=== PATIENT | female | born 1995 | race Caucasian/White ===

== ENCOUNTER 2023-04-23 12:05 | Emergency (ER) | payer OTHER, SELFPAY ==
[2023-04-23 12:15] VITALS: BP 135/77; PULSE 82; RESP 14; TEMP 36.8; O2SAT 96; BMI 29.3
[2023-04-23 12:41] LABS: Bilirubin Urine NEGATIVE (NEGATIVE); Blood Urine NEGATIVE (NEGATIVE); Clarity Urine CLEAR (CLEAR); Color Urine LT. YELLOW (YELLOW); Glucose Urine UA NEGATIVE (NEGATIVE); Ketones Urine NEGATIVE (NEGATIVE); Leukocyte Esterase Urine NEGATIVE (NEGATIVE); Nitrite Urine NEGATIVE (NEGATIVE); Protein Urine NEGATIVE (NEG/TRACE); Specific Gravity Urine <=1.005 (1.005-1.025); Urobilinogen Urine 0.2 EU/dL (0.2-1.0)
[2023-04-23 12:45] LABS: Urine Microscopic Indicated NO
--- NOTE | 2023-04-23 12:47 | ED_ITS ---
HPI - Female Genitourinary General Chief complaint: Urogenital-Female Stated complaint: UTI SYMPTOMS Time Seen by Provider: 04/23/23 12:41 Source: patient Mode of arrival: walk-in History of Present Illness HPI Narrative: 27-year-old female presents with concerns of or urinary tract infection. She hasn't had a period since February 21 and she has a 7-month-old boy. Dysuria hematuria but her urine was dark. No abdominal pain. Related Data Home Medications Medication Instructions Recorded Confirmed No Known Home Medications 04/23/23 04/23/23 Allergies Allergy/AdvReac Type Severity Reaction Status Date / Time amoxicillin Allergy Severe Verified 04/23/23 12:15 Penicillins Allergy Severe Verified 04/23/23 12:15 Review of Systems ROS Narrative A ten point review of systems is negative except as noted above. Exam Narrative Exam Narrative: Nurses note and vital signs reviewed and patient is not hypoxic. General: The patient appears well and in no apparent distress. Patient is resting comfortably on cart. Skin: Warm, dry, no pallor noted. There is no rash noted. Head: Normocephalic, atraumatic Eye: Normal conjunctiva, no drainage Ears, Nose, Mouth, and Throat: oral mucosa is moist. Nares patent. Cardiovascular: Regular Rate and Rhythm Respiratory: Patient is in no distress, no accessory muscle use, lungs are clear to auscultation, no wheezing, rales or rhonchi Back: non-tender GI: soft and nontender Musculoskeletal: The patient has no evidence of calf tenderness, no pitting edema, symmetrical pulses noted bilaterally Neurological: A&O, normal speech Psychiatric: Cooperative Constitutional Vital Signs, click to edit/add: Last Vital Signs Temp 98.2 F 04/23/23 12:15 Pulse 82 04/23/23 12:15 Resp 14 04/23/23 12:15 BP 135/77 H 04/23/23 12:15 Pulse Ox 96 04/23/23 12:15 O2 Del Method Room Air 04/23/23 12:15 Course Vital Signs Vital signs: Vital Signs Temperature 98.2 F 04/23/23 12:15 Pulse Rate 82 04/23/23 12:15 Respiratory Rate 14 04/23/23 12:15 Blood Pressure 135/77 H 04/23/23 12:15 Pulse Oximetry 96 04/23/23 12:15 Oxygen Delivery Method Room Air 04/23/23 12:15 Temperature 98.2 F 04/23/23 12:15 Pulse Rate 82 04/23/23 12:15 Respiratory Rate 14 04/23/23 12:15 Blood Pressure 135/77 H 04/23/23 12:15 Pulse Oximetry 96 04/23/23 12:15 Oxygen Delivery Method Room Air 04/23/23 12:15 MDM - Female Genitourinary MDM Narrative Medical decision making narrative: test is positive. No evidence of urinary tract infection and patient is informed. She'll follow-up with her probation and parole officer. I've no clinical concern for ectopic . Differential Diagnosis Differential diagnosis: Likely urinary tract infection and other () Lab Data Attestation: I reviewed the patient's lab results. Lab results narrative: test is positive. No evidence of urinary tract infection. Labs: Lab Results 04/23/23 Range/Units 12:20 Urine Color Lt. yellow (YELLOW) Urine Clarity Clear (CLEAR) Urine pH 6.0 (5.0-9.0) Ur Specific [place] <=1.005 A (1.005-1.025) Urine Protein Negative (NEG/TRACE) mg/dL Urine Glucose (UA) Negative (NEGATIVE) mg/dL Urine Ketones Negative (NEGATIVE) mg/dL Urine Occult Blood Negative (NEGATIVE) Urine Nitrite Negative (NEGATIVE) Urine Bilirubin Negative (NEGATIVE) Urine Urobilinogen 0.2 (0.2-1.0) EU/dL Ur Leukocyte Esterase Negative (NEGATIVE) Urine HCG, Qual Positive A (NEGATIVE) Discharge Plan Discharge Chief Complaint: Urogenital-Female Clinical Impression: Patient Disposition: Home, Self-Care Time of Disposition Decision: 14:13 Mode of Transportation: Private Vehicle Prescriptions / Home Meds: No Action No Known Home Medications Instructions: (ED) Stand Alone Forms: Portal Instructions Referrals: Physician,Non-Staff, [Primary Care Provider] - 1 week Discharge Date/Time: 04/23/23 14:18
[2023-04-23 13:46] LABS: HCG Qualitative Urine* POSITIVE (NEGATIVE)
== END 2023-04-23 14:18 | disposition home or self-care (01) ==
PROVIDERS: Emergency Provider Emergency Medicine
DX: Z32.01 Encounter for pregnancy test, result positive (principal)
CPT/HCPCS: 81003; 84703; 99283

== ENCOUNTER 2023-07-09 02:19 | Emergency (ER) | payer OTHER, SELFPAY ==
[2023-07-09 02:22] VITALS: BP 131/77; PULSE 83; RESP 18; TEMP 36.3; O2SAT 99; BMI 29.2
--- NOTE | 2023-07-09 02:34 | ED_ITS ---
HPI - Abdominal Pain General Chief Complaint: Abdominal Pain Stated Complaint: ABD PAIN 16 WKS PREG Time Seen by Provider: 07/09/23 02:32 Source: patient Mode of arrival: walk-in Limitations: no limitations History of Present Illness HPI narrative: 16 weeks . Presents complaining of abdominal pain. N urinary symptoms. No fever. MD elicited complaint: Reports abdominal pain Related Data Home Medications Medication Instructions Recorded Confirmed levothyroxine 25 mcg tablet 75 mcg PO DAILY 07/09/23 07/09/23 Allergies Allergy/AdvReac Type Severity Reaction Status Date / Time amoxicillin Allergy Severe Verified 04/23/23 12:15 Penicillins Allergy Severe Verified 04/23/23 12:15 Review of Systems ROS Status of ROS 10 or more systems reviewed and unremarkable except as noted in history and below Exam Constitutional Vital Signs, click to edit/add: Last Vital Signs Temp 97.3 F L 07/09/23 02:22 Pulse 83 07/09/23 02:22 Resp 18 07/09/23 02:22 BP 131/77 07/09/23 02:22 Pulse Ox 99 07/09/23 02:22 O2 Del Method Room Air 07/09/23 02:22 Common normals: no apparent distress, average body habitus, oriented x3, no limitations, healthy appearing and alert HENMI Common normals: normocephalic Eye Common normals: PERRL, EOMs intact bilaterally and conjunctivae normal Respiratory Common normals: normal respiratory effort, no retractions, no use of accessory muscles and clear to auscultation bilaterally Cardio Common normals: regular rate, regular rhythm, S1 normal heart sound and S2 normal heart sound GI Other: suprapubic tenderness Extremity Common normals: normal to inspection and full ROM Neuro Common normals: oriented x3, CN's II-XII intact bilaterally, moves all extremities, no focal motor deficits and no sensory deficits noted Psych Appearance: grossly normal Course Vital Signs Vital signs: Vital Signs Temperature 97.3 F L 07/09/23 02:22 Pulse Rate 83 07/09/23 02:22 Respiratory Rate 18 07/09/23 02:22 Blood Pressure 131/77 07/09/23 02:22 Pulse Oximetry 99 07/09/23 02:22 Oxygen Delivery Method Room Air 07/09/23 02:22 Temperature 97.3 F L 07/09/23 02:22 Pulse Rate 83 07/09/23 02:22 Respiratory Rate 18 07/09/23 02:22 Blood Pressure 131/77 07/09/23 02:22 Pulse Oximetry 99 07/09/23 02:22 Oxygen Delivery Method Room Air 07/09/23 02:22 MDM - Abdominal Pain MDM Narrative Medical decision making narrative: 16 wks . presents complaining of abdominal cramping. Exam with suprapubic tenderness. Labs CBC, CMP and UA WNL. Patient hydrated with NS and re examined. Admits now her abdomen is feeling better. on re exam she is no longer tender. Discharged home in improved condition Lab Data Labs: Lab Results 07/09/23 07/09/23 Range/Units 02:29 02:48 WBC 7.3 (4.0-11.0) 10^3/uL RBC 3.93 L (4.20-5.40) 10^6/uL Hgb 11.9 L (12.0-16.0) g/dL Hct 35.4 L (36.0-48.0) % MCV 90.1 (81.0-99.0) fL MCH 30.3 (26.7-34.0) pg MCHC 33.6 (29.9-35.2) g/dL RDW 12.9 (11.0-15.0) % Plt Count 254 (150-450) 10^3/uL MPV 9.9 (9.5-13.5) fL Neut % (Auto) 62.6 (43.0-75.0) % Lymph % (Auto) 27.0 (20.5-60.0) % [place] % (Auto) 7.8 (1.7-12.0) % Eos % (Auto) 1.8 (0.9-7.0) % Baso % (Auto) 0.5 (0.2-2.0) % Neut # (Auto) 4.6 (1.4-6.5) 10^3/uL Lymph # (Auto) 2.0 (1.2-3.8) 10^3/uL [place] # (Auto) 0.6 (0.3-0.8) 10^3/uL Eos # (Auto) 0.1 (0.0-0.7) 10^3/uL Baso # (Auto) 0.0 (0.0-0.1) 10^3/uL Abs Immat Gran (auto) 0.02 (0.00-0.03) 10^3/uL Imm/Tot Granulo (auto) 0.3 (0.0-0.5) % Sodium 137 (136-145) mmol/L Potassium 3.7 (3.5-5.1) mmol/L Chloride 104 (98-107) mmol/L Carbon Dioxide 23.5 (21.0-32.0) mmol/L Anion Gap 13.2 BUN 16.0 (7.0-18.0) mg/dL Creatinine 0.64 (0.55-1.02) mg/dL Est GFR ( Amer) >60 (>=60) Est GFR (Non-Af Amer) >60 (>=60) BUN/Creatinine Ratio 25.0 Glucose 76 (74-106) mg/dL Calcium 8.3 L (8.5-10.1) mg/dL Total Bilirubin 0.2 (0.2-1.0) mg/dL AST 14 L (15-37) U/L ALT <6 L (14-59) U/L Alkaline Phosphatase 38 L (46-116) U/L Total Protein 6.5 (6.4-8.2) g/dL Albumin 2.8 L (3.4-5.0) g/dL Globulin 3.7 g/dL Albumin/Globulin Ratio 0.8 Urine Color Lt. yellow (YELLOW) Urine Clarity Clear (CLEAR) Urine pH 6.5 (5.0-9.0) Ur Specific [place] 1.025 (1.005-1.025) Urine Protein Negative (NEG/TRACE) mg/dL Urine Glucose (UA) Negative (NEGATIVE) mg/dL Urine Ketones Negative (NEGATIVE) mg/dL Urine Occult Blood Negative (NEGATIVE) Urine Nitrite Negative (NEGATIVE) Urine Bilirubin Negative (NEGATIVE) Urine Urobilinogen 1.0 (0.2-1.0) EU/dL Ur Leukocyte Esterase Trace A (NEGATIVE) Urine RBC 0-2 (0-2) #/HPF Urine WBC 2-5 A (NONE SEEN) #/HPF Ur Squamous Epith Cells Few A (NONE/RARE) #/LPF Urine Crystals None seen (None Seen) #/HPF Urine Bacteria Trace A (NONE SEEN) #/HPF Urine Casts None seen (NONE SEEN) #/LPF Urine Mucus Trace A (NONE SEEN) Ur Culture Indicated? No Discharge Plan Discharge Chief Complaint: Abdominal Pain Clinical Impression: Abdominal pain during Patient Disposition: Home, Self-Care Prescriptions / Home Meds: No Action levothyroxine 25 mcg tablet 75 mcg PO DAILY Instructions: Abdominal Pain in (ED) Additional Instructions: drink plenty of fluids. Follow up in one day with your doctor for a recheck. Return if pain recurs Stand Alone Forms: Portal Instructions Referrals: Physician,Non-Staff, MD [Primary Care Provider] - 1 week
[2023-07-09 02:59] LABS: Bilirubin Urine NEGATIVE (NEGATIVE); Blood Urine NEGATIVE (NEGATIVE); Clarity Urine CLEAR (CLEAR); Color Urine LT. YELLOW (YELLOW); Glucose Urine UA NEGATIVE (NEGATIVE); Ketones Urine NEGATIVE (NEGATIVE); Leukocyte Esterase Urine TRACE (NEGATIVE); Nitrite Urine NEGATIVE (NEGATIVE); Protein Urine NEGATIVE (NEG/TRACE); Specific Gravity Urine 1.025 (1.005-1.025); pH Urine 6.5 (5.0-9.0)
[2023-07-09 02:59] LABS: Basophils Percent Auto 0.5 % (0.2-2.0); Eosinophils Absolute Auto 0.1 10^3/uL (0.0-0.7); Eosinophils Percent Auto 1.8 % (0.9-7.0); Hematocrit 35.4 % (36.0-48.0); Hemoglobin 11.9 g/dL (12.0-16.0); Immature Granulocytes Abs Auto 0.02 10^3/uL (0.00-0.03); Immature Granulocytes Pct Auto 0.3 % (0.0-0.5); Mean Corpuscular HGB Conc 33.6 g/dL (29.9-35.2); Mean Corpuscular Hemoglobin 30.3 pg (26.7-34.0); Mean Corpuscular Volume 90.1 fL (81.0-99.0); Mean Platelet Volume 9.9 fL (9.5-13.5); Monocytes Absolute Auto 0.6 10^3/uL (0.3-0.8); Monocytes Percent Auto 7.8 % (1.7-12.0); Neutrophils Absolute Auto 4.6 10^3/uL (1.4-6.5); Neutrophils Percent Auto 62.6 % (43.0-75.0); Platelet Count 254 10^3/uL (150-450); Red Blood Count 3.93 10^6/uL (4.20-5.40); Red Cell Distribution Width 12.9 % (11.0-15.0); White Blood Count 7.3 10^3/uL (4.0-11.0)
[2023-07-09 03:00] LABS: Urine Microscopic Indicated YES
[2023-07-09] MEDS: 0.9 % SODIUM CHLORIDE 1,000 ML 999 ML IV (03:06)
[2023-07-09 03:12] LABS: Bacteria Urine TRACE #/HPF (NONE SEEN); Mucus Urine TRACE (NONE SEEN); RBC Urine 0-2 #/HPF (0-2)
[2023-07-09 03:13] LABS: Cast Seen? NONE SEEN #/LPF (NONE SEEN); Crystals Seen? None Seen #/HPF (None Seen); Squamous Epithelial Cell Urine FEW #/LPF (NONE/RARE); Urine Culture Indicated NO
[2023-07-09 03:26] LABS: Alanine Aminotransferase <6 U/L (14-59); Albumin Globulin Ratio 0.8; Albumin Level 2.8 g/dL (3.4-5.0); Alkaline Phosphatase 38 U/L (46-116); Anion Gap 13.2; Aspartate Amino Transferase 14 U/L (15-37); Bilirubin Total 0.2 mg/dL (0.2-1.0); Calcium 8.3 mg/dL (8.5-10.1); Carbon Dioxide 23.5 mmol/L (21.0-32.0); Chloride 104 mmol/L (98-107); Estimated GFR (African America >60 (>=60); Estimated GFR (Non-African Ame >60 (>=60); Globulin 3.7 g/dL; Glucose 76 mg/dL (74-106); Potassium 3.7 mmol/L (3.5-5.1); Sodium 137 mmol/L (136-145); Total Protein 6.5 g/dL (6.4-8.2)
== END 2023-07-09 04:38 | disposition home or self-care (01) ==
PROVIDERS: Emergency Provider Internal Medicine
DX: O26.892 Other specified pregnancy related conditions, second trimester (principal); R10.9 Unspecified abdominal pain; Z3A.16 16 weeks gestation of pregnancy; Z79.890 Hormone replacement therapy
CPT/HCPCS: 36415; 80053; 81001; 85025; 99284

== ENCOUNTER 2023-07-17 10:10 | Outpatient (OUT) | payer OTHER, SELFPAY ==
[2023-07-17 12:22] LABS: Estimated Average Glucose 91 mg/dL; Glycohemoglobin A1C 4.8 % (4.5-6.2)
[2023-07-17 13:36] LABS: Thyroid Stimulating Hormone 4.087 uIU/mL (0.358-3.740)
[2023-07-18 07:10] LABS: HCV Antibody Non Reactive (Non Reactive); Rubella Antibodies, IgG <0.90 index (Immune >0.99)
[2023-07-19 01:09] LABS: AFP Value 30.7 ng/mL (.); Gest. Age on Collection Date 17.1 weeks (.); Insulin Dep Diabetes No (.); Maternal Age At EDD 30.1 yr (.); OSBR Risk 1 IN 10000 (.); Results Report (.)
== END 2023-07-17 10:11 | disposition home or self-care (01) ==
LOC: LAB 10:12
PROVIDERS: Visit Provider Obstetrics & Gynecology
DX: Z34.92 Encounter for supervision of normal pregnancy, unspecified, second trimester (principal)
CPT/HCPCS: 36415; 82105; 83036; 84443; 86762; 86803

== ENCOUNTER 2023-08-06 07:30 | Outpatient (OUT) | payer OTHER, SELFPAY ==
--- NOTE | 2023-08-06 07:35 | US_ITS ---
[address] [address] Patient Name: DEANDRA MOCTEZUMA MRN: [id number] date: 1995 Sex: F Assigned Patient Location: US Current Patient Location: US Accession/Order Number: [id number] Exam Date: 08/06/2023 07:45 Report Date: 08/06/2023 21:42 At the request of: JOSSE PURVIS Procedure: US OB anatomy EXAMINATION: US OB anatomy, US OB transvaginal HISTORY: Second Trimester Z34.92 COMPARISON: No relevant comparison available. TECHNIQUE: Transabdominal sonographic examination was performed for obstetrical and evaluation. FINDINGS: Number: 1 Heart Rate: 144.4 bpm H.B. /min Amniotic Fluid Volume: Subjectively normal Placental Location: Posterior fundal; lower margin 7.9 cm from os. Cervix Length: 4.2 cm; closed. ANATOMY: Normal Structures -cerebellum, choroid plexus, cisterna magna, lateral cerebral ventricles, orbits, midline falx, hard palate, four-chamber heart, RVOT, LVOT, stomach, kidneys, bladder, umbilical cord insertion into abdomen, three-vessel cord, cervical spine, thoracic spine, lumbar spine, sacral spine, right upper extremity, left upper extremity, right lower extremity, left lower extremity. SUBOPTIMALLY SEEN: None ABNORMALITIES: None BIOMETRY: BPD: 4.7 cm 20 weeks 1 days ; 48% HC: 17.2 cm 19 weeks 5 days; 25% AC: 15.5 cm 20 weeks 5 days; 62% FL: 2.8 cm 18 weeks 4 days; 5% EFW:309.6 grams; 24% FL/AC: 18.1 FL/BPD: 60.1 HC/AC: 1.1 GESTATIONAL AGE: Age by EDC: 20 weeks 1 days DARON by EDC: 12/23/2023 Age by current US: 19 weeks 6 days DARON by current US: 12/25/2023 US/US OB anatomy IMPRESSION: 1. Single live intrauterine with growth detailed above. 2. Femur length is at the 5th percentile. Electronically authenticated by: SUSHILA HERRERA Date: 08/06/2023 21:42
--- NOTE | 2023-08-06 07:35 | US_ITS ---
[address] [address] Patient Name: DEANDRA MOCTEZUMA MRN: [id number] date: 1995 Sex: F Assigned Patient Location: US Current Patient Location: US Accession/Order Number: [id number] Exam Date: 08/06/2023 07:45 Report Date: 08/06/2023 21:42 At the request of: JOSSE PURVIS Procedure: US OB transvaginal EXAMINATION: US OB anatomy, US OB transvaginal HISTORY: Second Trimester Z34.92 COMPARISON: No relevant comparison available. TECHNIQUE: Transabdominal sonographic examination was performed for obstetrical and evaluation. FINDINGS: Number: 1 Heart Rate: 144.4 bpm H.B. /min Amniotic Fluid Volume: Subjectively normal Placental Location: Posterior fundal; lower margin 7.9 cm from os. Cervix Length: 4.2 cm; closed. ANATOMY: Normal Structures -cerebellum, choroid plexus, cisterna magna, lateral cerebral ventricles, orbits, midline falx, hard palate, four-chamber heart, RVOT, LVOT, stomach, kidneys, bladder, umbilical cord insertion into abdomen, three-vessel cord, cervical spine, thoracic spine, lumbar spine, sacral spine, right upper extremity, left upper extremity, right lower extremity, left lower extremity. SUBOPTIMALLY SEEN: None ABNORMALITIES: None BIOMETRY: BPD: 4.7 cm 20 weeks 1 days ; 48% HC: 17.2 cm 19 weeks 5 days; 25% AC: 15.5 cm 20 weeks 5 days; 62% FL: 2.8 cm 18 weeks 4 days; 5% EFW:309.6 grams; 24% FL/AC: 18.1 FL/BPD: 60.1 HC/AC: 1.1 GESTATIONAL AGE: Age by EDC: 20 weeks 1 days DARON by EDC: 12/23/2023 Age by current US: 19 weeks 6 days DARON by current US: 12/25/2023 US/US OB transvaginal IMPRESSION: 1. Single live intrauterine with growth detailed above. 2. Femur length is at the 5th percentile. Electronically authenticated by: SUSHILA HERRERA Date: 08/06/2023 21:42
== END 2023-08-06 07:31 | disposition home or self-care (01) ==
LOC: US 07:30
PROVIDERS: Visit Provider Obstetrics & Gynecology
DX: Z34.92 Encounter for supervision of normal pregnancy, unspecified, second trimester (principal)
CPT/HCPCS: 76805; 76817

== ENCOUNTER 2023-09-03 10:51 | Outpatient (OUT) | payer OTHER, SELFPAY ==
--- NOTE | 2023-09-03 11:01 | US_ITS ---
[address] [address] Patient Name: DEANDRA MOCTEZUMA MRN: [id number] date: 1995 Sex: F Assigned Patient Location: US Current Patient Location: US Accession/Order Number: [id number] Exam Date: 09/03/2023 11:08 Report Date: 09/03/2023 21:34 At the request of: JOSSE PURVIS Procedure: US OB growth EXAMINATION: US OB growth HISTORY: Second Trimester Z34.92 COMPARISON: Ultrasound OB anatomy 08/06/2023 FINDINGS: Heart Rate: 140.6 bpm Number: 1.0 Position: Cephalic Amniotic Fluid Volume: 15.3 cm Maximum Vertical Pocket: 4.3 cm BIOMETRY: BPD: 6.1 cm cm; 24 weeks 6 days; 75% HC: 22.6 cmcm; 24 weeks 4 days ; 55% AC: 20.0 cm cm; 24 weeks 4 days; 61% FL: 3.8 cm cm; 22 weeks 1 days; 3% EFW: 617.4 grams; 27% FL/AC: 18.9 FL/BPD: 61.7 HC/AC: 1.1 GESTATIONAL AGE: Age by EDC: 24 weeks 0 days DARON by EDC: 12/24/2023 Age by US: 24 weeks 0 days DARON by US: 12/24/2023 US/US OB growth IMPRESSION: 1. Single live intrauterine with growth detailed above. 2. Femur length is < 3rd percentile. Electronically authenticated by: SUSHILA HERRERA Date: 09/03/2023 21:34
== END 2023-09-03 10:52 | disposition home or self-care (01) ==
LOC: US 10:51
PROVIDERS: Visit Provider Obstetrics & Gynecology
DX: M21.759 Unequal limb length (acquired), unspecified femur (principal); Z34.92 Encounter for supervision of normal pregnancy, unspecified, second trimester; Z3A.24 24 weeks gestation of pregnancy
CPT/HCPCS: 76816

== ENCOUNTER 2023-09-04 07:09 | Outpatient (OUT) | payer OTHER, SELFPAY ==
[2023-09-04 08:30] LABS: Basophils Percent Auto 0.5 % (0.2-2.0); Eosinophils Absolute Auto 0.1 10^3/uL (0.0-0.7); Eosinophils Percent Auto 1.1 % (0.9-7.0); Hematocrit 35.3 % (36.0-48.0); Hemoglobin 11.8 g/dL (12.0-16.0); Immature Granulocytes Abs Auto 0.06 10^3/uL (0.00-0.03); Immature Granulocytes Pct Auto 0.7 % (0.0-0.5); Lymphocytes Absolute Auto 1.5 10^3/uL (1.2-3.8); Lymphocytes Percent Auto 18.8 % (20.5-60.0); Mean Corpuscular HGB Conc 33.4 g/dL (29.9-35.2); Mean Corpuscular Volume 92.7 fL (81.0-99.0); Mean Platelet Volume 10.2 fL (9.5-13.5); Monocytes Absolute Auto 0.3 10^3/uL (0.3-0.8); Monocytes Percent Auto 4.1 % (1.7-12.0); Neutrophils Absolute Auto 6.1 10^3/uL (1.4-6.5); Neutrophils Percent Auto 74.8 % (43.0-75.0); Platelet Count 250 10^3/uL (150-450); Red Blood Count 3.81 10^6/uL (4.20-5.40); Red Cell Distribution Width 14.1 % (11.0-15.0); White Blood Count 8.1 10^3/uL (4.0-11.0)
[2023-09-04 08:36] LABS: Glucose 1 Hour 92 mg/dL
== END 2023-09-04 07:10 | disposition home or self-care (01) ==
LOC: LAB 07:09
PROVIDERS: Visit Provider Physician Assistant
DX: Z34.92 Encounter for supervision of normal pregnancy, unspecified, second trimester (principal)
CPT/HCPCS: 36415; 82950; 85025

== ENCOUNTER 2023-09-13 09:19 | Outpatient (OUT) | payer OTHER, SELFPAY ==
[2023-09-13 10:05] LABS: Thyroid Stimulating Hormone 3.057 uIU/mL (0.358-3.740)
== END 2023-09-13 09:20 | disposition home or self-care (01) ==
PROVIDERS: Visit Provider Obstetrics & Gynecology
DX: Z34.92 Encounter for supervision of normal pregnancy, unspecified, second trimester (principal)
CPT/HCPCS: 36415; 84443

== ENCOUNTER 2023-10-03 10:47 | Outpatient (OUT) | payer OTHER, SELFPAY ==
--- NOTE | 2023-10-03 | US_ITS ---
[address] [address] Patient Name: DEANDRA MOCTEZUMA MRN: [id number] date: 1995 Sex: F Assigned Patient Location: US Current Patient Location: US Accession/Order Number: [id number] Exam Date: 10/03/2023 10:49 Report Date: 10/03/2023 13:03 At the request of: JOSSE PURVIS Procedure: US OB growth PROCEDURE: US OB growth HISTORY: MATERNAL THYROID DISORDER COMPARISON: 09/03/2023 TECHNIQUE: Transabdominal sonographic examination was performed for obstetrical and evaluation. FINDINGS: Number: 1 Heart Rate: 140.0 bpm H.B. /min Amniotic Fluid Volume: 14.2 cm, normal. Largest fluid pocket 4.8 cm Placental Location: Posterior BIOMETRY: BPD: 7.3 cm 29 weeks 1 days , 64% HC: 26.6 cm 29 weeks 0 days , 35% AC:23.7 cm 28 weeks 0 days , 31% FL: 4.9 cm 26 weeks 3 days , less than 3% EFW: 1104.3 grams 2 lbs. 7 oz., 14% FL/AC: 20.5 FL/BPD: 66.9 HC/AC: 1.1 GESTATIONAL AGE: Age by EDC: 28 weeks 3 days DARON by EDC: 12/23/2023 Ultrasound Age: 28 weeks 1 days Ultrasound DARON: 12/25/2023 US/US OB growth IMPRESSION: Femur length less than the 3rd percentile. Otherwise normal interval growth *Reference: [facility] Practice Guideline for the performance of Obstetric Ultrasound Examinations, July 15, 2007. Electronically authenticated by: MERNA SILVA Date: 10/03/2023 13:03
--- OUTSIDE RECORDS SUMMARY | 2023-10-03 11:00 | XMS_ITS | CCD ---
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 108 mmol/L Normal 101-111 [facility] Comment on above: Performed By: #### 2 418001, 85275476, 9400225, 60862683, 8607952, 7899026, 37535044 ####[facility] [address] [place] [address] CO2 [Moles/Vol] 22 mmol/L Normal 21-31 [facility] Comment on above: Performed By: #### 2 642821, 55696736, 2511763, 29884519, 4360798, 6181580, 94709932 ####[facility] [address] [place] [address] Creatinine [Mass/Vol] 0.6 mg/dL Normal 0.5-1.3 [facility] Comment on above: Performed By: #### 2 264313, 47684701, 3832118, 12445274, 5552313, 9627621, 74328098 ####[facility] [address] [place] [address] Globulin (S) [Mass/Vol] 3.8 g/dL Normal 1.4-4.0 [facility] Comment on above: Performed By: #### 2 540842, 90196651, 2886859, 02978887, 0542911, 4767172, 46800723 ####[facility] [address] [place] [address] Glucose [Mass/Vol] 88 mg/dL Normal 55-199 [facility] Comment on above: Result Comment: If t his glucose result represents a fasting glucose, interpretation should refer to the following reference range: 55-99 mg/dL Performed By: #### 2 141978, 99388087, 3155080, 90002482, 4495733, 8035004, 68941685 ####[facility] [address] [place] [address] Potassium [Moles/Vol] 3.5 mmol/L Normal 3.5-5.3 [facility] Comment on above: Performed By: #### 2 010694, 94682161, 1194660, 68934980, 2150554, 3231012, 30496241 ####[facility] [address] [place] [address] Protein [Mass/Vol] 6.6 g/dL Normal 6.0-7.8 [facility] Comment on above: Performed By: #### 2 325344, 24573583, 8290077, 53226761, 1202902, 6762517, 78292803 ####[facility] [address] [place] [address] Sodium [Moles/Vol] 138 mmol/L Normal 135-145 [facility] Comment on above: Performed By: #### 2 547761, 70893664, 1780676, 94138951, 8120384, 5815095, 61243376 ####[facility] [address] [place] [address] Urea nitrogen [Mass/Vol] 7 mg/dL Normal 5-21 [facility] Comment on above: Performed By: #### 2 569365, 78784471, 8615731, 20552608, 1967971, 3878566, 50443304 ####[facility] [address] [place] [address] Urea nitrogen/Creatinine [Ma ss ratio] 12 No Units Normal 10-20 [facility] Comment on above: Performed By: #### 2 548240, 11356066, 0111862, 29985594, 3500958, 3010444, 35616801 ####[facility] [address] [place] [address] HEMATOLOGYOrdered By: SYSTEM SYSTEM on 08-23-2023 Basophils/100 WBC (Bld) 0.9 % Normal 0.0 - 2.0 % [facility] Basophils/Leukocytes Auto (B ld) [Pure # fraction] 0.1 E9/L Normal 0.0 - 0.2 E9/L [facility] Eosinophils/100 WBC (Bld) 1.3 % Normal 0.0 - 8.0 % [facility] Eosinophils/Leukocytes Auto (Bld) [Pure # fraction] 0.1 E9/L Normal 0.0 - 0.5 E9/L [facility] S Lymphocytes/100 WBC (Bld) 17.7 % Normal 14.0 - 50. 0 % [facility] Lymphocytes/Leukocytes Auto (Bld) [Pure # fraction] 1.4 E9/L Normal 1.0 - 4.0 E9/L [facility] S Monocytes/100 WBC (Bld) 5.1 % Normal 4.0 - 14.0 % [facility] Monocytes/Leukocytes Auto (B ld) [Pure # fraction] 0.4 E9/L Normal 0.2 - 1.0 E9/L [facility] Neutrophils/100 WBC (Bld) 75.0 % Normal 36.0 - 75. 0 % [facility] Neutrophils/Leukocytes Auto (Bld) [Pure # fraction] 5.8 E9/L Normal 2.0 - 7.5 E9/L [facility] HemeAutoS S HEMATOLOGYOrdered By: An Lassiter on 08-23-2023 Erythrocyte distribution wid th (RBC) [Ratio] 14.5 % High 10.9 - 14.2 % [facility] Hematocrit (Bld) [Volume fraction] 36.4 % Normal 34.0 - 46.0 % [facility] Hemoglobin (Bld) [Mass/Vol] 12.1 g/dL Normal 12.0 - 1 6.0 gm/dL [facility] MCH (RBC) [Entitic mass] 30.2 pg Normal 27.0 - 34.0 pg [facility] MCHC (RBC) [Mass/Vol] 33.3 g/dL Normal 31.4 - 36.0 gm /dL [facility] MCV (RBC) [Entitic vol] 90.8 fL Normal 80.0 - 100.0 fL [facility] Platelet mean volume (Bld) [Entitic vol] 9.7 fL Normal 6.4 - 10.8 fL [facility] Platelets (Bld) [#/Vol] 270.0 E9/L Normal 150.0 - 500. 0 E9/L [facility] RBC (Bld) [#/Vol] 4.0 E12/L Low 4.3 - 5.9 E12/L [facility] WBC corrected for nucl RBC A uto (Bld) [#/Vol] 7.7 E9/L Normal 4.0 - 11.0 E9/L [facility] Lipid Panelon 08-23-2023 Cholesterol [Mass/Vol] 238 mg/dL High 120-200 [facility] Comment on above: Performed By: #### 2 732922, 04327633, 5171419, 00962375, 8970216, 3113633, 01795484 ####[facility] [address] [place] [address] Cholesterol in HDL [Mass/Vol] 64 mg/dL Invalid Interpretation Code [facility] Comment on above: Result Comment: HDL > or equal to 60 mg/dL: Low cardiovascular riskHDL < 40 mg/dL : High cardiovascular risk Performed By: #### 2 901866, 21134669, 9491806, 90951195, 6661089, 0389977, 89123623 ####[facility] [address] [place] [address] Cholesterol in LDL [Mass/Vol] 146 mg/dL High <=129 [facility] Comment on above: Performed By: #### 2 560566, 39217355, 2346293, 33321886, 4556878, 5543819, 93769533 ####[facility] [address] [place] [address] Cholesterol in VLDL [Mass/Vol] 33 mg/dL Normal 7-40 [facility] Comment on above: Performed By: #### 2 464565, 23071235, 3502731, 63764674, 6394825, 9463796, 22748128 ####[facility] [address] [place] [address] Triglyceride [Mass/Vol] 164 mg/dL High <=149 F [facility] Comment on above: Performed By: #### 2 610947, 34012444, 7797974, 44954806, 9800579, 5570554, 81983932 ####[address] [place] [address] Physician Orderon 08-23-2023 Physician Order [id number]#1.00TIFF Normal [facility] T4 & TSHon 08-23-2023 T4 [Mass/Vol] 11.8 microgram/dL High 4.6-9.[address] [facility] Comment on above: Performed By: #### 2 580762, 11023576, 5989859, 08777830, 2270399, 0228126, 23611713 ####[facility] [address] [place] [address] TSH Qn 3.61 m[IU]/L Normal 0.34-5.60 [facility] Comment on above: Performed By: #### 2 685740, 91723173, 9295798, 98585505, 0405959, 6907929, 94482869 ####[facility] [address] [place] [address] eGFRon 08-23-2023 GFR/1.73 sq M.predicted jean g non-blacks MDRD (S/P/Bld) [Vol rate/Area] 125 mL/min/1.73 m2 Normal >=59 [facility] Comment on above: Order Comment: Order added by Discern Expert. Result Comment: Coil Inspector lucy kidney disease could be indicated at eGFR's of less than 60 mL/min/1.73m2. Kidney failure is indicated at less than 15 mL/min/1.73m2. Performed By: #### 2 444735, 97155119, 7856186, 34514866, 6624912, 0568207, 90268643 ####[facility] [address] [place] [address] Nursing Assessmenton 023 Nursing Assessment [id number]#1.00TIFF [facility] Consent for Treatmenton Consent for Treatment [id number]#1.00TIFF [facility] Discharge Instructionson Discharge Instructions [id number]#1.00TIFF [facility] Inpatient Clinical Summaryon 08-18-2023 Inpatient Clinical Summary Normal [facility] Inpatient Patient Summaryon 08-18-2023 Inpatient Patient Summary Normal [facility] Insurance Correspondenceon 10-18-2022 Insurance Correspondence [id number]#1.00TIFF [facility] Vaccinationson 08-18-2023 Vaccinations [id number]#1.0 0TIFF [facility] C Urineon 07-27-2023 Bacteria identified Cx Nom (U) [facility] Comment on above: Performed By: #### 2 053349, 29482397 ####[address] [address] ABO/Rhon 07-25-2023 ABO/Rh Positive Invalid Interpretation Code [facility] Comment on above: Performed By: #### 2 750966 ####[address] [address] Auto Diffon 07-25-2023 Basophils/100 WBC (Bld) 1.1 % Normal 0.0-2.0 [facility] Comment on above: Order Comment: Order Added by Discern Expert. Performed By: #### 1 3069497, 6220377, 9251460, 9573052, 5241350, 2402679 ####[address] [address] Basophils/Leukocytes Auto (B ld) [Pure # fraction] 0.1 E9/L Normal 0.0-0.2 [facility] Comment on above: Order Comment: Order Added by Discern Expert. Performed By: #### 1 4490431, 6749119, 4133626, 2040462, 9040575, 4635745 ####[address] [address] Eosinophils/100 WBC (Bld) 1.2 % Normal 0.0-8.0 [facility] Comment on above: Order Comment: Order Added by Discern Expert. Performed By: #### 1 8718977, 5299135, 2486197, 1246277, 8516027, 4918371 ####[address] [address] Eosinophils/Leukocytes Auto (Bld) [Pure # fraction] 0.1 E9/L Normal 0.0-0.5 [facility] Comment on above: Order Comment: Order Added by Discern Expert. Performed By: #### 1 8692608, 9563537, 7041445, 8829545, 1157479, 4023381 ####[address] [place] [address] Lymphocytes/100 WBC (Bld) 23.7 % Normal 14.0-50.0 [facility] Comment on above: Order Comment: Order Added by Discern Expert. Performed By: #### 1 4755932, 5868955, 7103050, 5308965, 1835427, 5677335 ####[facility] [address] [place] [address] Lymphocytes/Leukocytes Auto (Bld) [Pure # fraction] 1.4 E9/L Normal 1.0-4.0 [facility] Comment on above: Order Comment: Order Added by Discern Expert. Performed By: #### 1 6164226, 9480522, 9667907, 8280765, 1796502, 0168468 ####[address] [place] [address] Monocytes/100 WBC (Bld) 6.7 % Normal 4.0-14.0 [facility] Comment on above: Order Comment: Order Added by Discern Expert. Performed By: #### 1 1074326, 8429933, 9532127, 1045449, 7016142, 1122108 ####[address] [address] Monocytes/Leukocytes Auto (B ld) [Pure # fraction] 0.4 E9/L Normal 0.2-1.0 [facility] Comment on above: Order Comment: Order Added by Discern Expert. Performed By: #### 1 8098288, 4393404, 0845485, 4365827, 5426101, 5742767 ####[address] [place] [address] Neutrophils/100 WBC (Bld) 67.3 % Normal 36.0-75.0 [facility] Comment on above: Order Comment: Order Added by Discern Expert. Performed By: #### 1 9446545, 0428688, 9472314, 9663128, 0306596, 6209648 ####[address] [place] [address] Neutrophils/Leukocytes Auto (Bld) [Pure # fraction] 4.0 E9/L Normal 2.0-7.5 [facility] Comment on above: Order Comment: Order Added by Discern Expert. Performed By: #### 1 2540944, 5421093, 9313912, 8281145, 1712829, 0802097 ####[facility] [address] [place] [address] BLOOD BANKOrdered By: An Lassiter on 07-25-2023 ABO/Rh Interp Positive Invalid Interpretation Code [facility] BB Subsection BMPon 07-25-2023 Creatinine [Mass/Vol] 0.6 mg/dL Normal 0.5-1.3 [facility] Comment on above: Performed By: #### 1 3474819, 8915058, 5735547, 1318823, 8648662, 2525928 ####[facility] [address] [place] [address] Urea nitrogen [Mass/Vol] 6 mg/dL Normal 5-21 [facility] Comment on above: Performed By: #### 1 6739428, 8160389, 9359042, 2465039, 5628577, 9792293 ####[facility] [address] [place] [address] Urea nitrogen/Creatinine [Ma ss ratio] 10 No Units Normal 10-20 [facility] Comment on above: Performed By: #### 1 8200706, 5688455, 6241611, 9302870, 2916452, 4997399 ####[facility] [address] [place] [address] Anion gap [Moles/Vol] 2 mmol/L Low 6-16 [facility] Comment on above: Performed By: #### 1 7923565, 7640463, 0957120, 3248567, 5669569, 0920146 ####[facility] [address] [place] [address] Calcium [Mass/Vol] 8.6 mg/dL Low 8.9-11.1 [facility] Comment on above: Performed By: #### 1 7209523, 7253328, 1827640, 2016565, 4344649, 8870637 ####[facility] [address] [place] [address] Chloride [Moles/Vol] 107 mmol/L Normal 101-[address] [facility] Comment on above: Performed By: #### 1 0541428, 0728508, 0746385, 7708220, 0204393, 7902111 ####[facility] [address] [place] [address] CO2 [Moles/Vol] 27 mmol/L Normal 21-31 [facility] Comment on above: Performed By: #### 1 8445729, 8006816, 2463146, 6060359, 0551201, 5523967 ####[facility] [address] [place] [address] Glucose [Mass/Vol] 73 mg/dL Normal 55-199 [facility] Comment on above: Result Comment: If t his glucose result represents a fasting glucose, interpretation should refer to the following reference range: 55-99 mg/dL Performed By: #### 1 6750370, 5414287, 0396226, 3485256, 9889620, 7548429 ####[facility] [address] [place] [address] Potassium [Moles/Vol] 3.9 mmol/L Normal 3.5-5.3 [facility] Comment on above: Performed By: #### 1 1310405, 2129490, 9734935, 3731965, 2076293, 6900724 ####[facility] [address] [place] [address] Sodium [Moles/Vol] 132 mmol/L Low 135-145 [facility] Comment on above: Performed By: #### 1 4491887, 9511246, 7108825, 0008192, 2019184, 2720895 ####[facility] [address] [place] [address] BhCG Quanton 07-25-2023 [place] [address] m[IU]/mL High 1-3 F [facility] Comment on above: Result Comment: GEST ATIONAL AGE HCG RANGE (mIU/mL) NON- <1-3 0.2-1 WEEKS 5-50 1-2 WEEKS 50-500 2-3 WEEKS 100-5,000 3-4 WEEKS 500-10,000 4-5 WEEKS 1,000-50,000 5-6 WEEKS 10,000-100,000 6-8 WEEKS 15,000-200,000 8-12 WEEKS 10,000-100,000 Performed By: #### 2 051476 ####[facility] [address] [place] [address] CBC w/ Auto Diffon 3 Erythrocyte distribution wid th (RBC) [Ratio] 14.0 % Normal 10.9-14.2 [facility] Comment on above: Performed By: #### 1 8452447, 5354341, 1482891, 4724601, 6545829, 0820887 ####[facility] [address] [place] [address] Hematocrit (Bld) [Volume fraction] 37.1 % Normal 34.0-46.0 [facility] Comment on above: Performed By: #### 1 5093545, 2704877, 6182464, 9395055, 6177490, 1362350 ####[facility] [address] [place] [address] Hemoglobin (Bld) [Mass/Vol] 12.5 g/dL Normal 12.0-16. 0 [facility] Comment on above: Performed By: #### 1 5525975, 0230615, 1796615, 5076501, 1170985, 2334746 ####[facility] [address] [place] [address] MCH (RBC) [Entitic mass] 29.9 pg Normal 27.0-34.0 [facility] Comment on above: Performed By: #### 1 5519401, 0073937, 2085384, 7721840, 6352729, 3740160 ####[facility] [address] [place] [address] MCHC (RBC) [Mass/Vol] 33.8 g/dL Normal 31.4-36.0 [facility] Comment on above: Performed By: #### 1 8181679, 9907096, 7828664, 3246818, 5155066, 3037895 ####[facility] [address] [place] [address] MCV (RBC) [Entitic vol] 88.4 fL Normal 80.0-100.0 [facility] Comment on above: Performed By: #### 1 8452692, 2016431, 2049169, 9924148, 7411440, 9364290 ####[facility] [address] [place] [address] Platelet mean volume (Bld) [Entitic vol] 7.9 fL Normal 6.4-10.8 [facility] Comment on above: Performed By: #### 1 5235521, 0687170, 2010705, 4327413, 8812540, 3696326 ####[address] [address] Platelets (Bld) [#/Vol] 261.0 E9/L Normal 150.0-500.0 [facility] Comment on above: Performed By: #### 1 7833307, 3934467, 0561983, 8648741, 8718402, 8579933 ####[address] [address] RBC (Bld) [#/Vol] 4.2 E12/L Low 4.3-5.9 [facility] Comment on above: Performed By: #### 1 4666471, 2735554, 1878733, 8527620, 9728883, 9891825 ####[address] [place] [address] WBC corrected for nucl RBC A uto (Bld) [#/Vol] 5.9 E9/L Normal 4.0-11.0 [facility] Comment on above: Performed By: #### 1 3936065, 5567250, 4205503, 6278037, 8150594, 1433092 ####[address] [address] CHEMISTRYOrdered By: SYSTEM SYSTEM on 07-25-2023 Albumin [Mass/Vol] 3.1 g/dL Low 3.3 - 5.0 gm/dL [facility] Albumin/Globulin [Mass ratio] 0.9 {ratio} Low 1.1 - 2.2 [facility] ALP [Catalytic activity/Vol] 35 [iU]/d Normal 21 - 98 Int._Unit/L [facility] ALT No additional P-5'-P [Catalytic activity/Vol] 10 [iU]/d Normal 6 - 46 Int._Unit/L [facility] Anion gap [Moles/Vol] 2 mmol/L Low 6 - 16 mEq/L [facility] AST [Catalytic activity/Vol] 18 [iU]/d Normal 5 - 43 Int._Unit/L [facility] Bilirubin [Mass/Vol] 0.4 mg/dL Normal 0.0 - 1.1 mg/dL [facility] Bilirubin.direct [Mass/Vol] mg/dL Normal 0.1 - 0.4 mg/dL [facility] Bilirubin.indirect [Mass or moles/Vol] Unable to Calculate mg/dL Invalid Interpretation Code 0.1 - 0.9 mg/dL [facility] Calcium [Mass/Vol] 8.6 mg/dL Low 8.9 - 11. 1 mg/dL [facility] Chloride [Moles/Vol] 107 mmol/L Normal 101 - 111 mmol/L [facility] CO2 [Moles/Vol] 27 mmol/L Normal 21 - 31 mmol/L [facility] Creatinine [Mass/Vol] 0.6 mg/dL Normal 0.5 - 1.3 mg/dL [facility] GFR/1.73 sq M.predicted among non-blacks MDRD (S/P/Bld) [Vol rate/Area] 125 mL/min/1.73 m2 Normal >=59mL/min/1. 73 m2 [facility] Comment on above: Interpretive Data: C hronic kidney disease could be indicated at eGFR's of less than 60 mL/min/1.73m2. Kidney failure is indicated at less than 15 mL/min/1.73m2. Globulin (S) [Mass/Vol] 3.6 g/dL Normal 1.4 - 4.0 gm /dL [facility] Remisol Glucose [Mass/Vol] 73 mg/dL Normal 55 - 199 mg/dL [facility] Remisol Comment on above: Interpretive Data: I f this glucose result represents a fasting glucose, interpretation should refer to the following reference range: 55-99 mg/[place] [address] m[IU]/mL High 1 - 3 mIU/mL [facility] Remisol Comment on above: Interpretive Data: G ESTATIONAL AGE HCG RANGE (mIU/mL) NON- <1-3 0.2-1 WEEKS 5-50 1-2 WEEKS 50-500 2-3 WEEKS 100-5,000 3-4 WEEKS 500-10,000 4-5 WEEKS 1,000-50,000 5-6 WEEKS 10,000-100,000 6-8 WEEKS 15,000-200,000 8-12 WEEKS 10,000-100,000 Lipase [Catalytic activity/Vol] 28 U/L Normal 13 - 58 unit/L [facility] Remisol Potassium [Moles/Vol] 3.9 mmol/L Normal 3.5 - 5.3 mmol /L [facility] Remisol Protein [Mass/Vol] 6.7 g/dL Normal 6.0 - 7.8 gm/dL [facility]isol Sodium [Moles/Vol] 132 mmol/L Low 135 - 145 mmol/L [facility] Remisol Urea nitrogen [Mass/Vol] 6 mg/dL Normal 5 - 21 mg/d L [facility] Remisol Urea nitrogen/Creatinine [Mass ratio] 10 mg/mg Normal 10 - 20 [facility] Remisol Consent for Treatmenton 07-15 Consent for Treatment [id number]#1.00TIFF Normal [facility] Discharge Instructionson Discharge Instructions [id number]#1.00TIFF Normal [facility] ED Clinical Summaryon 2022 ED Clinical Summary Normal [facility] ED Note-Physicianon 07-25-20 ED Note-Physician Normal [facility] Comment on above: Result Comment: Elec tronically Signed By: PrachiJorge bartholomew PA-C\.br\Date and Time Signed: 07/25/23 10:02 EDT\.br\Electronically Co-Signed By: Kristian Guillermo DO.br\Date and Time Co- Signed: 07/25/23 20:25 EDT ED Patient Education Noteon 07-25-2023 ED Patient Education Note Normal [facility] ED Patient Summaryon 023 ED Patient Summary Normal [facility] HEMATOLOGYOrdered By: SYSTEM SYSTEM on 07-25-2023 Basophils/100 WBC (Bld) 1.1 % Normal 0.0 - 2.0 % [facility] Basophils/Leukocytes Auto (B ld) [Pure # fraction] 0.1 E9/L Normal 0.0 - 0.2 E9/L [facility] Eosinophils/100 WBC (Bld) 1.2 % Normal 0.0 - 8.0 % [facility] Eosinophils/Leukocytes Auto (Bld) [Pure # fraction] 0.1 E9/L Normal 0.0 - 0.5 E9/L [facility] S Lymphocytes/100 WBC (Bld) 23.7 % Normal 14.0 - 50. 0 % [facility] Lymphocytes/Leukocytes Auto (Bld) [Pure # fraction] 1.4 E9/L Normal 1.0 - 4.0 E9/L [facility] S Monocytes/100 WBC (Bld) 6.7 % Normal 4.0 - 14.0 % [facility] Monocytes/Leukocytes Auto (B ld) [Pure # fraction] 0.4 E9/L Normal 0.2 - 1.0 E9/L [facility] Neutrophils/100 WBC (Bld) 67.3 % Normal 36.0 - 75. 0 % [facility] Neutrophils/Leukocytes Auto (Bld) [Pure # fraction] 4.0 E9/L Normal 2.0 - 7.5 E9/L [facility] S HEMATOLOGYOrdered By: Luis Miguel Posadas on 07-25-2023 Erythrocyte distribution wid th (RBC) [Ratio] 14.0 % Normal 10.9 - 14.2 % [facility] Hematocrit (Bld) [Volume fraction] 37.1 % Normal 34.0 - 46.0 % [facility] Hemoglobin (Bld) [Mass/Vol] 12.5 g/dL Normal 12.0 - 1 6.0 gm/dL [facility] MCH (RBC) [Entitic mass] 29.9 pg Normal 27.0 - 34.0 pg [facility] MCHC (RBC) [Mass/Vol] 33.8 g/dL Normal 31.4 - 36.0 gm /dL [facility] MCV (RBC) [Entitic vol] 88.4 fL Normal 80.0 - 100.0 fL [facility] Platelet mean volume (Bld) [Entitic vol] 7.9 fL Normal 6.4 - 10.8 fL [facility] Platelets (Bld) [#/Vol] 261.0 E9/L Normal 150.0 - 500. 0 E9/L [facility] RBC (Bld) [#/Vol] 4.2 E12/L Low 4.3 - 5.9 E12/L [facility] WBC corrected for nucl RBC A uto (Bld) [#/Vol] 5.9 E9/L Normal 4.0 - 11.0 E9/L [facility] Hep Func Panelon 07-25-2023 Bilirubin.indirect [Mass or moles/Vol] UTC Abnormal 0.1-0.9 [facility] Comment on above: Result Comment: Resu lt verified by Discern Rule. Performed result UTC (Unable to Calculate) was sent as an Alpha code due the inability to calculate a valid numeric value. Performed By: #### 1 5753533, 6094634, 0515604, 9603055, 7962214, 9349569 ####[facility] [address] [place] [address] Albumin [Mass/Vol] 3.1 g/dL Low 3.3-5.0 [facility] Comment on above: Performed By: #### 1 [id number], [id number], 8629461, 0930176, 1470184, 4878613 ####[facility] [address] [place] [address] Albumin/Globulin (S) [Mass conc ratio] 0.9 Low 1.1-2.2 [facility] Comment on above: Performed By: #### 1 [id number], [id number], 7978082, 1713718, 4161669, 7185978 ####[facility] [address] [place] [address] ALP [Catalytic activity/Vol] 35 Int._Unit/L Normal 21- 98 [facility] Comment on above: Performed By: #### 1 [id number], [id number], 5306572, 4484475, 5488888, 2894493 ####[id number] [place] [address] ALT No additional P-5'-P [Catalytic activity/Vol] 10 Int._Unit/L Normal 6-46 [facility] Comment on above: Performed By: #### 1 [id number], 5291201, 8794337, 6807042, 0033624, 5040657 ####[id number] [place] [address] AST [Catalytic activity/Vol] 18 Int._Unit/L Normal 5-[address] [facility] Comment on above: Performed By: #### 1 [id number], 3656583, 7373043, 8484778, 0971845, 5081460 ####[address] [place] [address] Bilirubin [Mass/Vol] 0.4 mg/dL Normal 0.0-1.[address] [facility] Comment on above: Performed By: #### 1 [id number], 0984562, 8581895, 0142161, 6465137, 1648741 ####[facility] [address] [place] [address] Globulin (S) [Mass/Vol] 3.6 g/dL Normal 1.4-4.0 [facility] [facility] Comment on above: Performed By: #### 1 [id number], 4110109, 8806060, 2126368, 0690344, 4144079 ####[facility] [address] [place] [address] Protein [Mass/Vol] 6.7 g/dL Normal 6.0-7.8 [facility] Comment on above: Performed By: #### 1 7738107, 0899235, 6360172, 8029230, 1675882, 4212166 ####[facility] [address] [place] [address] Bilirubin.direct [Mass/Vol] mg/dL Normal 0.1-0.4 [facility] Comment on above: Performed By: #### 1 2225570, 0467989, 7538943, 7000907, 9132304, 9300435 ####[facility] [address] [place] [address] Lipase Levelon 07-25-2023 Lipase [Catalytic activity/Vol] 28 U/L Normal 13-[address] [facility] Comment on above: Performed By: #### 1 3233349, 8033146, 1594897, 1719471, 9537717, 5146880 ####[address] [address] UA With Cult Reflexon 2022 Bacteria LM Ql (Urine sed) TRACE Normal Trace [facility] Comment on above: Performed By: #### 2 479639, 45497184 ####[address] [address] Bilirubin Ql (U) Negative Normal Negative [facility] Comment on above: Performed By: #### 2 566550, 32611100 ####[address] [address] Clarity (U) SL CLOUDY Abnormal Clear [facility] Comment on above: Performed By: #### 2 257369, 54598333 ####[facility] [address] [place] [address] Color (U) YELLOW Normal Yellow [facility] Comment on above: Performed By: #### 2 309045, 86322049 ####[facility] [address] [place] [address] Epithelial cells.squamous LM .HPF (Urine sed) [#/Area] 0-2 Normal 0-2 [facility] Comment on above: Performed By: #### 2 982036, 34343015 ####[facility] [address] [place] [address] Glucose Test strip (U) [Mass/Vol] Negative Normal Negative [facility] Comment on above: Performed By: #### 2 241446, 67943276 ####[facility] [address] [place] [address] Hemoglobin Ql (U) Negative Normal Negative [facility] Comment on above: Performed By: #### 2 068772, 19765419 ####[facility] [address] [place] [address] Ketones (U) [Mass/Vol] Negative Normal Negative [facility] Comment on above: Performed By: #### 2 624269, 43750877 ####[address] [address] [place].plasma/[place].RBC (Bld) [Mass ratio] 0-3 N ormal 0-3 [facility] Comment on above: Performed By: #### 2 818666, 58258084 ####[facility] [address] [place] [address] Nitrite Ql (U) Negative Normal Negative [facility] Comment on above: Performed By: #### 2 947532, 45851244 ####[address] [address] pH (U) 7.5 [pH] Invalid Interpretation Code 5.0-9.0 [facility] Comment on above: Performed By: #### 2 866564, 65556580 ####[facility] [address] [place] [address] Protein (U) [Mass/Vol] Negative Normal Negative [facility] Comment on above: Performed By: #### 2 330627, 30942599 ####[facility] [address] [place] [address] Specific gravity (U) [Rel density] 1.010 Invalid Interpretation Code 1.005-1.[address] [facility] Comment on above: Performed By: #### 2 167416, 85853381 ####[facility] [address] [place] [address] Type of Urine collection method Clean Catch Normal [facility] Comment on above: Performed By: #### 2 782462, 44188804 ####[facility] [address] [place] [address] Urobilinogen Qn (U) 1.0 {Rola'U}/dL Normal 0.0-1.0 [facility] Comment on above: Performed By: #### 2 809441, 66843078 ####[facility] [address] [place] [address] WBC Auto Ql (U) 2+ Abnormal Negative [facility] Comment on above: Performed By: #### 2 979325, 07799053 ####[facility] [address] [place], [place] [address] WBC LM.HPF (Urine sed) [#/Area] 0-5 Normal 0-5 [facility] Comment on above: Performed By: #### 2 795779, 91656680 ####[facility] [address] [place] [address] URINALYSISOrdered By: Emy Aiken on 07-25-2023 Bacteria LM Ql (Urine sed) Trace /HPF Normal Trace/HPF FT UA Auto SS Bilirubin Ql (U) Negative (07/25/23 8:33 AM) Normal Negative [facility] UA Auto SS Clarity (U) Slightly Cloudy *ABN* (07/25/23 8:33 AM) Invalid Interpretation Code Clear [facility] UA Auto SS Color (U) Yellow (07/25/23 8:33 AM) Normal Yellow [facility] UA Auto SS Epithelial cells.squamous LM.HPF (Urine sed) [#/Area] 0-2 /HPF Normal 0-2/HPF [facility] UA Auto SS Glucose Test strip (U) [Mass/Vol] Negative (07/25/23 8:33 AM) Normal Negative [facility] UA Auto SS Hemoglobin Ql (U) Negative (07/25/23 8:33 AM) Normal Negative [facility] UA Auto SS Ketones (U) [Mass/Vol] Negative (07/25/23 8:33 AM) Normal Negative [facility] UA Auto SS [place].plasma/Lithi um.RBC (Bld) [Mass ratio] 0-3 /HPF Normal 0-3/HPF [facility] UA Auto SS Nitrite Ql (U) Negative (07/25/23 8:33 AM) Normal Negative [facility] UA Auto SS pH (U) 7.5 *NA* (07/25/23 8:33 AM) Invalid Interpretation Code 5.0 - 9.0 [facility] UA Auto SS Protein (U) [Mass/Vol] Negative (07/25/23 8:33 AM) Normal Negative [facility] UA Auto SS Specific gravity (U) [Rel density] 1.010 *NA* (07/25/23 8:33 AM) Invalid Interpretation Code 1.005 - 1.030 [facility] UA Auto SS UA Spec Desc Clean Catch (07/25/23 8:33 AM) Normal FT UA Auto SS Urobilinogen Qn (U) 1.8399573 {Rola'U}/dL Normal 0.0 - 1.0 EU/dL [facility] UA Auto SS WBC Auto Ql (U) 2+ *ABN* (07/25/23 8:33 AM) Invalid Interpretation Code Negative [facility] UA Auto SS WBC LM.HPF (Urine sed) [#/Area] 0-5 /HPF Normal 0-5/HPF [facility] UA Auto SS US Limitedon 07-25 US Limited Normal [facility] eGFRon 07-25-2023 GFR/1.73 sq M.predicted jean g non-blacks MDRD (S/P/Bld) [Vol rate/Area] 125 mL/min/1.73 m2 Normal >=59 [facility] Comment on above: Order Comment: Order added by Discern Expert. Result Comment: Coil Inspector lucy kidney disease could be indicated at eGFR's of less than 60 mL/min/1.73m2. Kidney failure is indicated at less than 15 mL/min/1.73m2. Performed By: #### 1 9721992, 4318180, 7532360, 9252290, 5401194, 3442240 ####[facility] [address] [place] [address] C Urineon 06-30-2023 Bacteria identified Cx Nom (U) Normal [facility] Comment on above: Performed By: #### 2 267423 ####[facility] [address] [place] [address] Family Medicine Office/Clini c Noteon 06-28-2023 Family Medicine Office/Clinic Note Normal [facility] Comment on above: Result Comment: Elec tronically Signed By: Татьяна NICHOLS, Roverto Dooley.br\Date and Time Signed: 06/28/23 11:41 EDT Patient Educationon 06-28-[address] [facility] ABO/Rhon 06-14-2023 ABO/Rh Positive Invalid Interpretation Code [facility] Comment on above: Performed By: #### 2 759810 ####[facility] [address] [place] [address] Auto Diffon 06-14-2023 Basophils/100 WBC (Bld) 0.8 % Normal 0.0-2.0 F [facility] Comment on above: Order Comment: Order Added by Discern Expert. Performed By: #### 2 547942, 8864739, 4808410, 2882145, 7052169, 99593417 ####[facility] [address] [place] [address] Basophils/Leukocytes Auto (B ld) [Pure # fraction] 0.0 E9/L Normal 0.0-0.2 [facility] Comment on above: Order Comment: Order Added by Discern Expert. Performed By: #### 2 580948, 5141245, 2796559, 9795249, 2820950, 88266760 ####[facility] [address] [place] [address] Eosinophils/100 WBC (Bld) 1.9 % Normal 0.0-8.0 [facility] Comment on above: Order Comment: Order Added by Discern Expert. Performed By: #### 2 721781, 0419246, 4748136, 0395072, 8734931, 11571125 ####[facility] [address] [place] [address] Eosinophils/Leukocytes Auto (Bld) [Pure # fraction] 0.1 E9/L Normal 0.0-0.5 [facility] Comment on above: Order Comment: Order Added by Discern Expert. Performed By: #### 2 104579, 2550008, 3021027, 5552101, 9696160, 57824955 ####[address] [place] [address] Lymphocytes/100 WBC (Bld) 24.5 % Normal 14.0-50.0 [facility] Comment on above: Order Comment: Order Added by Discern Expert. Performed By: #### 2 427792, 0229604, 9035532, 1042119, 2194910, 83725241 ####[address] [address] Lymphocytes/Leukocytes Auto (Bld) [Pure # fraction] 1.3 E9/L Normal 1.0-4.0 [facility] Comment on above: Order Comment: Order Added by Discern Expert. Performed By: #### 2 959349, 3982218, 4673150, 6751324, 3374008, 25592457 ####[address] [address] Monocytes/100 WBC (Bld) 7.8 % Normal 4.0-14.0 [facility] Comment on above: Order Comment: Order Added by Discern Expert. Performed By: #### 2 195031, 6333097, 7627838, 3484260, 9515212, 49612877 ####[address] [place] [address] Monocytes/Leukocytes Auto (B ld) [Pure # fraction] 0.4 E9/L Normal 0.2-1.0 [facility] Comment on above: Order Comment: Order Added by Gisselle Expert. Performed By: #### 2 549255, 2291921, 8353121, 2616753, 7133455, 40393128 ####[address] [address] Neutrophils/100 WBC (Bld) 65.0 % Normal 36.0-75.0 [facility] Comment on above: Order Comment: Order Added by Discern Expert. Performed By: #### 2 785144, 8286833, 7209171, 7294938, 9212168, 71706221 ####[facility] [address] [place] [address] Neutrophils/Leukocytes Auto (Bld) [Pure # fraction] 3.5 E9/L Normal 2.0-7.5 [facility] Comment on above: Order Comment: Order Added by Discern Expert. Performed By: #### 2 346968, 7549755, 5841163, 5846255, 5469116, 13024978 ####[facility] [address] [place] [address] BLOOD BANKOrdered By: Keila Kumar on 06-14-2023 ABO/Rh Interp Positive Invalid Interpretation Code [facility] BB Subsection BMPon 06-14-2023 Creatinine [Mass/Vol] 0.5 mg/dL Normal 0.5-1.3 [facility] Comment on above: Performed By: #### 2 435943, 8778374, 8269061, 9983289, 5252899, 01866932 ####[facility] [address] [place] [address] Urea nitrogen [Mass/Vol] 6 mg/dL Normal 5-21 [facility] Comment on above: Performed By: #### 2 734033, 9621611, 9193927, 3174694, 5762140, 82450446 ####[facility] [address] [place] [address] Urea nitrogen/Creatinine [Ma ss ratio] 12 No Units Normal 10-20 [facility] Comment on above: Performed By: #### 2 896225, 5244334, 4524558, 0370107, 0727220, 27977209 ####[facility] [address] [place] [address] Anion gap [Moles/Vol] 10 mmol/L Normal 6-16 [facility] Comment on above: Performed By: #### 2 570574, 9523095, 0521949, 1248228, 2909711, 47063545 ####[facility] [address] [place] [address] Calcium [Mass/Vol] 8.7 mg/dL Low 8.9-11.1 [facility] Comment on above: Performed By: #### 2 621887, 7561689, 4357548, 2219537, 8653232, 16027349 ####[facility] [address] [place] [address] Chloride [Moles/Vol] 107 mmol/L Normal 101-111 [facility] Comment on above: Performed By: #### 2 655312, 7341807, 2410978, 0834891, 8376932, 46897761 ####[facility] [address] [place] [address] CO2 [Moles/Vol] 21 mmol/L Normal 21-31 [facility] Comment on above: Performed By: #### 2 492775, 1733832, 9595147, 4323661, 4187817, 46084046 ####[facility] [address] [place] [address] Glucose [Mass/Vol] 77 mg/dL Normal 55-199 [facility] Comment on above: Result Comment: If t his glucose result represents a fasting glucose, interpretation should refer to the following reference range: 55-99 mg/dL Performed By: #### 2 700421, 2411533, 1385609, 8916735, 1788927, 78564928 ####[facility] [address] [place] [address] Potassium [Moles/Vol] 3.8 mmol/L Normal 3.5-5.3 [facility] Comment on above: Performed By: #### 2 965061, 2056124, 2249107, 8145022, 8122393, 80502504 ####[facility] [address] [place] [address] Sodium [Moles/Vol] 134 mmol/L Low 135-145 [facility] Comment on above: Performed By: #### 2 122007, 6390344, 5357562, 8601132, 9460269, 52712121 ####[facility] [address] [place] [address] BhCG Quanton 06-14-2023 HCG.beta subunit Qn 670401 m[IU]/mL High 1-3 [facility] Comment on above: Result Comment: GEST ATIONAL AGE HCG RANGE (mIU/mL) NON- <1-3 0.2-1 WEEKS 5-50 1-2 WEEKS 50-500 2-3 WEEKS 100-5,000 3-4 WEEKS 500-10,000 4-5 WEEKS 1,000-50,000 5-6 WEEKS 10,000-100,000 6-8 WEEKS 15,000-200,000 8-12 WEEKS 10,000-100,000 Performed By: #### 2 233101 ####[facility] [address] [place] [address] CBC w/ Auto Diffon Erythrocyte distribution wid th (RBC) [Ratio] 12.6 % Normal 10.9-14.2 [facility] Comment on above: Performed By: #### 2 656495, 0594752, 6019698, 1730511, 7779089, 40789370 ####[facility] [address] [place] [address] Hematocrit (Bld) [Volume fraction] 39.9 % Normal 34.0-46.0 [facility] Comment on above: Performed By: #### 2 134891, 7424869, 0384711, 6117973, 1437784, 70551315 ####[facility] [address] [place] [address] Hemoglobin (Bld) [Mass/Vol] 13.4 g/dL Normal 12.0-16. 0 [facility] Comment on above: Performed By: #### 2 969593, 6189215, 3959361, 2852609, 5731924, 77113887 ####[facility] [address] [place] [address] MCH (RBC) [Entitic mass] 29.8 pg Normal 27.0-34.0 [facility] Comment on above: Performed By: #### 2 175904, 2493381, 7482875, 5313870, 8380908, 72930890 ####[address] [address] MCHC (RBC) [Mass/Vol] 33.6 g/dL Normal 31.4-36.0 [facility] Comment on above: Performed By: #### 2 996372, 0923691, 6548360, 7579749, 3248785, 99023012 ####[address] [address] MCV (RBC) [Entitic vol] 88.8 fL Normal 80.0-100.0 F [facility] Comment on above: Performed By: #### 2 037205, 7545296, 1173519, 1375458, 0620160, 73557878 ####[address] [address] Platelet mean volume (Bld) [Entitic vol] 8.4 fL Normal 6.4-10.8 [facility] Comment on above: Performed By: #### 2 395089, 6342612, 6613675, 6532209, 4900742, 43332445 ####[address] [address] Platelets (Bld) [#/Vol] 225.0 E9/L Normal 150.0-500.0 [facility] Comment on above: Performed By: #### 2 463456, 9560319, 6699491, 4126027, 5321080, 48963074 ####[address] [address] RBC (Bld) [#/Vol] 4.5 E12/L Normal 4.3-5.9 [facility] Comment on above: Performed By: #### 2 458090, 6607934, 0058883, 0322787, 4228873, 59063785 ####[facility] [address] [place] [address] WBC corrected for nucl RBC A uto (Bld) [#/Vol] 5.4 E9/L Normal 4.0-11.0 [facility] Comment on above: Performed By: #### 2 535203, 9027718, 6795186, 9387338, 6383101, 13221946 ####[facility] [address] [place] [address] CHEMISTRYOrdered By: SYSTEM SYSTEM on 06-14-2023 Albumin [Mass/Vol] 3.5 g/dL Normal 3.3 - 5.0 gm/dL [facility] Remisol Albumin/Globulin [Mass ratio] 1.1 {ratio} Normal 1.1 - 2.2 [facility] ALP [Catalytic activity/Vol] 34 [iU]/d Normal 21 - 98 Int._Unit/L [facility] ALT No additional P-5'-P [Catalytic activity/Vol] 13 [iU]/d Normal 6 - 46 Int._Unit/L [facility] Anion gap [Moles/Vol] 10 mmol/L Normal 6 - 16 mEq/L [facility] AST [Catalytic activity/Vol] 17 [iU]/d Normal 5 - 43 Int._Unit/L [facility] Bilirubin [Mass/Vol] 0.6 mg/dL Normal 0.0 - 1.1 mg/dL [facility] Bilirubin.direct [Mass/Vol] mg/dL Normal 0.1 - 0.4 mg/dL [facility] Bilirubin.indirect [Mass or moles/Vol] Unable to Calculate mg/dL Invalid Interpretation Code 0.1 - 0.9 mg/dL [facility] Calcium [Mass/Vol] 8.7 mg/dL Low 8.9 - 11. 1 mg/dL [facility] Chloride [Moles/Vol] 107 mmol/L Normal 101 - 111 mmol/L [facility] CO2 [Moles/Vol] 21 mmol/L Normal 21 - 31 mmol/L [facility] Creatinine [Mass/Vol] 0.5 mg/dL Normal 0.5 - 1.3 mg/dL [facility] GFR/1.73 sq M.predicted among non-blacks MDRD (S/P/Bld) [Vol rate/Area] 130 mL/min/1.73 m2 Normal >=59mL/min/1. 73 m2 [facility] Chem S Globulin (S) [Mass/Vol] 3.3 g/dL Normal 1.4 - 4.0 gm/dL [facility] Glucose [Mass/Vol] 77 mg/dL Normal 55 - 199 mg/dL [facility] HCG.beta subunit Qn 463817 m[IU]/mL High 1 - 3 mIU/m L [facility] Lipase [Catalytic activity/Vol] 28 U/L Normal 13 - 58 unit/L [facility] Potassium [Moles/Vol] 3.8 mmol/L Normal 3.5 - 5.3 mmol/L [facility] Protein [Mass/Vol] 6.8 g/dL Normal 6.0 - 7.8 gm/dL [facility] Sodium [Moles/Vol] 134 mmol/L Low 135 - 145 mmol/L [facility] Urea nitrogen [Mass/Vol] 6 mg/dL Normal 5 - 21 mg/dL [facility] Urea nitrogen/Creatinine [Mass ratio] 12 mg/mg Normal 10 - 20 [facility] Consent for Treatmenton 05-17 Consent for Treatment [id number] [facility] ED Clinical Summaryon 2022 ED Clinical Summary Normal [facility] ED Note-Physicianon 06-14-20 ED Note-Physician Normal [facility] Comment on above: Result Comment: Elec tronically Signed By: Jos Ugalde PA-C\.br\Date and Time Signed: 06/14/23 11:58 EDT\.br\Electronically Co-Signed By: Kristian Guillermo DO\.br\Date and Time Co-Signed: 06/14/23 17:02 EDT ED Patient Education Noteon 06-14-2023 ED Patient Education Note Normal [facility] ED Patient Summaryon 08-31-2 023 ED Patient Summary Normal [facility] HEMATOLOGYOrdered By: SYSTEM SYSTEM on 06-14-2023 Basophils/100 WBC (Bld) 0.8 % Normal 0.0 - 2.0 % [facility] HemeAutoSS Basophils/Leukocytes Auto (B ld) [Pure # fraction] 0.0 E9/L Normal 0.0 - 0.2 E9/L [facility] HemeAutoSS Eosinophils/100 WBC (Bld) 1.9 % Normal 0.0 - 8.0 % [facility] HemeAutoSS Eosinophils/Leukocytes Auto (Bld) [Pure # fraction] 0.1 E9/L Normal 0.0 - 0.5 E9/L [facility] HemeAutoS S Lymphocytes/100 WBC (Bld) 24.5 % Normal 14.0 - 50. 0 % [facility] HemeAutoSS Lymphocytes/Leukocytes Auto (Bld) [Pure # fraction] 1.3 E9/L Normal 1.0 - 4.0 E9/L [facility] HemeAutoS S Monocytes/100 WBC (Bld) 7.8 % Normal 4.0 - 14.0 % [facility] HemeAutoSS Monocytes/Leukocytes Auto (B ld) [Pure # fraction] 0.4 E9/L Normal 0.2 - 1.0 E9/L [facility] HemeAutoSS Neutrophils/100 WBC (Bld) 65.0 % Normal 36.0 - 75. 0 % [facility] HemeAutoSS Neutrophils/Leukocytes Auto (Bld) [Pure # fraction] 3.5 E9/L Normal 2.0 - 7.5 E9/L [facility] HemeAutoS S HEMATOLOGYOrdered By: Keila Kumar on 06-14-2023 Erythrocyte distribution wid th (RBC) [Ratio] 12.6 % Normal 10.9 - 14.2 % [facility] HemeAutoSS Hematocrit (Bld) [Volume fraction] 39.9 % Normal 34.0 - 46.0 % [facility] HemeAutoSS Hemoglobin (Bld) [Mass/Vol] 13.4 g/dL Normal 12.0 - 1 6.0 gm/dL [facility] HemeAutoSS MCH (RBC) [Entitic mass] 29.8 pg Normal 27.0 - 34.0 pg [facility] HemeAutoSS MCHC (RBC) [Mass/Vol] 33.6 g/dL Normal 31.4 - 36.0 gm /dL [facility] HemeAutoSS MCV (RBC) [Entitic vol] 88.8 fL Normal 80.0 - 100.0 fL [facility] HemeAutoSS Platelet mean volume (Bld) [Entitic vol] 8.4 fL Normal 6.4 - 10.8 fL [facility] HemeAutoSS Platelets (Bld) [#/Vol] 225.0 E9/L Normal 150.0 - 500. 0 E9/L [facility] HemeAutoSS RBC (Bld) [#/Vol] 4.5 E12/L Normal 4.3 - 5.9 E12/L [facility] HemeAutoSS WBC corrected for nucl RBC A uto (Bld) [#/Vol] 5.4 E9/L Normal 4.0 - 11.0 E9/L [facility] HemeAutoSS Hep Func Panelon 06-14-2023 Bilirubin.indirect [Mass or moles/Vol] UTC Abnormal 0.1-0.9 [facility] Comment on above: Result Comment: Resu lt verified by Discern Rule. Performed result UTC (Unable to Calculate) was sent as an Alpha code due the inability to calculate a valid numeric value. Performed By: #### 2 645048, 4881618, 3013377, 7714577, 2028192, 48016933 ####[facility] [address] [place] [address] Albumin [Mass/Vol] 3.5 g/dL Normal 3.3-5.0 [facility] Comment on above: Performed By: #### 2 167852, 3660010, 0150374, 6211066, 5735322, 48578978 ####[facility] [address] [place] [address] Albumin/Globulin (S) [Mass conc ratio] 1.1 Normal 1.1-2.2 [facility] Comment on above: Performed By: #### 2 296131, 6586690, 2561763, 0080130, 7352149, 79163817 ####[facility] [address] [place] [address] ALP [Catalytic activity/Vol] 34 Int._Unit/L Normal 21- 98 [facility] Comment on above: Performed By: #### 2 226130, 2820021, 3250953, 1077120, 7338744, 85121074 ####[facility] [address] [place] [address] ALT No additional P-5'-P [Catalytic activity/Vol] 13 Int._Unit/L Normal 6-46 [facility] Comment on above: Performed By: #### 2 553276, 4822462, 1828942, 3478388, 1199774, 92054796 ####[facility] [address] [place] [address] AST [Catalytic activity/Vol] 17 Int._Unit/L Normal 5-[address] [facility] Comment on above: Performed By: #### 2 002316, 8297816, 8539290, 4013667, 9999173, 37878479 ####[address] [address] Bilirubin [Mass/Vol] 0.6 mg/dL Normal 0.0-1.1 [facility] Comment on above: Performed By: #### 2 894395, 1076556, 7406117, 2162159, 6086484, 82606843 ####[address] [place] [address] Globulin (S) [Mass/Vol] 3.3 g/dL Normal 1.4-4.0 F [facility] Comment on above: Performed By: #### 2 544917, 8994061, 3486021, 9518594, 4547594, 83061518 ####[facility] [address] [place] [address] Protein [Mass/Vol] 6.8 g/dL Normal 6.0-7.8 [facility] Comment on above: Performed By: #### 2 189345, 4967273, 8660649, 2300461, 6081672, 06824928 ####[address] [place] [address] Bilirubin.direct [Mass/Vol] mg/dL Normal 0.1-0.4 [facility] Comment on above: Performed By: #### 2 673415, 6847510, 1444809, 6940479, 4791380, 15615300 ####[facility] [address] [place] [address] Lipase Levelon 06-14-2023 Lipase [Catalytic activity/Vol] 28 U/L Normal 13-[address] [facility] Comment on above: Performed By: #### 2 065577, 7604685, 6556660, 0233814, 2581227, 20966632 ####[facility] [address] [place] [address] Progress Note-Nurseon 2022 Progress Note-Nurse MAHESH Hinds verbalize d she was unable to locate patient at this time Normal [facility] UA With Cult Reflexon 2022 Bacteria LM Ql (Urine sed) TRACE Normal Trace [facility] Comment on above: Performed By: #### 1 1464354 ####[address] [address] Bilirubin Ql (U) Negative Normal Negative [facility] Comment on above: Performed By: #### 1 3841450 ####[address] [address] Clarity (U) CLEAR Normal Clear [facility] Comment on above: Performed By: #### 1 3857092 ####[address] [address] Color (U) YELLOW Normal Yellow [facility] Comment on above: Performed By: #### 1 5180580 ####[address] [address] Epithelial cells.squamous LM .HPF (Urine sed) [#/Area] 3-4 Normal 0-2 [facility] Comment on above: Performed By: #### 1 7625953 ####[facility] [address] [place] [address] Glucose Test strip (U) [Mass/Vol] Negative Normal Negative [facility] Comment on above: Performed By: #### 1 5577397 ####[address] [address] Hemoglobin Ql (U) Negative Normal Negative [facility] Comment on above: Performed By: #### 1 9205094 ####[address] [address] Ketones (U) [Mass/Vol] Negative Normal Negative [facility] Comment on above: Performed By: #### 1 6993895 ####[address] [address] [place].plasma/[place].RBC (Bld) [Mass ratio] 0-3 N ormal 0-3 [facility] Comment on above: Performed By: #### 1 8790227 ####[address] [address] Mucus Ql (Urine sed) TRACE Normal [facility] Comment on above: Performed By: #### 1 7307737 ####[address] [address] Nitrite Ql (U) Negative Normal Negative [facility] Comment on above: Performed By: #### 1 [id number] ####[address] [address] pH (U) 6.5 [pH] Invalid Interpretation Code 5.0-9.0 [facility] Comment on above: Performed By: #### 1 [id number] ####[address] [address] Protein (U) [Mass/Vol] Negative Normal Negative [facility] Comment on above: Performed By: #### 1 [id number] ####[address] [address] Specific gravity (U) [Rel density] 1.015 Invalid Interpretation Code 1.005-1.030 [facility] Comment on above: Performed By: #### 1 [id number] ####[address] [address] Type of Urine collection method Clean Catch Normal [facility] Comment on above: Performed By: #### 1 [id number] ####[facility] [address] [place] [address] Urobilinogen Qn (U) 0.2 {Rola'U}/dL Normal 0.0-1.0 [facility] Comment on above: Performed By: #### 1 [id number] ####[facility] [address] [place] [address] WBC Auto Ql (U) TRACE Abnormal Negative [facility] Comment on above: Performed By: #### 1 [id number] ####[facility] [address] [place] [address] WBC LM.HPF (Urine sed) [#/Area] 0-5 Normal 0-5 [facility] Comment on above: Performed By: #### 1 6141210 ####[facility] [address] [place] [address] URINALYSISOrdered By: An Mccarty on 06-14-2023 Bacteria LM Ql (Urine sed) Trace /HPF Normal Trace/HPF [facility] Auto SS Bilirubin Ql (U) Negative (06/14/23 10:13 AM) Normal Negative [facility] UA Auto SS Clarity (U) Clear (06/14/23 10:13 AM) Normal Clear [facility] UA Auto SS Color (U) Yellow (06/14/23 10:13 AM) Normal Yellow [facility] Auto SS Epithelial cells.squamous LM.HPF (Urine sed) [#/Area] 3-4 /HPF Normal 0-2/HPF [facility] UA Auto SS Glucose Test strip (U) [Mass/Vol] Negative (06/14/23 10:13 AM) Normal Negative [facility] UA Auto SS Hemoglobin Ql (U) Negative (06/14/23 10:13 AM) Normal Negative [facility] UA Auto SS Ketones (U) [Mass/Vol] Negative (06/14/23 10:13 AM) Normal Negative [facility] UA Auto SS [place].plasma/Lithi um.RBC (Bld) [Mass ratio] 0-3 /HPF Normal 0-3/HPF [facility] UA Auto SS Mucus Ql (Urine sed) Trace (06/14/23 10:13 AM) Normal [facility] UA Auto SS Nitrite Ql (U) Negative (06/14/23 10:13 AM) Normal Negative [facility] UA Auto SS pH (U) 6.5 *NA* (06/14/23 10:13 AM) Invalid Interpretation Code 5.0 - 9.0 [facility] UA Auto SS Protein (U) [Mass/Vol] Negative (06/14/23 10:13 AM) Normal Negative [facility] UA Auto SS Specific gravity (U) [Rel density] 1.015 *NA* (06/14/23 10:13 AM) Invalid Interpretation Code 1.005 - 1.030 [facility] UA Auto SS UA Spec Desc Clean Catch (06/14/23 10:13 AM) Normal [facility] UA Auto SS Urobilinogen Qn (U) 0.6285623 {Rola'U}/dL Normal 0.0 - 1.0 EU/dL [facility] UA Auto SS WBC Auto Ql (U) Trace *ABN* (06/14/23 10:13 AM) Invalid Interpretation Code Negative [facility] UA Auto SS WBC LM.HPF (Urine sed) [#/Area] 0-5 /HPF Normal 0-5/HPF [facility] UA Auto SS US 1st Trimesteron 06-14-2023 US 1st Trimester Normal [facility] eGFRon 06-14-2023 GFR/1.73 sq M.predicted jean g non-blacks MDRD (S/P/Bld) [Vol rate/Area] 130 mL/min/1.73 m2 Normal >=59 [facility] Comment on above: Order Comment: Order added by Discern Expert. Result Comment: Coil Inspector lucy kidney disease could be indicated at eGFR's of less than 60 mL/min/1.73m2. Kidney failure is indicated at less than 15 mL/min/1.73m2. Performed By: #### 2 098367, 9115715, 1856689, 3972681, 7097884, 62472917 ####[address] [place] [address] CHEMISTRYOrdered By: SYSTEM SYSTEM on 06-12-2023 TSH Qn 3.80 m[IU]/L Normal 0.34 - 5.60 mcIU/mL FTM C Remisol Consent for Treatmenton 05-16 Consent for Treatment [id number]#[id number]:[address] [facility] Physician Orderon 06-12-2023 Physician Order [id number]#[id number]:[address] [facility] TSHon 06-12-2023 TSH Qn 3.80 m[IU]/L Normal 0.34-5.60 [facility] Comment on above: Performed By: #### 2 187907 ####[facility] [address] [place] [address] BhCG Quanton 05-22-2023 HCG.beta subunit Qn 982522 m[IU]/mL High 1-3 [facility] Comment on above: Result Comment: GEST ATIONAL AGE HCG RANGE (mIU/mL) NON- <1-3 0.2-1 WEEKS 5-50 1-2 WEEKS 50-500 2-3 WEEKS 100-5,000 3-4 WEEKS 500-10,000 4-5 WEEKS 1,000-50,000 5-6 WEEKS 10,000-100,000 6-8 WEEKS 15,000-200,000 8-12 WEEKS 10,000-100,000 Performed By: #### 2 221353 ####[facility] [address] [place] [address] Discharge Instructionson Discharge Instructions [id number]#[id number]:[address] [facility] ED Clinical Summaryon 2022 ED Clinical Summary Normal [facility] ED Note-Physicianon 05-22-20 23 ED Note-Physician Normal [facility] Comment on above: Result Comment: Elec tronically Signed By: Gopi Rodriguez DO\.br\Date and Time Signed: 05/21/23 23:17 EDT ED Patient Education Noteon 05-22-2023 ED Patient Education Note Normal [facility] ED Patient Summaryon 023 ED Patient Summary Normal [facility] UA With Cult Reflexon 08-08- 2023 Bacteria LM Ql (Urine sed) TRACE Normal Trace [facility] Comment on above: Performed By: #### 1 [id number] ####[facility] [address] [place] [address] Bilirubin Ql (U) Negative Normal Negative [facility] Comment on above: Performed By: #### 1 1267392 ####[facility] [address] [place] [address] Clarity (U) CLEAR Normal Clear [facility] Comment on above: Performed By: #### 1 3182963 ####[facility] [address] [place] [address] Color (U) DARK YELLO Abnormal Yellow [facility] Comment on above: Performed By: #### 1 9481538 ####[address] [address] Epithelial cells.squamous LM .HPF (Urine sed) [#/Area] 0-2 Normal 0-2 [facility] Comment on above: Performed By: #### 1 0466033 ####[facility] [address] [place] [address] Glucose Test strip (U) [Mass/Vol] Negative Normal Negative [facility] Comment on above: Performed By: #### 1 6627460 ####[facility] [address] [place] [address] Hemoglobin Ql (U) TRACE Abnormal Negative [facility] Comment on above: Performed By: #### 1 8644820 ####[facility] [address] [place] [address] Ketones (U) [Mass/Vol] TRACE Abnormal Negative [facility] Comment on above: Performed By: #### 1 4872908 ####[address] [address] [place].plasma/[place].RBC ( Bld) [Mass ratio] 4-20 Normal 0-3 [facility] Comment on above: Performed By: #### 1 2420410 ####[facility] [address] [place] [address] [place] [address] Mucus Ql (Urine sed) 1+ Normal [facility] Comment on above: Performed By: #### 1 3893174 ####[address] [address] Nitrite Ql (U) Negative Normal Negative [facility] Comment on above: Performed By: #### 1 5887026 ####[address] [address] pH (U) 6.0 [pH] Invalid Interpretation Code 5.0-9.0 [facility] Comment on above: Performed By: #### 1 5330150 ####[address] [address] Protein (U) [Mass/Vol] 2+ Abnormal Negative [facility] Comment on above: Performed By: #### 1 1004281 ####[address] [address] Specific gravity (U) [Rel density] >=1.030 Invalid Interpretation Code 1.005-1.030 [facility] Comment on above: Performed By: #### 1 6381277 ####[address] [address] Type of Urine collection method Clean Catch Normal [facility] Comment on above: Performed By: #### 1 8199238 ####[address] [address] Urobilinogen Qn (U) 0.2 {Rola'U}/dL Normal 0.0-1.0 [facility] Comment on above: Performed By: #### 1 3042800 ####[address] [address] WBC Auto Ql (U) Negative Normal Negative [facility] Comment on above: Performed By: #### 1 7445532 ####[address] [address] WBC LM.HPF (Urine sed) [#/Area] 0-5 Normal 0-5 [facility] Comment on above: Performed By: #### 1 0232793 ####[facility] [address] [place] [address] US 1st Trimesteron 05-22-2023 US 1st Trimester Normal [facility] Auto Diffon 05-21-2023 Basophils/100 WBC (Bld) 1.0 % Normal 0.0-2.0 F [facility] Comment on above: Order Comment: Order Added by Discern Expert. Performed By: #### 2 623113, 9260413, 57307849, 88700417, 2173154, 6773317, 7424855 ####[facility] [address] [place] [address] Basophils/Leukocytes Auto (B ld) [Pure # fraction] 0.1 E9/L Normal 0.0-0.2 [facility] Comment on above: Order Comment: Order Added by Discern Expert. Performed By: #### 2 345737, 0340914, 59958334, 67925066, 0021388, 9816257, 7674846 ####[facility] [address] [place] [address] Eosinophils/100 WBC (Bld) 1.5 % Normal 0.0-8.0 [facility] Comment on above: Order Comment: Order Added by Discern Expert. Performed By: #### 2 232084, 0430502, 40490334, 53942596, 5375284, 4849196, 8966913 ####[facility] [address] [place] [address] Eosinophils/Leukocytes Auto (Bld) [Pure # fraction] 0.1 E9/L Normal 0.0-0.5 [facility] Comment on above: Order Comment: Order Added by Discern Expert. Performed By: #### 2 652675, 4302723, 83713602, 93778796, 1204133, 6479535, 5835909 ####[facility] [address] [place] [address] Lymphocytes/100 WBC (Bld) 36.6 % Normal 14.0-50.0 [facility] Comment on above: Order Comment: Order Added by Gisselle Expert. Performed By: #### 2 879862, 9915594, 58744222, 12694926, 9841809, 4878948, 7072040 ####[facility] [address] [place] [address] Lymphocytes/Leukocytes Auto (Bld) [Pure # fraction] 2.5 E9/L Normal 1.0-4.0 [facility] Comment on above: Order Comment: Order Added by Discern Expert. Performed By: #### 2 157769, 2157253, 58567239, 61934427, 0141943, 2387322, 0106854 ####[facility] [address] [place] [address] Monocytes/100 WBC (Bld) 8.2 % Normal 4.0-14.0 [facility] Comment on above: Order Comment: Order Added by Gisselle Expert. Performed By: #### 2 141618, 9963221, 01937215, 56992483, 1310175, 2996303, 2069499 ####[facility] [address] [place] [address] Monocytes/Leukocytes Auto (B ld) [Pure # fraction] 0.6 E9/L Normal 0.2-1.0 [facility] Comment on above: Order Comment: Order Added by Gisselle Expert. Performed By: #### 2 391181, 8265692, 36405121, 85660551, 1683953, 9146504, 4110356 ####[facility] [address] [place] [address] Neutrophils/100 WBC (Bld) 52.7 % Normal 36.0-75.0 [facility] Comment on above: Order Comment: Order Added by Gisselle Expert. Performed By: #### 2 907841, 1968363, 74527461, 75753879, 8497457, 2886406, 0695596 ####[facility] [address] [place] [address] Neutrophils/Leukocytes Auto (Bld) [Pure # fraction] 3.6 E9/L Normal 2.0-7.5 [facility] Comment on above: Order Comment: Order Added by Discern Expert. Performed By: #### 2 572797, 9596467, 85874307, 97449517, 0444649, 1657515, 7703498 ####[facility] [address] [place] [address] BMPon 05-21-2023 Creatinine [Mass/Vol] 0.7 mg/dL Normal 0.5-1.3 [facility] Comment on above: Performed By: #### 2 915196, 0628938, 32322293, 52378048, 7132144, 5432667, 9481250 ####[facility] [address] [place] [address] Urea nitrogen [Mass/Vol] 8 mg/dL Normal 5-21 [facility] Comment on above: Performed By: #### 2 471882, 7473676, 98548004, 82710869, 8446424, 9930740, 5373075 ####[facility] [address] [place] [address] Urea nitrogen/Creatinine [Ma ss ratio] 11 No Units Normal 10-20 [facility] Comment on above: Performed By: #### 2 189519, 3656964, 06674091, 85397769, 6840057, 3412010, 7662754 ####[facility] [address] [place] [address] Anion gap [Moles/Vol] 12 mmol/L Normal 6-16 [facility] Comment on above: Performed By: #### 2 443171, 4194187, 73184167, 98435932, 3118739, 0944095, 5945258 ####[facility] [address] [place] [address] Calcium [Mass/Vol] 9.2 mg/dL Normal 8.9-11.1 [facility] Comment on above: Performed By: #### 2 777637, 8480296, 89149225, 08330427, 9639111, 4250203, 7601293 ####[facility] [address] [place] [address] Chloride [Moles/Vol] 104 mmol/L Normal 101-111 [facility] Comment on above: Performed By: #### 2 910211, 5870922, 07057529, 27207004, 4468766, 6852158, 9589102 ####[facility] [address] [place] [address] CO2 [Moles/Vol] 24 mmol/L Normal 21-31 [facility] Comment on above: Performed By: #### 2 424506, 7663792, 07062916, 41825960, 9606589, 8375970, 7975075 ####[facility] [address] [place] [address] Glucose [Mass/Vol] 87 mg/dL Normal 55-199 [facility] Comment on above: Result Comment: If t his glucose result represents a fasting glucose, interpretation should refer to the following reference range: 55-99 mg/dL Performed By: #### 2 326968, 9868853, 17843316, 77470719, 2864080, 2199740, 6789942 ####[facility] [address] [place] [address] Potassium [Moles/Vol] 3.2 mmol/L Low 3.5-5.3 [facility] Comment on above: Performed By: #### 2 597355, 5958433, 32272330, 15900081, 6695764, 7726667, 2934191 ####[facility] [address] [place] [address] Sodium [Moles/Vol] 137 mmol/L Normal 135-145 [facility] Comment on above: Performed By: #### 2 345125, 4400591, 83957940, 23612072, 2636740, 2483111, 1549409 ####[facility] [address] [place] [address] CBC w/ Auto Diffon 3 Erythrocyte distribution wid th (RBC) [Ratio] 13.3 % Normal 10.9-14.2 [facility] Comment on above: Performed By: #### 2 203665, 1352230, 78997849, 87094373, 3818876, 2943836, 7388757 ####[facility] [address] [place] [address] Hematocrit (Bld) [Volume fraction] 39.0 % Normal 34.0-46.0 [facility] Comment on above: Performed By: #### 2 735562, 7222867, 00311914, 97386959, 2150783, 2587785, 4276792 ####[facility] [address] [place] [address] Hemoglobin (Bld) [Mass/Vol] 13.3 g/dL Normal 12.0-16. 0 [facility] Comment on above: Performed By: #### 2 829310, 0232475, 54893136, 36192059, 8628928, 5869136, 2965016 ####[facility] [address] MCH (RBC) [Entitic mass] 30.3 pg Normal 27.0-34.0 [facility] Comment on above: Performed By: #### 2 277855, 5172979, 26350165, 72912088, 0551014, 4692736, 4739837 ####[facility] [address] [place] [address] MCHC (RBC) [Mass/Vol] 34.2 g/dL Normal 31.4-36.0 [facility] Comment on above: Performed By: #### 2 867070, 6657614, 78107106, 27369571, 3496339, 1008554, 4442827 ####[facility] [address] [place] [address] MCV (RBC) [Entitic vol] 88.7 fL Normal 80.0-100.0 F [facility] Comment on above: Performed By: #### 2 200033, 4119988, 26829422, 73969832, 4230767, 4143552, 2743258 ####[facility] [address] [place] [address] Platelet mean volume (Bld) [Entitic vol] 7.8 fL Normal 6.4-10.8 [facility] Comment on above: Performed By: #### 2 602528, 7430618, 55643593, 16930230, 7451113, 0849143, 1427864 ####[facility] [address] [place] [address] Platelets (Bld) [#/Vol] 225.0 E9/L Normal 150.0-500.0 [facility] Comment on above: Performed By: #### 2 254775, 6921398, 20598122, 39307085, 5405609, 7405113, 4600318 ####[address] [address] RBC (Bld) [#/Vol] 4.4 E12/L Normal 4.3-5.9 [facility] Comment on above: Performed By: #### 2 814409, 0665757, 77267125, 18766276, 6423511, 2193996, 6241748 ####[facility] [address] [place] [address] WBC corrected for nucl RBC A uto (Bld) [#/Vol] 6.8 E9/L Normal 4.0-11.0 [facility] Comment on above: Performed By: #### 2 203601, 7984437, 87314861, 76103660, 8375118, 2611101, 3440446 ####[address] [place] [address] CHEMISTRYOrdered By: SYSTEM SYSTEM on 05-21-2023 HCG.beta subunit Qn 036840 m[IU]/mL High 1 - 3 mIU/m L [facility] Remisol Albumin [Mass/Vol] 3.8 g/dL Normal 3.3 - 5.0 gm/dL [facility] Remisol Albumin/Globulin [Mass ratio] 1.2 {ratio} Normal 1.1 - 2.2 [facility] Remisol ALP [Catalytic activity/Vol] 42 [iU]/d Normal 21 - 98 Int._Unit/L [facility] Remisol ALT No additional P-5'-P [Catalytic activity/Vol] 13 [iU]/d Normal 6 - 46 Int._Unit/L [facility] Remisol Anion gap [Moles/Vol] 12 mmol/L Normal 6 - 16 mEq/L [facility] Remisol AST [Catalytic activity/Vol] 14 [iU]/d Normal 5 - 43 Int._Unit/L [facility] Remisol Bilirubin [Mass/Vol] 0.5 mg/dL Normal 0.0 - 1.1 mg/dL [facility] Remisol Bilirubin.direct [Mass/Vol] mg/dL Normal 0.1 - 0.4 mg/dL [facility] Remisol Bilirubin.indirect [Mass or moles/Vol] Unable to Calculate mg/dL Invalid Interpretation Code 0.1 - 0.9 mg/dL [facility] Remisol Calcium [Mass/Vol] 9.2 mg/dL Normal 8.9 - 11. 1 mg/dL [facility] Remisol Chloride [Moles/Vol] 104 mmol/L Normal 101 - 111 mmol/L [facility] Remisol CO2 [Moles/Vol] 24 mmol/L Normal 21 - 31 mmol/L [facility] Remisol Creatinine [Mass/Vol] 0.7 mg/dL Normal 0.5 - 1.3 mg/dL FT Remisol GFR/1.73 sq M.predicted among non-blacks MDRD (S/P/Bld) [Vol rate/Area] 120 mL/min/1.73 m2 Normal >=59mL/min/1.7 3 m2 FT Chem S Globulin (S) [Mass/Vol] 3.1 g/dL Normal 1.4 - 4.0 gm/dL [facility] Remisol Glucose [Mass/Vol] 87 mg/dL Normal 55 - 199 mg/dL FT Remisol Lipase [Catalytic activity/Vol] 31 U/L Normal 13 - 58 unit/L [facility] Remisol Potassium [Moles/Vol] 3.2 mmol/L Low 3.5 - 5.3 mmol/L [facility] Remisol Protein [Mass/Vol] 6.9 g/dL Normal 6.0 - 7.8 gm/dL [facility] Remisol Sodium [Moles/Vol] 137 mmol/L Normal 135 - 145 mmol/L [facility] Remisol Troponin I.cardiac [Mass/Vol] 2.50 pg/mL Low 10.10 - 27.10 pg/mL [facility] Remisol Urea nitrogen [Mass/Vol] 8 mg/dL Normal 5 - 21 mg/dL [facility] Remisol Urea nitrogen/Creatinine [Mass ratio] 11 mg/mg Normal 10 - 20 [facility] Remisol Consent for Treatmenton Consent for Treatment [id number]#1.00CD:[address] [facility] HEMATOLOGYOrdered By: SYSTEM SYSTEM on 05-21-2023 Basophils/100 WBC (Bld) 1.0 % Normal 0.0 - 2.0 % [facility] HemeAutoSS Basophils/Leukocytes Auto (B ld) [Pure # fraction] 0.1 E9/L Normal 0.0 - 0.2 E9/L [facility] HemeAutoSS Eosinophils/100 WBC (Bld) 1.5 % Normal 0.0 - 8.0 % [facility] HemeAutoSS Eosinophils/Leukocytes Auto (Bld) [Pure # fraction] 0.1 E9/L Normal 0.0 - 0.5 E9/L [facility] HemeAutoS S Lymphocytes/100 WBC (Bld) 36.6 % Normal 14.0 - 50. 0 % [facility] HemeAutoSS Lymphocytes/Leukocytes Auto (Bld) [Pure # fraction] 2.5 E9/L Normal 1.0 - 4.0 E9/L [facility] HemeAutoS S Monocytes/100 WBC (Bld) 8.2 % Normal 4.0 - 14.0 % [facility] HemeAutoSS Monocytes/Leukocytes Auto (B ld) [Pure # fraction] 0.6 E9/L Normal 0.2 - 1.0 E9/L [facility] HemeAutoSS Neutrophils/100 WBC (Bld) 52.7 % Normal 36.0 - 75. 0 % [facility] HemeAutoSS Neutrophils/Leukocytes Auto (Bld) [Pure # fraction] 3.6 E9/L Normal 2.0 - 7.5 E9/L [facility] HemeAutoS S HEMATOLOGYOrdered By: Tom Avelar on 05-21-2023 Erythrocyte distribution wid th (RBC) [Ratio] 13.3 % Normal 10.9 - 14.2 % [facility] HemeAutoSS Hematocrit (Bld) [Volume fraction] 39.0 % Normal 34.0 - 46.0 % [facility] HemeAutoSS Hemoglobin (Bld) [Mass/Vol] 13.3 g/dL Normal 12.0 - 1 6.0 gm/dL [facility] HemeAutoSS MCH (RBC) [Entitic mass] 30.3 pg Normal 27.0 - 34.0 pg [facility] HemeAutoSS MCHC (RBC) [Mass/Vol] 34.2 g/dL Normal 31.4 - 36.0 gm /dL [facility] HemeAutoSS MCV (RBC) [Entitic vol] 88.7 fL Normal 80.0 - 100.0 fL [facility] HemeAutoSS Platelet mean volume (Bld) [Entitic vol] 7.8 fL Normal 6.4 - 10.8 fL [facility] HemeAutoSS Platelets (Bld) [#/Vol] 225.0 E9/L Normal 150.0 - 500. 0 E9/L [facility] HemeAutoSS RBC (Bld) [#/Vol] 4.4 E12/L Normal 4.3 - 5.9 E12/L [facility] HemeAutoSS WBC corrected for nucl RBC A uto (Bld) [#/Vol] 6.8 E9/L Normal 4.0 - 11.0 E9/L [facility] HemeAutoSS Hep Func Panelon 05-21-2023 Bilirubin.indirect [Mass or moles/Vol] UTC Abnormal 0.1-0.9 [facility] Comment on above: Result Comment: Resu lt verified by Discern Rule. Performed result UTC (Unable to Calculate) was sent as an Alpha code due the inability to calculate a valid numeric value. Performed By: #### 2 472243, 0564655, 65935502, 31555988, 7097040, 8072339, 3386496 ####[facility] [address] [place] [address] Albumin [Mass/Vol] 3.8 g/dL Normal 3.3-5.0 [facility] Comment on above: Performed By: #### 2 261082, 1540591, 21268254, 93329971, 5122144, 3947681, 5740782 ####[address] [place] [address] Albumin/Globulin (S) [Mass conc ratio] 1.2 Normal 1.1-2.2 [facility] Comment on above: Performed By: #### 2 432253, 5359328, 20274384, 90970054, 3123026, 9442301, 2692846 ####[address] [place] [address] ALP [Catalytic activity/Vol] 42 Int._Unit/L Normal 21- 98 [facility] Comment on above: Performed By: #### 2 457885, 7957897, 76170688, 46273560, 2854125, 1479824, 0587699 ####[address] [address] ALT No additional P-5'-P [Catalytic activity/Vol] 13 Int._Unit/L Normal 6-46 [facility] Comment on above: Performed By: #### 2 303139, 1381204, 47091302, 71588238, 3898018, 3419999, 5125325 ####[address] [address] AST [Catalytic activity/Vol] 14 Int._Unit/L Normal 5-[address] [facility] Comment on above: Performed By: #### 2 572433, 2587032, 27718184, 36620259, 1047268, 6229208, 1796258 ####[address] [place] [address] Bilirubin [Mass/Vol] 0.5 mg/dL Normal 0.0-1.1 [facility] Comment on above: Performed By: #### 2 688860, 5111008, 71748054, 14523169, 4959681, 1004767, 9335917 ####[address] [place] [address] Globulin (S) [Mass/Vol] 3.1 g/dL Normal 1.4-4.0 F [facility] Comment on above: Performed By: #### 2 335770, 1375559, 70309786, 33751988, 3760447, 4041138, 6611315 ####[facility] [address] [place] [address] Protein [Mass/Vol] 6.9 g/dL Normal 6.0-7.8 [facility] Comment on above: Performed By: #### 2 926909, 3942212, 27644312, 76667881, 1757210, 9858966, 8835261 ####[facility] [address] [place] [address] Bilirubin.direct [Mass/Vol] mg/dL Normal 0.1-0.4 [facility] Comment on above: Performed By: #### 2 151515, 7575248, 79100973, 35708052, 7623797, 8153858, 4257698 ####[facility] [address] [place] [address] Lipase Levelon 05-21-2023 Lipase [Catalytic activity/Vol] 31 U/L Normal 13-[address] [facility] Comment on above: Performed By: #### 2 925678, 6961895, 16704779, 13232366, 0611095, 8534532, 5339848 ####[facility] [address] [place] [address] Troponin 0 Hr.on 05-21-2023 Troponin I.cardiac [Mass/Vol] 2.50 pg/mL Low 10.10- 27.10 [facility] Comment on above: Result Comment: The 95% CI (Confidence Interval) PPV (Positive Predictive Value) for myocardial infarction in females is 38 pg/mL, in males 51 pg/mL. The results should be used in conjunction with clinical conditions of myocardial infarction.(Access High Sensitivity Troponin I Instructions For Use, Ziggy [place], May 2018) Performed By: #### 2 798138, 4456060, 80912701, 96348751, 0439349, 0350662, 1154341 ####[place] [address] URINALYSISOrdered By: Jose Miguel nelson on 05-21-2023 Bacteria LM Ql (Urine sed) Trace /HPF Normal Trace/HPF [facility] UA Auto SS Bilirubin Ql (U) Negative (05/21/23 10:17 PM) Normal Negative [facility] UA Auto SS Clarity (U) Clear (05/21/23 10:17 PM) Normal Clear [facility] UA Auto SS Color (U) Dark Yellow *ABN* (05/21/23 10:17 PM) Invalid Interpretation Code Yellow [facility] UA Auto SS Epithelial cells.squamous LM.HPF (Urine sed) [#/Area] 0-2 /HPF Normal 0-2/HPF [facility] UA Auto SS Glucose Test strip (U) [Mass/Vol] Negative (05/21/23 10:17 PM) Normal Negative [facility] UA Auto SS Hemoglobin Ql (U) Trace *ABN* (05/21/23 10:17 PM) Invalid Interpretation Code Negative [facility] UA Auto SS Ketones (U) [Mass/Vol] Trace *ABN* (05/21/23 10:17 PM) Invalid Interpretation Code Negative [facility] UA Auto SS [place].plasma/Lithi um.RBC (Bld) [Mass ratio] 4-20 /HPF Normal 0-3/HPF [facility] UA Auto SS Mucus Ql (Urine sed) 1+ (05/21/23 10:17 PM) Normal [facility] UA Auto SS Nitrite Ql (U) Negative (05/21/23 10:17 PM) Normal Negative [facility] UA Auto SS pH (U) 6.0 *NA* (05/21/23 10:17 PM) Invalid Interpretation Code 5.0 - 9.0 [facility] UA Auto SS Protein (U) [Mass/Vol] 2+ *ABN* (05/21/23 10:17 PM) Invalid Interpretation Code Negative [facility] UA Auto SS Specific gravity (U) [Rel density] >=1.030 *NA* (05/21/23 10:17 PM) Invalid Interpretation Code 1.005 - 1.030 [facility] UA Auto SS UA Spec Desc Clean Catch (05/21/23 10:17 PM) Normal [facility] UA Auto SS Urobilinogen Qn (U) 0.6122315 {Rola'U}/dL Normal 0.0 - 1.0 EU/dL [facility] UA Auto SS WBC Auto Ql (U) Negative (05/21/23 10:17 PM) Normal Negative [facility] UA Auto SS WBC LM.HPF (Urine sed) [#/Area] 0-5 /HPF Normal 0-5/HPF [facility] UA Auto SS eGFRon 05-21-2023 GFR/1.73 sq M.predicted jean g non-blacks MDRD (S/P/Bld) [Vol rate/Area] 120 mL/min/1.73 m2 Normal >=59 [facility] Comment on above: Order Comment: Order added by Discern Expert. Result Comment: Coil Inspector lucy kidney disease could be indicated at eGFR's of less than 60 mL/min/1.73m2. Kidney failure is indicated at less than 15 mL/min/1.73m2. Performed By: #### 2 663131, 8424539, 76756346, 18577616, 4031889, 6563004, 0926207 ####[facility] [address] [place] [address] PAP [id number] 05-03-2023 C. trachomatis rRNA MAHAD+probe Ql (Cvx) Negative Invalid Interpretation Code Negative [facility] Comment on above: Performed By: #### 3 [id number] ####[facility] [address] [place] [address] Cytology report Cyto stain Doc (Cvx/Vag) Note Invalid Interpretation Code [facility] Comment on above: Result Comment: TESTS RESULT FLAG UNITS REF RANGE LAB Clinician Provided Cytology InformationSource.............EndocervixNo. of containers..01 ThinPrep VialDIAGNOSIS: 01NEGATIVE FOR INTRAEPITHELIAL LESION OR MALIGNANCY.Specimen adequacy: 01Satisfactory for evaluation. Endocervical and/or squamous metaplasticcells (endocervical component) are present.Performed by: Eliana Shea [employer] (ASCP). 01Note: Note 01The Pap smear is a screening test designed to aid in the detection ofpremalignant and malignant conditions of the uterine cervix. It is not adiagnostic procedure and should not be used as the sole means of detectingcervical cancer. Both false-positive and false-negative reports do occur.Test Methodology: Note 01This liquid based ThinPrep(R) pap test was screened with theuse of an image guided system.. 01The HPV DNA reflex criteria were not met with this specimen resulttherefore, no HPV testing was performed. FLAG LEGEND:L-Low Normal,H-High Normal,LL-Alert Low,HH-Alert High<-Panic Low,>-Panic High,A-Abnormal,AA-Critical Abnormal Performed at:[address] [employer] [place] [address]Nehwkp French Walton MD, Performed By: #### 3 [id number] ####[address] [place] [address] N. gonorrhoeae rRNA MAHAD+probe Ql (Cvx) Negative Invalid Interpretation Code Negative [facility] Comment on above: Result Comment: Perf ormed at: WB [employer] [address] [id number] MD Anton HinsonPerformed at: =G LabSrd IndustriesTvxssyijza[address] [id number] MD Anton Hinson Performed By: #### 3 [id number] ####[address] [place] [address] C Urineon 05-02-2023 Bacteria identified Cx Nom (U) Normal [facility] Comment on above: Performed By: #### 2 306668 ####[facility] [address] [place] [address] HIV Screen 4th Generation wR fxon 05-01-2023 HIV 1+2 Ab+HIV1 p24 Ag IA Ql Non-Reactive Invalid Interpretation Code Non Reactive [facility] Comment on above: Result Comment: HIV NegativeHIV-1/HIV-2 antibodies and HIV-1 p24 antigen were NOT detected.There is no laboratory evidence of HIV infection.Performed at: [employer] [id number] PhD Caroline [place] Performed By: #### 1 [id number], 34213163, 303457921, 1576419, 2004765 ####[facility] [address] [place] [address] Hep Bs Agon 05-01-2023 HBV surface Ag IA Ql Negative Invalid Interpretation Cod e Negative [facility] Comment on above: Result Comment: Perf ormed at: [employer] [address] [place], [place] [id number] PhD [place] Performed By: #### 1 69207940, 61119842, 320864214, 8634804, 1983876 ####[address] [place] [address] RPR with Conf Rfxon 05-01-20 Reagin Ab RPR Ql (S) Non-Reactive Invalid Interpretation Code Non Reactive [facility] Comment on above: Result Comment: Perf ormed at: [address] [id number] PhD [place] Performed By: #### 1 [id number], 04103821, 937799554, 6300634, 9421151 ####[facility] [address] [place] [address] Rubella IgGon 05-01-2023 Rubella virus IgG Qn (S) [IU]/mL Low Immune >0.[address] [facility] Comment on above: Result Comment: Non- immune <0.90Equivocal 0.90 - 0.99Immune >0.99Performed at: [facility] [address] [place], [place] [id number] PhD Caroline [place] Performed By: #### 1 25288472, 91594797, 356877686, 2298881, 3025519 ####[address] [address] ABO/Rhon 04-30-2023 ABO/Rh Positive Invalid Interpretation Code [facility] Comment on above: Performed By: #### 2 864748, 45302438 ####[address] [address] ABSCon 04-30-2023 ABSC Gel Interp Negative Normal [facility] Comment on above: Performed By: #### 2 543684, 46990440 ####[address] [address] BLOOD BANKOrdered By: Diamond Junior on 04-30-2023 ABO/Rh Interp Positive Invalid Interpretation Code [facility] BB Subsection ABSC Gel Interp Negative (04/30/23 9:30 AM) Normal [facility] BB Subsection BhCG Quanton 04-30-2023 [place] [address] m[IU]/mL High 1-3 F [facility] Comment on above: Result Comment: GEST ATIONAL AGE HCG RANGE (mIU/mL) NON- <1-3 0.2-1 WEEKS 5-50 1-2 WEEKS 50-500 2-3 WEEKS 100-5,000 3-4 WEEKS 500-10,000 4-5 WEEKS 1,000-50,000 5-6 WEEKS 10,000-100,000 6-8 WEEKS 15,000-200,000 8-12 WEEKS 10,000-100,000 Performed By: #### 2 305950 ####[address] [place] [address] CBC w/Indiceson 04-30-2023 Erythrocyte distribution wid th (RBC) [Ratio] 13.7 % Normal 10.9-14.2 [facility] Comment on above: Performed By: #### 1 30322958, 60059785, 768761792, 1857692, 8630575 ####[facility] [address] [place] [address] Hematocrit (Bld) [Volume fraction] 40.7 % Normal 34.0-46.0 [facility] Comment on above: Performed By: #### 1 50759328, 32139309, 897038171, 4791355, 5349491 ####[address] [place] [address] Hemoglobin (Bld) [Mass/Vol] 13.8 g/dL Normal 12.0-16. 0 [facility] Comment on above: Performed By: #### 1 23825788, 82850372, 313592440, 2656891, 8112251 ####[address] [address] MCH (RBC) [Entitic mass] 30.5 pg Normal 27.0-34.0 [facility] Comment on above: Performed By: #### 1 45866598, 95194125, 865236420, 8387445, 2310531 ####[address] [place] [address] MCHC (RBC) [Mass/Vol] 33.9 g/dL Normal 31.4-36.0 [facility] Comment on above: Performed By: #### 1 39088541, 12267197, 547335401, 8685402, 3097225 ####[address] [place] [address] MCV (RBC) [Entitic vol] 89.9 fL Normal 80.0-100.0 F [facility] Comment on above: Performed By: #### 1 55296298, 48113716, 122943275, 8524051, 1918867 ####[address] [place] [address] Platelet mean volume (Bld) [Entitic vol] 8.2 fL Normal 6.4-10.8 [facility] Comment on above: Performed By: #### 1 67393851, 51120974, 777911035, 2538969, 5481059 ####[facility] [address] [place] [address] Platelets (Bld) [#/Vol] 279.0 E9/L Normal 150.0-500.0 [facility] Comment on above: Performed By: #### 1 20482797, 98264578, 051097375, 9452869, 9760215 ####[facility] [address] [place] [address] RBC (Bld) [#/Vol] 4.5 E12/L Normal 4.3-5.9 [facility] Comment on above: Performed By: #### 1 77593479, 71111422, 657941522, 2617944, 4354401 ####[facility] [address] [place] [address] WBC corrected for nucl RBC A uto (Bld) [#/Vol] 5.8 E9/L Normal 4.0-11.0 [facility] Comment on above: Performed By: #### 1 94390110, 95599303, 270328294, 7842014, 7873257 ####[facility] [address] [place] [address] CHEMISTRYOrdered By: SYSTEM SYSTEM on 04-30-2023 [place] [address] m[IU]/mL High 1 - 3 mIU/mL [facility] Remisol Consent for Treatmenton 04-14 Consent for Treatment [id number]#1.00CD:[address] [facility] HEMATOLOGYOrdered By: Temi Romero on 04-30-2023 Erythrocyte distribution wid th (RBC) [Ratio] 13.7 % Normal 10.9 - 14.2 % [facility] HemeAutoSS Hematocrit (Bld) [Volume fraction] 40.7 % Normal 34.0 - 46.0 % [facility] HemeAutoSS Hemoglobin (Bld) [Mass/Vol] 13.8 g/dL Normal 12.0 - 1 6.0 gm/dL [facility] HemeAutoSS MCH (RBC) [Entitic mass] 30.5 pg Normal 27.0 - 34.0 pg FT HemeAutoSS MCHC (RBC) [Mass/Vol] 33.9 g/dL Normal 31.4 - 36.0 gm /dL [facility] HemeAutoSS MCV (RBC) [Entitic vol] 89.9 fL Normal 80.0 - 100.0 fL [facility] HemeAutoSS Platelet mean volume (Bld) [Entitic vol] 8.2 fL Normal 6.4 - 10.8 fL [facility] HemeAutoSS Platelets (Bld) [#/Vol] 279.0 E9/L Normal 150.0 - 500. 0 E9/L [facility] HemeAutoSS RBC (Bld) [#/Vol] 4.5 E12/L Normal 4.3 - 5.9 E12/L [facility] HemeAutoSS WBC corrected for nucl RBC A uto (Bld) [#/Vol] 5.8 E9/L Normal 4.0 - 11.0 E9/L [facility] HemeAutoSS PAP [id number] 04-30-2023 Collection Technique BRUSH-SPATULA Normal F [facility] Comment on above: Performed By: #### 3 [id number] ####[facility] [address] [place] [address] Gynecological Body Site ENDOCERVIX Normal F [facility] Comment on above: Performed By: #### 3 135104776 ####[facility] [address] [place] [address] Physician Orderon 04-30-2023 Physician Order [id number]#1.00CD:[address] [facility] Physician Order [id number]#1.00CD:[address] [facility] BhCG Quanton 04-26-2023 [place] [address] m[IU]/mL High 1-3 F [facility] Comment on above: Result Comment: GEST ATIONAL AGE HCG RANGE (mIU/mL) NON- <1-3 0.2-1 WEEKS 5-50 1-2 WEEKS 50-500 2-3 WEEKS 100-5,000 3-4 WEEKS 500-10,000 4-5 WEEKS 1,000-50,000 5-6 WEEKS 10,000-100,000 6-8 WEEKS 15,000-200,000 8-12 WEEKS 10,000-100,000 Performed By: #### 2 053924 ####[facility] [address] [place] [address] CHEMISTRYOrdered By: SYSTEM SYSTEM on 04-26-2023 [place] [address] m[IU]/mL High 1 - 3 mIU/mL [facility] Remisol Consent for Treatmenton 04-14 Consent for Treatment [id number]#1.00CD:[address] [facility] Discharge Instructionson Discharge Instructions [id number]#1.00CD:[address] [facility] ED Clinical Summaryon 2022 ED Clinical Summary Normal [facility] ED Note-Physicianon 04-26-20 ED Note-Physician Normal [facility] Comment on above: Result Comment: Elec tronically Signed By: Jos Ugalde PA-C\.br\Date and Time Signed: 04/26/23 10:59 EDT\.br\Electronically Co-Signed By: Laura Noel M.D.\.br\Date and Time Co-Signed: 04/26/23 11:01 EDT ED Patient Education Noteon 04-26-2023 ED Patient Education Note Normal [facility] ED Patient Summaryon 023 ED Patient Summary Normal [facility] UA With Cult Reflexon 2022 Bilirubin Ql (U) Negative Normal Negative [facility] Comment on above: Performed By: #### 1 4495245 ####[facility] [address] [place] [address] Clarity (U) CLEAR Normal Clear [facility] Comment on above: Performed By: #### 1 5241305 ####[facility] [address] [place] [address] Color (U) YELLOW Normal Yellow [facility] Comment on above: Performed By: #### 1 4926599 ####[facility] [address] [place] [address] Crystals LM Ql (Urine sed) Present Normal [facility] Comment on above: Performed By: #### 1 7485187 ####[facility] [address] [place] [address] Epithelial cells.squamous LM .HPF (Urine sed) [#/Area] 0-2 Normal 0-2 [facility] Comment on above: Performed By: #### 1 8272396 ####[facility] [address] [place] [address] Glucose Test strip (U) [Mass/Vol] Negative Normal Negative [facility] Comment on above: Performed By: #### 1 2137890 ####[facility] [address] [place] [address] Hemoglobin Ql (U) Negative Normal Negative [facility] Comment on above: Performed By: #### 1 7683620 ####[facility] [address] [place] [address] Ketones (U) [Mass/Vol] Negative Normal Negative [facility] Comment on above: Performed By: #### 1 5272247 ####[facility] [address] [place] [address] [place].plasma/[place].RBC (Bld) [Mass ratio] 0-3 N ormal 0-3 [facility] Comment on above: Performed By: #### 1 4985160 ####[facility] [address] [place] [address] Mucus Ql (Urine sed) 2+ Normal [facility] Comment on above: Performed By: #### 1 4449286 ####[address] [address] Nitrite Ql (U) Negative Normal Negative [facility] Comment on above: Performed By: #### 1 0438718 ####[address] [address] pH (U) 8.5 [pH] Invalid Interpretation Code 5.0-9.0 [facility] Comment on above: Performed By: #### 1 4641542 ####[address] [address] Protein (U) [Mass/Vol] Negative Normal Negative [facility] Comment on above: Performed By: #### 1 2570163 ####[address] [address] Specific gravity (U) [Rel density] 1.015 Invalid Interpretation Code 1.005-1.030 [facility] Comment on above: Performed By: #### 1 4222422 ####[address] [address] Type of Urine collection method Clean Catch Normal [facility] Comment on above: Performed By: #### 1 5618237 ####[address] [address] Urobilinogen Qn (U) 1.0 {Rola'U}/dL Normal 0.0-1.0 [facility] Comment on above: Performed By: #### 1 6867312 ####[address] [address] WBC Auto Ql (U) Negative Normal Negative [facility] Comment on above: Performed By: #### 1 7020133 ####[address] [address] WBC LM.HPF (Urine sed) [#/Area] 0-5 Normal 0-5 [facility] Comment on above: Performed By: #### 1 0825269 ####[address] [address] URINALYSISOrdered By: An Lassiter on 04-26-2023 Bilirubin Ql (U) Negative (04/26/23 9:15 AM) Normal Negative [facility] UA Auto SS Clarity (U) Clear (04/26/23 9:15 AM) Normal Clear [facility] UA Auto SS Color (U) Yellow (04/26/23 9:15 AM) Normal Yellow [facility] UA Auto SS Crystals LM Ql (Urine sed) Present (04/26/23 9:15 AM) Normal [facility] UA Auto SS Epithelial cells.squamous LM.HPF (Urine sed) [#/Area] 0-2 /HPF Normal 0-2/HPF [facility] UA Auto SS Glucose Test strip (U) [Mass/Vol] Negative (04/26/23 9:15 AM) Normal Negative [facility] UA Auto SS Hemoglobin Ql (U) Negative (04/26/23 9:15 AM) Normal Negative [facility] UA Auto SS Ketones (U) [Mass/Vol] Negative (04/26/23 9:15 AM) Normal Negative [facility] UA Auto SS [place].plasma/Lithi um.RBC (Bld) [Mass ratio] 0-3 /HPF Normal 0-3/HPF [facility] UA Auto SS Mucus Ql (Urine sed) 2+ (04/26/23 9:15 AM) Normal [facility] UA Auto SS Nitrite Ql (U) Negative (04/26/23 9:15 AM) Normal Negative [facility] UA Auto SS pH (U) 8.5 *NA* (04/26/23 9:15 AM) Invalid Interpretation Code 5.0 - 9.0 [facility] UA Auto SS Protein (U) [Mass/Vol] Negative (04/26/23 9:15 AM) Normal Negative [facility] UA Auto SS Specific gravity (U) [Rel density] 1.015 *NA* (04/26/23 9:15 AM) Invalid Interpretation Code 1.005 - 1.030 [facility] UA Auto SS UA Spec Desc Clean Catch (04/26/23 9:15 AM) Normal [facility] UA Auto SS Urobilinogen Qn (U) 1.8112376 {Rola'U}/dL Normal 0.0 - 1.0 EU/dL [facility] UA Auto SS WBC Auto Ql (U) Negative (04/26/23 9:15 AM) Normal Negative [facility] UA Auto SS WBC LM.HPF (Urine sed) [#/Area] 0-5 /HPF Normal 0-5/HPF [facility] UA Auto SS US 1st Trimesteron 04-26-2023 US 1st Trimester Normal [facility] US Transvaginalon 04-26-[address] [facility] Coding Summary.on 02-02-2023 Coding Summary. Normal [facility] Auto Diffon 01-31-2023 Basophils/100 WBC (Bld) 0.3 % Normal 0.0-2.0 F [facility] Comment on above: Order Comment: Order Added by Discern Expert. Performed By: #### 2 040690, 3287377, 33625403, 8465266 ####[facility] [address] [place] [address] Basophils/Leukocytes Auto (B ld) [Pure # fraction] 0.0 E9/L Normal 0.0-0.2 [facility] Comment on above: Order Comment: Order Added by Discern Expert. Performed By: #### 2 911473, 2494915, 29504154, 5377267 ####[facility] [address] [place] [address] Eosinophils/100 WBC (Bld) 2.8 % Normal 0.0-8.0 [facility] Comment on above: Order Comment: Order Added by Discern Expert. Performed By: #### 2 702212, 4569312, 51068617, 5269246 ####[facility] [address] [place] [address] Eosinophils/Leukocytes Auto (Bld) [Pure # fraction] 0.1 E9/L Normal 0.0-0.5 [facility] Comment on above: Order Comment: Order Added by Discern Expert. Performed By: #### 2 229067, 3483026, 39006754, 3765279 ####[facility] [address] [place] [address] Lymphocytes/100 WBC (Bld) 30.0 % Normal 14.0-50.0 [facility] Comment on above: Order Comment: Order Added by Discern Expert. Performed By: #### 2 590129, 8663193, 15531186, 3255522 ####[address] [place] [address] Lymphocytes/Leukocytes Auto (Bld) [Pure # fraction] 1.5 E9/L Normal 1.0-4.0 [facility] Comment on above: Order Comment: Order Added by Discern Expert. Performed By: #### 2 655599, 2390898, 10501252, 3857175 ####[address] [place] [address] Monocytes/100 WBC (Bld) 7.0 % Normal 4.0-14.0 [facility] Comment on above: Order Comment: Order Added by Discern Expert. Performed By: #### 2 293502, 0671420, 74531196, 3831255 ####[address] [address] Monocytes/Leukocytes Auto (B ld) [Pure # fraction] 0.4 E9/L Normal 0.2-1.0 [facility] Comment on above: Order Comment: Order Added by Discern Expert. Performed By: #### 2 301812, 0130188, 16822712, 9442540 ####[address] [address] Neutrophils/100 WBC (Bld) 59.9 % Normal 36.0-75.0 [facility] Comment on above: Order Comment: Order Added by Discern Expert. Performed By: #### 2 823960, 8951550, 25440465, 8521075 ####[address] [place] [address] Neutrophils/Leukocytes Auto (Bld) [Pure # fraction] 3.1 E9/L Normal 2.0-7.5 [facility] Comment on above: Order Comment: Order Added by Discern Expert. Performed By: #### 2 155194, 1703585, 94572020, 7384538 ####[address] [address] B hCG Qualon 01-31-2023 Beta hCG Ql Negative Normal [facility] Comment on above: Performed By: #### 2 5083280, 77806659 ####[facility] [address] [place] [address] BMPon 01-31-2023 Creatinine [Mass/Vol] 0.8 mg/dL Normal 0.5-1.3 [facility] Comment on above: Performed By: #### 2 716511, 1314997, 78474233, 3852794 ####[facility] [address] [place] [address] Urea nitrogen [Mass/Vol] 9 mg/dL Normal 5-21 [facility] Comment on above: Performed By: #### 2 138725, 8957274, 62830784, 8564356 ####[facility] [address] [place] [address] Urea nitrogen/Creatinine [Ma ss ratio] 11 No Units Normal 10-20 [facility] Comment on above: Performed By: #### 2 200909, 1398997, 97798409, 3809321 ####[facility] [address] [place] [address] Anion gap [Moles/Vol] 12 mmol/L Normal 6-16 [facility] Comment on above: Performed By: #### 2 674862, 6820418, 44481607, 2795189 ####[facility] [address] [place] [address] Calcium [Mass/Vol] 9.1 mg/dL Normal 8.9-11.1 [facility] Comment on above: Performed By: #### 2 551638, 2983754, 93824352, 2378092 ####[facility] [address] [place] [address] Chloride [Moles/Vol] 104 mmol/L Normal 101-111 [facility] Comment on above: Performed By: #### 2 501602, 3150537, 71514970, 0773891 ####[facility] [address] [place] [address] CO2 [Moles/Vol] 23 mmol/L Normal 21-31 [facility] Comment on above: Performed By: #### 2 492792, 1836945, 94947788, 2594568 ####[facility] [address] [place] [address] Glucose [Mass/Vol] 84 mg/dL Normal 55-199 [facility] Comment on above: Result Comment: If t his glucose result represents a fasting glucose, interpretation should refer to the following reference range: 55-99 mg/dL Performed By: #### 2 016305, 3537854, 36295328, 5373157 ####[facility] [address] [place] [address] Potassium [Moles/Vol] 3.5 mmol/L Normal 3.5-5.3 [facility] Comment on above: Performed By: #### 2 549472, 9538601, 18848367, 6571456 ####[facility] [address] [place] [address] Sodium [Moles/Vol] 135 mmol/L Normal 135-145 [facility] Comment on above: Performed By: #### 2 628349, 1711509, 60856526, 0647314 ####[facility] [address] [place] [address] CBC w/ Auto Diffon 3 Erythrocyte distribution wid th (RBC) [Ratio] 12.9 % Normal 10.9-14.2 [facility] Comment on above: Performed By: #### 2 714180, 8100721, 76772821, 6713341 ####[facility] [address] [place] [address] Hematocrit (Bld) [Volume fraction] 46.4 % High 3 4.0-46.0 [facility] Comment on above: Performed By: #### 2 474788, 2958947, 72336564, 8316898 ####[facility] [address] [place] [address] Hemoglobin (Bld) [Mass/Vol] 15.0 g/dL Normal 12.0-16. 0 [facility] Comment on above: Performed By: #### 2 087086, 6358456, 91118713, 6367699 ####[facility] [address] [place] [address] MCH (RBC) [Entitic mass] 28.6 pg Normal 27.0-34.0 [facility] Comment on above: Performed By: #### 2 650147, 9315514, 19755626, 1735921 ####[facility] [address] [place] [address] MCHC (RBC) [Mass/Vol] 32.3 g/dL Normal 31.4-36.0 [facility] Comment on above: Performed By: #### 2 287788, 2565068, 85266492, 8826240 ####[facility] [address] [place] [address] MCV (RBC) [Entitic vol] 88.5 fL Normal 80.0-100.0 F [facility] Comment on above: Performed By: #### 2 942209, 4388584, 92471809, 5263334 ####[address] [place] [address] Platelet mean volume (Bld) [Entitic vol] 7.9 fL Normal 6.4-10.8 [facility] Comment on above: Performed By: #### 2 592502, 2614076, 35034558, 7126300 ####[address] [place] [address] Platelets (Bld) [#/Vol] 300.0 E9/L Normal 150.0-500.0 [facility] Comment on above: Performed By: #### 2 518234, 8822274, 66944838, 4353874 ####[facility] [address] [place] [address] RBC (Bld) [#/Vol] 5.2 E12/L Normal 4.3-5.9 [facility] Comment on above: Performed By: #### 2 799087, 9093997, 63126699, 3807098 ####[facility] [address] [place] [address] WBC corrected for nucl RBC A uto (Bld) [#/Vol] 5.1 E9/L Normal 4.0-11.0 [facility] Comment on above: Performed By: #### 2 870480, 7730394, 70516446, 0203426 ####[facility] [address] [place] [address] CHEMISTRYOrdered By: SYSTEM SYSTEM on 01-31-2023 Anion gap [Moles/Vol] 12 mmol/L Normal 6 - 16 mEq/L [facility] Remisol Calcium [Mass/Vol] 9.1 mg/dL Normal 8.9 - 11.1 mg/dL [facility] Chloride [Moles/Vol] 104 mmol/L Normal 101 - 111 mmol/ L [facility] CO2 [Moles/Vol] 23 mmol/L Normal 21 - 31 mmol/L [facility] Remisol Creatinine [Mass/Vol] 0.8 mg/dL Normal 0.5 - 1.3 mg/d L [facility] Remisol GFR/1.73 sq M.predicted jean g blacks MDRD (S/P/Bld) [Vol rate/Area] mL/min/1.73 m2 Normal >=59mL/min/1.73 m2 FT Chem S GFR/1.73 sq M.predicted jean g non-blacks MDRD (S/P/Bld) [Vol rate/Area] mL/min/1.73 m2 Normal >=59mL/min/1.73 m2 [facility] Chem S Glucose [Mass/Vol] 84 mg/dL Normal 55 - 199 mg/dL [facility] Remisol Potassium [Moles/Vol] 3.5 mmol/L Normal 3.5 - 5.3 mmol /L [facility] Sodium [Moles/Vol] 135 mmol/L Normal 135 - 145 mmol/L [facility] Urea nitrogen [Mass/Vol] 9 mg/dL Normal 5 - 21 mg/d L [facility] Urea nitrogen/Creatinine [Ma ss ratio] 11 mg/mg Normal 10 - 20 [facility] [facility] [place] [facility] COAGULATIONOrdered By: Disha Mccarty on 01-31-2023 aPTT Coag (PPP) [Time] 31.3 s Normal 25.1 - 36.5 second(s) [facility] [place] [facility] INR Coag (PPP) [Relative time] 1.1 {INR} Invalid Interpretation Code [facility] Auto Coag PT Coag (PPP) [Time] 12.3 s Normal 9.4 - 12.5 second(s) [facility] [place] [facility]ag CTA Headon 01-31-2023 CTA Head Normal [facility] Consent for Treatmenton 01-13 Consent for Treatment [id number]#1.00CD:[address] [facility] Discharge Instructionson Discharge Instructions [id number]#1.00CD:[address] [facility] ED Clinical Summaryon 2022 ED Clinical Summary Normal [facility] ED Note-Physicianon 02-01-20 ED Note-Physician Normal [facility] Comment on above: Result Comment: Elec tronically Signed By: Kristian Guillermo DO\.br\Date and Time Signed: 01/31/23 14:00 EDT ED Patient Education Noteon 01-31-2023 ED Patient Education Note Normal [facility] ED Patient Summaryon 023 ED Patient Summary Normal [facility] HEMATOLOGYOrdered By: SYSTEM SYSTEM on 01-31-2023 Basophils/100 WBC (Bld) 0.3 % Normal 0.0 - 2.0 % [facility] [place] HemeAutoSS Basophils/Leukocytes Auto (B ld) [Pure # fraction] 0.0 E9/L Normal 0.0 - 0.2 E9/L [facility] HemeAutoSS Eosinophils/100 WBC (Bld) 2.8 % Normal 0.0 - 8.0 % [facility] HemeAutoSS Eosinophils/Leukocytes Auto (Bld) [Pure # fraction] 0.1 E9/L Normal 0.0 - 0.5 E9/L [facility] HemeAutoS S Lymphocytes/100 WBC (Bld) 30.0 % Normal 14.0 - 50. 0 % [facility] HemeAutoSS Lymphocytes/Leukocytes Auto (Bld) [Pure # fraction] 1.5 E9/L Normal 1.0 - 4.0 E9/L [facility] HemeAutoS S Monocytes/100 WBC (Bld) 7.0 % Normal 4.0 - 14.0 % [facility] HemeAutoSS Monocytes/Leukocytes Auto (B ld) [Pure # fraction] 0.4 E9/L Normal 0.2 - 1.0 E9/L [facility]eAutoSS Neutrophils/100 WBC (Bld) 59.9 % Normal 36.0 - 75. 0 % [facility] HemeAutoSS Neutrophils/Leukocytes Auto (Bld) [Pure # fraction] 3.1 E9/L Normal 2.0 - 7.5 E9/L [facility] HemeAutoS S HEMATOLOGYOrdered By: Janet Reyes on 01-31-2023 Erythrocyte distribution wid th (RBC) [Ratio] 12.9 % Normal 10.9 - 14.2 % [facility] HemeAutoSS Hematocrit (Bld) [Volume fraction] 46.4 % High 34.0 - 46.0 % [facility]eAutoSS Hemoglobin (Bld) [Mass/Vol] 15.0 g/dL Normal 12.0 - 1 6.0 gm/dL [facility] HemeAutoSS MCH (RBC) [Entitic mass] 28.6 pg Normal 27.0 - 34.0 pg [facility] HemeAutoSS MCHC (RBC) [Mass/Vol] 32.3 g/dL Normal 31.4 - 36.0 gm /dL [facility] HemeAutoSS MCV (RBC) [Entitic vol] 88.5 fL Normal 80.0 - 100.0 fL [facility] HemeAutoSS Platelet mean volume (Bld) [Entitic vol] 7.9 fL Normal 6.4 - 10.8 fL [facility] HemeAutoSS Platelets (Bld) [#/Vol] 300.0 E9/L Normal 150.0 - 500. 0 E9/L [facility] HemeAutoSS RBC (Bld) [#/Vol] 5.2 E12/L Normal 4.3 - 5.9 E12/L [facility] HemeAutoSS WBC corrected for nucl RBC A uto (Bld) [#/Vol] 5.1 E9/L Normal 4.0 - 11.0 E9/L [facility] HemeAutoSS PT & PTTon 01-31-2023 aPTT Coag (PPP) [Time] 31.3 second(s) Normal 25.1-36.5 [facility] Comment on above: Result Comment: Para meter 15 days - 4 weeks 1 - 5 months 6 - 11 months 1 - 5 years 6 - 10 years 11 - 17 years PTT Mean: 35.4 (27.6-45.6) Mean: 33.5 (24.8-40.7) Mean: 32.4 (25.1-40.7) Mean: 31.6 (24.0-39.2) Mean: 31.6 (26.9-38.7) Mean: 31.0 (24.6-38.4) Pediatric Reference ranges were obtained from a study by johanna Garcias al. prepared from 1437 samples obtained at 7 different centers using the same coagulation reagent and instrumentation as [facility] [place]. Currently there are no coagulation studies available worldwide for children to 14 days, and no normal ranges. Heparin therapeutic range (represented by Anti- Factor Xa activity of 0.2 - 0.4 U/mL) corresponds to PTT of 56.6 - 109.0 sec. Performed By: #### 2 [id number], [id number] ####[facility] [address] [place] [address] INR Coag (PPP) [Relative time] 1.1 {INR} Invalid Interpretation Code [facility] Comment on above: Result Comment: INR results are specifically intended to assess patients stabilized on long-term Anticoagulation therapy suggested INR?s ?Less Intensive Anticoagulation? 2.0 ? 3.0Conventional Range 3.0 ? 4.5 Performed By: #### 2 [id number], [id number] ####[facility] [address] [place] [address] PT Coag (PPP) [Time] 12.3 second(s) Normal 9.4-12.5 [facility] Comment on above: Result Comment: 15 d ays - 4 weeks 1 - 5 months 6 -11 months 1 ? 5 years 6 ? 10 years 11 -17 years Mean: 11.2 (9.5 ? 12.6) Mean: 11.0 (9.7 ? 12.8) Mean: 11.0 (9.8 ? 13.0) Mean: 11.3 (9.9 ? 13.4) Mean: 11.7 (10.0 ? 14.6) Mean: 11.8 (10.0 - 14.1) Pediatric Reference ranges were obtained from a study by johanna Garcias al. prepared from 1437 samples obtained at 7 different centers using the same coagulation reagent and instrumentation as [facility] [place]. Currently there are no coagulation studies available worldwide for children to 14 days, and no normal ranges. Performed By: #### 2 [id number], [id number] ####[facility] [address] [place] [address] Pre-Arrival Noteon 3 Pre-Arrival Note Normal [facility] SEROLOGYOrdered By: Nova Mccarty on 01-31-2023 Beta hCG Ql Negative (01/31/23 10:14 AM) Normal [facility] [place] Man Sero eGFRon 01-31-2023 GFR/1.73 sq M.predicted jean g blacks MDRD (S/P/Bld) [Vol rate/Area] mL/min/{1.73_m2} Normal >=59 [facility] Comment on above: Order Comment: Order added by Discern Expert. Result Comment: eGFR is race adjusted. AA=. Performed By: #### 2 011231, 8062142, [id number], [id number] ####[facility] [address] [place] [address] GFR/1.73 sq M.predicted jean g non-blacks MDRD (S/P/Bld) [Vol rate/Area] mL/min/{1.73_m2} Normal >=59 [facility] Comment on above: Order Comment: Order added by Discern Expert. Result Comment: Coil Inspector lucy kidney disease could be indicated at eGFR's of less than 60 mL/min/1.73m2. Kidney failure is indicated at less than 15 mL/min/1.73m2. Performed By: #### 2 930711, 6070291, [id number], [id number] ####[facility] [address] [place] [address] Nursing Assessmenton 023 Nursing Assessment [id number]#1.00CD:[address] [facility] Coding Summary.on 10-02-2022 Coding Summary. Normal [facility] Coding Summary. Normal [facility] Delivery Summaryon Delivery Summary Normal [facility] Comment on above: Result Comment: Elec tronically Signed By: Fabiana MARION, Luis Carlos Pope.br\Date and Time Signed: 09/29/22 09:25 EST General Message Officeon General Message Office Normal [facility] Insurance Correspondence Off iceon 09-28-2022 Insurance Correspondence Office [id number]#1.00CD:[address] [facility] Discharge Instructionson Discharge Instructions [id number]#1.00CD:[address] [facility] Inpatient Clinical Summaryon 09-27-2022 Inpatient Clinical Summary Normal [facility] Inpatient Patient Summaryon 09-27-2022 Inpatient Patient Summary Normal [facility] CBC w/Indiceson 09-26-2022 Erythrocyte distribution wid th (RBC) [Ratio] 13.1 % Normal 10.9-14.2 [facility] Comment on above: Performed By: #### 2 [id number] ####[facility] [address] [place] [address] Hematocrit (Bld) [Volume fraction] 32.1 % Low 3 4.0-46.0 [facility] Comment on above: Performed By: #### 2 380832 ####[facility] [address] [place] [address] Hemoglobin (Bld) [Mass/Vol] 11.1 g/dL Low 12.0-16. 0 [facility] Comment on above: Performed By: #### 2 412541 ####[facility] [address] [place] [address] MCH (RBC) [Entitic mass] 30.9 pg Normal 27.0-34.0 [facility] Comment on above: Performed By: #### 2 304669 ####[address] [place] [address] MCHC (RBC) [Mass/Vol] 34.5 g/dL Normal 31.4-36.0 [facility] Comment on above: Performed By: #### 2 487115 ####[address] [address] MCV (RBC) [Entitic vol] 89.7 fL Normal 80.0-100.0 [facility] Comment on above: Performed By: #### 2 167218 ####[address] [address] Platelet mean volume (Bld) [Entitic vol] 10.1 fL Normal 6.4-10.8 [facility] Comment on above: Performed By: #### 2 169199 ####[address] [address] Platelets (Bld) [#/Vol] 204.0 E9/L Normal 150.0-500.0 [facility] Comment on above: Performed By: #### 2 220534 ####[address] [address] RBC (Bld) [#/Vol] 3.6 E12/L Low 4.3-5.9 [facility] Comment on above: Performed By: #### 2 772577 ####[address] [address] WBC corrected for nucl RBC A uto (Bld) [#/Vol] 23.2 E9/L High 4.0-11.0 [facility] Comment on above: Performed By: #### 2 115378 ####[address] [address] Nursing Assessmenton 022 Nursing Assessment [id number]#1.00CD:[address] [facility] Progress Note-Physicianon Progress Note-Physician Normal [facility] Comment on above: Result Comment: Elec tronically Signed By: Luis Carlos Jung MD\.br\Date and Time Signed: 09/26/22 08:19 EST Coding Summary.on 09-25-2022 Coding Summary. Normal [facility] Coding Summary. Normal [facility] Consenton 09-25-2022 Consent [id number]#1.00C D:[address] [facility] Consent for Anesthesiaon Consent for Anesthesia [id number]#1.00CD:127 [facility] Discharge Instructionson Discharge Instructions [id number]#1.00CD:127 [facility] Help Me Grow Referralon 09-14 Help Me Grow Referral [id number]#1.00CD:127 [facility] Recordson Records [id number]#1.00CD:[address] [facility] Progress Note-Physicianon Progress Note-Physician Normal [facility] Comment on above: Result Comment: Elec tronically Signed By: Jimmy Corcoran Jr., DO\.br\Date and Time Signed: 09/25/22 08:31 EST Progress Note-Physician Normal [facility] Comment on above: Result Comment: Elec tronically Signed By: Jimmy Corcoran Jr., DO\.br\Date and Time Signed: 09/25/22 08:31 EST UA With Cult Reflexon 2021 Bilirubin Ql (U) Negative Normal Negative [facility] Comment on above: Order Comment: Urina ry Catheter Insertion triggered Urinalysis With Culture Reflex order by discern. Performed By: #### 1 [id number] ####[facility] [address] [place] [address] Clarity (U) CLEAR Normal Clear [facility] Comment on above: Order Comment: Urina ry Catheter Insertion triggered Urinalysis With Culture Reflex order by discern. Performed By: #### 1 2552945 ####[address] [address] Color (U) YELLOW Normal Yellow [facility] Comment on above: Order Comment: Urina ry Catheter Insertion triggered Urinalysis With Culture Reflex order by discern. Performed By: #### 1 [id number] ####[address] [address] Epithelial cells.squamous LM .HPF (Urine sed) [#/Area] 0-2 Normal 0-2 [facility] Comment on above: Order Comment: Urina ry Catheter Insertion triggered Urinalysis With Culture Reflex order by discern. Performed By: #### 1 9462104 ####[facility] [address] [place] [address] Glucose Test strip (U) [Mass/Vol] Negative Normal Negative [facility] Comment on above: Order Comment: Urina ry Catheter Insertion triggered Urinalysis With Culture Reflex order by discern. Performed By: #### 1 8713489 ####[facility] [address] [place] [address] Hemoglobin Ql (U) Negative Normal Negative [facility] Comment on above: Order Comment: Urina ry Catheter Insertion triggered Urinalysis With Culture Reflex order by discern. Performed By: #### 1 1995499 ####[facility] [address] [place] [address] Ketones (U) [Mass/Vol] Negative Normal Negative [facility] Comment on above: Order Comment: Urina ry Catheter Insertion triggered Urinalysis With Culture Reflex order by discern. Performed By: #### 1 6147439 ####[facility] [address] [place] [address] [place].plasma/[place].RBC (Bld) [Mass ratio] 0-3 N ormal 0-3 [facility] Comment on above: Order Comment: Urina ry Catheter Insertion triggered Urinalysis With Culture Reflex order by discern. Performed By: #### 1 9451898 ####[address] [address] Nitrite Ql (U) Negative Normal Negative [facility] Comment on above: Order Comment: Urina ry Catheter Insertion triggered Urinalysis With Culture Reflex order by discern. Performed By: #### 1 2262676 ####[address] [address] pH (U) 7.0 [pH] Invalid Interpretation Code 5.0-9.0 [facility] Comment on above: Order Comment: Urina ry Catheter Insertion triggered Urinalysis With Culture Reflex order by discern. Performed By: #### 1 6841335 ####[address] [address] Protein (U) [Mass/Vol] Negative Normal Negative [facility] Comment on above: Order Comment: Urina ry Catheter Insertion triggered Urinalysis With Culture Reflex order by discern. Performed By: #### 1 7343385 ####[address] [address] Specific gravity (U) [Rel density] <=1.005 Invalid Interpretation Code 1.005-1.030 [facility] Comment on above: Order Comment: Urina ry Catheter Insertion triggered Urinalysis With Culture Reflex order by discern. Performed By: #### 1 8145785 ####[address] [address] Type of Urine collection method Vyas Normal [facility] Comment on above: Order Comment: Urina ry Catheter Insertion triggered Urinalysis With Culture Reflex order by discern. Performed By: #### 1 8975572 ####[address] [address] Urobilinogen Qn (U) 0.2 {Rola'U}/dL Normal 0.0-1.0 [facility] Comment on above: Order Comment: Urina ry Catheter Insertion triggered Urinalysis With Culture Reflex order by discern. Performed By: #### 1 2401683 ####[facility] [address] [place] [address] WBC Auto Ql (U) Negative Normal Negative [facility] Comment on above: Order Comment: Urina ry Catheter Insertion triggered Urinalysis With Culture Reflex order by discern. Performed By: #### 1 2356291 ####[facility] [address] [place] [address] WBC LM.HPF (Urine sed) [#/Area] 0-5 Normal 0-5 [facility] Comment on above: Order Comment: Urina ry Catheter Insertion triggered Urinalysis With Culture Reflex order by discern. Performed By: #### 1 5389601 ####[facility] [address] [place] [address] Bilirubin Ql (U) Negative Normal Negative [facility] Comment on above: Performed By: #### 1 3070495 ####[facility] [address] [place] [address] Clarity (U) CLEAR Normal Clear [facility] Comment on above: Performed By: #### 1 3007558 ####[facility] [address] [place] [address] Color (U) YELLOW Normal Yellow [facility] Comment on above: Performed By: #### 1 2577688 ####[facility] [address] [place] [address] Epithelial cells.squamous LM .HPF (Urine sed) [#/Area] 0-2 Normal 0-2 [facility] Comment on above: Performed By: #### 1 1877071 ####[facility] [address] [place] [address] Glucose Test strip (U) [Mass/Vol] Negative Normal Negative [facility] Comment on above: Performed By: #### 1 6236135 ####[facility] [address] [place] [address] Hemoglobin Ql (U) Negative Normal Negative [facility] Comment on above: Performed By: #### 1 5582118 ####[address] [place] [address] Ketones (U) [Mass/Vol] Negative Normal Negative [facility] Comment on above: Performed By: #### 1 6419130 ####[address] [address] [place].plasma/[place].RBC (Bld) [Mass ratio] 0-3 N ormal 0-3 [facility] Comment on above: Performed By: #### 1 1823416 ####[address] [address] Nitrite Ql (U) Negative Normal Negative [facility] Comment on above: Performed By: #### 1 0334248 ####[address] [address] pH (U) 6.0 [pH] Invalid Interpretation Code 5.0-9.0 [facility] Comment on above: Performed By: #### 1 4127625 ####[address] [address] Protein (U) [Mass/Vol] Negative Normal Negative [facility] Comment on above: Performed By: #### 1 7743491 ####[address] [address] Specific gravity (U) [Rel density] <=1.005 Invalid Interpretation Code 1.005-1.030 [facility] Comment on above: Performed By: #### 1 9745633 ####[address] [address] Type of Urine collection method Clean Catch Normal [facility] Comment on above: Performed By: #### 1 0984547 ####[address] [address] Urobilinogen Qn (U) 0.2 {Rola'U}/dL Normal 0.0-1.0 [facility] Comment on above: Performed By: #### 1 6910302 ####[address] [address] WBC Auto Ql (U) Negative Normal Negative [facility] Comment on above: Performed By: #### 1 9203005 ####[facility] [address] [place] [address] WBC LM.HPF (Urine sed) [#/Area] 0-5 Normal 0-5 [facility] Comment on above: Performed By: #### 1 0428600 ####[facility] [address] [place] [address] Vaccinationson 09-25-2022 Vaccinations [id number]#1.0 0CD:[address] [facility] Vaccinations [id number]#1.0 0CD:[address] [facility] ABO/Rhon 09-24-2022 ABO/Rh Positive Invalid Interpretation Code [facility] Comment on above: Performed By: #### 1 3585709, 00393001, 20233472, 6690573 ####[facility] [address] [place] [address] ABO/Rh History Checkon 09-24 ABO/Rh History Check Verified Hx Blood Type Normal [facility] Comment on above: Performed By: #### 1 1513037, 13735227, 79007273, 9229971 ####[facility] [address] [place] [address] ABSCon 09-24-2022 ABSC Gel Interp Negative Normal [facility] Comment on above: Performed By: #### 1 3469569, 51325306, 86406334, 0097884 ####[facility] [address] [place] [address] Blood Bank ID#on 09-24-2022 BBID# [id number] Invalid Interpretation Code [facility] Comment on above: Performed By: #### 1 5140127, 26576495, 67685336, 5694712 ####[facility] [address] [place] [address] CBC w/Indiceson 09-24-2022 Erythrocyte distribution wid th (RBC) [Ratio] 13.0 % Normal 10.9-14.2 [facility] Comment on above: Performed By: #### 2 634600 ####[facility] [address] [place] [address] Hematocrit (Bld) [Volume fraction] 38.0 % Normal 34.0-46.0 [facility] Comment on above: Performed By: #### 2 264380 ####[address] [address] Hemoglobin (Bld) [Mass/Vol] 12.8 g/dL Normal 12.0-16. 0 [facility] Comment on above: Performed By: #### 2 660398 ####[address] [address] MCH (RBC) [Entitic mass] 31.3 pg Normal 27.0-34.0 [facility] Comment on above: Performed By: #### 2 151830 ####[address] [address] MCHC (RBC) [Mass/Vol] 33.7 g/dL Normal 31.4-36.0 [facility] Comment on above: Performed By: #### 2 253031 ####[address] [address] MCV (RBC) [Entitic vol] 92.9 fL Normal 80.0-100.0 F [facility] Comment on above: Performed By: #### 2 594153 ####[address] [place] [address] Platelet mean volume (Bld) [Entitic vol] 9.8 fL Normal 6.4-10.8 [facility] Comment on above: Performed By: #### 2 620044 ####[facility] [address] [place] [address] Platelets (Bld) [#/Vol] 238.0 E9/L Normal 150.0-500.0 [facility] Comment on above: Performed By: #### 2 473718 ####[facility] [address] [place] [address] RBC (Bld) [#/Vol] 4.1 E12/L Low 4.3-5.9 [facility] Comment on above: Performed By: #### 2 310871 ####[facility] [address] [place] [address] WBC corrected for nucl RBC A uto (Bld) [#/Vol] 12.8 E9/L High 4.0-11.0 [facility] Comment on above: Performed By: #### 2 645137 ####[facility] [address] [place] [address] Consent for Treatmenton 09-14 Consent for Treatment [id number]#1.00CD:127 [facility] Consent for Treatment [id number]#1.00CD:127 [facility] Consent for Treatmenton Consent for Treatment [id number]#1.00CD:127 [facility] Discharge Instructionson Discharge Instructions [id number]#1.00CD:[address] [facility] Inpatient Clinical Summaryon 09-22-2022 Inpatient Clinical Summary Normal [facility] Inpatient Patient Summaryon 09-22-2022 Inpatient Patient Summary [facility] Insurance Correspondence Off iceon 09-22-2022 Insurance Correspondence Office [id number]#1.00CD:127 [facility] Nursing Assessmenton 022 Nursing Assessment [id number]#1.00CD:127 [facility] Nursing Assessment [id number]#1.00CD:[address] [facility] Discharge Instructionson Discharge Instructions [id number]#1.00CD:[address] [facility] Inpatient Clinical Summaryon 09-20-2022 Inpatient Clinical Summary Normal [facility] Inpatient Patient Summaryon 09-20-2022 Inpatient Patient Summary Normal [facility] Insurance Correspondence Off iceon 09-20-2022 Insurance Correspondence Office [id number]#1.00CD:[address] [facility] Consent for Treatmenton Consent for Treatment [id number]#1.00CD:[address] [facility] Discharge Instructionson Discharge Instructions [id number]#1.00CD:[address] [facility] Inpatient Clinical Summaryon 09-19-2022 Inpatient Clinical Summary Normal [facility] Inpatient Patient Summaryon 09-19-2022 Inpatient Patient Summary Normal [facility] Insurance Correspondenceon 1 11-20-2021 Insurance Correspondence [id number]#1.00CD:[address] [facility] UA With Cult Reflexon 2021 Bilirubin Ql (U) Negative Normal Negative [facility] Comment on above: Performed By: #### 1 2140008 ####[facility] [address] [place] [address] Clarity (U) CLEAR Normal Clear [facility] Comment on above: Performed By: #### 1 1247129 ####[facility] [address] [place] [address] Color (U) YELLOW Normal Yellow [facility] Comment on above: Performed By: #### 1 0604439 ####[facility] [address] [place] [address] Epithelial cells.squamous LM .HPF (Urine sed) [#/Area] 0-2 Normal 0-2 [facility] Comment on above: Performed By: #### 1 1356629 ####[facility] [address] [place] [address] Glucose Test strip (U) [Mass/Vol] Negative Normal Negative [facility] Comment on above: Performed By: #### 1 3917282 ####[address] [place] [address] Hemoglobin Ql (U) Negative Normal Negative [facility] Comment on above: Performed By: #### 1 5609352 ####[address] [place] [address] Ketones (U) [Mass/Vol] Negative Normal Negative [facility] Comment on above: Performed By: #### 1 1901034 ####[address] [address] [place].plasma/[place].RBC (Bld) [Mass ratio] 0-3 N ormal 0-3 [facility] Comment on above: Performed By: #### 1 3084021 ####[address] [place] [address] Nitrite Ql (U) Negative Normal Negative [facility] Comment on above: Performed By: #### 1 5877900 ####[address] [address] pH (U) 7.0 [pH] Invalid Interpretation Code 5.0-9.0 [facility] Comment on above: Performed By: #### 1 2951622 ####[address] [place] [address] Protein (U) [Mass/Vol] Negative Normal Negative [facility] Comment on above: Performed By: #### 1 [id number] ####[address] [address] Specific gravity (U) [Rel density] <=1.005 Invalid Interpretation Code 1.005-1.030 [facility] Comment on above: Performed By: #### 1 [id number] ####[address] [place] [address] Type of Urine collection method Clean Catch Normal [facility] Comment on above: Performed By: #### 1 0728264 ####[address] [place] [id number] Urobilinogen Qn (U) 0.2 {Rola'U}/dL Normal 0.0-1.0 [facility] Comment on above: Performed By: #### 1 3063389 ####[place] [address] WBC Auto Ql (U) Negative Normal Negative [facility] Comment on above: Performed By: #### 1 7513515 ####[place] [address] WBC LM.HPF (Urine sed) [#/Area] 0-5 Normal 0-5 [facility] Comment on above: Performed By: #### 1 0842845 ####[place] [address] URINALYSISOrdered By: Jeanette Castle on 09-19-2022 Bilirubin Ql (U) Negative (09/19/22 1:44 AM) Normal Negative [facility] UA Auto SS Clarity (U) Clear (09/19/22 1:44 AM) Normal Clear [facility] Auto SS Color (U) Yellow (09/19/22 1:44 AM) Normal Yellow [facility] UA Auto SS Epithelial cells.squamous LM.HPF (Urine sed) [#/Area] 0-2 /HPF Normal 0-2/HPF [facility] UA Auto SS Glucose Test strip (U) [Mass/Vol] Negative (09/19/22 1:44 AM) Normal Negative [facility] UA Auto SS Hemoglobin Ql (U) Negative (09/19/22 1:44 AM) Normal Negative [facility] UA Auto SS Ketones (U) [Mass/Vol] Negative (09/19/22 1:44 AM) Normal Negative [facility] UA Auto SS [place].plasma/Lithi um.RBC (Bld) [Mass ratio] 0-3 /HPF Normal 0-3/HPF [facility] UA Auto SS Nitrite Ql (U) Negative (09/19/22 1:44 AM) Normal Negative [facility] UA Auto SS pH (U) 7.0 *NA* (09/19/22 1:44 AM) Invalid Interpretation Code 5.0 - 9.0 [facility] UA Auto SS Protein (U) [Mass/Vol] Negative (09/19/22 1:44 AM) Normal Negative [facility] UA Auto SS Specific gravity (U) [Rel density] <=1.005 *NA* (09/19/22 1:44 AM) Invalid Interpretation Code 1.005 - 1.030 [facility] UA Auto SS UA Spec Desc Clean Catch (09/19/22 1:44 AM) Normal [facility] UA Auto SS Urobilinogen Qn (U) 0.4133812 {Rola'U}/dL Normal 0.0 - 1.0 EU/dL [facility] UA Auto SS WBC Auto Ql (U) Negative (09/19/22 1:44 AM) Normal Negative [facility] UA Auto SS WBC LM.HPF (Urine sed) [#/Area] 0-5 /HPF Normal 0-5/HPF [facility] UA Auto SS Coding Summary.on 09-18-2022 Coding Summary. Normal [facility] Nursing Assessmenton 022 Nursing Assessment [id number]#1.00CD:[address] [facility] Coding Summary.on 09-15-2022 Coding Summary. Normal [facility] Coding Summary.on 09-14-2022 Coding Summary. Normal [facility] Consent for Treatmenton Consent for Treatment [id number]#1.00CD:[address] [facility] Consent for Treatment [id number]#1.00CD:127 [facility] Discharge Instructionson Discharge Instructions [id number]#1.00CD:[address] [facility] Inpatient Clinical Summaryon 09-14-2022 Inpatient Clinical Summary Normal [facility] Inpatient Patient Summaryon 09-14-2022 Inpatient Patient Summary Normal [facility] Insurance Correspondence Off iceon 09-14-2022 Insurance Correspondence Office [id number]#1.00CD:[address] [facility] Nursing Assessmenton 022 Nursing Assessment [id number]#1.00CD:[address] [facility] UA With Cult Reflexon 2021 Bacteria LM Ql (Urine sed) TRACE Normal Trace [facility] Comment on above: Performed By: #### 1 [id number] ####[facility] [address] [place] [address] Bilirubin Ql (U) Negative Normal Negative [facility] Comment on above: Performed By: #### 1 0362740 ####[facility] [address] [place] [address] Clarity (U) CLEAR Normal Clear [facility] Comment on above: Performed By: #### 1 2162784 ####[facility] [address] [place] [address] Color (U) YELLOW Normal Yellow [facility] Comment on above: Performed By: #### 1 3895645 ####[facility] [address] [place] [address] Crystals LM Ql (Urine sed) Present Normal [facility] Comment on above: Performed By: #### 1 6338544 ####[facility] [address] [place] [address] Epithelial cells.squamous LM .HPF (Urine sed) [#/Area] 0-2 Normal 0-2 [facility] Comment on above: Performed By: #### 1 8546011 ####[facility] [address] [place] [address] Glucose Test strip (U) [Mass/Vol] Negative Normal Negative [facility] Comment on above: Performed By: #### 1 4275904 ####[facility] [address] [place] [address] Hemoglobin Ql (U) Negative Normal Negative [facility] Comment on above: Performed By: #### 1 5961293 ####[facility] [address] [place] [address] Ketones (U) [Mass/Vol] Negative Normal Negative [facility] Comment on above: Performed By: #### 1 7799988 ####[address] [address] [place].plasma/[place].RBC (Bld) [Mass ratio] 0-3 N ormal 0-3 [facility] Comment on above: Performed By: #### 1 4933182 ####[address] [address] Mucus Ql (Urine sed) TRACE Normal [facility] Comment on above: Performed By: #### 1 8775513 ####[address] [address] Nitrite Ql (U) Negative Normal Negative [facility] Comment on above: Performed By: #### 1 3340449 ####[address] [address] pH (U) 6.0 [pH] Invalid Interpretation Code 5.0-9.0 [facility] Comment on above: Performed By: #### 1 8774199 ####[address] [address] Protein (U) [Mass/Vol] Negative Normal Negative [facility] Comment on above: Performed By: #### 1 6773939 ####[address] [address] Specific gravity (U) [Rel density] <=1.005 Invalid Interpretation Code 1.005-1.030 [facility] Comment on above: Performed By: #### 1 5073722 ####[address] [address] Type of Urine collection method Random Urine Normal [facility] Comment on above: Performed By: #### 1 2983272 ####[address] [address] Urobilinogen Qn (U) 0.2 {Rola'U}/dL Normal 0.0-1.0 [facility] Comment on above: Performed By: #### 1 8801494 ####[facility] [address] [place] [address] WBC Auto Ql (U) TRACE Abnormal Negative [facility] Comment on above: Performed By: #### 1 1688227 ####[facility] [address] [place] [address] WBC LM.HPF (Urine sed) [#/Area] 0-5 Normal 0-5 [facility] Comment on above: Performed By: #### 1 2754157 ####[facility] [address] [place] [address] URINALYSISOrdered By: An Lassiter on 09-14-2022 Bacteria LM Ql (Urine sed) Trace /HPF Normal Trace/HPF [facility] Auto SS Bilirubin Ql (U) Negative (09/14/22 9:25 AM) Normal Negative [facility] UA Auto SS Clarity (U) Clear (09/14/22 9:25 AM) Normal Clear [facility] UA Auto SS Color (U) Yellow (09/14/22 9:25 AM) Normal Yellow [facility] UA Auto SS Crystals LM Ql (Urine sed) Present (09/14/22 9:25 AM) Normal [facility] UA Auto SS Epithelial cells.squamous LM.HPF (Urine sed) [#/Area] 0-2 /HPF Normal 0-2/HPF [facility] UA Auto SS Glucose Test strip (U) [Mass/Vol] Negative (09/14/22 9:25 AM) Normal Negative [facility] UA Auto SS Hemoglobin Ql (U) Negative (09/14/22 9:25 AM) Normal Negative [facility] UA Auto SS Ketones (U) [Mass/Vol] Negative (09/14/22 9:25 AM) Normal Negative [facility] UA Auto SS [place].plasma/Lithi um.RBC (Bld) [Mass ratio] 0-3 /HPF Normal 0-3/HPF [facility] UA Auto SS Mucus Ql (Urine sed) Trace (09/14/22 9:25 AM) Normal [facility] UA Auto SS Nitrite Ql (U) Negative (09/14/22 9:25 AM) Normal Negative [facility] UA Auto SS pH (U) 6.0 *NA* (09/14/22 9:25 AM) Invalid Interpretation Code 5.0 - 9.0 [facility] UA Auto SS Protein (U) [Mass/Vol] Negative (09/14/22 9:25 AM) Normal Negative [facility] UA Auto SS Specific gravity (U) [Rel density] <=1.005 *NA* (09/14/22 9:25 AM) Invalid Interpretation Code 1.005 - 1.030 [facility] UA Auto SS UA Spec Desc Random Urine (09/14/22 9:25 AM) Normal [facility] UA Auto SS Urobilinogen Qn (U) 0.6914486 {Rola'U}/dL Normal 0.0 - 1.0 EU/dL [facility] UA Auto SS WBC Auto Ql (U) Trace *ABN* (09/14/22 9:25 AM) Invalid Interpretation Code Negative [facility] UA Auto SS WBC LM.HPF (Urine sed) [#/Area] 0-5 /HPF Normal 0-5/HPF [facility] UA Auto SS Coding Summary.on 09-12-2022 Coding Summary. Normal [facility] Consent for Treatmenton 08-16 Consent for Treatment [id number]#1.00CD:[address] [facility] Discharge Instructionson Discharge Instructions [id number]#1.00CD:[address] [facility] Discharge Instructions [id number]#1.00CD:[address] [facility] Inpatient Clinical Summaryon 09-12-2022 Inpatient Clinical Summary Normal [facility] Inpatient Patient Summaryon 09-12-2022 Inpatient Patient Summary Normal [facility] Insurance Correspondenceon 11-12-2021 Insurance Correspondence [id number]#1.00CD:[address] [facility] Insurance Correspondence Off iceon 09-12-2022 Insurance Correspondence Office [id number]#1.00CD:[address] [facility] Nursing Assessmenton 022 Nursing Assessment [id number]#1.00CD:[address] [facility] UA With Cult Reflexon 2021 Bilirubin Ql (U) Negative Normal Negative [facility] Comment on above: Performed By: #### 1 [id number] ####[facility] [address] [place] [address] Clarity (U) CLEAR Normal Clear [facility] Comment on above: Performed By: #### 1 1861210 ####[address] [place] [address] Color (U) YELLOW Normal Yellow [facility] Comment on above: Performed By: #### 1 3186892 ####[facility] [address] [place] [address] Crystals LM Ql (Urine sed) Present Normal [facility] Comment on above: Performed By: #### 1 7596243 ####[facility] [address] [place] [address] Epithelial cells.squamous LM .HPF (Urine sed) [#/Area] 3-4 Normal 0-2 [facility] Comment on above: Performed By: #### 1 3714609 ####[facility] [address] [place] [address] Glucose Test strip (U) [Mass/Vol] Negative Normal Negative [facility] Comment on above: Performed By: #### 1 1942606 ####[facility] [address] [place] [address] Hemoglobin Ql (U) Negative Normal Negative [facility] Comment on above: Performed By: #### 1 1489978 ####[facility] [address] [place] [address] Ketones (U) [Mass/Vol] Negative Normal Negative [facility] Comment on above: Performed By: #### 1 7429911 ####[place] [address] [place].plasma/[place].RBC (Bld) [Mass ratio] 0-3 N ormal 0-3 [facility] Comment on above: Performed By: #### 1 3519396 ####[address] [address] Nitrite Ql (U) Negative Normal Negative [facility] Comment on above: Performed By: #### 1 5372152 ####[address] [address] pH (U) 6.0 [pH] Invalid Interpretation Code 5.0-9.0 [facility] Comment on above: Performed By: #### 1 0191765 ####[address] [address] Protein (U) [Mass/Vol] Negative Normal Negative [facility] Comment on above: Performed By: #### 1 4516212 ####[place] [address] Specific gravity (U) [Rel density] 1.010 Invalid Interpretation Code 1.005-1.030 [facility] Comment on above: Performed By: #### 1 9993219 ####[address] [address] Type of Urine collection method Clean Catch Normal [facility] Comment on above: Performed By: #### 1 3275357 ####[address] [address] Urobilinogen Qn (U) 0.2 {Rola'U}/dL Normal 0.0-1.0 [facility] Comment on above: Performed By: #### 1 2114306 ####[address] [address] WBC Auto Ql (U) Negative Normal Negative [facility] Comment on above: Performed By: #### 1 6282712 ####[address] [address] WBC LM.HPF (Urine sed) [#/Area] 0-5 Normal 0-5 [facility] Comment on above: Performed By: #### 1 7539052 ####[facility] [address] [place] [address] URINALYSISOrdered By: Jose Miguel nelson on 09-12-2022 Bilirubin Ql (U) Negative (09/12/22 8:15 PM) Normal Negative [facility] UA Auto SS Clarity (U) Clear (09/12/22 8:15 PM) Normal Clear [facility] UA Auto SS Color (U) Yellow (09/12/22 8:15 PM) Normal Yellow [facility] UA Auto SS Crystals LM Ql (Urine sed) Present (09/12/22 8:15 PM) Normal [facility] UA Auto SS Epithelial cells.squamous LM.HPF (Urine sed) [#/Area] 3-4 /HPF Normal 0-2/HPF [facility] UA Auto SS Glucose Test strip (U) [Mass/Vol] Negative (09/12/22 8:15 PM) Normal Negative [facility] UA Auto SS Hemoglobin Ql (U) Negative (09/12/22 8:15 PM) Normal Negative [facility] UA Auto SS Ketones (U) [Mass/Vol] Negative (09/12/22 8:15 PM) Normal Negative [facility] UA Auto SS [place].plasma/Lithi um.RBC (Bld) [Mass ratio] 0-3 /HPF Normal 0-3/HPF [facility] UA Auto SS Nitrite Ql (U) Negative (09/12/22 8:15 PM) Normal Negative [facility] UA Auto SS pH (U) 6.0 *NA* (09/12/22 8:15 PM) Invalid Interpretation Code 5.0 - 9.0 [facility] UA Auto SS Protein (U) [Mass/Vol] Negative (09/12/22 8:15 PM) Normal Negative [facility] UA Auto SS Specific gravity (U) [Rel density] 1.010 *NA* (09/12/22 8:15 PM) Invalid Interpretation Code 1.005 - 1.030 [facility] UA Auto SS UA Spec Desc Clean Catch (09/12/22 8:15 PM) Normal [facility] UA Auto SS Urobilinogen Qn (U) 0.9713874 {Rola'U}/dL Normal 0.0 - 1.0 EU/dL [facility] UA Auto SS WBC Auto Ql (U) Negative (09/12/22 8:15 PM) Normal Negative [facility] UA Auto SS WBC LM.HPF (Urine sed) [#/Area] 0-5 /HPF Normal 0-5/HPF [facility] UA Auto SS Coding Summary.on 09-11-2022 Coding Summary. Normal [facility] Consent for Treatmenton 08-16 Consent for Treatment [id number]#1.00CD:[address] [facility] Discharge Instructionson Discharge Instructions [id number]#1.00CD:[address] [facility] Inpatient Clinical Summaryon 09-08-2022 Inpatient Clinical Summary Normal [facility] Inpatient Patient Summaryon 09-08-2022 Inpatient Patient Summary Normal [facility] Coding Summary.on 09-06-2022 Coding Summary. Normal [facility] Discharge Instructionson Discharge Instructions [id number]#1.00CD:[address] [facility] ED Clinical Summaryon 2021 ED Clinical Summary Normal [facility] ED Note-Nursingon 09-06-2022 ED Note-Nursing pt given d/c instruc tions and educated on importance of follow up. pt educated on new medications. pt verbalized understanding of instructions and readiness for d/c. pt walked self ambulatory to waiting room in stable condition Normal [facility] ED Patient Education Noteon 09-06-2022 ED Patient Education Note Normal [facility] ED Patient Summaryon 022 ED Patient Summary Normal [facility] XR Chest Single Viewon 09-06 XR Chest Single View Normal [facility] Auto Diffon 09-05-2022 Basophils/100 WBC (Bld) 1.0 % Normal 0.0-2.0 F [facility] Comment on above: Order Comment: Order Added by Discern Expert. Performed By: #### 2 949249, 69184573, 19009318, 9702646, 47437712, 70238067, 3746443 ####[address] [place] [address] Basophils/Leukocytes Auto (B ld) [Pure # fraction] 0.1 E9/L Normal 0.0-0.2 [facility] Comment on above: Order Comment: Order Added by Discern Expert. Performed By: #### 2 272303, 10265971, 36202702, 7707058, 32013053, 09641476, 2402211 ####[address] [address] Eosinophils/100 WBC (Bld) 1.4 % Normal 0.0-8.0 [facility] Comment on above: Order Comment: Order Added by Discern Expert. Performed By: #### 2 427243, 53037304, 65459106, 7293901, 56112803, 52057078, 0672500 ####[address] [address] Eosinophils/Leukocytes Auto (Bld) [Pure # fraction] 0.2 E9/L Normal 0.0-0.5 [facility] Comment on above: Order Comment: Order Added by Discern Expert. Performed By: #### 2 472560, 58874293, 46405120, 5043097, 12616728, 76050109, 6754479 ####[address] [address] Lymphocytes/100 WBC (Bld) 18.8 % Normal 14.0-50.0 [facility] Comment on above: Order Comment: Order Added by Discern Expert. Performed By: #### 2 560774, 97654667, 84495685, 8808798, 44237534, 69387553, 6347108 ####[address] [address] Lymphocytes/Leukocytes Auto (Bld) [Pure # fraction] 2.0 E9/L Normal 1.0-4.0 [facility] Comment on above: Order Comment: Order Added by Discern Expert. Performed By: #### 2 688694, 64318113, 86556713, 2513703, 82235520, 07488707, 8879760 ####[facility] [address] [place] [address] Monocytes/100 WBC (Bld) 6.8 % Normal 4.0-14.0 [facility] Comment on above: Order Comment: Order Added by Discern Expert. Performed By: #### 2 906166, 20568407, 97966281, 4959794, 76390399, 96274973, 2130774 ####[facility] [address] [place] [address] Monocytes/Leukocytes Auto (B ld) [Pure # fraction] 0.7 E9/L Normal 0.2-1.0 [facility] Comment on above: Order Comment: Order Added by Discern Expert. Performed By: #### 2 628922, 00411903, 02382151, 3433033, 39830983, 96331549, 6810062 ####[facility] [address] [place] [address] Neutrophils/100 WBC (Bld) 72.0 % Normal 36.0-75.0 [facility] Comment on above: Order Comment: Order Added by Discern Expert. Performed By: #### 2 158140, 89305139, 51297888, 1603701, 99864427, 59414176, 0021039 ####[facility] [address] [place] [address] Neutrophils/Leukocytes Auto (Bld) [Pure # fraction] 7.8 E9/L High 2.0-7.5 [facility] Comment on above: Order Comment: Order Added by Discern Expert. Performed By: #### 2 339464, 00824429, 87320128, 7027521, 77595912, 22349997, 3437867 ####[facility] [address] [place] [address] BMPon 09-05-2022 Creatinine [Mass/Vol] 0.7 mg/dL Normal 0.5-1.3 [facility] Comment on above: Performed By: #### 2 659454, 41648722, 71187494, 2708916, 28763490, 41420510, 9670448 ####[facility] [address] [place] [address] Urea nitrogen [Mass/Vol] 7 mg/dL Normal 5-21 [facility] Comment on above: Performed By: #### 2 224263, 69754553, 05873871, 7734157, 78640567, 09897434, 5511375 ####[facility] [address] [place] [address] Urea nitrogen/Creatinine [Ma ss ratio] 10 No Units Normal 10-20 [facility] Comment on above: Performed By: #### 2 697619, 60832485, 31545770, 3458866, 46930321, 48632364, 5354106 ####[facility] [address] [place] [address] Anion gap [Moles/Vol] 10 mmol/L Normal 6-16 [facility] Comment on above: Performed By: #### 2 064535, 93961181, 15779527, 0852645, 76647634, 82054719, 5365274 ####[facility] [address] [place] [address] Calcium [Mass/Vol] 8.8 mg/dL Low 8.9-11.1 [facility] Comment on above: Performed By: #### 2 004327, 58577335, 25906770, 4200245, 61384473, 89369221, 4146817 ####[facility] [address] [place] [place] [address] Chloride [Moles/Vol] 102 mmol/L Normal 101-111 [facility] Comment on above: Performed By: #### 2 443004, 73095838, 15662657, 8877544, 90428209, 69467923, 1234285 ####[facility] [address] [place] [address] CO2 [Moles/Vol] 22 mmol/L Normal 21-31 [facility] Comment on above: Performed By: #### 2 314951, 68696906, 93980689, 2011791, 73297440, 49756865, 4417576 ####[facility] [address] [place] [address] Glucose [Mass/Vol] 87 mg/dL Normal 55-199 [facility] Comment on above: Result Comment: If t his glucose result represents a fasting glucose, interpretation should refer to the following reference range: 55-99 mg/dL Performed By: #### 2 791151, 29298654, 19209920, 8203547, 99429757, 39382328, 9999760 ####[facility] [address] [place] [address] Potassium [Moles/Vol] 3.3 mmol/L Low 3.5-5.3 [facility] Comment on above: Performed By: #### 2 551885, 81435403, 78342735, 4928782, 36096488, 57449458, 1423512 ####[facility] [address] [place] [address] Sodium [Moles/Vol] 131 mmol/L Low 135-145 [facility] Comment on above: Performed By: #### 2 968403, 60315214, 54495847, 3696859, 02593953, 33528040, 3719504 ####[facility] [address] [place] [address] BNPon 09-05-2022 Int Ctr BNP Pass Normal [facility] Comment on above: Performed By: #### 2 467658, 08402263, 28574567, 1097593, 43097082, 17685472, 1658622 ####[facility] [address] [place] [address] Natriuretic peptide B (Bld) [Mass/Vol] 8 pg/mL Normal 5-80 [facility] Comment on above: Performed By: #### 2 831487, 91427509, 87711797, 2618360, 22440088, 61841290, 2440111 ####[facility] [address] [place] [address] CBC w/ Auto Diffon 2 Erythrocyte distribution wid th (RBC) [Ratio] 12.7 % Normal 10.9-14.2 [facility] Comment on above: Performed By: #### 2 604161, 86292369, 73797080, 5278518, 13192376, 95808970, 0070422 ####[address] [place] [address] Hematocrit (Bld) [Volume fraction] 34.2 % Normal 34.0-46.0 [facility] Comment on above: Performed By: #### 2 856317, 44941359, 34757520, 2020002, 04370147, 67847312, 8594065 ####[address] [address] Hemoglobin (Bld) [Mass/Vol] 12.3 g/dL Normal 12.0-16. 0 [facility] Comment on above: Performed By: #### 2 973387, 84131397, 91725247, 9401696, 64582295, 74224420, 4750486 ####[address] [place] [address] MCH (RBC) [Entitic mass] 31.8 pg Normal 27.0-34.0 [facility] Comment on above: Performed By: #### 2 255552, 05559394, 32642879, 6119056, 98401074, 89804576, 0907129 ####[address] [address] MCHC (RBC) [Mass/Vol] 35.9 g/dL Normal 31.4-36.0 [facility] Comment on above: Performed By: #### 2 807192, 68207939, 54296299, 6082607, 08213310, 08851479, 6730847 ####[address] [place] [address] MCV (RBC) [Entitic vol] 88.7 fL Normal 80.0-100.0 F [facility] Comment on above: Performed By: #### 2 679815, 12056617, 95537642, 7561857, 70181840, 32287006, 0956545 ####[address] [address] Platelet mean volume (Bld) [Entitic vol] 9.8 fL Normal 6.4-10.8 [facility] Comment on above: Performed By: #### 2 902860, 27047793, 59108616, 3612114, 97183520, 32311475, 1109658 ####[address] [address] Platelets (Bld) [#/Vol] 215.0 E9/L Normal 150.0-500.0 [facility] Comment on above: Performed By: #### 2 383507, 80211667, 59280598, 1955751, 33101491, 43423459, 7803851 ####[address] [address] RBC (Bld) [#/Vol] 3.9 E12/L Low 4.3-5.9 [facility] Comment on above: Performed By: #### 2 031045, 63511795, 40717753, 7801969, 26543489, 15522387, 5198882 ####[address] [address] WBC corrected for nucl RBC A uto (Bld) [#/Vol] 10.9 E9/L Normal 4.0-11.0 [facility] Comment on above: Result Comment: Slid e reviewed by ts. Performed By: #### 2 078565, 75824252, 25857454, 0255035, 24780853, 95656658, 4352169 ####[facility] [address] [place] [address] CHEMISTRYOrdered By: SYSTEM SYSTEM on 09-05-2022 Anion gap [Moles/Vol] 10 mmol/L Normal 6 - 16 mEq/L F [facility] Remisol Calcium [Mass/Vol] 8.8 mg/dL Low 8.9 - 11.1 mg/dL [facility] Chloride [Moles/Vol] 102 mmol/L Normal 101 - 111 mmol/ L [facility] CO2 [Moles/Vol] 22 mmol/L Normal 21 - 31 mmol/L [facility] Creatinine [Mass/Vol] 0.7 mg/dL Normal 0.5 - 1.3 mg/d L [facility] GFR/1.73 sq M.predicted jean g blacks MDRD (S/P/Bld) [Vol rate/Area] mL/min/1.73 m2 Normal >=59mL/min/1.73 m2 [facility] Chem S GFR/1.73 sq M.predicted jean g non-blacks MDRD (S/P/Bld) [Vol rate/Area] mL/min/1.73 m2 Normal >=59mL/min/1.73 m2 [facility] Chem S Glucose [Mass/Vol] 87 mg/dL Normal 55 - 199 mg/dL [facility] Potassium [Moles/Vol] 3.3 mmol/L Low 3.5 - 5.3 mmol /L [facility] Sodium [Moles/Vol] 131 mmol/L Low 135 - 145 mmol/L [facility] Remisol Troponin I.cardiac [Mass/Vol] 4.70 pg/mL Low 10.10 - 27.10 pg/mL [facility] Urea nitrogen [Mass/Vol] 7 mg/dL Normal 5 - 21 mg/d L [facility] Urea nitrogen/Creatinine [Ma ss ratio] 10 mg/mg Normal 10 - 20 [facility] CHEMISTRYOrdered By: Temi hayden on 09-05-2022 Natriuretic peptide B (Bld) [Mass/Vol] 8 pg/mL Normal 5 - 80 pg/mL [facility] HemeManSS COAGULATIONOrdered By: Yamile Li on 09-05-2022 aPTT Coag (PPP) [Time] 27.1 s Normal 25.1 - 36.5 second(s) [facility] Auto Coag INR Coag (PPP) [Relative time] 0.9 {INR} Invalid Interpretation Code [facility] Auto [facility]ag PT Coag (PPP) [Time] 10.3 s Normal 9.4 - 12.5 second(s) [facility] Consent for Treatmenton 08-16 Consent for Treatment [id number]#1.00CD:[address] [facility] ED Note-Nursingon 09-05-2022 ED Note-Nursing Normal [facility] ED Note-Physicianon 09-05-20 ED Note-Physician Normal [facility] Comment on above: Result Comment: Elec tronically Signed By: Gopi Rodriguez DO\.br\Date and Time Signed: 09/05/22 21:46 EST Group B Strep by PCRon 09-05 Group B Strep colonization by PCR Negative Normal Ne gative [facility] Comment on above: Performed By: #### 4 [id number] ####[facility] [address] [place] [address] HEMATOLOGYOrdered By: SYSTEM SYSTEM on 09-05-2022 Basophils/100 WBC (Bld) 1.0 % Normal 0.0 - 2.0 % [facility]eAutoSS Basophils/Leukocytes Auto (B ld) [Pure # fraction] 0.1 E9/L Normal 0.0 - 0.2 E9/L [facility]Auto[facility] Eosinophils/100 WBC (Bld) 1.4 % Normal 0.0 - 8.0 % [facility]eAutoSS Eosinophils/Leukocytes Auto (Bld) [Pure # fraction] 0.2 E9/L Normal 0.0 - 0.5 E9/L [facility]eAutoS S Lymphocytes/100 WBC (Bld) 18.8 % Normal 14.0 - 50. 0 % [facility]eAutoSS Lymphocytes/Leukocytes Auto (Bld) [Pure # fraction] 2.0 E9/L Normal 1.0 - 4.0 E9/L [facility]eAutoS S Monocytes/100 WBC (Bld) 6.8 % Normal 4.0 - 14.0 % [facility] HemeAutoSS Monocytes/Leukocytes Auto (B ld) [Pure # fraction] 0.7 E9/L Normal 0.2 - 1.0 E9/L [facility]eAuto[facility] Neutrophils/100 WBC (Bld) 72.0 % Normal 36.0 - 75. 0 % [facility]eAutoSS Neutrophils/Leukocytes Auto (Bld) [Pure # fraction] 7.8 E9/L High 2.0 - 7.5 E9/L [facility]eAutoS S HEMATOLOGYOrdered By: Temi Romero on 09-05-2022 Erythrocyte distribution wid th (RBC) [Ratio] 12.7 % Normal 10.9 - 14.2 % [facility] Hematocrit (Bld) [Volume fraction] 34.2 % Normal 34.0 - 46.0 % [facility] Hemoglobin (Bld) [Mass/Vol] 12.3 g/dL Normal 12.0 - 1 6.0 gm/dL [facility] MCH (RBC) [Entitic mass] 31.8 pg Normal 27.0 - 34.0 pg [facility] MCHC (RBC) [Mass/Vol] 35.9 g/dL Normal 31.4 - 36.0 gm /dL [facility] MCV (RBC) [Entitic vol] 88.7 fL Normal 80.0 - 100.0 fL [facility] Platelet mean volume (Bld) [Entitic vol] 9.8 fL Normal 6.4 - 10.8 fL [facility] Platelets (Bld) [#/Vol] 215.0 E9/L Normal 150.0 - 500. 0 E9/L [facility] RBC (Bld) [#/Vol] 3.9 E12/L Low 4.3 - 5.9 E12/L [facility] WBC corrected for nucl RBC A uto (Bld) [#/Vol] 10.9 E9/L Normal 4.0 - 11.0 E9/L [facility] Comment on above: Result Comment: Slid e reviewed by ts. MICRO OTHER TESTSOrdered By: Valerie Li on 09-05-2022 Rapid COV Int NEG Ctl Pass (09/05/22 8:22 PM) Normal [facility] Rapid COV Int POS Ctl Pass (09/05/22 8:22 PM) Normal [facility] Man Sero SARS-CoV+SARS-C oV-2 (COVID-19) Ag IA.rapid Ql (Resp) Detected 2 *ABN* (09/05/22 8:22 PM) Invalid Interpretation Code Not Detected [facility] Comment on above: Result Comment: Resu lts Called To Berna Cook RN/ER By AGNIESZKA And Read Back For Confirmation On 09/05/2022 21:14:20 EST Results Verified By Repeat Analysis PT & PTTon 09-05-2022 aPTT Coag (PPP) [Time] 27.1 second(s) Normal 25.1-36.5 [facility] Comment on above: Result Comment: Para meter 15 days - 4 weeks 1 - 5 months 6 - 11 months 1 - 5 years 6 - 10 years 11 - 17 years PTT Mean: 35.4 (27.6-45.6) Mean: 33.5 (24.8-40.7) Mean: 32.4 (25.1-40.7) Mean: 31.6 (24.0-39.2) Mean: 31.6 (26.9-38.7) Mean: 31.0 (24.6-38.4) Pediatric Reference ranges were obtained from a study by Delvis Ambriz et al. prepared from 1437 samples obtained at 7 different centers using the same coagulation reagent and instrumentation as [facility]. Currently there are no coagulation studies available worldwide for children to 14 days, and no normal ranges. Heparin therapeutic range (represented by Anti- Factor Xa activity of 0.2 - 0.4 U/mL) corresponds to PTT of 56.6 - 109.0 sec. Performed By: #### 2 875005, 40619626, 23410065, 0756372, 56582363, 92624580, 4369262 ####[facility] [address] [place] [address] INR Coag (PPP) [Relative time] 0.9 {INR} Invalid Interpretation Code [facility] Comment on above: Result Comment: INR results are specifically intended to assess patients stabilized on long-term Anticoagulation therapy suggested INR?s ?Less Intensive Anticoagulation? 2.0 ? 3.0Conventional Range 3.0 ? 4.5 Performed By: #### 2 872806, 69698001, 50664043, 6498390, 20367580, 28288268, 2745295 ####[facility] [address] [place] [address] PT Coag (PPP) [Time] 10.3 second(s) Normal 9.4-12.5 [facility] Comment on above: Result Comment: 15 d ays - 4 weeks 1 - 5 months 6 -11 months 1 ? 5 years 6 ? 10 years 11 -17 years Mean: 11.2 (9.5 ? 12.6) Mean: 11.0 (9.7 ? 12.8) Mean: 11.0 (9.8 ? 13.0) Mean: 11.3 (9.9 ? 13.4) Mean: 11.7 (10.0 ? 14.6) Mean: 11.8 (10.0 - 14.1) Pediatric Reference ranges were obtained from a study by Delvis Ambriz et al. prepared from 1437 samples obtained at 7 different centers using the same coagulation reagent and instrumentation as [facility]. Currently there are no coagulation studies available worldwide for children to 14 days, and no normal ranges. Performed By: #### 2 653146, [id number], 02518215, 5394424, 64714403, 02589583, 9097128 ####[facility] [address] [place] [address] Rapid COVID Antigen ([facility])on 09-05-2022 Rapid COV Int NEG Ctl Pass Normal [facility] Comment on above: Performed By: #### 2 [id number] ####[address] [place] [address] Rapid COV Int POS Ctl Pass Normal [facility] Comment on above: Performed By: #### 2 [id number] ####[address] [address] SARS-CoV+SARS-CoV-2 (COVID-1 9) Ag IA.rapid Ql (Resp) Detected Abnormal Not Detected [facility] Comment on above: Result Comment: Resu lts Called To Berna Cook RN/ER By AGNIESZKA And Read Back For Confirmation On 09/05/2022 21:14:20 ESTResults Verified By Repeat AnalysisThe [employer]? System for Rapid Detection of SARS-CoV-2 is a chromatographic digital immunoassay intended for the direct and qualitative detection of SARS-CoV-2 nucleocapsid antigens in nasal swabs from individuals who are suspected of COVID-19 by their healthcare provider within the first five days of the onset of symptoms. Negative results should be treated as presumptive, do not rule out SARS-CoV-2 infection and should not be used as the sole basis for treatment or patient management decisions, including infection control decisions. Negative results should be considered in the context of a patient?s recent exposures, history and the presence of clinical signs and symptoms consistent with COVID-19, and confirmed with a molecular assay, if necessary, for patient management. For in vitro diagnostic use. In the [place], only for use under an Emergency Use Authorization. In the [place], this test has not been FDA cleared or approved; this test has been authorized by FDA under an EUA for use by authorized laboratories; use by laboratories certified under the CLIA, 42 U.S.C. ?263a, that meet requirements to perform moderate, high, or waived complexity tests and at the Point of Care (POC), i.e., in patient care settings operating under a CLIA Certificate of Waiver, Certificate of Compliance, or Certificate of Accreditation.This test has been authorized only for the detection of proteins from SARS-CoV-2, not for any other viruses or pathogens; and, in the [place], this test is only authorized for the duration of the declaration that circumstances exist justifying the authorization of emergency use of in vitro diagnostics for detection and/or diagnosis of the virus that causes COVID-19 under Section 564(b)(1) of the Act, 21 U.S.C. ? 360bbb-3(b)(1), unless the authorization is terminated or revoked sooner. Performed By: #### 2 [id number] ####[place] [address] ADMITTED TO INTENSIVE CARE [facility] FOR CONDITION OF INTEREST:FIND:PT: NO Normal [facility] Comment on above: Performed By: #### 2 [id number] ####[place] [address] EMPLOYED IN A HEALTHCARE SETTING:FIND:PT: NO Nataliya l [facility] Comment on above: Performed By: #### 2 [id number] ####[address] [place] [address] FIRST TEST FOR CONDITION OF INTEREST:FIND:PT: YES Normal [facility] Comment on above: Performed By: #### 2 [id number] ####[place] [address] HAS SYMPTOMS RELATED TO COND ITION OF INTEREST:FIND:PT: YES Normal [facility] Comment on above: Performed By: #### 2 [id number] ####[place] [address] HOSPITALIZED FOR CONDITION O F INTEREST:FIND:PT: NO Normal [facility] Comment on above: Performed By: #### 2 [id number] ####[place] [address] STATUS:FIND:PT: NO Normal [facility] Comment on above: Performed By: #### 2 [id number] ####[place] [address] RESIDES IN A CONGREGATE CARE SETTING:FIND:PT: NO N ormal [facility] Comment on above: Performed By: #### 2 [id number] ####[place] [address] Troponin 0 Hr.on 09-05-2022 Troponin I.cardiac [Mass/Vol] 4.70 pg/mL Low 10.10- 27.10 [facility] Comment on above: Result Comment: The 95% CI (Confidence Interval) PPV (Positive Predictive Value) for myocardial infarction in females is 38 pg/mL, in males 51 pg/mL. The results should be used in conjunction with clinical conditions of myocardial infarction.(Access High Sensitivity Troponin I Instructions For Use, Ziggy Regina, May 2018) Performed By: #### 2 520779, 31735748, 11503648, 7466151, 55982063, 74683362, 8939818 ####[facility] [address] [place] [address] eGFRon 09-05-2022 GFR/1.73 sq M.predicted jean g blacks MDRD (S/P/Bld) [Vol rate/Area] mL/min/{1.73_m2} Normal >=59 [facility] Comment on above: Order Comment: Order added by Discern Expert. Result Comment: eGFR is race adjusted. AA=. Performed By: #### 2 285250, 73581084, 01735297, 3343756, 81179922, 39228322, 6092564 ####[address] [place] [address] GFR/1.73 sq M.predicted jean g non-blacks MDRD (S/P/Bld) [Vol rate/Area] mL/min/{1.73_m2} Normal >=59 [facility] Comment on above: Order Comment: Order added by Discern Expert. Result Comment: Coil Inspector lucy kidney disease could be indicated at eGFR's of less than 60 mL/min/1.73m2. Kidney failure is indicated at less than 15 mL/min/1.73m2. Performed By: #### 2 329390, 24879128, 46430764, 3520534, 21329933, 14973620, 2472882 ####[address] [place] [address] Coding Summary.on 09-04-2022 Coding Summary. Normal [facility] Nursing Assessmenton 022 Nursing Assessment [id number]:[address] [facility] Physician Orderon 09-04-2022 Physician Order [id number]#1.00CD:[address] [facility] ABO/Rhon 08-31-2022 ABO/Rh Positive Invalid Interpretation Code [facility] Comment on above: Performed By: #### 1 4635546, 9249889, 71417890, 67124705 ####[facility] [address] [place] [address] ABO/Rh History Checkon 08-31 ABO/Rh History Check Verified Hx Blood Type Normal [facility] Comment on above: Performed By: #### 1 6199127, 5498491, 80816160, 55917527 ####[facility] [address] [place] [address] ABSCon 08-31-2022 ABSC Gel Interp Negative Normal [facility] Comment on above: Performed By: #### 1 7860862, 8657118, 14634191, 59539929 ####[facility] [address] [place] [address] BUNon 08-31-2022 Urea nitrogen [Mass/Vol] 8 mg/dL Normal 5-21 [facility] Comment on above: Performed By: #### 2 022378, 6960082, 93531279, 7400634, 56532173, 1182770, 9775790, 8970112, 9380861, 8853799, 21480009 ####[facility] [address] [place] [address] Blood Bank ID#on 08-31-2022 BBID# [id number] Invalid Interpretation Code [facility] Comment on above: Performed By: #### 1 4612223, 7895250, 73860982, 36011705 ####[facility] [address] [place] [address] CBC w/Indiceson 08-31-2022 Erythrocyte distribution wid th (RBC) [Ratio] 12.9 % Normal 10.9-14.2 [facility] Comment on above: Performed By: #### 2 764390, 8275717, 48155692, 0010196, 55359646, 3835348, 6658492, 8941393, 4807172, 9565777, 20181246 ####[facility] [address] [place] [address] Hematocrit (Bld) [Volume fraction] 35.0 % Normal 34.0-46.0 [facility] Comment on above: Performed By: #### 2 872605, 6218814, 22444496, 9981989, 68055395, 8177908, 3301344, 2242790, 5638830, 3512857, 47233835 ####[facility] [address] [place] [address] Hemoglobin (Bld) [Mass/Vol] 12.0 g/dL Normal 12.0-16. 0 [facility] Comment on above: Performed By: #### 2 863188, 9849076, 81202539, 4910071, 89867311, 9562777, 6990706, 4632290, 9646128, 6089531, 17021762 ####[facility] [address] [place] [address] MCH (RBC) [Entitic mass] 30.7 pg Normal 27.0-34.0 [facility] Comment on above: Performed By: #### 2 181777, 2319633, 63294159, 9800358, 71742643, 8496865, 2428231, 8837128, 3025318, 9609676, 67837543 ####[address] [address] MCHC (RBC) [Mass/Vol] 34.4 g/dL Normal 31.4-36.0 [facility] Comment on above: Performed By: #### 2 422077, 0326617, 77729239, 9915276, 31962741, 8070936, 3642460, 3160805, 2324792, 3974750, 62490953 ####[facility] [address] [place] [address] MCV (RBC) [Entitic vol] 89.5 fL Normal 80.0-100.0 [facility] Comment on above: Performed By: #### 2 059512, 9222562, 24294852, 4401730, 24738775, 6662871, 4298098, 6206254, 8248289, 3132899, 13232215 ####[facility] [address] [place] [address] Platelet mean volume (Bld) [Entitic vol] 9.8 fL Normal 6.4-10.8 [facility] Comment on above: Performed By: #### 2 668503, 8157421, 14970570, 8029218, 82014856, 9364670, 3205539, 2906726, 8665760, 8110138, 31925344 ####[facility] [address] [place] [address] Platelets (Bld) [#/Vol] 234.0 E9/L Normal 150.0-500.0 [facility] Comment on above: Performed By: #### 2 499900, 0848927, 77852821, 3662707, 58750091, 4959899, 1603407, 1081889, 7716159, 9567436, 33387533 ####[facility] [address] [place] [address] RBC (Bld) [#/Vol] 3.9 E12/L Low 4.3-5.9 [facility] Comment on above: Performed By: #### 2 979723, 4331282, 68509543, 1192469, 73381293, 5380476, 8762679, 5510220, 1444596, 2735461, 69956276 ####[facility] [address] [place] [address] WBC corrected for nucl RBC A uto (Bld) [#/Vol] 12.6 E9/L High 4.0-11.0 [facility] Comment on above: Performed By: #### 2 137224, 4388411, 81716349, 8405888, 07396408, 9887591, 1329620, 1281260, 9911371, 8438661, 27877672 ####[address] [place] [address] Creatinineon 08-31-2022 Creatinine [Mass/Vol] 0.7 mg/dL Normal 0.5-1.3 [facility] Comment on above: Performed By: #### 2 054627, 5320802, 27317930, 1779023, 99812577, 7778327, 4767588, 8651916, 9259275, 4409743, 86334811 ####[facility] [address] [place] [address] Discharge Instructionson Discharge Instructions [id number]#[id number]:[address] [facility] Ethanolon 08-31-2022 Ethanol [Mass/Vol] mg/dL Normal <=7 [facility] Comment on above: Performed By: #### 2 588365 ####[address] [address] FSPon 08-31-2022 Fibrin+Fibrinogen fragments (S) [Mass/Vol] <10 Norm al <10 [facility] Comment on above: Performed By: #### 2 768224, 1014743, 89402189, 4158163, 52579258, 2624361, 7326290, 3522129, 5929937, 6091608, 61585907 ####[facility] [address] [place] [address] Stainon 08-31-2022 FMHV 0 mL Invalid Interpretation Code [facility] Comment on above: Performed By: #### 2 808815, 2634621, 07620929, 0241552, 05303826, 8332604, 0028988, 8779250, 3026908, 4385231, 02955685 ####[facility] [address] [place] [address] Negative Control Negative Normal [facility] Comment on above: Performed By: #### 2 251993, 3770368, 99624050, 0011343, 59859689, 9780735, 2714124, 6392304, 6111691, 1044782, 13178157 ####[address] [place] [address] Fibrinogenon 08-31-2022 Fibrinogen Coag (PPP) [Mass/Vol] 406 mg/dL High 200 -393 [facility] Comment on above: Performed By: #### 2 572847, 4537518, 85725437, 8681493, 81223541, 5033028, 4290370, 1357312, 6604916, 8675889, 39486489 ####[facility] [address] [place] [address] Hep Func Panelon 08-31-2022 Bilirubin.indirect [Mass or moles/Vol] UTC Abnormal 0.1-0.9 [facility] Comment on above: Result Comment: Resu lt verified by Discern Rule. Performed result UT (Unable to Calculate) was sent as an Alpha code due the inability to calculate a valid numeric value. Performed By: #### 2 442729, 7430871, 83983002, 9570211, 60310796, 0841077, 6285013, 7675988, 2994489, 7175543, 41034849 ####[facility] [address] [place] [address] Albumin [Mass/Vol] 2.8 g/dL Low 3.3-5.0 [facility] Comment on above: Performed By: #### 2 148986, 9691832, 65347404, 0994862, 11570378, 0789324, 8644752, 7500935, 2082246, 4151533, 80240626 ####[facility] [address] [place] [address] Albumin/Globulin (S) [Mass conc ratio] 0.7 Low 1.1-2.2 [facility] Comment on above: Performed By: #### 2 113034, 8971483, 92759194, 4801288, 24471493, 1502258, 3637666, 6974992, 0950892, 7160071, 48283923 ####[facility] [address] [place] [address] ALP [Catalytic activity/Vol] 80 Int._Unit/L Normal 21- 98 [facility] Comment on above: Performed By: #### 2 118562, 4692716, 71046105, 8228473, 34679116, 4512115, 1464754, 8346132, 7219839, 3972932, 15969436 ####[facility] [address] [place] [address] ALT No additional P-5'-P [Catalytic activity/Vol] 10 Int._Unit/L Normal 6-46 [facility] Comment on above: Performed By: #### 2 701309, 5279942, 77021942, 8359292, 75922952, 1938213, 4152584, 1823675, 0822934, 1123567, 62425763 ####[address] [address] AST [Catalytic activity/Vol] 16 Int._Unit/L Normal 5-[address] [facility] Comment on above: Performed By: #### 2 714699, 4362430, 30374804, 2685086, 83169666, 7671462, 6572401, 6919728, 7391000, 4523719, 44750164 ####[address] [address] Bilirubin [Mass/Vol] 0.1 mg/dL Normal 0.0-1.1 [facility] Comment on above: Performed By: #### 2 954026, 7887343, 91291968, 0685274, 30171241, 5754111, 8688472, 5180650, 0164778, 9673421, 07562548 ####[facility] [address] [place] [address] Bilirubin.direct [Mass/Vol] mg/dL Normal 0.1-0.4 [facility] Comment on above: Performed By: #### 2 709375, 3224480, 29246471, 9905266, 82335466, 6696968, 7681323, 7807412, 2031126, 8627474, 42619793 ####[address] [address] Globulin (S) [Mass/Vol] 3.8 g/dL Normal 1.4-4.0 F [facility] Comment on above: Performed By: #### 2 959752, 8408700, 02470889, 5631855, 26205809, 8764716, 2407069, 0195784, 6486146, 3849335, 94079771 ####[facility] [address] [place] [address] Protein [Mass/Vol] 6.6 g/dL Normal 6.0-7.8 [facility] Comment on above: Performed By: #### 2 830878, 8985513, 71368149, 8915846, 46751161, 1577183, 3330698, 8354123, 3295766, 0326193, 36073734 ####[facility] [address] [place] [address] Inpatient Clinical Summaryon 08-31-2022 Inpatient Clinical Summary Normal [facility] Inpatient Patient Summaryon 08-31-2022 Inpatient Patient Summary Normal [facility] Lyteson 08-31-2022 Anion gap [Moles/Vol] 13 mmol/L Normal 6-16 [facility] Comment on above: Performed By: #### 2 692187, 0266611, 86561038, 7390436, 92253557, 4470321, 5427865, 9181315, 6780403, 3998668, 68303255 ####[facility] [address] [place] [address] Chloride [Moles/Vol] 104 mmol/L Normal 101-111 [facility] Comment on above: Performed By: #### 2 818836, 5436323, 01265471, 9674398, 02947174, 9606098, 8015919, 4332677, 3020738, 9188951, 97606686 ####[facility] [address] [place] [address] CO2 [Moles/Vol] 22 mmol/L Normal 21-31 [facility] Comment on above: Performed By: #### 2 385695, 4397157, 83248479, 4004064, 42842276, 8424960, 0504651, 9324171, 7011729, 9015305, 39288496 ####[facility] [address] [place] [address] Potassium [Moles/Vol] 3.5 mmol/L Normal 3.5-5.3 [facility] Comment on above: Performed By: #### 2 756907, 3692188, 39541586, 1277552, 47181407, 1306011, 5736039, 6594943, 9252188, 3777159, 89635839 ####[facility] [address] [place] [address] Sodium [Moles/Vol] 135 mmol/L Normal 135-145 [facility] Comment on above: Performed By: #### 2 731240, 4987302, 86459446, 7373733, 35742390, 0708644, 7666499, 2322873, 4106769, 7296690, 08838675 ####[facility] [address] [place] [address] Nursing Assessmenton 022 Nursing Assessment [id number]:[address] [facility] PT & PTTon 08-31-2022 aPTT Coag (PPP) [Time] 26.3 second(s) Normal 25.1-36.5 [facility] Comment on above: Result Comment: Para meter 15 days - 4 weeks 1 - 5 months 6 - 11 months 1 - 5 years 6 - 10 years 11 - 17 years PTT Mean: 35.4 (27.6-45.6) Mean: 33.5 (24.8-40.7) Mean: 32.4 (25.1-40.7) Mean: 31.6 (24.0-39.2) Mean: 31.6 (26.9-38.7) Mean: 31.0 (24.6-38.4) Pediatric Reference ranges were obtained from a study by guerrero Garcias. prepared from 1437 samples obtained at 7 different centers using the same coagulation reagent and instrumentation as [facility]. Currently there are no coagulation studies available worldwide for children to 14 days, and no normal ranges. Heparin therapeutic range (represented by Anti- Factor Xa activity of 0.2 - 0.4 U/mL) corresponds to PTT of 56.6 - 109.0 sec. Performed By: #### 2 254781, 2364520, 77781545, 2669292, 78800421, 9953084, 8007271, 0826447, 5077396, 9880788, 55835873 ####[facility] [address] [place] [address] INR Coag (PPP) [Relative time] 0.9 {INR} Invalid Interpretation Code [facility] Comment on above: Result Comment: INR results are specifically intended to assess patients stabilized on long-term Anticoagulation therapy suggested INR?s ?Less Intensive Anticoagulation? 2.0 ? 3.0Conventional Range 3.0 ? 4.5 Performed By: #### 2 479151, 4556574, 79372521, 4506397, 76362133, 7733694, 7118722, 3102332, 5062008, 2038698, 87406555 ####[facility] [address] [place] [address] PT Coag (PPP) [Time] 10.2 second(s) Normal 9.4-12.5 [facility] Comment on above: Result Comment: 15 d ays - 4 weeks 1 - 5 months 6 -11 months 1 ? 5 years 6 ? 10 years 11 -17 years Mean: 11.2 (9.5 ? 12.6) Mean: 11.0 (9.7 ? 12.8) Mean: 11.0 (9.8 ? 13.0) Mean: 11.3 (9.9 ? 13.4) Mean: 11.7 (10.0 ? 14.6) Mean: 11.8 (10.0 - 14.1) Pediatric Reference ranges were obtained from a study by guerrero Garcias. prepared from 1437 samples obtained at 7 different centers using the same coagulation reagent and instrumentation as [facility]. Currently there are no coagulation studies available worldwide for children to 14 days, and no normal ranges. Performed By: #### 2 [id number], [id number], [id number], [id number], [id number], 4337458, 1920866, 2139410, 2839368, 2373426, [id number] ####[facility] [address] [place] [address] U Drug Screenon 08-31-2022 Amphetamines Screen method > 1000 ng/mL Ql (U) Negative Normal Negative [facility] Comment on above: Result Comment: Nega tive Cutoff: <1000 ng/mL Performed By: #### 2 [id number], [id number] ####[facility] [address] [place] [place] [address] Barbiturates Screen Ql (U) Negative Normal Negative [facility] Comment on above: Result Comment: Nega tive Cutoff: <200 ng/mL Performed By: #### 2 160940, [id number] ####[facility] [address] [place] [place] [address] Benzodiazepines Ql (U) Negative Normal Negative [facility] Comment on above: Result Comment: Nega tive Cutoff: <200 ng/mL Performed By: #### 2 057141, [id number] ####[facility] [address] [place] [address] Cocaine Ql (U) Negative Normal Negative [facility] Comment on above: Result Comment: Nega tive Cutoff: <300 ng/mL Performed By: #### 2 000942, [id number] ####[facility] [address] [place] [address] Opiates Screen Ql (U) Negative Normal Negative [facility] Comment on above: Result Comment: Nega tive Cutoff: <300 ng/mL Performed By: #### 2 442348, [id number] ####[facility] [address] [place] [address] Phencyclidine Screen method >25 ng/mL Ql (U) Negative Normal Negative [facility] Comment on above: Result Comment: Nega tive Cutoff: <25 ng/mLThese drug screen results are to be used for medical (i.e., treatment) purposes only. Unconfirmed drug screening results must not be used for non-medical purposes (e.g., employment testing, legal testing). Performed By: #### 2 726723, [id number] ####[address] [place] [address] Tetrahydrocannabinol Screen method >50 ng/mL Ql (U) Negative Normal Negative [facility] Comment on above: Result Comment: Nega tive Cutoff: <50 ng/mL Performed By: #### 2 943153, [id number] ####[address] [address] UA With Cult Reflexon 2021 Bacteria LM Ql (Urine sed) TRACE Normal Trace [facility] Comment on above: Performed By: #### 2 550392, [id number] ####[address] [address] Bilirubin Ql (U) Negative Normal Negative [facility] Comment on above: Performed By: #### 2 986607, [id number] ####[address] [address] Clarity (U) CLEAR Normal Clear [facility] Comment on above: Performed By: #### 2 508945, [id number] ####[facility] [address] [place] [address] Color (U) YELLOW Normal Yellow [facility] Comment on above: Performed By: #### 2 494619, [id number] ####[address] [place] [address] Epithelial cells.squamous LM .HPF (Urine sed) [#/Area] 0-2 Normal 0-2 [facility] Comment on above: Performed By: #### 2 323152, [id number] ####[address] [place] [address] Glucose Test strip (U) [Mass/Vol] Negative Normal Negative [facility] Comment on above: Performed By: #### 2 090997, [id number] ####[facility] [address] [place] [address] Hemoglobin Ql (U) Negative Normal Negative [facility] Comment on above: Performed By: #### 2 861851, [id number] ####[facility] [address] [place] [address] Ketones (U) [Mass/Vol] Negative Normal Negative [facility] Comment on above: Performed By: #### 2 246180, [id number] ####[facility] [address] [place] [address] [place].plasma/[place].RBC (Bld) [Mass ratio] 0-3 N ormal 0-3 [facility] Comment on above: Performed By: #### 2 069243, [id number] ####[facility] [address] [place] [address] Nitrite Ql (U) Negative Normal Negative [facility] Comment on above: Performed By: #### 2 611060, [id number] ####[facility] [address] [place] [address] pH (U) 6.0 [pH] Invalid Interpretation Code 5.0-9.0 [facility] Comment on above: Performed By: #### 2 479666, [id number] ####[facility] [address] [place] [address] Protein (U) [Mass/Vol] Negative Normal Negative [facility] Comment on above: Performed By: #### 2 512458, [id number] ####[facility] [address] [place] [address] Specific gravity (U) [Rel density] 1.010 Invalid Interpretation Code 1.005-1.030 [facility] Comment on above: Performed By: #### 2 189016, [id number] ####[facility] [address] [place] [address] Type of Urine collection method Clean Catch Normal [facility] Comment on above: Performed By: #### 2 585503, [id number] ####[facility] [address] [place] [address] Urobilinogen Qn (U) 0.2 {Rola'U}/dL Normal 0.0-1.0 [facility] Comment on above: Performed By: #### 2 958986, [id number] ####[facility] [address] [place] [address] WBC Auto Ql (U) Negative Normal Negative [facility] Comment on above: Performed By: #### 2 063627, [id number] ####[facility] [address] [place] [address] WBC LM.HPF (Urine sed) [#/Area] 0-5 Normal 0-5 [facility] Comment on above: Performed By: #### 2 433970, [id number] ####[facility] [address] [place] [address] Uric Acidon 08-31-2022 Urate [Mass/Vol] 5.0 mg/dL Normal 2.2-7.4 [facility] Comment on above: Performed By: #### 2 889085, 5261608, 72003460, 9822626, 54146319, 0447780, 1292868, 6566649, 7559298, 7300340, 34780867 ####[facility] [address] [place] [address] eGFRon 08-31-2022 GFR/1.73 sq M.predicted jean g blacks MDRD (S/P/Bld) [Vol rate/Area] mL/min/{1.73_m2} Normal >=59 [facility] Comment on above: Order Comment: Order added by Discern Expert. Result Comment: eGFR is race adjusted. AA=. Performed By: #### 2 300215, 8452507, 56128387, 3655935, 96379595, 1975836, 3681961, 1423108, 8052964, 6270400, 61626180 ####[facility] [address] [place] [address] GFR/1.73 sq M.predicted jean g non-blacks MDRD (S/P/Bld) [Vol rate/Area] mL/min/{1.73_m2} Normal >=59 [facility] Comment on above: Order Comment: Order added by Discern Expert. Result Comment: Coil Inspector lucy kidney disease could be indicated at eGFR's of less than 60 mL/min/1.73m2. Kidney failure is indicated at less than 15 mL/min/1.73m2. Performed By: #### 2 799735, 0849309, 79590298, 4592265, 22039834, 4319130, 4423389, 7324885, 7808223, 4643943, 11842211 ####[facility] [address] [place] [address] BLOOD BANKOrdered By: Naldo Li on 08-30-2022 ABO/Rh Interp Positive Invalid Interpretation Code FT BB Subsection ABSC Gel Interp Negative (08/30/22 11:51 PM) Normal [facility] BB Subsection FMHV 0 mL Invalid Interpretation Code [facility] Man Sero CHEMISTRYOrdered By: SYSTEM SYSTEM on 08-30-2022 Albumin [Mass/Vol] 2.8 g/dL Low 3.3 - 5.0 gm/dL [facility] Albumin/Globulin [Mass ratio] 0.7 {ratio} Low 1.1 - 2.2 [facility] ALP [Catalytic activity/Vol] 80 [iU]/d Normal 21 - 98 Int._Unit/L [facility] ALT No additional P-5'-P [Catalytic activity/Vol] 10 [iU]/d Normal 6 - 46 Int._Unit/L [facility] Anion gap [Moles/Vol] 13 mmol/L Normal 6 - 16 mEq/L F [facility] AST [Catalytic activity/Vol] 16 [iU]/d Normal 5 - 43 Int._Unit/L [facility] Bilirubin [Mass/Vol] 0.1 mg/dL Normal 0.0 - 1 .1 mg/dL [facility] Bilirubin.direct [Mass/Vol] mg/dL Normal 0.1 - 0.4 mg/dL [facility] Bilirubin.indirect [Mass or moles/Vol] Unable to Calculate mg/dL Invalid Interpretation Code 0.1 - 0.9 mg/dL [facility] Chloride [Moles/Vol] 104 mmol/L Normal 101 - 1 11 mmol/L [facility] CO2 [Moles/Vol] 22 mmol/L Normal 21 - 31 mmol/L [facility] Creatinine [Mass/Vol] 0.7 mg/dL Normal 0.5 - 1.3 mg/dL [facility] Ethanol [Mass/Vol] mg/dL Normal <=7mg/dL [facility] R emisol GFR/1.73 sq M.predicted among blacks MDRD (S/P/Bld) [Vol rate/Area] mL/min/1.73 m2 Normal >=59mL/min/1. 73 m2 [facility] Chem S GFR/1.73 sq M.predicted among non-blacks MDRD (S/P/Bld) [Vol rate/Area] mL/min/1.73 m2 Normal >=59mL/min/1. 73 m2 [facility] Chem S Globulin (S) [Mass/Vol] 3.8 g/dL Normal 1.4 - 4.0 gm/dL [facility] Potassium [Moles/Vol] 3.5 mmol/L Normal 3.5 - 5.3 mmol/L [facility] Protein [Mass/Vol] 6.6 g/dL Normal 6.0 - 7.8 gm/dL [facility] Sodium [Moles/Vol] 135 mmol/L Normal 135 - 145 mmol/L [facility] Urate [Mass/Vol] 5.0 mg/dL Normal 2.2 - 7.4 mg/dL [facility] Urea nitrogen [Mass/Vol] 8 mg/dL Normal 5 - 21 mg/d L [facility] Amphetamines Screen method >1000 ng/mL Ql (U) Negative (08/30/22 9:45 PM) Normal Negative [facility] Barbiturates Screen Ql (U) Negative (08/30/22 9:45 PM) Normal Negative [facility] Benzodiazepines Ql (U) Negative (08/30/22 9:45 PM) Normal Negative [facility] Cocaine Ql (U) Negative (08/30/22 9:45 PM) Normal Negative [facility] Opiates Screen Ql (U) Negative (08/30/22 9:45 PM) Normal Negative [facility] Phencyclidine Screen method >25 ng/mL Ql (U) Negative (08/30/22 9:45 PM) Normal Negative [facility] Tetrahydrocannabinol Screen method >50 ng/mL Ql (U) Negative (08/30/22 9:45 PM) Normal Negative [facility] COAGULATIONOrdered By: Yamile Li on 08-30-2022 aPTT Coag (PPP) [Time] 26.3 s Normal 25.1 - 36.5 second(s) [facility] Fibrin+Fibrinogen fragments (S) [Mass/Vol] <10 (08/30/22 11:51 PM) Normal <10 [facility] Man Sero Fibrinogen Coag (PPP) [Mass/Vol] 406 mg/dL High 200 - 393 mg/dL [facility] INR Coag (PPP) [Relative time] 0.9 {INR} Invalid Interpretation Code [facility] PT Coag (PPP) [Time] 10.2 s Normal 9.4 - 12.5 second(s) [facility] Auto Coag Consent for Treatmenton 08-15 Consent for Treatment [id number] [facility] HEMATOLOGYOrdered By: Naldo Li on 08-30-2022 Erythrocyte distribution wid th (RBC) [Ratio] 12.9 % Normal 10.9 - 14.2 % [facility] HemeAutoSS Hematocrit (Bld) [Volume fraction] 35.0 % Normal 34.0 - 46.0 % [facility]eAutoSS Hemoglobin (Bld) [Mass/Vol] 12.0 g/dL Normal 12.0 - 1 6.0 gm/dL [facility]eAutoSS MCH (RBC) [Entitic mass] 30.7 pg Normal 27.0 - 34.0 pg [facility]eAutoSS MCHC (RBC) [Mass/Vol] 34.4 g/dL Normal 31.4 - 36.0 gm /dL [facility]eAuto[facility] MCV (RBC) [Entitic vol] 89.5 fL Normal 80.0 - 100.0 fL [facility] Platelet mean volume (Bld) [Entitic vol] 9.8 fL Normal 6.4 - 10.8 fL [facility]eAutoSS Platelets (Bld) [#/Vol] 234.0 E9/L Normal 150.0 - 500. 0 E9/L [facility]eAutoSS RBC (Bld) [#/Vol] 3.9 E12/L Low 4.3 - 5.9 E12/L [facility]eAuto[facility] WBC corrected for nucl RBC A uto (Bld) [#/Vol] 12.6 E9/L High 4.0 - 11.0 E9/L [facility] HemeAuto[facility] URINALYSISOrdered By: Naldo Li on 08-30-2022 Bacteria LM Ql (Urine sed) Trace /HPF Normal Trace/HPF [facility] UA Auto SS Bilirubin Ql (U) Negative (08/30/22 9:45 PM) Normal Negative [facility] UA Auto SS Clarity (U) Clear (08/30/22 9:45 PM) Normal Clear [facility] UA Auto SS Color (U) Yellow (08/30/22 9:45 PM) Normal Yellow [facility] UA Auto SS Epithelial cells.squamous LM.HPF (Urine sed) [#/Area] 0-2 /HPF Normal 0-2/HPF [facility] UA Auto SS Glucose Test strip (U) [Mass/Vol] Negative (08/30/22 9:45 PM) Normal Negative [facility] UA Auto SS Hemoglobin Ql (U) Negative (08/30/22 9:45 PM) Normal Negative [facility] UA Auto SS Ketones (U) [Mass/Vol] Negative (08/30/22 9:45 PM) Normal Negative [facility] UA Auto SS [place].plasma/Lithi um.RBC (Bld) [Mass ratio] 0-3 /HPF Normal 0-3/HPF [facility] UA Auto SS Nitrite Ql (U) Negative (08/30/22 9:45 PM) Normal Negative [facility] UA Auto SS pH (U) 6.0 *NA* (08/30/22 9:45 PM) Invalid Interpretation Code 5.0 - 9.0 [facility] UA Auto SS Protein (U) [Mass/Vol] Negative (08/30/22 9:45 PM) Normal Negative [facility] UA Auto SS Specific gravity (U) [Rel density] 1.010 *NA* (08/30/22 9:45 PM) Invalid Interpretation Code 1.005 - 1.030 [facility] UA Auto SS UA Spec Desc Clean Catch (08/30/22 9:45 PM) Normal [facility] UA Auto SS Urobilinogen Qn (U) 0.3654247 {Rola'U}/dL Normal 0.0 - 1.0 EU/dL [facility] UA Auto SS WBC Auto Ql (U) Negative (08/30/22 9:45 PM) Normal Negative [facility] UA Auto SS WBC LM.HPF (Urine sed) [#/Area] 0-5 /HPF Normal 0-5/HPF [facility] UA Auto SS Coding Summary.on 08-28-2022 Coding Summary. Normal [facility] BLOOD BANKOrdered By: Janet Reyes on 08-22-2022 ABO/Rh Interp Positive Invalid Interpretation Code [facility] BB Subsection ABSC Gel Interp Negative (08/22/22 4:03 PM) Normal [facility] BB Subsection FMHV 0 mL Invalid Interpretation Code [facility] Man Sero CHEMISTRYOrdered By: SYSTEM SYSTEM on 08-22-2022 Albumin [Mass/Vol] 2.7 g/dL Low 3.3 - 5.0 gm/dL [facility] Albumin/Globulin [Mass ratio] 0.7 {ratio} Low 1.1 - 2.2 [facility] ALP [Catalytic activity/Vol] 77 [iU]/d Normal 21 - 98 Int._Unit/L [facility] ALT No additional P-5'-P [Catalytic activity/Vol] 13 [iU]/d Normal 6 - 46 Int._Unit/L [facility] Anion gap [Moles/Vol] 13 mmol/L Normal 6 - 16 mEq/L F [facility] AST [Catalytic activity/Vol] 18 [iU]/d Normal 5 - 43 Int._Unit/L [facility] Bilirubin [Mass/Vol] 0.1 mg/dL Normal 0.0 - 1 .1 mg/dL [facility] Bilirubin.direct [Mass/Vol] mg/dL Normal 0.1 - 0.4 mg/dL [facility] Bilirubin.indirect [Mass or moles/Vol] Unable to Calculate mg/dL Invalid Interpretation Code 0.1 - 0.9 mg/dL [facility] Chloride [Moles/Vol] 102 mmol/L Normal 101 - 1 11 mmol/L [facility] CO2 [Moles/Vol] 22 mmol/L Normal 21 - 31 mmol/L [facility] Creatinine [Mass/Vol] 0.6 mg/dL Normal 0.5 - 1.3 mg/dL [facility] GFR/1.73 sq M.predicted among blacks MDRD (S/P/Bld) [Vol rate/Area] mL/min/1.73 m2 Normal >=59mL/min/1. 73 m2 [facility] Chem S GFR/1.73 sq M.predicted among non-blacks MDRD (S/P/Bld) [Vol rate/Area] mL/min/1.73 m2 Normal >=59mL/min/1. 73 m2 FT Chem S Globulin (S) [Mass/Vol] 3.7 g/dL Normal 1.4 - 4.0 gm/dL [facility] Potassium [Moles/Vol] 3.2 mmol/L Low 3.5 - 5.3 mmol/L [facility] Protein [Mass/Vol] 6.4 g/dL Normal 6.0 - 7.8 gm/dL [facility] Sodium [Moles/Vol] 134 mmol/L Low 135 - 145 mmol/L [facility] Urate [Mass/Vol] 4.4 mg/dL Normal 2.2 - 7.4 mg/dL [facility] Urea nitrogen [Mass/Vol] mg/dL Normal 5 - 21 mg/d L [facility] Amphetamines Screen method >1000 ng/mL Ql (U) Negative (08/22/22 3:48 PM) Normal Negative [facility] Barbiturates Screen Ql (U) Negative (08/22/22 3:48 PM) Normal Negative [facility] Benzodiazepines Ql (U) Negative (08/22/22 3:48 PM) Normal Negative [facility] Cocaine Ql (U) Negative (08/22/22 3:48 PM) Normal Negative [facility] Opiates Screen Ql (U) Negative (08/22/22 3:48 PM) Normal Negative [facility] Phencyclidine Screen method >25 ng/mL Ql (U) Negative (08/22/22 3:48 PM) Normal Negative [facility] Tetrahydrocannabinol Screen method >50 ng/mL Ql (U) Negative (08/22/22 3:48 PM) Normal Negative [facility] COAGULATIONOrdered By: Jose Miguel De La Cruz on 08-22-2022 aPTT Coag (PPP) [Time] 26.7 s Normal 25.1 - 36.5 second(s) [facility] Fibrin+Fibrinogen fragments (S) [Mass/Vol] <10 (08/22/22 4:03 PM) Normal <10 [facility] Man Sero Fibrinogen Coag (PPP) [Mass/Vol] 520 mg/dL High 200 - 393 mg/dL [facility] Auto [facility] INR Coag (PPP) [Relative time] 1.0 {INR} Invalid Interpretation Code [facility] Auto [facility] PT Coag (PPP) [Time] 10.5 s Normal 9.4 - 12.5 second(s) [facility] Auto [facility]ag HEMATOLOGYOrdered By: Janet Reyes on 08-22-2022 Erythrocyte distribution wid th (RBC) [Ratio] 12.8 % Normal 10.9 - 14.2 % [facility] Hematocrit (Bld) [Volume fraction] 35.3 % Normal 34.0 - 46.0 % [facility] Hemoglobin (Bld) [Mass/Vol] 12.1 g/dL Normal 12.0 - 1 6.0 gm/dL [facility] MCH (RBC) [Entitic mass] 31.1 pg Normal 27.0 - 34.0 pg [facility] MCHC (RBC) [Mass/Vol] 34.2 g/dL Normal 31.4 - 36.0 gm /dL [facility] MCV (RBC) [Entitic vol] 90.8 fL Normal 80.0 - 100.0 fL [facility] Platelet mean volume (Bld) [Entitic vol] 10.2 fL Normal 6.4 - 10.8 fL [facility] Platelets (Bld) [#/Vol] 226.0 E9/L Normal 150.0 - 500. 0 E9/L [facility] RBC (Bld) [#/Vol] 3.9 E12/L Low 4.3 - 5.9 E12/L [facility] WBC corrected for nucl RBC A uto (Bld) [#/Vol] 11.7 E9/L High 4.0 - 11.0 E9/L [facility] URINALYSISOrdered By: Jose Miguel nelson on 08-22-2022 Bilirubin Ql (U) Negative (08/22/22 3:48 PM) Normal Negative [facility] UA Auto SS Clarity (U) Clear (08/22/22 3:48 PM) Normal Clear [facility] UA Auto SS Color (U) Yellow (08/22/22 3:48 PM) Normal Yellow [facility] UA Auto SS Epithelial cells.squamous LM.HPF (Urine sed) [#/Area] 3-4 /HPF Normal 0-2/HPF [facility] UA Auto SS Glucose Test strip (U) [Mass/Vol] Negative (08/22/22 3:48 PM) Normal Negative [facility] UA Auto SS Hemoglobin Ql (U) Negative (08/22/22 3:48 PM) Normal Negative [facility] UA Auto SS Ketones (U) [Mass/Vol] Negative (08/22/22 3:48 PM) Normal Negative [facility] UA Auto SS [place].plasma/Lithi um.RBC (Bld) [Mass ratio] 0-3 /HPF Normal 0-3/HPF [facility] UA Auto SS Nitrite Ql (U) Negative (08/22/22 3:48 PM) Normal Negative [facility] UA Auto SS pH (U) 6.5 *NA* (08/22/22 3:48 PM) Invalid Interpretation Code 5.0 - 9.0 [facility] UA Auto SS Protein (U) [Mass/Vol] Negative (08/22/22 3:48 PM) Normal Negative [facility] UA Auto SS Specific gravity (U) [Rel density] <=1.005 *NA* (08/22/22 3:48 PM) Invalid Interpretation Code 1.005 - 1.030 [facility] UA Auto SS UA Spec Desc Clean Catch (08/22/22 3:48 PM) Normal [facility] UA Auto SS Urobilinogen Qn (U) 0.9692654 {Rola'U}/dL Normal 0.0 - 1.0 EU/dL [facility] UA Auto SS WBC Auto Ql (U) Trace *ABN* (08/22/22 3:48 PM) Invalid Interpretation Code Negative [facility] UA Auto SS WBC LM.HPF (Urine sed) [#/Area] 0-5 /HPF Normal 0-5/HPF [facility] UA Auto SS URINALYSISOrdered By: Jeanette Castle on 08-18-2022 Bacteria LM Ql (Urine sed) 1+ /HPF Invalid Interpretation Code Trace/HPF [facility] UA Auto SS Bilirubin Ql (U) Negative (08/18/22 4:08 AM) Normal Negative [facility] UA Auto SS Clarity (U) Cloudy *ABN* (08/18/22 4:08 AM) Invalid Interpretation Code Clear [facility] UA Auto SS Color (U) Yellow (08/18/22 4:08 AM) Normal Yellow [facility] UA Auto SS Crystals LM Ql (Urine sed) Present (08/18/22 4:08 AM) Normal [facility] UA Auto SS Epithelial cells.squamous LM.HPF (Urine sed) [#/Area] 9-10 /HPF Normal 0-2/HPF [facility] UA Auto SS Glucose Test strip (U) [Mass/Vol] Negative (08/18/22 4:08 AM) Normal Negative [facility] UA Auto SS Hemoglobin Ql (U) Negative (08/18/22 4:08 AM) Normal Negative [facility] UA Auto SS Ketones (U) [Mass/Vol] Negative (08/18/22 4:08 AM) Normal Negative [facility] UA Auto SS [place].plasma/Lithi um.RBC (Bld) [Mass ratio] 0-3 /HPF Normal 0-3/HPF [facility] UA Auto SS Mucus Ql (Urine sed) 1+ (08/18/22 4:08 AM) Normal [facility] UA Auto SS Nitrite Ql (U) Negative (08/18/22 4:08 AM) Normal Negative [facility] UA Auto SS pH (U) 6.0 *NA* (08/18/22 4:08 AM) Invalid Interpretation Code 5.0 - 9.0 [facility] UA Auto SS Protein (U) [Mass/Vol] Negative (08/18/22 4:08 AM) Normal Negative [facility] UA Auto SS Specific gravity (U) [Rel density] 1.020 *NA* (08/18/22 4:08 AM) Invalid Interpretation Code 1.005 - 1.030 [facility] UA Auto SS UA Spec Desc Clean Catch (08/18/22 4:08 AM) Normal [facility] UA Auto SS Urobilinogen Qn (U) 0.2901875 {Rola'U}/dL Normal 0.0 - 1.0 EU/dL [facility] UA Auto SS WBC Auto Ql (U) 2+ *ABN* (08/18/22 4:08 AM) Invalid Interpretation Code Negative [facility] UA Auto SS WBC LM.HPF (Urine sed) [#/Area] 6-15 /HPF Invalid Interpretation Code 0-5/HPF [facility]A Auto SS BLOOD BANKOrdered By: Tom Avelar on 08-13-2022 ABO/Rh Interp Positive Invalid Interpretation Code FT BB Subsection ABSC Gel Interp Negative (08/13/22 6:26 PM) Normal [facility] BB Subsection FMHV 0 mL Invalid Interpretation Code [facility] Man Sero CHEMISTRYOrdered By: SYSTEM SYSTEM on 08-13-2022 Albumin [Mass/Vol] 2.8 g/dL Low 3.3 - 5.0 gm/dL [facility] Albumin/Globulin [Mass ratio] 0.8 {ratio} Low 1.1 - 2.2 [facility] ALP [Catalytic activity/Vol] 73 [iU]/d Normal 21 - 98 Int._Unit/L [facility] ALT No additional P-5'-P [Catalytic activity/Vol] 12 [iU]/d Normal 6 - 46 Int._Unit/L [facility] Anion gap [Moles/Vol] 13 mmol/L Normal 6 - 16 mEq/L F [facility] AST [Catalytic activity/Vol] 19 [iU]/d Normal 5 - 43 Int._Unit/L [facility] Bilirubin [Mass/Vol] 0.3 mg/dL Normal 0.0 - 1 .1 mg/dL [facility] Bilirubin.direct [Mass/Vol] mg/dL Normal 0.1 - 0.4 mg/dL [facility] Bilirubin.indirect [Mass or moles/Vol] Unable to Calculate mg/dL Invalid Interpretation Code 0.1 - 0.9 mg/dL [facility] Chloride [Moles/Vol] 105 mmol/L Normal 101 - 1 11 mmol/L [facility] CO2 [Moles/Vol] 21 mmol/L Normal 21 - 31 mmol/L [facility] Creatinine [Mass/Vol] 0.9 mg/dL Normal 0.5 - 1.3 mg/dL [facility] GFR/1.73 sq M.predicted among blacks MDRD (S/P/Bld) [Vol rate/Area] mL/min/1.73 m2 Normal >=59mL/min/1. 73 m2 [facility] Chem S GFR/1.73 sq M.predicted among non-blacks MDRD (S/P/Bld) [Vol rate/Area] mL/min/1.73 m2 Normal >=59mL/min/1. 73 m2 [facility] Chem S Globulin (S) [Mass/Vol] 3.7 g/dL Normal 1.4 - 4.0 gm/dL [facility] Potassium [Moles/Vol] 3.5 mmol/L Normal 3.5 - 5.3 mmol/L [facility] Protein [Mass/Vol] 6.5 g/dL Normal 6.0 - 7.8 gm/dL [facility] Sodium [Moles/Vol] 135 mmol/L Normal 135 - 145 mmol/L [facility] TSH Qn 3.21 m[IU]/L Normal 0.34 - 5.60 mcIU/mL [facility] Urate [Mass/Vol] 4.3 mg/dL Normal 2.2 - 7.4 mg/dL [facility] Urea nitrogen [Mass/Vol] 6 mg/dL Normal 5 - 21 mg/d L [facility] Amphetamines Screen method >1000 ng/mL Ql (U) Negative (08/13/22 5:58 PM) Normal Negative [facility] Barbiturates Screen Ql (U) Negative (08/13/22 5:58 PM) Normal Negative [facility] Benzodiazepines Ql (U) Negative (08/13/22 5:58 PM) Normal Negative [facility] Cocaine Ql (U) Negative (08/13/22 5:58 PM) Normal Negative [facility] Opiates Screen Ql (U) Negative (08/13/22 5:58 PM) Normal Negative [facility] Phencyclidine Screen method >25 ng/mL Ql (U) Negative (08/13/22 5:58 PM) Normal Negative [facility] Tetrahydrocannabinol Screen method >50 ng/mL Ql (U) Negative (08/13/22 5:58 PM) Normal Negative [facility] Remisol COAGULATIONOrdered By: Jose Miguel De La Cruz on 08-13-2022 aPTT Coag (PPP) [Time] 25.9 s Normal 25.1 - 36.5 second(s) [facility] Auto Coag Fibrin+Fibrinogen fragments (S) [Mass/Vol] <10 (08/13/22 6:26 PM) Normal <10 [facility] Man Sero Fibrinogen Coag (PPP) [Mass/Vol] 420 mg/dL High 200 - 393 mg/dL [facility] INR Coag (PPP) [Relative time] 0.9 {INR} Invalid Interpretation Code [facility] Auto Coag PT Coag (PPP) [Time] 10.0 s Normal 9.4 - 12.5 second(s) [facility] Auto Coag HEMATOLOGYOrdered By: Tom Avelar on 08-13-2022 Erythrocyte distribution wid th (RBC) [Ratio] 12.7 % Normal 10.9 - 14.2 % [facility] HemeAutoSS Hematocrit (Bld) [Volume fraction] 35.6 % Normal 34.0 - 46.0 % [facility]eAutoSS Hemoglobin (Bld) [Mass/Vol] 11.8 g/dL Low 12.0 - 1 6.0 gm/dL [facility] MCH (RBC) [Entitic mass] 30.8 pg Normal 27.0 - 34.0 pg [facility] MCHC (RBC) [Mass/Vol] 33.2 g/dL Normal 31.4 - 36.0 gm /dL [facility] MCV (RBC) [Entitic vol] 92.8 fL Normal 80.0 - 100.0 fL [facility] Platelet mean volume (Bld) [Entitic vol] 9.9 fL Normal 6.4 - 10.8 fL [facility] Platelets (Bld) [#/Vol] 224.0 E9/L Normal 150.0 - 500. 0 E9/L [facility] RBC (Bld) [#/Vol] 3.8 E12/L Low 4.3 - 5.9 E12/L [facility] WBC corrected for nucl RBC A uto (Bld) [#/Vol] 11.3 E9/L High 4.0 - 11.0 E9/L [facility] URINALYSISOrdered By: Jose Miguel nelson on 08-13-2022 Bacteria LM Ql (Urine sed) Trace /HPF Normal Trace/HPF [facility] UA Auto SS Bilirubin Ql (U) Negative (08/13/22 5:58 PM) Normal Negative [facility] UA Auto SS Clarity (U) Clear (08/13/22 5:58 PM) Normal Clear [facility] UA Auto SS Color (U) Yellow (08/13/22 5:58 PM) Normal Yellow [facility] UA Auto SS Crystals LM Ql (Urine sed) Present (08/13/22 5:58 PM) Normal [facility] UA Auto SS Epithelial cells.squamous LM.HPF (Urine sed) [#/Area] 3-4 /HPF Normal 0-2/HPF [facility] UA Auto SS Glucose Test strip (U) [Mass/Vol] Negative (08/13/22 5:58 PM) Normal Negative [facility] UA Auto SS Hemoglobin Ql (U) Negative (08/13/22 5:58 PM) Normal Negative [facility] UA Auto SS Ketones (U) [Mass/Vol] Trace *NA* (08/13/22 5:58 PM) Invalid Interpretation Code Negative [facility] UA Auto SS [place].plasma/Lithi um.RBC (Bld) [Mass ratio] 0-3 /HPF Normal 0-3/HPF [facility] UA Auto SS Mucus Ql (Urine sed) Trace (08/13/22 5:58 PM) Normal [facility] UA Auto SS Nitrite Ql (U) Negative (08/13/22 5:58 PM) Normal Negative [facility] UA Auto SS pH (U) 6.5 *NA* (08/13/22 5:58 PM) Invalid Interpretation Code 5.0 - 9.0 [facility] UA Auto SS Protein (U) [Mass/Vol] Negative (08/13/22 5:58 PM) Normal Negative [facility] UA Auto SS Specific gravity (U) [Rel density] 1.020 *NA* (08/13/22 5:58 PM) Invalid Interpretation Code 1.005 - 1.030 [facility] UA Auto SS UA Spec Desc Clean Catch (08/13/22 5:58 PM) Normal [facility] UA Auto SS Urobilinogen Qn (U) 0.4494703 {Rola'U}/dL Normal 0.0 - 1.0 EU/dL [facility] UA Auto SS WBC Auto Ql (U) Trace *ABN* (08/13/22 5:58 PM) Invalid Interpretation Code Negative [facility] UA Auto SS WBC LM.HPF (Urine sed) [#/Area] 0-5 /HPF Normal 0-5/HPF [facility] UA Auto SS URINALYSISOrdered By: Keila Ring on 07-26-2022 Bacteria LM Ql (Urine sed) Trace /HPF Normal Trace/HPF [facility] UA Auto SS Bilirubin Ql (U) Negative (07/26/22 8:05 AM) Normal Negative [facility] UA Auto SS Clarity (U) Clear (07/26/22 8:05 AM) Normal Clear [facility] UA Auto SS Color (U) Yellow (07/26/22 8:05 AM) Normal Yellow [facility] UA Auto SS Epithelial cells.squamous LM.HPF (Urine sed) [#/Area] 3-4 /HPF Normal 0-2/HPF [facility] UA Auto SS Glucose Test strip (U) [Mass/Vol] Negative (07/26/22 8:05 AM) Normal Negative [facility] UA Auto SS Hemoglobin Ql (U) Negative (07/26/22 8:05 AM) Normal Negative [facility] UA Auto SS Ketones (U) [Mass/Vol] Negative (07/26/22 8:05 AM) Normal Negative [facility] UA Auto SS [place].plasma/Lithi um.RBC (Bld) [Mass ratio] 0-3 /HPF Normal 0-3/HPF [facility] UA Auto SS Nitrite Ql (U) Negative (07/26/22 8:05 AM) Normal Negative [facility] UA Auto SS pH (U) 8.0 *NA* (07/26/22 8:05 AM) Invalid Interpretation Code 5.0 - 9.0 [facility] UA Auto SS Protein (U) [Mass/Vol] Negative (07/26/22 8:05 AM) Normal Negative [facility] UA Auto SS Specific gravity (U) [Rel density] 1.015 *NA* (07/26/22 8:05 AM) Invalid Interpretation Code 1.005 - 1.030 [facility] UA Auto SS UA Spec Desc Clean Catch (07/26/22 8:05 AM) Normal [facility] UA Auto SS Urobilinogen Qn (U) 0.5921173 {Rola'U}/dL Normal 0.0 - 1.0 EU/dL [facility] UA Auto SS WBC Auto Ql (U) Trace *ABN* (07/26/22 8:05 AM) Invalid Interpretation Code Negative [facility] UA Auto SS WBC LM.HPF (Urine sed) [#/Area] 0-5 /HPF Normal 0-5/HPF [facility] UA Auto SS MICRO OTHER TESTSOrdered By: Tonja Carter on 07-17-2022 Influenzae A Ag Negative (07/17/22 9:20 AM) Normal Negative [facility] Man Sero Influenzae B Ag Negative (07/17/22 9:20 AM) Normal Negative [facility] Man Sero Rapid COV Int NEG Ctl Pass (07/17/22 9:20 AM) Normal [facility] Man Sero Rapid COV Int POS Ctl Pass (07/17/22 9:20 AM) Normal [facility] Man Sero SARS-CoV+SARS-CoV-2 (COVID-1 9) Ag IA.rapid Ql (Resp) Not Detected (07/17/22 9:20 AM) Normal Not Detected [facility] Man [facility]ero URINALYSISOrdered By: Tonaj pablo on 07-17-2022 Bacteria LM Ql (Urine sed) 1+ /HPF Invalid Interpretation Code Trace/HPF [facility] UA Auto SS Bilirubin Ql (U) Negative (07/17/22 9:25 AM) Normal Negative [facility] UA Auto SS Clarity (U) Clear (07/17/22 9:25 AM) Normal Clear [facility] UA Auto SS Color (U) Yellow (07/17/22 9:25 AM) Normal Yellow [facility] UA Auto SS Epithelial cells.squamous LM.HPF (Urine sed) [#/Area] 3-4 /HPF Normal 0-2/HPF [facility] UA Auto SS Glucose Test strip (U) [Mass/Vol] Negative (07/17/22 9:25 AM) Normal Negative [facility] UA Auto SS Hemoglobin Ql (U) Negative (07/17/22 9:25 AM) Normal Negative [facility] UA Auto SS Ketones (U) [Mass/Vol] Negative (07/17/22 9:25 AM) Normal Negative [facility] UA Auto SS [place].plasma/Lithi um.RBC (Bld) [Mass ratio] 0-3 /HPF Normal 0-3/HPF [facility] UA Auto SS Nitrite Ql (U) Negative (07/17/22 9:25 AM) Normal Negative [facility] UA Auto SS pH (U) 7.0 *NA* (07/17/22 9:25 AM) Invalid Interpretation Code 5.0 - 9.0 [facility] [place] UA Auto SS Protein (U) [Mass/Vol] Negative (07/17/22 9:25 AM) Normal Negative [facility] [place] UA Auto SS Specific gravity (U) [Rel density] <=1.005 *NA* (07/17/22 9:25 AM) Invalid Interpretation Code 1.005 - 1.030 [facility] [place] UA Auto SS UA Spec Desc Clean Catch (07/17/22 9:25 AM) Normal [facility] [place] UA Auto SS Urobilinogen Qn (U) 0.8007181 {Rola'U}/dL Normal 0.0 - 1.0 EU/dL [facility] [place] UA Auto SS WBC Auto Ql (U) Negative (07/17/22 9:25 AM) Normal Negative [facility] [place] UA Auto SS WBC LM.HPF (Urine sed) [#/Area] 0-5 /HPF Normal 0-5/HPF [facility] [place] UA Auto SS CHEMISTRYOrdered By: SYSTEM SYSTEM on 06-28-2022 Glucose 1 Hr post 50 g gluco se PO [Mass/Vol] 93 mg/dL Normal 55 - 140 mg/dL [facility] [place] Remisol HEMATOLOGYOrdered By: Keila Ring on 06-28-2022 Hematocrit (Bld) [Volume fraction] 35.4 % Normal 3 4.0 - 46.0 % [facility] [place] HemeAutoSS Hemoglobin (Bld) [Mass/Vol] 12.1 g/dL Normal 12.0 - 1 6.0 gm/dL [facility] [place] HemeAutoSS BLOOD BANKOrdered By: Jeanette Castle on 06-19-2022 ABO/Rh Interp Positive Invalid Interpretation Code [facility] [place] BB Subsection ABSC Gel Interp Negative (06/19/22 12:15 AM) Normal [facility] [place] BB Subsection FMHV 0 mL Invalid Interpretation Code [facility] [place] Man Sero CHEMISTRYOrdered By: SYSTEM SYSTEM on 06-19-2022 Albumin [Mass/Vol] 2.9 g/dL Low 3.3 - 5.0 gm/dL [facility] Remisol Albumin/Globulin [Mass ratio] 0.8 {ratio} Low 1.1 - 2.2 [facility] [place] Remisol ALP [Catalytic activity/Vol] 44 [iU]/d Normal 21 - 98 Int._Unit/L [facility] Remisol ALT No additional P-5'-P [Catalytic activity/Vol] 23 [iU]/d Normal 6 - 46 Int._Unit/L [facility] Anion gap [Moles/Vol] 10 mmol/L Normal 6 - 16 mEq/L [facility] Rem[facility] AST [Catalytic activity/Vol] 18 [iU]/d Normal 5 - 43 Int._Unit/L [facility] Remisol Bilirubin [Mass/Vol] 0.2 mg/dL Normal 0.0 - 1.1 mg/dL [facility] Bilirubin.direct [Mass/Vol] mg/dL Normal 0.1 - 0.4 mg/dL [facility] Bilirubin.indirect [Mass or moles/Vol] Unable to Calculate mg/dL Invalid Interpretation Code 0.1 - 0.9 mg/dL [facility] Remisol Chloride [Moles/Vol] 103 mmol/L Normal 101 - 111 mmol/L [facility] CO2 [Moles/Vol] 25 mmol/L Normal 21 - 31 mmol/L [facility] Remisol Creatinine [Mass/Vol] 0.5 mg/dL Normal 0.5 - 1.3 mg/dL [facility] Remisol GFR/1.73 sq M.predicted among blacks MDRD (S/P/Bld) [Vol rate/Area] mL/min/1.73 m2 Normal >=59mL/min/1. 73 m2 [facility] [place] Chem S GFR/1.73 sq M.predicted among non-blacks MDRD (S/P/Bld) [Vol rate/Area] mL/min/1.73 m2 Normal >=59mL/min/1. 73 m2 [facility] [place] Chem S Globulin (S) [Mass/Vol] 3.5 g/dL Normal 1.4 - 4.0 gm/dL [facility] Remisol Potassium [Moles/Vol] 3.3 mmol/L Low 3.5 - 5.3 mmol/L [facility] Protein [Mass/Vol] 6.4 g/dL Normal 6.0 - 7.8 gm/dL [facility]isol Sodium [Moles/Vol] 135 mmol/L Normal 135 - 145 mmol/L [facility]isol Urate [Mass/Vol] 3.5 mg/dL Normal 2.2 - 7.4 mg/dL [facility] Remisol Urea nitrogen [Mass/Vol] 5 mg/dL Normal 5 - 21 mg/dL [facility] Remisol COAGULATIONOrdered By: Davion Castle on 06-19-2022 aPTT Coag (PPP) [Time] 26.9 s Normal 25.1 - 36.5 second(s) [facility] Auto Coag Fibrin+Fibrinogen fragments (S) [Mass/Vol] <10 (06/19/22 12:15 AM) Normal <10 [facility] [place] Man Sero Fibrinogen Coag (PPP) [Mass/Vol] 367 mg/dL Normal 200 - 393 mg/dL [facility] Auto Coag INR Coag (PPP) [Relative time] 0.9 {INR} Invalid Interpretation Code [facility] Auto Coag PT Coag (PPP) [Time] 10.3 s Normal 9.4 - 12.5 second(s) [facility] Auto Coag HEMATOLOGYOrdered By: Jeanette Castle on 06-19-2022 Erythrocyte distribution wid th (RBC) [Ratio] 13.5 % Normal 10.9 - 14.2 % [facility] HemeAutoSS Hematocrit (Bld) [Volume fraction] 34.8 % Normal 34.0 - 46.0 % [facility] HemeAutoSS Hemoglobin (Bld) [Mass/Vol] 11.7 g/dL Low 12.0 - 1 6.0 gm/dL [facility] HemeAutoSS MCH (RBC) [Entitic mass] 31.1 pg Normal 27.0 - 34.0 pg FT HemeAutoSS MCHC (RBC) [Mass/Vol] 33.6 g/dL Normal 31.4 - 36.0 gm /dL [facility] HemeAutoSS MCV (RBC) [Entitic vol] 92.7 fL Normal 80.0 - 100.0 fL [facility] HemeAutoSS Platelet mean volume (Bld) [Entitic vol] 8.7 fL Normal 6.4 - 10.8 fL [facility] HemeAutoSS Platelets (Bld) [#/Vol] 202.0 E9/L Normal 150.0 - 500. 0 E9/L [facility] HemeAutoSS RBC (Bld) [#/Vol] 3.8 E12/L Low 4.3 - 5.9 E12/L [facility] HemeAutoSS WBC corrected for nucl RBC A uto (Bld) [#/Vol] 9.0 E9/L Normal 4.0 - 11.0 E9/L [facility] HemeAutoSS CHEMISTRYOrdered By: SYSTEM SYSTEM on 06-18-2022 Amphetamines Screen method > 1000 ng/mL Ql (U) Negative (06/18/22 11:45 PM) Normal Negative [facility] Remisol Barbiturates Screen Ql (U) Negative (06/18/22 11:45 PM) Normal Negative [facility] Remisol Benzodiazepines Ql (U) Negative (06/18/22 11:45 PM) Normal Negative [facility] Buprenorphine Ql (U) Negative (06/18/22 11:45 PM) Normal Negative [facility] Cocaine Ql (U) Negative (06/18/22 11:45 PM) Normal Negative [facility] Opiates Screen Ql (U) Negative (06/18/22 11:45 PM) Normal Negative [facility] Rem[facility] Phencyclidine Screen method >25 ng/mL Ql (U) Negative (06/18/22 11:45 PM) Normal Negative [facility] Remisol Tetrahydrocannabinol Screen method >50 ng/mL Ql (U) Negative (06/18/22 11:45 PM) Normal Negative [facility] Remisol URINALYSISOrdered By: Jeanette Castle on 06-18-2022 Bilirubin Ql (U) Negative (06/18/22 11:45 PM) Normal Negative [facility] UA Auto SS Clarity (U) Clear (06/18/22 11:45 PM) Normal Clear [facility] UA Auto SS Color (U) STRAW Invalid Interpre tation Code [facility] UA Auto SS Epithelial cells.squamous LM.HPF (Urine sed) [#/Area] 0-2 /HPF Normal 0-2/HPF [facility] UA Auto SS Glucose Test strip (U) [Mass/Vol] Negative (06/18/22 11:45 PM) Normal Negative [facility] UA Auto SS Hemoglobin Ql (U) Negative (06/18/22 11:45 PM) Normal Negative [facility] UA Auto SS Ketones (U) [Mass/Vol] Negative (06/18/22 11:45 PM) Normal Negative [facility] UA Auto SS [place].plasma/Lithi um.RBC (Bld) [Mass ratio] 0-3 /HPF Normal 0-3/HPF [facility] UA Auto SS Nitrite Ql (U) Negative (06/18/22 11:45 PM) Normal Negative [facility] UA Auto SS pH (U) 7.0 *NA* (06/18/22 11:45 PM) Invalid Interpretation Code 5.0 - 9.0 [facility] UA Auto SS Protein (U) [Mass/Vol] Negative (06/18/22 11:45 PM) Normal Negative [facility] UA Auto SS Specific gravity (U) [Rel density] <=1.005 *NA* (06/18/22 11:45 PM) Invalid Interpretation Code 1.005 - 1.030 [facility] UA Auto SS UA Spec Desc Clean Catch (06/18/22 11:45 PM) Normal [facility] UA Auto SS Urobilinogen Qn (U) 0.7123326 {Rola'U}/dL Normal 0.0 - 1.0 EU/dL [facility] UA Auto SS WBC Auto Ql (U) Negative (06/18/22 11:45 PM) Normal Negative [facility] UA Auto SS WBC LM.HPF (Urine sed) [#/Area] 0-5 /HPF Normal 0-5/HPF [facility] UA Auto SS URINALYSISOrdered By: Almita cheng on 05-01-2022 Bacteria LM Ql (Urine sed) 1+ /HPF Invalid Interpretation Code Trace/HPF [facility] UA Auto SS Bilirubin Ql (U) Negative (05/01/22 5:20 PM) Normal Negative [facility] UA Auto SS Clarity (U) SL CLOUDY Invalid Interpre tation Code [facility] UA Auto SS Color (U) Yellow (05/01/22 5:20 PM) Normal Yellow [facility] UA Auto SS Epithelial cells.squamous LM.HPF (Urine sed) [#/Area] 5-8 /HPF Normal 0-2/HPF [facility] UA Auto SS Glucose Test strip (U) [Mass/Vol] Negative (05/01/22 5:20 PM) Normal Negative [facility] UA Auto SS Hemoglobin Ql (U) Negative (05/01/22 5:20 PM) Normal Negative [facility] UA Auto SS Ketones (U) [Mass/Vol] Negative (05/01/22 5:20 PM) Normal Negative [facility] UA Auto SS [place].plasma/Lithi um.RBC (Bld) [Mass ratio] 0-3 /HPF Normal 0-3/HPF [facility] UA Auto SS Mucus Ql (Urine sed) Trace (05/01/22 5:20 PM) Normal [facility] UA Auto SS Nitrite Ql (U) Negative (05/01/22 5:20 PM) Normal Negative [facility] UA Auto SS pH (U) 5.5 *NA* (05/01/22 5:20 PM) Invalid Interpretation Code 5.0 - 9.0 [facility] UA Auto SS Protein (U) [Mass/Vol] Trace *ABN* (05/01/22 5:20 PM) Invalid Interpretation Code Negative [facility] UA Auto SS Specific gravity (U) [Rel density] >=1.030 *NA* (05/01/22 5:20 PM) Invalid Interpretation Code 1.005 - 1.030 [facility] UA Auto SS UA Spec Desc Random Urine (05/01/22 5:20 PM) Normal [facility] UA Auto SS Urobilinogen Qn (U) 1.8421982 {Rola'U}/dL Normal 0.0 - 1.0 EU/dL [facility] UA Auto SS WBC Auto Ql (U) Negative (05/01/22 5:20 PM) Normal Negative [facility] UA Auto SS WBC LM.HPF (Urine sed) [#/Area] 0-5 /HPF Normal 0-5/HPF [facility]A Auto SS BLOOD BANKOrdered By: Shayy Medina on 04-02-2022 ABO/Rh Interp Positive Invalid Interpretation Code [facility] [place] BB Subsection ABSC Gel Interp Negative (04/02/22 7:17 AM) Normal [facility] [place] BB Subsection FMHV 0 mL Invalid Interpretation Code [facility] [place] Man Sero CHEMISTRYOrdered By: SYSTEM SYSTEM on 04-02-2022 Albumin [Mass/Vol] 3.5 g/dL Normal 3.3 - 5.0 gm/dL [facility] Remisol Albumin/Globulin [Mass ratio] 1.2 {ratio} Normal 1.1 - 2.2 [facility] Remisol ALP [Catalytic activity/Vol] 27 [iU]/d Normal 21 - 98 Int._Unit/L [facility] Rem[facility] ALT No additional P-5'-P [Catalytic activity/Vol] 10 [iU]/d Normal 6 - 46 Int._Unit/L [facility] Anion gap [Moles/Vol] 10 mmol/L Normal 6 - 16 mEq/L [facility] Remisol AST [Catalytic activity/Vol] 14 [iU]/d Normal 5 - 43 Int._Unit/L [facility] Bilirubin [Mass/Vol] 0.8 mg/dL Normal 0.0 - 1.1 mg/dL [facility] Bilirubin.direct [Mass/Vol] 0.1 mg/dL Normal 0.1 - 0. 4 mg/dL [facility] Bilirubin.indirect [Mass or moles/Vol] 0.7 mg/dL Normal 0.1 - 0.9 mg/dL [facility] Chloride [Moles/Vol] 106 mmol/L Normal 101 - 111 mmol/ L [facility] CO2 [Moles/Vol] 23 mmol/L Normal 21 - 31 mmol/L [facility] Creatinine [Mass/Vol] 0.7 mg/dL Normal 0.5 - 1.3 mg/d L [facility] Remisol GFR/1.73 sq M.predicted jean g blacks MDRD (S/P/Bld) [Vol rate/Area] mL/min/1.73 m2 Normal >=59mL/min/1.73 m2 [facility] Chem S GFR/1.73 sq M.predicted jean g non-blacks MDRD (S/P/Bld) [Vol rate/Area] mL/min/1.73 m2 Normal >=59mL/min/1.73 m2 [facility] [place] Chem S Globulin (S) [Mass/Vol] 3.0 g/dL Normal 1.4 - 4.0 gm /dL [facility] Remisol Potassium [Moles/Vol] 3.2 mmol/L Low 3.5 - 5.3 mmol /L [facility] Remisol Protein [Mass/Vol] 6.5 g/dL Normal 6.0 - 7.8 gm/dL [facility] Remisol Sodium [Moles/Vol] 136 mmol/L Normal 135 - 145 mmol/L [facility] Urate [Mass/Vol] 3.7 mg/dL Normal 2.2 - 7.4 mg/dL [facility] C Remisol Urea nitrogen [Mass/Vol] 5 mg/dL Normal 5 - 21 mg/d L [facility] Remisol COAGULATIONOrdered By: Temi Romero on 04-02-2022 aPTT Coag (PPP) [Time] 30.1 s Normal 25.1 - 36.5 second(s) FT Auto Coag Fibrin+Fibrinogen fragments (S) [Mass/Vol] <10 (04/02/22 7:17 AM) Normal <10 [facility] Man Sero Fibrinogen Coag (PPP) [Mass/Vol] 399 mg/dL High 200 - 393 mg/dL [facility] Auto Coag INR Coag (PPP) [Relative time] 1.1 {INR} Invalid Interpretation Code [facility] Auto Coag PT Coag (PPP) [Time] 12.8 s Normal 10.2 - 12.9 second(s) [facility] Auto Coag HEMATOLOGYOrdered By: Shayy Medina on 04-02-2022 Erythrocyte distribution wid th (RBC) [Ratio] 13.2 % Normal 10.9 - 14.2 % [facility] HemeAutoSS Hematocrit (Bld) [Volume fraction] 37.3 % Normal 34.0 - 46.0 % [facility] HemeAutoSS Hemoglobin (Bld) [Mass/Vol] 12.8 g/dL Normal 12.0 - 1 6.0 gm/dL [facility] HemeAutoSS MCH (RBC) [Entitic mass] 31.2 pg Normal 27.0 - 34.0 pg [facility]eAutoSS MCHC (RBC) [Mass/Vol] 34.3 g/dL Normal 31.4 - 36.0 gm /dL [facility]eAutoSS MCV (RBC) [Entitic vol] 91.0 fL Normal 80.0 - 100.0 fL [facility]eAutoSS Platelet mean volume (Bld) [Entitic vol] 8.7 fL Normal 6.4 - 10.8 fL [facility] HemeAutoSS Platelets (Bld) [#/Vol] 183.0 E9/L Normal 150.0 - 500. 0 E9/L [facility] HemeAutoSS RBC (Bld) [#/Vol] 4.1 E12/L Low 4.3 - 5.9 E12/L [facility] HemeAutoSS WBC corrected for nucl RBC A uto (Bld) [#/Vol] 8.4 E9/L Normal 4.0 - 11.0 E9/L [facility] HemeAutoSS URINALYSISOrdered By: Temi Romero on 04-02-2022 Bacteria LM Ql (Urine sed) 1+ /HPF Invalid Interpretation Code Trace/HPF [facility] UA Auto SS Bilirubin Ql (U) Negative (04/02/22 6:05 AM) Normal Negative [facility] UA Auto SS Clarity (U) Clear (04/02/22 6:05 AM) Normal Clear [facility] UA Auto SS Color (U) Yellow (04/02/22 6:05 AM) Normal Yellow [facility] UA Auto SS Epithelial cells.squamous LM.HPF (Urine sed) [#/Area] /[HPF] Normal 0-2/HPF [facility] UA Auto SS Glucose Test strip (U) [Mass/Vol] Negative (04/02/22 6:05 AM) Normal Negative [facility] UA Auto SS Hemoglobin Ql (U) 3+ *ABN* (04/02/22 6:05 AM) Invalid Interpretation Code Negative [facility] UA Auto SS Ketones (U) [Mass/Vol] Negative (04/02/22 6:05 AM) Normal Negative [facility] UA Auto SS [place].plasma/Lithi um.RBC (Bld) [Mass ratio] 0-3 /HPF Normal 0-3/HPF [facility] UA Auto SS Nitrite Ql (U) Negative (04/02/22 6:05 AM) Normal Negative [facility] UA Auto SS pH (U) 6.5 *NA* (04/02/22 6:05 AM) Invalid Interpretation Code 5.0 - 9.0 [facility] UA Auto SS Protein (U) [Mass/Vol] Negative (04/02/22 6:05 AM) Normal Negative [facility] UA Auto SS Specific gravity (U) [Rel density] <=1.005 *NA* (04/02/22 6:05 AM) Invalid Interpretation Code 1.005 - 1.030 [facility] UA Auto SS UA Spec Desc Random Urine (04/02/22 6:05 AM) Normal [facility] UA Auto SS Urobilinogen Qn (U) 0.2174018 {Rola'U}/dL Normal 0.0 - 1.0 EU/dL [facility] UA Auto SS WBC Auto Ql (U) 2+ *ABN* (04/02/22 6:05 AM) Invalid Interpretation Code Negative [facility] UA Auto SS WBC LM.HPF (Urine sed) [#/Area] /[HPF] Invalid Interpretation Code 0-5/HPF [facility] UA Auto SS URINALYSISOrdered By: Almita cheng on 03-23-2022 Bilirubin Ql (U) Negative (03/23/22 7:54 PM) Normal Negative [facility] UA Auto SS Clarity (U) Clear (03/23/22 7:54 PM) Normal Clear [facility] UA Auto SS Color (U) Yellow (03/23/22 7:54 PM) Normal Yellow [facility] UA Auto SS Crystals LM Ql (Urine sed) Present (03/23/22 7:54 PM) Normal [facility] UA Auto SS Epithelial cells.squamous LM.HPF (Urine sed) [#/Area] 0-2 /HPF Normal 0-2/HPF [facility] UA Auto SS Glucose Test strip (U) [Mass/Vol] Negative (03/23/22 7:54 PM) Normal Negative [facility] UA Auto SS Hemoglobin Ql (U) Negative (03/23/22 7:54 PM) Normal Negative [facility] UA Auto SS Ketones (U) [Mass/Vol] Negative (03/23/22 7:54 PM) Normal Negative [facility] UA Auto SS [place].plasma/Lithi um.RBC (Bld) [Mass ratio] 0-3 /HPF Normal 0-3/HPF [facility] UA Auto SS Nitrite Ql (U) Negative (03/23/22 7:54 PM) Normal Negative [facility] UA Auto SS pH (U) 6.0 *NA* (03/23/22 7:54 PM) Invalid Interpretation Code 5.0 - 9.0 [facility] UA Auto SS Protein (U) [Mass/Vol] Negative (03/23/22 7:54 PM) Normal Negative [facility] UA Auto SS Specific gravity (U) [Rel density] >=1.030 *NA* (03/23/22 7:54 PM) Invalid Interpretation Code 1.005 - 1.030 [facility] UA Auto SS UA Spec Desc Clean Catch (03/23/22 7:54 PM) Normal [facility] [place] UA Auto SS Urobilinogen Qn (U) 0.9321163 {Rola'U}/dL Normal 0.0 - 1.0 EU/dL [facility] UA Auto SS WBC Auto Ql (U) Negative (03/23/22 7:54 PM) Normal Negative [facility] UA Auto SS WBC LM.HPF (Urine sed) [#/Area] 0-5 /HPF Normal 0-5/HPF [facility] UA Auto SS CHEMISTRYOrdered By: SYSTEM SYSTEM on 03-16-2022 TSH Qn 2.08 m[IU]/L Normal 0.34 - 5.60 mcIU/mL [facility] Remisol BLOOD BANKOrdered By: Keila Ring on 02-15-2022 ABO/Rh Interp Positive Invalid Interpretation Code [facility] BB Subsection ABSC Gel Interp Negative (02/15/22 12:00 PM) Normal FT BB Subsection CHEMISTRYOrdered By: SYSTEM SYSTEM on 02-15-2022 TSH Qn 6.70 m[IU]/L High 0.34 - 5.60 mcIU/mL [facility] Remisol HEMATOLOGYOrdered By: Keila Ring on 02-15-2022 Erythrocyte distribution wid th (RBC) [Ratio] 14.3 % High 10.9 - 14.2 % [facility] HemeAutoSS Hematocrit (Bld) [Volume fraction] 38.7 % Normal 34.0 - 46.0 % [facility]eAutoSS Hemoglobin (Bld) [Mass/Vol] 13.1 g/dL Normal 12.0 - 1 6.0 gm/dL [facility]eAutoSS MCH (RBC) [Entitic mass] 31.5 pg Normal 27.0 - 34.0 pg [facility]eAutoSS MCHC (RBC) [Mass/Vol] 33.8 g/dL Normal 31.4 - 36.0 gm /dL [facility]eAutoSS MCV (RBC) [Entitic vol] 93.4 fL Normal 80.0 - 100.0 fL [facility]eAutoSS Platelet mean volume (Bld) [Entitic vol] 8.3 fL Normal 6.4 - 10.8 fL [facility]eAutoSS Platelets (Bld) [#/Vol] 248.0 E9/L Normal 150.0 - 500. 0 E9/L [facility]eAutoSS RBC (Bld) [#/Vol] 4.1 E12/L Low 4.3 - 5.9 E12/L [facility] HemeAutoSS WBC corrected for nucl RBC A uto (Bld) [#/Vol] 6.7 E9/L Normal 4.0 - 11.0 E9/L [facility] HemeAutoSS Reference Laboratory Testing Ordered By: Stephanie Diana on 02-15-2022 Test Code [id number] Invalid Interpretation Code [facility] SendOutsSS Test Name IG PAP CTNG HPV Invalid Interpretation Code [facility] [place] SendOutsSS Homer 05-05-2021 CNPN Telephone ([employer]) RHIANNASUSAN PENA ([id number]) 1995 F Date Time Provider Department 05/05/21 MARTHA WEBB During your visit today, we recorded the following information about you: Tucker Bales Tobacco Buyer 05/05/2021 10:37 AM Signed Patient left message today cancelling her follow up for tomorrow because she couldn't have her GES scan done today, she said that they didn't have the order for the water. I called Nuclear medicine department where she was scheduled today to see if they were missing an order as they usually call ahead of time if something is missing or a wrong order is placed. I read the cancel reason for the pt on her appt desk and it said she did not want to wait the length of the test. When in got ahold of the department they said they went back and forth with the patient and they said that they had correct orders but the patient did not want to wait the length of the test with ensure would have been 4 hours and with just water would have been one hour and that she just walked out at that point. I called and left a message for the patient asking her if she wants to reschedule her follow up and the test, also that they had the correct orders for the test but that she didn't want to wait. Martha Webb MD 05/05/2021 5:39 PM Signed Thanks for your diligent work on this patient Tucker Bales [employer] 05/24/2021 2:23 PM Signed patient called and left a message today stating she needs to get this figured out she has not eaten in 3 days and cant even drink water now. Patient can be reached at [phone]- please read messages below for refresher Martha Webb MD 05/24/2021 4:30 PM Signed Please advise patient to go to ER for evaluation Tucker Bales [employer] 05/24/2021 4:35 PM Signed Had to leave a message for the patient, left the message to go to ER. Also returned the call to [facility] and spoke to Alejandra that patient needs to go to ER for evalution. Martha Webb MD 05/26/2021 10:21 AM Signed Can you find out if patient went to ER and if so which one so we can get records Tucker Bales [employer] 05/26/2021 3:28 PM Signed Pt did not go to the ER she got called into work says she only ate a slice of cheese in 3 days and that is it. I told her I would let you know and that is why you told her t ogo to the ER to be evaluated and that you still want her to go to the ER. She said ok but she is stuck at work still. Martha Webb MD 05/27/2021 5:12 PM Signed Thanks Correct she needs to go to the ER Allergies As of Date: 05/05/2021 Noted Allergy Reaction PENICILLINS 03/10/2021 2 - Rash Date Reviewed: 04/01/2021 Reviewed by: Odette Agosto MD - Fully Assessed Reason for Visit: Patient Update [1234] Prescriptions as of 05/27/2021 - amitriptyline (ELAVIL) 10 mg tablet Take 1 tab at bed x 1 week, then take 2 tabs at bed x 1 week, then 3 tabs at bed and continue this dose - rizatriptan (MAXALT-POWDERER) 10 mg disintegrating tablet Take 1 tablet by mouth as needed for Migraine Headache (see administration instructions). AT ONSET OF HEADACHE. MAY REPEAT AFTER 2 HOURS. DO NOT EXCEED 30 MG PER DAY. Problem List As Of Date: 05/05/2021 (None) Encounter Status:[facility] SUSAN BRO ([id number]) 1995 F Date Time Provider Department 04/07/21 MARTHA WEBB During your visit today, we recorded the following information about you: Tucker Bales [employer] 04/07/2021 12:31 PM Signed [facility] called and they need the GES solid orde rplaced even though she has to use ensure, please sign order in this encounter Allergies As of Date: 04/07/2021 Noted Allergy Reaction PENICILLINS 03/10/2021 2 - Rash Date Reviewed: 04/01/2021 Reviewed by: Odette Agosto MD - Fully Assessed Reason for Visit: Orders [681] Visit Diagnosis:Nausea [R11.0] Order(s):NM GASTRIC EMPTYING SOLID [[id number]] Order #: [id number] FUTURE Prescriptions as of 04/07/2021 Sig: AMITRIPTYLINE 10 MG TABLET Take 1 tab at bed x 1 week, t* RIZATRIPTAN 10 MG DISINTEGRAT* Take 1 tablet by mouth as nee* Problem List As Of Date: 04/07/2021 (None) Encounter Status:Closed by MARTHA WEBB on 04/07/21 [facility] 04-04-2021 CNPN Telephone (GSTCON) SUSAN BRO ([id number]) 1995 F Date Time Provider Department 04/04/21 MARTHA WEBB During your visit today, we recorded the following information about you: Tucker Baels Tobacco Buyer 04/04/2021 1:40 PM Signed Patient called and is still waiting for you to place the order for her GES with ensure, she cant eat the eggs and toast Martha Webb MD 04/04/2021 4:48 PM Signed Let patient know I placed the order Tucker Bales Tobacco Buyer 04/05/2021 11:41 AM Signed Can you place again,m it is not showing up in the correct place for the call center to be able to see it, please sign the order I have in this encounter Allergies As of Date: 04/04/2021 Noted Allergy Reaction PENICILLINS 03/10/2021 2 - Rash Date Reviewed: 04/01/2021 Reviewed by: Odette Agosto MD - Fully Assessed Reason for Visit: Orders [681] Visit Diagnosis:Nausea [R11.0] Order(s):NM GASTRIC EMPTYING LIQUID [[id number]] Order #: [id number] FUTURE Prescriptions as of 04/04/2021 Sig: AMITRIPTYLINE 10 MG TABLET Take 1 tab at bed x 1 week, t* RIZATRIPTAN 10 MG DISINTEGRAT* Take 1 tablet by mouth as nee* Problem List As Of Date: 04/04/2021 (None) Encounter Status:Closed by MARTHA WEBB on 04/05/21 [facility] CNOVon 04-01-2021 CNOV Office Visit (NHMNS2 ) SUSAN BRO ([id number]) 1995 F Date Time Provider Department 04/01/21 8:00 AM BERT NEGRETE [facility] During your visit today, we recorded the following information about you: Pulse Blood pressure Weight Height 72/minute 111/67 70.9 kg 1.626 m Last Period 02/23/21 Rigoberto Zimmer Ma 04/01/2021 7:54 AM Addendum Please start taking Elavil 10 mg and increase weekly if your headaches are not improved with the following schedule: Week 1: Take 10 mg (one tablet) daily at bedtime Week 2: Take 20 mg (two tablets) daily at bedtime Week 3: Take 30 mg (three tablets) daily at bedtime When you get a severe headache take Rizatriptan ODT 10 mg at onset of headache. Avoid taking more than 2 times per week or more than 10 times per month CHRONIC DAILY HEADACHE (CDH) You are being treated, or near the verge of requiring treatment, for chronic daily headaches (any headache greater than 15 days per month). There are many types of chronic daily headaches, including those associated with other diseases, or those unassociated with any other medical problem. The most common variety of chronic daily headache is the previously episodic or intermittent migraine headache which has transformed into a chronic headache (defined as any headache occurring 15 or more days per month). This is what you may have. It occurs in the setting of overuse of acute headache medications. This is known as Medication Overuse Headache (MOH), or Rebound Headache. WE RECOMMEND THE FOLLOWIN. You will not begin to improve until you stop all immediate relief pain relievers for at least 3 months. These include all galk-ndg-bqbvfct medications, triptans, narcotics, and butalbital containing medications as outlined above. Your headache often gets worse as you discontinue these medications. Depending on your medication, dose and frequency, you should wean off the offending medication(s) as follows: Decrease the Ibuprofen as follows: -Week 1: Decrease to no more than 6 days per week. -Week 2: Decrease to no more than 5 days per week. -Week 3: Decrease to no more than 4 days per week. -Week 4: Decrease to no more than 3 days per week. -Week 5: Decrease to no more than 2 days per week. -Week 6: Decrease to no more than 1 days per week, and then stop. Headache Preventive Treatment: Please keep in mind that it takes 4-6 weeks for the medication to start working well and 2-3 months at the appropriate dose before deciding if it will be useful or not. If it is not helping at all by this time, then we will discuss other medications to try. Supplements may take 3-6 months until you see full effect. Natural supplements: Magnesium Oxide 500 mg at bed Coenzyme Q10 300 mg in AM Vitamin B2- 200 mg twice a day Feverfew 50 mg twice a day Vitamins and herbs that show potential Magnesium: Magnesium (250 mg twice a day or 500 mg at bed) has a relaxant effect on smooth muscles such as blood vessels. Individuals suffering from frequent or daily headache usually have low magnesium levels which can be increase with daily supplementation of 400-750 mg. Three trials found 40-90% average headache reduction when used as a preventative. Magnesium also demonstrated the benefit in menstrually related migraine. Magnesium is part of the messenger system in the serotonin cascade and it is a good muscle relaxant. It is also useful for constipation which can be a side effect of other medications used to treat migraine. Good sources include nuts, whole grains, and tomatoes. Magnesium comes in many different forms: Magnesium glycinate is a good choice for those with a sensitive stomach who have gastrointestinal side effects such as diarrhea with other forms of magnesium. It is anecdotally also helpful with anxiety and sleep. Magnesium threonate also has low risk of gastrointestinal side effects and anecdotally helpful with cognitive function and brain fog symptoms. Magnesium malate has low gastrointestinal side effects and is reportedly more energizing and anecdotally often helpful in fibromyalgia and chronic fatigue syndrome. Magnesium citrate is one of the most studied, popular, and well-absorbed forms of magnesium. It can also be mixed easily with liquids if you can't take pills. However, it comes with a higher risk of diarrhea and gastrointestinal side effects, although this could be helpful for those with constipation. Magnesium oxide is also well studied, cheap, and often used for heartburn and indigestion. However, it is not well absorbed and can have some laxative side effects as well, so can also be helpful for constipation. Riboflavin (vitamin B 2) 200 mg twice a day. This vitamin assists nerve cells in the production of ATP a principal energy storing molecule. It is necessary for many chemical reactions in the body. There h (more content not included)... Normal [facility] 03-22-2021 CNPN Telephone (GSTCON) SUSAN BRO ([id number]) 1995 F Date Time Provider Department 03/22/21 MARTHA WEBB During your visit today, we recorded the following information about you: Tucker Bales Tobacco Buyer 03/22/2021 2:28 PM Signed Received: Today MD Eusebia Banks [facility]; Tucker Bales Tobacco Buyer Let patient know esophagram was normal Next step is gastric emptying study I placed order for gastric emptying study Tucker Bales Tobacco Buyer 03/22/2021 2:28 PM Signed Pt is notified, will schedule the GES Allergies As of Date: 03/22/2021 Noted Allergy Reaction PENICILLINS 03/10/2021 2 - Rash Date Reviewed: 03/10/2021 Reviewed by: Martha Webb MD - Fully Assessed Reason for Visit: Results [95] Problem List As Of Date: 03/22/2021 (None) Encounter Status:Closed by DANII FOURNIER TUCKER on 03/22/21 Normal [facility] XR ESOPHAGRAMon 03-17-2021 XR ESOPHAGRAM * * *Final Report* * * DATE OF EXAM: Mar 17 2021 10:19AM MDX [id number] - XR ESOPHAGRAM / PROCEDURE REASON: multiple diagnoses * * * * Physician Interpretation * * * * EXAMINATION: XR ESOPHAGRAM CLINICAL INFORMATION: 25 years old Female with Weight loss. Intractable vomiting with nausea, unspecified vomiting type. Reflux. TECHNIQUE: A biphasic examination of the esophagus was performed utilizing effervescent granules (E-Z-Gas II - 4 grams), high density barium, and low density barium. A barium sulfate tablet (E-Z-Disk) was administered. Contrast: Oral: 100 mL of EZHD Oral: 250 mL of EZPAQUE Oral: 13 mm barium tablet. Fluoroscopy radiation summary: Fluoroscopy time: 1:43 (min:sec). Air kerma: 12.0 mGy. RESULT: Caliber: Normal. Stricture, Ring, or Web: None. Motility: Normal. Hiatal Hernia: Absent. Gastroesophageal Reflux: None, despite provocative maneuvers including cough, Valsalva, straight leg raise, and water siphon. Gastric Cardia: Normal. Barium Tablet: Passed easily without reproducing symptoms. Other Findings: None. IMPRESSION: Normal esophagram. Patient Support Specialist: LUCITA Transcribe Date/Time: Mar 17 2021 11:15A Dictated by : CRISTÓBAL SALINAS DO This examination was interpreted and the report reviewed and electronically signed by: CRISTÓBAL SALINAS DO on Mar 17 2021 11:18AM EST [id number] [facility] 03-10-2021 CNOV Office Visit (GSTCON ) SUSAN BRO ([id number]) 1995 F Date Time Provider Department 03/10/21 11:15 AM MARTHA WEBB GSTGERBER During your visit today, we recorded the following information about you: Pulse Blood pressure Weight Height 69/minute 108/76 73 kg 1.626 m Martha Webb MD 03/10/2021 12:03 PM Signed This note was created using [employer]. Subjective Susan Bro is a 25 year old female. New patient referral 2nd GI opinion Cc wt loss GI symptoms present for 5 yrs but recently last 6 months her symptoms have dramatically worsened. 90 lbs loss over 6 months Associated w/ loss of appetite Oral intake results in vomiting Emesis = food and thick liquids Emesis occurs immediately post oral intake (within minutes) Denies dysphagia symptom Progressing in nature Abdominal pain located midline non radiating Sharp and achy type pain Nocturnal symptoms of pain present Constipation BOWEL MOVEMENT every 7-10 days Straining occasionally required Denies bloating symptom Tried: Proton pump inhibitor = no improvement in symptom Reglan = no improvement Pepcid = no improvement Esophagogastroduodenoscopy 10/2020 Colonoscopy 10/2020 Do not have results of procedure but pathology results below Attempted esophageal manometry but failed due to inability to pass probe thru either nares History of CCY 2 yrs ago - for symptoms of vomiting Headaches present daily occurrence - frontal area Associated with blurry vision No FHx migraine headaches No history of migraine LEON treatment No history of imitrex treatment No current outpatient medications on file prior to visit. No current facility-administered medications on file prior to visit. Review of Systems Constitutional: Positive for appetite change and unexpected weight change. HENT: Positive for sinus pressure and sinus pain. Negative for ear pain, hearing loss, mouth sores, sore throat and trouble swallowing. Eyes: Positive for visual disturbance. Respiratory: Negative for cough, choking and shortness of breath. Cardiovascular: Negative for chest pain and leg swelling. Gastrointestinal: Positive for abdominal pain, constipation, nausea and vomiting. Negative for blood in stool. Genitourinary: Negative for difficulty urinating, hematuria and menstrual problem. Musculoskeletal: Positive for back pain. Negative for arthralgias and joint swelling. Skin: Positive for rash (right foot). Negative for color change. Neurological: Positive for weakness (of the legs) and headaches. Hematological: Bruises/bleeds easily. Psychiatric/Behavioral: Positive for dysphoric mood. Negative for self-injury and suicidal ideas. The patient is not nervous/anxious. Objective BP 108/76 Pulse 69 Ht 162.6 cm (5' 4 ) Wt 73 kg (161 lb) BMI 27.64 kg/m? Physical Exam Vitals reviewed. Constitutional: Appearance: She is well-developed and overweight. HENT: Head: Normocephalic. Right Ear: Hearing normal. Left Ear: Hearing normal. Eyes: General: Lids are normal. No scleral icterus. Comments: glasses Cardiovascular: Rate and Rhythm: Normal rate and regular rhythm. Heart sounds: No murmur heard. Pulmonary: Effort: Pulmonary effort is normal. Breath sounds: Normal breath sounds and air entry. Abdominal: General: Abdomen is flat. Bowel sounds are normal. There is no distension. Palpations: Abdomen is soft. There is no mass. Tenderness: There is abdominal tenderness in the right lower quadrant, suprapubic area and left lower quadrant. There is no guarding or rebound. Musculoskeletal: Right lower leg: No edema. Left lower leg: No edema. Skin: Coloration: Skin is not jaundiced. Findings: Rash (right foot) present. Comments: See Get Images of right dorsal foot rash The purpose of the photo(s) is to optimize the patient's medical care and allow a visual aid. ? ? Photo was taken of:?right foot dorsal Verbal consent was obtained?from patient Neurological: Mental Status: She is alert and oriented to person, place, and time. Psychiatric: Attention and Perception: Attention and perception normal. Mood and Affect: Mood and affect normal. Speech: Speech normal. Behavior: Behavior normal. Behavior is cooperative. Thought Content: Thought content normal. Cognition and Memory: Cognition and memory normal. Judgment: Judgment normal. 02/22/2021 low potassium 02/17/2021 bmp and cbc unremarkable 02/17/[address] Abdomen/Pelvis w/o Contrast on 02-17-2021 CT Abdomen/Pelvis w/o Contrast Exam Date/Time: 02/17/2021 00:39 EDT Reason for Exam: ABDOMINAL PAIN, ACUTE, NONLOCALIZED;Other (please specify) Report IMPRESSION: NO EVIDENCE OF OBSTRUCTIVE UROPATHY. NO EVIDENCE OF ACUTE ABDOMINAL OR PELVIC PATHOLOGY. CLINICAL HISTORY: ABDOMINAL PAIN, ACUTE, NONLOCALIZED. COMPARISON: 09/13/2017. COMMENT: Un (more content not included)... Normal [facility] CNPNon 03-10-2021 CNPN Telephone (GASTLB) SUSAN BRO ([id number]) 1995 F Date Time Provider Department 03/10/21 MARTHA WEBB During your visit today, we recorded the following information about you: Don Trevino Tobacco Buyer 03/10/2021 1:24 PM Signed Failed fax in [employer] from 03/10/2021 regarding this patient from Dr. Webb. Faxed manually to [phone]. Scanned fax confirmation/documents into [employer]. Don Mcdonald Asst Allergies As of Date: 03/10/2021 Noted Allergy Reaction PENICILLINS 03/10/2021 2 - Rash Date Reviewed: 03/10/2021 Reviewed by: Martha Webb MD - Fully Assessed Reason for Visit: Electronic Communication [890] Problem List As Of Date: 03/10/2021 (None) Encounter Status:Closed by DON DIAZ on 03/10/21 Normal [facility] CBC WITH AUTO DIFFERENTIALon 10-14-2020 Basophils (Bld) [#/Vol] 0.06 10*3/uL [facility] Basophils/100 WBC (Bld) 0.6 % [facility] Eosinophils (Bld) [#/Vol] 0.36 10*3/uL [facility] Eosinophils/100 WBC (Bld) 3.4 % [facility] Erythrocyte distribution wid th (RBC) [Entitic vol] 13.2 % 11.6 - 14.8 % [facility] Hematocrit (Bld) [Volume fraction] 43.2 % 3 6 - 46 % [facility] Hemoglobin (Bld) [Mass/Vol] 14.1 g/dL 12 - 16 g/dL [facility] Immature granulocytes (Bld) [#/Vol] 0.03 10*3/uL [facility] Immature granulocytes/100 WBC (Bld) 0.30 % [facility] Comment on above: The IG parameter is the percentage of metamyelocytes, myelocytes and promyelocytes. An immature granulocyte count (IG) of 1% or more suggests the possibility of infection, an IG count of 3% is very likely related to an infection. Interpretation and review of laboratory results Abnormal [facility] Lymphocytes (Bld) [#/Vol] 1.47 10*3/uL [facility] Lymphocytes/100 WBC (Bld) 13.8 % [facility] MCH (RBC) [Entitic mass] 29.6 pg 26 - 34 pg [facility] MCHC (RBC) [Mass/Vol] 32.6 g/dL 31 - 37 g/dL [facility] MCV (RBC) [Entitic vol] 90.6 fL 80 - 100 fL [facility] Monocytes (Bld) [#/Vol] 0.58 10*3/uL [facility] Monocytes/100 WBC (Bld) 5.5 % [facility] Neutrophils (Bld) [#/Vol] 8.12 10*3/uL High [facility] Neutrophils/100 WBC (Bld) 76.4 % [facility] Nucleated RBC (Bld) [#/Vol] 0.00 10*3/uL [facility] Nucleated RBC/100 WBC (Bld) [Ratio] 0.0 % [facility] Platelet mean volume (Bld) [Entitic vol] 10.3 fL 9.4 - 12.4 fL [facility] Platelets (Bld) [#/Vol] 251 10*3/uL [facility] RBC (Bld) [#/Vol] 4.77 10*6/uL [facility] WBC (Bld) [#/Vol] 10.62 10*3/uL [facility] COVID-19/INFLUENZA A,B MOLEC [facility] 10-14-2020 COVID-19/INFLUENZA A,B MOLECULAR SARS-COV-2 (SANA): Not Detected INFLUENZA A (SANA): Not Detected INFLUENZA B (SANA): Not Detected Normal Not Detected [facility] Comment on above: Order Comment: This test was performed under the FDA's Emergency Use Authorization (EUA). Testing was performed using the Sergey alena SARS-CoV-2 AND Influenza A/B Nucleic Acid Test on the alena Sana System. This test has not been approved for use in asymptomatic patients and its performance in this patient population has not been evaluated. Negative results do not rule out the presence of SARS-CoV-2, influenza A, and/or influenza B. Fact sheets for the EUA can be found at the following links: For Healthcare Providers: https://www.fda.gov/media/142344/download For Patients: https://www.fda.gov/media/073605/download Performed By: #### L [id number] #### [facility] [address], [place] [address] Raffy Yadav M.D. [id number] COVID-19/Influenza A,B [facility] 10-14-2020 Influenza A Not Detected [facility] Influenza B Not Detected Not Detected [facility] Interpretation and review of laboratory results Normal [facility] SARS-CoV-2 Not Detected Not Detected [facility] This test was perfor med under the FDA's Emergency Use Authorization (EUA). Testing was performed using the Sergey alena SARS-CoV-2 & Influenza A/B Nucleic Acid Test on the alena Sana System. This test has not been approved for use in asymptomatic patients and its performance in this patient population has not been evaluated. Negative results do not rule out the presence of SARS-CoV-2, influenza A, and/or influenza B. Fact sheets for the EUA can be found at the following links: For Healthcare Providers: https://www.fda.gov/media/398 410/download For Patients: https://www.fda.gov/media/212 622/download [facility] CT HEAD OR BRAIN WITHOUT CON TRASTon 10-14-2020 CT HEAD OR BRAIN WITHOUT CONTRAST EXAMINATION: CT HEAD OR BRAIN WITHOUT CONTRAST HISTORY: ORDERING SYSTEM PROVIDED HISTORY: Dizziness, non-specific, TECHNOLOGIST PROVIDED HISTORY: Illness/Other Reason for exam: dizziness Encounter Type: Initial Additional signs and symptoms: ORDERING SYSTEM PROVIDED DIAGNOSIS CODES: COMPARISON: None available TECHNIQUE: The brain was scanned from the foramen magnum to the vertex utilizing contiguous axial imaging without the use of intravenous contrast. Dose reduction techniques were achieved by using automated exposure control and/or adjustment of mA and/or kV according to patient size and/or use of iterative reconstruction technique FINDINGS: No intracranial hemorrhage or extraaxial fluid collections are identified. Hahn-white matter differentiation is preserved without a focus of abnormal hypodensity. The ventricular system maintains its usual size, shape and position without midline shift. The orbits and paranasal sinuses are grossly unremarkable. IMPRESSION: 1. No acute intracranial hemorrhage, focal edema or mass effect. Workstation ID: [id number] Dictated by: KAREN THAKUR on SunOct 14, 2020 11:28:15 AM EST Transcribed by: KAREN THAKUR on [facility] Oct 14, 2020 11:28:15 AM EST Finalized by: KAREN THAKUR on Susan Oct 14, 2020 11:28:[address] [facility] Comment on above: Order Comment: Injur y/Trauma or Illness?:Illness/Other How long have you had these symptoms (acute/chronic)?:Acute Reason for exam?:dizziness Type of Exam?:Initial Additional signs and symptoms?: EXAMINATION: CT HEAD OR BRAIN WITHOUT CONTRAST HISTORY: ORDERING SYSTEM PROVIDED HISTORY: Dizziness, non-specific, TECHNOLOGIST PROVIDED HISTORY: Illness/Other Reason for exam: dizziness Encounter Type: Initial Additional signs and symptoms: ORDERING SYSTEM PROVIDED DIAGNOSIS CODES: COMPARISON: None available TECHNIQUE: The brain was scanned from the foramen magnum to the vertex utilizing contiguous axial imaging without the use of intravenous contrast. Dose reduction techniques were achieved by using automated exposure control and/or adjustment of mA and/or kV according to patient size and/or use of iterative reconstruction technique FINDINGS: No intracranial hemorrhage or extraaxial fluid collections are identified. Hahn-white matter differentiation is preserved without a focus of abnormal hypodensity. The ventricular system maintains its usual size, shape and position without midline shift. The orbits and paranasal sinuses are grossly unremarkable. [facility] 1. No acute intracra nial hemorrhage, focal edema or mass effect. Workstation ID: [id number] [facility], Rad In [facility] Speechq - 10/14/2020 11:30 AM EST EXAMINATION: CT HEAD OR BRAIN WITHOUT CONTRAST HISTORY: ORDERING SYSTEM PROVIDED HISTORY: Dizziness, non-specific, TECHNOLOGIST PROVIDED HISTORY: Illness/Other Reason for exam: dizziness Encounter Type: Initial Additional signs and symptoms: ORDERING SYSTEM PROVIDED DIAGNOSIS CODES: COMPARISON: None available TECHNIQUE: The brain was scanned from the foramen magnum to the vertex utilizing contiguous axial imaging without the use of intravenous contrast. Dose reduction techniques were achieved by using automated exposure control and/or adjustment of mA and/or kV according to patient size and/or use of iterative reconstruction technique FINDINGS: No intracranial hemorrhage or extraaxial fluid collections are identified. Hahn-white matter differentiation is preserved without a focus of abnormal hypodensity. The ventricular system maintains its usual size, shape and position without midline shift. The orbits and paranasal sinuses are grossly unremarkable. IMPRESSION: 1. No acute intracranial hemorrhage, focal edema or mass effect. Workstation ID: [id number] [facility] Chem 7on 10-14-2020 Anion gap [Moles/Vol] 8 mmol/L Low 10 - 20 mmol/L [facility] Chloride [Moles/Vol] 112 mmol/L High 98 - 108 mmol/L [facility] Creatinine [Mass/Vol] 0.78 mg/dL 0.40 - 1.10 [facility] GFR/1.73 sq M predicted among non-blacks MDRD (S/P/Bld) [Vol rate/Area] The eGFR should be used for monitoring renal function only and not for medication dosing. [facility] GFR/1.73 sq M.predicted CKD-EPI (S/P/Bld) [Vol rate/Area] 105 >=60 mL/min/1.73 m2 [facility] Glucose [Mass/Vol] 78 mg/dL 65 - 99 mg/dL [facility] HCO3 [Moles/Vol] 24 mmol/L 21 - 32 mmol/L [facility] Interpretation and review of laboratory results Abnormal [facility] Potassium [Moles/Vol] 4.5 mmol/L 3.5 - 5.1 mmol /L [facility] Comment on above: moderate hemolysis, result may be falsely increased. Sodium [Moles/Vol] 139 mmol/L 135 - 145 mmol/L [facility] Urea nitrogen [Mass/Vol] 5 mg/dL Low 8 - 25 mg/d L [facility] Urea nitrogen/Creatinine [Mass ratio] 6.4 mg/mg Low [facility] Otheron 10-14-2020 Extra Tube Hold for add-ons. [facility] Comment on above: Auto resulted. URINALYSISon 10-14-2020 Bacteria Auto Ql (U) None Seen None Seen /hpf [facility] Bilirubin Ql (U) Negative Negative [facility] th Clarity Refractometry [place] (U) Cloudy Abnormal Clear [facility] Color (U) Yellow Colorless, Yellow [facility] Epithelial cells.squamous Au to (Urine sed) [#/Area] 18 High [facility] [facility] Glucose Auto test strip (U) [Mass/Vol] Negative Negative mg/dL [facility] Hemoglobin Auto test strip Ql (U) Negative Ne gative [facility] Interpretation and review of laboratory results Abnormal [facility] Ketones (U) [Mass/Vol] Negative Negative mg/d L [facility] Leukocyte esterase Auto test strip Ql (U) Trace Abnormal Negative [facility] Mucus Auto (Urine sed) [#/Area] Many Abnormal None Seen, Rare /lpf [facility] Nitrite Auto test strip Ql (U) Negative Negat juju [facility] pH (U) 8.0 [pH] High [facility] Protein (U) [Mass/Vol] 30 Abnormal Negative mg/d L [facility] Comment on above: False positive resul ts may occur in urines with large amounts of hemoglobin, pH greater than 8.0, contrast medium, or disinfectants including ammonium compounds. RBC Auto (Urine sed) [#/Area] 3 [facility] Specific gravity (U) [Rel density] 1.028 High [facility] Urobilinogen (U) [Mass/Vol] 2.0 mg/dL Abnormal <2.0 [facility] WBC Auto (Urine sed) [#/Area] 3 [facility] Microscopic examinat ion is performed on all urinalysis samples and only positive findings are reported. The test for blood on the chemical analytic portion of urinalysis may also be positive due to hemoglobinuria and myoglobinuria and if red blood cells are present they are quantified by microscopic examination. [facility] hCG Urine, Qualitativeon HCG ( test) Ql (U) Negative Negative [facility] Interpretation and review of laboratory results Normal [facility] ABDOMEN, COMPLT ACUTE SERIES on 09-05-2020 ABDOMEN, COMPLT ACUTE SERIES Patient Name: SUSAN BRO STUDY: ABDOMEN, COMPLT ACUTE SERIES; 09/04/2020 11:54 pm INDICATION: constipation. COMPARISON: None. ACCESSION NUMBER(S): [id number] ORDERING CLINICIAN: BRAYDEN YANEZ TECHNIQUE: Abdomen supine and upright views Chest PA view FINDINGS: ABDOMEN: No pneumoperitoneum or dilated bowel. Cholecystectomy clips are present. Moderate amount of stool overlies the colon. No suspicious abdominal or pelvic calcification. Osseous structures demonstrate no acute abnormality. CHEST: Cardiomediastinal silhouette is normal in size and configuration. No pneumothorax, pulmonary consolidation or pleural effusion. No acute osseous abnormality. IMPRESSION: 1. Nonobstructive bowel gas pattern. Moderate amount of stool overlies the colon. 2. No radiographic evidence of acute cardiopulmonary pathology. Electronically signed by: CANDACE AREVALO MD Normal [facility] BASIC METABOLIC PANELon 08-16 Anion gap [Moles/Vol] 12 mmol/L Normal 10 - 20 [facility] Comment on above: Performed By: #### B MP #### [address] [address] Calcium [Mass/Vol] 9.0 mg/dL Normal 8.6 - 10.3 [facility] Comment on above: Performed By: #### B MP #### [address] [address] Chloride [Moles/Vol] 105 mmol/L Normal 98 - 107 [facility] Comment on above: Performed By: #### B MP #### [address] [address] Creatinine [Mass/Vol] 0.90 mg/dL Normal 0.50 - 1.05 [facility] Comment on above: Performed By: #### B MP #### [address] [address] GFR- AM. >60 Normal >60 [facility] Comment on above: Result Comment: CALC ULATIONS OF ESTIMATED GFR ARE PERFORMED USING THE MDRD STUDY EQUATION FOR THE IDMS-TRACEABLE CREATININE METHODS. CLIN CHEM 2007;53:766-72 Performed By: #### B MP #### [address] [address] GFR-NON AM. >60 Normal >60 [facility] Comment on above: Performed By: #### B MP #### [address] [address] Glucose [Mass/Vol] 96 mg/dL Normal 74 - 99 [facility] Comment on above: Performed By: #### B MP #### [address] [address] HCO3 (Bld) [Moles/Vol] 25 mmol/L Normal 21 - 32 [facility] Comment on above: Performed By: #### B MP #### [address] [address] Potassium [Moles/Vol] 3.5 mmol/L Normal 3.5 - 5.3 [facility] Comment on above: Performed By: #### B MP #### [address] [address] Sodium [Moles/Vol] 138 mmol/L Normal 136 - 145 [facility] Comment on above: Performed By: #### B MP #### [address] [address] Urea nitrogen [Mass/Vol] 7 mg/dL Normal 6 - 23 [facility] Comment on above: Performed By: #### B MP #### [address] [address] CBCon 09-05-2020 Erythrocyte distribution wid th (RBC) [Ratio] 13.2 % Normal 11.5 - 14.5 [facility] Comment on above: Performed By: #### C BC #### [address] [address] Hematocrit (Bld) [Volume fraction] 42.5 % Normal 36.0 - 46.0 [facility] Comment on above: Performed By: #### C BC #### [address] [address] Hemoglobin (Bld) [Mass/Vol] 14.5 g/dL Normal 12.0 - 1 6.0 [facility] Comment on above: Performed By: #### C BC #### [address] [address] MCHC (RBC) [Mass/Vol] 34.2 g/dL Normal 32.0 - 36.0 [facility] Comment on above: Performed By: #### C BC #### [address] [address] MCV (RBC) [Entitic vol] 88 fL Normal 80 - 100 S [facility] Comment on above: Performed By: #### C BC #### [address] [address] Platelets (Bld) [#/Vol] 272 10*3/uL Normal 150 - 450 [facility] Comment on above: Performed By: #### C BC #### [address] [address] RBC (Bld) [#/Vol] 4.86 x10E12/L Normal 4.00 - 5.20 [facility] Comment on above: Performed By: #### C BC #### [address] [address] WBC (Bld) [#/Vol] 12.5 10*3/uL High 4.4 - 11.3 [facility] Comment on above: Performed By: #### C BC #### [address] [address] HCG,URINEon 09-05-2020 Beta HCG ( test) Ql (U) Negative Normal Neg ative [facility] Comment on above: Performed By: #### H CGU #### [address] [address] Provider Note - ED v2on 08-16 Provider Note - ED v2 Provider Note - ED v2: Chart Review: ED NOTES ED NOTES: Patient is a 24-year-old female who presented to the ER with abdominal pain, constipation. Patient reported that she was recently diagnosed with H. pylori, so her stomach has been very sensitive, but reports that she has been pretty constipated over the past 4 weeks. Tonight she was to the bowel movement all day long, finally she decided to go ahead and get a laxative, she also did an enema tonight, and reports that she is unable to have a bowel movement. She denies any nausea, vomiting that is worse than her typical with the H. pylori recently. She denies any fever, chills. Denies any other recent illness or symptoms HISTORY OF PRESENTING ILLNESS SUSAN is a 24 year old Female and was seen by me at 04-Sep-2020 22:46 for a chief complaint of constipation (States no BM x 4 weeks. Today had a laxative at 1330 and at 1730 and a enema at 2000, no results. c/o pain in my butt and my stomach )(1). Triage Information: Most recent Vital Sign Value Date Temp (F): 98.5 09-04-2020 22:51 Temp (C): 36.9 09-04-2020 22:51 Heart Rate (beats/min): 76 09-04-2020 22:51 Respirations (breaths/min): 18 09-04-2020 22:51 SpO2 (%): 97 09-04-2020 22:51 BP Systolic (mm Hg): 119 09-04-2020 22:51 BP Diastolic (mm Hg): 63 09-04-2020 22:51 PAST MEDICAL HISTORY ATTESTATION: I have reviewed and confirmed nurse's/medic's notes for patient's medications, allergies, medical history, and surgical history ALLERGIES/INTOLERANCES: Allergy Allergen: penicillin Type: Drug Reaction: Rash Allergen: amoxicillin Type: Drug Reaction: Rash HEALTH HISTORY: No documented data. OUTPATIENT MEDICATIONS: Home Medications Review Status for Reconciliation: N/A Med Status: N/A No documented data. 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 ENT: No pharyngitis, rhinorrhea, congestion Pulmonary: No shortness of breath, cough, Heme/lymph: No swollen glands, fever, bleeding. GI: No , melena, hematemesis, hematochezia, nausea, vomiting, diarrhea. Ported abdominal pain, constipation : No , dysuria, frequency, urgency, Musculoskeletal: No limb pain, joint pain, joint swelling. Skin: No rashes. Review of systems is otherwise negative unless stated above or in history of present illness. RESULTS/VITAL SIGNS RESULTS: Recent Lab Results: I have reviewed these laboratory results: Complete Blood Count [Drawn 04-Sep-2020:14:00], Basic Metabolic Panel [Drawn 04-Sep-2020 23:14:00], Urine Test [Drawn 04-Sep-2020:04:00], Urinalysis [Drawn 04-Sep-2020 23:04:00]. PHYSICAL EXAM Image Comments: Physical Exam: Appearance: Alert, oriented , cooperative, in no acute distress. Well nourished & well hydrated. Skin: Intact, dry skin, no lesions, rash, petechiae or purpura. Eyes: PERRLA, EOMs intact, Conjunctiva pink with no redness or exudates. Cornea & anterior chamber are clear, Eyelids without lesions. No scleral icterus. ENT: Hearing grossly intact. External auditory canals patent, Nares patent, mucus membranes moist. Dentition without lesions. Pharynx clear, uvula midline. Neck: Supple, without meningismus. Thyroid not palpable. Trachea at midline. No lymphadenopathy. Pulmonary: Clear bilaterally with good chest wall excursion. No rales, rhonchi or wheezing. No accessory muscle use or stridor. Cardiac: Normal S1, S2 without murmur, rub, gallop or extrasystole. Abdomen: Soft, diffuse nonfocal tenderness to palpation, active bowel sounds. No palpable organomegaly. No rebound or guarding. No CVA tenderness. Genitourinary: Exam deferred. Musculoskeletal: Full range of motion. no pain, edema, or deformity. Pulses full and equal. No cyanosis, clubbing, or edema. Neurological: Cranial nerves II through XII are grossly intact,, no focal findings identified. Psychiatric: Appropriate mood and affect. MEDICAL DECISION MAKING/ED COURSE MDM/ED COURSE: Patient's work-up showed a moderate stool burden on the x-ray no bowel obstruction. Her lab work was unremarkable. Patient did opt for trying oral medications, I recommended using MiraLAX and making sure she is drinking plenty of fluids. CLINICAL IMPRESSION Diagnosis/Annotation: ED Dx Name:Constipation Code:K59.00 Disposition: discharged ATTESTATION CRITICAL CARE TIME Is this a critically ill patient: no Electronic Signatures: Brayden Yanez) (Signed 05-Sep-2020 01:49) Authored: ED Notes, HPI, PMH, ROS, PE, Results/Vital Signs, MDM/ED Course, Clinical Impression, Attestation, Chart Review, Scores Last Updated: 05-Sep-2020 01:49 by Brayden Yanez (DO) References: 1. Data Referenced From Triage - ED 04-Sep-2020 22:51 [facility] Risk Screen - Adult Emergenc yon 09-05-2020 Risk Screen - Adult Emergency Preferred Language: Preferred Language: Preferred Language for Discussing Health Care (patient/designee)Faroese Advanced Directives: Advance Directive/DNRno Family Violence Adult: Abuse Screen: Are you or have you been threatened or abused physically, emotionally, or sexually by anyoneno Learning Assessment (Patient): Learning Assessment (Patient): Patient is Able to be Assessed for Learningno Reason Unable to Assessnone Other Learnersnone Learning Assessment (Other Learner): Learning Assessment (Other Learner): Other learner availableno Pressure Injury/TB/Substance: Pressure Injury: Pressure Injury Present on Admissionno Do you have a coughno Substance Use Current or Former Historynever: Alcohol, Street Drugs YES: Cigarette/Tobacco Smoking Statuscurrent every day smoker Admission Risk Screen: Significant IndicatorsComplete CAGE: CAGE: Is this an [place] a [place]/[place]): no Electronic Signatures: Nette Dorantes (SUPV) (Signed 04-Sep-2020 23:08) Authored: Preferred Language, Advanced Directives, Family Violence Adult, Learning Assessment (Patient), Learning Assessment (Other Learner), Pressure Injury/TB/Substance, Pressure Injury, CAGE Last Updated: 04-Sep-2020 23:08 by Nette Dorantes (SUPV) [facility] Triage - EDon 09-05-2020 Triage - ED Quick Triage: Are You no Have You Given In The Last 6 Weeksno Are You Currently Breastfeedingno The patient and/or guardian verbally acknowledges placement for services into the following (when Urgent Care Service hours are operating):emergency department Chart Review: ARRIVAL INFORMATION Mode of Arrival: private vehicle CHIEF COMPLAINT SUSAN BRO is a Female patient with a chief complaint of constipation (States no BM x 4 weeks. Today had a laxative at 1330 and at 1730 and a enema at 2000, no results. c/o pain in my butt and my stomach ). Triage Date/Time: 04-Sep-2020 22:51 Pain Rating (0-10): 8 = Severe Pain location: my butt and stomach Vital Signs: Temperature: 98.5F ( 36.9C) taken oral Blood Pressure: 119/63 Mean: Heart Rate: 76 Respiratory Rate: 18 Pulse Oximetry: 97% on room air, no respiratory support. Height: 5 feet 4.00 inches. 162.5 CM Weight: 224.8 pounds. Calculated 102.0 kg. (stated) Calculated BMI (kg/m2): 38.627 Calculated BSA (m2) 2.15 [place] Coma Scale: Best Eye Response: (E4) spontaneous Best Motor Response: (M6) obeys commands Best Verbal Response: (V5) oriented Andres Score: 15 Cough lasting greater than 3 weeks: no Patient immunocompromised related to: N/A Allergies: yes Last menstrual period: 05-Aug-2020 AQUATIC SCIENTIST History: (states no form of BC) Patient has homicidal thoughts: no BERNADETTE: 3V Last Bowel Movement: 14-Aug-2020 Risk Screens Suicide Risk Screen In the Past Month: Have you wished you were or wished you could go to sleep and not wake up no In the Past Month: Have you had any actual thoughts of killing yourself no In Your Lifetime: Have you ever done anything, started to do anything, or prepared to do anything to end your life no Gee Fall Scale Screening Has the patient fallen before (or is the patient in the ED as a result of a fall) has not had a fall Does the patient have an impaired gait does not have impaired gait Is the patient cognitively impaired not cognitively impaired Interventions: Gee Fall Interventions: LOW INTERVENTIONS: *patient oriented to surroundings and call system, * patient/family falls education completed and documented, *patients fall status communicated during bedside handoff, *whiteboard updated, *mode of toileting discussed with patient, *bed in low position with brakes locked, *call light in reach, * non-skid footwearlow interventions except: patient oriented to surroundings and call systemlow interventions except: patient/family falls education completed and documentedlow interventions except: patients fall status communicated during bedside handoff, whiteboard updatedlow interventions except: mode of toileting discussed with patientlow interventions except: bed in low position with brakes lockedlow interventions except: call light in reach and low interventions except: non-skid footwear TRAVEL HISTORY Travel History Coronavirus Screening: no exposure or symptoms PAIN Pain Scale Used: NISHA Pain Rating (0-10): 8 = Severe Past Medical History: Past Medical History Reviewedyes H Pilory: Past Medical History, Active Electronic Signatures: Nette Dorantes (SUPV) (Signed 04-Sep-2020 23:01) Entered: Risk Screens, Pain, Chart Review, Scores, Past Medical History Authored: Quick Triage, Risk Screens, Pain, Chart Review, Scores, Past Medical History Last Updated: 04-Sep-2020 23:01 by Nette Dorantes (SUPV) Normal [facility] URINALYSISon 09-05-2020 Appearance (U) CLEAR Normal CLEAR [facility] Comment on above: Performed By: #### U A #### [place] [address] Bilirubin (U) [Mass/Vol] Negative Normal NEGATIVE [facility] Comment on above: Performed By: #### U A #### [place] [address] BLOOD Negative Normal NEGATIVE [facility] Comment on above: Performed By: #### U A #### [place] [id number] Color (U) Yellow Normal STRAW,YELLOW [facility] Comment on above: Performed By: #### U A #### [address] [address] Glucose [Mass/Vol] Negative Normal NEGATIVE [facility] Comment on above: Performed By: #### U A #### [place] [id number] Ketones Ql (U) Negative Normal NEGATIVE [facility] Comment on above: Performed By: #### U A #### [place] [id number] Leukocyte esterase Test stri p Ql (U) Negative Normal NEGATIVE [facility] Comment on above: Performed By: #### U A #### [place] [id number] Nitrite Ql (U) Negative Normal NEGATIVE [facility] Comment on above: Performed By: #### U A #### [address] [address] pH (Bld) 5.0 Normal 5.0 - 8.0 [facility] Comment on above: Performed By: #### U A #### [address] [address] Protein (U) [Mass/Vol] Negative Normal NEGATIVE [facility] Comment on above: Performed By: #### U A #### [address] [address] Specific gravity (U) [Rel density] 1.015 Normal 1.005 - 1.035 [facility] Comment on above: Performed By: #### U A #### [address] [address] Urobilinogen Qn (U) <2.0 Normal 0.0 - 1.9 [facility] Comment on above: Performed By: #### U A #### [address] [address] , Urineon 0 Beta HCG ( test) Ql (U) Negative NEG [place], [place] Comment on above: Specimens with hCG l evels near the threshold of the test (25 mIU/mL) may give a negative or indeterminate result. In such cases, another test should be performed with a new specimen in 48-72 hours. If early is suspected clinically in this setting, correlation with quantitative serum b-hCG level is suggested. [employer] has confirmed the use of plasma for this test. This has not been cleared or approved by the U.S. Food and Drug Administration. The FDA has determined that such clearance is not necessary. XR ELBOW RIGHT (2 VIEWS)on Ren, pn Incoming R adiant Results From [facility] - 08/09/2020 8:04 PM EDT EXAMINATION: TWO XRAY VIEWS OF THE RIGHT ELBOW 08/09/2020 7:50 pm COMPARISON: None. HISTORY: ORDERING SYSTEM PROVIDED HISTORY: Fall TECHNOLOGIST PROVIDED HISTORY: Fall FINDINGS: There is no elbow effusion. There is no acute fracture or dislocation. Alignment is normal. IMPRESSION: No acute abnormality. [facility]: TWO XRA Y VIEWS OF THE RIGHT ELBOW 08/09/2020 7:50 pm COMPARISON: None. HISTORY: ORDERING SYSTEM PROVIDED HISTORY: Fall TECHNOLOGIST PROVIDED HISTORY: Fall FINDINGS: There is no elbow effusion. There is no acute fracture or dislocation. Alignment is normal. [facility] No acute abnormality. [facility], [place] XR FEMUR RIGHT (MIN 2 VIEWS) on 08-09-2020 No acute osseous abnormality. [facility] In[facility] R adiant Results From [facility] - 08/09/2020 8:02 PM EDT EXAMINATION: 2 XRAY VIEWS OF THE RIGHT FEMUR 08/09/2020 7:50 pm COMPARISON: None. HISTORY: ORDERING SYSTEM PROVIDED HISTORY: Fall TECHNOLOGIST PROVIDED HISTORY: X-ray injured hip and pelvis - add femur if pain and/or swelling is distal to the hip Fall FINDINGS: There is no evidence of acute fracture. There is normal alignment. No acute joint abnormality. No focal osseous lesion. No focal soft tissue abnormality. IMPRESSION: No acute osseous abnormality. [facility] 2 XRAY VIEWS OF THE RIGHT FEMUR 08/09/2020 7:50 pm COMPARISON: None. HISTORY: ORDERING SYSTEM PROVIDED HISTORY: Fall TECHNOLOGIST PROVIDED HISTORY: X-ray injured hip and pelvis - add femur if pain and/or swelling is distal to the hip Fall FINDINGS: There is no evidence of acute fracture. There is normal alignment. No acute joint abnormality. No focal osseous lesion. No focal soft tissue abnormality. [facility] XR KNEE RIGHT (3 VIEWS)on EXAMINATION: THREE X RAY VIEWS OF THE RIGHT KNEE 08/09/2020 7:50 pm COMPARISON: None. HISTORY: ORDERING SYSTEM PROVIDED HISTORY: Fall TECHNOLOGIST PROVIDED HISTORY: Fall FINDINGS: No acute fracture. Joint spaces are preserved. No joint effusion. [facility] Incoming R adiant Results From [facility] - 08/09/2020 8:04 PM EDT EXAMINATION: THREE XRAY VIEWS OF THE RIGHT KNEE 08/09/2020 7:50 pm COMPARISON: None. HISTORY: ORDERING SYSTEM PROVIDED HISTORY: Fall TECHNOLOGIST PROVIDED HISTORY: Fall FINDINGS: No acute fracture. Joint spaces are preserved. No joint effusion. IMPRESSION: Negative right knee radiographs. [facility]. [facility] SHOULDER RIGHT (MIN 2 VIE WS)on 08-09-2020 Ren, M[facility]pn Incoming R adiant Results From [facility] - 08/09/2020 8:03 PM EDT EXAMINATION: THREE XRAY VIEWS OF THE RIGHT SHOULDER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 pressure 78 mm[Hg] Roverto Spasic [facility] 06-28-2023 10:34-0400 Heart rate 81 /min Roverto Spasic [facility] 06-28-2023 10:34-0400 SaO2% (BldA) [Mass fraction] 99 % Roverto Spasic [facility] 06-28-2023 10:34-0400 Systolic blood pressure 119 mm[Hg] Roverto Guthriesic [facility] 06-14-2023 08:37-0400 Body temperature 98.6 [degF] Kristian Guillermo [facility] 06-14-2023 08:37-0400 Diastolic blood pressure 70 mm[Hg] Kristian Guillermo [facility] 06-14-2023 08:37-0400 Heart rate 69 /min Kristian Guillermo [facility] 06-14-2023 08:37-0400 Respiratory rate 18 /min Kristian Guillermo [facility] 06-14-2023 08:37-0400 SaO2% (BldA) [Mass fraction] 100 % Kristian Guillermo [facility] 06-14-2023 08:37-0400 Systolic blood pressure 110 mm[Hg] Kristian Guillermo [facility] 05-21-2023 23:00-0400 Diastolic blood pressure 64 mm[Hg] Carrolylinn Dokken [facility] 05-21-2023 23:00-0400 Heart rate 64 /min Kaylinn Dokken [facility] 05-21-2023 23:00-0400 Mean blood pressure 77 mm[Hg] Kaylinn Dokken [facility] 05-21-2023 23:00-0400 Respiratory rate 18 /min Kaylinn Dokken [facility] 05-21-2023 23:00-0400 Systolic blood pressure 102 mm[Hg] Kaylinn Dokken [facility] 05-21-2023 21:50-0400 Hourly Rounding Kaylinn Dokken [facility] 05-21-2023 21:30-0400 Diastolic blood pressure 53 mm[Hg] Kaylinn Dokken [facility] 05-21-2023 21:30-0400 Heart rate 72 /min Kaylinn Dokken [facility] 05-21-2023 21:30-0400 Respiratory rate 19 /min Kaylinn Dokken [facility] 05-21-2023 21:30-0400 SaO2% (BldA) [Mass fraction] 100 % Kaylinn Dokken [facility] 05-21-2023 21:30-0400 Systolic blood pressure 91 mm[Hg] [facility]linn Dokken [facility] [facility] 05-21-2023 20:38-0400 Body temperature 98.42 [degF] Kaylinn Dokken [facility] 05-21-2023 20:38-0400 Diastolic blood pressure 73 mm[Hg] Kaylinn Dokken [facility] 05-21-2023 20:38-0400 Heart rate 60 /min Kaylinn Dokken [facility] 05-21-2023 20:38-0400 Respiratory rate 20 /min Kaylinn Dokken [facility] 05-21-2023 20:38-0400 Systolic blood pressure 109 mm[Hg] Kaylinn Dokken [facility] 04-26-2023 11:10-0400 Diastolic blood pressure 74 mm[Hg] [facility] 04-26-2023 11:10-0400 Heart rate 65 /min [facility] 04-26-2023 11:10-0400 Respiratory rate 14 /min [facility] 04-26-2023 11:10-0400 SaO2% (BldA) [Mass fraction] 100 % [facility] 04-26-2023 11:10-0400 Systolic blood pressure 108 mm[Hg] [facility] 04-26-2023 09:00-0400 Body temperature 98.24 [degF] [facility] 04-26-2023 09:00-0400 Diastolic blood pressure 72 mm[Hg] [facility] 04-26-2023 09:00-0400 Heart rate 80 /min [facility] 04-26-2023 09:00-0400 Mean blood pressure 85 mm[Hg] [facility] 04-26-2023 09:00-0400 Respiratory rate 18 /min [facility] 04-26-2023 09:00-0400 Systolic blood pressure 110 mm[Hg] [facility] 01-31-2023 11:43-0400 Diastolic blood pressure 67 mm[Hg] Kristian Guillermo [facility] 01-31-2023 11:43-0400 Heart rate 68 /min Kristian Guillermo [facility] 01-31-2023 11:43-0400 Mean blood pressure 79 mm[Hg] Kristian Guillermo [facility] 01-31-2023 11:43-0400 Respiratory rate 16 /min Kristian Guillermo [facility] 01-31-2023 11:43-0400 SaO2% (BldA) [Mass fraction] 100 % Kristian Guillermo [facility] 01-31-2023 11:43-0400 Systolic blood pressure 103 mm[Hg] Kristian Eagle [facility] 01-31-2023 11:03-0400 Diastolic blood pressure 73 mm[Hg] Kristian Eagle [facility] 01-31-2023 11:03-0400 Heart rate 71 /min Kristian Eagle [facility] 01-31-2023 11:03-0400 Mean blood pressure 81 mm[Hg] Kristian Eagle [facility] 01-31-2023 11:03-0400 Respiratory rate 12 /min Kristian Eagle [facility] 01-31-2023 11:03-0400 SaO2% (BldA) [Mass fraction] 100 % Kristian Eagle [facility] 01-31-2023 11:03-0400 Systolic blood pressure 98 mm[Hg] Kristian Eagle [facility] 01-31-2023 10:29-0400 Diastolic blood pressure 77 mm[Hg] Kristian Eagle [facility] 01-31-2023 10:29-0400 Heart rate 87 /min Kristian Eagle [facility] 01-31-2023 10:29-0400 Respiratory rate 21 /min Kristian Eagle [facility] 01-31-2023 10:29-0400 SaO2% (BldA) [Mass fraction] 99 % Kristian Guillermo [facility] 01-31-2023 10:29-0400 Systolic blood pressure 101 mm[Hg] Kristian Guillermo [facility] 01-31-2023 09:51-0400 gluc 100 mg/dL Kristian Guillermo [facility] 01-31-2023 09:51-0400 gluc Kristian Guillermo [facility] 01-31-2023 09:43-0400 Body temperature 98.42 [degF] Kristian Guillermo [facility] 01-31-2023 09:43-0400 Heart rate 75 /min Kristian Guillermo [facility] 01-31-2023 09:43-0400 Respiratory rate 18 /min Kristian Guillermo [facility] 09-22-2022 15:14-0500 Body temperature 98.24 [degF] Luis Carlos Jung [facility] 09-22-2022 15:14-0500 Diastolic blood pressure 84 mm[Hg] Luis Carlos Jung [facility] 09-22-2022 15:14-0500 Heart rate 76 /min Luis Carlos Jung [facility] 09-22-2022 15:14-0500 Mean blood pressure 97 mm[Hg] Luis Carlos Jung [facility] 09-22-2022 15:14-0500 Respiratory rate 20 /min Luis Carlos Jung [facility] 09-22-2022 15:14-0500 Systolic blood pressure 124 mm[Hg] Luis Carlos Jung [facility] 09-22-2022 15:00-0500 Blood Pressure Location Luis Carlos Jung [facility] 09-20-2022 17:15-0500 Hourly Rounding Luis Carlos Jung [facility] Comment on above: Result Comment: disc harge instructions given with verbal understanding. monitors off; pt up to dress. 09-20-2022 16:15-0500 Diastolic blood pressure 77 mm[Hg] Luis Carlos Fabiana [facility] 09-20-2022 16:15-0500 Heart rate 78 /min Luis Carlos Jung [facility] 09-20-2022 16:15-0500 Mean blood pressure 92 mm[Hg] Luis Carlos Fabiana [facility] 09-20-2022 16:15-0500 Respiratory rate 18 /min Luis Carlos Jung [facility] 09-20-2022 16:15-0500 Systolic blood pressure 121 mm[Hg] Luis Carlos Jung [facility] 09-20-2022 13:16-0500 Diastolic blood pressure 80 mm[Hg] Luis Carlos Fabiana [facility] 09-20-2022 13:16-0500 Heart rate 80 /min Luis Carlos Jung [facility] 09-20-2022 13:16-0500 Mean blood pressure 93 mm[Hg] Luis Carlos Jung [facility] 09-20-2022 13:16-0500 Respiratory rate 18 /min Luis Carlos Jung [facility] 09-20-2022 13:16-0500 Systolic blood pressure 120 mm[Hg] Luis Carlos Montesinosten [facility] 09-20-2022 09:48-0500 Diastolic blood pressure 79 mm[Hg] Luis Carlos Fabiana [facility] 09-20-2022 09:48-0500 Heart rate 94 /min Luis Carlos Jung [facility] 09-20-2022 09:48-0500 Hourly Rounding Luis Carlos Jung [facility] 09-20-2022 09:48-0500 Mean blood pressure 97 mm[Hg] Luis Carlos Jung [facility] 09-20-2022 09:48-0500 Respiratory rate 18 /min Luis Carlos Jung [facility] 09-20-2022 09:48-0500 Systolic blood pressure 132 mm[Hg] Luis Carlos Jung [facility] 09-19-2022 03:38-0500 Hourly Rounding Jj DELANEYK [facility] Comment on above: Result Comment: pt w alks off unit with a steady gait 09-19-2022 02:45-0500 Blood Pressure Location Jj KARASIK [facility] 09-19-2022 02:45-0500 Body temperature 98.42 [degF] Jj KARASIK [facility] 09-19-2022 02:45-0500 Diastolic blood pressure 77 mm[Hg] Jj KARASIK [facility] 09-19-2022 02:45-0500 Heart rate 62 /min Jj KARASIK [facility] 09-19-2022 02:45-0500 Hourly Rounding Jj KARASIK [facility] Comment on above: Result Comment: osbaldo viramontes answered, denies needs 09-19-2022 02:45-0500 Mean blood pressure 91 mm[Hg] Jj KARASIK [facility] 09-19-2022 02:45-0500 Respiratory rate 18 /min Jj KARASIK [facility] 09-19-2022 02:45-0500 Systolic blood pressure 120 mm[Hg] Jj KARASIK [facility] 09-19-2022 01:45-0500 Blood Pressure Location Jj MIKE [facility] 09-19-2022 01:45-0500 Body temperature 98.06 [degF] Jj MIKE [facility] 09-19-2022 01:45-0500 Diastolic blood pressure 84 mm[Hg] Jj MIKE [facility] 09-19-2022 01:45-0500 Heart rate 70 /min Jj MIKE [facility] 09-19-2022 01:45-0500 Hourly Rounding Jj MIKE [facility] Comment on above: Result Comment: pt b rought to unit via wheelchair. Changes into gown independently and provides urine sample. Pt demonstrates ability to use call light. Needs met, call light in reach 09-19-2022 01:45-0500 Mean blood pressure 96 mm[Hg] Jj MIKE [facility] 09-19-2022 01:45-0500 Respiratory rate 18 /min Jj MIKE [facility] 09-19-2022 01:45-0500 Systolic blood pressure 120 mm[Hg] Jj MIKE [facility] 09-14-2022 12:15-0500 Hourly Rounding Luis Carlos Jung [facility] Comment on above: Result Comment: revi ewed plan for disch and use of meds to treat head ache 09-14-2022 11:45-0500 Hourly Rounding Armando constantino Jung [facility] Comment on above: Result Comment: STAT ES SHE FEELS MUCH BETTER AND WANTS TO GO HOME 09-14-2022 11:15-0500 Diastolic blood pressure 73 mm[Hg] Luis Carlos Montesinosten [facility] 09-14-2022 11:15-0500 Heart rate 74 /min Luis Carlos Montesinosten [facility] 09-14-2022 11:15-0500 Hourly Rounding Luis Carlos Jung [facility] 09-14-2022 11:15-0500 Mean blood pressure 88 mm[Hg] Luis Carlos Fabiana [facility] 09-14-2022 11:15-0500 Systolic blood pressure 119 mm[Hg] Luis Carlos Fabiana [facility] 09-14-2022 11:00-0500 Diastolic blood pressure 66 mm[Hg] Luis Carlos Montesinosten [facility] 09-14-2022 11:00-0500 Heart rate 67 /min Luis Carlos Montesinosten [facility] 09-14-2022 11:00-0500 Mean blood pressure 84 mm[Hg] Luis Carlos Fabiana [facility] 09-14-2022 11:00-0500 Systolic blood pressure 120 mm[Hg] Luis Carlos Montesinosten [facility] 09-14-2022 10:45-0500 Diastolic blood pressure 72 mm[Hg] Luis Carlos Montesinosten [facility] 09-14-2022 10:45-0500 Heart rate 75 /min Luis Carlos Montesinosten [facility] 09-14-2022 10:45-0500 Mean blood pressure 90 mm[Hg] Luis Carlos Fabiana [facility] 09-14-2022 10:45-0500 Systolic blood pressure 125 mm[Hg] Luis Carlos Fabiana [facility] 09-14-2022 09:30-0500 Blood Pressure Location Luis Carlos Jung [facility] 09-14-2022 09:30-0500 Body temperature 98.06 [degF] Luis Carlos Jung [facility] 09-14-2022 09:30-0500 Respiratory rate 16 /min Luis Carlos Jung [facility] 09-12-2022 20:45-0500 Hourly Rounding Luis Carlos Jung [facility] Comment on above: Result Comment: disc davonte instructions given, pt verbalizes understanding. pt ambulates off unit with steady gait 09-12-2022 20:00-0500 Blood Pressure Location Luis Carlos Jung [facility] 09-12-2022 20:00-0500 Diastolic blood pressure 79 mm[Hg] Luis Carlos Jung [facility] 09-12-2022 20:00-0500 Heart rate 84 /min Luis Carlos Jung [facility] 09-12-2022 20:00-0500 Hourly Rounding Luis Carlos Jung [facility] 09-12-2022 20:00-0500 Mean blood pressure 95 mm[Hg] Luis Carlos Jung [facility] 09-12-2022 20:00-0500 Respiratory rate 18 /min Luis Carlos Jung [facility] 09-12-2022 20:00-0500 Systolic blood pressure 128 mm[Hg] Luis Carlos Jung [facility] 09-12-2022 19:45-0500 Hourly Rounding Luis Carlos Jung [facility] Comment on above: Result Comment: pt a rrives to unit in wheelchair with mother. Changes into gown independently, oriented to room, demonstrates ability to use call light, call light in reach 09-08-2022 08:32-0500 Blood Pressure Location Luis Carlos Jung [facility] 09-08-2022 08:32-0500 Body temperature 97.34 [degF] Luis Carlos Jung [facility] 09-08-2022 08:32-0500 Diastolic blood pressure 74 mm[Hg] Luis Carlos Jung [facility] 09-08-2022 08:32-0500 Heart rate 90 /min Luis Carlos Jung [facility] 09-08-2022 08:32-0500 Hourly Rounding Luis Carlos Jung [facility] Comment on above: Result Comment: PLAN OF CARE DISCUSSED 09-08-2022 08:32-0500 Mean blood pressure 90 mm[Hg] Luis Carlos Jung [facility] 09-08-2022 08:32-0500 Respiratory rate 18 /min Luis Carlos Jung [facility] 09-08-2022 08:32-0500 Systolic blood pressure 123 mm[Hg] Luis Carlos Jung [facility] 09-05-2022 22:00-0500 Body temperature 98.6 [degF] Carrolylmarkn Dokken [facility] 09-05-2022 22:00-0500 Diastolic blood pressure 73 mm[Hg] Kaylinn Dokken [facility] 09-05-2022 22:00-0500 Mean blood pressure 85 mm[Hg] Kaylinn Dokken [facility] 09-05-2022 22:00-0500 Respiratory rate 27 /min Carrolylinn Dokken [facility] 09-05-2022 22:00-0500 SaO2% (BldA) [Mass fraction] 100 % Kaylinn Dokken [facility] 09-05-2022 22:00-0500 Systolic blood pressure 108 mm[Hg] Kaylinn Dokken [facility] 09-05-2022 21:01-0500 Heart rate 78 /min Kaylinn Dokken [facility] 09-05-2022 21:01-0500 Respiratory rate 20 /min Kaylinn Dokken [facility] 09-05-2022 21:01-0500 SaO2% (BldA) [Mass fraction] 94 % Kaylinn Dokken [facility] 09-05-2022 21:00-0500 Diastolic blood pressure 77 mm[Hg] Kaylinn Dokken [facility] 09-05-2022 21:00-0500 Mean blood pressure 87 mm[Hg] Kaylinn Dokken [facility] 09-05-2022 20:10-0500 Body temperature 97.7 [degF] Kaylinn Dokken [facility] 09-05-2022 20:10-0500 Diastolic blood pressure 81 mm[Hg] Kaylinn Dokken [facility] 09-05-2022 20:10-0500 Heart rate 83 /min Kaylinn Dokken [facility] 09-05-2022 20:10-0500 Respiratory rate 22 /min Kaylinn Dokken [facility] 09-05-2022 20:10-0500 SaO2% (BldA) [Mass fraction] 99 % Kaylinn Dokken [facility] 09-05-2022 20:10-0500 Systolic blood pressure 135 mm[Hg] Gopi Rodriguez [facility] 08-31-2022 01:03-0500 Hourly Rounding Luis Carlos Jung [facility] Comment on above: Result Comment: pt a mbulates off unit at this time w/ steady gait. 08-31-2022 00:58-0500 Hourly Rounding Armando Jung [facility] Comment on above: Result Comment: this nurse gives discharge instructions to pt at this time. pt verbalizes understanding of all education given. denies further needs. will continue to monitor. 08-31-2022 00:50-0500 Blood Pressure Location Luis Carlos Jung [facility] 08-31-2022 00:50-0500 Diastolic blood pressure 69 mm[Hg] Luis Carlos Jung [facility] 08-31-2022 00:50-0500 Heart rate 67 /min Luis Carlos Jung [facility] 08-31-2022 00:50-0500 Hourly Rounding Luis Carlos Jung [facility] Comment on above: Result Comment: pt u p to bathroom at this time to void and change into clothes. walks w/ steady gait. 08-31-2022 00:50-0500 Mean blood pressure 83 mm[Hg] Luis Carlos Jung [facility] 08-31-2022 00:50-0500 Respiratory rate 18 /min Luis Carlos Jung [facility] 08-31-2022 00:50-0500 Systolic blood pressure 112 mm[Hg] Luis Carlos Jung [facility] 08-30-2022 21:52-0500 Body temperature 98.06 [degF] Luis Carlos Jung [facility] 08-30-2022 21:52-0500 Diastolic blood pressure 74 mm[Hg] Luis Carlos Jung [facility] 08-30-2022 21:52-0500 Heart rate 82 /min Luis Carlos Jung [facility] 08-30-2022 21:52-0500 Mean blood pressure 90 mm[Hg] Luis Carlos Jung [facility] 08-30-2022 21:52-0500 Respiratory rate 18 /min Luis Carlos Jung [facility] 08-30-2022 21:52-0500 Systolic blood pressure 123 mm[Hg] Luis Carlos Jung [facility] 08-30-2022 21:45-0500 Blood Pressure Location Luis Carlos Jung [facility] 08-22-2022 17:19-0500 Hourly Rounding Luis Carlos Jung [facility] Comment on above: Result Comment: KARAN TORS OFF; PT UP TO DRESS. DISCHARGE INSTRUCTIONS GIVEN WITH VERBAL UNDERSTANDING. 08-22-2022 15:14-0500 Diastolic blood pressure 71 mm[Hg] Luis Carlos Jung [facility] 08-22-2022 15:14-0500 Heart rate 87 /min Luis Carlos Jung [facility] 08-22-2022 15:14-0500 Hourly Rounding Luis Carlos Jung [facility] 08-22-2022 15:14-0500 Mean blood pressure 86 mm[Hg] Luis Carlos Jung [facility] 08-22-2022 15:14-0500 Respiratory rate 18 /min Luis Carlos Jung [facility] 08-22-2022 15:14-0500 Systolic blood pressure 115 mm[Hg] Luis Carlos Jung [facility] 08-18-2022 12:28-0400 Hourly Rounding Luis Carlos Jung [facility] Comment on above: Result Comment: pt v erbalizes understanding of discharge instructions. pt states she has an appointment sunday with dr jung. pt ambulated out of unit 08-18-2022 10:28-0400 Hourly Rounding Armando Jung [facility] Comment on above: Result Comment: pt c /o left lower abd pain. states it is intermittent and sharp. encouraged pt to get up and empty bladder. pt states pain is still 7/10. dr jung on unit & at bedside 08-18-2022 09:09-0400 Hourly Rounding Armando Jung [facility] Comment on above: Result Comment: pt s itting up in bed with breakfast tray, visitor at bedside 08-18-2022 07:15-0400 Blood Pressure Location Luis Carlos Jung [facility] 08-18-2022 07:15-0400 Diastolic blood pressure 56 mm[Hg] Luis Carlos Fabiana [facility] 08-18-2022 07:15-0400 Heart rate 69 /min Luis Carlos Jung [facility] 08-18-2022 07:15-0400 Mean blood pressure 74 mm[Hg] Luis Carlos Fabiana [facility] 08-18-2022 07:15-0400 Respiratory rate 16 /min Luis Carlos Jung [facility] 08-18-2022 07:15-0400 Systolic blood pressure 111 mm[Hg] Luis Carlos Fabiana [facility] 08-18-2022 05:58-0400 Blood Pressure Location Luis Carlos Jung [facility] 08-18-2022 05:58-0400 Diastolic blood pressure 59 mm[Hg] Luis Carlos Jung [facility] 08-18-2022 05:58-0400 Heart rate 67 /min Luis Carlos Jung [facility] 08-18-2022 05:58-0400 Mean blood pressure 77 mm[Hg] Luis Carlos Jung [facility] 08-18-2022 05:58-0400 Respiratory rate 16 /min Luis Carlos Jung [facility] 08-18-2022 05:58-0400 Systolic blood pressure 113 mm[Hg] Luis Carlos Jung [facility] 08-18-2022 04:06-0400 Blood Pressure Location Luis Carlos Jung [facility] 08-18-2022 04:06-0400 Body temperature 98.06 [degF] Luis Carlos Jung [facility] 08-18-2022 04:06-0400 Diastolic blood pressure 65 mm[Hg] Luis Carlos Jung [facility] 08-18-2022 04:06-0400 Heart rate 70 /min Luis Carlos Jung [facility] 08-18-2022 04:06-0400 Mean blood pressure 79 mm[Hg] Luis Carlos Jung [facility] 08-18-2022 04:06-0400 Respiratory rate 16 /min Luis Carlos Jung [facility] 08-18-2022 04:06-0400 Systolic blood pressure 107 mm[Hg] Luis Carlos Jung [facility] 08-13-2022 20:04-0400 Hourly Rounding Luis Carlos Fabiana [facility] Comment on above: Result Comment: Raeann ent discharged off unit. Discharge instructions were reviewed. Pt walks off unit without any notable signs or symtpoms of distress. 08-13-2022 19:45-0400 Hourly Rounding Armando meeks Fabiana [facility] 08-13-2022 19:45-0400 Hourly Rounding Armando Davies campusten [facility] Comment on above: Result Comment: Raeann ent sitting in bed. BPP results reviewed with patient. Pt denied any additional questions. Call light within reach. 08-13-2022 18:12-0400 [facility] 08-13-2022 18:12-0400 Nursing Progress Note Reason Other: Pt updated on orders received from . jose understanding [facility] 08-13-2022 18:12-0400 SaO2% (BldA) [Mass fraction] 99 % Luis Carlos Fabiana [facility] 08-13-2022 17:33-0400 Body temperature 97.88 [degF] Luis Carlos Jung [facility] 08-13-2022 17:33-0400 Diastolic blood pressure 72 mm[Hg] Luis Carlos Jung [facility] 08-13-2022 17:33-0400 Mean blood pressure 88 mm[Hg] Luis Carlos Fabiana [facility] 08-13-2022 17:33-0400 Respiratory rate 18 /min Luis Carlos Jung [facility] 08-13-2022 17:33-0400 Systolic blood pressure 121 mm[Hg] Luis Carlos Jung [facility] 07-26-2022 10:22-0400 Hourly Rounding Luis Carlos Jung [facility] Comment on above: Result Comment: disc harge instructions provided and pt signs discharge consent with RN witness. pt preparing for discharge, belly band placed on pt. RN offers wheelchair exit for discharge and pt declines and wants to walk down on own. 07-26-2022 10:22-0400 Promise to Return Luis Carlos Jung [facility] 07-26-2022 10:00-0400 Hourly Rounding Luis Carlos Jung [facility] 07-26-2022 10:00-0400 Promise to Return Luis Carlos Jung [facility] 07-26-2022 09:15-0400 Blood Pressure Location Luis Carlos Jung [facility] 07-26-2022 09:15-0400 Body temperature 97.7 [degF] Luis Carlos uJng [facility] 07-26-2022 09:15-0400 Diastolic blood pressure 62 mm[Hg] Luis Carlos Jung [facility] 07-26-2022 09:15-0400 Heart rate 70 /min Luis Carlos Jung [facility] 07-26-2022 09:15-0400 Hourly Rounding Luis Carlos Jung [facility] 07-26-2022 09:15-0400 Mean blood pressure 74 mm[Hg] Luis Carlos Jung [facility] 07-26-2022 09:15-0400 Respiratory rate 18 /min Luis Carlos Jung [facility] 07-26-2022 09:15-0400 Systolic blood pressure 97 mm[Hg] Luis Carlos Jung [facility] 07-26-2022 09:00-0400 Promise to Return Luis Carlos Jung [facility] 07-26-2022 08:14-0400 Body temperature 98.06 [degF] Luis Carlos Jung [facility] 07-26-2022 08:14-0400 Diastolic blood pressure 66 mm[Hg] Luis Carlos Jung [facility] 07-26-2022 08:14-0400 Heart rate 81 /min Luis Carlos Jung [facility] 07-26-2022 08:14-0400 Mean blood pressure 80 mm[Hg] Luis Carlos Jung [facility] 07-26-2022 08:14-0400 Respiratory rate 18 /min Luis Carlos Jung [facility] 07-26-2022 08:14-0400 Systolic blood pressure 109 mm[Hg] Luis Carlos Jung [facility] 07-17-2022 09:07-0400 Body temperature 97.88 [degF] Ko Dumas [facility] 07-17-2022 09:07-0400 Diastolic blood pressure 74 mm[Hg] Ko Dumas [facility] 07-17-2022 09:07-0400 Heart rate 85 /min Ko Almodovare [facility] 07-17-2022 09:07-0400 Respiratory rate 16 /min Ko Dumas [facility] 07-17-2022 09:07-0400 SaO2% (BldA) [Mass fraction] 100 % Ko Almodovare [facility] 07-17-2022 09:07-0400 Systolic blood pressure 117 mm[Hg] Ko Almod[facility] 06-26-2022 21:38-0400 Blood Pressure Location Luis Carlos Fabiana [facility] 06-26-2022 21:38-0400 Diastolic blood pressure 61 mm[Hg] Luis Carlos Fabiana [facility] 06-26-2022 21:38-0400 Heart rate 83 /min Luis Carlos Fabiana [facility] 06-26-2022 21:38-0400 Hourly Rounding Luis Carlos Jung [facility] Comment on above: Result Comment: disc harged ambulatory to pov 06-26-2022 21:38-0400 Mean blood pressure 75 mm[Hg] Luis Carlos Fabiana [facility] 06-26-2022 21:38-0400 Respiratory rate 16 /min Luis Carlos Fabiana [facility] 06-26-2022 21:38-0400 Systolic blood pressure 102 mm[Hg] Luis Carlos Fabiana [facility] 06-26-2022 21:15-0400 Blood Pressure Location Luis Carlos Montesinosten [facility] 06-26-2022 21:15-0400 Diastolic blood pressure 64 mm[Hg] Luis Carlos Fabiana [facility] 06-26-2022 21:15-0400 Heart rate 74 /min Luis Carlos Jung [facility] 06-26-2022 21:15-0400 Hourly Rounding Luis Carlos Jung [facility] 06-26-2022 21:15-0400 Mean blood pressure 78 mm[Hg] Luis Carlos Fabiana [facility] 06-26-2022 21:15-0400 Respiratory rate 16 /min Luis Carlos Fabiana [facility] 06-26-2022 21:15-0400 Systolic blood pressure 106 mm[Hg] Luis Carlos Jung [facility] 06-26-2022 21:05-0400 Body temperature 97.88 [degF] Luis Carlos Jung [facility] 06-26-2022 21:05-0400 Respiratory rate 18 /min Luis Carlos Jung [facility] 06-26-2022 21:00-0400 Hourly Rounding Luis Carlos Jung [facility] Comment on above: Result Comment: ice water given 06-19-2022 01:30-0400 Hourly Rounding Armando Jung [facility] Comment on above: Result Comment: alma rosa espinosa on plan of care after speaking to dr jung. verb understanding and all d/c instructions provided. denies further needs/concerns. ambulates off unit without any further questions. 06-19-2022 01:00-0400 Hourly Rounding Armando Jung [facility] Comment on above: Result Comment: rest s in bed on phone. denies any needs. denies any pain at this time or any pain or cramping since arrival. call light within reach 06-19-2022 00:15-0400 Hourly Rounding Luis Carlos Jung [facility] 06-18-2022 23:54-0400 Body temperature 97.88 [degF] Luis Carlos Jung [facility] 06-18-2022 23:54-0400 Diastolic blood pressure 65 mm[Hg] Luis Carlos Jung [facility] 06-18-2022 23:54-0400 Heart rate 76 /min Luis Carlos Jung [facility] 06-18-2022 23:54-0400 Mean blood pressure 81 mm[Hg] Luis Carlos Jung [facility] 06-18-2022 23:54-0400 Respiratory rate 18 /min Luis Carlos Jung [facility] 06-18-2022 23:54-0400 Systolic blood pressure 112 mm[Hg] Luis Carlos Jung [facility] 06-18-2022 23:45-0400 Blood Pressure Location Luis Carlos Jung [facility] 05-01-2022 17:45-0400 Hourly Rounding Luis Carlos Jung [facility] Comment on above: Result Comment: revi ewed disch inst and meds to take states understanding 05-01-2022 17:30-0400 Hourly Rounding Luis Carlos Jung [facility] 05-01-2022 17:23-0400 Body temperature 98.06 [degF] Luis Carlos Jung [facility] 05-01-2022 17:23-0400 Diastolic blood pressure 57 mm[Hg] Luis Carlos Jung [facility] 05-01-2022 17:23-0400 Heart rate 83 /min Luis Carlos Jung [facility] 05-01-2022 17:23-0400 Mean blood pressure 71 mm[Hg] Luis Carlos Jung [facility] 05-01-2022 17:23-0400 Respiratory rate 16 /min Luis Carlos Jung [facility] 05-01-2022 17:23-0400 Systolic blood pressure 99 mm[Hg] Luis Carlos Jung [facility] 05-01-2022 17:15-0400 Blood Pressure Location Luis Carlos Jung [facility] 05-01-2022 17:15-0400 Hourly Rounding Luis Carlos Jung [facility] 04-02-2022 13:30-0400 Hourly Rounding Luis Carlos Jung [facility] Comment on above: Result Comment: pt g omid discharge instructions at this time to follow up with fabiana sunday or states understanding to call office tomorrow for appointment 04-02-2022 12:30-0400 Hourly Rounding Armando Jung [facility] Comment on above: Result Comment: pt r eturns to bed from restroom at this time denies discomfort at this time 04-02-2022 11:30-0400 Hourly Rounding Armando Jung [facility] Comment on above: Result Comment: pt s itting in bed at this time denies needs or discomfort 04-02-2022 06:28-0400 Body temperature 99.68 [degF] Luis Carlos Jung [facility] 04-02-2022 06:28-0400 Diastolic blood pressure 68 mm[Hg] Luis Carlos Jung [facility] 04-02-2022 06:28-0400 Heart rate 89 /min Luis Carlos Jung [facility] 04-02-2022 06:28-0400 Heart rate 86 /min Luis Carlos Jung [facility] 04-02-2022 06:28-0400 Mean blood pressure 83 mm[Hg] Luis Carlos Jung [facility] 04-02-2022 06:28-0400 Respiratory rate 20 /min Luis Carlos Jung [facility] 04-02-2022 06:28-0400 SaO2% (BldA) [Mass fraction] 98 % Luis Carlos Jung [facility] 04-02-2022 06:28-0400 Systolic blood pressure 114 mm[Hg] Luis Carlos Jung [facility] 03-23-2022 21:08-0400 Hourly Rounding Luis Carlos Jung [facility] Comment on above: Result Comment: Raeann ent ambulatory off unit. No signs or symptoms of distress noted. 03-23-2022 20:35-0400 Hourly Rounding Armando Jung [facility] Comment on above: Result Comment: Raeann ent updated on plan of care. Verbalizes understanding. Call light in reach. 03-23-2022 19:49-0400 Blood Pressure Location Luis Carlos Jung [facility] 03-23-2022 19:49-0400 Body temperature 98.78 [degF] Luis Carlos Jung [facility] 03-23-2022 19:49-0400 Diastolic blood pressure 66 mm[Hg] Luis Carlos Jung [facility] 03-23-2022 19:49-0400 Heart rate 69 /min Luis Carlos Jung [facility] 03-23-2022 19:49-0400 Hourly Rounding Luis Carlos Jung [facility] Comment on above: Result Comment: Raeann ent arrives on unit. 03-23-2022 19:49-0400 Mean blood pressure 79 mm[Hg] Luis Carlos Jung [facility] 03-23-2022 19:49-0400 Respiratory rate 16 /min Luis Carlos Jung [facility] 03-23-2022 19:49-0400 Systolic blood pressure 106 mm[Hg] Luis Carlos Jung [facility] 10-14-2020 13:15-0500 Pulse (Heart Rate) 74 /min [facility] 10-14-2020 13:15-0500 Pulse Oximetry 98 % [facility] 10-14-2020 13:15-0500 Respiratory Rate 16 /min [facility] 10-14-2020 13:00-0500 BP Diastolic 74 mm[Hg] [facility] 10-14-2020 13:00-0500 BP Systolic 123 mm[Hg] [facility] 10-14-2020 10:13-0500 BMI (Body Mass Index) 34.33 kg/m2 [facility] 10-14-2020 10:13-0500 Body Temperature 97.81 [degF] [facility] 10-14-2020 10:13-0500 Body weight 90.72 kg [facility] 10-14-2020 10:13-0500 Height 162.6 cm [facility] 08-09-2020 20:33-0400 BP Diastolic 81 mm[Hg] [facility] [place] [facility]-2020 20:33-0400 BP Systolic 122 mm[Hg] [facility] [place] 08-09-2020 20:33-0400 Pulse (Heart Rate) 78 /min [facility] [place] 08-09-2020 20:33-0400 Respiratory Rate 16 /min [facility] [place] [place] 08-09-2020 19:03-0400 BMI (Body Mass Index) 39.48 kg/m2 [facility] [place] 08-09-2020 19:03-0400 Body Temperature 98.29 [degF] [facility] [place] 08-09-2020 19:03-0400 Body weight 104.33 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 ZORAN J ELEN Facility:[facility] Start: 08-19-2023 End: 09-14-2023 Pre-admission assessment Julia DukePatricia Haywood [facility] Start: 08-18-2023 End: 08-18-2023 ambulatory DO Julia Gonsalez Isaiahkristina Facility:[facility] Start: 08-18-2023 End: 08-18-2023 OB Triage Julia Gonsalez Yobany [facility] Start: 07-25-2023 End: 07-25-2023 Emergency department patient visit Kristian Guillermo Facility:[facility] Start: 07-25-2023 End: 07-25-2023 Emergency department patient visit Kristian Guillermo [facility] Start: 06-28-2023 End: 06-29-2023 ambulatory Roverto V. Spasic Facility:[facility] Start: 06-28-2023 End: 06-28-2023 Patient encounter procedure Roverto V. Spasic [facility] Start: 06-14-2023 End: 06-14-2023 Emergency department patient visit Kristian Guillermo Facility:[facility] Start: 06-14-2023 End: 06-14-2023 Emergency department patient visit Kristian Guillermo [facility] Start: 06-12-2023 End: 06-13-2023 ambulatory Luis Carlos Jung Facility:[facility] Start: 06-12-2023 End: 06-12-2023 Patient encounter procedure Luis Carlos Jung [facility] Start: 05-21-2023 End: 05-22-2023 Emergency department patient visit DO Gopi Rodriguez Facility:[facility] Start: 05-21-2023 End: 05-21-2023 Emergency department patient visit Gopi Rodriguez [facility] Start: 04-30-2023 End: 05-01-2023 ambulatory Luis Carlos Rochelle Jung Facility:[facility] Start: 04-30-2023 End: 04-30-2023 Lab Drop off Luis Carlos Rochelle Jung [facility] Start: 04-30-2023 End: 05-01-2023 ambulatory Luis Carlos Rochelel Jung Facility:[facility] Start: 04-30-2023 End: 04-30-2023 Patient encounter procedure Luis Carlos Jung [facility] Start: 04-26-2023 End: 04-26-2023 Emergency department patient visit Laura Leonfelipe Facility:[facility] Start: 04-26-2023 End: 04-26-2023 Emergency department patient visit Laura Araceli Bert [facility] Start: 01-31-2023 End: 01-31-2023 Emergency department patient visit Kristian Guillermo Facility:[facility] Start: 01-31-2023 End: 01-31-2023 Emergency department patient visit Kristian Guillermo [facility] Start: 09-24-2022 End: 09-27-2022 Evaluation and management of inpatient Luis Carlos Byrd Fabiana Facility:[facility] Start: 09-22-2022 End: 09-22-2022 ambulatory Luis Carlos Montesinosten Facility:[facility] Start: 09-22-2022 End: 09-22-2022 OB Triage Luis Carlos Jung [facility] Start: 09-20-2022 End: 09-20-2022 ambulatory Luis Carlos Jung Facility:[facility] Start: 09-20-2022 End: 09-20-2022 OB Triage Luis Carlos Jung [facility] Start: 09-19-2022 End: 09-19-2022 ambulatory Jj MIKE Facility:[facility] Start: 09-19-2022 End: 09-19-2022 OB Triage Jj MIKE [facility] Start: 09-14-2022 End: 09-14-2022 ambulatory Luis Carlos Rochelle Jung Facility:[facility] Start: 09-14-2022 Emergency department patient visit DO Gopi Rodriguez Facility:[facility] Start: 09-14-2022 End: 09-14-2022 OB Triage Luis Carlos Jung [facility] Start: 09-12-2022 End: 09-12-2022 ambulatory Luis Carlos Jung Facility:[facility] Start: 09-12-2022 End: 09-12-2022 OB Triage Luis Carlos Jung [facility] Start: 09-08-2022 End: 09-08-2022 ambulatory Luis Carlos Jung Facility:[facility] Start: 09-08-2022 End: 09-08-2022 OB Triage Luis Carlos Jung [facility] Start: 09-06-2022 End: 12-06-2022 ambulatory Luis Carlos Rochelle Jung Facility:[facility] Start: 09-05-2022 End: 09-06-2022 Emergency department patient visit DO Carrolemilee Rodriguez Facility:[facility] Start: 09-05-2022 End: 09-05-2022 Emergency department patient visit Gopi Rodriguez [facility] Start: 09-05-2022 End: 12-05-2022 Patient encounter procedure SELF REFERRAL [facility] Start: 09-04-2022 End: 09-05-2022 ambulatory Luis Carlos Rochelle Jung Facility:[facility] Start: 09-04-2022 End: 09-04-2022 Lab Drop off Luis Carlos Rochelle Jung [facility] Start: 08-30-2022 End: 08-31-2022 ambulatory Luis Carlos Rochelle Jung Facility:[facility] Start: 08-30-2022 End: 08-31-2022 OB Triage Luis Carlos Rochelle Jung [facility] Start: 08-22-2022 End: 08-22-2022 OB Triage Luis Carlos Rochelle Jung [facility] Start: 08-18-2022 End: 08-18-2022 OB Triage Luis Carlos Jung [facility] Start: 08-13-2022 End: 08-13-2022 OB Triage Luis Carlos Jung [facility] Start: 07-26-2022 End: 07-26-2022 OB Triage Luis Carlos Rochelle Jung [facility] Start: 07-17-2022 End: 07-17-2022 Emergency department patient visit Ko Dumas [facility] Start: 06-28-2022 End: 06-28-2022 Patient encounter procedure Luis Carlos Jung [facility] Start: 06-26-2022 End: 06-26-2022 OB Triage Luis Carlos Jung [facility] Start: 06-20-2022 End: 07-15-2022 Pre-admission assessment Luis Carlos Jung [facility] Start: 06-18-2022 End: 06-19-2022 OB Triage Luis Carlos Jung [facility] Start: 05-02-2022 End: 06-15-2022 Pre-admission assessment THANG MILLAN [facility] Start: 05-01-2022 End: 05-01-2022 OB Triage Luis Carlos Jung [facility] Start: 04-02-2022 End: 04-02-2022 OB Triage Luis Carlos Jung [facility] Start: 03-23-2022 End: 03-23-2022 OB Triage Luis Carlos Jung [facility] Start: 03-16-2022 End: 03-16-2022 Patient encounter procedure Luis Carlos Rochelle Jung [facility] Start: 02-15-2022 End: 02-15-2022 Lab Drop off Luis Carlos Byrd Fabiana [facility] Start: 02-23-2021 End: 02-23-2021 Patient encounter procedure Martha Webb MD Work Phone: [facility] Start: 02-23-2021 Results Only Martha Webb MD Work Phone: Gastroenterology Start: 10-14-2020 End: 10-14-2020 Emergency department patient visit PHYSICIAN RONN [facility] Start: 10-14-2020 End: 10-14-2020 Emergency department patient visit Regine Chow Work Phone: [facility] Emergency Department Comment on above: Vertigo (Primary Dx) Start: 08-09-2020 End: 08-09-2020 Emergency department patient visit [facility] Start: 08-09-2020 End: 08-09-2020 Emergency department patient visit [facility] Work Phone: [facility] ED Comment on above: Contusion of right k nee, initial encounter (Primary Dx); Contusion of multiple sites of right shoulder and upper arm, initial encounter Start: 07-23-2017 End: 07-23-2017 Emergency department patient visit NKECHI TORRES [facility] Guerra Procedures Date Procedure Procedure Detail Performing Clinician Start: 02-23-2021 PT ED PATIENT INFORMATION Martha Webb MD Work Phone: Start: 10-14-2020 CT of head without contrast Susan Griffiths Work Phone: Start: 10-14-2020 LIGHT BLUE TOP Regine Chow Work Phone: Start: 10-14-2020 LIGHT GREEN TOP Regine Chow Work Phone: Start: 10-14-2020 Basic metabolic 1998 panel - Serum or Plasma Susan Griffiths Work Phone: Start: 10-14-2020 Complete blood count with white cell differential, automated Susan Margarita Madhavlod Work Phone: Start: 10-14-2020 Complete blood count with white cell differential, manual Susan Margarita Guillod Work Phone: Start: 10-14-2020 COVID-19/INFLUENZA A,B MOLECULAR Susan Griffiths Work Phone: Start: 10-14-2020 Choriogonadotropin ( test) [Presence] in Urine Regine Ezra Work Phone: Start: 10-14-2020 End: 10-14-2020 RAINBOW DRAW Regine Chow Work Phone: Start: 10-14-2020 Urinalysis Regine Chow Work Phone: Start: 10-14-2020 URINE CONTAINER Regine Chow Work Phone: Start: 08-09-2020 Radex elbow [address] Start: 08-09-2020 Radex shoulder complete minimum [address] Start: 08-09-2020 Radiologic examination femur minimum [address] Start: 08-09-2020 Radiologic examination knee [address] Start: 08-09-2020 Urine test visual color cmprsn meths [address] Start: 08-09-2020 Radex elbow [address] Work Phone: Start: 08-09-2020 Radex shoulder complete minimum [address] Work Phone: Start: 08-09-2020 Radiologic examination femur minimum [address] Work Phone: Start: 08-09-2020 Radiologic examination knee [address] Work Phone: Start: 08-09-2020 Urine test visual color cmprsn meths [address] Work Phone: Incision of gallbladder Adán Jung Plan of Treatment Date Care Activity Detail Author Start: 05-12-2028 Tetanus vaccination Tetanus: Every 1 0yrs [facility] Start: 06-15-2021 Influenza vaccination INFLUENZ A (Season Ended) [facility] Start: 06-15-2020 Influenza vaccination Flu vaccine (# 1) [place] Start: 2014 PAP TESTING PAP TESTING [facility] Start: 2014 Screening for malign ant neoplasm of cervix Cervical cancer screen [place] Start: 2012 DTaP/Tdap/Td vaccine (1 - Tdap) DTaP/Tdap/Td vaccine (1 - Tdap) [place] Start: 2012 Urine microalbumin profile DTAP,TDAP,TD (1 - Tdap) [facility] Start: 2011 Hepatitis C antibody , confirmatory test Hepatitis C Screening [facility] Start: 2011 HEPATITIS C SCREENING HEPATITIS C SC REENING [facility] Start: 2011 HIV SCREENING HIV SCREENING [facility] Start: 2008 [facility] screening [facility] [place] [place] Start: 2005 Adolescent depressio n screening assessment [facility] Start: 2004 HPV vaccine (1 - 2-d ose series) HPV vaccine (1 - 2-dose series) [place] Start: 1996 History and physical examination, annual for health maintenance Wellness Visit [facility] Start: 1994 Varicella vaccine (1 of 2 - 2-dose childhood series) Varicella vaccine (1 of 2 - 2-dose childhood series) [place] Start: 1993 Screening for malign ant neoplasm of cervix Pap Smear [facility] PT ED PATIENT INFORMATION PT ED PATIENT INFORMATION Other 02/23/2021 [facility] Immunizations Immunization Date Immunization Notes Care Provider Lennox ramirez 08-18-2023 influenza, seasonal, injectable Julia Haywood [facility] 09-25-2022 influenza, seasonal, injectable SELF REFERRAL [facility] Comment on above: Early/Late Reason: E isaac/Late Reason: Nursing Judgment 01-28-2021 COVID-19, mRNA, LNP- S, PF, 30 mcg/0.3 mL dose; Translations: [[employer] COVID-19 Vaccine] Luis Carlos Jung [facility] Comment on above: Reason for Medicatio n: Prophylaxis Reason for Medicatio n: Prophylaxis 12-31-2020 COVID-19, mRNA, LNP- S, PF, 30 mcg/0.3 mL dose; Translations: [Pfizer-BioNTech COVID-19 Vaccine] Luis Carlos Jung [facility] Comment on above: Reason for Medicatio n: Prophylaxis Reason for Medicatio n: Prophylaxis 05-12-2018 tetanus toxoid, redu shana diphtheria toxoid, and acellular pertussis vaccine, adsorbed; Translations: [Adacel (Tdap)] Luis Carlos Jung [facility] Payers Date Payer Category Payer Unknown [id number] 2019 Unknown [id number] 1993 Unknown [id number] 2.16.8 40.1.102410.3.579.2.173 1993 Unknown [id number] 2.16. 840.1.028517.3.579.2.903 1993 Unknown [id number] 2.16.8 40.1.653874.3.579.2.727 1993 Unknown [id number] 2.16.8 40.1.423046.3.579.2.727 1993 Unknown [id number] 2.16.8 40.1.412572.3.579.2.727 1993 Unknown [id number] 2.16.8 40.1.228336.3.579.2.727 1993 Unknown [id number] 2.16.8 40.1.185199.3.579.2.727 1993 Unknown [id number] 2.16.8 40.1.056140.3.579.2.727 1993 Unknown [id number] 2.16.8 40.1.225206.3.579.2.727 1993 Unknown [id number] 2.16.8 40.1.259098.3.579.2.727 1993 Unknown [id number] 2.16.8 40.1.664171.3.579.2.727 1993 Unknown [id number] 2.16.8 40.1.118867.3.579.2.727 1993 Unknown [id number] 2.16.8 40.1.526131.3.579.2.72 1993 Unknown [id number] 2.16.8 40.1.963773.3.579.2.72 1993 Unknown [id number] 2.16.8 40.1.148074.3.579.2. 1993 Unknown [id number] 2.16.8 40.1.513654.3.579.2.72 1993 Unknown [id number] 2.16.8 40.1.324798.3.579.2. 1993 Unknown [id number] 2.16.8 40.1.766441.3.579.2.72 1993 Unknown [id number] 2.16.8 40.1.010574.3.579.2. 1993 Unknown [id number] 2.16.8 40.1.443305.3.579.2.7 1993 Unknown [id number] 2.16.8 40.1.577373.3.579.2.72 1993 Unknown [id number] 2.16.8 40.1.718839.3.579.2.72 1993 Unknown [id number] 2.16.8 40.1.892517.3.579.2.72 1993 Unknown [id number] 2.16.8 40.1.886537.3.579.2.72 1993 Unknown [id number] 2.16.8 40.1.549360.3.579.2.72 1993 Unknown [id number] 2.16.8 40.1.054742.3.579.2.727 1993 Unknown [id number] 2.16.840 .1.822562.3.579.2.1259 Social History Date Type Detail Facility Start: 08-09-2020 End: 10-14-2020 Tobacco smoking status NHIS Current every day smoker [place] Start: 08-09-2020 End: 10-14-2020 Tobacco use and exposure Never used [place] Start: 10-14-2020 Alcohol intake Ex-drinker (finding) [facility] Start: 1993 Sex Assigned At Not on file [place] Exposure to SARS-CoV -2 (event) Not sure [place] Start: 08-09-2020 Cigarettes smoked current (pack per day) - Reported [place] Start: 08-09-2020 Alcohol intake Lifetime non-d val (finding) [place] Start: 08-09-2020 History SDOH Alcohol Frequency 1 [place] Start: 07-06-2021 End: 08-18-2022 Tobacco smoking status Light tobacco smoker (finding) [facility] Sex Assigned At Female [facility] Tobacco [facility] Comment on above: current current denies Start: 06-28-2023 Tobacco smoking status Ex-smoker (finding) [facility] Comment on above: current Tobacco [facility] status [facility] Comment on above: current Tobacco smoking status No Smoking Status Entered [facility] Functional Status Date Assessment Result Facility 08-18-2023 Functional Status N/A [facility] 07-25-2023 Functional Status N/A [facility] 06-28-2023 Functional Status N/A [facility] 06-14-2023 Functional Status N/A [facility] 05-21-2023 Functional Status N/A [facility] 04-26-2023 Functional Status N/A [facility] 01-31-2023 Functional Status N/A [facility] 09-22-2022 Functional Status N/A [facility] 09-20-2022 Functional Status N/A [facility] 09-19-2022 Functional Status N/A [facility] 09-14-2022 Functional Status N/A [facility] 09-12-2022 Functional Status N/A [facility] 09-08-2022 Functional Status N/A [facility] 09-05-2022 Functional Status Yes [facility] 08-30-2022 Functional Status N/A [facility] 08-22-2022 Functional Status N/A [facility] 08-18-2022 Functional Status N/A [facility] 08-13-2022 Functional Status N/A [facility] 07-26-2022 Functional Status N/A [facility] 07-17-2022 Functional Status N/A [facility] 06-26-2022 Functional Status N/A [facility] 06-18-2022 Functional Status N/A [facility] 05-01-2022 Functional Status N/A [facility] 04-02-2022 Functional Status N/A [facility] Clinical Notes 03-10-2021 to 08-23-2023 Note Date & Type Note Facility 08-23-2023 Evaluation + Plan note Diagnostic Tests PendingT3 Total 08/23/23 [facility] 08-18-2023 Note The following Patien t Education Materials have been given to the patient: [facility] 08-18-2023 Hospital Discharg e instructions Patient Education 08/18/2023 08:14:46 Second Trimester of , Gfgw-ao-Uiyr Second Trimester of The second trimester of is from week 13 through week 27. This is also called months 4 through 6 of . This is often the time when you feel your best. During the second trimester: Morning sickness is less or has stopped. You may have more energy. You may feel hungry more often. At this time, your unborn baby (fetus) is growing very fast. At the end of the sixth month, the unborn baby may be up to 12 inches long and weigh about 1 pounds. You will likely start to feel the baby move between 16 and 20 weeks of . Body changes during your second trimester Your body continues to go through many changes during this time. The changes vary and generally return to normal after the baby is born. Physical changes You will gain more weight. You may start to get stretch radford on your hips, belly (abdomen), and breasts. Your breasts will grow and may hurt. Dark spots or blotches may develop on your face. A dark line from your belly button to the pubic area (linea nigra) may appear. You may have changes in your hair. Health changes You may have headaches. You may have heartburn. You may have trouble pooping (constipation). You may have hemorrhoids or swollen, bulging veins (varicose veins). Your gums may bleed. You may pee (urinate) more often. You may have back pain. Follow these instructions at home: Medicines Take byqt-fvz-supplpi and prescription medicines only as told by your doctor. Some medicines are not safe during . Take a vitamin that contains at least 600 micrograms (mcg) of folic acid. Eating and drinking Eat healthy meals that include: ?Fresh fruits and vegetables. ?Whole grains. ?Good sources of protein, such as meat, eggs, or tofu. ?Low-fat dairy products. Avoid raw meat and unpasteurized juice, milk, and cheese. You may need to take these actions to prevent or treat trouble pooping: ?Drink enough fluids to keep your pee (urine) pale yellow. ?Eat foods that are high in fiber. These include beans, whole grains, and fresh fruits and vegetables. ?Limit foods that are high in fat and sugar. These include fried or sweet foods. Activity Exercise only as told by your doctor. Most people can do their usual exercise during . Try to exercise for 30 minutes at least 5 days a week. Stop exercising if you have pain or cramps in your belly or lower back. Do not exercise if it is too hot or too humid, or if you are in a place of great height (high altitude). Avoid heavy lifting. If you choose to, you may have sex unless your doctor tells you not to. Relieving pain and discomfort Wear a good support bra if your breasts are sore. Take warm water baths (sitz baths) to soothe pain or discomfort caused by hemorrhoids. Use hemorrhoid cream if your doctor approves. Rest with your legs raised (elevated) if you have leg cramps or low back pain. If you develop bulging veins in your legs: ?Wear support hose as told by your doctor. ?Raise your feet for 15 minutes, 3 4 times a day. ?Limit salt in your food. Safety Wear your seat belt at all times when you are in a car. Talk with your doctor if someone is hurting you or yelling at you a lot. Lifestyle Do not use hot tubs, steam rooms, or saunas. Do not douche. Do not use tampons or scented sanitary pads. Avoid cat litter boxes and soil used by cats. These carry germs that can harm your baby and can cause a loss of your baby by miscarriage or stillbirth. Do not use herbal medicines, illegal drugs, or medicines that are not approved by your doctor. Do not drink alcohol. Do not smoke or use any products that contain nicotine or tobacco. If you need help quitting, ask your doctor. General instructions Keep all follow-up visits. This is important. Ask your doctor about local classes. Ask your doctor about the right foods to eat or for help finding a counselor. Where to find more information [place] Association: americanpregnancy.org [employer]: www.acog.org Office on Women's Health: womenshealth.gov/ Contact a doctor if: You have a headache that does not go away when you take medicine. You have changes in how you see, or you see spots in front of your eyes. You have mild cramps, pressure, or pain in your lower belly. You continue to feel like you may vomit (nauseous), you vomit, or you have watery poop (diarrhea). You have bad-smelling fluid coming from your vagina. You have pain when you pee or your pee smells bad. You have very bad swelling of your face, hands, ankles, feet, or legs. You have a fever. Get help right away if: You are leaking fluid from your vagina. You have spotting or bleeding from your vagina. You have very bad belly cramping or pain. You have trouble breathing. You have chest pain. You faint. You have not felt your baby move for the time period told by your doctor. You have new or increased pain, swelling, or redness in an arm or leg. Summary The second trimester of is from week 13 through week 27 (months 4 through 6). Eat healthy meals. Exercise as told by your doctor. Most people can do their usual exercise during . Do not use herbal medicines, illegal drugs, or medicines that are not approved by your doctor. Do not drink alcohol. Call your doctor if you get sick or if you notice anything unusual about your . This information is not intended to replace advice given to you by your health care provider. Make sure you discuss any questions you have with your health care provider. Document Revised: 03/09/2021 Document Reviewed: 01/13/2021 [employer] Patient Education 2022 [employer]. [facility] 07-25-2023 Evaluation + Plan note Extrac francisca from: Title:ED Note Author:Jorge Velarde PA-C David e:07/25/23 Abdominal cramping (R10.9: U nspecified abdominal pain) Vaginal spotting (N93.9: Abnormal uterine and vaginal bleeding, unspecified) Orders: ABO/Rh Automated Diff Basic Metabolic Panel Beta hCG Quantitative CBC w/ Auto Diff eGFR Extra Blue Tube Extra SST Tube Hepatic Function Panel Lipase Level UA With Cult Reflex Urine Culture US Limited Diagnostic Tests Pending * Urine Culture 07/25/23 [facility]10-11-2023 Hospital Discharge instructions Patient Education 07/25/2023 09:56:41 Abdominal Pain During Abdominal Pain During Abdominal pain is common during and has many possible causes. Some causes are more serious than others, and sometimes the cause is not known. Abdominal pain can be a sign that labor is starting. It can also be caused by normal growth of yourbaby causing stretching of muscles and ligaments during . Always tell your health care provider if you have any abdominal pain. Follow these instructions at home: Do not have sex or put anything in your vagina until your pain goes away completely. Get plenty of rest until your pain improves. Drink enough fluid to keep your urine pale yellow. Take mzzm-aul-spnmvrl and prescription medicines only as told by your health care provider. Keep all follow-up visits. This is important. Contact a health care provider if: Your pain continues or gets worse after resting. You have lower abdominal pain that: ?Comes and goes at regular intervals. ?Spreads to your back. ?Is similar to menstrual cramps. You have pain or burning when you urinate. Get help right away if: You have a fever, chills, or shortness of breath. You have vaginal bleeding. You are leaking fluid or passing tissue from your vagina. You have vomiting or diarrhea that lasts for more than 24 hours. Your baby is moving less than usual. You feel very weak or faint. You develop severe pain in your upper abdomen. Summary Abdominal pain is common during and has many possible causes. If you experience abdominal pain during , tell your health care provider right away. Follow your health care provider's home care instructions and keep all follow-up visits as told. This information is not intended to replace advice given to you by your health care provider. Make sure you discuss any questions you have with your health care provider. Document Revised: 06/14/2021 Document Reviewed: 06/14/2021 [employer] Patient Education 2022 [employer] Follow Up Care 07/25/2023 08:14:26 With:Luis Carlos Jung Address: [address] [place] [id number] [facility] (1) When:07/28/2023 09:56:27 [facility]09-14-2023 Evaluation + Plan note Diagnostic Tests Pending * Urine Culture 06/28/23 [facility]09-14-2023 Hospital Discharge instructions Patient Education 06/28/2023 11:39:14 Urinary Tract Infection, Adult, Vjuj-la-Oqdy Urinary Tract Infection, Adult A urinary tract infection (UTI) is an infection of any part of the urinary tract. The urinary tractincludes: The kidneys. The ureters. The bladder. The urethra. These organs make, store, and get rid of pee (urine) in the body. What are the causes? This infection is caused by germs (bacteria) in your genital area. These germs grow and cause swelling (inflammation) of your urinary tract. What increases the risk? The following factors may make you more likely to develop this condition: Using a small, thin tube (catheter) to drain pee. Not being able to control when you pee or poop (incontinence). Being female. If you are female, these things can increase the risk: ?Using these methods to prevent : ?A medicine that kills sperm (spermicide). ?A device that blocks sperm (diaphragm). ?Having low levels of a female hormone (estrogen). ?Being . You are more likely to develop this condition if: You have genes that add to your risk. You are sexually active. You take antibiotic medicines. You have trouble peeing because of: ?A prostate that is bigger than normal, if you are male. ?A blockage in the part of your body that drains pee from the bladder. ?A kidney stone. ?A nerve condition that affects your bladder. ?Not getting enough to drink. ?Not peeing often enough. You have other conditions, such as: ?Diabetes. ?A weak disease-fighting system (immune system). ?Sickle cell disease. ?Gout. ?Injury of the spine. What are the signs or symptoms? Symptoms of this condition include: Needing to pee right away. Peeing small amounts often. Pain or burning when peeing. Blood in the pee. Pee that smells bad or not like normal. Trouble peeing. Pee that is cloudy. Fluid coming from the vagina, if you are female. Pain in the belly or lower back. Other symptoms include: Vomiting. Not feeling hungry. Feeling mixed up (confused). This may be the first symptom in older adults. Being tired and grouchy (irritable). A fever. Watery poop (diarrhea). How is this treated? Taking antibiotic medicine. Taking other medicines. Drinking enough water. In some cases, you may need to see a specialist. Follow these instructions at home: Medicines Take ldrz-dfl-sxcpmet and prescription medicines only as told by your doctor. If you were prescribed an antibiotic medicine, take it as told by your doctor. Do not stop taking it even if you start to feel better. General instructions Make sure you: ?Pee until your bladder is empty. ?Do not hold pee for a long time. ?Empty your bladder after sex. ?Wipe from front to back after peeing or pooping if you are a female. Use each tissue one time whenyou wipe. Drink enough fluid to keep your pee pale yellow. Keep all follow-up visits. Contact a doctor if: You do not get better after 1 2 days. Your symptoms go away and then come back. Get help right away if: You have very bad back pain. You have very bad pain in your lower belly. You have a fever. You have chills. You feeling like you will vomit or you vomit. Summary A urinary tract infection (UTI) is an infection of any part of the urinary tract. This condition is caused by germs in your genital area. There are many risk factors for a UTI. Treatment includes antibiotic medicines. Drink enough fluid to keep your pee pale yellow. This information is not intended to replace advice given to you by your health care provider. Make sure you discuss any questions you have with your health care provider. Document Revised: 05/13/2021 Document Reviewed: 05/13/2021 [employer] Patient Education 2022 [employer]. 06/28/2023 11:39:14 Urinary Tract Infection, Adult, Wpus-cn-Vkmz Urinary Tract Infection, Adult A urinary tract infection (UTI) is an infection of any part of the urinary tract. The urinary tractincludes: The kidneys. The ureters. The bladder. The urethra. These organs make, store, and get rid of pee (urine) in the body. What are the causes? This infection is caused by germs (bacteria) in your genital area. These germs grow and cause swelling (inflammation) of your urinary tract. What increases the risk? The following factors may make you more likely to develop this condition: Using a small, thin tube (catheter) to drain pee. Not being able to control when you pee or poop (incontinence). Being female. If you are female, these things can increase the risk: ?Using these methods to prevent : ?A medicine that kills sperm (spermicide). ?A device that blocks sperm (diaphragm). ?Having low levels of a female hormone (estrogen). ?Being . You are more likely to develop this condition if: You have genes that add to your risk. You are sexually active. You take antibiotic medicines. You have trouble peeing because of: ?A prostate that is bigger than normal, if you are male. ?A blockage in the part of your body that drains pee from the bladder. ?A kidney stone. ?A nerve condition that affects your bladder. ?Not getting enough to drink. ?Not peeing often enough. You have other conditions, such as: ?Diabetes. ?A weak disease-fighting system (immune system). ?Sickle cell disease. ?Gout. ?Injury of the spine. What are the signs or symptoms? Symptoms of this condition include: Needing to pee right away. Peeing small amounts often. Pain or burning when peeing. Blood in the pee. Pee that smells bad or not like normal. Trouble peeing. Pee that is cloudy. Fluid coming from the vagina, if you are female. Pain in the belly or lower back. Other symptoms include: Vomiting. Not feeling hungry. Feeling mixed up (confused). This may be the first symptom in older adults. Being tired and grouchy (irritable). A fever. Watery poop (diarrhea). How is this treated? Taking antibiotic medicine. Taking other medicines. Drinking enough water. In some cases, you may need to see a specialist. Follow these instructions at home: Medicines Take jbzx-jcw-ivxfhme and prescription medicines only as told by your doctor. If you were prescribed an antibiotic medicine, take it as told by your doctor. Do not stop taking it even if you start to feel better. General instructions Make sure you: ?Pee until your bladder is empty. ?Do not hold pee for a long time. ?Empty your bladder after sex. ?Wipe from front to back after peeing or pooping if you are a female. Use each tissue one time whenyou wipe. Drink enough fluid to keep your pee pale yellow. Keep all follow-up visits. Contact a doctor if: You do not get better after 1 2 days. Your symptoms go away and then come back. Get help right away if: You have very bad back pain. You have very bad pain in your lower belly. You have a fever. You have chills. You feeling like you will vomit or you vomit. Summary A urinary tract infection (UTI) is an infection of any part of the urinary tract. This condition is caused by germs in your genital area. There are many risk factors for a UTI. Treatment includes antibiotic medicines. Drink enough fluid to keep your pee pale yellow. This information is not intended to replace advice given to you by your health care provider. Make sure you discuss any questions you have with your health care provider. Document Revised: 05/13/2021 Document Reviewed: 05/13/2021 [employer] Patient Education 2022 [employer]. Follow Up Care 06/28/2023 10:22:58 With:Fabiana MARION, Luis Carlos Byrd, SAMPSON Address: [address] [place] [address] [place], [address] [id number]- When: Unknown [facility] 08-31-2023 Evaluation + Plan noteExtracted from: Title:ED Note Author:Jos Ugalde PA-C te:06/14/23 1. Abdominal pain (R10.9: Un specified abdominal pain) Orders: ABO/Rh Automated Diff Basic Metabolic Panel Beta hCG Quantitative CBC w/ Auto Diff eGFR Extra Blue Tube Extra SST Tube Hepatic Function Panel Lipase Level UA With Cult Reflex US 1st Trimester [facility]08-08-2023 Hospital Discharge instructions Patient Education 05/21/2023 23:23:44 Nonspecific Chest Pain, Adult, Ardh-fc-Mqjg Nonspecific Chest Pain Chest pain can be caused by many different conditions. Some causes of chest pain can be life-threatening. These will require treatment right away. Serious causes of chest pain include: Heart attack. A tear in the body's main blood vessel. Redness and swelling (inflammation) around your heart. Blood clot in your lungs. Other causes of chest pain may not be so serious. These include: Heartburn. Anxiety or stress. Damage to bones or muscles in your chest. Lung infections. Chest pain can feel like: Pain or discomfort in your chest. Crushing, pressure, aching, or squeezing pain. Burning or tingling. Dull or sharp pain that is worse when you move, cough, or take a deep breath. Pain or discomfort that is also felt in your back, neck, jaw, shoulder, or arm, or pain that spreads to any of these areas. It is hard to know whether your pain is caused by something that is serious or something that is not so serious. So it is important to see your doctor right away if you have chest pain. Follow these instructions at home: Medicines Take lejr-eoe-verllgg and prescription medicines only as told by your doctor. If you were prescribed an antibiotic medicine, take it as told by your doctor. Do not stop taking the antibiotic even if you start to feel better. Lifestyle Rest as told by your doctor. Do not use any products that contain nicotine or tobacco, such as cigarettes, e- cigarettes, and chewing tobacco. If you need help quitting, ask your doctor. Do not drink alcohol. Make lifestyle changes as told by your doctor. These may include: ?Getting regular exercise. Ask your doctor what activities are safe for you. ?Eating a heart-healthy diet. A diet and food and nutrition teacher (dietitian) can help you to learn healthy eating options. ?Staying at a healthy weight. ?Treating diabetes or high blood pressure, if needed. ?Lowering your stress. Activities such as yoga and relaxation techniques can help. General instructions Pay attention to any changes in your symptoms. Tell your doctor about them or any new symptoms. Avoid any activities that cause chest pain. Keep all follow-up visits as told by your doctor. This is important. You may need more testing if your chest pain does not go away. Contact a doctor if: Your chest pain does not go away. You feel depressed. You have a fever. Get help right away if: Your chest pain is worse. You have a cough that gets worse, or you cough up blood. You have very bad (severe) pain in your belly (abdomen). You pass out (faint). You have either of these for no clear reason: ?Sudden chest discomfort. ?Sudden discomfort in your arms, back, neck, or jaw. You have shortness of breath at any time. You suddenly start to sweat, or your skin gets clammy. You feel sick to your stomach (nauseous). You throw up (vomit). You suddenly feel lightheaded or dizzy. You feel very weak or tired. Your heart starts to beat fast, or it feels like it is skipping beats. These symptoms may be an emergency. Do not wait to see if the symptoms will go away. Get medical help right away. Call your local emergency services (911 in the [place] Do not drive yourself to the hospital. Summary Chest pain can be caused by many different conditions. The cause may be serious and need treatment right away. If you have chest pain, see your doctor right away. Follow your doctor's instructions for taking medicines and making lifestyle changes. Keep all follow-up visits as told by your doctor. This includes visits for any further testing if your chest pain does not go away. Be sure to know the signs that show that your condition has become worse. Get help right away if you have these symptoms. This information is not intended to replace advice given to you by your health care provider. Make sure you discuss any questions you have with your health care provider. Document Revised: 12/15/2021 Document Reviewed: 12/15/2021 [employer] Patient Education 2022 [employer]. 05/21/2023 23:23:44 Nausea and Vomiting, Adult, Pebt-jk-Qslh Nausea and Vomiting, Adult Nausea is feeling that you have an upset stomach and that you are about to vomit. Vomiting is when food in your stomach forcefully comes out of your mouth. Vomiting can make you feel weak. If you vomit, or if you are not able to drink enough fluids, you may not have enough water in your body (get dehydrated). If you do not have enough water in your body, you may: Feel tired. Feel thirsty. Have a dry mouth. Have cracked lips. Pee (urinate) less often. Older adults and people with other diseases or a weak body defense system (immune system) are at higher risk for not having enough water in the body. If you feel like you may vomit or you vomit, it is important to follow instructions from your doctor about how to take care of yourself. Follow these instructions at home: Watch your symptoms for any changes. Tell your doctor about them. Eating and drinking Take an ORS (oral rehydration solution). This is a drink that is sold at pharmacies and stores. Drink clear fluids in small amounts as you are able, such as: ?Water. ?Ice chips. ?Fruit juice that has water added (diluted fruit juice). ?Low-calorie sports drinks. Eat bland, nsil-aw-gsfzob foods in small amounts as you are able, such as: ?Bananas. ?Applesauce. ?Rice. ?Low-fat (lean) meats. ?[place]. ?Crackers. Avoid drinking fluids that have a lot of sugar or caffeine in them. This includes energy drinks, sports drinks, and soda. Avoid alcohol. Avoid spicy or fatty foods. General instructions Take jrme-ylz-hhurtef and prescription medicines only as told by your doctor. Drink enough fluid to keep your pee (urine) pale yellow. Wash your hands often with soap and water for at least 20 seconds. If you cannot use soap and water, use hand professor of sport management. Make sure that everyone in your home washes their hands well and often. Rest at home until you feel better. Watch your condition for any changes. Take slow and deep breaths when you feel like you may vomit. Keep all follow-up visits. Contact a doctor if: Your symptoms get worse. You have new symptoms. You have a fever. You cannot drink fluids without vomiting. You feel like you may vomit for more than 2 days. You feel light-headed or dizzy. You have a headache. You have muscle cramps. You have a rash. You have pain while peeing. Get help right away if: You have pain in your chest, neck, arm, or jaw. You feel very weak or you faint. You vomit again and again. You have vomit that is bright red or looks like black coffee grounds. You have bloody or black poop (stools) or poop that looks like tar. You have a very bad headache, a stiff neck, or both. You have very bad pain, cramping, or bloating in your belly (abdomen). You have trouble breathing. You are breathing very quickly. Your heart is beating very quickly. Your skin feels cold and clammy. You feel confused. You have signs of losing too much water in your body, such as: ?Dark pee, very little pee, or no pee. ?Cracked lips. ?Dry mouth. ?Sunken eyes. ?Sleepiness. ?Weakness. These symptoms may be an emergency. Get help right away. Call 911. Do not wait to see if the symptoms will go away. Do not drive yourself to the hospital. Summary Nausea is feeling that you have an upset stomach and that you are about to vomit. Vomiting is when food in your stomach comes out of your mouth. Follow instructions from your doctor about eating and drinking. Take jjfa-ror-kejkube and prescription medicines only as told by your doctor. Contact your doctor if your symptoms get worse or you have new symptoms. Keep all follow-up visits. This information is not intended to replace advice given to you by your health care provider. Make sure you discuss any questions you have with your health care provider. Document Revised: 04/07/2022 Document Reviewed: 04/07/2022 GiveNext Patient Education 2022 iConText. 05/21/2023 23:23:44 Abdominal Pain During , Wewj-te-Uede Abdominal Pain During Belly (abdominal) pain is common during . There are many possible causes. Some causes are more serious than others. Sometimes the cause is not known. Always tell your doctor if you have belly pain. Follow these instructions at home: Do not have sex or put anything in your vagina until your pain goes away completely. Get plenty of rest until your pain gets better. Drink enough fluid to keep your pee (urine) pale yellow. Take vhgy-lbi-pfzurlo and prescription medicines only as told by your doctor. Keep all follow-up visits. Contact a doctor if: You keep having pain after resting. Your pain gets worse after resting. You have lower belly pain that: ?Comes and goes at regular times. ?Spreads to your back. ?Feels like menstrual cramps. You have pain or burning when you pee (urinate). Get help right away if: You have a fever or chills. You feel like it is hard to breathe. You have bleeding from your vagina. You are leaking fluid or tissue from your vagina. You vomit for more than 24 hours. You have watery poop (diarrhea) for more than 24 hours. Your baby is moving less than usual. You feel very weak or faint. You have very bad pain in your upper belly. Summary Belly pain is common during . There are many possible causes. If you have belly pain during , tell your doctor right away. Keep all follow-up visits. This information is not intended to replace advice given to you by your health care provider. Make sure you discuss any questions you have with your health care provider. Document Revised: 06/14/2021 Document Reviewed: 06/14/2021 GiveNext Patient Education 2022 iConText. Follow Up Care 05/21/2023 20:38:52 With:Luis Carlos Jung Address: [address] [place] [address] [address] Business (1) When:05/24/2023 Comments:Take the Pepcid once daily until you have completed the course. You can use the Zofran every 6 hours as needed for nausea and vomiting. Please follow-up with your primary care doctor next 2 to 3 days. Please return to the ED for any new or worsening symptoms. [facility]08-07-2023 Evaluation + Plan noteExtracted from: Title:ED Note Author:Gopi Rodriguez DO Date :05/21/23 Abdominal pain, acute (R10.9 : Unspecified abdominal pain) Chest pain (R07.9: Chest pain, unspecified) N&V (nausea and vomiting) (R11.2: Nausea with vomiting, unspecified) Vaginal bleeding in (O46.90: Antepartum hemorrhage, unspecified, unspecified trimester) Orders: Al hydroxide/Mg hydroxide/simethicone, 30 mL, Susp-Oral, Oral, Once, Stop date 05/21/23 21:00:00 EDT, STAT, Start date 05/21/23 21:00:00 EDT cephalexin, 500 mg = 1 cap(s), Cap, Oral, Once, Stop date 05/21/23 23:14:00 EDT, STAT, Start date 05/21/23 23:14:00 EDT, 05/21/23 23:14:00 EDT cephalexin, 500 mg = 1 cap(s), Oral, TID, X 5 day(s), # 15 cap(s), Refills(s) 0, Pharmacy: [id number], 162.6, cm, 05/21/23 20:50:00 EDT, Height/Length Dosing, 75.3, kg, 05/21/23 20:50:00 EDT, Weight Dosing famotidine, 20 mg = 2 mL, Soln-IV, IV Push, Once, Stop date 05/21/23 21:00:00 EDT, STAT, Start date 05/21/23 21:00:00 EDT, 05/21/23 21:00:00 EDT famotidine, 20 mg = 1 tab(s), Oral, Daily, # 14 tab(s), Refills(s) 0, Pharmacy: [id number], 162.6, cm, 05/21/23 20:50:00 EDT, Height/Length Dosing, 75.3, kg, 05/21/23 20:50:00 EDT, Weight Dosing ondansetron, 4 mg = 2 mL, Injection, IV Push, Once, Stop date 05/21/23 21:00:00 EDT, STAT, Start date 05/21/23 21:00:00 EDT, 05/21/23 21:00:00 EDT ondansetron, 4 mg = 1 tab(s), Oral, q8hr, # 12 tab(s), Refills(s) 0, Pharmacy: [facility], 162.6, cm, 05/21/23 20:50:00 EDT, Height/Length Dosing, 75.3, kg, 05/21/23 20:50:00 EDT, Weight Dosing Sodium Chloride 0.9% intravenous solution, 1,000 mL, Soln-IV, IV, Once, Stop date 05/21/23 21:00:00 EDT, STAT, Start date 05/21/23 21:00:00 EDT, Infuse over 61, minute(s) Automated Diff Basic Metabolic Panel Beta hCG Quantitative CBC w/ Auto Diff ECG 12 Lead Adult eGFR Hepatic Function Panel Lipase Level Troponin 0 Hr. UA With Cult Reflex US 1st Trimester [facility]07-17-2023 Evaluation + Plan note Diagnostic Tests Pending * PAP [id number] 04/30/23 * Urine Culture 04/30/23 [facility]07-17-2023 Evaluation + Plan note Diagnostic Tests Pending * RPR with Conf Rfx 04/30/23 * HIV Screen 4th Generation wRfx 04/30/23 * Rubella Antibody IgG 04/30/23 * Hepatitis B Surface Antigen 04/30/23 [facility]07-13-2023 Evaluation + Plan noteExtracted from: Title:ED Note Author:Jos Ugalde PA-C te:04/26/23 Abdominal pain (R10.9: Unspe cified abdominal pain) (Z34.90: Encounter for supervision of normal , unspecified, unspecified trimester) Orders: Beta hCG Quantitative Extra Lav Tube Extra SST Tube US 1st Trimester US Transvaginal [facility]07-13-2023 Hospital Discharge instructions Patient Education 04/26/2023 11:11:44 Abdominal Pain During Abdominal Pain During Abdominal pain is common during and has many possible causes. Some causes are more serious than others, and sometimes the cause is not known. Abdominal pain can be a sign that labor is starting. It can also be caused by normal growth of yourbaby causing stretching of muscles and ligaments during . Always tell your health care provider if you have any abdominal pain. Follow these instructions at home: Do not have sex or put anything in your vagina until your pain goes away completely. Get plenty of rest until your pain improves. Drink enough fluid to keep your urine pale yellow. Take dtjk-sqk-tbbbbop and prescription medicines only as told by your health care provider. Keep all follow-up visits. This is important. Contact a health care provider if: Your pain continues or gets worse after resting. You have lower abdominal pain that: ?Comes and goes at regular intervals. ?Spreads to your back. ?Is similar to menstrual cramps. You have pain or burning when you urinate. Get help right away if: You have a fever, chills, or shortness of breath. You have vaginal bleeding. You are leaking fluid or passing tissue from your vagina. You have vomiting or diarrhea that lasts for more than 24 hours. Your baby is moving less than usual. You feel very weak or faint. You develop severe pain in your upper abdomen. Summary Abdominal pain is common during and has many possible causes. If you experience abdominal pain during , tell your health care provider right away. Follow your health care provider's home care instructions and keep all follow-up visits as told. This information is not intended to replace advice given to you by your health care provider. Make sure you discuss any questions you have with your health care provider. Document Revised: 06/14/2021 Document Reviewed: 06/14/2021 Elsevier Patient Education 2022 iConText. Follow Up Care 04/26/2023 08:52:22 With:Luis Carlos Jung Address: [facility] [address], [address] [address]- Business (1) When:04/29/2023 10:58:02 [facility]04-19-2023 Evaluation + Plan noteExtracted from: Title:ED Note Author:Kristian Guillermo DO Date: Acute headache (R51.9: Heada josh, unspecified) Orders: dexamethasone, 10 mg = 2.5 mL, Injection, IV Push, Once, Stop date 01/31/23 11:34:00 EDT, STAT, Start date 01/31/23 11:34:00 EDT, 01/31/23 11:34:00 EDT diphenhydrAMINE, 25 mg = 0.5 mL, Injection, IV Push, Once, Stop date 01/31/23 10:01:00 EDT, STAT, Start date 01/31/23 10:01:00 EDT, 01/31/23 10:01:00 EDT ketorolac, 30 mg = 1 mL, Injection, IV Push, Once, Stop date 01/31/23 11:33:00 EDT, STAT, Start date 01/31/23 11:33:00 EDT, 01/31/23 11:33:00 EDT magnesium sulfate + Generic Diluent 50 mL, 2 gram = 50 mL, IV Piggyback, Once, Stop date 01/31/23 10:01:00 EDT, STAT, Start date 01/31/23 10:01:00 EDT, 25 mL/hr, Infuse over 2 hour(s), 01/31/23 10:01:00 EDT metoclopramide, 10 mg = 2 mL, Injection, IV Push, Once, Stop date 01/31/23 10:01:00 EDT, STAT, Start date 01/31/23 10:01:00 EDT, 01/31/23 10:01:00 EDT Sodium Chloride 0.9% intravenous solution, 1,000 mL, Soln-IV, IV, Once, Stop date 01/31/23 10:01:00 EDT, STAT, Start date 01/31/23 10:01:00 EDT, Infuse over 61, minute(s) Automated Diff Basic Metabolic Panel Beta hCG Qual CBC w/ Auto Diff CTA Head eGFR Oxygen Therapy PT & PTT [facility]04-19-2023 Hospital Discharge instructions Patient Education 01/31/2023 11:57:21 Migraine Headache Migraine Headache A migraine headache is an intense, throbbing pain on one side or both sides of the head. Migraine headaches may also cause other symptoms, such as nausea, vomiting, and sensitivity to light and noise. A migraine headache can last from 4 hours to 3 days. Talk with your doctor about what things may bring on (trigger) your migraine headaches. What are the causes? The exact cause of this condition is not known. However, a migraine may be caused when nerves in the brain become irritated and release chemicals that cause inflammation of blood vessels. This inflammation causes pain. This condition may be triggered or caused by: Drinking alcohol. Smoking. Taking medicines, such as: ?Medicine used to treat chest pain (nitroglycerin). ? control pills. ?Estrogen. ?Certain blood pressure medicines. Eating or drinking products that contain nitrates, glutamate, aspartame, or tyramine. Aged cheeses,chocolate, or caffeine may also be triggers. Doing physical activity. Other things that may trigger a migraine headache include: Menstruation. . Hunger. Stress. Lack of sleep or too much sleep. Weather changes. Fatigue. What increases the risk? The following factors may make you more likely to experience migraine headaches: Being a certain age. This condition is more common in people who are 25 55 years old. Being female. Having a family history of migraine headaches. Being . Having a mental health condition, such as depression or anxiety. Being obese. What are the signs or symptoms? The main symptom of this condition is pulsating or throbbing pain. This pain may: Happen in any area of the head, such as on one side or both sides. Interfere with daily activities. Get worse with physical activity. Get worse with exposure to bright lights or loud noises. Other symptoms may include: Nausea. Vomiting. Dizziness. General sensitivity to bright lights, loud noises, or smells. Before you get a migraine headache, you may get warning signs (an aura). An aura may include: Seeing flashing lights or having blind spots. Seeing bright spots, halos, or zigzag lines. Having tunnel vision or blurred vision. Having numbness or a tingling feeling. Having trouble talking. Having muscle weakness. Some people have symptoms after a migraine headache (postdromal phase), such as: Feeling tired. Difficulty concentrating. How is this diagnosed? A migraine headache can be diagnosed based on: Your symptoms. A physical exam. Tests, such as: ?CT scan or an MRI of the head. These imaging tests can help rule out other causes of headaches. ?Taking fluid from the spine (lumbar puncture) and analyzing it (cerebrospinal fluid analysis, or CSF analysis). How is this treated? This condition may be treated with medicines that: Relieve pain. Relieve nausea. Prevent migraine headaches. Treatment for this condition may also include: Acupuncture. Lifestyle changes like avoiding foods that trigger migraine headaches. Biofeedback. Cognitive behavioral therapy. Follow these instructions at home: Medicines Take dcru-xjk-unznbkh and prescription medicines only as told by your health care provider. Ask your health care provider if the medicine prescribed to you: ?Requires you to avoid driving or using heavy machinery. ?Can cause constipation. You may need to take these actions to prevent or treat constipation: ?Drink enough fluid to keep your urine pale yellow. ?Take jxct-vrq-tlwpbgx or prescription medicines. ?Eat foods that are high in fiber, such as beans, whole grains, and fresh fruits and vegetables. ?Limit foods that are high in fat and processed sugars, such as fried or sweet foods. Lifestyle Do not drink alcohol. Do not use any products that contain nicotine or tobacco, such as cigarettes, e- cigarettes, and chewing tobacco. If you need help quitting, ask your health care provider. Get at least 8 hours of sleep every night. Find ways to manage stress, such as meditation, deep breathing, or yoga. General instructions Keep a journal to find out what may trigger your migraine headaches. For example, write down: ?What you eat and drink. ?How much sleep you get. ?Any change to your diet or medicines. If you have a migraine headache: ?Avoid things that make your symptoms worse, such as bright lights. ?It may help to lie down in a dark, quiet room. ?Do not drive or use heavy machinery. ?Ask your health care provider what activities are safe for you while you are experiencing symptoms. Keep all follow-up visits as told by your health care provider. This is important. Contact a health care provider if: You develop symptoms that are different or more severe than your usual migraine headache symptoms. You have more than 15 headache days in one month. Get help right away if: Your migraine headache becomes severe. Your migraine headache lasts longer than 72 hours. You have a fever. You have a stiff neck. You have vision loss. Your muscles feel weak or like you cannot control them. You start to lose your balance often. You have trouble walking. You faint. You have a seizure. Summary A migraine headache is an intense, throbbing pain on one side or both sides of the head. Migraines may also cause other symptoms, such as nausea, vomiting, and sensitivity to light and noise. This condition may be treated with medicines and lifestyle changes. You may also need to avoid certain things that trigger a migraine headache. Keep a journal to find out what may trigger your migraine headaches. Contact your health care provider if you have more than 15 headache days in a month or you develop symptoms that are different or more severe than your usual migraine headache symptoms. This information is not intended to replace advice given to you by your health care provider. Make sure you discuss any questions you have with your health care provider. Document Revised: 01/23/2020 Document Reviewed: 11/13/2019 GiveNext Patient Education 2022 iConText. Follow Up Care 01/31/2023 09:42:02 With:THANGVeronika MILLAN Address: [address] [place], [place] [id number] Business (1) When:02/03/2023 11:57:07 Comments:Call the office of your primary care doctor to arrange for follow-up within the above-stated timeframe. Follow-up with your primary care doctor about this ED visit. You should review your labs, imaging, and diagnoses from this ED visit with your primary care physician. There are occasionally non-emergent findings that require additional follow-up after your ED visit. If you were prescribed medications you should discuss possible side-effects and drug interactions with your pharmacist. Call 911 or go to the nearest Emergency Department if you develop any new or worsening symptoms.Seek immediate medical attention if you develop: worsening headache, nausea, vomiting, confusion, weakness, loss of motion in your arms or legs, loss of control of your urine or stool, difficulty waking from sleep, neck pain, fever, or any new or worsening symptoms. [facility]12-16-2022 [facility]Result Comment: Electronically Signed By: Fabiana MARION, Luis Carlos Pope.medina\Date and Time Signed: 09/29/22 09:25 [id number] [facility] Comment on above:Result Comment: Electronically Signed By: Fabiana MARION, Luis Carlos Pope.br\Date and Time Signed: 09/29/22 09:25 [id number] NoteThe following Patient Education Materials have been given to the patient: [facility]12-09-2022 NoteThe following Patient Education Materials have been given to the patient: [facility]12-09-2022 Hospital Discharge instructions Follow Up Care 09/22/2022 15:11:14 With:Luis Carlos Jung Address: [facility] [address] [address]- Business (1) When:09/24/2022 20:30:00 Comments:Appointment has already been scheduledCall for any problems.Call for fever > 100.5 FCall for severe abdominal painCall physician for heavy vaginal bleedingCall physician if symptoms worsenReturn for contractions closer, longer, harderReturn for decreased movementReturn if ruptured membranes or vaginal bleedingCall at 7:30 pm Sunday to confirm induction at 8:30 [facility]12-07-2022 NoteThe following Patient Education Materials have been given to the patient: [facility]12-06-2022 NoteThe following Patient Education Materials have been given to the patient: [facility]12-06-2022 Hospital Discharge instructions Follow Up Care 09/19/2022 01:24:08 With:Luis Carlos Jung Address: [facility] [address] [address] Business (1) When:09/20/2022 Comments:Appointment has already been scheduledCall Dr if fever>100.5 F, heavy bleedingCall for any problems.Call for severe abdominal painCall physician for heavy vaginal bleedingCall physician if symptoms worsenReturn for contractions closer, longer, harderPlease call if you need to rescheduleReturn for decreased movementReturn if ruptured membranes or vaginal bleeding [facility]12-01-2022 NoteThe following Patient Education Materials have been given to the patient: [facility]12-01-2022 Hospital Discharge instructions Patient Education 09/14/2022 11:56:10 Sinus Headache, Nawq-qi-Sujz Sinus Headache A sinus headache happens when your sinuses get swollen or blocked (clogged). Sinuses are spaces behind the bones of your face and forehead. You may feel pain or pressure in your face, forehead, ears,or upper teeth. Sinus headaches can be mild or very bad. Follow these instructions at home: General instructions If told: ?Apply a warm, moist washcloth to your face. This can help to lessen pain. ?Use a nasal saline wash. Follow the directions on the bottle or box. Medicines Take hqqt-kxt-siblpgv and prescription medicines only as told by your doctor. If you were prescribed an antibiotic medicine, take it as told by your doctor. Do not stop taking it even if you start to feel better. Use a nose spray if your nose feels full of mucus (congested). Hydrate and humidify Drink enough water to keep your pee (urine) pale yellow. Use a cool mist humidifier to keep the humidity level in your home above 50%. Breathe in steam for 10 15 minutes, 3 4 times a day or as told by your doctor. You can do this in the bathroom while a hot shower is running. Try not to spend time in cool or dry air. Contact a doctor if: You get more than one headache a week. Light or sound bothers you. You have a fever. You feel sick to your stomach (nauseous) or you throw up (vomit). Your headaches do not get better with treatment. Get help right away if: You have trouble seeing. You suddenly have very bad pain in your face or head. You start to have quick, sudden movements or shaking that you cannot control (seizure). You are confused. You have a stiff neck. Summary A sinus headache happens when your sinuses get swollen or blocked (clogged). Sinuses are spaces behind the bones of your face and forehead. You may feel pain or pressure in your face, forehead, ears, or upper teeth. Take vhfi-wxv-kcvoqxv and prescription medicines only as told by your doctor. If told, apply a warm, moist washcloth to your face. This can help to lessen pain. This information is not intended to replace advice given to you by your health care provider. Make sure you discuss any questions you have with your health care provider. Document Released: 01/31/2012 Document Revised: 09/13/2018 Document Reviewed: 07/12/2018 GiveNext Patient Education 2020 iConText. Follow Up Care 09/14/2022 09:13:06 With:Luis Carlos Jung Address: [place] [address]- Business (1) When:09/20/2022 Comments:Return if ruptured membranes or vaginal bleedingReturn for decreased movementReturn for contractions closer, longer, harderCall physician if symptoms worsenCall for severe abdominal painCall for fever > 100.5 F Drink 8-10 glasses of water/day Use SUDAFED, TYLENOL AND BENADRYL as previouslydirected by Dr Fabiana Longoria [facility]11-29-2022 NoteThe following Patient Education Materials have been given to the patient: [facility] Dis[facility] instructions Patient Education 09/12/2022 20:39:28 Third Trimester of , Snrk-dp-Brhu Third Trimester of The third trimester is from week 28 through week 40 (months 7 through 9). This trimester is when your unborn baby (fetus) is growing very fast. At the end of the ninth month, the unborn baby is about20 inches in length. It weighs about 6 10 pounds. Follow these instructions at home: Medicines Take pmaw-okg-azmoewk and prescription medicines only as told by your doctor. Some medicines are safe and some medicines are not safe during . Take a vitamin that contains at least 600 micrograms (mcg) of folic acid. If you have trouble pooping (constipation), take medicine that will make your stool soft (stool softener) if your doctor approves. Eating and drinking Eat regular, healthy meals. Avoid raw meat and uncooked cheese. If you get low calcium from the food you eat, talk to your doctor about taking a daily calcium supplement. Eat four or five small meals rather than three large meals a day. Avoid foods that are high in fat and sugars, such as fried and sweet foods. To prevent constipation: ?Eat foods that are high in fiber, like fresh fruits and vegetables, whole grains, and beans. ?Drink enough fluids to keep your pee (urine) clear or pale yellow. Activity Exercise only as told by your doctor. Stop exercising if you start to have cramps. Avoid heavy lifting, wear low heels, and sit up straight. Do not exercise if it is too hot, too humid, or if you are in a place of great height (high altitude). You may continue to have sex unless your doctor tells you not to. Relieving pain and discomfort Wear a good support bra if your breasts are tender. Take frequent breaks and rest with your legs raised if you have leg cramps or low back pain. Take warm water baths (sitz baths) to soothe pain or discomfort caused by hemorrhoids. Use hemorrhoid cream if your doctor approves. If you develop puffy, bulging veins (varicose veins) in your legs: ?Wear support hose or compression stockings as told by your doctor. ?Raise (elevate) your feet for 15 minutes, 3 4 times a day. ?Limit salt in your food. Safety Wear your seat belt when driving. Make a list of emergency phone numbers, including numbers for family, friends, the hospital, and police and fire departments. Preparing for your baby's arrival To prepare for the arrival of your baby: Take classes. Practice driving to the hospital. Visit the hospital and tour the maternity area. Talk to your work about taking leave once the baby comes. Pack your hospital bag. Prepare the baby's room. Go to your doctor visits. Buy a rear-facing car seat. Learn how to install it in your car. General instructions Do not use hot tubs, steam rooms, or saunas. Do not use any products that contain nicotine or tobacco, such as cigarettes and e-cigarettes. If you need help quitting, ask your doctor. Do not drink alcohol. Do not douche or use tampons or scented sanitary pads. Do not cross your legs for long periods of time. Do not travel for long distances unless you must. Only do so if your doctor says it is okay. Visit your dentist if you have not gone during your . Use a soft toothbrush to brush your teeth. Be gentle when you floss. Avoid cat litter boxes and soil used by cats. These carry germs that can cause defects in thebaby and can cause a loss of your baby (miscarriage) or stillbirth. Keep all your visits as told by your doctor. This is important. Contact a doctor if: You are not sure if you are in labor or if your water has broken. You are dizzy. You have mild cramps or pressure in your lower belly. You have a nagging pain in your belly area. You continue to feel sick to your stomach, you throw up, or you have watery poop. You have bad smelling fluid coming from your vagina. You have pain when you pee. Get help right away if: You have a fever. You are leaking fluid from your vagina. You are spotting or bleeding from your vagina. You have severe belly cramps or pain. You lose or gain weight quickly. You have trouble catching your breath and have chest pain. You notice sudden or extreme puffiness (swelling) of your face, hands, ankles, feet, or legs. You have not felt the baby move in over an hour. You have severe headaches that do not go away with medicine. You have trouble seeing. You are leaking, or you are having a gush of fluid, from your vagina before you are 37 weeks. You have regular belly spasms (contractions) before you are 37 weeks. Summary The third trimester is from week 28 through week 40 (months 7 through 9). This time is when your unborn baby is growing very fast. Follow your doctor's advice about medicine, food, and activity. Get ready for the arrival of your baby by taking classes, getting all the baby items ready, preparing the baby's room, and visiting your doctor to be checked. Get help right away if you are bleeding from your vagina, or you have chest pain and trouble catching your breath, or if you have not felt your baby move in over an hour. This information is not intended to replace advice given to you by your health care provider. Make sure you discuss any questions you have with your health care provider. Document Released: 12/26/2010 Document Revised: 01/22/2020 Document Reviewed: 11/06/2017 [employer] Patient Education 2020 [employer] Follow Up Care 09/12/2022 19:44:10 With:Luis Carlos Jung Address: [address] [place] [address] [address] Business (1) When:09/20/2022 Comments:Appointment has already been scheduledCall Dr if fever>100.5 F, heavy bleedingCall for any problems.Call for severe abdominal painCall physician for heavy vaginal bleedingCall physician if symptoms worsenPlease call if you need to rescheduleReturn for contractions closer, longer, harderReturn for decreased movementReturn if ruptured membranes or vaginal bleeding [facility]11-25-2022 NoteThe following Patient Education Materials have been given to the patient: [facility] Discharge instructions Follow Up Care 09/08/2022 08:14:23 With:Luis Carlos Jung Address: [address] [place], [place] [id number] [facility] (1) When:09/11/2022 Comments:Return for contractions closer, longer, harderReturn for decreased movementReturn if rupturedmembranes or vaginal bleeding [facility]11-23-2022 Hospital Discharge instructions Patient Education 09/05/2022 22:13:40 COVID-19 Frequently Asked Questions COVID-19 Frequently Asked Questions COVID-19 (coronavirus disease) is an infection that is caused by a large family of viruses. Some viruses cause illness in people and others cause illness in animals like camels, cats, and bats. In some cases, the viruses that cause illness in animals can spread to humans. Where did the coronavirus come from? In September 2019, [place] told the World Health Organization (WHO) of several cases of lung disease (human respiratory illness). These cases were linked to an open seafood and livestock market in the city of [facility]. The link to the seafood and livestock market suggests that the virus may have spread from animals to humans. However, since that first outbreak in September, the virus has also been shownto spread from person to person. What is the name of the disease and the virus? Disease name Early on, this disease was called novel coronavirus. This is because scientists determined that thedisease was caused by a new (novel) respiratory virus. The World Health Organization (WHO) has now named the disease COVID-19, or coronavirus disease. Virus name The virus that causes the disease is called severe acute respiratory syndrome coronavirus 2 (SARS-CoV-2). More information on disease and virus naming World Health Organization (WHO): www.who.int/emergencies/diseases/hafew-tacsaaidxrf-3890/technical-g uidance/ycrkwe-tfe-dqivfbeceuc-disease-(covid-2019)-gtg-dtp-jkgrf-sqdn-dgrvfl-fj Who is at risk for complications from coronavirus disease? Some people may be at higher risk for complications from coronavirus disease. This includes older adults and people who have chronic diseases, such as heart disease, diabetes, and lung disease. If you are at higher risk for complications, take these extra precautions: Avoid close contact with people who are sick or have a fever or cough. Stay at least 3 6 ft (1 2 m)away from them, if possible. Wash your hands often with soap and water for at least 20 seconds. Avoid touching your face, mouth, nose, or eyes. Keep supplies on hand at home, such as food, medicine, and cleaning supplies. Stay home as much as possible. Avoid social gatherings and travel. How does coronavirus disease spread? The virus that causes coronavirus disease spreads easily from person to person (is contagious). There are also cases of community-spread disease. This means the disease has spread to: People who have no known contact with other infected people. People who have not traveled to areas where there are known cases. It appears to spread from one person to another through droplets from coughing or sneezing. Can I get the virus from touching surfaces or objects? There is still a lot that we do not know about the virus that causes coronavirus disease. Scientists are basing a lot of information on what they know about similar viruses, such as: Viruses cannot generally survive on surfaces for long. They need a human body (host) to survive. It is more likely that the virus is spread by close contact with people who are sick (direct contact), such as through: ?Shaking hands or hugging. ?Breathing in respiratory droplets that travel through the air. This can happen when an infected person coughs or sneezes on or near other people. It is less likely that the virus is spread when a person touches a surface or object that has the virus on it (indirect contact). The virus may be able to enter the body if the person touches a surface or object and then touches his or her face, eyes, nose, or mouth. Can a person spread the virus without having symptoms of the disease? It may be possible for the virus to spread before a person has symptoms of the disease, but this ismost likely not the main way the virus is spreading. It is more likely for the virus to spread by being in close contact with people who are sick and breathing in the respiratory droplets of a sick person's cough or sneeze. What are the symptoms of coronavirus disease? Symptoms vary from person to person and can range from mild to severe. Symptoms may include: Fever. Cough. Tiredness, weakness, or fatigue. Fast breathing or feeling short of breath. These symptoms can appear anywhere from 2 to 14 days after you have been exposed to the virus. If you develop symptoms, call your health care provider. People with severe symptoms may need hospital care. If I am exposed to the virus, how long does it take before symptoms start? Symptoms of coronavirus disease may appear anywhere from 2 to 14 days after a person has been exposed to the virus. If you develop symptoms, call your health care provider. Should I be tested for this virus? Your health care provider will decide whether to test you based on your symptoms, history of exposure, and your risk factors. How does a health care provider test for this virus? Health care providers will collect samples to send for testing. Samples may include: Taking a swab of fluid from the nose. Taking fluid from the lungs by having you cough up mucus (sputum) into a sterile cup. Taking a blood sample. Taking a stool or urine sample. Is there a treatment or vaccine for this virus? Currently, there is no vaccine to prevent coronavirus disease. Also, there are no medicines like antibiotics or antivirals to treat the virus. A person who becomes sick is given supportive care, which means rest and fluids. A person may also relieve his or her symptoms by using mpsm-rch-ximaaof medicines that treat sneezing, coughing, and runny nose. These are the same medicines that a person takes for the common cold. If you develop symptoms, call your health care provider. People with severe symptoms may need hospital care. What can I do to protect myself and my family from this virus? You can protect yourself and your family by taking the same actions that you would take to prevent the spread of other viruses. Take the following actions: Wash your hands often with soap and water for at least 20 seconds. If soap and water are not available, use alcohol-based hand professor of sport management. Avoid touching your face, mouth, nose, or eyes. Cough or sneeze into a tissue, sleeve, or elbow. Do not cough or sneeze into your hand or the air. ?If you cough or sneeze into a tissue, throw it away immediately and wash your hands. Disinfect objects and surfaces that you frequently touch every day. Avoid close contact with people who are sick or have a fever or cough. Stay at least 3 6 ft (1 2 m)away from them, if possible. Stay home if you are sick, except to get medical care. Call your health care provider before you get medical care. Make sure your vaccines are up to date. Ask your health care provider what vaccines you need. What should I do if I need to travel? Follow travel recommendations from your local health authority, the CDC, and WHO. Travel information and advice Centers for Disease Control and Prevention (CDC): www.cdc.gov/coronavirus/2019-ncov/travelers/index.html World Health Organization (WHO): www.who.int/emergencies/diseases/yyhvp-eogshzrijvf-2440/travel-advice Know the risks and take action to protect your health You are at higher risk of getting coronavirus disease if you are traveling to areas with an outbreak or if you are exposed to travelers from areas with an outbreak. Wash your hands often and practice good hygiene to lower the risk of catching or spreading the virus. What should I do if I am sick? General instructions to stop the spread of infection Wash your hands often with soap and water for at least 20 seconds. If soap and water are not available, use alcohol-based hand professor of sport management. Cough or sneeze into a tissue, sleeve, or elbow. Do not cough or sneeze into your hand or the air. If you cough or sneeze into a tissue, throw it away immediately and wash your hands. Stay home unless you must get medical care. Call your health care provider or local health authority before you get medical care. Avoid public areas. Do not take public transportation, if possible. If you can, wear a mask if you must go out of the house or if you are in close contact with someonewho is not sick. Keep your home clean Disinfect objects and surfaces that are frequently touched every day. This may include: ?Counters and tables. ?Doorknobs and light switches. ?Sinks and faucets. ?Electronics such as phones, remote controls, keyboards, computers, and tablets. Wash dishes in hot, soapy water or use a supervisor veneer. Air-dry your dishes. Wash laundry in hot water. Prevent infecting other household members Let healthy household members care for children and pets, if possible. If you have to care for children or pets, wash your hands often and wear a mask. Sleep in a different bedroom or bed, if possible. Do not share personal items, such as razors, toothbrushes, deodorant, hahn, brushes, towels, and washcloths. Where to find more information Centers for Disease Control and Prevention (CDC) Information and news updates: www.cdc.gov/coronavirus/2019-ncov World Health Organization (WHO) Information and news updates: www.who.int/emergencies/diseases/wnulm-ffldbfysdqa-4679 Coronavirus health topic: www.who.int/health-topics/coronavirus Questions and answers on COVID-19: www.who.int/news-room/q-a-detail/i-z-wyfpjubvmfgvn Global tracker: who.[employer] [place] [employer] (AAP) Information for families: www.healthychildren.org/Faroese/health-issues/conditions/chest-lungs/Pages /1882-Ujlrv-Cmtkkdbpwkp.aspx The coronavirus situation is changing rapidly. Check your local health authority website or the CDCand WHO websites for updates and news. When should I contact a health care provider? Contact your health care provider if you have symptoms of an infection, such as fever or cough, andyou: ?Have been near anyone who is known to have coronavirus disease. ?Have come into contact with a person who is suspected to have coronavirus disease. ?Have traveled outside of the country. When should I get emergency medical care? Get help right away by calling your local emergency services (911 in the [place] if you have: ?Trouble breathing. ?Pain or pressure in your chest. ?Confusion. ?Blue-tinged lips and fingernails. ?Difficulty waking from sleep. ?Symptoms that get worse. Let the emergency medical personnel know if you think you have coronavirus disease. Summary A new respiratory virus is spreading from person to person and causing COVID-19 (coronavirus disease). The virus that causes COVID-19 appears to spread easily. It spreads from one person to another through droplets from coughing or sneezing. Older adults and those with chronic diseases are at higher risk of disease. If you are at higher risk for complications, take extra precautions. There is currently no vaccine to prevent coronavirus disease. There are no medicines, such as antibiotics or antivirals, to treat the virus. You can protect yourself and your family by washing your hands often, avoiding touching your face, and covering your coughs and sneezes. This information is not intended to replace advice given to you by your health care provider. Make sure you discuss any questions you have with your health care provider. Document Released: 01/27/2020 Document Revised: 01/27/2020 Document Reviewed: 01/27/2020 [employer] Patient Education 2019 [employer]. 09/05/2022 22:13:40 COVID-19 COVID-19 COVID-19 is a respiratory infection that is caused by a virus called severe acute respiratory syndrome coronavirus 2 (SARS-CoV-2). The disease is also known as coronavirus disease or novel coronavirus. In some people, the virus may not cause any symptoms. In others, it may cause a serious infection. The infection can get worse quickly and can lead to complications, such as: Pneumonia, or infection of the lungs. Acute respiratory distress syndrome or ARDS. This is fluid build-up in the lungs. Acute respiratory failure. This is a condition in which there is not enough oxygen passing from thelungs to the body. Sepsis or septic shock. This is a serious bodily reaction to an infection. Blood clotting problems. Secondary infections due to bacteria or fungus. The virus that causes COVID-19 is contagious. This means that it can spread from person to person through droplets from coughs and sneezes (respiratory secretions). What are the causes? This illness is caused by a virus. You may catch the virus by: Breathing in droplets from an infected person's cough or sneeze. Touching something, like a table or a doorknob, that was exposed to the virus (contaminated) and then touching your mouth, nose, or eyes. What increases the risk? Risk for infection You are more likely to be infected with this virus if you: Live in or travel to an area with a COVID-19 outbreak. Come in contact with a sick person who recently traveled to an area with a COVID-19 outbreak. Provide care for or live with a person who is infected with COVID-19. Risk for serious illness You are more likely to become seriously ill from the virus if you: Are 65 years of age or older. Have a long-term disease that lowers your body's ability to fight infection (immunocompromised). Live in a senior living or long-term care facility. Have a long-term (chronic) disease such as: ?Chronic lung disease, including chronic obstructive pulmonary disease or asthma ?Heart disease. ?Diabetes. ?Chronic kidney disease. ?Liver disease. Are obese. What are the signs or symptoms? Symptoms of this condition can range from mild to severe. Symptoms may appear any time from 2 to 14days after being exposed to the virus. They include: A fever. A cough. Difficulty breathing. Chills. Muscle pains. A sore throat. Loss of taste or smell. Some people may also have stomach problems, such as nausea, vomiting, or diarrhea. Other people may not have any symptoms of COVID-19. How is this diagnosed? This condition may be diagnosed based on: Your signs and symptoms, especially if: ?You live in an area with a COVID-19 outbreak. ?You recently traveled to or from an area where the virus is common. ?You provide care for or live with a person who was diagnosed with COVID-19. A physical exam. Lab tests, which may include: ?A nasal swab to take a sample of fluid from your nose. ?A throat swab to take a sample of fluid from your throat. ?A sample of mucus from your lungs (sputum). ?Blood tests. Imaging tests, which may include, X-rays, CT scan, or ultrasound. How is this treated? At present, there is no medicine to treat COVID-19. Medicines that treat other diseases are being used on a trial basis to see if they are effective against COVID-19. Your health care provider will talk with you about ways to treat your symptoms. For most people, the infection is mild and can be managed at home with rest, fluids, and bglj-jdm-gloxjnd medicines. Treatment for a serious infection usually takes places in a hospital intensive care unit (ICU). It may include one or more of the following treatments. These treatments are given until your symptoms improve. Receiving fluids and medicines through an IV. Supplemental oxygen. Extra oxygen is given through a tube in the nose, a face mask, or a louise. Positioning you to lie on your stomach (prone position). This makes it easier for oxygen to get into the lungs. Continuous positive airway pressure (CPAP) or bi-level positive airway pressure (BPAP) machine. This treatment uses mild air pressure to keep the airways open. A tube that is connected to a motor delivers oxygen to the body. Ventilator. This treatment moves air into and out of the lungs by using a tube that is placed in your windpipe. Tracheostomy. This is a procedure to create a hole in the neck so that a breathing tube can be inserted. Extracorporeal membrane oxygenation (ECMO). This procedure gives the lungs a chance to recover by taking over the functions of the heart and lungs. It supplies oxygen to the body and removes carbon dioxide. Follow these instructions at home: Lifestyle If you are sick, stay home except to get medical care. Your health care provider will tell you how long to stay home. Call your health care provider before you go for medical care. Rest at home as told by your health care provider. Do not use any products that contain nicotine or tobacco, such as cigarettes, e- cigarettes, and chewing tobacco. If you need help quitting, ask your health care provider. Return to your normal activities as told by your health care provider. Ask your health care provider what activities are safe for you. General instructions Take dmpm-syq-tkhlwgn and prescription medicines only as told by your health care provider. Drink enough fluid to keep your urine pale yellow. Keep all follow-up visits as told by your health care provider. This is important. How is this prevented? There is no vaccine to help prevent COVID-19 infection. However, there are steps you can take to protect yourself and others from this virus. To protect yourself: Do not travel to areas where COVID-19 is a risk. The areas where COVID-19 is reported change often.To identify high-risk areas and travel restrictions, check the CDC travel website: wwwnc.cdc.gov/travel/notices If you live in, or must travel to, an area where COVID-19 is a risk, take precautions to avoid infection. ?Stay away from people who are sick. ?Wash your hands often with soap and water for 20 seconds. If soap and water are not available, usean alcohol-based hand professor of sport management. ?Avoid touching your mouth, face, eyes, or nose. ?Avoid going out in public, follow guidance from your state and local health authorities. ?If you must go out in public, wear a cloth face covering or face mask. ?Disinfect objects and surfaces that are frequently touched every day. This may include: ?Counters and tables. ?Doorknobs and light switches. ?Sinks and faucets. ?Electronics, such as phones, remote controls, keyboards, computers, and tablets. To protect others: If you have symptoms of COVID-19, take steps to prevent the virus from spreading to others. If you think you have a COVID-19 infection, contact your health care provider right away. Tell yourhealth care team that you think you may have a COVID-19 infection. Stay home. Leave your house only to seek medical care. Do not use public transport. Do not travel while you are sick. Wash your hands often with soap and water for 20 seconds. If soap and water are not available, use alcohol-based hand professor of sport management. Stay away from other members of your household. Let healthy household members care for children andpets, if possible. If you have to care for children or pets, wash your hands often and wear a mask.If possible, stay in your own room, separate from others. Use a different bathroom. Make sure that all people in your household wash their hands well and often. Cough or sneeze into a tissue or your sleeve or elbow. Do not cough or sneeze into your hand or into the air. Wear a cloth face covering or face mask. Where to find more information Centers for Disease Control and Prevention: www.cdc.gov/coronavirus/2019-ncov/index.html World Health Organization: www.who.int/health-topics/coronavirus Contact a health care provider if: You live in or have traveled to an area where COVID-19 is a risk and you have symptoms of the infection. You have had contact with someone who has COVID-19 and you have symptoms of the infection. Get help right away if: You have trouble breathing. You have pain or pressure in your chest. You have confusion. You have bluish lips and fingernails. You have difficulty waking from sleep. You have symptoms that get worse. These symptoms may represent a serious problem that is an emergency. Do not wait to see if the symptoms will go away. Get medical help right away. Call your local emergency services (911 in the [place] Do not drive yourself to the hospital. Let the emergency medical personnel know if you think you have COVID-19. Summary COVID-19 is a respiratory infection that is caused by a virus. It is also known as coronavirus disease or novel coronavirus. It can cause serious infections, such as pneumonia, acute respiratory distress syndrome, acute respiratory failure, or sepsis. The virus that causes COVID-19 is contagious. This means that it can spread from person to person through droplets from coughs and sneezes. You are more likely to develop a serious illness if you are 65 years of age or older, have a weak immunity, live in a senior living, or have chronic disease. There is no medicine to treat COVID-19. Your health care provider will talk with you about ways to treat your symptoms. Take steps to protect yourself and others from infection. Wash your hands often and disinfect objects and surfaces that are frequently touched every day. Stay away from people who are sick and wear amask if you are sick. This information is not intended to replace advice given to you by your health care provider. Make sure you discuss any questions you have with your health care provider. Document Released: 11/06/2019 Document Revised: 02/26/2020 Document Reviewed: 11/06/2019 [employer] Patient Education 2020 [employer]. Follow Up Care 09/05/2022 20:08:29 With:Luis Carlos Jung Address: [address] [address]- Business (1) When:09/08/2022 21:42:10 Comments:Use the albuterol inhaler 2 puffs every 4 hours for the next 2 to 3 days, you can use the Zofran every 6 hours as needed for nausea and vomiting. Please follow-up with your primary care doctor in thenext 2 to 3 days. Please return to the ED for any new or worsening symptoms. With:THANG MILLAN Address: [address] [place], [place] [id number] Business (1) When:09/08/2022 21:42:06 [facility]11-22-2022 Evaluation + Plan noteExtracted from: Title:ED Note Author:Gopi Rodriguez DO Date :09/05/22 Acute COVID-19 (U07.1: COVID -19) Orders: albuterol, 180 mcg, 2 puff(s), Aerosol, Inhalation, q4hr PRN Shortness of breath or wheezing, STAT, Start date 09/05/22 20:56:00 EST, COVID PATIENTS ONLY albuterol, Aerosol, Misc, Once, Stop date 09/05/22 20:52:01 EST, Physician Stop, 09/05/22 20:52:01 EST ondansetron, 4 mg = 1 tab(s), Oral, q8hr, PRN Nausea/Vomiting, # 12 tab(s), Refills(s) 0, Pharmacy: [facility], 163, cm, 09/05/22 20:14:00 EST, Height/Length Dosing, 82, kg, 09/05/22 20:14:00 EST, Weight Dosing Patient Specific Meds, Each, Misc, Once, Stop date 09/05/22 20:20:28 EST, Physician Stop, 09/05/22 20:20:28 EST Patient Specific Meds, Each, Misc, Once, Stop date 09/05/22 20:24:08 EST, Physician Stop, 09/05/22 20:24:08 EST Sodium Chloride 0.9% intravenous solution, 1,000 mL, Soln-IV, IV, Once, Stop date 09/05/22 20:22:00 EST, STAT, Start date 09/05/22 20:22:00 EST, mL/hr, Infuse over 61, minute(s) Automated Diff B-Type Natriuretic Peptide Basic Metabolic Panel CBC w/ Auto Diff Continuous Pulse Oximetry ED Cardiac Monitoring eGFR Extra SST Tube Oxygen Therapy PT & PTT Rapid COVID Antigen [place] [place] Saline Lock Insert Troponin 0 Hr. XR Chest Single View Future Appointments Appointment Date:09/06/2022 07:00:00 AM Scheduled Provider: Location:[facility] Appointment Type:Outpatient COVID Testing [facility]11-21-2022 Evaluation + Plan note Diagnostic Tests Pending * Group B Streptococcus colonization by PCR 09/04/22 [facility]11-17-2022 NoteThe following Patient Education Materials have been given to the patient: Education[facility]ateriTiff[facility]11-17-2022 Hospital Discharge instructions Patient Education 08/31/2022 00:56:47 Third Trimester of , Cjuu-pt-Mnre Third Trimester of The third trimester is from week 28 through week 40 (months 7 through 9). This trimester is when your unborn baby (fetus) is growing very fast. At the end of the ninth month, the unborn baby is about20 inches in length. It weighs about 6 10 pounds. Follow these instructions at home: Medicines Take zmoh-iqf-iasjvfe and prescription medicines only as told by your doctor. Some medicines are safe and some medicines are not safe during . Take a vitamin that contains at least 600 micrograms (mcg) of folic acid. If you have trouble pooping (constipation), take medicine that will make your stool soft (stool softener) if your doctor approves. Eating and drinking Eat regular, healthy meals. Avoid raw meat and uncooked cheese. If you get low calcium from the food you eat, talk to your doctor about taking a daily calcium supplement. Eat four or five small meals rather than three large meals a day. Avoid foods that are high in fat and sugars, such as fried and sweet foods. To prevent constipation: ?Eat foods that are high in fiber, like fresh fruits and vegetables, whole grains, and beans. ?Drink enough fluids to keep your pee (urine) clear or pale yellow. Activity Exercise only as told by your doctor. Stop exercising if you start to have cramps. Avoid heavy lifting, wear low heels, and sit up straight. Do not exercise if it is too hot, too humid, or if you are in a place of great height (high altitude). You may continue to have sex unless your doctor tells you not to. Relieving pain and discomfort Wear a good support bra if your breasts are tender. Take frequent breaks and rest with your legs raised if you have leg cramps or low back pain. Take warm water baths (sitz baths) to soothe pain or discomfort caused by hemorrhoids. Use hemorrhoid cream if your doctor approves. If you develop puffy, bulging veins (varicose veins) in your legs: ?Wear support hose or compression stockings as told by your doctor. ?Raise (elevate) your feet for 15 minutes, 3 4 times a day. ?Limit salt in your food. Safety Wear your seat belt when driving. Make a list of emergency phone numbers, including numbers for family, friends, the hospital, and police and fire departments. Preparing for your baby's arrival To prepare for the arrival of your baby: Take classes. Practice driving to the hospital. Visit the hospital and tour the maternity area. Talk to your work about taking leave once the baby comes. Pack your hospital bag. Prepare the baby's room. Go to your doctor visits. Buy a rear-facing car seat. Learn how to install it in your car. General instructions Do not use hot tubs, steam rooms, or saunas. Do not use any products that contain nicotine or tobacco, such as cigarettes and e-cigarettes. If you need help quitting, ask your doctor. Do not drink alcohol. Do not douche or use tampons or scented sanitary pads. Do not cross your legs for long periods of time. Do not travel for long distances unless you must. Only do so if your doctor says it is okay. Visit your dentist if you have not gone during your . Use a soft toothbrush to brush your teeth. Be gentle when you floss. Avoid cat litter boxes and soil used by cats. These carry germs that can cause defects in thebaby and can cause a loss of your baby (miscarriage) or stillbirth. Keep all your visits as told by your doctor. This is important. Contact a doctor if: You are not sure if you are in labor or if your water has broken. You are dizzy. You have mild cramps or pressure in your lower belly. You have a nagging pain in your belly area. You continue to feel sick to your stomach, you throw up, or you have watery poop. You have bad smelling fluid coming from your vagina. You have pain when you pee. Get help right away if: You have a fever. You are leaking fluid from your vagina. You are spotting or bleeding from your vagina. You have severe belly cramps or pain. You lose or gain weight quickly. You have trouble catching your breath and have chest pain. You notice sudden or extreme puffiness (swelling) of your face, hands, ankles, feet, or legs. You have not felt the baby move in over an hour. You have severe headaches that do not go away with medicine. You have trouble seeing. You are leaking, or you are having a gush of fluid, from your vagina before you are 37 weeks. You have regular belly spasms (contractions) before you are 37 weeks. Summary The third trimester is from week 28 through week 40 (months 7 through 9). This time is when your unborn baby is growing very fast. Follow your doctor's advice about medicine, food, and activity. Get ready for the arrival of your baby by taking classes, getting all the baby items ready, preparing the baby's room, and visiting your doctor to be checked. Get help right away if you are bleeding from your vagina, or you have chest pain and trouble catching your breath, or if you have not felt your baby move in over an hour. This information is not intended to replace advice given to you by your health care provider. Make sure you discuss any questions you have with your health care provider. Document Released: 12/26/2010 Document Revised: 01/22/2020 Document Reviewed: 11/06/2017 Give[employer] Patient Education 2020 [employer]. Follow Up Care 08/30/2022 21:31:53 With:Luis Carlos Jung Address: [address] [place] [phone] Business (1) When:09/04/2022 Comments:Call for any problems.Call for severe abdominal painCall physician for heavy vaginal bleedingReturnfor contractions closer, longer, harderReturn for decreased movementReturn if ruptured membranes or vaginal bleeding [facility]11-08-2022 Hospital Discharge instructions Follow Up Care 08/22/2022 14:58:59 With:Dr. 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 [facility]11-04-2022 Evaluation + Plan note Diagnostic Tests Pending * Urine Culture 08/18/22 [facility]11-04-2022 Hospital Discharge instructions Follow Up Care 08/18/2022 03:47:49 With:Luis Carlos Jung [facility] [place] [address] Business (1) When:08/21/2022 08:45:00 Comments:Appointment has already been scheduled, please keep scheduled apptCall for any problems.Call physician if symptoms worsen [facility]10-30-2022 Hospital Discharge instructions Patient Education 08/13/2022 19:55:11 Form - Movement Counts Movement Counts Patient Name: Patient Due Date: What is a movement count? A movement count is the number of times that you feel your baby move during a certain amount of time. This may also be called a kick count. A movement count is recommended for every woman. You may be asked to start counting movements as early as week 28 of your . Pay attention to when your baby is most active. You may notice your baby's sleep and wake cycles. You may also notice things that make your baby move more. You should do a movement count: When your baby is normally most active. At the same time each day. A good time to count movements is while you are resting, after having something to eat and drink. How do I count movements? 1.Find a quiet, comfortable area. Sit, or lie down on your side. 2.Write down the date, the start time and stop time, and the number of movements that you felt between those two times. Take this information with you to your health care visits. 3.For 2 hours, count kicks, flutters, swishes, rolls, and jabs. You should feel at least 10 movements during 2 hours. 4.You may stop counting after you have felt 10 movements. 5.If you do not feel 10 movements in 2 hours, have something to eat and drink. Then, keep resting and counting for 1 hour. If you feel at least 4 movements during that hour, you may stop counting. Contact a health care provider if: You feel fewer than 4 movements in 2 hours. Your baby is not moving like he or she usually does. Date: Start time: Stop time: Movements: Date: Start time: Stop time: Movements: Date: Start time: Stop time: Movements: Date: Start time: Stop time: Movements: Date: Start time: Stop time: Movements: Date: Start time: Stop time: Movements: Date: Start time: Stop time: Movements: Date: Start time: Stop time: Movements: Date: Start time: Stop time: Movements: This information is not intended to replace advice given to you by your health care provider. Make sure you discuss any questions you have with your health care provider. Document Released: 10/31/2007 Document Revised: 10/21/2019 Document Reviewed: 11/09/2016 GiveNext Patient Education 2019 [employer] 08/13/2022 19:55:11 Monitoring Overview Monitoring Overview Monitoring your developing baby (fetus) before can identify potential problems for you and your baby. monitoring can: Help prevent serious problems from developing. Guide health care providers in how best to care for your unborn baby. Check your unborn baby s overall health. The amount of monitoring and the specific tests that will be done will vary. It will depend on whether your is considered to be low or high risk. For example, you may need certain tests if you have a medical problem that can put your unborn baby at risk. Health care providers use several techniques and tests to monitor your baby before . No singletest is perfectly accurate, and you may need to follow up with your health care provider if there are any concerns. movement counts When you are past 20 weeks of , you may feel your baby move. As your baby gets bigger, these movements are easier to feel. A movement count is when you count the number of movements (kicks, flutters, swishes, rolls, or jabs) over a specific period of time. You record the number and report it to your health care provider. This is often recommended in high-risk pregnancies, but it isgood for every woman to do. Your health care provider may ask you to start counting movements at 28 weeks of . Non-stress test The non-stress test: Evaluates heartbeat: ?While your baby is at rest. ?While your baby is moving. Is often done as part of a set of tests called the biophysical profile. May show signs that it is time for your baby to be delivered. The heart rate in a healthy baby will speed up when the baby moves or kicks. The heart rate will decrease at rest, and the peaks or accelerations of the heart rate will be lower. If the test brings up any questions or concerns, you may need to have more testing. This test may be done if your goes past your due date. It is also commonly done in high-risk pregnancies beginning at 32 weeks. Biophysical profile The biophysical profile is a set of tests that are done to find out how well the baby is doing. It includes the non-stress test along with imaging tests that use sound waves (ultrasound) to create images of your baby. In a biophysical profile, the following tests are done and scored: heartbeat. breathing. movements. muscle tone. Amount of amniotic fluid. Each test gets a score of either 2 (normal) or 0 (abnormal). The scores are then added together fora total score. A low score may mean that you and your baby need additional monitoring or special care. Sometimes your health care provider may recommend that you deliver early. This test is usually done after 32 weeks of . It can be done sooner, if needed. Contraction stress test A contraction stress test monitors the heart rate of your baby during contractions. The test checksto see how your baby will tolerate the stress of labor. Health care providers use this test to further evaluate your baby when other tests, such as the biophysical profile, have shown that there may be a problem. This test may be done: Any time you are in labor. Between weeks 32 and 34 of your . Later, if necessary. Modified biophysical profile A modified biophysical profile is a two-part test. You will have: An ultrasound exam, to check how much fluid is surrounding your baby inside of your womb (amniotic fluid). A non-stress test, to check your baby s heart rate. The results will determine whether a full biophysical profile may be needed. This test is usually done late in your final 3 months (third trimester) of . Umbilical artery Doppler velocimetry Umbilical artery Doppler velocimetry uses sound waves to measure the flow of blood between you and your baby. This test: Measures the amount of blood flow through the cord that attaches your baby to your womb (umbilical cord). Measures the speed of the blood flow. You likely only need this test to check your baby's condition if you have a high-risk . All types of monitoring aim to protect your health and that of your baby. The best way to have a healthy and a healthy baby is to learn as much as you can about your and to work closely with all your health care providers. This information is not intended to replace advice given to you by your health care provider. Make sure you discuss any questions you have with your health care provider. Document Released: 09/21/2003 Document Revised: 06/25/2018 Document Reviewed: 04/30/2017 GiveNext Patient Education 2020 [employer] Follow Up Care 08/13/2022 17:29:42 With:Luis Carlos Jung Address: [address] [address] [address] Business (1) When:1 to 2 days Comments:Call for any problems.Return for contractions closer, longer, harderReturn for decreased movementReturn if ruptured membranes or vaginal bleeding [facility]10-13-2022 Hospital Discharge instructions Follow Up Care 07/27/2022 01:12:54 With:Dr. Jung [phone] Address:Unknown When:09/24/2022 20:30:00 Comments:Call for any problems.Return if ruptured membranes or vaginal bleedingReturn for decreased movementcontractions every 5 minutes lasting 45 seconds for an hourSunday night at 7:30 PM to assure bed availability for induction [facility]10-12-2022 Hospital Discharge instructions Patient Education 07/26/2022 10:15:24 Sacroiliac Joint Dysfunction Sacroiliac Joint Dysfunction Sacroiliac joint dysfunction is a condition that causes inflammation on one or both sides of the sacroiliac (SI) joint. The SI joint connects the lower part of the spine (sacrum) with the two upper portions of the pelvis (ilium). This condition causes deep aching or burning pain in the low back. Insome cases, the pain may also spread into one or both buttocks, hips, or thighs. What are the causes? This condition may be caused by: . During , extra stress is put on the SI joints because the pelvis widens. Injury, such as: ?Injuries from car accidents. ?Sports-related injuries. ?Work-related injuries. Having one leg that is shorter than the other. Conditions that affect the joints, such as: ?Rheumatoid arthritis. ?Gout. ?Psoriatic arthritis. ?Joint infection (septic arthritis). Sometimes, the cause of SI joint dysfunction is not known. What are the signs or symptoms? Symptoms of this condition include: Aching or burning pain in the lower back. The pain may also spread to other areas, such as: ?Buttocks. ?Groin. ?Thighs. Muscle spasms in or around the painful areas. Increased pain when standing, walking, running, stair climbing, bending, or lifting. How is this diagnosed? This condition is diagnosed with a physical exam and medical history. During the exam, the health care provider may move one or both of your legs to different positions to check for pain. Various tests may be done to confirm the diagnosis, including: Imaging tests to look for other causes of pain. These may include: ?MRI. ?CT scan. ?Bone scan. Diagnostic injection. A numbing medicine is injected into the SI joint using a needle. If your painis temporarily improved or stopped after the injection, this can indicate that SI joint dysfunctionis the problem. How is this treated? Treatment depends on the cause and severity of your condition. Treatment options may include: Ice or heat applied to the lower back area after an injury. This may help reduce pain and muscle spasms. Medicines to relieve pain or inflammation or to relax the muscles. Wearing a back brace (sacroiliac brace) to help support the joint while your back is healing. Physical therapy to increase muscle strength around the joint and flexibility at the joint. This may also involve learning proper body positions and ways of moving to relieve stress on the joint. Direct manipulation of the SI joint. Injections of steroid medicine into the joint to reduce pain and swelling. Radiofrequency ablation to burn away nerves that are carrying pain messages from the joint. Use of a device that provides electrical stimulation to help reduce pain at the joint. Surgery to put in screws and plates that limit or prevent joint motion. This is rare. Follow these instructions at home: Medicines Take qipy-dok-ogqumvi and prescription medicines only as told by your health care provider. Do not drive or use heavy machinery while taking prescription pain medicine. If you are taking prescription pain medicine, take actions to prevent or treat constipation. Your health care provider may recommend that you: ?Drink enough fluid to keep your urine pale yellow. ?Eat foods that are high in fiber, such as fresh fruits and vegetables, whole grains, and beans. ?Limit foods that are high in fat and processed sugars, such as fried or sweet foods. ?Take an inwp-tkl-sadvnen or prescription medicine for constipation. If you have a brace: Wear the brace as told by your health care provider. Remove it only as told by your health care provider. Keep the brace clean. If the brace is not waterproof: ?Do not let it get wet. ?Cover it with a watertight covering when you take a bath or a shower. Managing pain, stiffness, and swelling Icing can help with pain and swelling. Heat may help with muscle tension or spasms. Ask your healthcare provider if you should use ice or heat. If directed, put ice on the affected area: ?If you have a removable brace, remove it as told by your health care provider. ?Put ice in a plastic bag. ?Place a towel between your skin and the bag. ?Leave the ice on for 20 minutes, 2 3 times a day. If directed, apply heat to the affected area. Use the heat source that your health care provider recommends, such as a moist heat pack or a heating pad. ?Place a towel between your skin and the heat source. ?Leave the heat on for 20 30 minutes. ?Remove the heat if your skin turns bright red. This is especially important if you are unable to feel pain, heat, or cold. You may have a greater risk of getting burned. General instructions Rest as needed. Ask your health care provider what activities are safe for you. Return to your normal activities as told by your health care provider. Exercise as directed by your health care provider or physical therapist. Do not use any products that contain nicotine or tobacco, such as cigarettes and e-cigarettes. These can delay bone healing. If you need help quitting, ask your health care provider. Keep all follow-up visits as told by your health care provider. This is important. Contact a health care provider if: Your pain is not controlled with medicine. You have a fever. Your pain is getting worse. Get help right away if: You have weakness, numbness, or tingling in your legs or feet. You lose control of your bladder or bowel. Summary Sacroiliac joint dysfunction is a condition that causes inflammation on one or both sides of the sacroiliac (SI) joint. This condition causes deep aching or burning pain in the low back. In some cases, the pain may alsospread into one or both buttocks, hips, or thighs. Treatment depends on the cause and severity of your condition. It may include medicines to reduce pain and swelling or to relax muscles. This information is not intended to replace advice given to you by your health care provider. Make sure you discuss any questions you have with your health care provider. Document Released: 12/28/2009 Document Revised: 05/28/2019 Document Reviewed: 11/11/2018 GiveNext Patient Education 2020 [employer]ConText. Follow Up Care 07/26/2022 07:56:25 With:Luis Carlos Jung Address: [facility] [address] [place] [id number] Business (1) When:08/07/2022 07:45:00 [facility]10-03-2022 Evaluation + Plan noteExtracted from: Title:ED Note Author:Hi Carmona PA-C te:07/17/22 UTI (urinary tract infection ) (N39.0: Urinary tract infection, site not specified) Orders: cephalexin, 500 mg = 1 cap(s), Oral, q12hr, X 5 day(s), # 10 cap(s), Refills(s) 0, Pharmacy: [facility], 162.5, cm, 07/17/22 9:09:00 EDT, Height/Length Dosing, 80, kg, 07/17/22 9:09:00 EDT, Weight Dosing Patient Specific Meds, Each, Misc, Once, Stop date 07/17/22 9:10:34 EDT, Physician Stop, 07/17/22 9:10:34 EDT Influenza A&B Ag Rapid COVID Antigen ([facility] [place] UA With Cult Reflex [facility]10-03-2022 Hospital Discharge instructions Patient Education 07/17/2022 09:55:44 and Urinary Tract Infection and Urinary Tract Infection A urinary tract infection (UTI) is an infection of any part of the urinary tract. This includes thekidneys, the tubes that connect your kidneys to your bladder (ureters), the bladder, and the tube that carries urine out of your body (urethra). These organs make, store, and get rid of urine in the body. Your health care provider may use other names to describe the infection. An upper UTI affects the ureters and kidneys (pyelonephritis). A lower UTI affects the bladder (cystitis) and urethra (urethritis). Most urinary tract infections are caused by bacteria in your genital area, around the entrance to your urinary tract (urethra). These bacteria grow and cause irritation and inflammation of your urinary tract. You are more likely to develop a UTI during because the physical and hormonal changes your body goes through can make it easier for bacteria to get into your urinary tract. Your growing baby also puts pressure on your bladder and can affect urine flow. It is important to recognize and treat UTIs in because of the risk of serious complications for both you and your baby. How does this affect me? Symptoms of a UTI include: Needing to urinate right away (urgently). Frequent urination or passing small amounts of urine frequently. Pain or burning with urination. Blood in the urine. Urine that smells bad or unusual. Trouble urinating. Cloudy urine. Pain in the abdomen or lower back. Vaginal discharge. You may also have: Vomiting or a decreased appetite. Confusion. Irritability or tiredness. A fever. Diarrhea. How does this affect my baby? An untreated UTI during could lead to a kidney infection or a systemic infection, which can cause health problems that could affect your baby. Possible complications of an untreated UTI include: Giving to your baby before 37 weeks of (premature). Having a baby with a low weight. Developing high blood pressure during (preeclampsia). Having a low hemoglobin level (anemia). What can I do to lower my risk? To prevent a UTI: Go to the bathroom as soon as you feel the need. Do not hold urine for long periods of time. Always wipe from front to back, especially after a bowel movement. Use each tissue one time when you wipe. Empty your bladder after sex. Keep your genital area dry. Drink 6 10 glasses of water each day. Do not douche or use deodorant sprays. How is this treated? Treatment for this condition may include: Antibiotic medicines that are safe to take during . Other medicines to treat less common causes of UTI. Follow these instructions at home: If you were prescribed an antibiotic medicine, take it as told by your health care provider. Do notstop using the antibiotic even if you start to feel better. Keep all follow-up visits as told by your health care provider. This is important. Contact a health care provider if: Your symptoms do not improve or they get worse. You have abnormal vaginal discharge. Get help right away if you: Have a fever. Have nausea and vomiting. Have back or side pain. Feel contractions in your uterus. Have lower belly pain. Have a gush of fluid from your vagina. Have blood in your urine. Summary A urinary tract infection (UTI) is an infection of any part of the urinary tract, which includes the kidneys, ureters, bladder, and urethra. Most urinary tract infections are caused by bacteria in your genital area, around the entrance to your urinary tract (urethra). You are more likely to develop a UTI during . If you were prescribed an antibiotic medicine, take it as told by your health care provider. Do notstop using the antibiotic even if you start to feel better. This information is not intended to replace advice given to you by your health care provider. Make sure you discuss any questions you have with your health care provider. Document Released: 01/26/2012 Document Revised: 01/23/2020 Document Reviewed: 09/04/2019 GiveNext Patient Education 2020 iConText. 07/17/2022 09:55:44 Urinary Tract Infection, Adult Urinary Tract Infection, Adult A urinary tract infection (UTI) is an infection of any part of the urinary tract. The urinary tractincludes the kidneys, ureters, bladder, and urethra. These organs make, store, and get rid of urinein the body. Your health care provider may use other names to describe the infection. An upper UTI affects the ureters and kidneys (pyelonephritis). A lower UTI affects the bladder (cystitis) and urethra (urethritis). What are the causes? Most urinary tract infections are caused by bacteria in your genital area, around the entrance to your urinary tract (urethra). These bacteria grow and cause inflammation of your urinary tract. What increases the risk? You are more likely to develop this condition if: You have a urinary catheter that stays in place (indwelling). You are not able to control when you urinate or have a bowel movement (you have incontinence). You are female and you: ?Use a spermicide or diaphragm for control. ?Have low estrogen levels. ?Are . You have certain genes that increase your risk (genetics). You are sexually active. You take antibiotic medicines. You have a condition that causes your flow of urine to slow down, such as: ?An enlarged prostate, if you are male. ?Blockage in your urethra (stricture). ?A kidney stone. ?A nerve condition that affects your bladder control (neurogenic bladder). ?Not getting enough to drink, or not urinating often. You have certain medical conditions, such as: ?Diabetes. ?A weak disease-fighting system (immunesystem). ?Sickle cell disease. ?Gout. ?Spinal cord injury. What are the signs or symptoms? Symptoms of this condition include: Needing to urinate right away (urgently). Frequent urination or passing small amounts of urine frequently. Pain or burning with urination. Blood in the urine. Urine that smells bad or unusual. Trouble urinating. Cloudy urine. Vaginal discharge, if you are female. Pain in the abdomen or the lower back. You may also have: Vomiting or a decreased appetite. Confusion. Irritability or tiredness. A fever. Diarrhea. The first symptom in older adults may be confusion. In some cases, they may not have any symptoms until the infection has worsened. How is this diagnosed? This condition is diagnosed based on your medical history and a physical exam. You may also have other tests, including: Urine tests. Blood tests. Tests for sexually transmitted infections (STIs). If you have had more than one UTI, a cystoscopy or imaging studies may be done to determine the cause of the infections. How is this treated? Treatment for this condition includes: Antibiotic medicine. Thil-yed-uyvruxe medicines to treat discomfort. Drinking enough water to stay hydrated. If you have frequent infections or have other conditions such as a kidney stone, you may need to see a health care provider who specializes in the urinary tract (urologist). In rare cases, urinary tract infections can cause sepsis. Sepsis is a life- threatening condition that occurs when the body responds to an infection. Sepsis is treated in the hospital with IV antibiotics, fluids, and other medicines. Follow these instructions at home: Medicines Take uome-ppc-ijgsbur and prescription medicines only as told by your health care provider. If you were prescribed an antibiotic medicine, take it as told by your health care provider. Do notstop using the antibiotic even if you start to feel better. General instructions Make sure you: ?Empty your bladder often and completely. Do not hold urine for long periods of time. ?Empty your bladder after sex. ?Wipe from front to back after a bowel movement if you are female. Use each tissue one time when you wipe. Drink enough fluid to keep your urine pale yellow. Keep all follow-up visits as told by your health care provider. This is important. Contact a health care provider if: Your symptoms do not get better after 1 2 days. Your symptoms go away and then return. Get help right away if you have: Severe pain in your back or your lower abdomen. A fever. Nausea or vomiting. Summary A urinary tract infection (UTI) is an infection of any part of the urinary tract, which includes the kidneys, ureters, bladder, and urethra. Most urinary tract infections are caused by bacteria in your genital area, around the entrance to your urinary tract (urethra). Treatment for this condition often includes antibiotic medicines. If you were prescribed an antibiotic medicine, take it as told by your health care provider. Do notstop using the antibiotic even if you start to feel better. Keep all follow-up visits as told by your health care provider. This is important. This information is not intended to replace advice given to you by your health care provider. Make sure you discuss any questions you have with your health care provider. Document Released: 07/11/2006 Document Revised: 09/18/2019 Document Reviewed: 04/10/2019 GiveNext Patient Education 2020 iConText. Follow Up Care 07/17/2022 09:04:38 With:Luis Carlos Jung Address: [address] [address] Business (1) When:07/20/2022 09:46:49 With:TAHNG MILLAN Address: [address] [place] [address] Business (1) When:07/20/2022 09:46:41 Comments:Follow-up with your primary care provider in 3 to 5 days. If symptoms worsen, do not improve, or new symptoms arise please report back to emergency department for further evaluation. [facility]09-14-2022 Evaluation + Plan note Diagnostic Tests Pending * RPR with Conf Rfx 06/28/22 [facility]09-12-2022 Hospital Discharge instructions Patient Education 06/26/2022 21:35:59 Monitoring Overview Monitoring Overview Monitoring your developing baby (fetus) before can identify potential problems for you and your baby. monitoring can: Help prevent serious problems from developing. Guide health care providers in how best to care for your unborn baby. Check your unborn baby s overall health. The amount of monitoring and the specific tests that will be done will vary. It will depend on whether your is considered to be low or high risk. For example, you may need certain tests if you have a medical problem that can put your unborn baby at risk. Health care providers use several techniques and tests to monitor your baby before . No singletest is perfectly accurate, and you may need to follow up with your health care provider if there are any concerns. movement counts When you are past 20 weeks of , you may feel your baby move. As your baby gets bigger, these movements are easier to feel. A movement count is when you count the number of movements (kicks, flutters, swishes, rolls, or jabs) over a specific period of time. You record the number and report it to your health care provider. This is often recommended in high-risk pregnancies, but it isgood for every woman to do. Your health care provider may ask you to start counting movements at 28 weeks of . Non-stress test The non-stress test: Evaluates heartbeat: ?While your baby is at rest. ?While your baby is moving. Is often done as part of a set of tests called the biophysical profile. May show signs that it is time for your baby to be delivered. The heart rate in a healthy baby will speed up when the baby moves or kicks. The heart rate will decrease at rest, and the peaks or accelerations of the heart rate will be lower. If the test brings up any questions or concerns, you may need to have more testing. This test may be done if your goes past your due date. It is also commonly done in high-risk pregnancies beginning at 32 weeks. Biophysical profile The biophysical profile is a set of tests that are done to find out how well the baby is doing. It includes the non-stress test along with imaging tests that use sound waves (ultrasound) to create images of your baby. In a biophysical profile, the following tests are done and scored: heartbeat. breathing. movements. muscle tone. Amount of amniotic fluid. Each test gets a score of either 2 (normal) or 0 (abnormal). The scores are then added together fora total score. A low score may mean that you and your baby need additional monitoring or special care. Sometimes your health care provider may recommend that you deliver early. This test is usually done after 32 weeks of . It can be done sooner, if needed. Contraction stress test A contraction stress test monitors the heart rate of your baby during contractions. The test checksto see how your baby will tolerate the stress of labor. Health care providers use this test to further evaluate your baby when other tests, such as the biophysical profile, have shown that there may be a problem. This test may be done: Any time you are in labor. Between weeks 32 and 34 of your . Later, if necessary. Modified biophysical profile A modified biophysical profile is a two-part test. You will have: An ultrasound exam, to check how much fluid is surrounding your baby inside of your womb (amniotic fluid). A non-stress test, to check your baby s heart rate. The results will determine whether a full biophysical profile may be needed. This test is usually done late in your final 3 months (third trimester) of . Umbilical artery Doppler velocimetry Umbilical artery Doppler velocimetry uses sound waves to measure the flow of blood between you and your baby. This test: Measures the amount of blood flow through the cord that attaches your baby to your womb (umbilical cord). Measures the speed of the blood flow. You likely only need this test to check your baby's condition if you have a high-risk . All types of monitoring aim to protect your health and that of your baby. The best way to have a healthy and a healthy baby is to learn as much as you can about your and to work closely with all your health care providers. This information is not intended to replace advice given to you by your health care provider. Make sure you discuss any questions you have with your health care provider. Document Released: 09/21/2003 Document Revised: 06/25/2018 Document Reviewed: 04/30/2017 GiveNext Patient Education 2020 iConText. 06/26/2022 21:35:59 Form - Movement Counts Movement Counts Patient Name: Patient Due Date: What is a movement count? A movement count is the number of times that you feel your baby move during a certain amount of time. This may also be called a kick count. A movement count is recommended for every woman. You may be asked to start counting movements as early as week 28 of your . Pay attention to when your baby is most active. You may notice your baby's sleep and wake cycles. You may also notice things that make your baby move more. You should do a movement count: When your baby is normally most active. At the same time each day. A good time to count movements is while you are resting, after having something to eat and drink. How do I count movements? 1.Find a quiet, comfortable area. Sit, or lie down on your side. 2.Write down the date, the start time and stop time, and the number of movements that you felt between those two times. Take this information with you to your health care visits. 3.For 2 hours, count kicks, flutters, swishes, rolls, and jabs. You should feel at least 10 movements during 2 hours. 4.You may stop counting after you have felt 10 movements. 5.If you do not feel 10 movements in 2 hours, have something to eat and drink. Then, keep resting and counting for 1 hour. If you feel at least 4 movements during that hour, you may stop counting. Contact a health care provider if: You feel fewer than 4 movements in 2 hours. Your baby is not moving like he or she usually does. Date: Start time: Stop time: Movements: Date: Start time: Stop time: Movements: Date: Start time: Stop time: Movements: Date: Start time: Stop time: Movements: Date: Start time: Stop time: Movements: Date: Start time: Stop time: Movements: Date: Start time: Stop time: Movements: Date: Start time: Stop time: Movements: Date: Start time: Stop time: Movements: This information is not intended to replace advice given to you by your health care provider. Make sure you discuss any questions you have with your health care provider. Document Released: 10/31/2007 Document Revised: 10/21/2019 Document Reviewed: 11/09/2016 GiveNext Patient Education 2020 iConText. Follow Up Care 06/26/2022 20:41:33 With:Luis Carlos Jung Address: [address], [address] [address] Business (1) When:07/03/2022 07:45:00 Comments:Call for any problems.Please call if you need to rescheduleReturn for decreased movement [facility]09-05-2022 Hospital Discharge instructions Follow Up Care 06/18/2022 23:33:38 With:Luis Carlos Jung Address: [address], [facility] [address] [place] [address] Business (1) When:5 to 7 days Comments:Appointment has already been scheduledCall for any problems.Call for fever > 100.5 FCall for severe abdominal painCall physician for heavy vaginal bleedingPlease call if you need to rescheduleReturn for contractions closer, longer, harderReturn for decreased movementReturn if ruptured membranes or vaginal bleeding [facility]07-18-2022 Hospital Discharge instructions Follow Up Care 05/01/2022 17:08:54 With:Luis Carlos Jung Address: [address], [address] [address] Business (1) When:05/09/2022 Comments:Return if ruptured membranes or vaginal bleedingReturn for contractions closer, longer, harderCall physician if symptoms worsenCall physician for heavy vaginal bleedingCall for severe abdominal painCall for fever > 100.5 FCall for any problems. drink more fluids including gatorade, take milk of magnesia twice /day until yo u have bowel movements, benefiber daily [facility]06-19-2022 Evaluation + Plan note Diagnostic Tests Pending * Urine Culture 04/02/22 [facility]06-19-2022 Hospital Discharge instructions Patient Education 04/02/2022 10:22:48 Second Trimester of , Hfuk-dm-Thli Second Trimester of The second trimester is from week 14 through week 27 (month 4 through 6). This is often the time inpregnancy that you feel your best. Often times, morning sickness has lessened or quit. You may havemore energy, and you may get hungry more often. Your unborn baby is growing rapidly. At the end of the sixth month, he or she is about 9 inches long and weighs about 1 pounds. You will likely feel the baby move between 18 and 20 weeks of . Follow these instructions at home: Medicines Take rgrh-uig-oqmzjel and prescription medicines only as told by your doctor. Some medicines are safe and some medicines are not safe during . Take a vitamin that contains at least 600 micrograms (mcg) of folic acid. If you have trouble pooping (constipation), take medicine that will make your stool soft (stool softener) if your doctor approves. Eating and drinking Eat regular, healthy meals. Avoid raw meat and uncooked cheese. If you get low calcium from the food you eat, talk to your doctor about taking a daily calcium supplement. Avoid foods that are high in fat and sugars, such as fried and sweet foods. If you feel sick to your stomach (nauseous) or throw up (vomit): ?Eat 4 or 5 small meals a day instead of 3 large meals. ?Try eating a few soda crackers. ?Drink liquids between meals instead of during meals. To prevent constipation: ?Eat foods that are high in fiber, like fresh fruits and vegetables, whole grains, and beans. ?Drink enough fluids to keep your pee (urine) clear or pale yellow. Activity Exercise only as told by your doctor. Stop exercising if you start to have cramps. Do not exercise if it is too hot, too humid, or if you are in a place of great height (high altitude). Avoid heavy lifting. Wear low-heeled shoes. Sit and stand up straight. You can continue to have sex unless your doctor tells you not to. Relieving pain and discomfort Wear a good support bra if your breasts are tender. Take warm water baths (sitz baths) to soothe pain or discomfort caused by hemorrhoids. Use hemorrhoid cream if your doctor approves. Rest with your legs raised if you have leg cramps or low back pain. If you develop puffy, bulging veins (varicose veins) in your legs: ?Wear support hose or compression stockings as told by your doctor. ?Raise (elevate) your feet for 15 minutes, 3 4 times a day. ?Limit salt in your food. care Write down your questions. Take them to your visits. Keep all your visits as told by your doctor. This is important. Safety Wear your seat belt when driving. Make a list of emergency phone numbers, including numbers for family, friends, the hospital, and police and fire departments. General instructions Ask your doctor about the right foods to eat or for help finding a counselor, if you need these services. Ask your doctor about local classes. Begin classes before month 6 of your . Do not use hot tubs, steam rooms, or saunas. Do not douche or use tampons or scented sanitary pads. Do not cross your legs for long periods of time. Visit your dentist if you have not done so. Use a soft toothbrush to brush your teeth. Floss gently. Avoid all smoking, herbs, and alcohol. Avoid drugs that are not approved by your doctor. Do not use any products that contain nicotine or tobacco, such as cigarettes and e-cigarettes. If you need help quitting, ask your doctor. Avoid cat litter boxes and soil used by cats. These carry germs that can cause defects in thebaby and can cause a loss of your baby (miscarriage) or stillbirth. Contact a doctor if: You have mild cramps or pressure in your lower belly. You have pain when you pee (urinate). You have bad smelling fluid coming from your vagina. You continue to feel sick to your stomach (nauseous), throw up (vomit), or have watery poop (diarrhea). You have a nagging pain in your belly area. You feel dizzy. Get help right away if: You have a fever. You are leaking fluid from your vagina. You have spotting or bleeding from your vagina. You have severe belly cramping or pain. You lose or gain weight rapidly. You have trouble catching your breath and have chest pain. You notice sudden or extreme puffiness (swelling) of your face, hands, ankles, feet, or legs. You have not felt the baby move in over an hour. You have severe headaches that do not go away when you take medicine. You have trouble seeing. Summary The second trimester is from week 14 through week 27 (months 4 through 6). This is often the time in that you feel your best. To take care of yourself and your unborn baby, you will need to eat healthy meals, take medicines only if your doctor tells you to do so, and do activities that are safe for you and your baby. Call your doctor if you get sick or if you notice anything unusual about your . Also, callyour doctor if you need help with the right food to eat, or if you want to know what activities aresafe for you. This information is not intended to replace advice given to you by your health care provider. Make sure you discuss any questions you have with your health care provider. Document Released: 12/26/2010 Document Revised: 01/23/2020 Document Reviewed: 11/06/2017 [employer] Patient Education 2020 [employer]. 04/02/2022 10:22:48 Vaginal Bleeding During , Second Trimester Vaginal Bleeding During , Second Trimester A small amount of bleeding (spotting) from the vagina is relatively common during . It usually stops on its own. Various things can cause spotting during . Sometimes the bleeding isnormal and is not a sign of a problem in the . However, bleeding can also be a sign of something serious. Be sure to tell your health care provider about any vaginal bleeding right away. Some possible causes of vaginal bleeding during the second trimester include: Infection, inflammation, or growths (polyps) on the cervix. A condition in which the placenta partially or completely covers the opening of the cervix inside the uterus (placenta previa). The placenta from the uterus (placenta abruption). Early () labor. The cervix opening and thinning before is at term and before labor starts (cervical insufficiency). A mass of tissue developing in the uterus due to an egg being fertilized incorrectly (molar ). Follow these instructions at home: Activity Follow instructions from your health care provider about limiting your activity. Ask what activities are safe for you. If needed, make plans for someone to help with your regular activities. Do not exercise or do activities that take a lot of effort unless your health care provider approves. Do not lift anything that is heavier than 10 lb (4.5 kg), or the limit that your health care provider tells you, until he or she says that it is safe. Do not have sex or orgasms until your health care provider says that this is safe. Medicines Take zlub-uuc-hylibga and prescription medicines only as told by your health care provider. Do not take aspirin because it can cause bleeding. General instructions Pay attention to any changes in your symptoms. Write down how many pads you use each day, how often you change pads, and how soaked (saturated) they are. Do not use tampons or douche. If you pass any tissue from your vagina, save the tissue so you can show it to your health care provider. Keep all follow-up visits as told by your health care provider. This is important. Contact a health care provider if: You have vaginal bleeding during any time of your . You have cramps or labor pains. You have a fever that does not get better when you take medicines. Get help right away if: You have severe cramps in your back or abdomen. You have contractions. You have chills. You pass large clots or a large amount of tissue from your vagina. Your bleeding increases. You feel light-headed or weak, or you faint. You are leaking fluid or have a gush of fluid from your vagina. Summary Various things can cause bleeding or spotting in . Be sure to tell your health care provider about any vaginal bleeding right away. Follow instructions from your health care provider about limiting your activity. Ask what activities are safe for you. This information is not intended to replace advice given to you by your health care provider. Make sure you discuss any questions you have with your health care provider. Document Released: 07/11/2006 Document Revised: 01/20/2020 Document Reviewed: 01/03/2018 [employer] Patient Education 2020 [employer]. Follow Up Care 04/02/2022 06:00:26 With:Dr. Jung [phone] Address:Unknown When:2 to 3 days Comments:Call for any problems.Call physician if symptoms worsen [facility]06-09-2022 Hospital Discharge instructions Patient Education 03/23/2022 20:39:21 Second Trimester of , Iiys-zw-Leyt Second Trimester of The second trimester is from week 14 through week 27 (month 4 through 6). This is often the time inpregnancy that you feel your best. Often times, morning sickness has lessened or quit. You may havemore energy, and you may get hungry more often. Your unborn baby is growing rapidly. At the end of the sixth month, he or she is about 9 inches long and weighs about 1 pounds. You will likely feel the baby move between 18 and 20 weeks of . Follow these instructions at home: Medicines Take wbil-tgw-droqspx and prescription medicines only as told by your doctor. Some medicines are safe and some medicines are not safe during . Take a vitamin that contains at least 600 micrograms (mcg) of folic acid. If you have trouble pooping (constipation), take medicine that will make your stool soft (stool softener) if your doctor approves. Eating and drinking Eat regular, healthy meals. Avoid raw meat and uncooked cheese. If you get low calcium from the food you eat, talk to your doctor about taking a daily calcium supplement. Avoid foods that are high in fat and sugars, such as fried and sweet foods. If you feel sick to your stomach (nauseous) or throw up (vomit): ?Eat 4 or 5 small meals a day instead of 3 large meals. ?Try eating a few soda crackers. ?Drink liquids between meals instead of during meals. To prevent constipation: ?Eat foods that are high in fiber, like fresh fruits and vegetables, whole grains, and beans. ?Drink enough fluids to keep your pee (urine) clear or pale yellow. Activity Exercise only as told by your doctor. Stop exercising if you start to have cramps. Do not exercise if it is too hot, too humid, or if you are in a place of great height (high altitude). Avoid heavy lifting. Wear low-heeled shoes. Sit and stand up straight. You can continue to have sex unless your doctor tells you not to. Relieving pain and discomfort Wear a good support bra if your breasts are tender. Take warm water baths (sitz baths) to soothe pain or discomfort caused by hemorrhoids. Use hemorrhoid cream if your doctor approves. Rest with your legs raised if you have leg cramps or low back pain. If you develop puffy, bulging veins (varicose veins) in your legs: ?Wear support hose or compression stockings as told by your doctor. ?Raise (elevate) your feet for 15 minutes, 3 4 times a day. ?Limit salt in your food. care Write down your questions. Take them to your visits. Keep all your visits as told by your doctor. This is important. Safety Wear your seat belt when driving. Make a list of emergency phone numbers, including numbers for family, friends, the hospital, and police and fire departments. General instructions Ask your doctor about the right foods to eat or for help finding a counselor, if you need these services. Ask your doctor about local classes. Begin classes before month 6 of your . Do not use hot tubs, steam rooms, or saunas. Do not douche or use tampons or scented sanitary pads. Do not cross your legs for long periods of time. Visit your dentist if you have not done so. Use a soft toothbrush to brush your teeth. Floss gently. Avoid all smoking, herbs, and alcohol. Avoid drugs that are not approved by your doctor. Do not use any products that contain nicotine or tobacco, such as cigarettes and e-cigarettes. If you need help quitting, ask your doctor. Avoid cat litter boxes and soil used by cats. These carry germs that can cause defects in thebaby and can cause a loss of your baby (miscarriage) or stillbirth. Contact a doctor if: You have mild cramps or pressure in your lower belly. You have pain when you pee (urinate). You have bad smelling fluid coming from your vagina. You continue to feel sick to your stomach (nauseous), throw up (vomit), or have watery poop (diarrhea). You have a nagging pain in your belly area. You feel dizzy. Get help right away if: You have a fever. You are leaking fluid from your vagina. You have spotting or bleeding from your vagina. You have severe belly cramping or pain. You lose or gain weight rapidly. You have trouble catching your breath and have chest pain. You notice sudden or extreme puffiness (swelling) of your face, hands, ankles, feet, or legs. You have not felt the baby move in over an hour. You have severe headaches that do not go away when you take medicine. You have trouble seeing. Summary The second trimester is from week 14 through week 27 (months 4 through 6). This is often the time in that you feel your best. To take care of yourself and your unborn baby, you will need to eat healthy meals, take medicines only if your doctor tells you to do so, and do activities that are safe for you and your baby. Call your doctor if you get sick or if you notice anything unusual about your . Also, callyour doctor if you need help with the right food to eat, or if you want to know what activities aresafe for you. This information is not intended to replace advice given to you by your health care provider. Make sure you discuss any questions you have with your health care provider. Document Released: 12/26/2010 Document Revised: 01/23/2020 Document Reviewed: 11/06/2017 [employer] Patient Education 2020 [employer]. 03/23/2022 20:39:21 First Trimester of , Hhqb-xr-Gjhv First Trimester of The first trimester of is from week 1 until the end of week 13 (months 1 through 3). During this time, your baby will begin to develop inside you. At 6 8 weeks, the eyes and face are formed, and the heartbeat can be seen on ultrasound. At the end of 12 weeks, all the baby's organs are formed. care is all the medical care you receive before the of your baby. Make sure you get good care and follow all of your doctor's instructions. Follow these instructions at home: Medicines Take nxpz-edj-ekxljjk and prescription medicines only as told by your doctor. Some medicines are safe and some medicines are not safe during . Take a vitamin that contains at least 600 micrograms (mcg) of folic acid. If you have trouble pooping (constipation), take medicine that will make your stool soft (stool softener) if your doctor approves. Eating and drinking Eat regular, healthy meals. Your doctor will tell you the amount of weight gain that is right for you. Avoid raw meat and uncooked cheese. If you feel sick to your stomach (nauseous) or throw up (vomit): ?Eat 4 or 5 small meals a day instead of 3 large meals. ?Try eating a few soda crackers. ?Drink liquids between meals instead of during meals. To prevent constipation: ?Eat foods that are high in fiber, like fresh fruits and vegetables, whole grains, and beans. ?Drink enough fluids to keep your pee (urine) clear or pale yellow. Activity Exercise only as told by your doctor. Stop exercising if you have cramps or pain in your lower belly (abdomen) or low back. Do not exercise if it is too hot, too humid, or if you are in a place of great height (high altitude). Try to avoid standing for long periods of time. Move your legs often if you must adding machine mechanic one placefor a long time. Avoid heavy lifting. Wear low-heeled shoes. Sit and stand up straight. You can have sex unless your doctor tells you not to. Relieving pain and discomfort Wear a good support bra if your breasts are sore. Take warm water baths (sitz baths) to soothe pain or discomfort caused by hemorrhoids. Use hemorrhoid cream if your doctor says it is okay. Rest with your legs raised if you have leg cramps or low back pain. If you have puffy, bulging veins (varicose veins) in your legs: ?Wear support hose or compression stockings as told by your doctor. ?Raise (elevate) your feet for 15 minutes, 3 4 times a day. ?Limit salt in your food. care Schedule your visits by the twelfth week of . Write down your questions. Take them to your visits. Keep all your visits as told by your doctor. This is important. Safety Wear your seat belt at all times when driving. Make a list of emergency phone numbers. The list should include numbers for family, friends, the hospital, and police and fire departments. General instructions Ask your doctor for a referral to a local class. Begin classes no later than at the start of month 6 of your . Ask for help if you need counseling or if you need help with nutrition. Your doctor can give you advice or tell you where to go for help. Do not use hot tubs, steam rooms, or saunas. Do not douche or use tampons or scented sanitary pads. Do not cross your legs for long periods of time. Avoid all herbs and alcohol. Avoid drugs that are not approved by your doctor. Do not use any tobacco products, including cigarettes, chewing tobacco, and electronic cigarettes. If you need help quitting, ask your doctor. You may get counseling or other support to help you quit. Avoid cat litter boxes and soil used by cats. These carry germs that can cause defects in thebaby and can cause a loss of your baby (miscarriage) or stillbirth. Visit your dentist. At home, brush your teeth with a soft toothbrush. Be gentle when you floss. Contact a doctor if: You are dizzy. You have mild cramps or pressure in your lower belly. You have a nagging pain in your belly area. You continue to feel sick to your stomach, you throw up, or you have watery poop (diarrhea). You have a bad smelling fluid coming from your vagina. You have pain when you pee (urinate). You have increased puffiness (swelling) in your face, hands, legs, or ankles. Get help right away if: You have a fever. You are leaking fluid from your vagina. You have spotting or bleeding from your vagina. You have very bad belly cramping or pain. You gain or lose weight rapidly. You throw up blood. It may look like coffee grounds. You are around people who have Sudanese measles, fifth disease, or chickenpox. You have a very bad headache. You have shortness of breath. You have any kind of trauma, such as from a fall or a car accident. Summary The first trimester of is from week 1 until the end of week 13 (months 1 through 3). To take care of yourself and your unborn baby, you will need to eat healthy meals, take medicines only if your doctor tells you to do so, and do activities that are safe for you and your baby. Keep all follow-up visits as told by your doctor. This is important as your doctor will have to ensure that your baby is healthy and growing well. This information is not intended to replace advice given to you by your health care provider. Make sure you discuss any questions you have with your health care provider. Document Released: 03/19/2009 Document Revised: 01/22/2020 Document Reviewed: 10/09/2017 [employer] Patient Education 2020 [employer] 03/23/2022 20:39:21 Abdominal Pain During , Tuop-rv-Vgpa Abdominal Pain During Belly (abdominal) pain is common during . There are many possible causes. Most of the time, it is not a serious problem. Other times, it can be a sign that something is wrong with the . Always tell your doctor if you have belly pain. Follow these instructions at home: Do not have sex or put anything in your vagina until your pain goes away completely. Get plenty of rest until your pain gets better. Drink enough fluid to keep your pee (urine) pale yellow. Take gttt-fjl-amorzbs and prescription medicines only as told by your doctor. Keep all follow-up visits as told by your doctor. This is important. Contact a doctor if: Your pain continues or gets worse after resting. You have lower belly pain that: ?Comes and goes at regular times. ?Spreads to your back. ?Feels like menstrual cramps. You have pain or burning when you pee (urinate). Get help right away if: You have a fever or chills. You have vaginal bleeding. You are leaking fluid from your vagina. You are passing tissue from your vagina. You throw up (vomit) for more than 24 hours. You have watery poop (diarrhea) for more than 24 hours. Your baby is moving less than usual. You feel very weak or faint. You have shortness of breath. You have very bad pain in your upper belly. Summary Belly (abdominal) pain is common during . There are many possible causes. If you have belly pain during , tell your doctor right away. Keep all follow-up visits as told by your doctor. This is important. This information is not intended to replace advice given to you by your health care provider. Make sure you discuss any questions you have with your health care provider. Document Released: 09/19/2010 Document Revised: 01/19/2020 Document Reviewed: 01/03/2018 [employer] Patient Education 2020 [employer]. Follow Up Care 03/23/2022 19:35:57 With:Luis Carlos Jung Address: [facility] [address] [address] Business (1) When:03/27/2022 10:00:00 Comments:Call for any problems. Call [facility] first, ask to speak directly to Dr. Jung before heading to hospital unless an emergency. Call for severe abdominal pain or worsening pain.Return if vaginal bleedingor ruptured membranes.Wear belly band as much as possible, especially as your belly grows in . [facility]05-04-2022 Evaluation + Plan note Diagnostic Tests Pending * RPR with Conf Rfx 02/15/22 * HIV Screen 4th Generation wRfx 02/15/22 * Rubella Antibody IgG 02/15/22 * Hepatitis B Surface Antigen 02/15/22 * Urine Culture 02/15/22 [facility]06-18-2021 NoteHNO ID: [id number] Author: Bert Negrete, DO Service: ? Author Type: Fellow Type: Progress Notes Filed: 04/01/2021 9:15 AM Note Text: [facility] [address] [place], [place] [address] Martha Webb (Kelsey) [address] [facility] [address] PCP: Thang Millan NP Accompanied by: Mother CC: Headache HPI: Susan Bro is a 25 year old year old, woman who is here for the evaluation and management of the patient's Headache. She has significant medical history including: nausea vomiting Headache 1 This is the current headache. Onset: - Teenager, progressively worsened. Denies precipitating factors. Severity: 07/24 Location: can be all over. Quality/Description: throbbing Associated symptoms: blurred vision, photophobia, phonophobia, osmophobia, nausea, vomiting and relieved in supine position (diplopia) Worse with activity: yes Frequency of headache: 20 per month Number of migraine headache days/month: 15 Number of NON-migraine headache days/month: 5 Number of headache free days/month: 10 Duration of headaches with treatment: Duration of attacks with treatment: 2-3 days. Current treatment: Ibuprofen - almost Triggers: bright lights, weather changes and loud noise Onset of headache to peak: gradual Positional changes: no Most common time of day for headache to begin: anytime Aura: none Time missed from work or school in the last month: 4 days Lifestyle: Sleep: restless Diet: caffeine: Yes,2 - 2 liters of mountain dew, alcohol no, tobacco: yes - quitting , recreational drugs: no Exercise: when she can Mood: depression/anxiety - denies SI Prior Therapies Duration of Use Dose Reason for Discontinuation Over the Counter Medications Ibuprofen (Advil, Motrin) Current Medications: Current Outpatient Medications Medication Sig - amitriptyline (ELAVIL) 10 mg tablet Take 1 tab at bed x 1 week, then take 2 tabs at bed x 1 week, then 3 tabs at bed and continue this dose - rizatriptan (MAXALT-POWDERER) 10 mg disintegrating tablet Take 1 tablet by mouth as needed for Migraine Headache (see administration instructions). AT ONSET OF HEADACHE. MAY REPEAT AFTER 2 HOURS. DO NOT EXCEED 30 MG PER DAY. No current facility-administered medications for this visit. Previous testing: none Family History: FAMILY HISTORY Problem Relation Age of Onset - Psoriasis Mother - Psoriasis Brother - Colon Polyps Maternal Grandmother - Colon Polyps Maternal Grandfather - Colon Cancer No Family History - Pancreatitis No Family History - Pancreatic Cancer No Family History - Crohn's Disease No Family History - Ulcerative Colitis No Family History - Celiac Disease No Family History Migraine or other headaches in the family: Yes Uncles Aneurysms in a first degree relative: No Brain tumors in the family: No Other neurological illness in the family: No Past Medical History: No past medical history on file. No past medical history pertinent negatives. Past Surgical History PAST SURGICAL HISTORY Procedure Laterality Date - CHOLECYSTECTOMY - COLONOSCOPY AND BIOPSY 10/18/2020 internal hemorrhoids - EGD BIOPSY SING OR MULT 10/18/2020 normal Social History: Social History Tobacco Use - Smoking status: Current Every Day Smoker Packs/day: 0.50 Years: 13.00 Pack years: 6.50 - Smokeless tobacco: Never Used - Tobacco comment: 1/2 pk a day Vaping Use - Vaping Use: Never used Substance Use Topics - Alcohol use: Not Currently - Drug use: Not Currently Types: Marijuana REVIEW OF SYSTEMS: General: No fevers, sweats, chills, nightsweats, change in appetite, change in weight, change in energy. HEENT: no changes in hearing or vision, no nose bleeds or other nasal problems CV: No limb swelling, palpitations, HTN, CHF, CAD, chest pain. Pulmonary: Negative for cough, wheezing and shortness of breath GI: nausea, vomiting Musculoskeletal: negative for back pain, muscle pain and arthritis : No urinary tract infections, kidney stones, hematuria or nocturia Neuro: See HPI Psychiatric: negative for sleep disturbance, mood disorder and recent psychosocial stressors HEADACHE SCORES: Headache Questions 04/01/2021 ID Migraine Screener: 3 (Positive) Migraine days per month: 15 ER visits in the last year: 3 Hospital stays in the last year: 0 Limited ADLs in the last month: 8 Time missed from work or school in the last month: 4 Days headache pain free in the last month: 0 Days per month with ALL of the following symptoms - decreased productivity, light sensitivity and nausea: 5 Days per month with non-migraine headache: 25 PRN medication usage in the last month: 10 HIT-6 04/01/2021 HIT-6 68 (Severe impact) KYLIE - 2/7 SCORES 04/01/2021 KYLIE-2 Score 4 KYLIE-7 Score 13 Migraine Specific QOL - Higher scores indicate better HRQL 04/01/2021 Role Function-Restrictive Transformed Score (ran (more content not included)... [facility]06-10-2021 NoteHNO ID: [id number] Author: Karen Vinson RT(R) Service: Nuclear Medicine Author Type: Corn Sheller Operator Type: Progress Notes Filed: 03/24/2021 9:39 AM Note Text: RADIOLOGY SERVICE PROGRESS NOTE SERVICE DATE: 03/24/2021 SERVICE TIME: 9:38 AM PATIENT IDENTITY VERIFICATION COMPLETED USING TWO (2) STANDARD IDENTIFIERS: Name and Date of confirmed by patient verbally FALL SCREENING: Has the patient had 2 falls in the last year or 1 fall with injury or currently using an Ambulatory Assistive Device (Walker, Cane, Wheelchair, Crutches, etc.)? No PATIENT GENDER DATA: .female : No ALLERGIES: Reviewed and unchanged MEDICATIONS REVIEWED: No PATIENT RELEVANT IMPLANT DATA REVIEWED: Not Applicable CREATININE: No results found for: CREAT, EGFROTH, EGFRAA P.O.C.T. RESULTS: N/A March 24, [address] PERFORMED: No IV SITE: NM only - not applicable, oral or physician administered agents given to patient POST EXAM PIV STATUS: Not applicable PROCEDURE TYPE: NM GET: 1.0 mCi Tc99m SULFUR COLLOID was administered orally via 4 ounces of Egg Beaters,1 pieces of toast, 1 ounce of jelly with 8 ounces of water orally PATIENT VOMITTED MEAL AND WILL RESCHEDULE ADMINISTRATION TIME: 0740 PATIENT DISCHARGED TO: Ambulatory patient, left IN department area. A Diagnostic radioactive procedure has taken place, with no further precautions necessary other than routine body substance precautions. More information regarding radiation safety can be found using this link: [email or web address] SIGNATURE: RT Oliva(R) PATIENT NAME: Susan Bro DATE: March 24, 2021 TIME: 9:38 AM PAGER/CONTACT #:[facility]05-27-2021 NoteHNO ID: [id number] Author: Martha Webb MD Service: ? Author Type: Physician Type: Progress Notes Filed: 03/10/2021 12:03 PM Note Text: This note was created using [email or web address]. Subjective Susan Bro is a 25 year old female. New patient referral 2nd GI opinion Cc wt loss GI symptoms present for 5 yrs but recently last 6 months her symptoms have dramatically worsened. 90 lbs loss over 6 months Associated w/ loss of appetite Oral intake results in vomiting Emesis = food and thick liquids Emesis occurs immediately post oral intake (within minutes) Denies dysphagia symptom Progressing in nature Abdominal pain located midline non radiating Sharp and achy type pain Nocturnal symptoms of pain present Constipation BOWEL MOVEMENT every 7-10 days Straining occasionally required Denies bloating symptom Tried: Proton pump inhibitor = no improvement in symptom Reglan = no improvement Pepcid = no improvement Esophagogastroduodenoscopy 10/2020 Colonoscopy 10/2020 Do not have results of procedure but pathology results below Attempted esophageal manometry but failed due to inability to pass probe thru either nares History of CCY 2 yrs ago - for symptoms of vomiting Headaches present daily occurrence - frontal area Associated with blurry vision No FHx migraine headaches No history of migraine LEON treatment No history of imitrex treatment No current outpatient medications on file prior to visit. No current facility-administered medications on file prior to visit. Review of Systems Constitutional: Positive for appetite change and unexpected weight change. HENT: Positive for sinus pressure and sinus pain. Negative for ear pain, hearing loss, mouth sores, sore throat and trouble swallowing. Eyes: Positive for visual disturbance. Respiratory: Negative for cough, choking and shortness of breath. Cardiovascular: Negative for chest pain and leg swelling. Gastrointestinal: Positive for abdominal pain, constipation, nausea and vomiting. Negative for blood in stool. Genitourinary: Negative for difficulty urinating, hematuria and menstrual problem. Musculoskeletal: Positive for back pain. Negative for arthralgias and joint swelling. Skin: Positive for rash (right foot). Negative for color change. Neurological: Positive for weakness (of the legs) and headaches. Hematological: Bruises/bleeds easily. Psychiatric/Behavioral: Positive for dysphoric mood. Negative for self-injury and suicidal ideas. The patient is not nervous/anxious. Objective BP 108/76 Pulse 69 Ht 162.6 cm (5' 4 ) Wt 73 kg (161 lb) BMI 27.64 kg/m? Physical Exam Vitals reviewed. Constitutional: Appearance: She is well-developed and overweight. HENT: Head: Normocephalic. Right Ear: Hearing normal. Left Ear: Hearing normal. Eyes: General: Lids are normal. No scleral icterus. Comments: glasses Cardiovascular: Rate and Rhythm: Normal rate and regular rhythm. Heart sounds: No murmur heard. Pulmonary: Effort: Pulmonary effort is normal. Breath sounds: Normal breath sounds and air entry. Abdominal: General: Abdomen is flat. Bowel sounds are normal. There is no distension. Palpations: Abdomen is soft. There is no mass. Tenderness: There is abdominal tenderness in the right lower quadrant, suprapubic area and left lower quadrant. There is no guarding or rebound. Musculoskeletal: Right lower leg: No edema. Left lower leg: No edema. Skin: Coloration: Skin is not jaundiced. Findings: Rash (right foot) present. Comments: See Get Images of right dorsal foot rash The purpose of the photo(s) is to optimize the patient's medical care and allow a visual aid. ? ? Photo was taken of:?right foot dorsal Verbal consent was obtained?from patient Neurological: Mental Status: She is alert and oriented to person, place, and time. Psychiatric: Attention and Perception: Attention and perception normal. Mood and Affect: Mood and affect normal. Speech: Speech normal. Behavior: Behavior normal. Behavior is cooperative. Thought Content: Thought content normal. Cognition and Memory: Cognition and memory normal. Judgment: Judgment normal. 02/22/2021 low potassium 02/17/2021 bmp and cbc unremarkable 02/17/[address] Abdomen/Pelvis w/o Contrast on 02-17-2021 CT Abdomen/Pelvis w/o Contrast Exam Date/Time: 02/17/2021 00:39 EDT Reason for Exam: ABDOMINAL PAIN, ACUTE, NONLOCALIZED;Other (please specify) Report IMPRESSION: NO EVIDENCE OF OBSTRUCTIVE UROPATHY. NO EVIDENCE OF ACUTE ABDOMINAL OR PELVIC PATHOLOGY. CLINICAL HISTORY: ABDOMINAL PAIN, ACUTE, NONLOCALIZED. COMPARISON: 09/13/2017. COMMENT: Unenhanced images were obtained. The patient was moving during the study, and there are motion artifacts with degradation of image quality. There are surgical clips at the gallbladder fossa, from prior cholecystectomy. No biliary ductal dilatation is (more content not included)...[facility] [place] course Narrative No data available for this section [facility] Discharge instructions No data available for this section [facility] No data available for this section [facility] Summary Purpose Family History No Family History Records FoundNo Family History Records FoundNo Family History Records FoundNo Family History Records FoundNo Family History Records FoundNo Family History Records Found No data available for this section No data available for this section No data available for this section No Family History Records FoundNo Family History Records Found No data available for this section Advance Directives Documents on File Type Date Recorded Patient Rn Clinical Coordinator Expl anation Advance Directives and Livin g Will 10/14/2020 10:22 AM Documents on File Type Date Recorded Patient Rn Clinical Coordinator Expl anation ACP-Advance Directive ACP-Power of Oil Speculator Discharge Instructions * Discharge Instr - Care Coordination* Andra Schmid RN - 10/14/2020 11:43 AM EST [facility] Trust the experts at [facility] to meet your healthcare needs. When you make an appointment with [facility], it's the start of a long-lasting partnership that's committed to your health. We provide the very best prevention, wellness and illness care, and give you access to the advanced medical services and expert treatment available at [facility]. Please note that the provider listed below is accepting patients in your area. [place]: [address] [place] [address] MD Debby Lala MD Christina Spring, [place] For the most up-to-date information on a care provider in your community, use the Find a Doctor tool on [employer] [facility] * Attachments The following attachments cannot be sent through Care Everywhere. * Vertigo (Faroese) * Arik Maneuver: Vertigo: Exercises (Faroese) documented in this encounter* Instructions* Bakari Valente MD - 08/09/2020 Please take all medications as prescribed. Please follow up with your primary care physician by calling today, or as soon as possible, for thefirst available appointment. If you do not have a primary care physician, please contact a physician or clinic listed below today to establish care. Please return to the emergency department IMMEDIATELY if you develop uncontrolled fevers, uncontrolled vomiting, change in symptoms, worsening of symptoms, or ANY other concerns. * Attachments The following attachments cannot be sent through Care Everywhere. * Bruises (Faroese) * Contusion (Faroese) documented in this encounter Assessments Diagnosis Vertigo- Primary Dizziness and giddiness Diagnosis Contusion of right knee, initial encounter Contusion of multiple sites of right shoulder and upper arm, initial encounter Additional Source Comments INFORMATION SOURCE (unrecogn ized section and content) DATE CREATED AUTHOR 04/09/2018 [facility] DATE CREATED AUTHOR AUTHOR'S ORGANIZ ATION 08/10/2020 [facility] DATE CREATED AUTHOR AUTHOR'S ORGANIZ ATION 09/07/2020 [facility] DATE CREATED AUTHOR AUTHOR'S ORGANIZ ATION 10/20/2020 [facility] DATE CREATED AUTHOR AUTHOR'S ORGANIZ ATION 03/18/2021 [facility] DATE CREATED AUTHOR AUTHOR'S ORGANIZ ATION 11/15/2021 [facility] DATE CREATED AUTHOR AUTHOR'S ORGANIZ ATION 08/25/2023 [facility] DATE CREATED AUTHOR AUTHOR'S ORGANIZ ATION 09/14/2023 [facility] EPIC Reason for Visit (unrecogniz ed section and content) Reason Comments Dizziness Reason Comments Knee Pain right knee pain, fel l over a dust guzman [employer] and fell onto right knee. denies hitting head or any LOC Shoulder Pain rt shoulder, fell ov er dust guzman onto her right side. Susan Griffiths PA-C - 10/14/2020 10:44 AM Amena Cantrell RN - 10/14/2020 10:32 AM EST ED Notes (unrecognized secti on and content) [facility] ED Note: NAME: Susan Bro 24 y.o. CSN: [id number] PCP: Physician No History: Chief Complaint: Dizziness HPI: The history was obtained from the patient. She is a 24 y.o. female who presents with a chief complaint of Dizziness. Patient presents ambulatory complaining of dizziness. Patient states she was at work today when she got room spinning type dizziness. Patient states she felt like she was going to pass out. Patient left work and came here for evaluation. Patient states she does have a slight headache she denies any vision changes, ear pain, nasal drainage, sore throat. She denies any nausea, vomiting, diarrhea, abdominal pain. She denies any possibility of or urinary symptoms. She denies any recent COVID exposure she states she was tested a month ago and was negative. She did not take any medications for her symptoms prior to arrival. Differential diagnosis: Considerations include but not limited to; vertigo, intracranial abnormality, anemia, COVID, dehydration, , urinary tract infection PMHx: Past Medical History: Diagnosis Date H. pylori infection PMSx: Past Surgical History: Procedure Laterality Date CHOLECYSTECTOMY FAM. Hx: History reviewed. No pertinent family history. SOC. Hx: Social History Socioeconomic History Marital status: Spouse name: Not on file Number of children: Not on file Years of education: Not on file Highest education level: Not on file Occupational History Not on file Social Needs Financial resource strain: Not on file Food insecurity Worry: Not on file Inability: Not on file Transportation needs Medical: Not on file Non-medical: Not on file Tobacco Use Smoking status: Current Every Day Smoker Smokeless tobacco: Never Used Substance and Sexual Activity Alcohol use: Not Currently Drug use: Not Currently Sexual activity: Not on file Lifestyle Physical activity Days per week: Not on file Minutes per session: Not on file Stress: Not on file Relationships Social connections Talks on phone: Not on file Gets together: Not on file Attends amish service: Not on file Active member of club or organization: Not on file Attends meetings of clubs or organizations: Not on file Relationship status: Not on file Other Topics Concern Not on file Social History Narrative Not on file MEDs: Previous Medications Medication Sig metoclopramide (REGLAN) 5 MG tablet Take 5 mg by mouth 4 (four) times a day with meals and nightly . ondansetron (ZOFRAN) 4 MG tablet Take 4 mg by mouth every 8 (eight) hours as needed for nausea . venlafaxine (EFFEXOR) 75 MG tablet Take 75 mg by mouth 2 (two) times a day . ALL: Allergies Allergen Reactions Amoxicillin Penicillins ROS: Positives and pertinent negatives as per HPI. All other systems were reviewed and are negative. Constitutional: Patient denies any recent illness, fever, chills. HEENT: Patient does complain of a slight headache denies ear pain, nasal drainage, sore throat. Eyes: Patient denies any vision changes. Cardiovascular: Patient denies any chest pain. Pulmonary: Patient denies any cough or difficulty breathing. Abdominal: Patient denies any nausea, vomiting, diarrhea, abdominal pain. Genitourinary: She denies any flank pain, urinary symptoms or possibility of . Musculoskeletal: Patient denies any calf pain, pedal edema or body aches. Skin: Patient denies Neurological: Patient states that she developed room spinning type dizziness with position changes prior to arrival. She states she felt like she was going to pass out. Psychiatric/behavioral: Patient denies Physical Exam: Patient Vitals for the past 24 hrs: BP Temp Temp src Pulse Resp SpO2 Height Weight 10/14/20 1130 127/78 80 16 100 % 10/14/20 1100 129/77 71 16 100 % 10/14/20 1013 137/84 97.8 F (36.6 C) Oral 82 16 99 % 5' 4 90.7 kg (200 lb) 10/14/20 1008 100 % Physical Exam Vitals signs and nursing note reviewed. Constitutional: Appearance: Normal appearance. Comments: Well-developed female resting comfortably in the bed in no acute distress. Initial vital signs are within normal limits. HENT: Head: Normocephalic and atraumatic. Comments: Head is normocephalic and atraumatic. There is no facial asymmetry or drooping noted. TMs are nonerythematous, nonbulging bilaterally. Mucous membranes are moist there is no erythema, hypertrophy or exudate. Right Ear: Tympanic membrane normal. Left Ear: Tympanic membrane normal. Mouth/Throat: Mouth: Mucous membranes are moist. Pharynx: Oropharynx is clear. Eyes: Extraocular Movements: Extraocular movements intact. Pupils: Pupils are equal, round, and reactive to light. Comments: Extraocular movements are intact with some slight lateral nystagmus. Cardiovascular: Rate and Rhythm: Normal rate and regular rhythm. Comments: Cardiac regular rate and rhythm no murmur, rub, gallop. Pulmonary: Effort: Pulmonary effort is normal. Breath sounds: Normal breath sounds. Comments: Lungs are clear and equal bilateral with good expansion, equal chest rise. There is no wheezes, rales, rhonchi or respiratory distress. Abdominal: General: Bowel sounds are normal. Palpations: Abdomen is soft. Comments: Abdomen is soft and nontender. There is no CVA tenderness. Musculoskeletal: Normal range of motion. Skin: General: Skin is warm and dry. Neurological: General: No focal deficit present. Mental Status: She is alert and oriented to person, place, and time. Comments: There is no focal or neurosensory deficits. Patient does have reproducible vertigo with position changes. Ixhjpv-[id number] maneuvers are intact without dysmetria. There is negative Romberg sign. There was no ataxia on ambulation. Psychiatric: Mood and Affect: Mood normal. Behavior: Behavior normal. Thought Content: Thought content normal. Laboratory & Radiological Imaging (if done): Labs Reviewed URINALYSIS - Abnormal; Notable for the following components: Result Value Clarity, Urine Cloudy (*) Specific [place] 1.028 (*) pH, Urine 8.0 (*) Protein, Urine 30 (*) Urobilinogen, Urine 2.0 (*) Leukocyte Esterase, Urine Trace (*) Squamous Epithelial 18 (*) Mucus, Urine Many (*) All other components within normal limits Narrative: Microscopic examination is performed on all urinalysis samples and only positive findings are reported. The test for blood on the chemical analytic portion of urinalysis may also be positive due to hemoglobinuria and myoglobinuria and if red blood cells are present they are quantified by microscopic examination. CHEM 7 - Abnormal; Notable for the following components: Chloride 112 (*) BUN 5 (*) BUN/Creatinine Ratio 6.4 (*) Anion Gap 8 (*) All other components within normal limits Narrative: The eGFR should be used for monitoring renal function only and not for medication dosing. CBC WITH AUTO DIFFERENTIAL - Abnormal; Notable for the following components: Neutrophils Abs 8.12 (*) All other components within normal limits COVID-19/INFLUENZA A,B MOLECULAR - Normal Narrative: This test was performed under the FDA's Emergency Use Authorization (EUA). Testing was performed using the Sergey alena SARS-CoV-2 & Influenza A/B Nucleic Acid Test on the alena Sana System. This test has not been approved for use in asymptomatic patients and its performance in this patient population has not been evaluated. Negative results do not rule out the presence of SARS-CoV-2, influenza A, and/or influenza B. Fact sheets for the EUA can be found at the following links: For Healthcare Providers: https://www.[employer].gov/media/076394/download For Patients: https://www.[employer].gov/Peecho/193127/download HCG URINE, QUALITATIVE - Normal CBC AND DIFFERENTIAL Narrative: The following orders were created for panel order CBC w/ Diff. Procedure Abnormality Status --------- ------ CBC Auto Differential[[id number]] Abnormal Final result Please view results for these tests on the individual orders. HCG URINE, QUALITATIVE URINALYSIS CT Head Or Brain Without Contrast Final Result 1. No acute intracranial hemorrhage, focal edema or mass effect. Workstation ID: [id number] EKG: Normal sinus rhythm with sinus arrhythmia RATE: 74 AXIS: Normal axis INTERVALS: IN interval of 178 ms, QRS duration of 82 ms COMPARISON: No old for comparison INTERPRETATION: Normal sinus rhythm with slight sinus arrhythmia at a rate of 74. No acute ST changes indicating ischemia or injury. EKG was reviewed with Dr. Chow Procedures: Procedures ED Course / Medical Decision Making: Special isolation precautions are in place with signage outside this patient's room. This provider performs hand hygiene and enters the patient room wearing: gloves an appropriately fitting (N-95, PAPR, Aura) mask face shield protective gown to obtain HPI and perform bedside physical exam and re- evaluation(s)/interventions as necessary. See provider documentation. Patient presents amatory complaining of room spinning type dizziness at work today. Patient states she felt like she was going to pass out. She states that the dizziness is with position changes. She states she has been having a slight headache. She denies any nausea or vomiting. She denies any chest pain or shortness of breath. She denies any fever or chills. She denies any urinary symptoms or possibility of . She denies any recent COVID exposure. On exam patient's vital signs are within normal limits she is sitting upright in the bed in no acute distress. Head is normocephalic and atraumatic. Patient does have some lateral nystagmus with extraocular movements. Lungs are clear and equal. Abdomen is soft and nontender. There is no focal or neurosensory deficits. She does have reproducible dizziness with position changes. CT of the head was negative, CBC, CMP were unremarkable. Urinalysis and were negative. COVID testing was negative. Patient was given IV fluids, Antivert. Reassessment she states she does feel improved. Patient will be discharged at this time with a prescription for Antivert. She is referred to follow-up with [facility] or [place] that she does not currently have a primary care physician for any further evaluation or treatment. Patient is in agreement with this plan. Condition on discharge is stable. Clinical Impression: 1. Vertigo Disposition: Patient is being discharged to home New Prescriptions meclizine (ANTIVERT) 25 mg tablet Take 1 (one) tablet (25 mg total) by mouth 3 (three) times a day as needed for dizziness . Susan Griffiths Physicians Regulatory Compliance Manager [facility] Emergency Department Susan Griffiths PA-C 10/14/20 1203 Special isolation precautions are in place with signage outside this patient's room. This animal care supervisor performs hand hygiene and enters the patient room wearing: ? gloves ? an appropriately fitting (N-95, PAPR, Aura) mask ? face shield ? protective gown to provide care. See documentation for the care provided. documented in this encounter ED Attestation Note - Regine Chow MD - 10/14/2020 2:02 PM EST Miscellaneous Notes (unrecog nized section and content) ED Attestation ED Attestation: I did not see this patient. However, I was personally available for consult in the ED for this patient, if the Advanced Practice Provider (AZEEM) needed any assistance. The AZEEM evaluated the patient independently for a complaint of Dizziness, and completed their own examination, documentation, and discharge. documented in this encounter Source Comments (unrecognize d section and content) In the event this informatio n is protected by the [facility] Confidentiality of Alcohol and Drug Abuse Patient Records regulations: The Federal rules restrict any use of the information to criminally investigate or prosecute any alcohol or drug abuse patient.[facility] Care Team (unrecognized sect ion and content) Personnel Name: THANG MILLAN CNP Address: [address] [place] [address] Personnel Name: THANG MILLAN CNP Address: [address] [place] [address] Personnel Name: THANG MILLAN CNP Address: [address] [place], [place] [id number] Personnel Name: THANG MILLAN CNP Address: [address] [place], [place] [id number] Personnel Name: THANG MILLAN CNP Address: [address] [place], [place] [address] Personnel Name: THANG MILLAN CNP Address: [address] [place], [place] [address] Personnel Name: THANG MILLAN CNP Address: [address] [place], [place] [address] Personnel Name: THANG MILLAN CNP Address: [address] [place], [place] [address] Personnel Name: THANG MILLAN CNP Address: Address: [address] [place], [place] [address] Personnel Name: THANG MILLAN CNP Address: Address: [address] [place], [place] [address] Personnel Name: THANG MILLAN CNP Address: Address: [address] [place], [place] [address] Personnel Name: THANG MILLAN CNP Address: Address: [address] [place], [place] [address] Personnel Name: THANG MILLAN CNP Address: Address: [address] [place], [place] [address] Personnel Name: MILLANIVANIA COOPER THANG Address: Address: [address] [place] [address] [place] Personnel Name: MILLAN ALLISON TAHNG Address: Address: [address] [place] [address]- [place] Personnel Name: MILLAN [place] THANG Address: Address: [address] [place] [address]- [place] Personnel Name: MILLAN [place] THANG Address: Address: [address] [place] [address]- [place] Personnel Name: MILLAN ALL[place] THANG Address: Address: [address] [place] [address]- [place] Personnel Name: MILLAN ALL[place] THANG Address: Address: [address] [place] [address]- [place] Personnel Name: MILLAN ALL[place] THANG Address: Address: [address] [place] [address]- [place] Personnel Name: MILLAN ALL[place] THANG Address: Address: [address] [place] [address]- [place] Personnel Name: MILLAN ALL[place] THANG Address: Address: [address] [place] [address]- [place] Personnel Name: MILLAN ALLISON THANG Address: Address: [address] [place] [address]- [place] Personnel Name: MILLAN ALLISON THANG Address: Address: [address] [place] [address]- [place] Personnel Name: MILLAN ALL[place] THANG Address: Address: [address] [place] [address] [place] Personnel Name: MILLAN ALLISON THANG Address: Address: [address] [place] [address] [place] Personnel Name: Luis Carlos Jung MD Address: Address: [facility] [address], [address] [address]- Personnel Name: Luis Carlos Jung MD Address: Address: [facility] [address], [facility] [address] [place] [address]- Personnel Name: Luis Carlos Jung MD Address: Address: [facility] [address], [facility] [address] [place] [address]- Personnel Name: Luis Carlos Jung MD Address: Address: [facility] [address], [facility] [address] [place] [address]- Personnel Name: Luis Carlos Jung MD Address: Address: [facility] [address], [place] [address] Personnel Name: Rashaun PURVIS DO R Address: Address: [address] , [place] [address]- Personnel Name: NONE, XXXX Address: Address: [facility] Personnel Name: LLC, GENERIC Personnel Name: LLC, GENERIC FOR RECORDS PERTAINING TO PATIENTS WHO ARE OR HAVE BEEN ENROLLED IN A CHEMICAL DEPENDENCY/SUBSTANCEABUSE PROGRAM, SOME INFORMATION MAY BE OMITTED. This clinical summary was aggregated from multiple sources. Caution should be exercised in using it in the provision of clinical care. This summary normalizes information from multiple sources, and as a consequence, information in this document may materially change the coding, format and clinical context of patient data. In addition, data may be omitted in some cases. CLINICAL DECISIONS SHOULD BE BASED ON THE PRIMARY CLINICAL RECORDS. [facility] [employer] [facility]. provides no warranty or guarantee of the accuracy or completeness of information in this document.
== END 2023-10-03 10:48 | disposition home or self-care (01) ==
LOC: US 10:47
PROVIDERS: Visit Provider Obstetrics & Gynecology
DX: O26.843 Uterine size-date discrepancy, third trimester (principal); Z3A.28 28 weeks gestation of pregnancy
CPT/HCPCS: 76816

== ENCOUNTER 2023-10-10 14:11 | Observation (INO) | payer OTHER, SELFPAY ==
--- NOTE | 2023-10-10 15:10 | US_ITS ---
[address] [address] Patient Name: DEANDRA MOCTEZUMA MRN: [id number] date: 1995 Sex: F Assigned Patient Location: [facility] Current Patient Location: [facility] Accession/Order Number: [id number] Exam Date: 10/10/2023 15:11 Report Date: 10/10/2023 15:32 At the request of: JOSSE PURVIS Procedure: US OB BPP w non-stress EXAMINATION: US OB BPP w non-stress HISTORY: decreased movement COMPARISON: Ultrasound OB growth 10/03/2023 TECHNIQUE: Ultrasound biophysical profile was performed in the radiology department. BREATHING MOVEMENTS: 2.0 GROSS BODY MOVEMENTS: 2.0 TONE: 2.0 QUALITATIVE AMNIOTIC FLUID VOLUME: 2.0 PRESENTATION: CEPHALIC HEART RATE: 137.8 bpm bpm. AMNIOTIC FLUID VOLUME: 11.7 cm GESTATIONAL AGE: 29 weeks 3 days CONCLUSION: Total biophysical profile score 8.0. Electronically authenticated by: SUSHILA HERRERA Date: 10/10/2023 15:32
== END 2023-10-10 15:45 | disposition home or self-care (01) ==
PROVIDERS: Admitting Provider Obstetrics & Gynecology; Visit Provider Obstetrics & Gynecology
DX: O36.8130 Decreased fetal movements, third trimester, not applicable or unspecified (principal); Z3A.29 29 weeks gestation of pregnancy
CPT/HCPCS: 76818; G0378; G0379

== ENCOUNTER 2023-10-23 14:09 | Observation (INO) | payer OTHER, SELFPAY ==
[2023-10-23 14:24] VITALS: BP 123/74; PULSE 106
[2023-10-23 14:25] VITALS: TEMP 36.3
--- NOTE | 2023-10-23 14:42 | PC.NURSE ---
Pt arrives for decreased movement since last PM. No leaking of fluid, or bleeding. Pt reports tenderness in abdomen and places hands on outer curve of belly. Discussed round ligament pain as continues. States complicated by hypothyroid. Treated with Levothyroxine 125 mcg daily. Pt voices relief FHT's audible. Given water as requested.
== END 2023-10-23 15:50 | disposition home or self-care (01) ==
PROVIDERS: Admitting Provider Obstetrics & Gynecology; Visit Provider Obstetrics & Gynecology
DX: O36.8190 Decreased fetal movements, unspecified trimester, not applicable or unspecified (principal); O99.280 Endocrine, nutritional and metabolic diseases complicating pregnancy, unspecified trimester; E03.9 Hypothyroidism, unspecified; Z3A.00 Weeks of gestation of pregnancy not specified
CPT/HCPCS: 59025; G0378; G0379

== ENCOUNTER 2023-10-30 07:04 | Outpatient (OUT) | payer OTHER, SELFPAY ==
--- NOTE | 2023-10-30 | US_ITS ---
[address] [address] Patient Name: DEANDRA MOCTEZUMA MRN: [id number] date: 1995 Sex: F Assigned Patient Location: [facility] Current Patient Location: Accession/Order Number: [id number] Exam Date: 10/30/2023 08:10 Report Date: 10/30/2023 08:52 At the request of: JOSSE PURVIS Procedure: US OB BPP w non-stress EXAMINATION: US OB BPP w non-stress HISTORY: Maternal thyroid disorder COMPARISON: 10/10/2023 TECHNIQUE: Ultrasound biophysical profile was performed in the radiology department. non-reactive stress testing was performed by nursing staff in the birthing center. FINDINGS: BREATHING MOVEMENTS: 2.0 GROSS BODY MOVEMENTS: 2.0 TONE: 2.0 QUALITATIVE AMNIOTIC FLUID VOLUME: 2.0 PRESENTATION: CEPHALIC HEART RATE: 134.3 bpm H.B./min AMNIOTIC FLUID VOLUME: 15.8 cm cm GESTATIONAL AGE: 32 weeks 1 days CONCLUSION: Total biophysical profile score: 8.0 Electronically authenticated by: MERNA SILVA Date: 10/30/2023 08:52
--- OUTSIDE RECORDS SUMMARY | 2023-10-30 07:08 | XMS_ITS | CCD ---
Author Name Unknown Address [address] [place] [address] Organization [facility] Care Team Providers [facility] Tech Name Role Phone MELISSANKECHI Unavailable Unavaila BAKARI Liriano Attending Unavailable THANG MILLAN Primary Care Unavailable No, Physician Primary Care Provider Unavailerum e NO, PHYSICIAN Primary Care Unavailable REGINE CHOW Admitting Unavailable REGINE CHOW Attending Unavailable Thang Millan Primary Care Provider [phone] Unavailable Primary Care Provider UnavailTHANG Mauro Primary Care Physician [phone] Luis Carlos Jung Primary Care Physician [phone] Rashaun PURVIS Primary Care Physician NONE, XXXX Primary Care Physician [employer], GENERIC Primary Care Physician Unavailab le DO Gopi Rodriguez Attending Unavailable Kristian Guillermo Attending Unavailable Luis [...] Unavailable MD Luis Carlos Jung Consulting Unavailable Fabiana, Luis Carlos Byrd Consulting Unavailable Fabiana, Luis Carlos Byrd Consulting Unavailable Fabiana, Luis Carlos Byrd Consulting Unavailable Fabiana, Luis Carlos Byrd Consulting Unavailable Fabiana, Luis Carlos Byrd Consulting Unavailable Fabiana, Luis Carlos Byrd Consulting Unavailable Fabiana, Luis Carlos Byrd Consulting Unavailable Fabiana, Luis Carlos Byrd Consulting Unavailable Fabiana, Luis Carlos Byrd Consulting Unavailable Spasic, Roverto V. Attending Unavailabl e Spasic, Roverto VPatricia Admitting Unavailabl e Fabiana, Luis Carlos Byrd [...] Byrd Attending Unavailable Laura Noel Attending Unavailable ANGELA, DODIE Attending Unavailable RASHAUN PURVIS Attending Unavailable ANGELA, DODIE Attending Unavailable Allergies Allergy Classification Reported Allergen(s) Allergy Type Date of Onset Reaction(s) Facility (20 sources) amoxicillin; Translations: [AMOXICILLIN] Drug Allergy 7 [facility] (20 sources) penicillin; Translations: [PENICILLIN] Drug Allergy 7 [facility] (3 sources) Penicillins; Translations: [PENICILLINS] Propensity to adverse reactions to drug 0 [place], [place] Medications Current Medications Medication Drug Class(es) [...] day(s), # 15 cap(s), Refills(s) 0, Pharmacy: [facility], 162.6, cm, 05/21/23 20:50:00 EDT, Height/Length Dosing, 75.3, kg, 05/21/23 20:50:00 EDT, Weight Dosing Start Date: 05/21/23 Stop Date: 05/26/23 Status: Ordered Start: 08-18-2022 End: 08-25-2022 take 1 capsule by mouth four times daily Keflex 500 mg Cap 500 mg = 1 cap(s), Oral, QID, X 7 day(s), # 28 cap(s), Refills(s) 0, Pharmacy: [facility] 1986, 162.5, cm, 08/18/22 4:15:00 EDT, Height/Length Dosing, 80, kg, 08/18/22 4:15:00 EDT, Weight Dosing Start Date: 08/18/22 Stop Date: 08/25/22 Status: Ordered Start: 07-17-2022 End: 07-22-2022 take 1 capsule by mouth every twelve hours Keflex 500 mg Cap 500 mg = 1 cap(s), Oral, q12hr, X 5 day(s), # 10 cap(s), Refills(s) 0, Pharmacy: [facility] 1986, 162.5, cm, 07/17/22 9:09:00 EDT, Height/Length Dosing, 80, kg, 07/17/22 9:09:00 EDT, Weight Dosing Start Date: 07/17/22 Stop Date: 07/22/22 Status: Ordered Start: 04-02-2022 End: 04-09-2022 take 1 capsule by mouth four times daily Keflex 500 mg Cap 500 mg = 1 cap(s), Oral, QID, X 7 day(s), # 28 cap(s), Refills(s) 0, Pharmacy: [facility], 160, cm, 04/02/22 6:28:00 EDT, Height/Length Dosing, [...] Daily, # 14 tab(s), Refills(s) 0, Pharmacy: [facility] 1986, 162.6, cm, 05/21/23 20:50:00 EDT, Height/Length Dosing, 75.3, kg, 05/21/23 20:50:00 EDT, Weight Dosing Start Date: 05/21/23 Status: Ordered ibuprofen 600 mg oral tablet (11 sources) Nonsteroidal Anti-inflammatory Drug Start: 09-27-2022 take 1 tablet by mouth every six hours ibuprofen 600 mg Tab 600 mg = 1 tab(s), Oral, q6hr, # 15 tab(s), Refills(s) 0, Pharmacy: [facility], 162.5, cm, 09/24/22 21:51:00 EST, [...] dizziness, # 15 tab(s), Refills(s) 0, Pharmacy: [facility] [address], 163, cm, 11/30/21 7:18:00 EST, [...] Nausea/Vomiting, # 12 tab(s), Refills(s) 0, Pharmacy: [facility], 163, cm, 09/05/22 20:14:00 EST, [...] day(s), # 6 tab(s), Refills(s) 0, Pharmacy: [facility], 163, cm, 06/28/23 10:39:00 EDT, Height/Length Dosing, [...] q8hr, # 12 tab(s), Refills(s) 0, Pharmacy: [facility], 162.6, cm, 05/21/23 20:50:00 EDT, [...] Translations: [Antepartum hemorrhage, unspecified, unspecified trimester] Onset: 08-07-2023 Episodic Meningitis (except that caused by tuberculosis [...] Results Test Name Value Interpretation Reference Range Facility T3 Totalon 08-24-2023 T3 [Mass/Vol] 146 ng/dL Invalid Interpretation Code [id number] [facility] Comment on above: Result Comment: Perf ormed at: [facility] [address] [id number] PhD Caroline East Performed By: #### 2 800435, 41015930, 4349930, 59751137, 0378141, 0256104, 24028477 ####[facility] [address] [place] [address] Auto Diffon 08-23-2023 Basophils/100 WBC (Bld) 0.9 % Normal 0.0-2.0 [facility] Comment on above: Order Comment: Order Added by Discern Expert. Performed By: #### 2 853042, 04195015, 0526774, 79345856, 2077765, 5058714, 70423374 ####[facility] [address] [place] [address] Basophils/Leukocytes Auto (Bld) [Pure # fraction] 0.1 E9/L Normal 0.0-0.2 [facility] Comment on above: Order Comment: Order Added by Discern Expert. Performed By: #### 2 674158, 29694993, 3632739, 45926951, 6787852, 4442769, 48484532 ####[place] [address] [address] Eosinophils/100 WBC (Bld) 1.3 % Normal 0.0-8.0 [facility] Comment on above: Order Comment: Order Added by Discern Expert. Performed By: #### 2 497878, 76821492, 3767394, 41421275, 9837223, 9716067, 83477797 ####[address] [address] Eosinophils/Leukocytes Auto (Bld) [Pure # fraction] 0.1 E9/L Normal 0.0-0.5 [facility] Comment on above: Order Comment: Order Added by Discern Expert. Performed By: #### 2 779883, 36796959, 9920196, 26797019, 5864634, 2930507, 57179797 ####[address] [address] Lymphocytes/100 WBC (Bld) 17.7 % Normal 14.0-50.0 [facility] Comment on above: Order Comment: Order Added by Discern Expert. Performed By: #### 2 621530, 27812552, 7068652, 08122508, 0329219, 9693531, 51277291 ####[address] [address] Lymphocytes/Leukocytes Auto (Bld) [Pure # fraction] 1.4 E9/L Normal 1.0-4.0 [facility] Comment on above: Order Comment: Order Added by Discern Expert. Performed By: #### 2 222185, 80227048, 6275618, 09773812, 6464110, 7483411, 59587319 ####[address] [address] Monocytes/100 WBC (Bld) 5.1 % Normal 4.0-14.0 [facility] Comment on above: Order Comment: Order Added by Gisselle Expert. Performed By: #### 2 970958, 80174770, 9813115, 09625727, 9604004, 9054388, 73571676 ####[address] [place] [address] Monocytes/Leukocytes Auto (Bld) [Pure # fraction] 0.4 E9/L Normal 0.2-1.0 [facility] Comment on above: Order Comment: Order Added by Discern Expert. Performed By: #### 2 640333, 43459988, 2454698, 65546050, 2547050, 7976215, 02438455 ####[address] [place] [address] Neutrophils/100 WBC (Bld) 75.0 % Normal 36.0-75.0 [facility] Comment on above: Order Comment: Order Added by Discern Expert. Performed By: #### 2 950545, 51369509, 2506298, 86291973, 8204150, 3735240, 25924758 ####[address] [place] [address] Neutrophils/Leukocytes Auto (Bld) [Pure # fraction] 5.8 E9/L Normal 2.0-7.5 [facility] Comment on above: Order Comment: Order Added by Discern Expert. Performed By: #### 2 014170, 55071480, 9558471, 21727576, 3053475, 6570868, 85767519 ####[address] [place] [address] CBC w/ Auto Diffon 3 Erythrocyte distribution width (RBC) [Ratio] 14.5 % High 10.9-14.2 [facility] Comment on above: Performed By: #### 2 114451, 82380374, 4308232, 18340839, 8421969, 1031610, 05166366 ####[address] [place] [address] Hematocrit (Bld) [Volume fraction] 36.4 % Normal 34.0-46.0 [facility] Comment on above: Performed By: #### 2 416161, 99473786, 2013560, 18645891, 2127421, 4756825, 11990765 ####[address] [place] [address] Hemoglobin (Bld) [Mass/Vol] 12.1 g/dL Normal 12.0-16.0 [facility] Comment on above: Performed By: #### 2 207959, 52408178, 1622469, 31850118, 0854193, 2357874, 54160406 ####[facility] [address] [place] [address] MCH (RBC) [Entitic mass] 30.2 pg Normal 27.0-34.0 [facility] Comment on above: Performed By: #### 2 206344, 89866555, 6073286, 00252860, 8794119, 2314989, 86747301 ####[address] [address] MCHC (RBC) [Mass/Vol] 33.3 g/dL Normal 31.4-36.0 [facility] Comment on above: Performed By: #### 2 969258, 40928223, 8103228, 52770863, 6840865, 9710868, 63760497 ####[address] [place] [address] MCV (RBC) [Entitic vol] 90.8 fL Normal 80.0-100.0 [facility] Comment on above: Performed By: #### 2 176176, 34725156, 1702490, 81599323, 0155810, 3012671, 27617539 ####[address] [address] Platelet mean volume (Bld) [Entitic vol] 9.7 fL Normal 6.4-10.8 [facility] Comment on above: Performed By: #### 2 012059, 92123939, 7372055, 16030822, 6392487, 3739476, 01069775 ####[address] [address] Platelets (Bld) [#/Vol] 270.0 E9/L Normal 150.0-500.0 [facility] Comment on above: Performed By: #### 2 019851, 95922793, 3739265, 31341646, 1877760, 8067654, 42300479 ####[facility] [address] [place] [address] RBC (Bld) [#/Vol] 4.0 E12/L Low 4.3-5.9 [facility] Comment on above: Performed By: #### 2 240987, 57649232, 1926668, 47858407, 6960011, 5349888, 16168559 ####[facility] [address] [place] [address] WBC corrected for nucl RBC Auto (Bld) [#/Vol] 7.7 E9/L Normal 4.0-11.0 [facility] Comment on above: Performed By: #### 2 277073, 48529117, 9027711, 93058917, 7460190, 0470146, 39601669 ####[facility] [address] [place] [address] CHEMISTRYOrdered By: SYSTEM SYSTEM on 08-23-2023 Albumin [...] Bilirubin [Mass/Vol] 0.5 mg/dL Normal 0.0 - 1 .1 mg/dL [facility] Calcium [Mass/Vol] 8.8 mg/dL [...] 0.6 mg/dL Normal 0.5 - 1.3 mg/dL [facility] GFR/1.73 sq M.predicted among non-blacks MDRD (S/P/Bld) [Vol rate/Area] 125 mL/min/1.73 m2 Normal >=59mL/min/ 1.73 m2 [facility] Comment on above: Interpretive Data: C hronic kidney disease could be indicated at eGFR's of less than 60 mL/min/1.73m2. Kidney failure is indicated at less than 15 mL/min/1.73m2. Globulin (S) [Mass/Vol] 3.8 g/dL Normal 1.4 - 4.0 gm/dL [facility] Glucose [Mass/Vol] 88 mg/dL Normal 55 - 199 mg/dL [facility] Comment on above: Interpretive Data: I f this glucose result represents a fasting glucose, interpretation should refer to the following reference range: 55-99 mg/dL Potassium [Moles/Vol] 3.5 mmol/L Normal 3.5 - 5.3 mmol/L [facility] Protein [Mass/Vol] 6.6 g/dL Normal 6.0 - 7.8 gm/dL [facility] Sodium [Moles/Vol] 138 mmol/L Normal 135 - 145 mmol/L [facility] T4 [Mass/Vol] 11.8 ug/dL High 4.6 - 9.1 mcg/dL [facility] Triglyceride [Mass/Vol] 164 mg/dL High <=149mg/dL [facility] TSH Qn 3.61 m[IU]/L Normal 0.34 - 5.60 mcIU/mL [facility] Urea nitrogen [Mass/Vol] 7 mg/dL Normal 5 - 21 mg/dL [facility] Urea nitrogen/Creatinine [Mass ratio] 12 mg/mg Normal 10 - 20 [facility] CMPon 08-23-2023 Albumin [Mass/Vol] 2.8 g/dL Low 3.3-5.0 [facility] Comment on above: Performed By: #### 2 863716, 08148039, 7290071, 85978595, 7616946, 0071914, 99754505 ####[facility] [address] [place] [address] Albumin/Globulin (S) [Mass conc ratio] 0.7 Low 1.1-2.2 [facility] Comment on above: Performed By: #### 2 021745, 06390015, 5435723, 05115556, 5286479, 0439865, 09952827 ####[facility] [address] [place] [address] ALP [Catalytic activity/Vol] 49 Int._Unit/L Normal 21-98 [facility] Comment on above: Performed By: #### 2 939506, 82103780, 8541545, 03887479, 9376886, 9969185, 07622412 ####[facility] [address] [place] [address] ALT No additional P-5'-P [Catalytic activity/Vol] 15 Int._Unit/L Normal 6-46 [facility] Comment on above: Performed By: #### 2 607899, 78798820, 6884990, 06210543, 1333957, 8682534, 63451984 ####[facility] [address] [place] [address] Anion gap [Moles/Vol] 12 mmol/L Normal 6-16 [facility] Comment on above: Performed By: #### 2 814514, 71404460, 6839003, 72239088, 6714477, 5103763, 97950466 ####[facility] [address] [place] [address] AST [Catalytic activity/Vol] 17 Int._Unit/L Normal 5-43 [facility] Comment on above: Performed By: #### 2 002497, 58828255, 7194193, 82970420, 7975512, 6514655, 20951650 ####[facility] [address] [place] [address] Bilirubin [Mass/Vol] 0.5 mg/dL Normal 0.0-1.1 [facility] Comment on above: Performed By: #### 2 205488, 26511999, 6377426, 94055986, 7622454, 7519384, 20000568 ####[facility] [address] [place] [address] Calcium [Mass/Vol] 8.8 mg/dL Low 8.9-11.1 [facility] Comment on above: Performed By: #### 2 524608, 80593718, 2227384, 36289215, 7674881, 5130603, 39848496 ####[facility] [address] [place] [address] Chloride [Moles/Vol] 108 mmol/L Normal 101-111 [facility] Comment on above: Performed By: #### 2 067679, 91492907, 7286132, 46259120, 0212660, 4383673, 95105509 ####[facility] [address] [place] [address] CO2 [Moles/Vol] 22 mmol/L Normal 21-31 [facility] Comment on above: Performed By: #### 2 682864, 09740263, 2809041, 56619312, 2781790, 8092719, 85593840 ####[facility] [address] [place] [address] Creatinine [Mass/Vol] 0.6 mg/dL Normal 0.5-1.3 [facility] Comment on above: Performed By: #### 2 579374, 54738954, 0247456, 48981684, 2588381, 4492322, 45366518 ####[facility] [address] [place] [address] Globulin (S) [Mass/Vol] 3.8 g/dL Normal 1.4-4.0 [facility] Comment on above: Performed By: #### 2 449852, 02047528, 0740525, 42081924, 7651726, 6504076, 04760474 ####[facility] [address] [place] [address] Glucose [Mass/Vol] 88 mg/dL Normal 55-199 [facility] Comment on above: Result Comment: If t his glucose result represents a fasting glucose, interpretation should refer to the following reference range: 55-99 mg/dL Performed By: #### 2 412404, 45243613, 6480821, 48784654, 8820447, 1341367, 75932707 ####[facility] [address] [place] [address] Potassium [Moles/Vol] 3.5 mmol/L Normal 3.5-5.3 [facility] Comment on above: Performed By: #### 2 053806, 50318099, 3525468, 13784630, 6698379, 0153044, 09714410 ####[facility] [address] [place] [address] Protein [Mass/Vol] 6.6 g/dL Normal 6.0-7.8 [facility] Comment on above: Performed By: #### 2 295844, 20257933, 7030271, 82307322, 1889593, 2625497, 78866017 ####[facility] [address] [place] [address] Sodium [Moles/Vol] 138 mmol/L Normal 135-145 [facility] Comment on above: Performed By: #### 2 103642, 95297476, 0478872, 52305286, 5765324, 2323493, 96356644 ####[facility] [address] [place] [address] Urea nitrogen [Mass/Vol] 7 mg/dL Normal 5-21 [facility] Comment on above: Performed By: #### 2 623954, 84210706, 0468539, 04213035, 4688450, 6732680, 37917851 ####[facility] [address] [place] [address] Urea nitrogen/Creatinine [Mass ratio] 12 No Units Normal 10-20 [facility] Comment on above: Performed By: #### 2 801306, 50144551, 6009709, 38238345, 8742048, 4534490, 32632136 ####[facility] [address] [place] [address] HEMATOLOGYOrdered By: SYSTEM SYSTEM on 08-23-2023 Basophils/100 WBC (Bld) 0.9 % Normal 0.0 - 2.0 % [facility] HemeAutoSS Basophils/Leukocytes Auto (Bld) [Pure # fraction] 0.1 E9/L Normal 0.0 - 0.2 E9/L [facility] HemeAutoSS Eosinophils/100 WBC (Bld) 1.3 % Normal 0.0 - 8.0 % [facility] HemeAutoSS Eosinophils/Leukocytes Auto (Bld) [Pure # fraction] 0.1 E9/L Normal 0.0 - 0.5 E9/L [facility]eAutoSS Lymphocytes/100 WBC (Bld) 17.7 % Normal 14.0 - 50.0 % [facility]eAutoSS Lymphocytes/Leukocytes Auto (Bld) [Pure # fraction] 1.4 E9/L Normal 1.0 - 4.0 E9/L [facility] HemeAutoSS Monocytes/100 WBC (Bld) 5.1 % Normal 4.0 - 14.0 % [facility]eAutoSS Monocytes/Leukocytes Auto (Bld) [Pure # fraction] 0.4 E9/L Normal 0.2 - 1.0 E9/L [facility]eAutoSS Neutrophils/100 WBC (Bld) 75.0 % Normal 36.0 - 75.0 % [facility]eAutoSS Neutrophils/Leukocytes Auto (Bld) [Pure # fraction] 5.8 E9/L Normal 2.0 - 7.5 E9/L [facility] HemeAutoSS HEMATOLOGYOrdered By: An Lassiter on 08-23-2023 Erythrocyte distribution width (RBC) [Ratio] 14.5 % High 10.9 - 14.2 % [facility] Hematocrit (Bld) [Volume fraction] 36.4 % Normal 34.0 - 46.0 % [facility] Hemoglobin (Bld) [Mass/Vol] 12.1 g/dL Normal 12.0 - 16.0 gm/dL [facility] MCH (RBC) [Entitic mass] 30.2 pg Normal 27.0 - 34.0 pg [facility] MCHC (RBC) [Mass/Vol] 33.3 g/dL Normal 31.4 - 36.0 gm/dL [facility] MCV (RBC) [Entitic vol] 90.8 fL Normal 80.0 - 100.0 fL [facility] Platelet mean volume (Bld) [Entitic vol] 9.7 fL Normal 6.4 - 10.8 fL [facility] Platelets (Bld) [#/Vol] 270.0 E9/L Normal 150.0 - 500.0 E9/L [facility] RBC (Bld) [#/Vol] 4.0 E12/L Low 4.3 - 5.9 E12/L [facility] WBC corrected for nucl RBC Auto (Bld) [#/Vol] 7.7 E9/L Normal 4.0 - 11.0 E9/L [facility] Lipid Panelon 08-23-2023 Cholesterol [Mass/Vol] 238 mg/dL High 120-200 [facility] Comment on above: Performed By: #### 2 405770, 50926026, 7545172, 80712145, 2582957, 4333591, 26988806 ####[facility] [address] [place] [address] Cholesterol in HDL [Mass/Vol] 64 mg/dL Invalid Interpretation Code [facility] Comment on above: Result Comment: HDL > or equal to 60 mg/dL: Low cardiovascular riskHDL < 40 mg/dL : High cardiovascular risk Performed By: #### 2 498499, 15073839, 3677012, 68995427, 2080896, 3035274, 21429111 ####[facility] [address] [place] [address] Cholesterol in LDL [Mass/Vol] 146 mg/dL High <=129 [facility] Comment on above: Performed By: #### 2 956036, 93519304, 5386129, 46367112, 0778852, 5267996, 96883418 ####[facility] [address] [place] [address] Cholesterol in VLDL [Mass/Vol] 33 mg/dL Normal 7-40 [facility] Comment on above: Performed By: #### 2 265017, 20006869, 6835531, 43410763, 4332458, 7484527, 78887260 ####[facility] [address] [place] [address] Triglyceride [Mass/Vol] 164 mg/dL High <=149 [facility] Comment on above: Performed By: #### 2 479214, 56113279, 4167893, 20790309, 2868782, 4281401, 17774327 ####[facility] [address] [place] [address] Physician Orderon 08-23-2023 Physician Order [id number]#1.00TIFF Normal [facility] T4 & TSHon 08-23-2023 T4 [Mass/Vol] 11.8 microgram/dL High 4.6-9.1 [facility] Comment on above: Performed By: #### 2 552809, 05448737, 9170448, 44263069, 8257000, 8638200, 79144969 ####[facility] [address] [place] [address] TSH Qn 3.61 m[IU]/L Normal 0.34-5.60 [facility] Comment on above: Performed By: #### 2 838175, 11754553, 5529811, 76838044, 2049322, 3234118, 30405844 ####[facility] [address] [place] [address] eGFRon 08-23-2023 GFR/1.73 sq M.predicted among non-blacks MDRD (S/P/Bld) [Vol rate/Area] 125 mL/min/1.73 m2 Normal >=59 [facility] Comment on above: Order Comment: Order added by Discern Expert. Result Comment: Crawler Crane Operator lucy kidney disease could be indicated at eGFR's of less than 60 mL/min/1.73m2. Kidney failure is indicated at less than 15 mL/min/1.73m2. Performed By: #### 2 995458, 86981621, 4667190, 77017427, 4207333, 6971013, 13434391 ####[facility] [address] [place] [address] Nursing Assessmenton 023 Nursing Assessment [id number]#1.00TIFF [facility] Consent for Treatmenton Consent for Treatment [id number]#1.00TIFF [facility] Discharge Instructionson Discharge Instructions [id number]#1.00TIFF Normal [facility] Inpatient Clinical Summaryon 08-18-2023 Inpatient Clinical Summary Normal [facility] Inpatient Patient Summaryon 08-18-2023 Inpatient Patient Summary Normal [facility] Insurance Correspondenceon 10-18-2022 Insurance Correspondence [id number]#1.00TIFF [facility] Vaccinationson 08-18-2023 Vaccinations [id number]#1.00TIFF [facility] C Urineon 07-27-2023 Bacteria identified Cx Nom (U) Normal [facility] Comment on above: Performed By: #### 2 105975, 91872743 ####[address] [address] ABO/Rhon 07-25-2023 ABO/Rh Positive Invalid Interpretation Code [facility] Comment on above: Performed By: #### 2 443074 ####[address] [address] Auto Diffon 07-25-2023 Basophils/100 WBC (Bld) 1.1 % Normal 0.0-2.0 [facility] Comment on above: Order Comment: Order Added by Discern Expert. Performed By: #### 1 9149647, 9919215, 4979082, 5912741, 9809857, 7188743 ####[address] [address] Basophils/Leukocytes Auto (Bld) [Pure # fraction] 0.1 E9/L Normal 0.0-0.2 [facility] Comment on above: Order Comment: Order Added by Discern Expert. Performed By: #### 1 4340589, 2772087, 2864102, 9095859, 4711709, 7063141 ####[address] [address] Eosinophils/100 WBC (Bld) 1.2 % Normal 0.0-8.0 [facility] Comment on above: Order Comment: Order Added by Discern Expert. Performed By: #### 1 5756968, 4498985, 8845118, 3724013, 2607504, 9344268 ####[address] [address] Eosinophils/Leukocytes Auto (Bld) [Pure # fraction] 0.1 E9/L Normal 0.0-0.5 [facility] Comment on above: Order Comment: Order Added by Discern Expert. Performed By: #### 1 5480285, 0055176, 3788821, 4893572, 9775369, 8588948 ####[address] [address] Lymphocytes/100 WBC (Bld) 23.7 % Normal 14.0-50.0 [facility] Comment on above: Order Comment: Order Added by Discern Expert. Performed By: #### 1 9589169, 8344697, 4608797, 6179914, 9777622, 6453132 ####[address] [place] [address] Lymphocytes/Leukocytes Auto (Bld) [Pure # fraction] 1.4 E9/L Normal 1.0-4.0 [facility] Comment on above: Order Comment: Order Added by Discern Expert. Performed By: #### 1 9181556, 5621445, 9944053, 5950304, 4902081, 9805812 ####[address] [place] [address] Monocytes/100 WBC (Bld) 6.7 % Normal 4.0-14.0 [facility] Comment on above: Order Comment: Order Added by Gisselle Expert. Performed By: #### 1 6862336, 0958172, 1435621, 5753782, 5918321, 1434637 ####[address] [address] Monocytes/Leukocytes Auto (Bld) [Pure # fraction] 0.4 E9/L Normal 0.2-1.0 [facility] Comment on above: Order Comment: Order Added by Gisselle Expert. Performed By: #### 1 0928979, 1157473, 0712542, 6061009, 8394851, 4043978 ####[address] [address] Neutrophils/100 WBC (Bld) 67.3 % Normal 36.0-75.0 [facility] [facility] Comment on above: Order Comment: Order Added by Gisselle Expert. Performed By: #### 1 3418394, 5996443, 4996502, 5848460, 2517313, 9119050 ####[address] [place] [address] Neutrophils/Leukocytes Auto (Bld) [Pure # fraction] 4.0 E9/L Normal 2.0-7.5 [facility] Comment on above: Order Comment: Order Added by Discern Expert. Performed By: #### 1 3310845, 8716286, 0773887, 2408961, 0278754, 6868884 ####[facility] [address] [place] [address] BLOOD BANKOrdered By: An Lassiter on 07-25-2023 ABO/Rh Interp Positive Invalid Interpretation Code [facility] BB Subsection BMPon 07-25-2023 Creatinine [Mass/Vol] 0.6 mg/dL Normal 0.5-1.3 [facility] Comment on above: Performed By: #### 1 8574313, 2092970, 1823945, 0242295, 6210981, 8644240 ####[facility] [address] [place] [address] Urea nitrogen [Mass/Vol] 6 mg/dL Normal 5-21 [facility] Comment on above: Performed By: #### 1 6792377, 3328824, 8108526, 3708579, 5329956, 3519355 ####[facility] [address] [place] [address] Urea nitrogen/Creatinine [Mass ratio] 10 No Units Normal 10-20 [facility] Comment on above: Performed By: #### 1 3211898, 3540069, 4297815, 1370497, 3617506, 4550437 ####[facility] [address] [place] [address] Anion gap [Moles/Vol] 2 mmol/L Low 6-16 [facility] Comment on above: Performed By: #### 1 8660182, 7507752, 2609924, 4607090, 7058609, 4728920 ####[facility] [address] [place] [address] Calcium [Mass/Vol] 8.6 mg/dL Low 8.9-11.1 [facility] Comment on above: Performed By: #### 1 9672974, 4350310, 0742175, 0856605, 0758422, 4125811 ####[facility] [address] [place] [address] Chloride [Moles/Vol] 107 mmol/L Normal 101-111 [facility] Comment on above: Performed By: #### 1 7090658, 4626626, 0286744, 1488615, 3698569, 3566467 ####[facility] [address] [place] [address] CO2 [Moles/Vol] 27 mmol/L Normal 21-31 [facility] Comment on above: Performed By: #### 1 9136157, 4072474, 0655474, 0122292, 2169372, 9990556 ####[facility] [address] [place] [address] Glucose [Mass/Vol] 73 mg/dL Normal 55-199 [facility] Comment on above: Result Comment: If t his glucose result represents a fasting glucose, interpretation should refer to the following reference range: 55-99 mg/dL Performed By: #### 1 3447579, 8311487, 8137431, 7523892, 3508814, 5528555 ####[facility] [address] [place] [address] Potassium [Moles/Vol] 3.9 mmol/L Normal 3.5-5.3 [facility] Comment on above: Performed By: #### 1 8426943, 8497228, 7535691, 0499815, 7507892, 5354564 ####[facility] [address] [place] [address] Sodium [Moles/Vol] 132 mmol/L Low 135-145 [facility] Comment on above: Performed By: #### 1 8008570, 8642168, 8284754, 9638537, 5824272, 9202048 ####[facility] [address] [place] [address] BhCG Quanton 07-25-2023 [place] [address] m[IU]/mL High 1-3 F [facility] Comment on above: Result Comment: GEST ATIONAL AGE HCG RANGE (mIU/mL) NON- <1-3 0.2-1 WEEKS 5-50 1-2 WEEKS 50-500 2-3 WEEKS 100-5,000 3-4 WEEKS 500-10,000 4-5 WEEKS 1,000-50,000 5-6 WEEKS 10,000-100,000 6-8 WEEKS 15,000-200,000 8-12 WEEKS 10,000-100,000 Performed By: #### 2 041431 ####[facility] [address] [place] [address] CBC w/ Auto Diffon 3 Erythrocyte distribution width (RBC) [Ratio] 14.0 % Normal 10.9-14.2 [facility] Comment on above: Performed By: #### 1 4678740, 7406479, 8178607, 5127187, 9137905, 6344202 ####[address] [place] [address] Hematocrit (Bld) [Volume fraction] 37.1 % Normal 34.0-46.0 [facility] Comment on above: Performed By: #### 1 1280444, 3670491, 7107017, 9833654, 6076664, 0435000 ####[address] [place] [address] Hemoglobin (Bld) [Mass/Vol] 12.5 g/dL Normal 12.0-16.0 [facility] Comment on above: Performed By: #### 1 7508190, 3885956, 9727234, 3261153, 4318499, 8206900 ####[address] [address] MCH (RBC) [Entitic mass] 29.9 pg Normal 27.0-34.0 [facility] Comment on above: Performed By: #### 1 0637593, 8351755, 1541773, 2565067, 4417031, 3379632 ####[address] [place] [address] MCHC (RBC) [Mass/Vol] 33.8 g/dL Normal 31.4-36.0 [facility] Comment on above: Performed By: #### 1 1253946, 2089753, 7813431, 1097342, 9288060, 4142912 ####[facility] [address] [place] [address] MCV (RBC) [Entitic vol] 88.4 fL Normal 80.0-100.0 [facility] Comment on above: Performed By: #### 1 0784611, 8877293, 0899661, 7987696, 4452559, 9027964 ####[address] [place] [address] Platelet mean volume (Bld) [Entitic vol] 7.9 fL Normal 6.4-10.8 [facility] Comment on above: Performed By: #### 1 4445248, 7013871, 8068581, 8177012, 4856677, 3685279 ####[address] [address] Platelets (Bld) [#/Vol] 261.0 E9/L Normal 150.0-500.0 [facility] Comment on above: Performed By: #### 1 3424404, 4239690, 1749193, 1685072, 6405721, 4270870 ####[address] [address] RBC (Bld) [#/Vol] 4.2 E12/L Low 4.3-5.9 [facility] Comment on above: Performed By: #### 1 2782818, 4501312, 3736387, 7241702, 6331123, 2632210 ####[address] [address] WBC corrected for nucl RBC Auto (Bld) [#/Vol] 5.9 E9/L Normal 4.0-11.0 [facility] Comment on above: Performed By: #### 1 2770517, 5967493, 9192577, 2662799, 9855063, 9186384 ####[address] [place] [address] CHEMISTRYOrdered By: SYSTEM SYSTEM on 07-25-2023 Albumin [...] Bilirubin [Mass/Vol] 0.4 mg/dL Normal 0.0 - 1 .1 mg/dL [facility] Bilirubin.direct [Mass/Vol] mg/dL Normal 0.1 - 0.4 mg/dL [facility] Bilirubin.indirect [Mass or moles/Vol] Unable to Calculate mg/dL Invalid Interpretation Code 0.1 - 0.9 mg/dL [facility] Calcium [Mass/Vol] 8.6 mg/dL Low 8.9 - 11. 1 mg/dL [facility] Chloride [Moles/Vol] 107 mmol/L Normal 101 - 1 11 mmol/L [facility] CO2 [Moles/Vol] 27 mmol/L Normal 21 - 31 mmol/L [facility] Creatinine [Mass/Vol] 0.6 mg/dL Normal 0.5 - 1.3 mg/dL [facility] GFR/1.73 sq M.predicted among non-blacks MDRD (S/P/Bld) [Vol rate/Area] 125 mL/min/1.73 m2 Normal >=59mL/min/ 1.73 m2 [facility] Comment on above: Interpretive Data: C hronic kidney disease could be indicated at eGFR's of less than 60 mL/min/1.73m2. Kidney failure is indicated at less than 15 mL/min/1.73m2. Globulin (S) [Mass/Vol] 3.6 g/dL Normal 1.4 - 4.0 gm/dL [facility] Glucose [Mass/Vol] 73 mg/dL Normal 55 - 199 mg/dL [facility] Comment on above: Interpretive Data: I f this glucose result represents a fasting glucose, interpretation should refer to the following reference range: 55-99 mg/[place] [address] m[IU]/mL High 1 - 3 mIU/mL [facility] Comment on above: Interpretive Data: G ESTATIONAL AGE HCG RANGE (mIU/mL) NON- <1-3 0.2-1 WEEKS 5-50 1-2 WEEKS 50-500 2-3 WEEKS 100-5,000 3-4 WEEKS 500-10,000 4-5 WEEKS 1,000-50,000 5-6 WEEKS 10,000-100,000 6-8 WEEKS 15,000-200,000 8-12 WEEKS 10,000-100,000 Lipase [Catalytic activity/Vol] 28 U/L Normal 13 - 58 unit/L [facility] Potassium [Moles/Vol] 3.9 mmol/L Normal 3.5 - 5.3 mmol/L [facility] Protein [Mass/Vol] 6.7 g/dL Normal 6.0 - 7.8 gm/dL [facility] Sodium [Moles/Vol] 132 mmol/L Low 135 - 145 mmol/L [facility] Urea nitrogen [Mass/Vol] 6 mg/dL Normal 5 - 21 mg/dL [facility] Urea nitrogen/Creatinine [Mass ratio] 10 mg/mg Normal 10 - 20 [facility] Consent for Treatmenton 07-15 Consent for Treatment [id number] Normal [facility] Discharge Instructionson Discharge Instructions [id number] Normal [facility] ED Clinical Summaryon 2022 ED Clinical Summary Normal [facility] ED Note-Physicianon 07-25-20 ED Note-Physician Normal [facility] Comment on above: Result Comment: Elec tronically Signed By: Jorge Velarde PA-C\.br\Date and Time Signed: 07/25/23 10:02 EDT\.br\Electronically Co-Signed By: Kristian Guillermo DO\Date and Time Co-Signed: 07/25/23 20:25 EDT ED Patient Education Noteon 07-25-2023 ED Patient Education Note Normal [facility] ED Patient Summaryon 023 ED Patient Summary Normal [facility] HEMATOLOGYOrdered By: SYSTEM SYSTEM on 07-25-2023 Basophils/100 WBC (Bld) 1.1 % Normal 0.0 - 2.0 % [facility] Basophils/Leukocytes Auto (Bld) [Pure # fraction] 0.1 E9/L Normal 0.0 - 0.2 E9/L [facility] Eosinophils/100 WBC (Bld) 1.2 % Normal 0.0 - 8.0 % [facility]eAuto[facility] Eosinophils/Leukocytes Auto (Bld) [Pure # fraction] 0.1 E9/L Normal 0.0 - 0.5 E9/L [facility] Lymphocytes/100 WBC (Bld) 23.7 % Normal 14.0 - 50.0 % [facility]eAuto[facility] Lymphocytes/Leukocytes Auto (Bld) [Pure # fraction] 1.4 E9/L Normal 1.0 - 4.0 E9/L [facility]eAutoSS Monocytes/100 WBC (Bld) 6.7 % Normal 4.0 - 14.0 % [facility]eAuto[facility] Monocytes/Leukocytes Auto (Bld) [Pure # fraction] 0.4 E9/L Normal 0.2 - 1.0 E9/L [facility] Neutrophils/100 WBC (Bld) 67.3 % Normal 36.0 - 75.0 % [facility]eAuto[facility] Neutrophils/Leukocytes Auto (Bld) [Pure # fraction] 4.0 E9/L Normal 2.0 - 7.5 E9/L [facility] HEMATOLOGYOrdered By: Luis Miguel Posadas on 07-25-2023 Erythrocyte distribution width (RBC) [Ratio] 14.0 % Normal 10.9 - 14.2 % [facility] Hematocrit (Bld) [Volume fraction] 37.1 % Normal 34.0 - 46.0 % [facility]eAuto[facility] Hemoglobin (Bld) [Mass/Vol] 12.5 g/dL Normal 12.0 - 16.0 gm/dL [facility]eAuto[facility] MCH (RBC) [Entitic mass] 29.9 pg Normal 27.0 - 34.0 pg [facility]eAuto[facility] MCHC (RBC) [Mass/Vol] 33.8 g/dL Normal 31.4 - 36.0 gm/dL [facility]eAuto[facility] MCV (RBC) [Entitic vol] 88.4 fL Normal 80.0 - 100.0 fL [facility]eAuto[facility] Platelet mean volume (Bld) [Entitic vol] 7.9 fL Normal 6.4 - 10.8 fL [facility] Platelets (Bld) [#/Vol] 261.0 E9/L Normal 150.0 - 500.0 E9/L [facility] RBC (Bld) [#/Vol] 4.2 E12/L Low 4.3 - 5.9 E12/L [facility] WBC corrected for nucl RBC Auto (Bld) [#/Vol] 5.9 E9/L Normal 4.0 - 11.0 E9/L [facility] Hep Func Panelon 07-25-2023 Bilirubin.indirect [Mass or moles/Vol] UTC Abnormal 0.1-0.9 [facility] Comment on above: Result Comment: Resu lt verified by Discern Rule. Performed result UTC (Unable to Calculate) was sent as an Alpha code due the inability to calculate a valid numeric value. Performed By: #### 1 3195056, 5811091, 6155776, 1948911, 0297916, 2638567 ####[facility] [address] [place] [address] Albumin [Mass/Vol] 3.1 g/dL Low 3.3-5.0 [facility] Comment on above: Performed By: #### 1 0632497, 2261271, 2349099, 3430301, 5705077, 5419381 ####[facility] [address] [place] [address] Albumin/Globulin (S) [Mass conc ratio] 0.9 Low 1.1-2.2 [facility] Comment on above: Performed By: #### 1 6893981, 1110432, 4617914, 2451761, 4380890, 8403897 ####[facility] [address] [place] [address] ALP [Catalytic activity/Vol] 35 Int._Unit/L Normal 21-98 [facility] Comment on above: Performed By: #### 1 7735570, 7493390, 7629576, 4236207, 6522173, 7502639 ####[address] [place] [address] ALT No additional P-5'-P [Catalytic activity/Vol] 10 Int._Unit/L Normal 6-46 [facility] Comment on above: Performed By: #### 1 0632133, 9594460, 7062325, 8803581, 6487819, 7212423 ####[address] [place] [address] AST [Catalytic activity/Vol] 18 Int._Unit/L Normal 5-43 [facility] Comment on above: Performed By: #### 1 2128129, 6526521, 7600411, 8172020, 0315962, 1229199 ####[address] [place] [address] Bilirubin [Mass/Vol] 0.4 mg/dL Normal 0.0-1.1 [facility] Comment on above: Performed By: #### 1 5965185, 0136345, 2784164, 3050405, 6904131, 6655765 ####[address] [place] [address] Globulin (S) [Mass/Vol] 3.6 g/dL Normal 1.4-4.0 [facility] Comment on above: Performed By: #### 1 1751205, 9815113, 6383863, 9597116, 9330387, 3453537 ####[facility] [address] [place] [address] Protein [Mass/Vol] 6.7 g/dL Normal 6.0-7.8 [facility] Comment on above: Performed By: #### 1 8250567, 4124525, 8942861, 9001911, 6691598, 5228849 ####[address] [place] [address] Bilirubin.direct [Mass/Vol] mg/dL Normal 0.1-0.4 [facility] Comment on above: Performed By: #### 1 7269465, 1652256, 6308318, 8126593, 9111547, 9335109 ####[facility] [address] [place] [address] Lipase Levelon 07-25-2023 Lipase [Catalytic activity/Vol] 28 U/L Normal 13-58 [facility] Comment on above: Performed By: #### 1 5969160, 1747557, 5109599, 2128132, 9170209, 5880487 ####[facility] [address] [place] [address] UA With Cult Reflexon 2022 Bacteria LM Ql (Urine sed) TRACE Normal Trace [facility] Comment on above: Performed By: #### 2 926046, 77961010 ####[facility] [address] [place] [address] Bilirubin Ql (U) Negative Normal Negative [facility] Comment on above: Performed By: #### 2 243174, 21648724 ####[address] [address] Clarity (U) SL CLOUDY Abnormal Clear [facility] Comment on above: Performed By: #### 2 837377, 50580526 ####[facility] [address] [place] [address] Color (U) YELLOW Normal Yellow [facility] Comment on above: Performed By: #### 2 806076, 94196236 ####[address] [address] Epithelial cells.squamous LM.HPF (Urine sed) [#/Area] 0-2 Normal 0-2 [facility] Comment on above: Performed By: #### 2 135641, 48077628 ####[facility] [address] [place] [address] Glucose Test strip (U) [Mass/Vol] Negative Normal Negative [facility] Comment on above: Performed By: #### 2 699624, 95388583 ####[facility] [address] [place] [address] Hemoglobin Ql (U) Negative Normal Negative [facility] Comment on above: Performed By: #### 2 622733, 83353993 ####[facility] [address] [place] [address] Ketones (U) [Mass/Vol] Negative Normal Negative [facility] Comment on above: Performed By: #### 2 372746, 05487580 ####[facility] [address] [place] [address] [place].plasma/[place] .RBC (Bld) [Mass ratio] 0-3 Normal 0-3 [facility] Comment on above: Performed By: #### 2 215809, 53662659 ####[facility] [address] [place] [address] Nitrite Ql (U) Negative Normal Negative [facility] Comment on above: Performed By: #### 2 110627, 76377217 ####[facility] [address] [place] [address] pH (U) 7.5 [pH] Invalid Interpretation Code 5.0-9.0 [facility] Comment on above: Performed By: #### 2 808411, 40511865 ####[facility] [address] [place] [address] Protein (U) [Mass/Vol] Negative Normal Negative [facility] Comment on above: Performed By: #### 2 277425, 20195184 ####[facility] [address] [place] [address] Specific gravity (U) [Rel density] 1.010 Invalid Interpretation Code 1.005-1.030 [facility] Comment on above: Performed By: #### 2 492025, 85154035 ####[facility] [address] [place] [address] Type of Urine collection method Clean Catch Normal [facility] Comment on above: Performed By: #### 2 464299, 68017919 ####[facility] [address] [place] [address] Urobilinogen Qn (U) 1.0 {Rola'U}/dL Normal 0.0-1.0 [facility] Comment on above: Performed By: #### 2 625054, 96013988 ####[facility] [address] [place] [address] WBC Auto Ql (U) 2+ Abnormal Negative [facility] Comment on above: Performed By: #### 2 614935, 43182520 ####[facility] [address] [place] [address] WBC LM.HPF (Urine sed) [#/Area] 0-5 Normal 0-5 [facility] Comment on above: Performed By: #### 2 322842, 85004140 ####[facility] [address] URINALYSISOrdered By: Emy Aiken on 07-25-2023 Bacteria LM Ql (Urine sed) Trace /HPF Normal Trace/HPF [facility] Auto SS Bilirubin Ql (U) Negative (07/25/23 8:33 AM) Normal Negative [facility] UA Auto SS Clarity (U) Slightly Cloudy *ABN* (07/25/23 8:33 AM) Invalid Interpretation Code Clear [facility] UA Auto SS Color (U) Yellow (07/25/23 8:33 AM) Normal Yellow [facility] UA Auto SS Epithelial cells.squamous LM.HPF (Urine sed) [#/Area] 0-2 /HPF Normal 0-2/HPF [facility] UA Auto SS Glucose Test strip (U) [Mass/Vol] Negative (07/25/23 8:33 AM) Normal Negative [facility] UA Auto SS Hemoglobin Ql (U) Negative (07/25/23 8:33 AM) Normal Negative [facility] UA Auto SS Ketones (U) [Mass/Vol] Negative (07/25/23 8:33 AM) Normal Negative [facility] UA Auto SS [place].plasma/[place] .RBC (Bld) [Mass ratio] 0-3 /HPF Normal 0-3/HPF [facility] UA Auto SS Nitrite Ql (U) Negative (07/25/23 8:33 AM) Normal Negative [facility] Auto SS pH (U) 7.5 *NA* (07/25/23 8:33 AM) Invalid Interpretation Code 5.0 - 9.0 [facility] Auto SS Protein (U) [Mass/Vol] Negative (07/25/23 8:33 AM) Normal Negative [facility] UA Auto SS Specific gravity (U) [Rel density] 1.010 *NA* (07/25/23 8:33 AM) Invalid Interpretation Code 1.005 - 1.030 [facility] Auto SS UA Spec Desc Clean Catch (07/25/23 8:33 AM) Normal [facility] UA Auto SS Urobilinogen Qn (U) 1.1018329 {Rola'U}/dL Normal 0.0 - 1.0 EU/dL [facility] Auto SS WBC Auto Ql (U) 2+ *ABN* (07/25/23 8:33 AM) Invalid Interpretation Code Negative [facility] UA Auto SS WBC LM.HPF (Urine sed) [#/Area] 0-5 /HPF Normal 0-5/HPF [facility] UA Auto SS US Limitedon 07-25 US Limited Normal Fish [facility] eGFRon 07-25-2023 GFR/1.73 sq M.predicted among non-blacks MDRD (S/P/Bld) [Vol rate/Area] 125 mL/min/1.73 m2 Normal >=59 [facility] Comment on above: Order Comment: Order added by Discern Expert. Result Comment: Crawler Crane Operator lucy kidney disease could be indicated at eGFR's of less than 60 mL/min/1.73m2. Kidney failure is indicated at less than 15 mL/min/1.73m2. Performed By: #### 1 6692460, 5874342, 6458770, 6851314, 5582774, 0314210 ####[facility] [address] [place] [address] C Urineon 06-30-2023 Bacteria identified Cx Nom (U) Normal [facility] Comment on above: Performed By: #### 2 435902 ####[facility] [address] [place] [address] Family Medicine Office/Clini c Noteon 06-28-2023 Family Medicine Office/Clinic Note Normal [facility] Comment on above: Result Comment: Elec tronically Signed By: Татьяна NICHOLS, Roverto Barron\.br\Date and Time Signed: 06/28/23 11:41 EDT Patient Educationon 06-28-20 Patient Education Normal [facility] ABO/Rhon 06-14-2023 ABO/Rh Positive Invalid Interpretation Code [facility] Comment on above: Performed By: #### 2 537363 ####[facility] [address] [place] [address] Auto Diffon 06-14-2023 Basophils/100 WBC (Bld) 0.8 % Normal 0.0-2.0 [facility] Comment on above: Order Comment: Order Added by Discern Expert. Performed By: #### 2 405850, 6742699, 3354182, 2898738, 6068799, 65127728 ####[facility] [address] [place] [address] Basophils/Leukocytes Auto (Bld) [Pure # fraction] 0.0 E9/L Normal 0.0-0.2 [facility] Comment on above: Order Comment: Order Added by Discern Expert. Performed By: #### 2 226813, 6468548, 0158220, 3382982, 5634179, 69821399 ####[facility] [address] [place] [address] Eosinophils/100 WBC (Bld) 1.9 % Normal 0.0-8.0 [facility] Comment on above: Order Comment: Order Added by Discern Expert. Performed By: #### 2 414086, 5828852, 4993220, 3226849, 0646175, 89168279 ####[facility] [address] [place] [address] Eosinophils/Leukocytes Auto (Bld) [Pure # fraction] 0.1 E9/L Normal 0.0-0.5 [facility] Comment on above: Order Comment: Order Added by Discern Expert. Performed By: #### 2 352407, 3386624, 0202716, 1901621, 9857904, 27533956 ####[address] [place] [address] Lymphocytes/100 WBC (Bld) 24.5 % Normal 14.0-50.0 [facility] Comment on above: Order Comment: Order Added by Discern Expert. Performed By: #### 2 311455, 1804332, 9972031, 7599480, 1889501, 55628951 ####[address] [place] [address] Lymphocytes/Leukocytes Auto (Bld) [Pure # fraction] 1.3 E9/L Normal 1.0-4.0 [facility] Comment on above: Order Comment: Order Added by Discern Expert. Performed By: #### 2 620659, 5425332, 4013675, 8218276, 0291918, 49481389 ####[address] [address] Monocytes/100 WBC (Bld) 7.8 % Normal 4.0-14.0 [facility] Comment on above: Order Comment: Order Added by Gisselle Expert. Performed By: #### 2 737984, 3120470, 0025642, 3743276, 1340374, 84622766 ####[address] [address] Monocytes/Leukocytes Auto (Bld) [Pure # fraction] 0.4 E9/L Normal 0.2-1.0 [facility] Comment on above: Order Comment: Order Added by Discern Expert. Performed By: #### 2 517032, 4764905, 4138117, 5015109, 2666384, 53054726 ####[address] [address] Neutrophils/100 WBC (Bld) 65.0 % Normal 36.0-75.0 [facility] Comment on above: Order Comment: Order Added by Discern Expert. Performed By: #### 2 038864, 1149267, 4878610, 7285928, 0698989, 46835652 ####[address] [place] [address] Neutrophils/Leukocytes Auto (Bld) [Pure # fraction] 3.5 E9/L Normal 2.0-7.5 [facility] Comment on above: Order Comment: Order Added by Discern Expert. Performed By: #### 2 034966, 6054062, 5858871, 5211454, 6117889, 37220215 ####[facility] [address] [place] [address] BLOOD BANKOrdered By: Keila Kumar on 06-14-2023 ABO/Rh Interp Positive Invalid Interpretation Code [facility] BB Subsection BMPon 06-14-2023 Creatinine [Mass/Vol] 0.5 mg/dL Normal 0.5-1.3 [facility] Comment on above: Performed By: #### 2 837814, 2569468, 5594125, 0833068, 1913345, 76638348 ####[facility] [address] [place] [address] Urea nitrogen [Mass/Vol] 6 mg/dL Normal 5-21 [facility] Comment on above: Performed By: #### 2 640685, 4890194, 9283188, 8961755, 2152832, 45774126 ####[facility] [address] [place] [address] Urea nitrogen/Creatinine [Mass ratio] 12 No Units Normal 10-20 [facility] Comment on above: Performed By: #### 2 041156, 7269957, 7733101, 2814840, 3963768, 34812128 ####[facility] [address] [place] [address] Anion gap [Moles/Vol] 10 mmol/L Normal 6-16 [facility] Comment on above: Performed By: #### 2 521756, 5761191, 6720970, 7213407, 1456595, 15615383 ####[facility] [address] [place] [address] Calcium [Mass/Vol] 8.7 mg/dL Low 8.9-11.1 [facility] Comment on above: Performed By: #### 2 547411, 9898172, 7419099, 4417529, 0785066, 37677299 ####[facility] [address] [place] [address] Chloride [Moles/Vol] 107 mmol/L Normal 101-111 Fish [facility] Comment on above: Performed By: #### 2 142012, 4914082, 8182819, 2068274, 5420490, 20594763 ####[facility] [facility] [address] [place] [address] CO2 [Moles/Vol] 21 mmol/L Normal 21-31 [facility] Comment on above: Performed By: #### 2 408763, 0251884, 6776512, 4356272, 6326165, 03462367 ####[facility] [address] [place] [address] Glucose [Mass/Vol] 77 mg/dL Normal 55-199 [facility] Comment on above: Result Comment: If t his glucose result represents a fasting glucose, interpretation should refer to the following reference range: 55-99 mg/dL Performed By: #### 2 682943, 0739723, 1905565, 5036143, 5611502, 69670501 ####[facility] [address] [place] [address] Potassium [Moles/Vol] 3.8 mmol/L Normal 3.5-5.3 [facility] Comment on above: Performed By: #### 2 400079, 0830196, 6811234, 3917492, 4827824, 43509986 ####[facility] [address] [place] [address] Sodium [Moles/Vol] 134 mmol/L Low 135-145 [facility] Comment on above: Performed By: #### 2 319060, 2596152, 0697470, 9112775, 9646089, 43969784 ####[facility] [address] [facility] [address] BhCG Quanton 06-14-2023 HCG.beta subunit Qn 383109 m[IU]/mL High 1-3 [facility] Comment on above: Result Comment: GEST ATIONAL AGE HCG RANGE (mIU/mL) NON- <1-3 0.2-1 WEEKS 5-50 1-2 WEEKS 50-500 2-3 WEEKS 100-5,000 3-4 WEEKS 500-10,000 4-5 WEEKS 1,000-50,000 5-6 WEEKS 10,000-100,000 6-8 WEEKS 15,000-200,000 8-12 WEEKS 10,000-100,000 Performed By: #### 2 921264 ####[facility] [address] [place] [address] CBC w/ Auto Diffon Erythrocyte distribution width (RBC) [Ratio] 12.6 % Normal 10.9-14.2 [facility] Comment on above: Performed By: #### 2 609890, 7349484, 6784555, 1110677, 3512198, 54045768 ####[facility] [address] [place] [address] Hematocrit (Bld) [Volume fraction] 39.9 % Normal 34.0-46.0 [facility] Comment on above: Performed By: #### 2 944438, 4488045, 1948627, 3385525, 2992827, 35461928 ####[facility] [address] [place] [address] Hemoglobin (Bld) [Mass/Vol] 13.4 g/dL Normal 12.0-16.0 [facility] Comment on above: Performed By: #### 2 704005, 4814613, 9637802, 1871681, 8875768, 77956068 ####[facility] [address] [place] [address] MCH (RBC) [Entitic mass] 29.8 pg Normal 27.0-34.0 [facility] Comment on above: Performed By: #### 2 790203, 6038011, 5805394, 7617591, 3513851, 50032641 ####[place] [address] MCHC (RBC) [Mass/Vol] 33.6 g/dL Normal 31.4-36.0 [facility] Comment on above: Performed By: #### 2 434465, 7028144, 9125394, 7173197, 2473455, 51900592 ####[place] [address] MCV (RBC) [Entitic vol] 88.8 fL Normal 80.0-100.0 [facility] Comment on above: Performed By: #### 2 340225, 2972606, 5958465, 1832266, 8882623, 10938524 ####[place] [address] Platelet mean volume (Bld) [Entitic vol] 8.4 fL Normal 6.4-10.8 [facility] Comment on above: Performed By: #### 2 425285, 0236488, 6029779, 5122635, 1759572, 99266320 ####[place] [address] Platelets (Bld) [#/Vol] 225.0 E9/L Normal 150.0-500.0 [facility] Comment on above: Performed By: #### 2 898957, 4755604, 0346266, 4130744, 4017650, 53812611 ####[place] [address] RBC (Bld) [#/Vol] 4.5 E12/L Normal 4.3-5.9 [facility] Comment on above: Performed By: #### 2 687923, 3909526, 7692954, 2641717, 7435993, 17018355 ####[address] [address] WBC corrected for nucl RBC Auto (Bld) [#/Vol] 5.4 E9/L Normal 4.0-11.0 [facility] Comment on above: Performed By: #### 2 793964, 1297963, 1808139, 5514530, 1956366, 80826907 ####[facility] [address] [place] [address] CHEMISTRYOrdered By: SYSTEM SYSTEM on 06-14-2023 Albumin [...] Bilirubin [Mass/Vol] 0.6 mg/dL Normal 0.0 - 1 .1 mg/dL [facility] Bilirubin.direct [Mass/Vol] mg/dL Normal 0.1 - 0.4 mg/dL [facility] Bilirubin.indirect [Mass or moles/Vol] Unable to Calculate mg/dL Invalid Interpretation Code 0.1 - 0.9 mg/dL [facility] Calcium [Mass/Vol] 8.7 mg/dL Low 8.9 - 11. 1 mg/dL [facility] Chloride [Moles/Vol] 107 mmol/L Normal 101 - 1 11 mmol/L [facility] CO2 [Moles/Vol] 21 mmol/L Normal 21 - 31 mmol/L [facility] Creatinine [Mass/Vol] 0.5 mg/dL Normal 0.5 - 1.3 mg/dL [facility] GFR/1.73 sq M.predicted among non-blacks MDRD (S/P/Bld) [Vol rate/Area] 130 mL/min/1.73 m2 Normal >=59mL/min/ 1.73 m2 [facility] Chem S Globulin (S) [Mass/Vol] 3.3 g/dL Normal 1.4 - 4.0 gm/dL [facility] Glucose [Mass/Vol] 77 mg/dL Normal 55 - 199 mg/dL [facility] HCG.beta subunit Qn 414873 m[IU]/mL High 1 - 3 mIU/mL [facility] Lipase [Catalytic activity/Vol] 28 U/L Normal 13 - 58 unit/L [facility] Potassium [Moles/Vol] 3.8 mmol/L Normal 3.5 - 5.3 mmol/L [facility] Protein [Mass/Vol] 6.8 g/dL Normal 6.0 - 7.8 gm/dL [facility] Sodium [Moles/Vol] 134 mmol/L Low 135 - 145 mmol/L [facility] Urea nitrogen [Mass/Vol] 6 mg/dL Normal 5 - 21 mg/dL [facility] Urea nitrogen/Creatinine [Mass ratio] 12 mg/mg Normal 10 - 20 [facility] Consent for Treatmenton 05-17 Consent for Treatment [id number]#[id number]:12 7 Normal [facility] ED Clinical Summaryon 2022 ED Clinical Summary Normal [facility] ED Note-Physicianon 06-14-20 ED Note-Physician Normal [facility] Comment on above: Result Comment: Elec tronically Signed By: Jos Ugalde PA-C\.br\Date and Time Signed: 06/14/23 11:58 EDT\.br\Electronically Co-Signed By: Kristian Guillermo DO\.br\Date and Time Co-Signed: 06/14/23 17:02 EDT ED Patient Education Noteon 06-14-2023 ED Patient Education Note Normal [facility] ED Patient Summaryon 023 ED Patient Summary Normal [facility] HEMATOLOGYOrdered By: SYSTEM SYSTEM on 06-14-2023 Basophils/100 WBC (Bld) 0.8 % Normal 0.0 - 2.0 % [facility] HemeAutoSS Basophils/Leukocytes Auto (Bld) [Pure # fraction] 0.0 E9/L Normal 0.0 - 0.2 E9/L [facility]eAutoSS Eosinophils/100 WBC (Bld) 1.9 % Normal 0.0 - 8.0 % [facility] HemeAutoSS Eosinophils/Leukocytes Auto (Bld) [Pure # fraction] 0.1 E9/L Normal 0.0 - 0.5 E9/L [facility]eAutoSS Lymphocytes/100 WBC (Bld) 24.5 % Normal 14.0 - 50.0 % [facility] HemeAutoSS Lymphocytes/Leukocytes Auto (Bld) [Pure # fraction] 1.3 E9/L Normal 1.0 - 4.0 E9/L [facility] HemeAutoSS Monocytes/100 WBC (Bld) 7.8 % Normal 4.0 - 14.0 % [facility] HemeAutoSS Monocytes/Leukocytes Auto (Bld) [Pure # fraction] 0.4 E9/L Normal 0.2 - 1.0 E9/L [facility] HemeAutoSS Neutrophils/100 WBC (Bld) 65.0 % Normal 36.0 - 75.0 % [facility] HemeAutoSS Neutrophils/Leukocytes Auto (Bld) [Pure # fraction] 3.5 E9/L Normal 2.0 - 7.5 E9/L [facility] HemeAutoSS HEMATOLOGYOrdered By: Keila Kumar on 06-14-2023 Erythrocyte distribution width (RBC) [Ratio] 12.6 % Normal 10.9 - 14.2 % [facility] HemeAutoSS Hematocrit (Bld) [Volume fraction] 39.9 % Normal 34.0 - 46.0 % [facility] HemeAutoSS Hemoglobin (Bld) [Mass/Vol] 13.4 g/dL Normal 12.0 - 16.0 gm/dL [facility] HemeAutoSS MCH (RBC) [Entitic mass] 29.8 pg Normal 27.0 - 34.0 pg [facility]eAutoSS MCHC (RBC) [Mass/Vol] 33.6 g/dL Normal 31.4 - 36.0 gm/dL [facility] HemeAutoSS MCV (RBC) [Entitic vol] 88.8 fL Normal 80.0 - 100.0 fL [facility] HemeAutoSS Platelet mean volume (Bld) [Entitic vol] 8.4 fL Normal 6.4 - 10.8 fL [facility] HemeAutoSS Platelets (Bld) [#/Vol] 225.0 E9/L Normal 150.0 - 500.0 E9/L [facility]eAutoSS RBC (Bld) [#/Vol] 4.5 E12/L Normal 4.3 - 5.9 E12/L [facility] WBC corrected for nucl RBC Auto (Bld) [#/Vol] 5.4 E9/L Normal 4.0 - 11.0 E9/L [facility] Hep Func Panelon 06-14-2023 Bilirubin.indirect [Mass or moles/Vol] UTC Abnormal 0.1-0.9 [facility] Comment on above: Result Comment: Resu lt verified by Discern Rule. Performed result UTC (Unable to Calculate) was sent as an Alpha code due the inability to calculate a valid numeric value. Performed By: #### 2 741690, 6546891, 7006906, 2500678, 0416642, 01101040 ####[facility] [address] [place] [address] Albumin [Mass/Vol] 3.5 g/dL Normal 3.3-5.0 [facility] Comment on above: Performed By: #### 2 649200, 1888958, 6296650, 8497507, 7787268, 93445529 ####[facility] [address] [place] [address] Albumin/Globulin (S) [Mass conc ratio] 1.1 Normal 1.1-2.2 [facility] Comment on above: Performed By: #### 2 467915, 7780394, 2859102, 0811665, 2119285, 23214529 ####[facility] [address] [place] [address] ALP [Catalytic activity/Vol] 34 Int._Unit/L Normal 21-98 [facility] Comment on above: Performed By: #### 2 769599, 7904903, 3022612, 5327637, 6005339, 94348349 ####[place] [address] [place] [address] ALT No additional P-5'-P [Catalytic activity/Vol] 13 Int._Unit/L Normal 6-46 [facility] Comment on above: Performed By: #### 2 102487, 7686291, 7939867, 1002832, 4165219, 88693693 ####[facility] [address] [place] [address] AST [Catalytic activity/Vol] 17 Int._Unit/L Normal 5-43 [facility] Comment on above: Performed By: #### 2 669887, 4917332, 0496163, 9202017, 1799181, 32988765 ####[facility] [address] [place] [address] Bilirubin [Mass/Vol] 0.6 mg/dL Normal 0.0-1.1 [facility] Comment on above: Performed By: #### 2 176385, 9963951, 5938651, 7302397, 0453461, 31966636 ####[place] [address] [place] [address] Globulin (S) [Mass/Vol] 3.3 g/dL Normal 1.4-4.0 [facility] Comment on above: Performed By: #### 2 128766, 5592832, 2934754, 6542323, 8718674, 69172130 ####[facility] [address] [place] [address] Protein [Mass/Vol] 6.8 g/dL Normal 6.0-7.8 [facility] Comment on above: Performed By: #### 2 133453, 8960570, 4153845, 3790769, 1127798, 26054819 ####[facility] [address] [place] [address] Bilirubin.direct [Mass/Vol] mg/dL Normal 0.1-0.4 [facility] Comment on above: Performed By: #### 2 902385, 7974944, 5574938, 3866622, 5229824, 66457159 ####[facility] [address] [place] [address] Lipase Levelon 06-14-2023 Lipase [Catalytic activity/Vol] 28 U/L Normal 13-58 [facility] Comment on above: Performed By: #### 2 877548, 0992370, 0895427, 8241511, 2794477, 41719295 ####[facility] [address] [place] [address] Progress Note-Nurseon 2022 Progress Note-Nurse Lizet RN verbalize d she was unable to locate patient at this time Normal [facility] UA With Cult Reflexon 2022 Bacteria LM Ql (Urine sed) TRACE Normal Trace [facility] Comment on above: Performed By: #### 1 5294895 ####[facility] [address] [place] [address] Bilirubin Ql (U) Negative Normal Negative [facility] Comment on above: Performed By: #### 1 2726467 ####[address] [address] Clarity (U) CLEAR Normal Clear [facility] Comment on above: Performed By: #### 1 3688048 ####[facility] [address] [place] [address] Color (U) YELLOW Normal Yellow [facility] Comment on above: Performed By: #### 1 4857188 ####[facility] [address] [place] [address] Epithelial cells.squamous LM.HPF (Urine sed) [#/Area] 3-4 Normal 0-2 [facility] Comment on above: Performed By: #### 1 8408445 ####[facility] [address] [place] [address] Glucose Test strip (U) [Mass/Vol] Negative Normal Negative [facility] Comment on above: Performed By: #### 1 9403745 ####[facility] [address] [place] [address] Hemoglobin Ql (U) Negative Normal Negative [facility] Comment on above: Performed By: #### 1 0909061 ####[facility] [address] [place] [address] Ketones (U) [Mass/Vol] Negative Normal Negative [facility] Comment on above: Performed By: #### 1 9209906 ####[address] [address] [place].plasma/[place] .RBC (Bld) [Mass ratio] 0-3 Normal 0-3 [facility] Comment on above: Performed By: #### 1 8679824 ####[address] [address] Mucus Ql (Urine sed) TRACE Normal Fish [facility] Comment on above: Performed By: #### 1 9740021 ####[address] [address] Nitrite Ql (U) Negative Normal Negative [facility] Comment on above: Performed By: #### 1 5377619 ####[address] [address] pH (U) 6.5 [pH] Invalid Interpretation Code 5.0-9.0 [facility] Comment on above: Performed By: #### 1 9686400 ####[address] [address] Protein (U) [Mass/Vol] Negative Normal Negative [facility] Comment on above: Performed By: #### 1 8817725 ####[address] [address] Specific gravity (U) [Rel density] 1.015 Invalid Interpretation Code 1.005-1.030 [facility] Comment on above: Performed By: #### 1 7289369 ####[address] [address] Type of Urine collection method Clean Catch Normal [facility] Comment on above: Performed By: #### 1 9073087 ####[address] [address] Urobilinogen Qn (U) 0.2 {Rola'U}/dL Normal 0.0-1.0 [facility] Comment on above: Performed By: #### 1 7040476 ####[address] [address] WBC Auto Ql (U) TRACE Abnormal Negative [facility] Comment on above: Performed By: #### 1 1418607 ####[facility] [address] [place] [address] WBC LM.HPF (Urine sed) [#/Area] 0-5 Normal 0-5 [facility] Comment on above: Performed By: #### 1 4517557 ####[facility] [address] [place] [address] URINALYSISOrdered By: An Mccarty on 06-14-2023 Bacteria LM Ql (Urine sed) Trace /HPF Normal Trace/HPF [facility] UA Auto SS Bilirubin Ql (U) Negative (06/14/23 10:13 AM) Normal Negative [facility] UA Auto SS Clarity (U) Clear (06/14/23 10:13 AM) Normal Clear [facility] UA Auto SS Color (U) Yellow (06/14/23 10:13 AM) Normal Yellow [facility] UA Auto SS Epithelial cells.squamous LM.HPF (Urine sed) [#/Area] 3-4 /HPF Normal 0-2/HPF [facility] UA Auto SS Glucose Test strip (U) [Mass/Vol] Negative (06/14/23 10:13 AM) Normal Negative [facility] UA Auto SS Hemoglobin Ql (U) Negative (06/14/23 10:13 AM) Normal Negative [facility] UA Auto SS Ketones (U) [Mass/Vol] Negative (06/14/23 10:13 AM) Normal Negative [facility] UA Auto SS [place].plasma/[place] .RBC (Bld) [Mass ratio] 0-3 /HPF Normal 0-3/HPF [...] AM) Invalid Interpretation Code 1.005 - 1.030 [facility] Auto SS UA Spec Desc Clean Catch (06/14/23 10:13 AM) Normal [facility] UA Auto SS Urobilinogen Qn (U) 0.9190456 {Rola'U}/dL Normal 0.0 - 1.0 EU/dL [facility] UA Auto SS WBC Auto Ql (U) Trace *ABN* (06/14/23 10:13 AM) Invalid Interpretation Code Negative [facility] UA Auto SS WBC LM.HPF (Urine sed) [#/Area] 0-5 /HPF Normal 0-5/HPF [facility] UA Auto SS US 1st Trimesteron 06-14-2023 US 1st Trimester Normal [facility] eGFRon 06-14-2023 GFR/1.73 sq M.predicted among non-blacks MDRD (S/P/Bld) [Vol rate/Area] 130 mL/min/1.73 m2 Normal >=59 [facility] Comment on above: Order Comment: Order added by Discern Expert. Result Comment: Crawler Crane Operator lucy kidney disease could be indicated at eGFR's of less than 60 mL/min/1.73m2. Kidney failure is indicated at less than 15 mL/min/1.73m2. Performed By: #### 2 970126, 5471024, 3613155, 5210958, 1321087, 75615049 ####[facility] [address] [place] [address] CHEMISTRYOrdered By: SYSTEM SYSTEM on 06-12-2023 TSH Qn 3.80 m[IU]/L Normal 0.34 - 5.60 mcIU/mL [facility] Consent for Treatmenton 05-16 Consent for Treatment [id number]#[id number]:12 7 Normal [facility] Physician Orderon 06-12-2023 Physician Order [id number]#1.00CD:12 7 Normal [facility] TSHon 06-12-2023 TSH Qn 3.80 m[IU]/L Normal 0.34-5.60 [facility] Comment on above: Performed By: #### 2 025887 ####[facility] [address] [place] [address] BhCG Quanton 05-22-2023 HCG.beta subunit Qn 301766 m[IU]/mL High 1-3 [facility] Comment on above: Result Comment: GEST ATIONAL AGE HCG RANGE (mIU/mL) NON- <1-3 0.2-1 WEEKS 5-50 1-2 WEEKS 50-500 2-3 WEEKS 100-5,000 3-4 WEEKS 500-10,000 4-5 WEEKS 1,000-50,000 5-6 WEEKS 10,000-100,000 6-8 WEEKS 15,000-200,000 8-12 WEEKS 10,000-100,000 Performed By: #### 2 297010 ####[facility] [address] [place] [address] Discharge Instructionson Discharge Instructions [id number]#[id number]:1 27 Normal [facility] ED Clinical Summaryon 2022 ED Clinical Summary Normal [facility] ED Note-Physicianon 05-22-20 23 ED Note-Physician Normal [facility] Comment on above: Result Comment: Elec tronically Signed By: Gopi Rodriguez DO\.br\Date and Time Signed: 05/21/23 23:17 EDT ED Patient Education Noteon 05-22-2023 ED Patient Education Note Normal [facility] ED Patient Summaryon 023 ED Patient Summary Normal [facility] UA With Cult Reflexon 2022 Bacteria LM Ql (Urine sed) TRACE Normal Trace [facility] Comment on above: Performed By: #### 1 [id number] ####[facility] [address] [place] [address] Bilirubin Ql (U) Negative Normal Negative [facility] Comment on above: Performed By: #### 1 9262292 ####[facility] [address] [place] [address] Clarity (U) CLEAR Normal Clear [facility] Comment on above: Performed By: #### 1 6012394 ####[facility] [address] [place] [address] Color (U) DARK YELLO Abnormal Yellow [facility] Comment on above: Performed By: #### 1 6708233 ####[facility] [address] [place] [address] Epithelial cells.squamous LM.HPF (Urine sed) [#/Area] 0-2 Normal 0-2 [facility] Comment on above: Performed By: #### 1 2409079 ####[facility] [address] [place] [address] Glucose Test strip (U) [Mass/Vol] Negative Normal Negative [facility] Comment on above: Performed By: #### 1 4857072 ####[facility] [address] [place] [address] Hemoglobin Ql (U) TRACE Abnormal Negative [facility] Comment on above: Performed By: #### 1 6889457 ####[facility] [address] [place] [address] Ketones (U) [Mass/Vol] TRACE Abnormal Negative [facility] Comment on above: Performed By: #### 1 9944356 ####[facility] [address] [place] [address] [place].plasma/[place] .RBC (Bld) [Mass ratio] 4-20 Normal 0-3 [facility] Comment on above: Performed By: #### 1 8144251 ####[facility] [address] [place] [address] Mucus Ql (Urine sed) 1+ Normal Fish [facility] Comment on above: Performed By: #### 1 6255698 ####[facility] [address] [place] [address] Nitrite Ql (U) Negative Normal Negative [facility] Comment on above: Performed By: #### 1 5609268 ####[facility] [address] [place] [address] pH (U) 6.0 [pH] Invalid Interpretation Code 5.0-9.0 [facility] Comment on above: Performed By: #### 1 5822965 ####[address] [address] Protein (U) [Mass/Vol] 2+ Abnormal Negative [facility] Comment on above: Performed By: #### 1 6688465 ####[place] [address] Specific gravity (U) [Rel density] >=1.030 Invalid Interpretation Code 1.005-1.030 [facility] Comment on above: Performed By: #### 1 4639913 ####[place] [address] Type of Urine collection method Clean Catch Normal [facility] Comment on above: Performed By: #### 1 9946817 ####[address] [address] Urobilinogen Qn (U) 0.2 {Rola'U}/dL Normal 0.0-1.0 [facility] Comment on above: Performed By: #### 1 1785356 ####[address] [address] WBC Auto Ql (U) Negative Normal Negative [facility] Comment on above: Performed By: #### 1 3732407 ####[address] [address] WBC LM.HPF (Urine sed) [#/Area] 0-5 Normal 0-5 [facility] Comment on above: Performed By: #### 1 9479033 ####[address] [address] US 1st Trimesteron 05-22-2023 US 1st Trimester Normal [facility] Auto Diffon 05-21-2023 Basophils/100 WBC (Bld) 1.0 % Normal 0.0-2.0 [facility] Comment on above: Order Comment: Order Added by Discern Expert. Performed By: #### 2 102916, 6789466, 16927487, 25127118, 6997329, 8021830, 3546545 ####[place] [address] [place] [address] Basophils/Leukocytes Auto (Bld) [Pure # fraction] 0.1 E9/L Normal 0.0-0.2 [facility] Comment on above: Order Comment: Order Added by Discern Expert. Performed By: #### 2 705111, 9913904, 35639692, 72407105, 1795325, 0367295, 6883355 ####[place] [address] [place] [address] Eosinophils/100 WBC (Bld) 1.5 % Normal 0.0-8.0 [facility] Comment on above: Order Comment: Order Added by Discern Expert. Performed By: #### 2 819558, 3688362, 96121514, 26752012, 3405072, 8678931, 0689468 ####[address] [address] Eosinophils/Leukocytes Auto (Bld) [Pure # fraction] 0.1 E9/L Normal 0.0-0.5 [facility] Comment on above: Order Comment: Order Added by Discern Expert. Performed By: #### 2 464415, 6886739, 24319269, 99531159, 7630388, 0537842, 0240549 ####[address] [address] Lymphocytes/100 WBC (Bld) 36.6 % Normal 14.0-50.0 [facility] Comment on above: Order Comment: Order Added by Discern Expert. Performed By: #### 2 625230, 8415458, 50568123, 43088811, 4657151, 7951032, 0127949 ####[address] [address] Lymphocytes/Leukocytes Auto (Bld) [Pure # fraction] 2.5 E9/L Normal 1.0-4.0 [facility] Comment on above: Order Comment: Order Added by Discern Expert. Performed By: #### 2 049260, 9207405, 12451241, 11164579, 6186383, 2501927, 0076214 ####[facility] [address] [place] [address] Monocytes/100 WBC (Bld) 8.2 % Normal 4.0-14.0 [facility] Comment on above: Order Comment: Order Added by Discern Expert. Performed By: #### 2 323896, 7102262, 67391455, 60826090, 0075080, 7423438, 0265638 ####[facility] [address] [place] [address] Monocytes/Leukocytes Auto (Bld) [Pure # fraction] 0.6 E9/L Normal 0.2-1.0 [facility] Comment on above: Order Comment: Order Added by Discern Expert. Performed By: #### 2 364453, 0299100, 48738631, 52688205, 4892129, 0189701, 1206941 ####[facility] [address] [place] [address] Neutrophils/100 WBC (Bld) 52.7 % Normal 36.0-75.0 [facility] Comment on above: Order Comment: Order Added by Discern Expert. Performed By: #### 2 683058, 0341198, 59855341, 23297908, 1738789, 8236947, 7986087 ####[facility] [address] [place] [address] Neutrophils/Leukocytes Auto (Bld) [Pure # fraction] 3.6 E9/L Normal 2.0-7.5 [facility] Comment on above: Order Comment: Order Added by Discern Expert. Performed By: #### 2 614031, 8687786, 98772678, 91556473, 1254702, 5314232, 4951613 ####[facility] [address] [place] [address] BMPon 05-21-2023 Creatinine [Mass/Vol] 0.7 mg/dL Normal 0.5-1.3 [facility] Comment on above: Performed By: #### 2 191584, 6638502, 72793170, 47824771, 4894044, 6183138, 0087298 ####[facility] [address] [place] [address] Urea nitrogen [Mass/Vol] 8 mg/dL Normal 5-21 [facility] Comment on above: Performed By: #### 2 411696, 9076430, 97286046, 44698741, 7143917, 5845092, 7905683 ####[facility] [address] [place] [address] Urea nitrogen/Creatinine [Mass ratio] 11 No Units Normal 10-20 [facility] Comment on above: Performed By: #### 2 670474, 3427928, 98989194, 20577416, 7973106, 4432790, 4848533 ####[facility] [address] [place] [address] Anion gap [Moles/Vol] 12 mmol/L Normal 6-16 [facility] Comment on above: Performed By: #### 2 040192, 1777366, 19962928, 58310834, 2223363, 5315879, 4428037 ####[facility] [address] [place] [address] Calcium [Mass/Vol] 9.2 mg/dL Normal 8.9-11.1 [facility] Comment on above: Performed By: #### 2 038695, 7077643, 23009294, 47249309, 9108342, 2565533, 6632987 ####[facility] [address] [place] [address] Chloride [Moles/Vol] 104 mmol/L Normal 101-111 [facility] Comment on above: Performed By: #### 2 831118, 1337504, 40876699, 83536327, 3054549, 8592755, 4983222 ####[facility] [address] [place] [address] CO2 [Moles/Vol] 24 mmol/L Normal 21-31 [facility] Comment on above: Performed By: #### 2 020432, 5536990, 53766666, 32385747, 9958766, 2037311, 3773838 ####[facility] [address] [place] [address] Glucose [Mass/Vol] 87 mg/dL Normal 55-199 [facility] Comment on above: Result Comment: If t his glucose result represents a fasting glucose, interpretation should refer to the following reference range: 55-99 mg/dL Performed By: #### 2 921335, 1847754, 87415534, 22010328, 8234451, 6560930, 6253242 ####[facility] [address] [place] [address] Potassium [Moles/Vol] 3.2 mmol/L Low 3.5-5.3 [facility] Comment on above: Performed By: #### 2 811648, 6312926, 75007458, 38488699, 2567877, 3521678, 2946190 ####[facility] [address] [place] [address] Sodium [Moles/Vol] 137 mmol/L Normal 135-145 [facility] Comment on above: Performed By: #### 2 085034, 0470890, 71672187, 59893022, 3684717, 7274162, 2797100 ####[facility] [address] [place] [address] CBC w/ Auto Diffon 3 Erythrocyte distribution width (RBC) [Ratio] 13.3 % Normal 10.9-14.2 [facility] Comment on above: Performed By: #### 2 678426, 1439055, 31019730, 03597136, 1826093, 3157559, 3537781 ####[facility] [address] [place] [address] Hematocrit (Bld) [Volume fraction] 39.0 % Normal 34.0-46.0 [facility] Comment on above: Performed By: #### 2 923326, 8330367, 16868080, 59876941, 1339771, 8112415, 3489509 ####[facility] [address] [place] [address] Hemoglobin (Bld) [Mass/Vol] 13.3 g/dL Normal 12.0-16.0 [facility] Comment on above: Performed By: #### 2 693989, 9305495, 75631157, 17772080, 0304975, 3527099, 7155590 ####[facility] [address] [place] [address] MCH (RBC) [Entitic mass] 30.3 pg Normal 27.0-34.0 [facility] Comment on above: Performed By: #### 2 823264, 6050797, 61487593, 77357037, 8596233, 3843425, 9041903 ####[address] [address] MCHC (RBC) [Mass/Vol] 34.2 g/dL Normal 31.4-36.0 [facility] Comment on above: Performed By: #### 2 905734, 5049535, 84126467, 65618149, 3554928, 9993726, 9594959 ####[address] [address] MCV (RBC) [Entitic vol] 88.7 fL Normal 80.0-100.0 [facility] Comment on above: Performed By: #### 2 800117, 9361933, 44824752, 66970490, 8278745, 3169322, 8793341 ####[address] [address] Platelet mean volume (Bld) [Entitic vol] 7.8 fL Normal 6.4-10.8 [facility] Comment on above: Performed By: #### 2 659499, 4456051, 64356489, 94743137, 3801949, 0619328, 0286773 ####[address] [place] [address] Platelets (Bld) [#/Vol] 225.0 E9/L Normal 150.0-500.0 [facility] Comment on above: Performed By: #### 2 451102, 7745940, 61364521, 52001204, 5617940, 9621332, 4317536 ####[facility] [address] [place] [address] RBC (Bld) [#/Vol] 4.4 E12/L Normal 4.3-5.9 [facility] Comment on above: Performed By: #### 2 555993, 9921527, 56605114, 87714895, 4226795, 1614105, 5297869 ####[facility] [address] [place] [address] WBC corrected for nucl RBC Auto (Bld) [#/Vol] 6.8 E9/L Normal 4.0-11.0 [facility] Comment on above: Performed By: #### 2 492915, 1154332, 59793979, 15692224, 7408464, 0162688, 5435016 ####[facility] [address] [place] [address] CHEMISTRYOrdered By: SYSTEM SYSTEM on 05-21-2023 HCG.beta subunit Qn 702692 m[IU]/mL High 1 - 3 mIU/mL [facility] Remisol Albumin [Mass/Vol] 3.8 g/dL Normal [...] Bilirubin [Mass/Vol] 0.5 mg/dL Normal 0.0 - 1 .1 mg/dL [facility] Remisol Bilirubin.direct [Mass/Vol] mg/dL Normal 0.1 - 0.4 mg/dL [facility] Remisol Bilirubin.indirect [Mass or moles/Vol] Unable to Calculate mg/dL Invalid Interpretation Code 0.1 - 0.9 mg/dL [facility] Calcium [Mass/Vol] 9.2 mg/dL Normal 8.9 - 11. 1 mg/dL [facility] Chloride [Moles/Vol] 104 mmol/L Normal 101 - 1 11 mmol/L [facility] CO2 [Moles/Vol] 24 mmol/L Normal 21 - 31 mmol/L [facility] Creatinine [Mass/Vol] 0.7 mg/dL Normal 0.5 - 1.3 mg/dL [facility] GFR/1.73 sq M.predicted among non-blacks MDRD (S/P/Bld) [Vol rate/Area] 120 mL/min/1.73 m2 Normal >=59mL/min/ 1.73 m2 [facility] Chem S Globulin (S) [Mass/Vol] 3.1 g/dL Normal 1.4 - 4.0 gm/dL [facility] Glucose [Mass/Vol] 87 mg/dL Normal 55 - 199 mg/dL [facility] Lipase [Catalytic activity/Vol] 31 U/L Normal 13 - 58 unit/L [facility] Potassium [Moles/Vol] 3.2 mmol/L Low 3.5 - 5.3 mmol/L [facility] Protein [Mass/Vol] 6.9 g/dL Normal 6.0 - 7.8 gm/dL [facility] Sodium [Moles/Vol] 137 mmol/L Normal 135 - 145 mmol/L [facility] Troponin I.cardiac [Mass/Vol] 2.50 pg/mL Low 10.10 - 27.10 pg/mL [facility] Urea nitrogen [Mass/Vol] 8 mg/dL Normal 5 - 21 mg/dL [facility] Urea nitrogen/Creatinine [Mass ratio] 11 mg/mg Normal 10 - 20 [facility] Consent for Treatmenton Consent for Treatment [id number]#1.00CD:12 7 Normal [facility] HEMATOLOGYOrdered By: SYSTEM SYSTEM on 05-21-2023 Basophils/100 WBC (Bld) 1.0 % Normal 0.0 - 2.0 % [facility] HemeAutoSS Basophils/Leukocytes Auto (Bld) [Pure # fraction] 0.1 E9/L Normal 0.0 - 0.2 E9/L [facility] HemeAutoSS Eosinophils/100 WBC (Bld) 1.5 % Normal 0.0 - 8.0 % [facility] HemeAutoSS Eosinophils/Leukocytes Auto (Bld) [Pure # fraction] 0.1 E9/L Normal 0.0 - 0.5 E9/L [facility] HemeAutoSS Lymphocytes/100 WBC (Bld) 36.6 % Normal 14.0 - 50.0 % [facility] HemeAutoSS Lymphocytes/Leukocytes Auto (Bld) [Pure # fraction] 2.5 E9/L Normal 1.0 - 4.0 E9/L [facility] HemeAutoSS Monocytes/100 WBC (Bld) 8.2 % Normal 4.0 - 14.0 % [facility] HemeAutoSS Monocytes/Leukocytes Auto (Bld) [Pure # fraction] 0.6 E9/L Normal 0.2 - 1.0 E9/L [facility] HemeAutoSS Neutrophils/100 WBC (Bld) 52.7 % Normal 36.0 - 75.0 % [facility] HemeAutoSS Neutrophils/Leukocytes Auto (Bld) [Pure # fraction] 3.6 E9/L Normal 2.0 - 7.5 E9/L [facility] HemeAutoSS HEMATOLOGYOrdered By: Tom Avelar on 05-21-2023 Erythrocyte distribution width (RBC) [Ratio] 13.3 % Normal 10.9 - 14.2 % [facility] HemeAutoSS Hematocrit (Bld) [Volume fraction] 39.0 % Normal 34.0 - 46.0 % [facility] HemeAutoSS Hemoglobin (Bld) [Mass/Vol] 13.3 g/dL Normal 12.0 - 16.0 gm/dL [facility] HemeAutoSS MCH (RBC) [Entitic mass] 30.3 pg Normal 27.0 - 34.0 pg [facility] HemeAutoSS MCHC (RBC) [Mass/Vol] 34.2 g/dL Normal 31.4 - 36.0 gm/dL [facility] MCV (RBC) [Entitic vol] 88.7 fL Normal 80.0 - 100.0 fL [facility]eAutoSS Platelet mean volume (Bld) [Entitic vol] 7.8 fL Normal 6.4 - 10.8 fL [facility]eAuto[facility] Platelets (Bld) [#/Vol] 225.0 E9/L Normal 150.0 - 500.0 E9/L [facility]eAuto[facility] RBC (Bld) [#/Vol] 4.4 E12/L Normal 4.3 - 5.9 E12/L [facility] WBC corrected for nucl RBC Auto (Bld) [#/Vol] 6.8 E9/L Normal 4.0 - 11.0 E9/L [facility] HemeAutoSS Hep Func Panelon 05-21-2023 Bilirubin.indirect [Mass or moles/Vol] UTC Abnormal 0.1-0.9 [facility] Comment on above: Result Comment: Resu lt verified by Discern Rule. Performed result UTC (Unable to Calculate) was sent as an Alpha code due the inability to calculate a valid numeric value. Performed By: #### 2 199217, 9701997, 31090689, 95643971, 0996041, 6532986, 9318316 ####[facility] [address] [place] [address] Albumin [Mass/Vol] 3.8 g/dL Normal 3.3-5.0 [facility] Comment on above: Performed By: #### 2 843701, 3686643, 91030044, 95347635, 5302783, 5321436, 5381427 ####[facility] [address] [place] [address] Albumin/Globulin (S) [Mass conc ratio] 1.2 Normal 1.1-2.2 [facility] Comment on above: Performed By: #### 2 574677, 8363807, 24392361, 17617491, 4820989, 8236163, 9955598 ####[facility] [address] [place] [address] ALP [Catalytic activity/Vol] 42 Int._Unit/L Normal 21-98 [facility] Comment on above: Performed By: #### 2 105366, 4334171, 61131225, 84855308, 5400009, 4027705, 1366286 ####[facility] [address] [place] [address] ALT No additional P-5'-P [Catalytic activity/Vol] 13 Int._Unit/L Normal 6-46 [facility] Comment on above: Performed By: #### 2 036610, 1294930, 25272289, 95587960, 2357358, 7115250, 7750847 ####[facility] [address] [place] [address] AST [Catalytic activity/Vol] 14 Int._Unit/L Normal 5-43 [facility] Comment on above: Performed By: #### 2 008234, 3730477, 56325057, 82869949, 3049286, 9528908, 0085406 ####[facility] [address] [place] [address] Bilirubin [Mass/Vol] 0.5 mg/dL Normal 0.0-1.1 [facility] Comment on above: Performed By: #### 2 631386, 1528515, 74947906, 16436227, 6991992, 3089011, 2181926 ####[address] [place] [address] Globulin (S) [Mass/Vol] 3.1 g/dL Normal 1.4-4.0 [facility] Comment on above: Performed By: #### 2 385274, 1104245, 80317681, 43499189, 9222683, 8959536, 8155752 ####[facility] [address] [place] [address] Protein [Mass/Vol] 6.9 g/dL Normal 6.0-7.8 [facility] Comment on above: Performed By: #### 2 046066, 9777397, 96793881, 02281055, 2942671, 5605006, 4483106 ####[facility] [address] [place] [address] Bilirubin.direct [Mass/Vol] mg/dL Normal 0.1-0.4 [facility] Comment on above: Performed By: #### 2 659759, 9346462, 87098820, 08234280, 4962653, 6600521, 9624528 ####[facility] [address] [place] [address] Lipase Levelon 05-21-2023 Lipase [Catalytic activity/Vol] 31 U/L Normal 13-58 [facility] Comment on above: Performed By: #### 2 136931, 0772782, 43440392, 34537245, 9941839, 2416456, 3087627 ####[facility] [address] [place] [address] Troponin 0 Hr.on 05-21-2023 Troponin I.cardiac [Mass/Vol] 2.50 pg/mL Low 10.10-27.10 [facility] Comment on above: Result Comment: The 95% CI (Confidence Interval) PPV (Positive Predictive Value) for myocardial infarction in females is 38 pg/mL, in males 51 pg/mL. The results should be used in conjunction with clinical conditions of myocardial infarction.(Access High Sensitivity Troponin I Instructions For Use, Ziggy Filmzu, May 2018) Performed By: #### 2 524298, 0434394, 65914964, 99073039, 6209254, 6286519, 9276721 ####[facility] [address] [place] [address] URINALYSISOrdered By: Jose Miguel nelson on 05-21-2023 [...] Interpretation Code Negative [facility] UA Auto SS [place].plasma/[place] .RBC (Bld) [Mass ratio] 4-20 /HPF Normal 0-3/HPF [facility] UA Auto SS Mucus Ql (Urine sed) 1+ (05/21/23 10:17 PM) Normal [facility] UA Auto SS Nitrite Ql (U) Negative (05/21/23 10:17 PM) Normal Negative [facility] UA Auto SS pH (U) 6.0 *NA* (05/21/23 10:17 PM) Invalid Interpretation Code 5.0 - 9.0 [facility] Auto SS Protein (U) [Mass/Vol] 2+ *ABN* (05/21/23 10:17 PM) Invalid Interpretation Code Negative [facility] UA Auto SS Specific gravity (U) [Rel density] >=1.030 *NA* (05/21/23 10:17 PM) Invalid Interpretation Code 1.005 - 1.030 [facility] Auto SS UA Spec Desc Clean Catch (05/21/23 10:17 PM) Normal [facility] Auto SS Urobilinogen Qn (U) 0.0260580 {Rola'U}/dL Normal 0.0 - 1.0 EU/dL [facility] UA Auto SS WBC Auto Ql (U) Negative (05/21/23 10:17 PM) Normal Negative [facility] UA Auto SS WBC LM.HPF (Urine sed) [#/Area] 0-5 /HPF Normal 0-5/HPF [facility] UA Auto SS eGFRon 05-21-2023 GFR/1.73 sq M.predicted among non-blacks MDRD (S/P/Bld) [Vol rate/Area] 120 mL/min/1.73 m2 Normal >=59 [facility] Comment on above: Order Comment: Order added by Discern Expert. Result Comment: Crawler Crane Operator lucy kidney disease could be indicated at eGFR's of less than 60 mL/min/1.73m2. Kidney failure is indicated at less than 15 mL/min/1.73m2. Performed By: #### 2 623819, 5410181, 25758128, 75301718, 5159129, 3849600, 7174318 ####[facility] [address] [place] [address] PAP [id number] 05-03-2023 C. trachomatis rRNA MAHAD+probe Ql (Cvx) Negative Invalid Interpretation Code Negative [facility] Comment on above: Performed By: #### 3 [id number] ####[facility] [address] [place] [address] Cytology report Cyto stain Doc (Cvx/Vag) Note Invalid Interpretation Code [facility] Comment on above: Result Comment: TEST S RESULT FLAG UNITS REF RANGE LAB Clinician Provided Cytology InformationSource.............EndocervixNo. of containers..01 ThinPrep VialDIAGNOSIS: 01NEGATIVE FOR INTRAEPITHELIAL LESION OR MALIGNANCY.Specimen adequacy: 01Satisfactory for evaluation. Endocervical and/or squamous metaplasticcells (endocervical component) are present.Performed by: Eliana Shea Stud Master/[place]istress (ASCP). 01Note: Note 01The Pap smear is [...] specimen resulttherefore, no HPV testing was performed. -------FLAG LEGEND:L-Low Normal,H-High Normal,LL-Alert Low,HH-Alert High<-Panic Low,>-Panic High,A-Abnormal,AA-Critical Abnormal -----Performed at:[address] [place] [address]Lmrayf French [place] MD, Performed By: #### 3 [id number] ####[facility] [address] [place] [address] N. gonorrhoeae rRNA MAHAD+probe Ql (Cvx) Negative Invalid Interpretation Code Negative [facility] Comment on above: Result Comment: Perf ormed at: [facility] [address] [id number] MD Anton HinsonPerformed at: =G [facility] [address] [id number] MD Anton Hinson Performed By: #### 3 [id number] ####[facility] [address] [place] [address] C Urineon 05-02-2023 Bacteria identified Cx Nom (U) Normal [facility] Comment on above: Performed By: #### 2 190224 ####[facility] [address] [place] [address] HIV Screen 4th Generation wR fxon 05-01-2023 HIV 1+2 Ab+HIV1 p24 Ag IA Ql Non-Reactive Invalid Interpretation Code Non Reactive [facility] Comment on above: Result Comment: HIV NegativeHIV-1/HIV-2 antibodies and HIV-1 p24 antigen were NOT detected.There is no laboratory evidence of HIV infection.Performed at: [facility]tbfjj[address] [place], [place] [id number] PhD Caroline [place] Performed By: #### 1 65848213, 27159122, 172279912, 7957726, 8977506 ####[facility] [address] [place] [address] Hep Bs Agon 05-01-2023 HBV surface Ag IA Ql Negative Invalid Interpretation Code Negative [facility] Comment on above: Result Comment: Perf ormed at: [address] [id number] PhD Caroline [place] Performed By: #### 1 13643055, 79525655, 449948242, 7496048, 6825993 ####[address] [place] [address] RPR with Conf Rfxon 05-01-20 23 Reagin Ab RPR Ql (S) Non-Reactive Invalid Interpretation Code Non Reactive [facility] Comment on above: Result Comment: Perf ormed at: [address] [id number] PhD [place] Performed By: #### 1 68009226, 52300536, 275669542, 4544031, 1642770 ####[address] [address] Rubella IgGon 05-01-2023 Rubella virus IgG Qn (S) [IU]/mL Low Immune >0.99 [facility] Comment on above: Result Comment: Non- immune <0.90Equivocal 0.90 - 0.99Immune >0.99Performed at: [address] [id number] PhD Caroline [place] Performed By: #### 1 59546643, 18531944, 725221250, 7665278, 7817570 ####[address] [place] [address] ABO/Rhon 04-30-2023 ABO/Rh Positive Invalid Interpretation Code [facility] Comment on above: Performed By: #### 2 725168, 29034050 ####[facility] [address] [place] [address] ABSCon 04-30-2023 ABSC Gel Interp Negative Normal [facility] Comment on above: Performed By: #### 2 624148, 12601243 ####[facility] [address] [place] [address] BLOOD BANKOrdered By: Diamond Junior on 04-30-2023 ABO/Rh Interp Positive Invalid Interpretation Code [facility] BB Subsection ABSC Gel Interp Negative (04/30/23 9:30 AM) Normal [facility] BB Subsection BhCG Quanton 04-30-2023 [place] [address] m[IU]/mL High 1-3 F [facility] Comment on above: Result Comment: GEST ATIONAL AGE HCG RANGE (mIU/mL) NON- <1-3 0.2-1 WEEKS 5-50 1-2 WEEKS 50-500 2-3 WEEKS 100-5,000 3-4 WEEKS 500-10,000 4-5 WEEKS 1,000-50,000 5-6 WEEKS 10,000-100,000 6-8 WEEKS 15,000-200,000 8-12 WEEKS 10,000-100,000 Performed By: #### 2 599161 ####[facility] [address] [place] [address] CBC w/Indiceson 04-30-2023 Erythrocyte distribution width (RBC) [Ratio] 13.7 % Normal 10.9-14.2 [facility] Comment on above: Performed By: #### 1 74443199, 96287429, 774690308, 3146919, 5109526 ####[facility] [address] [place] [address] Hematocrit (Bld) [Volume fraction] 40.7 % Normal 34.0-46.0 [facility] Comment on above: Performed By: #### 1 07074051, 00186316, 448868262, 1604005, 9392034 ####[facility] [address] [place] [address] Hemoglobin (Bld) [Mass/Vol] 13.8 g/dL Normal 12.0-16.0 [facility] Comment on above: Performed By: #### 1 59188370, 00544382, 502343635, 0802751, 3542649 ####[facility] [address] [place] [address] MCH (RBC) [Entitic mass] 30.5 pg Normal 27.0-34.0 [facility] Comment on above: Performed By: #### 1 13730025, 46249471, 012386948, 4213203, 1751630 ####[address] [place] [address] MCHC (RBC) [Mass/Vol] 33.9 g/dL Normal 31.4-36.0 [facility] Comment on above: Performed By: #### 1 49870585, 20444330, 577251610, 6316840, 4814959 ####[address] MCV (RBC) [Entitic vol] 89.9 fL Normal 80.0-100.0 [facility] Comment on above: Performed By: #### 1 64375713, 77561329, 740117404, 4714028, 5291722 ####[place] Platelet mean volume (Bld) [Entitic vol] 8.2 fL Normal 6.4-10.8 [facility] Comment on above: Performed By: #### 1 81672333, 33633802, 300074956, 7338426, 6953660 ####[place] [address] Platelets (Bld) [#/Vol] 279.0 E9/L Normal 150.0-500.0 [facility] Comment on above: Performed By: #### 1 01330393, 67050595, 177029768, 4697042, 4370264 ####[place] [address] RBC (Bld) [#/Vol] 4.5 E12/L Normal 4.3-5.9 [facility] Comment on above: Performed By: #### 1 81064605, 15391309, 495909447, 6780133, 2495537 ####[facility] [address] [place] [address] WBC corrected for nucl RBC Auto (Bld) [#/Vol] 5.8 E9/L Normal 4.0-11.0 [facility] Comment on above: Performed By: #### 1 31424076, 99347214, 585931892, 9745917, 9046816 ####[facility] [address] [place] [address] CHEMISTRYOrdered By: SYSTEM SYSTEM on 04-30-2023 [place] [address] m[IU]/mL High 1 - 3 mIU/mL [facility] Remisol Consent for Treatmenton 04-14 Consent for Treatment [id number]#1.00CD:12 7 Normal [facility] HEMATOLOGYOrdered By: Temi Romero on 04-30-2023 Erythrocyte distribution width (RBC) [Ratio] 13.7 % Normal 10.9 - 14.2 % [facility] HemeAutoSS Hematocrit (Bld) [Volume fraction] 40.7 % Normal 34.0 - 46.0 % [facility] HemeAutoSS Hemoglobin (Bld) [Mass/Vol] 13.8 g/dL Normal 12.0 - 16.0 gm/dL [facility]eAutoSS MCH (RBC) [Entitic mass] 30.5 pg Normal 27.0 - 34.0 pg [facility] HemeAutoSS MCHC (RBC) [Mass/Vol] 33.9 g/dL Normal 31.4 - 36.0 gm/dL [facility] HemeAutoSS MCV (RBC) [Entitic vol] 89.9 fL Normal 80.0 - 100.0 fL [facility] HemeAutoSS Platelet mean volume (Bld) [Entitic vol] 8.2 fL Normal 6.4 - 10.8 fL [facility] HemeAutoSS Platelets (Bld) [#/Vol] 279.0 E9/L Normal 150.0 - 500.0 E9/L [facility] RBC (Bld) [#/Vol] 4.5 E12/L Normal 4.3 - 5.9 E12/L [facility] HemeAutoSS WBC corrected for nucl RBC Auto (Bld) [#/Vol] 5.8 E9/L Normal 4.0 - 11.0 E9/L [facility] HemeAutoSS PAP [id number] 04-30-2023 Collection Technique BRUSH-SPATULA Normal F [facility] Comment on above: Performed By: #### 3 [id number] ####[facility] [address] [place] [address] Gynecological Body Site ENDOCERVIX Normal [facility] Comment on above: Performed By: #### 3 [id number] ####[facility] [address] [place] [address] Physician Orderon 04-30-2023 Physician Order [id number]#1.00CD:1 27 Normal [facility] Physician Order [id number]#1.00CD:1 27 Normal [facility] BhCG Quanton 04-26-2023 [place] [address] m[IU]/mL High 1-3 F [facility] Comment on above: Result Comment: GEST ATIONAL AGE HCG RANGE (mIU/mL) NON- <1-3 0.2-1 WEEKS 5-50 1-2 WEEKS 50-500 2-3 WEEKS 100-5,000 3-4 WEEKS 500-10,000 4-5 WEEKS 1,000-50,000 5-6 WEEKS 10,000-100,000 6-8 WEEKS 15,000-200,000 8-12 WEEKS 10,000-100,000 Performed By: #### 2 368837 ####[facility] [address] [place] [address] CHEMISTRYOrdered By: SYSTEM SYSTEM on 04-26-2023 [place] [address] m[IU]/mL High 1 - 3 mIU/mL [facility] Remisol Consent for Treatmenton 04-14 Consent for Treatment [id number]#1.00CD:12 7 Normal [facility] Discharge Instructionson Discharge Instructions [id number]#1.00CD:1 27 Normal [facility] ED Clinical Summaryon 2022 ED Clinical Summary Normal [facility] ED Note-Physicianon 04-26-20 ED Note-Physician Normal [facility] Comment on above: Result Comment: Elec tronically Signed By: Jos Ugalde PA-C\.br\Date and Time Signed: 04/26/23 10:59 EDT\.br\Electronically Co-Signed By: Laura Noel M.D.\.br\Date and Time Co-Signed: 04/26/23 11:01 EDT ED Patient Education Noteon 04-26-2023 ED Patient Education Note Normal [facility] ED Patient Summaryon 023 ED Patient Summary Normal [facility] UA With Cult Reflexon 2022 Bilirubin Ql (U) Negative Normal Negative [facility] Comment on above: Performed By: #### 1 [id number] ####[facility] [address] [place] [address] Clarity (U) CLEAR Normal Clear [facility] Comment on above: Performed By: #### 1 0380838 ####[facility] [address] [place] [address] Color (U) YELLOW Normal Yellow [facility] Comment on above: Performed By: #### 1 4058076 ####[facility] [address] [place] [address] Crystals LM Ql (Urine sed) Present Normal [facility] Comment on above: Performed By: #### 1 [id number] ####[facility] [address] [place] [address] Epithelial cells.squamous LM.HPF (Urine sed) [#/Area] 0-2 Normal 0-2 [facility] Comment on above: Performed By: #### 1 [id number] ####[facility] [address] [place] [address] Glucose Test strip (U) [Mass/Vol] Negative Normal Negative [facility] Comment on above: Performed By: #### 1 [id number] ####[facility] [address] [place] [address] Hemoglobin Ql (U) Negative Normal Negative [facility] Comment on above: Performed By: #### 1 [id number] ####[facility] [address] [place] [address] Ketones (U) [Mass/Vol] Negative Normal Negative [facility] Comment on above: Performed By: #### 1 [id number] ####[address] [address] [place].plasma/[place] .RBC (Bld) [Mass ratio] 0-3 Normal 0-3 [facility] Comment on above: Performed By: #### 1 [id number] ####[facility] [address] [place] [address] Mucus Ql (Urine sed) 2+ Normal [facility] Comment on above: Performed By: #### 1 [id number] ####[address] [address] Nitrite Ql (U) Negative Normal Negative [facility] Comment on above: Performed By: #### 1 8022512 ####[facility] [address] [place] [address] pH (U) 8.5 [pH] Invalid Interpretation Code 5.0-9.0 [facility] Comment on above: Performed By: #### 1 [id number] ####[address] [address] Protein (U) [Mass/Vol] Negative Normal Negative [facility] Comment on above: Performed By: #### 1 [id number] ####[address] [address] Specific gravity (U) [Rel density] 1.015 Invalid Interpretation Code 1.005-1.030 [facility] Comment on above: Performed By: #### 1 [id number] ####[facility] [address] [place] [address] Type of Urine collection method Clean Catch Normal [facility] Comment on above: Performed By: #### 1 [id number] ####[facility] [address] [place] [address] Urobilinogen Qn (U) 1.0 {Rola'U}/dL Normal 0.0-1.0 [facility] Comment on above: Performed By: #### 1 [id number] ####[facility] [address] [place] [address] WBC Auto Ql (U) Negative Normal Negative [facility] Comment on above: Performed By: #### 1 [id number] ####[place] [address] WBC LM.HPF (Urine sed) [#/Area] 0-5 Normal 0-5 [facility] Comment on above: Performed By: #### 1 [id number] ####[place] [address] URINALYSISOrdered By: An Lassiter on 04-26-2023 Bilirubin Ql (U) Negative (04/26/23 9:15 AM) Normal Negative [facility] UA Auto SS Clarity (U) Clear (04/26/23 9:15 AM) Normal Clear [facility] UA Auto SS Color (U) Yellow (04/26/23 9:15 AM) Normal Yellow [facility] UA Auto SS Crystals LM Ql (Urine sed) Present (04/26/23 9:15 AM) Normal [facility] UA Auto SS Epithelial cells.squamous LM.HPF (Urine sed) [#/Area] 0-2 /HPF Normal 0-2/HPF [facility] UA Auto SS Glucose Test strip (U) [Mass/Vol] Negative (04/26/23 9:15 AM) Normal Negative [facility] UA Auto SS Hemoglobin Ql (U) Negative (04/26/23 9:15 AM) Normal Negative [facility] UA Auto SS Ketones (U) [Mass/Vol] Negative (04/26/23 9:15 AM) Normal Negative [facility] UA Auto SS [place].plasma/[place] .RBC (Bld) [Mass ratio] 0-3 /HPF Normal 0-3/HPF [facility] UA Auto SS Mucus Ql (Urine sed) 2+ (04/26/23 9:15 AM) Normal [facility] UA Auto SS Nitrite Ql (U) Negative (04/26/23 9:15 AM) Normal Negative [facility] UA Auto SS pH (U) 8.5 *NA* (04/26/23 9:15 AM) Invalid Interpretation Code 5.0 - 9.0 [facility] UA Auto SS Protein (U) [Mass/Vol] Negative (04/26/23 9:15 AM) Normal Negative [facility] UA Auto SS Specific gravity (U) [Rel density] 1.015 *NA* (04/26/23 9:15 AM) Invalid Interpretation Code 1.005 - 1.030 [facility] UA Auto SS UA Spec Desc Clean Catch (04/26/23 9:15 AM) Normal [facility] UA Auto SS Urobilinogen Qn (U) 1.4162304 {Orla'U}/dL Normal 0.0 - 1.0 EU/dL [facility] UA Auto SS WBC Auto Ql (U) Negative (04/26/23 9:15 AM) Normal Negative [facility] UA Auto SS WBC LM.HPF (Urine sed) [#/Area] 0-5 /HPF Normal 0-5/HPF [facility] UA Auto SS US 1st Trimesteron 04-26-2023 US 1st Trimester Normal [facility] US Transvaginalon 04-26-2023 Transvaginal Normal [facility] Coding Summary.on 02-02-2023 Coding Summary. Normal [facility] Auto Diffon 01-31-2023 Basophils/100 WBC (Bld) 0.3 % Normal 0.0-2.0 [facility] Comment on above: Order Comment: Order Added by Discern Expert. Performed By: #### 2 752021, 3369388, [id number], 3795054 ####[place] [facility] [place] [address] Basophils/Leukocytes Auto (Bld) [Pure # fraction] 0.0 E9/L Normal 0.0-0.2 [facility] Comment on above: Order Comment: Order Added by Discern Expert. Performed By: #### 2 425541, 1921394, 31160141, 5376730 ####[address] [address] Eosinophils/100 WBC (Bld) 2.8 % Normal 0.0-8.0 [facility] Comment on above: Order Comment: Order Added by Discern Expert. Performed By: #### 2 998348, 3690950, 83391212, 0829038 ####[address] [address] Eosinophils/Leukocytes Auto (Bld) [Pure # fraction] 0.1 E9/L Normal 0.0-0.5 [facility] Comment on above: Order Comment: Order Added by Gisselle Expert. Performed By: #### 2 142825, 9562051, 72466371, 5620256 ####[address] [address] Lymphocytes/100 WBC (Bld) 30.0 % Normal 14.0-50.0 [facility] Comment on above: Order Comment: Order Added by Gisselle Expert. Performed By: #### 2 360260, 8648834, [id number], 9086866 ####[address] [address] Lymphocytes/Leukocytes Auto (Bld) [Pure # fraction] 1.5 E9/L Normal 1.0-4.0 [facility] Comment on above: Order Comment: Order Added by Discern Expert. Performed By: #### 2 905656, 8617900, 26492462, 3460051 ####[address] [address] Monocytes/100 WBC (Bld) 7.0 % Normal 4.0-14.0 [facility] Comment on above: Order Comment: Order Added by Gisselle Expert. Performed By: #### 2 860402, 6296502, 21763261, 9559954 ####[address] [place] [address] Monocytes/Leukocytes Auto (Bld) [Pure # fraction] 0.4 E9/L Normal 0.2-1.0 [facility] Comment on above: Order Comment: Order Added by Discern Expert. Performed By: #### 2 318163, 3268022, 62950066, 9103709 ####[address] [address] Neutrophils/100 WBC (Bld) 59.9 % Normal 36.0-75.0 [facility] Comment on above: Order Comment: Order Added by Discern Expert. Performed By: #### 2 242729, 1578185, 62921698, 1267988 ####[address] [address] Neutrophils/Leukocytes Auto (Bld) [Pure # fraction] 3.1 E9/L Normal 2.0-7.5 [facility] Comment on above: Order Comment: Order Added by Discern Expert. Performed By: #### 2 042397, 4761711, 76971218, 6088022 ####[address] [address] B hCG Qualon 01-31-2023 Beta hCG Ql Negative Normal [facility] Comment on above: Performed By: #### 2 7025695, 39691525 ####[address] [address] BMPon 01-31-2023 Creatinine [Mass/Vol] 0.8 mg/dL Normal 0.5-1.3 [facility] Comment on above: Performed By: #### 2 338488, 5530878, 88292807, 7431497 ####[address] [address] Urea nitrogen [Mass/Vol] 9 mg/dL Normal 5-21 [facility] Comment on above: Performed By: #### 2 226875, 9415258, 18838066, 0750731 ####[facility] [address] [place] [address] Urea nitrogen/Creatinine [Mass ratio] 11 No Units Normal 10-20 [facility] Comment on above: Performed By: #### 2 926109, 2126418, 16904753, 1459640 ####[facility] [address] [place] [address] Anion gap [Moles/Vol] 12 mmol/L Normal 6-16 [facility] Comment on above: Performed By: #### 2 440354, 0000834, 82667877, 0958909 ####[facility] [address] [place] [address] Calcium [Mass/Vol] 9.1 mg/dL Normal 8.9-11.1 [facility] Comment on above: Performed By: #### 2 716943, 6823331, 72096176, 8332792 ####[facility] [address] [place] [address] Chloride [Moles/Vol] 104 mmol/L Normal 101-111 [facility] Comment on above: Performed By: #### 2 644330, 6442234, 95296426, 4872409 ####[facility] [address] [place] [address] CO2 [Moles/Vol] 23 mmol/L Normal 21-31 [facility] Comment on above: Performed By: #### 2 585328, 1665328, 06606234, 3283689 ####[facility] [address] [place] [address] Glucose [Mass/Vol] 84 mg/dL Normal 55-199 [facility] Comment on above: Result Comment: If t his glucose result represents a fasting glucose, interpretation should refer to the following reference range: 55-99 mg/dL Performed By: #### 2 950852, 6378344, 74582846, 6009352 ####[facility] [address] [place] [address] Potassium [Moles/Vol] 3.5 mmol/L Normal 3.5-5.3 [facility] Comment on above: Performed By: #### 2 754009, 8190320, 53079370, 6177467 ####[address] [place] [address] Sodium [Moles/Vol] 135 mmol/L Normal 135-145 [facility] Comment on above: Performed By: #### 2 717526, 4963291, 51494468, 5899448 ####[address] [address] CBC w/ Auto Diffon 3 Erythrocyte distribution width (RBC) [Ratio] 12.9 % Normal 10.9-14.2 [facility] Comment on above: Performed By: #### 2 028402, 9410834, 01238535, 1723904 ####[address] [address] Hematocrit (Bld) [Volume fraction] 46.4 % High 34.0-46.0 [facility] Comment on above: Performed By: #### 2 288482, 0719018, 32722424, 4811122 ####[address] [address] Hemoglobin (Bld) [Mass/Vol] 15.0 g/dL Normal 12.0-16.0 [facility] Comment on above: Performed By: #### 2 565805, 3768388, 21547337, 4417442 ####[address] [address] MCH (RBC) [Entitic mass] 28.6 pg Normal 27.0-34.0 [facility] Comment on above: Performed By: #### 2 852546, 0034001, 69551125, 8107477 ####[address] [address] MCHC (RBC) [Mass/Vol] 32.3 g/dL Normal 31.4-36.0 [facility] Comment on above: Performed By: #### 2 369102, 4185606, 04883074, 8381101 ####[address] [place] [address] MCV (RBC) [Entitic vol] 88.5 fL Normal 80.0-100.0 [facility] Comment on above: Performed By: #### 2 071815, 9330145, 45500938, 2698657 ####[facility] [address] [place] [address] Platelet mean volume (Bld) [Entitic vol] 7.9 fL Normal 6.4-10.8 [facility] Comment on above: Performed By: #### 2 056810, 1371929, 22489304, 1130842 ####[address] [address] Platelets (Bld) [#/Vol] 300.0 E9/L Normal 150.0-500.0 [facility] Comment on above: Performed By: #### 2 548051, 4916174, 26059901, 6800015 ####[address] [address] RBC (Bld) [#/Vol] 5.2 E12/L Normal 4.3-5.9 [facility] Comment on above: Performed By: #### 2 531660, 1237751, 17718731, 5866852 ####[address] [address] WBC corrected for nucl RBC Auto (Bld) [#/Vol] 5.1 E9/L Normal 4.0-11.0 [facility] Comment on above: Performed By: #### 2 918820, 3131221, 72590653, 9271241 ####[address] [address] CHEMISTRYOrdered By: SYSTEM SYSTEM on 01-31-2023 Anion gap [Moles/Vol] 12 mmol/L Normal 6 - 16 mEq/L [facility] Remisol Calcium [Mass/Vol] 9.1 mg/dL Normal 8.9 - 11. 1 mg/dL [facility] Remisol Chloride [Moles/Vol] 104 mmol/L Normal 101 - 1 11 mmol/L [facility] CO2 [Moles/Vol] 23 mmol/L Normal 21 - 31 mmol/L [facility] Remisol Creatinine [Mass/Vol] 0.8 mg/dL Normal 0.5 - 1.3 mg/dL [facility] Remisol GFR/1.73 sq M.predicted among blacks MDRD (S/P/Bld) [Vol rate/Area] mL/min/1.73 m2 Normal >=59mL/min/ 1.73 m2 [facility] Chem S GFR/1.73 sq M.predicted among non-blacks MDRD (S/P/Bld) [Vol rate/Area] mL/min/1.73 m2 Normal >=59mL/min/ 1.73 m2 [facility] Chem S Glucose [Mass/Vol] 84 mg/dL Normal 55 - 199 mg/dL [facility] Potassium [Moles/Vol] 3.5 mmol/L Normal 3.5 - 5.3 mmol/L [facility] Remisol Sodium [Moles/Vol] 135 mmol/L Normal 135 - 145 mmol/L [facility] Remisol Urea nitrogen [Mass/Vol] 9 mg/dL Normal 5 - 21 mg/dL [facility] Urea nitrogen/Creatinine [Mass ratio] 11 mg/mg Normal 10 - 20 [facility] Remisol COAGULATIONOrdered By: Disha Mccarty on 01-31-2023 aPTT Coag (PPP) [Time] 31.3 s Normal 25.1 - 36.5 second(s) [facility] Auto Coag INR Coag (PPP) [Relative time] 1.1 {INR} Invalid Interpretation Code [facility] Auto Coag PT Coag (PPP) [Time] 12.3 s Normal 9.4 - 1 2.5 second(s) [facility] Auto Coag CTA Headon 01-31-2023 CTA Head Normal [facility] Consent for Treatmenton 01-13 Consent for Treatment [id number]#1.00CD:12 7 [facility] Discharge Instructionson Discharge Instructions [id number]#1.00CD:1 27 [facility] ED Clinical Summaryon 2022 ED Clinical Summary Normal Vika onofre [facility] ED Note-Physicianon 02-01-20 ED Note-Physician Normal [facility] Comment on above: Result Comment: Elec tronically Signed By: Kristian Guillermo DO.medina\Date and Time Signed: 01/31/23 14:00 EDT ED Patient Education Noteon 01-31-2023 ED Patient Education Note Normal [facility] ED Patient Summaryon 023 ED Patient Summary Normal [facility] HEMATOLOGYOrdered By: SYSTEM SYSTEM on 01-31-2023 Basophils/100 WBC (Bld) 0.3 % Normal 0.0 - 2.0 % [facility] HemeAutoSS Basophils/Leukocytes Auto (Bld) [Pure # fraction] 0.0 E9/L Normal 0.0 - 0.2 E9/L [facility] HemeAutoSS Eosinophils/100 WBC (Bld) 2.8 % Normal 0.0 - 8.0 % [facility] HemeAutoSS Eosinophils/Leukocytes Auto (Bld) [Pure # fraction] 0.1 E9/L Normal 0.0 - 0.5 E9/L [facility] HemeAutoSS Lymphocytes/100 WBC (Bld) 30.0 % Normal 14.0 - 50.0 % [facility] HemeAutoSS Lymphocytes/Leukocytes Auto (Bld) [Pure # fraction] 1.5 E9/L Normal 1.0 - 4.0 E9/L [facility] HemeAutoSS Monocytes/100 WBC (Bld) 7.0 % Normal 4.0 - 14.0 % [facility] HemeAutoSS Monocytes/Leukocytes Auto (Bld) [Pure # fraction] 0.4 E9/L Normal 0.2 - 1.0 E9/L [facility] HemeAutoSS Neutrophils/100 WBC (Bld) 59.9 % Normal 36.0 - 75.0 % [facility] HemeAutoSS Neutrophils/Leukocytes Auto (Bld) [Pure # fraction] 3.1 E9/L Normal 2.0 - 7.5 E9/L [facility] HemeAutoSS HEMATOLOGYOrdered By: Janet Reyes on 01-31-2023 Erythrocyte distribution width (RBC) [Ratio] 12.9 % Normal 10.9 - 14.2 % [facility] HemeAutoSS Hematocrit (Bld) [Volume fraction] 46.4 % High 34.0 - 46.0 % [facility] HemeAutoSS Hemoglobin (Bld) [Mass/Vol] 15.0 g/dL Normal 12.0 - 16.0 gm/dL [facility] HemeAutoSS MCH (RBC) [Entitic mass] 28.6 pg Normal 27.0 - 34.0 pg [facility] HemeAutoSS MCHC (RBC) [Mass/Vol] 32.3 g/dL Normal 31.4 - 36.0 gm/dL [facility] HemeAutoSS MCV (RBC) [Entitic vol] 88.5 fL Normal 80.0 - 100.0 fL [facility] HemeAutoSS Platelet mean volume (Bld) [Entitic vol] 7.9 fL Normal 6.4 - 10.8 fL [facility] HemeAutoSS Platelets (Bld) [#/Vol] 300.0 E9/L Normal 150.0 - 500.0 E9/L [facility] HemeAutoSS RBC (Bld) [#/Vol] 5.2 E12/L Normal 4.3 - 5.9 E12/L [facility] HemeAutoSS WBC corrected for nucl RBC Auto (Bld) [#/Vol] 5.1 E9/L Normal 4.0 - 11.0 E9/L [facility] HemeAutoSS PT & PTTon 01-31-2023 aPTT Coag (PPP) [Time] 31.3 second(s) Normal 25.1-36.5 [facility] Comment on above: Result Comment: Para [...] the same coagulation reagent and instrumentation as [facility]. Currently there are no coagulation studies available worldwide for children to 14 days, and no normal ranges. Heparin therapeutic range (represented by Anti-Factor Xa activity of 0.2 - 0.4 U/mL) corresponds to PTT of 56.6 - 109.0 sec. Performed By: #### 2 [id number], [id number] ####[facility] [address] [place] [address] INR Coag (PPP) [Relative time] 1.1 {INR} Invalid Interpretation Code [facility] Comment on above: Result Comment: INR results are specifically intended to assess patients stabilized on long-term Anticoagulation therapy suggested INR?s ?Less Intensive Anticoagulation? 2.0 ? 3.0Conventional Range 3.0 ? 4.5 Performed By: #### 2 [id number], [id number] ####[facility] [address] [place] [address] PT Coag (PPP) [Time] 12.3 second(s) Normal 9.4-12.5 [facility] Comment on above: Result Comment: 15 [...] the same coagulation reagent and instrumentation as [facility]. Currently there are no coagulation studies available worldwide for children to 14 days, and no normal ranges. Performed By: #### 2 5841151, [id number] ####[facility] [address] [place] [address] Pre-Arrival Noteon 3 Pre-Arrival Note Normal [facility] SEROLOGYOrdered By: Nova Mccarty on 01-31-2023 Beta hCG Ql Negative (01/31/23 10:14 AM) Normal [facility] Man Sero eGFRon 01-31-2023 GFR/1.73 sq M.predicted among blacks MDRD (S/P/Bld) [Vol rate/Area] mL/min/{1.73_m2} Normal >=59 [facility] Comment on above: Order Comment: Order added by Discern Expert. Result Comment: eGFR is race adjusted. AA=. Performed By: #### 2 417329, 9984326, 39178319, 0504706 ####[facility] [address] [place] [address] GFR/1.73 sq M.predicted among non-blacks MDRD (S/P/Bld) [Vol rate/Area] mL/min/{1.73_m2} Normal >=59 [facility] Comment on above: Order Comment: Order added by Discern Expert. Result Comment: Crawler Crane Operator lucy kidney disease could be indicated at eGFR's of less than 60 mL/min/1.73m2. Kidney failure is indicated at less than 15 mL/min/1.73m2. Performed By: #### 2 164606, 1310184, 31115349, 0039994 ####[facility] [address] [place] [address] Nursing Assessmenton 023 Nursing Assessment [id number]#1.00CD:1 27 Normal [facility] Coding Summary.on 10-02-2022 Coding Summary. Normal [facility] Coding Summary. Normal [facility] Delivery Summaryon Delivery Summary Normal [facility] Comment on above: Result Comment: Elec tronically Signed By: Fabiana MARION, Luis Carlos Byrd\.medina\Date and Time Signed: 09/29/22 09:25 EST General Message Officeon General Message Office Normal [facility] Insurance Correspondence Off iceon 09-28-2022 Insurance Correspondence Office [id number]#1.00CD:1 27 Normal [facility] Discharge Instructionson Discharge Instructions [id number]#1.00CD:12 7 Normal [facility] Inpatient Clinical Summaryon 09-27-2022 Inpatient Clinical Summary Normal [facility] Inpatient Patient Summaryon 09-27-2022 Inpatient Patient Summary Normal [facility] CBC w/Indiceson 09-26-2022 Erythrocyte distribution width (RBC) [Ratio] 13.1 % Normal 10.9-14.2 [facility] Comment on above: Performed By: #### 2 867815 ####[facility] [address] [place] [address] Hematocrit (Bld) [Volume fraction] 32.1 % Low 34.0-46.0 [facility] Comment on above: Performed By: #### 2 485056 ####[address] [address] Hemoglobin (Bld) [Mass/Vol] 11.1 g/dL Low 12.0-16.0 [facility] Comment on above: Performed By: #### 2 775392 ####[facility] [address] [place] [address] MCH (RBC) [Entitic mass] 30.9 pg Normal 27.0-34.0 [facility] Comment on above: Performed By: #### 2 184013 ####[facility] [address] [place] [address] MCHC (RBC) [Mass/Vol] 34.5 g/dL Normal 31.4-36.0 [facility] Comment on above: Performed By: #### 2 413420 ####[facility] [address] [place] [address] MCV (RBC) [Entitic vol] 89.7 fL Normal 80.0-100.0 [facility] Comment on above: Performed By: #### 2 299189 ####[facility] [address] [place] [address] Platelet mean volume (Bld) [Entitic vol] 10.1 fL Normal 6.4-10.8 [facility] Comment on above: Performed By: #### 2 669694 ####[facility] [address] [place] [address] Platelets (Bld) [#/Vol] 204.0 E9/L Normal 150.0-500.0 [facility] Comment on above: Performed By: #### 2 434289 ####[facility] [address] [place] [address] RBC (Bld) [#/Vol] 3.6 E12/L Low 4.3-5.9 [facility] Comment on above: Performed By: #### 2 755818 ####[facility] [address] [place] [address] WBC corrected for nucl RBC Auto (Bld) [#/Vol] 23.2 E9/L High 4.0-11.0 [facility] Comment on above: Performed By: #### 2 158128 ####[facility] [address] [place] [address] Nursing Assessmenton 022 Nursing Assessment [id number]#1.00CD:12 7 [facility] Progress Note-Physicianon Progress Note-Physician [facility] Comment on above: Result Comment: Elec tronically Signed By: Fabiana MARION, Luis Carlos Byrd\.br\Date and Time Signed: 09/26/22 08:19 EST Coding Summary.on 09-25-2022 Coding Summary. [facility] Coding Summary. [facility] Consenton 09-25-2022 Consent [id number]#1.00CD:1 27 [facility] Consent for Anesthesiaon Consent for Anesthesia [id number]#1.00CD:12 7 [facility] Discharge Instructionson Discharge Instructions [id number]#1.00CD:1 27 [facility] Help Me Grow Referralon 09-14 Help Me Grow Referral [id number]#1.00CD:12 7 Normal [facility] Recordson Records [id number]#1.00CD:12 7 Normal [facility] Progress Note-Physicianon Progress Note-Physician Normal [facility] Comment on above: Result Comment: Elec tronically Signed By: Jimmy Corcoran Jr., DO\.br\Date and Time Signed: 09/25/22 08:31 EST Progress Note-Physician Normal [facility] Comment on above: Result Comment: Elec tronically Signed By: Jimmy Corcoran Jr., DO\.br\Date and Time Signed: 09/25/22 08:31 EST UA With Cult Reflexon 2021 Bilirubin Ql (U) Negative Normal Negative [facility] Comment on above: Order Comment: Urina ry Catheter Insertion triggered Urinalysis With Culture Reflex order by discern. Performed By: #### 1 [id number] ####[facility] [address] [place] [address] Clarity (U) CLEAR Normal Clear [facility] Comment on above: Order Comment: Urina ry Catheter Insertion triggered Urinalysis With Culture Reflex order by discern. Performed By: #### 1 0730469 ####[facility] [address] [place] [address] Color (U) YELLOW Normal Yellow [facility] Comment on above: Order Comment: Urina ry Catheter Insertion triggered Urinalysis With Culture Reflex order by discern. Performed By: #### 1 5718162 ####[facility] [address] [place] [address] Epithelial cells.squamous LM.HPF (Urine sed) [#/Area] 0-2 Normal 0-2 [facility] Comment on above: Order Comment: Urina ry Catheter Insertion triggered Urinalysis With Culture Reflex order by discern. Performed By: #### 1 2783153 ####[facility] [address] [place] [address] Glucose Test strip (U) [Mass/Vol] Negative Normal Negative [facility] Comment on above: Order Comment: Urina ry Catheter Insertion triggered Urinalysis With Culture Reflex order by discern. Performed By: #### 1 8091914 ####[address] [place] [address] Hemoglobin Ql (U) Negative Normal Negative [facility] Comment on above: Order Comment: Urina ry Catheter Insertion triggered Urinalysis With Culture Reflex order by discern. Performed By: #### 1 [id number] ####[address] [address] Ketones (U) [Mass/Vol] Negative Normal Negative [facility] Comment on above: Order Comment: Urina ry Catheter Insertion triggered Urinalysis With Culture Reflex order by discern. Performed By: #### 1 [id number] ####[address] [address] [place].plasma/[place] .RBC (Bld) [Mass ratio] 0-3 Normal 0-3 [facility] Comment on above: Order Comment: Urina ry Catheter Insertion triggered Urinalysis With Culture Reflex order by discern. Performed By: #### 1 [id number] ####[address] [address] Nitrite Ql (U) Negative Normal Negative [facility] Comment on above: Order Comment: Urina ry Catheter Insertion triggered Urinalysis With Culture Reflex order by discern. Performed By: #### 1 [id number] ####[address] [address] pH (U) 7.0 [pH] Invalid Interpretation Code 5.0-9.0 [facility] Comment on above: Order Comment: Urina ry Catheter Insertion triggered Urinalysis With Culture Reflex order by discern. Performed By: #### 1 [id number] ####[address] [address] Protein (U) [Mass/Vol] Negative Normal Negative [facility] Comment on above: Order Comment: Urina ry Catheter Insertion triggered Urinalysis With Culture Reflex order by discern. Performed By: #### 1 [id number] ####[place] [address] Specific gravity (U) [Rel density] <=1.005 Invalid Interpretation Code 1.005-1.030 [facility] Comment on above: Order Comment: Urina ry Catheter Insertion triggered Urinalysis With Culture Reflex order by discern. Performed By: #### 1 [id number] ####[address] [address] Type of Urine collection method Vyas Normal [facility] Comment on above: Order Comment: Urina ry Catheter Insertion triggered Urinalysis With Culture Reflex order by discern. Performed By: #### 1 [id number] ####[place] [address] Urobilinogen Qn (U) 0.2 {Rola'U}/dL Normal 0.0-1.0 [facility] Comment on above: Order Comment: Urina ry Catheter Insertion triggered Urinalysis With Culture Reflex order by discern. Performed By: #### 1 [id number] ####[place] [id number] WBC Auto Ql (U) Negative Normal Negative [facility] Comment on above: Order Comment: Urina ry Catheter Insertion triggered Urinalysis With Culture Reflex order by discern. Performed By: #### 1 [id number] ####[address] [address] WBC LM.HPF (Urine sed) [#/Area] 0-5 Normal 0-5 [facility] Comment on above: Order Comment: Urina ry Catheter Insertion triggered Urinalysis With Culture Reflex order by discern. Performed By: #### 1 [id number] ####[address] [address] Bilirubin Ql (U) Negative Normal Negative [facility] Comment on above: Performed By: #### 1 [id number] ####[address] [address] Clarity (U) CLEAR Normal Clear [facility] Comment on above: Performed By: #### 1 [id number] ####[place] [address] [address] Color (U) YELLOW Normal Yellow [facility] Comment on above: Performed By: #### 1 [id number] ####[address] [address] Epithelial cells.squamous LM.HPF (Urine sed) [#/Area] 0-2 Normal 0-2 [facility] Comment on above: Performed By: #### 1 7523292 ####[address] [address] Glucose Test strip (U) [Mass/Vol] Negative Normal Negative [facility] Comment on above: Performed By: #### 1 [id number] ####[address] [address] Hemoglobin Ql (U) Negative Normal Negative [facility] Comment on above: Performed By: #### 1 6883975 ####[address] [address] Ketones (U) [Mass/Vol] Negative Normal Negative [facility] Comment on above: Performed By: #### 1 0672184 ####[address] [address] [place].plasma/[place] .RBC (Bld) [Mass ratio] 0-3 Normal 0-3 [facility] Comment on above: Performed By: #### 1 [id number] ####[address] [address] Nitrite Ql (U) Negative Normal Negative [facility] Comment on above: Performed By: #### 1 2987358 ####[address] [address] pH (U) 6.0 [pH] Invalid Interpretation Code 5.0-9.0 [facility] Comment on above: Performed By: #### 1 [id number] ####[address] [address] Protein (U) [Mass/Vol] Negative Normal Negative [facility] Comment on above: Performed By: #### 1 7594266 ####[address] [address] Specific gravity (U) [Rel density] <=1.005 Invalid Interpretation Code 1.005-1.030 [facility] Comment on above: Performed By: #### 1 6536651 ####[address] [address] Type of Urine collection method Clean Catch Normal [facility] Comment on above: Performed By: #### 1 [id number] ####[address] [address] Urobilinogen Qn (U) 0.2 {Rola'U}/dL Normal 0.0-1.0 [facility] Comment on above: Performed By: #### 1 6746818 ####[address] [address] WBC Auto Ql (U) Negative Normal Negative [facility] Comment on above: Performed By: #### 1 3023117 ####[address] [address] WBC LM.HPF (Urine sed) [#/Area] 0-5 Normal 0-5 [facility] Comment on above: Performed By: #### 1 9709328 ####[address] [address] Vaccinationson 09-25-2022 Vaccinations [id number]#1.00CD:1 27 Normal [facility] Vaccinations [id number]#1.00CD:1 27 Normal [facility] ABO/Rhon 09-24-2022 ABO/Rh Positive Invalid Interpretation Code [facility] Comment on above: Performed By: #### 1 [id number], [id number], [id number], [id number] ####[address] [address] ABO/Rh History Checkon 09-24 ABO/Rh History Check Verified Hx Blood Type Normal [facility] Comment on above: Performed By: #### 1 [id number], [id number], [id number], [id number] ####[facility] [address] [place] [address] ABSCon 09-24-2022 ABSC Gel Interp Negative Normal [facility] Comment on above: Performed By: #### 1 8986825, [id number], [id number], [id number] ####[facility] [address] [place] [address] Blood Bank ID#on 09-24-2022 BBID# [id number] Invalid Interpretation Code [facility] Comment on above: Performed By: #### 1 [id number], [id number], [id number], [id number] ####[facility] [address] [place] [address] CBC w/Indiceson 09-24-2022 Erythrocyte distribution width (RBC) [Ratio] 13.0 % Normal 10.9-14.2 [facility] Comment on above: Performed By: #### 2 500910 ####[facility] [address] [place] [address] Hematocrit (Bld) [Volume fraction] 38.0 % Normal 34.0-46.0 [facility] Comment on above: Performed By: #### 2 766650 ####[facility] [address] [place] [address] Hemoglobin (Bld) [Mass/Vol] 12.8 g/dL Normal 12.0-16.0 [facility] Comment on above: Performed By: #### 2 990947 ####[facility] [address] [place] [address] MCH (RBC) [Entitic mass] 31.3 pg Normal 27.0-34.0 [facility] Comment on above: Performed By: #### 2 528939 ####[facility] [address] [place] [address] MCHC (RBC) [Mass/Vol] 33.7 g/dL Normal 31.4-36.0 [facility] Comment on above: Performed By: #### 2 523208 ####[address] [address] MCV (RBC) [Entitic vol] 92.9 fL Normal 80.0-100.0 [facility] Comment on above: Performed By: #### 2 992658 ####[address] [address] Platelet mean volume (Bld) [Entitic vol] 9.8 fL Normal 6.4-10.8 [facility] Comment on above: Performed By: #### 2 100176 ####[address] [address] Platelets (Bld) [#/Vol] 238.0 E9/L Normal 150.0-500.0 [facility] Comment on above: Performed By: #### 2 606142 ####[address] [address] RBC (Bld) [#/Vol] 4.1 E12/L Low 4.3-5.9 [facility] Comment on above: Performed By: #### 2 824713 ####[address] [address] WBC corrected for nucl RBC Auto (Bld) [#/Vol] 12.8 E9/L High 4.0-11.0 [facility] Comment on above: Performed By: #### 2 271346 ####[address] [address] Consent for Treatmenton 09-14 Consent for Treatment [id number]#1.00CD:12 7 Normal [facility] Consent for Treatment [id number]#1.00CD:1 27 Normal [facility] Consent for Treatmenton Consent for Treatment [id number]#1.00CD:12 7 [facility] Discharge Instructionson Discharge Instructions [id number]#1.00CD:12 7 [facility] Inpatient Clinical Summaryon 09-22-2022 Inpatient Clinical Summary Normal [facility] Inpatient Patient Summaryon 09-22-2022 Inpatient Patient Summary [facility] Insurance Correspondence Off ice09-22-2022 Insurance Correspondence Office [id number]#1.00CD: 127 [facility] Nursing Assessmenton 022 Nursing Assessment [id number]#1.00CD:1 27 [facility] Nursing Assessment [id number]#1.00CD:12 7 [facility] Discharge Instructionson Discharge Instructions [id number]#1.00CD:127 [facility] Inpatient Clinical Summaryon 09-20-2022 Inpatient Clinical Summary [facility] Inpatient Patient Summaryon 09-20-2022 Inpatient Patient Summary [facility] Insurance Correspondence Off ice09-20-2022 Insurance Correspondence Office [id number]#1.00CD:127 [facility] Consent for Treatmenton Consent for Treatment [id number]#1.00CD:12 7 [facility] Discharge Instructionson Discharge Instructions [id number]#1.00CD:1 27 [facility] Inpatient Clinical Summaryon 09-19-2022 Inpatient Clinical Summary [facility] Inpatient Patient Summaryon 09-19-2022 Inpatient Patient Summary [facility] Insurance Correspondenceon 11-20-2021 Insurance Correspondence [id number]#1.00CD:1 27 Normal [facility] UA With Cult Reflexon 2021 Bilirubin Ql (U) Negative Normal Negative [facility] Comment on above: Performed By: #### 1 [id number] ####[facility] [address] [place] [address] Clarity (U) CLEAR Normal Clear [facility] Comment on above: Performed By: #### 1 2554654 ####[facility] [address] [place] [address] Color (U) YELLOW Normal Yellow [facility] Comment on above: Performed By: #### 1 1360956 ####[address] [address] Epithelial cells.squamous LM.HPF (Urine sed) [#/Area] 0-2 Normal 0-2 [facility] Comment on above: Performed By: #### 1 3181111 ####[facility] [address] [place] [address] Glucose Test strip (U) [Mass/Vol] Negative Normal Negative [facility] Comment on above: Performed By: #### 1 2862066 ####[facility] [address] [place] [address] Hemoglobin Ql (U) Negative Normal Negative [facility] Comment on above: Performed By: #### 1 8116593 ####[facility] [address] [place] [address] Ketones (U) [Mass/Vol] Negative Normal Negative [facility] Comment on above: Performed By: #### 1 3501024 ####[address] [address] [place].plasma/[place] .RBC (Bld) [Mass ratio] 0-3 Normal 0-3 [facility] Comment on above: Performed By: #### 1 0545066 ####[facility] [address] [place] [address] Nitrite Ql (U) Negative Normal Negative [facility] Comment on above: Performed By: #### 1 5186170 ####[facility] [address] [place] [address] pH (U) 7.0 [pH] Invalid Interpretation Code 5.0-9.0 [facility] Comment on above: Performed By: #### 1 9363155 ####[facility] [address] [place] [address] Protein (U) [Mass/Vol] Negative Normal Negative [facility] Comment on above: Performed By: #### 1 6841420 ####[facility] [address] [place] [address] Specific gravity (U) [Rel density] <=1.005 Invalid Interpretation Code 1.005-1.030 [facility] Comment on above: Performed By: #### 1 5736874 ####[address] [address] Type of Urine collection method Clean Catch Normal [facility] Comment on above: Performed By: #### 1 8874832 ####[facility] [address] [place] [address] Urobilinogen Qn (U) 0.2 {Rola'U}/dL Normal 0.0-1.0 [facility] Comment on above: Performed By: #### 1 7695829 ####[facility] [address] [place] [address] WBC Auto Ql (U) Negative Normal Negative [facility] Comment on above: Performed By: #### 1 [id number] ####[facility] [address] [place] [address] WBC LM.HPF (Urine sed) [#/Area] 0-5 Normal 0-5 [facility] Comment on above: Performed By: #### 1 8592668 ####[facility] [address] [place] [address] URINALYSISOrdered By: Jeanette Castle on 09-19-2022 Bilirubin Ql (U) Negative (09/19/22 1:44 AM) Normal Negative [facility] UA Auto SS Clarity (U) Clear (09/19/22 1:44 AM) Normal Clear [facility] UA Auto SS Color (U) Yellow (09/19/22 [...] AM) Normal Negative [facility] UA Auto SS [place].plasma/[place] .RBC (Bld) [Mass ratio] 0-3 /HPF Normal 0-3/HPF [facility] UA Auto SS Nitrite Ql (U) Negative (09/19/22 1:44 AM) Normal Negative [facility] UA Auto SS pH (U) 7.0 *NA* (09/19/22 1:44 AM) Invalid Interpretation Code 5.0 - 9.0 [facility] Auto SS Protein (U) [Mass/Vol] Negative (09/19/22 1:44 AM) Normal Negative [facility] UA Auto SS Specific gravity (U) [Rel density] <=1.005 *NA* (09/19/22 1:44 AM) Invalid Interpretation Code 1.005 - 1.030 [facility] UA Auto SS UA Spec Desc Clean Catch (09/19/22 1:44 AM) Normal [facility] Auto SS Urobilinogen Qn (U) 0.5166517 {Rola'U}/dL Normal 0.0 - 1.0 EU/dL [facility] UA Auto SS WBC Auto Ql (U) Negative (09/19/22 1:44 AM) Normal Negative [facility] UA Auto SS WBC LM.HPF (Urine sed) [#/Area] 0-5 /HPF Normal 0-5/HPF [facility] UA Auto SS Coding Summary.on 09-18-2022 Coding Summary. Normal [facility] Nursing Assessmenton 022 Nursing Assessment [id number]#1.00CD:12 7 Normal [facility] Coding Summary.on 09-15-2022 Coding Summary. Normal [facility] Coding Summary.on 09-14-2022 Coding Summary. Normal [facility] Consent for Treatmenton Consent for Treatment [id number]#1.00CD:12 [facility] Consent for Treatment [id number]#1.00CD:12 7 Normal [facility] Discharge Instructionson Discharge Instructions [id number]#1.00CD:12 7 [facility] Inpatient Clinical Summaryon 09-14-2022 Inpatient Clinical Summary Normal [facility] Inpatient Patient Summaryon 09-14-2022 Inpatient Patient Summary [facility] Insurance Correspondence Off iceon 09-14-2022 Insurance Correspondence Office [id number]#1.00CD:12 7 [facility] Nursing Assessmenton 022 Nursing Assessment [id number]#1.00CD:1 27 Normal [facility] UA With Cult Reflexon 2021 Bacteria LM Ql (Urine sed) TRACE Normal Trace [facility] Comment on above: Performed By: #### 1 [id number] ####[facility] [address] [place] [address] Bilirubin Ql (U) Negative Normal Negative [facility] Comment on above: Performed By: #### 1 [id number] ####[facility] [address] [place] [address] Clarity (U) CLEAR Normal Clear [facility] Comment on above: Performed By: #### 1 6555835 ####[facility] [address] [place] [address] Color (U) YELLOW Normal Yellow [facility] Comment on above: Performed By: #### 1 4674153 ####[address] [address] Crystals LM Ql (Urine sed) Present Normal [facility] Comment on above: Performed By: #### 1 5597395 ####[address] [address] Epithelial cells.squamous LM.HPF (Urine sed) [#/Area] 0-2 Normal 0-2 [facility] Comment on above: Performed By: #### 1 3937243 ####[address] [address] Glucose Test strip (U) [Mass/Vol] Negative Normal Negative [facility] Comment on above: Performed By: #### 1 [id number] ####[address] [address] Hemoglobin Ql (U) Negative Normal Negative [facility] Comment on above: Performed By: #### 1 9968013 ####[address] [address] Ketones (U) [Mass/Vol] Negative Normal Negative [facility] Comment on above: Performed By: #### 1 7683666 ####[address] [address] [place].plasma/[place] .RBC (Bld) [Mass ratio] 0-3 Normal 0-3 [facility] Comment on above: Performed By: #### 1 [id number] ####[address] [address] Mucus Ql (Urine sed) TRACE Normal [facility] Comment on above: Performed By: #### 1 [id number] ####[address] [address] Nitrite Ql (U) Negative Normal Negative [facility] Comment on above: Performed By: #### 1 3902057 ####[address] [address] pH (U) 6.0 [pH] Invalid Interpretation Code 5.0-9.0 [facility] Comment on above: Performed By: #### 1 [id number] ####[facility] [address] [place] [address] Protein (U) [Mass/Vol] Negative Normal Negative [facility] Comment on above: Performed By: #### 1 5959599 ####[facility] [address] [place] [address] Specific gravity (U) [Rel density] <=1.005 Invalid Interpretation Code 1.005-1.030 [facility] Comment on above: Performed By: #### 1 6096165 ####[address] [address] Type of Urine collection method Random Urine Normal [facility] Comment on above: Performed By: #### 1 7999178 ####[address] [address] Urobilinogen Qn (U) 0.2 {Rola'U}/dL Normal 0.0-1.0 [facility] Comment on above: Performed By: #### 1 7847949 ####[facility] [address] [place] [address] WBC Auto Ql (U) TRACE Abnormal Negative [facility] Comment on above: Performed By: #### 1 3805450 ####[facility] [address] [place] [address] WBC LM.HPF (Urine sed) [#/Area] 0-5 Normal 0-5 [facility] Comment on above: Performed By: #### 1 0686127 ####[address] [address] URINALYSISOrdered By: An Lassiter on 09-14-2022 Bacteria LM Ql (Urine sed) Trace /HPF Normal Trace/HPF [facility] UA Auto SS Bilirubin Ql (U) Negative (09/14/22 9:25 AM) Normal Negative [facility] UA Auto SS Clarity (U) Clear (09/14/22 9:25 AM) Normal Clear [facility] UA Auto SS Color (U) Yellow (09/14/22 9:25 AM) Normal Yellow [facility] UA Auto SS Crystals LM Ql (Urine sed) Present (09/14/22 9:25 AM) Normal [facility] UA Auto SS Epithelial cells.squamous LM.HPF (Urine sed) [#/Area] 0-2 /HPF Normal 0-2/HPF [facility] UA Auto SS Glucose Test strip (U) [Mass/Vol] Negative (09/14/22 9:25 AM) Normal Negative [facility] UA Auto SS Hemoglobin Ql (U) Negative (09/14/22 9:25 AM) Normal Negative [facility] UA Auto SS Ketones (U) [Mass/Vol] Negative (09/14/22 9:25 AM) Normal Negative [facility] UA Auto SS [place].plasma/[place] .RBC (Bld) [Mass ratio] 0-3 /HPF Normal 0-3/HPF [facility] UA Auto SS Mucus Ql (Urine sed) Trace (09/14/22 9:25 AM) Normal [facility] UA Auto SS Nitrite Ql (U) Negative (09/14/22 9:25 AM) Normal Negative [facility] UA Auto SS pH (U) 6.0 *NA* (09/14/22 9:25 AM) Invalid Interpretation Code 5.0 - 9.0 [facility] [place] Auto SS Protein (U) [Mass/Vol] Negative (09/14/22 9:25 AM) Normal Negative [facility] UA Auto SS Specific gravity (U) [Rel density] <=1.005 *NA* (09/14/22 9:25 AM) Invalid Interpretation Code 1.005 - 1.030 [facility] [place] Auto SS UA Spec Desc Random Urine (09/14/22 9:25 AM) Normal [facility] [place]A Auto SS Urobilinogen Qn (U) 0.2469358 {Rola'U}/dL Normal 0.0 - 1.0 EU/dL [facility] UA Auto SS WBC Auto Ql (U) Trace *ABN* (09/14/22 9:25 AM) Invalid Interpretation Code Negative [facility] UA Auto SS WBC LM.HPF (Urine sed) [#/Area] 0-5 /HPF Normal 0-5/HPF [facility] UA Auto SS Coding Summary.on 09-12-2022 Coding Summary. Normal [facility] Consent for Treatmenton 08-16 Consent for Treatment [id number]#1.00CD:12 7 Normal [facility] Discharge Instructionson Discharge Instructions [id number]#1.00CD:12 7 Normal [facility] Discharge Instructions [id number]#1.00CD:1 27 Normal [facility] Inpatient Clinical Summaryon 09-12-2022 Inpatient Clinical Summary Normal [facility] Inpatient Patient Summaryon 09-12-2022 Inpatient Patient Summary Normal [facility] Insurance Correspondenceon 11-12-2021 Insurance Correspondence [id number]#1.00CD:12 7 Normal [facility] Insurance Correspondence Off iceon 09-12-2022 Insurance Correspondence Office [id number]#1.00CD:1 27 [facility] Nursing Assessmenton 022 Nursing Assessment [id number]#1.00CD:1 27 Normal [facility] UA With Cult Reflexon 2021 Bilirubin Ql (U) Negative Normal Negative [facility] Comment on above: Performed By: #### 1 [id number] ####[facility] [address] [place] [address] Clarity (U) CLEAR Normal Clear [facility] Comment on above: Performed By: #### 1 [id number] ####[facility] [address] [place], [place] [address] Color (U) YELLOW Normal Yellow [facility] Comment on above: Performed By: #### 1 6452839 ####[facility] [address] [place] [address]35[address] Crystals LM Ql (Urine sed) Present Normal [facility] Comment on above: Performed By: #### 1 6347730 ####[facility] [address] [place], [place] [address] Epithelial cells.squamous LM.HPF (Urine sed) [#/Area] 3-4 Normal 0-2 [facility] Comment on above: Performed By: #### 1 7799477 ####[facility] [address] [place] [address] Glucose Test strip (U) [Mass/Vol] Negative Normal Negative [facility] Comment on above: Performed By: #### 1 6048192 ####[facility] [address] [place] [address] Hemoglobin Ql (U) Negative Normal Negative [facility] Comment on above: Performed By: #### 1 9095548 ####[place] [address] [place] [address] Ketones (U) [Mass/Vol] Negative Normal Negative [facility] Comment on above: Performed By: #### 1 5456726 ####[address] [address] [place].plasma/[place] .RBC (Bld) [Mass ratio] 0-3 Normal 0-3 [facility] Comment on above: Performed By: #### 1 1622470 ####[facility] [address] [place] [address] Nitrite Ql (U) Negative Normal Negative [facility] Comment on above: Performed By: #### 1 7173050 ####[address] [place] [address] pH (U) 6.0 [pH] Invalid Interpretation Code 5.0-9.0 [facility] Comment on above: Performed By: #### 1 6124808 ####[place] [address] [place] [address] Protein (U) [Mass/Vol] Negative Normal Negative [facility] Comment on above: Performed By: #### 1 8395426 ####[place] [address] [place] [address] Specific gravity (U) [Rel density] 1.010 Invalid Interpretation Code 1.005-1.030 [facility] Comment on above: Performed By: #### 1 5277066 ####[place] [place] [id number] Type of Urine collection method Clean Catch Normal [facility] Comment on above: Performed By: #### 1 [id number] ####[place] [id number] Urobilinogen Qn (U) 0.2 {Rola'U}/dL Normal 0.0-1.0 [facility] Comment on above: Performed By: #### 1 [id number] ####[place] [id number] WBC Auto Ql (U) Negative Normal Negative [facility] Comment on above: Performed By: #### 1 [id number] ####[place] [id number] WBC LM.HPF (Urine sed) [#/Area] 0-5 Normal 0-5 [facility] Comment on above: Performed By: #### 1 [id number] ####[place] [id number] URINALYSISOrdered By: Jose Miguel nelson on 09-12-2022 Bilirubin Ql (U) Negative (09/12/22 8:15 PM) Normal Negative [facility] Auto SS Clarity (U) Clear (09/12/22 8:15 PM) Normal Clear [facility] UA Auto SS Color (U) Yellow (09/12/22 8:15 PM) Normal Yellow [facility] UA Auto SS Crystals LM Ql (Urine sed) Present (09/12/22 8:15 PM) Normal [facility] Auto SS Epithelial cells.squamous LM.HPF (Urine sed) [#/Area] 3-4 /HPF Normal 0-2/HPF [facility] UA Auto SS Glucose Test strip (U) [Mass/Vol] Negative (09/12/22 8:15 PM) Normal Negative [facility] UA Auto SS Hemoglobin Ql (U) Negative (09/12/22 8:15 PM) Normal Negative [facility] UA Auto SS Ketones (U) [Mass/Vol] Negative (09/12/22 8:15 PM) Normal Negative [facility] UA Auto SS [place].plasma/[place] .RBC (Bld) [Mass ratio] 0-3 /HPF Normal 0-3/HPF [facility] UA Auto SS Nitrite Ql (U) Negative (09/12/22 8:15 PM) Normal Negative [facility] U[facility] Auto SS pH (U) 6.0 *NA* (09/12/22 8:15 PM) Invalid Interpretation Code 5.0 - 9.0 [facility] UA Auto SS Protein (U) [Mass/Vol] Negative (09/12/22 8:15 PM) Normal Negative [facility] UA Auto SS Specific gravity (U) [Rel density] 1.010 *NA* (09/12/22 8:15 PM) Invalid Interpretation Code 1.005 - 1.030 [facility] UA Auto SS UA Spec Desc Clean Catch (09/12/22 8:15 PM) Normal [facility] UA Auto SS Urobilinogen Qn (U) 0.1511843 {Rola'U}/dL Normal 0.0 - 1.0 EU/dL [facility] UA Auto SS WBC Auto Ql (U) Negative (09/12/22 8:15 PM) Normal Negative [facility] UA Auto SS WBC LM.HPF (Urine sed) [#/Area] 0-5 /HPF Normal 0-5/HPF [facility] UA Auto SS Coding Summary.on 09-11-2022 Coding Summary. Normal [facility] Consent for Treatmenton 08-16 Consent for Treatment [id number]#[id number]:12 7 Normal [facility] Discharge Instructionson Discharge Instructions [id number]#1.00CD:1 27 Normal [facility] Inpatient Clinical Summaryon 09-08-2022 Inpatient Clinical Summary Normal [facility] Inpatient Patient Summaryon 09-08-2022 Inpatient Patient Summary Normal [facility] Coding Summary.on 09-06-2022 Coding Summary. Normal [facility] Discharge Instructionson Discharge Instructions [id number]#[id number]:1 27 Normal [facility] ED Clinical Summaryon 2021 ED Clinical Summary Normal [facility] ED Note-Nursingon 11-23-2022 ED Note-Nursing pt given d/c instruc tions and educated on importance of follow up. pt educated on new medications. pt verbalized understanding of instructions and readiness for d/c. pt walked self ambulatory to waiting room in stable condition Normal [facility] ED Patient Education Noteon 09-06-2022 ED Patient Education Note Normal [facility] ED Patient Summaryon 022 ED Patient Summary Normal [facility] XR Chest Single Viewon 09-06 XR Chest Single View Normal [facility] Auto Diffon 09-05-2022 Basophils/100 WBC (Bld) 1.0 % Normal 0.0-2.0 [facility] Comment on above: Order Comment: Order Added by Discern Expert. Performed By: #### 2 946131, 57943140, 34710100, 3647003, 91089219, 61648994, 3275388 ####[facility] [address] [place] [address] Basophils/Leukocytes Auto (Bld) [Pure # fraction] 0.1 E9/L Normal 0.0-0.2 [facility] Comment on above: Order Comment: Order Added by Discern Expert. Performed By: #### 2 486286, 11689364, 52339581, 6799638, 45539422, 91582212, 9755601 ####[facility] [address] [place] [address] Eosinophils/100 WBC (Bld) 1.4 % Normal 0.0-8.0 [facility] Comment on above: Order Comment: Order Added by Discern Expert. Performed By: #### 2 025902, 50622122, 91572602, 7280460, 72998733, 05947010, 3016386 ####[facility] [address] [place] [address] Eosinophils/Leukocytes Auto (Bld) [Pure # fraction] 0.2 E9/L Normal 0.0-0.5 [facility] Comment on above: Order Comment: Order Added by Discern Expert. Performed By: #### 2 827060, 91681759, 09944896, 4395841, 20138630, 07520199, 8125220 ####[address] [address] Lymphocytes/100 WBC (Bld) 18.8 % Normal 14.0-50.0 [facility] Comment on above: Order Comment: Order Added by Discern Expert. Performed By: #### 2 924637, 60255415, 65577354, 2873008, 43308000, 41159122, 6119189 ####[place] [address] [place] [address] Lymphocytes/Leukocytes Auto (Bld) [Pure # fraction] 2.0 E9/L Normal 1.0-4.0 [facility] Comment on above: Order Comment: Order Added by Discern Expert. Performed By: #### 2 767210, 12570284, 41107134, 2270031, 18333399, 87547559, 3756713 ####[address] [address] Monocytes/100 WBC (Bld) 6.8 % Normal 4.0-14.0 [facility] Comment on above: Order Comment: Order Added by Discern Expert. Performed By: #### 2 054198, 04263670, 56016309, 8782034, 98541500, 55205221, 1118092 ####[address] [address] Monocytes/Leukocytes Auto (Bld) [Pure # fraction] 0.7 E9/L Normal 0.2-1.0 [facility] Comment on above: Order Comment: Order Added by Discern Expert. Performed By: #### 2 281375, 44731156, 58556387, 2331625, 85332960, 67493448, 1170987 ####[address] [address] Neutrophils/100 WBC (Bld) 72.0 % Normal 36.0-75.0 [facility] Comment on above: Order Comment: Order Added by Discern Expert. Performed By: #### 2 549266, 18106228, 50650487, 7868040, 12889527, 11631555, 5641339 ####[facility] [address] [place] [address] Neutrophils/Leukocytes Auto (Bld) [Pure # fraction] 7.8 E9/L High 2.0-7.5 [facility] Comment on above: Order Comment: Order Added by Discern Expert. Performed By: #### 2 099472, 91635640, 85134858, 5940097, 47421295, 38126914, 5978085 ####[facility] [address] [place] [address] BMPon 09-05-2022 Creatinine [Mass/Vol] 0.7 mg/dL Normal 0.5-1.3 [facility] Comment on above: Performed By: #### 2 620884, 92194407, 08316359, 1407278, 12575059, 26698158, 5972765 ####[facility] [address] [place] [address] Urea nitrogen [Mass/Vol] 7 mg/dL Normal 5-21 [facility] Comment on above: Performed By: #### 2 249157, 89482409, 44422228, 0014703, 04097764, 95378251, 0550335 ####[facility] [address] [place] [address] Urea nitrogen/Creatinine [Mass ratio] 10 No Units Normal 10-20 [facility] Comment on above: Performed By: #### 2 351057, 63639902, 19721402, 4039530, 05433691, 81504415, 5949033 ####[facility] [address] [place] [address] Anion gap [Moles/Vol] 10 mmol/L Normal 6-16 [facility] Comment on above: Performed By: #### 2 848233, 14818830, 93788194, 8197610, 47975880, 50177440, 2362187 ####[facility] [address] [place] [address] Calcium [Mass/Vol] 8.8 mg/dL Low 8.9-11.1 [facility] Comment on above: Performed By: #### 2 316870, 24116953, 92975147, 7522821, 23350830, 49223557, 2160529 ####[facility] [address] [place] [address] Chloride [Moles/Vol] 102 mmol/L Normal 101-111 [facility] Comment on above: Performed By: #### 2 599250, 51218324, 13024892, 4047207, 38517942, 63257469, 2810172 ####[facility] [address] [place] [address] CO2 [Moles/Vol] 22 mmol/L Normal 21-31 [facility] Comment on above: Performed By: #### 2 482534, 54838659, 59051638, 3794265, 84919379, 62488792, 0177181 ####[facility] [address] [place] [address] Glucose [Mass/Vol] 87 mg/dL Normal 55-199 [facility] Comment on above: Result Comment: If t his glucose result represents a fasting glucose, interpretation should refer to the following reference range: 55-99 mg/dL Performed By: #### 2 166937, 96177036, 01664834, 6417404, 21410850, 35064182, 0013527 ####[facility] [address] [place] [address] Potassium [Moles/Vol] 3.3 mmol/L Low 3.5-5.3 [facility] Comment on above: Performed By: #### 2 709464, 25259960, 99923535, 4261752, 11123418, 23805139, 1744890 ####[facility] [address] [place] [address] Sodium [Moles/Vol] 131 mmol/L Low 135-145 [facility] Comment on above: Performed By: #### 2 911507, 63013295, 20060556, 9823943, 38696621, 66223224, 0693908 ####[facility] [address] [place] [address] BNPon 09-05-2022 Int Ctr BNP Pass Normal [facility] Comment on above: Performed By: #### 2 343293, 10256109, 15528088, 6235373, 63471910, 82384105, 0514139 ####[facility] [address] [place] [address] Natriuretic peptide B (Bld) [Mass/Vol] 8 pg/mL Normal 5-80 [facility] Comment on above: Performed By: #### 2 452134, 79644250, 89857013, 7784050, 96317057, 06217368, 0590459 ####[address] [address] CBC w/ Auto Diffon Erythrocyte distribution width (RBC) [Ratio] 12.7 % Normal 10.9-14.2 [facility] Comment on above: Performed By: #### 2 389620, 30168625, 72747302, 1396883, 33853407, 93354603, 4457858 ####[address] [address] Hematocrit (Bld) [Volume fraction] 34.2 % Normal 34.0-46.0 [facility] Comment on above: Performed By: #### 2 488417, 80775290, 20283264, 3800219, 48135240, 47931964, 5309973 ####[place] [address] [place] [address] Hemoglobin (Bld) [Mass/Vol] 12.3 g/dL Normal 12.0-16.0 [facility] Comment on above: Performed By: #### 2 158544, 89072592, 07690337, 7220071, 93588994, 13571740, 8457419 ####[facility] [address] [place] [address] MCH (RBC) [Entitic mass] 31.8 pg Normal 27.0-34.0 [facility] Comment on above: Performed By: #### 2 640664, 39712523, 99039528, 2509712, 57275574, 34893210, 6676386 ####[address] [address] MCHC (RBC) [Mass/Vol] 35.9 g/dL Normal 31.4-36.0 [facility] Comment on above: Performed By: #### 2 234998, 16775885, 36547175, 1597592, 15074493, 69215421, 9662856 ####[address] [address] MCV (RBC) [Entitic vol] 88.7 fL Normal 80.0-100.0 [facility] Comment on above: Performed By: #### 2 560093, 70825610, 06396217, 9547663, 12814853, 00899876, 8621003 ####[address] [address] Platelet mean volume (Bld) [Entitic vol] 9.8 fL Normal 6.4-10.8 [facility] Comment on above: Performed By: #### 2 685967, 66962707, 53522172, 8810473, 73285449, 58988538, 5810463 ####[address] [address] Platelets (Bld) [#/Vol] 215.0 E9/L Normal 150.0-500.0 [facility] Comment on above: Performed By: #### 2 031505, 64453649, 50034227, 8585589, 51980983, 56681028, 4052635 ####[address] [address] RBC (Bld) [#/Vol] 3.9 E12/L Low 4.3-5.9 [facility] Comment on above: Performed By: #### 2 064735, 92374880, 94424835, 4596895, 99711720, 81237427, 2436322 ####[facility] [address] [place] [address] WBC corrected for nucl RBC Auto (Bld) [#/Vol] 10.9 E9/L Normal 4.0-11.0 [facility] Comment on above: Result Comment: Slid e reviewed by ts. Performed By: #### 2 607277, 75801106, 78531694, 4656164, 07551137, 92087990, 3526954 ####[facility] [address] [place] [address] CHEMISTRYOrdered By: SYSTEM SYSTEM on 09-05-2022 Anion gap [Moles/Vol] 10 mmol/L Normal 6 - 16 mEq/L [facility] Calcium [Mass/Vol] 8.8 mg/dL Low 8.9 - 11. 1 mg/dL [facility] Chloride [Moles/Vol] 102 mmol/L Normal 101 - 1 11 mmol/L [facility] CO2 [Moles/Vol] 22 mmol/L Normal 21 - 31 mmol/L [facility] Creatinine [Mass/Vol] 0.7 mg/dL Normal 0.5 - 1.3 mg/dL [facility] GFR/1.73 sq M.predicted among blacks MDRD (S/P/Bld) [Vol rate/Area] mL/min/1.73 m2 Normal >=59mL/min/ 1.73 m2 [facility] Chem S GFR/1.73 sq M.predicted among non-blacks MDRD (S/P/Bld) [Vol rate/Area] mL/min/1.73 m2 Normal >=59mL/min/ 1.73 m2 [facility] Chem S Glucose [Mass/Vol] 87 mg/dL Normal 55 - 199 mg/dL [facility] Potassium [Moles/Vol] 3.3 mmol/L Low 3.5 - 5.3 mmol/L [facility] Remisol Sodium [Moles/Vol] 131 mmol/L Low 135 - 145 mmol/L [facility] Troponin I.cardiac [Mass/Vol] 4.70 pg/mL Low 10.10 - 27.10 pg/mL [facility] Remisol Urea nitrogen [Mass/Vol] 7 mg/dL Normal 5 - 21 mg/dL [facility] Remisol Urea nitrogen/Creatinine [Mass ratio] 10 mg/mg Normal 10 - 20 [facility] Remisol CHEMISTRYOrdered By: Temi hayden on 09-05-2022 Natriuretic peptide B (Bld) [Mass/Vol] 8 pg/mL Normal 5 - 80 pg/mL [facility] HemeManSS COAGULATIONOrdered By: Yamile Li on 09-05-2022 aPTT Coag (PPP) [Time] 27.1 s Normal 25.1 - 36.5 second(s) [facility] Auto Coag INR Coag (PPP) [Relative time] 0.9 {INR} Invalid Interpretation Code [facility] Auto Coag PT Coag (PPP) [Time] 10.3 s Normal 9.4 - 1 2.5 second(s) [facility] Auto Coag Consent for Treatmenton 08-16 Consent for Treatment [id number]#[id number]:12 7 Normal [facility] ED Note-Nursingon 09-05-2022 ED Note-Nursing Normal [facility] ED Note-Physicianon 09-05-20 ED Note-Physician Normal [facility] Comment on above: Result Comment: Elec tronically Signed By: Gopi Rodriguez DO\Patriciabr\Date and Time Signed: 09/05/22 21:46 EST Group B Strep by PCRon 09-05 Group B Strep colonization by PCR Negative Normal Negative [facility] Comment on above: Performed By: #### 4 [id number] ####[facility] [address] [place] [address] HEMATOLOGYOrdered By: SYSTEM SYSTEM on 09-05-2022 Basophils/100 WBC (Bld) 1.0 % Normal 0.0 - 2.0 % [facility] HemeAutoSS Basophils/Leukocytes Auto (Bld) [Pure # fraction] 0.1 E9/L Normal 0.0 - 0.2 E9/L [facility] HemeAutoSS Eosinophils/100 WBC (Bld) 1.4 % Normal 0.0 - 8.0 % [facility] HemeAutoSS Eosinophils/Leukocytes Auto (Bld) [Pure # fraction] 0.2 E9/L Normal 0.0 - 0.5 E9/L [facility] HemeAutoSS Lymphocytes/100 WBC (Bld) 18.8 % Normal 14.0 - 50.0 % [facility] HemeAutoSS Lymphocytes/Leukocytes Auto (Bld) [Pure # fraction] 2.0 E9/L Normal 1.0 - 4.0 E9/L [facility] HemeAutoSS Monocytes/100 WBC (Bld) 6.8 % Normal 4.0 - 14.0 % [facility] HemeAutoSS Monocytes/Leukocytes Auto (Bld) [Pure # fraction] 0.7 E9/L Normal 0.2 - 1.0 E9/L [facility] HemeAutoSS Neutrophils/100 WBC (Bld) 72.0 % Normal 36.0 - 75.0 % [facility] HemeAutoSS Neutrophils/Leukocytes Auto (Bld) [Pure # fraction] 7.8 E9/L High 2.0 - 7.5 E9/L [facility] HemeAutoSS HEMATOLOGYOrdered By: Temi Romero on 09-05-2022 Erythrocyte distribution width (RBC) [Ratio] 12.7 % Normal 10.9 - 14.2 % [facility] HemeAutoSS Hematocrit (Bld) [Volume fraction] 34.2 % Normal 34.0 - 46.0 % [facility] HemeAutoSS Hemoglobin (Bld) [Mass/Vol] 12.3 g/dL Normal 12.0 - 16.0 gm/dL [facility] HemeAutoSS MCH (RBC) [Entitic mass] 31.8 pg Normal 27.0 - 34.0 pg [facility] HemeAutoSS MCHC (RBC) [Mass/Vol] 35.9 g/dL Normal 31.4 - 36.0 gm/dL [facility] HemeAutoSS MCV (RBC) [Entitic vol] 88.7 fL Normal 80.0 - 100.0 fL [facility] HemeAutoSS Platelet mean volume (Bld) [Entitic vol] 9.8 fL Normal 6.4 - 10.8 fL [facility] HemeAutoSS Platelets (Bld) [#/Vol] 215.0 E9/L Normal 150.0 - 500.0 E9/L [facility] HemeAutoSS RBC (Bld) [#/Vol] 3.9 E12/L Low 4.3 - 5.9 E12/L [facility] HemeAutoSS WBC corrected for nucl RBC Auto (Bld) [#/Vol] 10.9 E9/L Normal 4.0 - 11.0 E9/L [facility] HemeAutoSS Comment on above: Result Comment: Slid e reviewed by ts. MICRO OTHER TESTSOrdered By: Valerie Li on 09-05-2022 Rapid COV Int NEG Ctl Pass (09/05/22 8:22 PM) Normal [facility] Man Sero Rapid COV Int POS Ctl Pass (09/05/22 8:22 PM) Normal [facility] Man Sero SARS-CoV+SARS-CoV-2 (COVID-19) Ag IA.rapid Ql (Resp) Detected 2 *ABN* (09/05/22 8:22 PM) Invalid Interpretation Code Not Detected [facility] Sero Comment on above: Result Comment: Resu lts Called To Berna Cook RN/ER By AGNIESZKA And Read Back For Confirmation On 09/05/2022 21:14:20 EST Results Verified By Repeat Analysis PT & PTTon 09-05-2022 aPTT Coag (PPP) [Time] 27.1 second(s) Normal 25.1-36.5 [facility] Comment on above: Result Comment: Para [...] the same coagulation reagent and instrumentation as [facility]. Currently there are no coagulation studies available worldwide for children to 14 days, and no normal ranges. Heparin therapeutic range (represented by Anti-Factor Xa activity of 0.2 - 0.4 U/mL) corresponds to PTT of 56.6 - 109.0 sec. Performed By: #### 2 533500, 40003805, 34389190, 3200814, 05919671, 42307153, 2112531 ####[facility] [address] [place] [address] INR Coag (PPP) [Relative time] 0.9 {INR} Invalid Interpretation Code [facility] Comment on above: Result Comment: INR results are specifically intended to assess patients stabilized on long-term Anticoagulation therapy suggested INR?s ?Less Intensive Anticoagulation? 2.0 ? 3.0Conventional Range 3.0 ? 4.5 Performed By: #### 2 999776, 89249628, 08126786, 4846495, 64293521, 81342677, 7607353 ####[facility] [address] [place] [address] PT Coag (PPP) [Time] 10.3 second(s) Normal 9.4-12.5 [facility] Comment on above: Result Comment: 15 [...] the same coagulation reagent and instrumentation as [facility]. Currently there are no coagulation studies available worldwide for children to 14 days, and no normal ranges. Performed By: #### 2 511139, 87965374, 13523177, 1275089, 04265712, 91872905, 4586264 ####[facility] [address] [place] [address] Rapid COVID Antigen ([facility])on 09-05-2022 Rapid COV Int NEG Ctl Pass Normal Fis [facility] Comment on above: Performed By: #### 2 [id number] ####[facility] [address] [place] [address] Rapid COV Int POS Ctl Pass Normal [facility] Comment on above: Performed By: #### 2 [id number] ####[facility] [address] [place] [address] SARS-CoV+SARS-CoV-2 (COVID-19) Ag IA.rapid Ql (Resp) Detected Abnormal Not Detected [facility] Comment on above: Result Comment: Resu lts Called To Berna Cook, RN/ER By AGNIESZKA And Read Back For Confirmation On 09/05/2022 21:14:20 ESTResults Verified By Repeat AnalysisThe FiveStars System for Rapid Detection of SARS-CoV-2 is [...] or revoked sooner. Performed By: #### 2 [id number] ####[place] [address] ADMITTED TO INTENSIVE CARE UNIT FOR CONDITION OF INTEREST:FIND:PT: NO Normal [facility] Comment on above: Performed By: #### 2 [id number] ####[place] [address] EMPLOYED IN A HEALTHCARE SETTING:FIND:PT: NO Normal [facility] Comment on above: Performed By: #### 2 [id number] ####[place] [address] FIRST TEST FOR CONDITION OF INTEREST:FIND:PT: YES Normal [facility] Comment on above: Performed By: #### 2 [id number] ####[place] [address] HAS SYMPTOMS RELATED TO CONDITION OF INTEREST:FIND:PT: YES Normal [facility] Comment on above: Performed By: #### 2 [id number] ####[place] [address] HOSPITALIZED FOR CONDITION OF INTEREST:FIND:PT: NO Normal [facility] Comment on above: Performed By: #### 2 [id number] ####[place] [id number] STATUS:FIND:PT: NO Normal [facility] Comment on above: Performed By: #### 2 [id number] ####[place] [id number] RESIDES IN A CONGREGATE CARE SETTING:FIND:PT: NO Normal [facility] Comment on above: Performed By: #### 2 [id number] ####[address] [address] Troponin 0 Hr.on 09-05-2022 Troponin I.cardiac [Mass/Vol] 4.70 pg/mL Low 10.10-27.10 [facility] Comment on above: Result Comment: The 95% CI (Confidence Interval) PPV (Positive Predictive Value) for myocardial infarction in females is 38 pg/mL, in males 51 pg/mL. The results should be used in conjunction with clinical conditions of myocardial infarction.(Access High Sensitivity Troponin I Instructions For Use, Ziggy Regina, May 2018) Performed By: #### 2 948610, 65925748, 05073813, 5075223, 59248432, 78516992, 6252239 ####[facility] [address] [place] [address] eGFRon 09-05-2022 GFR/1.73 sq M.predicted among blacks MDRD (S/P/Bld) [Vol rate/Area] mL/min/{1.73_m2} Normal >=59 [facility] Comment on above: Order Comment: Order added by Discern Expert. Result Comment: eGFR is race adjusted. AA=. Performed By: #### 2 745734, 86703112, 75439617, 7028775, 93928727, 07015555, 0154501 ####[facility] [address] [place] [address] GFR/1.73 sq M.predicted among non-blacks MDRD (S/P/Bld) [Vol rate/Area] mL/min/{1.73_m2} Normal >=59 [facility] Comment on above: Order Comment: Order added by Discern Expert. Result Comment: Crawler Crane Operator lucy kidney disease could be indicated at eGFR's of less than 60 mL/min/1.73m2. Kidney failure is indicated at less than 15 mL/min/1.73m2. Performed By: #### 2 350153, 39184905, 09992337, 0373513, 38803875, 56561040, 2439151 ####[facility] [address] [place] [address] Coding Summary.on 09-04-2022 Coding Summary. Normal [facility] Nursing Assessmenton 022 Nursing Assessment [id number]#[id number]:1 27 Normal [facility] Physician Orderon 09-04-2022 Physician Order [id number]#1.00CD:1 27 Normal [facility] ABO/Rhon 08-31-2022 ABO/Rh Positive Invalid Interpretation Code [facility] Comment on above: Performed By: #### 1 4134047, 9076166, 56829264, 57593541 ####[facility] [address] [place] [address] ABO/Rh History Checkon 08-31 ABO/Rh History Check Verified Hx Blood Type Normal [facility] Comment on above: Performed By: #### 1 2235071, 9594038, 79334002, 67203478 ####[facility] [address] [place] [address] ABSCon 08-31-2022 ABSC Gel Interp Negative Normal [facility] Comment on above: Performed By: #### 1 2477900, 3536590, 35139989, 20721111 ####[facility] [address] [place] [address] BUNon 08-31-2022 Urea nitrogen [Mass/Vol] 8 mg/dL Normal 03-04 [facility] Comment on above: Performed By: #### 2 924446, 1959065, 36956043, 3097371, 48937457, 7311132, 6488160, 9280722, 1156849, 9351615, 78597455 ####[facility] [address] [place] [address] Blood Bank ID#on 08-31-2022 BBID# [id number] Invalid Interpretation Code [facility] Comment on above: Performed By: #### 1 9824189, 3613108, 82363621, 18868625 ####[facility] [address] [place] [address] CBC w/Indiceson 08-31-2022 Erythrocyte distribution width (RBC) [Ratio] 12.9 % Normal 10.9-14.2 [facility] Comment on above: Performed By: #### 2 017405, 3873088, 20859495, 4532124, 10028518, 4506938, 5625307, 8480403, 1664404, 1506013, 90469589 ####[facility] [address] [place] [address] Hematocrit (Bld) [Volume fraction] 35.0 % Normal 34.0-46.0 [facility] Comment on above: Performed By: #### 2 502286, 9890232, 07266260, 7242730, 30873019, 5714713, 9401930, 5706891, 7499973, 2177079, 85019469 ####[facility] [address] [place] [address] Hemoglobin (Bld) [Mass/Vol] 12.0 g/dL Normal 12.0-16.0 [facility] Comment on above: Performed By: #### 2 438099, 5585524, 12136677, 7146828, 88613918, 7431512, 5243511, 9160980, 8137421, 3493187, 27788411 ####[facility] [address] [place] [address] MCH (RBC) [Entitic mass] 30.7 pg Normal 27.0-34.0 [facility] Comment on above: Performed By: #### 2 055907, 0059053, 11852579, 8308291, 81642330, 4091666, 3479645, 0582203, 6674202, 4802148, 68858261 ####[facility] [address] [place] [address] MCHC (RBC) [Mass/Vol] 34.4 g/dL Normal 31.4-36.0 [facility] Comment on above: Performed By: #### 2 790197, 4785164, 13622929, 2176693, 17509111, 9607973, 8093351, 0625223, 9769303, 2473397, 13157849 ####[facility] [address] [place] [address] MCV (RBC) [Entitic vol] 89.5 fL Normal 80.0-100.0 [facility] Comment on above: Performed By: #### 2 835053, 4170436, 41261764, 6978720, 88003193, 8972712, 5503755, 6086456, 3913498, 3659634, 11923928 ####[facility] [address] [place] [address] Platelet mean volume (Bld) [Entitic vol] 9.8 fL Normal 6.4-10.8 [facility] Comment on above: Performed By: #### 2 052468, 8286526, 36477494, 1602290, 12648408, 7683610, 7996279, 6507802, 3133536, 9671427, 48676895 ####[address] [address] Platelets (Bld) [#/Vol] 234.0 E9/L Normal 150.0-500.0 [facility] Comment on above: Performed By: #### 2 662193, 0154468, 87446856, 1544114, 67463648, 1298757, 3979231, 4958533, 3027785, 4106729, 27131145 ####[address] [address] RBC (Bld) [#/Vol] 3.9 E12/L Low 4.3-5.9 [facility] Comment on above: Performed By: #### 2 052162, 5510444, 45900172, 7967412, 55978776, 6406289, 9199351, 2421274, 4345005, 6341542, 94790331 ####[address] [place] [address] WBC corrected for nucl RBC Auto (Bld) [#/Vol] 12.6 E9/L High 4.0-11.0 [facility] Comment on above: Performed By: #### 2 374848, 4659121, 32693622, 4881646, 74352435, 0230090, 5032129, 9580293, 1240258, 6835568, 79136926 ####[facility] [address] [place] [address] Creatinineon 08-31-2022 Creatinine [Mass/Vol] 0.7 mg/dL Normal 0.5-1.3 [facility] Comment on above: Performed By: #### 2 977134, 2324436, 71342194, 0022546, 73303538, 0777589, 0711279, 2411557, 9499299, 6363630, 09050884 ####[address] [place] [address] Discharge Instructionson Discharge Instructions [id number]#[id number]:12 7 Normal [facility] Ethanolon 08-31-2022 Ethanol [Mass/Vol] mg/dL Normal <=7 [facility] Comment on above: Performed By: #### 2 373530 ####[address] [place] [address] FSPon 08-31-2022 Fibrin+Fibrinogen fragments (S) [Mass/Vol] <10 Normal <10 [facility] Comment on above: Performed By: #### 2 457351, 4852930, 88703315, 0876049, 59249933, 3180237, 9905461, 6623252, 2007207, 3696967, 02206580 ####[facility] [address] [place] [address] Stainon 08-31-2022 FMHV 0 mL Invalid Interpretation Code [facility] Comment on above: Performed By: #### 2 848569, 7812033, 60763496, 4607469, 73106800, 5151369, 2051132, 4144896, 5073471, 1096191, 89802593 ####[facility] [address] [place] [address] Negative Control Negative Normal [facility] Comment on above: Performed By: #### 2 288686, 8391356, 80610480, 2112659, 01189636, 4639208, 1467885, 1962148, 2840986, 6308081, 80166727 ####[facility] [address] [place] [address] Fibrinogenon 08-31-2022 Fibrinogen Coag (PPP) [Mass/Vol] 406 mg/dL High 200-393 [facility] Comment on above: Performed By: #### 2 557763, 0257453, 43888834, 4683965, 49869700, 2662830, 6077003, 6658377, 2100115, 4839858, 62571638 ####[facility] [address] [place] [address] Hep Func Panelon 08-31-2022 Bilirubin.indirect [Mass or moles/Vol] UTC Abnormal 0.1-0.9 [facility] Comment on above: Result Comment: Resu lt verified by Discern Rule. Performed result UTC (Unable to Calculate) was sent as an Alpha code due the inability to calculate a valid numeric value. Performed By: #### 2 499353, 0133419, 70457309, 3261478, 38538827, 4088181, 9597159, 9688874, 5878551, 8027089, 38213403 ####[facility] [address] [place] [address] Albumin [Mass/Vol] 2.8 g/dL Low 3.3-5.0 [facility] Comment on above: Performed By: #### 2 154023, 2719571, 09023412, 5444088, 41574470, 8132144, 7115498, 8687240, 2855104, 7514776, 52040730 ####[facility] [address] [place] [address] Albumin/Globulin (S) [Mass conc ratio] 0.7 Low 1.1-2.2 [facility] Comment on above: Performed By: #### 2 151581, 2499285, 35031042, 2030238, 77438783, 7539649, 0690824, 5778454, 7026088, 4254493, 49377798 ####[facility] [address] [place] [address] ALP [Catalytic activity/Vol] 80 Int._Unit/L Normal 21-98 [facility] Comment on above: Performed By: #### 2 450051, 5464378, 43841239, 3202946, 22306803, 2008161, 7458664, 2787406, 6096652, 4682531, 26230628 ####[address] [place] [address] ALT No additional P-5'-P [Catalytic activity/Vol] 10 Int._Unit/L Normal 6-46 [facility] Comment on above: Performed By: #### 2 176215, 3731980, 65068230, 6989266, 29874998, 8054682, 4760051, 1624527, 0059478, 1643715, 51330728 ####[address] [address] AST [Catalytic activity/Vol] 16 Int._Unit/L Normal 5-43 [facility] Comment on above: Performed By: #### 2 245222, 5275965, 96969523, 2312755, 21167989, 5734523, 2120876, 9244691, 4816935, 7777285, 55296986 ####[facility] [address] [place] [address] Bilirubin [Mass/Vol] 0.1 mg/dL Normal 0.0-1.1 [facility] Comment on above: Performed By: #### 2 329302, 1757589, 80704729, 6668963, 87323744, 7536135, 0657253, 9522696, 6172748, 4957619, 76871497 ####[address] [place] [address] Bilirubin.direct [Mass/Vol] mg/dL Normal 0.1-0.4 [facility] Comment on above: Performed By: #### 2 591340, 7630534, 91867452, 6456168, 40663833, 2066227, 2327413, 2098359, 3590733, 8635628, 62922148 ####[facility] [address] [place] [address] Globulin (S) [Mass/Vol] 3.8 g/dL Normal 1.4-4.0 [facility] Comment on above: Performed By: #### 2 086877, 6227989, 57373283, 0919308, 22340088, 3854068, 8143371, 9811532, 5868219, 4510947, 49109001 ####[facility] [address] [place] [address] Protein [Mass/Vol] 6.6 g/dL Normal 6.0-7.8 [facility] Comment on above: Performed By: #### 2 703029, 5047374, 10540351, 4567837, 13881240, 2333845, 2002378, 8759106, 8042752, 2768525, 68736256 ####[facility] [address] [place] [address] Inpatient Clinical Summaryon 08-31-2022 Inpatient Clinical Summary Normal [facility] Inpatient Patient Summaryon 08-31-2022 Inpatient Patient Summary Normal [facility] Lyteson 08-31-2022 Anion gap [Moles/Vol] 13 mmol/L Normal 6-16 [facility] Comment on above: Performed By: #### 2 263699, 9102076, 33298208, 6889716, 33367131, 4101263, 3747135, 7353069, 2281261, 6576165, 26057229 ####[facility] [address] [place] [address] Chloride [Moles/Vol] 104 mmol/L Normal 101-111 [facility] Comment on above: Performed By: #### 2 966970, 4143583, 30745478, 7142839, 21053426, 9745744, 4304248, 4974806, 5405090, 6186904, 07427008 ####[facility] [address] [place] [address] CO2 [Moles/Vol] 22 mmol/L Normal 21-31 [facility] Comment on above: Performed By: #### 2 370910, 5513221, 23720074, 7193876, 74615499, 9893485, 4142805, 9212066, 8693678, 9715177, 83951103 ####[facility] [address] [place] [address] Potassium [Moles/Vol] 3.5 mmol/L Normal 3.5-5.3 [facility] Comment on above: Performed By: #### 2 553424, 4063073, 86221843, 6553229, 58828756, 5085240, 6618207, 8240741, 2363581, 3772972, 45148105 ####[facility] [address] [place] [address] Sodium [Moles/Vol] 135 mmol/L Normal 135-145 [facility] Comment on above: Performed By: #### 2 489398, 6207637, 75647460, 1783857, 38181419, 0346411, 1610057, 0537452, 5349220, 9973962, 88342489 ####[facility] [address] [place] [address] Nursing Assessmenton 022 Nursing Assessment [id number]#[id number]:12 7 Normal [facility] PT & PTTon 08-31-2022 aPTT Coag (PPP) [Time] 26.3 second(s) Normal 25.1-36.5 [facility] Comment on above: Result Comment: Para [...] the same coagulation reagent and instrumentation as [facility]. Currently there are no coagulation studies available worldwide for children to 14 days, and no normal ranges. Heparin therapeutic range (represented by Anti-Factor Xa activity of 0.2 - 0.4 U/mL) corresponds to PTT of 56.6 - 109.0 sec. Performed By: #### 2 966274, 5362070, 37507860, 2896713, 83132892, 4959429, 8036891, 0400701, 6734520, 5719773, 33896894 ####[facility] [address] [place] [address] INR Coag (PPP) [Relative time] 0.9 {INR} Invalid Interpretation Code [facility] Comment on above: Result Comment: INR results are specifically intended to assess patients stabilized on long-term Anticoagulation therapy suggested INR?s ?Less Intensive Anticoagulation? 2.0 ? 3.0Conventional Range 3.0 ? 4.5 Performed By: #### 2 253209, 9889144, 02976103, 1020539, 31452435, 1410806, 0742426, 7995432, 6911455, 3556309, 73150253 ####[facility] [address] [place] [address] PT Coag (PPP) [Time] 10.2 second(s) Normal 9.4-12.5 [facility] Comment on above: Result Comment: 15 [...] the same coagulation reagent and instrumentation as [facility]. Currently there are no coagulation studies available worldwide for children to 14 days, and no normal ranges. Performed By: #### 2 289996, 1859915, 48514060, 8265848, 57436282, 4149843, 7196996, 5787744, 9484318, 3749656, 64420937 ####[facility] [address] [place] [address] U Drug Screenon 08-31-2022 Amphetamines Screen method >1000 ng/mL Ql (U) Negative Normal Negative [facility] Comment on above: Result Comment: Nega tive Cutoff: <1000 ng/mL Performed By: #### 2 325773, 50096200 ####[facility] [address] [place] [address] Barbiturates Screen Ql (U) Negative Normal Negative [facility] Comment on above: Result Comment: Nega tive Cutoff: <200 ng/mL Performed By: #### 2 503245, 33608220 ####[facility] [address] [place] [address] Benzodiazepines Ql (U) Negative Normal Negative [facility] Comment on above: Result Comment: Nega tive Cutoff: <200 ng/mL Performed By: #### 2 677431, 94575991 ####[facility] [address] [place] [address] Cocaine Ql (U) Negative Normal Negative [facility] Comment on above: Result Comment: Nega tive Cutoff: <300 ng/mL Performed By: #### 2 731342, 72524852 ####[facility] [address] [place] [address] Opiates Screen Ql (U) Negative Normal Negative Fis [facility] Comment on above: Result Comment: Nega tive Cutoff: <300 ng/mL Performed By: #### 2 195464, 72025655 ####[facility] [address] [place] [address] Phencyclidine Screen method >25 ng/mL Ql (U) Negative Normal Negative [facility] Comment on above: Result Comment: Nega tive Cutoff: <25 ng/mLThese drug screen results are to be used for medical (i.e., treatment) purposes only. Unconfirmed drug screening results must not be used for non-medical purposes (e.g., employment testing, legal testing). Performed By: #### 2 109241, 61218365 ####[address] [address] Tetrahydrocannabinol Screen method >50 ng/mL Ql (U) Negative Normal Negative [facility] Comment on above: Result Comment: Nega tive Cutoff: <50 ng/mL Performed By: #### 2 583824, 17264088 ####[facility] [address] [place] [address] UA With Cult Reflexon 2021 Bacteria LM Ql (Urine sed) TRACE Normal Trace [facility] Comment on above: Performed By: #### 2 995152, 45806457 ####[facility] [address] [place] [address] Bilirubin Ql (U) Negative Normal Negative [facility] Comment on above: Performed By: #### 2 024445, 94821574 ####[facility] [address] [place] [address] Clarity (U) CLEAR Normal Clear [facility] Comment on above: Performed By: #### 2 102332, 99810294 ####[facility] [address] [place] [address] Color (U) YELLOW Normal Yellow [facility] Comment on above: Performed By: #### 2 332294, 85224339 ####[facility] [address] [place] [address] Epithelial cells.squamous LM.HPF (Urine sed) [#/Area] 0-2 Normal 0-2 [facility] Comment on above: Performed By: #### 2 458336, 31743262 ####[facility] [address] [place] [address] Glucose Test strip (U) [Mass/Vol] Negative Normal Negative [facility] Comment on above: Performed By: #### 2 192895, 38750244 ####[address] [place] [address] Hemoglobin Ql (U) Negative Normal Negative [facility] Comment on above: Performed By: #### 2 044447, 34500871 ####[address] [address] Ketones (U) [Mass/Vol] Negative Normal Negative [facility] Comment on above: Performed By: #### 2 048545, 75811143 ####[address] [address] [place].plasma/[place] .RBC (Bld) [Mass ratio] 0-3 Normal 0-3 [facility] Comment on above: Performed By: #### 2 373730, 35660892 ####[facility] [address] [place] [address] Nitrite Ql (U) Negative Normal Negative [facility] Comment on above: Performed By: #### 2 727918, 51731278 ####[facility] [address] [place] [address] pH (U) 6.0 [pH] Invalid Interpretation Code 5.0-9.0 [facility] Comment on above: Performed By: #### 2 260767, 35887977 ####[address] [place] [address] Protein (U) [Mass/Vol] Negative Normal Negative [facility] Comment on above: Performed By: #### 2 029670, 50295638 ####[address] [address] Specific gravity (U) [Rel density] 1.010 Invalid Interpretation Code 1.005-1.030 [facility] Comment on above: Performed By: #### 2 454845, 90237599 ####[facility] [address] [place], [place] [address] Type of Urine collection method Clean Catch Normal [facility] Comment on above: Performed By: #### 2 153377, 62572336 ####[address] Urobilinogen Qn (U) 0.2 {Rola'U}/dL Normal 0.0-1.0 [facility] Comment on above: Performed By: #### 2 170861, 04974061 ####[address] WBC Auto Ql (U) Negative Normal Negative [facility] Comment on above: Performed By: #### 2 550152, 50228599 ####[facility] [address] [place], [place] [address] WBC LM.HPF (Urine sed) [#/Area] 0-5 Normal 0-5 [facility] Comment on above: Performed By: #### 2 005611, 31502595 ####[facility] [address] [place] [address] Uric Acidon 08-31-2022 Urate [Mass/Vol] 5.0 mg/dL Normal 2.2-7.4 [facility] Comment on above: Performed By: #### 2 712475, 1595659, 96175933, 7667936, 44198145, 8378324, 8959913, 6685441, 5815156, 6885634, 29401689 ####[address] [address] eGFRon 08-31-2022 GFR/1.73 sq M.predicted among blacks MDRD (S/P/Bld) [Vol rate/Area] mL/min/{1.73_m2} Normal >=59 [facility] Comment on above: Order Comment: Order added by Discern Expert. Result Comment: eGFR is race adjusted. AA=. Performed By: #### 2 959935, 3248934, 76498081, 5140956, 45027048, 4703594, 4994361, 0975185, 3376864, 0923921, 01523647 ####[facility] [address] [place] [address] GFR/1.73 sq M.predicted among non-blacks MDRD (S/P/Bld) [Vol rate/Area] mL/min/{1.73_m2} Normal >=59 [facility] Comment on above: Order Comment: Order added by Discern Expert. Result Comment: Crawler Crane Operator lucy kidney disease could be indicated at eGFR's of less than 60 mL/min/1.73m2. Kidney failure is indicated at less than 15 mL/min/1.73m2. Performed By: #### 2 379612, 0051484, 99164873, 2161497, 75570749, 6480191, 1307953, 3794440, 8273647, 2659719, 36580920 ####[facility] [address] [place] [address] BLOOD BANKOrdered By: Naldo Li on 08-30-2022 ABO/Rh Interp Positive Invalid Interpretation Code [facility] BB Subsection ABSC Gel Interp Negative (08/30/22 11:51 PM) Normal [facility] BB Subsection FMHV 0 mL Invalid Interpretation Code [facility] Man Sero CHEMISTRYOrdered By: SYSTEM SYSTEM on [...] 13 mmol/L Normal 6 - 16 mEq/L [facility] Remisol AST [Catalytic activity/Vol] 16 [iU]/d Normal [...] [facility] Remisol Ethanol [Mass/Vol] mg/dL Normal <=7mg/dL [facility] Remisol GFR/1.73 sq M.predicted among blacks MDRD (S/P/Bld) [Vol rate/Area] mL/min/1.73 m2 Normal >=59mL/min/ 1.73 m2 FT Chem S GFR/1.73 sq M.predicted among non-blacks MDRD (S/P/Bld) [Vol rate/Area] mL/min/1.73 m2 Normal >=59mL/min/ 1.73 m2 [facility] Chem S Globulin (S) [Mass/Vol] 3.8 g/dL [...] Normal 5 - 21 mg/dL [facility] Remisol Amphetamines Screen method >1000 ng/mL [...] [Mass/Vol] <10 (08/30/22 11:51 PM) Normal <10 [facility] Man Sero Fibrinogen Coag (PPP) [Mass/Vol] 406 mg/dL High 200 - 393 mg/dL [facility] Auto Coag INR Coag (PPP) [Relative time] 0.9 {INR} Invalid Interpretation Code [facility] Auto Coag PT Coag (PPP) [Time] 10.2 s Normal 9.4 - 1 2.5 second(s) [facility] Auto Coag Consent for Treatmenton 08-15 Consent for Treatment [id number]#1.00CD:12 7 Normal [facility] HEMATOLOGYOrdered By: Naldo Li on 08-30-2022 Erythrocyte distribution width (RBC) [Ratio] 12.9 % Normal 10.9 - 14.2 % [facility] HemeAutoSS Hematocrit (Bld) [Volume fraction] 35.0 % Normal 34.0 - 46.0 % [facility] HemeAutoSS Hemoglobin (Bld) [Mass/Vol] 12.0 g/dL Normal 12.0 - 16.0 gm/dL [facility] HemeAutoSS MCH (RBC) [Entitic mass] 30.7 pg Normal 27.0 - 34.0 pg [facility] HemeAutoSS MCHC (RBC) [Mass/Vol] 34.4 g/dL Normal 31.4 - 36.0 gm/dL [facility] HemeAutoSS MCV (RBC) [Entitic vol] 89.5 fL Normal 80.0 - 100.0 fL [facility] HemeAutoSS Platelet mean volume (Bld) [Entitic vol] 9.8 fL Normal 6.4 - 10.8 fL [facility] HemeAutoSS Platelets (Bld) [#/Vol] 234.0 E9/L Normal 150.0 - 500.0 E9/L [facility] HemeAutoSS RBC (Bld) [#/Vol] 3.9 E12/L Low 4.3 - 5.9 E12/L [facility] HemeAutoSS WBC corrected for nucl RBC Auto (Bld) [#/Vol] 12.6 E9/L High 4.0 - [...] PM) Normal Negative [facility] UA Auto SS [place].plasma/[place] .RBC (Bld) [Mass ratio] 0-3 /HPF Normal 0-3/HPF [...] Desc Clean Catch (08/30/22 9:45 PM) Normal [facility] UA Auto SS Urobilinogen Qn (U) 0.1206247 {Rola'U}/dL Normal 0.0 - 1.0 EU/dL [facility] UA Auto SS WBC Auto Ql (U) Negative (08/30/22 9:45 PM) Normal Negative [facility] UA Auto SS WBC LM.HPF (Urine sed) [#/Area] 0-5 /HPF Normal 0-5/HPF [facility] UA Auto SS Coding Summary.on 08-28-2022 Coding Summary. Normal [facility] BLOOD BANKOrdered By: Janet Reyes on 08-22-2022 ABO/Rh Interp Positive Invalid Interpretation Code [facility] BB Subsection ABSC Gel Interp Negative (08/22/22 4:03 PM) Normal [facility] BB Subsection FMHV 0 mL Invalid Interpretation Code [facility] Man Sero CHEMISTRYOrdered By: SYSTEM SYSTEM on 08-22-2022 Albumin [Mass/Vol] 2.7 g/dL Low 3.3 - 5.0 gm/dL [facility] Remisol Albumin/Globulin [Mass ratio] 0.7 {ratio} Low 1.1 - 2.2 [facility]isol ALP [Catalytic activity/Vol] 77 [iU]/d Normal 21 - 98 Int._Unit/L [facility] Remisol ALT No additional P-5'-P [Catalytic activity/Vol] 13 [iU]/d Normal 6 - 46 Int._Unit/L [facility] Remisol Anion gap [Moles/Vol] 13 mmol/L Normal 6 - 16 mEq/L [facility] [...] MDRD (S/P/Bld) [Vol rate/Area] mL/min/1.73 m2 Normal >=59mL/min/ 1.73 m2 [facility] Chem S GFR/1.73 sq M.predicted among non-blacks MDRD (S/P/Bld) [Vol rate/Area] mL/min/1.73 m2 Normal >=59mL/min/ 1.73 m2 [facility] Chem S Globulin (S) [Mass/Vol] 3.7 g/dL [...] nitrogen [Mass/Vol] mg/dL Normal 5 - 21 mg/dL [facility] Remisol Amphetamines Screen method >1000 ng/mL [...] (PPP) [Time] 10.5 s Normal 9.4 - 1 2.5 second(s) [facility] Auto Coag HEMATOLOGYOrdered By: Janet Reyes on 08-22-2022 Erythrocyte distribution width (RBC) [Ratio] 12.8 % Normal 10.9 - 14.2 % [facility] HemeAutoSS Hematocrit (Bld) [Volume fraction] 35.3 % Normal 34.0 - 46.0 % [facility] HemeAutoSS Hemoglobin (Bld) [Mass/Vol] 12.1 g/dL Normal 12.0 - 16.0 gm/dL [facility] HemeAutoSS MCH (RBC) [Entitic mass] 31.1 pg Normal 27.0 - 34.0 pg [facility] HemeAutoSS MCHC (RBC) [Mass/Vol] 34.2 g/dL Normal 31.4 - 36.0 gm/dL [facility] HemeAutoSS MCV (RBC) [Entitic vol] 90.8 fL Normal 80.0 - 100.0 fL [facility] HemeAutoSS Platelet mean volume (Bld) [Entitic vol] 10.2 fL Normal 6.4 - 10.8 fL [facility] HemeAutoSS Platelets (Bld) [#/Vol] 226.0 E9/L Normal 150.0 - 500.0 E9/L [facility] HemeAutoSS RBC (Bld) [#/Vol] 3.9 E12/L Low 4.3 - 5.9 E12/L [facility] HemeAutoSS WBC corrected for nucl RBC Auto (Bld) [#/Vol] 11.7 E9/L High 4.0 - [...] PM) Normal Negative [facility] UA Auto SS [place].plasma/[place] .RBC (Bld) [Mass ratio] 0-3 /HPF Normal 0-3/HPF [...] [facility] UA Auto SS Urobilinogen Qn (U) 0.9967954 {Rola'U}/dL Normal 0.0 - 1.0 EU/dL [facility] [...] AM) Normal Negative [facility] UA Auto SS [place].plasma/[place] .RBC (Bld) [Mass ratio] 0-3 /HPF Normal 0-3/HPF [...] AM) Invalid Interpretation Code 1.005 - 1.030 [facility] UA Auto SS UA Spec Desc Clean Catch (08/18/22 4:08 AM) Normal [facility] UA Auto SS Urobilinogen Qn (U) 0.6140022 {Rola'U}/dL Normal 0.0 - 1.0 EU/dL [facility] UA Auto SS WBC Auto Ql (U) 2+ *ABN* (08/18/22 4:08 AM) Invalid Interpretation Code Negative [facility] UA Auto SS WBC LM.HPF (Urine sed) [#/Area] 6-15 /HPF Invalid Interpretation Code 0-5/HPF [facility] UA Auto SS BLOOD BANKOrdered By: Tom Avelar on 08-13-2022 ABO/Rh Interp Positive Invalid Interpretation Code FT BB Subsection ABSC Gel Interp Negative (08/13/22 6:26 PM) Normal [facility] BB Subsection FMHV 0 mL Invalid Interpretation Code [facility] Man Sero CHEMISTRYOrdered By: SYSTEM SYSTEM on [...] 13 mmol/L Normal 6 - 16 mEq/L [facility] Remisol AST [Catalytic activity/Vol] 19 [iU]/d Normal [...] MDRD (S/P/Bld) [Vol rate/Area] mL/min/1.73 m2 Normal >=59mL/min/ 1.73 m2 [facility] Chem S GFR/1.73 sq M.predicted among non-blacks MDRD (S/P/Bld) [Vol rate/Area] mL/min/1.73 m2 Normal >=59mL/min/ 1.73 m2 [facility] Chem S Globulin (S) [Mass/Vol] [...] 6 mg/dL Normal 5 - 21 mg/dL [facility] Remisol Amphetamines Screen method >1000 ng/mL [...] (PPP) [Time] 10.0 s Normal 9.4 - 1 2.5 second(s) [facility] Auto Coag HEMATOLOGYOrdered By: Tom Avelar on 08-13-2022 Erythrocyte distribution width (RBC) [Ratio] 12.7 % Normal 10.9 - 14.2 % [facility] HemeAutoSS Hematocrit (Bld) [Volume fraction] 35.6 % Normal 34.0 - 46.0 % [facility] HemeAutoSS Hemoglobin (Bld) [Mass/Vol] 11.8 g/dL Low 12.0 - 16.0 gm/dL [facility] HemeAutoSS MCH (RBC) [Entitic mass] 30.8 pg Normal 27.0 - 34.0 pg [facility] HemeAutoSS MCHC (RBC) [Mass/Vol] 33.2 g/dL Normal 31.4 - 36.0 gm/dL [facility] HemeAutoSS MCV (RBC) [Entitic vol] 92.8 fL Normal 80.0 - 100.0 fL [facility] Platelet mean volume (Bld) [Entitic vol] 9.9 fL Normal 6.4 - 10.8 fL [facility] Platelets (Bld) [#/Vol] 224.0 E9/L Normal 150.0 - 500.0 E9/L [facility] RBC (Bld) [#/Vol] 3.8 E12/L Low 4.3 - 5.9 E12/L [facility] WBC corrected for nucl RBC Auto (Bld) [#/Vol] 11.3 E9/L High 4.0 - [...] Interpretation Code Negative [facility] UA Auto SS [place].plasma/[place] .RBC (Bld) [Mass ratio] 0-3 /HPF Normal 0-3/HPF [...] [facility]A Auto SS Urobilinogen Qn (U) 0.3962491 {Rola'U}/dL Normal 0.0 - 1.0 EU/dL [facility] [...] AM) Normal Negative [facility] UA Auto SS [place].plasma/[place] .RBC (Bld) [Mass ratio] 0-3 /HPF Normal 0-3/HPF [...] [facility] UA Auto SS Urobilinogen Qn (U) 0.7181410 {Rola'U}/dL Normal 0.0 - 1.0 EU/dL [facility] Auto SS WBC Auto Ql (U) Trace *ABN* (07/26/22 8:05 AM) Invalid Interpretation Code Negative [facility] Auto SS WBC LM.HPF (Urine sed) [#/Area] 0-5 /HPF Normal 0-5/HPF [facility]A Auto SS MICRO OTHER TESTSOrdered By: Tonja Carter on 07-17-2022 Influenzae A Ag Negative (07/17/22 9:20 AM) Normal Negative [facility] Influenzae B Ag Negative (07/17/22 9:20 AM) Normal Negative [facility]ero Rapid COV Int NEG Ctl Pass (07/17/22 9:20 AM) Normal [facility]ero Rapid COV Int POS Ctl Pass (07/17/22 9:20 AM) Normal [facility] SARS-CoV+SARS-CoV-2 (COVID-19) Ag IA.rapid Ql (Resp) Not Detected (07/17/22 9:20 AM) Normal Not Detected [facility] URINALYSISOrdered By: Tonja pablo on 07-17-2022 Bacteria LM Ql (Urine [...] AM) Normal Negative [facility] UA Auto SS [place].plasma/[place] .RBC (Bld) [Mass ratio] 0-3 /HPF Normal 0-3/HPF [facility] Nitrite Ql (U) Negative (07/17/22 9:25 AM) Normal Negative [facility] U[facility] Auto SS pH (U) 7.0 *NA* (07/17/22 9:25 AM) Invalid Interpretation Code 5.0 - 9.0 [facility] UA Auto SS Protein (U) [Mass/Vol] Negative (07/17/22 9:25 AM) Normal Negative [facility] UA Auto SS Specific gravity (U) [Rel density] <=1.005 *NA* (07/17/22 9:25 AM) Invalid Interpretation Code 1.005 - 1.030 [facility] UA Auto SS UA Spec Desc Clean Catch (07/17/22 9:25 AM) Normal [facility] UA Auto SS Urobilinogen Qn (U) 0.9590544 {Rola'U}/dL Normal 0.0 - 1.0 EU/dL [facility] UA Auto SS WBC Auto Ql (U) Negative (07/17/22 9:25 AM) Normal Negative [facility] UA Auto SS WBC LM.HPF (Urine sed) [#/Area] 0-5 /HPF Normal 0-5/HPF [facility] UA Auto SS CHEMISTRYOrdered By: SYSTEM SYSTEM on 06-28-2022 Glucose 1 Hr post 50 g glucose PO [Mass/Vol] 93 mg/dL Normal 55 - 140 mg/dL [facility] Remisol HEMATOLOGYOrdered By: Keila Ring on 06-28-2022 Hematocrit (Bld) [Volume fraction] 35.4 % Normal 34.0 - 46.0 % [facility] Hemoglobin (Bld) [Mass/Vol] 12.1 g/dL Normal 12.0 - 16.0 gm/dL [facility] BLOOD BANKOrdered By: Jeanette Castle on 06-19-2022 ABO/Rh Interp Positive Invalid Interpretation Code [facility] BB Subsection ABSC Gel Interp Negative (06/19/22 12:15 AM) Normal [facility] BB Subsection FMHV 0 mL Invalid Interpretation Code [facility] Man Sero CHEMISTRYOrdered By: SYSTEM SYSTEM on 06-19-2022 Albumin [Mass/Vol] 2.9 g/dL Low 3.3 - 5.0 gm/dL [facility] Remisol Albumin/Globulin [Mass ratio] 0.8 {ratio} Low 1.1 - 2.2 [facility] ALP [Catalytic activity/Vol] 44 [iU]/d Normal 21 - 98 Int._Unit/L [facility] ALT No additional P-5'-P [Catalytic activity/Vol] 23 [iU]/d Normal 6 - 46 Int._Unit/L [facility] Anion gap [Moles/Vol] 10 mmol/L Normal 6 - 16 mEq/L [facility] AST [Catalytic activity/Vol] 18 [iU]/d Normal 5 - 43 Int._Unit/L [facility] Bilirubin [Mass/Vol] 0.2 mg/dL Normal 0.0 - 1 .1 mg/dL [facility] Bilirubin.direct [Mass/Vol] mg/dL Normal 0.1 - 0.4 mg/dL [facility] Bilirubin.indirect [Mass or moles/Vol] Unable to Calculate mg/dL Invalid Interpretation Code 0.1 - 0.9 mg/dL [facility] Chloride [Moles/Vol] 103 mmol/L Normal 101 - 1 11 mmol/L [facility] CO2 [Moles/Vol] 25 mmol/L Normal 21 - 31 mmol/L [facility] Creatinine [Mass/Vol] 0.5 mg/dL Normal 0.5 - 1.3 mg/dL [facility] GFR/1.73 sq M.predicted among blacks MDRD (S/P/Bld) [Vol rate/Area] mL/min/1.73 m2 Normal >=59mL/min/ 1.73 m2 [facility] Chem S GFR/1.73 sq M.predicted among non-blacks MDRD (S/P/Bld) [Vol rate/Area] mL/min/1.73 m2 Normal >=59mL/min/ 1.73 m2 [facility] Chem S Globulin (S) [Mass/Vol] 3.5 g/dL Normal 1.4 - 4.0 gm/dL [facility] Potassium [Moles/Vol] 3.3 mmol/L Low 3.5 - 5.3 mmol/L [facility] Protein [Mass/Vol] 6.4 g/dL Normal 6.0 - 7.8 gm/dL [facility] Sodium [Moles/Vol] 135 mmol/L Normal 135 - 145 mmol/L [facility] Urate [Mass/Vol] 3.5 mg/dL Normal 2.2 - 7.4 mg/dL [facility] Urea nitrogen [Mass/Vol] 5 mg/dL Normal 5 - 21 mg/dL [facility] COAGULATIONOrdered By: Davion Castle on 06-19-2022 aPTT Coag (PPP) [Time] 26.9 s Normal 25.1 - 36.5 second(s) [facility] Auto Coag Fibrin+Fibrinogen fragments (S) [Mass/Vol] <10 (06/19/22 12:15 AM) Normal <10 [facility] Fibrinogen Coag (PPP) [Mass/Vol] 367 mg/dL Normal 200 - 393 mg/dL [facility] INR Coag (PPP) [Relative time] 0.9 {INR} Invalid Interpretation Code [facility] Auto Coag PT Coag (PPP) [Time] 10.3 s Normal 9.4 - 1 2.5 second(s) [facility] Auto Coag HEMATOLOGYOrdered By: Jeanette Castle on 06-19-2022 Erythrocyte distribution width (RBC) [Ratio] 13.5 % Normal 10.9 - 14.2 % [facility] Hematocrit (Bld) [Volume fraction] 34.8 % Normal 34.0 - 46.0 % [facility] Hemoglobin (Bld) [Mass/Vol] 11.7 g/dL Low 12.0 - 16.0 gm/dL [facility] MCH (RBC) [Entitic mass] 31.1 pg Normal 27.0 - 34.0 pg [facility] MCHC (RBC) [Mass/Vol] 33.6 g/dL Normal 31.4 - 36.0 gm/dL [facility] MCV (RBC) [Entitic vol] 92.7 fL Normal 80.0 - 100.0 fL [facility] Platelet mean volume (Bld) [Entitic vol] 8.7 fL Normal 6.4 - 10.8 fL [facility] Platelets (Bld) [#/Vol] 202.0 E9/L Normal 150.0 - 500.0 E9/L [facility] RBC (Bld) [#/Vol] 3.8 E12/L Low 4.3 - 5.9 E12/L [facility] WBC corrected for nucl RBC Auto (Bld) [#/Vol] 9.0 E9/L Normal 4.0 - 11.0 E9/L [facility] CHEMISTRYOrdered By: SYSTEM SYSTEM on 06-18-2022 Amphetamines Screen method >1000 ng/mL Ql (U) Negative (06/18/22 11:45 PM) [...] UA Auto SS Color (U) STRAW Invalid Interpretation Code [facility]A Auto SS Epithelial cells.squamous LM.HPF (Urine sed) [#/Area] 0-2 /HPF Normal 0-2/HPF [facility]A Auto SS Glucose Test strip (U) [Mass/Vol] Negative (06/18/22 11:45 PM) Normal Negative [facility]A Auto SS Hemoglobin Ql (U) Negative (06/18/22 11:45 PM) Normal Negative [facility]A Auto SS Ketones (U) [Mass/Vol] Negative (06/18/22 11:45 PM) Normal Negative [facility] UA Auto SS [place].plasma/[place] .RBC (Bld) [Mass ratio] 0-3 /HPF Normal 0-3/HPF [...] [facility] UA Auto SS Urobilinogen Qn (U) 0.8207521 {Rola'U}/dL Normal 0.0 - 1.0 EU/dL [facility] [...] Auto SS Clarity (U) SL CLOUDY Invalid Interpretation Code [facility]A Auto SS Color (U) [...] PM) Normal Negative [facility] UA Auto SS [place].plasma/[place] .RBC (Bld) [Mass ratio] 0-3 /HPF Normal 0-3/HPF [facility]A Auto SS Mucus Ql (Urine sed) Trace (05/01/22 5:20 PM) Normal [facility]A Auto SS Nitrite Ql (U) Negative (05/01/22 5:20 PM) Normal Negative [facility]A Auto SS pH (U) 5.5 *NA* (05/01/22 5:20 PM) Invalid Interpretation Code 5.0 - 9.0 [facility]A Auto SS Protein (U) [Mass/Vol] Trace *ABN* (05/01/22 5:20 PM) Invalid Interpretation Code Negative [facility]A Auto SS Specific gravity (U) [Rel density] >=1.030 *NA* (05/01/22 5:20 PM) Invalid Interpretation Code 1.005 - 1.030 [facility] UA Auto SS UA Spec Desc Random Urine (05/01/22 5:20 PM) Normal [facility] Auto SS Urobilinogen Qn (U) 1.2836435 {Rola'U}/dL Normal 0.0 - 1.0 EU/dL [facility] UA Auto SS WBC Auto Ql (U) Negative (05/01/22 5:20 PM) Normal Negative [facility]A Auto SS WBC LM.HPF (Urine sed) [#/Area] 0-5 /HPF Normal 0-5/HPF [facility] Auto SS BLOOD BANKOrdered By: Shayy Medina on 04-02-2022 ABO/Rh Interp Positive Invalid Interpretation Code [facility] BB Subsection ABSC Gel Interp Negative (04/02/22 7:17 AM) Normal [facility] BB Subsection FMHV 0 mL Invalid Interpretation Code [facility] Man Sero CHEMISTRYOrdered By: SYSTEM SYSTEM on 04-02-2022 Albumin [Mass/Vol] 3.5 g/dL Normal 3.3 - 5.0 gm/dL [facility] Remisol Albumin/Globulin [Mass ratio] 1.2 {ratio} Normal [...] Bilirubin [Mass/Vol] 0.8 mg/dL Normal 0.0 - 1 .1 mg/dL [facility] Bilirubin.direct [Mass/Vol] 0.1 mg/dL Normal 0.1 - 0.4 mg/dL [facility] Bilirubin.indirect [Mass or moles/Vol] 0.7 mg/dL Normal 0.1 - 0.9 mg/dL [facility] Chloride [Moles/Vol] 106 mmol/L Normal 101 - 1 11 mmol/L [facility] CO2 [Moles/Vol] 23 mmol/L Normal 21 - 31 mmol/L [facility] Creatinine [Mass/Vol] 0.7 mg/dL Normal 0.5 - 1.3 mg/dL [facility] GFR/1.73 sq M.predicted among blacks MDRD (S/P/Bld) [Vol rate/Area] mL/min/1.73 m2 Normal >=59mL/min/ 1.73 m2 [facility] Chem S GFR/1.73 sq M.predicted among non-blacks MDRD (S/P/Bld) [Vol rate/Area] mL/min/1.73 m2 Normal >=59mL/min/ 1.73 m2 [facility] Chem S Globulin (S) [Mass/Vol] 3.0 g/dL Normal 1.4 - 4.0 gm/dL [facility] Potassium [Moles/Vol] 3.2 mmol/L Low 3.5 - 5.3 mmol/L [facility] Protein [Mass/Vol] 6.5 g/dL Normal 6.0 - 7.8 gm/dL [facility] Sodium [Moles/Vol] 136 mmol/L Normal 135 - 145 mmol/L [facility] Urate [Mass/Vol] 3.7 mg/dL Normal 2.2 - 7.4 mg/dL [facility] Urea nitrogen [Mass/Vol] 5 mg/dL Normal 5 - 21 mg/dL [facility] COAGULATIONOrdered By: Temi Romero on 04-02-2022 aPTT Coag (PPP) [Time] 30.1 s Normal 25.1 - 36.5 second(s) [facility] Auto Coag Fibrin+Fibrinogen fragments (S) [Mass/Vol] <10 (04/02/22 7:17 AM) Normal <10 [facility] Fibrinogen Coag (PPP) [Mass/Vol] 399 mg/dL High 200 - 393 mg/dL [facility] Coag INR Coag (PPP) [Relative time] 1.1 {INR} Invalid Interpretation Code [facility] Auto Coag PT Coag (PPP) [Time] 12.8 s Normal 10.2 - 12.9 second(s) [facility] Auto Coag HEMATOLOGYOrdered By: Shayy Medina on 04-02-2022 Erythrocyte distribution width (RBC) [Ratio] 13.2 % Normal 10.9 - 14.2 % [facility] Hematocrit (Bld) [Volume fraction] 37.3 % Normal 34.0 - 46.0 % [facility] Hemoglobin (Bld) [Mass/Vol] 12.8 g/dL Normal 12.0 - 16.0 gm/dL [facility] MCH (RBC) [Entitic mass] 31.2 pg Normal 27.0 - 34.0 pg [facility] MCHC (RBC) [Mass/Vol] 34.3 g/dL Normal 31.4 - 36.0 gm/dL [facility] MCV (RBC) [Entitic vol] 91.0 fL Normal 80.0 - 100.0 fL [facility] Platelet mean volume (Bld) [Entitic vol] 8.7 fL Normal 6.4 - 10.8 fL [facility] Platelets (Bld) [#/Vol] 183.0 E9/L Normal 150.0 - 500.0 E9/L [facility] RBC (Bld) [#/Vol] 4.1 E12/L Low 4.3 - 5.9 E12/L [facility] WBC corrected for nucl RBC Auto (Bld) [#/Vol] 8.4 E9/L Normal 4.0 - 11.0 E9/L [facility] URINALYSISOrdered By: Temi Romero on 04-02-2022 [...] AM) Normal Negative [facility] UA Auto SS [place].plasma/[place] .RBC (Bld) [Mass ratio] 0-3 /HPF Normal 0-3/HPF [...] AM) Invalid Interpretation Code 1.005 - 1.030 [facility] UA Auto SS UA Spec Desc Random Urine (04/02/22 6:05 AM) Normal [facility] UA Auto SS Urobilinogen Qn (U) 0.1090600 {Rola'U}/dL Normal 0.0 - 1.0 EU/dL FT [...] PM) Normal Negative [facility] UA Auto SS [place].plasma/[place] .RBC (Bld) [Mass ratio] 0-3 /HPF Normal 0-3/HPF [...] Desc Clean Catch (03/23/22 7:54 PM) Normal [facility] UA Auto SS Urobilinogen Qn (U) 0.6074740 {Rola'U}/dL Normal 0.0 - 1.0 EU/dL [facility] UA Auto SS WBC Auto Ql (U) Negative (03/23/22 7:54 PM) Normal Negative [facility] UA Auto SS WBC LM.HPF (Urine sed) [#/Area] 0-5 /HPF Normal 0-5/HPF [facility] UA Auto SS CHEMISTRYOrdered By: SYSTEM SYSTEM on 03-16-2022 TSH Qn 2.08 m[IU]/L Normal 0.34 - 5.60 mcIU/mL [facility] BLOOD BANKOrdered By: Keila Ring on 02-15-2022 ABO/Rh Interp Positive Invalid Interpretation Code FT BB Subsection ABSC Gel Interp Negative (02/15/22 12:00 PM) Normal FT BB Subsection CHEMISTRYOrdered By: Flipiture SYSTEM on 02-15-2022 TSH Qn 6.70 m[IU]/L High 0.34 - 5.60 mcIU/mL [facility] HEMATOLOGYOrdered By: Keila Ring on 02-15-2022 Erythrocyte distribution width (RBC) [Ratio] 14.3 % High 10.9 - 14.2 % [facility] Hematocrit (Bld) [Volume fraction] 38.7 % Normal 34.0 - 46.0 % [facility] Hemoglobin (Bld) [Mass/Vol] 13.1 g/dL Normal 12.0 - 16.0 gm/dL [facility] MCH (RBC) [Entitic mass] 31.5 pg Normal 27.0 - 34.0 pg [facility] MCHC (RBC) [Mass/Vol] 33.8 g/dL Normal 31.4 - 36.0 gm/dL [facility] MCV (RBC) [Entitic vol] 93.4 fL Normal 80.0 - 100.0 fL [facility] Platelet mean volume (Bld) [Entitic vol] 8.3 fL Normal 6.4 - 10.8 fL [facility] Platelets (Bld) [#/Vol] 248.0 E9/L Normal 150.0 - 500.0 E9/L [facility] RBC (Bld) [#/Vol] 4.1 E12/L Low 4.3 - 5.9 E12/L [facility] WBC corrected for nucl RBC Auto (Bld) [#/Vol] 6.7 E9/L Normal 4.0 - 11.0 E9/L [facility] Reference Laboratory Testing Ordered By: Stephanie Diana on 02-15-2022 Test Code [id number] Invalid Interpretation Code [facility] SendOuts[facility] Test Name IG PAP CTNG HPV Invalid Interpretation Code [facility] CNPNon 05-05-2021 CNPN Telephone ([employer]) ----- RHIANNASUSAN ([id number]) 1995 F Date Time Provider Department 05/05/21 MARTHA WEBB During your visit today, we recorded the following information about you: Tucker Bales Creative Resource Manager 05/05/2021 10:37 AM Signed Patient left message [...] diligent work on this patient Tucker Bales Creative Resource Manager 05/24/2021 2:23 PM Signed patient called and left a message today stating she needs to get this figured out she has not eaten in 3 days and cant even drink water now. Patient can be reached at [phone]- please read messages below for refresher Martha Webb MD 05/24/2021 4:30 PM Signed Please advise patient to go to ER for evaluation Tucker Bales Creative Resource Manager 05/24/2021 4:35 PM Signed Had to leave a message for the patient, left the message to go to ER. Also returned the call to [facility] and spoke to Alejandra that patient needs to go to ER for evalution. Martha Webb MD 05/26/2021 10:21 AM Signed Can you find out if patient went to ER and if so which one so we can get records Tucker Danii Creative Resource Manager 05/26/2021 3:28 PM Signed Pt did not [...] bed and continue this dose - rizatriptan (MAXALT-CRIME SCENE EXAMINER) 10 mg disintegrating tablet Take 1 tablet by mouth as needed for Migraine Headache (see administration instructions). AT ONSET OF HEADACHE. MAY REPEAT AFTER 2 HOURS. DO NOT EXCEED 30 MG PER DAY. Problem List As Of Date: 05/05/2021 (None) Encounter Status:Closed by [facility] HAND TUFTERTUCKER on 05/06/21 [facility] [place] 04-07-2021 CNPN Telephone (TeliAppCON) ----- SUSAN BRO ([id number]) 1995 F Date Time Provider Department 04/07/21 MARTHA WEBB GSTGERBER During your visit today, we recorded the following information about you: Tucker Bales Creative Resource Manager 04/07/2021 12:31 PM Signed [facility] called and they need the GES solid orde rplaced even though she has to use ensure, please sign order in this encounter Allergies As of Date: 04/07/2021 Noted Allergy Reaction PENICILLINS 03/10/2021 2 - Rash Date Reviewed: 04/01/2021 Reviewed by: Odette Agosto MD - Fully Assessed Reason for Visit: Orders [681] Visit Diagnosis:Nausea [R11.0] Order(s):[facility] GASTRIC EMPTYING SOLID [3725330] Order #: [id number] FUTURE Prescriptions as of 04/07/2021 Sig: AMITRIPTYLINE 10 MG TABLET Take 1 tab at bed x 1 week, t* RIZATRIPTAN 10 MG DISINTEGRAT* Take 1 tablet by mouth as nee* Problem List As Of Date: 04/07/2021 (None) Encounter Status:Closed by MARTHA WEBB on 04/07/21 [facility] 04-04-2021 CNPN Telephone (GSTCON) ----- SUSAN BRO ([id number]) 1995 F Date Time Provider Department 04/04/21 MARTHA WEBB During your visit today, we recorded the following information about you: Tucker Bales Creative Resource Manager 04/04/2021 1:40 PM Signed Patient called and is still waiting for you to place the order for her GES with ensure, she cant eat the eggs and toast Martha Webb MD 04/04/2021 4:48 PM Signed Let patient know I placed the order Tucker Bales Creative Resource Manager 04/05/2021 11:41 AM [address] you place [...] Visit Diagnosis:Nausea [R11.0] Order(s):[facility] GASTRIC EMPTYING LIQUID [[id number]] Order #: [id number] FUTURE Prescriptions as of 04/04/2021 Sig: AMITRIPTYLINE 10 MG TABLET Take 1 tab at bed x 1 week, t* RIZATRIPTAN 10 MG DISINTEGRAT* Take 1 tablet by mouth as nee* Problem List As Of Date: 04/04/2021 (None) Encounter Status:Closed by MARTHA WEBB on 04/05/21 [facility] CNOVon 04-01-2021 CNOV Office Visit (NHMNS2 ) ----- SUSAN BRO ([id number]) 1995 F Date Time Provider Department 04/01/21 8:00 AM BERT NEGRETE [facility] During your visit today, we [...] at least 3 months. These include all zpxi-[id number] medications, triptans, narcotics, and butalbital containing medications [...] There h (more content not included)... Normal [facility] 03-22-2021 CNPN Telephone (GSTCON) ----- SUSAN BRO ([id number]) 1995 F Date Time Provider Department 03/22/21 MARTHA WEBB During your visit today, we recorded the following information about you: Tucker Bales Creative Resource Manager 03/22/2021 2:28 PM Signed Received: Today MD Eusebia Banks Cig Clinical Pool; Tucker Bales Creative Resource Manager Let patient know esophagram was normal Next step is gastric emptying study I placed order for gastric emptying study Tucker Danii Fournier 03/22/2021 2:28 PM Signed Pt is notified, will schedule the GES Allergies As of Date: 03/22/2021 Noted Allergy Reaction PENICILLINS 03/10/2021 2 - Rash Date Reviewed: 03/10/2021 Reviewed by: Martha Webb MD - Fully Assessed Reason for Visit: Results [95] Problem List As Of Date: 03/22/2021 (None) Encounter Status:Closed by DANII FOURNIER TUCKER on 03/22/21 Normal [facility] XR ESOPHAGRAMon 03-17-2021 XR ESOPHAGRAM * * [...] symptoms. Other Findings: None. IMPRESSION: Normal esophagram. Guest Room Attendant: LUCITA Transcribe Date/Time: Mar 17 2021 11:15A Dictated by : CRISTÓBAL SALINAS DO This examination was interpreted and the report reviewed and electronically signed by: CRISTÓBAL SALINAS DO on Mar 17 2021 11:18AM EST [id number] [facility] 03-10-2021 OV Office Visit (GSTCON ) ----- SUSAN BRO ([id number]) 1995 F Date Time Provider Department 03/10/21 11:15 AM MARTHA WEBB During your visit today, we recorded the following information about you: Pulse Blood pressure Weight Height 69/minute 108/76 73 kg 1.626 m Martha Webb MD 03/10/2021 12:03 PM Signed This note was created using PowerPractical. Subjective Susan Bro is a 25 year [...] = no improvement Pepcid = no improvement Esophagogastroduodenoscop y 10/2020 Colonoscopy 10/2020 Do not have results of procedure but pathology results below Attempted esophageal manometry but failed due to inability to pass probe thru either nares History of CCY 2 yrs ago - for symptoms of vomiting Headaches present daily occurrence - frontal area Associated with blurry vision No FHx migraine headaches No history of migraine FARIAS treatment No history of imitrex treatment No [...] COMMENT: Un (more content not included)... Normal [facility] CNPNon 03-10-2021 CNPN Telephone (GASTLB) ----- SUSAN BRO ([id number]) 1995 F Date Time Provider Department 03/10/21 MARTHA WEBB During your visit today, we recorded the following information about you: Don Trevino Creative Resource Manager 03/10/2021 1:24 PM Signed Failed fax in [employer] from 03/10/2021 regarding this patient from Dr. Webb. Faxed manually to [phone]. Scanned fax confirmation/documents into [employer]. Don Trevino Creative Resource Manager Allergies As of Date: 03/10/2021 Noted Allergy Reaction PENICILLINS 03/10/2021 2 - Rash Date Reviewed: 03/10/2021 Reviewed by: Martha Webb MD - Fully Assessed Reason for Visit: Electronic Communication [890] Problem List As Of Date: 03/10/2021 (None) Encounter Status:Closed by DON DIAZ on 03/10/21 Normal [facility] CBC WITH AUTO DIFFERENTIALon 10-14-2020 Basophils (Bld) [#/Vol] 0.06 10*3/uL [facility] Basophils/100 WBC (Bld) 0.6 % [facility] Eosinophils (Bld) [#/Vol] 0.36 10*3/uL [facility] Eosinophils/100 WBC (Bld) 3.4 % [facility] Erythrocyte distribution width (RBC) [Entitic vol] 13.2 % 11.6 - 14.8 % [facility] Hematocrit (Bld) [Volume fraction] 43.2 % 36 - 46 % [facility] Hemoglobin (Bld) [Mass/Vol] 14.1 g/dL 12 - 16 g/dL [facility] Immature granulocytes (Bld) [#/Vol] 0.03 10*3/uL [facility] Immature granulocytes/100 WBC (Bld) 0.30 % [facility] Comment on above: The IG parameter is the percentage of metamyelocytes, myelocytes and promyelocytes. An immature granulocyte count (IG) of 1% or more suggests the possibility of infection, an IG count of 3% is very likely related to an infection. Interpretation and review of laboratory results Abnormal [facility] Lymphocytes (Bld) [#/Vol] 1.47 10*3/uL [facility] Lymphocytes/100 WBC (Bld) 13.8 % [facility] MCH (RBC) [Entitic mass] 29.6 pg 26 - 34 pg [facility] MCHC (RBC) [Mass/Vol] 32.6 g/dL 31 - 3 7 g/dL [facility] MCV (RBC) [Entitic vol] 90.6 fL 80 - 100 fL [facility] Monocytes (Bld) [#/Vol] 0.58 10*3/uL [facility] Monocytes/100 WBC (Bld) 5.5 % [facility] Neutrophils (Bld) [#/Vol] 8.12 10*3/uL High [facility] Neutrophils/100 WBC (Bld) 76.4 % [facility] Nucleated RBC (Bld) [#/Vol] 0.00 10*3/uL [facility] Nucleated RBC/100 WBC (Bld) [Ratio] 0.0 % [facility] Platelet mean volume (Bld) [Entitic vol] 10.3 fL 9.4 - 12.4 fL [facility] Platelets (Bld) [#/Vol] 251 10*3/uL [facility] RBC (Bld) [#/Vol] 4.77 10*6/uL [facility] ealth WBC (Bld) [#/Vol] 10.62 10*3/uL [facility] COVID-19/INFLUENZA A,B MOLEC [facility] 10-14-2020 COVID-19/INFLUENZA A,B MOLECULAR SARS-COV-2 (SANA): Not Detected INFLUENZA A (SANA): Not Detected INFLUENZA B (SANA): Not Detected Normal Not Detected [facility] Comment on above: Order Comment: This test [...] at the following links: For Healthcare Providers: https://www.fda.gov/media/518890/download For Patients: https://www.fda.gov/media/635145/download Performed By: #### L [id number] #### [facility] [address], [place] [address] Raffy Yadav M.D. [id number] COVID-19/Influenza A,B [facility] 10-14-2020 Influenza A Not Detected Not Detected [facility] Influenza B Not Detected Not Detected [facility] Interpretation and review of laboratory results Normal [facility] SARS-CoV-2 Not Detected Not Detected [facility] This test was perfor med under the [...] at the following links: For Healthcare Providers: https://www.fda.gov/media /274169/download For Patients: https://www.fda.gov/media /881733/download [facility] CT HEAD OR BRAIN WITHOUT CON TRASTon [...] AM EST Transcribed by: KAREN THAKUR on SunOct 14, 2020 11:28:15 AM EST Finalized by: KAREN THAKUR on SunOct 14, 2020 11:28:15 AM EST Normal [facility] Comment on above: Order Comment: Injur y/Trauma [...] orbits and paranasal sinuses are grossly unremarkable. [facility] 1. No acute intracra nial hemorrhage, focal edema or mass effect. Workstation ID: [id number] [facility], Rad In ji Speechq - 10/14/2020 11:30 AM EST EXAMINATION: [...] edema or mass effect. Workstation ID: [id number] [facility] Chem 7on 10-14-2020 Anion gap [Moles/Vol] 8 mmol/L Low 10 - 2 0 mmol/L [facility] Chloride [Moles/Vol] 112 mmol/L High 98 - 10 8 mmol/L [facility] Creatinine [Mass/Vol] 0.78 mg/dL 0.40 - 1.10 [facility] GFR/1.73 sq M predicted among non-blacks MDRD (S/P/Bld) [Vol rate/Area] The eGFR should be used for monitoring renal function only and not for medication dosing. [facility] GFR/1.73 sq M.predicted CKD-EPI (S/P/Bld) [Vol rate/Area] 105 >=60 mL/min/1.73 m2 [facility] Glucose [Mass/Vol] 78 mg/dL 65 - 99 mg/dL [facility] HCO3 [Moles/Vol] 24 mmol/L 21 - 32 mmol/L [facility] Interpretation and review of laboratory results Abnormal [facility] Potassium [Moles/Vol] 4.5 mmol/L 3.5 - 5.1 mmol/L [facility] Comment on above: moderate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 further questions. 06-19-2022 01:00-0400 Hourly Rounding Luis Carlos Jung [facility] Comment on above: Result Comment: rests in bed on phone. d enies any needs. denies any pain at this time or any pain or cramping since arrival. call light within reach 06-19-2022 00:15-0400 Hourly Rounding Luis Carlos Jung [facility] 06-18-2022 23:54-0400 Body temperature 97.88 [degF] Luis Carlos Jung [facility] 06-18-2022 23:54-0400 Diastolic blood pressure 65 mm[Hg] Luis Carlos Jung [facility] 06-18-2022 23:54-0400 Heart rate 76 /min Luis Carlos Jung [facility] 06-18-2022 23:54-0400 Mean blood pressure 81 mm[Hg] Luis Carlos Jung [facility] 06-18-2022 23:54-0400 Respiratory rate 18 /min Luis Carlos Jung [facility] 06-18-2022 23:54-0400 Systolic blood pressure 112 mm[Hg] Luis Carlos Jung [facility] 06-18-2022 23:45-0400 Blood Pressure Location Luis Carlos Jung [facility] 05-01-2022 17:45-0400 Hourly Rounding Luis Carlos Jung [facility] Comment on above: Result Comment: reviewed disch inst and meds to take states understanding 05-01-2022 17:30-0400 Hourly Rounding Luis Carlos Jung [facility] 05-01-2022 17:23-0400 Body temperature 98.06 [degF] Luis Carlos Jung [facility] 05-01-2022 17:23-0400 Diastolic blood pressure 57 mm[Hg] Luis Carlos Jung [facility] 05-01-2022 17:23-0400 Heart rate 83 /min Luis Carlos Jung [facility] 05-01-2022 17:23-0400 Mean blood pressure 71 mm[Hg] Luis Carlos Jung [facility] 05-01-2022 17:23-0400 Respiratory rate 16 /min Luis Carlos Jung [facility] 05-01-2022 17:23-0400 Systolic blood pressure 99 mm[Hg] Luis Carlos Jung [facility] 05-01-2022 17:15-0400 Blood Pressure Location Luis Carlos Jung [facility] 05-01-2022 17:15-0400 Hourly Rounding Luis Carlos Jung [facility] 04-02-2022 13:30-0400 Hourly Rounding Luis Carlos Jung [facility] Comment on above: Result Comment: pt given discharge instr uctions at this time to follow up with fabiana sunday or states understanding to call office tomorrow for appointment 04-02-2022 12:30-0400 Hourly Rounding Luis Carlos Jung [facility] Comment on above: Result Comment: pt returns to bed from r estroom at this time denies discomfort at this time 04-02-2022 11:30-0400 Hourly Rounding Luis Carlos Jung [facility] Comment on above: Result Comment: pt sitting in bed at thi s time denies needs or discomfort 04-02-2022 06:28-0400 Body temperature 99.68 [degF] Luis Carlos Fabiana [facility] 04-02-2022 06:28-0400 Diastolic blood pressure 68 mm[Hg] Luis Carlos Jung [facility] 04-02-2022 06:28-0400 Heart rate 89 /min Luis Carlos Jung [facility] 04-02-2022 06:28-0400 Heart rate 86 /min Luis Carlos Jung [facility] 04-02-2022 06:28-0400 Mean blood pressure 83 mm[Hg] Luis Carlos Fabiana [facility] 04-02-2022 06:28-0400 Respiratory rate 20 /min Luis Carlos Jung [facility] 04-02-2022 06:28-0400 SaO2% (BldA) [Mass fraction] 98 % Luis Carlos Jung [facility] 04-02-2022 06:28-0400 Systolic blood pressure 114 mm[Hg] Luis Carlos Fabiana [facility] 03-23-2022 21:08-0400 Hourly Rounding Luis Carlos Jung [facility] Comment on above: Result Comment: Patient ambulatory off u nit. No signs or symptoms of distress noted. 03-23-2022 20:35-0400 Hourly Rounding Luis Carlos Jung [facility] Comment on above: Result Comment: Patient updated on plan of care. Verbalizes understanding. Call light in reach. 03-23-2022 19:49-0400 Blood Pressure Location Luis Carlos Jung [facility] 03-23-2022 19:49-0400 Body temperature 98.78 [degF] Luis Carlos Jung [facility] 03-23-2022 19:49-0400 Diastolic blood pressure 66 mm[Hg] Luis Carlos Jung [facility] 03-23-2022 19:49-0400 Heart rate 69 /min Luis Carlos Jung [facility] 03-23-2022 19:49-0400 Hourly Rounding Luis Carlos Jung [facility] Comment on above: Result Comment: Patient arrives on unit. 03-23-2022 19:49-0400 Mean blood pressure 79 mm[Hg] Luis Carlos Jung [facility] 03-23-2022 19:49-0400 Respiratory rate 16 /min Luis Carlos Jung [facility] 03-23-2022 19:49-0400 Systolic blood pressure 106 mm[Hg] Luis Carlos Jung [facility] 10-14-2020 13:15-0500 Pulse (Heart Rate) 74 /min Regine [facility] 10-14-2020 13:15-0500 Pulse Oximetry 98 % [facility] 10-14-2020 13:15-0500 Respiratory Rate 16 /min [facility] 10-14-2020 13:00-0500 BP Diastolic 74 mm[Hg] [facility] 10-14-2020 13:00-0500 BP Systolic 123 mm[Hg] [facility] 10-14-2020 10:13-0500 BMI (Body Mass Index) 34.33 kg/m2 [facility] 10-14-2020 10:13-0500 Body Temperature 97.81 [degF] [facility] 10-14-2020 10:13-0500 Body weight 90.72 kg [facility] 10-14-2020 10:13-0500 Height 162.6 cm [facility] 08-09-2020 20:33-0400 BP Diastolic 81 mm[Hg] [place] 08-09-2020 20:33-0400 BP Systolic 122 mm[Hg] [place] 08-09-2020 20:33-0400 Pulse (Heart Rate) 78 /min [place] 08-09-2020 20:33-0400 Respiratory Rate 16 /min [place] 08-09-2020 19:03-0400 BMI (Body Mass Index) 39.48 kg/m2 [place] 08-09-2020 19:03-0400 Body Temperature 98.29 [degF] [place] 08-09-2020 19:03-0400 Body weight 104.33 kg [place] 08-09-2020 19:03-0400 Height 162.6 cm [place] 08-09-2020 19:03-0400 Pulse Oximetry 98 % [place] Encounters Encounter Date Encounter Type Care Provider Facility Start: 10-18-2023 End: 10-18-2023 ambulatory DODIE MILLER Not Available Start: 10-03-2023 End: 10-03-2023 ambulatory DODIE MILLER Not Available Start: 09-12-2023 End: 09-12-2023 ambulatory RASHAUN PURVIS Not Available Start: 08-23-2023 End: 08-23-2023 Lab Drop off ZORAN J ELEN [facility] Start: 08-23-2023 End: 08-24-2023 ambulatory INSURANCE VERIFICATION REPRESENTATIVE ZORAN J ELEN [place] Start: 08-19-2023 End: 09-14-2023 Pre-admission assessment Julia Gonsalez Isaiahdax [facility] Start: 08-18-2023 End: 08-18-2023 ambulatory DO Julia Gonsalez Isaiahkristina [place] Start: 08-18-2023 End: 08-18-2023 OB Triage Julia Gonsalez Andry [facility] Start: 07-25-2023 End: 07-25-2023 Emergency department patient visit Kristian Guillermo [place] Start: 07-25-2023 End: 07-25-2023 Emergency department patient visit Kristian Guillermo [facility] Start: 06-28-2023 End: 06-29-2023 ambulatory Roverto Crow. Spasic Facility[place] Start: 06-28-2023 End: 06-28-2023 Patient encounter procedure Roverto V. Spasic [facility] Start: 06-14-2023 End: 06-14-2023 Emergency department patient visit Kristian Guillermo [place] Start: 06-14-2023 End: 06-14-2023 Emergency department patient visit Kristian Guillermo [facility] Start: 06-12-2023 End: 06-13-2023 ambulatory Luis Carlos Jung [place] Start: 06-12-2023 End: 06-12-2023 Patient encounter procedure Luis Carlos Jung [facility] Start: 05-21-2023 End: 05-22-2023 Emergency department patient visit DO Gopi Rodriguez [place] Start: 05-21-2023 End: 05-21-2023 Emergency department patient visit Gopi Rodriguez [facility] Start: 04-30-2023 End: 05-01-2023 ambulatory Luis Carlos Montesinosten [place] Start: 04-30-2023 End: 04-30-2023 Lab Drop off Luis Carlos Rochelle Jung [facility] Start: 04-30-2023 End: 05-01-2023 ambulatory Luis Carlos Byrd aFbiana [place] Start: 04-30-2023 End: 04-30-2023 Patient encounter procedure Luis Carlos Rochelle Jung [facility] Start: 04-26-2023 End: 04-26-2023 Emergency department patient visit Laura Noel [place] Start: 04-26-2023 End: 04-26-2023 Emergency department patient visit Laura Sotelorob [facility] Start: 01-31-2023 End: 01-31-2023 Emergency department patient visit Kristian Guillermo [place] Start: 01-31-2023 End: 01-31-2023 Emergency department patient visit Kristian Guillermo [facility] Start: 09-24-2022 End: 09-27-2022 Evaluation and management of inpatient Luis Carlos Jung [place] Start: 09-22-2022 End: 09-22-2022 ambulatory Luis Carlos Jung [place] Start: 09-22-2022 End: 09-22-2022 OB Triage Luis Carlos Jung [facility] Start: 09-20-2022 End: 09-20-2022 ambulatory Luis Carlos Jung [place] Start: 09-20-2022 End: 09-20-2022 OB Triage Luis Carlos Jung [facility] Start: 09-19-2022 End: 09-19-2022 ambulatory Jj MIKE Facility[place] Start: 09-19-2022 End: 09-19-2022 OB Triage Jj MIKE [facility] Start: 09-14-2022 End: 09-14-2022 ambulatory Luis Carlos Rochelle Jung [place] Start: 09-14-2022 Emergency department patient visit DO Carrolemilee vani [place] Start: 09-14-2022 End: 09-14-2022 OB Triage Luis Carlos Jung [facility] Start: 09-12-2022 End: 09-12-2022 ambulatory Luis Carlos Jung [place] Start: 09-12-2022 End: 09-12-2022 OB Triage Luis Carlos Jung [facility] Start: 09-08-2022 End: 09-08-2022 ambulatory Luis Carlos Jung [place] Start: 09-08-2022 End: 09-08-2022 OB Triage Luis Carlos Jung [facility] Start: 09-06-2022 End: 12-06-2022 ambulatory Luis Carlos Rochelle Jung [place] Start: 09-05-2022 End: 09-06-2022 Emergency department patient visit DO Miladysnadia White vani [place] Start: 09-05-2022 End: 09-05-2022 Emergency department patient visit Gopi Rodriguez [facility] Start: 09-05-2022 End: 12-05-2022 Patient encounter procedure SELF REFERRAL [facility] Start: 09-04-2022 End: 09-05-2022 ambulatory Luis Carlos Byrd Fabiana [place] Start: 09-04-2022 End: 09-04-2022 Lab Drop off Luis Carlos Rochelle Jung [facility] Start: 08-30-2022 End: 08-31-2022 ambulatory Luis Carlos Byrd Fabiana [place] Start: 08-30-2022 End: 08-31-2022 OB Triage Luis Carlos Byrd Fabiana [facility] Start: 08-22-2022 End: 08-22-2022 OB Triage Luis Carlos Rochelle Jung [facility] Start: 08-18-2022 End: 08-18-2022 OB Triage Luis Carlos Byrd Fabiana [facility] Start: 08-13-2022 End: 08-13-2022 OB Triage Luis Carlos Byrd Fabiana [facility] Start: 07-26-2022 End: 07-26-2022 OB Triage Luis Carlos Byrd Fabiana [facility] Start: 07-17-2022 End: 07-17-2022 Emergency department patient visit Ko Dumas [facility] Start: 06-28-2022 End: 06-28-2022 Patient encounter procedure Luis Carlos Jung [facility] Start: 06-26-2022 End: 06-26-2022 OB Triage Luis Carlos Jung [facility] Start: 06-20-2022 End: 07-15-2022 Pre-admission assessment Luis Carlos Jung [facility] Start: 06-18-2022 End: 06-19-2022 OB Triage Luis Carlos Jung [facility] Start: 05-02-2022 End: 06-15-2022 Pre-admission assessment THANG MILLAN [facility] Start: 05-01-2022 End: 05-01-2022 OB Triage Luis Carlos Jung [facility] Start: 04-02-2022 End: 04-02-2022 OB Triage Luis Carlos Jung [facility] Start: 03-23-2022 End: 03-23-2022 OB Triage Luis Carlos Jung [facility] Start: 03-16-2022 End: 03-16-2022 Patient encounter procedure Luis Carlos Rochelle Jung [facility] Start: 02-15-2022 End: 02-15-2022 Lab Drop off Luis Carlos Byrd Fabiana [facility] Start: 02-23-2021 End: 02-23-2021 Patient encounter procedure Martha Webb MD Work Phone: [facility] Start: 02-23-2021 Results Only Martha Webb MD Work Phone: Gastroenterology Start: 10-14-2020 End: 10-14-2020 Emergency department patient visit PHYSICIAN NO [facility] Start: 10-14-2020 End: 10-14-2020 Emergency department patient visit Regine Chow Work Phone: [facility] Emergency Department Comment on above: Vertigo (Primary Dx) Start: 08-09-2020 End: 08-09-2020 Emergency department patient visit [facility] Start: 08-09-2020 End: 08-09-2020 Emergency department patient visit [facility] Work Phone: [facility] ED Comment on above: Contusion of right k nee, initial encounter (Primary Dx); Contusion of multiple sites of right shoulder and upper arm, initial encounter Start: 07-23-2017 End: 07-23-2017 Emergency department patient visit NKECHI TORRES [facility] Procedures Date Procedure Procedure Detail Performing [...] with white cell differential, automated Susan Margarita Griffiths Work Phone: Start: 10-14-2020 Complete blood count with white cell differential, manual Susan Margarita Tunde Work Phone: Start: 10-14-2020 COVID-19/INFLUENZA A,B MOLECULAR Susan Griffiths Work Phone: Start: 10-14-2020 Choriogonadotropin ( test) [Presence] in Urine Regine Chow Work Phone: Start: 10-14-2020 End: 10-14-2020 RAINB[address] [...] Court Work Phone: Incision of gallbladder Adán french Jung Plan of Treatment Date Care Activity Detail Author Start: 05-12-2028 Tetanus vaccination Tetanus: Every 1 0yrs [facility] Start: 06-15-2021 Influenza vaccination INFLUENZ A (Season Ended) [facility] Start: 06-15-2020 Influenza vaccination Flu vaccine (# 1) [place], [place] Start: 2014 PAP TESTING PAP TESTING [facility] Start: 2014 Screening for malign ant neoplasm of cervix Cervical cancer screen [place], [place] Start: 2012 DTaP/Tdap/Td vaccine (1 - Tdap) DTaP/Tdap/Td vaccine (1 - Tdap) [place] Start: 2012 Urine microalbumin profile DTAP,TDAP,TD (1 - Tdap) [facility] Start: 2011 Hepatitis C antibody , confirmatory test Hepatitis C Screening [facility] Start: 2011 HEPATITIS C SCREENING HEPATITIS C SC REENING [facility] Start: 2011 HIV SCREENING HIV SCREENING [facility] Start: 2008 [facility] [place] [place] Start: 2005 Adolescent depressio n screening assessment [facility] Start: 2004 HPV vaccine (1 - 2-d ose series) HPV vaccine (1 - 2-dose series) [place], [place] Start: 1996 History and physical examination, annual for health maintenance Wellness Visit [facility] Start: 1994 Varicella vaccine (1 of 2 - 2-dose childhood series) Varicella vaccine (1 of 2 - 2-dose childhood series) [place], [place] Start: 1993 Screening for malign ant neoplasm of cervix Pap Smear [facility] PT ED PATIENT INFORMATION PT ED PATIENT INFORMATION Other 02/23/2021 [facility] Immunizations Immunization Date Immunization Notes Care Provider Lennox ramirez 08-18-2023 influenza, seasonal, injectable Julia Haywood [facility] 09-25-2022 influenza, seasonal, injectable SELF REFERRAL [facility] Comment on above: Early/Late Reason: E isaac/Late Reason: Nursing Judgment 01-28-2021 COVID-19, mRNA, LNP- S, PF, 30 mcg/0.3 mL dose; Translations: [[employer] COVID-19 Vaccine] Luis Carlos Jung [facility] Comment on above: Reason for Medicatio n: Prophylaxis Reason for Medicatio n: Prophylaxis 12-31-2020 COVID-19, mRNA, LNP- S, PF, 30 mcg/0.3 mL dose; Translations: [[employer] COVID-19 Vaccine] Luis Carlos Jung [facility] Comment on above: Reason for Medicatio n: Prophylaxis Reason for Medicatio n: Prophylaxis 05-12-2018 tetanus toxoid, reduced diphtheria toxoid, and acellular pertussis vaccine, adsorbed; Translations: [Adacel (Tdap)] Luis Carlos Jung [facility] Payers Date Payer Category Payer Unknown [id number] 2019 Unknown [id number] 1. [id number] 1993 Unknown [id number] 2.16.8 40.1.139091.3.579.2.173 1993 Unknown [id number] 2.16. 840.1.508416.3.579.2.903 1993 Unknown [id number] 2.16.8 40.1.500626.3.579.2.727 1993 Unknown [id number] 2.16.8 40.1.702698.3.579.2.727 1993 Unknown [id number] 2.16.8 40.1.657083.3.579.2.727 1993 Unknown [id number] 2.16.8 40.1.163636.3.579.2.727 1993 Unknown [id number] 2.16.8 40.1.107261.3.579.2.727 1993 Unknown [id number] 2.16.8 40.1.418010.3.579.2.727 1993 Unknown [id number] 2.16.8 40.1.797791.3.579.2.727 1993 Unknown [id number] 2.16.8 40.1.016598.3.579.2.72 1993 Unknown [id number] 2.16.8 40.1.167235.3.579.2.72 1993 Unknown [id number] 2.16.8 40.1.383170.3.579.2. 1993 Unknown [id number] 2.16.8 40.1.422238.3.579.2. 1993 Unknown [id number] 2.16.8 40.1.463207.3.579.2. 1993 Unknown [id number] 2.16.8 40.1.264580.3.579.2. 1993 Unknown [id number] 2.16.8 40.1.859580.3.579.2. 1993 Unknown [id number] 2.16.8 40.1.018334.3.579.2. 1993 Unknown [id number] 2.16.8 40.1.937639.3.579.2. 1993 Unknown [id number] 2.16.8 40.1.456822.3.579.2 1993 Unknown [id number] 2.16.8 40.1.891142.3.579.2. 1993 Unknown [id number] 2.16.8 40.1.704291.3.579.2. 1993 Unknown [id number] 2.16.8 40.1.226046.3.579.2. 1993 Unknown [id number] 2.16.8 40.1.558056.3.579.2. 1993 Unknown [id number] 2.16.8 40.1.732338.3.579.2. 1993 Unknown [id number] 2.16.8 40.1.832004.3.579.2.72 1993 Unknown [id number] 2.16.8 40.1.975564.3.579.2.727 1993 Unknown [id number] 2.16.840 .1.742432.3.579.2.1259 1993 Unknown [id number] 2.16.840 .1.458164.3.579.2.1259 1993 Unknown [id number] 2.16.840 .1.592023.3.579.2.1259 1993 Unknown [id number] 2.16.840 .1.679586.3.579.2.1259 Social History Date Type Detail Facility Start: 08-09-2020 End: 10-14-2020 Tobacco smoking status NHIS Current every day smoker [place] Start: 08-09-2020 End: 10-14-2020 Tobacco use and exposure Never used [place] Start: 10-14-2020 Alcohol intake Ex-drinker (finding) [facility] Start: 1995 Sex Assigned At Not on file [place], [place] Exposure to SARS-CoV -2 (event) Not sure [place] Start: 08-09-2020 Cigarettes smoked current (pack per day) - Reported [place] Start: 08-09-2020 Alcohol intake Lifetime non-d val (finding) [place] Start: 08-09-2020 History SDOH Alcohol Frequency 1 [place] Start: 07-06-2021 End: 08-18-2022 Tobacco smoking status Light tobacco smoker (finding) [facility] Sex Assigned At Female [facility] Tobacco [facility] Comment on above: current current denies Start: 06-28-2023 Tobacco smoking status Ex-smoker (fi nding) [facility] Comment on above: current Tobacco smoking status Never [facility] Comment on above: current Tobacco smoking status No Smokin g Status Entered [facility] Functional Status Date Assessment Result Facility 08-18-2023 Functional Status N/A [facility] 07-25-2023 Functional Status N/A [facility] 06-28-2023 Functional Status N/A [facility] 06-14-2023 Functional Status N/A [facility] 05-21-2023 Functional Status N/A [facility] 04-26-2023 Functional Status N/A [facility] 01-31-2023 Functional Status N/A [facility] 09-22-2022 Functional Status N/A [facility] 09-20-2022 Functional Status N/A [facility] 09-19-2022 Functional Status N/A [facility] 09-14-2022 Functional Status N/A [facility] 09-12-2022 Functional Status N/A [facility] 09-08-2022 Functional Status N/A [facility] 09-05-2022 Functional Status Yes [facility] 08-30-2022 Functional Status N/A [facility] 08-22-2022 Functional Status N/A [facility] 08-18-2022 Functional Status N/A [facility] 08-13-2022 Functional Status N/A [facility] 07-26-2022 Functional Status N/A [facility] 07-17-2022 Functional Status N/A [facility] 06-26-2022 Functional Status N/A [facility] 06-18-2022 Functional Status N/A [facility] 05-01-2022 Functional Status N/A [facility] 04-02-2022 Functional Status N/A [facility] Clinical Notes 03-10-2021 to 08-23-2023 Note Date & Type Note Facility 08-23-2023 Evaluation + Plan note Diagnostic Tests PendingT3 Total 08/23/23 [facility] 08-18-2023 Note The following Patien t Education Materials have been given to the patient: EducationMaterial [facility] 08-18-2023 Hospital Discharg e instructions Patient Education 08/18/2023 08:14:46 Second Trimester of , Hvms-rs-Orcc Second Trimester of The second trimester of [...] Follow these instructions at home: Medicines Take bkfg-mdn-zviqahu and prescription medicines only as told by [...] a counselor. Where to find more information [place] Association: americanpregnancy.org [employer] [employer]: www.acog.org Office [...] provider. Document Revised: 03/09/2021 Document Reviewed: 01/13/2021 [employer] Patient Education 2022 [employer]. [facility] 07-25-2023 Evaluation + Plan note Extrac francisca from: Title:ED Note Author:Jorge Velarde PA-C e:07/25/23 Abdominal cramping (R10.9: U nspecified abdominal pain) Vaginal spotting (N93.9: Abnormal uterine and vaginal bleeding, unspecified) Orders: ABO/Rh Automated Diff Basic Metabolic Panel Beta hCG Quantitative CBC w/ Auto Diff eGFR Extra Blue Tube Extra SST Tube Hepatic Function Panel Lipase Level UA With Cult Reflex Urine Culture US Limited Diagnostic Tests Pending * Urine Culture 07/25/23 [facility]10-11-2023 Hospital Discharge instructions Patient Education 07/25/2023 [...] to keep your urine pale yellow. Take ftkn-rhc-csjszcp and prescription medicines only as told by [...] provider. Document Revised: 06/14/2021 Document Reviewed: 06/14/2021 [employer] Patient Education 2022 [employer]. Follow Up Care 07/25/2023 08:14:26 With:Luis Carlos Jung Address: [address] [address] [facility] (1) When:07/28/2023 09:56:27 [facility]09-14-2023 Evaluation + Plan note Diagnostic Tests Pending * Urine Culture 06/28/23 [facility]09-14-2023 Hospital Discharge instructions Patient Education 06/28/2023 11:39:14 Urinary Tract Infection, Adult, Njgl-hd-Mpwe Urinary Tract Infection, Adult A urinary tract [...] Follow these instructions at home: Medicines Take mrha-rwn-zwyznqr and prescription medicines only as told by [...] provider. Document Revised: 05/13/2021 Document Reviewed: 05/13/2021 [employer] Patient Education 2022 [employer]. 06/28/2023 11:39:14 Urinary Tract Infection, Adult, Enco-fj-Rdam Urinary Tract Infection, Adult A urinary tract [...] Follow these instructions at home: Medicines Take amue-nbs-txgvqjb and prescription medicines only as told by [...] provider. Document Revised: 05/13/2021 Document Reviewed: 05/13/2021 [employer] Patient Education 2022 [employer]. Follow Up Care 06/28/2023 10:22:58 With:Fabiana MARION, Luis Carlos Byrd, SAMPSON Address: [facility] [address] [id number]- When: Unknown [facility] 08-31-2023 Evaluation + Plan noteExtracted from: Title:ED Note Author:Jos Ugalde PA-C te:06/14/23 1. Abdominal pain (R10.9: Un specified abdominal pain) Orders: ABO/Rh Automated Diff Basic Metabolic Panel Beta hCG Quantitative CBC w/ Auto Diff eGFR Extra Blue Tube Extra SST Tube Hepatic Function Panel Lipase Level UA With Cult Reflex US 1st Trimester [facility]08-08-2023 Hospital Discharge instructions Patient Education 05/21/2023 23:23:44 Nonspecific Chest Pain, Adult, Hfdo-gs-Clay Nonspecific Chest Pain Chest pain can be [...] Follow these instructions at home: Medicines Take hmpv-qcw-gwvlvpx and prescription medicines only as told by [...] ?Eating a heart-healthy diet. A diet and nutritional chemist (dietitian) can help you to learn healthy [...] provider. Document Revised: 12/15/2021 Document Reviewed: 12/15/2021 [employer] Patient Education 2022 [employer]. 05/21/2023 23:23:44 Nausea and Vomiting, Adult, Ypvt-bv-Bfgv Nausea and Vomiting, Adult Nausea is feeling [...] fruit juice). ?Low-calorie sports drinks. Eat bland, jilk-ja-shvwdh foods in small amounts as you are able, such as: ?Bananas. ?Applesauce. ?Rice. ?Low-fat (lean) meats. ?[place]. ?Crackers. Avoid drinking fluids that have a lot of sugar or caffeine in them. This includes energy drinks, sports drinks, and soda. Avoid alcohol. Avoid spicy or fatty foods. General instructions Take ygqt-zso-pwzqbce and prescription medicines only as told by your doctor. Drink enough fluid to keep your pee (urine) pale yellow. Wash your hands often with soap and water for at least 20 seconds. If you cannot use soap and water, use hand teacher associate. Make sure that everyone in your home [...] your doctor about eating and drinking. Take ujbh-rkp-xrzykks and prescription medicines only as told by your doctor. Contact your doctor if your symptoms get worse or you have new symptoms. Keep all follow-up visits. This information is not intended to replace advice given to you by your health care provider. Make sure you discuss any questions you have with your health care provider. Document Revised: 04/07/2022 Document Reviewed: 04/07/2022 [employer] Patient Education 2022 [employer]. 05/21/2023 23:23:44 Abdominal Pain During , Bqqb-yv-Cqek Abdominal Pain During Belly (abdominal) pain is [...] keep your pee (urine) pale yellow. Take xhuf-ntc-inpbhfs and prescription medicines only as told by [...] provider. Document Revised: 06/14/2021 Document Reviewed: 06/14/2021 [employer] Patient Education 2022 [employer]. Follow Up Care 05/21/2023 20:38:52 With:Luis Carlos Jung Address: [address], [facility] [place] [address]- Business (1) When:05/24/2023 Comments:Take the Pepcid once daily until you have completed the course. You can use the Zofran every 6 hours as needed for nausea and vomiting. Please follow-up with your primary care doctor next 2 to 3 days. Please return to the ED for any new or worsening symptoms. [facility]08-07-2023 Evaluation + Plan noteExtracted from: Title:ED [...] day(s), # 15 cap(s), Refills(s) 0, Pharmacy: [facility], 162.6, cm, 05/21/23 20:50:00 EDT, Height/Length Dosing, 75.3, kg, 05/21/23 20:50:00 EDT, Weight Dosing famotidine, 20 mg = 2 mL, Soln-IV, IV Push, Once, Stop date 05/21/23 21:00:00 EDT, STAT, Start date 05/21/23 21:00:00 EDT, 05/21/23 21:00:00 EDT famotidine, 20 mg = 1 tab(s), Oral, Daily, # 14 tab(s), Refills(s) 0, Pharmacy: [facility], 162.6, cm, 05/21/23 20:50:00 EDT, Height/Length Dosing, 75.3, kg, 05/21/23 20:50:00 EDT, Weight Dosing ondansetron, 4 mg = 2 mL, Injection, IV Push, Once, Stop date 05/21/23 21:00:00 EDT, STAT, Start date 05/21/23 21:00:00 EDT, 05/21/23 21:00:00 EDT ondansetron, 4 mg = 1 tab(s), Oral, q8hr, # 12 tab(s), Refills(s) 0, Pharmacy: [facility], 162.6, cm, 05/21/23 20:50:00 EDT, [...] UA With Cult Reflex US 1st Trimester [facility]07-17-2023 Evaluation + Plan note Diagnostic Tests Pending * PAP [id number] 04/30/23 * Urine Culture 04/30/23 [facility]07-17-2023 Evaluation + Plan note Diagnostic Tests Pending * RPR with Conf Rfx 04/30/23 * HIV Screen 4th Generation wRfx 04/30/23 * Rubella Antibody IgG 04/30/23 * Hepatitis B Surface Antigen 04/30/23 [facility]07-13-2023 Evaluation + Plan noteExtracted from: Title:ED Note Author:Jos Ugalde PA-C te:04/26/23 Abdominal pain (R10.9: Unspe cified abdominal pain) (Z34.90: Encounter for supervision of normal , unspecified, unspecified trimester) Orders: Beta hCG Quantitative Extra Lav Tube Extra SST Tube US 1st Trimester US Transvaginal [facility]07-13-2023 Hospital Discharge instructions Patient Education 04/26/2023 [...] to keep your urine pale yellow. Take ltad-umw-lhpqpys and prescription medicines only as told by [...] Document Reviewed: 06/14/2021 Elsevier Patient Education 2022 [employer]. Follow Up Care 04/26/2023 08:52:22 With:Luis Carlos Jung Address: [address], [facility] [place] [address] Business (1) When:04/29/2023 10:58:02 [facility]04-19-2023 Evaluation + Plan noteExtracted from: Title:ED [...] Head eGFR Oxygen Therapy PT & PTT [facility]04-19-2023 Hospital Discharge instructions Patient Education 01/31/2023 [...] Follow these instructions at home: Medicines Take foio-rox-jiqntwu and prescription medicines only as told by your health care provider. Ask your health care provider if the medicine prescribed to you: ?Requires you to avoid driving or using heavy machinery. ?Can cause constipation. You may need to take these actions to prevent or treat constipation: ?Drink enough fluid to keep your urine pale yellow. ?Take crtv-jrs-bcuzkai or prescription medicines. ?Eat foods that are [...] provider. Document Revised: 01/23/2020 Document Reviewed: 11/13/2019 [employer] Patient Education 2022 [employer]. Follow Up Care 01/31/2023 09:42:02 With:THANG MILLAN Address: [address] [place], [place] [id number] [facility] (1) When:02/03/2023 11:57:07 Comments:Call the office of [...] fever, or any new or worsening symptoms. [facility]12-16-2022 [facility] Inc[facility] on above:Result Comment: Electronically Signed By: Luis Carlos Jung MD\.br\Date and Time Signed: 09/29/22 09:25 [id number] [facility] Comment on above:Result Comment: Electronically Signed By: Luis Carlos Jung MD\.br\Date and Time Signed: 09/29/22 09:25 [id number] NoteThe following Patient Education Materials have been given to the patient: [facility]12-09-2022 NoteThe following Patient Education Materials have been given to the patient: [facility]12-09-2022 Hospital Discharge instructions Follow Up Care 09/22/2022 15:11:14 With:Luis Carlos Jung Address: [address] [place] [id number] Business (1) When:09/24/2022 20:30:00 Comments:Appointment has already been scheduledCall for any problems.Call for fever > 100.5 FCall for severe abdominal painCall physician for heavy vaginal bleedingCall physician if symptoms worsenReturn for contractions closer, longer, harderReturn for decreased movementReturn if ruptured membranes or vaginal bleedingCall at 7:30 pm Sunday to confirm induction at 8:30 [facility]12-07-2022 NoteThe following Patient Education Materials have been given to the patient: [facility]12-06-2022 NoteThe following Patient Education Materials have been given to the patient: [facility]12-06-2022 Hospital Discharge instructions Follow Up Care 09/19/2022 01:24:08 With:Luis Carlos Jung Address: [address] [place] [address], [facility] [address] [place] [address] Business (1) When:09/20/2022 Comments:Appointment has already been scheduledCall Dr if fever>100.5 F, heavy bleedingCall for any problems.Call for severe abdominal painCall physician for heavy vaginal bleedingCall physician if symptoms worsenReturn for contractions closer, longer, harderPlease call if you need to rescheduleReturn for decreased movementReturn if ruptured membranes or vaginal bleeding [facility]12-01-2022 NoteThe following Patient Education Materials have been given to the patient: [facility]12-01-2022 Hospital Discharge instructions Patient Education 09/14/2022 11:56:10 Sinus Headache, Uxxq-xx-Vjrj Sinus Headache A sinus headache happens when [...] on the bottle or box. Medicines Take ctam-hmu-wwddwat and prescription medicines only as told by [...] face, forehead, ears, or upper teeth. Take jmit-fyb-ujqvfke and prescription medicines only as told by your doctor. If told, apply a warm, moist washcloth to your face. This can help to lessen pain. This information is not intended to replace advice given to you by your health care provider. Make sure you discuss any questions you have with your health care provider. Document Released: 01/31/2012 Document Revised: 09/13/2018 Document Reviewed: 07/12/2018 [employer] Patient Education 2020 [employer] Follow Up Care 09/14/2022 09:13:06 With:Luis Carlos Jung Address: [address] [place] [address] [place], [place] [id number] [facility] (1) When:09/20/2022 Comments:Return if ruptured membranes or vaginal bleedingReturn for decreased movementReturn for contractions closer, longer, harderCall physician if symptoms worsenCall for severe abdominal painCall for fever > 100.5 F Drink 8-10 glasses of water/day Use SUDAFED, TYLENOL AND BENADRYL as previouslydirected by Dr Fabiana Longoria [facility]11-29-2022 NoteThe following Patient Education Materials have been given to the patient: [facility] Hospital Discharge instructions Patient Education 09/12/2022 20:39:28 Third Trimester of , Kmht-ug-Hfct Third Trimester of The third trimester is from week 28 through week 40 (months 7 through 9). This trimester is when your unborn baby (fetus) is growing very fast. At the end of the ninth month, the unborn baby is about20 inches in length. It weighs about 6 10 pounds. Follow these instructions at home: Medicines Take bics-tyg-fclybsj and prescription medicines only as told by [...] 12/26/2010 Document Revised: 01/22/2020 Document Reviewed: 11/06/2017 [employer] Patient Education 2019 [employer]. Follow Up Care 09/12/2022 19:44:10 With:Luis Carlos Jung Address: [address] [facility] [address] [place] [address]- Business (1) When:09/20/2022 Comments:Appointment has already been scheduledCall Dr if fever>100.5 F, heavy bleedingCall for any problems.Call for severe abdominal painCall physician for heavy vaginal bleedingCall physician if symptoms worsenPlease call if you need to rescheduleReturn for contractions closer, longer, harderReturn for decreased movementReturn if ruptured membranes or vaginal bleeding [facility]11-25-2022 NoteThe following Patient Education Materials have been given to the patient: EducationM[facility]iSelect [facility]2022 Hospital Discharge instructions Follow Up Care 09/08/2022 08:14:23 With:Luis Carlos Jung Address: [address], [facility] [address] [place] [address]- Business (1) When:09/11/2022 Comments:Return for contractions closer, longer, harderReturn for decreased movementReturn if rupturedmembranes or vaginal bleeding [facility]11-23-2022 Hospital Discharge instructions Patient Education 09/05/2022 [...] the coronavirus come from? In September 2019, [place] told the World Health Organization (WHO) of several cases of lung disease (human respiratory illness). These cases were linked to an open seafood and livestock market in the [facility]. The link to the seafood [...] and virus naming World Health Organization (WHO): www.who.int/emergencies/diseases/onfpp-wtabpirpyqk-4647/technical-g uidance/okfqwl-xsu-ocymdfslchu-disease-(covid-2019)-dox-oky-mxcov-gzok-oqlqrg-ln Who is at risk for complications from [...] relieve his or her symptoms by using whtb-zqs-wcgyyvc medicines that treat sneezing, coughing, and runny [...] water are not available, use alcohol-based hand teacher associate. Avoid touching your face, mouth, nose, or [...] Prevention (CDC): www.cdc.gov/coronavirus/2019-ncov/travelers/index.html World Health Organization (WHO): www.who.int/emergencies/diseases/ikknn-ofkscsckirq-3306/travel-advice Know the risks and take action to [...] water are not available, use alcohol-based hand teacher associate. Cough or sneeze into a tissue, sleeve, [...] in hot, soapy water or use a stiff leg operator. Air-dry your dishes. Wash laundry in hot [...] Health Organization (WHO) Information and news updates: www.who.int/emergencies/diseases/juhcb-zjhnhgkcajk-2124 Coronavirus health topic: www.who.int/health-topics/coronavirus Questions and answers on COVID-19: www.who.int/news-room/q-a-detail/l-o-rukkdftpyetkw Global tracker: who.Go2call.com.SpotMe [employer] [employer] (AAP) Information for families: www.healthychildren.org/Israeli/health-issues/conditions/chest-lungs/Pages /2690-Qroda-Wxrbtnrsvsn.aspx The coronavirus situation is changing rapidly. Check [...] 01/27/2020 Document Revised: 01/27/2020 Document Reviewed: 01/27/2020 [employer] Patient Education 2019 [employer]. 09/05/2022 22:13:40 COVID-19 COVID-19 COVID-19 is a [...] to fight infection (immunocompromised). Live in a mcfp or long-term care facility. Have a long-term [...] managed at home with rest, fluids, and ehjr-xul-anbvoar medicines. Treatment for a serious infection usually [...] are safe for you. General instructions Take tffu-hhq-jhbetms and prescription medicines only as told by [...] high-risk areas and travel restrictions, check the [facility] travel website: wwwnc.cdc.gov/travel/notices If you live in, or must travel to, an area where COVID-19 is a risk, take precautions to avoid infection. ?Stay away from people who are sick. ?Wash your hands often with soap and water for 20 seconds. If soap and water are not available, usean alcohol-based hand teacher associate. ?Avoid touching your mouth, face, eyes, or [...] water are not available, use alcohol-based hand teacher associate. Stay away from other members of your [...] have a weak immunity, live in a mcfp, or have chronic disease. There is no [...] 11/06/2019 Document Revised: 02/26/2020 Document Reviewed: 11/06/2019 [employer] Patient Education 2019 [employer] Follow Up Care 09/05/2022 20:08:29 With:Luis Carlos Jung Address: [facility] [address] [address]- Business (1) When:09/08/2022 21:42:10 Comments:Use the albuterol inhaler 2 puffs every 4 hours for the next 2 to 3 days, you can use the Zofran every 6 hours as needed for nausea and vomiting. Please follow-up with your primary care doctor in thenext 2 to 3 days. Please return to the ED for any new or worsening symptoms. With:THANG MILLAN Address: [address] [place] [address] Business (1) When:09/08/2022 21:42:06 [facility]11-22-2022 Evaluation + Plan noteExtracted from: Title:ED [...] Nausea/Vomiting, # 12 tab(s), Refills(s) 0, Pharmacy: [facility], 163, cm, 09/05/22 20:14:00 EST, [...] Therapy PT & PTT Rapid COVID Antigen ([facility]) Saline Lock Insert Troponin 0 Hr. XR Chest Single View Future Appointments Appointment Date:09/06/2022 07:00:00 AM Scheduled [facility]: [facility] Type:Outpatient COVID Testing [facility]11-21-2022 Evaluation + Plan note Diagnostic Tests Pending * Group B Streptococcus colonization by PCR 09/04/22 [facility]11-17-2022 NoteThe following Patient Education Materials have been given to the patient: [facility] Hospital Discharge instructions Patient Education 08/31/2022 00:56:47 Third Trimester of , Tymt-rw-Eisd Third Trimester of The third trimester is from week 28 through week 40 (months 7 through 9). This trimester is when your unborn baby (fetus) is growing very fast. At the end of the ninth month, the unborn baby is about20 inches in length. It weighs about 6 10 pounds. Follow these instructions at home: Medicines Take hbgy-imv-plrijct and prescription medicines only as told by [...] 12/26/2010 Document Revised: 01/22/2020 Document Reviewed: 11/06/2017 [employer] Patient Education 2020 [employer]. Follow Up Care 08/30/2022 21:31:53 With:Luis Carlos Jung Address: [place] [address] [address]- Business (1) When:09/04/2022 Comments:Call for any problems.Call for severe abdominal painCall physician for heavy vaginal bleedingReturnfor contractions closer, longer, harderReturn for decreased movementReturn if ruptured membranes or vaginal bleeding [facility]11-08-2022 Hospital Discharge instructions Follow Up Care 08/22/2022 14:58:59 With:Dr. 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 [facility]11-04-2022 Evaluation + Plan note Diagnostic Tests Pending * Urine Culture 08/18/22 [facility]11-04-2022 Hospital Discharge instructions Follow Up Care 08/18/2022 03:47:49 With:Luis Carlos Jung Address: [address] [address] [facility] (1) When:08/21/2022 08:45:00 Comments:Appointment has already been scheduled, please keep scheduled apptCall for any problems.Call physician if symptoms worsen [facility]10-30-2022 Hospital Discharge instructions Patient Education 08/13/2022 [...] 10/31/2007 Document Revised: 10/21/2019 Document Reviewed: 11/09/2016 [employer] Patient Education 2020 [employer] 08/13/2022 19:55:11 Monitoring Overview Monitoring Overview [...] 09/21/2003 Document Revised: 06/25/2018 Document Reviewed: 04/30/2017 [employer] Patient Education UrtheCast Follow Up Care 08/13/2022 17:29:42 With:Luis Carlos Jung Address: [address] [address] [facility] (1) When:1 to 2 days Comments:Call for any problems.Return for contractions closer, longer, harderReturn for decreased movementReturn if ruptured membranes or vaginal bleeding [facility]10-13-2022 Hospital Discharge instructions Follow Up Care 07/27/2022 01:12:54 With:Dr. Jung [phone] Address:Unknown When:09/24/2022 20:30:00 Comments:Call for any problems.Return if ruptured membranes or vaginal bleedingReturn for decreased movementcontractions every 5 minutes lasting 45 seconds for an hourCall Sunday night at 7:30 PM to assure bed availability for induction [facility]10-12-2022 Hospital Discharge instructions Patient Education 07/26/2022 [...] Follow these instructions at home: Medicines Take ztyg-jol-mvmeyro and prescription medicines only as told by [...] as fried or sweet foods. ?Take an pqpn-ttj-rhfglon or prescription medicine for constipation. If you [...] 12/28/2009 Document Revised: 05/28/2019 Document Reviewed: 11/11/2018 [employer] Patient Education UrtheCast Follow Up Care 07/26/2022 07:56:25 With:Luis Carlos Jung Address: [address], [place] [id number] Business (1) When:08/07/2022 07:45:00 [facility]10-03-2022 Evaluation + Plan noteExtracted from: Title:ED Note Author:Hi Carmona PA-C te:07/17/22 UTI (urinary tract infection ) (N39.0: Urinary tract infection, site not specified) Orders: cephalexin, 500 mg = 1 cap(s), Oral, q12hr, X 5 day(s), # 10 cap(s), Refills(s) 0, Pharmacy: [facility], 162.5, cm, 07/17/22 9:09:00 EDT, Height/Length Dosing, 80, kg, 07/17/22 9:09:00 EDT, Weight Dosing Patient Specific Meds, Each, Misc, Once, Stop date 07/17/22 9:10:34 EDT, Physician Stop, 07/17/22 9:10:34 EDT Influenza A&B Ag Rapid COVID Antigen ([facility]) UA With Cult Reflex [facility]10-03-2022 Hospital Discharge instructions Patient Education 07/17/2022 [...] 01/26/2012 Document Revised: 01/23/2020 Document Reviewed: 09/04/2019 [employer] Patient Education 2020 [employer]. 07/17/2022 09:55:44 Urinary Tract Infection, Adult Urinary [...] Treatment for this condition includes: Antibiotic medicine. Indj-mfe-xemrlqo medicines to treat discomfort. Drinking enough water [...] Follow these instructions at home: Medicines Take yvwq-lbb-tpcnbtj and prescription medicines only as told by [...] 07/11/2006 Document Revised: 09/18/2019 Document Reviewed: 04/10/2019 ElseKromek Patient Education 2020 [employer] Follow Up Care 07/17/2022 09:04:38 With:Luis Carlos Jung Address: [address] [address]- Business (1) When:07/20/2022 09:46:49 With:THANG MILLAN Address: [address] [place] [address] [facility] (1) When:07/20/2022 09:46:41 Comments:Follow-up with your primary care provider in 3 to 5 days. If symptoms worsen, do not improve, or new symptoms arise please report back to emergency department for further evaluation. [facility]09-14-2022 Evaluation + Plan note Diagnostic Tests Pending * RPR with Conf Rfx 06/28/22 [facility]09-12-2022 Hospital Discharge instructions Patient Education 06/26/2022 [...] 09/21/2003 Document Revised: 06/25/2018 Document Reviewed: 04/30/2017 [employer] Patient Education 2020 [employer]. 06/26/2022 21:35:59 Form - Movement Counts Movement [...] 10/31/2007 Document Revised: 10/21/2019 Document Reviewed: 11/09/2016 [employer] Patient Education 2020 [employer]. Follow Up Care 06/26/2022 20:41:33 With:Luis Carlos Jung Address: [address] [address]- Business (1) When:07/03/2022 07:45:00 Comments:Call for any problems.Please call if you need to rescheduleReturn for decreased movement [facility]09-05-2022 Hospital Discharge instructions Follow Up Care 06/18/2022 23:33:38 With:Luis Carlos Jung Address: [address] [address] Business (1) When:5 to 7 days Comments:Appointment has already been scheduledCall for any problems.Call for fever > 100.5 FCall for severe abdominal painCall physician for heavy vaginal bleedingPlease call if you need to rescheduleReturn for contractions closer, longer, harderReturn for decreased movementReturn if ruptured membranes or vaginal bleeding [facility]07-18-2022 Hospital Discharge instructions Follow Up Care 05/01/2022 17:08:54 With:Luis Calros Jung Address: [address], [facility] [address] [place] [address]- Business (1) When:05/09/2022 Comments:Return if ruptured membranes or vaginal bleedingReturn for contractions closer, longer, harderCall physician if symptoms worsenCall physician for heavy vaginal bleedingCall for severe abdominal painCall for fever > 100.5 FCall for any problems. drink more fluids including gatorade, take milk of magnesia twice /day until yo u have bowel movements, benefiber daily [facility]06-19-2022 Evaluation + Plan note Diagnostic Tests Pending * Urine Culture 6/19/22 [facility]06-19-2022 Hospital Discharge instructions Patient Education 04/02/2022 10:22:48 Second Trimester of , Nvkm-fy-Bthq Second Trimester of The second trimester is [...] Follow these instructions at home: Medicines Take nxed-psr-ygyzgax and prescription medicines only as told by [...] 12/26/2010 Document Revised: 01/23/2020 Document Reviewed: 11/06/2017 [employer] Patient Education 2020 [employer]. 04/02/2022 10:22:48 Vaginal Bleeding During , Second [...] says that this is safe. Medicines Take hhke-ipw-cnfsrua and prescription medicines only as told by [...] 07/11/2006 Document Revised: 01/20/2020 Document Reviewed: 01/03/2018 Elsevier Patient Education 2020 [employer] Follow Up Care 04/02/2022 06:00:26 With:Dr. Jung [phone] Address:Unknown When:2 to 3 days Comments:Call for any problems.Call physician if symptoms worsen [facility]06-09-2022 Hospital Discharge instructions Patient Education 03/23/2022 20:39:21 Second Trimester of , Jcet-ct-Krnr Second Trimester of The second trimester is [...] Follow these instructions at home: Medicines Take esmc-ddr-nypaefj and prescription medicines only as told by [...] 12/26/2010 Document Revised: 01/23/2020 Document Reviewed: 11/06/2017 [employer] Patient Education 2020 [employer]. 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 Avoid heavy [...] grounds. You are around people who have Panamanian measles, fifth disease, or chickenpox. You have [...] 03/19/2009 Document Revised: 01/22/2020 Document Reviewed: 10/09/2017 [employer] Patient Education 2020 [employer]. 03/23/2022 20:39:21 Abdominal Pain During , Osbr-mq-Zxlx Abdominal Pain During Belly (abdominal) pain is [...] keep your pee (urine) pale yellow. Take ujxv-kdn-yrfoczz and prescription medicines only as told by [...] 09/19/2010 Document Revised: 01/19/2020 Document Reviewed: 01/03/2018 [employer] Patient Education 2020 [employer]. Follow Up Care 03/23/2022 19:35:57 With:Luis Carlos Jung Address: [address] [place] [address] [address] Business (1) When:03/27/2022 10:00:00 Comments:Call for any problems. Call [facility] first, ask to speak directly to Dr. Jung before heading to hospital unless an emergency. Call for severe abdominal pain or worsening pain.Return if vaginal bleedingor ruptured membranes.Wear belly band as much as possible, especially as your belly grows in . [facility]05-04-2022 Evaluation + Plan note Diagnostic Tests Pending * RPR with Conf Rfx 02/15/22 * HIV Screen 4th Generation wRfx 02/15/22 * Rubella Antibody IgG 02/15/22 * Hepatitis B Surface Antigen 02/15/22 * Urine Culture 02/15/22 [facility]06-18-2021 NoteHNO ID: [id number] Author: Bert Negrete, DO Service: ? Author Type: Fellow Type: Progress Notes Filed: 04/01/2021 9:15 AM Note Text: [facility] [address] [place], [place] [address] Martha Webb ([facility]) [address] [place] [facility] [address] PCP: Thang Millan NP Accompanied by: Mother CC: Headache HPI: Susan Bro is a 25 year old year old, woman who is here for the evaluation and management of the patient's Headache. She has significant medical history including: nausea vomiting Headache 1 This is the current headache. Onset: - Teenager, progressively worsened. Denies precipitating factors. Severity: 10/10 Location: can be all over. Quality/Description: throbbing [...] bed and continue this dose - rizatriptan (MAXALT-CRIME SCENE EXAMINER) 10 mg disintegrating tablet Take 1 tablet [...] Transformed Score (ran (more content not included)... [facility]06-10-2021 NoteHNO ID: [id number] Author: Karen Vinson RT(R) Service: Nuclear Medicine Author Type: Parks Worker Type: Progress Notes Filed: 03/24/2021 9:39 AM [...] 0740 PATIENT DISCHARGED TO: Ambulatory patient, left OR department area. A Diagnostic radioactive procedure has taken place, with no further precautions necessary other than routine body substance precautions. More information regarding radiation safety can be found using this link: [email or web address]%[email or web address] SIGNATURE: RT Oliva(R) PATIENT NAME: Susan Bro DATE: March 24, 2021 TIME: 9:38 AM PAGER/CONTACT #:[facility]05-27-2021 NoteHNO ID: [id number] Author: Martha Webb MD Service: ? Author Type: Physician Type: Progress Notes Filed: 03/10/2021 12:03 PM Note Text: This note was created using Sandvineriter. Subjective Susan Bro is a 25 year [...] FHx migraine headaches No history of migraine FARIAS treatment No history of imitrex treatment No [...] biliary ductal dilatation is (more content not included)...[facility] course Narrative No data available for this section [facility] Discharge instructions No data available for this section [facility] No data available for this section [facility] Summary Purpose Family History No Family History Records FoundNo Family History Records FoundNo Family History Records FoundNo Family History Records FoundNo Family History Records FoundNo Family History Records Found No data available for this section No data available for this section No data available for this section No Family History Records Found No data available for this section No Family History Records Found Advance Directives No Advanced Directives Records FoundDocuments on File Type Date Recorded Patient Carding Machine Feeder Expl anation Advance Directives and Reggie kelly Will 10/14/2020 10:22 AM Documents on File Type Date Recorded Patient Carding Machine Feeder Expl anation ACP-Advance Directive ACP-Power of Carding Machine Feeder Discharge Instructions * Discharge Instr - Care Coordination* Andra Schmid RN - 10/14/2020 11:43 AM [facility] Trust the experts at [facility] to meet your healthcare needs. When you make an appointment with [facility], it's the start of a long-lasting partnership that's committed to your health. We provide the very best prevention, wellness and illness care, and give you access to the advanced medical services and expert treatment available at [facility]. Please note that the provider listed below is accepting patients in your area. Brickeys: [address] [phone] MD Debby Lala MD Christina Spring, CNP For the most up-to-date information on a care provider in your community, use the Find a Doctor tool on GitHub [facility] * Attachments The following attachments cannot be sent through Care Everywhere. * Vertigo (Israeli) * Arik Maneuver: Vertigo: Exercises (Israeli) documented in this encounter* Instructions* Bakari Valente [...] be sent through Care Everywhere. * Bruises (Israeli) * Contusion (Israeli) documented in this encounter Assessments Diagnosis Vertigo- Primary Dizziness and giddiness Diagnosis Contusion of right knee, initial encounter Contusion of multiple sites of right shoulder and upper arm, initial encounter Additional Source Comments INFORMATION SOURCE (unrecogn ized section and content) DATE CREATED AUTHOR 04/09/2018 [facility] DATE CREATED AUTHOR AUTHOR'S ORGANIZ ATION 08/10/2020 [facility] DATE CREATED AUTHOR AUTHOR'S ORGANIZ ATION 09/07/2020 [facility] DATE CREATED AUTHOR AUTHOR'S ORGANIZ ATION 10/20/2020 [facility] DATE CREATED AUTHOR AUTHOR'S ORGANIZ ATION 03/18/[address] 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 denies hitting head or any LOC Shoulder Pain rt shoulder, fell ov er dust guzman onto her right side. Susan Griffiths PA-C - 10/14/2020 10:44 AM Amena Cantrell RN - 10/14/2020 10:32 AM EST ED Notes (unrecognized secti on and content) [facility] ED Note: NAME: Susan Bro 24 y.o. CSN: [id number] PCP: Physician No History: Chief Complaint: Dizziness [...] file Gets together: Not on file Attends advent service: Not on file Active member of [...] does have reproducible vertigo with position changes. Fnzusk-uu-oudq maneuvers are intact without dysmetria. There is negative Romberg sign. There was no ataxia on ambulation. Psychiatric: Mood and Affect: Mood normal. Behavior: Behavior normal. Thought Content: Thought content normal. Laboratory & Radiological Imaging (if done): Labs Reviewed URINALYSIS - Abnormal; Notable for the following components: Result Value Clarity, Urine Cloudy (*) Specific [place] 1.028 (*) pH, Urine 8.0 (*) Protein, [...] at the following links: For Healthcare Providers: https://www.fda.gov/media/076361/download For Patients: https://www.fda.gov/media/453737/download HCG URINE, QUALITATIVE - Normal CBC AND DIFFERENTIAL Narrative: The following orders were created for panel order CBC w/ Diff. Procedure Abnormality Status --------- ------ CBC Auto Differential[[id number]] Abnormal Final result Please view results for these tests on the individual orders. HCG URINE, QUALITATIVE URINALYSIS CT Head Or Brain Without Contrast Final Result 1. No acute intracranial hemorrhage, focal edema or mass effect. Workstation ID: [id number] EKG: Normal sinus rhythm with sinus arrhythmia RATE: 74 AXIS: Normal axis INTERVALS: NM interval of 178 ms, QRS duration of [...] Antivert. She is referred to follow-up with [facility] or [facility] that she does not currently have a [...] needed for dizziness . Susan Griffiths Physicians Senior Web Applications Developer [facility] Emergency Department Susan Griffiths PA-C 10/14/20 1203 Special isolation precautions are in place with signage outside this patient's room. This memory care director performs hand hygiene and enters the patient [...] this informatio n is protected by the Federal Confidentiality of Alcohol and Drug Abuse Patient Records regulations: The Federal rules restrict any use of the information to criminally investigate or prosecute any alcohol or drug abuse patient.[facility] Care Team (unrecognized sect ion and content) Personnel Name: THANG MILLAN CNP Address: [address] [place] [address] Personnel Name: THANG MILLAN CNP Address: [address] [place] [address] Personnel Name: THANG MILLAN CNP Address: [address] [place] [address] Personnel Name: THANG MILLAN CNP Address: [address] [place], [place] [id number] Personnel Name: THANG MILLAN CNP Address: [address] [place], [place] [address] Personnel Name: THANG MILLAN CNP Address: [address] [place] [address] Personnel Name: THANG MLILAN CNP Address: [address] [place] [address] Personnel Name: THANG MILLAN CNP Address: [address] [place] [address] Personnel Name: THANG MILLAN CNP Address: Address: [address] [place] [address] Personnel Name: THANG MILLAN CNP Address: Address: [address] [place] [address]- [place] Personnel Name: THANG MILLAN CNP Address: Address: [address] [place] [address]- [place] Personnel Name: THANG MILLAN CNP Address: Address: [address] [place] [address]- [place] Personnel Name: THANG MILLAN CNP Address: Address: [address] [place] [address]- [place] Personnel Name: THANG MILLAN CNP Address: Address: [address] [place] [address]- [place] Personnel Name: THANG MILLAN CNP Address: Address: [address] [place] [address]- [place] Personnel Name: THANG MILLAN CNP Address: Address: [address] [place] [address]- [place] Personnel Name: THANG MILLAN CNP Address: Address: [address] [place] [address]- [place] Personnel Name: THANG MILLAN CNP Address: Address: [address] [place] [address]- [place] Personnel Name: THANG MILLAN CNP Address: Address: [address] [place] [address]- [place] Personnel Name: THANG MILLAN CNP Address: Address: [address] [place] [address]- [place] Personnel Name: THANG MILLAN CNP Address: Address: [address] [place] [address]- [place] Personnel Name: THANG MILLAN CNP Address: Address: [address] [place] [address]- [place] Personnel Name: THANG MILLAN CNP Address: Address: [address] [place] [address]- [place] Personnel Name: THANG MILLAN CNP Address: Address: [address] [place] [address]- [place] Personnel Name: THANG MILLAN CNP Address: Address: [address] [place] [address]- [place] Personnel Name: THANG MILLAN CNP Address: Address: [address] [place] [address]- [place] Personnel Name: Luis Carlos Jung MD Address: Address: [address] [place] [address], [address] [address]- [place] Personnel Name: Luis Carlos Jung MD Address: Address: [address] [place], [place] [address], [address] [address]- [place] Personnel Name: Luis Carlos Jung MD Address: Address: [facility] [place], [facility] [address] Personnel Name: Luis Carlos Jung MD Address: Address: [facility] [place], [facility] [address] Personnel Name: Luis Carlos Jung MD Address: Address: [facility] [place], [facility] [address] Personnel Name: Rashaun PURVIS DO Address: Address: [address] , [facility] Personnel Name: NONE, XXXX Address: Address: [facility] Personnel Name: LLC, GENERIC Personnel Name: LLC, [...] BE BASED ON THE PRIMARY CLINICAL RECORDS. [facility] [place] [facility]. provides no warranty or guarantee of the accuracy or completeness of information in this document.
[2023-10-30 08:27] VITALS: BP 120/64; PULSE 82
== END 2023-10-30 08:53 | disposition home or self-care (01) ==
LOC: US 07:04 → FBC 07:59
PROVIDERS: Visit Provider Obstetrics & Gynecology
DX: O36.63X0 Maternal care for excessive fetal growth, third trimester, not applicable or unspecified (principal); Z3A.32 32 weeks gestation of pregnancy
CPT/HCPCS: 36415; 76818; 84443

== ENCOUNTER 2023-10-30 07:42 | Outpatient (OUT) | payer OTHER, SELFPAY ==
--- OUTSIDE RECORDS SUMMARY | 2023-10-30 07:49 | XMS_ITS | CCD ---
Author Name Unknown Address [address] [place] [address] Organization [facility] Care Team Providers Care Biazzi Nitrator Operator Name Role Phone MELISSANKECHI Unavailable Unavaila BAKARI Liriano Attending Unavailable THANG MILLAN Primary Care Unavailable No, Physician Primary Care Provider Unavailerum e NO, PHYSICIAN Primary Care Unavailable REGINE CHOW Admitting Unavailable REGINE CHOW Attending Unavailable Thang Millan Primary Care Provider [phone] Unavailable Primary Care Provider UnavailTHANG Mauro Primary Care Physician [phone] Luis Carlos Jung Primary Care Physician [phone] Rashaun PURVIS Primary Care Physician NONE, XXXX [...] sources) amoxicillin; Translations: [AMOXICILLIN] [facility] (20 sources) penicillin; Translations: [PENICILLIN] Drug All[facility] (3 sources) Penicillins; Translations: [PENICILLINS] Propensity to adverse reactions to drug 0 [place], [place] Medications Current Medications Medication Drug Class(es) [...] day(s), # 15 cap(s), Refills(s) 0, Pharmacy: [facility] 1986, 162.6, cm, 05/21/23 20:50:00 EDT, Height/Length Dosing, 75.3, kg, 05/21/23 20:50:00 EDT, Weight Dosing Start Date: 05/21/23 Stop Date: 05/26/23 Status: Ordered Start: 08-18-2022 End: 08-25-2022 take 1 capsule by mouth four times daily Keflex 500 mg Cap 500 mg = 1 cap(s), Oral, QID, X 7 day(s), # 28 cap(s), Refills(s) 0, Pharmacy: [facility] 1986, 162.5, cm, 08/18/22 4:15:00 EDT, Height/Length Dosing, 80, kg, 08/18/22 4:15:00 EDT, Weight Dosing Start Date: 08/18/22 Stop Date: 08/25/22 Status: Ordered Start: 07-17-2022 End: 07-22-2022 take 1 capsule by mouth every twelve hours Keflex 500 mg Cap 500 mg = 1 cap(s), Oral, q12hr, X 5 day(s), # 10 cap(s), Refills(s) 0, Pharmacy: [facility] 1986, 162.5, cm, 07/17/22 9:09:00 EDT, Height/Length Dosing, 80, kg, 07/17/22 9:09:00 EDT, Weight Dosing Start Date: 07/17/22 Stop Date: 07/22/22 Status: Ordered Start: 04-02-2022 End: 04-09-2022 take 1 capsule by mouth four times daily Keflex 500 mg Cap 500 mg = 1 cap(s), Oral, QID, X 7 day(s), # 28 cap(s), Refills(s) 0, Pharmacy: [facility] 1985, 160, cm, 04/02/22 6:28:00 [...] Daily, # 14 tab(s), Refills(s) 0, Pharmacy: [facility] 1986, 162.6, cm, 05/21/23 20:50:00 EDT, Height/Length Dosing, 75.3, kg, 05/21/23 20:50:00 EDT, Weight Dosing Start Date: 05/21/23 Status: Ordered ibuprofen 600 mg oral tablet (11 sources) Nonsteroidal Anti-inflammatory Drug Start: 09-27-2022 take 1 tablet by mouth every six hours ibuprofen 600 mg Tab 600 mg = 1 tab(s), Oral, q6hr, # 15 tab(s), Refills(s) 0, Pharmacy: [facility] 1985, 162.5, cm, 09/24/22 21:51:00 [...] dizziness, # 15 tab(s), Refills(s) 0, Pharmacy: [facility], 163, cm, 11/30/21 7:18:00 EST, [...] Nausea/Vomiting, # 12 tab(s), Refills(s) 0, Pharmacy: [facility] 1986, 163, cm, 09/05/22 20:14:00 [...] day(s), # 6 tab(s), Refills(s) 0, Pharmacy: [facility], 163, cm, 06/28/23 10:39:00 [...] q8hr, # 12 tab(s), Refills(s) 0, Pharmacy: [facility] 1985, 162.6, cm, 05/21/23 20:50:00 [...] [Mass/Vol] 146 ng/dL Invalid Interpretation Code 71-180 [facility] Comment on above: Result Comment: Perf ormed at: [facility] [address] [id number] PhD Caroline [place] Performed By: #### 2 732082, 45082394, 4791461, 00417276, 1166066, 6653024, 66284420 ####[facility] [address] [place] [address] Auto Diffon 08-23-2023 Basophils/100 WBC (Bld) 0.9 % Normal 0.0-2.0 [facility] Comment on above: Order Comment: Order Added by Discern Expert. Performed By: #### 2 494862, 51126951, 8625282, 45900505, 7287328, 0863431, 23570999 ####[facility] [address] [place] [address] Basophils/Leukocytes Auto (Bld) [Pure # fraction] 0.1 E9/L Normal 0.0-0.2 [facility] Comment on above: Order Comment: Order Added by Discern Expert. Performed By: #### 2 791407, 44684576, 3666256, 92224026, 4197384, 6036555, 05360164 ####[place] [address] [address] Eosinophils/100 WBC (Bld) 1.3 % Normal 0.0-8.0 [facility] Comment on above: Order Comment: Order Added by Discern Expert. Performed By: #### 2 708923, 92711699, 2919109, 03064932, 6140547, 4347167, 29878971 ####[address] [address] Eosinophils/Leukocytes Auto (Bld) [Pure # fraction] 0.1 E9/L Normal 0.0-0.5 [facility] Comment on above: Order Comment: Order Added by Discern Expert. Performed By: #### 2 032055, 40820930, 2288643, 61058629, 2892632, 2484120, 37370041 ####[address] [address] Lymphocytes/100 WBC (Bld) 17.7 % Normal 14.0-50.0 [facility] Comment on above: Order Comment: Order Added by Discern Expert. Performed By: #### 2 419044, 24494624, 1785637, 36993052, 3235100, 6841325, 75715419 ####[address] [address] Lymphocytes/Leukocytes Auto (Bld) [Pure # fraction] 1.4 E9/L Normal 1.0-4.0 [facility] Comment on above: Order Comment: Order Added by Discern Expert. Performed By: #### 2 467942, 00594037, 5913476, 61632934, 9334626, 9425041, 21672751 ####[address] [address] Monocytes/100 WBC (Bld) 5.1 % Normal 4.0-14.0 [facility] Comment on above: Order Comment: Order Added by Gisselle Expert. Performed By: #### 2 553428, 02273748, 8745437, 59997582, 0707205, 4041605, 21654376 ####[address] [place] [address] Monocytes/Leukocytes Auto (Bld) [Pure # fraction] 0.4 E9/L Normal 0.2-1.0 [facility] Comment on above: Order Comment: Order Added by Discern Expert. Performed By: #### 2 025516, 76548329, 2836920, 07467854, 8155193, 6465036, 10641928 ####[address] [place] [address] Neutrophils/100 WBC (Bld) 75.0 % Normal 36.0-75.0 [facility] Comment on above: Order Comment: Order Added by Discern Expert. Performed By: #### 2 802053, 66517011, 3147359, 18853946, 6427882, 7811690, 47073555 ####[address] [place] [address] Neutrophils/Leukocytes Auto (Bld) [Pure # fraction] 5.8 E9/L Normal 2.0-7.5 [facility] Comment on above: Order Comment: Order Added by Discern Expert. Performed By: #### 2 727032, 04583370, 2940798, 68931314, 9187495, 1011201, 23078443 ####[address] [place] [address] CBC w/ Auto Diffon 3 Erythrocyte distribution width (RBC) [Ratio] 14.5 % High 10.9-14.2 [facility] Comment on above: Performed By: #### 2 052382, 83108662, 8214481, 99365672, 6183426, 3184793, 03493825 ####[address] [place] [address] Hematocrit (Bld) [Volume fraction] 36.4 % Normal 34.0-46.0 [facility] Comment on above: Performed By: #### 2 018627, 70470265, 0771477, 19434765, 7598228, 0682953, 27017349 ####[address] [place] [address] Hemoglobin (Bld) [Mass/Vol] 12.1 g/dL Normal 12.0-16.0 [facility] Comment on above: Performed By: #### 2 097014, 45063006, 8462638, 96830556, 5169085, 4233239, 16231253 ####[facility] [address] [place] [address] MCH (RBC) [Entitic mass] 30.2 pg Normal 27.0-34.0 [facility] Comment on above: Performed By: #### 2 254455, 90842918, 4951318, 86945348, 5267786, 5647616, 43594713 ####[address] [address] MCHC (RBC) [Mass/Vol] 33.3 g/dL Normal 31.4-36.0 [facility] Comment on above: Performed By: #### 2 622617, 87183866, 1865442, 41386328, 0536249, 1500807, 71774046 ####[address] [place] [address] MCV (RBC) [Entitic vol] 90.8 fL Normal 80.0-100.0 [facility] Comment on above: Performed By: #### 2 950903, 97570433, 7548178, 39796656, 8567735, 0244422, 98581058 ####[address] [address] Platelet mean volume (Bld) [Entitic vol] 9.7 fL Normal 6.4-10.8 [facility] Comment on above: Performed By: #### 2 711588, 96438944, 1570268, 41366266, 5233985, 0635006, 31272942 ####[address] [address] Platelets (Bld) [#/Vol] 270.0 E9/L Normal 150.0-500.0 [facility] Comment on above: Performed By: #### 2 771162, 42894420, 4582974, 95867572, 7419154, 5799530, 39030492 ####[facility] [address] [place] [address] RBC (Bld) [#/Vol] 4.0 E12/L Low 4.3-5.9 [facility] Comment on above: Performed By: #### 2 706685, 58046920, 7301477, 06724248, 8948286, 6200312, 97836664 ####[facility] [address] [place] [address] WBC corrected for nucl RBC Auto (Bld) [#/Vol] 7.7 E9/L Normal 4.0-11.0 [facility] Comment on above: Performed By: #### 2 652698, 38852878, 7611602, 92773420, 7377737, 4818486, 69022250 ####[facility] [address] [place] [address] CHEMISTRYOrdered By: SYSTEM SYSTEM on 08-23-2023 Albumin [...] 125 mL/min/1.73 m2 Normal >=59mL/min/ 1.73 m2 [facility] Chem S Comment on above: Interpretive Data: [...] 7 mg/dL Normal 5 - 21 mg/dL [facility] Remisol Urea nitrogen/Creatinine [Mass ratio] 12 mg/mg Normal 10 - 20 FT Remisol CMPon 08-23-2023 Albumin [Mass/Vol] 2.8 g/dL Low 3.3-5.0 [facility] Comment on above: Performed By: #### 2 412200, 21495247, 6835247, 14793875, 2606788, 6359408, 32014029 ####[facility] [address] [place] [address] Albumin/Globulin (S) [Mass conc ratio] 0.7 Low 1.1-2.2 [facility] Comment on above: Performed By: #### 2 787234, 60855922, 6526252, 10916079, 3840365, 2257283, 84496809 ####[facility] [address] [place] [address] ALP [Catalytic activity/Vol] 49 Int._Unit/L Normal 21-98 [facility] Comment on above: Performed By: #### 2 466414, 58339930, 1113549, 19940632, 2225084, 6820023, 25691329 ####[facility] [address] [place] [address] ALT No additional P-5'-P [Catalytic activity/Vol] 15 Int._Unit/L Normal 6-46 [facility] Comment on above: Performed By: #### 2 547973, 90974885, 4566310, 54288916, 0270902, 1025684, 59783737 ####[facility] [address] [place] [address] Anion gap [Moles/Vol] 12 mmol/L Normal 6-16 [facility] Comment on above: Performed By: #### 2 562126, 60724344, 3136314, 76742658, 3459147, 9368963, 38877880 ####[facility] [address] [place] [address] AST [Catalytic activity/Vol] 17 Int._Unit/L Normal 5-43 [facility] Comment on above: Performed By: #### 2 975990, 73752684, 5215379, 59859549, 6268395, 7098149, 55611793 ####[facility] [address] [place] [address] Bilirubin [Mass/Vol] 0.5 mg/dL Normal 0.0-1.1 [facility] Comment on above: Performed By: #### 2 831316, 73978988, 3400376, 53023797, 8519715, 3136965, 35635801 ####[facility] [address] [place] [address] Calcium [Mass/Vol] 8.8 mg/dL Low 8.9-11.1 [facility] Comment on above: Performed By: #### 2 280533, 63470786, 5351203, 75850376, 5575725, 6177805, 98123836 ####[facility] [address] [place] [address] Chloride [Moles/Vol] 108 mmol/L Normal 101-111 [facility] Comment on above: Performed By: #### 2 600934, 88633225, 2032150, 92367023, 2059620, 9468861, 78012000 ####[facility] [address] [place] [address] CO2 [Moles/Vol] 22 mmol/L Normal 21-31 [facility] Comment on above: Performed By: #### 2 457535, 06989387, 2962744, 19104876, 9554770, 4951550, 90337236 ####[facility] [address] [place] [address] Creatinine [Mass/Vol] 0.6 mg/dL Normal 0.5-1.3 [facility] Comment on above: Performed By: #### 2 438564, 86469136, 9619209, 62184980, 7212330, 7641226, 35725304 ####[facility] [address] [place] [address] Globulin (S) [Mass/Vol] 3.8 g/dL Normal 1.4-4.0 [facility] Comment on above: Performed By: #### 2 366953, 47364501, 2515942, 75480255, 0170181, 1855487, 82789985 ####[facility] [address] [place] [address] Glucose [Mass/Vol] 88 mg/dL Normal 55-199 [facility] Comment on above: Result Comment: If t his glucose result represents a fasting glucose, interpretation should refer to the following reference range: 55-99 mg/dL Performed By: #### 2 919429, 73229125, 7678657, 99968108, 6519792, 7803523, 20521512 ####[facility] [address] [place] [address] Potassium [Moles/Vol] 3.5 mmol/L Normal 3.5-5.3 [facility] Comment on above: Performed By: #### 2 594566, 85522057, 1258801, 07037475, 0304865, 4932820, 25943166 ####[facility] [address] [place] [address] Protein [Mass/Vol] 6.6 g/dL Normal 6.0-7.8 [facility] Comment on above: Performed By: #### 2 089461, 08882195, 5230311, 68049024, 2692417, 5150396, 78788023 ####[facility] [address] [place] [address] Sodium [Moles/Vol] 138 mmol/L Normal 135-145 [facility] Comment on above: Performed By: #### 2 632316, 67752178, 4295235, 63839324, 0245364, 1870953, 12397024 ####[facility] [address] [place] [address] Urea nitrogen [Mass/Vol] 7 mg/dL Normal 5-21 [facility] Comment on above: Performed By: #### 2 518947, 61292000, 5954515, 36936822, 7747227, 2493477, 18493597 ####[facility] [address] [place] [address] Urea nitrogen/Creatinine [Mass ratio] 12 No Units Normal 10-20 [facility] Comment on above: Performed By: #### 2 865048, 46848715, 8259474, 72021207, 5120596, 4308517, 58311371 ####[facility] [address] [place] [address] HEMATOLOGYOrdered By: SYSTEM SYSTEM on 08-23-2023 Basophils/100 [...] 08-23-2023 Cholesterol [Mass/Vol] 238 mg/dL High 120-200 [facility] Comment on above: Performed By: #### 2 230107, 59208271, 4694769, 66509741, 1022332, 3755954, 22915448 ####[facility] [address] [place] [address] Cholesterol in HDL [Mass/Vol] 64 mg/dL Invalid Interpretation Code [facility] Comment on above: Result Comment: HDL > or equal to 60 mg/dL: Low cardiovascular riskHDL < 40 mg/dL : High cardiovascular risk Performed By: #### 2 407175, 92774324, 1259187, 38276082, 5876805, 5395176, 45953572 ####[facility] [address] [place] [address] Cholesterol in LDL [Mass/Vol] 146 mg/dL High <=129 [facility] Comment on above: Performed By: #### 2 572535, 57178448, 9500973, 08490870, 4275204, 9988159, 00241810 ####[facility] [address] [place] [address] Cholesterol in VLDL [Mass/Vol] 33 mg/dL Normal 7-40 [facility] Comment on above: Performed By: #### 2 882625, 08576658, 7543286, 63701708, 7266590, 1625055, 72936412 ####[facility] [address] [place] [address] Triglyceride [Mass/Vol] 164 mg/dL High <=149 [facility] Comment on above: Performed By: #### 2 352445, 69831307, 6921878, 94943302, 3863114, 8277769, 47512077 ####[facility] [address] [place] [address] Physician Orderon 08-23-2023 Physician Order [id number]#1.00TIFF Normal [facility] T4 & TSHon 08-23-2023 T4 [Mass/Vol] 11.8 microgram/dL High 4.6-9.1 [facility] Comment on above: Performed By: #### 2 368565, 31271107, 3242804, 22455320, 0874404, 7731013, 97429554 ####[facility] [address] [place] [address] TSH Qn 3.61 m[IU]/L Normal 0.34-5.60 [facility] Comment on above: Performed By: #### 2 961809, 49785723, 2217340, 16926876, 8057632, 8328787, 13903045 ####[facility] [address] [place] [address] eGFRon 08-23-2023 GFR/1.73 sq M.predicted among non-blacks MDRD (S/P/Bld) [Vol rate/Area] 125 mL/min/1.73 m2 Normal >=59 [facility] Comment on above: Order Comment: Order added by Discern Expert. Result Comment: Avionics Installer lucy kidney disease could be indicated at eGFR's of less than 60 mL/min/1.73m2. Kidney failure is indicated at less than 15 mL/min/1.73m2. Performed By: #### 2 073389, 64593612, 5994731, 53975114, 7475654, 8082011, 70589764 ####[facility] [address] [place] [address] Nursing Assessmenton 023 Nursing Assessment [id number]#1.00TIFF [facility] Consent for Treatmenton Consent for Treatment [id number]#1.00TIFF [facility] Discharge Instructionson Discharge Instructions [id number]#1.00TIFF Normal [facility] Inpatient Clinical Summaryon 08-18-2023 Inpatient Clinical Summary Normal [facility] Inpatient Patient Summaryon 08-18-2023 Inpatient Patient Summary Normal [facility] Insurance Correspondenceon 10-18-2022 Insurance Correspondence [id number]#1.00TIFF [facility] Vaccinationson 08-18-2023 Vaccinations [id number]#1.00TIFF [facility] C Urineon 07-27-2023 Bacteria identified Cx Nom (U) Normal [facility] Comment on above: Performed By: #### 2 256223, 54495823 ####[address] [address] ABO/Rhon 07-25-2023 ABO/Rh Positive Invalid Interpretation Code [facility] Comment on above: Performed By: #### 2 009641 ####[address] [address] Auto Diffon 07-25-2023 Basophils/100 WBC (Bld) 1.1 % Normal 0.0-2.0 [facility] Comment on above: Order Comment: Order Added by Discern Expert. Performed By: #### 1 9144978, 6172158, 5630102, 0006928, 7127874, 6340063 ####[address] [address] Basophils/Leukocytes Auto (Bld) [Pure # fraction] 0.1 E9/L Normal 0.0-0.2 [facility] Comment on above: Order Comment: Order Added by Discern Expert. Performed By: #### 1 9723441, 0560430, 2258030, 3132718, 1206882, 2704972 ####[address] [address] Eosinophils/100 WBC (Bld) 1.2 % Normal 0.0-8.0 [facility] Comment on above: Order Comment: Order Added by Discern Expert. Performed By: #### 1 8361483, 1942994, 1042687, 4047010, 7191105, 4960267 ####[address] [address] Eosinophils/Leukocytes Auto (Bld) [Pure # fraction] 0.1 E9/L Normal 0.0-0.5 [facility] Comment on above: Order Comment: Order Added by Discern Expert. Performed By: #### 1 6482290, 9471530, 4731260, 6438348, 3957145, 5474670 ####[address] [address] Lymphocytes/100 WBC (Bld) 23.7 % Normal 14.0-50.0 [facility] Comment on above: Order Comment: Order Added by Discern Expert. Performed By: #### 1 8706697, 2603705, 5735892, 0944423, 3972538, 1907556 ####[address] [place] [address] Lymphocytes/Leukocytes Auto (Bld) [Pure # fraction] 1.4 E9/L Normal 1.0-4.0 [facility] Comment on above: Order Comment: Order Added by Discern Expert. Performed By: #### 1 5465961, 3254599, 3517011, 5220382, 1633836, 2670822 ####[address] [place] [address] Monocytes/100 WBC (Bld) 6.7 % Normal 4.0-14.0 [facility] Comment on above: Order Comment: Order Added by Gisselle Expert. Performed By: #### 1 6465228, 1854927, 8769276, 7310251, 6466831, 9947222 ####[address] [address] Monocytes/Leukocytes Auto (Bld) [Pure # fraction] 0.4 E9/L Normal 0.2-1.0 [facility] Comment on above: Order Comment: Order Added by Gisselle Expert. Performed By: #### 1 7381459, 2106711, 0018892, 8314709, 1998451, 3296625 ####[address] [address] Neutrophils/100 WBC (Bld) 67.3 % Normal 36.0-75.0 [facility] Comment on above: Order Comment: Order Added by Gisselle Expert. Performed By: #### 1 9644601, 1893403, 2798377, 1757538, 1714915, 5653933 ####[address] [place] [address] Neutrophils/Leukocytes Auto (Bld) [Pure # fraction] 4.0 E9/L Normal 2.0-7.5 [facility] Comment on above: Order Comment: Order Added by Discern Expert. Performed By: #### 1 4367099, 3460749, 2012533, 7966323, 3285013, 0039993 ####[facility] [address] [place] [address] BLOOD BANKOrdered By: An Lassiter on 07-25-2023 ABO/Rh Interp Positive Invalid Interpretation Code [facility] BB Subsection BMPon 07-25-2023 Creatinine [Mass/Vol] 0.6 mg/dL Normal 0.5-1.3 [facility] Comment on above: Performed By: #### 1 6965412, 6939406, 9847530, 9286146, 0266422, 0228631 ####[facility] [address] [place] [address] Urea nitrogen [Mass/Vol] 6 mg/dL Normal 5-21 [facility] Comment on above: Performed By: #### 1 8421989, 5616642, 1491263, 4538135, 9824563, 5741724 ####[facility] [address] [place] [address] Urea nitrogen/Creatinine [Mass ratio] 10 No Units Normal 10-20 [facility] Comment on above: Performed By: #### 1 8926528, 8346120, 5054427, 9283234, 3924434, 4940324 ####[facility] [address] [place] [address] Anion gap [Moles/Vol] 2 mmol/L Low 6-16 [facility] Comment on above: Performed By: #### 1 0483273, 7286992, 2223164, 1669351, 6918441, 6728818 ####[facility] [address] [place] [address] Calcium [Mass/Vol] 8.6 mg/dL Low 8.9-11.1 [facility] Comment on above: Performed By: #### 1 7384200, 2510280, 3507047, 9245892, 3641345, 3663587 ####[facility] [address] [place] [address] Chloride [Moles/Vol] 107 mmol/L Normal 101-111 [facility] Comment on above: Performed By: #### 1 2724977, 8824505, 1307505, 6259981, 8335517, 7717339 ####[facility] [address] [place] [address] CO2 [Moles/Vol] 27 mmol/L Normal 21-31 [facility] Comment on above: Performed By: #### 1 3847511, 1321479, 1936754, 5620969, 4296422, 9964825 ####[facility] [address] [place] [address] Glucose [Mass/Vol] 73 mg/dL Normal 55-199 [facility] Comment on above: Result Comment: If t his glucose result represents a fasting glucose, interpretation should refer to the following reference range: 55-99 mg/dL Performed By: #### 1 8682940, 1984881, 0557173, 3625270, 2283465, 7928431 ####[facility] [address] [place] [address] Potassium [Moles/Vol] 3.9 mmol/L Normal 3.5-5.3 [facility] Comment on above: Performed By: #### 1 8145875, 7693314, 2680906, 2707979, 1578460, 6030708 ####[facility] [address] [place] [address] Sodium [Moles/Vol] 132 mmol/L Low 135-145 [facility] Comment on above: Performed By: #### 1 5716243, 8390281, 0748533, 1336357, 9964829, 3105886 ####[facility] [address] [place] [address] BhCG Quanton 07-25-2023 [place] [address] m[IU]/mL High 1-3 [facility] Comment on above: Result Comment: GEST ATIONAL AGE HCG RANGE (mIU/mL) NON- <1-3 0.2-1 WEEKS 5-50 1-2 WEEKS 50-500 2-3 WEEKS 100-5,000 3-4 WEEKS 500-10,000 4-5 WEEKS 1,000-50,000 5-6 WEEKS 10,000-100,000 6-8 WEEKS 15,000-200,000 8-12 WEEKS 10,000-100,000 Performed By: #### 2 463416 ####[facility] [address] [place] [address] CBC w/ Auto Diffon 3 Erythrocyte distribution width (RBC) [Ratio] 14.0 % Normal 10.9-14.2 [facility] Comment on above: Performed By: #### 1 8342752, 4092724, 5761052, 8626929, 1526576, 7702416 ####[address] [place] [address] Hematocrit (Bld) [Volume fraction] 37.1 % Normal 34.0-46.0 [facility] Comment on above: Performed By: #### 1 8416706, 4954177, 0847039, 1593916, 5631135, 0203214 ####[address] [place] [address] Hemoglobin (Bld) [Mass/Vol] 12.5 g/dL Normal 12.0-16.0 [facility] Comment on above: Performed By: #### 1 6626213, 9009352, 3497909, 7197118, 0158415, 5193327 ####[address] [address] MCH (RBC) [Entitic mass] 29.9 pg Normal 27.0-34.0 [facility] Comment on above: Performed By: #### 1 8719504, 7093755, 9503706, 6274463, 3442479, 2476215 ####[address] [place] [address] MCHC (RBC) [Mass/Vol] 33.8 g/dL Normal 31.4-36.0 [facility] Comment on above: Performed By: #### 1 3665057, 3214824, 5160430, 2954290, 8893577, 2717691 ####[facility] [address] [place] [address] MCV (RBC) [Entitic vol] 88.4 fL Normal 80.0-100.0 [facility] Comment on above: Performed By: #### 1 [id number], [id number], [id number], [id number], [id number], [id number] ####[address] [place] [address] Platelet mean volume (Bld) [Entitic vol] 7.9 fL Normal 6.4-10.8 [facility] Comment on above: Performed By: #### 1 [id number], [id number], 5477944, [id number], [id number], [id number] ####[address] [address] Platelets (Bld) [#/Vol] 261.0 E9/L Normal 150.0-500.0 [facility] Comment on above: Performed By: #### 1 2377915, 6063517, 0675000, 6480043, 2204065, 1532105 ####[address] [address] RBC (Bld) [#/Vol] 4.2 E12/L Low 4.3-5.9 [facility] Comment on above: Performed By: #### 1 2875655, 9604935, 1054540, 1549633, 0417341, 5544421 ####[address] [address] WBC corrected for nucl RBC Auto (Bld) [#/Vol] 5.9 E9/L Normal 4.0-11.0 [facility] Comment on above: Performed By: #### 1 1846509, 3798340, 2287080, 3375485, 1660012, 9028968 ####[address] [place] [address] CHEMISTRYOrdered By: SYSTEM SYSTEM on 07-25-2023 Albumin [...] 125 mL/min/1.73 m2 Normal >=59mL/min/ 1.73 m2 [facility] Chem S Comment on above: Interpretive Data: [...] reference range: 55-99 mg/[place] [address] m[IU]/mL High 1 - 3 mIU/mL FT [...] 6 mg/dL Normal 5 - 21 mg/dL [facility] Remisol Urea nitrogen/Creatinine [Mass ratio] 10 mg/mg Normal 10 - 20 FT Remisol Consent for Treatmenton 07-15 Consent for Treatment [id number] Normal [facility] Discharge Instructionson Discharge Instructions [id number] Normal [facility] ED Clinical Summaryon 2022 [address] [facility] ED Note-Physicianon 07-25-20 ED Note-Physician Normal [facility] Comment on above: Result Comment: Elec tronically Signed By: Jorge Velarde PA-C\.br\Date and Time Signed: 07/25/23 10:02 EDT\.br\Electronically Co-Signed By: Kristian Guillermo DO\Date and Time Co-Signed: 07/25/23 20:25 EDT ED Patient Education Noteon 07-25-2023 ED Patient Education Note Normal [facility] ED Patient Summaryon 023 ED Patient Summary Normal [facility] HEMATOLOGYOrdered By: SYSTEM SYSTEM on 07-25-2023 [...] Bilirubin.indirect [Mass or moles/Vol] UTC Abnormal 0.1-0.9 [facility] Comment on above: Result Comment: Resu lt verified by Discern Rule. Performed result UTC (Unable to Calculate) was sent as an Alpha code due the inability to calculate a valid numeric value. Performed By: #### 1 7530388, 4478093, 5259975, 5226264, 6468288, 5541219 ####[facility] [address] [place] [address] Albumin [Mass/Vol] 3.1 g/dL Low 3.3-5.0 [facility] Comment on above: Performed By: #### 1 3357430, 4098455, 6425800, 2550421, 7468310, 8886324 ####[facility] [address] [place] [address] Albumin/Globulin (S) [Mass conc ratio] 0.9 Low 1.1-2.2 [facility] Comment on above: Performed By: #### 1 0321369, 8538279, 2981291, 9370073, 4873288, 6339064 ####[facility] [address] [place] [address] ALP [Catalytic activity/Vol] 35 Int._Unit/L Normal 21-98 [facility] Comment on above: Performed By: #### 1 5990527, 4173045, 6742943, 7932907, 9270219, 9551818 ####[address] [place] [address] ALT No additional P-5'-P [Catalytic activity/Vol] 10 Int._Unit/L Normal 6-46 [facility] Comment on above: Performed By: #### 1 2981993, 0624513, 3550077, 7735332, 7796248, 7256852 ####[address] [place] [address] AST [Catalytic activity/Vol] 18 Int._Unit/L Normal 5-43 [facility] Comment on above: Performed By: #### 1 3204690, 6609571, 3490579, 2510748, 1488981, 1411001 ####[address] [place] [address] Bilirubin [Mass/Vol] 0.4 mg/dL Normal 0.0-1.1 [facility] Comment on above: Performed By: #### 1 4444497, 2118161, 5769034, 3899913, 9645165, 8616725 ####[address] [place] [address] Globulin (S) [Mass/Vol] 3.6 g/dL Normal 1.4-4.0 [facility] Comment on above: Performed By: #### 1 5389791, 0966804, 7858162, 0223483, 7199066, 9599513 ####[facility] [address] [place] [address] Protein [Mass/Vol] 6.7 g/dL Normal 6.0-7.8 [facility] Comment on above: Performed By: #### 1 0229342, 7378765, 2626620, 3815115, 3229753, 1399859 ####[address] [place] [address] Bilirubin.direct [Mass/Vol] mg/dL Normal 0.1-0.4 [facility] Comment on above: Performed By: #### 1 8294391, 0397533, 3377350, 5872167, 2539724, 5643217 ####[facility] [address] [place] [address] Lipase Levelon 07-25-2023 Lipase [Catalytic activity/Vol] 28 U/L Normal 13-58 [facility] Comment on above: Performed By: #### 1 9303409, 8531225, 3717323, 9895005, 5576859, 2907703 ####[facility] [address] [place] [address] UA With Cult Reflexon 2022 Bacteria LM Ql (Urine sed) TRACE Normal Trace [facility] Comment on above: Performed By: #### 2 625542, 82576640 ####[facility] [address] [place] [address] Bilirubin Ql (U) Negative Normal Negative [facility] Comment on above: Performed By: #### 2 341720, 92608612 ####[address] [address] Clarity (U) SL CLOUDY Abnormal Clear [facility] Comment on above: Performed By: #### 2 826873, 18687643 ####[facility] [address] [place] [address] Color (U) YELLOW Normal Yellow [facility] Comment on above: Performed By: #### 2 429515, 26296679 ####[address] [address] Epithelial cells.squamous LM.HPF (Urine sed) [#/Area] 0-2 Normal 0-2 [facility] Comment on above: Performed By: #### 2 012033, 23870296 ####[facility] [address] [place] [address] Glucose Test strip (U) [Mass/Vol] Negative Normal Negative [facility] Comment on above: Performed By: #### 2 478688, 06291658 ####[facility] [address] [place] [address] Hemoglobin Ql (U) Negative Normal Negative [facility] Comment on above: Performed By: #### 2 614234, 87302344 ####[facility] [address] [place] [address] Ketones (U) [Mass/Vol] Negative Normal Negative [facility] Comment on above: Performed By: #### 2 911469, 41309920 ####[facility] [address] [place] [address] Ronald.plasma/Ronald .RBC (Bld) [Mass ratio] 0-3 Normal 0-3 [facility] Comment on above: Performed By: #### 2 759443, 21820597 ####[facility] [address] [place] [address] Nitrite Ql (U) Negative Normal Negative [facility] Comment on above: Performed By: #### 2 642197, 05202954 ####[facility] [address] [place] [address] pH (U) 7.5 [pH] Invalid Interpretation Code 5.0-9.0 [facility] Comment on above: Performed By: #### 2 580447, 97372618 ####[facility] [address] [place] [address] Protein (U) [Mass/Vol] Negative Normal Negative [facility] Comment on above: Performed By: #### 2 444216, 18619864 ####[facility] [address] [place] [address] Specific gravity (U) [Rel density] 1.010 Invalid Interpretation Code 1.005-1.030 [facility] Comment on above: Performed By: #### 2 964255, 99805484 ####[facility] [address] [place] [address] Type of Urine collection method Clean Catch Normal [facility] Comment on above: Performed By: #### 2 752294, 35778011 ####[facility] [address] [place] [address] Urobilinogen Qn (U) 1.0 {Rola'U}/dL Normal 0.0-1.0 [facility] Comment on above: Performed By: #### 2 276324, 49327463 ####[facility] [address] [place] [address] WBC Auto Ql (U) 2+ Abnormal Negative [facility] Comment on above: Performed By: #### 2 354366, 26065107 ####[facility] [address] [place] [address] WBC LM.HPF (Urine sed) [#/Area] 0-5 Normal 0-5 [facility] Comment on above: Performed By: #### 2 011337, 18530777 ####[facility] [address] URINALYSISOrdered By: Emy Aiken on 07-25-2023 Bacteria [...] AM) Normal Negative [facility] UA Auto SS Ronald.plasma/Ronald .RBC (Bld) [Mass ratio] 0-3 /HPF Normal [...] Desc Clean Catch (07/25/23 8:33 AM) Normal [facility] UA Auto SS Urobilinogen Qn (U) 1.8071511 {Rola'U}/dL Normal 0.0 - 1.0 EU/dL FT UA Auto SS WBC Auto Ql (U) 2+ *ABN* (07/25/23 8:33 AM) Invalid Interpretation Code Negative [facility] UA Auto SS WBC LM.HPF (Urine sed) [#/Area] 0-5 /HPF Normal 0-5/HPF [facility] UA Auto SS US Limitedon 07-25 US Limited Normal [facility] eGFRon 07-25-2023 GFR/1.73 sq M.predicted among non-blacks MDRD (S/P/Bld) [Vol rate/Area] 125 mL/min/1.73 m2 Normal >=59 [facility] Comment on above: Order Comment: Order added by Discern Expert. Result Comment: Avionics Installer lucy kidney disease could be indicated at eGFR's of less than 60 mL/min/1.73m2. Kidney failure is indicated at less than 15 mL/min/1.73m2. Performed By: #### 1 6111209, 9764799, 7200511, 3864294, 4972567, 9898643 ####[facility] [address] [place] [address] C Urineon 06-30-2023 Bacteria identified Cx Nom (U) Normal [facility] Comment on above: Performed By: #### 2 128924 ####[facility] [address] [place] [address] Family Medicine Office/Clini c Noteon 06-28-2023 Family Medicine Office/Clinic Note Normal [facility] Comment on above: Result Comment: Elec tronically Signed By: Татьяна NICHOLS, Roverto Barron\.br\Date and Time Signed: 06/28/23 11:41 EDT Patient Educationon 06-28-20 Patient Education Normal [facility] ABO/Rhon 06-14-2023 ABO/Rh Positive Invalid Interpretation Code [facility] Comment on above: Performed By: #### 2 905329 ####[facility] [address] [place] [address] Auto Diffon 06-14-2023 Basophils/100 WBC (Bld) 0.8 % Normal 0.0-2.0 [facility] Comment on above: Order Comment: Order Added by Discern Expert. Performed By: #### 2 467468, 1517220, 1506326, 7961472, 5169267, 33612907 ####[facility] [address] [place] [address] Basophils/Leukocytes Auto (Bld) [Pure # fraction] 0.0 E9/L Normal 0.0-0.2 [facility] Comment on above: Order Comment: Order Added by Discern Expert. Performed By: #### 2 033696, 3348646, 4178872, 6626311, 2343136, 73802503 ####[facility] [address] [place] [address] Eosinophils/100 WBC (Bld) 1.9 % Normal 0.0-8.0 [facility] Comment on above: Order Comment: Order Added by Discern Expert. Performed By: #### 2 727077, 0524775, 9290069, 3375238, 3327742, 18892624 ####[facility] [address] [place] [address] Eosinophils/Leukocytes Auto (Bld) [Pure # fraction] 0.1 E9/L Normal 0.0-0.5 [facility] Comment on above: Order Comment: Order Added by Discern Expert. Performed By: #### 2 565094, 0470472, 8840814, 7922423, 2475595, 03504905 ####[address] [place] [address] Lymphocytes/100 WBC (Bld) 24.5 % Normal 14.0-50.0 [facility] Comment on above: Order Comment: Order Added by Discern Expert. Performed By: #### 2 307850, 8966093, 4172157, 8380396, 4195515, 08831757 ####[address] [place] [address] Lymphocytes/Leukocytes Auto (Bld) [Pure # fraction] 1.3 E9/L Normal 1.0-4.0 [facility] Comment on above: Order Comment: Order Added by Discern Expert. Performed By: #### 2 540580, 3636148, 1888932, 2470110, 2299964, 11331731 ####[address] [address] Monocytes/100 WBC (Bld) 7.8 % Normal 4.0-14.0 [facility] Comment on above: Order Comment: Order Added by Gisselle Expert. Performed By: #### 2 936791, 9074650, 7577386, 4415938, 1588318, 26764309 ####[address] [address] Monocytes/Leukocytes Auto (Bld) [Pure # fraction] 0.4 E9/L Normal 0.2-1.0 [facility] Comment on above: Order Comment: Order Added by Discern Expert. Performed By: #### 2 743410, 4790983, 5503263, 1703247, 8895156, 81048355 ####[address] [address] Neutrophils/100 WBC (Bld) 65.0 % Normal 36.0-75.0 [facility] Comment on above: Order Comment: Order Added by Discern Expert. Performed By: #### 2 759929, 4555530, 1659573, 7447036, 6955464, 11580761 ####[address] [place] [address] Neutrophils/Leukocytes Auto (Bld) [Pure # fraction] 3.5 E9/L Normal 2.0-7.5 [facility] Comment on above: Order Comment: Order Added by Discern Expert. Performed By: #### 2 100438, 2479696, 4335350, 2652890, 8566240, 10163172 ####[facility] [address] [place] [address] BLOOD BANKOrdered By: Keila Kumar on 06-14-2023 ABO/Rh Interp Positive Invalid Interpretation Code [facility] BB Subsection BMPon 06-14-2023 Creatinine [Mass/Vol] 0.5 mg/dL Normal 0.5-1.3 [facility] Comment on above: Performed By: #### 2 546050, 3755095, 2889414, 8781682, 4961722, 68228892 ####[facility] [address] [place] [address] Urea nitrogen [Mass/Vol] 6 mg/dL Normal 5-21 [facility] Comment on above: Performed By: #### 2 985278, 0550944, 9694011, 3979358, 0338966, 06109601 ####[facility] [address] [place] [address] Urea nitrogen/Creatinine [Mass ratio] 12 No Units Normal 10-20 [facility] Comment on above: Performed By: #### 2 460474, 6123798, 0668970, 8546787, 9211578, 44656443 ####[facility] [address] [place] [address] Anion gap [Moles/Vol] 10 mmol/L Normal 6-16 [facility] Comment on above: Performed By: #### 2 979124, 5736053, 9931530, 9263554, 1889596, 74470851 ####[facility] [address] [place] [address] Calcium [Mass/Vol] 8.7 mg/dL Low 8.9-11.1 [facility] Comment on above: Performed By: #### 2 153427, 7524958, 3832242, 2393572, 9875488, 50722367 ####[facility] [address] [place] [address] Chloride [Moles/Vol] 107 mmol/L Normal 101-111 [facility] Comment on above: Performed By: #### 2 063861, 6464132, 0023081, 2805385, 6597044, 54320241 ####[facility] [address] [place] [address] CO2 [Moles/Vol] 21 mmol/L Normal 21-31 [facility] Comment on above: Performed By: #### 2 996474, 3840764, 8179316, 9241579, 8233742, 22274611 ####[facility] [address] [place] [address] Glucose [Mass/Vol] 77 mg/dL Normal 55-199 [facility] Comment on above: Result Comment: If t his glucose result represents a fasting glucose, interpretation should refer to the following reference range: 55-99 mg/dL Performed By: #### 2 624404, 8010457, 8116308, 1016584, 5938961, 56811265 ####[facility] [address] [place] [address] Potassium [Moles/Vol] 3.8 mmol/L Normal 3.5-5.3 [facility] Comment on above: Performed By: #### 2 689389, 7452557, 4566527, 8506826, 0693542, 85025086 ####[facility] [address] [place] [address] Sodium [Moles/Vol] 134 mmol/L Low 135-145 [facility] Comment on above: Performed By: #### 2 112139, 2325747, 0472374, 7077702, 4109257, 50157072 ####[facility] [address] [place] [address] BhCG Quanton 06-14-2023 HCG.beta subunit Qn 332284 m[IU]/mL High 1-3 [facility] Comment on above: Result Comment: GEST ATIONAL AGE HCG RANGE (mIU/mL) NON- <1-3 0.2-1 WEEKS 5-50 1-2 WEEKS 50-500 2-3 WEEKS 100-5,000 3-4 WEEKS 500-10,000 4-5 WEEKS 1,000-50,000 5-6 WEEKS 10,000-100,000 6-8 WEEKS 15,000-200,000 8-12 WEEKS 10,000-100,000 Performed By: #### 2 792201 ####[facility] [address] [place] [address] CBC w/ Auto Diffon Erythrocyte distribution width (RBC) [Ratio] 12.6 % Normal 10.9-14.2 [facility] Comment on above: Performed By: #### 2 331417, 1470425, 9142874, 1329603, 1668013, 15036510 ####[facility] [address] [place] [address] Hematocrit (Bld) [Volume fraction] 39.9 % Normal 34.0-46.0 [facility] Comment on above: Performed By: #### 2 505178, 7852944, 3499168, 8695731, 3829439, 25088597 ####[facility] [address] [place] [address] Hemoglobin (Bld) [Mass/Vol] 13.4 g/dL Normal 12.0-16.0 [facility] Comment on above: Performed By: #### 2 713934, 6406194, 1409620, 0352674, 7380752, 09546698 ####[facility] [address] [place] [address] MCH (RBC) [Entitic mass] 29.8 pg Normal 27.0-34.0 [facility] Comment on above: Performed By: #### 2 550012, 1629131, 0740961, 6804734, 1595816, 62771875 ####[address] MCHC (RBC) [Mass/Vol] 33.6 g/dL Normal 31.4-36.0 [facility] Comment on above: Performed By: #### 2 297078, 2360053, 2831714, 3189743, 6153842, 66112923 ####[address] MCV (RBC) [Entitic vol] 88.8 fL Normal 80.0-100.0 [facility] Comment on above: Performed By: #### 2 214214, 6742358, 8561584, 9914637, 6044325, 78029825 ####[address] Platelet mean volume (Bld) [Entitic vol] 8.4 fL Normal 6.4-10.8 [facility] Comment on above: Performed By: #### 2 683256, 0151274, 5142060, 7263633, 2775487, 37221255 ####[address] Platelets (Bld) [#/Vol] 225.0 E9/L Normal 150.0-500.0 [facility] Comment on above: Performed By: #### 2 458055, 7058398, 9964535, 4818634, 0186204, 34957485 ####[address] RBC (Bld) [#/Vol] 4.5 E12/L Normal 4.3-5.9 [facility] Comment on above: Performed By: #### 2 717228, 2847145, 4112029, 4894439, 6566127, 63017569 ####[address] [address] WBC corrected for nucl RBC Auto (Bld) [#/Vol] 5.4 E9/L Normal 4.0-11.0 [facility] Comment on above: Performed By: #### 2 250919, 9107173, 3840590, 0322306, 1147235, 10927919 ####[facility] [address] [place] [address] CHEMISTRYOrdered By: SYSTEM SYSTEM on 06-14-2023 Albumin [...] 199 mg/dL FT Remisol HCG.beta subunit Qn 976851 m[IU]/mL High 1 - 3 mIU/mL [facility] [...] Consent for Treatmenton 05-17 Consent for Treatment [id number]:12 7 Normal [facility] ED Clinical Summaryon 2022 ED Clinical [address] [facility] ED Note-Physicianon 06-14-20 ED Note-Physician Normal [facility] Comment on above: Result Comment: Elec tronically Signed By: Jos Ugalde PA-C\.br\Date and Time Signed: 06/14/23 11:58 EDT\.br\Electronically Co-Signed By: Kristian Guillermo DO\.br\Date and Time Co-Signed: 06/14/23 17:02 EDT ED Patient Education Noteon 06-14-2023 ED Patient Education Note Normal [facility] ED Patient Summaryon 023 ED Patient Summary Normal [facility] HEMATOLOGYOrdered By: SYSTEM SYSTEM on 06-14-2023 [...] 4.5 E12/L Normal 4.3 - 5.9 E12/L [facility] HemeAutoSS WBC corrected for nucl RBC Auto (Bld) [#/Vol] 5.4 E9/L Normal 4.0 - 11.0 E9/L [facility] HemeAutoSS Hep Func Panelon 06-14-2023 Bilirubin.indirect [Mass or moles/Vol] UTC Abnormal 0.1-0.9 [facility] Comment on above: Result Comment: Resu lt verified by Discern Rule. Performed result UTC (Unable to Calculate) was sent as an Alpha code due the inability to calculate a valid numeric value. Performed By: #### 2 649387, 3044210, 8112562, 9856634, 3720905, 52267031 ####[facility] [address] [place] [address] Albumin [Mass/Vol] 3.5 g/dL Normal 3.3-5.0 [facility] Comment on above: Performed By: #### 2 798457, 5652077, 3267257, 6583837, 1585770, 73831465 ####[facility] [address] [place] [address] Albumin/Globulin (S) [Mass conc ratio] 1.1 Normal 1.1-2.2 [facility] Comment on above: Performed By: #### 2 157323, 6783719, 0853480, 4002767, 7062326, 91644079 ####[facility] [address] [place] [address] ALP [Catalytic activity/Vol] 34 Int._Unit/L Normal 21-98 [facility] Comment on above: Performed By: #### 2 593469, 8432040, 0819565, 2559125, 7410539, 72516153 ####[address] [place] [address] ALT No additional P-5'-P [Catalytic activity/Vol] 13 Int._Unit/L Normal 6-46 [facility] Comment on above: Performed By: #### 2 633440, 6695233, 1805280, 4377666, 3265763, 28680426 ####[facility] [address] [place] [address] AST [Catalytic activity/Vol] 17 Int._Unit/L Normal 5-43 [facility] Comment on above: Performed By: #### 2 329799, 4474229, 5461160, 7972087, 8891558, 41860098 ####[facility] [address] [place] [address] Bilirubin [Mass/Vol] 0.6 mg/dL Normal 0.0-1.1 [facility] Comment on above: Performed By: #### 2 127861, 1629932, 9711208, 6927614, 7041526, 80902021 ####[address] [place] [address] Globulin (S) [Mass/Vol] 3.3 g/dL Normal 1.4-4.0 [facility] Comment on above: Performed By: #### 2 591796, 5889661, 7222846, 8706073, 8436390, 15067867 ####[facility] [address] [place] [address] Protein [Mass/Vol] 6.8 g/dL Normal 6.0-7.8 [facility] Comment on above: Performed By: #### 2 723650, 3183164, 5118917, 2114697, 8367217, 05227748 ####[facility] [address] [place] [address] Bilirubin.direct [Mass/Vol] mg/dL Normal 0.1-0.4 [facility] Comment on above: Performed By: #### 2 427995, 1559187, 3768236, 2924118, 6997415, 96265293 ####[facility] [address] [place] [address] Lipase Levelon 06-14-2023 Lipase [Catalytic activity/Vol] 28 U/L Normal 13-58 [facility] Comment on above: Performed By: #### 2 304116, 6889870, 6864155, 1923070, 8584401, 22572629 ####[facility] [address] [facility] [place] [address] Progress Note-Nurseon 2022 Progress Note-Nurse Lizet RN verbalize d she was unable to locate patient at this time Normal [facility] UA With Cult Reflexon 2022 Bacteria LM Ql (Urine sed) TRACE Normal Trace [facility] Comment on above: Performed By: #### 1 7513940 ####[facility] [address] [place] [address] Bilirubin Ql (U) Negative Normal Negative [facility] Comment on above: Performed By: #### 1 0212051 ####[address] [address] Clarity (U) CLEAR Normal Clear [facility] Comment on above: Performed By: #### 1 3040177 ####[facility] [address] [place] [address] Color (U) YELLOW Normal Yellow [facility] Comment on above: Performed By: #### 1 9436840 ####[facility] [address] [place] [address] Epithelial cells.squamous LM.HPF (Urine sed) [#/Area] 3-4 Normal 0-2 [facility] Comment on above: Performed By: #### 1 8914022 ####[facility] [address] [place] [address] Glucose Test strip (U) [Mass/Vol] Negative Normal Negative [facility] Comment on above: Performed By: #### 1 0179935 ####[facility] [address] [place] [address] Hemoglobin Ql (U) Negative Normal Negative [facility] Comment on above: Performed By: #### 1 7286082 ####[facility] [address] [place] [address] Ketones (U) [Mass/Vol] Negative Normal Negative [facility] Comment on above: Performed By: #### 1 0633391 ####[address] [address] Ronald.plasma/Ronald .RBC (Bld) [Mass ratio] 0-3 Normal 0-3 [facility] Comment on above: Performed By: #### 1 9172620 ####[address] [address] Mucus Ql (Urine sed) TRACE Normal [facility] Comment on above: Performed By: #### 1 5691611 ####[address] [address] Nitrite Ql (U) Negative Normal Negative [facility] Comment on above: Performed By: #### 1 5843055 ####[address] [address] pH (U) 6.5 [pH] Invalid Interpretation Code 5.0-9.0 [facility] Comment on above: Performed By: #### 1 5809500 ####[address] [address] Protein (U) [Mass/Vol] Negative Normal Negative [facility] Comment on above: Performed By: #### 1 2207219 ####[address] [address] Specific gravity (U) [Rel density] 1.015 Invalid Interpretation Code 1.005-1.030 [facility] Comment on above: Performed By: #### 1 3533811 ####[address] [address] Type of Urine collection method Clean Catch Normal [facility] Comment on above: Performed By: #### 1 9666214 ####[address] [address] Urobilinogen Qn (U) 0.2 {Rola'U}/dL Normal 0.0-1.0 [facility] Comment on above: Performed By: #### 1 6967941 ####[address] [address] WBC Auto Ql (U) TRACE Abnormal Negative [facility] Comment on above: Performed By: #### 1 3696838 ####[facility] [address] [place] [address] WBC LM.HPF (Urine sed) [#/Area] 0-5 Normal 0-5 [facility] Comment on above: Performed By: #### 1 6910413 ####[facility] [address] [place] [address] URINALYSISOrdered By: An Mccarty on 06-14-2023 Bacteria [...] AM) Normal Negative [facility] UA Auto SS Ronald.plasma/Ronald .RBC (Bld) [Mass ratio] 0-3 /HPF Normal [...] [facility] UA Auto SS Urobilinogen Qn (U) 0.3138835 {Rola'U}/dL Normal 0.0 - 1.0 EU/dL [facility] UA Auto SS WBC Auto Ql (U) Trace *ABN* (06/14/23 10:13 AM) Invalid Interpretation Code Negative [facility] UA Auto SS WBC LM.HPF (Urine sed) [#/Area] 0-5 /HPF Normal 0-5/HPF [facility] UA Auto SS US 1st Trimesteron 06-14-2023 US 1st Trimester Normal [facility] eGFRon 06-14-2023 GFR/1.73 sq M.predicted among non-blacks MDRD (S/P/Bld) [Vol rate/Area] 130 mL/min/1.73 m2 Normal >=59 [facility] Comment on above: Order Comment: Order added by Discern Expert. Result Comment: Avionics Installer lucy kidney disease could be indicated at eGFR's of less than 60 mL/min/1.73m2. Kidney failure is indicated at less than 15 mL/min/1.73m2. Performed By: #### 2 586472, 1320725, 9042167, 5285359, 2945405, 83465050 ####[facility] [address] [place] [address] CHEMISTRYOrdered By: SYSTEM SYSTEM on 06-12-2023 TSH Qn 3.80 m[IU]/L Normal 0.34 - 5.60 mcIU/mL [facility] Remisol Consent for Treatmenton 05-16 Consent for Treatment [id number]#1.00CD:12 7 Normal [facility] Physician Orderon 06-12-2023 Physician Order [id number]#1.00CD:12 7 Normal [facility] TSHon 06-12-2023 TSH Qn 3.80 m[IU]/L Normal 0.34-5.60 [facility] Comment on above: Performed By: #### 2 631583 ####[facility] [address] [place] [address] BhCG Quanton 05-22-2023 HCG.beta subunit Qn 920289 m[IU]/mL High 1-3 [facility] Comment on above: Result Comment: GEST ATIONAL AGE HCG RANGE (mIU/mL) NON- <1-3 0.2-1 WEEKS 5-50 1-2 WEEKS 50-500 2-3 WEEKS 100-5,000 3-4 WEEKS 500-10,000 4-5 WEEKS 1,000-50,000 5-6 WEEKS 10,000-100,000 6-8 WEEKS 15,000-200,000 8-12 WEEKS 10,000-100,000 Performed By: #### 2 062731 ####[facility] [address] [place] [address] Discharge Instructionson Discharge Instructions [id number]#1.00CD:1 27 Normal [facility] ED Clinical Summaryon [address] [facility] ED Note-Physicianon 05-22-20 23 ED Note-Physician Normal [facility] Comment on above: Result Comment: Elec tronically Signed By: Gopi Rodriguez DO\.br\Date and Time Signed: 05/21/23 23:17 EDT ED Patient Education Noteon 05-22-2023 ED Patient Education Note Normal [facility] ED Patient Summaryon 023 ED Patient Summary Normal [facility] UA With Cult Reflexon 2022 Bacteria LM Ql (Urine sed) TRACE Normal Trace [facility] Comment on above: Performed By: #### 1 [id number] ####[facility] [address] [place] [address] Bilirubin Ql (U) Negative Normal Negative [facility] Comment on above: Performed By: #### 1 5739466 ####[facility] [address] [place] [address] Clarity (U) CLEAR Normal Clear [facility] Comment on above: Performed By: #### 1 8825471 ####[facility] [address] [place] [address] Color (U) DARK YELLO Abnormal Yellow [facility] Comment on above: Performed By: #### 1 8933964 ####[facility] [address] [place] [address] Epithelial cells.squamous LM.HPF (Urine sed) [#/Area] 0-2 Normal 0-2 [facility] Comment on above: Performed By: #### 1 6608643 ####[facility] [address] [place] [address] Glucose Test strip (U) [Mass/Vol] Negative Normal Negative [facility] Comment on above: Performed By: #### 1 0334956 ####[facility] [address] [place] [address] Hemoglobin Ql (U) TRACE Abnormal Negative [facility] Comment on above: Performed By: #### 1 5719179 ####[facility] [address] [place] [address] Ketones (U) [Mass/Vol] TRACE Abnormal Negative [facility] Comment on above: Performed By: #### 1 3486672 ####[facility] [address] [place] [address] Ronald.plasma/Ronald .RBC (Bld) [Mass ratio] 4-20 Normal 0-3 [facility] Comment on above: Performed By: #### 1 5015654 ####[facility] [address] [facility] [place] [address] Mucus Ql (Urine sed) 1+ Normal [facility] Comment on above: Performed By: #### 1 4718276 ####[facility] [address] [facility] [place] [address] Nitrite Ql (U) Negative Normal Negative [facility] Comment on above: Performed By: #### 1 7965243 ####[facility] [address] [place] [address] pH (U) 6.0 [pH] Invalid Interpretation Code 5.0-9.0 [facility] Comment on above: Performed By: #### 1 8738129 ####[address] [address] Protein (U) [Mass/Vol] 2+ Abnormal Negative [facility] Comment on above: Performed By: #### 1 9124663 ####[place] [address] Specific gravity (U) [Rel density] >=1.030 Invalid Interpretation Code 1.005-1.030 [facility] Comment on above: Performed By: #### 1 7849590 ####[place] [address] Type of Urine collection method Clean Catch Normal [facility] Comment on above: Performed By: #### 1 1442589 ####[address] [address] Urobilinogen Qn (U) 0.2 {Rola'U}/dL Normal 0.0-1.0 [facility] Comment on above: Performed By: #### 1 0922875 ####[address] [address] WBC Auto Ql (U) Negative Normal Negative [facility] Comment on above: Performed By: #### 1 8599088 ####[address] [address] WBC LM.HPF (Urine sed) [#/Area] 0-5 Normal 0-5 [facility] Comment on above: Performed By: #### 1 8356509 ####[address] [address] US 1st Trimesteron 05-22-2023 US 1st Trimester Normal [facility] Auto Diffon 05-21-2023 Basophils/100 WBC (Bld) 1.0 % Normal 0.0-2.0 [facility] Comment on above: Order Comment: Order Added by Discern Expert. Performed By: #### 2 646233, 4050299, 03604201, 62017225, 4981031, 3811239, 8803843 ####[address] [place] [address] Basophils/Leukocytes Auto (Bld) [Pure # fraction] 0.1 E9/L Normal 0.0-0.2 [facility] Comment on above: Order Comment: Order Added by Discern Expert. Performed By: #### 2 382958, 5220577, 65389255, 34785143, 9566953, 2634713, 6955585 ####[address] [place] [address] Eosinophils/100 WBC (Bld) 1.5 % Normal 0.0-8.0 [facility] Comment on above: Order Comment: Order Added by Discern Expert. Performed By: #### 2 608251, 2196424, 10576637, 91003898, 5618163, 7647309, 7587187 ####[address] [address] Eosinophils/Leukocytes Auto (Bld) [Pure # fraction] 0.1 E9/L Normal 0.0-0.5 [facility] Comment on above: Order Comment: Order Added by Discern Expert. Performed By: #### 2 195007, 8672472, 73597948, 85986998, 0071901, 8764767, 0148984 ####[address] [address] Lymphocytes/100 WBC (Bld) 36.6 % Normal 14.0-50.0 [facility] Comment on above: Order Comment: Order Added by Discern Expert. Performed By: #### 2 408196, 5823846, 35842917, 45932913, 5216874, 6552566, 0490983 ####[address] [address] Lymphocytes/Leukocytes Auto (Bld) [Pure # fraction] 2.5 E9/L Normal 1.0-4.0 [facility] Comment on above: Order Comment: Order Added by Discern Expert. Performed By: #### 2 369878, 6853307, 48596768, 27209283, 8212055, 7185786, 5647632 ####[facility] [address] [place] [address] Monocytes/100 WBC (Bld) 8.2 % Normal 4.0-14.0 [facility] Comment on above: Order Comment: Order Added by Discern Expert. Performed By: #### 2 106877, 6947707, 10362783, 83144615, 6863523, 4547149, 7520673 ####[facility] [address] [place] [address] Monocytes/Leukocytes Auto (Bld) [Pure # fraction] 0.6 E9/L Normal 0.2-1.0 [facility] Comment on above: Order Comment: Order Added by Discern Expert. Performed By: #### 2 765872, 1549918, 98218236, 15142717, 8353011, 9606528, 5266905 ####[facility] [address] [place] [address] Neutrophils/100 WBC (Bld) 52.7 % Normal 36.0-75.0 [facility] Comment on above: Order Comment: Order Added by Discern Expert. Performed By: #### 2 089237, 4581738, 82139560, 33020224, 8714731, 8918355, 3374104 ####[facility] [address] [place] [address] Neutrophils/Leukocytes Auto (Bld) [Pure # fraction] 3.6 E9/L Normal 2.0-7.5 [facility] Comment on above: Order Comment: Order Added by Discern Expert. Performed By: #### 2 579301, 4922495, 18231195, 83701497, 2638304, 4372590, 8095929 ####[facility] [address] [place] [address] BMPon 05-21-2023 Creatinine [Mass/Vol] 0.7 mg/dL Normal 0.5-1.3 [facility] Comment on above: Performed By: #### 2 658488, 4242521, 38761526, 18078459, 8832277, 3461280, 3763233 ####[facility] [address] [place] [address] Urea nitrogen [Mass/Vol] 8 mg/dL Normal 5-21 [facility] Comment on above: Performed By: #### 2 867274, 0438167, 70785297, 58219071, 5601362, 8829003, 0439857 ####[facility] [address] [place] [address] Urea nitrogen/Creatinine [Mass ratio] 11 No Units Normal 10-20 [facility] Comment on above: Performed By: #### 2 384891, 8247900, 15826533, 15721354, 7614339, 9867917, 2480037 ####[facility] [address] [place] [address] Anion gap [Moles/Vol] 12 mmol/L Normal 6-16 [facility] Comment on above: Performed By: #### 2 156846, 4378214, 64820717, 69666737, 1514570, 2241815, 0677295 ####[facility] [address] [place] [address] Calcium [Mass/Vol] 9.2 mg/dL Normal 8.9-11.1 [facility] Comment on above: Performed By: #### 2 252934, 3075812, 06290148, 61521716, 3001598, 1792449, 8024178 ####[facility] [address] [place] [address] Chloride [Moles/Vol] 104 mmol/L Normal 101-111 [facility] Comment on above: Performed By: #### 2 328526, 6958811, 83227122, 16753700, 3463570, 0196857, 4626065 ####[facility] [address] [place] [address] CO2 [Moles/Vol] 24 mmol/L Normal 21-31 [facility] Comment on above: Performed By: #### 2 126218, 8757550, 13211735, 28269799, 3606364, 2288854, 7621803 ####[facility] [address] [place] [address] Glucose [Mass/Vol] 87 mg/dL Normal 55-199 [facility] Comment on above: Result Comment: If t his glucose result represents a fasting glucose, interpretation should refer to the following reference range: 55-99 mg/dL Performed By: #### 2 606460, 4759937, 97832736, 97334344, 4183982, 0300667, 0810300 ####[facility] [address] [place] [address] Potassium [Moles/Vol] 3.2 mmol/L Low 3.5-5.3 [facility] Comment on above: Performed By: #### 2 107312, 9641193, 72374937, 87299411, 1356853, 2164711, 4062724 ####[facility] [address] [place] [address] Sodium [Moles/Vol] 137 mmol/L Normal 135-145 [facility] Comment on above: Performed By: #### 2 708929, 2085342, 12101156, 26856858, 4063778, 8041524, 8125688 ####[facility] [address] [place] [address] CBC w/ Auto Diffon 3 Erythrocyte distribution width (RBC) [Ratio] 13.3 % Normal 10.9-14.2 [facility] Comment on above: Performed By: #### 2 600406, 7682761, 03315969, 46515038, 3738232, 2175030, 7893750 ####[facility] [address] [place] [address] Hematocrit (Bld) [Volume fraction] 39.0 % Normal 34.0-46.0 [facility] Comment on above: Performed By: #### 2 246731, 5920251, 58116476, 81283395, 8514985, 3806522, 0224332 ####[facility] [address] [place] [address] Hemoglobin (Bld) [Mass/Vol] 13.3 g/dL Normal 12.0-16.0 [facility] Comment on above: Performed By: #### 2 145128, 3162214, 75072101, 99755518, 0852138, 0762279, 8642572 ####[facility] [address] [place] [address] MCH (RBC) [Entitic mass] 30.3 pg Normal 27.0-34.0 [facility] Comment on above: Performed By: #### 2 008231, 8115547, 03804617, 61089463, 6944131, 4867505, 2508880 ####[address] [address] MCHC (RBC) [Mass/Vol] 34.2 g/dL Normal 31.4-36.0 [facility] Comment on above: Performed By: #### 2 582371, 5929459, 66497173, 46917376, 1511874, 6915240, 8720076 ####[address] [address] MCV (RBC) [Entitic vol] 88.7 fL Normal 80.0-100.0 [facility] Comment on above: Performed By: #### 2 795520, 7435152, 09756482, 59589511, 5917912, 1548583, 8548944 ####[address] [address] Platelet mean volume (Bld) [Entitic vol] 7.8 fL Normal 6.4-10.8 [facility] Comment on above: Performed By: #### 2 633857, 1481891, 11539062, 03397687, 7222356, 0888331, 4301450 ####[address] [place] [address] Platelets (Bld) [#/Vol] 225.0 E9/L Normal 150.0-500.0 [facility] Comment on above: Performed By: #### 2 381357, 2499611, 71681640, 47965693, 0668325, 9820355, 8578731 ####[facility] [address] [place] [address] RBC (Bld) [#/Vol] 4.4 E12/L Normal 4.3-5.9 [facility] Comment on above: Performed By: #### 2 350486, 0485466, 64730677, 90644895, 1686071, 9889172, 4254033 ####[facility] [address] [place] [address] WBC corrected for nucl RBC Auto (Bld) [#/Vol] 6.8 E9/L Normal 4.0-11.0 [facility] Comment on above: Performed By: #### 2 275930, 2687040, 58472905, 01260437, 0789277, 1675646, 1871788 ####[facility] [address] [place] [address] CHEMISTRYOrdered By: SYSTEM SYSTEM on 05-21-2023 HCG.beta subunit Qn 745304 m[IU]/mL High 1 - 3 mIU/mL [facility] [...] 120 mL/min/1.73 m2 Normal >=59mL/min/ 1.73 m2 [facility] Chem S Globulin (S) [Mass/Vol] 3.1 g/dL [...] Remisol Consent for Treatmenton Consent for Treatment [id number]#1.00CD:12 7 Normal [facility] HEMATOLOGYOrdered By: SYSTEM SYSTEM on 05-21-2023 [...] 34.2 g/dL Normal 31.4 - 36.0 gm/dL [facility] HemeAutoSS MCV (RBC) [Entitic vol] 88.7 fL Normal 80.0 - 100.0 fL [facility] HemeAutoSS Platelet mean volume (Bld) [Entitic vol] 7.8 fL Normal 6.4 - 10.8 fL [facility] HemeAutoSS Platelets (Bld) [#/Vol] 225.0 E9/L Normal 150.0 - 500.0 E9/L [facility] HemeAutoSS RBC (Bld) [#/Vol] 4.4 E12/L Normal 4.3 - 5.9 E12/L [facility] HemeAutoSS WBC corrected for nucl RBC Auto (Bld) [#/Vol] 6.8 E9/L Normal 4.0 - 11.0 E9/L [facility] HemeAutoSS Hep Func Panelon 05-21-2023 Bilirubin.indirect [Mass or moles/Vol] UTC Abnormal 0.1-0.9 [facility] Comment on above: Result Comment: Resu lt verified by Discern Rule. Performed result UTC (Unable to Calculate) was sent as an Alpha code due the inability to calculate a valid numeric value. Performed By: #### 2 666499, 8175192, 07376612, 46551910, 5064513, 2686560, 5056129 ####[facility] [address] [place] [address] Albumin [Mass/Vol] 3.8 g/dL Normal 3.3-5.0 [facility] Comment on above: Performed By: #### 2 634988, 2427565, 93214507, 64262951, 1053111, 4492055, 8917651 ####[facility] [address] [place] [address] Albumin/Globulin (S) [Mass conc ratio] 1.2 Normal 1.1-2.2 [facility] Comment on above: Performed By: #### 2 167756, 5475367, 51394255, 39757637, 9323956, 4791935, 3929265 ####[facility] [address] [place] [address] ALP [Catalytic activity/Vol] 42 Int._Unit/L Normal 21-98 [facility] Comment on above: Performed By: #### 2 755446, 4429039, 77589615, 76821260, 3136094, 1923701, 0807265 ####[facility] [address] [place] [address] ALT No additional P-5'-P [Catalytic activity/Vol] 13 Int._Unit/L Normal 6-46 [facility] Comment on above: Performed By: #### 2 633587, 7282721, 37212819, 15318775, 4041640, 8189132, 2030682 ####[facility] [address] [place] [address] AST [Catalytic activity/Vol] 14 Int._Unit/L Normal 5-43 [facility] Comment on above: Performed By: #### 2 915278, 9635766, 50677723, 16618857, 4760130, 9873777, 7510903 ####[facility] [address] [place] [address] Bilirubin [Mass/Vol] 0.5 mg/dL Normal 0.0-1.1 [facility] Comment on above: Performed By: #### 2 573080, 3223477, 75073931, 29252335, 7489833, 7136902, 6108552 ####[address] [place] [address] Globulin (S) [Mass/Vol] 3.1 g/dL Normal 1.4-4.0 [facility] Comment on above: Performed By: #### 2 376339, 7705218, 97358033, 33276922, 9703368, 7674081, 9731007 ####[facility] [address] [place] [address] Protein [Mass/Vol] 6.9 g/dL Normal 6.0-7.8 [facility] Comment on above: Performed By: #### 2 098285, 9183216, 19318669, 91835539, 7947216, 0866090, 1727169 ####[facility] [address] [place] [address] Bilirubin.direct [Mass/Vol] mg/dL Normal 0.1-0.4 [facility] Comment on above: Performed By: #### 2 685486, 9546549, 98422303, 04957149, 2692892, 3375953, 9645627 ####[facility] [address] [place] [address] Lipase Levelon 05-21-2023 Lipase [Catalytic activity/Vol] 31 U/L Normal 13-58 [facility] Comment on above: Performed By: #### 2 972474, 5087117, 00131279, 77619828, 8567875, 2767594, 6212865 ####[facility] [address] [place] [address] Troponin 0 Hr.on 05-21-2023 Troponin I.cardiac [Mass/Vol] 2.50 pg/mL Low 10.10-27.10 [facility] Comment on above: Result Comment: The 95% CI (Confidence Interval) PPV (Positive Predictive Value) for myocardial infarction in females is 38 pg/mL, in males 51 pg/mL. The results should be used in conjunction with clinical conditions of myocardial infarction.(Access High Sensitivity Troponin I Instructions For Use, [employer], May 2018) Performed By: #### 2 645675, 3271473, 45259427, 56215454, 5105294, 2978622, 4276263 ####[facility] [address] [place] [address] URINALYSISOrdered By: Jose Miguel nelson on 05-21-2023 [...] Interpretation Code Negative [facility] UA Auto SS Ronald.plasma/Ronald .RBC (Bld) [Mass ratio] 4-20 /HPF Normal [...] FT [facility] Auto SS Urobilinogen Qn (U) 0.6905729 {Rola'U}/dL Normal 0.0 - 1.0 EU/dL [facility] UA Auto SS WBC Auto Ql (U) Negative (05/21/23 10:17 PM) Normal Negative [facility] UA Auto SS WBC LM.HPF (Urine sed) [#/Area] 0-5 /HPF Normal 0-5/HPF [facility] UA Auto SS eGFRon 05-21-2023 GFR/1.73 sq M.predicted among non-blacks MDRD (S/P/Bld) [Vol rate/Area] 120 mL/min/1.73 m2 Normal >=59 [facility] Comment on above: Order Comment: Order added by Discern Expert. Result Comment: Avionics Installer lucy kidney disease could be indicated at eGFR's of less than 60 mL/min/1.73m2. Kidney failure is indicated at less than 15 mL/min/1.73m2. Performed By: #### 2 378124, 1448875, 33545642, 03219798, 6498628, 2009569, 4083565 ####[facility] [address] [place] [address] PAP [id number] 05-03-2023 C. trachomatis rRNA MAHAD+probe Ql (Cvx) Negative Invalid Interpretation Code Negative [facility] Comment on above: Performed By: #### 3 634452098 ####[facility] [address] [place] [address] Cytology report Cyto stain Doc (Cvx/Vag) Note Invalid Interpretation Code [facility] Comment on above: Result Comment: TEST S RESULT FLAG UNITS REF RANGE LAB Clinician Provided Cytology InformationSource.............EndocervixNo. of containers..01 ThinPrep VialDIAGNOSIS: 01NEGATIVE FOR INTRAEPITHELIAL LESION OR MALIGNANCY.Specimen adequacy: 01Satisfactory for evaluation. Endocervical and/or squamous metaplasticcells (endocervical component) are present.Performed by: Eliana Shea Teacher Education Director (ASCP). 01Note: Note 01The Pap smear is [...] High<-Panic Low,>-Panic High,A-Abnormal,AA-Critical Abnormal -----Performed at:[address] [place] [address]Gmsayy French Walton MD, Performed By: #### 3 [id number] ####[facility] [address] [place] [address] N. gonorrhoeae rRNA MAHAD+probe Ql (Cvx) Negative Invalid Interpretation Code Negative [facility] Comment on above: Result Comment: Perf ormed at: [facility] [address] [id number] MD Anton HinsonPerformed at: =G [facility] [address] [id number] MD Anton Hinson Performed By: #### 3 [id number] ####[facility] [address] [place] [address] C Urineon 05-02-2023 Bacteria identified Cx Nom (U) Normal [facility] Comment on above: Performed By: #### 2 405365 ####[facility] [address] [place] [address] HIV Screen 4th Generation wR fxon 05-01-2023 HIV 1+2 Ab+HIV1 p24 Ag IA Ql Non-Reactive Invalid Interpretation Code Non Reactive [facility] Comment on above: Result Comment: HIV NegativeHIV-1/HIV-2 antibodies and HIV-1 p24 antigen were NOT detected.There is no laboratory evidence of HIV infection.Performed at: [facility] [place], [place] [id number] PhD [place] Performed By: #### 1 09956482, 17807825, 138649795, 3857719, 4342796 ####[facility] [address] [place] [address] Hep Bs Agon 05-01-2023 HBV surface Ag IA Ql Negative Invalid Interpretation Code Negative [facility] Comment on above: Result Comment: Perf ormed at: [address] [id number] PhD [facility] [place] Performed By: #### 1 32733208, 37443561, 274871927, 1638824, 6710638 ####[address] [place] [address] RPR with Conf Rfxon 05-01-20 23 Reagin Ab RPR Ql (S) Non-Reactive Invalid Interpretation Code Non Reactive [facility] Comment on above: Result Comment: Perf ormed at: [address] [id number] PhD [facility] [place] Performed By: #### 1 31430934, 53809409, 513725508, 5316763, 9420084 ####[address] [address] Rubella IgGon 05-01-2023 Rubella virus IgG Qn (S) [IU]/mL Low Immune >0.99 [facility] Comment on above: Result Comment: Non- immune <0.90Equivocal 0.90 - 0.99Immune >0.99Performed at: [address] [id number] PhD [facility] [place] Performed By: #### 1 34368991, 26909183, 792003905, 6449127, 1697835 ####[address] [place] [address] ABO/Rhon 04-30-2023 ABO/Rh Positive Invalid Interpretation Code [facility] Comment on above: Performed By: #### 2 693652, 07685769 ####[facility] [address] [place] [address] ABSCon 04-30-2023 ABSC Gel Interp Negative Normal [facility] Comment on above: Performed By: #### 2 186972, 09031771 ####[facility] [address] [place] [address] BLOOD BANKOrdered By: Diamond Junior on 04-30-2023 ABO/Rh Interp Positive Invalid Interpretation Code [facility] BB Subsection ABSC Gel Interp Negative (04/30/23 9:30 AM) Normal [facility] BB Subsection BhCG Quanton 04-30-2023 [place] [address] m[IU]/mL High 1-3 [facility] Comment on above: Result Comment: GEST ATIONAL AGE HCG RANGE (mIU/mL) NON- <1-3 0.2-1 WEEKS 5-50 1-2 WEEKS 50-500 2-3 WEEKS 100-5,000 3-4 WEEKS 500-10,000 4-5 WEEKS 1,000-50,000 5-6 WEEKS 10,000-100,000 6-8 WEEKS 15,000-200,000 8-12 WEEKS 10,000-100,000 Performed By: #### 2 495642 ####[facility] [address] [place] [address] CBC w/Indiceson 04-30-2023 Erythrocyte distribution width (RBC) [Ratio] 13.7 % Normal 10.9-14.2 [facility] Comment on above: Performed By: #### 1 54905107, 27312418, 082889699, 1816973, 1354623 ####[facility] [address] [place] [address] Hematocrit (Bld) [Volume fraction] 40.7 % Normal 34.0-46.0 [facility] Comment on above: Performed By: #### 1 20344209, 24489760, 232266093, 9780469, 6616381 ####[facility] [address] [place] [address] Hemoglobin (Bld) [Mass/Vol] 13.8 g/dL Normal 12.0-16.0 [facility] Comment on above: Performed By: #### 1 36750813, 11793784, 409133602, 8230307, 0168371 ####[facility] [address] [place] [address] MCH (RBC) [Entitic mass] 30.5 pg Normal 27.0-34.0 [facility] Comment on above: Performed By: #### 1 91214486, 15215249, 951511104, 8706265, 1779151 ####[address] [place] [address] MCHC (RBC) [Mass/Vol] 33.9 g/dL Normal 31.4-36.0 [facility] Comment on above: Performed By: #### 1 08847740, 81344439, 809340102, 9722820, 2795080 ####[place] [address] MCV (RBC) [Entitic vol] 89.9 fL Normal 80.0-100.0 [facility] Comment on above: Performed By: #### 1 [id number], 69770453, 823947039, 5826746, 3765807 ####[place] 2136857 Platelet mean volume (Bld) [Entitic vol] 8.2 fL Normal 6.4-10.8 [facility] Comment on above: Performed By: #### 1 41025666, 81380268, 166462708, 5832874, 1409221 ####[place] 2136857 Platelets (Bld) [#/Vol] 279.0 E9/L Normal 150.0-500.0 [facility] Comment on above: Performed By: #### 1 95102949, 83059428, 297082143, 1058819, 2441563 ####[place] 2136857 RBC (Bld) [#/Vol] 4.5 E12/L Normal 4.3-5.9 [facility] Comment on above: Performed By: #### 1 59528236, 98035687, 045079667, 8421422, 7929044 ####[facility] [address] [place] [address] WBC corrected for nucl RBC Auto (Bld) [#/Vol] 5.8 E9/L Normal 4.0-11.0 [facility] Comment on above: Performed By: #### 1 27526445, 36482149, 470910765, 2787784, 4643205 ####[facility] [address] [place] [address] CHEMISTRYOrdered By: SYSTEM SYSTEM on 04-30-2023 [place] [address] m[IU]/mL High 1 - 3 mIU/mL [facility] Remisol Consent for Treatmenton 04-14 Consent for Treatment [id number]#1.00CD:12 7 Normal [facility] HEMATOLOGYOrdered By: Temi Romero on 04-30-2023 [...] 279.0 E9/L Normal 150.0 - 500.0 E9/L [facility] HemeAutoSS RBC (Bld) [#/Vol] 4.5 E12/L Normal 4.3 - 5.9 E12/L [facility] HemeAutoSS WBC corrected for nucl RBC Auto (Bld) [#/Vol] 5.8 E9/L Normal 4.0 - 11.0 E9/L [facility] HemeAutoSS PAP [id number] 04-30-2023 Collection Technique BRUSH-SPATULA Normal [facility] Comment on above: Performed By: #### 3 [id number] ####[facility] [address] [place] [address] Gynecological Body Site ENDOCERVIX Normal [facility] Comment on above: Performed By: #### 3 [id number] ####[facility] [address] [place] [address] Physician Orderon 04-30-2023 Physician Order [id number]#1.00CD:1 27 Normal [facility] Physician Order [id number]#1.00CD:1 27 Normal [facility] BhCG Quanton 04-26-2023 [place] [address] m[IU]/mL High 1-3 [facility] Comment on above: Result Comment: GEST ATIONAL AGE HCG RANGE (mIU/mL) NON- <1-3 0.2-1 WEEKS 5-50 1-2 WEEKS 50-500 2-3 WEEKS 100-5,000 3-4 WEEKS 500-10,000 4-5 WEEKS 1,000-50,000 5-6 WEEKS 10,000-100,000 6-8 WEEKS 15,000-200,000 8-12 WEEKS 10,000-100,000 Performed By: #### 2 150339 ####[facility] [address] [place] [address] CHEMISTRYOrdered By: SYSTEM SYSTEM on 04-26-2023 [place] [address] m[IU]/mL High 1 - 3 mIU/mL [facility] Remisol Consent for Treatmenton 04-14 Consent for Treatment [id number]#1.00CD:12 7 Normal [facility] Discharge Instructionson Discharge Instructions [id number]#1.00CD:1 27 Normal [facility] ED Clinical Summaryon 2022 ED Clinical Summary Normal [place] [facility] ED Note-Physicianon 04-26-20 ED Note-Physician Normal [facility] Comment on above: Result Comment: Elec tronically Signed By: Jos Ugalde PA-C\.br\Date and Time Signed: 04/26/23 10:59 EDT\.br\Electronically Co-Signed By: Laura Noel M.D.\.br\Date and Time Co-Signed: 04/26/23 11:01 EDT ED Patient Education Noteon 04-26-2023 ED Patient Education Note Normal [facility] ED Patient Summaryon 023 ED Patient Summary Normal [facility] UA With Cult Reflexon 2022 Bilirubin Ql (U) Negative Normal Negative [facility] Comment on above: Performed By: #### 1 [id number] ####[facility] [address] [place] [address] Clarity (U) CLEAR Normal Clear [facility] Comment on above: Performed By: #### 1 5783993 ####[facility] [address] [place] [address] Color (U) YELLOW Normal Yellow [facility] Comment on above: Performed By: #### 1 2317093 ####[facility] [address] [place] [address] Crystals LM Ql (Urine sed) Present Normal [facility] Comment on above: Performed By: #### 1 5439236 ####[facility] [address] [place] [address] Epithelial cells.squamous LM.HPF (Urine sed) [#/Area] 0-2 Normal 0-2 [facility] Comment on above: Performed By: #### 1 4657622 ####[facility] [address] [place] [address] Glucose Test strip (U) [Mass/Vol] Negative Normal Negative [facility] Comment on above: Performed By: #### 1 8131689 ####[facility] [address] [place] [address] Hemoglobin Ql (U) Negative Normal Negative [facility] Comment on above: Performed By: #### 1 4916946 ####[facility] [address] [place] [address] Ketones (U) [Mass/Vol] Negative Normal Negative [facility] Comment on above: Performed By: #### 1 1662346 ####[address] [address] Ronald.plasma/Ronald .RBC (Bld) [Mass ratio] 0-3 Normal 0-3 [facility] Comment on above: Performed By: #### 1 2804465 ####[facility] [address] [place] [address] Mucus Ql (Urine sed) 2+ Normal [facility] Comment on above: Performed By: #### 1 7692793 ####[address] [address] Nitrite Ql (U) Negative Normal Negative [facility] Comment on above: Performed By: #### 1 0676052 ####[facility] [address] [place] [address] pH (U) 8.5 [pH] Invalid Interpretation Code 5.0-9.0 [facility] Comment on above: Performed By: #### 1 9364389 ####[address] [address] Protein (U) [Mass/Vol] Negative Normal Negative [facility] Comment on above: Performed By: #### 1 5405683 ####[address] [address] Specific gravity (U) [Rel density] 1.015 Invalid Interpretation Code 1.005-1.030 [facility] Comment on above: Performed By: #### 1 5761185 ####[facility] [address] [place] [address] Type of Urine collection method Clean Catch Normal [facility] Comment on above: Performed By: #### 1 0641691 ####[facility] [address] [place] [address] Urobilinogen Qn (U) 1.0 {Rola'U}/dL Normal 0.0-1.0 [facility] Comment on above: Performed By: #### 1 3923504 ####[facility] [address] [place] [address] WBC Auto Ql (U) Negative Normal Negative [facility] Comment on above: Performed By: #### 1 5135772 ####[place] [address] WBC LM.HPF (Urine sed) [#/Area] 0-5 Normal 0-5 [facility] Comment on above: Performed By: #### 1 2816238 ####[place] [address] URINALYSISOrdered By: An Lassiter on 04-26-2023 Bilirubin Ql (U) Negative (04/26/23 9:15 AM) Normal Negative [facility] UA Auto SS Clarity (U) Clear (04/26/23 9:15 AM) Normal Clear [facility] UA Auto SS Color (U) Yellow (04/26/23 9:15 AM) Normal Yellow [facility] UA Auto SS Crystals LM Ql (Urine sed) Present (04/26/23 9:15 AM) Normal [facility] UA Auto SS Epithelial cells.squamous LM.HPF (Urine sed) [#/Area] 0-2 /HPF Normal 0-2/HPF [facility] UA Auto SS Glucose Test strip (U) [Mass/Vol] Negative (04/26/23 9:15 AM) Normal Negative [facility] UA Auto SS Hemoglobin Ql (U) Negative (04/26/23 9:15 AM) Normal Negative [facility] UA Auto SS Ketones (U) [Mass/Vol] Negative (04/26/23 9:15 AM) Normal Negative FT UA Auto SS Ronald.plasma/Ronald .RBC (Bld) [Mass ratio] 0-3 /HPF Normal [...] Desc Clean Catch (04/26/23 9:15 AM) Normal [facility] UA Auto SS Urobilinogen Qn (U) 1.8495164 {Rola'U}/dL Normal 0.0 - 1.0 EU/dL [facility] UA Auto SS WBC Auto Ql (U) Negative (04/26/23 9:15 AM) Normal Negative [facility] UA Auto SS WBC LM.HPF (Urine sed) [#/Area] 0-5 /HPF Normal 0-5/HPF [facility] UA Auto SS US 1st Trimesteron 04-26-2023 US 1st Trimester Normal [facility] US Transvaginalon 04-26-2023 Transvaginal Normal [facility] Coding Summary.on 02-02-2023 Coding Summary. Normal [facility] Auto Diffon 01-31-2023 Basophils/100 WBC (Bld) 0.3 % Normal 0.0-2.0 [facility] Comment on above: Order Comment: Order Added by Discern Expert. Performed By: #### 2 627914, 0066821, 19471335, 6360130 ####[place] [address] [facility] [place] [address] Basophils/Leukocytes Auto (Bld) [Pure # fraction] 0.0 E9/L Normal 0.0-0.2 [facility] Comment on above: Order Comment: Order Added by Discern Expert. Performed By: #### 2 393311, 2512989, 60463813, 2551902 ####[address] [address] Eosinophils/100 WBC (Bld) 2.8 % Normal 0.0-8.0 [facility] Comment on above: Order Comment: Order Added by Discern Expert. Performed By: #### 2 444856, 5229201, 53349915, 6808949 ####[address] [address] Eosinophils/Leukocytes Auto (Bld) [Pure # fraction] 0.1 E9/L Normal 0.0-0.5 [facility] Comment on above: Order Comment: Order Added by Gisselle Expert. Performed By: #### 2 424319, 4272295, 08857745, 0964444 ####[address] [address] Lymphocytes/100 WBC (Bld) 30.0 % Normal 14.0-50.0 [facility] Comment on above: Order Comment: Order Added by Gisselle Expert. Performed By: #### 2 283158, 9989678, 01689904, 5294558 ####[address] [address] Lymphocytes/Leukocytes Auto (Bld) [Pure # fraction] 1.5 E9/L Normal 1.0-4.0 [facility] Comment on above: Order Comment: Order Added by Discern Expert. Performed By: #### 2 045921, 6074920, 20912658, 6903321 ####[address] [address] Monocytes/100 WBC (Bld) 7.0 % Normal 4.0-14.0 [facility] Comment on above: Order Comment: Order Added by Gisselle Expert. Performed By: #### 2 512301, 9094950, 44377043, 5455443 ####[address] [place] [address] Monocytes/Leukocytes Auto (Bld) [Pure # fraction] 0.4 E9/L Normal 0.2-1.0 [facility] Comment on above: Order Comment: Order Added by Discern Expert. Performed By: #### 2 019292, 5607615, 00700839, 9269971 ####[address] [address] Neutrophils/100 WBC (Bld) 59.9 % Normal 36.0-75.0 [facility] Comment on above: Order Comment: Order Added by Discern Expert. Performed By: #### 2 436289, 4515279, 88979374, 1343895 ####[address] [address] Neutrophils/Leukocytes Auto (Bld) [Pure # fraction] 3.1 E9/L Normal 2.0-7.5 [facility] Comment on above: Order Comment: Order Added by Discern Expert. Performed By: #### 2 941355, 2082550, 38302540, 3866072 ####[address] [address] B hCG Qualon 01-31-2023 Beta hCG Ql Negative Normal [facility] Comment on above: Performed By: #### 2 8273931, 18013656 ####[address] [address] BMPon 01-31-2023 Creatinine [Mass/Vol] 0.8 mg/dL Normal 0.5-1.3 [facility] Comment on above: Performed By: #### 2 876413, 9911347, 48418430, 6877652 ####[address] [address] Urea nitrogen [Mass/Vol] 9 mg/dL Normal 5-21 [facility] Comment on above: Performed By: #### 2 681761, 1839784, 53046329, 4533476 ####[facility] [address] [place] [address] Urea nitrogen/Creatinine [Mass ratio] 11 No Units Normal 10-20 [facility] Comment on above: Performed By: #### 2 645554, 8963157, 45292414, 5233151 ####[facility] [address] [place] [address] Anion gap [Moles/Vol] 12 mmol/L Normal 6-16 [facility] Comment on above: Performed By: #### 2 224377, 0656943, 14267414, 9212374 ####[facility] [address] [place] [address] Calcium [Mass/Vol] 9.1 mg/dL Normal 8.9-11.1 [facility] Comment on above: Performed By: #### 2 016970, 5211535, 59641498, 0981469 ####[facility] [address] [place] [address] Chloride [Moles/Vol] 104 mmol/L Normal 101-111 [facility] Comment on above: Performed By: #### 2 324755, 8744877, 42179183, 8956372 ####[facility] [address] [place] [address] CO2 [Moles/Vol] 23 mmol/L Normal 21-31 [facility] Comment on above: Performed By: #### 2 307320, 2310356, 19590283, 4387875 ####[facility] [address] [place] [address] Glucose [Mass/Vol] 84 mg/dL Normal 55-199 [facility] Comment on above: Result Comment: If t his glucose result represents a fasting glucose, interpretation should refer to the following reference range: 55-99 mg/dL Performed By: #### 2 432804, 6570800, 50583277, 2044767 ####[facility] [address] [place] [address] Potassium [Moles/Vol] 3.5 mmol/L Normal 3.5-5.3 [facility] Comment on above: Performed By: #### 2 463803, 4206196, 51603679, 6262892 ####[place] [address] [place] [address] Sodium [Moles/Vol] 135 mmol/L Normal 135-145 [facility] Comment on above: Performed By: #### 2 060321, 8080489, 96271719, 0189540 ####[address] [address] CBC w/ Auto Diffon 3 Erythrocyte distribution width (RBC) [Ratio] 12.9 % Normal 10.9-14.2 [facility] Comment on above: Performed By: #### 2 083096, 5392811, 96651814, 1696010 ####[address] [address] Hematocrit (Bld) [Volume fraction] 46.4 % High 34.0-46.0 [facility] Comment on above: Performed By: #### 2 485001, 6745600, 37502521, 5608346 ####[address] [address] Hemoglobin (Bld) [Mass/Vol] 15.0 g/dL Normal 12.0-16.0 [facility] Comment on above: Performed By: #### 2 180934, 3170504, 36958057, 6722672 ####[address] [address] MCH (RBC) [Entitic mass] 28.6 pg Normal 27.0-34.0 [facility] Comment on above: Performed By: #### 2 629810, 1630803, 99356143, 8371129 ####[address] [address] MCHC (RBC) [Mass/Vol] 32.3 g/dL Normal 31.4-36.0 [facility] Comment on above: Performed By: #### 2 157669, 9859991, 65304951, 3270384 ####[place] [address] [place] [address] MCV (RBC) [Entitic vol] 88.5 fL Normal 80.0-100.0 [facility] Comment on above: Performed By: #### 2 828169, 7381254, 68090831, 0400382 ####[facility] [address] [place] [address] Platelet mean volume (Bld) [Entitic vol] 7.9 fL Normal 6.4-10.8 [facility] Comment on above: Performed By: #### 2 562424, 4952364, 65265058, 0742547 ####[address] [address] Platelets (Bld) [#/Vol] 300.0 E9/L Normal 150.0-500.0 [facility] Comment on above: Performed By: #### 2 596271, 4168010, 49287868, 1233285 ####[address] [address] RBC (Bld) [#/Vol] 5.2 E12/L Normal 4.3-5.9 [facility] Comment on above: Performed By: #### 2 133777, 5293399, 11196803, 1325530 ####[address] [address] WBC corrected for nucl RBC Auto (Bld) [#/Vol] 5.1 E9/L Normal 4.0-11.0 [facility] Comment on above: Performed By: #### 2 396191, 7448846, 65797260, 0864342 ####[address] [address] CHEMISTRYOrdered By: SYSTEM SYSTEM on 01-31-2023 Anion [...] rate/Area] mL/min/1.73 m2 Normal >=59mL/min/ 1.73 m2 [facility] Chem S Glucose [Mass/Vol] 84 mg/dL Normal [...] Coag CTA Headon 01-31-2023 CTA Head Normal [facility] Consent for Treatmenton 01-13 Consent for Treatment [id number]#1.00CD:12 7 [facility] Discharge Instructionson Discharge Instructions [id number]#1.00CD:1 27 [facility] ED Clinical Summaryon 2022 ED Clinical Summary Normal V[facility] on[facility] ED Note-Physicianon 02-01-20 ED Note-Physician Normal [facility] Comment on above: Result Comment: Elec tronically Signed By: Kristian Guillermo DO.medina\Date and Time Signed: 01/31/23 14:00 EDT ED Patient Education Noteon 01-31-2023 ED Patient Education Note Normal [facility] ED Patient Summaryon 023 ED Patient Summary Normal [facility] HEMATOLOGYOrdered By: SYSTEM SYSTEM on 01-31-2023 [...] Coag (PPP) [Time] 31.3 second(s) Normal 25.1-36.5 [facility] Comment on above: Result Comment: Para [...] the same coagulation reagent and instrumentation as [facility]. Currently there are no coagulation studies available worldwide for children to 14 days, and no normal ranges. Heparin therapeutic range (represented by Anti-Factor Xa activity of 0.2 - 0.4 U/mL) corresponds to PTT of 56.6 - 109.0 sec. Performed By: #### 2 2853305, 30189946 ####[facility] [address] [place] [address] INR Coag (PPP) [Relative time] 1.1 {INR} Invalid Interpretation Code [facility] Comment on above: Result Comment: INR results are specifically intended to assess patients stabilized on long-term Anticoagulation therapy suggested INR?s ?Less Intensive Anticoagulation? 2.0 ? 3.0Conventional Range 3.0 ? 4.5 Performed By: #### 2 7350314, 94808427 ####[facility] [address] [place] [address] PT Coag (PPP) [Time] 12.3 second(s) Normal 9.4-12.5 [facility] Comment on above: Result Comment: 15 [...] the same coagulation reagent and instrumentation as [facility]. Currently there are no coagulation studies available worldwide for children to 14 days, and no normal ranges. Performed By: #### 2 9585247, 20707682 ####[facility] [address] [place] [address] Pre-Arrival Noteon 3 Pre-Arrival Note Normal [facility] SEROLOGYOrdered By: Nova Mccarty on 01-31-2023 Beta hCG Ql Negative (01/31/23 10:14 AM) Normal [facility] Man Sero eGFRon 01-31-2023 GFR/1.73 sq M.predicted among blacks MDRD (S/P/Bld) [Vol rate/Area] mL/min/{1.73_m2} Normal >=59 [facility] Comment on above: Order Comment: Order added by Discern Expert. Result Comment: eGFR is race adjusted. AA=. Performed By: #### 2 464455, 4345973, 27906478, 2688329 ####[facility] [address] [place] [address] GFR/1.73 sq M.predicted among non-blacks MDRD (S/P/Bld) [Vol rate/Area] mL/min/{1.73_m2} Normal >=59 [facility] Comment on above: Order Comment: Order added by Discern Expert. Result Comment: Avionics Installer lucy kidney disease could be indicated at eGFR's of less than 60 mL/min/1.73m2. Kidney failure is indicated at less than 15 mL/min/1.73m2. Performed By: #### 2 922833, 5591010, 86798732, 7561833 ####[facility] [address] [place] [address] Nursing Assessmenton 023 Nursing Assessment [id number]#1.00CD:1 27 Normal [facility] Coding Summary.on 10-02-2022 Coding Summary. Normal [facility] Coding Summary. Normal [facility] Delivery Summaryon Delivery Summary Normal [facility] Comment on above: Result Comment: Elec tronically Signed By: Fabiana MARION, Luis Carlos Byrd\.medina\Date and Time Signed: 09/29/22 09:25 EST General Message Officeon General Message Office Normal [facility] Insurance Correspondence Off iceon 09-28-2022 Insurance Correspondence Office [id number]#1.00CD:1 27 Normal [facility] Discharge Instructionson Discharge Instructions [id number]#1.00CD:12 7 Normal [facility] Inpatient Clinical Summaryon 09-27-2022 Inpatient Clinical Summary Normal [facility] Inpatient Patient Summaryon 09-27-2022 Inpatient Patient Summary Normal [facility] CBC w/Indiceson 09-26-2022 Erythrocyte distribution width (RBC) [Ratio] 13.1 % Normal 10.9-14.2 [facility] Comment on above: Performed By: #### 2 422291 ####[facility] [address] [place] [address] Hematocrit (Bld) [Volume fraction] 32.1 % Low 34.0-46.0 [facility] Comment on above: Performed By: #### 2 169430 ####[address] [address] Hemoglobin (Bld) [Mass/Vol] 11.1 g/dL Low 12.0-16.0 [facility] Comment on above: Performed By: #### 2 660391 ####[facility] [address] [place] [address] MCH (RBC) [Entitic mass] 30.9 pg Normal 27.0-34.0 [facility] Comment on above: Performed By: #### 2 817150 ####[facility] [address] [place] [address] MCHC (RBC) [Mass/Vol] 34.5 g/dL Normal 31.4-36.0 [facility] Comment on above: Performed By: #### 2 680699 ####[facility] [address] [place] [address] MCV (RBC) [Entitic vol] 89.7 fL Normal 80.0-100.0 [facility] Comment on above: Performed By: #### 2 182246 ####[facility] [address] [place] [address] Platelet mean volume (Bld) [Entitic vol] 10.1 fL Normal 6.4-10.8 [facility] Comment on above: Performed By: #### 2 821910 ####[facility] [address] [place] [address] Platelets (Bld) [#/Vol] 204.0 E9/L Normal 150.0-500.0 [facility] Comment on above: Performed By: #### 2 944823 ####[facility] [address] [place] [address] RBC (Bld) [#/Vol] 3.6 E12/L Low 4.3-5.9 [facility] Comment on above: Performed By: #### 2 335679 ####[facility] [address] [place] [address] WBC corrected for nucl RBC Auto (Bld) [#/Vol] 23.2 E9/L High 4.0-11.0 [facility] Comment on above: Performed By: #### 2 144915 ####[facility] [address] [place] [address] Nursing Assessmenton 022 Nursing Assessment [id number]#1.00CD:12 7 [facility] Progress Note-Physicianon Progress Note-Physician [facility] Comment on above: Result Comment: Elec tronically Signed By: Fabiana MARION, Luis Carlos Byrd\.br\Date and Time Signed: 09/26/22 08:19 EST Coding Summary.on 09-25-2022 Coding Summary. [facility] Coding Summary. [facility] Consenton 09-25-2022 Consent [id number]#1.00CD:1 27 [facility] Consent for Anesthesiaon Consent for Anesthesia [id number]#1.00CD:12 7 [facility] Discharge Instructionson Discharge Instructions [id number]#1.00CD:1 27 [facility] Help Me Grow Referralon 09-14 Help Me Grow Referral [id number]#1.00CD:12 7 Normal [facility] Recordson Records [id number]#1.00CD:12 7 Normal [facility] Progress Note-Physicianon Progress Note-Physician Normal [facility] Comment on above: Result Comment: Elec tronically Signed By: Jimmy Corcoran Jr., DO\.br\Date and Time Signed: 09/25/22 08:31 EST Progress Note-Physician Normal [facility] Comment on above: Result Comment: Elec tronically Signed By: Jimmy Corcoran Jr., DO\.br\Date and Time Signed: 09/25/22 08:31 EST UA With Cult Reflexon 2021 Bilirubin Ql (U) Negative Normal Negative [facility] Comment on above: Order Comment: Urina ry Catheter Insertion triggered Urinalysis With Culture Reflex order by discern. Performed By: #### 1 0185908 ####[facility] [address] [place] [address] Clarity (U) CLEAR Normal Clear [facility] Comment on above: Order Comment: Urina ry Catheter Insertion triggered Urinalysis With Culture Reflex order by discern. Performed By: #### 1 1368974 ####[facility] [address] [place] [address] Color (U) YELLOW Normal Yellow [facility] Comment on above: Order Comment: Urina ry Catheter Insertion triggered Urinalysis With Culture Reflex order by discern. Performed By: #### 1 9218339 ####[facility] [address] [place] [address] Epithelial cells.squamous LM.HPF (Urine sed) [#/Area] 0-2 Normal 0-2 [facility] Comment on above: Order Comment: Urina ry Catheter Insertion triggered Urinalysis With Culture Reflex order by discern. Performed By: #### 1 2866468 ####[facility] [address] [place] [address] Glucose Test strip (U) [Mass/Vol] Negative Normal Negative [facility] Comment on above: Order Comment: Urina ry Catheter Insertion triggered Urinalysis With Culture Reflex order by discern. Performed By: #### 1 9897200 ####[place] [address] [place] [address] Hemoglobin Ql (U) Negative Normal Negative [facility] Comment on above: Order Comment: Urina ry Catheter Insertion triggered Urinalysis With Culture Reflex order by discern. Performed By: #### 1 7174253 ####[address] [address] Ketones (U) [Mass/Vol] Negative Normal Negative [facility] [facility] Comment on above: Order Comment: Urina ry Catheter Insertion triggered Urinalysis With Culture Reflex order by discern. Performed By: #### 1 [id number] ####[address] [address] Ronald.plasma/Ronald .RBC (Bld) [Mass ratio] 0-3 Normal 0-3 [facility] Comment on above: Order Comment: Urina ry Catheter Insertion triggered Urinalysis With Culture Reflex order by discern. Performed By: #### 1 [id number] ####[address] [address] Nitrite Ql (U) Negative Normal Negative [facility] Comment on above: Order Comment: Urina ry Catheter Insertion triggered Urinalysis With Culture Reflex order by discern. Performed By: #### 1 6331149 ####[address] [address] pH (U) 7.0 [pH] Invalid Interpretation Code 5.0-9.0 [facility] Comment on above: Order Comment: Urina ry Catheter Insertion triggered Urinalysis With Culture Reflex order by discern. Performed By: #### 1 1744300 ####[address] [address] Protein (U) [Mass/Vol] Negative Normal Negative [facility] Comment on above: Order Comment: Urina ry Catheter Insertion triggered Urinalysis With Culture Reflex order by discern. Performed By: #### 1 [id number] ####[place] [address] Specific gravity (U) [Rel density] <=1.005 Invalid Interpretation Code 1.005-1.030 [facility] Comment on above: Order Comment: Urina ry Catheter Insertion triggered Urinalysis With Culture Reflex order by discern. Performed By: #### 1 2512847 ####[address] [address] Type of Urine collection method Vyas Normal [facility] Comment on above: Order Comment: Urina ry Catheter Insertion triggered Urinalysis With Culture Reflex order by discern. Performed By: #### 1 [id number] ####[place] [address] Urobilinogen Qn (U) 0.2 {Rola'U}/dL Normal 0.0-1.0 [facility] Comment on above: Order Comment: Urina ry Catheter Insertion triggered Urinalysis With Culture Reflex order by discern. Performed By: #### 1 4087746 ####[place] 2136857 WBC Auto Ql (U) Negative Normal Negative [facility] Comment on above: Order Comment: Urina ry Catheter Insertion triggered Urinalysis With Culture Reflex order by discern. Performed By: #### 1 0965901 ####[address] [address] WBC LM.HPF (Urine sed) [#/Area] 0-5 Normal 0-5 [facility] Comment on above: Order Comment: Urina ry Catheter Insertion triggered Urinalysis With Culture Reflex order by discern. Performed By: #### 1 8580807 ####[address] [address] Bilirubin Ql (U) Negative Normal Negative [facility] Comment on above: Performed By: #### 1 5908617 ####[address] [address] Clarity (U) CLEAR Normal Clear [facility] Comment on above: Performed By: #### 1 1913185 ####[place] [address] [address] Color (U) YELLOW Normal Yellow [facility] Comment on above: Performed By: #### 1 4852954 ####[address] [address] Epithelial cells.squamous LM.HPF (Urine sed) [#/Area] 0-2 Normal 0-2 [facility] Comment on above: Performed By: #### 1 8663022 ####[address] [address] Glucose Test strip (U) [Mass/Vol] Negative Normal Negative [facility] Comment on above: Performed By: #### 1 2653867 ####[address] [address] Hemoglobin Ql (U) Negative Normal Negative [facility] Comment on above: Performed By: #### 1 3773379 ####[address] [address] Ketones (U) [Mass/Vol] Negative Normal Negative [facility] Comment on above: Performed By: #### 1 7000224 ####[address] [address] Ronald.plasma/Ronald .RBC (Bld) [Mass ratio] 0-3 Normal 0-3 [facility] Comment on above: Performed By: #### 1 1582972 ####[address] [address] Nitrite Ql (U) Negative Normal Negative [facility] Comment on above: Performed By: #### 1 2385991 ####[address] [address] pH (U) 6.0 [pH] Invalid Interpretation Code 5.0-9.0 [facility] Comment on above: Performed By: #### 1 1004020 ####[address] [address] Protein (U) [Mass/Vol] Negative Normal Negative [facility] Comment on above: Performed By: #### 1 2338124 ####[address] [address] Specific gravity (U) [Rel density] <=1.005 Invalid Interpretation Code 1.005-1.030 [facility] Comment on above: Performed By: #### 1 5070497 ####[address] [address] Type of Urine collection method Clean Catch Normal [facility] Comment on above: Performed By: #### 1 2197045 ####[address] [address] Urobilinogen Qn (U) 0.2 {Rola'U}/dL Normal 0.0-1.0 [facility] Comment on above: Performed By: #### 1 1799333 ####[address] [address] WBC Auto Ql (U) Negative Normal Negative [facility] Comment on above: Performed By: #### 1 5206181 ####[address] [address] WBC LM.HPF (Urine sed) [#/Area] 0-5 Normal 0-5 [facility] Comment on above: Performed By: #### 1 9088431 ####[address] [address] Vaccinationson 09-25-2022 Vaccinations [id number]#1.00CD:1 27 Normal [facility] Vaccinations [id number]#1.00CD:1 27 Normal [facility] ABO/Rhon 09-24-2022 ABO/Rh Positive Invalid Interpretation Code [facility] Comment on above: Performed By: #### 1 0000824, [id number], [id number], 8372709 ####[address] [address] ABO/Rh History Checkon 09-24 ABO/Rh History Check Verified Hx Blood Type Normal [facility] Comment on above: Performed By: #### 1 6835806, [id number], [id number], 6232850 ####[facility] [address] [place] [address] ABSCon 09-24-2022 ABSC Gel Interp Negative Normal [facility] Comment on above: Performed By: #### 1 9934883, [id number], 92575911, 0715552 ####[facility] [address] [place] [address] Blood Bank ID#on 09-24-2022 BBID# [id number] Invalid Interpretation Code [facility] Comment on above: Performed By: #### 1 3109116, 56498551, [id number], 7809657 ####[facility] [address] [place] [address] CBC w/Indiceson 09-24-2022 Erythrocyte distribution width (RBC) [Ratio] 13.0 % Normal 10.9-14.2 [facility] Comment on above: Performed By: #### 2 541078 ####[facility] [address] [place] [address] Hematocrit (Bld) [Volume fraction] 38.0 % Normal 34.0-46.0 [facility] Comment on above: Performed By: #### 2 193844 ####[facility] [address] [place] [address] Hemoglobin (Bld) [Mass/Vol] 12.8 g/dL Normal 12.0-16.0 [facility] Comment on above: Performed By: #### 2 820724 ####[facility] [address] [place] [address] MCH (RBC) [Entitic mass] 31.3 pg Normal 27.0-34.0 [facility] Comment on above: Performed By: #### 2 433139 ####[facility] [address] [place] [address] MCHC (RBC) [Mass/Vol] 33.7 g/dL Normal 31.4-36.0 [facility] Comment on above: Performed By: #### 2 751676 ####[address] [address] MCV (RBC) [Entitic vol] 92.9 fL Normal 80.0-100.0 [facility] Comment on above: Performed By: #### 2 374259 ####[address] [address] Platelet mean volume (Bld) [Entitic vol] 9.8 fL Normal 6.4-10.8 [facility] Comment on above: Performed By: #### 2 107739 ####[address] [address] Platelets (Bld) [#/Vol] 238.0 E9/L Normal 150.0-500.0 [facility] Comment on above: Performed By: #### 2 341157 ####[address] [address] RBC (Bld) [#/Vol] 4.1 E12/L Low 4.3-5.9 [facility] Comment on above: Performed By: #### 2 496978 ####[address] [address] WBC corrected for nucl RBC Auto (Bld) [#/Vol] 12.8 E9/L High 4.0-11.0 [facility] Comment on above: Performed By: #### 2 005418 ####[address] [address] Consent for Treatmenton 09-14 Consent for Treatment [id number]#1.00CD:12 7 Normal [facility] Consent for Treatment [id number]#1.00CD:1 27 Normal [facility] Consent for Treatmenton Consent for Treatment [id number]#1.00CD:12 7 [facility] Discharge Instructionson Discharge Instructions [id number]#1.00CD:12 7 [facility] Inpatient Clinical Summaryon 09-22-2022 Inpatient Clinical Summary Normal [facility] Inpatient Patient Summaryon 09-22-2022 Inpatient Patient Summary [facility] Insurance Correspondence Off ice09-22-2022 Insurance Correspondence Office [id number]#1.00CD: 127 [facility] Nursing Assessmenton 022 Nursing Assessment [id number]#1.00CD:1 27 [facility] Nursing Assessment [id number]#1.00CD:12 7 [facility] Discharge Instructionson Discharge Instructions [id number]#1.00CD:127 [facility] Inpatient Clinical Summaryon 09-20-2022 Inpatient Clinical Summary [facility] Inpatient Patient Summaryon 09-20-2022 Inpatient Patient Summary [facility] Insurance Correspondence Off ice09-20-2022 Insurance Correspondence Office [id number]#1.00CD:127 [facility] Consent for Treatmenton Consent for Treatment [id number]#1.00CD:12 7 [facility] Discharge Instructionson Discharge Instructions [id number]#1.00CD:1 27 [facility] Inpatient Clinical Summaryon 09-19-2022 Inpatient Clinical Summary [facility] Inpatient Patient Summaryon 09-19-2022 Inpatient Patient Summary [facility] Insurance Correspondenceon 11-20-2021 Insurance Correspondence [id number]#1.00CD:1 27 Normal [facility] UA With Cult Reflexon 2021 Bilirubin Ql (U) Negative Normal Negative [facility] Comment on above: Performed By: #### 1 [id number] ####[facility] [address] [place] [address] Clarity (U) CLEAR Normal Clear [facility] Comment on above: Performed By: #### 1 2029211 ####[facility] [address] [place] [address] Color (U) YELLOW Normal Yellow [facility] Comment on above: Performed By: #### 1 0301177 ####[address] [address] Epithelial cells.squamous LM.HPF (Urine sed) [#/Area] 0-2 Normal 0-2 [facility] Comment on above: Performed By: #### 1 2630023 ####[facility] [address] [place] [address] Glucose Test strip (U) [Mass/Vol] Negative Normal Negative [facility] Comment on above: Performed By: #### 1 0966279 ####[facility] [address] [place] [address] Hemoglobin Ql (U) Negative Normal Negative [facility] Comment on above: Performed By: #### 1 4856275 ####[facility] [address] [place] [address] Ketones (U) [Mass/Vol] Negative Normal Negative [facility] Comment on above: Performed By: #### 1 5245402 ####[address] [address] Ronald.plasma/Ronald .RBC (Bld) [Mass ratio] 0-3 Normal 0-3 [facility] Comment on above: Performed By: #### 1 3200511 ####[facility] [address] [place] [address] Nitrite Ql (U) Negative Normal Negative [facility] Comment on above: Performed By: #### 1 0882937 ####[facility] [address] [place] [address] pH (U) 7.0 [pH] Invalid Interpretation Code 5.0-9.0 [facility] Comment on above: Performed By: #### 1 3752839 ####[facility] [address] [place] [address] Protein (U) [Mass/Vol] Negative Normal Negative [facility] Comment on above: Performed By: #### 1 0802452 ####[facility] [address] [place] [address] Specific gravity (U) [Rel density] <=1.005 Invalid Interpretation Code 1.005-1.030 [facility] Comment on above: Performed By: #### 1 7293770 ####[address] [address] Type of Urine collection method Clean Catch Normal [facility] Comment on above: Performed By: #### 1 6405164 ####[facility] [address] [place] [address] Urobilinogen Qn (U) 0.2 {Rola'U}/dL Normal 0.0-1.0 [facility] Comment on above: Performed By: #### 1 9826616 ####[facility] [address] [place] [address] WBC Auto Ql (U) Negative Normal Negative [facility] Comment on above: Performed By: #### 1 5494759 ####[facility] [address] [place] [address] WBC LM.HPF (Urine sed) [#/Area] 0-5 Normal 0-5 [facility] Comment on above: Performed By: #### 1 2304471 ####[facility] [address] [place] [address] URINALYSISOrdered By: Jeanette Castle on 09-19-2022 Bilirubin [...] AM) Normal Negative [facility] UA Auto SS Ronald.plasma/Ronald .RBC (Bld) [Mass ratio] 0-3 /HPF Normal [...] FT UA Auto SS Urobilinogen Qn (U) 0.6130681 {Rola'U}/dL Normal 0.0 - 1.0 EU/dL FT UA Auto SS WBC Auto Ql (U) Negative (09/19/22 1:44 AM) Normal Negative [facility] UA Auto SS WBC LM.HPF (Urine sed) [#/Area] 0-5 /HPF Normal 0-5/HPF [facility] UA Auto SS Coding Summary.on 09-18-2022 Coding Summary. Normal [facility] Nursing Assessmenton 022 Nursing Assessment [id number]#1.00CD:12 7 Normal [facility] Coding Summary.on 09-15-2022 Coding Summary. Normal [facility] Coding Summary.on 09-14-2022 Coding Summary. Normal [facility] Consent for Treatmenton Consent for Treatment [id number]#1.00CD:12 [facility] Consent for Treatment [id number]#1.00CD:12 7 Normal [facility] Discharge Instructionson Discharge Instructions [id number]#1.00CD:12 7 [facility] Inpatient Clinical Summaryon 09-14-2022 Inpatient Clinical Summary Normal [facility] Inpatient Patient Summaryon 09-14-2022 Inpatient Patient Summary [facility] Insurance Correspondence Off iceon 09-14-2022 Insurance Correspondence Office [id number]#1.00CD:12 7 [facility] Nursing Assessmenton 022 Nursing Assessment [id number]#1.00CD:1 27 Normal [facility] UA With Cult Reflexon 2021 Bacteria LM Ql (Urine sed) TRACE Normal Trace [facility] Comment on above: Performed By: #### 1 8751683 ####[facility] [address] [place] [address] Bilirubin Ql (U) Negative Normal Negative [facility] Comment on above: Performed By: #### 1 8976199 ####[facility] [address] [place] [address] Clarity (U) CLEAR Normal Clear [facility] Comment on above: Performed By: #### 1 6627493 ####[facility] [address] [place] [address] Color (U) YELLOW Normal Yellow [facility] Comment on above: Performed By: #### 1 7563489 ####[address] [address] Crystals LM Ql (Urine sed) Present Normal [facility] Comment on above: Performed By: #### 1 5346212 ####[address] [address] Epithelial cells.squamous LM.HPF (Urine sed) [#/Area] 0-2 Normal 0-2 [facility] Comment on above: Performed By: #### 1 6891528 ####[address] [address] Glucose Test strip (U) [Mass/Vol] Negative Normal Negative [facility] Comment on above: Performed By: #### 1 2462631 ####[address] [address] Hemoglobin Ql (U) Negative Normal Negative [facility] Comment on above: Performed By: #### 1 1093442 ####[address] [address] Ketones (U) [Mass/Vol] Negative Normal Negative [facility] Comment on above: Performed By: #### 1 2377468 ####[address] [address] Ronald.plasma/Ronald .RBC (Bld) [Mass ratio] 0-3 Normal 0-3 [facility] Comment on above: Performed By: #### 1 3496749 ####[address] [address] Mucus Ql (Urine sed) TRACE Normal [facility] Comment on above: Performed By: #### 1 3046877 ####[address] [address] Nitrite Ql (U) Negative Normal Negative [facility] Comment on above: Performed By: #### 1 1627102 ####[address] [address] pH (U) 6.0 [pH] Invalid Interpretation Code 5.0-9.0 [facility] Comment on above: Performed By: #### 1 9897923 ####[facility] [address] [place] [address] Protein (U) [Mass/Vol] Negative Normal Negative [facility] Comment on above: Performed By: #### 1 4669281 ####[facility] [address] [place] [address] Specific gravity (U) [Rel density] <=1.005 Invalid Interpretation Code 1.005-1.030 [facility] Comment on above: Performed By: #### 1 6199056 ####[address] [address] Type of Urine collection method Random Urine Normal [facility] Comment on above: Performed By: #### 1 0099171 ####[address] [address] Urobilinogen Qn (U) 0.2 {Rola'U}/dL Normal 0.0-1.0 [facility] Comment on above: Performed By: #### 1 8856746 ####[facility] [address] [place] [address] WBC Auto Ql (U) TRACE Abnormal Negative [facility] Comment on above: Performed By: #### 1 3354000 ####[facility] [address] [place] [address] WBC LM.HPF (Urine sed) [#/Area] 0-5 Normal 0-5 [facility] Comment on above: Performed By: #### 1 4973237 ####[address] [address] URINALYSISOrdered By: An Lassiter on 09-14-2022 Bacteria [...] AM) Normal Negative [facility] UA Auto SS Ronald.plasma/Ronald .RBC (Bld) [Mass ratio] 0-3 /HPF Normal 0-3/HPF [facility] UA Auto SS Mucus Ql (Urine sed) Trace (09/14/22 9:25 AM) Normal [facility] UA Auto SS Nitrite Ql (U) Negative (09/14/22 9:25 AM) Normal Negative [facility] UA Auto SS pH (U) 6.0 *NA* (09/14/22 9:25 AM) Invalid Interpretation Code 5.0 - 9.0 [facility] UA Auto SS Protein (U) [Mass/Vol] Negative (09/14/22 9:25 AM) Normal Negative [facility] UA Auto SS Specific gravity (U) [Rel density] <=1.005 *NA* (09/14/22 9:25 AM) Invalid Interpretation Code 1.005 - 1.030 [facility] UA Auto SS UA Spec Desc Random Urine (09/14/22 9:25 AM) Normal [facility] UA Auto SS Urobilinogen Qn (U) 0.7470942 {Rola'U}/dL Normal 0.0 - 1.0 EU/dL [facility] UA Auto SS WBC Auto Ql (U) Trace *ABN* (09/14/22 9:25 AM) Invalid Interpretation Code Negative [facility] UA Auto SS WBC LM.HPF (Urine sed) [#/Area] 0-5 /HPF Normal 0-5/HPF [facility] UA Auto SS Coding Summary.on 09-12-2022 Coding Summary. Normal [facility] Consent for Treatmenton 08-16 Consent for Treatment [id number]#1.00CD:12 7 Normal [facility] Discharge Instructionson Discharge Instructions [id number]#1.00CD:12 7 Normal [facility] Discharge Instructions [id number]#1.00CD:1 27 Normal [facility] Inpatient Clinical Summaryon 09-12-2022 Inpatient Clinical Summary Normal [facility] Inpatient Patient Summaryon 09-12-2022 Inpatient Patient Summary Normal [facility] Insurance Correspondenceon 11-12-2021 Insurance Correspondence [id number]#1.00CD:12 7 Normal [facility] Insurance Correspondence Off iceon 09-12-2022 Insurance Correspondence Office [id number]#1.00CD:1 27 [facility] Nursing Assessmenton 022 Nursing Assessment [id number]#1.00CD:1 27 Normal [facility] UA With Cult Reflexon 2021 Bilirubin Ql (U) Negative Normal Negative [facility] Comment on above: Performed By: #### 1 1702069 ####[facility] [address] [place] [address] Clarity (U) CLEAR Normal Clear [facility] Comment on above: Performed By: #### 1 3704461 ####[facility] [address] [place], [place] [address] Color (U) YELLOW Normal Yellow [facility] Comment on above: Performed By: #### 1 7509231 ####[facility] [address] [place] 1943657 Crystals LM Ql (Urine sed) Present Normal [facility] Comment on above: Performed By: #### 1 5216092 ####[facility] [address] [place], [place] [address] Epithelial cells.squamous LM.HPF (Urine sed) [#/Area] 3-4 Normal 0-2 [facility] Comment on above: Performed By: #### 1 1027113 ####[facility] [address] [place] [address] Glucose Test strip (U) [Mass/Vol] Negative Normal Negative [facility] Comment on above: Performed By: #### 1 2895342 ####[facility] [address] [facility] [place] [address] Hemoglobin Ql (U) Negative Normal Negative [facility] Comment on above: Performed By: #### 1 7210621 ####[place] [address] [place] [address] Ketones (U) [Mass/Vol] Negative Normal Negative [facility] Comment on above: Performed By: #### 1 3962807 ####[address] [address] Ronald.plasma/Ronald .RBC (Bld) [Mass ratio] 0-3 Normal 0-3 [facility] Comment on above: Performed By: #### 1 6978877 ####[facility] [address] [facility] [place] [address] Nitrite Ql (U) Negative Normal Negative [facility] Comment on above: Performed By: #### 1 1254885 ####[address] [place] [address] pH (U) 6.0 [pH] Invalid Interpretation Code 5.0-9.0 [facility] Comment on above: Performed By: #### 1 5079330 ####[place] [address] [place] [address] Protein (U) [Mass/Vol] Negative Normal Negative [facility] Comment on above: Performed By: #### 1 1493957 ####[place] [address] [place] [address] Specific gravity (U) [Rel density] 1.010 Invalid Interpretation Code 1.005-1.030 [facility] Comment on above: Performed By: #### 1 0826336 ####[place] [address]57 Type of Urine collection method Clean Catch Normal [facility] Comment on above: Performed By: #### 1 5444322 ####[place] 2136857 Urobilinogen Qn (U) 0.2 {Rola'U}/dL Normal 0.0-1.0 [facility] Comment on above: Performed By: #### 1 0469978 ####[place] 2136857 WBC Auto Ql (U) Negative Normal Negative [facility] Comment on above: Performed By: #### 1 0701507 ####[place] 2136857 WBC LM.HPF (Urine sed) [#/Area] 0-5 Normal 0-5 [facility] Comment on above: Performed By: #### 1 9117264 ####[place] [address]136857 URINALYSISOrdered By: Jose Miguel nelson on 09-12-2022 [...] PM) Normal Negative [facility] UA Auto SS Ronald.plasma/Ronald .RBC (Bld) [Mass ratio] 0-3 /HPF Normal 0-3/HPF [facility] UA Auto SS Nitrite Ql (U) Negative (09/12/22 8:15 PM) Normal Negative [facility] UA Auto SS pH (U) 6.0 *NA* (09/12/22 8:15 PM) Invalid Interpretation Code 5.0 - 9.0 [facility] UA Auto SS Protein (U) [Mass/Vol] Negative (09/12/22 8:15 PM) Normal Negative [facility] UA Auto SS Specific gravity (U) [Rel density] 1.010 *NA* (09/12/22 8:15 PM) Invalid Interpretation Code 1.005 - 1.030 [facility] UA Auto SS UA Spec Desc Clean Catch (09/12/22 8:15 PM) Normal [facility] UA Auto SS Urobilinogen Qn (U) 0.4067879 {Rola'U}/dL Normal 0.0 - 1.0 EU/dL [facility] UA Auto SS WBC Auto Ql (U) Negative (09/12/22 8:15 PM) Normal Negative [facility] UA Auto SS WBC LM.HPF (Urine sed) [#/Area] 0-5 /HPF Normal 0-5/HPF [facility] UA Auto SS Coding Summary.on 09-11-2022 Coding Summary. Normal [facility] Consent for Treatmenton 08-16 Consent for Treatment [id number]#1.00CD:12 7 Normal [facility] Discharge Instructionson Discharge Instructions [id number]#1.00CD:1 27 Normal [facility] Inpatient Clinical Summaryon 09-08-2022 Inpatient Clinical Summary Normal [facility] Inpatient Patient Summaryon 09-08-2022 Inpatient Patient Summary Normal [facility] Coding Summary.on 09-06-2022 Coding Summary. Normal [facility] Discharge Instructionson Discharge Instructions [id number]#1.00CD:1 27 Normal [facility] ED Clinical Summaryon [address] [facility] ED Note-Nursingon 11-23-2022 ED Note-Nursing pt given d/c instruc tions and educated on importance of follow up. pt educated on new medications. pt verbalized understanding of instructions and readiness for d/c. pt walked self ambulatory to waiting room in stable condition Normal [facility] ED Patient Education Noteon 09-06-2022 ED Patient Education Note Normal [facility] ED Patient Summaryon 022 ED Patient Summary Normal [facility] XR Chest Single Viewon 09-06 XR Chest Single View Normal [facility] Auto Diffon 09-05-2022 Basophils/100 WBC (Bld) 1.0 % Normal 0.0-2.0 [facility] Comment on above: Order Comment: Order Added by Discern Expert. Performed By: #### 2 171355, 49645544, 06217860, 3397213, 76122573, 44897201, 7149995 ####[facility] [address] [place] [address] Basophils/Leukocytes Auto (Bld) [Pure # fraction] 0.1 E9/L Normal 0.0-0.2 [facility] Comment on above: Order Comment: Order Added by Discern Expert. Performed By: #### 2 356031, 64463999, 26470629, 3343218, 02972934, 39979009, 5628410 ####[facility] [address] [place] [address] Eosinophils/100 WBC (Bld) 1.4 % Normal 0.0-8.0 [facility] Comment on above: Order Comment: Order Added by Discern Expert. Performed By: #### 2 768872, 52999301, 97356371, 8230150, 44845104, 89359362, 1267167 ####[facility] [address] [place] [address] Eosinophils/Leukocytes Auto (Bld) [Pure # fraction] 0.2 E9/L Normal 0.0-0.5 [facility] Comment on above: Order Comment: Order Added by Discern Expert. Performed By: #### 2 792898, 79340872, 67470743, 9282085, 91989933, 26479541, 1416613 ####[address] [address] Lymphocytes/100 WBC (Bld) 18.8 % Normal 14.0-50.0 [facility] Comment on above: Order Comment: Order Added by Discern Expert. Performed By: #### 2 130421, 48361418, 19148587, 9803016, 98877220, 50106247, 2916490 ####[address] [place] [address] Lymphocytes/Leukocytes Auto (Bld) [Pure # fraction] 2.0 E9/L Normal 1.0-4.0 [facility] Comment on above: Order Comment: Order Added by Discern Expert. Performed By: #### 2 950071, 78516876, 53238843, 1212812, 06408032, 63258359, 4909764 ####[address] [address] Monocytes/100 WBC (Bld) 6.8 % Normal 4.0-14.0 [facility] Comment on above: Order Comment: Order Added by Discern Expert. Performed By: #### 2 048201, 97994675, 31965866, 0199913, 78490047, 04177449, 5301709 ####[address] [address] Monocytes/Leukocytes Auto (Bld) [Pure # fraction] 0.7 E9/L Normal 0.2-1.0 [facility] Comment on above: Order Comment: Order Added by Discern Expert. Performed By: #### 2 694561, 56858489, 17964911, 4314355, 71357120, 15710465, 8119023 ####[address] [address] Neutrophils/100 WBC (Bld) 72.0 % Normal 36.0-75.0 [facility] Comment on above: Order Comment: Order Added by Discern Expert. Performed By: #### 2 200027, 20122454, 60017575, 4758087, 56215874, 78906878, 2467831 ####[facility] [address] [place] [address] Neutrophils/Leukocytes Auto (Bld) [Pure # fraction] 7.8 E9/L High 2.0-7.5 [facility] Comment on above: Order Comment: Order Added by Discern Expert. Performed By: #### 2 384017, 87548236, 12123590, 7916426, 98528436, 92293496, 5158454 ####[facility] [address] [place] [address] BMPon 09-05-2022 Creatinine [Mass/Vol] 0.7 mg/dL Normal 0.5-1.3 [facility] Comment on above: Performed By: #### 2 957037, 73473695, 78489283, 3117850, 44126315, 82522757, 5255843 ####[facility] [address] [place] [address] Urea nitrogen [Mass/Vol] 7 mg/dL Normal 5-21 [facility] Comment on above: Performed By: #### 2 956809, 79072220, 90366462, 4155130, 42893681, 38376917, 4017048 ####[facility] [address] [place] [address] Urea nitrogen/Creatinine [Mass ratio] 10 No Units Normal 10-20 [facility] Comment on above: Performed By: #### 2 222256, 67703615, 03041918, 6652277, 71826830, 11761490, 9667942 ####[facility] [address] [place] [address] Anion gap [Moles/Vol] 10 mmol/L Normal 6-16 [facility] Comment on above: Performed By: #### 2 220920, 69446508, 30138890, 6125520, 13989531, 50567546, 8740609 ####[facility] [address] [place] [address] Calcium [Mass/Vol] 8.8 mg/dL Low 8.9-11.1 [facility] Comment on above: Performed By: #### 2 513977, 16792843, 86674547, 1808719, 51137909, 26643382, 1633750 ####[facility] [address] [place] [address] Chloride [Moles/Vol] 102 mmol/L Normal 101-111 [facility] Comment on above: Performed By: #### 2 789715, 24126831, 01818413, 0233938, 65033172, 09427608, 3283378 ####[facility] [address] [place] [address] CO2 [Moles/Vol] 22 mmol/L Normal 21-31 [facility] Comment on above: Performed By: #### 2 866606, 24208242, 65819764, 9979463, 70921000, 57434789, 0787574 ####[facility] [address] [place] [address] Glucose [Mass/Vol] 87 mg/dL Normal 55-199 [facility] Comment on above: Result Comment: If t his glucose result represents a fasting glucose, interpretation should refer to the following reference range: 55-99 mg/dL Performed By: #### 2 229455, 02021546, 70204652, 9075841, 74248114, 29321401, 9208652 ####[facility] [address] [place] [address] Potassium [Moles/Vol] 3.3 mmol/L Low 3.5-5.3 [facility] Comment on above: Performed By: #### 2 200055, 13650921, 93954698, 8169226, 03376721, 75180494, 9964892 ####[facility] [address] [place] [address] Sodium [Moles/Vol] 131 mmol/L Low 135-145 [facility] Comment on above: Performed By: #### 2 298116, 78513840, 50753310, 9690560, 73005028, 80229708, 8932405 ####[facility] [address] [place] [address] BNPon 09-05-2022 Int Ctr BNP Pass Normal [facility] Comment on above: Performed By: #### 2 158824, 83004924, 36623786, 0688341, 07660452, 45587968, 1047028 ####[facility] [address] [place] [address] Natriuretic peptide B (Bld) [Mass/Vol] 8 pg/mL Normal 5-80 [facility] Comment on above: Performed By: #### 2 341467, 52210893, 27231839, 5736066, 75980073, 66107999, 4788440 ####[address] [address] CBC w/ Auto Diffon Erythrocyte distribution width (RBC) [Ratio] 12.7 % Normal 10.9-14.2 [facility] Comment on above: Performed By: #### 2 209187, 02610086, 22503421, 6702375, 02332145, 64679095, 4696614 ####[address] [address] Hematocrit (Bld) [Volume fraction] 34.2 % Normal 34.0-46.0 [facility] Comment on above: Performed By: #### 2 239725, 28030795, 13832791, 1074047, 70879061, 25110253, 1770418 ####[address] [place] [address] Hemoglobin (Bld) [Mass/Vol] 12.3 g/dL Normal 12.0-16.0 [facility] Comment on above: Performed By: #### 2 821972, 03980867, 90209434, 5609122, 73221106, 47617186, 7906053 ####[facility] [address] [place] [address] MCH (RBC) [Entitic mass] 31.8 pg Normal 27.0-34.0 [facility] Comment on above: Performed By: #### 2 802316, 12771448, 26937666, 5570016, 06955667, 17806735, 0473904 ####[address] [address] MCHC (RBC) [Mass/Vol] 35.9 g/dL Normal 31.4-36.0 [facility] Comment on above: Performed By: #### 2 639184, 38485651, 28853388, 0526050, 75121535, 55863983, 1231647 ####[address] [address] MCV (RBC) [Entitic vol] 88.7 fL Normal 80.0-100.0 [facility] Comment on above: Performed By: #### 2 664040, 57808109, 80258487, 7666565, 81203480, 03921855, 7331074 ####[address] [address] Platelet mean volume (Bld) [Entitic vol] 9.8 fL Normal 6.4-10.8 [facility] Comment on above: Performed By: #### 2 155828, 88324879, 05360738, 4985655, 45743478, 72268883, 6792630 ####[address] [address] Platelets (Bld) [#/Vol] 215.0 E9/L Normal 150.0-500.0 [facility] Comment on above: Performed By: #### 2 474937, 01300599, 00301681, 7849206, 81319061, 57894231, 5142338 ####[address] [address] RBC (Bld) [#/Vol] 3.9 E12/L Low 4.3-5.9 [facility] Comment on above: Performed By: #### 2 744115, 07828363, 49155137, 1439108, 03801411, 82853611, 1920532 ####[facility] [address] [place] [address] WBC corrected for nucl RBC Auto (Bld) [#/Vol] 10.9 E9/L Normal 4.0-11.0 [facility] Comment on above: Result Comment: Slid e reviewed by ts. Performed By: #### 2 905063, 98705343, 04348921, 8514198, 63753257, 92971537, 3710241 ####[facility] [address] [place] [address] CHEMISTRYOrdered By: SYSTEM SYSTEM on 09-05-2022 Anion [...] rate/Area] mL/min/1.73 m2 Normal >=59mL/min/ 1.73 m2 [facility] Chem S GFR/1.73 sq M.predicted among non-blacks MDRD (S/P/Bld) [Vol rate/Area] mL/min/1.73 m2 Normal >=59mL/min/ 1.73 m2 [facility] Chem S Glucose [Mass/Vol] 87 mg/dL Normal 55 - 199 mg/dL [facility] Potassium [Moles/Vol] 3.3 mmol/L Low 3.5 - 5.3 mmol/L [facility] Remisol Sodium [Moles/Vol] 131 mmol/L Low 135 - 145 mmol/L [facility] Remisol Troponin I.cardiac [Mass/Vol] 4.70 pg/mL Low 10.10 - 27.10 pg/mL [facility] Remisol Urea nitrogen [Mass/Vol] 7 mg/dL Normal 5 - 21 mg/dL [facility] Remisol Urea nitrogen/Creatinine [Mass ratio] 10 mg/mg Normal 10 - 20 [facility] Remisol CHEMISTRYOrdered By: Temi hayden on 09-05-2022 Natriuretic peptide B (Bld) [Mass/Vol] 8 pg/mL Normal 5 - 80 pg/mL [facility] HemeManSS COAGULATIONOrdered By: Yamile Li on 09-05-2022 aPTT Coag (PPP) [Time] 27.1 s Normal 25.1 - 36.5 second(s) [facility] Auto Coag INR Coag (PPP) [Relative time] 0.9 {INR} Invalid Interpretation Code [facility] Auto Coag PT Coag (PPP) [Time] 10.3 s Normal 9.4 - 1 2.5 second(s) [facility] Auto Coag Consent for Treatmenton 08-16 Consent for Treatment [id number]#1.00CD:12 7 Normal [facility] ED Note-Nursingon 09-05-2022 ED Note-Nursing Normal [facility] ED Note-Physicianon 09-05-20 ED Note-Physician Normal [facility] Comment on above: Result Comment: Elec tronically Signed By: Gopi Rodriguez DO\Patriciabr\Date and Time Signed: 09/05/22 21:46 EST Group B Strep by PCRon 09-05 Group B Strep colonization by PCR Negative Normal Negative [facility] Comment on above: Performed By: #### 4 [id number] ####[facility] [address] [place] [address] HEMATOLOGYOrdered By: SYSTEM SYSTEM on 09-05-2022 Basophils/100 [...] 3.9 E12/L Low 4.3 - 5.9 E12/L [facility] HemeAutoSS WBC corrected for nucl RBC Auto (Bld) [#/Vol] 10.9 E9/L Normal 4.0 - 11.0 E9/L [facility] HemeAutoSS Comment on above: Result Comment: Slid e reviewed by ts. MICRO OTHER TESTSOrdered By: Valerie Li on 09-05-2022 Rapid COV Int NEG Ctl Pass (09/05/22 8:22 PM) Normal [facility] Man Sero Rapid COV Int POS Ctl Pass (09/05/22 8:22 PM) Normal [facility] Man Sero SARS-CoV+SARS-CoV-2 (COVID-19) Ag IA.rapid Ql (Resp) Detected 2 *ABN* (09/05/22 8:22 PM) Invalid Interpretation Code Not Detected [facility] Man Sero Comment on above: Result Comment: Resu lts Called To Berna Cook RN/ER By AGNIESZKA And Read Back For Confirmation On 09/05/2022 21:14:20 EST Results Verified By Repeat Analysis PT & PTTon 09-05-2022 aPTT Coag (PPP) [Time] 27.1 second(s) Normal 25.1-36.5 [facility] Comment on above: Result Comment: Para [...] the same coagulation reagent and instrumentation as [facility]. Currently there are no coagulation studies available worldwide for children to 14 days, and no normal ranges. Heparin therapeutic range (represented by Anti-Factor Xa activity of 0.2 - 0.4 U/mL) corresponds to PTT of 56.6 - 109.0 sec. Performed By: #### 2 202459, 71811190, 48713329, 7567961, 84603249, 38531908, 0008648 ####[facility] [address] [place] [address] INR Coag (PPP) [Relative time] 0.9 {INR} Invalid Interpretation Code [facility] Comment on above: Result Comment: INR results are specifically intended to assess patients stabilized on long-term Anticoagulation therapy suggested INR?s ?Less Intensive Anticoagulation? 2.0 ? 3.0Conventional Range 3.0 ? 4.5 Performed By: #### 2 899254, 87051426, 86464985, 3172596, 77952480, 44633788, 8813757 ####[facility] [address] [place] [address] PT Coag (PPP) [Time] 10.3 second(s) Normal 9.4-12.5 [facility] Comment on above: Result Comment: 15 [...] the same coagulation reagent and instrumentation as [facility]. Currently there are no coagulation studies available worldwide for children to 14 days, and no normal ranges. Performed By: #### 2 580067, 17497390, 81840156, 2933106, 79744329, 06901793, 9070542 ####[facility] [address] [place] [address] Rapid COVID Antigen ([facility])on 09-05-2022 Rapid COV Int NEG Ctl Pass Normal Fis [facility] Comment on above: Performed By: #### 2 [id number] ####[facility] [address] [place] [address] Rapid COV Int POS Ctl Pass Normal Fis her [facility] Comment on above: Performed By: #### 2 [id number] ####[facility] [address] [place] [address] SARS-CoV+SARS-CoV-2 (COVID-19) Ag IA.rapid Ql (Resp) Detected Abnormal Not Detected [facility] Comment on above: Result Comment: Resu lts Called To Berna Cook, RN/ER By AGNIESZKA And Read Back For Confirmation On 09/05/2022 21:14:20 ESTResults Verified By Repeat AnalysisThe [employer] System for Rapid Detection of SARS-CoV-2 is [...] or revoked sooner. Performed By: #### 2 [id number] ####[place] [address] ADMITTED TO INTENSIVE CARE UNIT FOR CONDITION OF INTEREST:FIND:PT: NO Normal [facility] Comment on above: Performed By: #### 2 [id number] ####[place] [address] EMPLOYED IN A HEALTHCARE SETTING:FIND:PT: NO Normal [facility] Comment on above: Performed By: #### 2 [id number] ####[place] [address] FIRST TEST FOR CONDITION OF INTEREST:FIND:PT: YES Normal [facility] Comment on above: Performed By: #### 2 [id number] ####[place] [address] HAS SYMPTOMS RELATED TO CONDITION OF INTEREST:FIND:PT: YES Normal [facility] Comment on above: Performed By: #### 2 [id number] ####[place] [address] HOSPITALIZED FOR CONDITION OF INTEREST:FIND:PT: NO Normal [facility] Comment on above: Performed By: #### 2 [id number] ####[place] [id number] STATUS:FIND:PT: NO Normal [facility] Comment on above: Performed By: #### 2 [id number] ####[place] [address] RESIDES IN A CONGREGATE CARE SETTING:FIND:PT: NO Normal [facility] Comment on above: Performed By: #### 2 [id number] ####[address] [address] Troponin 0 Hr.on 09-05-2022 Troponin I.cardiac [Mass/Vol] 4.70 pg/mL Low 10.10-27.10 [facility] Comment on above: Result Comment: The 95% CI (Confidence Interval) PPV (Positive Predictive Value) for myocardial infarction in females is 38 pg/mL, in males 51 pg/mL. The results should be used in conjunction with clinical conditions of myocardial infarction.(Access High Sensitivity Troponin I Instructions For Use, Ziggy Regina, May 2018) Performed By: #### 2 926158, 57553571, 91082242, 8418487, 81380097, 11794764, 6242160 ####[facility] [address] [place] [address] eGFRon 09-05-2022 GFR/1.73 sq M.predicted among blacks MDRD (S/P/Bld) [Vol rate/Area] mL/min/{1.73_m2} Normal >=59 [facility] Comment on above: Order Comment: Order added by Discern Expert. Result Comment: eGFR is race adjusted. AA=. Performed By: #### 2 824016, 09928913, 63582725, 0008308, 23696260, 19580192, 5144455 ####[facility] [address] [place] [address] GFR/1.73 sq M.predicted among non-blacks MDRD (S/P/Bld) [Vol rate/Area] mL/min/{1.73_m2} Normal >=59 [facility] Comment on above: Order Comment: Order added by Discern Expert. Result Comment: Avionics Installer lucy kidney disease could be indicated at eGFR's of less than 60 mL/min/1.73m2. Kidney failure is indicated at less than 15 mL/min/1.73m2. Performed By: #### 2 278738, 81184700, 28549821, 5258574, 25148606, 29375081, 3149657 ####[facility] [address] [place] [address] Coding Summary.on 09-04-2022 Coding Summary. Normal [facility] Nursing Assessmenton 022 Nursing Assessment [id number]#1.00CD:1 27 Normal [facility] Physician Orderon 09-04-2022 Physician Order [id number]#1.00CD:1 27 Normal [facility] ABO/Rhon 08-31-2022 ABO/Rh Positive Invalid Interpretation Code [facility] Comment on above: Performed By: #### 1 1084219, 6583212, 77938409, 88016011 ####[facility] [address] [place] [address] ABO/Rh History Checkon 08-31 ABO/Rh History Check Verified Hx Blood Type Normal [facility] Comment on above: Performed By: #### 1 8130293, 0765970, 96906526, 52859718 ####[facility] [address] [place] [address] ABSCon 08-31-2022 ABSC Gel Interp Negative Normal [facility] Comment on above: Performed By: #### 1 8942069, 2324452, 85279699, 53886232 ####[facility] [address] [place] [address] BUNon 08-31-2022 Urea nitrogen [Mass/Vol] 8 mg/dL Normal 03-04 [facility] Comment on above: Performed By: #### 2 661818, 8679745, 17163803, 3312680, 34119207, 8532242, 7616092, 1666441, 6134806, 8289941, 01789787 ####[facility] [address] [place] [address] Blood Bank ID#on 08-31-2022 BBID# [id number] Invalid Interpretation Code [facility] Comment on above: Performed By: #### 1 9066962, 9947125, 99089252, 70704562 ####[facility] [address] [place] [address] CBC w/Indiceson 08-31-2022 Erythrocyte distribution width (RBC) [Ratio] 12.9 % Normal 10.9-14.2 [facility] Comment on above: Performed By: #### 2 181195, 1422524, 99812642, 0085644, 04172826, 5456828, 3255266, 7462863, 3889255, 4315236, 19370921 ####[facility] [address] [place] [address] Hematocrit (Bld) [Volume fraction] 35.0 % Normal 34.0-46.0 [facility] Comment on above: Performed By: #### 2 118069, 4493415, 73397217, 8985731, 98281836, 1530694, 6094084, 5201443, 0708526, 5171446, 96600005 ####[facility] [address] [place] [address] Hemoglobin (Bld) [Mass/Vol] 12.0 g/dL Normal 12.0-16.0 [facility] Comment on above: Performed By: #### 2 856437, 0719677, 69381383, 6535158, 17828683, 3504659, 7589132, 9395062, 6833083, 8308230, 29908512 ####[facility] [address] [place] [address] MCH (RBC) [Entitic mass] 30.7 pg Normal 27.0-34.0 [facility] Comment on above: Performed By: #### 2 134684, 6905739, 90865153, 5991377, 05249485, 5523517, 7632811, 0762904, 3765588, 3755431, 24550213 ####[facility] [address] [place] [address] MCHC (RBC) [Mass/Vol] 34.4 g/dL Normal 31.4-36.0 [facility] Comment on above: Performed By: #### 2 179848, 0736876, 68471733, 2094897, 11894259, 0492570, 6805343, 8000134, 6262701, 8228981, 97123313 ####[facility] [address] [place] [address] MCV (RBC) [Entitic vol] 89.5 fL Normal 80.0-100.0 [facility] Comment on above: Performed By: #### 2 826631, 9338085, 78118387, 4309129, 52135416, 1182299, 2313593, 5612252, 3177245, 2346393, 04362347 ####[facility] [address] [place] [address] Platelet mean volume (Bld) [Entitic vol] 9.8 fL Normal 6.4-10.8 [facility] Comment on above: Performed By: #### 2 727754, 8799424, 05269389, 9099155, 99873214, 8532586, 5058063, 9062855, 9762690, 8025044, 06685796 ####[address] [address] Platelets (Bld) [#/Vol] 234.0 E9/L Normal 150.0-500.0 [facility] Comment on above: Performed By: #### 2 338032, 7624642, 65366250, 4340927, 63084104, 5369067, 7249066, 3790889, 9513995, 4858400, 90847340 ####[address] [address] RBC (Bld) [#/Vol] 3.9 E12/L Low 4.3-5.9 [facility] Comment on above: Performed By: #### 2 976212, 2586192, 79403671, 0052106, 51229050, 5924612, 3078210, 0692208, 9963786, 8587984, 99015098 ####[address] [place] [address] WBC corrected for nucl RBC Auto (Bld) [#/Vol] 12.6 E9/L High 4.0-11.0 [facility] Comment on above: Performed By: #### 2 227709, 3179533, 96437273, 8322938, 95883480, 9906938, 4765389, 5548915, 5708850, 0999958, 48106971 ####[facility] [address] [place] [address] Creatinineon 08-31-2022 Creatinine [Mass/Vol] 0.7 mg/dL Normal 0.5-1.3 [facility] Comment on above: Performed By: #### 2 974206, 8473386, 38054271, 1889696, 53036953, 8694799, 9110665, 6812726, 8473771, 6408577, 48225401 ####[address] [place] [address] Discharge Instructionson Discharge Instructions [id number]#1.00CD:12 7 Normal [facility] Ethanolon 08-31-2022 Ethanol [Mass/Vol] mg/dL Normal <=7 [facility] Comment on above: Performed By: #### 2 339580 ####[address] [place] [address] FSPon 08-31-2022 Fibrin+Fibrinogen fragments (S) [Mass/Vol] <10 Normal <10 [facility] Comment on above: Performed By: #### 2 319790, 8697104, 24775227, 0756037, 01204818, 4336814, 1626919, 6645878, 9643752, 2291509, 29156842 ####[facility] [address] [place] [address] Stainon 08-31-2022 FMHV 0 mL Invalid Interpretation Code [facility] Comment on above: Performed By: #### 2 742906, 0470937, 88033071, 8923126, 85374048, 3727206, 7556258, 4056919, 6444848, 8585100, 10234689 ####[facility] [address] [place] [address] Negative Control Negative Normal [facility] Comment on above: Performed By: #### 2 469857, 5429596, 77323167, 4359580, 24473338, 4842315, 1792880, 1055952, 4075717, 5299216, 04307677 ####[facility] [address] [place] [address] Fibrinogenon 08-31-2022 Fibrinogen Coag (PPP) [Mass/Vol] 406 mg/dL High 200-393 [facility] Comment on above: Performed By: #### 2 913728, 0126018, 33187436, 7151906, 29959850, 5707607, 3888434, 0386594, 0709184, 2443396, 16774618 ####[facility] [address] [place] [address] Hep Func Panelon 08-31-2022 Bilirubin.indirect [Mass or moles/Vol] UTC Abnormal 0.1-0.9 [facility] Comment on above: Result Comment: Resu lt verified by Discern Rule. Performed result UTC (Unable to Calculate) was sent as an Alpha code due the inability to calculate a valid numeric value. Performed By: #### 2 819869, 2115872, 23717920, 1302128, 26822921, 9777512, 9215224, 9427373, 3417015, 3464196, 20207300 ####[facility] [address] [place] [address] Albumin [Mass/Vol] 2.8 g/dL Low 3.3-5.0 [facility] Comment on above: Performed By: #### 2 810826, 0744590, 92485555, 0299145, 68709563, 1648527, 9199826, 2471591, 0345982, 3003778, 01419406 ####[facility] [address] [place] [address] Albumin/Globulin (S) [Mass conc ratio] 0.7 Low 1.1-2.2 [facility] Comment on above: Performed By: #### 2 576231, 9897998, 09929614, 5875113, 13308214, 7254465, 8226004, 6966927, 2996163, 0323724, 11895645 ####[facility] [address] [place] [address] ALP [Catalytic activity/Vol] 80 Int._Unit/L Normal 21-98 [facility] Comment on above: Performed By: #### 2 681660, 8326656, 10230226, 6896682, 64036407, 8422774, 8367454, 5685680, 4032973, 7557473, 39987490 ####[address] [place] [address] ALT No additional P-5'-P [Catalytic activity/Vol] 10 Int._Unit/L Normal 6-46 [facility] Comment on above: Performed By: #### 2 979618, 6937835, 52950882, 6171808, [id number], 3832796, 1768449, 0902129, 8521884, 9553873, [id number] ####[address] [address] AST [Catalytic activity/Vol] 16 Int._Unit/L Normal 5-43 [facility] Comment on above: Performed By: #### 2 722500, 6958906, 10074770, 0086909, 80879194, 2601595, 5932194, 3342637, 6265736, 7128452, [id number] ####[facility] [address] [place] [address] Bilirubin [Mass/Vol] 0.1 mg/dL Normal 0.0-1.1 [facility] Comment on above: Performed By: #### 2 949576, 9610759, 17242920, 0581673, 34406282, 8459898, 0985368, 2065690, 1548421, 4617755, 58308114 ####[address] [place] [address] Bilirubin.direct [Mass/Vol] mg/dL Normal 0.1-0.4 [facility] Comment on above: Performed By: #### 2 109065, 8232344, 18310277, 4505490, 47546757, 4138195, 5359912, 3264274, 6029795, 6991377, 32128257 ####[facility] [address] [place] [address] Globulin (S) [Mass/Vol] 3.8 g/dL Normal 1.4-4.0 [facility] Comment on above: Performed By: #### 2 887518, 3208041, 93697023, 6418605, 15829206, 3884620, 0279405, 2748995, 4472552, 3676638, 28299212 ####[facility] [address] [place] [address] Protein [Mass/Vol] 6.6 g/dL Normal 6.0-7.8 [facility] Comment on above: Performed By: #### 2 806882, 8316547, 38512783, 2577915, 20728832, 3889545, 8783853, 9601597, 6639255, 0966394, 24091607 ####[facility] [address] [place] [address] Inpatient Clinical Summaryon 08-31-2022 Inpatient Clinical Summary Normal [facility] Inpatient Patient Summaryon 08-31-2022 Inpatient Patient Summary Normal [facility] Lyteson 08-31-2022 Anion gap [Moles/Vol] 13 mmol/L Normal 6-16 [facility] Comment on above: Performed By: #### 2 952470, 0633467, 22481422, 4428773, 69085997, 1323072, 0413843, 2552287, 5292228, 6105291, 96443201 ####[facility] [address] [place] [address] Chloride [Moles/Vol] 104 mmol/L Normal 101-111 [facility] Comment on above: Performed By: #### 2 148549, 5606934, 02273044, 5425682, 48105833, 7210704, 9907450, 2058915, 6790265, 8097362, 67291149 ####[facility] [address] [place] [address] CO2 [Moles/Vol] 22 mmol/L Normal 21-31 [facility] Comment on above: Performed By: #### 2 521869, 3913092, 99469550, 6490961, 72716639, 1522488, 2939849, 9837991, 7558937, 1447273, 81481958 ####[facility] [address] [place] [address] Potassium [Moles/Vol] 3.5 mmol/L Normal 3.5-5.3 [facility] Comment on above: Performed By: #### 2 709091, 1888704, 37801734, 1708705, 91745112, 1240729, 8297397, 1099958, 7001390, 0464618, 27315491 ####[facility] [address] [place] [address] Sodium [Moles/Vol] 135 mmol/L Normal 135-145 [facility] Comment on above: Performed By: #### 2 938658, 7300179, 99224325, 1118652, 19382753, 0226973, 0333337, 9746903, 4981884, 8608156, 26741638 ####[facility] [address] [place] [address] Nursing Assessmenton 022 Nursing Assessment [id number]#1.00CD:12 7 Normal [facility] PT & PTTon 08-31-2022 aPTT Coag (PPP) [Time] 26.3 second(s) Normal 25.1-36.5 [facility] Comment on above: Result Comment: Para [...] the same coagulation reagent and instrumentation as [facility]. Currently there are no coagulation studies available worldwide for children to 14 days, and no normal ranges. Heparin therapeutic range (represented by Anti-Factor Xa activity of 0.2 - 0.4 U/mL) corresponds to PTT of 56.6 - 109.0 sec. Performed By: #### 2 010658, 5200543, 95617012, 5748083, 58085792, 9686687, 8819206, 4635257, 8169523, 8302144, 58404168 ####[facility] [address] [facility] [place] [address] INR Coag (PPP) [Relative time] 0.9 {INR} Invalid Interpretation Code [facility] Comment on above: Result Comment: INR results are specifically intended to assess patients stabilized on long-term Anticoagulation therapy suggested INR?s ?Less Intensive Anticoagulation? 2.0 ? 3.0Conventional Range 3.0 ? 4.5 Performed By: #### 2 628678, 6755911, 59945593, 4463262, 04739817, 6687872, 0112532, 7418942, 1814833, 2349737, 01385015 ####[facility] [address] [facility] [place] [address] PT Coag (PPP) [Time] 10.2 second(s) Normal 9.4-12.5 [facility] Comment on above: Result Comment: 15 [...] the same coagulation reagent and instrumentation as [facility]. Currently there are no coagulation studies available worldwide for children to 14 days, and no normal ranges. Performed By: #### 2 118785, 5745632, 46663420, 6641212, 15784364, 1426602, 8564417, 5993037, 2130624, 2363098, 55647572 ####[facility] [address] [place] [address] U Drug Screenon 08-31-2022 Amphetamines Screen method >1000 ng/mL Ql (U) Negative Normal Negative [facility] Comment on above: Result Comment: Nega tive Cutoff: <1000 ng/mL Performed By: #### 2 609845, 94997273 ####[facility] [address] [place] [address] Barbiturates Screen Ql (U) Negative Normal Negative [facility] Comment on above: Result Comment: Nega tive Cutoff: <200 ng/mL Performed By: #### 2 359364, 48090218 ####[facility] [address] [place] [address] Benzodiazepines Ql (U) Negative Normal Negative [facility] Comment on above: Result Comment: Nega tive Cutoff: <200 ng/mL Performed By: #### 2 609063, 85000665 ####[facility] [address] [place] [address] Cocaine Ql (U) Negative Normal Negative [facility] Comment on above: Result Comment: Nega tive Cutoff: <300 ng/mL Performed By: #### 2 754282, 40684829 ####[facility] [address] [place] [address] Opiates Screen Ql (U) Negative Normal Negative [facility] Comment on above: Result Comment: Nega tive Cutoff: <300 ng/mL Performed By: #### 2 249953, 64636126 ####[facility] [address] [place] [address] Phencyclidine Screen method >25 ng/mL Ql (U) Negative Normal Negative [facility] Comment on above: Result Comment: Nega tive Cutoff: <25 ng/mLThese drug screen results are to be used for medical (i.e., treatment) purposes only. Unconfirmed drug screening results must not be used for non-medical purposes (e.g., employment testing, legal testing). Performed By: #### 2 485592, 49618071 ####[address] [address] Tetrahydrocannabinol Screen method >50 ng/mL Ql (U) Negative Normal Negative [facility] Comment on above: Result Comment: Nega tive Cutoff: <50 ng/mL Performed By: #### 2 252112, 30118330 ####[facility] [address] [place] [address] UA With Cult Reflexon 2021 Bacteria LM Ql (Urine sed) TRACE Normal Trace [facility] Comment on above: Performed By: #### 2 077073, 89955213 ####[facility] [address] [place] [address] Bilirubin Ql (U) Negative Normal Negative [facility] Comment on above: Performed By: #### 2 745978, 24460257 ####[facility] [address] [place] [address] Clarity (U) CLEAR Normal Clear [facility] Comment on above: Performed By: #### 2 855751, 38998441 ####[facility] [address] [place] [address] Color (U) YELLOW Normal Yellow [facility] Comment on above: Performed By: #### 2 960569, 38715851 ####[facility] [address] [place] [address] Epithelial cells.squamous LM.HPF (Urine sed) [#/Area] 0-2 Normal 0-2 [facility] Comment on above: Performed By: #### 2 792186, 40507709 ####[facility] [address] [place] [address] Glucose Test strip (U) [Mass/Vol] Negative Normal Negative [facility] Comment on above: Performed By: #### 2 113857, 61735420 ####[address] [place] [address] Hemoglobin Ql (U) Negative Normal Negative [facility] Comment on above: Performed By: #### 2 226823, 58092630 ####[address] [address] Ketones (U) [Mass/Vol] Negative Normal Negative [facility] Comment on above: Performed By: #### 2 013816, 74236823 ####[address] [address] Ronald.plasma/Ronald .RBC (Bld) [Mass ratio] 0-3 Normal 0-3 [facility] Comment on above: Performed By: #### 2 680056, 46349803 ####[facility] [address] [place] [address] Nitrite Ql (U) Negative Normal Negative [facility] Comment on above: Performed By: #### 2 821345, 92126223 ####[facility] [address] [place] [address] pH (U) 6.0 [pH] Invalid Interpretation Code 5.0-9.0 [facility] Comment on above: Performed By: #### 2 300719, 53381082 ####[address] [place] [address] Protein (U) [Mass/Vol] Negative Normal Negative [facility] Comment on above: Performed By: #### 2 617830, 91168219 ####[address] [address] Specific gravity (U) [Rel density] 1.010 Invalid Interpretation Code 1.005-1.030 [facility] Comment on above: Performed By: #### 2 570277, 02114824 ####[facility] [address] [place], [place] [address] Type of Urine collection method Clean Catch Normal [facility] Comment on above: Performed By: #### 2 393895, 31455018 ####[address] Urobilinogen Qn (U) 0.2 {Rola'U}/dL Normal 0.0-1.0 [facility] Comment on above: Performed By: #### 2 506648, 45696072 ####[address] WBC Auto Ql (U) Negative Normal Negative [facility] Comment on above: Performed By: #### 2 227917, 35414923 ####[facility] [address] [place], [place] [address] WBC LM.HPF (Urine sed) [#/Area] 0-5 Normal 0-5 [facility] Comment on above: Performed By: #### 2 409168, 22058106 ####[facility] [address] [place] [address] Uric Acidon 08-31-2022 Urate [Mass/Vol] 5.0 mg/dL Normal 2.2-7.4 [facility] Comment on above: Performed By: #### 2 427134, 9613811, 61476600, 2731619, 35602338, 1232985, 6112470, 8541951, 8186907, 9619253, 23925536 ####[address] [address] eGFRon 08-31-2022 GFR/1.73 sq M.predicted among blacks MDRD (S/P/Bld) [Vol rate/Area] mL/min/{1.73_m2} Normal >=59 [facility] Comment on above: Order Comment: Order added by Discern Expert. Result Comment: eGFR is race adjusted. AA=. Performed By: #### 2 401745, 2314531, 14139328, 4602092, 23938151, 3557116, 1339905, 2001318, 0106911, 5786159, 25928254 ####[facility] [address] [place] [address] GFR/1.73 sq M.predicted among non-blacks MDRD (S/P/Bld) [Vol rate/Area] mL/min/{1.73_m2} Normal >=59 [facility] Comment on above: Order Comment: Order added by Discern Expert. Result Comment: Avionics Installer lucy kidney disease could be indicated at eGFR's of less than 60 mL/min/1.73m2. Kidney failure is indicated at less than 15 mL/min/1.73m2. Performed By: #### 2 479492, 7338258, 67973027, 2942440, 64039732, 8049337, 1996202, 5447319, 7929539, 3324139, 07740631 ####[facility] [address] [place] [address] BLOOD BANKOrdered By: Naldo Li on 08-30-2022 ABO/Rh Interp Positive Invalid Interpretation Code [facility] BB Subsection ABSC Gel Interp Negative (08/30/22 11:51 PM) Normal [facility] BB Subsection FMHV 0 mL Invalid Interpretation Code [facility] Man Sero CHEMISTRYOrdered By: SYSTEM SYSTEM on [...] Consent for Treatmenton 08-15 Consent for Treatment [id number]#1.00CD:12 7 Normal [facility] HEMATOLOGYOrdered By: Naldo Li on 08-30-2022 [...] PM) Normal Negative [facility] UA Auto SS Ronald.plasma/Ronald .RBC (Bld) [Mass ratio] 0-3 /HPF Normal [...] FT UA Auto SS Urobilinogen Qn (U) 0.1808058 {Rola'U}/dL Normal 0.0 - 1.0 EU/dL [facility] UA Auto SS WBC Auto Ql (U) Negative (08/30/22 9:45 PM) Normal Negative [facility] UA Auto SS WBC LM.HPF (Urine sed) [#/Area] 0-5 /HPF Normal 0-5/HPF [facility] UA Auto SS Coding Summary.on 08-28-2022 Coding Summary. Normal [facility] BLOOD BANKOrdered By: Janet Reyes on 08-22-2022 ABO/Rh Interp Positive Invalid Interpretation Code [facility] BB Subsection ABSC Gel Interp Negative (08/22/22 4:03 PM) Normal [facility] BB Subsection FMHV 0 mL Invalid Interpretation Code [facility] Man Sero CHEMISTRYOrdered By: SYSTEM SYSTEM on [...] rate/Area] mL/min/1.73 m2 Normal >=59mL/min/ 1.73 m2 [facility] Chem S Globulin (S) [Mass/Vol] 3.7 g/dL [...] PM) Normal Negative [facility] UA Auto SS Ronald.plasma/Ronald .RBC (Bld) [Mass ratio] 0-3 /HPF Normal [...] [facility] UA Auto SS Urobilinogen Qn (U) 0.4321765 {Rola'U}/dL Normal 0.0 - 1.0 EU/dL [facility] [...] AM) Normal Negative [facility] UA Auto SS Ronald.plasma/Ronald .RBC (Bld) [Mass ratio] 0-3 /HPF Normal [...] Desc Clean Catch (08/18/22 4:08 AM) Normal [facility] UA Auto SS Urobilinogen Qn (U) 0.7057435 {Rola'U}/dL Normal 0.0 - 1.0 EU/dL [facility] UA Auto SS WBC Auto Ql (U) 2+ *ABN* (08/18/22 4:08 AM) Invalid Interpretation Code Negative [facility] UA Auto SS WBC LM.HPF (Urine sed) [#/Area] 6-15 /HPF Invalid Interpretation Code 0-5/HPF [facility] UA Auto SS BLOOD BANKOrdered By: Tom Avelar on 08-13-2022 ABO/Rh Interp Positive Invalid Interpretation Code FT BB Subsection ABSC Gel Interp Negative (08/13/22 6:26 PM) Normal [facility] BB Subsection FMHV 0 mL Invalid Interpretation Code [facility] Man Sero CHEMISTRYOrdered By: SYSTEM SYSTEM on [...] Normal Negative [facility] Remisol COAGULATIONOrdered By: Jose Miugel De La Cruz on 08-13-2022 aPTT Coag [...] Interpretation Code Negative [facility] UA Auto SS Ronald.plasma/Ronald .RBC (Bld) [Mass ratio] 0-3 /HPF Normal [...] [facility] UA Auto SS Urobilinogen Qn (U) 0.9752540 {Rola'U}/dL Normal 0.0 - 1.0 EU/dL [facility] [...] AM) Normal Negative [facility] UA Auto SS Ronald.plasma/Ronald .RBC (Bld) [Mass ratio] 0-3 /HPF Normal [...] [facility] UA Auto SS Urobilinogen Qn (U) 0.0796471 {Rola'U}/dL Normal 0.0 - 1.0 EU/dL [facility] [...] AM) Normal Negative [facility] UA Auto SS Ronald.plasma/Ronald .RBC (Bld) [Mass ratio] 0-3 /HPF Normal 0-3/HPF [facility] UA Auto SS Nitrite Ql (U) Negative (07/17/22 9:25 AM) Normal Negative [facility] UA Auto SS pH (U) 7.0 *NA* (07/17/22 9:25 AM) Invalid Interpretation Code 5.0 - 9.0 [facility] UA Auto SS Protein (U) [Mass/Vol] Negative (07/17/22 9:25 AM) Normal Negative [facility] UA Auto SS Specific gravity (U) [Rel density] <=1.005 *NA* (07/17/22 9:25 AM) Invalid Interpretation Code 1.005 - 1.030 [facility] UA Auto SS UA Spec Desc Clean Catch (07/17/22 9:25 AM) Normal [facility] UA Auto SS Urobilinogen Qn (U) 0.6428243 {Rola'U}/dL Normal 0.0 - 1.0 EU/dL [facility] UA Auto SS WBC Auto Ql (U) Negative (07/17/22 9:25 AM) Normal Negative [facility] UA Auto SS WBC LM.HPF (Urine sed) [#/Area] 0-5 /HPF Normal 0-5/HPF [facility] UA Auto SS CHEMISTRYOrdered By: SYSTEM SYSTEM on 06-28-2022 Glucose 1 Hr post 50 g glucose PO [Mass/Vol] 93 mg/dL Normal 55 - 140 mg/dL [facility] Remisol HEMATOLOGYOrdered By: Keila Ring on 06-28-2022 Hematocrit (Bld) [Volume fraction] 35.4 % Normal 34.0 - 46.0 % [facility] HemeAutoSS Hemoglobin (Bld) [Mass/Vol] 12.1 g/dL Normal 12.0 - 16.0 gm/dL [facility] HemeAutoSS BLOOD BANKOrdered By: Jeanette Castle on 06-19-2022 ABO/Rh Interp Positive Invalid Interpretation Code [facility] BB Subsection ABSC Gel Interp Negative (06/19/22 12:15 AM) Normal [facility] BB Subsection FMHV 0 mL Invalid Interpretation Code [facility] Man Sero CHEMISTRYOrdered By: SYSTEM SYSTEM on 06-19-2022 Albumin [Mass/Vol] 2.9 g/dL Low 3.3 - 5.0 gm/dL [facility] Remisol Albumin/Globulin [Mass ratio] 0.8 {ratio} Low [...] PM) Normal Negative [facility] UA Auto SS Ronald.plasma/Ronald .RBC (Bld) [Mass ratio] 0-3 /HPF Normal [...] [facility] UA Auto SS Urobilinogen Qn (U) 0.8993465 {Rola'U}/dL Normal 0.0 - 1.0 EU/dL [facility] [...] PM) Normal Negative [facility] UA Auto SS Ronald.plasma/Ronald .RBC (Bld) [Mass ratio] 0-3 /HPF Normal [...] Desc Random Urine (05/01/22 5:20 PM) Normal [facility] UA Auto SS Urobilinogen Qn (U) 1.0919337 {Rola'U}/dL Normal 0.0 - 1.0 EU/dL [facility] UA Auto SS WBC Auto Ql (U) Negative (05/01/22 5:20 PM) Normal Negative [facility] UA Auto SS WBC LM.HPF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 Discharge instructions were reviewed. Pt walks off unit without any notable signs or symtpoms of distress. 08-13-2022 19:45-0400 Hourly Rounding Luis Carlos Jung [facility] 08-13-2022 19:45-0400 Hourly Rounding Luis Carlos Jung [facility] Comment on above: Result Comment: Patient sitting in bed. BPP results reviewed with patient. Pt denied any additional questions. Call light within reach. 08-13-2022 18:12-0400 Heart rate 88 /min Luis Carlos Jung [facility] 08-13-2022 18:12-0400 Nursing Progress Note Reason Other: Pt updated on orders received from . amandaalizes understanding Luis Carlos Jung [facility] 08-13-2022 18:12-0400 SaO2% (BldA) [Mass fraction] 99 % [facility] 08-13-2022 17:33-0400 Body temperature 97.88 [degF] Luis Carlos Jung [facility] 08-13-2022 17:33-0400 Diastolic blood pressure 72 mm[Hg] Luis Carlos Jung [facility] 08-13-2022 17:33-0400 Mean blood pressure 88 mm[Hg] Luis Carlos Jung [facility] 08-13-2022 17:33-0400 Respiratory rate 18 /min Luis Carlos Jung [facility] 08-13-2022 17:33-0400 Systolic blood pressure 121 mm[Hg] Luis Carlos Jung [facility] 07-26-2022 10:22-0400 Hourly Rounding Luis Carlos Jung [facility] Comment on above: Result Comment: discharge instructions p rovided and pt signs discharge consent with RN witness. pt preparing for discharge, belly band placed on pt. RN offers wheelchair exit for discharge and pt declines and wants to walk down on own. 07-26-2022 10:22-0400 Promise to Return Luis Carlos Jung [facility] 07-26-2022 10:00-0400 Hourly Rounding Luis Carlos Jung [facility] 07-26-2022 10:00-0400 Promise to Return Luis Carlos Jung [facility] 07-26-2022 09:15-0400 Blood Pressure Location Luis Carlos Jung [facility] 07-26-2022 09:15-0400 Body temperature 97.7 [degF] Luis Carlos Jung [facility] 07-26-2022 09:15-0400 Diastolic blood pressure 62 mm[Hg] Luis Carlos Jung [facility] 07-26-2022 09:15-0400 Heart rate 70 /min Luis Carlos Jung [facility] 07-26-2022 09:15-0400 Hourly Rounding Luis Carlos Jung [facility] 07-26-2022 09:15-0400 Mean blood pressure 74 mm[Hg] Luis Carlos Jung [facility] 07-26-2022 09:15-0400 Respiratory rate 18 /min Luis Carlos Jung [facility] 07-26-2022 09:15-0400 Systolic blood pressure 97 mm[Hg] Luis Carlos Jung [facility] 07-26-2022 09:00-0400 Promise to Return Luis Carlos Jung [facility] 07-26-2022 08:14-0400 Body temperature 98.06 [degF] Luis Carlos Jung [facility] 07-26-2022 08:14-0400 Diastolic blood pressure 66 mm[Hg] Luis Carlos Jung [facility] 07-26-2022 08:14-0400 Heart rate 81 /min Luis Carlos Jung [facility] 07-26-2022 08:14-0400 Mean blood pressure 80 mm[Hg] Luis Carlos Jung [facility] 07-26-2022 08:14-0400 Respiratory rate 18 /min Luis Carlos Jung [facility] 07-26-2022 08:14-0400 Systolic blood pressure 109 mm[Hg] Luis Carlos Jung [facility] 07-17-2022 09:07-0400 Body temperature 97.88 [degF] Ko Dumas [facility] 07-17-2022 09:07-0400 Diastolic blood pressure 74 mm[Hg] Ko Dumas [facility] 07-17-2022 09:07-0400 Heart rate 85 /min Ko Dumas [facility] 07-17-2022 09:07-0400 Respiratory rate 16 /min Ko Dumas [facility] 07-17-2022 09:07-0400 SaO2% (BldA) [Mass fraction] 100 % Ko Dumas [facility] 07-17-2022 09:07-0400 Systolic blood pressure 117 mm[Hg] Ko Dumas [facility] 06-26-2022 21:38-0400 Blood Pressure Location Luis Carlos Fabiana [facility] 06-26-2022 21:38-0400 Diastolic blood pressure 61 mm[Hg] Luis Carlos Fabiana [facility] 06-26-2022 21:38-0400 Heart rate 83 /min Luis Carlos Montesinosten [facility] 06-26-2022 21:38-0400 Hourly Rounding Luis Carlos Jung [facility] Comment on above: Result Comment: discharged ambulatory to po 06-26-2022 21:38-0400 Mean blood pressure 75 mm[Hg] Luis Carlos Fabiana [facility] 06-26-2022 21:38-0400 Respiratory rate 16 /min Luis Carlos Montesinosten [facility] 06-26-2022 21:38-0400 Systolic blood pressure 102 mm[Hg] Luis Carlos Fabiana [facility] 06-26-2022 21:15-0400 Blood Pressure Location Luis Carlos Fabiana [facility] 06-26-2022 21:15-0400 Diastolic blood pressure 64 mm[Hg] Luis Carlos Montesinosten [facility] 06-26-2022 21:15-0400 Heart rate 74 /min Luis Carlos Montesinosten [facility] 06-26-2022 21:15-0400 Hourly Rounding Luis Carlos Jung [facility] 06-26-2022 21:15-0400 Mean blood pressure 78 mm[Hg] Luis Carlos Fabiana [facility] 06-26-2022 21:15-0400 Respiratory rate 16 /min Luis Carlos Montesinosten [facility] 06-26-2022 21:15-0400 Systolic blood pressure 106 mm[Hg] Luis Carlos Fabiana [facility] 06-26-2022 21:05-0400 Body temperature 97.88 [degF] Luis Carlos Jung [facility] 06-26-2022 21:05-0400 Respiratory rate 18 /min Luis Carlos Jung [facility] 06-26-2022 21:00-0400 Hourly Rounding Luis Carlos Jung [facility] Comment on above: Result Comment: ice water given 06-19-2022 01:30-0400 Hourly Rounding Luis Carlos Jung [facility] Comment on above: Result Comment: updated on plan of care after speaking to dr jung. verb understanding and all d/c instructions provided. denies further needs/concerns. ambulates off unit without any further questions. 06-19-2022 01:00-0400 Hourly Rounding Luis Carlos Jung [facility] Comment on above: Result Comment: rests in bed on phone. d enies any needs. denies any pain at this time or any pain or cramping since arrival. call light within reach 06-19-2022 00:15-0400 Hourly Rounding Luis Carlos Jung [facility] 06-18-2022 23:54-0400 Body temperature 97.88 [degF] Luis Carlos Jung [facility] 06-18-2022 23:54-0400 Diastolic blood pressure 65 mm[Hg] Luis Carlos Jung [facility] 06-18-2022 23:54-0400 Heart rate 76 /min Luis Carlos Jung [facility] 06-18-2022 23:54-0400 Mean blood pressure 81 mm[Hg] Luis Carlos Jung [facility] 06-18-2022 23:54-0400 Respiratory rate 18 /min Luis Carlos Jung [facility] 06-18-2022 23:54-0400 Systolic blood pressure 112 mm[Hg] Luis Carlos Jung [facility] 06-18-2022 23:45-0400 Blood Pressure Location Luis Carlos Jung [facility] 05-01-2022 17:45-0400 Hourly Rounding Luis Carlos Jung [facility] Comment on above: Result Comment: reviewed disch inst and meds to take states understanding 05-01-2022 17:30-0400 Hourly Rounding Luis Carlos Jung [facility] 05-01-2022 17:23-0400 Body temperature 98.06 [degF] Luis Carlos Jung [facility] 05-01-2022 17:23-0400 Diastolic blood pressure 57 mm[Hg] Luis Carlos Jung [facility] 05-01-2022 17:23-0400 Heart rate 83 /min Luis Carlos Jung [facility] 05-01-2022 17:23-0400 Mean blood pressure 71 mm[Hg] Luis Carlos Jung [facility] 05-01-2022 17:23-0400 Respiratory rate 16 /min Luis Carlos Jung [facility] 05-01-2022 17:23-0400 Systolic blood pressure 99 mm[Hg] Luis Carlos Jung [facility] 05-01-2022 17:15-0400 Blood Pressure Location Luis Carlos Jung [facility] 05-01-2022 17:15-0400 Hourly Rounding Luis Carlos Jung [facility] 04-02-2022 13:30-0400 Hourly Rounding Luis Carlos Jung [facility] Comment on above: Result Comment: pt given discharge instr uctions at this time to follow up with fabiana sunday or states understanding to call office tomorrow for appointment 04-02-2022 12:30-0400 Hourly Rounding Luis Carlos Jung [facility] Comment on above: Result Comment: pt returns to bed from r estroom at this time denies discomfort at this time 04-02-2022 11:30-0400 Hourly Rounding Luis Carlos Jung [facility] Comment on above: Result Comment: pt sitting in bed at thi s time denies needs or discomfort 04-02-2022 06:28-0400 Body temperature 99.68 [degF] Luis Carlos Fabiana [facility] 04-02-2022 06:28-0400 Diastolic blood pressure 68 mm[Hg] Luis Carlos Jung [facility] 04-02-2022 06:28-0400 Heart rate 89 /min Luis Carlos Jung [facility] 04-02-2022 06:28-0400 Heart rate 86 /min Luis Carlos Jung [facility] 04-02-2022 06:28-0400 Mean blood pressure 83 mm[Hg] Luis Carlos Fabiana [facility] 04-02-2022 06:28-0400 Respiratory rate 20 /min Luis Carlos Jung [facility] 04-02-2022 06:28-0400 SaO2% (BldA) [Mass fraction] 98 % Luis Carlos Jung [facility] 04-02-2022 06:28-0400 Systolic blood pressure 114 mm[Hg] Luis Carlos Fabiana [facility] 03-23-2022 21:08-0400 Hourly Rounding Luis Carlos Jung [facility] Comment on above: Result Comment: Patient ambulatory off u nit. No signs or symptoms of distress noted. 03-23-2022 20:35-0400 Hourly Rounding Luis Carlos Jung [facility] Comment on above: Result Comment: Patient updated on plan of care. Verbalizes understanding. Call light in reach. 03-23-2022 19:49-0400 Blood Pressure Location Luis Carlos Jung [facility] 03-23-2022 19:49-0400 Body temperature 98.78 [degF] Luis Carlos Jung [facility] 03-23-2022 19:49-0400 Diastolic blood pressure 66 mm[Hg] Luis Carlos Jung [facility] 03-23-2022 19:49-0400 Heart rate 69 /min Luis Carlos Jung [facility] 03-23-2022 19:49-0400 Hourly Rounding Luis Carlos Jung [facility] Comment on above: Result Comment: Patient arrives on unit. 03-23-2022 19:49-0400 Mean blood pressure 79 mm[Hg] Luis Carlos Jung [facility] 03-23-2022 19:49-0400 Respiratory rate 16 /min Luis Carlos Jung [facility] 03-23-2022 19:49-0400 Systolic blood pressure 106 mm[Hg] Luis Carlos Jung [facility] 10-14-2020 13:15-0500 Pulse (Heart Rate) 74 /min Regine [facility] 10-14-2020 13:15-0500 Pulse Oximetry 98 % [facility] 10-14-2020 13:15-0500 Respiratory Rate 16 /min [facility] 10-14-2020 13:00-0500 BP Diastolic 74 mm[Hg] [facility] 10-14-2020 13:00-0500 BP Systolic 123 mm[Hg] [facility] 10-14-2020 10:13-0500 BMI (Body Mass Index) 34.33 kg/m2 [facility] 10-14-2020 10:13-0500 Body Temperature 97.81 [degF] [facility] 10-14-2020 10:13-0500 Body weight 90.72 kg [facility] 10-14-2020 10:13-0500 Height 162.6 cm [facility] 08-09-2020 20:33-0400 BP Diastolic 81 mm[Hg] [place] 08-09-2020 20:33-0400 BP Systolic 122 mm[Hg] [place] 08-09-2020 20:33-0400 Pulse (Heart Rate) 78 /min [place] 08-09-2020 20:33-0400 Respiratory Rate 16 /min [place] 08-09-2020 19:03-0400 BMI (Body Mass Index) 39.48 kg/m2 [place] 08-09-2020 19:03-0400 Body Temperature 98.29 [degF] [place] 08-09-2020 19:03-0400 Body weight 104.33 kg [place] 08-09-2020 19:03-0400 Height 162.6 cm [place] 08-09-2020 19:03-0400 Pulse Oximetry 98 % [place] Encounters Encounter Date Encounter Type Care Provider Facility Start: 10-18-2023 End: 10-18-2023 ambulatory DODIE MILLER Not Available Start: 10-03-2023 End: 10-03-2023 ambulatory DODIE MILLER Not Available Start: 09-12-2023 End: 09-12-2023 ambulatory RASHAUN PURVIS Not Available Start: 08-23-2023 End: 08-23-2023 Lab Drop off ZORAN J ELEN [facility] Start: 08-23-2023 End: 08-24-2023 ambulatory TELEVISION SERVICER ZORAN J ELEN Facility:[facility] Start: 08-19-2023 End: 09-14-2023 Pre-admission assessment Julia Gonsalez Isaiahdax [facility] Start: 08-18-2023 End: 08-18-2023 ambulatory DO Julia Gonsalez Isaiahkristina Facility:[facility] Start: 08-18-2023 End: 08-18-2023 OB Triage Julia Gonsalez Andry [facility] Start: 07-25-2023 End: 07-25-2023 Emergency department patient visit Kristian Guillermo Facility:[facility] Start: 07-25-2023 End: 07-25-2023 Emergency department patient visit Kristian Guillermo [facility] Start: 06-28-2023 End: 06-29-2023 ambulatory Roverto Crow. Spasic Facility:[facility] Start: 06-28-2023 End: 06-28-2023 Patient encounter procedure Roverto V. Spasic [facility] Start: 06-14-2023 End: 06-14-2023 Emergency department patient visit Kristian Guillermo Facility:[facility] Start: 06-14-2023 End: 06-14-2023 Emergency department patient visit Kristian Guillermo [facility] Start: 06-12-2023 End: 06-13-2023 ambulatory Luis Carlos Jung Facility:[facility] Start: 06-12-2023 End: 06-12-2023 Patient encounter procedure Luis Carlos Jung [facility] Start: 05-21-2023 End: 05-22-2023 Emergency department patient visit DO Gopi Rodriguez Facility:[facility] Start: 05-21-2023 End: 05-21-2023 Emergency department patient visit Gopi Rodriguez [facility] Start: 04-30-2023 End: 05-01-2023 ambulatory Luis Carlos Montesinosten Facility:[facility] Start: 04-30-2023 End: 04-30-2023 Lab Drop off Luis Carlos Rochelle Jung [facility] Start: 04-30-2023 End: 05-01-2023 ambulatory Luis Carlos Byrd Fabiana Facility:[facility] Start: 04-30-2023 End: 04-30-2023 Patient encounter procedure Luis Carlos Rochelle Jung [facility] Start: 04-26-2023 End: 04-26-2023 Emergency department patient visit Laura Noel Facility:[facility] Start: 04-26-2023 End: 04-26-2023 Emergency department patient visit Laura Sotelorob [facility] Start: 01-31-2023 End: 01-31-2023 Emergency department patient visit Kristian Guillermo Facility:[facility] Start: 01-31-2023 End: 01-31-2023 Emergency department patient visit Kristian Guillermo [facility] Start: 09-24-2022 End: 09-27-2022 Evaluation and management of inpatient Luis Carlos Jung Facility:[facility] Start: 09-22-2022 End: 09-22-2022 ambulatory Luis Carlos Jung Facility:[facility] Start: 09-22-2022 End: 09-22-2022 OB Triage Luis Carlos Jung [facility] Start: 09-20-2022 End: 09-20-2022 ambulatory Luis Carlos Jung Facility:[facility] Start: 09-20-2022 End: 09-20-2022 OB Triage Luis Carlos Jung [facility] Start: 09-19-2022 End: 09-19-2022 ambulatory Jj MIKE Facility:[facility] Start: 09-19-2022 End: 09-19-2022 OB Triage Jj MIKE [facility] Start: 09-14-2022 End: 09-14-2022 ambulatory Luis Carlos Rochelle Jung Facility:[facility] Start: 09-14-2022 Emergency department patient visit DO Carrolemilee vani Facility:[facility] Start: 09-14-2022 End: 09-14-2022 OB Triage Luis Carlos Jung [facility] Start: 09-12-2022 End: 09-12-2022 ambulatory Luis Carlos Jung Facility:[facility] Start: 09-12-2022 End: 09-12-2022 OB Triage Luis Carlos Jung [facility] Start: 09-08-2022 End: 09-08-2022 ambulatory Luis Carlos Jung Facility:[facility] Start: 09-08-2022 End: 09-08-2022 OB Triage Luis Carlos Jung [facility] Start: 09-06-2022 End: 12-06-2022 ambulatory Luis Carlos Rochelle Jung Facility:[facility] Start: 09-05-2022 End: 09-06-2022 Emergency department patient visit DO Miladysnadia White vani Facility:[facility] Start: 09-05-2022 End: 09-05-2022 Emergency department patient visit Gopi Rodriguez [facility] Start: 09-05-2022 End: 12-05-2022 Patient encounter procedure SELF REFERRAL [facility] Start: 09-04-2022 End: 09-05-2022 ambulatory Luis Carlos Byrd Fabiana Facility:[facility] Start: 09-04-2022 End: 09-04-2022 Lab Drop off Luis Carlos Rochelle Jung [facility] Start: 08-30-2022 End: 08-31-2022 ambulatory Luis Carlos Byrd Fabiana Facility:[facility] Start: 08-30-2022 End: 08-31-2022 OB Triage Luis Carlos Byrd Fabiana [facility] Start: 08-22-2022 End: 08-22-2022 OB Triage Luis Carlos Rochelle Jung [facility] Start: 08-18-2022 End: 08-18-2022 OB Triage Luis Carlos Byrd Fabiana [facility] Start: 08-13-2022 End: 08-13-2022 OB Triage Luis Carlos Byrd Fabiana [facility] Start: 07-26-2022 End: 07-26-2022 OB Triage Luis Carlos Byrd Fabiana [facility] Start: 07-17-2022 End: 07-17-2022 Emergency department patient visit Ko Dumas [facility] Start: 06-28-2022 End: 06-28-2022 Patient encounter procedure Luis Carlos Jung [facility] Start: 06-26-2022 End: 06-26-2022 OB Triage Luis Carlos Jung [facility] Start: 06-20-2022 End: 07-15-2022 Pre-admission assessment Luis Carlos Jung [facility] Start: 06-18-2022 End: 06-19-2022 OB Triage Luis Carlos Jung [facility] Start: 05-02-2022 End: 06-15-2022 Pre-admission assessment THANG MILLAN [facility] Start: 05-01-2022 End: 05-01-2022 OB Triage Luis Carlos Jung [facility] Start: 04-02-2022 End: 04-02-2022 OB Triage Luis Carlos Jung [facility] Start: 03-23-2022 End: 03-23-2022 OB Triage Luis Carlos Jung [facility] Start: 03-16-2022 End: 03-16-2022 Patient encounter procedure Luis Carlos Rochelle Jung [facility] Start: 02-15-2022 End: 02-15-2022 Lab Drop off Luis Carlos Byrd Fabiana [facility] Start: 02-23-2021 End: 02-23-2021 Patient encounter procedure Martha Webb MD Work Phone: [facility] Start: 02-23-2021 Results Only Martha Webb MD Work Phone: Gastroenterology Start: 10-14-2020 End: 10-14-2020 Emergency department patient visit PHYSICIAN NO [facility] Start: 10-14-2020 End: 10-14-2020 Emergency department patient visit Regine Chow Work Phone: [facility] Comment on above: Vertigo (Primary Dx) Start: 08-09-2020 End: 08-09-2020 Emergency department patient visit [facility] Start: 08-09-2020 End: 08-09-2020 Emergency department patient visit [facility] Work Phone: [facility] ED Comment on above: Contusion of right k nee, initial encounter (Primary Dx); Contusion of multiple sites of right shoulder and upper arm, initial encounter Start: 07-23-2017 End: 07-23-2017 Emergency department patient visit NKECHI TORRES [facility]erra Procedures Date Procedure Procedure Detail Performing [...] 05-12-2028 Tetanus vaccination Tetanus: Every 1 0yrs [facility] Start: 06-15-2021 Influenza vaccination INFLUENZ A (Season Ended) [facility] Start: 06-15-2020 Influenza vaccination Flu vaccine (# 1) [place], [place] Start: 2014 PAP TESTING PAP TESTING [facility] Start: 2014 Screening for malign ant neoplasm of cervix Cervical cancer screen [place], [place] Start: 2012 DTaP/Tdap/Td vaccine (1 - Tdap) DTaP/Tdap/Td vaccine (1 - Tdap) [place] Start: 2012 Urine microalbumin profile DTAP,TDAP,TD (1 - Tdap) [facility] Start: 2011 Hepatitis C antibody , confirmatory test Hepatitis C Screening [facility] Start: 2011 HEPATITIS C SCREENING HEPATITIS C SC REENING [facility] Start: 2011 HIV SCREENING HIV SCREENING [facility] Start: 2008 [facility] [place] [place] Start: 2005 Adolescent depressio n screening assessment [facility] Start: 2004 HPV vaccine (1 - 2-d ose series) HPV vaccine (1 - 2-dose series) [place] Start: 1996 History and physical examination, annual for health maintenance Wellness Visit [facility] Start: 1994 Varicella vaccine (1 of 2 - 2-dose childhood series) Varicella vaccine (1 of 2 - 2-dose childhood series) [place] Start: 1993 Screening for malign ant neoplasm of cervix Pap Smear [facility] PT ED PATIENT INFORMATION PT ED PATIENT INFORMATION Other 02/23/2021 [facility] Immunizations Immunization Date Immunization Notes Care Provider Lennox ramirez 08-18-2023 influenza, seasonal, injectable Julia Haywood [facility] 09-25-2022 influenza, seasonal, injectable SELF REFERRAL [facility] Comment on above: Early/Late Reason: E isaac/Late Reason: Nursing Judgment 01-28-2021 COVID-19, mRNA, LNP- S, PF, 30 mcg/0.3 mL dose; Translations: [[employer] COVID-19 Vaccine] Luis Carlos Jung [facility] Comment on above: Reason for Medicatio n: Prophylaxis Reason for Medicatio n: Prophylaxis 12-31-2020 COVID-19, mRNA, LNP- S, PF, 30 mcg/0.3 mL dose; Translations: [[employer] COVID-19 Vaccine] Luis Carlos Jung [facility] Comment on above: Reason for Medicatio n: Prophylaxis Reason for Medicatio n: Prophylaxis 05-12-2018 tetanus toxoid, reduced diphtheria toxoid, and acellular pertussis vaccine, adsorbed; Translations: [Adacel (Tdap)] Luis Carlos Jung [facility] Payers Date Payer Category Payer Unknown [id number] 2019 Unknown [id number]. [id number] 1993 Unknown [id number] 2.16.8 40.1.412922.3.579.2.173 1993 Unknown [id number] 2.16. 840.1.480486.3.579.2.903 1993 Unknown [id number] 2.16.8 40.1.961513.3.579.2.727 1993 Unknown [id number] 2.16.8 40.1.201188.3.579.2.727 1993 Unknown [id number] 2.16.8 40.1.423374.3.579.2.727 1993 Unknown [id number] 2.16.8 40.1.541807.3.579.2.727 1993 Unknown [id number] 2.16.8 40.1.565099.3.579.2.727 1993 Unknown [id number] 2.16.8 40.1.946118.3.579.2.727 1993 Unknown [id number] 2.16.8 40.1.359272.3.579.2.727 1993 Unknown [id number] 2.16.8 40.1.113809.3.579.2.72 1993 Unknown [id number] 2.16.8 40.1.876629.3.579.2.72 1993 Unknown [id number] 2.16.8 40.1.479616.3.579.2. 1993 Unknown [id number] 2.16.8 40.1.336726.3.579.2. 1993 Unknown [id number] 2.16.8 40.1.580160.3.579.2. 1993 Unknown [id number] 2.16.8 40.1.124890.3.579.2. 1993 Unknown [id number] 2.16.8 40.1.563657.3.579.2. 1993 Unknown [id number] 2.16.8 40.1.541657.3.579.2. 1993 Unknown [id number] 2.16.8 40.1.114419.3.579.2. 1993 Unknown [id number] 2.16.8 40.1.246173.3.579.2 1993 Unknown [id number] 2.16.8 40.1.845339.3.579.2. 1993 Unknown [id number] 2.16.8 40.1.799376.3.579.2. 1993 Unknown [id number] 2.16.8 40.1.038035.3.579.2. 1993 Unknown [id number] 2.16.8 40.1.648554.3.579.2. 1993 Unknown [id number] 2.16.8 40.1.912882.3.579.2. 1993 Unknown [id number] 2.16.8 40.1.755972.3.579.2.72 1993 Unknown [id number] 2.16.8 40.1.854901.3.579.2.727 1993 Unknown [id number] 2.16.840 .1.541841.3.579.2.1259 1993 Unknown [id number] 2.16.840 .1.850393.3.579.2.1259 1993 Unknown [id number] 2.16.840 .1.317963.3.579.2.1259 1993 Unknown [id number] 2.16.840 .1.708247.3.579.2.1259 Social History Date Type Detail Facility Start: 08-09-2020 End: 10-14-2020 Tobacco smoking status NHIS Current every day smoker [place] Start: 08-09-2020 End: 10-14-2020 Tobacco use and exposure Never used [place] Start: 10-14-2020 Alcohol intake Ex-drinker (finding) [facility] Start: 1995 Sex Assigned At Not on file [place] Exposure to SARS-CoV -2 (event) Not sure [place] Start: 08-09-2020 Cigarettes smoked current (pack per day) - Reported [place] Start: 08-09-2020 Alcohol intake Lifetime non-d val (finding) [place] Start: 08-09-2020 History SDOH Alcohol Frequency 1 [place] Start: 07-06-2021 End: 08-18-2022 Tobacco smoking status Light tobacco smoker (finding) [facility] Sex Assigned At Female [facility] Tobacco [facility] Comment on above: current current denies Start: 06-28-2023 Tobacco smoking status Ex-smoker (fi nding) [facility] Comment on above: current Tobacco smoking status Never [facility] Comment on above: current Tobacco smoking status No Smokin g Status Entered [facility] Functional Status Date Assessment Result Facility 08-18-2023 Functional Status N/A [facility] 07-25-2023 Functional Status N/A [facility] 06-28-2023 Functional Status N/A [facility] 06-14-2023 Functional Status N/A [facility] 05-21-2023 Functional Status N/A [facility] 04-26-2023 Functional Status N/A [facility] 01-31-2023 Functional Status N/A [facility] 09-22-2022 Functional Status N/A [facility] 09-20-2022 Functional Status N/A [facility] 09-19-2022 Functional Status N/A [facility] 09-14-2022 Functional Status N/A [facility] 09-12-2022 Functional Status N/A [facility] 09-08-2022 Functional Status N/A [facility] 09-05-2022 Functional Status Yes [facility] 08-30-2022 Functional Status N/A [facility] 08-22-2022 Functional Status N/A [facility] 08-18-2022 Functional Status N/A [facility] 08-13-2022 Functional Status N/A [facility] 07-26-2022 Functional Status N/A [facility] 07-17-2022 Functional Status N/A [facility] 06-26-2022 Functional Status N/A [facility] 06-18-2022 Functional Status N/A [facility] 05-01-2022 Functional Status N/A [facility] 04-02-2022 Functional Status N/A [facility] Clinical Notes 03-10-2021 to 08-23-2023 Note Date & Type Note Facility 08-23-2023 Evaluation + Plan note Diagnostic Tests PendingT3 Total 08/23/23 [facility] 08-18-2023 Note The following Patien t Education Materials have been given to the patient: Education[facility] 08-18-2023 Hospital Discharg e instructions Patient Education 08/18/2023 08:14:46 Second Trimester of , Opkw-we-Xpbv Second Trimester of The second trimester of [...] Follow these instructions at home: Medicines Take ykgi-ppw-jcgzqrt and prescription medicines only as told by [...] a counselor. Where to find more information Portuguese Association: americanpregnancy.org [employer]nec[employer]: www.acog.org Office [...] provider. Document Revised: 03/09/2021 Document Reviewed: 01/13/2021 [employer] Patient Education 2022 [employer]. [facility] 07-25-2023 Evaluation + Plan note Extrac francisca [...] Diagnostic Tests Pending * Urine Culture 07/25/23 [facility]10-11-2023 Hospital Discharge instructions Patient Education 07/25/2023 09:56:41 [...] to keep your urine pale yellow. Take tygy-egh-rzhlooz and prescription medicines only as told by [...] provider. Document Revised: 06/14/2021 Document Reviewed: 06/14/2021 [employer] Patient Education 2022 [employer]. Follow Up Care 07/25/2023 08:14:26 With:Luis Carlos Jung Address: [address] [address] [facility] (1) When:07/28/2023 09:56:27 [facility]09-14-2023 Evaluation + Plan note Diagnostic Tests Pending * Urine Culture 06/28/23 [facility]09-14-2023 Hospital Discharge instructions Patient Education 06/28/2023 11:39:14 Urinary Tract Infection, Adult, Hdhx-mn-Emfp Urinary Tract Infection, Adult A urinary tract [...] Follow these instructions at home: Medicines Take kfgu-yny-qndvdvq and prescription medicines only as told by [...] provider. Document Revised: 05/13/2021 Document Reviewed: 05/13/2021 [employer] Patient Education 2022 [employer]. 06/28/2023 11:39:14 Urinary Tract Infection, Adult, Nbyu-nx-Deeh Urinary Tract Infection, Adult A urinary tract [...] Follow these instructions at home: Medicines Take zjqc-sne-odektzn and prescription medicines only as told by [...] provider. Document Revised: 05/13/2021 Document Reviewed: 05/13/2021 [employer] Patient Education 2022 [employer]. Follow Up Care 06/28/2023 10:22:58 With:Fabiana MARION, Luis Carlos Byrd, SAMPSON Address: [facility] [address] [id number]- When: Unknown [facility] 08-31-2023 Evaluation + Plan noteExtracted from: Title:ED Note Author:Jos Ugalde PA-C te:06/14/23 1. Abdominal pain (R10.9: Un specified abdominal pain) Orders: ABO/Rh Automated Diff Basic Metabolic Panel Beta hCG Quantitative CBC w/ Auto Diff eGFR Extra Blue Tube Extra SST Tube Hepatic Function Panel Lipase Level UA With Cult Reflex US 1st Trimester [facility]08-08-2023 Hospital Discharge instructions Patient Education 05/21/2023 23:23:44 Nonspecific Chest Pain, Adult, Ysyf-kf-Aqvd Nonspecific Chest Pain Chest pain can be [...] Follow these instructions at home: Medicines Take kxpc-hoc-evywegb and prescription medicines only as told by [...] ?Eating a heart-healthy diet. A diet and transitional living specialist (dietitian) can help you to learn healthy [...] provider. Document Revised: 12/15/2021 Document Reviewed: 12/15/2021 [employer] Patient Education 2022 [employer]. 05/21/2023 23:23:44 Nausea and Vomiting, Adult, Wzqw-lb-Frok Nausea and Vomiting, Adult Nausea is feeling [...] fruit juice). ?Low-calorie sports drinks. Eat bland, pwaj-nb-mkmime foods in small amounts as you are able, such as: ?Bananas. ?Applesauce. ?Rice. ?Low-fat (lean) meats. ?[employer]. ?Crackers. Avoid drinking fluids that have a lot of sugar or caffeine in them. This includes energy drinks, sports drinks, and soda. Avoid alcohol. Avoid spicy or fatty foods. General instructions Take eksd-lyc-gddoveu and prescription medicines only as told by your doctor. Drink enough fluid to keep your pee (urine) pale yellow. Wash your hands often with soap and water for at least 20 seconds. If you cannot use soap and water, use hand instructional technology coach. Make sure that everyone in your home [...] your doctor about eating and drinking. Take vyry-euz-bsnkiav and prescription medicines only as told by your doctor. Contact your doctor if your symptoms get worse or you have new symptoms. Keep all follow-up visits. This information is not intended to replace advice given to you by your health care provider. Make sure you discuss any questions you have with your health care provider. Document Revised: 04/07/2022 Document Reviewed: 04/07/2022 [employer] Patient Education 2022 [employer]. 05/21/2023 23:23:44 Abdominal Pain During , Atmy-ej-Nsvm Abdominal Pain During Belly (abdominal) pain is [...] keep your pee (urine) pale yellow. Take dbfg-jjj-boqsiho and prescription medicines only as told by [...] provider. Document Revised: 06/14/2021 Document Reviewed: 06/14/2021 [employer] Patient Education 2022 [employer]. Follow Up Care 05/21/2023 20:38:52 With:Luis Carlos Jung Address: [address], [facility] [place] [address]- Business (1) When:05/24/2023 Comments:Take the Pepcid once daily until you have completed the course. You can use the Zofran every 6 hours as needed for nausea and vomiting. Please follow-up with your primary care doctor next 2 to 3 days. Please return to the ED for any new or worsening symptoms. [facility]08-07-2023 Evaluation + Plan noteExtracted from: Title:ED Note [...] day(s), # 15 cap(s), Refills(s) 0, Pharmacy: [facility], 162.6, cm, 05/21/23 20:50:00 EDT, Height/Length Dosing, 75.3, kg, 05/21/23 20:50:00 EDT, Weight Dosing famotidine, 20 mg = 2 mL, Soln-IV, IV Push, Once, Stop date 05/21/23 21:00:00 EDT, STAT, Start date 05/21/23 21:00:00 EDT, 05/21/23 21:00:00 EDT famotidine, 20 mg = 1 tab(s), Oral, Daily, # 14 tab(s), Refills(s) 0, Pharmacy: [facility], 162.6, cm, 05/21/23 20:50:00 EDT, Height/Length Dosing, 75.3, kg, 05/21/23 20:50:00 EDT, Weight Dosing ondansetron, 4 mg = 2 mL, Injection, IV Push, Once, Stop date 05/21/23 21:00:00 EDT, STAT, Start date 05/21/23 21:00:00 EDT, 05/21/23 21:00:00 EDT ondansetron, 4 mg = 1 tab(s), Oral, q8hr, # 12 tab(s), Refills(s) 0, Pharmacy: [facility], 162.6, cm, 05/21/23 20:50:00 [...] UA With Cult Reflex US 1st Trimester [facility]07-17-2023 Evaluation + Plan note Diagnostic Tests Pending * PAP [id number] 04/30/23 * Urine Culture 04/30/23 [facility]07-17-2023 Evaluation + Plan note Diagnostic Tests Pending * RPR with Conf Rfx 04/30/23 * HIV Screen 4th Generation wRfx 04/30/23 * Rubella Antibody IgG 04/30/23 * Hepatitis B Surface Antigen 04/30/23 [facility]07-13-2023 Evaluation + Plan noteExtracted from: Title:ED Note Author:Jos Ugalde PA-C te:04/26/23 Abdominal pain (R10.9: Unspe cified abdominal pain) (Z34.90: Encounter for supervision of normal , unspecified, unspecified trimester) Orders: Beta hCG Quantitative Extra Lav Tube Extra SST Tube US 1st Trimester US Transvaginal [facility]07-13-2023 Hospital Discharge instructions Patient Education 04/26/2023 11:11:44 [...] to keep your urine pale yellow. Take bjno-sta-xwxxzzs and prescription medicines only as told by [...] Document Reviewed: 06/14/2021 Elsevier Patient Education 2022 Sk[employer]-Life. Follow Up Care 04/26/2023 08:52:22 With:Luis Carlos Jung Address: [address], [facility] [place] [address] Business (1) When:04/29/2023 10:58:02 [facility]04-19-2023 Evaluation + Plan noteExtracted from: Title:ED Note [...] Head eGFR Oxygen Therapy PT & PTT [facility]04-19-2023 Hospital Discharge instructions Patient Education 01/31/2023 11:57:21 [...] Follow these instructions at home: Medicines Take mpxk-pei-hikaads and prescription medicines only as told by your health care provider. Ask your health care provider if the medicine prescribed to you: ?Requires you to avoid driving or using heavy machinery. ?Can cause constipation. You may need to take these actions to prevent or treat constipation: ?Drink enough fluid to keep your urine pale yellow. ?Take hnem-cgg-jtrfuyz or prescription medicines. ?Eat foods that are [...] provider. Document Revised: 01/23/2020 Document Reviewed: 11/13/2019 [employer] Patient Education 2022 [employer]Life. Follow Up Care 01/31/2023 09:42:02 With:THANG MILLAN Address: [address] [place], [place] [id number] [facility] (1) When:02/03/2023 11:57:07 Comments:Call the office of [...] fever, or any new or worsening symptoms. [facility]12-16-2022 [facility] Comment: Electronically Signed By: Luis Carlos Jung MD\.br\Date and Time Signed: 09/29/22 09:25 [id number] [facility] Comment on above:Result Comment: Electronically Signed By: Luis Carlos Jung MD\.br\Date and Time Signed: 09/29/22 09:25 [id number] NoteThe following Patient Education Materials have been given to the patient: [facility]12-09-2022 NoteThe following Patient Education Materials have been given to the patient: [facility]12-09-2022 Hospital Discharge instructions Follow Up Care 09/22/2022 15:11:14 With:Luis Carlos Jung Address: [address] [place] [id number] Business (1) When:09/24/2022 20:30:00 Comments:Appointment has already been scheduledCall for any problems.Call for fever > 100.5 FCall for severe abdominal painCall physician for heavy vaginal bleedingCall physician if symptoms worsenReturn for contractions closer, longer, harderReturn for decreased movementReturn if ruptured membranes or vaginal bleedingCall at 7:30 pm Sunday to confirm induction at 8:30 [facility]12-07-2022 NoteThe following Patient Education Materials have been given to the patient: [facility]12-06-2022 NoteThe following Patient Education Materials have been given to the patient: [facility]12-06-2022 Hospital Discharge instructions Follow Up Care 09/19/2022 01:24:08 With:Luis Carlos Jung Address: [address] [place] [address], [facility] [address] [place] [address] Business (1) When:09/20/2022 Comments:Appointment has already been scheduledCall Dr if fever>100.5 F, heavy bleedingCall for any problems.Call for severe abdominal painCall physician for heavy vaginal bleedingCall physician if symptoms worsenReturn for contractions closer, longer, harderPlease call if you need to rescheduleReturn for decreased movementReturn if ruptured membranes or vaginal bleeding [facility]12-01-2022 NoteThe following Patient Education Materials have been given to the patient: EducationMateriTiffanie [facility]12-01-2022 Hospital Discharge instructions Patient Education 09/14/2022 11:56:10 Sinus Headache, Rcyp-bc-Cyag Sinus Headache A sinus headache happens when [...] on the bottle or box. Medicines Take qbyj-rop-vngvbsv and prescription medicines only as told by [...] face, forehead, ears, or upper teeth. Take xkcw-jun-cfvxlrg and prescription medicines only as told by your doctor. If told, apply a warm, moist washcloth to your face. This can help to lessen pain. This information is not intended to replace advice given to you by your health care provider. Make sure you discuss any questions you have with your health care provider. Document Released: 01/31/2012 Document Revised: 09/13/2018 Document Reviewed: 07/12/2018 [employer] Patient Education 2020 [employer] Follow Up Care 09/14/2022 09:13:06 With:Luis Carlos Jung Address: [address] [place] [address] [place], [place] [id number] [facility] (1) When:09/20/2022 Comments:Return if ruptured membranes or vaginal bleedingReturn for decreased movementReturn for contractions closer, longer, harderCall physician if symptoms worsenCall for severe abdominal painCall for fever > 100.5 F Drink 8-10 glasses of water/day Use SUDAFED, TYLENOL AND BENADRYL as previouslydirected by Dr Fabiana Longoria [facility]11-29-2022 NoteThe following Patient Education Materials have been given to the patient: [facility] Hospital Discharge instructions Patient Education 09/12/2022 20:39:28 Third Trimester of , Vciq-te-Txla Third Trimester of The third trimester is from week 28 through week 40 (months 7 through 9). This trimester is when your unborn baby (fetus) is growing very fast. At the end of the ninth month, the unborn baby is about20 inches in length. It weighs about 6 10 pounds. Follow these instructions at home: Medicines Take ldkt-lxn-oxuvdqx and prescription medicines only as told by [...] 12/26/2010 Document Revised: 01/22/2020 Document Reviewed: 11/06/2017 [employer] Patient Education 2019 [employer]Life. Follow Up Care 09/12/2022 19:44:10 With:Luis Carlos Jung Address: [address] [facility] [address] [place] [address]- Business (1) When:09/20/2022 Comments:Appointment has already been scheduledCall Dr if fever>100.5 F, heavy bleedingCall for any problems.Call for severe abdominal painCall physician for heavy vaginal bleedingCall physician if symptoms worsenPlease call if you need to rescheduleReturn for contractions closer, longer, harderReturn for decreased movementReturn if ruptured membranes or vaginal bleeding [facility]11-25-2022 NoteThe following Patient Education Materials have been given to the patient: [facility]11-25-2022 Hospital Discharge instructions Follow Up Care 09/08/2022 08:14:23 With:Luis Carlos Jung Address: [address], [facility] [address] [place] [address]- Business (1) When:09/11/2022 Comments:Return for contractions closer, longer, harderReturn for decreased movementReturn if rupturedmembranes or vaginal bleeding [facility]11-23-2022 Hospital Discharge instructions Patient Education 09/05/2022 22:13:40 [...] the coronavirus come from? In September 2019, [place] told the World Health Organization (WHO) of several cases of lung disease (human respiratory illness). These cases were linked to an open seafood and livestock market in the [facility]. The link to the seafood and livestock [...] and virus naming World Health Organization (WHO): www.who.int/emergencies/diseases/ndzvp-hvfohpqvfks-3232/technical-g uidance/fhredc-uma-rkainnkteki-disease-(covid-2019)-oto-oeu-ppptn-anoj-pyxsto-xn Who is at risk for complications from [...] relieve his or her symptoms by using hinu-aik-yxwrrxe medicines that treat sneezing, coughing, and runny [...] water are not available, use alcohol-based hand instructional technology coach. Avoid touching your face, mouth, nose, or [...] Prevention (CDC): www.cdc.gov/coronavirus/2019-ncov/travelers/index.html World Health Organization (WHO): www.who.int/emergencies/diseases/dpvze-sqoqwvozfah-6072/travel-advice Know the risks and take action to [...] water are not available, use alcohol-based hand instructional technology coach. Cough or sneeze into a tissue, sleeve, [...] in hot, soapy water or use a biazzi nitrator operator. Air-dry your dishes. Wash laundry in [...] Health Organization (WHO) Information and news updates: www.who.int/emergencies/diseases/rmjkv-bwhvxicuoph-6381 Coronavirus health topic: www.who.int/health-topics/coronavirus Questions and answers on COVID-19: www.who.int/news-room/q-a-detail/x-g-ysphdfooncsrv Global tracker: who.[employer] [place] [employer] (AAP) Information for families: www.healthychildren.org/Kosovan/health-issues/conditions/chest-lungs/Pages /1659-Qbfcd-Hmxgogwymky.aspx The coronavirus situation is changing rapidly. Check [...] 01/27/2020 Document Revised: 01/27/2020 Document Reviewed: 01/27/2020 [employer] Patient Education 2019 Sk[employer]Life. 09/05/2022 22:13:40 COVID-19 COVID-19 COVID-19 is a [...] to fight infection (immunocompromised). Live in a jail or long-term care facility. Have a long-term [...] managed at home with rest, fluids, and uwfk-eok-sgntrhg medicines. Treatment for a serious infection usually [...] are safe for you. General instructions Take chmh-run-pihtwnc and prescription medicines only as told by [...] high-risk areas and travel restrictions, check the [facility] travel website: wwwnc.cdc.gov/travel/notices If you live in, or must travel to, an area where COVID-19 is a risk, take precautions to avoid infection. ?Stay away from people who are sick. ?Wash your hands often with soap and water for 20 seconds. If soap and water are not available, usean alcohol-based hand instructional technology coach. ?Avoid touching your mouth, face, eyes, or [...] water are not available, use alcohol-based hand instructional technology coach. Stay away from other members of your [...] have a weak immunity, live in a jail, or have chronic disease. There is no [...] 11/06/2019 Document Revised: 02/26/2020 Document Reviewed: 11/06/2019 [employer] Patient Education 2019 [employer] Inc. Follow Up Care 09/05/2022 20:08:29 With:Luis Carlos Jung Address: [facility] [address] [address]- Business (1) When:09/08/2022 21:42:10 Comments:Use the albuterol inhaler 2 puffs every 4 hours for the next 2 to 3 days, you can use the Zofran every 6 hours as needed for nausea and vomiting. Please follow-up with your primary care doctor in thenext 2 to 3 days. Please return to the ED for any new or worsening symptoms. With:THANG MILLAN Address: [address] [place] [address] Business (1) When:09/08/2022 21:42:06 [facility]11-22-2022 Evaluation + Plan noteExtracted from: Title:ED Note [...] Nausea/Vomiting, # 12 tab(s), Refills(s) 0, Pharmacy: [facility], 163, cm, 09/05/22 20:14:00 [...] Therapy PT & PTT Rapid COVID Antigen ([facility]) Saline Lock Insert Troponin 0 Hr. XR Chest Single View Future Appointments Appointment Date:09/06/2022 07:00:00 AM Scheduled Provider: [facility] Type:Outpatient COVID Testing [facility]11-21-2022 Evaluation + Plan note Diagnostic Tests Pending * Group B Streptococcus colonization by PCR 09/04/22 [facility]11-17-2022 NoteThe following Patient Education Materials have been given to the patient: [facility] Dis[facility] instructions Patient Education 08/31/2022 00:56:47 Third Trimester of , Ohsq-vr-Xjdg Third Trimester of The third trimester is from week 28 through week 40 (months 7 through 9). This trimester is when your unborn baby (fetus) is growing very fast. At the end of the ninth month, the unborn baby is about20 inches in length. It weighs about 6 10 pounds. Follow these instructions at home: Medicines Take hefb-bvd-aldyglh and prescription medicines only as told by [...] 12/26/2010 Document Revised: 01/22/2020 Document Reviewed: 11/06/2017 [employer] Patient Education 2020 Sk[employer]-Life. Follow Up Care 08/30/2022 21:31:53 With:Luis Carlos Jung Address: [address] [address]- Business (1) When:09/04/2022 Comments:Call for any problems.Call for severe abdominal painCall physician for heavy vaginal bleedingReturnfor contractions closer, longer, harderReturn for decreased movementReturn if ruptured membranes or vaginal bleeding [facility]11-08-2022 Hospital Discharge instructions Follow Up Care 08/22/2022 14:58:59 With:Dr. 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 [facility]11-04-2022 Evaluation + Plan note Diagnostic Tests Pending * Urine Culture 08/18/22 [facility]11-04-2022 Hospital Discharge instructions Follow Up Care 08/18/2022 03:47:49 With:Luis Carlos Jung Address: [address] [address] [facility] (1) When:08/21/2022 08:45:00 Comments:Appointment has already been scheduled, please keep scheduled apptCall for any problems.Call physician if symptoms worsen [facility]10-30-2022 Hospital Discharge instructions Patient Education 08/13/2022 19:55:11 [...] 10/31/2007 Document Revised: 10/21/2019 Document Reviewed: 11/09/2016 [employer] Patient Education 2020 [employer] Inc. 08/13/2022 19:55:11 Monitoring Overview Monitoring Overview [...] 09/21/2003 Document Revised: 06/25/2018 Document Reviewed: 04/30/2017 [employer] Patient Education YaBattle Follow Up Care 08/13/2022 17:29:42 With:Luis Carlos Jung Address: [address] [address] [facility] (1) When:1 to 2 days Comments:Call for any problems.Return for contractions closer, longer, harderReturn for decreased movementReturn if ruptured membranes or vaginal bleeding [facility]10-13-2022 Hospital Discharge instructions Follow Up Care 07/27/2022 01:12:54 With:Dr. Jung [phone] Address:Unknown When:09/24/2022 20:30:00 Comments:Call for any problems.Return if ruptured membranes or vaginal bleedingReturn for decreased movementcontractions every 5 minutes lasting 45 seconds for an hourCall Sunday night at 7:30 PM to assure bed availability for induction [facility]10-12-2022 Hospital Discharge instructions Patient Education 07/26/2022 10:15:24 [...] Follow these instructions at home: Medicines Take athy-ovy-crdpiwc and prescription medicines only as told by [...] as fried or sweet foods. ?Take an ekoy-bdu-lrdmrxj or prescription medicine for constipation. If you [...] 12/28/2009 Document Revised: 05/28/2019 Document Reviewed: 11/11/2018 [employer] Patient Education YaBattle Follow Up Care 07/26/2022 07:56:25 With:Luis Carlos Jung Address: [address], [place] [phone] Business (1) When:08/07/2022 07:45:00 [facility]10-03-2022 Evaluation + Plan noteExtracted from: Title:ED Note Author:Hi Carmona PA-C te:07/17/22 UTI (urinary tract infection ) (N39.0: Urinary tract infection, site not specified) Orders: cephalexin, 500 mg = 1 cap(s), Oral, q12hr, X 5 day(s), # 10 cap(s), Refills(s) 0, Pharmacy: [facility] 1985, 162.5, cm, 07/17/22 9:09:00 EDT, Height/Length Dosing, 80, kg, 07/17/22 9:09:00 EDT, Weight Dosing Patient Specific Meds, Each, Misc, Once, Stop date 07/17/22 9:10:34 EDT, Physician Stop, 07/17/22 9:10:34 EDT Influenza A&B Ag Rapid COVID Antigen ([facility]) UA With Cult Reflex [facility]10-03-2022 Hospital Discharge instructions Patient Education 07/17/2022 09:55:44 [...] 01/26/2012 Document Revised: 01/23/2020 Document Reviewed: 09/04/2019 [employer] Patient Education 2020 Skill-Life. 07/17/2022 09:55:44 Urinary Tract Infection, Adult Urinary [...] Treatment for this condition includes: Antibiotic medicine. Isvk-ztk-hyjfkkk medicines to treat discomfort. Drinking enough water [...] Follow these instructions at home: Medicines Take yaow-iza-ibjczuo and prescription medicines only as told by [...] 07/11/2006 Document Revised: 09/18/2019 Document Reviewed: 04/10/2019 Elsenfon Patient Education 2020 [employer] Inc. Follow Up Care 07/17/2022 09:04:38 With:Luis Carlos Jung Address: [address] [address]- Business (1) When:07/20/2022 09:46:49 With:THANG MILLAN Address: [address] [place] [address]- [facility] (1) When:07/20/2022 09:46:41 Comments:Follow-up with your primary care provider in 3 to 5 days. If symptoms worsen, do not improve, or new symptoms arise please report back to emergency department for further evaluation. [facility]09-14-2022 Evaluation + Plan note Diagnostic Tests Pending * RPR with Conf Rfx 06/28/22 [facility]09-12-2022 Hospital Discharge instructions Patient Education 06/26/2022 21:35:59 [...] 09/21/2003 Document Revised: 06/25/2018 Document Reviewed: 04/30/2017 [employer] Patient Education 2020 [employer]-Life. 06/26/2022 21:35:59 Form - Movement Counts Movement [...] 10/31/2007 Document Revised: 10/21/2019 Document Reviewed: 11/09/2016 [employer] Patient Education 2020 [employer]-Life. Follow Up Care 06/26/2022 20:41:33 With:Luis Carlos Jung Address: [address] [address]- Business (1) When:07/03/2022 07:45:00 Comments:Call for any problems.Please call if you need to rescheduleReturn for decreased movement [facility]09-05-2022 Hospital Discharge instructions Follow Up Care 06/18/2022 23:33:38 With:Luis Carlos Jung Address: [address] [address] Business (1) When:5 to 7 days Comments:Appointment has already been scheduledCall for any problems.Call for fever > 100.5 FCall for severe abdominal painCall physician for heavy vaginal bleedingPlease call if you need to rescheduleReturn for contractions closer, longer, harderReturn for decreased movementReturn if ruptured membranes or vaginal bleeding [facility]07-18-2022 Hospital Discharge instructions Follow Up Care 05/01/2022 17:08:54 With:Luis Carlos Jung Address: [address], [facility] [address] [place] [address]- Business (1) When:05/09/2022 Comments:Return if ruptured membranes or vaginal bleedingReturn for contractions closer, longer, harderCall physician if symptoms worsenCall physician for heavy vaginal bleedingCall for severe abdominal painCall for fever > 100.5 FCall for any problems. drink more fluids including gatorade, take milk of magnesia twice /day until yo u have bowel movements, benefiber daily [facility]06-19-2022 Evaluation + Plan note Diagnostic Tests Pending * Urine Culture 6/19/22 [facility]06-19-2022 Hospital Discharge instructions Patient Education 04/02/2022 10:22:48 Second Trimester of , Dydp-jf-Teqt Second Trimester of The second trimester is [...] Follow these instructions at home: Medicines Take dwff-tsa-inclhxx and prescription medicines only as told by [...] 12/26/2010 Document Revised: 01/23/2020 Document Reviewed: 11/06/2017 [employer] Patient Education 2020 Skill-Life. 04/02/2022 10:22:48 Vaginal Bleeding During , Second [...] says that this is safe. Medicines Take zeji-wbx-ioptbgk and prescription medicines only as told by [...] Document Reviewed: 01/03/2018 Elsevier Patient Education 2020 [employer] Inc. Follow Up Care 04/02/2022 06:00:26 With:Dr. Jung [phone] Address:Unknown When:2 to 3 days Comments:Call for any problems.Call physician if symptoms worsen [facility]06-09-2022 Hospital Discharge instructions Patient Education 03/23/2022 20:39:21 Second Trimester of , Cztw-uw-Zgvm Second Trimester of The second trimester is [...] Follow these instructions at home: Medicines Take etsv-rsn-ppzdbft and prescription medicines only as told by [...] 12/26/2010 Document Revised: 01/23/2020 Document Reviewed: 11/06/2017 [employer] Patient Education 2020 Sk[employer]-Life. 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 Avoid heavy [...] grounds. You are around people who have Vietnamese measles, fifth disease, or chickenpox. You have [...] 03/19/2009 Document Revised: 01/22/2020 Document Reviewed: 10/09/2017 [employer]JMetrics Patient Education 2020 Skill-Life. 03/23/2022 20:39:21 Abdominal Pain During , Ivux-nt-Enyv Abdominal Pain During Belly (abdominal) pain is [...] keep your pee (urine) pale yellow. Take bbck-gfu-vanhczk and prescription medicines only as told by [...] 09/19/2010 Document Revised: 01/19/2020 Document Reviewed: 01/03/2018 RJMetrics Patient Education 2020 Skill-Life. Follow Up Care 03/23/2022 19:35:57 With:Luis Carlos Jung Address: [address] [place] [address] [address] Business (1) When:03/27/2022 10:00:00 Comments:Call for any problems. Call [facility] first, ask to speak directly to Dr. Jung before heading to hospital unless an emergency. Call for severe abdominal pain or worsening pain.Return if vaginal bleedingor ruptured membranes.Wear belly band as much as possible, especially as your belly grows in . [facility]05-04-2022 Evaluation + Plan note Diagnostic Tests Pending * RPR with Conf Rfx 02/15/22 * HIV Screen 4th Generation wRfx 02/15/22 * Rubella Antibody IgG 02/15/22 * Hepatitis B Surface Antigen 02/15/22 * Urine Culture 02/15/22 [facility]06-18-2021 NoteHNO ID: [id number] Author: Bert Negrete, DO Service: ? 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 [facility]06-10-2021 NoteHNO ID: [id number] Author: Karen Vinson RT(R) Service: Nuclear Medicine Author Type: Police Investigator Type: Progress Notes Filed: 03/24/2021 9:39 AM [...] 0740 PATIENT DISCHARGED TO: Ambulatory patient, left [place] department area. A Diagnostic radioactive procedure has taken place, with no further precautions necessary other than routine body substance precautions. More information regarding radiation safety can be found using this link: [email or web address] SIGNATURE: RT Oliva(R) PATIENT NAME: Susan Bro DATE: March 24, 2021 TIME: 9:38 AM PAGER/CONTACT #:[facility]05-27-2021 NoteHNO ID: [id number] Author: Martha Webb MD Service: ? Author Type: Physician Type: Progress Notes Filed: 03/10/2021 12:03 PM Note Text: This note was created using Slideriter. Subjective Susan Bro is a 25 year [...] biliary ductal dilatation is (more content not included)...[facility] course Narrative No data available for this section [facility] Discharge instructions No data available for this section [facility] No data available for this section [facility] Summary Purpose Family History No Family History [...] FoundDocuments on File Type Date Recorded Patient Circuitry Negative Inspector Expl anation Advance Directives and Reggie kelly Will 10/14/2020 10:22 AM Documents on File Type Date Recorded Patient Circuitry Negative Inspector Expl anation ACP-Advance Directive ACP-Power of Quality Assurance/R&D Lab Technician Discharge Instructions * Discharge Instr - Care Coordination* Andra Schmid RN - 10/14/2020 11:43 AM [facility] Primary [facility] Trust the experts at [facility] to meet your healthcare needs. When you make an appointment with [facility], it's the start of a long-lasting partnership that's committed to your health. We provide the very best prevention, wellness and illness care, and give you access to the advanced medical services and expert treatment available at [facility]. Please note that the provider listed below is accepting patients in your area. [place]: [address] [phone] MD Debby Lala MD Christina Spring, CNP For the most up-to-date information on a care provider in your community, use the Find a Doctor tool on Firefly Mobile [facility] Primary [facility] * Attachments The following attachments cannot be sent through Care Everywhere. * Vertigo (Kosovan) * Arik Maneuver: Vertigo: Exercises (Kosovan) documented in this encounter* Instructions* Bakari Valente [...] be sent through Care Everywhere. * Bruises (Kosovan) * Contusion (Kosovan) documented in this encounter Assessments Diagnosis Vertigo- Primary Dizziness and giddiness Diagnosis Contusion of right knee, initial encounter Contusion of multiple sites of right shoulder and upper arm, initial encounter Additional Source Comments INFORMATION SOURCE (unrecogn ized section and content) DATE CREATED AUTHOR 04/09/2018 [facility] DATE CREATED AUTHOR AUTHOR'S ORGANIZ ATION 08/10/2020 [facility] DATE CREATED AUTHOR AUTHOR'S ORGANIZ ATION 09/07/2020 [facility] DATE CREATED AUTHOR AUTHOR'S ORGANIZ ATION 10/20/2020 [facility] DATE CREATED AUTHOR AUTHOR'S ORGANIZ ATION 03/18/2021 [facility] DATE CREATED AUTHOR AUTHOR'S ORGANIZ ATION 11/15/2021 [facility] DATE CREATED AUTHOR AUTHOR'S ORGANIZ ATION 08/25/2023 [facility] DATE CREATED AUTHOR AUTHOR'S ORGANIZ ATION 10/19/2023 [facility] dical Specialists EPIC Reason for Visit (unrecogniz ed section and content) Reason Comments Dizziness Reason Comments Knee Pain right knee pain, 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 denies hitting head or any LOC Shoulder Pain rt shoulder, fell ov er dust guzman onto her right side. Susan Griffiths PA-C - 10/14/2020 10:44 AM Amena Cantrell RN - 10/14/2020 10:32 AM EST ED Notes (unrecognized secti on and content) [facility] ED Note: NAME: Susan Bro 24 y.o. CSN: [id number] PCP: Physician No History: Chief Complaint: Dizziness [...] file Gets together: Not on file Attends episcopalian service: Not on file Active member of [...] does have reproducible vertigo with position changes. Tddwyw-is-mplt maneuvers are intact without dysmetria. There is negative Romberg sign. There was no ataxia on ambulation. Psychiatric: Mood and Affect: Mood normal. Behavior: Behavior normal. Thought Content: Thought content normal. Laboratory & Radiological Imaging (if done): Labs Reviewed URINALYSIS - Abnormal; Notable for the following components: Result Value Clarity, Urine Cloudy (*) Specific Lyons 1.028 (*) pH, Urine 8.0 (*) Protein, [...] at the following links: For Healthcare Providers: https://www.fda.gov/media/625555/download For Patients: https://www.fda.gov/media/891767/download HCG URINE, QUALITATIVE - Normal CBC AND DIFFERENTIAL Narrative: The following orders were created for panel order CBC w/ Diff. Procedure Abnormality Status --------- ------ CBC Auto Differential[[id number]] Abnormal Final result Please view results for these tests on the individual orders. HCG URINE, QUALITATIVE URINALYSIS CT Head Or Brain Without Contrast Final Result 1. No acute intracranial hemorrhage, focal edema or mass effect. Workstation ID: [id number] EKG: Normal sinus rhythm with sinus arrhythmia RATE: 74 AXIS: Normal axis INTERVALS: SC interval of 178 ms, QRS duration of [...] Antivert. She is referred to follow-up with [facility] or [place] that she does not currently have a [...] needed for dizziness . Susan Griffiths Physicians Coagulating Bath Operator [facility] Emergency Department Susan Griffiths PA-C 10/14/20 1203 Special isolation precautions are in place with signage outside this patient's room. This healthcare financial analyst performs hand hygiene and enters the patient [...] or prosecute any alcohol or drug abuse patient.[facility] Care Team (unrecognized sect ion and content) Personnel Name: THANG MILLAN CNP Address: [address] [place] [address] Personnel Name: THANG MILLAN CNP Address: [address] [place] [address] Personnel Name: THANG MILLAN CNP Address: [address] [place] [address] Personnel Name: THANG MILLAN CNP Address: [address] [place], [place] [id number] Personnel Name: THANG MILLAN CNP Address: [address] [place], [place] [id number] Personnel Name: THANG MILLAN CNP Address: [address] [place] [address] Personnel Name: THANG MILLAN CNP Address: [address] [place] [address] Personnel Name: THANG MILLAN CNP Address: [address] [place] [address] Personnel Name: THANG MILLAN CNP Address: Address: [address] [place] [address] Personnel Name: THANG MILLAN CNP Address: Address: [address] [place] [address]- [place] Personnel Name: THANG MILLAN CNP Address: Address: [address] [place] [address]- [place] Personnel Name: THANG MILLAN CNP Address: Address: [address] [place] [address]- [place] Personnel Name: THANG MILLAN CNP Address: Address: [address] [place] [address]- [place] Personnel Name: THANG MILLAN CNP Address: Address: [address] [place] [address]- [place] Personnel Name: THANG MILLAN CNP Address: Address: [address] [place] [address]- [place] Personnel Name: THANG MILLAN CNP Address: Address: [address] [place] [address]- [place] Personnel Name: THNAG MILLAN CNP Address: Address: [address] [place] [address]- [place] Personnel Name: THANG MILLAN CNP Address: Address: [address] [place] [address]- [place] Personnel Name: THANG MILLAN CNP Address: Address: [address] [place] [address]- [place] Personnel Name: THANG MILLAN CNP Address: Address: [address] [place] [address]- [place] Personnel Name: THANG MILLAN CNP Address: Address: [address] [place] [address]- [place] Personnel Name: THANG MILLAN CNP Address: Address: [address] [place] [address]- [place] Personnel Name: THANG MILLAN CNP Address: Address: [address] [place] [address]- [place] Personnel Name: THANG MILLAN CNP Address: Address: [address] [place] [address]- [place] Personnel Name: THANG MILLAN CNP Address: Address: [address] [place] [address]- [place] Personnel Name: THANG MILLAN CNP Address: Address: [address] [place] [address]- [place] Personnel Name: Luis Carlos Jung MD Address: Address: [address] [place] [address], [address] [address] [place] Personnel Name: Luis Carlos Jung MD Address: Address: [address] [place], [place] [address], [address] [address]- [place] Personnel Name: Luis Carlos Jung MD Address: Address: [facility] [address], [facility] [address] Personnel Name: Luis Carlos Jung MD Address: Address: [facility] [address], [facility] [address] Personnel Name: Luis Carlos Jung MD Address: Address: [facility] [address], [facility] [address] Personnel Name: Rashaun PURVIS DO Address: Address: [address] , [facility] Personnel Name: NONE, XXXX Address: Address: [facility] Personnel Name: LLC, GENERIC Personnel Name: LLC, [...] BE BASED ON THE PRIMARY CLINICAL RECORDS. [facility] [employer] [facility]. provides no warranty or guarantee [id number] the accuracy [phone] completeness of information in this [id number]
[2023-10-30 09:57] LABS: Thyroid Stimulating Hormone 1.822 uIU/mL (0.358-3.740)
== END 2023-10-30 07:43 | disposition home or self-care (01) ==
LOC: LAB 07:43
PROVIDERS: Visit Provider Obstetrics & Gynecology
DX: Z34.92 Encounter for supervision of normal pregnancy, unspecified, second trimester (principal)
CPT/HCPCS: 36415; 84443

== ENCOUNTER 2023-11-02 07:15 | Outpatient (OUT) | payer OTHER, SELFPAY ==
--- OUTSIDE RECORDS SUMMARY | 2023-11-02 07:19 | XMS_ITS | CCD ---
Author Name Unknown Address [address] [place] [address] Organization [facility] Care Team Providers Care External Auditor Name Role Phone MELISSANKECHI Unavailable Unavaila BAKARI Liriano Attending Unavailable THANG MILLAN Primary Care Unavailable No, Physician Primary Care Provider Unavailerum e NO, PHYSICIAN Primary Care Unavailable REGINE CHOW Admitting Unavailable REGINE CHOW Attending Unavailable Thang Millan Primary Care Provider [phone] Unavailable Primary Care Provider UnavailTHANG Mauro Primary [...] Luis Carlos Byrd Consulting Unavailable Spasic, Roverto Beatrice Attending Unavailabl e Spasic, Roverto V. Admitting Unavailabl e Fabiana, Luis [...] Noel Attending Unavailable ANGELA, DODIE Attending Unavailable YANIV, RASHAUN Attending Unavailable YANIV, RASHAUN Attending Unavailable ANGELA, DODIE Attending Unavailable Allergies Allergy Classification Reported Allergen(s) Allergy Type Date of Onset Reaction(s) Facility (20 sources) amoxicillin; Translations: [AMOXICILLIN] Drug Allergy 7 [facility] Repository (20 sources) penicillin; Translations: [PENICILLIN] Drug Allergy 7 [facility] Repository (3 sources) Penicillins; Translations: [PENICILLINS] Propensity to adverse reactions to drug 0 [facility] [place] Medications Current Medications Medication Drug Class(es) Dates [...] day(s), # 15 cap(s), Refills(s) 0, Pharmacy: [facility], 162.6, cm, 05/21/23 20:50:00 EDT, Height/Length Dosing, 75.3, kg, 05/21/23 20:50:00 EDT, Weight Dosing Start Date: 05/21/23 Stop Date: 05/26/23 Status: Ordered Start: 08-18-2022 End: 08-25-2022 take 1 capsule by mouth four times daily Keflex 500 mg Cap 500 mg = 1 cap(s), Oral, QID, X 7 day(s), # 28 cap(s), Refills(s) 0, Pharmacy: [facility] 1985, 162.5, cm, 08/18/22 4:15:00 EDT, Height/Length Dosing, 80, kg, 08/18/22 4:15:00 EDT, Weight Dosing Start Date: 08/18/22 Stop Date: 08/25/22 Status: Ordered Start: 07-17-2022 End: 07-22-2022 take 1 capsule by mouth every twelve hours Keflex 500 mg Cap 500 mg = 1 cap(s), Oral, q12hr, X 5 day(s), # 10 cap(s), Refills(s) 0, Pharmacy: [facility], 162.5, cm, 07/17/22 9:09:00 EDT, Height/Length Dosing, 80, kg, 07/17/22 9:09:00 EDT, Weight Dosing Start Date: 07/17/22 Stop Date: 07/22/22 Status: Ordered Start: 04-02-2022 End: 04-09-2022 take 1 capsule by mouth four times daily Keflex 500 mg Cap 500 mg = 1 cap(s), Oral, QID, X 7 day(s), # 28 cap(s), Refills(s) 0, Pharmacy: [facility], 160, cm, 04/02/22 6:28:00 EDT, [...] Daily, # 14 tab(s), Refills(s) 0, Pharmacy: [facility] 1986, 162.6, cm, 05/21/23 20:50:00 EDT, Height/Length Dosing, 75.3, kg, 05/21/23 20:50:00 EDT, Weight Dosing Start Date: 05/21/23 Status: Ordered ibuprofen 600 mg oral tablet (11 sources) Nonsteroidal Anti-inflammatory Drug Start: 09-27-2022 take 1 tablet by mouth every six hours ibuprofen 600 mg Tab 600 mg = 1 tab(s), Oral, q6hr, # 15 tab(s), Refills(s) 0, Pharmacy: [facility] 1985, 162.5, cm, 09/24/22 21:51:00 EST, [...] dizziness, # 15 tab(s), Refills(s) 0, Pharmacy: [employer] [facility] [address], 163, cm, 11/30/21 7:18:00 EST, Height/Length [...] Nausea/Vomiting, # 12 tab(s), Refills(s) 0, Pharmacy: [facility] 1986, 163, cm, 09/05/22 20:14:00 EST, [...] day(s), # 6 tab(s), Refills(s) 0, Pharmacy: [facility], 163, cm, 06/28/23 10:39:00 EDT, [...] q8hr, # 12 tab(s), Refills(s) 0, Pharmacy: [facility] 1986, 162.6, cm, 05/21/23 20:50:00 EDT, [...] T3 [Mass/Vol] 146 ng/dL Invalid Interpretation Code [id number] [facility] Comment on above: Result Comment: Perf ormed at: [facility] [address] [id number] PhD [place] Performed By: #### 2 020063, 14747369, 4902279, 73382724, 5137223, 2843707, 40754915 ####[facility] [address] [place] [address] Auto Diffon 08-23-2023 Basophils/100 WBC (Bld) 0.9 % Normal 0.0-2.0 [facility] Comment on above: Order Comment: Order Added by Discern Expert. Performed By: #### 2 335061, 21842676, 5363979, 45408932, 1137636, 2397244, 28387163 ####[facility] [address] [place] [address] Basophils/Leukocytes Auto (Bld) [Pure # fraction] 0.1 E9/L Normal 0.0-0.2 [facility] Comment on above: Order Comment: Order Added by Discern Expert. Performed By: #### 2 203603, 25822659, 2434751, 39886359, 8455893, 9302002, 58819945 ####[address] [place] [address] Eosinophils/100 WBC (Bld) 1.3 % Normal 0.0-8.0 [facility] Comment on above: Order Comment: Order Added by Discern Expert. Performed By: #### 2 930894, 92318040, 9042063, 19232299, 8754633, 5788700, 34044155 ####[address] [place] [address] Eosinophils/Leukocytes Auto (Bld) [Pure # fraction] 0.1 E9/L Normal 0.0-0.5 [facility] Comment on above: Order Comment: Order Added by Discern Expert. Performed By: #### 2 108727, 63422909, 0977758, 65263406, 3765631, 3439607, 79032185 ####[address] [address] Lymphocytes/100 WBC (Bld) 17.7 % Normal 14.0-50.0 [facility] Comment on above: Order Comment: Order Added by Discern Expert. Performed By: #### 2 681982, 31761290, 4402927, 61286901, 3781714, 7511699, 81082251 ####[address] [place] [address] Lymphocytes/Leukocytes Auto (Bld) [Pure # fraction] 1.4 E9/L Normal 1.0-4.0 [facility] Comment on above: Order Comment: Order Added by Discern Expert. Performed By: #### 2 320322, 44460616, 1486636, 18038883, 9412360, 5740293, 47844458 ####[address] [address] Monocytes/100 WBC (Bld) 5.1 % Normal 4.0-14.0 [facility] Comment on above: Order Comment: Order Added by Discern Expert. Performed By: #### 2 449113, 99913762, 1404904, 15358245, 1884384, 4813926, 11258143 ####[facility] [address] [place] [address] Monocytes/Leukocytes Auto (Bld) [Pure # fraction] 0.4 E9/L Normal 0.2-1.0 [facility] Comment on above: Order Comment: Order Added by Discern Expert. Performed By: #### 2 071789, 63940218, 3750865, 01932881, 0996907, 7206643, 86247810 ####[address] [place] [address] Neutrophils/100 WBC (Bld) 75.0 % Normal 36.0-75.0 [facility] Comment on above: Order Comment: Order Added by Discern Expert. Performed By: #### 2 351108, 45781440, 9243400, 23958092, 7999341, 0253312, 18324417 ####[address] [place] [address] Neutrophils/Leukocytes Auto (Bld) [Pure # fraction] 5.8 E9/L Normal 2.0-7.5 [facility] Comment on above: Order Comment: Order Added by Discern Expert. Performed By: #### 2 669460, 52405220, 8535860, 19971650, 3889851, 4081200, 95070786 ####[address] [place] [address] CBC w/ Auto Diffon 3 Erythrocyte distribution width (RBC) [Ratio] 14.5 % High 10.9-14.2 [facility] Comment on above: Performed By: #### 2 468673, 09327597, 2351399, 14733373, 7759162, 0435944, 38155917 ####[address] [place] [address] Hematocrit (Bld) [Volume fraction] 36.4 % Normal 34.0-46.0 [facility] Comment on above: Performed By: #### 2 848073, 35431049, 7264769, 54647857, 7700174, 1646345, 66523985 ####[facility] [address] [place] [address] Hemoglobin (Bld) [Mass/Vol] 12.1 g/dL Normal 12.0-16.0 [facility] Comment on above: Performed By: #### 2 694516, 42162566, 3443977, 61531494, 5444299, 6985745, 63426328 ####[facility] [address] [place] [address] MCH (RBC) [Entitic mass] 30.2 pg Normal 27.0-34.0 [facility] Comment on above: Performed By: #### 2 861724, 39615759, 5820970, 50051142, 4964757, 3677175, 49020745 ####[address] [address] MCHC (RBC) [Mass/Vol] 33.3 g/dL Normal 31.4-36.0 [facility] Comment on above: Performed By: #### 2 406743, 54963669, 3344832, 68795554, 8509450, 7094086, 53711442 ####[facility] [address] [place] [address] MCV (RBC) [Entitic vol] 90.8 fL Normal 80.0-100.0 [facility] Comment on above: Performed By: #### 2 387809, 56834126, 4963113, 16037848, 2553826, 8568536, 25105214 ####[facility] [address] [place] [address] Platelet mean volume (Bld) [Entitic vol] 9.7 fL Normal 6.4-10.8 [facility] Comment on above: Performed By: #### 2 457455, 63318587, 8512787, 89946454, 7857351, 3507141, 24695311 ####[facility] [address] [place] [address] Platelets (Bld) [#/Vol] 270.0 E9/L Normal 150.0-500.0 [facility] Comment on above: Performed By: #### 2 992790, 99260282, 0368823, 29869032, 8023463, 7925254, 59538408 ####[facility] [address] [place] [address] RBC (Bld) [#/Vol] 4.0 E12/L Low 4.3-5.9 [facility] Comment on above: Performed By: #### 2 431122, 87368233, 5904682, 47175366, 6642500, 5402150, 22365797 ####[facility] [address] [place] [address] WBC corrected for nucl RBC Auto (Bld) [#/Vol] 7.7 E9/L Normal 4.0-11.0 [facility] Comment on above: Performed By: #### 2 818653, 88435401, 7526590, 12608124, 8913925, 2468977, 31375517 ####[facility] [address] [place] [address] CHEMISTRYOrdered By: SYSTEM SYSTEM on 08-23-2023 Albumin [...] 125 mL/min/1.73 m2 Normal >=59mL/min/ 1.73 m2 [facility] Chem S Comment on above: Interpretive Data: [...] 7 mg/dL Normal 5 - 21 mg/dL FT Remisol Urea nitrogen/Creatinine [Mass ratio] 12 mg/mg Normal 10 - 20 [facility] Remisol CMPon 08-23-2023 Albumin [Mass/Vol] 2.8 g/dL Low 3.3-5.0 [facility] Comment on above: Performed By: #### 2 116644, 24793548, 1272689, 66275726, 4737997, 4884845, 68090763 ####[facility] [address] [place] [address] Albumin/Globulin (S) [Mass conc ratio] 0.7 Low 1.1-2.2 [facility] Comment on above: Performed By: #### 2 371699, 85671050, 6432582, 38377894, 3809075, 6103923, 53107666 ####[facility] [address] [place] [address] ALP [Catalytic activity/Vol] 49 Int._Unit/L Normal 21-98 [facility] Comment on above: Performed By: #### 2 136707, 11845480, 6847063, 30978499, 8310467, 4117677, 31524769 ####[facility] [address] [place] [address] ALT No additional P-5'-P [Catalytic activity/Vol] 15 Int._Unit/L Normal 6-46 [facility] Comment on above: Performed By: #### 2 755822, 48723530, 1886844, 51887227, 6053192, 0252959, 86092302 ####[facility] [address] [place] [address] Anion gap [Moles/Vol] 12 mmol/L Normal 6-16 [facility] Comment on above: Performed By: #### 2 428724, 55474515, 4807749, 71263982, 8133410, 5166982, 14776659 ####[facility] [address] [place] [address] AST [Catalytic activity/Vol] 17 Int._Unit/L Normal 5-43 [facility] Comment on above: Performed By: #### 2 904854, 45807808, 3957871, 25485860, 9793537, 9761579, 80336092 ####[facility] [address] [place] [address] Bilirubin [Mass/Vol] 0.5 mg/dL Normal 0.0-1.1 [facility] Comment on above: Performed By: #### 2 444264, 34513570, 1784336, 57925067, 1414733, 1181670, 60039980 ####[facility] [address] [place] [address] Calcium [Mass/Vol] 8.8 mg/dL Low 8.9-11.1 [facility] Comment on above: Performed By: #### 2 806910, 22112986, 0014699, 36708650, 9026394, 2799752, 74170349 ####[facility] [address] [place] [address] Chloride [Moles/Vol] 108 mmol/L Normal 101-111 [facility] Comment on above: Performed By: #### 2 336355, 63712280, 6622363, 90087018, 3049623, 2284594, 64283220 ####[facility] [address] [place] [address] CO2 [Moles/Vol] 22 mmol/L Normal 21-31 [facility] Comment on above: Performed By: #### 2 639895, 12051868, 3204223, 71453809, 9510644, 2702408, 35390306 ####[facility] [address] [place] [address] Creatinine [Mass/Vol] 0.6 mg/dL Normal 0.5-1.3 [facility] Comment on above: Performed By: #### 2 482154, 09543341, 7359537, 52290931, 0744953, 4603880, 22736128 ####[facility] [address] [place] [address] Globulin (S) [Mass/Vol] 3.8 g/dL Normal 1.4-4.0 [facility] Comment on above: Performed By: #### 2 518329, 63105050, 8865560, 92373352, 2712698, 4120636, 65267071 ####[facility] [address] [place] [address] Glucose [Mass/Vol] 88 mg/dL Normal 55-199 [facility] Comment on above: Result Comment: If t his glucose result represents a fasting glucose, interpretation should refer to the following reference range: 55-99 mg/dL Performed By: #### 2 671517, 60952514, 8498148, 22712440, 1080696, 0025805, 98716603 ####[facility] [address] [place] [address] Potassium [Moles/Vol] 3.5 mmol/L Normal 3.5-5.3 [facility] Comment on above: Performed By: #### 2 218350, 13028030, 4127626, 55887441, 2079883, 5210795, 22692117 ####[facility] [address] [place] [address] Protein [Mass/Vol] 6.6 g/dL Normal 6.0-7.8 [facility] Comment on above: Performed By: #### 2 009626, 61768760, 5773617, 25248071, 1450898, 4130253, 86768478 ####[facility] [address] [place] [address] Sodium [Moles/Vol] 138 mmol/L Normal 135-145 [facility] Comment on above: Performed By: #### 2 037427, 92669062, 8950099, 24837135, 9493407, 4751345, 89556285 ####[facility] [address] [place] [address] Urea nitrogen [Mass/Vol] 7 mg/dL Normal 5-21 [facility] Comment on above: Performed By: #### 2 670836, 11459298, 2960249, 63728267, 1723193, 7067416, 61045990 ####[facility] [address] [place] [address] Urea nitrogen/Creatinine [Mass ratio] 12 No Units Normal 10-20 [facility] Comment on above: Performed By: #### 2 412334, 95241027, 7603953, 92633097, 0368048, 5590648, 02824598 ####[facility] [address] [place] [address] HEMATOLOGYOrdered By: SYSTEM SYSTEM on 08-23-2023 Basophils/100 [...] 7.7 E9/L Normal 4.0 - 11.0 E9/L [facility] HemeAutoSS Lipid Panelon 08-23-2023 Cholesterol [Mass/Vol] 238 mg/dL High 120-200 [facility] Comment on above: Performed By: #### 2 086640, 17170659, 7371126, 66397852, 0987007, 0409468, 26786677 ####[facility] [address] [place] [address] Cholesterol in HDL [Mass/Vol] 64 mg/dL Invalid Interpretation Code [facility] Comment on above: Result Comment: HDL > or equal to 60 mg/dL: Low cardiovascular riskHDL < 40 mg/dL : High cardiovascular risk Performed By: #### 2 837434, 18271664, 4341202, 78718803, 8818098, 6998695, 60922825 ####[facility] [address] [place] [address] Cholesterol in LDL [Mass/Vol] 146 mg/dL High <=129 [facility] Comment on above: Performed By: #### 2 607163, 57777272, 6616288, 38288067, 8150039, 5286945, 84315008 ####[facility] [address] [place] [address] Cholesterol in VLDL [Mass/Vol] 33 mg/dL Normal 7-40 [facility] Comment on above: Performed By: #### 2 500570, 57111980, 7120503, 51204048, 2803599, 9632343, 02212987 ####[facility] [address] [place] [address] Triglyceride [Mass/Vol] 164 mg/dL High <=149 [facility] Comment on above: Performed By: #### 2 176578, 74804583, 2113326, 52756443, 0876748, 4599285, 45565217 ####[facility] [address] [place] [address] Physician Orderon 08-23-2023 Physician Order [id number]#1.00TIFF Normal [facility] T4 & TSHon 08-23-2023 T4 [Mass/Vol] 11.8 microgram/dL High 4.6-9.1 [facility] Comment on above: Performed By: #### 2 401274, 31780618, 0753355, 25971093, 1564303, 3892668, 73970289 ####[facility] [address] [place] [address] TSH Qn 3.61 m[IU]/L Normal 0.34-5.60 [facility] Comment on above: Performed By: #### 2 457793, 00811071, 7726403, 85507249, 8419642, 8544091, 26077598 ####[facility] [address] [place] [address] eGFRon 08-23-2023 GFR/1.73 sq M.predicted among non-blacks MDRD (S/P/Bld) [Vol rate/Area] 125 mL/min/1.73 m2 Normal >=59 [facility] Comment on above: Order Comment: Order added by Discern Expert. Result Comment: [employer] lucy kidney disease could be indicated at eGFR's of less than 60 mL/min/1.73m2. Kidney failure is indicated at less than 15 mL/min/1.73m2. Performed By: #### 2 463569, 53186715, 0443075, 62566694, 8121953, 3413529, 20749107 ####[facility] [address] [place] [address] Nursing Assessmenton 023 Nursing Assessment [id number]#1.00TIFF [facility] Consent for Treatmenton Consent for Treatment [id number]#1.00TIFF [facility] Discharge Instructionson Discharge Instructions [id number]#1.00TIFF Normal [facility] Inpatient Clinical Summaryon 08-18-2023 Inpatient Clinical Summary Normal [facility] Inpatient Patient Summaryon 08-18-2023 Inpatient Patient Summary Normal [facility] Insurance Correspondenceon 10-18-2022 Insurance Correspondence [id number]#1.00TIFF Normal [facility] Vaccinationson 08-18-2023 Vaccinations [id number]#1.00TIFF [facility] C Urineon 07-27-2023 Bacteria identified Cx Nom (U) Normal [facility] Comment on above: Performed By: #### 2 370563, 07084777 ####[facility] [address] [place] [address] ABO/Rhon 07-25-2023 ABO/Rh Positive Invalid Interpretation Code [facility] Comment on above: Performed By: #### 2 131649 ####[facility] [address] [place] [address] Auto Diffon 07-25-2023 Basophils/100 WBC (Bld) 1.1 % Normal 0.0-2.0 [facility] Comment on above: Order Comment: Order Added by Discern Expert. Performed By: #### 1 5266158, 7594422, 8021931, 2441948, 9309853, 1646248 ####[address] [address] Basophils/Leukocytes Auto (Bld) [Pure # fraction] 0.1 E9/L Normal 0.0-0.2 [facility] Comment on above: Order Comment: Order Added by Discern Expert. Performed By: #### 1 2763476, 1845590, 8884095, 4902098, 8593009, 8337035 ####[address] [place] [address] Eosinophils/100 WBC (Bld) 1.2 % Normal 0.0-8.0 [facility] Comment on above: Order Comment: Order Added by Discern Expert. Performed By: #### 1 0818512, 7707336, 8617459, 8972243, 4544488, 4731159 ####[facility] [address] [place] [address] Eosinophils/Leukocytes Auto (Bld) [Pure # fraction] 0.1 E9/L Normal 0.0-0.5 [facility] Comment on above: Order Comment: Order Added by Discern Expert. Performed By: #### 1 4242082, 3406445, 1769094, 9212211, 1065388, 6747158 ####[address] [place] [address] Lymphocytes/100 WBC (Bld) 23.7 % Normal 14.0-50.0 [facility] Comment on above: Order Comment: Order Added by Discern Expert. Performed By: #### 1 9369285, 7401691, 2337873, 2635321, 3120711, 4488644 ####[address] [place] [address] Lymphocytes/Leukocytes Auto (Bld) [Pure # fraction] 1.4 E9/L Normal 1.0-4.0 [facility] Comment on above: Order Comment: Order Added by Discern Expert. Performed By: #### 1 7605743, 0053260, 7954024, 0348308, 9778676, 6960320 ####[address] [place] [address] Monocytes/100 WBC (Bld) 6.7 % Normal 4.0-14.0 [facility] Comment on above: Order Comment: Order Added by Discern Expert. Performed By: #### 1 0305609, 0746136, 2158677, 1498947, 0505212, 1352137 ####[address] [address] Monocytes/Leukocytes Auto (Bld) [Pure # fraction] 0.4 E9/L Normal 0.2-1.0 [facility] Comment on above: Order Comment: Order Added by Discern Expert. Performed By: #### 1 9006038, 7761283, 6566522, 2311639, 1427294, 7182639 ####[address] [place] [address] Neutrophils/100 WBC (Bld) 67.3 % Normal 36.0-75.0 [facility] Comment on above: Order Comment: Order Added by Discern Expert. Performed By: #### 1 7134958, 6677567, 6663637, 6540906, 8075046, 0746148 ####[address] [place] [address] Neutrophils/Leukocytes Auto (Bld) [Pure # fraction] 4.0 E9/L Normal 2.0-7.5 [facility] Comment on above: Order Comment: Order Added by Discern Expert. Performed By: #### 1 2853694, 9000366, 1115956, 1183269, 1460787, 9283539 ####[facility] [address] [place] [address] BLOOD BANKOrdered By: An Lassiter on 07-25-2023 ABO/Rh Interp Positive Invalid Interpretation Code [facility] BB Subsection BMPon 07-25-2023 Creatinine [Mass/Vol] 0.6 mg/dL Normal 0.5-1.3 [facility] Comment on above: Performed By: #### 1 7056030, 4551119, 4343474, 3839351, 0228494, 6446292 ####[facility] [address] [place] [address] Urea nitrogen [Mass/Vol] 6 mg/dL Normal 5-21 [facility] Comment on above: Performed By: #### 1 8330585, 5186853, 5096273, 9898863, 1769100, 3384068 ####[facility] [address] [place] [address] Urea nitrogen/Creatinine [Mass ratio] 10 No Units Normal 10-20 [facility] Comment on above: Performed By: #### 1 0163352, 5469364, 0619945, 3215530, 0405745, 0632753 ####[facility] [address] [place] [address] Anion gap [Moles/Vol] 2 mmol/L Low 6-16 [facility] Comment on above: Performed By: #### 1 1585784, 1561370, 7783561, 5809701, 7075236, 7037293 ####[facility] [address] [place] [address] Calcium [Mass/Vol] 8.6 mg/dL Low 8.9-11.1 [facility] Comment on above: Performed By: #### 1 7455538, 2212703, 6638832, 3433183, 6636760, 1752226 ####[facility] [address] [place] [address] Chloride [Moles/Vol] 107 mmol/L Normal 101-111 [facility] Comment on above: Performed By: #### 1 7668070, 2689883, 0824270, 6802894, 0647908, 5771815 ####[facility] [address] [place] [address] CO2 [Moles/Vol] 27 mmol/L Normal 21-31 [facility] Comment on above: Performed By: #### 1 5169968, 7978627, 1183397, 6585087, 1413435, 5495001 ####[facility] [address] [place] [address] Glucose [Mass/Vol] 73 mg/dL Normal 55-199 [facility] Comment on above: Result Comment: If t his glucose result represents a fasting glucose, interpretation should refer to the following reference range: 55-99 mg/dL Performed By: #### 1 4793093, 1625048, 6648953, 9606690, 2266813, 3111235 ####[facility] [address] [place] [address] Potassium [Moles/Vol] 3.9 mmol/L Normal 3.5-5.3 [facility] Comment on above: Performed By: #### 1 [id number], [id number], [id number], [id number], [id number], [id number] ####[facility] [id number] [place] [address] Sodium [Moles/Vol] 132 mmol/L Low 135-145 [facility] Comment on above: Performed By: #### 1 [id number], [id number], [id number], [id number], [id number], [id number] ####[facility] [address] [place] [address] BhCG [place] 07[birth year]2023 [place] [address] m[IU]/mL High 1-3 [facility] Comment on above: Result Comment: GEST ATIONAL AGE HCG RANGE (mIU/mL) NON- <1-3 0.2-1 WEEKS 5-50 1-2 WEEKS 50-500 2-3 WEEKS 100-5,000 3-4 WEEKS 500-10,000 4-5 WEEKS 1,000-50,000 5-6 WEEKS 10,000-100,000 6-8 WEEKS 15,000-200,000 8-12 WEEKS 10,000-100,000 Performed By: #### 2 [id number] ####[facility] [address] [place], [place] [address] CBC w/ Auto Diffon 3 Erythrocyte distribution width (RBC) [Ratio] 14.0 % Normal 10.9-14.2 [facility] Comment on above: Performed By: #### 1 1035102, 4676130, 7201411, 1693832, 6055578, 3414952 ####[address] [place] [address] Hematocrit (Bld) [Volume fraction] 37.1 % Normal 34.0-46.0 [facility] Comment on above: Performed By: #### 1 9871803, 1676882, 4394354, 2374280, 4141675, 9705931 ####[address] [place] [address] Hemoglobin (Bld) [Mass/Vol] 12.5 g/dL Normal 12.0-16.0 [facility] Comment on above: Performed By: #### 1 5943498, 6341033, 8203860, 3153541, 2472007, 0432788 ####[address] [place] [address] MCH (RBC) [Entitic mass] 29.9 pg Normal 27.0-34.0 [facility] Comment on above: Performed By: #### 1 1642454, 9153941, 8847723, 2284500, 2650348, 9179886 ####[address] [place] [address] MCHC (RBC) [Mass/Vol] 33.8 g/dL Normal 31.4-36.0 [facility] Comment on above: Performed By: #### 1 7755599, 0381416, 9836531, 6319157, 6634277, 9381855 ####[address] [place] [address] MCV (RBC) [Entitic vol] 88.4 fL Normal 80.0-100.0 [facility] Comment on above: Performed By: #### 1 2370845, 4444997, 0420979, 9665475, 0763239, 0683193 ####[address] [place] [address] Platelet mean volume (Bld) [Entitic vol] 7.9 fL Normal 6.4-10.8 [facility] Comment on above: Performed By: #### 1 6211782, 7785633, 4317231, 2495538, 1343639, 8656246 ####[address] [address] Platelets (Bld) [#/Vol] 261.0 E9/L Normal 150.0-500.0 [facility] Comment on above: Performed By: #### 1 7718441, 4979527, 0166440, 5987817, 2375186, 7780860 ####[address] [place] [address] RBC (Bld) [#/Vol] 4.2 E12/L Low 4.3-5.9 [facility] Comment on above: Performed By: #### 1 7624016, 6265870, 3136026, 4529658, 8854367, 0863763 ####[address] [place] [address] WBC corrected for nucl RBC Auto (Bld) [#/Vol] 5.9 E9/L Normal 4.0-11.0 [facility] Comment on above: Performed By: #### 1 4727895, 1803479, 6110975, 8919301, 7257908, 8064813 ####[address] [place] [address] CHEMISTRYOrdered By: SYSTEM SYSTEM on 10-11-2023 Albumin [Mass/Vol] 3.1 g/dL Low 3.3 - [...] 125 mL/min/1.73 m2 Normal >=59mL/min/ 1.73 m2 [facility] Chem S Comment on above: Interpretive Data: C hronic kidney disease could be indicated at eGFR's of less than 60 mL/min/1.73m2. Kidney failure is indicated at less than 15 mL/min/1.73m2. Globulin (S) [Mass/Vol] 3.6 g/dL Normal 1.4 - 4.0 gm/dL [facility] Remisol Glucose [Mass/Vol] 73 mg/dL Normal 55 - 199 mg/dL [facility] Remisol Comment on above: Interpretive Data: I f this glucose result represents a fasting glucose, interpretation should refer to the following reference range: 55-99 mg/[place] [address] m[IU]/mL High 1 - 3 mIU/mL FT [...] mg/dL [facility] Remisol Urea nitrogen/Creatinine [Mass ratio] 10 mg/mg Normal 10 - 20 [facility] Remisol Consent for Treatmenton 07-15 Consent for Treatment [id number] Normal [facility] Discharge Instructionson Discharge Instructions [id number] Normal [facility] ED Clinical Summaryon 2022 ED Clinical Summary Normal [facility] ED Note-Physicianon 07-25-20 ED Note-Physician Normal [facility] Comment on above: Result Comment: Elec tronically Signed By: Prachi NICHOLS, Jorge Hope\.br\Date and Time Signed: 07/25/23 10:02 EDT\.br\Electronically Co-Signed By: Kristian Guillermo DO\.br\Date and Time Co-Signed: 07/25/23 20:25 EDT ED Patient Education Noteon 07-25-2023 ED Patient Education Note Normal [facility] ED Patient Summaryon 023 ED Patient Summary Normal [facility] HEMATOLOGYOrdered By: SYSTEM SYSTEM on 07-25-2023 [...] E9/L [facility] HemeAutoSS HEMATOLOGYOrdered By: Luis Miguel Posaads on 07-25-2023 Erythrocyte distribution width (RBC) [Ratio] [...] 33.8 g/dL Normal 31.4 - 36.0 gm/dL [facility] HemeAutoSS MCV (RBC) [Entitic vol] 88.4 fL Normal 80.0 - 100.0 fL [facility] HemeAutoSS Platelet mean volume (Bld) [Entitic vol] 7.9 fL Normal 6.4 - 10.8 fL [facility] HemeAutoSS Platelets (Bld) [#/Vol] 261.0 E9/L Normal 150.0 - 500.0 E9/L [facility] HemeAutoSS RBC (Bld) [#/Vol] 4.2 E12/L Low 4.3 - 5.9 E12/L [facility] HemeAutoSS WBC corrected for nucl RBC Auto (Bld) [#/Vol] 5.9 E9/L Normal 4.0 - 11.0 E9/L [facility] HemeAutoSS Hep Func Panelon 07-25-2023 Bilirubin.indirect [Mass or moles/Vol] UTC Abnormal 0.1-0.9 [facility] Comment on above: Result Comment: Resu lt verified by Discern Rule. Performed result UTC (Unable to Calculate) was sent as an Alpha code due the inability to calculate a valid numeric value. Performed By: #### 1 2406759, 8938961, 4039528, 2213906, 3630826, 9108010 ####[facility] [address] [place] [address] Albumin [Mass/Vol] 3.1 g/dL Low 3.3-5.0 [facility] Comment on above: Performed By: #### 1 1296655, 8485902, 1669333, 2272436, 5173030, 8242101 ####[facility] [address] [place] [address] Albumin/Globulin (S) [Mass conc ratio] 0.9 Low 1.1-2.2 [facility] Comment on above: Performed By: #### 1 2791510, 1880017, 1525188, 4889409, 6570513, 8023098 ####[facility] [address] [place] [address] ALP [Catalytic activity/Vol] 35 Int._Unit/L Normal 21-98 [facility] Comment on above: Performed By: #### 1 9985618, 2763111, 7027951, 6348061, 0101491, 1410538 ####[address] [place] [address] ALT No additional P-5'-P [Catalytic activity/Vol] 10 Int._Unit/L Normal 6-46 [facility] Comment on above: Performed By: #### 1 9126803, 5258838, 9531684, 5185851, 9393094, 8405803 ####[address] [place] [address] AST [Catalytic activity/Vol] 18 Int._Unit/L Normal 5-43 [facility] Comment on above: Performed By: #### 1 8937625, 7077866, 5876179, 0319343, 0103502, 6484717 ####[facility] [address] [place] [address] Bilirubin [Mass/Vol] 0.4 mg/dL Normal 0.0-1.1 [facility] Comment on above: Performed By: #### 1 6531306, 1376445, 5986172, 8708832, 1579136, 9517272 ####[address] [place] [address] Globulin (S) [Mass/Vol] 3.6 g/dL Normal 1.4-4.0 [facility] Comment on above: Performed By: #### 1 1750075, 9971769, 7099089, 5792305, 3257355, 8873592 ####[facility] [address] [place] [address] Protein [Mass/Vol] 6.7 g/dL Normal 6.0-7.8 [facility] Comment on above: Performed By: #### 1 1529471, 8109872, 8526686, 8242996, 4747492, 5865792 ####[facility] [address] [place] [address] Bilirubin.direct [Mass/Vol] mg/dL Normal 0.1-0.4 [facility] Comment on above: Performed By: #### 1 0356609, 5656213, 4598182, 5488608, 7146651, 5948877 ####[facility] [address] [place] [address] Lipase Levelon 07-25-2023 Lipase [Catalytic activity/Vol] 28 U/L Normal 13-58 [facility] Comment on above: Performed By: #### 1 2271108, 5795564, 0845965, 2540373, 2336750, 2277068 ####[facility] [address] [place] [address] UA With Cult Reflexon 2022 Bacteria LM Ql (Urine sed) TRACE Normal Trace [facility] Comment on above: Performed By: #### 2 223952, 95447360 ####[facility] [address] [place] [address] Bilirubin Ql (U) Negative Normal Negative [facility] Comment on above: Performed By: #### 2 268576, 72783326 ####[address] [address] Clarity (U) SL CLOUDY Abnormal Clear [facility] Comment on above: Performed By: #### 2 744596, 35400070 ####[facility] [address] [place] [address] Color (U) YELLOW Normal Yellow [facility] Comment on above: Performed By: #### 2 966985, 28757352 ####[facility] [address] [place] [address] Epithelial cells.squamous LM.HPF (Urine sed) [#/Area] 0-2 Normal 0-2 [facility] Comment on above: Performed By: #### 2 638338, 14407978 ####[facility] [address] [place] [address] Glucose Test strip (U) [Mass/Vol] Negative Normal Negative [facility] Comment on above: Performed By: #### 2 772537, 67525353 ####[facility] [address] [place] [address] Hemoglobin Ql (U) Negative Normal Negative [facility] Comment on above: Performed By: #### 2 049200, 73003996 ####[facility] [address] [place] [address] Ketones (U) [Mass/Vol] Negative Normal Negative [facility] Comment on above: Performed By: #### 2 526400, 66842752 ####[address] [address] [place].plasma/[place] .RBC (Bld) [Mass ratio] 0-3 Normal 0-3 [facility] Comment on above: Performed By: #### 2 299602, 60943093 ####[address] [address] Nitrite Ql (U) Negative Normal Negative [facility] Comment on above: Performed By: #### 2 517316, 22629935 ####[facility] [address] [place] [address] pH (U) 7.5 [pH] Invalid Interpretation Code 5.0-9.0 [facility] Comment on above: Performed By: #### 2 993214, 47259699 ####[facility] [address] [place] [address] Protein (U) [Mass/Vol] Negative Normal Negative [facility] Comment on above: Performed By: #### 2 035720, 76675810 ####[facility] [address] [place] [address] Specific gravity (U) [Rel density] 1.010 Invalid Interpretation Code 1.005-1.030 [facility] Comment on above: Performed By: #### 2 733632, 45961334 ####[address] [address] Type of Urine collection method Clean Catch Normal [facility] Comment on above: Performed By: #### 2 493432, 81967097 ####[facility] [address] [place] [address] Urobilinogen Qn (U) 1.0 {Rola'U}/dL Normal 0.0-1.0 [facility] Comment on above: Performed By: #### 2 322438, 13148285 ####[facility] [address] [place] [address] WBC Auto Ql (U) 2+ Abnormal Negative [facility] Comment on above: Performed By: #### 2 785499, 34701698 ####[facility] [address] [place] [address] WBC LM.HPF (Urine sed) [#/Area] 0-5 Normal 0-5 [facility] Comment on above: Performed By: #### 2 671518, 39244744 ####[facility] [address] [place] [address] URINALYSISOrdered By: Emy Aiken on 07-25-2023 Bacteria [...] AM) Normal Negative [facility] UA Auto SS [place].plasma/[place] .RBC (Bld) [Mass ratio] 0-3 /HPF Normal 0-3/HPF [facility] UA Auto SS Nitrite Ql (U) Negative (07/25/23 8:33 AM) Normal Negative FT UA Auto SS pH (U) 7.5 *NA* (07/25/23 8:33 AM) Invalid Interpretation Code 5.0 - 9.0 FT UA Auto SS Protein (U) [Mass/Vol] Negative (07/25/23 8:33 AM) Normal Negative [facility] UA Auto SS Specific gravity (U) [Rel density] 1.010 *NA* (07/25/23 8:33 AM) Invalid Interpretation Code 1.005 - 1.030 [facility] UA Auto SS UA Spec Desc Clean Catch (07/25/23 8:33 AM) Normal [facility] UA Auto SS Urobilinogen Qn (U) 1.1097687 {Rola'U}/dL Normal 0.0 - 1.0 EU/dL [facility] UA Auto SS WBC Auto Ql (U) 2+ *ABN* (07/25/23 8:33 AM) Invalid Interpretation Code Negative [facility] UA Auto SS WBC LM.HPF (Urine sed) [#/Area] 0-5 /HPF Normal 0-5/HPF [facility] UA Auto SS US Limitedon 07-25 US Limited Normal [facility] eGFRon 07-25-2023 GFR/1.73 sq M.predicted among non-blacks MDRD (S/P/Bld) [Vol rate/Area] 125 mL/min/1.73 m2 Normal >=59 [facility] Comment on above: Order Comment: Order added by Discern Expert. Result Comment: [place] lucy kidney disease could be indicated at eGFR's of less than 60 mL/min/1.73m2. Kidney failure is indicated at less than 15 mL/min/1.73m2. Performed By: #### 1 1059145, 8912606, 5744412, 2095073, 7743875, 5900325 ####[facility] [address] [place] [address] C Urineon 06-30-2023 Bacteria identified Cx Nom (U) Normal [facility] Comment on above: Performed By: #### 2 542071 ####[facility] [address] [place] [address] Family Medicine Office/Clini c Noteon 06-28-2023 [facility] Office/Clinic Note Normal [facility] Comment on above: Result Comment: Elec tronically Signed By: Roverto Vaz PA-C, V.\.br\Date and Time Signed: 06/28/23 11:41 EDT Patient Educationon 06-28-20 Patient Education Normal [facility] ABO/Rhon 06-14-2023 ABO/Rh Positive Invalid Interpretation Code [facility] Comment on above: Performed By: #### 2 998514 ####[facility] [address] [place] [address] Auto Diffon 06-14-2023 Basophils/100 WBC (Bld) 0.8 % Normal 0.0-2.0 [facility] Comment on above: Order Comment: Order Added by Discern Expert. Performed By: #### 2 000470, 3537224, 5606581, 7835124, 0814362, 70874431 ####[facility] [address] [place] [address] Basophils/Leukocytes Auto (Bld) [Pure # fraction] 0.0 E9/L Normal 0.0-0.2 [facility] Comment on above: Order Comment: Order Added by Discern Expert. Performed By: #### 2 786668, 3237474, 4775922, 6934172, 1962743, 05567099 ####[facility] [address] [place] [address] Eosinophils/100 WBC (Bld) 1.9 % Normal 0.0-8.0 [facility] Comment on above: Order Comment: Order Added by Discern Expert. Performed By: #### 2 624692, 2947489, 9542475, 5503540, 9828477, 27676958 ####[facility] [address] [place] [address] Eosinophils/Leukocytes Auto (Bld) [Pure # fraction] 0.1 E9/L Normal 0.0-0.5 [facility] Comment on above: Order Comment: Order Added by Discern Expert. Performed By: #### 2 142695, 0501496, 1661527, 1378086, 2278643, 44544884 ####[address] [place] [address] Lymphocytes/100 WBC (Bld) 24.5 % Normal 14.0-50.0 [facility] Comment on above: Order Comment: Order Added by Discern Expert. Performed By: #### 2 137086, 5117442, 3469856, 0591288, 1540962, 66843172 ####[address] [place] [address] Lymphocytes/Leukocytes Auto (Bld) [Pure # fraction] 1.3 E9/L Normal 1.0-4.0 [facility] Comment on above: Order Comment: Order Added by Discern Expert. Performed By: #### 2 687411, 1997911, 4059004, 6958959, 7041449, 83931076 ####[address] [address] Monocytes/100 WBC (Bld) 7.8 % Normal 4.0-14.0 [facility] Comment on above: Order Comment: Order Added by Discern Expert. Performed By: #### 2 690517, 1193683, 6645403, 9134331, 2400452, 97493076 ####[address] [place] [address] Monocytes/Leukocytes Auto (Bld) [Pure # fraction] 0.4 E9/L Normal 0.2-1.0 [facility] Comment on above: Order Comment: Order Added by Discern Expert. Performed By: #### 2 196820, 9679224, 3629751, 4344363, 7673336, 61590492 ####[address] [place] [address] Neutrophils/100 WBC (Bld) 65.0 % Normal 36.0-75.0 [facility] Comment on above: Order Comment: Order Added by Discern Expert. Performed By: #### 2 953579, 1589650, 2888897, 6169784, 7023875, 99703772 ####[facility] [address] [place] [address] Neutrophils/Leukocytes Auto (Bld) [Pure # fraction] 3.5 E9/L Normal 2.0-7.5 [facility] Comment on above: Order Comment: Order Added by Discern Expert. Performed By: #### 2 661233, 9860925, 8106571, 0904820, 4167113, 58608234 ####[facility] [address] [place] [address] BLOOD BANKOrdered By: Keila Kumar on 06-14-2023 ABO/Rh Interp Positive Invalid Interpretation Code [facility] BB Subsection BMPon 06-14-2023 Creatinine [Mass/Vol] 0.5 mg/dL Normal 0.5-1.3 [facility] Comment on above: Performed By: #### 2 318364, 3911203, 0599112, 7983311, 1336999, 80327690 ####[facility] [address] [place] [address] Urea nitrogen [Mass/Vol] 6 mg/dL Normal 5-21 [facility] Comment on above: Performed By: #### 2 180735, 4396307, 5341877, 5463795, 1254071, 92355427 ####[facility] [address] [place] [address] Urea nitrogen/Creatinine [Mass ratio] 12 No Units Normal 10-20 [facility] Comment on above: Performed By: #### 2 888608, 0879515, 1836856, 5483977, 9125427, 23044444 ####[facility] [address] [place] [address] Anion gap [Moles/Vol] 10 mmol/L Normal 6-16 [facility] Comment on above: Performed By: #### 2 206526, 1913523, 6107375, 3145332, 1973215, 20948217 ####[facility] [address] [place] [address] Calcium [Mass/Vol] 8.7 mg/dL Low 8.9-11.1 [facility] Comment on above: Performed By: #### 2 174534, 9654544, 7799165, 1095591, 3369672, 38677596 ####[facility] [address] [place] [address] Chloride [Moles/Vol] 107 mmol/L Normal 101-111 [facility] Comment on above: Performed By: #### 2 264843, 7770935, 6471482, 8791185, 2799030, 39628965 ####[facility] [address] [place] [address] CO2 [Moles/Vol] 21 mmol/L Normal 21-31 [facility] Comment on above: Performed By: #### 2 684911, 9306345, 8171982, 8923347, 2346988, 42918498 ####[facility] [address] [place] [address] Glucose [Mass/Vol] 77 mg/dL Normal 55-199 [facility] Comment on above: Result Comment: If t his glucose result represents a fasting glucose, interpretation should refer to the following reference range: 55-99 mg/dL Performed By: #### 2 833905, 4763415, 8820918, 6155035, 1790060, 40922275 ####[facility] [address] [place] [address] Potassium [Moles/Vol] 3.8 mmol/L Normal 3.5-5.3 [facility] Comment on above: Performed By: #### 2 586281, 5560175, 4688749, 5292247, 6400191, 18275246 ####[facility] [address] [place] [address] Sodium [Moles/Vol] 134 mmol/L Low 135-145 [facility] Comment on above: Performed By: #### 2 927278, 6870058, 8534836, 2325490, 7929858, 39523696 ####[facility] [address] [place] [address] BhCG Quanton 06-14-2023 HCG.beta subunit Qn 960822 m[IU]/mL High 1-3 [facility] Comment on above: Result Comment: GEST ATIONAL AGE HCG RANGE (mIU/mL) NON- <1-3 0.2-1 WEEKS 5-50 1-2 WEEKS 50-500 2-3 WEEKS 100-5,000 3-4 WEEKS 500-10,000 4-5 WEEKS 1,000-50,000 5-6 WEEKS 10,000-100,000 6-8 WEEKS 15,000-200,000 8-12 WEEKS 10,000-100,000 Performed By: #### 2 288478 ####[facility] [address] [place] [address] CBC w/ Auto Diffon Erythrocyte distribution width (RBC) [Ratio] 12.6 % Normal 10.9-14.2 [facility] Comment on above: Performed By: #### 2 081049, 7989805, 5608839, 6771724, 8579399, 71269644 ####[address] [place] [address] Hematocrit (Bld) [Volume fraction] 39.9 % Normal 34.0-46.0 [facility] Comment on above: Performed By: #### 2 215808, 8366089, 6297649, 1087694, 1848067, 79375497 ####[address] [place] [address] Hemoglobin (Bld) [Mass/Vol] 13.4 g/dL Normal 12.0-16.0 [facility] Comment on above: Performed By: #### 2 094591, 1116248, 2092358, 9063409, 5578982, 60664876 ####[address] [place] [address] MCH (RBC) [Entitic mass] 29.8 pg Normal 27.0-34.0 [facility] Comment on above: Performed By: #### 2 506612, 8229209, 1823409, 8518130, 3708367, 02065433 ####[address] [place] [address] MCHC (RBC) [Mass/Vol] 33.6 g/dL Normal 31.4-36.0 [facility] Comment on above: Performed By: #### 2 607135, 1841103, 5105972, 0864457, 9898275, 84786904 ####[address] [place] [address] MCV (RBC) [Entitic vol] 88.8 fL Normal 80.0-100.0 [facility] Comment on above: Performed By: #### 2 369513, 9116927, 5359440, 0849887, 1393231, 32252697 ####[address] [address] Platelet mean volume (Bld) [Entitic vol] 8.4 fL Normal 6.4-10.8 [facility] Comment on above: Performed By: #### 2 295876, 8319125, 7626619, 5166455, 3076532, 41203020 ####[place] [address] Platelets (Bld) [#/Vol] 225.0 E9/L Normal 150.0-500.0 [facility] Comment on above: Performed By: #### 2 605775, 0691213, 8486343, 0978127, 3127124, 68266027 ####[address] [address] RBC (Bld) [#/Vol] 4.5 E12/L Normal 4.3-5.9 [facility] Comment on above: Performed By: #### 2 759341, 6693170, 5521715, 9404260, 0473447, 62518218 ####[address] [address] WBC corrected for nucl RBC Auto (Bld) [#/Vol] 5.4 E9/L Normal 4.0-11.0 [facility] Comment on above: Performed By: #### 2 259430, 6455657, 2503380, 3200334, 1382803, 99276557 ####[facility] [address] [place] [address] CHEMISTRYOrdered By: SYSTEM SYSTEM on 06-14-2023 Albumin [...] 130 mL/min/1.73 m2 Normal >=59mL/min/ 1.73 m2 FT Chem S Globulin (S) [Mass/Vol] 3.3 g/dL Normal 1.4 - 4.0 gm/dL [facility] Remisol Glucose [Mass/Vol] 77 mg/dL Normal 55 - 199 mg/dL FT Remisol HCG.beta subunit Qn 780341 m[IU]/mL High 1 - 3 mIU/mL [facility] [...] Consent for Treatmenton 05-17 Consent for Treatment [id number]:12 [id number] Normal [facility] ED Clinical Summaryon 2022 ED Clinical Summary Normal [facility] ED Note-Physicianon 06-14-20 ED Note-Physician Normal [facility] Comment on above: Result Comment: Elec tronically Signed By: Jos Ugalde PA-C\.br\Date and Time Signed: 06/14/23 11:58 EDT\.br\Electronically Co-Signed By: Kristian Guillermo DO\.br\Date and Time Co-Signed: 06/14/23 17:02 EDT ED Patient Education Noteon 06-14-2023 ED Patient Education Note Normal [facility] ED Patient Summaryon 023 ED Patient Summary Normal [facility] HEMATOLOGYOrdered By: SYSTEM SYSTEM on 06-14-2023 [...] - 7.5 E9/L [facility] HemeAutoSS HEMATOLOGYOrdered By: Keila Kumar on 06-14-2023 [...] 4.5 E12/L Normal 4.3 - 5.9 E12/L [facility] HemeAutoSS WBC corrected for nucl RBC Auto (Bld) [#/Vol] 5.4 E9/L Normal 4.0 - 11.0 E9/L [facility] HemeAutoSS Hep Func Panelon 06-14-2023 Bilirubin.indirect [Mass or moles/Vol] UTC Abnormal 0.1-0.9 [facility] Comment on above: Result Comment: Resu lt verified by Discern Rule. Performed result UT (Unable to Calculate) was sent as an Alpha code due the inability to calculate a valid numeric value. Performed By: #### 2 136486, 0537761, 9404132, 1236011, 6218472, 86160591 ####[facility] [address] [place] [address] Albumin [Mass/Vol] 3.5 g/dL Normal 3.3-5.0 [facility] Comment on above: Performed By: #### 2 586192, 0624234, 1361014, 0743385, 4382527, 74944767 ####[facility] [address] [place] [address] Albumin/Globulin (S) [Mass conc ratio] 1.1 Normal 1.1-2.2 [facility] Comment on above: Performed By: #### 2 041882, 1181164, 6299661, 5475323, 5163271, [id number] ####[facility] [address] [place] [address] ALP [Catalytic activity/Vol] 34 Int._Unit/L Normal 21-98 [facility] Comment on above: Performed By: #### 2 004754, 8560270, 7248942, 0602793, 7319071, [id number] ####[facility] [address] [place] [address] ALT No additional P-5'-P [Catalytic activity/Vol] 13 Int._Unit/L Normal 6-46 [facility] Comment on above: Performed By: #### 2 135311, 9905758, 2970875, 8173232, 6314477, [id number] ####[facility] [address] [place] [address] AST [Catalytic activity/Vol] 17 Int._Unit/L Normal 5-43 [facility] Comment on above: Performed By: #### 2 [id number], 0423312, 2388793, 7670728, 3164310, [id number] ####[facility] [address] [place] [address] Bilirubin [Mass/Vol] 0.6 mg/dL Normal 0.0-1.1 [facility] Comment on above: Performed By: #### 2 216606, 2251440, 1833323, 5253158, 9658588, [id number] ####[address] [address] Globulin (S) [Mass/Vol] 3.3 g/dL Normal 1.4-4.0 [facility] Comment on above: Performed By: #### 2 792365, 2645111, 6591841, 3904372, 5126017, 90593346 ####[facility] [address] [place] [address] Protein [Mass/Vol] 6.8 g/dL Normal 6.0-7.8 [facility] Comment on above: Performed By: #### 2 621667, 2732018, 7185461, 3541996, 4412043, 72504333 ####[facility] [address] [place] [address] Bilirubin.direct [Mass/Vol] mg/dL Normal 0.1-0.4 [facility] Comment on above: Performed By: #### 2 335537, 6641477, 5147379, 8783219, 3581718, 27502746 ####[facility] [address] [place] [address] Lipase Levelon 06-14-2023 Lipase [Catalytic activity/Vol] 28 U/L Normal 13-58 [facility] Comment on above: Performed By: #### 2 245289, 9974979, 0948154, 8181878, 4561530, 65656597 ####[facility] [address] [place] [address] Progress Note-Nurseon 2022 Progress Note-Nurse Lizet RN verbalize d she was unable to locate patient at this time Normal [facility] UA With Cult Reflexon 2022 Bacteria LM Ql (Urine sed) TRACE Normal Trace [facility] Comment on above: Performed By: #### 1 7569955 ####[facility] [address] [facility] [place] [address] Bilirubin Ql (U) Negative Normal Negative [facility] Comment on above: Performed By: #### 1 0757753 ####[address] [address] Clarity (U) CLEAR Normal Clear [facility] Comment on above: Performed By: #### 1 9622041 ####[address] [address] Color (U) YELLOW Normal Yellow [facility] Comment on above: Performed By: #### 1 6332059 ####[address] [address] Epithelial cells.squamous LM.HPF (Urine sed) [#/Area] 3-4 Normal 0-2 [facility] Comment on above: Performed By: #### 1 7311142 ####[facility] [address] [place] [address] Glucose Test strip (U) [Mass/Vol] Negative Normal Negative [facility] Comment on above: Performed By: #### 1 3181955 ####[facility] [address] [place] [address] Hemoglobin Ql (U) Negative Normal Negative [facility] Comment on above: Performed By: #### 1 9376313 ####[address] [address] Ketones (U) [Mass/Vol] Negative Normal Negative [facility] Comment on above: Performed By: #### 1 3210964 ####[address] [address] [place].plasma/[place] .RBC (Bld) [Mass ratio] 0-3 Normal 0-3 [facility] Comment on above: Performed By: #### 1 3241912 ####[address] [address] Mucus Ql (Urine sed) TRACE Normal [facility] Comment on above: Performed By: #### 1 7036768 ####[address] [address] Nitrite Ql (U) Negative Normal Negative [facility] Comment on above: Performed By: #### 1 6499497 ####[address] [address] pH (U) 6.5 [pH] Invalid Interpretation Code 5.0-9.0 [facility] Comment on above: Performed By: #### 1 8731987 ####[address] [address] Protein (U) [Mass/Vol] Negative Normal Negative [facility] Comment on above: Performed By: #### 1 2925987 ####[address] [address] Specific gravity (U) [Rel density] 1.015 Invalid Interpretation Code 1.005-1.030 [facility] Comment on above: Performed By: #### 1 8641430 ####[address] [address] Type of Urine collection method Clean Catch Normal [facility] Comment on above: Performed By: #### 1 0784399 ####[address] [address] Urobilinogen Qn (U) 0.2 {Rola'U}/dL Normal 0.0-1.0 [facility] Comment on above: Performed By: #### 1 2604522 ####[address] [address] WBC Auto Ql (U) TRACE Abnormal Negative [facility] Comment on above: Performed By: #### 1 3873959 ####[facility] [address] [place] [address] WBC LM.HPF (Urine sed) [#/Area] 0-5 Normal 0-5 [facility] Comment on above: Performed By: #### 1 3712910 ####[facility] [address] [place] [address] URINALYSISOrdered By: An Mccarty on 06-14-2023 Bacteria [...] AM) Normal Negative [facility] UA Auto SS [place].plasma/[place] .RBC (Bld) [Mass ratio] 0-3 /HPF Normal [...] Desc Clean Catch (06/14/23 10:13 AM) Normal FT UA Auto SS Urobilinogen Qn (U) 0.1647178 {Rola'U}/dL Normal 0.0 - 1.0 EU/dL [facility] UA Auto SS WBC Auto Ql (U) Trace *ABN* (06/14/23 10:13 AM) Invalid Interpretation Code Negative [facility] UA Auto SS WBC LM.HPF (Urine sed) [#/Area] 0-5 /HPF Normal 0-5/HPF [facility] UA Auto SS US 1st Trimesteron 06-14-2023 US 1st Trimester Normal [facility] eGFRon 06-14-2023 GFR/1.73 sq M.predicted among non-blacks MDRD (S/P/Bld) [Vol rate/Area] 130 mL/min/1.73 m2 Normal >=59 [facility] Comment on above: Order Comment: Order added by Discern Expert. Result Comment: Forest Ranger lucy kidney disease could be indicated at eGFR's of less than 60 mL/min/1.73m2. Kidney failure is indicated at less than 15 mL/min/1.73m2. Performed By: #### 2 830415, 1104981, 4570795, 8693383, 3248042, 74330324 ####[facility] [address] [place] [address] CHEMISTRYOrdered By: SYSTEM SYSTEM on 06-12-2023 TSH Qn 3.80 m[IU]/L Normal 0.34 - 5.60 mcIU/mL [facility] Remisol Consent for Treatmenton 05-16 Consent for Treatment [id number]#1.00CD:12 7 Normal [facility] Physician Orderon 06-12-2023 Physician Order [id number]#1.00CD:12 7 Normal [facility] TSHon 06-12-2023 TSH Qn 3.80 m[IU]/L Normal 0.34-5.60 [facility] Comment on above: Performed By: #### 2 469955 ####[facility] [address] [place] [address] BhCG Quanton 05-22-2023 HCG.beta subunit Qn 446685 m[IU]/mL High 1-3 [facility] Comment on above: Result Comment: GEST ATIONAL AGE HCG RANGE (mIU/mL) NON- <1-3 0.2-1 WEEKS 5-50 1-2 WEEKS 50-500 2-3 WEEKS 100-5,000 3-4 WEEKS 500-10,000 4-5 WEEKS 1,000-50,000 5-6 WEEKS 10,000-100,000 6-8 WEEKS 15,000-200,000 8-12 WEEKS 10,000-100,000 Performed By: #### 2 961062 ####[facility] [address] [place] [address] Discharge Instructionson Discharge Instructions [id number]#[id number]:1 27 Normal [facility] ED Clinical Summaryon 2022 ED Clinical Summary Normal [facility] ED Note-Physicianon 05-22-20 ED Note-Physician Normal [facility] Comment on above: Result Comment: Elec tronically Signed By: Gopi Rodriguez DO\.br\Date and Time Signed: 05/21/23 23:17 EDT ED Patient Education Noteon 05-22-2023 ED Patient Education Note Normal [facility] ED Patient Summaryon 023 ED Patient Summary Normal [facility] UA With Cult Reflexon 2022 Bacteria LM Ql (Urine sed) TRACE Normal Trace [facility] Comment on above: Performed By: #### 1 8344028 ####[facility] [address] [place] [address] Bilirubin Ql (U) Negative Normal Negative [facility] Comment on above: Performed By: #### 1 4544784 ####[facility] [address] [place] [address] Clarity (U) CLEAR Normal Clear [facility] Comment on above: Performed By: #### 1 9010369 ####[facility] [address] [place] [address] Color (U) DARK YELLO Abnormal Yellow [facility] Comment on above: Performed By: #### 1 4558256 ####[facility] [address] [place] [address] Epithelial cells.squamous LM.HPF (Urine sed) [#/Area] 0-2 Normal 0-2 [facility] Comment on above: Performed By: #### 1 3628928 ####[facility] [address] [place] [address] Glucose Test strip (U) [Mass/Vol] Negative Normal Negative [facility] Comment on above: Performed By: #### 1 5993813 ####[address] [address] Hemoglobin Ql (U) TRACE Abnormal Negative [facility] Comment on above: Performed By: #### 1 5302910 ####[facility] [address] [place] [address] Ketones (U) [Mass/Vol] TRACE Abnormal Negative [facility] Comment on above: Performed By: #### 1 2665639 ####[facility] [address] [place] [address] [place].plasma/[place] .RBC (Bld) [Mass ratio] 4-20 Normal 0-3 [facility] Comment on above: Performed By: #### 1 3836070 ####[facility] [address] [facility] [place] [address] Mucus Ql (Urine sed) 1+ Normal [facility] Comment on above: Performed By: #### 1 3134239 ####[facility] [address] [place] [address] Nitrite Ql (U) Negative Normal Negative [facility] Comment on above: Performed By: #### 1 8337223 ####[facility] [address] [place] [address] pH (U) 6.0 [pH] Invalid Interpretation Code 5.0-9.0 [facility] Comment on above: Performed By: #### 1 6118732 ####[place] [address] Protein (U) [Mass/Vol] 2+ Abnormal Negative [facility] Comment on above: Performed By: #### 1 2080693 ####[place] [address] Specific gravity (U) [Rel density] >=1.030 Invalid Interpretation Code 1.005-1.030 [facility] Comment on above: Performed By: #### 1 3790631 ####[place] [address] Type of Urine collection method Clean Catch Normal [facility] Comment on above: Performed By: #### 1 4401216 ####[place] [address]57 Urobilinogen Qn (U) 0.2 {Rola'U}/dL Normal 0.0-1.0 [facility] Comment on above: Performed By: #### 1 7318765 ####[place] [address]8557 WBC Auto Ql (U) Negative Normal Negative [facility] Comment on above: Performed By: #### 1 7510444 ####[place] [address]8557 WBC LM.HPF (Urine sed) [#/Area] 0-5 Normal 0-5 [facility] Comment on above: Performed By: #### 1 2477510 ####[address] [address] US 1st Trimesteron 05-22-2023 US 1st Trimester Normal [facility] Auto Diffon 05-21-2023 Basophils/100 WBC (Bld) 1.0 % Normal 0.0-2.0 [facility] Comment on above: Order Comment: Order Added by Discern Expert. Performed By: #### 2 358316, 3399090, 49867988, 73773070, 6882830, 6772325, 3977112 ####[place] [address] [place] [address] Basophils/Leukocytes Auto (Bld) [Pure # fraction] 0.1 E9/L Normal 0.0-0.2 [facility] Comment on above: Order Comment: Order Added by Discern Expert. Performed By: #### 2 936999, 8968154, 02616096, 84802885, 1426367, 0102521, 8101201 ####[place] [address] [place] [address] Eosinophils/100 WBC (Bld) 1.5 % Normal 0.0-8.0 [facility] Comment on above: Order Comment: Order Added by Discern Expert. Performed By: #### 2 436750, 7110050, 58956917, 77368759, 1199929, 6821035, 9999665 ####[address] [address] Eosinophils/Leukocytes Auto (Bld) [Pure # fraction] 0.1 E9/L Normal 0.0-0.5 [facility] Comment on above: Order Comment: Order Added by Discern Expert. Performed By: #### 2 283258, 8433551, 44345331, 30875841, 8383538, 6438415, 5209399 ####[address] [address] Lymphocytes/100 WBC (Bld) 36.6 % Normal 14.0-50.0 [facility] Comment on above: Order Comment: Order Added by Discern Expert. Performed By: #### 2 327787, 4361130, 92942476, 40595872, 1739717, 4495667, 4193228 ####[place] [address] [place] [address] Lymphocytes/Leukocytes Auto (Bld) [Pure # fraction] 2.5 E9/L Normal 1.0-4.0 [facility] Comment on above: Order Comment: Order Added by Discern Expert. Performed By: #### 2 445353, 1947602, 69288993, 55282512, 7836056, 3726250, 4960525 ####[facility] [address] [place] [address] Monocytes/100 WBC (Bld) 8.2 % Normal 4.0-14.0 [facility] Comment on above: Order Comment: Order Added by Discern Expert. Performed By: #### 2 593437, 2353462, 58559209, 92860988, 2013033, 5850645, 6669505 ####[facility] [address] [place] [address] Monocytes/Leukocytes Auto (Bld) [Pure # fraction] 0.6 E9/L Normal 0.2-1.0 [facility] Comment on above: Order Comment: Order Added by Gisselle Expert. Performed By: #### 2 369177, 6777411, 51701270, 97314641, 0043428, 5209254, 6614726 ####[facility] [address] [place] [address] Neutrophils/100 WBC (Bld) 52.7 % Normal 36.0-75.0 [facility] Comment on above: Order Comment: Order Added by Gisselle Expert. Performed By: #### 2 911987, 9696837, 23194412, 86574416, 2542884, 6802556, 1965293 ####[facility] [address] [place] [address] Neutrophils/Leukocytes Auto (Bld) [Pure # fraction] 3.6 E9/L Normal 2.0-7.5 [facility] Comment on above: Order Comment: Order Added by Gisselle Expert. Performed By: #### 2 946033, 0399382, 05090019, 59672845, 9214872, 1851164, 7850793 ####[facility] [address] [place] [address] BMPon 05-21-2023 Creatinine [Mass/Vol] 0.7 mg/dL Normal 0.5-1.3 [facility] Comment on above: Performed By: #### 2 124994, 7920500, 22638790, 35739890, 3364842, 5920083, 4641427 ####[facility] [address] [place] [address] Urea nitrogen [Mass/Vol] 8 mg/dL Normal 5-21 [facility] Comment on above: Performed By: #### 2 879372, 9251268, 09217868, 70834101, 9960198, 5848188, 0558302 ####[facility] [address] [place] [address] Urea nitrogen/Creatinine [Mass ratio] 11 No Units Normal 10-20 [facility] Comment on above: Performed By: #### 2 398765, 0209953, 84948288, 14307281, 1613143, 5489554, 3648046 ####[facility] [address] [place] [address] Anion gap [Moles/Vol] 12 mmol/L Normal 6-16 [facility] Comment on above: Performed By: #### 2 263632, 7683762, 68267982, 60099592, 6681934, 1040017, 2602766 ####[facility] [address] [place] [address] Calcium [Mass/Vol] 9.2 mg/dL Normal 8.9-11.1 [facility] Comment on above: Performed By: #### 2 666248, 2219506, 08678398, 16282292, 7828542, 3275228, 8326756 ####[facility] [address] [place] [address] Chloride [Moles/Vol] 104 mmol/L Normal 101-111 [facility] Comment on above: Performed By: #### 2 062685, 7997975, 78754288, 03519412, 1240206, 4017940, 3758532 ####[facility] [address] [place] [address] CO2 [Moles/Vol] 24 mmol/L Normal 21-31 [facility] Comment on above: Performed By: #### 2 191618, 0682507, 82582423, 06589067, 0178015, 2760996, 3233482 ####[facility] [address] [place] [address] Glucose [Mass/Vol] 87 mg/dL Normal 55-199 [facility] Comment on above: Result Comment: If t his glucose result represents a fasting glucose, interpretation should refer to the following reference range: 55-99 mg/dL Performed By: #### 2 232613, 4982834, 39480181, 23426112, 1532106, 4475663, 5915349 ####[facility] [address] [place] [address] Potassium [Moles/Vol] 3.2 mmol/L Low 3.5-5.3 [facility] Comment on above: Performed By: #### 2 967289, 4489770, 96908000, 86292377, 4452421, 5963977, 6324361 ####[facility] [address] [place] [address] Sodium [Moles/Vol] 137 mmol/L Normal 135-145 [facility] Comment on above: Performed By: #### 2 296185, 0988650, 25026373, 67997395, 3551493, 1300558, 6404300 ####[facility] [address] [place] [address] CBC w/ Auto Diffon 3 Erythrocyte distribution width (RBC) [Ratio] 13.3 % Normal 10.9-14.2 [facility] Comment on above: Performed By: #### 2 373056, 3357283, 65264870, 28521852, 6504700, 6093291, 5332476 ####[facility] [address] [place] [address] Hematocrit (Bld) [Volume fraction] 39.0 % Normal 34.0-46.0 [facility] Comment on above: Performed By: #### 2 668058, 9430040, 30886583, 78528881, 0430256, 9861373, 3139247 ####[facility] [address] [place] [address] Hemoglobin (Bld) [Mass/Vol] 13.3 g/dL Normal 12.0-16.0 [facility] Comment on above: Performed By: #### 2 944965, 5762242, 82838821, 86021682, 4799029, 2986032, 9289773 ####[facility] [address] [place] [address] MCH (RBC) [Entitic mass] 30.3 pg Normal 27.0-34.0 [facility] Comment on above: Performed By: #### 2 941673, 9676702, 69666511, 29562853, 3482600, 0034760, 6190362 ####[address] [address] MCHC (RBC) [Mass/Vol] 34.2 g/dL Normal 31.4-36.0 [facility] Comment on above: Performed By: #### 2 863762, 1267642, 76319126, 97840853, 9947263, 2799446, 3642342 ####[address] [address] MCV (RBC) [Entitic vol] 88.7 fL Normal 80.0-100.0 [facility] Comment on above: Performed By: #### 2 680274, 6869706, 78779401, 33601373, 7849703, 3973599, 5806158 ####[place] [address] [place] [address] Platelet mean volume (Bld) [Entitic vol] 7.8 fL Normal 6.4-10.8 [facility] Comment on above: Performed By: #### 2 408659, 5214231, 29273059, 88295680, 0940932, 7482632, 8071387 ####[facility] [place] [address] Platelets (Bld) [#/Vol] 225.0 E9/L Normal 150.0-500.0 [facility] Comment on above: Performed By: #### 2 379444, 5865275, 97370913, 16774981, 9845594, 0476833, 1294679 ####[facility] [address] [place] [address] RBC (Bld) [#/Vol] 4.4 E12/L Normal 4.3-5.9 [facility] Comment on above: Performed By: #### 2 128018, 3195449, 70242849, 79841437, 1934205, 7352801, 7364735 ####[facility] [address] [place] [address] WBC corrected for nucl RBC Auto (Bld) [#/Vol] 6.8 E9/L Normal 4.0-11.0 [facility] Comment on above: Performed By: #### 2 378543, 6304684, 08253129, 02096274, 6977193, 9447170, 4797153 ####[facility] [address] [place] [address] CHEMISTRYOrdered By: SYSTEM SYSTEM on 05-21-2023 HCG.beta subunit Qn 144212 m[IU]/mL High 1 - 3 mIU/mL [facility] [...] 1 11 mmol/L [facility] Remisol CO2 [Moles/Vol] 24 mmol/L Normal 21 - 31 mmol/L [facility] Remisol Creatinine [Mass/Vol] 0.7 mg/dL Normal 0.5 - 1.3 mg/dL FT Remisol GFR/1.73 sq M.predicted among non-blacks MDRD (S/P/Bld) [Vol rate/Area] 120 mL/min/1.73 m2 Normal >=59mL/min/ 1.73 m2 [facility] Chem S Globulin (S) [Mass/Vol] 3.1 g/dL [...] Remisol Consent for Treatmenton Consent for Treatment [id number]:12 7 Normal [facility] HEMATOLOGYOrdered By: SYSTEM SYSTEM on 05-21-2023 [...] 34.2 g/dL Normal 31.4 - 36.0 gm/dL FT HemeAutoSS MCV (RBC) [Entitic vol] 88.7 fL Normal 80.0 - 100.0 fL FT HemeAutoSS Platelet mean volume (Bld) [Entitic vol] 7.8 fL Normal 6.4 - 10.8 fL FT HemeAutoSS Platelets (Bld) [#/Vol] 225.0 E9/L Normal 150.0 - 500.0 E9/L FT HemeAutoSS RBC (Bld) [#/Vol] 4.4 E12/L Normal 4.3 - 5.9 E12/L [facility] HemeAutoSS WBC corrected for nucl RBC Auto (Bld) [#/Vol] 6.8 E9/L Normal 4.0 - 11.0 E9/L [facility] HemeAutoSS Hep Func Panelon 05-21-2023 Bilirubin.indirect [Mass or moles/Vol] UTC Abnormal 0.1-0.9 [facility] Comment on above: Result Comment: Resu lt verified by Discern Rule. Performed result UTC (Unable to Calculate) was sent as an Alpha code due the inability to calculate a valid numeric value. Performed By: #### 2 165651, 5614493, 70107155, 24065051, 0074758, 5548438, 7002978 ####[facility] [address] [place] [address] Albumin [Mass/Vol] 3.8 g/dL Normal 3.3-5.0 [facility] Comment on above: Performed By: #### 2 045664, 6370746, 76691929, 95024922, 1608741, 0178748, 3413432 ####[facility] [address] [place] [address] Albumin/Globulin (S) [Mass conc ratio] 1.2 Normal 1.1-2.2 [facility] Comment on above: Performed By: #### 2 531940, 9748896, 57836615, 99218026, 7958439, 4902708, 7275907 ####[facility] [address] [place] [address] ALP [Catalytic activity/Vol] 42 Int._Unit/L Normal 21-98 [facility] Comment on above: Performed By: #### 2 384012, 8054870, 88758790, 00731196, 7743886, 6733711, 8134924 ####[facility] [address] [place] [address] ALT No additional P-5'-P [Catalytic activity/Vol] 13 Int._Unit/L Normal 6-46 [facility] Comment on above: Performed By: #### 2 467099, 1036665, 36735208, 79867409, 2091618, 3435016, 7370776 ####[place] [address] [place] [address] AST [Catalytic activity/Vol] 14 Int._Unit/L Normal 5-43 [facility] Comment on above: Performed By: #### 2 428453, 9826787, 81990730, 42213042, 8258599, 9343661, 9048919 ####[address] [address] Bilirubin [Mass/Vol] 0.5 mg/dL Normal 0.0-1.1 [facility] Comment on above: Performed By: #### 2 351838, 1264057, 05530900, 49231658, 4345529, 6222884, 6874897 ####[address] [address] Globulin (S) [Mass/Vol] 3.1 g/dL Normal 1.4-4.0 [facility] Comment on above: Performed By: #### 2 986867, 7277107, 50524387, 37504869, 9957509, 7336872, 3460596 ####[place] [address] [place] [address] Protein [Mass/Vol] 6.9 g/dL Normal 6.0-7.8 [facility] Comment on above: Performed By: #### 2 621415, 3275483, 42776552, 46812632, 8358522, 3154628, 5261546 ####[facility] [address] [place] [address] Bilirubin.direct [Mass/Vol] mg/dL Normal 0.1-0.4 [facility] Comment on above: Performed By: #### 2 433342, 5953234, 11354940, 11763457, 7593482, 7328477, 2585422 ####[facility] [address] [place] [address] Lipase Levelon 05-21-2023 Lipase [Catalytic activity/Vol] 31 U/L Normal 13-58 [facility] Comment on above: Performed By: #### 2 582051, 7187913, 41792476, 79770119, 3389820, 7395930, 4084382 ####[facility] [address] [place] [address] Troponin 0 Hr.on 05-21-2023 Troponin I.cardiac [Mass/Vol] 2.50 pg/mL Low 10.10-27.10 [facility] Comment on above: Result Comment: The 95% CI (Confidence Interval) PPV (Positive Predictive Value) for myocardial infarction in females is 38 pg/mL, in males 51 pg/mL. The results should be used in conjunction with clinical conditions of myocardial infarction.(Access High Sensitivity Troponin I Instructions For Use, Ziggy Regina, May 2018) Performed By: #### 2 697001, 4127292, 24367870, 15748560, 3748934, 0859057, 7508687 ####[facility] [address] [place] [address] URINALYSISOrdered By: Jose Miguel nelson on 05-21-2023 [...] Interpretation Code Negative [facility] UA Auto SS [place].plasma/[place] .RBC (Bld) [Mass ratio] 4-20 /HPF Normal [...] FT UA Auto SS Urobilinogen Qn (U) 0.7453525 {Rola'U}/dL Normal 0.0 - 1.0 EU/dL [facility] UA Auto SS WBC Auto Ql (U) Negative (05/21/23 10:17 PM) Normal Negative [facility] UA Auto SS WBC LM.HPF (Urine sed) [#/Area] 0-5 /HPF Normal 0-5/HPF [facility] UA Auto SS eGFRon 05-21-2023 GFR/1.73 sq M.predicted among non-blacks MDRD (S/P/Bld) [Vol rate/Area] 120 mL/min/1.73 m2 Normal >=59 [facility] Comment on above: Order Comment: Order added by Discern Expert. Result Comment: Forest Ranger lucy kidney disease could be indicated at eGFR's of less than 60 mL/min/1.73m2. Kidney failure is indicated at less than 15 mL/min/1.73m2. Performed By: #### 2 842605, 1966645, [id number] ####[facility] [id number] [place] [address] PAP [id number] 05-03-2023 C. trachomatis rRNA MAHAD+probe Ql (Cvx) Negative Invalid Interpretation Code Negative [facility] Comment on above: Performed By: #### 3 [id number] ####[facility] [id number] [place] [address] Cytology report Cyto stain Doc (Cvx/Vag) Note Invalid Interpretation Code [facility] Comment on above: Result Comment: TEST S RESULT FLAG UNITS REF RANGE LAB Clinician Provided Cytology InformationSource.............EndocervixNo. of containers..01 ThinPrep VialDIAGNOSIS: 01NEGATIVE FOR INTRAEPITHELIAL LESION OR MALIGNANCY.Specimen adequacy: 01Satisfactory for evaluation. Endocervical and/or squamous metaplasticcells (endocervical component) are present.Performed by: Eliana Shea Hat Measurer (ASCP). 01Note: Note 01The Pap smear is [...] Low,HH-Alert High<-Panic Low,>-Panic High,A-Abnormal,AA-Critical Abnormal -----Performed at:[address] [place] [address]BxasruJoya Walton MD, Performed By: #### 3 [id number] ####[facility] [address] [place] [address] N. gonorrhoeae rRNA MAHAD+probe Ql (Cvx) Negative Invalid Interpretation Code Negative [facility] Comment on above: Result Comment: Perf ormed at: LabAccipiter SystemsTyloqeosss[address] [id number] MD Anton HinsonPerformed at: =G [facility] [address] [id number] MD Anton Hinson Performed By: #### 3 [id number] ####[facility] [address] [place] [address] C Urineon 05-02-2023 Bacteria identified Cx Nom (U) Normal [facility] Comment on above: Performed By: #### 2 680237 ####[facility] [address] [place] [address] HIV Screen 4th Generation wR fxon 05-01-2023 HIV 1+2 Ab+HIV1 p24 Ag IA Ql Non-Reactive Invalid Interpretation Code Non Reactive [facility] Comment on above: Result Comment: HIV NegativeHIV-1/HIV-2 antibodies and HIV-1 p24 antigen were NOT detected.There is no laboratory evidence of HIV infection.Performed at: [employer] [place] [id number] PhD Caroline East Performed By: #### 1 [id number], 37906605, 231852570, 6776848, 7548115 ####[facility] [address] [place] [address] Hep Bs Agon 05-01-2023 HBV surface Ag IA Ql Negative Invalid Interpretation Code Negative [facility] Comment on above: Result Comment: Perf ormed at: [id number] [place], [place] [id number] PhD Caroline East Performed By: #### 1 [id number], 01743627, 135764768, 9086482, 0127849 ####[address] [address] RPR with Conf Rfxon 05-01-20 23 Reagin Ab RPR Ql (S) Non-Reactive Invalid Interpretation Code Non Reactive [facility] Comment on above: Result Comment: Perf ormed at: [address] [place], [place] [id number] PhD Caroline East Performed By: #### 1 [id number], 80761370, 319712447, 1545193, 9921837 ####[address] [address] Rubella IgGon 05-01-2023 Rubella virus IgG Qn (S) [IU]/mL Low Immune >0.99 [facility] Comment on above: Result Comment: Non- immune <0.90Equivocal 0.90 - 0.99Immune >0.99Performed at: [address] [place], [place] [id number] PhD Caroline East Performed By: #### 1 [id number], 67973474, 594634365, 1777000, 2926213 ####[facility] [address] [place] [address] ABO/Rhon 04-30-2023 ABO/Rh Positive Invalid Interpretation Code [facility] Comment on above: Performed By: #### 2 854351, 67300060 ####[facility] [address] [place] [address] ABSCon 04-30-2023 ABSC Gel Interp Negative Normal [facility] Comment on above: Performed By: #### 2 572915, 24245362 ####[facility] [address] [place] [address] BLOOD BANKOrdered By: Diamond Junior on 04-30-2023 ABO/Rh Interp Positive Invalid Interpretation Code [facility] BB Subsection ABSC Gel Interp Negative (04/30/23 9:30 AM) Normal [facility] BB Subsection BhCG Quanton 04-30-2023 [place] [address] m[IU]/mL High 1-3 F [facility] Comment on above: Result Comment: GEST ATIONAL AGE HCG RANGE (mIU/mL) NON- <1-3 0.2-1 WEEKS 5-50 1-2 WEEKS 50-500 2-3 WEEKS 100-5,000 3-4 WEEKS 500-10,000 4-5 WEEKS 1,000-50,000 5-6 WEEKS 10,000-100,000 6-8 WEEKS 15,000-200,000 8-12 WEEKS 10,000-100,000 Performed By: #### 2 990606 ####[facility] [address] [place] [address] CBC w/Indiceson 04-30-2023 Erythrocyte distribution width (RBC) [Ratio] 13.7 % Normal 10.9-14.2 [facility] Comment on above: Performed By: #### 1 [id number], 58522795, 159414522, 6573222, 3901134 ####[facility] [address] [place] [address] Hematocrit (Bld) [Volume fraction] 40.7 % Normal 34.0-46.0 [facility] Comment on above: Performed By: #### 1 60121406, 02745505, 243930090, 8658886, 5722317 ####[facility] [address] [place] [address] Hemoglobin (Bld) [Mass/Vol] 13.8 g/dL Normal 12.0-16.0 [facility] Comment on above: Performed By: #### 1 46347804, 47555930, 628341420, 2358712, 1036387 ####[facility] [address] [place] [address] MCH (RBC) [Entitic mass] 30.5 pg Normal 27.0-34.0 [facility] Comment on above: Performed By: #### 1 55971547, 29644800, 586823849, 3467259, 0639492 ####[address] [place] [address] MCHC (RBC) [Mass/Vol] 33.9 g/dL Normal 31.4-36.0 [facility] Comment on above: Performed By: #### 1 13570779, 82647056, 699688426, 7401902, 4691607 ####[address] [address] MCV (RBC) [Entitic vol] 89.9 fL Normal 80.0-100.0 [facility] Comment on above: Performed By: #### 1 23532562, 95740246, 518490000, 2997865, 3099945 ####[address] [address] Platelet mean volume (Bld) [Entitic vol] 8.2 fL Normal 6.4-10.8 [facility] Comment on above: Performed By: #### 1 63838317, 42335121, 551062119, 5817511, 2714394 ####[address] [place] [address] Platelets (Bld) [#/Vol] 279.0 E9/L Normal 150.0-500.0 [facility] Comment on above: Performed By: #### 1 54821376, 29340624, 844181222, 5673139, 3182844 ####[address] [place] [address] RBC (Bld) [#/Vol] 4.5 E12/L Normal 4.3-5.9 [facility] Comment on above: Performed By: #### 1 59085069, 93671853, 496273779, 4911147, 5094652 ####[facility] [address] [place] [address] WBC corrected for nucl RBC Auto (Bld) [#/Vol] 5.8 E9/L Normal 4.0-11.0 [facility] Comment on above: Performed By: #### 1 15026357, 01101477, 073675443, 7296739, 6230578 ####[facility] [address] [place] [address] CHEMISTRYOrdered By: SYSTEM SYSTEM on 04-30-2023 [place] [address] m[IU]/mL High 1 - 3 mIU/mL [facility] Remisol Consent for Treatmenton 04-14 Consent for Treatment [id number]#1.00CD:12 7 Normal [facility] HEMATOLOGYOrdered By: Temi Romero on 04-30-2023 [...] 279.0 E9/L Normal 150.0 - 500.0 E9/L [facility] HemeAutoSS RBC (Bld) [#/Vol] 4.5 E12/L Normal 4.3 - 5.9 E12/L [facility] HemeAutoSS WBC corrected for nucl RBC Auto (Bld) [#/Vol] 5.8 E9/L Normal 4.0 - 11.0 E9/L [facility] HemeAutoSS PAP [id number] 04-30-2023 Collection Technique BRUSH-SPATULA Normal F [facility] Comment on above: Performed By: #### 3 [id number] ####[facility] [address] [place] [address] Gynecological Body Site ENDOCERVIX Normal [facility] Comment on above: Performed By: #### 3 [id number] ####[facility] [address] [place] [address] Physician Orderon 04-30-2023 Physician Order [id number]#1.00CD:1 27 Normal [facility] Physician Order [id number]#1.00CD:1 27 Normal [facility] BhCG Quanton 04-26-2023 [place] [address] m[IU]/mL High 1-3 F [facility] Comment on above: Result Comment: GEST ATIONAL AGE HCG RANGE (mIU/mL) NON- <1-3 0.2-1 WEEKS 5-50 1-2 WEEKS 50-500 2-3 WEEKS 100-5,000 3-4 WEEKS 500-10,000 4-5 WEEKS 1,000-50,000 5-6 WEEKS 10,000-100,000 6-8 WEEKS 15,000-200,000 8-12 WEEKS 10,000-100,000 Performed By: #### 2 318839 ####[facility] [address] [place] [address] CHEMISTRYOrdered By: SYSTEM SYSTEM on 04-26-2023 [place] [address] m[IU]/mL High 1 - 3 mIU/mL [facility] Remisol Consent for Treatmenton 04-14 Consent for Treatment [id number]#1.00CD:12 7 Normal [facility] Discharge Instructionson Discharge Instructions [id number]#1.00CD:1 27 Normal [facility] ED Clinical Summaryon 2022 ED Clinical Summary Normal [facility] ED Note-Physicianon 04-26-20 ED Note-Physician Normal [facility] Comment on above: Result Comment: Elec tronically Signed By: Jos Ugalde PA-C\.br\Date and Time Signed: 04/26/23 10:59 EDT\.br\Electronically Co-Signed By: Laura Noel M.D.\.br\Date and Time Co-Signed: 04/26/23 11:01 EDT ED Patient Education Noteon 04-26-2023 ED Patient Education Note Normal [facility] ED Patient Summaryon 023 ED Patient Summary Normal [facility] UA With Cult Reflexon 2022 Bilirubin Ql (U) Negative Normal Negative [facility] Comment on above: Performed By: #### 1 [id number] ####[facility] [address] [place] [address] Clarity (U) CLEAR Normal Clear [facility] Comment on above: Performed By: #### 1 3510779 ####[facility] [address] [place] [address] Color (U) YELLOW Normal Yellow [facility] Comment on above: Performed By: #### 1 5975850 ####[facility] [address] [place] [address] Crystals LM Ql (Urine sed) Present Normal [facility] Comment on above: Performed By: #### 1 4988780 ####[facility] [address] [place] [address] Epithelial cells.squamous LM.HPF (Urine sed) [#/Area] 0-2 Normal 0-2 [facility] Comment on above: Performed By: #### 1 8113348 ####[facility] [address] [place] [address] Glucose Test strip (U) [Mass/Vol] Negative Normal Negative [facility] Comment on above: Performed By: #### 1 9388438 ####[facility] [address] [place] [address] Hemoglobin Ql (U) Negative Normal Negative [facility] Comment on above: Performed By: #### 1 0702041 ####[address] [place] [address] Ketones (U) [Mass/Vol] Negative Normal Negative [facility] Comment on above: Performed By: #### 1 9339017 ####[address] [address] [place].plasma/[place] .RBC (Bld) [Mass ratio] 0-3 Normal 0-3 [facility] Comment on above: Performed By: #### 1 4068685 ####[address] [address] Mucus Ql (Urine sed) 2+ Normal [facility] Comment on above: Performed By: #### 1 7875000 ####[address] [address] Nitrite Ql (U) Negative Normal Negative [facility] Comment on above: Performed By: #### 1 8463964 ####[address] [address] pH (U) 8.5 [pH] Invalid Interpretation Code 5.0-9.0 [facility] Comment on above: Performed By: #### 1 4323281 ####[address] [address] Protein (U) [Mass/Vol] Negative Normal Negative [facility] Comment on above: Performed By: #### 1 0497087 ####[address] [address] Specific gravity (U) [Rel density] 1.015 Invalid Interpretation Code 1.005-1.030 [facility] Comment on above: Performed By: #### 1 1352404 ####[address] [place] [address] Type of Urine collection method Clean Catch Normal [facility] Comment on above: Performed By: #### 1 6973085 ####[facility] [address] [place] [address] Urobilinogen Qn (U) 1.0 {Rola'U}/dL Normal 0.0-1.0 [facility] Comment on above: Performed By: #### 1 5420003 ####[place] [address] WBC Auto Ql (U) Negative Normal Negative [facility] Comment on above: Performed By: #### 1 2963224 ####[facility] [address] [place] [address] WBC LM.HPF (Urine sed) [#/Area] 0-5 Normal 0-5 [facility] Comment on above: Performed By: #### 1 7294501 ####[place] [address] URINALYSISOrdered By: An Lassiter on 04-26-2023 Bilirubin Ql (U) Negative (04/26/23 9:15 AM) Normal Negative [facility] UA Auto SS Clarity (U) Clear (04/26/23 9:15 AM) Normal Clear [facility] UA Auto SS Color (U) Yellow (04/26/23 9:15 AM) Normal Yellow [facility] UA Auto SS Crystals LM Ql (Urine sed) Present (04/26/23 9:15 AM) Normal [facility] UA Auto SS Epithelial cells.squamous LM.HPF (Urine sed) [#/Area] 0-2 /HPF Normal 0-2/HPF [facility] UA Auto SS Glucose Test strip (U) [Mass/Vol] Negative (04/26/23 9:15 AM) Normal Negative [facility] UA Auto SS Hemoglobin Ql (U) Negative (04/26/23 9:15 AM) Normal Negative [facility] UA Auto SS Ketones (U) [Mass/Vol] Negative (04/26/23 9:15 AM) Normal Negative [facility] UA Auto SS [place].plasma/[place] .RBC (Bld) [Mass ratio] 0-3 /HPF Normal [...] Desc Clean Catch (04/26/23 9:15 AM) Normal [facility] UA Auto SS Urobilinogen Qn (U) 1.6252094 {Rola'U}/dL Normal 0.0 - 1.0 EU/dL [facility] UA Auto SS WBC Auto Ql (U) Negative (04/26/23 9:15 AM) Normal Negative [facility] UA Auto SS WBC LM.HPF (Urine sed) [#/Area] 0-5 /HPF Normal 0-5/HPF [facility] UA Auto SS US 1st Trimesteron 04-26-2023 US 1st Trimester Normal [facility] US Transvaginalon 04-26-2023 US Transvaginal Normal [facility] Coding Summary.on 02-02-2023 Coding Summary. Normal [facility] Auto Diffon 01-31-2023 Basophils/100 WBC (Bld) 0.3 % Normal 0.0-2.0 [facility] Comment on above: Order Comment: Order Added by Discern Expert. Performed By: #### 2 134766, 1005716, 77596777, 6189355 ####[facility] [address] [place] [address] Basophils/Leukocytes Auto (Bld) [Pure # fraction] 0.0 E9/L Normal 0.0-0.2 [facility] Comment on above: Order Comment: Order Added by Discern Expert. Performed By: #### 2 900134, 4278096, 24547176, 8801743 ####[address] [place] [address] Eosinophils/100 WBC (Bld) 2.8 % Normal 0.0-8.0 [facility] Comment on above: Order Comment: Order Added by Discern Expert. Performed By: #### 2 429860, 5914215, 89631210, 6084036 ####[address] [address] Eosinophils/Leukocytes Auto (Bld) [Pure # fraction] 0.1 E9/L Normal 0.0-0.5 [facility] Comment on above: Order Comment: Order Added by Discern Expert. Performed By: #### 2 413219, 5222959, 86613790, 7960800 ####[address] [address] Lymphocytes/100 WBC (Bld) 30.0 % Normal 14.0-50.0 [facility] Comment on above: Order Comment: Order Added by Discern Expert. Performed By: #### 2 177516, 1512240, 98707088, 1433557 ####[address] [address] Lymphocytes/Leukocytes Auto (Bld) [Pure # fraction] 1.5 E9/L Normal 1.0-4.0 [facility] Comment on above: Order Comment: Order Added by Discern Expert. Performed By: #### 2 004423, 8012945, 83536143, 2173922 ####[address] [place] [address] Monocytes/100 WBC (Bld) 7.0 % Normal 4.0-14.0 [facility] Comment on above: Order Comment: Order Added by Discern Expert. Performed By: #### 2 945507, 5253095, 17644595, 0028824 ####[address] [place] [address] Monocytes/Leukocytes Auto (Bld) [Pure # fraction] 0.4 E9/L Normal 0.2-1.0 [facility] Comment on above: Order Comment: Order Added by Discern Expert. Performed By: #### 2 322795, 7979876, 05591511, 4982279 ####[address] [address] Neutrophils/100 WBC (Bld) 59.9 % Normal 36.0-75.0 [facility] Comment on above: Order Comment: Order Added by Discern Expert. Performed By: #### 2 015711, 6594241, 90553308, 8350250 ####[address] [address] Neutrophils/Leukocytes Auto (Bld) [Pure # fraction] 3.1 E9/L Normal 2.0-7.5 [facility] Comment on above: Order Comment: Order Added by Discern Expert. Performed By: #### 2 051755, 5446176, 85534171, 1048325 ####[address] [address] B hCG Qualon 01-31-2023 Beta hCG Ql Negative Normal [facility] Comment on above: Performed By: #### 2 6552545, 74475443 ####[address] [address] BMPon 01-31-2023 Creatinine [Mass/Vol] 0.8 mg/dL Normal 0.5-1.3 [facility] Comment on above: Performed By: #### 2 330536, 6431571, 45523633, 6497250 ####[address] [address] Urea nitrogen [Mass/Vol] 9 mg/dL Normal 5-21 [facility] Comment on above: Performed By: #### 2 232178, 8430993, 96767545, 9238720 ####[address] [place] [address] Urea nitrogen/Creatinine [Mass ratio] 11 No Units Normal 10-20 [facility] Comment on above: Performed By: #### 2 890024, 0974199, 22256867, 1246387 ####[facility] [address] [facility] [place] [address] Anion gap [Moles/Vol] 12 mmol/L Normal 6-16 [facility] Comment on above: Performed By: #### 2 371087, 6561851, 83991515, 7178065 ####[facility] [address] [place] [address] Calcium [Mass/Vol] 9.1 mg/dL Normal 8.9-11.1 [facility] Comment on above: Performed By: #### 2 282095, 8423695, 24103387, 8330657 ####[facility] [address] [place] [address] Chloride [Moles/Vol] 104 mmol/L Normal 101-111 [facility] Comment on above: Performed By: #### 2 883885, 1091824, 30368259, 0148573 ####[facility] [address] [place] [address] CO2 [Moles/Vol] 23 mmol/L Normal 21-31 [facility] Comment on above: Performed By: #### 2 552530, 1698675, 02743159, 0921890 ####[facility] [address] [place] [address] Glucose [Mass/Vol] 84 mg/dL Normal 55-199 [facility] Comment on above: Result Comment: If t his glucose result represents a fasting glucose, interpretation should refer to the following reference range: 55-99 mg/dL Performed By: #### 2 767877, 7530786, 69513496, 3765488 ####[facility] [address] [facility] [place] [address] Potassium [Moles/Vol] 3.5 mmol/L Normal 3.5-5.3 [facility] Comment on above: Performed By: #### 2 451350, 8952071, 82731731, 8153091 ####[address] [place] [address] Sodium [Moles/Vol] 135 mmol/L Normal 135-145 [facility] Comment on above: Performed By: #### 2 624316, 7430373, 84635208, 4604071 ####[place] [address] CBC w/ Auto Diffon 3 Erythrocyte distribution width (RBC) [Ratio] 12.9 % Normal 10.9-14.2 [facility] Comment on above: Performed By: #### 2 379911, 4167046, 07334254, 6898746 ####[place] [address] Hematocrit (Bld) [Volume fraction] 46.4 % High 34.0-46.0 [facility] Comment on above: Performed By: #### 2 448134, 7432299, 27247308, 9428731 ####[place] [address] Hemoglobin (Bld) [Mass/Vol] 15.0 g/dL Normal 12.0-16.0 [facility] Comment on above: Performed By: #### 2 346961, 6835333, 48498287, 8444606 ####[place] [address] MCH (RBC) [Entitic mass] 28.6 pg Normal 27.0-34.0 [facility] Comment on above: Performed By: #### 2 296260, 4608150, 03151148, 8016445 ####[address] [address] MCHC (RBC) [Mass/Vol] 32.3 g/dL Normal 31.4-36.0 [facility] Comment on above: Performed By: #### 2 384926, 8144722, 42071491, 8896705 ####[facility] [address] [place] [address] MCV (RBC) [Entitic vol] 88.5 fL Normal 80.0-100.0 [facility] Comment on above: Performed By: #### 2 511035, 9548094, 21114307, 3154784 ####[facility] [address] [place] [address] Platelet mean volume (Bld) [Entitic vol] 7.9 fL Normal 6.4-10.8 [facility] Comment on above: Performed By: #### 2 006210, 7891633, 18345636, 2881554 ####[facility] [address] [place] [address] Platelets (Bld) [#/Vol] 300.0 E9/L Normal 150.0-500.0 [facility] Comment on above: Performed By: #### 2 238848, 5341401, 91119357, 3646541 ####[address] [address] RBC (Bld) [#/Vol] 5.2 E12/L Normal 4.3-5.9 [facility] Comment on above: Performed By: #### 2 363685, 2088177, 94051878, 9784430 ####[facility] [address] [place] [address] WBC corrected for nucl RBC Auto (Bld) [#/Vol] 5.1 E9/L Normal 4.0-11.0 [facility] Comment on above: Performed By: #### 2 989446, 9321490, 51663896, 0590513 ####[facility] [address] [place] [address] CHEMISTRYOrdered By: SYSTEM SYSTEM on 01-31-2023 Anion gap [Moles/Vol] 12 mmol/L Normal 6 - 16 mEq/L [facility] Remisol Calcium [Mass/Vol] 9.1 mg/dL Normal 8.9 - 11. 1 mg/dL [facility] Remisol Chloride [Moles/Vol] 104 mmol/L Normal 101 - 1 11 mmol/L [facility] Remisol CO2 [Moles/Vol] 23 mmol/L Normal 21 - 31 mmol/L [facility] Remisol Creatinine [Mass/Vol] 0.8 mg/dL Normal 0.5 - 1.3 mg/dL [facility] Remisol GFR/1.73 sq M.predicted among blacks MDRD (S/P/Bld) [Vol rate/Area] mL/min/1.73 m2 Normal >=59mL/min/ 1.73 m2 FT Chem S GFR/1.73 sq M.predicted among non-blacks MDRD (S/P/Bld) [Vol rate/Area] mL/min/1.73 m2 Normal >=59mL/min/ 1.73 m2 [facility] Chem S Glucose [Mass/Vol] 84 mg/dL Normal 55 - 199 mg/dL [facility] Remisol Potassium [Moles/Vol] 3.5 mmol/L Normal 3.5 - 5.3 mmol/L [facility]isol Sodium [Moles/Vol] 135 mmol/L Normal 135 - 145 mmol/L [facility] Urea nitrogen [Mass/Vol] 9 mg/dL Normal 5 - 21 mg/dL [facility]isol Urea nitrogen/Creatinine [Mass ratio] 11 mg/mg Normal 10 - 20 [facility] Remisol COAGULATIONOrdered By: Disha Mccarty on 01-31-2023 aPTT Coag (PPP) [Time] 31.3 s Normal 25.1 - 36.5 second(s) [facility] Auto Coag INR Coag (PPP) [Relative time] 1.1 {INR} Invalid Interpretation Code [facility] Auto Coag PT Coag (PPP) [Time] 12.3 s Normal 9.4 - 1 2.5 second(s) [facility] Auto Coag CTA Headon 01-31-2023 CTA Head Normal [facility] Consent for Treatmenton 01-13 Consent for Treatment [id number]#1.00CD:12 7 [facility] Discharge Instructionson Discharge Instructions [id number]#1.00CD:1 27 [facility] ED Clinical Summaryon 2022 ED Clinical Summary Normal [facility] [facility] ED Note-Physicianon 02-01-20 23 ED Note-Physician Normal [facility] Comment on above: Result Comment: Elec tronically Signed By: Kristian Guillermo DO\Date and Time Signed: 01/31/23 14:00 EDT ED Patient Education Noteon 01-31-2023 ED Patient Education Note Normal [facility] ED Patient Summaryon 023 ED Patient Summary Normal [facility] HEMATOLOGYOrdered By: SYSTEM SYSTEM on 01-31-2023 [...] Coag (PPP) [Time] 31.3 second(s) Normal 25.1-36.5 [facility] Comment on above: Result Comment: Para [...] the same coagulation reagent and instrumentation as [facility]. Currently there are no coagulation studies available worldwide for children to 14 days, and no normal ranges. Heparin therapeutic range (represented by Anti-Factor Xa activity of 0.2 - 0.4 U/mL) corresponds to PTT of 56.6 - 109.0 sec. Performed By: #### 2 [id number], [id number] ####[facility] [address] [place] [address] INR Coag (PPP) [Relative time] 1.1 {INR} Invalid Interpretation Code [facility] Comment on above: Result Comment: INR results are specifically intended to assess patients stabilized on long-term Anticoagulation therapy suggested INR?s ?Less Intensive Anticoagulation? 2.0 ? 3.0Conventional Range 3.0 ? 4.5 Performed By: #### 2 7641962, 06619497 ####[facility] [address] [place] [address] PT Coag (PPP) [Time] 12.3 second(s) Normal 9.4-12.5 [facility] Comment on above: Result Comment: 15 [...] the same coagulation reagent and instrumentation as [facility]. Currently there are no coagulation studies available worldwide for children to 14 days, and no normal ranges. Performed By: #### 2 3382806, [id number] ####[facility] [address] [place] [address] Pre-Arrival Noteon 3 Pre-Arrival Note Normal [facility] SEROLOGYOrdered By: Nova Mccarty on 01-31-2023 Beta hCG Ql Negative (01/31/23 10:14 AM) Normal [facility] Man Sero eGFRon 01-31-2023 GFR/1.73 sq M.predicted among blacks MDRD (S/P/Bld) [Vol rate/Area] mL/min/{1.73_m2} Normal >=59 [facility] Comment on above: Order Comment: Order added by Discern Expert. Result Comment: eGFR is race adjusted. AA=. Performed By: #### 2 127503, [id number], [id number], [id number] ####[facility] [address] [place] [address] GFR/1.73 sq M.predicted among non-blacks MDRD (S/P/Bld) [Vol rate/Area] mL/min/{1.73_m2} Normal >=59 [facility] Comment on above: Order Comment: Order added by Discern Expert. Result Comment: Forest Ranger lucy kidney disease could be indicated at eGFR's of less than 60 mL/min/1.73m2. Kidney failure is indicated at less than 15 mL/min/1.73m2. Performed By: #### 2 998044, [id number], [id number], [id number] ####[facility] [address] [place] [address] Nursing Assessmenton 023 Nursing Assessment [id number]#1.00CD:1 27 Normal [facility] Coding Summary.on 10-02-2022 Coding Summary. Normal [facility] Coding Summary. [facility] Delivery Summaryon Delivery Summary [facility] Comment on above: Result Comment: Elec tronically Signed By: Fabaina MARION, Luis Carlos Byrd\.medina\Date and Time Signed: 09/29/22 09:25 EST General Message Officeon General Message Office Normal [facility] Insurance Correspondence Off iceon 09-28-2022 Insurance Correspondence Office [id number]#1.00CD:1 27 [facility] Discharge Instructionson Discharge Instructions [id number]#1.00CD:12 7 [facility] Inpatient Clinical Summaryon 09-27-2022 Inpatient Clinical Summary Normal [facility] Inpatient Patient Summaryon 09-27-2022 Inpatient Patient Summary Normal [facility] CBC w/Indiceson 09-26-2022 Erythrocyte distribution width (RBC) [Ratio] 13.1 % Normal 10.9-14.2 [facility] Comment on above: Performed By: #### 2 [id number] ####[address] [place] [address] Hematocrit (Bld) [Volume fraction] 32.1 % Low 34.0-46.0 [facility] Comment on above: Performed By: #### 2 791323 ####[address] [address] Hemoglobin (Bld) [Mass/Vol] 11.1 g/dL Low 12.0-16.0 [facility] Comment on above: Performed By: #### 2 481874 ####[address] [address] MCH (RBC) [Entitic mass] 30.9 pg Normal 27.0-34.0 [facility] Comment on above: Performed By: #### 2 425536 ####[address] [address] MCHC (RBC) [Mass/Vol] 34.5 g/dL Normal 31.4-36.0 [facility] Comment on above: Performed By: #### 2 972619 ####[facility] [address] [place] [address] MCV (RBC) [Entitic vol] 89.7 fL Normal 80.0-100.0 [facility] Comment on above: Performed By: #### 2 480127 ####[address] [place] [address] Platelet mean volume (Bld) [Entitic vol] 10.1 fL Normal 6.4-10.8 [facility] Comment on above: Performed By: #### 2 067115 ####[address] Platelets (Bld) [#/Vol] 204.0 E9/L Normal 150.0-500.0 [facility] Comment on above: Performed By: #### 2 684098 ####[facility] [address] [place] [address] RBC (Bld) [#/Vol] 3.6 E12/L Low 4.3-5.9 [facility] Comment on above: Performed By: #### 2 831999 ####[facility] [address] [place] [address] WBC corrected for nucl RBC Auto (Bld) [#/Vol] 23.2 E9/L High 4.0-11.0 [facility] Comment on above: Performed By: #### 2 036755 ####[facility] [address] [place] [address] Nursing Assessmenton 022 Nursing Assessment [id number]#1.00CD:12 7 [facility] Progress Note-Physicianon Progress Note-Physician [facility] Comment on above: Result Comment: Elec tronically Signed By: Fabiana MARION, Luis Carlos Byrd\.br\Date and Time Signed: 09/26/22 08:19 EST Coding Summary.on 09-25-2022 Coding Summary. [facility] Coding Summary. [facility] Consenton 09-25-2022 Consent [id number]#1.00CD:1 27 [facility] Consent for Anesthesiaon Consent for Anesthesia [id number]#1.00CD:12 7 [facility] Discharge Instructionson Discharge Instructions [id number]#1.00CD:1 27 [facility] Help Me Grow Referralon 09-14 Help Me Grow Referral [id number]#1.00CD:12 7 Normal [facility] Recordson Records [id number]#1.00CD:12 7 Normal [facility] Progress Note-Physicianon Progress Note-Physician Normal [facility] Comment on above: Result Comment: Elec tronically Signed By: Jimmy Corcoran Jr., DO\.br\Date and Time Signed: 09/25/22 08:31 EST Progress Note-Physician Normal [facility] Comment on above: Result Comment: Elec tronically Signed By: Jimmy Corcoran Jr., DO\.br\Date and Time Signed: 09/25/22 08:31 EST UA With Cult Reflexon 2021 Bilirubin Ql (U) Negative Normal Negative [facility] Comment on above: Order Comment: Urina ry Catheter Insertion triggered Urinalysis With Culture Reflex order by discern. Performed By: #### 1 [id number] ####[facility] [address] [place] [address] Clarity (U) CLEAR Normal Clear [facility] Comment on above: Order Comment: Urina ry Catheter Insertion triggered Urinalysis With Culture Reflex order by discern. Performed By: #### 1 [id number] ####[facility] [address] [place] [address] Color (U) YELLOW Normal Yellow [facility] Comment on above: Order Comment: Urina ry Catheter Insertion triggered Urinalysis With Culture Reflex order by discern. Performed By: #### 1 7339162 ####[facility] [address] [place] [address] Epithelial cells.squamous LM.HPF (Urine sed) [#/Area] 0-2 Normal 0-2 [facility] Comment on above: Order Comment: Urina ry Catheter Insertion triggered Urinalysis With Culture Reflex order by discern. Performed By: #### 1 0126375 ####[facility] [address] [place] [address] Glucose Test strip (U) [Mass/Vol] Negative Normal Negative [facility] Comment on above: Order Comment: Urina ry Catheter Insertion triggered Urinalysis With Culture Reflex order by discern. Performed By: #### 1 2079508 ####[facility] [address] [place] [address] Hemoglobin Ql (U) Negative Normal Negative [facility] Comment on above: Order Comment: Urina ry Catheter Insertion triggered Urinalysis With Culture Reflex order by discern. Performed By: #### 1 8230278 ####[address] [address] Ketones (U) [Mass/Vol] Negative Normal Negative [facility] Comment on above: Order Comment: Urina ry Catheter Insertion triggered Urinalysis With Culture Reflex order by discern. Performed By: #### 1 6963714 ####[address] [address] [place].plasma/[place] .RBC (Bld) [Mass ratio] 0-3 Normal 0-3 [facility] Comment on above: Order Comment: Urina ry Catheter Insertion triggered Urinalysis With Culture Reflex order by discern. Performed By: #### 1 9662413 ####[address] [address] Nitrite Ql (U) Negative Normal Negative [facility] Comment on above: Order Comment: Urina ry Catheter Insertion triggered Urinalysis With Culture Reflex order by discern. Performed By: #### 1 6920166 ####[address] [address] pH (U) 7.0 [pH] Invalid Interpretation Code 5.0-9.0 [facility] Comment on above: Order Comment: Urina ry Catheter Insertion triggered Urinalysis With Culture Reflex order by discern. Performed By: #### 1 4033478 ####[address] [address] Protein (U) [Mass/Vol] Negative Normal Negative [facility] Comment on above: Order Comment: Urina ry Catheter Insertion triggered Urinalysis With Culture Reflex order by discern. Performed By: #### 1 6359602 ####[place] [address] Specific gravity (U) [Rel density] <=1.005 Invalid Interpretation Code 1.005-1.030 [facility] Comment on above: Order Comment: Urina ry Catheter Insertion triggered Urinalysis With Culture Reflex order by discern. Performed By: #### 1 1279467 ####[place] [address] Type of Urine collection method Vyas Normal [facility] Comment on above: Order Comment: Urina ry Catheter Insertion triggered Urinalysis With Culture Reflex order by discern. Performed By: #### 1 4352794 ####[place] [address] Urobilinogen Qn (U) 0.2 {Rola'U}/dL Normal 0.0-1.0 [facility] Comment on above: Order Comment: Urina ry Catheter Insertion triggered Urinalysis With Culture Reflex order by discern. Performed By: #### 1 6487788 ####[address] WBC Auto Ql (U) Negative Normal Negative [facility] Comment on above: Order Comment: Urina ry Catheter Insertion triggered Urinalysis With Culture Reflex order by discern. Performed By: #### 1 2970487 ####[address] [address] WBC LM.HPF (Urine sed) [#/Area] 0-5 Normal 0-5 [facility] Comment on above: Order Comment: Urina ry Catheter Insertion triggered Urinalysis With Culture Reflex order by discern. Performed By: #### 1 9937384 ####[address] [address] Bilirubin Ql (U) Negative Normal Negative [facility] Comment on above: Performed By: #### 1 1680391 ####[address] [address] Clarity (U) CLEAR Normal Clear [facility] Comment on above: Performed By: #### 1 0928506 ####[address] [place] [address] Color (U) YELLOW Normal Yellow [facility] Comment on above: Performed By: #### 1 2591418 ####[address] [address] Epithelial cells.squamous LM.HPF (Urine sed) [#/Area] 0-2 Normal 0-2 [facility] Comment on above: Performed By: #### 1 9675125 ####[address] [address] Glucose Test strip (U) [Mass/Vol] Negative Normal Negative [facility] Comment on above: Performed By: #### 1 4562734 ####[address] [address] Hemoglobin Ql (U) Negative Normal Negative [facility] Comment on above: Performed By: #### 1 4358482 ####[address] [address] Ketones (U) [Mass/Vol] Negative Normal Negative [facility] Comment on above: Performed By: #### 1 7432860 ####[address] [address] [place].plasma/[place] .RBC (Bld) [Mass ratio] 0-3 Normal 0-3 [facility] Comment on above: Performed By: #### 1 2873197 ####[address] [address] Nitrite Ql (U) Negative Normal Negative [facility] Comment on above: Performed By: #### 1 6484670 ####[address] [address] pH (U) 6.0 [pH] Invalid Interpretation Code 5.0-9.0 [facility] Comment on above: Performed By: #### 1 5967357 ####[address] [address] Protein (U) [Mass/Vol] Negative Normal Negative [facility] Comment on above: Performed By: #### 1 8874378 ####[facility] [address] [place] [address] Specific gravity (U) [Rel density] <=1.005 Invalid Interpretation Code 1.005-1.030 [facility] Comment on above: Performed By: #### 1 8811565 ####[place] [address] Type of Urine collection method Clean Catch Normal [facility] Comment on above: Performed By: #### 1 9876236 ####[address] [address] Urobilinogen Qn (U) 0.2 {Rola'U}/dL Normal 0.0-1.0 [facility] Comment on above: Performed By: #### 1 4413884 ####[place] [address] WBC Auto Ql (U) Negative Normal Negative [facility] Comment on above: Performed By: #### 1 7279802 ####[address] [address] WBC LM.HPF (Urine sed) [#/Area] 0-5 Normal 0-5 [facility] Comment on above: Performed By: #### 1 4125848 ####[address] [address] Vaccinationson 09-25-2022 Vaccinations [id number]#1.00CD:1 27 Normal [facility] Vaccinations [id number]#1.00CD:1 27 Normal [facility] ABO/Rhon 09-24-2022 ABO/Rh Positive Invalid Interpretation Code [facility] Comment on above: Performed By: #### 1 9645264, 02470747, 71298692, 7109094 ####[facility] [address] [place] [address] ABO/Rh History Checkon 09-24 ABO/Rh History Check Verified Hx Blood Type Normal [facility] Comment on above: Performed By: #### 1 0295277, 60142691, 83122177, 1669961 ####[facility] [address] [place] [address] ABSCon 09-24-2022 ABSC Gel Interp Negative Normal [facility] Comment on above: Performed By: #### 1 0671407, 21396540, 46309640, 4674639 ####[facility] [address] [place] [address] Blood Bank ID#on 09-24-2022 BBID# [id number] Invalid Interpretation Code [facility] Comment on above: Performed By: #### 1 3279390, 12589284, 37131914, 2833249 ####[facility] [address] [place] [address] CBC w/Indiceson 09-24-2022 Erythrocyte distribution width (RBC) [Ratio] 13.0 % Normal 10.9-14.2 [facility] Comment on above: Performed By: #### 2 621552 ####[facility] [address] [place] [address] Hematocrit (Bld) [Volume fraction] 38.0 % Normal 34.0-46.0 [facility] Comment on above: Performed By: #### 2 442796 ####[facility] [address] [place] [address] Hemoglobin (Bld) [Mass/Vol] 12.8 g/dL Normal 12.0-16.0 [facility] Comment on above: Performed By: #### 2 758654 ####[facility] [address] [place] [address] MCH (RBC) [Entitic mass] 31.3 pg Normal 27.0-34.0 [facility] Comment on above: Performed By: #### 2 318564 ####[facility] [address] [place] [address] MCHC (RBC) [Mass/Vol] 33.7 g/dL Normal 31.4-36.0 [facility] Comment on above: Performed By: #### 2 154919 ####[address] [address] MCV (RBC) [Entitic vol] 92.9 fL Normal 80.0-100.0 [facility] Comment on above: Performed By: #### 2 534350 ####[address] [address] Platelet mean volume (Bld) [Entitic vol] 9.8 fL Normal 6.4-10.8 [facility] Comment on above: Performed By: #### 2 502360 ####[address] [address] Platelets (Bld) [#/Vol] 238.0 E9/L Normal 150.0-500.0 [facility] Comment on above: Performed By: #### 2 169299 ####[address] [address] RBC (Bld) [#/Vol] 4.1 E12/L Low 4.3-5.9 [facility] Comment on above: Performed By: #### 2 876974 ####[address] [address] WBC corrected for nucl RBC Auto (Bld) [#/Vol] 12.8 E9/L High 4.0-11.0 [facility] Comment on above: Performed By: #### 2 793456 ####[address] [address] Consent for Treatmenton 09-14 Consent for Treatment [id number]#1.00CD:12 7 Normal [facility] Consent for Treatment [id number]#1.00CD:1 27 Normal [facility] Consent for Treatmenton Consent for Treatment [id number]#1.00CD:12 7 [facility] Discharge Instructionson Discharge Instructions [id number]#1.00CD:12 7 Normal [facility] Inpatient Clinical Summaryon 09-22-2022 Inpatient Clinical Summary Normal [facility] Inpatient Patient Summaryon 09-22-2022 Inpatient Patient Summary Normal [facility] Insurance Correspondence Off ice09-22-2022 Insurance Correspondence Office [id number]#1.00CD: 127 [facility] Nursing Assessmenton 022 Nursing Assessment [id number]#1.00CD:1 27 [facility] Nursing Assessment [id number]#1.00CD:12 7 [facility] Discharge Instructionson Discharge Instructions [id number]#1.00CD:127 [facility] Inpatient Clinical Summaryon 09-20-2022 Inpatient Clinical Summary Normal [facility] Inpatient Patient Summaryon 09-20-2022 Inpatient Patient Summary [facility] Insurance Correspondence Off ice09-20-2022 Insurance Correspondence Office [id number]#1.00CD:127 [facility] Consent for Treatmenton Consent for Treatment [id number]#1.00CD:12 7 [facility] Discharge Instructionson Discharge Instructions [id number]#1.00CD:1 27 Normal [facility] Inpatient Clinical Summaryon 09-19-2022 Inpatient Clinical Summary Normal [facility] Inpatient Patient Summaryon 09-19-2022 Inpatient Patient Summary Normal [facility] Insurance Correspondenceon 11-20-2021 Insurance Correspondence [id number]#1.00CD:1 27 Normal [facility] UA With Cult Reflexon 2021 Bilirubin Ql (U) Negative Normal Negative [facility] Comment on above: Performed By: #### 1 4527206 ####[facility] [address] [place] [address] Clarity (U) CLEAR Normal Clear [facility] Comment on above: Performed By: #### 1 6226668 ####[facility] [address] [place] [address] Color (U) YELLOW Normal Yellow [facility] Comment on above: Performed By: #### 1 4972890 ####[address] [address] Epithelial cells.squamous LM.HPF (Urine sed) [#/Area] 0-2 Normal 0-2 [facility] Comment on above: Performed By: #### 1 8346776 ####[facility] [address] [place] [address] Glucose Test strip (U) [Mass/Vol] Negative Normal Negative [facility] Comment on above: Performed By: #### 1 4329843 ####[facility] [address] [place] [address] Hemoglobin Ql (U) Negative Normal Negative [facility] Comment on above: Performed By: #### 1 4135917 ####[facility] [address] [place] [address] Ketones (U) [Mass/Vol] Negative Normal Negative [facility] Comment on above: Performed By: #### 1 6626334 ####[address] [address] [place].plasma/[place] .RBC (Bld) [Mass ratio] 0-3 Normal 0-3 [facility] Comment on above: Performed By: #### 1 9279407 ####[address] [address] Nitrite Ql (U) Negative Normal Negative [facility] Comment on above: Performed By: #### 1 8486545 ####[facility] [address] [place] [address] pH (U) 7.0 [pH] Invalid Interpretation Code 5.0-9.0 [facility] Comment on above: Performed By: #### 1 3508544 ####[address] [address] Protein (U) [Mass/Vol] Negative Normal Negative [facility] Comment on above: Performed By: #### 1 1080916 ####[address] [address] Specific gravity (U) [Rel density] <=1.005 Invalid Interpretation Code 1.005-1.030 [facility] Comment on above: Performed By: #### 1 6637379 ####[address] [address] Type of Urine collection method Clean Catch Normal [facility] Comment on above: Performed By: #### 1 2009586 ####[address] [address] Urobilinogen Qn (U) 0.2 {Rola'U}/dL Normal 0.0-1.0 [facility] Comment on above: Performed By: #### 1 4337436 ####[address] [address] WBC Auto Ql (U) Negative Normal Negative [facility] Comment on above: Performed By: #### 1 2519610 ####[facility] [address] [place] [address] WBC LM.HPF (Urine sed) [#/Area] 0-5 Normal 0-5 [facility] Comment on above: Performed By: #### 1 1617884 ####[facility] [address] [place] [address] URINALYSISOrdered By: Jeanette Castle on 09-19-2022 Bilirubin [...] AM) Normal Negative [facility] UA Auto SS [place].plasma/[place] .RBC (Bld) [Mass ratio] 0-3 /HPF Normal [...] Desc Clean Catch (09/19/22 1:44 AM) Normal [facility] UA Auto SS Urobilinogen Qn (U) 0.6966203 {Rola'U}/dL Normal 0.0 - 1.0 EU/dL [facility] UA Auto SS WBC Auto Ql (U) Negative (09/19/22 1:44 AM) Normal Negative [facility] UA Auto SS WBC LM.HPF (Urine sed) [#/Area] 0-5 /HPF Normal 0-5/HPF [facility] UA Auto SS Coding Summary.on 09-18-2022 Coding Summary. Normal [facility] Nursing Assessmenton 022 Nursing Assessment [id number]#1.00CD:12 7 Normal [facility] Coding Summary.on 09-15-2022 Coding Summary. Normal [facility] Coding Summary.on 09-14-2022 Coding Summary. Normal [facility] Consent for Treatmenton Consent for Treatment [id number]#1.00CD:12 7 Normal [facility] Consent for Treatment [id number]#1.00CD:12 7 Normal [facility] Discharge Instructionson Discharge Instructions [id number]#1.00CD:12 7 Normal [facility] Inpatient Clinical Summaryon 09-14-2022 Inpatient Clinical Summary Normal [facility] Inpatient Patient Summaryon 09-14-2022 Inpatient Patient Summary [facility] Insurance Correspondence Off iceon 09-14-2022 Insurance Correspondence Office [id number]#1.00CD:12 7 [facility] Nursing Assessmenton 022 Nursing Assessment [id number]#1.00CD:1 27 [facility] UA With Cult Reflexon 2021 Bacteria LM Ql (Urine sed) TRACE Normal Trace [facility] Comment on above: Performed By: #### 1 5992634 ####[facility] [address] [place] [address] Bilirubin Ql (U) Negative Normal Negative [facility] Comment on above: Performed By: #### 1 3672231 ####[facility] [address] [place] [address] Clarity (U) CLEAR Normal Clear [facility] Comment on above: Performed By: #### 1 6960558 ####[facility] [address] [place] [address] Color (U) YELLOW Normal Yellow [facility] Comment on above: Performed By: #### 1 7702649 ####[facility] [address] [place] [address] Crystals LM Ql (Urine sed) Present Normal [facility] Comment on above: Performed By: #### 1 5048652 ####[address] [address] Epithelial cells.squamous LM.HPF (Urine sed) [#/Area] 0-2 Normal 0-2 [facility] Comment on above: Performed By: #### 1 3310826 ####[address] [address] Glucose Test strip (U) [Mass/Vol] Negative Normal Negative [facility] Comment on above: Performed By: #### 1 7050514 ####[address] [address] Hemoglobin Ql (U) Negative Normal Negative [facility] Comment on above: Performed By: #### 1 0489154 ####[address] [address] Ketones (U) [Mass/Vol] Negative Normal Negative [facility] Comment on above: Performed By: #### 1 6999409 ####[address] [address] [place].plasma/[place] .RBC (Bld) [Mass ratio] 0-3 Normal 0-3 [facility] Comment on above: Performed By: #### 1 7879241 ####[address] [address] Mucus Ql (Urine sed) TRACE Normal [facility] Comment on above: Performed By: #### 1 3976965 ####[address] [address] Nitrite Ql (U) Negative Normal Negative [facility] Comment on above: Performed By: #### 1 0330720 ####[address] [address] pH (U) 6.0 [pH] Invalid Interpretation Code 5.0-9.0 [facility] Comment on above: Performed By: #### 1 4516074 ####[facility] [address] [place] [address] Protein (U) [Mass/Vol] Negative Normal Negative [facility] Comment on above: Performed By: #### 1 4291168 ####[facility] [address] [place] [address] Specific gravity (U) [Rel density] <=1.005 Invalid Interpretation Code 1.005-1.030 [facility] Comment on above: Performed By: #### 1 [id number] ####[address] [address] Type of Urine collection method Random Urine Normal [facility] Comment on above: Performed By: #### 1 [id number] ####[address] [address] Urobilinogen Qn (U) 0.2 {Rola'U}/dL Normal 0.0-1.0 [facility] Comment on above: Performed By: #### 1 [id number] ####[facility] [address] [place] [address] WBC Auto Ql (U) TRACE Abnormal Negative [facility] Comment on above: Performed By: #### 1 [id number] ####[facility] [address] [place] [address] WBC LM.HPF (Urine sed) [#/Area] 0-5 Normal 0-5 [facility] Comment on above: Performed By: #### 1 [id number] ####[address] [address] URINALYSISOrdered By: An Lassiter on 09-14-2022 Bacteria [...] AM) Normal Negative [facility] UA Auto SS [place].plasma/[place] .RBC (Bld) [Mass ratio] 0-3 /HPF Normal [...] Desc Random Urine (09/14/22 9:25 AM) Normal [facility] UA Auto SS Urobilinogen Qn (U) 0.9972995 {Rola'U}/dL Normal 0.0 - 1.0 EU/dL [facility]A Auto SS WBC Auto Ql (U) Trace *ABN* (09/14/22 9:25 AM) Invalid Interpretation Code Negative [facility] UA Auto SS WBC LM.HPF (Urine sed) [#/Area] 0-5 /HPF Normal 0-5/HPF [facility] UA Auto SS Coding Summary.on 09-12-2022 Coding Summary. Normal [facility] Consent for Treatmenton 08-16 Consent for Treatment [id number]#1.00CD:12 7 Normal [facility] Discharge Instructionson Discharge Instructions [id number]#1.00CD:12 7 Normal [facility] Discharge Instructions [id number]#1.00CD:1 27 Normal [facility] Inpatient Clinical Summaryon 09-12-2022 Inpatient Clinical Summary Normal [facility] Inpatient Patient Summaryon 09-12-2022 Inpatient Patient Summary Normal [facility] Insurance Correspondenceon 1 11-12-2021 Insurance Correspondence [id number]#1.00CD:12 7 Normal [facility] Insurance Correspondence Off iceon 09-12-2022 Insurance Correspondence Office [id number]#1.00CD:1 27 Normal [facility] Nursing Assessmenton 022 Nursing Assessment [id number]#1.00CD:1 27 Normal [facility] UA With Cult Reflexon 2021 Bilirubin Ql (U) Negative Normal Negative [facility] Comment on above: Performed By: #### 1 [id number] ####[facility] [address] [place] [address] Clarity (U) CLEAR Normal Clear [facility] Comment on above: Performed By: #### 1 [id number] ####[facility] [address] [place], [place] [address] Color (U) YELLOW Normal Yellow [facility] Comment on above: Performed By: #### 1 1082594 ####[facility] [address] [place], [place] [address] Crystals LM Ql (Urine sed) Present Normal [facility] Comment on above: Performed By: #### 1 [id number] ####[place] [address]8557 Epithelial cells.squamous LM.HPF (Urine sed) [#/Area] 3-4 Normal 0-2 [facility] Comment on above: Performed By: #### 1 2349951 ####[facility] [address] [place] [address] Glucose Test strip (U) [Mass/Vol] Negative Normal Negative [facility] Comment on above: Performed By: #### 1 7076501 ####[place] [address] [place] [address] Hemoglobin Ql (U) Negative Normal Negative [facility] Comment on above: Performed By: #### 1 [id number] ####[address] [address] Ketones (U) [Mass/Vol] Negative Normal Negative [facility] Comment on above: Performed By: #### 1 9987322 ####[address] [address] [place].plasma/[place] .RBC (Bld) [Mass ratio] 0-3 Normal 0-3 [facility] Comment on above: Performed By: #### 1 9873851 ####[address] [address] Nitrite Ql (U) Negative Normal Negative [facility] Comment on above: Performed By: #### 1 7502325 ####[address] [address] pH (U) 6.0 [pH] Invalid Interpretation Code 5.0-9.0 [facility] Comment on above: Performed By: #### 1 0001547 ####[place] [address] [place] [address] Protein (U) [Mass/Vol] Negative Normal Negative [facility] Comment on above: Performed By: #### 1 5873922 ####[address] [address] Specific gravity (U) [Rel density] 1.010 Invalid Interpretation Code 1.005-1.030 [facility] Comment on above: Performed By: #### 1 2419535 ####[facility] [address] [place] [address]99[address] Type of Urine collection method Clean Catch Normal [facility] Comment on above: Performed By: #### 1 1550439 ####[facility] [address] [place] [address] Urobilinogen Qn (U) 0.2 {Rola'U}/dL Normal 0.0-1.0 [facility] Comment on above: Performed By: #### 1 9307558 ####[facility] [address] [place] [address] WBC Auto Ql (U) Negative Normal Negative [facility] Comment on above: Performed By: #### 1 7375089 ####[facility] [address] [place] [address]99[address] WBC LM.HPF (Urine sed) [#/Area] 0-5 Normal 0-5 [facility] Comment on above: Performed By: #### 1 1208301 ####[facility] [address] [place], [place] [address] URINALYSISOrdered By: Jose Miguel nelson on 09-12-2022 [...] PM) Normal Negative [facility] UA Auto SS [place].plasma/[place] .RBC (Bld) [Mass ratio] 0-3 /HPF Normal 0-3/HPF [facility] UA Auto SS Nitrite Ql (U) Negative (09/12/22 8:15 PM) Normal Negative [facility] UA Auto SS pH (U) 6.0 *NA* (09/12/22 8:15 PM) Invalid Interpretation Code 5.0 - 9.0 [facility] UA Auto SS Protein (U) [Mass/Vol] Negative (09/12/22 8:15 PM) Normal Negative [facility] UA Auto SS Specific gravity (U) [Rel density] 1.010 *NA* (09/12/22 8:15 PM) Invalid Interpretation Code 1.005 - 1.030 [facility] UA Auto SS UA Spec Desc Clean Catch (09/12/22 8:15 PM) Normal [facility] UA Auto SS Urobilinogen Qn (U) 0.3459407 {Rola'U}/dL Normal 0.0 - 1.0 EU/dL [facility] UA Auto SS WBC Auto Ql (U) Negative (09/12/22 8:15 PM) Normal Negative [facility] UA Auto SS WBC LM.HPF (Urine sed) [#/Area] 0-5 /HPF Normal 0-5/HPF [facility] UA Auto SS Coding Summary.on 09-11-2022 Coding Summary. Normal [facility] Consent for Treatmenton 08-16 Consent for Treatment [id number]#1.00CD:12 7 Normal [facility] Discharge Instructionson Discharge Instructions [id number]#1.00CD:1 27 Normal [facility] Inpatient Clinical Summaryon 09-08-2022 Inpatient Clinical Summary Normal [facility] Inpatient Patient Summaryon 09-08-2022 Inpatient Patient Summary Normal [facility] Coding Summary.on 09-06-2022 Coding Summary. Normal [facility] Discharge Instructionson Discharge Instructions [id number]#[id number]:1 27 Normal [facility] ED Clinical Summaryon 2021 ED Clinical Summary Normal [facility] ED Note-Nursingon 09-06-2022 ED Note-Nursing pt given d/c instruc tions and educated on importance of follow up. pt educated on new medications. pt verbalized understanding of instructions and readiness for d/c. pt walked self ambulatory to waiting room in stable condition Normal [facility] ED Patient Education Noteon 09-06-2022 ED Patient Education Note Normal [facility] ED Patient Summaryon 022 ED Patient Summary Normal [facility] XR Chest Single Viewon 09-06 XR Chest Single View Normal [facility] Auto Diffon 09-05-2022 Basophils/100 WBC (Bld) 1.0 % Normal 0.0-2.0 [facility] Comment on above: Order Comment: Order Added by Discern Expert. Performed By: #### 2 652283, 36875085, 64297655, 2301711, 49208276, 26047642, 2173377 ####[facility] [address] [place] [address] Basophils/Leukocytes Auto (Bld) [Pure # fraction] 0.1 E9/L Normal 0.0-0.2 [facility] Comment on above: Order Comment: Order Added by Discern Expert. Performed By: #### 2 656866, 10077344, 02398956, 8682709, 10418604, 14989443, 5089840 ####[facility] [address] [place] [address] Eosinophils/100 WBC (Bld) 1.4 % Normal 0.0-8.0 [facility] Comment on above: Order Comment: Order Added by Discern Expert. Performed By: #### 2 806853, 10800299, 09370549, 2137072, 48104878, 70374443, 4117788 ####[facility] [address] [place] [address] Eosinophils/Leukocytes Auto (Bld) [Pure # fraction] 0.2 E9/L Normal 0.0-0.5 [facility] Comment on above: Order Comment: Order Added by Discern Expert. Performed By: #### 2 537959, 03566238, 46444390, 4653848, 54082463, 65065768, 3455291 ####[place] [address] [place] [address] Lymphocytes/100 WBC (Bld) 18.8 % Normal 14.0-50.0 [facility] Comment on above: Order Comment: Order Added by Discern Expert. Performed By: #### 2 894564, 39583146, 44607879, 7680553, 34364589, 86658461, 0221381 ####[place] [address] [place] [address] Lymphocytes/Leukocytes Auto (Bld) [Pure # fraction] 2.0 E9/L Normal 1.0-4.0 [facility] Comment on above: Order Comment: Order Added by Discern Expert. Performed By: #### 2 572910, 04741130, 53431375, 4477389, 37379556, 42301877, 4163701 ####[address] [address] Monocytes/100 WBC (Bld) 6.8 % Normal 4.0-14.0 [facility] Comment on above: Order Comment: Order Added by Gisselle Expert. Performed By: #### 2 659978, 36158188, 98951984, 0793576, 10829665, 69463930, 2838470 ####[address] [address] Monocytes/Leukocytes Auto (Bld) [Pure # fraction] 0.7 E9/L Normal 0.2-1.0 [facility] Comment on above: Order Comment: Order Added by Discern Expert. Performed By: #### 2 662683, 43646482, 46285525, 4609434, 02612821, 33416751, 8179458 ####[address] [address] Neutrophils/100 WBC (Bld) 72.0 % Normal 36.0-75.0 [facility] Comment on above: Order Comment: Order Added by Discern Expert. Performed By: #### 2 897187, 29012123, 99168708, 5265410, 37215139, 46746756, 0714471 ####[facility] [address] [place] [address] Neutrophils/Leukocytes Auto (Bld) [Pure # fraction] 7.8 E9/L High 2.0-7.5 [facility] Comment on above: Order Comment: Order Added by Discern Expert. Performed By: #### 2 673826, 52470058, 54313828, 8370769, 07536824, 57952197, 4759330 ####[facility] [address] [place] [address] BMPon 09-05-2022 Creatinine [Mass/Vol] 0.7 mg/dL Normal 0.5-1.3 [facility] Comment on above: Performed By: #### 2 675642, 24978190, 11470884, 5431240, 50728293, 17357387, 9172817 ####[facility] [address] [place] [address] Urea nitrogen [Mass/Vol] 7 mg/dL Normal 5-21 [facility] Comment on above: Performed By: #### 2 901226, 76628236, 89744692, 2076220, 83217099, 45415950, 2216233 ####[facility] [address] [place] [address] Urea nitrogen/Creatinine [Mass ratio] 10 No Units Normal 10-20 [facility] Comment on above: Performed By: #### 2 932628, 59507206, 70774448, 6280528, 39257574, 78535811, 8392965 ####[facility] [address] [place] [address] Anion gap [Moles/Vol] 10 mmol/L Normal 6-16 [facility] Comment on above: Performed By: #### 2 482653, 71466228, 93417191, 2160574, 29508253, 44771794, 3599792 ####[facility] [address] [place] [address] Calcium [Mass/Vol] 8.8 mg/dL Low 8.9-11.1 [facility] Comment on above: Performed By: #### 2 756322, 95369631, 28054927, 2651292, 89051908, 32779617, 6198556 ####[facility] [address] [place] [address] Chloride [Moles/Vol] 102 mmol/L Normal 101-111 [facility] Comment on above: Performed By: #### 2 655938, 16230623, 97927066, 0183932, 19815235, 62239144, 6892478 ####[facility] [address] [place] [address] CO2 [Moles/Vol] 22 mmol/L Normal 21-31 [facility] Comment on above: Performed By: #### 2 931750, 54867144, 86033586, 7212800, 39566650, 53037969, 1794399 ####[facility] [address] [place] [address] Glucose [Mass/Vol] 87 mg/dL Normal 55-199 [facility] Comment on above: Result Comment: If t his glucose result represents a fasting glucose, interpretation should refer to the following reference range: 55-99 mg/dL Performed By: #### 2 203082, 30624411, 87995524, 5485891, 59970173, 26439226, 0060694 ####[facility] [address] [place] [address] Potassium [Moles/Vol] 3.3 mmol/L Low 3.5-5.3 [facility] Comment on above: Performed By: #### 2 864020, 19278601, 56741696, 0895673, 37429607, 21759810, 1208527 ####[facility] [address] [place] [address] Sodium [Moles/Vol] 131 mmol/L Low 135-145 [facility] Comment on above: Performed By: #### 2 313298, 38874940, 00920732, 5984556, 09547641, 53702689, 3302262 ####[facility] [address] [place] [address] BNPon 09-05-2022 Int Ctr BNP Pass Normal [facility] Comment on above: Performed By: #### 2 366941, 79784844, 96980588, 5750622, 96987125, 77583385, 9890880 ####[facility] [address] [place] [address] Natriuretic peptide B (Bld) [Mass/Vol] 8 pg/mL Normal 5-80 [facility] Comment on above: Performed By: #### 2 029140, 70412883, 23883498, 6620606, 34941931, 05005498, 1486252 ####[facility] [address] [place] [address] CBC w/ Auto Diffon Erythrocyte distribution width (RBC) [Ratio] 12.7 % Normal 10.9-14.2 [facility] Comment on above: Performed By: #### 2 319276, 89890124, 30476304, 7648024, 53092328, 58380990, 0152770 ####[facility] [address] [place] [address] Hematocrit (Bld) [Volume fraction] 34.2 % Normal 34.0-46.0 [facility] Comment on above: Performed By: #### 2 714601, 42180248, 62372291, 5562615, 34993683, 81921072, 4333545 ####[facility] [address] [place] [address] Hemoglobin (Bld) [Mass/Vol] 12.3 g/dL Normal 12.0-16.0 [facility] Comment on above: Performed By: #### 2 702473, 12960398, 79489226, 2777812, 70531284, 65583558, 9420609 ####[facility] [address] [place] [address] MCH (RBC) [Entitic mass] 31.8 pg Normal 27.0-34.0 [facility] Comment on above: Performed By: #### 2 627490, 40417172, 38933839, 2404581, 79250952, 79847640, 3118458 ####[facility] [address] [place] [address] MCHC (RBC) [Mass/Vol] 35.9 g/dL Normal 31.4-36.0 [facility] Comment on above: Performed By: #### 2 256372, 24996376, 53232062, 5027877, 97030469, 11969147, 4244251 ####[address] [address] MCV (RBC) [Entitic vol] 88.7 fL Normal 80.0-100.0 [facility] Comment on above: Performed By: #### 2 765973, 18381289, 67941421, 3930039, 42531970, 91886580, 2117424 ####[address] [address] Platelet mean volume (Bld) [Entitic vol] 9.8 fL Normal 6.4-10.8 [facility] Comment on above: Performed By: #### 2 979348, 99261625, 98179776, 2912863, 56990026, 47619089, 5023407 ####[address] [address] Platelets (Bld) [#/Vol] 215.0 E9/L Normal 150.0-500.0 [facility] Comment on above: Performed By: #### 2 435993, 38695036, 15537168, 7606270, 95285692, 12945389, 6025145 ####[address] [address] RBC (Bld) [#/Vol] 3.9 E12/L Low 4.3-5.9 [facility] Comment on above: Performed By: #### 2 407698, 23567274, 92454476, 5211708, 82627604, 74888067, 7159875 ####[facility] [address] [place] [address] WBC corrected for nucl RBC Auto (Bld) [#/Vol] 10.9 E9/L Normal 4.0-11.0 [facility] Comment on above: Result Comment: Slid e reviewed by ts. Performed By: #### 2 496987, 10289621, 33689977, 2389141, 37175931, 19912886, 2240909 ####[facility] [address] [place] [address] CHEMISTRYOrdered By: SYSTEM SYSTEM on 09-05-2022 Anion gap [Moles/Vol] 10 mmol/L Normal 6 - 16 mEq/L [facility] Remisol Calcium [Mass/Vol] 8.8 mg/dL Low 8.9 - 11. 1 mg/dL FT Remisol Chloride [Moles/Vol] 102 mmol/L Normal 101 - 1 11 mmol/L [facility] Remisol CO2 [Moles/Vol] 22 mmol/L Normal 21 - 31 mmol/L [facility] Creatinine [Mass/Vol] 0.7 mg/dL Normal 0.5 - 1.3 mg/dL [facility] GFR/1.73 sq M.predicted among blacks MDRD (S/P/Bld) [Vol rate/Area] mL/min/1.73 m2 Normal >=59mL/min/ 1.73 m2 [facility] Chem S GFR/1.73 sq M.predicted among non-blacks MDRD (S/P/Bld) [Vol rate/Area] mL/min/1.73 m2 Normal >=59mL/min/ 1.73 m2 [facility] Chem S Glucose [Mass/Vol] 87 mg/dL Normal 55 - 199 mg/dL [facility] Potassium [Moles/Vol] 3.3 mmol/L Low 3.5 - 5.3 mmol/L [facility] Sodium [Moles/Vol] 131 mmol/L Low 135 - 145 mmol/L [facility] Remisol Troponin I.cardiac [Mass/Vol] 4.70 pg/mL Low 10.10 - 27.10 pg/mL [facility] Remisol Urea nitrogen [Mass/Vol] 7 mg/dL Normal 5 - 21 mg/dL [facility] Remisol Urea nitrogen/Creatinine [Mass ratio] 10 mg/mg Normal 10 - 20 [facility] Remisol CHEMISTRYOrdered By: Temi hayden on 09-05-2022 Natriuretic peptide B (Bld) [Mass/Vol] 8 pg/mL Normal 5 - 80 pg/mL [facility] HemeManSS COAGULATIONOrdered By: Yamile Li on 09-05-2022 aPTT Coag (PPP) [Time] 27.1 s Normal 25.1 - 36.5 second(s) [facility] Auto Coag INR Coag (PPP) [Relative time] 0.9 {INR} Invalid Interpretation Code [facility] Auto Coag PT Coag (PPP) [Time] 10.3 s Normal 9.4 - 1 2.5 second(s) [facility] Auto Coag Consent for Treatmenton 08-16 Consent for Treatment [id number]#1.00CD:12 7 Normal [facility] ED Note-Nursingon 09-05-2022 ED Note-Nursing Normal [facility] ED Note-Physicianon 09-05-20 ED Note-Physician Normal [facility] Comment on above: Result Comment: Elec tronically Signed By: Gopi Rodriguez DO\brandi\Date and Time Signed: 09/05/22 21:46 EST Group B Strep by PCRon 09-05 Group B Strep colonization by PCR Negative Normal Negative [facility] Comment on above: Performed By: #### 4 [id number] ####[facility] [address] [place] [address] HEMATOLOGYOrdered By: SYSTEM SYSTEM on 09-05-2022 Basophils/100 WBC (Bld) 1.0 % Normal 0.0 - 2.0 % [facility] HemeAutoSS Basophils/Leukocytes Auto (Bld) [Pure # fraction] [...] 10.9 E9/L Normal 4.0 - 11.0 E9/L [facility] HemeAutoSS Comment on above: Result Comment: Slid e reviewed by ts. MICRO OTHER TESTSOrdered By: Valerie Li on 09-05-2022 Rapid COV Int NEG Ctl Pass (09/05/22 8:22 PM) Normal [facility] Man Sero Rapid COV Int POS Ctl Pass (09/05/22 8:22 PM) Normal [facility] Man Sero SARS-CoV+SARS-CoV-2 (COVID-19) Ag IA.rapid Ql (Resp) Detected 2 *ABN* (09/05/22 8:22 PM) Invalid Interpretation Code Not Detected [facility] Man Sero Comment on above: Result Comment: Resu lts Called To Berna Cook RN/ER By AGNIESZKA And Read Back For Confirmation On 09/05/2022 21:14:20 EST Results Verified By Repeat Analysis PT & PTTon 09-05-2022 aPTT Coag (PPP) [Time] 27.1 second(s) Normal 25.1-36.5 [facility] Comment on above: Result Comment: Para [...] the same coagulation reagent and instrumentation as [facility]. Currently there are no coagulation studies available worldwide for children to 14 days, and no normal ranges. Heparin therapeutic range (represented by Anti-Factor Xa activity of 0.2 - 0.4 U/mL) corresponds to PTT of 56.6 - 109.0 sec. Performed By: #### 2 369756, 54187290, 56865718, 7285393, 49523212, 79603941, 0398289 ####[facility] [address] [place] [address] INR Coag (PPP) [Relative time] 0.9 {INR} Invalid Interpretation Code [facility] Comment on above: Result Comment: INR results are specifically intended to assess patients stabilized on long-term Anticoagulation therapy suggested INR?s ?Less Intensive Anticoagulation? 2.0 ? 3.0Conventional Range 3.0 ? 4.5 Performed By: #### 2 186509, 19690984, 31441309, 3322894, 29428854, 16847937, 0886871 ####[facility] [address] [place] [address] PT Coag (PPP) [Time] 10.3 second(s) Normal 9.4-12.5 [facility] Comment on above: Result Comment: 15 [...] the same coagulation reagent and instrumentation as [facility]. Currently there are no coagulation studies available worldwide for children to 14 days, and no normal ranges. Performed By: #### 2 273740, 08802986, 17728643, 6729165, 59505025, 54653140, 0478069 ####[facility] [address] [place] [address] Rapid COVID Antigen ([facility])on 09-05-2022 Rapid COV Int NEG Ctl Pass Normal Fis [facility] Comment on above: Performed By: #### 2 [id number] ####[facility] [address] [place] [address] Rapid COV Int POS Ctl Pass Normal [facility] Comment on above: Performed By: #### 2 [id number] ####[facility] [address] [place] [address] SARS-CoV+SARS-CoV-2 (COVID-19) Ag IA.rapid Ql (Resp) Detected Abnormal Not Detected [facility] Comment on above: Result Comment: Resu lts Called To Berna Cook, RN/ER By AGNIESZKA And Read Back For Confirmation On 09/05/2022 21:14:20 ESTResults Verified By Repeat AnalysisThe WaterSmart Software System for Rapid Detection of SARS-CoV-2 is [...] For in vitro diagnostic use. In the [facility], only for use under an Emergency Use Authorization. In the [facility], this test has not been FDA cleared [...] or revoked sooner. Performed By: #### 2 [id number] ####[place] [address] ADMITTED TO INTENSIVE CARE UNIT FOR CONDITION OF INTEREST:FIND:PT: NO Normal [facility] Comment on above: Performed By: #### 2 [id number] ####[place] [address] EMPLOYED IN A HEALTHCARE SETTING:FIND:PT: NO Normal [facility] Comment on above: Performed By: #### 2 [id number] ####[place] [address] FIRST TEST FOR CONDITION OF INTEREST:FIND:PT: YES Normal [facility] Comment on above: Performed By: #### 2 [id number] ####[place] [address] HAS SYMPTOMS RELATED TO CONDITION OF INTEREST:FIND:PT: YES Normal [facility] Comment on above: Performed By: #### 2 [id number] ####[place] [address] HOSPITALIZED FOR CONDITION OF INTEREST:FIND:PT: NO Normal [facility] Comment on above: Performed By: #### 2 [id number] ####[place] [id number] STATUS:FIND:PT: NO Normal [facility] Comment on above: Performed By: #### 2 [id number] ####[place] [address] RESIDES IN A CONGREGATE CARE SETTING:FIND:PT: NO Normal [facility] Comment on above: Performed By: #### 2 [id number] ####[place] [address] Troponin 0 Hr.on 09-05-2022 Troponin I.cardiac [Mass/Vol] 4.70 pg/mL Low 10.10-27.10 [facility] Comment on above: Result Comment: The 95% CI (Confidence Interval) PPV (Positive Predictive Value) for myocardial infarction in females is 38 pg/mL, in males 51 pg/mL. The results should be used in conjunction with clinical conditions of myocardial infarction.(Access High Sensitivity Troponin I Instructions For Use, [employer], May 2018) Performed By: #### 2 916444, 25387225, 69772793, 7343394, 11813001, 77860209, 8834107 ####[facility] [address] [place] [address] eGFRon 09-05-2022 GFR/1.73 sq M.predicted among blacks MDRD (S/P/Bld) [Vol rate/Area] mL/min/{1.73_m2} Normal >=59 [facility] Comment on above: Order Comment: Order added by Discern Expert. Result Comment: eGFR is race adjusted. AA=. Performed By: #### 2 566826, [id number], 89803494, 6974008, 97945156, 10258994, 2903364 ####[facility] [address] [place] [address] GFR/1.73 sq M.predicted among non-blacks MDRD (S/P/Bld) [Vol rate/Area] mL/min/{1.73_m2} Normal >=59 [facility] Comment on above: Order Comment: Order added by Discern Expert. Result Comment: [place] Ranger lucy kidney disease could be indicated at eGFR's of less than 60 mL/min/1.73m2. Kidney failure is indicated at less than 15 mL/min/1.73m2. Performed By: #### 2 954611, 05379262, 21646114, 6513203, 13951633, 48483339, 6027772 ####[facility] [address] [place] [address] Coding Summary.on 09-04-2022 Coding Summary. Normal [facility] Nursing Assessmenton 022 Nursing Assessment [id number]#[id number]:1 27 Normal [facility] Physician Orderon 09-04-2022 Physician Order [id number]#[id number]:1 27 Normal [facility] ABO/Rhon 08-31-2022 ABO/Rh Positive Invalid Interpretation Code [facility] Comment on above: Performed By: #### 1 8923575, 7016204, 67025320, 41671508 ####[facility] [address] [place] [address] ABO/Rh History Checkon 08-31 ABO/Rh History Check Verified Hx Blood Type Normal [facility] Comment on above: Performed By: #### 1 2934150, 7379464, 70100787, 70433092 ####[facility] [address] [place] [address] ABSCon 08-31-2022 ABSC Gel Interp Negative Normal [facility] Comment on above: Performed By: #### 1 6264766, 1985888, 46777002, 39571989 ####[facility] [address] [place] [address] BUNon 08-31-2022 Urea nitrogen [Mass/Vol] 8 mg/dL Normal 03-04 [facility] Comment on above: Performed By: #### 2 316720, 4581461, 28481071, 6610278, 69205301, 8067245, 2250259, 8850220, 0672692, 2996130, 96021978 ####[facility] [address] [place] [address] Blood Bank ID#on 08-31-2022 BBID# [id number] Invalid Interpretation Code [facility] Comment on above: Performed By: #### 1 8382434, 0890734, 48407637, 04598171 ####[facility] [address] [place] [address] CBC w/Indiceson 08-31-2022 Erythrocyte distribution width (RBC) [Ratio] 12.9 % Normal 10.9-14.2 [facility] Comment on above: Performed By: #### 2 377599, 5010951, 08378876, 1339265, 42861110, 1956082, 5762164, 0848236, 9494736, 6436379, 39159828 ####[facility] [address] [place] [address] Hematocrit (Bld) [Volume fraction] 35.0 % Normal 34.0-46.0 [facility] Comment on above: Performed By: #### 2 238652, 0661719, 64247652, 9607348, 75863491, 1939921, 7903566, 2366444, 8811892, 8679908, 87393819 ####[facility] [address] [place] [address] Hemoglobin (Bld) [Mass/Vol] 12.0 g/dL Normal 12.0-16.0 [facility] Comment on above: Performed By: #### 2 379966, 6914239, 98780836, 9369964, 38567595, 5223933, 1522523, 7753075, 4073479, 8912761, 72435858 ####[facility] [address] [place] [address] MCH (RBC) [Entitic mass] 30.7 pg Normal 27.0-34.0 [facility] Comment on above: Performed By: #### 2 666287, 1473543, 25340132, 7328892, 72155480, 5847531, 4730615, 7791570, 8432602, 0094781, 29942857 ####[facility] [address] [place] [address] MCHC (RBC) [Mass/Vol] 34.4 g/dL Normal 31.4-36.0 [facility] Comment on above: Performed By: #### 2 220440, 6494378, 02753199, 1393467, 50891925, 4572689, 1617984, 5378608, 2474387, 0839320, 64667021 ####[facility] [address] [place] [address] MCV (RBC) [Entitic vol] 89.5 fL Normal 80.0-100.0 [facility] Comment on above: Performed By: #### 2 351043, 1734618, 65475044, 8345605, 00584742, 3002238, 6180010, 6084437, 1892159, 7589603, 91397885 ####[facility] [address] [place] [address] Platelet mean volume (Bld) [Entitic vol] 9.8 fL Normal 6.4-10.8 [facility] Comment on above: Performed By: #### 2 036513, 3038575, 07080134, 2413770, 93172339, 7357904, 2863125, 4219063, 1097403, 2794109, 25006573 ####[address] [address] Platelets (Bld) [#/Vol] 234.0 E9/L Normal 150.0-500.0 [facility] Comment on above: Performed By: #### 2 090953, 7906923, 85707953, 7244725, 54400663, 7679104, 0405896, 3014449, 0469981, 4525686, 59131609 ####[place] [address] [place] [address] RBC (Bld) [#/Vol] 3.9 E12/L Low 4.3-5.9 [facility] Comment on above: Performed By: #### 2 449952, 4012688, 53508753, 9778559, 06988836, 5017565, 5651921, 1150002, 4181628, 8485870, 19212918 ####[address] [place] [address] WBC corrected for nucl RBC Auto (Bld) [#/Vol] 12.6 E9/L High 4.0-11.0 [facility] Comment on above: Performed By: #### 2 605033, 3545960, 81501736, 3880112, 44413592, 8784909, 5736474, 1093552, 3090046, 7608129, 73149996 ####[facility] [address] [place] [address] Creatinineon 08-31-2022 Creatinine [Mass/Vol] 0.7 mg/dL Normal 0.5-1.3 [facility] Comment on above: Performed By: #### 2 545063, 2633021, 92904299, 0188374, 76352159, 4139576, 2420515, 6601960, 0831942, 5552493, 75970887 ####[facility] [address] [place] [address] Discharge Instructionson Discharge Instructions [id number]#[id number]:12 7 Normal [facility] Ethanolon 08-31-2022 Ethanol [Mass/Vol] mg/dL Normal <=7 [facility] Comment on above: Performed By: #### 2 782401 ####[facility] [address] [place] [address] FSPon 08-31-2022 Fibrin+Fibrinogen fragments (S) [Mass/Vol] <10 Normal <10 [facility] Comment on above: Performed By: #### 2 959805, 5974343, 70709300, 9146384, 08773383, 8065136, 6234659, 4807485, 3828445, 1797827, 52561480 ####[facility] [address] [place] [address] Stainon 08-31-2022 FMHV 0 mL Invalid Interpretation Code [facility] Comment on above: Performed By: #### 2 420605, 8677912, 15996036, 6272687, 43705366, 0339058, 6583168, 4518311, 3136564, 6079007, 50495899 ####[facility] [address] [place] [address] Negative Control Negative Normal [facility] Comment on above: Performed By: #### 2 475519, 9512665, 44299635, 7050538, 15633084, 8846560, 1352505, 4683182, 0604450, 0723418, 49953804 ####[facility] [address] [place] [address] Fibrinogenon 08-31-2022 Fibrinogen Coag (PPP) [Mass/Vol] 406 mg/dL High 200-393 [facility] Comment on above: Performed By: #### 2 252203, 4923676, 34253954, 4276095, 20784957, 1886161, 6501135, 6701779, 4117467, 4007721, 01424015 ####[facility] [address] [place] [address] Hep Func Panelon 08-31-2022 Bilirubin.indirect [Mass or moles/Vol] UTC Abnormal 0.1-0.9 [facility] Comment on above: Result Comment: Resu lt verified by Discern Rule. Performed result UTC (Unable to Calculate) was sent as an Alpha code due the inability to calculate a valid numeric value. Performed By: #### 2 896759, 8845422, 83254852, 8578449, 14386218, 7838385, 7551371, 6434190, 0147346, 1474252, 74208670 ####[facility] [address] [place] [address] Albumin [Mass/Vol] 2.8 g/dL Low 3.3-5.0 [facility] Comment on above: Performed By: #### 2 074410, 4810002, 78031369, 9408399, 20346411, 9642649, 0174099, 2503627, 5011930, 2363935, 42741794 ####[facility] [address] [place] [address] Albumin/Globulin (S) [Mass conc ratio] 0.7 Low 1.1-2.2 [facility] Comment on above: Performed By: #### 2 148485, 7895632, 18366254, 5167541, 07499490, 5910133, 4046589, 2814272, 6617816, 2355560, 67295639 ####[facility] [address] [place] [address] ALP [Catalytic activity/Vol] 80 Int._Unit/L Normal 21-98 [facility] Comment on above: Performed By: #### 2 781518, 8623673, 14987244, 5647957, 70863417, 5607820, 9419950, 8927978, 7047755, 9616331, 85160704 ####[address] [place] [address] ALT No additional P-5'-P [Catalytic activity/Vol] 10 Int._Unit/L Normal 6-46 [facility] Comment on above: Performed By: #### 2 913881, 3757211, 95069997, 8993560, 88491645, 5918262, 4764199, 8294712, 0795901, 7430382, 98359547 ####[address] [place] [address] AST [Catalytic activity/Vol] 16 Int._Unit/L Normal 5-43 [facility] Comment on above: Performed By: #### 2 399977, 3598386, 69733044, 7283963, 03166314, 5954964, 6325007, 4472463, 2308946, 4106274, 49961669 ####[facility] [address] [place] [address] Bilirubin [Mass/Vol] 0.1 mg/dL Normal 0.0-1.1 [facility] Comment on above: Performed By: #### 2 870153, 1300567, 84193399, 5196237, 99169953, 4267851, 4199182, 2266889, 8511461, 9139058, 99116435 ####[facility] [address] [place] [address] Bilirubin.direct [Mass/Vol] mg/dL Normal 0.1-0.4 [facility] Comment on above: Performed By: #### 2 047718, 1496019, 14549981, 1344703, 12394205, 5905251, 8807878, 4856088, 1144666, 8783004, 34006709 ####[facility] [address] [place] [address] Globulin (S) [Mass/Vol] 3.8 g/dL Normal 1.4-4.0 [facility] Comment on above: Performed By: #### 2 762701, 6294907, 25041741, 2342903, 87315302, 6280044, 6878354, 3753532, 9684567, 2897008, 06872475 ####[facility] [address] [place] [address] Protein [Mass/Vol] 6.6 g/dL Normal 6.0-7.8 [facility] Comment on above: Performed By: #### 2 825323, 9179664, 81478979, 5091211, 28514557, 0765933, 0891110, 7179277, 0513792, 1830042, 06755379 ####[facility] [address] [place] [address] Inpatient Clinical Summaryon 08-31-2022 Inpatient Clinical Summary Normal [facility] Inpatient Patient Summaryon 08-31-2022 Inpatient Patient Summary Normal [facility] Lyteson 08-31-2022 Anion gap [Moles/Vol] 13 mmol/L Normal 6-16 [facility] Comment on above: Performed By: #### 2 033601, 3276531, 05316485, 3700827, 83902726, 2928826, 5874675, 6817808, 7084331, 5999080, 82912665 ####[facility] [address] [place] [address] Chloride [Moles/Vol] 104 mmol/L Normal 101-111 [facility] Comment on above: Performed By: #### 2 130914, 2236106, 68513557, 4771187, 86640556, 4329206, 5788387, 3397830, 0178393, 1208766, 48545782 ####[facility] [address] [place] [address] CO2 [Moles/Vol] 22 mmol/L Normal 21-31 [facility] Comment on above: Performed By: #### 2 707234, 9758433, 37916646, 2314164, 54688567, 1976384, 7704785, 4001354, 1221915, 6144684, 86812041 ####[facility] [address] [place] [address] Potassium [Moles/Vol] 3.5 mmol/L Normal 3.5-5.3 [facility] Comment on above: Performed By: #### 2 498559, 1517985, 05433984, 6999634, 34526354, 2557091, 7052517, 1384539, 5435346, 2877924, 88222176 ####[facility] [address] [place] [address] Sodium [Moles/Vol] 135 mmol/L Normal 135-145 [facility] Comment on above: Performed By: #### 2 578430, 1521284, 14241023, 0381800, 42997197, 7141706, 5929778, 1185688, 7594201, 2300178, 78425370 ####[facility] [address] [place] [address] Nursing Assessmenton 022 Nursing Assessment [id number]#[id number]:12 7 Normal [facility] PT & PTTon 08-31-2022 aPTT Coag (PPP) [Time] 26.3 second(s) Normal 25.1-36.5 [facility] Comment on above: Result Comment: Para [...] the same coagulation reagent and instrumentation as [facility]. Currently there are no coagulation studies available worldwide for children to 14 days, and no normal ranges. Heparin therapeutic range (represented by Anti-Factor Xa activity of 0.2 - 0.4 U/mL) corresponds to PTT of 56.6 - 109.0 sec. Performed By: #### 2 614853, 3375411, 54113885, 9987487, 95809153, 1409412, 2140741, 2358566, 6203317, 3074133, 41605332 ####[facility] [address] [place] [address] INR Coag (PPP) [Relative time] 0.9 {INR} Invalid Interpretation Code [facility] Comment on above: Result Comment: INR results are specifically intended to assess patients stabilized on long-term Anticoagulation therapy suggested INR?s ?Less Intensive Anticoagulation? 2.0 ? 3.0Conventional Range 3.0 ? 4.5 Performed By: #### 2 243908, 7949376, 37311745, 5070131, 28329803, 9935329, 8212648, 1722689, 9019607, 4929237, 13691367 ####[facility] [address] [place] [address] PT Coag (PPP) [Time] 10.2 second(s) Normal 9.4-12.5 [facility] Comment on above: Result Comment: 15 [...] the same coagulation reagent and instrumentation as [facility]. Currently there are no coagulation studies available worldwide for children to 14 days, and no normal ranges. Performed By: #### 2 815919, 0935120, 18355626, 4014321, 06252337, 2496561, 3114833, 0708797, 5674878, 6583062, 90295186 ####[facility] [address] [place] [address] U Drug Screenon 08-31-2022 Amphetamines Screen method >1000 ng/mL Ql (U) Negative Normal Negative [facility] Comment on above: Result Comment: Nega tive Cutoff: <1000 ng/mL Performed By: #### 2 105714, 12273340 ####[facility] [address] [place] [address] Barbiturates Screen Ql (U) Negative Normal Negative [facility] Comment on above: Result Comment: Nega tive Cutoff: <200 ng/mL Performed By: #### 2 284157, 68135271 ####[facility] [address] [place] [address] Benzodiazepines Ql (U) Negative Normal Negative [facility] Comment on above: Result Comment: Nega tive Cutoff: <200 ng/mL Performed By: #### 2 156084, 32554614 ####[facility] [address] [place] [address] Cocaine Ql (U) Negative Normal Negative [facility] Comment on above: Result Comment: Nega tive Cutoff: <300 ng/mL Performed By: #### 2 126733, 43692064 ####[facility] [address] [place] [address] Opiates Screen Ql (U) Negative Normal Negative [facility] Comment on above: Result Comment: Nega tive Cutoff: <300 ng/mL Performed By: #### 2 087352, 20498279 ####[facility] [address] [facility] [place] [address] Phencyclidine Screen method >25 ng/mL Ql (U) Negative Normal Negative [facility] Comment on above: Result Comment: Nega tive Cutoff: <25 ng/mLThese drug screen results are to be used for medical (i.e., treatment) purposes only. Unconfirmed drug screening results must not be used for non-medical purposes (e.g., employment testing, legal testing). Performed By: #### 2 336519, 32413272 ####[facility] [address] [place] [address] Tetrahydrocannabinol Screen method >50 ng/mL Ql (U) Negative Normal Negative [facility] Comment on above: Result Comment: Nega tive Cutoff: <50 ng/mL Performed By: #### 2 501075, 98765034 ####[facility] [address] [place] [address] UA With Cult Reflexon 2021 Bacteria LM Ql (Urine sed) TRACE Normal Trace [facility] Comment on above: Performed By: #### 2 067260, 86016721 ####[facility] [address] [place] [address] Bilirubin Ql (U) Negative Normal Negative [facility] Comment on above: Performed By: #### 2 324700, 56586234 ####[facility] [address] [place] [address] Clarity (U) CLEAR Normal Clear [facility] Comment on above: Performed By: #### 2 815961, 60499827 ####[facility] [address] [place] [address] Color (U) YELLOW Normal Yellow [facility] Comment on above: Performed By: #### 2 321467, 89005287 ####[facility] [address] [place] [address] Epithelial cells.squamous LM.HPF (Urine sed) [#/Area] 0-2 Normal 0-2 [facility] Comment on above: Performed By: #### 2 920927, 74165793 ####[facility] [address] [place] [address] Glucose Test strip (U) [Mass/Vol] Negative Normal Negative [facility] Comment on above: Performed By: #### 2 129681, 06234342 ####[facility] [address] [place] [address] Hemoglobin Ql (U) Negative Normal Negative [facility] Comment on above: Performed By: #### 2 965558, 01410221 ####[facility] [address] [place] [address] Ketones (U) [Mass/Vol] Negative Normal Negative [facility] Comment on above: Performed By: #### 2 904926, 46776712 ####[facility] [address] [place] [address] [place].plasma/[place] .RBC (Bld) [Mass ratio] 0-3 Normal 0-3 [facility] Comment on above: Performed By: #### 2 480970, 08989188 ####[facility] [address] [place] [address] Nitrite Ql (U) Negative Normal Negative [facility] Comment on above: Performed By: #### 2 976225, 89096481 ####[facility] [address] [place] [address] pH (U) 6.0 [pH] Invalid Interpretation Code 5.0-9.0 [facility] Comment on above: Performed By: #### 2 005545, 70890238 ####[facility] [address] [place] [address] Protein (U) [Mass/Vol] Negative Normal Negative [facility] Comment on above: Performed By: #### 2 821086, 05415992 ####[place] [address] Specific gravity (U) [Rel density] 1.010 Invalid Interpretation Code 1.005-1.030 [facility] Comment on above: Performed By: #### 2 220779, 67041520 ####[address] [address] Type of Urine collection method Clean Catch Normal [facility] Comment on above: Performed By: #### 2 212508, 34226369 ####[address] [address] Urobilinogen Qn (U) 0.2 {Rola'U}/dL Normal 0.0-1.0 [facility] Comment on above: Performed By: #### 2 866960, 60115969 ####[place] [address] WBC Auto Ql (U) Negative Normal Negative [facility] Comment on above: Performed By: #### 2 298689, 96403814 ####[place] [address] WBC LM.HPF (Urine sed) [#/Area] 0-5 Normal 0-5 [facility] Comment on above: Performed By: #### 2 166581, 35363353 ####[address] [address] Uric Acidon 08-31-2022 Urate [Mass/Vol] 5.0 mg/dL Normal 2.2-7.4 [facility] Comment on above: Performed By: #### 2 507602, 2724155, 58753035, 5962841, 54667728, 8791818, 0809406, 6383031, 7219429, 4524193, 02886200 ####[address] [address] eGFRon 08-31-2022 GFR/1.73 sq M.predicted among blacks MDRD (S/P/Bld) [Vol rate/Area] mL/min/{1.73_m2} Normal >=59 [facility] Comment on above: Order Comment: Order added by Discern Expert. Result Comment: eGFR is race adjusted. AA=. Performed By: #### 2 107617, 6715905, 01467128, 6806750, 29678860, 3362866, 4211270, 4194884, 2294648, 6828072, 53202125 ####[facility] [address] [place] [address] GFR/1.73 sq M.predicted among non-blacks MDRD (S/P/Bld) [Vol rate/Area] mL/min/{1.73_m2} Normal >=59 [facility] Comment on above: Order Comment: Order added by Discern Expert. Result Comment: [place] lucy kidney disease could be indicated at eGFR's of less than 60 mL/min/1.73m2. Kidney failure is indicated at less than 15 mL/min/1.73m2. Performed By: #### 2 503543, 0214834, 10611085, 0287437, 93813593, 9616629, 8023172, 7710848, 0497652, 5399076, 78688394 ####[facility] [address] [place] [address] BLOOD BANKOrdered By: Naldo Li on 08-30-2022 ABO/Rh Interp Positive Invalid Interpretation Code [facility] BB Subsection ABSC Gel Interp Negative (08/30/22 11:51 PM) Normal [facility] BB Subsection FMHV 0 mL Invalid Interpretation Code [facility] Man Sero CHEMISTRYOrdered By: SYSTEM SYSTEM on [...] rate/Area] mL/min/1.73 m2 Normal >=59mL/min/ 1.73 m2 [facility] Chem S GFR/1.73 sq M.predicted among non-blacks MDRD (S/P/Bld) [Vol rate/Area] mL/min/1.73 m2 Normal >=59mL/min/ 1.73 m2 [facility] Chem S Globulin (S) [Mass/Vol] 3.8 g/dL [...] Consent for Treatmenton 08-15 Consent for Treatment [id number]#1.00CD:12 7 Normal [facility] HEMATOLOGYOrdered By: Naldo Li on 08-30-2022 [...] PM) Normal Negative [facility] UA Auto SS [place].plasma/[place] .RBC (Bld) [Mass ratio] 0-3 /HPF Normal 0-3/HPF [facility] UA Auto SS Nitrite Ql (U) Negative (08/30/22 9:45 PM) Normal Negative FT UA Auto SS pH [...] FT UA Auto SS Urobilinogen Qn (U) 0.8080620 {Rola'U}/dL Normal 0.0 - 1.0 EU/dL [facility] UA Auto SS WBC Auto Ql (U) Negative (08/30/22 9:45 PM) Normal Negative [facility] UA Auto SS WBC LM.HPF (Urine sed) [#/Area] 0-5 /HPF Normal 0-5/HPF [facility] UA Auto SS Coding Summary.on 08-28-2022 Coding Summary. Normal [facility] BLOOD BANKOrdered By: Janet Reyes on 08-22-2022 ABO/Rh Interp Positive Invalid Interpretation Code [facility] BB Subsection ABSC Gel Interp Negative (08/22/22 4:03 PM) Normal [facility] BB Subsection FMHV 0 mL Invalid Interpretation Code [facility] Man Sero CHEMISTRYOrdered By: SYSTEM SYSTEM on [...] rate/Area] mL/min/1.73 m2 Normal >=59mL/min/ 1.73 m2 [facility] Chem S Globulin (S) [Mass/Vol] 3.7 g/dL [...] PM) Normal Negative [facility] UA Auto SS [place].plasma/[place] .RBC (Bld) [Mass ratio] 0-3 /HPF Normal [...] [facility] UA Auto SS Urobilinogen Qn (U) 0.3827951 {Rola'U}/dL Normal 0.0 - 1.0 EU/dL [facility] [...] AM) Normal Negative [facility] UA Auto SS [place].plasma/[place] .RBC (Bld) [Mass ratio] 0-3 /HPF Normal [...] Desc Clean Catch (08/18/22 4:08 AM) Normal [facility] UA Auto SS Urobilinogen Qn (U) 0.4274736 {Rola'U}/dL Normal 0.0 - 1.0 EU/dL [facility] UA Auto SS WBC Auto Ql (U) 2+ *ABN* (08/18/22 4:08 AM) Invalid Interpretation Code Negative [facility] UA Auto SS WBC LM.HPF (Urine sed) [#/Area] 6-15 /HPF Invalid Interpretation Code 0-5/HPF [facility] UA Auto SS BLOOD BANKOrdered By: Tom Avelar on 08-13-2022 ABO/Rh Interp Positive Invalid Interpretation Code [facility] BB Subsection ABSC Gel Interp Negative (08/13/22 6:26 PM) Normal [facility] BB Subsection FMHV 0 mL Invalid Interpretation Code [facility] Man Sero CHEMISTRYOrdered By: SYSTEM SYSTEM on 08-13-2022 Albumin [Mass/Vol] 2.8 g/dL Low 3.3 - 5.0 gm/dL FT [...] Interpretation Code Negative [facility] UA Auto SS [place].plasma/[place] .RBC (Bld) [Mass ratio] 0-3 /HPF Normal [...] [facility] UA Auto SS Urobilinogen Qn (U) 0.0306880 {Rola'U}/dL Normal 0.0 - 1.0 EU/dL [facility] [...] AM) Normal Negative [facility] UA Auto SS [place].plasma/[place] .RBC (Bld) [Mass ratio] 0-3 /HPF Normal [...] [facility] UA Auto SS Urobilinogen Qn (U) 0.4744240 {Rola'U}/dL Normal 0.0 - 1.0 EU/dL [facility] [...] AM) Normal Negative [facility] UA Auto SS [place].plasma/[place] .RBC (Bld) [Mass ratio] 0-3 /HPF Normal 0-3/HPF [facility] UA Auto SS Nitrite Ql (U) Negative (07/17/22 9:25 AM) Normal Negative [facility] UA Auto SS pH (U) 7.0 *NA* (07/17/22 9:25 AM) Invalid Interpretation Code 5.0 - 9.0 [facility] UA Auto SS Protein (U) [Mass/Vol] Negative (07/17/22 9:25 AM) Normal Negative [facility] UA Auto SS Specific gravity (U) [Rel density] <=1.005 *NA* (07/17/22 9:25 AM) Invalid Interpretation Code 1.005 - 1.030 [facility] UA Auto SS UA Spec Desc Clean Catch (07/17/22 9:25 AM) Normal [facility] UA Auto SS Urobilinogen Qn (U) 0.7377584 {Rola'U}/dL Normal 0.0 - 1.0 EU/dL [facility] UA Auto SS WBC Auto Ql (U) Negative (07/17/22 9:25 AM) Normal Negative [facility] UA Auto SS WBC LM.HPF (Urine sed) [#/Area] 0-5 /HPF Normal 0-5/HPF [facility] UA Auto SS CHEMISTRYOrdered By: SYSTEM SYSTEM on 06-28-2022 Glucose 1 Hr post 50 g glucose PO [Mass/Vol] 93 mg/dL Normal 55 - 140 mg/dL [facility] Remisol HEMATOLOGYOrdered By: Keila Ring on 06-28-2022 Hematocrit (Bld) [Volume fraction] 35.4 % Normal 34.0 - 46.0 % [facility] HemeAutoSS Hemoglobin (Bld) [Mass/Vol] 12.1 g/dL Normal 12.0 - 16.0 gm/dL [facility] HemeAutoSS BLOOD BANKOrdered By: Jeanette Castle on 06-19-2022 ABO/Rh Interp Positive Invalid Interpretation Code [facility] BB Subsection ABSC Gel Interp Negative (06/19/22 12:15 AM) Normal [facility] BB Subsection FMHV 0 mL Invalid Interpretation Code [facility] Man Sero CHEMISTRYOrdered By: SYSTEM SYSTEM on 06-19-2022 Albumin [Mass/Vol] 2.9 g/dL Low 3.3 - 5.0 gm/dL [facility] Remisol Albumin/Globulin [Mass ratio] 0.8 {ratio} Low [...] rate/Area] mL/min/1.73 m2 Normal >=59mL/min/ 1.73 m2 [facility] Chem S GFR/1.73 sq M.predicted among non-blacks [...] PM) Normal Negative [facility] UA Auto SS [place].plasma/[place] .RBC (Bld) [Mass ratio] 0-3 /HPF Normal [...] [facility] UA Auto SS Urobilinogen Qn (U) 0.8032616 {Rola'U}/dL Normal 0.0 - 1.0 EU/dL [facility] [...] PM) Normal Negative [facility] UA Auto SS [place].plasma/[place] .RBC (Bld) [Mass ratio] 0-3 /HPF Normal [...] Desc Random Urine (05/01/22 5:20 PM) Normal [facility] UA Auto SS Urobilinogen Qn (U) 1.2834037 {Rola'U}/dL Normal 0.0 - 1.0 EU/dL [facility] Auto SS WBC Auto Ql (U) Negative (05/01/22 5:20 PM) Normal Negative [facility] UA Auto SS WBC LM.HPF (Urine sed) [#/Area] 0-5 /HPF Normal 0-5/HPF [facility] UA Auto SS BLOOD BANKOrdered By: Shayy Medina on 04-02-2022 ABO/Rh Interp Positive Invalid Interpretation Code [facility] BB Subsection ABSC Gel Interp Negative (04/02/22 7:17 AM) Normal [facility] BB Subsection FMHV 0 mL Invalid Interpretation Code [facility] Man Sero CHEMISTRYOrdered By: SYSTEM SYSTEM on [...] rate/Area] mL/min/1.73 m2 Normal >=59mL/min/ 1.73 m2 [facility] Chem S GFR/1.73 sq M.predicted among non-blacks MDRD (S/P/Bld) [Vol rate/Area] mL/min/1.73 m2 Normal >=59mL/min/ 1.73 m2 [facility] Chem S Globulin (S) [Mass/Vol] 3.0 g/dL [...] [Mass/Vol] <10 (04/02/22 7:17 AM) Normal <10 [facility] Man Sero Fibrinogen Coag (PPP) [Mass/Vol] 399 [...] 12.8 g/dL Normal 12.0 - 16.0 gm/dL FT [...] AM) Normal Negative [facility] UA Auto SS [place].plasma/[place] .RBC (Bld) [Mass ratio] 0-3 /HPF Normal [...] [facility] UA Auto SS Urobilinogen Qn (U) 0.8325296 {Rola'U}/dL Normal 0.0 - 1.0 EU/dL [facility] [...] PM) Normal Negative [facility] UA Auto SS [place].plasma/[place] .RBC (Bld) [Mass ratio] 0-3 /HPF Normal [...] Desc Clean Catch (03/23/22 7:54 PM) Normal [facility] UA Auto SS Urobilinogen Qn (U) 0.2262999 {Rola'U}/dL Normal 0.0 - 1.0 EU/dL FT [...] PM) Normal FT BB Subsection CHEMISTRYOrdered By: Aepona SYSTEM on 02-15-2022 TSH Qn 6.70 m[IU]/L [...] By: Stephanie Diana on 02-15-2022 Test Code 230114 Invalid Interpretation Code [facility] SendOuts Test Name IG PAP CTNG HPV Invalid Interpretation Code [facility] SendOutsSS CNPNon 05-05-2021 CNPN Telephone (Cerebrex) ----- SUSAN BRO ([id number]) 1995 F Date Time Provider Department 05/05/21 MARTHA WEBB During your visit today, we recorded the following information about you: Tucker Bales [employer] 05/05/2021 10:37 AM Signed Patient left message [...] diligent work on this patient Tucker Bales [employer] 05/24/2021 2:23 PM Signed patient called and left a message today stating she needs to get this figured out she has not eaten in 3 days and cant even drink water now. Patient can be reached at [phone]- please read messages below for refresher Martha Webb MD 05/24/2021 4:30 PM Signed Please advise patient to go to ER for evaluation Tucker Bales [employer] 05/24/2021 4:35 PM Signed Had to leave a message for the patient, left the message to go to ER. Also returned the call to [facility] and spoke to Alejandra that patient needs to go to ER for evalution. Martha Webb MD 05/26/2021 10:21 AM Signed Can you find out if patient went to ER and if so which one so we can get records Tucker Amairani [employer] 05/26/2021 3:28 PM Signed Pt did not [...] bed and continue this dose - rizatriptan (MAXALT-SALON ASSISTANT) 10 mg disintegrating tablet Take 1 tablet by mouth as needed for Migraine Headache (see administration instructions). AT ONSET OF HEADACHE. MAY REPEAT AFTER 2 HOURS. DO NOT EXCEED 30 MG PER DAY. Problem List As Of Date: 05/05/2021 (None) Encounter Status:Closed by [facility] [employer] SALES CONSULTANTTUCKER FOURNIER on 05/06/21 [facility] [place] 04-07-2021 CNPN Telephone (Cerebrex) ----- SUSAN BRO ([id number]) 1995 F Date Time Provider Department 04/07/21 MARTHA WEBB During your visit today, we recorded the following information about you: Tucker Bales [employer] Master 04/07/2021 12:31 PM Signed NM called and they need the GES solid orde rplaced even though she has to use ensure, please sign order in this encounter Allergies As of Date: 04/07/2021 Noted Allergy Reaction PENICILLINS 03/10/2021 2 - Rash Date Reviewed: 04/01/2021 Reviewed by: Odette Agosto MD - Fully Assessed Reason for Visit: Orders [681] Visit Diagnosis:Nausea [R11.0] Order(s):NM GASTRIC EMPTYING SOLID [[id number]] Order #: [id number] FUTURE Prescriptions as of 04/07/2021 Sig: AMITRIPTYLINE 10 MG TABLET Take 1 tab at bed x 1 week, t* RIZATRIPTAN 10 MG DISINTEGRAT* Take 1 tablet by mouth as nee* Problem List As Of Date: 04/07/2021 (None) Encounter Status:Closed by MARTHA WEBB on 04/07/21 [facility] 04-04-2021 CNPN Telephone (GSTCON) ----- SUSAN BRO ([id number]) 1995 F Date Time Provider Department 04/04/21 MARTHA WEBB During your visit today, we recorded the following information about you: Tucker Bales [employer] 04/04/2021 1:40 PM Signed Patient called and is still waiting for you to place the order for her GES with ensure, she cant eat the eggs and toast Martha Webb MD 04/04/2021 4:48 PM Signed Let patient know I placed the order Tucker Bales [employer] Master 04/05/2021 11:41 AM [address] you place [...] Visit Diagnosis:Nausea [R11.0] Order(s):NM GASTRIC EMPTYING LIQUID [[id number]] Order #: [id number] FUTURE Prescriptions as of 04/04/2021 Sig: AMITRIPTYLINE 10 MG TABLET Take 1 tab at bed x 1 week, t* RIZATRIPTAN 10 MG DISINTEGRAT* Take 1 tablet by mouth as nee* Problem List As Of Date: 04/04/2021 (None) Encounter Status:Closed by MARTHA WEBB on 04/05/21 [facility] CNOVon 04-01-2021 CNOV Office Visit ([facility] ) ----- SUSAN BRO ([id number]) 1995 F Date Time Provider Department 04/01/21 8:00 AM BERT NEGRETE [facility] During your visit today, we recorded the [...] at least 3 months. These include all dlde-yjc-omqedmp medications, triptans, narcotics, and butalbital containing medications [...] There h (more content not included)... [facility] ALLISONN Tele[facility] (GSTCON) ----- SUSAN BRO ([id number]) 1995 F Date Time Provider Department 03/22/21 MRATHA WEBB During your visit today, we recorded the following information about you: Tucker Bales [employer] 03/22/2021 2:28 PM Signed Received: Today MD Eusebia Banks Cig [employer] Clinical Pool; Tucker Bales [employer] Let patient know esophagram was normal Next step is gastric emptying study I placed order for gastric emptying study Tucker Bales [employer] 03/22/2021 2:28 PM Signed Pt is notified, will schedule the GES Allergies As of Date: 03/22/2021 Noted Allergy Reaction PENICILLINS 03/10/2021 2 - Rash Date Reviewed: 03/10/2021 Reviewed by: Martha Webb MD - Fully Assessed Reason for Visit: Results [95] Problem List As Of Date: 03/22/2021 (None) Encounter Status:Closed by TUCKER LARA on 03/22/21 Normal [facility] XR ESOPHAGRAMon 03-17-2021 XR ESOPHAGRAM * * [...] symptoms. Other Findings: None. IMPRESSION: Normal esophagram. Finish Off Operator: LUCITA Transcribe Date/Time: Mar 17 2021 11:15A Dictated by : CRISTÓBAL SALIANS DO This examination was interpreted and the report reviewed and electronically signed by: CRISTÓBAL SALINAS DO on Mar 17 2021 11:18AM EST [id number] [facility] 03-10-2021 CNOV Office Visit (GSTCON ) ----- SUSAN BRO ([id number]) 1995 F Date Time Provider Department 03/10/21 11:15 AM MARTHA WEBB During your visit today, we recorded the following information about you: Pulse Blood pressure Weight Height 69/minute 108/76 73 kg 1.626 m Martha Webb MD 03/10/2021 12:03 PM Signed This note was created using Vital Systemsriter. Subjective Susan Bro is a 25 year [...] COMMENT: Un (more content not included)... Normal [facility] CNPNon 03-10-2021 CNPN Telephone (GHADA) ----- SUSAN BRO ([id number]) 1995 F Date Time Provider Department 03/10/21 MARTHA WEBB During your visit today, we recorded the following information about you: Don Trevino [employer] Master 03/10/2021 1:24 PM Signed Failed fax in 1-800-DOCTORS from 03/10/2021 regarding this patient from Dr. Webb. Faxed manually to [phone]. Scanned fax confirmation/documents into 1-800-DOCTORS. Don Trevino [employer] Allergies As of Date: 03/10/2021 Noted Allergy Reaction PENICILLINS 03/10/2021 2 - Rash Date Reviewed: 03/10/2021 Reviewed by: Martha Webb MD - Fully Assessed Reason for Visit: Electronic Communication [890] Problem List As Of Date: 03/10/2021 (None) Encounter Status:Closed by DON DIAZ on 03/10/21 Normal [facility] CBC WITH AUTO DIFFERENTIALon 10-14-2020 Basophils (Bld) [#/Vol] 0.06 10*3/uL [facility] Basophils/100 WBC (Bld) 0.6 % [facility] Eosinophils (Bld) [#/Vol] 0.36 10*3/uL [facility] Eosinophils/100 WBC (Bld) 3.4 % [facility] Erythrocyte distribution width (RBC) [Entitic vol] 13.2 % 11.6 - 14.8 % [facility] Hematocrit (Bld) [Volume fraction] 43.2 % 36 - 46 % [facility] Hemoglobin (Bld) [Mass/Vol] 14.1 g/dL 12 - 16 g/dL [facility] Immature granulocytes (Bld) [#/Vol] 0.03 10*3/uL [facility] Immature granulocytes/100 WBC (Bld) 0.30 % [facility] Comment on above: The IG parameter is the percentage of metamyelocytes, myelocytes and promyelocytes. An immature granulocyte count (IG) of 1% or more suggests the possibility of infection, an IG count of 3% is very likely related to an infection. Interpretation and review of laboratory results Abnormal [facility] Lymphocytes (Bld) [#/Vol] 1.47 10*3/uL [facility] Lymphocytes/100 WBC (Bld) 13.8 % [facility] MCH (RBC) [Entitic mass] 29.6 pg 26 - 34 pg [facility] MCHC (RBC) [Mass/Vol] 32.6 g/dL 31 - 3 7 g/dL [facility] MCV (RBC) [Entitic vol] 90.6 fL 80 - 100 fL [facility] Monocytes (Bld) [#/Vol] 0.58 10*3/uL [facility] Monocytes/100 WBC (Bld) 5.5 % [facility] Neutrophils (Bld) [#/Vol] 8.12 10*3/uL High [facility] Neutrophils/100 WBC (Bld) 76.4 % [facility] Nucleated RBC (Bld) [#/Vol] 0.00 10*3/uL [facility] Nucleated RBC/100 WBC (Bld) [Ratio] 0.0 % [facility] Platelet mean volume (Bld) [Entitic vol] 10.3 fL 9.4 - 12.4 fL [facility] Platelets (Bld) [#/Vol] 251 10*3/uL [facility] RBC (Bld) [#/Vol] 4.77 10*6/uL [facility] ealth WBC (Bld) [#/Vol] 10.62 10*3/uL [facility] COVID-19/INFLUENZA A,B [facility] 10-14-2020 COVID-19/INFLUENZA A,B MOLECULAR SARS-COV-2 (SANA): Not Detected INFLUENZA A (SANA): Not Detected INFLUENZA B (SANA): Not Detected Normal Not Detected [facility] Comment on above: Order Comment: This test [...] at the following links: For Healthcare Providers: https://www.fda.gov/media/058853/download For Patients: https://www.fda.gov/media/500039/download Performed By: #### L [id number] #### [facility] [address] [place], [place] [address] Raffy Yadav M.D. [id number] COVID-19/Influenza A,B [facility] 10-14-2020 Influenza A Not Detected Not Detected [facility] Influenza B Not Detected Not Detected [facility] Interpretation and review of laboratory results Normal [facility] SARS-CoV-2 Not Detected Not Detected [facility] This test was perfor med under [...] the following links: For Healthcare Providers: https://www.fda.gov/media /750227/download For Patients: https://www.fda.gov/media /427697/download [facility] CT HEAD OR BRAIN WITHOUT CON [...] 14, 2020 11:28:15 AM EST Normal [facility] Comment on above: Order Comment: Injur y/Trauma [...] orbits and paranasal sinuses are grossly unremarkable. [facility] 1. No acute intracra nial hemorrhage, focal edema or mass effect. Workstation ID: [id number] [facility], Rad In Fu ji Speechq - 10/14/2020 11:30 AM EST [...] Workstation ID: [id number] [facility] Chem 7on 10-14-2020 Anion gap [Moles/Vol] 8 mmol/L Low 10 - 2 0 mmol/L [facility] Chloride [Moles/Vol] 112 mmol/L High 98 - 10 8 mmol/L [facility] Creatinine [Mass/Vol] 0.78 mg/dL 0.40 - 1.10 [facility] GFR/1.73 sq M predicted among non-blacks MDRD (S/P/Bld) [Vol rate/Area] The eGFR should be used for monitoring renal function only and not for medication dosing. [facility] GFR/1.73 sq M.predicted CKD-EPI (S/P/Bld) [Vol rate/Area] 105 >=60 mL/min/1.73 m2 [facility] Glucose [Mass/Vol] 78 mg/dL 65 - 99 mg/dL [facility] HCO3 [Moles/Vol] 24 mmol/L 21 - 32 mmol/L [facility] Interpretation and review of laboratory results Abnormal [facility] Potassium [Moles/Vol] 4.5 mmol/L 3.5 - 5.1 mmol/L [facility] Comment on above: moderate hemolysis, result may be falsely increased. Sodium [Moles/Vol] 139 mmol/L 135 - 145 mmol/L [facility] Urea nitrogen [Mass/Vol] 5 mg/dL Low 8 - 25 mg/dL [facility] Urea nitrogen/Creatinine [Mass ratio] 6.4 mg/mg Low [facility] Otheron 10-14-2020 Extra Tube Hold for add-ons. [facility] Comment on above: Auto resulted. URINALYSISon 10-14-2020 Bacteria Auto Ql (U) None Seen None Se en /hpf [facility] Bilirubin Ql (U) Negative Negative [facility] Clarity Refractometry automated (U) Cloudy Abnormal Clear [facility] Color (U) Yellow Colorless, Yellow [facility] Epithelial cells.squamous Auto (Urine sed) [#/Area] 18 High [facility] Glucose Auto test strip (U) [Mass/Vol] Negative Negative mg/dL [facility] Hemoglobin Auto test strip Ql (U) Negative Negative [facility] Interpretation and review of laboratory results Abnormal [facility] Ketones (U) [Mass/Vol] Negative Negat juju mg/dL [facility] Leukocyte esterase Auto test strip Ql (U) Trace Abnormal Negative [facility] h Mucus Auto (Urine sed) [#/Area] Many Abnormal None Seen, Rare /lpf [facility] Nitrite Auto test strip Ql (U) Negative Negative [facility] pH (U) 8.0 [pH] High [facility] Protein (U) [Mass/Vol] 30 Abnormal Negat juju mg/dL [facility] Comment on above: False positive resul ts may occur in urines with large amounts of hemoglobin, pH greater than 8.0, contrast medium, or disinfectants including ammonium compounds. RBC Auto (Urine sed) [#/Area] 3 [facility] Specific gravity (U) [Rel density] 1.028 High [facility] Urobilinogen (U) [Mass/Vol] 2.0 mg/dL Abnormal <2.0 [facility] WBC Auto (Urine sed) [#/Area] 3 [facility] Microscopic examinat ion is performed on all urinalysis samples and only positive findings are reported. The test for blood on the chemical analytic portion of urinalysis may also be positive due to hemoglobinuria and myoglobinuria and if red blood cells are present they are quantified by microscopic examination. [facility] hCG Urine, Qualitativeon HCG ( test) Ql (U) Negative Negative [facility] Interpretation and review of laboratory results Normal [facility] ABDOMEN, COMPLT ACUTE SERIES on 09-05-2020 ABDOMEN, COMPLT ACUTE SERIES Patient Name: SUSAN BRO STUDY: ABDOMEN, COMPLT ACUTE SERIES; 09/04/2020 11:54 pm INDICATION: constipation. COMPARISON: None. ACCESSION NUMBER(S): [id number] ORDERING CLINICIAN: BRAYDEN YANEZ TECHNIQUE: Abdomen supine [...] Electronically signed by: CANDACE AREVALO MD Normal [facility] BASIC METABOLIC PANELon 08-16 Anion gap [Moles/Vol] 12 mmol/L Normal 10 - 20 [facility] Comment on above: Performed By: #### B MP #### [address] [address] Calcium [Mass/Vol] 9.0 mg/dL Normal 8.6 - 10.3 [facility] Comment on above: Performed By: #### B MP #### [address] [address] Chloride [Moles/Vol] 105 mmol/L Normal 98 - 107 [facility] Comment on above: Performed By: #### B MP #### [address] [address] Creatinine [Mass/Vol] 0.90 mg/dL Normal 0.50 - 1.05 [facility] Comment on above: Performed By: #### B MP #### [address] [address] GFR- AM. >60 Normal >60 [facility] Comment on above: Result Comment: CALC ULATIONS OF ESTIMATED GFR ARE PERFORMED USING THE MDRD STUDY EQUATION FOR THE IDMS-TRACEABLE CREATININE METHODS. CLIN CHEM 2007;53:766-72 Performed By: #### B MP #### [address] [address] GFR-NON AM. >60 Normal >60 [facility] Comment on above: Performed By: #### B MP #### [address] [address] Glucose [Mass/Vol] 96 mg/dL Normal 74 - 99 [facility] Comment on above: Performed By: #### B MP #### [address] [address] HCO3 (Bld) [Moles/Vol] 25 mmol/L Normal 21 - 32 [facility] Comment on above: Performed By: #### B MP #### [address] [address] Potassium [Moles/Vol] 3.5 mmol/L Normal 3.5 - 5.3 [facility] Comment on above: Performed By: #### B MP #### [address] [address] Sodium [Moles/Vol] 138 mmol/L Normal 136 - 145 [facility] Comment on above: Performed By: #### B MP #### [address] [address] Urea nitrogen [Mass/Vol] 7 mg/dL Normal 6 - 23 [facility] Comment on above: Performed By: #### B MP #### [address] [address] CBCon 09-05-2020 Erythrocyte distribution width (RBC) [Ratio] 13.2 % Normal 11.5 - 14.5 [facility] Comment on above: Performed By: #### C BC #### [address] [address] Hematocrit (Bld) [Volume fraction] 42.5 % Normal 36.0 - 46.0 [facility] Comment on above: Performed By: #### C BC #### [address] [address] Hemoglobin (Bld) [Mass/Vol] 14.5 g/dL Normal 12.0 - 16.0 [facility] Comment on above: Performed By: #### C BC #### [address] [address] MCHC (RBC) [Mass/Vol] 34.2 g/dL Normal 32.0 - 36.0 [facility] Comment on above: Performed By: #### C BC #### [address] [address] MCV (RBC) [Entitic vol] 88 fL Normal 80 - 100 [facility] Comment on above: Performed By: #### C BC #### [address] [address] Platelets (Bld) [#/Vol] 272 10*3/uL Normal 150 - 450 [facility] Comment on above: Performed By: #### C BC #### [address] [address] RBC (Bld) [#/Vol] 4.86 x10E12/L Normal 4.00 - 5.20 [facility] Comment on above: Performed By: #### C BC #### [address] [address] WBC (Bld) [#/Vol] 12.5 10*3/uL High 4.4 - 11.3 [facility] Comment on above: Performed By: #### C BC #### [address] [address] HCG,URINEon 09-05-2020 Beta HCG ( test) Ql (U) Negative Normal Negative [facility] Comment on above: Performed By: #### H CGU #### [address] [address] Provider Note - ED v2on 08-16 Provider [...] SIGNIFICANT EVENTS: Past Medical History Description:H Pilory ADVERTISING JOB TITLES: Is : no(1) Is : no(1) REVIEW [...] 23:14:00], Urine Test [Drawn 04-Sep-2020:04:00], Urinalysis [Drawn 04-Sep-2020:04:00]. PHYSICAL EXAM Image Comments: [...] Scores Last Updated: 05-Sep-2020 01:49 by Brayden Yanze (DO) References: 1. Data Referenced From Triage - ED 04-Sep-2020 22:51 [facility] Risk Screen - Adult Emergenc yon 09-05-2020 Risk Screen - Adult Emergency Preferred Language: Preferred Language: Preferred Language for Discussing Health Care (patient/designee)[place] Advanced Directives: Advance Directive/DNRno Family Violence Adult: [...] an injured patient at a Trauma Center [place]/[place]/ [place]): no Electronic Signatures: Nette Dorantes (SUPV) (Signed 04-Sep-2020 23:08) Authored: Preferred Language, Advanced Directives, Family Violence Adult, Learning Assessment (Patient), Learning Assessment (Other Learner), Pressure Injury/TB/Substance, Pressure Injury, CAGE Last Updated: 04-Sep-2020 23:08 by Nette Dorantes (SUPV) [facility] Triage - EDon 09-05-2020 Triage - ED [...] BMI (kg/m2): 38.627 Calculated BSA (m2) 2.15 Andres Coma Scale: Best Eye Response: (E4) spontaneous Best Motor Response: (M6) obeys commands Best Verbal Response: (V5) oriented Andres Score: 15 Cough lasting greater than 3 weeks: no Patient immunocompromised related to: N/A Allergies: yes Last menstrual period: 05-Aug-2020 ADVERTISING JOB TITLES History: (states no form of BC) Patient [...] Medical History: Past Medical History Reviewedyes H Buckory: Past Medical History, Active Electronic Signatures: Nette Dorantes (SUPV) (Signed 04-Sep-2020 23:01) Entered: Risk Screens, Pain, Chart Review, Scores, Past Medical History Authored: Quick Triage, Risk Screens, Pain, Chart Review, Scores, Past Medical History Last Updated: 04-Sep-2020 23:01 by Nette Dorantes (SUPV) Normal [facility] URINALYSISon 09-05-2020 Appearance (U) CLEAR Normal CLEAR [facility] Comment on above: Performed By: #### U A #### [place] [address] Bilirubin (U) [Mass/Vol] Negative Normal NEGATIVE [facility] Comment on above: Performed By: #### U A #### [place] [address] BLOOD Negative Normal NEGATIVE [facility] Comment on above: Performed By: #### U A #### [place] [address] Color (U) Yellow Normal STRAW,YELLO W [facility] Comment on above: Performed By: #### U A #### [address] [address] Glucose [Mass/Vol] Negative Normal NEGATIVE [facility] Comment on above: Performed By: #### U A #### [place] [address] Ketones Ql (U) Negative Normal NEGATIVE [facility] Comment on above: Performed By: #### U A #### [place] [id number] Leukocyte esterase Test strip Ql (U) Negative Normal NEGATIVE [facility] Comment on above: Performed By: #### U A #### [place] [id number] Nitrite Ql (U) Negative Normal NEGATIVE [facility] Comment on above: Performed By: #### U A #### [address] [address] pH (Bld) 5.0 Normal 5.0 - 8.0 [facility] Comment on above: Performed By: #### U A #### [address] [address] Protein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 rate 78 /min Kaylinn Dokken [facility] 09-05-2022 21:01-0500 Respiratory rate 20 /min Kaylinn Dokken [facility] 09-05-2022 21:01-0500 SaO2% (BldA) [Mass fraction] 94 % Kaylinn Dokken [facility] 09-05-2022 21:00-0500 Diastolic blood pressure 77 mm[Hg] Kaylinn Dokken [facility] 09-05-2022 21:00-0500 Mean blood pressure 87 mm[Hg] Kaylinn Dokken [facility] 09-05-2022 20:10-0500 Body temperature 97.7 [degF] Kaylinn Dokken [facility] 09-05-2022 20:10-0500 Diastolic blood pressure 81 mm[Hg] Kaylinn Dokken [facility] 09-05-2022 20:10-0500 Heart rate 83 /min Kaylinn Dokken [facility] 09-05-2022 20:10-0500 Respiratory rate 22 /min Kaylinn Dokken [facility] 09-05-2022 20:10-0500 SaO2% (BldA) [Mass fraction] 99 % Kaylinn Dokken [facility] 09-05-2022 20:10-0500 Systolic blood pressure 135 mm[Hg] Gopi Rodriguez [facility] 08-31-2022 01:03-0500 Hourly Rounding Luis Carlos Jung [facility] Comment on above: Result Comment: pt ambulates off unit at this time w/ steady gait. 08-31-2022 00:58-0500 Hourly Rounding Luis Carlos Jung [facility] Comment on above: Result Comment: this nurse gives dischar ge instructions to pt at this time. pt verbalizes understanding of all education given. denies further needs. will continue to monitor. 08-31-2022 00:50-0500 Blood Pressure Location Luis Carlos Jung [facility] 08-31-2022 00:50-0500 Diastolic blood pressure 69 mm[Hg] Luis Carlos Jung [facility] 08-31-2022 00:50-0500 Heart rate 67 /min Luis Carlos Jung [facility] 08-31-2022 00:50-0500 Hourly Rounding Luis Carlos Jung [facility] Comment on above: Result Comment: pt up to bathroom at thi s time to void and change into clothes. walks w/ steady gait. 08-31-2022 00:50-0500 Mean blood pressure 83 mm[Hg] Luis Carlos Jung [facility] 08-31-2022 00:50-0500 Respiratory rate 18 /min Luis Carlos Jung [facility] 08-31-2022 00:50-0500 Systolic blood pressure 112 mm[Hg] Luis Carlos Jung [facility] 08-30-2022 21:52-0500 Body temperature 98.06 [degF] Luis Carlos Jung [facility] 08-30-2022 21:52-0500 Diastolic blood pressure 74 mm[Hg] Luis Carlos Jung [facility] 08-30-2022 21:52-0500 Heart rate 82 /min Luis Carlos Jung [facility] 08-30-2022 21:52-0500 Mean blood pressure 90 mm[Hg] Luis Carlos Jung [facility] 08-30-2022 21:52-0500 Respiratory rate 18 /min Luis Carlos Jung [facility] 08-30-2022 21:52-0500 Systolic blood pressure 123 mm[Hg] Luis Carlos Jung [facility] 08-30-2022 21:45-0500 Blood Pressure Location Luis Carlos Jung [facility] 08-22-2022 17:19-0500 Hourly Rounding Luis Carlos Jung [facility] Comment on above: Result Comment: MONITORS OFF; PT UP TO D RESS. DISCHARGE INSTRUCTIONS GIVEN WITH VERBAL UNDERSTANDING. 08-22-2022 15:14-0500 Diastolic blood pressure 71 mm[Hg] Luis Carlos Jung [facility] 08-22-2022 15:14-0500 Heart rate 87 /min Luis Carlos Jung [facility] 08-22-2022 15:14-0500 Hourly Rounding Luis Carlos Jung [facility] 08-22-2022 15:14-0500 Mean blood pressure 86 mm[Hg] Luis Carlos Jung [facility] 08-22-2022 15:14-0500 Respiratory rate 18 /min Luis Carlos Jung [facility] 08-22-2022 15:14-0500 Systolic blood pressure 115 mm[Hg] Luis Carlos Jung [facility] 08-18-2022 12:28-0400 Hourly Rounding Luis Carlos Jung [facility] Comment on above: Result Comment: pt verbalizes understand ing of discharge instructions. pt states she has an appointment sunday with dr jung. pt ambulated out of unit 08-18-2022 10:28-0400 Hourly Rounding Luis Carlos Jung [facility] Comment on above: Result Comment: pt c/o left lower abd pa in. states it is intermittent and sharp. encouraged pt to get up and empty bladder. pt states pain is still 04/23. dr jung on unit & at bedside 08-18-2022 09:09-0400 Hourly Rounding Luis Carlos Jung [facility] Comment on above: Result Comment: pt sitting up in bed wit h breakfast traleoncio, visitor at bedside 08-18-2022 07:15-0400 Blood Pressure Location Luis Carlos Jung [facility] 08-18-2022 07:15-0400 Diastolic blood pressure 56 mm[Hg] Luis Carlos Jung [facility] 08-18-2022 07:15-0400 Heart rate 69 /min Luis Carlos Jung [facility] 08-18-2022 07:15-0400 Mean blood pressure 74 mm[Hg] Luis Carlos Jung [facility] 08-18-2022 07:15-0400 Respiratory rate 16 /min Luis Carlos Jung [facility] 08-18-2022 07:15-0400 Systolic blood pressure 111 mm[Hg] Luis Carlos Jung [facility] 08-18-2022 05:58-0400 Blood Pressure Location Luis Carlos Jung [facility] 08-18-2022 05:58-0400 Diastolic blood pressure 59 mm[Hg] Luis Carlos Jung [facility] 08-18-2022 05:58-0400 Heart rate 67 /min Luis Carlos Jung [facility] 08-18-2022 05:58-0400 Mean blood pressure 77 mm[Hg] Luis Carlos Jung [facility] 08-18-2022 05:58-0400 Respiratory rate 16 /min Luis Carlos Jung [facility] 08-18-2022 05:58-0400 Systolic blood pressure 113 mm[Hg] Luis Carlos Jung [facility] 08-18-2022 04:06-0400 Blood Pressure Location Luis Carlos Jung [facility] 08-18-2022 04:06-0400 Body temperature 98.06 [degF] Luis Carlos Jung [facility] 08-18-2022 04:06-0400 Diastolic blood pressure 65 mm[Hg] Luis Carlos Jung [facility] 08-18-2022 04:06-0400 Heart rate 70 /min Luis Carlos Jung [facility] 08-18-2022 04:06-0400 Mean blood pressure 79 mm[Hg] Luis Carlos Jung [facility] 08-18-2022 04:06-0400 Respiratory rate 16 /min Luis Carlos Jung [facility] 08-18-2022 04:06-0400 Systolic blood pressure 107 mm[Hg] Luis Carlos Jung [facility] 08-13-2022 20:04-0400 Hourly Rounding Luis Carlos Jung [facility] Comment on above: Result Comment: Patient discharged off u nit. Discharge instructions were reviewed. Pt walks off unit without any notable signs or symtpoms of distress. 08-13-2022 19:45-0400 Hourly Rounding Luis Carlos Jung [facility] 08-13-2022 19:45-0400 Hourly Rounding Luis Carlos Jung [facility] Comment on above: Result Comment: Patient sitting in bed. BPP results reviewed with patient. Pt denied any additional questions. Call light within reach. 08-13-2022 18:12-0400 Heart rate 88 /min Luis Carlos Jung [facility] 08-13-2022 18:12-0400 Nursing Progress Note Reason Other: Pt updated on orders received from . amandaalizes understanding Luis Carlos Jung [facility] 08-13-2022 18:12-0400 SaO2% (BldA) [[facility]] 99 % [facility] 08-13-2022 17:33-0400 Body temperature 97.88 [degF] Luis Carlos Jung [facility] 08-13-2022 17:33-0400 Diastolic blood pressure 72 mm[Hg] Luis Carlos Jung [facility] 08-13-2022 17:33-0400 Mean blood pressure 88 mm[Hg] Luis Carlos Jung [facility] 08-13-2022 17:33-0400 Respiratory rate 18 /min Luis Carlos Jung [facility] 08-13-2022 17:33-0400 Systolic blood pressure 121 mm[Hg] Luis Carlos Jung [facility] 07-26-2022 10:22-0400 Hourly Rounding Luis Carlos Jung [facility] Comment on above: Result Comment: discharge instructions p rovided and pt signs discharge consent with RN witness. pt preparing for discharge, belly band placed on pt. RN offers wheelchair exit for discharge and pt declines and wants to walk down on own. 07-26-2022 10:22-0400 Promise to Return Luis Carlos Jung [facility] 07-26-2022 10:00-0400 Hourly Rounding Luis Carlos Jung [facility] 07-26-2022 10:00-0400 Promise to Return Luis Carlos Jung [facility] 07-26-2022 09:15-0400 Blood Pressure Location Luis Carlos Jung [facility] 07-26-2022 09:15-0400 Body temperature 97.7 [degF] Luis Carlos Jung [facility] 07-26-2022 09:15-0400 Diastolic blood pressure 62 mm[Hg] Luis Carlos Jung [facility] 07-26-2022 09:15-0400 Heart rate 70 /min Luis Carlos Jung [facility] 07-26-2022 09:15-0400 Hourly Rounding Luis Carlos Jung [facility] 07-26-2022 09:15-0400 Mean blood pressure 74 mm[Hg] Luis Carlos Jung [facility] 07-26-2022 09:15-0400 Respiratory rate 18 /min Luis Carlos Jung [facility] 07-26-2022 09:15-0400 Systolic blood pressure 97 mm[Hg] Luis Carlos Jung [facility] 07-26-2022 09:00-0400 Promise to Return Luis Carlos Jung [facility] 07-26-2022 08:14-0400 Body temperature 98.06 [degF] Luis Carlos Jung [facility] 07-26-2022 08:14-0400 Diastolic blood pressure 66 mm[Hg] Luis Carlos Jung [facility] 07-26-2022 08:14-0400 Heart rate 81 /min Luis Carlos Jung [facility] 07-26-2022 08:14-0400 Mean blood pressure 80 mm[Hg] Luis Carlos Jung [facility] 07-26-2022 08:14-0400 Respiratory rate 18 /min Luis Carlos Jung [facility] 07-26-2022 08:14-0400 Systolic blood pressure 109 mm[Hg] Luis Carlos Jung [facility] 07-17-2022 09:07-0400 Body temperature 97.88 [degF] Ko Dumas [facility] 07-17-2022 09:07-0400 Diastolic blood pressure 74 mm[Hg] Ko Dumas [facility] 07-17-2022 09:07-0400 Heart rate 85 /min Ko Dumas [facility] 07-17-2022 09:07-0400 Respiratory rate 16 /min Ko Dumas [facility] 07-17-2022 09:07-0400 SaO2% (BldA) [Mass fraction] 100 % Ko Dumas [facility] 07-17-2022 09:07-0400 Systolic blood pressure 117 mm[Hg] Ko Dumas [facility] 06-26-2022 21:38-0400 Blood Pressure Location Luis Carlos Fabiana [facility] 06-26-2022 21:38-0400 Diastolic blood pressure 61 mm[Hg] Luis Carlos Montesinosten [facility] 06-26-2022 21:38-0400 Heart rate 83 /min Luis Carlos Jung [facility] 06-26-2022 21:38-0400 Hourly Rounding Luis Carlos Jung [facility] Comment on above: Result Comment: discharged ambulatory to po 06-26-2022 21:38-0400 Mean blood pressure 75 mm[Hg] Luis Carlos Montesinosten [facility] 06-26-2022 21:38-0400 Respiratory rate 16 /min Luis Carlos Jung [facility] 06-26-2022 21:38-0400 Systolic blood pressure 102 mm[Hg] Luis Carlos Montesinosten [facility] 06-26-2022 21:15-0400 Blood Pressure Location Luis Carlos Jung [facility] 06-26-2022 21:15-0400 Diastolic blood pressure 64 mm[Hg] Luis Carlos Jung [facility] 06-26-2022 21:15-0400 Heart rate 74 /min Luis Carlos Jung [facility] 06-26-2022 21:15-0400 Hourly Rounding Luis Carlos Jung [facility] 06-26-2022 21:15-0400 Mean blood pressure 78 mm[Hg] Luis Carlos Montesinosten [facility] 06-26-2022 21:15-0400 Respiratory rate 16 /min Luis Carlos Montesinosten [facility] 06-26-2022 21:15-0400 Systolic blood pressure 106 mm[Hg] Luis Carlos Jung [facility] 06-26-2022 21:05-0400 Body temperature 97.88 [degF] Luis Carlos Jung [facility] 06-26-2022 21:05-0400 Respiratory rate 18 /min Luis Carlos Jung [facility] 06-26-2022 21:00-0400 Hourly Rounding Luis Carlos Jung [facility] Comment on above: Result Comment: ice water given 06-19-2022 01:30-0400 Hourly Rounding Luis Carlos Jung [facility] Comment on above: Result Comment: updated on plan of care after speaking to dr jung. verb understanding and all d/c instructions provided. denies further needs/concerns. ambulates off unit without any further questions. 06-19-2022 01:00-0400 Hourly Rounding Luis Carlos Jung [facility] Comment on above: Result Comment: rests in bed on phone. d enies any needs. denies any pain at this time or any pain or cramping since arrival. call light within reach 06-19-2022 00:15-0400 Hourly Rounding Luis Carlos Jung [facility] 06-18-2022 23:54-0400 Body temperature 97.88 [degF] Luis Carlos Jung [facility] 06-18-2022 23:54-0400 Diastolic blood pressure 65 mm[Hg] Luis Carlos Jung [facility] 06-18-2022 23:54-0400 Heart rate 76 /min Luis Carlos Jung [facility] 06-18-2022 23:54-0400 Mean blood pressure 81 mm[Hg] Luis Carlos Jung [facility] 06-18-2022 23:54-0400 Respiratory rate 18 /min Luis Carlos Jung [facility] 06-18-2022 23:54-0400 Systolic blood pressure 112 mm[Hg] Luis Carlos Jung [facility] 06-18-2022 23:45-0400 Blood Pressure Location Luis Carlos Jung [facility] 05-01-2022 17:45-0400 Hourly Rounding Luis Carlos Jung [facility] Comment on above: Result Comment: reviewed disch inst and meds to take states understanding 05-01-2022 17:30-0400 Hourly Rounding Luis Carlos Jung [facility] 05-01-2022 17:23-0400 Body temperature 98.06 [degF] Luis Carlos Jung [facility] 05-01-2022 17:23-0400 Diastolic blood pressure 57 mm[Hg] Luis Carlos Jung [facility] 05-01-2022 17:23-0400 Heart rate 83 /min Luis Carlos Jung [facility] 05-01-2022 17:23-0400 Mean blood pressure 71 mm[Hg] Luis Carlos Jung [facility] 05-01-2022 17:23-0400 Respiratory rate 16 /min Luis Carlos Jung [facility] 05-01-2022 17:23-0400 Systolic blood pressure 99 mm[Hg] Luis Carlos Jung [facility] 05-01-2022 17:15-0400 Blood Pressure Location Luis Carlos Jung [facility] 05-01-2022 17:15-0400 Hourly Rounding Luis Carlos Jung [facility] 04-02-2022 13:30-0400 Hourly Rounding Luis Carlso Jung [facility] Comment on above: Result Comment: pt given discharge instr uctions at this time to follow up with fabiana sunday or states understanding to call office tomorrow for appointment 04-02-2022 12:30-0400 Hourly Rounding Luis Carlos Fabiana [facility] Comment on above: Result Comment: pt returns to bed from r estroom at this time denies discomfort at this time 04-02-2022 11:30-0400 Hourly Rounding Luis Carlos Fabiana [facility] Comment on above: Result Comment: pt sitting in bed at thi s time denies needs or discomfort 04-02-2022 06:28-0400 Body temperature 99.68 [degF] Luis Carlos Fabiana [facility] 04-02-2022 06:28-0400 Diastolic blood pressure 68 mm[Hg] Luis Carlos Jung [facility] 04-02-2022 06:28-0400 Heart rate 89 /min Luis Carlos Jung [facility] 04-02-2022 06:28-0400 Heart rate 86 /min Luis Carlos Fabiana [facility] 04-02-2022 06:28-0400 Mean blood pressure 83 mm[Hg] Luis Carlos Fabiana [facility] 04-02-2022 06:28-0400 Respiratory rate 20 /min Luis Carlos Fabiana [facility] 04-02-2022 06:28-0400 SaO2% (BldA) [Mass fraction] 98 % Luis Carlos Fabiana [facility] 04-02-2022 06:28-0400 Systolic blood pressure 114 mm[Hg] Luis Carlos Jung [facility] 03-23-2022 21:08-0400 Hourly Rounding Luis Carlos Jung [facility] Comment on above: Result Comment: Patient ambulatory off u nit. No signs or symptoms of distress noted. 03-23-2022 20:35-0400 Hourly Rounding Luis Carlos Jung [facility] Comment on above: Result Comment: Patient updated on plan of care. Verbalizes understanding. Call light in reach. 03-23-2022 19:49-0400 Blood Pressure Location Luis Carlos Jung [facility] 03-23-2022 19:49-0400 Body temperature 98.78 [degF] Luis Carlos Jung [facility] 03-23-2022 19:49-0400 Diastolic blood pressure 66 mm[Hg] Luis Carlos Jung [facility] 03-23-2022 19:49-0400 Heart rate 69 /min Luis Carlos Montesinosten [facility] 03-23-2022 19:49-0400 Hourly Rounding Luis Carlos Jung [facility] Comment on above: Result Comment: Patient arrives on unit. 03-23-2022 19:49-0400 Mean blood pressure 79 mm[Hg] Luis Carlos Jung [facility] 03-23-2022 19:49-0400 Respiratory rate 16 /min Luis Carlos Montesinosten [facility] 03-23-2022 19:49-0400 Systolic blood pressure 106 mm[Hg] Luis Carlos Montesinosten [facility] 10-14-2020 13:15-0500 Pulse (Heart Rate) 74 /min [facility] 10-14-2020 13:15-0500 Pulse Oximetry 98 % [facility] 10-14-2020 13:15-0500 Respiratory Rate 16 /min Regine Chow [facility] 10-14-2020 13:00-0500 BP Diastolic 74 mm[Hg] [facility] 10-14-2020 13:00-0500 BP Systolic 123 mm[Hg] [facility] 10-14-2020 10:13-0500 BMI (Body Mass Index) 34.33 kg/m2 [facility] 10-14-2020 10:13-0500 Body Temperature 97.81 [degF] [facility] 10-14-2020 10:13-0500 Body weight 90.72 kg [facility] 10-14-2020 10:130500 Height 162.6 cm [facility] 08-09-2020 20:33-0400 BP Diastolic 81 mm[Hg] [place] 08-09-2020 20:33-0400 BP Systolic 122 mm[Hg] [place] 08-09-2020 20:33-0400 Pulse (Heart Rate) 78 /min [place] 08-09-2020 20:33-0400 Respiratory Rate 16 /min [place] 08-09-2020 19:03-0400 BMI (Body Mass Index) 39.48 kg/m2 [place] 08-09-2020 19:03-0400 Body Temperature 98.29 [degF] [place] 08-09-2020 19:03-0400 Body weight 104.33 kg [place] 08-09-2020 19:03-0400 Height 162.6 cm [place] 08-09-2020 19:03-0400 Pulse Oximetry 98 % [place] Encounters Encounter Date Encounter Type Care Provider Facility Start: 10-31-2023 End: 10-31-2023 ambulatory RASHAUN PURVIS Not Available Start: 10-18-2023 End: 10-18-2023 ambulatory DODIE MILLER Not Available Start: 10-03-2023 End: 10-03-2023 ambulatory DODIE MILLER Not Available Start: 09-12-2023 End: 09-12-2023 ambulatory RASHAUN PURVIS Not Available Start: 08-23-2023 End: 08-23-2023 Lab Drop off ZORAN MYRICK [facility] Start: 08-23-2023 End: 08-24-2023 ambulatory DELI CUTTER SLICER ZORAN MYRICK Facility:[facility] Start: 08-19-2023 End: 09-14-2023 Pre-admission assessment Julia Haywood [facility] Start: 08-18-2023 End: 08-18-2023 ambulatory DO Julia DukePatricia Haywood Facility:[facility] Start: 08-18-2023 End: 08-18-2023 OB Triage Julia DukePatricia Haywood [facility] Start: 07-25-2023 End: 07-25-2023 Emergency department patient visit Kristian Guillermo Facility:[facility] Start: 07-25-2023 End: 07-25-2023 Emergency department patient visit Kristian Guillermo [facility] Start: 06-28-2023 End: 06-29-2023 ambulatory Roverto V. Spasic Facility:[facility] Start: 06-28-2023 End: 06-28-2023 Patient encounter procedure Roverto V. Spasic [facility] Start: 06-14-2023 End: 06-14-2023 Emergency department patient visit Kristian Guillermo Facility:[facility] Start: 06-14-2023 End: 06-14-2023 Emergency department patient visit Kristian Guillermo [facility] Start: 06-12-2023 End: 06-13-2023 ambulatory Luis Carlos Jung Facility:[facility] Start: 06-12-2023 End: 06-12-2023 Patient encounter procedure Luis Carlos Jung [facility] Start: 05-21-2023 End: 05-22-2023 Emergency department patient visit DO Gopi Rodriguez Facility:[facility] Start: 05-21-2023 End: 05-21-2023 Emergency department patient visit Gopi Rodriguez [facility] Start: 04-30-2023 End: 05-01-2023 ambulatory Luis Carlos Jung Facility:[facility] Start: 04-30-2023 End: 04-30-2023 Lab Drop off Luis Carlos Jung [facility] Start: 04-30-2023 End: 05-01-2023 ambulatory Luis Carlos Jung Facility:[facility] Start: 04-30-2023 End: 04-30-2023 Patient encounter procedure Luis Carlos Jung [facility] Start: 04-26-2023 End: 04-26-2023 Emergency department patient visit Vimalelena Leonfelipe Facility:[facility] Start: 04-26-2023 End: 04-26-2023 Emergency department patient visit Laura Araceli Bert [facility] Start: 01-31-2023 End: 01-31-2023 Emergency department patient visit Kristian Guillermo Facility:[facility] Start: 01-31-2023 End: 01-31-2023 Emergency department patient visit Kristian Guillermo [facility] Start: 09-24-2022 End: 09-27-2022 Evaluation and management of inpatient Luis Carlos Jung Facility:[facility] Start: 09-22-2022 End: 09-22-2022 ambulatory Luis Carlos Jung Facility:[facility] Start: 09-22-2022 End: 09-22-2022 OB Triage Luis Carlos Jung [facility] Start: 09-20-2022 End: 09-20-2022 ambulatory Luis Carlos Jung Facility:[facility] Start: 09-20-2022 End: 09-20-2022 OB Triage Luis Carlos Jung [facility] Start: 09-19-2022 End: 09-19-2022 ambulatory Jj MIKE Facility:[facility] Start: 09-19-2022 End: 09-19-2022 OB Triage Jj MIKE [facility] Start: 09-14-2022 End: 09-14-2022 ambulatory Luis Carlos Jung Facility:[facility] Start: 09-14-2022 Emergency department patient visit DO Gopi Rodriguez Facility:[facility] Start: 09-14-2022 End: 09-14-2022 OB Triage Luis Carlos Rochelle Jung [facility] Start: 09-12-2022 End: 09-12-2022 ambulatory Luis Carlos Rochelle Jung Facility:[facility] Start: 09-12-2022 End: 09-12-2022 OB Triage Luis Carlos Rochelle Jung [facility] Start: 09-08-2022 End: 09-08-2022 ambulatory Luis Carlos Jung Facility:[facility] Start: 09-08-2022 End: 09-08-2022 OB Triage Luis Carlos Rochelle Jung [facility] Start: 09-06-2022 End: 12-06-2022 ambulatory Luis Carlos Rochelle Jung Facility:[facility] Start: 09-05-2022 End: 09-06-2022 Emergency department patient visit DO Gopi Rodriguez Facility:[facility] Start: 09-05-2022 End: 09-05-2022 Emergency department patient visit Gopi Rodriguez [facility] Start: 09-05-2022 End: 12-05-2022 Patient encounter procedure SELF REFERRAL [facility] Start: 09-04-2022 End: 09-05-2022 ambulatory Luis Carlos Jung Facility:[facility] Start: 09-04-2022 End: 09-04-2022 Lab Drop off Luis Carlos Jung [facility] Start: 08-30-2022 End: 08-31-2022 ambulatory Luis Carlos Jung Facility:[facility] Start: 08-30-2022 End: 08-31-2022 OB Triage Luis Carlos Jung [facility] Start: 08-22-2022 End: 08-22-2022 OB Triage Luis Carlos Jung [facility] Start: 08-18-2022 End: 08-18-2022 OB Triage Luis Carlos Jung [facility] Start: 08-13-2022 End: 08-13-2022 OB Triage Luis Carlos Jung [facility] Start: 07-26-2022 End: 07-26-2022 OB Triage Luis Carlos Jung [facility] Start: 07-17-2022 End: 07-17-2022 Emergency department patient visit Ko Dumas [facility] Start: 06-28-2022 End: 06-28-2022 Patient encounter procedure Luis Carlos Byrd Fabiana [facility] Start: 06-26-2022 End: 06-26-2022 OB Triage Luis Carlos Jung [facility] Start: 06-20-2022 End: 07-15-2022 Pre-admission assessment Luis Carlos Jung [facility] Start: 06-18-2022 End: 06-19-2022 OB Triage Luis Carlos Byrd Fabiana [facility] Start: 05-02-2022 End: 06-15-2022 Pre-admission assessment THANG MILLAN [facility] Start: 05-01-2022 End: 05-01-2022 OB Triage Luis Carlos Byrd Fabiana [facility] Start: 04-02-2022 End: 04-02-2022 OB Triage Luis Carlos Jung [facility] Start: 03-23-2022 End: 03-23-2022 OB Triage Luis Carlos Jung [facility] Start: 03-16-2022 End: 03-16-2022 Patient encounter procedure Luis Carlos Jung [facility] Start: 02-15-2022 End: 02-15-2022 Lab Drop off Luis Carlos Jung [facility] Start: 02-23-2021 End: 02-23-2021 Patient encounter procedure Martha Webb MD Work Phone: [facility] Start: 02-23-2021 Results Only Martha Webb MD Work Phone: Gastroenterology Start: 10-14-2020 End: 10-14-2020 Emergency department patient visit PHYSICIAN NO [facility] Start: 10-14-2020 End: 10-14-2020 Emergency department patient visit Regine Chow Work Phone: [facility] Emergency Department Comment on above: Vertigo (Primary Dx) Start: 08-09-2020 End: 08-09-2020 Emergency department patient visit [facility] Start: 08-09-2020 End: 08-09-2020 Emergency department patient visit [facility] Work Phone: [facility] ED Comment on above: Contusion of right k nee, initial encounter (Primary Dx); Contusion of multiple sites of right shoulder and upper arm, initial encounter Start: 07-23-2017 End: 07-23-2017 Emergency department patient visit NKECHI TORRES [facility] Guerra Procedures Date Procedure Procedure Detail Performing [...] count with white cell differential, automated Susan Griffiths Work Phone: Start: 10-14-2020 Complete blood count with white cell differential, manual Susan Griffiths Work Phone: Start: 10-14-2020 COVID-19/INFLUENZA A,B MOLECULAR Susan Griffiths Work Phone: Start: 10-14-2020 Choriogonadotropin ( test) [Presence] in Urine Regine Hcow Work Phone: Start: 10-14-2020 End: 10-14-2020 RAINBOW DRAW Regine Chow Work Phone: Start: 10-14-2020 Urinalysis Regine Chow Work Phone: Start: 10-14-2020 URINE CONTAINER Regine Chow Work Phone: Start: 08-09-2020 Radex elbow 2 views BAKARI OCURT Start: 08-09-2020 Radex shoulder complete minimum [address] Start: 08-09-2020 Radiologic examination femur minimum [...] 05-12-2028 Tetanus vaccination Tetanus: Every 1 0yrs [facility] Start: 06-15-2021 Influenza vaccination INFLUENZ A (Season Ended) [facility] Start: 06-15-2020 Influenza vaccination Flu vaccine (# 1) [place] Start: 2014 PAP TESTING PAP TESTING [facility] Start: 2014 Screening for malign ant neoplasm of cervix Cervical cancer screen [place] Start: 2012 DTaP/Tdap/Td vaccine (1 - Tdap) DTaP/Tdap/Td vaccine (1 - Tdap) [place] Start: 2012 Urine microalbumin profile DTAP,TDAP,TD (1 - Tdap) [facility] Start: 2011 Hepatitis C antibody , confirmatory test Hepatitis C Screening [facility] Start: 2011 HEPATITIS C SCREENING HEPATITIS C SC YUE [facility] Start: 2011 HIV SCREENING HIV SCREENING [facility] Start: 2008 HIV screening [place], [place] Start: 2005 Adolescent depressio n screening assessment [facility] Start: 2004 HPV vaccine (1 - 2-d ose series) HPV vaccine (1 - 2-dose series) [place] Start: 1996 History and physical examination, annual for health maintenance Wellness Visit [facility] Start: 1994 Varicella vaccine (1 of 2 - 2-dose childhood series) Varicella vaccine (1 of 2 - 2-dose childhood series) [place] Start: 1993 Screening for malign ant neoplasm of cervix Pap Smear [facility] PT ED PATIENT INFORMATION PT ED PATIENT INFORMATION Other 02/23/2021 [facility] Immunizations Immunization Date Immunization Notes Care Provider Lennox ramirez 08-18-2023 influenza, seasonal, injectable Julia Yobany [facility] 09-25-2022 influenza, seasonal, injectable SELF REFERRAL [facility] Comment on above: Early/Late Reason: E isaac/Late Reason: Nursing Judgment 01-28-2021 COVID-19, mRNA, LNP- S, PF, 30 mcg/0.3 mL dose; Translations: [[employer] COVID-19 Vaccine] Luis Carlos Jung [facility] Comment on above: Reason for Medicatio n: Prophylaxis Reason for Medicatio n: Prophylaxis 12-31-2020 COVID-19, mRNA, LNP- S, PF, 30 mcg/0.3 mL dose; Translations: [[employer] COVID-19 Vaccine] Luis Carlos Jung [facility] Comment on above: Reason for Medicatio n: Prophylaxis Reason for Medicatio n: Prophylaxis 05-12-2018 tetanus toxoid, reduced diphtheria toxoid, and acellular pertussis vaccine, adsorbed; Translations: [Adacel (Tdap)] Luis Carlos Jung [facility] Payers Date Payer Category Payer Unknown [id number] 2019 Unknown [id number] 1. [id number] 1993 Unknown [id number] 2.16.8 40.1.462981.3.579.2.173 1993 Unknown [id number] 2.16. 840.1.184693.3.579.2.903 1993 Unknown [id number] 2.16.8 40.1.751515.3.579.2.727 1993 Unknown [id number] 2.16.8 40.1.428483.3.579.2.727 1993 Unknown [id number] 2.16.8 40.1.464899.3.579.2.727 1993 Unknown [id number] 2.16.8 40.1.825930.3.579.2.727 1993 Unknown [id number] 2.16.8 40.1.874487.3.579.2.727 1993 Unknown [id number] 2.16.8 40.1.487844.3.579.2.727 1993 Unknown [id number] 2.16.8 40.1.758258.3.579.2.727 1993 Unknown [id number] 2.16.8 40.1.936542.3.579.2.727 1993 Unknown [id number] 2.16.8 40.1.072464.3.579.2.72 1993 Unknown [id number] 2.16.8 40.1.202123.3.579.2.72 1993 Unknown [id number] 2.16.8 40.1.061221.3.579.2. 1993 Unknown [id number] 2.16.8 40.1.593908.3.579.2. 1993 Unknown [id number] 2.16.8 40.1.331493.3.579.2. 1993 Unknown [id number] 2.16.8 40.1.727437.3.579.2. 1993 Unknown [id number] 2.16.8 40.1.239092.3.579.2. 1993 Unknown [id number] 2.16.8 40.1.332515.3.579.2. 1993 Unknown [id number] 2.16.8 40.1.209869.3.579.2. 1993 Unknown [id number] 2.16.8 40.1.173355.3.579.2. 1993 Unknown [id number] 2.16.8 40.1.019733.3.579.2. 1993 Unknown [id number] 2.16.8 40.1.118990.3.579.2. 1993 Unknown [id number] 2.16.8 40.1.656336.3.579.2. 1993 Unknown [id number] 2.16.8 40.1.426019.3.579.2.72 1993 Unknown [id number] 2.16.8 40.1.511723.3.579.2.727 1993 Unknown [id number] 2.16.8 40.1.463346.3.579.2.727 1993 Unknown [id number] 2.16.84 0.1.769276.3.579.2.1259 1993 Unknown [id number] 2.16.840 .1.012543.3.579.2.1259 1993 Unknown [id number] 2.16.840 .1.193989.3.579.2.1259 1993 Unknown [id number] 2.16.840 .1.292886.3.579.2.1259 1993 Unknown [id number] 2.16.840 .1.891830.3.579.2.1259 Social History Date Type Detail Facility Start: 08-09-2020 End: 10-14-2020 Tobacco smoking status NHIS Current every day smoker [place] Start: 08-09-2020 End: 10-14-2020 Tobacco use and exposure Never used [place] Start: 10-14-2020 Alcohol intake Ex-drinker (finding) [facility] Start: 1993 Sex Assigned At Not on file M [place], [place] Exposure to SARS-CoV -2 (event) Not sure [place] Start: 08-09-2020 Cigarettes smoked current (pack per day) - Reported [place] Start: 08-09-2020 Alcohol intake Lifetime non-d val (finding) [place] Start: 08-09-2020 History SDOH Alcohol Frequency 1 [place] Start: 07-06-2021 End: 08-18-2022 Tobacco smoking status Light tobacco smoker (finding) [facility] Sex Assigned At Female [facility] Tobacco [facility] Comment on above: current current denies Start: 06-28-2023 Tobacco smoking status Ex-smoker (fi nding) [facility] Comment on above: current Tobacco smoking status Never [facility] Comment on above: current Tobacco smoking status No Smokin g Status Entered [facility] Functional Status Date Assessment Result Facility 08-18-2023 Functional Status N/A [facility] 07-25-2023 Functional Status N/A [facility] 06-28-2023 Functional Status N/A [facility] 06-14-2023 Functional Status N/A [facility] 05-21-2023 Functional Status N/A [facility] 04-26-2023 Functional Status N/A [facility] 01-31-2023 Functional Status N/A [facility] 09-22-2022 Functional Status N/A [facility] 09-20-2022 Functional Status N/A [facility] 09-19-2022 Functional Status N/A [facility] 09-14-2022 Functional Status N/A [facility] 09-12-2022 Functional Status N/A [facility] 09-08-2022 Functional Status N/A [facility] 09-05-2022 Functional Status Yes [facility] 08-30-2022 Functional Status N/A [facility] 08-22-2022 Functional Status N/A [facility] 08-18-2022 Functional Status N/A [facility] 08-13-2022 Functional Status N/A [facility] 07-26-2022 Functional Status N/A [facility] 07-17-2022 Functional Status N/A [facility] 06-26-2022 Functional Status N/A [facility] 06-18-2022 Functional Status N/A [facility] 05-01-2022 Functional Status N/A [facility] 04-02-2022 Functional Status N/A [facility] Clinical Notes 03-10-2021 to 08-23-2023 Note Date & Type Note Facility 08-23-2023 Evaluation + Plan note Diagnostic Tests PendingT3 Total 08/23/23 [facility] 08-18-2023 Note The following Patien t Education Materials have been given to the patient: EducationMaterial [facility] 08-18-2023 Hospital Discharg e instructions Patient Education 08/18/2023 08:14:46 Second Trimester of , Ohup-ep-Fitp Second Trimester of The second trimester of [...] Follow these instructions at home: Medicines Take bxxo-ltf-oeokgnh and prescription medicines only as told by [...] a counselor. Where to find more information [place] [employer]: americanpregnancy.org [place] [employer]: www.acog.org Office [...] provider. Document Revised: 03/09/2021 Document Reviewed: 01/13/2021 [employer] Patient Education 2022 [employer] [facility] 07-25-2023 Evaluation + Plan note [...] Diagnostic Tests Pending * Urine Culture 07/25/23 [facility]10-11-2023 Hospital Discharge instructions Patient Education [...] to keep your urine pale yellow. Take ryia-yub-pteyleq and prescription medicines only as told by [...] provider. Document Revised: 06/14/2021 Document Reviewed: 06/14/2021 [employer] Patient Education 2022 [employer] Follow Up Care 07/25/2023 08:14:26 With:Luis Carlos Jung Address: [facility] [place], [address] [address]- Business (1) When:07/28/2023 09:56:27 [facility]09-14-2023 Evaluation + Plan note Diagnostic Tests Pending * Urine Culture 06/28/23 [facility]09-14-2023 Hospital Discharge instructions Patient Education 06/28/2023 11:39:14 Urinary Tract Infection, Adult, Njtk-dp-Xzvf Urinary Tract Infection, Adult A urinary tract [...] Follow these instructions at home: Medicines Take peqe-aid-ynztymu and prescription medicines only as told by [...] provider. Document Revised: 05/13/2021 Document Reviewed: 05/13/2021 [employer] Patient Education 2022 [employer] 06/28/2023 11:39:14 Urinary Tract Infection, Adult, Bspa-bk-Pdbv Urinary Tract Infection, Adult A urinary tract [...] Follow these instructions at home: Medicines Take dizh-fpk-vqpgxnc and prescription medicines only as told by [...] provider. Document Revised: 05/13/2021 Document Reviewed: 05/13/2021 [employer] Patient Education 2022 [employer] Follow Up Care 06/28/2023 10:22:58 With:Fabiana MARION, Luis Carlos Byrd, [facility] Address: [address] [place], [place] [address]- When: Unknown [facility] 08-31-2023 Evaluation + Plan noteExtracted from: Title:ED Note Author:Jos Ugalde PA-C te:06/14/23 1. Abdominal pain (R10.9: Un specified abdominal pain) Orders: ABO/Rh Automated Diff Basic Metabolic Panel Beta hCG Quantitative CBC w/ Auto Diff eGFR Extra Blue Tube Extra SST Tube Hepatic Function Panel Lipase Level UA With Cult Reflex US 1st Trimester [facility]08-08-2023 Hospital Discharge instructions Patient Education 05/21/2023 23:23:44 Nonspecific Chest Pain, Adult, Udvv-zs-Pvwf Nonspecific Chest Pain Chest pain can be [...] Follow these instructions at home: Medicines Take fnhp-vfd-kinqtun and prescription medicines only as told by [...] ?Eating a heart-healthy diet. A diet and nutritionists (dietitian) can help you to learn healthy [...] provider. Document Revised: 12/15/2021 Document Reviewed: 12/15/2021 [employer] Patient Education 2022 [employer] 05/21/2023 23:23:44 Nausea and Vomiting, Adult, Bjhv-sp-Hgve Nausea and Vomiting, Adult Nausea is feeling [...] fruit juice). ?Low-calorie sports drinks. Eat bland, wvjg-zp-deucaw foods in small amounts as you are able, such as: ?Bananas. ?Applesauce. ?Rice. ?Low-fat (lean) meats. ?P[place]enta. ?Crackers. Avoid drinking fluids that have a lot of sugar or caffeine in them. This includes energy drinks, sports drinks, and soda. Avoid alcohol. Avoid spicy or fatty foods. General instructions Take dnek-dqi-sizsqev and prescription medicines only as told by your doctor. Drink enough fluid to keep your pee (urine) pale yellow. Wash your hands often with soap and water for at least 20 seconds. If you cannot use soap and water, use hand criminal lawyer. Make sure that everyone in your home [...] your doctor about eating and drinking. Take xuks-oqh-vpojytb and prescription medicines only as told by your doctor. Contact your doctor if your symptoms get worse or you have new symptoms. Keep all follow-up visits. This information is not intended to replace advice given to you by your health care provider. Make sure you discuss any questions you have with your health care provider. Document Revised: 04/07/2022 Document Reviewed: 04/07/2022 [employer] Patient Education 2022 [employer] 05/21/2023 23:23:44 Abdominal Pain During , Mggo-uf-Jxde Abdominal Pain During Belly (abdominal) pain is [...] keep your pee (urine) pale yellow. Take itan-ukf-dozgsme and prescription medicines only as told by [...] provider. Document Revised: 06/14/2021 Document Reviewed: 06/14/2021 [employer] Patient Education 2022 [employer] Follow Up Care 05/21/2023 20:38:52 With:Luis Carlos Jung Address: [address], [address] [address] Business (1) When:05/24/2023 Comments:Take the Pepcid once daily until you have completed the course. You can use the Zofran every 6 hours as needed for nausea and vomiting. Please follow-up with your primary care doctor next 2 to 3 days. Please return to the ED for any new or worsening symptoms. [facility]08-07-2023 Evaluation + Plan noteExtracted from: [...] day(s), # 15 cap(s), Refills(s) 0, Pharmacy: [facility], 162.6, cm, 05/21/23 20:50:00 EDT, Height/Length Dosing, 75.3, kg, 05/21/23 20:50:00 EDT, Weight Dosing famotidine, 20 mg = 2 mL, Soln-IV, IV Push, Once, Stop date 05/21/23 21:00:00 EDT, STAT, Start date 05/21/23 21:00:00 EDT, 05/21/23 21:00:00 EDT famotidine, 20 mg = 1 tab(s), Oral, Daily, # 14 tab(s), Refills(s) 0, Pharmacy: [facility], 162.6, cm, 05/21/23 20:50:00 EDT, Height/Length Dosing, 75.3, kg, 05/21/23 20:50:00 EDT, Weight Dosing ondansetron, 4 mg = 2 mL, Injection, IV Push, Once, Stop date 05/21/23 21:00:00 EDT, STAT, Start date 05/21/23 21:00:00 EDT, 05/21/23 21:00:00 EDT ondansetron, 4 mg = 1 tab(s), Oral, q8hr, # 12 tab(s), Refills(s) 0, Pharmacy: [facility], 162.6, cm, 05/21/23 20:50:00 EDT, [...] UA With Cult Reflex US 1st Trimester [facility]07-17-2023 Evaluation + Plan note Diagnostic Tests Pending * PAP [id number] 04/30/23 * Urine Culture 04/30/23 [facility]07-17-2023 Evaluation + Plan note Diagnostic Tests Pending * RPR with Conf Rfx 04/30/23 * HIV Screen 4th Generation wRfx 04/30/23 * Rubella Antibody IgG 04/30/23 * Hepatitis B Surface Antigen 04/30/23 [facility]07-13-2023 Evaluation + Plan noteExtracted from: Title:ED Note Author:Jos Ugalde PA-C te:04/26/23 Abdominal pain (R10.9: Unspe cified abdominal pain) (Z34.90: Encounter for supervision of normal , unspecified, unspecified trimester) Orders: Beta hCG Quantitative Extra Lav Tube Extra SST Tube US 1st Trimester US Transvaginal [facility]07-13-2023 Hospital Discharge instructions Patient Education [...] to keep your urine pale yellow. Take lznl-duu-zzjkltw and prescription medicines only as told by [...] provider. Document Revised: 06/14/2021 Document Reviewed: 06/14/2021 [employer] Patient Education 2022 [employer] Follow Up Care 04/26/2023 08:52:22 With:Luis Carlos Jung Address: [facility] [address], [address] [address] Business (1) When:04/29/2023 10:58:02 [facility]04-19-2023 Evaluation + Plan noteExtracted from: [...] Head eGFR Oxygen Therapy PT & PTT [facility]04-19-2023 Hospital Discharge instructions Patient Education [...] Follow these instructions at home: Medicines Take hefj-nnu-hqqtvbn and prescription medicines only as told by your health care provider. Ask your health care provider if the medicine prescribed to you: ?Requires you to avoid driving or using heavy machinery. ?Can cause constipation. You may need to take these actions to prevent or treat constipation: ?Drink enough fluid to keep your urine pale yellow. ?Take jsot-ijj-afrhbsa or prescription medicines. ?Eat foods that are [...] provider. Document Revised: 01/23/2020 Document Reviewed: 11/13/2019 [employer] Patient Education 2022 [employer] Follow Up Care 01/31/2023 09:42:02 With:THANG MILLAN Address: [address] [place], [place] [id number] [facility] (1) When:02/03/2023 11:57:07 Comments:Call the office of [...] and drug interactions with your pharmacist. Call 1 or go to the nearest Emergency Department if you develop any new or worsening symptoms.Seek immediate medical attention if you develop: worsening headache, nausea, vomiting, confusion, weakness, loss of motion in your arms or legs, loss of control of your urine or stool, difficulty waking from sleep, neck pain, fever, or any new or worsening symptoms. [facility]12-16-2022 [facility]Result Comment: Electronically Signed By: Luis Carlos Jung MD\.br\Date and Time Signed: 09/29/22 09:25 [id number] [facility] Comment on above:Result Comment: Electronically Signed By: Luis Carlos Jung MD\.br\Date and Time Signed: 09/29/22 09:25 [id number] NoteThe following Patient Education Materials have been given to the patient: [facility]12-09-2022 NoteThe following Patient Education Materials have been given to the patient: [facility]12-09-2022 Hospital Discharge instructions Follow Up Care 09/22/2022 15:11:14 With:Luis Carlos Jung Address: [address], [facility] [address] [place] [address]- Business (1) When:09/24/2022 20:30:00 Comments:Appointment has already been scheduledCall for any problems.Call for fever > 100.5 FCall for severe abdominal painCall physician for heavy vaginal bleedingCall physician if symptoms worsenReturn for contractions closer, longer, harderReturn for decreased movementReturn if ruptured membranes or vaginal bleedingCall at 7:30 pm Sunday to confirm induction at 8:30 [facility]12-07-2022 NoteThe following Patient Education Materials have been given to the patient: [facility]12-06-2022 NoteThe following Patient Education Materials have been given to the patient: [facility]12-06-2022 Hospital Discharge instructions Follow Up Care 09/19/2022 01:24:08 With:Luis Carlos Jung Address: [address], [facility] [address] [place] [address]- Business (1) When:09/20/2022 Comments:Appointment has already been scheduledCall Dr if fever>100.5 F, heavy bleedingCall for any problems.Call for severe abdominal painCall physician for heavy vaginal bleedingCall physician if symptoms worsenReturn for contractions closer, longer, harderPlease call if you need to rescheduleReturn for decreased movementReturn if ruptured membranes or vaginal bleeding [facility]12-01-2022 NoteThe following Patient Education Materials have been given to the patient: [facility] Discharge instructions Patient Education 09/14/2022 11:56:10 Sinus Headache, Rnld-uv-Llse Sinus Headache A sinus headache happens when [...] on the bottle or box. Medicines Take nilh-sim-ryyxbhz and prescription medicines only as told by [...] face, forehead, ears, or upper teeth. Take zszq-ufk-lgsdnwq and prescription medicines only as told by your doctor. If told, apply a warm, moist washcloth to your face. This can help to lessen pain. This information is not intended to replace advice given to you by your health care provider. Make sure you discuss any questions you have with your health care provider. Document Released: 01/31/2012 Document Revised: 09/13/2018 Document Reviewed: 07/12/2018 [employer] Patient Education 2020 [employer] Follow Up Care 09/14/2022 09:13:06 With:Luis Carlos Jung Address: [address] [place] [address] [facility] (1) When:09/20/2022 Comments:Return if ruptured membranes or vaginal bleedingReturn for decreased movementReturn for contractions closer, longer, harderCall physician if symptoms worsenCall for severe abdominal painCall for fever > 100.5 F Drink 8-10 glasses of water/day Use SUDAFED, TYLENOL AND BENADRYL as previouslydirected by Dr Fabiana Longoria [facility]11-29-2022 NoteThe following Patient Education Materials have been given to the patient: [facility]22 Hospital Discharge instructions Patient Education 09/12/2022 20:39:28 Third Trimester of , Sqoq-yr-Hrxg Third Trimester of The third trimester is from week 28 through week 40 (months 7 through 9). This trimester is when your unborn baby (fetus) is growing very fast. At the end of the ninth month, the unborn baby is about20 inches in length. It weighs about 6 10 pounds. Follow these instructions at home: Medicines Take tnmi-yyp-sliysnu and prescription medicines only as told by [...] 12/26/2010 Document Revised: 01/22/2020 Document Reviewed: 11/06/2017 [employer] Patient Education 2019 [employer] Follow Up Care 09/12/2022 19:44:10 With:Luis Carlos Jung Address: [address] [address] [facility] (1) When:09/20/2022 Comments:Appointment has already been scheduledCall Dr if fever>100.5 F, heavy bleedingCall for any problems.Call for severe abdominal painCall physician for heavy vaginal bleedingCall physician if symptoms worsenPlease call if you need to rescheduleReturn for contractions closer, longer, harderReturn for decreased movementReturn if ruptured membranes or vaginal bleeding [facility]11-25-2022 NoteThe following Patient Education Materials have been given to the patient: [facility]11-25-2022 Hospital Discharge instructions Follow Up Care 09/08/2022 08:14:23 With:Luis Carlos Jung [facility] [address] [facility] [address] [place] [address] [employer] (1) When:09/11/2022 Comments:Return for contractions closer, longer, harderReturn for decreased movementReturn if rupturedmembranes or vaginal bleeding [facility]11-23-2022 Hospital Discharge instructions Patient Education [...] the coronavirus come from? In September 2019, [place] told the World Health Organization (WHO) of several cases of lung disease (human respiratory illness). These cases were linked to an open seafood and livestock market in the city of [facility]. The link to the [...] and virus naming World Health Organization (WHO): www.who.int/emergencies/diseases/yjvrn-ekfybonydul-9588/technical-g uidance/ylgydt-fnn-uehdsnpboke-disease-(covid-2019)-kmm-gtm-ufqik-vilx-stexbb-lc Who is at risk for complications from [...] relieve his or her symptoms by using qvrf-cpt-nvqowrq medicines that treat sneezing, coughing, and runny [...] water are not available, use alcohol-based hand criminal lawyer. Avoid touching your face, mouth, nose, or [...] Prevention (CDC): www.cdc.gov/coronavirus/2019-ncov/travelers/index.html World Health Organization (WHO): www.who.int/emergencies/diseases/czron-fygkgpipsdf-0019/travel-advice Know the risks and take action to [...] water are not available, use alcohol-based hand criminal lawyer. Cough or sneeze into a tissue, sleeve, [...] in hot, soapy water or use a pedicab driver. Air-dry your dishes. Wash laundry in hot [...] Health Organization (WHO) Information and news updates: www.who.int/emergencies/diseases/jyzqm-bcyxifqkhmv-6996 Coronavirus health topic: www.who.int/health-topics/coronavirus Questions and answers on COVID-19: www.who.int/news-room/q-a-detail/h-e-dyqogtfbduwsn Global tracker: who.[employer] [place] [employer] (AAP) Information for families: www.healthychildren.org/[place]/health-issues/conditions/chest-lungs/Pages /2383-Ommlz-Wfqwkaocdsl.aspx The coronavirus situation is changing rapidly. Check [...] 01/27/2020 Document Revised: 01/27/2020 Document Reviewed: 01/27/2020 [employer] Patient Education 2020 [employer] 09/05/2022 22:13:40 COVID-19 COVID-19 COVID-19 is a [...] to fight infection (immunocompromised). Live in a detention or long-term care facility. Have a long-term [...] managed at home with rest, fluids, and dhtm-jgt-yzwrrfc medicines. Treatment for a serious infection usually [...] are safe for you. General instructions Take pscv-ada-pnhnkts and prescription medicines only as told by [...] water are not available, usean alcohol-based hand criminal lawyer. ?Avoid touching your mouth, face, eyes, or [...] water are not available, use alcohol-based hand criminal lawyer. Stay away from other members of your [...] have a weak immunity, live in a detention, or have chronic disease. There is no [...] 11/06/2019 Document Revised: 02/26/2020 Document Reviewed: 11/06/2019 [employer] Patient Education 2019 [employer] Follow Up Care 09/05/2022 20:08:29 With:Luis Carlos Jung Address: [facility] [address] [place] [address] [facility] [place] [address] Business (1) When:09/08/2022 21:42:10 Comments:Use the albuterol inhaler 2 puffs every 4 hours for the next 2 to 3 days, you can use the Zofran every 6 hours as needed for nausea and vomiting. Please follow-up with your primary care doctor in thenext 2 to 3 days. Please return to the ED for any new or worsening symptoms. With:THANG MILLAN Address: [address] [place] [address] Business (1) When:09/08/2022 21:42:06 [facility]11-22-2022 Evaluation + Plan noteExtracted from: [...] Nausea/Vomiting, # 12 tab(s), Refills(s) 0, Pharmacy: [facility], 163, cm, 09/05/22 20:14:00 EST, [...] Therapy PT & PTT Rapid COVID Antigen ([facility]) Saline Lock Insert Troponin 0 Hr. XR Chest Single View Future Appointments Appointment Date:09/06/2022 07:00:00 AM Scheduled [facility] Type:Outpatient COVID Testing [facility]11-21-2022 Evaluation + Plan note Diagnostic Tests Pending * Group B Streptococcus colonization by PCR 09/04/22 [facility]11-17-2022 NoteThe following Patient Education Materials have been given to the patient: [facility] Hospital Discharge instructions Patient Education 08/31/2022 00:56:47 Third Trimester of , Gunw-tx-Meay Third Trimester of The third trimester is from week 28 through week 40 (months 7 through 9). This trimester is when your unborn baby (fetus) is growing very fast. At the end of the ninth month, the unborn baby is about20 inches in length. It weighs about 6 10 pounds. Follow these instructions at home: Medicines Take lfkp-yoi-wlqgtqm and prescription medicines only as told by [...] 12/26/2010 Document Revised: 01/22/2020 Document Reviewed: 11/06/2017 [employer] Patient Education 2020 [employer] Follow Up Care 08/30/2022 21:31:53 With:Luis Carlos Jung Address: [facility] [address], [address] [place] [address]- Business (1) When:09/04/2022 Comments:Call for any problems.Call for severe abdominal painCall physician for heavy vaginal bleedingReturnfor contractions closer, longer, harderReturn for decreased movementReturn if ruptured membranes or vaginal bleeding [facility]11-08-2022 Hospital Discharge instructions Follow Up Care 08/22/2022 14:58:59 With:Dr. 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 [facility]11-04-2022 Evaluation + Plan note Diagnostic Tests Pending * Urine Culture 08/18/22 [facility]11-04-2022 Hospital Discharge instructions Follow Up Care 08/18/2022 03:47:49 With:Luis Carlos Jung [facility] [facility] [facility] [address] [facility] [address] [place] [address]- Business (1) When:08/21/2022 08:45:00 Comments:Appointment has already been scheduled, please keep scheduled apptCall for any problems.Call physician if symptoms worsen [facility]10-30-2022 Hospital Discharge instructions Patient Education [...] 10/31/2007 Document Revised: 10/21/2019 Document Reviewed: 11/09/2016 Elsevier Patient Education 2020 [employer] 08/13/2022 19:55:11 Monitoring Overview Monitoring Overview [...] 09/21/2003 Document Revised: 06/25/2018 Document Reviewed: 04/30/2017 [employer] Patient Education 2020 [employer] Follow Up Care 08/13/2022 17:29:42 With:Luis Carlos Jung Address: [address] [address] [facility] (1) When:1 to 2 days Comments:Call for any problems.Return for contractions closer, longer, harderReturn for decreased movementReturn if ruptured membranes or vaginal bleeding [facility]10-13-2022 Hospital Discharge instructions Follow Up Care 07/27/2022 01:12:54 With:Dr. Jung [phone] Address:Unknown When:09/24/2022 20:30:00 Comments:Call for any problems.Return if ruptured membranes or vaginal bleedingReturn for decreased movementcontractions every 5 minutes lasting 45 seconds for an hourCall Sunday night at 7:30 PM to assure bed availability for induction [facility]10-12-2022 Hospital Discharge instructions Patient Education [...] Follow these instructions at home: Medicines Take rfte-dil-ybwokmm and prescription medicines only as told by [...] as fried or sweet foods. ?Take an ncxv-ydt-szugwhu or prescription medicine for constipation. If you [...] 12/28/2009 Document Revised: 05/28/2019 Document Reviewed: 11/11/2018 [employer] Patient Education [employer]. Follow Up Care 07/26/2022 07:56:25 With:Luis Carlos Jung Address: [address] [id number] Business (1) When:08/07/2022 07:45:00 [facility]10-03-2022 Evaluation + Plan noteExtracted from: Title:ED Note Author:Mathew NICHOLS, [place] te:07/17/22 UTI (urinary tract infection ) (N39.0: Urinary tract infection, site not specified) Orders: cephalexin, 500 mg = 1 cap(s), Oral, q12hr, X 5 day(s), # 10 cap(s), Refills(s) 0, Pharmacy: [facility], 162.5, cm, 07/17/22 9:09:00 EDT, Height/Length Dosing, 80, kg, 07/17/22 9:09:00 EDT, Weight Dosing Patient Specific Meds, Each, Misc, Once, Stop date 07/17/22 9:10:34 EDT, Physician Stop, 07/17/22 9:10:34 EDT Influenza A&B Ag Rapid COVID Antigen ([facility]) UA With Cult Reflex [facility]10-03-2022 Hospital Discharge instructions Patient Education [...] 01/26/2012 Document Revised: 01/23/2020 Document Reviewed: 09/04/2019 [employer] Patient Education 2020 [employer] 07/17/2022 09:55:44 Urinary Tract Infection, Adult Urinary [...] Treatment for this condition includes: Antibiotic medicine. Yscr-kuh-ajprnxo medicines to treat discomfort. Drinking enough water [...] Follow these instructions at home: Medicines Take ecpz-uau-orvkfor and prescription medicines only as told by [...] 07/11/2006 Document Revised: 09/18/2019 Document Reviewed: 04/10/2019 [employer] Patient Education 2020 [employer] Follow Up Care 07/17/2022 09:04:38 With:Luis Carlos Jung Address: [address], [address] [facility] [place] [address] Business (1) When:07/20/2022 09:46:49 With:THANG MILLAN Address: [address] [facility] [place] [address] Business (1) When:07/20/2022 09:46:41 Comments:Follow-up with your primary care provider in 3 to 5 days. If symptoms worsen, do not improve, or new symptoms arise please report back to emergency department for further evaluation. [facility]09-14-2022 Evaluation + Plan note Diagnostic Tests Pending * RPR with Conf Rfx 06/28/22 [facility]09-12-2022 Hospital Discharge instructions Patient Education [...] 09/21/2003 Document Revised: 06/25/2018 Document Reviewed: 04/30/2017 [employer] Patient Education 2020 [employer] 06/26/2022 21:35:59 Form - Movement Counts Movement [...] 10/31/2007 Document Revised: 10/21/2019 Document Reviewed: 11/09/2016 [employer] Patient Education 2020 [employer] Follow Up Care 06/26/2022 20:41:33 With:Luis Carlos Jung Address: [address], [address] [address]- Business (1) When:07/03/2022 07:45:00 Comments:Call for any problems.Please call if you need to rescheduleReturn for decreased movement [facility]09-05-2022 Hospital Discharge instructions Follow Up Care 06/18/2022 23:33:38 With:Luis Carlos Jung Address: [address] [address] Business (1) When:5 to 7 days Comments:Appointment has already been scheduledCall for any problems.Call for fever > 100.5 FCall for severe abdominal painCall physician for heavy vaginal bleedingPlease call if you need to rescheduleReturn for contractions closer, longer, harderReturn for decreased movementReturn if ruptured membranes or vaginal bleeding [facility]07-18-2022 Hospital Discharge instructions Follow Up Care 05/01/2022 17:08:54 With:Luis Carlos Jung Address: [address], [address] [address]- Business (1) When:05/09/2022 Comments:Return if ruptured membranes or vaginal bleedingReturn for contractions closer, longer, harderCall physician if symptoms worsenCall physician for heavy vaginal bleedingCall for severe abdominal painCall for fever > 100.5 FCall for any problems. drink more fluids including gatorade, take milk of magnesia twice /day until yo u have bowel movements, benefiber daily [facility]06-19-2022 Evaluation + Plan note Diagnostic Tests Pending * Urine Culture 04/02/22 [facility]06-19-2022 Hospital Discharge instructions Patient Education 04/02/2022 10:22:48 Second Trimester of , Mqin-vj-Dtga Second Trimester of The second trimester is [...] Follow these instructions at home: Medicines Take omut-npw-heqpjul and prescription medicines only as told by [...] 12/26/2010 Document Revised: 01/23/2020 Document Reviewed: 11/06/2017 [employer] Patient Education 2020 [employer] 04/02/2022 10:22:48 Vaginal Bleeding During , Second [...] says that this is safe. Medicines Take cytc-dkx-leqxoai and prescription medicines only as told by [...] 07/11/2006 Document Revised: 01/20/2020 Document Reviewed: 01/03/2018 [employer] Patient Education 2020 [employer] Follow Up Care 04/02/2022 06:00:26 With:Dr. Jung [phone] Address:Unknown When:2 to 3 days Comments:Call for any problems.Call physician if symptoms worsen [facility]06-09-2022 Hospital Discharge instructions Patient Education 03/23/2022 20:39:21 Second Trimester of , Xqpo-na-Ruox Second Trimester of The second trimester is [...] Follow these instructions at home: Medicines Take tqzy-zwd-gajkxum and prescription medicines only as told by [...] 12/26/2010 Document Revised: 01/23/2020 Document Reviewed: 11/06/2017 [employer] Patient Education 2020 [employer] 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 Avoid [...] grounds. You are around people who have Montenegrin measles, fifth disease, or chickenpox. You have [...] 03/19/2009 Document Revised: 01/22/2020 Document Reviewed: 10/09/2017 [employer] 03/23/2022 20:39:21 Abdominal Pain During , Tndc-ae-Dpbu Abdominal Pain During Belly (abdominal) pain is [...] keep your pee (urine) pale yellow. Take wsyv-bqd-rldtfij and prescription medicines only as told by [...] 09/19/2010 Document Revised: 01/19/2020 Document Reviewed: 01/03/2018 [employer] Patient Education [employer]. Follow Up Care 03/23/2022 19:35:57 With:Luis Carlos Jung Address: [facility] [address], [facility] [address] [place] [address] [facility] (1) When:03/27/2022 10:00:00 Comments:Call for any problems. Call [facility] first, ask to speak directly to Dr. Jung before heading to hospital unless an emergency. Call for severe abdominal pain or worsening pain.Return if vaginal bleedingor ruptured membranes.Wear belly band as much as possible, especially as your belly grows in . [facility]05-04-2022 Evaluation + Plan note Diagnostic Tests Pending * RPR with Conf Rfx 02/15/22 * HIV Screen 4th Generation wRfx 02/15/22 * Rubella Antibody IgG 02/15/22 * Hepatitis B Surface Antigen 02/15/22 * Urine Culture 02/15/22 [facility]06-18-2021 NoteHNO ID: [id number] Author: Bert Negrete, DO Service: ? Author Type: Fellow Type: Progress Notes Filed: 04/01/2021 9:15 AM Note Text: [facility] [address] [place], [place] [address] Martha Webb (Kelsey) [address] [place] [facility] [address] PCP: Thang Millan NP Accompanied by: Mother [...] bed and continue this dose - rizatriptan (MAXALT-SALON ASSISTANT) 10 mg disintegrating tablet Take 1 tablet [...] Transformed Score (ran (more content not included)... [facility]06-10-2021 NoteHNO ID: [id number] Author: Karen Vinson RT(R) Service: Nuclear Medicine Author Type: Revenue Research Analyst Type: Progress Notes Filed: 03/24/2021 9:39 AM [...] 0740 PATIENT DISCHARGED TO: Ambulatory patient, left [place] department area. A Diagnostic radioactive procedure has taken place, with no further precautions necessary other than routine body substance precautions. More information regarding radiation safety can be found using this link: [email or web address] SIGNATURE: RT Oliva(R) PATIENT NAME: Susan Bro DATE: March 24, 2021 TIME: 9:38 AM PAGER/CONTACT #:[facility]05-27-2021 NoteHNO ID: [id number] Author: Martha Webb MD Service: ? Author Type: Physician Type: Progress Notes Filed: 03/10/2021 12:03 PM Note Text: This note was created using [employer]. 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 When you make an appointment with [facility], it's the start of a long-lasting partnership that's committed to your health. We provide the very best prevention, wellness and illness care, and give you access to the advanced medical services and expert treatment available at [facility]. Please note that the provider listed below is accepting patients in your area. [place]: [address] [id number] MD Debby Lala MD Christina Spring, CNP For the most up-to-date information on a care provider in your community, use the Find a Doctor tool on [employer] [facility] Primary Care * Attachments The following attachments cannot be sent through Care Everywhere. * Vertigo (Cape Verdean) * Arik Maneuver: Vertigo: Exercises (C[place] Verdean) documented in this encounter* Instructions* Bakari Valente [...] be sent through Care Everywhere. * Bruises ([place] Ver[place]an) * Contusion ([place] Verdean) documented in this encounter Assessments Diagnosis Vertigo- Primary Dizziness and giddiness Diagnosis Contusion of right knee, initial encounter Contusion of multiple sites of right shoulder and upper arm, initial encounter Additional Source Comments INFORMATION SOURCE (unrecogn ized section and content) DATE CREATED AUTHOR 04/09/2018 [facility] DATE CREATED AUTHOR AUTHOR'S ORGANIZ ATION 08/10/2020 [facility] DATE CREATED AUTHOR AUTHOR'S ORGANIZ ATION 09/07/2020 [facility] DATE CREATED AUTHOR AUTHOR'S ORGANIZ ATION 10/20/2020 [facility] DATE CREATED AUTHOR AUTHOR'S ORGANIZ ATION 03/18/2021 [facility] DATE CREATED AUTHOR AUTHOR'S ORGANIZ ATION 11/15/2021 [facility] DATE CREATED AUTHOR AUTHOR'S ORGANIZ ATION 08/25/2023 [facility] DATE CREATED AUTHOR AUTHOR'S ORGANIZ ATION 11/01/2023 [facility] Reason for Visit (unrecogniz ed section and content) Reason Comments Dizziness Reason Comments Knee Pain right knee pain, 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 denies hitting head or any LOC Shoulder Pain rt shoulder, fell ov er dust guzman onto her right side. Susan Griffiths PA-C - 10/14/2020 10:44 AM Amena Cantrell RN - 10/14/2020 10:32 AM EST ED Notes (unrecognized secti on and content) [facility] ED Note: NAME: Susan Bro 24 y.o. CSN: [id number] PCP: Physician No History: Chief Complaint: Dizziness [...] file Gets together: Not on file Attends mormon service: Not on file Active member of [...] % 5' 4 90.7 kg (200 lb) 12/31/20 1008 100 % Physical Exam Vitals signs [...] does have reproducible vertigo with position changes. Aqvxve-fo-cgsl maneuvers are intact without dysmetria. There is negative Romberg sign. There was no ataxia on ambulation. Psychiatric: Mood and Affect: Mood normal. Behavior: Behavior normal. Thought Content: Thought content normal. Laboratory & Radiological Imaging (if done): Labs Reviewed URINALYSIS - Abnormal; Notable for the following components: Result Value Clarity, Urine Cloudy (*) Specific Buchanan 1.028 (*) pH, Urine 8.0 (*) Protein, [...] at the following links: For Healthcare Providers: https://www.fda.gov/media/281480/download For Patients: https://www.fda.gov/media/169455/download HCG URINE, QUALITATIVE - Normal CBC AND DIFFERENTIAL Narrative: The following orders were created for panel order CBC w/ Diff. Procedure Abnormality Status --------- ------ CBC Auto Differential[[id number]] Abnormal Final result Please view results for these tests on the individual orders. HCG URINE, QUALITATIVE URINALYSIS CT Head Or Brain Without Contrast Final Result 1. No acute intracranial hemorrhage, focal edema or mass effect. Workstation ID: [id number] EKG: Normal sinus rhythm with sinus arrhythmia RATE: 74 AXIS: Normal axis INTERVALS: DE interval of 178 ms, QRS duration of [...] Antivert. She is referred to follow-up with [facility] or [place] that she does not currently have a [...] needed for dizziness . Susan Griffiths Physicians Cryptologic Supervisor [facility] Emergency Department Susan Griffiths PA-C 10/14/20 1203 Special isolation precautions are in place with signage outside this patient's room. This lawn caretaker performs hand hygiene and enters the patient [...] or prosecute any alcohol or drug abuse patient.[facility] Care Team (unrecognized sect ion and content) Personnel Name: THANG MILLAN CNP Address: [address] [place] [address] Personnel Name: THANG MILLAN CNP Address: [address] [place] [address] Personnel Name: THANG MILLAN CNP Address: [address] [place] [address] Personnel Name: THANG MILLAN CNP Address: [address] [place] [address] Personnel Name: THANG MILLAN CNP Address: [address] [place] [address] Personnel Name: THANG MILLAN CNP Address: [address] [place] [address] Personnel Name: THANG MILLAN CNP Address: [address] [place] [address] [place] Personnel Name: THANG MILLAN CNP Address: [address] [place] [address]- [place] Personnel Name: THANG MILLAN CNP Address: Address: [address] [place] [address]- [place] Personnel Name: THANG MILLAN CNP Address: Address: [address] [place] [address]- [place] Personnel Name: THANG MILLAN CNP Address: Address: [address] [place] [address]- [place] Personnel Name: THANG MILLAN CNP Address: Address: [address] [place] [address]- [place] Personnel Name: THANG MILLAN CNP Address: Address: [address] [place] [address]- [place] Personnel Name: THANG MILLAN CNP Address: Address: [address] [place] [address]- [place] Personnel Name: THANG MILLAN CNP Address: Address: [address] [place] [address]- [place] Personnel Name: THANG MILLAN CNP Address: Address: [address] [place] [address]- [place] Personnel Name: THANG MILLAN CNP Address: Address: [address] [place] [address]- [place] Personnel Name: THANG MILLAN CNP Address: Address: [address] [place] [address]- [place] Personnel Name: THANG MILLAN CNP Address: Address: [address] [place] [address]- [place] Personnel Name: THANG MILLAN CNP Address: Address: [address] [place] [address]- [place] Personnel Name: THANG MILLAN CNP Address: Address: [address] [place] [address]- [place] Personnel Name: THANG MILLAN CNP Address: Address: [address] [place] [address]- [place] Personnel Name: THANG MILLAN CNP Address: Address: [address] [place] [address]- [place] Personnel Name: THANG MILLAN CNP Address: Address: [address] [place] [address]- [place] Personnel Name: THANG MILLAN CNP Address: Address: [address] [place] [address]- [place] Personnel Name: THANG MILLAN CNP Address: Address: [address] [place] [address] [place] Personnel Name: Luis Carlos Jung MD Address: Address: [address] [place] [address], [address] Personnel Name: Luis Carlos Jung MD Address: Address: [facility] [address], [address] Personnel Name: Luis Carlos Jung MD Address: Address: [facility] [address], [address] Personnel Name: Luis Carlos Jung MD Address: Address: [facility] [address], [address] Personnel Name: Luis Carlos Jung MD Address: Address: [facility] [address], [address] Personnel Name: Rashaun PURVIS DO Address: Address: [address] , [facility] [address] Personnel Name: NONE, XXXX Address: Address: [facility] Personnel Name: LLC, GENERIC Personnel Name: [...] BE BASED ON THE PRIMARY CLINICAL RECORDS. [facility]. provides no warranty or guarantee of the accuracy or completeness of information in this document.
[2023-11-02 15:26] VITALS: BP 110/56; PULSE 89
== END 2023-11-02 15:40 | disposition home or self-care (01) ==
LOC: FBCO 07:15 → FBC 14:57
PROVIDERS: Visit Provider Obstetrics & Gynecology
DX: O36.63X0 Maternal care for excessive fetal growth, third trimester, not applicable or unspecified (principal)
CPT/HCPCS: 59025

== ENCOUNTER 2023-11-06 07:25 | Outpatient (OUT) | payer OTHER, SELFPAY ==
--- OUTSIDE RECORDS SUMMARY | 2023-11-06 07:29 | XMS_ITS | CCD ---
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 Name Role Phone NKECHI TORRES Unavailable Unavaila BAKARI Liriano Attending Unavailable THANG MILLAN Primary Care Unavailable No, Physician Primary Care Provider Unavailerum BRODY, PHYSICIAN Primary Care Unavailable REGINE CHOW Admitting Unavailable REGINE CHOW Attending Unavailable Thang Millan Primary Care Provider Unavailable Primary Care Provider UnavailTHANG Mauro Primary Care Physician Luis Carlos Jung Primary Care Physician [phone] Rashaun PURVIS Primary Care Physician NONE, XXXX Primary Care Physician Unavailab samson MAHONEY, GENERIC Primary Care Physician Unavailab DO Gopi Christensen Attending Unavailable Kristian Guilelrmo Attending Unavailable Luis Carlos Jung Admitting Unavailable [...] Unavailable Spasic, Roverto Maria. Attending Unavailabl e Spasic, Roverto Maria. Admitting Unavailabl e Fabiana, Luis Carlos Byrd [...] Unavailable Fabiana, Luis Carlos Byrd Attending Unavailable Hajdari, Astrit H Attending Unavailable ANGELA, DODIE Attending Unavailable YANIV, RASHAUN Attending Unavailable YANIV, RASHAUN Attending Unavailable ANGELA, DODIE Attending Unavailable Allergies Allergy Classification Reported Allergen(s) Allergy Type Date of Onset Reaction(s) Facility (20 sources) amoxicillin; Translations: [AMOXICILLIN] Drug Allergy 7 [facility] Repository (20 sources) penicillin; Translations: [PENICILLIN] Drug Allergy 7 [facility] Repository (3 sources) Penicillins; Translations: [PENICILLINS] Propensity to adverse reactions to drug 0 [facility], [place] Medications Current Medications Medication Drug Class(es) Dates [...] day(s), # 15 cap(s), Refills(s) 0, Pharmacy: [facility], 162.6, cm, 05/21/23 20:50:00 EDT, Height/Length Dosing, 75.3, kg, 05/21/23 20:50:00 EDT, Weight Dosing Start Date: 05/21/23 Stop Date: 05/26/23 Status: Ordered Start: 08-18-2022 End: 08-25-2022 take 1 capsule by mouth four times daily Keflex 500 mg Cap 500 mg = 1 cap(s), Oral, QID, X 7 day(s), # 28 cap(s), Refills(s) 0, Pharmacy: [facility] 1986, 162.5, cm, 08/18/22 4:15:00 EDT, Height/Length Dosing, 80, kg, 08/18/22 4:15:00 EDT, Weight Dosing Start Date: 08/18/22 Stop Date: 08/25/22 Status: Ordered Start: 07-17-2022 End: 07-22-2022 take 1 capsule by mouth every twelve hours Keflex 500 mg Cap 500 mg = 1 cap(s), Oral, q12hr, X 5 day(s), # 10 cap(s), Refills(s) 0, Pharmacy: [facility], 162.5, cm, 07/17/22 9:09:00 EDT, Height/Length Dosing, 80, kg, 07/17/22 9:09:00 EDT, Weight Dosing Start Date: 07/17/22 Stop Date: 07/22/22 Status: Ordered Start: 04-02-2022 End: 04-09-2022 take 1 capsule by mouth four times daily Keflex 500 mg Cap 500 mg = 1 cap(s), Oral, QID, X 7 day(s), # 28 cap(s), Refills(s) 0, Pharmacy: [facility], 160, cm, 04/02/22 [...] Daily, # 14 tab(s), Refills(s) 0, Pharmacy: [facility], 162.6, cm, 05/21/23 20:50:00 EDT, Height/Length Dosing, 75.3, kg, 05/21/23 20:50:00 EDT, Weight Dosing Start Date: 05/21/23 Status: Ordered ibuprofen 600 mg oral tablet (11 sources) Nonsteroidal Anti-inflammatory Drug Start: 09-27-2022 take 1 tablet by mouth every six hours ibuprofen 600 mg Tab 600 mg = 1 tab(s), Oral, q6hr, # 15 tab(s), Refills(s) 0, Pharmacy: [facility], 162.5, cm, 09/24/22 21:51:00 EST, Height/Length Dosing, 78.6, kg, 09/24/22 21:51:00 EST, Weight Dosing Start Date: 09/27/22 Status: Ordered levothyroxine sodium 0.125 mg oral tablet (20 sources) l-Thyroxine Start: 11-04-2023 take 1 tablet by mouth once daily levothyroxine 125 mcg (0.125 mg) Tab 125 mcg = 1 tab(s), Oral, Daily, Refills(s) 0 Start Date: 11/04/23 Status: Ordered Start: 03-03-2022 take 1 tablet [...] dizziness, # 15 tab(s), Refills(s) 0, Pharmacy: [facility] [address], 163, cm, 11/30/21 7:18:00 EST, [...] Nausea/Vomiting, # 12 tab(s), Refills(s) 0, Pharmacy: [facility], 163, cm, 09/05/22 [...] day(s), # 6 tab(s), Refills(s) 0, Pharmacy: [facility], 163, cm, 06/28/23 10:39:00 EDT, [...] q8hr, # 12 tab(s), Refills(s) 0, Pharmacy: [facility], 162.6, cm, 05/21/23 20:50:00 EDT, [...] 07-06-2021 Chronic Other and delivery including normal (10 sources) Normal ; Translations: [Encounter for supervision [...] Test Name Value Interpretation Reference Range Facility URINALYSISOrdered By: An Mccarty on 11-04-2023 Bacteria LM Ql (Urine sed) Trace /HPF Normal Trace/HPF [facility] UA Auto SS Bilirubin Ql (U) Negative (11/04/23 8:05 AM) Normal Negative [facility] UA Auto SS Clarity (U) SL CLOUDY Invalid Interpretation Code [facility] UA Auto SS Color (U) Yellow (11/04/23 8:05 AM) Normal Yellow [facility] UA Auto SS Epithelial cells.squamous LM.HPF (Urine sed) [#/Area] 5-8 /HPF Normal 0-2/HPF [facility] UA Auto SS Glucose Test strip (U) [Mass/Vol] Negative (11/04/23 8:05 AM) Normal Negative [facility] UA Auto SS Hemoglobin Ql (U) Negative (11/04/23 8:05 AM) Normal Negative [facility] UA Auto SS Ketones (U) [Mass/Vol] Negative (11/04/23 8:05 AM) Normal Negative [facility] UA Auto SS [place].plasma/[place] .RBC (Bld) [Mass ratio] 0-3 /HPF Normal 0-3/HPF [facility] UA Auto SS Mucus Ql (Urine sed) Trace (11/04/23 8:05 AM) Normal [facility] UA Auto SS Nitrite Ql (U) Negative (11/04/23 8:05 AM) Normal Negative [facility] UA Auto SS pH (U) 7.0 *NA* (11/04/23 8:05 AM) Invalid Interpretation Code 5.0 - 9.0 [facility] UA Auto SS Protein (U) [Mass/Vol] Negative (11/04/23 8:05 AM) Normal Negative [facility] UA Auto SS Specific gravity (U) [Rel density] 1.015 *NA* (11/04/23 8:05 AM) Invalid Interpretation Code 1.005 - 1.030 [facility] UA Auto SS UA Spec Desc Clean Catch (11/04/23 8:05 AM) Normal [facility] UA Auto SS Urobilinogen Qn (U) 0.6997150 {Rola'U}/dL Normal 0.0 - 1.0 EU/dL [facility] UA Auto SS WBC Auto Ql (U) 1+ *ABN* (11/04/23 8:05 AM) Invalid Interpretation Code Negative [facility] UA Auto SS WBC LM.HPF (Urine sed) [#/Area] 6-15 /HPF Invalid Interpretation Code 0-5/HPF [facility] UA Auto SS T3 Totalon 08-24-2023 T3 [Mass/Vol] 146 ng/dL Invalid Interpretation Code 71-180 [facility] Comment on above: Result Comment: Perf ormed at: [facility] [address] [id number] PhD Caroline [place] Performed By: #### 2 986192, 41300877, 3880445, 31780015, 6304933, 9060919, 76938180 ####[facility] [address] [place] [address] Auto Diffon 08-23-2023 Basophils/100 WBC (Bld) 0.9 % Normal 0.0-2.0 [facility] Comment on above: Order Comment: Order Added by Discern Expert. Performed By: #### 2 180017, 89076075, 8942500, 80061014, 9241680, 9622348, 46156626 ####[facility] [address] [place] [address] Basophils/Leukocytes Auto (Bld) [Pure # fraction] 0.1 E9/L Normal 0.0-0.2 [facility] Comment on above: Order Comment: Order Added by Discern Expert. Performed By: #### 2 246397, 03056502, 7516047, 30729124, 4961097, 8877927, 85044761 ####[address] [place] [address] Eosinophils/100 WBC (Bld) 1.3 % Normal 0.0-8.0 [facility] Comment on above: Order Comment: Order Added by Discern Expert. Performed By: #### 2 697956, 75483509, 2262506, 61838919, 7801603, 4198699, 90612021 ####[facility] [address] [place] [address] Eosinophils/Leukocytes Auto (Bld) [Pure # fraction] 0.1 E9/L Normal 0.0-0.5 [facility] Comment on above: Order Comment: Order Added by Gisselle Expert. Performed By: #### 2 782829, 21556525, 6922684, 25662818, 7589179, 4699211, 54020283 ####[address] [address] Lymphocytes/100 WBC (Bld) 17.7 % Normal 14.0-50.0 [facility] Comment on above: Order Comment: Order Added by Gisselle Expert. Performed By: #### 2 709016, 44807390, 4473889, 65836277, 9182917, 8238973, 62271834 ####[address] [place] [address] Lymphocytes/Leukocytes Auto (Bld) [Pure # fraction] 1.4 E9/L Normal 1.0-4.0 [facility] Comment on above: Order Comment: Order Added by Gisselle Expert. Performed By: #### 2 682702, 32120435, 4749798, 48409792, 7537459, 8895017, 91551960 ####[address] [place] [address] Monocytes/100 WBC (Bld) 5.1 % Normal 4.0-14.0 [facility] Comment on above: Order Comment: Order Added by Discern Expert. Performed By: #### 2 090247, 34200003, 7322597, 59680877, 4381761, 6765417, 82639334 ####[address] [place] [address] Monocytes/Leukocytes Auto (Bld) [Pure # fraction] 0.4 E9/L Normal 0.2-1.0 [facility] Comment on above: Order Comment: Order Added by Discern Expert. Performed By: #### 2 712711, 59808449, 4430605, 45794476, 2981591, 5129581, 73587169 ####[address] [place] [address] Neutrophils/100 WBC (Bld) 75.0 % Normal 36.0-75.0 [facility] Comment on above: Order Comment: Order Added by Discern Expert. Performed By: #### 2 880103, 06062576, 9661424, 98986017, 8494036, 0387639, 34769246 ####[address] [place] [address] Neutrophils/Leukocytes Auto (Bld) [Pure # fraction] 5.8 E9/L Normal 2.0-7.5 [facility] Comment on above: Order Comment: Order Added by Discern Expert. Performed By: #### 2 036284, 85703043, 2770525, 38991756, 9423355, 0661707, 55122901 ####[address] [place] [address] CBC w/ Auto Diffon 3 Erythrocyte distribution width (RBC) [Ratio] 14.5 % High 10.9-14.2 [facility] Comment on above: Performed By: #### 2 527408, 49291066, 4406830, 70792811, 5105526, 4473584, 47051509 ####[address] [place] [address] Hematocrit (Bld) [Volume fraction] 36.4 % Normal 34.0-46.0 [facility] Comment on above: Performed By: #### 2 164132, 39141904, 7304751, 19577344, 8815848, 0236208, 74382389 ####[facility] [address] [place] [address] Hemoglobin (Bld) [Mass/Vol] 12.1 g/dL Normal 12.0-16.0 [facility] Comment on above: Performed By: #### 2 571640, 95550236, 1236228, 88726769, 7841606, 1559625, 59564021 ####[facility] [address] [place] [address] MCH (RBC) [Entitic mass] 30.2 pg Normal 27.0-34.0 [facility] Comment on above: Performed By: #### 2 962893, 75065537, 8955868, 34979093, 3445828, 5520610, 75348965 ####[address] [address] MCHC (RBC) [Mass/Vol] 33.3 g/dL Normal 31.4-36.0 [facility] Comment on above: Performed By: #### 2 800745, 83933373, 1568397, 05373926, 2500004, 0445747, 75963474 ####[address] [place] [address] MCV (RBC) [Entitic vol] 90.8 fL Normal 80.0-100.0 [facility] Comment on above: Performed By: #### 2 165927, 90942884, 4030797, 74801359, 3223393, 7877578, 12347107 ####[facility] [address] [place] [address] Platelet mean volume (Bld) [Entitic vol] 9.7 fL Normal 6.4-10.8 [facility] Comment on above: Performed By: #### 2 070777, 74490203, 9449911, 28037929, 5617314, 2597091, 17182643 ####[facility] [address] [place] [address] Platelets (Bld) [#/Vol] 270.0 E9/L Normal 150.0-500.0 [facility] Comment on above: Performed By: #### 2 914888, 81667139, 1952680, 13932163, 6342439, 2545218, 16242977 ####[facility] [address] [place] [address] RBC (Bld) [#/Vol] 4.0 E12/L Low 4.3-5.9 [facility] Comment on above: Performed By: #### 2 169918, 45120622, 8985035, 51331785, 1748580, 6756707, 58103269 ####[facility] [address] [place] [address] WBC corrected for nucl RBC Auto (Bld) [#/Vol] 7.7 E9/L Normal 4.0-11.0 [facility] Comment on above: Performed By: #### 2 404801, 35787342, 8243919, 94345485, 9241784, 2207332, 19208364 ####[facility] [address] [place] [address] CHEMISTRYOrdered By: SYSTEM SYSTEM on 08-23-2023 Albumin [...] - 31 mmol/L [facility] Creatinine [Mass/Vol] 0.6 mg/dL Normal 0.5 - 1.3 mg/dL [facility] GFR/1.73 sq M.predicted among non-blacks MDRD (S/P/Bld) [Vol rate/Area] 125 mL/min/1.73 m2 Normal >=59mL/min/ 1.73 m2 [facility] Chem S Comment on above: Interpretive Data: [...] 6.6 g/dL Normal 6.0 - 7.8 gm/dL [facility] Sodium [Moles/Vol] 138 mmol/L Normal 135 - 145 mmol/L [facility] Remisol T4 [Mass/Vol] 11.8 ug/dL High 4.6 - 9.1 mcg/dL [facility] Remisol Triglyceride [Mass/Vol] 164 mg/dL High <=149mg/dL [facility] TSH Qn 3.61 m[IU]/L Normal 0.34 - 5.60 mcIU/mL [facility] Urea nitrogen [Mass/Vol] 7 mg/dL Normal 5 - 21 mg/dL [facility] Remisol Urea nitrogen/Creatinine [Mass ratio] 12 mg/mg Normal 10 - 20 [facility] Remisol CMPon 08-23-2023 Albumin [Mass/Vol] 2.8 g/dL Low 3.3-5.0 [facility] Comment on above: Performed By: #### 2 841737, 99126905, 9777954, 62189843, 6594515, 1212010, 36599779 ####[facility] [address] [place] [address] Albumin/Globulin (S) [Mass conc ratio] 0.7 Low 1.1-2.2 [facility] Comment on above: Performed By: #### 2 792006, 65996812, 9322929, 24304406, 5008683, 3166827, 03767345 ####[facility] [address] [place] [address] ALP [Catalytic activity/Vol] 49 Int._Unit/L Normal 21-98 [facility] Comment on above: Performed By: #### 2 252559, 15626294, 9101857, 97545863, 5098286, 2093804, 92582889 ####[facility] [address] [place] [address] ALT No additional P-5'-P [Catalytic activity/Vol] 15 Int._Unit/L Normal 6-46 [facility] Comment on above: Performed By: #### 2 705322, 72350252, 6571893, 36692299, 1866414, 5330705, 72274614 ####[facility] [address] [place] [address] Anion gap [Moles/Vol] 12 mmol/L Normal 6-16 [facility] Comment on above: Performed By: #### 2 407580, 87506122, 3582754, 86067348, 5538577, 5992526, 09960739 ####[facility] [address] [place] [address] AST [Catalytic activity/Vol] 17 Int._Unit/L Normal 5-43 [facility] Comment on above: Performed By: #### 2 224981, 22161467, 9502730, 65668142, 2928031, 0267275, 60894267 ####[facility] [address] [place] [address] Bilirubin [Mass/Vol] 0.5 mg/dL Normal 0.0-1.1 [facility] Comment on above: Performed By: #### 2 159576, 14899885, 0956666, 38119148, 8418362, 3294776, 79757097 ####[facility] [address] [place] [address] Calcium [Mass/Vol] 8.8 mg/dL Low 8.9-11.1 [facility] Comment on above: Performed By: #### 2 737683, 31727287, 0577017, 44856714, 4687360, 7344542, 06470660 ####[facility] [address] [place] [address] Chloride [Moles/Vol] 108 mmol/L Normal 101-111 [facility] Comment on above: Performed By: #### 2 780084, 74121118, 6842902, 52643278, 2610155, 3431144, 12774464 ####[facility] [address] [place] [address] CO2 [Moles/Vol] 22 mmol/L Normal 21-31 [facility] Comment on above: Performed By: #### 2 546287, 61359638, 8780411, 25225395, 3115426, 8651834, 11996428 ####[facility] [address] [place] [address] Creatinine [Mass/Vol] 0.6 mg/dL Normal 0.5-1.3 [facility] Comment on above: Performed By: #### 2 530021, 89696709, 2943855, 88246593, 4789957, 6087883, 16952674 ####[facility] [address] [place] [address] Globulin (S) [Mass/Vol] 3.8 g/dL Normal 1.4-4.0 [facility] Comment on above: Performed By: #### 2 625176, 55800144, 7529989, 52366608, 7795322, 8997331, 01047304 ####[facility] [address] [place] [address] Glucose [Mass/Vol] 88 mg/dL Normal 55-199 [facility] Comment on above: Result Comment: If t his glucose result represents a fasting glucose, interpretation should refer to the following reference range: 55-99 mg/dL Performed By: #### 2 866538, 07168818, 1760157, 10007615, 3675276, 6063826, 81770564 ####[facility] [address] [place] [address] Potassium [Moles/Vol] 3.5 mmol/L Normal 3.5-5.3 [facility] Comment on above: Performed By: #### 2 766703, 08408207, 0129947, 06048575, 3142342, 7760565, 00852755 ####[facility] [address] [place] [address] Protein [Mass/Vol] 6.6 g/dL Normal 6.0-7.8 [facility] Comment on above: Performed By: #### 2 949655, 62262720, 7333219, 34817784, 0350375, 6556617, 15007251 ####[facility] [address] [place] [address] Sodium [Moles/Vol] 138 mmol/L Normal 135-145 [facility] Comment on above: Performed By: #### 2 614226, 13058902, 2994161, 97835744, 1336216, 4718906, 06208030 ####[facility] [address] [place] [address] Urea nitrogen [Mass/Vol] 7 mg/dL Normal 5-21 [facility] Comment on above: Performed By: #### 2 064258, 24745002, 1312449, 83903823, 7713177, 9998626, 72715331 ####[facility] [address] [place] [address] Urea nitrogen/Creatinine [Mass ratio] 12 No Units Normal 10-20 [facility] Comment on above: Performed By: #### 2 696560, 00064532, 3077098, 52484695, 9672929, 1668488, 58325588 ####[facility] [address] [place] [address] HEMATOLOGYOrdered By: SYSTEM SYSTEM on 08-23-2023 Basophils/100 [...] 5.8 E9/L Normal 2.0 - 7.5 E9/L [facility] HemeAutoSS HEMATOLOGYOrdered By: An Lassiter on 08-23-2023 Erythrocyte distribution width (RBC) [Ratio] 14.5 % High 10.9 - 14.2 % [facility] HemeAutoSS Hematocrit (Bld) [Volume fraction] 36.4 % Normal 34.0 - 46.0 % [facility] HemeAutoSS Hemoglobin (Bld) [Mass/Vol] 12.1 g/dL Normal 12.0 - 16.0 gm/dL [facility] HemeAutoSS MCH (RBC) [Entitic mass] 30.2 pg Normal 27.0 - 34.0 pg [facility] HemeAutoSS MCHC (RBC) [Mass/Vol] 33.3 g/dL Normal 31.4 - 36.0 gm/dL [facility] HemeAutoSS MCV (RBC) [Entitic vol] 90.8 fL Normal 80.0 - 100.0 fL [facility] HemeAutoSS Platelet mean volume (Bld) [Entitic vol] 9.7 fL Normal 6.4 - 10.8 fL [facility] HemeAutoSS Platelets (Bld) [#/Vol] 270.0 E9/L Normal 150.0 - 500.0 E9/L [facility] HemeAutoSS RBC (Bld) [#/Vol] 4.0 E12/L Low 4.3 - 5.9 E12/L [facility] HemeAutoSS WBC corrected for nucl RBC Auto (Bld) [#/Vol] 7.7 E9/L Normal 4.0 - 11.0 E9/L [facility] HemeAutoSS Lipid Panelon 08-23-2023 Cholesterol [Mass/Vol] 238 mg/dL High 120-200 [facility] Comment on above: Performed By: #### 2 341315, 97263382, 6649489, 79193073, 6063838, 8020562, 73402381 ####[address] [place] [address] Cholesterol in HDL [Mass/Vol] 64 mg/dL Invalid Interpretation Code [facility] Comment on above: Result Comment: HDL > or equal to 60 mg/dL: Low cardiovascular riskHDL < 40 mg/dL : High cardiovascular risk Performed By: #### 2 548310, 05573883, 1034718, 53888874, 6304253, 0662709, 13317795 ####[facility] [address] [place] [address] Cholesterol in LDL [Mass/Vol] 146 mg/dL High <=129 [facility] Comment on above: Performed By: #### 2 081806, 66954179, 3364748, 63946519, 4918104, 8871507, 21548695 ####[facility] [address] [place] [address] Cholesterol in VLDL [Mass/Vol] 33 mg/dL Normal 7-40 [facility] Comment on above: Performed By: #### 2 854952, 28830794, 2676954, 39955326, 2647432, 2548069, 64679069 ####[facility] [address] [place] [address] Triglyceride [Mass/Vol] 164 mg/dL High <=149 [facility] Comment on above: Performed By: #### 2 697993, 99885655, 1867595, 66916992, 4446310, 5596161, 99216873 ####[facility] [address] [place] [address] Physician Orderon 08-23-2023 Physician Order [id number]#1.00TIFF Normal [facility] T4 & TSHon 08-23-2023 T4 [Mass/Vol] 11.8 microgram/dL High 4.6-9.1 [facility] Comment on above: Performed By: #### 2 280638, 89163064, 9231822, 21759153, 9380875, 1874071, 78641502 ####[facility] [address] [place] [address] TSH Qn 3.61 m[IU]/L Normal 0.34-5.60 [facility] Comment on above: Performed By: #### 2 807773, 50610511, 5576498, 33780019, 0653602, 8895725, 86852102 ####[facility] [address] [place] [address] eGFRon 08-23-2023 GFR/1.73 sq M.predicted among non-blacks MDRD (S/P/Bld) [Vol rate/Area] 125 mL/min/1.73 m2 Normal >=59 [facility] Comment on above: Order Comment: Order added by Discern Expert. Result Comment: Buttonhole Facer lucy kidney disease could be indicated at eGFR's of less than 60 mL/min/1.73m2. Kidney failure is indicated at less than 15 mL/min/1.73m2. Performed By: #### 2 907528, 24808785, 7890425, 87470738, 7147315, 7269531, 17205006 ####[facility] [address] [place] [address] Nursing Assessmenton 023 Nursing Assessment [id number]#1.00TIFF Normal [facility] Consent for Treatmenton Consent for Treatment [id number]#1.00TIFF Normal [facility] Discharge Instructionson Discharge Instructions [id number]#1.00TIFF Normal [facility] Inpatient Clinical Summaryon 08-18-2023 Inpatient Clinical Summary Normal [facility] Inpatient Patient Summaryon 08-18-2023 Inpatient Patient Summary Normal [facility] Insurance Correspondenceon 10-18-2022 Insurance Correspondence [id number]#1.00TIFF Normal [facility] Vaccinationson 08-18-2023 Vaccinations [id number]#1.00TIFF Normal [facility] C Urineon 07-27-2023 Bacteria identified Cx Nom (U) Normal [facility] Comment on above: Performed By: #### 2 994323, 61651070 ####[facility] [address] [place] [address] ABO/Rhon 07-25-2023 ABO/Rh Positive Invalid Interpretation Code [facility] Comment on above: Performed By: #### 2 929682 ####[facility] [address] [place] [address] Auto Diffon 07-25-2023 Basophils/100 WBC (Bld) 1.1 % Normal 0.0-2.0 [facility] Comment on above: Order Comment: Order Added by Discern Expert. Performed By: #### 1 0756642, 6060615, 4719644, 2266664, 5643079, 0199323 ####[address] [address] Basophils/Leukocytes Auto (Bld) [Pure # fraction] 0.1 E9/L Normal 0.0-0.2 [facility] Comment on above: Order Comment: Order Added by Discern Expert. Performed By: #### 1 6964630, 0997170, 3740127, 1898874, 1613292, 7130621 ####[address] [place] [address] Eosinophils/100 WBC (Bld) 1.2 % Normal 0.0-8.0 [facility] Comment on above: Order Comment: Order Added by Discern Expert. Performed By: #### 1 3532761, 3614621, 6516947, 7288741, 0466179, 2981077 ####[facility] [address] [place] [address] Eosinophils/Leukocytes Auto (Bld) [Pure # fraction] 0.1 E9/L Normal 0.0-0.5 [facility] Comment on above: Order Comment: Order Added by Discern Expert. Performed By: #### 1 8493567, 6069498, 6113340, 7593747, 0188227, 3163143 ####[facility] [address] [place] [address] Lymphocytes/100 WBC (Bld) 23.7 % Normal 14.0-50.0 [facility] Comment on above: Order Comment: Order Added by Discern Expert. Performed By: #### 1 0337017, 0418042, 7676895, 5516224, 2031650, 3433330 ####[address] [place] [address] Lymphocytes/Leukocytes Auto (Bld) [Pure # fraction] 1.4 E9/L Normal 1.0-4.0 [facility] Comment on above: Order Comment: Order Added by Discern Expert. Performed By: #### 1 0201669, 9117201, 0285136, 0052174, 5627017, 2189472 ####[address] [address] Monocytes/100 WBC (Bld) 6.7 % Normal 4.0-14.0 [facility] Comment on above: Order Comment: Order Added by Discern Expert. Performed By: #### 1 2683423, 5001312, 4069651, [id number], [id number], [id number] ####[address] [place] [address] Monocytes/Leukocytes Auto (Bld) [Pure # fraction] 0.4 E9/L Normal 0.2-1.0 [facility] Comment on above: Order Comment: Order Added by Discern Expert. Performed By: #### 1 [id number], [id number], [id number], [id number], [id number], [id number] ####[address] [place] [address] Neutrophils/100 WBC (Bld) 67.3 % Normal 36.0-75.0 [facility] Comment on above: Order Comment: Order Added by Discern Expert. Performed By: #### 1 [id number], [id number], 2272432, [id number], [id number] ####[address] [place] [address] Neutrophils/Leukocytes Auto (Bld) [Pure # fraction] 4.0 E9/L Normal 2.0-7.5 [facility] Comment on above: Order Comment: Order Added by Discern Expert. Performed By: #### 1 [id number], [id number], [id number], [id number], [id number], [id number] ####[facility] [address] [place] [address] BLOOD BANKOrdered By: An Lassiter on 07-25-2023 ABO/Rh Interp Positive Invalid Interpretation Code [facility] [place] BB Subsection BMPon 07-25-2023 Creatinine [Mass/Vol] 0.6 mg/dL Normal 0.5-1.3 [facility] Comment on above: Performed By: #### 1 [id number], [id number], [id number], [id number], 0037462, 6720883 ####[facility] [address] [place] [address] Urea nitrogen [Mass/Vol] 6 mg/dL Normal 5-21 [facility] Comment on above: Performed By: #### 1 5376256, 1521383, 1207816, 8017988, 2533640, 9700462 ####[facility] [address] [place] [address] Urea nitrogen/Creatinine [Mass ratio] 10 No Units Normal 10-20 [facility] Comment on above: Performed By: #### 1 5843734, 9319116, 0198722, 9915843, 5606806, 1544170 ####[facility] [address] [place] [address] Anion gap [Moles/Vol] 2 mmol/L Low 6-16 [facility] Comment on above: Performed By: #### 1 8359673, 4319959, 9102970, 7033625, 9398765, 8323309 ####[facility] [address] [place] [address] Calcium [Mass/Vol] 8.6 mg/dL Low 8.9-11.1 [facility] Comment on above: Performed By: #### 1 5380315, 0807181, 1556689, 6217906, 2922737, 4876317 ####[facility] [address] [place] [address] Chloride [Moles/Vol] 107 mmol/L Normal 101-111 [facility] Comment on above: Performed By: #### 1 1422080, 1043575, 2488052, 3067949, 8525455, 4053524 ####[facility] [address] [place] [address] CO2 [Moles/Vol] 27 mmol/L Normal 21-31 [facility] Comment on above: Performed By: #### 1 6869955, 7711144, 6971458, 7327848, 7794544, 6155584 ####[facility] [address] [place] [address] Glucose [Mass/Vol] 73 mg/dL Normal 55-199 [facility] Comment on above: Result Comment: If t his glucose result represents a fasting glucose, interpretation should refer to the following reference range: 55-99 mg/dL Performed By: #### 1 2309517, 2302656, 1826019, 7785379, 8141845, 1113454 ####[facility] [address] [place] [address] Potassium [Moles/Vol] 3.9 mmol/L Normal 3.5-5.3 [facility] Comment on above: Performed By: #### 1 8928109, 7198094, 8818863, 0968903, 7911277, 2552406 ####[facility] [address] [place] [address] Sodium [Moles/Vol] 132 mmol/L Low 135-145 [facility] Comment on above: Performed By: #### 1 7490643, 6561177, 5678831, 0808899, 3741798, 2742622 ####[facility] [address] [place] [address] BhCG Quanton 07-25-2023 [place] [address] m[IU]/mL High 1-3 F [facility] Comment on above: Result Comment: GEST ATIONAL AGE HCG RANGE (mIU/mL) NON- <1-3 0.2-1 WEEKS 5-50 1-2 WEEKS 50-500 2-3 WEEKS 100-5,000 3-4 WEEKS 500-10,000 4-5 WEEKS 1,000-50,000 5-6 WEEKS 10,000-100,000 6-8 WEEKS 15,000-200,000 8-12 WEEKS 10,000-100,000 Performed By: #### 2 434689 ####[facility] [address] [place] [address] CBC w/ Auto Diffon Erythrocyte distribution width (RBC) [Ratio] 14.0 % Normal 10.9-14.2 [facility] Comment on above: Performed By: #### 1 9535770, 4994531, 7868706, 0444205, 5117048, 7658779 ####[facility] [address] [place] [address] Hematocrit (Bld) [Volume fraction] 37.1 % Normal 34.0-46.0 [facility] Comment on above: Performed By: #### 1 3607981, 0444172, 0459941, 9790837, 6660297, 6558813 ####[facility] [address] [place] [address] Hemoglobin (Bld) [Mass/Vol] 12.5 g/dL Normal 12.0-16.0 [facility] Comment on above: Performed By: #### 1 0742223, 7984196, 0670953, 8431759, 4405966, 2235141 ####[facility] [address] [place] [address] MCH (RBC) [Entitic mass] 29.9 pg Normal 27.0-34.0 [facility] Comment on above: Performed By: #### 1 9294624, 9275244, 8771786, 3124693, 8340946, 0082598 ####[facility] [address] [place] [address] MCHC (RBC) [Mass/Vol] 33.8 g/dL Normal 31.4-36.0 [facility] Comment on above: Performed By: #### 1 2948300, 0473185, 2538302, 0267572, 5476162, 6522863 ####[facility] [address] [place] [address] MCV (RBC) [Entitic vol] 88.4 fL Normal 80.0-100.0 [facility] Comment on above: Performed By: #### 1 8961144, 6332638, 5963533, 8424432, 1799883, 3350369 ####[address] [place] [address] Platelet mean volume (Bld) [Entitic vol] 7.9 fL Normal 6.4-10.8 [facility] Comment on above: Performed By: #### 1 9628968, 3748165, 6391549, 9863137, 1274686, 5265488 ####[address] [address] Platelets (Bld) [#/Vol] 261.0 E9/L Normal 150.0-500.0 [facility] Comment on above: Performed By: #### 1 2160380, 3272722, 4119567, 2712149, 0755423, 8477207 ####[address] [address] RBC (Bld) [#/Vol] 4.2 E12/L Low 4.3-5.9 [facility] Comment on above: Performed By: #### 1 0756590, 4266636, 6642731, 4478046, 0171682, 8730537 ####[address] [place] [address] WBC corrected for nucl RBC Auto (Bld) [#/Vol] 5.9 E9/L Normal 4.0-11.0 [facility] Comment on above: Performed By: #### 1 4105949, 4204900, 8214676, 0920614, 7708397, 1363584 ####[facility] [address] [place] [address] CHEMISTRYOrdered By: SYSTEM SYSTEM on 07-25-2023 Albumin [...] 125 mL/min/1.73 m2 Normal >=59mL/min/ 1.73 m2 [facility] Chem S Comment on above: Interpretive Data: C hronic kidney disease could be indicated at eGFR's of less than 60 mL/min/1.73m2. Kidney failure is indicated at less than 15 mL/min/1.73m2. Globulin (S) [Mass/Vol] 3.6 g/dL Normal 1.4 - 4.0 gm/dL [facility] Remisol Glucose [Mass/Vol] 73 mg/dL Normal 55 - 199 mg/dL [facility] Comment on above: Interpretive Data: I f this glucose result represents a fasting glucose, interpretation should refer to the following reference range: 55-99 mg/[place] [address] m[IU]/mL High 1 - 3 mIU/mL [facility] Remisol Comment on above: Interpretive Data: G ESTATIONAL AGE HCG RANGE (mIU/mL) NON- <1-3 0.2-1 WEEKS 5-50 1-2 WEEKS 50-500 2-3 WEEKS 100-5,000 3-4 WEEKS 500-10,000 4-5 WEEKS 1,000-50,000 5-6 WEEKS 10,000-100,000 6-8 WEEKS 15,000-200,000 8-12 WEEKS 10,000-100,000 Lipase [Catalytic activity/Vol] 28 U/L Normal 13 - 58 unit/L [facility] Remisol Potassium [Moles/Vol] 3.9 mmol/L Normal 3.5 - 5.3 mmol/L [facility] Protein [Mass/Vol] 6.7 g/dL Normal 6.0 - 7.8 gm/dL [facility] Remisol Sodium [Moles/Vol] 132 mmol/L Low 135 - 145 mmol/L [facility] Remisol Urea nitrogen [Mass/Vol] 6 mg/dL Normal 5 - 21 mg/dL [facility] Remisol Urea nitrogen/Creatinine [Mass ratio] 10 mg/mg Normal 10 - 20 [facility] Remisol Consent for Treatmenton 07-15 Consent for Treatment [id number] Normal [facility] Discharge Instructionson Discharge Instructions [id number] Normal [facility] ED Clinical Summaryon 2022 ED Clinical Summary Normal [facility] ED Note-Physicianon 07-25-20 ED Note-Physician Normal [facility] Comment on above: Result Comment: Elec tronically Signed By: Jorge Velarde PA-C\.br\Date and Time Signed: 07/25/23 10:02 EDT\.br\Electronically Co-Signed By: Kristian Guillermo DO\.br\Date and Time Co-Signed: 07/25/23 20:25 EDT ED Patient Education Noteon 07-25-2023 ED Patient Education Note Normal [facility] ED Patient Summaryon 023 ED Patient Summary Normal [facility] HEMATOLOGYOrdered By: SYSTEM SYSTEM on 07-25-2023 Basophils/100 [...] 12.5 g/dL Normal 12.0 - 16.0 gm/dL FT [...] 4.2 E12/L Low 4.3 - 5.9 E12/L [facility] HemeAutoSS WBC corrected for nucl RBC Auto (Bld) [#/Vol] 5.9 E9/L Normal 4.0 - 11.0 E9/L [facility] HemeAutoSS Hep Func Panelon 07-25-2023 Bilirubin.indirect [Mass or moles/Vol] UTC Abnormal 0.1-0.9 [facility] Comment on above: Result Comment: Resu lt verified by Discern Rule. Performed result UTC (Unable to Calculate) was sent as an Alpha code due the inability to calculate a valid numeric value. Performed By: #### 1 4834053, 9098499, 4343439, 8833943, 7298668, 3875040 ####[facility] [address] [place] [address] Albumin [Mass/Vol] 3.1 g/dL Low 3.3-5.0 [facility] Comment on above: Performed By: #### 1 9366523, 6075609, 1642060, 4404072, 6201978, 6484521 ####[facility] [address] [place] [address] Albumin/Globulin (S) [Mass conc ratio] 0.9 Low 1.1-2.2 [facility] Comment on above: Performed By: #### 1 8306574, 4215280, 8045321, 9087686, 7268911, 8066466 ####[address] [place] [address] ALP [Catalytic activity/Vol] 35 Int._Unit/L Normal 21-98 [facility] Comment on above: Performed By: #### 1 7358156, 7165702, 6979422, 1382440, 6793242, 5625366 ####[address] [place] [address] ALT No additional P-5'-P [Catalytic activity/Vol] 10 Int._Unit/L Normal 6-46 [facility] Comment on above: Performed By: #### 1 2971471, 1368334, 7264222, 5626950, 3074024, 2460993 ####[address] [place] [address] AST [Catalytic activity/Vol] 18 Int._Unit/L Normal 5-43 [facility] Comment on above: Performed By: #### 1 2341378, 7752790, 9359110, 1536184, 6628032, 1121040 ####[address] [place] [address] Bilirubin [Mass/Vol] 0.4 mg/dL Normal 0.0-1.1 [facility] Comment on above: Performed By: #### 1 6601783, 9402964, 6278126, 6195078, 7956530, 5054531 ####[address] [place] [address] Globulin (S) [Mass/Vol] 3.6 g/dL Normal 1.4-4.0 [facility] Comment on above: Performed By: #### 1 0522837, 1361428, 7220755, 7970954, 3538522, 0719081 ####[facility] [address] [place] [address] Protein [Mass/Vol] 6.7 g/dL Normal 6.0-7.8 [facility] Comment on above: Performed By: #### 1 5260011, 8531114, 3205524, 1365020, 2585778, 4778364 ####[facility] [address] [place] [address] Bilirubin.direct [Mass/Vol] mg/dL Normal 0.1-0.4 [facility] Comment on above: Performed By: #### 1 2886974, 8973845, 6730696, 4672478, 4426018, 3959828 ####[facility] [address] [place] [address] Lipase Levelon 07-25-2023 Lipase [Catalytic activity/Vol] 28 U/L Normal 13-58 [facility] Comment on above: Performed By: #### 1 2509172, 6684172, 6952338, 2226778, 2582096, 5529743 ####[address] [place] [address] UA With Cult Reflexon 2022 Bacteria LM Ql (Urine sed) TRACE Normal Trace [facility] Comment on above: Performed By: #### 2 259199, 21430780 ####[address] [place] [address] Bilirubin Ql (U) Negative Normal Negative [facility] Comment on above: Performed By: #### 2 695394, 48296254 ####[address] [address] Clarity (U) SL CLOUDY Abnormal Clear [facility] Comment on above: Performed By: #### 2 934126, 56452633 ####[facility] [address] [place] [address] Color (U) YELLOW Normal Yellow [facility] Comment on above: Performed By: #### 2 499192, 27506886 ####[address] [address] Epithelial cells.squamous LM.HPF (Urine sed) [#/Area] 0-2 Normal 0-2 [facility] Comment on above: Performed By: #### 2 902106, 54968989 ####[facility] [address] [place] [address] Glucose Test strip (U) [Mass/Vol] Negative Normal Negative [facility] Comment on above: Performed By: #### 2 712786, 39743014 ####[facility] [address] [facility] [place] [address] Hemoglobin Ql (U) Negative Normal Negative [facility] Comment on above: Performed By: #### 2 622666, 22776804 ####[facility] [address] [place] [address] Ketones (U) [Mass/Vol] Negative Normal Negative [facility] Comment on above: Performed By: #### 2 205759, 43311349 ####[facility] [address] [place] [address], [place] [address] [place].plasma/[place] .RBC (Bld) [Mass ratio] 0-3 Normal 0-3 [facility] Comment on above: Performed By: #### 2 989563, 43610083 ####[facility] [address] [place] [address] Nitrite Ql (U) Negative Normal Negative [facility] Comment on above: Performed By: #### 2 831000, 75347350 ####[facility] [address] [place] [address] pH (U) 7.5 [pH] Invalid Interpretation Code 5.0-9.0 [facility] Comment on above: Performed By: #### 2 770650, 18908542 ####[facility] [address] [place] [address] Protein (U) [Mass/Vol] Negative Normal Negative [facility] Comment on above: Performed By: #### 2 973671, 15976531 ####[facility] [address] [place] [address] Specific gravity (U) [Rel density] 1.010 Invalid Interpretation Code 1.005-1.030 [facility] Comment on above: Performed By: #### 2 048129, 87539356 ####[facility] [address] [place] [address] Type of Urine collection method Clean Catch Normal [facility] Comment on above: Performed By: #### 2 387519, 68148441 ####[facility] [address] [place] [address] Urobilinogen Qn (U) 1.0 {Rola'U}/dL Normal 0.0-1.0 [facility] Comment on above: Performed By: #### 2 132904, 01276853 ####[facility] [address] [place] [address] WBC Auto Ql (U) 2+ Abnormal Negative [facility] Comment on above: Performed By: #### 2 934616, 06831598 ####[facility] [address] [place] [address] WBC LM.HPF (Urine sed) [#/Area] 0-5 Normal 0-5 [facility] Comment on above: Performed By: #### 2 913557, 25217586 ####[facility] [address] [place], [place] [address] URINALYSISOrdered By: Emy Aiken on 07-25-2023 Bacteria [...] AM) Normal Negative [facility] UA Auto SS [place].plasma/[place] .RBC (Bld) [Mass ratio] 0-3 /HPF Normal [...] Desc Clean Catch (07/25/23 8:33 AM) Normal [facility] UA Auto SS Urobilinogen Qn (U) 1.1251695 {Rola'U}/dL Normal 0.0 - 1.0 EU/dL [facility] UA Auto SS WBC Auto Ql (U) 2+ *ABN* (07/25/23 8:33 AM) Invalid Interpretation Code Negative [facility] UA Auto SS WBC LM.HPF (Urine sed) [#/Area] 0-5 /HPF Normal 0-5/HPF [facility] UA Auto SS US Limitedon 07-25 US Limited Normal [facility] eGFRon 07-25-2023 GFR/1.73 sq M.predicted among non-blacks MDRD (S/P/Bld) [Vol rate/Area] 125 mL/min/1.73 m2 Normal >=59 [facility] Comment on above: Order Comment: Order added by Discern Expert. Result Comment: Buttonhole Facer lucy kidney disease could be indicated at eGFR's of less than 60 mL/min/1.73m2. Kidney failure is indicated at less than 15 mL/min/1.73m2. Performed By: #### 1 5852936, 1494711, 0530293, 0552396, 0635275, 6258059 ####[facility] [address] [place] [address] C Urineon 06-30-2023 Bacteria identified Cx Nom (U) Normal [facility] Comment on above: Performed By: #### 2 137464 ####[facility] [address] [place] [address] Family Medicine Office/Clini c Noteon 06-28-2023 [facility] Office/Clinic Note Normal [facility] Comment on above: Result Comment: Elec tronically Signed By: Татьяна NICHOLS, Roverto Barron\.br\Date and Time Signed: 06/28/23 11:41 EDT Patient Educationon 06-28-20 Patient Education Normal [facility] ABO/Rhon 06-14-2023 ABO/Rh Positive Invalid Interpretation Code [facility] Comment on above: Performed By: #### 2 756056 ####[facility] [address] [place] [address] Auto Diffon 06-14-2023 Basophils/100 WBC (Bld) 0.8 % Normal 0.0-2.0 [facility] Comment on above: Order Comment: Order Added by Discern Expert. Performed By: #### 2 003439, 5161829, 4190075, 1656813, 4763858, 60085845 ####[facility] [address] [place] [address] Basophils/Leukocytes Auto (Bld) [Pure # fraction] 0.0 E9/L Normal 0.0-0.2 [facility] Comment on above: Order Comment: Order Added by Discern Expert. Performed By: #### 2 959080, 6413333, 6678037, 7276795, 3732964, 16862717 ####[facility] [address] [place] [address] Eosinophils/100 WBC (Bld) 1.9 % Normal 0.0-8.0 [facility] Comment on above: Order Comment: Order Added by Discern Expert. Performed By: #### 2 336358, 9762652, 7403296, 5547765, 3194080, 04369444 ####[facility] [address] [place] [address] Eosinophils/Leukocytes Auto (Bld) [Pure # fraction] 0.1 E9/L Normal 0.0-0.5 [facility] Comment on above: Order Comment: Order Added by Gisselle Expert. Performed By: #### 2 449117, 1988167, 9601899, 5736892, 3301405, 79756536 ####[facility] [address] [place] [address] Lymphocytes/100 WBC (Bld) 24.5 % Normal 14.0-50.0 [facility] Comment on above: Order Comment: Order Added by Discern Expert. Performed By: #### 2 168026, 7867830, 1644226, 7514965, 9499230, 31774823 ####[address] [place] [address] Lymphocytes/Leukocytes Auto (Bld) [Pure # fraction] 1.3 E9/L Normal 1.0-4.0 [facility] Comment on above: Order Comment: Order Added by Gisselle Expert. Performed By: #### 2 524337, 2468295, 9736523, 4375752, 2140004, 61179438 ####[facility] [address] [place] [address] Monocytes/100 WBC (Bld) 7.8 % Normal 4.0-14.0 [facility] Comment on above: Order Comment: Order Added by Gisselle Expert. Performed By: #### 2 399989, 7853131, 7538076, 5730810, 1065888, 18610647 ####[address] [place] [address] Monocytes/Leukocytes Auto (Bld) [Pure # fraction] 0.4 E9/L Normal 0.2-1.0 [facility] Comment on above: Order Comment: Order Added by Gisselle Expert. Performed By: #### 2 231299, 3010120, 7292193, 2815860, 6225767, 29419176 ####[facility] [address] [place] [address] Neutrophils/100 WBC (Bld) 65.0 % Normal 36.0-75.0 [facility] Comment on above: Order Comment: Order Added by Discern Expert. Performed By: #### 2 437186, 8682069, 6112395, 3910872, 4467545, 90092723 ####[facility] [address] [place] [address] Neutrophils/Leukocytes Auto (Bld) [Pure # fraction] 3.5 E9/L Normal 2.0-7.5 [facility] Comment on above: Order Comment: Order Added by Discern Expert. Performed By: #### 2 905416, 2465739, 1674860, 9871412, 4506790, 08410069 ####[facility] [address] [place] [address] BLOOD BANKOrdered By: Keila Kumar on 06-14-2023 ABO/Rh Interp Positive Invalid Interpretation Code [facility] BB Subsection BMPon 06-14-2023 Creatinine [Mass/Vol] 0.5 mg/dL Normal 0.5-1.3 [facility] Comment on above: Performed By: #### 2 951286, 1762730, 1070873, 7122053, 3475117, 30688993 ####[facility] [address] [place] [address] Urea nitrogen [Mass/Vol] 6 mg/dL Normal 5-21 [facility] Comment on above: Performed By: #### 2 978554, 4592262, 9083340, 4416313, 2335677, 42160916 ####[facility] [address] [place] [address] Urea nitrogen/Creatinine [Mass ratio] 12 No Units Normal 10-20 [facility] Comment on above: Performed By: #### 2 003421, 1117611, 8419905, 0770290, 5673519, 66250570 ####[facility] [address] [place] [address] Anion gap [Moles/Vol] 10 mmol/L Normal 6-16 [facility] Comment on above: Performed By: #### 2 106429, 9860179, 4815692, 0932362, 3433562, 80071912 ####[facility] [address] [place] [address] Calcium [Mass/Vol] 8.7 mg/dL Low 8.9-11.1 [facility] Comment on above: Performed By: #### 2 495608, 3950745, 7482596, 7791454, 3498048, 82847987 ####[facility] [address] [place] [address] Chloride [Moles/Vol] 107 mmol/L Normal 101-111 [facility] Comment on above: Performed By: #### 2 569878, 5928506, 5531951, 6537457, 9032260, 00038537 ####[facility] [address] [place] [address] CO2 [Moles/Vol] 21 mmol/L Normal 21-31 [facility] Comment on above: Performed By: #### 2 477197, 4608703, 2794859, 3405642, 8960575, 52420450 ####[facility] [address] [place] [address] Glucose [Mass/Vol] 77 mg/dL Normal 55-199 [facility] Comment on above: Result Comment: If t his glucose result represents a fasting glucose, interpretation should refer to the following reference range: 55-99 mg/dL Performed By: #### 2 541032, 2925516, 9172521, 9235141, 2727329, 30643208 ####[facility] [address] [place] [address] Potassium [Moles/Vol] 3.8 mmol/L Normal 3.5-5.3 [facility] Comment on above: Performed By: #### 2 350383, 0696630, 8606726, 4156759, 3748373, 57525414 ####[facility] [address] [place] [address] Sodium [Moles/Vol] 134 mmol/L Low 135-145 [facility] Comment on above: Performed By: #### 2 446191, 3854015, 0774530, 8095826, 7196409, 32563889 ####[facility] [address] [place] [address] BhCG Quanton 06-14-2023 HCG.beta subunit Qn 314724 m[IU]/mL High 1-3 [facility] Comment on above: Result Comment: GEST ATIONAL AGE HCG RANGE (mIU/mL) NON- <1-3 0.2-1 WEEKS 5-50 1-2 WEEKS 50-500 2-3 WEEKS 100-5,000 3-4 WEEKS 500-10,000 4-5 WEEKS 1,000-50,000 5-6 WEEKS 10,000-100,000 6-8 WEEKS 15,000-200,000 8-12 WEEKS 10,000-100,000 Performed By: #### 2 200190 ####[facility] [address] [place] [address] CBC w/ Auto Diffon Erythrocyte distribution width (RBC) [Ratio] 12.6 % Normal 10.9-14.2 [facility] Comment on above: Performed By: #### 2 478122, 4908890, 8488436, 0849038, 9586823, 97435354 ####[facility] [address] [place] [address] Hematocrit (Bld) [Volume fraction] 39.9 % Normal 34.0-46.0 [facility] Comment on above: Performed By: #### 2 074854, 8310341, 5784850, 3939463, 6005876, 02542354 ####[facility] [address] [place] [address] Hemoglobin (Bld) [Mass/Vol] 13.4 g/dL Normal 12.0-16.0 [facility] Comment on above: Performed By: #### 2 551599, 2897828, 6377019, 2161892, 4347446, 25978905 ####[facility] [address] [place] [address] MCH (RBC) [Entitic mass] 29.8 pg Normal 27.0-34.0 [facility] Comment on above: Performed By: #### 2 397771, 3341098, 2012562, 7647666, 5680213, 46777892 ####[address] [place] [address] MCHC (RBC) [Mass/Vol] 33.6 g/dL Normal 31.4-36.0 [facility] Comment on above: Performed By: #### 2 399868, 9099829, 6826114, 9375696, 4902097, 64318494 ####[address] [address] MCV (RBC) [Entitic vol] 88.8 fL Normal 80.0-100.0 [facility] Comment on above: Performed By: #### 2 701169, 8747584, 4953081, 4976684, 7819432, 00438280 ####[place] [address] Platelet mean volume (Bld) [Entitic vol] 8.4 fL Normal 6.4-10.8 [facility] Comment on above: Performed By: #### 2 702797, 6336668, 7382341, 0588885, 4047970, 95184688 ####[address] [address] Platelets (Bld) [#/Vol] 225.0 E9/L Normal 150.0-500.0 [facility] Comment on above: Performed By: #### 2 243903, 5878101, 6608269, 6126842, 2483206, 72964359 ####[address] [address] RBC (Bld) [#/Vol] 4.5 E12/L Normal 4.3-5.9 [facility] Comment on above: Performed By: #### 2 559388, 9442827, 1238785, 8790062, 1801038, 02231888 ####[address] [address] WBC corrected for nucl RBC Auto (Bld) [#/Vol] 5.4 E9/L Normal 4.0-11.0 [facility] Comment on above: Performed By: #### 2 663036, 4547376, 7422213, 6251381, 8647187, 47479765 ####[facility] [address] [place] [address] CHEMISTRYOrdered By: SYSTEM SYSTEM on 06-14-2023 Albumin [...] 130 mL/min/1.73 m2 Normal >=59mL/min/ 1.73 m2 [facility] Chem S Globulin (S) [Mass/Vol] 3.3 g/dL Normal 1.4 - 4.0 gm/dL FT [facility] Glucose [Mass/Vol] 77 mg/dL Normal 55 - 199 mg/dL FT Remisol HCG.beta subunit Qn 886683 m[IU]/mL High 1 - 3 mIU/mL [facility] Lipase [Catalytic activity/Vol] 28 U/L [...] Consent for Treatmenton 05-17 Consent for Treatment [id number] Normal [facility] ED Clinical Summaryon 2022 ED Clinical Summary Normal [facility] ED Note-Physicianon 06-14-20 ED Note-Physician Normal [facility] Comment on above: Result Comment: Elec tronically Signed By: Jos Ugalde PA-C\.br\Date and Time Signed: 06/14/23 11:58 EDT\.br\Electronically Co-Signed By: Kristian Guillermo DO\.br\Date and Time Co-Signed: 06/14/23 17:02 EDT ED Patient Education Noteon 06-14-2023 ED Patient Education Note Normal [facility] ED Patient Summaryon 023 ED Patient Summary Normal [facility] HEMATOLOGYOrdered By: SYSTEM SYSTEM on 06-14-2023 Basophils/100 [...] 225.0 E9/L Normal 150.0 - 500.0 E9/L [facility] [place] HemeAutoSS RBC (Bld) [#/Vol] 4.5 E12/L Normal 4.3 - 5.9 E12/L [facility] [place] HemeAutoSS WBC corrected for nucl RBC Auto (Bld) [#/Vol] 5.4 E9/L Normal 4.0 - 11.0 E9/L [facility] [place] HemeAutoSS Hep Func Panelon 06-14-2023 Bilirubin.indirect [Mass or moles/Vol] UTC Abnormal 0.1-0.9 [facility] Comment on above: Result Comment: Resu lt verified by Discern Rule. Performed result [place] (Unable to Calculate) was sent as an Alpha code due the inability to calculate a valid numeric value. Performed By: #### 2 697468, 3253374, 5860961, 7811123, 0392095, 43692514 ####[facility] [address] [place] [address] Albumin [Mass/Vol] 3.5 g/dL Normal 3.3-5.0 [facility] Comment on above: Performed By: #### 2 481750, 2491853, 0514868, 4770258, 5234809, 78383819 ####[facility] Rptglbvfnb[address] [place] [address] Albumin/Globulin (S) [Mass conc ratio] 1.1 Normal 1.1-2.2 [facility] Comment on above: Performed By: #### 2 183941, 2591463, 7436208, 1964902, 5742861, 64102759 ####[facility] [address] [place] [address] ALP [Catalytic activity/Vol] 34 Int._Unit/L Normal 21-98 [facility] Comment on above: Performed By: #### 2 258741, 4904542, 6471545, 2995223, 9987797, 28924226 ####[facility] [address]vxvh[address] [place] [address] ALT No additional P-5'-P [Catalytic activity/Vol] 13 Int._Unit/L Normal 6-46 [facility] Comment on above: Performed By: #### 2 632926, 2149483, 1005339, 1102291, 9492343, 39815840 ####[facility] [address] [place] [address] AST [Catalytic activity/Vol] 17 Int._Unit/L Normal 5-43 [facility] Comment on above: Performed By: #### 2 555467, 9344796, 1131901, 1869834, 2657430, 75857953 ####[facility] [address]sgzcb[address] [place] [address] Bilirubin [Mass/Vol] 0.6 mg/dL Normal 0.0-1.1 [facility] Comment on above: Performed By: #### 2 602546, 2399620, 9778302, 6392827, 9906435, 14933271 ####[address] [address] Globulin (S) [Mass/Vol] 3.3 g/dL Normal 1.4-4.0 [facility] Comment on above: Performed By: #### 2 853130, 1040129, 5770641, 2003884, 2232770, 00214628 ####[facility] [address] [place] [address] Protein [Mass/Vol] 6.8 g/dL Normal 6.0-7.8 [facility] Comment on above: Performed By: #### 2 001473, 1053140, 0707211, 1323136, 6772608, 79433662 ####[facility] [address] [place] [address] Bilirubin.direct [Mass/Vol] mg/dL Normal 0.1-0.4 [facility] Comment on above: Performed By: #### 2 523656, 5441033, 7366275, 9294331, 6015074, 58527061 ####[facility] [address] [place] [address] Lipase Levelon 06-14-2023 Lipase [Catalytic activity/Vol] 28 U/L Normal 13-58 [facility] Comment on above: Performed By: #### 2 544162, 6426805, 2567408, 3285184, 6332809, 29727245 ####[facility] [address] [facility] [place] [address] Progress Note-Nurseon 2022 Progress Note-Nurse MAHESH Hinds verbalize d she was unable to locate patient at this time Normal [facility] UA With Cult Reflexon 2022 Bacteria LM Ql (Urine sed) TRACE Normal Trace [facility] Comment on above: Performed By: #### 1 7233958 ####[facility] [address]xafrmccz[address] [place] [address] Bilirubin Ql (U) Negative Normal Negative [facility] Comment on above: Performed By: #### 1 1063692 ####[facility] [address] [place] [address] Clarity (U) CLEAR Normal Clear [facility] Comment on above: Performed By: #### 1 7843630 ####[facility] Asus[address]ax[address]xx[address]36 [place] [address] Color (U) YELLOW Normal Yellow [facility] Comment on above: Performed By: #### 1 6919788 ####[facility] Q[address] [place] [address] Epithelial cells.squamous LM.HPF (Urine sed) [#/Area] 3-4 Normal 0-2 [facility] Comment on above: Performed By: #### 1 5572054 ####[facility] [address]az[address] [place] [address] Glucose Test strip (U) [Mass/Vol] Negative Normal Negative [facility] Comment on above: Performed By: #### 1 4477129 ####[facility] M[address] [place] [address] Hemoglobin Ql (U) Negative Normal Negative [facility] Comment on above: Performed By: #### 1 5096640 ####[facility] [address] [address] Ketones (U) [Mass/Vol] Negative Normal Negative [facility] Comment on above: Performed By: #### 1 4465540 ####[address] [address] [place].plasma/[place] .RBC (Bld) [Mass ratio] 0-3 Normal 0-3 [facility] Comment on above: Performed By: #### 1 5614694 ####[address] [address] Mucus Ql (Urine sed) TRACE Normal [facility] Comment on above: Performed By: #### 1 0130561 ####[address] [address] Nitrite Ql (U) Negative Normal Negative [facility] Comment on above: Performed By: #### 1 4740652 ####[address] [address] pH (U) 6.5 [pH] Invalid Interpretation Code 5.0-9.0 [facility] Comment on above: Performed By: #### 1 2671882 ####[address] [address] Protein (U) [Mass/Vol] Negative Normal Negative [facility] Comment on above: Performed By: #### 1 7882754 ####[address] [address] Specific gravity (U) [Rel density] 1.015 Invalid Interpretation Code 1.005-1.030 [facility] Comment on above: Performed By: #### 1 6054520 ####[address] [address] Type of Urine collection method Clean Catch Normal [facility] Comment on above: Performed By: #### 1 3870428 ####[address] [address] Urobilinogen Qn (U) 0.2 {Rola'U}/dL Normal 0.0-1.0 [facility] Comment on above: Performed By: #### 1 4965760 ####[facility] [address]qp[address] [place] [address] WBC Auto Ql (U) TRACE Abnormal Negative [facility] Comment on above: Performed By: #### 1 7066243 ####[facility] R[address]fl[address]qux[address] [place] [address] WBC LM.HPF (Urine sed) [#/Area] 0-5 Normal 0-5 [facility] Comment on above: Performed By: #### 1 3975351 ####[facility] [address]el[address] [place] [address] URINALYSISOrdered By: An Mccarty on 06-14-2023 Bacteria [...] AM) Normal Negative [facility] UA Auto SS [place].plasma/[place] .RBC (Bld) [Mass ratio] 0-3 /HPF Normal [...] [facility] UA Auto SS Urobilinogen Qn (U) 0.8866384 {Rola'U}/dL Normal 0.0 - 1.0 EU/dL [facility] UA Auto SS WBC Auto Ql (U) Trace *ABN* (06/14/23 10:13 AM) Invalid Interpretation Code Negative [facility] UA Auto SS WBC LM.HPF (Urine sed) [#/Area] 0-5 /HPF Normal 0-5/HPF [facility] UA Auto SS US 1st Trimesteron 06-14-2023 US 1st Trimester Normal [facility] eGFRon 06-14-2023 GFR/1.73 sq M.predicted among non-blacks MDRD (S/P/Bld) [Vol rate/Area] 130 mL/min/1.73 m2 Normal >=59 [facility] Comment on above: Order Comment: Order added by Discern Expert. Result Comment: Buttonhole Facer lucy kidney disease could be indicated at eGFR's of less than 60 mL/min/1.73m2. Kidney failure is indicated at less than 15 mL/min/1.73m2. Performed By: #### 2 900964, 5725538, 3089229, 8463502, 0651831, 83466217 ####[facility] [address] [place] [address] CHEMISTRYOrdered By: SYSTEM SYSTEM on 06-12-2023 TSH Qn 3.80 m[IU]/L Normal 0.34 - 5.60 mcIU/mL [facility] Remisol Consent for Treatmenton 05-16 Consent for Treatment [id number]#1.00CD:12 7 Normal [facility] Physician Orderon 06-12-2023 Physician Order [id number]#[id number]:12 7 Normal [facility] TSHon 06-12-2023 TSH Qn 3.80 m[IU]/L Normal 0.34-5.60 [facility] Comment on above: Performed By: #### 2 324058 ####[facility] [address]tp[address] [place] [address] BhCG Quanton 05-22-2023 HCG.beta subunit Qn 187062 m[IU]/mL High 1-3 [facility] Comment on above: Result Comment: GEST ATIONAL AGE HCG RANGE (mIU/mL) NON- <1-3 0.2-1 WEEKS 5-50 1-2 WEEKS 50-500 2-3 WEEKS 100-5,000 3-4 WEEKS 500-10,000 4-5 WEEKS 1,000-50,000 5-6 WEEKS 10,000-100,000 6-8 WEEKS 15,000-200,000 8-12 WEEKS 10,000-100,000 Performed By: #### 2 654288 ####[facility] [address] [place] [address] Discharge Instructionson Discharge Instructions [id number]#[id number]:1 27 Normal [facility] ED Clinical Summaryon 2022 ED Clinical Summary Normal [facility] ED Note-Physicianon 05-22-20 23 ED Note-Physician Normal [facility] Comment on above: Result Comment: Elec tronically Signed By: Gopi Rodriguez DObr\Date and Time Signed: 05/21/23 23:17 EDT ED Patient Education Noteon 05-22-2023 ED Patient Education Note Normal [facility] ED Patient Summaryon 023 ED Patient Summary Normal [facility] UA With Cult Reflexon 2022 Bacteria LM Ql (Urine sed) TRACE Normal Trace [facility] Comment on above: Performed By: #### 1 1071820 ####[facility] [address]vf[address] [place] [address] Bilirubin Ql (U) Negative Normal Negative [facility] Comment on above: Performed By: #### 1 7980285 ####[facility] [address] [place] [address] Clarity (U) CLEAR Normal Clear [facility] Comment on above: Performed By: #### 1 1806047 ####[facility] X[address]tr[address] [place] [address] Color (U) DARK YELLO Abnormal Yellow [facility] Comment on above: Performed By: #### 1 0288841 ####[address] [address] Epithelial cells.squamous LM.HPF (Urine sed) [#/Area] 0-2 Normal 0-2 [facility] Comment on above: Performed By: #### 1 7692468 ####[facility] [address] [place] [address] Glucose Test strip (U) [Mass/Vol] Negative Normal Negative [facility] Comment on above: Performed By: #### 1 3089295 ####[address] [address] Hemoglobin Ql (U) TRACE Abnormal Negative [facility] Comment on above: Performed By: #### 1 2538526 ####[facility] [address] [place] [address] Ketones (U) [Mass/Vol] TRACE Abnormal Negative [facility] Comment on above: Performed By: #### 1 1096924 ####[facility] [address] [place] [address] [place].plasma/[place] .RBC (Bld) [Mass ratio] 4-20 Normal 0-3 [facility] Comment on above: Performed By: #### 1 6699132 ####[facility] [address] [place] [address] Mucus Ql (Urine sed) 1+ Normal [facility] Comment on above: Performed By: #### 1 9192113 ####[address] [place] [address] Nitrite Ql (U) Negative Normal Negative [facility] Comment on above: Performed By: #### 1 0429768 ####[facility] [address] [place] [address] pH (U) 6.0 [pH] Invalid Interpretation Code 5.0-9.0 [facility] Comment on above: Performed By: #### 1 7850593 ####[facility] [address] [place] [address] Protein (U) [Mass/Vol] 2+ Abnormal Negative [facility] Comment on above: Performed By: #### 1 6870886 ####[facility] [address] [place] [address] Specific gravity (U) [Rel density] >=1.030 Invalid Interpretation Code 1.005-1.030 [facility] Comment on above: Performed By: #### 1 1412629 ####[address] [address] Type of Urine collection method Clean Catch Normal [facility] Comment on above: Performed By: #### 1 8746898 ####[facility] [address] [place] [address] Urobilinogen Qn (U) 0.2 {Rola'U}/dL Normal 0.0-1.0 [facility] Comment on above: Performed By: #### 1 4901233 ####[facility] [address] [place] [address] WBC Auto Ql (U) Negative Normal Negative [facility] Comment on above: Performed By: #### 1 0950308 ####[facility] [address] [place] [address] WBC LM.HPF (Urine sed) [#/Area] 0-5 Normal 0-5 [facility] Comment on above: Performed By: #### 1 4453072 ####[facility] [address] [place] [address] US 1st Trimesteron 05-22-2023 US 1st Trimester Normal [facility] Auto Diffon 05-21-2023 Basophils/100 WBC (Bld) 1.0 % Normal 0.0-2.0 [facility] Comment on above: Order Comment: Order Added by Discern Expert. Performed By: #### 2 761346, 3890614, 32230444, 33369722, 7999882, 5354064, 8897914 ####[facility] [address] [place] [address] Basophils/Leukocytes Auto (Bld) [Pure # fraction] 0.1 E9/L Normal 0.0-0.2 [facility] Comment on above: Order Comment: Order Added by Discern Expert. Performed By: #### 2 817070, 9348133, 89675632, 07368148, 8786817, 9168417, 1186147 ####[address] [address] Eosinophils/100 WBC (Bld) 1.5 % Normal 0.0-8.0 [facility] Comment on above: Order Comment: Order Added by Discern Expert. Performed By: #### 2 526803, 2246121, 34676738, 23983391, 7646948, 2424972, 6578422 ####[address] [address] Eosinophils/Leukocytes Auto (Bld) [Pure # fraction] 0.1 E9/L Normal 0.0-0.5 [facility] Comment on above: Order Comment: Order Added by Discern Expert. Performed By: #### 2 389524, 0932104, 46640860, 17775161, 9632781, 2366516, 8895030 ####[address] [place] [address] Lymphocytes/100 WBC (Bld) 36.6 % Normal 14.0-50.0 [facility] Comment on above: Order Comment: Order Added by Discern Expert. Performed By: #### 2 622094, 4679680, 80903761, 61548981, 2536208, 5231797, 3300603 ####[address] [address] Lymphocytes/Leukocytes Auto (Bld) [Pure # fraction] 2.5 E9/L Normal 1.0-4.0 [facility] Comment on above: Order Comment: Order Added by Discern Expert. Performed By: #### 2 235801, 5262336, 97091774, 29639904, 3863232, 0402695, 6980668 ####[address] [place] [address] Monocytes/100 WBC (Bld) 8.2 % Normal 4.0-14.0 [facility] Comment on above: Order Comment: Order Added by Discern Expert. Performed By: #### 2 752795, 8660494, 02580043, 03593108, 5931637, 7802306, 6239772 ####[address] [address] Monocytes/Leukocytes Auto (Bld) [Pure # fraction] 0.6 E9/L Normal 0.2-1.0 [facility] Comment on above: Order Comment: Order Added by Gisselle Expert. Performed By: #### 2 187973, 5568571, 12287202, 69201554, 6150189, 0566297, 1115535 ####[address] [address] Neutrophils/100 WBC (Bld) 52.7 % Normal 36.0-75.0 [facility] Comment on above: Order Comment: Order Added by Gisselle Expert. Performed By: #### 2 100251, 9895678, 81730469, 57181965, 8513589, 9959548, 1613962 ####[address] [place] [address] Neutrophils/Leukocytes Auto (Bld) [Pure # fraction] 3.6 E9/L Normal 2.0-7.5 [facility] Comment on above: Order Comment: Order Added by Gisselle Expert. Performed By: #### 2 965327, 4779400, 28464401, 31742235, 0494714, 2358386, 8824402 ####[address] [place] [address] BMPon 05-21-2023 Creatinine [Mass/Vol] 0.7 mg/dL Normal 0.5-1.3 [facility] Comment on above: Performed By: #### 2 357406, 2892834, 33074337, 74575520, 2856864, 0755023, 0973932 ####[facility] [address] [place] [address] Urea nitrogen [Mass/Vol] 8 mg/dL Normal 5-21 [facility] Comment on above: Performed By: #### 2 668416, 6502671, 08337673, 85293233, 1703650, 8873293, 8137751 ####[facility] [address] [place] [address] Urea nitrogen/Creatinine [Mass ratio] 11 No Units Normal 10-20 [facility] Comment on above: Performed By: #### 2 834669, 2685512, 26280368, 78759216, 9101141, 1685135, 7326014 ####[facility] [address] [place] [address] Anion gap [Moles/Vol] 12 mmol/L Normal 6-16 [facility] Comment on above: Performed By: #### 2 216511, 0579388, 58925936, 34593455, 7701902, 5948162, 1784726 ####[facility] [address] [place] [address] Calcium [Mass/Vol] 9.2 mg/dL Normal 8.9-11.1 [facility] Comment on above: Performed By: #### 2 175513, 9120294, 91938588, 26575399, 8430665, 2288234, 5919381 ####[facility] [address]ux[address] [place] [address] Chloride [Moles/Vol] 104 mmol/L Normal 101-111 [facility] Comment on above: Performed By: #### 2 055610, 4288847, 68460482, 46529833, 5469834, 9864331, 9455954 ####[facility] [address] [place] [address] CO2 [Moles/Vol] 24 mmol/L Normal 21-31 [facility] Comment on above: Performed By: #### 2 767641, 9129940, 21941079, 28571498, 1219974, 4441591, 2279260 ####[facility] [address]av[address] [place] [address] Glucose [Mass/Vol] 87 mg/dL Normal 55-199 [facility] Comment on above: Result Comment: If t his glucose result represents a fasting glucose, interpretation should refer to the following reference range: 55-99 mg/dL Performed By: #### 2 004916, 5634087, 35314514, 82614517, 3441675, 5918246, 9188132 ####[facility] [address]qrwh[address] [place] [address] Potassium [Moles/Vol] 3.2 mmol/L Low 3.5-5.3 [facility] Comment on above: Performed By: #### 2 886014, 6388971, 02096259, 96277384, 3994070, 9270176, 9468852 ####[facility] [address] [place] [address] Sodium [Moles/Vol] 137 mmol/L Normal 135-145 [facility] Comment on above: Performed By: #### 2 503754, 2162526, 89872485, 70097280, 9108289, 1950743, 7407484 ####[facility] [address] [place] [address] CBC w/ Auto Diffon 3 Erythrocyte distribution width (RBC) [Ratio] 13.3 % Normal 10.9-14.2 [facility] Comment on above: Performed By: #### 2 787198, 1519021, 38048758, 49377798, 9521439, 6053661, 6846476 ####[facility] [address] [place] [address] Hematocrit (Bld) [Volume fraction] 39.0 % Normal 34.0-46.0 [facility] Comment on above: Performed By: #### 2 167399, 0582154, 39988593, 74079601, 4366019, 9954578, 7845761 ####[facility] [address]ts[address] [place] [address] Hemoglobin (Bld) [Mass/Vol] 13.3 g/dL Normal 12.0-16.0 [facility] Comment on above: Performed By: #### 2 832516, 8362650, 67122255, 49132514, 7230210, 4821685, 3329976 ####[facility] [address] [place] [address] MCH (RBC) [Entitic mass] 30.3 pg Normal 27.0-34.0 [facility] Comment on above: Performed By: #### 2 249286, 2217471, 41275070, 83284267, 3009566, 2574596, 3195740 ####[facility] [address] [place] [address] MCHC (RBC) [Mass/Vol] 34.2 g/dL Normal 31.4-36.0 [facility] Comment on above: Performed By: #### 2 965497, 6338169, 73324993, 99241738, 5039124, 7135279, 7456347 ####[facility] [address] [place] [address] MCV (RBC) [Entitic vol] 88.7 fL Normal 80.0-100.0 [facility] Comment on above: Performed By: #### 2 114650, 9277442, 64123815, 00427058, 6171393, 2446595, 1998017 ####[facility] [address] [place] [address] Platelet mean volume (Bld) [Entitic vol] 7.8 fL Normal 6.4-10.8 [facility] Comment on above: Performed By: #### 2 625069, 1461139, 44918724, 27028944, 6388280, 4127811, 5862783 ####[facility] [address] [place] [address] Platelets (Bld) [#/Vol] 225.0 E9/L Normal 150.0-500.0 [facility] Comment on above: Performed By: #### 2 981449, 5306664, 14772811, 00671874, 5984697, 7495204, 6176227 ####[facility] [address]xu[address] [place] [address] RBC (Bld) [#/Vol] 4.4 E12/L Normal 4.3-5.9 [facility] Comment on above: Performed By: #### 2 094723, 3985680, 30324928, 18211615, 4781783, 2390465, 5208348 ####[facility] [address] [place] [address] WBC corrected for nucl RBC Auto (Bld) [#/Vol] 6.8 E9/L Normal 4.0-11.0 [facility] Comment on above: Performed By: #### 2 305913, 4969406, 61996313, 62051498, 3023199, 5402339, 7059799 ####[facility] [address] [place] [address] CHEMISTRYOrdered By: SYSTEM SYSTEM on 05-21-2023 HCG.beta subunit Qn 546540 m[IU]/mL High 1 - 3 mIU/mL [facility] [...] 120 mL/min/1.73 m2 Normal >=59mL/min/ 1.73 m2 [facility] Chem S Globulin (S) [Mass/Vol] 3.1 g/dL [...] Remisol Consent for Treatmenton Consent for Treatment [id number]:12 7 Normal [facility] HEMATOLOGYOrdered By: SYSTEM SYSTEM on 05-21-2023 Basophils/100 [...] 30.3 pg Normal 27.0 - 34.0 pg FT HemeAutoSS MCHC (RBC) [Mass/Vol] 34.2 g/dL Normal 31.4 - 36.0 gm/dL [facility] HemeAutoSS MCV (RBC) [Entitic vol] 88.7 fL Normal 80.0 - 100.0 fL [facility] HemeAutoSS Platelet mean volume (Bld) [Entitic vol] 7.8 fL Normal 6.4 - 10.8 fL [facility] HemeAutoSS Platelets (Bld) [#/Vol] 225.0 E9/L Normal 150.0 - 500.0 E9/L [facility] HemeAutoSS RBC (Bld) [#/Vol] 4.4 E12/L Normal 4.3 - 5.9 E12/L FT HemeAutoSS WBC corrected for nucl RBC Auto (Bld) [#/Vol] 6.8 E9/L Normal 4.0 - 11.0 E9/L FT HemeAutoSS Hep Func Panelon 05-21-2023 Bilirubin.indirect [Mass or moles/Vol] UTC Abnormal 0.1-0.9 [facility] Comment on above: Result Comment: Resu lt verified by Discern Rule. Performed result UTC (Unable to Calculate) was sent as an Alpha code due the inability to calculate a valid numeric value. Performed By: #### 2 015825, 8270193, 85006246, 04607319, 9510352, 1086677, 2269713 ####[facility] [address] [place] [address] Albumin [Mass/Vol] 3.8 g/dL Normal 3.3-5.0 [facility] Comment on above: Performed By: #### 2 743143, 1892794, 62900781, 86063937, 7002106, 5475368, 6031055 ####[facility] [address] [place] [address] Albumin/Globulin (S) [Mass conc ratio] 1.2 Normal 1.1-2.2 [facility] Comment on above: Performed By: #### 2 099049, 4532940, 89864605, 26194561, 6881260, 6118222, 5248934 ####[facility] [address] [place] [address] ALP [Catalytic activity/Vol] 42 Int._Unit/L Normal 21-98 [facility] Comment on above: Performed By: #### 2 763599, 8186348, 12596873, 91696423, 7124992, 4879541, 1860012 ####[facility] [address] [place] [address] ALT No additional P-5'-P [Catalytic activity/Vol] 13 Int._Unit/L Normal 6-46 [facility] Comment on above: Performed By: #### 2 258695, 7089536, 75926528, 60583807, 7659750, 4550411, 2087428 ####[address] [address] AST [Catalytic activity/Vol] 14 Int._Unit/L Normal 5-43 [facility] Comment on above: Performed By: #### 2 600377, 3776284, 30953220, 89105854, 5346497, 9655583, 9062449 ####[facility] [address] [place] [address] Bilirubin [Mass/Vol] 0.5 mg/dL Normal 0.0-1.1 [facility] Comment on above: Performed By: #### 2 617633, 7764693, 13737087, 74233850, 7383860, 5108395, 8400747 ####[facility] [address] [place] [address] Globulin (S) [Mass/Vol] 3.1 g/dL Normal 1.4-4.0 [facility] Comment on above: Performed By: #### 2 660551, 2245539, 44484977, 43329775, 4687837, 2241724, 2746314 ####[facility] [address] [place] [address] Protein [Mass/Vol] 6.9 g/dL Normal 6.0-7.8 [facility] Comment on above: Performed By: #### 2 867267, 8970519, 30632856, 60534410, 3206087, 3833215, 7631473 ####[facility] [address] [place] [address] Bilirubin.direct [Mass/Vol] mg/dL Normal 0.1-0.4 [facility] Comment on above: Performed By: #### 2 858051, 2327685, 04107567, 97801215, 8155466, 8215102, 1980040 ####[facility] [address] [place] [address] Lipase Levelon 05-21-2023 Lipase [Catalytic activity/Vol] 31 U/L Normal 13-58 [facility] Comment on above: Performed By: #### 2 906623, 8857180, 73617377, 88239419, 6173639, 8846031, 6671776 ####[facility] [address] [place] [address] Troponin 0 Hr.on 05-21-2023 Troponin I.cardiac [Mass/Vol] 2.50 pg/mL Low 10.10-27.10 [facility] Comment on above: Result Comment: The 95% CI (Confidence Interval) PPV (Positive Predictive Value) for myocardial infarction in females is 38 pg/mL, in males 51 pg/mL. The results should be used in conjunction with clinical conditions of myocardial infarction.(Access High Sensitivity Troponin I Instructions For Use, [employer] [place], May 2018) Performed By: #### 2 086002, 2701179, 69706186, 05930636, 9561772, 0062923, 3298843 ####[facility] [address] [place] [address] URINALYSISOrdered By: Jose Miguel nelson on 05-21-2023 Bacteria LM Ql (Urine sed) Trace /HPF Normal Trace/HPF [facility] UA Auto SS Bilirubin Ql (U) Negative (05/21/23 10:17 PM) Normal Negative FT UA Auto SS Clarity (U) Clear (05/21/23 [...] Interpretation Code Negative [facility] UA Auto SS [place].plasma/[place] .RBC (Bld) [Mass ratio] 4-20 /HPF Normal [...] [facility] UA Auto SS Urobilinogen Qn (U) 0.2483015 {Rola'U}/dL Normal 0.0 - 1.0 EU/dL [facility] UA Auto SS WBC Auto Ql (U) Negative (05/21/23 10:17 PM) Normal Negative [facility] UA Auto SS WBC LM.HPF (Urine sed) [#/Area] 0-5 /HPF Normal 0-5/HPF [facility] UA Auto SS eGFRon 05-21-2023 GFR/1.73 sq M.predicted among non-blacks MDRD (S/P/Bld) [Vol rate/Area] 120 mL/min/1.73 m2 Normal >=59 [facility] Comment on above: Order Comment: Order added by Discern Expert. Result Comment: Buttonhole Facer lucy kidney disease could be indicated at eGFR's of less than 60 mL/min/1.73m2. Kidney failure is indicated at less than 15 mL/min/1.73m2. Performed By: #### 2 516849, 3673269, 56279646, 25799401, [id number] ####[facility] [id number] [place] [address] PAP [id number] 05-03-2023 C. trachomatis rRNA MAHAD+probe Ql (Cvx) Negative Invalid Interpretation Code Negative [facility] Comment on above: Performed By: #### 3 [id number] ####[facility] [id number] [place] [address] Cytology report Cyto stain Doc (Cvx/Vag) Note Invalid Interpretation Code [facility] Comment on above: Result Comment: TEST S RESULT FLAG UNITS REF RANGE LAB Clinician Provided Cytology InformationSource.............EndocervixNo. of containers..01 ThinPrep VialDIAGNOSIS: 01NEGATIVE FOR INTRAEPITHELIAL LESION OR MALIGNANCY.Specimen adequacy: 01Satisfactory for evaluation. Endocervical and/or squamous metaplasticcells (endocervical component) are present.Performed by: 01Analilia Shea Communications Station Manager (ASCP). 01Note: Note 01The Pap smear is [...] High<-Panic Low,>-Panic High,A-Abnormal,AA-Critical Abnormal -----Performed at:01 [facility] [address]Xrlvra French Walton MD, Performed By: #### 3 [id number] ####[facility] [address] [place] [address] N. gonorrhoeae rRNA MAHAD+probe Ql (Cvx) Negative Invalid Interpretation Code Negative [facility] Comment on above: Result Comment: Perf ormed at: [facility] [address] [id number] MD Anton HinsonPerformed at: =G [facility] [address] [id number] MD Anton Hinson Performed By: #### 3 [id number] ####[facility] [address] [place] [address] C Urineon 05-02-2023 Bacteria identified Cx Nom (U) Normal [facility] Comment on above: Performed By: #### 2 757462 ####[facility] [address] [place] [address] HIV Screen 4th Generation wR fxon 05-01-2023 HIV 1+2 Ab+HIV1 p24 Ag IA Ql Non-Reactive Invalid Interpretation Code Non Reactive [facility] Comment on above: Result Comment: HIV NegativeHIV-1/HIV-2 antibodies and HIV-1 p24 antigen were NOT detected.There is no laboratory evidence of HIV infection.Performed at: [address] [id number] PhD Caroline East Performed By: #### 1 [id number], 56823446, 005998901, 4053343, 4980221 ####[facility] [address] [place] [address] Hep Bs Agon 05-01-2023 HBV surface Ag IA Ql Negative Invalid Interpretation Code Negative [facility] Comment on above: Result Comment: Perf ormed at: [address] [id number] PhD Caroline [place] Performed By: #### 1 [id number], 90456538, 957940550, 6239162, 0674525 ####[address] [place] [address] RPR with Conf Rfxon 05-01-20 23 Reagin Ab RPR Ql (S) Non-Reactive Invalid Interpretation Code Non Reactive [facility] Comment on above: Result Comment: Perf ormed at: [address] [id number] PhD Caroline [place] Performed By: #### 1 [id number], 84122944, 528450602, 1103229, 3338570 ####[address] [place] [address] Rubella IgGon 05-01-2023 Rubella virus IgG Qn (S) [IU]/mL Low Immune >0.99 [facility] Comment on above: Result Comment: Non- immune <0.90Equivocal 0.90 - 0.99Immune >0.99Performed at: [address] [id number] PhD Caroline [place] Performed By: #### 1 52299084, 67696312, 195099168, 8364717, 9173216 ####[facility] [address] [place] [address] ABO/Rhon 04-30-2023 ABO/Rh Positive Invalid Interpretation Code [facility] Comment on above: Performed By: #### 2 350664, 02646279 ####[facility] [address] [place] [address] ABSCon 04-30-2023 ABSC Gel Interp Negative Normal [facility] Comment on above: Performed By: #### 2 274479, 46048241 ####[facility] [address] [place] [address] BLOOD BANKOrdered By: Diamond Juniro on 04-30-2023 ABO/Rh Interp Positive Invalid Interpretation Code [facility] BB Subsection ABSC Gel Interp Negative (04/30/23 9:30 AM) Normal [facility] BB Subsection BhCG Quanton 04-30-2023 [place] [address] m[IU]/mL High 1-3 F [facility] Comment on above: Result Comment: GEST ATIONAL AGE HCG RANGE (mIU/mL) NON- <1-3 0.2-1 WEEKS 5-50 1-2 WEEKS 50-500 2-3 WEEKS 100-5,000 3-4 WEEKS 500-10,000 4-5 WEEKS 1,000-50,000 5-6 WEEKS 10,000-100,000 6-8 WEEKS 15,000-200,000 8-12 WEEKS 10,000-100,000 Performed By: #### 2 646287 ####[facility] [address] [place] [address] CBC w/Indiceson 04-30-2023 Erythrocyte distribution width (RBC) [Ratio] 13.7 % Normal 10.9-14.2 [facility] Comment on above: Performed By: #### 1 [id number], 63634155, 692825771, 0993599, 7630407 ####[facility] [address] [place] [address] Hematocrit (Bld) [Volume fraction] 40.7 % Normal 34.0-46.0 [facility] Comment on above: Performed By: #### 1 06343719, 45324343, 008856079, 8922564, 8072314 ####[address] [place] [address] Hemoglobin (Bld) [Mass/Vol] 13.8 g/dL Normal 12.0-16.0 [facility] Comment on above: Performed By: #### 1 16224993, 05635753, 210253575, 3283132, 1568773 ####[address] [address] MCH (RBC) [Entitic mass] 30.5 pg Normal 27.0-34.0 [facility] Comment on above: Performed By: #### 1 54752309, 05009081, 067149099, 7341744, 9570766 ####[address] [address] MCHC (RBC) [Mass/Vol] 33.9 g/dL Normal 31.4-36.0 [facility] Comment on above: Performed By: #### 1 98709984, 43764324, 554765964, 3486693, 4062623 ####[address] [address] MCV (RBC) [Entitic vol] 89.9 fL Normal 80.0-100.0 [facility] Comment on above: Performed By: #### 1 81842091, 46706306, 616214654, 4309193, 6204492 ####[address] [address] Platelet mean volume (Bld) [Entitic vol] 8.2 fL Normal 6.4-10.8 [facility] Comment on above: Performed By: #### 1 16529640, 79435480, 152558082, 7651255, 9809450 ####[address] [address] Platelets (Bld) [#/Vol] 279.0 E9/L Normal 150.0-500.0 [facility] Comment on above: Performed By: #### 1 28004301, 21050108, 573114194, 9578594, 5366700 ####[facility] [address] [place] [address] RBC (Bld) [#/Vol] 4.5 E12/L Normal 4.3-5.9 [facility] Comment on above: Performed By: #### 1 82493357, 99753514, 592815097, 9870663, 7009544 ####[facility] [address] [place] [address] WBC corrected for nucl RBC Auto (Bld) [#/Vol] 5.8 E9/L Normal 4.0-11.0 [facility] Comment on above: Performed By: #### 1 51095593, 38612977, 452337221, 4125562, 5568329 ####[facility] [address] [place] [address] CHEMISTRYOrdered By: SYSTEM SYSTEM on 04-30-2023 [place] [address] m[IU]/mL High 1 - 3 mIU/mL [facility] Remisol Consent for Treatmenton 04-14 Consent for Treatment [id number]#1.00CD:12 7 Normal [facility] HEMATOLOGYOrdered By: Temi Romero on 04-30-2023 Erythrocyte [...] 8.2 fL Normal 6.4 - 10.8 fL [facility] HemeAutoSS Platelets (Bld) [#/Vol] 279.0 E9/L Normal 150.0 - 500.0 E9/L [facility] HemeAutoSS RBC (Bld) [#/Vol] 4.5 E12/L Normal 4.3 - 5.9 E12/L [facility] HemeAutoSS WBC corrected for nucl RBC Auto (Bld) [#/Vol] 5.8 E9/L Normal 4.0 - 11.0 E9/L [facility] HemeAutoSS PAP [id number] 04-30-2023 Collection Technique BRUSH-SPATULA Normal F [facility] Comment on above: Performed By: #### 3 [id number] ####[facility] [address] [place] [address] Gynecological Body Site ENDOCERVIX Normal [facility] Comment on above: Performed By: #### 3 517048626 ####[facility] [address] [place] [address] Physician Orderon 04-30-2023 Physician Order [id number]#1.00CD:1 27 Normal [facility] Physician Order [id number]#1.00CD:1 27 Normal [facility] BhCG Quanton 04-26-2023 [place] [address] m[IU]/mL High 1-3 F [facility] Comment on above: Result Comment: GEST ATIONAL AGE HCG RANGE (mIU/mL) NON- <1-3 0.2-1 WEEKS 5-50 1-2 WEEKS 50-500 2-3 WEEKS 100-5,000 3-4 WEEKS 500-10,000 4-5 WEEKS 1,000-50,000 5-6 WEEKS 10,000-100,000 6-8 WEEKS 15,000-200,000 8-12 WEEKS 10,000-100,000 Performed By: #### 2 370213 ####[facility] [address] [place] [address] CHEMISTRYOrdered By: SYSTEM SYSTEM on 04-26-2023 [place] [address] m[IU]/mL High 1 - 3 mIU/mL [facility] Remisol Consent for Treatmenton 04-14 Consent for Treatment [id number]#1.00CD:12 7 Normal [facility] Discharge Instructionson Discharge Instructions [id number]#1.00CD:1 27 Normal [facility] ED Clinical Summaryon 2022 ED Clinical Summary Normal [facility] ED Note-Physicianon 04-26-20 ED Note-Physician Normal [facility] Comment on above: Result Comment: Elec tronically Signed By: Jos Ugalde PA-C\.br\Date and Time Signed: 04/26/23 10:59 EDT\.br\Electronically Co-Signed By: Laura Noel M.D.\.br\Date and Time Co-Signed: 04/26/23 11:01 EDT ED Patient Education Noteon 04-26-2023 ED Patient Education Note Normal [facility] ED Patient Summaryon 023 ED Patient Summary Normal [facility] UA With Cult Reflexon 2022 Bilirubin Ql (U) Negative Normal Negative [facility] Comment on above: Performed By: #### 1 [id number] ####[facility] [address] [place] [address] Clarity (U) CLEAR Normal Clear [facility] Comment on above: Performed By: #### 1 6685338 ####[facility] [address] [place] [address] Color (U) YELLOW Normal Yellow [facility] Comment on above: Performed By: #### 1 2714962 ####[facility] [address] [place] [address] Crystals LM Ql (Urine sed) Present Normal [facility] Comment on above: Performed By: #### 1 9926861 ####[facility] [address] [place] [address] Epithelial cells.squamous LM.HPF (Urine sed) [#/Area] 0-2 Normal 0-2 [facility] Comment on above: Performed By: #### 1 8980878 ####[facility] [address] [place] [address] Glucose Test strip (U) [Mass/Vol] Negative Normal Negative [facility] Comment on above: Performed By: #### 1 6143538 ####[facility] [address] [place] [address] Hemoglobin Ql (U) Negative Normal Negative [facility] Comment on above: Performed By: #### 1 1342886 ####[address] [address] Ketones (U) [Mass/Vol] Negative Normal Negative [facility] Comment on above: Performed By: #### 1 7198333 ####[address] [address] [place].plasma/[place] .RBC (Bld) [Mass ratio] 0-3 Normal 0-3 [facility] Comment on above: Performed By: #### 1 9858363 ####[facility] [address] [place] [address] Mucus Ql (Urine sed) 2+ Normal [facility] Comment on above: Performed By: #### 1 7906555 ####[address] [address] Nitrite Ql (U) Negative Normal Negative [facility] Comment on above: Performed By: #### 1 8023592 ####[address] [address] pH (U) 8.5 [pH] Invalid Interpretation Code 5.0-9.0 [facility] Comment on above: Performed By: #### 1 4629166 ####[facility] [address] [place] [address] Protein (U) [Mass/Vol] Negative Normal Negative [facility] Comment on above: Performed By: #### 1 0748591 ####[facility] [address] [place] [address] Specific gravity (U) [Rel density] 1.015 Invalid Interpretation Code 1.005-1.030 [facility] Comment on above: Performed By: #### 1 6335561 ####[facility] [address] [place] [address] Type of Urine collection method Clean Catch Normal [facility] Comment on above: Performed By: #### 1 5767509 ####[facility] [address] [place] [address] Urobilinogen Qn (U) 1.0 {Rola'U}/dL Normal 0.0-1.0 [facility] Comment on above: Performed By: #### 1 9883002 ####[facility] [address] [place] [address] WBC Auto Ql (U) Negative Normal Negative [facility] Comment on above: Performed By: #### 1 1763728 ####[facility] [address] [place] [address] WBC LM.HPF (Urine sed) [#/Area] 0-5 Normal 0-5 [facility] Comment on above: Performed By: #### 1 1285321 ####[facility] [address] [place] [address] URINALYSISOrdered By: An Lassiter on 04-26-2023 Bilirubin Ql (U) Negative (04/26/23 9:15 AM) Normal Negative [facility] Auto SS Clarity (U) Clear (04/26/23 [...] AM) Normal Negative [facility] UA Auto SS [place].plasma/[place] .RBC (Bld) [Mass ratio] 0-3 /HPF Normal [...] Desc Clean Catch (04/26/23 9:15 AM) Normal [facility] UA Auto SS Urobilinogen Qn (U) 1.5981964 {Rola'U}/dL Normal 0.0 - 1.0 EU/dL [facility] UA Auto SS WBC Auto Ql (U) Negative (04/26/23 9:15 AM) Normal Negative [facility] UA Auto SS WBC LM.HPF (Urine sed) [#/Area] 0-5 /HPF Normal 0-5/HPF [facility]A Auto SS US 1st Trimesteron 04-26-2023 US 1st Trimester Normal [facility] US Transvaginalon 04-26-2023 US Transvaginal Normal [facility] Coding Summary.on 02-02-2023 Coding Summary. Normal [facility] Auto Diffon 01-31-2023 Basophils/100 WBC (Bld) 0.3 % Normal 0.0-2.0 [facility] Comment on above: Order Comment: Order Added by Discern Expert. Performed By: #### 2 004801, 1053689, 70473379, 1153136 ####[address] [place] [address] Basophils/Leukocytes Auto (Bld) [Pure # fraction] 0.0 E9/L Normal 0.0-0.2 [facility] Comment on above: Order Comment: Order Added by Discern Expert. Performed By: #### 2 998127, 3869643, 86880039, 0240223 ####[address] [address] Eosinophils/100 WBC (Bld) 2.8 % Normal 0.0-8.0 [facility] Comment on above: Order Comment: Order Added by Discern Expert. Performed By: #### 2 454475, 1794601, 54397849, 0614872 ####[address] [address] Eosinophils/Leukocytes Auto (Bld) [Pure # fraction] 0.1 E9/L Normal 0.0-0.5 [facility] Comment on above: Order Comment: Order Added by Discern Expert. Performed By: #### 2 903576, 9877894, 75795597, 0211822 ####[address] [address] Lymphocytes/100 WBC (Bld) 30.0 % Normal 14.0-50.0 [facility] Comment on above: Order Comment: Order Added by Discern Expert. Performed By: #### 2 552455, 1074683, 21971988, 0615600 ####[address] [address] Lymphocytes/Leukocytes Auto (Bld) [Pure # fraction] 1.5 E9/L Normal 1.0-4.0 [facility] Comment on above: Order Comment: Order Added by Discern Expert. Performed By: #### 2 455664, 4958680, 85030439, 1877234 ####[address] [address] Monocytes/100 WBC (Bld) 7.0 % Normal 4.0-14.0 [facility] Comment on above: Order Comment: Order Added by Discern Expert. Performed By: #### 2 726131, 4037913, 21044252, 5856810 ####[facility] [address] [place] [address] Monocytes/Leukocytes Auto (Bld) [Pure # fraction] 0.4 E9/L Normal 0.2-1.0 [facility] Comment on above: Order Comment: Order Added by Discern Expert. Performed By: #### 2 954568, 7309413, 98810415, 5775994 ####[address] [address] Neutrophils/100 WBC (Bld) 59.9 % Normal 36.0-75.0 [facility] Comment on above: Order Comment: Order Added by Gisselle Expert. Performed By: #### 2 410155, 8428404, 63685107, 5260815 ####[address] [address] Neutrophils/Leukocytes Auto (Bld) [Pure # fraction] 3.1 E9/L Normal 2.0-7.5 [facility] Comment on above: Order Comment: Order Added by Gisselle Expert. Performed By: #### 2 575326, 8435553, 43528716, 5108076 ####[facility] [address] [place] [address] B hCG Qualon 01-31-2023 Beta hCG Ql Negative Normal [facility] Comment on above: Performed By: #### 2 9064220, 99453597 ####[facility] [address] [place] [address] BMPon 01-31-2023 Creatinine [Mass/Vol] 0.8 mg/dL Normal 0.5-1.3 [facility] Comment on above: Performed By: #### 2 415709, 0571051, 23785772, 0191419 ####[facility] [address] [place] [address] Urea nitrogen [Mass/Vol] 9 mg/dL Normal 5-21 [facility] Comment on above: Performed By: #### 2 183772, 1661423, 33050216, 1144889 ####[facility] [address] [place] [address] Urea nitrogen/Creatinine [Mass ratio] 11 No Units Normal 10-20 [facility] Comment on above: Performed By: #### 2 853622, 3135058, 67355984, 4907013 ####[facility] [address] [place] [address] Anion gap [Moles/Vol] 12 mmol/L Normal 6-16 [facility] Comment on above: Performed By: #### 2 581351, 4673429, 44028104, 3950940 ####[facility] [address] [place] [address] Calcium [Mass/Vol] 9.1 mg/dL Normal 8.9-11.1 [facility] Comment on above: Performed By: #### 2 595996, 6442874, 67345291, 6232153 ####[facility] [address] [place] [address] Chloride [Moles/Vol] 104 mmol/L Normal 101-111 [facility] Comment on above: Performed By: #### 2 036712, 7719320, 47083784, 8519351 ####[facility] [address] [place] [address] CO2 [Moles/Vol] 23 mmol/L Normal 21-31 [facility] Comment on above: Performed By: #### 2 552538, 9682878, 74229902, 3665179 ####[facility] [address] [place] [address] Glucose [Mass/Vol] 84 mg/dL Normal 55-199 [facility] Comment on above: Result Comment: If t his glucose result represents a fasting glucose, interpretation should refer to the following reference range: 55-99 mg/dL Performed By: #### 2 570036, 1470406, 10850636, 6108504 ####[facility] [address] [place] [address] Potassium [Moles/Vol] 3.5 mmol/L Normal 3.5-5.3 [facility] Comment on above: Performed By: #### 2 746786, 7941606, 29768626, 8307021 ####[facility] [address] [place] [address] Sodium [Moles/Vol] 135 mmol/L Normal 135-145 [facility] Comment on above: Performed By: #### 2 477241, 3593119, 71523579, 6640971 ####[facility] [address] [place] [address] CBC w/ Auto Diffon Erythrocyte distribution width (RBC) [Ratio] 12.9 % Normal 10.9-14.2 [facility] Comment on above: Performed By: #### 2 278617, 5604936, 89527592, 2082336 ####[address] [address] Hematocrit (Bld) [Volume fraction] 46.4 % High 34.0-46.0 [facility] Comment on above: Performed By: #### 2 145566, 5411785, 18726088, 8344612 ####[facility] [address] [place] [address] Hemoglobin (Bld) [Mass/Vol] 15.0 g/dL Normal 12.0-16.0 [facility] Comment on above: Performed By: #### 2 002882, 5362105, 90734942, 1072402 ####[facility] [address] [place] [address] MCH (RBC) [Entitic mass] 28.6 pg Normal 27.0-34.0 [facility] Comment on above: Performed By: #### 2 599494, 5543456, 33541489, 9703780 ####[address] [address] MCHC (RBC) [Mass/Vol] 32.3 g/dL Normal 31.4-36.0 [facility] Comment on above: Performed By: #### 2 677258, 1966958, 07460150, 3514593 ####[address] [place] [address] MCV (RBC) [Entitic vol] 88.5 fL Normal 80.0-100.0 [facility] Comment on above: Performed By: #### 2 545179, 7137491, 12565093, 8054262 ####[address] [address] Platelet mean volume (Bld) [Entitic vol] 7.9 fL Normal 6.4-10.8 [facility] Comment on above: Performed By: #### 2 872750, 0430977, 35468856, 4646987 ####[address] [address] Platelets (Bld) [#/Vol] 300.0 E9/L Normal 150.0-500.0 [facility] Comment on above: Performed By: #### 2 969979, 6358164, 90922647, 5611780 ####[place] [address] RBC (Bld) [#/Vol] 5.2 E12/L Normal 4.3-5.9 [facility] Comment on above: Performed By: #### 2 845035, 0510960, 19004722, 7028306 ####[address] [address] WBC corrected for nucl RBC Auto (Bld) [#/Vol] 5.1 E9/L Normal 4.0-11.0 [facility] Comment on above: Performed By: #### 2 246286, 7041499, 89723659, 8449584 ####[address] [address] CHEMISTRYOrdered By: SYSTEM SYSTEM on 01-31-2023 Anion [...] Normal >=59mL/min/ 1.73 m2 FT Chem S Glucose [Mass/Vol] 84 mg/dL Normal 55 - 199 mg/dL [facility] Remisol Potassium [Moles/Vol] 3.5 mmol/L Normal 3.5 - 5.3 mmol/L [facility] Remisol Sodium [Moles/Vol] 135 mmol/L Normal 135 - 145 mmol/L [facility] Remisol Urea nitrogen [Mass/Vol] 9 mg/dL Normal 5 - 21 mg/dL [facility] Remisol Urea nitrogen/Creatinine [Mass ratio] 11 mg/mg Normal 10 - 20 [facility] Remisol COAGULATIONOrdered By: Disha Mccarty on 01-31-2023 aPTT Coag (PPP) [Time] 31.3 s Normal 25.1 - 36.5 second(s) [facility] Auto Coag INR Coag (PPP) [Relative time] 1.1 {INR} Invalid Interpretation Code [facility] Auto Coag PT Coag (PPP) [Time] 12.3 s Normal 9.4 - 1 2.5 second(s) [facility] Auto Coag CTA Headon 01-31-2023 CTA Head Normal [facility] Consent for Treatmenton 01-13 Consent for Treatment [id number]#1.00CD:12 7 Normal [facility] Discharge Instructionson Discharge Instructions [id number]#1.00CD:1 27 Normal [facility] ED Clinical Summaryon 2022 ED Clinical Summary Normal [facility] ED Note-Physicianon 02-01-20 ED Note-Physician Normal [facility] Comment on above: Result Comment: Elec tronically Signed By: Kristian Guillermo DO\Date and Time Signed: 01/31/23 14:00 EDT ED Patient Education Noteon 01-31-2023 ED Patient Education Note Normal [facility] ED Patient Summaryon 023 ED Patient Summary Normal [facility] HEMATOLOGYOrdered By: SYSTEM SYSTEM on 01-31-2023 Basophils/100 [...] Coag (PPP) [Time] 31.3 second(s) Normal 25.1-36.5 [facility] Comment on above: Result Comment: Para meter [...] the same coagulation reagent and instrumentation as [facility]. Currently there are no coagulation studies available worldwide for children to 14 days, and no normal ranges. Heparin therapeutic range (represented by Anti-Factor Xa activity of 0.2 - 0.4 U/mL) corresponds to PTT of 56.6 - 109.0 sec. Performed By: #### 2 2517700, 28570278 ####[facility] [address] [place] [address] INR Coag (PPP) [Relative time] 1.1 {INR} Invalid Interpretation Code [facility] Comment on above: Result Comment: INR results are specifically intended to assess patients stabilized on long-term Anticoagulation therapy suggested INR?s ?Less Intensive Anticoagulation? 2.0 ? 3.0Conventional Range 3.0 ? 4.5 Performed By: #### 2 5237833, 95203326 ####[address] [place] [address] PT Coag (PPP) [Time] 12.3 second(s) Normal 9.4-12.5 [facility] Comment on above: Result Comment: 15 d [...] the same coagulation reagent and instrumentation as [facility]. Currently there are no coagulation studies available worldwide for children to 14 days, and no normal ranges. Performed By: #### 2 9903308, 18539845 ####[facility] [address] [place] [address] Pre-Arrival Noteon Pre-Arrival Note Normal [facility] SEROLOGYOrdered By: Nova Mccarty on 01-31-2023 Beta hCG Ql Negative (01/31/23 10:14 AM) Normal [facility] Man Sero eGFRon 01-31-2023 GFR/1.73 sq M.predicted among blacks MDRD (S/P/Bld) [Vol rate/Area] mL/min/{1.73_m2} Normal >=59 [facility] Comment on above: Order Comment: Order added by Discern Expert. Result Comment: eGFR is race adjusted. AA=. Performed By: #### 2 896555, 1631985, 71206602, 8474593 ####[facility] [address] [place] [address] GFR/1.73 sq M.predicted among non-blacks MDRD (S/P/Bld) [Vol rate/Area] mL/min/{1.73_m2} Normal >=59 [facility] Comment on above: Order Comment: Order added by Discern Expert. Result Comment: Buttonhole Facer lucy kidney disease could be indicated at eGFR's of less than 60 mL/min/1.73m2. Kidney failure is indicated at less than 15 mL/min/1.73m2. Performed By: #### 2 617470, 3122367, 92765613, 4828708 ####[facility] [address] [place] [address] Nursing Assessmenton 023 Nursing Assessment [id number]#[id number]:1 27 Normal [facility] Coding Summary.on 10-02-2022 Coding Summary. Normal [facility] Coding Summary. Normal [facility] Delivery Summaryon Delivery Summary Normal [facility] Comment on above: Result Comment: Elec tronically Signed By: Fabiana MARION, Luis Carlos Byrd\.medina\Date and Time Signed: 09/29/22 09:25 EST General Message Officeon General Message Office Normal [facility] Insurance Correspondence Off iceon 09-28-2022 Insurance Correspondence Office [id number]#1.00CD:1 27 Normal [facility] Discharge Instructionson Discharge Instructions [id number]#1.00CD:12 7 Normal [facility] Inpatient Clinical Summaryon 09-27-2022 Inpatient Clinical Summary Normal [facility] Inpatient Patient Summaryon 09-27-2022 Inpatient Patient Summary Normal [facility] CBC w/Indiceson 09-26-2022 Erythrocyte distribution width (RBC) [Ratio] 13.1 % Normal 10.9-14.2 [facility] Comment on above: Performed By: #### 2 865791 ####[facility] [address] [place] [address] Hematocrit (Bld) [Volume fraction] 32.1 % Low 34.0-46.0 [facility] Comment on above: Performed By: #### 2 940158 ####[facility] [address] [place] [address] Hemoglobin (Bld) [Mass/Vol] 11.1 g/dL Low 12.0-16.0 [facility] Comment on above: Performed By: #### 2 [id number] ####[facility] [address] [place] [address] MCH (RBC) [Entitic mass] 30.9 pg Normal 27.0-34.0 [facility] Comment on above: Performed By: #### 2 141018 ####[facility] [address] [place] [address] MCHC (RBC) [Mass/Vol] 34.5 g/dL Normal 31.4-36.0 [facility] Comment on above: Performed By: #### 2 481660 ####[facility] [address] [place] [address] MCV (RBC) [Entitic vol] 89.7 fL Normal 80.0-100.0 [facility] Comment on above: Performed By: #### 2 720843 ####[facility] [address] [place] [address] Platelet mean volume (Bld) [Entitic vol] 10.1 fL Normal 6.4-10.8 [facility] Comment on above: Performed By: #### 2 419900 ####[facility] [address] [place] [address] Platelets (Bld) [#/Vol] 204.0 E9/L Normal 150.0-500.0 [facility] Comment on above: Performed By: #### 2 178794 ####[address] [place] [address] RBC (Bld) [#/Vol] 3.6 E12/L Low 4.3-5.9 [facility] Comment on above: Performed By: #### 2 739296 ####[address] [place] [address] WBC corrected for nucl RBC Auto (Bld) [#/Vol] 23.2 E9/L High 4.0-11.0 [facility] Comment on above: Performed By: #### 2 657196 ####[facility] [address] [place] [address] Nursing Assessmenton 022 Nursing Assessment [id number]#1.00CD:12 7 [facility] Progress Note-Physicianon Progress Note-Physician [facility] Comment on above: Result Comment: Elec tronically Signed By: Fabiana MARION, Luis Carlos Pope.br\Date and Time Signed: 09/26/22 08:19 EST Coding Summary.on 09-25-2022 Coding Summary. Normal [facility] Coding Summary. [facility] Consenton 09-25-2022 Consent [id number]#1.00CD:1 27 [facility] Consent for Anesthesiaon Consent for Anesthesia [id number]#1.00CD:12 7 [facility] Discharge Instructionson Discharge Instructions [id number]#1.00CD:1 27 Normal [facility] Help Me Grow Referralon 09-14 Help Me Grow Referral [id number]#1.00CD:12 7 Normal [facility] Recordson Records [id number]#1.00CD:12 7 Normal [facility] Progress Note-Physicianon Progress Note-Physician Normal [facility] Comment on above: Result Comment: Elec tronically Signed By: Jimmy Corcoran Jr., DO\.br\Date and Time Signed: 09/25/22 08:31 EST Progress Note-Physician Normal [facility] Comment on above: Result Comment: Elec tronically Signed By: Jimmy Corcoran Jr., DO\.br\Date and Time Signed: 09/25/22 08:31 EST UA With Cult Reflexon 2021 Bilirubin Ql (U) Negative Normal Negative [facility] Comment on above: Order Comment: Urina ry Catheter Insertion triggered Urinalysis With Culture Reflex order by discern. Performed By: #### 1 6680075 ####[facility] [address] [place] [address] Clarity (U) CLEAR Normal Clear [facility] Comment on above: Order Comment: Urina ry Catheter Insertion triggered Urinalysis With Culture Reflex order by discern. Performed By: #### 1 [id number] ####[place] [address] Color (U) YELLOW Normal Yellow [facility] Comment on above: Order Comment: Urina ry Catheter Insertion triggered Urinalysis With Culture Reflex order by discern. Performed By: #### 1 8409829 ####[place] [address] Epithelial cells.squamous LM.HPF (Urine sed) [#/Area] 0-2 Normal 0-2 [facility] Comment on above: Order Comment: Urina ry Catheter Insertion triggered Urinalysis With Culture Reflex order by discern. Performed By: #### 1 [id number] ####[facility] [address] [place] [address] Glucose Test strip (U) [Mass/Vol] Negative Normal Negative [facility] Comment on above: Order Comment: Urina ry Catheter Insertion triggered Urinalysis With Culture Reflex order by discern. Performed By: #### 1 4369088 ####[facility] [address] [place] [address] Hemoglobin Ql (U) Negative Normal Negative [facility] Comment on above: Order Comment: Urina ry Catheter Insertion triggered Urinalysis With Culture Reflex order by discern. Performed By: #### 1 2379581 ####[facility] [address] [place] [address] Ketones (U) [Mass/Vol] Negative Normal Negative [facility] Comment on above: Order Comment: Urina ry Catheter Insertion triggered Urinalysis With Culture Reflex order by discern. Performed By: #### 1 6936739 ####[facility] [address] [place] [address] [place].plasma/[place] .RBC (Bld) [Mass ratio] 0-3 Normal 0-3 [facility] Comment on above: Order Comment: Urina ry Catheter Insertion triggered Urinalysis With Culture Reflex order by discern. Performed By: #### 1 5140027 ####[facility] [address] [place] [address] Nitrite Ql (U) Negative Normal Negative [facility] Comment on above: Order Comment: Urina ry Catheter Insertion triggered Urinalysis With Culture Reflex order by discern. Performed By: #### 1 8032061 ####[facility] [address] [place] [address] pH (U) 7.0 [pH] Invalid Interpretation Code 5.0-9.0 [facility] Comment on above: Order Comment: Urina ry Catheter Insertion triggered Urinalysis With Culture Reflex order by discern. Performed By: #### 1 [id number] ####[facility] [address] [place] [address] Protein (U) [Mass/Vol] Negative Normal Negative [facility] Comment on above: Order Comment: Urina ry Catheter Insertion triggered Urinalysis With Culture Reflex order by discern. Performed By: #### 1 5528849 ####[place] [address] Specific gravity (U) [Rel density] <=1.005 Invalid Interpretation Code 1.005-1.030 [facility] Comment on above: Order Comment: Urina ry Catheter Insertion triggered Urinalysis With Culture Reflex order by discern. Performed By: #### 1 [id number] ####[place] [address] Type of Urine collection method Vyas Normal [facility] Comment on above: Order Comment: Urina ry Catheter Insertion triggered Urinalysis With Culture Reflex order by discern. Performed By: #### 1 9286802 ####[place] [address] Urobilinogen Qn (U) 0.2 {Rola'U}/dL Normal 0.0-1.0 [facility] Comment on above: Order Comment: Urina ry Catheter Insertion triggered Urinalysis With Culture Reflex order by discern. Performed By: #### 1 8183452 ####[place] [address] WBC Auto Ql (U) Negative Normal Negative [facility] Comment on above: Order Comment: Urina ry Catheter Insertion triggered Urinalysis With Culture Reflex order by discern. Performed By: #### 1 0282062 ####[place] [address] WBC LM.HPF (Urine sed) [#/Area] 0-5 Normal 0-5 [facility] Comment on above: Order Comment: Urina ry Catheter Insertion triggered Urinalysis With Culture Reflex order by discern. Performed By: #### 1 6051478 ####[address] [address] Bilirubin Ql (U) Negative Normal Negative [facility] Comment on above: Performed By: #### 1 1395881 ####[address] [place] [address] Clarity (U) CLEAR Normal Clear [facility] Comment on above: Performed By: #### 1 8138255 ####[address] [address] Color (U) YELLOW Normal Yellow [facility] Comment on above: Performed By: #### 1 5761793 ####[address] [address] Epithelial cells.squamous LM.HPF (Urine sed) [#/Area] 0-2 Normal 0-2 [facility] Comment on above: Performed By: #### 1 6886513 ####[address] [address] Glucose Test strip (U) [Mass/Vol] Negative Normal Negative [facility] Comment on above: Performed By: #### 1 5128612 ####[address] [address] Hemoglobin Ql (U) Negative Normal Negative [facility] Comment on above: Performed By: #### 1 7962622 ####[address] [address] Ketones (U) [Mass/Vol] Negative Normal Negative [facility] Comment on above: Performed By: #### 1 6722803 ####[address] [address] [place].plasma/[place] .RBC (Bld) [Mass ratio] 0-3 Normal 0-3 [facility] Comment on above: Performed By: #### 1 9626105 ####[address] [place] [address] Nitrite Ql (U) Negative Normal Negative [facility] Comment on above: Performed By: #### 1 4019348 ####[address] [address] pH (U) 6.0 [pH] Invalid Interpretation Code 5.0-9.0 [facility] Comment on above: Performed By: #### 1 9529632 ####[address] [place] [address] Protein (U) [Mass/Vol] Negative Normal Negative [facility] Comment on above: Performed By: #### 1 7183743 ####[place] [address] Specific gravity (U) [Rel density] <=1.005 Invalid Interpretation Code 1.005-1.030 [facility] Comment on above: Performed By: #### 1 3398536 ####[place] [address] Type of Urine collection method Clean Catch Normal [facility] Comment on above: Performed By: #### 1 1682590 ####[place] [address] Urobilinogen Qn (U) 0.2 {Rola'U}/dL Normal 0.0-1.0 [facility] Comment on above: Performed By: #### 1 9547050 ####[place] [address] WBC Auto Ql (U) Negative Normal Negative [facility] Comment on above: Performed By: #### 1 2772985 ####[place] [address] WBC LM.HPF (Urine sed) [#/Area] 0-5 Normal 0-5 [facility] Comment on above: Performed By: #### 1 5678485 ####[address] [address] Vaccinationson 09-25-2022 Vaccinations [id number]#1.00CD:1 27 Normal [facility] Vaccinations [id number]#1.00CD:1 27 Normal [facility] ABO/Rhon 09-24-2022 ABO/Rh Positive Invalid Interpretation Code [facility] Comment on above: Performed By: #### 1 [id number], [id number], [id number], 5205775 ####[facility] [address] [place] [address] ABO/Rh History Checkon 09-24 ABO/Rh History Check Verified Hx Blood Type Normal [facility] Comment on above: Performed By: #### 1 2521682, 14991395, 51874788, 2004578 ####[facility] [address] [place] [address] ABSCon 09-24-2022 ABSC Gel Interp Negative Normal [facility] Comment on above: Performed By: #### 1 0660570, [id number], 48890561, 6115672 ####[facility] [address] [place] [address] Blood Bank ID#on 09-24-2022 BBID# [id number] Invalid Interpretation Code [facility] Comment on above: Performed By: #### 1 4491052, [id number], [id number], 9409107 ####[facility] [address] [place] [address] CBC w/Indiceson 09-24-2022 Erythrocyte distribution width (RBC) [Ratio] 13.0 % Normal 10.9-14.2 [facility] Comment on above: Performed By: #### 2 706393 ####[address] [address] Hematocrit (Bld) [Volume fraction] 38.0 % Normal 34.0-46.0 [facility] Comment on above: Performed By: #### 2 773385 ####[facility] [address] [place] [address] Hemoglobin (Bld) [Mass/Vol] 12.8 g/dL Normal 12.0-16.0 [facility] Comment on above: Performed By: #### 2 713613 ####[facility] [address] [place] [address] MCH (RBC) [Entitic mass] 31.3 pg Normal 27.0-34.0 [facility] Comment on above: Performed By: #### 2 601621 ####[facility] [address] [place] [address] MCHC (RBC) [Mass/Vol] 33.7 g/dL Normal 31.4-36.0 [facility] Comment on above: Performed By: #### 2 040972 ####[address] [address] MCV (RBC) [Entitic vol] 92.9 fL Normal 80.0-100.0 [facility] Comment on above: Performed By: #### 2 696722 ####[address] [address] Platelet mean volume (Bld) [Entitic vol] 9.8 fL Normal 6.4-10.8 [facility] Comment on above: Performed By: #### 2 422279 ####[address] [address] Platelets (Bld) [#/Vol] 238.0 E9/L Normal 150.0-500.0 [facility] Comment on above: Performed By: #### 2 717974 ####[address] [address] RBC (Bld) [#/Vol] 4.1 E12/L Low 4.3-5.9 [facility] Comment on above: Performed By: #### 2 054644 ####[address] [address] WBC corrected for nucl RBC Auto (Bld) [#/Vol] 12.8 E9/L High 4.0-11.0 [facility] Comment on above: Performed By: #### 2 832493 ####[address] [address] Consent for Treatmenton 09-14 Consent for Treatment [id number]#1.00CD:12 7 Normal [facility] Consent for Treatment [id number]#1.00CD:1 27 [facility] Consent for Treatmenton Consent for Treatment [id number]#1.00CD:12 7 [facility] Discharge Instructionson Discharge Instructions [id number]#1.00CD:12 7 [facility] Inpatient Clinical Summaryon 09-22-2022 Inpatient Clinical Summary [facility] Inpatient Patient Summaryon 09-22-2022 Inpatient Patient Summary [facility] Insurance Correspondence Off ice09-22-2022 Insurance Correspondence Office [id number]#1.00CD: 127 [facility] Nursing Assessmenton 022 Nursing Assessment [id number]#1.00CD:1 27 [facility] Nursing Assessment [id number]#1.00CD:12 7 [facility] Discharge Instructionson Discharge Instructions [id number]#1.00CD:127 [facility] Inpatient Clinical Summaryon 09-20-2022 Inpatient Clinical Summary [facility] Inpatient Patient Summaryon 09-20-2022 Inpatient Patient Summary [facility] Insurance Correspondence Off ice09-20-2022 Insurance Correspondence Office [id number]#1.00CD:127 [facility] Consent for Treatmenton Consent for Treatment [id number]#1.00CD:12 7 [facility] Discharge Instructionson Discharge Instructions [id number]#1.00CD:1 27 [facility] Inpatient Clinical Summaryon 09-19-2022 Inpatient Clinical Summary Normal [facility] Inpatient Patient Summaryon 09-19-2022 Inpatient Patient Summary Normal [facility] Insurance Correspondenceon 1 11-20-2021 Insurance Correspondence [id number]#1.00CD:1 27 Normal [facility] UA With Cult Reflexon 2021 Bilirubin Ql (U) Negative Normal Negative [facility] Comment on above: Performed By: #### 1 [id number] ####[facility] [address] [place] [address] Clarity (U) CLEAR Normal Clear [facility] Comment on above: Performed By: #### 1 8246946 ####[facility] [address] [place] [address] Color (U) YELLOW Normal Yellow [facility] Comment on above: Performed By: #### 1 3927026 ####[address] [address] Epithelial cells.squamous LM.HPF (Urine sed) [#/Area] 0-2 Normal 0-2 [facility] Comment on above: Performed By: #### 1 9172694 ####[facility] [address] [place] [address] Glucose Test strip (U) [Mass/Vol] Negative Normal Negative [facility] Comment on above: Performed By: #### 1 9940721 ####[facility] [address] [place] [address] Hemoglobin Ql (U) Negative Normal Negative [facility] Comment on above: Performed By: #### 1 6451615 ####[facility] [address] [place] [address] Ketones (U) [Mass/Vol] Negative Normal Negative [facility] Comment on above: Performed By: #### 1 1120797 ####[facility] [address] [place] [address] [place].plasma/[place] .RBC (Bld) [Mass ratio] 0-3 Normal 0-3 [facility] Comment on above: Performed By: #### 1 8852517 ####[address] [address] Nitrite Ql (U) Negative Normal Negative [facility] Comment on above: Performed By: #### 1 4942923 ####[address] [address] pH (U) 7.0 [pH] Invalid Interpretation Code 5.0-9.0 [facility] Comment on above: Performed By: #### 1 5449627 ####[address] [address] Protein (U) [Mass/Vol] Negative Normal Negative [facility] Comment on above: Performed By: #### 1 0446343 ####[address] [address] Specific gravity (U) [Rel density] <=1.005 Invalid Interpretation Code 1.005-1.030 [facility] Comment on above: Performed By: #### 1 2629615 ####[address] [address] Type of Urine collection method Clean Catch Normal [facility] Comment on above: Performed By: #### 1 4511858 ####[address] [address] Urobilinogen Qn (U) 0.2 {Rola'U}/dL Normal 0.0-1.0 [facility] Comment on above: Performed By: #### 1 0331589 ####[address] [address] WBC Auto Ql (U) Negative Normal Negative [facility] Comment on above: Performed By: #### 1 3614940 ####[address] [address] WBC LM.HPF (Urine sed) [#/Area] 0-5 Normal 0-5 [facility] Comment on above: Performed By: #### 1 5337062 ####[address] [place] [address] URINALYSISOrdered By: Jeanette Castle on 09-19-2022 Bilirubin [...] AM) Normal Negative [facility] UA Auto SS [place].plasma/[place] .RBC (Bld) [Mass ratio] 0-3 /HPF Normal [...] [facility] UA Auto SS Urobilinogen Qn (U) 0.5343364 {Rola'U}/dL Normal 0.0 - 1.0 EU/dL [facility] UA Auto SS WBC Auto Ql (U) Negative (09/19/22 1:44 AM) Normal Negative [facility] UA Auto SS WBC LM.HPF (Urine sed) [#/Area] 0-5 /HPF Normal 0-5/HPF [facility] UA Auto SS Coding Summary.on 09-18-2022 Coding Summary. Normal [facility] Nursing Assessmenton 022 Nursing Assessment [id number]#1.00CD:12 7 Normal [facility] Coding Summary.on 09-15-2022 Coding Summary. Normal [facility] Coding Summary.on 09-14-2022 Coding Summary. Normal [facility] Consent for Treatmenton Consent for Treatment [id number]#1.00CD:12 7 [facility] Consent for Treatment [id number]#1.00CD:12 7 [facility] Discharge Instructionson Discharge Instructions [id number]#1.00CD:12 7 [facility] Inpatient Clinical Summaryon 09-14-2022 Inpatient Clinical Summary Normal [facility] Inpatient Patient Summaryon 09-14-2022 Inpatient Patient Summary [facility] Insurance Correspondence Off iceon 09-14-2022 Insurance Correspondence Office [id number]#1.00CD:12 7 [facility] Nursing Assessmenton Nursing Assessment [id number]#1.00CD:1 27 Normal [facility] UA With Cult Reflexon 2021 Bacteria LM Ql (Urine sed) TRACE Normal Trace [facility] Comment on above: Performed By: #### 1 1974051 ####[facility] [address] [place] [address] Bilirubin Ql (U) Negative Normal Negative [facility] Comment on above: Performed By: #### 1 9331077 ####[facility] [address] [place] [address] Clarity (U) CLEAR Normal Clear [facility] Comment on above: Performed By: #### 1 0284437 ####[facility] [address] [place] [address] Color (U) YELLOW Normal Yellow [facility] Comment on above: Performed By: #### 1 0401042 ####[facility] [address] [place] [address] Crystals LM Ql (Urine sed) Present Normal [facility] Comment on above: Performed By: #### 1 4814838 ####[address] [address] Epithelial cells.squamous LM.HPF (Urine sed) [#/Area] 0-2 Normal 0-2 [facility] Comment on above: Performed By: #### 1 3337364 ####[address] [address] Glucose Test strip (U) [Mass/Vol] Negative Normal Negative [facility] Comment on above: Performed By: #### 1 4878369 ####[address] [address] Hemoglobin Ql (U) Negative Normal Negative [facility] Comment on above: Performed By: #### 1 7262057 ####[facility] [address] [place] [address] Ketones (U) [Mass/Vol] Negative Normal Negative [facility] Comment on above: Performed By: #### 1 3869409 ####[address] [address] [place].plasma/[place] .RBC (Bld) [Mass ratio] 0-3 Normal 0-3 [facility] Comment on above: Performed By: #### 1 0875389 ####[facility] [address] [place] [address] Mucus Ql (Urine sed) TRACE Normal [facility] Comment on above: Performed By: #### 1 9117019 ####[facility] [address] [place] [address] Nitrite Ql (U) Negative Normal Negative [facility] Comment on above: Performed By: #### 1 8825319 ####[place] [address] pH (U) 6.0 [pH] Invalid Interpretation Code 5.0-9.0 [facility] Comment on above: Performed By: #### 1 8957946 ####[place] [address] Protein (U) [Mass/Vol] Negative Normal Negative [facility] Comment on above: Performed By: #### 1 5669111 ####[place] [address] Specific gravity (U) [Rel density] <=1.005 Invalid Interpretation Code 1.005-1.030 [facility] Comment on above: Performed By: #### 1 8086177 ####[place] [address] Type of Urine collection method Random Urine Normal [facility] Comment on above: Performed By: #### 1 2438138 ####[place] [address] Urobilinogen Qn (U) 0.2 {Rola'U}/dL Normal 0.0-1.0 [facility] Comment on above: Performed By: #### 1 6653473 ####[place] [address] WBC Auto Ql (U) TRACE Abnormal Negative [facility] Comment on above: Performed By: #### 1 7448082 ####[place] [address] WBC LM.HPF (Urine sed) [#/Area] 0-5 Normal 0-5 [facility] Comment on above: Performed By: #### 1 6852964 ####[address] [address] URINALYSISOrdered By: An Lassiter on 09-14-2022 Bacteria [...] AM) Normal Negative [facility] UA Auto SS [place].plasma/[place] .RBC (Bld) [Mass ratio] 0-3 /HPF Normal [...] Desc Random Urine (09/14/22 9:25 AM) Normal [facility] UA Auto SS Urobilinogen Qn (U) 0.6258727 {Rola'U}/dL Normal 0.0 - 1.0 EU/dL [facility] UA Auto SS WBC Auto Ql (U) Trace *ABN* (09/14/22 9:25 AM) Invalid Interpretation Code Negative [facility] UA Auto SS WBC LM.HPF (Urine sed) [#/Area] 0-5 /HPF Normal 0-5/HPF [facility] UA Auto SS Coding Summary.on 09-12-2022 Coding Summary. Normal [facility] Consent for Treatmenton 08-16 Consent for Treatment [id number]#1.00CD:12 7 Normal [facility] Discharge Instructionson Discharge Instructions [id number]#1.00CD:12 7 [facility] Discharge Instructions [id number]#1.00CD:1 27 [facility] Inpatient Clinical Summaryon 09-12-2022 Inpatient Clinical Summary Normal [facility] Inpatient Patient Summaryon 09-12-2022 Inpatient Patient Summary [facility] Insurance Correspondenceon 11-12-2021 Insurance Correspondence [id number]#1.00CD:12 7 [facility] Insurance Correspondence Off iceon 09-12-2022 Insurance Correspondence Office [id number]#1.00CD:1 27 [facility] Nursing Assessmenton Nursing Assessment [id number]#1.00CD:1 27 [facility] UA With Cult Reflexon 2021 Bilirubin Ql (U) Negative Normal Negative [facility] Comment on above: Performed By: #### 1 [id number] ####[facility] [address] [place] [address] Clarity (U) CLEAR Normal Clear [facility] Comment on above: Performed By: #### 1 [id number] ####[facility] [address] [place] [address] Color (U) YELLOW Normal Yellow [facility] Comment on above: Performed By: #### 1 0804806 ####[facility] [address] [place] [address] Crystals LM Ql (Urine sed) Present Normal [facility] Comment on above: Performed By: #### 1 [id number] ####[address] [place] [address] Epithelial cells.squamous LM.HPF (Urine sed) [#/Area] 3-4 Normal 0-2 [facility] Comment on above: Performed By: #### 1 7486858 ####[facility] [address] [place] [address] Glucose Test strip (U) [Mass/Vol] Negative Normal Negative [facility] Comment on above: Performed By: #### 1 [id number] ####[address] [address] Hemoglobin Ql (U) Negative Normal Negative [facility] Comment on above: Performed By: #### 1 5063734 ####[address] [address] Ketones (U) [Mass/Vol] Negative Normal Negative [facility] Comment on above: Performed By: #### 1 5701001 ####[address] [address] [place].plasma/[place] .RBC (Bld) [Mass ratio] 0-3 Normal 0-3 [facility] Comment on above: Performed By: #### 1 [id number] ####[address] [address] Nitrite Ql (U) Negative Normal Negative [facility] Comment on above: Performed By: #### 1 [id number] ####[address] [address] pH (U) 6.0 [pH] Invalid Interpretation Code 5.0-9.0 [facility] Comment on above: Performed By: #### 1 [id number] ####[address] [address] Protein (U) [Mass/Vol] Negative Normal Negative [facility] Comment on above: Performed By: #### 1 [id number] ####[address] [address] Specific gravity (U) [Rel density] 1.010 Invalid Interpretation Code 1.005-1.030 [facility] Comment on above: Performed By: #### 1 [id number] ####[facility] [address] [place] [address] Type of Urine collection method Clean Catch Normal [facility] Comment on above: Performed By: #### 1 [id number] ####[place] [address] Urobilinogen Qn (U) 0.2 {Rola'U}/dL Normal 0.0-1.0 [facility] Comment on above: Performed By: #### 1 7719634 ####[place] [address] WBC Auto Ql (U) Negative Normal Negative [facility] Comment on above: Performed By: #### 1 5681142 ####[place] [address] WBC LM.HPF (Urine sed) [#/Area] 0-5 Normal 0-5 [facility] Comment on above: Performed By: #### 1 9454937 ####[place] [address] URINALYSISOrdered By: Jose Miguel nelson on 09-12-2022 Bilirubin Ql (U) Negative (09/12/22 8:15 PM) Normal Negative [facility] Auto SS Clarity (U) Clear (09/12/22 8:15 PM) Normal Clear [facility] UA Auto SS Color (U) Yellow (09/12/22 8:15 PM) Normal Yellow [facility] Auto SS Crystals [...] PM) Normal Negative [facility] UA Auto SS [place].plasma/[place] .RBC (Bld) [Mass ratio] 0-3 /HPF Normal [...] Desc Clean Catch (09/12/22 8:15 PM) Normal [facility] Auto SS Urobilinogen Qn (U) 0.1016382 {Rola'U}/dL Normal 0.0 - 1.0 EU/dL [facility] UA Auto SS WBC Auto Ql (U) Negative (09/12/22 8:15 PM) Normal Negative [facility] UA Auto SS WBC LM.HPF (Urine sed) [#/Area] 0-5 /HPF Normal 0-5/HPF [facility] UA Auto SS Coding Summary.on 09-11-2022 Coding Summary. Normal [facility] Consent for Treatmenton 08-16 Consent for Treatment [id number]#1.00CD:12 7 Normal [facility] Discharge Instructionson Discharge Instructions [id number]#[id number]:1 27 Normal [facility] Inpatient Clinical Summaryon 09-08-2022 Inpatient Clinical Summary Normal [facility] Inpatient Patient Summaryon 09-08-2022 Inpatient Patient Summary Normal [facility] Coding Summary.on 09-06-2022 Coding Summary. Normal [facility] Discharge Instructionson Discharge Instructions [id number]#1.00CD:1 27 Normal [facility] ED Clinical Summaryon 2021 ED Clinical Summary Normal [facility] ED Note-Nursingon 09-06-2022 ED Note-Nursing pt given d/c instruc tions and educated on importance of follow up. pt educated on new medications. pt verbalized understanding of instructions and readiness for d/c. pt walked self ambulatory to waiting room in stable condition Normal [facility] ED Patient Education Noteon 09-06-2022 ED Patient Education Note Normal [facility] ED Patient Summaryon 022 ED Patient Summary Normal [facility] XR Chest Single Viewon 09-06 XR Chest Single View Normal [facility] Auto Diffon 09-05-2022 Basophils/100 WBC (Bld) 1.0 % Normal 0.0-2.0 [facility] Comment on above: Order Comment: Order Added by Discern Expert. Performed By: #### 2 639603, 16047748, 95878286, 7018938, 53863952, 36480435, 8101993 ####[facility] [address] [place] [address] Basophils/Leukocytes Auto (Bld) [Pure # fraction] 0.1 E9/L Normal 0.0-0.2 [facility] Comment on above: Order Comment: Order Added by Discern Expert. Performed By: #### 2 858610, 36182222, 27785285, 3818291, 44853733, 17606274, 0164070 ####[facility] [address] [place] [address] Eosinophils/100 WBC (Bld) 1.4 % Normal 0.0-8.0 [facility] Comment on above: Order Comment: Order Added by Discern Expert. Performed By: #### 2 730581, 28923696, 25552522, 5102923, 29108075, 27474943, 5291698 ####[facility] [address] [place] [address] Eosinophils/Leukocytes Auto (Bld) [Pure # fraction] 0.2 E9/L Normal 0.0-0.5 [facility] Comment on above: Order Comment: Order Added by Gisselle Expert. Performed By: #### 2 979936, 67484626, 14275553, 3568932, 90066293, 06262989, 2862179 ####[facility] [address] [place] [address] Lymphocytes/100 WBC (Bld) 18.8 % Normal 14.0-50.0 [facility] Comment on above: Order Comment: Order Added by Discern Expert. Performed By: #### 2 804074, 10075675, 20225998, 4621900, 09856484, 85219937, 7296925 ####[facility] [address] [place] [address] Lymphocytes/Leukocytes Auto (Bld) [Pure # fraction] 2.0 E9/L Normal 1.0-4.0 [facility] Comment on above: Order Comment: Order Added by Gisselle Expert. Performed By: #### 2 491332, 79028784, 04962852, 5611614, 01734342, 86311966, 5721379 ####[facility] [address] [place] [address] Monocytes/100 WBC (Bld) 6.8 % Normal 4.0-14.0 [facility] Comment on above: Order Comment: Order Added by Gisselle Expert. Performed By: #### 2 936459, 05069897, 20209985, 3363362, 00653078, 29640252, 4427541 ####[facility] [address] [place] [address] Monocytes/Leukocytes Auto (Bld) [Pure # fraction] 0.7 E9/L Normal 0.2-1.0 [facility] Comment on above: Order Comment: Order Added by Gisselle Expert. Performed By: #### 2 735496, 54817771, 09431377, 9147372, 62306147, 13173846, 2707813 ####[address] [place] [address] Neutrophils/100 WBC (Bld) 72.0 % Normal 36.0-75.0 [facility] Comment on above: Order Comment: Order Added by Discern Expert. Performed By: #### 2 579328, 61157537, 98145028, 0734731, 58682186, 27963362, 9715469 ####[facility] [address] [place] [address] Neutrophils/Leukocytes Auto (Bld) [Pure # fraction] 7.8 E9/L High 2.0-7.5 [facility] Comment on above: Order Comment: Order Added by Discern Expert. Performed By: #### 2 728157, 13627421, 40626947, 4874876, 02720334, 66243004, 9077280 ####[facility] [address] [place] [address] BMPon 09-05-2022 Creatinine [Mass/Vol] 0.7 mg/dL Normal 0.5-1.3 [facility] Comment on above: Performed By: #### 2 924350, 77260609, 26388808, 2460592, 48105635, 64620308, 1527316 ####[facility] [address] [place] [address] Urea nitrogen [Mass/Vol] 7 mg/dL Normal 5-21 [facility] Comment on above: Performed By: #### 2 109919, 78742369, 36172745, 5545586, 84581959, 01570741, 6234146 ####[facility] [address] [place] [address] Urea nitrogen/Creatinine [Mass ratio] 10 No Units Normal 10-20 [facility] Comment on above: Performed By: #### 2 730015, 06181151, 43073738, 2030362, 34980101, 07993378, 9954223 ####[facility] [address] [place] [address] Anion gap [Moles/Vol] 10 mmol/L Normal 6-16 [facility] Comment on above: Performed By: #### 2 325928, 36701395, 47253774, 4024840, 75708289, 39413301, 6574766 ####[facility] [address] [place] [address] Calcium [Mass/Vol] 8.8 mg/dL Low 8.9-11.1 [facility] Comment on above: Performed By: #### 2 777013, 74706243, 64743257, 1725090, 72142833, 11759592, 0576866 ####[facility] [address] [place] [address] Chloride [Moles/Vol] 102 mmol/L Normal 101-111 [facility] Comment on above: Performed By: #### 2 467563, 16066919, 48602244, 0219091, 84956129, 37517618, 1642175 ####[facility] [address] [place] [address] CO2 [Moles/Vol] 22 mmol/L Normal 21-31 [facility] Comment on above: Performed By: #### 2 343617, 85847998, 24792203, 8135522, 96630427, 54326805, 2864280 ####[facility] [address] [place] [address] Glucose [Mass/Vol] 87 mg/dL Normal 55-199 [facility] Comment on above: Result Comment: If t his glucose result represents a fasting glucose, interpretation should refer to the following reference range: 55-99 mg/dL Performed By: #### 2 195770, 88116572, 58134112, 6543707, 76524722, 65917196, 6285013 ####[facility] [address] [place] [address] Potassium [Moles/Vol] 3.3 mmol/L Low 3.5-5.3 [facility] Comment on above: Performed By: #### 2 541524, 33139568, 34088529, 5851067, 49606611, 10847714, 3125422 ####[facility] [address] [place] [address] Sodium [Moles/Vol] 131 mmol/L Low 135-145 [facility] Comment on above: Performed By: #### 2 483011, 47481277, 32438848, 9566049, 06313131, 32826089, 0252661 ####[facility] [address] [place] [address] BNPon 09-05-2022 Int Ctr BNP Pass Normal [facility] Comment on above: Performed By: #### 2 476374, 11086863, 36302390, 5770180, 07805451, 86171537, 5871961 ####[facility] [address] [place] [address] Natriuretic peptide B (Bld) [Mass/Vol] 8 pg/mL Normal 5-80 [facility] Comment on above: Performed By: #### 2 916209, 07093312, 11187095, 3729340, 93020852, 39343347, 6366162 ####[facility] [address] [place] [address] CBC w/ Auto Diffon Erythrocyte distribution width (RBC) [Ratio] 12.7 % Normal 10.9-14.2 [facility] Comment on above: Performed By: #### 2 622292, 95368435, 16301728, 9876728, 51297301, 18432052, 9974449 ####[facility] [address] [place] [address] Hematocrit (Bld) [Volume fraction] 34.2 % Normal 34.0-46.0 [facility] Comment on above: Performed By: #### 2 765252, 77371053, 55375008, 2631992, 09695507, 89170165, 5470011 ####[facility] [address] [place] [address] Hemoglobin (Bld) [Mass/Vol] 12.3 g/dL Normal 12.0-16.0 [facility] Comment on above: Performed By: #### 2 065760, 98277207, 24690391, 1724665, 69073380, 52308626, 2033784 ####[facility] [address] [place] [address] MCH (RBC) [Entitic mass] 31.8 pg Normal 27.0-34.0 [facility] Comment on above: Performed By: #### 2 948010, 86011639, 46236980, 2091948, 04628991, 09977246, 4484922 ####[facility] [address] [place] [address] MCHC (RBC) [Mass/Vol] 35.9 g/dL Normal 31.4-36.0 [facility] Comment on above: Performed By: #### 2 429069, 39809598, 19659594, 7601819, 52705258, 79120044, 9534850 ####[address] [address] MCV (RBC) [Entitic vol] 88.7 fL Normal 80.0-100.0 [facility] Comment on above: Performed By: #### 2 058751, 26648225, 09775584, 9688737, 27123826, 28891922, 5702801 ####[address] [address] Platelet mean volume (Bld) [Entitic vol] 9.8 fL Normal 6.4-10.8 [facility] Comment on above: Performed By: #### 2 388264, 22655521, 26112448, 0293593, 99424525, 46133518, 2548336 ####[address] [address] Platelets (Bld) [#/Vol] 215.0 E9/L Normal 150.0-500.0 [facility] Comment on above: Performed By: #### 2 961366, 96395366, 50477103, 0464057, 50298273, 66081150, 6340358 ####[facility] [address] [place] [address] RBC (Bld) [#/Vol] 3.9 E12/L Low 4.3-5.9 [facility] Comment on above: Performed By: #### 2 633220, 40328743, 60928314, 0936259, 74535558, 72009770, 1985162 ####[facility] [address] [place] [address] WBC corrected for nucl RBC Auto (Bld) [#/Vol] 10.9 E9/L Normal 4.0-11.0 [facility] Comment on above: Result Comment: Slid e reviewed by ts. Performed By: #### 2 415188, 56017844, 27314093, 6576890, 93747018, 34835715, 2663876 ####[facility] [address] [place] [address] CHEMISTRYOrdered By: SYSTEM SYSTEM on 09-05-2022 Anion gap [Moles/Vol] 10 mmol/L Normal 6 - 16 mEq/L [facility] Remisol Calcium [Mass/Vol] 8.8 mg/dL Low 8.9 [...] rate/Area] mL/min/1.73 m2 Normal >=59mL/min/ 1.73 m2 [facility] Chem S Glucose [Mass/Vol] 87 mg/dL Normal 55 - 199 mg/dL [facility] Remisol Potassium [Moles/Vol] 3.3 mmol/L Low 3.5 - 5.3 mmol/L [facility] Remisol Sodium [Moles/Vol] 131 mmol/L Low 135 - 145 mmol/L [facility] Remisol Troponin I.cardiac [Mass/Vol] 4.70 pg/mL Low 10.10 - 27.10 pg/mL [facility] Remisol Urea nitrogen [Mass/Vol] 7 mg/dL Normal 5 - 21 mg/dL [facility] Remisol Urea nitrogen/Creatinine [Mass ratio] 10 mg/mg Normal 10 - 20 [facility] Remisol CHEMISTRYOrdered By: Temi hayden on 09-05-2022 Natriuretic peptide B (Bld) [Mass/Vol] 8 pg/mL Normal 5 - 80 pg/mL [facility] HemeManSS COAGULATIONOrdered By: Yamile Li on 09-05-2022 aPTT Coag (PPP) [Time] 27.1 s Normal 25.1 - 36.5 second(s) [facility] Auto Coag INR Coag (PPP) [Relative time] 0.9 {INR} Invalid Interpretation Code [facility] Auto Coag PT Coag (PPP) [Time] 10.3 s Normal 9.4 - 1 2.5 second(s) [facility] Auto Coag Consent for Treatmenton 08-16 Consent for Treatment [id number]#1.00CD:12 7 Normal [facility] ED Note-Nursingon 09-05-2022 ED Note-Nursing Normal [facility] ED Note-Physicianon 09-05-20 ED Note-Physician Normal [facility] Comment on above: Result Comment: Elec tronically Signed By: Gopi Rodriguez DO\Date and Time Signed: 09/05/22 21:46 EST Group B Strep by PCRon 09-05 Group B Strep colonization by PCR Negative Normal Negative [facility] Comment on above: Performed By: #### 4 [id number] ####[facility] [address] [place] [address] HEMATOLOGYOrdered By: SYSTEM SYSTEM on 09-05-2022 Basophils/100 [...] 10.9 E9/L Normal 4.0 - 11.0 E9/L [facility] Comment on above: Result Comment: Slid e reviewed by ts. MICRO OTHER TESTSOrdered By: Valerie Li on 09-05-2022 Rapid COV Int NEG Ctl Pass (09/05/22 8:22 PM) Normal [facility] Man Sero Rapid COV Int POS Ctl Pass (09/05/22 8:22 PM) Normal [facility] Man Sero SARS-CoV+SARS-CoV-2 (COVID-19) Ag IA.rapid Ql (Resp) Detected 2 *ABN* (09/05/22 8:22 PM) Invalid Interpretation Code Not Detected [facility] Man Sero Comment on above: Result Comment: Resu lts Called To Berna Cook, MAHESH/ER By AGNIESZKA And Read Back For Confirmation On 09/05/2022 21:14:20 EST Results Verified By Repeat Analysis PT & PTTon 09-05-2022 aPTT Coag (PPP) [Time] 27.1 second(s) Normal 25.1-36.5 [facility] Comment on above: Result Comment: Para meter [...] the same coagulation reagent and instrumentation as [facility]. Currently there are no coagulation studies available worldwide for children to 14 days, and no normal ranges. Heparin therapeutic range (represented by Anti-Factor Xa activity of 0.2 - 0.4 U/mL) corresponds to PTT of 56.6 - 109.0 sec. Performed By: #### 2 271179, 79917666, 82463671, 0921969, 75020458, 13331351, 2384524 ####[facility] [address] [place] [address] INR Coag (PPP) [Relative time] 0.9 {INR} Invalid Interpretation Code [facility] Comment on above: Result Comment: INR results are specifically intended to assess patients stabilized on long-term Anticoagulation therapy suggested INR?s ?Less Intensive Anticoagulation? 2.0 ? 3.0Conventional Range 3.0 ? 4.5 Performed By: #### 2 781983, 70295812, 34171716, 9881075, 09009948, 69271093, 0481941 ####[facility] [address] [place] [address] PT Coag (PPP) [Time] 10.3 second(s) Normal 9.4-12.5 [facility] Comment on above: Result Comment: 15 d [...] the same coagulation reagent and instrumentation as [facility]. Currently there are no coagulation studies available worldwide for children to 14 days, and no normal ranges. Performed By: #### 2 257808, 11255187, 57884487, 4515924, 78705193, 52249456, 7767216 ####[facility] [address] [place] [address] Rapid COVID Antigen ([facility])on 09-05-2022 Rapid COV Int NEG Ctl Pass Normal [facility] Comment on above: Performed By: #### 2 [id number] ####[facility] [address] [place] [address] Rapid COV Int POS Ctl Pass Normal [facility] Comment on above: Performed By: #### 2 425708812 ####[address] [place] [address] SARS-CoV+SARS-CoV-2 (COVID-19) Ag IA.rapid Ql (Resp) Detected Abnormal Not Detected [facility] Comment on above: Result Comment: Resu lts Called To Berna Cook RN/ER By AGNIESZKA And Read Back For Confirmation On 09/05/2022 21:14:20 ESTResults Verified By Repeat AnalysisThe Oncimmune System for Rapid Detection of SARS-CoV-2 is [...] or revoked sooner. Performed By: #### 2 [id number] ####[place] [address] ADMITTED TO INTENSIVE CARE UNIT FOR CONDITION OF INTEREST:FIND:PT: NO Normal [facility] Comment on above: Performed By: #### 2 114948749 ####[place] [address] EMPLOYED IN A HEALTHCARE SETTING:FIND:PT: NO Normal [facility] Comment on above: Performed By: #### 2 [id number] ####[place] [address] FIRST TEST FOR CONDITION OF INTEREST:FIND:PT: YES Normal [facility] Comment on above: Performed By: #### 2 [id number] ####[place] [address] HAS SYMPTOMS RELATED TO CONDITION OF INTEREST:FIND:PT: YES Normal [facility] Comment on above: Performed By: #### 2 114810624 ####[place] [address] HOSPITALIZED FOR CONDITION OF INTEREST:FIND:PT: NO Normal [facility] Comment on above: Performed By: #### 2 [id number] ####[place] [address] STATUS:FIND:PT: NO Normal [facility] Comment on above: Performed By: #### 2 [id number] ####[place] [address] RESIDES IN A CONGREGATE CARE SETTING:FIND:PT: NO Normal [facility] Comment on above: Performed By: #### 2 [id number] ####[facility] [address] [place] [address] Troponin 0 Hr.on 09-05-2022 Troponin I.cardiac [Mass/Vol] 4.70 pg/mL Low 10.10-27.10 [facility] Comment on above: Result Comment: The 95% CI (Confidence Interval) PPV (Positive Predictive Value) for myocardial infarction in females is 38 pg/mL, in males 51 pg/mL. The results should be used in conjunction with clinical conditions of myocardial infarction.(Access High Sensitivity Troponin I Instructions For Use, Ziggy Ridejoy, May 2018) Performed By: #### 2 704175, 69439767, 05101992, 7820401, 08158652, 57442129, 5454878 ####[facility] [address] [place] [address] eGFRon 09-05-2022 GFR/1.73 sq M.predicted among blacks MDRD (S/P/Bld) [Vol rate/Area] mL/min/{1.73_m2} Normal >=59 [facility] Comment on above: Order Comment: Order added by Discern Expert. Result Comment: eGFR is race adjusted. AA=. Performed By: #### 2 707867, 11225892, 56042540, 9752626, 78204689, 00211270, 0697448 ####[facility] [address] [place] [address] GFR/1.73 sq M.predicted among non-blacks MDRD (S/P/Bld) [Vol rate/Area] mL/min/{1.73_m2} Normal >=59 [facility] Comment on above: Order Comment: Order added by Discern Expert. Result Comment: Buttonhole Facer lucy kidney disease could be indicated at eGFR's of less than 60 mL/min/1.73m2. Kidney failure is indicated at less than 15 mL/min/1.73m2. Performed By: #### 2 475515, 95854197, 86984821, 6915713, 76940410, 55543495, 2047592 ####[facility] [address] [place] [address] Coding Summary.on 09-04-2022 Coding Summary. Normal [facility] Nursing Assessmenton 022 Nursing Assessment [id number]#1.00CD:1 27 Normal [facility] Physician Orderon 09-04-2022 Physician Order [id number]#1.00CD:1 27 Normal [facility] ABO/Rhon 08-31-2022 ABO/Rh Positive Invalid Interpretation Code [facility] Comment on above: Performed By: #### 1 4629145, 8687407, 30405362, 68655029 ####[facility] [address] [place] [address] ABO/Rh History Checkon 08-31 ABO/Rh History Check Verified Hx Blood Type Normal [facility] Comment on above: Performed By: #### 1 8421509, 1448595, 11573634, 89761162 ####[facility] [address] [place] [address] ABSCon 08-31-2022 ABSC Gel Interp Negative Normal [facility] Comment on above: Performed By: #### 1 1690405, 9758546, 13073012, 66778816 ####[facility] [address] [place] [address] BUNon 08-31-2022 Urea nitrogen [Mass/Vol] 8 mg/dL Normal 03-04 [facility] Comment on above: Performed By: #### 2 958615, 8680001, 11380180, 6139645, 98452005, 9102457, 4050888, 3391388, 1709008, 5839632, 62127860 ####[facility] [address] [place] [address] Blood Bank ID#on 08-31-2022 BBID# [id number] Invalid Interpretation Code [facility] Comment on above: Performed By: #### 1 9366985, 4602973, 05214981, 13944469 ####[facility] [address] [place] [address] CBC w/Indiceson 08-31-2022 Erythrocyte distribution width (RBC) [Ratio] 12.9 % Normal 10.9-14.2 [facility] Comment on above: Performed By: #### 2 743275, 8036131, 58697846, 4187142, 40961670, 7898312, 9961360, 1564471, 6778012, 4011827, 13265657 ####[facility] [address] [place] [address] Hematocrit (Bld) [Volume fraction] 35.0 % Normal 34.0-46.0 [facility] Comment on above: Performed By: #### 2 979611, 8827302, 61030052, 5160978, 89403632, 3855111, 5028656, 4359967, 9539547, 6165530, 24541132 ####[facility] [address] [place] [address] Hemoglobin (Bld) [Mass/Vol] 12.0 g/dL Normal 12.0-16.0 [facility] Comment on above: Performed By: #### 2 852834, 3534826, 93006640, 7055809, 42111309, 0479705, 2927679, 5476028, 3521102, 4833079, 88053101 ####[facility] [address] [place] [address] MCH (RBC) [Entitic mass] 30.7 pg Normal 27.0-34.0 [facility] Comment on above: Performed By: #### 2 938709, 8517411, 08006403, 9519873, 74942353, 1593107, 2281895, 8662400, 7986611, 0273719, 75791414 ####[facility] [address] [place] [address] MCHC (RBC) [Mass/Vol] 34.4 g/dL Normal 31.4-36.0 [facility] Comment on above: Performed By: #### 2 258445, 1976929, 85390252, 7845372, 71552646, 2181808, 2797797, 4651170, 7619786, 4413836, 44778987 ####[address] [place] [address] MCV (RBC) [Entitic vol] 89.5 fL Normal 80.0-100.0 [facility] Comment on above: Performed By: #### 2 836984, 7152320, 23840247, 6142486, 70995798, 7521658, 7020633, 6491038, 9232401, 5258398, 73966884 ####[address] [address] Platelet mean volume (Bld) [Entitic vol] 9.8 fL Normal 6.4-10.8 [facility] Comment on above: Performed By: #### 2 404967, 9235773, 66869117, 3554231, 02111170, 1071412, 0150417, 6398523, 3052717, 6104025, 71244911 ####[address] [address] Platelets (Bld) [#/Vol] 234.0 E9/L Normal 150.0-500.0 [facility] Comment on above: Performed By: #### 2 824174, 6171070, 78262313, 7365768, 00005043, 5048336, 2773881, 3859245, 4929351, 9751394, 99056771 ####[address] [address] RBC (Bld) [#/Vol] 3.9 E12/L Low 4.3-5.9 [facility] Comment on above: Performed By: #### 2 634974, 4965444, 15778346, 0350380, 61668056, 5715974, 2672813, 4922818, 2725198, 3658595, 14737062 ####[address] [address] WBC corrected for nucl RBC Auto (Bld) [#/Vol] 12.6 E9/L High 4.0-11.0 [facility] Comment on above: Performed By: #### 2 517792, 4031205, 63862802, 5928326, 21790697, 0272496, 8185248, 0039282, 5253614, 8429878, 90159486 ####[facility] [address] [place] [address] Creatinineon 08-31-2022 Creatinine [Mass/Vol] 0.7 mg/dL Normal 0.5-1.3 [facility] Comment on above: Performed By: #### 2 173371, 2599042, 76987925, 9830164, 81139349, 1997996, 8444017, 7677639, 1503318, 5582861, 52478956 ####[facility] [address] [place] [address] Discharge Instructionson Discharge Instructions [id number]#[id number]:12 7 Normal [facility] Ethanolon 08-31-2022 Ethanol [Mass/Vol] mg/dL Normal <=7 [facility] Comment on above: Performed By: #### 2 447132 ####[facility] [address] [place] [address] FSPon 08-31-2022 Fibrin+Fibrinogen fragments (S) [Mass/Vol] <10 Normal <10 [facility] Comment on above: Performed By: #### 2 783890, 2246936, [id number], [id number], [id number], 8891621, 5902424, 3873587, 3407847, 8217823, [id number] ####[facility] [id number] [place] [address] Stainon 08-31-2022 FMHV 0 mL Invalid Interpretation Code [facility] Comment on above: Performed By: #### 2 [id number], [id number], [id number], 4374894, [id number], 3238849, 4879440, 0835375, 4335357, 8758970, [id number] ####[facility] [id number] [place] [address] Negative Control Negative Normal [facility] Comment on above: Performed By: #### 2 [id number], 4009833, [id number], 1538095, [id number], 0295978, 5834733, 0178861, 9968824, 5580581, 49526053 ####[facility] [address] [place] [address] Fibrinogenon 08-31-2022 Fibrinogen Coag (PPP) [Mass/Vol] 406 mg/dL High 200-393 [facility] Comment on above: Performed By: #### 2 499320, 0727500, 56036952, 9409471, 69076894, 9467385, 3543722, 4683640, 2282706, 8761397, 61659818 ####[facility] [address] [place] [address] Hep Func Panelon 08-31-2022 Bilirubin.indirect [Mass or moles/Vol] UTC Abnormal 0.1-0.9 [facility] Comment on above: Result Comment: Resu lt verified by Discern Rule. Performed result UTC (Unable to Calculate) was sent as an Alpha code due the inability to calculate a valid numeric value. Performed By: #### 2 409135, 7042881, 02495806, 2808797, 79792017, 2130810, 0130353, 5390106, 0404041, 9530861, 32191857 ####[facility] [address] [place] [address] Albumin [Mass/Vol] 2.8 g/dL Low 3.3-5.0 [facility] Comment on above: Performed By: #### 2 627588, 4896202, 27153396, 2123433, 45716930, 1296826, 6698947, 3885964, 2072077, 6028629, 26957739 ####[address] [place] [address] Albumin/Globulin (S) [Mass conc ratio] 0.7 Low 1.1-2.2 [facility] Comment on above: Performed By: #### 2 010943, 9378086, 17303601, 8564426, 45042524, 9731847, 6352031, 6878674, 3623454, 7051971, 63639357 ####[address] [place] [address] ALP [Catalytic activity/Vol] 80 Int._Unit/L Normal 21-98 [facility] Comment on above: Performed By: #### 2 316476, 9946289, 51473176, 6826169, 89720072, 0799479, 5187810, 6261091, 2169599, 1095505, 62631598 ####[address] [address] ALT No additional P-5'-P [Catalytic activity/Vol] 10 Int._Unit/L Normal 6-46 [facility] Comment on above: Performed By: #### 2 182757, 8835658, 13153814, 1695524, 97863135, 9454175, 7194714, 2561988, 1982512, 3732483, 73521198 ####[address] [address] AST [Catalytic activity/Vol] 16 Int._Unit/L Normal 5-43 [facility] Comment on above: Performed By: #### 2 568480, 3538174, 18974274, 1784618, 33362415, 3985357, 9991111, 6197771, 0252823, 3248843, 06381986 ####[address] [place] [address] Bilirubin [Mass/Vol] 0.1 mg/dL Normal 0.0-1.1 [facility] Comment on above: Performed By: #### 2 898184, 9217763, 77108211, 4344234, 84082628, 4703520, 8863171, 8032902, 8689359, 9986111, 55512448 ####[facility] [address] [place] [address] Bilirubin.direct [Mass/Vol] mg/dL Normal 0.1-0.4 [facility] Comment on above: Performed By: #### 2 191660, 4937275, 84707789, 2699448, 53299326, 7249674, 7876930, 7806245, 1662224, 0686322, 21999001 ####[facility] [address] [place] [address] Globulin (S) [Mass/Vol] 3.8 g/dL Normal 1.4-4.0 [facility] Comment on above: Performed By: #### 2 640735, 8949202, 37424437, 2083941, 54444951, 3645598, 6427068, 5951149, 3529867, 2378986, 57998010 ####[facility] [address] [place] [address] Protein [Mass/Vol] 6.6 g/dL Normal 6.0-7.8 [facility] Comment on above: Performed By: #### 2 277542, 3011296, 17814267, 9416517, 39331518, 7235180, 0231200, 2090143, 6704212, 0971941, 35231597 ####[facility] [address] [place] [address] Inpatient Clinical Summaryon 08-31-2022 Inpatient Clinical Summary Normal [facility] Inpatient Patient Summaryon 08-31-2022 Inpatient Patient Summary Normal [facility] Lyteson 08-31-2022 Anion gap [Moles/Vol] 13 mmol/L Normal 6-16 [facility] Comment on above: Performed By: #### 2 323925, 1964737, 57686383, 3041975, 28860862, 4349584, 1387150, 9099874, 1188892, 6046655, 77102510 ####[facility] [address] [place] [address] Chloride [Moles/Vol] 104 mmol/L Normal 101-111 [facility] Comment on above: Performed By: #### 2 923777, 3458964, 00709439, 1834262, 32319124, 5538281, 0428935, 7047879, 9848474, 5578280, 36737467 ####[facility] [address] [place] [address] CO2 [Moles/Vol] 22 mmol/L Normal 21-31 [facility] Comment on above: Performed By: #### 2 713788, 6549321, 47439409, 7050753, 41222062, 2627856, 5268840, 6491327, 0694548, 3650078, 32059439 ####[facility] [address] [place] [address] Potassium [Moles/Vol] 3.5 mmol/L Normal 3.5-5.3 [facility] Comment on above: Performed By: #### 2 332982, 7023946, 79398004, 7987920, 18549390, 1430041, 3925648, 9451466, 0011061, 0649122, 16578160 ####[facility] [address] [place] [address] Sodium [Moles/Vol] 135 mmol/L Normal 135-145 [facility] Comment on above: Performed By: #### 2 856425, 4815820, 19689731, 9405249, 20256327, 2939593, 2910560, 4609366, 8118321, 1900584, 57404232 ####[address] [place] [address] Nursing Assessmenton 022 Nursing Assessment [id number]#1.00CD:12 7 Normal [facility] PT & PTTon 08-31-2022 aPTT Coag (PPP) [Time] 26.3 second(s) Normal 25.1-36.5 [facility] Comment on above: Result Comment: Para meter [...] the same coagulation reagent and instrumentation as [facility]. Currently there are no coagulation studies available worldwide for children to 14 days, and no normal ranges. Heparin therapeutic range (represented by Anti-Factor Xa activity of 0.2 - 0.4 U/mL) corresponds to PTT of 56.6 - 109.0 sec. Performed By: #### 2 166080, 0844255, 35917560, 2634042, 68572945, 2461345, 2472542, 1915963, 2236394, 6427102, 40666947 ####[facility] [address] [place] [address] INR Coag (PPP) [Relative time] 0.9 {INR} Invalid Interpretation Code [facility] Comment on above: Result Comment: INR results are specifically intended to assess patients stabilized on long-term Anticoagulation therapy suggested INR?s ?Less Intensive Anticoagulation? 2.0 ? 3.0Conventional Range 3.0 ? 4.5 Performed By: #### 2 075514, 9272665, 14880342, 1571499, 92728605, 1984994, 6568294, 9832024, 9538210, 8820101, 67395784 ####[facility] [address] [place] [address] PT Coag (PPP) [Time] 10.2 second(s) Normal 9.4-12.5 [facility] Comment on above: Result Comment: 15 d [...] the same coagulation reagent and instrumentation as [facility]. Currently there are no coagulation studies available worldwide for children to 14 days, and no normal ranges. Performed By: #### 2 191063, 0631117, 48087675, 7600555, 50975667, 3394686, 9489155, 8015682, 1314505, 8082534, 69625947 ####[facility] [address] [place] [address] U Drug Screenon 08-31-2022 Amphetamines Screen method >1000 ng/mL Ql (U) Negative Normal Negative [facility] Comment on above: Result Comment: Nega tive Cutoff: <1000 ng/mL Performed By: #### 2 484324, 24326988 ####[facility] [address] [place] [address] Barbiturates Screen Ql (U) Negative Normal Negative [facility] Comment on above: Result Comment: Nega tive Cutoff: <200 ng/mL Performed By: #### 2 768553, 21806243 ####[facility] [address] [place] [address] Benzodiazepines Ql (U) Negative Normal Negative [facility] Comment on above: Result Comment: Nega tive Cutoff: <200 ng/mL Performed By: #### 2 559899, 09821123 ####[facility] [address] [place] [address] Cocaine Ql (U) Negative Normal Negative [facility] Comment on above: Result Comment: Nega tive Cutoff: <300 ng/mL Performed By: #### 2 682673, 52173705 ####[facility] [address] [place] [address] Opiates Screen Ql (U) Negative Normal Negative [facility] Comment on above: Result Comment: Nega tive Cutoff: <300 ng/mL Performed By: #### 2 735310, 74371774 ####[facility] [address] [place] [address] Phencyclidine Screen method >25 ng/mL Ql (U) Negative Normal Negative [facility] Comment on above: Result Comment: Nega tive Cutoff: <25 ng/mLThese drug screen results are to be used for medical (i.e., treatment) purposes only. Unconfirmed drug screening results must not be used for non-medical purposes (e.g., employment testing, legal testing). Performed By: #### 2 405978, 28014342 ####[address] [address] Tetrahydrocannabinol Screen method >50 ng/mL Ql (U) Negative Normal Negative [facility] Comment on above: Result Comment: Nega tive Cutoff: <50 ng/mL Performed By: #### 2 697650, 41040967 ####[facility] [address] [place] [address] UA With Cult Reflexon 2021 Bacteria LM Ql (Urine sed) TRACE Normal Trace [facility] Comment on above: Performed By: #### 2 802046, 39556019 ####[facility] [address] [place] [address] Bilirubin Ql (U) Negative Normal Negative [facility] Comment on above: Performed By: #### 2 729024, 29902372 ####[facility] [address] [place] [address] Clarity (U) CLEAR Normal Clear [facility] Comment on above: Performed By: #### 2 368984, 70662095 ####[facility] [address] [place] [address] Color (U) YELLOW Normal Yellow [facility] Comment on above: Performed By: #### 2 664804, 79017961 ####[facility] [address] [place] [address] Epithelial cells.squamous LM.HPF (Urine sed) [#/Area] 0-2 Normal 0-2 [facility] Comment on above: Performed By: #### 2 096042, 58356000 ####[facility] [address] [place] [address] Glucose Test strip (U) [Mass/Vol] Negative Normal Negative [facility] Comment on above: Performed By: #### 2 721623, 16303577 ####[address] [address] Hemoglobin Ql (U) Negative Normal Negative [facility] Comment on above: Performed By: #### 2 171990, 41066326 ####[address] [address] Ketones (U) [Mass/Vol] Negative Normal Negative [facility] Comment on above: Performed By: #### 2 099978, 03199631 ####[address] [address] [place].plasma/[place] .RBC (Bld) [Mass ratio] 0-3 Normal 0-3 [facility] Comment on above: Performed By: #### 2 149420, 35546163 ####[facility] [address] [place] [address] Nitrite Ql (U) Negative Normal Negative [facility] Comment on above: Performed By: #### 2 539911, 41429715 ####[address] [place] [address] pH (U) 6.0 [pH] Invalid Interpretation Code 5.0-9.0 [facility] Comment on above: Performed By: #### 2 061913, 16500926 ####[address] [address] Protein (U) [Mass/Vol] Negative Normal Negative [facility] Comment on above: Performed By: #### 2 340302, 07628639 ####[address] Specific gravity (U) [Rel density] 1.010 Invalid Interpretation Code 1.005-1.030 [facility] Comment on above: Performed By: #### 2 498154, 15519509 ####[address] Type of Urine collection method Clean Catch Normal [facility] Comment on above: Performed By: #### 2 840481, 22640967 ####[address] Urobilinogen Qn (U) 0.2 {Rola'U}/dL Normal 0.0-1.0 [facility] Comment on above: Performed By: #### 2 315881, 61287561 ####[place] [address] WBC Auto Ql (U) Negative Normal Negative [facility] Comment on above: Performed By: #### 2 359478, 17233876 ####[place] [address] WBC LM.HPF (Urine sed) [#/Area] 0-5 Normal 0-5 [facility] Comment on above: Performed By: #### 2 001166, 03868969 ####[address] [address] Uric Acidon 08-31-2022 Urate [Mass/Vol] 5.0 mg/dL Normal 2.2-7.4 [facility] Comment on above: Performed By: #### 2 976410, 5869501, 69739955, 7544550, 66817965, 0990438, 1392954, 9096900, 0470561, 3578459, 71970037 ####[address] [address] eGFRon 08-31-2022 GFR/1.73 sq M.predicted among blacks MDRD (S/P/Bld) [Vol rate/Area] mL/min/{1.73_m2} Normal >=59 [facility] Comment on above: Order Comment: Order added by Discern Expert. Result Comment: eGFR is race adjusted. AA=. Performed By: #### 2 142002, 5521513, 40487836, 5426504, 69162987, 2934123, 4231333, 0266807, 8505748, 3919963, 14755346 ####[facility] [address] [place] [address] GFR/1.73 sq M.predicted among non-blacks MDRD (S/P/Bld) [Vol rate/Area] mL/min/{1.73_m2} Normal >=59 [facility] Comment on above: Order Comment: Order added by Discern Expert. Result Comment: Buttonhole Facer lucy kidney disease could be indicated at eGFR's of less than 60 mL/min/1.73m2. Kidney failure is indicated at less than 15 mL/min/1.73m2. Performed By: #### 2 051928, 6752067, 70367071, 5742910, 16038870, 9362709, 0411614, 5208341, 9058894, 3389048, 65613523 ####[facility] [address] [place] [address] BLOOD BANKOrdered By: Naldo Li on 08-30-2022 ABO/Rh Interp Positive Invalid Interpretation Code FT BB Subsection ABSC Gel Interp Negative (08/30/22 11:51 PM) Normal [facility] BB Subsection FMHV 0 mL Invalid Interpretation Code [facility] Man Sero CHEMISTRYOrdered By: SYSTEM SYSTEM on [...] rate/Area] mL/min/1.73 m2 Normal >=59mL/min/ 1.73 m2 [facility] Chem S GFR/1.73 sq M.predicted among non-blacks MDRD (S/P/Bld) [Vol rate/Area] mL/min/1.73 m2 Normal >=59mL/min/ 1.73 m2 [facility] Chem S Globulin (S) [Mass/Vol] 3.8 g/dL [...] [Mass/Vol] <10 (08/30/22 11:51 PM) Normal <10 [facility] Man Sero Fibrinogen Coag (PPP) [Mass/Vol] 406 mg/dL High 200 - 393 mg/dL [facility] Auto Coag INR Coag (PPP) [Relative time] 0.9 {INR} Invalid Interpretation Code [facility] Auto Coag PT Coag (PPP) [Time] 10.2 s Normal 9.4 - 1 2.5 second(s) [facility] Auto Coag Consent for Treatmenton 08-15 Consent for Treatment [id number]#1.00CD:12 7 Normal [facility] HEMATOLOGYOrdered By: Naldo Li on 08-30-2022 Erythrocyte distribution width (RBC) [Ratio] 12.9 % Normal 10.9 - 14.2 % FT HemeAutoSS Hematocrit (Bld) [Volume fraction] 35.0 % [...] PM) Normal Negative [facility] UA Auto SS [place].plasma/[place] .RBC (Bld) [Mass ratio] 0-3 /HPF Normal [...] Desc Clean Catch (08/30/22 9:45 PM) Normal [facility] UA Auto SS Urobilinogen Qn (U) 0.2864710 {Rola'U}/dL Normal 0.0 - 1.0 EU/dL [facility] UA Auto SS WBC Auto Ql (U) Negative (08/30/22 9:45 PM) Normal Negative [facility] UA Auto SS WBC LM.HPF (Urine sed) [#/Area] 0-5 /HPF Normal 0-5/HPF [facility] UA Auto SS Coding Summary.on 08-28-2022 Coding Summary. Normal [facility] BLOOD BANKOrdered By: Janet Reyes on 08-22-2022 ABO/Rh Interp Positive Invalid Interpretation Code [facility] BB Subsection ABSC Gel Interp Negative (08/22/22 4:03 PM) Normal [facility] BB Subsection FMHV 0 mL Invalid Interpretation Code [facility] Man Sero CHEMISTRYOrdered By: SYSTEM SYSTEM on [...] rate/Area] mL/min/1.73 m2 Normal >=59mL/min/ 1.73 m2 [facility] Chem S Globulin (S) [Mass/Vol] 3.7 g/dL [...] [Mass/Vol] <10 (08/22/22 4:03 PM) Normal <10 [facility] Man Sero Fibrinogen Coag (PPP) [Mass/Vol] 520 [...] PM) Normal Negative [facility] UA Auto SS [place].plasma/[place] .RBC (Bld) [Mass ratio] 0-3 /HPF Normal [...] [facility] UA Auto SS Urobilinogen Qn (U) 0.5904286 {Rola'U}/dL Normal 0.0 - 1.0 EU/dL [facility] [...] AM) Normal Negative [facility] UA Auto SS [place].plasma/[place] .RBC (Bld) [Mass ratio] 0-3 /HPF Normal [...] Desc Clean Catch (08/18/22 4:08 AM) Normal [facility] UA Auto SS Urobilinogen Qn (U) 0.8102374 {Rola'U}/dL Normal 0.0 - 1.0 EU/dL [facility] UA Auto SS WBC Auto Ql (U) 2+ *ABN* (08/18/22 4:08 AM) Invalid Interpretation Code Negative [facility] UA Auto SS WBC LM.HPF (Urine sed) [#/Area] 6-15 /HPF Invalid Interpretation Code 0-5/HPF [facility] UA Auto SS BLOOD BANKOrdered By: Tom Avelar on 08-13-2022 ABO/Rh Interp Positive Invalid Interpretation Code FT BB Subsection ABSC Gel Interp Negative (08/13/22 6:26 PM) Normal [facility] BB Subsection FMHV 0 mL Invalid Interpretation Code [facility] Man Sero CHEMISTRYOrdered By: SYSTEM SYSTEM on [...] Interpretation Code Negative [facility] UA Auto SS [place].plasma/[place] .RBC (Bld) [Mass ratio] 0-3 /HPF Normal [...] [facility] UA Auto SS Urobilinogen Qn (U) 0.2894659 {Rola'U}/dL Normal 0.0 - 1.0 EU/dL [facility] [...] AM) Normal Negative [facility] UA Auto SS [place].plasma/[place] .RBC (Bld) [Mass ratio] 0-3 /HPF Normal [...] [facility] UA Auto SS Urobilinogen Qn (U) 0.3755717 {Rola'U}/dL Normal 0.0 - 1.0 EU/dL [facility] [...] 9:20 AM) Normal Negative FT Man Sero Rapid COV Int NEG Ctl Pass (07/17/22 9:20 AM) Normal FT Man Sero Rapid COV Int POS Ctl Pass (07/17/22 9:20 AM) Normal [facility] Man Sero SARS-CoV+SARS-CoV-2 (COVID-19) Ag IA.rapid Ql (Resp) Not Detected (07/17/22 9:20 AM) Normal Not Detected [facility] Man Sero URINALYSISOrdered By: Tonja pablo on [...] [Mass/Vol] Negative (07/17/22 9:25 AM) Normal Negative [facility] UA Auto SS [place].plasma/[place] .RBC (Bld) [Mass ratio] 0-3 /HPF Normal 0-3/HPF [facility]A Auto SS Nitrite Ql (U) Negative (07/17/22 9:25 AM) Normal Negative [facility] UA Auto SS pH (U) 7.0 *NA* (07/17/22 9:25 AM) Invalid Interpretation Code 5.0 - 9.0 [facility] UA Auto SS Protein (U) [Mass/Vol] Negative (07/17/22 9:25 AM) Normal Negative [facility] UA Auto SS Specific gravity (U) [Rel density] <=1.005 *NA* (07/17/22 9:25 AM) Invalid Interpretation Code 1.005 - 1.030 [facility] UA Auto SS UA Spec Desc Clean Catch (07/17/22 9:25 AM) Normal [facility] UA Auto SS Urobilinogen Qn (U) 0.6395803 {Rola'U}/dL Normal 0.0 - 1.0 EU/dL [facility] UA Auto SS WBC Auto Ql (U) Negative (07/17/22 9:25 AM) Normal Negative [facility] UA Auto SS WBC LM.HPF (Urine sed) [#/Area] 0-5 /HPF Normal 0-5/HPF [facility] UA Auto SS CHEMISTRYOrdered By: SYSTEM SYSTEM on 06-28-2022 Glucose 1 Hr post 50 g glucose PO [Mass/Vol] 93 mg/dL Normal 55 - 140 mg/dL [facility] Remisol HEMATOLOGYOrdered By: Keila Ring on 06-28-2022 Hematocrit (Bld) [Volume fraction] 35.4 % Normal 34.0 - 46.0 % [facility] HemeAutoSS Hemoglobin (Bld) [Mass/Vol] 12.1 g/dL Normal 12.0 - 16.0 gm/dL [facility] HemeAutoSS BLOOD BANKOrdered By: Jeanette Castle on 06-19-2022 ABO/Rh Interp Positive Invalid Interpretation Code [facility] BB Subsection ABSC Gel Interp Negative (06/19/22 12:15 AM) Normal [facility] BB Subsection FMHV 0 mL Invalid Interpretation Code [facility] Man Sero CHEMISTRYOrdered By: SYSTEM SYSTEM on 06-19-2022 Albumin [Mass/Vol] 2.9 g/dL Low 3.3 - 5.0 gm/dL [facility] [...] PM) Normal Negative [facility] UA Auto SS [place].plasma/[place] .RBC (Bld) [Mass ratio] 0-3 /HPF Normal [...] [facility] UA Auto SS Urobilinogen Qn (U) 0.0099150 {Rola'U}/dL Normal 0.0 - 1.0 EU/dL [facility] [...] PM) Normal Negative [facility] UA Auto SS [place].plasma/[place] .RBC (Bld) [Mass ratio] 0-3 /HPF Normal [...] FT UA Auto SS Urobilinogen Qn (U) 1.3559310 {Rola'U}/dL Normal 0.0 - 1.0 EU/dL [facility] UA Auto SS WBC Auto Ql (U) Negative (05/01/22 5:20 PM) Normal Negative [facility] UA Auto SS WBC LM.HPF (Urine sed) [#/Area] 0-5 /HPF Normal 0-5/HPF [facility] UA Auto SS BLOOD BANKOrdered By: Shayy Medina on 04-02-2022 ABO/Rh Interp Positive Invalid Interpretation Code [facility] BB Subsection ABSC Gel Interp Negative (04/02/22 7:17 AM) Normal [facility] BB Subsection FMHV 0 mL Invalid Interpretation Code [facility] Man Sero CHEMISTRYOrdered By: SYSTEM SYSTEM on [...] rate/Area] mL/min/1.73 m2 Normal >=59mL/min/ 1.73 m2 [facility] Chem S GFR/1.73 sq M.predicted among non-blacks MDRD (S/P/Bld) [Vol rate/Area] mL/min/1.73 m2 Normal >=59mL/min/ 1.73 m2 [facility] Chem S Globulin (S) [Mass/Vol] 3.0 g/dL Normal 1.4 - 4.0 gm/dL [facility] [...] AM) Normal Negative [facility] UA Auto SS [place].plasma/[place] .RBC (Bld) [Mass ratio] 0-3 /HPF Normal [...] [facility] UA Auto SS Urobilinogen Qn (U) 0.2199588 {Rola'U}/dL Normal 0.0 - 1.0 EU/dL [facility] [...] PM) Normal Negative [facility] UA Auto SS [place].plasma/[place] .RBC (Bld) [Mass ratio] 0-3 /HPF Normal [...] [facility] UA Auto SS Urobilinogen Qn (U) 0.7307234 {Rola'U}/dL Normal 0.0 - 1.0 EU/dL [facility] [...] Gel Interp Negative (02/15/22 12:00 PM) Normal [facility] BB Subsection CHEMISTRYOrdered By: SYSTEM SYSTEM on [...] By: Stephanie Diana on 02-15-2022 Test Code 238164 Invalid Interpretation Code [facility] SendOutsSS Test Name IG PAP CTNG HPV Invalid Interpretation Code [facility] SendOutsSS CNPNon 05-05-2021 CNPN Telephone ([facility]) ----- SUSAN BRO ([id number]) 1995 F Date Time Provider Department 05/05/21 MARTHA WEBB During your visit today, we recorded the following information about you: Tucker Bales [employer] 05/05/2021 10:37 AM Signed Patient left message [...] your diligent work on this patient Tucker Danii [employer] Co[employer] Operator 05/24/2021 2:23 PM Signed patient called and left a message today stating she needs to get this figured out she has not eaten in 3 days and cant even drink water now. Patient can be reached at [phone]- please read messages below for refresher Martha Webb MD 05/24/2021 4:30 PM Signed Please advise patient to go to ER for evaluation Tucker Bales [employer] Operator 05/24/2021 4:35 PM Signed Had to leave a message for the patient, left the message to go to ER. Also returned the call to [facility] and spoke to Alejandra that patient needs to go to ER for evalution. Martha Webb MD 05/26/2021 10:21 AM Signed Can you find out if patient went to ER and if so which one so we can get records Tucker Fournier 05/26/2021 3:28 PM Signed Pt did not [...] bed and continue this dose - rizatriptan (MAXALT-PIEROGI MAKER) 10 mg disintegrating tablet Take 1 tablet by mouth as needed for Migraine Headache (see administration instructions). AT ONSET OF HEADACHE. MAY REPEAT AFTER 2 HOURS. DO NOT EXCEED 30 MG PER DAY. Problem List As Of Date: 05/05/2021 (None) Encounter Status:Closed by TUCKER LARA on 05/06/21 [facility] [place] 04-07-2021 CNPN Telephone ([employer]) ----- SUSAN BRO ([id number]) 1995 F Date Time Provider Department 04/07/21 MARTHA WEBB During your visit today, we recorded the following information about you: Tucker Bales [employer] Operator 04/07/2021 12:31 PM Signed [facility] called and they need the GES solid orde rplaced even though she has to use ensure, please sign order in this encounter Allergies As of Date: 04/07/2021 Noted Allergy Reaction PENICILLINS 03/10/2021 2 - Rash Date Reviewed: 04/01/2021 Reviewed by: Odette Agosto MD - Fully Assessed Reason for Visit: Orders [681] Visit Diagnosis:Nausea [R11.0] Order(s):NM GASTRIC EMPTYING SOLID [[id number]] Order #: [id number] FUTURE Prescriptions as of 04/07/2021 Sig: AMITRIPTYLINE 10 MG TABLET Take 1 tab at bed x 1 week, t* RIZATRIPTAN 10 MG DISINTEGRAT* Take 1 tablet by mouth as nee* Problem List As Of Date: 04/07/2021 (None) Encounter Status:[facility] ----- SUSAN BRO ([id number]) 1995 F Date Time Provider Department 04/04/21 MARTHA WEBB During your visit today, we recorded the following information about you: Tucker Bales [employer] Co[employer] Operator 04/04/2021 1:40 PM Signed Patient called and is still waiting for you to place the order for her GES with ensure, she cant eat the eggs and toast Martha Webb MD 04/04/2021 4:48 PM Signed Let patient know I placed the order Tucker Bales [employer] Operator 04/05/2021 11:41 AM [address] you place [...] Visit Diagnosis:Nausea [R11.0] Order(s):[facility] GASTRIC EMPTYING LIQUID [[id number]] Order #: [id number] FUTURE Prescriptions as of 04/04/2021 Sig: AMITRIPTYLINE 10 MG TABLET Take 1 tab at bed x 1 week, t* RIZATRIPTAN 10 MG DISINTEGRAT* Take 1 tablet by mouth as nee* Problem List As Of Date: 04/04/2021 (None) Encounter Status:Closed by MARTHA WEBB on 04/05/21 [facility] 04-01-2021 CNOV Office Visit ([facility] ) ----- SUSAN BRO ([id number]) 1995 F Date Time Provider Department 04/01/21 8:00 AM BERT NEGRETE [facility] During your visit today, we recorded the [...] at least 3 months. These include all glzb-eiw-xgehyxs medications, triptans, narcotics, and butalbital containing medications [...] There h (more content not included)... Normal [place] [facility] 03-22-2021 CNPN Telephone ([employer]) ----- SUSAN BRO ([id number]) 1995 F Date Time Provider Department 03/22/21 MARTHA WEBB During your visit today, we recorded the following information about you: Tucker Danii Fournier 03/22/2021 2:28 PM Signed Received: Today MD Eusebia Banks Cig Jon Clinical Pool; Tucker Bales Metal Wire Coating Operator Let patient know esophagram was normal Next step is gastric emptying study I placed order for gastric emptying study Tucker Bales Metal Wire Coating Operator 03/22/2021 2:28 PM Signed Pt is notified, will schedule the GES Allergies As of Date: 03/22/2021 Noted Allergy Reaction PENICILLINS 03/10/2021 2 - Rash Date Reviewed: 03/10/2021 Reviewed by: Martha Webb MD - Fully Assessed Reason for Visit: Results [95] Problem List As Of Date: 03/22/2021 (None) Encounter Status:Closed by DANII FOURNIERTUCKER on 03/22/21 Normal [facility] XR ESOPHAGRAMon 03-17-2021 XR ESOPHAGRAM * * *Final Report* * * DATE OF EXAM: Mar 17 2021 10:19AM RADHIKA 5378 - XR ESOPHAGRAM / PROCEDURE REASON: [...] symptoms. Other Findings: None. IMPRESSION: Normal esophagram. Educational Assistant Teacher: LUCITA Transcribe Date/Time: Mar 17 2021 11:15A Dictated by : CRISTÓBAL SALINAS DO This examination was interpreted and the report reviewed and electronically signed by: CRISTÓBAL SALINAS DO on Mar 17 2021 11:18AM EST [id number] [facility] 03-10-2021 CNOV Office Visit (GSTCON ) ----- SUSAN BRO ([id number]) 1995 F Date Time Provider Department 03/10/21 11:15 AM MARTHA WEBB During your visit today, we recorded the following information about you: Pulse Blood pressure Weight Height 69/minute 108/76 73 kg 1.626 m Martha Webb MD 03/10/2021 12:03 PM Signed This note was created using [employer]. Subjective Susan Bro is a 25 year [...] COMMENT: Un (more content not included)... Normal [facility] CNPNon 03-10-2021 CNPN Telephone (GHADA) ----- SUSAN BRO ([id number]) 1995 F Date Time Provider Department 03/10/21 MARTHA WEBB During your visit today, we recorded the following information about you: Don Fournier 03/10/2021 1:24 PM Signed Failed fax in [employer] from 03/10/2021 regarding this patient from Dr. Webb. Faxed manually to [phone]. Scanned fax confirmation/documents into [employer]. Don Mcdonald Asst Allergies As of Date: 03/10/2021 Noted Allergy Reaction PENICILLINS 03/10/2021 2 - Rash Date Reviewed: 03/10/2021 Reviewed by: Martha Webb MD - Fully Assessed Reason for Visit: Electronic Communication [890] Problem List As Of Date: 03/10/2021 (None) Encounter Status:Closed by DON DIAZ on 03/10/21 Normal [facility] CBC WITH AUTO DIFFERENTIALon 10-14-2020 Basophils (Bld) [#/Vol] 0.06 10*3/uL [facility] Basophils/100 WBC (Bld) 0.6 % [facility] Eosinophils (Bld) [#/Vol] 0.36 10*3/uL [facility] Eosinophils/100 WBC (Bld) 3.4 % [facility] Erythrocyte distribution width (RBC) [Entitic vol] 13.2 % 11.6 - 14.8 % [facility] Hematocrit (Bld) [Volume fraction] 43.2 % 36 - 46 % [facility] Hemoglobin (Bld) [Mass/Vol] 14.1 g/dL 12 - 16 g/dL [facility] Immature granulocytes (Bld) [#/Vol] 0.03 10*3/uL [facility] Immature granulocytes/100 WBC (Bld) 0.30 % [facility] Comment on above: The IG parameter is the percentage of metamyelocytes, myelocytes and promyelocytes. An immature granulocyte count (IG) of 1% or more suggests the possibility of infection, an IG count of 3% is very likely related to an infection. Interpretation and review of laboratory results Abnormal [facility] Lymphocytes (Bld) [#/Vol] 1.47 10*3/uL [facility] Lymphocytes/100 WBC (Bld) 13.8 % [facility] MCH (RBC) [Entitic mass] 29.6 pg 26 - 34 pg [facility] MCHC (RBC) [Mass/Vol] 32.6 g/dL 31 - 3 7 g/dL [facility] MCV (RBC) [Entitic vol] 90.6 fL 80 - 100 fL [facility] Monocytes (Bld) [#/Vol] 0.58 10*3/uL [facility] Monocytes/100 WBC (Bld) 5.5 % [facility] Neutrophils (Bld) [#/Vol] 8.12 10*3/uL High [facility] Neutrophils/100 WBC (Bld) 76.4 % [facility] Nucleated RBC (Bld) [#/Vol] 0.00 10*3/uL [facility] Nucleated RBC/100 WBC (Bld) [Ratio] 0.0 % [facility] Platelet mean volume (Bld) [Entitic vol] 10.3 fL 9.4 - 12.4 fL [facility] Platelets (Bld) [#/Vol] 251 10*3/uL [facility] RBC (Bld) [#/Vol] 4.77 10*6/uL [facility] ealth WBC (Bld) [#/Vol] 10.62 10*3/uL [facility] COVID-19/INFLUENZA A,B MOLEC [facility] 10-14-2020 COVID-19/INFLUENZA A,B MOLECULAR SARS-COV-2 (SANA): Not Detected INFLUENZA A (SANA): Not Detected INFLUENZA B (SANA): Not Detected Normal Not Detected [facility] Comment on above: Order Comment: This [...] at the following links: For Healthcare Providers: https://www.fda.gov/media/486591/download For Patients: https://www.fda.gov/media/093830/download Performed By: #### L [id number] #### [facility] [address], [place] [address] Raffy Yadav M.D. [id number] COVID-19/Influenza A,B [facility] 10-14-2020 Influenza A Not Detected Not Detected [facility] Influenza B Not Detected Not Detected [facility] Interpretation and review of laboratory results Normal [facility] SARS-CoV-2 Not Detected Not Detected [facility] This test was perfor med under the [...] the following links: For Healthcare Providers: https://www.fda.gov/media /663422/download For Patients: https://www.[employer].gov/media /304674/download [facility] CT HEAD OR BRAIN WITHOUT CON TRASTon [...] SunOct 14, 2020 11:28:15 AM EST Normal [facility] Comment on above: Order Comment: Injur [...] orbits and paranasal sinuses are grossly unremarkable. [facility] 1. No acute intracra nial hemorrhage, focal edema or mass effect. Workstation ID: [id number] [facility] Interface, Rad In Mal christensen Speechq - 10/14/2020 11:30 AM EST EXAMINATION: [...] edema or mass effect. Workstation ID: [id number] [facility] Chem 7on 10-14-2020 Anion gap [Moles/Vol] 8 mmol/L Low 10 - 2 0 mmol/L [facility] Chloride [Moles/Vol] 112 mmol/L High 98 - 10 8 mmol/L [facility] Creatinine [Mass/Vol] 0.78 mg/dL 0.40 - 1.10 [facility] GFR/1.73 sq M predicted among non-blacks MDRD (S/P/Bld) [Vol rate/Area] The eGFR should be used for monitoring renal function only and not for medication dosing. [facility] GFR/1.73 sq M.predicted CKD-EPI (S/P/Bld) [Vol rate/Area] 105 >=60 mL/min/1.73 m2 [facility] Glucose [Mass/Vol] 78 mg/dL 65 - 99 mg/dL [facility] HCO3 [Moles/Vol] 24 mmol/L 21 - 32 mmol/L [facility] Interpretation and review of laboratory results Abnormal [facility] Potassium [Moles/Vol] 4.5 mmol/L 3.5 - 5.1 mmol/L [facility] Comment on above: moderate hemolysis, result may be falsely increased. Sodium [Moles/Vol] 139 mmol/L 135 - 145 mmol/L [facility] Urea nitrogen [Mass/Vol] 5 mg/dL Low 8 - 25 mg/dL [facility] Urea nitrogen/Creatinine [Mass ratio] 6.4 mg/mg Low [facility] Otheron 10-14-2020 Extra Tube Hold for add-ons. [facility] Comment on above: Auto resulted. URINALYSISon 10-14-2020 Bacteria Auto Ql (U) None Seen None Se en /hpf [facility] Bilirubin Ql (U) Negative Negative [facility] Clarity Refractometry automated (U) Cloudy Abnormal Clear [facility] Color (U) Yellow Colorless, Yellow [facility] Epithelial cells.squamous Auto (Urine sed) [#/Area] 18 High [facility] Glucose Auto test strip (U) [Mass/Vol] Negative Negative mg/dL [facility] Hemoglobin Auto test strip Ql (U) Negative Negative [facility] Interpretation and review of laboratory results Abnormal [facility] Ketones (U) [Mass/Vol] Negative Negat juju mg/dL [facility] Leukocyte esterase Auto test strip Ql (U) Trace Abnormal Negative [facility] h Mucus Auto (Urine sed) [#/Area] Many Abnormal None Seen, Rare /lpf [facility] Nitrite Auto test strip Ql (U) Negative Negative [facility] pH (U) 8.0 [pH] High [facility] Protein (U) [Mass/Vol] 30 Abnormal Negat juju mg/dL [facility] Comment on above: False positive resul ts may occur in urines with large amounts of hemoglobin, pH greater than 8.0, contrast medium, or disinfectants including ammonium compounds. RBC Auto (Urine sed) [#/Area] 3 [facility] Specific gravity (U) [Rel density] 1.028 High [facility] Urobilinogen (U) [Mass/Vol] 2.0 mg/dL Abnormal <2.0 [facility] WBC Auto (Urine sed) [#/Area] 3 [facility] Microscopic examinat ion is performed on all urinalysis samples and only positive findings are reported. The test for blood on the chemical analytic portion of urinalysis may also be positive due to hemoglobinuria and myoglobinuria and if red blood cells are present they are quantified by microscopic examination. [facility] hCG Urine, Qualitativeon HCG ( test) Ql (U) Negative Negative [facility] Interpretation and review of laboratory results Normal [facility] ABDOMEN, COMPLT ACUTE SERIES on 09-05-2020 ABDOMEN, COMPLT ACUTE SERIES Patient Name: SUSAN BRO STUDY: ABDOMEN, COMPLT ACUTE SERIES; 09/04/2020 11:54 pm INDICATION: constipation. COMPARISON: None. ACCESSION NUMBER(S): [id number] ORDERING CLINICIAN: BRAYDEN YANEZ TECHNIQUE: Abdomen supine [...] Electronically signed by: CANDACE AREVALO MD Normal [facility] BASIC METABOLIC PANELon 08-16 Anion gap [Moles/Vol] 12 mmol/L Normal 10 - 20 [facility] Comment on above: Performed By: #### B MP #### [address] [address] Calcium [Mass/Vol] 9.0 mg/dL Normal 8.6 - 10.3 [facility] Comment on above: Performed By: #### B MP #### [address] [address] Chloride [Moles/Vol] 105 mmol/L Normal 98 - 107 [facility] Comment on above: Performed By: #### B MP #### [address] [address] Creatinine [Mass/Vol] 0.90 mg/dL Normal 0.50 - 1.05 [facility] Comment on above: Performed By: #### B MP #### [address] [address] GFR- AM. >60 Normal >60 [facility] Comment on above: Result Comment: CALC ULATIONS OF ESTIMATED GFR ARE PERFORMED USING THE MDRD STUDY EQUATION FOR THE IDMS-TRACEABLE CREATININE METHODS. CLIN CHEM 2007;53:766-72 Performed By: #### B MP #### [address] [address] GFR-NON AM. >60 Normal >60 [facility] Comment on above: Performed By: #### B MP #### [address] [address] Glucose [Mass/Vol] 96 mg/dL Normal 74 - 99 [facility] Comment on above: Performed By: #### B MP #### [address] [address] HCO3 (Bld) [Moles/Vol] 25 mmol/L Normal 21 - 32 [facility] Comment on above: Performed By: #### B MP #### [address] [address] Potassium [Moles/Vol] 3.5 mmol/L Normal 3.5 - 5.3 [facility] Comment on above: Performed By: #### B MP #### [address] [address] Sodium [Moles/Vol] 138 mmol/L Normal 136 - 145 [facility] Comment on above: Performed By: #### B MP #### [address] [address] Urea nitrogen [Mass/Vol] 7 mg/dL Normal 6 - 23 [facility] Comment on above: Performed By: #### B MP #### [address] [address] CBCon 09-05-2020 Erythrocyte distribution width (RBC) [Ratio] 13.2 % Normal 11.5 - 14.5 [facility] Comment on above: Performed By: #### C BC #### [address] [address] Hematocrit (Bld) [Volume fraction] 42.5 % Normal 36.0 - 46.0 [facility] Comment on above: Performed By: #### C BC #### [address] [address] Hemoglobin (Bld) [Mass/Vol] 14.5 g/dL Normal 12.0 - 16.0 [facility] Comment on above: Performed By: #### C BC #### [address] [address] MCHC (RBC) [Mass/Vol] 34.2 g/dL Normal 32.0 - 36.0 [facility] Comment on above: Performed By: #### C BC #### [address] [address] MCV (RBC) [Entitic vol] 88 fL Normal 80 - 100 [facility] Comment on above: Performed By: #### C BC #### [address] [address] Platelets (Bld) [#/Vol] 272 10*3/uL Normal 150 - 450 [facility] Comment on above: Performed By: #### C BC #### [address] [address] RBC (Bld) [#/Vol] 4.86 x10E12/L Normal 4.00 - 5.20 [facility] Comment on above: Performed By: #### C BC #### [address] [address] WBC (Bld) [#/Vol] 12.5 10*3/uL High 4.4 - 11.3 [facility] Comment on above: Performed By: #### C BC #### [address] [address] HCG,URINEon 09-05-2020 Beta HCG ( test) Ql (U) Negative Normal Negative [facility] Comment on above: Performed By: #### H CGU #### [address] [address] Provider Note - ED v2on 08-16 Provider [...] data. 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 11:00-0500 Diastolic blood pressure 66 mm[Hg] Luis Carlos Jung [facility] 09-14-2022 11:00-0500 Heart rate 67 /min Luis Carlos Jung [facility] 09-14-2022 11:00-0500 Mean blood pressure 84 mm[Hg] Lius Carlos Jung [facility] 09-14-2022 11:00-0500 Systolic blood pressure 120 mm[Hg] Luis Carlos Jung [facility] 09-14-2022 10:45-0500 Diastolic blood pressure 72 mm[Hg] Luis Carlos Jung [facility] 09-14-2022 10:45-0500 Heart rate 75 /min Luis Carlos Jung [facility] 09-14-2022 10:45-0500 Mean blood pressure 90 mm[Hg] Luis Carlos Jung [facility] 09-14-2022 10:45-0500 Systolic blood pressure 125 mm[Hg] Luis Carlos Jung [facility] 09-14-2022 09:30-0500 Blood Pressure Location Luis Carlos Jung [facility] 09-14-2022 09:30-0500 Body temperature 98.06 [degF] Luis Carlos Jung [facility] 09-14-2022 09:30-0500 Respiratory rate 16 /min Luis Carlos Jung [facility] 09-12-2022 20:45-0500 Hourly Rounding Luis Carlos Jung [facility] Comment on above: Result Comment: dischage instructions gi merly, pt verbalizes understanding. pt ambulates off unit with steady gait 09-12-2022 20:00-0500 Blood Pressure Location Luis Carlos Jung [facility] 09-12-2022 20:00-0500 Diastolic blood pressure 79 mm[Hg] Luis Carlos Jung [facility] 09-12-2022 20:00-0500 Heart rate 84 /min Luis Carlos Jung [facility] 09-12-2022 20:00-0500 Hourly Rounding Luis Carlos Jung [facility] 09-12-2022 20:00-0500 Mean blood pressure 95 mm[Hg] Luis Carlos Jung [facility] 09-12-2022 20:00-0500 Respiratory rate 18 /min Luis Carlos Jung [facility] 09-12-2022 20:00-0500 Systolic blood pressure 128 mm[Hg] Luis Carlos Jung [facility] 09-12-2022 19:45-0500 [facility] Comment on above: Result Comment: [facility] Changes into gown independently, oriented to room, demonstrates ability to use call light, call light in reach 09-08-2022 08:32-0500 Blood Pressure Location Luis Carlos Jung [facility] 09-08-2022 08:32-0500 Body temperature 97.34 [degF] Luis Carlos Jung [facility] 09-08-2022 08:32-0500 Diastolic blood pressure 74 mm[Hg] Luis Carlos Jung [facility] 09-08-2022 08:32-0500 Heart rate 90 /min Luis Carlos Jung [facility] 09-08-2022 08:32-0500 Hourly Rounding Luis Carlos Jung [facility] Comment on above: Result Comment: PLAN OF CARE DISCUSSED 09-08-2022 08:32-0500 Mean blood pressure 90 mm[Hg] Luis Carlos Fabiana [facility] 09-08-2022 08:32-0500 Respiratory rate 18 /min Luis Carlos Jung [facility] 09-08-2022 08:32-0500 Systolic blood pressure 123 mm[Hg] Luis Carlos Jung [facility] 09-05-2022 22:00-0500 Body temperature 98.6 [degF] Kaylinn Dokken [facility] 09-05-2022 22:00-0500 Diastolic blood pressure 73 mm[Hg] Kaylinn Dokken [facility] 09-05-2022 22:00-0500 Mean blood pressure 85 mm[Hg] Kaylinn Dokken [facility] 09-05-2022 22:00-0500 Respiratory rate 27 /min Kaylinn Dokken [facility] 09-05-2022 22:00-0500 SaO2% (BldA) [Mass fraction] 100 % Kaylinn Dokken [facility] 09-05-2022 22:00-0500 Systolic blood pressure 108 mm[Hg] Kaylinn Dokken [facility] 09-05-2022 21:01-0500 Heart rate 78 /min Kaylinn Dokken [facility] 09-05-2022 21:01-0500 Respiratory rate 20 /min Kaylinn Dokken [facility] 09-05-2022 21:01-0500 SaO2% (BldA) [Mass fraction] 94 % Kaylinn Dokken [facility] 09-05-2022 21:00-0500 Diastolic blood pressure 77 mm[Hg] Kaylinn Dokken [facility] 09-05-2022 21:00-0500 Mean blood pressure 87 mm[Hg] Kaylinn Dokken [facility] 09-05-2022 20:10-0500 Body temperature 97.7 [degF] Kaylinn Dokken [facility] 09-05-2022 20:10-0500 Diastolic blood pressure 81 mm[Hg] Kaylinn Dokken [facility] 09-05-2022 20:10-0500 Heart rate 83 /min Kaylinn Dokken [facility] 09-05-2022 20:10-0500 Respiratory rate 22 /min Kaylinn Dokken [facility] 09-05-2022 20:10-0500 SaO2% (BldA) [Mass fraction] 99 % Kaylinn Dokken [facility] 09-05-2022 20:10-0500 Systolic blood pressure 135 mm[Hg] Kaylinn Dokken [facility] 08-31-2022 01:03-0500 Hourly Rounding Luis Carlos Jung [facility] Comment on above: Result Comment: pt ambulates off unit at this time w/ steady gait. 11-17-2022 00:58-0500 Hourly Rounding Luis Carlos Jung [facility] Comment on above: Result Comment: this nurse gives dischar ge instructions to pt at this time. pt verbalizes understanding of all education given. denies further needs. will continue to monitor. 08-31-2022 00:50-0500 Blood Pressure Location Luis Carlos Jung [facility] 08-31-2022 00:50-0500 Diastolic blood pressure 69 mm[Hg] Luis Carlos Jung [facility] 08-31-2022 00:50-0500 Heart rate 67 /min Luis Carlos Jung [facility] 08-31-2022 00:50-0500 Hourly Rounding Luis Carlos Fabiana [facility] Comment on above: Result Comment: pt up to bathroom at thi s time to void and change into clothes. walks w/ steady gait. 08-31-2022 00:50-0500 Mean blood pressure 83 mm[Hg] Luis Carlos Jung [facility] 08-31-2022 00:50-0500 Respiratory rate 18 /min Luis Carlos Jung [facility] 08-31-2022 00:50-0500 Systolic blood pressure 112 mm[Hg] Luis Carlos Jung [facility] 08-30-2022 21:52-0500 Body temperature 98.06 [degF] Luis Carlos Jung [facility] 08-30-2022 21:52-0500 Diastolic blood pressure 74 mm[Hg] Luis Carlos Jung [facility] 08-30-2022 21:52-0500 Heart rate 82 /min Luis Carlos Jung [facility] 08-30-2022 21:52-0500 Mean blood pressure 90 mm[Hg] Luis Carlos Jung [facility] 08-30-2022 21:52-0500 Respiratory rate 18 /min Luis Carlos Jung [facility] 08-30-2022 21:52-0500 Systolic blood pressure 123 mm[Hg] Luis Carlos Jung [facility] 08-30-2022 21:45-0500 Blood Pressure Location Luis Carlos Jung [facility] 08-22-2022 17:19-0500 Hourly Rounding Luis Carlos Jung [facility] Comment on above: Result Comment: MONITORS OFF; PT UP TO D RESS. DISCHARGE INSTRUCTIONS GIVEN WITH VERBAL UNDERSTANDING. 08-22-2022 15:14-0500 Diastolic blood pressure 71 mm[Hg] Luis Carlos Jung [facility] 08-22-2022 15:14-0500 Heart rate 87 /min Luis Carlos Jung [facility] 08-22-2022 15:14-0500 Hourly Rounding Luis Carlos Jung [facility] 08-22-2022 15:14-0500 Mean blood pressure 86 mm[Hg] Luis Carlos Jung [facility] 08-22-2022 15:14-0500 Respiratory rate 18 /min Luis Carlos Jung [facility] 08-22-2022 15:14-0500 Systolic blood pressure 115 mm[Hg] Luis Carlos Jung [facility] 08-18-2022 12:28-0400 Hourly Rounding Luis Carlos Jung [facility] Comment on above: Result Comment: pt verbalizes understand ing of discharge instructions. pt states she has an appointment sunday with dr jung. pt ambulated out of unit 08-18-2022 10:28-0400 Hourly Rounding Luis Carlos Jung [facility] Comment on above: Result Comment: pt c/o left lower abd pa in. states it is intermittent and sharp. encouraged pt to get up and empty bladder. pt states pain is still 7/10. dr jung on unit & at bedside 08-18-2022 09:09-0400 Hourly Rounding Luis Carlos Jung [facility] Comment on above: Result Comment: pt sitting up in bed wit h breakfast tray, visitor at bedside 08-18-2022 07:15-0400 Blood Pressure Location Luis Carlos Montesinosten [facility] 08-18-2022 07:15-0400 Diastolic blood pressure 56 mm[Hg] Luis Carlos Jugn [facility] 08-18-2022 07:15-0400 Heart rate 69 /min Luis Carlos Jung [facility] 08-18-2022 07:15-0400 Mean blood pressure 74 mm[Hg] Luis Carlos Fabiana [facility] 08-18-2022 07:15-0400 Respiratory rate 16 /min Luis Carlos Jung [facility] 08-18-2022 07:15-0400 Systolic blood pressure 111 mm[Hg] Luis Carlos Jung [facility] 08-18-2022 05:58-0400 Blood Pressure Location Luis Carlos Fabiana [facility] 08-18-2022 05:58-0400 Diastolic blood pressure 59 mm[Hg] Luis Carlos Jung [facility] 08-18-2022 05:58-0400 Heart rate 67 /min Luis Carlos Jung [facility] 08-18-2022 05:58-0400 Mean blood pressure 77 mm[Hg] Luis Carlos Jung [facility] 08-18-2022 05:58-0400 Respiratory rate 16 /min Luis Carlos Jung [facility] 08-18-2022 05:58-0400 Systolic blood pressure 113 mm[Hg] Luis Carlos Jung [facility] 08-18-2022 04:06-0400 Blood Pressure Location Luis Carlos Jung [facility] 08-18-2022 04:06-0400 Body temperature 98.06 [degF] Luis Carlos Jung [facility] 08-18-2022 04:06-0400 Diastolic blood pressure 65 mm[Hg] Luis Carlos Jung [facility] 08-18-2022 04:06-0400 Heart rate 70 /min Luis Carlos Jung [facility] 08-18-2022 04:06-0400 Mean blood pressure 79 mm[Hg] Luis Carlos Jung [facility] 08-18-2022 04:06-0400 Respiratory rate 16 /min Luis Carlos Jung [facility] 08-18-2022 04:06-0400 Systolic blood pressure 107 mm[Hg] Luis Carlos Jung [facility] 08-13-2022 20:04-0400 Hourly Rounding Luis Carlos Jung [facility] Comment on above: Result Comment: Patient discharged off u nit. Discharge instructions were reviewed. Pt walks off unit without any notable signs or symtpoms of distress. 08-13-2022 19:45-0400 Hourly Rounding Luis Carlos Jung [facility] 08-13-2022 19:45-0400 Hourly Rounding Luis Carlos Jung [facility] Comment on above: Result Comment: Patient sitting in bed. BPP results reviewed with patient. Pt denied any additional questions. Call light within reach. 08-13-2022 18:12-0400 Heart rate 88 /min Luis Carlos Jung [facility] 08-13-2022 18:12-0400 Nursing Progress Note Reason Other: Pt updated on orders received from . jose understanding Luis Carlos Jung [facility] 08-13-2022 18:12-0400 SaO2% (BldA) [Mass fraction] 99 % Luis Carlos Jung [facility] 08-13-2022 17:33-0400 Body temperature 97.88 [degF] Luis Carlos Jung [facility] 08-13-2022 17:33-0400 Diastolic blood pressure 72 mm[Hg] Luis Carlos Jung [facility] 08-13-2022 17:33-0400 Mean blood pressure 88 mm[Hg] Luis Carlos Jung [facility] 08-13-2022 17:33-0400 Respiratory rate 18 /min Luis Carlos Jung [facility] 08-13-2022 17:33-0400 Systolic blood pressure 121 mm[Hg] Luis Carlos Jung [facility] 07-26-2022 10:22-0400 Hourly Rounding Luis Carlos Jung [facility] Comment on above: Result Comment: discharge instructions p rovided and pt signs discharge consent with RN witness. pt preparing for discharge, belly band placed on pt. RN offers wheelchair exit for discharge and pt declines and wants to walk down on own. 07-26-2022 10:22-0400 Promise to Return Luis Carlos Jung [facility] 07-26-2022 10:00-0400 Hourly Rounding Luis Carlos Jung [facility] 07-26-2022 10:00-0400 Promise to Return Luis Carlos Jung [facility] 07-26-2022 09:15-0400 Blood Pressure Location Luis Carlos Montesinosten [facility] 07-26-2022 09:15-0400 Body temperature 97.7 [degF] Luis Carlos Montesinosten [facility] 07-26-2022 09:15-0400 Diastolic blood pressure 62 mm[Hg] Luis Carlos Montesinosten [facility] 07-26-2022 09:15-0400 Heart rate 70 /min Luis Carlos Montesinosten [facility] 07-26-2022 09:15-0400 Hourly Rounding Luis Carlos Jung [facility] 07-26-2022 09:15-0400 Mean blood pressure 74 mm[Hg] Luis Carlos Montesinosten [facility] 07-26-2022 09:15-0400 Respiratory rate 18 /min Luis Carlos Jung [facility] 07-26-2022 09:15-0400 Systolic blood pressure 97 mm[Hg] Luis Carlos Montesinosten [facility] 07-26-2022 09:00-0400 Promise to Return Luis Carlos Jung [facility] 07-26-2022 08:14-0400 Body temperature 98.06 [degF] Luis Carlos Montesinosten [facility] 07-26-2022 08:14-0400 Diastolic blood pressure 66 mm[Hg] Luis Carlos Fabiana [facility] 07-26-2022 08:14-0400 Heart rate 81 /min Luis Carlos Jung [facility] 07-26-2022 08:14-0400 Mean blood pressure 80 mm[Hg] Luis Carlos Jung [facility] 07-26-2022 08:14-0400 Respiratory rate 18 /min Luis Carlos Jung [facility] 07-26-2022 08:14-0400 Systolic blood pressure 109 mm[Hg] Lui sCarlos Jung [facility] 07-17-2022 09:07-0400 Body temperature 97.88 [degF] Ko Dumas [facility] 07-17-2022 09:07-0400 Diastolic blood pressure 74 mm[Hg] oK Dumas [facility] 07-17-2022 09:07-0400 Heart rate 85 /min Ko Dumas [facility] 07-17-2022 09:07-0400 Respiratory rate 16 /min Ko Dumas [facility] 07-17-2022 09:07-0400 SaO2% (BldA) [Mass fraction] 100 % Ko Dumas [facility] 07-17-2022 09:07-0400 Systolic blood pressure 117 mm[Hg] Ko Dumas [facility] 06-26-2022 21:38-0400 Blood Pressure Location Luis Carlos Jung [facility] 06-26-2022 21:38-0400 Diastolic blood pressure 61 mm[Hg] Luis Carlos Jung [facility] 06-26-2022 21:38-0400 Heart rate 83 /min Luis Carlos Jung [facility] 06-26-2022 21:38-0400 Hourly Rounding Luis Carlos Jung [facility] Comment on above: Result Comment: discharged ambulatory to po 06-26-2022 21:38-0400 Mean blood pressure 75 mm[Hg] Luis Carlos Jung [facility] 06-26-2022 21:38-0400 Respiratory rate 16 /min Luis Carlos Jung [facility] 06-26-2022 21:38-0400 Systolic blood pressure 102 mm[Hg] Luis Carlos Jung [facility] 06-26-2022 21:15-0400 Blood Pressure Location Luis Carlos Jung [facility] 06-26-2022 21:15-0400 Diastolic blood pressure 64 mm[Hg] Luis Carlos Jung [facility] 06-26-2022 21:15-0400 Heart rate 74 /min Luis Carlos Jung [facility] 06-26-2022 21:15-0400 Hourly Rounding Luis Carlos Jung [facility] 06-26-2022 21:15-0400 Mean blood pressure 78 mm[Hg] Luis Carlos Jung [facility] 06-26-2022 21:15-0400 Respiratory rate 16 /min Luis Carlos Jung [facility] 06-26-2022 21:15-0400 Systolic blood pressure 106 mm[Hg] Luis Carlos Jung [facility] 06-26-2022 21:05-0400 Body temperature 97.88 [degF] Luis Carlos Montesinosten [facility] 06-26-2022 21:05-0400 Respiratory rate 18 /min Luis Carlos Jung [facility] 06-26-2022 21:00-0400 Hourly Rounding Luis Carlos Jung [facility] Comment on above: Result Comment: ice water given 06-19-2022 01:30-0400 Hourly Rounding Luis Carlos Jung [facility] Comment on above: Result Comment: updated on plan of care after speaking to dr jung. verb understanding and all d/c instructions provided. denies further needs/concerns. ambulates off unit without any further questions. 06-19-2022 01:00-0400 Hourly Rounding Luis Carlos Jung [facility] Comment on above: Result Comment: rests in bed on phone. d enies any needs. denies any pain at this time or any pain or cramping since arrival. call light within reach 06-19-2022 00:15-0400 Hourly Rounding Luis Carlos Jung [facility] 06-18-2022 23:54-0400 Body temperature 97.88 [degF] Luis Carlos Jung [facility] 06-18-2022 23:54-0400 Diastolic blood pressure 65 mm[Hg] Luis Carlos Jung [facility] 06-18-2022 23:54-0400 Heart rate 76 /min Luis Carlos Jung [facility] 06-18-2022 23:54-0400 Mean blood pressure 81 mm[Hg] Luis Carlos Jung [facility] 06-18-2022 23:54-0400 Respiratory rate 18 /min Luis Carlos Jung [facility] 06-18-2022 23:54-0400 Systolic blood pressure 112 mm[Hg] Luis Carlos Jung [facility] 06-18-2022 23:45-0400 Blood Pressure Location Luis Carlos Jung [facility] 05-01-2022 17:45-0400 Hourly Rounding Luis Carlos Jung [facility] Comment on above: Result Comment: reviewed disch inst and meds to take states understanding 05-01-2022 17:30-0400 Hourly Rounding Luis Carlos Jung [facility] 05-01-2022 17:23-0400 Body temperature 98.06 [degF] Luis Carlos Jung [facility] 05-01-2022 17:23-0400 Diastolic blood pressure 57 mm[Hg] Luis Carlos Jung [facility] 05-01-2022 17:23-0400 Heart rate 83 /min Luis Carlos Jung [facility] 05-01-2022 17:23-0400 Mean blood pressure 71 mm[Hg] Luis Carlos Jung [facility] 05-01-2022 17:23-0400 Respiratory rate 16 /min Luis Carlos Jung [facility] 05-01-2022 17:23-0400 Systolic blood pressure 99 mm[Hg] Luis Carlos Jung [facility] 05-01-2022 17:15-0400 Blood Pressure Location Luis Carlos Jung [facility] 05-01-2022 17:15-0400 Hourly Rounding Luis Carlos Jung [facility] 04-02-2022 13:30-0400 Hourly Rounding Luis Carlos Jung [facility] Comment on above: Result Comment: pt given discharge instr uctions at this time to follow up with fabiana sunday or states understanding to call office tomorrow for appointment 04-02-2022 12:30-0400 Hourly Rounding Luis Carlos Jung [facility] Comment on above: Result Comment: pt returns to bed from r estroom at this time denies discomfort at this time 04-02-2022 11:30-0400 Hourly Rounding Luis Carlos Jung [facility] Comment on above: Result Comment: pt sitting in bed at thi s time denies needs or discomfort 04-02-2022 06:28-0400 Body temperature 99.68 [degF] Luis Carlos Jung [facility] 04-02-2022 06:28-0400 Diastolic blood pressure 68 mm[Hg] Luis Carlos Jung [facility] 04-02-2022 06:28-0400 Heart rate 89 /min Luis Carlos Jung [facility] 04-02-2022 06:28-0400 Heart rate 86 /min Luis Carlos Jung [facility] 04-02-2022 06:28-0400 Mean blood pressure 83 mm[Hg] Luis Carlos Jung [facility] 04-02-2022 06:28-0400 Respiratory rate 20 /min Luis Carlos Jung [facility] 04-02-2022 06:28-0400 SaO2% (BldA) [Mass fraction] 98 % Luis Carlos Jung [facility] 04-02-2022 06:28-0400 Systolic blood pressure 114 mm[Hg] Luis Carlos Jung [facility] 03-23-2022 21:08-0400 Hourly Rounding Luis Carlos Jung [facility] Comment on above: Result Comment: Patient ambulatory off u nit. No signs or symptoms of distress noted. 03-23-2022 20:35-0400 Hourly Rounding Luis Carlos Jung [facility] Comment on above: Result Comment: Patient updated on plan of care. Verbalizes understanding. Call light in reach. 03-23-2022 19:49-0400 Blood Pressure Location Luis Carlos Jung [facility] 03-23-2022 19:49-0400 Body temperature 98.78 [degF] Luis Carlos Jung [facility] 03-23-2022 19:49-0400 Diastolic blood pressure 66 mm[Hg] Luis Carlos Jung [facility] 03-23-2022 19:49-0400 Heart rate 69 /min Luis Carlos Jung [facility] 03-23-2022 19:49-0400 Hourly Rounding Luis Carlos Jung [facility] Comment on above: Result Comment: Patient arrives on unit. 03-23-2022 19:49-0400 Mean blood pressure 79 mm[Hg] Luis Carlos Jung [facility] 03-23-2022 19:49-0400 Respiratory rate 16 /min Luis Carlos Jung [facility] 03-23-2022 19:49-0400 Systolic blood pressure 106 mm[Hg] Luis Carlos Jung [facility] 10-14-2020 13:15-0500 Pulse (Heart Rate) 74 /min [facility] 10-14-2020 13:15-0500 Pulse Oximetry 98 % [facility] 10-14-2020 13:15-0500 Respiratory Rate 16 /min [facility] 10-14-2020 13:00-0500 BP Diastolic 74 mm[Hg] [facility] 10-14-2020 13:00-0500 BP Systolic 123 mm[Hg] [facility] 10-14-2020 10:13-0500 BMI (Body Mass Index) 34.33 kg/m2 [facility] 10-14-2020 10:13-0500 Body Temperature 97.81 [degF] Regine Chow [facility] 10-14-2020 10:13-0500 Body weight 90.72 kg Regine Chow [facility] 10-14-2020 10:13-0500 Height 162.6 cm Regine Chow [facility] 08-09-2020 20:33-0400 BP Di[facility] 81 mm[facility]Hg[facility] [place] 08-09-2020 20:33-0400 BP Systolic 122 mm[Hg] [facility] 08-09-2020 20:33-0400 Pulse (Heart Rate) 78 /min [facility] 08-09-2020 20:33-0400 Respiratory Rate 16 /min [facility] [place] 08-09-2020 19:03-0400 BMI (Body Mass Index) 39.48 kg/m2 [facility] [place] 08-09-2020 19:03-0400 Body Temperature 98.29 [degF] [facility] 08-09-2020 19:03-0400 Body weight 104.33 kg [facility] 08-09-2020 19:03-0400 Height 162.6 cm [facility] 08-09-2020 19:03-0400 Pulse Oximetry 98 % [facility] [place] Encounters Encounter Date Encounter Type Care Provider Facility Start: 11-04-2023 End: 11-04-2023 OB Triage Rashaun PURVIS [facility] Start: 10-31-2023 End: 10-31-2023 ambulatory RASHAUN PURVIS Not Available Start: 10-18-2023 End: 10-18-2023 ambulatory DODIE MILLER Not Available Start: 10-03-2023 End: 10-03-2023 ambulatory DODIE ANGELA Not Available Start: 09-12-2023 End: 09-12-2023 ambulatory RASHAUN PURVIS Not Available Start: 08-23-2023 End: 08-23-2023 Lab Drop off ZORAN MYRICK [facility] Start: 08-23-2023 End: 08-24-2023 ambulatory GRADUATE INTERN ZORAN MYRICK Facility:[facility] Start: 08-19-2023 End: 09-14-2023 Pre-admission assessment Julia Haywood [facility] Start: 08-18-2023 End: 08-18-2023 ambulatory DO Julia Haywood Facility:[facility] Start: 08-18-2023 End: 08-18-2023 OB Triage Julia Gonsalez Andry [facility] Start: 07-25-2023 End: 07-25-2023 Emergency department patient visit Kristian Guillermo Facility:[facility] Start: 07-25-2023 End: 07-25-2023 Emergency department patient visit Kristian Guillermo [facility] Start: 06-28-2023 End: 06-29-2023 ambulatory Roverto Crow. Spasic Facility:[facility] Start: 06-28-2023 End: 06-28-2023 Patient encounter procedure Roverto V. Spasic [facility] Start: 06-14-2023 End: 06-14-2023 Emergency department patient visit Kristian Guillermo Facility:[facility] Start: 06-14-2023 End: 06-14-2023 Emergency department patient visit Kristian Guillermo [facility] Start: 06-12-2023 End: 06-13-2023 ambulatory Luis Carlos Jung Facility:[facility] Start: 06-12-2023 End: 06-12-2023 Patient encounter procedure Luis Carlos Jung [facility] Start: 05-21-2023 End: 05-22-2023 Emergency department patient visit DO Gopi Rodriguez Facility:[facility] Start: 05-21-2023 End: 05-21-2023 Emergency department patient visit Gopi Rodriguez [facility] Start: 04-30-2023 End: 05-01-2023 ambulatory Luis Carlos Jung Facility:[facility] Start: 04-30-2023 End: 04-30-2023 Lab Drop off Luis Carlos Jung [facility] Start: 04-30-2023 End: 05-01-2023 ambulatory Luis Carlos Jung Facility:[facility] Start: 04-30-2023 End: 04-30-2023 Patient encounter procedure Luis Carlos Jung [facility] Start: 04-26-2023 End: 04-26-2023 Emergency department patient visit Laura Noel Facility:[facility] Start: 04-26-2023 End: 04-26-2023 Emergency department patient visit Laura Noel [facility] Start: 01-31-2023 End: 01-31-2023 Emergency department patient visit Kristian Guillermo Facility:[facility] Start: 01-31-2023 End: 01-31-2023 Emergency department patient visit Kristian Guillermo [facility] Start: 09-24-2022 End: 09-27-2022 Evaluation and management of inpatient Luis Carlos Jung Facility:[facility] Start: 09-22-2022 End: 09-22-2022 ambulatory Luis Carlos Jung Facility:[facility] Start: 09-22-2022 End: 09-22-2022 OB Triage Luis Carlos Jung [facility] Start: 09-20-2022 End: 09-20-2022 ambulatory Luis Carlos Jung Facility:[facility] Start: 09-20-2022 End: 09-20-2022 OB Triage Luis Carlos Jung [facility] Start: 09-19-2022 End: 09-19-2022 ambulatory Jj MIKE Facility:[facility] Start: 09-19-2022 End: 09-19-2022 OB Triage Jj MIKE [facility] Start: 09-14-2022 End: 09-14-2022 ambulatory Luis Carlos Jung Facility:[facility] Start: 09-14-2022 Emergency department patient visit DO Miladysnadia Michael Facility:[facility] Start: 09-14-2022 End: 09-14-2022 OB Triage Luis Carlos Jung [facility] Start: 09-12-2022 End: 09-12-2022 ambulatory Luis Carlos Jung Facility:[facility] Start: 09-12-2022 End: 09-12-2022 OB Triage Luis Carlos Jung [facility] Start: 09-08-2022 End: 09-08-2022 ambulatory Luis Carlos Jung Facility:[facility] Start: 09-08-2022 End: 09-08-2022 OB Triage Luis Carlos Jung [facility] Start: 09-06-2022 End: 12-06-2022 ambulatory Luis Carlos Jung Facility:[facility] Start: 09-05-2022 End: 09-06-2022 Emergency department patient visit DO Gopi Rodriguez Facility:[facility] Start: 09-05-2022 End: 09-05-2022 Emergency department patient visit Gopi Rodriguez [facility] Start: 09-05-2022 End: 12-05-2022 Patient encounter procedure SELF REFERRAL [facility] Start: 09-04-2022 End: 09-05-2022 ambulatory Luis Carlos Jung Facility:[facility] Start: 09-04-2022 End: 09-04-2022 Lab Drop off Luis Carlos Rochelle Jung [facility] Start: 08-30-2022 End: 08-31-2022 ambulatory Luis Carlos Jung Facility:[facility] Start: 08-30-2022 End: 08-31-2022 OB Triage Luis Carlos Rochelle Jung [facility] Start: 08-22-2022 End: 08-22-2022 OB Triage Luis Carlos Rochelle Jung [facility] Start: 08-18-2022 End: 08-18-2022 OB Triage Luis Carlos Jung [facility] Start: 08-13-2022 End: 08-13-2022 OB Triage Luis Carlos Byrd Fabiana [facility] Start: 07-26-2022 End: 07-26-2022 OB Triage Luis Carlos Rochelle Jung [facility] Start: 07-17-2022 End: 07-17-2022 Emergency department patient visit Ko Dumas [facility] Start: 06-28-2022 End: 06-28-2022 Patient encounter procedure Luis Carlos Byrd Fabiana [facility] Start: 06-26-2022 End: 06-26-2022 OB Triage Luis Carlos Jung [facility] Start: 06-20-2022 End: 07-15-2022 Pre-admission assessment Luis Carlos Byrd Fabiana [facility] Start: 06-18-2022 End: 06-19-2022 OB Triage Luis Carlos Rochelle Jung [facility] Start: 05-02-2022 End: 06-15-2022 Pre-admission assessment THANG MILLAN [facility] Start: 05-01-2022 End: 05-01-2022 OB Triage Luis Carlos Jung [facility] Start: 04-02-2022 End: 04-02-2022 OB Triage Luis Carlos Jung [facility] Start: 03-23-2022 End: 03-23-2022 OB Triage Luis Carlos Rochelle Jung [facility] Start: 03-16-2022 End: 03-16-2022 Patient encounter procedure Luis Carlos Jung [facility] Start: 02-15-2022 End: 02-15-2022 Lab Drop off Luis Carlos Byrd Fabiana [facility] Start: 02-23-2021 End: 02-23-2021 Patient encounter procedure Martha Webb MD Work Phone: [facility] Start: 02-23-2021 Results Only Martha Webb MD Work Phone: Gastroenterology Start: 10-14-2020 End: 10-14-2020 Emergency department patient visit PHYSICIAN RONN [facility] Start: 10-14-2020 End: 10-14-2020 Emergency department patient visit Regine Chow Work Phone: [facility] Emergency Department Comment on above: Vertigo (Primary Dx) Start: 08-09-2020 End: 08-09-2020 Emergency department patient visit BAKARI Christopher [facility] Start: 08-09-2020 End: 08-09-2020 Emergency department patient visit [facility] Christopher [facility] Work Phone: [facility] ED Comment on above: Contusion of right k nee, initial encounter (Primary Dx); Contusion of multiple sites of right shoulder and upper arm, initial encounter Start: 07-23-2017 End: 07-23-2017 Emergency department patient visit NKECHI TORRES [facility] Guerra Procedures Date Procedure Procedure [...] 05-12-2028 Tetanus vaccination Tetanus: Every 1 0yrs [facility] Start: 06-15-2021 Influenza vaccination INFLUENZ A (Season Ended) [facility] Start: 06-15-2020 Influenza vaccination Flu vaccine (# 1) [place], [place] Start: 2014 PAP TESTING PAP TESTING [facility] Start: 2014 Screening for malign ant neoplasm of cervix Cervical cancer screen [place], [place] Start: 2012 DTaP/Tdap/Td vaccine (1 - Tdap) DTaP/Tdap/Td vaccine (1 - Tdap) [place] Start: 2012 Urine microalbumin profile DTAP,TDAP,TD (1 - Tdap) [facility] Start: 2011 Hepatitis C antibody , confirmatory test Hepatitis C Screening [facility] Start: 2011 HEPATITIS C SCREENING HEPATITIS C SC REENING [facility] Start: 2011 HIV SCREENING HIV SCREENING [facility] Start: 2008 HIV screening [facility] Keisha [place], [place] Start: 2005 Adolescent depressio n screening assessment [facility] Start: 2004 HPV vaccine (1 - 2-d ose series) HPV vaccine (1 - 2-dose series) [place] Start: 1996 History and physical examination, annual for health maintenance Wellness Visit [facility] Start: 1994 Varicella vaccine (1 of 2 - 2-dose childhood series) Varicella vaccine (1 of 2 - 2-dose childhood series) [place] Start: 1993 Screening for malign ant neoplasm of cervix Pap Smear [facility] PT ED PATIENT INFORMATION PT ED PATIENT INFORMATION Other 02/23/2021 [facility] Immunizations Immunization Date Immunization Notes Care Provider Lennox ramirez 08-18-2023 influenza, seasonal, injectable Julia Haywood [facility] 09-25-2022 influenza, seasonal, injectable SELF REFERRAL [facility] Comment on above: Early/Late Reason: E isaac/Late Reason: Nursing Judgment 01-28-2021 COVID-19, mRNA, LNP- S, PF, 30 mcg/0.3 mL dose; Translations: [Pfizer-BioNTech COVID-19 Vaccine] Luis Carlos Jung [facility] Comment on above: Reason for Medicatio n: Prophylaxis Reason for Medicatio n: Prophylaxis 12-31-2020 COVID-19, mRNA, LNP- S, PF, 30 mcg/0.3 mL dose; Translations: [Pfizer-BioNTech COVID-19 Vaccine] Luis Carlos Jung [facility] Comment on above: Reason for Medicatio n: Prophylaxis Reason for Medicatio n: Prophylaxis 05-12-2018 tetanus toxoid, reduced diphtheria toxoid, and acellular pertussis vaccine, adsorbed; Translations: [Adacel (Tdap)] Luis Carlos Jung [facility] Payers Date Payer Category Payer Unknown [id number] 2019 Unknown [id number] 1. [id number] 1993 Unknown [id number] 2.16.8 40.1.932405.3.579.2.173 1993 Unknown [id number] 2.16. 840.1.093807.3.579.2.903 1993 Unknown [id number] 2.16.8 40.1.128196.3.579.2.727 1993 Unknown [id number] 2.16.8 40.1.149829.3.579.2.727 1993 Unknown [id number] 2.16.8 40.1.675006.3.579.2.727 1993 Unknown [id number] 2.16.8 40.1.259035.3.579.2.727 1993 Unknown [id number] 2.16.8 40.1.130378.3.579.2.727 1993 Unknown [id number] 2.16.8 40.1.612993.3.579.2.727 1993 Unknown [id number] 2.16.8 40.1.264615.3.579.2.727 1993 Unknown [id number] 2.16.8 40.1.090563.3.579.2.727 1993 Unknown [id number] 2.16.8 40.1.989865.3.579.2.727 1993 Unknown [id number] 2.16.8 40.1.053514.3.579.2.72 1993 Unknown [id number] 2.16.8 40.1.986579.3.579.2.727 1993 Unknown [id number] 2.16.8 40.1.782728.3.579.2. 1993 Unknown [id number] 2.16.8 40.1.893787.3.579.2. 1993 Unknown [id number] 2.16.8 40.1.660873.3.579.2. 1993 Unknown [id number] 2.16.8 40.1.493110.3.579.2. 1993 Unknown [id number] 2.16.8 40.1.494941.3.579.2. 1993 Unknown [id number] 2.16.8 40.1.781678.3.579.2.7 1993 Unknown [id number] 2.16.8 40.1.786655.3.579.2. 1993 Unknown [id number] 2.16.8 40.1.864651.3.579.2.7 1993 Unknown [id number] 2.16.8 40.1.436329.3.579.2. 1993 Unknown [id number] 2.16.8 40.1.262476.3.579.2. 1993 Unknown [id number] 2.16.8 40.1.360997.3.579.2. 1993 Unknown [id number] 2.16.8 40.1.786580.3.579.2. 1993 Unknown [id number] 2.16.8 40.1.141098.3.579.2. 1993 Unknown [id number] 2.16.84 0.1.299165.3.579.2.1259 1993 Unknown [id number] 2.16.840 .1.160078.3.579.2.1259 1993 Unknown [id number] 2.16.840 .1.826797.3.579.2.1259 1993 Unknown [id number] 2.16.840 .1.076010.3.579.2.1259 1993 Unknown [id number] 2.16.840 .1.812048.3.579.2.1259 Social History Date Type Detail Facility Start: 08-09-2020 End: 10-14-2020 Tobacco smoking status NHIS Current every day smoker [place] Start: 08-09-2020 End: 10-14-2020 Tobacco use and exposure Never used [place] Start: 10-14-2020 Alcohol intake Ex-drinker (finding) [facility] Start: 1993 Sex Assigned At Not on file M [place], [place] Exposure to SARS-CoV -2 (event) Not sure [place] Start: 08-09-2020 Cigarettes smoked current (pack per day) - Reported [place] Start: 08-09-2020 Alcohol intake Lifetime non-d val (finding) [place] Start: 08-09-2020 History SDOH Alcohol Frequency 1 [place] Start: 07-06-2021 End: 08-18-2022 Tobacco smoking status Light tobacco smoker (finding) [facility] Sex Assigned At Female [facility] Tobacco [facility] Comment on above: current current denies Start: 06-28-2023 Tobacco smoking status Ex-smoker (fi nding) [facility] Comment on above: current [facility] above: current Tobacco smoking status No Smokin g Status Entered [facility] Functional Status Date Assessment Result Facility 11-04-2023 Functional Status N/A [facility] 08-18-2023 Functional Status N/A [facility] 07-25-2023 Functional Status N/A [facility] 06-28-2023 Functional Status N/A [facility] 06-14-2023 Functional Status N/A [facility] 05-21-2023 Functional Status N/A [facility] 04-26-2023 Functional Status N/A [facility] 01-31-2023 Functional Status N/A [facility] 09-22-2022 Functional Status N/A [facility] 09-20-2022 Functional Status N/A [facility] 09-19-2022 Functional Status N/A [facility] 09-14-2022 Functional Status N/A [facility] 09-12-2022 Functional Status N/A [facility] 09-08-2022 Functional Status N/A [facility] 09-05-2022 Functional Status Yes [facility] 08-30-2022 Functional Status N/A [facility] 08-22-2022 Functional Status N/A [facility] 08-18-2022 Functional Status N/A [facility] 08-13-2022 Functional Status N/A [facility] 07-26-2022 Functional Status N/A [facility] 07-17-2022 Functional Status N/A [facility] 06-26-2022 Functional Status N/A [facility] 06-18-2022 Functional Status N/A [facility] 05-01-2022 Functional Status N/A [facility] 04-02-2022 Functional Status N/A [facility] Clinical Notes 03-10-2021 to 11-04-2023 Note Date & Type Note Facility 11-04-2023 Evaluation + Plan note Diagnostic Tests PendingUrine Culture 11/04/23 [facility] 11-04-2023 Hospital Discharg e instructions Follow Up Care 11/04/2023 07:55:34 With:Rashaun PURVIS Address: [address] [place] [address]- Business (1) When:11/06/2023 Comments:Call for any problems.Appointment has already been scheduledCall physician if symptoms worsenPlease call if you need to rescheduleReturn for contractions closer, longer, harderReturn for decreased movementReturn if ruptured membranes or vaginal bleeding [facility] 08-23-2023 Evaluation + Plan note Diagnostic Tests PendingT3 Total 08/23/23 [facility] 08-18-2023 Note The following Patien t Education Materials have been given to the patient: EducationMaterial [facility] 08-18-2023 Hospital Discharg e instructions Patient Education 08/18/2023 08:14:46 Second Trimester of , Ttyj-gj-Worj Second Trimester of The second trimester of [...] Follow these instructions at home: Medicines Take ejht-zfk-ebciolr and prescription medicines only as told by [...] a counselor. Where to find more information [place] [employer]: americanpregnancy.org [employer] [employer]nec[employer]: www.acog.org Office [...] provider. Document Revised: 03/09/2021 Document Reviewed: 01/13/2021 [employer] Patient Education 2022 [employer] [facility] 07-25-2023 Evaluation + Plan note Extrac francisca from: Title:ED Note Author:Prachi NICHOLS, Jorge Hernandez e:07/25/23 Abdominal cramping (R10.9: U nspecified abdominal pain) Vaginal spotting (N93.9: Abnormal uterine and vaginal bleeding, unspecified) Orders: ABO/Rh Automated Diff Basic Metabolic Panel Beta hCG Quantitative CBC w/ Auto Diff eGFR Extra Blue Tube Extra SST Tube Hepatic Function Panel Lipase Level UA With Cult Reflex Urine Culture US Limited Diagnostic Tests Pending * Urine Culture 07/25/23 [facility]10-11-2023 Hospital Discharge instructions Patient Education 07/25/2023 [...] to keep your urine pale yellow. Take yqmc-fpf-xcyabbl and prescription medicines only as told by [...] provider. Document Revised: 06/14/2021 Document Reviewed: 06/14/2021 [employer] Patient Education 2022 [employer] [facility] 07/25/2023 08:14:26 With:Luis Carlos Jung Address: [address], [place] [address]- [facility] (1) When:07/28/2023 09:56:27 [facility]09-14-2023 Evaluation + Plan note Diagnostic Tests Pending * Urine Culture 06/28/23 [facility]09-14-2023 Hospital Discharge instructions Patient Education 06/28/2023 11:39:14 Urinary Tract Infection, Adult, Eqby-ju-Qcbd Urinary Tract Infection, Adult A urinary tract [...] Follow these instructions at home: Medicines Take dpef-ptr-ynvvegb and prescription medicines only as told by [...] provider. Document Revised: 05/13/2021 Document Reviewed: 05/13/2021 [employer] Patient Education 2022 [employer] 06/28/2023 11:39:14 Urinary Tract Infection, Adult, Xoif-zp-Brel Urinary Tract Infection, Adult A urinary tract [...] Follow these instructions at home: Medicines Take ycxd-etr-tbjaphm and prescription medicines only as told by [...] provider. Document Revised: 05/13/2021 Document Reviewed: 05/13/2021 [employer] Patient Education 2022 [employer] Follow Up Care 06/28/2023 10:22:58 With:Fabiana MARION, Luis Carlos Byrd, [facility] Address: [address] [place] [address]- When: Unknown [facility] 08-31-2023 Evaluation + Plan noteExtracted from: Title:ED Note Author:Jos Ugalde PA-C te:06/14/23 1. Abdominal pain (R10.9: Un specified abdominal pain) Orders: ABO/Rh Automated Diff Basic Metabolic Panel Beta hCG Quantitative CBC w/ Auto Diff eGFR Extra Blue Tube Extra SST Tube Hepatic Function Panel Lipase Level UA With Cult Reflex US 1st Trimester [facility]08-08-2023 Hospital Discharge instructions Patient Education 05/21/2023 23:23:44 Nonspecific Chest Pain, Adult, Pjuu-od-Jgtv Nonspecific Chest Pain Chest pain can be [...] Follow these instructions at home: Medicines Take qoyg-kmt-xsirwvz and prescription medicines only as told by [...] ?Eating a heart-healthy diet. A diet and child nutrition assistant (dietitian) can help you to learn healthy [...] provider. Document Revised: 12/15/2021 Document Reviewed: 12/15/2021 [employer] Patient Education 2022 [employer] 05/21/2023 23:23:44 Nausea and Vomiting, Adult, Yhxc-bu-Lkhl Nausea and Vomiting, Adult Nausea is feeling [...] fruit juice). ?Low-calorie sports drinks. Eat bland, rovi-th-yycwhd foods in small amounts as you are able, such as: ?Bananas. ?Applesauce. ?Rice. ?Low-fat (lean) meats. ?[place]. ?Crackers. Avoid drinking fluids that have a lot of sugar or caffeine in them. This includes energy drinks, sports drinks, and soda. Avoid alcohol. Avoid spicy or fatty foods. General instructions Take kgsv-kgz-ayjcqvg and prescription medicines only as told by your doctor. Drink enough fluid to keep your pee (urine) pale yellow. Wash your hands often with soap and water for at least 20 seconds. If you cannot use soap and water, use hand animal cytologist. Make sure that everyone in your home [...] your doctor about eating and drinking. Take gxxp-zzb-sxmmydr and prescription medicines only as told by your doctor. Contact your doctor if your symptoms get worse or you have new symptoms. Keep all follow-up visits. This information is not intended to replace advice given to you by your health care provider. Make sure you discuss any questions you have with your health care provider. Document Revised: 04/07/2022 Document Reviewed: 04/07/2022 [employer] Patient Education 2022 [employer] 05/21/2023 23:23:44 Abdominal Pain During , Blde-oc-Pzfx Abdominal Pain During Belly (abdominal) pain is [...] keep your pee (urine) pale yellow. Take ifgc-gfg-jldqnye and prescription medicines only as told by [...] provider. Document Revised: 06/14/2021 Document Reviewed: 06/14/2021 [employer] Patient Education 2022 [employer] Follow Up Care 05/21/2023 20:38:52 With:Luis Carlos Jung Address: [facility] [place] [id number] Business (1) When:05/24/2023 Comments:Take the Pepcid once daily until you have completed the course. You can use the Zofran every 6 hours as needed for nausea and vomiting. Please follow-up with your primary care doctor next 2 to 3 days. Please return to the ED for any new or worsening symptoms. [facility]08-07-2023 Evaluation + Plan noteExtracted from: Title:ED [...] day(s), # 15 cap(s), Refills(s) 0, Pharmacy: [facility], 162.6, cm, 05/21/23 20:50:00 EDT, Height/Length Dosing, 75.3, kg, 05/21/23 20:50:00 EDT, Weight Dosing famotidine, 20 mg = 2 mL, Soln-IV, IV Push, Once, Stop date 05/21/23 21:00:00 EDT, STAT, Start date 05/21/23 21:00:00 EDT, 05/21/23 21:00:00 EDT famotidine, 20 mg = 1 tab(s), Oral, Daily, # 14 tab(s), Refills(s) 0, Pharmacy: [facility], 162.6, cm, 05/21/23 20:50:00 EDT, Height/Length Dosing, 75.3, kg, 05/21/23 20:50:00 EDT, Weight Dosing ondansetron, 4 mg = 2 mL, Injection, IV Push, Once, Stop date 05/21/23 21:00:00 EDT, STAT, Start date 05/21/23 21:00:00 EDT, 05/21/23 21:00:00 EDT ondansetron, 4 mg = 1 tab(s), Oral, q8hr, # 12 tab(s), Refills(s) 0, Pharmacy: [facility], 162.6, cm, 05/21/23 [...] UA With Cult Reflex US 1st Trimester [facility]07-17-2023 Evaluation + Plan note Diagnostic Tests Pending * PAP [id number] 04/30/23 * Urine Culture 04/30/23 [facility]07-17-2023 Evaluation + Plan note Diagnostic Tests Pending * RPR with Conf Rfx 04/30/23 * HIV Screen 4th Generation wRfx 04/30/23 * Rubella Antibody IgG 04/30/23 * Hepatitis B Surface Antigen 04/30/23 [facility]07-13-2023 Evaluation + Plan noteExtracted from: Title:ED Note Author:Jos Ugalde PA-C te:04/26/23 Abdominal pain (R10.9: Unspe cified abdominal pain) (Z34.90: Encounter for supervision of normal , unspecified, unspecified trimester) Orders: Beta hCG Quantitative Extra Lav Tube Extra SST Tube US 1st Trimester US Transvaginal [facility]07-13-2023 Hospital Discharge instructions Patient Education 04/26/2023 [...] to keep your urine pale yellow. Take nldl-aps-tyubuij and prescription medicines only as told by [...] provider. Document Revised: 06/14/2021 Document Reviewed: 06/14/2021 [employer] Patient Education 2022 [employer] Follow Up Care 04/26/2023 08:52:22 With:Luis Carlos Jung Address: [address] [place], [place] [phone] Business (1) When:04/29/2023 10:58:02 [facility]04-19-2023 Evaluation + Plan noteExtracted from: Title:ED [...] Head eGFR Oxygen Therapy PT & PTT [facility]04-19-2023 Hospital Discharge instructions Patient Education 01/31/2023 [...] Follow these instructions at home: Medicines Take cuwg-mvy-alqbbru and prescription medicines only as told by your health care provider. Ask your health care provider if the medicine prescribed to you: ?Requires you to avoid driving or using heavy machinery. ?Can cause constipation. You may need to take these actions to prevent or treat constipation: ?Drink enough fluid to keep your urine pale yellow. ?Take barg-hzm-viteqof or prescription medicines. ?Eat foods that are [...] provider. Document Revised: 01/23/2020 Document Reviewed: 11/13/2019 [employer] Patient Education 2022 [employer] Follow Up Care 01/31/2023 09:42:02 With:THANG MILLAN Address: [address] [place] [address]- Business (1) When:02/03/2023 11:57:07 Comments:Call the office [...] fever, or any new or worsening symptoms. [facility]12[facility]16[facility] Comment: Electronically Signed By: Luis Carlos Jung MD\.br\Date and Time Signed: 09/29/22 09:25 [id number] [facility] Comment on above:Result Comment: Electronically Signed By: Luis Carlos Jung MD\.br\Date and Time Signed: 09/29/22 09:25 [id number] NoteThe following Patient Education Materials have been given to the patient: [facility]12-09-2022 NoteThe following Patient Education Materials have been given to the patient: [facility]12-09-2022 Hospital Discharge instructions Follow Up Care 09/22/2022 15:11:14 With:Luis Carlos Jung Address: [facility] [address] [address] [address] [address]- Business (1) When:09/24/2022 20:30:00 Comments:Appointment has already been scheduledCall for any problems.Call for fever > 100.5 FCall for severe abdominal painCall physician for heavy vaginal bleedingCall physician if symptoms worsenReturn for contractions closer, longer, harderReturn for decreased movementReturn if ruptured membranes or vaginal bleedingCall at 7:30 pm Sunday to confirm induction at 8:30 [facility]12-07-2022 NoteThe following Patient Education Materials have been given to the patient: [facility]12-06-2022 NoteThe following Patient Education Materials have been given to the patient: [facility]12-06-2022 Hospital Discharge instructions Follow Up Care 09/19/2022 01:24:08 With:Luis Carlos Jung Address: [facility] [address], [address] [address] Business (1) When:09/20/2022 Comments:Appointment has already been scheduledCall Dr if fever>100.5 F, heavy bleedingCall for any problems.Call for severe abdominal painCall physician for heavy vaginal bleedingCall physician if symptoms worsenReturn for contractions closer, longer, harderPlease call if you need to rescheduleReturn for decreased movementReturn if ruptured membranes or vaginal bleeding [facility]12-01-2022 NoteThe following Patient Education Materials have been given to the patient: [facility]12-01-2022 Hospital Discharge instructions Patient Education 09/14/2022 11:56:10 Sinus Headache, Xyrd-gf-Vrzt Sinus Headache A sinus headache happens when [...] on the bottle or box. Medicines Take rhqz-hxu-gqgdglm and prescription medicines only as told by [...] face, forehead, ears, or upper teeth. Take vrgd-qph-wjmzcrh and prescription medicines only as told by your doctor. If told, apply a warm, moist washcloth to your face. This can help to lessen pain. This information is not intended to replace advice given to you by your health care provider. Make sure you discuss any questions you have with your health care provider. Document Released: 01/31/2012 Document Revised: 09/13/2018 Document Reviewed: 07/12/2018 [employer] Patient Education 2020 [employer] Follow Up Care 09/14/2022 09:13:06 With:Luis Carlos Jung Address: [address] [place], [place] [phone] Business (1) When:09/20/2022 Comments:Return if ruptured membranes or vaginal bleedingReturn for decreased movementReturn for contractions closer, longer, harderCall physician if symptoms worsenCall for severe abdominal painCall for fever > 100.5 F Drink 8-10 glasses of water/day Use SUDAFED, TYLENOL AND BENADRYL as previouslydirected by Dr Fabiana Longoria - [facility]11-29-2022 NoteThe following Patient Education Materials have been given to the patient: [facility] Hospital Discharge instructions Patient Education 09/12/2022 20:39:28 Third Trimester of , Fsmj-cb-Nqoe Third Trimester of The third trimester is from week 28 through week 40 (months 7 through 9). This trimester is when your unborn baby (fetus) is growing very fast. At the end of the ninth month, the unborn baby is about20 inches in length. It weighs about 6 10 pounds. Follow these instructions at home: Medicines Take uhkz-qam-sfkbsxm and prescription medicines only as told by [...] 12/26/2010 Document Revised: 01/22/2020 Document Reviewed: 11/06/2017 [employer] Patient Education 2019 [employer] Follow Up Care 09/12/2022 19:44:10 With:Luis Carlos Jung Address: [address] [address] Business (1) When:09/20/2022 Comments:Appointment has already been scheduledCall Dr if fever>100.5 F, heavy bleedingCall for any problems.Call for severe abdominal painCall physician for heavy vaginal bleedingCall physician if symptoms worsenPlease call if you need to rescheduleReturn for contractions closer, longer, harderReturn for decreased movementReturn if ruptured membranes or vaginal bleeding [facility]11-25-2022 NoteThe following Patient Education Materials have been given to the patient: [facility] Hospital Discharge instructions Follow Up Care 09/08/2022 08:14:23 With:Luis Carlos Jung Address: [address], [address] [address]- Business (1) When:09/11/2022 Comments:Return for contractions closer, longer, harderReturn for decreased movementReturn if rupturedmembranes or vaginal bleeding [facility]11-23-2022 Hospital Discharge instructions Patient Education 09/05/2022 [...] the coronavirus come from? In September 2019, [place] told the World Health Organization (WHO) of several cases of lung disease (human respiratory illness). These cases were linked to an open seafood and livestock market in the city of [facility]. The link to the seafood and livestock [...] and virus naming World Health Organization (WHO): www.who.int/emergencies/diseases/qcdkz-wqvcnwjenym-4702/technical-g uidance/alaeph-gso-gckweghofzg-disease-(covid-2019)-dwb-yoa-puluz-kzea-ntswqo-rh Who is at risk for complications from [...] relieve his or her symptoms by using zagw-wag-kklnnou medicines that treat sneezing, coughing, and runny [...] water are not available, use alcohol-based hand animal cytologist. Avoid touching your face, mouth, nose, or [...] Prevention (CDC): www.cdc.gov/coronavirus/2019-ncov/travelers/index.html World Health Organization (WHO): www.who.int/emergencies/diseases/lryvj-rtpccmlxahx-7382/travel-advice Know the risks and take action to [...] water are not available, use alcohol-based hand animal cytologist. Cough or sneeze into a tissue, sleeve, [...] in hot, soapy water or use a research/program director. Air-dry your dishes. Wash laundry in hot [...] Health Organization (WHO) Information and news updates: www.who.int/emergencies/diseases/bqczg-qczbmwddspf-6268 Coronavirus health topic: www.who.int/health-topics/coronavirus Questions and answers on COVID-19: www.who.int/news-room/q-a-detail/d-n-yihfgzdbxfzrt Global tracker: who.[place] [employer] (AAP) Information for families: www.healthychildren.org/Citizen Of [place]/health-issues/conditions/chest-[email or web address]/Pages /[email or web address]-Arsow-Xbhnwiwwmzv.aspx The coronavirus situation is changing rapidly. Check your local health authority website or the [facility] WHO websites for updates and news. When [...] 01/27/2020 Document Revised: 01/27/2020 Document Reviewed: 01/27/2020 [employer] Patient Education 2020 [employer] 09/05/2022 22:13:40 COVID-19 COVID-19 COVID-19 is a [...] to fight infection (immunocompromised). Live in a half-way or long-term care facility. Have a long-term [...] managed at home with rest, fluids, and vcsp-low-wxqnlvb medicines. Treatment for a serious infection usually [...] are safe for you. General instructions Take vdrq-wbp-jnqqzan and prescription medicines only as told by [...] water are not available, usean alcohol-based hand animal cytologist. ?Avoid touching your mouth, face, eyes, or [...] water are not available, use alcohol-based hand animal cytologist. Stay away from other members of your [...] have a weak immunity, live in a half-way, or have chronic disease. There is no [...] 11/06/2019 Document Revised: 02/26/2020 Document Reviewed: 11/06/2019 [employer] Patient Education 2019 [employer] Follow Up Care 09/05/2022 20:08:29 With:Luis Carlos Jung Address: [address] [place], [place] [address] [address] Business (1) When:09/08/2022 21:42:10 Comments:Use the albuterol inhaler 2 puffs every 4 hours for the next 2 to 3 days, you can use the Zofran every 6 hours as needed for nausea and vomiting. Please follow-up with your primary care doctor in thenext 2 to 3 days. Please return to the ED for any new or worsening symptoms. With:THANG MILLAN Address: [address] [place] [address] Business (1) When:09/08/2022 21:42:06 [facility]11-22-2022 Evaluation + Plan noteExtracted from: Title:ED [...] Nausea/Vomiting, # 12 tab(s), Refills(s) 0, Pharmacy: [facility], 163, cm, 09/05/22 [...] Therapy PT & PTT Rapid COVID Antigen ([facility]) Saline Lock Insert Troponin 0 Hr. XR Chest Single View Future Appointments Appointment Date:09/06/2022 07:00:00 AM Scheduled Provider: Location:[facility] Appointment Type:Outpatient COVID Testing [facility]11-21-2022 Evaluation + Plan note Diagnostic Tests Pending * Group B Streptococcus colonization by PCR 09/04/22 [facility]11-17-2022 NoteThe following Patient Education Materials have been given to the patient: [facility] Discharge instructions Patient Education 08/31/2022 00:56:47 Third Trimester of , Mpcz-oh-Crfx Third Trimester of The third trimester is from week 28 through week 40 (months 7 through 9). This trimester is when your unborn baby (fetus) is growing very fast. At the end of the ninth month, the unborn baby is about20 inches in length. It weighs about 6 10 pounds. Follow these instructions at home: Medicines Take cpqo-wsl-glzanvk and prescription medicines only as told by [...] 12/26/2010 Document Revised: 01/22/2020 Document Reviewed: 11/06/2017 [employer] Patient Education 2019 [employer] Follow Up Care 08/30/2022 21:31:53 With:Luis Carlos Jung Address: [address] [address]- Business (1) When:09/04/2022 Comments:Call for any problems.Call for severe abdominal painCall physician for heavy vaginal bleedingReturnfor contractions closer, longer, harderReturn for decreased movementReturn if ruptured membranes or vaginal bleeding [facility]11-08-2022 Hospital Discharge instructions Follow Up Care 08/22/2022 14:58:59 With:Dr. 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 [facility]11-04-2022 Evaluation + Plan note Diagnostic Tests Pending * Urine Culture 08/18/22 [facility]11-04-2022 Hospital Discharge instructions Follow Up Care 08/18/2022 03:47:49 With:Luis Carlos Jung Address: [address] [address]- Business (1) When:08/21/2022 08:45:00 Comments:Appointment has already been scheduled, please keep scheduled apptCall for any problems.Call physician if symptoms worsen [facility]10-30-2022 Hospital Discharge instructions Patient Education 08/13/2022 [...] Document Reviewed: 11/09/2016 Elsevier Patient Education 2020 Else[employer] Inc. 08/13/2022 19:55:11 Monitoring Overview Monitoring Overview [...] 09/21/2003 Document Revised: 06/25/2018 Document Reviewed: 04/30/2017 [employer] Patient Education 2020 [employer] Follow Up Care 08/13/2022 17:29:42 With:Luis Carlos Jung Address: [facility] [address] [place] [id number] [facility] (1) When:1 to 2 days Comments:Call for any problems.Return for contractions closer, longer, harderReturn for decreased movementReturn if ruptured membranes or vaginal bleeding [facility]10-13-2022 Hospital Discharge instructions Follow Up Care 07/27/2022 01:12:54 With:Dr. Jung [phone] Address:Unknown When:09/24/2022 20:30:00 Comments:Call for any problems.Return if ruptured membranes or vaginal bleedingReturn for decreased movementcontractions every 5 minutes lasting 45 seconds for an hourCall Sunday night at 7:30 PM to assure bed availability for induction [facility]10-12-2022 Hospital Discharge instructions Patient Education 07/26/2022 [...] Follow these instructions at home: Medicines Take pfwh-ysy-qyqjsmc and prescription medicines only as told by [...] as fried or sweet foods. ?Take an dtwr-azv-oqidjjj or prescription medicine for constipation. If you [...] 12/28/2009 Document Revised: 05/28/2019 Document Reviewed: 11/11/2018 [employer] Patient Education 2020 [employer] Follow Up Care 07/26/2022 07:56:25 With:Luis Carlos Jung Address: [address] [address]- Business (1) When:08/07/2022 07:45:00 [facility]10-03-2022 Evaluation + Plan noteExtracted from: Title:ED Note Author:Mathew NICHOLS, [place] Hath[place] te:07/17/22 UTI (urinary tract infection ) (N39.0: Urinary tract infection, site not specified) Orders: cephalexin, 500 mg = 1 cap(s), Oral, q12hr, X 5 day(s), # 10 cap(s), Refills(s) 0, Pharmacy: [facility] 1987, 162.5, cm, 07/17/22 9:09:00 EDT, Height/Length Dosing, 80, kg, 07/17/22 9:09:00 EDT, Weight Dosing Patient Specific Meds, Each, Misc, Once, Stop date 07/17/22 9:10:34 EDT, Physician Stop, 07/17/22 9:10:34 EDT Influenza A&B Ag Rapid COVID Antigen ([facility]) UA With Cult Reflex [facility]10-03-2022 Hospital Discharge instructions Patient Education 07/17/2022 [...] 01/26/2012 Document Revised: 01/23/2020 Document Reviewed: 09/04/2019 [employer] Patient Education 2020 [employer] 07/17/2022 09:55:44 Urinary Tract Infection, Adult Urinary [...] Treatment for this condition includes: Antibiotic medicine. Tcru-vqp-rdpklwb medicines to treat discomfort. Drinking enough water [...] Follow these instructions at home: Medicines Take tvvz-glo-xfhcscp and prescription medicines only as told by [...] 07/11/2006 Document Revised: 09/18/2019 Document Reviewed: 04/10/2019 [employer] Patient Education 2020 [employer] Follow Up Care 07/17/2022 09:04:38 With:Luis Carlos Jung Address: [address], [facility] [address] [place] [address] Business (1) When:07/20/2022 09:46:49 With:THANG MILLAN Address: [address] [place] [address] Business (1) When:07/20/2022 09:46:41 Comments:Follow-up with your primary care provider in 3 to 5 days. If symptoms worsen, do not improve, or new symptoms arise please report back to emergency department for further evaluation. [facility]09-14-2022 Evaluation + Plan note Diagnostic Tests Pending * RPR with Conf Rfx 06/28/22 [facility]09-12-2022 Hospital Discharge instructions Patient Education 06/26/2022 [...] 09/21/2003 Document Revised: 06/25/2018 Document Reviewed: 04/30/2017 [employer] Patient Education 2020 [employer] 06/26/2022 21:35:59 Form - Movement Counts Movement [...] Document Reviewed: 11/09/2016 Elsevier Patient Education 2020 [employer] Follow Up Care 06/26/2022 20:41:33 With:Luis Carlos Jung Address: [address] [address] Business (1) When:07/03/2022 07:45:00 Comments:Call for any problems.Please call if you need to rescheduleReturn for decreased movement [facility]09-05-2022 Hospital Discharge instructions Follow Up Care 06/18/2022 23:33:38 With:Lius Carlos Jung Address: [address] [address]- Business (1) When:5 to 7 days Comments:Appointment has already been scheduledCall for any problems.Call for fever > 100.5 FCall for severe abdominal painCall physician for heavy vaginal bleedingPlease call if you need to rescheduleReturn for contractions closer, longer, harderReturn for decreased movementReturn if ruptured membranes or vaginal bleeding [facility]07-18-2022 Hospital Discharge instructions Follow Up Care 05/01/2022 17:08:54 With:Luis Carlos Jung Address: [place] [address]- Business (1) When:05/09/2022 Comments:Return if ruptured membranes or vaginal bleedingReturn for contractions closer, longer, harderCall physician if symptoms worsenCall physician for heavy vaginal bleedingCall for severe abdominal painCall for fever > 100.5 FCall for any problems. drink more fluids including gatorade, take milk of magnesia twice /day until yo u have bowel movements, benefiber daily [facility]06-19-2022 Evaluation + Plan note Diagnostic Tests Pending * Urine Culture 04/02/22 [facility]06-19-2022 Hospital Discharge instructions Patient Education 04/02/2022 10:22:48 Second Trimester of , Fpra-gx-Sftv Second Trimester of The second trimester is [...] Follow these instructions at home: Medicines Take kqcg-yvw-ydwcoew and prescription medicines only as told by [...] 12/26/2010 Document Revised: 01/23/2020 Document Reviewed: 11/06/2017 [employer] Patient Education 2020 [employer] 04/02/2022 10:22:48 Vaginal Bleeding During , Second [...] says that this is safe. Medicines Take ivem-pge-mdykhiv and prescription medicines only as told by [...] 07/11/2006 Document Revised: 01/20/2020 Document Reviewed: 01/03/2018 [employer] Patient Education 2019 [employer] Follow Up Care 04/02/2022 06:00:26 With:Dr. Jung [phone] Address:Unknown When:2 to 3 days Comments:Call for any problems.Call physician if symptoms worsen [facility]06-09-2022 Hospital Discharge instructions Patient Education 03/23/2022 20:39:21 Second Trimester of , Mwkx-ig-Aaet Second Trimester of The second trimester is [...] Follow these instructions at home: Medicines Take ytrs-qli-tvirdjx and prescription medicines only as told by [...] 12/26/2010 Document Revised: 01/23/2020 Document Reviewed: 11/06/2017 [employer] Patient Education 2020 [employer] 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 Avoid heavy [...] grounds. You are around people who have Armenian measles, fifth disease, or chickenpox. You have [...] 03/19/2009 Document Revised: 01/22/2020 Document Reviewed: 10/09/2017 [employer] Patient Education 2020 [employer] 03/23/2022 20:39:21 Abdominal Pain During , Hgtj-gf-Zjfq Abdominal Pain During Belly (abdominal) pain is [...] keep your pee (urine) pale yellow. Take zelx-ehs-rdcmtmz and prescription medicines only as told by [...] 09/19/2010 Document Revised: 01/19/2020 Document Reviewed: 01/03/2018 [employer] Patient Education 2020 [employer] Follow Up Care 03/23/2022 19:35:57 With:Luis Carlos Jung Address: [address] [place], [place] [address], [address] [address] [facility] (1) When:03/27/2022 10:00:00 Comments:Call for any problems. Call [facility] first, ask to speak directly to Dr. Jung before heading to hospital unless an emergency. Call for severe abdominal pain or worsening pain.Return if vaginal bleedingor ruptured membranes.Wear belly band as much as possible, especially as your belly grows in . [facility]05-04-2022 Evaluation + Plan note Diagnostic Tests Pending * RPR with Conf Rfx 02/15/22 * HIV Screen 4th Generation wRfx 02/15/22 * Rubella Antibody IgG 02/15/22 * Hepatitis B Surface Antigen 02/15/22 * Urine Culture 02/15/22 [facility]06-18-2021 NoteHNO ID: [id number] Author: Bert Negrete, DO Service: ? Author Type: Fellow Type: Progress Notes Filed: 04/01/2021 9:15 AM Note Text: [facility] [address] [place], [place] [address] Martha Webb (Kelsey) [address] [facility] [address] PCP: Thang Millan NP Accompanied by: Mother [...] bed and continue this dose - rizatriptan (MAXALT-PIEROGI MAKER) 10 mg disintegrating tablet Take 1 tablet [...] Transformed Score (ran (more content not included)... [facility]06-10-2021 NoteHNO ID: [id number] Author: Karen Vinson RT(R) Service: Nuclear Medicine Author Type: Consumer Loan Processor Type: Progress Notes Filed: 03/24/2021 9:39 AM [...] 0740 PATIENT DISCHARGED TO: Ambulatory patient, left [place] department area. A Diagnostic radioactive procedure has taken place, with no further precautions necessary other than routine body substance precautions. More information regarding radiation safety can be found using this link: [email or web address]%20Medicine%[email or web address] SIGNATURE: RT Oliva(R) PATIENT NAME: Susan Bro DATE: March 24, 2021 TIME: 9:38 AM PAGER/CONTACT #:[facility]05-27-2021 NoteHNO ID: [id number] Author: Martha Webb MD Service: ? Author Type: Physician Type: Progress Notes Filed: 03/10/2021 12:03 PM Note Text: This note was created using NoteWriter. Subjective Susan Bro is a 25 year [...] biliary ductal dilatation is (more content not included)...[facility] Narrative No data available for this section [facility] No data available for this section [facility] No data available for this section [facility] Summary Purpose Family History No Family [...] Documents on File Type Date Recorded Patient Associate [employer] kenneth Advance Directives and Reggie kelly Will 10/14/2020 10:22 AM Documents on File Type Date Recorded Patient Associate [employer] anation ACP-Advance Directive 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 When you make an appointment with [facility], it's the start of a long-lasting partnership that's committed to your health. We provide the very best prevention, wellness and illness care, and give you access to the advanced medical services and expert treatment available at [facility]. Please note that the provider listed below is accepting patients in your area. [place]: [address] [place] [address] MD Debby Lala MD Christina Spring, CNP For the most up-to-date information on a care provider in your community, use the Find a Doctor tool on [email or web address] [facility] Physician [facility] Primary Care * Attachments The following attachments cannot be sent through Care Everywhere. * Vertigo ([place]izen [place]) * Arik Maneuver: Vertigo: Exercises ([place]) documented in this encounter* Instructions* Bakari Valente [...] be sent through Care Everywhere. * Bruises ([place]izen [place]) * Contusion ([place]) documented in this encounter Assessments Diagnosis Vertigo- Primary Dizziness and giddiness Diagnosis Contusion of right knee, initial encounter Contusion of multiple sites of right shoulder and upper arm, initial encounter Additional Source Comments INFORMATION SOURCE (unrecogn ized section and content) DATE CREATED AUTHOR 04/09/2018 [facility] DATE CREATED AUTHOR AUTHOR'S ORGANIZ ATION 08/10/2020 [facility] DATE CREATED AUTHOR AUTHOR'S ORGANIZ ATION 09/07/2020 [facility] DATE CREATED AUTHOR AUTHOR'S ORGANIZ ATION 10/20/2020 [facility] DATE CREATED AUTHOR AUTHOR'S ORGANIZ ATION 03/18/2021 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 denies hitting head or any LOC Shoulder Pain rt shoulder, fell ov er dust guzman onto her right side. Susan Griffiths PA-C - 10/14/2020 10:44 AM Amena Cantrell RN - 10/14/2020 10:32 AM EST ED Notes (unrecognized secti on and content) [facility] ED Note: NAME: Susan Bro 24 y.o. CSN: [id number] PCP: Physician No History: Chief Complaint: Dizziness [...] file Gets together: Not on file Attends lutheran service: Not on file Active member of [...] does have reproducible vertigo with position changes. Wzljhm-ps-wiso maneuvers are intact without dysmetria. There is negative Romberg sign. There was no ataxia on ambulation. Psychiatric: Mood and Affect: Mood normal. Behavior: Behavior normal. Thought Content: Thought content normal. Laboratory & Radiological Imaging (if done): Labs Reviewed URINALYSIS - Abnormal; Notable for the following components: Result Value Clarity, Urine Cloudy (*) Specific [place] 1.028 (*) pH, Urine 8.0 (*) Protein, [...] at the following links: For Healthcare Providers: https://www.fda.gov/media/156156/download For Patients: https://www.fda.gov/media/925592/download HCG URINE, QUALITATIVE - Normal CBC AND DIFFERENTIAL Narrative: The following orders were created for panel order CBC w/ Diff. Procedure Abnormality Status --------- ------ CBC Auto Differential[[id number]] Abnormal Final result Please view results for these tests on the individual orders. HCG URINE, QUALITATIVE URINALYSIS CT Head Or Brain Without Contrast Final Result 1. No acute intracranial hemorrhage, focal edema or mass effect. Workstation ID: [id number] EKG: Normal sinus rhythm with sinus arrhythmia RATE: 74 AXIS: Normal axis INTERVALS: NC interval of 178 ms, QRS duration of [...] Antivert. She is referred to follow-up with [facility] or [place] that she does not currently have [...] needed for dizziness . Susan Griffiths Physicians Industrial Hygiene Technician [facility] Emergency Department Susan Griffiths PA-C 10/14/20 1203 Special isolation precautions are in place with signage outside this patient's room. This care services manager performs hand hygiene and enters the patient [...] or prosecute any alcohol or drug abuse patient.[facility] Care Team (unrecognized sect ion and content) Personnel Name: THANG MILLAN CNP Address: [address] [place] [address] Personnel Name: THANG MILLAN CNP Address: [address] [place] [address]- [place] Personnel Name: THANG MILLAN CNP Address: [address] [place] [address]- [place] Personnel Name: THANG MILLAN CNP Address: [address] [place] [address]- [place] Personnel Name: THANG MILLAN CNP Address: [address] [place] [address]- [place] Personnel Name: THANG MILLAN CNP Address: [address] [place] [address]- [place] Personnel Name: THANG MILLAN CNP Address: [address] [place] [address]- [place] Personnel Name: THANG MILLAN CNP Address: [address] [place] [address]- [place] Personnel Name: THANG MILLAN CNP Address: Address: [address] [place] [address]- [place] Personnel Name: THANG MILLAN CNP Address: Address: [address] [place] [address]- [place] Personnel Name: THANG MILLAN CNP Address: Address: [address] [place] [address]- [place] Personnel Name: THANG MILLAN CNP Address: Address: [address] [place] [address]- [place] Personnel Name: THANG MILLAN CNP Address: Address: [address] [place] [address]- [place] Personnel Name: THANG MILLAN CNP Address: Address: [address] [place] [address]- [place] Personnel Name: THANG MILLAN CNP Address: Address: [address] [place] [address]- [place] Personnel Name: THANG MILLAN CNP Address: Address: [address] [place] [place] [address]- [place] Personnel Name: THANG MILLAN CNP Address: Address: [address] [place] [address]- [place] Personnel Name: THNAG MILLAN CNP Address: Address: [address] [place] [address]- [place] Personnel Name: THANG MILLAN CNP Address: Address: [address] [place] [address]- [place] Personnel Name: THANG MILLAN CNP Address: Address: [address] [place] [address]- [place] Personnel Name: THANG MILLAN CNP Address: Address: [address] [place] [address]- [place] Personnel Name: THANG MILLAN CNP Address: Address: [address] [place] [address]- [place] Personnel Name: THANG MILLAN CNP Address: Address: [address] [place] [address] Personnel Name: THANG MILLAN CNP Address: Address: [address] [place] [address]- Personnel Name: THANG MILLAN CNP Address: Address: [address] [place] [address]- Personnel Name: THANG MILLAN CNP Address: Address: [address] [place], [place] [address] Personnel Name: Luis Carlos Jung MD Address: Address: [facility] [address], [address] Personnel Name: Luis Carlos Jung MD Address: Address: [facility] [address], [place] [address] Personnel Name: Luis Carlos Jung MD Address: Address: [facility] [address], [address] Personnel Name: Luis Carlos Jung MD Address: Address: [facility] [address], [address] Personnel Name: Luis Carlos Jung MD Address: Address: [facility] [address], [address] Personnel Name: Rashaun PURVIS DO Address: Address: [address] , [facility] Herminia Lopez[address] Personnel Name: NONE, XXXX Address: Address: [facility] Personnel Name: LLC, GENERIC Personnel Name: LLC, GENERIC Personnel Name: LLC, [...] BE BASED ON THE PRIMARY CLINICAL RECORDS. [employer] [facility]. provides no warranty or guarantee of the accuracy or completeness of information in this document.
--- NOTE | 2023-11-06 10:50 | US_ITS ---
[address] [address] Patient Name: DEANDRA MOCTEZUMA MRN: [id number] date: 1995 Sex: F Assigned Patient Location: US Current Patient Location: US Accession/Order Number: [id number] Exam Date: 11/06/2023 10:51 Report Date: 11/06/2023 11:20 At the request of: JOSSE PURVIS Procedure: US OB growth EXAMINATION: US OB growth HISTORY: LGA COMPARISON: All TECHNIQUE: Transabdominal sonographic examination was performed for obstetrical and evaluation. FINDINGS: Number: 1 Heart Rate: 127.0 bpm H.B. /min Amniotic Fluid Volume: 12.6 cm, largest pocket 3.4 cm position: Cephalic presentation, longitudinal lie Placental Location: Posterior BIOMETRY: BPD: 8.3 cm 33 weeks 4 days , 57% HC: 30.3 cm 33 weeks 5 days, 27% AC: 29.2 cm 33 weeks 2 days, 54% FL: 5.9 cm 30 weeks 6 days , less than 3% EFW:2017.3 grams; 4 lbs. 7 oz., 26% FL/AC: 20.3 FL/BPD: 71.1 HC/AC: 1.0 GESTATIONAL AGE: Age by EDC: 33 weeks 1 days Age by current US: 32 weeks 6 days DARON by current US: 12/26/2023 DARON by EDC: 12/24/2023 US/US OB growth IMPRESSION: Femur length less than the 3rd percentile, otherwise normal interval growth *Reference: [facility] Practice Guideline for the performance of Obstetric Ultrasound Examinations, July 15, 2007. Electronically authenticated by: MERNA SILVA Date: 11/06/2023 11:20
--- NOTE | 2023-11-06 14:56 | US_ITS ---
[address] [address] Patient Name: DEANDRA MOCTEZUMA MRN: [id number] date: 1995 Sex: F Assigned Patient Location: [facility] Current Patient Location: [facility] Accession/Order Number: [id number] Exam Date: 11/06/2023 15:30 Report Date: 11/06/2023 16:14 At the request of: JOSSE PURVIS Procedure: US OB BPP w non-stress EXAMINATION: US OB BPP w non-stress HISTORY: Excessive growth COMPARISON: No relevant comparison available. TECHNIQUE: Ultrasound biophysical profile was performed in the radiology department. FINDINGS: BREATHING MOVEMENTS: 2.0 GROSS BODY MOVEMENTS: 2.0 TONE: 2.0 QUALITATIVE AMNIOTIC FLUID VOLUME: 2.0 PRESENTATION: CEPHALIC HEART RATE: 136.4 bpm H.B./min AMNIOTIC FLUID VOLUME: 16.9 cm cm GESTATIONAL AGE: 33 weeks 1 days CONCLUSION: Total biophysical profile score: 8.0 Electronically authenticated by: MERNA SILVA Date: 11/06/2023 16:14
[2023-11-06 15:17] VITALS: BP 99/66; PULSE 75
== END 2023-11-06 16:00 | disposition home or self-care (01) ==
LOC: US 07:25 → FBC 14:55
PROVIDERS: Visit Provider Obstetrics & Gynecology
DX: O36.63X1 Maternal care for excessive fetal growth, third trimester, fetus 1 (principal); O26.843 Uterine size-date discrepancy, third trimester; Z3A.33 33 weeks gestation of pregnancy
CPT/HCPCS: 76816; 76818

== ENCOUNTER 2023-11-09 07:00 | Outpatient (OUT) | payer OTHER, SELFPAY ==
--- OUTSIDE RECORDS SUMMARY | 2023-11-09 07:08 | XMS_ITS | CCD ---
Author Name Unknown Address [address] [place] [address] Organization [facility] Care Team Providers Care Bilingual Inside Sales Representative Name Role Phone MELISSANKECHI Unavailable Unavaila BAKARI Liriano Attending Unavailable THANG MILLAN Primary Care Unavailable No, Physician Primary Care Provider Unavailerum e NO, PHYSICIAN Primary Care Unavailable REGINE CHOW Admitting Unavailable REGINE CHOW Attending Unavailable Thang Millan Primary Care Provider Unavailable Primary Care Provider UnavailTHANG Mauro Primary Care Physician [phone] Luis Carlos Jung Primary Care Physician [phone] Rashaun PURVIS Primary Care Physician [phone] NONE, XXXX Primary Care Physician [employer], GENERIC Primary Care Physician Unavailab le DO Gopi Rodriguez Attending Unavailable Kristian Guillermo Attending Unavailable Luis Carlos Jung Admitting Unavailable Luis Carlos Jung Attending Unavailable ALLISON MYRICK Attending Unavail able ALLISON MYRICK Admitting Unavail able Roverto Vaz V. Attending UnavailDO Goip Epstein Attending Unavailable Kristian Guillermo Attending Unavailable Kristian Guillermo Attending Unavailable Jj MIKE Attending Unavailable Jj MIKE Admitting Unavailable Luis Carlos Jung Attending Unavailable DO Jluia Haywood Attending Unavaila Luis Carlos Cortez Admitting [...] Carlos Byrd Consulting Unavailable Fabiana, Luis Carlos Bydr Consulting Unavailable Spasic, Roverto Barron Attending Unavailabl e Spasic, Roverto Barron Admitting Unavailabl e Fabiana, Luis Carlos Byrd Admitting Unavailable Fabiana, Luis Carlos Byrd Attending Unavailable Fabiana, Luis Carlos Byrd Admitting Unavailable Fabiana, Luis Carlos Byrd Attending Unavailable Fabiana, Luis Carlos Byrd Admitting Unavailable Fabiana, LuisC arlos Byrd Attending Unavailable Fabiana, Luis Carlos Byrd [...] Byrd Attending Unavailable Laura Noel Attending Unavailable DODIE MILLER Attending Unavailable YANIV, RASHAUN Attending Unavailable YANIV, RASHAUN Attending Unavailable YANIV, RASHAUN Attending Unavailable ANGELA, DODIE Attending Unavailable Allergies Allergy Classification Reported Allergen(s) Allergy Type Date of Onset Reaction(s) Facility (20 sources) amoxicillin; Translations: [AMOXICILLIN] Drug Allergy 7 [facility] Repository (20 sources) penicillin; Translations: [PENICILLIN] Drug Allergy 7 [facility] Repository (3 sources) Penicillins; Translations: [PENICILLINS] Propensity to adverse reactions to drug 0 [place], [place] Medications Current Medications Medication Drug Class(es) [...] day(s), # 15 cap(s), Refills(s) 0, Pharmacy: [facility], 162.6, cm, 05/21/23 20:50:00 EDT, Height/Length Dosing, 75.3, kg, 05/21/23 20:50:00 EDT, Weight Dosing Start Date: 05/21/23 Stop Date: 05/26/23 Status: Ordered Start: 08-18-2022 End: 08-25-2022 take 1 capsule by mouth four times daily Keflex 500 mg Cap 500 mg = 1 cap(s), Oral, QID, X 7 day(s), # 28 cap(s), Refills(s) 0, Pharmacy: [facility] 1985, 162.5, cm, 08/18/22 4:15:00 EDT, Height/Length Dosing, 80, kg, 08/18/22 4:15:00 EDT, Weight Dosing Start Date: 08/18/22 Stop Date: 08/25/22 Status: Ordered Start: 07-17-2022 End: 07-22-2022 take 1 capsule by mouth every twelve hours Keflex 500 mg Cap 500 mg = 1 cap(s), Oral, q12hr, X 5 day(s), # 10 cap(s), Refills(s) 0, Pharmacy: [facility] 1986, 162.5, cm, 07/17/22 9:09:00 EDT, Height/Length Dosing, 80, kg, 07/17/22 9:09:00 EDT, Weight Dosing Start Date: 07/17/22 Stop Date: 07/22/22 Status: Ordered Start: 04-02-2022 End: 04-09-2022 take 1 capsule by mouth four times daily Keflex 500 mg Cap 500 mg = 1 cap(s), Oral, QID, X 7 day(s), # 28 cap(s), Refills(s) 0, Pharmacy: [facility], 160, cm, 04/02/22 6:28:00 EDT, [...] Daily, # 14 tab(s), Refills(s) 0, Pharmacy: [facility] 1986, 162.6, cm, 05/21/23 20:50:00 EDT, Height/Length Dosing, 75.3, kg, 05/21/23 20:50:00 EDT, Weight Dosing Start Date: 05/21/23 Status: Ordered ibuprofen 600 mg oral tablet (11 sources) Nonsteroidal Anti-inflammatory Drug Start: 09-27-2022 take 1 tablet by mouth every six hours ibuprofen 600 mg Tab 600 mg = 1 tab(s), Oral, q6hr, # 15 tab(s), Refills(s) 0, Pharmacy: [facility] 1986, 162.5, cm, 09/24/22 21:51:00 EST, Height/Length Dosing, [...] Start: 03-03-2022 take 1 tablet by kenn once daily levothyroxine 50 mcg (0.05 mg) [...] dizziness, # 15 tab(s), Refills(s) 0, Pharmacy: [facility], 163, cm, 11/30/21 7:18:00 EST, Height/Length [...] tablet (6 sources) Serotonin-3 Receptor Antagonist Start: 022 take 1 tablet by mouth every eight hours as needed for nausea Zofran 4 mg Tab 4 mg = 1 tab(s), Oral, q8hr, PRN Nausea/Vomiting, # 12 tab(s), Refills(s) 0, Pharmacy: [facility], 163, cm, 09/05/22 20:14:00 EST, [...] day(s), # 6 tab(s), Refills(s) 0, Pharmacy: [facility], 163, cm, 06/28/23 10:39:00 EDT, [...] q8hr, # 12 tab(s), Refills(s) 0, Pharmacy: [facility], 162.6, cm, 05/21/23 20:50:00 EDT, [...] AM) Normal Negative [facility] UA Auto SS Randlett.plasma/Randlett .RBC (Bld) [Mass ratio] 0-3 /HPF Normal [...] Desc Clean Catch (11/04/23 8:05 AM) Normal FT UA Auto SS Urobilinogen Qn (U) 0.2236775 {Rola'U}/dL Normal 0.0 - 1.0 EU/dL FT UA Auto SS WBC Auto Ql (U) 1+ *ABN* (11/04/23 8:05 AM) Invalid Interpretation Code Negative FT UA Auto SS WBC LM.HPF (Urine sed) [#/Area] 6-15 /HPF Invalid Interpretation Code 0-5/HPF FT UA Auto SS T3 Totalon 08-24-2023 T3 [Mass/Vol] 146 ng/dL Invalid Interpretation Code 71-180 [facility] Comment on above: Result Comment: Perf ormed at: [facility] [address] [place], [place] [id number] PhD Caroline East Performed By: #### 2 160949, 63092274, 7950726, 84804062, 5791115, 9172696, 67313584 ####[facility] [address] [place] [address] Auto Diffon 08-23-2023 Basophils/100 WBC (Bld) 0.9 % Normal 0.0-2.0 [facility] Comment on above: Order Comment: Order Added by Discern Expert. Performed By: #### 2 471324, 24445373, 6594353, 91109505, 7525243, 3364869, 13542982 ####[facility] [address] [place] [address] Basophils/Leukocytes Auto (Bld) [Pure # fraction] 0.1 E9/L Normal 0.0-0.2 [facility] Comment on above: Order Comment: Order Added by Discern Expert. Performed By: #### 2 631164, 41018432, 5549717, 22152885, 6485977, 2133064, 02267467 ####[facility] [address] [place] [address] Eosinophils/100 WBC (Bld) 1.3 % Normal 0.0-8.0 [facility] Comment on above: Order Comment: Order Added by Discern Expert. Performed By: #### 2 037440, 13941575, 7269390, 12467025, 4160608, 3429002, 13865419 ####[address] [address] Eosinophils/Leukocytes Auto (Bld) [Pure # fraction] 0.1 E9/L Normal 0.0-0.5 [facility] Comment on above: Order Comment: Order Added by Discern Expert. Performed By: #### 2 053498, 57746110, 3315895, 56882351, 0679142, 5967412, 84133956 ####[address] [address] Lymphocytes/100 WBC (Bld) 17.7 % Normal 14.0-50.0 [facility] Comment on above: Order Comment: Order Added by Discern Expert. Performed By: #### 2 456227, 92592262, 2957757, 05289342, 3933785, 0805106, 54286357 ####[address] [place] [address] Lymphocytes/Leukocytes Auto (Bld) [Pure # fraction] 1.4 E9/L Normal 1.0-4.0 [facility] Comment on above: Order Comment: Order Added by Discern Expert. Performed By: #### 2 924093, 00513310, 5988591, 45621743, 1725090, 2982498, 42522285 ####[address] [place] [address] Monocytes/100 WBC (Bld) 5.1 % Normal 4.0-14.0 [facility] Comment on above: Order Comment: Order Added by Discern Expert. Performed By: #### 2 513074, 24093251, 5063942, 78602465, 6850651, 6462083, 39351543 ####[address] [address] Monocytes/Leukocytes Auto (Bld) [Pure # fraction] 0.4 E9/L Normal 0.2-1.0 [facility] Comment on above: Order Comment: Order Added by Discern Expert. Performed By: #### 2 148419, 70591123, 8587417, 27333714, 2081790, 9706471, 15089066 ####[address] [address] Neutrophils/100 WBC (Bld) 75.0 % Normal 36.0-75.0 [facility] Comment on above: Order Comment: Order Added by Discern Expert. Performed By: #### 2 681006, 98325684, 8991124, 54287782, 8866264, 8624482, 74759172 ####[address] [address] Neutrophils/Leukocytes Auto (Bld) [Pure # fraction] 5.8 E9/L Normal 2.0-7.5 [facility] Comment on above: Order Comment: Order Added by Discern Expert. Performed By: #### 2 488922, 24605806, 5933206, 17264132, 0404240, 6661418, 20341922 ####[address] [place] [address] CBC w/ Auto Diffon 3 Erythrocyte distribution width (RBC) [Ratio] 14.5 % High 10.9-14.2 [facility] Comment on above: Performed By: #### 2 901523, 47139947, 4469316, 67744736, 1195094, 3250138, 97178440 ####[facility] [address] [place] [address] Hematocrit (Bld) [Volume fraction] 36.4 % Normal 34.0-46.0 [facility] Comment on above: Performed By: #### 2 502405, 84231145, 0729025, 44863639, 5923414, 1838902, 03045857 ####[facility] [address] [place] [address] Hemoglobin (Bld) [Mass/Vol] 12.1 g/dL Normal 12.0-16.0 [facility] Comment on above: Performed By: #### 2 343378, 68114611, 2763980, 22743384, 3132786, 3319094, 88262511 ####[address] [place] [address] MCH (RBC) [Entitic mass] 30.2 pg Normal 27.0-34.0 [facility] Comment on above: Performed By: #### 2 299403, 31387254, 9464335, 20740078, 8493439, 4836434, 04592965 ####[facility] [address] [place], [place] [address] MCHC (RBC) [Mass/Vol] 33.3 g/dL Normal 31.4-36.0 [facility] Comment on above: Performed By: #### 2 588531, 00644860, 9739231, 81819224, 2898357, 8955845, 74877130 ####[facility] [address] [place] [address] MCV (RBC) [Entitic vol] 90.8 fL Normal 80.0-100.0 [facility] Comment on above: Performed By: #### 2 062225, 63563383, 9026805, 09080791, 7892127, 7964443, 80256167 ####[facility] [address] [place] [address] Platelet mean volume (Bld) [Entitic vol] 9.7 fL Normal 6.4-10.8 [facility] Comment on above: Performed By: #### 2 449991, 26831570, 7935054, 80168857, 5604159, 7717485, 63943932 ####[facility] [address] [place] [address] Platelets (Bld) [#/Vol] 270.0 E9/L Normal 150.0-500.0 [facility] Comment on above: Performed By: #### 2 689526, 09614613, 7114226, 32272204, 7962908, 9314856, 79546749 ####[facility] [address] [place] [address] RBC (Bld) [#/Vol] 4.0 E12/L Low 4.3-5.9 [facility] Comment on above: Performed By: #### 2 653766, 94550781, 6239236, 87303983, 7484096, 1536152, 67541501 ####[facility] [address] [place] [address] WBC corrected for nucl RBC Auto (Bld) [#/Vol] 7.7 E9/L Normal 4.0-11.0 [facility] Comment on above: Performed By: #### 2 243222, 93925607, 3118598, 33665314, 4119520, 0430408, 69415852 ####[facility] [address] [place] [address] CHEMISTRYOrdered By: SYSTEM SYSTEM on 08-23-2023 Albumin [...] 125 mL/min/1.73 m2 Normal >=59mL/min/ 1.73 m2 [facility] Comment on above: Interpretive Data: [...] 08-23-2023 Albumin [Mass/Vol] 2.8 g/dL Low 3.3-5.0 [facility] Comment on above: Performed By: #### 2 910382, 43610200, 4662157, 68443679, 9443521, 7825083, 96325710 ####[facility] [address] [place] [address] Albumin/Globulin (S) [Mass conc ratio] 0.7 Low 1.1-2.2 [facility] Comment on above: Performed By: #### 2 212148, 25009021, 4944611, 77747047, 1218723, 7431481, 74789275 ####[facility] [address] [place] [address] ALP [Catalytic activity/Vol] 49 Int._Unit/L Normal 21-98 [facility] Comment on above: Performed By: #### 2 178745, 17403046, 8025741, 20650110, 8095017, 9888680, 84275751 ####[facility] [address] [place] [address] ALT No additional P-5'-P [Catalytic activity/Vol] 15 Int._Unit/L Normal 6-46 [facility] Comment on above: Performed By: #### 2 932171, 36377579, 3251997, 76347218, 9945849, 6423157, 99704454 ####[facility] [address] [place] [address] Anion gap [Moles/Vol] 12 mmol/L Normal 6-16 [facility] Comment on above: Performed By: #### 2 396224, 17906680, 0400783, 35005003, 9144197, 4003432, 69569949 ####[facility] [address] [place] [address] AST [Catalytic activity/Vol] 17 Int._Unit/L Normal 5-43 [facility] Comment on above: Performed By: #### 2 550141, 13411480, 4718595, 06466645, 6136705, 8297139, 92693719 ####[address] [place] [address] Bilirubin [Mass/Vol] 0.5 mg/dL Normal 0.0-1.1 [facility] Comment on above: Performed By: #### 2 585610, 17759758, 5000909, 97200169, 0635392, 1092630, 59079388 ####[address] [place] [address] Calcium [Mass/Vol] 8.8 mg/dL Low 8.9-11.1 [facility] Comment on above: Performed By: #### 2 462034, 28958550, 9154269, 56708665, 2826227, 9945312, 35574890 ####[facility] [address] [place] [address] Chloride [Moles/Vol] 108 mmol/L Normal 101-111 [facility] Comment on above: Performed By: #### 2 542403, 69315755, 0353449, 04735097, 0085487, 5296897, 17508154 ####[facility] [address] [place] [address] CO2 [Moles/Vol] 22 mmol/L Normal 21-31 [facility] Comment on above: Performed By: #### 2 727589, 88910076, 9734781, 27083973, 1984853, 8489737, 75696018 ####[facility] [address] [place] [address] Creatinine [Mass/Vol] 0.6 mg/dL Normal 0.5-1.3 [facility] Comment on above: Performed By: #### 2 748182, 94719345, 2718037, 39619372, 4735905, 1531949, 82092941 ####[facility] [address] [place] [address] Globulin (S) [Mass/Vol] 3.8 g/dL Normal 1.4-4.0 [facility] Comment on above: Performed By: #### 2 603618, 32511360, 8929690, 15887139, 3877493, 7464334, 66561839 ####[facility] [address] [place] [address] Glucose [Mass/Vol] 88 mg/dL Normal 55-199 [facility] Comment on above: Result Comment: If t his glucose result represents a fasting glucose, interpretation should refer to the following reference range: 55-99 mg/dL Performed By: #### 2 673586, 72461954, 4547266, 88233001, 6126787, 1192492, 87577817 ####[facility] [address] [place] [address] Potassium [Moles/Vol] 3.5 mmol/L Normal 3.5-5.3 [facility] Comment on above: Performed By: #### 2 818791, 20667913, 9040194, 79604929, 2664130, 2513736, 38318056 ####[facility] [address] [place] [address] Protein [Mass/Vol] 6.6 g/dL Normal 6.0-7.8 [facility] Comment on above: Performed By: #### 2 928378, 07351569, 9710293, 14116473, 0858467, 5826833, 76477041 ####[facility] [address] [place] [address] Sodium [Moles/Vol] 138 mmol/L Normal 135-145 [facility] Comment on above: Performed By: #### 2 827335, 70899051, 0576019, 52050115, 6901370, 9182662, 77884721 ####[facility] [address] [place] [address] Urea nitrogen [Mass/Vol] 7 mg/dL Normal 5-21 [facility] Comment on above: Performed By: #### 2 274637, 09152712, 8430281, 11929576, 9893897, 6646356, 14292279 ####[facility] [address] [place] [address] Urea nitrogen/Creatinine [Mass ratio] 12 No Units Normal 10-20 [facility] Comment on above: Performed By: #### 2 139401, 83115794, 2206228, 95945579, 7515484, 1336605, 16511854 ####[facility] [address] [place] [address] HEMATOLOGYOrdered By: SYSTEM SYSTEM on 08-23-2023 Basophils/100 [...] 7.7 E9/L Normal 4.0 - 11.0 E9/L [facility] HemeAutoSS Lipid Panelon 08-23-2023 Cholesterol [Mass/Vol] 238 mg/dL High 120-200 [facility] Comment on above: Performed By: #### 2 333503, 14404813, 0604172, 02918659, 6238403, 0954810, 50867887 ####[facility] [address] [place] [address] Cholesterol in HDL [Mass/Vol] 64 mg/dL Invalid Interpretation Code [facility] Comment on above: Result Comment: HDL > or equal to 60 mg/dL: Low cardiovascular riskHDL < 40 mg/dL : High cardiovascular risk Performed By: #### 2 631050, 13053610, 2867729, 36159991, 4095710, 5078911, 28636196 ####[facility] [address] [place] [address] Cholesterol in LDL [Mass/Vol] 146 mg/dL High <=129 [facility] Comment on above: Performed By: #### 2 485929, 74287100, 2790450, 70357436, 4899733, 4496153, 64514967 ####[facility] [address] [place] [address] Cholesterol in VLDL [Mass/Vol] 33 mg/dL Normal 7-40 [facility] Comment on above: Performed By: #### 2 136553, 05937551, 0781524, 43485711, 1683605, 5105328, 55935879 ####[facility] [address] [place] [address] Triglyceride [Mass/Vol] 164 mg/dL High <=149 [facility] Comment on above: Performed By: #### 2 451874, 08419275, 4822974, 94052809, 2630485, 2597225, 12786330 ####[facility] [address] [place] [address] Physician Orderon 08-23-2023 Physician Order [id number]#1.00TIFF Normal [facility] T4 & TSHon 08-23-2023 T4 [Mass/Vol] 11.8 microgram/dL High 4.6-9.1 [facility] Comment on above: Performed By: #### 2 053582, 58530366, 6913031, 76239808, 4317911, 3333104, 19816297 ####[facility] [address] [place] [address] TSH Qn 3.61 m[IU]/L Normal 0.34-5.60 [facility] Comment on above: Performed By: #### 2 593384, 02673929, 0920692, 09956223, 8444800, 3662252, 06538762 ####[facility] [address] [place] [address] eGFRon 08-23-2023 GFR/1.73 sq M.predicted among non-blacks MDRD (S/P/Bld) [Vol rate/Area] 125 mL/min/1.73 m2 Normal >=59 [facility] Comment on above: Order Comment: Order added by Discern Expert. Result Comment: Open End Spinning Operator lucy kidney disease could be indicated at eGFR's of less than 60 mL/min/1.73m2. Kidney failure is indicated at less than 15 mL/min/1.73m2. Performed By: #### 2 688872, 00151487, 2525242, 67566305, 1961238, 2408079, 52897502 ####[facility] [address] [place] [address] Nursing Assessmenton 023 Nursing Assessment [id number]#1.00TIFF Normal [facility] Consent for Treatmenton Consent for Treatment [id number]#1.00TIFF Normal [facility] Discharge Instructionson Discharge Instructions [id number]#1.00TIFF Normal [facility] Inpatient Clinical Summaryon 08-18-2023 Inpatient Clinical Summary Normal [facility] Inpatient Patient Summaryon 08-18-2023 Inpatient Patient Summary Normal [facility] Insurance Correspondenceon 1 10-18-2022 Insurance Correspondence [id number]#1.00TIFF Normal [facility] Vaccinationson 08-18-2023 Vaccinations [id number]#1.00TIFF Normal [facility] C Urineon 07-27-2023 Bacteria identified Cx Nom (U) Normal [facility] Comment on above: Performed By: #### 2 425769, 93896087 ####[facility] [address] [place] [address] ABO/Rhon 07-25-2023 ABO/Rh Positive Invalid Interpretation Code [facility] Comment on above: Performed By: #### 2 044090 ####[facility] [address] [place] [address] Auto Diffon 07-25-2023 Basophils/100 WBC (Bld) 1.1 % Normal 0.0-2.0 [facility] Comment on above: Order Comment: Order Added by Discern Expert. Performed By: #### 1 0962678, 4004651, 8727091, 9727915, 3596885, 3024446 ####[facility] [address] [place] [address] Basophils/Leukocytes Auto (Bld) [Pure # fraction] 0.1 E9/L Normal 0.0-0.2 [facility] Comment on above: Order Comment: Order Added by Discern Expert. Performed By: #### 1 2762939, 8844430, 8950046, 7835854, 0846256, 0666246 ####[facility] [address] [place] [address] Eosinophils/100 WBC (Bld) 1.2 % Normal 0.0-8.0 [facility] Comment on above: Order Comment: Order Added by Discern Expert. Performed By: #### 1 9937299, 3378091, 4867272, 5923731, 9890333, 0702454 ####[facility] [address] [place] [address] Eosinophils/Leukocytes Auto (Bld) [Pure # fraction] 0.1 E9/L Normal 0.0-0.5 [facility] Comment on above: Order Comment: Order Added by Gisselle Expert. Performed By: #### 1 6594100, 0247386, 5303685, 0086950, 8565023, 9166981 ####[facility] [address] [place] [address] Lymphocytes/100 WBC (Bld) 23.7 % Normal 14.0-50.0 [facility] Comment on above: Order Comment: Order Added by Discern Expert. Performed By: #### 1 4069807, 7279501, 1783289, 7647315, 0954144, 9502198 ####[address] [place] [address] Lymphocytes/Leukocytes Auto (Bld) [Pure # fraction] 1.4 E9/L Normal 1.0-4.0 [facility] Comment on above: Order Comment: Order Added by Gisselle Expert. Performed By: #### 1 5809953, 7038631, 8970215, 4423970, 3871262, 5386080 ####[address] [place] [address] Monocytes/100 WBC (Bld) 6.7 % Normal 4.0-14.0 [facility] Comment on above: Order Comment: Order Added by Gisselle Expert. Performed By: #### 1 6883522, 2049717, 0355172, 9677575, 0667383, 0541224 ####[address] [address] Monocytes/Leukocytes Auto (Bld) [Pure # fraction] 0.4 E9/L Normal 0.2-1.0 [facility] Comment on above: Order Comment: Order Added by Gisselle Expert. Performed By: #### 1 0906390, 3122908, 2148286, 8658968, 4159230, 2707416 ####[address] [place] [address] Neutrophils/100 WBC (Bld) 67.3 % Normal 36.0-75.0 [facility] Comment on above: Order Comment: Order Added by Discern Expert. Performed By: #### 1 5864955, 0266327, 7860594, 3290350, 8266702, 4963995 ####[facility] [address] [place] [address] Neutrophils/Leukocytes Auto (Bld) [Pure # fraction] 4.0 E9/L Normal 2.0-7.5 [facility] [facility] Comment on above: Order Comment: Order Added by Discern Expert. Performed By: #### 1 2111131, 1176292, 1434147, 1592266, 4943287, 9027878 ####[facility] [address] [place] [address] BLOOD BANKOrdered By: An Lassiter on 07-25-2023 ABO/Rh Interp Positive Invalid Interpretation Code [facility] BB Subsection BMPon 07-25-2023 Creatinine [Mass/Vol] 0.6 mg/dL Normal 0.5-1.3 [facility] Comment on above: Performed By: #### 1 7129810, 4316799, 0564696, 4118590, 6068620, 5896633 ####[facility] [address] [place] [address] Urea nitrogen [Mass/Vol] 6 mg/dL Normal 5-21 [facility] Comment on above: Performed By: #### 1 6800475, 9720992, 4135410, 7863544, 0275623, 9810854 ####[facility] [address] [place] [address] Urea nitrogen/Creatinine [Mass ratio] 10 No Units Normal 10-20 [facility] Comment on above: Performed By: #### 1 8231009, 1515222, 5440156, 4519923, 1621775, 6195559 ####[facility] [address] [place] [address] Anion gap [Moles/Vol] 2 mmol/L Low 6-16 [facility] Comment on above: Performed By: #### 1 9244432, 7857542, 1316841, 9158918, 5264803, 5180193 ####[facility] [address] [place] [address] Calcium [Mass/Vol] 8.6 mg/dL Low 8.9-11.1 [facility] Comment on above: Performed By: #### 1 9275251, 6498808, 1571508, 2426415, 9926927, 4865201 ####[facility] [address] [place] [address] Chloride [Moles/Vol] 107 mmol/L Normal 101-111 [facility] Comment on above: Performed By: #### 1 3857775, 2918707, 6556245, 8004957, 4984283, 2542365 ####[facility] [address] [place] [address] CO2 [Moles/Vol] 27 mmol/L Normal 21-31 [facility] Comment on above: Performed By: #### 1 4691392, 9717025, 8356239, 4789906, 3217486, 9270332 ####[facility] [address] [place] [address] Glucose [Mass/Vol] 73 mg/dL Normal 55-199 [facility] Comment on above: Result Comment: If t his glucose result represents a fasting glucose, interpretation should refer to the following reference range: 55-99 mg/dL Performed By: #### 1 3274017, 1013768, 7531860, 7155384, 9741482, 4408574 ####[facility] [address] [place] [address] Potassium [Moles/Vol] 3.9 mmol/L Normal 3.5-5.3 [facility] Comment on above: Performed By: #### 1 5174582, 8498622, 2881372, 7099351, 6796714, 8122697 ####[facility] [address] [place] [address] Sodium [Moles/Vol] 132 mmol/L Low 135-145 [facility] Comment on above: Performed By: #### 1 6782848, 5561767, 1587406, 4503690, 1397014, 8256080 ####[facility] [address] [place] [address] BhCG Quanton 07-25-2023 [place] [address] m[IU]/mL High 1-3 [facility] Comment on above: Result Comment: GEST ATIONAL AGE HCG RANGE (mIU/mL) NON- <1-3 0.2-1 WEEKS 5-50 1-2 WEEKS 50-500 2-3 WEEKS 100-5,000 3-4 WEEKS 500-10,000 4-5 WEEKS 1,000-50,000 5-6 WEEKS 10,000-100,000 6-8 WEEKS 15,000-200,000 8-12 WEEKS 10,000-100,000 Performed By: #### 2 892288 ####[address] [address] CBC w/ Auto Diffon Erythrocyte distribution width (RBC) [Ratio] 14.0 % Normal 10.9-14.2 [facility] Comment on above: Performed By: #### 1 1274337, 9069231, 1072190, 6558258, 8694207, 1212296 ####[address] [place] [address] Hematocrit (Bld) [Volume fraction] 37.1 % Normal 34.0-46.0 [facility] Comment on above: Performed By: #### 1 1573515, 0338193, 7141106, 0173235, 4410212, 5622996 ####[address] [place] [address] Hemoglobin (Bld) [Mass/Vol] 12.5 g/dL Normal 12.0-16.0 [facility] Comment on above: Performed By: #### 1 0479994, 9209610, 6675161, 3676804, 8642765, 0243384 ####[facility] [address] [place] [address] MCH (RBC) [Entitic mass] 29.9 pg Normal 27.0-34.0 [facility] Comment on above: Performed By: #### 1 6302848, 1091643, 5762404, 7640962, 6990264, 4907543 ####[address] [place] [address] MCHC (RBC) [Mass/Vol] 33.8 g/dL Normal 31.4-36.0 [facility] Comment on above: Performed By: #### 1 9854285, 3885181, 2860273, 4835574, 0019498, 1737722 ####[address] [address] MCV (RBC) [Entitic vol] 88.4 fL Normal 80.0-100.0 [facility] Comment on above: Performed By: #### 1 5648860, 2608978, 4432353, 0837644, 4849689, 2597967 ####[address] [address] Platelet mean volume (Bld) [Entitic vol] 7.9 fL Normal 6.4-10.8 [facility] Comment on above: Performed By: #### 1 4297129, 7490023, 5841482, 8831800, 1657736, 7653883 ####[address] [address] Platelets (Bld) [#/Vol] 261.0 E9/L Normal 150.0-500.0 [facility] Comment on above: Performed By: #### 1 0836080, 1584878, 8272765, 1730236, 7607631, 8329969 ####[address] [address] RBC (Bld) [#/Vol] 4.2 E12/L Low 4.3-5.9 [facility] Comment on above: Performed By: #### 1 7914037, 2920745, 5052199, 9836073, 0053473, 4181872 ####[address] [address] WBC corrected for nucl RBC Auto (Bld) [#/Vol] 5.9 E9/L Normal 4.0-11.0 [facility] Comment on above: Performed By: #### 1 3372506, 8996693, 9854769, 8976759, 9362015, 1885353 ####[facility] [address] [place] [address] CHEMISTRYOrdered By: SYSTEM SYSTEM on 07-25-2023 Albumin [...] 125 mL/min/1.73 m2 Normal >=59mL/min/ 1.73 m2 [facility] Chem S Comment on above: Interpretive Data: C hronic kidney disease could be indicated at eGFR's of less than 60 mL/min/1.73m2. Kidney failure is indicated at less than 15 mL/min/1.73m2. Globulin (S) [Mass/Vol] 3.6 g/dL Normal 1.4 - 4.0 gm/dL FT [facility] Glucose [Mass/Vol] 73 mg/dL Normal 55 - 199 mg/dL [facility] Comment on above: Interpretive Data: I f this glucose result represents a fasting glucose, interpretation should refer to the following reference range: 55-99 mg/[place] [address] m[IU]/mL High 1 - 3 mIU/mL FT [...] 132 mmol/L Low 135 - 145 mmol/L [facility] Remisol Urea nitrogen [Mass/Vol] 6 mg/dL Normal 5 - 21 mg/dL [facility] Remisol Urea nitrogen/Creatinine [Mass ratio] 10 mg/mg Normal 10 - 20 [facility]isol Consent for Treatmenton 07-15 Consent for Treatment [id number]#1.00TIFF [facility] Discharge Instructionson Discharge Instructions [id number]#1.00TIFF Normal [facility] ED Clinical Summaryon 2022 ED Clinical Summary Normal Vika onofre [facility] ED Note-Physicianon 07-25-20 ED Note-Physician Normal [facility] Comment on above: Result Comment: Elec tronically Signed By: Jorge Velarde PA-C\.br\Date and Time Signed: 07/25/23 10:02 EDT\.br\Electronically Co-Signed By: Kristian Guillermo DO\.br\Date and Time Co-Signed: 07/25/23 20:25 EDT ED Patient Education Noteon 07-25-2023 ED Patient Education Note Normal [facility] ED Patient Summaryon ED Patient Summary Normal [facility] HEMATOLOGYOrdered By: SYSTEM SYSTEM on 07-25-2023 Basophils/100 [...] 14.0 % Normal 10.9 - 14.2 % FT HemeAutoSS Hematocrit (Bld) [Volume fraction] 37.1 % Normal 34.0 - 46.0 % FT HemeAutoSS Hemoglobin (Bld) [Mass/Vol] 12.5 g/dL Normal [...] Bilirubin.indirect [Mass or moles/Vol] UTC Abnormal 0.1-0.9 [facility] Comment on above: Result Comment: Resu lt verified by Discern Rule. Performed result UTC (Unable to Calculate) was sent as an Alpha code due the inability to calculate a valid numeric value. Performed By: #### 1 4231972, 0809720, 8047155, 7433898, 1207690, 4241208 ####[facility] [address] [place] [address] Albumin [Mass/Vol] 3.1 g/dL Low 3.3-5.0 [facility] Comment on above: Performed By: #### 1 5026077, 0367656, 9437695, 8544215, 0943614, 5242231 ####[facility] [address] [place] [address] Albumin/Globulin (S) [Mass conc ratio] 0.9 Low 1.1-2.2 [facility] Comment on above: Performed By: #### 1 0987253, 3251772, 5687754, 6833997, 6496188, 2064900 ####[address] [place] [address] ALP [Catalytic activity/Vol] 35 Int._Unit/L Normal 21-98 [facility] Comment on above: Performed By: #### 1 9439789, 2333369, 0182263, 3137788, 8917388, 5888275 ####[address] [place] [address] ALT No additional P-5'-P [Catalytic activity/Vol] 10 Int._Unit/L Normal 6-46 [facility] Comment on above: Performed By: #### 1 6849745, 4560369, 8916848, 9839620, 3405334, 0781291 ####[address] [address] AST [Catalytic activity/Vol] 18 Int._Unit/L Normal 5-43 [facility] Comment on above: Performed By: #### 1 4161999, 9629762, 7596066, 3477513, 5588795, 1042661 ####[address] [place] [address] Bilirubin [Mass/Vol] 0.4 mg/dL Normal 0.0-1.1 [facility] Comment on above: Performed By: #### 1 0610678, 0104432, 7641073, 8393267, 6052869, 8826450 ####[address] [place] [address] Globulin (S) [Mass/Vol] 3.6 g/dL Normal 1.4-4.0 [facility] Comment on above: Performed By: #### 1 2240379, 6966640, 0061151, 3956492, 8337060, 8161245 ####[facility] [address] [place] [address] Protein [Mass/Vol] 6.7 g/dL Normal 6.0-7.8 [facility] Comment on above: Performed By: #### 1 5845829, 9917705, 3337300, 6128475, 3936867, 1753707 ####[facility] [address] [place] [address] Bilirubin.direct [Mass/Vol] mg/dL Normal 0.1-0.4 [facility] Comment on above: Performed By: #### 1 8798465, 5032335, 6054708, 0235990, 2420889, 6575791 ####[facility] [address] [place] [address] Lipase Levelon 07-25-2023 Lipase [Catalytic activity/Vol] 28 U/L Normal 13-58 [facility] Comment on above: Performed By: #### 1 9700453, 6601415, 6910000, 0219754, 0627496, 2769877 ####[facility] [address] [place] [address] UA With Cult Reflexon 2022 Bacteria LM Ql (Urine sed) TRACE Normal Trace [facility] Comment on above: Performed By: #### 2 164553, 30973769 ####[facility] [address] [place] [address] Bilirubin Ql (U) Negative Normal Negative [facility] Comment on above: Performed By: #### 2 596969, 73347818 ####[facility] [address] [place] [address] Clarity (U) SL CLOUDY Abnormal Clear [facility] Comment on above: Performed By: #### 2 711475, 29689188 ####[facility] [address] [place] [address] Color (U) YELLOW Normal Yellow [facility] Comment on above: Performed By: #### 2 281492, 47031150 ####[facility] [address] [address] Epithelial cells.squamous LM.HPF (Urine sed) [#/Area] 0-2 Normal 0-2 [facility] Comment on above: Performed By: #### 2 733573, 21903573 ####[facility] [address] [place] [address] Glucose Test strip (U) [Mass/Vol] Negative Normal Negative [facility] Comment on above: Performed By: #### 2 838324, 51307554 ####[address] [address] Hemoglobin Ql (U) Negative Normal Negative [facility] Comment on above: Performed By: #### 2 469210, 81629049 ####[address] [address] Ketones (U) [Mass/Vol] Negative Normal Negative [facility] Comment on above: Performed By: #### 2 298262, 08295561 ####[address] [address] Randlett.plasma/Randlett .RBC (Bld) [Mass ratio] 0-3 Normal 0-3 [facility] Comment on above: Performed By: #### 2 888998, 83015883 ####[address] [address] Nitrite Ql (U) Negative Normal Negative [facility] Comment on above: Performed By: #### 2 798660, 04485781 ####[address] [address] pH (U) 7.5 [pH] Invalid Interpretation Code 5.0-9.0 [facility] Comment on above: Performed By: #### 2 569382, 46710703 ####[address] [place] [address] Protein (U) [Mass/Vol] Negative Normal Negative [facility] Comment on above: Performed By: #### 2 283941, 08890089 ####[facility] [address] [place] [address] Specific gravity (U) [Rel density] 1.010 Invalid Interpretation Code 1.005-1.030 [facility] Comment on above: Performed By: #### 2 838874, 65098346 ####[place] [address] Type of Urine collection method Clean Catch Normal [facility] Comment on above: Performed By: #### 2 807916, 12721393 ####[facility] [address] [place] [address] Urobilinogen Qn (U) 1.0 {Rola'U}/dL Normal 0.0-1.0 [facility] Comment on above: Performed By: #### 2 141645, 85310365 ####[place] [address] WBC Auto Ql (U) 2+ Abnormal Negative [facility] Comment on above: Performed By: #### 2 117382, 90925771 ####[facility] [address] [place] [address] WBC LM.HPF (Urine sed) [#/Area] 0-5 Normal 0-5 [facility] Comment on above: Performed By: #### 2 454237, 05341824 ####[place] [address] URINALYSISOrdered By: Emy Aiken on 07-25-2023 Bacteria [...] AM) Normal Negative [facility] UA Auto SS Randlett.plasma/Randlett .RBC (Bld) [Mass ratio] 0-3 /HPF Normal [...] [facility] UA Auto SS Urobilinogen Qn (U) 1.5986997 {Rola'U}/dL Normal 0.0 - 1.0 EU/dL [facility] UA Auto SS WBC Auto Ql (U) 2+ *ABN* (07/25/23 8:33 AM) Invalid Interpretation Code Negative [facility] UA Auto SS WBC LM.HPF (Urine sed) [#/Area] 0-5 /HPF Normal 0-5/HPF [facility] UA Auto SS US Limitedon 07-25 US Limited Normal [facility] eGFRon 07-25-2023 GFR/1.73 sq M.predicted among non-blacks MDRD (S/P/Bld) [Vol rate/Area] 125 mL/min/1.73 m2 Normal >=59 [facility] Comment on above: Order Comment: Order added by Discern Expert. Result Comment: Open End Spinning Operator lucy kidney disease could be indicated at eGFR's of less than 60 mL/min/1.73m2. Kidney failure is indicated at less than 15 mL/min/1.73m2. Performed By: #### 1 4572699, 0300468, 0611573, 1969603, 8691769, 3884328 ####[facility] [address] [place] [address] C Urineon 06-30-2023 Bacteria identified Cx Nom (U) Normal [facility] Comment on above: Performed By: #### 2 688173 ####[facility] [address] [place] [address] Family Medicine Office/Clini c Noteon 06-28-2023 Family Medicine Office/Clinic Note Normal [facility] Comment on above: Result Comment: Elec tronically Signed By: Татьяна NICHOLS, Roverto Barron\.br\Date and Time Signed: 06/28/23 11:41 EDT Patient Educationon 06-28-20 Patient Education Normal [facility] ABO/Rhon 06-14-2023 ABO/Rh Positive Invalid Interpretation Code [facility] Comment on above: Performed By: #### 2 863085 ####[facility] [address] [place] [address] Auto Diffon 06-14-2023 Basophils/100 WBC (Bld) 0.8 % Normal 0.0-2.0 [facility] Comment on above: Order Comment: Order Added by Discern Expert. Performed By: #### 2 576386, 5831434, 8521563, 9172445, 8591515, 32809181 ####[facility] [address] [place] [address] Basophils/Leukocytes Auto (Bld) [Pure # fraction] 0.0 E9/L Normal 0.0-0.2 [facility] Comment on above: Order Comment: Order Added by Discern Expert. Performed By: #### 2 872531, 4539370, 8238043, 5246507, 3188271, 55506201 ####[facility] [address] [place] [address] Eosinophils/100 WBC (Bld) 1.9 % Normal 0.0-8.0 [facility] Comment on above: Order Comment: Order Added by Discern Expert. Performed By: #### 2 951734, 8762677, 9189349, 0147057, 9869051, 92339615 ####[facility] [address] [place] [address] Eosinophils/Leukocytes Auto (Bld) [Pure # fraction] 0.1 E9/L Normal 0.0-0.5 [facility] Comment on above: Order Comment: Order Added by Discern Expert. Performed By: #### 2 672021, 5253049, 0417121, 9820179, 7280047, 40833294 ####[address] [place] [address] Lymphocytes/100 WBC (Bld) 24.5 % Normal 14.0-50.0 [facility] Comment on above: Order Comment: Order Added by Discern Expert. Performed By: #### 2 771951, 1013040, 8315165, 4898128, 7807066, 49251128 ####[address] [address] Lymphocytes/Leukocytes Auto (Bld) [Pure # fraction] 1.3 E9/L Normal 1.0-4.0 [facility] Comment on above: Order Comment: Order Added by Discern Expert. Performed By: #### 2 264749, 3953091, 8538966, 6920528, 4033144, 94057515 ####[address] [place] [address] Monocytes/100 WBC (Bld) 7.8 % Normal 4.0-14.0 [facility] Comment on above: Order Comment: Order Added by Discern Expert. Performed By: #### 2 103953, 6905294, 1463450, 6981627, 7296234, 36662667 ####[address] [place] [address] Monocytes/Leukocytes Auto (Bld) [Pure # fraction] 0.4 E9/L Normal 0.2-1.0 [facility] Comment on above: Order Comment: Order Added by Discern Expert. Performed By: #### 2 547906, 0906628, 6225906, 6487778, 4923935, 09873246 ####[facility] [address] [place] [address] Neutrophils/100 WBC (Bld) 65.0 % Normal 36.0-75.0 [facility] Comment on above: Order Comment: Order Added by Discern Expert. Performed By: #### 2 422977, 9482008, 8762280, 2224291, 0346502, 94051740 ####[facility] [address] [place] [address] Neutrophils/Leukocytes Auto (Bld) [Pure # fraction] 3.5 E9/L Normal 2.0-7.5 [facility] Comment on above: Order Comment: Order Added by Discern Expert. Performed By: #### 2 460651, 7315568, 4512222, 3071745, 4355299, 53024868 ####[facility] [address] [place] [address] BLOOD BANKOrdered By: Keila Kumar on 06-14-2023 ABO/Rh Interp Positive Invalid Interpretation Code [facility] BB Subsection BMPon 06-14-2023 Creatinine [Mass/Vol] 0.5 mg/dL Normal 0.5-1.3 [facility] Comment on above: Performed By: #### 2 346177, 3042132, 7881956, 8598983, 4681129, 54178747 ####[facility] [address] [place] [address] Urea nitrogen [Mass/Vol] 6 mg/dL Normal 5-21 [facility] Comment on above: Performed By: #### 2 012220, 2544168, 3015603, 4939501, 7605886, 60243832 ####[facility] [address] [place] [address] Urea nitrogen/Creatinine [Mass ratio] 12 No Units Normal 10-20 [facility] Comment on above: Performed By: #### 2 324383, 4712475, 7086035, 6991956, 7953056, 94535552 ####[facility] [address] [place] [address] Anion gap [Moles/Vol] 10 mmol/L Normal 6-16 [facility] Comment on above: Performed By: #### 2 979275, 4696176, 2608884, 6408564, 9420885, 48529045 ####[facility] [address] [place] [address] Calcium [Mass/Vol] 8.7 mg/dL Low 8.9-11.1 [facility] Comment on above: Performed By: #### 2 585733, 7752803, 9878592, 8002229, 0631743, 53064882 ####[facility] [address] [place] [address] Chloride [Moles/Vol] 107 mmol/L Normal 101-111 [facility] Comment on above: Performed By: #### 2 466035, 6235723, 9242063, 1507186, 3993259, 75250418 ####[facility] [address] [place] [address] CO2 [Moles/Vol] 21 mmol/L Normal 21-31 [facility] Comment on above: Performed By: #### 2 294317, 4099169, 7311210, 9746502, 6117848, 91704268 ####[facility] [address] [place] [address] Glucose [Mass/Vol] 77 mg/dL Normal 55-199 [facility] Comment on above: Result Comment: If t his glucose result represents a fasting glucose, interpretation should refer to the following reference range: 55-99 mg/dL Performed By: #### 2 773640, 2297198, 6341207, 8536239, 8667115, 90681849 ####[facility] [address] [place] [address] Potassium [Moles/Vol] 3.8 mmol/L Normal 3.5-5.3 [facility] Comment on above: Performed By: #### 2 937955, 3916080, 0445576, 0166147, 4249973, 12682795 ####[facility] [address] [place] [address] Sodium [Moles/Vol] 134 mmol/L Low 135-145 [facility] Comment on above: Performed By: #### 2 581895, 1058564, 9689203, 7210618, 6007213, 20076107 ####[facility] [address] [place] [address] BhCG Quanton 06-14-2023 HCG.beta subunit Qn 778571 m[IU]/mL High 1-3 [facility] Comment on above: Result Comment: GEST ATIONAL AGE HCG RANGE (mIU/mL) NON- <1-3 0.2-1 WEEKS 5-50 1-2 WEEKS 50-500 2-3 WEEKS 100-5,000 3-4 WEEKS 500-10,000 4-5 WEEKS 1,000-50,000 5-6 WEEKS 10,000-100,000 6-8 WEEKS 15,000-200,000 8-12 WEEKS 10,000-100,000 Performed By: #### 2 530147 ####[facility] [address] [place] [address] CBC w/ Auto Diffon Erythrocyte distribution width (RBC) [Ratio] 12.6 % Normal 10.9-14.2 [facility] Comment on above: Performed By: #### 2 052949, 0658387, 9797364, 7536727, 9909020, 92193470 ####[facility] [address] [place] [address] Hematocrit (Bld) [Volume fraction] 39.9 % Normal 34.0-46.0 [facility] Comment on above: Performed By: #### 2 764052, 3500781, 4938847, 5882620, 2376783, 84403443 ####[facility] [address] [place] [address] Hemoglobin (Bld) [Mass/Vol] 13.4 g/dL Normal 12.0-16.0 [facility] Comment on above: Performed By: #### 2 935609, 8487433, 3920215, 0344461, 2428359, 99438249 ####[facility] [address] [place] [address] MCH (RBC) [Entitic mass] 29.8 pg Normal 27.0-34.0 [facility] Comment on above: Performed By: #### 2 731694, 3152889, 5728993, 6886668, 5129001, 68939866 ####[place] [address] MCHC (RBC) [Mass/Vol] 33.6 g/dL Normal 31.4-36.0 [facility] Comment on above: Performed By: #### 2 393924, 9513138, 0996230, 7061233, 0171408, 52337457 ####[address] [address] MCV (RBC) [Entitic vol] 88.8 fL Normal 80.0-100.0 [facility] Comment on above: Performed By: #### 2 883773, 6952117, 0503657, 1586007, 6038977, 76104075 ####[address] [address] Platelet mean volume (Bld) [Entitic vol] 8.4 fL Normal 6.4-10.8 [facility] Comment on above: Performed By: #### 2 232158, 7531571, 6159568, 9239875, 3205801, 80345682 ####[address] [address] [address] Platelets (Bld) [#/Vol] 225.0 E9/L Normal 150.0-500.0 [facility] Comment on above: Performed By: #### 2 970486, 7124620, 4303628, 4865799, 4249362, 43879614 ####[address] [address] RBC (Bld) [#/Vol] 4.5 E12/L Normal 4.3-5.9 [facility] Comment on above: Performed By: #### 2 897641, 6422545, 3839408, 6434842, 7568484, 21361519 ####[facility] [address] [place] [address] WBC corrected for nucl RBC Auto (Bld) [#/Vol] 5.4 E9/L Normal 4.0-11.0 [facility] Comment on above: Performed By: #### 2 729110, 8890372, 9999003, 5265387, 6163222, 58926700 ####[facility] [address] [place] [address] CHEMISTRYOrdered By: SYSTEM SYSTEM on 06-14-2023 Albumin [...] 130 mL/min/1.73 m2 Normal >=59mL/min/ 1.73 m2 [facility] Chem S Globulin (S) [Mass/Vol] 3.3 g/dL Normal 1.4 - 4.0 gm/dL FT Remisol Glucose [Mass/Vol] 77 mg/dL Normal 55 - 199 mg/dL FT Remisol HCG.beta subunit Qn 129656 m[IU]/mL High 1 - 3 mIU/mL FT [...] Consent for Treatmenton 05-17 Consent for Treatment [id number]#[id number]:12 7 Normal [facility] ED Clinical Summaryon 2022 ED Clinical Summary Normal [facility] ED Note-Physicianon 06-14-20 ED Note-Physician Normal [facility] Comment on above: Result Comment: Elec tronically Signed By: Jos Ugalde PA-C\.br\Date and Time Signed: 06/14/23 11:58 EDT\.br\Electronically Co-Signed By: Kristian Guillermo DO.br\Date and Time Co-Signed: 06/14/23 17:02 EDT ED Patient Education Noteon 06-14-2023 ED Patient Education Note Normal [facility] ED Patient Summaryon 023 ED Patient Summary Normal [facility] HEMATOLOGYOrdered By: SYSTEM SYSTEM on 06-14-2023 Basophils/100 [...] 88.8 fL Normal 80.0 - 100.0 fL [facility] HemeAutoSS Platelet mean volume (Bld) [Entitic vol] 8.4 fL Normal 6.4 - 10.8 fL [facility] HemeAutoSS Platelets (Bld) [#/Vol] 225.0 E9/L Normal 150.0 - 500.0 E9/L [facility] HemeAutoSS RBC (Bld) [#/Vol] 4.5 E12/L Normal 4.3 - 5.9 E12/L [facility] HemeAutoSS WBC corrected for nucl RBC Auto (Bld) [#/Vol] 5.4 E9/L Normal 4.0 - 11.0 E9/L [facility] HemeAutoSS Hep Func Panelon 06-14-2023 Bilirubin.indirect [Mass or moles/Vol] UTC Abnormal 0.1-0.9 [facility] Comment on above: Result Comment: Resu lt verified by Discern Rule. Performed result UTC (Unable to Calculate) was sent as an Alpha code due the inability to calculate a valid numeric value. Performed By: #### 2 972876, 5550264, 7663430, 0435568, 6575787, 36279008 ####[facility] [address] [place] [address] Albumin [Mass/Vol] 3.5 g/dL Normal 3.3-5.0 [facility] Comment on above: Performed By: #### 2 586619, 4882760, 4542096, 1005855, 0867656, 60742789 ####[facility] [address] [place] [address] Albumin/Globulin (S) [Mass conc ratio] 1.1 Normal 1.1-2.2 [facility] Comment on above: Performed By: #### 2 161477, 7376382, 2704081, 1240033, 8533327, 57829436 ####[facility] [address] [place] [address] ALP [Catalytic activity/Vol] 34 Int._Unit/L Normal 21-98 [facility] Comment on above: Performed By: #### 2 139683, 7409673, 6069632, 4941048, 1564277, 75015157 ####[facility] [address] [place] [address] ALT No additional P-5'-P [Catalytic activity/Vol] 13 Int._Unit/L Normal 6-46 [facility] Comment on above: Performed By: #### 2 918127, 3381526, 6103835, 5756901, 4091319, 99717697 ####[address] [address] AST [Catalytic activity/Vol] 17 Int._Unit/L Normal 5-43 [facility] Comment on above: Performed By: #### 2 206580, 3028337, 4893469, 5759485, 4645584, 57123056 ####[address] [address] Bilirubin [Mass/Vol] 0.6 mg/dL Normal 0.0-1.1 [facility] Comment on above: Performed By: #### 2 169604, 4211616, 4682214, 9769646, 7947302, 95726402 ####[address] [address] Globulin (S) [Mass/Vol] 3.3 g/dL Normal 1.4-4.0 [facility] Comment on above: Performed By: #### 2 221034, 6973679, 7120373, 6530191, 8383424, 73444461 ####[address] [address] Protein [Mass/Vol] 6.8 g/dL Normal 6.0-7.8 [facility] Comment on above: Performed By: #### 2 929437, 2850726, 3637147, 1674765, 6197060, 64689494 ####[address] [place] [address] Bilirubin.direct [Mass/Vol] mg/dL Normal 0.1-0.4 [facility] Comment on above: Performed By: #### 2 164908, 4865291, 7625840, 3137532, 5975810, 09523589 ####[facility] [address] [place] [address] Lipase Levelon 06-14-2023 Lipase [Catalytic activity/Vol] 28 U/L Normal 13-58 [facility] Comment on above: Performed By: #### 2 925134, 3547282, 7631750, 0539854, 3716586, 90105707 ####[address] [address] Progress Note-Nurseon 2022 Progress Note-Nurse MAHESH Hinds verbalize d she was unable to locate patient at this time Normal [facility] UA With Cult Reflexon 2022 Bacteria LM Ql (Urine sed) TRACE Normal Trace [facility] Comment on above: Performed By: #### 1 5099618 ####[address] [address] Bilirubin Ql (U) Negative Normal Negative [facility] Comment on above: Performed By: #### 1 4166423 ####[address] [address] Clarity (U) CLEAR Normal Clear [facility] Comment on above: Performed By: #### 1 9281988 ####[address] [address] Color (U) YELLOW Normal Yellow [facility] Comment on above: Performed By: #### 1 3465931 ####[address] [address] Epithelial cells.squamous LM.HPF (Urine sed) [#/Area] 3-4 Normal 0-2 [facility] Comment on above: Performed By: #### 1 4824439 ####[address] [address] Glucose Test strip (U) [Mass/Vol] Negative Normal Negative [facility] Comment on above: Performed By: #### 1 5418027 ####[address] [place] [address] Hemoglobin Ql (U) Negative Normal Negative [facility] Comment on above: Performed By: #### 1 3521054 ####[address] [address] Ketones (U) [Mass/Vol] Negative Normal Negative [facility] Comment on above: Performed By: #### 1 4607085 ####[address] [address] Randlett.plasma/Randlett .RBC (Bld) [Mass ratio] 0-3 Normal 0-3 [facility] Comment on above: Performed By: #### 1 7406522 ####[address] [address] Mucus Ql (Urine sed) TRACE Normal [facility] Comment on above: Performed By: #### 1 4023043 ####[address] [address] Nitrite Ql (U) Negative Normal Negative [facility] Comment on above: Performed By: #### 1 4383629 ####[address] [address] pH (U) 6.5 [pH] Invalid Interpretation Code 5.0-9.0 [facility] Comment on above: Performed By: #### 1 1239131 ####[address] [address] Protein (U) [Mass/Vol] Negative Normal Negative [facility] Comment on above: Performed By: #### 1 7583777 ####[address] [address] Specific gravity (U) [Rel density] 1.015 Invalid Interpretation Code 1.005-1.030 [facility] Comment on above: Performed By: #### 1 2280403 ####[address] [address] Type of Urine collection method Clean Catch Normal [facility] Comment on above: Performed By: #### 1 0147591 ####[facility] [address] [place] [address] Urobilinogen Qn (U) 0.2 {Rola'U}/dL Normal 0.0-1.0 [facility] Comment on above: Performed By: #### 1 0702090 ####[facility] [address] [place] [address] WBC Auto Ql (U) TRACE Abnormal Negative [facility] Comment on above: Performed By: #### 1 6158366 ####[facility] [address] [place] [address] WBC LM.HPF (Urine sed) [#/Area] 0-5 Normal 0-5 [facility] Comment on above: Performed By: #### 1 6261268 ####[facility] [address] [place] [address] URINALYSISOrdered By: An Mccarty on 06-14-2023 Bacteria [...] AM) Normal Negative [facility] UA Auto SS Randlett.plasma/Randlett .RBC (Bld) [Mass ratio] 0-3 /HPF Normal [...] [facility] UA Auto SS Urobilinogen Qn (U) 0.2812667 {Rola'U}/dL Normal 0.0 - 1.0 EU/dL [facility] UA Auto SS WBC Auto Ql (U) Trace *ABN* (06/14/23 10:13 AM) Invalid Interpretation Code Negative [facility] UA Auto SS WBC LM.HPF (Urine sed) [#/Area] 0-5 /HPF Normal 0-5/HPF [facility] UA Auto SS US 1st Trimesteron 06-14-2023 US 1st Trimester Normal [facility] eGFRon 06-14-2023 GFR/1.73 sq M.predicted among non-blacks MDRD (S/P/Bld) [Vol rate/Area] 130 mL/min/1.73 m2 Normal >=59 [facility] Comment on above: Order Comment: Order added by Discern Expert. Result Comment: Open End Spinning Operator lucy kidney disease could be indicated at eGFR's of less than 60 mL/min/1.73m2. Kidney failure is indicated at less than 15 mL/min/1.73m2. Performed By: #### 2 892342, 8125085, 7474996, 5859349, 9552068, 15954729 ####[facility] [address] [place] [address] CHEMISTRYOrdered By: SYSTEM SYSTEM on 06-12-2023 TSH Qn 3.80 m[IU]/L Normal 0.34 - 5.60 mcIU/mL [facility] Remisol Consent for Treatmenton 05-16 Consent for Treatment [id number]#1.00CD:12 7 Normal [facility] Physician Orderon 06-12-2023 Physician Order [id number]#1.00CD:12 7 Normal [facility] TSHon 06-12-2023 TSH Qn 3.80 m[IU]/L Normal 0.34-5.60 [facility] Comment on above: Performed By: #### 2 579942 ####[facility] [address] [place] [address] BhCG Quanton 05-22-2023 HCG.beta subunit Qn 302140 m[IU]/mL High 1-3 [facility] Comment on above: Result Comment: GEST ATIONAL AGE HCG RANGE (mIU/mL) NON- <1-3 0.2-1 WEEKS 5-50 1-2 WEEKS 50-500 2-3 WEEKS 100-5,000 3-4 WEEKS 500-10,000 4-5 WEEKS 1,000-50,000 5-6 WEEKS 10,000-100,000 6-8 WEEKS 15,000-200,000 8-12 WEEKS 10,000-100,000 Performed By: #### 2 216277 ####[facility] [address] [place] [address] Discharge Instructionson Discharge Instructions [id number]#1.00CD:1 27 Normal [facility] ED Clinical Summaryon 2022 ED Clinical Summary Normal [facility] ED Note-Physicianon 05-22-20 23 ED Note-Physician Normal [facility] Comment on above: Result Comment: Elec tronically Signed By: Gopi Rodriguez DObr\Date and Time Signed: 05/21/23 23:17 EDT ED Patient Education Noteon 05-22-2023 ED Patient Education Note Normal [facility] ED Patient Summaryon 023 ED Patient Summary Normal [facility] UA With Cult Reflexon 2022 Bacteria LM Ql (Urine sed) TRACE Normal Trace [facility] Comment on above: Performed By: #### 1 5617845 ####[facility] [address] [place] [address] Bilirubin Ql (U) Negative Normal Negative [facility] Comment on above: Performed By: #### 1 9408269 ####[address] [address] Clarity (U) CLEAR Normal Clear [facility] Comment on above: Performed By: #### 1 2125962 ####[address] [address] Color (U) DARK YELLO Abnormal Yellow [facility] Comment on above: Performed By: #### 1 1011721 ####[address] [address] Epithelial cells.squamous LM.HPF (Urine sed) [#/Area] 0-2 Normal 0-2 [facility] Comment on above: Performed By: #### 1 7995890 ####[address] [address] Glucose Test strip (U) [Mass/Vol] Negative Normal Negative [facility] Comment on above: Performed By: #### 1 8795137 ####[address] [address] Hemoglobin Ql (U) TRACE Abnormal Negative [facility] Comment on above: Performed By: #### 1 3210003 ####[facility] [address] [place] [address] Ketones (U) [Mass/Vol] TRACE Abnormal Negative [facility] Comment on above: Performed By: #### 1 0129187 ####[facility] [address] [place] [address] Randlett.plasma/Randlett .RBC (Bld) [Mass ratio] 4-20 Normal 0-3 [facility] Comment on above: Performed By: #### 1 1660243 ####[facility] [address] [place] [address] Mucus Ql (Urine sed) 1+ Normal [facility] Comment on above: Performed By: #### 1 5999839 ####[facility] [address] [place] [address] Nitrite Ql (U) Negative Normal Negative [facility] Comment on above: Performed By: #### 1 9483379 ####[address] [address] pH (U) 6.0 [pH] Invalid Interpretation Code 5.0-9.0 [facility] Comment on above: Performed By: #### 1 8578375 ####[address] [address] Protein (U) [Mass/Vol] 2+ Abnormal Negative [facility] Comment on above: Performed By: #### 1 3258171 ####[address] [address] Specific gravity (U) [Rel density] >=1.030 Invalid Interpretation Code 1.005-1.030 [facility] Comment on above: Performed By: #### 1 7816943 ####[address] [address] Type of Urine collection method Clean Catch Normal [facility] Comment on above: Performed By: #### 1 3044104 ####[address] [address] Urobilinogen Qn (U) 0.2 {Rola'U}/dL Normal 0.0-1.0 [facility] Comment on above: Performed By: #### 1 0074023 ####[address] [address] WBC Auto Ql (U) Negative Normal Negative [facility] Comment on above: Performed By: #### 1 9952376 ####[address] [address] WBC LM.HPF (Urine sed) [#/Area] 0-5 Normal 0-5 [facility] Comment on above: Performed By: #### 1 6891226 ####[address] [place] [address] US 1st Trimesteron 05-22-2023 US 1st Trimester Normal [facility] Auto Diffon 05-21-2023 Basophils/100 WBC (Bld) 1.0 % Normal 0.0-2.0 [facility] Comment on above: Order Comment: Order Added by Discern Expert. Performed By: #### 2 604665, 6448232, 54517765, 99293205, 6751721, 2356347, 5720808 ####[address] [address] Basophils/Leukocytes Auto (Bld) [Pure # fraction] 0.1 E9/L Normal 0.0-0.2 [facility] Comment on above: Order Comment: Order Added by Discern Expert. Performed By: #### 2 330101, 5231112, 53048461, 98608284, 9135187, 4576776, 7268477 ####[address] [address] Eosinophils/100 WBC (Bld) 1.5 % Normal 0.0-8.0 [facility] Comment on above: Order Comment: Order Added by Discern Expert. Performed By: #### 2 169136, 2992110, 28950392, 51133454, 4778451, 6330542, 0255351 ####[address] [address] Eosinophils/Leukocytes Auto (Bld) [Pure # fraction] 0.1 E9/L Normal 0.0-0.5 [facility] Comment on above: Order Comment: Order Added by Discern Expert. Performed By: #### 2 716700, 4855743, 86805813, 59210475, 5450073, 5367553, 5563693 ####[address] [address] Lymphocytes/100 WBC (Bld) 36.6 % Normal 14.0-50.0 [facility] Comment on above: Order Comment: Order Added by Discern Expert. Performed By: #### 2 496573, 4253571, 48670370, 56767354, 9981424, 7994038, 0445353 ####[address] [place] [address] Lymphocytes/Leukocytes Auto (Bld) [Pure # fraction] 2.5 E9/L Normal 1.0-4.0 [facility] Comment on above: Order Comment: Order Added by Discern Expert. Performed By: #### 2 610081, 6044006, 68425444, 54020430, 0763390, 0587252, 3163527 ####[address] [place] [address] Monocytes/100 WBC (Bld) 8.2 % Normal 4.0-14.0 [facility] Comment on above: Order Comment: Order Added by Discern Expert. Performed By: #### 2 319417, 1325680, 02095686, 96206779, 9025154, 2111853, 7651870 ####[address] [address] Monocytes/Leukocytes Auto (Bld) [Pure # fraction] 0.6 E9/L Normal 0.2-1.0 [facility] Comment on above: Order Comment: Order Added by Discern Expert. Performed By: #### 2 005666, 5501576, 95262255, 32467583, 4977705, 4574772, 4112822 ####[address] [address] Neutrophils/100 WBC (Bld) 52.7 % Normal 36.0-75.0 [facility] Comment on above: Order Comment: Order Added by Discern Expert. Performed By: #### 2 161286, 5024343, 43615552, 02526444, 9222430, 2202273, 0762253 ####[address] [place] [address] Neutrophils/Leukocytes Auto (Bld) [Pure # fraction] 3.6 E9/L Normal 2.0-7.5 [facility] Comment on above: Order Comment: Order Added by Discern Expert. Performed By: #### 2 598042, 8214887, 08241762, 28671298, 0661250, 6864793, 4456712 ####[facility] [address] [place] [address] BMPon 05-21-2023 Creatinine [Mass/Vol] 0.7 mg/dL Normal 0.5-1.3 [facility] Comment on above: Performed By: #### 2 716295, 0843318, 67262762, 20665551, 8728227, 8858933, 0598452 ####[facility] [address] [place] [address] Urea nitrogen [Mass/Vol] 8 mg/dL Normal 5-21 [facility] Comment on above: Performed By: #### 2 407153, 8412336, 10404700, 36521724, 7807588, 5287325, 7003187 ####[facility] [address] [place] [address] Urea nitrogen/Creatinine [Mass ratio] 11 No Units Normal 10-20 [facility] Comment on above: Performed By: #### 2 841834, 0630226, 20206791, 62678262, 3659603, 1825051, 6135192 ####[facility] [address] [place] [address] Anion gap [Moles/Vol] 12 mmol/L Normal 6-16 [facility] Comment on above: Performed By: #### 2 274877, 5191959, 43536697, 96159442, 6971778, 6489733, 2708345 ####[facility] [address] [place] [address] Calcium [Mass/Vol] 9.2 mg/dL Normal 8.9-11.1 [facility] Comment on above: Performed By: #### 2 762766, 8319668, 00395342, 35174678, 0762574, 7400802, 5454913 ####[facility] [address] [place] [address] Chloride [Moles/Vol] 104 mmol/L Normal 101-111 [facility] Comment on above: Performed By: #### 2 951501, 1180003, 68342680, 96511084, 3947654, 2075716, 1521191 ####[facility] [address] [place] [address] CO2 [Moles/Vol] 24 mmol/L Normal 21-31 [facility] Comment on above: Performed By: #### 2 774800, 0098086, 39226611, 38633419, 6849088, 1312591, 7973854 ####[facility] [address] [place] [address] Glucose [Mass/Vol] 87 mg/dL Normal 55-199 [facility] Comment on above: Result Comment: If t his glucose result represents a fasting glucose, interpretation should refer to the following reference range: 55-99 mg/dL Performed By: #### 2 730774, 4168821, 67219018, 46616523, 9712836, 8824994, 1208392 ####[facility] [address] [place] [address] Potassium [Moles/Vol] 3.2 mmol/L Low 3.5-5.3 [facility] Comment on above: Performed By: #### 2 073071, 3884450, 56612988, 09395616, 2645579, 6893445, 7108599 ####[facility] [address] [place] [address] Sodium [Moles/Vol] 137 mmol/L Normal 135-145 [facility] Comment on above: Performed By: #### 2 727663, 6757624, 40613292, 19450522, 5726807, 4313861, 7087262 ####[facility] [address] [place] [address] CBC w/ Auto Diffon 3 Erythrocyte distribution width (RBC) [Ratio] 13.3 % Normal 10.9-14.2 [facility] Comment on above: Performed By: #### 2 608954, 1878900, 45335987, 02323477, 3936549, 9866272, 2582305 ####[address] [place] [address] Hematocrit (Bld) [Volume fraction] 39.0 % Normal 34.0-46.0 [facility] Comment on above: Performed By: #### 2 191780, 2544103, 64129842, 40584154, 1579659, 5611497, 7759768 ####[address] [address] Hemoglobin (Bld) [Mass/Vol] 13.3 g/dL Normal 12.0-16.0 [facility] Comment on above: Performed By: #### 2 402122, 8473395, 63199467, 99375597, 2088332, 3403667, 1522838 ####[address] MCH (RBC) [Entitic mass] 30.3 pg Normal 27.0-34.0 [facility] Comment on above: Performed By: #### 2 409089, 6547986, 09837268, 27643187, 7019547, 3128207, 7709569 ####[address] [address] MCHC (RBC) [Mass/Vol] 34.2 g/dL Normal 31.4-36.0 [facility] Comment on above: Performed By: #### 2 312613, 6342313, 07372866, 27366155, 6655302, 1092834, 4905725 ####[address] [address] MCV (RBC) [Entitic vol] 88.7 fL Normal 80.0-100.0 [facility] Comment on above: Performed By: #### 2 882644, 2105944, 27714779, 56913360, 4285805, 2011707, 7363564 ####[address] [place] [address] Platelet mean volume (Bld) [Entitic vol] 7.8 fL Normal 6.4-10.8 [facility] Comment on above: Performed By: #### 2 031814, 3961596, 35017610, 92006329, 3326081, 7595475, 7690794 ####[address] [address] Platelets (Bld) [#/Vol] 225.0 E9/L Normal 150.0-500.0 [facility] Comment on above: Performed By: #### 2 142662, 9562732, 44404860, 08158530, 7191480, 5452157, 0349168 ####[address] [address] RBC (Bld) [#/Vol] 4.4 E12/L Normal 4.3-5.9 [facility] Comment on above: Performed By: #### 2 207029, 1044726, 84574260, 82039156, 7525208, 3749992, 2957593 ####[address] [address] WBC corrected for nucl RBC Auto (Bld) [#/Vol] 6.8 E9/L Normal 4.0-11.0 [facility] Comment on above: Performed By: #### 2 303994, 1159971, 31162049, 83410243, 1418560, 9434356, 2652395 ####[address] [address] CHEMISTRYOrdered By: SYSTEM SYSTEM on 05-21-2023 HCG.beta subunit Qn 330143 m[IU]/mL High 1 - 3 mIU/mL [facility] [...] 120 mL/min/1.73 m2 Normal >=59mL/min/ 1.73 m2 [facility] Chem S Globulin (S) [Mass/Vol] 3.1 g/dL [...] Remisol Consent for Treatmenton Consent for Treatment [id number]#1.00CD:12 7 Normal [facility] HEMATOLOGYOrdered By: SYSTEM SYSTEM on 05-21-2023 Basophils/100 [...] Bilirubin.indirect [Mass or moles/Vol] UTC Abnormal 0.1-0.9 [facility] Comment on above: Result Comment: Resu lt verified by Discern Rule. Performed result UTC (Unable to Calculate) was sent as an Alpha code due the inability to calculate a valid numeric value. Performed By: #### 2 412558, 8126419, 71248459, 83998217, 7532100, 8320350, 5984669 ####[facility] [address] [place] [address] Albumin [Mass/Vol] 3.8 g/dL Normal 3.3-5.0 [facility] Comment on above: Performed By: #### 2 992445, 0145441, 62477952, 30800103, 9859344, 7265047, 2408719 ####[facility] [facility] [address] [place] [address] Albumin/Globulin (S) [Mass conc ratio] 1.2 Normal 1.1-2.2 [facility] Comment on above: Performed By: #### 2 690346, 9267842, 18152667, 80433523, 5111078, 3081470, 0837024 ####[facility] [address] [place] [address] ALP [Catalytic activity/Vol] 42 Int._Unit/L Normal 21-98 [facility] Comment on above: Performed By: #### 2 685248, 0141451, 35159356, 82171025, 0172803, 4702774, 3091044 ####[address] [place] [address] ALT No additional P-5'-P [Catalytic activity/Vol] 13 Int._Unit/L Normal 6-46 [facility] Comment on above: Performed By: #### 2 038103, 2327264, 31969100, 35303089, 9824777, 6481831, 4083820 ####[address] [address] AST [Catalytic activity/Vol] 14 Int._Unit/L Normal 5-43 [facility] Comment on above: Performed By: #### 2 444062, 7162654, 22362028, 73585175, 0809024, 7524777, 7676915 ####[address] [address] Bilirubin [Mass/Vol] 0.5 mg/dL Normal 0.0-1.1 [facility] Comment on above: Performed By: #### 2 223947, 1268970, 72391221, 67115346, 8586238, 5545097, 4227782 ####[address] [place] [address] Globulin (S) [Mass/Vol] 3.1 g/dL Normal 1.4-4.0 [facility] Comment on above: Performed By: #### 2 810579, 2529074, 04260870, 59119400, 3113915, 4097518, 5662726 ####[facility] [address] [place] [address] Protein [Mass/Vol] 6.9 g/dL Normal 6.0-7.8 [facility] Comment on above: Performed By: #### 2 596663, 2086374, 98483559, 96921937, 3862055, 3784626, 6689262 ####[facility] [address] [place] [address] Bilirubin.direct [Mass/Vol] mg/dL Normal 0.1-0.4 [facility] Comment on above: Performed By: #### 2 990897, 3720840, 11806735, 57977731, 7095765, 4058411, 4691892 ####[facility] [address] [place] [address] Lipase Levelon 05-21-2023 Lipase [Catalytic activity/Vol] 31 U/L Normal 13-58 [facility] Comment on above: Performed By: #### 2 005912, 3283669, 33798540, 65007964, 3095453, 6734398, 3289719 ####[facility] [address] [place] [address] Troponin 0 Hr.on 05-21-2023 Troponin I.cardiac [Mass/Vol] 2.50 pg/mL Low 10.10-27.10 [facility] Comment on above: Result Comment: The 95% CI (Confidence Interval) PPV (Positive Predictive Value) for myocardial infarction in females is 38 pg/mL, in males 51 pg/mL. The results should be used in conjunction with clinical conditions of myocardial infarction.(Access High Sensitivity Troponin I Instructions For Use, Ziggy Ross, May 2018) Performed By: #### 2 062677, 4340848, 07073689, 58141199, 5549172, 4928580, 1092112 ####[facility] [address] [place] [address] URINALYSISOrdered By: Jose Miguel nelson on 05-21-2023 [...] Interpretation Code Negative [facility] UA Auto SS Randlett.plasma/Randlett .RBC (Bld) [Mass ratio] 4-20 /HPF Normal [...] [facility] UA Auto SS Urobilinogen Qn (U) 0.9771325 {Rola'U}/dL Normal 0.0 - 1.0 EU/dL [facility] UA Auto SS WBC Auto Ql (U) Negative (05/21/23 10:17 PM) Normal Negative [facility] UA Auto SS WBC LM.HPF (Urine sed) [#/Area] 0-5 /HPF Normal 0-5/HPF [facility] UA Auto SS eGFRon 05-21-2023 GFR/1.73 sq M.predicted among non-blacks MDRD (S/P/Bld) [Vol rate/Area] 120 mL/min/1.73 m2 Normal >=59 [facility] Comment on above: Order Comment: Order added by Discern Expert. Result Comment: Open End Spinning Operator lucy kidney disease could be indicated at eGFR's of less than 60 mL/min/1.73m2. Kidney failure is indicated at less than 15 mL/min/1.73m2. Performed By: #### 2 440587, 6702008, 86018404, 37639152, 5106634, 0840421, 9800855 ####[facility] [address] [place] [address] PAP [id number] 05-03-2023 C. trachomatis rRNA MAHAD+probe Ql (Cvx) Negative Invalid Interpretation Code Negative [facility] Comment on above: Performed By: #### 3 [id number] ####[facility] [address] [place] [address] Cytology report Cyto stain Doc (Cvx/Vag) Note Invalid Interpretation Code [facility] Comment on above: Result Comment: TEST S RESULT FLAG UNITS REF RANGE LAB Clinician Provided Cytology InformationSource.............EndocervixNo. of containers..01 ThinPrep VialDIAGNOSIS: 01NEGATIVE FOR INTRAEPITHELIAL LESION OR MALIGNANCY.Specimen adequacy: 01Satisfactory for evaluation. Endocervical and/or squamous metaplasticcells (endocervical component) are present.Performed by: Eliana Shea Hydrology Technician (ASCP). 01Note: Note 01The Pap smear is [...] High<-Panic Low,>-Panic High,A-Abnormal,AA-Critical Abnormal -----Performed at:[address] [facility] [address] [place] [address]KwfpolJoya Walton MD, Performed By: #### 3 [id number] ####[address] [address] N. gonorrhoeae rRNA MAHAD+probe Ql (Cvx) Negative Invalid Interpretation Code Negative [facility] Comment on above: Result Comment: Perf ormed at: [facility] [address] [id number] MD Anton HinsonPerformed at: =[facility] [address] [id number] MD Anton Hinson Performed By: #### 3 [id number] ####[address] [place] [address] C Urineon 05-02-2023 Bacteria identified Cx Nom (U) Normal [facility] Comment on above: Performed By: #### 2 769320 ####[address] [place] [address] HIV Screen 4th Generation wR fxon 05-01-2023 HIV 1+2 Ab+HIV1 p24 Ag IA Ql Non-Reactive Invalid Interpretation Code Non Reactive [facility] Comment on above: Result Comment: HIV NegativeHIV-1/HIV-2 antibodies and HIV-1 p24 antigen were NOT detected.There is no laboratory evidence of HIV infection.Performed at: [id number] [place], [place] [id number] PhD Caroline East Performed By: #### 1 13023148, 58896858, 529904710, 6279621, 9005982 ####[facility] [address] [place] [address] Hep Bs Agon 05-01-2023 HBV surface Ag IA Ql Negative Invalid Interpretation Code Negative [facility] Comment on above: Result Comment: Perf ormed at: [address] [id number] PhD Caroline East Performed By: #### 1 51718792, 63046686, 450988629, 1920050, 8921353 ####[facility] [address] [place] [address] RPR with Conf Rfxon 05-01-20 23 Reagin Ab RPR Ql (S) Non-Reactive Invalid Interpretation Code Non Reactive [facility] Comment on above: Result Comment: Perf ormed at: [address] [id number] PhD Caroline East Performed By: #### 1 49581303, 71378156, 309069951, 6240045, 9612715 ####[facility] [address] [place] [address] Rubella IgGon 05-01-2023 Rubella virus IgG Qn (S) [IU]/mL Low Immune >0.99 [facility] Comment on above: Result Comment: Non- immune <0.90Equivocal 0.90 - 0.99Immune >0.99Performed at: [address] [id number] PhD Caroline East Performed By: #### 1 77346952, 89536460, 830569499, 1853423, 1178225 ####[facility] [address] [place] [address] ABO/Rhon 04-30-2023 ABO/Rh Positive Invalid Interpretation Code [facility] Comment on above: Performed By: #### 2 630548, 98483612 ####[facility] [address] [place] [address] ABSCon 04-30-2023 ABSC Gel Interp Negative Normal [facility] Comment on above: Performed By: #### 2 090867, 49825733 ####[address] [place] [address] BLOOD BANKOrdered By: Diamond Junior on 04-30-2023 ABO/Rh Interp Positive Invalid Interpretation Code [facility] BB Subsection ABSC Gel Interp Negative (04/30/23 9:30 AM) Normal [facility] BB Subsection BhCG Quanton 04-30-2023 [place] [address] m[IU]/mL High 1-3 [facility] Comment on above: Result Comment: GEST ATIONAL AGE HCG RANGE (mIU/mL) NON- <1-3 0.2-1 WEEKS 5-50 1-2 WEEKS 50-500 2-3 WEEKS 100-5,000 3-4 WEEKS 500-10,000 4-5 WEEKS 1,000-50,000 5-6 WEEKS 10,000-100,000 6-8 WEEKS 15,000-200,000 8-12 WEEKS 10,000-100,000 Performed By: #### 2 381455 ####[facility] [address] [place] [address] CBC w/Indiceson 04-30-2023 Erythrocyte distribution width (RBC) [Ratio] 13.7 % Normal 10.9-14.2 [facility] Comment on above: Performed By: #### 1 17279026, 45326858, 125756852, 8437093, 2108539 ####[facility] [address] [place] [address] Hematocrit (Bld) [Volume fraction] 40.7 % Normal 34.0-46.0 [facility] Comment on above: Performed By: #### 1 10484803, 81500177, 589238428, 5815065, 6191136 ####[facility] [address] [place] [address] Hemoglobin (Bld) [Mass/Vol] 13.8 g/dL Normal 12.0-16.0 [facility] Comment on above: Performed By: #### 1 72562359, 98122066, 799462598, 0070107, 5604478 ####[address] [address] MCH (RBC) [Entitic mass] 30.5 pg Normal 27.0-34.0 [facility] Comment on above: Performed By: #### 1 46157302, 83842547, 926617638, 9010254, 0140406 ####[address] [address] MCHC (RBC) [Mass/Vol] 33.9 g/dL Normal 31.4-36.0 [facility] Comment on above: Performed By: #### 1 10924910, 34782272, 289184570, 0915293, 6255202 ####[address] [address] MCV (RBC) [Entitic vol] 89.9 fL Normal 80.0-100.0 [facility] Comment on above: Performed By: #### 1 81619726, 03485155, 658943817, 2115838, 0857277 ####[address] [place] [address] Platelet mean volume (Bld) [Entitic vol] 8.2 fL Normal 6.4-10.8 [facility] Comment on above: Performed By: #### 1 40720496, 29731541, 069111201, 1423713, 2828194 ####[address] [place] [address] Platelets (Bld) [#/Vol] 279.0 E9/L Normal 150.0-500.0 [facility] Comment on above: Performed By: #### 1 70179995, 48418657, 294771714, 1847579, 5418763 ####[facility] [address] [place] [address] RBC (Bld) [#/Vol] 4.5 E12/L Normal 4.3-5.9 [facility] Comment on above: Performed By: #### 1 93990770, 43545706, 057873856, 3477324, 8400751 ####[facility] [address] [place] [address] WBC corrected for nucl RBC Auto (Bld) [#/Vol] 5.8 E9/L Normal 4.0-11.0 [facility] Comment on above: Performed By: #### 1 81767798, 24948757, 850397031, 4265068, 1685672 ####[facility] [address] [place] [address] CHEMISTRYOrdered By: Patients Know Best SYSTEM on 04-30-2023 [place] [address] m[IU]/mL High 1 - 3 mIU/mL [facility] Remisol Consent for Treatmenton 04-14 Consent for Treatment [id number]#1.00CD:12 7 Normal [facility] HEMATOLOGYOrdered By: Temi Romero on 04-30-2023 Erythrocyte [...] 33.9 g/dL Normal 31.4 - 36.0 gm/dL [facility] HemeAutoSS MCV (RBC) [Entitic vol] 89.9 fL Normal 80.0 - 100.0 fL [facility] HemeAutoSS Platelet mean volume (Bld) [Entitic vol] 8.2 fL Normal 6.4 - 10.8 fL [facility] HemeAutoSS Platelets (Bld) [#/Vol] 279.0 E9/L Normal 150.0 - 500.0 E9/L [facility] HemeAutoSS RBC (Bld) [#/Vol] 4.5 E12/L Normal 4.3 - 5.9 E12/L [facility] HemeAutoSS WBC corrected for nucl RBC Auto (Bld) [#/Vol] 5.8 E9/L Normal 4.0 - 11.0 E9/L [facility] HemeAutoSS PAP [id number] 04-30-2023 Collection Technique BRUSH-SPATULA Normal [facility] Comment on above: Performed By: #### 3 [id number] ####[facility] [address] [place] [address] Gynecological Body Site ENDOCERVIX Normal [facility] Comment on above: Performed By: #### 3 [id number] ####[facility] [address] [place] [address] Physician Orderon 04-30-2023 Physician Order [id number]#1.00CD:1 27 Normal [facility] Physician Order [id number]#1.00CD:1 27 Normal [facility] BhCG Quanton 04-26-2023 [place] [address] m[IU]/mL High 1-3 [facility] Comment on above: Result Comment: GEST ATIONAL AGE HCG RANGE (mIU/mL) NON- <1-3 0.2-1 WEEKS 5-50 1-2 WEEKS 50-500 2-3 WEEKS 100-5,000 3-4 WEEKS 500-10,000 4-5 WEEKS 1,000-50,000 5-6 WEEKS 10,000-100,000 6-8 WEEKS 15,000-200,000 8-12 WEEKS 10,000-100,000 Performed By: #### 2 304421 ####[facility] [address] [place] [address] CHEMISTRYOrdered By: SYSTEM SYSTEM on 04-26-2023 [place] [address] m[IU]/mL High 1 - 3 mIU/mL [facility] Remisol Consent for Treatmenton 04-14 Consent for Treatment [id number]#1.00CD:12 7 Normal [facility] Discharge Instructionson Discharge Instructions [id number]#1.00CD:1 27 Normal [facility] ED Clinical Summaryon 2022 ED Clinical Summary Normal [facility] ED Note-Physicianon 04-26-20 ED Note-Physician Normal [facility] Comment on above: Result Comment: Elec tronically Signed By: Jos Ugalde PA-C\.br\Date and Time Signed: 04/26/23 10:59 EDT\.br\Electronically Co-Signed By: Laura Noel M.D.\.br\Date and Time Co-Signed: 04/26/23 11:01 EDT ED Patient Education Noteon 04-26-2023 ED Patient Education Note Normal [facility] ED Patient Summaryon 023 ED Patient Summary Normal [facility] UA With Cult Reflexon 2022 Bilirubin Ql (U) Negative Normal Negative [facility] Comment on above: Performed By: #### 1 1459287 ####[facility] [address] [place] [address] Clarity (U) CLEAR Normal Clear [facility] Comment on above: Performed By: #### 1 3698473 ####[facility] [address] [place] [address] Color (U) YELLOW Normal Yellow [facility] Comment on above: Performed By: #### 1 5110671 ####[facility] [address] [place] [address] Crystals LM Ql (Urine sed) Present Normal [facility] Comment on above: Performed By: #### 1 8212679 ####[address] [address] Epithelial cells.squamous LM.HPF (Urine sed) [#/Area] 0-2 Normal 0-2 [facility] Comment on above: Performed By: #### 1 2959640 ####[address] [address] Glucose Test strip (U) [Mass/Vol] Negative Normal Negative [facility] Comment on above: Performed By: #### 1 3576873 ####[address] [address] Hemoglobin Ql (U) Negative Normal Negative [facility] Comment on above: Performed By: #### 1 8544545 ####[address] [address] Ketones (U) [Mass/Vol] Negative Normal Negative [facility] Comment on above: Performed By: #### 1 2452436 ####[address] [address] Randlett.plasma/Randlett .RBC (Bld) [Mass ratio] 0-3 Normal 0-3 [facility] Comment on above: Performed By: #### 1 0032387 ####[address] [address] Mucus Ql (Urine sed) 2+ Normal [facility] Comment on above: Performed By: #### 1 5819220 ####[address] [address] Nitrite Ql (U) Negative Normal Negative [facility] Comment on above: Performed By: #### 1 8671198 ####[address] [address] pH (U) 8.5 [pH] Invalid Interpretation Code 5.0-9.0 [facility] Comment on above: Performed By: #### 1 5387876 ####[facility] [address] [place] [address] Protein (U) [Mass/Vol] Negative Normal Negative Fi [facility] Comment on above: Performed By: #### 1 1042582 ####[facility] [address] [place] [address] Specific gravity (U) [Rel density] 1.015 Invalid Interpretation Code 1.005-1.030 [facility] Comment on above: Performed By: #### 1 6030461 ####[facility] [address] [place] [address] Type of Urine collection method Clean Catch Normal [facility] Comment on above: Performed By: #### 1 4106988 ####[address] [address] Urobilinogen Qn (U) 1.0 {Rola'U}/dL Normal 0.0-1.0 [facility] Comment on above: Performed By: #### 1 0836622 ####[facility] [address] [place] [address] WBC Auto Ql (U) Negative Normal Negative [facility] Comment on above: Performed By: #### 1 6651391 ####[facility] [address] [place] [address] WBC LM.HPF (Urine sed) [#/Area] 0-5 Normal 0-5 [facility] Comment on above: Performed By: #### 1 6294252 ####[facility] [address] [place] [address] URINALYSISOrdered By: An Lassiter on 04-26-2023 Bilirubin [...] AM) Normal Negative [facility] UA Auto SS Randlett.plasma/Randlett .RBC (Bld) [Mass ratio] 0-3 /HPF Normal 0-3/HPF [facility] UA Auto SS Mucus Ql (Urine sed) 2+ (04/26/23 9:15 AM) Normal [facility] UA Auto SS Nitrite Ql (U) Negative (04/26/23 9:15 AM) Normal Negative [facility] UA Auto SS pH (U) 8.5 *NA* (04/26/23 9:15 AM) Invalid Interpretation Code 5.0 - 9.0 [facility] UA Auto SS Protein (U) [Mass/Vol] Negative (04/26/23 9:15 AM) Normal Negative [facility] UA Auto SS Specific gravity (U) [Rel density] 1.015 *NA* (04/26/23 9:15 AM) Invalid Interpretation Code 1.005 - 1.030 [facility] UA Auto SS UA Spec Desc Clean Catch (04/26/23 9:15 AM) Normal [facility] UA Auto SS Urobilinogen Qn (U) 1.8021091 {Rola'U}/dL Normal 0.0 - 1.0 EU/dL [facility] UA Auto SS WBC Auto Ql (U) Negative (04/26/23 9:15 AM) Normal Negative [facility] UA Auto SS WBC LM.HPF (Urine sed) [#/Area] 0-5 /HPF Normal 0-5/HPF [facility] UA Auto SS US 1st Trimesteron 04-26-2023 US 1st Trimester Normal [facility] US Transvaginalon 04-26-2023 US Transvaginal Normal [facility] Coding Summary.on 02-02-2023 Coding Summary. Normal [facility] Auto Diffon 01-31-2023 Basophils/100 WBC (Bld) 0.3 % Normal 0.0-2.0 [facility] Comment on above: Order Comment: Order Added by Discern Expert. Performed By: #### 2 728771, 1311703, 84240364, 3492912 ####[address] [address] Basophils/Leukocytes Auto (Bld) [Pure # fraction] 0.0 E9/L Normal 0.0-0.2 [facility] Comment on above: Order Comment: Order Added by Discern Expert. Performed By: #### 2 243750, 5041514, 65134399, 4216832 ####[address] [address] Eosinophils/100 WBC (Bld) 2.8 % Normal 0.0-8.0 [facility] Comment on above: Order Comment: Order Added by Discern Expert. Performed By: #### 2 152761, 7375603, 04407621, 3866890 ####[address] [address] Eosinophils/Leukocytes Auto (Bld) [Pure # fraction] 0.1 E9/L Normal 0.0-0.5 [facility] Comment on above: Order Comment: Order Added by Discern Expert. Performed By: #### 2 316649, 1887404, 50143492, 3139443 ####[address] [address] Lymphocytes/100 WBC (Bld) 30.0 % Normal 14.0-50.0 [facility] Comment on above: Order Comment: Order Added by Discern Expert. Performed By: #### 2 670537, 0279533, 11445367, 5309189 ####[address] [address] Lymphocytes/Leukocytes Auto (Bld) [Pure # fraction] 1.5 E9/L Normal 1.0-4.0 [facility] Comment on above: Order Comment: Order Added by Discern Expert. Performed By: #### 2 946049, 6794535, 60411597, 9973181 ####[address] [place] [address] Monocytes/100 WBC (Bld) 7.0 % Normal 4.0-14.0 [facility] Comment on above: Order Comment: Order Added by Discern Expert. Performed By: #### 2 415636, 5682351, 88961937, 1796125 ####[address] [address] Monocytes/Leukocytes Auto (Bld) [Pure # fraction] 0.4 E9/L Normal 0.2-1.0 [facility] Comment on above: Order Comment: Order Added by Discern Expert. Performed By: #### 2 196625, 8319459, 58839888, 0356308 ####[address] [address] Neutrophils/100 WBC (Bld) 59.9 % Normal 36.0-75.0 [facility] Comment on above: Order Comment: Order Added by Discern Expert. Performed By: #### 2 965165, 7887376, 84681523, 0706676 ####[address] [address] Neutrophils/Leukocytes Auto (Bld) [Pure # fraction] 3.1 E9/L Normal 2.0-7.5 [facility] Comment on above: Order Comment: Order Added by Discern Expert. Performed By: #### 2 591668, 5996387, 61304822, 8866301 ####[address] [address] B hCG Qualon 01-31-2023 Beta hCG Ql Negative Normal [facility] Comment on above: Performed By: #### 2 2690085, 19920913 ####[address] [address] BMPon 01-31-2023 Creatinine [Mass/Vol] 0.8 mg/dL Normal 0.5-1.3 [facility] Comment on above: Performed By: #### 2 813223, 9403563, 09816334, 3009998 ####[facility] [address] [place] [address] Urea nitrogen [Mass/Vol] 9 mg/dL Normal 5-21 [facility] Comment on above: Performed By: #### 2 581170, 8323940, 99170146, 1082711 ####[facility] [address] [place] [address] Urea nitrogen/Creatinine [Mass ratio] 11 No Units Normal 10-20 [facility] Comment on above: Performed By: #### 2 418221, 5128314, 37008473, 3079585 ####[facility] [address] [place] [address] Anion gap [Moles/Vol] 12 mmol/L Normal 6-16 [facility] Comment on above: Performed By: #### 2 012705, 6570689, 23179356, 4412814 ####[facility] [address] [place] [address] Calcium [Mass/Vol] 9.1 mg/dL Normal 8.9-11.1 [facility] Comment on above: Performed By: #### 2 836573, 1907745, 73849656, 7663258 ####[facility] [address] [place] [address] Chloride [Moles/Vol] 104 mmol/L Normal 101-111 [facility] Comment on above: Performed By: #### 2 801761, 5382730, 29311176, 8824406 ####[facility] [address] [place] [address] CO2 [Moles/Vol] 23 mmol/L Normal 21-31 [facility] Comment on above: Performed By: #### 2 033473, 5932534, 25494509, 1216478 ####[facility] [address] [place] [address] Glucose [Mass/Vol] 84 mg/dL Normal 55-199 [facility] Comment on above: Result Comment: If t his glucose result represents a fasting glucose, interpretation should refer to the following reference range: 55-99 mg/dL Performed By: #### 2 343116, 1817444, 04286129, 8435437 ####[facility] [address] [place] [address] Potassium [Moles/Vol] 3.5 mmol/L Normal 3.5-5.3 [facility] Comment on above: Performed By: #### 2 529711, 3034555, 30702239, 7726282 ####[facility] [address] [place] [address] Sodium [Moles/Vol] 135 mmol/L Normal 135-145 [facility] Comment on above: Performed By: #### 2 776245, 3531400, 26845110, 4646389 ####[address] [address] CBC w/ Auto Diffon Erythrocyte distribution width (RBC) [Ratio] 12.9 % Normal 10.9-14.2 [facility] Comment on above: Performed By: #### 2 692647, 9744282, 32566765, 2694712 ####[address] [place] [address] Hematocrit (Bld) [Volume fraction] 46.4 % High 34.0-46.0 [facility] Comment on above: Performed By: #### 2 930830, 6991726, 06601250, 8468816 ####[address] [place] [address] Hemoglobin (Bld) [Mass/Vol] 15.0 g/dL Normal 12.0-16.0 [facility] Comment on above: Performed By: #### 2 772112, 1999079, 29859150, 9145678 ####[facility] [address] [place] [address] MCH (RBC) [Entitic mass] 28.6 pg Normal 27.0-34.0 [facility] Comment on above: Performed By: #### 2 431322, 0503753, 54140869, 9502485 ####[address] [place] [address] MCHC (RBC) [Mass/Vol] 32.3 g/dL Normal 31.4-36.0 [facility] Comment on above: Performed By: #### 2 136075, 1678200, 04100743, 5863688 ####[address] MCV (RBC) [Entitic vol] 88.5 fL Normal 80.0-100.0 [facility] Comment on above: Performed By: #### 2 222999, 6196339, 38200086, 5656350 ####[address] Platelet mean volume (Bld) [Entitic vol] 7.9 fL Normal 6.4-10.8 [facility] Comment on above: Performed By: #### 2 351184, 8344079, 52488037, 2329892 ####[address] Platelets (Bld) [#/Vol] 300.0 E9/L Normal 150.0-500.0 [facility] Comment on above: Performed By: #### 2 101173, 2857080, 04612741, 4584563 ####[address] [address] RBC (Bld) [#/Vol] 5.2 E12/L Normal 4.3-5.9 [facility] Comment on above: Performed By: #### 2 333475, 2194126, 87839607, 8295945 ####[address] [address] WBC corrected for nucl RBC Auto (Bld) [#/Vol] 5.1 E9/L Normal 4.0-11.0 [facility] Comment on above: Performed By: #### 2 249288, 9586936, 31811115, 3624360 ####[address] [place] [address] CHEMISTRYOrdered By: SYSTEM SYSTEM on 01-31-2023 Anion gap [Moles/Vol] 12 mmol/L Normal 6 - 16 mEq/L FT Remisol Calcium [Mass/Vol] 9.1 mg/dL Normal 8.9 [...] rate/Area] mL/min/1.73 m2 Normal >=59mL/min/ 1.73 m2 [facility] Chem S Glucose [Mass/Vol] 84 mg/dL Normal [...] Coag CTA Headon 01-31-2023 CTA Head Normal [facility] Consent for Treatmenton 01-13 Consent for Treatment [id number]#1.00CD:12 7 Normal [facility] Discharge Instructionson Discharge Instructions [id number]#1.00CD:1 27 Normal [facility] ED Clinical Summaryon 2022 ED Clinical Summary Normal [facility] ED Note-Physicianon 02-01-20 ED Note-Physician Normal [facility] Comment on above: Result Comment: Elec tronically Signed By: Kristian Guillermo DO.br\Date and Time Signed: 01/31/23 14:00 EDT ED Patient Education Noteon 01-31-2023 ED Patient Education Note Normal [facility] ED Patient Summaryon 023 ED Patient Summary Normal [facility] HEMATOLOGYOrdered By: SYSTEM SYSTEM on 01-31-2023 Basophils/100 [...] 3.1 E9/L Normal 2.0 - 7.5 E9/L [facility] HemeAutoSS HEMATOLOGYOrdered By: Janet Reyes on 01-31-2023 Erythrocyte distribution width (RBC) [Ratio] 12.9 % Normal 10.9 - 14.2 % FT HemeAutoSS Hematocrit (Bld) [Volume fraction] 46.4 % High 34.0 - 46.0 % FT HemeAutoSS Hemoglobin (Bld) [Mass/Vol] 15.0 g/dL Normal 12.0 - 16.0 gm/dL FT HemeAutoSS MCH (RBC) [Entitic mass] 28.6 pg Normal 27.0 - 34.0 pg FT HemeAutoSS MCHC (RBC) [Mass/Vol] 32.3 g/dL Normal 31.4 - 36.0 gm/dL FT HemeAutoSS MCV (RBC) [Entitic vol] 88.5 fL Normal 80.0 - 100.0 fL FT HemeAutoSS Platelet mean volume (Bld) [Entitic vol] 7.9 fL Normal 6.4 - 10.8 fL FT HemeAutoSS Platelets (Bld) [#/Vol] 300.0 E9/L Normal 150.0 - 500.0 E9/L FT HemeAutoSS RBC (Bld) [#/Vol] 5.2 E12/L Normal 4.3 - 5.9 E12/L FT HemeAutoSS WBC corrected for nucl RBC Auto (Bld) [#/Vol] 5.1 E9/L Normal 4.0 - 11.0 E9/L FT HemeAutoSS PT & PTTon 01-31-2023 aPTT Coag (PPP) [Time] 31.3 second(s) Normal 25.1-36.5 [facility] Comment on above: Result Comment: Para meter [...] the same coagulation reagent and instrumentation as [facility]. Currently there are no coagulation studies available worldwide for children to 14 days, and no normal ranges. Heparin therapeutic range (represented by Anti-Factor Xa activity of 0.2 - 0.4 U/mL) corresponds to PTT of 56.6 - 109.0 sec. Performed By: #### 2 1550121, [id number] ####[facility] [address] [email or web address] [address] INR Coag (PPP) [Relative time] 1.1 {INR} Invalid Interpretation Code [facility] Comment on above: Result Comment: INR results are specifically intended to assess patients stabilized on long-term Anticoagulation therapy suggested INR?s ?Less Intensive Anticoagulation? 2.0 ? 3.0Conventional Range 3.0 ? 4.5 Performed By: #### 2 [id number], [id number] ####[facility] [address] [email or web address] [address] PT Coag (PPP) [Time] 12.3 second(s) Normal 9.4-12.5 [facility] Comment on above: Result Comment: 15 d [...] the same coagulation reagent and instrumentation as [facility]. Currently there are no coagulation studies available worldwide for children to 14 days, and no normal ranges. Performed By: #### 2 3696214, [id number] ####[facility] [address] [place] [address] Pre-Arrival Noteon 3 Pre-Arrival Note Normal [facility] SEROLOGYOrdered By: Nova Mccarty on 01-31-2023 Beta hCG Ql Negative (01/31/23 10:14 AM) Normal [facility] Man Sero eGFRon 01-31-2023 GFR/1.73 sq M.predicted among blacks MDRD (S/P/Bld) [Vol rate/Area] mL/min/{1.73_m2} Normal >=59 [facility] Comment on above: Order Comment: Order added by Discern Expert. Result Comment: eGFR is race adjusted. AA=. Performed By: #### 2 351695, 7410207, 93398592, 3888275 ####[facility] [address] [place] [address] GFR/1.73 sq M.predicted among non-blacks MDRD (S/P/Bld) [Vol rate/Area] mL/min/{1.73_m2} Normal >=59 [facility] Comment on above: Order Comment: Order added by Discern Expert. Result Comment: Open End Spinning Operator lucy kidney disease could be indicated at eGFR's of less than 60 mL/min/1.73m2. Kidney failure is indicated at less than 15 mL/min/1.73m2. Performed By: #### 2 091599, 8953708, 84601091, 8546358 ####[facility] [address] [place] [address] Nursing Assessmenton 023 Nursing Assessment [id number]#1.00CD:1 27 Normal [facility] Coding Summary.on 10-02-2022 Coding Summary. Normal [facility] Coding Summary. Normal [facility] Delivery Summaryon 2 Delivery Summary Normal [facility] Comment on above: Result Comment: Elec tronically Signed By: Fabiana MARION, Luis Carlos Byrd\.br\Date and Time Signed: 09/29/22 09:25 EST General Message Officeon General Message Office Normal [facility] Insurance Correspondence Off iceon 09-28-2022 Insurance Correspondence Office [id number]#1.00CD:1 27 Normal [facility] Discharge Instructionson Discharge Instructions [id number]#1.00CD:12 7 Normal [facility] Inpatient Clinical Summaryon 09-27-2022 Inpatient Clinical Summary Normal [facility] Inpatient Patient Summaryon 09-27-2022 Inpatient Patient Summary Normal [facility] CBC w/Indiceson 09-26-2022 Erythrocyte distribution width (RBC) [Ratio] 13.1 % Normal 10.9-14.2 [facility] Comment on above: Performed By: #### 2 879355 ####[facility] [address] [place] [address] Hematocrit (Bld) [Volume fraction] 32.1 % Low 34.0-46.0 [facility] Comment on above: Performed By: #### 2 685201 ####[facility] [address] [place] [address] Hemoglobin (Bld) [Mass/Vol] 11.1 g/dL Low 12.0-16.0 [facility] Comment on above: Performed By: #### 2 761093 ####[facility] [address] [place] [address] MCH (RBC) [Entitic mass] 30.9 pg Normal 27.0-34.0 [facility] Comment on above: Performed By: #### 2 660585 ####[facility] [address] [place] [address] MCHC (RBC) [Mass/Vol] 34.5 g/dL Normal 31.4-36.0 [facility] Comment on above: Performed By: #### 2 722813 ####[facility] [address] [place] [address] MCV (RBC) [Entitic vol] 89.7 fL Normal 80.0-100.0 [facility] Comment on above: Performed By: #### 2 273720 ####[facility] [address] [place] [address] Platelet mean volume (Bld) [Entitic vol] 10.1 fL Normal 6.4-10.8 [facility] Comment on above: Performed By: #### 2 127968 ####[facility] [address] [place] [address] Platelets (Bld) [#/Vol] 204.0 E9/L Normal 150.0-500.0 [facility] Comment on above: Performed By: #### 2 213665 ####[address] [address] RBC (Bld) [#/Vol] 3.6 E12/L Low 4.3-5.9 [facility] Comment on above: Performed By: #### 2 988533 ####[address] [address] WBC corrected for nucl RBC Auto (Bld) [#/Vol] 23.2 E9/L High 4.0-11.0 [facility] Comment on above: Performed By: #### 2 866057 ####[address] [address] Nursing Assessmenton 022 Nursing Assessment [id number]#1.00CD:12 7 Normal [facility] Progress Note-Physicianon Progress Note-Physician [facility] Comment on above: Result Comment: Elec tronically Signed By: Fabiana MARION, Luis Carlos Byrd\.medina\Date and Time Signed: 09/26/22 08:19 EST Coding Summary.on 09-25-2022 Coding Summary. Normal [facility] Coding Summary. Normal [facility] Consenton 09-25-2022 Consent [id number]#1.00CD:1 27 Normal [facility] Consent for Anesthesiaon Consent for Anesthesia [id number]#1.00CD:12 7 Normal [facility] Discharge Instructionson Discharge Instructions [id number]#1.00CD:1 27 Normal [facility] Help Me Grow Referralon 09-14 Help Me Grow Referral [id number]#1.00CD:12 7 Normal [facility] Recordson Records [id number]#1.00CD:12 7 Normal [facility] Progress Note-Physicianon Progress Note-Physician [facility] Comment on above: Result Comment: Elec tronically Signed By: Jimmy Corcoran Jr., DO\.br\Date and Time Signed: 09/25/22 08:31 EST Progress Note-Physician Normal [facility] Comment on above: Result Comment: Elec tronically Signed By: Jimmy Corcoran Jr., DO\.br\Date and Time Signed: 09/25/22 08:31 EST UA With Cult Reflexon 2021 Bilirubin Ql (U) Negative Normal Negative [facility] Comment on above: Order Comment: Urina ry Catheter Insertion triggered Urinalysis With Culture Reflex order by discern. Performed By: #### 1 7805228 ####[facility] [address] [place] [address] Clarity (U) CLEAR Normal Clear [facility] Comment on above: Order Comment: Urina ry Catheter Insertion triggered Urinalysis With Culture Reflex order by discern. Performed By: #### 1 4955389 ####[facility] [address] [place] [address] Color (U) YELLOW Normal Yellow [facility] Comment on above: Order Comment: Urina ry Catheter Insertion triggered Urinalysis With Culture Reflex order by discern. Performed By: #### 1 4942753 ####[facility] [address] [place] [address] Epithelial cells.squamous LM.HPF (Urine sed) [#/Area] 0-2 Normal 0-2 [facility] Comment on above: Order Comment: Urina ry Catheter Insertion triggered Urinalysis With Culture Reflex order by discern. Performed By: #### 1 0301611 ####[facility] [address] [place] [address] Glucose Test strip (U) [Mass/Vol] Negative Normal Negative [facility] Comment on above: Order Comment: Urina ry Catheter Insertion triggered Urinalysis With Culture Reflex order by discern. Performed By: #### 1 1859989 ####[facility] [address] [place] [address] Hemoglobin Ql (U) Negative Normal Negative [facility] Comment on above: Order Comment: Urina ry Catheter Insertion triggered Urinalysis With Culture Reflex order by discern. Performed By: #### 1 6755892 ####[facility] [address] [place] [address] Ketones (U) [Mass/Vol] Negative Normal Negative [facility] Comment on above: Order Comment: Urina ry Catheter Insertion triggered Urinalysis With Culture Reflex order by discern. Performed By: #### 1 2869646 ####[facility] [address] [place] [address] Randlett.plasma/Randlett .RBC (Bld) [Mass ratio] 0-3 Normal 0-3 [facility] Comment on above: Order Comment: Urina ry Catheter Insertion triggered Urinalysis With Culture Reflex order by discern. Performed By: #### 1 9348360 ####[facility] [address] [place] [address] Nitrite Ql (U) Negative Normal Negative [facility] Comment on above: Order Comment: Urina ry Catheter Insertion triggered Urinalysis With Culture Reflex order by discern. Performed By: #### 1 8691127 ####[facility] [address] [place] [address] pH (U) 7.0 [pH] Invalid Interpretation Code 5.0-9.0 [facility] Comment on above: Order Comment: Urina ry Catheter Insertion triggered Urinalysis With Culture Reflex order by discern. Performed By: #### 1 7749374 ####[address] [address] Protein (U) [Mass/Vol] Negative Normal Negative Fi [facility] Comment on above: Order Comment: Urina ry Catheter Insertion triggered Urinalysis With Culture Reflex order by discern. Performed By: #### 1 5034023 ####[place] [address] Specific gravity (U) [Rel density] <=1.005 Invalid Interpretation Code 1.005-1.030 [facility] Comment on above: Order Comment: Urina ry Catheter Insertion triggered Urinalysis With Culture Reflex order by discern. Performed By: #### 1 9725062 ####[place] [address] Type of Urine collection method Vyas Normal [facility] Comment on above: Order Comment: Urina ry Catheter Insertion triggered Urinalysis With Culture Reflex order by discern. Performed By: #### 1 6301127 ####[place] [address] Urobilinogen Qn (U) 0.2 {Rola'U}/dL Normal 0.0-1.0 [facility] Comment on above: Order Comment: Urina ry Catheter Insertion triggered Urinalysis With Culture Reflex order by discern. Performed By: #### 1 7215597 ####[address] WBC Auto Ql (U) Negative Normal Negative [facility] Comment on above: Order Comment: Urina ry Catheter Insertion triggered Urinalysis With Culture Reflex order by discern. Performed By: #### 1 0299224 ####[address] WBC LM.HPF (Urine sed) [#/Area] 0-5 Normal 0-5 [facility] Comment on above: Order Comment: Urina ry Catheter Insertion triggered Urinalysis With Culture Reflex order by discern. Performed By: #### 1 1393517 ####[address] [place] [address] Bilirubin Ql (U) Negative Normal Negative [facility] Comment on above: Performed By: #### 1 2956435 ####[facility] [address] [place] [address] Clarity (U) CLEAR Normal Clear [facility] Comment on above: Performed By: #### 1 8171300 ####[facility] [address] [place] [address] Color (U) YELLOW Normal Yellow [facility] Comment on above: Performed By: #### 1 0978373 ####[address] [address] Epithelial cells.squamous LM.HPF (Urine sed) [#/Area] 0-2 Normal 0-2 [facility] Comment on above: Performed By: #### 1 2834912 ####[facility] [address] [place] [address] Glucose Test strip (U) [Mass/Vol] Negative Normal Negative [facility] Comment on above: Performed By: #### 1 6320372 ####[facility] [address] [place] [address] Hemoglobin Ql (U) Negative Normal Negative [facility] Comment on above: Performed By: #### 1 5765767 ####[facility] [address] [place] [address] Ketones (U) [Mass/Vol] Negative Normal Negative [facility] Comment on above: Performed By: #### 1 5627208 ####[facility] [address] [place] [address] Randlett.plasma/Randlett .RBC (Bld) [Mass ratio] 0-3 Normal 0-3 [facility] Comment on above: Performed By: #### 1 0810737 ####[facility] [address] [place] [address] Nitrite Ql (U) Negative Normal Negative [facility] Comment on above: Performed By: #### 1 9976222 ####[address] [address] pH (U) 6.0 [pH] Invalid Interpretation Code 5.0-9.0 [facility] Comment on above: Performed By: #### 1 6460835 ####[place] [address] Protein (U) [Mass/Vol] Negative Normal Negative Fi [facility] Comment on above: Performed By: #### 1 5676711 ####[place] [address] Specific gravity (U) [Rel density] <=1.005 Invalid Interpretation Code 1.005-1.030 [facility] Comment on above: Performed By: #### 1 4753183 ####[place] [address] Type of Urine collection method Clean Catch Normal [facility] Comment on above: Performed By: #### 1 0567012 ####[place] [address] Urobilinogen Qn (U) 0.2 {Rola'U}/dL Normal 0.0-1.0 [facility] Comment on above: Performed By: #### 1 7760771 ####[address] WBC Auto Ql (U) Negative Normal Negative [facility] Comment on above: Performed By: #### 1 2031350 ####[address] WBC LM.HPF (Urine sed) [#/Area] 0-5 Normal 0-5 [facility] Comment on above: Performed By: #### 1 9863751 ####[address] [address] Vaccinationson 09-25-2022 Vaccinations [id number]#1.00CD:1 27 Normal [facility] Vaccinations [id number]#1.00CD:1 27 Normal [facility] ABO/Rhon 09-24-2022 ABO/Rh Positive Invalid Interpretation Code [facility] Comment on above: Performed By: #### 1 0505070, 53945756, 14728134, 5246203 ####[facility] [address] [place] [address] ABO/Rh History Checkon 09-24 ABO/Rh History Check Verified Hx Blood Type Normal [facility] Comment on above: Performed By: #### 1 [id number], 22694871, 56667173, 8080499 ####[facility] [address] [place] [address] ABSCon 09-24-2022 ABSC Gel Interp Negative Normal [facility] Comment on above: Performed By: #### 1 4625034, 67517674, 68404289, 1041545 ####[address] [address] Blood Bank ID#on 09-24-2022 BBID# [id number] Invalid Interpretation Code [facility] Comment on above: Performed By: #### 1 8448741, 92691551, 15327508, 2013661 ####[address] [place] [address] CBC w/Indiceson 09-24-2022 Erythrocyte distribution width (RBC) [Ratio] 13.0 % Normal 10.9-14.2 [facility] Comment on above: Performed By: #### 2 896111 ####[address] [address] Hematocrit (Bld) [Volume fraction] 38.0 % Normal 34.0-46.0 [facility] Comment on above: Performed By: #### 2 366700 ####[address] [place] [address] Hemoglobin (Bld) [Mass/Vol] 12.8 g/dL Normal 12.0-16.0 [facility] Comment on above: Performed By: #### 2 379525 ####[place] [address] [address] MCH (RBC) [Entitic mass] 31.3 pg Normal 27.0-34.0 [facility] Comment on above: Performed By: #### 2 779669 ####[address] [address] MCHC (RBC) [Mass/Vol] 33.7 g/dL Normal 31.4-36.0 [facility] Comment on above: Performed By: #### 2 051666 ####[address] [address] MCV (RBC) [Entitic vol] 92.9 fL Normal 80.0-100.0 [facility] Comment on above: Performed By: #### 2 894302 ####[address] [address] Platelet mean volume (Bld) [Entitic vol] 9.8 fL Normal 6.4-10.8 [facility] Comment on above: Performed By: #### 2 632938 ####[address] [address] Platelets (Bld) [#/Vol] 238.0 E9/L Normal 150.0-500.0 [facility] Comment on above: Performed By: #### 2 140034 ####[address] [address] RBC (Bld) [#/Vol] 4.1 E12/L Low 4.3-5.9 [facility] Comment on above: Performed By: #### 2 268492 ####[address] [address] WBC corrected for nucl RBC Auto (Bld) [#/Vol] 12.8 E9/L High 4.0-11.0 [facility] Comment on above: Performed By: #### 2 119540 ####[address] [address] Consent for Treatmenton 09-14 Consent for Treatment [id number]#1.00CD:12 7 [facility] Consent for Treatment [id number]#1.00CD:1 27 [facility] Consent for Treatmenton Consent for Treatment [id number]#1.00CD:12 7 [facility] Discharge Instructionson Discharge Instructions [id number]#1.00CD:12 7 [facility] Inpatient Clinical Summaryon 09-22-2022 Inpatient Clinical Summary [facility] Inpatient Patient Summaryon 09-22-2022 Inpatient Patient Summary [facility] Insurance Correspondence Off iceon 09-22-2022 Insurance Correspondence Office [id number]#1.00CD: 127 [facility] Nursing Assessmenton 022 Nursing Assessment [id number]#1.00CD:1 27 [facility] [facility] Nursing Assessment [id number]#1.00CD:12 7 [facility] Discharge Instructionson Discharge Instructions [id number]#1.00CD:127 [facility] Inpatient Clinical Summaryon 09-20-2022 Inpatient Clinical Summary [facility] Inpatient Patient Summaryon 09-20-2022 Inpatient Patient Summary [facility] Insurance Correspondence Off iceon 09-20-2022 Insurance Correspondence Office [id number]#1.00CD:127 [facility] Consent for Treatmenton Consent for Treatment [id number]#1.00CD:12 7 [facility] Discharge Instructionson Discharge Instructions [id number]#1.00CD:1 27 Normal [facility] Inpatient Clinical Summaryon 09-19-2022 Inpatient Clinical Summary Normal [facility] Inpatient Patient Summaryon 09-19-2022 Inpatient Patient Summary Normal [facility] Insurance Correspondenceon 1 11-20-2021 Insurance Correspondence [id number]#1.00CD:1 27 Normal [facility] UA With Cult Reflexon 2021 Bilirubin Ql (U) Negative Normal Negative [facility] Comment on above: Performed By: #### 1 [id number] ####[facility] [address] [place] [address] Clarity (U) CLEAR Normal Clear [facility] Comment on above: Performed By: #### 1 0621864 ####[facility] [address] [place] [address] Color (U) YELLOW Normal Yellow [facility] Comment on above: Performed By: #### 1 1477496 ####[facility] [address] [place] [address] Epithelial cells.squamous LM.HPF (Urine sed) [#/Area] 0-2 Normal 0-2 [facility] Comment on above: Performed By: #### 1 1140782 ####[facility] [address] [place] [address] Glucose Test strip (U) [Mass/Vol] Negative Normal Negative [facility] Comment on above: Performed By: #### 1 8510037 ####[facility] [address] [place] [address] Hemoglobin Ql (U) Negative Normal Negative [facility] Comment on above: Performed By: #### 1 7735968 ####[facility] [address] [place] [address] Ketones (U) [Mass/Vol] Negative Normal Negative Fi [facility] Comment on above: Performed By: #### 1 2957505 ####[address] [address] Randlett.plasma/Randlett .RBC (Bld) [Mass ratio] 0-3 Normal 0-3 [facility] Comment on above: Performed By: #### 1 0317005 ####[address] [address] Nitrite Ql (U) Negative Normal Negative [facility] Comment on above: Performed By: #### 1 4372528 ####[address] [address] pH (U) 7.0 [pH] Invalid Interpretation Code 5.0-9.0 [facility] Comment on above: Performed By: #### 1 7619234 ####[address] [address] Protein (U) [Mass/Vol] Negative Normal Negative [facility] Comment on above: Performed By: #### 1 2599174 ####[address] [address] Specific gravity (U) [Rel density] <=1.005 Invalid Interpretation Code 1.005-1.030 [facility] Comment on above: Performed By: #### 1 9634855 ####[address] [address] Type of Urine collection method Clean Catch Normal [facility] Comment on above: Performed By: #### 1 9525547 ####[address] [address] Urobilinogen Qn (U) 0.2 {Rola'U}/dL Normal 0.0-1.0 [facility] Comment on above: Performed By: #### 1 1119807 ####[address] [address] WBC Auto Ql (U) Negative Normal Negative [facility] Comment on above: Performed By: #### 1 0549745 ####[address] [address] WBC LM.HPF (Urine sed) [#/Area] 0-5 Normal 0-5 [facility] Comment on above: Performed By: #### 1 9868716 ####[facility] [address] [place] [address] URINALYSISOrdered By: Jeanette Castle on 09-19-2022 Bilirubin [...] AM) Normal Negative [facility] UA Auto SS Randlett.plasma/Randlett .RBC (Bld) [Mass ratio] 0-3 /HPF Normal [...] [facility] UA Auto SS Urobilinogen Qn (U) 0.3623857 {Rola'U}/dL Normal 0.0 - 1.0 EU/dL [facility] UA Auto SS WBC Auto Ql (U) Negative (09/19/22 1:44 AM) Normal Negative [facility] UA Auto SS WBC LM.HPF (Urine sed) [#/Area] 0-5 /HPF Normal 0-5/HPF [facility] UA Auto SS Coding Summary.on 09-18-2022 Coding Summary. Normal [facility] Nursing Assessmenton Nursing Assessment [id number]#1.00CD:12 7 Normal [facility] Coding Summary.on 09-15-2022 Coding Summary. Normal [facility] Coding Summary.on 09-14-2022 Coding Summary. Normal [facility] Consent for Treatmenton Consent for Treatment [id number]#1.00CD:12 7 [facility] Consent for Treatment [id number]#1.00CD:12 7 Normal [facility] Discharge Instructionson Discharge Instructions [id number]#1.00CD:12 7 Normal [facility] Inpatient Clinical Summaryon 09-14-2022 Inpatient Clinical Summary Normal [facility] Inpatient Patient Summaryon 09-14-2022 Inpatient Patient Summary [facility] Insurance Correspondence Off iceon 09-14-2022 Insurance Correspondence Office [id number]#1.00CD:12 7 Normal [facility] Nursing Assessmenton Nursing Assessment [id number]#1.00CD:1 27 Normal [facility] UA With Cult Reflexon 2021 Bacteria LM Ql (Urine sed) TRACE Normal Trace [facility] Comment on above: Performed By: #### 1 [id number] ####[facility] [address] [place] [address] Bilirubin Ql (U) Negative Normal Negative [facility] Comment on above: Performed By: #### 1 5015654 ####[facility] [address] [place] [address] Clarity (U) CLEAR Normal Clear [facility] Comment on above: Performed By: #### 1 2583687 ####[facility] [address] [place] [address] Color (U) YELLOW Normal Yellow [facility] Comment on above: Performed By: #### 1 0128080 ####[facility] [address] [place] [address] Crystals LM Ql (Urine sed) Present Normal [facility] Comment on above: Performed By: #### 1 7834796 ####[address] [address] Epithelial cells.squamous LM.HPF (Urine sed) [#/Area] 0-2 Normal 0-2 [facility] Comment on above: Performed By: #### 1 1804121 ####[facility] [address] [place] [address] Glucose Test strip (U) [Mass/Vol] Negative Normal Negative [facility] Comment on above: Performed By: #### 1 6025645 ####[facility] [address] [place] [address] Hemoglobin Ql (U) Negative Normal Negative [facility] Comment on above: Performed By: #### 1 3398512 ####[facility] [address] [place] [address] Ketones (U) [Mass/Vol] Negative Normal Negative Fi [facility] Comment on above: Performed By: #### 1 5309879 ####[facility] [address] [place] [address] Randlett.plasma/Randlett .RBC (Bld) [Mass ratio] 0-3 Normal 0-3 [facility] Comment on above: Performed By: #### 1 6673534 ####[facility] [address] [place] [address] Mucus Ql (Urine sed) TRACE Normal [facility] Comment on above: Performed By: #### 1 0128061 ####Longoria David [address] [address] Nitrite Ql (U) Negative Normal Negative [facility] Comment on above: Performed By: #### 1 5461337 ####[address] [address] pH (U) 6.0 [pH] Invalid Interpretation Code 5.0-9.0 [facility] Comment on above: Performed By: #### 1 5585368 ####[place] [address] Protein (U) [Mass/Vol] Negative Normal Negative [facility] Comment on above: Performed By: #### 1 1714783 ####[place] [address] Specific gravity (U) [Rel density] <=1.005 Invalid Interpretation Code 1.005-1.030 [facility] Comment on above: Performed By: #### 1 7011062 ####[place] [address] Type of Urine collection method Random Urine Normal [facility] Comment on above: Performed By: #### 1 3128214 ####[place] [address] Urobilinogen Qn (U) 0.2 {Rloa'U}/dL Normal 0.0-1.0 [facility] Comment on above: Performed By: #### 1 5850756 ####[place] [address]157 WBC Auto Ql (U) TRACE Abnormal Negative [facility] Comment on above: Performed By: #### 1 8043534 ####[address] [address] WBC LM.HPF (Urine sed) [#/Area] 0-5 Normal 0-5 [facility] Comment on above: Performed By: #### 1 0404315 ####[address] [address] URINALYSISOrdered By: An Lassiter on 09-14-2022 Bacteria [...] AM) Normal Negative [facility] UA Auto SS Randlett.plasma/Randlett .RBC (Bld) [Mass ratio] 0-3 /HPF Normal [...] Desc Random Urine (09/14/22 9:25 AM) Normal [facility] UA Auto SS Urobilinogen Qn (U) 0.9037601 {Rola'U}/dL Normal 0.0 - 1.0 EU/dL [facility] UA Auto SS WBC Auto Ql (U) Trace *ABN* (09/14/22 9:25 AM) Invalid Interpretation Code Negative [facility] UA Auto SS WBC LM.HPF (Urine sed) [#/Area] 0-5 /HPF Normal 0-5/HPF [facility] UA Auto SS Coding Summary.on 09-12-2022 Coding Summary. Normal [facility] Consent for Treatmenton 08-16 Consent for Treatment [id number]#1.00CD:12 7 Normal [facility] Discharge Instructionson Discharge Instructions [id number]#1.00CD:12 7 [facility] Discharge Instructions [id number]#1.00CD:1 27 Normal [facility] Inpatient Clinical Summaryon 09-12-2022 Inpatient Clinical Summary Normal [facility] Inpatient Patient Summaryon 09-12-2022 Inpatient Patient Summary Normal [facility] Insurance Correspondenceon 11-12-2021 Insurance Correspondence [id number]#1.00CD:12 7 [facility] Insurance Correspondence Off iceon 09-12-2022 Insurance Correspondence Office [id number]#1.00CD:1 27 Normal [facility] Nursing Assessmenton 022 Nursing Assessment [id number]#1.00CD:1 27 Normal [facility] UA With Cult Reflexon 2021 Bilirubin Ql (U) Negative Normal Negative [facility] Comment on above: Performed By: #### 1 1237187 ####[facility] [address] [place] [address] Clarity (U) CLEAR Normal Clear [facility] Comment on above: Performed By: #### 1 1049714 ####[facility] [address] [place] [address] Color (U) YELLOW Normal Yellow [facility] Comment on above: Performed By: #### 1 6092833 ####[facility] [address] [place] [address] Crystals LM Ql (Urine sed) Present Normal [facility] Comment on above: Performed By: #### 1 8268762 ####[place] [address] [place] [address] Epithelial cells.squamous LM.HPF (Urine sed) [#/Area] 3-4 Normal 0-2 [facility] Comment on above: Performed By: #### 1 7596914 ####[facility] [address] [place] [address] Glucose Test strip (U) [Mass/Vol] Negative Normal Negative [facility] Comment on above: Performed By: #### 1 4353766 ####[address] [address] Hemoglobin Ql (U) Negative Normal Negative [facility] Comment on above: Performed By: #### 1 5178327 ####[facility] [address] [place] [address] Ketones (U) [Mass/Vol] Negative Normal Negative [facility] Comment on above: Performed By: #### 1 9111461 ####[facility] [address] [place] [address] Randlett.plasma/Randlett .RBC (Bld) [Mass ratio] 0-3 Normal 0-3 [facility] Comment on above: Performed By: #### 1 2859801 ####[facility] [address] [place] [address] Nitrite Ql (U) Negative Normal Negative [facility] Comment on above: Performed By: #### 1 8015607 ####[place] [address] [place] [address] pH (U) 6.0 [pH] Invalid Interpretation Code 5.0-9.0 [facility] Comment on above: Performed By: #### 1 8561141 ####[facility] [address] [place] [address] Protein (U) [Mass/Vol] Negative Normal Negative [facility] Comment on above: Performed By: #### 1 7299845 ####[facility] [address] [place] [address] Specific gravity (U) [Rel density] 1.010 Invalid Interpretation Code 1.005-1.030 [facility] Comment on above: Performed By: #### 1 6322528 ####[facility] [address] [place] [address] Type of Urine collection method Clean Catch Normal [facility] Comment on above: Performed By: #### 1 7688470 ####[facility] [address] [place] [address] Urobilinogen Qn (U) 0.2 {Rola'U}/dL Normal 0.0-1.0 [facility] Comment on above: Performed By: #### 1 3018381 ####[place] [address] WBC Auto Ql (U) Negative Normal Negative [facility] Comment on above: Performed By: #### 1 7747545 ####[facility] [address] [place] [address] WBC LM.HPF (Urine sed) [#/Area] 0-5 Normal 0-5 [facility] Comment on above: Performed By: #### 1 6000460 ####[facility] [address] [place], [place] [address] URINALYSISOrdered By: Jose Miguel nelson on 09-12-2022 [...] PM) Normal Negative [facility] UA Auto SS Randlett.plasma/Randlett .RBC (Bld) [Mass ratio] 0-3 /HPF Normal [...] [facility] UA Auto SS Urobilinogen Qn (U) 0.8237399 {Rola'U}/dL Normal 0.0 - 1.0 EU/dL [facility] UA Auto SS WBC Auto Ql (U) Negative (09/12/22 8:15 PM) Normal Negative [facility] UA Auto SS WBC LM.HPF (Urine sed) [#/Area] 0-5 /HPF Normal 0-5/HPF [facility] UA Auto SS Coding Summary.on 09-11-2022 Coding Summary. Normal [facility] Consent for Treatmenton 08-16 Consent for Treatment [id number]#1.00CD:12 7 Normal [facility] Discharge Instructionson Discharge Instructions [id number]#1.00CD:1 27 Normal [facility] Inpatient Clinical Summaryon 09-08-2022 Inpatient Clinical Summary Normal [facility] Inpatient Patient Summaryon 09-08-2022 Inpatient Patient Summary Normal [facility] Coding Summary.on 09-06-2022 Coding Summary. Normal [facility] Discharge Instructionson Discharge Instructions [id number]#1.00CD:1 27 Normal [facility] ED Clinical Summaryon 2021 ED Clinical Summary Normal [facility] ED Note-Nursingon 09-06-2022 ED Note-Nursing pt given d/c instruc tions and educated on importance of follow up. pt educated on new medications. pt verbalized understanding of instructions and readiness for d/c. pt walked self ambulatory to waiting room in stable condition Normal [facility] ED Patient Education Noteon 09-06-2022 ED Patient Education Note Normal [facility] ED Patient Summaryon 022 ED Patient Summary Normal [facility] XR Chest Single Viewon 09-06 XR Chest Single View Normal [facility] Auto Diffon 09-05-2022 Basophils/100 WBC (Bld) 1.0 % Normal 0.0-2.0 [facility] Comment on above: Order Comment: Order Added by Discern Expert. Performed By: #### 2 040566, 29648342, 55270128, 9732496, 88034461, 86686184, 6867382 ####[facility] [address] [place] [address] Basophils/Leukocytes Auto (Bld) [Pure # fraction] 0.1 E9/L Normal 0.0-0.2 [facility] Comment on above: Order Comment: Order Added by Discern Expert. Performed By: #### 2 034646, 50920359, 87288462, 2907045, 47516223, 21278314, 5221790 ####[facility] [address] [place] [address] Eosinophils/100 WBC (Bld) 1.4 % Normal 0.0-8.0 [facility] Comment on above: Order Comment: Order Added by Discern Expert. Performed By: #### 2 226684, 26654794, 32881167, 6347000, 00797955, 91738671, 6291490 ####[facility] [address] [place] [address] Eosinophils/Leukocytes Auto (Bld) [Pure # fraction] 0.2 E9/L Normal 0.0-0.5 [facility] Comment on above: Order Comment: Order Added by Discern Expert. Performed By: #### 2 306728, 43390229, 91186368, 0240480, 97878515, 24479970, 0574263 ####[place] [address] [place] [address] Lymphocytes/100 WBC (Bld) 18.8 % Normal 14.0-50.0 [facility] Comment on above: Order Comment: Order Added by Discern Expert. Performed By: #### 2 782975, 96194137, 59790055, 6773778, 41106818, 57514863, 0762531 ####[address] [address] Lymphocytes/Leukocytes Auto (Bld) [Pure # fraction] 2.0 E9/L Normal 1.0-4.0 [facility] Comment on above: Order Comment: Order Added by Discern Expert. Performed By: #### 2 761063, 55002086, 50485142, 3312680, 90939341, 31463599, 9122728 ####[place] [address] [place] [address] Monocytes/100 WBC (Bld) 6.8 % Normal 4.0-14.0 [facility] Comment on above: Order Comment: Order Added by Discern Expert. Performed By: #### 2 449480, 06159767, 52541634, 7187177, 42524437, 44315605, 3667725 ####[address] [address] Monocytes/Leukocytes Auto (Bld) [Pure # fraction] 0.7 E9/L Normal 0.2-1.0 [facility] Comment on above: Order Comment: Order Added by Discern Expert. Performed By: #### 2 216480, 01187664, 39318288, 3138322, 32959974, 68357558, 1194278 ####[facility] [address] [place] [address] Neutrophils/100 WBC (Bld) 72.0 % Normal 36.0-75.0 [facility] Comment on above: Order Comment: Order Added by Discern Expert. Performed By: #### 2 584402, 29463875, 31844677, 3459059, 79648436, 09392869, 8781713 ####[facility] [address] [place] [address] Neutrophils/Leukocytes Auto (Bld) [Pure # fraction] 7.8 E9/L High 2.0-7.5 [facility] Comment on above: Order Comment: Order Added by Discern Expert. Performed By: #### 2 419301, 14834087, 93697012, 1691472, 02203886, 20974658, 0019999 ####[facility] [address] [place] [address] BMPon 09-05-2022 Creatinine [Mass/Vol] 0.7 mg/dL Normal 0.5-1.3 [facility] Comment on above: Performed By: #### 2 380489, 44570338, 81937295, 2720493, 84676469, 86856064, 4781726 ####[facility] [address] [place] [address] Urea nitrogen [Mass/Vol] 7 mg/dL Normal 5-21 [facility] Comment on above: Performed By: #### 2 513849, 98925071, 96944480, 6635085, 01365661, 19847650, 2323255 ####[facility] [address] [place] [address] Urea nitrogen/Creatinine [Mass ratio] 10 No Units Normal 10-20 [facility] Comment on above: Performed By: #### 2 020463, 51425124, 88772646, 5520640, 19843313, 07559424, 4931610 ####[facility] [address] [place] [address] Anion gap [Moles/Vol] 10 mmol/L Normal 6-16 [facility] Comment on above: Performed By: #### 2 882583, 14943345, 56491836, 9086261, 50851260, 81983296, 7850500 ####[facility] [address] [place] [address] Calcium [Mass/Vol] 8.8 mg/dL Low 8.9-11.1 [facility] Comment on above: Performed By: #### 2 425111, 15379780, 09772589, 5211489, 52889245, 79140232, 7620805 ####[facility] [address] [place] [address] Chloride [Moles/Vol] 102 mmol/L Normal 101-111 [facility] Comment on above: Performed By: #### 2 718972, 63196751, 49211296, 7822680, 33261935, 74510559, 8731572 ####[facility] [address] [place] [address] CO2 [Moles/Vol] 22 mmol/L Normal 21-31 [facility] Comment on above: Performed By: #### 2 737220, 44451672, 06663832, 6041517, 51949642, 37059693, 9027593 ####[facility] [address] [place] [address] Glucose [Mass/Vol] 87 mg/dL Normal 55-199 [facility] Comment on above: Result Comment: If t his glucose result represents a fasting glucose, interpretation should refer to the following reference range: 55-99 mg/dL Performed By: #### 2 801604, 34637157, 72751133, 3827940, 64128102, 39759789, 6961856 ####[facility] [address] [facility] [place] [address] Potassium [Moles/Vol] 3.3 mmol/L Low 3.5-5.3 [facility] Comment on above: Performed By: #### 2 045105, 57671010, 75431354, 8907970, 33031411, 40896862, 8311645 ####[facility] [address] [place] [address] Sodium [Moles/Vol] 131 mmol/L Low 135-145 [facility] Comment on above: Performed By: #### 2 193100, 33680169, 34522168, 1690240, 43721660, 02203029, 7665000 ####[facility] [address] [place] [address] BNPon 09-05-2022 Int Ctr BNP Pass Normal [facility] Comment on above: Performed By: #### 2 085904, 80704050, 76934988, 5740698, 01688258, 37138766, 2382816 ####[facility] [address] [place] [address] Natriuretic peptide B (Bld) [Mass/Vol] 8 pg/mL Normal 5-80 [facility] Comment on above: Performed By: #### 2 486241, 37272042, 85852229, 1262155, 32802147, 37349760, 9252755 ####[facility] [address] [place] [address] CBC w/ Auto Diffon Erythrocyte distribution width (RBC) [Ratio] 12.7 % Normal 10.9-14.2 [facility] Comment on above: Performed By: #### 2 449595, 29678497, 37341183, 6300495, 39491216, 84357796, 2852057 ####[facility] [address] [place] [address] Hematocrit (Bld) [Volume fraction] 34.2 % Normal 34.0-46.0 [facility] Comment on above: Performed By: #### 2 808891, 17051052, 72657891, 0805656, 35083462, 49811767, 9978841 ####[address] [address] Hemoglobin (Bld) [Mass/Vol] 12.3 g/dL Normal 12.0-16.0 [facility] Comment on above: Performed By: #### 2 667957, 28994324, 60230379, 9028756, 13042325, 44640287, 5934839 ####[address] [address] MCH (RBC) [Entitic mass] 31.8 pg Normal 27.0-34.0 [facility] Comment on above: Performed By: #### 2 433599, 61540479, 05493760, 1231397, 78595773, 23393409, 0742082 ####[address] [address] MCHC (RBC) [Mass/Vol] 35.9 g/dL Normal 31.4-36.0 [facility] Comment on above: Performed By: #### 2 581106, 28465502, 07886911, 8744831, 48098222, 60034781, 3543948 ####[address] [address] MCV (RBC) [Entitic vol] 88.7 fL Normal 80.0-100.0 [facility] Comment on above: Performed By: #### 2 283720, 20458941, 95911766, 9494136, 69330036, 65057478, 4523784 ####[address] [address] Platelet mean volume (Bld) [Entitic vol] 9.8 fL Normal 6.4-10.8 [facility] Comment on above: Performed By: #### 2 028115, 51228882, 78082011, 7336951, 71833255, 71093372, 0809905 ####[address] [address] Platelets (Bld) [#/Vol] 215.0 E9/L Normal 150.0-500.0 [facility] Comment on above: Performed By: #### 2 118847, 57579555, 33354372, 5574241, 43179845, 38909157, 9149418 ####[facility] [address] [place] [address] RBC (Bld) [#/Vol] 3.9 E12/L Low 4.3-5.9 [facility] Comment on above: Performed By: #### 2 651473, 40175373, 97167962, 5269191, 26395737, 46195154, 7989994 ####[facility] [address] [place] [address] WBC corrected for nucl RBC Auto (Bld) [#/Vol] 10.9 E9/L Normal 4.0-11.0 [facility] Comment on above: Result Comment: Slid e reviewed by ts. Performed By: #### 2 075162, 73504351, 56200525, 3083338, 52453829, 41495692, 3744227 ####[facility] [address] [place] [address] CHEMISTRYOrdered By: SYSTEM SYSTEM on 09-05-2022 Anion gap [Moles/Vol] 10 mmol/L Normal 6 - 16 mEq/L [facility] Remisol Calcium [Mass/Vol] 8.8 mg/dL Low 8.9 [...] rate/Area] mL/min/1.73 m2 Normal >=59mL/min/ 1.73 m2 [facility] Chem S Glucose [Mass/Vol] 87 mg/dL Normal 55 - 199 mg/dL [facility] Remisol Potassium [Moles/Vol] 3.3 mmol/L Low 3.5 - 5.3 mmol/L [facility] Remisol Sodium [Moles/Vol] 131 mmol/L Low 135 - 145 mmol/L [facility] Remisol Troponin I.cardiac [Mass/Vol] 4.70 pg/mL Low 10.10 - 27.10 pg/mL [facility] Remisol Urea nitrogen [Mass/Vol] 7 mg/dL Normal 5 - 21 mg/dL [facility] Remisol Urea nitrogen/Creatinine [Mass ratio] 10 mg/mg Normal 10 - 20 [facility] Remisol CHEMISTRYOrdered By: Temi hayden on 09-05-2022 Natriuretic peptide B (Bld) [Mass/Vol] 8 pg/mL Normal 5 - 80 pg/mL [facility] HemeManSS COAGULATIONOrdered By: Yamile Li on 09-05-2022 aPTT Coag (PPP) [Time] 27.1 s Normal 25.1 - 36.5 second(s) [facility] Auto Coag INR Coag (PPP) [Relative time] 0.9 {INR} Invalid Interpretation Code [facility] Auto Coag PT Coag (PPP) [Time] 10.3 s Normal 9.4 - 1 2.5 second(s) [facility] Auto Coag Consent for Treatmenton 08-16 Consent for Treatment [id number]#1.00CD:12 7 Normal [facility] ED Note-Nursingon 09-05-2022 ED Note-Nursing Normal [facility] ED Note-Physicianon 09-05-20 ED Note-Physician Normal [facility] Comment on above: Result Comment: Elec tronically Signed By: Gopi Rodriguez DO\brandi\Date and Time Signed: 09/05/22 21:46 EST Group B Strep by PCRon 08-16 Group B Strep colonization by PCR Negative Normal Negative [facility] Comment on above: Performed By: #### 4 [id number] ####[facility] [address] [place] [address] HEMATOLOGYOrdered By: SYSTEM SYSTEM on 09-05-2022 Basophils/100 [...] NEG Ctl Pass (09/05/22 8:22 PM) Normal [facility] Rapid COV Int POS Ctl Pass (09/05/22 8:22 PM) Normal [facility] SARS-CoV+SARS-CoV-2 (COVID-19) Ag IA.rapid Ql (Resp) Detected 2 *ABN* (09/05/22 8:22 PM) Invalid Interpretation Code Not Detected [facility] Comment on above: Result Comment: Resu lts Called To Berna Cook, RN/ER By AGNIESZKA And Read Back For Confirmation On 09/05/2022 21:14:20 EST Results Verified By Repeat Analysis PT & PTTon 09-05-2022 aPTT Coag (PPP) [Time] 27.1 second(s) Normal 25.1-36.5 [facility] Comment on above: Result Comment: Para meter [...] the same coagulation reagent and instrumentation as [facility]. Currently there are no coagulation studies available worldwide for children to 14 days, and no normal ranges. Heparin therapeutic range (represented by Anti-Factor Xa activity of 0.2 - 0.4 U/mL) corresponds to PTT of 56.6 - 109.0 sec. Performed By: #### 2 085839, 06520903, 28611684, 6531093, 30563959, 16252979, 8644813 ####[facility] [address] [place] [address] INR Coag (PPP) [Relative time] 0.9 {INR} Invalid Interpretation Code [facility] Comment on above: Result Comment: INR results are specifically intended to assess patients stabilized on long-term Anticoagulation therapy suggested INR?s ?Less Intensive Anticoagulation? 2.0 ? 3.0Conventional Range 3.0 ? 4.5 Performed By: #### 2 592662, 71751373, 43283176, 7574116, 08882890, 23471224, 7997014 ####[facility] [address] [place] [address] PT Coag (PPP) [Time] 10.3 second(s) Normal 9.4-12.5 [facility] Comment on above: Result Comment: 15 d [...] the same coagulation reagent and instrumentation as [facility]. Currently there are no coagulation studies available worldwide for children to 14 days, and no normal ranges. Performed By: #### 2 825044, 66945020, 05128001, 2861971, 40550742, 69734065, 3234928 ####[facility] [address] [place] [address] Rapid COVID Antigen ([facility])on 09-05-2022 Rapid COV Int NEG Ctl Pass Normal [facility] Comment on above: Performed By: #### 2 [id number] ####[facility] [address] [place] [address] Rapid COV Int POS Ctl Pass Normal [facility] Comment on above: Performed By: #### 2 [id number] ####[address] [place] [address] SARS-CoV+SARS-CoV-2 (COVID-19) Ag IA.rapid Ql (Resp) Detected Abnormal Not Detected [facility] Comment on above: Result Comment: Resu lts Called To Berna Cook RN/ER By AGNIESZKA And Read Back For Confirmation On 09/05/2022 21:14:20 ESTResults Verified By Repeat AnalysisThe [email or web address]? System for Rapid Detection of SARS-CoV-2 is [...] or revoked sooner. Performed By: #### 2 [id number] ####[place] [address] ADMITTED TO INTENSIVE CARE UNIT FOR CONDITION OF INTEREST:FIND:PT: NO Normal [facility] Comment on above: Performed By: #### 2 [id number] ####[place] [address] EMPLOYED IN A HEALTHCARE SETTING:FIND:PT: NO Normal [facility] Comment on above: Performed By: #### 2 [id number] ####[place] [address] FIRST TEST FOR CONDITION OF INTEREST:FIND:PT: YES Normal [facility] Comment on above: Performed By: #### 2 [id number] ####[place] [address] HAS SYMPTOMS RELATED TO CONDITION OF INTEREST:FIND:PT: YES Normal [facility] Comment on above: Performed By: #### 2 [id number] ####[place] [address] HOSPITALIZED FOR CONDITION OF INTEREST:FIND:PT: NO Normal [facility] Comment on above: Performed By: #### 2 [id number] ####[place] [address] STATUS:FIND:PT: NO Normal [facility] Comment on above: Performed By: #### 2 [id number] ####[address] [address] RESIDES IN A CONGREGATE CARE SETTING:FIND:PT: NO Normal [facility] Comment on above: Performed By: #### 2 [id number] ####[address] [place] [address] Troponin 0 Hr.on 09-05-2022 Troponin I.cardiac [Mass/Vol] 4.70 pg/mL Low 10.10-27.10 [facility] Comment on above: Result Comment: The 95% CI (Confidence Interval) PPV (Positive Predictive Value) for myocardial infarction in females is 38 pg/mL, in males 51 pg/mL. The results should be used in conjunction with clinical conditions of myocardial infarction.(Access High Sensitivity Troponin I Instructions For Use, [place], May 2018) Performed By: #### 2 315518, 91275335, 68438121, 1048935, 67166260, 07749335, 1719544 ####[address] [place] [address] eGFRon 09-05-2022 GFR/1.73 sq M.predicted among blacks MDRD (S/P/Bld) [Vol rate/Area] mL/min/{1.73_m2} Normal >=59 [facility] Comment on above: Order Comment: Order added by Discern Expert. Result Comment: eGFR is race adjusted. AA=. Performed By: #### 2 804582, 09347151, 77282792, 8646857, 20684717, 52766920, 5189032 ####[facility] [address] [place] [address] GFR/1.73 sq M.predicted among non-blacks MDRD (S/P/Bld) [Vol rate/Area] mL/min/{1.73_m2} Normal >=59 [facility] Comment on above: Order Comment: Order added by Discern Expert. Result Comment: Open [employer] Spinning Operator lucy kidney disease could be indicated at eGFR's of less than 60 mL/min/1.73m2. Kidney failure is indicated at less than 15 mL/min/1.73m2. Performed By: #### 2 965969, 04686202, 96426678, 7681824, 05408043, 15991531, 6760159 ####[address] [place] [address] Coding Summary.on 09-04-2022 Coding Summary. Normal [facility] Nursing Assessmenton 022 Nursing Assessment [id number]#1.00CD:1 27 Normal [facility] Physician Orderon 09-04-2022 Physician Order [id number]#1.00CD:1 Normal [facility] ABO/Rhon 08-31-2022 ABO/Rh Positive Invalid Interpretation Code [facility] Comment on above: Performed By: #### 1 0952578, 2353493, 65512211, 10567062 ####[address] [address] ABO/Rh History Checkon 08-31 ABO/Rh History Check Verified Hx Blood Type Normal [facility] Comment on above: Performed By: #### 1 1646216, 5967664, 40351444, 85612997 ####[address] [address] ABSCon 08-31-2022 ABSC Gel Interp Negative Normal [facility] Comment on above: Performed By: #### 1 7245626, 5925738, 89128997, 51990341 ####[address] [place] [address] BUNon 08-31-2022 Urea nitrogen [Mass/Vol] 8 mg/dL Normal 03-04 [facility] Comment on above: Performed By: #### 2 533932, 4032853, 64494872, 8500658, 69446591, 1956190, 7185981, 5076615, 3049377, 0827662, 98886109 ####[address] [address] Blood Bank ID#on 08-31-2022 BBID# [id number] Invalid Interpretation Code [facility] Comment on above: Performed By: #### 1 0195424, 5290208, 61948926, 92567844 ####[facility] [address] [place] [address] CBC w/Indiceson 08-31-2022 Erythrocyte distribution width (RBC) [Ratio] 12.9 % Normal 10.9-14.2 [facility] Comment on above: Performed By: #### 2 295909, 7237758, 89581164, 2837324, 34227769, 8990434, 6911617, 7162813, 3069404, 2947686, 72610208 ####[facility] [address] [place] [address] Hematocrit (Bld) [Volume fraction] 35.0 % Normal 34.0-46.0 [facility] Comment on above: Performed By: #### 2 998048, 3814826, 01764810, 5904875, 20931386, 8257805, 8782432, 2920337, 8943874, 5657488, 56659864 ####[facility] [address] [place] [address] Hemoglobin (Bld) [Mass/Vol] 12.0 g/dL Normal 12.0-16.0 [facility] Comment on above: Performed By: #### 2 252386, 7858723, 74795439, 6939520, 05181131, 3221916, 5325375, 4809876, 8432198, 8990627, 80105770 ####[facility] [address] [place] [address] MCH (RBC) [Entitic mass] 30.7 pg Normal 27.0-34.0 [facility] Comment on above: Performed By: #### 2 131788, 6652230, 69107432, 1570693, 97385049, 3643618, 8189599, 6457315, 3805174, 8982441, 25053951 ####[facility] [address] [place] [address] MCHC (RBC) [Mass/Vol] 34.4 g/dL Normal 31.4-36.0 [facility] Comment on above: Performed By: #### 2 032425, 5787950, 74259140, 0873216, 22446046, 8806921, 1402221, 7130827, 1242908, 3441855, 75271524 ####[facility] [address] [place] [address] MCV (RBC) [Entitic vol] 89.5 fL Normal 80.0-100.0 [facility] Comment on above: Performed By: #### 2 374781, 0190390, 87175886, 6818127, 22232479, 9296894, 2850990, 1737995, 2410148, 6716821, 60124124 ####[facility] [address] [place] [address] Platelet mean volume (Bld) [Entitic vol] 9.8 fL Normal 6.4-10.8 [facility] Comment on above: Performed By: #### 2 836040, 1874889, 65920851, 6193395, 69036278, 1759035, 8602040, 6893990, 0067709, 2833092, 86420746 ####[facility] [address] [place] [address] Platelets (Bld) [#/Vol] 234.0 E9/L Normal 150.0-500.0 [facility] Comment on above: Performed By: #### 2 211332, 8341306, 87648284, 1383855, 81249672, 6386228, 4869338, 1811272, 7115425, 7722606, 12123599 ####[facility] [address] [place] [address] RBC (Bld) [#/Vol] 3.9 E12/L Low 4.3-5.9 [facility] Comment on above: Performed By: #### 2 521985, 1189377, 26832080, 8894563, 38595624, 3552030, 2198782, 5300663, 6014867, 2651398, 46506212 ####[facility] [address] [place] [address] WBC corrected for nucl RBC Auto (Bld) [#/Vol] 12.6 E9/L High 4.0-11.0 [facility] Comment on above: Performed By: #### 2 734041, 4057745, 87043497, 0839909, 09724875, 2888242, 4468913, 7638030, 3091554, 1336910, 18920465 ####[address] [place] [address] Creatinineon 08-31-2022 Creatinine [Mass/Vol] 0.7 mg/dL Normal 0.5-1.3 [facility] Comment on above: Performed By: #### 2 064506, 0821041, 57379778, 9379377, 22192419, 5496528, 5498999, 6243504, 6926381, 5024779, 15528111 ####[address] [address] Discharge Instructionson Discharge Instructions [id number]#1.00CD:12 7 Normal [facility] Ethanolon 08-31-2022 Ethanol [Mass/Vol] mg/dL Normal <=7 [facility] Comment on above: Performed By: #### 2 380909 ####[address] [place] [address] FSPon 08-31-2022 Fibrin+Fibrinogen fragments (S) [Mass/Vol] <10 Normal <10 [facility] Comment on above: Performed By: #### 2 072829, 9895389, 19045459, 5515453, 07600487, 9004765, 5772959, 5561087, 3984155, 6981069, 86652349 ####[address] [place] [address] Stainon 08-31-2022 FMHV 0 mL Invalid Interpretation Code [facility] Comment on above: Performed By: #### 2 865206, 8753322, 10769664, 6980075, 48182304, 5649592, 1386643, 1216995, 3515447, 9506564, 72241638 ####[facility] [address] [place] [address] Negative Control Negative Normal [facility] Comment on above: Performed By: #### 2 763925, 2222520, 00055771, 8654690, 56206339, 6616996, 1344064, 5308629, 8251543, 6686217, 24404166 ####[facility] [address] [place] [address] Fibrinogenon 08-31-2022 Fibrinogen Coag (PPP) [Mass/Vol] 406 mg/dL High 200-393 [facility] Comment on above: Performed By: #### 2 665743, 6018901, 69035728, 9924719, 30825645, 4985186, 8324903, 8254817, 3110547, 6872211, 65929072 ####[facility] [address] [place] [address] Hep Func Panelon 08-31-2022 Bilirubin.indirect [Mass or moles/Vol] UTC Abnormal 0.1-0.9 [facility] Comment on above: Result Comment: Resu lt verified by Discern Rule. Performed result UTC (Unable to Calculate) was sent as an Alpha code due the inability to calculate a valid numeric value. Performed By: #### 2 575434, 0364014, 40830472, 4167285, 91237649, 6946317, 1191414, 6384475, 3410690, 7264382, 42320526 ####[facility] [address] [place] [address] Albumin [Mass/Vol] 2.8 g/dL Low 3.3-5.0 [facility] Comment on above: Performed By: #### 2 038728, 7526516, 06455978, 7766798, 73328152, 1248185, 4761433, 3794830, 8779954, 0677479, 87441597 ####[facility] [address] [place] [address] Albumin/Globulin (S) [Mass conc ratio] 0.7 Low 1.1-2.2 [facility] Comment on above: Performed By: #### 2 560214, 5183317, 93405368, 6403946, 84241707, 8420188, 8489201, 8078822, 6630630, 8739743, 51241591 ####[address] [place] [address] ALP [Catalytic activity/Vol] 80 Int._Unit/L Normal 21-98 [facility] Comment on above: Performed By: #### 2 553846, 9132250, 19469233, 2766347, 35643863, 0024749, 1570129, 7580510, 3257115, 9438298, 20256828 ####[address] [place] [address] ALT No additional P-5'-P [Catalytic activity/Vol] 10 Int._Unit/L Normal 6-46 [facility] Comment on above: Performed By: #### 2 717280, 7274414, 79169670, 3376295, 35876685, 5099188, 5078182, 7313396, 7581695, 3471201, 18411062 ####[facility] [address] [place] [address] AST [Catalytic activity/Vol] 16 Int._Unit/L Normal 5-43 [facility] Comment on above: Performed By: #### 2 923688, 4326034, 82765339, 9641081, 26805243, 1307149, 8801135, 6511657, 4937379, 1630150, 71984053 ####[address] [place] [address] Bilirubin [Mass/Vol] 0.1 mg/dL Normal 0.0-1.1 [facility] Comment on above: Performed By: #### 2 030614, 9775136, 60398094, 0382715, 52321569, 9181167, 7721695, 7748793, 0621676, 2437497, 21003785 ####[facility] [address] [place] [address] Bilirubin.direct [Mass/Vol] mg/dL Normal 0.1-0.4 [facility] Comment on above: Performed By: #### 2 639293, 6507650, 94608391, 9621842, 47169460, 0433682, 2669513, 9944852, 9286738, 4495990, 65833637 ####[facility] [address] [place] [address] Globulin (S) [Mass/Vol] 3.8 g/dL Normal 1.4-4.0 [facility] Comment on above: Performed By: #### 2 669620, 7965231, 56155685, 5020376, 79687617, 0769874, 2010818, 3760103, 2895877, 2480656, 74302108 ####[facility] [address] [place] [address] Protein [Mass/Vol] 6.6 g/dL Normal 6.0-7.8 [facility] Comment on above: Performed By: #### 2 227837, 6505691, 92629871, 7471156, 29099050, 4661657, 0564521, 1849802, 5582905, 0497748, 91697550 ####[facility] [address] [place] [address] Inpatient Clinical Summaryon 08-31-2022 Inpatient Clinical Summary Normal [facility] Inpatient Patient Summaryon 08-31-2022 Inpatient Patient Summary Normal [facility] Lyteson 08-31-2022 Anion gap [Moles/Vol] 13 mmol/L Normal 6-16 [facility] Comment on above: Performed By: #### 2 940170, 5682768, 35629482, 2415643, 47188229, 7788951, 9894475, 9495693, 4899310, 6503090, 24066320 ####[facility] [address] [place] [address] Chloride [Moles/Vol] 104 mmol/L Normal 101-111 [facility] Comment on above: Performed By: #### 2 253720, 2634263, 72250708, 3385939, 11935447, 7407522, 3486670, 7616083, 5842883, 6975229, 92813351 ####[facility] [address] [place] [address] CO2 [Moles/Vol] 22 mmol/L Normal 21-31 [facility] Comment on above: Performed By: #### 2 037773, 4154903, 39869216, 9501442, 20592160, 0866922, 6809867, 9990090, 1964221, 4388817, 53339416 ####[facility] [address] [place] [address] Potassium [Moles/Vol] 3.5 mmol/L Normal 3.5-5.3 [facility] Comment on above: Performed By: #### 2 813190, 3234130, 70312023, 2329675, 70837682, 5418284, 6597980, 9816625, 8773879, 8107480, 65951194 ####[facility] [address] [place] [address] Sodium [Moles/Vol] 135 mmol/L Normal 135-145 [facility] Comment on above: Performed By: #### 2 446217, 5224457, 85772780, 4945999, 09480423, 9688796, 6783927, 1578220, 5634770, 6140429, 16840712 ####[address] [place] [address] Nursing Assessmenton 022 Nursing Assessment [id number]#[id number]:12 7 Normal [facility] PT & PTTon 08-31-2022 aPTT Coag (PPP) [Time] 26.3 second(s) Normal 25.1-36.5 [facility] Comment on above: Result Comment: Para meter [...] the same coagulation reagent and instrumentation as [facility]. Currently there are no coagulation studies available worldwide for children to 14 days, and no normal ranges. Heparin therapeutic range (represented by Anti-Factor Xa activity of 0.2 - 0.4 U/mL) corresponds to PTT of 56.6 - 109.0 sec. Performed By: #### 2 687685, 7688828, 05362929, 3643257, 53687458, 4109561, 7490814, 2753098, 9349803, 9176775, 76758906 ####[facility] [address] [place] [address] INR Coag (PPP) [Relative time] 0.9 {INR} Invalid Interpretation Code [facility] Comment on above: Result Comment: INR results are specifically intended to assess patients stabilized on long-term Anticoagulation therapy suggested INR?s ?Less Intensive Anticoagulation? 2.0 ? 3.0Conventional Range 3.0 ? 4.5 Performed By: #### 2 658618, 3828187, 71803111, 4194810, 63536649, 4460129, 3531766, 3561618, 5988157, 4237438, 55786736 ####[facility] [address] [place] [address] PT Coag (PPP) [Time] 10.2 second(s) Normal 9.4-12.5 [facility] Comment on above: Result Comment: 15 d [...] the same coagulation reagent and instrumentation as [facility]. Currently there are no coagulation studies available worldwide for children to 14 days, and no normal ranges. Performed By: #### 2 632023, 8559857, 20020354, 0552354, 68632774, 8798368, 7932632, 6138169, 2094321, 3238644, 65725155 ####[facility] [address] [place] [address] U Drug Screenon 08-31-2022 Amphetamines Screen method >1000 ng/mL Ql (U) Negative Normal Negative [facility] Comment on above: Result Comment: Nega tive Cutoff: <1000 ng/mL Performed By: #### 2 721336, 84991145 ####[facility] [address] [place] [address] Barbiturates Screen Ql (U) Negative Normal Negative [facility] Comment on above: Result Comment: Nega tive Cutoff: <200 ng/mL Performed By: #### 2 592885, 72933049 ####[facility] [address] [place] [address] Benzodiazepines Ql (U) Negative Normal Negative [facility] [facility] Comment on above: Result Comment: Nega tive Cutoff: <200 ng/mL Performed By: #### 2 [id number], [id number] ####[facility] [address] [place] [address] Cocaine Ql (U) Negative Normal Negative [facility] Comment on above: Result Comment: Nega tive Cutoff: <300 ng/mL Performed By: #### 2 [id number], [id number] ####[facility] [address] [place] [address] Opiates Screen Ql (U) Negative Normal Negative [facility] Comment on above: Result Comment: Nega tive Cutoff: <300 ng/mL Performed By: #### 2 635159, [id number] ####[facility] [address] [place] [address] Phencyclidine Screen method >25 ng/mL Ql (U) Negative Normal Negative [facility] Comment on above: Result Comment: Nega tive Cutoff: <25 ng/mLThese drug screen results are to be used for medical (i.e., treatment) purposes only. Unconfirmed drug screening results must not be used for non-medical purposes (e.g., employment testing, legal testing). Performed By: #### 2 059298, [id number] ####[facility] [address] [place] [address] Tetrahydrocannabinol Screen method >50 ng/mL Ql (U) Negative Normal Negative [facility] Comment on above: Result Comment: Nega tive Cutoff: <50 ng/mL Performed By: #### 2 355277, [id number] ####[facility] [address] [place] [address] UA With Cult Reflexon 2021 Bacteria LM Ql (Urine sed) TRACE Normal Trace [facility] Comment on above: Performed By: #### 2 875900, [id number] ####[facility] [address] [place] [address] Bilirubin Ql (U) Negative Normal Negative [facility] Comment on above: Performed By: #### 2 270823, [id number] ####[facility] [address] [place] [address] Clarity (U) CLEAR Normal Clear [facility] Comment on above: Performed By: #### 2 603328, [id number] ####[facility] [address] [place] [address] Color (U) YELLOW Normal Yellow [facility] Comment on above: Performed By: #### 2 382124, [id number] ####[facility] [address] [place] [address] Epithelial cells.squamous LM.HPF (Urine sed) [#/Area] 0-2 Normal 0-2 [facility] Comment on above: Performed By: #### 2 437641, [id number] ####[facility] [address] [place] [address] Glucose Test strip (U) [Mass/Vol] Negative Normal Negative [facility] Comment on above: Performed By: #### 2 136796, [id number] ####[facility] [address] [place] [address] Hemoglobin Ql (U) Negative Normal Negative [facility] Comment on above: Performed By: #### 2 736125, [id number] ####[facility] [address] [place] [address] Ketones (U) [Mass/Vol] Negative Normal Negative Fi [facility] Comment on above: Performed By: #### 2 244205, [id number] ####[facility] [address] [place] [address] Randlett.plasma/Randlett .RBC (Bld) [Mass ratio] 0-3 Normal 0-3 [facility] Comment on above: Performed By: #### 2 649479, [id number] ####[facility] [address] [place] [address] Nitrite Ql (U) Negative Normal Negative [facility] Comment on above: Performed By: #### 2 007459, [id number] ####[facility] [address] [place] [address] pH (U) 6.0 [pH] Invalid Interpretation Code 5.0-9.0 [facility] Comment on above: Performed By: #### 2 091882, [id number] ####[facility] [address] [place] [address] Protein (U) [Mass/Vol] Negative Normal Negative Fi [facility] Comment on above: Performed By: #### 2 290050, [id number] ####[address] [address] Specific gravity (U) [Rel density] 1.010 Invalid Interpretation Code 1.005-1.030 [facility] Comment on above: Performed By: #### 2 132373, [id number] ####[place] [id number] Type of Urine collection method Clean Catch Normal [facility] Comment on above: Performed By: #### 2 774701, [id number] ####[place] 0[address]157 Urobilinogen Qn (U) 0.2 {Rola'U}/dL Normal 0.0-1.0 [facility] Comment on above: Performed By: #### 2 098829, [id number] ####[place] 0453157 WBC Auto Ql (U) Negative Normal Negative [facility] Comment on above: Performed By: #### 2 302085, [id number] ####[place] 0453157 WBC LM.HPF (Urine sed) [#/Area] 0-5 Normal 0-5 [facility] Comment on above: Performed By: #### 2 342768, [id number] ####[address] [address] Uric Acidon 08-31-2022 Urate [Mass/Vol] 5.0 mg/dL Normal 2.2-7.4 [facility] Comment on above: Performed By: #### 2 175621, 3804350, [id number], 7245971, 60440827, 5644966, 6019427, 2922427, 2741463, 2484805, [id number] ####[facility] [address] [place] [address] eGFRon 08-31-2022 GFR/1.73 sq M.predicted among blacks MDRD (S/P/Bld) [Vol rate/Area] mL/min/{1.73_m2} Normal >=59 [facility] Comment on above: Order Comment: Order added by Discern Expert. Result Comment: eGFR is race adjusted. AA=. Performed By: #### 2 850608, 1346145, 06810549, 4988761, 96766365, 0851686, 6711144, 7621657, 4179660, 5914702, 77631294 ####[facility] [address] [place] [address] GFR/1.73 sq M.predicted among non-blacks MDRD (S/P/Bld) [Vol rate/Area] mL/min/{1.73_m2} Normal >=59 [facility] Comment on above: Order Comment: Order added by Discern Expert. Result Comment: Open End Spinning Operator lucy kidney disease could be indicated at eGFR's of less than 60 mL/min/1.73m2. Kidney failure is indicated at less than 15 mL/min/1.73m2. Performed By: #### 2 015013, 8199705, 43615059, 6824410, 19459464, 6400391, 2110380, 0333838, 6602249, 7864874, [id number] ####[facility] [address] [place] [address] BLOOD BANKOrdered By: Naldo Li on 08-30-2022 ABO/Rh Interp Positive Invalid Interpretation Code FT BB Subsection ABSC Gel Interp Negative (08/30/22 11:51 PM) Normal FT BB Subsection FMHV 0 mL Invalid Interpretation Code [facility] Man Sero CHEMISTRYOrdered By: SYSTEM SYSTEM on [...] Consent for Treatmenton 08-15 Consent for Treatment [id number] Normal [facility] HEMATOLOGYOrdered By: Naldo Li on 08-30-2022 Erythrocyte [...] PM) Normal Negative [facility] UA Auto SS Randlett.plasma/Randlett .RBC (Bld) [Mass ratio] 0-3 /HPF Normal [...] [facility] UA Auto SS Urobilinogen Qn (U) 0.7306189 {Rola'U}/dL Normal 0.0 - 1.0 EU/dL [facility] UA Auto SS WBC Auto Ql (U) Negative (08/30/22 9:45 PM) Normal Negative [facility] UA Auto SS WBC LM.HPF (Urine sed) [#/Area] 0-5 /HPF Normal 0-5/HPF [facility] UA Auto SS Coding Summary.on 08-28-2022 Coding Summary. Normal [facility] BLOOD BANKOrdered By: Janet Reyes on 08-22-2022 ABO/Rh Interp Positive Invalid Interpretation Code FT BB Subsection ABSC Gel Interp Negative (08/22/22 4:03 PM) Normal [facility] BB Subsection FMHV 0 mL Invalid Interpretation Code [facility] Man Sero CHEMISTRYOrdered By: SYSTEM SYSTEM on [...] - 0.9 mg/dL FT Remisol Chloride [Moles/Vol] 102 mmol/L Normal 101 - 1 11 mmol/L [facility] CO2 [Moles/Vol] 22 mmol/L Normal 21 - 31 mmol/L [facility]isol Creatinine [Mass/Vol] 0.6 mg/dL Normal 0.5 - 1.3 mg/dL [facility] Remisol GFR/1.73 sq M.predicted among blacks MDRD (S/P/Bld) [Vol rate/Area] mL/min/1.73 m2 Normal >=59mL/min/ 1.73 m2 [facility] Chem S GFR/1.73 sq M.predicted among non-blacks MDRD (S/P/Bld) [Vol rate/Area] mL/min/1.73 m2 Normal >=59mL/min/ 1.73 m2 [facility] Chem S Globulin (S) [Mass/Vol] 3.7 g/dL Normal 1.4 - 4.0 gm/dL FT [...] PM) Normal Negative [facility] UA Auto SS Randlett.plasma/Randlett .RBC (Bld) [Mass ratio] 0-3 /HPF Normal [...] [facility] UA Auto SS Urobilinogen Qn (U) 0.1188673 {Rola'U}/dL Normal 0.0 - 1.0 EU/dL [facility] [...] AM) Normal Negative [facility] UA Auto SS Randlett.plasma/Randlett .RBC (Bld) [Mass ratio] 0-3 /HPF Normal [...] Desc Clean Catch (08/18/22 4:08 AM) Normal [facility] UA Auto SS Urobilinogen Qn (U) 0.8391000 {Rola'U}/dL Normal 0.0 - 1.0 EU/dL [facility] UA Auto SS WBC Auto Ql (U) 2+ *ABN* (08/18/22 4:08 AM) Invalid Interpretation Code Negative [facility] UA Auto SS WBC LM.HPF (Urine sed) [#/Area] 6-15 /HPF Invalid Interpretation Code 0-5/HPF [facility] UA Auto SS BLOOD BANKOrdered By: Tom Avelar on 08-13-2022 ABO/Rh Interp Positive Invalid Interpretation Code [facility] BB Subsection ABSC Gel Interp Negative (08/13/22 6:26 PM) Normal [facility] BB Subsection FMHV 0 mL Invalid Interpretation Code [facility] Man Sero CHEMISTRYOrdered By: SYSTEM SYSTEM on [...] Interpretation Code Negative [facility] UA Auto SS Randlett.plasma/Randlett .RBC (Bld) [Mass ratio] 0-3 /HPF Normal [...] [facility] UA Auto SS Urobilinogen Qn (U) 0.7637223 {Rola'U}/dL Normal 0.0 - 1.0 EU/dL [facility] [...] AM) Normal Negative [facility] UA Auto SS Randlett.plasma/Randlett .RBC (Bld) [Mass ratio] 0-3 /HPF Normal [...] [facility] UA Auto SS Urobilinogen Qn (U) 0.9292298 {Rola'U}/dL Normal 0.0 - 1.0 EU/dL [facility] [...] Detected (07/17/22 9:20 AM) Normal Not Detected FT Man Sero URINALYSISOrdered By: Tonja pablo on [...] [Mass/Vol] Negative (07/17/22 9:25 AM) Normal Negative [facility] UA Auto SS Hemoglobin Ql (U) Negative (07/17/22 9:25 AM) Normal Negative [facility] UA Auto SS Ketones (U) [Mass/Vol] Negative (07/17/22 9:25 AM) Normal Negative [facility] UA Auto SS Randlett.plasma/Randlett .RBC (Bld) [Mass ratio] 0-3 /HPF Normal 0-3/HPF [facility] UA Auto SS Nitrite Ql (U) Negative (07/17/22 9:25 AM) Normal Negative [facility] UA Auto SS pH (U) 7.0 *NA* (07/17/22 9:25 AM) Invalid Interpretation Code 5.0 - 9.0 [facility] UA Auto SS Protein (U) [Mass/Vol] Negative (07/17/22 9:25 AM) Normal Negative [facility] UA Auto SS Specific gravity (U) [Rel density] <=1.005 *NA* (07/17/22 9:25 AM) Invalid Interpretation Code 1.005 - 1.030 [facility] UA Auto SS UA Spec Desc Clean Catch (07/17/22 9:25 AM) Normal [facility] UA Auto SS Urobilinogen Qn (U) 0.7101670 {Rola'U}/dL Normal 0.0 - 1.0 EU/dL [facility] UA Auto SS WBC Auto Ql (U) Negative (07/17/22 9:25 AM) Normal Negative [facility] UA Auto SS WBC LM.HPF (Urine sed) [#/Area] 0-5 /HPF Normal 0-5/HPF [facility] UA Auto SS CHEMISTRYOrdered By: SYSTEM SYSTEM on 06-28-2022 Glucose 1 Hr post 50 g glucose PO [Mass/Vol] 93 mg/dL Normal 55 - 140 mg/dL [facility] Remisol HEMATOLOGYOrdered By: Keila Ring on 06-28-2022 Hematocrit (Bld) [Volume fraction] 35.4 % Normal 34.0 - 46.0 % [facility] HemeAutoSS Hemoglobin (Bld) [Mass/Vol] 12.1 g/dL Normal 12.0 - 16.0 gm/dL [facility] HemeAutoSS BLOOD BANKOrdered By: Jeanette Castle on 06-19-2022 ABO/Rh Interp Positive Invalid Interpretation Code [facility] BB Subsection ABSC Gel Interp Negative (06/19/22 12:15 AM) Normal [facility] BB Subsection FMHV 0 mL Invalid Interpretation Code [facility] Man Sero CHEMISTRYOrdered By: SYSTEM SYSTEM on [...] PM) Normal Negative [facility] UA Auto SS Randlett.plasma/Randlett .RBC (Bld) [Mass ratio] 0-3 /HPF Normal [...] [facility] UA Auto SS Urobilinogen Qn (U) 0.6164108 {Rola'U}/dL Normal 0.0 - 1.0 EU/dL [facility] [...] PM) Normal Negative [facility] UA Auto SS Randlett.plasma/Randlett .RBC (Bld) [Mass ratio] 0-3 /HPF Normal 0-3/HPF [facility] UA Auto SS Mucus Ql (Urine sed) Trace (05/01/22 5:20 PM) Normal [facility] UA Auto SS Nitrite Ql (U) Negative (05/01/22 5:20 PM) Normal Negative [facility] UA Auto SS pH (U) 5.5 *NA* (05/01/22 5:20 PM) Invalid Interpretation Code 5.0 - 9.0 [facility] UA Auto SS Protein (U) [Mass/Vol] Trace *ABN* (05/01/22 5:20 PM) Invalid Interpretation Code Negative [facility] UA Auto SS Specific gravity (U) [Rel density] >=1.030 *NA* (05/01/22 5:20 PM) Invalid Interpretation Code 1.005 - 1.030 [facility] UA Auto SS UA Spec Desc Random Urine (05/01/22 5:20 PM) Normal [facility] UA Auto SS Urobilinogen Qn (U) 1.7466882 {Rola'U}/dL Normal 0.0 - 1.0 EU/dL [facility] UA Auto SS WBC Auto Ql (U) Negative (05/01/22 5:20 PM) Normal Negative [facility] UA Auto SS WBC LM.HPF (Urine sed) [#/Area] 0-5 /HPF Normal 0-5/HPF [facility] UA Auto SS BLOOD BANKOrdered By: Shayy Medina on 04-02-2022 ABO/Rh Interp Positive Invalid Interpretation Code [facility] BB Subsection ABSC Gel Interp Negative (04/02/22 7:17 AM) Normal [facility] BB Subsection FMHV 0 mL Invalid Interpretation Code [facility] Man Sero CHEMISTRYOrdered By: SYSTEM SYSTEM on [...] m2 FT Chem S Globulin (S) [Mass/Vol] 3.0 g/dL [...] [Mass/Vol] Negative (04/02/22 6:05 AM) Normal Negative [facility] UA Auto SS Randlett.plasma/Randlett .RBC (Bld) [Mass ratio] 0-3 /HPF Normal 0-3/HPF [facility] UA Auto SS Nitrite Ql (U) Negative (04/02/22 6:05 AM) Normal Negative [facility] UA Auto SS pH (U) 6.5 *NA* (04/02/22 6:05 AM) Invalid Interpretation Code 5.0 - 9.0 [facility] UA Auto SS Protein (U) [Mass/Vol] Negative (04/02/22 6:05 AM) Normal Negative [facility] UA Auto SS Specific gravity (U) [Rel density] <=1.005 *NA* (04/02/22 6:05 AM) Invalid Interpretation Code 1.005 - 1.030 [facility] UA Auto SS UA Spec Desc Random Urine (04/02/22 6:05 AM) Normal [facility] UA Auto SS Urobilinogen Qn (U) 0.9531397 {Rola'U}/dL Normal 0.0 - 1.0 EU/dL FT [...] PM) Normal Negative [facility] UA Auto SS Randlett.plasma/Randlett .RBC (Bld) [Mass ratio] 0-3 /HPF Normal [...] [facility] UA Auto SS Urobilinogen Qn (U) 0.9629760 {Rola'U}/dL Normal 0.0 - 1.0 EU/dL [facility] [...] By: Stephanie Diana on 02-15-2022 Test Code 267572 Invalid Interpretation Code [facility] SendOutsSS Test Name IG PAP CTNG HPV Invalid Interpretation Code [facility] SendOutsSS [place] 05-05-2021 CNPN Telephone (GST[facility]) ----- SUSAN BRO ([id number]) 1995 F Date Time Provider Department 05/05/21 MARTHA WEBB During your visit today, we recorded the following information about you: Tucker Amairani Night Manager 05/05/2021 10:37 AM Signed Patient left [...] length of the test. When in got old of the department they said they went [...] diligent work on this patient Tucker Bales Night Manager 05/24/2021 2:23 PM Signed patient called and left a message today stating she needs to get this figured out she has not eaten in 3 days and cant even drink water now. Patient can be reached at [phone]- please read messages below for refresher Martha Webb MD 05/24/2021 4:30 PM Signed Please advise patient to go to ER for evaluation Tucker Wiseman 05/24/2021 4:35 PM Signed Had to leave a message for the patient, left the message to go to ER. Also returned the call to [facility] and spoke to Alejandra that patient needs to go to ER for evalution. 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 AT ONSET OF HEADACHE. MAY REPEAT AFTER 2 HOURS. DO NOT EXCEED 30 MG PER DAY. Problem List As Of Date: 05/05/2021 (None) Encounter Status:Closed by TUCKER LARA [facility]) ----- SUSAN BRO ([id number]) 1995 F Date Time Provider Department 04/07/21 MARTHA WEBB During your visit today, we recorded the following information about you: Tucker Amairani Night Manager 04/07/2021 12:31 PM Signed NM called [...] Visit Diagnosis:Nausea [R11.0] Order(s):NM GASTRIC EMPTYING SOLID [[id number]] Order #: [id number] FUTURE Prescriptions as of 04/07/2021 Sig: AMITRIPTYLINE 10 MG TABLET Take 1 tab at bed x 1 week, t* RIZATRIPTAN 10 MG DISINTEGRAT* Take 1 tablet by mouth as nee* Problem List As Of Date: 04/07/2021 (None) Encounter Status:Closed by MARTHA WEBB on 04/07/21 [facility] 04-04-[address] [facility] Telephone ([employer]) ----- SUSAN BRO ([id number]) 1995 F Date Time Provider Department 04/04/21 MARTHA WEBB During your visit today, we recorded the following information about you: Tucker Bales Night Manager 04/04/2021 1:40 PM Signed Patient called and is still waiting for you to place the order for her GES with ensure, she cant eat the eggs and toast Martha Webb MD 04/04/2021 4:48 PM Signed Let patient know I placed the order Tucker Bales Night Manager 04/05/2021 11:41 AM Signed Can you [...] Visit Diagnosis:Nausea [R11.0] Order(s):NM GASTRIC EMPTYING LIQUID [[id number]] Order #: [id number] FUTURE Prescriptions as of 04/04/2021 Sig: AMITRIPTYLINE 10 MG TABLET Take 1 tab at bed x 1 week, t* RIZATRIPTAN 10 MG DISINTEGRAT* Take 1 tablet by mouth as nee* Problem List As Of Date: 04/04/2021 (None) Encounter Status:Closed by MARTHA WEBB on 04/05/21 [facility] 04-01-2021 CNOV Office Visit ([facility]MNS2 ) ----- SUSAN BRO ([id number]) 1995 F Date Time Provider Department 04/01/21 8:00 AM [facility] During your visit today, we recorded the [...] at least 3 months. These include all lktv-cuq-muadlnc medications, triptans, narcotics, and butalbital containing medications [...] There h (more content not included)... Normal [facility] [place] 03-22-2021 ELISE Telephone ([employer]) ----- SUSAN BRO ([id number]) 1995 F Date Time Provider Department 03/22/21 MARTHA WEBB During your visit today, we recorded the following information about you: Tucker Bales Night Manager 03/22/2021 2:28 PM Signed Received: Today MD Eusebia Banks [facility] Jon Clinical Pool; Tucker Amairani Night Manager Let patient know esophagram was normal Next step is gastric emptying study I placed order for gastric emptying study Tucker Bales Night Manager 03/22/2021 2:28 PM Signed Pt is notified, will schedule the GES Allergies As of Date: 03/22/2021 Noted Allergy Reaction PENICILLINS 03/10/2021 2 - Rash Date Reviewed: 03/10/2021 Reviewed by: Matrha Webb MD - Fully Assessed Reason for Visit: Results [95] Problem List As Of Date: 03/22/2021 (None) Encounter Status:Closed by TUCKER LARA on 03/22/21 Normal [facility] XR ESOPHAGRAMon 03-17-2021 XR ESOPHAGRAM * [...] symptoms. Other Findings: None. IMPRESSION: Normal esophagram. Pilot Can Router: LUCITA Transcribe Date/Time: Mar 17 2021 11:15A Dictated by : CRISTÓBAL SALINAS DO This examination was interpreted and the report reviewed and electronically signed by: CRISTÓBAL SALINAS DO on Mar 17 2021 11:18AM EST [id number] [facility] 03-10-2021 CNOV Office Visit (GSTCON ) ----- SUSAN BRO ([id number]) 1995 F Date Time Provider Department 03/10/21 11:15 AM MARTHA WEBB During your visit today, we recorded the following information about you: Pulse Blood pressure Weight Height 69/minute 108/76 73 kg 1.626 m Martha Webb MD 03/10/2021 12:03 PM Signed This note was created using Vimodiriter. Subjective Susan Bro is a 25 year [...] COMMENT: Un (more content not included)... [facility] [facility] Telephone (GAST[facility]) ----- SUSAN BRO ([id number]) 1995 F Date Time Provider Department 03/10/21 MARTHA WEBB During your visit today, we recorded the following information about you: Don Trevino Night Manager 03/10/2021 1:24 PM Signed Failed fax in [employer] from 03/10/2021 regarding this patient from Dr. Webb. Faxed manually to [phone]. Scanned fax confirmation/documents into [employer]. Don Trevino Night Manager Allergies As of Date: 03/10/2021 Noted Allergy Reaction PENICILLINS 03/10/2021 2 - Rash Date Reviewed: 03/10/2021 Reviewed by: Martha Webb MD - Fully Assessed Reason for Visit: Electronic Communication [890] Problem List As Of Date: 03/10/2021 (None) Encounter Status:Closed by DON DIAZ on 03/10/21 Normal [facility] CBC WITH AUTO DIFFERENTIALon 10-14-2020 Basophils (Bld) [#/Vol] 0.06 10*3/uL [facility] Basophils/100 WBC (Bld) 0.6 % [facility] Eosinophils (Bld) [#/Vol] 0.36 10*3/uL [facility] Eosinophils/100 WBC (Bld) 3.4 % [facility] Erythrocyte distribution width (RBC) [Entitic vol] 13.2 % 11.6 - 14.8 % [facility] Hematocrit (Bld) [Volume fraction] 43.2 % 36 - 46 % [facility] Hemoglobin (Bld) [Mass/Vol] 14.1 g/dL 12 - 16 g/dL [facility] Immature granulocytes (Bld) [#/Vol] 0.03 10*3/uL [facility] Immature granulocytes/100 WBC (Bld) 0.30 % [facility] Comment on above: The IG parameter is the percentage of metamyelocytes, myelocytes and promyelocytes. An immature granulocyte count (IG) of 1% or more suggests the possibility of infection, an IG count of 3% is very likely related to an infection. Interpretation and review of laboratory results Abnormal [facility] Lymphocytes (Bld) [#/Vol] 1.47 10*3/uL [facility] Lymphocytes/100 WBC (Bld) 13.8 % [facility] MCH (RBC) [Entitic mass] 29.6 pg 26 - 34 pg [facility] MCHC (RBC) [Mass/Vol] 32.6 g/dL 31 - 3 7 g/dL [facility] MCV (RBC) [Entitic vol] 90.6 fL 80 - 100 fL [facility] Monocytes (Bld) [#/Vol] 0.58 10*3/uL [facility] Monocytes/100 WBC (Bld) 5.5 % [facility] Neutrophils (Bld) [#/Vol] 8.12 10*3/uL High [facility] Neutrophils/100 WBC (Bld) 76.4 % [facility] Nucleated RBC (Bld) [#/Vol] 0.00 10*3/uL [facility] Nucleated RBC/100 WBC (Bld) [Ratio] 0.0 % [facility] Platelet mean volume (Bld) [Entitic vol] 10.3 fL 9.4 - 12.4 fL [facility] Platelets (Bld) [#/Vol] 251 10*3/uL [facility] RBC (Bld) [#/Vol] 4.77 10*6/uL [facility] ealt WBC (Bld) [#/Vol] 10.62 10*3/uL [facility] COVID-19/INFLUENZA A,B [facility] 10-14-2020 COVID-19/INFLUENZA A,B MOLECULAR SARS-COV-2 (SANA): Not [...] at the following links: For Healthcare Providers: https://www.fda.gov/media/168608/download For Patients: https://www.fda.gov/media/355308/download Performed By: #### L [id number] #### [facility] [address] [address] Raffy Yadav M.D. [id number] COVID-19/Influenza A,B [facility] 10-14-2020 Influenza A Not Detected Not Detected [facility] Influenza B Not Detected Not Detected [facility] Interpretation and review of laboratory results Normal [facility] SARS-CoV-2 Not Detected Not Detected [facility] This test was perfor med under [...] the following links: For Healthcare Providers: https://www.fda.gov/media /[id number]/download For Patients: https://www.fda.gov/media /092504/download [facility] CT HEAD OR BRAIN WITHOUT CON [...] orbits and paranasal sinuses are grossly unremarkable. [facility] 1. No acute intracra nial hemorrhage, focal edema or mass effect. Workstation ID: [id number] [facility] Interface, Rad In Fu ji Speechq - 10/14/2020 [...] edema or mass effect. Workstation ID: [id number] [facility] Chem 7on 10-14-2020 Anion gap [Moles/Vol] 8 mmol/L Low 10 - 2 0 mmol/L [facility] Chloride [Moles/Vol] 112 mmol/L High 98 - 10 8 mmol/L [facility] Creatinine [Mass/Vol] 0.78 mg/dL 0.40 - 1.10 [facility] GFR/1.73 sq M predicted among non-blacks MDRD (S/P/Bld) [Vol rate/Area] The eGFR should be used for monitoring renal function only and not for medication dosing. [facility] GFR/1.73 sq M.predicted CKD-EPI (S/P/Bld) [Vol rate/Area] 105 >=60 mL/min/1.73 m2 [facility] Glucose [Mass/Vol] 78 mg/dL 65 - 99 mg/dL [facility] HCO3 [Moles/Vol] 24 mmol/L 21 - 32 mmol/L [facility] Interpretation and review of laboratory results Abnormal [facility] Potassium [Moles/Vol] 4.5 mmol/L 3.5 - 5.1 mmol/L [facility] Comment on above: moderate hemolysis, result may be falsely increased. Sodium [Moles/Vol] 139 mmol/L 135 - 145 mmol/L [facility] Urea nitrogen [Mass/Vol] 5 mg/dL Low 8 - 25 mg/dL [facility] Urea nitrogen/Creatinine [Mass ratio] 6.4 mg/mg Low [facility] Otheron 10-14-2020 Extra Tube Hold for add-ons. [facility] Comment on above: Auto resulted. URINALYSISon 10-14-2020 Bacteria Auto Ql (U) None Seen None Se en /hpf [facility] Bilirubin Ql (U) Negative Negative [facility] Clarity Refractometry automated (U) Cloudy Abnormal Clear [facility] Color (U) Yellow Colorless, Yellow [facility] Epithelial cells.squamous Auto (Urine sed) [#/Area] 18 High [facility] Glucose Auto test strip (U) [Mass/Vol] Negative Negative mg/dL [facility] Hemoglobin Auto test strip Ql (U) Negative Negative [facility] Interpretation and review of laboratory results Abnormal [facility] Ketones (U) [Mass/Vol] Negative Negat juju mg/dL [facility] Leukocyte esterase Auto test strip Ql (U) Trace Abnormal Negative [facility] Mucus Auto (Urine sed) [#/Area] Many Abnormal None Seen, Rare /lpf [facility] Nitrite Auto test strip Ql (U) Negative Negative [facility] pH (U) 8.0 [pH] High [facility] Protein (U) [Mass/Vol] 30 Abnormal Negat juju mg/dL [facility] Comment on above: False positive resul ts may occur in urines with large amounts of hemoglobin, pH greater than 8.0, contrast medium, or disinfectants including ammonium compounds. RBC Auto (Urine sed) [#/Area] 3 [facility] Specific gravity (U) [Rel density] 1.028 High [facility] Urobilinogen (U) [Mass/Vol] 2.0 mg/dL Abnormal <2.0 [facility] WBC Auto (Urine sed) [#/Area] 3 [facility] Microscopic examinat ion is performed on all urinalysis samples and only positive findings are reported. The test for blood on the chemical analytic portion of urinalysis may also be positive due to hemoglobinuria and myoglobinuria and if red blood cells are present they are quantified by microscopic examination. [facility] hCG Urine, Qualitativeon HCG ( test) Ql (U) Negative Negative [facility] Interpretation and review of laboratory results Normal [facility] ABDOMEN, COMPLT ACUTE SERIES on 09-05-2020 ABDOMEN, COMPLT ACUTE SERIES Patient Name: SUSAN BRO STUDY: ABDOMEN, COMPLT ACUTE SERIES; 09/04/2020 11:54 pm INDICATION: constipation. COMPARISON: None. ACCESSION NUMBER(S): [id number] ORDERING CLINICIAN: BRAYDEN YANEZ TECHNIQUE: Abdomen supine [...] Electronically signed by: CANDACE AREVALO MD Normal [facility] BASIC METABOLIC PANELon 08-16 Anion gap [Moles/Vol] 12 mmol/L Normal 10 - [address] [facility] Comment on above: Performed By: #### B MP #### [address] [address] Calcium [Mass/Vol] 9.0 mg/dL Normal 8.6 - 10.3 [facility] Comment on above: Performed By: #### B MP #### [address] [address] Chloride [Moles/Vol] 105 mmol/L Normal 98 - 107 [facility] Comment on above: Performed By: #### B MP #### [address] [address] Creatinine [Mass/Vol] 0.90 mg/dL Normal 0.50 - 1.05 [facility] Comment on above: Performed By: #### B MP #### [address] [address] GFR- AM. >60 Normal >60 [facility] Comment on above: Result Comment: CALC ULATIONS OF ESTIMATED GFR ARE PERFORMED USING THE MDRD STUDY EQUATION FOR THE IDMS-TRACEABLE CREATININE METHODS. CLIN CHEM 2007;53:766-72 Performed By: #### B MP #### [address] [address] GFR-NON AM. >60 Normal >60 [facility] Comment on above: Performed By: #### B MP #### [address] [address] Glucose [Mass/Vol] 96 mg/dL Normal 74 - 99 [facility] Comment on above: Performed By: #### B MP #### [address] [address] HCO3 (Bld) [Moles/Vol] 25 mmol/L Normal 21 - 32 [facility] Comment on above: Performed By: #### B MP #### [address] [address] Potassium [Moles/Vol] 3.5 mmol/L Normal 3.5 - 5.[address] [facility] Comment on above: Performed By: #### B MP #### [address] [address] Sodium [Moles/Vol] 138 mmol/L Normal 136 - 145 [facility] Comment on above: Performed By: #### B MP #### [address] [address] Urea nitrogen [Mass/Vol] 7 mg/dL Normal 6 - 23 [facility] Comment on above: Performed By: #### B MP #### [address] [address] CBCon 09-05-2020 Erythrocyte distribution width (RBC) [Ratio] 13.2 % Normal 11.5 - 14.5 [facility] Comment on above: Performed By: #### C BC #### [address] [address] Hematocrit (Bld) [Volume fraction] 42.5 % Normal 36.0 - 46.0 [facility] Comment on above: Performed By: #### C BC #### [address] [address] Hemoglobin (Bld) [Mass/Vol] 14.5 g/dL Normal 12.0 - 16.0 [facility] Comment on above: Performed By: #### C BC #### [address] [address] MCHC (RBC) [Mass/Vol] 34.2 g/dL Normal 32.0 - 36.0 [facility] Comment on above: Performed By: #### C BC #### [address] [address] MCV (RBC) [Entitic vol] 88 fL Normal 80 - 100 [facility] Comment on above: Performed By: #### C BC #### [address] [address] Platelets (Bld) [#/Vol] 272 10*3/uL Normal 150 - 450 [facility] Comment on above: Performed By: #### C BC #### [address] [address] RBC (Bld) [#/Vol] 4.86 x10E12/L Normal 4.00 - 5.[address] 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: Is : no(1) Is : no(1) REVIEW [...] [Drawn 04-Sep-2020 23:14:00], Basic Metabolic Panel [Drawn 04-Sep-2020:14:00], Urine Test [Drawn 04-Sep-2020 23:04:00], Urinalysis [Drawn [...] Referenced From Triage - ED 04-Sep-2020 22:51 Merged With [facility] Risk Screen - Adult Emergenc yon 09-05-2020 Risk Screen - Adult Emergency Preferred Language: Preferred Language: Preferred Language for Discussing Health Care (patient/designee)Romanian Advanced Directives: Advance Directive/DNRno Family Violence Adult: [...] an injured patient at a Trauma Center ([facility]/[place]/ [place]): no Electronic Signatures: Nette Dorantes (SANDEEV) (Signed 04-Sep-2020 23:08) Authored: Preferred Language, Advanced Directives, Family Violence Adult, Learning Assessment (Patient), Learning Assessment (Other Learner), Pressure Injury/TB/Substance, Pressure Injury, CAGE Last Updated: 04-Sep-2020 23:08 by Nette Dorantes (DEL) Merged With [facility] Triage - EDon 09-05-2020 Triage - [...] BMI (kg/m2): 38.627 Calculated BSA (m2) 2.15 [place] Coma Scale: Best Eye Response: (E4) spontaneous Best Motor Response: (M6) obeys commands Best Verbal Response: (V5) oriented Andres Score: 15 Cough lasting greater than 3 weeks: no Patient immunocompromised related to: N/A Allergies: yes Last menstrual period: 05-Aug-2020 BUSINESS PROGRAMMER History: (states no form of BC) Patient [...] 04-Sep-2020 23:01 by Nette Dorantes (SUPV) Normal [facility] URINALYSISon 09-05-2020 Appearance (U) CLEAR Normal CLEAR [facility] Comment on above: Performed By: #### U A #### [place] [address] Bilirubin (U) [Mass/Vol] Negative Normal NEGATIVE [facility] Comment on above: Performed By: #### U A #### [address] [address] BLOOD Negative Normal NEGATIVE [facility] Comment on above: Performed By: #### U A #### [place] [id number] Color (U) Yellow Normal STRAW,YELLO W [facility] Comment on above: Performed By: #### U A #### [address] [address] Glucose [Mass/Vol] Negative Normal NEGATIVE [facility] Comment on above: Performed By: #### U A #### [address] [address] Ketones Ql (U) Negative Normal NEGATIVE [facility] Comment on above: Performed By: #### U A #### [address] [address] Leukocyte esterase Test strip Ql (U) Negative Normal NEGATIVE [facility] Comment on above: Performed By: #### U A #### [address] [address] Nitrite Ql (U) Negative Normal NEGATIVE [facility] Comment on above: Performed By: #### U A #### [address] [address] pH (Bld) 5.0 Normal 5.0 - 8.0 [facility] Comment on above: Performed By: #### U A #### [address] [address] Protein (U) [Mass/Vol] Negative Normal NEGATIVE [facility] Comment on above: Performed By: #### U A #### [address] [address] Specific gravity (U) [Rel density] 1.015 Normal 1.005 - 1.035 [facility] Comment on above: Performed By: #### U A #### [address] [address] Urobilinogen Qn (U) <2.0 Normal 0.0 - 1.9 [facility] Comment on above: Performed By: #### U A #### [address] [address] , Urineon 0 Beta HCG ( test) Ql (U) Negative NEGATIVE [facility] [place], [place] Comment on above: Specimens with hCG l evels near the threshold of the test (25 mIU/mL) may give a negative or indeterminate result. In such cases, another test should be performed with a new specimen in 48-72 hours. If early is suspected clinically in this setting, correlation with quantitative serum b-hCG level is suggested. Chef has confirmed the use of plasma for this test. This has not been cleared or approved by the U.S. Food and Drug Administration. The FDA has determined that such clearance is not necessary. XR ELBOW RIGHT (2 VIEWS)on Ren, [facility] Incoming Radiant Results From [employer] - 08/09/2020 8:04 PM EDT EXAMINATION: TWO XRAY VIEWS OF THE RIGHT ELBOW 08/09/2020 7:50 pm COMPARISON: None. HISTORY: ORDERING SYSTEM PROVIDED HISTORY: Fall TECHNOLOGIST PROVIDED HISTORY: Fall FINDINGS: There is no elbow effusion. There is no acute fracture or dislocation. Alignment is normal. IMPRESSION: No acute abnormality. [employer] EXAMINATION: TWO XRA Y VIEWS OF THE RIGHT ELBOW 08/09/2020 7:50 pm COMPARISON: None. HISTORY: ORDERING SYSTEM PROVIDED HISTORY: Fall TECHNOLOGIST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 [facility] Comment on above: Result Comment: pt sitting up in bed wit h breakfast tray, visitor at bedside 08-18-2022 07:15-0400 Blood Pressure Location [facility] 08-18-2022 07:15-0400 Diastolic blood pressure 56 mm[Hg] [facility] 08-18-2022 07:15-0400 Heart rate 69 /min [facility] 08-18-2022 07:15-0400 Mean blood pressure 74 mm[Hg] [facility] 08-18-2022 07:15-0400 Respiratory rate 16 /min [facility] 08-18-2022 07:15-0400 Systolic blood pressure 111 mm[Hg] [facility] 08-18-2022 05:58-0400 Blood Pressure Location [facility] 08-18-2022 05:58-0400 Diastolic blood pressure 59 mm[Hg] [facility] 08-18-2022 05:58-0400 Heart rate 67 /min [facility] 08-18-2022 05:58-0400 Mean blood pressure 77 mm[Hg] [facility] 08-18-2022 05:58-0400 Respiratory rate 16 /min [facility] 08-18-2022 05:58-0400 Systolic blood pressure 113 mm[Hg] [facility] 08-18-2022 04:06-0400 Blood Pressure Location [facility] 08-18-2022 04:06-0400 Body temperature 98.06 [degF] [facility] 08-18-2022 04:06-0400 Diastolic blood pressure 65 mm[Hg] [facility] 08-18-2022 04:06-0400 Heart rate 70 /min [facility] 08-18-2022 04:06-0400 Mean blood pressure 79 mm[Hg] [facility] 08-18-2022 04:06-0400 Respiratory rate 16 /min [facility] 08-18-2022 04:06-0400 Systolic blood pressure 107 mm[Hg] [facility] 08-13-2022 20:04-0400 Hourly Rounding [facility] Comment on above: Result Comment: Patient discharged off u nit. Discharge instructions were reviewed. Pt walks off unit without any notable signs or symtpoms of distress. 08-13-2022 19:45-0400 Hourly Rounding [facility] 08-13-2022 19:45-0400 Hourly Rounding [facility] Comment on above: Result Comment: Patient sitting in bed. BPP results reviewed with patient. Pt denied any additional questions. Call light within reach. 08-13-2022 18:12-0400 Heart rate 88 /min [facility] 08-13-2022 18:12-0400 Nursing Progress Note Reason Other: Pt updated on orders received from . payalzes understanding [facility] 08-13-2022 18:12-0400 SaO2% (BldA) [Mass fraction] 99 % [facility] 08-13-2022 17:33-0400 Body temperature 97.88 [degF] [facility] 08-13-2022 17:33-0400 Diastolic blood pressure 72 mm[Hg] [facility] 08-13-2022 17:33-0400 Mean blood pressure 88 mm[Hg] [facility] 08-13-2022 17:33-0400 Respiratory rate 18 /min [facility] 08-13-2022 17:33-0400 Systolic blood pressure 121 mm[Hg] [facility] 07-26-2022 10:22-0400 Hourly Rounding [facility] Comment on above: Result Comment: discharge instructions p rovided and pt signs discharge consent with RN witness. pt preparing for discharge, belly band placed on pt. RN offers wheelchair exit for discharge and pt declines and wants to walk down on own. 07-26-2022 10:22-0400 Promise to Return [facility] 07-26-2022 10:00-0400 Hourly Rounding [facility] 07-26-2022 10:00-0400 Promise to Return [facility] 07-26-2022 09:15-0400 Blood Pressure Location [facility] 07-26-2022 09:15-0400 Body temperature 97.7 [degF] [facility] 07-26-2022 09:15-0400 Diastolic blood pressure 62 mm[Hg] [facility] 07-26-2022 09:15-0400 Heart rate 70 /min [facility] 07-26-2022 09:15-0400 Hourly Rounding [facility] 07-26-2022 09:15-0400 Mean blood pressure 74 mm[Hg] [facility] 07-26-2022 09:15-0400 Respiratory rate 18 /min [facility] 07-26-2022 09:15-0400 Systolic blood pressure 97 mm[Hg] [facility] 07-26-2022 09:00-0400 Promise to Return [facility] 07-26-2022 08:14-0400 Body temperature 98.06 [degF] [facility] 07-26-2022 08:14-0400 Diastolic blood pressure 66 mm[Hg] [facility] 07-26-2022 08:14-0400 Heart rate 81 /min [facility] 07-26-2022 08:14-0400 Mean blood pressure 80 mm[Hg] [facility] 07-26-2022 08:14-0400 Respiratory rate 18 /min [facility] 07-26-2022 08:14-0400 Systolic blood pressure 109 mm[Hg] [facility] 07-17-2022 09:07-0400 Body temperature 97.88 [degF] [facility] 07-17-2022 09:07-0400 Diastolic blood pressure 74 mm[Hg] [facility] 07-17-2022 09:07-0400 Heart rate 85 /min [facility] 07-17-2022 09:07-0400 Respiratory rate 16 /min [facility] 07-17-2022 09:07-0400 SaO2% (BldA) [Mass fraction] 100 % [facility] 07-17-2022 09:07-0400 Systolic blood pressure 117 mm[Hg] [facility] 06-26-2022 21:38-0400 Blood Pressure Location [facility] 06-26-2022 21:38-0400 Diastolic blood pressure 61 mm[Hg] [facility] 06-26-2022 21:38-0400 Heart rate 83 /min [facility] 06-26-2022 21:38-0400 Hourly Rounding [facility] Comment on above: Result Comment: discharged ambulatory to pov 06-26-2022 21:38-0400 Mean blood pressure 75 mm[Hg] [facility] 06-26-2022 21:38-0400 Respiratory rate 16 /min [facility] 06-26-2022 21:38-0400 Systolic blood pressure 102 mm[Hg] [facility] 06-26-2022 21:15-0400 Blood Pressure Location [facility] 06-26-2022 21:15-0400 Diastolic blood pressure 64 mm[Hg] [facility] 06-26-2022 21:15-0400 Heart rate 74 /min [facility] 06-26-2022 21:15-0400 Hourly Rounding [facility] 06-26-2022 21:15-0400 Mean blood pressure 78 mm[Hg] [facility] 06-26-2022 21:15-0400 Respiratory rate 16 /min [facility] 06-26-2022 21:15-0400 Systolic blood pressure 106 mm[Hg] [facility] 06-26-2022 21:05-0400 Body temperature 97.88 [degF] [facility] 06-26-2022 21:05-0400 Respiratory rate 18 /min [facility] 06-26-2022 21:00-0400 Hourly Rounding [facility] Comment on above: Result Comment: ice water given 06-19-2022 01:30-0400 Hourly Rounding [facility] Comment on above: Result Comment: updated on plan of care after speaking to dr jung. verb understanding and all d/c instructions provided. denies further needs/concerns. ambulates off unit without any further questions. 06-19-2022 01:00-0400 Hourly Rounding [facility] Comment on above: Result Comment: rests in bed on phone. d enies any needs. denies any pain at this time or any pain or cramping since arrival. call light within reach 06-19-2022 00:15-0400 Hourly Rounding [facility] 06-18-2022 23:54-0400 Body temperature 97.88 [degF] [facility] 06-18-2022 23:54-0400 Diastolic blood pressure 65 mm[Hg] [facility] 06-18-2022 23:54-0400 Heart rate 76 /min [facility] 06-18-2022 23:54-0400 Mean blood pressure 81 mm[Hg] [facility] 06-18-2022 23:54-0400 Respiratory rate 18 /min [facility] 06-18-2022 23:54-0400 Systolic blood pressure 112 mm[Hg] Luis Carlos Jung [facility] 06-18-2022 23:45-0400 Blood Pressure Location Luis Carlos Jung [facility] 05-01-2022 17:45-0400 Hourly Rounding Luis Carlos Jung [facility] Comment on above: Result Comment: reviewed disch inst and meds to take states understanding 05-01-2022 17:30-0400 Hourly Rounding Luis Carlos [facility] 05-01-2022 17:23-0400 Body temperature 98.06 [degF] Luis Carlos Jung [facility] 05-01-2022 17:23-0400 Diastolic blood pressure 57 mm[Hg] Luis Carlos Jung [facility] 05-01-2022 17:23-0400 Heart rate 83 /min uLis Carlos Jung [facility] 05-01-2022 17:23-0400 Mean blood pressure 71 mm[Hg] Luis Carlos Jung [facility] 05-01-2022 17:23-0400 Respiratory rate 16 /min Luis Carlos Jung [facility] 05-01-2022 17:23-0400 Systolic blood pressure 99 mm[Hg] Luis Carlos Jung [facility] 05-01-2022 17:15-0400 Blood Pressure Location Luis Carlos Jung [facility] 05-01-2022 17:15-0400 Hourly Rounding Luis Carlos Jung [facility] 04-02-2022 13:30-0400 Hourly Rounding Luis Carlos Jung [facility] Comment on above: Result Comment: pt given discharge instr uctions at this time to follow up with fabiana sunday or states understanding to call office tomorrow for appointment 04-02-2022 12:30-0400 Hourly Rounding [facility] Carlos Jung [facility] Comment on above: Result Comment: pt returns to bed from r estroom at this time denies discomfort at this time 04-02-2022 11:30-0400 Hourly Rounding Luis Carlos Jung [facility] Comment on above: Result Comment: pt sitting in bed at thi s time denies needs or discomfort 04-02-2022 06:28-0400 Body temperature 99.68 [degF] Luis Carlos Jung [facility] 04-02-2022 06:28-0400 Diastolic blood pressure 68 mm[Hg] Luis Carlos Jung [facility] 04-02-2022 06:28-0400 Heart rate 89 /min Luis Carlos Jung [facility] 04-02-2022 06:28-0400 Heart rate 86 /min Luis Carlos Jung [facility] 04-02-2022 06:28-0400 Mean blood pressure 83 mm[Hg] Luis Carlos Jung [facility] 04-02-2022 06:28-0400 Respiratory rate 20 /min Luis Carlos Jung [facility] 04-02-2022 06:28-0400 SaO2% (BldA) [Mass fraction] 98 % Luis Carlos Jung [facility] 04-02-2022 06:28-0400 Systolic blood pressure 114 mm[Hg] Luis Carlos Fabiana [facility] 03-23-2022 21:08-0400 Hourly Rounding Luis Carlos Jung [facility] Comment on above: Result Comment: Patient ambulatory off u nit. No signs or symptoms of distress noted. 03-23-2022 20:35-0400 Hourly Rounding Luis Carlos Jung [facility] Comment on above: Result Comment: Patient updated on plan of care. Verbalizes understanding. Call light in reach. 03-23-2022 19:49-0400 Blood Pressure Location Luis Carlos Jung [facility] 03-23-2022 19:49-0400 Body temperature 98.78 [degF] Luis Carlos Jung [facility] 03-23-2022 19:49-0400 Diastolic blood pressure 66 mm[Hg] Luis Carlos Jung [facility] 03-23-2022 19:49-0400 Heart rate 69 /min Luis Carlos Jung [facility] 03-23-2022 19:49-0400 Hourly Rounding Luis Carlos Jung [facility] Comment on above: Result Comment: Patient arrives on unit. 03-23-2022 19:49-0400 Mean blood pressure 79 mm[Hg] Luis Carlos Jung [facility] 03-23-2022 19:49-0400 Respiratory rate 16 /min Luis Carlos Jung [facility] 03-23-2022 19:49-0400 Systolic blood pressure 106 mm[Hg] Luis Carlos Jung [facility] 10-14-2020 13:15-0500 Pulse (Heart Rate) 74 /min [facility] 10-14-2020 13:15-0500 Pulse Oximetry 98 % [facility] 10-14-2020 13:15-0500 Respiratory Rate 16 /min [facility] 10-14-2020 13:00-0500 BP Diastolic 74 mm[Hg] [facility] 10-14-2020 13:00-0500 BP Systolic 123 mm[Hg] [facility] 10-14-2020 10:13-0500 BMI (Body Mass Index) 34.33 kg/m2 [facility] 10-14-2020 10:13-0500 Body Temperature 97.81 [degF] [facility] 10-14-2020 10:13-0500 Body weight 90.72 kg [facility] 10-14-2020 10:13-0500 Height 162.6 cm [facility] 08-09-2020 20:33-0400 BP Diastolic 81 mm[Hg] [place] 08-09-2020 20:33-0400 BP Systolic 122 mm[Hg] [place] 08-09-2020 20:33-0400 Pulse (Heart Rate) 78 /min [place] 08-09-2020 20:33-0400 Respiratory Rate 16 /min [place] 08-09-2020 19:03-0400 BMI (Body Mass Index) 39.48 kg/m2 [place] 08-09-2020 19:03-0400 Body Temperature 98.29 [degF] [place] 08-09-2020 19:03-0400 Body weight 104.33 kg [place] 08-09-2020 19:03-0400 Height 162.6 cm [place] 08-09-2020 19:03-0400 Pulse Oximetry 98 % [place] Encounters Encounter Date Encounter Type Care Provider Facility Start: 11-06-2023 End: 11-06-2023 ambulatory RASHAUN PURVIS Not Available Start: 11-04-2023 End: 11-04-2023 OB Triage Rashaun PURVIS [facility] Start: 10-31-2023 End: 10-31-2023 ambulatory RASHAUN PURVIS Not Available Start: 10-18-2023 End: 10-18-2023 ambulatory DODIE MILLER Not Available Start: 10-03-2023 End: 10-03-2023 ambulatory DODIE MILLER Not Available Start: 09-12-2023 End: 09-12-2023 ambulatory RASHAUN PURVIS Not Available Start: 08-23-2023 End: 08-23-2023 Lab Drop off ZORAN MYRICK [facility] Start: 08-23-2023 End: 08-24-2023 ambulatory ADMIN SECRETARY ZORAN J ELEN Facility[facility] Start: 08-19-2023 End: 09-14-2023 Pre-admission assessment Julia Haywood [facility] Start: 08-18-2023 End: 08-18-2023 ambulatory DO Julia Wallace Haywood Facility:[facility] Start: 08-18-2023 End: 08-18-2023 OB Triage Julia JPatricia Haywood [facility] Start: 07-25-2023 End: 07-25-2023 Emergency department patient visit Kristian Guillermo Facility:[facility] Start: 07-25-2023 End: 07-25-2023 Emergency department patient visit Kristian Guillermo [facility] Start: 06-28-2023 End: 06-29-2023 ambulatory Roverto V. Spasic Facility:[facility] Start: 06-28-2023 End: 06-28-2023 Patient encounter procedure Roverto V. Spasic [facility] Start: 06-14-2023 End: 06-14-2023 Emergency department patient visit Kristian Guillermo Facility:[facility] Start: 06-14-2023 End: 06-14-2023 Emergency department patient visit Kristian Guillermo [facility] Start: 06-12-2023 End: 06-13-2023 ambulatory Luis Carlos Jung Facility:[facility] Start: 06-12-2023 End: 06-12-2023 Patient encounter procedure Luis Carlos Jung [facility] Start: 05-21-2023 End: 05-22-2023 Emergency department patient visit DO Gopi Rodriguez Facility:[facility] Start: 05-21-2023 End: 05-21-2023 Emergency department patient visit Gopi Rodriguez [facility] Start: 04-30-2023 End: 05-01-2023 ambulatory Luis Carlos Jung Facility:[facility] Start: 04-30-2023 End: 04-30-2023 Lab Drop off Luis Carlos Jung [facility] Start: 04-30-2023 End: 05-01-2023 ambulatory Luis Carlos Jung Facility:[facility] Start: 04-30-2023 End: 04-30-2023 Patient encounter procedure Luis Carlos Jung [facility] Start: 04-26-2023 End: 04-26-2023 Emergency department patient visit Laura Leonfelipe Facility:[facility] Start: 04-26-2023 End: 04-26-2023 Emergency department patient visit Vimalelena Charles Bert [facility] Start: 01-31-2023 End: 01-31-2023 Emergency department patient visit Kristian Guillermo Facility:[facility] Start: 01-31-2023 End: 01-31-2023 Emergency department patient visit Kristian Guillermo [facility] Start: 09-24-2022 End: 09-27-2022 Evaluation and management of inpatient Luis Carlos Jung Facility:[facility] Start: 09-22-2022 End: 09-22-2022 ambulatory Luis Carlos Jung Facility:[facility] Start: 09-22-2022 End: 09-22-2022 OB Triage Luis Carlos Jung [facility] Start: 09-20-2022 End: 09-20-2022 ambulatory Luis Carlos Jung Facility:[facility] Start: 09-20-2022 End: 09-20-2022 OB Triage Luis Carlos Jung [facility] Start: 09-19-2022 End: 09-19-2022 ambulatory Jj MIKE Facility:[facility] Start: 09-19-2022 End: 09-19-2022 OB Triage Jj MIKE [facility] Start: 09-14-2022 End: 09-14-2022 ambulatory Luis Carlos Jung Facility:[facility] Start: 09-14-2022 Emergency department patient visit DO Goip Rodriguez Facility:[facility] Start: 09-14-2022 End: 09-14-2022 OB Triage Luis Carlos Jung [facility] Start: 09-12-2022 End: 09-12-2022 ambulatory Luis Carlos Jung Facility:[facility] Start: 09-12-2022 End: 09-12-2022 OB Triage Luis Carlos Jung [facility] Start: 09-08-2022 End: 09-08-2022 ambulatory Luis Carlos Jung Facility:[facility] Start: 09-08-2022 End: 09-08-2022 OB Triage Luis Carlos Jung [facility] Start: 09-06-2022 End: 12-06-2022 ambulatory Luis Carlos Jung Facility:[facility] Start: 09-05-2022 End: 09-06-2022 Emergency department patient visit DO Gopi Rodriguez Facility:[facility] Start: 09-05-2022 End: 09-05-2022 Emergency department patient visit Gopi Rodriguez [facility] Start: 09-05-2022 End: 12-05-2022 Patient encounter procedure SELF REFERRAL [facility] Start: 09-04-2022 End: 09-05-2022 ambulatory Luis Carlos Rochelle Jung Facility:[facility] Start: 09-04-2022 End: 09-04-2022 Lab Drop off Luis Carlos Rochelle Jung [facility] Start: 08-30-2022 End: 08-31-2022 ambulatory Luis Carlos Rochelle Jung Facility:[facility] Start: 08-30-2022 End: 08-31-2022 OB Triage Luis Carlos Rochelle Jung [facility] Start: 08-22-2022 End: 08-22-2022 OB Triage Luis Carlos Rochelle Jung [facility] Start: 08-18-2022 End: 08-18-2022 OB Triage Luis Carlos Rochelle Jung [facility] Start: 08-13-2022 End: 08-13-2022 OB Triage Luis Carlos Byrd Fabiana [facility] Start: 07-26-2022 End: 07-26-2022 OB Triage Luis Carlos Byrd Fabiana [facility] Start: 07-17-2022 End: 07-17-2022 Emergency department patient visit Ko Dumas [facility] Start: 06-28-2022 End: 06-28-2022 Patient encounter procedure Luis Carlos Byrd Fabiana [facility] Start: 06-26-2022 End: 06-26-2022 OB Triage Luis Carlos Byrd Fabiana [facility] Start: 06-20-2022 End: 07-15-2022 Pre-admission assessment Luis Carlos Jung [facility] Start: 06-18-2022 End: 06-19-2022 OB Triage Luis Carlos Byrd Fabiana [facility] Start: 05-02-2022 End: 06-15-2022 Pre-admission assessment THANG MILLAN [facility] Start: 05-01-2022 End: 05-01-2022 OB Triage Luis Carlos Byrd Fabiana [facility] Start: 04-02-2022 End: 04-02-2022 OB Triage Luis Carlos Byrd Fabiana [facility] Start: 03-23-2022 End: 03-23-2022 OB Triage Luis Carlos Byrd Fabiana [facility] Start: 03-16-2022 End: 03-16-2022 Patient encounter procedure Luis Carlos Jung [facility] Start: 02-15-2022 End: 02-15-2022 Lab Drop off Luis Carlos Jung [facility] Start: 02-23-2021 End: 02-23-2021 Patient encounter [...] 08-09-2020 End: 08-09-2020 Emergency department patient visit [facility] Start: 08-09-2020 End: 08-09-2020 Emergency department patient visit [facility] Work Phone: [facility] ED Comment on above: Contusion of right k nee, initial encounter (Primary Dx); Contusion of multiple sites of right shoulder and upper arm, initial encounter Start: 07-23-2017 End: 07-23-2017 Emergency department patient visit NKECHI TORRES [facility] Gu[facility] Procedures Date Procedure Procedure Detail [...] 05-12-2028 Tetanus vaccination Tetanus: Every 1 0yrs [facility] Start: 06-15-2021 Influenza vaccination INFLUENZ A (Season Ended) [facility] Start: 06-15-2020 Influenza vaccination Flu vaccine (# 1) [place], [place] Start: 2014 PAP TESTING PAP TESTING [facility] Start: 2014 Screening for malign ant neoplasm of cervix Cervical cancer screen [place], [place] Start: 2012 DTaP/Tdap/Td vaccine (1 - Tdap) DTaP/Tdap/Td vaccine (1 - Tdap) [place] Start: 2012 Urine microalbumin profile DTAP,TDAP,TD (1 - Tdap) [facility] Start: 2011 Hepatitis C antibody , confirmatory test Hepatitis C Screening [facility] Start: 2011 HEPATITIS C SCREENING HEPATITIS C SC REENING [facility] Start: 2011 HIV SCREENING HIV SCREENING [facility] Start: [address] [facility] [place] [place] Start: 2005 Adolescent depressio n screening assessment [facility] Start: 2004 HPV vaccine (1 - 2-d ose series) HPV vaccine (1 - 2-dose series) [place], [place] Start: 1996 History and physical examination, annual for health maintenance Wellness Visit [facility] Start: 1994 Varicella vaccine (1 of 2 - 2-dose childhood series) Varicella vaccine (1 of 2 - 2-dose childhood series) [place] Start: 1993 Screening for malign ant neoplasm of cervix Pap Smear [facility] PT ED PATIENT INFORMATION PT ED PATIENT INFORMATION Other 02/23/2021 [facility] Immunizations Immunization Date Immunization Notes Care Provider Lennox ramirez 08-18-2023 influenza, seasonal, injectable Julia Haywood [facility] 09-25-2022 influenza, seasonal, injectable SELF REFERRAL [facility] Comment on above: Early/Late Reason: E isaac/Late Reason: Nursing Judgment 01-28-2021 COVID-19, mRNA, LNP- S, PF, 30 mcg/0.3 mL dose; Translations: [Koding COVID-19 Vaccine] Luis Carlos Jung [facility] Comment on above: Reason for Medicatio n: Prophylaxis Reason for Medicatio n: Prophylaxis 12-31-2020 COVID-19, mRNA, LNP- S, PF, 30 mcg/0.3 mL dose; Translations: [Pfizer-BioNTech COVID-19 Vaccine] Luis Carlos Fabiana [facility] Comment on above: Reason for Medicatio n: Prophylaxis Reason for Medicatio n: Prophylaxis 05-12-2018 tetanus toxoid, reduced diphtheria toxoid, and acellular pertussis vaccine, adsorbed; Translations: [Adacel (Tdap)] Luis Carlos Fabiana [facility] Payers Date Payer Category Payer Unknown [id number] 2019 Unknown [id number] 1. [id number] 1993 Unknown [id number] 2.16.8 40.1.561262.3.579.2.173 1993 Unknown [id number] 2.16. 840.1.964060.3.579.2.903 1993 Unknown [id number] 2.16.8 40.1.780294.3.579.2.727 1993 Unknown [id number] 2.16.8 40.1.099559.3.579.2.727 1993 Unknown [id number] 2.16.8 40.1.162603.3.579.2.727 1993 Unknown [id number] 2.16.8 40.1.303532.3.579.2.727 1993 Unknown [id number] 2.16.8 40.1.671213.3.579.2.727 1993 Unknown [id number] 2.16.8 40.1.194975.3.579.2.727 1993 Unknown [id number] 2.16.8 40.1.189204.3.579.2. 1993 Unknown [id number] 2.16.8 40.1.900691.3.579.2. 1993 Unknown [id number] 2.16.8 40.1.762268.3.579.2. 1993 Unknown [id number] 2.16.8 40.1.894995.3.579.2. 1993 Unknown [id number] 2.16.8 40.1.336707.3.579.2. 1993 Unknown [id number] 2.16.8 40.1.298952.3.579.2. 1993 Unknown [id number] 2.16.8 40.1.526531.3.579.2 1993 Unknown [id number] 2.16.8 40.1.680122.3.579.2 1993 Unknown [id number] 2.16.8 40.1.893293.3.579.2 1993 Unknown [id number] 2.16.8 40.1.652625.3.579.2 1993 Unknown [id number] 2.16.8 40.1.036660.3.579.2. 1993 Unknown [id number] 2.16.8 40.1.891768.3.579.2. 1993 Unknown [id number] 2.16.8 40.1.422854.3.579.2. 1993 Unknown [id number] 2.16.8 40.1.402729.3.579.2. 1993 Unknown [id number] 2.16.8 40.1.970712.3.579.2. 1993 Unknown [id number] 2.16.8 40.1.324076.3.579.2 1993 Unknown [id number] 2.16.8 40.1.524649.3.579.2.727 1993 Unknown [id number] 2.16.8 40.1.415842.3.579.2.727 1993 Unknown [id number] 2.16.84 0.1.391800.3.579.2.1259 1993 Unknown [id number] 2.16.84 0.1.407565.3.579.2.1259 1993 Unknown [id number] 2.16.840 .1.139086.3.579.2.1259 1993 Unknown [id number] 2.16.840 .1.107485.3.579.2.1259 1993 Unknown [id number] 2.16.840 .1.460939.3.579.2.1259 1993 Unknown [id number] 2.16.840 .1.037318.3.579.2.1259 Social History Date Type Detail Facility Start: 08-09-2020 End: 10-14-2020 Tobacco smoking status NHIS Current every day smoker [place] Start: 08-09-2020 End: 10-14-2020 Tobacco use and exposure Never used [place] Start: 10-14-2020 Alcohol intake Ex-drinker (finding) [facility] Start: 1995 Sex Assigned At Not on file [place] Exposure to SARS-CoV -2 (event) Not sure [place] Start: 08-09-2020 Cigarettes smoked current (pack per day) - Reported [place] Start: 08-09-2020 Alcohol intake Lifetime non-d val (finding) [place] Start: 08-09-2020 History SDOH Alcohol Frequency 1 [place] Start: 07-06-2021 End: 08-18-2022 Tobacco smoking status Light tobacco smoker (finding) [facility] Sex Assigned At Female [facility] Tobacco [facility] Comment on above: current current denies Start: 06-28-2023 Tobacco smoking status Ex-smoker (fi nding) [facility] Comment on above: current Tobacco smoking status Never [facility] Comment on above: current Tobacco smoking status No Smokin g Status Entered [facility] Functional Status Date Assessment Result Facility 11-04-2023 Functional Status N/A [facility] 08-18-2023 Functional Status N/A [facility] 07-25-2023 Functional Status N/A [facility] 06-28-2023 Functional Status N/A [facility] 06-14-2023 Functional Status N/A [facility] 05-21-2023 Functional Status N/A [facility] 04-26-2023 Functional Status N/A [facility] 01-31-2023 Functional Status N/A [facility] 09-22-2022 Functional Status N/A [facility] 09-20-2022 Functional Status N/A [facility] 09-19-2022 Functional Status N/A [facility] 09-14-2022 Functional Status N/A [facility] 09-12-2022 Functional Status N/A [facility] 09-08-2022 Functional Status N/A [facility] 09-05-2022 Functional Status Yes [facility] 08-30-2022 Functional Status N/A [facility] 08-22-2022 Functional Status N/A [facility] 08-18-2022 Functional Status N/A [facility] 08-13-2022 Functional Status N/A [facility] 07-26-2022 Functional Status N/A [facility] 07-17-2022 Functional Status N/A [facility] 06-26-2022 Functional Status N/A [facility] 06-18-2022 Functional Status N/A [facility] 05-01-2022 Functional Status N/A [facility] 04-02-2022 Functional Status N/A [facility] Clinical Notes 03-10-2021 to 11-04-2023 Note Date & Type Note Facility 11-04-2023 Evaluation + Plan note Diagnostic Tests PendingUrine Culture 11/04/23 [facility] 11-04-2023 Hospital Discharg e instructions Follow Up Care 11/04/2023 07:55:34 With:Rashaun PURVIS Address: [address] [place] [address]- Business (1) When:11/06/2023 Comments:Call for any problems.Appointment has already been scheduledCall physician if symptoms worsenPlease call if you need to rescheduleReturn for contractions closer, longer, harderReturn for decreased movementReturn if ruptured membranes or vaginal bleeding [facility] 08-23-2023 Evaluation + Plan note Diagnostic Tests PendingT3 Total 08/23/23 [facility] 08-18-2023 Note The following Any t Education Materials have been given to the patient: EducationMaterial [facility] 08-18-2023 Hospital Discharg e instructions Patient Education 08/18/2023 08:14:46 Second Trimester of , Vsgm-rp-Kvrk Second Trimester of The second trimester of [...] Follow these instructions at home: Medicines Take aokt-rjv-dxcpkbc and prescription medicines only as told by [...] a counselor. Where to find more information [place] Association: americanpregnancy.org [place] [employer] Obstetricians and Gynecologists: www.acog.org Office [...] provider. Document Revised: 03/09/2021 Document Reviewed: 01/13/2021 [employer] Patient Education 2022 Sticky. [facility] 07-25-2023 Evaluation + Plan note Extrac [...] Diagnostic Tests Pending * Urine Culture 07/25/23 [facility]10-11-2023 Hospital Discharge instructions Patient Education 07/25/2023 [...] to keep your urine pale yellow. Take pwsj-asr-oweimdn and prescription medicines only as told by [...] provider. Document Revised: 06/14/2021 Document Reviewed: 06/14/2021 [employer] Patient Education 2022 [employer] [facility] 07/25/2023 08:14:26 With:Luis Carlos Jung Address: [facility] [address], [place] [id number] Top Hat (1) When:07/28/2023 09:56:27 [facility]09-14-2023 Evaluation + Plan note Diagnostic Tests Pending * Urine Culture 06/28/23 [facility]09-14-2023 Hospital Discharge instructions Patient Education 06/28/2023 11:39:14 Urinary Tract Infection, Adult, Dnex-sk-Fsid Urinary Tract Infection, Adult A urinary tract [...] Follow these instructions at home: Medicines Take blkx-xoq-luajutd and prescription medicines only as told by [...] provider. Document Revised: 05/13/2021 Document Reviewed: 05/13/2021 [employer] Patient Education 2022 Sticky. 06/28/2023 11:39:14 Urinary Tract Infection, Adult, Njtd-yy-Mztg Urinary Tract Infection, Adult A urinary tract [...] Follow these instructions at home: Medicines Take bnjk-oai-basmuhw and prescription medicines only as told by [...] provider. Document Revised: 05/13/2021 Document Reviewed: 05/13/2021 [employer] Patient Education 2022 Sticky. [facility] 06/28/2023 10:22:58 With:Fabiana MARION, SAMPSON Buenrostro Address: [address] [place] [address]- When: Unknown [facility] [id number] Evaluation + Plan noteExtracted from: Title:ED Note Author:Jos Ugalde PA-C te:06/14/23 1. Abdominal pain (R10.9: Un specified abdominal pain) Orders: ABO/Rh Automated Diff Basic Metabolic Panel Beta hCG Quantitative CBC w/ Auto Diff eGFR Extra Blue Tube Extra SST Tube Hepatic Function Panel Lipase Level UA With Cult Reflex US 1st Trimester [facility]08-08-2023 Hospital Discharge instructions Patient Education 05/21/2023 23:23:44 Nonspecific Chest Pain, Adult, Hsie-zl-Rrqd Nonspecific Chest Pain Chest pain can be [...] Follow these instructions at home: Medicines Take fohw-zxg-tfpbilq and prescription medicines only as told by [...] ?Eating a heart-healthy diet. A diet and pharmacy clinical specialist (dietitian) can help you to learn [...] provider. Document Revised: 12/15/2021 Document Reviewed: 12/15/2021 Elsevier Patient Education 2022 Sticky. 05/21/2023 23:23:44 Nausea and Vomiting, Adult, Pfmu-cp-Gzqu Nausea and Vomiting, Adult Nausea is feeling [...] fruit juice). ?Low-calorie sports drinks. Eat bland, doje-ss-ozsnpt foods in small amounts as you are able, such as: ?Bananas. ?Applesauce. ?Rice. ?Low-fat (lean) meats. ?[place]. ?Crackers. Avoid drinking fluids that have a lot of sugar or caffeine in them. This includes energy drinks, sports drinks, and soda. Avoid alcohol. Avoid spicy or fatty foods. General instructions Take gdeq-lgc-lnjotdp and prescription medicines only as told by your doctor. Drink enough fluid to keep your pee (urine) pale yellow. Wash your hands often with soap and water for at least 20 seconds. If you cannot use soap and water, use hand banquet supervisor. Make sure that everyone in your home [...] your doctor about eating and drinking. Take qoni-vtk-hpvjkpy and prescription medicines only as told by your doctor. Contact your doctor if your symptoms get worse or you have new symptoms. Keep all follow-up visits. This information is not intended to replace advice given to you by your health care provider. Make sure you discuss any questions you have with your health care provider. Document Revised: 04/07/2022 Document Reviewed: 04/07/2022 [employer] Patient Education 2022 [employer] 05/21/2023 23:23:44 Abdominal Pain During , Dwaz-zw-Mxlf Abdominal Pain During Belly (abdominal) pain is [...] keep your pee (urine) pale yellow. Take ajtz-nvn-sxbukkj and prescription medicines only as told by [...] provider. Document Revised: 06/14/2021 Document Reviewed: 06/14/2021 [employer] Patient Education 2022 [employer]. Follow Up Care 05/21/2023 20:38:52 With:Luis Carlos Jung Address: [facility] [address] [address] Business (1) When:05/24/2023 Comments:Take the Pepcid once daily until you have completed the course. You can use the Zofran every 6 hours as needed for nausea and vomiting. Please follow-up with your primary care doctor next 2 to 3 days. Please return to the ED for any new or worsening symptoms. [facility]08-07-2023 Evaluation + Plan noteExtracted from: Title:ED [...] day(s), # 15 cap(s), Refills(s) 0, Pharmacy: [facility], 162.6, cm, 05/21/23 20:50:00 EDT, Height/Length Dosing, 75.3, kg, 05/21/23 20:50:00 EDT, Weight Dosing famotidine, 20 mg = 2 mL, Soln-IV, IV Push, Once, Stop date 05/21/23 21:00:00 EDT, STAT, Start date 05/21/23 21:00:00 EDT, 05/21/23 21:00:00 EDT famotidine, 20 mg = 1 tab(s), Oral, Daily, # 14 tab(s), Refills(s) 0, Pharmacy: [facility], 162.6, cm, 05/21/23 20:50:00 EDT, Height/Length Dosing, 75.3, kg, 05/21/23 20:50:00 EDT, Weight Dosing ondansetron, 4 mg = 2 mL, Injection, IV Push, Once, Stop date 05/21/23 21:00:00 EDT, STAT, Start date 05/21/23 21:00:00 EDT, 05/21/23 21:00:00 EDT ondansetron, 4 mg = 1 tab(s), Oral, q8hr, # 12 tab(s), Refills(s) 0, Pharmacy: [facility], 162.6, cm, 05/21/23 20:50:00 EDT, [...] UA With Cult Reflex US 1st Trimester [facility]07-17-2023 Evaluation + Plan note Diagnostic Tests Pending * PAP [id number] 04/30/23 * Urine Culture 04/30/23 [facility]07-17-2023 Evaluation + Plan note Diagnostic Tests Pending * RPR with Conf Rfx 04/30/23 * HIV Screen 4th Generation wRfx 04/30/23 * Rubella Antibody IgG 04/30/23 * Hepatitis B Surface Antigen 04/30/23 [facility]07-13-2023 Evaluation + Plan noteExtracted from: Title:ED Note Author:Jos Ugalde PA-C te:04/26/23 Abdominal pain (R10.9: Unspe cified abdominal pain) (Z34.90: Encounter for supervision of normal , unspecified, unspecified trimester) Orders: Beta hCG Quantitative Extra Lav Tube Extra SST Tube US 1st Trimester US Transvaginal [facility]07-13-2023 Hospital Discharge instructions Patient Education 04/26/2023 [...] to keep your urine pale yellow. Take lghi-mey-poeiptk and prescription medicines only as told by [...] provider. Document Revised: 06/14/2021 Document Reviewed: 06/14/2021 [employer] Patient Education 2022 [employer]. Follow Up Care 04/26/2023 08:52:22 With:Luis Carlos Jung Address: [address] [place], [place] [id number] [facility] (1) When:04/29/2023 10:58:02 [facility]04-19-2023 Evaluation + Plan noteExtracted from: Title:ED [...] Head eGFR Oxygen Therapy PT & PTT [facility]04-19-2023 Hospital Discharge instructions Patient Education 01/31/2023 [...] Follow these instructions at home: Medicines Take zent-jlj-dzleijs and prescription medicines only as told by your health care provider. Ask your health care provider if the medicine prescribed to you: ?Requires you to avoid driving or using heavy machinery. ?Can cause constipation. You may need to take these actions to prevent or treat constipation: ?Drink enough fluid to keep your urine pale yellow. ?Take axsk-udp-mondsow or prescription medicines. ?Eat foods that are [...] provider. Document Revised: 01/23/2020 Document Reviewed: 11/13/2019 [employer] Patient Education 2022 Sticky. Follow Up Care 01/31/2023 09:42:02 With:THANG BELINDA Address: [address] [place] [address] Business (1) When:02/03/2023 11:57:07 Comments:Call the office [...] fever, or any new or worsening symptoms. [facility]12[facility]16[facility] Comment: Electronically Signed By: Luis Carlos Jung MD\.br\Date and Time Signed: 09/29/22 09:25 [id number] [facility] Comment on above:Result Comment: Electronically Signed By: Luis Carlos Jung MD\.br\Date and Time Signed: 09/29/22 09:25 [id number] NoteThe following Patient Education Materials have been given to the patient: [facility] NoteThe following Patient Education Materials have been given to the patient: [facility]12-09-2022 Hospital Discharge instructions Follow Up Care 09/22/2022 15:11:14 With:Luis Carlos Jung Address: [address] [place] [address]- [facility] (1) When:09/24/2022 20:30:00 Comments:Appointment has already been scheduledCall for any problems.Call for fever > 100.5 FCall for severe abdominal painCall physician for heavy vaginal bleedingCall physician if symptoms worsenReturn for contractions closer, longer, harderReturn for decreased movementReturn if ruptured membranes or vaginal bleedingCall at 7:30 pm Sunday to confirm induction at 8:30 [facility]12-07-2022 NoteThe following Patient Education Materials have been given to the patient: [facility]12-06-2022 NoteThe following Patient Education Materials have been given to the patient: [facility]12-06-2022 Hospital Discharge instructions Follow Up Care 09/19/2022 01:24:08 With:Luis Carlos Jung Address[facility] [facility] [address] [place] [address] [facility] (1) When:09/20/2022 Comments:Appointment has already been scheduledCall Dr if fever>100.5 F, heavy bleedingCall for any problems.Call for severe abdominal painCall physician for heavy vaginal bleedingCall physician if symptoms worsenReturn for contractions closer, longer, harderPlease call if you need to rescheduleReturn for decreased movementReturn if ruptured membranes or vaginal bleeding [facility]12-01-2022 NoteThe following Patient Education Materials have been given to the patient: [facility]12-01-2022 Hospital Discharge instructions Patient Education 09/14/2022 11:56:10 Sinus Headache, Nawo-nw-Fqzc Sinus Headache A sinus headache happens when [...] on the bottle or box. Medicines Take zvtv-cgo-yfckgau and prescription medicines only as told by [...] face, forehead, ears, or upper teeth. Take dcyd-ghd-yeadgxs and prescription medicines only as told by your doctor. If told, apply a warm, moist washcloth to your face. This can help to lessen pain. This information is not intended to replace advice given to you by your health care provider. Make sure you discuss any questions you have with your health care provider. Document Released: 01/31/2012 Document Revised: 09/13/2018 Document Reviewed: 07/12/2018 [employer] Patient Education 2020 [employer] Follow Up Care 09/14/2022 09:13:06 With:Luis Carlos Jung Address: [address], [facility] [address] [place] [address]- Business (1) When:09/20/2022 Comments:Return if ruptured membranes or vaginal bleedingReturn for decreased movementReturn for contractions closer, longer, harderCall physician if symptoms worsenCall for severe abdominal painCall for fever > 100.5 F Drink 8-10 glasses of water/day Use SUDAFED, TYLENOL AND BENADRYL as previouslydirected by Dr Fabiana Longoira - [facility]11-29-2022 NoteThe following Patient Education Materials have been given to the patient: EducationMateriTiffanie [facility]11-29-2022 Hospital Discharge instructions Patient Education 09/12/2022 20:39:28 Third Trimester of , Glki-gt-Tlba Third Trimester of The third trimester is from week 28 through week 40 (months 7 through 9). This trimester is when your unborn baby (fetus) is growing very fast. At the end of the ninth month, the unborn baby is about20 inches in length. It weighs about 6 10 pounds. Follow these instructions at home: Medicines Take nrwi-xed-xifabhy and prescription medicines only as told by [...] 12/26/2010 Document Revised: 01/22/2020 Document Reviewed: 11/06/2017 [employer] Patient Education 2020 [employer]. Follow Up Care 09/12/2022 19:44:10 With:Luis Carlos Jung Address: [address] [place] [address] [facility] (1) When:09/20/2022 Comments:Appointment has already been scheduledCall Dr if fever>100.5 F, heavy bleedingCall for any problems.Call for severe abdominal painCall physician for heavy vaginal bleedingCall physician if symptoms worsenPlease call if you need to rescheduleReturn for contractions closer, longer, harderReturn for decreased movementReturn if ruptured membranes or vaginal bleeding [facility]11-25-2022 NoteThe following Patient Education Materials have been given to the patient: [facility] Hospital Discharge instructions Follow Up Care 09/08/2022 08:14:23 With:Luis Carlos Jung Address: [address] [place] [address] [facility] (1) When:09/11/2022 Comments:Return for contractions closer, longer, harderReturn for decreased movementReturn if rupturedmembranes or vaginal bleeding [facility]11-23-2022 Hospital Discharge instructions Patient Education 09/05/2022 [...] the coronavirus come from? In September 2019, Center told the World Health Organization (WHO) of several cases of lung disease (human respiratory illness). These cases were linked to an open seafood and livestock market in the [facility]. The link to the seafood [...] and virus naming World Health Organization (WHO): www.who.int/emergencies/diseases/mjmze-hjsdoktovcl-4078/technical-g uidance/maaptu-ztb-foerqtkoiwv-disease-(covid-2019)-wqm-svr-lilno-hxzm-uiqxpj-ci Who is at risk for complications from [...] relieve his or her symptoms by using ghns-khw-erepktx medicines that treat sneezing, coughing, and runny [...] water are not available, use alcohol-based hand banquet supervisor. Avoid touching your face, mouth, nose, or [...] Prevention (CDC): www.cdc.gov/coronavirus/2019-ncov/travelers/index.html World Health Organization (WHO): www.who.int/emergencies/diseases/enkmb-uwncgjjfoqd-2604/travel-advice Know the risks and take action to [...] water are not available, use alcohol-based hand banquet supervisor. Cough or sneeze into a tissue, sleeve, [...] in hot, soapy water or use a foundation engineer. Air-dry your dishes. Wash laundry in hot [...] Health Organization (WHO) Information and news updates: www.who.int/emergencies/diseases/tondj-zvoitwvycgi-6628 Coronavirus health topic: www.who.int/health-topics/coronavirus Questions and answers on COVID-19: www.who.int/news-room/q-a-detail/s-g-jbqzrscadfoya Global tracker: viaCycle Citizen Of [place] Academy of Pediatrics (AAP) Information for families: www.healthychildren.org/Romanian/health-issues/conditions/chest-lungs/Pages /6236-Spqbk-Xghcoolezkk.aspx The coronavirus situation is changing rapidly. Check [...] 01/27/2020 Document Revised: 01/27/2020 Document Reviewed: 01/27/2020 [employer] Patient Education 2019 [employer]. 09/05/2022 22:13:40 COVID-19 COVID-19 COVID-19 is a [...] to fight infection (immunocompromised). Live in a retirement or long-term care facility. Have a long-term [...] managed at home with rest, fluids, and tylh-olr-tnlvoih medicines. Treatment for a serious infection usually [...] are safe for you. General instructions Take fbsl-put-intaddh and prescription medicines only as told by [...] water are not available, usean alcohol-based hand banquet supervisor. ?Avoid touching your mouth, face, eyes, or [...] water are not available, use alcohol-based hand banquet supervisor. Stay away from other members of your [...] have a weak immunity, live in a retirement, or have chronic disease. There is no [...] 11/06/2019 Document Revised: 02/26/2020 Document Reviewed: 11/06/2019 [employer] Patient Education 2020 [employer]. Follow Up Care 09/05/2022 20:08:29 With:Luis Carlos Jung Address: [address] [place], [place] [address] [address] Business (1) When:09/08/2022 21:42:10 Comments:Use the albuterol inhaler 2 puffs every 4 hours for the next 2 to 3 days, you can use the Zofran every 6 hours as needed for nausea and vomiting. Please follow-up with your primary care doctor in thenext 2 to 3 days. Please return to the ED for any new or worsening symptoms. With:THANG MILLAN Address: [address] [place] [address] Business (1) When:09/08/2022 21:42:06 [facility]11-22-2022 Evaluation + Plan noteExtracted from: Title:ED [...] Nausea/Vomiting, # 12 tab(s), Refills(s) 0, Pharmacy: [facility], 163, cm, 09/05/22 20:14:00 EST, [...] Therapy PT & PTT Rapid COVID Antigen ([facility]) Saline Lock Insert Troponin 0 Hr. XR Chest Single View Future Appointments Appointment Date:09/06/2022 07:00:00 AM Scheduled Provider: [facility] App[facility] Type:Outpatient COVID Testing [facility]11-21-2022 Evaluation + Plan note Diagnostic Tests Pending * Group B Streptococcus colonization by PCR 09/04/22 [facility]11-17-2022 NoteThe following Patient Education Materials have been given to the patient: EducationMateriTiffanie [facility]11-17-2022 Hospital Discharge instructions Patient Education 08/31/2022 00:56:47 Third Trimester of , Cqem-jw-Qyar Third Trimester of The third trimester is from week 28 through week 40 (months 7 through 9). This trimester is when your unborn baby (fetus) is growing very fast. At the end of the ninth month, the unborn baby is about20 inches in length. It weighs about 6 10 pounds. Follow these instructions at home: Medicines Take ppig-cqp-uqbdohy and prescription medicines only as told by [...] 12/26/2010 Document Revised: 01/22/2020 Document Reviewed: 11/06/2017 [employer] Patient Education 2020 [employer]. Follow Up Care 08/30/2022 21:31:53 With:Lui sCarlos Jung Address: [address] [address]- Business (1) When:09/04/2022 Comments:Call for any problems.Call for severe abdominal painCall physician for heavy vaginal bleedingReturnfor contractions closer, longer, harderReturn for decreased movementReturn if ruptured membranes or vaginal bleeding [facility]11-08-2022 Hospital Discharge instructions Follow Up Care 08/22/2022 14:58:59 With:Dr. 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 [facility]11-04-2022 Evaluation + Plan note Diagnostic Tests Pending * Urine Culture 08/18/22 [facility]11-04-2022 Hospital Discharge instructions Follow Up Care 08/18/2022 03:47:49 With:Luis Carlos Jung Address: [address] [address]- Business (1) When:08/21/2022 08:45:00 Comments:Appointment has already been scheduled, please keep scheduled apptCall for any problems.Call physician if symptoms worsen [facility]10-30-2022 Hospital Discharge instructions Patient Education 08/13/2022 [...] 10/31/2007 Document Revised: 10/21/2019 Document Reviewed: 11/09/2016 [employer] Patient Education 2020 [employer] 08/13/2022 19:55:11 Monitoring Overview Monitoring Overview [...] 09/21/2003 Document Revised: 06/25/2018 Document Reviewed: 04/30/2017 [employer] Patient Education 2020 [employer]. Follow Up Care 08/13/2022 17:29:42 With:Luis Carlos Jung Address: [address] [place] [phone] Business (1) When:1 to 2 days Comments:Call for any problems.Return for contractions closer, longer, harderReturn for decreased movementReturn if ruptured membranes or vaginal bleeding [facility]10-13-2022 Hospital Discharge instructions Follow Up Care 07/27/2022 01:12:54 With:Dr. Jung [phone] Address:Unknown When:09/24/2022 20:30:00 Comments:Call for any problems.Return if ruptured membranes or vaginal bleedingReturn for decreased movementcontractions every 5 minutes lasting 45 seconds for an hourCall Sunday night at 7:30 PM to assure bed availability for induction [facility]10-12-2022 Hospital Discharge instructions Patient Education 07/26/2022 [...] Follow these instructions at home: Medicines Take ndeu-cdq-algwtzr and prescription medicines only as told by [...] as fried or sweet foods. ?Take an ynel-qlq-liuervq or prescription medicine for constipation. If you [...] 12/28/2009 Document Revised: 05/28/2019 Document Reviewed: 11/11/2018 [employer] Patient Education 2019 Sticky. Follow Up Care 07/26/2022 07:56:25 With:Luis Carlos Jung Address: [address] [address] Business (1) When:08/07/2022 07:45:00 [facility]10-03-2022 Evaluation + Plan noteExtracted from: Title:ED Note Author:Hi Carmona PA-C te:07/17/22 UTI (urinary tract infection ) (N39.0: Urinary tract infection, site not specified) Orders: cephalexin, 500 mg = 1 cap(s), Oral, q12hr, X 5 day(s), # 10 cap(s), Refills(s) 0, Pharmacy: [facility], 162.5, cm, 07/17/22 9:09:00 EDT, Height/Length Dosing, 80, kg, 07/17/22 9:09:00 EDT, Weight Dosing Patient Specific Meds, Each, Misc, Once, Stop date 07/17/22 9:10:34 EDT, Physician Stop, 07/17/22 9:10:34 EDT Influenza A&B Ag Rapid COVID Antigen ([facility]) UA With Cult Reflex [facility]10-03-2022 Hospital Discharge instructions Patient Education 07/17/2022 [...] 01/26/2012 Document Revised: 01/23/2020 Document Reviewed: 09/04/2019 [employer] Patient Education 2020 [employer]. 07/17/2022 09:55:44 Urinary Tract Infection, Adult Urinary [...] Treatment for this condition includes: Antibiotic medicine. Zcss-qht-cqytnge medicines to treat discomfort. Drinking enough water [...] Follow these instructions at home: Medicines Take gvyh-xwi-hurhdpc and prescription medicines only as told by [...] 07/11/2006 Document Revised: 09/18/2019 Document Reviewed: 04/10/2019 [employer] Patient Education 2020 [employer]. Follow Up Care 07/17/2022 09:04:38 With:Luis Carlos Jung Address: [address] [place] [address] [address] Business (1) When:07/20/2022 09:46:49 With:THANG MILLAN Address: [address] [place] [address] Business (1) When:07/20/2022 09:46:41 Comments:Follow-up with your primary care provider in 3 to 5 days. If symptoms worsen, do not improve, or new symptoms arise please report back to emergency department for further evaluation. [facility]09-14-2022 Evaluation + Plan note Diagnostic Tests Pending * RPR with Conf Rfx 06/28/22 [facility]09-12-2022 Hospital Discharge instructions Patient Education 06/26/2022 [...] 09/21/2003 Document Revised: 06/25/2018 Document Reviewed: 04/30/2017 [employer] Patient Education 2020 [employer] 06/26/2022 21:35:59 Form - Movement Counts Movement [...] 11/09/2016 Elsevier Patient Education 2020 [employer] Inc. Follow Up Care 06/26/2022 20:41:33 With:Luis Carlos Jung Address: [address] [place] [address] [place] [address] [facility] (1) When:07/03/2022 07:45:00 Comments:Call for any problems.Please call if you need to rescheduleReturn for decreased movement [facility]09-05-2022 Hospital Discharge instructions Follow Up Care 06/18/2022 23:33:38 With:Luis Carlos Jung Address: [address], [facility] [address] [place] [address]- Business (1) When:5 to 7 days Comments:Appointment has already been scheduledCall for any problems.Call for fever > 100.5 FCall for severe abdominal painCall physician for heavy vaginal bleedingPlease call if you need to rescheduleReturn for contractions closer, longer, harderReturn for decreased movementReturn if ruptured membranes or vaginal bleeding [facility]07-18-2022 Hospital Discharge instructions Follow Up Care 05/01/2022 17:08:54 With:Luis Carlos Jung Address: [address], [facility] [place] [address]- Business (1) When:05/09/2022 Comments:Return if ruptured membranes or vaginal bleedingReturn for contractions closer, longer, harderCall physician if symptoms worsenCall physician for heavy vaginal bleedingCall for severe abdominal painCall for fever > 100.5 FCall for any problems. drink more fluids including gatorade, take milk of magnesia twice /day until yo u have bowel movements, benefiber daily [facility]06-19-2022 Evaluation + Plan note Diagnostic Tests Pending * Urine Culture 04/02/22 [facility]06-19-2022 Hospital Discharge instructions Patient Education 04/02/2022 10:22:48 Second Trimester of , Qsqx-ie-Nash Second Trimester of The second trimester is [...] Follow these instructions at home: Medicines Take zwxm-vfr-gscloek and prescription medicines only as told by [...] 12/26/2010 Document Revised: 01/23/2020 Document Reviewed: 11/06/2017 [employer] Patient Education 2020 [employer]. 04/02/2022 10:22:48 Vaginal Bleeding During , Second [...] says that this is safe. Medicines Take tjbw-tnc-wfpqqig and prescription medicines only as told by [...] 07/11/2006 Document Revised: 01/20/2020 Document Reviewed: 01/03/2018 [employer] Patient Education 2019 [employer]. Follow Up Care 04/02/2022 06:00:26 With:Dr. Jung [phone] Address:Unknown When:2 to 3 days Comments:Call for any problems.Call physician if symptoms worsen [facility]06-09-2022 Hospital Discharge instructions Patient Education 03/23/2022 20:39:21 Second Trimester of , Pgyg-nt-Vkpq Second Trimester of The second trimester is [...] Follow these instructions at home: Medicines Take mfod-uki-jrmjfcz and prescription medicines only as told by [...] 12/26/2010 Document Revised: 01/23/2020 Document Reviewed: 11/06/2017 [employer] Patient Education 2020 [employer]. 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 Avoid heavy [...] grounds. You are around people who have Tongan measles, fifth disease, or chickenpox. You have [...] 03/19/2009 Document Revised: 01/22/2020 Document Reviewed: 10/09/2017 [employer] Patient Education 2020 [employer]. 03/23/2022 20:39:21 Abdominal Pain During , Ccfz-oo-Cmxm Abdominal Pain During Belly (abdominal) pain is [...] keep your pee (urine) pale yellow. Take folf-azd-kendgpw and prescription medicines only as told by [...] 09/19/2010 Document Revised: 01/19/2020 Document Reviewed: 01/03/2018 [employer] Patient Education 2020 [employer] Follow Up Care 03/23/2022 19:35:57 With:Luis Carlos Jung Address: [facility] [address] [address] [id number] [facility] (1) When:03/27/2022 10:00:00 Comments:Call for any problems. Call [facility] first, ask to speak directly to Dr. Jung before heading to hospital unless an emergency. Call for severe abdominal pain or worsening pain.Return if vaginal bleedingor ruptured membranes.Wear belly band as much as possible, especially as your belly grows in . [facility]05-04-2022 Evaluation + Plan note Diagnostic Tests Pending * RPR with Conf Rfx 02/15/22 * HIV Screen 4th Generation wRfx 02/15/22 * Rubella Antibody IgG 02/15/22 * Hepatitis B Surface Antigen 02/15/22 * Urine Culture 02/15/22 [facility]06-18-2021 NoteHNO ID: [id number] Author: Bert Negrete, DO Service: ? 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 [facility]06-10-2021 NoteHNO ID: [id number] Author: RT Oliva(R) Service: Nuclear Medicine Author Type: Ui Ux Web Developer Type: Progress Notes Filed: 03/24/2021 9:39 AM [...] safety can be found using this link: [email or web address] SIGNATURE: RT Oliva(R) PATIENT NAME: Susan Bro DATE: March 24, 2021 TIME: 9:38 AM PAGER/CONTACT #:[facility]05-27-2021 NoteHNO ID: [id number] Author: Martha Webb MD Service: ? Author Type: Physician Type: Progress Notes Filed: 03/10/2021 12:03 PM Note Text: This note was created using Vimodiriter. 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 When you make an appointment with [facility], it's the start of a long-lasting partnership that's committed to your health. We provide the very best prevention, wellness and illness care, and give you access to the advanced medical services and expert treatment available at [facility]. Please note that the provider listed below is accepting patients in your area. [place]: [address] [place] [address] MD Debby Lala MD Christina Spring [facility] For the most up-to-date information on a care provider in your community, use the Find a Doctor tool on [employer] [facility] * Attachments The following attachments cannot be sent through Care Everywhere. * Vertigo (Romanian) * Arik Maneuver: Vertigo: Exercises (Romanian) documented in this encounter* Instructions* Bakari Valente [...] be sent through Care Everywhere. * Bruises (Romanian) * Contusion (Romanian) documented in this encounter Assessments Diagnosis Vertigo- Primary Dizziness and giddiness Diagnosis Contusion of right knee, initial encounter Contusion of multiple sites of right shoulder and upper arm, initial encounter Additional Source Comments INFORMATION SOURCE (unrecogn ized section and content) DATE CREATED AUTHOR 04/09/2018 [facility] DATE CREATED AUTHOR AUTHOR'S ORGANIZ ATION 08/10/2020 [facility] DATE CREATED AUTHOR AUTHOR'S ORGANIZ ATION 09/07/2020 [facility] DATE CREATED AUTHOR AUTHOR'S ORGANIZ ATION 10/20/2020 [facility] DATE CREATED AUTHOR AUTHOR'S ORGANIZ ATION 03/18/2021 [facility] DATE CREATED AUTHOR AUTHOR'S ORGANIZ ATION 11/15/2021 [facility] DATE CREATED AUTHOR AUTHOR'S ORGANIZ ATION 08/25/[address] [facility] DATE CREATED AUTHOR AUTHOR'S ORGANIZ ATION 11/07/2023 [facility] EPIC Reason for Visit (unrecogniz ed section and content) Reason Comments Dizziness Reason Comments Knee Pain right knee pain, fel l over a dust guzman [employer] and fell onto right knee. denies hitting head or any LOC Shoulder Pain rt shoulder, fell ov er dust guzman onto her right side. Susan Griffiths PA-C - 10/14/2020 10:44 AM Amena Cantrell RN - 10/14/2020 10:32 AM EST ED Notes (unrecognized secti on and content) [facility] ED Note: NAME: Susan Bro 24 y.o. CSN: [id number] PCP: Physician No History: Chief Complaint: Dizziness [...] does have reproducible vertigo with position changes. Tssgnn-kk-ooeb maneuvers are intact without dysmetria. There is negative Romberg sign. There was no ataxia on ambulation. Psychiatric: Mood and Affect: Mood normal. Behavior: Behavior normal. Thought Content: Thought content normal. Laboratory & Radiological Imaging (if done): Labs Reviewed URINALYSIS - Abnormal; Notable for the following components: Result Value Clarity, Urine Cloudy (*) Specific [place]rrigon 1.028 (*) pH, Urine 8.0 (*) Protein, [...] at the following links: For Healthcare Providers: https://www.fda.gov/media/912466/download For Patients: https://www.fda.gov/media/234262/download HCG URINE, QUALITATIVE - Normal CBC AND DIFFERENTIAL Narrative: The following orders were created for panel order CBC w/ Diff. Procedure Abnormality Status --------- ------ CBC Auto Differential[[id number]] Abnormal Final result Please view results for these tests on the individual orders. HCG URINE, QUALITATIVE URINALYSIS CT Head Or Brain Without Contrast Final Result 1. No acute intracranial hemorrhage, focal edema or mass effect. Workstation ID: [id number] EKG: Normal sinus rhythm with sinus arrhythmia RATE: 74 AXIS: Normal axis INTERVALS: KS interval of 178 ms, QRS duration of [...] Antivert. She is referred to follow-up with [facility] or [facility] that she does not currently have a [...] needed for dizziness . Susan Griffiths Physicians [facility] Dialysis Rn [facility] Emergency Department Susan Griffiths PA-C 10/14/20 1203 Special isolation precautions are in place with signage outside this patient's room. This care coordination manager performs hand hygiene and enters the [...] or prosecute any alcohol or drug abuse patient.[facility] Care Team (unrecognized sect ion and content) Personnel Name: THANG MILLAN CNP Address: [address] [place], [place] [address] Personnel Name: THANG MILLAN CNP Address: [address] [place] [phone] [place] Personnel Name: THANG MILLAN CNP Address: [address] [place] [phone]- [place] Personnel Name: THANG MILLAN CNP Address: [address] [place] [phone]- [place] Personnel Name: THANG MILLAN CNP Address: [address] [place] [phone]- [place] Personnel Name: THANG MILLAN CNP Address: [address] [place] [phone]- Personnel Name: THANG MILLAN CNP Address: [address] [place] [phone]- [place] Personnel Name: THANG MILLAN CNP Address: [address] [place] [phone]- [place] Personnel Name: THANG MILLAN CNP Address: Address: [address] [place] [phone]- [place] Personnel Name: THANG MILLAN CNP Address: Address: [address] [place] [phone]- [place] Personnel Name: THANG MILLAN CNP Address: Address: [address] [place] [phone]- [place] Personnel Name: THANG MILLAN CNP Address: Address: [address] [place] [phone]- [place] Personnel Name: THANG MILLAN CNP Address: Address: [address] [place] [phone]- [place] Personnel Name: THANG MILLAN CNP Address: Address: [address] [place] [phone]- [place] Personnel Name: THANG MILLAN CNP Address: Address: [address] [place] [phone]- [place] Personnel Name: THANG MILLAN CNP Address: Address: [address] [place] [phone]- [place] Personnel Name: THANG MILLAN CNP Address: Address: [address] [place] [phone]- [place] Personnel Name: THANG MILLAN CNP Address: Address: [address] [place] [id number] Personnel Name: THANG MILLAN CNP Address: Address: [address] [place] [address] Personnel Name: THANG MILLAN CNP Address: Address: [address] [place] [phone]- Personnel Name: THANG MILLAN CNP Address: Address: [address] [place] [address] Personnel Name: THANG MILLAN CNP Address: Address: [address] [place] [phone] Personnel Name: THANG MILLAN CNP Address: Address: [address] [place] [address]- Personnel Name: THANG MILLAN CNP Address: Address: [address] [place] [phone]- Personnel Name: THANG MILLAN CNP Address: Address: [address] [place] [phone] Personnel Name: THANG MILLAN CNP Address: Address: [address] [place] [phone] Personnel Name: Luis Carlos Jung MD Address: Address: [facility] [address] Personnel Name: Luis Carlos Jung MD Address: Address: [facility] [address] Personnel Name: Luis Carlos Jung MD Address: Address: [facility] [address] Personnel Name: Luis Carlos Jung MD Address: Address: [facility] [address] Personnel Name: Luis Carlos Jung MD Address: Address: [facility] [address] Personnel Name: Rashaun PURVIS DO Address: Address: [address] , [facility] Herminia Lopez[address] Personnel Name: NONE, XXXX Address: Address: [facility] Personnel Name: LLC, GENERIC Personnel Name: LLC, [...] BE BASED ON THE PRIMARY CLINICAL RECORDS. [employer] [facility]. provides no warranty or guarantee of the accuracy or completeness of information in this document.
[2023-11-09 10:10] VITALS: BP 112/75; PULSE 78
== END 2023-11-09 10:15 | disposition home or self-care (01) ==
LOC: FBCO 08:12 → FBC 09:34
PROVIDERS: Visit Provider Obstetrics & Gynecology
DX: O36.63X0 Maternal care for excessive fetal growth, third trimester, not applicable or unspecified (principal); Z3A.00 Weeks of gestation of pregnancy not specified
CPT/HCPCS: 59025

== ENCOUNTER 2023-11-13 08:50 | Outpatient (OUT) | payer OTHER, SELFPAY ==
--- NOTE | 2023-11-13 08:55 | US_ITS ---
[address] [address] Patient Name: DEANDRA MOCTEZUMA MRN: [id number] date: 1995 Sex: F Assigned Patient Location: [facility] Current Patient Location: [facility] Accession/Order Number: [id number] Exam Date: 11/13/2023 09:00 Report Date: 11/13/2023 09:55 At the request of: JOSSE PURVIS Procedure: US OB BPP w non-stress EXAMINATION: US OB BPP w non-stress HISTORY: Excessive growth O36.63X0 COMPARISON: No relevant comparison available. TECHNIQUE: Ultrasound biophysical profile was performed in the radiology department. non-reactive stress testing was performed by nursing staff in the birthing center. FINDINGS: BREATHING MOVEMENTS: 2.0 GROSS BODY MOVEMENTS: 2.0 TONE: 2.0 QUALITATIVE AMNIOTIC FLUID VOLUME: 2.0 PRESENTATION: CEPHALIC HEART RATE: 132.0 bpm H.B./min AMNIOTIC FLUID VOLUME: 15.6 cm cm GESTATIONAL AGE: 34 weeks 1 days CONCLUSION: Total biophysical profile score: 8.0 Electronically authenticated by: MERNA SILVA Date: 11/13/2023 09:55
--- OUTSIDE RECORDS SUMMARY | 2023-11-13 08:58 | XMS_ITS | CCD ---
Author Name Unknown Address [address] [place] [address] Organization [facility] Care Team Providers Care Clinical Counselor Name Role Phone MELISSANKECHI Unavailable Unavaila BAKARI Liriano Attending Unavailable THANG MILLAN Primary Care Unavailable No, Physician Primary Care Provider Unavailerum e NO, PHYSICIAN Primary Care Unavailable REGINE CHOW Admitting Unavailable REGINE CHOW Attending Unavailable Thang Millan Primary Care Provider [phone] Unavailable Primary Care Provider UnavailTHANG Mauro Primary [...] Luis Carlos Byrd Consulting Unavailable Spasic, Roverto Barron Attending Unavailabl [...] Luis Carlos Byrd Attending Unavailable Fabiana, Luis Cralos Byrd Admitting Unavailable Fabiana, Luis Carlos Byrd Attending Unavailable Laura Noel Attending Unavailable DODIE MILLER Attending Unavailable YANIV, RASHAUN Attending Unavailable YANIV, RASHAUN Attending Unavailable YANIV, RASHAUN Attending Unavailable ANGELA, DODIE Attending Unavailable Allergies Allergy Classification Reported Allergen(s) Allergy Type Date of Onset Reaction(s) Facility (20 sources) amoxicillin; Translations: [AMOXICILLIN] Drug Allergy 7 [facility] (20 sources) penicillin; Translations: [PENICILLIN] Drug Allergy 7 [facility] (3 sources) Penicillins; Translations: [PENICILLINS] Propensity to adverse reactions to drug 0 [place], [place] Medications Current Medications Medication Drug Class(es) [...] # 15 cap(s), Refills(s) 0, Pharmacy: [facility], 162.6, cm, 05/21/23 20:50:00 EDT, Height/Length Dosing, 75.3, kg, 05/21/23 20:50:00 EDT, Weight Dosing Start Date: 05/21/23 Stop Date: 05/26/23 Status: Ordered Start: 08-18-2022 End: 08-25-2022 take 1 capsule by mouth four times daily Keflex 500 mg Cap 500 mg = 1 cap(s), Oral, QID, X 7 day(s), # 28 cap(s), Refills(s) 0, Pharmacy: [facility], 162.5, cm, 08/18/22 4:15:00 EDT, Height/Length Dosing, 80, kg, 08/18/22 4:15:00 EDT, Weight Dosing Start Date: 08/18/22 Stop Date: 08/25/22 Status: Ordered Start: 07-17-2022 End: 07-22-2022 take 1 capsule by mouth every twelve hours Keflex 500 mg Cap 500 mg = 1 cap(s), Oral, q12hr, X 5 day(s), # 10 cap(s), Refills(s) 0, Pharmacy: [facility], 162.5, cm, 07/17/22 9:09:00 EDT, Height/Length Dosing, 80, kg, 07/17/22 9:09:00 EDT, Weight Dosing Start Date: 07/17/22 Stop Date: 07/22/22 Status: Ordered Start: 04-02-2022 End: 04-09-2022 take 1 capsule by mouth four times daily Keflex 500 mg Cap 500 mg = 1 cap(s), Oral, QID, X 7 day(s), # 28 cap(s), Refills(s) 0, Pharmacy: [facility], 160, cm, 04/02/22 6:28:00 [...] # 14 tab(s), Refills(s) 0, Pharmacy: [facility], 162.6, cm, 05/21/23 20:50:00 EDT, Height/Length Dosing, 75.3, kg, 05/21/23 20:50:00 EDT, Weight Dosing Start Date: 05/21/23 Status: Ordered ibuprofen 600 mg oral tablet (11 sources) Nonsteroidal Anti-inflammatory Drug Start: 09-27-2022 take 1 tablet by mouth every six hours ibuprofen 600 mg Tab 600 mg = 1 tab(s), Oral, q6hr, # 15 tab(s), Refills(s) 0, Pharmacy: [facility], 162.5, cm, 09/24/22 21:51:00 EST, [...] dizziness, # 15 tab(s), Refills(s) 0, Pharmacy: [facility], 163, cm, 11/30/21 7:18:00 EST, Height/Length [...] # 12 tab(s), Refills(s) 0, Pharmacy: [facility], 163, cm, 09/05/22 20:14:00 [...] # 6 tab(s), Refills(s) 0, Pharmacy: [facility], 163, cm, 06/28/23 10:39:00 [...] # 12 tab(s), Refills(s) 0, Pharmacy: [facility], 162.6, cm, 05/21/23 20:50:00 [...] AM) Normal Negative [facility] UA Auto SS [place].plasma/[place] .RBC (Bld) [Mass ratio] 0-3 /HPF Normal [...] FT UA Auto SS Urobilinogen Qn (U) 0.5555756 {Rola'U}/dL Normal 0.0 - 1.0 EU/dL FT UA Auto SS WBC Auto Ql (U) 1+ *ABN* (11/04/23 8:05 AM) Invalid Interpretation Code Negative FT UA Auto SS WBC LM.HPF (Urine sed) [#/Area] 6-15 /HPF Invalid Interpretation Code 0-5/HPF FT UA Auto SS T3 Totalon 08-24-2023 T3 [Mass/Vol] 146 ng/dL Invalid Interpretation Code [id number] [facility] Comment on above: Result Comment: Perf ormed at: [facility] [address] [place], [place] [id number] PhD Caroline [place] Performed By: #### 2 550944, 95419242, 6835696, 20107076, 5574977, 1398639, 70348014 ####[facility] [address] [place] [address] Auto Diffon 08-23-2023 Basophils/100 WBC (Bld) 0.9 % Normal 0.0-2.0 [facility] Comment on above: Order Comment: Order Added by Discern Expert. Performed By: #### 2 958108, 43719397, 8232558, 44121107, 0829703, 7113751, 08389548 ####[facility] [address] [place] [address] Basophils/Leukocytes Auto (Bld) [Pure # fraction] 0.1 E9/L Normal 0.0-0.2 [facility] Comment on above: Order Comment: Order Added by Discern Expert. Performed By: #### 2 536904, 53277962, 3480213, 80600302, 4993316, 2870491, 71920660 ####[facility] [address] [place] [address] Eosinophils/100 WBC (Bld) 1.3 % Normal 0.0-8.0 [facility] Comment on above: Order Comment: Order Added by Discern Expert. Performed By: #### 2 569425, 11922213, 7874568, 21154589, 1035024, 6017809, 72791763 ####[address] [address] Eosinophils/Leukocytes Auto (Bld) [Pure # fraction] 0.1 E9/L Normal 0.0-0.5 [facility] Comment on above: Order Comment: Order Added by Discern Expert. Performed By: #### 2 037270, 51635245, 0317391, 51110815, 4585369, 0934863, 83289731 ####[address] [address] Lymphocytes/100 WBC (Bld) 17.7 % Normal 14.0-50.0 [facility] Comment on above: Order Comment: Order Added by Discern Expert. Performed By: #### 2 785251, 09189127, 7361199, 16462936, 3018491, 3421492, 93150304 ####[address] [place] [address] Lymphocytes/Leukocytes Auto (Bld) [Pure # fraction] 1.4 E9/L Normal 1.0-4.0 [facility] Comment on above: Order Comment: Order Added by Discern Expert. Performed By: #### 2 265539, 41717774, 4204208, 72993463, 9171443, 3977872, 33675470 ####[address] [place] [address] Monocytes/100 WBC (Bld) 5.1 % Normal 4.0-14.0 [facility] Comment on above: Order Comment: Order Added by Discern Expert. Performed By: #### 2 166392, 38602613, 1890143, 85696873, 2099580, 0181656, 97284516 ####[address] [address] Monocytes/Leukocytes Auto (Bld) [Pure # fraction] 0.4 E9/L Normal 0.2-1.0 [facility] Comment on above: Order Comment: Order Added by Discern Expert. Performed By: #### 2 958983, 41784928, 7067749, 69168927, 2736350, 5305222, 01644459 ####[address] [address] Neutrophils/100 WBC (Bld) 75.0 % Normal 36.0-75.0 [facility] Comment on above: Order Comment: Order Added by Discern Expert. Performed By: #### 2 484721, 91908427, 6271145, 14099849, 7806452, 2143832, 67185610 ####[address] [address] Neutrophils/Leukocytes Auto (Bld) [Pure # fraction] 5.8 E9/L Normal 2.0-7.5 [facility] Comment on above: Order Comment: Order Added by Discern Expert. Performed By: #### 2 156009, 18919412, 1247520, 32766127, 0736959, 0569335, 28979517 ####[address] [place] [address] CBC w/ Auto Diffon 3 Erythrocyte distribution width (RBC) [Ratio] 14.5 % High 10.9-14.2 [facility] Comment on above: Performed By: #### 2 781710, 02448245, 6855307, 11574660, 6907311, 4751876, 70378616 ####[facility] [address] [place] [address] Hematocrit (Bld) [Volume fraction] 36.4 % Normal 34.0-46.0 [facility] Comment on above: Performed By: #### 2 775238, 93674885, 9181652, 12295594, 4287542, 3260952, 31246136 ####[facility] [address] [place] [id number] Hemoglobin (Bld) [Mass/Vol] 12.1 g/dL Normal 12.0-16.0 [facility] Comment on above: Performed By: #### 2 333375, 28049971, 2959132, 08766651, 0480740, 5058746, 36859110 ####[address] [place] [address] MCH (RBC) [Entitic mass] 30.2 pg Normal 27.0-34.0 [facility] Comment on above: Performed By: #### 2 371085, 94260734, 1528234, 07900179, 8069955, 5934143, 32886895 ####[facility] [address] [place], [place] [address] MCHC (RBC) [Mass/Vol] 33.3 g/dL Normal 31.4-36.0 [facility] Comment on above: Performed By: #### 2 224372, 44191674, 7163513, 03761580, 0990429, 0448363, 69741549 ####[facility] [address] [place] [address] MCV (RBC) [Entitic vol] 90.8 fL Normal 80.0-100.0 [facility] Comment on above: Performed By: #### 2 585487, 11569499, 5162384, 57698655, 7406891, 8795708, 25662245 ####[facility] [address] [place] [address] Platelet mean volume (Bld) [Entitic vol] 9.7 fL Normal 6.4-10.8 [facility] Comment on above: Performed By: #### 2 783927, 24940637, 7747935, 76576412, 6994338, 5888721, 96355054 ####[facility] [address] [place] [address] Platelets (Bld) [#/Vol] 270.0 E9/L Normal 150.0-500.0 [facility] Comment on above: Performed By: #### 2 111741, 22507854, 0111090, 66602670, 9169321, 7767424, 54916857 ####[facility] [address] [place] [address] RBC (Bld) [#/Vol] 4.0 E12/L Low 4.3-5.9 [facility] Comment on above: Performed By: #### 2 353583, 66360371, 0699582, 05728466, 9534663, 6649610, 99339928 ####[facility] [address] [place] [address] WBC corrected for nucl RBC Auto (Bld) [#/Vol] 7.7 E9/L Normal 4.0-11.0 [facility] Comment on above: Performed By: #### 2 287860, 02081899, 2487919, 29141309, 0339400, 8116452, 35662944 ####[facility] [address] [place] [address] CHEMISTRYOrdered By: SYSTEM SYSTEM on 08-23-2023 Albumin [...] 125 mL/min/1.73 m2 Normal >=59mL/min/ 1.73 m2 [facility] Comment on above: Interpretive Data: [...] [Mass/Vol] 2.8 g/dL Low 3.3-5.0 [facility] Comment on above: Performed By: #### 2 691489, 46244738, 9956205, 75602691, 9259405, 2903599, 33222629 ####[facility] [address] [place] [address] Albumin/Globulin (S) [Mass conc ratio] 0.7 Low 1.1-2.2 [facility] Comment on above: Performed By: #### 2 942928, 30417260, 2919980, 60306205, 1972351, 7537107, 22263958 ####[facility] [address] [place] [address] ALP [Catalytic activity/Vol] 49 Int._Unit/L Normal 21-98 [facility] Comment on above: Performed By: #### 2 500934, 09441158, 2420348, 73766467, 0769383, 0187310, 08350410 ####[facility] [address] [place] [address] ALT No additional P-5'-P [Catalytic activity/Vol] 15 Int._Unit/L Normal 6-46 [facility] Comment on above: Performed By: #### 2 134695, 02987254, 1607145, 14826293, 7172177, 4308864, 33839841 ####[facility] [address] [place] [address] Anion gap [Moles/Vol] 12 mmol/L Normal 6-16 [facility] Comment on above: Performed By: #### 2 996353, 98061424, 8004161, 37932587, 3382769, 3332523, 41593212 ####[facility] [address] [place] [address] AST [Catalytic activity/Vol] 17 Int._Unit/L Normal 5-43 [facility] Comment on above: Performed By: #### 2 091749, 79393245, 1300423, 18598938, 3225520, 4780872, 97511121 ####[address] [place] [address] Bilirubin [Mass/Vol] 0.5 mg/dL Normal 0.0-1.1 [facility] Comment on above: Performed By: #### 2 672832, 29273547, 8384802, 19560221, 4978075, 3200912, 95413364 ####[address] [place] [address] Calcium [Mass/Vol] 8.8 mg/dL Low 8.9-11.1 [facility] Comment on above: Performed By: #### 2 630677, 25888953, 1600735, 57741915, 0387337, 0665529, 95711641 ####[facility] [address] [place] [address] Chloride [Moles/Vol] 108 mmol/L Normal 101-111 [facility] Comment on above: Performed By: #### 2 111033, 23134216, 5196275, 62043005, 9131048, 1253807, 66986657 ####[facility] [address] [place] [address] CO2 [Moles/Vol] 22 mmol/L Normal 21-31 [facility] Comment on above: Performed By: #### 2 360396, 75082031, 1063282, 63443246, 3467123, 3689484, 29792850 ####[facility] [address] [place] [address] Creatinine [Mass/Vol] 0.6 mg/dL Normal 0.5-1.3 [facility] Comment on above: Performed By: #### 2 866536, 72956734, 5059182, 02555708, 3958370, 4706099, 14969335 ####[facility] [address] [place] [address] Globulin (S) [Mass/Vol] 3.8 g/dL Normal 1.4-4.0 [facility] Comment on above: Performed By: #### 2 417337, 65024198, 4962983, 54660415, 9132583, 7585052, 70108687 ####[facility] [address] [place] [address] Glucose [Mass/Vol] 88 mg/dL Normal 55-199 [facility] Comment on above: Result Comment: If t his glucose result represents a fasting glucose, interpretation should refer to the following reference range: 55-99 mg/dL Performed By: #### 2 147376, 76805036, 6720229, 71152832, 4730687, 6784931, 90683770 ####[facility] [address] [place] [address] Potassium [Moles/Vol] 3.5 mmol/L Normal 3.5-5.3 [facility] Comment on above: Performed By: #### 2 782321, 35015716, 2084373, 88462148, 4412409, 1424234, 99105753 ####[facility] [address] [place] [address] Protein [Mass/Vol] 6.6 g/dL Normal 6.0-7.8 [facility] Comment on above: Performed By: #### 2 451254, 43867471, 6191698, 97995699, 8063104, 5272879, 61523864 ####[facility] [address] [place] [address] Sodium [Moles/Vol] 138 mmol/L Normal 135-145 [facility] Comment on above: Performed By: #### 2 964378, 81843892, 0769798, 32117993, 9094410, 0780042, 11800276 ####[facility] [address] [place] [address] Urea nitrogen [Mass/Vol] 7 mg/dL Normal 5-21 [facility] Comment on above: Performed By: #### 2 993802, 97199713, 4325061, 96784750, 5066305, 5610891, 04529867 ####[facility] [address] [place] [address] Urea nitrogen/Creatinine [Mass ratio] 12 No Units Normal 10-20 [facility] Comment on above: Performed By: #### 2 900168, 31969028, 6899701, 89742826, 1106536, 3234253, 11839139 ####[facility] [address] [place] [address] HEMATOLOGYOrdered By: SYSTEM SYSTEM on 08-23-2023 Basophils/100 [...] 08-23-2023 Cholesterol [Mass/Vol] 238 mg/dL High 120-[address] [facility] Comment on above: Performed By: #### 2 773708, 52382334, 2578136, 49061559, 7441302, 2130299, 64942993 ####[facility] [address] [place] [address] Cholesterol in HDL [Mass/Vol] 64 mg/dL Invalid Interpretation Code [facility] Comment on above: Result Comment: HDL > or equal to 60 mg/dL: Low cardiovascular riskHDL < 40 mg/dL : High cardiovascular risk Performed By: #### 2 980903, 75266291, 6118182, 80537135, 4750638, 0202044, 63021416 ####[facility] [address] [place] [address] Cholesterol in LDL [Mass/Vol] 146 mg/dL High <=129 [facility] Comment on above: Performed By: #### 2 035322, 91944730, 8405095, 56372294, 1511200, 0636750, 68586708 ####[facility] [address] [place] [address] Cholesterol in VLDL [Mass/Vol] 33 mg/dL Normal 7-40 [facility] Comment on above: Performed By: #### 2 206478, 28126757, 9368683, 09386120, 4810336, 8289847, 33770108 ####[facility] [address] [place] [address] Triglyceride [Mass/Vol] 164 mg/dL High <=149 [facility] Comment on above: Performed By: #### 2 121128, 53376336, 4383486, 63038468, 1931649, 4223942, 41131073 ####[facility] [address] [place] [address] Physician Orderon 08-23-2023 Physician Order [id number]#1.00TIFF Normal [facility] T4 & TSHon 08-23-2023 T4 [Mass/Vol] 11.8 microgram/dL High 4.6-9.1 [facility] Comment on above: Performed By: #### 2 815852, 57791078, 5644633, 32254062, 0311917, 1776270, 75985806 ####[facility] [address] [place] [address] TSH Qn 3.61 m[IU]/L Normal 0.34-5.60 [facility] Comment on above: Performed By: #### 2 868859, 22635208, 9202477, 69328988, 6988425, 5241113, 53441905 ####[facility] [address] [place] [address] eGFRon 08-23-2023 GFR/1.73 sq M.predicted among non-blacks MDRD (S/P/Bld) [Vol rate/Area] 125 mL/min/1.73 m2 Normal >=59 [facility] Comment on above: Order Comment: Order added by Discern Expert. Result Comment: Spine Specialist lucy kidney disease could be indicated at eGFR's of less than 60 mL/min/1.73m2. Kidney failure is indicated at less than 15 mL/min/1.73m2. Performed By: #### 2 529691, 12622906, 8522121, 90342416, 7064842, 1821121, 68034966 ####[facility] [address] [place] [address] Nursing Assessmenton 023 Nursing Assessment [id number]#1.00TIFF Normal [facility] Consent for Treatmenton Consent for Treatment [id number]#1.00TIFF Normal [facility] Discharge Instructionson Discharge Instructions [id number]#1.00TIFF Normal [facility] Inpatient Clinical Summaryon 08-18-2023 Inpatient Clinical Summary Normal [facility] Inpatient Patient Summaryon 08-18-2023 Inpatient Patient Summary Normal [facility] Insurance Correspondenceon 1 10-18-2022 Insurance Correspondence [id number]#1.00TIFF Normal [facility] Vaccinationson 08-18-2023 Vaccinations [id number]#1.00TIFF Normal [facility] C Urineon 07-27-2023 Bacteria identified Cx Nom (U) Normal [facility] Comment on above: Performed By: #### 2 585313, 79245543 ####[facility] [address] [place] [address] ABO/Rhon 07-25-2023 ABO/Rh Positive Invalid Interpretation Code [facility] Comment on above: Performed By: #### 2 268360 ####[facility] [address] [place] [address] Auto Diffon 07-25-2023 Basophils/100 WBC (Bld) 1.1 % Normal 0.0-2.0 [facility] Comment on above: Order Comment: Order Added by Discern Expert. Performed By: #### 1 5142908, 8309309, 1307761, 8562276, 1930918, 6213721 ####[facility] [address] [place] [address] Basophils/Leukocytes Auto (Bld) [Pure # fraction] 0.1 E9/L Normal 0.0-0.2 [facility] Comment on above: Order Comment: Order Added by Discern Expert. Performed By: #### 1 5279214, 0345159, 2863389, 4433624, 6746350, 8984610 ####[facility] [address] [place] [address] Eosinophils/100 WBC (Bld) 1.2 % Normal 0.0-8.0 [facility] Comment on above: Order Comment: Order Added by Discern Expert. Performed By: #### 1 2947268, 5160587, 4314915, 4292853, 0265508, 9627496 ####[facility] [address] [place] [address] Eosinophils/Leukocytes Auto (Bld) [Pure # fraction] 0.1 E9/L Normal 0.0-0.5 [facility] Comment on above: Order Comment: Order Added by Gisselle Expert. Performed By: #### 1 6120779, 7006529, 6025537, 4637483, 1605428, 8915458 ####[facility] [address] [place] [address] Lymphocytes/100 WBC (Bld) 23.7 % Normal 14.0-50.0 [facility] Comment on above: Order Comment: Order Added by Discern Expert. Performed By: #### 1 6078634, 6036755, 8291259, 3212293, 0007634, 3484412 ####[address] [place] [address] Lymphocytes/Leukocytes Auto (Bld) [Pure # fraction] 1.4 E9/L Normal 1.0-4.0 [facility] Comment on above: Order Comment: Order Added by Gisselle Expert. Performed By: #### 1 4198308, 0304825, 1049149, 2525798, 6262654, 6601761 ####[address] [place] [address] Monocytes/100 WBC (Bld) 6.7 % Normal 4.0-14.0 [facility] Comment on above: Order Comment: Order Added by Gisselle Expert. Performed By: #### 1 8650156, 6678290, 5311506, 3229003, 6560080, 7030413 ####[address] [address] Monocytes/Leukocytes Auto (Bld) [Pure # fraction] 0.4 E9/L Normal 0.2-1.0 [facility] Comment on above: Order Comment: Order Added by Gisselle Expert. Performed By: #### 1 0072303, 1216659, 7326629, 1304925, 3980126, 4041334 ####[address] [place] [address] Neutrophils/100 WBC (Bld) 67.3 % Normal 36.0-75.0 [facility] Comment on above: Order Comment: Order Added by Discern Expert. Performed By: #### 1 2956023, 9208143, 2163088, 0747511, 7193672, 4132164 ####[facility] [address] [place] [address] Neutrophils/Leukocytes Auto (Bld) [Pure # fraction] 4.0 E9/L Normal 2.0-7.5 [facility] Comment on above: Order Comment: Order Added by Discern Expert. Performed By: #### 1 9843490, 1253184, 9789947, 7856247, 4622201, 1405891 ####[facility] [address] [place] [address] BLOOD BANKOrdered By: An Lassiter on 07-25-2023 ABO/Rh Interp Positive Invalid Interpretation Code [facility] [place] Subsection BMPon 07-25-2023 Creatinine [Mass/Vol] 0.6 mg/dL Normal 0.5-1.3 [facility] Comment on above: Performed By: #### 1 2445339, 0556697, 1428267, 2964479, 7309823, 5604978 ####[facility] [address] [place] [address] Urea nitrogen [Mass/Vol] 6 mg/dL Normal 5-21 [facility] Comment on above: Performed By: #### 1 0022936, 2132158, 7622143, 0619785, 5100973, 5249537 ####[facility] [address] [place] [address] Urea nitrogen/Creatinine [Mass ratio] 10 No Units Normal 10-20 [facility] Comment on above: Performed By: #### 1 4753335, 6109317, 1536731, 7857742, 7648081, 4260865 ####[facility] [facility] [address] [place] [address] Anion gap [Moles/Vol] 2 mmol/L Low 6-16 [facility] Comment on above: Performed By: #### 1 1253349, 9595846, 6311602, 3626203, 2216713, 0553278 ####[facility] [address] [place] [address] Calcium [Mass/Vol] 8.6 mg/dL Low 8.9-11.1 [facility] Comment on above: Performed By: #### 1 2660776, 9088918, 6028580, 2723940, 6314827, 9948203 ####[facility] [address] [place] [address] Chloride [Moles/Vol] 107 mmol/L Normal 101-111 [facility] Comment on above: Performed By: #### 1 9006466, 8479381, 9458137, 8487150, 5693395, 2168618 ####[facility] [address] [place] [address] CO2 [Moles/Vol] 27 mmol/L Normal 21-31 [facility] Comment on above: Performed By: #### 1 9033543, 3069248, 4480856, 6302864, 0860915, 5442525 ####[facility] [address] [place] [address] Glucose [Mass/Vol] 73 mg/dL Normal 55-199 [facility] Comment on above: Result Comment: If t his glucose result represents a fasting glucose, interpretation should refer to the following reference range: 55-99 mg/dL Performed By: #### 1 0867268, 8361948, 2729393, 8165849, 8864288, 8741022 ####[facility] [address] [place] [address] Potassium [Moles/Vol] 3.9 mmol/L Normal 3.5-5.3 [facility] Comment on above: Performed By: #### 1 4459357, 7486544, 8827027, 1399885, 1665187, 3763133 ####[facility] [address] [place] [address] Sodium [Moles/Vol] 132 mmol/L Low 135-145 [facility] Comment on above: Performed By: #### 1 2369851, 1956009, 7522997, 2019530, 0484755, 7765661 ####[facility] [address] [place] [address] BhCG Quanton 07-25-20[place] [address] m[IU]/mL High 1-3 F [facility] Comment on above: Result Comment: GEST ATIONAL AGE HCG RANGE (mIU/mL) NON- <1-3 0.2-1 WEEKS 5-50 1-2 WEEKS 50-500 2-3 WEEKS 100-5,000 3-4 WEEKS 500-10,000 4-5 WEEKS 1,000-50,000 5-6 WEEKS 10,000-100,000 6-8 WEEKS 15,000-200,000 8-12 WEEKS 10,000-100,000 Performed By: #### 2 702953 ####[address] [address] CBC w/ Auto Diffon Erythrocyte distribution width (RBC) [Ratio] 14.0 % Normal 10.9-14.2 [facility] Comment on above: Performed By: #### 1 8570529, 0713155, 0772123, 3073655, 7373820, 5374029 ####[address] [place] [address] Hematocrit (Bld) [Volume fraction] 37.1 % Normal 34.0-46.0 [facility] Comment on above: Performed By: #### 1 6670356, 5592385, 6342217, 7955064, 8674210, 6805571 ####[address] [place] [address] Hemoglobin (Bld) [Mass/Vol] 12.5 g/dL Normal 12.0-16.0 [facility] Comment on above: Performed By: #### 1 7502384, 2894732, 7350005, 0141244, 4632602, 3803678 ####[facility] [address] [place] [address] MCH (RBC) [Entitic mass] 29.9 pg Normal 27.0-34.0 [facility] Comment on above: Performed By: #### 1 8667569, 0321644, 2544329, 8972962, 3849549, 5650961 ####[address] [place] [address] MCHC (RBC) [Mass/Vol] 33.8 g/dL Normal 31.4-36.0 [facility] Comment on above: Performed By: #### 1 2244761, 2945884, 2304403, 4420219, 2410839, 8623508 ####[address] [address] MCV (RBC) [Entitic vol] 88.4 fL Normal 80.0-100.0 [facility] Comment on above: Performed By: #### 1 7613170, 3056335, 3467214, 5098243, 9222912, 9576199 ####[address] [address] Platelet mean volume (Bld) [Entitic vol] 7.9 fL Normal 6.4-10.8 [facility] Comment on above: Performed By: #### 1 8209450, 1846788, 1747755, 9988805, 5353761, 4997508 ####[address] [address] Platelets (Bld) [#/Vol] 261.0 E9/L Normal 150.0-500.0 [facility] Comment on above: Performed By: #### 1 5821990, 6724732, 3532609, 0658789, 8718317, 3905663 ####[address] [address] RBC (Bld) [#/Vol] 4.2 E12/L Low 4.3-5.9 [facility] Comment on above: Performed By: #### 1 9618917, 8505526, 7238439, 3565394, 3822678, 4490127 ####[address] [address] WBC corrected for nucl RBC Auto (Bld) [#/Vol] 5.9 E9/L Normal 4.0-11.0 [facility] Comment on above: Performed By: #### 1 8410723, 2834470, 1822762, 9211248, 2432879, 9893553 ####[facility] [address] [place] [address] CHEMISTRYOrdered By: SYSTEM SYSTEM on 07-25-2023 Albumin [...] 125 mL/min/1.73 m2 Normal >=59mL/min/ 1.73 m2 [facility] S Comment on above: Interpretive Data: [...] reference range: 55-99 mg/[place] [address] m[IU]/mL High 1 - 3 mIU/mL FT [...] 132 mmol/L Low 135 - 145 mmol/L [facility] Remisol Urea nitrogen [Mass/Vol] 6 mg/dL Normal 5 - 21 mg/dL [facility] Remisol Urea nitrogen/Creatinine [Mass ratio] 10 mg/mg Normal 10 - 20 FT Remisol Consent for Treatmenton 07-15 Consent for Treatment [id number] [facility] Discharge Instructionson Discharge Instructions [id number] Normal [facility] ED Clinical Summaryon 2022 ED Clinical Summary Normal Vika onofre [facility] ED Note-Physicianon 07-25-20 ED Note-Physician Normal [facility] Comment on above: Result Comment: Elec tronically Signed By: Jorge Velarde PA-C\.br\Date and Time Signed: 07/25/23 10:02 EDT\.br\Electronically Co-Signed By: Kristian Guillermo DO\.br\Date and Time Co-Signed: 07/25/23 20:25 EDT ED Patient Education Noteon 07-25-2023 ED Patient Education Note Normal [facility] ED Patient Summaryon ED Patient Summary Normal [facility] HEMATOLOGYOrdered By: SYSTEM SYSTEM on [...] or moles/Vol] UTC Abnormal 0.1-0.9 [facility] Comment on above: Result Comment: Resu lt verified by Discern Rule. Performed result UTC (Unable to Calculate) was sent as an Alpha code due the inability to calculate a valid numeric value. Performed By: #### 1 0941881, 0974996, 1913599, 5515690, 2244253, 2695114 ####[facility] [address] [place] [address] Albumin [Mass/Vol] 3.1 g/dL Low 3.3-5.0 [facility] Comment on above: Performed By: #### 1 6987570, 2309280, 9770443, 2647985, 0887478, 1576691 ####[facility] [address] [place] [address] Albumin/Globulin (S) [Mass conc ratio] 0.9 Low 1.1-2.2 [facility] Comment on above: Performed By: #### 1 3354480, 5873257, 9169598, 7280955, 2592308, 5412328 ####[address] [place] [address] ALP [Catalytic activity/Vol] 35 Int._Unit/L Normal 21-98 [facility] Comment on above: Performed By: #### 1 5492182, 4114443, 4038786, 9273955, 9819553, 0594043 ####[address] [place] [address] ALT No additional P-5'-P [Catalytic activity/Vol] 10 Int._Unit/L Normal 6-46 [facility] Comment on above: Performed By: #### 1 1685647, 2736725, 0970901, 7173925, 1608780, 2707386 ####[address] [address] AST [Catalytic activity/Vol] 18 Int._Unit/L Normal 5-43 [facility] Comment on above: Performed By: #### 1 4229964, 7330764, 2091720, 2269243, 8739357, 4200161 ####[address] [place] [address] Bilirubin [Mass/Vol] 0.4 mg/dL Normal 0.0-1.1 [facility] Comment on above: Performed By: #### 1 8856860, 4986235, 1624906, 0540192, 3176405, 9518417 ####[address] [place] [address] Globulin (S) [Mass/Vol] 3.6 g/dL Normal 1.4-4.0 [facility] Comment on above: Performed By: #### 1 3700717, 0463016, 9304784, 2393570, 9060588, 5414074 ####[facility] [address] [place] [address] Protein [Mass/Vol] 6.7 g/dL Normal 6.0-7.8 [facility] Comment on above: Performed By: #### 1 7226830, 2143546, 1838927, 2233478, 0642414, 2478672 ####[facility] [address] [place] [address] Bilirubin.direct [Mass/Vol] mg/dL Normal 0.1-0.4 [facility] Comment on above: Performed By: #### 1 3665397, 0031910, 1188955, 1069780, 7781025, 3957538 ####[facility] [address] [place] [address] Lipase Levelon 07-25-2023 Lipase [Catalytic activity/Vol] 28 U/L Normal 13-58 [facility] Comment on above: Performed By: #### 1 8449410, 6076233, 6344621, 5311237, 4910729, 1257428 ####[facility] [address] [place] [address] UA With Cult Reflexon 2022 Bacteria LM Ql (Urine sed) TRACE Normal Trace [facility] Comment on above: Performed By: #### 2 352084, 52343505 ####[facility] [address] [place] [address] Bilirubin Ql (U) Negative Normal Negative [facility] Comment on above: Performed By: #### 2 043437, 50494248 ####[facility] [address] [place] [address] Clarity (U) SL CLOUDY Abnormal Clear [facility] Comment on above: Performed By: #### 2 838664, 71140080 ####[facility] [address] [place] [address] Color (U) YELLOW Normal Yellow [facility] Comment on above: Performed By: #### 2 730453, 29846476 ####[facility] [address] [address] Epithelial cells.squamous LM.HPF (Urine sed) [#/Area] 0-2 Normal 0-2 [facility] Comment on above: Performed By: #### 2 818143, 98733626 ####[facility] [address] [place] [address] Glucose Test strip (U) [Mass/Vol] Negative Normal Negative [facility] Comment on above: Performed By: #### 2 306050, 24316402 ####[address] [address] Hemoglobin Ql (U) Negative Normal Negative [facility] Comment on above: Performed By: #### 2 779506, 53912337 ####[address] [address] Ketones (U) [Mass/Vol] Negative Normal Negative [facility] Comment on above: Performed By: #### 2 188245, 60379553 ####[address] [address] [place].plasma/[place] .RBC (Bld) [Mass ratio] 0-3 Normal 0-3 [facility] Comment on above: Performed By: #### 2 223077, 01916139 ####[address] [address] Nitrite Ql (U) Negative Normal Negative [facility] Comment on above: Performed By: #### 2 888968, 33431276 ####[address] [address] pH (U) 7.5 [pH] Invalid Interpretation Code 5.0-9.0 [facility] Comment on above: Performed By: #### 2 875052, 24836714 ####[address] [place] [address] Protein (U) [Mass/Vol] Negative Normal Negative [facility] Comment on above: Performed By: #### 2 376900, 72641200 ####[facility] [address] [place] [address] Specific gravity (U) [Rel density] 1.010 Invalid Interpretation Code 1.005-1.030 [facility] Comment on above: Performed By: #### 2 459324, 45059652 ####[place] [address] Type of Urine collection method Clean Catch Normal [facility] Comment on above: Performed By: #### 2 937401, 28236312 ####[facility] [address] [place] [address] Urobilinogen Qn (U) 1.0 {Rola'U}/dL Normal 0.0-1.0 [facility] Comment on above: Performed By: #### 2 189354, 18269394 ####[place] [address] WBC Auto Ql (U) 2+ Abnormal Negative [facility] Comment on above: Performed By: #### 2 548081, 58751882 ####[facility] [address] [place] [address] WBC LM.HPF (Urine sed) [#/Area] 0-5 Normal 0-5 [facility] Comment on above: Performed By: #### 2 117784, 78096578 ####[place] [address] URINALYSISOrdered By: Emy Aiken on 07-25-2023 Bacteria [...] AM) Normal Negative [facility] UA Auto SS [place].plasma/[place] .RBC (Bld) [Mass ratio] 0-3 /HPF Normal [...] [facility] UA Auto SS Urobilinogen Qn (U) 1.6579552 {Rola'U}/dL Normal 0.0 - 1.0 EU/dL [facility] UA Auto SS WBC Auto Ql (U) 2+ *ABN* (07/25/23 8:33 AM) Invalid Interpretation Code Negative [facility] UA Auto SS WBC LM.HPF (Urine sed) [#/Area] 0-5 /HPF Normal 0-5/HPF [facility] UA Auto SS US Limitedon 07-25 US Limited Normal Fish [facility] eGFRon 07-25-2023 GFR/1.73 sq M.predicted among non-blacks MDRD (S/P/Bld) [Vol rate/Area] 125 mL/min/1.73 m2 Normal >=59 [facility] Comment on above: Order Comment: Order added by Discern Expert. Result Comment: Spine Specialist lucy kidney disease could be indicated at eGFR's of less than 60 mL/min/1.73m2. Kidney failure is indicated at less than 15 mL/min/1.73m2. Performed By: #### 1 1033738, 6979300, 5717313, 8541466, 3715019, 6044393 ####[facility] [address] [place] [address] C Urineon 06-30-2023 Bacteria identified Cx Nom (U) Normal [facility] Comment on above: Performed By: #### 2 138421 ####[facility] [address] [place] [address] Family Medicine Office/Clini c Noteon 06-28-2023 Family Medicine Office/Clinic Note Normal [facility] Comment on above: Result Comment: Elec tronically Signed By: Татьяна NICHOLS, Roverto Barron\.br\Date and Time Signed: 06/28/23 11:41 EDT Patient Educationon 06-28-20 Patient Education Normal [facility] ABO/Rhon 06-14-2023 ABO/Rh Positive Invalid Interpretation Code [facility] Comment on above: Performed By: #### 2 564315 ####[facility] [address] [place] [address] Auto Diffon 06-14-2023 Basophils/100 WBC (Bld) 0.8 % Normal 0.0-2.0 [facility] Comment on above: Order Comment: Order Added by Discern Expert. Performed By: #### 2 899950, 9778116, 9141329, 3640129, 2450006, 95224919 ####[facility] [address] [place] [address] Basophils/Leukocytes Auto (Bld) [Pure # fraction] 0.0 E9/L Normal 0.0-0.2 [facility] Comment on above: Order Comment: Order Added by Discern Expert. Performed By: #### 2 038581, 3431382, 4352763, 0497782, 6080859, 76161745 ####[facility] [address] [place] [address] Eosinophils/100 WBC (Bld) 1.9 % Normal 0.0-8.0 [facility] Comment on above: Order Comment: Order Added by Discern Expert. Performed By: #### 2 978123, 2699025, 4313395, 2981549, 5127642, 46844441 ####[facility] [address] [place] [address] Eosinophils/Leukocytes Auto (Bld) [Pure # fraction] 0.1 E9/L Normal 0.0-0.5 [facility] Comment on above: Order Comment: Order Added by Discern Expert. Performed By: #### 2 665894, 7416469, 9212014, 5494167, 0574033, 85534900 ####[address] [place] [address] Lymphocytes/100 WBC (Bld) 24.5 % Normal 14.0-50.0 [facility] Comment on above: Order Comment: Order Added by Discern Expert. Performed By: #### 2 453048, 8330308, 2840567, 4401044, 8521769, 86775314 ####[address] [address] Lymphocytes/Leukocytes Auto (Bld) [Pure # fraction] 1.3 E9/L Normal 1.0-4.0 [facility] Comment on above: Order Comment: Order Added by Discern Expert. Performed By: #### 2 036411, 5242875, 2210104, 7952184, 9343327, 12726260 ####[address] [place] [address] Monocytes/100 WBC (Bld) 7.8 % Normal 4.0-14.0 [facility] Comment on above: Order Comment: Order Added by Discern Expert. Performed By: #### 2 838612, 7426993, 9262533, 7906918, 2053883, 19749730 ####[address] [place] [address] Monocytes/Leukocytes Auto (Bld) [Pure # fraction] 0.4 E9/L Normal 0.2-1.0 [facility] Comment on above: Order Comment: Order Added by Discern Expert. Performed By: #### 2 386415, 4452794, 0325206, 7521498, 2331221, 60826728 ####[facility] [address] [place] [address] Neutrophils/100 WBC (Bld) 65.0 % Normal 36.0-75.0 [facility] Comment on above: Order Comment: Order Added by Discern Expert. Performed By: #### 2 955092, 2257100, 7244763, 5309682, 4434445, 87305940 ####[facility] [address] [place] [address] Neutrophils/Leukocytes Auto (Bld) [Pure # fraction] 3.5 E9/L Normal 2.0-7.5 [facility] Comment on above: Order Comment: Order Added by Discern Expert. Performed By: #### 2 560454, 4180345, 2445239, 2965418, 5908044, 68678054 ####[facility] [address] [place] [address] BLOOD BANKOrdered By: Keila Kumar on 06-14-2023 ABO/Rh Interp Positive Invalid Interpretation Code [facility] BB Subsection BMPon 06-14-2023 Creatinine [Mass/Vol] 0.5 mg/dL Normal 0.5-1.3 [facility] Comment on above: Performed By: #### 2 241070, 4478913, 2506378, 5742323, 9799179, 61556843 ####[facility] [address] [place] [address] Urea nitrogen [Mass/Vol] 6 mg/dL Normal 5-21 [facility] Comment on above: Performed By: #### 2 371619, 9808472, 1296168, 1445667, 3707481, 44363061 ####[facility] [address] [place] [address] Urea nitrogen/Creatinine [Mass ratio] 12 No Units Normal 10-20 [facility] Comment on above: Performed By: #### 2 913363, 6568065, 7047082, 8548930, 7192860, 83657400 ####[facility] [address] [place] [address] Anion gap [Moles/Vol] 10 mmol/L Normal 6-16 [facility] Comment on above: Performed By: #### 2 101693, 8796310, 1885181, 2523270, 8686043, 75432101 ####[facility] [address] [place] [address] Calcium [Mass/Vol] 8.7 mg/dL Low 8.9-11.1 [facility] Comment on above: Performed By: #### 2 969567, 4175524, 6205452, 3837670, 9246472, 91193755 ####[facility] [address] [place] [address] Chloride [Moles/Vol] 107 mmol/L Normal 101-111 [facility] Comment on above: Performed By: #### 2 688622, 0965489, 9424463, 0833053, 5419764, 09827535 ####[facility] [address] [place] [address] CO2 [Moles/Vol] 21 mmol/L Normal 21-31 [facility] Comment on above: Performed By: #### 2 410848, 0097011, 3429140, 9209993, 1773622, 53269249 ####[facility] [address] [place] [address] Glucose [Mass/Vol] 77 mg/dL Normal 55-199 [facility] Comment on above: Result Comment: If t his glucose result represents a fasting glucose, interpretation should refer to the following reference range: 55-99 mg/dL Performed By: #### 2 258390, 3888341, 0746290, 6982014, 9578701, 29484398 ####[facility] [address] [place] [address] Potassium [Moles/Vol] 3.8 mmol/L Normal 3.5-5.3 [facility] Comment on above: Performed By: #### 2 301096, 2222707, 1234881, 3099655, 8914758, 44561222 ####[facility] [address] [place] [address] Sodium [Moles/Vol] 134 mmol/L Low 135-145 [facility] Comment on above: Performed By: #### 2 312702, 8785557, 9988291, 4791061, 2523026, 80319174 ####[facility] [address] [place] [address] BhCG Quanton 06-14-2023 HCG.beta subunit Qn 192285 m[IU]/mL High 1-3 [facility] Comment on above: Result Comment: GEST ATIONAL AGE HCG RANGE (mIU/mL) NON- <1-3 0.2-1 WEEKS 5-50 1-2 WEEKS 50-500 2-3 WEEKS 100-5,000 3-4 WEEKS 500-10,000 4-5 WEEKS 1,000-50,000 5-6 WEEKS 10,000-100,000 6-8 WEEKS 15,000-200,000 8-12 WEEKS 10,000-100,000 Performed By: #### 2 434362 ####[facility] [address] [place] [address] CBC w/ Auto Diffon Erythrocyte distribution width (RBC) [Ratio] 12.6 % Normal 10.9-14.2 [facility] Comment on above: Performed By: #### 2 434040, 9048925, 1433129, 0265785, 9214148, 62716344 ####[facility] [address] [place] [address] Hematocrit (Bld) [Volume fraction] 39.9 % Normal 34.0-46.0 [facility] Comment on above: Performed By: #### 2 682547, 3829538, 6616144, 9853630, 5740786, 60901753 ####[facility] [address] [place] [address] Hemoglobin (Bld) [Mass/Vol] 13.4 g/dL Normal 12.0-16.0 [facility] Comment on above: Performed By: #### 2 625382, 1063381, 1730889, 0222006, 0568293, 25298750 ####[facility] [address] [place] [address] MCH (RBC) [Entitic mass] 29.8 pg Normal 27.0-34.0 [facility] Comment on above: Performed By: #### 2 247115, 3109412, 4929122, 8538018, 2916413, 74197529 ####[address] MCHC (RBC) [Mass/Vol] 33.6 g/dL Normal 31.4-36.0 [facility] Comment on above: Performed By: #### 2 678815, 6037062, 8727948, 2182972, 8581680, 68833834 ####[address] [address] MCV (RBC) [Entitic vol] 88.8 fL Normal 80.0-100.0 [facility] Comment on above: Performed By: #### 2 662104, 3612574, 1160556, 5602624, 2375473, 96604013 ####[address] [address] Platelet mean volume (Bld) [Entitic vol] 8.4 fL Normal 6.4-10.8 [facility] Comment on above: Performed By: #### 2 042606, 4354793, 8006746, 5743221, 8512616, 92469124 ####[address] [address] Platelets (Bld) [#/Vol] 225.0 E9/L Normal 150.0-500.0 [facility] Comment on above: Performed By: #### 2 947437, 2223711, 3500921, 4267006, 3577272, 76160212 ####[address] [address] RBC (Bld) [#/Vol] 4.5 E12/L Normal 4.3-5.9 [facility] Comment on above: Performed By: #### 2 385315, 2157069, 5169300, 3400284, 1086634, 88208322 ####[facility] [address] [place] [address] WBC corrected for nucl RBC Auto (Bld) [#/Vol] 5.4 E9/L Normal 4.0-11.0 [facility] Comment on above: Performed By: #### 2 343625, 1471907, 5398187, 8832438, 9268033, 13959399 ####[facility] [address] [place] [address] CHEMISTRYOrdered By: SYSTEM SYSTEM on 06-14-2023 Albumin [...] 130 mL/min/1.73 m2 Normal >=59mL/min/ 1.73 m2 [facility] Chem S Globulin (S) [Mass/Vol] 3.3 g/dL Normal 1.4 - 4.0 gm/dL FT Remisol Glucose [Mass/Vol] 77 mg/dL Normal 55 - 199 mg/dL FT Remisol HCG.beta subunit Qn 522754 m[IU]/mL High 1 - 3 mIU/mL FT [...] Consent for Treatmenton 05-17 Consent for Treatment [id number]:12 7 Normal [facility] ED Clinical Summaryon 2022 ED Clinical Summary Normal [facility] ED Note-Physicianon 06-14-20 ED Note-Physician Normal [facility] Comment on above: Result Comment: Elec tronically Signed By: Jos Ugalde PA-C\.br\Date and Time Signed: 06/14/23 11:58 EDT\.br\Electronically Co-Signed By: Kristian Guillermo DO.br\Date and Time Co-Signed: 06/14/23 17:02 EDT ED Patient Education Noteon 06-14-2023 ED Patient Education Note Normal [facility] ED Patient Summaryon 023 ED Patient Summary Normal [facility] HEMATOLOGYOrdered By: SYSTEM SYSTEM on [...] 88.8 fL Normal 80.0 - 100.0 fL [facility] HemeAutoSS Platelet mean volume (Bld) [Entitic vol] 8.4 fL Normal 6.4 - 10.8 fL [facility] HemeAutoSS Platelets (Bld) [#/Vol] 225.0 E9/L Normal 150.0 - 500.0 E9/L [facility] HemeAutoSS RBC (Bld) [#/Vol] 4.5 E12/L Normal 4.3 - 5.9 E12/L [facility] HemeAutoSS WBC corrected for nucl RBC Auto (Bld) [#/Vol] 5.4 E9/L Normal 4.0 - 11.0 E9/L [facility] HemeAutoSS Hep Func Panelon 06-14-2023 Bilirubin.indirect [Mass or moles/Vol] UTC Abnormal 0.1-0.9 [facility] Comment on above: Result Comment: Resu lt verified by Discern Rule. Performed result UTC (Unable to Calculate) was sent as an Alpha code due the inability to calculate a valid numeric value. Performed By: #### 2 895880, 1814169, 6216403, 5680096, 0685565, 95916399 ####[facility] [address] [place] [address] Albumin [Mass/Vol] 3.5 g/dL Normal 3.3-5.0 [facility] Comment on above: Performed By: #### 2 417663, 5680484, 0651599, 1445686, 3532792, 00229208 ####[facility] [address] [place] [address] Albumin/Globulin (S) [Mass conc ratio] 1.1 Normal 1.1-2.2 [facility] Comment on above: Performed By: #### 2 991160, 3665265, 1000657, 5522544, 8061468, 94322958 ####[facility] [address] [place] [address] ALP [Catalytic activity/Vol] 34 Int._Unit/L Normal 21-98 [facility] Comment on above: Performed By: #### 2 026891, 6199860, 6803265, 5276707, 5263194, 98832396 ####[facility] [address] [place] [address] ALT No additional P-5'-P [Catalytic activity/Vol] 13 Int._Unit/L Normal 6-46 [facility] Comment on above: Performed By: #### 2 644565, 5010810, 1390963, 4351649, 9891876, 73390012 ####[address] [address] AST [Catalytic activity/Vol] 17 Int._Unit/L Normal 5-43 [facility] Comment on above: Performed By: #### 2 552204, 9461934, 1119333, 7159061, 5023875, 92378014 ####[address] [address] Bilirubin [Mass/Vol] 0.6 mg/dL Normal 0.0-1.1 [facility] Comment on above: Performed By: #### 2 429852, 7268277, 7868016, 7373700, 2753107, 27389561 ####[address] [address] Globulin (S) [Mass/Vol] 3.3 g/dL Normal 1.4-4.0 [facility] Comment on above: Performed By: #### 2 909221, 6120818, 4164211, 2867619, 6026192, 79144341 ####[address] [address] Protein [Mass/Vol] 6.8 g/dL Normal 6.0-7.8 [facility] Comment on above: Performed By: #### 2 942599, 7566401, 4592315, 2630857, 6912991, 34634181 ####[address] [place] [address] Bilirubin.direct [Mass/Vol] mg/dL Normal 0.1-0.4 [facility] Comment on above: Performed By: #### 2 408873, 6218622, 1153952, 9169617, 7018145, 28561891 ####[facility] [address] [place] [address] Lipase Levelon 06-14-2023 Lipase [Catalytic activity/Vol] 28 U/L Normal 13-58 [facility] Comment on above: Performed By: #### 2 910051, 7179665, 0841693, 6205138, 5127337, 77285764 ####[address] [address] Progress Note-Nurseon 2022 Progress Note-Nurse MAHESH Hinds verbalize d she was unable to locate patient at this time Normal [facility] UA With Cult Reflexon 2022 Bacteria LM Ql (Urine sed) TRACE Normal Trace [facility] Comment on above: Performed By: #### 1 9712992 ####[address] [address] Bilirubin Ql (U) Negative Normal Negative [facility] Comment on above: Performed By: #### 1 4368779 ####[address] [address] Clarity (U) CLEAR Normal Clear [facility] Comment on above: Performed By: #### 1 7264735 ####[address] [address] Color (U) YELLOW Normal Yellow [facility] Comment on above: Performed By: #### 1 8493119 ####[address] [address] Epithelial cells.squamous LM.HPF (Urine sed) [#/Area] 3-4 Normal 0-2 [facility] Comment on above: Performed By: #### 1 3493247 ####[address] [address] Glucose Test strip (U) [Mass/Vol] Negative Normal Negative [facility] Comment on above: Performed By: #### 1 4866765 ####[address] [place] [address] Hemoglobin Ql (U) Negative Normal Negative [facility] Comment on above: Performed By: #### 1 7210421 ####[address] [address] Ketones (U) [Mass/Vol] Negative Normal Negative [facility] Comment on above: Performed By: #### 1 8045896 ####[address] [address] [place].plasma/[place] .RBC (Bld) [Mass ratio] 0-3 Normal 0-3 [facility] Comment on above: Performed By: #### 1 4664329 ####[address] [address] Mucus Ql (Urine sed) TRACE Normal Fish [facility] Comment on above: Performed By: #### 1 6374410 ####[address] [address] Nitrite Ql (U) Negative Normal Negative [facility] Comment on above: Performed By: #### 1 3558647 ####[address] [address] pH (U) 6.5 [pH] Invalid Interpretation Code 5.0-9.0 [facility] Comment on above: Performed By: #### 1 5888277 ####[address] [address] Protein (U) [Mass/Vol] Negative Normal Negative [facility] Comment on above: Performed By: #### 1 5479912 ####[address] [address] Specific gravity (U) [Rel density] 1.015 Invalid Interpretation Code 1.005-1.030 [facility] Comment on above: Performed By: #### 1 3615476 ####[address] [address] Type of Urine collection method Clean Catch Normal [facility] Comment on above: Performed By: #### 1 3276188 ####[facility] [address] [place] [address] Urobilinogen Qn (U) 0.2 {Rola'U}/dL Normal 0.0-1.0 [facility] Comment on above: Performed By: #### 1 1282205 ####[facility] [address] [place] [address] WBC Auto Ql (U) TRACE Abnormal Negative [facility] Comment on above: Performed By: #### 1 9799800 ####[facility] [address] [place] [address] WBC LM.HPF (Urine sed) [#/Area] 0-5 Normal 0-5 [facility] Comment on above: Performed By: #### 1 0105070 ####[facility] [address] [place] [address] URINALYSISOrdered By: An Mccarty on 06-14-2023 Bacteria [...] AM) Normal Negative [facility] UA Auto SS [place].plasma/[place] .RBC (Bld) [Mass ratio] 0-3 /HPF Normal [...] [facility] UA Auto SS Urobilinogen Qn (U) 0.2521376 {Rola'U}/dL Normal 0.0 - 1.0 EU/dL [facility] UA Auto SS WBC Auto Ql (U) Trace *ABN* (06/14/23 10:13 AM) Invalid Interpretation Code Negative [facility] UA Auto SS WBC LM.HPF (Urine sed) [#/Area] 0-5 /HPF Normal 0-5/HPF [facility] UA Auto SS US 1st Trimesteron 06-14-2023 US 1st Trimester Normal [facility] eGFRon 06-14-2023 GFR/1.73 sq M.predicted among non-blacks MDRD (S/P/Bld) [Vol rate/Area] 130 mL/min/1.73 m2 Normal >=59 [facility] Comment on above: Order Comment: Order added by Discern Expert. Result Comment: Spine Specialist lucy kidney disease could be indicated at eGFR's of less than 60 mL/min/1.73m2. Kidney failure is indicated at less than 15 mL/min/1.73m2. Performed By: #### 2 391408, 6032099, 2262829, 8470532, 0399917, 46102315 ####[facility] [address] [place] [address] CHEMISTRYOrdered By: SYSTEM SYSTEM on 06-12-2023 TSH Qn 3.80 m[IU]/L Normal 0.34 - 5.60 mcIU/mL [facility] Remisol Consent for Treatmenton 05-16 Consent for Treatment [id number]:12 7 Normal [facility] Physician Orderon 06-12-2023 Physician Order [id number]#[id number]:12 7 Normal [facility] TSHon 06-12-2023 TSH Qn 3.80 m[IU]/L Normal 0.34-5.60 [facility] Comment on above: Performed By: #### 2 978583 ####[facility] [address] [place] [address] BhCG Quanton 05-22-2023 HCG.beta subunit Qn 243118 m[IU]/mL High 1-3 [facility] Comment on above: Result Comment: GEST ATIONAL AGE HCG RANGE (mIU/mL) NON- <1-3 0.2-1 WEEKS 5-50 1-2 WEEKS 50-500 2-3 WEEKS 100-5,000 3-4 WEEKS 500-10,000 4-5 WEEKS 1,000-50,000 5-6 WEEKS 10,000-100,000 6-8 WEEKS 15,000-200,000 8-12 WEEKS 10,000-100,000 Performed By: #### 2 693573 ####[facility] [address] [place] [address] Discharge Instructionson Discharge Instructions [id number]:1 27 Normal [facility] ED Clinical Summaryon 2022 ED Clinical Summary Normal [facility] ED Note-Physicianon 05-22-20 23 ED Note-Physician Normal [facility] Comment on above: Result Comment: Elec tronically Signed By: Gopi Rodriguez DObr\Date and Time Signed: 05/21/23 23:17 EDT ED Patient Education Noteon 05-22-2023 ED Patient Education Note Normal [facility] ED Patient Summaryon 023 ED Patient Summary Normal [facility] UA With Cult Reflexon 2022 Bacteria LM Ql (Urine sed) TRACE Normal Trace [facility] Comment on above: Performed By: #### 1 2737189 ####[facility] [address] [place] [address] Bilirubin Ql (U) Negative Normal Negative [facility] Comment on above: Performed By: #### 1 5040797 ####[address] [address] Clarity (U) CLEAR Normal Clear [facility] Comment on above: Performed By: #### 1 3894707 ####[address] [address] Color (U) DARK YELLO Abnormal Yellow [facility] Comment on above: Performed By: #### 1 5147504 ####[address] [address] Epithelial cells.squamous LM.HPF (Urine sed) [#/Area] 0-2 Normal 0-2 [facility] Comment on above: Performed By: #### 1 4595500 ####[address] [address] Glucose Test strip (U) [Mass/Vol] Negative Normal Negative [facility] Comment on above: Performed By: #### 1 7003840 ####[address] [address] Hemoglobin Ql (U) TRACE Abnormal Negative [facility] Comment on above: Performed By: #### 1 1688524 ####[facility] [address] [place] [address] Ketones (U) [Mass/Vol] TRACE Abnormal Negative [facility] Comment on above: Performed By: #### 1 4441124 ####[facility] [address] [place] [address] [place].plasma/[place] .RBC (Bld) [Mass ratio] 4-20 Normal 0-3 [facility] Comment on above: Performed By: #### 1 4768644 ####[facility] [address] [place] [address] Mucus Ql (Urine sed) 1+ Normal Fish [facility] Comment on above: Performed By: #### 1 7774058 ####[facility] [address] [place] [address] Nitrite Ql (U) Negative Normal Negative [facility] Comment on above: Performed By: #### 1 0630196 ####[address] [address] pH (U) 6.0 [pH] Invalid Interpretation Code 5.0-9.0 [facility] Comment on above: Performed By: #### 1 1333106 ####[address] [address] Protein (U) [Mass/Vol] 2+ Abnormal Negative [facility] Comment on above: Performed By: #### 1 1151382 ####[address] [address] Specific gravity (U) [Rel density] >=1.030 Invalid Interpretation Code 1.005-1.030 [facility] Comment on above: Performed By: #### 1 2124116 ####[address] [address] Type of Urine collection method Clean Catch Normal [facility] Comment on above: Performed By: #### 1 0060832 ####[address] [address] Urobilinogen Qn (U) 0.2 {Rola'U}/dL Normal 0.0-1.0 [facility] Comment on above: Performed By: #### 1 4232450 ####[address] [address] WBC Auto Ql (U) Negative Normal Negative [facility] Comment on above: Performed By: #### 1 6974908 ####[address] [address] WBC LM.HPF (Urine sed) [#/Area] 0-5 Normal 0-5 [facility] Comment on above: Performed By: #### 1 4466063 ####[address] [place] [address] US 1st Trimesteron 05-22-2023 US 1st Trimester Normal [facility] Auto Diffon 05-21-2023 Basophils/100 WBC (Bld) 1.0 % Normal 0.0-2.0 [facility] Comment on above: Order Comment: Order Added by Discern Expert. Performed By: #### 2 959424, 5154643, 27756788, 20846975, 2093264, 4033636, 2446248 ####[address] [address] Basophils/Leukocytes Auto (Bld) [Pure # fraction] 0.1 E9/L Normal 0.0-0.2 [facility] Comment on above: Order Comment: Order Added by Discern Expert. Performed By: #### 2 788520, 9184489, 02066717, 04713369, 1127914, 3263625, 7532610 ####[address] [address] Eosinophils/100 WBC (Bld) 1.5 % Normal 0.0-8.0 [facility] Comment on above: Order Comment: Order Added by Discern Expert. Performed By: #### 2 513458, 2280025, 23415638, 75080165, 7724528, 6905528, 8165741 ####[address] [address] Eosinophils/Leukocytes Auto (Bld) [Pure # fraction] 0.1 E9/L Normal 0.0-0.5 [facility] Comment on above: Order Comment: Order Added by Discern Expert. Performed By: #### 2 253463, 2861255, 48525113, 38354692, 9859740, 1478875, 0349096 ####[address] [address] Lymphocytes/100 WBC (Bld) 36.6 % Normal 14.0-50.0 [facility] Comment on above: Order Comment: Order Added by Discern Expert. Performed By: #### 2 291709, 3888497, 22953287, 69739011, 1931753, 2320789, 6712579 ####[address] [place] [address] Lymphocytes/Leukocytes Auto (Bld) [Pure # fraction] 2.5 E9/L Normal 1.0-4.0 [facility] Comment on above: Order Comment: Order Added by Discern Expert. Performed By: #### 2 483507, 9831716, 84974204, 82586187, 5730716, 8624572, 1377886 ####[address] [place] [address] Monocytes/100 WBC (Bld) 8.2 % Normal 4.0-14.0 [facility] Comment on above: Order Comment: Order Added by Discern Expert. Performed By: #### 2 267454, 7265826, 20344013, 20801403, 8759336, 5361033, 2585291 ####[address] [address] Monocytes/Leukocytes Auto (Bld) [Pure # fraction] 0.6 E9/L Normal 0.2-1.0 [facility] Comment on above: Order Comment: Order Added by Discern Expert. Performed By: #### 2 824906, 1837662, 43040303, 62266559, 1278761, 9450073, 9535931 ####[address] [address] Neutrophils/100 WBC (Bld) 52.7 % Normal 36.0-75.0 [facility] Comment on above: Order Comment: Order Added by Discern Expert. Performed By: #### 2 773461, 8143618, 28659487, 58883688, 3523377, 4696044, 9502668 ####[address] [place] [address] Neutrophils/Leukocytes Auto (Bld) [Pure # fraction] 3.6 E9/L Normal 2.0-7.5 [facility] Comment on above: Order Comment: Order Added by Discern Expert. Performed By: #### 2 072442, 4528926, 19607138, 59521358, 3238243, 0750330, 3416854 ####[facility] [address] [place] [address] BMPon 05-21-2023 Creatinine [Mass/Vol] 0.7 mg/dL Normal 0.5-1.3 [facility] Comment on above: Performed By: #### 2 289278, 0721946, 08154408, 99639636, 8010569, 8220892, 9132754 ####[facility] [address] [place] [address] Urea nitrogen [Mass/Vol] 8 mg/dL Normal 5-21 [facility] Comment on above: Performed By: #### 2 164721, 1435507, 64685363, 76311794, 6242156, 1396298, 7918396 ####[facility] [address] [place] [address] Urea nitrogen/Creatinine [Mass ratio] 11 No Units Normal 10-20 [facility] Comment on above: Performed By: #### 2 523292, 8344203, 62114249, 81153149, 8411802, 5716955, 0947458 ####[facility] [address] [place] [address] Anion gap [Moles/Vol] 12 mmol/L Normal 6-16 [facility] Comment on above: Performed By: #### 2 619147, 2671201, 70473702, 28265311, 3779578, 5599117, 0011853 ####[facility] [address] [place] [address] Calcium [Mass/Vol] 9.2 mg/dL Normal 8.9-11.1 [facility] Comment on above: Performed By: #### 2 862751, 9339621, 95325364, 71211372, 9111274, 6524938, 0616081 ####[facility] [address] [place] [address] Chloride [Moles/Vol] 104 mmol/L Normal 101-111 Fish [facility] Comment on above: Performed By: #### 2 186783, 1185664, 46291271, 65282092, 5375494, 0961509, 7211640 ####[facility] [address] [place] [address] CO2 [Moles/Vol] 24 mmol/L Normal 21-31 [facility] Comment on above: Performed By: #### 2 439539, 9839232, 05437481, 04663423, 0089615, 2391605, 8539116 ####[facility] [address] [place] [address] Glucose [Mass/Vol] 87 mg/dL Normal 55-199 [facility] Comment on above: Result Comment: If t his glucose result represents a fasting glucose, interpretation should refer to the following reference range: 55-99 mg/dL Performed By: #### 2 597928, 4313258, 69446828, 50115511, 4189027, 9448650, 7328615 ####[facility] [address] [place] [address] Potassium [Moles/Vol] 3.2 mmol/L Low 3.5-5.3 [facility] Comment on above: Performed By: #### 2 086641, 9442224, 99057503, 84984652, 2911416, 1673433, 5417292 ####[facility] [address] [place] [address] Sodium [Moles/Vol] 137 mmol/L Normal 135-145 [facility] Comment on above: Performed By: #### 2 847283, 8690772, 25476887, 39018732, 4557271, 5048679, 1154225 ####[facility] [address] [place] [address] CBC w/ Auto Diffon 3 Erythrocyte distribution width (RBC) [Ratio] 13.3 % Normal 10.9-14.2 [facility] Comment on above: Performed By: #### 2 667598, 2035589, 88902165, 12713369, 6056492, 7089521, 5436362 ####[address] [place] [address] Hematocrit (Bld) [Volume fraction] 39.0 % Normal 34.0-46.0 [facility] Comment on above: Performed By: #### 2 350912, 2483185, 42343866, 37193939, 2425607, 0445515, 8803498 ####[address] [address] Hemoglobin (Bld) [Mass/Vol] 13.3 g/dL Normal 12.0-16.0 [facility] Comment on above: Performed By: #### 2 991410, 2469875, 98548684, 10959602, 6754420, 7841544, 8439353 ####[address] MCH (RBC) [Entitic mass] 30.3 pg Normal 27.0-34.0 [facility] Comment on above: Performed By: #### 2 607400, 7946893, 13310413, 64894726, 2547180, 3870189, 2336005 ####[address] [address] MCHC (RBC) [Mass/Vol] 34.2 g/dL Normal 31.4-36.0 [facility] Comment on above: Performed By: #### 2 459570, 5699903, 07342498, 62941381, 3875361, 4118620, 0477604 ####[address] [address] MCV (RBC) [Entitic vol] 88.7 fL Normal 80.0-100.0 [facility] Comment on above: Performed By: #### 2 124877, 8995714, 87601621, 60480148, 5570030, 6197882, 8412325 ####[address] [place] [address] Platelet mean volume (Bld) [Entitic vol] 7.8 fL Normal 6.4-10.8 [facility] Comment on above: Performed By: #### 2 767550, 8982938, 85583880, 68353395, 9816650, 9314702, 4126989 ####[address] [address] Platelets (Bld) [#/Vol] 225.0 E9/L Normal 150.0-500.0 [facility] Comment on above: Performed By: #### 2 292740, 1663626, 99342829, 65324731, 0495701, 2984773, 4185800 ####[address] [address] RBC (Bld) [#/Vol] 4.4 E12/L Normal 4.3-5.9 [facility] Comment on above: Performed By: #### 2 205512, 4744841, 96715510, 19797499, 0830346, 8089174, 6092865 ####[address] [address] WBC corrected for nucl RBC Auto (Bld) [#/Vol] 6.8 E9/L Normal 4.0-11.0 [facility] Comment on above: Performed By: #### 2 242482, 8606579, 41136038, 10641155, 7293028, 2626784, 9968851 ####[address] [address] CHEMISTRYOrdered By: SYSTEM SYSTEM on 05-21-2023 HCG.beta subunit Qn 791178 m[IU]/mL High 1 - 3 mIU/mL [facility] [...] 120 mL/min/1.73 m2 Normal >=59mL/min/ 1.73 m2 [facility] Chem S Globulin (S) [Mass/Vol] 3.1 g/dL [...] Remisol Consent for Treatmenton Consent for Treatment [id number]:12 7 Normal [facility] HEMATOLOGYOrdered By: SYSTEM SYSTEM on [...] or moles/Vol] UTC Abnormal 0.1-0.9 [facility] Comment on above: Result Comment: Resu lt verified by Discern Rule. Performed result UTC (Unable to Calculate) was sent as an Alpha code due the inability to calculate a valid numeric value. Performed By: #### 2 312555, 0303063, 90054001, 55201132, 2107812, 4729345, 5410334 ####[facility] [address] [place] [address] Albumin [Mass/Vol] 3.8 g/dL Normal 3.3-5.0 [facility] Comment on above: Performed By: #### 2 083505, 8645937, 29631643, 60101703, 6883694, 2584834, 2819410 ####[facility] [address] [place] [address] Albumin/Globulin (S) [Mass conc ratio] 1.2 Normal 1.1-2.2 [facility] Comment on above: Performed By: #### 2 843883, 5335454, 57719578, 53743447, 1993387, 3779683, 5498171 ####[facility] [address] [place] [address] ALP [Catalytic activity/Vol] 42 Int._Unit/L Normal 21-98 [facility] Comment on above: Performed By: #### 2 745273, 5476491, 57872052, 81245260, 7322674, 2133950, 0494362 ####[address] [place] [address] ALT No additional P-5'-P [Catalytic activity/Vol] 13 Int._Unit/L Normal 6-46 [facility] Comment on above: Performed By: #### 2 912188, 7027344, 19414041, 73094021, 5506348, 4112814, 1360673 ####[address] [address] AST [Catalytic activity/Vol] 14 Int._Unit/L Normal 5-43 [facility] Comment on above: Performed By: #### 2 097794, 8145263, 16716143, 33037061, 0099963, 0075137, 1047150 ####[address] [address] Bilirubin [Mass/Vol] 0.5 mg/dL Normal 0.0-1.1 [facility] Comment on above: Performed By: #### 2 225897, 9408792, 36215392, 55744484, 0748316, 3062749, 5859228 ####[address] [place] [address] Globulin (S) [Mass/Vol] 3.1 g/dL Normal 1.4-4.0 [facility] Comment on above: Performed By: #### 2 468945, 2272337, 56269895, 48329780, 1857803, 7430221, 5699482 ####[facility] [address] [place] [address] Protein [Mass/Vol] 6.9 g/dL Normal 6.0-7.8 [facility] Comment on above: Performed By: #### 2 488250, 0120714, 65653905, 14707178, 8748164, 4975224, 4104143 ####[facility] [address] [place] [address] Bilirubin.direct [Mass/Vol] mg/dL Normal 0.1-0.4 [facility] Comment on above: Performed By: #### 2 132791, 2612813, 83505936, 51815105, 2372649, 7856927, 5683008 ####[facility] [address] [place] [address] Lipase Levelon 05-21-2023 Lipase [Catalytic activity/Vol] 31 U/L Normal 13-58 [facility] Comment on above: Performed By: #### 2 952699, 1488673, 82025715, 85051495, 9061657, 5690438, 7978318 ####[facility] [address] [place] [address] Troponin 0 Hr.on 05-21-2023 Troponin I.cardiac [Mass/Vol] 2.50 pg/mL Low 10.10-27.10 [facility] Comment on above: Result Comment: The 95% CI (Confidence Interval) PPV (Positive Predictive Value) for myocardial infarction in females is 38 pg/mL, in males 51 pg/mL. The results should be used in conjunction with clinical conditions of myocardial infarction.(Access High Sensitivity Troponin I Instructions For Use, Ziggy Marietta, May 2018) Performed By: #### 2 852334, 1024311, 27667894, 02154655, 4648175, 6168174, 0442086 ####[facility] [address] [place] [address] URINALYSISOrdered By: Jose Miguel nelson on 05-21-2023 [...] Interpretation Code Negative [facility] UA Auto SS [place].plasma/[place] .RBC (Bld) [Mass ratio] 4-20 /HPF Normal [...] [facility] UA Auto SS Urobilinogen Qn (U) 0.4526970 {Rola'U}/dL Normal 0.0 - 1.0 EU/dL [facility] UA Auto SS WBC Auto Ql (U) Negative (05/21/23 10:17 PM) Normal Negative [facility] UA Auto SS WBC LM.HPF (Urine sed) [#/Area] 0-5 /HPF Normal 0-5/HPF [facility] UA Auto SS eGFRon 05-21-2023 GFR/1.73 sq M.predicted among non-blacks MDRD (S/P/Bld) [Vol rate/Area] 120 mL/min/1.73 m2 Normal >=59 [facility] Comment on above: Order Comment: Order added by Discern Expert. Result Comment: Spine Specialist lucy kidney disease could be indicated at eGFR's of less than 60 mL/min/1.73m2. Kidney failure is indicated at less than 15 mL/min/1.73m2. Performed By: #### 2 111265, 7344156, 68577517, 53615504, 5427370, 2902676, 8273757 ####[facility] [address] [place] [address] PAP [id number] 05-03-2023 C. trachomatis rRNA MAHAD+probe Ql (Cvx) Negative Invalid Interpretation Code Negative [facility] Comment on above: Performed By: #### 3 [id number] ####[facility] [address] [place] [address] Cytology report Cyto stain Doc (Cvx/Vag) Note Invalid Interpretation Code [facility] Comment on above: Result Comment: TEST S RESULT FLAG UNITS REF RANGE LAB Clinician Provided Cytology InformationSource.............EndocervixNo. of containers..01 ThinPrep VialDIAGNOSIS: 01NEGATIVE FOR INTRAEPITHELIAL LESION OR MALIGNANCY.Specimen adequacy: 01Satisfactory for evaluation. Endocervical and/or squamous metaplasticcells (endocervical component) are present.Performed by: Eliana Shea Supervisor Agency Appointments (ASCP). 01Note: Note 01The Pap smear is [...] Low,>-Panic High,A-Abnormal,AA-Critical Abnormal -----Performed at:[address] [facility] [address] [place] [address]MhjifmJoya Walton MD, Performed By: #### 3 [id number] ####[address] [address] N. gonorrhoeae rRNA MAHAD+probe Ql (Cvx) Negative Invalid Interpretation Code Negative [facility] Comment on above: Result Comment: Perf ormed at: [facility] [address] [id number] MD Anton HinsonPerformed at: =[facility] [address] [id number] MD Anton Hinson Performed By: #### 3 [id number] ####[address] [place] [address] C Urineon 05-02-2023 Bacteria identified Cx Nom (U) Normal [facility] Comment on above: Performed By: #### 2 092800 ####[address] [place] [address] HIV Screen 4th Generation wR fxon 05-01-2023 HIV 1+2 Ab+HIV1 p24 Ag IA Ql Non-Reactive Invalid Interpretation Code Non Reactive [facility] Comment on above: Result Comment: HIV NegativeHIV-1/HIV-2 antibodies and HIV-1 p24 antigen were NOT detected.There is no laboratory evidence of HIV infection.Performed at: [id number] [place], [place] [id number] PhD Caroline [place] Performed By: #### 1 95746422, 81703522, 921779077, 0726635, 2735022 ####[facility] [address] [place] [address] Hep Bs Agon 05-01-2023 HBV surface Ag IA Ql Negative Invalid Interpretation Code Negative [facility] Comment on above: Result Comment: Perf ormed at: [address] [id number] PhD [facility] Performed By: #### 1 30560394, 31819049, 552759703, 5464226, 5508086 ####[facility] [address] [place] [address] RPR with Conf Rfxon 05-01-20 23 Reagin Ab RPR Ql (S) Non-Reactive Invalid Interpretation Code Non Reactive [facility] Comment on above: Result Comment: Perf ormed at: [address] [id number] PhD [facility] Performed By: #### 1 89480182, 97611042, 812981188, 8697946, 9735064 ####[facility] [address] [place] [address] Rubella IgGon 05-01-2023 Rubella virus IgG Qn (S) [IU]/mL Low Immune >0.99 [facility] Comment on above: Result Comment: Non- immune <0.90Equivocal 0.90 - 0.99Immune >0.99Performed at: [address] [id number] PhD [facility] [place] Performed By: #### 1 48872241, 09554409, 535449246, 3452349, 4194888 ####[facility] [address] [place] [address] ABO/Rhon 04-30-2023 ABO/Rh Positive Invalid Interpretation Code [facility] Comment on above: Performed By: #### 2 351585, 43232256 ####[facility] [address] [place] [address] ABSCon 04-30-2023 ABSC Gel Interp Negative Normal [facility] Comment on above: Performed By: #### 2 357834, 95065247 ####[address] [place] [address] BLOOD BANKOrdered By: Diamond Junior on 04-30-2023 ABO/Rh Interp Positive Invalid Interpretation Code [facility] BB Subsection ABSC Gel Interp Negative (04/30/23 9:30 AM) Normal [facility] BB Subsection BhCG Quanton 04-30-2023 [place] [address] m[IU]/mL High 1-3 F [facility] Comment on above: Result Comment: GEST ATIONAL AGE HCG RANGE (mIU/mL) NON- <1-3 0.2-1 WEEKS 5-50 1-2 WEEKS 50-500 2-3 WEEKS 100-5,000 3-4 WEEKS 500-10,000 4-5 WEEKS 1,000-50,000 5-6 WEEKS 10,000-100,000 6-8 WEEKS 15,000-200,000 8-12 WEEKS 10,000-100,000 Performed By: #### 2 189126 ####[facility] [address] [place] [address] CBC w/Indiceson 04-30-2023 Erythrocyte distribution width (RBC) [Ratio] 13.7 % Normal 10.9-14.2 [facility] Comment on above: Performed By: #### 1 87251653, 47473202, 774801823, 9321391, 0146833 ####[facility] [address] [place] [address] Hematocrit (Bld) [Volume fraction] 40.7 % Normal 34.0-46.0 [facility] Comment on above: Performed By: #### 1 06874305, 99480802, 352921515, 7207624, 5159216 ####[facility] [address] [place] [address] Hemoglobin (Bld) [Mass/Vol] 13.8 g/dL Normal 12.0-16.0 [facility] Comment on above: Performed By: #### 1 57157101, 05793233, 682233454, 7647532, 5739913 ####[address] [address] MCH (RBC) [Entitic mass] 30.5 pg Normal 27.0-34.0 [facility] Comment on above: Performed By: #### 1 65336403, 99698885, 730231075, 3195667, 4568965 ####[address] [address] MCHC (RBC) [Mass/Vol] 33.9 g/dL Normal 31.4-36.0 [facility] Comment on above: Performed By: #### 1 43218819, 98891116, 604262513, 2442109, 2184056 ####[address] [address] MCV (RBC) [Entitic vol] 89.9 fL Normal 80.0-100.0 [facility] Comment on above: Performed By: #### 1 60689494, 09931926, 067509559, 6308783, 5147039 ####[address] [place] [address] Platelet mean volume (Bld) [Entitic vol] 8.2 fL Normal 6.4-10.8 [facility] Comment on above: Performed By: #### 1 00034880, 01230270, 037402014, 9413492, 2664945 ####[address] [place] [address] Platelets (Bld) [#/Vol] 279.0 E9/L Normal 150.0-500.0 [facility] Comment on above: Performed By: #### 1 97674049, 49902660, 805698929, 9628978, 6432505 ####[facility] [address] [place] [address] RBC (Bld) [#/Vol] 4.5 E12/L Normal 4.3-5.9 [facility] Comment on above: Performed By: #### 1 26293118, 18649766, 056217537, 5238264, 6250808 ####[facility] [address] [place] [address] WBC corrected for nucl RBC Auto (Bld) [#/Vol] 5.8 E9/L Normal 4.0-11.0 [facility] Comment on above: Performed By: #### 1 85435409, 95408319, 582809380, 1730005, 0533873 ####[facility] [address] [place] [address] CHEMISTRYOrdered By: INTTRA SYSTEM on 04-30-2023 [place] [address] m[IU]/mL High 1 - 3 mIU/mL [facility] Remisol Consent for Treatmenton 04-14 Consent for Treatment [id number]#[id number]:12 7 Normal [facility] HEMATOLOGYOrdered By: Temi Romero on [...] 33.9 g/dL Normal 31.4 - 36.0 gm/dL [facility] HemeAutoSS MCV (RBC) [Entitic vol] 89.9 fL Normal 80.0 - 100.0 fL [facility] HemeAutoSS Platelet mean volume (Bld) [Entitic vol] 8.2 fL Normal 6.4 - 10.8 fL [facility] HemeAutoSS Platelets (Bld) [#/Vol] 279.0 E9/L Normal 150.0 - 500.0 E9/L [facility] HemeAutoSS RBC (Bld) [#/Vol] 4.5 E12/L Normal 4.3 - 5.9 E12/L [facility] HemeAutoSS WBC corrected for nucl RBC Auto (Bld) [#/Vol] 5.8 E9/L Normal 4.0 - 11.0 E9/L [facility] HemeAutoSS PAP [id number] 04-30-2023 Collection Technique BRUSH-SPATULA Normal F [facility] Comment on above: Performed By: #### 3 [id number] ####[facility] [address] [place] [address] Gynecological Body Site ENDOCERVIX Normal [facility] Comment on above: Performed By: #### 3 [id number] ####[facility] [address] [place] [address] Physician Orderon 04-30-2023 Physician Order [id number]#1.00CD:1 27 Normal [facility] Physician Order [id number]#1.00CD:1 27 Normal [facility] BhCG Quanton 04-26-2023 [place] [address] m[IU]/mL High 1-3 F [facility] Comment on above: Result Comment: GEST ATIONAL AGE HCG RANGE (mIU/mL) NON- <1-3 0.2-1 WEEKS 5-50 1-2 WEEKS 50-500 2-3 WEEKS 100-5,000 3-4 WEEKS 500-10,000 4-5 WEEKS 1,000-50,000 5-6 WEEKS 10,000-100,000 6-8 WEEKS 15,000-200,000 8-12 WEEKS 10,000-100,000 Performed By: #### 2 777710 ####[facility] [address] [place] [address] CHEMISTRYOrdered By: SYSTEM SYSTEM on 04-26-2023 [place] [address] m[IU]/mL High 1 - 3 mIU/mL [facility] Remisol Consent for Treatmenton 04-14 Consent for Treatment [id number]#[id number]:12 7 Normal [facility] Discharge Instructionson Discharge Instructions [id number]#[id number]:1 27 Normal [facility] ED Clinical Summaryon 2022 ED Clinical Summary Normal [facility] ED Note-Physicianon 04-26-20 ED Note-Physician Normal [facility] Comment on above: Result Comment: Elec tronically Signed By: Jos Ugalde PA-C\.br\Date and Time Signed: 04/26/23 10:59 EDT\.br\Electronically Co-Signed By: Laura Noel M.D.\.br\Date and Time Co-Signed: 04/26/23 11:01 EDT ED Patient Education Noteon 04-26-2023 ED Patient Education Note Normal [facility] ED Patient Summaryon 023 ED Patient Summary Normal [facility] UA With Cult Reflexon 2022 Bilirubin Ql (U) Negative Normal Negative [facility] Comment on above: Performed By: #### 1 5852514 ####[facility] [address] [place] [address] Clarity (U) CLEAR Normal Clear [facility] Comment on above: Performed By: #### 1 3210253 ####[facility] [address] [place] [address] Color (U) YELLOW Normal Yellow [facility] Comment on above: Performed By: #### 1 9489066 ####[facility] [address] [place] [address] Crystals LM Ql (Urine sed) Present Normal [facility] Comment on above: Performed By: #### 1 8459827 ####[address] [address] Epithelial cells.squamous LM.HPF (Urine sed) [#/Area] 0-2 Normal 0-2 [facility] Comment on above: Performed By: #### 1 1578468 ####[address] [address] Glucose Test strip (U) [Mass/Vol] Negative Normal Negative [facility] Comment on above: Performed By: #### 1 6579887 ####[address] [address] Hemoglobin Ql (U) Negative Normal Negative [facility] Comment on above: Performed By: #### 1 6240937 ####[address] [address] Ketones (U) [Mass/Vol] Negative Normal Negative [facility] Comment on above: Performed By: #### 1 3765716 ####[address] [address] [place].plasma/[place] .RBC (Bld) [Mass ratio] 0-3 Normal 0-3 [facility] Comment on above: Performed By: #### 1 7999549 ####[address] [address] Mucus Ql (Urine sed) 2+ Normal Fish [facility] Comment on above: Performed By: #### 1 2072979 ####[address] [address] Nitrite Ql (U) Negative Normal Negative [facility] Comment on above: Performed By: #### 1 0961900 ####[address] [address] pH (U) 8.5 [pH] Invalid Interpretation Code 5.0-9.0 [facility] Comment on above: Performed By: #### 1 8780614 ####[facility] [address] [place] [address] Protein (U) [Mass/Vol] Negative Normal Negative Fi [facility] Comment on above: Performed By: #### 1 8639255 ####[facility] [address] [place] [address] Specific gravity (U) [Rel density] 1.015 Invalid Interpretation Code 1.005-1.030 [facility] Comment on above: Performed By: #### 1 0667180 ####[facility] [address] [place] [address] Type of Urine collection method Clean Catch Normal [facility] Comment on above: Performed By: #### 1 0817628 ####[address] [address] Urobilinogen Qn (U) 1.0 {Rola'U}/dL Normal 0.0-1.0 [facility] Comment on above: Performed By: #### 1 8563015 ####[facility] [address] [place] [address] WBC Auto Ql (U) Negative Normal Negative [facility] Comment on above: Performed By: #### 1 7519670 ####[facility] [address] [place] [address] WBC LM.HPF (Urine sed) [#/Area] 0-5 Normal 0-5 [facility] Comment on above: Performed By: #### 1 7593292 ####[facility] [address] [place] [address] URINALYSISOrdered By: An Lassiter on 04-26-2023 Bilirubin [...] AM) Normal Negative [facility] UA Auto SS [place].plasma/[place] .RBC (Bld) [Mass ratio] 0-3 /HPF Normal [...] Desc Clean Catch (04/26/23 9:15 AM) Normal [facility] UA Auto SS Urobilinogen Qn (U) 1.6246034 {Rola'U}/dL Normal 0.0 - 1.0 EU/dL FT UA Auto SS WBC Auto Ql (U) Negative (04/26/23 9:15 AM) Normal Negative [facility] UA Auto SS WBC LM.HPF (Urine sed) [#/Area] 0-5 /HPF Normal 0-5/HPF [facility] UA Auto SS US 1st Trimesteron 04-26-2023 US 1st Trimester Normal [facility] US Transvaginalon 04-26-2023 US Transvaginal Normal [facility] Coding Summary.on 02-02-2023 Coding Summary. Normal [facility] Auto Diffon 01-31-2023 Basophils/100 WBC (Bld) 0.3 % Normal 0.0-2.0 [facility] Comment on above: Order Comment: Order Added by Discern Expert. Performed By: #### 2 877102, 9942444, 09235198, 4037629 ####[address] [address] Basophils/Leukocytes Auto (Bld) [Pure # fraction] 0.0 E9/L Normal 0.0-0.2 [facility] Comment on above: Order Comment: Order Added by Discern Expert. Performed By: #### 2 307541, 6687173, 75345984, 6898754 ####[address] [address] Eosinophils/100 WBC (Bld) 2.8 % Normal 0.0-8.0 [facility] Comment on above: Order Comment: Order Added by Discern Expert. Performed By: #### 2 567059, 8742754, 04697886, 3882947 ####[address] [address] Eosinophils/Leukocytes Auto (Bld) [Pure # fraction] 0.1 E9/L Normal 0.0-0.5 [facility] Comment on above: Order Comment: Order Added by Discern Expert. Performed By: #### 2 527212, 8590740, 93845838, 3893217 ####[address] [address] Lymphocytes/100 WBC (Bld) 30.0 % Normal 14.0-50.0 [facility] Comment on above: Order Comment: Order Added by Discern Expert. Performed By: #### 2 912190, 5330957, 78611187, 5774813 ####[address] [address] Lymphocytes/Leukocytes Auto (Bld) [Pure # fraction] 1.5 E9/L Normal 1.0-4.0 [facility] Comment on above: Order Comment: Order Added by Discern Expert. Performed By: #### 2 083648, 1600881, 85701813, 8814542 ####[address] [place] [address] Monocytes/100 WBC (Bld) 7.0 % Normal 4.0-14.0 [facility] Comment on above: Order Comment: Order Added by Discern Expert. Performed By: #### 2 331679, 5448657, 61891310, 5124578 ####[address] [address] Monocytes/Leukocytes Auto (Bld) [Pure # fraction] 0.4 E9/L Normal 0.2-1.0 [facility] Comment on above: Order Comment: Order Added by Discern Expert. Performed By: #### 2 434804, 1148272, 73756380, 9388814 ####[address] [address] Neutrophils/100 WBC (Bld) 59.9 % Normal 36.0-75.0 [facility] Comment on above: Order Comment: Order Added by Discern Expert. Performed By: #### 2 068616, 9380620, 83289802, 2470566 ####[address] [address] Neutrophils/Leukocytes Auto (Bld) [Pure # fraction] 3.1 E9/L Normal 2.0-7.5 [facility] Comment on above: Order Comment: Order Added by Discern Expert. Performed By: #### 2 207947, 1100997, 48717007, 1424991 ####[address] [address] B hCG Qualon 01-31-2023 Beta hCG Ql Negative Normal [facility] Comment on above: Performed By: #### 2 3225620, 82414511 ####[address] [address] BMPon 01-31-2023 Creatinine [Mass/Vol] 0.8 mg/dL Normal 0.5-1.3 [facility] Comment on above: Performed By: #### 2 152605, 2211612, 61012549, 8074782 ####[facility] [address] [place] [address] Urea nitrogen [Mass/Vol] 9 mg/dL Normal 5-21 [facility] Comment on above: Performed By: #### 2 191314, 2922519, 06500801, 3432447 ####[facility] [address] [place] [address] Urea nitrogen/Creatinine [Mass ratio] 11 No Units Normal 10-20 [facility] Comment on above: Performed By: #### 2 842823, 4666593, 70127395, 0588274 ####[facility] [address] [place] [address] Anion gap [Moles/Vol] 12 mmol/L Normal 6-16 [facility] Comment on above: Performed By: #### 2 430742, 4078026, 54631975, 0382961 ####[facility] [address] [place] [address] Calcium [Mass/Vol] 9.1 mg/dL Normal 8.9-11.1 [facility] Comment on above: Performed By: #### 2 262409, 6980391, 14429110, 3819188 ####[facility] [address] [place] [address] Chloride [Moles/Vol] 104 mmol/L Normal 101-111 [facility] Comment on above: Performed By: #### 2 395017, 8243871, 17041222, 8247174 ####[facility] [address] [place] [address] CO2 [Moles/Vol] 23 mmol/L Normal 21-31 [facility] Comment on above: Performed By: #### 2 120165, 5955252, 78062015, 0706717 ####[facility] [address] [place] [address] Glucose [Mass/Vol] 84 mg/dL Normal 55-199 [facility] Comment on above: Result Comment: If t his glucose result represents a fasting glucose, interpretation should refer to the following reference range: 55-99 mg/dL Performed By: #### 2 534962, 2533872, 79823464, 8950670 ####[facility] [address] [place] [address] Potassium [Moles/Vol] 3.5 mmol/L Normal 3.5-5.3 [facility] Comment on above: Performed By: #### 2 544439, 4779758, 15264252, 1932124 ####[facility] [address] [place] [address] Sodium [Moles/Vol] 135 mmol/L Normal 135-145 [facility] Comment on above: Performed By: #### 2 312260, 1818162, 34368643, 3238055 ####[address] [address] CBC w/ Auto Diffon Erythrocyte distribution width (RBC) [Ratio] 12.9 % Normal 10.9-14.2 [facility] Comment on above: Performed By: #### 2 945500, 5692623, 62773482, 4452634 ####[address] [place] [address] Hematocrit (Bld) [Volume fraction] 46.4 % High 34.0-46.0 [facility] Comment on above: Performed By: #### 2 164769, 8717595, 58173449, 6482685 ####[address] [place] [address] Hemoglobin (Bld) [Mass/Vol] 15.0 g/dL Normal 12.0-16.0 [facility] [facility] Comment on above: Performed By: #### 2 756459, [id number], [id number], 9104508 ####[facility] [address] [place] [address] MCH (RBC) [Entitic mass] 28.6 pg Normal 27.0-34.0 [facility] Comment on above: Performed By: #### 2 679279, 1787205, 18988691, 4184262 ####[address] [place] [address] MCHC (RBC) [Mass/Vol] 32.3 g/dL Normal 31.4-36.0 [facility] Comment on above: Performed By: #### 2 613193, 0501544, [id number], 4448822 ####[address] MCV (RBC) [Entitic vol] 88.5 fL Normal 80.0-100.0 [facility] Comment on above: Performed By: #### 2 089789, 0561554, 56688260, 9752847 ####[address] Platelet mean volume (Bld) [Entitic vol] 7.9 fL Normal 6.4-10.8 [facility] Comment on above: Performed By: #### 2 878535, 7492382, 49375067, 8458837 ####[address] Platelets (Bld) [#/Vol] 300.0 E9/L Normal 150.0-500.0 [facility] Comment on above: Performed By: #### 2 626847, 9495217, 08555937, 8061823 ####[address] [address] RBC (Bld) [#/Vol] 5.2 E12/L Normal 4.3-5.9 [facility] Comment on above: Performed By: #### 2 855684, 3619797, 34597815, 0200555 ####[address] [address] WBC corrected for nucl RBC Auto (Bld) [#/Vol] 5.1 E9/L Normal 4.0-11.0 [facility] Comment on above: Performed By: #### 2 565104, 1295062, 11796325, 3061221 ####[address] [place] [address] CHEMISTRYOrdered By: SYSTEM SYSTEM on 01-31-2023 Anion [...] rate/Area] mL/min/1.73 m2 Normal >=59mL/min/ 1.73 m2 [facility] Chem S Glucose [Mass/Vol] 84 mg/dL Normal [...] Headon 01-31-2023 CTA Head Normal [facility] Consent for Treatmenton 01-13 Consent for Treatment [id number]#1.00CD:12 7 Normal [facility] Discharge Instructionson Discharge Instructions [id number]#1.00CD:1 27 Normal [facility] ED Clinical Summaryon 2022 ED Clinical Summary Normal [facility] ED Note-Physicianon 02-01-20 ED Note-Physician Normal [facility] Comment on above: Result Comment: Elec tronically Signed By: Kristian Guillermo DO.br\Date and Time Signed: 01/31/23 14:00 EDT ED Patient Education Noteon 01-31-2023 ED Patient Education Note Normal [facility] ED Patient Summaryon 023 ED Patient Summary Normal [facility] HEMATOLOGYOrdered By: SYSTEM SYSTEM on [...] 3.1 E9/L Normal 2.0 - 7.5 E9/L [facility] HemeAutoSS HEMATOLOGYOrdered By: Janet Reyes on 01-31-2023 [...] [Time] 31.3 second(s) Normal 25.1-36.5 [facility] Comment on above: Result Comment: [...] the same coagulation reagent and instrumentation as [facility]. Currently there are no coagulation studies available worldwide for children to 14 days, and no normal ranges. Heparin therapeutic range (represented by Anti-Factor Xa activity of 0.2 - 0.4 U/mL) corresponds to PTT of 56.6 - 109.0 sec. Performed By: #### 2 [id number], [id number] ####[facility] [address] [facility] [place] [address] INR Coag (PPP) [Relative time] 1.1 {INR} Invalid Interpretation Code [facility] Comment on above: Result Comment: INR results are specifically intended to assess patients stabilized on long-term Anticoagulation therapy suggested INR?s ?Less Intensive Anticoagulation? 2.0 ? 3.0Conventional Range 3.0 ? 4.5 Performed By: #### 2 [id number], [id number] ####[facility] [address] [facility] [address] PT Coag (PPP) [Time] 12.3 second(s) Normal 9.4-12.5 [facility] Comment on above: Result Comment: [...] the same coagulation reagent and instrumentation as [facility]. Currently there are no coagulation studies available worldwide for children to 14 days, and no normal ranges. Performed By: #### 2 2610111, [id number] ####[facility] [address] [place] [address] Pre-Arrival Noteon 3 Pre-Arrival Note Normal [facility] SEROLOGYOrdered By: Nova Mccarty on 01-31-2023 Beta hCG Ql Negative (01/31/23 10:14 AM) Normal [facility] Man Sero eGFRon 01-31-2023 GFR/1.73 sq M.predicted among blacks MDRD (S/P/Bld) [Vol rate/Area] mL/min/{1.73_m2} Normal >=59 [facility] Comment on above: Order Comment: Order added by Discern Expert. Result Comment: eGFR is race adjusted. AA=. Performed By: #### 2 443162, 0728741, 00283124, 1687782 ####[facility] [address] [place] [address] GFR/1.73 sq M.predicted among non-blacks MDRD (S/P/Bld) [Vol rate/Area] mL/min/{1.73_m2} Normal >=59 [facility] Comment on above: Order Comment: Order added by Discern Expert. Result Comment: Spine Specialist lucy kidney disease could be indicated at eGFR's of less than 60 mL/min/1.73m2. Kidney failure is indicated at less than 15 mL/min/1.73m2. Performed By: #### 2 726589, 3759648, [id number], 9936384 ####[facility] [address] [place] [address] Nursing Assessmenton 023 Nursing Assessment [id number]#1.00CD:1 27 Normal [facility] Coding Summary.on 10-02-2022 Coding Summary. Normal [facility] Coding Summary. Normal [facility] Delivery Summaryon 2 Delivery Summary Normal [facility] Comment on above: Result Comment: Elec tronically Signed By: Fabiana MARION, Luis Carlos Byrd\.br\Date and Time Signed: 09/29/22 09:25 EST General Message Officeon General Message Office Normal [facility] Insurance Correspondence Off iceon 09-28-2022 Insurance Correspondence Office [id number]#1.00CD:1 27 Normal [facility] Discharge Instructionson Discharge Instructions [id number]#1.00CD:12 7 Normal [facility] Inpatient Clinical Summaryon 09-27-2022 Inpatient Clinical Summary Normal [facility] Inpatient Patient Summaryon 09-27-2022 Inpatient Patient Summary Normal [facility] CBC w/Indiceson 09-26-2022 Erythrocyte distribution width (RBC) [Ratio] 13.1 % Normal 10.9-14.2 [facility] Comment on above: Performed By: #### 2 771633 ####[facility] [address] [place] [address] Hematocrit (Bld) [Volume fraction] 32.1 % Low 34.0-46.0 [facility] Comment on above: Performed By: #### 2 815582 ####[facility] [address] [place] [address] Hemoglobin (Bld) [Mass/Vol] 11.1 g/dL Low 12.0-16.0 [facility] Comment on above: Performed By: #### 2 007592 ####[facility] [address] [place] [address] MCH (RBC) [Entitic mass] 30.9 pg Normal 27.0-34.0 [facility] Comment on above: Performed By: #### 2 819474 ####[facility] [address] [place] [address] MCHC (RBC) [Mass/Vol] 34.5 g/dL Normal 31.4-36.0 [facility] Comment on above: Performed By: #### 2 429010 ####[facility] [address] [place] [address] MCV (RBC) [Entitic vol] 89.7 fL Normal 80.0-100.0 [facility] Comment on above: Performed By: #### 2 994272 ####[facility] [address] [place] [address] Platelet mean volume (Bld) [Entitic vol] 10.1 fL Normal 6.4-10.8 [facility] Comment on above: Performed By: #### 2 632069 ####[facility] [address] [place] [address] Platelets (Bld) [#/Vol] 204.0 E9/L Normal 150.0-500.0 [facility] Comment on above: Performed By: #### 2 732880 ####[address] [address] RBC (Bld) [#/Vol] 3.6 E12/L Low 4.3-5.9 [facility] Comment on above: Performed By: #### 2 789308 ####[address] [address] WBC corrected for nucl RBC Auto (Bld) [#/Vol] 23.2 E9/L High 4.0-11.0 [facility] Comment on above: Performed By: #### 2 336220 ####[address] [address] Nursing Assessmenton 022 Nursing Assessment [id number]#1.00CD:12 7 Normal [facility] Progress Note-Physicianon Progress Note-Physician [facility] Comment on above: Result Comment: Elec tronically Signed By: Fabiana MARION, Luis Carlos Byrd\.[facility]ina\Date and Time Signed: 09/26/22 08:19 EST Coding Summary.on 09-25-2022 Coding Summary. Normal [facility] Coding Summary. Normal [facility] Consenton 09-25-2022 Consent [id number]#1.00CD:1 27 Normal [facility] Consent for Anesthesiaon Consent for Anesthesia [id number]#1.00CD:12 7 Normal [facility] Discharge Instructionson Discharge Instructions [id number]#1.00CD:1 27 Normal [facility] Help Me Grow Referralon 09-14 Help Me Grow Referral [id number]#1.00CD:12 7 Normal [facility] Recordson Records [id number]#1.00CD:12 7 Normal [facility] Progress Note-Physicianon Progress Note-Physician [facility] Comment on above: Result Comment: Elec tronically Signed By: Jimmy Corcoran Jr., DO\.br\Date and Time Signed: 09/25/22 08:31 EST Progress Note-Physician Normal [facility] Comment on above: Result Comment: Elec tronically Signed By: Jimmy Corcoran Jr., DO\.br\Date and Time Signed: 09/25/22 08:31 EST UA With Cult Reflexon 2021 Bilirubin Ql (U) Negative Normal Negative [facility] Comment on above: Order Comment: Urina ry Catheter Insertion triggered Urinalysis With Culture Reflex order by discern. Performed By: #### 1 [id number] ####[facility] [address] [place] [address] Clarity (U) CLEAR Normal Clear [facility] Comment on above: Order Comment: Urina ry Catheter Insertion triggered Urinalysis With Culture Reflex order by discern. Performed By: #### 1 2433515 ####[facility] [address] [place] [address] Color (U) YELLOW Normal Yellow [facility] Comment on above: Order Comment: Urina ry Catheter Insertion triggered Urinalysis With Culture Reflex order by discern. Performed By: #### 1 2595141 ####[facility] [address] [place] [address] Epithelial cells.squamous LM.HPF (Urine sed) [#/Area] 0-2 Normal 0-2 [facility] Comment on above: Order Comment: Urina ry Catheter Insertion triggered Urinalysis With Culture Reflex order by discern. Performed By: #### 1 3551314 ####[facility] [address] [place] [address] Glucose Test strip (U) [Mass/Vol] Negative Normal Negative [facility] Comment on above: Order Comment: Urina ry Catheter Insertion triggered Urinalysis With Culture Reflex order by discern. Performed By: #### 1 [id number] ####[facility] [address] [place] [address] Hemoglobin Ql (U) Negative Normal Negative [facility] Comment on above: Order Comment: Urina ry Catheter Insertion triggered Urinalysis With Culture Reflex order by discern. Performed By: #### 1 7412462 ####[facility] [address] [place] [address] Ketones (U) [Mass/Vol] Negative Normal Negative [facility] Comment on above: Order Comment: Urina ry Catheter Insertion triggered Urinalysis With Culture Reflex order by discern. Performed By: #### 1 4556529 ####[facility] [address] [place] [address] [place].plasma/[place] .RBC (Bld) [Mass ratio] 0-3 Normal 0-3 [facility] Comment on above: Order Comment: Urina ry Catheter Insertion triggered Urinalysis With Culture Reflex order by discern. Performed By: #### 1 7583456 ####[facility] [address] [place] [address] Nitrite Ql (U) Negative Normal Negative [facility] Comment on above: Order Comment: Urina ry Catheter Insertion triggered Urinalysis With Culture Reflex order by discern. Performed By: #### 1 1531645 ####[facility] [address] [place] [address] pH (U) 7.0 [pH] Invalid Interpretation Code 5.0-9.0 [facility] Comment on above: Order Comment: Urina ry Catheter Insertion triggered Urinalysis With Culture Reflex order by discern. Performed By: #### 1 1034541 ####[address] [address] Protein (U) [Mass/Vol] Negative Normal Negative [facility] Comment on above: Order Comment: Urina ry Catheter Insertion triggered Urinalysis With Culture Reflex order by discern. Performed By: #### 1 2467444 ####[place] [address] Specific gravity (U) [Rel density] <=1.005 Invalid Interpretation Code 1.005-1.030 [facility] Comment on above: Order Comment: Urina ry Catheter Insertion triggered Urinalysis With Culture Reflex order by discern. Performed By: #### 1 7212040 ####[place] [address] Type of Urine collection method Vyas Normal [facility] Comment on above: Order Comment: Urina ry Catheter Insertion triggered Urinalysis With Culture Reflex order by discern. Performed By: #### 1 6874524 ####[place] [address] Urobilinogen Qn (U) 0.2 {Rola'U}/dL Normal 0.0-1.0 [facility] Comment on above: Order Comment: Urina ry Catheter Insertion triggered Urinalysis With Culture Reflex order by discern. Performed By: #### 1 6930746 ####[address] WBC Auto Ql (U) Negative Normal Negative [facility] Comment on above: Order Comment: Urina ry Catheter Insertion triggered Urinalysis With Culture Reflex order by discern. Performed By: #### 1 9045272 ####[address] WBC LM.HPF (Urine sed) [#/Area] 0-5 Normal 0-5 [facility] Comment on above: Order Comment: Urina ry Catheter Insertion triggered Urinalysis With Culture Reflex order by discern. Performed By: #### 1 6081888 ####[address] [place] [address] Bilirubin Ql (U) Negative Normal Negative [facility] Comment on above: Performed By: #### 1 3336970 ####[facility] [address] [place] [address] Clarity (U) CLEAR Normal Clear [facility] Comment on above: Performed By: #### 1 9248186 ####[facility] [address] [place] [address] Color (U) YELLOW Normal Yellow [facility] Comment on above: Performed By: #### 1 1224948 ####[address] [address] Epithelial cells.squamous LM.HPF (Urine sed) [#/Area] 0-2 Normal 0-2 [facility] Comment on above: Performed By: #### 1 [id number] ####[facility] [address] [place] [address] Glucose Test strip (U) [Mass/Vol] Negative Normal Negative [facility] Comment on above: Performed By: #### 1 6266214 ####[facility] [address] [place] [address] Hemoglobin Ql (U) Negative Normal Negative [facility] Comment on above: Performed By: #### 1 4706538 ####[facility] [address] [place] [address] Ketones (U) [Mass/Vol] Negative Normal Negative [facility] Comment on above: Performed By: #### 1 3009356 ####[facility] [address] [place] [address] [place].plasma/[place] .RBC (Bld) [Mass ratio] 0-3 Normal 0-3 [facility] Comment on above: Performed By: #### 1 2222069 ####[facility] [address] [place] [address] Nitrite Ql (U) Negative Normal Negative [facility] Comment on above: Performed By: #### 1 8209416 ####[address] [address] pH (U) 6.0 [pH] Invalid Interpretation Code 5.0-9.0 [facility] Comment on above: Performed By: #### 1 [id number] ####[place] [address] Protein (U) [Mass/Vol] Negative Normal Negative [facility] Comment on above: Performed By: #### 1 7330964 ####[place] [address] Specific gravity (U) [Rel density] <=1.005 Invalid Interpretation Code 1.005-1.030 [facility] Comment on above: Performed By: #### 1 2376085 ####[place] [address] Type of Urine collection method Clean Catch Normal [facility] Comment on above: Performed By: #### 1 2897438 ####[place] [address] Urobilinogen Qn (U) 0.2 {Rola'U}/dL Normal 0.0-1.0 [facility] Comment on above: Performed By: #### 1 7064445 ####[address] WBC Auto Ql (U) Negative Normal Negative [facility] Comment on above: Performed By: #### 1 7851066 ####[address] WBC LM.HPF (Urine sed) [#/Area] 0-5 Normal 0-5 [facility] Comment on above: Performed By: #### 1 0715348 ####[address] [address] Vaccinationson 09-25-2022 Vaccinations [id number]#1.00CD:1 27 Normal [facility] Vaccinations [id number]#1.00CD:1 27 Normal [facility] ABO/Rhon 09-24-2022 ABO/Rh Positive Invalid Interpretation Code [facility] Comment on above: Performed By: #### 1 4765015, 69017643, 74969276, 8608445 ####[facility] [address] [place] [address] ABO/Rh History Checkon 09-24 ABO/Rh History Check Verified Hx Blood Type Normal [facility] Comment on above: Performed By: #### 1 6083904, 89644648, 46787896, 4254543 ####[facility] [address] [place] [address] ABSCon 09-24-2022 ABSC Gel Interp Negative Normal [facility] Comment on above: Performed By: #### 1 2652127, 53085470, 75569921, 1671663 ####[address] [address] Blood Bank ID#on 09-24-2022 BBID# [id number] Invalid Interpretation Code [facility] Comment on above: Performed By: #### 1 8067969, 25351722, 82133593, 7623703 ####[address] [place] [address] CBC w/Indiceson 09-24-2022 Erythrocyte distribution width (RBC) [Ratio] 13.0 % Normal 10.9-14.2 [facility] Comment on above: Performed By: #### 2 935944 ####[address] [address] Hematocrit (Bld) [Volume fraction] 38.0 % Normal 34.0-46.0 [facility] Comment on above: Performed By: #### 2 524286 ####[address] [place] [address] Hemoglobin (Bld) [Mass/Vol] 12.8 g/dL Normal 12.0-16.0 [facility] Comment on above: Performed By: #### 2 456550 ####[place] [address] [address] MCH (RBC) [Entitic mass] 31.3 pg Normal 27.0-34.0 [facility] Comment on above: Performed By: #### 2 305671 ####[address] [address] MCHC (RBC) [Mass/Vol] 33.7 g/dL Normal 31.4-36.0 [facility] Comment on above: Performed By: #### 2 962214 ####[address] [address] MCV (RBC) [Entitic vol] 92.9 fL Normal 80.0-100.0 [facility] Comment on above: Performed By: #### 2 120740 ####[address] [address] Platelet mean volume (Bld) [Entitic vol] 9.8 fL Normal 6.4-10.8 [facility] Comment on above: Performed By: #### 2 951972 ####[address] [address] Platelets (Bld) [#/Vol] 238.0 E9/L Normal 150.0-500.0 [facility] Comment on above: Performed By: #### 2 741453 ####[address] [address] RBC (Bld) [#/Vol] 4.1 E12/L Low 4.3-5.9 [facility] Comment on above: Performed By: #### 2 714450 ####[address] [address] WBC corrected for nucl RBC Auto (Bld) [#/Vol] 12.8 E9/L High 4.0-11.0 [facility] Comment on above: Performed By: #### 2 349846 ####[address] [address] Consent for Treatmenton 09-14 Consent for Treatment [id number]#1.00CD:12 7 [facility] Consent for Treatment [id number]#1.00CD:1 27 [facility] Consent for Treatmenton Consent for Treatment [id number]#1.00CD:12 7 [facility] Discharge Instructionson Discharge Instructions [id number]#1.00CD:12 7 [facility] Inpatient Clinical Summaryon 09-22-2022 Inpatient Clinical Summary [facility] Inpatient Patient Summaryon 09-22-2022 Inpatient Patient Summary [facility] Insurance Correspondence Off iceon 09-22-2022 Insurance Correspondence Office [id number]#1.00CD: 127 [facility] Nursing Assessmenton 022 Nursing Assessment [id number]#1.00CD:1 27 [facility] Nursing Assessment [id number]#1.00CD:12 7 [facility] Discharge Instructionson Discharge Instructions [id number]#1.00CD:127 [facility] Inpatient Clinical Summaryon 09-20-2022 Inpatient Clinical Summary [facility] Inpatient Patient Summaryon 09-20-2022 Inpatient Patient Summary [facility] Insurance Correspondence Off iceon 09-20-2022 Insurance Correspondence Office [id number]#1.00CD:127 [facility] Consent for Treatmenton Consent for Treatment [id number]#1.00CD:12 7 [facility] Discharge Instructionson Discharge Instructions [id number]#1.00CD:1 27 Normal [facility] Inpatient Clinical Summaryon 09-19-2022 Inpatient Clinical Summary Normal [facility] Inpatient Patient Summaryon 09-19-2022 Inpatient Patient Summary Normal [facility] Insurance Correspondenceon 1 11-20-2021 Insurance Correspondence [id number]#1.00CD:1 27 Normal [facility] [facility] UA With Cult Reflexon 2021 Bilirubin Ql (U) Negative Normal Negative [facility] Comment on above: Performed By: #### 1 [id number] ####[facility] [address] [place] [address] Clarity (U) CLEAR Normal Clear [facility] Comment on above: Performed By: #### 1 [id number] ####[facility] [address] [place] [address] Color (U) YELLOW Normal Yellow [facility] Comment on above: Performed By: #### 1 [id number] ####[facility] [address] [place] [address] Epithelial cells.squamous LM.HPF (Urine sed) [#/Area] 0-2 Normal 0-2 [facility] Comment on above: Performed By: #### 1 [id number] ####[facility] [address] [place] [address] Glucose Test strip (U) [Mass/Vol] Negative Normal Negative [facility] Comment on above: Performed By: #### 1 6042036 ####[facility] [address] [place] [address] Hemoglobin Ql (U) Negative Normal Negative [facility] Comment on above: Performed By: #### 1 4886229 ####[facility] [address] [place] [address] Ketones (U) [Mass/Vol] Negative Normal Negative [facility] Comment on above: Performed By: #### 1 [id number] ####[address] [address] [place].plasma/[place] .RBC (Bld) [Mass ratio] 0-3 Normal 0-3 [facility] Comment on above: Performed By: #### 1 [id number] ####[address] [address] Nitrite Ql (U) Negative Normal Negative [facility] Comment on above: Performed By: #### 1 0194870 ####[address] [address] pH (U) 7.0 [pH] Invalid Interpretation Code 5.0-9.0 [facility] Comment on above: Performed By: #### 1 4871045 ####[address] [address] Protein (U) [Mass/Vol] Negative Normal Negative [facility] Comment on above: Performed By: #### 1 2997034 ####[address] [address] Specific gravity (U) [Rel density] <=1.005 Invalid Interpretation Code 1.005-1.030 [facility] Comment on above: Performed By: #### 1 [id number] ####[address] [address] Type of Urine collection method Clean Catch Normal [facility] Comment on above: Performed By: #### 1 8060513 ####[address] [address] Urobilinogen Qn (U) 0.2 {Rola'U}/dL Normal 0.0-1.0 [facility] Comment on above: Performed By: #### 1 4411520 ####[address] [address] WBC Auto Ql (U) Negative Normal Negative [facility] Comment on above: Performed By: #### 1 6423670 ####[address] [address] WBC LM.HPF (Urine sed) [#/Area] 0-5 Normal 0-5 [facility] Comment on above: Performed By: #### 1 8738330 ####[facility] [address] [place] [address] URINALYSISOrdered By: Jeanette Castle on 09-19-2022 Bilirubin [...] AM) Normal Negative [facility] UA Auto SS [place].plasma/[place] .RBC (Bld) [Mass ratio] 0-3 /HPF Normal [...] [facility] UA Auto SS Urobilinogen Qn (U) 0.3646337 {Rola'U}/dL Normal 0.0 - 1.0 EU/dL [facility] UA Auto SS WBC Auto Ql (U) Negative (09/19/22 1:44 AM) Normal Negative [facility] UA Auto SS WBC LM.HPF (Urine sed) [#/Area] 0-5 /HPF Normal 0-5/HPF [facility] [place]A Auto SS Coding Summary.on 09-18-2022 Coding Summary. Normal [facility] Nursing Assessmenton Nursing Assessment [id number]#1.00CD:12 7 Normal [facility] Coding Summary.on 09-15-2022 Coding Summary. Normal [facility] Coding Summary.on 09-14-2022 Coding Summary. Normal [facility] Consent for Treatmenton Consent for Treatment [id number]#1.00CD:12 7 [facility] Consent for Treatment [id number]#1.00CD:12 7 Normal [facility] Discharge Instructionson Discharge Instructions [id number]#1.00CD:12 7 Normal [facility] Inpatient Clinical Summaryon 09-14-2022 Inpatient Clinical Summary Normal [facility] Inpatient Patient Summaryon 09-14-2022 Inpatient Patient Summary [facility] Insurance Correspondence Off iceon 09-14-2022 Insurance Correspondence Office [id number]#1.00CD:12 7 Normal [facility] Nursing Assessmenton Nursing Assessment [id number]#1.00CD:1 27 Normal [facility] UA With Cult Reflexon 2021 Bacteria LM Ql (Urine sed) TRACE Normal Trace [facility] Comment on above: Performed By: #### 1 [id number] ####[facility] [address] [place] [address] Bilirubin Ql (U) Negative Normal Negative [facility] Comment on above: Performed By: #### 1 6697418 ####[facility] [address] [place] [address] Clarity (U) CLEAR Normal Clear [facility] Comment on above: Performed By: #### 1 [id number] ####[facility] [address] [place] [address] Color (U) YELLOW Normal Yellow [facility] Comment on above: Performed By: #### 1 5992415 ####[facility] [address] [place] [address] Crystals LM Ql (Urine sed) Present Normal [facility] Comment on above: Performed By: #### 1 1746710 ####[address] [address] Epithelial cells.squamous LM.HPF (Urine sed) [#/Area] 0-2 Normal 0-2 [facility] Comment on above: Performed By: #### 1 6776917 ####[facility] [address] [place] [address] Glucose Test strip (U) [Mass/Vol] Negative Normal Negative [facility] Comment on above: Performed By: #### 1 3537571 ####[facility] [address] [place] [address] Hemoglobin Ql (U) Negative Normal Negative [facility] Comment on above: Performed By: #### 1 0192319 ####[facility] [address] [place] [address] Ketones (U) [Mass/Vol] Negative Normal Negative [facility] Comment on above: Performed By: #### 1 2477463 ####[facility] [address] [place] [address] [place].plasma/[place] .RBC (Bld) [Mass ratio] 0-3 Normal 0-3 [facility] Comment on above: Performed By: #### 1 [id number] ####[facility] [address] [place] [address] Mucus Ql (Urine sed) TRACE Normal [facility] Comment on above: Performed By: #### 1 5893351 ####Longoria David [address] [address] Nitrite Ql (U) Negative Normal Negative [facility] Comment on above: Performed By: #### 1 8186331 ####[address] [address] pH (U) 6.0 [pH] Invalid Interpretation Code 5.0-9.0 [facility] Comment on above: Performed By: #### 1 0996046 ####[place] [id number] Protein (U) [Mass/Vol] Negative Normal Negative [facility] Comment on above: Performed By: #### 1 5654482 ####[place] [address] Specific gravity (U) [Rel density] <=1.005 Invalid Interpretation Code 1.005-1.030 [facility] Comment on above: Performed By: #### 1 5230072 ####[place] [address] Type of Urine collection method Random Urine Normal [facility] Comment on above: Performed By: #### 1 7738263 ####[place] [address] Urobilinogen Qn (U) 0.2 {Rola'U}/dL Normal 0.0-1.0 [facility] Comment on above: Performed By: #### 1 6145636 ####[place] [address] WBC Auto Ql (U) TRACE Abnormal Negative [facility] Comment on above: Performed By: #### 1 6521446 ####[address] [address] WBC LM.HPF (Urine sed) [#/Area] 0-5 Normal 0-5 [facility] Comment on above: Performed By: #### 1 8951886 ####[address] [address] URINALYSISOrdered By: An Lassiter on 09-14-2022 Bacteria [...] AM) Normal Negative [facility] UA Auto SS [place].plasma/[place] .RBC (Bld) [Mass ratio] 0-3 /HPF Normal [...] [facility] UA Auto SS Urobilinogen Qn (U) 0.7719230 {Rola'U}/dL Normal 0.0 - 1.0 EU/dL [facility] UA Auto SS WBC Auto Ql (U) Trace *ABN* (09/14/22 9:25 AM) Invalid Interpretation Code Negative [facility] UA Auto SS WBC LM.HPF (Urine sed) [#/Area] 0-5 /HPF Normal 0-5/HPF [facility] UA Auto SS Coding Summary.on 09-12-2022 Coding Summary. Normal [facility] Consent for Treatmenton 08-16 Consent for Treatment [id number]#1.00CD:12 7 Normal [facility] Discharge Instructionson Discharge Instructions [id number]#1.00CD:12 7 [facility] Discharge Instructions [id number]#1.00CD:1 27 Normal [facility] Inpatient Clinical Summaryon 09-12-2022 Inpatient Clinical Summary Normal [facility] Inpatient Patient Summaryon 09-12-2022 Inpatient Patient Summary Normal [facility] Insurance Correspondenceon 11-12-2021 Insurance Correspondence [id number]#1.00CD:12 7 [facility] Insurance Correspondence Off iceon 09-12-2022 Insurance Correspondence Office [id number]#1.00CD:1 27 Normal [facility] Nursing Assessmenton 022 Nursing Assessment [id number]#1.00CD:1 27 Normal [facility] UA With Cult Reflexon 2021 Bilirubin Ql (U) Negative Normal Negative [facility] Comment on above: Performed By: #### 1 [id number] ####[facility] [address] [place] [address] Clarity (U) CLEAR Normal Clear [facility] Comment on above: Performed By: #### 1 5906140 ####[facility] [address] [place] [address] Color (U) YELLOW Normal Yellow [facility] Comment on above: Performed By: #### 1 [id number] ####[facility] [address] [place] [address] Crystals LM Ql (Urine sed) Present Normal [facility] Comment on above: Performed By: #### 1 [id number] ####[place] [address] [place] [address] Epithelial cells.squamous LM.HPF (Urine sed) [#/Area] 3-4 Normal 0-2 [facility] Comment on above: Performed By: #### 1 2497089 ####[facility] [address] [place] [address] Glucose Test strip (U) [Mass/Vol] Negative Normal Negative [facility] Comment on above: Performed By: #### 1 [id number] ####[address] [address] Hemoglobin Ql (U) Negative Normal Negative [facility] Comment on above: Performed By: #### 1 [id number] ####[facility] [address] [place] [address] Ketones (U) [Mass/Vol] Negative Normal Negative [facility] Comment on above: Performed By: #### 1 0541022 ####[facility] [address] [place] [address] [place].plasma/[place] .RBC (Bld) [Mass ratio] 0-3 Normal 0-3 [facility] Comment on above: Performed By: #### 1 6061822 ####[facility] [address] [place] [address] Nitrite Ql (U) Negative Normal Negative [facility] Comment on above: Performed By: #### 1 [id number] ####[place] [address] [place] [address] pH (U) 6.0 [pH] Invalid Interpretation Code 5.0-9.0 [facility] Comment on above: Performed By: #### 1 [id number] ####[facility] [address] [place] [address] Protein (U) [Mass/Vol] Negative Normal Negative [facility] Comment on above: Performed By: #### 1 9624985 ####[facility] [address] [place] [address] Specific gravity (U) [Rel density] 1.010 Invalid Interpretation Code 1.005-1.030 [facility] Comment on above: Performed By: #### 1 5849312 ####[facility] [address] [place] [address] Type of Urine collection method Clean Catch Normal [facility] Comment on above: Performed By: #### 1 [id number] ####[facility] [address] [place] [address] Urobilinogen Qn (U) 0.2 {Rola'U}/dL Normal 0.0-1.0 [facility] Comment on above: Performed By: #### 1 2934625 ####[place] [address] WBC Auto Ql (U) Negative Normal Negative [facility] Comment on above: Performed By: #### 1 1579781 ####[facility] [address] [place] [address] WBC LM.HPF (Urine sed) [#/Area] 0-5 Normal 0-5 [facility] Comment on above: Performed By: #### 1 2716585 ####[facility] [address] [place], [place] [address] URINALYSISOrdered By: Jose Miguel nelson on 09-12-2022 [...] PM) Normal Negative [facility] UA Auto SS [place].plasma/[place] .RBC (Bld) [Mass ratio] 0-3 /HPF Normal [...] [facility] UA Auto SS Urobilinogen Qn (U) 0.3380507 {Rola'U}/dL Normal 0.0 - 1.0 EU/dL [facility] UA Auto SS WBC Auto Ql (U) Negative (09/12/22 8:15 PM) Normal Negative [facility] UA Auto SS WBC LM.HPF (Urine sed) [#/Area] 0-5 /HPF Normal 0-5/HPF [facility] UA Auto SS Coding Summary.on 09-11-2022 Coding Summary. Normal [facility] Consent for Treatmenton 08-16 Consent for Treatment [id number]#1.00CD:12 7 Normal [facility] Discharge Instructionson Discharge Instructions [id number]#1.00CD:1 27 Normal [facility] Inpatient Clinical Summaryon 09-08-2022 Inpatient Clinical Summary Normal [facility] Inpatient Patient Summaryon 09-08-2022 Inpatient Patient Summary Normal [facility] Coding Summary.on 09-06-2022 Coding Summary. Normal [facility] Discharge Instructionson Discharge Instructions [id number]#1.00CD:1 27 Normal [facility] ED Clinical Summaryon 2021 ED Clinical Summary Normal [facility] ED Note-Nursingon 09-06-2022 ED Note-Nursing pt given d/c instruc tions and educated on importance of follow up. pt educated on new medications. pt verbalized understanding of instructions and readiness for d/c. pt walked self ambulatory to waiting room in stable condition Normal [facility] ED Patient Education Noteon 09-06-2022 ED Patient Education Note Normal [facility] ED Patient Summaryon 022 ED Patient Summary Normal [facility] XR Chest Single Viewon 09-06 XR Chest Single View Normal [facility] Auto Diffon 09-05-2022 Basophils/100 WBC (Bld) 1.0 % Normal 0.0-2.0 [facility] Comment on above: Order Comment: Order Added by Discern Expert. Performed By: #### 2 156816, 17612924, 13166172, 4886658, 75414059, 40841380, 1111718 ####[facility] [address] [place] [address] Basophils/Leukocytes Auto (Bld) [Pure # fraction] 0.1 E9/L Normal 0.0-0.2 [facility] Comment on above: Order Comment: Order Added by Discern Expert. Performed By: #### 2 891377, 86077908, 74929752, 4765807, 55996867, 53179734, 9175654 ####[facility] [address] [place] [address] Eosinophils/100 WBC (Bld) 1.4 % Normal 0.0-8.0 [facility] Comment on above: Order Comment: Order Added by Discern Expert. Performed By: #### 2 627171, 45942234, 97082323, 5453512, 21905587, 44989280, 1657550 ####[facility] [address] [place] [address] Eosinophils/Leukocytes Auto (Bld) [Pure # fraction] 0.2 E9/L Normal 0.0-0.5 [facility] Comment on above: Order Comment: Order Added by Discern Expert. Performed By: #### 2 631305, 24829677, 58551696, 8605497, 08758225, 57773463, 4642527 ####[place] [address] [place] [address] Lymphocytes/100 WBC (Bld) 18.8 % Normal 14.0-50.0 [facility] Comment on above: Order Comment: Order Added by Discern Expert. Performed By: #### 2 787003, 31013188, 59509693, 2858411, 74279678, 41669462, 0825641 ####[address] [address] Lymphocytes/Leukocytes Auto (Bld) [Pure # fraction] 2.0 E9/L Normal 1.0-4.0 [facility] Comment on above: Order Comment: Order Added by Discern Expert. Performed By: #### 2 061914, 74878891, 70895198, 2118056, 07085976, 51164170, 9355070 ####[place] [address] [place] [address] Monocytes/100 WBC (Bld) 6.8 % Normal 4.0-14.0 [facility] Comment on above: Order Comment: Order Added by Discern Expert. Performed By: #### 2 423225, 43238694, 45869347, 7314993, 12328430, 51669153, 0520411 ####[address] [address] Monocytes/Leukocytes Auto (Bld) [Pure # fraction] 0.7 E9/L Normal 0.2-1.0 [facility] Comment on above: Order Comment: Order Added by Discern Expert. Performed By: #### 2 010476, 97625463, 00884871, 5839479, 54554164, 51256543, 3657979 ####[facility] [address] [place] [address] Neutrophils/100 WBC (Bld) 72.0 % Normal 36.0-75.0 [facility] Comment on above: Order Comment: Order Added by Discern Expert. Performed By: #### 2 978117, 06365834, 68998515, 4020236, 93029611, 71776376, 4448954 ####[facility] [address] [place] [address] Neutrophils/Leukocytes Auto (Bld) [Pure # fraction] 7.8 E9/L High 2.0-7.5 [facility] Comment on above: Order Comment: Order Added by Discern Expert. Performed By: #### 2 352453, 42395526, 86403008, 7657026, 04376437, 90667470, 4465296 ####[facility] [address] [place] [address] BMPon 09-05-2022 Creatinine [Mass/Vol] 0.7 mg/dL Normal 0.5-1.3 [facility] Comment on above: Performed By: #### 2 350213, 96872602, 98226305, 6763858, 05821635, 91367107, 4834355 ####[facility] [address] [place] [address] Urea nitrogen [Mass/Vol] 7 mg/dL Normal 5-21 [facility] Comment on above: Performed By: #### 2 275430, 56523279, 91354122, 0280695, 33010861, 19853569, 2088680 ####[facility] [address] [place] [address] Urea nitrogen/Creatinine [Mass ratio] 10 No Units Normal 10-20 [facility] Comment on above: Performed By: #### 2 340148, 31242738, 12621360, 6360333, 87144665, 92611509, 3799999 ####[facility] [address] [place] [address] Anion gap [Moles/Vol] 10 mmol/L Normal 6-16 [facility] Comment on above: Performed By: #### 2 198446, 62478408, 85405827, 4810985, 86313103, 73256411, 6732772 ####[facility] [address] [place] [address] Calcium [Mass/Vol] 8.8 mg/dL Low 8.9-11.1 [facility] Comment on above: Performed By: #### 2 583016, 50297062, 46757092, 5444262, 80512790, 18371569, 7948306 ####[facility] [address] [place] [address] Chloride [Moles/Vol] 102 mmol/L Normal 101-111 [facility] Comment on above: Performed By: #### 2 819024, 72043868, 53845628, 1667751, 10458446, 88608351, 4860861 ####[facility] [address] [place] [address] CO2 [Moles/Vol] 22 mmol/L Normal 21-31 [facility] Comment on above: Performed By: #### 2 759545, 03351552, 71497491, 7707429, 22173852, 70820215, 1644965 ####[facility] [address] [place] [address] Glucose [Mass/Vol] 87 mg/dL Normal 55-199 [facility] Comment on above: Result Comment: If t his glucose result represents a fasting glucose, interpretation should refer to the following reference range: 55-99 mg/dL Performed By: #### 2 647601, 63217030, 46732443, 9976075, 02999902, 77987879, 2743418 ####[facility] [address] [place] [address] Potassium [Moles/Vol] 3.3 mmol/L Low 3.5-5.3 [facility] Comment on above: Performed By: #### 2 012912, 99544900, 55372124, 7312206, 06951848, 80933913, 0308587 ####[facility] [address] [place] [address] Sodium [Moles/Vol] 131 mmol/L Low 135-145 [facility] Comment on above: Performed By: #### 2 781897, 01795855, 51983922, 6823947, 09517911, 60953315, 0204709 ####[facility] [address] [place] [address] BNPon 09-05-2022 Int Ctr BNP Pass Normal [facility] Comment on above: Performed By: #### 2 914256, 58262917, 36816911, 1429256, 10933021, 70078914, 1834554 ####[facility] [address] [place] [address] Natriuretic peptide B (Bld) [Mass/Vol] 8 pg/mL Normal 5-80 [facility] Comment on above: Performed By: #### 2 032134, 56497052, 71862490, 7952412, 48175501, 90795889, 5557272 ####[facility] [address] [place] [address] CBC w/ Auto Diffon Erythrocyte distribution width (RBC) [Ratio] 12.7 % Normal 10.9-14.2 [facility] Comment on above: Performed By: #### 2 045232, 07421582, 26137180, 8721693, 90373753, 90248514, 3969679 ####[facility] [address] [place] [address] Hematocrit (Bld) [Volume fraction] 34.2 % Normal 34.0-46.0 [facility] Comment on above: Performed By: #### 2 476185, 93551590, 14698460, 3902841, 30760176, 35165995, 8096583 ####[address] [address] Hemoglobin (Bld) [Mass/Vol] 12.3 g/dL Normal 12.0-16.0 [facility] Comment on above: Performed By: #### 2 317127, 17901802, 64087653, 7615676, 25591062, 26990050, 2333772 ####[address] [address] MCH (RBC) [Entitic mass] 31.8 pg Normal 27.0-34.0 [facility] Comment on above: Performed By: #### 2 320931, 79327072, 17463885, 2763867, 40368639, 14206414, 0229951 ####[address] [address] MCHC (RBC) [Mass/Vol] 35.9 g/dL Normal 31.4-36.0 [facility] Comment on above: Performed By: #### 2 740639, [id number], 73848626, 1907850, 44467682, 24590868, 2665869 ####[address] [address] MCV (RBC) [Entitic vol] 88.7 fL Normal 80.0-100.0 [facility] Comment on above: Performed By: #### 2 387003, 40988623, 44480805, 8086982, 99413795, 41607922, 9591552 ####[address] [address] Platelet mean volume (Bld) [Entitic vol] 9.8 fL Normal 6.4-10.8 [facility] Comment on above: Performed By: #### 2 975733, 50195442, 01182326, 3977796, 05029634, 14788907, 0669824 ####[address] [address] Platelets (Bld) [#/Vol] 215.0 E9/L Normal 150.0-500.0 [facility] Comment on above: Performed By: #### 2 454577, 97801605, 61503174, 3176756, 31872971, 35694229, 0944078 ####[facility] [address] [place] [address] RBC (Bld) [#/Vol] 3.9 E12/L Low 4.3-5.9 [facility] Comment on above: Performed By: #### 2 998623, 72100917, 43170019, 1177638, 72164189, 44952651, 1549437 ####[facility] [address] [place] [address] WBC corrected for nucl RBC Auto (Bld) [#/Vol] 10.9 E9/L Normal 4.0-11.0 [facility] Comment on above: Result Comment: Slid e reviewed by ts. Performed By: #### 2 702998, 77980344, 73482282, 0525587, 72052104, 11137570, 7925595 ####[facility] [address] [place] [address] CHEMISTRYOrdered By: SYSTEM SYSTEM on 09-05-2022 Anion gap [Moles/Vol] 10 mmol/L Normal 6 - 16 mEq/L [facility] Remisol Calcium [Mass/Vol] 8.8 mg/dL Low 8.9 [...] rate/Area] mL/min/1.73 m2 Normal >=59mL/min/ 1.73 m2 [facility] Chem S Glucose [Mass/Vol] 87 mg/dL Normal 55 - 199 mg/dL [facility] Remisol Potassium [Moles/Vol] 3.3 mmol/L Low 3.5 - 5.3 mmol/L [facility] Remisol Sodium [Moles/Vol] 131 mmol/L Low 135 - 145 mmol/L [facility] Remisol Troponin I.cardiac [Mass/Vol] 4.70 pg/mL Low 10.10 - 27.10 pg/mL [facility] Remisol Urea nitrogen [Mass/Vol] 7 mg/dL Normal 5 - 21 mg/dL [facility] Remisol Urea nitrogen/Creatinine [Mass ratio] 10 mg/mg Normal 10 - 20 [facility] Remisol CHEMISTRYOrdered By: Temi hayden on 09-05-2022 Natriuretic peptide B (Bld) [Mass/Vol] 8 pg/mL Normal 5 - 80 pg/mL [facility] HemeManSS COAGULATIONOrdered By: Yamile Li on 09-05-2022 aPTT Coag (PPP) [Time] 27.1 s Normal 25.1 - 36.5 second(s) [facility] Auto Coag INR Coag (PPP) [Relative time] 0.9 {INR} Invalid Interpretation Code [facility] Auto Coag PT Coag (PPP) [Time] 10.3 s Normal 9.4 - 1 2.5 second(s) [facility] Auto Coag Consent for Treatmenton 08-16 Consent for Treatment [id number]#[id number]:12 7 Normal [facility] ED Note-Nursingon 09-05-2022 ED Note-Nursing Normal [facility] ED Note-Physicianon 09-05-20 ED Note-Physician Normal [facility] Comment on above: Result Comment: Elec tronically Signed By: Gopi Rodriguez DO\brandi\Date and Time Signed: 09/05/22 21:46 EST Group B Strep by PCRon 08-16 Group B Strep colonization by PCR Negative Normal Negative [facility] Comment on above: Performed By: #### 4 [id number] ####[facility] [address] [place] [address] HEMATOLOGYOrdered By: SYSTEM SYSTEM on 09-05-2022 Basophils/100 [...] [Time] 27.1 second(s) Normal 25.1-36.5 [facility] Comment on above: Result Comment: [...] the same coagulation reagent and instrumentation as [facility]. Currently there are no coagulation studies available worldwide for children to 14 days, and no normal ranges. Heparin therapeutic range (represented by Anti-Factor Xa activity of 0.2 - 0.4 U/mL) corresponds to PTT of 56.6 - 109.0 sec. Performed By: #### 2 364286, 66885674, 70683705, 4110397, 11152016, 27538843, 6226938 ####[facility] [address] [place] [address] INR Coag (PPP) [Relative time] 0.9 {INR} Invalid Interpretation Code [facility] Comment on above: Result Comment: INR results are specifically intended to assess patients stabilized on long-term Anticoagulation therapy suggested INR?s ?Less Intensive Anticoagulation? 2.0 ? 3.0Conventional Range 3.0 ? 4.5 Performed By: #### 2 335406, 30868955, 83746489, 1531253, 23256463, 89487202, 7435353 ####[facility] [address] [place] [address] PT Coag (PPP) [Time] 10.3 second(s) Normal 9.4-12.5 [facility] Comment on above: Result Comment: [...] the same coagulation reagent and instrumentation as [facility]. Currently there are no coagulation studies available worldwide for children to 14 days, and no normal ranges. Performed By: #### 2 064672, 17602900, 41906792, 4502808, 97434073, 97445408, 2611394 ####[facility] [address] [place] [address] Rapid COVID Antigen ([facility])on 09-05-2022 Rapid COV Int NEG Ctl Pass Normal [facility] Comment on above: Performed By: #### 2 [id number] ####[facility] [address] [place] [address] Rapid COV Int POS Ctl Pass Normal [facility] Comment on above: Performed By: #### 2 [id number] ####[address] [place] [address] SARS-CoV+SARS-CoV-2 (COVID-19) Ag IA.rapid Ql (Resp) Detected Abnormal Not Detected [facility] Comment on above: Result Comment: Resu lts Called To Berna Cook RN/ER By AGNIESZKA And Read Back For Confirmation On 09/05/2022 21:14:20 ESTResults Verified By Repeat AnalysisThe Octro? System for Rapid Detection of SARS-CoV-2 is [...] or revoked sooner. Performed By: #### 2 [id number] ####[place] [address] ADMITTED TO INTENSIVE CARE UNIT FOR CONDITION OF INTEREST:FIND:PT: NO Normal [facility] Comment on above: Performed By: #### 2 [id number] ####[place] [address] EMPLOYED IN A HEALTHCARE SETTING:FIND:PT: NO Normal [facility] Comment on above: Performed By: #### 2 [id number] ####[place] [address] FIRST TEST FOR CONDITION OF INTEREST:FIND:PT: YES Normal [facility] Comment on above: Performed By: #### 2 [id number] ####[place] [address] HAS SYMPTOMS RELATED TO CONDITION OF INTEREST:FIND:PT: YES Normal [facility] Comment on above: Performed By: #### 2 [id number] ####[place] [address] HOSPITALIZED FOR CONDITION OF INTEREST:FIND:PT: NO Normal [facility] Comment on above: Performed By: #### 2 [id number] ####[place] [address] STATUS:FIND:PT: NO Normal [facility] Comment on above: Performed By: #### 2 [id number] ####[address] [address] RESIDES IN A CONGREGATE CARE SETTING:FIND:PT: NO Normal [facility] Comment on above: Performed By: #### 2 [id number] ####[address] [place] [address] Troponin 0 Hr.on 09-05-2022 Troponin I.cardiac [Mass/Vol] 4.70 pg/mL Low 10.10-27.10 [facility] Comment on above: Result Comment: The 95% CI (Confidence Interval) PPV (Positive Predictive Value) for myocardial infarction in females is 38 pg/mL, in males 51 pg/mL. The results should be used in conjunction with clinical conditions of myocardial infarction.(Access High Sensitivity Troponin I Instructions For Use, [employer] May 2018) Performed By: #### 2 876295, 25944957, 90523765, 8555763, 20687783, 83810815, 5123028 ####[address] [place] [address] eGFRon 09-05-2022 GFR/1.73 sq M.predicted among blacks MDRD (S/P/Bld) [Vol rate/Area] mL/min/{1.73_m2} Normal >=59 [facility] Comment on above: Order Comment: Order added by Discern Expert. Result Comment: eGFR is race adjusted. AA=. Performed By: #### 2 395185, 60588361, 96843793, 6928816, 05219457, 38380494, 0930790 ####[facility] [address] [place] [address] GFR/1.73 sq M.predicted among non-blacks MDRD (S/P/Bld) [Vol rate/Area] mL/min/{1.73_m2} Normal >=59 [facility] Comment on above: Order Comment: Order added by Discern Expert. Result Comment: Spine Specialist lucy kidney disease could be indicated at eGFR's of less than 60 mL/min/1.73m2. Kidney failure is indicated at less than 15 mL/min/1.73m2. Performed By: #### 2 400948, 48985110, 31841707, 9576828, 80717859, 51271914, 8850033 ####[address] [place] [address] Coding Summary.on 09-04-2022 Coding Summary. Normal [facility] Nursing Assessmenton 022 Nursing Assessment [id number]:1 27 Normal [facility] Physician Orderon 09-04-2022 Physician Order [id number]#[id number]:1 Normal [facility] ABO/Rhon 08-31-2022 ABO/Rh Positive Invalid Interpretation Code [facility] Comment on above: Performed By: #### 1 0115476, 1795880, 78203532, 07077321 ####[address] [address] ABO/Rh History Checkon 08-31 ABO/Rh History Check Verified Hx Blood Type Normal [facility] Comment on above: Performed By: #### 1 9771511, 8854822, 13835840, 36540362 ####[address] [address] ABSCon 08-31-2022 ABSC Gel Interp Negative Normal [facility] Comment on above: Performed By: #### 1 4306664, 5676463, 16695728, 83159031 ####[address] [place] [address] BUNon 08-31-2022 Urea nitrogen [Mass/Vol] 8 mg/dL Normal 03-04 [facility] Comment on above: Performed By: #### 2 404489, 9974794, 42636156, 3238803, 79317178, 3473210, 5847722, 0725817, 0551477, 1520324, 93709098 ####[address] [address] Blood Bank ID#on 08-31-2022 BBID# [id number] Invalid Interpretation Code [facility] Comment on above: Performed By: #### 1 1477017, 5855268, 96157158, 62663994 ####[facility] [address] [place] [address] CBC w/Indiceson 08-31-2022 Erythrocyte distribution width (RBC) [Ratio] 12.9 % Normal 10.9-14.2 [facility] Comment on above: Performed By: #### 2 644956, 1770740, 01689487, 1598554, 95289638, 8921758, 9111723, 5614001, 5666593, 5731553, 11661222 ####[facility] [address] [place] [address] Hematocrit (Bld) [Volume fraction] 35.0 % Normal 34.0-46.0 [facility] Comment on above: Performed By: #### 2 899633, 8666367, 45952142, 4826550, 08035439, 0331874, 3854498, 9221325, 6782702, 1337931, 53124253 ####[facility] [address] [place] [address] Hemoglobin (Bld) [Mass/Vol] 12.0 g/dL Normal 12.0-16.0 [facility] Comment on above: Performed By: #### 2 944197, 3485933, 35568571, 8433654, 09561843, 4952132, 5547517, 0311867, 4690729, 0955754, 62943882 ####[facility] [address] [place] [address] MCH (RBC) [Entitic mass] 30.7 pg Normal 27.0-34.0 [facility] Comment on above: Performed By: #### 2 749264, 8203182, 03156076, 1205805, 43647860, 7638669, 3198631, 2176863, 2373471, 6025559, 48112868 ####[facility] [address] [place] [address] MCHC (RBC) [Mass/Vol] 34.4 g/dL Normal 31.4-36.0 [facility] Comment on above: Performed By: #### 2 276960, 7099821, 35436754, 6101127, 31238658, 4531845, 8659644, 4467067, 0935260, 6407850, 45181319 ####[facility] [address] [place] [address] MCV (RBC) [Entitic vol] 89.5 fL Normal 80.0-100.0 [facility] Comment on above: Performed By: #### 2 520265, 8453391, 50389955, 4401840, 67758091, 2991791, 4142922, 6896778, 1603645, 6198966, 00977018 ####[facility] [address] [place] [address] Platelet mean volume (Bld) [Entitic vol] 9.8 fL Normal 6.4-10.8 [facility] Comment on above: Performed By: #### 2 346808, 7072196, 90297535, 0547665, 47512101, 5228438, 3847710, 5746770, 9178180, 5488867, 70097589 ####[facility] [address] [place] [address] Platelets (Bld) [#/Vol] 234.0 E9/L Normal 150.0-500.0 [facility] Comment on above: Performed By: #### 2 529169, 7422210, 88311464, 9587831, 44918653, 0983089, 7814433, 4815315, 9149481, 1841802, 21230688 ####[facility] [address] [place] [address] RBC (Bld) [#/Vol] 3.9 E12/L Low 4.3-5.9 [facility] Comment on above: Performed By: #### 2 050391, 0631936, 18724647, 5842972, 85238414, 4862409, 8425829, 6091447, 2954078, 5044907, 16939927 ####[facility] [address] [place] [address] WBC corrected for nucl RBC Auto (Bld) [#/Vol] 12.6 E9/L High 4.0-11.0 [facility] Comment on above: Performed By: #### 2 861726, 8795924, 79919191, 4477065, 55289722, 1937922, 4404148, 3239713, 3782056, 4594745, 65749662 ####[address] [place] [address] Creatinineon 08-31-2022 Creatinine [Mass/Vol] 0.7 mg/dL Normal 0.5-1.3 [facility] Comment on above: Performed By: #### 2 497747, 7035484, 37887402, 3264073, 32678284, 2129414, 9391924, 3415373, 4733242, 4293583, 45694614 ####[address] [address] Discharge Instructionson Discharge Instructions [id number]#[id number]:12 7 Normal [facility] Ethanolon 08-31-2022 Ethanol [Mass/Vol] mg/dL Normal <=7 [facility] Comment on above: Performed By: #### 2 191031 ####[address] [place] [address] FSPon 08-31-2022 Fibrin+Fibrinogen fragments (S) [Mass/Vol] <10 Normal <10 [facility] Comment on above: Performed By: #### 2 268837, 6070033, 00242327, 7178050, 80484540, 4594406, 9380899, 3911366, 0596997, 3703509, 37673992 ####[address] [place] [address] Stainon 08-31-2022 FMHV 0 mL Invalid Interpretation Code [facility] Comment on above: Performed By: #### 2 111056, 8742843, 99125367, 0313089, 34108720, 4621050, 0116984, 9879747, 2948544, 4927313, 93375801 ####[facility] [address] [place] [address] Negative Control Negative Normal [facility] Comment on above: Performed By: #### 2 935856, 7914551, 99727915, 1372341, 44694229, 6666839, 8949817, 0868160, 9991751, 7770096, 03287800 ####[facility] [address] [place] [address] Fibrinogenon 08-31-2022 Fibrinogen Coag (PPP) [Mass/Vol] 406 mg/dL High 200-393 [facility] Comment on above: Performed By: #### 2 828155, 8735492, 60268439, 4569628, 49971846, 3803023, 4517457, 1360024, 0265214, 1737963, 12995133 ####[facility] [address] [place] [address] Hep Func Panelon 08-31-2022 Bilirubin.indirect [Mass or moles/Vol] UTC Abnormal 0.1-0.9 [facility] Comment on above: Result Comment: Resu lt verified by Discern Rule. Performed result UTC (Unable to Calculate) was sent as an Alpha code due the inability to calculate a valid numeric value. Performed By: #### 2 342533, 9296349, 06842606, 7684917, 59266355, 4279368, 5302656, 7308379, 4383404, 2247604, 85393114 ####[facility] [address] [place] [address] Albumin [Mass/Vol] 2.8 g/dL Low 3.3-5.0 [facility] Comment on above: Performed By: #### 2 634068, 2055021, 04878884, 8514681, 96039998, 7963692, 7918301, 8708295, 3755364, 2430536, 23355356 ####[facility] [address] [place] [address] Albumin/Globulin (S) [Mass conc ratio] 0.7 Low 1.1-2.2 [facility] Comment on above: Performed By: #### 2 103433, 1018212, 82876248, 5734336, 31258914, 1515594, 5105958, 8465109, 3603544, 7228398, 55909514 ####[address] [place] [address] ALP [Catalytic activity/Vol] 80 Int._Unit/L Normal 21-98 [facility] Comment on above: Performed By: #### 2 152074, 6620708, 80994449, 7915900, 03271792, 1429270, 0550609, 9564567, 5080381, 1621073, 16638093 ####[address] [place] [address] ALT No additional P-5'-P [Catalytic activity/Vol] 10 Int._Unit/L Normal 6-46 [facility] Comment on above: Performed By: #### 2 160356, 4239150, 27689183, 6942991, 25090589, 0361899, 1887039, 6920770, 1428210, 1408255, 57104875 ####[facility] [address] [place] [address] AST [Catalytic activity/Vol] 16 Int._Unit/L Normal 5-43 [facility] Comment on above: Performed By: #### 2 226937, 8232779, 53877612, 3574422, 88797068, 8198253, 9124140, 4753249, 6580377, 0708081, 46527718 ####[address] [place] [address] Bilirubin [Mass/Vol] 0.1 mg/dL Normal 0.0-1.1 [facility] Comment on above: Performed By: #### 2 093955, 4922819, 98512258, 3974989, 06138488, 0415352, 5273267, 9216605, 4405470, 7529871, 75089944 ####[facility] [address] [place] [address] Bilirubin.direct [Mass/Vol] mg/dL Normal 0.1-0.4 [facility] Comment on above: Performed By: #### 2 476322, 0827423, 03092712, 4999618, 68875884, 3182022, 2365139, 6056074, 5648310, 5316022, 03236532 ####[facility] [address] [place] [address] Globulin (S) [Mass/Vol] 3.8 g/dL Normal 1.4-4.0 [facility] Comment on above: Performed By: #### 2 547048, 8126383, 72845516, 8583027, 68905207, 0219471, 0332766, 1425234, 7224692, 3304043, 18463141 ####[facility] [address] [place] [address] Protein [Mass/Vol] 6.6 g/dL Normal 6.0-7.8 [facility] Comment on above: Performed By: #### 2 679761, 0175917, 84191462, 7268707, 89620132, 8742629, 6789047, 0252135, 6185474, 4229923, 93140912 ####[facility] [address] [place] [address] Inpatient Clinical Summaryon 08-31-2022 Inpatient Clinical Summary Normal [facility] Inpatient Patient Summaryon 08-31-2022 Inpatient Patient Summary Normal [facility] Lyteson 08-31-2022 Anion gap [Moles/Vol] 13 mmol/L Normal 6-16 [facility] Comment on above: Performed By: #### 2 347720, 9569839, 38698272, 0594293, 90098955, 2175532, 6947618, 2060864, 0587422, 4290996, 14829206 ####[facility] [address] [place] [address] Chloride [Moles/Vol] 104 mmol/L Normal 101-111 [facility] Comment on above: Performed By: #### 2 290711, 3998438, 95951710, 1026799, 20086126, 2793390, 7986032, 4209236, 9155708, 3416711, 56410847 ####[facility] [address] [place] [address] CO2 [Moles/Vol] 22 mmol/L Normal 21-31 [facility] Comment on above: Performed By: #### 2 907556, 4068721, 42892541, 1263348, 43532017, 1669753, 8505472, 1352664, 0246588, 2777471, 24083369 ####[facility] [address] [place] [address] Potassium [Moles/Vol] 3.5 mmol/L Normal 3.5-5.3 [facility] Comment on above: Performed By: #### 2 920825, 2756569, 98477288, 5173667, 72714243, 6413703, 2145541, 5565431, 4039491, 0932980, 85285839 ####[facility] [address] [place] [address] Sodium [Moles/Vol] 135 mmol/L Normal 135-145 [facility] Comment on above: Performed By: #### 2 012333, 2385825, 29717347, 9186507, 11452364, 2561480, 6168754, 8403440, 7588199, 1840264, 71319817 ####[address] [place] [address] Nursing Assessmenton 022 Nursing Assessment [id number]:12 7 Normal [facility] PT & PTTon 08-31-2022 aPTT Coag (PPP) [Time] 26.3 second(s) Normal 25.1-36.5 [facility] Comment on above: Result Comment: [...] the same coagulation reagent and instrumentation as [facility]. Currently there are no coagulation studies available worldwide for children to 14 days, and no normal ranges. Heparin therapeutic range (represented by Anti-Factor Xa activity of 0.2 - 0.4 U/mL) corresponds to PTT of 56.6 - 109.0 sec. Performed By: #### 2 822474, 9372061, 44639840, 5300483, 24749650, 8797528, 2579968, 2492004, 3263910, 6479346, 71022202 ####[facility] [address] [place] [address] INR Coag (PPP) [Relative time] 0.9 {INR} Invalid Interpretation Code [facility] Comment on above: Result Comment: INR results are specifically intended to assess patients stabilized on long-term Anticoagulation therapy suggested INR?s ?Less Intensive Anticoagulation? 2.0 ? 3.0Conventional Range 3.0 ? 4.5 Performed By: #### 2 768104, 3417729, 34967499, 2099460, 22586630, 3305223, 1539400, 7629333, 6131936, 9196071, 33428176 ####[facility] [address] [place] [address] PT Coag (PPP) [Time] 10.2 second(s) Normal 9.4-12.5 [facility] Comment on above: Result Comment: [...] the same coagulation reagent and instrumentation as [facility]. Currently there are no coagulation studies available worldwide for children to 14 days, and no normal ranges. Performed By: #### 2 650508, 9040832, 89017774, 2018220, 63335069, 6283732, 2594430, 7775159, 8437647, 4720738, 87148348 ####[facility] [address] [place] [address] U Drug Screenon 08-31-2022 Amphetamines Screen method >1000 ng/mL Ql (U) Negative Normal Negative [facility] Comment on above: Result Comment: Nega tive Cutoff: <1000 ng/mL Performed By: #### 2 080146, 56784302 ####[facility] [address] [place] [address] Barbiturates Screen Ql (U) Negative Normal Negative [facility] Comment on above: Result Comment: Nega tive Cutoff: <200 ng/mL Performed By: #### 2 055271, 71435869 ####[facility] [address] [place] [address] Benzodiazepines Ql (U) Negative Normal Negative [facility] Comment on above: Result Comment: Nega tive Cutoff: <200 ng/mL Performed By: #### 2 958480, 61164467 ####[facility] [address] [place] [address] Cocaine Ql (U) Negative Normal Negative [facility] Comment on above: Result Comment: Nega tive Cutoff: <300 ng/mL Performed By: #### 2 849018, 30085766 ####[facility] [address] [place] [address] Opiates Screen Ql (U) Negative Normal Negative [facility] Comment on above: Result Comment: Nega tive Cutoff: <300 ng/mL Performed By: #### 2 [id number], [id number] ####[facility] [address] [place] [address] Phencyclidine Screen method >25 ng/mL Ql (U) Negative Normal Negative [facility] Comment on above: Result Comment: Nega tive Cutoff: <25 ng/mLThese drug screen results are to be used for medical (i.e., treatment) purposes only. Unconfirmed drug screening results must not be used for non-medical purposes (e.g., employment testing, legal testing). Performed By: #### 2 285412, [id number] ####[facility] [address] [place] [address] Tetrahydrocannabinol Screen method >50 ng/mL Ql (U) Negative Normal Negative [facility] Comment on above: Result Comment: Nega tive Cutoff: <50 ng/mL Performed By: #### 2 881436, [id number] ####[facility] [address] [place] [address] UA With Cult Reflexon 2021 Bacteria LM Ql (Urine sed) TRACE Normal Trace [facility] Comment on above: Performed By: #### 2 820862, [id number] ####[facility] [address] [place] [address] Bilirubin Ql (U) Negative Normal Negative [facility] Comment on above: Performed By: #### 2 324938, [id number] ####[facility] [address] [place] [address] Clarity (U) CLEAR Normal Clear [facility] Comment on above: Performed By: #### 2 062138, [id number] ####[facility] [address] [place] [address] Color (U) YELLOW Normal Yellow [facility] Comment on above: Performed By: #### 2 132279, [id number] ####[facility] [address] [place] [address] Epithelial cells.squamous LM.HPF (Urine sed) [#/Area] 0-2 Normal 0-2 [facility] Comment on above: Performed By: #### 2 155234, [id number] ####[facility] [address] [place] [address] Glucose Test strip (U) [Mass/Vol] Negative Normal Negative [facility] Comment on above: Performed By: #### 2 981891, [id number] ####[facility] [address] [place] [address] Hemoglobin Ql (U) Negative Normal Negative [facility] Comment on above: Performed By: #### 2 642215, [id number] ####[facility] [address] [place] [address] Ketones (U) [Mass/Vol] Negative Normal Negative [facility] Comment on above: Performed By: #### 2 772173, [id number] ####[facility] [address] [place] [address] [place].plasma/[place] .RBC (Bld) [Mass ratio] 0-3 Normal 0-3 [facility] Comment on above: Performed By: #### 2 297225, [id number] ####[facility] [address] [place] [address] Nitrite Ql (U) Negative Normal Negative [facility] Comment on above: Performed By: #### 2 211622, [id number] ####[facility] [address] [place] [address] pH (U) 6.0 [pH] Invalid Interpretation Code 5.0-9.0 [facility] Comment on above: Performed By: #### 2 458134, [id number] ####[facility] [address] [place] [address] Protein (U) [Mass/Vol] Negative Normal Negative [facility] Comment on above: Performed By: #### 2 987848, [id number] ####[address] [address] Specific gravity (U) [Rel density] 1.010 Invalid Interpretation Code 1.005-1.030 [facility] Comment on above: Performed By: #### 2 361208, [id number] ####[place] [id number] Type of Urine collection method Clean Catch Normal [facility] Comment on above: Performed By: #### 2 019219, [id number] ####[place] [address] Urobilinogen Qn (U) 0.2 {Rola'U}/dL Normal 0.0-1.0 [facility] Comment on above: Performed By: #### 2 008908, [id number] ####[place] [address] WBC Auto Ql (U) Negative Normal Negative [facility] Comment on above: Performed By: #### 2 610492, [id number] ####[place] [address] WBC LM.HPF (Urine sed) [#/Area] 0-5 Normal 0-5 [facility] Comment on above: Performed By: #### 2 985022, [id number] ####[address] [address] Uric Acidon 08-31-2022 Urate [Mass/Vol] 5.0 mg/dL Normal 2.2-7.4 [facility] Comment on above: Performed By: #### 2 987601, 4826828, 13290135, 6928525, 01112991, 8912740, 0217384, 3676169, 6885096, 7099030, 03079875 ####[facility] [address] [place] [address] eGFRon 08-31-2022 GFR/1.73 sq M.predicted among blacks MDRD (S/P/Bld) [Vol rate/Area] mL/min/{1.73_m2} Normal >=59 [facility] Comment on above: Order Comment: Order added by Discern Expert. Result Comment: eGFR is race adjusted. AA=. Performed By: #### 2 620097, 3629246, 73077681, 3741160, 38361634, 9621071, 6373656, 1871994, 6161661, 4503293, 15232554 ####[facility] [address] [place] [address] GFR/1.73 sq M.predicted among non-blacks MDRD (S/P/Bld) [Vol rate/Area] mL/min/{1.73_m2} Normal >=59 [facility] Comment on above: Order Comment: Order added by Discern Expert. Result Comment: Spine Specialist lucy kidney disease could be indicated at eGFR's of less than 60 mL/min/1.73m2. Kidney failure is indicated at less than 15 mL/min/1.73m2. Performed By: #### 2 788245, 5499899, 48693165, 1783560, 13977042, 2902174, 0376995, 0914737, 8966653, 6163868, [id number] ####[facility] [address] [place] [address] BLOOD BANKOrdered By: Naldo Li on 08-30-2022 ABO/Rh Interp Positive Invalid Interpretation Code FT BB Subsection ABSC Gel Interp Negative (08/30/22 11:51 PM) Normal FT BB Subsection FMHV 0 mL Invalid Interpretation Code [facility] Man Sero CHEMISTRYOrdered By: SYSTEM SYSTEM on [...] Consent for Treatmenton 08-15 Consent for Treatment [id number] Normal [facility] HEMATOLOGYOrdered By: Naldo Li on [...] PM) Normal Negative [facility] UA Auto SS [place].plasma/[place] .RBC (Bld) [Mass ratio] 0-3 /HPF Normal [...] [facility] UA Auto SS Urobilinogen Qn (U) 0.1546194 {Rola'U}/dL Normal 0.0 - 1.0 EU/dL [facility] UA Auto SS WBC Auto Ql (U) Negative (08/30/22 9:45 PM) Normal Negative [facility] UA Auto SS WBC LM.HPF (Urine sed) [#/Area] 0-5 /HPF Normal 0-5/HPF [facility] UA Auto SS Coding Summary.on 08-28-2022 Coding Summary. Normal [facility] BLOOD BANKOrdered By: Janet Reyes on 08-22-2022 ABO/Rh Interp Positive Invalid Interpretation Code [facility] BB Subsection ABSC Gel Interp Negative (08/22/22 4:03 PM) Normal [facility] BB Subsection FMHV 0 mL Invalid Interpretation Code [facility] Man Sero CHEMISTRYOrdered By: SYSTEM SYSTEM on [...] rate/Area] mL/min/1.73 m2 Normal >=59mL/min/ 1.73 m2 [facility] Chem S GFR/1.73 sq M.predicted among non-blacks MDRD (S/P/Bld) [Vol rate/Area] mL/min/1.73 m2 Normal >=59mL/min/ 1.73 m2 [facility] Chem S Globulin (S) [Mass/Vol] 3.7 g/dL [...] PM) Normal Negative [facility] UA Auto SS [place].plasma/[place] .RBC (Bld) [Mass ratio] 0-3 /HPF Normal [...] [facility] UA Auto SS Urobilinogen Qn (U) 0.6065487 {Roal'U}/dL Normal 0.0 - 1.0 EU/dL [facility] UA [...] AM) Normal Negative [facility] UA Auto SS [place].plasma/[place] .RBC (Bld) [Mass ratio] 0-3 /HPF Normal [...] Desc Clean Catch (08/18/22 4:08 AM) Normal [facility] UA Auto SS Urobilinogen Qn (U) 0.0243248 {Rola'U}/dL Normal 0.0 - 1.0 EU/dL [facility] UA Auto SS WBC Auto Ql (U) 2+ *ABN* (08/18/22 4:08 AM) Invalid Interpretation Code Negative [facility] UA Auto SS WBC LM.HPF (Urine sed) [#/Area] 6-15 /HPF Invalid Interpretation Code 0-5/HPF [facility] UA Auto SS BLOOD BANKOrdered By: Tom Avelar on 08-13-2022 ABO/Rh Interp Positive Invalid Interpretation Code [facility] BB Subsection ABSC Gel Interp Negative (08/13/22 6:26 PM) Normal [facility] BB Subsection FMHV 0 mL Invalid Interpretation Code [facility] Man Sero CHEMISTRYOrdered By: SYSTEM SYSTEM on [...] Interpretation Code Negative [facility] UA Auto SS [place].plasma/[place] .RBC (Bld) [Mass ratio] 0-3 /HPF Normal [...] [facility] UA Auto SS Urobilinogen Qn (U) 0.8444421 {Rola'U}/dL Normal 0.0 - 1.0 EU/dL [facility] [...] AM) Normal Negative [facility] UA Auto SS [place].plasma/[place] .RBC (Bld) [Mass ratio] 0-3 /HPF Normal [...] [facility] UA Auto SS Urobilinogen Qn (U) 0.2410660 {Rola'U}/dL Normal 0.0 - 1.0 EU/dL [facility] [...] [Mass/Vol] Negative (07/17/22 9:25 AM) Normal Negative [facility] UA Auto SS Hemoglobin Ql (U) Negative (07/17/22 9:25 AM) Normal Negative [facility] UA Auto SS Ketones (U) [Mass/Vol] Negative (07/17/22 9:25 AM) Normal Negative [facility] UA Auto SS [place].plasma/[place] .RBC (Bld) [Mass ratio] 0-3 /HPF Normal 0-3/HPF [facility] UA Auto SS Nitrite Ql (U) Negative (07/17/22 9:25 AM) Normal Negative [facility] UA Auto SS pH (U) 7.0 *NA* (07/17/22 9:25 AM) Invalid Interpretation Code 5.0 - 9.0 [facility] UA Auto SS Protein (U) [Mass/Vol] Negative (07/17/22 9:25 AM) Normal Negative [facility] UA Auto SS Specific gravity (U) [Rel density] <=1.005 *NA* (07/17/22 9:25 AM) Invalid Interpretation Code 1.005 - 1.030 [facility] UA Auto SS UA Spec Desc Clean Catch (07/17/22 9:25 AM) Normal [facility] UA Auto SS Urobilinogen Qn (U) 0.8582872 {Rola'U}/dL Normal 0.0 - 1.0 EU/dL [facility] UA Auto SS WBC Auto Ql (U) Negative (07/17/22 9:25 AM) Normal Negative [facility] UA Auto SS WBC LM.HPF (Urine sed) [#/Area] 0-5 /HPF Normal 0-5/HPF [facility] UA Auto SS CHEMISTRYOrdered By: SYSTEM SYSTEM on 06-28-2022 Glucose 1 Hr post 50 g glucose PO [Mass/Vol] 93 mg/dL Normal 55 - 140 mg/dL [facility] Remisol HEMATOLOGYOrdered By: Keila Ring on 06-28-2022 Hematocrit (Bld) [Volume fraction] 35.4 % Normal 34.0 - 46.0 % [facility] HemeAutoSS Hemoglobin (Bld) [Mass/Vol] 12.1 g/dL Normal 12.0 - 16.0 gm/dL [facility] HemeAutoSS BLOOD BANKOrdered By: Jeanette Castle on 06-19-2022 ABO/Rh Interp Positive Invalid Interpretation Code [facility] BB Subsection ABSC Gel Interp Negative (06/19/22 12:15 AM) Normal [facility] BB Subsection FMHV 0 mL Invalid Interpretation Code [facility] Man Sero CHEMISTRYOrdered By: SYSTEM SYSTEM on [...] PM) Normal Negative [facility] UA Auto SS [place].plasma/[place] .RBC (Bld) [Mass ratio] 0-3 /HPF Normal [...] [facility] UA Auto SS Urobilinogen Qn (U) 0.6735454 {Rola'U}/dL Normal 0.0 - 1.0 EU/dL [facility] [...] PM) Normal Negative [facility] UA Auto SS [place].plasma/[place] .RBC (Bld) [Mass ratio] 0-3 /HPF Normal 0-3/HPF [facility] UA Auto SS Mucus Ql (Urine sed) Trace (05/01/22 5:20 PM) Normal [facility] UA Auto SS Nitrite Ql (U) Negative (05/01/22 5:20 PM) Normal Negative [facility] UA Auto SS pH (U) 5.5 *NA* (05/01/22 5:20 PM) Invalid Interpretation Code 5.0 - 9.0 [facility] UA Auto SS Protein (U) [Mass/Vol] Trace *ABN* (05/01/22 5:20 PM) Invalid Interpretation Code Negative [facility] UA Auto SS Specific gravity (U) [Rel density] >=1.030 *NA* (05/01/22 5:20 PM) Invalid Interpretation Code 1.005 - 1.030 [facility] UA Auto SS UA Spec Desc Random Urine (05/01/22 5:20 PM) Normal [facility] UA Auto SS Urobilinogen Qn (U) 1.6493393 {Rola'U}/dL Normal 0.0 - 1.0 EU/dL [facility] UA Auto SS WBC Auto Ql (U) Negative (05/01/22 5:20 PM) Normal Negative [facility] UA Auto SS WBC LM.HPF (Urine sed) [#/Area] 0-5 /HPF Normal 0-5/HPF [facility] UA Auto SS BLOOD BANKOrdered By: Shayy Medina on 04-02-2022 ABO/Rh Interp Positive Invalid Interpretation Code [facility] BB Subsection ABSC Gel Interp Negative (04/02/22 7:17 AM) Normal [facility] BB Subsection FMHV 0 mL Invalid Interpretation Code [facility] Man Sero CHEMISTRYOrdered By: SYSTEM SYSTEM on [...] AM) Normal Negative [facility] UA Auto SS [place].plasma/[place] .RBC (Bld) [Mass ratio] 0-3 /HPF Normal [...] Desc Random Urine (04/02/22 6:05 AM) Normal [facility] UA Auto SS Urobilinogen Qn (U) 0.3116710 {Rola'U}/dL Normal 0.0 - 1.0 EU/dL FT [...] PM) Normal Negative [facility] UA Auto SS [place].plasma/[place] .RBC (Bld) [Mass ratio] 0-3 /HPF Normal [...] [facility] UA Auto SS Urobilinogen Qn (U) 0.2092734 {Rola'U}/dL Normal 0.0 - 1.0 EU/dL [facility] [...] By: Stephanie Diana on 02-15-2022 Test Code 152518 Invalid Interpretation Code [facility] SendOutsSS Test Name IG PAP CTNG HPV Invalid Interpretation Code [facility] SendOutsSS [place] 05-05-2021 CNPN Telephone (GSTCON) ----- SUSAN BRO ([id number]) 1995 F Date Time Provider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 report reviewed and electronically signed by: MARII MCCLURE MD on Jul 23 2017 1:45PM ESTXR HIP GENERAL 3V PELV/AP/LAT LT Final Result IMPRESSION: No acute/significant pathology detected. Order Entry Specialist: PSCB Transcribe Date/Time: Jul 23 2017 1:42P Dictated by : LUIS CARLOS PALM MD This examination was interpreted and the report reviewed and electronically signed by: LUIS CARLOS PALM MD on Jul 23 2017 1:43PM ESTXR SHOULDER GENERAL 3V OR MORE AP/TRUE AP/OTHER LT Final Result IMPRESSION: No acute/significant pathology detected. Order Entry Specialist: [facility] Transcribe Date/Time: Jul 23 2017 1:41P Dictated by : LUIS CARLOS PALM MD This examination was interpreted and the report reviewed and electronically signed by: LUIS CRALOS PALM MD on Jul 23 2017 1:42PM [...] She will also [facility] for furtherevaluation and assessment. Patient understands [...] assessment of the patient andhave reviewed the PA/SUPERVISOR FINISHING ROOM note. My fair findings include:History Involved in [...] 4:34 PMCarl Dario Torres MD07/23/17 1636 Normal [facility] MRI CERVICAL SPINE WO IVCONo n [...] MCCLURE MD on Jul 23 2017 3:41PM [id number] Normal [facility] PROGRESSon 07-23-2017 PROGRESS HNO ID: [id number] thor: Anna Lawler RtService: (none)Author Type: (none)Type: [...] (R) (CT)(MR)July 23, 2017 3:09 PM Normal [facility] PROGRESS HNO ID: [id number] thor: Shayy Ramires RtService: (none)Author Type: (none)Type: Progress NotesFiled: 07/23/2017 1:36 PMNote Text: Radiology Service Progress NotePATIENT NAME: Susan HogueMRN: [id number] OF SERVICE: July 23, 2017TIME: 1:36 PMPATIENT IDENTITY VERIFICATION COMPLETED USING TWO (2) METHODS: Patientconfirmed name verbally and Date of .PATIENT GENDER DATA: Female. status: : NoBreastfeeding status: NO.PATIENT RELEVANT IMPLANT DATA REVIEWED: YesRADIOLOGY DEPARTMENT: CT; Exam(s) Completed: SpinePERIPHERAL IV DATA: Not applicableSIGNED BY: Shayy Ramires RtOctober 2016 1:36 PM Normal [facility] PROGRESS HNO ID: [id number] thor: Romelia (Gi Chairez: (none)Author Type: TechnicianType: Progress NotesFiled: 07/23/2017 1:32 PMNote Text: Radiology Service Progress NotePATIENT NAME: Susan HogueMRN: [id number] OF SERVICE: July 23, 2017TIME: 1:32 PMPATIENT [...] Romelia Green RTOctober 2016 1:32 PM Normal [facility] XR HIP 3V PELV+ AP/LAT LTon [...] soft tissues are unremarkable.IMPRESSION:N o acute/significant pathology detected.Order Entry Specialist : PSCB Transcribe Date/Time: Jul 23 2017 1:42PDictated by : Armando CHARLES examination was interpreted and the report reviewed and electronically signed by: LUIS CARLOS PALM MD on Jul 23 2017 1:43PM [id number] Normal [facility] XR KNEE 2V AP/LAT LTon 07-23 [...] soft tissues are unremarkable.IMPRESSION:N o acute/significant pathology detected.Order Entry Specialist : [facility] Transcribe Date/Time: Jul 23 2017 1:44PDictated by : Armando CHARLES examination was interpreted and the report reviewed and electronically signed by: LUIS CARLOS PALM MD on Jul 23 2017 1:45PM [id number] Normal [facility] XR KNEE 2V AP/LAT RTon 07-23 [...] soft tissues are unremarkable.IMPRESSION:N o acute/significant pathology detected.Order Entry Specialist : PSCB Transcribe Date/Time: Jul 23 2017 1:44PDictated by : Armando CHARLES examination was interpreted and the report reviewed and electronically signed by: LUIS CARLOS PALM MD on Jul 23 2017 1:45PM [id number] Normal [facility] XR SHLDR >/=3V AP/IMER AP/OTH R [...] soft tissues are unremarkable.IMPRESSION:N o acute/significant pathology detected.Order Entry Specialist : PSCB Transcribe Date/Time: Jul 23 2017 1:41PDictated by : Armando CHARLES examination was interpreted and the report reviewed and electronically signed by: LUI SCARLOS PALM MD on Jul 23 2017 1:42PM [id number] Normal [facility] Vital Signs Date Time Vital Sign Value Performing Clinician Facility 11-04-2023 08:13-0500 Blood Pressure Location Rashaun PURVIS [facility] 11-04-2023 08:13-0500 Body temperature 98.06 [degF] Rashaun PURVIS [facility] 11-04-2023 08:13-0500 Diastolic blood pressure 68 mm[Hg] Rashaun PURVIS [facility] 11-04-2023 08:13-0500 Heart rate 77 /min Rashaunleoncio PURVIS [facility] 11-04-2023 08:13-0500 Mean blood pressure 81 mm[Hg] Rashaun YANIV [facility] 11-04-2023 08:13-0500 SaO2% (BldA) [Mass fraction] 99 % Rashaun YANIV [facility] 11-04-2023 08:13-0500 Systolic blood pressure 106 mm[Hg] Rashaun YANIV [facility] 11-04-2023 08:00-0500 Hourly Rounding Rashaun YANIV [facility] 11-04-2023 08:00-0500 Promise to Return Rashaun YANIV [facility] 08-18-2023 07:30-0400 Body temperature 98.24 [degF] Julia Nataprawira [facility] 08-18-2023 07:30-0400 Diastolic blood pressure 67 mm[Hg] Julia Nataprawira [facility] 08-18-2023 07:30-0400 Heart rate 95 /min Julia Nataprawira [facility] 08-18-2023 07:30-0400 Hourly Rounding Julia Nataprawira [facility] 08-18-2023 07:30-0400 Mean blood pressure 89 mm[Hg] Julia Nataprawira [facility] 08-18-2023 07:30-0400 Respiratory rate 16 /min Julia Nataprawira [facility] 08-18-2023 07:30-0400 Systolic blood pressure 133 mm[Hg] Julia Nataprawira [facility] 07-25-2023 08:17-0400 Body temperature 97.7 [degF] Kristian Eagle [facility] 07-25-2023 08:17-0400 Diastolic blood pressure 65 mm[Hg] Kristian Guillermo [facility] 07-25-2023 08:17-0400 Heart rate 73 /min Kristian Guillermo [facility] 07-25-2023 08:17-0400 Respiratory rate 16 /min Kristian Guillermo [facility] 07-25-2023 08:17-0400 SaO2% (BldA) [Mass fraction] 100 % Kristian Guillermo [facility] 07-25-2023 08:17-0400 Systolic blood pressure 119 mm[Hg] Kristian Guillermo [facility] 06-28-2023 10:34-0400 Blood Pressure Location Roverto Spasic [facility] 06-28-2023 10:34-0400 Body temperature 98.24 [degF] Roverto Spasic [facility] 06-28-2023 10:34-0400 Diastolic blood pressure 78 mm[Hg] Roverto Spasic [facility] 06-28-2023 10:34-0400 Heart rate 81 /min Roverto Spasic [facility] 06-28-2023 10:34-0400 SaO2% (BldA) [Mass fraction] 99 % Roverto Spasic [facility] 06-28-2023 10:34-0400 Systolic blood pressure 119 mm[Hg] Roverto Spasic [facility] 06-14-2023 08:37-0400 Body temperature 98.6 [degF] Kristian Guillermo [facility] 06-14-2023 08:37-0400 Diastolic blood pressure 70 mm[Hg] Kristian Eagle [facility] 06-14-2023 08:37-0400 Heart rate 69 /min Kristian Guillermo [facility] 06-14-2023 08:37-0400 Respiratory rate 18 /min Kristian Guillermo [facility] 06-14-2023 08:37-0400 SaO2% (BldA) [Mass fraction] 100 % Kristian Guillermo [facility] 06-14-2023 08:37-0400 Systolic blood pressure 110 mm[Hg] Kristian Guillermo [facility] 05-21-2023 23:00-0400 Diastolic blood pressure 64 mm[Hg] Kaylinn Dokken [facility] 05-21-2023 23:00-0400 Heart rate 64 /min Kaylinn Dokken [facility] 05-21-2023 23:00-0400 Mean blood pressure 77 mm[Hg] Kaylinn Dokken [facility] 05-21-2023 23:00-0400 Respiratory rate 18 /min Kaylinn Dokken [facility] 05-21-2023 23:00-0400 Systolic blood pressure 102 mm[Hg] Kaylinn Dokken [facility] 05-21-2023 21:50-0400 Hourly Rounding Kaylinn Dokken [facility] 08-07-2023 21:30-0400 Diastolic blood pressure 53 mm[Hg] Kaylinn Dokken [facility] 05-21-2023 21:30-0400 Heart rate 72 /min Kaylinn Dokken [facility] 05-21-2023 21:30-0400 Respiratory rate 19 /min Kaylinn Dokken [facility] 05-21-2023 21:30-0400 SaO2% (BldA) [Mass fraction] 100 % Kaylinn Dokken [facility] 05-21-2023 21:30-0400 Systolic blood pressure 91 mm[Hg] Kaylinn Dokken [facility] 05-21-2023 20:38-0400 Body temperature 98.42 [degF] Kaylinn Dokken [facility] 05-21-2023 20:38-0400 Diastolic blood pressure 73 mm[Hg] Kaylinn Dokken [facility] 05-21-2023 20:38-0400 Heart rate 60 /min Kaylinn Dokken [facility] 05-21-2023 20:38-0400 Respiratory rate 20 /min Kaylinn Dokken [facility] 05-21-2023 20:38-0400 Systolic blood pressure 109 mm[Hg] Kaylinn Dokken [facility] 04-26-2023 11:10-0400 Diastolic blood pressure 74 mm[Hg] [facility] 04-26-2023 11:10-0400 Heart rate 65 /min [facility] 04-26-2023 11:10-0400 Respiratory rate 14 /min [facility] 04-26-2023 11:10-0400 SaO2% (BldA) [Mass fraction] 100 % [facility] 04-26-2023 11:10-0400 Systolic blood pressure 108 mm[Hg] [facility] 04-26-2023 09:00-0400 Body temperature 98.24 [degF] [facility] 04-26-2023 09:00-0400 Diastolic blood pressure 72 mm[Hg] [facility] 04-26-2023 09:00-0400 Heart rate 80 /min [facility] 04-26-2023 09:00-0400 Mean blood pressure 85 mm[Hg] [facility] 04-26-2023 09:00-0400 Respiratory rate 18 /min [facility] 04-26-2023 09:00-0400 Systolic blood pressure 110 mm[Hg] [facility] 01-31-2023 11:43-0400 Diastolic blood pressure 67 mm[Hg] Kristian Guillermo [facility] 01-31-2023 11:43-0400 Heart rate 68 /min Kristian Guillermo [facility] 01-31-2023 11:43-0400 Mean blood pressure 79 mm[Hg] Kristian Guillermo [facility] 01-31-2023 11:43-0400 Respiratory rate 16 /min Kristian Guillermo [facility] 01-31-2023 11:43-0400 SaO2% (BldA) [Mass fraction] 100 % Kristian Guillermo [facility] 01-31-2023 11:43-0400 Systolic blood pressure 103 mm[Hg] Kristian Guillermo [facility] 01-31-2023 11:03-0400 Diastolic blood pressure 73 mm[Hg] Kristian Eagle [facility] 01-31-2023 11:03-0400 Heart rate 71 /min Kristian Eagle [facility] 01-31-2023 11:03-0400 Mean blood pressure 81 mm[Hg] Kristian Eagle [facility] 01-31-2023 11:03-0400 Respiratory rate 12 /min Kristian Eagle [facility] 01-31-2023 11:03-0400 SaO2% (BldA) [Mass fraction] 100 % Kristian Eagle [facility] 01-31-2023 11:03-0400 Systolic blood pressure 98 mm[Hg] Kristian Eagle [facility] 01-31-2023 10:29-0400 Diastolic blood pressure 77 mm[Hg] Kristian Eagle [facility] 01-31-2023 10:29-0400 Heart rate 87 /min Kristian Eagle [facility] 01-31-2023 10:29-0400 Respiratory rate 21 /min Kristian Eagle [facility] 01-31-2023 10:29-0400 SaO2% (BldA) [Mass fraction] 99 % Kristian Eagle [facility] 01-31-2023 10:29-0400 Systolic blood pressure 101 mm[Hg] Kristian Guillermo [facility] 01-31-2023 09:51-0400 gluc 100 mg/dL Kristian Guillermo [facility] 01-31-2023 09:51-0400 gluc Kristian Guillermo [facility] 01-31-2023 09:43-0400 Body temperature 98.42 [degF] Kristian Guillermo [facility] 01-31-2023 09:43-0400 Heart rate 75 /min Kristian Guillermo [facility] 01-31-2023 09:43-0400 Respiratory rate 18 /min Kristian Guillermo [facility] 09-22-2022 15:14-0500 Body temperature 98.24 [degF] Luis Carlos Jung [facility] 09-22-2022 15:14-0500 Diastolic blood pressure 84 mm[Hg] Luis Carlos Jung [facility] 09-22-2022 15:14-0500 Heart rate 76 /min Luis Carlos Jung [facility] 09-22-2022 15:14-0500 Mean blood pressure 97 mm[Hg] Luis Carlos uJng [facility] 09-22-2022 15:14-0500 Respiratory rate 20 /min Luis Carlos Jung [facility] 09-22-2022 15:14-0500 Systolic blood pressure 124 mm[Hg] Luis Carlos Jung [facility] 09-22-2022 15:00-0500 Blood Pressure Location Luis Carlos Jung [facility] 09-20-2022 17:15-0500 Hourly Rounding Luis Carlos Jung [facility] Comment on above: Result Comment: discharge instructions g iven with verbal understanding. monitors off; pt up to dress. 09-20-2022 16:15-0500 Diastolic blood pressure 77 mm[Hg] Luis Carlos Jung [facility] 12-07-2022 16:15-0500 Heart rate 78 /min Luis Carlos Fabiana [facility] 09-20-2022 16:15-0500 Mean blood pressure 92 mm[Hg] Luis Carlos Fabiana [facility] 09-20-2022 16:15-0500 Respiratory rate 18 /min Luis Carlos Fabiana [facility] 09-20-2022 16:15-0500 Systolic blood pressure 121 mm[Hg] Luis Carlos Fabiana [facility] 09-20-2022 13:16-0500 Diastolic blood pressure 80 mm[Hg] Luis Carlos Fabiana [facility] 09-20-2022 13:16-0500 Heart rate 80 /min Luis Carlos Fabiana [facility] 09-20-2022 13:16-0500 Mean blood pressure 93 mm[Hg] Luis Carlos Fabiana [facility] 09-20-2022 13:16-0500 Respiratory rate 18 /min Luis Carlos Fabiana [facility] 09-20-2022 13:16-0500 Systolic blood pressure 120 mm[Hg] Luis Carlos Fabiana [facility] 09-20-2022 09:48-0500 Diastolic blood pressure 79 mm[Hg] Luis Carlos Fabiana [facility] 09-20-2022 09:48-0500 Heart rate 94 /min Luis Carlos Fabiana [facility] 09-20-2022 09:48-0500 Hourly Rounding Luis Carlos Montesinosten [facility] 09-20-2022 09:48-0500 Mean blood pressure 97 mm[Hg] Luis Carlos Fabiana [facility] 09-20-2022 09:48-0500 Respiratory rate 18 /min Luis Carlos Jung [facility] 09-20-2022 09:48-0500 Systolic blood pressure 132 mm[Hg] Luis Carlos Jung [facility] 09-19-2022 03:38-0500 Hourly Rounding Jj KARASIK [facility] Comment on above: Result Comment: pt walks off unit with a steady gait 09-19-2022 02:45-0500 Blood Pressure Location Jj KARASIK [facility] 09-19-2022 02:45-0500 Body temperature 98.42 [degF] Jj KARASIK [facility] 09-19-2022 02:45-0500 Diastolic blood pressure 77 mm[Hg] Jj KARASIK [facility] 09-19-2022 02:45-0500 Heart rate 62 /min Jj KARASIK [facility] 09-19-2022 02:45-0500 Hourly Rounding Jj KARASIK [facility] Comment on above: Result Comment: questions answered, guillaume monk 09-19-2022 02:45-0500 Mean blood pressure 91 mm[Hg] Jj KARASIK [facility] 09-19-2022 02:45-0500 Respiratory rate 18 /min Jj KARASIK [facility] 09-19-2022 02:45-0500 Systolic blood pressure 120 mm[Hg] Jj KARASIK [facility] 09-19-2022 01:45-0500 Blood Pressure Location Jj KARASIK [facility] 09-19-2022 01:45-0500 Body temperature 98.06 [degF] Jj KARASIK [facility] 09-19-2022 01:45-0500 Diastolic blood pressure 84 mm[Hg] Jj MIKE [facility] 09-19-2022 01:45-0500 Heart rate 70 /min Jj MIKE [facility] 09-19-2022 01:45-0500 Hourly Rounding Jj MIKE [facility] Comment on above: Result Comment: pt brought to unit via w heelchair. Changes into gown independently and provides urine sample. Pt demonstrates ability to use call light. Needs met, call light in reach 09-19-2022 01:45-0500 Mean blood pressure 96 mm[Hg] Jj MIKE [facility] 09-19-2022 01:45-0500 Respiratory rate 18 /min Jj MIKE [facility] 09-19-2022 01:45-0500 Systolic blood pressure 120 mm[Hg] Jj MIKE [facility] 09-14-2022 12:15-0500 Hourly Rounding Luis Carlos Jung [facility] Comment on above: Result Comment: reviewed plan for disch and use of meds to treat head ache 09-14-2022 11:45-0500 Hourly Rounding Luis Carlos Fabiana [facility] Comment on above: Result Comment: STATES SHE FEELS MUCH BE TTER AND WANTS TO GO HOME 09-14-2022 11:15-0500 Diastolic blood pressure 73 mm[Hg] Luis Carlos Jung [facility] 09-14-2022 11:15-0500 Heart rate 74 /min Luis Carlos Jung [facility] 09-14-2022 11:15-0500 Hourly Rounding Luis Carlos Jung [facility] 09-14-2022 11:15-0500 Mean blood pressure 88 mm[Hg] Luis Carlos Jung [facility] 09-14-2022 11:15-0500 Systolic blood pressure 119 mm[Hg] Luis Carlos Jung [facility] 09-14-2022 11:00-0500 Diastolic blood pressure 66 mm[Hg] Luis Carlos Jung [facility] 09-14-2022 11:00-0500 Heart rate 67 /min Luis Carlos Jung [facility] 09-14-2022 11:00-0500 Mean blood pressure 84 mm[Hg] Luis Carlos Jung [facility] 09-14-2022 11:00-0500 Systolic blood pressure 120 mm[Hg] Luis Carlos Jung [facility] 09-14-2022 10:45-0500 Diastolic blood pressure 72 mm[Hg] Luis Carlos Jung [facility] 09-14-2022 10:45-0500 Heart rate 75 /min Luis Carlos Jung [facility] 09-14-2022 10:45-0500 Mean blood pressure 90 mm[Hg] Luis Carlos Jung [facility] 09-14-2022 10:45-0500 Systolic blood pressure 125 mm[Hg] Luis Carlos Mnotesinosten [facility] 09-14-2022 09:30-0500 Blood Pressure Location Luis Carlos Jung [facility] 09-14-2022 09:30-0500 Body temperature 98.06 [degF] Luis Carlos Jung [facility] 09-14-2022 09:30-0500 Respiratory rate 16 /min Luis Carlos Jung [facility] 09-12-2022 20:45-0500 Hourly Rounding Luis Carlos Jung [facility] Comment on above: Result Comment: dischage instructions gi merly, pt verbalizes understanding. pt ambulates off unit with steady gait 09-12-2022 20:00-0500 Blood Pressure Location Luis Carlos Jung [facility] 09-12-2022 20:00-0500 Diastolic blood pressure 79 mm[Hg] Luis Carlos Jung [facility] 09-12-2022 20:00-0500 Heart rate 84 /min Luis Carlos Jung [facility] 09-12-2022 20:00-0500 Hourly Rounding Luis Carlos Jung [facility] 09-12-2022 20:00-0500 Mean blood pressure 95 mm[Hg] Luis Carlos Jung [facility] 09-12-2022 20:00-0500 Respiratory rate 18 /min Luis Carlos Jung [facility] 09-12-2022 20:00-0500 Systolic blood pressure 128 mm[Hg] Luis Carlos Jung [facility] 09-12-2022 19:45-0500 Hourly Rounding Luis Carlos Jung [facility] Comment on above: Result Comment: pt arrives to unit in wh eelchair with mother. Changes into gown independently, oriented to room, demonstrates ability to use call light, call light in reach 09-08-2022 08:32-0500 Blood Pressure Location Luis Carlos Jung [facility] 09-08-2022 08:32-0500 Body temperature 97.34 [degF] Luis Carlos Jung [facility] 09-08-2022 08:32-0500 Diastolic blood pressure 74 mm[Hg] Luis Carlos Jung [facility] 09-08-2022 08:32-0500 Heart rate 90 /min Luis Carlos Jung [facility] 09-08-2022 08:32-0500 Hourly Rounding Luis Carlos Jung [facility] Comment on above: Result Comment: PLAN OF CARE DISCUSSED 09-08-2022 08:32-0500 Mean blood pressure 90 mm[Hg] Luis Carlos Jung [facility] 09-08-2022 08:32-0500 Respiratory rate 18 /min Luis Carlos Jung [facility] 09-08-2022 08:32-0500 Systolic blood pressure 123 mm[Hg] Luis Carlos Jung [facility] 09-05-2022 22:00-0500 Body temperature 98.6 [degF] Kaylinn Dokken [facility] 09-05-2022 22:00-0500 Diastolic blood pressure 73 mm[Hg] Kaylinn Dokken [facility] 09-05-2022 22:00-0500 Mean blood pressure 85 mm[Hg] Kaylinn Dokken [facility] 09-05-2022 22:00-0500 Respiratory rate 27 /min Kaylinn Dokken [facility] 09-05-2022 22:00-0500 SaO2% (BldA) [Mass fraction] 100 % Kaylinn Dokken [facility] 09-05-2022 22:00-0500 Systolic blood pressure 108 mm[Hg] Kaylinn Dokken [facility] 09-05-2022 21:01-0500 Heart rate 78 /min Kaylinn Dokken [facility] 09-05-2022 21:01-0500 Respiratory rate 20 /min Kaylinn Dokken [facility] 09-05-2022 21:01-0500 SaO2% (BldA) [Mass fraction] 94 % Kaylinn Dokken [facility] 09-05-2022 21:00-0500 Diastolic blood pressure 77 mm[Hg] Kaylinn Dokken [facility] 09-05-2022 21:00-0500 Mean blood pressure 87 mm[Hg] Kaylinn Dokken [facility] 09-05-2022 20:10-0500 Body temperature 97.7 [degF] Kaylinn Dokken [facility] 09-05-2022 20:10-0500 Diastolic blood pressure 81 mm[Hg] Kaylinn Dokken [facility] 09-05-2022 20:10-0500 Heart rate 83 /min Kaylinn Dokken [facility] 09-05-2022 20:10-0500 Respiratory rate 22 /min Kaylinn Dokken [facility] 09-05-2022 20:10-0500 SaO2% (BldA) [Mass fraction] 99 % Kaylinn Dokken [facility] 09-05-2022 20:10-0500 Systolic blood pressure 135 mm[Hg] Kaylinn Dokken [facility] 08-31-2022 01:03-0500 Hourly Rounding Luis Carlos Jung [facility] Comment on above: Result Comment: pt ambulates off unit at this time w/ steady gait. 08-31-2022 00:58-0500 Hourly Rounding Luis Carlos Jung [facility] Comment on above: Result Comment: this nurse gives dischar ge instructions to pt at this time. pt verbalizes understanding of all education given. denies further needs. will continue to monitor. 08-31-2022 00:50-0500 Blood Pressure Location Luis Carlos Jung [facility] 08-31-2022 00:50-0500 Diastolic blood pressure 69 mm[Hg] Luis Carlos Jung [facility] 08-31-2022 00:50-0500 Heart rate 67 /min Luis Carlos Jung [facility] 08-31-2022 00:50-0500 Hourly Rounding Luis Carlos Jung [facility] Comment on above: Result Comment: pt up to bathroom at thi s time to void and change into clothes. walks w/ steady gait. 08-31-2022 00:50-0500 Mean blood pressure 83 mm[Hg] Luis Carlos Jung [facility] 08-31-2022 00:50-0500 Respiratory rate 18 /min Luis Carlos Jung [facility] 08-31-2022 00:50-0500 Systolic blood pressure 112 mm[Hg] Luis Carlos Jung [facility] 08-30-2022 21:52-0500 Body temperature 98.06 [degF] Luis Carlos Jung [facility] 08-30-2022 21:52-0500 Diastolic blood pressure 74 mm[Hg] Luis Carlos Jung [facility] 08-30-2022 21:52-0500 Heart rate 82 /min Luis Carlos Jung [facility] 08-30-2022 21:52-0500 Mean blood pressure 90 mm[Hg] Luis Carlos Jung [facility] 08-30-2022 21:52-0500 Respiratory rate 18 /min Luis Carlos Jung [facility] 08-30-2022 21:52-0500 Systolic blood pressure 123 mm[Hg] Luis Carlos Jung [facility] 08-30-2022 21:45-0500 Blood Pressure Location Luis Carlos Jung [facility] 08-22-2022 17:19-0500 Hourly Rounding Luis Carlos Jung [facility] Comment on above: Result Comment: MONITORS OFF; PT UP TO D RESS. DISCHARGE INSTRUCTIONS GIVEN WITH VERBAL UNDERSTANDING. 08-22-2022 15:14-0500 Diastolic blood pressure 71 mm[Hg] Luis Carlos Jung [facility] 08-22-2022 15:14-0500 Heart rate 87 /min Luis Carlos Jung [facility] 08-22-2022 15:14-0500 Hourly Rounding Luis Carlos Jung [facility] 08-22-2022 15:14-0500 Mean blood pressure 86 mm[Hg] Luis Carlos Jung [facility] 08-22-2022 15:14-0500 Respiratory rate 18 /min Luis Carlos Jung [facility] 08-22-2022 15:14-0500 Systolic blood pressure 115 mm[Hg] Luis Carlos Jung [facility] 08-18-2022 12:28-0400 Hourly Rounding Luis Carlos Jung [facility] Comment on above: Result Comment: pt verbalizes understand ing of discharge instructions. pt states she has an appointment sunday with dr jung. pt ambulated out of unit 08-18-2022 10:28-0400 Hourly Rounding Luis Carlos Jung [facility] Comment on above: Result Comment: pt c/o left lower abd pa in. states it is intermittent and sharp. encouraged pt to get up and empty bladder. pt states pain is still 04/23. dr jung on unit & at bedside 08-18-2022 09:09-0400 Hourly Rounding Luis Carlos Jung [facility] Comment on above: Result Comment: pt sitting up in bed wit h breakfast tray, visitor at bedside 08-18-2022 07:15-0400 Blood Pressure Location Luis Carlos Jung [facility] 08-18-2022 07:15-0400 Diastolic blood pressure 56 mm[Hg] Luis Carlos Jung [facility] 08-18-2022 07:15-0400 Heart rate 69 /min Luis Carlos Jung [facility] 08-18-2022 07:15-0400 Mean blood pressure 74 mm[Hg] Luis Carlos Jung [facility] 08-18-2022 07:15-0400 Respiratory rate 16 /min Luis Carlos uJng [facility] 08-18-2022 07:15-0400 Systolic blood pressure 111 mm[Hg] Luis Carlos Fabiana [facility] 08-18-2022 05:58-0400 Blood Pressure Location Luis Carlos Jung [facility] 08-18-2022 05:58-0400 Diastolic blood pressure 59 mm[Hg] Luis Carlos Fabiana [facility] 08-18-2022 05:58-0400 Heart rate 67 /min Luis Carlos Jung [facility] 08-18-2022 05:58-0400 Mean blood pressure 77 mm[Hg] Luis Carlos Jung [facility] 08-18-2022 05:58-0400 Respiratory rate 16 /min Luis Carlos Jung [facility] 08-18-2022 05:58-0400 Systolic blood pressure 113 mm[Hg] Luis Carlos Jung [facility] 08-18-2022 04:06-0400 Blood Pressure Location Luis Carlos Jung [facility] 08-18-2022 04:06-0400 Body temperature 98.06 [degF] Luis Carlos Jung [facility] 08-18-2022 04:06-0400 Diastolic blood pressure 65 mm[Hg] Luis Carlos Jung [facility] 08-18-2022 04:06-0400 Heart rate 70 /min Luis Carlos Jung [facility] 08-18-2022 04:06-0400 Mean blood pressure 79 mm[Hg] Luis Carlos Jung [facility] 08-18-2022 04:06-0400 Respiratory rate 16 /min Luis Carlos Jung [facility] 08-18-2022 04:06-0400 Systolic blood pressure 107 mm[Hg] Luis Carlos Jung [facility] 08-13-2022 20:04-0400 Hourly Rounding Luis Carlos Jung [facility] Comment on above: Result Comment: Patient discharged off u nit. Discharge instructions were reviewed. Pt walks off unit without any notable signs or symtpoms of distress. 08-13-2022 19:45-0400 Hourly Rounding Luis Carlos Jung [facility] 08-13-2022 19:45-0400 Hourly Rounding Luis Carlos Jung [facility] Comment on above: Result Comment: Patient sitting in bed. BPP results reviewed with patient. Pt denied any additional questions. Call light within reach. 08-13-2022 18:12-0400 Heart rate 88 /min Luis Carlos Jung [facility] 08-13-2022 18:12-0400 Nursing Progress Note Reason Other: Pt updated on orders received from . payalzes understanding Luis Carlos Jung [facility] 08-13-2022 18:12-0400 SaO2% (BldA) [Mass fraction] 99 % Luis Carlos Jung [facility] 08-13-2022 17:33-0400 Body temperature 97.88 [degF] Luis Carlos Jung [facility] 08-13-2022 17:33-0400 Diastolic blood pressure 72 mm[Hg] Luis Carlos Jung [facility] 08-13-2022 17:33-0400 Mean blood pressure 88 mm[Hg] Luis Carlos Jung [facility] 08-13-2022 17:33-0400 Respiratory rate 18 /min Luis Carlos Jung [facility] 08-13-2022 17:33-0400 Systolic blood pressure 121 mm[Hg] Luis Carlos Jung [facility] 07-26-2022 10:22-0400 Hourly Rounding Luis Carlos Jung [facility] Comment on above: Result Comment: discharge instructions p rovided and pt signs discharge consent with RN witness. pt preparing for discharge, belly band placed on pt. RN offers wheelchair exit for discharge and pt declines and wants to walk down on own. 07-26-2022 10:22-0400 Promise to Return Luis Carlos Jung [facility] 07-26-2022 10:00-0400 Hourly Rounding Luis Carlos Jung [facility] 07-26-2022 10:00-0400 Promise to Return Luis Carlos Jung [facility] 07-26-2022 09:15-0400 Blood Pressure Location Luis Carlos Jung [facility] 07-26-2022 09:15-0400 Body temperature 97.7 [degF] Luis Carlos Jung [facility] 07-26-2022 09:15-0400 Diastolic blood pressure 62 mm[Hg] Luis Carlos Jung [facility] 07-26-2022 09:15-0400 Heart rate 70 /min Luis Carlos Jung [facility] 07-26-2022 09:15-0400 Hourly Rounding Luis Carlos Jung [facility] 07-26-2022 09:15-0400 Mean blood pressure 74 mm[Hg] Luis Carlos Jung [facility] 07-26-2022 09:15-0400 Respiratory rate 18 /min Luis Carlos Jung [facility] 07-26-2022 09:15-0400 Systolic blood pressure 97 mm[Hg] Luis Carlos Jung [facility] 07-26-2022 09:00-0400 Promise to Return Luis Carlos Jung [facility] 07-26-2022 08:14-0400 Body temperature 98.06 [degF] Luis Carlos Jung [facility] 07-26-2022 08:14-0400 Diastolic blood pressure 66 mm[Hg] Luis Carlso Jung [facility] 07-26-2022 08:14-0400 Heart rate 81 /min Luis Carlos Jung [facility] 07-26-2022 08:14-0400 Mean blood pressure 80 mm[Hg] Luis Carlos Jung [facility] 07-26-2022 08:14-0400 Respiratory rate 18 /min Luis Carlos Jung [facility] 07-26-2022 08:14-0400 Systolic blood pressure 109 mm[Hg] Luis Carlos Jung [facility] 07-17-2022 09:07-0400 Body temperature 97.88 [degF] Ko Dumas [facility] 07-17-2022 09:07-0400 Diastolic blood pressure 74 mm[Hg] Ko Dumas [facility] 07-17-2022 09:07-0400 Heart rate 85 /min Ko Dumas [facility] 07-17-2022 09:07-0400 Respiratory rate 16 /min Ko Dumas [facility] 07-17-2022 09:07-0400 SaO2% (BldA) [Mass fraction] 100 % Ko Dumas [facility] 07-17-2022 09:07-0400 Systolic blood pressure 117 mm[Hg] Ko Dumas [facility] 06-26-2022 21:38-0400 Blood Pressure Location Luis Carlos Jung [facility] 06-26-2022 21:38-0400 Diastolic blood pressure 61 mm[Hg] Luis Carlos Jung [facility] 06-26-2022 21:38-0400 Heart rate 83 /min Luis Carlos Jung [facility] 06-26-2022 21:38-0400 Hourly Rounding Luis Carlos Jung [facility] Comment on above: Result Comment: discharged ambulatory to pov 06-26-2022 21:38-0400 Mean blood pressure 75 mm[Hg] Luis Carlos Fabiana [facility] 06-26-2022 21:38-0400 Respiratory rate 16 /min Luis Carlos Montesinosten [facility] 06-26-2022 21:38-0400 Systolic blood pressure 102 mm[Hg] Luis Carlos Montesinosten [facility] 06-26-2022 21:15-0400 Blood Pressure Location Luis Carlos Fabiana [facility] 06-26-2022 21:15-0400 Diastolic blood pressure 64 mm[Hg] Luis Carlos Montesinosten [facility] 06-26-2022 21:15-0400 Heart rate 74 /min Luis Carlos Jung [facility] 06-26-2022 21:15-0400 Hourly Rounding Luis Carlos Jung [facility] 06-26-2022 21:15-0400 Mean blood pressure 78 mm[Hg] Luis Carlos Montesinosten [facility] 06-26-2022 21:15-0400 Respiratory rate 16 /min Luis Carlos Montesinosten [facility] 06-26-2022 21:15-0400 Systolic blood pressure 106 mm[Hg] Luis Carlos Fabiana [facility] 06-26-2022 21:05-0400 Body temperature 97.88 [degF] Luis Carlos Fabiana [facility] 06-26-2022 21:05-0400 Respiratory rate 18 /min Luis Carlos Jung [facility] 06-26-2022 21:00-0400 Hourly Rounding Luis Carlos Jung [facility] Comment on above: Result Comment: ice water given 06-19-2022 01:30-0400 Hourly Rounding Luis Carlos Jung [facility] Comment on above: Result Comment: updated on plan of care after speaking to dr jung. verb understanding and all d/c instructions provided. denies further needs/concerns. ambulates off unit without any further questions. 06-19-2022 01:00-0400 Hourly Rounding Luis Carlos Jung [facility] Comment on above: Result Comment: rests in bed on phone. d enies any needs. denies any pain at this time or any pain or cramping since arrival. call light within reach 06-19-2022 00:15-0400 Hourly Rounding Luis Carlos Jung [facility] 06-18-2022 23:54-0400 Body temperature 97.88 [degF] Luis Carlos Jung [facility] 06-18-2022 23:54-0400 Diastolic blood pressure 65 mm[Hg] Lui sCarlos Jung [facility] 06-18-2022 23:54-0400 Heart rate 76 /min Luis Carlos Jugn [facility] 06-18-2022 23:54-0400 Mean blood pressure 81 mm[Hg] Luis Carlos Jung [facility] 06-18-2022 23:54-0400 Respiratory rate 18 /min Luis Carlos Jung [facility] 06-18-2022 23:54-0400 Systolic blood pressure 112 mm[Hg] Luis Carlos Jung [facility] 06-18-2022 23:45-0400 Blood Pressure Location Luis Carlos Jung [facility] 05-01-2022 17:45-0400 Hourly Rounding Luis Carlos Jung [facility] Comment on above: Result Comment: reviewed disch inst and meds to take states understanding 05-01-2022 17:30-0400 Hourly Rounding Luis Carlos Jung [facility] 05-01-2022 17:23-0400 Body temperature 98.06 [degF] Luis Carlos Jung [facility] 05-01-2022 17:23-0400 Diastolic blood pressure 57 mm[Hg] Luis Carlos Jung [facility] 05-01-2022 17:23-0400 Heart rate 83 /min Luis Carlos Jung [facility] 05-01-2022 17:23-0400 Mean blood pressure 71 mm[Hg] Luis Carlos Jung [facility] 05-01-2022 17:23-0400 Respiratory rate 16 /min Luis Carlos Jung [facility] 05-01-2022 17:23-0400 Systolic blood pressure 99 mm[Hg] Luis Carlos Jung [facility] 05-01-2022 17:15-0400 Blood Pressure Location Luis Carlos Jung [facility] 05-01-2022 17:15-0400 Hourly Rounding Luis Carlos Jung [facility] 04-02-2022 13:30-0400 Hourly Rounding Luis Carlos Jung [facility] Comment on above: Result Comment: pt given discharge instr uctions at this time to follow up with fabiana sunday or states understanding to call office tomorrow for appointment 04-02-2022 12:30-0400 Hourly Rounding Luis Carlos Jung [facility] Comment on above: Result Comment: pt returns to bed from r estroom at this time denies discomfort at this time 04-02-2022 11:30-0400 Hourly Rounding Luis Carlos Jung [facility] Comment on above: Result Comment: pt sitting in bed at thi s time denies needs or discomfort 04-02-2022 06:28-0400 Body temperature 99.68 [degF] Luis Carlos Jung [facility] 04-02-2022 06:28-0400 Diastolic blood pressure 68 mm[Hg] Luis Carlos Jung [facility] 04-02-2022 06:28-0400 Heart rate 89 /min Luis Carlos Jung [facility] 04-02-2022 06:28-0400 Heart rate 86 /min Luis Carlos Jung [facility] 04-02-2022 06:28-0400 Mean blood pressure 83 mm[Hg] Luis Carlos Jung [facility] 04-02-2022 06:28-0400 Respiratory rate 20 /min Luis Carlos Jung [facility] 04-02-2022 06:28-0400 SaO2% (BldA) [Mass fraction] 98 % Luis Carlos Jung [facility] 04-02-2022 06:28-0400 Systolic blood pressure 114 mm[Hg] Luis Carlos Fabiana [facility] 03-23-2022 21:08-0400 Hourly Rounding Luis Carlos Jung [facility] Comment on above: Result Comment: Patient ambulatory off u nit. No signs or symptoms of distress noted. 03-23-2022 20:35-0400 Hourly Rounding Luis Carlos Jung [facility] Comment on above: Result Comment: Patient updated on plan of care. Verbalizes understanding. Call light in reach. 03-23-2022 19:49-0400 Blood Pressure Location Luis Carlos Jung [facility] 03-23-2022 19:49-0400 Body temperature 98.78 [degF] Luis Carlos Jung [facility] 03-23-2022 19:49-0400 Diastolic blood pressure 66 mm[Hg] Luis Carlos Jung [facility] 03-23-2022 19:49-0400 Heart rate 69 /min Luis Carlos Jung [facility] 03-23-2022 19:49-0400 Hourly Rounding Luis Carlos Jung [facility] Comment on above: Result Comment: Patient arrives on unit. 03-23-2022 19:49-0400 Mean blood pressure 79 mm[Hg] Luis Carlos Jung [facility] 03-23-2022 19:49-0400 Respiratory rate 16 /min Luis Carlos Jung [facility] 03-23-2022 19:49-0400 Systolic blood pressure 106 mm[Hg] Luis Carlos Jung [facility] 10-14-2020 13:15-0500 Pulse (Heart Rate) 74 /min [facility] 10-14-2020 13:15-0500 Pulse Oximetry 98 % [facility] 10-14-2020 13:15-0500 Respiratory Rate 16 /min [facility] 10-14-2020 13:00-0500 BP Diastolic 74 mm[Hg] [facility] 10-14-2020 13:00-0500 BP Systolic 123 mm[Hg] [facility] 10-14-2020 10:13-0500 BMI (Body Mass Index) 34.33 kg/m2 [facility] 10-14-2020 10:13-0500 Body Temperature 97.81 [degF] [facility] 10-14-2020 10:13-0500 Body weight 90.72 kg [facility] 10-14-2020 10:13-0500 Height 162.6 cm [facility] 08-09-2020 20:33-0400 BP Diastolic 81 mm[Hg] [place] 08-09-2020 20:33-0400 BP Systolic 122 mm[Hg] [place] 08-09-2020 20:33-0400 Pulse (Heart Rate) 78 /min [place] 08-09-2020 20:33-0400 Respiratory Rate 16 /min [place] 08-09-2020 19:03-0400 BMI (Body Mass Index) 39.48 kg/m2 [place] 08-09-2020 19:03-0400 Body Temperature 98.29 [degF] [place] 08-09-2020 19:03-0400 Body weight 104.33 kg [place] 08-09-2020 19:03-0400 Height 162.6 cm [place] 08-09-2020 19:03-0400 Pulse Oximetry 98 % [place] Encounters Encounter Date Encounter Type Care Provider Facility Start: 11-06-2023 End: 11-06-2023 ambulatory RASHAUN PURVIS Not Available Start: 11-04-2023 End: 11-04-2023 OB Triage Rashaun PURVIS [facility] Start: 10-31-2023 End: 10-31-2023 ambulatory RASHAUN PURVIS Not Available Start: 10-18-2023 End: 10-18-2023 ambulatory DODIE MILLER Not Available Start: 10-03-2023 End: 10-03-2023 ambulatory DODIE MILLER Not Available Start: 09-12-2023 End: 09-12-2023 ambulatory RASHAUN PURVIS Not Available Start: 08-23-2023 End: 08-23-2023 Lab Drop off ZORAN MYRICK [facility] Start: 08-23-2023 End: 08-24-2023 ambulatory [employer] ZORAN J ELEN [place] Start: 08-19-2023 End: 09-14-2023 Pre-admission assessment Julia Haywood [facility] Start: 08-18-2023 End: 08-18-2023 ambulatory DO Julia Wallace Haywood [place] Start: 08-18-2023 End: 08-18-2023 OB Triage Julia JPatricia Haywood [facility] Start: 07-25-2023 End: 07-25-2023 Emergency department patient visit Kristian Guillermo Facility[place] Start: 07-25-2023 End: 07-25-2023 Emergency department patient visit Kristian Guillermo [facility] Start: 06-28-2023 End: 06-29-2023 ambulatory Roverto V. Spasic Facility[place] Start: 06-28-2023 End: 06-28-2023 Patient encounter procedure Roverto V. Spasic [facility] Start: 06-14-2023 End: 06-14-2023 Emergency department patient visit Kristian Guillermo Facility[place] Start: 06-14-2023 End: 06-14-2023 Emergency department patient visit Kristian Guillermo [facility] Start: 06-12-2023 End: 06-13-2023 ambulatory Luis Carlos Jung Facility[place] Start: 06-12-2023 End: 06-12-2023 Patient encounter procedure Luis Carlos Jung [facility] Start: 05-21-2023 End: 05-22-2023 Emergency department patient visit DO Gopi Rodriguez Facility[place] Start: 05-21-2023 End: 05-21-2023 Emergency department patient visit Gopi Rodriguez [facility] Start: 04-30-2023 End: 05-01-2023 ambulatory Luis Carlos Jung Facility[place] Start: 04-30-2023 End: 04-30-2023 Lab Drop off Luis Carlos Jung [facility] Start: 04-30-2023 End: 05-01-2023 ambulatory Luis Carlos Jung Facility[place] Start: 04-30-2023 End: 04-30-2023 Patient encounter procedure Luis Carlos Jung [facility] Start: 04-26-2023 End: 04-26-2023 Emergency department patient visit Laura Leonfelipe Facility[place] Start: 04-26-2023 End: 04-26-2023 Emergency department patient visit Vimalelena Charles Bert [facility] Start: 01-31-2023 End: 01-31-2023 Emergency department patient visit Kristian Guillermo Facility[place] Start: 01-31-2023 End: 01-31-2023 Emergency department patient visit Kristian Guillermo [facility] Start: 09-24-2022 End: 09-27-2022 Evaluation and management of inpatient Luis Carlos Jung Facility[place] Start: 09-22-2022 End: 09-22-2022 ambulatory Luis Carlos Jung Facility[place] Start: 09-22-2022 End: 09-22-2022 OB Triage Luis Carlos Jung [facility] Start: 09-20-2022 End: 09-20-2022 ambulatory Luis Carlos Jung Facility[place] Start: 09-20-2022 End: 09-20-2022 OB Triage Luis Carlos Jung [facility] Start: 09-19-2022 End: 09-19-2022 ambulatory Jj MIKE Facility[place] Start: 09-19-2022 End: 09-19-2022 OB Triage Jj MIKE [facility] Start: 09-14-2022 End: 09-14-2022 ambulatory Luis Carlos Jung Facility[place] Start: 09-14-2022 Emergency department patient visit DO Gopi Rodriguez Facility[place] Start: 09-14-2022 End: 09-14-2022 OB Triage Luis Carlos Jung [facility] Start: 09-12-2022 End: 09-12-2022 ambulatory Luis Carlos Jung Facility[place] Start: 09-12-2022 End: 09-12-2022 OB Triage Luis Carlos Jung [facility] Start: 09-08-2022 End: 09-08-2022 ambulatory Luis Carlos Jung Facility[place] Start: 09-08-2022 End: 09-08-2022 OB Triage Luis Carlos Jung [facility] Start: 09-06-2022 End: 12-06-2022 ambulatory Luis Carlos Jung Facility[place] Start: 09-05-2022 End: 09-06-2022 Emergency department patient visit DO Gopi Rodriguez Facility[place] Start: 09-05-2022 End: 09-05-2022 Emergency department patient visit Gopi Rodriguez [facility] Start: 09-05-2022 End: 12-05-2022 Patient encounter procedure SELF REFERRAL [facility] Start: 09-04-2022 End: 09-05-2022 ambulatory Luis Carlos Rochelle Jung Facility[place] Start: 09-04-2022 End: 09-04-2022 Lab Drop off Luis Carlos Rochelle Jung [facility] Start: 08-30-2022 End: 08-31-2022 ambulatory Luis Carlos Rochelle Jung Facility[place] Start: 08-30-2022 End: 08-31-2022 OB Triage Luis Carlos Rochelle Jung [facility] Start: 08-22-2022 End: 08-22-2022 OB Triage Luis Carlos Rochelle Jung [facility] Start: 08-18-2022 End: 08-18-2022 OB Triage Luis Carlos Rochelle Jung [facility] Start: 08-13-2022 End: 08-13-2022 OB Triage Luis Carlos Byrd Fabiana [facility] Start: 07-26-2022 End: 07-26-2022 OB Triage Luis Carlos Byrd Fabiana [facility] Start: 07-17-2022 End: 07-17-2022 Emergency department patient visit Ko Dumas [facility] Start: 06-28-2022 End: 06-28-2022 Patient encounter procedure Luis Carlos Byrd Fabiana [facility] Start: 06-26-2022 End: 06-26-2022 OB Triage Luis Carlos Byrd Fabiana [facility] Start: 06-20-2022 End: 07-15-2022 Pre-admission assessment Luis Carlos Jung [facility] Start: 06-18-2022 End: 06-19-2022 OB Triage Luis Carlos Byrd Fabiana [facility] Start: 05-02-2022 End: 06-15-2022 Pre-admission assessment THANG MILLAN [facility] Start: 05-01-2022 End: 05-01-2022 OB Triage Luis Carlos Byrd Fabiana [facility] Start: 04-02-2022 End: 04-02-2022 OB Triage Luis Carlos Byrd Fabiana [facility] Start: 03-23-2022 End: 03-23-2022 OB Triage Luis Carlos Byrd Fabiana [facility] Start: 03-16-2022 End: 03-16-2022 Patient encounter procedure Luis Carlos Jung [facility] Start: 02-15-2022 End: 02-15-2022 Lab Drop off Luis Carlos Jung [facility] Start: 02-23-2021 End: 02-23-2021 Patient encounter procedure Martha Webb MD Work Phone: [facility] Start: 02-23-2021 Results Only Martha Webb MD Work Phone: Gastroenterology Start: 10-14-2020 End: 10-14-2020 Emergency department patient visit PHYSICIAN NO [facility] Start: 10-14-2020 End: 10-14-2020 Emergency department patient visit Regine Chow Work Phone: [facility] Emergency Department Comment on above: Vertigo (Primary Dx) Start: 08-09-2020 End: 08-09-2020 Emergency department patient visit [facility] Start: 08-09-2020 End: 08-09-2020 Emergency department patient visit [facility] Work Phone: [facility] ED Comment on above: Contusion of right k nee, initial encounter (Primary Dx); Contusion of multiple sites of right shoulder and upper arm, initial encounter Start: 07-23-2017 End: 07-23-2017 Emergency department patient visit NKECHI TORRES [facility] Guerra Procedures Date Procedure Procedure Detail [...] 05-12-2028 Tetanus vaccination Tetanus: Every 1 0yrs [facility] Start: 06-15-2021 Influenza vaccination INFLUENZ A (Season Ended) [facility] Start: 06-15-2020 Influenza vaccination Flu vaccine (# 1) [place], [place] Start: 2014 PAP TESTING PAP TESTING [facility] Start: 2014 Screening for malign ant neoplasm of cervix Cervical cancer screen [place], [place] Start: 2012 DTaP/Tdap/Td vaccine (1 - Tdap) DTaP/Tdap/Td vaccine (1 - Tdap) [place] Start: 2012 Urine microalbumin profile DTAP,TDAP,TD (1 - Tdap) [facility] Start: 2011 Hepatitis C antibody , confirmatory test Hepatitis C Screening [facility] Start: 2011 HEPATITIS C SCREENING HEPATITIS C SC REENING [facility] Start: 2011 HIV SCREENING HIV SCREENING [facility] Start: 2008 [facility] [place] [place] Start: 2005 Adolescent depressio n screening assessment [facility] Start: 2004 HPV vaccine (1 - 2-d ose series) HPV vaccine (1 - 2-dose series) [place], [place] Start: 1996 History and physical examination, annual for health maintenance Wellness Visit [facility] Start: 1994 Varicella vaccine (1 of 2 - 2-dose childhood series) Varicella vaccine (1 of 2 - 2-dose childhood series) [place] Start: 1993 Screening for malign ant neoplasm of cervix Pap Smear [facility] PT ED PATIENT INFORMATION PT ED PATIENT INFORMATION Other 02/23/2021 [facility] Immunizations Immunization Date Immunization Notes Care Provider Lennox ramirez 08-18-2023 influenza, seasonal, injectable Julia Haywood [facility] 09-25-2022 influenza, seasonal, injectable SELF REFERRAL [facility] Comment on above: Early/Late Reason: E isaac/Late Reason: Nursing Judgment 01-28-2021 COVID-19, mRNA, LNP- S, PF, 30 mcg/0.3 mL dose; Translations: [[employer] COVID-19 Vaccine] Luis Carlos Jung [facility] Comment on above: Reason for Medicatio n: Prophylaxis Reason for Medicatio n: Prophylaxis 12-31-2020 COVID-19, mRNA, LNP- S, PF, 30 mcg/0.3 mL dose; Translations: [Pfizer-BioNTech COVID-19 Vaccine] Luis Carlos Fabiana [facility] Comment on above: Reason for Medicatio n: Prophylaxis Reason for Medicatio n: Prophylaxis 05-12-2018 tetanus toxoid, reduced diphtheria toxoid, and acellular pertussis vaccine, adsorbed; Translations: [Adacel (Tdap)] Lius Carlos Fabiana [facility] Payers Date Payer Category Payer Unknown [id number] 2019 Unknown [id number] 1. [id number] 1993 Unknown [id number] 2.16.8 40.1.367308.3.579.2.173 1993 Unknown [id number] 2.16. 840.1.446254.3.579.2.903 1993 Unknown [id number] 2.16.8 40.1.567609.3.579.2.727 1993 Unknown [id number] 2.16.8 40.1.830764.3.579.2.727 1993 Unknown [id number] 2.16.8 40.1.980850.3.579.2.727 1993 Unknown [id number] 2.16.8 40.1.530235.3.579.2.727 1993 Unknown [id number] 2.16.8 40.1.178300.3.579.2.727 1993 Unknown [id number] 2.16.8 40.1.905416.3.579.2.727 1993 Unknown [id number] 2.16.8 40.1.981940.3.579.2. 1993 Unknown [id number] 2.16.8 40.1.104686.3.579.2. 1993 Unknown [id number] 2.16.8 40.1.196904.3.579.2. 1993 Unknown [id number] 2.16.8 40.1.309677.3.579.2. 1993 Unknown [id number] 2.16.8 40.1.056286.3.579.2. 1993 Unknown [id number] 2.16.8 40.1.046712.3.579.2. 1993 Unknown [id number] 2.16.8 40.1.152379.3.579.2 1993 Unknown [id number] 2.16.8 40.1.115278.3.579.2 1993 Unknown [id number] 2.16.8 40.1.547080.3.579.2 1993 Unknown [id number] 2.16.8 40.1.618451.3.579.2 1993 Unknown [id number] 2.16.8 40.1.072168.3.579.2. 1993 Unknown [id number] 2.16.8 40.1.583740.3.579.2. 1993 Unknown [id number] 2.16.8 40.1.844000.3.579.2. 1993 Unknown [id number] 2.16.8 40.1.781085.3.579.2. 1993 Unknown [id number] 2.16.8 40.1.784007.3.579.2. 1993 Unknown [id number] 2.16.8 40.1.072960.3.579.2 1993 Unknown [id number] 2.16.8 40.1.651427.3.579.2.727 1993 Unknown [id number] 2.16.8 40.1.194531.3.579.2.727 1993 Unknown [id number] 2.16.84 0.1.561611.3.579.2.1259 1993 Unknown [id number] 2.16.84 0.1.413003.3.579.2.1259 1993 Unknown [id number] 2.16.840 .1.644020.3.579.2.1259 1993 Unknown [id number] 2.16.840 .1.551259.3.579.2.1259 1993 Unknown [id number] 2.16.840 .1.168923.3.579.2.1259 1993 Unknown [id number] 2.16.840 .1.484378.3.579.2.1259 Social History Date Type Detail Facility Start: 08-09-2020 End: 10-14-2020 Tobacco smoking status NHIS Current every day smoker [place] Start: 08-09-2020 End: 10-14-2020 Tobacco use and exposure Never used [place] Start: 10-14-2020 Alcohol intake Ex-drinker (finding) [facility] Start: 1993 Sex Assigned At Not on file [place] Exposure to SARS-CoV -2 (event) Not sure [place] Start: 08-09-2020 Cigarettes smoked current (pack per day) - Reported [place] Start: 08-09-2020 Alcohol intake Lifetime non-d val (finding) [place] Start: 08-09-2020 History SDOH Alcohol Frequency 1 [place] Start: 07-06-2021 End: 08-18-2022 Tobacco smoking status Light tobacco smoker (finding) [facility] Sex Assigned At Female [facility] Tobacco [facility] Comment on above: current current denies Start: 06-28-2023 Tobacco smoking status Ex-smoker (fi nding) [facility] Comment on above: current Tobacco smoking status Never [facility] Comment on above: current Tobacco smoking status No Smokin g Status Entered [facility] Functional Status Date Assessment Result Facility 11-04-2023 Functional Status N/A [facility] 08-18-2023 Functional Status N/A [facility] 07-25-2023 Functional Status N/A [facility] 06-28-2023 Functional Status N/A [facility] 06-14-2023 Functional Status N/A [facility] 05-21-2023 Functional Status N/A [facility] 04-26-2023 Functional Status N/A [facility] 01-31-2023 Functional Status N/A [facility] 09-22-2022 Functional Status N/A [facility] 09-20-2022 Functional Status N/A [facility] 09-19-2022 Functional Status N/A [facility] 09-14-2022 Functional Status N/A [facility] 09-12-2022 Functional Status N/A [facility] 09-08-2022 Functional Status N/A [facility] 09-05-2022 Functional Status Yes [facility] 08-30-2022 Functional Status N/A [facility] 08-22-2022 Functional Status N/A [facility] 08-18-2022 Functional Status N/A [facility] 08-13-2022 Functional Status N/A [facility] 07-26-2022 Functional Status N/A [facility] 07-17-2022 Functional Status N/A [facility] 06-26-2022 Functional Status N/A [facility] 06-18-2022 Functional Status N/A [facility] 05-01-2022 Functional Status N/A [facility] 04-02-2022 Functional Status N/A [facility] Clinical Notes 03-10-2021 to 11-04-2023 Note Date & Type Note Facility 11-04-2023 Evaluation + Plan note Diagnostic Tests PendingUrine Culture 11/04/23 [facility] 11-04-2023 Hospital Discharg e instructions Follow Up Care 11/04/2023 07:55:34 With:Rashaun PURVIS Address: [address] [place] [address]- Business (1) When:11/06/2023 Comments:Call for any problems.Appointment has already been scheduledCall physician if symptoms worsenPlease call if you need to rescheduleReturn for contractions closer, longer, harderReturn for decreased movementReturn if ruptured membranes or vaginal bleeding [facility] 08-23-2023 Evaluation + Plan note Diagnostic Tests PendingT3 Total 08/23/23 [facility] 08-18-2023 Note The following Any t Education Materials have been given to the patient: EducationMaterial [facility] 08-18-2023 Hospital Discharg e instructions Patient Education 08/18/2023 08:14:46 Second Trimester of , Rcoj-zu-Iihi Second Trimester of The second trimester of [...] Follow these instructions at home: Medicines Take osce-jwy-lctsvcn and prescription medicines only as told by [...] a counselor. Where to find more information [employer]: [email or web address].org [employer]: [email or web address] Office [...] provider. Document Revised: 03/09/2021 Document Reviewed: 01/13/2021 [employer] Patient Education 2022 [employer]. [facility] 07-25-2023 Evaluation + Plan note [...] Diagnostic Tests Pending * Urine Culture 07/25/23 [facility]10-11-2023 Hospital Discharge instructions Patient Education [...] to keep your urine pale yellow. Take mhgw-boq-jkdduse and prescription medicines only as told by [...] provider. Document Revised: 06/14/2021 Document Reviewed: 06/14/2021 [employer] Patient Education 2022 [employer] Follow Up Care 07/25/2023 08:14:26 With:Luis Carlos Jung Address: [facility] [address], [place] [id number] [facility] (1) When:07/28/2023 09:56:27 [facility]09-14-2023 Evaluation + Plan note Diagnostic Tests Pending * Urine Culture 06/28/23 [facility]09-14-2023 Hospital Discharge instructions Patient Education 06/28/2023 11:39:14 Urinary Tract Infection, Adult, Xkmr-hl-Pqvr Urinary Tract Infection, Adult A urinary tract [...] Follow these instructions at home: Medicines Take juoy-sdx-ckuakpk and prescription medicines only as told by [...] provider. Document Revised: 05/13/2021 Document Reviewed: 05/13/2021 [employer] Patient Education 2022 [employer]. 06/28/2023 11:39:14 Urinary Tract Infection, Adult, Pkpj-wn-Tiim Urinary Tract Infection, Adult A urinary tract [...] Follow these instructions at home: Medicines Take vvuv-fgd-bmrpgzw and prescription medicines only as told by [...] provider. Document Revised: 05/13/2021 Document Reviewed: 05/13/2021 [employer] Patient Education 2022 [employer]. Follow Up Care 06/28/2023 10:22:58 With:Fabiana MARION, SAMPSON Buenrostro Address: [address] [place] [address]- When: Unknown [facility] [id number] Evaluation + Plan noteExtracted from: Title:ED Note Author:Jos Ugalde PA-C te:06/14/23 1. Abdominal pain (R10.9: Un specified abdominal pain) Orders: ABO/Rh Automated Diff Basic Metabolic Panel Beta hCG Quantitative CBC w/ Auto Diff eGFR Extra Blue Tube Extra SST Tube Hepatic Function Panel Lipase Level UA With Cult Reflex US 1st Trimester [facility]08-08-2023 Hospital Discharge instructions Patient Education 05/21/2023 23:23:44 Nonspecific Chest Pain, Adult, Qbsh-kc-Bhkz Nonspecific Chest Pain Chest pain can be [...] Follow these instructions at home: Medicines Take evfi-xgf-bjsbixi and prescription medicines only as told by [...] Document Reviewed: 12/15/2021 Elsevier Patient Education 2022 [employer]. 05/21/2023 23:23:44 Nausea and Vomiting, Adult, Ymtb-tc-Djyb Nausea and Vomiting, Adult Nausea is feeling [...] fruit juice). ?Low-calorie sports drinks. Eat bland, citn-ju-pamjds foods in small amounts as you are able, such as: ?Bananas. ?Applesauce. ?Rice. ?Low-fat (lean) meats. ?[place]. ?Crackers. Avoid drinking fluids that have a lot of sugar or caffeine in them. This includes energy drinks, sports drinks, and soda. Avoid alcohol. Avoid spicy or fatty foods. General instructions Take teij-hro-ztkytcm and prescription medicines only as told by your doctor. Drink enough fluid to keep your pee (urine) pale yellow. Wash your hands often with soap and water for at least 20 seconds. If you cannot use soap and water, use hand chain puller. Make sure that everyone in your home [...] your doctor about eating and drinking. Take brcf-mcl-tmandsp and prescription medicines only as told by your doctor. Contact your doctor if your symptoms get worse or you have new symptoms. Keep all follow-up visits. This information is not intended to replace advice given to you by your health care provider. Make sure you discuss any questions you have with your health care provider. Document Revised: 04/07/2022 Document Reviewed: 04/07/2022 [employer] Patient Education 2022 [employer] 05/21/2023 23:23:44 Abdominal Pain During , Kbnn-sg-Ejjy Abdominal Pain During Belly (abdominal) pain is [...] keep your pee (urine) pale yellow. Take jwza-zin-rmappzo and prescription medicines only as told by [...] provider. Document Revised: 06/14/2021 Document Reviewed: 06/14/2021 [employer] Patient Education 2022 [employer]. Follow Up Care 05/21/2023 20:38:52 With:Luis Carlos Jung Address: [facility] [address] [address] Business (1) When:05/24/2023 Comments:Take the Pepcid once daily until you have completed the course. You can use the Zofran every 6 hours as needed for nausea and vomiting. Please follow-up with your primary care doctor next 2 to 3 days. Please return to the ED for any new or worsening symptoms. [facility]08-07-2023 Evaluation + Plan noteExtracted from: [...] # 15 cap(s), Refills(s) 0, Pharmacy: [facility], 162.6, cm, 05/21/23 20:50:00 EDT, Height/Length Dosing, 75.3, kg, 05/21/23 20:50:00 EDT, Weight Dosing famotidine, 20 mg = 2 mL, Soln-IV, IV Push, Once, Stop date 05/21/23 21:00:00 EDT, STAT, Start date 05/21/23 21:00:00 EDT, 05/21/23 21:00:00 EDT famotidine, 20 mg = 1 tab(s), Oral, Daily, # 14 tab(s), Refills(s) 0, Pharmacy: [facility], 162.6, cm, 05/21/23 20:50:00 [...] UA With Cult Reflex US 1st Trimester [facility]07-17-2023 Evaluation + Plan note Diagnostic Tests Pending * PAP [id number] 04/30/23 * Urine Culture 04/30/23 [facility]07-17-2023 Evaluation + Plan note Diagnostic Tests Pending * RPR with Conf Rfx 04/30/23 * HIV Screen 4th Generation wRfx 04/30/23 * Rubella Antibody IgG 04/30/23 * Hepatitis B Surface Antigen 04/30/23 [facility]07-13-2023 Evaluation + Plan noteExtracted from: Title:ED Note Author:Jos Ugalde PA-C te:04/26/23 Abdominal pain (R10.9: Unspe cified abdominal pain) (Z34.90: Encounter for supervision of normal , unspecified, unspecified trimester) Orders: Beta hCG Quantitative Extra Lav Tube Extra SST Tube US 1st Trimester US Transvaginal [facility]07-13-2023 Hospital Discharge instructions Patient Education [...] to keep your urine pale yellow. Take hhtr-fdy-dbyveck and prescription medicines only as told by [...] provider. Document Revised: 06/14/2021 Document Reviewed: 06/14/2021 [employer] Patient Education 2022 [employer]. Follow Up Care 04/26/2023 08:52:22 With:Luis Carlos Jung Address: [address] [place], [place] [id number] [facility] (1) When:04/29/2023 10:58:02 [facility]04-19-2023 Evaluation + Plan noteExtracted from: [...] Head eGFR Oxygen Therapy PT & PTT [facility]04-19-2023 Hospital Discharge instructions Patient Education [...] Follow these instructions at home: Medicines Take gylx-xjj-gglhweb and prescription medicines only as told by your health care provider. Ask your health care provider if the medicine prescribed to you: ?Requires you to avoid driving or using heavy machinery. ?Can cause constipation. You may need to take these actions to prevent or treat constipation: ?Drink enough fluid to keep your urine pale yellow. ?Take coyr-eoe-alyiyou or prescription medicines. ?Eat foods that are [...] provider. Document Revised: 01/23/2020 Document Reviewed: 11/13/2019 [employer] Patient Education 2022 [employer]. Follow Up Care 01/31/2023 09:42:02 With:THANG BELINDA Address: [address] [place] [id number] Business (1) When:02/03/2023 11:57:07 Comments:Call the office [...] fever, or any new or worsening symptoms. [facility]12[facility]16[facility] Comment: Electronically Signed By: Luis Carlos Jung MD\.br\Date and Time Signed: 09/29/22 09:25 [id number] [facility] Comment on above:Result Comment: Electronically Signed By: Luis Carlos Jung MD\.br\Date and Time Signed: 09/29/22 09:25 [id number] NoteThe following Patient Education Materials have been given to the patient: [facility] NoteThe following Patient Education Materials have been given to the patient: [facility]12-09-2022 Hospital Discharge instructions Follow Up Care 09/22/2022 15:11:14 With:Luis Carlos Jung Address: [address] [place] [address]- [facility] (1) When:09/24/2022 20:30:00 Comments:Appointment has already been scheduledCall for any problems.Call for fever > 100.5 FCall for severe abdominal painCall physician for heavy vaginal bleedingCall physician if symptoms worsenReturn for contractions closer, longer, harderReturn for decreased movementReturn if ruptured membranes or vaginal bleedingCall at 7:30 pm Sunday to confirm induction at 8:30 [facility]12-07-2022 NoteThe following Patient Education Materials have been given to the patient: [facility]12-06-2022 NoteThe following Patient Education Materials have been given to the patient: [facility]12-06-2022 Hospital Discharge instructions Follow Up Care 09/19/2022 01:24:08 With:Luis Carlos Jung Address: [facility] [address] [facility] [address] [place] [address] [facility] (1) When:09/20/2022 Comments:Appointment has already been scheduledCall Dr if fever>100.5 F, heavy bleedingCall for any problems.Call for severe abdominal painCall physician for heavy vaginal bleedingCall physician if symptoms worsenReturn for contractions closer, longer, harderPlease call if you need to rescheduleReturn for decreased movementReturn if ruptured membranes or vaginal bleeding [facility]12-01-2022 NoteThe following Patient Education Materials have been given to the patient: [facility]12-01-2022 Hospital Discharge instructions Patient Education 09/14/2022 11:56:10 Sinus Headache, Vrak-pk-Dica Sinus Headache A sinus headache happens when [...] on the bottle or box. Medicines Take bfue-cmp-iwnqkus and prescription medicines only as told by [...] face, forehead, ears, or upper teeth. Take xfcb-pmh-uxbaawe and prescription medicines only as told by your doctor. If told, apply a warm, moist washcloth to your face. This can help to lessen pain. This information is not intended to replace advice given to you by your health care provider. Make sure you discuss any questions you have with your health care provider. Document Released: 01/31/2012 Document Revised: 09/13/2018 Document Reviewed: 07/12/2018 [employer] Patient Education 2020 [employer] Follow Up Care 09/14/2022 09:13:06 With:Luis Carlos Jung Address: [address], [facility] [address] [place] [address] Business (1) When:09/20/2022 Comments:Return if ruptured membranes or vaginal bleedingReturn for decreased movementReturn for contractions closer, longer, harderCall physician if symptoms worsenCall for severe abdominal painCall for fever > 100.5 F Drink 8-10 glasses of water/day Use SUDAFED, TYLENOL AND BENADRYL as previouslydirected by Dr Fabiana Longoria - [facility]11-29-2022 NoteThe following Patient Education Materials have been given to the patient: EducationMateriTiffanie [facility]11-29-2022 Hospital Discharge instructions Patient Education 09/12/2022 20:39:28 Third Trimester of , Ufls-sv-Mppm Third Trimester of The third trimester is from week 28 through week 40 (months 7 through 9). This trimester is when your unborn baby (fetus) is growing very fast. At the end of the ninth month, the unborn baby is about20 inches in length. It weighs about 6 10 pounds. Follow these instructions at home: Medicines Take gwkj-fdt-psyjdhr and prescription medicines only as told by [...] 12/26/2010 Document Revised: 01/22/2020 Document Reviewed: 11/06/2017 [employer] Patient Education 2020 [employer]. Follow Up Care 09/12/2022 19:44:10 With:Luis Carlos Jung Address: [address] [place] [address] [facility] (1) When:09/20/2022 Comments:Appointment has already been scheduledCall Dr if fever>100.5 F, heavy bleedingCall for any problems.Call for severe abdominal painCall physician for heavy vaginal bleedingCall physician if symptoms worsenPlease call if you need to rescheduleReturn for contractions closer, longer, harderReturn for decreased movementReturn if ruptured membranes or vaginal bleeding [facility]11-25-2022 NoteThe following Patient Education Materials have been given to the patient: [facility] Discharge instructions Follow Up Care 09/08/2022 08:14:23 With:Luis Carlos Jung Address: [address] [place] [address]- [facility] (1) When:09/11/2022 Comments:Return for contractions closer, longer, harderReturn for decreased movementReturn if rupturedmembranes or vaginal bleeding [facility]11-23-2022 Hospital Discharge instructions Patient Education [...] the coronavirus come from? In September 2019, [place] told the World Health Organization (WHO) of several cases of lung disease (human respiratory illness). These cases were linked to an open seafood and livestock market in the [facility]. The link to the seafood [...] and virus naming World Health Organization (WHO): www.who.int/emergencies/diseases/clcfz-rokowthakpt-7953/technical-g uidance/vnbrzg-vfq-yacrkspgzfe-disease-(covid-2019)-deh-eyu-ssrli-zrlv-fbname-az Who is at risk for complications from [...] relieve his or her symptoms by using rjwm-ust-nowegcl medicines that treat sneezing, coughing, and runny [...] water are not available, use alcohol-based hand chain puller. Avoid touching your face, mouth, nose, or [...] Prevention (CDC): www.cdc.gov/coronavirus/2019-ncov/travelers/index.html World Health Organization (WHO): www.who.int/emergencies/diseases/uxuun-ncqwfrixtny-9671/travel-advice Know the risks and take action to [...] water are not available, use alcohol-based hand chain puller. Cough or sneeze into a tissue, sleeve, [...] in hot, soapy water or use a hiv cts specialist. Air-dry your dishes. Wash laundry in hot [...] Health Organization (WHO) Information and news updates: www.who.int/emergencies/diseases/vgfcd-tadgjtilsyg-2960 Coronavirus health topic: www.who.int/health-topics/coronavirus Questions and answers on COVID-19: www.who.int/news-room/q-a-detail/e-w-fsvdmowplppvx Global tracker: MYR [place] [employer] (AAP) Information for families: www.healthychildren.org/[place]/health-issues/conditions/chest-lungs/Pages /0516-Bukpe-Zgxihiddmzy.aspx The coronavirus situation is changing rapidly. Check [...] 01/27/2020 Document Revised: 01/27/2020 Document Reviewed: 01/27/2020 [employer] Patient Education 2019 [employer]. 09/05/2022 22:13:40 COVID-19 COVID-19 COVID-19 is a [...] to fight infection (immunocompromised). Live in a prison or long-term care facility. Have a long-term [...] managed at home with rest, fluids, and iwug-exw-agxkyxd medicines. Treatment for a serious infection usually [...] are safe for you. General instructions Take upzf-yce-stgcffz and prescription medicines only as told by [...] water are not available, usean alcohol-based hand chain puller. ?Avoid touching your mouth, face, eyes, or [...] water are not available, use alcohol-based hand chain puller. Stay away from other members of your [...] have a weak immunity, live in a prison, or have chronic disease. There is no [...] 11/06/2019 Document Revised: 02/26/2020 Document Reviewed: 11/06/2019 [employer] Patient Education 2020 [employer]. Follow Up Care 09/05/2022 20:08:29 With:Luis Carlos Jung Address: [address] [place], [place] [address] [address] Business (1) When:09/08/2022 21:42:10 Comments:Use the albuterol inhaler 2 puffs every 4 hours for the next 2 to 3 days, you can use the Zofran every 6 hours as needed for nausea and vomiting. Please follow-up with your primary care doctor in thenext 2 to 3 days. Please return to the ED for any new or worsening symptoms. With:THANG MILLAN Address: [address] [place] [address] Business (1) When:09/08/2022 21:42:06 [facility]11-22-2022 Evaluation + Plan noteExtracted from: [...] # 12 tab(s), Refills(s) 0, Pharmacy: [facility], 163, cm, 09/05/22 20:14:00 [...] Therapy PT & PTT Rapid COVID Antigen [place] Saline Lock Insert Troponin 0 Hr. XR Chest Single View Future Appointments Appointment Date:09/06/2022 07:00:00 AM Scheduled Provider: [facility] Type:Outpatient COVID Testing [facility]11-21-2022 Evaluation + Plan note Diagnostic Tests Pending * Group B Streptococcus colonization by PCR 09/04/22 [facility]11-17-2022 NoteThe following Patient Education Materials have been given to the patient: EducationMateriTiffanie [facility]11-17-2022 Hospital Discharge instructions Patient Education 08/31/2022 00:56:47 Third Trimester of , Milr-pl-Ncdd Third Trimester of The third trimester is from week 28 through week 40 (months 7 through 9). This trimester is when your unborn baby (fetus) is growing very fast. At the end of the ninth month, the unborn baby is about20 inches in length. It weighs about 6 10 pounds. Follow these instructions at home: Medicines Take nbfd-vls-ckezvfq and prescription medicines only as told by [...] 12/26/2010 Document Revised: 01/22/2020 Document Reviewed: 11/06/2017 [employer] Patient Education 2020 [employer]. Follow Up Care 08/30/2022 21:31:53 With:Luis Carlos Jung Address: [address] [address]- Business (1) When:09/04/2022 Comments:Call for any problems.Call for severe abdominal painCall physician for heavy vaginal bleedingReturnfor contractions closer, longer, harderReturn for decreased movementReturn if ruptured membranes or vaginal bleeding [facility]11-08-2022 Hospital Discharge instructions Follow Up Care 08/22/2022 14:58:59 With:Dr. 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..] 10/31/2007 Document Revised: 10/21/2019 Document Reviewed: 11/09/2016 [employer] Patient Education 2020 [employer] 08/13/2022 19:55:11 Monitoring Overview Monitoring Overview [...] 09/21/2003 Document Revised: 06/25/2018 Document Reviewed: 04/30/2017 [employer] Patient Education 2020 [employer] Follow Up Care 08/13/2022 17:29:42 With:Luis Carlos Jung Address: [address] [place] [id number] Business (1) When:1 to 2 days Comments:Call for any problems.Return for contractions closer, longer, harderReturn for decreased movementReturn if ruptured membranes or vaginal bleeding [facility]10-13-2022 Hospital Discharge instructions Follow Up Care 07/27/2022 01:12:54 With:Dr. Jung [phone] Address:Unknown When:09/24/2022 20:30:00 Comments:Call for any problems.Return if ruptured membranes or vaginal bleedingReturn for decreased movementcontractions every 5 minutes lasting 45 seconds for an hourCall Sunday night at 7:30 PM to assure bed availability for induction [facility]10-12-2022 Hospital Discharge instructions Patient Education [...] Follow these instructions at home: Medicines Take moze-xss-cuqrqdk and prescription medicines only as told by [...] as fried or sweet foods. ?Take an kwyl-ymj-nomwdjr or prescription medicine for constipation. If you [...] 12/28/2009 Document Revised: 05/28/2019 Document Reviewed: 11/11/2018 [employer] Patient Education 2019 [employer]. Follow Up Care 07/26/2022 07:56:25 With:Luis Carlos Jung Address: [address] [address] Business (1) When:08/07/2022 07:45:00 [facility]10-03-2022 Evaluation + Plan noteExtracted from: Title:ED Note Author:Hi Carmona PA-C te:07/17/22 UTI (urinary tract infection ) (N39.0: Urinary tract infection, site not specified) Orders: cephalexin, 500 mg = 1 cap(s), Oral, q12hr, X 5 day(s), # 10 cap(s), Refills(s) 0, Pharmacy: [facility], 162.5, cm, 07/17/22 9:09:00 EDT, Height/Length Dosing, 80, kg, 07/17/22 9:09:00 EDT, Weight Dosing Patient Specific Meds, Each, Misc, Once, Stop date 07/17/22 9:10:34 EDT, Physician Stop, 07/17/22 9:10:34 EDT Influenza A&B Ag Rapid COVID Antigen [place] UA With Cult Reflex [facility]10-03-2022 Hospital Discharge instructions Patient Education [...] 01/26/2012 Document Revised: 01/23/2020 Document Reviewed: 09/04/2019 [employer] Patient Education 2020 [employer]. 07/17/2022 09:55:44 Urinary Tract Infection, Adult Urinary [...] Treatment for this condition includes: Antibiotic medicine. Dvhi-tyi-klkaale medicines to treat discomfort. Drinking enough water [...] Follow these instructions at home: Medicines Take esep-zgj-ohanzcn and prescription medicines only as told by [...] 07/11/2006 Document Revised: 09/18/2019 Document Reviewed: 04/10/2019 [employer] Patient Education 2020 [employer]. Follow Up Care 07/17/2022 09:04:38 With:Luis Carlos Jung Address: [address] [place] [address] [address] Business (1) When:07/20/2022 09:46:49 With:THANG MILLAN Address: [address] [place] [phone] Business (1) When:07/20/2022 09:46:41 Comments:Follow-up with your primary care provider in 3 to 5 days. If symptoms worsen, do not improve, or new symptoms arise please report back to emergency department for further evaluation. [facility]09-14-2022 Evaluation + Plan note Diagnostic Tests Pending * RPR with Conf Rfx 06/28/22 [facility]09-12-2022 Hospital Discharge instructions Patient Education [...] 09/21/2003 Document Revised: 06/25/2018 Document Reviewed: 04/30/2017 [employer] Patient Education 2020 [employer] 06/26/2022 21:35:59 Form - Movement Counts [...] With:Luis Carlos Jung Address: [address] [place] [address] [place] [address] [facility] (1) When:07/03/2022 07:45:00 Comments:Call for any problems.Please call if you need to rescheduleReturn for decreased movement [facility]09-05-2022 Hospital Discharge instructions Follow Up Care 06/18/2022 23:33:38 With:Luis Carlos Jung Address: [address], [facility] [address] [place] [address] Business (1) When:5 to 7 days Comments:Appointment has already been scheduledCall for any problems.Call for fever > 100.5 FCall for severe abdominal painCall physician for heavy vaginal bleedingPlease call if you need to rescheduleReturn for contractions closer, longer, harderReturn for decreased movementReturn if ruptured membranes or vaginal bleeding [facility]07-18-2022 Hospital Discharge instructions Follow Up Care 05/01/2022 17:08:54 With:Luis Carlos Jung Address: [address], [facility] [place] [address]- Business (1) When:05/09/2022 Comments:Return if ruptured membranes or vaginal bleedingReturn for contractions closer, longer, harderCall physician if symptoms worsenCall physician for heavy vaginal bleedingCall for severe abdominal painCall for fever > 100.5 FCall for any problems. drink more fluids including gatorade, take milk of magnesia twice /day until yo u have bowel movements, benefiber daily [facility]06-19-2022 Evaluation + Plan note Diagnostic Tests Pending * Urine Culture 04/02/22 [facility]06-19-2022 Hospital Discharge instructions Patient Education 04/02/2022 10:22:48 Second Trimester of , Rkmc-zk-Ifac Second Trimester of The second trimester is [...] Follow these instructions at home: Medicines Take isgj-pgk-xqwolln and prescription medicines only as told by [...] 12/26/2010 Document Revised: 01/23/2020 Document Reviewed: 11/06/2017 [employer] Patient Education 2020 [employer]. 04/02/2022 10:22:48 Vaginal Bleeding During , Second [...] says that this is safe. Medicines Take tofd-hhg-epomhmt and prescription medicines only as told by [...] 07/11/2006 Document Revised: 01/20/2020 Document Reviewed: 01/03/2018 [employer] Patient Education 2019 [employer]. Follow Up Care 04/02/2022 06:00:26 With:Dr. Jung [phone] Address:Unknown When:2 to 3 days Comments:Call for any problems.Call physician if symptoms worsen [facility]06-09-2022 Hospital Discharge instructions Patient Education 03/23/2022 20:39:21 Second Trimester of , Wjmm-eh-Wzif Second Trimester of The second trimester is [...] Follow these instructions at home: Medicines Take phic-khi-uigibwb and prescription medicines only as told by [...] 12/26/2010 Document Revised: 01/23/2020 Document Reviewed: 11/06/2017 [employer] Patient Education 2020 [employer]. 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 Avoid heavy [...] grounds. You are around people who have Macanese measles, fifth disease, or chickenpox. You have [...] 03/19/2009 Document Revised: 01/22/2020 Document Reviewed: 10/09/2017 [employer] Patient Education 2020 [employer]. 03/23/2022 20:39:21 Abdominal Pain During , Fobl-wg-Ynte Abdominal Pain During Belly (abdominal) pain is [...] keep your pee (urine) pale yellow. Take ifru-smy-ofngmbh and prescription medicines only as told by [...] 09/19/2010 Document Revised: 01/19/2020 Document Reviewed: 01/03/2018 [employer] Patient Education 2020 [employer] Follow Up Care 03/23/2022 19:35:57 With:Luis Carlos Jung Address: [facility] [place] [id number] [facility] (1) When:03/27/2022 10:00:00 Comments:Call for any problems. Call [facility], ask to speak directly to Dr. Jung before heading to hospital unless an emergency. Call for severe abdominal pain or worsening pain.Return if vaginal bleedingor ruptured membranes.Wear belly band as much as possible, especially as your belly grows in . [facility]05-04-2022 Evaluation + Plan note Diagnostic Tests Pending * RPR with Conf Rfx 02/15/22 * HIV Screen 4th Generation wRfx 02/15/22 * Rubella Antibody IgG 02/15/22 * Hepatitis B Surface Antigen 02/15/22 * Urine Culture 02/15/22 [facility]06-18-2021 NoteHNO ID: [id number] Author: Bert Negrete, DO Service: ? 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 [facility]06-10-2021 NoteHNO ID: [id number] Author: RT Oliva(R) Service: Nuclear Medicine Author Type: Dough Machine Operator Type: Progress Notes Filed: 03/24/2021 9:39 [...] 0740 PATIENT DISCHARGED TO: Ambulatory patient, left [place] department area. A Diagnostic radioactive procedure has taken place, with no further precautions necessary other than routine body substance precautions. More information regarding radiation safety can be found using this link: [email or web address] SIGNATURE: RT Oliva(R) PATIENT NAME: Susan Bro DATE: March 24, 2021 TIME: 9:38 AM PAGER/CONTACT #:[facility]05-27-2021 NoteHNO ID: [id number] Author: Martha Webb MD Service: ? Author Type: Physician Type: Progress Notes Filed: 03/10/2021 12:03 PM Note Text: This note was created using Perillon Softwareriter. Subjective Susan Bro is a 25 year [...] data available for this section [facility] No data available for this section [facility] No data available for this section [facility] Summary Purpose Family History No [...] FoundDocuments on File Type Date Recorded Patient Architectural Manager Expl anation Advance Directives and Livin g Will 10/14/2020 10:22 AM Documents on File Type Date Recorded Patient Architectural Manager Expl anation ACP-Advance Directive ACP-Power of Safety Net Maker Discharge Instructions * Discharge Instr - Care Coordination* Andra Schmid RN - 10/14/2020 11:43 AM EST [facility] Trust the experts at [facility] to meet your healthcare needs. When you make an appointment with [facility], it's the start of a long-lasting partnership that's committed to your health. We provide the very best prevention, wellness and illness care, and give you access to the advanced medical services and expert treatment available at [facility]. Please note that the provider listed below is accepting patients in your area. [place]: [address] [place] [address] MD Debby Lala MD Christina Spring [facility] For the most up-to-date information on a care provider in your community, use the Find a Doctor tool on [employer] [facility] * Attachments The following attachments cannot be sent through Care Everywhere. * Vertigo (Taiwanese) * Arik Maneuver: Vertigo: Exercises (Taiwanese) documented in this encounter* Instructions* Bakari Valente [...] be sent through Care Everywhere. * Bruises (Taiwanese) * Contusion (Taiwanese) documented in this encounter Assessments Diagnosis Vertigo- Primary Dizziness and giddiness Diagnosis Contusion of right knee, initial encounter Contusion of multiple sites of right shoulder and upper arm, initial encounter Additional Source Comments INFORMATION SOURCE (unrecogn ized section and content) DATE CREATED AUTHOR 04/09/2018 [facility] DATE CREATED AUTHOR AUTHOR'S ORGANIZ ATION 08/10/2020 [facility] DATE CREATED AUTHOR AUTHOR'S ORGANIZ ATION 09/07/2020 [facility] DATE CREATED AUTHOR AUTHOR'S ORGANIZ ATION 10/20/2020 [facility] DATE CREATED AUTHOR AUTHOR'S ORGANIZ ATION 03/18/2021 [facility] DATE CREATED AUTHOR AUTHOR'S ORGANIZ ATION 11/15/2021 [facility] DATE CREATED AUTHOR AUTHOR'S ORGANIZ ATION 08/25/2023 [facility] DATE CREATED AUTHOR AUTHOR'S ORGANIZ ATION 11/07/2023 [facility] EPIC Reason for Visit (unrecogniz ed section and content) Reason Comments Dizziness Reason Comments Knee Pain right knee pain, 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 denies hitting head or any LOC Shoulder Pain rt shoulder, fell ov er dust guzman onto her right side. Susan Griffiths PA-C - 10/14/2020 10:44 AM Amena Cantrell RN - 10/14/2020 10:32 AM EST ED Notes (unrecognized secti on and content) [facility] ED Note: NAME: Susan Bro 24 y.o. CSN: [id number] PCP: Physician No History: Chief Complaint: Dizziness [...] file Gets together: Not on file Attends yarsanism service: Not on file Active member of [...] does have reproducible vertigo with position changes. Vvkhan-wv-hmkd maneuvers are intact without dysmetria. There is negative Romberg sign. There was no ataxia on ambulation. Psychiatric: Mood and Affect: Mood normal. Behavior: Behavior normal. Thought Content: Thought content normal. Laboratory & Radiological Imaging (if done): Labs Reviewed URINALYSIS - Abnormal; Notable for the following components: Result Value Clarity, Urine Cloudy (*) Specific [place] 1.028 (*) pH, Urine 8.0 (*) Protein, [...] at the following links: For Healthcare Providers: https://www.fda.gov/media/078610/download For Patients: https://www.fda.gov/media/480388/download HCG URINE, QUALITATIVE - Normal CBC AND DIFFERENTIAL Narrative: The following orders were created for panel order CBC w/ Diff. Procedure Abnormality Status --------- ------ CBC Auto Differential[[id number]] Abnormal Final result Please view results for these tests on the individual orders. HCG URINE, QUALITATIVE URINALYSIS CT Head Or Brain Without Contrast Final Result 1. No acute intracranial hemorrhage, focal edema or mass effect. Workstation ID: [id number] EKG: Normal sinus rhythm with sinus arrhythmia RATE: 74 AXIS: Normal axis INTERVALS: [place] interval of 178 ms, QRS duration of [...] Antivert. She is referred to follow-up with [facility] or [place] that she does not currently have a [...] needed for dizziness . Susan Griffiths Physicians Marking Room Supervisor [facility] Emergency Department Suasn Griffiths PA-C 10/14/20 1203 Special isolation precautions are in place with signage outside this patient's room. This home care aide performs hand hygiene and enters the patient [...] or prosecute any alcohol or drug abuse patient.[facility] Care Team (unrecognized sect ion and content) Personnel Name: THANG MILLAN CNP Address: [address] [place], [place] [id number] Personnel Name: THANG MILLAN CNP Address: [address] [place] [address] [place] Personnel Name: THANG MILLAN CNP Address: [address] [place] [address]- [place] Personnel Name: THANG MILLAN CNP Address: [address] [place] [address]- [place] Personnel Name: THANG MILLAN CNP Address: [address] [place] [address]- [place] Personnel Name: THANG MILLAN CNP Address: [address] [place] [address]- Personnel Name: THANG MILLAN CNP Address: [address] [place] [address]- [place] Personnel Name: THANG MILLAN CNP Address: [address] [place] [address]- [place] Personnel Name: THANG MILLAN CNP Address: Address: [address] [place] [address]- [place] Personnel Name: THANG MILLAN CNP Address: Address: [address] [place] [address]- [place] Personnel Name: THANG MILLAN CNP Address: Address: [address] [place] [address]- [place] Personnel Name: THANG MILLAN CNP Address: Address: [address] [place] [address]- [place] Personnel Name: THANG MILLAN CNP Address: Address: [address] [place] [address]- [place] Personnel Name: THANG MILLAN CNP Address: Address: [address] [place] [address]- [place] Personnel Name: THANG MILLAN CNP Address: Address: [address] [place] [address]- [place] Personnel Name: THANG MILLAN CNP Address: Address: [address] [place] [address]- [place] Personnel Name: THANG MILLAN CNP Address: Address: [address] [place] [address]- [place] Personnel Name: THANG MILLAN CNP Address: Address: [address] [place] [address] Personnel Name: THANG MILLAN CNP Address: Address: [address] [place] [address] Personnel Name: THANG MILLAN CNP Address: Address: [address] [place] [address]- Personnel Name: THANG MILLAN CNP Address: Address: [address] [place] [address] Personnel Name: THANG MILLAN CNP Address: Address: [address] [place] [address] Personnel Name: THANG MILLAN CNP Address: Address: [address] [place] [address]- Personnel Name: THANG MILLAN CNP Address: Address: [address] [place] [address]- Personnel Name: THANG MILLAN CNP Address: Address: [address] [place] [address] Personnel Name: THANG MILLAN CNP Address: Address: [address] [place] [address] Personnel Name: Luis Carlos Jung MD Address: Address: [facility] [address] Personnel Name: Luis Carlos Jung MD Address: Address: [facility] [address] Personnel Name: Luis Carlos Jung MD Address: Address: [facility] [address] Personnel Name: Luis Carlos Jung MD Address: Address: [facility] [address] Personnel Name: Luis Carlos Jung MD Address: Address: [facility] [address] Personnel Name: Rashaun PURVIS DO Address: Address: [address] , [facility] [address]inia Lopez[address] Personnel Name: NONE, XXXX Address: Address: [facility] Personnel Name: LLC, GENERIC Personnel Name: [...] BE BASED ON THE PRIMARY CLINICAL RECORDS. [facility]. provides no warranty or guarantee of the accuracy or completeness of information in this document.
[2023-11-13 09:26] VITALS: BP 112/68; PULSE 78; RESP 16
[2023-11-13 10:46] LABS: Bilirubin Urine NEGATIVE (NEGATIVE); Blood Urine NEGATIVE (NEGATIVE); Clarity Urine CLEAR (CLEAR); Color Urine LT. YELLOW (YELLOW); Glucose Urine UA NEGATIVE (NEGATIVE); Ketones Urine NEGATIVE (NEGATIVE); Leukocyte Esterase Urine MODERATE (NEGATIVE); Nitrite Urine NEGATIVE (NEGATIVE); Protein Urine NEGATIVE (NEG/TRACE); Specific Gravity Urine >=1.030 (1.005-1.025); Urobilinogen Urine 0.2 EU/dL (0.2-1.0)
[2023-11-13 10:51] LABS: Urine Microscopic Indicated YES
[2023-11-13 10:57] LABS: Bacteria Urine MODERATE #/HPF (NONE SEEN); Cast Seen? NONE SEEN #/LPF (NONE SEEN); Crystals Seen? None Seen #/HPF (None Seen); Mucus Urine NONE SEEN (NONE SEEN); RBC Urine 0-2 #/HPF (0-2); Squamous Epithelial Cell Urine MODERATE #/LPF (NONE/RARE); Urine Culture Indicated YES
== END 2023-11-13 10:25 | disposition home or self-care (01) ==
LOC: US 08:50 → FBC 08:50
PROVIDERS: Visit Provider Obstetrics & Gynecology
DX: O36.63X1 Maternal care for excessive fetal growth, third trimester, fetus 1 (principal); O26.843 Uterine size-date discrepancy, third trimester; Z3A.34 34 weeks gestation of pregnancy
CPT/HCPCS: 76818; 81001; 87086

== ENCOUNTER 2023-11-16 07:35 | Outpatient (OUT) | payer OTHER, SELFPAY ==
--- OUTSIDE RECORDS SUMMARY | 2023-11-16 07:43 | XMS_ITS | CCD ---
Author Name Unknown Address [address] [place] [address] Organization [facility] Care Team Providers Care Machine Spreader Name Role Phone MELISSANKECHI Unavailable Unavaila BAKARI Liriano Attending Unavailable THANG MILLAN Primary Care Unavailable No, Physician Primary Care Provider Unavailerum e NO, PHYSICIAN Primary Care Unavailable REGINE CHOW Admitting Unavailable REGINE CHOW Attending Unavailable Thang Millan Primary Care Provider Unavailable Primary Care Provider UnavailTHANG Mauro Primary Care Physician Luis Carlos Jung Primary Care Physician [phone] Rashaun PURVIS Primary Care Physician NONE, XXXX [...] sources) amoxicillin; Translations: [AMOXICILLIN] Drug Allergy 7 [facility] Repository (20 sources) penicillin; Translations: [PENICILLIN] Drug Allergy 7 [facility] Repository (3 sources) Penicillins; Translations: [PENICILLINS] Propensity to adverse reactions to drug 0 [place], [place] Medications Current Medications Medication Drug Class(es) [...] day(s), # 15 cap(s), Refills(s) 0, Pharmacy: [facility] 1986, 162.6, cm, 05/21/23 20:50:00 EDT, Height/Length Dosing, 75.3, kg, 05/21/23 20:50:00 EDT, Weight Dosing Start Date: 05/21/23 Stop Date: 05/26/23 Status: Ordered Start: 08-18-2022 End: 08-25-2022 take 1 capsule by mouth four times daily Keflex 500 mg Cap 500 mg = 1 cap(s), Oral, QID, X 7 day(s), # 28 cap(s), Refills(s) 0, Pharmacy: [facility] 1985, 162.5, cm, 08/18/22 4:15:00 EDT, Height/Length Dosing, 80, kg, 08/18/22 4:15:00 EDT, Weight Dosing Start Date: 08/18/22 Stop Date: 08/25/22 Status: Ordered Start: 07-17-2022 End: 07-22-2022 take 1 capsule by mouth every twelve hours Keflex 500 mg Cap 500 mg = 1 cap(s), Oral, q12hr, X 5 day(s), # 10 cap(s), Refills(s) 0, Pharmacy: [facility] 1986, 162.5, cm, 07/17/22 9:09:00 EDT, Height/Length Dosing, 80, kg, 07/17/22 9:09:00 EDT, Weight Dosing Start Date: 07/17/22 Stop Date: 07/22/22 Status: Ordered Start: 04-02-2022 End: 04-09-2022 take 1 capsule by mouth four times daily Keflex 500 mg Cap 500 mg = 1 cap(s), Oral, QID, X 7 day(s), # 28 cap(s), Refills(s) 0, Pharmacy: [facility] 1986, 160, cm, 04/02/22 6:28:00 EDT, [...] Daily, # 14 tab(s), Refills(s) 0, Pharmacy: [facility] 1986, 162.6, cm, 05/21/23 20:50:00 EDT, Height/Length Dosing, 75.3, kg, 05/21/23 20:50:00 EDT, Weight Dosing Start Date: 05/21/23 Status: Ordered ibuprofen 600 mg oral tablet (11 sources) Nonsteroidal Anti-inflammatory Drug Start: 09-27-2022 take 1 tablet by mouth every six hours ibuprofen 600 mg Tab 600 mg = 1 tab(s), Oral, q6hr, # 15 tab(s), Refills(s) 0, Pharmacy: [facility] 1986, 162.5, cm, 09/24/22 21:51:00 EST, [...] dizziness, # 15 tab(s), Refills(s) 0, Pharmacy: [facility], 163, cm, 11/30/21 7:18:00 EST, Height/Length [...] Nausea/Vomiting, # 12 tab(s), Refills(s) 0, Pharmacy: [facility] 1986, 163, cm, 09/05/22 20:14:00 [...] day(s), # 6 tab(s), Refills(s) 0, Pharmacy: [facility] 1986, 163, cm, 06/28/23 10:39:00 [...] q8hr, # 12 tab(s), Refills(s) 0, Pharmacy: [facility] 1986, 162.6, cm, 05/21/23 20:50:00 [...] AM) Normal Negative [facility] UA Auto SS Ramsay.plasma/Ramsay .RBC (Bld) [Mass ratio] 0-3 /HPF Normal [...] FT UA Auto SS Urobilinogen Qn (U) 0.8044705 {Rola'U}/dL Normal 0.0 - 1.0 EU/dL FT UA Auto SS WBC Auto Ql (U) 1+ *ABN* (11/04/23 8:05 AM) Invalid Interpretation Code Negative FT UA Auto SS WBC LM.HPF (Urine sed) [#/Area] 6-15 /HPF Invalid Interpretation Code 0-5/HPF FT UA Auto SS T3 Totalon 08-24-2023 T3 [Mass/Vol] 146 ng/dL Invalid Interpretation Code 71-180 [facility] Comment on above: Result Comment: Perf ormed at: [facility] [address] [place], [place] [id number] PhD Caroline [place] Performed By: #### 2 694747, 85132150, 2397643, 18524824, 3910594, 6905833, 18443602 ####[facility] [address] [place] [address] Auto Diffon 08-23-2023 Basophils/100 WBC (Bld) 0.9 % Normal 0.0-2.0 [facility] Comment on above: Order Comment: Order Added by Discern Expert. Performed By: #### 2 265101, 99454393, 2383071, 24759197, 9030199, 5072588, 44108225 ####[facility] [address] [place] [address] Basophils/Leukocytes Auto (Bld) [Pure # fraction] 0.1 E9/L Normal 0.0-0.2 [facility] Comment on above: Order Comment: Order Added by Discern Expert. Performed By: #### 2 553323, 99137876, 5385456, 50003625, 5110226, 0891383, 00758952 ####[facility] [address] [place] [address] Eosinophils/100 WBC (Bld) 1.3 % Normal 0.0-8.0 [facility] Comment on above: Order Comment: Order Added by Discern Expert. Performed By: #### 2 648533, 16629702, 8053710, 86540019, 1845010, 8793924, 77263941 ####[address] [address] Eosinophils/Leukocytes Auto (Bld) [Pure # fraction] 0.1 E9/L Normal 0.0-0.5 [facility] Comment on above: Order Comment: Order Added by Discern Expert. Performed By: #### 2 562026, 39576701, 8180412, 50611780, 1562563, 7232669, 02319843 ####[address] [address] Lymphocytes/100 WBC (Bld) 17.7 % Normal 14.0-50.0 [facility] Comment on above: Order Comment: Order Added by Discern Expert. Performed By: #### 2 349826, 39753988, 8733046, 82622121, 8041272, 8271756, 87724121 ####[address] [place] [address] Lymphocytes/Leukocytes Auto (Bld) [Pure # fraction] 1.4 E9/L Normal 1.0-4.0 [facility] Comment on above: Order Comment: Order Added by Discern Expert. Performed By: #### 2 628228, 48491803, 1777990, 46253337, 9421059, 2231538, 20590228 ####[address] [place] [address] Monocytes/100 WBC (Bld) 5.1 % Normal 4.0-14.0 [facility] Comment on above: Order Comment: Order Added by Discern Expert. Performed By: #### 2 816960, 70118308, 7113197, 57950404, 2504123, 1078449, 77207807 ####[address] [address] Monocytes/Leukocytes Auto (Bld) [Pure # fraction] 0.4 E9/L Normal 0.2-1.0 [facility] Comment on above: Order Comment: Order Added by Discern Expert. Performed By: #### 2 642508, 34772432, 8499339, 80607262, 7632554, 1772455, 17337815 ####[address] [address] Neutrophils/100 WBC (Bld) 75.0 % Normal 36.0-75.0 [facility] Comment on above: Order Comment: Order Added by Discern Expert. Performed By: #### 2 023585, 25865808, 5069896, 26009415, 3547526, 0665338, 54975357 ####[address] [address] Neutrophils/Leukocytes Auto (Bld) [Pure # fraction] 5.8 E9/L Normal 2.0-7.5 [facility] Comment on above: Order Comment: Order Added by Discern Expert. Performed By: #### 2 770239, 05209132, 8331849, 36003546, 1415219, 2493626, 78528907 ####[address] [place] [address] CBC w/ Auto Diffon 3 Erythrocyte distribution width (RBC) [Ratio] 14.5 % High 10.9-14.2 [facility] Comment on above: Performed By: #### 2 190606, 62462944, 4324286, 54248478, 2988459, 8412664, 33970127 ####[facility] [address] [place] [address] Hematocrit (Bld) [Volume fraction] 36.4 % Normal 34.0-46.0 [facility] Comment on above: Performed By: #### 2 095388, 11144584, 6419275, 78099842, 2574060, 3667900, 81600268 ####[facility] [address] [place] [address] Hemoglobin (Bld) [Mass/Vol] 12.1 g/dL Normal 12.0-16.0 [facility] Comment on above: Performed By: #### 2 654620, 35893273, 4423597, 79596521, 1395411, 2054406, 43813780 ####[address] [place] [address] MCH (RBC) [Entitic mass] 30.2 pg Normal 27.0-34.0 [facility] Comment on above: Performed By: #### 2 863829, 68091413, 9907013, 63469021, 0766662, 2529193, 88578499 ####[facility] [address] [place], [place] [address] MCHC (RBC) [Mass/Vol] 33.3 g/dL Normal 31.4-36.0 [facility] Comment on above: Performed By: #### 2 802356, 17144169, 4671603, 38928405, 4218897, 1849221, 38814784 ####[facility] [address] [place] [address] MCV (RBC) [Entitic vol] 90.8 fL Normal 80.0-100.0 [facility] Comment on above: Performed By: #### 2 397397, 72534599, 5676494, 94491152, 2205435, 5361024, 78138513 ####[facility] [address] [place] [address] Platelet mean volume (Bld) [Entitic vol] 9.7 fL Normal 6.4-10.8 [facility] Comment on above: Performed By: #### 2 079264, 67514334, 0798479, 26002610, 2949916, 8597204, 65337587 ####[facility] [address] [place] [address] Platelets (Bld) [#/Vol] 270.0 E9/L Normal 150.0-500.0 [facility] Comment on above: Performed By: #### 2 859135, 60823524, 7605345, 78684092, 0883263, 5733186, 22426565 ####[facility] [address] [place] [address] RBC (Bld) [#/Vol] 4.0 E12/L Low 4.3-5.9 [facility] Comment on above: Performed By: #### 2 357970, 82159762, 0231180, 89471781, 5565563, 2530283, 19683649 ####[facility] [address] [place] [address] WBC corrected for nucl RBC Auto (Bld) [#/Vol] 7.7 E9/L Normal 4.0-11.0 [facility] Comment on above: Performed By: #### 2 005358, 71321955, 5602707, 03622030, 7979511, 6149696, 53998271 ####[facility] [address] [place] [address] CHEMISTRYOrdered By: SYSTEM SYSTEM on 08-23-2023 Albumin [...] 125 mL/min/1.73 m2 Normal >=59mL/min/ 1.73 m2 [facility] Chem S Comment on above: Interpretive Data: [...] 08-23-2023 Albumin [Mass/Vol] 2.8 g/dL Low 3.3-5.0 [facility] Comment on above: Performed By: #### 2 971352, 75478691, 7637037, 83661083, 8231600, 5296528, 25177799 ####[facility] [address] [place] [address] Albumin/Globulin (S) [Mass conc ratio] 0.7 Low 1.1-2.2 [facility] Comment on above: Performed By: #### 2 336338, 38972584, 4006023, 80070654, 4266814, 2308386, 05111694 ####[facility] [address] [place] [address] ALP [Catalytic activity/Vol] 49 Int._Unit/L Normal 21-98 [facility] Comment on above: Performed By: #### 2 108801, 80387994, 7726917, 64962858, 5334675, 5430557, 25880929 ####[facility] [address] [place] [address] ALT No additional P-5'-P [Catalytic activity/Vol] 15 Int._Unit/L Normal 6-46 [facility] Comment on above: Performed By: #### 2 517111, 21564100, 6011104, 31529214, 1545387, 4966500, 13280014 ####[facility] [address] [place] [address] Anion gap [Moles/Vol] 12 mmol/L Normal 6-16 [facility] Comment on above: Performed By: #### 2 401115, 24956990, 4381237, 86637752, 2581777, 1693819, 08972717 ####[facility] [address] [place] [address] AST [Catalytic activity/Vol] 17 Int._Unit/L Normal 5-43 [facility] Comment on above: Performed By: #### 2 080163, 06325857, 3240353, 01786150, 7290332, 0707739, 47642534 ####[address] [place] [address] Bilirubin [Mass/Vol] 0.5 mg/dL Normal 0.0-1.1 [facility] Comment on above: Performed By: #### 2 563572, 99896998, 0544843, 01565833, 2359150, 5151114, 93484740 ####[address] [place] [address] Calcium [Mass/Vol] 8.8 mg/dL Low 8.9-11.1 [facility] Comment on above: Performed By: #### 2 362908, 81440887, 8933870, 93007324, 0799638, 0522601, 70436244 ####[facility] [address] [place] [address] Chloride [Moles/Vol] 108 mmol/L Normal 101-111 [facility] Comment on above: Performed By: #### 2 376057, 28935214, 7792702, 33074923, 5603882, 4819095, 52595792 ####[facility] [address] [place] [address] CO2 [Moles/Vol] 22 mmol/L Normal 21-31 [facility] Comment on above: Performed By: #### 2 773870, 43498033, 9235440, 87715796, 0681082, 0412860, 75735200 ####[facility] [address] [place] [address] Creatinine [Mass/Vol] 0.6 mg/dL Normal 0.5-1.3 [facility] Comment on above: Performed By: #### 2 314204, 67256421, 7776045, 84056661, 5896451, 4189845, 95868115 ####[facility] [address] [place] [address] Globulin (S) [Mass/Vol] 3.8 g/dL Normal 1.4-4.0 [facility] Comment on above: Performed By: #### 2 183491, 23249285, 7510346, 94481793, 0878907, 9548372, 07409542 ####[facility] [address] [place] [address] Glucose [Mass/Vol] 88 mg/dL Normal 55-199 [facility] Comment on above: Result Comment: If t his glucose result represents a fasting glucose, interpretation should refer to the following reference range: 55-99 mg/dL Performed By: #### 2 380496, 86392116, 4298640, 24107122, 2300517, 2705318, 34276758 ####[facility] [address] [place] [address] Potassium [Moles/Vol] 3.5 mmol/L Normal 3.5-5.3 [facility] Comment on above: Performed By: #### 2 702110, 67964822, 6073023, 91632690, 6738320, 7210808, 12158108 ####[facility] [address] [place] [address] Protein [Mass/Vol] 6.6 g/dL Normal 6.0-7.8 [facility] Comment on above: Performed By: #### 2 289687, 95249269, 6118521, 61902536, 7441893, 9641490, 57616004 ####[facility] [address] [place] [address] Sodium [Moles/Vol] 138 mmol/L Normal 135-145 [facility] Comment on above: Performed By: #### 2 851835, 30494275, 2650834, 32480212, 5862394, 4008957, 87853491 ####[facility] [address] [place] [address] Urea nitrogen [Mass/Vol] 7 mg/dL Normal 5-21 [facility] Comment on above: Performed By: #### 2 259137, 97327498, 0880525, 20757643, 6935625, 9772461, 12892640 ####[facility] [address] [place] [address] Urea nitrogen/Creatinine [Mass ratio] 12 No Units Normal 10-20 [facility] Comment on above: Performed By: #### 2 276957, 06832029, 6591727, 60654858, 9522180, 4465980, 16767706 ####[facility] [address] [place] [address] HEMATOLOGYOrdered By: SYSTEM SYSTEM on 08-23-2023 Basophils/100 [...] 08-23-2023 Cholesterol [Mass/Vol] 238 mg/dL High 120-200 [facility] Comment on above: Performed By: #### 2 341187, 49927331, 1478740, 66330581, 9138756, 8199464, 18163026 ####[facility] [address] [place] [address] Cholesterol in HDL [Mass/Vol] 64 mg/dL Invalid Interpretation Code [facility] Comment on above: Result Comment: HDL > or equal to 60 mg/dL: Low cardiovascular riskHDL < 40 mg/dL : High cardiovascular risk Performed By: #### 2 655323, 09507647, 7878701, 18989387, 6111251, 1466519, 90122346 ####[facility] [address] [place] [address] Cholesterol in LDL [Mass/Vol] 146 mg/dL High <=129 [facility] Comment on above: Performed By: #### 2 470066, 87521177, 7352645, 63771326, 2024951, 1401956, 69541967 ####[facility] [address] [place] [address] Cholesterol in VLDL [Mass/Vol] 33 mg/dL Normal 7-40 [facility] Comment on above: Performed By: #### 2 246054, 68654292, 9070167, 95759214, 2811532, 6058056, 14460215 ####[facility] [address] [place] [address] Triglyceride [Mass/Vol] 164 mg/dL High <=149 [facility] Comment on above: Performed By: #### 2 982397, 85502133, 5530289, 03468663, 6905743, 9237879, 39748261 ####[facility] [address] [place] [address] Physician Orderon 08-23-2023 Physician Order [id number]#1.00TIFF Normal [facility] T4 & TSHon 08-23-2023 T4 [Mass/Vol] 11.8 microgram/dL High 4.6-9.1 [facility] Comment on above: Performed By: #### 2 789744, 13261657, 1691042, 02353862, 4932128, 9436665, 65961445 ####[facility] [address] [place] [address] TSH Qn 3.61 m[IU]/L Normal 0.34-5.60 [facility] Comment on above: Performed By: #### 2 697886, 20604444, 6179508, 95225125, 7445941, 6791676, 99277321 ####[facility] [address] [place] [address] eGFRon 08-23-2023 GFR/1.73 sq M.predicted among non-blacks MDRD (S/P/Bld) [Vol rate/Area] 125 mL/min/1.73 m2 Normal >=59 [facility] Comment on above: Order Comment: Order added by Discern Expert. Result Comment: [employer] lu[employer] kidney disease could be indicated at eGFR's of less than 60 mL/min/1.73m2. Kidney failure is indicated at less than 15 mL/min/1.73m2. Performed By: #### 2 045834, 92283865, 1941506, 31288479, 0591811, 8126559, 03913299 ####[facility] [address] [place] [address] Nursing Assessmenton 023 Nursing Assessment [id number]#1.00TIFF Normal [facility] Consent for Treatmenton Consent for Treatment [id number]#1.00TIFF Normal [facility] Discharge Instructionson Discharge Instructions [id number]#1.00TIFF Normal [facility] Inpatient Clinical Summaryon 08-18-2023 Inpatient Clinical Summary Normal [facility] Inpatient Patient Summaryon 08-18-2023 Inpatient Patient Summary Normal [facility] Insurance Correspondenceon 1 10-18-2022 Insurance Correspondence [id number]#1.00TIFF Normal [facility] Vaccinationson 08-18-2023 Vaccinations [id number]#1.00TIFF Normal [facility] C Urineon 07-27-2023 Bacteria identified Cx Nom (U) Normal [facility] Comment on above: Performed By: #### 2 882597, 36368644 ####[facility] [address] [place] [address] ABO/Rhon 07-25-2023 ABO/Rh Positive Invalid Interpretation Code [facility] Comment on above: Performed By: #### 2 064176 ####[facility] [address] [place] [address] Auto Diffon 07-25-2023 Basophils/100 WBC (Bld) 1.1 % Normal 0.0-2.0 [facility] Comment on above: Order Comment: Order Added by Discern Expert. Performed By: #### 1 3555239, 9041994, 3044333, 4724869, 9768446, 6388791 ####[facility] [address] [place] [address] Basophils/Leukocytes Auto (Bld) [Pure # fraction] 0.1 E9/L Normal 0.0-0.2 [facility] Comment on above: Order Comment: Order Added by Discern Expert. Performed By: #### 1 1790894, 9670506, 4266355, 1848762, 2310884, 0880072 ####[facility] [address] [place] [address] Eosinophils/100 WBC (Bld) 1.2 % Normal 0.0-8.0 [facility] Comment on above: Order Comment: Order Added by Discern Expert. Performed By: #### 1 2185436, 5525811, 6619275, 3759348, 5145023, 4426785 ####[facility] [address] [place] [address] Eosinophils/Leukocytes Auto (Bld) [Pure # fraction] 0.1 E9/L Normal 0.0-0.5 [facility] Comment on above: Order Comment: Order Added by Gisselle Expert. Performed By: #### 1 4824129, 7278091, 3638390, 7274654, 4074992, 4912089 ####[facility] [address] [place] [address] Lymphocytes/100 WBC (Bld) 23.7 % Normal 14.0-50.0 [facility] Comment on above: Order Comment: Order Added by Discern Expert. Performed By: #### 1 6738224, 0059959, 8731462, 1051642, 5790957, 2410384 ####[address] [place] [address] Lymphocytes/Leukocytes Auto (Bld) [Pure # fraction] 1.4 E9/L Normal 1.0-4.0 [facility] Comment on above: Order Comment: Order Added by Gisselle Expert. Performed By: #### 1 1786184, 4104288, 3604023, 1508016, 7562333, 2939347 ####[address] [place] [address] Monocytes/100 WBC (Bld) 6.7 % Normal 4.0-14.0 [facility] Comment on above: Order Comment: Order Added by Gisselle Expert. Performed By: #### 1 8038897, 5343026, 5818801, 3655952, 8300901, 8397325 ####[address] [address] Monocytes/Leukocytes Auto (Bld) [Pure # fraction] 0.4 E9/L Normal 0.2-1.0 [facility] Comment on above: Order Comment: Order Added by Gisselle Expert. Performed By: #### 1 1050860, 8529471, 0958334, 0515172, 8702616, 7440973 ####[address] [place] [address] Neutrophils/100 WBC (Bld) 67.3 % Normal 36.0-75.0 [facility] Comment on above: Order Comment: Order Added by Discern Expert. Performed By: #### 1 5353200, 7971320, 4745547, 1635490, 1916019, 1507915 ####[facility] [address] [place] [address] Neutrophils/Leukocytes Auto (Bld) [Pure # fraction] 4.0 E9/L Normal 2.0-7.5 [facility] Comment on above: Order Comment: Order Added by Discern Expert. Performed By: #### 1 1889217, 1353879, 9266882, 7300500, 8891507, 1858515 ####[facility] [address] [place] [address] BLOOD BANKOrdered By: An Lassiter on 07-25-2023 ABO/Rh Interp Positive Invalid Interpretation Code [facility] BB Subsection BMPon 07-25-2023 Creatinine [Mass/Vol] 0.6 mg/dL Normal 0.5-1.3 [facility] Comment on above: Performed By: #### 1 4278852, 6576054, 4158033, 8674399, 3407653, 4473797 ####[facility] [address] [place] [address] Urea nitrogen [Mass/Vol] 6 mg/dL Normal 5-21 [facility] Comment on above: Performed By: #### 1 8374493, 7875918, 3061428, 2146950, 3414700, 2219742 ####[facility] [address] [place] [address] Urea nitrogen/Creatinine [Mass ratio] 10 No Units Normal 10-20 [facility] Comment on above: Performed By: #### 1 3689037, 9431254, 9756105, 7405245, 5288367, 6284364 ####[facility] [address] [place] [address] Anion gap [Moles/Vol] 2 mmol/L Low 6-16 [facility] Comment on above: Performed By: #### 1 2455174, 0771862, 7575195, 0453162, 5952734, 9492598 ####[facility] [address] [place] [address] Calcium [Mass/Vol] 8.6 mg/dL Low 8.9-11.1 [facility] Comment on above: Performed By: #### 1 6364920, 1758372, 8595794, 0929339, 8441534, 7271405 ####[facility] [address] [place] [address] Chloride [Moles/Vol] 107 mmol/L Normal 101-111 [facility] Comment on above: Performed By: #### 1 4892405, 1234983, 9462858, 2817732, 7582661, 0232895 ####[facility] [address] [place] [address] CO2 [Moles/Vol] 27 mmol/L Normal 21-31 [facility] Comment on above: Performed By: #### 1 3541727, 3877256, 4331833, 1064171, 8016932, 5273787 ####[facility] [address] [place] [address] Glucose [Mass/Vol] 73 mg/dL Normal 55-199 [facility] Comment on above: Result Comment: If t his glucose result represents a fasting glucose, interpretation should refer to the following reference range: 55-99 mg/dL Performed By: #### 1 1846573, 6362486, 0194358, 2348553, 8789369, 6900624 ####[facility] [address] [place] [address] Potassium [Moles/Vol] 3.9 mmol/L Normal 3.5-5.3 [facility] Comment on above: Performed By: #### 1 6570315, 8370863, 1481269, 5330533, 3046295, 3056492 ####[facility] [address] [place] [address] Sodium [Moles/Vol] 132 mmol/L Low 135-145 [facility] Comment on above: Performed By: #### 1 7262000, 8783201, 9517507, 1795131, 2883349, 5713039 ####[facility] [address] [place] [address] BhCG Quanton 07-25-2023 [place] [address] m[IU]/mL High 1-3 [facility] Comment on above: Result Comment: GEST ATIONAL AGE HCG RANGE (mIU/mL) NON- <1-3 0.2-1 WEEKS 5-50 1-2 WEEKS 50-500 2-3 WEEKS 100-5,000 3-4 WEEKS 500-10,000 4-5 WEEKS 1,000-50,000 5-6 WEEKS 10,000-100,000 6-8 WEEKS 15,000-200,000 8-12 WEEKS 10,000-100,000 Performed By: #### 2 [id number] ####[address] [address] CBC w/ Auto Diffon Erythrocyte distribution width (RBC) [Ratio] 14.0 % Normal 10.9-14.2 [facility] Comment on above: Performed By: #### 1 [id number], [id number], [id number], [id number], [id number] ####[id number] [place] [address] Hematocrit (Bld) [Volume fraction] 37.1 % Normal 34.0-46.0 [facility] Comment on above: Performed By: #### 1 2648860, 4160950, 1569496, 3956951, 3334476, 4694006 ####[address] [place] [address] Hemoglobin (Bld) [Mass/Vol] 12.5 g/dL Normal 12.0-16.0 [facility] Comment on above: Performed By: #### 1 5547004, 2404380, 2849652, 4535574, 6053562, 9964418 ####[facility] [address] [place] [address] MCH (RBC) [Entitic mass] 29.9 pg Normal 27.0-34.0 [facility] Comment on above: Performed By: #### 1 2356909, 5427152, 7921280, 8883989, 6136859, 9117685 ####[address] [place] [address] MCHC (RBC) [Mass/Vol] 33.8 g/dL Normal 31.4-36.0 [facility] Comment on above: Performed By: #### 1 7704209, 5403727, 1334071, 4663897, 3435892, 8315627 ####[address] [address] MCV (RBC) [Entitic vol] 88.4 fL Normal 80.0-100.0 [facility] Comment on above: Performed By: #### 1 4580756, 2767410, 6949264, 8788954, 8504479, 9882599 ####[address] [address] Platelet mean volume (Bld) [Entitic vol] 7.9 fL Normal 6.4-10.8 [facility] Comment on above: Performed By: #### 1 3051599, 2055880, 1148336, 5203195, 8087387, 7841805 ####[address] [address] Platelets (Bld) [#/Vol] 261.0 E9/L Normal 150.0-500.0 [facility] Comment on above: Performed By: #### 1 8514011, 0492954, 8020296, 8732156, 0088401, 0177227 ####[address] [address] RBC (Bld) [#/Vol] 4.2 E12/L Low 4.3-5.9 [facility] Comment on above: Performed By: #### 1 3561472, 9877723, 3065544, 3307916, 9244252, 5253897 ####[address] [address] WBC corrected for nucl RBC Auto (Bld) [#/Vol] 5.9 E9/L Normal 4.0-11.0 [facility] Comment on above: Performed By: #### 1 4236945, 6123193, 5219148, 4244027, 9425132, 9492212 ####[facility] [address] [place] [address] CHEMISTRYOrdered By: SYSTEM SYSTEM on 07-25-2023 Albumin [...] 125 mL/min/1.73 m2 Normal >=59mL/min/ 1.73 m2 [facility] Chem S Comment on above: Interpretive Data: [...] reference range: 55-99 mg/[place] [address] m[IU]/mL High 1 - 3 mIU/mL FT [...] 132 mmol/L Low 135 - 145 mmol/L [facility] Remisol Urea nitrogen [Mass/Vol] 6 mg/dL Normal 5 - 21 mg/dL [facility] Remisol Urea nitrogen/Creatinine [Mass ratio] 10 mg/mg Normal 10 - 20 FT Remisol Consent for Treatmenton 07-15 Consent for Treatment [id number] [facility] Discharge Instructionson Discharge Instructions [id number] Normal [facility] ED Clinical Summaryon 2022 ED Clinical Summary Normal Vika onofre [facility] ED Note-Physicianon 07-25-20 ED Note-Physician Normal [facility] Comment on above: Result Comment: Elec tronically Signed By: Jorge Velarde PA-C\.br\Date and Time Signed: 07/25/23 10:02 EDT\.br\Electronically Co-Signed By: Kristian Guillermo DO\.br\Date and Time Co-Signed: 07/25/23 20:25 EDT ED Patient Education Noteon 07-25-2023 ED Patient Education Note Normal [facility] ED Patient Summaryon ED Patient Summary Normal [facility] HEMATOLOGYOrdered By: SYSTEM SYSTEM on 07-25-2023 [...] Bilirubin.indirect [Mass or moles/Vol] UTC Abnormal 0.1-0.9 [facility] Comment on above: Result Comment: Resu lt verified by Discern Rule. Performed result UTC (Unable to Calculate) was sent as an Alpha code due the inability to calculate a valid numeric value. Performed By: #### 1 3229488, 2199723, 8512639, 2054994, 3202509, 1396086 ####[facility] [address] [place] [address] Albumin [Mass/Vol] 3.1 g/dL Low 3.3-5.0 [facility] Comment on above: Performed By: #### 1 9112914, 5100697, 0375742, 8703146, 4009972, 8586926 ####[facility] [address] [place] [address] Albumin/Globulin (S) [Mass conc ratio] 0.9 Low 1.1-2.2 [facility] Comment on above: Performed By: #### 1 5350803, 8686939, 4517016, 3974288, 2759282, 9328547 ####[address] [place] [address] ALP [Catalytic activity/Vol] 35 Int._Unit/L Normal 21-98 [facility] Comment on above: Performed By: #### 1 9632026, 3275482, 1698307, 8564936, 8299744, 2138261 ####[address] [place] [address] ALT No additional P-5'-P [Catalytic activity/Vol] 10 Int._Unit/L Normal 6-46 [facility] Comment on above: Performed By: #### 1 6805776, 9255763, 0541002, 1175032, 8741692, 3835838 ####[address] [address] AST [Catalytic activity/Vol] 18 Int._Unit/L Normal 5-43 [facility] Comment on above: Performed By: #### 1 1130980, 6981966, 3037577, 7401990, 7023504, 7635958 ####[address] [place] [address] Bilirubin [Mass/Vol] 0.4 mg/dL Normal 0.0-1.1 [facility] Comment on above: Performed By: #### 1 3470699, 1382102, 3098509, 1202327, 8912085, 1259548 ####[address] [place] [address] Globulin (S) [Mass/Vol] 3.6 g/dL Normal 1.4-4.0 [facility] Comment on above: Performed By: #### 1 2473518, 8415359, 3250720, 1140845, 1189638, 8792702 ####[facility] [address] [place] [address] Protein [Mass/Vol] 6.7 g/dL Normal 6.0-7.8 [facility] Comment on above: Performed By: #### 1 1808220, 7339850, 5615911, 6655039, 1724372, 6963507 ####[facility] [address] [place] [address] Bilirubin.direct [Mass/Vol] mg/dL Normal 0.1-0.4 [facility] Comment on above: Performed By: #### 1 7687029, 9521342, 8819313, 6884679, 4502576, 4850060 ####[facility] [address] [place] [address] Lipase Levelon 07-25-2023 Lipase [Catalytic activity/Vol] 28 U/L Normal 13-58 [facility] Comment on above: Performed By: #### 1 1038290, 9037654, 5173324, 2994072, 8664447, 1245691 ####[facility] [address] [place] [address] UA With Cult Reflexon 2022 Bacteria LM Ql (Urine sed) TRACE Normal Trace [facility] Comment on above: Performed By: #### 2 847388, 03073013 ####[facility] [address] [place] [address] Bilirubin Ql (U) Negative Normal Negative [facility] Comment on above: Performed By: #### 2 291898, 18243536 ####[facility] [address] [place] [address] Clarity (U) SL CLOUDY Abnormal Clear [facility] Comment on above: Performed By: #### 2 190725, 98481844 ####[facility] [address] [place] [address] Color (U) YELLOW Normal Yellow [facility] Comment on above: Performed By: #### 2 909688, 96291726 ####[facility] [address] [address] Epithelial cells.squamous LM.HPF (Urine sed) [#/Area] 0-2 Normal 0-2 [facility] Comment on above: Performed By: #### 2 391010, 64612095 ####[facility] [address] [place] [address] Glucose Test strip (U) [Mass/Vol] Negative Normal Negative [facility] Comment on above: Performed By: #### 2 462517, 26790307 ####[address] [address] Hemoglobin Ql (U) Negative Normal Negative [facility] Comment on above: Performed By: #### 2 943058, 44176533 ####[address] [address] Ketones (U) [Mass/Vol] Negative Normal Negative [facility] Comment on above: Performed By: #### 2 229134, 75539328 ####[address] [address] Ramsay.plasma/Ramsay .RBC (Bld) [Mass ratio] 0-3 Normal 0-3 [facility] Comment on above: Performed By: #### 2 087522, 90612895 ####[address] [address] Nitrite Ql (U) Negative Normal Negative [facility] Comment on above: Performed By: #### 2 111384, 92360987 ####[address] [address] pH (U) 7.5 [pH] Invalid Interpretation Code 5.0-9.0 [facility] Comment on above: Performed By: #### 2 767132, 34517955 ####[address] [place] [address] Protein (U) [Mass/Vol] Negative Normal Negative [facility] Comment on above: Performed By: #### 2 141284, 24738613 ####[facility] [address] [place] [address] Specific gravity (U) [Rel density] 1.010 Invalid Interpretation Code 1.005-1.030 [facility] Comment on above: Performed By: #### 2 692734, 85045664 ####[place] [address] Type of Urine collection method Clean Catch Normal [facility] Comment on above: Performed By: #### 2 362648, 71257630 ####[facility] [address] [place] [address] Urobilinogen Qn (U) 1.0 {Rola'U}/dL Normal 0.0-1.0 [facility] Comment on above: Performed By: #### 2 646746, 19878157 ####[place] [address] WBC Auto Ql (U) 2+ Abnormal Negative [facility] Comment on above: Performed By: #### 2 693296, 47842621 ####[facility] [address] [place] [address] WBC LM.HPF (Urine sed) [#/Area] 0-5 Normal 0-5 [facility] Comment on above: Performed By: #### 2 685464, 78177157 ####[place] [address] URINALYSISOrdered By: Emy Aiken on 07-25-2023 Bacteria [...] AM) Normal Negative [facility] UA Auto SS Ramsay.plasma/Ramsay .RBC (Bld) [Mass ratio] 0-3 /HPF Normal [...] [facility] UA Auto SS Urobilinogen Qn (U) 1.2011714 {Rola'U}/dL Normal 0.0 - 1.0 EU/dL [facility] UA Auto SS WBC Auto Ql (U) 2+ *ABN* (07/25/23 8:33 AM) Invalid Interpretation Code Negative [facility] UA Auto SS WBC LM.HPF (Urine sed) [#/Area] 0-5 /HPF Normal 0-5/HPF [facility] UA Auto SS US Limitedon 07-25 US Limited Normal Fish [facility] eGFRon 07-25-2023 GFR/1.73 sq M.predicted among non-blacks MDRD (S/P/Bld) [Vol rate/Area] 125 mL/min/1.73 m2 Normal >=59 [facility] Comment on above: Order Comment: Order added by Discern Expert. Result Comment: [employer] lucy kidney disease could be indicated at eGFR's of less than 60 mL/min/1.73m2. Kidney failure is indicated at less than 15 mL/min/1.73m2. Performed By: #### 1 0532363, 5155771, 0833132, 8430936, 7503120, 0083084 ####[facility] [address] [place] [address] C Urineon 06-30-2023 Bacteria identified Cx Nom (U) Normal [facility] Comment on above: Performed By: #### 2 399827 ####[facility] [address] [place] [address] Family Medicine Office/Clini c Noteon 06-28-2023 Family Medicine Office/Clinic Note Normal [facility] Comment on above: Result Comment: Elec tronically Signed By: Татьяна NICHOLS, Roverto Barron\.br\Date and Time Signed: 06/28/23 11:41 EDT Patient Educationon 06-28-20 Patient Education Normal [facility] ABO/Rhon 06-14-2023 ABO/Rh Positive Invalid Interpretation Code [facility] Comment on above: Performed By: #### 2 347398 ####[facility] [address] [place] [address] Auto Diffon 06-14-2023 Basophils/100 WBC (Bld) 0.8 % Normal 0.0-2.0 [facility] Comment on above: Order Comment: Order Added by Discern Expert. Performed By: #### 2 839202, 6397210, 1839040, 2374674, 4610808, 76412242 ####[facility] [address] [place] [address] Basophils/Leukocytes Auto (Bld) [Pure # fraction] 0.0 E9/L Normal 0.0-0.2 [facility] Comment on above: Order Comment: Order Added by Discern Expert. Performed By: #### 2 873449, 1488165, 9126416, 9851423, 6717351, 24332083 ####[facility] [address] [place] [address] Eosinophils/100 WBC (Bld) 1.9 % Normal 0.0-8.0 [facility] Comment on above: Order Comment: Order Added by Discern Expert. Performed By: #### 2 486464, 7243076, 4371566, 1140848, 2921489, 48663812 ####[facility] [address] [place] [address] Eosinophils/Leukocytes Auto (Bld) [Pure # fraction] 0.1 E9/L Normal 0.0-0.5 [facility] Comment on above: Order Comment: Order Added by Discern Expert. Performed By: #### 2 501630, 8196190, 0680714, 2052187, 3188786, 03265743 ####[address] [place] [address] Lymphocytes/100 WBC (Bld) 24.5 % Normal 14.0-50.0 [facility] Comment on above: Order Comment: Order Added by Discern Expert. Performed By: #### 2 063336, 2391359, 5149877, 1526956, 4771961, 57961435 ####[address] [address] Lymphocytes/Leukocytes Auto (Bld) [Pure # fraction] 1.3 E9/L Normal 1.0-4.0 [facility] Comment on above: Order Comment: Order Added by Discern Expert. Performed By: #### 2 396334, 1994278, 3297369, 6209918, 2983741, 34202214 ####[address] [place] [address] Monocytes/100 WBC (Bld) 7.8 % Normal 4.0-14.0 [facility] Comment on above: Order Comment: Order Added by Discern Expert. Performed By: #### 2 886889, 3179680, 9812345, 8701632, 5427777, 36791383 ####[address] [place] [address] Monocytes/Leukocytes Auto (Bld) [Pure # fraction] 0.4 E9/L Normal 0.2-1.0 [facility] Comment on above: Order Comment: Order Added by Discern Expert. Performed By: #### 2 177320, 6954073, 3618531, 5565862, 2758183, 19577900 ####[facility] [address] [place] [address] Neutrophils/100 WBC (Bld) 65.0 % Normal 36.0-75.0 [facility] Comment on above: Order Comment: Order Added by Discern Expert. Performed By: #### 2 336221, 1620662, 4231627, 1539313, 2725669, 04176999 ####[facility] [address] [place] [address] Neutrophils/Leukocytes Auto (Bld) [Pure # fraction] 3.5 E9/L Normal 2.0-7.5 [facility] Comment on above: Order Comment: Order Added by Discern Expert. Performed By: #### 2 556200, 8504969, 2163881, 3474974, 4825457, 44103614 ####[facility] [address] [place] [address] BLOOD BANKOrdered By: Keila Kumar on 06-14-2023 ABO/Rh Interp Positive Invalid Interpretation Code [facility] BB Subsection BMPon 06-14-2023 Creatinine [Mass/Vol] 0.5 mg/dL Normal 0.5-1.3 [facility] Comment on above: Performed By: #### 2 439909, 3122416, 9594017, 8624452, 9536051, 08764090 ####[facility] [address] [place] [address] Urea nitrogen [Mass/Vol] 6 mg/dL Normal 5-21 [facility] Comment on above: Performed By: #### 2 672420, 1751090, 5458036, 4757113, 3857615, 10026990 ####[facility] [address] [place] [address] Urea nitrogen/Creatinine [Mass ratio] 12 No Units Normal 10-20 [facility] Comment on above: Performed By: #### 2 745508, 5703561, 7813889, 1165896, 8403112, 44992325 ####[facility] [address] [place] [address] Anion gap [Moles/Vol] 10 mmol/L Normal 6-16 [facility] Comment on above: Performed By: #### 2 929647, 7057472, 5866557, 8443729, 3281975, 02263172 ####[facility] [address] [place] [address] Calcium [Mass/Vol] 8.7 mg/dL Low 8.9-11.1 [facility] Comment on above: Performed By: #### 2 210972, 5323210, 5286120, 9934011, 6480706, 79412649 ####[facility] [address] [place] [address] Chloride [Moles/Vol] 107 mmol/L Normal 101-111 [facility] Comment on above: Performed By: #### 2 041500, 6531837, 0201072, 0405978, 0638495, 93020052 ####[facility] [address] [place] [address] CO2 [Moles/Vol] 21 mmol/L Normal 21-31 [facility] Comment on above: Performed By: #### 2 694511, 3978842, 5531466, 4800363, 4632392, 04772826 ####[facility] [address] [place] [address] Glucose [Mass/Vol] 77 mg/dL Normal 55-199 [facility] Comment on above: Result Comment: If t his glucose result represents a fasting glucose, interpretation should refer to the following reference range: 55-99 mg/dL Performed By: #### 2 466937, 3192074, 7670617, 1945930, 9481870, 38298045 ####[facility] [address] [place] [address] Potassium [Moles/Vol] 3.8 mmol/L Normal 3.5-5.3 [facility] Comment on above: Performed By: #### 2 493893, 7911062, 9419008, 0222524, 6417325, 41742598 ####[facility] [address] [place] [address] Sodium [Moles/Vol] 134 mmol/L Low 135-145 [facility] Comment on above: Performed By: #### 2 303547, 5960665, 2926795, 0184343, 6709644, 49454814 ####[facility] [address] [place] [address] BhCG Quanton 06-14-2023 HCG.beta subunit Qn 577763 m[IU]/mL High 1-3 [facility] Comment on above: Result Comment: GEST ATIONAL AGE HCG RANGE (mIU/mL) NON- <1-3 0.2-1 WEEKS 5-50 1-2 WEEKS 50-500 2-3 WEEKS 100-5,000 3-4 WEEKS 500-10,000 4-5 WEEKS 1,000-50,000 5-6 WEEKS 10,000-100,000 6-8 WEEKS 15,000-200,000 8-12 WEEKS 10,000-100,000 Performed By: #### 2 906324 ####[facility] [address] [place] [address] CBC w/ Auto Diffon Erythrocyte distribution width (RBC) [Ratio] 12.6 % Normal 10.9-14.2 [facility] Comment on above: Performed By: #### 2 245651, 6675209, 9104766, 9201319, 9893998, 33582375 ####[facility] [address] [place] [address] Hematocrit (Bld) [Volume fraction] 39.9 % Normal 34.0-46.0 [facility] Comment on above: Performed By: #### 2 703970, 3901434, 1731646, 8722037, 8924128, 95720823 ####[facility] [address] [place] [address] Hemoglobin (Bld) [Mass/Vol] 13.4 g/dL Normal 12.0-16.0 [facility] Comment on above: Performed By: #### 2 174676, 4432343, 1268508, 5890928, 6628836, 78784103 ####[facility] [address] [place] [address] MCH (RBC) [Entitic mass] 29.8 pg Normal 27.0-34.0 [facility] Comment on above: Performed By: #### 2 450544, 6145432, 0753593, 2973497, 7513848, 44005657 ####[address] MCHC (RBC) [Mass/Vol] 33.6 g/dL Normal 31.4-36.0 [facility] Comment on above: Performed By: #### 2 183390, 3411626, 3257271, 7523189, 4303969, 09989377 ####[address] [address] MCV (RBC) [Entitic vol] 88.8 fL Normal 80.0-100.0 [facility] Comment on above: Performed By: #### 2 749431, 5112345, 2797952, 3460883, 7827992, 30813489 ####[address] [address] Platelet mean volume (Bld) [Entitic vol] 8.4 fL Normal 6.4-10.8 [facility] Comment on above: Performed By: #### 2 773412, 6939677, 6255291, 2295934, 9988781, 55454091 ####[address] [address] Platelets (Bld) [#/Vol] 225.0 E9/L Normal 150.0-500.0 [facility] Comment on above: Performed By: #### 2 968794, 3326460, 4199492, 5331994, 5240337, 99383334 ####[address] [address] RBC (Bld) [#/Vol] 4.5 E12/L Normal 4.3-5.9 [facility] Comment on above: Performed By: #### 2 849673, 0514863, 4152525, 0147784, 2853720, 27653090 ####[facility] [address] [place] [address] WBC corrected for nucl RBC Auto (Bld) [#/Vol] 5.4 E9/L Normal 4.0-11.0 [facility] Comment on above: Performed By: #### 2 455153, 5058648, 0063487, 6722599, 6912735, 78409700 ####[facility] [address] [place] [address] CHEMISTRYOrdered By: SYSTEM SYSTEM on 06-14-2023 Albumin [...] 130 mL/min/1.73 m2 Normal >=59mL/min/ 1.73 m2 [facility] Chem S Globulin (S) [Mass/Vol] 3.3 g/dL Normal 1.4 - 4.0 gm/dL FT Remisol Glucose [Mass/Vol] 77 mg/dL Normal 55 - 199 mg/dL FT Remisol HCG.beta subunit Qn 003209 m[IU]/mL High 1 - 3 mIU/mL FT [...] Consent for Treatmenton 05-17 Consent for Treatment [id number]:12 [id number] Normal [facility] ED Clinical Summaryon 2022 ED Clinical Summary Normal [facility] ED Note-Physicianon 06-14-20 ED Note-Physician Normal [facility] Comment on above: Result Comment: Elec tronically Signed By: Jos Ugalde PA-C\.br\Date and Time Signed: 06/14/23 11:58 EDT\.br\Electronically Co-Signed By: Kristian Guillermo DO.br\Date and Time Co-Signed: 06/14/23 17:02 EDT ED Patient Education Noteon 06-14-2023 ED Patient Education Note Normal [facility] ED Patient Summaryon 023 ED Patient Summary Normal [facility] HEMATOLOGYOrdered By: SYSTEM SYSTEM on 06-14-2023 [...] 88.8 fL Normal 80.0 - 100.0 fL [facility] HemeAutoSS Platelet mean volume (Bld) [Entitic vol] 8.4 fL Normal 6.4 - 10.8 fL [facility] HemeAutoSS Platelets (Bld) [#/Vol] 225.0 E9/L Normal 150.0 - 500.0 E9/L [facility] HemeAutoSS RBC (Bld) [#/Vol] 4.5 E12/L Normal 4.3 - 5.9 E12/L [facility] HemeAutoSS WBC corrected for nucl RBC Auto (Bld) [#/Vol] 5.4 E9/L Normal 4.0 - 11.0 E9/L [facility] HemeAutoSS Hep Func Panelon 06-14-2023 Bilirubin.indirect [Mass or moles/Vol] UTC Abnormal 0.1-0.9 [facility] Comment on above: Result Comment: Resu lt verified by Discern Rule. Performed result UTC (Unable to Calculate) was sent as an Alpha code due the inability to calculate a valid numeric value. Performed By: #### 2 759244, 9907010, 8850224, 4575485, 5476170, 67000193 ####[facility] [address] [place] [address] Albumin [Mass/Vol] 3.5 g/dL Normal 3.3-5.0 [facility] Comment on above: Performed By: #### 2 310536, 0506995, 8321300, 9814940, 6190901, 11914719 ####[facility] [address] [place] [address] Albumin/Globulin (S) [Mass conc ratio] 1.1 Normal 1.1-2.2 [facility] Comment on above: Performed By: #### 2 759124, 2116376, 1466573, 5480843, 0964760, 74000692 ####[facility] [address] [place] [address] ALP [Catalytic activity/Vol] 34 Int._Unit/L Normal 21-98 [facility] Comment on above: Performed By: #### 2 669637, 7742518, 0322068, 7069631, 6865525, 23182955 ####[facility] [address] [place] [address] ALT No additional P-5'-P [Catalytic activity/Vol] 13 Int._Unit/L Normal 6-46 [facility] Comment on above: Performed By: #### 2 666660, 8916584, 6061471, 7467374, 2935497, 97398322 ####[address] [address] AST [Catalytic activity/Vol] 17 Int._Unit/L Normal 5-43 [facility] Comment on above: Performed By: #### 2 318761, 1950072, 1803238, 4740144, 9395806, 04133793 ####[address] [address] Bilirubin [Mass/Vol] 0.6 mg/dL Normal 0.0-1.1 [facility] Comment on above: Performed By: #### 2 322533, 5641282, 4089859, 6724379, 0719901, 85171549 ####[address] [address] Globulin (S) [Mass/Vol] 3.3 g/dL Normal 1.4-4.0 [facility] Comment on above: Performed By: #### 2 818391, 5445515, 8484247, 8740847, 8518562, 01905927 ####[address] [address] Protein [Mass/Vol] 6.8 g/dL Normal 6.0-7.8 [facility] Comment on above: Performed By: #### 2 827986, 1286748, 1210091, 6221749, 8876672, 26299578 ####[address] [place] [address] Bilirubin.direct [Mass/Vol] mg/dL Normal 0.1-0.4 [facility] Comment on above: Performed By: #### 2 286166, 4115424, 9230697, 2573933, 9256095, 28069581 ####[facility] [address] [place] [address] Lipase Levelon 06-14-2023 Lipase [Catalytic activity/Vol] 28 U/L Normal 13-58 [facility] Comment on above: Performed By: #### 2 244978, 2115227, 5610562, 4166502, 4865495, 55484315 ####[address] [address] Progress Note-Nurseon 2022 Progress Note-Nurse MAHESH Hinds verbalize d she was unable to locate patient at this time Normal [facility] UA With Cult Reflexon 2022 Bacteria LM Ql (Urine sed) TRACE Normal Trace [facility] Comment on above: Performed By: #### 1 2046411 ####[address] [address] Bilirubin Ql (U) Negative Normal Negative [facility] Comment on above: Performed By: #### 1 2025568 ####[address] [address] Clarity (U) CLEAR Normal Clear [facility] Comment on above: Performed By: #### 1 3823975 ####[address] [address] Color (U) YELLOW Normal Yellow [facility] Comment on above: Performed By: #### 1 4270827 ####[address] [address] Epithelial cells.squamous LM.HPF (Urine sed) [#/Area] 3-4 Normal 0-2 [facility] Comment on above: Performed By: #### 1 2279169 ####[address] [address] Glucose Test strip (U) [Mass/Vol] Negative Normal Negative [facility] [facility] Comment on above: Performed By: #### 1 [id number] ####[address] [place] [address] Hemoglobin Ql (U) Negative Normal Negative [facility] Comment on above: Performed By: #### 1 4164740 ####[address] [address] Ketones (U) [Mass/Vol] Negative Normal Negative [facility] Comment on above: Performed By: #### 1 8423102 ####[address] [address] Ramsay.plasma/Ramsay .RBC (Bld) [Mass ratio] 0-3 Normal 0-3 [facility] Comment on above: Performed By: #### 1 [id number] ####[address] [address] Mucus Ql (Urine sed) TRACE Normal Fish [facility] Comment on above: Performed By: #### 1 3513862 ####[address] [address] Nitrite Ql (U) Negative Normal Negative [facility] Comment on above: Performed By: #### 1 2180325 ####[address] [address] pH (U) 6.5 [pH] Invalid Interpretation Code 5.0-9.0 [facility] Comment on above: Performed By: #### 1 9777612 ####[address] [address] Protein (U) [Mass/Vol] Negative Normal Negative [facility] Comment on above: Performed By: #### 1 8109449 ####[address] [address] Specific gravity (U) [Rel density] 1.015 Invalid Interpretation Code 1.005-1.030 [facility] Comment on above: Performed By: #### 1 3401769 ####[address] [address] Type of Urine collection method Clean Catch Normal [facility] Comment on above: Performed By: #### 1 9152179 ####[facility] [address] [place] [address] Urobilinogen Qn (U) 0.2 {Rola'U}/dL Normal 0.0-1.0 [facility] Comment on above: Performed By: #### 1 5933072 ####[facility] [address] [place] [address] WBC Auto Ql (U) TRACE Abnormal Negative [facility] Comment on above: Performed By: #### 1 7658943 ####[facility] [address] [place] [address] WBC LM.HPF (Urine sed) [#/Area] 0-5 Normal 0-5 [facility] Comment on above: Performed By: #### 1 5486165 ####[facility] [address] [place] [address] URINALYSISOrdered By: An Mccarty on 06-14-2023 Bacteria [...] AM) Normal Negative [facility] UA Auto SS Ramsay.plasma/Ramsay .RBC (Bld) [Mass ratio] 0-3 /HPF Normal [...] [facility] UA Auto SS Urobilinogen Qn (U) 0.0340886 {Rola'U}/dL Normal 0.0 - 1.0 EU/dL [facility] UA Auto SS WBC Auto Ql (U) Trace *ABN* (06/14/23 10:13 AM) Invalid Interpretation Code Negative [facility] UA Auto SS WBC LM.HPF (Urine sed) [#/Area] 0-5 /HPF Normal 0-5/HPF [facility] UA Auto SS US 1st Trimesteron 06-14-2023 US 1st Trimester Normal [facility] eGFRon 06-14-2023 GFR/1.73 sq M.predicted among non-blacks MDRD (S/P/Bld) [Vol rate/Area] 130 mL/min/1.73 m2 Normal >=59 [facility] Comment on above: Order Comment: Order added by Discern Expert. Result Comment: Laborer Livestock lucy kidney disease could be indicated at eGFR's of less than 60 mL/min/1.73m2. Kidney failure is indicated at less than 15 mL/min/1.73m2. Performed By: #### 2 505510, 1852050, 3530517, 1926894, 8877868, 59117433 ####[facility] [address] [place] [address] CHEMISTRYOrdered By: SYSTEM SYSTEM on 06-12-2023 TSH Qn 3.80 m[IU]/L Normal 0.34 - 5.60 mcIU/mL [facility] Remisol Consent for Treatmenton 05-16 Consent for Treatment [id number]#1.00CD:12 7 Normal [facility] Physician Orderon 06-12-2023 Physician Order [id number]#1.00CD:12 7 Normal [facility] TSHon 06-12-2023 TSH Qn 3.80 m[IU]/L Normal 0.34-5.60 [facility] Comment on above: Performed By: #### 2 032025 ####[facility] [address] [place] [address] BhCG Quanton 05-22-2023 HCG.beta subunit Qn 081044 m[IU]/mL High 1-3 [facility] Comment on above: Result Comment: GEST ATIONAL AGE HCG RANGE (mIU/mL) NON- <1-3 0.2-1 WEEKS 5-50 1-2 WEEKS 50-500 2-3 WEEKS 100-5,000 3-4 WEEKS 500-10,000 4-5 WEEKS 1,000-50,000 5-6 WEEKS 10,000-100,000 6-8 WEEKS 15,000-200,000 8-12 WEEKS 10,000-100,000 Performed By: #### 2 860972 ####[facility] [address] [place] [address] Discharge Instructionson Discharge Instructions [id number]#1.00CD:1 27 Normal [facility] ED Clinical Summaryon 2022 ED Clinical Summary Normal [facility] ED Note-Physicianon 05-22-20 23 ED Note-Physician Normal [facility] Comment on above: Result Comment: Elec tronically Signed By: Gopi Rodriguez DObr\Date and Time Signed: 05/21/23 23:17 EDT ED Patient Education Noteon 05-22-2023 ED Patient Education Note Normal [facility] ED Patient Summaryon 023 ED Patient Summary Normal [facility] UA With Cult Reflexon 2022 Bacteria LM Ql (Urine sed) TRACE Normal Trace [facility] Comment on above: Performed By: #### 1 [id number] ####[facility] [address] [place] [address] Bilirubin Ql (U) Negative Normal Negative [facility] Comment on above: Performed By: #### 1 0467941 ####[address] [address] Clarity (U) CLEAR Normal Clear [facility] Comment on above: Performed By: #### 1 1287438 ####[address] [address] Color (U) DARK YELLO Abnormal Yellow [facility] Comment on above: Performed By: #### 1 8210544 ####[address] [address] Epithelial cells.squamous LM.HPF (Urine sed) [#/Area] 0-2 Normal 0-2 [facility] Comment on above: Performed By: #### 1 7915172 ####[address] [address] Glucose Test strip (U) [Mass/Vol] Negative Normal Negative [facility] Comment on above: Performed By: #### 1 1002995 ####[address] [address] Hemoglobin Ql (U) TRACE Abnormal Negative [facility] Comment on above: Performed By: #### 1 9283742 ####[facility] [address] [place] [address] Ketones (U) [Mass/Vol] TRACE Abnormal Negative [facility] Comment on above: Performed By: #### 1 0654648 ####[facility] [address] [place] [address] Ramsay.plasma/Ramsay .RBC (Bld) [Mass ratio] 4-20 Normal 0-3 [facility] Comment on above: Performed By: #### 1 5597102 ####[facility] [address] [place] [address] Mucus Ql (Urine sed) 1+ Normal Fish [facility] Comment on above: Performed By: #### 1 7056732 ####[facility] [address] [place] [address] Nitrite Ql (U) Negative Normal Negative [facility] Comment on above: Performed By: #### 1 1347036 ####[address] [address] pH (U) 6.0 [pH] Invalid Interpretation Code 5.0-9.0 [facility] Comment on above: Performed By: #### 1 5525851 ####[address] [address] Protein (U) [Mass/Vol] 2+ Abnormal Negative [facility] Comment on above: Performed By: #### 1 2574450 ####[address] [address] Specific gravity (U) [Rel density] >=1.030 Invalid Interpretation Code 1.005-1.030 [facility] Comment on above: Performed By: #### 1 3878666 ####[address] [address] Type of Urine collection method Clean Catch Normal [facility] Comment on above: Performed By: #### 1 0663851 ####[address] [address] Urobilinogen Qn (U) 0.2 {Rola'U}/dL Normal 0.0-1.0 [facility] Comment on above: Performed By: #### 1 8729441 ####[address] [address] WBC Auto Ql (U) Negative Normal Negative [facility] Comment on above: Performed By: #### 1 2860267 ####[address] [address] WBC LM.HPF (Urine sed) [#/Area] 0-5 Normal 0-5 [facility] Comment on above: Performed By: #### 1 3860704 ####[address] [place] [address] US 1st Trimesteron 05-22-2023 US 1st Trimester Normal [facility] Auto Diffon 05-21-2023 Basophils/100 WBC (Bld) 1.0 % Normal 0.0-2.0 [facility] Comment on above: Order Comment: Order Added by Discern Expert. Performed By: #### 2 554043, 7422717, 19052764, 15141259, 0629419, 4481855, 2351374 ####[address] [address] Basophils/Leukocytes Auto (Bld) [Pure # fraction] 0.1 E9/L Normal 0.0-0.2 [facility] Comment on above: Order Comment: Order Added by Discern Expert. Performed By: #### 2 405605, 2006777, 58221366, 11196086, 1060483, 7531531, 4193019 ####[address] [address] Eosinophils/100 WBC (Bld) 1.5 % Normal 0.0-8.0 [facility] Comment on above: Order Comment: Order Added by Discern Expert. Performed By: #### 2 204192, 9684513, 49908173, 29091689, 7188614, 5203999, 6399512 ####[address] [address] Eosinophils/Leukocytes Auto (Bld) [Pure # fraction] 0.1 E9/L Normal 0.0-0.5 [facility] Comment on above: Order Comment: Order Added by Discern Expert. Performed By: #### 2 238523, 9637244, 75091199, 06978640, 5313624, 6172088, 1405342 ####[address] [address] Lymphocytes/100 WBC (Bld) 36.6 % Normal 14.0-50.0 [facility] Comment on above: Order Comment: Order Added by Discern Expert. Performed By: #### 2 603967, 2806031, 53094924, 73670736, 9764945, 9993294, 8680314 ####[address] [place] [address] Lymphocytes/Leukocytes Auto (Bld) [Pure # fraction] 2.5 E9/L Normal 1.0-4.0 [facility] Comment on above: Order Comment: Order Added by Discern Expert. Performed By: #### 2 571285, 8614815, 28815105, 78023720, 5641567, 8136064, 3812583 ####[address] [place] [address] Monocytes/100 WBC (Bld) 8.2 % Normal 4.0-14.0 [facility] Comment on above: Order Comment: Order Added by Discern Expert. Performed By: #### 2 796623, 5578336, 21104565, 00543388, 4834472, 3427989, 0951239 ####[address] [address] Monocytes/Leukocytes Auto (Bld) [Pure # fraction] 0.6 E9/L Normal 0.2-1.0 [facility] Comment on above: Order Comment: Order Added by Discern Expert. Performed By: #### 2 008624, 9994374, 11826851, 77255825, 2224644, 0580046, 2802118 ####[address] [address] Neutrophils/100 WBC (Bld) 52.7 % Normal 36.0-75.0 [facility] Comment on above: Order Comment: Order Added by Discern Expert. Performed By: #### 2 517279, 4192998, 87985735, 55578302, 0774701, 1206667, 0439914 ####[address] [place] [address] Neutrophils/Leukocytes Auto (Bld) [Pure # fraction] 3.6 E9/L Normal 2.0-7.5 [facility] Comment on above: Order Comment: Order Added by Discern Expert. Performed By: #### 2 265512, 1142119, 78090882, 04676024, 8680270, 9620414, 0596472 ####[facility] [address] [place] [address] BMPon 05-21-2023 Creatinine [Mass/Vol] 0.7 mg/dL Normal 0.5-1.3 [facility] Comment on above: Performed By: #### 2 414420, 9542744, 29837316, 35062146, 3910054, 7749367, 9680327 ####[facility] [address] [place] [address] Urea nitrogen [Mass/Vol] 8 mg/dL Normal 5-21 [facility] Comment on above: Performed By: #### 2 875350, 8368865, 39890452, 00360598, 9351504, 6384361, 9351090 ####[facility] [address] [place] [address] Urea nitrogen/Creatinine [Mass ratio] 11 No Units Normal 10-20 [facility] Comment on above: Performed By: #### 2 040738, 8964562, 60815676, 05247640, 3696930, 9738962, 9561057 ####[facility] [address] [place] [address] Anion gap [Moles/Vol] 12 mmol/L Normal 6-16 [facility] Comment on above: Performed By: #### 2 236766, 4179695, 20822162, 17463609, 1208757, 0534841, 4393163 ####[facility] [address] [place] [address] Calcium [Mass/Vol] 9.2 mg/dL Normal 8.9-11.1 [facility] Comment on above: Performed By: #### 2 766938, 3255922, 50706386, 03004603, 8957742, 8252761, 0802376 ####[facility] [address] [place] [address] Chloride [Moles/Vol] 104 mmol/L Normal 101-111 [facility] Comment on above: Performed By: #### 2 359861, 3573953, 26970140, 12356310, 8798428, 5152162, 3528535 ####[facility] [address] [place] [address] CO2 [Moles/Vol] 24 mmol/L Normal 21-31 [facility] Comment on above: Performed By: #### 2 539492, 0551299, 30840181, 62827195, 4816984, 6586143, 0734733 ####[facility] [address] [place] [address] Glucose [Mass/Vol] 87 mg/dL Normal 55-199 [facility] Comment on above: Result Comment: If t his glucose result represents a fasting glucose, interpretation should refer to the following reference range: 55-99 mg/dL Performed By: #### 2 561355, 5371212, 34931472, 54674722, 2440751, 5012115, 5519405 ####[facility] [address] [place] [address] Potassium [Moles/Vol] 3.2 mmol/L Low 3.5-5.3 [facility] Comment on above: Performed By: #### 2 177470, 5720859, 95347526, 29572984, 0010537, 8365891, 0467316 ####[facility] [address] [place] [address] Sodium [Moles/Vol] 137 mmol/L Normal 135-145 [facility] Comment on above: Performed By: #### 2 673286, 8964972, 62369185, 05098685, 2552745, 5727496, 6490016 ####[facility] [address] [place] [address] CBC w/ Auto Diffon 3 Erythrocyte distribution width (RBC) [Ratio] 13.3 % Normal 10.9-14.2 [facility] Comment on above: Performed By: #### 2 019295, 6019268, 30092948, 24171526, 4043248, 2797005, 6221151 ####[address] [place] [address] Hematocrit (Bld) [Volume fraction] 39.0 % Normal 34.0-46.0 [facility] Comment on above: Performed By: #### 2 208696, 6463920, 27414631, 58085951, 9557999, 4322345, 8376228 ####[address] [address] Hemoglobin (Bld) [Mass/Vol] 13.3 g/dL Normal 12.0-16.0 [facility] Comment on above: Performed By: #### 2 403490, 6955329, 70535453, 89241179, 0597240, 7099460, 5233061 ####[place] [place] MCH (RBC) [Entitic mass] 30.3 pg Normal 27.0-34.0 [facility] Comment on above: Performed By: #### 2 978212, 2237398, 64675042, 08358998, 6342944, 2932394, 4895515 ####[address] [address] MCHC (RBC) [Mass/Vol] 34.2 g/dL Normal 31.4-36.0 [facility] Comment on above: Performed By: #### 2 976029, 9648629, 72824180, 54285293, 3703714, 6999113, 9340805 ####[address] [address] MCV (RBC) [Entitic vol] 88.7 fL Normal 80.0-100.0 [facility] Comment on above: Performed By: #### 2 465267, 6090942, 41637847, 68416668, 2976309, 9545165, 2463049 ####[address] [place] [address] Platelet mean volume (Bld) [Entitic vol] 7.8 fL Normal 6.4-10.8 [facility] Comment on above: Performed By: #### 2 982834, 8157904, 87566556, 47075037, 0842589, 8610219, 4800911 ####[address] [address] Platelets (Bld) [#/Vol] 225.0 E9/L Normal 150.0-500.0 [facility] Comment on above: Performed By: #### 2 817571, 0348723, 32174557, 83434383, 0993025, 8609843, 3711217 ####[address] [address] RBC (Bld) [#/Vol] 4.4 E12/L Normal 4.3-5.9 [facility] Comment on above: Performed By: #### 2 490025, 1048340, 29978165, 26735222, 5527127, 7363131, 2050986 ####[address] [address] WBC corrected for nucl RBC Auto (Bld) [#/Vol] 6.8 E9/L Normal 4.0-11.0 [facility] Comment on above: Performed By: #### 2 811886, 9127920, 68359595, 42592029, 0271072, 6231653, 3267839 ####[address] [address] CHEMISTRYOrdered By: SYSTEM SYSTEM on 05-21-2023 HCG.beta subunit Qn 517952 m[IU]/mL High 1 - 3 mIU/mL [facility] [...] 120 mL/min/1.73 m2 Normal >=59mL/min/ 1.73 m2 [facility] Chem S Globulin (S) [Mass/Vol] 3.1 g/dL [...] Remisol Consent for Treatmenton Consent for Treatment [id number]#1.00CD:12 7 Normal [facility] HEMATOLOGYOrdered By: SYSTEM SYSTEM on 05-21-2023 [...] Bilirubin.indirect [Mass or moles/Vol] UTC Abnormal 0.1-0.9 [facility] Comment on above: Result Comment: Resu lt verified by Discern Rule. Performed result UTC (Unable to Calculate) was sent as an Alpha code due the inability to calculate a valid numeric value. Performed By: #### 2 406718, 5827551, 34930071, 75156114, 9204111, 0252198, 6074944 ####[facility] [address] [place] [address] Albumin [Mass/Vol] 3.8 g/dL Normal 3.3-5.0 [facility] Comment on above: Performed By: #### 2 982112, 8470870, 10656680, 21455455, 9216345, 4491458, 4483694 ####[facility] [address] [place] [address] Albumin/Globulin (S) [Mass conc ratio] 1.2 Normal 1.1-2.2 [facility] Comment on above: Performed By: #### 2 568997, 0628753, 10568168, 65174933, 1280261, 8408844, 5667073 ####[facility] [address] [place] [address] ALP [Catalytic activity/Vol] 42 Int._Unit/L Normal 21-98 [facility] Comment on above: Performed By: #### 2 506896, 6552483, 99277517, 05072003, 6515430, 0377938, 8443588 ####[address] [place] [address] ALT No additional P-5'-P [Catalytic activity/Vol] 13 Int._Unit/L Normal 6-46 [facility] Comment on above: Performed By: #### 2 265846, 2896223, 60959312, 54095890, 0299535, 2266572, 8503032 ####[address] [address] AST [Catalytic activity/Vol] 14 Int._Unit/L Normal 5-43 [facility] Comment on above: Performed By: #### 2 235564, 2947201, 91658084, 94574260, 3419954, 7344560, 8482978 ####[address] [address] Bilirubin [Mass/Vol] 0.5 mg/dL Normal 0.0-1.1 [facility] Comment on above: Performed By: #### 2 762692, 5777383, 99849306, 86306356, 9014955, 4144362, 0183849 ####[address] [place] [address] Globulin (S) [Mass/Vol] 3.1 g/dL Normal 1.4-4.0 [facility] Comment on above: Performed By: #### 2 601844, 8962989, 95096044, 00037521, 7199030, 7232863, 2181699 ####[facility] [address] [place] [address] Protein [Mass/Vol] 6.9 g/dL Normal 6.0-7.8 [facility] Comment on above: Performed By: #### 2 818530, 9808268, 61640057, 95939356, 3947757, 6903962, 4341896 ####[facility] [address] [place] [address] Bilirubin.direct [Mass/Vol] mg/dL Normal 0.1-0.4 [facility] Comment on above: Performed By: #### 2 437735, 9716172, 85884062, 14223368, 3351418, 7082496, 5915091 ####[facility] [address] [place] [address] Lipase Levelon 05-21-2023 Lipase [Catalytic activity/Vol] 31 U/L Normal 13-58 [facility] Comment on above: Performed By: #### 2 175359, 9340282, 15972259, 90838635, 1259981, 7560932, 8403851 ####[facility] [address] [place] [address] Troponin 0 Hr.on 05-21-2023 Troponin I.cardiac [Mass/Vol] 2.50 pg/mL Low 10.10-27.10 [facility] Comment on above: Result Comment: The 95% CI (Confidence Interval) PPV (Positive Predictive Value) for myocardial infarction in females is 38 pg/mL, in males 51 pg/mL. The results should be used in conjunction with clinical conditions of myocardial infarction.(Access High Sensitivity Troponin I Instructions For Use, Ziggy Tolna, May 2018) Performed By: #### 2 275082, 3697651, 25410843, 32773975, 8643202, 7943641, 4472783 ####[facility] [address] [place] [address] URINALYSISOrdered By: Jose Miguel nelson on 05-21-2023 [...] Interpretation Code Negative [facility] UA Auto SS Ramsay.plasma/Ramsay .RBC (Bld) [Mass ratio] 4-20 /HPF Normal [...] [facility] UA Auto SS Urobilinogen Qn (U) 0.5985070 {Rola'U}/dL Normal 0.0 - 1.0 EU/dL [facility] UA Auto SS WBC Auto Ql (U) Negative (05/21/23 10:17 PM) Normal Negative [facility] UA Auto SS WBC LM.HPF (Urine sed) [#/Area] 0-5 /HPF Normal 0-5/HPF [facility] UA Auto SS eGFRon 05-21-2023 GFR/1.73 sq M.predicted among non-blacks MDRD (S/P/Bld) [Vol rate/Area] 120 mL/min/1.73 m2 Normal >=59 [facility] Comment on above: Order Comment: Order added by Discern Expert. Result Comment: Laborer Livestock lucy kidney disease could be indicated at eGFR's of less than 60 mL/min/1.73m2. Kidney failure is indicated at less than 15 mL/min/1.73m2. Performed By: #### 2 996944, 3326243, 40966562, 92435197, 1084420, 3011334, 7214258 ####[facility] [address] [place] [address] PAP [id number] 05-03-2023 C. trachomatis rRNA MAHAD+probe Ql (Cvx) Negative Invalid Interpretation Code Negative [facility] Comment on above: Performed By: #### 3 338553487 ####[facility] [address] [place] [address] Cytology report Cyto stain Doc (Cvx/Vag) Note Invalid Interpretation Code [facility] Comment on above: Result Comment: TEST S RESULT FLAG UNITS REF RANGE LAB Clinician Provided Cytology InformationSource.............EndocervixNo. of containers..01 ThinPrep VialDIAGNOSIS: 01NEGATIVE FOR INTRAEPITHELIAL LESION OR MALIGNANCY.Specimen adequacy: 01Satisfactory for evaluation. Endocervical and/or squamous metaplasticcells (endocervical component) are present.Performed by: Eliana Shea Finished Goods Stock Clerk (ASCP). 01Note: Note 01The Pap smear is [...] Low,>-Panic High,A-Abnormal,AA-Critical Abnormal -----Performed at:[address] [facility] [address] [place] [address]RbyzitJoya Walton MD, Performed By: #### 3 [id number] ####[address] [address] N. gonorrhoeae rRNA MAHAD+probe Ql (Cvx) Negative Invalid Interpretation Code Negative [facility] Comment on above: Result Comment: Perf ormed at: [facility] [address] [id number] MD Anton HinsonPerformed at: =[facility] [address] [id number] MD Anton Hinson Performed By: #### 3 851555403 ####[address] [place] [address] C Urineon 05-02-2023 Bacteria identified Cx Nom (U) Normal [facility] Comment on above: Performed By: #### 2 592211 ####[address] [place] [address] HIV Screen 4th Generation wR fxon 05-01-2023 HIV 1+2 Ab+HIV1 p24 Ag IA Ql Non-Reactive Invalid Interpretation Code Non Reactive [facility] Comment on above: Result Comment: HIV NegativeHIV-1/HIV-2 antibodies and HIV-1 p24 antigen were NOT detected.There is no laboratory evidence of HIV infection.Performed at: [id number] [place], [place] [id number] PhD Caroline [place] Performed By: #### 1 01078646, 58227270, 727442793, 5640837, 7201573 ####[facility] [address] [place] [address] Hep Bs Agon 05-01-2023 HBV surface Ag IA Ql Negative Invalid Interpretation Code Negative [facility] Comment on above: Result Comment: Perf ormed at: [address] [id number] PhD [facility] Performed By: #### 1 26351080, 15408852, 349692381, 4676121, 9569370 ####[facility] [address] [place] [address] RPR with Conf Rfxon 05-01-20 23 Reagin Ab RPR Ql (S) Non-Reactive Invalid Interpretation Code Non Reactive [facility] Comment on above: Result Comment: Perf ormed at: [address] [id number] PhD [facility] Performed By: #### 1 90820829, 65426554, 298532695, 2276281, 2856151 ####[facility] [address] [place] [address] Rubella IgGon 05-01-2023 Rubella virus IgG Qn (S) [IU]/mL Low Immune >0.99 [facility] Comment on above: Result Comment: Non- immune <0.90Equivocal 0.90 - 0.99Immune >0.99Performed at: [address] [id number] PhD [facility] [place] Performed By: #### 1 35714652, 03125167, 901344771, 1100002, 7825794 ####[facility] [address] [place] [address] ABO/Rhon 04-30-2023 ABO/Rh Positive Invalid Interpretation Code [facility] Comment on above: Performed By: #### 2 182909, 61457277 ####[facility] [address] [place] [address] ABSCon 04-30-2023 ABSC Gel Interp Negative Normal [facility] Comment on above: Performed By: #### 2 153342, 26039728 ####[address] [place] [address] BLOOD BANKOrdered By: Diamond Junior on 04-30-2023 ABO/Rh Interp Positive Invalid Interpretation Code [facility] BB Subsection ABSC Gel Interp Negative (04/30/23 9:30 AM) Normal [facility] BB Subsection BhCG Quanton 04-30-2023 [place] [address] m[IU]/mL High 1-3 [facility] Comment on above: Result Comment: GEST ATIONAL AGE HCG RANGE (mIU/mL) NON- <1-3 0.2-1 WEEKS 5-50 1-2 WEEKS 50-500 2-3 WEEKS 100-5,000 3-4 WEEKS 500-10,000 4-5 WEEKS 1,000-50,000 5-6 WEEKS 10,000-100,000 6-8 WEEKS 15,000-200,000 8-12 WEEKS 10,000-100,000 Performed By: #### 2 809111 ####[facility] [address] [place] [address] CBC w/Indiceson 04-30-2023 Erythrocyte distribution width (RBC) [Ratio] 13.7 % Normal 10.9-14.2 [facility] Comment on above: Performed By: #### 1 [id number], 01149960, 977540897, 5705170, 0634881 ####[facility] [address] [place] [address] Hematocrit (Bld) [Volume fraction] 40.7 % Normal 34.0-46.0 [facility] Comment on above: Performed By: #### 1 19056044, 78208553, 554133559, 1753093, 0757611 ####[facility] [address] [place] [address] Hemoglobin (Bld) [Mass/Vol] 13.8 g/dL Normal 12.0-16.0 [facility] Comment on above: Performed By: #### 1 98603253, 12957852, 056808423, 4931302, 0546303 ####[address] [address] MCH (RBC) [Entitic mass] 30.5 pg Normal 27.0-34.0 [facility] Comment on above: Performed By: #### 1 54644466, 68156774, 057319609, 4247146, 3916570 ####[address] [address] MCHC (RBC) [Mass/Vol] 33.9 g/dL Normal 31.4-36.0 [facility] Comment on above: Performed By: #### 1 57545058, 49070218, 935935961, 5989126, 4996831 ####[address] [address] MCV (RBC) [Entitic vol] 89.9 fL Normal 80.0-100.0 [facility] Comment on above: Performed By: #### 1 58173722, 10136330, 226032834, 9136305, 1472834 ####[address] [place] [address] Platelet mean volume (Bld) [Entitic vol] 8.2 fL Normal 6.4-10.8 [facility] Comment on above: Performed By: #### 1 32462219, 25491600, 749098511, 7433302, 5233000 ####[address] [place] [address] Platelets (Bld) [#/Vol] 279.0 E9/L Normal 150.0-500.0 [facility] Comment on above: Performed By: #### 1 98232747, 22233029, 806777890, 6819591, 0656694 ####[facility] [address] [place] [address] RBC (Bld) [#/Vol] 4.5 E12/L Normal 4.3-5.9 [facility] Comment on above: Performed By: #### 1 54409951, 43140131, 190266033, 5108482, 3441961 ####[facility] [address] [place] [address] WBC corrected for nucl RBC Auto (Bld) [#/Vol] 5.8 E9/L Normal 4.0-11.0 [facility] Comment on above: Performed By: #### 1 93034975, 46225780, 086443551, 1055489, 9678886 ####[facility] [address] [place] [address] CHEMISTRYOrdered By: Pomogatel SYSTEM on 04-30-2023 [place] [address] m[IU]/mL High 1 - 3 mIU/mL [facility] Remisol Consent for Treatmenton 04-14 Consent for Treatment [id number]#1.00CD:12 7 Normal [facility] HEMATOLOGYOrdered By: Temi Romero on 04-30-2023 [...] 33.9 g/dL Normal 31.4 - 36.0 gm/dL [facility] HemeAutoSS MCV (RBC) [Entitic vol] 89.9 fL Normal 80.0 - 100.0 fL [facility] HemeAutoSS Platelet mean volume (Bld) [Entitic vol] 8.2 fL Normal 6.4 - 10.8 fL [facility] HemeAutoSS Platelets (Bld) [#/Vol] 279.0 E9/L Normal 150.0 - 500.0 E9/L [facility] HemeAutoSS RBC (Bld) [#/Vol] 4.5 E12/L Normal 4.3 - 5.9 E12/L [facility] HemeAutoSS WBC corrected for nucl RBC Auto (Bld) [#/Vol] 5.8 E9/L Normal 4.0 - 11.0 E9/L [facility] HemeAutoSS PAP [id number] 04-30-2023 Collection Technique BRUSH-SPATULA Normal F [facility] Comment on above: Performed By: #### 3 [id number] ####[facility] [address] [place] [address] Gynecological Body Site ENDOCERVIX Normal [facility] Comment on above: Performed By: #### 3 [id number] ####[facility] [address] [place] [address] Physician Orderon 04-30-2023 Physician Order [id number]#1.00CD:1 27 Normal [facility] Physician Order [id number]#1.00CD:1 27 Normal [facility] BhCG Quanton 04-26-2023 [place] [address] m[IU]/mL High 1-3 F [facility] Comment on above: Result Comment: GEST ATIONAL AGE HCG RANGE (mIU/mL) NON- <1-3 0.2-1 WEEKS 5-50 1-2 WEEKS 50-500 2-3 WEEKS 100-5,000 3-4 WEEKS 500-10,000 4-5 WEEKS 1,000-50,000 5-6 WEEKS 10,000-100,000 6-8 WEEKS 15,000-200,000 8-12 WEEKS 10,000-100,000 Performed By: #### 2 590058 ####[facility] [address] [place] [address] CHEMISTRYOrdered By: SYSTEM SYSTEM on 04-26-2023 [place] [address] m[IU]/mL High 1 - 3 mIU/mL [facility] Remisol Consent for Treatmenton 04-14 Consent for Treatment [id number]#1.00CD:12 7 Normal [facility] Discharge Instructionson Discharge Instructions [id number]#1.00CD:1 27 Normal [facility] ED Clinical Summaryon 2022 ED Clinical Summary Normal [facility] ED Note-Physicianon 04-26-20 ED Note-Physician Normal [facility] Comment on above: Result Comment: Elec tronically Signed By: Jos Ugalde PA-C\.br\Date and Time Signed: 04/26/23 10:59 EDT\.br\Electronically Co-Signed By: Laura Noel M.D.\.br\Date and Time Co-Signed: 04/26/23 11:01 EDT ED Patient Education Noteon 04-26-2023 ED Patient Education Note Normal [facility] ED Patient Summaryon 023 ED Patient Summary Normal [facility] UA With Cult Reflexon 2022 Bilirubin Ql (U) Negative Normal Negative [facility] Comment on above: Performed By: #### 1 [id number] ####[facility] [address] [place] [address] Clarity (U) CLEAR Normal Clear [facility] Comment on above: Performed By: #### 1 0622751 ####[facility] [address] [place] [address] Color (U) YELLOW Normal Yellow [facility] Comment on above: Performed By: #### 1 5761884 ####[facility] [address] [place] [address] Crystals LM Ql (Urine sed) Present Normal [facility] Comment on above: Performed By: #### 1 7526600 ####[address] [address] Epithelial cells.squamous LM.HPF (Urine sed) [#/Area] 0-2 Normal 0-2 [facility] Comment on above: Performed By: #### 1 3995512 ####[address] [address] Glucose Test strip (U) [Mass/Vol] Negative Normal Negative [facility] Comment on above: Performed By: #### 1 4800442 ####[address] [address] Hemoglobin Ql (U) Negative Normal Negative [facility] Comment on above: Performed By: #### 1 5491646 ####[address] [address] Ketones (U) [Mass/Vol] Negative Normal Negative [facility] Comment on above: Performed By: #### 1 2565798 ####[address] [address] Ramsay.plasma/Ramsay .RBC (Bld) [Mass ratio] 0-3 Normal 0-3 [facility] Comment on above: Performed By: #### 1 5363817 ####[address] [address] Mucus Ql (Urine sed) 2+ Normal Fish [facility] Comment on above: Performed By: #### 1 8215653 ####[address] [address] Nitrite Ql (U) Negative Normal Negative [facility] Comment on above: Performed By: #### 1 0381333 ####[address] [address] pH (U) 8.5 [pH] Invalid Interpretation Code 5.0-9.0 [facility] Comment on above: Performed By: #### 1 2457668 ####[facility] [address] [place] [address] Protein (U) [Mass/Vol] Negative Normal Negative Fi [facility] Comment on above: Performed By: #### 1 8127218 ####[facility] [address] [place] [address] Specific gravity (U) [Rel density] 1.015 Invalid Interpretation Code 1.005-1.030 [facility] Comment on above: Performed By: #### 1 1316242 ####[facility] [address] [place] [address] Type of Urine collection method Clean Catch Normal [facility] Comment on above: Performed By: #### 1 0201166 ####[address] [address] Urobilinogen Qn (U) 1.0 {Rola'U}/dL Normal 0.0-1.0 [facility] Comment on above: Performed By: #### 1 4833263 ####[facility] [address] [place] [address] WBC Auto Ql (U) Negative Normal Negative [facility] Comment on above: Performed By: #### 1 6558484 ####[facility] [address] [place] [address] WBC LM.HPF (Urine sed) [#/Area] 0-5 Normal 0-5 [facility] Comment on above: Performed By: #### 1 9865813 ####[facility] [address] [place] [address] URINALYSISOrdered By: An Lassiter on 04-26-2023 Bilirubin [...] AM) Normal Negative [facility] UA Auto SS Ramsay.plasma/Ramsay .RBC (Bld) [Mass ratio] 0-3 /HPF Normal [...] Desc Clean Catch (04/26/23 9:15 AM) Normal [facility] UA Auto SS Urobilinogen Qn (U) 1.2164655 {Rola'U}/dL Normal 0.0 - 1.0 EU/dL FT UA Auto SS WBC Auto Ql (U) Negative (04/26/23 9:15 AM) Normal Negative [facility] UA Auto SS WBC LM.HPF (Urine sed) [#/Area] 0-5 /HPF Normal 0-5/HPF [facility] UA Auto SS US 1st Trimesteron 04-26-2023 US 1st Trimester Normal [facility] US Transvaginalon 04-26-2023 US Transvaginal Normal [facility] Coding Summary.on 02-02-2023 Coding Summary. Normal [facility] Auto Diffon 01-31-2023 Basophils/100 WBC (Bld) 0.3 % Normal 0.0-2.0 [facility] Comment on above: Order Comment: Order Added by Discern Expert. Performed By: #### 2 308634, 1329398, 37259965, 9310715 ####[address] [address] Basophils/Leukocytes Auto (Bld) [Pure # fraction] 0.0 E9/L Normal 0.0-0.2 [facility] Comment on above: Order Comment: Order Added by Discern Expert. Performed By: #### 2 513329, 7917416, 38969384, 6903617 ####[address] [address] Eosinophils/100 WBC (Bld) 2.8 % Normal 0.0-8.0 [facility] Comment on above: Order Comment: Order Added by Discern Expert. Performed By: #### 2 605100, 7961723, 41327690, 5904687 ####[address] [address] Eosinophils/Leukocytes Auto (Bld) [Pure # fraction] 0.1 E9/L Normal 0.0-0.5 [facility] Comment on above: Order Comment: Order Added by Discern Expert. Performed By: #### 2 181129, 6134768, 48738367, 3473829 ####[address] [address] Lymphocytes/100 WBC (Bld) 30.0 % Normal 14.0-50.0 [facility] Comment on above: Order Comment: Order Added by Discern Expert. Performed By: #### 2 944550, 6526603, 46641654, 2021586 ####[address] [address] Lymphocytes/Leukocytes Auto (Bld) [Pure # fraction] 1.5 E9/L Normal 1.0-4.0 [facility] Comment on above: Order Comment: Order Added by Discern Expert. Performed By: #### 2 257930, 1675762, 06143974, 0736961 ####[address] [place] [address] Monocytes/100 WBC (Bld) 7.0 % Normal 4.0-14.0 [facility] Comment on above: Order Comment: Order Added by Discern Expert. Performed By: #### 2 682433, 7318105, 70318916, 0633429 ####[address] [address] Monocytes/Leukocytes Auto (Bld) [Pure # fraction] 0.4 E9/L Normal 0.2-1.0 [facility] Comment on above: Order Comment: Order Added by Discern Expert. Performed By: #### 2 743626, 3752634, 81642828, 5277009 ####[address] [address] Neutrophils/100 WBC (Bld) 59.9 % Normal 36.0-75.0 [facility] Comment on above: Order Comment: Order Added by Discern Expert. Performed By: #### 2 301043, 0286160, 60828661, 0691686 ####[address] [address] Neutrophils/Leukocytes Auto (Bld) [Pure # fraction] 3.1 E9/L Normal 2.0-7.5 [facility] Comment on above: Order Comment: Order Added by Discern Expert. Performed By: #### 2 344393, 8017358, 51949474, 1475298 ####[address] [address] B hCG Qualon 01-31-2023 Beta hCG Ql Negative Normal [facility] Comment on above: Performed By: #### 2 8998579, 42369219 ####[address] [address] BMPon 01-31-2023 Creatinine [Mass/Vol] 0.8 mg/dL Normal 0.5-1.3 [facility] Comment on above: Performed By: #### 2 525430, 0431286, 39333239, 0618078 ####[facility] [address] [place] [address] Urea nitrogen [Mass/Vol] 9 mg/dL Normal 5-21 [facility] Comment on above: Performed By: #### 2 086941, 9177001, 56986284, 5010489 ####[facility] [address] [place] [address] Urea nitrogen/Creatinine [Mass ratio] 11 No Units Normal 10-20 [facility] Comment on above: Performed By: #### 2 859510, 4487842, 62784017, 7332200 ####[facility] [address] [place] [address] Anion gap [Moles/Vol] 12 mmol/L Normal 6-16 [facility] Comment on above: Performed By: #### 2 164691, 9465960, 12022153, 4833915 ####[facility] [address] [place] [address] Calcium [Mass/Vol] 9.1 mg/dL Normal 8.9-11.1 [facility] Comment on above: Performed By: #### 2 615059, 0953503, 66094693, 9153628 ####[facility] [address] [place] [address] Chloride [Moles/Vol] 104 mmol/L Normal 101-111 [facility] Comment on above: Performed By: #### 2 107366, 5344436, 91318862, 0236026 ####[facility] [address] [place] [address] CO2 [Moles/Vol] 23 mmol/L Normal 21-31 [facility] Comment on above: Performed By: #### 2 894371, 4457528, 44982160, 7355596 ####[facility] [address] [place] [address] Glucose [Mass/Vol] 84 mg/dL Normal 55-199 [facility] Comment on above: Result Comment: If t his glucose result represents a fasting glucose, interpretation should refer to the following reference range: 55-99 mg/dL Performed By: #### 2 949247, 1718261, 16900622, 3454687 ####[facility] [address] [place] [address] Potassium [Moles/Vol] 3.5 mmol/L Normal 3.5-5.3 [facility] Comment on above: Performed By: #### 2 703407, 6338619, 51357220, 3004261 ####[facility] [address] [place] [address] Sodium [Moles/Vol] 135 mmol/L Normal 135-145 [facility] Comment on above: Performed By: #### 2 429354, 0317757, 14538399, 3178053 ####[address] [address] CBC w/ Auto Diffon Erythrocyte distribution width (RBC) [Ratio] 12.9 % Normal 10.9-14.2 [facility] Comment on above: Performed By: #### 2 911790, 4836662, 81062575, 2961262 ####[address] [place] [address] Hematocrit (Bld) [Volume fraction] 46.4 % High 34.0-46.0 [facility] Comment on above: Performed By: #### 2 135253, 8832343, 21463324, 1558958 ####[address] [place] [address] Hemoglobin (Bld) [Mass/Vol] 15.0 g/dL Normal 12.0-16.0 [facility] Comment on above: Performed By: #### 2 554466, 3341379, 07457666, 6644382 ####[facility] [address] [place] [address] MCH (RBC) [Entitic mass] 28.6 pg Normal 27.0-34.0 [facility] Comment on above: Performed By: #### 2 534276, 0908674, 31607527, 8046413 ####[address] [place] [address] MCHC (RBC) [Mass/Vol] 32.3 g/dL Normal 31.4-36.0 [facility] Comment on above: Performed By: #### 2 970581, 6558163, 18307014, 6578500 ####[address] MCV (RBC) [Entitic vol] 88.5 fL Normal 80.0-100.0 [facility] Comment on above: Performed By: #### 2 043466, 4979278, 55070590, 7264004 ####[address] Platelet mean volume (Bld) [Entitic vol] 7.9 fL Normal 6.4-10.8 [facility] Comment on above: Performed By: #### 2 078283, 3703094, 82375365, 9278655 ####[address] Platelets (Bld) [#/Vol] 300.0 E9/L Normal 150.0-500.0 [facility] Comment on above: Performed By: #### 2 849169, 3149510, 43305104, 3707226 ####[address] [address] RBC (Bld) [#/Vol] 5.2 E12/L Normal 4.3-5.9 [facility] Comment on above: Performed By: #### 2 259557, 5031325, 07182850, 8145406 ####[address] [address] WBC corrected for nucl RBC Auto (Bld) [#/Vol] 5.1 E9/L Normal 4.0-11.0 [facility] Comment on above: Performed By: #### 2 400330, 1057611, 94150536, 6459517 ####[address] [place] [address] CHEMISTRYOrdered By: SYSTEM SYSTEM on 01-31-2023 Anion [...] rate/Area] mL/min/1.73 m2 Normal >=59mL/min/ 1.73 m2 [facility] Chem S Glucose [Mass/Vol] 84 mg/dL Normal [...] Coag CTA Headon 01-31-2023 CTA Head Normal [facility] Consent for Treatmenton 01-13 Consent for Treatment [id number]#1.00CD:12 7 Normal [facility] Discharge Instructionson Discharge Instructions [id number]#1.00CD:1 27 Normal [facility] ED Clinical Summaryon 2022 ED Clinical Summary Normal [facility] ED Note-Physicianon 02-01-20 ED Note-Physician Normal [facility] Comment on above: Result Comment: Elec tronically Signed By: Kristian Guillermo DO.br\Date and Time Signed: 01/31/23 14:00 EDT ED Patient Education Noteon 01-31-2023 ED Patient Education Note Normal [facility] ED Patient Summaryon 023 ED Patient Summary Normal [facility] HEMATOLOGYOrdered By: SYSTEM SYSTEM on 01-31-2023 [...] 3.1 E9/L Normal 2.0 - 7.5 E9/L [facility] HemeAutoSS HEMATOLOGYOrdered By: Janet Reyes on 01-31-2023 [...] Coag (PPP) [Time] 31.3 second(s) Normal 25.1-36.5 [facility] Comment on above: Result Comment: Para [...] the same coagulation reagent and instrumentation as [facility]. Currently there are no coagulation studies available worldwide for children to 14 days, and no normal ranges. Heparin therapeutic range (represented by Anti-Factor Xa activity of 0.2 - 0.4 U/mL) corresponds to PTT of 56.6 - 109.0 sec. Performed By: #### 2 2595279, 45300901 ####[facility] [address] [place] [address] INR Coag (PPP) [Relative time] 1.1 {INR} Invalid Interpretation Code [facility] Comment on above: Result Comment: INR results are specifically intended to assess patients stabilized on long-term Anticoagulation therapy suggested INR?s ?Less Intensive Anticoagulation? 2.0 ? 3.0Conventional Range 3.0 ? 4.5 Performed By: #### 2 1467665, 43902993 ####[facility] [address] [address] PT Coag (PPP) [Time] 12.3 second(s) Normal 9.4-12.5 [facility] Comment on above: Result Comment: 15 [...] the same coagulation reagent and instrumentation as [facility]. Currently there are no coagulation studies available worldwide for children to 14 days, and no normal ranges. Performed By: #### 2 8188889, 18010624 ####[facility] [address] [place] [address] Pre-Arrival Noteon 3 Pre-Arrival Note Normal [facility] SEROLOGYOrdered By: Nova Mccarty on 01-31-2023 Beta hCG Ql Negative (01/31/23 10:14 AM) Normal [facility] Man Sero eGFRon 01-31-2023 GFR/1.73 sq M.predicted among blacks MDRD (S/P/Bld) [Vol rate/Area] mL/min/{1.73_m2} Normal >=59 [facility] Comment on above: Order Comment: Order added by Discern Expert. Result Comment: eGFR is race adjusted. AA=. Performed By: #### 2 680993, 2520788, 23971215, 7727019 ####[facility] [address] [place] [address] GFR/1.73 sq M.predicted among non-blacks MDRD (S/P/Bld) [Vol rate/Area] mL/min/{1.73_m2} Normal >=59 [facility] Comment on above: Order Comment: Order added by Discern Expert. Result Comment: [employer] lucy kidney disease could be indicated at eGFR's of less than 60 mL/min/1.73m2. Kidney failure is indicated at less than 15 mL/min/1.73m2. Performed By: #### 2 490528, 1531974, 64878861, 8903367 ####[facility] [address] [place] [address] Nursing Assessmenton 023 Nursing Assessment [id number]#1.00CD:1 27 Normal [facility] Coding Summary.on 10-02-2022 Coding Summary. Normal [facility] Coding Summary. Normal [facility] Delivery Summaryon 2 Delivery Summary Normal [facility] Comment on above: Result Comment: Elec tronically Signed By: Fabiana MARION, Luis Carlos Byrd\.br\Date and Time Signed: 09/29/22 09:25 EST General Message Officeon General Message Office Normal [facility] Insurance Correspondence Off iceon 09-28-2022 Insurance Correspondence Office [id number]#1.00CD:1 27 Normal [facility] Discharge Instructionson Discharge Instructions [id number]#1.00CD:12 7 Normal [facility] Inpatient Clinical Summaryon 09-27-2022 Inpatient Clinical Summary Normal [facility] Inpatient Patient Summaryon 09-27-2022 Inpatient Patient Summary Normal [facility] CBC w/Indiceson 09-26-2022 Erythrocyte distribution width (RBC) [Ratio] 13.1 % Normal 10.9-14.2 [facility] Comment on above: Performed By: #### 2 241807 ####[facility] [address] [place] [address] Hematocrit (Bld) [Volume fraction] 32.1 % Low 34.0-46.0 [facility] Comment on above: Performed By: #### 2 547183 ####[facility] [address] [place] [address] Hemoglobin (Bld) [Mass/Vol] 11.1 g/dL Low 12.0-16.0 [facility] Comment on above: Performed By: #### 2 242348 ####[facility] [address] [place] [address] MCH (RBC) [Entitic mass] 30.9 pg Normal 27.0-34.0 [facility] Comment on above: Performed By: #### 2 261413 ####[facility] [address] [place] [address] MCHC (RBC) [Mass/Vol] 34.5 g/dL Normal 31.4-36.0 [facility] Comment on above: Performed By: #### 2 441106 ####[facility] [address] [place] [address] MCV (RBC) [Entitic vol] 89.7 fL Normal 80.0-100.0 [facility] Comment on above: Performed By: #### 2 898102 ####[facility] [address] [place] [address] Platelet mean volume (Bld) [Entitic vol] 10.1 fL Normal 6.4-10.8 [facility] Comment on above: Performed By: #### 2 863860 ####[facility] [address] [place] [address] Platelets (Bld) [#/Vol] 204.0 E9/L Normal 150.0-500.0 [facility] Comment on above: Performed By: #### 2 568562 ####[address] [address] RBC (Bld) [#/Vol] 3.6 E12/L Low 4.3-5.9 [facility] Comment on above: Performed By: #### 2 429920 ####[address] [address] WBC corrected for nucl RBC Auto (Bld) [#/Vol] 23.2 E9/L High 4.0-11.0 [facility] Comment on above: Performed By: #### 2 236021 ####[address] [address] Nursing Assessmenton 022 Nursing Assessment [id number]#1.00CD:12 7 Normal [facility] Progress Note-Physicianon Progress Note-Physician [facility] Comment on above: Result Comment: Elec tronically Signed By: Fabiana MARION, Luis Carlos Byrd\.medina\Date and Time Signed: 09/26/22 08:19 EST Coding Summary.on 09-25-2022 Coding Summary. Normal [facility] Coding Summary. Normal [facility] Consenton 09-25-2022 Consent [id number]#1.00CD:1 27 Normal [facility] Consent for Anesthesiaon Consent for Anesthesia [id number]#1.00CD:12 7 Normal [facility] Discharge Instructionson Discharge Instructions [id number]#1.00CD:1 27 Normal [facility] Help Me Grow Referralon 09-14 Help Me Grow Referral [id number]#1.00CD:12 7 Normal [facility] Recordson Records [id number]#1.00CD:12 7 Normal [facility] Progress Note-Physicianon Progress Note-Physician [facility] Comment on above: Result Comment: Elec tronically Signed By: Jimmy Corcoran Jr., DO\.br\Date and Time Signed: 09/25/22 08:31 EST Progress Note-Physician Normal [facility] Comment on above: Result Comment: Elec tronically Signed By: Jimmy Corcoran Jr., DO\.br\Date and Time Signed: 09/25/22 08:31 EST UA With Cult Reflexon 2021 Bilirubin Ql (U) Negative Normal Negative [facility] Comment on above: Order Comment: Urina ry Catheter Insertion triggered Urinalysis With Culture Reflex order by discern. Performed By: #### 1 [id number] ####[facility] [address] [place] [address] Clarity (U) CLEAR Normal Clear [facility] Comment on above: Order Comment: Urina ry Catheter Insertion triggered Urinalysis With Culture Reflex order by discern. Performed By: #### 1 [id number] ####[facility] [address] [place] [address] Color (U) YELLOW Normal Yellow [facility] Comment on above: Order Comment: Urina ry Catheter Insertion triggered Urinalysis With Culture Reflex order by discern. Performed By: #### 1 [id number] ####[facility] [address] [place] [address] Epithelial cells.squamous LM.HPF (Urine sed) [#/Area] 0-2 Normal 0-2 [facility] Comment on above: Order Comment: Urina ry Catheter Insertion triggered Urinalysis With Culture Reflex order by discern. Performed By: #### 1 [id number] ####[facility] [address] [place] [address] Glucose Test strip (U) [Mass/Vol] Negative Normal Negative [facility] Comment on above: Order Comment: Urina ry Catheter Insertion triggered Urinalysis With Culture Reflex order by discern. Performed By: #### 1 [id number] ####[facility] [address] [place] [address] Hemoglobin Ql (U) Negative Normal Negative [facility] Comment on above: Order Comment: Urina ry Catheter Insertion triggered Urinalysis With Culture Reflex order by discern. Performed By: #### 1 [id number] ####[facility] [address] [place] [address] Ketones (U) [Mass/Vol] Negative Normal Negative [facility] Comment on above: Order Comment: Urina ry Catheter Insertion triggered Urinalysis With Culture Reflex order by discern. Performed By: #### 1 [id number] ####[facility] [address] [place] [address] Ramsay.plasma/Ramsay .RBC (Bld) [Mass ratio] 0-3 Normal 0-3 [facility] Comment on above: Order Comment: Urina ry Catheter Insertion triggered Urinalysis With Culture Reflex order by discern. Performed By: #### 1 [id number] ####[facility] [address] [place] [address] 25683 Nitrite Ql (U) Negative Normal Negative [facility] Comment on above: Order Comment: Urina ry Catheter Insertion triggered Urinalysis With Culture Reflex order by discern. Performed By: #### 1 [id number] ####[facility] [address] [place] [address] pH (U) 7.0 [pH] Invalid Interpretation Code 5.0-9.0 [facility] Comment on above: Order Comment: Urina ry Catheter Insertion triggered Urinalysis With Culture Reflex order by discern. Performed By: #### 1 9056660 ####[address] [address] Protein (U) [Mass/Vol] Negative Normal Negative [facility] Comment on above: Order Comment: Urina ry Catheter Insertion triggered Urinalysis With Culture Reflex order by discern. Performed By: #### 1 [id number] ####[place] [address] Specific gravity (U) [Rel density] <=1.005 Invalid Interpretation Code 1.005-1.030 [facility] Comment on above: Order Comment: Urina ry Catheter Insertion triggered Urinalysis With Culture Reflex order by discern. Performed By: #### 1 [id number] ####[place] [address] Type of Urine collection method Vyas Normal [facility] Comment on above: Order Comment: Urina ry Catheter Insertion triggered Urinalysis With Culture Reflex order by discern. Performed By: #### 1 [id number] ####[place] [address] Urobilinogen Qn (U) 0.2 {Rola'U}/dL Normal 0.0-1.0 [facility] Comment on above: Order Comment: Urina ry Catheter Insertion triggered Urinalysis With Culture Reflex order by discern. Performed By: #### 1 [id number] ####[place] [address] WBC Auto Ql (U) Negative Normal Negative [facility] Comment on above: Order Comment: Urina ry Catheter Insertion triggered Urinalysis With Culture Reflex order by discern. Performed By: #### 1 8520076 ####[place] [address]857 WBC LM.HPF (Urine sed) [#/Area] 0-5 Normal 0-5 [facility] Comment on above: Order Comment: Urina ry Catheter Insertion triggered Urinalysis With Culture Reflex order by discern. Performed By: #### 1 [id number] ####[address] [place] [address] Bilirubin Ql (U) Negative Normal Negative [facility] Comment on above: Performed By: #### 1 1351610 ####[facility] [address] [place] [address] Clarity (U) CLEAR Normal Clear [facility] Comment on above: Performed By: #### 1 [id number] ####[facility] [address] [place] [address] Color (U) YELLOW Normal Yellow [facility] Comment on above: Performed By: #### 1 [id number] ####[address] [address] Epithelial cells.squamous LM.HPF (Urine sed) [#/Area] 0-2 Normal 0-2 [facility] Comment on above: Performed By: #### 1 [id number] ####[facility] [address] [place] [address] Glucose Test strip (U) [Mass/Vol] Negative Normal Negative [facility] Comment on above: Performed By: #### 1 9975100 ####[facility] [address] [place] [address]23 Hemoglobin Ql (U) Negative Normal Negative [facility] Comment on above: Performed By: #### 1 6679273 ####[facility] [address] [place] [address] 57317 Ketones (U) [Mass/Vol] Negative Normal Negative [facility] Comment on above: Performed By: #### 1 3170516 ####[facility] [address] [place] [address] 157[address] Ramsay.plasma/Ramsay .RBC (Bld) [Mass ratio] 0-3 Normal 0-3 [facility] Comment on above: Performed By: #### 1 2611246 ####[facility] [address] [place] [address] Nitrite Ql (U) Negative Normal Negative [facility] Comment on above: Performed By: #### 1 5223524 ####[address] [address] pH (U) 6.0 [pH] Invalid Interpretation Code 5.0-9.0 [facility] Comment on above: Performed By: #### 1 6948050 ####[place] [address] Protein (U) [Mass/Vol] Negative Normal Negative [facility] Comment on above: Performed By: #### 1 9648632 ####[place] [address] Specific gravity (U) [Rel density] <=1.005 Invalid Interpretation Code 1.005-1.030 [facility] Comment on above: Performed By: #### 1 [id number] ####[place] [address] Type of Urine collection method Clean Catch Normal [facility] Comment on above: Performed By: #### 1 [id number] ####[place] [address] Urobilinogen Qn (U) 0.2 {Rola'U}/dL Normal 0.0-1.0 [facility] Comment on above: Performed By: #### 1 3607224 ####[place] [address]47857 WBC Auto Ql (U) Negative Normal Negative [facility] Comment on above: Performed By: #### 1 5060695 ####[place] [address]47857 WBC LM.HPF (Urine sed) [#/Area] 0-5 Normal 0-5 [facility] Comment on above: Performed By: #### 1 2087478 ####[address] [address] Vaccinationson 09-25-2022 Vaccinations [id number]#1.00CD:1 27 Normal [facility] Vaccinations [id number]#1.00CD:1 27 Normal [facility] ABO/Rhon 09-24-2022 ABO/Rh Positive Invalid Interpretation Code [facility] Comment on above: Performed By: #### 1 9387720, [id number], 12955315, 3586868 ####[facility] [address] [place] [address] ABO/Rh History Checkon 09-24 ABO/Rh History Check Verified Hx Blood Type Normal [facility] Comment on above: Performed By: #### 1 1089906, [id number], [id number], 8919630 ####[facility] [address] [place] [address] ABSCon 09-24-2022 ABSC Gel Interp Negative Normal [facility] Comment on above: Performed By: #### 1 8866582, 05354989, 10755607, 1290040 ####[address] [address] Blood Bank ID#on 09-24-2022 BBID# [id number] Invalid Interpretation Code [facility] Comment on above: Performed By: #### 1 3917093, 18709635, [id number], 9842475 ####[place] [address] [place] [address] CBC w/Indiceson 09-24-2022 Erythrocyte distribution width (RBC) [Ratio] 13.0 % Normal 10.9-14.2 [facility] Comment on above: Performed By: #### 2 770634 ####[address] [address] Hematocrit (Bld) [Volume fraction] 38.0 % Normal 34.0-46.0 [facility] Comment on above: Performed By: #### 2 429592 ####[place] [address] [place] [address] Hemoglobin (Bld) [Mass/Vol] 12.8 g/dL Normal 12.0-16.0 [facility] Comment on above: Performed By: #### 2 823017 ####[place] [address] [address] MCH (RBC) [Entitic mass] 31.3 pg Normal 27.0-34.0 [facility] Comment on above: Performed By: #### 2 834860 ####[address] [address] MCHC (RBC) [Mass/Vol] 33.7 g/dL Normal 31.4-36.0 [facility] Comment on above: Performed By: #### 2 124323 ####[address] [address] MCV (RBC) [Entitic vol] 92.9 fL Normal 80.0-100.0 [facility] Comment on above: Performed By: #### 2 946283 ####[address] [address] Platelet mean volume (Bld) [Entitic vol] 9.8 fL Normal 6.4-10.8 [facility] Comment on above: Performed By: #### 2 318458 ####[address] [address] Platelets (Bld) [#/Vol] 238.0 E9/L Normal 150.0-500.0 [facility] Comment on above: Performed By: #### 2 276570 ####[address] [address] RBC (Bld) [#/Vol] 4.1 E12/L Low 4.3-5.9 [facility] Comment on above: Performed By: #### 2 183054 ####[address] [address] WBC corrected for nucl RBC Auto (Bld) [#/Vol] 12.8 E9/L High 4.0-11.0 [facility] Comment on above: Performed By: #### 2 392038 ####[address] [address] Consent for Treatmenton 09-14 Consent for Treatment [id number]#1.00CD:12 7 [facility] Consent for Treatment [id number]#1.00CD:1 27 [facility] Consent for Treatmenton Consent for Treatment [id number]#1.00CD:12 7 [facility] Discharge Instructionson Discharge Instructions [id number]#1.00CD:12 7 [facility] Inpatient Clinical Summaryon 09-22-2022 Inpatient Clinical Summary [facility] Inpatient Patient Summaryon 09-22-2022 Inpatient Patient Summary [facility] Insurance Correspondence Off iceon 09-22-2022 Insurance Correspondence Office [id number]#1.00CD: 127 [facility] Nursing Assessmenton 022 Nursing Assessment [id number]#1.00CD:1 27 [facility] Nursing Assessment [id number]#1.00CD:12 7 [facility] Discharge Instructionson Discharge Instructions [id number]#1.00CD:127 [facility] Inpatient Clinical Summaryon 09-20-2022 Inpatient Clinical Summary [facility] Inpatient Patient Summaryon 09-20-2022 Inpatient Patient Summary [facility] Insurance Correspondence Off iceon 09-20-2022 Insurance Correspondence Office [id number]#1.00CD:127 [facility] Consent for Treatmenton Consent for Treatment [id number]#1.00CD:12 7 [facility] Discharge Instructionson Discharge Instructions [id number]#1.00CD:1 27 Normal [facility] Inpatient Clinical Summaryon 09-19-2022 Inpatient Clinical Summary Normal [facility] Inpatient Patient Summaryon 09-19-2022 Inpatient Patient Summary Normal [facility] Insurance Correspondenceon 1 11-20-2021 Insurance Correspondence [id number]#1.00CD:1 27 Normal [facility] UA With Cult Reflexon 2021 Bilirubin Ql (U) Negative Normal Negative [facility] Comment on above: Performed By: #### 1 6327610 ####[facility] [address] [place] [address] Clarity (U) CLEAR Normal Clear [facility] Comment on above: Performed By: #### 1 4489796 ####[facility] [address] [place] [address] Color (U) YELLOW Normal Yellow [facility] Comment on above: Performed By: #### 1 6400313 ####[facility] [address] [place] [address] Epithelial cells.squamous LM.HPF (Urine sed) [#/Area] 0-2 Normal 0-2 [facility] Comment on above: Performed By: #### 1 4637132 ####[facility] [address] [place] [address] Glucose Test strip (U) [Mass/Vol] Negative Normal Negative [facility] Comment on above: Performed By: #### 1 6574424 ####[facility] [address] [place] [address] Hemoglobin Ql (U) Negative Normal Negative [facility] Comment on above: Performed By: #### 1 9436223 ####[facility] [address] [place] [address] Ketones (U) [Mass/Vol] Negative Normal Negative [facility] Comment on above: Performed By: #### 1 0299682 ####[address] [address] Ramsay.plasma/Ramsay .RBC (Bld) [Mass ratio] 0-3 Normal 0-3 [facility] Comment on above: Performed By: #### 1 2735578 ####[address] [address] Nitrite Ql (U) Negative Normal Negative [facility] Comment on above: Performed By: #### 1 2149882 ####[address] [address] pH (U) 7.0 [pH] Invalid Interpretation Code 5.0-9.0 [facility] Comment on above: Performed By: #### 1 3746856 ####[address] [address] Protein (U) [Mass/Vol] Negative Normal Negative [facility] Comment on above: Performed By: #### 1 9994924 ####[address] [address] Specific gravity (U) [Rel density] <=1.005 Invalid Interpretation Code 1.005-1.030 [facility] Comment on above: Performed By: #### 1 1641643 ####[address] [address] Type of Urine collection method Clean Catch Normal [facility] Comment on above: Performed By: #### 1 4560070 ####[address] [address] Urobilinogen Qn (U) 0.2 {Rola'U}/dL Normal 0.0-1.0 [facility] Comment on above: Performed By: #### 1 1562086 ####[address] [address] WBC Auto Ql (U) Negative Normal Negative [facility] Comment on above: Performed By: #### 1 2232278 ####[address] [address] WBC LM.HPF (Urine sed) [#/Area] 0-5 Normal 0-5 [facility] Comment on above: Performed By: #### 1 3691224 ####[facility] [address] [place] [address] URINALYSISOrdered By: Jeanette Castle on 09-19-2022 Bilirubin [...] AM) Normal Negative [facility] UA Auto SS Ramsay.plasma/Ramsay .RBC (Bld) [Mass ratio] 0-3 /HPF Normal [...] [facility] UA Auto SS Urobilinogen Qn (U) 0.7358134 {Rola'U}/dL Normal 0.0 - 1.0 EU/dL [facility] UA Auto SS WBC Auto Ql (U) Negative (09/19/22 1:44 AM) Normal Negative [facility] UA Auto SS WBC LM.HPF (Urine sed) [#/Area] 0-5 /HPF Normal 0-5/HPF [facility] UA Auto SS Coding Summary.on 09-18-2022 Coding Summary. Normal [facility] Nursing Assessmenton Nursing Assessment [id number]#1.00CD:12 7 Normal [facility] Coding Summary.on 09-15-2022 Coding Summary. Normal [facility] Coding Summary.on 09-14-2022 Coding Summary. Normal [facility] Consent for Treatmenton Consent for Treatment [id number]#1.00CD:12 7 [facility] Consent for Treatment [id number]#1.00CD:12 7 Normal [facility] Discharge Instructionson Discharge Instructions [id number]#1.00CD:12 7 Normal [facility] Inpatient Clinical Summaryon 09-14-2022 Inpatient Clinical Summary Normal [facility] Inpatient Patient Summaryon 09-14-2022 Inpatient Patient Summary [facility] Insurance Correspondence Off iceon 09-14-2022 Insurance Correspondence Office [id number]#1.00CD:12 7 Normal [facility] Nursing Assessmenton Nursing Assessment [id number]#1.00CD:1 27 Normal [facility] UA With Cult Reflexon 2021 Bacteria LM Ql (Urine sed) TRACE Normal Trace [facility] Comment on above: Performed By: #### 1 [id number] ####[facility] [address] [place] [address] Bilirubin Ql (U) Negative Normal Negative [facility] Comment on above: Performed By: #### 1 2457364 ####[facility] [address] [place] [address] Clarity (U) CLEAR Normal Clear [facility] Comment on above: Performed By: #### 1 4120972 ####[facility] [address] [place] [address] Color (U) YELLOW Normal Yellow [facility] Comment on above: Performed By: #### 1 6164801 ####[facility] [address] [place] [address] Crystals LM Ql (Urine sed) Present Normal [facility] Comment on above: Performed By: #### 1 9013265 ####[address] [address] Epithelial cells.squamous LM.HPF (Urine sed) [#/Area] 0-2 Normal 0-2 [facility] Comment on above: Performed By: #### 1 8543823 ####[facility] [address] [place] [address] Glucose Test strip (U) [Mass/Vol] Negative Normal Negative [facility] Comment on above: Performed By: #### 1 6244861 ####[facility] [address] [place] [address] Hemoglobin Ql (U) Negative Normal Negative [facility] Comment on above: Performed By: #### 1 2181384 ####[facility] [address] [place] [address] Ketones (U) [Mass/Vol] Negative Normal Negative [facility] Comment on above: Performed By: #### 1 3710554 ####[facility] [address] [place] [address] Ramsay.plasma/Ramsay .RBC (Bld) [Mass ratio] 0-3 Normal 0-3 [facility] Comment on above: Performed By: #### 1 7421111 ####[facility] [address] [place] [address] Mucus Ql (Urine sed) TRACE Normal [facility] Comment on above: Performed By: #### 1 9214788 ####[place] David [address] [address] Nitrite Ql (U) Negative Normal Negative [facility] Comment on above: Performed By: #### 1 6359964 ####[address] [address] pH (U) 6.0 [pH] Invalid Interpretation Code 5.0-9.0 [facility] Comment on above: Performed By: #### 1 4404374 ####[place] [address]857 Protein (U) [Mass/Vol] Negative Normal Negative [facility] Comment on above: Performed By: #### 1 1595054 ####[place] [address] Specific gravity (U) [Rel density] <=1.005 Invalid Interpretation Code 1.005-1.030 [facility] Comment on above: Performed By: #### 1 7363520 ####[place] [address] Type of Urine collection method Random Urine Normal [facility] Comment on above: Performed By: #### 1 2201686 ####[place] [address] Urobilinogen Qn (U) 0.2 {Rola'U}/dL Normal 0.0-1.0 [facility] Comment on above: Performed By: #### 1 8823873 ####[place] [address]857 WBC Auto Ql (U) TRACE Abnormal Negative [facility] Comment on above: Performed By: #### 1 2994607 ####[address] [address] WBC LM.HPF (Urine sed) [#/Area] 0-5 Normal 0-5 [facility] Comment on above: Performed By: #### 1 4251309 ####[address] [address] URINALYSISOrdered By: An Lassiter on 09-14-2022 Bacteria [...] AM) Normal Negative [facility] UA Auto SS Ramsay.plasma/Ramsay .RBC (Bld) [Mass ratio] 0-3 /HPF Normal [...] [facility] UA Auto SS Urobilinogen Qn (U) 0.6414414 {Rola'U}/dL Normal 0.0 - 1.0 EU/dL [facility] UA Auto SS WBC Auto Ql (U) Trace *ABN* (09/14/22 9:25 AM) Invalid Interpretation Code Negative [facility] UA Auto SS WBC LM.HPF (Urine sed) [#/Area] 0-5 /HPF Normal 0-5/HPF [facility] UA Auto SS Coding Summary.on 09-12-2022 Coding Summary. Normal [facility] Consent for Treatmenton 08-16 Consent for Treatment [id number]#1.00CD:12 7 Normal [facility] Discharge Instructionson Discharge Instructions [id number]#1.00CD:12 7 [facility] Discharge Instructions [id number]#1.00CD:1 27 Normal [facility] Inpatient Clinical Summaryon 09-12-2022 Inpatient Clinical Summary Normal [facility] Inpatient Patient Summaryon 09-12-2022 Inpatient Patient Summary Normal [facility] Insurance Correspondenceon 11-12-2021 Insurance Correspondence [id number]#1.00CD:12 7 [facility] Insurance Correspondence Off iceon 09-12-2022 Insurance Correspondence Office [id number]#1.00CD:1 27 Normal [facility] Nursing Assessmenton 022 Nursing Assessment [id number]#1.00CD:1 27 Normal [facility] UA With Cult Reflexon 2021 Bilirubin Ql (U) Negative Normal Negative [facility] Comment on above: Performed By: #### 1 6469036 ####[facility] [address] [place] [address] Clarity (U) CLEAR Normal Clear [facility] Comment on above: Performed By: #### 1 3300935 ####[facility] [address] [place] [address] Color (U) YELLOW Normal Yellow [facility] Comment on above: Performed By: #### 1 9107912 ####[facility] [address] [place] [address] Crystals LM Ql (Urine sed) Present Normal [facility] Comment on above: Performed By: #### 1 3930350 ####[place] [address] [place] [address] Epithelial cells.squamous LM.HPF (Urine sed) [#/Area] 3-4 Normal 0-2 [facility] Comment on above: Performed By: #### 1 7068379 ####[facility] [address] [place] [address] Glucose Test strip (U) [Mass/Vol] Negative Normal Negative [facility] Comment on above: Performed By: #### 1 8183481 ####[address] [address] Hemoglobin Ql (U) Negative Normal Negative [facility] Comment on above: Performed By: #### 1 3947712 ####[facility] [address] [place] [address] Ketones (U) [Mass/Vol] Negative Normal Negative [facility] Comment on above: Performed By: #### 1 7458806 ####[facility] [address] [place] [address] Ramsay.plasma/Ramsay .RBC (Bld) [Mass ratio] 0-3 Normal 0-3 [facility] Comment on above: Performed By: #### 1 0233212 ####[facility] [address] [place] [address] Nitrite Ql (U) Negative Normal Negative [facility] Comment on above: Performed By: #### 1 9621016 ####[place] [address] [place] [address] pH (U) 6.0 [pH] Invalid Interpretation Code 5.0-9.0 [facility] Comment on above: Performed By: #### 1 9849470 ####[facility] [address] [place] [address] Protein (U) [Mass/Vol] Negative Normal Negative [facility] Comment on above: Performed By: #### 1 3079528 ####[facility] [address] [place] [address] Specific gravity (U) [Rel density] 1.010 Invalid Interpretation Code 1.005-1.030 [facility] Comment on above: Performed By: #### 1 7439372 ####[facility] [address] [place] [address] Type of Urine collection method Clean Catch Normal [facility] Comment on above: Performed By: #### 1 7254824 ####[facility] [address] [place] [address] Urobilinogen Qn (U) 0.2 {Rola'U}/dL Normal 0.0-1.0 [facility] Comment on above: Performed By: #### 1 [id number] ####[place] [address] WBC Auto Ql (U) Negative Normal Negative [facility] Comment on above: Performed By: #### 1 [id number] ####[facility] [address] [place] [address] WBC LM.HPF (Urine sed) [#/Area] 0-5 Normal 0-5 [facility] Comment on above: Performed By: #### 1 [id number] ####[facility] [address] [place], [place] [address] URINALYSISOrdered By: Jose Miguel nelson on 09-12-2022 [...] PM) Normal Negative [facility] UA Auto SS Ramsay.plasma/Ramsay .RBC (Bld) [Mass ratio] 0-3 /HPF Normal [...] FT UA Auto SS Urobilinogen Qn (U) 0.0273244 {Rola'U}/dL Normal 0.0 - 1.0 EU/dL [facility] UA Auto SS WBC Auto Ql (U) Negative (09/12/22 8:15 PM) Normal Negative [facility] UA Auto SS WBC LM.HPF (Urine sed) [#/Area] 0-5 /HPF Normal 0-5/HPF [facility] UA Auto SS Coding Summary.on 09-11-2022 Coding Summary. Normal [facility] Consent for Treatmenton 08-16 Consent for Treatment [id number]#1.00CD:12 7 Normal [facility] Discharge Instructionson Discharge Instructions [id number]#1.00CD:1 27 Normal [facility] Inpatient Clinical Summaryon 09-08-2022 Inpatient Clinical Summary Normal [facility] Inpatient Patient Summaryon 09-08-2022 Inpatient Patient Summary Normal [facility] Coding Summary.on 09-06-2022 Coding Summary. Normal [facility] Discharge Instructionson Discharge Instructions [id number]#[id number]:1 27 Normal [facility] ED Clinical Summaryon 2021 ED Clinical Summary Normal [facility] ED Note-Nursingon 09-06-2022 ED Note-Nursing pt given d/c instruc tions and educated on importance of follow up. pt educated on new medications. pt verbalized understanding of instructions and readiness for d/c. pt walked self ambulatory to waiting room in stable condition Normal [facility] ED Patient Education Noteon 09-06-2022 ED Patient Education Note Normal [facility] ED Patient Summaryon 022 ED Patient Summary Normal [facility] XR Chest Single Viewon 09-06 XR Chest Single View Normal [facility] Auto Diffon 09-05-2022 Basophils/100 WBC (Bld) 1.0 % Normal 0.0-2.0 [facility] Comment on above: Order Comment: Order Added by Discern Expert. Performed By: #### 2 352780, 74726876, 33774647, 3871226, 80155745, 48621738, 8992159 ####[facility] [address] [place] [address] Basophils/Leukocytes Auto (Bld) [Pure # fraction] 0.1 E9/L Normal 0.0-0.2 [facility] Comment on above: Order Comment: Order Added by Discern Expert. Performed By: #### 2 214785, 58094209, 57357062, 8987692, 98987459, 79565958, 1615402 ####[facility] [address] [place] [address] Eosinophils/100 WBC (Bld) 1.4 % Normal 0.0-8.0 [facility] Comment on above: Order Comment: Order Added by Discern Expert. Performed By: #### 2 465284, 28719568, 63961402, 3451114, 32092291, 06423864, 3080071 ####[facility] [address] [place] [address] Eosinophils/Leukocytes Auto (Bld) [Pure # fraction] 0.2 E9/L Normal 0.0-0.5 [facility] Comment on above: Order Comment: Order Added by Discern Expert. Performed By: #### 2 152305, 25684559, 55509802, 3630536, 24713343, 35416852, 6316427 ####[address] [place] [address] Lymphocytes/100 WBC (Bld) 18.8 % Normal 14.0-50.0 [facility] Comment on above: Order Comment: Order Added by Discern Expert. Performed By: #### 2 128444, 20172547, 50118493, 0692596, 37449586, 50814870, 7395843 ####[address] [address] Lymphocytes/Leukocytes Auto (Bld) [Pure # fraction] 2.0 E9/L Normal 1.0-4.0 [facility] Comment on above: Order Comment: Order Added by Discern Expert. Performed By: #### 2 440217, 51270799, 38984357, 0089092, 67567679, 51329974, 0499314 ####[address] [place] [address] Monocytes/100 WBC (Bld) 6.8 % Normal 4.0-14.0 [facility] Comment on above: Order Comment: Order Added by Discern Expert. Performed By: #### 2 395009, 41187924, 02242864, 9534604, 45477342, 33708268, 5527046 ####[address] [address] Monocytes/Leukocytes Auto (Bld) [Pure # fraction] 0.7 E9/L Normal 0.2-1.0 [facility] Comment on above: Order Comment: Order Added by Discern Expert. Performed By: #### 2 091151, 26531705, 34759159, 0208227, 02093027, 49014126, 2951348 ####[facility] [address] [place] [address] Neutrophils/100 WBC (Bld) 72.0 % Normal 36.0-75.0 [facility] Comment on above: Order Comment: Order Added by Discern Expert. Performed By: #### 2 217120, 97174297, 15373484, 9307504, 18885158, 63897936, 0390689 ####[facility] [address] [place] [address] Neutrophils/Leukocytes Auto (Bld) [Pure # fraction] 7.8 E9/L High 2.0-7.5 [facility] Comment on above: Order Comment: Order Added by Discern Expert. Performed By: #### 2 882314, 72116850, 23838939, 4164572, 40529566, 67944754, 5649912 ####[facility] [address] [place] [address] BMPon 09-05-2022 Creatinine [Mass/Vol] 0.7 mg/dL Normal 0.5-1.3 [facility] Comment on above: Performed By: #### 2 828320, 81912606, 52146207, 7554568, 71826614, 77125566, 7075576 ####[facility] [address] [place] [address] Urea nitrogen [Mass/Vol] 7 mg/dL Normal 5-21 [facility] Comment on above: Performed By: #### 2 256027, 62376404, 91529092, 0373370, 52665162, 50915329, 7478032 ####[facility] [address] [place] [address] Urea nitrogen/Creatinine [Mass ratio] 10 No Units Normal 10-20 [facility] Comment on above: Performed By: #### 2 254010, 30468522, 66572757, 7433173, 96095677, 04665839, 7698777 ####[facility] [address] [place] [address] Anion gap [Moles/Vol] 10 mmol/L Normal 6-16 [facility] Comment on above: Performed By: #### 2 715707, 56661218, 67551307, 3353136, 10570999, 59155190, 1854351 ####[facility] [address] [place] [address] Calcium [Mass/Vol] 8.8 mg/dL Low 8.9-11.1 [facility] Comment on above: Performed By: #### 2 404785, 25088411, 00498117, 6951431, 61276638, 32270435, 9917590 ####[facility] [address] [place] [address] Chloride [Moles/Vol] 102 mmol/L Normal 101-111 [facility] Comment on above: Performed By: #### 2 813184, 47318032, 60470918, 7679344, 41123243, 34248127, 0569156 ####[facility] [address] [place] [address] CO2 [Moles/Vol] 22 mmol/L Normal 21-31 [facility] Comment on above: Performed By: #### 2 917355, 07294623, 97975445, 8970055, 01168427, 48448034, 3436387 ####[facility] [address] [place] [address] Glucose [Mass/Vol] 87 mg/dL Normal 55-199 [facility] Comment on above: Result Comment: If t his glucose result represents a fasting glucose, interpretation should refer to the following reference range: 55-99 mg/dL Performed By: #### 2 864856, 34269783, 91582177, 7777299, 00265808, 74290580, 4770378 ####[facility] [address] [facility] [place] [address] Potassium [Moles/Vol] 3.3 mmol/L Low 3.5-5.3 [facility] Comment on above: Performed By: #### 2 381460, 64872313, 22285926, 7221997, 14632549, 47793476, 1520333 ####[facility] [address] [place] [address] Sodium [Moles/Vol] 131 mmol/L Low 135-145 [facility] Comment on above: Performed By: #### 2 987715, 87833597, 65367721, 3933065, 45737257, 51046073, 1005183 ####[facility] [address] [place] [address] BNPon 09-05-2022 Int Ctr BNP Pass Normal [facility] Comment on above: Performed By: #### 2 139160, 58988695, 98298344, 7428140, 59703725, 56077065, 8651632 ####[facility] [address] [place] [address] Natriuretic peptide B (Bld) [Mass/Vol] 8 pg/mL Normal 5-80 [facility] Comment on above: Performed By: #### 2 306666, 09708335, 02797526, 3943715, 50560576, 77072245, 1802616 ####[facility] [address] [place] [address] CBC w/ Auto Diffon Erythrocyte distribution width (RBC) [Ratio] 12.7 % Normal 10.9-14.2 [facility] Comment on above: Performed By: #### 2 565088, 08905432, 47563026, 6901882, 37805794, 04358498, 4912237 ####[facility] [address] [place] [address] Hematocrit (Bld) [Volume fraction] 34.2 % Normal 34.0-46.0 [facility] Comment on above: Performed By: #### 2 115742, 32629194, 36648181, 7262253, 45474957, 32142128, 9282404 ####[address] [address] Hemoglobin (Bld) [Mass/Vol] 12.3 g/dL Normal 12.0-16.0 [facility] Comment on above: Performed By: #### 2 422887, 67399067, 39490625, 6295263, 29380244, 66294956, 0618893 ####[address] [address] MCH (RBC) [Entitic mass] 31.8 pg Normal 27.0-34.0 [facility] Comment on above: Performed By: #### 2 899208, 53316793, 39284592, 4161055, 61454777, 35104889, 0023519 ####[address] [address] MCHC (RBC) [Mass/Vol] 35.9 g/dL Normal 31.4-36.0 [facility] Comment on above: Performed By: #### 2 396131, 03169175, 58263079, 6397401, 83457469, 92857746, 9322325 ####[address] [address] MCV (RBC) [Entitic vol] 88.7 fL Normal 80.0-100.0 [facility] Comment on above: Performed By: #### 2 480152, 67309359, 53956328, 2254889, 47032221, 10760251, 4795573 ####[address] [address] Platelet mean volume (Bld) [Entitic vol] 9.8 fL Normal 6.4-10.8 [facility] Comment on above: Performed By: #### 2 202883, 33098045, 59341058, 1610327, 83497363, 39287594, 0637798 ####[address] [address] Platelets (Bld) [#/Vol] 215.0 E9/L Normal 150.0-500.0 [facility] Comment on above: Performed By: #### 2 862062, 45539600, 97809744, 8780996, 14972942, 20211201, 5664606 ####[facility] [address] [place] [address] RBC (Bld) [#/Vol] 3.9 E12/L Low 4.3-5.9 [facility] Comment on above: Performed By: #### 2 493019, 10194359, 15832371, 4200935, 31145729, 94592363, 8230473 ####[facility] [address] [place] [address] WBC corrected for nucl RBC Auto (Bld) [#/Vol] 10.9 E9/L Normal 4.0-11.0 [facility] Comment on above: Result Comment: Slid e reviewed by ts. Performed By: #### 2 248884, 86297561, 83574583, 3599979, 18555446, 52872286, 5369620 ####[facility] [address] [place] [address] CHEMISTRYOrdered By: SYSTEM SYSTEM on 09-05-2022 Anion gap [Moles/Vol] 10 mmol/L Normal 6 - 16 mEq/L [facility] Remisol Calcium [Mass/Vol] 8.8 mg/dL Low 8.9 [...] rate/Area] mL/min/1.73 m2 Normal >=59mL/min/ 1.73 m2 [facility] Chem S Glucose [Mass/Vol] 87 mg/dL Normal 55 - 199 mg/dL [facility] Remisol Potassium [Moles/Vol] 3.3 mmol/L Low 3.5 - 5.3 mmol/L [facility] Remisol Sodium [Moles/Vol] 131 mmol/L Low 135 - 145 mmol/L [facility] Remisol Troponin I.cardiac [Mass/Vol] 4.70 pg/mL Low 10.10 - 27.10 pg/mL [facility] Remisol Urea nitrogen [Mass/Vol] 7 mg/dL Normal 5 - 21 mg/dL [facility] Remisol Urea nitrogen/Creatinine [Mass ratio] 10 mg/mg Normal 10 - 20 [facility] Remisol CHEMISTRYOrdered By: Temi hayden on 09-05-2022 Natriuretic peptide B (Bld) [Mass/Vol] 8 pg/mL Normal 5 - 80 pg/mL [facility] HemeManSS COAGULATIONOrdered By: Yamile Li on 09-05-2022 aPTT Coag (PPP) [Time] 27.1 s Normal 25.1 - 36.5 second(s) [facility] Auto Coag INR Coag (PPP) [Relative time] 0.9 {INR} Invalid Interpretation Code [facility] Auto Coag PT Coag (PPP) [Time] 10.3 s Normal 9.4 - 1 2.5 second(s) [facility] Auto Coag Consent for Treatmenton 08-16 Consent for Treatment [id number]#1.00CD:12 7 Normal [facility] ED Note-Nursingon 09-05-2022 ED Note-Nursing Normal [facility] ED Note-Physicianon 09-05-20 ED Note-Physician Normal [facility] Comment on above: Result Comment: Elec tronically Signed By: Gopi Rodriguez DO\brandi\Date and Time Signed: 09/05/22 21:46 EST Group B Strep by PCRon 08-16 Group B Strep colonization by PCR Negative Normal Negative [facility] Comment on above: Performed By: #### 4 [id number] ####[facility] [address] [place] [address] HEMATOLOGYOrdered By: SYSTEM SYSTEM on 09-05-2022 Basophils/100 [...] reviewed by ts. MICRO OTHER TESTSOrdered By: Vlaerie Li on 09-05-2022 Rapid COV Int NEG [...] Coag (PPP) [Time] 27.1 second(s) Normal 25.1-36.5 [facility] Comment on above: Result Comment: Para [...] the same coagulation reagent and instrumentation as [facility]. Currently there are no coagulation studies available worldwide for children to 14 days, and no normal ranges. Heparin therapeutic range (represented by Anti-Factor Xa activity of 0.2 - 0.4 U/mL) corresponds to PTT of 56.6 - 109.0 sec. Performed By: #### 2 971666, 18191525, 28053038, 8756719, 06769672, 83432100, 8097617 ####[facility] [address] [place] [address] INR Coag (PPP) [Relative time] 0.9 {INR} Invalid Interpretation Code [facility] Comment on above: Result Comment: INR results are specifically intended to assess patients stabilized on long-term Anticoagulation therapy suggested INR?s ?Less Intensive Anticoagulation? 2.0 ? 3.0Conventional Range 3.0 ? 4.5 Performed By: #### 2 561347, 82737695, 15782617, 9150019, 33927799, 97507602, 2312100 ####[facility] [address] [place] [address] PT Coag (PPP) [Time] 10.3 second(s) Normal 9.4-12.5 [facility] Comment on above: Result Comment: 15 [...] the same coagulation reagent and instrumentation as [facility]. Currently there are no coagulation studies available worldwide for children to 14 days, and no normal ranges. Performed By: #### 2 020736, 58534705, 99102640, 7514197, 00741046, 02922052, 7234044 ####[facility] [address] [place] [address] Rapid COVID Antigen ([facility])on 09-05-2022 Rapid COV Int NEG Ctl Pass Normal [facility] Comment on above: Performed By: #### 2 [id number] ####[facility] [address] [place] [address] Rapid COV Int POS Ctl Pass Normal [facility] Comment on above: Performed By: #### 2 [id number] ####[address] [place] [address] SARS-CoV+SARS-CoV-2 (COVID-19) Ag IA.rapid Ql (Resp) Detected Abnormal Not Detected [facility] Comment on above: Result Comment: Resu lts Called To Berna Cook RN/ER By AGNIESZKA And Read Back For Confirmation On 09/05/2022 21:14:20 ESTResults Verified By Repeat AnalysisThe [employer]? System for Rapid Detection of SARS-CoV-2 is [...] or revoked sooner. Performed By: #### 2 [id number] ####[place] [address] ADMITTED TO INTENSIVE CARE UNIT FOR CONDITION OF INTEREST:FIND:PT: NO Normal [facility] Comment on above: Performed By: #### 2 [id number] ####[place] [address] EMPLOYED IN A HEALTHCARE SETTING:FIND:PT: NO Normal [facility] Comment on above: Performed By: #### 2 [id number] ####[place] [address] FIRST TEST FOR CONDITION OF INTEREST:FIND:PT: YES Normal [facility] Comment on above: Performed By: #### 2 [id number] ####[place] [address] HAS SYMPTOMS RELATED TO CONDITION OF INTEREST:FIND:PT: YES Normal [facility] Comment on above: Performed By: #### 2 [id number] ####[place] [address] HOSPITALIZED FOR CONDITION OF INTEREST:FIND:PT: NO Normal [facility] Comment on above: Performed By: #### 2 [id number] ####[place] [address] STATUS:FIND:PT: NO Normal [facility] Comment on above: Performed By: #### 2 [id number] ####[address] [address] RESIDES IN A CONGREGATE CARE SETTING:FIND:PT: NO Normal [facility] Comment on above: Performed By: #### 2 [id number] ####[address] [place] [address] Troponin 0 Hr.on 09-05-2022 Troponin I.cardiac [Mass/Vol] 4.70 pg/mL Low 10.10-27.10 [facility] Comment on above: Result Comment: The 95% CI (Confidence Interval) PPV (Positive Predictive Value) for myocardial infarction in females is 38 pg/mL, in males 51 pg/mL. The results should be used in conjunction with clinical conditions of myocardial infarction.(Access High Sensitivity Troponin I Instructions For Use, [employer], May 2018) Performed By: #### 2 495034, 24654961, 66705310, 1444767, 23145597, 62217500, 5320264 ####[address] [place] [address] eGFRon 09-05-2022 GFR/1.73 sq M.predicted among blacks MDRD (S/P/Bld) [Vol rate/Area] mL/min/{1.73_m2} Normal >=59 [facility] Comment on above: Order Comment: Order added by Discern Expert. Result Comment: eGFR is race adjusted. AA=. Performed By: #### 2 055586, 41994261, 66228061, 2145486, 72335312, 70823831, 0279208 ####[facility] [address] [place] [address] GFR/1.73 sq M.predicted among non-blacks MDRD (S/P/Bld) [Vol rate/Area] mL/min/{1.73_m2} Normal >=59 [facility] Comment on above: Order Comment: Order added by Discern Expert. Result Comment: [employer] kidney disease could be indicated at eGFR's of less than 60 mL/min/1.73m2. Kidney failure is indicated at less than 15 mL/min/1.73m2. Performed By: #### 2 114219, 65472913, 68915735, 5076236, 73382804, 14061609, 5879114 ####[address] [place] [address] Coding Summary.on 09-04-2022 Coding Summary. Normal [facility] Nursing Assessmenton 022 Nursing Assessment [id number]#1.00CD:1 27 Normal [facility] Physician Orderon 09-04-2022 Physician Order [id number]#1.00CD:1 Normal [facility] ABO/Rhon 08-31-2022 ABO/Rh Positive Invalid Interpretation Code [facility] Comment on above: Performed By: #### 1 7084709, 8004414, 64252142, 75540335 ####[address] [address] ABO/Rh History Checkon 08-31 ABO/Rh History Check Verified Hx Blood Type Normal [facility] Comment on above: Performed By: #### 1 8682141, 8381327, 27252083, 46151829 ####[address] [address] ABSCon 08-31-2022 ABSC Gel Interp Negative Normal [facility] Comment on above: Performed By: #### 1 5196491, 7730719, 33381550, 40569916 ####[address] [place] [address] BUNon 08-31-2022 Urea nitrogen [Mass/Vol] 8 mg/dL Normal 03-04 [facility] Comment on above: Performed By: #### 2 021334, 1520193, 47188484, 6696144, 67940501, 2178132, 9236729, 4908486, 5204221, 6367950, 63672467 ####[address] [address] Blood Bank ID#on 08-31-2022 BBID# [id number] Invalid Interpretation Code [facility] Comment on above: Performed By: #### 1 9090314, 1957034, 85919144, 22863003 ####[facility] [address] [place] [address] CBC w/Indiceson 08-31-2022 Erythrocyte distribution width (RBC) [Ratio] 12.9 % Normal 10.9-14.2 [facility] Comment on above: Performed By: #### 2 283197, 9774061, 78272968, 7393968, 17809197, 9821759, 5892683, 4946449, 5360327, 5882269, 08225444 ####[facility] [address] [place] [address] Hematocrit (Bld) [Volume fraction] 35.0 % Normal 34.0-46.0 [facility] Comment on above: Performed By: #### 2 141441, 8381178, 77194328, 3034371, 85097539, 8880288, 8664173, 3780454, 2624087, 0308968, 82278573 ####[facility] [address] [place] [address] Hemoglobin (Bld) [Mass/Vol] 12.0 g/dL Normal 12.0-16.0 [facility] Comment on above: Performed By: #### 2 510968, 9791371, 08690511, 4722536, 54050952, 2217153, 7543044, 5706567, 4085130, 6486397, 42266119 ####[facility] [address] [place] [address] MCH (RBC) [Entitic mass] 30.7 pg Normal 27.0-34.0 [facility] Comment on above: Performed By: #### 2 764658, 6400732, 39350612, 6235832, 68444433, 7404985, 7698063, 9484657, 3298569, 0509563, 57183130 ####[facility] [address] [place] [address] MCHC (RBC) [Mass/Vol] 34.4 g/dL Normal 31.4-36.0 [facility] Comment on above: Performed By: #### 2 035481, 9116816, 82228368, 7855630, 63383310, 8675872, 2920917, 3332895, 0898422, 3944007, 71499215 ####[facility] [address] [place] [address] MCV (RBC) [Entitic vol] 89.5 fL Normal 80.0-100.0 [facility] Comment on above: Performed By: #### 2 215875, 5563867, 49322756, 4713222, 55689750, 2034605, 2801371, 9880130, 0998568, 2477102, 54152374 ####[facility] [address] [place] [address] Platelet mean volume (Bld) [Entitic vol] 9.8 fL Normal 6.4-10.8 [facility] Comment on above: Performed By: #### 2 554002, 8504645, 86900565, 7488934, 59490737, 5165458, 0951240, 3085732, 9959940, 2054240, 36448217 ####[facility] [address] [place] [address] Platelets (Bld) [#/Vol] 234.0 E9/L Normal 150.0-500.0 [facility] Comment on above: Performed By: #### 2 112987, 7622872, 72378626, 7802619, 71656141, 0099440, 3678552, 1983039, 3117801, 2977012, 94842940 ####[facility] [address] [place] [address] RBC (Bld) [#/Vol] 3.9 E12/L Low 4.3-5.9 [facility] Comment on above: Performed By: #### 2 896777, 4748265, 58195688, 7265942, 52840398, 7205545, 7141751, 8709460, 7276266, 9344912, 72314366 ####[facility] [address] [place] [address] WBC corrected for nucl RBC Auto (Bld) [#/Vol] 12.6 E9/L High 4.0-11.0 [facility] Comment on above: Performed By: #### 2 180371, 5402159, 99604321, 4922189, 54225994, 3244587, 2188177, 0724387, 5602693, 4548630, 30008434 ####[address] [place] [address] Creatinineon 08-31-2022 Creatinine [Mass/Vol] 0.7 mg/dL Normal 0.5-1.3 [facility] Comment on above: Performed By: #### 2 806682, 8990305, 51342631, 0107375, 25643276, 7576310, 3697479, 3351760, 0987535, 9927870, 01356150 ####[address] [address] Discharge Instructionson Discharge Instructions [id number]#1.00CD:12 7 Normal [facility] Ethanolon 08-31-2022 Ethanol [Mass/Vol] mg/dL Normal <=7 [facility] Comment on above: Performed By: #### 2 587524 ####[address] [place] [address] FSPon 08-31-2022 Fibrin+Fibrinogen fragments (S) [Mass/Vol] <10 Normal <10 [facility] Comment on above: Performed By: #### 2 071146, 2887195, 11538487, 9581065, 99100887, 1183042, 5851595, 7542621, 1501976, 8961626, 92482732 ####[address] [place] [address] Stainon 08-31-2022 FMHV 0 mL Invalid Interpretation Code [facility] Comment on above: Performed By: #### 2 526209, 7385253, 93733146, 2270615, 14521557, 7047419, 1469401, 9293103, 2305515, 2537566, 69050701 ####[facility] [address] [place] [address] Negative Control Negative Normal [facility] Comment on above: Performed By: #### 2 683012, 0394281, 49094331, 1008221, 17130188, 8067232, 1581061, 8864728, 2752811, 8972821, 02962964 ####[facility] [address] [place] [address] Fibrinogenon 08-31-2022 Fibrinogen Coag (PPP) [Mass/Vol] 406 mg/dL High 200-393 [facility] Comment on above: Performed By: #### 2 120040, 8993296, 09084026, 9167247, 56664125, 0164443, 6675844, 6541335, 4396332, 1642407, 26642152 ####[facility] [address] [place] [address] Hep Func Panelon 08-31-2022 Bilirubin.indirect [Mass or moles/Vol] UTC Abnormal 0.1-0.9 [facility] Comment on above: Result Comment: Resu lt verified by Discern Rule. Performed result UTC (Unable to Calculate) was sent as an Alpha code due the inability to calculate a valid numeric value. Performed By: #### 2 041089, 3542484, 56147661, 3308428, 70441242, 0560167, 6677788, 2902665, 1659175, 8753270, 98527426 ####[facility] [address] [place] [address] Albumin [Mass/Vol] 2.8 g/dL Low 3.3-5.0 [facility] Comment on above: Performed By: #### 2 033940, 7632373, 37934465, 1546561, 57298355, 8027819, 8959989, 0010414, 2212465, 7908604, 84702658 ####[facility] [address] [place] [address] Albumin/Globulin (S) [Mass conc ratio] 0.7 Low 1.1-2.2 [facility] Comment on above: Performed By: #### 2 615849, 7903223, 16807477, 0492809, 99052467, 1300605, 1126215, 3471073, 0967436, 7400941, 89174838 ####[address] [place] [address] ALP [Catalytic activity/Vol] 80 Int._Unit/L Normal 21-98 [facility] Comment on above: Performed By: #### 2 174762, 9232405, 43801272, 7024967, 69589925, 1348546, 9692526, 0576899, 3276264, 2595335, 14835457 ####[address] [place] [address] ALT No additional P-5'-P [Catalytic activity/Vol] 10 Int._Unit/L Normal 6-46 [facility] Comment on above: Performed By: #### 2 570480, 9057034, 62645163, 9214558, 61449032, 0140742, 7572910, 8524115, 7302966, 4180245, 67056561 ####[facility] [address] [place] [address] AST [Catalytic activity/Vol] 16 Int._Unit/L Normal 5-43 [facility] Comment on above: Performed By: #### 2 234355, 9530161, 43505180, 5666760, 72345504, 8632272, 1004520, 6380577, 2294057, 0171977, 72315800 ####[address] [place] [address] Bilirubin [Mass/Vol] 0.1 mg/dL Normal 0.0-1.1 [facility] Comment on above: Performed By: #### 2 201240, 1779633, 50039090, 3268274, 61524632, 2786757, 8932061, 9925179, 9433441, 7440454, 53038559 ####[facility] [address] [place] [address] Bilirubin.direct [Mass/Vol] mg/dL Normal 0.1-0.4 [facility] Comment on above: Performed By: #### 2 076281, 5253093, 74531170, 6196955, 21896498, 1589126, 2433719, 0572409, 1129633, 4555332, 61112835 ####[facility] [address] [place] [address] Globulin (S) [Mass/Vol] 3.8 g/dL Normal 1.4-4.0 [facility] Comment on above: Performed By: #### 2 591244, 7982983, 71109566, 5348580, 36887407, 2664928, 9671672, 4337042, 8767190, 8276359, 50609489 ####[facility] [address] [place] [address] Protein [Mass/Vol] 6.6 g/dL Normal 6.0-7.8 [facility] Comment on above: Performed By: #### 2 677644, 4359901, 19103779, 1908897, 70834451, 5136927, 0971838, 1999800, 2652712, 3234550, 74227949 ####[facility] [address] [place] [address] Inpatient Clinical Summaryon 08-31-2022 Inpatient Clinical Summary Normal [facility] Inpatient Patient Summaryon 08-31-2022 Inpatient Patient Summary Normal [facility] Lyteson 08-31-2022 Anion gap [Moles/Vol] 13 mmol/L Normal 6-16 [facility] Comment on above: Performed By: #### 2 995684, 4463450, 61737088, 4767669, 72251130, 2682189, 9454703, 3673583, 7657823, 6210720, 29961135 ####[facility] [address] [place] [address] Chloride [Moles/Vol] 104 mmol/L Normal 101-111 [facility] Comment on above: Performed By: #### 2 261377, 0833996, 20241905, 7624382, 61727254, 3410733, 0560127, 0399092, 3581736, 0127579, 31154743 ####[facility] [address] [place] [address] CO2 [Moles/Vol] 22 mmol/L Normal 21-31 [facility] Comment on above: Performed By: #### 2 772888, 6361702, 26469138, 9877322, 90857730, 6006516, 8076916, 6013030, 6589817, 5763788, 93905024 ####[facility] [address] [place] [address] Potassium [Moles/Vol] 3.5 mmol/L Normal 3.5-5.3 [facility] Comment on above: Performed By: #### 2 979201, 0701432, 65677448, 5621764, 13870314, 0812373, 1562985, 4431405, 4339648, 8991731, 39153538 ####[facility] [address] [place] [address] Sodium [Moles/Vol] 135 mmol/L Normal 135-145 [facility] Comment on above: Performed By: #### 2 307874, 2884913, 57927567, 4621039, 99045954, 1492174, 5081470, 5728495, 6538715, 3113663, 74914763 ####[address] [place] [address] Nursing Assessmenton 022 Nursing Assessment [id number] [id number]#1.00CD:12 7 Normal [facility] PT & PTTon 08-31-2022 aPTT Coag (PPP) [Time] 26.3 second(s) Normal 25.1-36.5 [facility] Comment on above: Result Comment: Para [...] the same coagulation reagent and instrumentation as [facility]. Currently there are no coagulation studies available worldwide for children to 14 days, and no normal ranges. Heparin therapeutic range (represented by Anti-Factor Xa activity of 0.2 - 0.4 U/mL) corresponds to PTT of 56.6 - 109.0 sec. Performed By: #### 2 583243, 8101949, 12386312, 4574526, 44137569, 5087041, 7922063, 0723194, 5216643, 7352288, 74852346 ####[facility] [address] [place] [address] INR Coag (PPP) [Relative time] 0.9 {INR} Invalid Interpretation Code [facility] Comment on above: Result Comment: INR results are specifically intended to assess patients stabilized on long-term Anticoagulation therapy suggested INR?s ?Less Intensive Anticoagulation? 2.0 ? 3.0Conventional Range 3.0 ? 4.5 Performed By: #### 2 652238, 4613177, 15701094, 5813314, 57793993, 0192652, 0254386, 2465953, 6128867, 8937818, 84844530 ####[facility] [address] [place] [address] PT Coag (PPP) [Time] 10.2 second(s) Normal 9.4-12.5 [facility] Comment on above: Result Comment: 15 [...] the same coagulation reagent and instrumentation as [facility]. Currently there are no coagulation studies available worldwide for children to 14 days, and no normal ranges. Performed By: #### 2 832982, 2230139, 17090224, 2444893, 80061066, 3551200, 1546502, 1351363, 4529148, 6935941, 17452396 ####[facility] [address] [place] [address] U Drug Screenon 08-31-2022 Amphetamines Screen method >1000 ng/mL Ql (U) Negative Normal Negative [facility] Comment on above: Result Comment: Nega tive Cutoff: <1000 ng/mL Performed By: #### 2 559307, 33034146 ####[facility] [address] [place] [address] Barbiturates Screen Ql (U) Negative Normal Negative [facility] Comment on above: Result Comment: Nega tive Cutoff: <200 ng/mL Performed By: #### 2 156027, 03607401 ####[facility] [address] [place] [address] Benzodiazepines Ql (U) Negative Normal Negative [facility] Comment on above: Result Comment: Nega tive Cutoff: <200 ng/mL Performed By: #### 2 673041, 13040260 ####[facility] [address] [place] [address] Cocaine Ql (U) Negative Normal Negative [facility] Comment on above: Result Comment: Nega tive Cutoff: <300 ng/mL Performed By: #### 2 456234, 98908204 ####[facility] [address] [place] [address] Opiates Screen Ql (U) Negative Normal Negative [facility] Comment on above: Result Comment: Nega tive Cutoff: <300 ng/mL Performed By: #### 2 796690, 96525742 ####[facility] [address] [place] [address] Phencyclidine Screen method >25 ng/mL Ql (U) Negative Normal Negative [facility] Comment on above: Result Comment: Nega tive Cutoff: <25 ng/mLThese drug screen results are to be used for medical (i.e., treatment) purposes only. Unconfirmed drug screening results must not be used for non-medical purposes (e.g., employment testing, legal testing). Performed By: #### 2 272100, 15975941 ####[facility] [address] [place] [address] Tetrahydrocannabinol Screen method >50 ng/mL Ql (U) Negative Normal Negative [facility] Comment on above: Result Comment: Nega tive Cutoff: <50 ng/mL Performed By: #### 2 936537, 52063258 ####[facility] [address] [place] [address] UA With Cult Reflexon 2021 Bacteria LM Ql (Urine sed) TRACE Normal Trace [facility] Comment on above: Performed By: #### 2 050305, 11718594 ####[facility] [address] [place] [address] Bilirubin Ql (U) Negative Normal Negative [facility] Comment on above: Performed By: #### 2 412062, 21114773 ####[facility] [address] [place] [address] Clarity (U) CLEAR Normal Clear [facility] Comment on above: Performed By: #### 2 346317, 01735071 ####[facility] [address] [place] [address] Color (U) YELLOW Normal Yellow [facility] Comment on above: Performed By: #### 2 808024, 48015493 ####[facility] [address] [place] [address] Epithelial cells.squamous LM.HPF (Urine sed) [#/Area] 0-2 Normal 0-2 [facility] Comment on above: Performed By: #### 2 308636, 81584289 ####[facility] [address] [place] [address] Glucose Test strip (U) [Mass/Vol] Negative Normal Negative [facility] Comment on above: Performed By: #### 2 534411, 91815486 ####[facility] [address] [place] [address] Hemoglobin Ql (U) Negative Normal Negative [facility] Comment on above: Performed By: #### 2 169532, 09587567 ####[facility] [address] [place] [address] Ketones (U) [Mass/Vol] Negative Normal Negative [facility] Comment on above: Performed By: #### 2 606519, 75766159 ####[facility] [address] [place] [address] Ramsay.plasma/Ramsay .RBC (Bld) [Mass ratio] 0-3 Normal 0-3 [facility] Comment on above: Performed By: #### 2 996879, 51177995 ####[facility] [address] [place] [address] Nitrite Ql (U) Negative Normal Negative [facility] Comment on above: Performed By: #### 2 746608, 97195864 ####[facility] [address] [place] [address] pH (U) 6.0 [pH] Invalid Interpretation Code 5.0-9.0 [facility] Comment on above: Performed By: #### 2 712690, 36475110 ####[facility] [address] [place] [address] Protein (U) [Mass/Vol] Negative Normal Negative [facility] Comment on above: Performed By: #### 2 101512, 24332299 ####[address] [address] Specific gravity (U) [Rel density] 1.010 Invalid Interpretation Code 1.005-1.030 [facility] Comment on above: Performed By: #### 2 050370, 76253969 ####[place] [address] Type of Urine collection method Clean Catch Normal [facility] Comment on above: Performed By: #### 2 990934, 35022186 ####[place] [address] Urobilinogen Qn (U) 0.2 {Roal'U}/dL Normal 0.0-1.0 [facility] Comment on above: Performed By: #### 2 897360, 89381466 ####[place] [address] WBC Auto Ql (U) Negative Normal Negative [facility] Comment on above: Performed By: #### 2 874948, 40659380 ####[place] [address] WBC LM.HPF (Urine sed) [#/Area] 0-5 Normal 0-5 [facility] Comment on above: Performed By: #### 2 856151, 41008918 ####[address] [address] Uric Acidon 08-31-2022 Urate [Mass/Vol] 5.0 mg/dL Normal 2.2-7.4 [facility] Comment on above: Performed By: #### 2 168114, 5363740, 05424603, 1349589, 95057489, 8336454, 1002283, 4758957, 1431120, 2514170, 89062684 ####[facility] [address] [place] [address] eGFRon 08-31-2022 GFR/1.73 sq M.predicted among blacks MDRD (S/P/Bld) [Vol rate/Area] mL/min/{1.73_m2} Normal >=59 [facility] Comment on above: Order Comment: Order added by Discern Expert. Result Comment: eGFR is race adjusted. AA=. Performed By: #### 2 803602, 1899653, 67334272, 2066748, 57930258, 5051230, 0206743, 2278290, 6049374, 8135240, 08553235 ####[facility] [address] [place] [address] GFR/1.73 sq M.predicted among non-blacks MDRD (S/P/Bld) [Vol rate/Area] mL/min/{1.73_m2} Normal >=59 [facility] Comment on above: Order Comment: Order added by Discern Expert. Result Comment: [employer] lucy kidney disease could be indicated at eGFR's of less than 60 mL/min/1.73m2. Kidney failure is indicated at less than 15 mL/min/1.73m2. Performed By: #### 2 660148, 4346536, 58816695, 0402177, 69282664, 8281151, 1489132, 6182928, 8664880, 6006089, 81646024 ####[facility] [address] [place] [address] BLOOD BANKOrdered By: Naldo Li on 08-30-2022 ABO/Rh Interp Positive Invalid Interpretation Code FT BB Subsection ABSC Gel Interp Negative (08/30/22 11:51 PM) Normal FT BB Subsection FMHV 0 mL Invalid Interpretation Code [facility] Man Sero CHEMISTRYOrdered By: SYSTEM SYSTEM on [...] Consent for Treatmenton 08-15 Consent for Treatment [id number]#1.00CD:12 7 Normal [facility] HEMATOLOGYOrdered By: Naldo Li on 08-30-2022 [...] PM) Normal Negative [facility] UA Auto SS Ramsay.plasma/Ramsay .RBC (Bld) [Mass ratio] 0-3 /HPF Normal [...] [facility] UA Auto SS Urobilinogen Qn (U) 0.7106284 {Rola'U}/dL Normal 0.0 - 1.0 EU/dL [facility] UA Auto SS WBC Auto Ql (U) Negative (08/30/22 9:45 PM) Normal Negative [facility] UA Auto SS WBC LM.HPF (Urine sed) [#/Area] 0-5 /HPF Normal 0-5/HPF [facility] UA Auto SS Coding Summary.on 08-28-2022 Coding Summary. Normal [facility] BLOOD BANKOrdered By: Janet Reyes on 08-22-2022 ABO/Rh Interp Positive Invalid Interpretation Code FT BB Subsection ABSC Gel Interp Negative (08/22/22 4:03 PM) Normal [facility] BB Subsection FMHV 0 mL Invalid Interpretation Code [facility] Man Sero CHEMISTRYOrdered By: SYSTEM SYSTEM on [...] rate/Area] mL/min/1.73 m2 Normal >=59mL/min/ 1.73 m2 [facility] Chem S GFR/1.73 sq M.predicted among non-blacks MDRD (S/P/Bld) [Vol rate/Area] mL/min/1.73 m2 Normal >=59mL/min/ 1.73 m2 [facility] Chem S Globulin (S) [Mass/Vol] 3.7 g/dL [...] PM) Normal Negative [facility] UA Auto SS Ramsay.plasma/Ramsay .RBC (Bld) [Mass ratio] 0-3 /HPF Normal [...] [facility] UA Auto SS Urobilinogen Qn (U) 0.2001644 {Rola'U}/dL Normal 0.0 - 1.0 EU/dL [facility] [...] AM) Normal Negative [facility] UA Auto SS Ramsay.plasma/Ramsay .RBC (Bld) [Mass ratio] 0-3 /HPF Normal [...] Desc Clean Catch (08/18/22 4:08 AM) Normal [facility] UA Auto SS Urobilinogen Qn (U) 0.6224390 {Rola'U}/dL Normal 0.0 - 1.0 EU/dL [facility] UA Auto SS WBC Auto Ql (U) 2+ *ABN* (08/18/22 4:08 AM) Invalid Interpretation Code Negative [facility] UA Auto SS WBC LM.HPF (Urine sed) [#/Area] 6-15 /HPF Invalid Interpretation Code 0-5/HPF [facility] UA Auto SS BLOOD BANKOrdered By: Tom Avelar on 08-13-2022 ABO/Rh Interp Positive Invalid Interpretation Code [facility] BB Subsection ABSC Gel Interp Negative (08/13/22 6:26 PM) Normal [facility] BB Subsection FMHV 0 mL Invalid Interpretation Code [facility] Man Sero CHEMISTRYOrdered By: SYSTEM SYSTEM on [...] Interpretation Code Negative [facility] UA Auto SS Ramsay.plasma/Ramsay .RBC (Bld) [Mass ratio] 0-3 /HPF Normal [...] [facility] UA Auto SS Urobilinogen Qn (U) 0.5411264 {Rola'U}/dL Normal 0.0 - 1.0 EU/dL [facility] [...] AM) Normal Negative [facility] UA Auto SS Ramsay.plasma/Ramsay .RBC (Bld) [Mass ratio] 0-3 /HPF Normal [...] [facility] UA Auto SS Urobilinogen Qn (U) 0.5634174 {Rola'U}/dL Normal 0.0 - 1.0 EU/dL [facility] [...] [Mass/Vol] Negative (07/17/22 9:25 AM) Normal Negative [facility] UA Auto SS Hemoglobin Ql (U) Negative (07/17/22 9:25 AM) Normal Negative [facility] UA Auto SS Ketones (U) [Mass/Vol] Negative (07/17/22 9:25 AM) Normal Negative [facility] UA Auto SS Ramsay.plasma/Ramsay .RBC (Bld) [Mass ratio] 0-3 /HPF Normal 0-3/HPF [facility] UA Auto SS Nitrite Ql (U) Negative (07/17/22 9:25 AM) Normal Negative [facility] UA Auto SS pH (U) 7.0 *NA* (07/17/22 9:25 AM) Invalid Interpretation Code 5.0 - 9.0 [facility] UA Auto SS Protein (U) [Mass/Vol] Negative (07/17/22 9:25 AM) Normal Negative [facility] UA Auto SS Specific gravity (U) [Rel density] <=1.005 *NA* (07/17/22 9:25 AM) Invalid Interpretation Code 1.005 - 1.030 [facility] UA Auto SS UA Spec Desc Clean Catch (07/17/22 9:25 AM) Normal [facility] UA Auto SS Urobilinogen Qn (U) 0.0401251 {Rola'U}/dL Normal 0.0 - 1.0 EU/dL [facility] UA Auto SS WBC Auto Ql (U) Negative (07/17/22 9:25 AM) Normal Negative [facility] UA Auto SS WBC LM.HPF (Urine sed) [#/Area] 0-5 /HPF Normal 0-5/HPF [facility] UA Auto SS CHEMISTRYOrdered By: SYSTEM SYSTEM on 06-28-2022 Glucose 1 Hr post 50 g glucose PO [Mass/Vol] 93 mg/dL Normal 55 - 140 mg/dL [facility] Remisol HEMATOLOGYOrdered By: Keila Ring on 06-28-2022 Hematocrit (Bld) [Volume fraction] 35.4 % Normal 34.0 - 46.0 % [facility] HemeAutoSS Hemoglobin (Bld) [Mass/Vol] 12.1 g/dL Normal 12.0 - 16.0 gm/dL [facility] HemeAutoSS BLOOD BANKOrdered By: Jeanette Castle on 06-19-2022 ABO/Rh Interp Positive Invalid Interpretation Code [facility] BB Subsection ABSC Gel Interp Negative (06/19/22 12:15 AM) Normal [facility] BB Subsection FMHV 0 mL Invalid Interpretation Code [facility] Man Sero CHEMISTRYOrdered By: SYSTEM SYSTEM on [...] PM) Normal Negative [facility] UA Auto SS Ramsay.plasma/Ramsay .RBC (Bld) [Mass ratio] 0-3 /HPF Normal [...] [facility] UA Auto SS Urobilinogen Qn (U) 0.3334603 {Rola'U}/dL Normal 0.0 - 1.0 EU/dL [facility] [...] PM) Normal Negative [facility] UA Auto SS Ramsay.plasma/Ramsay .RBC (Bld) [Mass ratio] 0-3 /HPF Normal 0-3/HPF [facility] UA Auto SS Mucus Ql (Urine sed) Trace (05/01/22 5:20 PM) Normal [facility] UA Auto SS Nitrite Ql (U) Negative (05/01/22 5:20 PM) Normal Negative [facility] UA Auto SS pH (U) 5.5 *NA* (05/01/22 5:20 PM) Invalid Interpretation Code 5.0 - 9.0 [facility] UA Auto SS Protein (U) [Mass/Vol] Trace *ABN* (05/01/22 5:20 PM) Invalid Interpretation Code Negative [facility] UA Auto SS Specific gravity (U) [Rel density] >=1.030 *NA* (05/01/22 5:20 PM) Invalid Interpretation Code 1.005 - 1.030 [facility] UA Auto SS UA Spec Desc Random Urine (05/01/22 5:20 PM) Normal [facility] UA Auto SS Urobilinogen Qn (U) 1.5516963 {Rola'U}/dL Normal 0.0 - 1.0 EU/dL [facility] UA Auto SS WBC Auto Ql (U) Negative (05/01/22 5:20 PM) Normal Negative [facility] UA Auto SS WBC LM.HPF (Urine sed) [#/Area] 0-5 /HPF Normal 0-5/HPF [facility] UA Auto SS BLOOD BANKOrdered By: Shayy Medina on 04-02-2022 ABO/Rh Interp Positive Invalid Interpretation Code [facility] BB Subsection ABSC Gel Interp Negative (04/02/22 7:17 AM) Normal [facility] BB Subsection FMHV 0 mL Invalid Interpretation Code [facility] Man Sero CHEMISTRYOrdered By: SYSTEM SYSTEM on [...] AM) Normal Negative [facility] UA Auto SS Ramsay.plasma/Ramsay .RBC (Bld) [Mass ratio] 0-3 /HPF Normal [...] Desc Random Urine (04/02/22 6:05 AM) Normal [facility] UA Auto SS Urobilinogen Qn (U) 0.8028608 {Rola'U}/dL Normal 0.0 - 1.0 EU/dL FT [...] PM) Normal Negative [facility] UA Auto SS Ramsay.plasma/Ramsay .RBC (Bld) [Mass ratio] 0-3 /HPF Normal [...] [facility] UA Auto SS Urobilinogen Qn (U) 0.8367347 {Rola'U}/dL Normal 0.0 - 1.0 EU/dL [facility] [...] By: Stephanie Diana on 02-15-2022 Test Code 757364 Invalid Interpretation Code [facility] SendOutsSS Test Name IG PAP CTNG HPV Invalid Interpretation Code [facility] SendOutsSS [place] 05-05-2021 CNPN Telephone (GSTCON) ----- SUSAN BRO ([id number]) 1995 F Date Time Provider Department 05/05/21 MARTHA WEBB During your visit today, we recorded the following information about you: Tucker Amairani Director Speech And Hearing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 Marketing Specialist: PSCB Transcribe Date/Time: Jul 23 2017 1:42P Dictated by : LUIS CARLOS PALM MD This examination was interpreted and the report reviewed and electronically signed by: LUIS CARLOS PALM MD on Jul 23 2017 1:43PM ESTXR SHOULDER GENERAL 3V OR MORE AP/TRUE AP/OTHER LT Final Result IMPRESSION: No acute/significant pathology detected. 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 My fair findings include:History Involved in [...] 4:34 PMCarl Dario Torres MD07/23/17 1636 [facility] MRI CERVICAL SPINE WO IVCONo n [...] MCCLURE MD on Jul 23 2017 3:41PM [id number] [facility] PROGRESSon 07-23-2017 PROGRESS HNO ID: [id number] thor: Anna Lawler RtService: (none)Author Type: (none)Type: [...] (R) (CT)(MR)July 23, 2017 3:09 PM [facility] PROGRESS HNO ID: [id number] thor: Shayy Ramires RtService: (none)Author Type: (none)Type: Progress NotesFiled: 07/23/2017 1:36 PMNote Text: Radiology Service Progress NotePATIENT NAME: Susan HogueMRN: [id number] OF SERVICE: July 23, 2017TIME: 1:36 PMPATIENT IDENTITY VERIFICATION COMPLETED USING TWO (2) METHODS: Patientconfirmed name verbally and Date of .PATIENT GENDER DATA: Female. status: : NoBreastfeeding status: NO.PATIENT RELEVANT IMPLANT DATA REVIEWED: YesRADIOLOGY DEPARTMENT: CT; Exam(s) Completed: SpinePERIPHERAL IV DATA: Not applicableSIGNED BY: Shayy Ramires RtOctober 2016 1:36 PM [facility] PROGRESS HNO ID: [id number] thor: Romelia (Gi Chairez: (none)Author Type: TechnicianType: Progress NotesFiled: 07/23/2017 1:32 PMNote Text: Radiology Service Progress NotePATIENT NAME: Susan HogueMRN: [id number] OF SERVICE: July 23, 2017TIME: 1:32 PMPATIENT [...] Romelia Green RTOctober 2016 1:32 PM [facility] XR HIP 3V PELV+ AP/LAT LTon [...] soft tissues are unremarkable.IMPRESSION:N o acute/significant pathology detected.Strategic Marketing Specialist : [employer] Transcribe Date/Time: Jul 23 2017 1:42PDictated by : Armando CHARLES examination was interpreted and the report reviewed and electronically signed by: LUIS CARLOS PLAM MD on Jul 23 2017 1:43PM [id number] [facility] XR KNEE 2V AP/LAT LTon 07-23 [...] soft tissues are unremarkable.IMPRESSION:N o acute/significant pathology detected.Strategic Marketing Specialist : [facility] Transcribe Date/Time: Jul 23 2017 1:44PDictated by : Armando CHARLES examination was interpreted and the report reviewed and electronically signed by: LUIS CARLOS PALM MD on Jul 23 2017 1:45PM [id number] [facility] XR KNEE 2V AP/LAT RTon 07-23 [...] soft tissues are unremarkable.IMPRESSION:N o acute/significant pathology detected.Strategic Marketing Specialist : [employer] Transcribe Date/Time: Jul 23 2017 1:44PDictated by : Armando CHARLES examination was interpreted and the report reviewed and electronically signed by: LUIS CARLOS PALM MD on Jul 23 2017 1:45PM [id number] [facility] XR SHLDR >/=3V AP/IMER AP/OTH R [...] soft tissues are unremarkable.IMPRESSION:N o acute/significant pathology detected.Strategic Marketing Specialist : [employer] Transcribe Date/Time: Jul 23 2017 1:41PDictated by : Armando CHARLES examination was interpreted and the report reviewed and electronically signed by: LUIS CARLOS PALM MD on Jul 23 2017 1:42PM [id number] [facility] Vital Signs Date Time Vital Sign Value Performing Clinician Facility 11-04-2023 08:13-0500 Blood Pressure Location Rashaun PURVIS [facility] 11-04-2023 08:13-0500 Body temperature 98.06 [degF] Rashaun PURVIS [facility] 11-04-2023 08:13-0500 Diastolic blood pressure 68 mm[Hg] Rashaun PURVIS [facility] 11-04-2023 08:13-0500 Heart rate 77 /min Rashaunleoncio PURVIS [facility] 11-04-2023 08:13-0500 Mean blood pressure 81 mm[Hg] Rashaun YANIV [facility] 11-04-2023 08:13-0500 SaO2% (BldA) [Mass fraction] 99 % Rashanu YANIV [facility] 11-04-2023 08:13-0500 Systolic blood pressure 106 mm[Hg] Rashaun YANIV [facility] 11-04-2023 08:00-0500 Hourly Rounding Rashaun YANIV [facility] 11-04-2023 08:00-0500 Promise to Return Rashaun YANIV [facility] 08-18-2023 07:30-0400 Body temperature 98.24 [degF] Julia Nataprawira [facility] 08-18-2023 07:30-0400 Diastolic blood pressure 67 mm[Hg] Julia Nataprawira [facility] 08-18-2023 07:30-0400 Heart rate 95 /min Julia Nataprawira [facility] 08-18-2023 07:30-0400 Hourly Rounding Julia Nataprawira [facility] 08-18-2023 07:30-0400 Mean blood pressure 89 mm[Hg] Julia Nataprawira [facility] 08-18-2023 07:30-0400 Respiratory rate 16 /min Julia Nataprawira [facility] 08-18-2023 07:30-0400 Systolic blood pressure 133 mm[Hg] Julia Nataprawira [facility] 07-25-2023 08:17-0400 Body temperature 97.7 [degF] Kristian Eagle [facility] 07-25-2023 08:17-0400 Diastolic blood pressure 65 mm[Hg] Kristian Guillermo [facility] 07-25-2023 08:17-0400 Heart rate 73 /min Kristian Guillermo [facility] 07-25-2023 08:17-0400 Respiratory rate 16 /min Kristian Guillermo [facility] 07-25-2023 08:17-0400 SaO2% (BldA) [Mass fraction] 100 % Kristian Guillermo [facility] 07-25-2023 08:17-0400 Systolic blood pressure 119 mm[Hg] Kristian Guillermo [facility] 06-28-2023 10:34-0400 Blood Pressure Location Roverto Spasic [facility] 06-28-2023 10:34-0400 Body temperature 98.24 [degF] Roverto Spasic [facility] 06-28-2023 10:34-0400 Diastolic blood pressure 78 mm[Hg] Roverto Spasic [facility] 06-28-2023 10:34-0400 Heart rate 81 /min Roverto Spasic [facility] 06-28-2023 10:34-0400 SaO2% (BldA) [Mass fraction] 99 % Roverto Spasic [facility] 06-28-2023 10:34-0400 Systolic blood pressure 119 mm[Hg] Roverto Spasic [facility] 06-14-2023 08:37-0400 Body temperature 98.6 [degF] Kristian Guillermo [facility] 06-14-2023 08:37-0400 Diastolic blood pressure 70 mm[Hg] Kristian Eagle [facility] 06-14-2023 08:37-0400 Heart rate 69 /min Kristian Guillermo [facility] 06-14-2023 08:37-0400 Respiratory rate 18 /min Kristian Guillermo [facility] 06-14-2023 08:37-0400 SaO2% (BldA) [Mass fraction] 100 % Kristian Guillermo [facility] 06-14-2023 08:37-0400 Systolic blood pressure 110 mm[Hg] Kristian Guillermo [facility] 05-21-2023 23:00-0400 Diastolic blood pressure 64 mm[Hg] Kaylinn Dokken [facility] 05-21-2023 23:00-0400 Heart rate 64 /min Kaylinn Dokken [facility] 05-21-2023 23:00-0400 Mean blood pressure 77 mm[Hg] Kaylinn Dokken [facility] 05-21-2023 23:00-0400 Respiratory rate 18 /min Kaylinn Dokken [facility] 05-21-2023 23:00-0400 Systolic blood pressure 102 mm[Hg] Kaylinn Dokken [facility] 05-21-2023 21:50-0400 Hourly Rounding Kaylinn Dokken [facility] 08-07-2023 21:30-0400 Diastolic blood pressure 53 mm[Hg] Kaylinn Dokken [facility] 05-21-2023 21:30-0400 Heart rate 72 /min Kaylinn Dokken [facility] 05-21-2023 21:30-0400 Respiratory rate 19 /min Kaylinn Dokken [facility] 05-21-2023 21:30-0400 SaO2% (BldA) [Mass fraction] 100 % Kaylinn Dokken [facility] 05-21-2023 21:30-0400 Systolic blood pressure 91 mm[Hg] Kaylinn Dokken [facility] 05-21-2023 20:38-0400 Body temperature 98.42 [degF] Kaylinn Dokken [facility] 05-21-2023 20:38-0400 Diastolic blood pressure 73 mm[Hg] Kaylinn Dokken [facility] 05-21-2023 20:38-0400 Heart rate 60 /min Kaylinn Dokken [facility] 05-21-2023 20:38-0400 Respiratory rate 20 /min Kaylinn Dokken [facility] 05-21-2023 20:38-0400 Systolic blood pressure 109 mm[Hg] Kaylinn Dokken [facility] 04-26-2023 11:10-0400 Diastolic blood pressure 74 mm[Hg] [facility] 04-26-2023 11:10-0400 Heart rate 65 /min [facility] 04-26-2023 11:10-0400 Respiratory rate 14 /min [facility] 04-26-2023 11:10-0400 SaO2% (BldA) [Mass fraction] 100 % [facility] 04-26-2023 11:10-0400 Systolic blood pressure 108 mm[Hg] [facility] 04-26-2023 09:00-0400 Body temperature 98.24 [degF] [facility] 04-26-2023 09:00-0400 Diastolic blood pressure 72 mm[Hg] [facility] 04-26-2023 09:00-0400 Heart rate 80 /min [facility] 04-26-2023 09:00-0400 Mean blood pressure 85 mm[Hg] [facility] 04-26-2023 09:00-0400 Respiratory rate 18 /min [facility] 04-26-2023 09:00-0400 Systolic blood pressure 110 mm[Hg] [facility] 01-31-2023 11:43-0400 Diastolic blood pressure 67 mm[Hg] Kristian Guillermo [facility] 01-31-2023 11:43-0400 Heart rate 68 /min Kristian Guillermo [facility] 01-31-2023 11:43-0400 Mean blood pressure 79 mm[Hg] Kristian Guillermo [facility] 01-31-2023 11:43-0400 Respiratory rate 16 /min Kristian Guillermo [facility] 01-31-2023 11:43-0400 SaO2% (BldA) [Mass fraction] 100 % Kristian Guillermo [facility] 01-31-2023 11:43-0400 Systolic blood pressure 103 mm[Hg] Kristian Guillermo [facility] 01-31-2023 11:03-0400 Diastolic blood pressure 73 mm[Hg] Kristian Eagle [facility] 01-31-2023 11:03-0400 Heart rate 71 /min Kristian Eagle [facility] 01-31-2023 11:03-0400 Mean blood pressure 81 mm[Hg] Kristian Eagle [facility] 01-31-2023 11:03-0400 Respiratory rate 12 /min Kristian Eagle [facility] 01-31-2023 11:03-0400 SaO2% (BldA) [Mass fraction] 100 % Kristian Eagle [facility] 01-31-2023 11:03-0400 Systolic blood pressure 98 mm[Hg] Kristian Eagle [facility] 01-31-2023 10:29-0400 Diastolic blood pressure 77 mm[Hg] Kristian Eagle [facility] 01-31-2023 10:29-0400 Heart rate 87 /min Kristian Eagle [facility] 01-31-2023 10:29-0400 Respiratory rate 21 /min Kristian Eagle [facility] 01-31-2023 10:29-0400 SaO2% (BldA) [Mass fraction] 99 % Kristian Eagle [facility] 01-31-2023 10:29-0400 Systolic blood pressure 101 mm[Hg] Kristian Guillermo [facility] 01-31-2023 09:51-0400 gluc 100 mg/dL Kristian Guillermo [facility] 01-31-2023 09:51-0400 gluc Kristian Guillermo [facility] 01-31-2023 09:43-0400 Body temperature 98.42 [degF] Kristian Guillermo [facility] 01-31-2023 09:43-0400 Heart rate 75 /min Kristian Guillermo [facility] 01-31-2023 09:43-0400 Respiratory rate 18 /min Kristian Guillermo [facility] 09-22-2022 15:14-0500 Body temperature 98.24 [degF] Luis Carlos Jung [facility] 09-22-2022 15:14-0500 Diastolic blood pressure 84 mm[Hg] Luis Carlos Jung [facility] 09-22-2022 15:14-0500 Heart rate 76 /min Luis Carlos Jung [facility] 09-22-2022 15:14-0500 Mean blood pressure 97 mm[Hg] Luis Carlos Jung [facility] 09-22-2022 15:14-0500 Respiratory rate 20 /min Luis Carlos Jung [facility] 09-22-2022 15:14-0500 Systolic blood pressure 124 mm[Hg] Luis Carlos Jung [facility] 09-22-2022 15:00-0500 Blood Pressure Location Luis Carlos Jung [facility] 09-20-2022 17:15-0500 Hourly Rounding Luis Carlos Jung [facility] Comment on above: Result Comment: discharge instructions g iven with verbal understanding. monitors off; pt up to dress. 09-20-2022 16:15-0500 Diastolic blood pressure 77 mm[Hg] Luis Carlos Jung [facility] 12-07-2022 16:15-0500 Heart rate 78 /min Luis Carlos Fabiana [facility] 09-20-2022 16:15-0500 Mean blood pressure 92 mm[Hg] Luis Carlos Fabiana [facility] 09-20-2022 16:15-0500 Respiratory rate 18 /min Luis Carlos Fabiana [facility] 09-20-2022 16:15-0500 Systolic blood pressure 121 mm[Hg] Luis Carlos Fabiana [facility] 09-20-2022 13:16-0500 Diastolic blood pressure 80 mm[Hg] Luis Carlos Fabiana [facility] 09-20-2022 13:16-0500 Heart rate 80 /min Luis Carlos Fabiana [facility] 09-20-2022 13:16-0500 Mean blood pressure 93 mm[Hg] Luis Carlos Fabiana [facility] 09-20-2022 13:16-0500 Respiratory rate 18 /min Luis Carlos Fabiana [facility] 09-20-2022 13:16-0500 Systolic blood pressure 120 mm[Hg] Luis Carlos Fabiana [facility] 09-20-2022 09:48-0500 Diastolic blood pressure 79 mm[Hg] Luis Carlos Fabiana [facility] 09-20-2022 09:48-0500 Heart rate 94 /min Luis Carlos Fabiana [facility] 09-20-2022 09:48-0500 Hourly Rounding Luis Carlos Montesinosten [facility] 09-20-2022 09:48-0500 Mean blood pressure 97 mm[Hg] Luis Carlos Fabiana [facility] 09-20-2022 09:48-0500 Respiratory rate 18 /min Luis Carlos Jung [facility] 09-20-2022 09:48-0500 Systolic blood pressure 132 mm[Hg] Luis Carlos Jung [facility] 09-19-2022 03:38-0500 Hourly Rounding Jj KARASIK [facility] Comment on above: Result Comment: pt walks off unit with a steady gait 09-19-2022 02:45-0500 Blood Pressure Location Jj KARASIK [facility] 09-19-2022 02:45-0500 Body temperature 98.42 [degF] Jj KARASIK [facility] 09-19-2022 02:45-0500 Diastolic blood pressure 77 mm[Hg] Jj KARASIK [facility] 09-19-2022 02:45-0500 Heart rate 62 /min Jj KARASIK [facility] 09-19-2022 02:45-0500 Hourly Rounding Jj KARASIK [facility] Comment on above: Result Comment: questions answered, guillaume monk 09-19-2022 02:45-0500 Mean blood pressure 91 mm[Hg] Jj KARASIK [facility] 09-19-2022 02:45-0500 Respiratory rate 18 /min Jj KARASIK [facility] 09-19-2022 02:45-0500 Systolic blood pressure 120 mm[Hg] Jj KARASIK [facility] 09-19-2022 01:45-0500 Blood Pressure Location Jj KARASIK [facility] 09-19-2022 01:45-0500 Body temperature 98.06 [degF] Jj KARASIK [facility] 09-19-2022 01:45-0500 Diastolic blood pressure 84 mm[Hg] Jj MIKE [facility] 09-19-2022 01:45-0500 Heart rate 70 /min Jj MIKE [facility] 09-19-2022 01:45-0500 Hourly Rounding Jj MIKE [facility] Comment on above: Result Comment: pt brought to unit via w heelchair. Changes into gown independently and provides urine sample. Pt demonstrates ability to use call light. Needs met, call light in reach 09-19-2022 01:45-0500 Mean blood pressure 96 mm[Hg] Jj MIKE [facility] 09-19-2022 01:45-0500 Respiratory rate 18 /min Jj MIKE [facility] 09-19-2022 01:45-0500 Systolic blood pressure 120 mm[Hg] Jj MIKE [facility] 09-14-2022 12:15-0500 Hourly Rounding Luis Carlos Jung [facility] Comment on above: Result Comment: reviewed plan for disch and use of meds to treat head ache 09-14-2022 11:45-0500 Hourly Rounding Luis Carlos Fabiana [facility] Comment on above: Result Comment: STATES SHE FEELS MUCH BE TTER AND WANTS TO GO HOME 09-14-2022 11:15-0500 Diastolic blood pressure 73 mm[Hg] Luis Carlos Jung [facility] 09-14-2022 11:15-0500 Heart rate 74 /min Luis Carlos Jung [facility] 09-14-2022 11:15-0500 Hourly Rounding Luis Carlos Jung [facility] 09-14-2022 11:15-0500 Mean blood pressure 88 mm[Hg] Luis Carlos Jung [facility] 09-14-2022 11:15-0500 Systolic blood pressure 119 mm[Hg] Luis Carlos Jung [facility] 09-14-2022 11:00-0500 Diastolic blood pressure 66 mm[Hg] Luis Carlos Jung [facility] 09-14-2022 11:00-0500 Heart rate 67 /min Luis Carlos Jung [facility] 09-14-2022 11:00-0500 Mean blood pressure 84 mm[Hg] Luis Carlos Jung [facility] 09-14-2022 11:00-0500 Systolic blood pressure 120 mm[Hg] Luis Carlos Jung [facility] 09-14-2022 10:45-0500 Diastolic blood pressure 72 mm[Hg] Luis Carlos Jung [facility] 09-14-2022 10:45-0500 Heart rate 75 /min Luis Carlos Jung [facility] 09-14-2022 10:45-0500 Mean blood pressure 90 mm[Hg] Luis Carlos Jung [facility] 09-14-2022 10:45-0500 Systolic blood pressure 125 mm[Hg] Luis Carlos Montesinosten [facility] 09-14-2022 09:30-0500 Blood Pressure Location Luis Carlos Jung [facility] 09-14-2022 09:30-0500 Body temperature 98.06 [degF] Luis Carlos Jung [facility] 09-14-2022 09:30-0500 Respiratory rate 16 /min Luis Carlos Jung [facility] 09-12-2022 20:45-0500 Hourly Rounding Luis Carlos Jung [facility] Comment on above: Result Comment: dischage instructions gi merly, pt verbalizes understanding. pt ambulates off unit with steady gait 09-12-2022 20:00-0500 Blood Pressure Location Luis Carlos Jung [facility] 09-12-2022 20:00-0500 Diastolic blood pressure 79 mm[Hg] Luis Carlos Jung [facility] 09-12-2022 20:00-0500 Heart rate 84 /min Luis Carlos Jung [facility] 09-12-2022 20:00-0500 Hourly Rounding Luis Carlos Jung [facility] 09-12-2022 20:00-0500 Mean blood pressure 95 mm[Hg] Luis Carlos Jung [facility] 09-12-2022 20:00-0500 Respiratory rate 18 /min Luis Carlos Jung [facility] 09-12-2022 20:00-0500 Systolic blood pressure 128 mm[Hg] Luis Carlos Jung [facility] 09-12-2022 19:45-0500 Hourly Rounding Luis Carlos Jung [facility] Comment on above: Result Comment: pt arrives to unit in wh eelchair with mother. Changes into gown independently, oriented to room, demonstrates ability to use call light, call light in reach 09-08-2022 08:32-0500 Blood Pressure Location Luis Carlos Jung [facility] 09-08-2022 08:32-0500 Body temperature 97.34 [degF] Luis Carlos Jung [facility] 09-08-2022 08:32-0500 Diastolic blood pressure 74 mm[Hg] Luis Carlos Jung [facility] 09-08-2022 08:32-0500 Heart rate 90 /min Luis Carlos Jung [facility] 09-08-2022 08:32-0500 Hourly Rounding Luis Carlos Jung [facility] Comment on above: Result Comment: PLAN OF CARE DISCUSSED 09-08-2022 08:32-0500 Mean blood pressure 90 mm[Hg] Luis Carlos Jung [facility] 09-08-2022 08:32-0500 Respiratory rate 18 /min Luis Carlos Jung [facility] 09-08-2022 08:32-0500 Systolic blood pressure 123 mm[Hg] Luis Carlos Jung [facility] 09-05-2022 22:00-0500 Body temperature 98.6 [degF] Kaylinn Dokken [facility] 09-05-2022 22:00-0500 Diastolic blood pressure 73 mm[Hg] Kaylinn Dokken [facility] 09-05-2022 22:00-0500 Mean blood pressure 85 mm[Hg] Kaylinn Dokken [facility] 09-05-2022 22:00-0500 Respiratory rate 27 /min Kaylinn Dokken [facility] 09-05-2022 22:00-0500 SaO2% (BldA) [Mass fraction] 100 % Kaylinn Dokken [facility] 09-05-2022 22:00-0500 Systolic blood pressure 108 mm[Hg] Kaylinn Dokken [facility] 09-05-2022 21:01-0500 Heart rate 78 /min Kaylinn Dokken [facility] 09-05-2022 21:01-0500 Respiratory rate 20 /min Kaylinn Dokken [facility] 09-05-2022 21:01-0500 SaO2% (BldA) [Mass fraction] 94 % Kaylinn Dokken [facility] 09-05-2022 21:00-0500 Diastolic blood pressure 77 mm[Hg] Kaylinn Dokken [facility] 09-05-2022 21:00-0500 Mean blood pressure 87 mm[Hg] Kaylinn Dokken [facility] 09-05-2022 20:10-0500 Body temperature 97.7 [degF] Kaylinn Dokken [facility] 09-05-2022 20:10-0500 Diastolic blood pressure 81 mm[Hg] Kaylinn Dokken [facility] 09-05-2022 20:10-0500 Heart rate 83 /min Kaylinn Dokken [facility] 09-05-2022 20:10-0500 Respiratory rate 22 /min Kaylinn Dokken [facility] 09-05-2022 20:10-0500 SaO2% (BldA) [Mass fraction] 99 % Kaylinn Dokken [facility] 09-05-2022 20:10-0500 Systolic blood pressure 135 mm[Hg] Kaylinn Dokken [facility] 08-31-2022 01:03-0500 Hourly Rounding Luis Carlos Jung [facility] Comment on above: Result Comment: pt ambulates off unit at this time w/ steady gait. 08-31-2022 00:58-0500 Hourly Rounding Luis Carlos Jung [facility] Comment on above: Result Comment: this nurse gives dischar ge instructions to pt at this time. pt verbalizes understanding of all education given. denies further needs. will continue to monitor. 08-31-2022 00:50-0500 Blood Pressure Location Luis Carlos Jung [facility] 08-31-2022 00:50-0500 Diastolic blood pressure 69 mm[Hg] Luis Carlos Jung [facility] 08-31-2022 00:50-0500 Heart rate 67 /min Luis Carlos Jung [facility] 08-31-2022 00:50-0500 Hourly Rounding Luis Carlos Jung [facility] Comment on above: Result Comment: pt up to bathroom at thi s time to void and change into clothes. walks w/ steady gait. 08-31-2022 00:50-0500 Mean blood pressure 83 mm[Hg] Luis Carlos Jung [facility] 08-31-2022 00:50-0500 Respiratory rate 18 /min Luis Carlos Jung [facility] 08-31-2022 00:50-0500 Systolic blood pressure 112 mm[Hg] Luis Carlos Jung [facility] 08-30-2022 21:52-0500 Body temperature 98.06 [degF] Luis Carlos Jung [facility] 08-30-2022 21:52-0500 Diastolic blood pressure 74 mm[Hg] Luis Carlos Jung [facility] 08-30-2022 21:52-0500 Heart rate 82 /min Luis Carlos Jung [facility] 08-30-2022 21:52-0500 Mean blood pressure 90 mm[Hg] Luis Carlos Jung [facility] 08-30-2022 21:52-0500 Respiratory rate 18 /min Luis Carlos Jung [facility] 08-30-2022 21:52-0500 Systolic blood pressure 123 mm[Hg] Luis Carlos Jung [facility] 08-30-2022 21:45-0500 Blood Pressure Location Luis Carlos Jung [facility] 08-22-2022 17:19-0500 Hourly Rounding Luis Carlos Jung [facility] Comment on above: Result Comment: MONITORS OFF; PT UP TO D RESS. DISCHARGE INSTRUCTIONS GIVEN WITH VERBAL UNDERSTANDING. 08-22-2022 15:14-0500 Diastolic blood pressure 71 mm[Hg] Luis Carlos Jung [facility] 08-22-2022 15:14-0500 Heart rate 87 /min Luis Carlos Jung [facility] 08-22-2022 15:14-0500 Hourly Rounding Luis Carlos Jung [facility] 08-22-2022 15:14-0500 Mean blood pressure 86 mm[Hg] Luis Carlos Jung [facility] 08-22-2022 15:14-0500 Respiratory rate 18 /min Luis Carlos Jung [facility] 08-22-2022 15:14-0500 Systolic blood pressure 115 mm[Hg] Luis Carlos Jung [facility] 08-18-2022 12:28-0400 Hourly Rounding Luis Carlos Jung [facility] Comment on above: Result Comment: pt verbalizes understand ing of discharge instructions. pt states she has an appointment sunday with dr jung. pt ambulated out of unit 08-18-2022 10:28-0400 Hourly Rounding Luis Carlos Jung [facility] Comment on above: Result Comment: pt c/o left lower abd pa in. states it is intermittent and sharp. encouraged pt to get up and empty bladder. pt states pain is still 04/23. dr jung on unit & at bedside 08-18-2022 09:09-0400 Hourly Rounding Luis Carlos Jung [facility] Comment on above: Result Comment: pt sitting up in bed wit h breakfast tray, visitor at bedside 08-18-2022 07:15-0400 Blood Pressure Location Luis Carlos Jung [facility] 08-18-2022 07:15-0400 Diastolic blood pressure 56 mm[Hg] Luis Carlos Jung [facility] 08-18-2022 07:15-0400 Heart rate 69 /min Luis Carlos Jung [facility] 08-18-2022 07:15-0400 Mean blood pressure 74 mm[Hg] Luis Carlos Jung [facility] 08-18-2022 07:15-0400 Respiratory rate 16 /min Luis Carlos Jung [facility] 08-18-2022 07:15-0400 Systolic blood pressure 111 mm[Hg] Luis Carlos Fabiana [facility] 08-18-2022 05:58-0400 Blood Pressure Location Luis Carlos Jung [facility] 08-18-2022 05:58-0400 Diastolic blood pressure 59 mm[Hg] Luis Carlos Fabiana [facility] 08-18-2022 05:58-0400 Heart rate 67 /min Luis Carlos Jung [facility] 08-18-2022 05:58-0400 Mean blood pressure 77 mm[Hg] Luis Carlos Jung [facility] 08-18-2022 05:58-0400 Respiratory rate 16 /min Luis Carlos Jung [facility] 08-18-2022 05:58-0400 Systolic blood pressure 113 mm[Hg] Luis Carlos Jung [facility] 08-18-2022 04:06-0400 Blood Pressure Location Luis Carlos Jung [facility] 08-18-2022 04:06-0400 Body temperature 98.06 [degF] Luis Carlos Jung [facility] 08-18-2022 04:06-0400 Diastolic blood pressure 65 mm[Hg] Luis Carlos Jung [facility] 08-18-2022 04:06-0400 Heart rate 70 /min Luis Carlos Jung [facility] 08-18-2022 04:06-0400 Mean blood pressure 79 mm[Hg] Luis Carlos Jung [facility] 08-18-2022 04:06-0400 Respiratory rate 16 /min Luis Carlos Jung [facility] 08-18-2022 04:06-0400 Systolic blood pressure 107 mm[Hg] Luis Carlos Jung [facility] 08-13-2022 20:04-0400 Hourly Rounding Luis Carlos Jung [facility] Comment on above: Result Comment: Patient discharged off u nit. Discharge instructions were reviewed. Pt walks off unit without any notable signs or symtpoms of distress. 08-13-2022 19:45-0400 Hourly Rounding Luis Carlos Jung [facility] 08-13-2022 19:45-0400 Hourly Rounding Luis Carlos Jung [facility] Comment on above: Result Comment: Patient sitting in bed. BPP results reviewed with patient. Pt denied any additional questions. Call light within reach. 08-13-2022 18:12-0400 Heart rate 88 /min Luis Carlos Jung [facility] 08-13-2022 18:12-0400 Nursing Progress Note Reason Other: Pt updated on orders received from . payalzes understanding Luis Carlos Jung [facility] 08-13-2022 18:12-0400 SaO2% (BldA) [Mass fraction] 99 % Luis Carlos Jung [facility] 08-13-2022 17:33-0400 Body temperature 97.88 [degF] Luis Carlos Jung [facility] 08-13-2022 17:33-0400 Diastolic blood pressure 72 mm[Hg] Luis Carlos Jung [facility] 08-13-2022 17:33-0400 Mean blood pressure 88 mm[Hg] Luis Carlos Jung [facility] 08-13-2022 17:33-0400 Respiratory rate 18 /min Luis Carlos Jung [facility] 08-13-2022 17:33-0400 Systolic blood pressure 121 mm[Hg] Luis Carlos Jung [facility] 07-26-2022 10:22-0400 Hourly Rounding Luis Carlos Jung [facility] Comment on above: Result Comment: discharge instructions p rovided and pt signs discharge consent with RN witness. pt preparing for discharge, belly band placed on pt. RN offers wheelchair exit for discharge and pt declines and wants to walk down on own. 07-26-2022 10:22-0400 Promise to Return Luis Carlos Jung [facility] 07-26-2022 10:00-0400 Hourly Rounding Luis Carlos Jung [facility] 07-26-2022 10:00-0400 Promise to Return Luis Carlos Jung [facility] 07-26-2022 09:15-0400 Blood Pressure Location Luis Carlos Jung [facility] 07-26-2022 09:15-0400 Body temperature 97.7 [degF] Luis Carlos Jung [facility] 07-26-2022 09:15-0400 Diastolic blood pressure 62 mm[Hg] Luis Carlos Jung [facility] 07-26-2022 09:15-0400 Heart rate 70 /min Luis Carlos Jung [facility] 07-26-2022 09:15-0400 Hourly Rounding Luis Carlos Jung [facility] 07-26-2022 09:15-0400 Mean blood pressure 74 mm[Hg] Luis Carlos Jung [facility] 07-26-2022 09:15-0400 Respiratory rate 18 /min Luis Carlos Jung [facility] 07-26-2022 09:15-0400 Systolic blood pressure 97 mm[Hg] Luis Carlos Jung [facility] 07-26-2022 09:00-0400 Promise to Return Luis Carlos Jung [facility] 07-26-2022 08:14-0400 Body temperature 98.06 [degF] Luis Carlos Jung [facility] 07-26-2022 08:14-0400 Diastolic blood pressure 66 mm[Hg] Luis Carlos Jung [facility] 07-26-2022 08:14-0400 Heart rate 81 /min Luis Carlos Jung [facility] 07-26-2022 08:14-0400 Mean blood pressure 80 mm[Hg] Luis Carlos Jung [facility] 07-26-2022 08:14-0400 Respiratory rate 18 /min Luis Carlos Jung [facility] 07-26-2022 08:14-0400 Systolic blood pressure 109 mm[Hg] Luis Carlos Jung [facility] 07-17-2022 09:07-0400 Body temperature 97.88 [degF] Ko Dumas [facility] 07-17-2022 09:07-0400 Diastolic blood pressure 74 mm[Hg] Ko Dumas [facility] 07-17-2022 09:07-0400 Heart rate 85 /min Ko Dumas [facility] 07-17-2022 09:07-0400 Respiratory rate 16 /min Ko Dumas [facility] 07-17-2022 09:07-0400 SaO2% (BldA) [Mass fraction] 100 % Ko Dumas [facility] 07-17-2022 09:07-0400 Systolic blood pressure 117 mm[Hg] Ko Dumas [facility] 06-26-2022 21:38-0400 Blood Pressure Location Luis Carlos Jung [facility] 06-26-2022 21:38-0400 Diastolic blood pressure 61 mm[Hg] Luis Carlos Jung [facility] 06-26-2022 21:38-0400 Heart rate 83 /min Luis Carlos Jung [facility] 06-26-2022 21:38-0400 Hourly Rounding Luis Carlos Jung [facility] Comment on above: Result Comment: discharged ambulatory to pov 06-26-2022 21:38-0400 Mean blood pressure 75 mm[Hg] Luis Carlos Fabiana [facility] 06-26-2022 21:38-0400 Respiratory rate 16 /min Luis Carlos Montesinosten [facility] 06-26-2022 21:38-0400 Systolic blood pressure 102 mm[Hg] Luis Carlos Montesinosten [facility] 06-26-2022 21:15-0400 Blood Pressure Location Luis Carlos Fabiana [facility] 06-26-2022 21:15-0400 Diastolic blood pressure 64 mm[Hg] Luis Carlos Montesinosten [facility] 06-26-2022 21:15-0400 Heart rate 74 /min Luis Carlos Jung [facility] 06-26-2022 21:15-0400 Hourly Rounding Luis Carlos Jung [facility] 06-26-2022 21:15-0400 Mean blood pressure 78 mm[Hg] Luis Carlos Montesinosten [facility] 06-26-2022 21:15-0400 Respiratory rate 16 /min Luis Carlos Montesinosten [facility] 06-26-2022 21:15-0400 Systolic blood pressure 106 mm[Hg] Luis Carlos Fabiana [facility] 06-26-2022 21:05-0400 Body temperature 97.88 [degF] Luis Carlos Fabiana [facility] 06-26-2022 21:05-0400 Respiratory rate 18 /min Luis Carlos Jung [facility] 06-26-2022 21:00-0400 Hourly Rounding Luis Carlos Jung [facility] Comment on above: Result Comment: ice water given 06-19-2022 01:30-0400 Hourly Rounding Luis Carlos Jung [facility] Comment on above: Result Comment: updated on plan of care after speaking to dr jung. verb understanding and all d/c instructions provided. denies further needs/concerns. ambulates off unit without any further questions. 06-19-2022 01:00-0400 Hourly Rounding Luis Carlos Jung [facility] Comment on above: Result Comment: rests in bed on phone. d enies any needs. denies any pain at this time or any pain or cramping since arrival. call light within reach 06-19-2022 00:15-0400 Hourly Rounding Luis Carlos Jung [facility] 06-18-2022 23:54-0400 Body temperature 97.88 [degF] Luis Carlos Jung [facility] 06-18-2022 23:54-0400 Diastolic blood pressure 65 mm[Hg] Luis Carlos Jung [facility] 06-18-2022 23:54-0400 Heart rate 76 /min Luis Carlos Jung [facility] 06-18-2022 23:54-0400 Mean blood pressure 81 mm[Hg] Luis Carlos Jung [facility] 06-18-2022 23:54-0400 Respiratory rate 18 /min Luis Carlos Jung [facility] 06-18-2022 23:54-0400 Systolic blood pressure 112 mm[Hg] Luis Carlos Jung [facility] 06-18-2022 23:45-0400 Blood Pressure Location Luis Carlos Jung [facility] 05-01-2022 17:45-0400 Hourly Rounding Luis Carlos Jung [facility] Comment on above: Result Comment: reviewed disch inst and meds to take states understanding 05-01-2022 17:30-0400 Hourly Rounding Luis Carlos Jung [facility] 05-01-2022 17:23-0400 Body temperature 98.06 [degF] Luis Carlos Jung [facility] 05-01-2022 17:23-0400 Diastolic blood pressure 57 mm[Hg] Luis Carlos Jung [facility] 05-01-2022 17:23-0400 Heart rate 83 /min Luis Carlos Jung [facility] 05-01-2022 17:23-0400 Mean blood pressure 71 mm[Hg] Luis Carlos Jung [facility] 05-01-2022 17:23-0400 Respiratory rate 16 /min Luis Carlos Jung [facility] 05-01-2022 17:23-0400 Systolic blood pressure 99 mm[Hg] Luis Carlos Jung [facility] 05-01-2022 17:15-0400 Blood Pressure Location Luis Carlos Jung [facility] 05-01-2022 17:15-0400 Hourly Rounding Luis Carlos Jung [facility] 04-02-2022 13:30-0400 Hourly Rounding Luis Carlos Jung [facility] Comment on above: Result Comment: pt given discharge instr uctions at this time to follow up with fabiana sunday or states understanding to call office tomorrow for appointment 04-02-2022 12:30-0400 Hourly Rounding Luis Carlos Jung [facility] Comment on above: Result Comment: pt returns to bed from r estroom at this time denies discomfort at this time 04-02-2022 11:30-0400 Hourly Rounding Luis Carlos Jung [facility] Comment on above: Result Comment: pt sitting in bed at thi s time denies needs or discomfort 04-02-2022 06:28-0400 Body temperature 99.68 [degF] Luis Carlos Jung [facility] 04-02-2022 06:28-0400 Diastolic blood pressure 68 mm[Hg] Luis Carlos Jung [facility] 04-02-2022 06:28-0400 Heart rate 89 /min Luis Carlos Jung [facility] 04-02-2022 06:28-0400 Heart rate 86 /min Luis Carlos Jung [facility] 04-02-2022 06:28-0400 Mean blood pressure 83 mm[Hg] Luis Carlos Jung [facility] 04-02-2022 06:28-0400 Respiratory rate 20 /min Luis Carlos Jung [facility] 04-02-2022 06:28-0400 SaO2% (BldA) [Mass fraction] 98 % Luis Carlos Jung [facility] 04-02-2022 06:28-0400 Systolic blood pressure 114 mm[Hg] Luis Carlos Fabiana [facility] 03-23-2022 21:08-0400 Hourly Rounding Luis Carlos Jung [facility] Comment on above: Result Comment: Patient ambulatory off u nit. No signs or symptoms of distress noted. 03-23-2022 20:35-0400 Hourly Rounding Luis Carlos Jung [facility] Comment on above: Result Comment: Patient updated on plan of care. Verbalizes understanding. Call light in reach. 03-23-2022 19:49-0400 Blood Pressure Location Luis Carlos Jung [facility] 03-23-2022 19:49-0400 Body temperature 98.78 [degF] Luis Carlos Jung [facility] 03-23-2022 19:49-0400 Diastolic blood pressure 66 mm[Hg] Luis Carlos Jung [facility] 03-23-2022 19:49-0400 Heart rate 69 /min Luis Carlos Jung [facility] 03-23-2022 19:49-0400 Hourly Rounding Luis Carlos Jung [facility] Comment on above: Result Comment: Patient arrives on unit. 03-23-2022 19:49-0400 Mean blood pressure 79 mm[Hg] Luis Carlos Jung [facility] 03-23-2022 19:49-0400 Respiratory rate 16 /min Luis Carlos Jung [facility] 03-23-2022 19:49-0400 Systolic blood pressure 106 mm[Hg] Luis Carlos Jung [facility] 10-14-2020 13:15-0500 Pulse (Heart Rate) 74 /min [facility] 10-14-2020 13:15-0500 Pulse Oximetry 98 % [facility] 10-14-2020 13:15-0500 Respiratory Rate 16 /min [facility] 10-14-2020 13:00-0500 BP Diastolic 74 mm[Hg] [facility] 10-14-2020 13:00-0500 BP Systolic 123 mm[Hg] [facility] 10-14-2020 10:13-0500 BMI (Body Mass Index) 34.33 kg/m2 [facility] 10-14-2020 10:13-0500 Body Temperature 97.81 [degF] [facility] 10-14-2020 10:13-0500 Body weight 90.72 kg [facility] 10-14-2020 10:13-0500 Height 162.6 cm [facility] 08-09-2020 20:33-0400 BP Diastolic 81 mm[Hg] [place] 08-09-2020 20:33-0400 BP Systolic 122 mm[Hg] [place] 08-09-2020 20:33-0400 Pulse (Heart Rate) 78 /min [place] 08-09-2020 20:33-0400 Respiratory Rate 16 /min [place] 08-09-2020 19:03-0400 BMI (Body Mass Index) 39.48 kg/m2 [place] 08-09-2020 19:03-0400 Body Temperature 98.29 [degF] [place] 08-09-2020 19:03-0400 Body weight 104.33 kg [place] 08-09-2020 19:03-0400 Height 162.6 cm [place] 08-09-2020 19:03-0400 Pulse Oximetry 98 % [place] Encounters Encounter Date Encounter Type Care Provider Facility Start: 11-06-2023 End: 11-06-2023 ambulatory RASHAUN PURVIS Not Available Start: 11-04-2023 End: 11-04-2023 OB Triage Rashaun PURVIS [facility] Start: 10-31-2023 End: 10-31-2023 ambulatory RASHAUN PURVIS Not Available Start: 10-18-2023 End: 10-18-2023 ambulatory DODIE MILLER Not Available Start: 10-03-2023 End: 10-03-2023 ambulatory DODIE MILLER Not Available Start: 09-12-2023 End: 09-12-2023 ambulatory RASHAUN PURVIS Not Available Start: 08-23-2023 End: 08-23-2023 Lab Drop off ZORAN MYRICK [facility] Start: 08-23-2023 End: 08-24-2023 ambulatory PAPER RULER ZORAN J ELEN Facility:[facility] Start: 08-19-2023 End: 09-14-2023 Pre-admission assessment Julia Haywood [facility] Start: 08-18-2023 End: 08-18-2023 ambulatory DO Julia Wallace Haywood Facility:[facility] Start: 08-18-2023 End: 08-18-2023 OB Triage Julia JPatricia Haywood [facility] Start: 07-25-2023 End: 07-25-2023 Emergency department patient visit Kristian Guillermo Facility:[facility] Start: 07-25-2023 End: 07-25-2023 Emergency department patient visit Kristian Guillermo [facility] Start: 06-28-2023 End: 06-29-2023 ambulatory Roverto V. Spasic Facility:[facility] Start: 06-28-2023 End: 06-28-2023 Patient encounter procedure Roverto V. Spasic [facility] Start: 06-14-2023 End: 06-14-2023 Emergency department patient visit Kristian Guillermo Facility:[facility] Start: 06-14-2023 End: 06-14-2023 Emergency department patient visit Kristian Guillermo [facility] Start: 06-12-2023 End: 06-13-2023 ambulatory Luis Carlos Jung Facility:[facility] Start: 06-12-2023 End: 06-12-2023 Patient encounter procedure Luis Carlos Jung [facility] Start: 05-21-2023 End: 05-22-2023 Emergency department patient visit DO Gopi Rodriguez Facility:[facility] Start: 05-21-2023 End: 05-21-2023 Emergency department patient visit Gopi Rodriguez [facility] Start: 04-30-2023 End: 05-01-2023 ambulatory Luis Carlos Jung Facility:[facility] Start: 04-30-2023 End: 04-30-2023 Lab Drop off Luis Carlos Jung [facility] Start: 04-30-2023 End: 05-01-2023 ambulatory Luis Carlos Jung Facility:[facility] Start: 04-30-2023 End: 04-30-2023 Patient encounter procedure Luis Carlos Jung [facility] Start: 04-26-2023 End: 04-26-2023 Emergency department patient visit Laura Leonfelipe Facility:[facility] Start: 04-26-2023 End: 04-26-2023 Emergency department patient visit Vimalelena Charles Bert [facility] Start: 01-31-2023 End: 01-31-2023 Emergency department patient visit Kristian Guillermo Facility:[facility] Start: 01-31-2023 End: 01-31-2023 Emergency department patient visit Kristian Guillermo [facility] Start: 09-24-2022 End: 09-27-2022 Evaluation and management of inpatient Luis Carlos Jung Facility:[facility] Start: 09-22-2022 End: 09-22-2022 ambulatory Luis Carlos Jung Facility:[facility] Start: 09-22-2022 End: 09-22-2022 OB Triage Luis Carlos Jung [facility] Start: 09-20-2022 End: 09-20-2022 ambulatory Luis Carlos Jung Facility:[facility] Start: 09-20-2022 End: 09-20-2022 OB Triage Luis Carlos Jung [facility] Start: 09-19-2022 End: 09-19-2022 ambulatory Jj MIKE Facility:[facility] Start: 09-19-2022 End: 09-19-2022 OB Triage Jj MIKE [facility] Start: 09-14-2022 End: 09-14-2022 ambulatory Luis Carlos Jung Facility:[facility] Start: 09-14-2022 Emergency department patient visit DO Gopi Rodriguez Facility:[facility] Start: 09-14-2022 End: 09-14-2022 OB Triage Luis Carlos Jung [facility] Start: 09-12-2022 End: 09-12-2022 ambulatory Luis Carlos Jung Facility:[facility] Start: 09-12-2022 End: 09-12-2022 OB Triage Luis Carlos Jung [facility] Start: 09-08-2022 End: 09-08-2022 ambulatory Luis Carlos Jung Facility:[facility] Start: 09-08-2022 End: 09-08-2022 OB Triage Luis Carlos Jung [facility] Start: 09-06-2022 End: 12-06-2022 ambulatory Luis Carlos Jung Facility:[facility] Start: 09-05-2022 End: 09-06-2022 Emergency department patient visit DO Gopi Rodriguez Facility:[facility] Start: 09-05-2022 End: 09-05-2022 Emergency department patient visit Gopi Rodriguez [facility] Start: 09-05-2022 End: 12-05-2022 Patient encounter procedure SELF REFERRAL [facility] Start: 09-04-2022 End: 09-05-2022 ambulatory Luis Carlos Rochelle Jung Facility:[facility] Start: 09-04-2022 End: 09-04-2022 Lab Drop off Luis Carlos Rochelle Jung [facility] Start: 08-30-2022 End: 08-31-2022 ambulatory Luis Carlos Rochelle Jung Facility:[facility] Start: 08-30-2022 End: 08-31-2022 OB Triage Luis Carlos Rochelle Jung [facility] Start: 08-22-2022 End: 08-22-2022 OB Triage Luis Carlos Rochelle Jung [facility] Start: 08-18-2022 End: 08-18-2022 OB Triage Luis Carlos Rochelle Jung [facility] Start: 08-13-2022 End: 08-13-2022 OB Triage Luis Carlos Byrd Fabiana [facility] Start: 07-26-2022 End: 07-26-2022 OB Triage Luis Carlos Byrd Fabiana [facility] Start: 07-17-2022 End: 07-17-2022 Emergency department patient visit Ko Dumas [facility] Start: 06-28-2022 End: 06-28-2022 Patient encounter procedure Luis Carlos Byrd Fabiana [facility] Start: 06-26-2022 End: 06-26-2022 OB Triage Luis Carlos Byrd Fabiana [facility] Start: 06-20-2022 End: 07-15-2022 Pre-admission assessment Luis Carlos Jung [facility] Start: 06-18-2022 End: 06-19-2022 OB Triage Luis Carlos Byrd Fabiana [facility] Start: 05-02-2022 End: 06-15-2022 Pre-admission assessment THANG MILLAN [facility] Start: 05-01-2022 End: 05-01-2022 OB Triage Luis Carlos Byrd Fabiana [facility] Start: 04-02-2022 End: 04-02-2022 OB Triage Luis Carlos Byrd Fabiana [facility] Start: 03-23-2022 End: 03-23-2022 OB Triage Luis Carlos Byrd Fabiana [facility] Start: 03-16-2022 End: 03-16-2022 Patient encounter procedure Luis Carlos Jung [facility] Start: 02-15-2022 End: 02-15-2022 Lab Drop off Luis Carlos Jung [facility] Start: 02-23-2021 End: 02-23-2021 Patient encounter procedure Martha Webb MD Work Phone: [facility] Start: 02-23-2021 Results Only Martha Webb MD Work Phone: Gastroenterology Start: 10-14-2020 End: 10-14-2020 Emergency department patient visit PHYSICIAN NO [facility] Start: 10-14-2020 End: 10-14-2020 Emergency department patient visit Regine Chow Work Phone: [facility] Emergency Department Comment on above: Vertigo (Primary Dx) Start: 08-09-2020 End: 08-09-2020 Emergency department patient visit [facility] Start: 08-09-2020 End: 08-09-2020 Emergency department patient visit [facility] Work Phone: [facility] ED Comment on above: Contusion of right k nee, initial encounter (Primary Dx); Contusion of multiple sites of right shoulder and upper arm, initial encounter Start: 07-23-2017 End: 07-23-2017 Emergency department patient visit NKECHI TORRES [facility] Procedures Date Procedure Procedure Detail [...] blood count with white cell differential, manual Susna Griffiths Work Phone: Start: 10-14-2020 COVID-19/INFLUENZA A,B [...] 05-12-2028 Tetanus vaccination Tetanus: Every 1 0yrs [facility] Start: 06-15-2021 Influenza vaccination INFLUENZ A (Season Ended) [facility] Start: 06-15-2020 Influenza vaccination Flu vaccine (# 1) [place], [place] Start: 2014 PAP TESTING PAP TESTING [facility] Start: 2014 Screening for malign ant neoplasm of cervix Cervical cancer screen [place], [place] Start: 2012 DTaP/Tdap/Td vaccine (1 - Tdap) DTaP/Tdap/Td vaccine (1 - Tdap) [place] Start: 2012 Urine microalbumin profile DTAP,TDAP,TD (1 - Tdap) [facility] Start: 2011 Hepatitis C antibody , confirmatory test Hepatitis C Screening [facility] Start: 2011 HEPATITIS C SCREENING HEPATITIS C SC REENING [facility] Start: 2011 HIV SCREENING HIV SCREENING [facility] Start: 2008 [facility] [place] [place] Start: 2005 Adolescent depressio n screening assessment [facility] Start: 2004 HPV vaccine (1 - 2-d ose series) HPV vaccine (1 - 2-dose series) [place], [place] Start: 1996 History and physical examination, annual for health maintenance Wellness Visit [facility] Start: 1994 Varicella vaccine (1 of 2 - 2-dose childhood series) Varicella vaccine (1 of 2 - 2-dose childhood series) [place], [place] Start: 1993 Screening for malign ant neoplasm of cervix Pap Smear [facility] PT ED PATIENT INFORMATION PT ED PATIENT INFORMATION Other 02/23/2021 [facility] Immunizations Immunization Date Immunization Notes Care Provider Lennox ramirez 08-18-2023 influenza, seasonal, injectable Julia Haywood [facility] 09-25-2022 influenza, seasonal, injectable SELF REFERRAL [facility] Comment on above: Early/Late Reason: E isaac/Late Reason: Nursing Judgment 01-28-2021 COVID-19, mRNA, LNP- S, PF, 30 mcg/0.3 mL dose; Translations: [Catawiki COVID-19 Vaccine] Luis Carlos Jung [facility] Comment on above: Reason for Medicatio n: Prophylaxis Reason for Medicatio n: Prophylaxis 12-31-2020 COVID-19, mRNA, LNP- S, PF, 30 mcg/0.3 mL dose; Translations: [Pfizer-BioNTech COVID-19 Vaccine] Luis Carlos Fabiana [facility] Comment on above: Reason for Medicatio n: Prophylaxis Reason for Medicatio n: Prophylaxis 05-12-2018 tetanus toxoid, reduced diphtheria toxoid, and acellular pertussis vaccine, adsorbed; Translations: [Adacel (Tdap)] Luis Carlos Fabiana [facility] Payers Date Payer Category Payer Unknown [id number] 2019 Unknown [id number]. [id number] 1993 Unknown [id number] 2.16.8 40.1.114323.3.579.2.173 1993 Unknown [id number] 2.16. 840.1.431799.3.579.2.903 1993 Unknown [id number] 2.16.8 40.1.255273.3.579.2.727 1993 Unknown [id number] 2.16.8 40.1.811303.3.579.2.727 1993 Unknown [id number] 2.16.8 40.1.462315.3.579.2.727 1993 Unknown [id number] 2.16.8 40.1.407515.3.579.2.727 1993 Unknown [id number] 2.16.8 40.1.704115.3.579.2.727 1993 Unknown [id number] 2.16.8 40.1.490506.3.579.2.727 1993 Unknown [id number] 2.16.8 40.1.692925.3.579.2. 1993 Unknown [id number] 2.16.8 40.1.401471.3.579.2. 1993 Unknown [id number] 2.16.8 40.1.190346.3.579.2. 1993 Unknown [id number] 2.16.8 40.1.969892.3.579.2. 1993 Unknown [id number] 2.16.8 40.1.924225.3.579.2. 1993 Unknown [id number] 2.16.8 40.1.215022.3.579.2. 1993 Unknown [id number] 2.16.8 40.1.632857.3.579.2 1993 Unknown [id number] 2.16.8 40.1.406128.3.579.2 1993 Unknown [id number] 2.16.8 40.1.279923.3.579.2 1993 Unknown [id number] 2.16.8 40.1.622725.3.579.2 1993 Unknown [id number] 2.16.8 40.1.222670.3.579.2. 1993 Unknown [id number] 2.16.8 40.1.114304.3.579.2. 1993 Unknown [id number] 2.16.8 40.1.770125.3.579.2. 1993 Unknown [id number] 2.16.8 40.1.980471.3.579.2. 1993 Unknown [id number] 2.16.8 40.1.040234.3.579.2. 1993 Unknown [id number] 2.16.8 40.1.338508.3.579.2 1993 Unknown [id number] 2.16.8 40.1.481717.3.579.2.727 1993 Unknown [id number] 2.16.8 40.1.483345.3.579.2.727 1993 Unknown [id number] 2.16.84 0.1.136623.3.579.2.1259 1993 Unknown [id number] 2.16.84 0.1.852982.3.579.2.1259 1993 Unknown [id number] 2.16.840 .1.757114.3.579.2.1259 1993 Unknown [id number] 2.16.840 .1.880315.3.579.2.1259 1993 Unknown [id number] 2.16.840 .1.341653.3.579.2.1259 1993 Unknown [id number] 2.16.840 .1.138963.3.579.2.1259 Social History Date Type Detail Facility Start: 08-09-2020 End: 10-14-2020 Tobacco smoking status NHIS Current every day smoker [place] Start: 08-09-2020 End: 10-14-2020 Tobacco use and exposure Never used [place] Start: 10-14-2020 Alcohol intake Ex-drinker (finding) [facility] Start: 1993 Sex Assigned At Not on file [place] Exposure to SARS-CoV -2 (event) Not sure [place] Start: 08-09-2020 Cigarettes smoked current (pack per day) - Reported [place] Start: 08-09-2020 Alcohol intake Lifetime non-d val (finding) [place] Start: 08-09-2020 History SDOH Alcohol Frequency 1 [place] Start: 07-06-2021 End: 08-18-2022 Tobacco smoking status Light tobacco smoker (finding) [facility] Sex Assigned At Female [facility] Tobacco [facility] Comment on above: current current denies Start: 06-28-2023 Tobacco smoking status Ex-smoker (fi nding) [facility] Comment on above: current Tobacco smoking status Never [facility] Comment on above: current Tobacco smoking status No Smokin g Status Entered [facility] Functional Status Date Assessment Result Facility 11-04-2023 Functional Status N/A [facility] 08-18-2023 Functional Status N/A [facility] 07-25-2023 Functional Status N/A [facility] 06-28-2023 Functional Status N/A [facility] 06-14-2023 Functional Status N/A [facility] 05-21-2023 Functional Status N/A [facility] 04-26-2023 Functional Status N/A [facility] 01-31-2023 Functional Status N/A [facility] 09-22-2022 Functional Status N/A [facility] 09-20-2022 Functional Status N/A [facility] 09-19-2022 Functional Status N/A [facility] 09-14-2022 Functional Status N/A [facility] 09-12-2022 Functional Status N/A [facility] 09-08-2022 Functional Status N/A [facility] 09-05-2022 Functional Status Yes [facility] 08-30-2022 Functional Status N/A [facility] 08-22-2022 Functional Status N/A [facility] 08-18-2022 Functional Status N/A [facility] 08-13-2022 Functional Status N/A [facility] 07-26-2022 Functional Status N/A [facility] 07-17-2022 Functional Status N/A [facility] 06-26-2022 Functional Status N/A [facility] 06-18-2022 Functional Status N/A [facility] 05-01-2022 Functional Status N/A [facility] 04-02-2022 Functional Status N/A [facility] Clinical Notes 03-10-2021 to 11-04-2023 Note Date & Type Note Facility 11-04-2023 Evaluation + Plan note Diagnostic Tests PendingUrine Culture 11/04/23 [facility] 11-04-2023 Hospital Discharg e instructions Follow Up Care 11/04/2023 07:55:34 With:Rashaun PURVIS Address: [address] [place] [address]- Business (1) When:11/06/2023 Comments:Call for any problems.Appointment has already been scheduledCall physician if symptoms worsenPlease call if you need to rescheduleReturn for contractions closer, longer, harderReturn for decreased movementReturn if ruptured membranes or vaginal bleeding [facility] 08-23-2023 Evaluation + Plan note Diagnostic Tests PendingT3 Total 08/23/23 [facility] 08-18-2023 Note The following Any t Education Materials have been given to the patient: EducationMaterial [facility] 08-18-2023 Hospital Discharg e instructions Patient Education 08/18/2023 08:14:46 Second Trimester of , Kyuu-cu-Xtcn Second Trimester of The second trimester of [...] Follow these instructions at home: Medicines Take mkes-jra-rksqojk and prescription medicines only as told by [...] a counselor. Where to find more information [place] Association: americanpregnancy.org [place] [employer]nec[employer]: www.acog.org Office [...] provider. Document Revised: 03/09/2021 Document Reviewed: 01/13/2021 Shozu Patient Education 2022 Veracode. [facility] 07-25-2023 Evaluation + Plan note Extrac [...] Diagnostic Tests Pending * Urine Culture 07/25/23 [facility]10-11-2023 Hospital Discharge instructions Patient Education 07/25/2023 [...] to keep your urine pale yellow. Take itlu-nep-lhoslwy and prescription medicines only as told by [...] provider. Document Revised: 06/14/2021 Document Reviewed: 06/14/2021 Shozu Patient Education 2022 Smartesting Follow Up Care 07/25/2023 08:14:26 With:Luis Carlos Jung Address: [facility] [address], [place] [id number] (1) When:07/28/2023 09:56:27 [facility]09-14-2023 Evaluation + Plan note Diagnostic Tests Pending * Urine Culture 06/28/23 [facility]09-14-2023 Hospital Discharge instructions Patient Education 06/28/2023 11:39:14 Urinary Tract Infection, Adult, Nmvd-ji-Efuc Urinary Tract Infection, Adult A urinary tract [...] Follow these instructions at home: Medicines Take zjcu-omp-ahtatnz and prescription medicines only as told by [...] provider. Document Revised: 05/13/2021 Document Reviewed: 05/13/2021 Shozu Patient Education 2022 Veracode. 06/28/2023 11:39:14 Urinary Tract Infection, Adult, Utjb-ot-Qart Urinary Tract Infection, Adult A urinary tract [...] Follow these instructions at home: Medicines Take pdtc-hph-ntrugls and prescription medicines only as told by [...] provider. Document Revised: 05/13/2021 Document Reviewed: 05/13/2021 Shozu Patient Education 2022 Veracode. Follow Up Care 06/28/2023 10:22:58 With:Fabiana MARION, SAMPSON Buenrostro Address: [address] [place] [id number]- When: Unknown [facility] [id number] Evaluation + Plan noteExtracted from: Title:ED Note Author:Jos Ugalde PA-C te:06/14/23 1. Abdominal pain (R10.9: Un specified abdominal pain) Orders: ABO/Rh Automated Diff Basic Metabolic Panel Beta hCG Quantitative CBC w/ Auto Diff eGFR Extra Blue Tube Extra SST Tube Hepatic Function Panel Lipase Level UA With Cult Reflex US 1st Trimester [facility]08-08-2023 Hospital Discharge instructions Patient Education 05/21/2023 23:23:44 Nonspecific Chest Pain, Adult, Ecma-tl-Klkf Nonspecific Chest Pain Chest pain can be [...] Follow these instructions at home: Medicines Take nhho-kbu-jgytpqv and prescription medicines only as told by [...] diet. A diet and food and nutrition services assistant (dietitian) can help you to learn [...] Document Reviewed: 12/15/2021 Elsevier Patient Education 2022 Veracode. 05/21/2023 23:23:44 Nausea and Vomiting, Adult, Bjbc-cs-Xgmf Nausea and Vomiting, Adult Nausea is feeling [...] fruit juice). ?Low-calorie sports drinks. Eat bland, yfni-cs-fullde foods in small amounts as you are able, such as: ?Bananas. ?Applesauce. ?Rice. ?Low-fat (lean) meats. ?[place]. ?Crackers. Avoid drinking fluids that have a lot of sugar or caffeine in them. This includes energy drinks, sports drinks, and soda. Avoid alcohol. Avoid spicy or fatty foods. General instructions Take vkln-jfq-grwbdwr and prescription medicines only as told by your doctor. Drink enough fluid to keep your pee (urine) pale yellow. Wash your hands often with soap and water for at least 20 seconds. If you cannot use soap and water, use hand medical coding technician. Make sure that everyone in your home [...] your doctor about eating and drinking. Take mhrs-fwu-mznztnw and prescription medicines only as told by your doctor. Contact your doctor if your symptoms get worse or you have new symptoms. Keep all follow-up visits. This information is not intended to replace advice given to you by your health care provider. Make sure you discuss any questions you have with your health care provider. Document Revised: 04/07/2022 Document Reviewed: 04/07/2022 Shozu Patient Education 2022 [employer] Inc. 05/21/2023 23:23:44 Abdominal Pain During , Xnwy-hi-Crqr Abdominal Pain During Belly (abdominal) pain is [...] keep your pee (urine) pale yellow. Take igsq-agc-igkbpqq and prescription medicines only as told by [...] provider. Document Revised: 06/14/2021 Document Reviewed: 06/14/2021 Shozu Patient Education 2022 Veracode. Follow Up Care 05/21/2023 20:38:52 With:Luis Carlos Jung Address: [facility] [address] [address] Business (1) When:05/24/2023 Comments:Take the Pepcid once daily until you have completed the course. You can use the Zofran every 6 hours as needed for nausea and vomiting. Please follow-up with your primary care doctor next 2 to 3 days. Please return to the ED for any new or worsening symptoms. [facility]08-07-2023 Evaluation + Plan noteExtracted from: Title:ED [...] day(s), # 15 cap(s), Refills(s) 0, Pharmacy: [facility], 162.6, cm, 05/21/23 20:50:00 EDT, Height/Length Dosing, 75.3, kg, 05/21/23 20:50:00 EDT, Weight Dosing famotidine, 20 mg = 2 mL, Soln-IV, IV Push, Once, Stop date 05/21/23 21:00:00 EDT, STAT, Start date 05/21/23 21:00:00 EDT, 05/21/23 21:00:00 EDT famotidine, 20 mg = 1 tab(s), Oral, Daily, # 14 tab(s), Refills(s) 0, Pharmacy: [facility], 162.6, cm, 05/21/23 20:50:00 [...] UA With Cult Reflex US 1st Trimester [facility]07-17-2023 Evaluation + Plan note Diagnostic Tests Pending * PAP [id number] 04/30/23 * Urine Culture 04/30/23 [facility]07-17-2023 Evaluation + Plan note Diagnostic Tests Pending * RPR with Conf Rfx 04/30/23 * HIV Screen 4th Generation wRfx 04/30/23 * Rubella Antibody IgG 04/30/23 * Hepatitis B Surface Antigen 04/30/23 [facility]07-13-2023 Evaluation + Plan noteExtracted from: Title:ED Note Author:Jos Ugalde PA-C te:04/26/23 Abdominal pain (R10.9: Unspe cified abdominal pain) (Z34.90: Encounter for supervision of normal , unspecified, unspecified trimester) Orders: Beta hCG Quantitative Extra Lav Tube Extra SST Tube US 1st Trimester US Transvaginal [facility]07-13-2023 Hospital Discharge instructions Patient Education 04/26/2023 [...] to keep your urine pale yellow. Take itri-nvb-heukjon and prescription medicines only as told by [...] provider. Document Revised: 06/14/2021 Document Reviewed: 06/14/2021 Shozu Patient Education 2022 Veracode. Follow Up Care 04/26/2023 08:52:22 With:Luis Carlos Jung Address: [address] [place], [place] [id number] [facility] (1) When:04/29/2023 10:58:02 [facility]04-19-2023 Evaluation + Plan noteExtracted from: Title:ED [...] Head eGFR Oxygen Therapy PT & PTT [facility]04-19-2023 Hospital Discharge instructions Patient Education 01/31/2023 [...] Follow these instructions at home: Medicines Take jizc-xkb-houvxid and prescription medicines only as told by your health care provider. Ask your health care provider if the medicine prescribed to you: ?Requires you to avoid driving or using heavy machinery. ?Can cause constipation. You may need to take these actions to prevent or treat constipation: ?Drink enough fluid to keep your urine pale yellow. ?Take oyzd-sza-tyfxegg or prescription medicines. ?Eat foods that are [...] provider. Document Revised: 01/23/2020 Document Reviewed: 11/13/2019 Shozu Patient Education 2022 Veracode. Follow Up Care 01/31/2023 09:42:02 With:THANG BELINDA Address: [address] [place] [id number] Business (1) When:02/03/2023 11:57:07 Comments:Call the office [...] fever, or any new or worsening symptoms. [facility]12[facility]16[facility]2022 [facility] Comment: Electronically Signed By: Luis Carlos Jung MD\.br\Date and Time Signed: 09/29/22 09:25 [id number] [facility] Comment on above:Result Comment: Electronically Signed By: Luis Carlos Jung MD\.br\Date and Time Signed: 09/29/22 09:25 [id number] NoteThe following Patient Education Materials have been given to the patient: [facility] NoteThe following Patient Education Materials have been given to the patient: [facility]12-09-2022 Hospital Discharge instructions Follow Up Care 09/22/2022 15:11:14 With:Luis Carlos Jung Address: [address] [place] [address]- [facility] (1) When:09/24/2022 20:30:00 Comments:Appointment has already been scheduledCall for any problems.Call for fever > 100.5 FCall for severe abdominal painCall physician for heavy vaginal bleedingCall physician if symptoms worsenReturn for contractions closer, longer, harderReturn for decreased movementReturn if ruptured membranes or vaginal bleedingCall at 7:30 pm Sunday to confirm induction at 8:30 [facility]12-07-2022 NoteThe following Patient Education Materials have been given to the patient: [facility]12-06-2022 NoteThe following Patient Education Materials have been given to the patient: [facility]12-06-2022 Hospital Discharge instructions Follow Up Care 09/19/2022 01:24:08 With:Luis Carlos Jung Address: [facility] [address] [place] [address] [facility] (1) When:09/20/2022 Comments:Appointment has already been scheduledCall Dr if fever>100.5 F, heavy bleedingCall for any problems.Call for severe abdominal painCall physician for heavy vaginal bleedingCall physician if symptoms worsenReturn for contractions closer, longer, harderPlease call if you need to rescheduleReturn for decreased movementReturn if ruptured membranes or vaginal bleeding [facility]12-01-2022 NoteThe following Patient Education Materials have been given to the patient: [facility]12-01-2022 Hospital Discharge instructions Patient Education 09/14/2022 11:56:10 Sinus Headache, Pefz-db-Cerq Sinus Headache A sinus headache happens when [...] on the bottle or box. Medicines Take nilj-ble-itjbfhw and prescription medicines only as told by [...] face, forehead, ears, or upper teeth. Take jndv-tmq-ffbtplp and prescription medicines only as told by your doctor. If told, apply a warm, moist washcloth to your face. This can help to lessen pain. This information is not intended to replace advice given to you by your health care provider. Make sure you discuss any questions you have with your health care provider. Document Released: 01/31/2012 Document Revised: 09/13/2018 Document Reviewed: 07/12/2018 Shozu Patient Education 2020 [employer]u Inc. Follow Up Care 09/14/2022 09:13:06 With:Luis Carlos Jung Address: [address], [facility] [address] [place] [address]- Business (1) When:09/20/2022 Comments:Return if ruptured membranes [...] Education 09/12/2022 20:39:28 Third Trimester of , Bfkg-qy-Trxe Third Trimester of The third trimester is from week 28 through week 40 (months 7 through 9). This trimester is when your unborn baby (fetus) is growing very fast. At the end of the ninth month, the unborn baby is about20 inches in length. It weighs about 6 10 pounds. Follow these instructions at home: Medicines Take nthx-nbf-awdkcbn and prescription medicines only as told by [...] 12/26/2010 Document Revised: 01/22/2020 Document Reviewed: 11/06/2017 Shozu Patient Education 2020 Veracode. Follow Up Care 09/12/2022 19:44:10 With:Luis Carlos Jung Address: [address] [place] [address] [facility] (1) When:09/20/2022 Comments:Appointment has already been scheduledCall Dr if fever>100.5 F, heavy bleedingCall for any problems.Call for severe abdominal painCall physician for heavy vaginal bleedingCall physician if symptoms worsenPlease call if you need to rescheduleReturn for contractions closer, longer, harderReturn for decreased movementReturn if ruptured membranes or vaginal bleeding [facility]11-25-2022 NoteThe following Patient Education Materials have been given to the patient: [facility] Discharge instructions Follow Up Care 09/08/2022 08:14:23 With:Luis Carlos Jung Address: [address] [place] [address]- [facility] (1) When:09/11/2022 Comments:Return for contractions closer, longer, harderReturn for decreased movementReturn if rupturedmembranes or vaginal bleeding [facility]11-23-2022 Hospital Discharge instructions Patient Education 09/05/2022 [...] the coronavirus come from? In September 2019, [place] told the World Health Organization (WHO) of several cases of lung disease (human respiratory illness). These cases were linked to an open seafood and livestock market in the [facility] of [facility]. The link to the seafood and [...] and virus naming World Health Organization (WHO): www.who.int/emergencies/diseases/ofuqt-pvtdojyvnep-8268/technical-g uidance/zxvggy-mdn-dueooqlvaqs-disease-(covid-2019)-auf-qwj-xjmxa-apdr-dqgogr-hz Who is at risk for complications from [...] relieve his or her symptoms by using yjum-ljn-qwlujgk medicines that treat sneezing, coughing, and runny [...] water are not available, use alcohol-based hand medical coding technician. Avoid touching your face, mouth, nose, or [...] Prevention (CDC): www.cdc.gov/coronavirus/2019-ncov/travelers/index.html World Health Organization (WHO): www.who.int/emergencies/diseases/fqgeq-xrusecebjrb-5757/travel-advice Know the risks and take action to [...] water are not available, use alcohol-based hand medical coding technician. Cough or sneeze into a tissue, sleeve, [...] in hot, soapy water or use a motorcycle technician. Air-dry your dishes. Wash laundry in hot [...] Health Organization (WHO) Information and news updates: www.who.int/emergencies/diseases/iohev-tkrvrbyjcgn-6864 Coronavirus health topic: www.who.int/health-topics/coronavirus Questions and answers on COVID-19: www.who.int/news-room/q-a-detail/i-f-iwfdcvaxvazns Global tracker: [employer] [place] [employer] (AAP) Information for families: www.healthychildren.org/Faroese/health-issues/conditions/chest-lungs/Pages /2836-Tymeq-Mwovxxaehme.aspx The coronavirus situation is changing rapidly. Check [...] 01/27/2020 Document Revised: 01/27/2020 Document Reviewed: 01/27/2020 Shozu Patient Education 2019 Veracode. 09/05/2022 22:13:40 COVID-19 COVID-19 COVID-19 is a [...] managed at home with rest, fluids, and rqbo-sjc-tnklsfr medicines. Treatment for a serious infection usually [...] are safe for you. General instructions Take kqvq-wdh-wrnnxsk and prescription medicines only as told by [...] water are not available, usean alcohol-based hand medical coding technician. ?Avoid touching your mouth, face, eyes, or [...] water are not available, use alcohol-based hand medical coding technician. Stay away from other members of your [...] 11/06/2019 Document Revised: 02/26/2020 Document Reviewed: 11/06/2019 Shozu Patient Education 2020 Veracode. Follow Up Care 09/05/2022 20:08:29 With:Luis Carlos Jung Address: [address] [place], [place] [address] [address] Business (1) When:09/08/2022 21:42:10 Comments:Use the albuterol inhaler 2 puffs every 4 hours for the next 2 to 3 days, you can use the Zofran every 6 hours as needed for nausea and vomiting. Please follow-up with your primary care doctor in thenext 2 to 3 days. Please return to the ED for any new or worsening symptoms. With:THANG MILLAN Address: [address] [place] [id number] Business (1) When:09/08/2022 21:42:06 [facility]11-22-2022 Evaluation + Plan noteExtracted from: Title:ED [...] Nausea/Vomiting, # 12 tab(s), Refills(s) 0, Pharmacy: [facility], 163, cm, 09/05/22 20:14:00 [...] Therapy PT & PTT Rapid COVID Antigen ([facility]) Saline Lock Insert Troponin 0 Hr. XR Chest Single View Future Appointments Appointment Date:09/06/2022 07:00:00 AM Scheduled Provider: [facility] Type:Outpatient COVID Testing [facility]11-21-2022 Evaluation + Plan note Diagnostic Tests Pending * Group B Streptococcus colonization by PCR 09/04/22 [facility]11-17-2022 NoteThe following Patient Education Materials have been given to the patient: EducationMateriTiffanie [facility]11-17-2022 Hospital Discharge instructions Patient Education 08/31/2022 00:56:47 Third Trimester of , Vpur-of-Jukz Third Trimester of The third trimester is from week 28 through week 40 (months 7 through 9). This trimester is when your unborn baby (fetus) is growing very fast. At the end of the ninth month, the unborn baby is about20 inches in length. It weighs about 6 10 pounds. Follow these instructions at home: Medicines Take dpax-hqn-ouciagj and prescription medicines only as told by [...] 12/26/2010 Document Revised: 01/22/2020 Document Reviewed: 11/06/2017 Shozu Patient Education 2020 Veracode. Follow Up Care 08/30/2022 21:31:53 With:Luis Carlos Jung Address: [address] [address]- Business (1) When:09/04/2022 Comments:Call for any problems.Call for severe abdominal painCall physician for heavy vaginal bleedingReturnfor contractions closer, longer, harderReturn for decreased movementReturn if ruptured membranes or vaginal bleeding [facility]11-08-2022 Hospital Discharge instructions Follow Up Care 08/22/2022 14:58:59 With:Dr. 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 [facility]11-04-2022 Evaluation + Plan note Diagnostic Tests Pending * Urine Culture 08/18/22 [facility]11-04-2022 Hospital Discharge instructions Follow Up Care 08/18/2022 03:47:49 With:Luis Carlos Jung Address: [address] [address]- Business (1) When:08/21/2022 08:45:00 Comments:Appointment has already been scheduled, please keep scheduled apptCall for any problems.Call physician if symptoms worsen [facility]10-30-2022 Hospital Discharge instructions Patient Education 08/13/2022 [...] 10/31/2007 Document Revised: 10/21/2019 Document Reviewed: 11/09/2016 Shozu Patient Education 2020 [employer] Inc. 08/13/2022 19:55:11 Monitoring Overview Monitoring Overview [...] 09/21/2003 Document Revised: 06/25/2018 Document Reviewed: 04/30/2017 Shozu Patient Education 2020 Elsevier Inc. Follow Up Care 08/13/2022 17:29:42 With:Luis Carlos Jung Address: [address] [place] [phone] Business (1) When:1 to 2 days Comments:Call for any problems.Return for contractions closer, longer, harderReturn for decreased movementReturn if ruptured membranes or vaginal bleeding [facility]10-13-2022 Hospital Discharge instructions Follow Up Care 07/27/2022 01:12:54 With:Dr. Jung [phone] Address:Unknown When:09/24/2022 20:30:00 Comments:Call for any problems.Return if ruptured membranes or vaginal bleedingReturn for decreased movementcontractions every 5 minutes lasting 45 seconds for an hourCall Sunday night at 7:30 PM to assure bed availability for induction [facility]10-12-2022 Hospital Discharge instructions Patient Education 07/26/2022 [...] Follow these instructions at home: Medicines Take iioh-rqz-szeurvk and prescription medicines only as told by [...] as fried or sweet foods. ?Take an mipr-mpv-djddhjt or prescription medicine for constipation. If you [...] 12/28/2009 Document Revised: 05/28/2019 Document Reviewed: 11/11/2018 Shozu Patient Education 2019 Veracode. Follow Up Care 07/26/2022 07:56:25 With:Luis Carlos Jung Address: [address] [address] Business (1) When:08/07/2022 07:45:00 [facility]10-03-2022 Evaluation + Plan noteExtracted from: Title:ED Note Author:Hi Carmona PA-C te:07/17/22 UTI (urinary tract infection ) (N39.0: Urinary tract infection, site not specified) Orders: cephalexin, 500 mg = 1 cap(s), Oral, q12hr, X 5 day(s), # 10 cap(s), Refills(s) 0, Pharmacy: [facility], 162.5, cm, 07/17/22 9:09:00 EDT, Height/Length Dosing, 80, kg, 07/17/22 9:09:00 EDT, Weight Dosing Patient Specific Meds, Each, Misc, Once, Stop date 07/17/22 9:10:34 EDT, Physician Stop, 07/17/22 9:10:34 EDT Influenza A&B Ag Rapid COVID Antigen ([facility]) UA With Cult Reflex [facility]10-03-2022 Hospital Discharge instructions Patient Education 07/17/2022 [...] 01/26/2012 Document Revised: 01/23/2020 Document Reviewed: 09/04/2019 Shozu Patient Education 2020 Veracode. 07/17/2022 09:55:44 Urinary Tract Infection, Adult Urinary [...] Treatment for this condition includes: Antibiotic medicine. Qpao-axj-fehsbem medicines to treat discomfort. Drinking enough water [...] Follow these instructions at home: Medicines Take qoxs-nth-rdeknwx and prescription medicines only as told by [...] 07/11/2006 Document Revised: 09/18/2019 Document Reviewed: 04/10/2019 Shozu Patient Education 2020 Veracode. Follow Up Care 07/17/2022 09:04:38 With:Luis Carlos Jung Address: [address] [place] [address] [address] Business (1) When:07/20/2022 09:46:49 With:THANG MILLAN Address: [address] [place] [address] Business (1) When:07/20/2022 09:46:41 Comments:Follow-up with your primary care provider in 3 to 5 days. If symptoms worsen, do not improve, or new symptoms arise please report back to emergency department for further evaluation. [facility]09-14-2022 Evaluation + Plan note Diagnostic Tests Pending * RPR with Conf Rfx 06/28/22 [facility]09-12-2022 Hospital Discharge instructions Patient Education 06/26/2022 [...] 09/21/2003 Document Revised: 06/25/2018 Document Reviewed: 04/30/2017 Shozu Patient Education 2020 [employer] Inc. 06/26/2022 21:35:59 Form - Movement Counts [...] With:Luis Carlos Jung Address: [address] [place] [address] [place] [address] [facility] (1) When:07/03/2022 07:45:00 Comments:Call for any problems.Please call if you need to rescheduleReturn for decreased movement [facility]09-05-2022 Hospital Discharge instructions Follow Up Care 06/18/2022 23:33:38 With:Luis Carlos Jung Address: [address], [facility] [address] [place] [address]- Business (1) When:5 to 7 days Comments:Appointment has already been scheduledCall for any problems.Call for fever > 100.5 FCall for severe abdominal painCall physician for heavy vaginal bleedingPlease call if you need to rescheduleReturn for contractions closer, longer, harderReturn for decreased movementReturn if ruptured membranes or vaginal bleeding [facility]07-18-2022 Hospital Discharge instructions Follow Up Care 05/01/2022 17:08:54 With:Luis Carlos Jung Address: [address], [facility] [place] [address]- Business (1) When:05/09/2022 Comments:Return if ruptured membranes or vaginal bleedingReturn for contractions closer, longer, harderCall physician if symptoms worsenCall physician for heavy vaginal bleedingCall for severe abdominal painCall for fever > 100.5 FCall for any problems. drink more fluids including gatorade, take milk of magnesia twice /day until yo u have bowel movements, benefiber daily [facility]06-19-2022 Evaluation + Plan note Diagnostic Tests Pending * Urine Culture 04/02/22 [facility]06-19-2022 Hospital Discharge instructions Patient Education 04/02/2022 10:22:48 Second Trimester of , Uzpk-rw-Huxh Second Trimester of The second trimester is [...] Follow these instructions at home: Medicines Take ukpm-prb-vliyegr and prescription medicines only as told by [...] 12/26/2010 Document Revised: 01/23/2020 Document Reviewed: 11/06/2017 [employer] Patient Education 2020 [employer]. 04/02/2022 10:22:48 Vaginal Bleeding During , Second [...] says that this is safe. Medicines Take jtvb-nxe-hyudtki and prescription medicines only as told by [...] 07/11/2006 Document Revised: 01/20/2020 Document Reviewed: 01/03/2018 [employer] Patient Education 2019 [employer]. Follow Up Care 04/02/2022 06:00:26 With:Dr. Jung [phone] Address:Unknown When:2 to 3 days Comments:Call for any problems.Call physician if symptoms worsen [facility]06-09-2022 Hospital Discharge instructions Patient Education 03/23/2022 20:39:21 Second Trimester of , Msaw-uk-Pqom Second Trimester of The second trimester is [...] Follow these instructions at home: Medicines Take ixke-smp-wdnjadg and prescription medicines only as told by [...] 12/26/2010 Document Revised: 01/23/2020 Document Reviewed: 11/06/2017 [employer] Patient Education 2020 [employer]ac[employer]. 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 [...] grounds. You are around people who have Barb[place] measles, fifth disease, or chickenpox. You have [...] 03/19/2009 Document Revised: 01/22/2020 Document Reviewed: 10/09/2017 [employer] Patient Education 2020 [employer]. 03/23/2022 20:39:21 Abdominal Pain During , Tluf-rz-Ggym Abdominal Pain During Belly (abdominal) pain is [...] keep your pee (urine) pale yellow. Take tnxo-ymk-mkgsuuw and prescription medicines only as told by [...] 09/19/2010 Document Revised: 01/19/2020 Document Reviewed: 01/03/2018 [employer] Patient Education 2020 [employer]esting Follow Up Care 03/23/2022 19:35:57 With:Luis Carlos Jung Address: [facility] [place] [id number] [facility] (1) When:03/27/2022 10:00:00 Comments:Call for any problems. Call [facility] first, ask to speak directly to Dr. Jung before heading to hospital unless an emergency. Call for severe abdominal pain or worsening pain.Return if vaginal bleedingor ruptured membranes.Wear belly band as much as possible, especially as your belly grows in . [facility]05-04-2022 Evaluation + Plan note Diagnostic Tests Pending * RPR with Conf Rfx 02/15/22 * HIV Screen 4th Generation wRfx 02/15/22 * Rubella Antibody IgG 02/15/22 * Hepatitis B Surface Antigen 02/15/22 * Urine Culture 02/15/22 [facility]06-18-2021 NoteHNO ID: [id number] Author: Bert Negrete, DO Service: ? 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 [facility]06-10-2021 NoteHNO ID: [id number] Author: RT Oliva(R) Service: Nuclear Medicine Author Type: Scalp Treatment Specialist Type: Progress Notes Filed: 03/24/2021 9:39 AM [...] 0740 PATIENT DISCHARGED TO: Ambulatory patient, left [place] department area. A Diagnostic radioactive procedure has taken place, with no further precautions necessary other than routine body substance precautions. More information regarding radiation safety can be found using this link: [email or web address] SIGNATURE: RT Oliva(R) PATIENT NAME: Susan Bro DATE: March 24, 2021 TIME: 9:38 AM PAGER/CONTACT #:[facility]05-27-2021 NoteHNO ID: [id number] Author: Martha Webb MD Service: ? Author Type: Physician Type: Progress Notes Filed: 03/10/2021 12:03 PM Note Text: This note was created using AttorneyFeer[employer]. 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 When you make an appointment with [facility], it's the start of a long-lasting partnership that's committed to your health. We provide the very best prevention, wellness and illness care, and give you access to the advanced medical services and expert treatment available at [facility]. Please note that the provider listed below is accepting patients in your area. [place]: [address] [place] [address] MD Debby Lala MD Christina Spring [facility] For the most up-to-date information on a care provider in your community, use the Find a Doctor tool on [employer] [facility] * Attachments The [...] section and content) DATE CREATED AUTHOR 04/09/2018 [facility] DATE CREATED AUTHOR AUTHOR'S ORGANIZ ATION 08/10/2020 [facility] DATE CREATED AUTHOR AUTHOR'S ORGANIZ ATION 09/07/2020 [facility] DATE CREATED AUTHOR AUTHOR'S ORGANIZ ATION 10/20/2020 [facility] DATE CREATED AUTHOR AUTHOR'S ORGANIZ ATION 03/18/2021 [facility] DATE CREATED AUTHOR AUTHOR'S ORGANIZ ATION 11/15/2021 [facility] DATE CREATED AUTHOR AUTHOR'S ORGANIZ ATION 08/25/2023 [facility] DATE CREATED AUTHOR AUTHOR'S ORGANIZ ATION 11/07/2023 [facility] EPIC Reason for Visit (unrecogniz ed section and content) Reason Comments Dizziness Reason Comments Knee Pain right knee pain, 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 denies hitting head or any LOC Shoulder Pain rt shoulder, fell ov er dust guzman onto her right side. Susan Griffiths PA-C - 10/14/2020 10:44 AM Amena Cantrell RN - 10/14/2020 10:32 AM EST ED Notes (unrecognized secti on and content) [facility] ED Note: NAME: Susan Bro 24 y.o. CSN: [id number] PCP: Physician No History: Chief Complaint: Dizziness [...] file Gets together: Not on file Attends religion service: Not on file Active member of [...] does have reproducible vertigo with position changes. Wpcgni-ei-awsu maneuvers are intact without dysmetria. There is negative Romberg sign. There was no ataxia on ambulation. Psychiatric: Mood and Affect: Mood normal. Behavior: Behavior normal. Thought Content: Thought content normal. Laboratory & Radiological Imaging (if done): Labs Reviewed URINALYSIS - Abnormal; Notable for the following components: Result Value Clarity, Urine Cloudy (*) Specific [place] 1.028 (*) pH, Urine 8.0 (*) Protein, [...] at the following links: For Healthcare Providers: https://www.fda.gov/media/309683/download For Patients: https://www.fda.gov/media/783420/download HCG URINE, QUALITATIVE - Normal CBC AND DIFFERENTIAL Narrative: The following orders were created for panel order CBC w/ Diff. Procedure Abnormality Status --------- ------ CBC Auto Differential[[id number]] Abnormal Final result Please view results for [...] Antivert. She is referred to follow-up with [facility] or [place] that she does not currently have a [...] needed for dizziness . Susan Griffiths Physicians Medical Billing And Coding Instructor [facility] Emergency Department Susan Griffiths PA-C 10/14/20 1203 Special isolation precautions are in place with signage outside this patient's room. This healthcare manager performs hand hygiene and enters the [...] or prosecute any alcohol or drug abuse patient.[facility] Care Team (unrecognized sect ion and content) Personnel Name: THANG MILLAN CNP Address: [address] [place], [place] [address] Personnel Name: THANG MILLAN CNP Address: [address] [place] [phone] [place] Personnel Name: THANG MILLAN CNP Address: [address] [place] [phone]- [place] Personnel Name: THANG MILLAN CNP Address: [address] [place] [phone]- [place] Personnel Name: THANG MILLAN CNP Address: [address] [place] [phone]- [place] Personnel Name: THANG MILLAN CNP Address: [address] [place] [phone]- Personnel Name: THANG MILLAN CNP Address: [address] [place] [address]- [place] Personnel Name: THANG MILLAN CNP Address: [address] [place] [address]- [place] Personnel Name: THANG MILLAN CNP Address: Address: [address] [place] [address]- [place] Personnel Name: THANG MILLAN CNP Address: Address: [address] [place] [address]- [place] Personnel Name: THANG MILLAN CNP Address: Address: [address] [place] [address]- [place] Personnel Name: THANG MILLAN CNP Address: Address: [address] [place] [phone]- [place] Personnel Name: THANG MILLAN CNP Address: Address: [address] [place] [address]- [place] Personnel Name: THANG MILLAN CNP Address: Address: [address] [place] [address]- [place] Personnel Name: THANG MILLAN CNP Address: Address: [address] [place] [address]- [place] Personnel Name: THANG MILLAN CNP Address: Address: [address] [place] [address]- [place] Personnel Name: THANG MILLAN CNP Address: Address: [address] [place] [address]- [place] Personnel Name: THANG MILLAN CNP Address: Address: [address] [place] [id number] Personnel Name: THANG MILLAN CNP Address: Address: [address] [place] [id number] Personnel Name: THANG MILLAN CNP Address: Address: [address] [place] [phone]- Personnel Name: THANG MILLAN CNP Address: Address: [address] [place] [address] Personnel Name: THANG MILLAN CNP Address: Address: [address] [place] [address] Personnel Name: THANG MILLAN CNP Address: Address: [address] [place] [address]- Personnel Name: THANG MILLAN CNP Address: Address: [address] [place] [address]- Personnel Name: THANG MILLAN CNP Address: Address: [address] [place] [address] Personnel Name: THANG MILLAN CNP Address: Address: [address] [place] [address] Personnel Name: Luis Carlos Jung MD Address: Address: [facility] [address] Personnel Name: Luis Carlos Jung MD Address: Address: [facility] [address] Personnel Name: Luis Carlos Jung MD Address: Address: [facility] [address] Personnel Name: Luis Carlos Jung MD Address: Address: [facility] [address] Personnel Name: Luis Carlos Jung MD Address: Address: [facility] [address] Personnel Name: Rashaun PURVIS DO Address: Address: [address] , [facility] Herminia Lopez[address] Personnel Name: NONE, XXXX Address: Address: [...] BE BASED ON THE PRIMARY CLINICAL RECORDS. [employer] [facility]. provides no warranty or guarantee of the accuracy or completeness of information in this document.
[2023-11-16 09:56] VITALS: BP 121/74; PULSE 101
== END 2023-11-16 10:24 | disposition home or self-care (01) ==
LOC: FBCO 07:39 → FBC 09:48
PROVIDERS: Visit Provider Obstetrics & Gynecology
DX: O36.63X1 Maternal care for excessive fetal growth, third trimester, fetus 1 (principal); O26.843 Uterine size-date discrepancy, third trimester
CPT/HCPCS: 59025

== ENCOUNTER 2023-11-20 07:12 | Outpatient (OUT) | payer OTHER, SELFPAY ==
--- OUTSIDE RECORDS SUMMARY | 2023-11-20 07:16 | XMS_ITS | CCD ---
Author Name Unknown Address [address] [place] [address] Organization [facility] Care Team Providers Care State Auditor Name Role Phone MELISSANKECHI Unavailable Unavaila BAKARI Liriano Attending Unavailable THANG MILLAN Primary Care Unavailable No, Physician Primary Care Provider Unavailerum e NO, PHYSICIAN Primary Care Unavailable REGINE CHOW Admitting Unavailable REGINE CHOW Attending Unavailable Thang Millan Primary Care Provider Unavailable Primary Care Provider UnavailTHANG Mauro Primary Care Physician Luis Carlos Jung Primary Care Physician [phone] Rashaun PURVIS Primary Care Physician NONE, XXXX [...] Unavailable Fabiana, Luis Carlos By[employer] Consulting Unavailable Fabinaa, Luis Carlos [employer] Consult[employer] Unavailable Fabiana, Luis [...] sources) amoxicillin; Translations: [AMOXICILLIN] Drug Allergy [address] [facility] Rep[facility] (20 sources) penicillin; Translations: [PENICILLIN] Drug Allergy [address] [facility] Repository (3 sources) Penicillins; Translations: [PENICILLINS] Propensity to adverse reactions to drug 0 [place], [place] Medications Current Medications Medication Drug Class(es) [...] day(s), # 15 cap(s), Refills(s) 0, Pharmacy: [facility] 1986, 162.6, cm, 05/21/23 20:50:00 EDT, Height/Length Dosing, 75.3, kg, 05/21/23 20:50:00 EDT, Weight Dosing Start Date: 05/21/23 Stop Date: 05/26/23 Status: Ordered Start: 08-18-2022 End: 08-25-2022 take 1 capsule by mouth four times daily Keflex 500 mg Cap 500 mg = 1 cap(s), Oral, QID, X 7 day(s), # 28 cap(s), Refills(s) 0, Pharmacy: [facility] 1985, 162.5, cm, 08/18/22 4:15:00 EDT, Height/Length Dosing, 80, kg, 08/18/22 4:15:00 EDT, Weight Dosing Start Date: 08/18/22 Stop Date: 08/25/22 Status: Ordered Start: 07-17-2022 End: 07-22-2022 take 1 capsule by mouth every twelve hours Keflex 500 mg Cap 500 mg = 1 cap(s), Oral, q12hr, X 5 day(s), # 10 cap(s), Refills(s) 0, Pharmacy: [facility] 1986, 162.5, cm, 07/17/22 9:09:00 EDT, Height/Length Dosing, 80, kg, 07/17/22 9:09:00 EDT, Weight Dosing Start Date: 07/17/22 Stop Date: 07/22/22 Status: Ordered Start: 04-02-2022 End: 04-09-2022 take 1 capsule by mouth four times daily Keflex 500 mg Cap 500 mg = 1 cap(s), Oral, QID, X 7 day(s), # 28 cap(s), Refills(s) 0, Pharmacy: [facility] 1986, 160, cm, 04/02/22 6:28:00 [...] Daily, # 14 tab(s), Refills(s) 0, Pharmacy: [facility] 1986, 162.6, cm, 05/21/23 20:50:00 EDT, Height/Length Dosing, 75.3, kg, 05/21/23 20:50:00 EDT, Weight Dosing Start Date: 05/21/23 Status: Ordered ibuprofen 600 mg oral tablet (11 sources) Nonsteroidal Anti-inflammatory Drug Start: 09-27-2022 take 1 tablet by mouth every six hours ibuprofen 600 mg Tab 600 mg = 1 tab(s), Oral, q6hr, # 15 tab(s), Refills(s) 0, Pharmacy: [facility] 1986, 162.5, cm, 09/24/22 21:51:00 [...] dizziness, # 15 tab(s), Refills(s) 0, Pharmacy: [facility], 163, cm, 11/30/21 7:18:00 EST, Height/Length [...] Nausea/Vomiting, # 12 tab(s), Refills(s) 0, Pharmacy: [facility] 1986, 163, cm, 09/05/22 20:14:00 [...] day(s), # 6 tab(s), Refills(s) 0, Pharmacy: [facility] 1986, 163, cm, 06/28/23 10:39:00 [...] q8hr, # 12 tab(s), Refills(s) 0, Pharmacy: [facility] 1986, 162.6, cm, 05/21/23 20:50:00 [...] AM) Normal Negative [facility] UA Auto SS [place].plasma/[place] .RBC (Bld) [Mass ratio] 0-3 /HPF Normal [...] FT UA Auto SS Urobilinogen Qn (U) 0.6804040 {Rola'U}/dL Normal 0.0 - 1.0 EU/dL FT UA Auto SS WBC Auto Ql (U) 1+ *ABN* (11/04/23 8:05 AM) Invalid Interpretation Code Negative FT UA Auto SS WBC LM.HPF (Urine sed) [#/Area] 6-15 /HPF Invalid Interpretation Code 0-5/HPF FT UA Auto SS T3 Totalon 08-24-2023 T3 [Mass/Vol] 146 ng/dL Invalid Interpretation Code 71-180 [facility] Comment on above: Result Comment: Perf ormed at: [facility] [address] [place], [place] [id number] PhD Caroline [place] Performed By: #### 2 008975, 10939607, 1879505, 42174970, 0458119, 8255966, 74787433 ####[facility] [address] [place] [address] Auto Diffon 08-23-2023 Basophils/100 WBC (Bld) 0.9 % Normal 0.0-2.0 [facility] Comment on above: Order Comment: Order Added by Discern Expert. Performed By: #### 2 441903, 63820808, 7075856, 56913701, 5605626, 0253691, 39517521 ####[facility] [address] [place] [address] Basophils/Leukocytes Auto (Bld) [Pure # fraction] 0.1 E9/L Normal 0.0-0.2 [facility] Comment on above: Order Comment: Order Added by Discern Expert. Performed By: #### 2 763695, 60877699, 7895161, 27264326, 9295158, 0312982, 64136967 ####[facility] [address] [place] [address] Eosinophils/100 WBC (Bld) 1.3 % Normal 0.0-8.0 [facility] Comment on above: Order Comment: Order Added by Discern Expert. Performed By: #### 2 770894, 40157286, 6281745, 23978146, 5954502, 9437408, 22689324 ####[address] [address] Eosinophils/Leukocytes Auto (Bld) [Pure # fraction] 0.1 E9/L Normal 0.0-0.5 [facility] Comment on above: Order Comment: Order Added by Discern Expert. Performed By: #### 2 393445, 90368954, 3872712, 10778465, 8692332, 5077965, 26464888 ####[address] [address] Lymphocytes/100 WBC (Bld) 17.7 % Normal 14.0-50.0 [facility] Comment on above: Order Comment: Order Added by Discern Expert. Performed By: #### 2 978749, 66945518, 8416176, 19876722, 7213472, 4994902, 42693445 ####[address] [place] [address] Lymphocytes/Leukocytes Auto (Bld) [Pure # fraction] 1.4 E9/L Normal 1.0-4.0 [facility] Comment on above: Order Comment: Order Added by Discern Expert. Performed By: #### 2 591996, 87238353, 1327959, 23121161, 5700471, 6220945, 59085583 ####[address] [place] [address] Monocytes/100 WBC (Bld) 5.1 % Normal 4.0-14.0 [facility] Comment on above: Order Comment: Order Added by Discern Expert. Performed By: #### 2 832499, 87136283, 7962885, 52763614, 7595544, 3202729, 60725871 ####[address] [address] Monocytes/Leukocytes Auto (Bld) [Pure # fraction] 0.4 E9/L Normal 0.2-1.0 [facility] Comment on above: Order Comment: Order Added by Discern Expert. Performed By: #### 2 178835, 34623466, 1858670, 32683762, 8802789, 9530177, 40741302 ####[address] [address] Neutrophils/100 WBC (Bld) 75.0 % Normal 36.0-75.0 [facility] Comment on above: Order Comment: Order Added by Discern Expert. Performed By: #### 2 508049, 34795254, 8401472, 48138124, 2383526, 5127540, 62181963 ####[address] [address] Neutrophils/Leukocytes Auto (Bld) [Pure # fraction] 5.8 E9/L Normal 2.0-7.5 [facility] Comment on above: Order Comment: Order Added by Discern Expert. Performed By: #### 2 668044, 95822936, 5100443, 02284444, 2145900, 2665685, 41424713 ####[address] [place] [address] CBC w/ Auto Diffon 3 Erythrocyte distribution width (RBC) [Ratio] 14.5 % High 10.9-14.2 [facility] Comment on above: Performed By: #### 2 236086, 91863864, 3375852, 07179465, 5191644, 3902951, 04431415 ####[facility] [address] [place] [address] Hematocrit (Bld) [Volume fraction] 36.4 % Normal 34.0-46.0 [facility] Comment on above: Performed By: #### 2 259529, 27234061, 5459253, 46556404, 7628619, 0489111, 76252085 ####[facility] [address] [place] [address] Hemoglobin (Bld) [Mass/Vol] 12.1 g/dL Normal 12.0-16.0 [facility] Comment on above: Performed By: #### 2 986546, 47141983, 5692804, 63249668, 1740827, 4787051, 48549150 ####[address] [place] [address] MCH (RBC) [Entitic mass] 30.2 pg Normal 27.0-34.0 [facility] Comment on above: Performed By: #### 2 905765, 41931378, 2553468, 84748963, 2512190, 1066486, 18447636 ####[facility] [address] [place], [place] [address] MCHC (RBC) [Mass/Vol] 33.3 g/dL Normal 31.4-36.0 [facility] Comment on above: Performed By: #### 2 895295, 15613402, 3792569, 85363712, 3345986, 7165045, 35871887 ####[facility] [address] [place] [address] MCV (RBC) [Entitic vol] 90.8 fL Normal 80.0-100.0 [facility] Comment on above: Performed By: #### 2 804563, 61579318, 4558888, 35504339, 9102796, 1322862, 03231077 ####[facility] [address] [place] [address] Platelet mean volume (Bld) [Entitic vol] 9.7 fL Normal 6.4-10.8 [facility] Comment on above: Performed By: #### 2 909612, 32922012, 2815682, 67511135, 5030651, 3808765, 54781857 ####[facility] [address] [place] [address] Platelets (Bld) [#/Vol] 270.0 E9/L Normal 150.0-500.0 [facility] Comment on above: Performed By: #### 2 376841, 33425546, 6739416, 05561487, 4439814, 7643171, 56081284 ####[facility] [address] [place] [address] RBC (Bld) [#/Vol] 4.0 E12/L Low 4.3-5.9 [facility] Comment on above: Performed By: #### 2 749287, 23100134, 3549609, 59618825, 4771320, 1996485, 27205237 ####[facility] [address] [place] [address] WBC corrected for nucl RBC Auto (Bld) [#/Vol] 7.7 E9/L Normal 4.0-11.0 [facility] Comment on above: Performed By: #### 2 765923, 39619488, 8222229, 32985388, 6849006, 6243957, 10110619 ####[facility] [address] [place] [address] CHEMISTRYOrdered By: SYSTEM SYSTEM on 08-23-2023 Albumin [...] 125 mL/min/1.73 m2 Normal >=59mL/min/ 1.73 m2 [facility] Chem S Comment on above: Interpretive Data: [...] 08-23-2023 Albumin [Mass/Vol] 2.8 g/dL Low 3.3-5.0 [facility] Comment on above: Performed By: #### 2 093216, 52797087, 2825294, 82695393, 0705010, 3367965, 54161997 ####[facility] [address] [place] [address] Albumin/Globulin (S) [Mass conc ratio] 0.7 Low 1.1-2.2 [facility] Comment on above: Performed By: #### 2 224629, 27590624, 7250445, 37572410, 9300655, 0052069, 34929071 ####[facility] [address] [place] [address] ALP [Catalytic activity/Vol] 49 Int._Unit/L Normal 21-98 [facility] Comment on above: Performed By: #### 2 673572, 09603949, 9414848, 06125847, 2834006, 5422133, 82950375 ####[facility] [address] [place] [address] ALT No additional P-5'-P [Catalytic activity/Vol] 15 Int._Unit/L Normal 6-46 [facility] Comment on above: Performed By: #### 2 054841, 62192120, 5238741, 32143777, 9715100, 1504708, 13515234 ####[facility] [address] [place] [address] Anion gap [Moles/Vol] 12 mmol/L Normal 6-16 [facility] Comment on above: Performed By: #### 2 292737, 99580394, 6577688, 91186563, 4257214, 4479235, 47621079 ####[facility] [address] [place] [address] AST [Catalytic activity/Vol] 17 Int._Unit/L Normal 5-43 [facility] Comment on above: Performed By: #### 2 330717, 43761466, 5500966, 17497151, 3148036, 9140908, 58647427 ####[address] [place] [address] Bilirubin [Mass/Vol] 0.5 mg/dL Normal 0.0-1.1 [facility] Comment on above: Performed By: #### 2 965053, 80453263, 5013817, 03321230, 7714648, 6801950, 19308518 ####[address] [place] [address] Calcium [Mass/Vol] 8.8 mg/dL Low 8.9-11.1 [facility] Comment on above: Performed By: #### 2 459496, 18194943, 6250269, 25093020, 9923665, 3295830, 17960855 ####[facility] [address] [place] [address] Chloride [Moles/Vol] 108 mmol/L Normal 101-111 [facility] Comment on above: Performed By: #### 2 420022, 46607145, 1710876, 80676208, 6610322, 3191822, 13265351 ####[facility] [address] [place] [address] CO2 [Moles/Vol] 22 mmol/L Normal 21-31 [facility] Comment on above: Performed By: #### 2 705401, 78057652, 0210202, 11583244, 3611554, 6031320, 37101691 ####[facility] [address] [place] [address] Creatinine [Mass/Vol] 0.6 mg/dL Normal 0.5-1.3 [facility] Comment on above: Performed By: #### 2 275964, 03757506, 9875114, 26617185, 4391197, 9254600, 68941698 ####[facility] [address] [place] [address] Globulin (S) [Mass/Vol] 3.8 g/dL Normal 1.4-4.0 [facility] Comment on above: Performed By: #### 2 634450, 66091789, 7243437, 70943650, 4023573, 8960953, 77671879 ####[facility] [address] [place] [address] Glucose [Mass/Vol] 88 mg/dL Normal 55-199 [facility] Comment on above: Result Comment: If t his glucose result represents a fasting glucose, interpretation should refer to the following reference range: 55-99 mg/dL Performed By: #### 2 073561, 75004141, 2183117, 30679512, 4771062, 6958987, 66958445 ####[facility] [address] [place] [address] Potassium [Moles/Vol] 3.5 mmol/L Normal 3.5-5.3 [facility] Comment on above: Performed By: #### 2 694344, 91509247, 7031343, 97663210, 9271705, 5943709, 31185248 ####[facility] [address] [place] [address] Protein [Mass/Vol] 6.6 g/dL Normal 6.0-7.8 [facility] Comment on above: Performed By: #### 2 961985, 91896856, 9367004, 55102812, 9301574, 1263006, 52843404 ####[facility] [address] [place] [address] Sodium [Moles/Vol] 138 mmol/L Normal 135-145 [facility] Comment on above: Performed By: #### 2 100605, 44073165, 5061130, 47504576, 4964850, 6510251, 82570142 ####[facility] [address] [place] [address] Urea nitrogen [Mass/Vol] 7 mg/dL Normal 5-21 [facility] Comment on above: Performed By: #### 2 006334, 20113444, 5248970, 35751329, 9791159, 8410482, 53437848 ####[facility] [address] [place] [address] Urea nitrogen/Creatinine [Mass ratio] 12 No Units Normal 10-20 [facility] Comment on above: Performed By: #### 2 933621, 69156470, 9811929, 52678292, 5851882, 9311270, 38091835 ####[facility] [address] [place] [address] HEMATOLOGYOrdered By: SYSTEM SYSTEM on 08-23-2023 Basophils/100 [...] 08-23-2023 Cholesterol [Mass/Vol] 238 mg/dL High 120-200 [facility] Comment on above: Performed By: #### 2 278819, 72022896, 3903791, 78803293, 1437705, 4820382, 39030897 ####[facility] [address] [place] [address] Cholesterol in HDL [Mass/Vol] 64 mg/dL Invalid Interpretation Code [facility] Comment on above: Result Comment: HDL > or equal to 60 mg/dL: Low cardiovascular riskHDL < 40 mg/dL : High cardiovascular risk Performed By: #### 2 873643, 16508040, 4355091, 99407776, 2665552, 8706461, 25193082 ####[facility] [address] [place] [address] Cholesterol in LDL [Mass/Vol] 146 mg/dL High <=129 [facility] Comment on above: Performed By: #### 2 635145, 27266354, 9095998, 18024531, 3583675, 3794958, 53856427 ####[facility] [address] [place] [address] Cholesterol in VLDL [Mass/Vol] 33 mg/dL Normal 7-40 [facility] Comment on above: Performed By: #### 2 963392, 25857257, 9948227, 83541480, 3007834, 3230409, 12473392 ####[facility] [address] [place] [address] Triglyceride [Mass/Vol] 164 mg/dL High <=149 [facility] Comment on above: Performed By: #### 2 346070, 07805106, 7173217, 19693473, 1895833, 4898915, 36353663 ####[facility] [address] [place] [address] Physician Orderon 08-23-2023 Physician Order [id number]#1.00TIFF Normal [facility] T4 & TSHon 08-23-2023 T4 [Mass/Vol] 11.8 microgram/dL High 4.6-9.1 [facility] Comment on above: Performed By: #### 2 043479, 73041675, 1807674, 24020834, 1179926, 8441445, 84610229 ####[facility] [address] [place] [address] TSH Qn 3.61 m[IU]/L Normal 0.34-5.60 [facility] Comment on above: Performed By: #### 2 937912, 98651933, 8188618, 60664273, 6377724, 4253344, 91871786 ####[facility] [address] [place] [address] eGFRon 08-23-2023 GFR/1.73 sq M.predicted among non-blacks MDRD (S/P/Bld) [Vol rate/Area] 125 mL/min/1.73 m2 Normal >=59 [facility] Comment on above: Order Comment: Order added by Discern Expert. Result Comment: [employer] lucy kidney disease could be indicated at eGFR's of less than 60 mL/min/1.73m2. Kidney failure is indicated at less than 15 mL/min/1.73m2. Performed By: #### 2 854350, 60799397, 6832838, 41597662, 0401230, 1731606, 95412671 ####[facility] [address] [place] [address] Nursing Assessmenton 023 Nursing Assessment [id number]#1.00TIFF Normal [facility] Consent for Treatmenton Consent for Treatment [id number]#1.00TIFF Normal [facility] Discharge Instructionson Discharge Instructions [id number]#1.00TIFF Normal [facility] Inpatient Clinical Summaryon 08-18-2023 Inpatient Clinical Summary Normal [facility] Inpatient Patient Summaryon 08-18-2023 Inpatient Patient Summary Normal [facility] Insurance Correspondenceon 1 10-18-2022 Insurance Correspondence [id number]#1.00TIFF Normal [facility] Vaccinationson 08-18-2023 Vaccinations [id number]#1.00TIFF Normal [facility] C Urineon 07-27-2023 Bacteria identified Cx Nom (U) Normal [facility] Comment on above: Performed By: #### 2 566856, 42553436 ####[facility] [address] [place] [address] ABO/Rhon 07-25-2023 ABO/Rh Positive Invalid Interpretation Code [facility] Comment on above: Performed By: #### 2 854062 ####[facility] [address] [place] [address] Auto Diffon 07-25-2023 Basophils/100 WBC (Bld) 1.1 % Normal 0.0-2.0 [facility] Comment on above: Order Comment: Order Added by Discern Expert. Performed By: #### 1 4114533, 7276425, 5525730, 8865126, 5039497, 4477216 ####[facility] [address] [place] [address] Basophils/Leukocytes Auto (Bld) [Pure # fraction] 0.1 E9/L Normal 0.0-0.2 [facility] Comment on above: Order Comment: Order Added by Discern Expert. Performed By: #### 1 6645606, 7588250, 9339182, 0780365, 9589881, 9045392 ####[facility] [address] [place] [address] Eosinophils/100 WBC (Bld) 1.2 % Normal 0.0-8.0 [facility] Comment on above: Order Comment: Order Added by Discern Expert. Performed By: #### 1 5964242, 0650727, 7284653, 9274576, 6207869, 3186952 ####[facility] [address] [place] [address] Eosinophils/Leukocytes Auto (Bld) [Pure # fraction] 0.1 E9/L Normal 0.0-0.5 [facility] Comment on above: Order Comment: Order Added by Gisselle Expert. Performed By: #### 1 5293254, 7322385, 4842962, 9023488, 6694523, 4522557 ####[facility] [address] [place] [address] Lymphocytes/100 WBC (Bld) 23.7 % Normal 14.0-50.0 [facility] Comment on above: Order Comment: Order Added by Discern Expert. Performed By: #### 1 1069184, 7688708, 2641467, 2201125, 8901752, 3368556 ####[address] [place] [address] Lymphocytes/Leukocytes Auto (Bld) [Pure # fraction] 1.4 E9/L Normal 1.0-4.0 [facility] Comment on above: Order Comment: Order Added by Gisselle Expert. Performed By: #### 1 3718398, 6095981, 6220950, 1208025, 6036934, 8529653 ####[address] [place] [address] Monocytes/100 WBC (Bld) 6.7 % Normal 4.0-14.0 [facility] Comment on above: Order Comment: Order Added by Gisselle Expert. Performed By: #### 1 5985891, 5432764, 9161866, 7736929, 2991160, 7076934 ####[address] [address] Monocytes/Leukocytes Auto (Bld) [Pure # fraction] 0.4 E9/L Normal 0.2-1.0 [facility] Comment on above: Order Comment: Order Added by Gisselle Expert. Performed By: #### 1 2865763, 4858550, 6429713, 0308810, 7248165, 3694401 ####[address] [place] [address] Neutrophils/100 WBC (Bld) 67.3 % Normal 36.0-75.0 [facility] Comment on above: Order Comment: Order Added by Discern Expert. Performed By: #### 1 5749760, 6488370, 9332932, 4124922, 8265006, 2764344 ####[facility] [address] [place] [address] Neutrophils/Leukocytes Auto (Bld) [Pure # fraction] 4.0 E9/L Normal 2.0-7.5 [facility] Comment on above: Order Comment: Order Added by Discern Expert. Performed By: #### 1 6577917, 1010918, 2575565, 0175660, 4524060, 7632203 ####[facility] [address] [place] [address] BLOOD BANKOrdered By: An Lassiter on 07-25-2023 ABO/Rh Interp Positive Invalid Interpretation Code [facility] BB Subsection BMPon 07-25-2023 Creatinine [Mass/Vol] 0.6 mg/dL Normal 0.5-1.3 [facility] Comment on above: Performed By: #### 1 6280528, 3331865, 1275808, 3557956, 3762095, 1558314 ####[facility] [address] [place] [address] Urea nitrogen [Mass/Vol] 6 mg/dL Normal 5-21 [facility] Comment on above: Performed By: #### 1 9312333, 9934284, 8079482, 3598955, 1329710, 7838360 ####[facility] [address] [place] [address] Urea nitrogen/Creatinine [Mass ratio] 10 No Units Normal 10-20 [facility] Comment on above: Performed By: #### 1 1232333, 8632452, 9559163, 0986491, 1252655, 8713813 ####[facility] [address] [place] [address] Anion gap [Moles/Vol] 2 mmol/L Low 6-16 [facility] Comment on above: Performed By: #### 1 0449710, 2631959, 2673179, 6737694, 6906415, 6779157 ####[facility] [address] [place] [address] Calcium [Mass/Vol] 8.6 mg/dL Low 8.9-11.1 [facility] Comment on above: Performed By: #### 1 4510044, 1079861, 8237562, 7677575, 2681828, 7238052 ####[facility] [address] [place] [address] Chloride [Moles/Vol] 107 mmol/L Normal 101-111 [facility] Comment on above: Performed By: #### 1 1589062, 5232923, 3634602, 8643259, 5336725, 9410468 ####[facility] [address] [place] [address] CO2 [Moles/Vol] 27 mmol/L Normal 21-31 [facility] Comment on above: Performed By: #### 1 6381365, 7153977, 8800429, 0305775, 5869787, 0019942 ####[facility] [address] [place] [address] Glucose [Mass/Vol] 73 mg/dL Normal 55-199 [facility] Comment on above: Result Comment: If t his glucose result represents a fasting glucose, interpretation should refer to the following reference range: 55-99 mg/dL Performed By: #### 1 0173436, 4939082, 6039024, 3378058, 3263542, 5063711 ####[facility] [address] [place] [address] Potassium [Moles/Vol] 3.9 mmol/L Normal 3.5-5.3 [facility] Comment on above: Performed By: #### 1 4906395, 8479788, 2957493, 4181603, 0821752, 0095027 ####[facility] [address] [place] [address] Sodium [Moles/Vol] 132 mmol/L Low 135-145 [facility] Comment on above: Performed By: #### 1 7250871, 7532770, 0690266, 5385195, 7945152, 6051050 ####[facility] [address] [place] [address] BhCG Quanton 07-25-2023 [place] [address] m[IU]/mL High 1-3 [facility] Comment on above: Result Comment: GEST ATIONAL AGE HCG RANGE (mIU/mL) NON- <1-3 0.2-1 WEEKS 5-50 1-2 WEEKS 50-500 2-3 WEEKS 100-5,000 3-4 WEEKS 500-10,000 4-5 WEEKS 1,000-50,000 5-6 WEEKS 10,000-100,000 6-8 WEEKS 15,000-200,000 8-12 WEEKS 10,000-100,000 Performed By: #### 2 519030 ####[address] [address] CBC w/ Auto Diffon Erythrocyte distribution width (RBC) [Ratio] 14.0 % Normal 10.9-14.2 [facility] Comment on above: Performed By: #### 1 3603870, 6385175, 3168107, 1406641, 3617902, 8873887 ####[address] [place] [address] Hematocrit (Bld) [Volume fraction] 37.1 % Normal 34.0-46.0 [facility] Comment on above: Performed By: #### 1 8365339, 5949338, 3104694, 0038323, 1218054, 8659342 ####[address] [place] [address] Hemoglobin (Bld) [Mass/Vol] 12.5 g/dL Normal 12.0-16.0 [facility] Comment on above: Performed By: #### 1 4973914, 0358343, 0876076, 7862562, 1444187, 5545085 ####[facility] [address] [place] [address] MCH (RBC) [Entitic mass] 29.9 pg Normal 27.0-34.0 [facility] Comment on above: Performed By: #### 1 5699467, 1056652, 7299620, 0419273, 8918034, 1767338 ####[address] [place] [address] MCHC (RBC) [Mass/Vol] 33.8 g/dL Normal 31.4-36.0 [facility] Comment on above: Performed By: #### 1 0154733, 1044248, 5512637, 1677191, 3455610, 6088580 ####[address] [address] MCV (RBC) [Entitic vol] 88.4 fL Normal 80.0-100.0 [facility] Comment on above: Performed By: #### 1 4935014, 9965854, 5629669, 1648011, 4893770, 9818104 ####[address] [address] Platelet mean volume (Bld) [Entitic vol] 7.9 fL Normal 6.4-10.8 [facility] Comment on above: Performed By: #### 1 2437429, 4458246, 9125565, 0924242, 9263690, 5442292 ####[address] [address] Platelets (Bld) [#/Vol] 261.0 E9/L Normal 150.0-500.0 [facility] Comment on above: Performed By: #### 1 4687478, 5522378, 5040053, 8859651, 1261174, 9995116 ####[address] [address] RBC (Bld) [#/Vol] 4.2 E12/L Low 4.3-5.9 [facility] Comment on above: Performed By: #### 1 0936264, 2491299, 0676894, 8812092, 5314517, 9356834 ####[address] [address] WBC corrected for nucl RBC Auto (Bld) [#/Vol] 5.9 E9/L Normal 4.0-11.0 [facility] Comment on above: Performed By: #### 1 8711027, 1431544, 7017903, 4319000, 7047024, 9975251 ####[facility] [address] [place] [address] CHEMISTRYOrdered By: SYSTEM SYSTEM on 07-25-2023 Albumin [...] 125 mL/min/1.73 m2 Normal >=59mL/min/ 1.73 m2 [facility] Chem S Comment on above: Interpretive Data: [...] reference range: 55-99 mg/[place] [address] m[IU]/mL High 1 - 3 mIU/mL FT [...] 132 mmol/L Low 135 - 145 mmol/L [facility] Remisol Urea nitrogen [Mass/Vol] 6 mg/dL Normal 5 - 21 mg/dL [facility] Remisol Urea nitrogen/Creatinine [Mass ratio] 10 mg/mg Normal 10 - 20 FT Remisol Consent for Treatmenton 07-15 Consent for Treatment [id number] [facility] Discharge Instructionson Discharge Instructions [id number]#[id number] Normal [facility] ED Clinical Summaryon 2022 ED Clinical Summary Normal Vika onofre [facility] ED Note-Physicianon 07-25-20 ED Note-Physician Normal [facility] Comment on above: Result Comment: Elec tronically Signed By: Jorge Velarde PA-C\.br\Date and Time Signed: 07/25/23 10:02 EDT\.br\Electronically Co-Signed By: Kristian Guillermo DO\.br\Date and Time Co-Signed: 07/25/23 20:25 EDT ED Patient Education Noteon 07-25-2023 ED Patient Education Note Normal [facility] ED Patient Summaryon ED Patient Summary Normal [facility] HEMATOLOGYOrdered By: SYSTEM SYSTEM on 07-25-2023 [...] Bilirubin.indirect [Mass or moles/Vol] UTC Abnormal 0.1-0.9 [facility] Comment on above: Result Comment: Resu lt verified by Discern Rule. Performed result UTC (Unable to Calculate) was sent as an Alpha code due the inability to calculate a valid numeric value. Performed By: #### 1 9577578, 0218559, 9882241, 5244665, 9684048, 2350003 ####[facility] [address] [place] [address] Albumin [Mass/Vol] 3.1 g/dL Low 3.3-5.0 [facility] Comment on above: Performed By: #### 1 7281102, 0163852, 0368770, 5979967, 5064031, 2442678 ####[facility] [address] [place] [address] Albumin/Globulin (S) [Mass conc ratio] 0.9 Low 1.1-2.2 [facility] Comment on above: Performed By: #### 1 5752907, 7964838, 9139498, 9725455, 5727177, 0786470 ####[address] [place] [address] ALP [Catalytic activity/Vol] 35 Int._Unit/L Normal 21-98 [facility] Comment on above: Performed By: #### 1 1870448, 9507119, 4145965, 8170300, 9365012, 0596621 ####[address] [place] [address] ALT No additional P-5'-P [Catalytic activity/Vol] 10 Int._Unit/L Normal 6-46 [facility] Comment on above: Performed By: #### 1 2203199, 6648250, 0920800, 4676784, 2323235, 2544008 ####[address] [address] AST [Catalytic activity/Vol] 18 Int._Unit/L Normal 5-43 [facility] Comment on above: Performed By: #### 1 3806739, 5111311, 8143499, 7693400, 1826606, 6000397 ####[address] [place] [address] Bilirubin [Mass/Vol] 0.4 mg/dL Normal 0.0-1.1 [facility] Comment on above: Performed By: #### 1 3359821, 8207318, 1214101, 8023454, 7239255, 6877593 ####[address] [place] [address] Globulin (S) [Mass/Vol] 3.6 g/dL Normal 1.4-4.0 [facility] Comment on above: Performed By: #### 1 8814205, 4327856, 1388442, 2972221, 9486996, 0010165 ####[facility] [address] [place] [address] Protein [Mass/Vol] 6.7 g/dL Normal 6.0-7.8 [facility] Comment on above: Performed By: #### 1 2862352, 8072567, 7976402, 2110510, 2146723, 8957246 ####[facility] [address] [place] [address] Bilirubin.direct [Mass/Vol] mg/dL Normal 0.1-0.4 [facility] Comment on above: Performed By: #### 1 8275704, 5803574, 9622411, 1902945, 1792930, 1675293 ####[facility] [address] [place] [address] Lipase Levelon 07-25-2023 Lipase [Catalytic activity/Vol] 28 U/L Normal 13-58 [facility] Comment on above: Performed By: #### 1 8429909, 9453991, 7579310, 1274519, 4529130, 0269026 ####[facility] [address] [place] [address] UA With Cult Reflexon 2022 Bacteria LM Ql (Urine sed) TRACE Normal Trace [facility] Comment on above: Performed By: #### 2 661244, 14865699 ####[facility] [address] [place] [address] Bilirubin Ql (U) Negative Normal Negative [facility] Comment on above: Performed By: #### 2 824828, 87320798 ####[facility] [address] [place] [address] Clarity (U) SL CLOUDY Abnormal Clear [facility] Comment on above: Performed By: #### 2 825308, 05918044 ####[facility] [address] [place] [address] Color (U) YELLOW Normal Yellow [facility] Comment on above: Performed By: #### 2 464071, 43432513 ####[facility] [address] [address] Epithelial cells.squamous LM.HPF (Urine sed) [#/Area] 0-2 Normal 0-2 [facility] Comment on above: Performed By: #### 2 303998, 32623923 ####[facility] [address] [place] [address] Glucose Test strip (U) [Mass/Vol] Negative Normal Negative [facility] Comment on above: Performed By: #### 2 180813, 00126827 ####[address] [address] Hemoglobin Ql (U) Negative Normal Negative [facility] Comment on above: Performed By: #### 2 025030, 26007107 ####[address] [address] Ketones (U) [Mass/Vol] Negative Normal Negative [facility] Comment on above: Performed By: #### 2 002424, 55584168 ####[address] [address] [place].plasma/[place] .RBC (Bld) [Mass ratio] 0-3 Normal 0-3 [facility] Comment on above: Performed By: #### 2 336361, 89216726 ####[address] [address] Nitrite Ql (U) Negative Normal Negative [facility] Comment on above: Performed By: #### 2 916483, 94768836 ####[address] [address] pH (U) 7.5 [pH] Invalid Interpretation Code 5.0-9.0 [facility] Comment on above: Performed By: #### 2 475850, 00018997 ####[address] [place] [address] Protein (U) [Mass/Vol] Negative Normal Negative [facility] Comment on above: Performed By: #### 2 053724, 81704164 ####[facility] [address] [place] [address] Specific gravity (U) [Rel density] 1.010 Invalid Interpretation Code 1.005-1.030 [facility] Comment on above: Performed By: #### 2 854168, 01710065 ####[place] [address] Type of Urine collection method Clean Catch Normal [facility] Comment on above: Performed By: #### 2 433033, 70340307 ####[facility] [address] [place] [address] Urobilinogen Qn (U) 1.0 {Rola'U}/dL Normal 0.0-1.0 [facility] Comment on above: Performed By: #### 2 086704, 85478831 ####[place] [address] WBC Auto Ql (U) 2+ Abnormal Negative [facility] Comment on above: Performed By: #### 2 114179, 48499846 ####[facility] [address] [place] [address] WBC LM.HPF (Urine sed) [#/Area] 0-5 Normal 0-5 [facility] Comment on above: Performed By: #### 2 047044, 24585984 ####[place] [address] URINALYSISOrdered By: Emy Aiken on 07-25-2023 Bacteria [...] AM) Normal Negative [facility] UA Auto SS [place].plasma/[place] .RBC (Bld) [Mass ratio] 0-3 /HPF Normal [...] [facility] UA Auto SS Urobilinogen Qn (U) 1.0892941 {Rola'U}/dL Normal 0.0 - 1.0 EU/dL [facility] UA Auto SS WBC Auto Ql (U) 2+ *ABN* (07/25/23 8:33 AM) Invalid Interpretation Code Negative [facility] UA Auto SS WBC LM.HPF (Urine sed) [#/Area] 0-5 /HPF Normal 0-5/HPF [facility] UA Auto SS US Limitedon 07-25 US Limited Normal [facility] eGFRon 07-25-2023 GFR/1.73 sq M.predicted among non-blacks MDRD (S/P/Bld) [Vol rate/Area] 125 mL/min/1.73 m2 Normal >=59 [facility] Comment on above: Order Comment: Order added by Discern Expert. Result Comment: [employer] lucy kidney disease could be indicated at eGFR's of less than 60 mL/min/1.73m2. Kidney failure is indicated at less than 15 mL/min/1.73m2. Performed By: #### 1 6981006, 7107030, 1234698, 2745451, 8915635, 8739729 ####[facility] [address] [place] [address] C Urineon 06-30-2023 Bacteria identified Cx Nom (U) Normal [facility] Comment on above: Performed By: #### 2 975585 ####[facility] [address] [place] [address] Family Medicine Office/Clini c Noteon 06-28-2023 Family Medicine Office/Clinic Note Normal [facility] Comment on above: Result Comment: Elec tronically Signed By: Татьяна NICHOLS, Roverto Barron\.br\Date and Time Signed: 06/28/23 11:41 EDT Patient Educationon 06-28-20 Patient Education Normal [facility] ABO/Rhon 06-14-2023 ABO/Rh Positive Invalid Interpretation Code [facility] Comment on above: Performed By: #### 2 318720 ####[facility] [address] [place] [address] Auto Diffon 06-14-2023 Basophils/100 WBC (Bld) 0.8 % Normal 0.0-2.0 [facility] Comment on above: Order Comment: Order Added by Discern Expert. Performed By: #### 2 456019, 3180986, 7178195, 5705969, 3288268, 93616331 ####[facility] [address] [place] [address] Basophils/Leukocytes Auto (Bld) [Pure # fraction] 0.0 E9/L Normal 0.0-0.2 [facility] Comment on above: Order Comment: Order Added by Discern Expert. Performed By: #### 2 994756, 9354010, 7393907, 0305044, 3182512, 94880713 ####[facility] [address] [place] [address] Eosinophils/100 WBC (Bld) 1.9 % Normal 0.0-8.0 [facility] Comment on above: Order Comment: Order Added by Discern Expert. Performed By: #### 2 722333, 7948586, 3673751, 4470960, 6780877, 70191091 ####[facility] [address] [place] [address] Eosinophils/Leukocytes Auto (Bld) [Pure # fraction] 0.1 E9/L Normal 0.0-0.5 [facility] Comment on above: Order Comment: Order Added by Discern Expert. Performed By: #### 2 093861, 6773280, 3349112, 1488337, 4563113, 58192529 ####[address] [place] [address] Lymphocytes/100 WBC (Bld) 24.5 % Normal 14.0-50.0 [facility] Comment on above: Order Comment: Order Added by Discern Expert. Performed By: #### 2 020812, 4138045, 4659209, 3687190, 6531766, 41886176 ####[address] [address] Lymphocytes/Leukocytes Auto (Bld) [Pure # fraction] 1.3 E9/L Normal 1.0-4.0 [facility] Comment on above: Order Comment: Order Added by Discern Expert. Performed By: #### 2 888862, 5011101, 2608063, 2110421, 3052898, 74040729 ####[address] [place] [address] Monocytes/100 WBC (Bld) 7.8 % Normal 4.0-14.0 [facility] Comment on above: Order Comment: Order Added by Discern Expert. Performed By: #### 2 398712, 2749706, 7911741, 2852615, 4292692, 35984724 ####[address] [place] [address] Monocytes/Leukocytes Auto (Bld) [Pure # fraction] 0.4 E9/L Normal 0.2-1.0 [facility] Comment on above: Order Comment: Order Added by Discern Expert. Performed By: #### 2 449152, 9557419, 6632659, 3544826, 2360755, 91773161 ####[facility] [address] [place] [address] Neutrophils/100 WBC (Bld) 65.0 % Normal 36.0-75.0 [facility] Comment on above: Order Comment: Order Added by Discern Expert. Performed By: #### 2 622846, 9020904, 8267342, 0884768, 6186723, 47119826 ####[facility] [address] [place] [address] Neutrophils/Leukocytes Auto (Bld) [Pure # fraction] 3.5 E9/L Normal 2.0-7.5 [facility] Comment on above: Order Comment: Order Added by Discern Expert. Performed By: #### 2 826653, 2043870, 7791419, 5953859, 2969728, 70987145 ####[facility] [address] [place] [address] BLOOD BANKOrdered By: Keila Kumar on 06-14-2023 ABO/Rh Interp Positive Invalid Interpretation Code [facility] BB Subsection BMPon 06-14-2023 Creatinine [Mass/Vol] 0.5 mg/dL Normal 0.5-1.3 [facility] Comment on above: Performed By: #### 2 733580, 7779677, 1545591, 9409651, 2886596, 38342776 ####[facility] [address] [place] [address] Urea nitrogen [Mass/Vol] 6 mg/dL Normal 5-21 [facility] Comment on above: Performed By: #### 2 798620, 3121731, 9938436, 0485599, 2321063, 83682883 ####[facility] [address] [place] [address] Urea nitrogen/Creatinine [Mass ratio] 12 No Units Normal 10-20 [facility] Comment on above: Performed By: #### 2 206476, 6566302, 7257400, 7263165, 8383640, 38234371 ####[facility] [address] [place] [address] Anion gap [Moles/Vol] 10 mmol/L Normal 6-16 [facility] Comment on above: Performed By: #### 2 830972, 5672742, 3015744, 4817680, 2127531, 43287511 ####[facility] [address] [place] [address] Calcium [Mass/Vol] 8.7 mg/dL Low 8.9-11.1 [facility] Comment on above: Performed By: #### 2 885175, 6907935, 6242533, 8401501, 2337209, 16871719 ####[facility] [address] [place] [address] Chloride [Moles/Vol] 107 mmol/L Normal 101-111 [facility] Comment on above: Performed By: #### 2 767378, 4762667, 8004317, 1237976, 0432724, 97916082 ####[facility] [address] [place] [address] CO2 [Moles/Vol] 21 mmol/L Normal 21-31 [facility] Comment on above: Performed By: #### 2 383495, 2519359, 3951051, 6991751, 5693653, 38531067 ####[facility] [address] [place] [address] Glucose [Mass/Vol] 77 mg/dL Normal 55-199 [facility] Comment on above: Result Comment: If t his glucose result represents a fasting glucose, interpretation should refer to the following reference range: 55-99 mg/dL Performed By: #### 2 507662, 5435112, 6067259, 9367147, 4078802, 76465612 ####[facility] [address] [place] [address] Potassium [Moles/Vol] 3.8 mmol/L Normal 3.5-5.3 [facility] Comment on above: Performed By: #### 2 491478, 8317233, 2865282, 6270325, 0123357, 25842797 ####[facility] [address] [place] [address] Sodium [Moles/Vol] 134 mmol/L Low 135-145 [facility] Comment on above: Performed By: #### 2 875720, 1173380, 4667686, 8981304, 1448764, 02273211 ####[facility] [address] [place] [address] BhCG Quanton 06-14-2023 HCG.beta subunit Qn 191466 m[IU]/mL High 1-3 [facility] Comment on above: Result Comment: GEST ATIONAL AGE HCG RANGE (mIU/mL) NON- <1-3 0.2-1 WEEKS 5-50 1-2 WEEKS 50-500 2-3 WEEKS 100-5,000 3-4 WEEKS 500-10,000 4-5 WEEKS 1,000-50,000 5-6 WEEKS 10,000-100,000 6-8 WEEKS 15,000-200,000 8-12 WEEKS 10,000-100,000 Performed By: #### 2 702761 ####[facility] [address] [place] [address] CBC w/ Auto Diffon Erythrocyte distribution width (RBC) [Ratio] 12.6 % Normal 10.9-14.2 [facility] Comment on above: Performed By: #### 2 364026, 1111432, 1654628, 9833818, 6163643, 00516831 ####[facility] [address] [place] [address] Hematocrit (Bld) [Volume fraction] 39.9 % Normal 34.0-46.0 [facility] Comment on above: Performed By: #### 2 303807, 9057964, 5294661, 0887107, 9090466, 67826830 ####[facility] [address] [place] [address] Hemoglobin (Bld) [Mass/Vol] 13.4 g/dL Normal 12.0-16.0 [facility] Comment on above: Performed By: #### 2 027695, 1092689, 4599690, 7015701, 9724072, 34340816 ####[facility] [address] [place] [address] MCH (RBC) [Entitic mass] 29.8 pg Normal 27.0-34.0 [facility] Comment on above: Performed By: #### 2 143818, 0995719, 8970774, 6629898, 2839424, 53787113 ####[address] MCHC (RBC) [Mass/Vol] 33.6 g/dL Normal 31.4-36.0 [facility] Comment on above: Performed By: #### 2 242608, 0371436, 0901918, 1608410, 8031475, 72499122 ####[address] [address] MCV (RBC) [Entitic vol] 88.8 fL Normal 80.0-100.0 [facility] Comment on above: Performed By: #### 2 078415, 6595673, 5193584, 5607997, 7553363, 27474455 ####[address] [address] Platelet mean volume (Bld) [Entitic vol] 8.4 fL Normal 6.4-10.8 [facility] Comment on above: Performed By: #### 2 818229, 2038938, 3278200, 1792798, 3885762, 47061842 ####[address] [address] Platelets (Bld) [#/Vol] 225.0 E9/L Normal 150.0-500.0 [facility] Comment on above: Performed By: #### 2 485988, 6834004, 5066318, 9357122, 0407029, 49740024 ####[address] [address] RBC (Bld) [#/Vol] 4.5 E12/L Normal 4.3-5.9 [facility] Comment on above: Performed By: #### 2 371366, 5002398, 2233262, 4901930, 9325744, 04483596 ####[facility] [address] [place] [address] WBC corrected for nucl RBC Auto (Bld) [#/Vol] 5.4 E9/L Normal 4.0-11.0 [facility] Comment on above: Performed By: #### 2 899285, 0633775, 3249958, 7687155, 6676665, 27175292 ####[facility] [address] [place] [address] CHEMISTRYOrdered By: SYSTEM SYSTEM on 06-14-2023 Albumin [...] 130 mL/min/1.73 m2 Normal >=59mL/min/ 1.73 m2 [facility] Chem S Globulin (S) [Mass/Vol] 3.3 g/dL Normal 1.4 - 4.0 gm/dL FT Remisol Glucose [Mass/Vol] 77 mg/dL Normal 55 - 199 mg/dL FT Remisol HCG.beta subunit Qn 838655 m[IU]/mL High 1 - 3 mIU/mL FT [...] Consent for Treatmenton 05-17 Consent for Treatment [id number]:12 [id number] Normal [facility] ED Clinical Summaryon 2022 ED Clinical Summary Normal [facility] ED Note-Physicianon 06-14-20 ED Note-Physician Normal [facility] Comment on above: Result Comment: Elec tronically Signed By: Jos Ugalde PA-C\.br\Date and Time Signed: 06/14/23 11:58 EDT\.br\Electronically Co-Signed By: Kristian Guillermo DO.br\Date and Time Co-Signed: 06/14/23 17:02 EDT ED Patient Education Noteon 06-14-2023 ED Patient Education Note Normal [facility] ED Patient Summaryon 023 ED Patient Summary Normal [facility] HEMATOLOGYOrdered By: SYSTEM SYSTEM on 06-14-2023 [...] 88.8 fL Normal 80.0 - 100.0 fL [facility] HemeAutoSS Platelet mean volume (Bld) [Entitic vol] 8.4 fL Normal 6.4 - 10.8 fL [facility] HemeAutoSS Platelets (Bld) [#/Vol] 225.0 E9/L Normal 150.0 - 500.0 E9/L [facility] HemeAutoSS RBC (Bld) [#/Vol] 4.5 E12/L Normal 4.3 - 5.9 E12/L [facility] HemeAutoSS WBC corrected for nucl RBC Auto (Bld) [#/Vol] 5.4 E9/L Normal 4.0 - 11.0 E9/L [facility] HemeAutoSS Hep Func Panelon 06-14-2023 Bilirubin.indirect [Mass or moles/Vol] UTC Abnormal 0.1-0.9 [facility] Comment on above: Result Comment: Resu lt verified by Discern Rule. Performed result UTC (Unable to Calculate) was sent as an Alpha code due the inability to calculate a valid numeric value. Performed By: #### 2 952889, 9482580, 7973155, 8761788, 5459186, 42695858 ####[facility] [address] [place] [address] Albumin [Mass/Vol] 3.5 g/dL Normal 3.3-5.0 [facility] Comment on above: Performed By: #### 2 081079, 7378963, 3675338, 7671840, 9733812, 45505689 ####[facility] [address] [place] [address] Albumin/Globulin (S) [Mass conc ratio] 1.1 Normal 1.1-2.2 [facility] Comment on above: Performed By: #### 2 400091, 2200408, 7728938, 2991955, 9143407, 42182797 ####[facility] [address] [place] [address] ALP [Catalytic activity/Vol] 34 Int._Unit/L Normal 21-98 [facility] Comment on above: Performed By: #### 2 329822, 5113285, 1846334, 1690540, 0320475, 70687887 ####[facility] [address] [place] [address] ALT No additional P-5'-P [Catalytic activity/Vol] 13 Int._Unit/L Normal 6-46 [facility] Comment on above: Performed By: #### 2 570120, 8081632, 8178354, 2099230, 5108676, 06314201 ####[address] [address] AST [Catalytic activity/Vol] 17 Int._Unit/L Normal 5-43 [facility] Comment on above: Performed By: #### 2 411118, 6135775, 6736516, 1117026, 8292364, 72468056 ####[address] [address] Bilirubin [Mass/Vol] 0.6 mg/dL Normal 0.0-1.1 [facility] Comment on above: Performed By: #### 2 955057, 5431944, 1543337, 1094694, 6637394, 92321691 ####[address] [address] Globulin (S) [Mass/Vol] 3.3 g/dL Normal 1.4-4.0 [facility] Comment on above: Performed By: #### 2 325618, 2930067, 5835647, 0385016, 0618388, 48811925 ####[address] [address] Protein [Mass/Vol] 6.8 g/dL Normal 6.0-7.8 [facility] Comment on above: Performed By: #### 2 357956, 7983695, 4143142, 3549525, 6763930, 39375366 ####[address] [place] [address] Bilirubin.direct [Mass/Vol] mg/dL Normal 0.1-0.4 [facility] Comment on above: Performed By: #### 2 276335, 2997893, 7910133, 1011076, 3222634, 68753847 ####[facility] [address] [place] [address] Lipase Levelon 06-14-2023 Lipase [Catalytic activity/Vol] 28 U/L Normal 13-58 [facility] Comment on above: Performed By: #### 2 660391, 0675319, 0466145, 0155730, 3989046, 83703747 ####[address] [address] Progress Note-Nurseon 2022 Progress Note-Nurse MAHESH Hinds verbalize d she was unable to locate patient at this time Normal [facility] UA With Cult Reflexon 2022 Bacteria LM Ql (Urine sed) TRACE Normal Trace [facility] Comment on above: Performed By: #### 1 [id number] ####[address] [address] Bilirubin Ql (U) Negative Normal Negative [facility] Comment on above: Performed By: #### 1 2251920 ####[address] [address] Clarity (U) CLEAR Normal Clear [facility] Comment on above: Performed By: #### 1 0833818 ####[address] [address] Color (U) YELLOW Normal Yellow [facility] Comment on above: Performed By: #### 1 0171649 ####[address] [address] Epithelial cells.squamous LM.HPF (Urine sed) [#/Area] 3-4 Normal 0-2 [facility] Comment on above: Performed By: #### 1 0900093 ####[address] [address] Glucose Test strip (U) [Mass/Vol] Negative Normal Negative [facility] Comment on above: Performed By: #### 1 4902248 ####[address] [place] [address] Hemoglobin Ql (U) Negative Normal Negative [facility] Comment on above: Performed By: #### 1 5974961 ####[address] [address] Ketones (U) [Mass/Vol] Negative Normal Negative [facility] Comment on above: Performed By: #### 1 1159132 ####[address] [address] [place].plasma/[place] .RBC (Bld) [Mass ratio] 0-3 Normal 0-3 [facility] Comment on above: Performed By: #### 1 2733378 ####[address] [address] Mucus Ql (Urine sed) TRACE Normal [facility] Comment on above: Performed By: #### 1 5667740 ####[address] [address] Nitrite Ql (U) Negative Normal Negative [facility] Comment on above: Performed By: #### 1 3343516 ####[address] [address] pH (U) 6.5 [pH] Invalid Interpretation Code 5.0-9.0 [facility] Comment on above: Performed By: #### 1 0055721 ####[address] [address] Protein (U) [Mass/Vol] Negative Normal Negative [facility] Comment on above: Performed By: #### 1 6823728 ####[address] [address] Specific gravity (U) [Rel density] 1.015 Invalid Interpretation Code 1.005-1.030 [facility] Comment on above: Performed By: #### 1 8268704 ####[address] [address] Type of Urine collection method Clean Catch Normal [facility] Comment on above: Performed By: #### 1 2097737 ####[facility] [address] [place] [address] Urobilinogen Qn (U) 0.2 {Rola'U}/dL Normal 0.0-1.0 [facility] Comment on above: Performed By: #### 1 2961552 ####[facility] [address] [place] [address] WBC Auto Ql (U) TRACE Abnormal Negative [facility] Comment on above: Performed By: #### 1 2010644 ####[facility] [address] [place] [address] WBC LM.HPF (Urine sed) [#/Area] 0-5 Normal 0-5 [facility] Comment on above: Performed By: #### 1 0362418 ####[facility] [address] [place] [address] URINALYSISOrdered By: An Mccarty on 06-14-2023 Bacteria [...] AM) Normal Negative [facility] UA Auto SS [place].plasma/[place] .RBC (Bld) [Mass ratio] 0-3 /HPF Normal [...] [facility] UA Auto SS Urobilinogen Qn (U) 0.4806610 {Rola'U}/dL Normal 0.0 - 1.0 EU/dL [facility] UA Auto SS WBC Auto Ql (U) Trace *ABN* (06/14/23 10:13 AM) Invalid Interpretation Code Negative [facility] UA Auto SS WBC LM.HPF (Urine sed) [#/Area] 0-5 /HPF Normal 0-5/HPF [facility] UA Auto SS US 1st Trimesteron 06-14-2023 US 1st Trimester Normal [facility] eGFRon 06-14-2023 GFR/1.73 sq M.predicted among non-blacks MDRD (S/P/Bld) [Vol rate/Area] 130 mL/min/1.73 m2 Normal >=59 [facility] Comment on above: Order Comment: Order added by Discern Expert. Result Comment: Advanced Solutions Architect lucy kidney disease could be indicated at eGFR's of less than 60 mL/min/1.73m2. Kidney failure is indicated at less than 15 mL/min/1.73m2. Performed By: #### 2 369351, 3221902, 7765839, 9825244, 3842788, 15842897 ####[facility] [address] [place] [address] CHEMISTRYOrdered By: SYSTEM SYSTEM on 06-12-2023 TSH Qn 3.80 m[IU]/L Normal 0.34 - 5.60 mcIU/mL [facility] Remisol Consent for Treatmenton 05-16 Consent for Treatment [id number]#1.00CD:12 7 Normal [facility] Physician Orderon 06-12-2023 Physician Order [id number]#1.00CD:12 7 Normal [facility] TSHon 06-12-2023 TSH Qn 3.80 m[IU]/L Normal 0.34-5.60 [facility] Comment on above: Performed By: #### 2 283483 ####[facility] [address] [place] [address] BhCG Quanton 05-22-2023 HCG.beta subunit Qn 938091 m[IU]/mL High 1-3 [facility] Comment on above: Result Comment: GEST ATIONAL AGE HCG RANGE (mIU/mL) NON- <1-3 0.2-1 WEEKS 5-50 1-2 WEEKS 50-500 2-3 WEEKS 100-5,000 3-4 WEEKS 500-10,000 4-5 WEEKS 1,000-50,000 5-6 WEEKS 10,000-100,000 6-8 WEEKS 15,000-200,000 8-12 WEEKS 10,000-100,000 Performed By: #### 2 606897 ####[facility] [address] [place] [address] Discharge Instructionson Discharge Instructions [id number]#1.00CD:1 27 Normal [facility] ED Clinical Summaryon 2022 ED Clinical Summary Normal [facility] ED Note-Physicianon 05-22-20 23 ED Note-Physician Normal [facility] Comment on above: Result Comment: Elec tronically Signed By: Gopi Rodriguez DObr\Date and Time Signed: 05/21/23 23:17 EDT ED Patient Education Noteon 05-22-2023 ED Patient Education Note Normal [facility] ED Patient Summaryon 023 ED Patient Summary Normal [facility] UA With Cult Reflexon 2022 Bacteria LM Ql (Urine sed) TRACE Normal Trace [facility] Comment on above: Performed By: #### 1 [id number] ####[facility] [address] [place] [address] Bilirubin Ql (U) Negative Normal Negative [facility] Comment on above: Performed By: #### 1 8071674 ####[address] [address] Clarity (U) CLEAR Normal Clear [facility] Comment on above: Performed By: #### 1 6980432 ####[address] [address] Color (U) DARK YELLO Abnormal Yellow [facility] Comment on above: Performed By: #### 1 9739960 ####[address] [address] Epithelial cells.squamous LM.HPF (Urine sed) [#/Area] 0-2 Normal 0-2 [facility] Comment on above: Performed By: #### 1 2136452 ####[address] [address] Glucose Test strip (U) [Mass/Vol] Negative Normal Negative [facility] Comment on above: Performed By: #### 1 1337832 ####[address] [address] Hemoglobin Ql (U) TRACE Abnormal Negative [facility] Comment on above: Performed By: #### 1 3513372 ####[facility] [address] [place] [address] Ketones (U) [Mass/Vol] TRACE Abnormal Negative [facility] Comment on above: Performed By: #### 1 4690204 ####[facility] [address] [place] [address] [place].plasma/[place] .RBC (Bld) [Mass ratio] 4-20 Normal 0-3 [facility] Comment on above: Performed By: #### 1 0193024 ####[facility] [address] [place] [address] Mucus Ql (Urine sed) 1+ Normal [facility] Comment on above: Performed By: #### 1 2463957 ####[facility] [address] [place] [address] Nitrite Ql (U) Negative Normal Negative [facility] Comment on above: Performed By: #### 1 9649278 ####[address] [address] pH (U) 6.0 [pH] Invalid Interpretation Code 5.0-9.0 [facility] Comment on above: Performed By: #### 1 6872158 ####[address] [address] Protein (U) [Mass/Vol] 2+ Abnormal Negative [facility] Comment on above: Performed By: #### 1 7637496 ####[address] [address] Specific gravity (U) [Rel density] >=1.030 Invalid Interpretation Code 1.005-1.030 [facility] Comment on above: Performed By: #### 1 7422983 ####[address] [address] Type of Urine collection method Clean Catch Normal [facility] Comment on above: Performed By: #### 1 2835277 ####[address] [address] Urobilinogen Qn (U) 0.2 {Rola'U}/dL Normal 0.0-1.0 [facility] Comment on above: Performed By: #### 1 2066450 ####[address] [address] WBC Auto Ql (U) Negative Normal Negative [facility] Comment on above: Performed By: #### 1 4555892 ####[address] [address] WBC LM.HPF (Urine sed) [#/Area] 0-5 Normal 0-5 [facility] Comment on above: Performed By: #### 1 2689345 ####[address] [place] [address] US 1st Trimesteron 05-22-2023 US 1st Trimester Normal [facility] Auto Diffon 05-21-2023 Basophils/100 WBC (Bld) 1.0 % Normal 0.0-2.0 [facility] Comment on above: Order Comment: Order Added by Discern Expert. Performed By: #### 2 629079, 3212081, 29667821, 21447623, 0896834, 1130555, 6420690 ####[address] [address] Basophils/Leukocytes Auto (Bld) [Pure # fraction] 0.1 E9/L Normal 0.0-0.2 [facility] Comment on above: Order Comment: Order Added by Discern Expert. Performed By: #### 2 971474, 1523839, 28710324, 87955130, 8972908, 7956974, 4878223 ####[address] [address] Eosinophils/100 WBC (Bld) 1.5 % Normal 0.0-8.0 [facility] Comment on above: Order Comment: Order Added by Discern Expert. Performed By: #### 2 796117, 7673173, 37180704, 94885326, 8597911, 6921045, 2660859 ####[address] [address] Eosinophils/Leukocytes Auto (Bld) [Pure # fraction] 0.1 E9/L Normal 0.0-0.5 [facility] Comment on above: Order Comment: Order Added by Discern Expert. Performed By: #### 2 385335, 1097523, 95481633, 93957377, 4430775, 7666140, 3213366 ####[address] [address] Lymphocytes/100 WBC (Bld) 36.6 % Normal 14.0-50.0 [facility] Comment on above: Order Comment: Order Added by Discern Expert. Performed By: #### 2 547955, 7197981, 47330524, 61943301, 3767105, 8606418, 5453840 ####[address] [place] [address] Lymphocytes/Leukocytes Auto (Bld) [Pure # fraction] 2.5 E9/L Normal 1.0-4.0 [facility] Comment on above: Order Comment: Order Added by Discern Expert. Performed By: #### 2 311865, 8031836, 62322152, 24501809, 1866122, 5622960, 8020944 ####[address] [place] [address] Monocytes/100 WBC (Bld) 8.2 % Normal 4.0-14.0 [facility] Comment on above: Order Comment: Order Added by Discern Expert. Performed By: #### 2 899759, 1875999, 92828889, 63278930, 7570624, 2082002, 3620869 ####[address] [address] Monocytes/Leukocytes Auto (Bld) [Pure # fraction] 0.6 E9/L Normal 0.2-1.0 [facility] Comment on above: Order Comment: Order Added by Discern Expert. Performed By: #### 2 731097, 5433325, 33527156, 07730233, 5542012, 8570709, 5655176 ####[address] [address] Neutrophils/100 WBC (Bld) 52.7 % Normal 36.0-75.0 [facility] Comment on above: Order Comment: Order Added by Discern Expert. Performed By: #### 2 620383, 0584698, 77947953, 35771916, 8102073, 1181012, 6981976 ####[address] [place] [address] Neutrophils/Leukocytes Auto (Bld) [Pure # fraction] 3.6 E9/L Normal 2.0-7.5 [facility] Comment on above: Order Comment: Order Added by Discern Expert. Performed By: #### 2 953045, 6048092, 09718860, 15607244, 1224471, 6981097, 8849433 ####[facility] [address] [place] [address] BMPon 05-21-2023 Creatinine [Mass/Vol] 0.7 mg/dL Normal 0.5-1.3 [facility] Comment on above: Performed By: #### 2 096010, 2007356, 85099180, 30531000, 8957620, 7273920, 0824189 ####[facility] [address] [place] [address] Urea nitrogen [Mass/Vol] 8 mg/dL Normal 5-21 [facility] Comment on above: Performed By: #### 2 199453, 5927035, 22293408, 88239733, 7701969, 4175262, 8429739 ####[facility] [address] [place] [address] Urea nitrogen/Creatinine [Mass ratio] 11 No Units Normal 10-20 [facility] Comment on above: Performed By: #### 2 606988, 1827113, 44748688, 41385281, 0535100, 0610189, 5010378 ####[facility] [address] [place] [address] Anion gap [Moles/Vol] 12 mmol/L Normal 6-16 [facility] Comment on above: Performed By: #### 2 291189, 7701729, 80093789, 44375558, 5052443, 1902214, 8636771 ####[facility] [address] [place] [address] Calcium [Mass/Vol] 9.2 mg/dL Normal 8.9-11.1 [facility] Comment on above: Performed By: #### 2 486194, 8280682, 82068283, 89737414, 3680718, 2902177, 9801322 ####[facility] [address] [place] [address] Chloride [Moles/Vol] 104 mmol/L Normal 101-111 [facility] Comment on above: Performed By: #### 2 091193, 4078168, 83245330, 77489258, 4219944, 1387663, 1200498 ####[facility] [address] [place] [address] CO2 [Moles/Vol] 24 mmol/L Normal 21-31 [facility] Comment on above: Performed By: #### 2 159972, 8720399, 02403616, 20816386, 0781665, 0205193, 7441863 ####[facility] [address] [place] [address] Glucose [Mass/Vol] 87 mg/dL Normal 55-199 [facility] Comment on above: Result Comment: If t his glucose result represents a fasting glucose, interpretation should refer to the following reference range: 55-99 mg/dL Performed By: #### 2 509524, 5257234, 23114466, 60428556, 3847674, 4002864, 7409361 ####[facility] [address] [place] [address] Potassium [Moles/Vol] 3.2 mmol/L Low 3.5-5.3 [facility] Comment on above: Performed By: #### 2 553617, 4827084, 59351584, 48942339, 2786040, 6331688, 1990541 ####[facility] [address] [place] [address] Sodium [Moles/Vol] 137 mmol/L Normal 135-145 [facility] Comment on above: Performed By: #### 2 503797, 1288222, 83735389, 45508940, 5268664, 1842548, 2566024 ####[facility] [address] [place] [address] CBC w/ Auto Diffon 3 Erythrocyte distribution width (RBC) [Ratio] 13.3 % Normal 10.9-14.2 [facility] Comment on above: Performed By: #### 2 973172, 0200755, 08882681, 90773546, 6904541, 5971680, 0348729 ####[address] [place] [address] Hematocrit (Bld) [Volume fraction] 39.0 % Normal 34.0-46.0 [facility] Comment on above: Performed By: #### 2 886479, 9632562, 38760552, 79712615, 8813289, 3510607, 2894480 ####[address] [address] Hemoglobin (Bld) [Mass/Vol] 13.3 g/dL Normal 12.0-16.0 [facility] Comment on above: Performed By: #### 2 345473, 2925564, 31207551, 75771422, 5426051, 7608415, 7674702 ####[place] [address] MCH (RBC) [Entitic mass] 30.3 pg Normal 27.0-34.0 [facility] Comment on above: Performed By: #### 2 862133, 8123145, 12054434, 10186447, 2206435, 6014040, 4450353 ####[address] [address] MCHC (RBC) [Mass/Vol] 34.2 g/dL Normal 31.4-36.0 [facility] Comment on above: Performed By: #### 2 274910, 5674061, 95744023, 40618054, 1653347, 9935316, 1871064 ####[address] [address] MCV (RBC) [Entitic vol] 88.7 fL Normal 80.0-100.0 [facility] Comment on above: Performed By: #### 2 894222, 3325631, 01968633, 56454045, 1396408, 2912905, 2886798 ####[address] [place] [address] Platelet mean volume (Bld) [Entitic vol] 7.8 fL Normal 6.4-10.8 [facility] Comment on above: Performed By: #### 2 922019, 0464267, 48686409, 84318714, 2685553, 4927967, 5481330 ####[address] [address] Platelets (Bld) [#/Vol] 225.0 E9/L Normal 150.0-500.0 [facility] Comment on above: Performed By: #### 2 939368, 2678296, 86363614, 47308429, 2420525, 1744727, 4076070 ####[address] [address] RBC (Bld) [#/Vol] 4.4 E12/L Normal 4.3-5.9 [facility] Comment on above: Performed By: #### 2 429764, 9780111, 47035817, 85274774, 4497475, 5265128, 5463657 ####[address] [address] WBC corrected for nucl RBC Auto (Bld) [#/Vol] 6.8 E9/L Normal 4.0-11.0 [facility] Comment on above: Performed By: #### 2 765433, 5472600, 30806105, 58856697, 1435747, 6659758, 4284525 ####[address] [address] CHEMISTRYOrdered By: SYSTEM SYSTEM on 05-21-2023 HCG.beta subunit Qn 340991 m[IU]/mL High 1 - 3 mIU/mL [facility] [...] 120 mL/min/1.73 m2 Normal >=59mL/min/ 1.73 m2 [facility] Chem S Globulin (S) [Mass/Vol] 3.1 g/dL [...] Remisol Consent for Treatmenton Consent for Treatment [id number]#[id number]:12 7 Normal [facility] HEMATOLOGYOrdered By: SYSTEM SYSTEM on 05-21-2023 [...] Bilirubin.indirect [Mass or moles/Vol] UTC Abnormal 0.1-0.9 [facility] Comment on above: Result Comment: Resu lt verified by Discern Rule. Performed result UTC (Unable to Calculate) was sent as an Alpha code due the inability to calculate a valid numeric value. Performed By: #### 2 949210, 8076035, 05987201, 72544755, 1953862, 2967291, 4249849 ####[facility] [address] [place] [address] Albumin [Mass/Vol] 3.8 g/dL Normal 3.3-5.0 [facility] Comment on above: Performed By: #### 2 516261, 8549279, 00156829, 22224171, 4616063, 9202348, 6745323 ####[facility] [address] [place] [address] Albumin/Globulin (S) [Mass conc ratio] 1.2 Normal 1.1-2.2 [facility] Comment on above: Performed By: #### 2 151154, 8622611, 40938414, 95570497, 2431768, 6328405, 1167075 ####[facility] [address] [place] [address] ALP [Catalytic activity/Vol] 42 Int._Unit/L Normal 21-98 [facility] Comment on above: Performed By: #### 2 271312, 6025750, 39966778, 19608577, 9284739, 5508913, 8328009 ####[address] [place] [address] ALT No additional P-5'-P [Catalytic activity/Vol] 13 Int._Unit/L Normal 6-46 [facility] Comment on above: Performed By: #### 2 870055, 6549090, 00045392, 22838787, 8431399, 7953878, 4526075 ####[address] [address] AST [Catalytic activity/Vol] 14 Int._Unit/L Normal 5-43 [facility] Comment on above: Performed By: #### 2 764570, 9724763, 71533826, 40572780, 3098463, 9512878, 1303983 ####[address] [address] Bilirubin [Mass/Vol] 0.5 mg/dL Normal 0.0-1.1 [facility] Comment on above: Performed By: #### 2 175463, 7753469, 24474422, 71529482, 8931356, 8702524, 6819778 ####[address] [place] [address] Globulin (S) [Mass/Vol] 3.1 g/dL Normal 1.4-4.0 [facility] Comment on above: Performed By: #### 2 254198, 8016975, 70386603, 47227807, 4972214, 1130551, 5261916 ####[facility] [address] [place] [address] Protein [Mass/Vol] 6.9 g/dL Normal 6.0-7.8 [facility] Comment on above: Performed By: #### 2 276127, 4209682, 89982204, 66074398, 5323430, 0632622, 9631569 ####[facility] [address] [place] [address] Bilirubin.direct [Mass/Vol] mg/dL Normal 0.1-0.4 [facility] Comment on above: Performed By: #### 2 048255, 2114856, 84606591, 60624300, 5669439, 0008640, 5836549 ####[facility] [address] [place] [address] Lipase Levelon 05-21-2023 Lipase [Catalytic activity/Vol] 31 U/L Normal 13-58 [facility] Comment on above: Performed By: #### 2 598987, 0507580, 04190148, 19146470, 9149653, 4214734, 5020866 ####[facility] [address] [place] [address] Troponin 0 Hr.on 05-21-2023 Troponin I.cardiac [Mass/Vol] 2.50 pg/mL Low 10.10-27.10 [facility] Comment on above: Result Comment: The 95% CI (Confidence Interval) PPV (Positive Predictive Value) for myocardial infarction in females is 38 pg/mL, in males 51 pg/mL. The results should be used in conjunction with clinical conditions of myocardial infarction.(Access High Sensitivity Troponin I Instructions For Use, Ziggy Wasilla, May 2018) Performed By: #### 2 454644, 9493104, 79946829, 54250019, 7207158, 0930828, 6988603 ####[facility] [address] [place] [address] URINALYSISOrdered By: Jose Miguel nelson on 05-21-2023 [...] Interpretation Code Negative [facility] UA Auto SS [place].plasma/[place] .RBC (Bld) [Mass ratio] 4-20 /HPF Normal [...] [facility] UA Auto SS Urobilinogen Qn (U) 0.0394852 {Rola'U}/dL Normal 0.0 - 1.0 EU/dL [facility] UA Auto SS WBC Auto Ql (U) Negative (05/21/23 10:17 PM) Normal Negative [facility] UA Auto SS WBC LM.HPF (Urine sed) [#/Area] 0-5 /HPF Normal 0-5/HPF [facility] UA Auto SS eGFRon 05-21-2023 GFR/1.73 sq M.predicted among non-blacks MDRD (S/P/Bld) [Vol rate/Area] 120 mL/min/1.73 m2 Normal >=59 [facility] Comment on above: Order Comment: Order added by Discern Expert. Result Comment: Advanced Solutions Architect lucy kidney disease could be indicated at eGFR's of less than 60 mL/min/1.73m2. Kidney failure is indicated at less than 15 mL/min/1.73m2. Performed By: #### 2 655890, 0969336, 07107331, 59685303, 3291961, 2862219, 8594473 ####[facility] [address] [place] [address] PAP [id number] 05-03-2023 C. trachomatis rRNA MAHAD+probe Ql (Cvx) Negative Invalid Interpretation Code Negative [facility] Comment on above: Performed By: #### 3 [id number] ####[facility] [address] [place] [address] Cytology report Cyto stain Doc (Cvx/Vag) Note Invalid Interpretation Code [facility] Comment on above: Result Comment: TEST S RESULT FLAG UNITS REF RANGE LAB Clinician Provided Cytology InformationSource.............EndocervixNo. of containers..01 ThinPrep VialDIAGNOSIS: 01NEGATIVE FOR INTRAEPITHELIAL LESION OR MALIGNANCY.Specimen adequacy: 01Satisfactory for evaluation. Endocervical and/or squamous metaplasticcells (endocervical component) are present.Performed by: Eliana Shea Guest Experience Manager (ASCP). 01Note: Note 01The Pap smear [...] Low,>-Panic High,A-Abnormal,AA-Critical Abnormal -----Performed at:[address] [facility] [address] [place] [address]XburckJoya Walton MD, Performed By: #### 3 [id number] ####[address] [address] N. gonorrhoeae rRNA MAHAD+probe Ql (Cvx) Negative Invalid Interpretation Code Negative [facility] Comment on above: Result Comment: Perf ormed at: [facility] [address] [id number] MD Anton HinsonPerformed at: =[facility] [address] [id number] MD Anton Hinson Performed By: #### 3 095797189 ####[address] [place] [address] C Urineon 05-02-2023 Bacteria identified Cx Nom (U) Normal [facility] Comment on above: Performed By: #### 2 606068 ####[address] [place] [address] HIV Screen 4th Generation wR fxon 05-01-2023 HIV 1+2 Ab+HIV1 p24 Ag IA Ql Non-Reactive Invalid Interpretation Code Non Reactive [facility] Comment on above: Result Comment: HIV NegativeHIV-1/HIV-2 antibodies and HIV-1 p24 antigen were NOT detected.There is no laboratory evidence of HIV infection.Performed at: [id number] [place], [place] [id number] PhD [facility] [place] Performed By: #### 1 23962369, 42171522, 503708928, 4504773, 1439340 ####[facility] [address] [place] [address] Hep Bs Agon 05-01-2023 HBV surface Ag IA Ql Negative Invalid Interpretation Code Negative [facility] Comment on above: Result Comment: Perf ormed at: [address] [id number] PhD [facility] [place] Performed By: #### 1 19595529, 27312879, 779459454, 6656588, 1009769 ####[facility] [address] [place] [address] RPR with Conf Rfxon 05-01-20 23 Reagin Ab RPR Ql (S) Non-Reactive Invalid Interpretation Code Non Reactive [facility] Comment on above: Result Comment: Perf ormed at: [address] [id number] PhD [place] Performed By: #### 1 [id number], 60412752, 557588475, 9276266, 5561850 ####[facility] [address] [place] [address] Rubella IgGon 05-01-2023 Rubella virus IgG Qn (S) [IU]/mL Low Immune >0.99 [facility] Comment on above: Result Comment: Non- immune <0.90Equivocal 0.90 - 0.99Immune >0.99Performed at: [address] [id number] PhD [place] Performed By: #### 1 50675855, 48633627, 486741053, 8153057, 9604762 ####[facility] [address] [place] [address] ABO/Rhon 04-30-2023 ABO/Rh Positive Invalid Interpretation Code [facility] Comment on above: Performed By: #### 2 849630, [id number] ####[facility] [address] [place] [address] ABSCon 04-30-2023 ABSC Gel Interp Negative Normal [facility] Comment on above: Performed By: #### 2 007036, [id number] ####[address] [place] [address] BLOOD BANKOrdered By: Diamond Junior on 04-30-2023 ABO/Rh Interp Positive Invalid Interpretation Code [facility] BB Subsection ABSC Gel Interp Negative (04/30/23 9:30 AM) Normal [facility] BB Subsection BhCG Quanton 04-30-2023 [place] [address] m[IU]/mL High 1-3 [facility] Comment on above: Result Comment: GEST ATIONAL AGE HCG RANGE (mIU/mL) NON- <1-3 0.2-1 WEEKS 5-50 1-2 WEEKS 50-500 2-3 WEEKS 100-5,000 3-4 WEEKS 500-10,000 4-5 WEEKS 1,000-50,000 5-6 WEEKS 10,000-100,000 6-8 WEEKS 15,000-200,000 8-12 WEEKS 10,000-100,000 Performed By: #### 2 159280 ####[facility] [address] [place] [address] CBC w/Indiceson 04-30-2023 Erythrocyte distribution width (RBC) [Ratio] 13.7 % Normal 10.9-14.2 [facility] Comment on above: Performed By: #### 1 46762991, 29220143, 086555257, 2689276, 3406138 ####[facility] [address] [place] [address] Hematocrit (Bld) [Volume fraction] 40.7 % Normal 34.0-46.0 [facility] Comment on above: Performed By: #### 1 67748070, 84538343, 437360034, 9211315, 7835339 ####[facility] [address] [place] [address] Hemoglobin (Bld) [Mass/Vol] 13.8 g/dL Normal 12.0-16.0 [facility] Comment on above: Performed By: #### 1 66527387, 76951531, 023199033, 1476681, 3991064 ####[address] [address] MCH (RBC) [Entitic mass] 30.5 pg Normal 27.0-34.0 [facility] Comment on above: Performed By: #### 1 42120251, 44014143, 051862643, 1676037, 2084017 ####[address] [address] MCHC (RBC) [Mass/Vol] 33.9 g/dL Normal 31.4-36.0 [facility] Comment on above: Performed By: #### 1 67306685, 24972740, 242735066, 2027206, 2554346 ####[address] [address] MCV (RBC) [Entitic vol] 89.9 fL Normal 80.0-100.0 [facility] Comment on above: Performed By: #### 1 12827746, 75423955, 981151959, 0510963, 8726761 ####[address] [place] [address] Platelet mean volume (Bld) [Entitic vol] 8.2 fL Normal 6.4-10.8 [facility] Comment on above: Performed By: #### 1 10495949, 25339090, 306600498, 2183366, 9957391 ####[address] [place] [address] Platelets (Bld) [#/Vol] 279.0 E9/L Normal 150.0-500.0 [facility] Comment on above: Performed By: #### 1 32381480, 74140851, 993572747, 6293638, 0080630 ####[facility] [address] [place] [address] RBC (Bld) [#/Vol] 4.5 E12/L Normal 4.3-5.9 [facility] Comment on above: Performed By: #### 1 34713932, 02803558, 250254172, 7219166, 3150258 ####[facility] [address] [place] [address] WBC corrected for nucl RBC Auto (Bld) [#/Vol] 5.8 E9/L Normal 4.0-11.0 [facility] Comment on above: Performed By: #### 1 58685200, 09095516, 253416445, 7835942, 9477713 ####[facility] [address] [place] [address] CHEMISTRYOrdered By: [facility] on 04-30-2023 [place] [address] m[IU]/mL High 1 - 3 mIU/mL [facility] Remisol Consent for Treatmenton 04-14 Consent for Treatment [id number]#1.00CD:12 7 Normal [facility] HEMATOLOGYOrdered By: Temi Romero on 04-30-2023 [...] 33.9 g/dL Normal 31.4 - 36.0 gm/dL [facility] HemeAutoSS MCV (RBC) [Entitic vol] 89.9 fL Normal 80.0 - 100.0 fL [facility] HemeAutoSS Platelet mean volume (Bld) [Entitic vol] 8.2 fL Normal 6.4 - 10.8 fL [facility] HemeAutoSS Platelets (Bld) [#/Vol] 279.0 E9/L Normal 150.0 - 500.0 E9/L [facility] HemeAutoSS RBC (Bld) [#/Vol] 4.5 E12/L Normal 4.3 - 5.9 E12/L [facility] HemeAutoSS WBC corrected for nucl RBC Auto (Bld) [#/Vol] 5.8 E9/L Normal 4.0 - 11.0 E9/L [facility] HemeAutoSS PAP [id number] 04-30-2023 Collection Technique BRUSH-SPATULA Normal [facility] Comment on above: Performed By: #### 3 [id number] ####[facility] [address] [place] [address] Gynecological Body Site ENDOCERVIX Normal [facility] Comment on above: Performed By: #### 3 [id number] ####[facility] [address] [place] [address] Physician Orderon 04-30-2023 Physician Order [id number]#1.00CD:1 27 Normal [facility] Physician Order [id number]#1.00CD:1 27 Normal [facility] BhCG Quanton 04-26-2023 [place] [address] m[IU]/mL High 1-3 [facility] Comment on above: Result Comment: GEST ATIONAL AGE HCG RANGE (mIU/mL) NON- <1-3 0.2-1 WEEKS 5-50 1-2 WEEKS 50-500 2-3 WEEKS 100-5,000 3-4 WEEKS 500-10,000 4-5 WEEKS 1,000-50,000 5-6 WEEKS 10,000-100,000 6-8 WEEKS 15,000-200,000 8-12 WEEKS 10,000-100,000 Performed By: #### 2 594336 ####[facility] [address] [place] [address] CHEMISTRYOrdered By: SYSTEM SYSTEM on 04-26-2023 [place] [address] m[IU]/mL High 1 - 3 mIU/mL [facility] Remisol Consent for Treatmenton 04-14 Consent for Treatment [id number]#1.00CD:12 7 Normal [facility] Discharge Instructionson Discharge Instructions [id number]#1.00CD:1 27 Normal [facility] ED Clinical Summaryon 2022 ED Clinical Summary Normal [facility] ED Note-Physicianon 04-26-20 ED Note-Physician Normal [facility] Comment on above: Result Comment: Elec tronically Signed By: Jos Ugalde PA-C\.br\Date and Time Signed: 04/26/23 10:59 EDT\.br\Electronically Co-Signed By: Laura Noel M.D.\.br\Date and Time Co-Signed: 04/26/23 11:01 EDT ED Patient Education Noteon 04-26-2023 ED Patient Education Note Normal [facility] ED Patient Summaryon 023 ED Patient Summary Normal [facility] UA With Cult Reflexon 2022 Bilirubin Ql (U) Negative Normal Negative [facility] Comment on above: Performed By: #### 1 [id number] ####[facility] [address] [place] [address] Clarity (U) CLEAR Normal Clear [facility] Comment on above: Performed By: #### 1 3386033 ####[facility] [address] [place] [address] Color (U) YELLOW Normal Yellow [facility] Comment on above: Performed By: #### 1 0193408 ####[facility] [address] [place] [address] Crystals LM Ql (Urine sed) Present Normal [facility] Comment on above: Performed By: #### 1 3338760 ####[address] [address] Epithelial cells.squamous LM.HPF (Urine sed) [#/Area] 0-2 Normal 0-2 [facility] Comment on above: Performed By: #### 1 6573004 ####[address] [address] Glucose Test strip (U) [Mass/Vol] Negative Normal Negative [facility] Comment on above: Performed By: #### 1 3461120 ####[address] [address] Hemoglobin Ql (U) Negative Normal Negative [facility] Comment on above: Performed By: #### 1 2623727 ####[address] [address] Ketones (U) [Mass/Vol] Negative Normal Negative [facility] Comment on above: Performed By: #### 1 3605517 ####[address] [address] [place].plasma/[place] .RBC (Bld) [Mass ratio] 0-3 Normal 0-3 [facility] Comment on above: Performed By: #### 1 9279381 ####[address] [address] Mucus Ql (Urine sed) 2+ Normal [facility] Comment on above: Performed By: #### 1 9094361 ####[address] [address] Nitrite Ql (U) Negative Normal Negative [facility] Comment on above: Performed By: #### 1 6022984 ####[address] [address] pH (U) 8.5 [pH] Invalid Interpretation Code 5.0-9.0 [facility] Comment on above: Performed By: #### 1 8443260 ####[facility] [address] [place] [address] Protein (U) [Mass/Vol] Negative Normal Negative [facility] Comment on above: Performed By: #### 1 5839272 ####[facility] [address] [place] [address] Specific gravity (U) [Rel density] 1.015 Invalid Interpretation Code 1.005-1.030 [facility] Comment on above: Performed By: #### 1 2239002 ####[facility] [address] [place] [address] Type of Urine collection method Clean Catch Normal [facility] Comment on above: Performed By: #### 1 5088946 ####[address] [address] Urobilinogen Qn (U) 1.0 {Rola'U}/dL Normal 0.0-1.0 [facility] Comment on above: Performed By: #### 1 6726076 ####[facility] [address] [place] [address] WBC Auto Ql (U) Negative Normal Negative [facility] Comment on above: Performed By: #### 1 9123166 ####[facility] [address] [place] [address] WBC LM.HPF (Urine sed) [#/Area] 0-5 Normal 0-5 [facility] Comment on above: Performed By: #### 1 0209758 ####[facility] [address] [place] [address] URINALYSISOrdered By: An Lassiter on 04-26-2023 Bilirubin [...] AM) Normal Negative [facility] UA Auto SS [place].plasma/[place] .RBC (Bld) [Mass ratio] 0-3 /HPF Normal [...] Desc Clean Catch (04/26/23 9:15 AM) Normal [facility] UA Auto SS Urobilinogen Qn (U) 1.5358428 {Rola'U}/dL Normal 0.0 - 1.0 EU/dL FT UA Auto SS WBC Auto Ql (U) Negative (04/26/23 9:15 AM) Normal Negative [facility] UA Auto SS WBC LM.HPF (Urine sed) [#/Area] 0-5 /HPF Normal 0-5/HPF [facility] UA Auto SS US 1st Trimesteron 04-26-2023 US 1st Trimester Normal [facility] US Transvaginalon 04-26-2023 US Transvaginal Normal [facility] Coding Summary.on 02-02-2023 Coding Summary. Normal [facility] Auto Diffon 01-31-2023 Basophils/100 WBC (Bld) 0.3 % Normal 0.0-2.0 [facility] Comment on above: Order Comment: Order Added by Discern Expert. Performed By: #### 2 477275, 5314872, 77296821, 7374273 ####[address] [address] Basophils/Leukocytes Auto (Bld) [Pure # fraction] 0.0 E9/L Normal 0.0-0.2 [facility] Comment on above: Order Comment: Order Added by Discern Expert. Performed By: #### 2 152224, 0615786, 30141171, 9236871 ####[address] [address] Eosinophils/100 WBC (Bld) 2.8 % Normal 0.0-8.0 [facility] Comment on above: Order Comment: Order Added by Discern Expert. Performed By: #### 2 584050, 7639212, 85502890, 8731060 ####[address] [address] Eosinophils/Leukocytes Auto (Bld) [Pure # fraction] 0.1 E9/L Normal 0.0-0.5 [facility] Comment on above: Order Comment: Order Added by Discern Expert. Performed By: #### 2 292269, 3558502, 91774983, 2741265 ####[address] [address] Lymphocytes/100 WBC (Bld) 30.0 % Normal 14.0-50.0 [facility] Comment on above: Order Comment: Order Added by Discern Expert. Performed By: #### 2 787149, 7658016, 93144358, 4558857 ####[address] [address] Lymphocytes/Leukocytes Auto (Bld) [Pure # fraction] 1.5 E9/L Normal 1.0-4.0 [facility] Comment on above: Order Comment: Order Added by Discern Expert. Performed By: #### 2 385006, 7351501, 38028702, 0750619 ####[address] [place] [address] Monocytes/100 WBC (Bld) 7.0 % Normal 4.0-14.0 [facility] Comment on above: Order Comment: Order Added by Discern Expert. Performed By: #### 2 722695, 5813044, 90816382, 2291971 ####[address] [address] Monocytes/Leukocytes Auto (Bld) [Pure # fraction] 0.4 E9/L Normal 0.2-1.0 [facility] Comment on above: Order Comment: Order Added by Discern Expert. Performed By: #### 2 078366, 7736161, 76423283, 9961809 ####[address] [address] Neutrophils/100 WBC (Bld) 59.9 % Normal 36.0-75.0 [facility] Comment on above: Order Comment: Order Added by Discern Expert. Performed By: #### 2 927518, 2833591, 43131550, 6473711 ####[address] [address] Neutrophils/Leukocytes Auto (Bld) [Pure # fraction] 3.1 E9/L Normal 2.0-7.5 [facility] Comment on above: Order Comment: Order Added by Discern Expert. Performed By: #### 2 190359, 1511367, 78144896, 4684555 ####[address] [address] B hCG Qualon 01-31-2023 Beta hCG Ql Negative Normal [facility] Comment on above: Performed By: #### 2 2826239, 25395511 ####[address] [address] BMPon 01-31-2023 Creatinine [Mass/Vol] 0.8 mg/dL Normal 0.5-1.3 [facility] Comment on above: Performed By: #### 2 508701, 9643986, 09299463, 7260900 ####[facility] [address] [place] [address] Urea nitrogen [Mass/Vol] 9 mg/dL Normal 5-21 [facility] Comment on above: Performed By: #### 2 471239, 3640308, 77700706, 8785228 ####[facility] [address] [place] [address] Urea nitrogen/Creatinine [Mass ratio] 11 No Units Normal 10-20 [facility] Comment on above: Performed By: #### 2 532072, 2512886, 89126098, 8427545 ####[facility] [address] [facility] [place] [address] Anion gap [Moles/Vol] 12 mmol/L Normal 6-16 [facility] Comment on above: Performed By: #### 2 874373, 6555550, 95085061, 5569542 ####[facility] [address] [place] [place] [address] Calcium [Mass/Vol] 9.1 mg/dL Normal 8.9-11.1 [facility] Comment on above: Performed By: #### 2 178057, 6628410, 01987824, 8110372 ####[facility] [address] [place] [address] Chloride [Moles/Vol] 104 mmol/L Normal 101-111 [facility] Comment on above: Performed By: #### 2 481448, 9047486, 20266722, 4895391 ####[facility] [address] [place] [address] CO2 [Moles/Vol] 23 mmol/L Normal 21-31 [facility] Comment on above: Performed By: #### 2 450545, 1259867, 02509235, 5474055 ####[facility] [address] [place] [address] Glucose [Mass/Vol] 84 mg/dL Normal 55-199 [facility] Comment on above: Result Comment: If t his glucose result represents a fasting glucose, interpretation should refer to the following reference range: 55-99 mg/dL Performed By: #### 2 921530, 0595481, 06732757, 0498639 ####[facility] [address] [place] [address] Potassium [Moles/Vol] 3.5 mmol/L Normal 3.5-5.3 [facility] Comment on above: Performed By: #### 2 471703, 4944406, 45704323, 5740983 ####[facility] [address] [place] [address] Sodium [Moles/Vol] 135 mmol/L Normal 135-145 [facility] Comment on above: Performed By: #### 2 778135, 9765910, 85218136, 9437135 ####[address] [address] CBC w/ Auto Diffon Erythrocyte distribution width (RBC) [Ratio] 12.9 % Normal 10.9-14.2 [facility] Comment on above: Performed By: #### 2 225457, 7055807, 63946243, 7198954 ####[address] [place] [address] Hematocrit (Bld) [Volume fraction] 46.4 % High 34.0-46.0 [facility] Comment on above: Performed By: #### 2 479044, 7477036, 63625063, 6960590 ####[address] [place] [address] Hemoglobin (Bld) [Mass/Vol] 15.0 g/dL Normal 12.0-16.0 [facility] Comment on above: Performed By: #### 2 961745, 9715407, 14059832, 9669084 ####[facility] [address] [place] [address] MCH (RBC) [Entitic mass] 28.6 pg Normal 27.0-34.0 [facility] Comment on above: Performed By: #### 2 967405, 0680980, 66696137, 5380820 ####[address] [place] [address] MCHC (RBC) [Mass/Vol] 32.3 g/dL Normal 31.4-36.0 [facility] Comment on above: Performed By: #### 2 231950, 1204114, 35560202, 4951150 ####[address] MCV (RBC) [Entitic vol] 88.5 fL Normal 80.0-100.0 [facility] Comment on above: Performed By: #### 2 657616, 6874300, 19161115, 2581689 ####[address] Platelet mean volume (Bld) [Entitic vol] 7.9 fL Normal 6.4-10.8 [facility] Comment on above: Performed By: #### 2 324700, 9578340, 74257166, 4571032 ####[address] Platelets (Bld) [#/Vol] 300.0 E9/L Normal 150.0-500.0 [facility] Comment on above: Performed By: #### 2 335402, 7896858, 64117772, 2131407 ####[address] [address] RBC (Bld) [#/Vol] 5.2 E12/L Normal 4.3-5.9 [facility] Comment on above: Performed By: #### 2 114269, 8242020, 92844613, 8031125 ####[address] [address] WBC corrected for nucl RBC Auto (Bld) [#/Vol] 5.1 E9/L Normal 4.0-11.0 [facility] Comment on above: Performed By: #### 2 784101, 7536682, 53746842, 4353134 ####[address] [place] [address] CHEMISTRYOrdered By: SYSTEM SYSTEM on 01-31-2023 Anion [...] rate/Area] mL/min/1.73 m2 Normal >=59mL/min/ 1.73 m2 [facility] Chem S Glucose [Mass/Vol] 84 mg/dL Normal [...] Coag CTA Headon 01-31-2023 CTA Head Normal [facility] Consent for Treatmenton 01-13 Consent for Treatment [id number]#1.00CD:12 7 Normal [facility] Discharge Instructionson Discharge Instructions [id number]#1.00CD:1 27 Normal [facility] ED Clinical Summaryon 2022 ED Clinical Summary Normal [facility] ED Note-Physicianon 02-01-20 ED Note-Physician Normal [facility] Comment on above: Result Comment: Elec tronically Signed By: Kristian Guillermo DO.br\Date and Time Signed: 01/31/23 14:00 EDT ED Patient Education Noteon 01-31-2023 ED Patient Education Note Normal [facility] ED Patient Summaryon 023 ED Patient Summary Normal [facility] HEMATOLOGYOrdered By: SYSTEM SYSTEM on 01-31-2023 [...] 3.1 E9/L Normal 2.0 - 7.5 E9/L [facility] HemeAutoSS HEMATOLOGYOrdered By: Janet Reyes on 01-31-2023 [...] Coag (PPP) [Time] 31.3 second(s) Normal 25.1-36.5 [facility] Comment on above: Result Comment: Para [...] the same coagulation reagent and instrumentation as [facility]. Currently there are no coagulation studies available worldwide for children to 14 days, and no normal ranges. Heparin therapeutic range (represented by Anti-Factor Xa activity of 0.2 - 0.4 U/mL) corresponds to PTT of 56.6 - 109.0 sec. Performed By: #### 2 9691821, 20111581 ####[facility] [address] [place] [address] INR Coag (PPP) [Relative time] 1.1 {INR} Invalid Interpretation Code [facility] Comment on above: Result Comment: INR results are specifically intended to assess patients stabilized on long-term Anticoagulation therapy suggested INR?s ?Less Intensive Anticoagulation? 2.0 ? 3.0Conventional Range 3.0 ? 4.5 Performed By: #### 2 6060916, 17407473 ####[facility] [address] [place] [address] PT Coag (PPP) [Time] 12.3 second(s) Normal 9.4-12.5 [facility] Comment on above: Result Comment: 15 [...] the same coagulation reagent and instrumentation as [facility]. Currently there are no coagulation studies available worldwide for children to 14 days, and no normal ranges. Performed By: #### 2 4758606, 81005310 ####[facility] [address] [place] [address] Pre-Arrival Noteon 3 Pre-Arrival Note Normal [facility] SEROLOGYOrdered By: Nova Mccarty on 01-31-2023 Beta hCG Ql Negative (01/31/23 10:14 AM) Normal [facility] Man Sero eGFRon 01-31-2023 GFR/1.73 sq M.predicted among blacks MDRD (S/P/Bld) [Vol rate/Area] mL/min/{1.73_m2} Normal >=59 [facility] Comment on above: Order Comment: Order added by Discern Expert. Result Comment: eGFR is race adjusted. AA=. Performed By: #### 2 413389, 5822646, 00768186, 2955340 ####[facility] [address] [place] [address] GFR/1.73 sq M.predicted among non-blacks MDRD (S/P/Bld) [Vol rate/Area] mL/min/{1.73_m2} Normal >=59 [facility] Comment on above: Order Comment: Order added by Discern Expert. Result Comment: [employer] lucy kidney disease could be indicated at eGFR's of less than 60 mL/min/1.73m2. Kidney failure is indicated at less than 15 mL/min/1.73m2. Performed By: #### 2 462814, 2147989, 47614418, 5265481 ####[facility] [address] [place] [address] Nursing Assessmenton 023 Nursing Assessment [id number]#1.00CD:1 27 Normal [facility] Coding Summary.on 10-02-2022 Coding Summary. Normal [facility] Coding Summary. Normal [facility] Delivery Summaryon 2 Delivery Summary Normal [facility] Comment on above: Result Comment: Elec tronically Signed By: Fabiana MARION, Luis Carlos Byrd\.br\Date and Time Signed: 09/29/22 09:25 EST General Message Officeon General Message Office Normal [facility] Insurance Correspondence Off iceon 09-28-2022 Insurance Correspondence Office [id number]#1.00CD:1 27 Normal [facility] Discharge Instructionson Discharge Instructions [id number]#1.00CD:12 7 Normal [facility] Inpatient Clinical Summaryon 09-27-2022 Inpatient Clinical Summary Normal [facility] Inpatient Patient Summaryon 09-27-2022 Inpatient Patient Summary Normal [facility] CBC w/Indiceson 09-26-2022 Erythrocyte distribution width (RBC) [Ratio] 13.1 % Normal 10.9-14.2 [facility] Comment on above: Performed By: #### 2 895352 ####[facility] [address] [place] [address] Hematocrit (Bld) [Volume fraction] 32.1 % Low 34.0-46.0 [facility] Comment on above: Performed By: #### 2 624534 ####[facility] [address] [place] [address] Hemoglobin (Bld) [Mass/Vol] 11.1 g/dL Low 12.0-16.0 [facility] Comment on above: Performed By: #### 2 825217 ####[facility] [address] [place] [address] MCH (RBC) [Entitic mass] 30.9 pg Normal 27.0-34.0 [facility] Comment on above: Performed By: #### 2 960889 ####[facility] [address] [place] [address] MCHC (RBC) [Mass/Vol] 34.5 g/dL Normal 31.4-36.0 [facility] Comment on above: Performed By: #### 2 432267 ####[facility] [address] [place] [address] MCV (RBC) [Entitic vol] 89.7 fL Normal 80.0-100.0 [facility] Comment on above: Performed By: #### 2 193554 ####[facility] [address] [place] [address] Platelet mean volume (Bld) [Entitic vol] 10.1 fL Normal 6.4-10.8 [facility] [facility] Comment on above: Performed By: #### 2 [id number] ####[facility] [address] [place] [address]275 Platelets (Bld) [#/Vol] 204.0 E9/L Normal 150.0-500.0 [facility] Comment on above: Performed By: #### 2 577832 ####[address] [address] RBC (Bld) [#/Vol] 3.6 E12/L Low 4.3-5.9 [facility] Comment on above: Performed By: #### 2 439268 ####[address] [address] WBC corrected for nucl RBC Auto (Bld) [#/Vol] 23.2 E9/L High 4.0-11.0 [facility] Comment on above: Performed By: #### 2 415905 ####[address] [address] Nursing Assessmenton 022 Nursing Assessment [id number]#1.00CD:12 7 Normal [facility] Progress Note-Physicianon Progress Note-Physician [facility] Comment on above: Result Comment: Elec tronically Signed By: Fabiana MARION, Luis Carlos Byrd\.medina\Date and Time Signed: 09/26/22 08:19 EST Coding Summary.on 09-25-2022 Coding Summary. Normal [facility] Coding Summary. Normal [facility] Consenton 09-25-2022 Consent [id number]#1.00CD:1 27 Normal [facility] Consent for Anesthesiaon Consent for Anesthesia [id number]#1.00CD:12 7 Normal [facility] Discharge Instructionson Discharge Instructions [id number]#1.00CD:1 27 Normal [facility] Help Me Grow Referralon 09-14 Help Me Grow Referral [id number]#1.00CD:12 7 Normal [facility] Recordson Records [id number]#1.00CD:12 7 Normal [facility] Progress Note-Physicianon Progress Note-Physician [facility] Comment on above: Result Comment: Elec tronically Signed By: Jimmy Corcoran Jr., DO\.br\Date and Time Signed: 09/25/22 08:31 EST Progress Note-Physician Normal [facility] Comment on above: Result Comment: Elec tronically Signed By: Jimmy Corcoran Jr., DO\.br\Date and Time Signed: 09/25/22 08:31 EST UA With Cult Reflexon 2021 Bilirubin Ql (U) Negative Normal Negative [facility] Comment on above: Order Comment: Urina ry Catheter Insertion triggered Urinalysis With Culture Reflex order by discern. Performed By: #### 1 [id number] ####[facility] [address] [place] [address] Clarity (U) CLEAR Normal Clear [facility] Comment on above: Order Comment: Urina ry Catheter Insertion triggered Urinalysis With Culture Reflex order by discern. Performed By: #### 1 [id number] ####[facility] [address] [place] [address] Color (U) YELLOW Normal Yellow [facility] Comment on above: Order Comment: Urina ry Catheter Insertion triggered Urinalysis With Culture Reflex order by discern. Performed By: #### 1 4956597 ####[facility] [address] [place] [address] Epithelial cells.squamous LM.HPF (Urine sed) [#/Area] 0-2 Normal 0-2 [facility] Comment on above: Order Comment: Urina ry Catheter Insertion triggered Urinalysis With Culture Reflex order by discern. Performed By: #### 1 [id number] ####[facility] [address] [place] [address] 41416 Glucose Test strip (U) [Mass/Vol] Negative Normal Negative [facility] Comment on above: Order Comment: Urina ry Catheter Insertion triggered Urinalysis With Culture Reflex order by discern. Performed By: #### 1 [id number] ####[facility] [address] [place] [address]609 Hemoglobin Ql (U) Negative Normal Negative [facility] Comment on above: Order Comment: Urina ry Catheter Insertion triggered Urinalysis With Culture Reflex order by discern. Performed By: #### 1 [id number] ####[facility] [address] [place] [address] Ketones (U) [Mass/Vol] Negative Normal Negative [facility] Comment on above: Order Comment: Urina ry Catheter Insertion triggered Urinalysis With Culture Reflex order by discern. Performed By: #### 1 [id number] ####[facility] [address] [place] [address] [place].plasma/[place] .RBC (Bld) [Mass ratio] 0-3 Normal 0-3 [facility] Comment on above: Order Comment: Urina ry Catheter Insertion triggered Urinalysis With Culture Reflex order by discern. Performed By: #### 1 7939397 ####[facility] [address] [place] [address] Nitrite Ql (U) Negative Normal Negative [facility] Comment on above: Order Comment: Urina ry Catheter Insertion triggered Urinalysis With Culture Reflex order by discern. Performed By: #### 1 7750452 ####[facility] [address] [place] [address] pH (U) 7.0 [pH] Invalid Interpretation Code 5.0-9.0 [facility] Comment on above: Order Comment: Urina ry Catheter Insertion triggered Urinalysis With Culture Reflex order by discern. Performed By: #### 1 8393188 ####[address] [address] Protein (U) [Mass/Vol] Negative Normal Negative [facility] Comment on above: Order Comment: Urina ry Catheter Insertion triggered Urinalysis With Culture Reflex order by discern. Performed By: #### 1 6658869 ####[place] [address] Specific gravity (U) [Rel density] <=1.005 Invalid Interpretation Code 1.005-1.030 [facility] Comment on above: Order Comment: Urina ry Catheter Insertion triggered Urinalysis With Culture Reflex order by discern. Performed By: #### 1 [id number] ####[place] [address] Type of Urine collection method Vyas Normal [facility] Comment on above: Order Comment: Urina ry Catheter Insertion triggered Urinalysis With Culture Reflex order by discern. Performed By: #### 1 6052158 ####[place] [address] Urobilinogen Qn (U) 0.2 {Rola'U}/dL Normal 0.0-1.0 [facility] Comment on above: Order Comment: Urina ry Catheter Insertion triggered Urinalysis With Culture Reflex order by discern. Performed By: #### 1 9944450 ####[place] [address]457 WBC Auto Ql (U) Negative Normal Negative [facility] Comment on above: Order Comment: Urina ry Catheter Insertion triggered Urinalysis With Culture Reflex order by discern. Performed By: #### 1 3568324 ####[place] [address]457 WBC LM.HPF (Urine sed) [#/Area] 0-5 Normal 0-5 [facility] Comment on above: Order Comment: Urina ry Catheter Insertion triggered Urinalysis With Culture Reflex order by discern. Performed By: #### 1 2983276 ####[address] [place] [address] Bilirubin Ql (U) Negative Normal Negative [facility] Comment on above: Performed By: #### 1 1868529 ####[facility] [address] [place] [address] Clarity (U) CLEAR Normal Clear [facility] Comment on above: Performed By: #### 1 2121908 ####[facility] [address] [place] [address] Color (U) YELLOW Normal Yellow [facility] Comment on above: Performed By: #### 1 7726381 ####[address] [address] Epithelial cells.squamous LM.HPF (Urine sed) [#/Area] 0-2 Normal 0-2 [facility] Comment on above: Performed By: #### 1 1696633 ####[facility] [address] [place] [address] Glucose Test strip (U) [Mass/Vol] Negative Normal Negative [facility] Comment on above: Performed By: #### 1 5223848 ####[facility] [address] [place] [address] 90673 Hemoglobin Ql (U) Negative Normal Negative [facility] Comment on above: Performed By: #### 1 1307172 ####[facility] [address] [place] [address]692 Ketones (U) [Mass/Vol] Negative Normal Negative [facility] Comment on above: Performed By: #### 1 8995084 ####[facility] [address] [place] [address] [place].plasma/[place] .RBC (Bld) [Mass ratio] 0-3 Normal 0-3 [facility] Comment on above: Performed By: #### 1 8870632 ####[facility] [address] [place] [address] 10655 Nitrite Ql (U) Negative Normal Negative [facility] Comment on above: Performed By: #### 1 3925963 ####[address] [address] pH (U) 6.0 [pH] Invalid Interpretation Code 5.0-9.0 [facility] Comment on above: Performed By: #### 1 8421811 ####[place] [address] Protein (U) [Mass/Vol] Negative Normal Negative [facility] Comment on above: Performed By: #### 1 0485907 ####[place] [address] Specific gravity (U) [Rel density] <=1.005 Invalid Interpretation Code 1.005-1.030 [facility] Comment on above: Performed By: #### 1 1605086 ####[place] [address] Type of Urine collection method Clean Catch Normal [facility] Comment on above: Performed By: #### 1 2996118 ####[place] [address] Urobilinogen Qn (U) 0.2 {Rola'U}/dL Normal 0.0-1.0 [facility] Comment on above: Performed By: #### 1 4442354 ####[place] [address]457 WBC Auto Ql (U) Negative Normal Negative [facility] Comment on above: Performed By: #### 1 7085978 ####[place] [address]457 WBC LM.HPF (Urine sed) [#/Area] 0-5 Normal 0-5 [facility] Comment on above: Performed By: #### 1 6627227 ####[address] [address] Vaccinationson 09-25-2022 Vaccinations [id number]#1.00CD:1 27 Normal [facility] Vaccinations [id number]#1.00CD:1 27 Normal [facility] ABO/Rhon 09-24-2022 ABO/Rh Positive Invalid Interpretation Code [facility] Comment on above: Performed By: #### 1 [id number], [id number], [id number], [id number] ####[facility] [address] [place] [address] ABO/Rh History Checkon 09-24 ABO/Rh History Check Verified Hx Blood Type Normal [facility] Comment on above: Performed By: #### 1 5381968, [id number], [id number], [id number] ####[facility] [address] [place] [address] ABSCon 09-24-2022 ABSC Gel Interp Negative Normal [facility] Comment on above: Performed By: #### 1 6382217, [id number], 82373792, 5083967 ####[address] [address] Blood Bank ID#on 09-24-2022 BBID# [id number] Invalid Interpretation Code [facility] Comment on above: Performed By: #### 1 6338491, [id number], [id number], 4296154 ####[place] [address] [place] [address] CBC w/Indiceson 09-24-2022 Erythrocyte distribution width (RBC) [Ratio] 13.0 % Normal 10.9-14.2 [facility] Comment on above: Performed By: #### 2 414613 ####[address] [address] Hematocrit (Bld) [Volume fraction] 38.0 % Normal 34.0-46.0 [facility] Comment on above: Performed By: #### 2 547571 ####[place] [address] [place] [address] Hemoglobin (Bld) [Mass/Vol] 12.8 g/dL Normal 12.0-16.0 [facility] Comment on above: Performed By: #### 2 661132 ####[place] [address] [address] MCH (RBC) [Entitic mass] 31.3 pg Normal 27.0-34.0 [facility] Comment on above: Performed By: #### 2 921750 ####[address] [address] MCHC (RBC) [Mass/Vol] 33.7 g/dL Normal 31.4-36.0 [facility] Comment on above: Performed By: #### 2 387921 ####[address] [address] MCV (RBC) [Entitic vol] 92.9 fL Normal 80.0-100.0 [facility] Comment on above: Performed By: #### 2 446268 ####[address] [address] Platelet mean volume (Bld) [Entitic vol] 9.8 fL Normal 6.4-10.8 [facility] Comment on above: Performed By: #### 2 007653 ####[address] [address] Platelets (Bld) [#/Vol] 238.0 E9/L Normal 150.0-500.0 [facility] Comment on above: Performed By: #### 2 783954 ####[address] [address] RBC (Bld) [#/Vol] 4.1 E12/L Low 4.3-5.9 [facility] Comment on above: Performed By: #### 2 702336 ####[address] [address] WBC corrected for nucl RBC Auto (Bld) [#/Vol] 12.8 E9/L High 4.0-11.0 [facility] Comment on above: Performed By: #### 2 204378 ####[address] [address] Consent for Treatmenton 09-14 Consent for Treatment [id number]#1.00CD:12 7 [facility] Consent for Treatment [id number]#1.00CD:1 27 [facility] Consent for Treatmenton Consent for Treatment [id number]#1.00CD:12 7 [facility] Discharge Instructionson Discharge Instructions [id number]#1.00CD:12 7 [facility] Inpatient Clinical Summaryon 09-22-2022 Inpatient Clinical Summary [facility] Inpatient Patient Summaryon 09-22-2022 Inpatient Patient Summary [facility] Insurance Correspondence Off iceon 09-22-2022 Insurance Correspondence Office [id number]#1.00CD: 127 [facility] Nursing Assessmenton 022 Nursing Assessment [id number]#1.00CD:1 27 [facility] Nursing Assessment [id number]#1.00CD:12 7 [facility] Discharge Instructionson Discharge Instructions [id number]#1.00CD:127 [facility] Inpatient Clinical Summaryon 09-20-2022 Inpatient Clinical Summary [facility] Inpatient Patient Summaryon 09-20-2022 Inpatient Patient Summary [facility] Insurance Correspondence Off iceon 09-20-2022 Insurance Correspondence Office [id number]#1.00CD:127 [facility] Consent for Treatmenton Consent for Treatment [id number]#1.00CD:12 7 [facility] Discharge Instructionson Discharge Instructions [id number]#1.00CD:1 27 Normal [facility] Inpatient Clinical Summaryon 09-19-2022 Inpatient Clinical Summary Normal [facility] Inpatient Patient Summaryon 09-19-2022 Inpatient Patient Summary Normal [facility] Insurance Correspondenceon 1 11-20-2021 Insurance Correspondence [id number]#1.00CD:1 27 Normal [facility] UA With Cult Reflexon 2021 Bilirubin Ql (U) Negative Normal Negative [facility] Comment on above: Performed By: #### 1 3254557 ####[facility] [address] [place] [address] Clarity (U) CLEAR Normal Clear [facility] Comment on above: Performed By: #### 1 4405202 ####[facility] [address] [place] [address] Color (U) YELLOW Normal Yellow [facility] Comment on above: Performed By: #### 1 4065723 ####[facility] [address] [place] [address] Epithelial cells.squamous LM.HPF (Urine sed) [#/Area] 0-2 Normal 0-2 [facility] Comment on above: Performed By: #### 1 8939149 ####[facility] [address] [place] [address] Glucose Test strip (U) [Mass/Vol] Negative Normal Negative [facility] Comment on above: Performed By: #### 1 7572215 ####[facility] [address] [place] [address] Hemoglobin Ql (U) Negative Normal Negative [facility] Comment on above: Performed By: #### 1 4625614 ####[facility] [address] [place] [address] Ketones (U) [Mass/Vol] Negative Normal Negative [facility] Comment on above: Performed By: #### 1 4760522 ####[address] [address] [place].plasma/[place] .RBC (Bld) [Mass ratio] 0-3 Normal 0-3 [facility] Comment on above: Performed By: #### 1 0925728 ####[address] [address] Nitrite Ql (U) Negative Normal Negative [facility] Comment on above: Performed By: #### 1 0838630 ####[address] [address] pH (U) 7.0 [pH] Invalid Interpretation Code 5.0-9.0 [facility] Comment on above: Performed By: #### 1 1632040 ####[address] [address] Protein (U) [Mass/Vol] Negative Normal Negative [facility] Comment on above: Performed By: #### 1 6882289 ####[address] [address] Specific gravity (U) [Rel density] <=1.005 Invalid Interpretation Code 1.005-1.030 [facility] Comment on above: Performed By: #### 1 6246012 ####[address] [address] Type of Urine collection method Clean Catch Normal [facility] Comment on above: Performed By: #### 1 1279032 ####[address] [address] Urobilinogen Qn (U) 0.2 {Rola'U}/dL Normal 0.0-1.0 [facility] Comment on above: Performed By: #### 1 8816189 ####[address] [address] WBC Auto Ql (U) Negative Normal Negative [facility] Comment on above: Performed By: #### 1 9044790 ####[address] [address] WBC LM.HPF (Urine sed) [#/Area] 0-5 Normal 0-5 [facility] Comment on above: Performed By: #### 1 1500020 ####[facility] [address] [place] [address] URINALYSISOrdered By: Jeanette Castle on 09-19-2022 Bilirubin [...] AM) Normal Negative [facility] UA Auto SS [place].plasma/[place] .RBC (Bld) [Mass ratio] 0-3 /HPF Normal [...] [facility] UA Auto SS Urobilinogen Qn (U) 0.8495043 {Rola'U}/dL Normal 0.0 - 1.0 EU/dL [facility] UA Auto SS WBC Auto Ql (U) Negative (09/19/22 1:44 AM) Normal Negative [facility] UA Auto SS WBC LM.HPF (Urine sed) [#/Area] 0-5 /HPF Normal 0-5/HPF [facility] UA Auto SS Coding Summary.on 09-18-2022 Coding Summary. Normal [facility] Nursing Assessmenton Nursing Assessment [id number]#1.00CD:12 7 Normal [facility] Coding Summary.on 09-15-2022 Coding Summary. Normal [facility] Coding Summary.on 09-14-2022 Coding Summary. Normal [facility] Consent for Treatmenton Consent for Treatment [id number]#1.00CD:12 7 [facility] Consent for Treatment [id number]#1.00CD:12 7 Normal [facility] Discharge Instructionson Discharge Instructions [id number]#1.00CD:12 7 Normal [facility] Inpatient Clinical Summaryon 09-14-2022 Inpatient Clinical Summary Normal [facility] Inpatient Patient Summaryon 09-14-2022 Inpatient Patient Summary [facility] Insurance Correspondence Off iceon 09-14-2022 Insurance Correspondence Office [id number]#1.00CD:12 7 Normal [facility] Nursing Assessmenton Nursing Assessment [id number]#1.00CD:1 27 Normal [facility] UA With Cult Reflexon 2021 Bacteria LM Ql (Urine sed) TRACE Normal Trace [facility] Comment on above: Performed By: #### 1 7495367 ####[facility] [address] [place] [address] Bilirubin Ql (U) Negative Normal Negative [facility] Comment on above: Performed By: #### 1 4917697 ####[facility] [address] [place] [address] Clarity (U) CLEAR Normal Clear [facility] Comment on above: Performed By: #### 1 3296527 ####[facility] [address] [place] [address] Color (U) YELLOW Normal Yellow [facility] Comment on above: Performed By: #### 1 6693221 ####[facility] [address] [place] [address] Crystals LM Ql (Urine sed) Present Normal [facility] Comment on above: Performed By: #### 1 7999562 ####[address] [address] Epithelial cells.squamous LM.HPF (Urine sed) [#/Area] 0-2 Normal 0-2 [facility] Comment on above: Performed By: #### 1 0772398 ####[facility] [address] [place] [address] Glucose Test strip (U) [Mass/Vol] Negative Normal Negative [facility] Comment on above: Performed By: #### 1 1921211 ####[facility] [address] [place] [address] Hemoglobin Ql (U) Negative Normal Negative [facility] Comment on above: Performed By: #### 1 5998267 ####[facility] [address] [place] [address] Ketones (U) [Mass/Vol] Negative Normal Negative [facility] Comment on above: Performed By: #### 1 6792692 ####[facility] [address] [place] [address] [place].plasma/[place] .RBC (Bld) [Mass ratio] 0-3 Normal 0-3 [facility] Comment on above: Performed By: #### 1 7911912 ####[facility] [address] [place] [address] Mucus Ql (Urine sed) TRACE Normal [facility] Comment on above: Performed By: #### 1 9308192 ####[place] [address] [address] Nitrite Ql (U) Negative Normal Negative [facility] Comment on above: Performed By: #### 1 4740449 ####[address] [address] pH (U) 6.0 [pH] Invalid Interpretation Code 5.0-9.0 [facility] Comment on above: Performed By: #### 1 6582237 ####[place] [address]457 Protein (U) [Mass/Vol] Negative Normal Negative [facility] Comment on above: Performed By: #### 1 8986528 ####[place] [address] Specific gravity (U) [Rel density] <=1.005 Invalid Interpretation Code 1.005-1.030 [facility] Comment on above: Performed By: #### 1 0285772 ####[place] [address] Type of Urine collection method Random Urine Normal [facility] Comment on above: Performed By: #### 1 5608229 ####[place] [address]457 Urobilinogen Qn (U) 0.2 {Rola'U}/dL Normal 0.0-1.0 [facility] Comment on above: Performed By: #### 1 7105478 ####[place] [address]457 WBC Auto Ql (U) TRACE Abnormal Negative [facility] Comment on above: Performed By: #### 1 9035941 ####[address] [address] WBC LM.HPF (Urine sed) [#/Area] 0-5 Normal 0-5 [facility] Comment on above: Performed By: #### 1 1679294 ####[address] [address] URINALYSISOrdered By: An Lassiter on 09-14-2022 Bacteria [...] AM) Normal Negative [facility] UA Auto SS [place].plasma/[place] .RBC (Bld) [Mass ratio] 0-3 /HPF Normal [...] [facility] UA Auto SS Urobilinogen Qn (U) 0.0409255 {Rola'U}/dL Normal 0.0 - 1.0 EU/dL [facility] UA Auto SS WBC Auto Ql (U) Trace *ABN* (09/14/22 9:25 AM) Invalid Interpretation Code Negative [facility] UA Auto SS WBC LM.HPF (Urine sed) [#/Area] 0-5 /HPF Normal 0-5/HPF [facility] UA Auto SS Coding Summary.on 09-12-2022 Coding Summary. Normal [facility] Consent for Treatmenton 08-16 Consent for Treatment [id number]#1.00CD:12 7 Normal [facility] Discharge Instructionson Discharge Instructions [id number]#1.00CD:12 7 [facility] Discharge Instructions [id number]#1.00CD:1 27 Normal [facility] Inpatient Clinical Summaryon 09-12-2022 Inpatient Clinical Summary Normal [facility] Inpatient Patient Summaryon 09-12-2022 Inpatient Patient Summary Normal [facility] Insurance Correspondenceon 11-12-2021 Insurance Correspondence [id number]#[id number]:12 7 [facility] Insurance Correspondence Off iceon 09-12-2022 Insurance Correspondence Office [id number]#1.00CD:1 27 Normal [facility] Nursing Assessmenton 022 Nursing Assessment [id number]#1.00CD:1 27 Normal [facility] UA With Cult Reflexon 2021 Bilirubin Ql (U) Negative Normal Negative [facility] Comment on above: Performed By: #### 1 [id number] ####[facility] [address] [place] [address] Clarity (U) CLEAR Normal Clear [facility] Comment on above: Performed By: #### 1 0471791 ####[facility] [address] [place] [address] Color (U) YELLOW Normal Yellow [facility] Comment on above: Performed By: #### 1 [id number] ####[facility] [address] [place] [address] Crystals LM Ql (Urine sed) Present Normal [facility] Comment on above: Performed By: #### 1 2887608 ####[address] [place] [address] Epithelial cells.squamous LM.HPF (Urine sed) [#/Area] 3-4 Normal 0-2 [facility] Comment on above: Performed By: #### 1 3967049 ####[facility] [address] [place] [address] Glucose Test strip (U) [Mass/Vol] Negative Normal Negative [facility] Comment on above: Performed By: #### 1 6018961 ####[address] [address] Hemoglobin Ql (U) Negative Normal Negative [facility] Comment on above: Performed By: #### 1 6746234 ####[facility] [address] [place] [address] Ketones (U) [Mass/Vol] Negative Normal Negative [facility] Comment on above: Performed By: #### 1 4751799 ####[facility] [address] [place] [address] [place].plasma/[place] .RBC (Bld) [Mass ratio] 0-3 Normal 0-3 [facility] Comment on above: Performed By: #### 1 0810456 ####[facility] [address] [place] [address] Nitrite Ql (U) Negative Normal Negative [facility] Comment on above: Performed By: #### 1 3328488 ####[address] [place] [address] pH (U) 6.0 [pH] Invalid Interpretation Code 5.0-9.0 [facility] Comment on above: Performed By: #### 1 7776419 ####[facility] [address] [place] [address] Protein (U) [Mass/Vol] Negative Normal Negative [facility] Comment on above: Performed By: #### 1 9687182 ####[facility] [address] [place] [address] Specific gravity (U) [Rel density] 1.010 Invalid Interpretation Code 1.005-1.030 [facility] Comment on above: Performed By: #### 1 4765638 ####[facility] [address] [place] [address] Type of Urine collection method Clean Catch Normal [facility] Comment on above: Performed By: #### 1 6737572 ####[facility] [address] [place] [address] Urobilinogen Qn (U) 0.2 {Rola'U}/dL Normal 0.0-1.0 [facility] Comment on above: Performed By: #### 1 1585753 ####[place] [address] WBC Auto Ql (U) Negative Normal Negative [facility] Comment on above: Performed By: #### 1 3493060 ####[facility] [address] [place] [address] WBC LM.HPF (Urine sed) [#/Area] 0-5 Normal 0-5 [facility] Comment on above: Performed By: #### 1 6621086 ####[facility] [address] [place], [place] [address] URINALYSISOrdered By: Jose Miguel nelson on 09-12-2022 [...] PM) Normal Negative [facility] UA Auto SS [place].plasma/[place] .RBC (Bld) [Mass ratio] 0-3 /HPF Normal [...] FT UA Auto SS Urobilinogen Qn (U) 0.2310427 {Rola'U}/dL Normal 0.0 - 1.0 EU/dL [facility] UA Auto SS WBC Auto Ql (U) Negative (09/12/22 8:15 PM) Normal Negative [facility] UA Auto SS WBC LM.HPF (Urine sed) [#/Area] 0-5 /HPF Normal 0-5/HPF [facility] UA Auto SS Coding Summary.on 09-11-2022 Coding Summary. Normal [facility] Consent for Treatmenton 08-16 Consent for Treatment [id number]#1.00CD:12 7 Normal [facility] Discharge Instructionson Discharge Instructions [id number]#1.00CD:1 27 Normal [facility] Inpatient Clinical Summaryon 09-08-2022 Inpatient Clinical Summary Normal [facility] Inpatient Patient Summaryon 09-08-2022 Inpatient Patient Summary Normal [facility] Coding Summary.on 09-06-2022 Coding Summary. Normal [facility] Discharge Instructionson Discharge Instructions [id number]#1.00CD:1 27 Normal [facility] ED Clinical Summaryon 2021 ED Clinical Summary Normal [facility] ED Note-Nursingon 09-06-2022 ED Note-Nursing pt given d/c instruc tions and educated on importance of follow up. pt educated on new medications. pt verbalized understanding of instructions and readiness for d/c. pt walked self ambulatory to waiting room in stable condition Normal [facility] ED Patient Education Noteon 09-06-2022 ED Patient Education Note Normal [facility] ED Patient Summaryon 022 ED Patient Summary Normal [facility] XR Chest Single Viewon 09-06 XR Chest Single View Normal [facility] Auto Diffon 09-05-2022 Basophils/100 WBC (Bld) 1.0 % Normal 0.0-2.0 [facility] Comment on above: Order Comment: Order Added by Discern Expert. Performed By: #### 2 493642, 08018699, 42603005, 3918763, 41224960, 77205777, 6601102 ####[facility] [address] [place] [address] Basophils/Leukocytes Auto (Bld) [Pure # fraction] 0.1 E9/L Normal 0.0-0.2 [facility] Comment on above: Order Comment: Order Added by Discern Expert. Performed By: #### 2 214763, 65350557, 35888592, 9344283, 66647283, 11218668, 8882975 ####[facility] [address] [place] [address] Eosinophils/100 WBC (Bld) 1.4 % Normal 0.0-8.0 [facility] Comment on above: Order Comment: Order Added by Discern Expert. Performed By: #### 2 809229, 73629105, 42438384, 1503717, 13783391, 33463941, 3626158 ####[facility] [address] [place] [address] Eosinophils/Leukocytes Auto (Bld) [Pure # fraction] 0.2 E9/L Normal 0.0-0.5 [facility] Comment on above: Order Comment: Order Added by Discern Expert. Performed By: #### 2 578974, 92529398, 78985954, 3274842, 61536146, 07488678, 4974756 ####[address] [place] [address] Lymphocytes/100 WBC (Bld) 18.8 % Normal 14.0-50.0 [facility] Comment on above: Order Comment: Order Added by Discern Expert. Performed By: #### 2 857153, 13651376, 04877704, 8743461, 08608001, 95695839, 8868480 ####[address] [address] Lymphocytes/Leukocytes Auto (Bld) [Pure # fraction] 2.0 E9/L Normal 1.0-4.0 [facility] Comment on above: Order Comment: Order Added by Discern Expert. Performed By: #### 2 648741, 50471768, 90866536, 9228067, 34809343, 77561648, 2051051 ####[address] [place] [address] Monocytes/100 WBC (Bld) 6.8 % Normal 4.0-14.0 [facility] Comment on above: Order Comment: Order Added by Discern Expert. Performed By: #### 2 649532, 93410150, 69076605, 1915704, 20154643, 72102743, 4919912 ####[address] [address] Monocytes/Leukocytes Auto (Bld) [Pure # fraction] 0.7 E9/L Normal 0.2-1.0 [facility] Comment on above: Order Comment: Order Added by Discern Expert. Performed By: #### 2 732820, 66089533, 33736086, 0560276, 66750596, 21651688, 3124356 ####[facility] [address] [place] [address] Neutrophils/100 WBC (Bld) 72.0 % Normal 36.0-75.0 [facility] Comment on above: Order Comment: Order Added by Discern Expert. Performed By: #### 2 392228, 10096525, 08633898, 1110286, 49082528, 32715145, 8066594 ####[facility] [address] [place] [address] Neutrophils/Leukocytes Auto (Bld) [Pure # fraction] 7.8 E9/L High 2.0-7.5 [facility] Comment on above: Order Comment: Order Added by Discern Expert. Performed By: #### 2 036039, 62189608, 55297087, 8818281, 49871883, 05805103, 8829682 ####[facility] [address] [place] [address] BMPon 09-05-2022 Creatinine [Mass/Vol] 0.7 mg/dL Normal 0.5-1.3 [facility] Comment on above: Performed By: #### 2 313645, 07878591, 58960563, 4905095, 15936385, 18451184, 8636690 ####[facility] [address] [place] [address] Urea nitrogen [Mass/Vol] 7 mg/dL Normal 5-21 [facility] Comment on above: Performed By: #### 2 819262, 60823024, 86683439, 7409262, 47200064, 09127818, 2829823 ####[facility] [address] [place] [address] Urea nitrogen/Creatinine [Mass ratio] 10 No Units Normal 10-20 [facility] Comment on above: Performed By: #### 2 863304, 72928297, 66350018, 0911067, 96876517, 58180164, 4918486 ####[facility] [address] [place] [address] Anion gap [Moles/Vol] 10 mmol/L Normal 6-16 [facility] Comment on above: Performed By: #### 2 535191, 10474324, 53020213, 8003389, 15020279, 69425576, 6947665 ####[facility] [address] [place] [address] Calcium [Mass/Vol] 8.8 mg/dL Low 8.9-11.1 [facility] Comment on above: Performed By: #### 2 457638, 90402121, 52724560, 1565860, 89731734, 48595879, 4627756 ####[facility] [address] [place] [address] Chloride [Moles/Vol] 102 mmol/L Normal 101-111 [facility] Comment on above: Performed By: #### 2 150842, 24322437, 11693811, 5121372, 22492531, 84455401, 0260585 ####[facility] [address] [place] [address] CO2 [Moles/Vol] 22 mmol/L Normal 21-31 [facility] Comment on above: Performed By: #### 2 345099, 39700391, 51933504, 5125545, 28195538, 37229338, 7485959 ####[facility] [address] [place] [address] Glucose [Mass/Vol] 87 mg/dL Normal 55-199 [facility] Comment on above: Result Comment: If t his glucose result represents a fasting glucose, interpretation should refer to the following reference range: 55-99 mg/dL Performed By: #### 2 492066, 31393750, 24851334, 3317147, 61747728, 73085731, 9813209 ####[facility] [address] [place] [address] Potassium [Moles/Vol] 3.3 mmol/L Low 3.5-5.3 [facility] Comment on above: Performed By: #### 2 191930, 98930147, 62177050, 2277111, 85921492, 00726983, 3792853 ####[facility] [address] [place] [address] Sodium [Moles/Vol] 131 mmol/L Low 135-145 [facility] Comment on above: Performed By: #### 2 086152, 44010660, 79315454, 9922352, 29087754, 46293258, 4528856 ####[facility] [address] [place] [address] BNPon 09-05-2022 Int Ctr BNP Pass Normal [facility] Comment on above: Performed By: #### 2 814236, 18919073, 09179794, 1176980, 23845118, 55948384, 3143533 ####[facility] [address] [place] [address] Natriuretic peptide B (Bld) [Mass/Vol] 8 pg/mL Normal 5-80 [facility] Comment on above: Performed By: #### 2 142903, 16107527, 25938962, 4837456, 55811588, 68797724, 5352917 ####[facility] [address] [place] [address] CBC w/ Auto Diffon Erythrocyte distribution width (RBC) [Ratio] 12.7 % Normal 10.9-14.2 [facility] Comment on above: Performed By: #### 2 995765, 37409276, 58909413, 2992485, 87530053, 88354389, 4123274 ####[facility] [address] [place] [address] Hematocrit (Bld) [Volume fraction] 34.2 % Normal 34.0-46.0 [facility] Comment on above: Performed By: #### 2 647551, 16126273, 39077208, 0211153, 86411703, 94915322, 2015246 ####[address] [address] Hemoglobin (Bld) [Mass/Vol] 12.3 g/dL Normal 12.0-16.0 [facility] Comment on above: Performed By: #### 2 900239, 79957900, 44065144, 7920962, 46394142, 59351077, 6601486 ####[address] [address] MCH (RBC) [Entitic mass] 31.8 pg Normal 27.0-34.0 [facility] Comment on above: Performed By: #### 2 562238, 88786858, 72393457, 9097943, 95741658, 63609315, 4523866 ####[address] [address] MCHC (RBC) [Mass/Vol] 35.9 g/dL Normal 31.4-36.0 [facility] Comment on above: Performed By: #### 2 967083, 35263957, 70513047, 5169406, 95688005, 61914640, 0534091 ####[address] [address] MCV (RBC) [Entitic vol] 88.7 fL Normal 80.0-100.0 [facility] Comment on above: Performed By: #### 2 037621, 25408188, 62043436, 7104891, 38584349, 75081690, 3303870 ####[address] [address] Platelet mean volume (Bld) [Entitic vol] 9.8 fL Normal 6.4-10.8 [facility] Comment on above: Performed By: #### 2 820239, 57772225, 45517749, 3618401, 49537477, 95005611, 2556231 ####[address] [address] Platelets (Bld) [#/Vol] 215.0 E9/L Normal 150.0-500.0 [facility] Comment on above: Performed By: #### 2 852037, 15099961, 68589692, 7421448, 76166287, 22504558, 6134143 ####[facility] [address] [place] [address] RBC (Bld) [#/Vol] 3.9 E12/L Low 4.3-5.9 [facility] Comment on above: Performed By: #### 2 983976, 58154854, 52356876, 3241524, 13222080, 29378679, 2410157 ####[facility] [address] [place] [address] WBC corrected for nucl RBC Auto (Bld) [#/Vol] 10.9 E9/L Normal 4.0-11.0 [facility] Comment on above: Result Comment: Slid e reviewed by ts. Performed By: #### 2 945300, 58027408, 34237556, 7856364, 08274437, 14685479, 7926332 ####[facility] [address] [place] [address] CHEMISTRYOrdered By: SYSTEM SYSTEM on 09-05-2022 Anion gap [Moles/Vol] 10 mmol/L Normal 6 - 16 mEq/L [facility] Remisol Calcium [Mass/Vol] 8.8 mg/dL Low 8.9 [...] rate/Area] mL/min/1.73 m2 Normal >=59mL/min/ 1.73 m2 [facility] Chem S Glucose [Mass/Vol] 87 mg/dL Normal 55 - 199 mg/dL [facility] Remisol Potassium [Moles/Vol] 3.3 mmol/L Low 3.5 - 5.3 mmol/L [facility] Remisol Sodium [Moles/Vol] 131 mmol/L Low 135 - 145 mmol/L [facility] Remisol Troponin I.cardiac [Mass/Vol] 4.70 pg/mL Low 10.10 - 27.10 pg/mL [facility] Remisol Urea nitrogen [Mass/Vol] 7 mg/dL Normal 5 - 21 mg/dL [facility] Remisol Urea nitrogen/Creatinine [Mass ratio] 10 mg/mg Normal 10 - 20 [facility] Remisol CHEMISTRYOrdered By: Temi hayden on 09-05-2022 Natriuretic peptide B (Bld) [Mass/Vol] 8 pg/mL Normal 5 - 80 pg/mL [facility] HemeManSS COAGULATIONOrdered By: Yamile Li on 09-05-2022 aPTT Coag (PPP) [Time] 27.1 s Normal 25.1 - 36.5 second(s) [facility] Auto Coag INR Coag (PPP) [Relative time] 0.9 {INR} Invalid Interpretation Code [facility] Auto Coag PT Coag (PPP) [Time] 10.3 s Normal 9.4 - 1 2.5 second(s) [facility] Auto Coag Consent for Treatmenton 08-16 Consent for Treatment [id number]#1.00CD:12 7 Normal [facility] ED Note-Nursingon 09-05-2022 ED Note-Nursing Normal [facility] ED Note-Physicianon 09-05-20 ED Note-Physician Normal [facility] Comment on above: Result Comment: Elec tronically Signed By: Gopi Rodriguez DO\brandi\Date and Time Signed: 09/05/22 21:46 EST Group B Strep by PCRon 09-05 Group B Strep colonization by PCR Negative Normal Negative [facility] Comment on above: Performed By: #### 4 [id number] ####[facility] [address] [place] [address] HEMATOLOGYOrdered By: SYSTEM SYSTEM on 09-05-2022 Basophils/100 [...] Coag (PPP) [Time] 27.1 second(s) Normal 25.1-36.5 [facility] Comment on above: Result Comment: Para [...] the same coagulation reagent and instrumentation as [facility]. Currently there are no coagulation studies available worldwide for children to 14 days, and no normal ranges. Heparin therapeutic range (represented by Anti-Factor Xa activity of 0.2 - 0.4 U/mL) corresponds to PTT of 56.6 - 109.0 sec. Performed By: #### 2 478922, 08357949, 06856393, 0184502, 23809085, 27444579, 1093096 ####[facility] [address] [place] [address] INR Coag (PPP) [Relative time] 0.9 {INR} Invalid Interpretation Code [facility] Comment on above: Result Comment: INR results are specifically intended to assess patients stabilized on long-term Anticoagulation therapy suggested INR?s ?Less Intensive Anticoagulation? 2.0 ? 3.0Conventional Range 3.0 ? 4.5 Performed By: #### 2 661792, 43804179, 62726914, 6820635, 18058947, 09859082, 4033979 ####[facility] [address] [place] [address] PT Coag (PPP) [Time] 10.3 second(s) Normal 9.4-12.5 [facility] Comment on above: Result Comment: 15 [...] the same coagulation reagent and instrumentation as [facility]. Currently there are no coagulation studies available worldwide for children to 14 days, and no normal ranges. Performed By: #### 2 218441, 16053636, 55202284, 4919671, 53051110, 33440389, 7372167 ####[facility] [address] [place] [address] Rapid COVID Antigen ([facility])on 09-05-2022 Rapid COV Int NEG Ctl Pass Normal Fis [facility] Comment on above: Performed By: #### 2 747938762 ####[facility] [address] [place] [address] Rapid COV Int POS Ctl Pass Normal Fis [facility] Comment on above: Performed By: #### 2 572062058 ####[address] [place] [address] SARS-CoV+SARS-CoV-2 (COVID-19) Ag IA.rapid Ql (Resp) Detected Abnormal Not Detected [facility] Comment on above: Result Comment: Resu lts Called To Berna Cook RN/ER By AGNIESZKA And Read Back For Confirmation On 09/05/2022 21:14:20 ESTResults Verified By Repeat AnalysisThe Nordic[employer]? System for Rapid Detection of SARS-CoV-2 is [...] or revoked sooner. Performed By: #### 2 [id number] ####[place] [address] ADMITTED TO INTENSIVE CARE UNIT FOR CONDITION OF INTEREST:FIND:PT: NO Normal [facility] Comment on above: Performed By: #### 2 [id number] ####[place] [address] EMPLOYED IN A HEALTHCARE SETTING:FIND:PT: NO Normal [facility] Comment on above: Performed By: #### 2 397810535 ####[place] [address] FIRST TEST FOR CONDITION OF INTEREST:FIND:PT: YES Normal [facility] Comment on above: Performed By: #### 2 [id number] ####[place] [address] HAS SYMPTOMS RELATED TO CONDITION OF INTEREST:FIND:PT: YES Normal [facility] Comment on above: Performed By: #### 2 597413612 ####[place] HOSPITALIZED FOR CONDITION OF INTEREST:FIND:PT: NO Normal [facility] Comment on above: Performed By: #### 2 987681765 ####[address] [address] STATUS:FIND:PT: NO Normal [facility] Comment on above: Performed By: #### 2 597971923 ####[place] [address] [address] RESIDES IN A CONGREGATE CARE SETTING:FIND:PT: NO Normal [facility] Comment on above: Performed By: #### 2 [id number] ####[address] [place] [address] Troponin 0 Hr.on 09-05-2022 Troponin I.cardiac [Mass/Vol] 4.70 pg/mL Low 10.10-27.10 [facility] Comment on above: Result Comment: The 95% CI (Confidence Interval) PPV (Positive Predictive Value) for myocardial infarction in females is 38 pg/mL, in males 51 pg/mL. The results should be used in conjunction with clinical conditions of myocardial infarction.(Access High Sensitivity Troponin I Instructions For Use, [employer], May 2018) Performed By: #### 2 665938, 60953388, 06364484, 9154719, 31457563, 99771822, 5460955 ####[address] [place] [address] eGFRon 09-05-2022 GFR/1.73 sq M.predicted among blacks MDRD (S/P/Bld) [Vol rate/Area] mL/min/{1.73_m2} Normal >=59 [facility] Comment on above: Order Comment: Order added by Discern Expert. Result Comment: eGFR is race adjusted. AA=. Performed By: #### 2 692088, 64212617, 73298424, 7356004, 51593869, 64815318, 9175335 ####[facility] [address] [place] [address] GFR/1.73 sq M.predicted among non-blacks MDRD (S/P/Bld) [Vol rate/Area] mL/min/{1.73_m2} Normal >=59 [facility] Comment on above: Order Comment: Order added by Discern Expert. Result Comment: [employer] lucy kidney disease could be indicated at eGFR's of less than 60 mL/min/1.73m2. Kidney failure is indicated at less than 15 mL/min/1.73m2. Performed By: #### 2 566035, 56264521, 62867063, 6342668, 45581253, 09838800, 3626303 ####[address] [place] [address] Coding Summary.on 09-04-2022 Coding Summary. Normal [facility] Nursing Assessmenton 022 Nursing Assessment [id number]#1.00CD:1 27 Normal [facility] Physician Orderon 09-04-2022 Physician Order [id number]#1.00CD:1 27 Normal [facility] ABO/Rhon 08-31-2022 ABO/Rh Positive Invalid Interpretation Code [facility] Comment on above: Performed By: #### 1 5954071, 4797187, 28039771, 35600696 ####[address] [address] ABO/Rh History Checkon 08-31 ABO/Rh History Check Verified Hx Blood Type Normal [facility] Comment on above: Performed By: #### 1 4036094, 4747619, 69861643, 58634565 ####[address] [address] ABSCon 08-31-2022 ABSC Gel Interp Negative Normal [facility] Comment on above: Performed By: #### 1 4118432, 0430311, 19374346, 51402267 ####[address] [place] [address] BUNon 08-31-2022 Urea nitrogen [Mass/Vol] 8 mg/dL Normal 03-04 [facility] Comment on above: Performed By: #### 2 906425, 5584461, 16026174, 5613021, 58535883, 0076512, 5253158, 2712411, 4871147, 1667405, 32852168 ####[address] [place] [address] Blood Bank ID#on 08-31-2022 BBID# [id number] Invalid Interpretation Code [facility] Comment on above: Performed By: #### 1 0373006, 1714161, 49838802, 62188637 ####[facility] [address] [place] [address] CBC w/Indiceson 08-31-2022 Erythrocyte distribution width (RBC) [Ratio] 12.9 % Normal 10.9-14.2 [facility] Comment on above: Performed By: #### 2 299853, 8276730, 94367389, 8577496, 90835015, 6114347, 3101414, 3592505, 8691356, 2453883, 31390685 ####[facility] [address] [place] [address] Hematocrit (Bld) [Volume fraction] 35.0 % Normal 34.0-46.0 [facility] Comment on above: Performed By: #### 2 568461, 8375524, 87552939, 5353340, 37935743, 0108369, 0892698, 0734864, 9988776, 6794521, 22028068 ####[facility] [address] [place] [address] Hemoglobin (Bld) [Mass/Vol] 12.0 g/dL Normal 12.0-16.0 [facility] Comment on above: Performed By: #### 2 628332, 1972352, 46705614, 6980402, 73885340, 6516164, 6256651, 9294826, 0931502, 1183833, 23416358 ####[facility] [address] [place] [address] MCH (RBC) [Entitic mass] 30.7 pg Normal 27.0-34.0 [facility] Comment on above: Performed By: #### 2 756566, 2817103, 01841900, 7746364, 57900675, 3871525, 6440282, 1513536, 4686450, 5144983, 32069811 ####[facility] [address] [place] [address] MCHC (RBC) [Mass/Vol] 34.4 g/dL Normal 31.4-36.0 [facility] Comment on above: Performed By: #### 2 020583, 6779336, 11026659, 4554539, 14103836, 9974930, 6626447, 8737910, 2605896, 4729989, 48561680 ####[facility] [address] [place] [address] MCV (RBC) [Entitic vol] 89.5 fL Normal 80.0-100.0 [facility] Comment on above: Performed By: #### 2 328354, 6691545, 56817982, 5902366, 07873843, 2040477, 2517632, 3331344, 3607139, 0337541, 55022710 ####[facility] [address] [place] [address] Platelet mean volume (Bld) [Entitic vol] 9.8 fL Normal 6.4-10.8 [facility] Comment on above: Performed By: #### 2 212729, 6026945, 89569925, 6499484, 37766083, 4335939, 9033605, 5342403, 2324048, 0235639, 34759757 ####[facility] [address] [place] [address] Platelets (Bld) [#/Vol] 234.0 E9/L Normal 150.0-500.0 [facility] Comment on above: Performed By: #### 2 332685, 9626826, 72163971, 3261599, 98620696, 8807767, 8176126, 3024533, 4306105, 2130930, 23019818 ####[facility] [address] [place] [address] RBC (Bld) [#/Vol] 3.9 E12/L Low 4.3-5.9 [facility] Comment on above: Performed By: #### 2 583117, 1097972, 52170306, 5052718, 88459621, 0734410, 1933781, 5219701, 3358961, 1255845, 14121637 ####[facility] [address] [place] [address] WBC corrected for nucl RBC Auto (Bld) [#/Vol] 12.6 E9/L High 4.0-11.0 [facility] Comment on above: Performed By: #### 2 443868, 1057672, 74669300, 0544806, 05010577, 7644746, 6673055, 2747690, 1271771, 3211645, 77445836 ####[address] [place] [address] Creatinineon 08-31-2022 Creatinine [Mass/Vol] 0.7 mg/dL Normal 0.5-1.3 [facility] Comment on above: Performed By: #### 2 206932, 5114309, 70758865, 9418194, 56172360, 4211532, 1094096, 3482143, 4893150, 7422713, 68570802 ####[address] [place] [address] Discharge Instructionson Discharge Instructions [id number]#[id number]:12 7 Normal [facility] Ethanolon 08-31-2022 Ethanol [Mass/Vol] mg/dL Normal <=7 [facility] Comment on above: Performed By: #### 2 339611 ####[address] [place] [address] FSPon 08-31-2022 Fibrin+Fibrinogen fragments (S) [Mass/Vol] <10 Normal <10 [facility] Comment on above: Performed By: #### 2 393310, 4219559, 52803988, 3377101, 91115767, 7444546, 7815060, 7002155, 9131767, 8809038, 08084365 ####[facility] [address] [place] [address] Stainon 08-31-2022 FMHV 0 mL Invalid Interpretation Code [facility] Comment on above: Performed By: #### 2 813015, 6091382, 18980226, 9319713, 18891557, 7833774, 5044408, 0767273, 0838256, 8257915, 34451918 ####[facility] [address] [place] [address] Negative Control Negative Normal [facility] Comment on above: Performed By: #### 2 272937, 5262849, 57805079, 8593958, 81169054, 7648751, 8992867, 3506407, 4558015, 6890876, 38825415 ####[facility] [address] [place] [address] Fibrinogenon 08-31-2022 Fibrinogen Coag (PPP) [Mass/Vol] 406 mg/dL High 200-393 [facility] Comment on above: Performed By: #### 2 967891, 0256920, 83869029, 3773382, 17523550, 3193385, 4852357, 2515857, 5392653, 2642904, 77231552 ####[facility] [address] [place] [address] Hep Func Panelon 08-31-2022 Bilirubin.indirect [Mass or moles/Vol] UTC Abnormal 0.1-0.9 [facility] Comment on above: Result Comment: Resu lt verified by Discern Rule. Performed result UTC (Unable to Calculate) was sent as an Alpha code due the inability to calculate a valid numeric value. Performed By: #### 2 257498, 9806718, 94230428, 5903191, 56192234, 2474377, 5446972, 6188683, 2497671, 5154156, 87321514 ####[facility] [address] [place] [address] Albumin [Mass/Vol] 2.8 g/dL Low 3.3-5.0 [facility] Comment on above: Performed By: #### 2 656423, 7503243, 47746586, 8406679, 14587458, 1374574, 4149408, 3189437, 7963856, 2747436, 58083200 ####[facility] [address] [place] [address] Albumin/Globulin (S) [Mass conc ratio] 0.7 Low 1.1-2.2 [facility] Comment on above: Performed By: #### 2 701397, 5996904, 72719306, 4967550, 81149750, 6936301, 8529154, 6321340, 8788728, 3891660, 76494759 ####[address] [place] [address] ALP [Catalytic activity/Vol] 80 Int._Unit/L Normal 21-98 [facility] Comment on above: Performed By: #### 2 392768, 5506527, 56843579, 7158390, 80210755, 5235657, 1616977, 7788211, 3650764, 2623904, 78158309 ####[address] [place] [address] ALT No additional P-5'-P [Catalytic activity/Vol] 10 Int._Unit/L Normal 6-46 [facility] Comment on above: Performed By: #### 2 558865, 7909323, 62666724, 1424589, 34754472, 8890658, 1097198, 0011855, 9845251, 2881981, 75970932 ####[facility] [address] [place] [address] AST [Catalytic activity/Vol] 16 Int._Unit/L Normal 5-43 [facility] Comment on above: Performed By: #### 2 871366, 6173340, 33329370, 5274089, 37268330, 1443445, 4872578, 2022329, 1577750, 9967555, 40881611 ####[facility] [address] [place] [address] Bilirubin [Mass/Vol] 0.1 mg/dL Normal 0.0-1.1 [facility] Comment on above: Performed By: #### 2 676427, 6843859, 66680603, 3185788, 29491997, 8493687, 7500183, 7012745, 0311328, 2877836, 00308755 ####[facility] [address] [place] [address] Bilirubin.direct [Mass/Vol] mg/dL Normal 0.1-0.4 [facility] Comment on above: Performed By: #### 2 676231, 5783667, 50099450, 9592459, 13191823, 5986645, 2805757, 4880438, 9885998, 2787105, 81420786 ####[facility] [address] [place] [address] Globulin (S) [Mass/Vol] 3.8 g/dL Normal 1.4-4.0 [facility] Comment on above: Performed By: #### 2 890648, 6834020, 51087482, 2847292, 14159724, 7518354, 5635921, 6395694, 9451829, 7103665, 44811890 ####[facility] [address] [place] [address] Protein [Mass/Vol] 6.6 g/dL Normal 6.0-7.8 [facility] Comment on above: Performed By: #### 2 931076, 7415169, 06797550, 6341422, 84998892, 4134017, 1492755, 1745227, 4658357, 9002804, 98240189 ####[facility] [address] [place] [address] Inpatient Clinical Summaryon 08-31-2022 Inpatient Clinical Summary Normal [facility] Inpatient Patient Summaryon 08-31-2022 Inpatient Patient Summary Normal [facility] Lyteson 08-31-2022 Anion gap [Moles/Vol] 13 mmol/L Normal 6-16 [facility] Comment on above: Performed By: #### 2 972198, 0422219, 54622398, 8483910, 56269702, 2252190, 3960924, 8200356, 3552032, 1991166, 32097483 ####[facility] [address] [place] [address] Chloride [Moles/Vol] 104 mmol/L Normal 101-111 [facility] Comment on above: Performed By: #### 2 588696, 0785165, 36279205, 3496252, 47300300, 9278183, 7315331, 2045417, 3458923, 7064414, 56250314 ####[address] [place] [address] CO2 [Moles/Vol] 22 mmol/L Normal 21-31 [facility] Comment on above: Performed By: #### 2 801522, 8638270, 85871832, 0578091, 57862125, 8858541, 1248720, 0393814, 0513914, 6820342, 78978816 ####[address] [place] [address] Potassium [Moles/Vol] 3.5 mmol/L Normal 3.5-5.3 [facility] Comment on above: Performed By: #### 2 633044, 6913078, 25762055, 5433881, 18120832, 1153343, 2831738, 7794321, 9768760, 3262021, 39264204 ####[facility] [address] [place] [address] Sodium [Moles/Vol] 135 mmol/L Normal 135-145 [facility] Comment on above: Performed By: #### 2 168160, 7461279, 21626219, 2082529, 09560132, 1741550, 0849631, 1212854, 8109137, 9825284, 60994311 ####[address] [place] [address] Nursing Assessmenton 022 Nursing Assessment [id number]#[id number]:12 7 Normal [facility] PT & PTTon 08-31-2022 aPTT Coag (PPP) [Time] 26.3 second(s) Normal 25.1-36.5 [facility] Comment on above: Result Comment: Para [...] the same coagulation reagent and instrumentation as [facility]. Currently there are no coagulation studies available worldwide for children to 14 days, and no normal ranges. Heparin therapeutic range (represented by Anti-Factor Xa activity of 0.2 - 0.4 U/mL) corresponds to PTT of 56.6 - 109.0 sec. Performed By: #### 2 277351, 5135217, 45237991, 1804287, 63981323, 5534114, 7806127, 2173507, 8701121, 4183002, 10689657 ####[facility] [address] [place] [address] INR Coag (PPP) [Relative time] 0.9 {INR} Invalid Interpretation Code [facility] Comment on above: Result Comment: INR results are specifically intended to assess patients stabilized on long-term Anticoagulation therapy suggested INR?s ?Less Intensive Anticoagulation? 2.0 ? 3.0Conventional Range 3.0 ? 4.5 Performed By: #### 2 985065, 9723258, 37640859, 4544457, 57624601, 7863690, 7682189, 5154609, 9240876, 3576701, 45537090 ####[facility] [address] [place] [address] PT Coag (PPP) [Time] 10.2 second(s) Normal 9.4-12.5 [facility] Comment on above: Result Comment: 15 [...] the same coagulation reagent and instrumentation as [facility]. Currently there are no coagulation studies available worldwide for children to 14 days, and no normal ranges. Performed By: #### 2 721080, 4622129, 49178966, 2791587, 21006075, 5181538, 2685023, 0344056, 4403776, 1255463, 78726094 ####[facility] [address] [place] [address] U Drug Screenon 08-31-2022 Amphetamines Screen method >1000 ng/mL Ql (U) Negative Normal Negative [facility] Comment on above: Result Comment: Nega tive Cutoff: <1000 ng/mL Performed By: #### 2 059935, 86845870 ####[facility] [address] [place] [address] Barbiturates Screen Ql (U) Negative Normal Negative [facility] Comment on above: Result Comment: Nega tive Cutoff: <200 ng/mL Performed By: #### 2 705390, 40688995 ####[facility] [address] [place] [address] Benzodiazepines Ql (U) Negative Normal Negative [facility] Comment on above: Result Comment: Nega tive Cutoff: <200 ng/mL Performed By: #### 2 607407, 86380619 ####[facility] [address] [place] [address] Cocaine Ql (U) Negative Normal Negative [facility] Comment on above: Result Comment: Nega tive Cutoff: <300 ng/mL Performed By: #### 2 230672, 79559950 ####[facility] [address] [place] [address] Opiates Screen Ql (U) Negative Normal Negative Fis [facility] Comment on above: Result Comment: Nega tive Cutoff: <300 ng/mL Performed By: #### 2 700559, 84531488 ####[facility] [address] [place] [address] Phencyclidine Screen method >25 ng/mL Ql (U) Negative Normal Negative [facility] Comment on above: Result Comment: Nega tive Cutoff: <25 ng/mLThese drug screen results are to be used for medical (i.e., treatment) purposes only. Unconfirmed drug screening results must not be used for non-medical purposes (e.g., employment testing, legal testing). Performed By: #### 2 516377, 09402651 ####[facility] [address] [place] [address] Tetrahydrocannabinol Screen method >50 ng/mL Ql (U) Negative Normal Negative [facility] Comment on above: Result Comment: Nega tive Cutoff: <50 ng/mL Performed By: #### 2 683831, 54442271 ####[facility] [address] [place] [address] UA With Cult Reflexon 2021 Bacteria LM Ql (Urine sed) TRACE Normal Trace [facility] Comment on above: Performed By: #### 2 386251, 01660555 ####[facility] [address] [place] [address] Bilirubin Ql (U) Negative Normal Negative [facility] Comment on above: Performed By: #### 2 101984, 42181459 ####[facility] [address] [place] [address] Clarity (U) CLEAR Normal Clear [facility] Comment on above: Performed By: #### 2 057930, 52452353 ####[facility] [address] [place] [address] Color (U) YELLOW Normal Yellow [facility] Comment on above: Performed By: #### 2 058548, 80001888 ####[facility] [address] [place] [address] Epithelial cells.squamous LM.HPF (Urine sed) [#/Area] 0-2 Normal 0-2 [facility] Comment on above: Performed By: #### 2 801138, 70762790 ####[facility] [address] [place] [address] Glucose Test strip (U) [Mass/Vol] Negative Normal Negative [facility] Comment on above: Performed By: #### 2 818589, 48647735 ####[facility] [address] [place] [address] Hemoglobin Ql (U) Negative Normal Negative [facility] Comment on above: Performed By: #### 2 844023, 58075508 ####[facility] [address] [place] [address] Ketones (U) [Mass/Vol] Negative Normal Negative Fi [facility] Comment on above: Performed By: #### 2 653790, 27521779 ####[facility] [address] [place] [address] [place].plasma/[place] .RBC (Bld) [Mass ratio] 0-3 Normal 0-3 [facility] Comment on above: Performed By: #### 2 392026, 17357719 ####[facility] [address] [place] [address] Nitrite Ql (U) Negative Normal Negative [facility] Comment on above: Performed By: #### 2 035520, 10383019 ####[facility] [address] [place] [address] pH (U) 6.0 [pH] Invalid Interpretation Code 5.0-9.0 [facility] Comment on above: Performed By: #### 2 527229, 07207899 ####[facility] [address] [place] [address] Protein (U) [Mass/Vol] Negative Normal Negative Fi [facility] Comment on above: Performed By: #### 2 937377, 35041972 ####[facility] [address] [place] [address] Specific gravity (U) [Rel density] 1.010 Invalid Interpretation Code 1.005-1.030 [facility] Comment on above: Performed By: #### 2 697996, 31974091 ####[address] Type of Urine collection method Clean Catch Normal [facility] Comment on above: Performed By: #### 2 549034, 39493795 ####[address] [address] Urobilinogen Qn (U) 0.2 {Rola'U}/dL Normal 0.0-1.0 [facility] Comment on above: Performed By: #### 2 607874, 17548939 ####[facility] [address] [place], [place] [address] WBC Auto Ql (U) Negative Normal Negative [facility] Comment on above: Performed By: #### 2 144863, 51764522 ####[facility] [address] [place] [address] WBC LM.HPF (Urine sed) [#/Area] 0-5 Normal 0-5 [facility] Comment on above: Performed By: #### 2 939792, 02308517 ####[address] [address] Uric Acidon 08-31-2022 Urate [Mass/Vol] 5.0 mg/dL Normal 2.2-7.4 [facility] Comment on above: Performed By: #### 2 316486, 3350446, 39294562, 9273984, 84143536, 9830134, 6056725, 4910246, 5691186, 6694939, 23245587 ####[facility] [address] [place] [address] eGFRon 08-31-2022 GFR/1.73 sq M.predicted among blacks MDRD (S/P/Bld) [Vol rate/Area] mL/min/{1.73_m2} Normal >=59 [facility] Comment on above: Order Comment: Order added by Discern Expert. Result Comment: eGFR is race adjusted. AA=. Performed By: #### 2 101693, 1462865, 93136673, 1878508, 43782919, 3914824, 6307892, 5430086, 3471533, 3011618, 68921222 ####[facility] [address] [place] [address] GFR/1.73 sq M.predicted among non-blacks MDRD (S/P/Bld) [Vol rate/Area] mL/min/{1.73_m2} Normal >=59 [facility] Comment on above: Order Comment: Order added by Discern Expert. Result Comment: [employer] lucy kidney disease could be indicated at eGFR's of less than 60 mL/min/1.73m2. Kidney failure is indicated at less than 15 mL/min/1.73m2. Performed By: #### 2 559530, 8376350, 31459746, 7136764, 16614194, 8095788, 0404179, 9179610, 0040130, 8710293, 56611947 ####[facility] [address] [place] [address] BLOOD BANKOrdered By: Naldo Li on 08-30-2022 ABO/Rh Interp Positive Invalid Interpretation Code [facility] BB Subsection ABSC Gel Interp Negative (08/30/22 11:51 PM) Normal [facility] BB Subsection FMHV 0 mL Invalid Interpretation Code [facility] Man Sero CHEMISTRYOrdered By: SYSTEM SYSTEM on 08-30-2022 Albumin [Mass/Vol] 2.8 g/dL Low 3.3 - 5.0 gm/dL [facility] Remisol Albumin/Globulin [Mass ratio] 0.7 {ratio} Low [...] rate/Area] mL/min/1.73 m2 Normal >=59mL/min/ 1.73 m2 [facility] Chem S GFR/1.73 sq M.predicted among non-blacks [...] Consent for Treatmenton 08-15 Consent for Treatment [id number]#1.00CD:12 7 Normal [facility] HEMATOLOGYOrdered By: Naldo Li on [...] PM) Normal Negative [facility] UA Auto SS [place].plasma/[place] .RBC (Bld) [Mass ratio] 0-3 /HPF Normal [...] [facility] UA Auto SS Urobilinogen Qn (U) 0.2183621 {Rola'U}/dL Normal 0.0 - 1.0 EU/dL [facility] UA Auto SS WBC Auto Ql (U) Negative (08/30/22 9:45 PM) Normal Negative [facility] UA Auto SS WBC LM.HPF (Urine sed) [#/Area] 0-5 /HPF Normal 0-5/HPF [facility] UA Auto SS Coding Summary.on 08-28-2022 Coding Summary. Normal [facility] BLOOD BANKOrdered By: Janet Reyes on 08-22-2022 ABO/Rh Interp Positive Invalid Interpretation Code [facility] BB Subsection ABSC Gel Interp Negative (08/22/22 4:03 PM) Normal [facility] BB Subsection FMHV 0 mL Invalid Interpretation Code [facility] Man Sero CHEMISTRYOrdered By: SYSTEM SYSTEM on [...] rate/Area] mL/min/1.73 m2 Normal >=59mL/min/ 1.73 m2 [facility] Chem S GFR/1.73 sq M.predicted among non-blacks MDRD (S/P/Bld) [Vol rate/Area] mL/min/1.73 m2 Normal >=59mL/min/ 1.73 m2 [facility] Chem S Globulin (S) [Mass/Vol] 3.7 g/dL [...] PM) Normal Negative [facility] UA Auto SS [place].plasma/[place] .RBC (Bld) [Mass ratio] 0-3 /HPF Normal [...] [facility] UA Auto SS Urobilinogen Qn (U) 0.8910448 {Rola'U}/dL Normal 0.0 - 1.0 EU/dL [facility] [...] AM) Normal Negative [facility] UA Auto SS [place].plasma/[place] .RBC (Bld) [Mass ratio] 0-3 /HPF Normal [...] Desc Clean Catch (08/18/22 4:08 AM) Normal [facility] UA Auto SS Urobilinogen Qn (U) 0.5327138 {Rola'U}/dL Normal 0.0 - 1.0 EU/dL [facility] UA Auto SS WBC Auto Ql (U) 2+ *ABN* (08/18/22 4:08 AM) Invalid Interpretation Code Negative [facility] UA Auto SS WBC LM.HPF (Urine sed) [#/Area] 6-15 /HPF Invalid Interpretation Code 0-5/HPF [facility] UA Auto SS BLOOD BANKOrdered By: Tom Avelar on 08-13-2022 ABO/Rh Interp Positive Invalid Interpretation Code [facility] BB Subsection ABSC Gel Interp Negative (08/13/22 6:26 PM) Normal [facility] BB Subsection FMHV 0 mL Invalid Interpretation Code [facility] Man Sero CHEMISTRYOrdered By: SYSTEM SYSTEM on [...] Interpretation Code Negative [facility] UA Auto SS [place].plasma/[place] .RBC (Bld) [Mass ratio] 0-3 /HPF Normal [...] [facility] UA Auto SS Urobilinogen Qn (U) 0.5228844 {Rola'U}/dL Normal 0.0 - 1.0 EU/dL [facility] [...] AM) Normal Negative [facility] UA Auto SS [place].plasma/[place] .RBC (Bld) [Mass ratio] 0-3 /HPF Normal [...] [facility] UA Auto SS Urobilinogen Qn (U) 0.6922483 {Rola'U}/dL Normal 0.0 - 1.0 EU/dL [facility] [...] [Mass/Vol] Negative (07/17/22 9:25 AM) Normal Negative [facility] UA Auto SS Hemoglobin Ql (U) Negative (07/17/22 9:25 AM) Normal Negative [facility] UA Auto SS Ketones (U) [Mass/Vol] Negative (07/17/22 9:25 AM) Normal Negative [facility] UA Auto SS [place].plasma/[place] .RBC (Bld) [Mass ratio] 0-3 /HPF Normal 0-3/HPF [facility] UA Auto SS Nitrite Ql (U) Negative (07/17/22 9:25 AM) Normal Negative [facility] UA Auto SS pH (U) 7.0 *NA* (07/17/22 9:25 AM) Invalid Interpretation Code 5.0 - 9.0 [facility] UA Auto SS Protein (U) [Mass/Vol] Negative (07/17/22 9:25 AM) Normal Negative [facility] UA Auto SS Specific gravity (U) [Rel density] <=1.005 *NA* (07/17/22 9:25 AM) Invalid Interpretation Code 1.005 - 1.030 [facility] UA Auto SS UA Spec Desc Clean Catch (07/17/22 9:25 AM) Normal [facility] UA Auto SS Urobilinogen Qn (U) 0.7624383 {Rola'U}/dL Normal 0.0 - 1.0 EU/dL [facility] UA Auto SS WBC Auto Ql (U) Negative (07/17/22 9:25 AM) Normal Negative [facility] UA Auto SS WBC LM.HPF (Urine sed) [#/Area] 0-5 /HPF Normal 0-5/HPF [facility] UA Auto SS CHEMISTRYOrdered By: SYSTEM SYSTEM on 06-28-2022 Glucose 1 Hr post 50 g glucose PO [Mass/Vol] 93 mg/dL Normal 55 - 140 mg/dL [facility] Remisol HEMATOLOGYOrdered By: Keila Ring on 06-28-2022 Hematocrit (Bld) [Volume fraction] 35.4 % Normal 34.0 - 46.0 % [facility] HemeAutoSS Hemoglobin (Bld) [Mass/Vol] 12.1 g/dL Normal 12.0 - 16.0 gm/dL [facility] HemeAutoSS BLOOD BANKOrdered By: Jeanette Castle on 06-19-2022 ABO/Rh Interp Positive Invalid Interpretation Code [facility] BB Subsection ABSC Gel Interp Negative (06/19/22 12:15 AM) Normal [facility] BB Subsection FMHV 0 mL Invalid Interpretation Code [facility] Man Sero CHEMISTRYOrdered By: SYSTEM SYSTEM on [...] PM) Normal Negative [facility] UA Auto SS [place].plasma/[place] .RBC (Bld) [Mass ratio] 0-3 /HPF Normal [...] [facility] UA Auto SS Urobilinogen Qn (U) 0.6608198 {Rola'U}/dL Normal 0.0 - 1.0 EU/dL [facility] [...] PM) Normal Negative [facility] UA Auto SS [place].plasma/[place] .RBC (Bld) [Mass ratio] 0-3 /HPF Normal 0-3/HPF [facility] UA Auto SS Mucus Ql (Urine sed) Trace (05/01/22 5:20 PM) Normal [facility] UA Auto SS Nitrite Ql (U) Negative (05/01/22 5:20 PM) Normal Negative [facility] UA Auto SS pH (U) 5.5 *NA* (05/01/22 5:20 PM) Invalid Interpretation Code 5.0 - 9.0 [facility] UA Auto SS Protein (U) [Mass/Vol] Trace *ABN* (05/01/22 5:20 PM) Invalid Interpretation Code Negative [facility] UA Auto SS Specific gravity (U) [Rel density] >=1.030 *NA* (05/01/22 5:20 PM) Invalid Interpretation Code 1.005 - 1.030 [facility] UA Auto SS UA Spec Desc Random Urine (05/01/22 5:20 PM) Normal [facility] UA Auto SS Urobilinogen Qn (U) 1.1310894 {Rola'U}/dL Normal 0.0 - 1.0 EU/dL [facility] UA Auto SS WBC Auto Ql (U) Negative (05/01/22 5:20 PM) Normal Negative [facility] UA Auto SS WBC LM.HPF (Urine sed) [#/Area] 0-5 /HPF Normal 0-5/HPF [facility] UA Auto SS BLOOD BANKOrdered By: Shayy Medina on 04-02-2022 ABO/Rh Interp Positive Invalid Interpretation Code [facility] BB Subsection ABSC Gel Interp Negative (04/02/22 7:17 AM) Normal [facility] [place] BB Subsection FMHV 0 mL Invalid Interpretation Code [facility] Man Sero CHEMISTRYOrdered By: SYSTEM SYSTEM on [...] AM) Normal Negative [facility] UA Auto SS [place].plasma/[place] .RBC (Bld) [Mass ratio] 0-3 /HPF Normal [...] Desc Random Urine (04/02/22 6:05 AM) Normal FT UA Auto SS Urobilinogen Qn (U) [id number] {Rola'U}/dL Normal 0.0 - 1.0 EU/dL FT [...] PM) Normal Negative [facility] UA Auto SS [place].plasma/[place] .RBC (Bld) [Mass ratio] 0-3 /HPF Normal [...] [facility] UA Auto SS Urobilinogen Qn (U) [id number] {Rola'U}/dL Normal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 Transcribe Date/Time: Jul 23 2017 1:34P Dictated by : BRANDT HOLLINS MD This examination was interpreted and the report reviewed and electronically signed by: MARII MCCLURE MD on Jul 23 2017 1:45PM ESTXR HIP GENERAL 3V PELV/AP/LAT LT Final Result IMPRESSION: No acute/significant pathology detected. [employer]: PSC[employer] Transcribe Date/Time: Jul 23 2017 1:42P Dictated by : LUIS CARLOS PALM MD This examination was interpreted and the report reviewed and electronically signed by: LUIS CARLOS PALM MD on Jul 23 2017 1:43PM ESTXR SHOULDER GENERAL 3V OR MORE AP/TRUE AP/OTHER LT Final Result IMPRESSION: No acute/significant pathology detected. [employer]: PSC Transcribe Date/Time: Jul 23 2017 1:41P Dictated [...] She will also [facility] for furtherevaluation and assessment. 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 My fair findings include:History Involved in [...] changes: NoneSignature: ANDI Epsteinate: 07/23/2017Time: 4:34 PMCarl Amber Holman MD07/23/17 1636 [facility] MRI CERVICAL SPINE WO IVCONo n 07-23-2017 [...] MCCLURE MD on Jul 23 2017 3:41PM [id number] [facility] PROGRESSon 07-23-2017 PROGRESS HNO ID: [id number] thor: Anna Lawler RtService: (none)Author Type: (none)Type: Progress NotesFiled: 07/23/2017 3:10 PMNote Text: Radiology Service Progress NotePATIENT NAME: Susan Byrd LennieMRN: [id number] OF SERVICE: July 23, 2017TIME: 3:09 PMPATIENT IDENTITY VERIFICATION COMPLETED USING TWO (2) METHODS: Patientconfirmed name verbally and Date of .PATIENT GENDER DATA: Female. status: : NoBreastfeeding status: NO.PATIENT RELEVANT IMPLANT DATA REVIEWED: YesRADIOLOGY DEPARTMENT: MR; Exam(s) Completed: Spine: Cervical spine inc-collarPERIPHERAL IV DATA: Not applicableSIGNED BY: Anna Lawler A.A.S.,RT (R) (CT)(MR)July 23, 2017 3:09 PM [facility] PROGRESS HNO ID: [id number] thor: Shayy Ramires RtService: (none)Author Type: (none)Type: Progress NotesFiled: 07/23/2017 1:36 PMNote Text: Radiology Service Progress NotePATIENT NAME: Susan HogueMRN: [id number] OF SERVICE: July 23, 2017TIME: 1:36 PMPATIENT IDENTITY VERIFICATION COMPLETED USING TWO (2) METHODS: Patientconfirmed name verbally and Date of .PATIENT GENDER DATA: Female. status: : NoBreastfeeding status: NO.PATIENT RELEVANT IMPLANT DATA REVIEWED: YesRADIOLOGY DEPARTMENT: CT; Exam(s) Completed: SpinePERIPHERAL IV DATA: Not applicableSIGNED BY: Shayy Ramires RtOctober 2016 1:36 PM [facility] PROGRESS HNO ID: [id number] thor: Romelia () Gi Green: (none)Author Type: TechnicianType: Progress NotesFiled: 07/23/2017 1:32 PMNote Text: Radiology Service Progress NotePATIENT NAME: Susan HogueMRN: [id number] OF SERVICE: July 23, 2017TIME: 1:32 PMPATIENT [...] Romelia Green RTOctober 2016 1:32 PM [facility] XR HIP 3V PELV+ AP/LAT LTon 07-23-2017 [...] soft tissues are unremarkable.IMPRESSION:N o acute/significant pathology detected.[employer] : PSCB Transcribe Date/Time: Jul 23 2017 1:42PDictated by : Armando CHARLES examination was interpreted and the report reviewed and electronically signed by: LUIS CARLOS PALM MD on Jul 23 2017 1:43PM [id number] [facility] XR KNEE 2V AP/LAT LTon 07-23 XR [...] soft tissues are unremarkable.IMPRESSION:N o acute/significant pathology detected.[employer] : [employer] Transcribe Date/Time: Jul 23 2017 1:44PDictated by : Armando CHARLES examination was interpreted and the report reviewed and electronically signed by: LUIS CARLOS PALM MD on Jul 23 2017 1:45PM [id number] [facility] XR KNEE 2V AP/LAT RTon 07-23 XR [...] soft tissues are unremarkable.IMPRESSION:N o acute/significant pathology detected.[employer] : [employer] Transcribe Date/Time: Jul 23 2017 1:44PDictated by : Armando CHARLES examination was interpreted and the report reviewed and electronically signed by: LUIS CARLOS PALM MD on Jul 23 2017 1:45PM [id number] [facility] XR SHLDR >/=3V AP/IMER AP/OTH R LTon [...] soft tissues are unremarkable.IMPRESSION:N o acute/significant pathology detected.[employer] : [employer] Transcribe Date/Time: Jul 23 2017 1:41PDictated by : Armando CHARLES examination was interpreted and the report reviewed and electronically signed by: LUIS CARLOS PALM MD on Jul 23 2017 1:42PM [id number] [facility] Vital Signs Date Time Vital Sign Value Performing Clinician Facility 11-04-2023 08:13-0500 Blood Pressure Location Rashaun PURVIS [facility] 11-04-2023 08:13-0500 Body temperature 98.06 [degF] Rashaun PURVIS [facility] 11-04-2023 08:13-0500 Diastolic blood pressure 68 mm[Hg] Rashaun PURVIS [facility] 11-04-2023 08:13-0500 Heart rate 77 /min Rashaun PURVIS [facility] 11-04-2023 08:13-0500 Mean blood pressure 81 mm[Hg] Rashaun YANIV [facility] 11-04-2023 08:13-0500 SaO2% (BldA) [Mass fraction] 99 % Rashaun YANIV [facility] 11-04-2023 08:13-0500 Systolic blood pressure 106 mm[Hg] Rashaun YANIV [facility] 11-04-2023 08:00-0500 Hourly Rounding Rashaun YANIV [facility] 11-04-2023 08:00-0500 Promise to Return Rashaun YANIV [facility] 08-18-2023 07:30-0400 Body temperature 98.24 [degF] Julia Nataprawira [facility] 08-18-2023 07:30-0400 Diastolic blood pressure 67 mm[Hg] Julia Nataprawira [facility] 08-18-2023 07:30-0400 Heart rate 95 /min Julia Nataprawira [facility] 08-18-2023 07:30-0400 Hourly Rounding Julia Nataprawira [facility] 08-18-2023 07:30-0400 Mean blood pressure 89 mm[Hg] Julia Nataprawira [facility] 08-18-2023 07:30-0400 Respiratory rate 16 /min Julia Nataprawira [facility] 08-18-2023 07:30-0400 Systolic blood pressure 133 mm[Hg] Julia Nataprawira [facility] 07-25-2023 08:17-0400 Body temperature 97.7 [degF] Kristian Guillermo [facility] 07-25-2023 08:17-0400 Diastolic blood pressure 65 mm[Hg] Kristian Guillermo [facility] 07-25-2023 08:17-0400 Heart rate 73 /min Kristian Guillermo [facility] 07-25-2023 08:17-0400 Respiratory rate 16 /min Kristian Guillermo [facility] 07-25-2023 08:17-0400 SaO2% (BldA) [Mass fraction] 100 % Kristian Guillermo [facility] 07-25-2023 08:17-0400 Systolic blood pressure 119 mm[Hg] Kristian Guillermo [facility] 06-28-2023 10:34-0400 Blood Pressure Location Roverto Spasic [facility] 06-28-2023 10:34-0400 Body temperature 98.24 [degF] Roverto Spasic [facility] 06-28-2023 10:34-0400 Diastolic blood pressure 78 mm[Hg] Roverto Spasic [facility] 06-28-2023 10:34-0400 Heart rate 81 /min Roverto Spasic [facility] 06-28-2023 10:34-0400 SaO2% (BldA) [Mass fraction] 99 % Roverto Spasic [facility] 06-28-2023 10:34-0400 Systolic blood pressure 119 mm[Hg] Roverto Spasic [facility] 06-14-2023 08:37-0400 Body temperature 98.6 [degF] Kristian Guillermo [facility] 06-14-2023 08:37-0400 Diastolic blood pressure 70 mm[Hg] Kristian Eagle [facility] 06-14-2023 08:37-0400 Heart rate 69 /min Kristian Guillermo [facility] 06-14-2023 08:37-0400 Respiratory rate 18 /min Kristian Guillermo [facility] 06-14-2023 08:37-0400 SaO2% (BldA) [Mass fraction] 100 % Kristian Guillermo [facility] 06-14-2023 08:37-0400 Systolic blood pressure 110 mm[Hg] Kristian Guillermo [facility] 05-21-2023 23:00-0400 Diastolic blood pressure 64 mm[Hg] Kaylinn Dokken [facility] 05-21-2023 23:00-0400 Heart rate 64 /min Kaylinn Dokken [facility] 05-21-2023 23:00-0400 Mean blood pressure 77 mm[Hg] Kaylinn Dokken [facility] 05-21-2023 23:00-0400 Respiratory rate 18 /min Kaylinn Dokken [facility] 05-21-2023 23:00-0400 Systolic blood pressure 102 mm[Hg] Kaylinn Dokken [facility] 05-21-2023 21:50-0400 Hourly Rounding Kaylinn Dokken [facility] 05-21-2023 21:30-0400 Diastolic blood pressure 53 mm[Hg] Kaylinn Dokken [facility] 05-21-2023 21:30-0400 Heart rate 72 /min Kaylinn Dokken [facility] 05-21-2023 21:30-0400 Respiratory rate 19 /min Kaylinn Dokken [facility] 05-21-2023 21:30-0400 SaO2% (BldA) [Mass fraction] 100 % Kaylinn Dokken [facility] 05-21-2023 21:30-0400 Systolic blood pressure 91 mm[Hg] Kaylinn Dokken [facility] 05-21-2023 20:38-0400 Body temperature 98.42 [degF] Kaylinn Dokken [facility] 05-21-2023 20:38-0400 Diastolic blood pressure 73 mm[Hg] Kaylinn Dokken [facility] 05-21-2023 20:38-0400 Heart rate 60 /min Kaylinn Dokken [facility] 05-21-2023 20:38-0400 Respiratory rate 20 /min Kaylinn Dokken [facility] 05-21-2023 20:38-0400 Systolic blood pressure 109 mm[Hg] Kaylinn Dokken [facility] 04-26-2023 11:10-0400 Diastolic blood pressure 74 mm[Hg] [facility] 04-26-2023 11:10-0400 Heart rate 65 /min [facility] 04-26-2023 11:10-0400 Respiratory rate 14 /min [facility] 04-26-2023 11:10-0400 SaO2% (BldA) [Mass fraction] 100 % [facility] 04-26-2023 11:10-0400 Systolic blood pressure 108 mm[Hg] [facility] 04-26-2023 09:00-0400 Body temperature 98.24 [degF] [facility] 04-26-2023 09:00-0400 Diastolic blood pressure 72 mm[Hg] [facility] 04-26-2023 09:00-0400 Heart rate 80 /min [facility] 04-26-2023 09:00-0400 Mean blood pressure 85 mm[Hg] [facility] 04-26-2023 09:00-0400 Respiratory rate 18 /min [facility] 04-26-2023 09:00-0400 Systolic blood pressure 110 mm[Hg] [facility] 01-31-2023 11:43-0400 Diastolic blood pressure 67 mm[Hg] Kristian Guillermo [facility] 01-31-2023 11:43-0400 Heart rate 68 /min Kristian Guillermo [facility] 01-31-2023 11:43-0400 Mean blood pressure 79 mm[Hg] Kristian Guillermo [facility] 01-31-2023 11:43-0400 Respiratory rate 16 /min Kristian Guillermo [facility] 01-31-2023 11:43-0400 SaO2% (BldA) [Mass fraction] 100 % Kristian Guillermo [facility] 01-31-2023 11:43-0400 Systolic blood pressure 103 mm[Hg] Kristian Guillermo [facility] 01-31-2023 11:03-0400 Diastolic blood pressure 73 mm[Hg] Kristian Eagle [facility] 01-31-2023 11:03-0400 Heart rate 71 /min Kristian Eagle [facility] 01-31-2023 11:03-0400 Mean blood pressure 81 mm[Hg] Kristian Eagle [facility] 01-31-2023 11:03-0400 Respiratory rate 12 /min Kristian Eagle [facility] 01-31-2023 11:03-0400 SaO2% (BldA) [Mass fraction] 100 % Kristian Eagle [facility] 01-31-2023 11:03-0400 Systolic blood pressure 98 mm[Hg] Kristian Eagle [facility] 01-31-2023 10:29-0400 Diastolic blood pressure 77 mm[Hg] Kristian Eagle [facility] 01-31-2023 10:29-0400 Heart rate 87 /min Kristian Eagle [facility] 01-31-2023 10:29-0400 Respiratory rate 21 /min Kristian Eagle [facility] 01-31-2023 10:29-0400 SaO2% (BldA) [Mass fraction] 99 % Kristian Eagle [facility] 01-31-2023 10:29-0400 Systolic blood pressure 101 mm[Hg] Kristian Eagle [facility] 01-31-2023 09:51-0400 gluc 100 mg/dL Kristian Guillermo [facility] 01-31-2023 09:51-0400 gluc Kristian Guillermo [facility] 01-31-2023 09:43-0400 Body temperature 98.42 [degF] Kristian Guillermo [facility] 01-31-2023 09:43-0400 Heart rate 75 /min Kristian Guillermo [facility] 01-31-2023 09:43-0400 Respiratory rate 18 /min Kristian Guillermo [facility] 09-22-2022 15:14-0500 Body temperature 98.24 [degF] Luis Carlos Jung [facility] 09-22-2022 15:14-0500 Diastolic blood pressure 84 mm[Hg] Luis Carlos Jung [facility] 09-22-2022 15:14-0500 Heart rate 76 /min Luis Carlos Jung [facility] 09-22-2022 15:14-0500 Mean blood pressure 97 mm[Hg] Luis Carlos Jung [facility] 09-22-2022 15:14-0500 Respiratory rate 20 /min Luis Carlos Jung [facility] 09-22-2022 15:14-0500 Systolic blood pressure 124 mm[Hg] Luis Carlos Jung [facility] 09-22-2022 15:00-0500 Blood Pressure Location Luis Carlos Jung [facility] 09-20-2022 17:15-0500 Hourly Rounding Luis Carlos Jung [facility] Comment on above: Result Comment: discharge instructions g iven with verbal understanding. monitors off; pt up to dress. 09-20-2022 16:15-0500 Diastolic blood pressure 77 mm[Hg] Luis Carlos Jung [facility] 09-20-2022 16:15-0500 Heart rate 78 /min Luis Carlos Fabiana [facility] 09-20-2022 16:15-0500 Mean blood pressure 92 mm[Hg] Luis Carlos Fabiana [facility] 09-20-2022 16:15-0500 Respiratory rate 18 /min Luis Carlos Fabiana [facility] 09-20-2022 16:15-0500 Systolic blood pressure 121 mm[Hg] Luis Carlos Fabiana [facility] 09-20-2022 13:16-0500 Diastolic blood pressure 80 mm[Hg] Luis Carlos Fabiana [facility] 09-20-2022 13:16-0500 Heart rate 80 /min Luis Carlos Fabiana [facility] 09-20-2022 13:16-0500 Mean blood pressure 93 mm[Hg] Luis Carlos Fabiana [facility] 09-20-2022 13:16-0500 Respiratory rate 18 /min Luis Carlos Fabiana [facility] 09-20-2022 13:16-0500 Systolic blood pressure 120 mm[Hg] Luis Carlos Fabiana [facility] 09-20-2022 09:48-0500 Diastolic blood pressure 79 mm[Hg] Luis Carlos Fabiana [facility] 09-20-2022 09:48-0500 Heart rate 94 /min Luis Carlos Fabiana [facility] 09-20-2022 09:48-0500 Hourly Rounding Luis Carlos Jung [facility] 09-20-2022 09:48-0500 Mean blood pressure 97 mm[Hg] Luis Carlos Fabiana [facility] 09-20-2022 09:48-0500 Respiratory rate 18 /min Luis Carlos Jung [facility] 09-20-2022 09:48-0500 Systolic blood pressure 132 mm[Hg] Luis Carlos Jung [facility] 09-19-2022 03:38-0500 Hourly Rounding Jj KARASIK [facility] Comment on above: Result Comment: pt walks off unit with a steady gait 09-19-2022 02:45-0500 Blood Pressure Location Jj KARASIK [facility] 09-19-2022 02:45-0500 Body temperature 98.42 [degF] Jj KARASIK [facility] 09-19-2022 02:45-0500 Diastolic blood pressure 77 mm[Hg] Jj KARASIK [facility] 09-19-2022 02:45-0500 Heart rate 62 /min Jj KARASIK [facility] 09-19-2022 02:45-0500 Hourly Rounding Jj KARASIK [facility] Comment on above: Result Comment: questions answered, guillaume monk 09-19-2022 02:45-0500 Mean blood pressure 91 mm[Hg] Jj KARASIK [facility] 09-19-2022 02:45-0500 Respiratory rate 18 /min Jj KARASIK [facility] 09-19-2022 02:45-0500 Systolic blood pressure 120 mm[Hg] Jj KARASIK [facility] 09-19-2022 01:45-0500 Blood Pressure Location Jj KARASIK [facility] 09-19-2022 01:45-0500 Body temperature 98.06 [degF] Jj KARASIK [facility] 09-19-2022 01:45-0500 Diastolic blood pressure 84 mm[Hg] Jj MIKE [facility] 09-19-2022 01:45-0500 Heart rate 70 /min Jj MIKE [facility] 09-19-2022 01:45-0500 Hourly Rounding Jj MIKE [facility] Comment on above: Result Comment: pt brought to unit via w heelchair. Changes into gown independently and provides urine sample. Pt demonstrates ability to use call light. Needs met, call light in reach 09-19-2022 01:45-0500 Mean blood pressure 96 mm[Hg] Jj MIKE [facility] 09-19-2022 01:45-0500 Respiratory rate 18 /min Jj MIKE [facility] 09-19-2022 01:45-0500 Systolic blood pressure 120 mm[Hg] Jj MIKE [facility] 09-14-2022 12:15-0500 Hourly Rounding Luis Carlos Fabiana [facility] Comment on above: Result Comment: reviewed plan for disch and use of meds to treat head ache 09-14-2022 11:45-0500 Hourly Rounding Luis Carlos Jung [facility] Comment on above: Result Comment: STATES SHE FEELS MUCH BE TTER AND WANTS TO GO HOME 09-14-2022 11:15-0500 Diastolic blood pressure 73 mm[Hg] Luis Carlos Jung [facility] 09-14-2022 11:15-0500 Heart rate 74 /min Luis Carlos Jung [facility] 09-14-2022 11:15-0500 Hourly Rounding Luis Carlos Jung [facility] 09-14-2022 11:15-0500 Mean blood pressure 88 mm[Hg] Luis Carlos Jung [facility] 09-14-2022 11:15-0500 Systolic blood pressure 119 mm[Hg] Luis Carlos Jung [facility] 09-14-2022 11:00-0500 Diastolic blood pressure 66 mm[Hg] Luis Carlos Jung [facility] 09-14-2022 11:00-0500 Heart rate 67 /min Luis Carlos Jung [facility] 09-14-2022 11:00-0500 Mean blood pressure 84 mm[Hg] Luis Carlos Jung [facility] 09-14-2022 11:00-0500 Systolic blood pressure 120 mm[Hg] Luis Carlos Jung [facility] 09-14-2022 10:45-0500 Diastolic blood pressure 72 mm[Hg] Luis Carlos Jung [facility] 09-14-2022 10:45-0500 Heart rate 75 /min Luis Carlos Jung [facility] 09-14-2022 10:45-0500 Mean blood pressure 90 mm[Hg] Luis Carlos Jung [facility] 09-14-2022 10:45-0500 Systolic blood pressure 125 mm[Hg] Luis Carlos Montesinosten [facility] 09-14-2022 09:30-0500 Blood Pressure Location Luis Carlos Jung [facility] 09-14-2022 09:30-0500 Body temperature 98.06 [degF] Luis Carlos Jung [facility] 09-14-2022 09:30-0500 Respiratory rate 16 /min Luis Carlos Jung [facility] 09-12-2022 20:45-0500 Hourly Rounding Luis Carlos Jung [facility] Comment on above: Result Comment: dischage instructions gi merly, pt verbalizes understanding. pt ambulates off unit with steady gait 09-12-2022 20:00-0500 Blood Pressure Location Luis Carlos Jung [facility] 09-12-2022 20:00-0500 Diastolic blood pressure 79 mm[Hg] Luis Carlos Jung [facility] 09-12-2022 20:00-0500 Heart rate 84 /min Luis Carlos Jung [facility] 09-12-2022 20:00-0500 Hourly Rounding Luis Carlos Jung [facility] 09-12-2022 20:00-0500 Mean blood pressure 95 mm[Hg] Luis Carlos Jung [facility] 09-12-2022 20:00-0500 Respiratory rate 18 /min Luis Carlos Jung [facility] 09-12-2022 20:00-0500 Systolic blood pressure 128 mm[Hg] Luis Carlos Jung [facility] 09-12-2022 19:45-0500 Hourly Rounding Luis Carlos Jung [facility] Comment on above: Result Comment: pt arrives to unit in wh eelchair with mother. Changes into gown independently, oriented to room, demonstrates ability to use call light, call light in reach 09-08-2022 08:32-0500 Blood Pressure Location Luis Carlos Jung [facility] 09-08-2022 08:32-0500 Body temperature 97.34 [degF] Luis Carlos Jung [facility] 09-08-2022 08:32-0500 Diastolic blood pressure 74 mm[Hg] Luis Carlos Jung [facility] 09-08-2022 08:32-0500 Heart rate 90 /min Luis Carlos Jung [facility] 09-08-2022 08:32-0500 Hourly Rounding Luis Carlos Jung [facility] Comment on above: Result Comment: PLAN OF CARE DISCUSSED 09-08-2022 08:32-0500 Mean blood pressure 90 mm[Hg] Luis Carlos Fabiana [facility] 09-08-2022 08:32-0500 Respiratory rate 18 /min Luis Carlos Jung [facility] 09-08-2022 08:32-0500 Systolic blood pressure 123 mm[Hg] Luis Carlos Jung [facility] 09-05-2022 22:00-0500 Body temperature 98.6 [degF] Kaylinn Dokken [facility] 09-05-2022 22:00-0500 Diastolic blood pressure 73 mm[Hg] Kaylinn Dokken [facility] 09-05-2022 22:00-0500 Mean blood pressure 85 mm[Hg] Kaylinn Dokken [facility] 09-05-2022 22:00-0500 Respiratory rate 27 /min Kaylinn Dokken [facility] 09-05-2022 22:00-0500 SaO2% (BldA) [Mass fraction] 100 % Kaylinn Dokken [facility] 09-05-2022 22:00-0500 Systolic blood pressure 108 mm[Hg] Kaylinn Dokken [facility] 09-05-2022 21:01-0500 Heart rate 78 /min Kaylinn Dokken [facility] 09-05-2022 21:01-0500 Respiratory rate 20 /min Kaylinn Dokken [facility] 09-05-2022 21:01-0500 SaO2% (BldA) [Mass fraction] 94 % Kaylinn Dokken [facility] 09-05-2022 21:00-0500 Diastolic blood pressure 77 mm[Hg] Kaylinn Dokken [facility] 09-05-2022 21:00-0500 Mean blood pressure 87 mm[Hg] Kaylinn Dokken [facility] 09-05-2022 20:10-0500 Body temperature 97.7 [degF] Kaylinn Dokken [facility] 09-05-2022 20:10-0500 Diastolic blood pressure 81 mm[Hg] Kaylinn Dokken [facility] 09-05-2022 20:10-0500 Heart rate 83 /min Kaylinn Dokken [facility] 09-05-2022 20:10-0500 Respiratory rate 22 /min Kaylinn Dokken [facility] 09-05-2022 20:10-0500 SaO2% (BldA) [Mass fraction] 99 % Kaylinn Dokken [facility] 09-05-2022 20:10-0500 Systolic blood pressure 135 mm[Hg] Kaylinn Dokken [facility] 08-31-2022 01:03-0500 Hourly Rounding Luis Carlos Jung [facility] Comment on above: Result Comment: pt ambulates off unit at this time w/ steady gait. 08-31-2022 00:58-0500 Hourly Rounding Luis Carlos Jung [facility] Comment on above: Result Comment: this nurse gives dischar ge instructions to pt at this time. pt verbalizes understanding of all education given. denies further needs. will continue to monitor. 08-31-2022 00:50-0500 Blood Pressure Location Luis Carlos Jung [facility] 08-31-2022 00:50-0500 Diastolic blood pressure 69 mm[Hg] Luis Carlos Jung [facility] 08-31-2022 00:50-0500 Heart rate 67 /min Luis Carlos Jung [facility] 08-31-2022 00:50-0500 Hourly Rounding Luis Carlos Jung [facility] Comment on above: Result Comment: pt up to bathroom at thi s time to void and change into clothes. walks w/ steady gait. 08-31-2022 00:50-0500 Mean blood pressure 83 mm[Hg] Luis Carlos Jung [facility] 08-31-2022 00:50-0500 Respiratory rate 18 /min Luis Carlos Jung [facility] 08-31-2022 00:50-0500 Systolic blood pressure 112 mm[Hg] Luis Carlos Jung [facility] 08-30-2022 21:52-0500 Body temperature 98.06 [degF] Luis Carlos Jung [facility] 08-30-2022 21:52-0500 Diastolic blood pressure 74 mm[Hg] Luis Carlos Jung [facility] 08-30-2022 21:52-0500 Heart rate 82 /min Luis Carlos Jung [facility] 08-30-2022 21:52-0500 Mean blood pressure 90 mm[Hg] Luis Carlos Jung [facility] 08-30-2022 21:52-0500 Respiratory rate 18 /min Luis Carlos Jung [facility] 08-30-2022 21:52-0500 Systolic blood pressure 123 mm[Hg] Luis Carlos Jung [facility] 08-30-2022 21:45-0500 Blood Pressure Location Luis Carlos Jung [facility] 08-22-2022 17:19-0500 Hourly Rounding Luis Carlos Jung [facility] Comment on above: Result Comment: MONITORS OFF; PT UP TO D RESS. DISCHARGE INSTRUCTIONS GIVEN WITH VERBAL UNDERSTANDING. 08-22-2022 15:14-0500 Diastolic blood pressure 71 mm[Hg] Luis Carlos Jung [facility] 08-22-2022 15:14-0500 Heart rate 87 /min Luis Carlos Jung [facility] 08-22-2022 15:14-0500 Hourly Rounding Luis Carlos Jung [facility] 08-22-2022 15:14-0500 Mean blood pressure 86 mm[Hg] Luis Carlos Jung [facility] 08-22-2022 15:14-0500 Respiratory rate 18 /min Luis Carlos Jung [facility] 08-22-2022 15:14-0500 Systolic blood pressure 115 mm[Hg] Luis Carlos Jung [facility] 08-18-2022 12:28-0400 Hourly Rounding Luis Carlos Jung [facility] Comment on above: Result Comment: pt verbalizes understand ing of discharge instructions. pt states she has an appointment sunday with dr jung. pt ambulated out of unit 08-18-2022 10:28-0400 Hourly Rounding Luis Carlos Jung [facility] Comment on above: Result Comment: pt c/o left lower abd pa in. states it is intermittent and sharp. encouraged pt to get up and empty bladder. pt states pain is still 04/23. dr jung on unit & at bedside 08-18-2022 09:09-0400 Hourly Rounding Luis Carlos Jung [facility] Comment on above: Result Comment: pt sitting up in bed wit h breakfast tray, visitor at bedside 08-18-2022 07:15-0400 Blood Pressure Location Luis Carlos Jung [facility] 08-18-2022 07:15-0400 Diastolic blood pressure 56 mm[Hg] Luis Carlos Jung [facility] 08-18-2022 07:15-0400 Heart rate 69 /min Luis Carlos Jung [facility] 08-18-2022 07:15-0400 Mean blood pressure 74 mm[Hg] Luis Carlos Jung [facility] 08-18-2022 07:15-0400 Respiratory rate 16 /min Luis Carlos Jung [facility] 08-18-2022 07:15-0400 Systolic blood pressure 111 mm[Hg] Luis Carlos Jung [facility] 08-18-2022 05:58-0400 Blood Pressure Location Luis Carlos Jung [facility] 08-18-2022 05:58-0400 Diastolic blood pressure 59 mm[Hg] Luis Carlos Fabiana [facility] 08-18-2022 05:58-0400 Heart rate 67 /min Luis Carlos Jung [facility] 08-18-2022 05:58-0400 Mean blood pressure 77 mm[Hg] Luis Carlos Jung [facility] 08-18-2022 05:58-0400 Respiratory rate 16 /min Luis Carlos Jung [facility] 08-18-2022 05:58-0400 Systolic blood pressure 113 mm[Hg] Luis Carlos Jung [facility] 08-18-2022 04:06-0400 Blood Pressure Location Luis Carlos Jung [facility] 08-18-2022 04:06-0400 Body temperature 98.06 [degF] Luis Carlos Jung [facility] 08-18-2022 04:06-0400 Diastolic blood pressure 65 mm[Hg] Luis Carlos Jung [facility] 08-18-2022 04:06-0400 Heart rate 70 /min Luis Carlos Jung [facility] 08-18-2022 04:06-0400 Mean blood pressure 79 mm[Hg] Luis Carlos Jung [facility] 08-18-2022 04:06-0400 Respiratory rate 16 /min Luis Carlos Jung [facility] 08-18-2022 04:06-0400 Systolic blood pressure 107 mm[Hg] Luis Carlos Jung [facility] 08-13-2022 20:04-0400 Hourly Rounding Luis Carlos Jung [facility] Comment on above: Result Comment: Patient discharged off u nit. Discharge instructions were reviewed. Pt walks off unit without any notable signs or symtpoms of distress. 10-30-2022 19:45-0400 Hourly Rounding Luis Carlos Jung [facility] 08-13-2022 19:45-0400 Hourly Rounding Luis Carlos Jung [facility] Comment on above: Result Comment: Patient sitting in bed. BPP results reviewed with patient. Pt denied any additional questions. Call light within reach. 08-13-2022 18:12-0400 Heart rate 88 /min Luis Carlos Jung [facility] 08-13-2022 18:12-0400 Nursing Progress Note Reason Other: Pt updated on orders received from . payalzes understanding Luis Carlos Jung [facility] 08-13-2022 18:12-0400 SaO2% (BldA) [Mass fraction] 99 % Luis Carlos Fabiana [facility] 08-13-2022 17:33-0400 Body temperature 97.88 [degF] Luis Carlos Jung [facility] 08-13-2022 17:33-0400 Diastolic blood pressure 72 mm[Hg] Luis Carlos Jung [facility] 08-13-2022 17:33-0400 Mean blood pressure 88 mm[Hg] Luis Carlos Jung [facility] 08-13-2022 17:33-0400 Respiratory rate 18 /min Luis Carlos Jung [facility] 08-13-2022 17:33-0400 Systolic blood pressure 121 mm[Hg] Luis Carlos Fabiana [facility] 07-26-2022 10:22-0400 Hourly Rounding Luis Carlos Jung [facility] Comment on above: Result Comment: discharge instructions p rovided and pt signs discharge consent with RN witness. pt preparing for discharge, belly band placed on pt. RN offers wheelchair exit for discharge and pt declines and wants to walk down on own. 07-26-2022 10:22-0400 Promise to Return Luis Carlos Jung [facility] 07-26-2022 10:00-0400 Hourly Rounding Luis Carlos Jung [facility] 07-26-2022 10:00-0400 Promise to Return Luis Carlos Jung [facility] 07-26-2022 09:15-0400 Blood Pressure Location Luis Carlos Jung [facility] 07-26-2022 09:15-0400 Body temperature 97.7 [degF] Luis Carlos Jung [facility] 07-26-2022 09:15-0400 Diastolic blood pressure 62 mm[Hg] Luis Carlos Jung [facility] 07-26-2022 09:15-0400 Heart rate 70 /min Luis Carlos Jung [facility] 07-26-2022 09:15-0400 Hourly Rounding Luis Carlos Jung [facility] 07-26-2022 09:15-0400 Mean blood pressure 74 mm[Hg] Luis Carlos Jung [facility] 07-26-2022 09:15-0400 Respiratory rate 18 /min Luis Carlos Jung [facility] 07-26-2022 09:15-0400 Systolic blood pressure 97 mm[Hg] Luis Carlos Jung [facility] 07-26-2022 09:00-0400 Promise to Return Luis Carlos Jung [facility] 07-26-2022 08:14-0400 Body temperature 98.06 [degF] Luis Carlos Jung [facility] 07-26-2022 08:14-0400 Diastolic blood pressure 66 mm[Hg] Luis Carlos Jung [facility] 07-26-2022 08:14-0400 Heart rate 81 /min Luis Carlos Jung [facility] 07-26-2022 08:14-0400 Mean blood pressure 80 mm[Hg] Luis Carlos Jung [facility] 07-26-2022 08:14-0400 Respiratory rate 18 /min Luis Carlos Jung [facility] 07-26-2022 08:14-0400 Systolic blood pressure 109 mm[Hg] Luis Carlos Jung [facility] 07-17-2022 09:07-0400 Body temperature 97.88 [degF] Ko Dumas [facility] 07-17-2022 09:07-0400 Diastolic blood pressure 74 mm[Hg] Ko Dumas [facility] 07-17-2022 09:07-0400 Heart rate 85 /min Ko Dumas [facility] 07-17-2022 09:07-0400 Respiratory rate 16 /min Ko Dumas [facility] 07-17-2022 09:07-0400 SaO2% (BldA) [Mass fraction] 100 % Ko Dumas [facility] 07-17-2022 09:07-0400 Systolic blood pressure 117 mm[Hg] Ko Dumas [facility] 06-26-2022 21:38-0400 Blood Pressure Location Luis Carlos Jung [facility] 06-26-2022 21:38-0400 Diastolic blood pressure 61 mm[Hg] Luis Carlos Jung [facility] 06-26-2022 21:38-0400 Heart rate 83 /min Luis Carlos Jung [facility] 06-26-2022 21:38-0400 Hourly Rounding Luis Carlos Jung [facility] Comment on above: Result Comment: discharged ambulatory to pov 06-26-2022 21:38-0400 Mean blood pressure 75 mm[Hg] Luis Carlos Fabiana [facility] 06-26-2022 21:38-0400 Respiratory rate 16 /min Luis Carlos Montesinosten [facility] 06-26-2022 21:38-0400 Systolic blood pressure 102 mm[Hg] Luis Carlos Montesinosten [facility] 06-26-2022 21:15-0400 Blood Pressure Location Luis Carlos Fabiana [facility] 06-26-2022 21:15-0400 Diastolic blood pressure 64 mm[Hg] Luis Carlos Montesinosten [facility] 06-26-2022 21:15-0400 Heart rate 74 /min Luis Carlos Jung [facility] 06-26-2022 21:15-0400 Hourly Rounding Luis Carlos Jung [facility] 06-26-2022 21:15-0400 Mean blood pressure 78 mm[Hg] Luis Carlos Montesinosten [facility] 06-26-2022 21:15-0400 Respiratory rate 16 /min Luis Carlos Montesinosten [facility] 06-26-2022 21:15-0400 Systolic blood pressure 106 mm[Hg] Luis Carlos Fabiana [facility] 06-26-2022 21:05-0400 Body temperature 97.88 [degF] Luis Carlos Fabiana [facility] 06-26-2022 21:05-0400 Respiratory rate 18 /min Luis Carlos Jung [facility] 06-26-2022 21:00-0400 Hourly Rounding Luis Carlos Jung [facility] Comment on above: Result Comment: ice water given 06-19-2022 01:30-0400 Hourly Rounding Luis Carlos Jung [facility] Comment on above: Result Comment: updated on plan of care after speaking to dr jung. verb understanding and all d/c instructions provided. denies further needs/concerns. ambulates off unit without any further questions. 06-19-2022 01:00-0400 Hourly Rounding Luis Carlos Jung [facility] Comment on above: Result Comment: rests in bed on phone. d enies any needs. denies any pain at this time or any pain or cramping since arrival. call light within reach 06-19-2022 00:15-0400 Hourly Rounding Luis Carlos Jung [facility] 06-18-2022 23:54-0400 Body temperature 97.88 [degF] Luis Carlos Jung [facility] 06-18-2022 23:54-0400 Diastolic blood pressure 65 mm[Hg] Luis Carlos Jung [facility] 06-18-2022 23:54-0400 Heart rate 76 /min Luis Carlos Jung [facility] 06-18-2022 23:54-0400 Mean blood pressure 81 mm[Hg] Luis Carlos Jung [facility] 06-18-2022 23:54-0400 Respiratory rate 18 /min Luis Carlos Jung [facility] 06-18-2022 23:54-0400 Systolic blood pressure 112 mm[Hg] Luis Carlos Jung [facility] 06-18-2022 23:45-0400 Blood Pressure Location Luis Carlos Jung [facility] 05-01-2022 17:45-0400 Hourly Rounding Luis Carlos Jung [facility] Comment on above: Result Comment: reviewed disch inst and meds to take states understanding 05-01-2022 17:30-0400 Hourly Rounding Luis Carlos Jung [facility] 05-01-2022 17:23-0400 Body temperature 98.06 [degF] Luis Carlos Jung [facility] 05-01-2022 17:23-0400 Diastolic blood pressure 57 mm[Hg] Luis Carlos Jung [facility] 05-01-2022 17:23-0400 Heart rate 83 /min Luis Carlos Jung [facility] 05-01-2022 17:23-0400 Mean blood pressure 71 mm[Hg] Luis Carlos Jung [facility] 05-01-2022 17:23-0400 Respiratory rate 16 /min Luis Carlos Jung [facility] 05-01-2022 17:23-0400 Systolic blood pressure 99 mm[Hg] Luis Carlos Jung [facility] 05-01-2022 17:15-0400 Blood Pressure Location Luis Carlos Jung [facility] 05-01-2022 17:15-0400 Hourly Rounding Luis Carlos Jung [facility] 04-02-2022 13:30-0400 Hourly Rounding Luis Carlos Jung [facility] Comment on above: Result Comment: pt given discharge instr uctions at this time to follow up with fabiana sunday or states understanding to call office tomorrow for appointment 04-02-2022 12:30-0400 Hourly Rounding Luis Carlos Jung [facility] Comment on above: Result Comment: pt returns to bed from r estroom at this time denies discomfort at this time 04-02-2022 11:30-0400 Hourly Rounding Luis Carlos Jung [facility] Comment on above: Result Comment: pt sitting in bed at thi s time denies needs or discomfort 04-02-2022 06:28-0400 Body temperature 99.68 [degF] Luis Carlos Jung [facility] 04-02-2022 06:28-0400 Diastolic blood pressure 68 mm[Hg] Luis Carlos Jung [facility] 04-02-2022 06:28-0400 Heart rate 89 /min Luis Carlos Jung [facility] 04-02-2022 06:28-0400 Heart rate 86 /min Luis Carlos Jung [facility] 04-02-2022 06:28-0400 Mean blood pressure 83 mm[Hg] Luis Carlos Jung [facility] 04-02-2022 06:28-0400 Respiratory rate 20 /min Luis Carlos Jung [facility] 04-02-2022 06:28-0400 SaO2% (BldA) [Mass fraction] 98 % Luis Carlos Jung [facility] 04-02-2022 06:28-0400 Systolic blood pressure 114 mm[Hg] Luis Carlos Fabiana [facility] 03-23-2022 21:08-0400 Hourly Rounding Luis Carlos Jung [facility] Comment on above: Result Comment: Patient ambulatory off u nit. No signs or symptoms of distress noted. 03-23-2022 20:35-0400 Hourly Rounding Luis Carlos Jung [facility] Comment on above: Result Comment: Patient updated on plan of care. Verbalizes understanding. Call light in reach. 03-23-2022 19:49-0400 Blood Pressure Location Luis Carlos Jung [facility] 03-23-2022 19:49-0400 Body temperature 98.78 [degF] Luis Carlos Jung [facility] 03-23-2022 19:49-0400 Diastolic blood pressure 66 mm[Hg] Luis Carlos Jung [facility] 03-23-2022 19:49-0400 Heart rate 69 /min Luis Carlos Jung [facility] 03-23-2022 19:49-0400 Hourly Rounding Luis Carlos Jung [facility] Comment on above: Result Comment: Patient arrives on unit. 03-23-2022 19:49-0400 Mean blood pressure 79 mm[Hg] Luis Carlos Jung [facility] 03-23-2022 19:49-0400 Respiratory rate 16 /min Luis Carlos Jung [facility] 03-23-2022 19:49-0400 Systolic blood pressure 106 mm[Hg] Luis Carlos Jung [facility] 10-14-2020 13:15-0500 Pulse (Heart Rate) 74 /min [facility] 10-14-2020 13:15-0500 Pulse Oximetry 98 % [facility] 10-14-2020 13:15-0500 Respiratory Rate 16 /min [facility] 10-14-2020 13:00-0500 BP Diastolic 74 mm[Hg] [facility] 10-14-2020 13:00-0500 BP Systolic 123 mm[Hg] [facility] 10-14-2020 10:13-0500 BMI (Body Mass Index) 34.33 kg/m2 [facility] 10-14-2020 10:13-0500 Body Temperature 97.81 [degF] [facility] 10-14-2020 10:13-0500 Body weight 90.72 kg [facility] 10-14-2020 10:130500 Height 162.6 cm [facility] 08-09-2020 20:33-0400 BP Diastolic 81 mm[Hg] [place] 08-09-2020 20:33-0400 BP Systolic 122 mm[Hg] [place] 08-09-2020 20:33-0400 Pulse (Heart Rate) 78 /min [place] 08-09-2020 20:33-0400 Respiratory Rate 16 /min [place] 08-09-2020 19:03-0400 BMI (Body Mass Index) 39.48 kg/m2 [place] 08-09-2020 19:03-0400 Body Temperature 98.29 [degF] [place] 08-09-2020 19:03-0400 Body weight 104.33 kg [place] 08-09-2020 19:03-0400 Height 162.6 cm [place] 08-09-2020 19:03-0400 Pulse Oximetry 98 % [place] Encounters Encounter Date Encounter Type Care Provider Facility Start: 11-06-2023 End: 11-06-2023 ambulatory RASHAUN PURVIS Not Available Start: 11-04-2023 End: 11-04-2023 OB Triage Rashaun PURVIS [facility] Start: 10-31-2023 End: 10-31-2023 ambulatory RASHAUN PURVIS Not Available Start: 10-18-2023 End: 10-18-2023 ambulatory DODIE MILLER Not Available Start: 10-03-2023 End: 10-03-2023 ambulatory DODIE MILLER Not Available Start: 09-12-2023 End: 09-12-2023 ambulatory RASHAUN PURVIS Not Available Start: 08-23-2023 End: 08-23-2023 Lab Drop off ZORAN MYRICK [facility] Start: 08-23-2023 End: 08-24-2023 ambulatory [employer] ZORAN J ELEN Facility:[facility] Start: 08-19-2023 End: 09-14-2023 Pre-admission assessment Julia Wallace Haywood [facility] Start: 08-18-2023 End: 08-18-2023 ambulatory DO Julia DukePatricia Haywood Facility:[facility] Start: 08-18-2023 End: 08-18-2023 OB Triage Julia DukePatricia Haywood [facility] Start: 07-25-2023 End: 07-25-2023 Emergency department patient visit Kristian Guillermo Facility:[facility] Start: 07-25-2023 End: 07-25-2023 Emergency department patient visit Kristian Guillermo [facility] Start: 06-28-2023 End: 06-29-2023 ambulatory Roverto V. Spasic Facility:[facility] Start: 06-28-2023 End: 06-28-2023 Patient encounter procedure Roverto V. Spasic [facility] Start: 06-14-2023 End: 06-14-2023 Emergency department patient visit Kristian Guillermo Facility:[facility] Start: 06-14-2023 End: 06-14-2023 Emergency department patient visit Kristian Guillermo [facility] Start: 06-12-2023 End: 06-13-2023 ambulatory Luis Carlos Jung Facility:[facility] Start: 06-12-2023 End: 06-12-2023 Patient encounter procedure Luis Carlos Jung [facility] Start: 05-21-2023 End: 05-22-2023 Emergency department patient visit DO Gopi Rodriguez Facility:[facility] Start: 05-21-2023 End: 05-21-2023 Emergency department patient visit Gopi Rodriguez [facility] Start: 04-30-2023 End: 05-01-2023 ambulatory Luis Carlos Jung Facility:[facility] Start: 04-30-2023 End: 04-30-2023 Lab Drop off Luis Carlos Jung [facility] Start: 04-30-2023 End: 05-01-2023 ambulatory Luis Carlos Jung Facility:[facility] Start: 04-30-2023 End: 04-30-2023 Patient encounter procedure Luis Carlos Jung [facility] Start: 04-26-2023 End: 04-26-2023 Emergency department patient visit Vimalelena Leonfelipe Facility:[facility] Start: 04-26-2023 End: 04-26-2023 Emergency department patient visit Vimalelena Charles Bert [facility] Start: 01-31-2023 End: 01-31-2023 Emergency department patient visit Kristian Guillermo Facility:[facility] Start: 01-31-2023 End: 01-31-2023 Emergency department patient visit Kristian Guillermo [facility] Start: 09-24-2022 End: 09-27-2022 Evaluation and management of inpatient Luis Carlos Jung Facility:[facility] Start: 09-22-2022 End: 09-22-2022 ambulatory Luis Carlos Jung Facility:[facility] Start: 09-22-2022 End: 09-22-2022 OB Triage Luis Carlos Jung [facility] Start: 09-20-2022 End: 09-20-2022 ambulatory Luis Carlos Jung Facility:[facility] Start: 09-20-2022 End: 09-20-2022 OB Triage Luis Carlos Jung [facility] Start: 09-19-2022 End: 09-19-2022 ambulatory Jj MIKE Facility:[facility] Start: 09-19-2022 End: 09-19-2022 OB Triage Jj MIKE [facility] Start: 09-14-2022 End: 09-14-2022 ambulatory Luis Carlos Jung Facility:[facility] Start: 09-14-2022 Emergency department patient visit DO Gopi Rodriguez Facility:[facility] Start: 09-14-2022 End: 09-14-2022 OB Triage Luis Carlos Jung [facility] Start: 09-12-2022 End: 09-12-2022 ambulatory Luis Carlos Jung Facility:[facility] Start: 09-12-2022 End: 09-12-2022 OB Triage Luis Carlos Jung [facility] Start: 09-08-2022 End: 09-08-2022 ambulatory Luis Carlos Jung Facility:[facility] Start: 09-08-2022 End: 09-08-2022 OB Triage Luis Carlos Jung [facility] Start: 09-06-2022 End: 12-06-2022 ambulatory Luis Carlos Jung Facility:[facility] Start: 09-05-2022 End: 09-06-2022 Emergency department patient visit DO Gopi Rodriguez Facility:[facility] Start: 09-05-2022 End: 09-05-2022 Emergency department patient visit Gopi Rodriguez [facility] Start: 09-05-2022 End: 12-05-2022 Patient encounter procedure SELF REFERRAL [facility] Start: 09-04-2022 End: 09-05-2022 ambulatory Luis Carlos Rochelle Jung Facility:[facility] Start: 09-04-2022 End: 09-04-2022 Lab Drop off Luis Carlos Rochelle Jung [facility] Start: 08-30-2022 End: 08-31-2022 ambulatory Luis Carlos Jung Facility:[facility] Start: 08-30-2022 End: 08-31-2022 OB Triage Luis Carlos Rochelle Jung [facility] Start: 08-22-2022 End: 08-22-2022 OB Triage Luis Carlos Rochelle Jung [facility] Start: 08-18-2022 End: 08-18-2022 OB Triage Luis Carlos Rochelle Jung [facility] Start: 08-13-2022 End: 08-13-2022 OB Triage Luis Carlos Byrd Fabiana [facility] Start: 07-26-2022 End: 07-26-2022 OB Triage Luis Carlos Byrd Fabiana [facility] Start: 07-17-2022 End: 07-17-2022 Emergency department patient visit Ko Dumas [facility] Start: 06-28-2022 End: 06-28-2022 Patient encounter procedure Luis Carlos Rochelle Jung [facility] Start: 06-26-2022 End: 06-26-2022 OB Triage Luis Carlos Byrd Fabiana [facility] Start: 06-20-2022 End: 07-15-2022 Pre-admission assessment Luis Carlos Byrd Fabiana [facility] Start: 06-18-2022 End: 06-19-2022 OB Triage Luis Carlos Byrd Fabiana [facility] Start: 05-02-2022 End: 06-15-2022 Pre-admission assessment THANG MILLAN [facility] Start: 05-01-2022 End: 05-01-2022 OB Triage Luis Carlos Rochelle Jung [facility] Start: 04-02-2022 End: 04-02-2022 OB Triage Luis Carlos Byrd Fabiana [facility] Start: 03-23-2022 End: 03-23-2022 OB Triage Luis Carlos Byrd Fabiana [facility] Start: 03-16-2022 End: 03-16-2022 Patient encounter procedure Luis Carlos Byrd Fabiana [facility] Start: 02-15-2022 End: 02-15-2022 Lab Drop off Luis Carlos Jung [facility] Start: 02-23-2021 End: 02-23-2021 Patient encounter procedure Martha Webb MD Work Phone: [facility] Start: 02-23-2021 Results Only Martha Webb MD Work Phone: Gastroenterology Start: 10-14-2020 End: 10-14-2020 Emergency department patient visit PHYSICIAN NO [facility] Start: 10-14-2020 End: 10-14-2020 Emergency department patient visit Regine Chow Work Phone: [facility] Emergency Department Comment on above: Vertigo (Primary Dx) Start: 08-09-2020 End: 08-09-2020 Emergency department patient visit [facility] Start: 08-09-2020 End: 08-09-2020 Emergency department patient visit [facility] Work Phone: [facility] ED Comment on above: Contusion of right k nee, initial encounter (Primary Dx); Contusion of multiple sites of right shoulder and upper arm, initial encounter Start: 07-23-2017 End: 07-23-2017 Emergency department patient visit NKECHI RAYGOZAINE MELISSA [facility] Guerra Procedures Date Procedure Procedure Detail [...] 05-12-2028 Tetanus vaccination Tetanus: Every 1 0yrs [facility] Start: 06-15-2021 Influenza vaccination INFLUENZ A (Season Ended) [facility] Start: 06-15-2020 Influenza vaccination Flu vaccine (# 1) [place] Start: 2014 PAP TESTING PAP TESTING [facility] Start: 2014 Screening for malign ant neoplasm of cervix Cervical cancer screen [place] Start: 2012 DTaP/Tdap/Td vaccine (1 - Tdap) DTaP/Tdap/Td vaccine (1 - Tdap) [place] Start: 2012 Urine microalbumin profile DTAP,TDAP,TD (1 - Tdap) [facility] Start: 2011 Hepatitis C antibody , confirmatory test Hepatitis C Screening [facility] Start: 2011 HEPATITIS C SCREENING HEPATITIS C SC REENING [facility] Start: 2011 HIV SCREENING HIV SCREENING [facility] Start: 2008 [facility] [place] [place] Start: 2005 Adolescent depressio n screening assessment [facility] Start: 2004 HPV vaccine (1 - 2-d ose series) HPV vaccine (1 - 2-dose series) [place] Start: 1996 History and physical examination, annual for health maintenance Wellness Visit [facility] Start: 1994 Varicella vaccine (1 of 2 - 2-dose childhood series) Varicella vaccine (1 of 2 - 2-dose childhood series) [place] Start: 1993 Screening for malign ant neoplasm of cervix Pap Smear [facility] PT ED PATIENT INFORMATION PT ED PATIENT INFORMATION Other 02/23/2021 [facility] Immunizations Immunization Date Immunization Notes Care Provider Lennox ramirez 08-18-2023 influenza, seasonal, injectable Julia Haywood [facility] 09-25-2022 influenza, seasonal, injectable SELF REFERRAL [facility] Comment on above: Early/Late Reason: E isaac/Late Reason: Nursing Judgment 01-28-2021 COVID-19, mRNA, LNP- S, PF, 30 mcg/0.3 mL dose; Translations: [[employer] COVID-19 Vaccine] Luis Carlos Jung [facility] Comment on above: Reason for Medicatio n: Prophylaxis Reason for Medicatio n: Prophylaxis 12-31-2020 COVID-19, mRNA, LNP- S, PF, 30 mcg/0.3 mL dose; Translations: [Pfizer-BioNTech COVID-19 Vaccine] Luis Carlos Fabiana [facility] Comment on above: Reason for Medicatio n: Prophylaxis Reason for Medicatio n: Prophylaxis 05-12-2018 tetanus toxoid, reduced diphtheria toxoid, and acellular pertussis vaccine, adsorbed; Translations: [Adacel (Tdap)] Luis Carlos Fabiana [facility] Payers Date Payer Category Payer Unknown [id number] 2019 Unknown [id number] 1. [id number] 1993 Unknown [id number] 2.16.8 40.1.597843.3.579.2.173 1993 Unknown [id number] 2.16. 840.1.870438.3.579.2.903 1993 Unknown [id number] 2.16.8 40.1.742690.3.579.2.727 1993 Unknown [id number] 2.16.8 40.1.950373.3.579.2.727 1993 Unknown [id number] 2.16.8 40.1.227785.3.579.2.727 1993 Unknown [id number] 2.16.8 40.1.171870.3.579.2.727 1993 Unknown [id number] 2.16.8 40.1.693401.3.579.2.727 1993 Unknown [id number] 2.16.8 40.1.571945.3.579.2.727 1993 Unknown [id number] 2.16.8 40.1.191497.3.579.2. 1993 Unknown [id number] 2.16.8 40.1.857296.3.579.2. 1993 Unknown [id number] 2.16.8 40.1.124168.3.579.2. 1993 Unknown [id number] 2.16.8 40.1.797545.3.579.2. 1993 Unknown [id number] 2.16.8 40.1.641617.3.579.2. 1993 Unknown [id number] 2.16.8 40.1.865344.3.579.2 1993 Unknown [id number] 2.16.8 40.1.109241.3.579.2 1993 Unknown [id number] 2.16.8 40.1.207931.3.579.2 1993 Unknown [id number] 2.16.8 40.1.323993.3.579.2 1993 Unknown [id number] 2.16.8 40.1.092304.3.579.2 1993 Unknown [id number] 2.16.8 40.1.432286.3.579.2. 1993 Unknown [id number] 2.16.8 40.1.426975.3.579.2 1993 Unknown [id number] 2.16.8 40.1.063952.3.579.2. 1993 Unknown [id number] 2.16.8 40.1.558576.3.579.2. 1993 Unknown [id number] 2.16.8 40.1.516954.3.579.2. 1993 Unknown [id number] 2.16.8 40.1.208163.3.579.2 1993 Unknown [id number] 2.16.8 40.1.741349.3.579.2.727 1993 Unknown [id number] 2.16.8 40.1.982879.3.579.2.727 1993 Unknown [id number] 2.16.84 0.1.702925.3.579.2.1259 1993 Unknown [id number] 2.16.84 0.1.549800.3.579.2.1259 1993 Unknown [id number] 2.16.840 .1.448816.3.579.2.1259 1993 Unknown [id number] 2.16.840 .1.323540.3.579.2.1259 1993 Unknown [id number] 2.16.840 .1.888874.3.579.2.1259 1993 Unknown [id number] 2.16.840 .1.444901.3.579.2.1259 Social History Date Type Detail Facility Start: 08-09-2020 End: 10-14-2020 Tobacco smoking status NHIS Current every day smoker [place] Start: 08-09-2020 End: 10-14-2020 Tobacco use and exposure Never used [place] Start: 10-14-2020 Alcohol intake Ex-drinker (finding) [facility] Start: 1993 Sex Assigned At Not on file [place] Exposure to SARS-CoV -2 (event) Not sure [place] Start: 08-09-2020 Cigarettes smoked current (pack per day) - Reported [place] Start: 08-09-2020 Alcohol intake Lifetime non-d val (finding) [place] Start: 08-09-2020 History SDOH Alcohol Frequency 1 [place] Start: 07-06-2021 End: 08-18-2022 Tobacco smoking status Light tobacco smoker (finding) [facility] Sex Assigned At Female [facility] Tobacco [facility] Comment on above: current current denies Start: 06-28-2023 Tobacco smoking status Ex-smoker (fi nding) [facility] Comment on above: current Tobacco smoking status Never [facility] Comment on above: current Tobacco smoking status No Smokin g Status Entered [facility] Functional Status Date Assessment Result Facility 11-04-2023 Functional Status N/A [facility] 08-18-2023 Functional Status N/A [facility] 07-25-2023 Functional Status N/A [facility] 06-28-2023 Functional Status N/A [facility] 06-14-2023 Functional Status N/A [facility] 05-21-2023 Functional Status N/A [facility] 04-26-2023 Functional Status N/A [facility] 01-31-2023 Functional Status N/A [facility] 09-22-2022 Functional Status N/A [facility] 09-20-2022 Functional Status N/A [facility] 09-19-2022 Functional Status N/A [facility] 09-14-2022 Functional Status N/A [facility] 09-12-2022 Functional Status N/A [facility] 09-08-2022 Functional Status N/A [facility] 09-05-2022 Functional Status Yes [facility] 08-30-2022 Functional Status N/A [facility] 08-22-2022 Functional Status N/A [facility] 08-18-2022 Functional Status N/A [facility] 08-13-2022 Functional Status N/A [facility] 07-26-2022 Functional Status N/A [facility] 07-17-2022 Functional Status N/A [facility] 06-26-2022 Functional Status N/A [facility] 06-18-2022 Functional Status N/A [facility] 05-01-2022 Functional Status N/A [facility] 04-02-2022 Functional Status N/A [facility] Clinical Notes 03-10-2021 to 11-04-2023 Note Date & Type Note Facility 11-04-2023 Evaluation + Plan note Diagnostic Tests PendingUrine Culture 11/04/23 [facility] 11-04-2023 Hospital Discharg e instructions [facility] 11/04/2023 07:55:34 With:Rashaun PURVIS Address: [address] [place] [address]- Business (1) When:11/06/2023 Comments:Call for any problems.Appointment has already been scheduledCall physician if symptoms worsenPlease call if you need to rescheduleReturn for contractions closer, longer, harderReturn for decreased movementReturn if ruptured membranes or vaginal bleeding [facility] 08-23-2023 Evaluation + Plan note Diagnostic Tests PendingT3 Total 08/23/23 [facility] 08-18-2023 Note The following Any t Education Materials have been given to the patient: [facility]Material [facility] 08-18-2023 [facility] Discharg e instructions Patient Education 08/18/2023 08:14:46 Second Trimester of , Vrhz-xi-Evkh Second Trimester of The second trimester of [...] Follow these instructions at home: Medicines Take wzqm-svr-fbrrsgi and prescription medicines only as told by [...] a counselor. Where to find more information [employer]: americanpregnancy.org [employer]nec[employer]: www.acog.org Office [...] provider. Document Revised: 03/09/2021 Document Reviewed: 01/13/2021 [employer] Patient Education 2022 [employer]. [facility] 07-25-2023 Evaluation + Plan note Extrac [...] Diagnostic Tests Pending * Urine Culture 07/25/23 [facility]10-11-2023 Hospital Discharge instructions Patient Education 07/25/2023 [...] to keep your urine pale yellow. Take vuan-vou-skqgbms and prescription medicines only as told by [...] provider. Document Revised: 06/14/2021 Document Reviewed: 06/14/2021 [employer] Patient Education 2022 [email or web address] [facility] 07/25/2023 08:14:26 With:Luis Carlos Jung Address: [facility] [address], [place] [id number] [facility] (1) When:07/28/2023 09:56:27 [facility]09-14-2023 Evaluation + Plan note Diagnostic Tests Pending * Urine Culture 06/28/23 [facility]09-14-2023 Hospital Discharge instructions Patient Education 06/28/2023 11:39:14 Urinary Tract Infection, Adult, Nwum-tq-Ghxw Urinary Tract Infection, Adult A urinary tract [...] Follow these instructions at home: Medicines Take uydj-ttf-tygdvpu and prescription medicines only as told by [...] provider. Document Revised: 05/13/2021 Document Reviewed: 05/13/2021 [employer] Patient Education 2022 [employer]. 06/28/2023 11:39:14 Urinary Tract Infection, Adult, Obwx-vv-Rcbz Urinary Tract Infection, Adult A urinary tract [...] Follow these instructions at home: Medicines Take vktn-boq-oxkgfrd and prescription medicines only as told by [...] provider. Document Revised: 05/13/2021 Document Reviewed: 05/13/2021 [employer] Patient Education 2022 [employer] Follow Up Care 06/28/2023 10:22:58 With:Fabiana MARION, SAMPSON Buenrostro Address: [address] [place] [address]- When: Unknown [facility] [id number] Evaluation + Plan noteExtracted from: Title:ED Note Author:Jos Ugalde PA-C te:06/14/23 1. Abdominal pain (R10.9: Un specified abdominal pain) Orders: ABO/Rh Automated Diff Basic Metabolic Panel Beta hCG Quantitative CBC w/ Auto Diff eGFR Extra Blue Tube Extra SST Tube Hepatic Function Panel Lipase Level UA With Cult Reflex US 1st Trimester [facility]08-08-2023 Hospital Discharge instructions Patient Education 05/21/2023 23:23:44 Nonspecific Chest Pain, Adult, Znhw-ji-Ndcg Nonspecific Chest Pain Chest pain can be [...] Follow these instructions at home: Medicines Take mijz-ffh-jestsrk and prescription medicines only as told by [...] ?Eating a heart-healthy diet. A diet and events specialist (dietitian) can help you to learn [...] Document Reviewed: 12/15/2021 Elsevier Patient Education 2022 Phoneplus. 05/21/2023 23:23:44 Nausea and Vomiting, Adult, Yurr-hz-Qdnw Nausea and Vomiting, Adult Nausea is feeling [...] fruit juice). ?Low-calorie sports drinks. Eat bland, qlyw-ki-tojoss foods in small amounts as you are able, such as: ?Bananas. ?Applesauce. ?Rice. ?Low-fat (lean) meats. ?[place]. ?Crackers. Avoid drinking fluids that have a lot of sugar or caffeine in them. This includes energy drinks, sports drinks, and soda. Avoid alcohol. Avoid spicy or fatty foods. General instructions Take fpkh-rik-cmwzelo and prescription medicines only as told by your doctor. Drink enough fluid to keep your pee (urine) pale yellow. Wash your hands often with soap and water for at least 20 seconds. If you cannot use soap and water, use hand music arranger. Make sure that everyone in your home [...] your doctor about eating and drinking. Take ktqe-sdt-vkgtseh and prescription medicines only as told by your doctor. Contact your doctor if your symptoms get worse or you have new symptoms. Keep all follow-up visits. This information is not intended to replace advice given to you by your health care provider. Make sure you discuss any questions you have with your health care provider. Document Revised: 04/07/2022 Document Reviewed: 04/07/2022 [employer] Patient Education 2022 [employer] 05/21/2023 23:23:44 Abdominal Pain During , Payb-oq-Cbig Abdominal Pain During Belly (abdominal) pain is [...] keep your pee (urine) pale yellow. Take furh-axf-kreqxxo and prescription medicines only as told by [...] provider. Document Revised: 06/14/2021 Document Reviewed: 06/14/2021 [employer] Patient Education 2022 [employer]plus. Follow Up Care 05/21/2023 20:38:52 With:Luis Carlos Jung Address: [facility] [address] [address] [address] Business (1) When:05/24/2023 Comments:Take the Pepcid once daily until you have completed the course. You can use the Zofran every 6 hours as needed for nausea and vomiting. Please follow-up with your primary care doctor next 2 to 3 days. Please return to the ED for any new or worsening symptoms. [facility]08-07-2023 Evaluation + Plan noteExtracted from: Title:ED [...] day(s), # 15 cap(s), Refills(s) 0, Pharmacy: [facility], 162.6, cm, 05/21/23 20:50:00 EDT, Height/Length Dosing, 75.3, kg, 05/21/23 20:50:00 EDT, Weight Dosing famotidine, 20 mg = 2 mL, Soln-IV, IV Push, Once, Stop date 05/21/23 21:00:00 EDT, STAT, Start date 05/21/23 21:00:00 EDT, 05/21/23 21:00:00 EDT famotidine, 20 mg = 1 tab(s), Oral, Daily, # 14 tab(s), Refills(s) 0, Pharmacy: [facility], 162.6, cm, 05/21/23 20:50:00 [...] UA With Cult Reflex US 1st Trimester [facility]07-17-2023 Evaluation + Plan note Diagnostic Tests Pending * PAP [id number] 04/30/23 * Urine Culture 04/30/23 [facility]07-17-2023 Evaluation + Plan note Diagnostic Tests Pending * RPR with Conf Rfx 04/30/23 * HIV Screen 4th Generation wRfx 04/30/23 * Rubella Antibody IgG 04/30/23 * Hepatitis B Surface Antigen 04/30/23 [facility]07-13-2023 Evaluation + Plan noteExtracted from: Title:ED Note Author:Jos Ugalde PA-C te:04/26/23 Abdominal pain (R10.9: Unspe cified abdominal pain) (Z34.90: Encounter for supervision of normal , unspecified, unspecified trimester) Orders: Beta hCG Quantitative Extra Lav Tube Extra SST Tube US 1st Trimester US Transvaginal [facility]07-13-2023 Hospital Discharge instructions Patient Education 04/26/2023 [...] to keep your urine pale yellow. Take utmd-bjg-wuvzloa and prescription medicines only as told by [...] provider. Document Revised: 06/14/2021 Document Reviewed: 06/14/2021 [employer] Patient Education 2022 [employer]plus. Follow Up Care 04/26/2023 08:52:22 With:Luis Carlos Jung Address: [address] [place] [address] [facility] (1) When:04/29/2023 10:58:02 [facility]04-19-2023 Evaluation + Plan noteExtracted from: Title:ED Note Author:Kristina Guillermo DO Date: Acute headache (R51.9: Heada [...] Head eGFR Oxygen Therapy PT & PTT [facility]04-19-2023 Hospital Discharge instructions Patient Education 01/31/2023 [...] Follow these instructions at home: Medicines Take hqup-zdt-vulrcvm and prescription medicines only as told by your health care provider. Ask your health care provider if the medicine prescribed to you: ?Requires you to avoid driving or using heavy machinery. ?Can cause constipation. You may need to take these actions to prevent or treat constipation: ?Drink enough fluid to keep your urine pale yellow. ?Take hpea-rfm-kxakhfb or prescription medicines. ?Eat foods that are [...] provider. Document Revised: 01/23/2020 Document Reviewed: 11/13/2019 [employer] Patient Education 2022 [employer]plus. Follow Up Care 01/31/2023 09:42:02 With:THANG BELINDA Address: [address] [place] [id number] Business (1) When:02/03/2023 11:57:07 Comments:Call the office [...] fever, or any new or worsening symptoms. [facility]12[facility]16-2022 [facility] Comment: Electronically Signed By: Luis Carlos Jung MD\.br\Date and Time Signed: 09/29/22 09:25 [id number] [facility] Comment on above:Result Comment: Electronically Signed By: Luis Carlos Jung MD\.br\Date and Time Signed: 09/29/22 09:25 [id number] NoteThe following Patient Education Materials have been given to the patient: [facility]12-09-2022 NoteThe following Patient Education Materials have been given to the patient: [facility]12-09-2022 Hospital Discharge instructions Follow Up Care 09/22/2022 15:11:14 With:Luis Carlos Jung Address: [facility] [address] [place] [address]- Business (1) When:09/24/2022 20:30:00 Comments:Appointment has already been scheduledCall for any problems.Call for fever > 100.5 FCall for severe abdominal painCall physician for heavy vaginal bleedingCall physician if symptoms worsenReturn for contractions closer, longer, harderReturn for decreased movementReturn if ruptured membranes or vaginal bleedingCall at 7:30 pm Sunday to confirm induction at 8:30 [facility]12-07-2022 NoteThe following Patient Education Materials have been given to the patient: [facility]12-06-2022 NoteThe following Patient Education Materials have been given to the patient: [facility]12-06-2022 Hospital Discharge instructions Follow Up Care 09/19/2022 01:24:08 With:Luis Carlos Jung Address: [address], [facility] [address] [place] [address] Business (1) When:09/20/2022 Comments:Appointment has already been scheduledCall Dr if fever>100.5 F, heavy bleedingCall for any problems.Call for severe abdominal painCall physician for heavy vaginal bleedingCall physician if symptoms worsenReturn for contractions closer, longer, harderPlease call if you need to rescheduleReturn for decreased movementReturn if ruptured membranes or vaginal bleeding [facility]12-01-2022 NoteThe following Patient Education Materials have been given to the patient: [facility]12-01-2022 Hospital Discharge instructions Patient Education 09/14/2022 11:56:10 Sinus Headache, Qkxt-ku-Rimn Sinus Headache A sinus headache happens when [...] on the bottle or box. Medicines Take nuxy-hbx-gbtujpt and prescription medicines only as told by [...] face, forehead, ears, or upper teeth. Take zmoo-yxw-rpxndbu and prescription medicines only as told by your doctor. If told, apply a warm, moist washcloth to your face. This can help to lessen pain. This information is not intended to replace advice given to you by your health care provider. Make sure you discuss any questions you have with your health care provider. Document Released: 01/31/2012 Document Revised: 09/13/2018 Document Reviewed: 07/12/2018 [employer] Patient Education 2020 [employer] Follow Up Care 09/14/2022 09:13:06 With:Luis Carlos Jung Address: [place], [facility] [address] [place] [address]- Business (1) When:09/20/2022 Comments:Return if ruptured membranes or vaginal bleedingReturn for decreased movementReturn for contractions closer, longer, harderCall physician if symptoms worsenCall for severe abdominal painCall for fever > 100.5 F Drink 8-10 glasses of water/day Use SUDAFED, TYLENOL AND BENADRYL as previouslydirected by Dr Fabiana Longoria - [facility]11-29-2022 NoteThe following Patient Education Materials have been given to the patient: EducationMateriTiffanie [facility]11-29-2022 Hospital Discharge instructions Patient Education 09/12/2022 20:39:28 Third Trimester of , Lgpm-yh-Ligy Third Trimester of The third trimester is from week 28 through week 40 (months 7 through 9). This trimester is when your unborn baby (fetus) is growing very fast. At the end of the ninth month, the unborn baby is about20 inches in length. It weighs about 6 10 pounds. Follow these instructions at home: Medicines Take vsie-rtk-rgxynqj and prescription medicines only as told by [...] 12/26/2010 Document Revised: 01/22/2020 Document Reviewed: 11/06/2017 [employer] Patient Education 2020 Phoneplus. Follow Up Care 09/12/2022 19:44:10 With:Luis Carlos Jung Address: [address] [place] [address] [facility] (1) When:09/20/2022 Comments:Appointment has already been scheduledCall Dr if fever>100.5 F, heavy bleedingCall for any problems.Call for severe abdominal painCall physician for heavy vaginal bleedingCall physician if symptoms worsenPlease call if you need to rescheduleReturn for contractions closer, longer, harderReturn for decreased movementReturn if ruptured membranes or vaginal bleeding [facility]11-25-2022 NoteThe following Patient Education Materials have been given to the patient: [facility] Hospital Discharge instructions Follow Up Care 09/08/2022 08:14:23 With:Luis Carlos Jung Address: [address], [place] [address]- [facility] (1) When:09/11/2022 Comments:Return for contractions closer, longer, harderReturn for decreased movementReturn if rupturedmembranes or vaginal bleeding [facility]11-23-2022 Hospital Discharge instructions Patient Education 09/05/2022 [...] the coronavirus come from? In September 2019, [place] told the World Health Organization (WHO) of several cases of lung disease (human respiratory illness). These cases were linked to an open seafood and livestock market in the [facility]. The link to the seafood and [...] and virus naming World Health Organization (WHO): www.who.int/emergencies/diseases/buase-mbumhsncybe-4994/technical-g uidance/pcoafd-byj-iouhfcojfhg-disease-(covid-2019)-wju-xag-riohc-vcuy-wizwbs-db Who is at risk for complications from [...] relieve his or her symptoms by using titj-oyf-uezcfqc medicines that treat sneezing, coughing, and runny [...] water are not available, use alcohol-based hand music arranger. Avoid touching your face, mouth, nose, or [...] Prevention (CDC): www.cdc.gov/coronavirus/2019-ncov/travelers/index.html World Health Organization (WHO): www.who.int/emergencies/diseases/xinrb-lsovptnpaxb-3887/travel-advice Know the risks and take action to [...] water are not available, use alcohol-based hand music arranger. Cough or sneeze into a tissue, sleeve, [...] in hot, soapy water or use a instructor ground services. Air-dry your dishes. Wash laundry in hot [...] Health Organization (WHO) Information and news updates: www.who.int/emergencies/diseases/magsp-aeyeqvrjssn-5852 Coronavirus health topic: www.who.int/health-topics/coronavirus Questions and answers on COVID-19: www.who.int/news-room/q-a-detail/x-g-rmnpbpqbtnybs Global tracker: NetDocuments [employer] Academy of Pediatric[employer] (AAP) Information for families: www.healthychildren.org/Slovak/health-issues/conditions/chest-lungs/Pages /7330-Xcucj-Bplvzpfqzei.aspx The coronavirus situation is changing rapidly. Check [...] 01/27/2020 Document Revised: 01/27/2020 Document Reviewed: 01/27/2020 [employer] Patient Education 2019 Phoneplus. 09/05/2022 22:13:40 COVID-19 COVID-19 COVID-19 is a [...] to fight infection (immunocompromised). Live in a group home or long-term care facility. Have a long-term [...] managed at home with rest, fluids, and obhc-she-fvjhopd medicines. Treatment for a serious infection usually [...] are safe for you. General instructions Take syxo-ibe-nqowwnh and prescription medicines only as told by [...] water are not available, usean alcohol-based hand music arranger. ?Avoid touching your mouth, face, eyes, or [...] water are not available, use alcohol-based hand music arranger. Stay away from other members of your [...] have a weak immunity, live in a group home, or have chronic disease. There is no [...] 11/06/2019 Document Revised: 02/26/2020 Document Reviewed: 11/06/2019 [employer] Patient Education 2020 Phoneplus. Follow Up Care 09/05/2022 20:08:29 With:Luis Carlos Jung Address: [address] [place], [place] [address] [address] Business (1) When:09/08/2022 21:42:10 Comments:Use the albuterol inhaler 2 puffs every 4 hours for the next 2 to 3 days, you can use the Zofran every 6 hours as needed for nausea and vomiting. Please follow-up with your primary care doctor in thenext 2 to 3 days. Please return to the ED for any new or worsening symptoms. With:THANG MILLAN Address: [address] [place] [address] Business (1) When:09/08/2022 21:42:06 [facility]11-22-2022 Evaluation + Plan noteExtracted from: Title:ED [...] Nausea/Vomiting, # 12 tab(s), Refills(s) 0, Pharmacy: [facility], 163, cm, 09/05/22 20:14:00 [...] Therapy PT & PTT Rapid COVID Antigen ([facility]) Saline Lock Insert Troponin 0 Hr. XR Chest Single View Future Appointments Appointment Date:09/06/2022 07:00:00 AM Scheduled Provider: Location:[facility] Appointment Type:Outpatient COVID Testing [facility]11-21-2022 Evaluation + Plan note Diagnostic Tests Pending * Group B Streptococcus colonization by PCR 09/04/22 [facility]11-17-2022 NoteThe following Patient Education Materials have been given to the patient: EducationMateriTiffanie [facility]11-17-2022 Hospital Discharge instructions Patient Education 08/31/2022 00:56:47 Third Trimester of , Mnde-ye-Hhpk Third Trimester of The third trimester is from week 28 through week 40 (months 7 through 9). This trimester is when your unborn baby (fetus) is growing very fast. At the end of the ninth month, the unborn baby is about20 inches in length. It weighs about 6 10 pounds. Follow these instructions at home: Medicines Take prxm-ljk-vjortjv and prescription medicines only as told by [...] 12/26/2010 Document Revised: 01/22/2020 Document Reviewed: 11/06/2017 [employer] Patient Education 2020 Phoneplus. Follow Up Care 08/30/2022 21:31:53 With:Luis Carlos Jung Address: [address] [address]- Business (1) When:09/04/2022 Comments:Call for any problems.Call for severe abdominal painCall physician for heavy vaginal bleedingReturnfor contractions closer, longer, harderReturn for decreased movementReturn if ruptured membranes or vaginal bleeding [facility]11-08-2022 Hospital Discharge instructions Follow Up Care 08/22/2022 14:58:59 With:Dr. 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 [facility]11-04-2022 Evaluation + Plan note Diagnostic Tests Pending * Urine Culture 08/18/22 [facility]11-04-2022 Hospital Discharge instructions Follow Up Care 08/18/2022 03:47:49 With:Luis Carlos Jung Address: [address], [address] [address]- Business (1) When:08/21/2022 08:45:00 Comments:Appointment has already been scheduled, please keep scheduled apptCall for any problems.Call physician if symptoms worsen [facility]10-30-2022 Hospital Discharge instructions Patient Education 08/13/2022 [...] 10/31/2007 Document Revised: 10/21/2019 Document Reviewed: 11/09/2016 [employer] Patient Education 2020 [employer] 08/13/2022 19:55:11 Monitoring Overview Monitoring Overview [...] 09/21/2003 Document Revised: 06/25/2018 Document Reviewed: 04/30/2017 [facility] [facility] Patient Education 2020 [employer] Inc. Follow Up Care 08/13/2022 17:29:42 With:Luis Carlos Jung Address: [address], [address] [place] [phone]- Business (1) When:1 to 2 days Comments:Call for any problems.Return for contractions closer, longer, harderReturn for decreased movementReturn if ruptured membranes or vaginal bleeding [facility]10-13-2022 Hospital Discharge instructions Follow Up Care 07/27/2022 01:12:54 With:Dr. Jung [phone] Address:Unknown When:09/24/2022 20:30:00 Comments:Call for any problems.Return if ruptured membranes or vaginal bleedingReturn for decreased movementcontractions every 5 minutes lasting 45 seconds for an hourCall Sunday night at 7:30 PM to assure bed availability for induction [facility]10-12-2022 Hospital Discharge instructions Patient Education 07/26/2022 [...] Follow these instructions at home: Medicines Take sopw-cue-qyusrro and prescription medicines only as told by [...] as fried or sweet foods. ?Take an oynq-iqn-rupaxtu or prescription medicine for constipation. If you [...] 12/28/2009 Document Revised: 05/28/2019 Document Reviewed: 11/11/2018 [employer] Patient Education 2020 Phoneplus. Follow Up Care 07/26/2022 07:56:25 With:Luis Carlos Jung Address: [address] [facility] [place] [address] Business (1) When:08/07/2022 07:45:00 [facility]10-03-2022 Evaluation + Plan noteExtracted from: Title:ED Note Author:Hi Carmona PA-C te:07/17/22 UTI (urinary tract infection ) (N39.0: Urinary tract infection, site not specified) Orders: cephalexin, 500 mg = 1 cap(s), Oral, q12hr, X 5 day(s), # 10 cap(s), Refills(s) 0, Pharmacy: [facility], 162.5, cm, 07/17/22 9:09:00 EDT, Height/Length Dosing, 80, kg, 07/17/22 9:09:00 EDT, Weight Dosing Patient Specific Meds, Each, Misc, Once, Stop date 07/17/22 9:10:34 EDT, Physician Stop, 07/17/22 9:10:34 EDT Influenza A&B Ag Rapid COVID Antigen ([facility]) UA With Cult Reflex [facility]10-03-2022 Hospital Discharge instructions Patient Education 07/17/2022 [...] 01/26/2012 Document Revised: 01/23/2020 Document Reviewed: 09/04/2019 [employer] Patient Education 2019 Phoneplus. 07/17/2022 09:55:44 Urinary Tract Infection, Adult Urinary [...] Treatment for this condition includes: Antibiotic medicine. Nhmx-rpk-qlpnvgg medicines to treat discomfort. Drinking enough water [...] Follow these instructions at home: Medicines Take nbgu-poj-ozbfazt and prescription medicines only as told by [...] 07/11/2006 Document Revised: 09/18/2019 Document Reviewed: 04/10/2019 [employer] Patient Education 2020 Phoneplus. Follow Up Care 07/17/2022 09:04:38 With:Luis Carlos Jung Address: [address] [place], [place] [address] [address] Business (1) When:07/20/2022 09:46:49 With:THANG MILLAN Address: [address] [place] [address] Business (1) When:07/20/2022 09:46:41 Comments:Follow-up with your primary care provider in 3 to 5 days. If symptoms worsen, do not improve, or new symptoms arise please report back to emergency department for further evaluation. [facility]09-14-2022 Evaluation + Plan note Diagnostic Tests Pending * RPR with Conf Rfx 06/28/22 [facility]09-12-2022 Hospital Discharge instructions Patient Education 06/26/2022 [...] 09/21/2003 Document Revised: 06/25/2018 Document Reviewed: 04/30/2017 [employer] Patient Education 2020 [employer] 06/26/2022 21:35:59 Form - Movement Counts [...] 06/26/2022 20:41:33 With:Luis Carlos Jung [facility]: [address] [address] [place] [address] [place] [address] [facility] (1) When:07/03/2022 07:45:00 Comments:Call for any problems.Please call if you need to rescheduleReturn for decreased movement [facility]09-05-2022 Hospital Discharge instructions Follow Up Care 06/18/2022 23:33:38 With:Luis Carlos Jung Address: [address], [facility] [address] [place] [address]- Business (1) When:5 to 7 days Comments:Appointment has already been scheduledCall for any problems.Call for fever > 100.5 FCall for severe abdominal painCall physician for heavy vaginal bleedingPlease call if you need to rescheduleReturn for contractions closer, longer, harderReturn for decreased movementReturn if ruptured membranes or vaginal bleeding [facility]07-18-2022 Hospital Discharge instructions Follow Up Care 05/01/2022 17:08:54 With:Luis Carlos Jung Address: [address], [facility] [address] [place] [address]- Business (1) When:05/09/2022 Comments:Return if ruptured membranes or vaginal bleedingReturn for contractions closer, longer, harderCall physician if symptoms worsenCall physician for heavy vaginal bleedingCall for severe abdominal painCall for fever > 100.5 FCall for any problems. drink more fluids including gatorade, take milk of magnesia twice /day until yo u have bowel movements, benefiber daily [facility]06-19-2022 Evaluation + Plan note Diagnostic Tests Pending * Urine Culture 04/02/22 [facility]06-19-2022 Hospital Discharge instructions Patient Education 04/02/2022 10:22:48 Second Trimester of , Exsk-di-Svmy Second Trimester of The second trimester is [...] Follow these instructions at home: Medicines Take eqdu-lrb-gxcualz and prescription medicines only as told by [...] 12/26/2010 Document Revised: 01/23/2020 Document Reviewed: 11/06/2017 [employer] Patient Education 2020 Phoneplus. 04/02/2022 10:22:48 Vaginal Bleeding During , Second [...] says that this is safe. Medicines Take hdqz-cua-ydakvwa and prescription medicines only as told by [...] 07/11/2006 Document Revised: 01/20/2020 Document Reviewed: 01/03/2018 [employer] Patient Education 2019 Phoneplus. Follow Up Care 04/02/2022 06:00:26 With:Dr. Jung [phone] Address:Unknown When:2 to 3 days Comments:Call for any problems.Call physician if symptoms worsen [facility]06-09-2022 Hospital Discharge instructions Patient Education 03/23/2022 20:39:21 Second Trimester of , Bulw-fv-Aokg Second Trimester of The second trimester is [...] Follow these instructions at home: Medicines Take tont-dff-ehxnasc and prescription medicines only as told by [...] 12/26/2010 Document Revised: 01/23/2020 Document Reviewed: 11/06/2017 [employer] Patient Education 2020 Phoneplus. 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 [...] grounds. You are around people who have Lithuanian measles, fifth disease, or chickenpox. You have [...] 03/19/2009 Document Revised: 01/22/2020 Document Reviewed: 10/09/2017 [employer] Patient Education 2020 Phoneplus. 03/23/2022 20:39:21 Abdominal Pain During , Zmoh-fn-Ugvx Abdominal Pain During Belly (abdominal) pain is [...] keep your pee (urine) pale yellow. Take dtvz-uvm-deacdsl and prescription medicines only as told by [...] 09/19/2010 Document Revised: 01/19/2020 Document Reviewed: 01/03/2018 [facility] [facility] Patient Education 2020 [email or web address] Follow Up Care 03/23/2022 19:35:57 With:Luis Carlos Jung Address: [address], [place] [phone] [facility] (1) When:03/27/2022 10:00:00 Comments:Call for any problems. Call [facility] first, ask to speak directly to Dr. Jung before heading to hospital unless an emergency. Call for severe abdominal pain or worsening pain.Return if vaginal bleedingor ruptured membranes.Wear belly band as much as possible, especially as your belly grows in . [facility]05-04-2022 Evaluation + Plan note Diagnostic Tests Pending * RPR with Conf Rfx 02/15/22 * HIV Screen 4th Generation wRfx 02/15/22 * Rubella Antibody IgG 02/15/22 * Hepatitis B Surface Antigen 02/15/22 * Urine Culture 02/15/22 [facility]06-18-2021 NoteHNO ID: [id number] Author: Bert Negrete, DO Service: ? Author Type: Fellow Type: Progress Notes Filed: 04/01/2021 9:15 AM Note Text: [facility] [address] [address] Martha Webb (DrHerminia) [address] [facility] [address] PCP: Thang Millan NP Accompanied by: Mother [...] bed and continue this dose - rizatriptan (MAXALT-ACCOUNTS RECEIVABLE COORDINATOR) 10 mg disintegrating tablet Take 1 tablet [...] Transformed Score (ran (more content not included)... [facility]06-10-2021 NoteHNO ID: [id number] Author: RT Oliva(R) Service: Nuclear Medicine Author Type: Leather Sprayer Type: Progress Notes Filed: 03/24/2021 9:39 AM [...] found using this link: [email or web address]%[email or web address] SIGNATURE: NICHOLAS BaptisteR) PATIENT NAME: Susan Bro DATE: March 24, 2021 TIME: 9:38 AM PAGER/CONTACT #:[facility]05-27-2021 NoteHNO ID: [id number] Author: Martha Webb MD Service: ? Author Type: Physician Type: Progress Notes Filed: 03/10/2021 12:03 PM Note Text: This note was created using IHS Holdingriter. 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 When you make an appointment with [facility], it's the start of a long-lasting partnership that's committed to your health. We provide the very best prevention, wellness and illness care, and give you access to the advanced medical services and expert treatment available at [facility]. Please note that the provider listed below is accepting patients in your area. Cecil: [address] [place] [address] MD Debby Lala MD Christina Spring [facility] For the most up-to-date information on a care provider in your community, use the Find a Doctor tool on [employer] [facility] * Attachments The following attachments cannot be sent through Care Everywhere. * Vertigo (Slovak) * Arik Maneuver: Vertigo: Exercises (Slovak) documented in this encounter* Instructions* Bakari Valente [...] be sent through Care Everywhere. * Bruises (Slovak) * Contusion (Slovak) documented in this encounter Assessments Diagnosis Vertigo- Primary Dizziness and giddiness Diagnosis Contusion of right knee, initial encounter Contusion of multiple sites of right shoulder and upper arm, initial encounter Additional Source Comments INFORMATION SOURCE (unrecogn ized section and content) DATE CREATED AUTHOR 04/09/2018 [facility] DATE CREATED AUTHOR AUTHOR'S ORGANIZ ATION 08/10/2020 [facility] DATE CREATED AUTHOR AUTHOR'S ORGANIZ ATION 09/07/2020 [facility] DATE CREATED AUTHOR AUTHOR'S ORGANIZ ATION 10/20/2020 [facility] DATE CREATED AUTHOR AUTHOR'S ORGANIZ ATION 03/18/2021 [facility] DATE CREATED AUTHOR AUTHOR'S ORGANIZ ATION 11/15/2021 [facility] DATE CREATED AUTHOR AUTHOR'S ORGANIZ ATION 08/25/2023 [facility] DATE CREATED AUTHOR AUTHOR'S ORGANIZ ATION 11/07/2023 [facility] EPIC Reason for Visit (unrecogniz ed section and content) Reason Comments Dizziness Reason Comments Knee Pain right knee pain, 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 denies hitting head or any LOC Shoulder Pain rt shoulder, fell ov er dust guzman onto her right side. Susan Griffiths PA-C - 10/14/2020 10:44 AM Amena Cantrell RN - 10/14/2020 10:32 AM EST ED Notes (unrecognized secti on and content) [facility] ED Note: NAME: Susan Bro 24 y.o. CSN: [id number] PCP: Physician No History: Chief Complaint: Dizziness [...] file Gets together: Not on file Attends orthodoxy service: Not on file Active member of [...] does have reproducible vertigo with position changes. Pkmqhv-gx-dsqk maneuvers are intact without dysmetria. There is negative Romberg sign. There was no ataxia on ambulation. Psychiatric: Mood and Affect: Mood normal. Behavior: Behavior normal. Thought Content: Thought content normal. Laboratory & Radiological Imaging (if done): Labs Reviewed URINALYSIS - Abnormal; Notable for the following components: Result Value Clarity, Urine Cloudy (*) Specific [place] 1.028 (*) pH, Urine 8.0 (*) Protein, [...] at the following links: For Healthcare Providers: https://www.fda.gov/media/288005/download For Patients: https://www.fda.gov/media/044758/download HCG URINE, QUALITATIVE - Normal CBC AND DIFFERENTIAL Narrative: The following orders were created for panel order CBC w/ Diff. Procedure Abnormality Status --------- ------ CBC Auto Differential[[id number]] Abnormal Final result Please view results for these tests on the individual orders. HCG URINE, QUALITATIVE URINALYSIS CT Head Or Brain Without Contrast Final Result 1. No acute intracranial hemorrhage, focal edema or mass effect. Workstation ID: [id number] EKG: Normal sinus rhythm with sinus arrhythmia RATE: 74 AXIS: Normal axis INTERVALS: AL interval of 178 ms, QRS duration of [...] Antivert. She is referred to follow-up with [facility] or [facility] that she does not currently have a [...] needed for dizziness . Susan Griffiths Physicians Histopath Tech [facility] Emergency Department Susan Griffiths PA-C 10/14/20 1203 Special isolation precautions are in place with signage outside this patient's room. This health careers instructor performs hand hygiene and enters the patient [...] or prosecute any alcohol or drug abuse patient.[facility] Care Team (unrecognized sect ion and content) Personnel Name: THANG MILLAN CNP Address: [address] [place], [place] [address] Personnel Name: THANG MILLAN CNP Address: [address] [place] [address] [place] Personnel Name: THANG MILLAN CNP Address: [address] [place] [address] [place] Personnel Name: THANG MILLAN CNP Address: [address] [place] [address] [place] Personnel Name: THANG MILLAN CNP Address: [address] [place] [phone] [place] Personnel Name: THANG MILLAN CNP Address: [address] [place] [address] [place] Personnel Name: THANG MILLAN CNP Address: [address] [place] [address]- [place] Personnel Name: THANG MILLAN CNP Address: [address] [place] [address]- [place] Personnel Name: THANG MILLAN CNP Address: Address: [address] [place] [address] [place] Personnel Name: THANG MILLAN CNP Address: Address: [address] [place] [phone] [place] Personnel Name: TAHNG MILLAN CNP Address: Address: [address] [place] [address] [place] Personnel Name: THANG MILLAN CNP Address: Address: [address] [place] [address] [place] Personnel Name: THANG MILLAN CNP Address: Address: [address] [place] [address] [place] Personnel Name: THANG MILLAN CNP Address: Address: [address] [place] [address] [place] Personnel Name: THANG MILLAN CNP Address: Address: [address] [place] [address]- [place] Personnel Name: THANG MILLAN CNP Address: Address: [address] [place] [address] [place] Personnel Name: THANG MILLAN CNP Address: Address: [address] [place] [id number]- [place] Personnel Name: THANG MILLAN CNP Address: Address: [address] [place] [id number] Personnel Name: THANG MILLAN CNP Address: Address: [address] [place] [id number] Personnel Name: THANG MILLAN CNP Address: Address: [address] [place] [address]- Personnel Name: THANG MILLAN CNP Address: Address: [address] [place] [id number] Personnel Name: THANG MILLAN CNP Address: Address: [address] [place] [id number] Personnel Name: THANG MILLAN CNP Address: Address: [address] [place] [id number]- Personnel Name: THANG MILLAN CNP Address: Address: [address] [place] [id number]- Personnel Name: THANG MILLAN CNP Address: Address: [address] [place] [id number] Personnel Name: THANG MILLAN CNP Address: Address: [address] [place] [id number] Personnel Name: Luis Carlos Jung MD Address: Address: [facility] [address] Personnel Name: Luis Carlos Jung MD Address: Address: [facility] [address] Personnel Name: Luis Carlos Jung MD Address: Address: [facility] [address] Personnel Name: Luis Carlos Jung MD Address: Address: [facility] [address] Personnel Name: Luis Carlos Jung MD Address: Address: [facility] [address] Personnel Name: Rashaun PURVIS DO Address: Address: [address] , [facility] [address] Lopez[address] Personnel Name: NONE, XXXX Address: Address: [facility] Personnel Name: LLC, GENERIC Personnel [...] BE BASED ON THE PRIMARY CLINICAL RECORDS. [facility]. provides no warranty or guarantee of the accuracy or completeness of information in this document.
--- NOTE | 2023-11-20 09:32 | US_ITS ---
[address] [address] Patient Name: DEANDRA MOCTEZUMA MRN: [id number] date: 1995 Sex: F Assigned Patient Location: [facility] Current Patient Location: [facility] Accession/Order Number: [id number] Exam Date: 11/20/2023 09:45 Report Date: 11/20/2023 10:22 At the request of: JOSSE PURVIS Procedure: US OB BPP w non-stress EXAMINATION: US OB BPP w non-stress HISTORY: EXCESSIVE GROWTH O36.63X0 COMPARISON: Ultrasound OB biophysical 11/13/2023 TECHNIQUE: Ultrasound biophysical profile was performed in the radiology department. BREATHING MOVEMENTS: 2.0 GROSS BODY MOVEMENTS: 2.0 TONE: 2.0 QUALITATIVE AMNIOTIC FLUID VOLUME: 2.0 PRESENTATION: CEPHALIC HEART RATE: 133.0 bpm bpm. AMNIOTIC FLUID VOLUME: 12.4 cm GESTATIONAL AGE: 35 weeks 2 days CONCLUSION: Total biophysical profile score 8.0. Electronically authenticated by: SUSHILA HERRERA Date: 11/20/2023 10:22
[2023-11-20 10:02] VITALS: RESP 16
[2023-11-20 10:03] VITALS: BP 115/77; PULSE 68
== END 2023-11-20 10:30 | disposition home or self-care (01) ==
LOC: US 07:16 → FBC 09:29
PROVIDERS: Visit Provider Obstetrics & Gynecology
DX: O36.63X1 Maternal care for excessive fetal growth, third trimester, fetus 1 (principal); Z3A.35 35 weeks gestation of pregnancy; O26.843 Uterine size-date discrepancy, third trimester
CPT/HCPCS: 76818

== ENCOUNTER 2023-11-21 08:26 | Outpatient (OUT) | payer OTHER, SELFPAY ==
--- NOTE | 2023-11-21 08:29 | US_ITS ---
[address] [address] Patient Name: DEANDRA MOCTEZUMA MRN: [id number] date: 1995 Sex: F Assigned Patient Location: [facility] Current Patient Location: [facility] Accession/Order Number: [id number] Exam Date: 11/21/2023 08:29 Report Date: 11/21/2023 09:12 At the request of: JOSSE PURVIS Procedure: US OB growth EXAMINATION: US OB growth HISTORY: LGA COMPARISON: No relevant comparison available. FINDINGS: Heart Rate: 130.0 bpm Amniotic Fluid Volume: 13.6 cm Number: 1.0 Position: CEPHALIC Maximum Vertical Pocket: 3.4 cm cm 3.8 cm cm 3.5 cm cm 2.9 cm cm BIOMETRY: BPD: 8.5 cm cm; 34 weeks 2 days; 26% HC: 31.4 cmcm; 35 weeks 1 days , 17% AC: 30.8 cm cm; 34 weeks 5 days, 43% FL: 6.3 cm cm; 32 weeks 3 days; < 3.0 % % EFW: 2358.4 grams, 5 lbs. 3 oz., 19% FL/AC: 20.3 FL/BPD: 73.7 HC/AC: 1.0 GESTATIONAL AGE: Age by EDC: 35 weeks 2 days DARON by EDC: 12/24/2023 Age by US: 34 weeks 1 day DARON by US: 01/01/2024 US/US OB growth IMPRESSION: Femur length less than the 3rd percentile, otherwise normal interval growth Electronically authenticated by: MERNA SILVA Date: 11/21/2023 09:12
--- OUTSIDE RECORDS SUMMARY | 2023-11-21 08:31 | XMS_ITS | CCD ---
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, 162.6, cm, 05/21/23 20:50:00 EDT, Height/Length Dosing, 75.3, kg, 05/21/23 20:50:00 EDT, Weight Dosing Start Date: 05/21/23 Stop Date: 05/26/23 Status: Ordered Start: 08-18-2022 End: 08-25-2022 take 1 capsule by mouth four times daily Keflex 500 mg Cap 500 mg = 1 cap(s), Oral, QID, X 7 day(s), # 28 cap(s), Refills(s) 0, Pharmacy: [facility] 1985, 162.5, cm, 08/18/22 4:15:00 EDT, Height/Length Dosing, 80, kg, 08/18/22 4:15:00 EDT, Weight Dosing Start Date: 08/18/22 Stop Date: 08/25/22 Status: Ordered Start: 07-17-2022 End: 07-22-2022 take 1 capsule by mouth every twelve hours Keflex 500 mg Cap 500 mg = 1 cap(s), Oral, q12hr, X 5 day(s), # 10 cap(s), Refills(s) 0, Pharmacy: [facility] 1986, 162.5, cm, 07/17/22 9:09:00 EDT, Height/Length Dosing, 80, kg, 07/17/22 9:09:00 EDT, Weight Dosing Start Date: 07/17/22 Stop Date: 07/22/22 Status: Ordered Start: 04-02-2022 End: 04-09-2022 take 1 capsule by mouth four times daily Keflex 500 mg Cap 500 mg = 1 cap(s), Oral, QID, X 7 day(s), # 28 cap(s), Refills(s) 0, Pharmacy: [facility], 160, cm, 04/02/22 [...] Daily, # 14 tab(s), Refills(s) 0, Pharmacy: [facility], 162.6, cm, 05/21/23 20:50:00 EDT, Height/Length Dosing, 75.3, kg, 05/21/23 20:50:00 EDT, Weight Dosing Start Date: 05/21/23 Status: Ordered ibuprofen 600 mg oral tablet (11 sources) Nonsteroidal Anti-inflammatory Drug Start: 09-27-2022 take 1 tablet by mouth every six hours ibuprofen 600 mg Tab 600 mg = 1 tab(s), Oral, q6hr, # 15 tab(s), Refills(s) 0, Pharmacy: [facility] 1986, 162.5, cm, 09/24/22 21:51:00 [...] dizziness, # 15 tab(s), Refills(s) 0, Pharmacy: [id number], 163, cm, 11/30/21 7:18:00 EST, Height/Length [...] Nausea/Vomiting, # 12 tab(s), Refills(s) 0, Pharmacy: [facility], 163, cm, 09/05/22 [...] day(s), # 6 tab(s), Refills(s) 0, Pharmacy: [facility], 163, cm, 06/28/23 [...] q8hr, # 12 tab(s), Refills(s) 0, Pharmacy: [facility], 162.6, cm, 05/21/23 [...] AM) Normal Negative [facility] UA Auto SS [place].plasma/[place] .RBC (Bld) [Mass ratio] 0-3 /HPF Normal [...] FT UA Auto SS Urobilinogen Qn (U) 0.3805739 {Rola'U}/dL Normal 0.0 - 1.0 EU/dL FT UA Auto SS WBC Auto Ql (U) 1+ *ABN* (11/04/23 8:05 AM) Invalid Interpretation Code Negative FT UA Auto SS WBC LM.HPF (Urine sed) [#/Area] 6-15 /HPF Invalid Interpretation Code 0-5/HPF FT UA Auto SS T3 Totalon 08-24-2023 T3 [Mass/Vol] 146 ng/dL Invalid Interpretation Code 71-180 [facility] Comment on above: Result Comment: Perf ormed at: [facility] [id number] [place], [place] [id number] PhD [place] Performed By: #### 2 644968, 04658164, 1342153, 27945679, 8878347, 9340491, 25083674 ####[facility] [address] [place] [address] Auto Diffon 08-23-2023 Basophils/100 WBC (Bld) 0.9 % Normal 0.0-2.0 [facility] Comment on above: Order Comment: Order Added by Discern Expert. Performed By: #### 2 586474, 31277412, 1607760, 96550046, 5886925, 4879142, 14495496 ####[facility] [address] [place] [address] Basophils/Leukocytes Auto (Bld) [Pure # fraction] 0.1 E9/L Normal 0.0-0.2 [facility] Comment on above: Order Comment: Order Added by Discern Expert. Performed By: #### 2 448989, 55809083, 4096507, 63408109, 3175093, 6702961, 20636705 ####[facility] [address] [place] [address] Eosinophils/100 WBC (Bld) 1.3 % Normal 0.0-8.0 [facility] Comment on above: Order Comment: Order Added by Discern Expert. Performed By: #### 2 940661, 26370561, 3896877, 41105424, 1922703, 8649334, 22683912 ####[address] [address] Eosinophils/Leukocytes Auto (Bld) [Pure # fraction] 0.1 E9/L Normal 0.0-0.5 [facility] Comment on above: Order Comment: Order Added by Discern Expert. Performed By: #### 2 516215, 83647756, 2086464, 92712589, 1939550, 6173996, 13904284 ####[address] [address] Lymphocytes/100 WBC (Bld) 17.7 % Normal 14.0-50.0 [facility] Comment on above: Order Comment: Order Added by Discern Expert. Performed By: #### 2 613795, 98449943, 8453029, 43472426, 9890547, 5367489, 21855238 ####[address] [place] [address] Lymphocytes/Leukocytes Auto (Bld) [Pure # fraction] 1.4 E9/L Normal 1.0-4.0 [facility] Comment on above: Order Comment: Order Added by Discern Expert. Performed By: #### 2 608156, 84887866, 6709364, 44470335, 5731423, 3563616, 71255172 ####[address] [place] [address] Monocytes/100 WBC (Bld) 5.1 % Normal 4.0-14.0 [facility] Comment on above: Order Comment: Order Added by Discern Expert. Performed By: #### 2 103777, 12621945, 3351490, 15810962, 8493746, 6102398, 30176935 ####[address] [address] Monocytes/Leukocytes Auto (Bld) [Pure # fraction] 0.4 E9/L Normal 0.2-1.0 [facility] Comment on above: Order Comment: Order Added by Discern Expert. Performed By: #### 2 400121, 24106881, 9702062, 48122799, 8776393, 0081277, 11419931 ####[address] [address] Neutrophils/100 WBC (Bld) 75.0 % Normal 36.0-75.0 [facility] Comment on above: Order Comment: Order Added by Discern Expert. Performed By: #### 2 371048, 48364640, 4135441, 30303140, 6202048, 4215270, 72483962 ####[address] [address] Neutrophils/Leukocytes Auto (Bld) [Pure # fraction] 5.8 E9/L Normal 2.0-7.5 [facility] Comment on above: Order Comment: Order Added by Discern Expert. Performed By: #### 2 956863, 78634418, 5289083, 46370551, 6218002, 4370893, 27508117 ####[address] [place] [address] CBC w/ Auto Diffon 3 Erythrocyte distribution width (RBC) [Ratio] 14.5 % High 10.9-14.2 [facility] Comment on above: Performed By: #### 2 279486, 98659896, 7937773, 18332292, 6157203, 2264772, 77722268 ####[facility] [address] [place] [address] Hematocrit (Bld) [Volume fraction] 36.4 % Normal 34.0-46.0 [facility] Comment on above: Performed By: #### 2 449086, 13261515, 4743506, 89761626, 6546477, 0720119, 16915467 ####[facility] [address] [place] [address]57 Hemoglobin (Bld) [Mass/Vol] 12.1 g/dL Normal 12.0-16.0 [facility] Comment on above: Performed By: #### 2 472325, 61917568, 9809114, 77986395, 9936970, 2801074, 48247056 ####[address] [place] [address] MCH (RBC) [Entitic mass] 30.2 pg Normal 27.0-34.0 [facility] Comment on above: Performed By: #### 2 213755, 64893185, 9705560, 16887131, 4959001, 7420831, 60141590 ####[facility] [address] [place], [place] [address] MCHC (RBC) [Mass/Vol] 33.3 g/dL Normal 31.4-36.0 [facility] Comment on above: Performed By: #### 2 342804, 71972060, 3366301, 79546413, 7678025, 1607696, 64660991 ####[facility] [address] [place] [address] MCV (RBC) [Entitic vol] 90.8 fL Normal 80.0-100.0 [facility] Comment on above: Performed By: #### 2 965869, 85854718, 8313397, 04126109, 7156979, 2748070, 88855714 ####[facility] [address] [place] [address] Platelet mean volume (Bld) [Entitic vol] 9.7 fL Normal 6.4-10.8 [facility] Comment on above: Performed By: #### 2 040676, 98012058, 9585982, 67655349, 5522687, 9312776, 14216188 ####[facility] [address] [place] [address] Platelets (Bld) [#/Vol] 270.0 E9/L Normal 150.0-500.0 [facility] Comment on above: Performed By: #### 2 023243, 64947274, 5773822, 65084695, 9153292, 7923960, 01573502 ####[facility] [address] [place] [address] RBC (Bld) [#/Vol] 4.0 E12/L Low 4.3-5.9 [facility] Comment on above: Performed By: #### 2 086602, 09877383, 6662640, 27175454, 0872333, 1821405, 37962731 ####[facility] [address] [place] [address] WBC corrected for nucl RBC Auto (Bld) [#/Vol] 7.7 E9/L Normal 4.0-11.0 [facility] Comment on above: Performed By: #### 2 100166, 26991530, 5020196, 51090837, 5676977, 7404451, 47105867 ####[facility] [address] [place] [address] CHEMISTRYOrdered By: SYSTEM SYSTEM on 08-23-2023 Albumin [...] 125 mL/min/1.73 m2 Normal >=59mL/min/ 1.73 m2 [facility] Chem S Comment [...] 08-23-2023 Albumin [Mass/Vol] 2.8 g/dL Low 3.3-5.0 [facility] Comment on above: Performed By: #### 2 217726, 35854878, 7615946, 97474498, 3733146, 9453141, 07374216 ####[facility] [address] [place] [address] Albumin/Globulin (S) [Mass conc ratio] 0.7 Low 1.1-2.2 [facility] Comment on above: Performed By: #### 2 585702, 84151072, 2400377, 87896113, 7768734, 9910902, 94043410 ####[facility] [address] [place] [address] ALP [Catalytic activity/Vol] 49 Int._Unit/L Normal 21-98 [facility] Comment on above: Performed By: #### 2 005233, 82590164, 1987750, 12519866, 7434004, 0680894, 83324665 ####[facility] [address] [place] [address] ALT No additional P-5'-P [Catalytic activity/Vol] 15 Int._Unit/L Normal 6-46 [facility] Comment on above: Performed By: #### 2 379402, 45299796, 9447443, 59921452, 0997310, 9397985, 76098351 ####[facility] [address] [place] [address] Anion gap [Moles/Vol] 12 mmol/L Normal 6-16 [facility] Comment on above: Performed By: #### 2 115168, 63208298, 4240985, 50356987, 1498941, 3199160, 70211473 ####[facility] [address] [place] [address] AST [Catalytic activity/Vol] 17 Int._Unit/L Normal 5-43 [facility] Comment on above: Performed By: #### 2 868942, 48343162, 8589963, 27672738, 4977782, 0309035, 83530788 ####[address] [place] [address] Bilirubin [Mass/Vol] 0.5 mg/dL Normal 0.0-1.1 [facility] Comment on above: Performed By: #### 2 454789, 50254497, 1237541, 83746289, 8289375, 3366576, 95710523 ####[address] [place] [address] Calcium [Mass/Vol] 8.8 mg/dL Low 8.9-11.1 [facility] Comment on above: Performed By: #### 2 353211, 54370302, 8232755, 57463076, 6135726, 6018172, 67795743 ####[facility] [address] [place] [address] Chloride [Moles/Vol] 108 mmol/L Normal 101-111 [facility] Comment on above: Performed By: #### 2 108436, 86391039, 7771119, 20142562, 3694279, 9388116, 68604474 ####[facility] [address] [place] [address] CO2 [Moles/Vol] 22 mmol/L Normal 21-31 [facility] Comment on above: Performed By: #### 2 545394, 50222579, 0762360, 93247308, 9117179, 7399570, 05699913 ####[facility] [address] [place] [address] Creatinine [Mass/Vol] 0.6 mg/dL Normal 0.5-1.3 [facility] Comment on above: Performed By: #### 2 467205, 89830870, 2453253, 06744521, 0849035, 0145403, 75096028 ####[facility] [address] [place] [address] Globulin (S) [Mass/Vol] 3.8 g/dL Normal 1.4-4.0 [facility] Comment on above: Performed By: #### 2 448011, 36023077, 5632591, 64976688, 3728372, 7368453, 18066139 ####[facility] [address] [place] [address] Glucose [Mass/Vol] 88 mg/dL Normal 55-199 [facility] Comment on above: Result Comment: If t his glucose result represents a fasting glucose, interpretation should refer to the following reference range: 55-99 mg/dL Performed By: #### 2 943036, 39154182, 2602074, 06326754, 5039371, 8647039, 26407150 ####[facility] [address] [place] [address] Potassium [Moles/Vol] 3.5 mmol/L Normal 3.5-5.3 [facility] Comment on above: Performed By: #### 2 422245, 86411973, 9515774, 48967570, 0477808, 1067423, 39192118 ####[facility] [address] [place] [address] Protein [Mass/Vol] 6.6 g/dL Normal 6.0-7.8 [facility] Comment on above: Performed By: #### 2 664611, 15534925, 6010838, 29301065, 8011772, 3625971, 75784261 ####[facility] [address] [place] [address] Sodium [Moles/Vol] 138 mmol/L Normal 135-145 [facility] Comment on above: Performed By: #### 2 972129, 34522295, 8184855, 70300146, 5537387, 7173639, 50750318 ####[facility] [address] [place] [address] Urea nitrogen [Mass/Vol] 7 mg/dL Normal 5-21 [facility] Comment on above: Performed By: #### 2 361126, 66377644, 3388191, 02437300, 7905020, 9795641, 96280861 ####[facility] [address] [place] [address] Urea nitrogen/Creatinine [Mass ratio] 12 No Units Normal 10-20 [facility] Comment on above: Performed By: #### 2 157884, 43050336, 3646002, 71280428, 2771637, 3374030, 28405837 ####[facility] [address] [place] [address] HEMATOLOGYOrdered By: SYSTEM SYSTEM on 08-23-2023 Basophils/100 [...] 08-23-2023 Cholesterol [Mass/Vol] 238 mg/dL High 120-200 [facility] Comment on above: Performed By: #### 2 261040, 44779637, 0933877, 34775249, 3364086, 2214652, 59099341 ####[facility] [address] [place] [address] Cholesterol in HDL [Mass/Vol] 64 mg/dL Invalid Interpretation Code [facility] Comment on above: Result Comment: HDL > or equal to 60 mg/dL: Low cardiovascular riskHDL < 40 mg/dL : High cardiovascular risk Performed By: #### 2 617026, 88909804, 4936843, 65178476, 1564856, 8011916, 55233751 ####[facility] [address] [place] [address] Cholesterol in LDL [Mass/Vol] 146 mg/dL High <=129 [facility] Comment on above: Performed By: #### 2 736685, 80414444, 7551228, 66471181, 0804103, 5261132, 76568073 ####[facility] [address] [place] [address] Cholesterol in VLDL [Mass/Vol] 33 mg/dL Normal 7-40 [facility] Comment on above: Performed By: #### 2 034157, 61652524, 2643142, 83202068, 0173771, 0742781, 49326766 ####[facility] [address] [place] [address] Triglyceride [Mass/Vol] 164 mg/dL High <=149 [facility] Comment on above: Performed By: #### 2 429734, 79440920, 9027974, 81640079, 7928067, 9202252, 70396140 ####[facility] [address] [place] [address] Physician Orderon 08-23-2023 Physician Order [id number]#1.00TIFF Normal [facility] T4 & TSHon 08-23-2023 T4 [Mass/Vol] 11.8 microgram/dL High 4.6-9.1 [facility] Comment on above: Performed By: #### 2 352421, 86582427, 0051382, 43837403, 2714996, 8063314, 70967076 ####[facility] [address] [place] [address] TSH Qn 3.61 m[IU]/L Normal 0.34-5.60 [facility] Comment on above: Performed By: #### 2 476927, 13762205, 8201692, 76095403, 3855575, 2212669, 21931103 ####[facility] [address] [place] [address] eGFRon 08-23-2023 GFR/1.73 sq M.predicted among non-blacks MDRD (S/P/Bld) [Vol rate/Area] 125 mL/min/1.73 m2 Normal >=59 [facility] Comment on above: Order Comment: Order added by Discern Expert. Result Comment: Management Tech lucy kidney disease could be indicated at eGFR's of less than 60 mL/min/1.73m2. Kidney failure is indicated at less than 15 mL/min/1.73m2. Performed By: #### 2 996473, 79305566, 5957068, 85978911, 6974238, 9323592, 87713048 ####[facility] [address] [place] [address] Nursing Assessmenton 023 Nursing Assessment [id number]#1.00TIFF Normal [facility] Consent for Treatmenton Consent for Treatment [id number]#1.00TIFF Normal [facility] Discharge Instructionson Discharge Instructions [id number]#1.00TIFF Normal [facility] Inpatient Clinical Summaryon 08-18-2023 Inpatient Clinical Summary Normal [facility] Inpatient Patient Summaryon 08-18-2023 Inpatient Patient Summary Normal [facility] Insurance Correspondenceon 1 10-18-2022 Insurance Correspondence [id number]#1.00TIFF Normal [facility] Vaccinationson 08-18-2023 Vaccinations [id number]#1.00TIFF Normal [facility] C Urineon 07-27-2023 Bacteria identified Cx Nom (U) Normal [facility] Comment on above: Performed By: #### 2 331024, 82463810 ####[facility] [address] [place] [address] ABO/Rhon 07-25-2023 ABO/Rh Positive Invalid Interpretation Code [facility] Comment on above: Performed By: #### 2 640009 ####[facility] [address] [place] [address] Auto Diffon 07-25-2023 Basophils/100 WBC (Bld) 1.1 % Normal 0.0-2.0 [facility] Comment on above: Order Comment: Order Added by Discern Expert. Performed By: #### 1 3235807, 1285664, 6255491, 4150423, 9739385, 5120013 ####[facility] [address] [place] [address] Basophils/Leukocytes Auto (Bld) [Pure # fraction] 0.1 E9/L Normal 0.0-0.2 [facility] Comment on above: Order Comment: Order Added by Discern Expert. Performed By: #### 1 7997249, 0926917, 1987048, 5651098, 4911090, 9641368 ####[facility] [address] [place] [address] Eosinophils/100 WBC (Bld) 1.2 % Normal 0.0-8.0 [facility] Comment on above: Order Comment: Order Added by Discern Expert. Performed By: #### 1 9104647, 8996953, 8755410, 8660779, 3671992, 1338293 ####[facility] [address] [place] [address] Eosinophils/Leukocytes Auto (Bld) [Pure # fraction] 0.1 E9/L Normal 0.0-0.5 [facility] Comment on above: Order Comment: Order Added by Gisselle Expert. Performed By: #### 1 8718601, 4606335, 8512735, 3412321, 4934776, 6564590 ####[facility] [address] [place] [address] Lymphocytes/100 WBC (Bld) 23.7 % Normal 14.0-50.0 [facility] Comment on above: Order Comment: Order Added by Discern Expert. Performed By: #### 1 7587354, 3762881, 2879229, 0335161, 1196263, 1056114 ####[address] [place] [address] Lymphocytes/Leukocytes Auto (Bld) [Pure # fraction] 1.4 E9/L Normal 1.0-4.0 [facility] Comment on above: Order Comment: Order Added by Gisselle Expert. Performed By: #### 1 8048738, 3090802, 4949745, 4696745, 5860886, 4528989 ####[address] [place] [address] Monocytes/100 WBC (Bld) 6.7 % Normal 4.0-14.0 [facility] Comment on above: Order Comment: Order Added by Gisselle Expert. Performed By: #### 1 3885166, 7558554, 9819883, 2822136, 9835110, 8806426 ####[address] [address] Monocytes/Leukocytes Auto (Bld) [Pure # fraction] 0.4 E9/L Normal 0.2-1.0 [facility] Comment on above: Order Comment: Order Added by Gisselle Expert. Performed By: #### 1 0526973, 7191767, 8638877, 8362759, 6851842, 5222897 ####[address] [place] [address] Neutrophils/100 WBC (Bld) 67.3 % Normal 36.0-75.0 [facility] Comment on above: Order Comment: Order Added by Discern Expert. Performed By: #### 1 4751046, 4059714, 3320260, 1670964, 3434831, 9079546 ####[facility] [address] [place] [address] Neutrophils/Leukocytes Auto (Bld) [Pure # fraction] 4.0 E9/L Normal 2.0-7.5 [facility] Comment on above: Order Comment: Order Added by Discern Expert. Performed By: #### 1 1212634, 8289626, 0194963, 6508907, 7766691, 4793463 ####[facility] [address] [place] [address] BLOOD BANKOrdered By: An Lassiter on 07-25-2023 ABO/Rh Interp Positive Invalid Interpretation Code [facility] BB Subsection BMPon 07-25-2023 Creatinine [Mass/Vol] 0.6 mg/dL Normal 0.5-1.3 [facility] Comment on above: Performed By: #### 1 4185428, 1392171, 3905506, 3441283, 4825285, 2623541 ####[facility] [address] [place] [address] Urea nitrogen [Mass/Vol] 6 mg/dL Normal 5-21 [facility] Comment on above: Performed By: #### 1 0138695, 5753785, 5366444, 9682789, 4552726, 1910134 ####[facility] [address] [place] [address] Urea nitrogen/Creatinine [Mass ratio] 10 No Units Normal 10-20 [facility] Comment on above: Performed By: #### 1 4895145, 6739985, 7346728, 1514845, 5993492, 1937692 ####[facility] [address] [place] [address] Anion gap [Moles/Vol] 2 mmol/L Low 6-16 [facility] Comment on above: Performed By: #### 1 2987723, 1509858, 9102706, 9243428, 8296899, 8485847 ####[facility] [address] [place] [address] Calcium [Mass/Vol] 8.6 mg/dL Low 8.9-11.1 [facility] Comment on above: Performed By: #### 1 4439946, 5620425, 3465640, 4259535, 1014766, 5470744 ####[facility] [address] [place] [address] Chloride [Moles/Vol] 107 mmol/L Normal 101-111 [facility] Comment on above: Performed By: #### 1 8150370, 0311375, 9587371, 7874430, 7775575, 5545083 ####[facility] [address] [place] [address] CO2 [Moles/Vol] 27 mmol/L Normal 21-31 [facility] Comment on above: Performed By: #### 1 8234579, 2206963, 8047606, 2075965, 3209179, 2559643 ####[facility] [address] [place] [address] Glucose [Mass/Vol] 73 mg/dL Normal 55-199 [facility] Comment on above: Result Comment: If t his glucose result represents a fasting glucose, interpretation should refer to the following reference range: 55-99 mg/dL Performed By: #### 1 5169619, 0360432, 1542509, 1166030, 1146039, 8693426 ####[facility] [address] [place] [address] Potassium [Moles/Vol] 3.9 mmol/L Normal 3.5-5.3 [facility] Comment on above: Performed By: #### 1 9267255, 3406028, 9815802, 7969156, 9968522, 5845023 ####[facility] [address] [place] [address] Sodium [Moles/Vol] 132 mmol/L Low 135-145 [facility] Comment on above: Performed By: #### 1 7354932, 7966810, 0020430, 0068973, 4115846, 2968169 ####[facility] [address] [place] [address] BhCG Quanton 07-25-2023 [place] [address] m[IU]/mL High 1-3 [facility] Comment on above: Result Comment: GEST ATIONAL AGE HCG RANGE (mIU/mL) NON- <1-3 0.2-1 WEEKS 5-50 1-2 WEEKS 50-500 2-3 WEEKS 100-5,000 3-4 WEEKS 500-10,000 4-5 WEEKS 1,000-50,000 5-6 WEEKS 10,000-100,000 6-8 WEEKS 15,000-200,000 8-12 WEEKS 10,000-100,000 Performed By: #### 2 122766 ####[address] [address] CBC w/ Auto Diffon Erythrocyte distribution width (RBC) [Ratio] 14.0 % Normal 10.9-14.2 [facility] Comment on above: Performed By: #### 1 8604887, 9982981, 4112585, 1467337, 1707520, 6112222 ####[address] [place] [address] Hematocrit (Bld) [Volume fraction] 37.1 % Normal 34.0-46.0 [facility] Comment on above: Performed By: #### 1 [id number], 6559636, 3063113, 6493637, 9708009, 3312085 ####[address] [place] [address] Hemoglobin (Bld) [Mass/Vol] 12.5 g/dL Normal 12.0-16.0 [facility] Comment on above: Performed By: #### 1 [id number], 5165062, 3726448, 8621404, 2704469, 2811631 ####[facility] [id number] [place] [address] MCH (RBC) [Entitic mass] 29.9 pg Normal 27.0-34.0 [facility] Comment on above: Performed By: #### 1 [id number], 1346055, 2724854, 2220561, 4562876, 8054468 ####[address] [place] [address] MCHC (RBC) [Mass/Vol] 33.8 g/dL Normal 31.4-36.0 [facility] Comment on above: Performed By: #### 1 [id number], 2916855, 4083892, 2088201, 7532550, 4909197 ####[address] [address] MCV (RBC) [Entitic vol] 88.4 fL Normal 80.0-100.0 [facility] Comment on above: Performed By: #### 1 [id number], 8254183, 2194298, 5403714, 4238563, 9728388 ####[address] [address] Platelet mean volume (Bld) [Entitic vol] 7.9 fL Normal 6.4-10.8 [facility] Comment on above: Performed By: #### 1 5617689, 5056960, 0632579, 3862976, 4765951, 1963398 ####[address] [address] Platelets (Bld) [#/Vol] 261.0 E9/L Normal 150.0-500.0 [facility] Comment on above: Performed By: #### 1 9921779, 3953604, 1052448, 8283796, 0238852, 3726524 ####[address] [address] RBC (Bld) [#/Vol] 4.2 E12/L Low 4.3-5.9 [facility] Comment on above: Performed By: #### 1 8870379, 4759534, 8177497, 8177999, 9443759, 5330164 ####[address] [address] WBC corrected for nucl RBC Auto (Bld) [#/Vol] 5.9 E9/L Normal 4.0-11.0 [facility] Comment on above: Performed By: #### 1 5518772, 8714515, 3497885, 2612572, 6054510, 1971621 ####[facility] [address] [place] [address] CHEMISTRYOrdered By: SYSTEM SYSTEM on 07-25-2023 Albumin [...] 125 mL/min/1.73 m2 Normal >=59mL/min/ 1.73 m2 [facility] Chem S Comment [...] reference range: 55-99 mg/[place] [address] m[IU]/mL High 1 - 3 mIU/mL FT [...] 132 mmol/L Low 135 - 145 mmol/L [facility] Remisol Urea nitrogen [Mass/Vol] 6 mg/dL Normal 5 - 21 mg/dL [facility] Remisol Urea nitrogen/Creatinine [Mass ratio] 10 mg/mg Normal 10 - 20 FT Remisol Consent for Treatmenton 07-15 Consent for Treatment [id number] [facility] Discharge Instructionson Discharge Instructions [id number] Normal [facility] ED Clinical Summaryon 2022 ED Clinical Summary Normal Vika onofre [facility] ED Note-Physicianon 07-25-20 ED Note-Physician Normal [facility] Comment on above: Result Comment: Elec tronically Signed By: Jorge Velarde PA-C\.br\Date and Time Signed: 07/25/23 10:02 EDT\.br\Electronically Co-Signed By: Kristian Guillermo DO\.br\Date and Time Co-Signed: 07/25/23 20:25 EDT ED Patient Education Noteon 07-25-2023 ED Patient Education Note Normal [facility] ED Patient Summaryon ED Patient Summary Normal [facility] HEMATOLOGYOrdered By: SYSTEM SYSTEM on 07-25-2023 [...] Bilirubin.indirect [Mass or moles/Vol] UTC Abnormal 0.1-0.9 [facility] Comment on above: Result Comment: Resu lt verified by Discern Rule. Performed result UTC (Unable to Calculate) was sent as an Alpha code due the inability to calculate a valid numeric value. Performed By: #### 1 6307086, 3058180, 4470625, 6127904, 7099710, 1519641 ####[facility] [address] [place] [address] Albumin [Mass/Vol] 3.1 g/dL Low 3.3-5.0 [facility] Comment on above: Performed By: #### 1 2892076, 7720200, 6448310, 6458780, 1499574, 5037920 ####[facility] [address] [place] [address] Albumin/Globulin (S) [Mass conc ratio] 0.9 Low 1.1-2.2 [facility] Comment on above: Performed By: #### 1 3877956, 3011464, 6749303, 7990754, 7011428, 8423100 ####[address] [place] [address] ALP [Catalytic activity/Vol] 35 Int._Unit/L Normal 21-98 [facility] Comment on above: Performed By: #### 1 5541526, 2653261, 2680949, 3421829, 6948152, 7658942 ####[address] [place] [address] ALT No additional P-5'-P [Catalytic activity/Vol] 10 Int._Unit/L Normal 6-46 [facility] Comment on above: Performed By: #### 1 4549924, 0134716, 8834633, 3854475, 0818467, 9599515 ####[address] [address] AST [Catalytic activity/Vol] 18 Int._Unit/L Normal 5-43 [facility] Comment on above: Performed By: #### 1 1657853, 7527353, 8073497, 6293389, 7987208, 2383678 ####[address] [place] [address] Bilirubin [Mass/Vol] 0.4 mg/dL Normal 0.0-1.1 [facility] Comment on above: Performed By: #### 1 3190656, 6364799, 7917496, 8827390, 2155651, 9556826 ####[address] [place] [address] Globulin (S) [Mass/Vol] 3.6 g/dL Normal 1.4-4.0 [facility] Comment on above: Performed By: #### 1 7910902, 6222827, 7808366, 2267005, 4747126, 1513018 ####[facility] [address] [place] [address] Protein [Mass/Vol] 6.7 g/dL Normal 6.0-7.8 [facility] Comment on above: Performed By: #### 1 0445576, 1536051, 3198493, 1024506, 3610423, 0938785 ####[facility] [address] [place] [address] Bilirubin.direct [Mass/Vol] mg/dL Normal 0.1-0.4 [facility] Comment on above: Performed By: #### 1 1042215, 7344256, 3097309, 3683217, 3266447, 7316922 ####[facility] [address] [place] [address] Lipase Levelon 07-25-2023 Lipase [Catalytic activity/Vol] 28 U/L Normal 13-58 [facility] Comment on above: Performed By: #### 1 0035378, 5458805, 6540901, 5509945, 9889944, 9250091 ####[facility] [address] [place] [address] UA With Cult Reflexon 2022 Bacteria LM Ql (Urine sed) TRACE Normal Trace [facility] Comment on above: Performed By: #### 2 361252, 52061117 ####[facility] [address] [place] [address] Bilirubin Ql (U) Negative Normal Negative [facility] Comment on above: Performed By: #### 2 313149, 86139934 ####[facility] [address] [place] [address] Clarity (U) SL CLOUDY Abnormal Clear [facility] Comment on above: Performed By: #### 2 053787, 88433897 ####[facility] [address] [place] [address] Color (U) YELLOW Normal Yellow [facility] Comment on above: Performed By: #### 2 681451, 01813672 ####[facility] [address] [address] Epithelial cells.squamous LM.HPF (Urine sed) [#/Area] 0-2 Normal 0-2 [facility] Comment on above: Performed By: #### 2 526231, 96362340 ####[facility] [address] [place] [address] Glucose Test strip (U) [Mass/Vol] Negative Normal Negative [facility] Comment on above: Performed By: #### 2 576233, 13330703 ####[address] [address] Hemoglobin Ql (U) Negative Normal Negative [facility] Comment on above: Performed By: #### 2 999071, 56971768 ####[address] [address] Ketones (U) [Mass/Vol] Negative Normal Negative [facility] Comment on above: Performed By: #### 2 699978, 78747552 ####[address] [address] [place].plasma/[place] .RBC (Bld) [Mass ratio] 0-3 Normal 0-3 [facility] Comment on above: Performed By: #### 2 586738, 87215870 ####[address] [address] Nitrite Ql (U) Negative Normal Negative [facility] Comment on above: Performed By: #### 2 042375, 80935704 ####[address] [address] pH (U) 7.5 [pH] Invalid Interpretation Code 5.0-9.0 [facility] Comment on above: Performed By: #### 2 000438, 50400757 ####[address] [place] [address] Protein (U) [Mass/Vol] Negative Normal Negative [facility] Comment on above: Performed By: #### 2 365666, 54247189 ####[facility] [address] [place] [address] Specific gravity (U) [Rel density] 1.010 Invalid Interpretation Code 1.005-1.030 [facility] Comment on above: Performed By: #### 2 756391, 23678617 ####[place] [address] Type of Urine collection method Clean Catch Normal [facility] Comment on above: Performed By: #### 2 207873, 51109723 ####[facility] [address] [place] [address] Urobilinogen Qn (U) 1.0 {Rola'U}/dL Normal 0.0-1.0 [facility] Comment on above: Performed By: #### 2 105190, 30308480 ####[place] [address] WBC Auto Ql (U) 2+ Abnormal Negative [facility] Comment on above: Performed By: #### 2 832090, 83171272 ####[facility] [address] [place] [address] WBC LM.HPF (Urine sed) [#/Area] 0-5 Normal 0-5 [facility] Comment on above: Performed By: #### 2 616185, 08083605 ####[place] [address] URINALYSISOrdered By: Emy Aiken on 07-25-2023 Bacteria [...] AM) Normal Negative [facility] UA Auto SS [place].plasma/[place] .RBC (Bld) [Mass ratio] 0-3 /HPF Normal [...] [facility] UA Auto SS Urobilinogen Qn (U) 1.5973474 {Rola'U}/dL Normal 0.0 - 1.0 EU/dL [facility] UA Auto SS WBC Auto Ql (U) 2+ *ABN* (07/25/23 8:33 AM) Invalid Interpretation Code Negative [facility] UA Auto SS WBC LM.HPF (Urine sed) [#/Area] 0-5 /HPF Normal 0-5/HPF [facility] UA Auto SS US Limitedon 07-25 US Limited Normal [facility] eGFRon 07-25-2023 GFR/1.73 sq M.predicted among non-blacks MDRD (S/P/Bld) [Vol rate/Area] 125 mL/min/1.73 m2 Normal >=59 [facility] Comment on above: Order Comment: Order added by Discern Expert. Result Comment: Management Tech lucy kidney disease could be indicated at eGFR's of less than 60 mL/min/1.73m2. Kidney failure is indicated at less than 15 mL/min/1.73m2. Performed By: #### 1 2551429, 7028858, 8789452, 5443345, 7097666, 1969757 ####[facility] [address] [place] [address] C Urineon 06-30-2023 Bacteria identified Cx Nom (U) Normal [facility] Comment on above: Performed By: #### 2 231075 ####[facility] [address] [place] [address] Family Medicine Office/Clini c Noteon 06-28-2023 Family Medicine Office/Clinic Note Normal [facility] Comment on above: Result Comment: Elec tronically Signed By: Татьяна NICHOLS, Roverto Barron\.br\Date and Time Signed: 06/28/23 11:41 EDT Patient Educationon 06-28-20 Patient Education Normal [facility] ABO/Rhon 06-14-2023 ABO/Rh Positive Invalid Interpretation Code [facility] Comment on above: Performed By: #### 2 032475 ####[facility] [address] [place] [address] Auto Diffon 06-14-2023 Basophils/100 WBC (Bld) 0.8 % Normal 0.0-2.0 [facility] Comment on above: Order Comment: Order Added by Discern Expert. Performed By: #### 2 645955, 6105107, 7872231, 0663987, 7464986, 87357431 ####[facility] [address] [place] [address] Basophils/Leukocytes Auto (Bld) [Pure # fraction] 0.0 E9/L Normal 0.0-0.2 [facility] Comment on above: Order Comment: Order Added by Discern Expert. Performed By: #### 2 361098, 1781753, 8088195, 7244574, 6658315, 34682106 ####[facility] [address] [place] [address] Eosinophils/100 WBC (Bld) 1.9 % Normal 0.0-8.0 [facility] Comment on above: Order Comment: Order Added by Discern Expert. Performed By: #### 2 578876, 1694964, 9332103, 6605984, 6354198, 75202809 ####[facility] [address] [place] [address] Eosinophils/Leukocytes Auto (Bld) [Pure # fraction] 0.1 E9/L Normal 0.0-0.5 [facility] Comment on above: Order Comment: Order Added by Discern Expert. Performed By: #### 2 192410, 1105699, 3932046, 9934456, 0045014, 64407257 ####[address] [place] [address] Lymphocytes/100 WBC (Bld) 24.5 % Normal 14.0-50.0 [facility] Comment on above: Order Comment: Order Added by Discern Expert. Performed By: #### 2 708442, 2865921, 1121504, 6877800, 0232852, 25257899 ####[address] [address] Lymphocytes/Leukocytes Auto (Bld) [Pure # fraction] 1.3 E9/L Normal 1.0-4.0 [facility] Comment on above: Order Comment: Order Added by Discern Expert. Performed By: #### 2 201783, 2795671, 8051521, 7402126, 1527397, 09737943 ####[address] [place] [address] Monocytes/100 WBC (Bld) 7.8 % Normal 4.0-14.0 [facility] Comment on above: Order Comment: Order Added by Discern Expert. Performed By: #### 2 926690, 9368602, 0386086, 9061377, 2871938, 72308259 ####[address] [place] [address] Monocytes/Leukocytes Auto (Bld) [Pure # fraction] 0.4 E9/L Normal 0.2-1.0 [facility] Comment on above: Order Comment: Order Added by Discern Expert. Performed By: #### 2 375210, 6077557, 0760412, 9479451, 1352835, 05412055 ####[facility] [address] [place] [address] Neutrophils/100 WBC (Bld) 65.0 % Normal 36.0-75.0 [facility] Comment on above: Order Comment: Order Added by Discern Expert. Performed By: #### 2 849824, 4471095, 7129282, 2453398, 5092896, 64441435 ####[facility] [address] [place] [address] Neutrophils/Leukocytes Auto (Bld) [Pure # fraction] 3.5 E9/L Normal 2.0-7.5 [facility] Comment on above: Order Comment: Order Added by Discern Expert. Performed By: #### 2 849246, 2330323, 3672408, 0888049, 9445445, 12746091 ####[facility] [address] [place] [address] BLOOD BANKOrdered By: Keila Kumar on 06-14-2023 ABO/Rh Interp Positive Invalid Interpretation Code [facility] BB Subsection BMPon 06-14-2023 Creatinine [Mass/Vol] 0.5 mg/dL Normal 0.5-1.3 [facility] Comment on above: Performed By: #### 2 445878, 4983231, 1502422, 0001485, 7884155, 36189621 ####[facility] [address] [place] [address] Urea nitrogen [Mass/Vol] 6 mg/dL Normal 5-21 [facility] Comment on above: Performed By: #### 2 416120, 3269210, 5815714, 6599746, 4708503, 94574525 ####[facility] [address] [place] [address] Urea nitrogen/Creatinine [Mass ratio] 12 No Units Normal 10-20 [facility] Comment on above: Performed By: #### 2 500107, 6958577, 0389965, 9100039, 4455542, 38309092 ####[facility] [address] [place] [address] Anion gap [Moles/Vol] 10 mmol/L Normal 6-16 [facility] Comment on above: Performed By: #### 2 274687, 0686966, 4726585, 1700605, 5405080, 17322212 ####[facility] [address] [place] [address] Calcium [Mass/Vol] 8.7 mg/dL Low 8.9-11.1 [facility] Comment on above: Performed By: #### 2 826177, 5408022, 2785078, 8521025, 4346886, 76133438 ####[facility] [address] [place] [address] Chloride [Moles/Vol] 107 mmol/L Normal 101-111 [facility] Comment on above: Performed By: #### 2 357545, 3347767, 3115330, 5702659, 0155126, 22503528 ####[facility] [address] [place] [address] CO2 [Moles/Vol] 21 mmol/L Normal 21-31 [facility] Comment on above: Performed By: #### 2 385603, 6277124, 7181102, 8590141, 7453728, 95495021 ####[facility] [address] [place] [address] Glucose [Mass/Vol] 77 mg/dL Normal 55-199 [facility] Comment on above: Result Comment: If t his glucose result represents a fasting glucose, interpretation should refer to the following reference range: 55-99 mg/dL Performed By: #### 2 687371, 4954117, 4575407, 7561397, 0818622, 12424484 ####[facility] [address] [place] [address] Potassium [Moles/Vol] 3.8 mmol/L Normal 3.5-5.3 [facility] Comment on above: Performed By: #### 2 493410, 6541935, 2460948, 5628322, 5654767, 05766430 ####[facility] [address] [place] [address] Sodium [Moles/Vol] 134 mmol/L Low 135-145 [facility] Comment on above: Performed By: #### 2 512648, 5336839, 4102831, 2928708, 2165285, 76538668 ####[facility] [address] [place] [address] BhCG Quanton 06-14-2023 HCG.beta subunit Qn 437760 m[IU]/mL High 1-3 [facility] Comment on above: Result Comment: GEST ATIONAL AGE HCG RANGE (mIU/mL) NON- <1-3 0.2-1 WEEKS 5-50 1-2 WEEKS 50-500 2-3 WEEKS 100-5,000 3-4 WEEKS 500-10,000 4-5 WEEKS 1,000-50,000 5-6 WEEKS 10,000-100,000 6-8 WEEKS 15,000-200,000 8-12 WEEKS 10,000-100,000 Performed By: #### 2 393439 ####[facility] [address] [place] [address] CBC w/ Auto Diffon Erythrocyte distribution width (RBC) [Ratio] 12.6 % Normal 10.9-14.2 [facility] Comment on above: Performed By: #### 2 691789, 0041922, 6430148, 8315465, 1326281, 11647397 ####[facility] [address] [place] [address] Hematocrit (Bld) [Volume fraction] 39.9 % Normal 34.0-46.0 [facility] Comment on above: Performed By: #### 2 565262, 2204611, 8758887, 3444794, 6299886, 72335497 ####[facility] [address] [place] [address] Hemoglobin (Bld) [Mass/Vol] 13.4 g/dL Normal 12.0-16.0 [facility] Comment on above: Performed By: #### 2 751967, 8780383, 2983587, 6624288, 2967058, 55890444 ####[facility] [address] [place] [address] MCH (RBC) [Entitic mass] 29.8 pg Normal 27.0-34.0 [facility] Comment on above: Performed By: #### 2 319875, 5630709, 2880019, 0479086, 3648858, 43235389 ####[address] MCHC (RBC) [Mass/Vol] 33.6 g/dL Normal 31.4-36.0 [facility] Comment on above: Performed By: #### 2 171744, 5879248, 7962679, 0838146, 6793946, 98463583 ####[address] [address] MCV (RBC) [Entitic vol] 88.8 fL Normal 80.0-100.0 [facility] Comment on above: Performed By: #### 2 260783, 2336205, 4069465, 8354202, 7451102, 13175617 ####[address] [address] Platelet mean volume (Bld) [Entitic vol] 8.4 fL Normal 6.4-10.8 [facility] Comment on above: Performed By: #### 2 334311, 7242381, 0704947, 7328815, 5880284, 04005648 ####[address] [address] Platelets (Bld) [#/Vol] 225.0 E9/L Normal 150.0-500.0 [facility] Comment on above: Performed By: #### 2 699776, 6370908, 4018587, 9239951, 5368375, 79383395 ####[address] [address] RBC (Bld) [#/Vol] 4.5 E12/L Normal 4.3-5.9 [facility] Comment on above: Performed By: #### 2 018362, 8932884, 0880099, 6088952, 5816220, 04193616 ####[facility] [address] [place] [address] WBC corrected for nucl RBC Auto (Bld) [#/Vol] 5.4 E9/L Normal 4.0-11.0 [facility] Comment on above: Performed By: #### 2 076517, 4047953, 9807303, 2568791, 5195741, 04154080 ####[facility] [address] [place] [address] CHEMISTRYOrdered By: SYSTEM SYSTEM on 06-14-2023 Albumin [...] 130 mL/min/1.73 m2 Normal >=59mL/min/ 1.73 m2 [facility] Chem S Globulin (S) [Mass/Vol] 3.3 g/dL Normal 1.4 - 4.0 gm/dL FT Remisol Glucose [Mass/Vol] 77 mg/dL Normal 55 - 199 mg/dL FT Remisol HCG.beta subunit Qn 733938 m[IU]/mL High 1 - 3 mIU/mL FT [...] Consent for Treatmenton 05-17 Consent for Treatment [id number]:12 [id number] Normal [facility] ED Clinical Summaryon 2022 ED Clinical Summary Normal [facility] ED Note-Physicianon 06-14-20 ED Note-Physician Normal [facility] Comment on above: Result Comment: Elec tronically Signed By: Jos Ugalde PA-C\.br\Date and Time Signed: 06/14/23 11:58 EDT\.br\Electronically Co-Signed By: Kristian Guillermo DO.br\Date and Time Co-Signed: 06/14/23 17:02 EDT ED Patient Education Noteon 06-14-2023 ED Patient Education Note Normal [facility] ED Patient Summaryon 023 ED Patient Summary Normal [facility] HEMATOLOGYOrdered By: SYSTEM SYSTEM on 06-14-2023 [...] 88.8 fL Normal 80.0 - 100.0 fL [facility] HemeAutoSS Platelet mean volume (Bld) [Entitic vol] 8.4 fL Normal 6.4 - 10.8 fL [facility] HemeAutoSS Platelets (Bld) [#/Vol] 225.0 E9/L Normal 150.0 - 500.0 E9/L [facility] HemeAutoSS RBC (Bld) [#/Vol] 4.5 E12/L Normal 4.3 - 5.9 E12/L [facility] HemeAutoSS WBC corrected for nucl RBC Auto (Bld) [#/Vol] 5.4 E9/L Normal 4.0 - 11.0 E9/L [facility] HemeAutoSS Hep Func Panelon 06-14-2023 Bilirubin.indirect [Mass or moles/Vol] UTC Abnormal 0.1-0.9 [facility] Comment on above: Result Comment: Resu lt verified by Discern Rule. Performed result UTC (Unable to Calculate) was sent as an Alpha code due the inability to calculate a valid numeric value. Performed By: #### 2 722681, 6840196, 9179613, 3036541, 3273493, 90703798 ####[facility] [address] [place] [address] Albumin [Mass/Vol] 3.5 g/dL Normal 3.3-5.0 [facility] Comment on above: Performed By: #### 2 781476, 9336047, 2748791, 6438535, 1147300, 13912185 ####[facility] [address] [place] [address] Albumin/Globulin (S) [Mass conc ratio] 1.1 Normal 1.1-2.2 [facility] Comment on above: Performed By: #### 2 313010, 3510848, 4864511, 4101311, 6861912, 62192206 ####[facility] [address] [place] [address] ALP [Catalytic activity/Vol] 34 Int._Unit/L Normal 21-98 [facility] Comment on above: Performed By: #### 2 049655, 3475989, 7909536, 5681910, 2302956, 66754221 ####[facility] [address] [place] [address] ALT No additional P-5'-P [Catalytic activity/Vol] 13 Int._Unit/L Normal 6-46 [facility] Comment on above: Performed By: #### 2 985476, 6632645, 5088845, 6516880, 4420345, 46312192 ####[address] [address] AST [Catalytic activity/Vol] 17 Int._Unit/L Normal 5-43 [facility] Comment on above: Performed By: #### 2 811216, 2259194, 6002912, 3455274, 5025470, 14485451 ####[address] [address] Bilirubin [Mass/Vol] 0.6 mg/dL Normal 0.0-1.1 [facility] Comment on above: Performed By: #### 2 758008, 6932596, 2613318, 2793314, 2198772, 61793990 ####[address] [address] Globulin (S) [Mass/Vol] 3.3 g/dL Normal 1.4-4.0 [facility] Comment on above: Performed By: #### 2 470910, 4602175, 4918734, 0136194, 6462392, 29054437 ####[address] [address] Protein [Mass/Vol] 6.8 g/dL Normal 6.0-7.8 [facility] Comment on above: Performed By: #### 2 354630, 9339761, 4310387, 6883898, 0522648, 35083394 ####[address] [place] [address] Bilirubin.direct [Mass/Vol] mg/dL Normal 0.1-0.4 [facility] Comment on above: Performed By: #### 2 870661, 4439472, 0327842, 6578091, 5005484, 69060422 ####[facility] [address] [place] [address] Lipase Levelon 06-14-2023 Lipase [Catalytic activity/Vol] 28 U/L Normal 13-58 [facility] Comment on above: Performed By: #### 2 304063, 9500000, 4560418, 6393996, 8635164, 59728886 ####[address] [address] Progress Note-Nurseon 2022 Progress Note-Nurse MAHESH Hinds verbalize d she was unable to locate patient at this time Normal [facility] UA With Cult Reflexon 2022 Bacteria LM Ql (Urine sed) TRACE Normal Trace [facility] Comment on above: Performed By: #### 1 6712177 ####[address] [address] Bilirubin Ql (U) Negative Normal Negative [facility] Comment on above: Performed By: #### 1 0915818 ####[address] [address] Clarity (U) CLEAR Normal Clear [facility] Comment on above: Performed By: #### 1 7293211 ####[address] [address] Color (U) YELLOW Normal Yellow [facility] Comment on above: Performed By: #### 1 8324779 ####[address] [address] Epithelial cells.squamous LM.HPF (Urine sed) [#/Area] 3-4 Normal 0-2 [facility] Comment on above: Performed By: #### 1 2804661 ####[address] [address] Glucose Test strip (U) [Mass/Vol] Negative Normal Negative [facility] Comment on above: Performed By: #### 1 3322448 ####[address] [place] [address] Hemoglobin Ql (U) Negative Normal Negative [facility] Comment on above: Performed By: #### 1 2187232 ####[address] [address] Ketones (U) [Mass/Vol] Negative Normal Negative [facility] Comment on above: Performed By: #### 1 3272749 ####[address] [address] [place].plasma/[place] .RBC (Bld) [Mass ratio] 0-3 Normal 0-3 [facility] Comment on above: Performed By: #### 1 6983300 ####[address] [address] Mucus Ql (Urine sed) TRACE Normal [facility] Comment on above: Performed By: #### 1 5263658 ####[address] [address] Nitrite Ql (U) Negative Normal Negative [facility] Comment on above: Performed By: #### 1 3500049 ####[address] [address] pH (U) 6.5 [pH] Invalid Interpretation Code 5.0-9.0 [facility] Comment on above: Performed By: #### 1 9002461 ####[address] [address] Protein (U) [Mass/Vol] Negative Normal Negative [facility] Comment on above: Performed By: #### 1 1185855 ####[address] [address] Specific gravity (U) [Rel density] 1.015 Invalid Interpretation Code 1.005-1.030 [facility] Comment on above: Performed By: #### 1 3503602 ####[address] [address] Type of Urine collection method Clean Catch Normal [facility] Comment on above: Performed By: #### 1 4526720 ####[facility] [address] [place] [address] Urobilinogen Qn (U) 0.2 {Rola'U}/dL Normal 0.0-1.0 [facility] Comment on above: Performed By: #### 1 6944934 ####[facility] [address] [place] [address] WBC Auto Ql (U) TRACE Abnormal Negative [facility] Comment on above: Performed By: #### 1 [id number] ####[facility] [address] [place] [address] WBC LM.HPF (Urine sed) [#/Area] 0-5 Normal 0-5 [facility] Comment on above: Performed By: #### 1 [id number] ####[facility] [address] [place] [address] URINALYSISOrdered By: An Mccarty on 06-14-2023 Bacteria [...] AM) Normal Negative [facility] UA Auto SS [place].plasma/[place] .RBC (Bld) [Mass ratio] 0-3 /HPF Normal [...] [facility] UA Auto SS Urobilinogen Qn (U) 0.9805363 {Rola'U}/dL Normal 0.0 - 1.0 EU/dL [facility] UA Auto SS WBC Auto Ql (U) Trace *ABN* (06/14/23 10:13 AM) Invalid Interpretation Code Negative [facility] UA Auto SS WBC LM.HPF (Urine sed) [#/Area] 0-5 /HPF Normal 0-5/HPF [facility] UA Auto SS US 1st Trimesteron 06-14-2023 US 1st Trimester Normal [facility] eGFRon 06-14-2023 GFR/1.73 sq M.predicted among non-blacks MDRD (S/P/Bld) [Vol rate/Area] 130 mL/min/1.73 m2 Normal >=59 [facility] Comment on above: Order Comment: Order added by Discern Expert. Result Comment: Management Tech lucy kidney disease could be indicated at eGFR's of less than 60 mL/min/1.73m2. Kidney failure is indicated at less than 15 mL/min/1.73m2. Performed By: #### 2 449711, 9872475, 9477402, 3861445, 7965731, 62422674 ####[facility] [address] [place] [address] CHEMISTRYOrdered By: SYSTEM SYSTEM on 06-12-2023 TSH Qn 3.80 m[IU]/L Normal 0.34 - 5.60 mcIU/mL [facility] Remisol Consent for Treatmenton 05-16 Consent for Treatment [id number]#1.00CD:12 7 Normal [facility] Physician Orderon 06-12-2023 Physician Order [id number]#1.00CD:12 7 Normal [facility] TSHon 06-12-2023 TSH Qn 3.80 m[IU]/L Normal 0.34-5.60 [facility] Comment on above: Performed By: #### 2 253169 ####[facility] [address] [place] [address] BhCG Quanton 05-22-2023 HCG.beta subunit Qn 954928 m[IU]/mL High 1-3 [facility] Comment on above: Result Comment: GEST ATIONAL AGE HCG RANGE (mIU/mL) NON- <1-3 0.2-1 WEEKS 5-50 1-2 WEEKS 50-500 2-3 WEEKS 100-5,000 3-4 WEEKS 500-10,000 4-5 WEEKS 1,000-50,000 5-6 WEEKS 10,000-100,000 6-8 WEEKS 15,000-200,000 8-12 WEEKS 10,000-100,000 Performed By: #### 2 039495 ####[facility] [address] [place] [address] Discharge Instructionson Discharge Instructions [id number]#[id number]:1 27 Normal [facility] ED Clinical Summaryon 2022 ED Clinical Summary Normal [facility] ED Note-Physicianon 05-22-20 23 ED Note-Physician Normal [facility] Comment on above: Result Comment: Elec tronically Signed By: Gopi Rodriguez DObr\Date and Time Signed: 05/21/23 23:17 EDT ED Patient Education Noteon 05-22-2023 ED Patient Education Note Normal [facility] ED Patient Summaryon 023 ED Patient Summary Normal [facility] UA With Cult Reflexon 2022 Bacteria LM Ql (Urine sed) TRACE Normal Trace [facility] Comment on above: Performed By: #### 1 [id number] ####[facility] [address] [place] [address] Bilirubin Ql (U) Negative Normal Negative [facility] Comment on above: Performed By: #### 1 1520332 ####[address] [address] Clarity (U) CLEAR Normal Clear [facility] Comment on above: Performed By: #### 1 7453085 ####[address] [address] Color (U) DARK YELLO Abnormal Yellow [facility] Comment on above: Performed By: #### 1 5602703 ####[address] [address] Epithelial cells.squamous LM.HPF (Urine sed) [#/Area] 0-2 Normal 0-2 [facility] Comment on above: Performed By: #### 1 0579791 ####[address] [address] Glucose Test strip (U) [Mass/Vol] Negative Normal Negative [facility] Comment on above: Performed By: #### 1 9634293 ####[address] [address] Hemoglobin Ql (U) TRACE Abnormal Negative [facility] Comment on above: Performed By: #### 1 7819339 ####[facility] [address] [place] [address] Ketones (U) [Mass/Vol] TRACE Abnormal Negative [facility] Comment on above: Performed By: #### 1 8889744 ####[facility] [address] [place] [address] [place].plasma/[place] .RBC (Bld) [Mass ratio] 4-20 Normal 0-3 [facility] Comment on above: Performed By: #### 1 9777240 ####[facility] [address] [place] [address] Mucus Ql (Urine sed) 1+ Normal [facility] Comment on above: Performed By: #### 1 2281052 ####[facility] [address] [place] [address] Nitrite Ql (U) Negative Normal Negative [facility] Comment on above: Performed By: #### 1 1208322 ####[address] [address] pH (U) 6.0 [pH] Invalid Interpretation Code 5.0-9.0 [facility] Comment on above: Performed By: #### 1 5528776 ####[address] [address] Protein (U) [Mass/Vol] 2+ Abnormal Negative [facility] Comment on above: Performed By: #### 1 3205116 ####[address] [address] Specific gravity (U) [Rel density] >=1.030 Invalid Interpretation Code 1.005-1.030 [facility] Comment on above: Performed By: #### 1 3394397 ####[address] [address] Type of Urine collection method Clean Catch Normal [facility] Comment on above: Performed By: #### 1 8670218 ####[address] [address] Urobilinogen Qn (U) 0.2 {Rola'U}/dL Normal 0.0-1.0 [facility] Comment on above: Performed By: #### 1 1625423 ####[address] [address] WBC Auto Ql (U) Negative Normal Negative [facility] Comment on above: Performed By: #### 1 1082350 ####[address] [address] WBC LM.HPF (Urine sed) [#/Area] 0-5 Normal 0-5 [facility] Comment on above: Performed By: #### 1 8643759 ####[address] [place] [address] US 1st Trimesteron 05-22-2023 US 1st Trimester Normal [facility] Auto Diffon 05-21-2023 Basophils/100 WBC (Bld) 1.0 % Normal 0.0-2.0 [facility] Comment on above: Order Comment: Order Added by Discern Expert. Performed By: #### 2 855821, 3065752, 04475183, 85434364, 9432743, 9631114, 6938248 ####[address] [address] Basophils/Leukocytes Auto (Bld) [Pure # fraction] 0.1 E9/L Normal 0.0-0.2 [facility] Comment on above: Order Comment: Order Added by Discern Expert. Performed By: #### 2 053566, 3125105, 68208073, 31764337, 8674433, 6182359, 1680079 ####[address] [address] Eosinophils/100 WBC (Bld) 1.5 % Normal 0.0-8.0 [facility] Comment on above: Order Comment: Order Added by Discern Expert. Performed By: #### 2 394813, 2239621, 61120561, 99458096, 3784408, 4425310, 6033602 ####[address] [address] Eosinophils/Leukocytes Auto (Bld) [Pure # fraction] 0.1 E9/L Normal 0.0-0.5 [facility] Comment on above: Order Comment: Order Added by Discern Expert. Performed By: #### 2 529540, 9882507, 16520905, 05639698, 3974801, 0840495, 3200055 ####[address] [address] Lymphocytes/100 WBC (Bld) 36.6 % Normal 14.0-50.0 [facility] Comment on above: Order Comment: Order Added by Discern Expert. Performed By: #### 2 536650, 6812515, 45717193, 31216619, 2614829, 2477663, 8422673 ####[address] [place] [address] Lymphocytes/Leukocytes Auto (Bld) [Pure # fraction] 2.5 E9/L Normal 1.0-4.0 [facility] Comment on above: Order Comment: Order Added by Discern Expert. Performed By: #### 2 769606, 1614287, 52520717, 01919723, 2596882, 5524091, 9296455 ####[address] [place] [address] Monocytes/100 WBC (Bld) 8.2 % Normal 4.0-14.0 [facility] Comment on above: Order Comment: Order Added by Discern Expert. Performed By: #### 2 710716, 2930497, 11986372, 26763117, 8232528, 4035127, 3420252 ####[address] [address] Monocytes/Leukocytes Auto (Bld) [Pure # fraction] 0.6 E9/L Normal 0.2-1.0 [facility] Comment on above: Order Comment: Order Added by Discern Expert. Performed By: #### 2 785812, 2253726, 75685855, 46686797, 5431522, 5012138, 7052910 ####[address] [address] Neutrophils/100 WBC (Bld) 52.7 % Normal 36.0-75.0 [facility] Comment on above: Order Comment: Order Added by Discern Expert. Performed By: #### 2 777987, 6680162, 60470577, 01279175, 8887916, 9342991, 2896499 ####[address] [place] [address] Neutrophils/Leukocytes Auto (Bld) [Pure # fraction] 3.6 E9/L Normal 2.0-7.5 [facility] Comment on above: Order Comment: Order Added by Discern Expert. Performed By: #### 2 517449, 8040927, 93746085, 05638373, 0210865, 1383198, 7616228 ####[facility] [address] [place] [address] BMPon 05-21-2023 Creatinine [Mass/Vol] 0.7 mg/dL Normal 0.5-1.3 [facility] Comment on above: Performed By: #### 2 682628, 6785148, 40097320, 08536009, 1542612, 0575309, 8512905 ####[facility] [address] [place] [address] Urea nitrogen [Mass/Vol] 8 mg/dL Normal 5-21 [facility] Comment on above: Performed By: #### 2 714769, 8427444, 83727578, 13714086, 4220581, 5063292, 0151984 ####[facility] [address] [place] [address] Urea nitrogen/Creatinine [Mass ratio] 11 No Units Normal 10-20 [facility] Comment on above: Performed By: #### 2 216893, 4395824, 59180602, 95660104, 7269525, 2400628, 0863061 ####[facility] [address] [place] [address] Anion gap [Moles/Vol] 12 mmol/L Normal 6-16 [facility] Comment on above: Performed By: #### 2 068250, 2070001, 72998686, 02752614, 9479097, 8602129, 5724226 ####[facility] [address] [place] [address] Calcium [Mass/Vol] 9.2 mg/dL Normal 8.9-11.1 [facility] Comment on above: Performed By: #### 2 471592, 8792219, 67566217, 99330014, 8136005, 7087737, 7890032 ####[facility] [address] [place] [address] Chloride [Moles/Vol] 104 mmol/L Normal 101-111 [facility] Comment on above: Performed By: #### 2 943616, 9335223, 10745192, 94838444, 3964921, 9904216, 7728837 ####[facility] [address] [place] [address] CO2 [Moles/Vol] 24 mmol/L Normal 21-31 [facility] Comment on above: Performed By: #### 2 170964, 6353369, 30933626, 31392467, 5295803, 9058888, 9683410 ####[facility] [address] [place] [address] Glucose [Mass/Vol] 87 mg/dL Normal 55-199 [facility] Comment on above: Result Comment: If t his glucose result represents a fasting glucose, interpretation should refer to the following reference range: 55-99 mg/dL Performed By: #### 2 067293, 1654500, 77060301, 81801126, 0163679, 6379356, 7186630 ####[facility] [address] [place] [address] Potassium [Moles/Vol] 3.2 mmol/L Low 3.5-5.3 [facility] Comment on above: Performed By: #### 2 956486, 2185410, 77560287, 19361373, 5407848, 3759939, 7876118 ####[facility] [address] [place] [address] Sodium [Moles/Vol] 137 mmol/L Normal 135-145 [facility] Comment on above: Performed By: #### 2 233720, 6958087, 14770509, 91444965, 9640114, 6828097, 5068907 ####[facility] [address] [place] [address] CBC w/ Auto Diffon 3 Erythrocyte distribution width (RBC) [Ratio] 13.3 % Normal 10.9-14.2 [facility] Comment on above: Performed By: #### 2 434488, 9112429, 12439472, 42055190, 9965993, 6113445, 2255417 ####[address] [place] [address] Hematocrit (Bld) [Volume fraction] 39.0 % Normal 34.0-46.0 [facility] Comment on above: Performed By: #### 2 260632, 3544804, 23458361, 80201763, 9186749, 1520755, 9102327 ####[address] [address] Hemoglobin (Bld) [Mass/Vol] 13.3 g/dL Normal 12.0-16.0 [facility] Comment on above: Performed By: #### 2 109371, 7775188, 69778254, 83238890, 4582760, 2912359, 5531405 ####[address] MCH (RBC) [Entitic mass] 30.3 pg Normal 27.0-34.0 [facility] Comment on above: Performed By: #### 2 846970, 5385295, 99904848, 59705427, 2334164, 4052211, 5181976 ####[address] [address] MCHC (RBC) [Mass/Vol] 34.2 g/dL Normal 31.4-36.0 [facility] Comment on above: Performed By: #### 2 254658, 4300785, 92888733, 24863936, 6431195, 6809477, 3098310 ####[address] [address] MCV (RBC) [Entitic vol] 88.7 fL Normal 80.0-100.0 [facility] Comment on above: Performed By: #### 2 834954, 6946984, 43390208, 93039591, 7006409, 5465159, 7444592 ####[address] [place] [address] Platelet mean volume (Bld) [Entitic vol] 7.8 fL Normal 6.4-10.8 [facility] Comment on above: Performed By: #### 2 576387, 2750422, 19407680, 44035248, 4348380, 7536046, 1040123 ####[address] [address] Platelets (Bld) [#/Vol] 225.0 E9/L Normal 150.0-500.0 [facility] Comment on above: Performed By: #### 2 911936, 9030129, 38166540, 94083271, 3520682, 7456925, 6815844 ####[address] [address] RBC (Bld) [#/Vol] 4.4 E12/L Normal 4.3-5.9 [facility] Comment on above: Performed By: #### 2 286832, 3499387, 27774248, 75967954, 4948958, 3993496, 2647498 ####[address] [address] WBC corrected for nucl RBC Auto (Bld) [#/Vol] 6.8 E9/L Normal 4.0-11.0 [facility] Comment on above: Performed By: #### 2 495495, 3704154, 61301485, 43569146, 6708721, 1590814, 8920951 ####[address] [address] CHEMISTRYOrdered By: SYSTEM SYSTEM on 05-21-2023 HCG.beta subunit Qn 921143 m[IU]/mL High 1 - 3 mIU/mL [facility] [...] 120 mL/min/1.73 m2 Normal >=59mL/min/ 1.73 m2 [facility] Chem S Globulin [...] Remisol Consent for Treatmenton Consent for Treatment [id number]#[id number]:12 7 Normal [facility] HEMATOLOGYOrdered By: SYSTEM SYSTEM on 05-21-2023 [...] Bilirubin.indirect [Mass or moles/Vol] UTC Abnormal 0.1-0.9 [facility] Comment on above: Result Comment: Resu lt verified by Discern Rule. Performed result UTC (Unable to Calculate) was sent as an Alpha code due the inability to calculate a valid numeric value. Performed By: #### 2 798471, 3507030, 24993991, 69191683, 8264987, 3166550, 8269109 ####[facility] [address] [place] [address] Albumin [Mass/Vol] 3.8 g/dL Normal 3.3-5.0 [facility] Comment on above: Performed By: #### 2 579536, 9426239, 00978783, 75537814, 0082265, 0827531, 0265600 ####[facility] [address] [place] [address] Albumin/Globulin (S) [Mass conc ratio] 1.2 Normal 1.1-2.2 [facility] Comment on above: Performed By: #### 2 354179, 9717909, 90813592, 61345756, 6060442, 5648801, 4421052 ####[facility] [address] [place] [address] ALP [Catalytic activity/Vol] 42 Int._Unit/L Normal 21-98 [facility] Comment on above: Performed By: #### 2 058903, 3281538, 13179977, 48014383, 4783008, 3165025, 7327415 ####[address] [place] [address] ALT No additional P-5'-P [Catalytic activity/Vol] 13 Int._Unit/L Normal 6-46 [facility] Comment on above: Performed By: #### 2 837872, 7046673, 88902013, 64151282, 5315202, 5808557, 6583729 ####[address] [address] AST [Catalytic activity/Vol] 14 Int._Unit/L Normal 5-43 [facility] Comment on above: Performed By: #### 2 707604, 5790567, 33346513, 74402946, 1836412, 3629371, 5168825 ####[address] [address] Bilirubin [Mass/Vol] 0.5 mg/dL Normal 0.0-1.1 [facility] Comment on above: Performed By: #### 2 497208, 7207698, 51858426, 07454988, 0134155, 1105353, 3632826 ####[address] [place] [address] Globulin (S) [Mass/Vol] 3.1 g/dL Normal 1.4-4.0 [facility] Comment on above: Performed By: #### 2 988720, 2985890, 82744348, 46068784, 6818282, 8891999, 6938134 ####[facility] [address] [place] [address] Protein [Mass/Vol] 6.9 g/dL Normal 6.0-7.8 [facility] Comment on above: Performed By: #### 2 379726, 0945495, 02081792, 62726483, 0596410, 8409632, 3261299 ####[facility] [address] [place] [address] Bilirubin.direct [Mass/Vol] mg/dL Normal 0.1-0.4 [facility] Comment on above: Performed By: #### 2 640393, 5819743, 87843233, 39934228, 7183714, 7984871, 7921461 ####[facility] [address] [place] [address] Lipase Levelon 05-21-2023 Lipase [Catalytic activity/Vol] 31 U/L Normal 13-58 [facility] Comment on above: Performed By: #### 2 685732, 3357644, 76903548, 77242038, 5601902, 7278516, 8742754 ####[facility] [address] [place] [address] Troponin 0 Hr.on 05-21-2023 Troponin I.cardiac [Mass/Vol] 2.50 pg/mL Low 10.10-27.10 [facility] Comment on above: Result Comment: The 95% CI (Confidence Interval) PPV (Positive Predictive Value) for myocardial infarction in females is 38 pg/mL, in males 51 pg/mL. The results should be used in conjunction with clinical conditions of myocardial infarction.(Access High Sensitivity Troponin I Instructions For Use, [place], May 2018) Performed By: #### 2 983913, 1793676, 78939345, 95162757, 9242100, 5742594, 4717309 ####[facility] [address] [place] [address] URINALYSISOrdered By: Jose Miguel nelson on 05-21-2023 [...] Interpretation Code Negative [facility] UA Auto SS [place].plasma/[place] .RBC (Bld) [Mass ratio] 4-20 /HPF Normal [...] [facility] UA Auto SS Urobilinogen Qn (U) 0.5551168 {Rola'U}/dL Normal 0.0 - 1.0 EU/dL [facility] UA Auto SS WBC Auto Ql (U) Negative (05/21/23 10:17 PM) Normal Negative [facility] UA Auto SS WBC LM.HPF (Urine sed) [#/Area] 0-5 /HPF Normal 0-5/HPF [facility] UA Auto SS eGFRon 05-21-2023 GFR/1.73 sq M.predicted among non-blacks MDRD (S/P/Bld) [Vol rate/Area] 120 mL/min/1.73 m2 Normal >=59 [facility] Comment on above: Order Comment: Order added by Discern Expert. Result Comment: Management Tech lucy kidney disease could be indicated at eGFR's of less than 60 mL/min/1.73m2. Kidney failure is indicated at less than 15 mL/min/1.73m2. Performed By: #### 2 604319, 8692454, 70727940, 23302860, 9028952, 4873998, 6890499 ####[facility] [address] [place] [address] PAP [id number] 05-03-2023 C. trachomatis rRNA MAHAD+probe Ql (Cvx) Negative Invalid Interpretation Code Negative [facility] Comment on above: Performed By: #### 3 156974839 ####[facility] [address] [place] [address] Cytology report Cyto stain Doc (Cvx/Vag) Note Invalid Interpretation Code [facility] Comment on above: Result Comment: TEST S RESULT FLAG UNITS REF RANGE LAB Clinician Provided Cytology InformationSource.............EndocervixNo. of containers..01 ThinPrep VialDIAGNOSIS: 01NEGATIVE FOR INTRAEPITHELIAL LESION OR MALIGNANCY.Specimen adequacy: 01Satisfactory for evaluation. Endocervical and/or squamous metaplasticcells (endocervical component) are present.Performed by: Eliana Shea Inside Account Executive (ASCP). 01Note: Note 01The Pap smear is [...] Low,>-Panic High,A-Abnormal,AA-Critical Abnormal -----Performed at:[address] [facility] [address] [place] [address]AmtippJoya Walton MD, Performed By: #### 3 [id number] ####[address] [address] N. gonorrhoeae rRNA MAHAD+probe Ql (Cvx) Negative Invalid Interpretation Code Negative [facility] Comment on above: Result Comment: Perf ormed at: [facility] [address] [id number] MD Anton HinsonPerformed at: =[facility] [address] [id number] MD Anton Hinson Performed By: #### 3 838219684 ####[address] [place] [address] C Urineon 05-02-2023 Bacteria identified Cx Nom (U) Normal [facility] Comment on above: Performed By: #### 2 013820 ####[address] [place] [address] HIV Screen 4th Generation wR fxon 05-01-2023 HIV 1+2 Ab+HIV1 p24 Ag IA Ql Non-Reactive Invalid Interpretation Code Non Reactive [facility] Comment on above: Result Comment: HIV NegativeHIV-1/HIV-2 antibodies and HIV-1 p24 antigen were NOT detected.There is no laboratory evidence of HIV infection.Performed at: [id number] [place], [place] [id number] PhD [facility] Performed By: #### 1 68226883, 32085708, 475093944, 6715299, 5177492 ####[facility] [address] [place] [address] Hep Bs Agon 05-01-2023 HBV surface Ag IA Ql Negative Invalid Interpretation Code Negative [facility] Comment on above: Result Comment: Perf ormed at: [address] [id number] PhD [facility] Performed By: #### 1 34496597, 03368242, 716236483, 9949446, 6635420 ####[facility] [address] [place] [address] RPR with Conf Rfxon 05-01-20 23 Reagin Ab RPR Ql (S) Non-Reactive Invalid Interpretation Code Non Reactive [facility] Comment on above: Result Comment: Perf ormed at: [address] [id number] PhD [facility] Performed By: #### 1 68426133, 35282625, 812635842, 0712706, 4119774 ####[facility] [address] [place] [address] Rubella IgGon 05-01-2023 Rubella virus IgG Qn (S) [IU]/mL Low Immune >0.99 [facility] Comment on above: Result Comment: Non- immune <0.90Equivocal 0.90 - 0.99Immune >0.99Performed at: [address] [id number] PhD [facility] Performed By: #### 1 16660963, 30548880, 155079218, 4460868, 3522908 ####[facility] [address] [place] [address] ABO/Rhon 04-30-2023 ABO/Rh Positive Invalid Interpretation Code [facility] Comment on above: Performed By: #### 2 619788, 08731668 ####[facility] [address] [place] [address] ABSCon 04-30-2023 ABSC Gel Interp Negative Normal [facility] Comment on above: Performed By: #### 2 903180, 17175163 ####[address] [place] [address] BLOOD BANKOrdered By: Diamond Junior on 04-30-2023 ABO/Rh Interp Positive Invalid Interpretation Code [facility] BB Subsection ABSC Gel Interp Negative (04/30/23 9:30 AM) Normal [facility] BB Subsection BhCG Quanton 04-30-2023 [place] [address] m[IU]/mL High 1-3 F [facility] Comment on above: Result Comment: GEST ATIONAL AGE HCG RANGE (mIU/mL) NON- <1-3 0.2-1 WEEKS 5-50 1-2 WEEKS 50-500 2-3 WEEKS 100-5,000 3-4 WEEKS 500-10,000 4-5 WEEKS 1,000-50,000 5-6 WEEKS 10,000-100,000 6-8 WEEKS 15,000-200,000 8-12 WEEKS 10,000-100,000 Performed By: #### 2 890706 ####[facility] [address] [place] [address] CBC w/Indiceson 04-30-2023 Erythrocyte distribution width (RBC) [Ratio] 13.7 % Normal 10.9-14.2 [facility] Comment on above: Performed By: #### 1 00857182, 43813600, 605283206, 8355758, 3422906 ####[facility] [address] [place] [address] Hematocrit (Bld) [Volume fraction] 40.7 % Normal 34.0-46.0 [facility] Comment on above: Performed By: #### 1 07133410, 95147949, 861273548, 6820586, 5074655 ####[facility] [address] [place] [address] Hemoglobin (Bld) [Mass/Vol] 13.8 g/dL Normal 12.0-16.0 [facility] Comment on above: Performed By: #### 1 23672196, 48723102, 829485755, 9309187, 7576130 ####[address] [address] MCH (RBC) [Entitic mass] 30.5 pg Normal 27.0-34.0 [facility] Comment on above: Performed By: #### 1 96119145, 71183933, 167337573, 2077449, 6094124 ####[address] [address] MCHC (RBC) [Mass/Vol] 33.9 g/dL Normal 31.4-36.0 [facility] Comment on above: Performed By: #### 1 40569683, 71953159, 050230343, 6415137, 5777144 ####[address] [address] MCV (RBC) [Entitic vol] 89.9 fL Normal 80.0-100.0 [facility] Comment on above: Performed By: #### 1 87877597, 62139567, 554159874, 2884011, 8457863 ####[address] [place] [address] Platelet mean volume (Bld) [Entitic vol] 8.2 fL Normal 6.4-10.8 [facility] Comment on above: Performed By: #### 1 12297207, 41982484, 934912891, 7352565, 8717016 ####[address] [place] [address] Platelets (Bld) [#/Vol] 279.0 E9/L Normal 150.0-500.0 [facility] Comment on above: Performed By: #### 1 68109576, 60505150, 698310436, 3296255, 0465144 ####[facility] [address] [place] [address] RBC (Bld) [#/Vol] 4.5 E12/L Normal 4.3-5.9 [facility] Comment on above: Performed By: #### 1 36901568, 74070174, 363699832, 1963274, 5777971 ####[facility] [address] [place] [address] WBC corrected for nucl RBC Auto (Bld) [#/Vol] 5.8 E9/L Normal 4.0-11.0 [facility] Comment on above: Performed By: #### 1 [id number], 65041184, [id number], 3463800, 3531362 ####[facility] [address] [place] [address] CHEMISTRYOrdered By: [employer] SYSTEM on 04-30-2023 [place] [address] m[IU]/mL High 1 - 3 mIU/mL [facility] Remisol Consent for Treatmenton 04-14 Consent for Treatment [id number]#1.00CD:12 7 Normal [facility] HEMATOLOGYOrdered By: Temi Romero on 04-30-2023 [...] 33.9 g/dL Normal 31.4 - 36.0 gm/dL [facility] HemeAutoSS MCV (RBC) [Entitic vol] 89.9 fL Normal 80.0 - 100.0 fL [facility] HemeAutoSS Platelet mean volume (Bld) [Entitic vol] 8.2 fL Normal 6.4 - 10.8 fL [facility] HemeAutoSS Platelets (Bld) [#/Vol] 279.0 E9/L Normal 150.0 - 500.0 E9/L [facility] HemeAutoSS RBC (Bld) [#/Vol] 4.5 E12/L Normal 4.3 - 5.9 E12/L [facility] HemeAutoSS WBC corrected for nucl RBC Auto (Bld) [#/Vol] 5.8 E9/L Normal 4.0 - 11.0 E9/L [facility] HemeAutoSS PAP [id number] 04-30-2023 Collection Technique BRUSH-SPATULA Normal F [facility] Comment on above: Performed By: #### 3 [id number] ####[facility] [address] [place] [address] Gynecological Body Site ENDOCERVIX Normal [facility] Comment on above: Performed By: #### 3 [id number] ####[facility] [address] [place] [address] Physician Orderon 04-30-2023 Physician Order [id number]#1.00CD:1 27 Normal [facility] Physician Order [id number]#1.00CD:1 27 Normal [facility] BhCG Quanton 04-26-2023 [place] [address] m[IU]/mL High 1-3 F [facility] Comment on above: Result Comment: GEST ATIONAL AGE HCG RANGE (mIU/mL) NON- <1-3 0.2-1 WEEKS 5-50 1-2 WEEKS 50-500 2-3 WEEKS 100-5,000 3-4 WEEKS 500-10,000 4-5 WEEKS 1,000-50,000 5-6 WEEKS 10,000-100,000 6-8 WEEKS 15,000-200,000 8-12 WEEKS 10,000-100,000 Performed By: #### 2 [id number] ####[facility] [address] [place] [address] CHEMISTRYOrdered By: SYSTEM SYSTEM on 04-26-2023 [place] [address] m[IU]/mL High 1 - 3 mIU/mL [facility] Remisol Consent for Treatmenton 04-14 Consent for Treatment [id number]#1.00CD:12 7 Normal [facility] Discharge Instructionson Discharge Instructions [id number]#1.00CD:1 27 Normal [facility] ED Clinical Summaryon 2022 ED Clinical Summary Normal [facility] ED Note-Physicianon 04-26-20 ED Note-Physician Normal [facility] Comment on above: Result Comment: Elec tronically Signed By: Jos Ugalde PA-C\.br\Date and Time Signed: 04/26/23 10:59 EDT\.br\Electronically Co-Signed By: Laura Noel M.D.\.br\Date and Time Co-Signed: 04/26/23 11:01 EDT ED Patient Education Noteon 04-26-2023 ED Patient Education Note Normal [facility] ED Patient Summaryon 023 ED Patient Summary Normal [facility] UA With Cult Reflexon 2022 Bilirubin Ql (U) Negative Normal Negative [facility] Comment on above: Performed By: #### 1 [id number] ####[facility] [address] [place] [address] Clarity (U) CLEAR Normal Clear [facility] Comment on above: Performed By: #### 1 8915934 ####[facility] [address] [place] [address] Color (U) YELLOW Normal Yellow [facility] Comment on above: Performed By: #### 1 7723744 ####[facility] [address] [place] [address] Crystals LM Ql (Urine sed) Present Normal [facility] Comment on above: Performed By: #### 1 3518699 ####[address] [address] Epithelial cells.squamous LM.HPF (Urine sed) [#/Area] 0-2 Normal 0-2 [facility] Comment on above: Performed By: #### 1 8834507 ####[address] [address] Glucose Test strip (U) [Mass/Vol] Negative Normal Negative [facility] Comment on above: Performed By: #### 1 4635027 ####[address] [address] Hemoglobin Ql (U) Negative Normal Negative [facility] Comment on above: Performed By: #### 1 3062860 ####[address] [address] Ketones (U) [Mass/Vol] Negative Normal Negative [facility] Comment on above: Performed By: #### 1 [id number] ####[address] [address] [place].plasma/[place] .RBC (Bld) [Mass ratio] 0-3 Normal 0-3 [facility] Comment on above: Performed By: #### 1 5336696 ####[address] [address] Mucus Ql (Urine sed) 2+ Normal [facility] Comment on above: Performed By: #### 1 5760316 ####[address] [address] Nitrite Ql (U) Negative Normal Negative [facility] Comment on above: Performed By: #### 1 8860774 ####[address] [address] pH (U) 8.5 [pH] Invalid Interpretation Code 5.0-9.0 [facility] Comment on above: Performed By: #### 1 6716336 ####[facility] [address] [place] [address] Protein (U) [Mass/Vol] Negative Normal Negative [facility] Comment on above: Performed By: #### 1 7253277 ####[facility] [address] [place] [address] Specific gravity (U) [Rel density] 1.015 Invalid Interpretation Code 1.005-1.030 [facility] Comment on above: Performed By: #### 1 1053213 ####[facility] [address] [place] [address] Type of Urine collection method Clean Catch Normal [facility] Comment on above: Performed By: #### 1 9886560 ####[address] [address] Urobilinogen Qn (U) 1.0 {Rola'U}/dL Normal 0.0-1.0 [facility] Comment on above: Performed By: #### 1 1136320 ####[facility] [address] [place] [address] WBC Auto Ql (U) Negative Normal Negative [facility] Comment on above: Performed By: #### 1 8972989 ####[facility] [address] [place] [address] WBC LM.HPF (Urine sed) [#/Area] 0-5 Normal 0-5 [facility] Comment on above: Performed By: #### 1 9336824 ####[facility] [address] [place] [address] URINALYSISOrdered By: An Lassiter on 04-26-2023 Bilirubin [...] AM) Normal Negative [facility] UA Auto SS [place].plasma/[place] .RBC (Bld) [Mass ratio] 0-3 /HPF Normal [...] Desc Clean Catch (04/26/23 9:15 AM) Normal [facility] UA Auto SS Urobilinogen Qn (U) 1.0472134 {Rola'U}/dL Normal 0.0 - 1.0 EU/dL FT UA Auto SS WBC Auto Ql (U) Negative (04/26/23 9:15 AM) Normal Negative [facility] UA Auto SS WBC LM.HPF (Urine sed) [#/Area] 0-5 /HPF Normal 0-5/HPF [facility] UA Auto SS US 1st Trimesteron 04-26-2023 US 1st Trimester Normal [facility] US Transvaginalon 04-26-2023 US Transvaginal Normal [facility] Coding Summary.on 02-02-2023 Coding Summary. Normal [facility] Auto Diffon 01-31-2023 Basophils/100 WBC (Bld) 0.3 % Normal 0.0-2.0 [facility] Comment on above: Order Comment: Order Added by Discern Expert. Performed By: #### 2 118173, 0780309, 84010551, 7690581 ####[address] [address] Basophils/Leukocytes Auto (Bld) [Pure # fraction] 0.0 E9/L Normal 0.0-0.2 [facility] Comment on above: Order Comment: Order Added by Discern Expert. Performed By: #### 2 993293, 7437728, 21113185, 1289170 ####[address] [address] Eosinophils/100 WBC (Bld) 2.8 % Normal 0.0-8.0 [facility] Comment on above: Order Comment: Order Added by Discern Expert. Performed By: #### 2 270035, 6303721, 37531391, 0970666 ####[address] [address] Eosinophils/Leukocytes Auto (Bld) [Pure # fraction] 0.1 E9/L Normal 0.0-0.5 [facility] Comment on above: Order Comment: Order Added by Discern Expert. Performed By: #### 2 603724, 9496080, 18077536, 9500523 ####[address] [address] Lymphocytes/100 WBC (Bld) 30.0 % Normal 14.0-50.0 [facility] Comment on above: Order Comment: Order Added by Discern Expert. Performed By: #### 2 476079, 7894900, 17683147, 9117337 ####[address] [address] Lymphocytes/Leukocytes Auto (Bld) [Pure # fraction] 1.5 E9/L Normal 1.0-4.0 [facility] Comment on above: Order Comment: Order Added by Discern Expert. Performed By: #### 2 061287, 9889510, 58686045, 6365123 ####[address] [place] [address] Monocytes/100 WBC (Bld) 7.0 % Normal 4.0-14.0 [facility] Comment on above: Order Comment: Order Added by Discern Expert. Performed By: #### 2 481782, 2481795, 95705386, 6484459 ####[address] [address] Monocytes/Leukocytes Auto (Bld) [Pure # fraction] 0.4 E9/L Normal 0.2-1.0 [facility] Comment on above: Order Comment: Order Added by Discern Expert. Performed By: #### 2 793421, 0847868, 42054584, 5327644 ####[address] [address] Neutrophils/100 WBC (Bld) 59.9 % Normal 36.0-75.0 [facility] Comment on above: Order Comment: Order Added by Discern Expert. Performed By: #### 2 394229, 5300402, 90178454, 2632040 ####[address] [address] Neutrophils/Leukocytes Auto (Bld) [Pure # fraction] 3.1 E9/L Normal 2.0-7.5 [facility] Comment on above: Order Comment: Order Added by Discern Expert. Performed By: #### 2 580728, 8586908, 73924583, 1132538 ####[address] [address] B hCG Qualon 01-31-2023 Beta hCG Ql Negative Normal [facility] Comment on above: Performed By: #### 2 7944971, 78023610 ####[address] [address] BMPon 01-31-2023 Creatinine [Mass/Vol] 0.8 mg/dL Normal 0.5-1.3 [facility] Comment on above: Performed By: #### 2 844700, 4885272, 60262424, 8762873 ####[facility] [address] [place] [address] Urea nitrogen [Mass/Vol] 9 mg/dL Normal 5-21 [facility] Comment on above: Performed By: #### 2 194305, 9383632, 37360417, 4340727 ####[facility] [address] [place] [address] Urea nitrogen/Creatinine [Mass ratio] 11 No Units Normal 10-20 [facility] Comment on above: Performed By: #### 2 674507, 2755322, 92773662, 6448103 ####[facility] [address] [place] [address] Anion gap [Moles/Vol] 12 mmol/L Normal 6-16 [facility] Comment on above: Performed By: #### 2 285659, 2295432, 03727691, 9295802 ####[facility] [address] [place] [address] Calcium [Mass/Vol] 9.1 mg/dL Normal 8.9-11.1 [facility] Comment on above: Performed By: #### 2 839300, 3852119, 13494307, 7852314 ####[facility] [address] [place] [address] Chloride [Moles/Vol] 104 mmol/L Normal 101-111 [facility] Comment on above: Performed By: #### 2 204601, 1979999, 93017142, 8131714 ####[facility] [address] [place] [address] CO2 [Moles/Vol] 23 mmol/L Normal 21-31 [facility] Comment on above: Performed By: #### 2 354615, 4742011, 32226525, 6313803 ####[facility] [address] [place] [address] Glucose [Mass/Vol] 84 mg/dL Normal 55-199 [facility] Comment on above: Result Comment: If t his glucose result represents a fasting glucose, interpretation should refer to the following reference range: 55-99 mg/dL Performed By: #### 2 402973, 1152038, 84112649, 4835156 ####[facility] [address] [place] [address] Potassium [Moles/Vol] 3.5 mmol/L Normal 3.5-5.3 [facility] Comment on above: Performed By: #### 2 812614, 7041925, 33264594, 3423681 ####[facility] [address] [place] [address] Sodium [Moles/Vol] 135 mmol/L Normal 135-145 [facility] Comment on above: Performed By: #### 2 491462, 8153883, 66873837, 3265951 ####[address] [address] CBC w/ Auto Diffon Erythrocyte distribution width (RBC) [Ratio] 12.9 % Normal 10.9-14.2 [facility] Comment on above: Performed By: #### 2 927181, 9620401, 43543849, 5540167 ####[address] [place] [address] Hematocrit (Bld) [Volume fraction] 46.4 % High 34.0-46.0 [facility] Comment on above: Performed By: #### 2 538579, 6903621, 12728523, 2551287 ####[address] [place] [address] Hemoglobin (Bld) [Mass/Vol] 15.0 g/dL Normal 12.0-16.0 [facility] Comment on above: Performed By: #### 2 177368, 7471602, 38714049, 7469522 ####[facility] [address] [place] [address] MCH (RBC) [Entitic mass] 28.6 pg Normal 27.0-34.0 [facility] Comment on above: Performed By: #### 2 153974, 9818003, 89799618, 9264654 ####[address] [place] [address] MCHC (RBC) [Mass/Vol] 32.3 g/dL Normal 31.4-36.0 [facility] Comment on above: Performed By: #### 2 083002, 9310043, 94228648, 7006940 ####[address] MCV (RBC) [Entitic vol] 88.5 fL Normal 80.0-100.0 [facility] Comment on above: Performed By: #### 2 940193, 5805611, 19542486, 0463460 ####[address] Platelet mean volume (Bld) [Entitic vol] 7.9 fL Normal 6.4-10.8 [facility] Comment on above: Performed By: #### 2 225285, 3990163, 63491939, 0483563 ####[address] Platelets (Bld) [#/Vol] 300.0 E9/L Normal 150.0-500.0 [facility] Comment on above: Performed By: #### 2 357663, 8617691, 37087745, 6989272 ####[address] [address] RBC (Bld) [#/Vol] 5.2 E12/L Normal 4.3-5.9 [facility] Comment on above: Performed By: #### 2 569432, 4157459, 00819202, 2771395 ####[address] [address] WBC corrected for nucl RBC Auto (Bld) [#/Vol] 5.1 E9/L Normal 4.0-11.0 [facility] Comment on above: Performed By: #### 2 252291, 7997591, 33456671, 5226259 ####[address] [place] [address] CHEMISTRYOrdered By: SYSTEM SYSTEM on 01-31-2023 Anion [...] rate/Area] mL/min/1.73 m2 Normal >=59mL/min/ 1.73 m2 [facility] Chem S Glucose [Mass/Vol] 84 mg/dL Normal [...] Coag CTA Headon 01-31-2023 CTA Head Normal [facility] Consent for Treatmenton 01-13 Consent for Treatment [id number]#1.00CD:12 7 Normal [facility] Discharge Instructionson Discharge Instructions [id number]#1.00CD:1 27 Normal [facility] ED Clinical Summaryon 2022 ED Clinical Summary Normal [facility] ED Note-Physicianon 02-01-20 ED Note-Physician Normal [facility] Comment on above: Result Comment: Elec tronically Signed By: Kristian Guillermo DO.br\Date and Time Signed: 01/31/23 14:00 EDT ED Patient Education Noteon 01-31-2023 ED Patient Education Note Normal [facility] ED Patient Summaryon 023 ED Patient Summary Normal [facility] HEMATOLOGYOrdered By: SYSTEM SYSTEM on 01-31-2023 [...] 3.1 E9/L Normal 2.0 - 7.5 E9/L [facility] HemeAutoSS HEMATOLOGYOrdered By: Janet Reyes on 01-31-2023 [...] Coag (PPP) [Time] 31.3 second(s) Normal 25.1-36.5 [facility] Comment on above: Result Comment: Para [...] the same coagulation reagent and instrumentation as [facility]. Currently there are no coagulation studies available worldwide for children to 14 days, and no normal ranges. Heparin therapeutic range (represented by Anti-Factor Xa activity of 0.2 - 0.4 U/mL) corresponds to PTT of 56.6 - 109.0 sec. Performed By: #### 2 6370596, 03662842 ####[facility] [address] [place] [address] INR Coag (PPP) [Relative time] 1.1 {INR} Invalid Interpretation Code [facility] Comment on above: Result Comment: INR results are specifically intended to assess patients stabilized on long-term Anticoagulation therapy suggested INR?s ?Less Intensive Anticoagulation? 2.0 ? 3.0Conventional Range 3.0 ? 4.5 Performed By: #### 2 3613927, 07220581 ####[facility] [address] [place] [address] PT Coag (PPP) [Time] 12.3 second(s) Normal 9.4-12.5 [facility] Comment on above: Result Comment: 15 [...] the same coagulation reagent and instrumentation as [facility]. Currently there are no coagulation studies available worldwide for children to 14 days, and no normal ranges. Performed By: #### 2 0808145, 88511438 ####[facility] [address] [place] [address] Pre-Arrival Noteon 3 Pre-Arrival Note Normal [facility] SEROLOGYOrdered By: Nova Mccarty on 01-31-2023 Beta hCG Ql Negative (01/31/23 10:14 AM) Normal [facility] Man Sero eGFRon 01-31-2023 GFR/1.73 sq M.predicted among blacks MDRD (S/P/Bld) [Vol rate/Area] mL/min/{1.73_m2} Normal >=59 [facility] Comment on above: Order Comment: Order added by Discern Expert. Result Comment: eGFR is race adjusted. AA=. Performed By: #### 2 182616, 6151514, 00304381, 2005638 ####[facility] [address] [place] [address] GFR/1.73 sq M.predicted among non-blacks MDRD (S/P/Bld) [Vol rate/Area] mL/min/{1.73_m2} Normal >=59 [facility] Comment on above: Order Comment: Order added by Discern Expert. Result Comment: Management Tech lucy kidney disease could be indicated at eGFR's of less than 60 mL/min/1.73m2. Kidney failure is indicated at less than 15 mL/min/1.73m2. Performed By: #### 2 817528, 4602668, 40490156, 7459186 ####[facility] [address] [place] [address] Nursing Assessmenton 023 Nursing Assessment [id number]#1.00CD:1 27 Normal [facility] Coding Summary.on 10-02-2022 Coding Summary. Normal [facility] Coding Summary. Normal [facility] Delivery Summaryon 2 Delivery Summary Normal [facility] Comment on above: Result Comment: Elec tronically Signed By: Fabiana MARION, Luis Carlos Byrd\.br\Date and Time Signed: 09/29/22 09:25 EST General Message Officeon General Message Office Normal [facility] Insurance Correspondence Off iceon 09-28-2022 Insurance Correspondence Office [id number]#1.00CD:1 27 Normal [facility] Discharge Instructionson Discharge Instructions [id number]#1.00CD:12 7 Normal [facility] Inpatient Clinical Summaryon 09-27-2022 Inpatient Clinical Summary Normal [facility] Inpatient Patient Summaryon 09-27-2022 Inpatient Patient Summary Normal [facility] CBC w/Indiceson 09-26-2022 Erythrocyte distribution width (RBC) [Ratio] 13.1 % Normal 10.9-14.2 [facility] Comment on above: Performed By: #### 2 129619 ####[facility] [address] [place] [address] Hematocrit (Bld) [Volume fraction] 32.1 % Low 34.0-46.0 [facility] Comment on above: Performed By: #### 2 762487 ####[facility] [address] [place] [address] Hemoglobin (Bld) [Mass/Vol] 11.1 g/dL Low 12.0-16.0 [facility] Comment on above: Performed By: #### 2 038701 ####[facility] [address] [place] [address] MCH (RBC) [Entitic mass] 30.9 pg Normal 27.0-34.0 [facility] Comment on above: Performed By: #### 2 280582 ####[facility] [address] [place] [address] MCHC (RBC) [Mass/Vol] 34.5 g/dL Normal 31.4-36.0 [facility] Comment on above: Performed By: #### 2 943284 ####[facility] [address] [place] [address] MCV (RBC) [Entitic vol] 89.7 fL Normal 80.0-100.0 [facility] Comment on above: Performed By: #### 2 536642 ####[facility] [address] [place] [address] Platelet mean volume (Bld) [Entitic vol] 10.1 fL Normal 6.4-10.8 [facility] Comment on above: Performed By: #### 2 750986 ####[facility] [address] [place] [address] Platelets (Bld) [#/Vol] 204.0 E9/L Normal 150.0-500.0 [facility] Comment on above: Performed By: #### 2 290682 ####[address] [address] RBC (Bld) [#/Vol] 3.6 E12/L Low 4.3-5.9 [facility] Comment on above: Performed By: #### 2 824750 ####[address] [address] WBC corrected for nucl RBC Auto (Bld) [#/Vol] 23.2 E9/L High 4.0-11.0 [facility] Comment on above: Performed By: #### 2 053595 ####[address] [address] Nursing Assessmenton 022 Nursing Assessment [id number]#1.00CD:12 7 Normal [facility] Progress Note-Physicianon Progress Note-Physician [facility] Comment on above: Result Comment: Elec tronically Signed By: Fabiana MARION, Luis Carlos Byrd\.medina\Date and Time Signed: 09/26/22 08:19 EST Coding Summary.on 09-25-2022 Coding Summary. Normal [facility] Coding Summary. Normal [facility] Consenton 09-25-2022 Consent [id number]#1.00CD:1 27 Normal [facility] Consent for Anesthesiaon Consent for Anesthesia [id number]#1.00CD:12 7 Normal [facility] Discharge Instructionson Discharge Instructions [id number]#1.00CD:1 27 Normal [facility] Help Me Grow Referralon 09-14 Help Me Grow Referral [id number]#1.00CD:12 7 Normal [facility] Recordson Records [id number]#1.00CD:12 7 Normal [facility] Progress Note-Physicianon Progress Note-Physician [facility] Comment on above: Result Comment: Elec tronically Signed By: Jimmy Corcoran Jr., DO\.br\Date and Time Signed: 09/25/22 08:31 EST Progress Note-Physician Normal [facility] Comment on above: Result Comment: Elec tronically Signed By: Jimmy Corcoran Jr., DO\.br\Date and Time Signed: 09/25/22 08:31 EST UA With Cult Reflexon 2021 Bilirubin Ql (U) Negative Normal Negative [facility] Comment on above: Order Comment: Urina ry Catheter Insertion triggered Urinalysis With Culture Reflex order by discern. Performed By: #### 1 7378928 ####[facility] [address] [place] [address] Clarity (U) CLEAR Normal Clear [facility] Comment on above: Order Comment: Urina ry Catheter Insertion triggered Urinalysis With Culture Reflex order by discern. Performed By: #### 1 0057580 ####[facility] [address] [place] [address] Color (U) YELLOW Normal Yellow [facility] Comment on above: Order Comment: Urina ry Catheter Insertion triggered Urinalysis With Culture Reflex order by discern. Performed By: #### 1 5242788 ####[facility] [address] [place] [address] Epithelial cells.squamous LM.HPF (Urine sed) [#/Area] 0-2 Normal 0-2 [facility] Comment on above: Order Comment: Urina ry Catheter Insertion triggered Urinalysis With Culture Reflex order by discern. Performed By: #### 1 7134311 ####[facility] [address] [place] [address] Glucose Test strip (U) [Mass/Vol] Negative Normal Negative [facility] Comment on above: Order Comment: Urina ry Catheter Insertion triggered Urinalysis With Culture Reflex order by discern. Performed By: #### 1 5125605 ####[facility] [address] [place] [address] Hemoglobin Ql (U) Negative Normal Negative [facility] Comment on above: Order Comment: Urina ry Catheter Insertion triggered Urinalysis With Culture Reflex order by discern. Performed By: #### 1 3244965 ####[facility] [address] [place] [address] Ketones (U) [Mass/Vol] Negative Normal Negative [facility] Comment on above: Order Comment: Urina ry Catheter Insertion triggered Urinalysis With Culture Reflex order by discern. Performed By: #### 1 2798722 ####[facility] [address] [place] [address] [place].plasma/[place] .RBC (Bld) [Mass ratio] 0-3 Normal 0-3 [facility] Comment on above: Order Comment: Urina ry Catheter Insertion triggered Urinalysis With Culture Reflex order by discern. Performed By: #### 1 4677751 ####[facility] [address] [place] [address] Nitrite Ql (U) Negative Normal Negative [facility] Comment on above: Order Comment: Urina ry Catheter Insertion triggered Urinalysis With Culture Reflex order by discern. Performed By: #### 1 [id number] ####[facility] [address] [place] [address] pH (U) 7.0 [pH] Invalid Interpretation Code 5.0-9.0 [facility] Comment on above: Order Comment: Urina ry Catheter Insertion triggered Urinalysis With Culture Reflex order by discern. Performed By: #### 1 [id number] ####[address] [address] Protein (U) [Mass/Vol] Negative Normal Negative [facility] Comment on above: Order Comment: Urina ry Catheter Insertion triggered Urinalysis With Culture Reflex order by discern. Performed By: #### 1 [id number] ####[place] [address] Specific gravity (U) [Rel density] <=1.005 Invalid Interpretation Code 1.005-1.030 [facility] Comment on above: Order Comment: Urina ry Catheter Insertion triggered Urinalysis With Culture Reflex order by discern. Performed By: #### 1 [id number] ####[place] [address] Type of Urine collection method Vyas Normal [facility] Comment on above: Order Comment: Urina ry Catheter Insertion triggered Urinalysis With Culture Reflex order by discern. Performed By: #### 1 [id number] ####[place] [address] Urobilinogen Qn (U) 0.2 {Rola'U}/dL Normal 0.0-1.0 [facility] Comment on above: Order Comment: Urina ry Catheter Insertion triggered Urinalysis With Culture Reflex order by discern. Performed By: #### 1 [id number] ####[place] [address] WBC Auto Ql (U) Negative Normal Negative [facility] Comment on above: Order Comment: Urina ry Catheter Insertion triggered Urinalysis With Culture Reflex order by discern. Performed By: #### 1 [id number] ####[place] [address] WBC LM.HPF (Urine sed) [#/Area] 0-5 Normal 0-5 [facility] Comment on above: Order Comment: Urina ry Catheter Insertion triggered Urinalysis With Culture Reflex order by discern. Performed By: #### 1 [id number] ####[address] [place] [address] Bilirubin Ql (U) Negative Normal Negative [facility] Comment on above: Performed By: #### 1 5095886 ####[facility] [address] [place] [address] Clarity (U) CLEAR Normal Clear [facility] Comment on above: Performed By: #### 1 [id number] ####[facility] [address] [place] [address] Color (U) YELLOW Normal Yellow [facility] Comment on above: Performed By: #### 1 [id number] ####[address] [address] Epithelial cells.squamous LM.HPF (Urine sed) [#/Area] 0-2 Normal 0-2 [facility] Comment on above: Performed By: #### 1 7581098 ####[facility] [address] [place] [address] Glucose Test strip (U) [Mass/Vol] Negative Normal Negative [facility] Comment on above: Performed By: #### 1 7736863 ####[facility] [address] [place] [address] Hemoglobin Ql (U) Negative Normal Negative [facility] Comment on above: Performed By: #### 1 7674639 ####[facility] [address] [place] [address] Ketones (U) [Mass/Vol] Negative Normal Negative [facility] Comment on above: Performed By: #### 1 0753625 ####[facility] [address] [place] [address] [place].plasma/[place] .RBC (Bld) [Mass ratio] 0-3 Normal 0-3 [facility] Comment on above: Performed By: #### 1 7950736 ####[facility] [address] [place] [address] Nitrite Ql (U) Negative Normal Negative [facility] Comment on above: Performed By: #### 1 8772109 ####[address] [address] pH (U) 6.0 [pH] Invalid Interpretation Code 5.0-9.0 [facility] Comment on above: Performed By: #### 1 7096684 ####[place] [address] Protein (U) [Mass/Vol] Negative Normal Negative Fi [facility] Comment on above: Performed By: #### 1 2930481 ####[place] [address] Specific gravity (U) [Rel density] <=1.005 Invalid Interpretation Code 1.005-1.030 [facility] Comment on above: Performed By: #### 1 6697435 ####[place] [address] Type of Urine collection method Clean Catch Normal [facility] Comment on above: Performed By: #### 1 1048352 ####[place] [address] Urobilinogen Qn (U) 0.2 {Rola'U}/dL Normal 0.0-1.0 [facility] Comment on above: Performed By: #### 1 6802966 ####[place] [address] WBC Auto Ql (U) Negative Normal Negative [facility] Comment on above: Performed By: #### 1 5286700 ####[place] [address]457 WBC LM.HPF (Urine sed) [#/Area] 0-5 Normal 0-5 [facility] Comment on above: Performed By: #### 1 6640685 ####[address] [address] Vaccinationson 09-25-2022 Vaccinations [id number]#1.00CD:1 27 Normal [facility] Vaccinations [id number]#1.00CD:1 27 Normal [facility] ABO/Rhon 09-24-2022 ABO/Rh Positive Invalid Interpretation Code [facility] Comment on above: Performed By: #### 1 2404560, [id number], [id number], 9701697 ####[facility] [address] [place] [address] ABO/Rh History Checkon 09-24 ABO/Rh History Check Verified Hx Blood Type Normal [facility] Comment on above: Performed By: #### 1 4535093, 05675336, 73774114, 0179709 ####[facility] [address] [place] [address] ABSCon 09-24-2022 ABSC Gel Interp Negative Normal [facility] Comment on above: Performed By: #### 1 1088777, 36612690, 27313484, 8678973 ####[address] [address] Blood Bank ID#on 09-24-2022 BBID# [id number] Invalid Interpretation Code [facility] Comment on above: Performed By: #### 1 1970697, [id number], 44051213, 2512207 ####[place] [address] [place] [address] CBC w/Indiceson 09-24-2022 Erythrocyte distribution width (RBC) [Ratio] 13.0 % Normal 10.9-14.2 [facility] Comment on above: Performed By: #### 2 775099 ####[address] [address] Hematocrit (Bld) [Volume fraction] 38.0 % Normal 34.0-46.0 [facility] Comment on above: Performed By: #### 2 680733 ####[place] [address] [place] [address] Hemoglobin (Bld) [Mass/Vol] 12.8 g/dL Normal 12.0-16.0 [facility] Comment on above: Performed By: #### 2 515282 ####[place] [address] [address] MCH (RBC) [Entitic mass] 31.3 pg Normal 27.0-34.0 [facility] Comment on above: Performed By: #### 2 774339 ####[address] [address] MCHC (RBC) [Mass/Vol] 33.7 g/dL Normal 31.4-36.0 [facility] Comment on above: Performed By: #### 2 097069 ####[address] [address] MCV (RBC) [Entitic vol] 92.9 fL Normal 80.0-100.0 [facility] Comment on above: Performed By: #### 2 290278 ####[address] [address] Platelet mean volume (Bld) [Entitic vol] 9.8 fL Normal 6.4-10.8 [facility] Comment on above: Performed By: #### 2 191390 ####[address] [address] Platelets (Bld) [#/Vol] 238.0 E9/L Normal 150.0-500.0 [facility] Comment on above: Performed By: #### 2 470992 ####[address] [address] RBC (Bld) [#/Vol] 4.1 E12/L Low 4.3-5.9 [facility] Comment on above: Performed By: #### 2 692985 ####[address] [address] WBC corrected for nucl RBC Auto (Bld) [#/Vol] 12.8 E9/L High 4.0-11.0 [facility] Comment on above: Performed By: #### 2 388386 ####[address] [address] Consent for Treatmenton 09-14 Consent for Treatment [id number]#1.00CD:12 7 [facility] Consent for Treatment [id number]#1.00CD:1 27 [facility] Consent for Treatmenton Consent for Treatment [id number]#1.00CD:12 7 [facility] Discharge Instructionson Discharge Instructions [id number]#1.00CD:12 7 [facility] Inpatient Clinical Summaryon 09-22-2022 Inpatient Clinical Summary [facility] Inpatient Patient Summaryon 09-22-2022 Inpatient Patient Summary [facility] Insurance Correspondence Off iceon 09-22-2022 Insurance Correspondence Office [id number]#1.00CD: 127 [facility] Nursing Assessmenton 022 Nursing Assessment [id number]#1.00CD:1 27 [facility] Nursing Assessment [id number]#1.00CD:12 7 [facility] Discharge Instructionson Discharge Instructions [id number]#1.00CD:127 [facility] Inpatient Clinical Summaryon 09-20-2022 Inpatient Clinical Summary [facility] Inpatient Patient Summaryon 09-20-2022 Inpatient Patient Summary [facility] Insurance Correspondence Off iceon 09-20-2022 Insurance Correspondence Office [id number]#1.00CD:127 [facility] Consent for Treatmenton Consent for Treatment [id number]#1.00CD:12 7 [facility] Discharge Instructionson Discharge Instructions [id number]#1.00CD:1 27 Normal [facility] Inpatient Clinical Summaryon 09-19-2022 Inpatient Clinical Summary Normal [facility] Inpatient Patient Summaryon 09-19-2022 Inpatient Patient Summary Normal [facility] Insurance Correspondenceon 1 11-20-2021 Insurance Correspondence [id number]#1.00CD:1 27 Normal [facility] UA With Cult Reflexon 2021 Bilirubin Ql (U) Negative Normal Negative [facility] Comment on above: Performed By: #### 1 [id number] ####[facility] [address] [place] [address] Clarity (U) CLEAR Normal Clear [facility] Comment on above: Performed By: #### 1 3992511 ####[facility] [address] [place] [address] Color (U) YELLOW Normal Yellow [facility] Comment on above: Performed By: #### 1 4447212 ####[facility] [address] [place] [address] Epithelial cells.squamous LM.HPF (Urine sed) [#/Area] 0-2 Normal 0-2 [facility] Comment on above: Performed By: #### 1 1567686 ####[facility] [address] [place] [address] Glucose Test strip (U) [Mass/Vol] Negative Normal Negative [facility] Comment on above: Performed By: #### 1 0156634 ####[facility] [address] [place] [address] Hemoglobin Ql (U) Negative Normal Negative [facility] Comment on above: Performed By: #### 1 6072944 ####[facility] [address] [place] [address] Ketones (U) [Mass/Vol] Negative Normal Negative [facility] Comment on above: Performed By: #### 1 9317508 ####[address] [address] [place].plasma/[place] .RBC (Bld) [Mass ratio] 0-3 Normal 0-3 [facility] Comment on above: Performed By: #### 1 1514125 ####[address] [address] Nitrite Ql (U) Negative Normal Negative [facility] Comment on above: Performed By: #### 1 7897734 ####[address] [address] pH (U) 7.0 [pH] Invalid Interpretation Code 5.0-9.0 [facility] Comment on above: Performed By: #### 1 1197488 ####[address] [address] Protein (U) [Mass/Vol] Negative Normal Negative [facility] Comment on above: Performed By: #### 1 0512961 ####[address] [address] Specific gravity (U) [Rel density] <=1.005 Invalid Interpretation Code 1.005-1.030 [facility] Comment on above: Performed By: #### 1 8253622 ####[address] [address] Type of Urine collection method Clean Catch Normal [facility] Comment on above: Performed By: #### 1 0421212 ####[address] [address] Urobilinogen Qn (U) 0.2 {Rola'U}/dL Normal 0.0-1.0 [facility] Comment on above: Performed By: #### 1 0334526 ####[address] [address] WBC Auto Ql (U) Negative Normal Negative [facility] Comment on above: Performed By: #### 1 2957042 ####[address] [address] WBC LM.HPF (Urine sed) [#/Area] 0-5 Normal 0-5 [facility] Comment on above: Performed By: #### 1 6509515 ####[facility] [address] [place] [address] URINALYSISOrdered By: Jeanette Castle on 09-19-2022 Bilirubin [...] AM) Normal Negative [facility] UA Auto SS [place].plasma/[place] .RBC (Bld) [Mass ratio] 0-3 /HPF Normal [...] [facility] UA Auto SS Urobilinogen Qn (U) 0.4951647 {Rola'U}/dL Normal 0.0 - 1.0 EU/dL [facility] UA Auto SS WBC Auto Ql (U) Negative (09/19/22 1:44 AM) Normal Negative [facility] UA Auto SS WBC LM.HPF (Urine sed) [#/Area] 0-5 /HPF Normal 0-5/HPF [facility] UA Auto SS Coding Summary.on 09-18-2022 Coding Summary. Normal [facility] Nursing Assessmenton Nursing Assessment [id number]#1.00CD:12 7 Normal [facility] Coding Summary.on 09-15-2022 Coding Summary. Normal [facility] Coding Summary.on 09-14-2022 Coding Summary. Normal [facility] Consent for Treatmenton Consent for Treatment [id number]#1.00CD:12 7 [facility] Consent for Treatment [id number]#1.00CD:12 7 Normal [facility] Discharge Instructionson Discharge Instructions [id number]#1.00CD:12 7 Normal [facility] Inpatient Clinical Summaryon 09-14-2022 Inpatient Clinical Summary Normal [facility] Inpatient Patient Summaryon 09-14-2022 Inpatient Patient Summary [facility] Insurance Correspondence Off iceon 09-14-2022 Insurance Correspondence Office [id number]#1.00CD:12 7 Normal [facility] Nursing Assessmenton Nursing Assessment [id number]#1.00CD:1 27 Normal [facility] UA With Cult Reflexon 2021 Bacteria LM Ql (Urine sed) TRACE Normal Trace [facility] Comment on above: Performed By: #### 1 [id number] ####[facility] [address] [place] [address] Bilirubin Ql (U) Negative Normal Negative [facility] Comment on above: Performed By: #### 1 6562921 ####[facility] [address] [place] [address] Clarity (U) CLEAR Normal Clear [facility] Comment on above: Performed By: #### 1 2360272 ####[facility] [address] [place] [address] Color (U) YELLOW Normal Yellow [facility] Comment on above: Performed By: #### 1 5916938 ####[facility] [address] [place] [address] Crystals LM Ql (Urine sed) Present Normal [facility] Comment on above: Performed By: #### 1 4118030 ####[address] [address] Epithelial cells.squamous LM.HPF (Urine sed) [#/Area] 0-2 Normal 0-2 [facility] Comment on above: Performed By: #### 1 8161650 ####[facility] [address] [place] [address] Glucose Test strip (U) [Mass/Vol] Negative Normal Negative [facility] Comment on above: Performed By: #### 1 0787146 ####[facility] [address] [place] [address] Hemoglobin Ql (U) Negative Normal Negative [facility] Comment on above: Performed By: #### 1 5186103 ####[facility] [address] [place] [address] Ketones (U) [Mass/Vol] Negative Normal Negative [facility] Comment on above: Performed By: #### 1 9607504 ####[facility] [address] [place] [address] [place].plasma/[place] .RBC (Bld) [Mass ratio] 0-3 Normal 0-3 [facility] Comment on above: Performed By: #### 1 0546320 ####[facility] [address] [place] [address] Mucus Ql (Urine sed) TRACE Normal [facility] Comment on above: Performed By: #### 1 6994272 ####[place] [address] [address] Nitrite Ql (U) Negative Normal Negative [facility] Comment on above: Performed By: #### 1 8804703 ####[address] [address] pH (U) 6.0 [pH] Invalid Interpretation Code 5.0-9.0 [facility] Comment on above: Performed By: #### 1 1048221 ####[place] [address] Protein (U) [Mass/Vol] Negative Normal Negative [facility] Comment on above: Performed By: #### 1 6194982 ####[place] [address] Specific gravity (U) [Rel density] <=1.005 Invalid Interpretation Code 1.005-1.030 [facility] Comment on above: Performed By: #### 1 2137026 ####[place] [address] Type of Urine collection method Random Urine Normal [facility] Comment on above: Performed By: #### 1 7112823 ####[place] [address] Urobilinogen Qn (U) 0.2 {Rola'U}/dL Normal 0.0-1.0 [facility] Comment on above: Performed By: #### 1 3364188 ####[place] [address] WBC Auto Ql (U) TRACE Abnormal Negative [facility] Comment on above: Performed By: #### 1 2200443 ####[address] [address] WBC LM.HPF (Urine sed) [#/Area] 0-5 Normal 0-5 [facility] Comment on above: Performed By: #### 1 2457431 ####[address] [address] URINALYSISOrdered By: An Lassiter on 09-14-2022 Bacteria [...] AM) Normal Negative [facility] UA Auto SS [place].plasma/[place] .RBC (Bld) [Mass ratio] 0-3 /HPF Normal [...] [facility] UA Auto SS Urobilinogen Qn (U) 0.7353653 {Rola'U}/dL Normal 0.0 - 1.0 EU/dL [facility] UA Auto SS WBC Auto Ql (U) Trace *ABN* (09/14/22 9:25 AM) Invalid Interpretation Code Negative [facility] UA Auto SS WBC LM.HPF (Urine sed) [#/Area] 0-5 /HPF Normal 0-5/HPF [facility] UA Auto SS Coding Summary.on 09-12-2022 Coding Summary. Normal [facility] Consent for Treatmenton 08-16 Consent for Treatment [id number]#1.00CD:12 7 Normal [facility] Discharge Instructionson Discharge Instructions [id number]#1.00CD:12 7 [facility] Discharge Instructions [id number]#1.00CD:1 27 Normal [facility] Inpatient Clinical Summaryon 09-12-2022 Inpatient Clinical Summary Normal [facility] Inpatient Patient Summaryon 09-12-2022 Inpatient Patient Summary Normal [facility] Insurance Correspondenceon 11-12-2021 Insurance Correspondence [id number]#1.00CD:12 7 [facility] Insurance Correspondence Off iceon 09-12-2022 Insurance Correspondence Office [id number]#1.00CD:1 27 Normal [facility] Nursing Assessmenton 022 Nursing Assessment [id number]#1.00CD:1 27 Normal [facility] UA With Cult Reflexon 2021 Bilirubin Ql (U) Negative Normal Negative [facility] Comment on above: Performed By: #### 1 7730922 ####[facility] [address] [place] [address] Clarity (U) CLEAR Normal Clear [facility] Comment on above: Performed By: #### 1 0093859 ####[facility] [address] [place] [address] Color (U) YELLOW Normal Yellow [facility] Comment on above: Performed By: #### 1 4142542 ####[facility] [address] [place] [address] Crystals LM Ql (Urine sed) Present Normal [facility] Comment on above: Performed By: #### 1 5999528 ####[place] [address] [place] [address] Epithelial cells.squamous LM.HPF (Urine sed) [#/Area] 3-4 Normal 0-2 [facility] Comment on above: Performed By: #### 1 8100572 ####[facility] [address] [place] [address] Glucose Test strip (U) [Mass/Vol] Negative Normal Negative [facility] Comment on above: Performed By: #### 1 8649061 ####[address] [address] Hemoglobin Ql (U) Negative Normal Negative [facility] Comment on above: Performed By: #### 1 5448364 ####[facility] [address] [place] [address] Ketones (U) [Mass/Vol] Negative Normal Negative [facility] Comment on above: Performed By: #### 1 3224125 ####[facility] [address] [place] [address] [place].plasma/[place] .RBC (Bld) [Mass ratio] 0-3 Normal 0-3 [facility] Comment on above: Performed By: #### 1 6698978 ####[facility] [address] [place] [address] Nitrite Ql (U) Negative Normal Negative [facility] Comment on above: Performed By: #### 1 3353778 ####[place] [address] [place] [address] pH (U) 6.0 [pH] Invalid Interpretation Code 5.0-9.0 [facility] Comment on above: Performed By: #### 1 3424499 ####[facility] [address] [place] [address] Protein (U) [Mass/Vol] Negative Normal Negative [facility] Comment on above: Performed By: #### 1 8598306 ####[facility] [address] [place] [address] Specific gravity (U) [Rel density] 1.010 Invalid Interpretation Code 1.005-1.030 [facility] Comment on above: Performed By: #### 1 4812590 ####[facility] [address] [place] [address] Type of Urine collection method Clean Catch Normal [facility] Comment on above: Performed By: #### 1 8988248 ####[facility] [address] [place] [address] Urobilinogen Qn (U) 0.2 {Rola'U}/dL Normal 0.0-1.0 [facility] Comment on above: Performed By: #### 1 7616015 ####[place] [address] WBC Auto Ql (U) Negative Normal Negative [facility] Comment on above: Performed By: #### 1 8708296 ####[facility] [address] [place] [address] WBC LM.HPF (Urine sed) [#/Area] 0-5 Normal 0-5 [facility] Comment on above: Performed By: #### 1 4027848 ####[facility] [address] [place], [place] [address] URINALYSISOrdered By: Jose Miguel nelson on 09-12-2022 [...] PM) Normal Negative [facility] UA Auto SS [place].plasma/[place] .RBC (Bld) [Mass ratio] 0-3 /HPF Normal [...] [facility] UA Auto SS Urobilinogen Qn (U) 0.6812153 {Rola'U}/dL Normal 0.0 - 1.0 EU/dL [facility] UA Auto SS WBC Auto Ql (U) Negative (09/12/22 8:15 PM) Normal Negative [facility] UA Auto SS WBC LM.HPF (Urine sed) [#/Area] 0-5 /HPF Normal 0-5/HPF [facility] UA Auto SS Coding Summary.on 09-11-2022 Coding Summary. Normal [facility] Consent for Treatmenton 08-16 Consent for Treatment [id number]#1.00CD:12 7 Normal [facility] Discharge Instructionson Discharge Instructions [id number]#1.00CD:1 27 Normal [facility] Inpatient Clinical Summaryon 09-08-2022 Inpatient Clinical Summary Normal [facility] Inpatient Patient Summaryon 09-08-2022 Inpatient Patient Summary Normal [facility] Coding Summary.on 09-06-2022 Coding Summary. Normal [facility] Discharge Instructionson Discharge Instructions [id number]#1.00CD:1 27 Normal [facility] ED Clinical Summaryon 2021 ED Clinical Summary Normal [facility] ED Note-Nursingon 09-06-2022 ED Note-Nursing pt given d/c instruc tions and educated on importance of follow up. pt educated on new medications. pt verbalized understanding of instructions and readiness for d/c. pt walked self ambulatory to waiting room in stable condition Normal [facility] ED Patient Education Noteon 09-06-2022 ED Patient Education Note Normal [facility] ED Patient Summaryon 022 ED Patient Summary Normal [facility] XR Chest Single Viewon 09-06 XR Chest Single View Normal [facility] Auto Diffon 09-05-2022 Basophils/100 WBC (Bld) 1.0 % Normal 0.0-2.0 [facility] Comment on above: Order Comment: Order Added by Discern Expert. Performed By: #### 2 429778, [id number], 70676117, 7388016, 88960171, 86160263, 3718484 ####[facility] [address] [place] [address] Basophils/Leukocytes Auto (Bld) [Pure # fraction] 0.1 E9/L Normal 0.0-0.2 [facility] Comment on above: Order Comment: Order Added by Discern Expert. Performed By: #### 2 918493, [id number], 89157379, 1565541, 25245974, 24983544, 7760216 ####[facility] [address] [place] [address] Eosinophils/100 WBC (Bld) 1.4 % Normal 0.0-8.0 [facility] Comment on above: Order Comment: Order Added by Discern Expert. Performed By: #### 2 964904, 88227493, 00483487, 0043397, 41461575, 90098019, 2349386 ####[facility] [address] [place] [address] Eosinophils/Leukocytes Auto (Bld) [Pure # fraction] 0.2 E9/L Normal 0.0-0.5 [facility] Comment on above: Order Comment: Order Added by Discern Expert. Performed By: #### 2 984924, 41538125, 26631258, 7890995, 09953886, 81687412, 1160261 ####[address] [place] [address] Lymphocytes/100 WBC (Bld) 18.8 % Normal 14.0-50.0 [facility] Comment on above: Order Comment: Order Added by Discern Expert. Performed By: #### 2 360697, 60296617, 75703308, 4857494, 70562615, 89634955, 7918504 ####[address] [address] Lymphocytes/Leukocytes Auto (Bld) [Pure # fraction] 2.0 E9/L Normal 1.0-4.0 [facility] Comment on above: Order Comment: Order Added by Discern Expert. Performed By: #### 2 564739, 81802214, 10103117, 4953902, 86516336, 49350034, 1669719 ####[address] [place] [address] Monocytes/100 WBC (Bld) 6.8 % Normal 4.0-14.0 [facility] Comment on above: Order Comment: Order Added by Discern Expert. Performed By: #### 2 750674, 60979179, 93006788, 9883356, 39525684, 78944786, 5092077 ####[address] [address] Monocytes/Leukocytes Auto (Bld) [Pure # fraction] 0.7 E9/L Normal 0.2-1.0 [facility] Comment on above: Order Comment: Order Added by Discern Expert. Performed By: #### 2 884330, 09806890, 14217519, 8246290, 75494003, 84723813, 9976825 ####[facility] [address] [place] [address] Neutrophils/100 WBC (Bld) 72.0 % Normal 36.0-75.0 [facility] Comment on above: Order Comment: Order Added by Discern Expert. Performed By: #### 2 162354, 03413409, 65900484, 6216463, 03559884, 12566574, 3242755 ####[facility] [address] [place] [address] Neutrophils/Leukocytes Auto (Bld) [Pure # fraction] 7.8 E9/L High 2.0-7.5 [facility] Comment on above: Order Comment: Order Added by Discern Expert. Performed By: #### 2 011468, 48191529, 04728579, 7021866, 55163897, 68728031, 1282135 ####[facility] [address] [place] [address] BMPon 09-05-2022 Creatinine [Mass/Vol] 0.7 mg/dL Normal 0.5-1.3 [facility] Comment on above: Performed By: #### 2 450747, 54910203, 30724303, 2357472, 78155821, 35264261, 4755942 ####[facility] [address] [place] [address] Urea nitrogen [Mass/Vol] 7 mg/dL Normal 5-21 [facility] Comment on above: Performed By: #### 2 027247, 67629651, 06524268, 0194877, 81595272, 32493350, 1615747 ####[facility] [address] [place] [address] Urea nitrogen/Creatinine [Mass ratio] 10 No Units Normal 10-20 [facility] Comment on above: Performed By: #### 2 630351, 40395958, 73807936, 6769178, 48004737, 71475301, 8035082 ####[facility] [address] [place] [address] Anion gap [Moles/Vol] 10 mmol/L Normal 6-16 [facility] Comment on above: Performed By: #### 2 033596, 18202444, 78475962, 4481676, 50701869, 48010439, 7188591 ####[facility] [address] [place] [address] Calcium [Mass/Vol] 8.8 mg/dL Low 8.9-11.1 [facility] Comment on above: Performed By: #### 2 711068, 29305933, 06616863, 1152520, 82839352, 46419686, 0435012 ####[facility] [address] [place] [address] Chloride [Moles/Vol] 102 mmol/L Normal 101-111 [facility] Comment on above: Performed By: #### 2 882898, 75360717, 65977198, 5129923, 23749735, 92990938, 4698344 ####[facility] [address] [place] [address] CO2 [Moles/Vol] 22 mmol/L Normal 21-31 [facility] Comment on above: Performed By: #### 2 453426, 02018461, 46299450, 1529374, 04902528, 62777100, 8120366 ####[facility] [address] [place] [address] Glucose [Mass/Vol] 87 mg/dL Normal 55-199 [facility] Comment on above: Result Comment: If t his glucose result represents a fasting glucose, interpretation should refer to the following reference range: 55-99 mg/dL Performed By: #### 2 433507, 03876473, 09314092, 9581703, 51810036, 56636940, 7684797 ####[facility] [address] [facility] [place] [address] Potassium [Moles/Vol] 3.3 mmol/L Low 3.5-5.3 [facility] Comment on above: Performed By: #### 2 131198, 66993968, 30288233, 7644852, 70779719, 92834186, 8842120 ####[facility] [address] [place] [address] Sodium [Moles/Vol] 131 mmol/L Low 135-145 [facility] Comment on above: Performed By: #### 2 394686, 29648438, 36393067, 6830591, 93572964, 18890249, 7172478 ####[facility] [address] [place] [address] BNPon 09-05-2022 Int Ctr BNP Pass Normal [facility] Comment on above: Performed By: #### 2 509501, 19273916, 31736852, 7339832, 44547685, 01008840, 6093895 ####[facility] [address] [place] [address] Natriuretic peptide B (Bld) [Mass/Vol] 8 pg/mL Normal 5-80 [facility] Comment on above: Performed By: #### 2 528489, 59735899, 80283222, 9358137, 94955134, 63886255, 8190797 ####[facility] [address] [place] [address] CBC w/ Auto Diffon Erythrocyte distribution width (RBC) [Ratio] 12.7 % Normal 10.9-14.2 [facility] Comment on above: Performed By: #### 2 898673, 00278829, 11074661, 4460399, 16962022, 23326882, 4731668 ####[facility] [address] [place] [address] Hematocrit (Bld) [Volume fraction] 34.2 % Normal 34.0-46.0 [facility] Comment on above: Performed By: #### 2 797447, 72915364, 50690304, 0533106, 44441381, 23361523, 8426065 ####[address] [address] Hemoglobin (Bld) [Mass/Vol] 12.3 g/dL Normal 12.0-16.0 [facility] Comment on above: Performed By: #### 2 708432, 27178351, 01147212, 9607638, 67851610, 16666776, 3612268 ####[address] [address] MCH (RBC) [Entitic mass] 31.8 pg Normal 27.0-34.0 [facility] Comment on above: Performed By: #### 2 767535, 78560795, 55569125, 2920647, 64656049, 00908326, 6051607 ####[address] [address] MCHC (RBC) [Mass/Vol] 35.9 g/dL Normal 31.4-36.0 [facility] Comment on above: Performed By: #### 2 291041, 97161604, 00806555, 2460844, 81701635, 73739523, 8109418 ####[address] [address] MCV (RBC) [Entitic vol] 88.7 fL Normal 80.0-100.0 [facility] Comment on above: Performed By: #### 2 340734, 87093122, 85444771, 5131106, 84761013, 87767591, 7135460 ####[address] [address] Platelet mean volume (Bld) [Entitic vol] 9.8 fL Normal 6.4-10.8 [facility] Comment on above: Performed By: #### 2 712623, 82990511, 04098448, 6508417, 69113978, 97088433, 5310324 ####[address] [address] Platelets (Bld) [#/Vol] 215.0 E9/L Normal 150.0-500.0 [facility] Comment on above: Performed By: #### 2 540447, 30022479, 61272779, 5025592, 67549033, 77390184, 3290795 ####[facility] [address] [place] [address] RBC (Bld) [#/Vol] 3.9 E12/L Low 4.3-5.9 [facility] Comment on above: Performed By: #### 2 887049, 57496244, 29254574, 3846396, 26054759, 48409352, 7952980 ####[facility] [address] [place] [address] WBC corrected for nucl RBC Auto (Bld) [#/Vol] 10.9 E9/L Normal 4.0-11.0 [facility] Comment on above: Result Comment: Slid e reviewed by ts. Performed By: #### 2 910556, 67597460, 57134246, 7548526, 95191587, 20508379, 3555081 ####[facility] [address] [place] [address] CHEMISTRYOrdered By: SYSTEM SYSTEM on 09-05-2022 Anion gap [Moles/Vol] 10 mmol/L Normal 6 - 16 mEq/L [facility] Remisol Calcium [Mass/Vol] [...] rate/Area] mL/min/1.73 m2 Normal >=59mL/min/ 1.73 m2 [facility] Chem S Glucose [Mass/Vol] 87 mg/dL Normal 55 - 199 mg/dL [facility] Remisol Potassium [Moles/Vol] 3.3 mmol/L Low 3.5 - 5.3 mmol/L [facility] Remisol Sodium [Moles/Vol] 131 mmol/L Low 135 - 145 mmol/L [facility] Remisol Troponin I.cardiac [Mass/Vol] 4.70 pg/mL Low 10.10 - 27.10 pg/mL [facility] Remisol Urea nitrogen [Mass/Vol] 7 mg/dL Normal 5 - 21 mg/dL [facility] Remisol Urea nitrogen/Creatinine [Mass ratio] 10 mg/mg Normal 10 - 20 [facility] Remisol CHEMISTRYOrdered By: Temi hayden on 09-05-2022 Natriuretic peptide B (Bld) [Mass/Vol] 8 pg/mL Normal 5 - 80 pg/mL [facility] HemeManSS COAGULATIONOrdered By: Yamile Li on 09-05-2022 aPTT Coag (PPP) [Time] 27.1 s Normal 25.1 - 36.5 second(s) [facility] Auto Coag INR Coag (PPP) [Relative time] 0.9 {INR} Invalid Interpretation Code [facility] Auto Coag PT Coag (PPP) [Time] 10.3 s Normal 9.4 - 1 2.5 second(s) [facility] Auto Coag Consent for Treatmenton 08-16 Consent for Treatment [id number]#1.00CD:12 7 Normal [facility] ED Note-Nursingon 09-05-2022 ED Note-Nursing Normal [facility] ED Note-Physicianon 09-05-20 ED Note-Physician Normal [facility] Comment on above: Result Comment: Elec tronically Signed By: Gopi Rodriguez DO\brandi\Date and Time Signed: 09/05/22 21:46 EST Group B Strep by PCRon 09-05 Group B Strep colonization by PCR Negative Normal Negative [facility] Comment on above: Performed By: #### 4 [id number] ####[facility] [address] [place] [address] HEMATOLOGYOrdered By: SYSTEM SYSTEM on 09-05-2022 Basophils/100 [...] Coag (PPP) [Time] 27.1 second(s) Normal 25.1-36.5 [facility] Comment on above: Result Comment: Para [...] the same coagulation reagent and instrumentation as [facility]. Currently there are no coagulation studies available worldwide for children to 14 days, and no normal ranges. Heparin therapeutic range (represented by Anti-Factor Xa activity of 0.2 - 0.4 U/mL) corresponds to PTT of 56.6 - 109.0 sec. Performed By: #### 2 449344, 00264435, 99870378, 1143271, 37276977, 58739451, 0172595 ####[facility] [address] [place] [address] INR Coag (PPP) [Relative time] 0.9 {INR} Invalid Interpretation Code [facility] Comment on above: Result Comment: INR results are specifically intended to assess patients stabilized on long-term Anticoagulation therapy suggested INR?s ?Less Intensive Anticoagulation? 2.0 ? 3.0Conventional Range 3.0 ? 4.5 Performed By: #### 2 602594, 19705338, 27058758, 2196259, 35545242, 72082963, 5928219 ####[facility] [address] [place] [address] PT Coag (PPP) [Time] 10.3 second(s) Normal 9.4-12.5 [facility] Comment on above: Result Comment: 15 [...] the same coagulation reagent and instrumentation as [facility]. Currently there are no coagulation studies available worldwide for children to 14 days, and no normal ranges. Performed By: #### 2 680847, 05513934, 37493284, 7561096, 82312013, 47605794, 5981835 ####[facility] [address] [place] [address] Rapid COVID Antigen ([facility])on 09-05-2022 Rapid COV Int NEG Ctl Pass Normal [facility] Comment on above: Performed By: #### 2 [id number] ####[facility] [address] [place] [address] Rapid COV Int POS Ctl Pass Normal [facility] Comment on above: Performed By: #### 2 [id number] ####[address] [place] [address] SARS-CoV+SARS-CoV-2 (COVID-19) Ag IA.rapid Ql (Resp) Detected Abnormal Not Detected [facility] Comment on above: Result Comment: Resu lts Called To Berna Cook RN/ER By AGNIESZKA And Read Back For Confirmation On 09/05/2022 21:14:20 ESTResults Verified By Repeat AnalysisThe payever? System for Rapid Detection of SARS-CoV-2 is [...] or revoked sooner. Performed By: #### 2 [id number] ####[place] [address] ADMITTED TO INTENSIVE CARE UNIT FOR CONDITION OF INTEREST:FIND:PT: NO Normal [facility] Comment on above: Performed By: #### 2 [id number] ####[place] [address] EMPLOYED IN A HEALTHCARE SETTING:FIND:PT: NO Normal [facility] Comment on above: Performed By: #### 2 [id number] ####[place] [address] FIRST TEST FOR CONDITION OF INTEREST:FIND:PT: YES Normal [facility] Comment on above: Performed By: #### 2 [id number] ####[place] [address] HAS SYMPTOMS RELATED TO CONDITION OF INTEREST:FIND:PT: YES Normal [facility] Comment on above: Performed By: #### 2 [id number] ####[address] HOSPITALIZED FOR CONDITION OF INTEREST:FIND:PT: NO Normal [facility] Comment on above: Performed By: #### 2 [id number] ####[address] [address] STATUS:FIND:PT: NO Normal [facility] Comment on above: Performed By: #### 2 [id number] ####[place] [address] [address] RESIDES IN A CONGREGATE CARE SETTING:FIND:PT: NO Normal [facility] Comment on above: Performed By: #### 2 862092299 ####[address] [place] [address] Troponin 0 Hr.on 09-05-2022 Troponin I.cardiac [Mass/Vol] 4.70 pg/mL Low 10.10-27.10 [facility] Comment on above: Result Comment: The 95% CI (Confidence Interval) PPV (Positive Predictive Value) for myocardial infarction in females is 38 pg/mL, in males 51 pg/mL. The results should be used in conjunction with clinical conditions of myocardial infarction.(Access High Sensitivity Troponin I Instructions For Use, [email or web address], May 2018) Performed By: #### 2 538979, 41699846, 20002406, 2183968, 75183632, 02365001, 1829526 ####[address] [place] [address] eGFRon 09-05-2022 GFR/1.73 sq M.predicted among blacks MDRD (S/P/Bld) [Vol rate/Area] mL/min/{1.73_m2} Normal >=59 [facility] Comment on above: Order Comment: Order added by Discern Expert. Result Comment: eGFR is race adjusted. AA=. Performed By: #### 2 233592, 63522181, 08362607, 2415574, 92941104, 09152267, 2442813 ####[facility] [address] [place] [address] GFR/1.73 sq M.predicted among non-blacks MDRD (S/P/Bld) [Vol rate/Area] mL/min/{1.73_m2} Normal >=59 [facility] Comment on above: Order Comment: Order added by Discern Expert. Result Comment: Management Tech lucy kidney disease could be indicated at eGFR's of less than 60 mL/min/1.73m2. Kidney failure is indicated at less than 15 mL/min/1.73m2. Performed By: #### 2 933680, 90783464, 70757819, 7033415, 99985010, 27982669, 0002566 ####[address] [place] [address] Coding Summary.on 09-04-2022 Coding Summary. Normal [facility] Nursing Assessmenton 022 Nursing Assessment [id number]#1.00CD:1 27 Normal [facility] Physician Orderon 09-04-2022 Physician Order [id number]#1.00CD:1 27 Normal [facility] ABO/Rhon 08-31-2022 ABO/Rh Positive Invalid Interpretation Code [facility] Comment on above: Performed By: #### 1 2829565, 8957310, 61431755, 31526016 ####[address] [address] ABO/Rh History Checkon 08-31 ABO/Rh History Check Verified Hx Blood Type Normal [facility] Comment on above: Performed By: #### 1 2426116, 5037601, 77706436, 03484040 ####[address] [address] ABSCon 08-31-2022 ABSC Gel Interp Negative Normal [facility] Comment on above: Performed By: #### 1 3907574, 8153641, 02885862, 81150705 ####[address] [place] [address] BUNon 08-31-2022 Urea nitrogen [Mass/Vol] 8 mg/dL Normal 03-04 [facility] Comment on above: Performed By: #### 2 691759, 8358297, 42357196, 8673034, 46670715, 0759930, 1331674, 3082583, 0495884, 9667863, 87219131 ####[address] [place] [address] Blood Bank ID#on 08-31-2022 BBID# [id number] Invalid Interpretation Code [facility] Comment on above: Performed By: #### 1 0094000, 5274447, 56940122, 53134174 ####[facility] [address] [place] [address] CBC w/Indiceson 08-31-2022 Erythrocyte distribution width (RBC) [Ratio] 12.9 % Normal 10.9-14.2 [facility] Comment on above: Performed By: #### 2 925878, 3593786, 21049627, 2994515, 38423050, 2812032, 6551202, 1633876, 5225820, 4360949, 89786764 ####[facility] [address] [place] [address] Hematocrit (Bld) [Volume fraction] 35.0 % Normal 34.0-46.0 [facility] Comment on above: Performed By: #### 2 622204, 5100809, 27671523, 3251542, 96865906, 1132445, 4666174, 9694030, 2678010, 9643436, 16944727 ####[facility] [address] [place] [address] Hemoglobin (Bld) [Mass/Vol] 12.0 g/dL Normal 12.0-16.0 [facility] Comment on above: Performed By: #### 2 111338, 0174269, 82851967, 0544835, 06071823, 5494113, 9216662, 0243067, 9048800, 9824353, 49799311 ####[facility] [address] [place] [address] MCH (RBC) [Entitic mass] 30.7 pg Normal 27.0-34.0 [facility] Comment on above: Performed By: #### 2 869631, 5215305, 52645251, 4208781, 23241213, 6723883, 0465243, 7143588, 1698618, 5730504, 21234867 ####[facility] [address] [place] [address] MCHC (RBC) [Mass/Vol] 34.4 g/dL Normal 31.4-36.0 [facility] Comment on above: Performed By: #### 2 817289, 4846839, 20167182, 4719338, 77928618, 9742474, 3430725, 6747782, 5550552, 0243407, 17723433 ####[facility] [address] [place] [address] MCV (RBC) [Entitic vol] 89.5 fL Normal 80.0-100.0 [facility] Comment on above: Performed By: #### 2 434892, 4865424, 03546467, 6678492, 61253840, 3204930, 4044809, 2629418, 0357302, 1952427, 95635616 ####[facility] [address] [place] [address] Platelet mean volume (Bld) [Entitic vol] 9.8 fL Normal 6.4-10.8 [facility] Comment on above: Performed By: #### 2 483415, 4507014, 63282930, 2741506, 24356885, 3729470, 4247288, 0485291, 7717911, 8667401, 69737094 ####[facility] [address] [place] [address] Platelets (Bld) [#/Vol] 234.0 E9/L Normal 150.0-500.0 [facility] Comment on above: Performed By: #### 2 694472, 4279964, 29072750, 4331934, 26590133, 9159965, 8616436, 7112216, 5396763, 4318657, 93773766 ####[facility] [address] [place] [address] RBC (Bld) [#/Vol] 3.9 E12/L Low 4.3-5.9 [facility] Comment on above: Performed By: #### 2 116507, 0484118, 27218365, 3420238, 91568181, 2777046, 5207687, 9350033, 2816305, 8841171, 05216589 ####[facility] [address] [place] [address] WBC corrected for nucl RBC Auto (Bld) [#/Vol] 12.6 E9/L High 4.0-11.0 [facility] Comment on above: Performed By: #### 2 667057, 7483234, 50444824, 7415225, 79474899, 0600840, 2967149, 0886762, 7789614, 6108840, 42025077 ####[address] [place] [address] Creatinineon 08-31-2022 Creatinine [Mass/Vol] 0.7 mg/dL Normal 0.5-1.3 [facility] Comment on above: Performed By: #### 2 211661, 5496338, 01738699, 8869740, 73036423, 0073703, 5163929, 1745264, 4221420, 2691267, 60475120 ####[address] [place] [address] Discharge Instructionson Discharge Instructions [id number]#[id number]:12 7 Normal [facility] Ethanolon 08-31-2022 Ethanol [Mass/Vol] mg/dL Normal <=7 [facility] Comment on above: Performed By: #### 2 810594 ####[address] [place] [address] FSPon 08-31-2022 Fibrin+Fibrinogen fragments (S) [Mass/Vol] <10 Normal <10 [facility] Comment on above: Performed By: #### 2 195068, 3280595, 31459869, 9076675, 86200332, 2142446, 6436846, 8400807, 9441236, 4595269, 57864997 ####[facility] [address] [place] [address] Stainon 08-31-2022 FMHV 0 mL Invalid Interpretation Code [facility] Comment on above: Performed By: #### 2 973798, 2496774, 78912469, 3656107, 57889414, 7632625, 7061483, 2389474, 2964249, 1555744, 33212120 ####[facility] [address] [place] [address] Negative Control Negative Normal [facility] Comment on above: Performed By: #### 2 809120, 1026149, 85595561, 0051802, 28238772, 1895284, 7753067, 3275243, 2942027, 5825139, 32280212 ####[facility] [address] [place] [address] Fibrinogenon 08-31-2022 Fibrinogen Coag (PPP) [Mass/Vol] 406 mg/dL High 200-393 [facility] Comment on above: Performed By: #### 2 094157, 8559850, 99373953, 8708793, 82344219, 8543506, 3966111, 9390401, 5175099, 4488152, 07770450 ####[facility] [address] [place] [address] Hep Func Panelon 08-31-2022 Bilirubin.indirect [Mass or moles/Vol] UTC Abnormal 0.1-0.9 [facility] Comment on above: Result Comment: Resu lt verified by Discern Rule. Performed result UTC (Unable to Calculate) was sent as an Alpha code due the inability to calculate a valid numeric value. Performed By: #### 2 498497, 8999179, 96418404, 1181875, 59241795, 6856520, 3075658, 5553229, 7361374, 3040660, 72779216 ####[facility] [address] [place] [address] Albumin [Mass/Vol] 2.8 g/dL Low 3.3-5.0 [facility] Comment on above: Performed By: #### 2 811356, 6962079, 37435749, 2745744, 84195641, 8718529, 5799806, 4325200, 5836857, 6557440, 93228404 ####[facility] [address] [place] [address] Albumin/Globulin (S) [Mass conc ratio] 0.7 Low 1.1-2.2 [facility] Comment on above: Performed By: #### 2 486446, 4946505, 21662033, 9431818, 25198685, 9152839, 2477554, 9642828, 7237239, 9446061, 09093076 ####[address] [place] [address] ALP [Catalytic activity/Vol] 80 Int._Unit/L Normal 21-98 [facility] Comment on above: Performed By: #### 2 902305, 5703854, 61352199, 6564759, 94711067, 4438999, 7500523, 5880129, 4954558, 0989026, 29577937 ####[address] [place] [address] ALT No additional P-5'-P [Catalytic activity/Vol] 10 Int._Unit/L Normal 6-46 [facility] Comment on above: Performed By: #### 2 430256, 9396831, 48638699, 4776282, 78493454, 6692210, 6916460, 0345375, 0632746, 6043870, 58715079 ####[facility] [address] [place] [address] AST [Catalytic activity/Vol] 16 Int._Unit/L Normal 5-43 [facility] Comment on above: Performed By: #### 2 368438, 4729360, 22098336, 8953267, 83823450, 1910614, 1061314, 1630150, 7433668, 0293527, 24942887 ####[facility] [address] [place] [address] Bilirubin [Mass/Vol] 0.1 mg/dL Normal 0.0-1.1 [facility] Comment on above: Performed By: #### 2 627975, 7041028, 95907328, 2984657, 19104773, 1650871, 3517690, 6146996, 9844938, 5407082, 65169458 ####[facility] [address] [place] [address] Bilirubin.direct [Mass/Vol] mg/dL Normal 0.1-0.4 [facility] Comment on above: Performed By: #### 2 119295, 5190495, 99214809, 4510570, 33717388, 1843849, 8938497, 6483185, 3510800, 7943523, 76407619 ####[facility] [address] [place] [address] Globulin (S) [Mass/Vol] 3.8 g/dL Normal 1.4-4.0 [facility] Comment on above: Performed By: #### 2 062867, 7317200, 98177537, 6254229, 14632825, 5014396, 9854179, 7763009, 0917166, 0756215, 34033247 ####[facility] [address] [place] [address] Protein [Mass/Vol] 6.6 g/dL Normal 6.0-7.8 [facility] Comment on above: Performed By: #### 2 160228, 9762948, 80318016, 6747782, 67235910, 9403926, 1426259, 3677056, 8674392, 2038763, [id number] ####[facility] [address] [place] [address] Inpatient Clinical Summaryon 08-31-2022 Inpatient Clinical Summary Normal [facility] Inpatient Patient Summaryon 08-31-2022 Inpatient Patient Summary Normal [facility] [place] 08-31-2022 Anion gap [Moles/Vol] 13 mmol/L Normal 6-16 [facility] Comment on above: Performed By: #### 2 390231, [id number], [id number], 0255915, 00658076, 8533955, 2857240, 6762358, 1933236, 8047433, [id number] ####[facility] [address] [place] [address] Chloride [Moles/Vol] 104 mmol/L Normal 101-111 [facility] Comment on above: Performed By: #### 2 890060, 2607364, 02496235, 5911089, 92488305, 2223514, 2698623, 4212571, 2402996, 8581504, [id number] ####[address] [place] [address] CO2 [Moles/Vol] 22 mmol/L Normal 21-31 [facility] Comment on above: Performed By: #### 2 054734, 2067074, 79975408, 5414267, [id number], 1625318, 4883567, 5949387, 2745563, 4393984, 94331395 ####[address] [place] [address] Potassium [Moles/Vol] 3.5 mmol/L Normal 3.5-5.3 [facility] Comment on above: Performed By: #### 2 643919, 5475900, 98268438, 7936246, 32897865, 0725398, 2594651, 5599179, 5699032, 1318627, 83157799 ####[facility] [address] [place] [address] Sodium [Moles/Vol] 135 mmol/L Normal 135-145 [facility] Comment on above: Performed By: #### 2 454712, 7914795, 28023957, 8885996, 54970934, 0524350, 4183877, 5968236, 6287790, 7959398, 43495320 ####[address] [place] [address] Nursing Assessmenton 022 Nursing Assessment [id number]#[id number]:12 7 Normal [facility] PT & PTTon 08-31-2022 aPTT Coag (PPP) [Time] 26.3 second(s) Normal 25.1-36.5 [facility] Comment on above: Result Comment: Para [...] the same coagulation reagent and instrumentation as [facility]. Currently there are no coagulation studies available worldwide for children to 14 days, and no normal ranges. Heparin therapeutic range (represented by Anti-Factor Xa activity of 0.2 - 0.4 U/mL) corresponds to PTT of 56.6 - 109.0 sec. Performed By: #### 2 672821, 6384436, 74348633, 0126534, 67710149, 5566073, 2742974, 8873498, 0850052, 8324588, 21908310 ####[facility] [address] [place] [address] INR Coag (PPP) [Relative time] 0.9 {INR} Invalid Interpretation Code [facility] Comment on above: Result Comment: INR results are specifically intended to assess patients stabilized on long-term Anticoagulation therapy suggested INR?s ?Less Intensive Anticoagulation? 2.0 ? 3.0Conventional Range 3.0 ? 4.5 Performed By: #### 2 182396, 6586651, 23593945, 9097865, 82183003, 5667463, 8251596, 4743403, 2911718, 6585071, 69129539 ####[facility] [address] [place] [address] PT Coag (PPP) [Time] 10.2 second(s) Normal 9.4-12.5 [facility] Comment on above: Result Comment: 15 [...] the same coagulation reagent and instrumentation as [facility]. Currently there are no coagulation studies available worldwide for children to 14 days, and no normal ranges. Performed By: #### 2 756842, 8852126, 19539431, 9059167, 91161148, 1653287, 0932512, 6097129, 8953877, 5244442, 12761841 ####[facility] [address] [place] [address] U Drug Screenon 08-31-2022 Amphetamines Screen method >1000 ng/mL Ql (U) Negative Normal Negative [facility] Comment on above: Result Comment: Nega tive Cutoff: <1000 ng/mL Performed By: #### 2 635652, [id number] ####[facility] [address] [place] [address] Barbiturates Screen Ql (U) Negative Normal Negative [facility] Comment on above: Result Comment: Nega tive Cutoff: <200 ng/mL Performed By: #### 2 582716, 15770682 ####[facility] [address] [place] [address] Benzodiazepines Ql (U) Negative Normal Negative [facility] Comment on above: Result Comment: Nega tive Cutoff: <200 ng/mL Performed By: #### 2 563205, 82975920 ####[facility] [address] [place] [place] [address] Cocaine Ql (U) Negative Normal Negative [facility] Comment on above: Result Comment: Nega tive Cutoff: <300 ng/mL Performed By: #### 2 784402, 92976869 ####[facility] [address] [place] [place] [address] Opiates Screen Ql (U) Negative Normal Negative [facility] Comment on above: Result Comment: Nega tive Cutoff: <300 ng/mL Performed By: #### 2 565605, 88837508 ####[facility] [address] [place] [address] Phencyclidine Screen method >25 ng/mL Ql (U) Negative Normal Negative [facility] Comment on above: Result Comment: Nega tive Cutoff: <25 ng/mLThese drug screen results are to be used for medical (i.e., treatment) purposes only. Unconfirmed drug screening results must not be used for non-medical purposes (e.g., employment testing, legal testing). Performed By: #### 2 795952, 17556397 ####[facility] [address] [place] [address] Tetrahydrocannabinol Screen method >50 ng/mL Ql (U) Negative Normal Negative [facility] Comment on above: Result Comment: Nega tive Cutoff: <50 ng/mL Performed By: #### 2 150483, 90647981 ####[facility] [address] [place] [address] UA With Cult Reflexon 2021 Bacteria LM Ql (Urine sed) TRACE Normal Trace [facility] Comment on above: Performed By: #### 2 296094, 62702458 ####[facility] [address] [facility] [place] [address] Bilirubin Ql (U) Negative Normal Negative [facility] Comment on above: Performed By: #### 2 441520, 88224932 ####[facility] [address] [place] [address] Clarity (U) CLEAR Normal Clear [facility] Comment on above: Performed By: #### 2 235344, 22624672 ####[facility] [address] [place] [address] Color (U) YELLOW Normal Yellow [facility] Comment on above: Performed By: #### 2 777272, 36994828 ####[facility] [address] [place] [address] Epithelial cells.squamous LM.HPF (Urine sed) [#/Area] 0-2 Normal 0-2 [facility] Comment on above: Performed By: #### 2 248725, 93169133 ####[facility] [address] [place] [address] Glucose Test strip (U) [Mass/Vol] Negative Normal Negative [facility] Comment on above: Performed By: #### 2 522747, 51476237 ####[facility] [address] [place] [address] Hemoglobin Ql (U) Negative Normal Negative [facility] Comment on above: Performed By: #### 2 458843, 27409405 ####[facility] [address] [place] [address] Ketones (U) [Mass/Vol] Negative Normal Negative Fi [facility] Comment on above: Performed By: #### 2 375741, 67197829 ####[facility] [address] [place] [address] [place].plasma/[place] .RBC (Bld) [Mass ratio] 0-3 Normal 0-3 [facility] Comment on above: Performed By: #### 2 124338, 42485606 ####[facility] [address] [place] [address] Nitrite Ql (U) Negative Normal Negative [facility] Comment on above: Performed By: #### 2 800269, 97952510 ####[facility] [address] [place] [address] pH (U) 6.0 [pH] Invalid Interpretation Code 5.0-9.0 [facility] Comment on above: Performed By: #### 2 335741, 64861670 ####[facility] [address] [place] [address] Protein (U) [Mass/Vol] Negative Normal Negative Fi [facility] Comment on above: Performed By: #### 2 607204, 34428304 ####[facility] [address] [place] [address] Specific gravity (U) [Rel density] 1.010 Invalid Interpretation Code 1.005-1.030 [facility] Comment on above: Performed By: #### 2 847283, 95754859 ####[address] Type of Urine collection method Clean Catch Normal [facility] Comment on above: Performed By: #### 2 343158, 97762884 ####[address] [address] Urobilinogen Qn (U) 0.2 {Rola'U}/dL Normal 0.0-1.0 [facility] Comment on above: Performed By: #### 2 394066, 90633985 ####[facility] [address] [place], [place] [address] WBC Auto Ql (U) Negative Normal Negative [facility] Comment on above: Performed By: #### 2 304852, 65820375 ####[facility] [address] [place] [address] WBC LM.HPF (Urine sed) [#/Area] 0-5 Normal 0-5 [facility] Comment on above: Performed By: #### 2 373678, 09588148 ####[address] [address] Uric Acidon 08-31-2022 Urate [Mass/Vol] 5.0 mg/dL Normal 2.2-7.4 [facility] Comment on above: Performed By: #### 2 833333, 3386699, 49871116, 9555337, 05289835, 3857926, 7075782, 4340061, 3878117, 9267057, 55155616 ####[facility] [address] [place] [address] eGFRon 08-31-2022 GFR/1.73 sq M.predicted among blacks MDRD (S/P/Bld) [Vol rate/Area] mL/min/{1.73_m2} Normal >=59 [facility] Comment on above: Order Comment: Order added by Discern Expert. Result Comment: eGFR is race adjusted. AA=. Performed By: #### 2 718132, 7113064, 73979270, 3564039, 87339289, 5476689, 1471068, 7022709, 4280641, 4059961, 51299468 ####[facility] [address] [place] [address] GFR/1.73 sq M.predicted among non-blacks MDRD (S/P/Bld) [Vol rate/Area] mL/min/{1.73_m2} Normal >=59 [facility] Comment on above: Order Comment: Order added by Discern Expert. Result Comment: Management Tech lucy kidney disease could be indicated at eGFR's of less than 60 mL/min/1.73m2. Kidney failure is indicated at less than 15 mL/min/1.73m2. Performed By: #### 2 531045, 3082861, 15468870, 4338019, 78697014, 4857458, 9867714, 3460434, 0200609, 4662571, 85099805 ####[facility] [address] [place] [address] BLOOD BANKOrdered By: Naldo Li on 08-30-2022 ABO/Rh Interp Positive Invalid Interpretation Code [facility] BB Subsection ABSC Gel Interp Negative (08/30/22 11:51 PM) Normal [facility] BB Subsection FMHV 0 mL Invalid Interpretation Code [facility] Man Sero CHEMISTRYOrdered By: SYSTEM SYSTEM on 08-30-2022 Albumin [Mass/Vol] 2.8 g/dL Low 3.3 - 5.0 gm/dL [facility] Remisol Albumin/Globulin [Mass ratio] 0.7 {ratio} Low [...] rate/Area] mL/min/1.73 m2 Normal >=59mL/min/ 1.73 m2 [facility] Chem S GFR/1.73 [...] Consent for Treatmenton 08-15 Consent for Treatment [id number]#1.00CD:12 7 Normal [facility] HEMATOLOGYOrdered [...] PM) Normal Negative [facility] UA Auto SS [place].plasma/[place] .RBC (Bld) [Mass ratio] 0-3 /HPF Normal [...] [facility] UA Auto SS Urobilinogen Qn (U) 0.2588208 {Rola'U}/dL Normal 0.0 - 1.0 EU/dL [facility] UA Auto SS WBC Auto Ql (U) Negative (08/30/22 9:45 PM) Normal Negative [facility] UA Auto SS WBC LM.HPF (Urine sed) [#/Area] 0-5 /HPF Normal 0-5/HPF [facility] UA Auto SS Coding Summary.on 08-28-2022 Coding Summary. Normal [facility] BLOOD BANKOrdered By: Janet Reyes on 08-22-2022 ABO/Rh Interp Positive Invalid Interpretation Code [facility] BB Subsection ABSC Gel Interp Negative (08/22/22 4:03 PM) Normal [facility] BB Subsection FMHV 0 mL Invalid Interpretation Code [facility] Man Sero CHEMISTRYOrdered [...] rate/Area] mL/min/1.73 m2 Normal >=59mL/min/ 1.73 m2 [facility] Chem S GFR/1.73 sq M.predicted among non-blacks MDRD (S/P/Bld) [Vol rate/Area] mL/min/1.73 m2 Normal >=59mL/min/ 1.73 m2 [facility] Chem S Globulin [...] PM) Normal Negative [facility] UA Auto SS [place].plasma/[place] .RBC (Bld) [Mass ratio] 0-3 /HPF Normal [...] [facility] UA Auto SS Urobilinogen Qn (U) 0.4279349 {Rola'U}/dL Normal 0.0 - 1.0 EU/dL [facility] [...] AM) Normal Negative [facility] UA Auto SS [place].plasma/[place] .RBC (Bld) [Mass ratio] 0-3 /HPF Normal [...] Desc Clean Catch (08/18/22 4:08 AM) Normal [facility] UA Auto SS Urobilinogen Qn (U) 0.2642974 {Rola'U}/dL Normal 0.0 - 1.0 EU/dL [facility] UA Auto SS WBC Auto Ql (U) 2+ *ABN* (08/18/22 4:08 AM) Invalid Interpretation Code Negative [facility] UA Auto SS WBC LM.HPF (Urine sed) [#/Area] 6-15 /HPF Invalid Interpretation Code 0-5/HPF [facility] UA Auto SS BLOOD BANKOrdered By: Tom Avelar on 08-13-2022 ABO/Rh Interp Positive Invalid Interpretation Code [facility] BB Subsection ABSC Gel Interp Negative (08/13/22 6:26 PM) Normal [facility] BB Subsection FMHV 0 mL Invalid Interpretation Code [facility] Man Sero CHEMISTRYOrdered [...] Interpretation Code Negative [facility] UA Auto SS [place].plasma/[place] .RBC (Bld) [Mass ratio] 0-3 /HPF Normal [...] [facility] UA Auto SS Urobilinogen Qn (U) 0.4336987 {Rola'U}/dL Normal 0.0 - 1.0 EU/dL [facility] [...] AM) Normal Negative [facility] UA Auto SS [place].plasma/[place] .RBC (Bld) [Mass ratio] 0-3 /HPF Normal [...] [facility] UA Auto SS Urobilinogen Qn (U) 0.7517471 {Rola'U}/dL Normal 0.0 - 1.0 EU/dL [facility] [...] [Mass/Vol] Negative (07/17/22 9:25 AM) Normal Negative [facility] UA Auto SS Hemoglobin Ql (U) Negative (07/17/22 9:25 AM) Normal Negative [facility] UA Auto SS Ketones (U) [Mass/Vol] Negative (07/17/22 9:25 AM) Normal Negative [facility] UA Auto SS [place].plasma/[place] .RBC (Bld) [Mass ratio] 0-3 /HPF Normal 0-3/HPF [facility] UA Auto SS Nitrite Ql (U) Negative (07/17/22 9:25 AM) Normal Negative [facility] UA Auto SS pH (U) 7.0 *NA* (07/17/22 9:25 AM) Invalid Interpretation Code 5.0 - 9.0 [facility] UA Auto SS Protein (U) [Mass/Vol] Negative (07/17/22 9:25 AM) Normal Negative [facility] UA Auto SS Specific gravity (U) [Rel density] <=1.005 *NA* (07/17/22 9:25 AM) Invalid Interpretation Code 1.005 - 1.030 [facility] UA Auto SS UA Spec Desc Clean Catch (07/17/22 9:25 AM) Normal [facility] UA Auto SS Urobilinogen Qn (U) 0.3249951 {Rola'U}/dL Normal 0.0 - 1.0 EU/dL [facility] UA Auto SS WBC Auto Ql (U) Negative (07/17/22 9:25 AM) Normal Negative [facility] UA Auto SS WBC LM.HPF (Urine sed) [#/Area] 0-5 /HPF Normal 0-5/HPF [facility] UA Auto SS CHEMISTRYOrdered By: SYSTEM SYSTEM on 06-28-2022 Glucose 1 Hr post 50 g glucose PO [Mass/Vol] 93 mg/dL Normal 55 - 140 mg/dL [facility] Remisol HEMATOLOGYOrdered By: Keila Ring on 06-28-2022 Hematocrit (Bld) [Volume fraction] 35.4 % Normal 34.0 - 46.0 % [facility] HemeAutoSS Hemoglobin (Bld) [Mass/Vol] 12.1 g/dL Normal 12.0 - 16.0 gm/dL [facility] HemeAutoSS BLOOD BANKOrdered By: Jeanette Castle on 06-19-2022 ABO/Rh Interp Positive Invalid Interpretation Code [facility] BB Subsection ABSC Gel Interp Negative (06/19/22 12:15 AM) Normal [facility] BB Subsection FMHV 0 mL Invalid Interpretation Code [facility] Man Sero CHEMISTRYOrdered [...] PM) Normal Negative [facility] UA Auto SS [place].plasma/[place] .RBC (Bld) [Mass ratio] 0-3 /HPF Normal [...] [facility] UA Auto SS Urobilinogen Qn (U) 0.6398483 {Rola'U}/dL Normal 0.0 - 1.0 EU/dL [facility] [...] PM) Normal Negative [facility] UA Auto SS [place].plasma/[place] .RBC (Bld) [Mass ratio] 0-3 /HPF Normal 0-3/HPF [facility] UA Auto SS Mucus Ql (Urine sed) Trace (05/01/22 5:20 PM) Normal [facility] UA Auto SS Nitrite Ql (U) Negative (05/01/22 5:20 PM) Normal Negative [facility] UA Auto SS pH (U) 5.5 *NA* (05/01/22 5:20 PM) Invalid Interpretation Code 5.0 - 9.0 [facility] UA Auto SS Protein (U) [Mass/Vol] Trace *ABN* (05/01/22 5:20 PM) Invalid Interpretation Code Negative [facility] UA Auto SS Specific gravity (U) [Rel density] >=1.030 *NA* (05/01/22 5:20 PM) Invalid Interpretation Code 1.005 - 1.030 [facility] UA Auto SS UA Spec Desc Random Urine (05/01/22 5:20 PM) Normal [facility] UA Auto SS Urobilinogen Qn (U) 1.8404101 {Rola'U}/dL Normal 0.0 - 1.0 EU/dL [facility] UA Auto SS WBC Auto Ql (U) Negative (05/01/22 5:20 PM) Normal Negative [facility] UA Auto SS WBC LM.HPF (Urine sed) [#/Area] 0-5 /HPF Normal 0-5/HPF [facility] UA Auto SS BLOOD BANKOrdered By: Shayy Medina on 04-02-2022 ABO/Rh Interp Positive Invalid Interpretation Code [facility] BB Subsection ABSC Gel Interp Negative (04/02/22 7:17 AM) Normal [facility] BB Subsection FMHV 0 mL Invalid Interpretation Code [facility] Man Sero CHEMISTRYOrdered [...] AM) Normal Negative [facility] UA Auto SS [place].plasma/[place] .RBC (Bld) [Mass ratio] 0-3 /HPF Normal [...] [facility] UA Auto SS Urobilinogen Qn (U) 0.6597901 {Rola'U}/dL Normal 0.0 - 1.0 EU/dL [facility] [...] PM) Normal Negative [facility] UA Auto SS [place].plasma/[place] .RBC (Bld) [Mass ratio] 0-3 /HPF Normal [...] [facility] UA Auto SS Urobilinogen Qn (U) 0.4061339 {Rola'U}/dL Normal 0.0 - 1.0 EU/dL [facility] [...] By: Stephanie Diana on 02-15-2022 Test Code 393796 Invalid Interpretation Code [facility] SendOutsSS Test Name IG PAP CTNG HPV Invalid Interpretation Code [facility] SendOutsSS [place] 05-05-2021 CNPN Telephone (GSTCON) ----- SUSAN BRO ([id number]) 1995 F Date Time Provider Department 05/05/21 MARTHA WEBB During your visit today, we recorded the following information about you: Tucker Amairani Fur Trapper 05/05/2021 10:37 AM Signed Patient left message [...] diligent work on this patient Tucker Bales Fur Trapper 05/24/2021 2:23 PM Signed patient called and left a message today stating she needs to get this figured out she has not eaten in 3 days and cant even drink water now. Patient can be reached at [phone]- please read messages below for refresher Martha Webb MD 05/24/2021 4:30 PM Signed Please advise patient to go to ER for evaluation Tucker Mcdonald Asst 05/24/2021 4:35 PM Signed Had to leave a message for the patient, left the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 thor: Anna Lawler RtService: (none)Author Type: (none)Type: Progress NotesFiled: 07/23/2017 3:10 PMNote Text: Radiology Service Progress NotePATIENT NAME: Susan Byrd LennieMRN: [id number] OF SERVICE: July 23, 2017TIME: 3:09 PMPATIENT IDENTITY VERIFICATION COMPLETED USING TWO (2) METHODS: Patientconfirmed name verbally and Date of .PATIENT GENDER DATA: Female. status: : NoBreastfeeding status: NO.PATIENT RELEVANT IMPLANT DATA REVIEWED: YesRADIOLOGY DEPARTMENT: MR; Exam(s) Completed: Spine: Cervical spine inc-collarPERIPHERAL IV DATA: Not applicableSIGNED BY: Anna Lawler A.A.S.,RT (R) (CT)(MR)July 23, 2017 3:09 PM Normal [facility] PROGRESS HNO ID: [id number] thor: Shayy Ramires RtService: (none)Author Type: (none)Type: Progress NotesFiled: 07/23/2017 1:36 PMNote Text: Radiology Service Progress NotePATIENT NAME: Susan HogueMRN: [id number] OF SERVICE: July 23, 2017TIME: 1:36 PMPATIENT IDENTITY VERIFICATION COMPLETED USING TWO (2) METHODS: Patientconfirmed name verbally and Date of .PATIENT GENDER DATA: Female. status: : NoBreastfeeding status: NO.PATIENT RELEVANT IMPLANT DATA REVIEWED: YesRADIOLOGY DEPARTMENT: CT; Exam(s) Completed: SpinePERIPHERAL IV DATA: Not applicableSIGNED BY: Shayy Ramires RtOctober 2016 1:36 PM Normal [facility] PROGRESS HNO ID: [id number] thor: Romelia () Gi Green: (none)Author Type: TechnicianType: Progress NotesFiled: 07/23/2017 1:32 PMNote Text: Radiology Service Progress NotePATIENT NAME: Susan HogueMRN: [id number] OF SERVICE: July 23, 2017TIME: 1:32 PMPATIENT [...] Romelia Green RTOctober 2016 1:32 PM Normal [facility] XR HIP 3V PELV+ AP/LAT [...] soft tissues are unremarkable.IMPRESSION:N o acute/significant pathology detected.Wet Room Worker : PSCB Transcribe Date/Time: Jul 23 2017 1:42PDictated by : Armando CHARLES examination was interpreted and the report reviewed and electronically signed by: LUIS CARLOS PALM MD on Jul 23 2017 1:43PM [id number] Normal [facility] XR KNEE 2V AP/LAT LTon [...] soft tissues are unremarkable.IMPRESSION:N o acute/significant pathology detected.Wet Room Worker : Acquia Transcribe Date/Time: Jul 23 2017 1:44PDictated by : Armando CHARLES examination was interpreted and the report reviewed and electronically signed by: LUIS CARLOS PALM MD on Jul 23 2017 1:45PM [id number] Normal [facility] XR KNEE 2V AP/LAT RTon [...] soft tissues are unremarkable.IMPRESSION:N o acute/significant pathology detected.Wet Room Worker : PSCB Transcribe Date/Time: Jul 23 2017 1:44PDictated by : Armando CHARLES examination was interpreted and the report reviewed and electronically signed by: LUIS CARLOS PALM MD on Jul 23 2017 1:45PM [id number] Normal [facility] XR SHLDR >/=3V AP/IMER AP/OTH [...] soft tissues are unremarkable.IMPRESSION:N o acute/significant pathology detected.Wet Room Worker : PSCB Transcribe Date/Time: Jul 23 2017 1:41PDictated by : Armando CHARLES examination was interpreted and the report reviewed and electronically signed by: LUIS CARLOS PALM MD on Jul 23 2017 1:42PM [id number] Normal [facility] Vital Signs Date Time Vital Sign Value Performing Clinician Facility 11-04-2023 08:13-0500 Blood Pressure Location Rashaun PURVIS [facility] 11-04-2023 08:13-0500 Body temperature 98.06 [degF] Rashaun PURVIS [facility] 11-04-2023 08:13-0500 Diastolic blood pressure 68 mm[Hg] Rashaun PURVIS [facility] 11-04-2023 08:13-0500 Heart rate 77 /min Rashaun PURVIS [facility] 11-04-2023 08:13-0500 Mean blood pressure 81 mm[Hg] Rashaun YANIV [facility] 11-04-2023 08:13-0500 SaO2% (BldA) [Mass fraction] 99 % Rashaun YANIV [facility] 11-04-2023 08:13-0500 Systolic blood pressure 106 mm[Hg] Rashaun YANIV [facility] 11-04-2023 08:00-0500 Hourly Rounding Rashaun YANIV [facility] 11-04-2023 08:00-0500 Promise to Return Rashaun YANIV [facility] 08-18-2023 07:30-0400 Body temperature 98.24 [degF] Julia Nataprawira [facility] 08-18-2023 07:30-0400 Diastolic blood pressure 67 mm[Hg] Julia Nataprawira [facility] 08-18-2023 07:30-0400 Heart rate 95 /min Julia Nataprawira [facility] 08-18-2023 07:30-0400 Hourly Rounding Julia Nataprawira [facility] 08-18-2023 07:30-0400 Mean blood pressure 89 mm[Hg] Julia Nataprawira [facility] 08-18-2023 07:30-0400 Respiratory rate 16 /min Julia Nataprawira [facility] 08-18-2023 07:30-0400 Systolic blood pressure 133 mm[Hg] Julia Nataprawira [facility] 07-25-2023 08:17-0400 Body temperature 97.7 [degF] Kristian Guillermo [facility] 07-25-2023 08:17-0400 Diastolic blood pressure 65 mm[Hg] Kristian Guillermo [facility] 07-25-2023 08:17-0400 Heart rate 73 /min Kristian Guillermo [facility] 07-25-2023 08:17-0400 Respiratory rate 16 /min Kristian Guillermo [facility] 07-25-2023 08:17-0400 SaO2% (BldA) [Mass fraction] 100 % Kristian Guillermo [facility] 07-25-2023 08:17-0400 Systolic blood pressure 119 mm[Hg] Kristian Guillermo [facility] 06-28-2023 10:34-0400 Blood Pressure Location Roverto Spasic [facility] 06-28-2023 10:34-0400 Body temperature 98.24 [degF] Roverto Spasic [facility] 06-28-2023 10:34-0400 Diastolic blood pressure 78 mm[Hg] Roverto Spasic [facility] 06-28-2023 10:34-0400 Heart rate 81 /min Roverto Spasic [facility] 06-28-2023 10:34-0400 SaO2% (BldA) [Mass fraction] 99 % Roverto Spasic [facility] 06-28-2023 10:34-0400 Systolic blood pressure 119 mm[Hg] Roverto Spasic [facility] 06-14-2023 08:37-0400 Body temperature 98.6 [degF] Kristian Guillermo [facility] 06-14-2023 08:37-0400 Diastolic blood pressure 70 mm[Hg] Kristian Eagle [facility] 06-14-2023 08:37-0400 Heart rate 69 /min Kristian Guillermo [facility] 06-14-2023 08:37-0400 Respiratory rate 18 /min Kristian Guillermo [facility] 06-14-2023 08:37-0400 SaO2% (BldA) [Mass fraction] 100 % Kristian Guillermo [facility] 06-14-2023 08:37-0400 Systolic blood pressure 110 mm[Hg] Kristian Guillermo [facility] 05-21-2023 23:00-0400 Diastolic blood pressure 64 mm[Hg] Kaylinn Dokken [facility] 05-21-2023 23:00-0400 Heart rate 64 /min Kaylinn Dokken [facility] 05-21-2023 23:00-0400 Mean blood pressure 77 mm[Hg] Kaylinn Dokken [facility] 05-21-2023 23:00-0400 Respiratory rate 18 /min Kaylinn Dokken [facility] 05-21-2023 23:00-0400 Systolic blood pressure 102 mm[Hg] Kaylinn Dokken [facility] 05-21-2023 21:50-0400 Hourly Rounding Kaylinn Dokken [facility] 05-21-2023 21:30-0400 Diastolic blood pressure 53 mm[Hg] Kaylinn Dokken [facility] 05-21-2023 21:30-0400 Heart rate 72 /min Kaylinn Dokken [facility] 05-21-2023 21:30-0400 Respiratory rate 19 /min Kaylinn Dokken [facility] 05-21-2023 21:30-0400 SaO2% (BldA) [Mass fraction] 100 % Kaylinn Dokken [facility] 05-21-2023 21:30-0400 Systolic blood pressure 91 mm[Hg] Kaylinn Dokken [facility] 05-21-2023 20:38-0400 Body temperature 98.42 [degF] Kaylinn Dokken [facility] 05-21-2023 20:38-0400 Diastolic blood pressure 73 mm[Hg] Kaylinn Dokken [facility] 05-21-2023 20:38-0400 Heart rate 60 /min Kaylinn Dokken [facility] 05-21-2023 20:38-0400 Respiratory rate 20 /min Kaylinn Dokken [facility] 05-21-2023 20:38-0400 Systolic blood pressure 109 mm[Hg] Kaylinn Dokken [facility] 04-26-2023 11:10-0400 Diastolic blood pressure 74 mm[Hg] [facility] 04-26-2023 11:10-0400 Heart rate 65 /min [facility] 04-26-2023 11:10-0400 Respiratory rate 14 /min [facility] 04-26-2023 11:10-0400 SaO2% (BldA) [Mass fraction] 100 % [facility] 04-26-2023 11:10-0400 Systolic blood pressure 108 mm[Hg] [facility] 04-26-2023 09:00-0400 Body temperature 98.24 [degF] [facility] 04-26-2023 09:00-0400 Diastolic blood pressure 72 mm[Hg] [facility] 04-26-2023 09:00-0400 Heart rate 80 /min [facility] 04-26-2023 09:00-0400 Mean blood pressure 85 mm[Hg] [facility] 04-26-2023 09:00-0400 Respiratory rate 18 /min [facility] 04-26-2023 09:00-0400 Systolic blood pressure 110 mm[Hg] [facility] 01-31-2023 11:43-0400 Diastolic blood pressure 67 mm[Hg] Kristian Guillermo [facility] 01-31-2023 11:43-0400 Heart rate 68 /min Kristian Guillermo [facility] 01-31-2023 11:43-0400 Mean blood pressure 79 mm[Hg] Kristian Guillermo [facility] 01-31-2023 11:43-0400 Respiratory rate 16 /min Kristian Guillermo [facility] 01-31-2023 11:43-0400 SaO2% (BldA) [Mass fraction] 100 % Kristian Guillermo [facility] 01-31-2023 11:43-0400 Systolic blood pressure 103 mm[Hg] Kristian Guillermo [facility] 01-31-2023 11:03-0400 Diastolic blood pressure 73 mm[Hg] Kristian Eagle [facility] 01-31-2023 11:03-0400 Heart rate 71 /min Kristian Eagle [facility] 01-31-2023 11:03-0400 Mean blood pressure 81 mm[Hg] Kristian Eagle [facility] 01-31-2023 11:03-0400 Respiratory rate 12 /min Kristian Eagle [facility] 01-31-2023 11:03-0400 SaO2% (BldA) [Mass fraction] 100 % Kristian Eagle [facility] 01-31-2023 11:03-0400 Systolic blood pressure 98 mm[Hg] Kristian Eagle [facility] 01-31-2023 10:29-0400 Diastolic blood pressure 77 mm[Hg] Kristian Eagle [facility] 01-31-2023 10:29-0400 Heart rate 87 /min Kristian Eagle [facility] 01-31-2023 10:29-0400 Respiratory rate 21 /min Kristian Eagle [facility] 01-31-2023 10:29-0400 SaO2% (BldA) [Mass fraction] 99 % Kristian Eagle [facility] 01-31-2023 10:29-0400 Systolic blood pressure 101 mm[Hg] Kristian Eagle [facility] 01-31-2023 09:51-0400 gluc 100 mg/dL Kristian Guillermo [facility] 01-31-2023 09:51-0400 gluc Kristian Guillermo [facility] 01-31-2023 09:43-0400 Body temperature 98.42 [degF] Kristian Guillermo [facility] 01-31-2023 09:43-0400 Heart rate 75 /min Kristian Guillermo [facility] 01-31-2023 09:43-0400 Respiratory rate 18 /min Kristian Guillermo [facility] 09-22-2022 15:14-0500 Body temperature 98.24 [degF] Luis Carlos Jung [facility] 09-22-2022 15:14-0500 Diastolic blood pressure 84 mm[Hg] Luis Carlos Jung [facility] 09-22-2022 15:14-0500 Heart rate 76 /min Luis Carlos Jung [facility] 09-22-2022 15:14-0500 Mean blood pressure 97 mm[Hg] Luis Carlos Jung [facility] 09-22-2022 15:14-0500 Respiratory rate 20 /min Luis Carlos Jung [facility] 09-22-2022 15:14-0500 Systolic blood pressure 124 mm[Hg] Luis Carlos Jung [facility] 09-22-2022 15:00-0500 Blood Pressure Location Luis Carlos Jung [facility] 09-20-2022 17:15-0500 Hourly Rounding Luis Carlos Jung [facility] Comment on above: Result Comment: discharge instructions g iven with verbal understanding. monitors off; pt up to dress. 09-20-2022 16:15-0500 Diastolic blood pressure 77 mm[Hg] Luis Carlos Jung [facility] 09-20-2022 16:15-0500 Heart rate 78 /min Luis Carlos Fabiana [facility] 09-20-2022 16:15-0500 Mean blood pressure 92 mm[Hg] Luis Carlos Fabiana [facility] 09-20-2022 16:15-0500 Respiratory rate 18 /min Luis Carlos Fabiana [facility] 09-20-2022 16:15-0500 Systolic blood pressure 121 mm[Hg] Luis Carlos Fabiana [facility] 09-20-2022 13:16-0500 Diastolic blood pressure 80 mm[Hg] Luis Carlos Fabiana [facility] 09-20-2022 13:16-0500 Heart rate 80 /min Luis Carlos Fabiana [facility] 09-20-2022 13:16-0500 Mean blood pressure 93 mm[Hg] Luis Carlos Fabiana [facility] 09-20-2022 13:16-0500 Respiratory rate 18 /min Luis Carlos Fabiana [facility] 09-20-2022 13:16-0500 Systolic blood pressure 120 mm[Hg] Luis Carlos Fabiana [facility] 09-20-2022 09:48-0500 Diastolic blood pressure 79 mm[Hg] Luis Carlos Fabiana [facility] 09-20-2022 09:48-0500 Heart rate 94 /min Luis Carlos Fabiana [facility] 09-20-2022 09:48-0500 Hourly Rounding Luis Carlos Jung [facility] 09-20-2022 09:48-0500 Mean blood pressure 97 mm[Hg] Luis Carlos Fabiana [facility] 09-20-2022 09:48-0500 Respiratory rate 18 /min Luis Carlos Jung [facility] 09-20-2022 09:48-0500 Systolic blood pressure 132 mm[Hg] Luis Carlos Jung [facility] 09-19-2022 03:38-0500 Hourly Rounding Jj KARASIK [facility] Comment on above: Result Comment: pt walks off unit with a steady gait 09-19-2022 02:45-0500 Blood Pressure Location Jj KARASIK [facility] 09-19-2022 02:45-0500 Body temperature 98.42 [degF] Jj KARASIK [facility] 09-19-2022 02:45-0500 Diastolic blood pressure 77 mm[Hg] Jj KARASIK [facility] 09-19-2022 02:45-0500 Heart rate 62 /min Jj KARASIK [facility] 09-19-2022 02:45-0500 Hourly Rounding Jj KARASIK [facility] Comment on above: Result Comment: questions answered, guillaume monk 09-19-2022 02:45-0500 Mean blood pressure 91 mm[Hg] Jj KARASIK [facility] 09-19-2022 02:45-0500 Respiratory rate 18 /min Jj KARASIK [facility] 09-19-2022 02:45-0500 Systolic blood pressure 120 mm[Hg] Jj KARASIK [facility] 09-19-2022 01:45-0500 Blood Pressure Location Jj KARASIK [facility] 09-19-2022 01:45-0500 Body temperature 98.06 [degF] Jj KARASIK [facility] 09-19-2022 01:45-0500 Diastolic blood pressure 84 mm[Hg] Jj MIKE [facility] 09-19-2022 01:45-0500 Heart rate 70 /min Jj MIKE [facility] 09-19-2022 01:45-0500 Hourly Rounding Jj MIKE [facility] Comment on above: Result Comment: pt brought to unit via w heelchair. Changes into gown independently and provides urine sample. Pt demonstrates ability to use call light. Needs met, call light in reach 09-19-2022 01:45-0500 Mean blood pressure 96 mm[Hg] Jj MIKE [facility] 09-19-2022 01:45-0500 Respiratory rate 18 /min Jj MIKE [facility] 09-19-2022 01:45-0500 Systolic blood pressure 120 mm[Hg] Jj MIKE [facility] 09-14-2022 12:15-0500 Hourly Rounding Luis Carlos Fabiana [facility] Comment on above: Result Comment: reviewed plan for disch and use of meds to treat head ache 09-14-2022 11:45-0500 Hourly Rounding Luis Carlos Jung [facility] Comment on above: Result Comment: STATES SHE FEELS MUCH BE TTER AND WANTS TO GO HOME 09-14-2022 11:15-0500 Diastolic blood pressure 73 mm[Hg] Luis Carlos Jung [facility] 09-14-2022 11:15-0500 Heart rate 74 /min Luis Carlos Jung [facility] 09-14-2022 11:15-0500 Hourly Rounding Luis Carlos Jung [facility] 09-14-2022 11:15-0500 Mean blood pressure 88 mm[Hg] Luis Carlos Jung [facility] 09-14-2022 11:15-0500 Systolic blood pressure 119 mm[Hg] Luis Carlos Jung [facility] 09-14-2022 11:00-0500 Diastolic blood pressure 66 mm[Hg] Luis Carlos Jung [facility] 09-14-2022 11:00-0500 Heart rate 67 /min Luis Carlos Jung [facility] 09-14-2022 11:00-0500 Mean blood pressure 84 mm[Hg] Luis Carlos Jung [facility] 09-14-2022 11:00-0500 Systolic blood pressure 120 mm[Hg] Luis Carlos Jung [facility] 09-14-2022 10:45-0500 Diastolic blood pressure 72 mm[Hg] Luis Carlos Jung [facility] 09-14-2022 10:45-0500 Heart rate 75 /min Luis Carlos Jung [facility] 09-14-2022 10:45-0500 Mean blood pressure 90 mm[Hg] Luis Carlos Jung [facility] 09-14-2022 10:45-0500 Systolic blood pressure 125 mm[Hg] Luis Carlos Montesinosten [facility] 09-14-2022 09:30-0500 Blood Pressure Location Luis Carlos Jung [facility] 09-14-2022 09:30-0500 Body temperature 98.06 [degF] Luis Carlos Jung [facility] 09-14-2022 09:30-0500 Respiratory rate 16 /min Luis Carlos Jung [facility] 09-12-2022 20:45-0500 Hourly Rounding Luis Carlos Jung [facility] Comment on above: Result Comment: dischage instructions gi merly, pt verbalizes understanding. pt ambulates off unit with steady gait 09-12-2022 20:00-0500 Blood Pressure Location Lusi Carlos Jung [facility] 09-12-2022 20:00-0500 Diastolic blood pressure 79 mm[Hg] Luis Carlos Jung [facility] 09-12-2022 20:00-0500 Heart rate 84 /min Luis Carlos Jung [facility] 09-12-2022 20:00-0500 Hourly Rounding Luis Carlos Jung [facility] 09-12-2022 20:00-0500 Mean blood pressure 95 mm[Hg] Luis Carlos Jung [facility] 09-12-2022 20:00-0500 Respiratory rate 18 /min Luis Carlos Jung [facility] 09-12-2022 20:00-0500 Systolic blood pressure 128 mm[Hg] Luis Carlos Jung [facility] 09-12-2022 19:45-0500 Hourly Rounding Luis Carlos Jung [facility] Comment on above: Result Comment: pt arrives to unit in wh eelchair with mother. Changes into gown independently, oriented to room, demonstrates ability to use call light, call light in reach 09-08-2022 08:32-0500 Blood Pressure Location Lius Carlos Jung [facility] 09-08-2022 08:32-0500 Body temperature 97.34 [degF] Luis Carlos Jung [facility] 09-08-2022 08:32-0500 Diastolic blood pressure 74 mm[Hg] Luis Carlos Jung [facility] 09-08-2022 08:32-0500 Heart rate 90 /min Luis Carlos Jung [facility] 09-08-2022 08:32-0500 Hourly Rounding Luis Carlos Jung [facility] Comment on above: Result Comment: PLAN OF CARE DISCUSSED 09-08-2022 08:32-0500 Mean blood pressure 90 mm[Hg] Luis Carlos Fabiana [facility] 09-08-2022 08:32-0500 Respiratory rate 18 /min Luis Carlos Jung [facility] 09-08-2022 08:32-0500 Systolic blood pressure 123 mm[Hg] Luis Carlos Jung [facility] 09-05-2022 22:00-0500 Body temperature 98.6 [degF] Kaylinn Dokken [facility] 09-05-2022 22:00-0500 Diastolic blood pressure 73 mm[Hg] Kaylinn Dokken [facility] 09-05-2022 22:00-0500 Mean blood pressure 85 mm[Hg] Kaylinn Dokken [facility] 09-05-2022 22:00-0500 Respiratory rate 27 /min Kaylinn Dokken [facility] 09-05-2022 22:00-0500 SaO2% (BldA) [Mass fraction] 100 % Kaylinn Dokken [facility] 09-05-2022 22:00-0500 Systolic blood pressure 108 mm[Hg] Kaylinn Dokken [facility] 09-05-2022 21:01-0500 Heart rate 78 /min Kaylinn Dokken [facility] 09-05-2022 21:01-0500 Respiratory rate 20 /min Kaylinn Dokken [facility] 09-05-2022 21:01-0500 SaO2% (BldA) [Mass fraction] 94 % Kaylinn Dokken [facility] 09-05-2022 21:00-0500 Diastolic blood pressure 77 mm[Hg] Kaylinn Dokken [facility] 09-05-2022 21:00-0500 Mean blood pressure 87 mm[Hg] Kaylinn Dokken [facility] 09-05-2022 20:10-0500 Body temperature 97.7 [degF] Kaylinn Dokken [facility] 09-05-2022 20:10-0500 Diastolic blood pressure 81 mm[Hg] Kaylinn Dokken [facility] 09-05-2022 20:10-0500 Heart rate 83 /min Kaylinn Dokken [facility] 09-05-2022 20:10-0500 Respiratory rate 22 /min Kaylinn Dokken [facility] 09-05-2022 20:10-0500 SaO2% (BldA) [Mass fraction] 99 % Kaylinn Dokken [facility] 09-05-2022 20:10-0500 Systolic blood pressure 135 mm[Hg] Kaylinn Dokken [facility] 08-31-2022 01:03-0500 Hourly Rounding Luis Carlos Jung [facility] Comment on above: Result Comment: pt ambulates off unit at this time w/ steady gait. 08-31-2022 00:58-0500 Hourly Rounding Luis Carlos Jung [facility] Comment on above: Result Comment: this nurse gives dischar ge instructions to pt at this time. pt verbalizes understanding of all education given. denies further needs. will continue to monitor. 08-31-2022 00:50-0500 Blood Pressure Location Luis Carlos Jung [facility] 08-31-2022 00:50-0500 Diastolic blood pressure 69 mm[Hg] Luis Carlos Jung [facility] 08-31-2022 00:50-0500 Heart rate 67 /min Luis Carlos Jung [facility] 08-31-2022 00:50-0500 Hourly Rounding Luis Carlos Jung [facility] Comment on above: Result Comment: pt up to bathroom at thi s time to void and change into clothes. walks w/ steady gait. 08-31-2022 00:50-0500 Mean blood pressure 83 mm[Hg] Luis Carlos Jung [facility] 08-31-2022 00:50-0500 Respiratory rate 18 /min Luis Carlos Jung [facility] 08-31-2022 00:50-0500 Systolic blood pressure 112 mm[Hg] Luis Carlos Jung [facility] 08-30-2022 21:52-0500 Body temperature 98.06 [degF] Luis Carlos Jung [facility] 08-30-2022 21:52-0500 Diastolic blood pressure 74 mm[Hg] Luis Carlos Jung [facility] 08-30-2022 21:52-0500 Heart rate 82 /min Luis Carlos Jung [facility] 08-30-2022 21:52-0500 Mean blood pressure 90 mm[Hg] Luis Carlos Jung [facility] 08-30-2022 21:52-0500 Respiratory rate 18 /min Luis Carlos Jung [facility] 08-30-2022 21:52-0500 Systolic blood pressure 123 mm[Hg] Luis Carlos Jung [facility] 08-30-2022 21:45-0500 Blood Pressure Location Luis Carlos Jung [facility] 08-22-2022 17:19-0500 Hourly Rounding Luis Carlos Jung [facility] Comment on above: Result Comment: MONITORS OFF; PT UP TO D RESS. DISCHARGE INSTRUCTIONS GIVEN WITH VERBAL UNDERSTANDING. 08-22-2022 15:14-0500 Diastolic blood pressure 71 mm[Hg] Luis Carlos Jung [facility] 08-22-2022 15:14-0500 Heart rate 87 /min Luis Carlos Jung [facility] 08-22-2022 15:14-0500 Hourly Rounding Luis Carlos Jung [facility] 08-22-2022 15:14-0500 Mean blood pressure 86 mm[Hg] Luis Carlos Jung [facility] 08-22-2022 15:14-0500 Respiratory rate 18 /min Luis Carlos Jung [facility] 08-22-2022 15:14-0500 Systolic blood pressure 115 mm[Hg] Luis Carlos Jung [facility] 08-18-2022 12:28-0400 Hourly Rounding Luis Carlos Jung [facility] Comment on above: Result Comment: pt verbalizes understand ing of discharge instructions. pt states she has an appointment sunday with dr jung. pt ambulated out of unit 08-18-2022 10:28-0400 Hourly Rounding Luis Carlos Jung [facility] Comment on above: Result Comment: pt c/o left lower abd pa in. states it is intermittent and sharp. encouraged pt to get up and empty bladder. pt states pain is still 04/23. dr jung on unit & at bedside 08-18-2022 09:09-0400 Hourly Rounding Luis Carlos Jung [facility] Comment on above: Result Comment: pt sitting up in bed wit h breakfast tray, visitor at bedside 08-18-2022 07:15-0400 Blood Pressure Location Luis Carlos Jung [facility] 08-18-2022 07:15-0400 Diastolic blood pressure 56 mm[Hg] Luis Carlos Jung [facility] 08-18-2022 07:15-0400 Heart rate 69 /min Luis Carlos Jung [facility] 08-18-2022 07:15-0400 Mean blood pressure 74 mm[Hg] Luis Carlos Jung [facility] 08-18-2022 07:15-0400 Respiratory rate 16 /min Luis Carlos Jung [facility] 08-18-2022 07:15-0400 Systolic blood pressure 111 mm[Hg] Luis Carlos Jung [facility] 08-18-2022 05:58-0400 Blood Pressure Location Luis Carlos Jung [facility] 08-18-2022 05:58-0400 Diastolic blood pressure 59 mm[Hg] Luis Carlos Fabiana [facility] 08-18-2022 05:58-0400 Heart rate 67 /min Luis Carlos Jung [facility] 08-18-2022 05:58-0400 Mean blood pressure 77 mm[Hg] Luis Carlos Jung [facility] 08-18-2022 05:58-0400 Respiratory rate 16 /min Luis Carlos Jung [facility] 08-18-2022 05:58-0400 Systolic blood pressure 113 mm[Hg] Luis Carlos Jung [facility] 08-18-2022 04:06-0400 Blood Pressure Location Luis Carlos Jung [facility] 08-18-2022 04:06-0400 Body temperature 98.06 [degF] Luis Carlos Jung [facility] 08-18-2022 04:06-0400 Diastolic blood pressure 65 mm[Hg] Luis Carlos Jung [facility] 08-18-2022 04:06-0400 Heart rate 70 /min Luis Carlos Jung [facility] 08-18-2022 04:06-0400 Mean blood pressure 79 mm[Hg] Luis Carlos Jung [facility] 08-18-2022 04:06-0400 Respiratory rate 16 /min Luis Carlos Jung [facility] 08-18-2022 04:06-0400 Systolic blood pressure 107 mm[Hg] Luis Carlos Jung [facility] 08-13-2022 20:04-0400 Hourly Rounding Luis Carlos Jung [facility] Comment on above: Result Comment: Patient discharged off u nit. Discharge instructions were reviewed. Pt walks off unit without any notable signs or symtpoms of distress. 10-30-2022 19:45-0400 Hourly Rounding Luis Carlos Jung [facility] 08-13-2022 19:45-0400 Hourly Rounding Luis Carlos Jung [facility] Comment on above: Result Comment: Patient sitting in bed. BPP results reviewed with patient. Pt denied any additional questions. Call light within reach. 08-13-2022 18:12-0400 Heart rate 88 /min Luis Carlos Jung [facility] 08-13-2022 18:12-0400 Nursing Progress Note Reason Other: Pt updated on orders received from . [email or web address] understanding Luis Carlos Jung [facility] 08-13-2022 18:12-0400 SaO2% (BldA) [Mass fraction] 99 % Luis Carlos Fabiana [facility] 08-13-2022 17:33-0400 Body temperature 97.88 [degF] Luis Carlos Jung [facility] 08-13-2022 17:33-0400 Diastolic blood pressure 72 mm[Hg] Luis Carlos Jung [facility] 08-13-2022 17:33-0400 Mean blood pressure 88 mm[Hg] Luis Carlos Jung [facility] 08-13-2022 17:33-0400 Respiratory rate 18 /min Luis Carlos Jung [facility] 08-13-2022 17:33-0400 Systolic blood pressure 121 mm[Hg] Luis Carlos Fabiana [facility] 07-26-2022 10:22-0400 Hourly Rounding Luis Carlos Jung [facility] Comment on above: Result Comment: discharge instructions p rovided and pt signs discharge consent with RN witness. pt preparing for discharge, belly band placed on pt. RN offers wheelchair exit for discharge and pt declines and wants to walk down on own. 07-26-2022 10:22-0400 Promise to Return Luis Carlos Jung [facility] 07-26-2022 10:00-0400 Hourly Rounding Luis Carlos Jung [facility] 07-26-2022 10:00-0400 Promise to Return Luis Carlos Jung [facility] 07-26-2022 09:15-0400 Blood Pressure Location Luis Carlos Jung [facility] 07-26-2022 09:15-0400 Body temperature 97.7 [degF] Luis Carlos Jung [facility] 07-26-2022 09:15-0400 Diastolic blood pressure 62 mm[Hg] Luis Carlos Jung [facility] 07-26-2022 09:15-0400 Heart rate 70 /min Luis Carlos Jung [facility] 07-26-2022 09:15-0400 Hourly Rounding Luis Carlos Jung [facility] 07-26-2022 09:15-0400 Mean blood pressure 74 mm[Hg] Luis Carlos Jung [facility] 07-26-2022 09:15-0400 Respiratory rate 18 /min Luis Carlos Jung [facility] 07-26-2022 09:15-0400 Systolic blood pressure 97 mm[Hg] Luis Carlos Jung [facility] 07-26-2022 09:00-0400 Promise to Return Luis Carlos Jung [facility] 07-26-2022 08:14-0400 Body temperature 98.06 [degF] Luis Carlos Jung [facility] 07-26-2022 08:14-0400 Diastolic blood pressure 66 mm[Hg] Luis Carlos Jung [facility] 07-26-2022 08:14-0400 Heart rate 81 /min Luis Carlos Jung [facility] 07-26-2022 08:14-0400 Mean blood pressure 80 mm[Hg] Luis Carlos Jung [facility] 07-26-2022 08:14-0400 Respiratory rate 18 /min Luis Carlos Jung [facility] 07-26-2022 08:14-0400 Systolic blood pressure 109 mm[Hg] Luis Carlos Jung [facility] 07-17-2022 09:07-0400 Body temperature 97.88 [degF] Ko Dumas [facility] 07-17-2022 09:07-0400 Diastolic blood pressure 74 mm[Hg] Ko Dumas [facility] 07-17-2022 09:07-0400 Heart rate 85 /min Ko Dumas [facility] 07-17-2022 09:07-0400 Respiratory rate 16 /min Ko Dumas [facility] 07-17-2022 09:07-0400 SaO2% (BldA) [Mass fraction] 100 % Ko Dumas [facility] 07-17-2022 09:07-0400 Systolic blood pressure 117 mm[Hg] Ko Dumas [facility] 06-26-2022 21:38-0400 Blood Pressure Location Luis Carlos Jung [facility] 06-26-2022 21:38-0400 Diastolic blood pressure 61 mm[Hg] Luis Carlos Jung [facility] 06-26-2022 21:38-0400 Heart rate 83 /min Luis Carlos Jung [facility] 06-26-2022 21:38-0400 Hourly Rounding Luis Carlos Jung [facility] Comment on above: Result Comment: discharged ambulatory to pov 06-26-2022 21:38-0400 Mean blood pressure 75 mm[Hg] Luis Carlos Fabiana [facility] 06-26-2022 21:38-0400 Respiratory rate 16 /min Luis Carlos Montesinosten [facility] 06-26-2022 21:38-0400 Systolic blood pressure 102 mm[Hg] Luis Carlos Montesinosten [facility] 06-26-2022 21:15-0400 Blood Pressure Location Luis Carlos Fabiana [facility] 06-26-2022 21:15-0400 Diastolic blood pressure 64 mm[Hg] Luis Carlos Montesinosten [facility] 06-26-2022 21:15-0400 Heart rate 74 /min Luis Carlos Jung [facility] 06-26-2022 21:15-0400 Hourly Rounding Luis Carlos Jung [facility] 06-26-2022 21:15-0400 Mean blood pressure 78 mm[Hg] Luis Carlos Montesinosten [facility] 06-26-2022 21:15-0400 Respiratory rate 16 /min Luis Carlos Montesinosten [facility] 06-26-2022 21:15-0400 Systolic blood pressure 106 mm[Hg] Luis Carlos Fabiana [facility] 06-26-2022 21:05-0400 Body temperature 97.88 [degF] Luis Carlos Fabiana [facility] 06-26-2022 21:05-0400 Respiratory rate 18 /min Luis Carlos Jung [facility] 06-26-2022 21:00-0400 Hourly Rounding Luis Carlos Jung [facility] Comment on above: Result Comment: ice water given 06-19-2022 01:30-0400 Hourly Rounding Luis Carlos Jung [facility] Comment on above: Result Comment: updated on plan of care after speaking to dr jung. verb understanding and all d/c instructions provided. denies further needs/concerns. ambulates off unit without any further questions. 06-19-2022 01:00-0400 Hourly Rounding Luis Carlos Jung [facility] Comment on above: Result Comment: rests in bed on phone. d enies any needs. denies any pain at this time or any pain or cramping since arrival. call light within reach 06-19-2022 00:15-0400 Hourly Rounding Luis Carlos Jung [facility] 06-18-2022 23:54-0400 Body temperature 97.88 [degF] Luis Carlos Jung [facility] 06-18-2022 23:54-0400 Diastolic blood pressure 65 mm[Hg] Luis Carlos Jung [facility] 06-18-2022 23:54-0400 Heart rate 76 /min Luis Carlos Jung [facility] 06-18-2022 23:54-0400 Mean blood pressure 81 mm[Hg] Luis Carlos Jung [facility] 06-18-2022 23:54-0400 Respiratory rate 18 /min Luis Carlos Jung [facility] 06-18-2022 23:54-0400 Systolic blood pressure 112 mm[Hg] Luis Carlos Jung [facility] 06-18-2022 23:45-0400 Blood Pressure Location Luis Carlos Jung [facility] 05-01-2022 17:45-0400 Hourly Rounding Luis Carlos Jung [facility] Comment on above: Result Comment: reviewed disch inst and meds to take states understanding 05-01-2022 17:30-0400 Hourly Rounding Luis Carlos Jung [facility] 05-01-2022 17:23-0400 Body temperature 98.06 [degF] Luis Carlos Jung [facility] 05-01-2022 17:23-0400 Diastolic blood pressure 57 mm[Hg] Luis Carlos Jung [facility] 05-01-2022 17:23-0400 Heart rate 83 /min Luis Carlos Jung [facility] 05-01-2022 17:23-0400 Mean blood pressure 71 mm[Hg] Luis aCrlos Jung [facility] 05-01-2022 17:23-0400 Respiratory rate 16 /min Luis Carlos Jung [facility] 05-01-2022 17:23-0400 Systolic blood pressure 99 mm[Hg] Luis Carlos Jung [facility] 05-01-2022 17:15-0400 Blood Pressure Location Luis Carlos Jung [facility] 05-01-2022 17:15-0400 Hourly Rounding Luis Carlos Jung [facility] 04-02-2022 13:30-0400 Hourly Rounding Luis Carlos Jung [facility] Comment on above: Result Comment: pt given discharge instr uctions at this time to follow up with fabiana sunday or states understanding to call office tomorrow for appointment 04-02-2022 12:30-0400 Hourly Rounding Luis Carlos Jung [facility] Comment on above: Result Comment: pt returns to bed from r estroom at this time denies discomfort at this time 04-02-2022 11:30-0400 Hourly Rounding Luis Carlos Jung [facility] Comment on above: Result Comment: pt sitting in bed at thi s time denies needs or discomfort 04-02-2022 06:28-0400 Body temperature 99.68 [degF] Luis Carlos Jung [facility] 04-02-2022 06:28-0400 Diastolic blood pressure 68 mm[Hg] Luis Carlos Jung [facility] 04-02-2022 06:28-0400 Heart rate 89 /min Luis Carlos Jung [facility] 04-02-2022 06:28-0400 Heart rate 86 /min Luis Carlos Jung [facility] 04-02-2022 06:28-0400 Mean blood pressure 83 mm[Hg] Luis Carlos Jung [facility] 04-02-2022 06:28-0400 Respiratory rate 20 /min Luis Carlos Jung [facility] 04-02-2022 06:28-0400 SaO2% (BldA) [Mass fraction] 98 % Luis Carlos Jung [facility] 04-02-2022 06:28-0400 Systolic blood pressure 114 mm[Hg] Luis Carlos Fabiana [facility] 03-23-2022 21:08-0400 Hourly Rounding Luis Carlos Jung [facility] Comment on above: Result Comment: Patient ambulatory off u nit. No signs or symptoms of distress noted. 03-23-2022 20:35-0400 Hourly Rounding Luis Carlos Jung [facility] Comment on above: Result Comment: Patient updated on plan of care. Verbalizes understanding. Call light in reach. 03-23-2022 19:49-0400 Blood Pressure Location Luis Carlos Jung [facility] 03-23-2022 19:49-0400 Body temperature 98.78 [degF] Luis Carlos Jung [facility] 03-23-2022 19:49-0400 Diastolic blood pressure 66 mm[Hg] Luis Carlos Jung [facility] 03-23-2022 19:49-0400 Heart rate 69 /min Luis Carlos Jung [facility] 03-23-2022 19:49-0400 Hourly Rounding Luis Carlos Jung [facility] Comment on above: Result Comment: Patient arrives on unit. 03-23-2022 19:49-0400 Mean blood pressure 79 mm[Hg] Luis Carlos Jung [facility] 03-23-2022 19:49-0400 Respiratory rate 16 /min Luis Carlos Jung [facility] 03-23-2022 19:49-0400 Systolic blood pressure 106 mm[Hg] Luis Carlos Jung [facility] 10-14-2020 13:15-0500 Pulse (Heart Rate) 74 /min [facility] 10-14-2020 13:15-0500 Pulse Oximetry 98 % [facility] 10-14-2020 13:15-0500 Respiratory Rate 16 /min [facility] 10-14-2020 13:00-0500 BP Diastolic 74 mm[Hg] [facility] 10-14-2020 13:00-0500 BP Systolic 123 mm[Hg] [facility] 10-14-2020 10:13-0500 BMI (Body Mass Index) 34.33 kg/m2 [facility] 10-14-2020 10:13-0500 Body Temperature 97.81 [degF] [facility] 10-14-2020 10:13-0500 Body weight 90.72 kg [facility] 10-14-2020 10:130500 Height 162.6 cm [facility] 08-09-2020 20:33-0400 BP Diastolic 81 mm[Hg] [place] 08-09-2020 20:33-0400 BP Systolic 122 mm[Hg] [place] 08-09-2020 20:33-0400 Pulse (Heart Rate) 78 /min [place] 08-09-2020 20:33-0400 Respiratory Rate 16 /min [place] 08-09-2020 19:03-0400 BMI (Body Mass Index) 39.48 kg/m2 [place] 08-09-2020 19:03-0400 Body Temperature 98.29 [degF] [place] 08-09-2020 19:03-0400 Body weight 104.33 kg [place] 08-09-2020 19:03-0400 Height 162.6 cm [place] 08-09-2020 19:03-0400 Pulse Oximetry 98 % [place] Encounters Encounter Date Encounter Type Care Provider Facility Start: 11-06-2023 End: 11-06-2023 ambulatory RASHAUN PURVIS Not Available Start: 11-04-2023 End: 11-04-2023 OB Triage Rashaun PURVIS [facility] Start: 10-31-2023 End: 10-31-2023 ambulatory RASHAUN PURVIS Not Available Start: 10-18-2023 End: 10-18-2023 ambulatory DODIE MILLER Not Available Start: 10-03-2023 End: 10-03-2023 ambulatory DODIE MILLER Not Available Start: 09-12-2023 End: 09-12-2023 ambulatory RASHAUN PURVIS Not Available Start: 08-23-2023 End: 08-23-2023 Lab Drop off ZORAN MYRICK [facility] Start: 08-23-2023 End: 08-24-2023 ambulatory DRINK MIXER ZORAN J ELEN Facility:[facility] Start: 08-19-2023 End: 09-14-2023 Pre-admission assessment Julia Wallace Haywood [facility] Start: 08-18-2023 End: 08-18-2023 ambulatory DO Julia DukePatricia Haywood Facility:[facility] Start: 08-18-2023 End: 08-18-2023 OB Triage Julia DukePatricia Haywood [facility] Start: 07-25-2023 End: 07-25-2023 Emergency department patient visit Kristian Guillermo Facility:[facility] Start: 07-25-2023 End: 07-25-2023 Emergency department patient visit Kristian Guillermo [facility] Start: 06-28-2023 End: 06-29-2023 ambulatory Roverto V. Spasic Facility:[facility] Start: 06-28-2023 End: 06-28-2023 Patient encounter procedure Roverto V. Spasic [facility] Start: 06-14-2023 End: 06-14-2023 Emergency department patient visit Kristian Guillermo Facility:[facility] Start: 06-14-2023 End: 06-14-2023 Emergency department patient visit Kristian Guillermo [facility] Start: 06-12-2023 End: 06-13-2023 ambulatory Luis Carlos Jung Facility:[facility] Start: 06-12-2023 End: 06-12-2023 Patient encounter procedure Luis Carlos Jung [facility] Start: 05-21-2023 End: 05-22-2023 Emergency department patient visit DO Gopi Rodriguez Facility:[facility] Start: 05-21-2023 End: 05-21-2023 Emergency department patient visit Gopi Rodriguez [facility] Start: 04-30-2023 End: 05-01-2023 ambulatory Luis Carlos Jung Facility:[facility] Start: 04-30-2023 End: 04-30-2023 Lab Drop off Luis Carlos Jung [facility] Start: 04-30-2023 End: 05-01-2023 ambulatory Luis Carlos Jung Facility:[facility] Start: 04-30-2023 End: 04-30-2023 Patient encounter procedure Luis Carlos Jung [facility] Start: 04-26-2023 End: 04-26-2023 Emergency department patient visit Vimalelena Leonfelipe Facility:[facility] Start: 04-26-2023 End: 04-26-2023 Emergency department patient visit Vimalelena Charles Bert [facility] Start: 01-31-2023 End: 01-31-2023 Emergency department patient visit Kristian Guillermo Facility:[facility] Start: 01-31-2023 End: 01-31-2023 Emergency department patient visit Kristian Guillermo [facility] Start: 09-24-2022 End: 09-27-2022 Evaluation and management of inpatient Luis Carlos Jung Facility:[facility] Start: 09-22-2022 End: 09-22-2022 ambulatory Luis Carlos Jung Facility:[facility] Start: 09-22-2022 End: 09-22-2022 OB Triage Luis Carlos Jung [facility] Start: 09-20-2022 End: 09-20-2022 ambulatory Luis Carlos Jung Facility:[facility] Start: 09-20-2022 End: 09-20-2022 OB Triage Luis Carlos Jung [facility] Start: 09-19-2022 End: 09-19-2022 ambulatory Jj MIKE Facility:[facility] Start: 09-19-2022 End: 09-19-2022 OB Triage Jj MIKE [facility] Start: 09-14-2022 End: 09-14-2022 ambulatory Luis Carlos Jung Facility:[facility] Start: 09-14-2022 Emergency department patient visit DO Gopi Rodriguez Facility:[facility] Start: 09-14-2022 End: 09-14-2022 OB Triage Luis Carlos Jung [facility] Start: 09-12-2022 End: 09-12-2022 ambulatory Luis Carlos Jung Facility:[facility] Start: 09-12-2022 End: 09-12-2022 OB Triage Luis Carlos Jung [facility] Start: 09-08-2022 End: 09-08-2022 ambulatory Luis aCrlos Jung Facility:[facility] Start: 09-08-2022 End: 09-08-2022 OB Triage Luis Carlos Jung [facility] Start: 09-06-2022 End: 12-06-2022 ambulatory Luis Carlos Jung Facility:[facility] Start: 09-05-2022 End: 09-06-2022 Emergency department patient visit DO Gopi Rodriguez Facility:[facility] Start: 09-05-2022 End: 09-05-2022 Emergency department patient visit Gopi Rodriguez [facility] Start: 09-05-2022 End: 12-05-2022 Patient encounter procedure SELF REFERRAL [facility] Start: 09-04-2022 End: 09-05-2022 ambulatory Luis Carlos Rochelle Jung Facility:[facility] Start: 09-04-2022 End: 09-04-2022 Lab Drop off Luis Carlos Rochelle Jung [facility] Start: 08-30-2022 End: 08-31-2022 ambulatory Luis Carlos Jung Facility:[facility] Start: 08-30-2022 End: 08-31-2022 OB Triage Luis Carlos Rochelle Jung [facility] Start: 08-22-2022 End: 08-22-2022 OB Triage Luis Carlos Rochelle Jung [facility] Start: 08-18-2022 End: 08-18-2022 OB Triage Luis Carlos Rochelle Jung [facility] Start: 08-13-2022 End: 08-13-2022 OB Triage Luis Carlos Byrd Fabiana [facility] Start: 07-26-2022 End: 07-26-2022 OB Triage Luis Carlos Byrd Fabiana [facility] Start: 07-17-2022 End: 07-17-2022 Emergency department patient visit Ko Dumas [facility] Start: 06-28-2022 End: 06-28-2022 Patient encounter procedure Luis Carlos Rochelle Jung [facility] Start: 06-26-2022 End: 06-26-2022 OB Triage Luis Carlos Byrd Fabiaan [facility] Start: 06-20-2022 End: 07-15-2022 Pre-admission assessment Luis Carlos Byrd Fabiana [facility] Start: 06-18-2022 End: 06-19-2022 OB Triage Luis Carlos Byrd Fabiana [facility] Start: 05-02-2022 End: 06-15-2022 Pre-admission assessment THANG MILLAN [facility] Start: 05-01-2022 End: 05-01-2022 OB Triage Luis Carlos Rochelle Jung [facility] Start: 04-02-2022 End: 04-02-2022 OB Triage Luis Carlos Byrd Fabiana [facility] Start: 03-23-2022 End: 03-23-2022 OB Triage Luis Carlos Byrd Fabiana [facility] Start: 03-16-2022 End: 03-16-2022 Patient encounter procedure Luis Carlos Byrd Fabiana [facility] Start: 02-15-2022 End: 02-15-2022 Lab Drop off Luis Carlos Jung [facility] Start: 02-23-2021 End: 02-23-2021 Patient encounter procedure Martha Webb MD Work Phone: [facility] Start: 02-23-2021 Results Only Martha Webb MD Work Phone: Gastroenterology Start: 10-14-2020 End: 10-14-2020 Emergency department patient visit PHYSICIAN NO [facility] Start: 10-14-2020 End: 10-14-2020 Emergency department patient visit Regine Chow Work Phone: [facility] Emergency Department Comment on above: Vertigo (Primary Dx) Start: 08-09-2020 End: 08-09-2020 Emergency department patient visit [facility] Start: 08-09-2020 End: 08-09-2020 Emergency department patient visit [facility] Work Phone: [facility] ED Comment on above: Contusion of right k nee, initial encounter (Primary Dx); Contusion of multiple sites of right shoulder and upper arm, initial encounter Start: 07-23-2017 End: 07-23-2017 Emergency department patient visit NKECHI RAYGOZAINE MELISSA [facility] Guerra Procedures Date Procedure Procedure [...] 05-12-2028 Tetanus vaccination Tetanus: Every 1 0yrs [facility] Start: 06-15-2021 Influenza vaccination INFLUENZ A (Season Ended) [facility] Start: 06-15-2020 Influenza vaccination Flu vaccine (# 1) [place], [place] Start: 2014 PAP TESTING PAP TESTING [facility] Start: 2014 Screening for malign ant neoplasm of cervix Cervical cancer screen [place], [place] Start: 2012 DTaP/Tdap/Td vaccine (1 - Tdap) DTaP/Tdap/Td vaccine (1 - Tdap) [place] Start: 2012 Urine microalbumin profile DTAP,TDAP,TD (1 - Tdap) [facility] Start: 2011 Hepatitis C antibody , confirmatory test Hepatitis C Screening [facility] Start: 2011 HEPATITIS C SCREENING HEPATITIS C SC REENING [facility] Start: 2011 HIV SCREENING HIV SCREENING [facility] Start: 2008 [facility] [place] [place] Start: 2005 Adolescent depressio n screening assessment [facility] Start: 2004 HPV vaccine (1 - 2-d ose series) HPV vaccine (1 - 2-dose series) [place], [place] Start: 1996 History and physical examination, annual for health maintenance Wellness Visit [facility] Start: 1994 Varicella vaccine (1 of 2 - 2-dose childhood series) Varicella vaccine (1 of 2 - 2-dose childhood series) [place], [place] Start: 1993 Screening for malign ant neoplasm of cervix Pap Smear [facility] PT ED PATIENT INFORMATION PT ED PATIENT INFORMATION Other 02/23/2021 [facility] Immunizations Immunization Date Immunization Notes Care Provider Lennox ramriez 08-18-2023 influenza, seasonal, injectable Julia Haywood [facility] 09-25-2022 influenza, seasonal, injectable SELF REFERRAL [facility] Comment on above: Early/Late Reason: E isaac/Late Reason: Nursing Judgment 01-28-2021 COVID-19, mRNA, LNP- S, PF, 30 mcg/0.3 mL dose; Translations: [Shipping Easy COVID-19 Vaccine] Luis Carlos Jung [facility] Comment on above: Reason for Medicatio n: Prophylaxis Reason for Medicatio n: Prophylaxis 12-31-2020 COVID-19, mRNA, LNP- S, PF, 30 mcg/0.3 mL dose; Translations: [Pfizer-BioNTech COVID-19 Vaccine] Luis Carlos Fabiana [facility] Comment on above: Reason for Medicatio n: Prophylaxis Reason for Medicatio n: Prophylaxis 05-12-2018 tetanus toxoid, reduced diphtheria toxoid, and acellular pertussis vaccine, adsorbed; Translations: [Adacel (Tdap)] Luis Carlos Fabiana [facility] Payers Date Payer Category Payer Unknown [id number] 2019 Unknown [id number] 1. [id number] 1993 Unknown [id number] 2.16.8 40.1.146602.3.579.2.173 1993 Unknown [id number] 2.16. 840.1.063730.3.579.2.903 1993 Unknown [id number] 2.16.8 40.1.639985.3.579.2.727 1993 Unknown [id number] 2.16.8 40.1.558973.3.579.2.727 1993 Unknown [id number] 2.16.8 40.1.124120.3.579.2.727 1993 Unknown [id number] 2.16.8 40.1.760609.3.579.2.727 1993 Unknown [id number] 2.16.8 40.1.509153.3.579.2.727 1993 Unknown [id number] 2.16.8 40.1.276039.3.579.2.727 1993 Unknown [id number] 2.16.8 40.1.400180.3.579.2. 1993 Unknown [id number] 2.16.8 40.1.208365.3.579.2. 1993 Unknown [id number] 2.16.8 40.1.379669.3.579.2. 1993 Unknown [id number] 2.16.8 40.1.703868.3.579.2. 1993 Unknown [id number] 2.16.8 40.1.962434.3.579.2. 1993 Unknown [id number] 2.16.8 40.1.496094.3.579.2 1993 Unknown [id number] 2.16.8 40.1.369498.3.579.2 1993 Unknown [id number] 2.16.8 40.1.170790.3.579.2 1993 Unknown [id number] 2.16.8 40.1.147507.3.579.2 1993 Unknown [id number] 2.16.8 40.1.059653.3.579.2 1993 Unknown [id number] 2.16.8 40.1.223662.3.579.2. 1993 Unknown [id number] 2.16.8 40.1.875504.3.579.2 1993 Unknown [id number] 2.16.8 40.1.667658.3.579.2. 1993 Unknown [id number] 2.16.8 40.1.486719.3.579.2. 1993 Unknown [id number] 2.16.8 40.1.666309.3.579.2. 1993 Unknown [id number] 2.16.8 40.1.513603.3.579.2 1993 Unknown [id number] 2.16.8 40.1.389739.3.579.2.727 1993 Unknown [id number] 2.16.8 40.1.203334.3.579.2.727 1993 Unknown [id number] 2.16.84 0.1.077985.3.579.2.1259 1993 Unknown [id number] 2.16.84 0.1.971891.3.579.2.1259 1993 Unknown [id number] 2.16.840 .1.501651.3.579.2.1259 1993 Unknown [id number] 2.16.840 .1.970364.3.579.2.1259 1993 Unknown [id number] 2.16.840 .1.847455.3.579.2.1259 1993 Unknown [id number] 2.16.840 .1.365452.3.579.2.1259 Social History Date Type Detail Facility Start: 08-09-2020 End: 10-14-2020 Tobacco smoking status NHIS Current every day smoker [place], [place] Start: 08-09-2020 End: 10-14-2020 Tobacco use and exposure Never used [place] Start: 10-14-2020 Alcohol intake Ex-drinker (finding) [facility] Start: 1993 Sex Assigned At Not on file M [place] Exposure to SARS-CoV -2 (event) Not sure [place] Start: 08-09-2020 Cigarettes smoked current (pack per day) - Reported [place] Start: 08-09-2020 Alcohol intake Lifetime non-d val (finding) [place] Start: 08-09-2020 History SDOH Alcohol Frequency 1 [place] Start: 07-06-2021 End: 08-18-2022 Tobacco smoking status Light tobacco smoker (finding) [facility] Sex Assigned At Female [facility] Tobacco [facility] Comment on above: current current denies Start: 06-28-2023 Tobacco smoking status Ex-smoker (fi nding) [facility] Comment on above: current Tobacco smoking status Never [facility] Comment on above: current Tobacco smoking status No Smokin g Status Entered [facility] Functional Status Date Assessment Result Facility 11-04-2023 Functional Status N/A [facility] 08-18-2023 Functional Status N/A [facility] 07-25-2023 Functional Status N/A [facility] 06-28-2023 Functional Status N/A [facility] 06-14-2023 Functional Status N/A [facility] 05-21-2023 Functional Status N/A [facility] 04-26-2023 Functional Status N/A [facility] 01-31-2023 Functional Status N/A [facility] 09-22-2022 Functional Status N/A [facility] 09-20-2022 Functional Status N/A [facility] 09-19-2022 Functional Status N/A [facility] 09-14-2022 Functional Status N/A [facility] 09-12-2022 Functional Status N/A [facility] 09-08-2022 Functional Status N/A [facility] 09-05-[address] [facility] 08-30-2022 Functional Status N/A [facility] 08-22-2022 Functional Status N/A [facility] 08-18-2022 Functional Status N/A [facility] 08-13-2022 Functional Status N/A [facility] 07-26-2022 Functional Status N/A [facility] 07-17-2022 Functional Status N/A [facility] 06-26-2022 Functional Status N/A [facility] 06-18-2022 Functional Status N/A [facility] 05-01-2022 Functional Status N/A [facility] 04-02-2022 Functional Status N/A [facility] Clinical Notes 03-10-2021 to 11-04-2023 Note Date & Type Note Facility 11-04-2023 Evaluation + Plan note Diagnostic Tests PendingUrine Culture 11/04/23 [facility] 11-04-2023 Hospital Discharg e instructions Follow Up Care 11/04/2023 07:55:34 With:Rashaun PURVIS Address: [address] [place] [address]- Business (1) When:11/06/2023 Comments:Call for any problems.Appointment has already been scheduledCall physician if symptoms worsenPlease call if you need to rescheduleReturn for contractions closer, longer, harderReturn for decreased movementReturn if ruptured membranes or vaginal bleeding [facility] 08-23-2023 Evaluation + Plan note Diagnostic Tests PendingT3 Total 08/23/23 [facility] 08-18-2023 Note The following Any t Education Materials have been given to the patient: EducationMaterial [facility] 08-18-2023 [facility] Discharg e instructions Patient Education 08/18/2023 08:14:46 Second Trimester of , Mdem-mt-Yfnv Second Trimester of The second trimester of [...] Follow these instructions at home: Medicines Take sqec-our-snqjisu and prescription medicines only as told by [...] a counselor. Where to find more information [place] Association: americanpregnancy.org [place] [employer]nec[employer]: www.acog.org Office [...] provider. Document Revised: 03/09/2021 Document Reviewed: 01/13/2021 [employer] Patient Education 2022 [employer]. [facility] 07-25-2023 Evaluation + Plan note Extrac [...] Diagnostic Tests Pending * Urine Culture 07/25/23 [facility]10-11-2023 Hospital Discharge instructions Patient Education 07/25/2023 [...] to keep your urine pale yellow. Take gqut-eyx-nbhmuvv and prescription medicines only as told by [...] provider. Document Revised: 06/14/2021 Document Reviewed: 06/14/2021 [employer] Patient Education 2022 [employer] Follow Up Care 07/25/2023 08:14:26 With:Luis Carlos Jung Address: [facility] [address], [place] [id number] [facility] (1) When:07/28/2023 09:56:27 [facility]09-14-2023 Evaluation + Plan note Diagnostic Tests Pending * Urine Culture 06/28/23 [facility]09-14-2023 Hospital Discharge instructions Patient Education 06/28/2023 11:39:14 Urinary Tract Infection, Adult, Ziev-vv-Jlkv Urinary Tract Infection, Adult A urinary tract [...] Follow these instructions at home: Medicines Take ufue-iyf-halgnjz and prescription medicines only as told by [...] provider. Document Revised: 05/13/2021 Document Reviewed: 05/13/2021 [employer] Patient Education 2022 [employer]. 06/28/2023 11:39:14 Urinary Tract Infection, Adult, Tcqk-gl-Hywi Urinary Tract Infection, Adult A urinary tract [...] Follow these instructions at home: Medicines Take npxv-fhm-jpsqsxz and prescription medicines only as told by [...] provider. Document Revised: 05/13/2021 Document Reviewed: 05/13/2021 [employer] Patient Education 2022 [employer] Follow Up Care 06/28/2023 10:22:58 With:Fabiana MARION, SAMPSON Buenrostro Address: [address] [place] [id number]- When: Unknown [facility] [id number] Evaluation + Plan noteExtracted from: Title:ED Note Author:Jos Ugalde PA-C te:06/14/23 1. Abdominal pain (R10.9: Un specified abdominal pain) Orders: ABO/Rh Automated Diff Basic Metabolic Panel Beta hCG Quantitative CBC w/ Auto Diff eGFR Extra Blue Tube Extra SST Tube Hepatic Function Panel Lipase Level UA With Cult Reflex US 1st Trimester [facility]08-08-2023 Hospital Discharge instructions Patient Education 05/21/2023 23:23:44 Nonspecific Chest Pain, Adult, Iqnf-ll-Xkig Nonspecific Chest Pain Chest pain can be [...] Follow these instructions at home: Medicines Take rebs-ewv-yonlzhd and prescription medicines only as told by [...] diet. A diet and food and nutrition professor (dietitian) can help you to learn healthy [...] Document Reviewed: 12/15/2021 Elsevier Patient Education 2022 [employer]. 05/21/2023 23:23:44 Nausea and Vomiting, Adult, Mahh-kx-Qyjo Nausea and Vomiting, Adult Nausea is feeling [...] fruit juice). ?Low-calorie sports drinks. Eat bland, dcge-nr-sohinj foods in small amounts as you are able, such as: ?Bananas. ?Applesauce. ?Rice. ?Low-fat (lean) meats. ?Edwards. ?Crackers. Avoid drinking fluids that have a lot of sugar or caffeine in them. This includes energy drinks, sports drinks, and soda. Avoid alcohol. Avoid spicy or fatty foods. General instructions Take kwjr-xhk-geapokz and prescription medicines only as told by your doctor. Drink enough fluid to keep your pee (urine) pale yellow. Wash your hands often with soap and water for at least 20 seconds. If you cannot use soap and water, use hand bonus clerk. Make sure that everyone in your home [...] your doctor about eating and drinking. Take xfxj-wby-denazhm and prescription medicines only as told by your doctor. Contact your doctor if your symptoms get worse or you have new symptoms. Keep all follow-up visits. This information is not intended to replace advice given to you by your health care provider. Make sure you discuss any questions you have with your health care provider. Document Revised: 04/07/2022 Document Reviewed: 04/07/2022 [employer] Patient Education 2022 [employer] 05/21/2023 23:23:44 Abdominal Pain During , Wbyt-xq-Pjpt Abdominal Pain During Belly (abdominal) pain is [...] keep your pee (urine) pale yellow. Take fqpg-ufe-znlhxmv and prescription medicines only as told by [...] provider. Document Revised: 06/14/2021 Document Reviewed: 06/14/2021 [employer] Patient Education 2022 [employer]. Follow Up Care 05/21/2023 20:38:52 With:Luis Carlos Jung Address: [facility] [address] [address] Business (1) When:05/24/2023 Comments:Take the Pepcid once daily until you have completed the course. You can use the Zofran every 6 hours as needed for nausea and vomiting. Please follow-up with your primary care doctor next 2 to 3 days. Please return to the ED for any new or worsening symptoms. [facility]08-07-2023 Evaluation + Plan noteExtracted from: Title:ED [...] day(s), # 15 cap(s), Refills(s) 0, Pharmacy: [facility], 162.6, cm, 05/21/23 20:50:00 EDT, Height/Length Dosing, 75.3, kg, 05/21/23 20:50:00 EDT, Weight Dosing famotidine, 20 mg = 2 mL, Soln-IV, IV Push, Once, Stop date 05/21/23 21:00:00 EDT, STAT, Start date 05/21/23 21:00:00 EDT, 05/21/23 21:00:00 EDT famotidine, 20 mg = 1 tab(s), Oral, Daily, # 14 tab(s), Refills(s) 0, Pharmacy: [facility], 162.6, cm, 05/21/23 [...] UA With Cult Reflex US 1st Trimester [facility]07-17-2023 Evaluation + Plan note Diagnostic Tests Pending * PAP [id number] 04/30/23 * Urine Culture 04/30/23 [facility]07-17-2023 Evaluation + Plan note Diagnostic Tests Pending * RPR with Conf Rfx 04/30/23 * HIV Screen 4th Generation wRfx 04/30/23 * Rubella Antibody IgG 04/30/23 * Hepatitis B Surface Antigen 04/30/23 [facility]07-13-2023 Evaluation + Plan noteExtracted from: Title:ED Note Author:Jos Ugalde PA-C te:04/26/23 Abdominal pain (R10.9: Unspe cified abdominal pain) (Z34.90: Encounter for supervision of normal , unspecified, unspecified trimester) Orders: Beta hCG Quantitative Extra Lav Tube Extra SST Tube US 1st Trimester US Transvaginal [facility]07-13-2023 Hospital Discharge instructions Patient Education 04/26/2023 [...] to keep your urine pale yellow. Take guog-xri-hzzehzi and prescription medicines only as told by [...] provider. Document Revised: 06/14/2021 Document Reviewed: 06/14/2021 [employer] Patient Education 2022 [employer]. Follow Up Care 04/26/2023 08:52:22 With:Luis Carlos Jung Address: [address] [place] [address] [facility] (1) When:04/29/2023 10:58:02 [facility]04-19-2023 Evaluation + Plan noteExtracted from: Title:ED [...] Head eGFR Oxygen Therapy PT & PTT [facility]04-19-2023 Hospital Discharge instructions Patient Education 01/31/2023 [...] Follow these instructions at home: Medicines Take mben-fzm-hsanihw and prescription medicines only as told by your health care provider. Ask your health care provider if the medicine prescribed to you: ?Requires you to avoid driving or using heavy machinery. ?Can cause constipation. You may need to take these actions to prevent or treat constipation: ?Drink enough fluid to keep your urine pale yellow. ?Take nlhk-zsk-hlaffba or prescription medicines. ?Eat foods that are [...] provider. Document Revised: 01/23/2020 Document Reviewed: 11/13/2019 [employer] Patient Education 2022 [employer]. Follow Up Care 01/31/2023 09:42:02 With:THANG BELINDA Address: [address] [place] [id number] Business (1) When:02/03/2023 11:57:07 Comments:Call the office [...] fever, or any new or worsening symptoms. [facility]12[facility]16-[facility]22 [facility] Comment: Electronically Signed By: Luis Carlos Jung MD\.br\Date and Time Signed: 09/29/22 09:25 [id number] [facility] Comment on above:Result Comment: Electronically Signed By: Luis Carlos Jung MD\.br\Date and Time Signed: 09/29/22 09:25 [id number] NoteThe following Patient Education Materials have been given to the patient: [facility]12-09-2022 NoteThe following Patient Education Materials have been given to the patient: [facility]12-09-2022 Hospital Discharge instructions Follow Up Care 09/22/2022 15:11:14 With:Luis Carlos Jung Address[facility] [address] [place] [address]- Business (1) When:09/24/2022 20:30:00 Comments:Appointment has already been scheduledCall for any problems.Call for fever > 100.5 FCall for severe abdominal painCall physician for heavy vaginal bleedingCall physician if symptoms worsenReturn for contractions closer, longer, harderReturn for decreased movementReturn if ruptured membranes or vaginal bleedingCall at 7:30 pm Sunday to confirm induction at 8:30 [facility]12-07-2022 NoteThe following Patient Education Materials have been given to the patient: [facility]12-06-2022 NoteThe following Patient Education Materials have been given to the patient: [facility]12-06-2022 Hospital Discharge instructions Follow Up Care 09/19/2022 01:24:08 With:Luis Carlos Jung Address: [address], [facility] [address] [place] [address] Business (1) When:09/20/2022 Comments:Appointment has already been scheduledCall Dr if fever>100.5 F, heavy bleedingCall for any problems.Call for severe abdominal painCall physician for heavy vaginal bleedingCall physician if symptoms worsenReturn for contractions closer, longer, harderPlease call if you need to rescheduleReturn for decreased movementReturn if ruptured membranes or vaginal bleeding [facility]12-01-2022 NoteThe following Patient Education Materials have been given to the patient: [facility]12-01-2022 Hospital Discharge instructions Patient Education 09/14/2022 11:56:10 Sinus Headache, Mzns-uf-Ousi Sinus Headache A sinus headache happens when [...] on the bottle or box. Medicines Take hydg-ccj-pfgpyli and prescription medicines only as told by [...] face, forehead, ears, or upper teeth. Take hnxv-dyu-rapeglx and prescription medicines only as told by your doctor. If told, apply a warm, moist washcloth to your face. This can help to lessen pain. This information is not intended to replace advice given to you by your health care provider. Make sure you discuss any questions you have with your health care provider. Document Released: 01/31/2012 Document Revised: 09/13/2018 Document Reviewed: 07/12/2018 [employer] Patient Education 2020 [employer] Follow Up Care 09/14/2022 09:13:06 With:Luis Carlos Jung Address: [address], [facility] [address] [place] [address]- Business (1) When:09/20/2022 Comments:Return if ruptured membranes or vaginal bleedingReturn for decreased movementReturn for contractions closer, longer, harderCall physician if symptoms worsenCall for severe abdominal painCall for fever > 100.5 F Drink 8-10 glasses of water/day Use SUDAFED, TYLENOL AND BENADRYL as previouslydirected by Dr Fabiana Longoria - [facility]11-29-2022 NoteThe following Patient Education Materials have been given to the patient: EducationMateriTiffanie [facility]11-29-2022 Hospital Discharge instructions Patient Education 09/12/2022 20:39:28 Third Trimester of , Pkyo-gb-Kjbe Third Trimester of The third trimester is from week 28 through week 40 (months 7 through 9). This trimester is when your unborn baby (fetus) is growing very fast. At the end of the ninth month, the unborn baby is about20 inches in length. It weighs about 6 10 pounds. Follow these instructions at home: Medicines Take etet-vdr-rxobzsz and prescription medicines only as told by [...] 12/26/2010 Document Revised: 01/22/2020 Document Reviewed: 11/06/2017 [employer] Patient Education 2020 [employer]. Follow Up Care 09/12/2022 19:44:10 With:Luis Carlos Jung Address: [address] [place] [address] [facility] (1) When:09/20/2022 Comments:Appointment has already been scheduledCall Dr if fever>100.5 F, heavy bleedingCall for any problems.Call for severe abdominal painCall physician for heavy vaginal bleedingCall physician if symptoms worsenPlease call if you need to rescheduleReturn for contractions closer, longer, harderReturn for decreased movementReturn if ruptured membranes or vaginal bleeding [facility]11-25-2022 NoteThe following Patient Education Materials have been given to the patient: [facility] Dis[facility] Follow Up Care 09/08/2022 08:14:23 With:Luis Carlos Jung Address: [address], [place] [address]- [facility] (1) When:09/11/2022 Comments:Return for contractions closer, longer, harderReturn for decreased movementReturn if rupturedmembranes or vaginal bleeding [facility]11-23-2022 Hospital Discharge instructions Patient Education 09/05/2022 [...] the coronavirus come from? In September 2019, [place] told the World Health Organization (WHO) of several cases of lung disease (human respiratory illness). These cases were linked to an open seafood and livestock market in the [facility]. The link to the seafood and [...] and virus naming World Health Organization (WHO): www.who.int/emergencies/diseases/qzlnc-yskefaaaeiz-2753/technical-g uidance/bqbbmz-xkf-pajwosuobmy-disease-(covid-2019)-wpg-utl-hrqwj-fmvq-ynzmkf-st Who is at risk for complications from [...] relieve his or her symptoms by using eguv-zqv-zwxmoge medicines that treat sneezing, coughing, and runny [...] water are not available, use alcohol-based hand bonus clerk. Avoid touching your face, mouth, nose, or [...] Prevention (CDC): www.cdc.gov/coronavirus/2019-ncov/travelers/index.html World Health Organization (WHO): www.who.int/emergencies/diseases/jtzht-uiwjpphwxfh-5400/travel-advice Know the risks and take action to [...] water are not available, use alcohol-based hand bonus clerk. Cough or sneeze into a tissue, sleeve, [...] in hot, soapy water or use a risk adjustment specialist. Air-dry your dishes. Wash laundry in [...] Health Organization (WHO) Information and news updates: www.who.int/emergencies/diseases/rfufd-ltpgmhqumnh-5900 Coronavirus health topic: www.who.int/health-topics/coronavirus Questions and answers on COVID-19: www.who.int/news-room/q-a-detail/g-s-mpmfguovdrotk Global tracker: IMT [place] [employer] (AAP) Information for families: www.healthychildren.org/Togolese/health-issues/conditions/chest-lungs/Pages /7109-Zyjcq-Ephgvbbkdgt.aspx The coronavirus situation is changing rapidly. Check [...] 01/27/2020 Document Revised: 01/27/2020 Document Reviewed: 01/27/2020 [employer] Patient Education 2019 [employer]. 09/05/2022 22:13:40 COVID-19 COVID-19 COVID-19 is a [...] to fight infection (immunocompromised). Live in a fdc or long-term care facility. Have a long-term [...] managed at home with rest, fluids, and xplo-ddp-gzwouef medicines. Treatment for a serious infection usually [...] are safe for you. General instructions Take mhnq-fvq-enffrdg and prescription medicines only as told by [...] water are not available, usean alcohol-based hand bonus clerk. ?Avoid touching your mouth, face, eyes, or [...] water are not available, use alcohol-based hand bonus clerk. Stay away from other members of your [...] have a weak immunity, live in a fdc, or have chronic disease. There is no [...] 11/06/2019 Document Revised: 02/26/2020 Document Reviewed: 11/06/2019 [employer] Patient Education 2020 [employer]. Follow Up Care 09/05/2022 20:08:29 With:Luis Carlos Jung Address: [address] [place], [place] [address] [address] Business (1) When:09/08/2022 21:42:10 Comments:Use the albuterol inhaler 2 puffs every 4 hours for the next 2 to 3 days, you can use the Zofran every 6 hours as needed for nausea and vomiting. Please follow-up with your primary care doctor in thenext 2 to 3 days. Please return to the ED for any new or worsening symptoms. With:THANG MILLAN Address: [address] [place] [id number] Business (1) When:09/08/2022 21:42:06 [facility]11-22-2022 Evaluation + Plan noteExtracted from: Title:ED [...] Nausea/Vomiting, # 12 tab(s), Refills(s) 0, Pharmacy: [facility], 163, cm, 09/05/22 [...] Therapy PT & PTT Rapid COVID Antigen ([facility]) Saline Lock Insert Troponin 0 Hr. XR Chest Single View Future Appointments Appointment Date:09/06/2022 07:00:00 AM Scheduled [facility]11-21-2022 Evaluation + Plan note Diagnostic Tests Pending * Group B Streptococcus colonization by PCR 09/04/22 [facility]11-17-2022 NoteThe following Patient Education Materials have been given to the patient: EducationMateriTiffanie [facility]11-17-2022 Hospital Discharge instructions Patient Education 08/31/2022 00:56:47 Third Trimester of , Msmf-vs-Srev Third Trimester of The third trimester is from week 28 through week 40 (months 7 through 9). This trimester is when your unborn baby (fetus) is growing very fast. At the end of the ninth month, the unborn baby is about20 inches in length. It weighs about 6 10 pounds. Follow these instructions at home: Medicines Take gcws-syi-byfgutm and prescription medicines only as told by [...] 12/26/2010 Document Revised: 01/22/2020 Document Reviewed: 11/06/2017 [employer] Patient Education 2020 [employer]. Follow Up Care 08/30/2022 21:31:53 With:Luis Carlos Jung Address: [address] [address]- Business (1) When:09/04/2022 Comments:Call for any problems.Call for severe abdominal painCall physician for heavy vaginal bleedingReturnfor contractions closer, longer, harderReturn for decreased movementReturn if ruptured membranes or vaginal bleeding [facility]11-08-2022 Hospital Discharge instructions Follow Up Care 08/22/2022 14:58:59 With:Dr. 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 [facility]11-04-2022 Evaluation + Plan note Diagnostic Tests Pending * Urine Culture 08/18/22 [facility]11-04-2022 Hospital Discharge instructions Follow Up Care 08/18/2022 03:47:49 With:Luis Carlos Jung Address: [address], [address] [address]- Business (1) When:08/21/2022 08:45:00 Comments:Appointment has already been scheduled, please keep scheduled apptCall for any problems.Call physician if symptoms worsen [facility]10-30-2022 Hospital Discharge instructions Patient Education 08/13/2022 [...] 10/31/2007 Document Revised: 10/21/2019 Document Reviewed: 11/09/2016 [employer] Patient Education 2020 [employer] 08/13/2022 19:55:11 Monitoring Overview Monitoring Overview [...] 09/21/2003 Document Revised: 06/25/2018 Document Reviewed: 04/30/2017 [employer] Patient Education 2020 [employer] Follow Up Care 08/13/2022 17:29:42 With:Luis Carlos Jung Address: [address], [address] [place] [phone]- Business (1) When:1 to 2 days Comments:Call for any problems.Return for contractions closer, longer, harderReturn for decreased movementReturn if ruptured membranes or vaginal bleeding [facility]10-13-2022 Hospital Discharge instructions Follow Up Care 07/27/2022 01:12:54 With:Dr. Jung [phone] Address:Unknown When:09/24/2022 20:30:00 Comments:Call for any problems.Return if ruptured membranes or vaginal bleedingReturn for decreased movementcontractions every 5 minutes lasting 45 seconds for an hourCall Sunday night at 7:30 PM to assure bed availability for induction [facility]10-12-2022 Hospital Discharge instructions Patient Education 07/26/2022 [...] Follow these instructions at home: Medicines Take qgax-eqi-xjjbkjo and prescription medicines only as told by [...] as fried or sweet foods. ?Take an pdsv-xbh-fhhxovv or prescription medicine for constipation. If you [...] 12/28/2009 Document Revised: 05/28/2019 Document Reviewed: 11/11/2018 [employer] Patient Education 2020 [employer]. Follow Up Care 07/26/2022 07:56:25 With:Luis Carlos Jung Address: [address] [facility] [place] [address] Business (1) When:08/07/2022 07:45:00 [facility]10-03-2022 Evaluation + Plan noteExtracted from: Title:ED Note Author:Hi Carmona PA-C te:07/17/22 UTI (urinary tract infection ) (N39.0: Urinary tract infection, site not specified) Orders: cephalexin, 500 mg = 1 cap(s), Oral, q12hr, X 5 day(s), # 10 cap(s), Refills(s) 0, Pharmacy: [facility], 162.5, cm, 07/17/22 9:09:00 EDT, Height/Length Dosing, 80, kg, 07/17/22 9:09:00 EDT, Weight Dosing Patient Specific Meds, Each, Misc, Once, Stop date 07/17/22 9:10:34 EDT, Physician Stop, 07/17/22 9:10:34 EDT Influenza A&B Ag Rapid COVID Antigen ([facility]) UA With Cult Reflex [facility]10-03-2022 Hospital Discharge instructions Patient Education 07/17/2022 [...] 01/26/2012 Document Revised: 01/23/2020 Document Reviewed: 09/04/2019 [employer] Patient Education 2019 [employer]. 07/17/2022 09:55:44 Urinary Tract Infection, Adult Urinary [...] Treatment for this condition includes: Antibiotic medicine. Fiae-zpm-tkbakem medicines to treat discomfort. Drinking enough water [...] Follow these instructions at home: Medicines Take aumj-tdx-mnahgwb and prescription medicines only as told by [...] 07/11/2006 Document Revised: 09/18/2019 Document Reviewed: 04/10/2019 [employer] Patient Education 2020 [employer]. Follow Up Care 07/17/2022 09:04:38 With:Luis Carlos Jung Address: [address] [place], [place] [address] [address] Business (1) When:07/20/2022 09:46:49 With:THANG MILLAN Address: [address] [place] [address] Business (1) When:07/20/2022 09:46:41 Comments:Follow-up with your primary care provider in 3 to 5 days. If symptoms worsen, do not improve, or new symptoms arise please report back to emergency department for further evaluation. [facility]09-14-2022 Evaluation + Plan note Diagnostic Tests Pending * RPR with Conf Rfx 06/28/22 [facility]09-12-2022 Hospital Discharge instructions Patient Education 06/26/2022 [...] 09/21/2003 Document Revised: 06/25/2018 Document Reviewed: 04/30/2017 [employer] Patient Education 2020 [employer] 06/26/2022 21:35:59 Form - Movement Counts [...] 06/26/2022 20:41:33 With:Luis Carlos Jung Address[facility] [address] [facility] [address] [place] [address] [place] [address] [facility] (1) When:07/03/2022 07:45:00 Comments:Call for any problems.Please call if you need to rescheduleReturn for decreased movement [facility]09-05-2022 Hospital Discharge instructions Follow Up Care 06/18/2022 23:33:38 With:Luis Carlos Jung Address: [address], [facility] [address] [place] [address]- Business (1) When:5 to 7 days Comments:Appointment has already been scheduledCall for any problems.Call for fever > 100.5 FCall for severe abdominal painCall physician for heavy vaginal bleedingPlease call if you need to rescheduleReturn for contractions closer, longer, harderReturn for decreased movementReturn if ruptured membranes or vaginal bleeding [facility]07-18-2022 Hospital Discharge instructions Follow Up Care 05/01/2022 17:08:54 With:Luis Carlos Jung Address: [address], [facility] [address] [place] [address]- Business (1) When:05/09/2022 Comments:Return if ruptured membranes or vaginal bleedingReturn for contractions closer, longer, harderCall physician if symptoms worsenCall physician for heavy vaginal bleedingCall for severe abdominal painCall for fever > 100.5 FCall for any problems. drink more fluids including gatorade, take milk of magnesia twice /day until yo u have bowel movements, benefiber daily [facility]06-19-2022 Evaluation + Plan note Diagnostic Tests Pending * Urine Culture 04/02/22 [facility]06-19-2022 Hospital Discharge instructions Patient Education 04/02/2022 10:22:48 Second Trimester of , Uotd-bv-Khzo Second Trimester of The second trimester is [...] Follow these instructions at home: Medicines Take zrra-gyv-chejqvc and prescription medicines only as told by [...] 12/26/2010 Document Revised: 01/23/2020 Document Reviewed: 11/06/2017 [employer] Patient Education 2020 [employer]. 04/02/2022 10:22:48 Vaginal Bleeding During , Second [...] says that this is safe. Medicines Take zjix-vcm-dclplhd and prescription medicines only as told by [...] 07/11/2006 Document Revised: 01/20/2020 Document Reviewed: 01/03/2018 [employer] Patient Education 2019 [employer]. Follow Up Care 04/02/2022 06:00:26 With:Dr. Jung [phone] Address:Unknown When:2 to 3 days Comments:Call for any problems.Call physician if symptoms worsen [facility]06-09-2022 Hospital Discharge instructions Patient Education 03/23/2022 20:39:21 Second Trimester of , Qysj-ge-Kxjk Second Trimester of The second trimester is [...] Follow these instructions at home: Medicines Take inqv-daa-dglwwdi and prescription medicines only as told by [...] 12/26/2010 Document Revised: 01/23/2020 Document Reviewed: 11/06/2017 [employer] Patient Education 2020 [employer]. 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 Avoid heavy [...] grounds. You are around people who have Latvian measles, fifth disease, or chickenpox. You have [...] 03/19/2009 Document Revised: 01/22/2020 Document Reviewed: 10/09/2017 [employer] Patient Education 2020 [employer]. 03/23/2022 20:39:21 Abdominal Pain During , Tqrf-ac-Weqy Abdominal Pain During Belly (abdominal) pain is [...] keep your pee (urine) pale yellow. Take qlle-pog-mdswfuk and prescription medicines only as told by [...] 09/19/2010 Document Revised: 01/19/2020 Document Reviewed: 01/03/2018 [employer] Patient Education 2020 [employer] Follow Up Care 03/23/2022 19:35:57 With:Luis Carlos Jung Address: [address], [place] [id number] [facility] (1) When:03/27/2022 10:00:00 Comments:Call for any problems. Call [facility] first, ask to speak directly to Dr. Jnug before heading to hospital unless an emergency. Call for severe abdominal pain or worsening pain.Return if vaginal bleedingor ruptured membranes.Wear belly band as much as possible, especially as your belly grows in . [facility]05-04-2022 Evaluation + Plan note Diagnostic Tests Pending * RPR with Conf Rfx 02/15/22 * HIV Screen 4th Generation wRfx 02/15/22 * Rubella Antibody IgG 02/15/22 * Hepatitis B Surface Antigen 02/15/22 * Urine Culture 02/15/22 [facility]06-18-2021 NoteHNO ID: [id number] Author: Bert Negrete, DO Service: ? Author Type: Fellow Type: Progress Notes Filed: 04/01/2021 9:15 AM Note Text: [facility] [address] [place] [address] Martha Webb (DrHerminia) [address] [facility] [address] PCP: Thang Millan NP Accompanied by: Mother [...] bed and continue this dose - rizatriptan (MAXALT-MAIL DISTRIBUTION SCHEME EXAMINER) 10 mg disintegrating tablet Take 1 [...] Transformed Score (ran (more content not included)... [facility]06-10-2021 NoteHNO ID: [id number] Author: RT Oliva(R) Service: Nuclear Medicine Author Type: Compressor Mechanic Type: Progress Notes Filed: 03/24/2021 9:39 AM [...] March 24, 2021 TIME: 9:38 AM PAGER/CONTACT #:[facility]05-27-2021 NoteHNO ID: [id number] Author: Martha Webb MD Service: ? Author Type: Physician Type: Progress Notes Filed: 03/10/2021 12:03 PM Note Text: This note was created using Health[employer] Craig Ranchriter. Subjective Susan Bro is a 25 year [...] biliary ductal dilatation is (more content not included)...[facility] course Narrative No data available for this section [facility] No data available for this section [facility] No data available for this section [facility] Summary Purpose Family History No Family [...] FoundDocuments on File Type Date Recorded Patient Proposal Manager Expl anation Advance Directives and Livin g Will 10/14/2020 10:22 AM Documents on File Type Date Recorded Patient Proposal Manager Expl anation ACP-Advance Directive ACP-Power of Salesperson Fashion Accessories Discharge Instructions * Discharge Instr - Care Coordination* Andra Schmid RN - 10/14/2020 11:43 AM EST [facility] Trust the experts at [facility] to meet your healthcare needs. When you make an appointment with [facility], it's the start of a long-lasting partnership that's committed to your health. We provide the very best prevention, wellness and illness care, and give you access to the advanced medical services and expert treatment available at [facility]. Please note that the provider listed below is accepting patients in your area. Martin: [address] [place] [address] MD Debby Lala MD Christina Spring [facility] For the most up-to-date information on a care provider in your community, use the Find a Doctor tool on [email or web address] [facility] * Attachments The following attachments cannot be sent through Care Everywhere. * Vertigo (Togolese) * Arik Maneuver: Vertigo: Exercises (Togolese) documented in this encounter* Instructions* Bakari Valente [...] be sent through Care Everywhere. * Bruises (Togolese) * Contusion (Togolese) documented in this encounter Assessments Diagnosis Vertigo- Primary Dizziness and giddiness Diagnosis Contusion of right knee, initial encounter Contusion of multiple sites of right shoulder and upper arm, initial encounter Additional Source Comments INFORMATION SOURCE (unrecogn ized section and content) DATE CREATED AUTHOR 04/09/2018 [facility] DATE CREATED AUTHOR AUTHOR'S ORGANIZ ATION 08/10/2020 [facility] DATE CREATED AUTHOR AUTHOR'S ORGANIZ ATION 09/07/2020 [facility] DATE CREATED AUTHOR AUTHOR'S ORGANIZ ATION 10/20/2020 [facility] DATE CREATED AUTHOR AUTHOR'S ORGANIZ ATION 03/18/2021 [facility] DATE CREATED AUTHOR AUTHOR'S ORGANIZ ATION 11/15/2021 [facility] DATE CREATED AUTHOR AUTHOR'S ORGANIZ ATION 08/25/2023 [facility] DATE CREATED AUTHOR AUTHOR'S ORGANIZ ATION 11/07/2023 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 denies hitting head or any LOC Shoulder Pain rt shoulder, fell ov er dust guzman onto her right side. Susan Griffiths PA-C - 10/14/2020 10:44 AM Amena Cantrell RN - 10/14/2020 10:32 AM EST ED Notes (unrecognized secti on and content) [facility] ED Note: NAME: Susan Bro 24 y.o. CSN: [id number] PCP: Physician No History: Chief Complaint: Dizziness [...] file Gets together: Not on file Attends pentecostalism service: Not on file Active member of [...] does have reproducible vertigo with position changes. Aoqkbb-rz-tboy maneuvers are intact without dysmetria. There is negative Romberg sign. There was no ataxia on ambulation. Psychiatric: Mood and Affect: Mood normal. Behavior: Behavior normal. Thought Content: Thought content normal. Laboratory & Radiological Imaging (if done): Labs Reviewed URINALYSIS - Abnormal; Notable for the following components: Result Value Clarity, Urine Cloudy (*) Specific [place] 1.028 (*) pH, Urine 8.0 (*) Protein, [...] at the following links: For Healthcare Providers: https://www.fda.gov/media/324383/download For Patients: https://www.fda.gov/media/019869/download HCG URINE, QUALITATIVE - Normal CBC AND DIFFERENTIAL Narrative: The following orders were created for panel order CBC w/ Diff. Procedure Abnormality Status --------- ------ CBC Auto Differential[[id number]] Abnormal Final result Please view results for these tests on the individual orders. HCG URINE, QUALITATIVE URINALYSIS CT Head Or Brain Without Contrast Final Result 1. No acute intracranial hemorrhage, focal edema or mass effect. Workstation ID: [id number] EKG: Normal sinus rhythm with sinus arrhythmia RATE: 74 AXIS: Normal axis INTERVALS: MI interval of 178 ms, QRS duration of [...] Antivert. She is referred to follow-up with [facility] or [place] that she does not currently have a [...] needed for dizziness . Susan Griffiths Physicians Dietetic Technician Registered [facility] Emergency Department Susan Griffiths PA-C 10/14/20 1203 Special isolation precautions are in place with signage outside this patient's room. This managed care provider performs hand hygiene and enters the [...] or prosecute any alcohol or drug abuse patient.[facility] Care Team (unrecognized sect ion and content) Personnel Name: THANG MILLAN CNP Address: [address] [place], [place] [id number] Personnel Name: THANG MILLAN CNP Address: [address] [place] [address] [place] Personnel Name: THANG MILLAN CNP Address: [address] [place] [address]- [place] Personnel Name: THANG MILLAN CNP Address: [address] [place] [address]- [place] Personnel Name: THANG MILLAN CNP Address: [address] [place] [address]- [place] Personnel Name: THANG MILLAN CNP Address: [address] [place] [address]- [place] Personnel Name: THANG MILLAN CNP Address: [address] [place] [address]- [place] Personnel Name: THANG MILLAN CNP Address: [address] [place] [address]- [place] Personnel Name: THANG MILLAN CNP Address: Address: [address] [place] [address]- [place] Personnel Name: THANG MILLAN CNP Address: Address: [address] [place] [address]- [place] Personnel Name: THANG MILLAN CNP Address: Address: [address] [place] [address]- [place] Personnel Name: THANG MILLAN CNP Address: Address: [address] [place] [address]- [place] Personnel Name: THANG MILLAN CNP Address: Address: [address] [place] [address]- [place] Personnel Name: THANG MILLAN CNP Address: Address: [address] [place] [address]- [place] Personnel Name: THANG MILLAN CNP Address: Address: [address] [place] [address]- [place] Personnel Name: THANG MILLAN CNP Address: Address: [address] [place] [address]- [place] Personnel Name: THANG MILLAN CNP Address: Address: [address] [place] [address]- [place] Personnel Name: THANG MILLAN CNP Address: Address: [address] [place] [id number] Personnel Name: THANG MILLAN CNP Address: Address: [address] [place] [phone] Personnel Name: THANG MILLAN CNP Address: Address: [address] [place] [address]- Personnel Name: THANG MILLAN CNP Address: Address: [address] [place] [phone] Personnel Name: THANG MILLAN CNP Address: Address: [address] [place] [phone] Personnel Name: THANG MILLAN CNP Address: Address: [address] [place] [phone]- Personnel Name: THANG MILLAN CNP Address: Address: [address] [place] [address]- Personnel Name: THANG MILLAN CNP Address: Address: [address] [place] [id number] Personnel Name: THANG MILLAN CNP Address: Address: [address] [place] [address] Personnel Name: Luis Carlos Jung MD Address: Address: [facility] [address] Personnel Name: Luis Carlos Jung MD Address: Address: [facility] [address] Personnel Name: Luis Carlos Jung MD Address: Address: [facility] [address] Personnel Name: Luis Carlos Jung MD Address: Address: [facility] [address] Personnel Name: Luis Carlos Jung MD Address: Address: [facility] [address] Personnel Name: Rashaun PURVIS DO Address: Address: [address] , [facility] Herminia Lopez[address] Personnel Name: NONE, XXXX Address: Address: [facility] Personnel Name: LLC, GENERIC Personnel Name: [...] BE BASED ON THE PRIMARY CLINICAL RECORDS. [employer] [facility]. provides no warranty or guarantee of the accuracy or completeness of information in this document.
== END 2023-11-21 08:27 | disposition home or self-care (01) ==
LOC: NOMS 08:27
PROVIDERS: Visit Provider Obstetrics & Gynecology
DX: O36.63X1 Maternal care for excessive fetal growth, third trimester, fetus 1 (principal); Z3A.35 35 weeks gestation of pregnancy; O26.843 Uterine size-date discrepancy, third trimester
CPT/HCPCS: 76816

== ENCOUNTER 2023-11-23 07:10 | Outpatient (OUT) | payer OTHER, SELFPAY ==
--- OUTSIDE RECORDS SUMMARY | 2023-11-23 07:15 | XMS_ITS | CCD ---
Author Name Unknown Address [address] [place] [address] Organization [facility] Care Team Providers Care Director Of Manufacturing Operations Name Role Phone NKECHI TORRES Unavailable Unavaila BAKARI Liriano Attending Unavailable THANG MILLAN Primary Care Unavailable No, Physician Primary Care Provider Unavailerum e RONN, PHYSICIAN Primary Care Unavailable REGINE CHOW Admitting Unavailable REGINE CHOW Attending Unavailable Thang Millan Primary Care Provider Unavailable Primary Care Provider UnavailTHANG Mauro Primary Care Physician Luis Carlos Jung Primary Care Physician Rashaun AMADOR Primary Care Physician NONE, XXXX Primary Care Physician [employer], GENERIC Primary Care Physician Unavailab le DO Gopi Rodriguez Attending Unavailable Kristian Guillermo Attending Unavailable Luis Carlos Jung Admitting Unavailable Luis Carlos uJng Attending Unavailable ALLISON MYRICK Attending Unavail able [...] Roverto V. Attending Unavailabl e Spasic, Roverto Barron Admitting [...] Noel Attending Unavailable ANGELA, DODIE Attending Unavailable PERRY, RASHAUN Attending Unavailable PERRY, RASHAUN Attending Unavailable PERRY, RASHANU Attending Unavailable PERRY, RASHAUN Attending Unavailable ANGELA, DODIE Attending Unavailable Unavailable Primary Care Provider Unavailabl e Allergies Allergy Classification Reported Allergen(s) Allergy Type Date of Onset Reaction(s) Facility (20 sources) amoxicillin; Translations: [AMOXICILLIN] Drug Allergy 7 [facility] Repository (20 sources) penicillin; Translations: [PENICILLIN] Drug Allergy 7 [facility] Repository (5 sources) Penicillins; Translations: [PENICILLINS] Propensity to adverse reactions to drug 0 [place], [place] (2 sources) Penicillin G procaine Allergy to substance 3 Rash [facility] Medications Current Medications Medication Drug Class(es) Dates [...] day(s), # 15 cap(s), Refills(s) 0, Pharmacy: [facility], 162.6, cm, 05/21/23 20:50:00 EDT, Height/Length Dosing, 75.3, kg, 05/21/23 20:50:00 EDT, Weight Dosing Start Date: 05/21/23 Stop Date: 05/26/23 Status: Ordered Start: 08-18-2022 End: 08-25-2022 take 1 capsule by mouth four times daily Keflex 500 mg Cap 500 mg = 1 cap(s), Oral, QID, X 7 day(s), # 28 cap(s), Refills(s) 0, Pharmacy: [facility] 1986, 162.5, cm, 08/18/22 4:15:00 EDT, Height/Length Dosing, 80, kg, 08/18/22 4:15:00 EDT, Weight Dosing Start Date: 08/18/22 Stop Date: 08/25/22 Status: Ordered Start: 07-17-2022 End: 07-22-2022 take 1 capsule by mouth every twelve hours Keflex 500 mg Cap 500 mg = 1 cap(s), Oral, q12hr, X 5 day(s), # 10 cap(s), Refills(s) 0, Pharmacy: [facility] 1986, 162.5, cm, 07/17/22 9:09:00 EDT, Height/Length Dosing, 80, kg, 07/17/22 9:09:00 EDT, Weight Dosing Start Date: 07/17/22 Stop Date: 07/22/22 Status: Ordered Start: 04-02-2022 End: 04-09-2022 take 1 capsule by mouth four times daily Keflex 500 mg Cap 500 mg = 1 cap(s), Oral, QID, X 7 day(s), # 28 cap(s), Refills(s) 0, Pharmacy: [facility], 160, cm, 04/02/22 6:28:00 EDT, Height/Length Dosing, 69.1, kg, 04/02/22 6:35:00 EDT, Weight Dosing Start Date: 04/02/22 Stop Date: 04/09/22 Status: Ordered cimetidine 300 mg oral tablet (3 sources) Histamine-2 Receptor Antagonist Start: 04-02-2022 cimetidine 300 mg oral tablet Refills(s) 0 Start Date: 04/02/22 Status: Ordered citalopram 20 mg oral tablet (2 sources) Serotonin Reuptake Inhibitor Start: 11-15-2023 End: 02-13-2024 take 1 tablet by mouth in the morning citalopram (CeleXA) 20 MG tablet Indications: Anxiety, generalized (CMS/HCC) Take 1 tablet (20 mg) by mouth in the morning. 30 tablet 2 11/15/2023 02/13/2024 Active Colace (3 sources) Start: 08-18-2023 Colace Refills(s) 0 Start Date: 08/18/23 Status: Ordered docusate sodium 50 mg / sennosides, long term 8.6 mg oral tablet (2 sources) senna-docusate (Colace 2-IN-1) 8.6-50 MG tablet DULoxetine 20 mg delayed release oral capsule [...] Daily, # 14 tab(s), Refills(s) 0, Pharmacy: [facility], 162.6, cm, 05/21/23 20:50:00 EDT, Height/Length Dosing, 75.3, kg, 05/21/23 20:50:00 EDT, Weight Dosing Start Date: 05/21/23 Status: Ordered ibuprofen 600 mg oral tablet (11 sources) Nonsteroidal Anti-inflammatory Drug Start: 09-27-2022 take 1 tablet by mouth every six hours ibuprofen 600 mg Tab 600 mg = 1 tab(s), Oral, q6hr, # 15 tab(s), Refills(s) 0, Pharmacy: [facility], 162.5, cm, 09/24/22 21:51:00 EST, Height/Length Dosing, 78.6, kg, 09/24/22 21:51:00 EST, Weight Dosing Start Date: 09/27/22 Status: Ordered levothyroxine sodium 0.125 mg oral tablet (20 sources) l-Thyroxine Start: 11-04-2023 take 1 tablet by mouth once daily levothyroxine 125 mcg (0.125 mg) Tab 125 mcg = 1 tab(s), Oral, Daily, Refills(s) 0 Start Date: 11/04/23 Status: Ordered Start: 09-25-2023 End: 12-24-2023 take 1 tablet by mouth before mealtime levothyroxine (Synthroid) 125 MCG tablet Indications: Hypothyroidism (acquired) (CMS/HCC) Take 1 tablet (125 mcg) by mouth in the morning. Take before meals. 90 tablet 0 09/25/2023 12/24/2023 Active Start: 01-07-2023 take 1 tablet by kenn th in the morning levothyroxine (Synthroid, Levoxyl) 25 MCG tablet Take 25 mcg by mouth in the morning. 0 01/07/2023 Active Start: 03-03-2022 take 1 tablet by kenn [...] Refills(s) 0 Start Date: 03/03/22 Status: Ordered magnesium oxide 400 mg oral tablet (2 sources) Start: 10-31-2023 End: 11-30-2023 take 1 tablet by mouth in the morning magnesium oxide (Mag-Ox) 400 MG tablet Indications: Nonintractable episodic headache, unspecified headache type Take 1 tablet (400 mg) by mouth in the morning. 30 tablet 6 10/31/2023 11/30/2023 Active meclizine hydrochloride 25 mg oral tablet (3 sources) Antiemetic Start: 11-30-2021 take 1 tablet by mouth three times daily as needed for dizziness meclizine 25 mg Tab 25 mg = 1 tab(s), Oral, TID, PRN for dizziness, # 15 tab(s), Refills(s) 0, Pharmacy: [facility] [address], 163, cm, 11/30/21 7:18:00 EST, [...] Nausea/Vomiting, # 12 tab(s), Refills(s) 0, Pharmacy: [facility], 163, cm, 09/05/22 [...] day(s), # 6 tab(s), Refills(s) 0, Pharmacy: [facility], 163, cm, 06/28/23 10:39:00 EDT, Height/Length Dosing, 74.8, kg, 06/28/23 10:39:00 EDT, Weight Dosing Start Date: 06/28/23 Stop Date: 06/30/23 Status: Ordered Multivitamins (20 sources) Start: 03-03-2022 take 1 tablet by mouth once daily Multivitamins 1 tab(s), Oral, Daily, Refill(s) 0 Start Date: 03/03/22 Status: Ordered MV-Min-Fe Fum-FA-DHA ( 1 PO) (2 sources) MV-Min- Fe Fum-FA-DHA ( 1 PO) Take 1 each by mouth in the morning. 0 Active tiZANidine 4 mg oral tablet (1 source) Central alpha-2 Adrenergic Agonist Start: 08-09-2020 take 1 tablet by mouth every eight hours as needed for pain tiZANidine (ZANAFLEX) 4 MG tablet Take 1 tablet by mouth every 8 hours as needed (Shoulder pain) 12 tablet 0 08/09/2020 Active 24 hr venlafaxine 37.5 mg extended release oral capsule (3 sources) Serotonin and Norepinephrine Reuptake Inhibitor Start: 12-06-2022 take 1 capsule by mouth once daily at mealtime venlafaxine XR (Effexor XR) 37.5 MG 24 hr capsule TAKE 1 CAPSULE BY MOUTH ONCE DAILY WITH FOOD 0 12/06/2022 Active take 1 tablet by mouth twice pooja ly venlafaxine (EFFEXOR) 75 MG tablet Take 75 mg by mouth 2 (two) times a day . 0 Active Zofran ODT 4 mg Tab-Dis (6 sources) Start: 05-21-2023 take 1 tablet by mouth every eight hours Zofran ODT 4 mg Tab-Dis 4 mg = 1 tab(s), Oral, q8hr, # 12 tab(s), Refills(s) 0, Pharmacy: [facility], 162.6, cm, 05/21/23 [...] 07-06-2021 Chronic Other and delivery including normal (12 sources) Normal ; Translations: [Encounter for supervision [...] (20 sources) Onset: 03-23-2022 Resolved: 09-25-2022 03-23-2022 Unclassified (2 sources) OB Reminders Onset: 07-17-2023 07-17-2023 Urinary tract infections (3 sources) Urinary tract [...] Test Name Value Interpretation Reference Range Facility Urinalysis macro (dipstick) panel (U)on 11-20-2023 Bilirubin, UA Negative Negative - 4(70) +++ mg/dL [facility] Blood, UA Negative Negative - 50 Tod/mcL [facility] Clarity, UA Clear [facility] Color, UA Yellow [facility] Glucose, UA Negative Negative - 2000(110) ++++ mg/dL [facility] Interpretation and review of laboratory results Normal [facility] Ketones, UA Negative Negative - 160(16) ++++ mg/dL [facility] Leukocytes, UA Negative Negative - 500+++ Rosemarie/mcL [facility] Nitrite, UA Negative Negative - Positive [facility] pH, UA 7.0 5 - 9 [facility] Protein, UA Negative Negative - 2000(20) ++++ mg/dL [facility] Spec Grav, UA 1.025 1 - 1.03 [facility] Urobilinogen, UA 1.0 0.2 - 12 mg/dL [facility] URINALYSISOrdered By: An Mccarty on 11-04-2023 Bacteria [...] AM) Normal Negative [facility] UA Auto SS [place].plasma/[place] .RBC (Bld) [Mass ratio] 0-3 /HPF Normal [...] Desc Clean Catch (11/04/23 8:05 AM) Normal [facility] UA Auto SS Urobilinogen Qn (U) 0.7003962 {Rola'U}/dL Normal 0.0 - 1.0 EU/dL [facility] UA Auto SS WBC Auto Ql (U) 1+ *ABN* (11/04/23 8:05 AM) Invalid Interpretation Code Negative [facility] UA Auto SS WBC LM.HPF (Urine sed) [#/Area] 6-15 /HPF Invalid Interpretation Code 0-5/HPF [facility] UA Auto SS T3 Totalon 08-24-2023 T3 [Mass/Vol] 146 ng/dL Invalid Interpretation Code 71-180 [facility] Comment on above: Result Comment: Perf ormed at: [facility] [address] [place], [place] [id number] PhD Caroline East Performed By: #### 2 585766, 43780845, 0647838, 55273333, 9718314, 8148376, 71935564 ####[facility] [address] [place] [address] Auto Diffon 08-23-2023 Basophils/100 WBC (Bld) 0.9 % Normal 0.0-2.0 [facility] Comment on above: Order Comment: Order Added by Discern Expert. Performed By: #### 2 315284, 99718703, 6314163, 71252867, 6844717, 7896030, 64416124 ####[address] [address] Basophils/Leukocytes Auto (Bld) [Pure # fraction] 0.1 E9/L Normal 0.0-0.2 [facility] Comment on above: Order Comment: Order Added by Discern Expert. Performed By: #### 2 026287, 52683454, 0362511, 38556713, 4897640, 9283769, 50157439 ####[facility] [address] [place] [address] Eosinophils/100 WBC (Bld) 1.3 % Normal 0.0-8.0 [facility] Comment on above: Order Comment: Order Added by Discern Expert. Performed By: #### 2 889397, 03414882, 2164305, 67125701, 6212310, 2889486, 48580443 ####[address] [address] Eosinophils/Leukocytes Auto (Bld) [Pure # fraction] 0.1 E9/L Normal 0.0-0.5 [facility] Comment on above: Order Comment: Order Added by Discern Expert. Performed By: #### 2 757450, 74737239, 8012528, 44426606, 2163711, 5489331, 25145149 ####[address] [place] [address] Lymphocytes/100 WBC (Bld) 17.7 % Normal 14.0-50.0 [facility] Comment on above: Order Comment: Order Added by Discern Expert. Performed By: #### 2 405987, 17959436, 3706947, 28278212, 8983414, 3395368, 18372237 ####[address] [place] [address] Lymphocytes/Leukocytes Auto (Bld) [Pure # fraction] 1.4 E9/L Normal 1.0-4.0 [facility] Comment on above: Order Comment: Order Added by Discern Expert. Performed By: #### 2 122002, 56000491, 4277885, 60192515, 8125580, 2129448, 86393028 ####[address] [address] Monocytes/100 WBC (Bld) 5.1 % Normal 4.0-14.0 [facility] Comment on above: Order Comment: Order Added by Discern Expert. Performed By: #### 2 741879, 46921364, 6613961, 33510101, 7951616, 4118364, 48917721 ####[address] [address] Monocytes/Leukocytes Auto (Bld) [Pure # fraction] 0.4 E9/L Normal 0.2-1.0 [facility] Comment on above: Order Comment: Order Added by Discern Expert. Performed By: #### 2 186964, 93684333, 0994505, 32921472, 1541521, 9932280, 04745913 ####[address] [place] [address] Neutrophils/100 WBC (Bld) 75.0 % Normal 36.0-75.0 [facility] Comment on above: Order Comment: Order Added by Discern Expert. Performed By: #### 2 380427, 84956341, 8795796, 98365255, 1094297, 9278184, 05241751 ####[address] [place] [address] Neutrophils/Leukocytes Auto (Bld) [Pure # fraction] 5.8 E9/L Normal 2.0-7.5 [facility] Comment on above: Order Comment: Order Added by Discern Expert. Performed By: #### 2 932212, 59002119, 7653711, 12701545, 7211138, 4027055, 96271493 ####[address] [place] [address] CBC w/ Auto Diffon 3 Erythrocyte distribution width (RBC) [Ratio] 14.5 % High 10.9-14.2 [facility] Comment on above: Performed By: #### 2 467045, 06063238, 3217955, 03967563, 3136729, 7605208, 99173661 ####[address] [place] [address] Hematocrit (Bld) [Volume fraction] 36.4 % Normal 34.0-46.0 [facility] Comment on above: Performed By: #### 2 036859, 01781459, 1053076, 97221088, 9760438, 1962112, 07303736 ####[address] [place] [address] Hemoglobin (Bld) [Mass/Vol] 12.1 g/dL Normal 12.0-16.0 [facility] Comment on above: Performed By: #### 2 519519, 40754831, 9205538, 63146720, 5539989, 8682036, 27908226 ####[address] [place] [address] MCH (RBC) [Entitic mass] 30.2 pg Normal 27.0-34.0 [facility] Comment on above: Performed By: #### 2 713336, 04937042, 0544612, 04114415, 0601241, 3880925, 93841038 ####[facility] [address] [place] [address] MCHC (RBC) [Mass/Vol] 33.3 g/dL Normal 31.4-36.0 [facility] Comment on above: Performed By: #### 2 522691, 23467551, 8851623, 94804781, 6525480, 9762025, 75045059 ####[address] [address] MCV (RBC) [Entitic vol] 90.8 fL Normal 80.0-100.0 [facility] Comment on above: Performed By: #### 2 832065, 47247565, 8830365, 40072596, 2664021, 0285364, 50660682 ####[address] [address] Platelet mean volume (Bld) [Entitic vol] 9.7 fL Normal 6.4-10.8 [facility] Comment on above: Performed By: #### 2 480470, 83239313, 6759110, 35560806, 2910132, 3575050, 22037394 ####[address] [address] Platelets (Bld) [#/Vol] 270.0 E9/L Normal 150.0-500.0 [facility] Comment on above: Performed By: #### 2 333769, 37193490, 9222121, 56757831, 9464226, 5610960, 40456063 ####[address] [place] [address] RBC (Bld) [#/Vol] 4.0 E12/L Low 4.3-5.9 [facility] Comment on above: Performed By: #### 2 366663, 14591861, 7435275, 26397965, 9527420, 1597603, 28625928 ####[address] [address] WBC corrected for nucl RBC Auto (Bld) [#/Vol] 7.7 E9/L Normal 4.0-11.0 [facility] Comment on above: Performed By: #### 2 004960, 45681353, 0468840, 46992571, 7919380, 6794432, 69377982 ####[facility] [address] [place] [address] CHEMISTRYOrdered By: SYSTEM SYSTEM on 08-23-2023 Albumin [...] 125 mL/min/1.73 m2 Normal >=59mL/min/ 1.73 m2 [facility] Chem S Comment on above: Interpretive Data: [...] 08-23-2023 Albumin [Mass/Vol] 2.8 g/dL Low 3.3-5.0 [facility] Comment on above: Performed By: #### 2 974395, 75459891, 1421995, 24965881, 8827661, 1276073, 36976960 ####[facility] [address] [place] [address] Albumin/Globulin (S) [Mass conc ratio] 0.7 Low 1.1-2.2 [facility] Comment on above: Performed By: #### 2 086828, 57422012, 9698776, 56292337, 9046957, 8517110, 07075363 ####[facility] [address] [place] [address] ALP [Catalytic activity/Vol] 49 Int._Unit/L Normal 21-98 [facility] Comment on above: Performed By: #### 2 319451, 16618401, 4456064, 60152835, 0814818, 6894175, 72404468 ####[facility] [address] [place] [address] ALT No additional P-5'-P [Catalytic activity/Vol] 15 Int._Unit/L Normal 6-46 [facility] Comment on above: Performed By: #### 2 352054, 03025030, 6580742, 55959171, 6746269, 5599531, 18929962 ####[facility] [address] [place] [address] Anion gap [Moles/Vol] 12 mmol/L Normal 6-16 [facility] Comment on above: Performed By: #### 2 710148, 03362175, 1945226, 48894071, 5427666, 5024622, 19606674 ####[facility] [address] [place] [address] AST [Catalytic activity/Vol] 17 Int._Unit/L Normal 5-43 [facility] Comment on above: Performed By: #### 2 650753, 93538560, 2425959, 29644307, 2860297, 4440933, 10549534 ####[facility] [address] [place] [address] Bilirubin [Mass/Vol] 0.5 mg/dL Normal 0.0-1.1 [facility] Comment on above: Performed By: #### 2 932488, 74645804, 2804907, 70050645, 0221265, 1831831, 19432545 ####[facility] [address] [place] [address] Calcium [Mass/Vol] 8.8 mg/dL Low 8.9-11.1 [facility] Comment on above: Performed By: #### 2 284112, 34420890, 8411459, 46350241, 2004439, 1645880, 67800213 ####[facility] [address] [place] [address] Chloride [Moles/Vol] 108 mmol/L Normal 101-111 [facility] Comment on above: Performed By: #### 2 938603, 96002155, 2239921, 89344400, 6794372, 7141752, 68498158 ####[facility] [address] [place] [address] CO2 [Moles/Vol] 22 mmol/L Normal 21-31 [facility] Comment on above: Performed By: #### 2 432142, 41624514, 6973600, 87306270, 4320069, 8913879, 05733868 ####[facility] [address] [place] [address] Creatinine [Mass/Vol] 0.6 mg/dL Normal 0.5-1.3 [facility] Comment on above: Performed By: #### 2 648825, 69718371, 9169917, 43601714, 6745823, 6965668, 65871370 ####[facility] [address] [place] [address] Globulin (S) [Mass/Vol] 3.8 g/dL Normal 1.4-4.0 [facility] Comment on above: Performed By: #### 2 887004, 39847700, 8390456, 17789080, 1918887, 8507310, 75955495 ####[facility] [address] [place] [address] Glucose [Mass/Vol] 88 mg/dL Normal 55-199 [facility] Comment on above: Result Comment: If t his glucose result represents a fasting glucose, interpretation should refer to the following reference range: 55-99 mg/dL Performed By: #### 2 745361, 73859866, 5867881, 30324458, 2724942, 6818557, 48743384 ####[facility] [address] [place] [address] Potassium [Moles/Vol] 3.5 mmol/L Normal 3.5-5.3 [facility] Comment on above: Performed By: #### 2 375304, 81833602, 4767895, 09868267, 8023072, 4155049, 90865727 ####[facility] [address] [place] [address] Protein [Mass/Vol] 6.6 g/dL Normal 6.0-7.8 [facility] Comment on above: Performed By: #### 2 784307, 87374023, 9248827, 84332767, 7037748, 6094512, 65794920 ####[facility] [address] [place] [address] Sodium [Moles/Vol] 138 mmol/L Normal 135-145 [facility] Comment on above: Performed By: #### 2 420896, 52694448, 2739356, 26264196, 2917516, 2591194, 93072712 ####[facility] [address] [place] [address] Urea nitrogen [Mass/Vol] 7 mg/dL Normal 5-21 [facility] Comment on above: Performed By: #### 2 502480, 13172117, 6487984, 51937203, 4411659, 2152204, 11046952 ####[facility] [address] [place] [address] Urea nitrogen/Creatinine [Mass ratio] 12 No Units Normal 10-20 [facility] Comment on above: Performed By: #### 2 705752, 38312445, 4433609, 45311113, 3043275, 3679043, 16904873 ####[facility] [address] [place] [address] HEMATOLOGYOrdered By: SYSTEM SYSTEM on 08-23-2023 Basophils/100 [...] 33.3 g/dL Normal 31.4 - 36.0 gm/dL [facility] HemeAutoSS MCV (RBC) [Entitic vol] 90.8 fL Normal 80.0 - 100.0 fL [facility] HemeAutoSS Platelet mean volume (Bld) [Entitic vol] 9.7 fL Normal 6.4 - 10.8 fL [facility] HemeAutoSS Platelets (Bld) [#/Vol] 270.0 E9/L Normal 150.0 - 500.0 E9/L [facility] HemeAutoSS RBC (Bld) [#/Vol] 4.0 E12/L Low 4.3 - 5.9 E12/L [facility] HemeAutoSS WBC corrected for nucl RBC Auto (Bld) [#/Vol] 7.7 E9/L Normal 4.0 - 11.0 E9/L [facility] HemeAutoSS Lipid Panelon 08-23-2023 Cholesterol [Mass/Vol] 238 mg/dL High 120-200 [facility] Comment on above: Performed By: #### 2 053940, 57302582, 8401041, 38865459, 5738092, 1901411, 35889424 ####[facility] [address] [place] [address] Cholesterol in HDL [Mass/Vol] 64 mg/dL Invalid Interpretation Code [facility] Comment on above: Result Comment: HDL > or equal to 60 mg/dL: Low cardiovascular riskHDL < 40 mg/dL : High cardiovascular risk Performed By: #### 2 142601, 21314595, 1681021, 30370074, 8901822, 3099733, 67281369 ####[facility] [address] [place] [address] Cholesterol in LDL [Mass/Vol] 146 mg/dL High <=129 [facility] Comment on above: Performed By: #### 2 248017, 66136456, 3552253, 99943493, 6739386, 0129464, 35433346 ####[facility] [address] [place] [address] Cholesterol in VLDL [Mass/Vol] 33 mg/dL Normal 7-40 [facility] Comment on above: Performed By: #### 2 895635, 70832307, 1239338, 66516622, 8405527, 7266420, 32941454 ####[facility] [address] [place] [address] Triglyceride [Mass/Vol] 164 mg/dL High <=149 [facility] Comment on above: Performed By: #### 2 098733, 18302362, 1122110, 21143360, 8659557, 1996673, 10989375 ####[facility] [address] [place] [address] Physician Orderon 08-23-2023 Physician Order [id number]#1.00TIFF Normal [facility] T4 & TSHon 08-23-2023 T4 [Mass/Vol] 11.8 microgram/dL High 4.6-9.1 [facility] Comment on above: Performed By: #### 2 821248, 85851901, 5207450, 15130392, 8445500, 2015188, 06345126 ####[facility] [address] [place] [address] TSH Qn 3.61 m[IU]/L Normal 0.34-5.60 [facility] Comment on above: Performed By: #### 2 439656, 29308426, 7083799, 22548499, 7560121, 1762716, 91044088 ####[facility] [address] [place] [address] eGFRon 08-23-2023 GFR/1.73 sq M.predicted among non-blacks MDRD (S/P/Bld) [Vol rate/Area] 125 mL/min/1.73 m2 Normal >=59 [facility] Comment on above: Order Comment: Order added by Discern Expert. Result Comment: Cartridge Gauger lucy kidney disease could be indicated at eGFR's of less than 60 mL/min/1.73m2. Kidney failure is indicated at less than 15 mL/min/1.73m2. Performed By: #### 2 718795, 02423309, 1818550, 55292840, 8064012, 4684197, 18415429 ####[facility] [address] [place] [address] Nursing Assessmenton 023 Nursing Assessment [id number]#1.00TIFF Normal [facility] Consent for Treatmenton Consent for Treatment [id number]#1.00TIFF Normal [facility] Discharge Instructionson Discharge Instructions [id number]#1.00TIFF Normal [facility] Inpatient Clinical Summaryon 08-18-2023 Inpatient Clinical Summary [facility] [facility] Inpatient Patient Summaryon 08-18-2023 Inpatient Patient Summary Normal [facility] Insurance Correspondenceon 10-18-2022 Insurance Correspondence [id number]#1.00TIFF Normal [facility] Vaccinationson 08-18-2023 Vaccinations [id number]#1.00TIFF Normal [facility] C Urineon 07-27-2023 Bacteria identified Cx Nom (U) Normal [facility] Comment on above: Performed By: #### 2 198091, [id number] ####[facility] [address] [place] [address] ABO/Rhon 07-25-2023 ABO/Rh Positive Invalid Interpretation Code [facility] Comment on above: Performed By: #### 2 267586 ####[facility] [address] [place] [address] Auto Diffon 07-25-2023 Basophils/100 WBC (Bld) 1.1 % Normal 0.0-2.0 [facility] Comment on above: Order Comment: Order Added by Discern Expert. Performed By: #### 1 1951514, 4028682, 7763297, 7047027, 8547728, 9820767 ####[address] [place] [address] Basophils/Leukocytes Auto (Bld) [Pure # fraction] 0.1 E9/L Normal 0.0-0.2 [facility] Comment on above: Order Comment: Order Added by Discern Expert. Performed By: #### 1 7354799, 4257696, 2503212, 4452248, 4627408, 6006904 ####[address] [place] [address] Eosinophils/100 WBC (Bld) 1.2 % Normal 0.0-8.0 [facility] Comment on above: Order Comment: Order Added by Discern Expert. Performed By: #### 1 6057718, 7398216, 7619733, 5208392, 8642587, 2745475 ####[address] [address] Eosinophils/Leukocytes Auto (Bld) [Pure # fraction] 0.1 E9/L Normal 0.0-0.5 [facility] Comment on above: Order Comment: Order Added by Gisselle Expert. Performed By: #### 1 3042518, 4687561, 5596150, 6914209, 9033584, 1062773 ####[address] [address] Lymphocytes/100 WBC (Bld) 23.7 % Normal 14.0-50.0 [facility] Comment on above: Order Comment: Order Added by Discern Expert. Performed By: #### 1 3061955, 3421710, 7937309, 9679192, 7208000, 8282833 ####[address] [place] [address] Lymphocytes/Leukocytes Auto (Bld) [Pure # fraction] 1.4 E9/L Normal 1.0-4.0 [facility] Comment on above: Order Comment: Order Added by Gisselle Expert. Performed By: #### 1 8957865, 0032137, 9184526, 8596973, 9903927, 4907352 ####[address] [place] [address] Monocytes/100 WBC (Bld) 6.7 % Normal 4.0-14.0 [facility] Comment on above: Order Comment: Order Added by Discern Expert. Performed By: #### 1 7145957, 6132388, 2522031, 9161771, 8717984, 2085175 ####[address] [place] [address] Monocytes/Leukocytes Auto (Bld) [Pure # fraction] 0.4 E9/L Normal 0.2-1.0 [facility] Comment on above: Order Comment: Order Added by Discern Expert. Performed By: #### 1 7321063, 5764581, 0484266, 4191144, 6947819, 8050330 ####[address] [place] [address] Neutrophils/100 WBC (Bld) 67.3 % Normal 36.0-75.0 [facility] Comment on above: Order Comment: Order Added by Discern Expert. Performed By: #### 1 3345056, 3935747, 9797011, 5326849, 3584885, 9699760 ####[address] [address] Neutrophils/Leukocytes Auto (Bld) [Pure # fraction] 4.0 E9/L Normal 2.0-7.5 [facility] Comment on above: Order Comment: Order Added by Discern Expert. Performed By: #### 1 0798376, 5280654, 4326916, 9892012, 2714637, 9617740 ####[facility] [address] [place] [address] BLOOD BANKOrdered By: An Lassiter on 07-25-2023 ABO/Rh Interp Positive Invalid Interpretation Code [facility] BB Subsection BMPon 07-25-2023 Creatinine [Mass/Vol] 0.6 mg/dL Normal 0.5-1.3 [facility] Comment on above: Performed By: #### 1 2030156, 5988842, 8120717, 5235386, 0081101, 4244135 ####[facility] [address] [place] [address] Urea nitrogen [Mass/Vol] 6 mg/dL Normal 5-21 [facility] Comment on above: Performed By: #### 1 9513380, 3761640, 8117323, 6421177, 1108927, 8568868 ####[facility] [address] [place] [address] Urea nitrogen/Creatinine [Mass ratio] 10 No Units Normal 10-20 [facility] Comment on above: Performed By: #### 1 0835943, 4805272, 6205147, 2442138, 1439029, 3786070 ####[facility] [address] [place] [address] Anion gap [Moles/Vol] 2 mmol/L Low 6-16 [facility] Comment on above: Performed By: #### 1 5757038, 9040130, 0737509, 4625681, 5811779, 4955567 ####[facility] [address] [place] [address] Calcium [Mass/Vol] 8.6 mg/dL Low 8.9-11.1 [facility] Comment on above: Performed By: #### 1 3670790, 6331351, 6198820, 2750270, 5551168, 9894750 ####[facility] [address] [place] [address] Chloride [Moles/Vol] 107 mmol/L Normal 101-111 [facility] Comment on above: Performed By: #### 1 6828599, 3515011, 7488127, 9941705, 1801456, 5154918 ####[facility] [address] [place] [address] CO2 [Moles/Vol] 27 mmol/L Normal 21-31 [facility] Comment on above: Performed By: #### 1 1037726, 4559442, 9036370, 7932559, 8004414, 0218332 ####[facility] [address] [place] [address] Glucose [Mass/Vol] 73 mg/dL Normal 55-199 [facility] Comment on above: Result Comment: If t his glucose result represents a fasting glucose, interpretation should refer to the following reference range: 55-99 mg/dL Performed By: #### 1 5769185, 4352243, 3554931, 0064774, 3231924, 7354761 ####[facility] [address] [place] [address] Potassium [Moles/Vol] 3.9 mmol/L Normal 3.5-5.3 [facility] Comment on above: Performed By: #### 1 6861981, 4170900, 8866772, 1317450, 6015982, 6545942 ####[facility] [address] [place] [address] Sodium [Moles/Vol] 132 mmol/L Low 135-145 [facility] Comment on above: Performed By: #### 1 1830534, 5671816, 8341587, 4737706, 9750443, 9388071 ####[facility] [address] [place] [address] BhCG Quanton 07-25-2023 [place] [address] m[IU]/mL High 1-3 [facility] Comment on above: Result Comment: GEST ATIONAL AGE HCG RANGE (mIU/mL) NON- <1-3 0.2-1 WEEKS 5-50 1-2 WEEKS 50-500 2-3 WEEKS 100-5,000 3-4 WEEKS 500-10,000 4-5 WEEKS 1,000-50,000 5-6 WEEKS 10,000-100,000 6-8 WEEKS 15,000-200,000 8-12 WEEKS 10,000-100,000 Performed By: #### 2 657320 ####[facility] [address] [place] [address] CBC w/ Auto Diffon Erythrocyte distribution width (RBC) [Ratio] 14.0 % Normal 10.9-14.2 [facility] Comment on above: Performed By: #### 1 8157681, 9473596, 1883377, 3265789, 9317525, 3478924 ####[facility] [address] [place] [address] Hematocrit (Bld) [Volume fraction] 37.1 % Normal 34.0-46.0 [facility] Comment on above: Performed By: #### 1 4872414, 6392573, 5826716, 7310841, 5943865, 1101806 ####[address] [place] [address] Hemoglobin (Bld) [Mass/Vol] 12.5 g/dL Normal 12.0-16.0 [facility] Comment on above: Performed By: #### 1 2630174, 6741647, 2680513, 5655107, 7374657, 9290005 ####[place] [address] MCH (RBC) [Entitic mass] 29.9 pg Normal 27.0-34.0 [facility] Comment on above: Performed By: #### 1 6714697, 5820459, 8285732, 1860761, 2412335, 9966303 ####[place] [address] MCHC (RBC) [Mass/Vol] 33.8 g/dL Normal 31.4-36.0 [facility] Comment on above: Performed By: #### 1 6927872, 0309831, 0159757, 1471472, 1322296, 6060539 ####[place] [address] MCV (RBC) [Entitic vol] 88.4 fL Normal 80.0-100.0 [facility] Comment on above: Performed By: #### 1 4594510, 2274110, 6269446, 5333921, 5955790, 2306013 ####[address] [address] Platelet mean volume (Bld) [Entitic vol] 7.9 fL Normal 6.4-10.8 [facility] Comment on above: Performed By: #### 1 4995234, 6480565, 8637009, 9418948, 7709824, 0107634 ####[facility] [address] [place] [address] Platelets (Bld) [#/Vol] 261.0 E9/L Normal 150.0-500.0 [facility] Comment on above: Performed By: #### 1 0401063, 7495433, 7241317, 5549403, 5538024, 0117253 ####[facility] [address] [place] [address] RBC (Bld) [#/Vol] 4.2 E12/L Low 4.3-5.9 [facility] Comment on above: Performed By: #### 1 5076514, 1400511, 5719744, 4959520, 4474063, 6206663 ####[facility] [address] [place] [address] WBC corrected for nucl RBC Auto (Bld) [#/Vol] 5.9 E9/L Normal 4.0-11.0 [facility] Comment on above: Performed By: #### 1 6273071, 0640132, 2447678, 0421592, 3258770, 0981189 ####[facility] [address] [place] [address] CHEMISTRYOrdered By: SYSTEM SYSTEM on 07-25-2023 Albumin [...] 125 mL/min/1.73 m2 Normal >=59mL/min/ 1.73 m2 [facility] Chem S Comment on above: Interpretive Data: [...] reference range: 55-99 mg/[place] [address] m[IU]/mL High 1 - 3 mIU/mL [facility] Comment on above: Interpretive Data: G ESTATIONAL AGE HCG RANGE (mIU/mL) NON- <1-3 0.2-1 WEEKS 5-50 1-2 WEEKS 50-500 2-3 WEEKS 100-5,000 3-4 WEEKS 500-10,000 4-5 WEEKS 1,000-50,000 5-6 WEEKS 10,000-100,000 6-8 WEEKS 15,000-200,000 8-12 WEEKS 10,000-100,000 Lipase [Catalytic activity/Vol] 28 U/L Normal 13 - 58 unit/L [facility] Potassium [Moles/Vol] 3.9 mmol/L Normal 3.5 - 5.3 mmol/L [facility] Protein [Mass/Vol] 6.7 g/dL Normal 6.0 - 7.8 gm/dL [facility] Sodium [Moles/Vol] 132 mmol/L Low 135 - 145 mmol/L [facility] Urea nitrogen [Mass/Vol] 6 mg/dL Normal 5 - 21 mg/dL [facility] Urea nitrogen/Creatinine [Mass ratio] 10 mg/mg Normal 10 - 20 [facility] Consent for Treatmenton 07-15 Consent for Treatment [id number]#1.00TIFF Normal [facility] Discharge Instructionson Discharge Instructions [id number]#1.00TIFF Normal [facility] ED Clinical Summaryon 2022 ED Clinical Summary Normal [facility] ED Note-Physicianon 07-25-20 ED Note-Physician Normal [facility] Comment on above: Result Comment: Elec tronically Signed By: Jorge Velarde PA-C\.br\Date and Time Signed: 07/25/23 10:02 EDT\.br\Electronically Co-Signed By: Kristian Guillermo DO.br\Date and Time Co-Signed: 07/25/23 20:25 EDT ED Patient Education Noteon 07-25-2023 ED Patient Education Note Normal [facility] ED Patient Summaryon 023 ED Patient Summary Normal [facility] HEMATOLOGYOrdered By: SYSTEM SYSTEM on [...] 7.5 E9/L [facility] HemeAutoSS HEMATOLOGYOrdered By: Luis Miugel Posadas on 07-25-2023 Erythrocyte distribution width (RBC) [...] 4.2 E12/L Low 4.3 - 5.9 E12/L [facility] HemeAutoSS WBC corrected for nucl RBC Auto (Bld) [#/Vol] 5.9 E9/L Normal 4.0 - 11.0 E9/L [facility] HemeAutoSS Hep Func Panelon 07-25-2023 Bilirubin.indirect [Mass or moles/Vol] UTC Abnormal 0.1-0.9 [facility] Comment on above: Result Comment: Resu lt verified by Discern Rule. Performed result UT (Unable to Calculate) was sent as an Alpha code due the inability to calculate a valid numeric value. Performed By: #### 1 7767101, 9562987, 0338624, 0596386, 2851084, 2702680 ####[address] [place] [address] Albumin [Mass/Vol] 3.1 g/dL Low 3.3-5.0 [facility] Comment on above: Performed By: #### 1 7698174, 6583309, 3981169, 4037235, 2821371, 0131407 ####[facility] [address] [place] [address] Albumin/Globulin (S) [Mass conc ratio] 0.9 Low 1.1-2.2 [facility] Comment on above: Performed By: #### 1 1301963, 0707767, 7022381, 3792058, 3407274, 7810401 ####[address] [place] [address] ALP [Catalytic activity/Vol] 35 Int._Unit/L Normal 21-98 [facility] Comment on above: Performed By: #### 1 6998710, 3110421, 2080645, 5812940, 1222451, 5338535 ####[facility] [address] [place] [address] ALT No additional P-5'-P [Catalytic activity/Vol] 10 Int._Unit/L Normal 6-46 [facility] Comment on above: Performed By: #### 1 0287045, 1714652, 7481509, 8956216, 3352095, 9360978 ####[address] [place] [address] AST [Catalytic activity/Vol] 18 Int._Unit/L Normal 5-43 [facility] Comment on above: Performed By: #### 1 0551482, 4897939, 7338853, 4248549, 8330442, 0951872 ####[facility] [address] [place] [address] Bilirubin [Mass/Vol] 0.4 mg/dL Normal 0.0-1.1 [facility] Comment on above: Performed By: #### 1 5730762, 9832123, 1025928, 9300380, 9645636, 3035654 ####[address] [place] [address] Globulin (S) [Mass/Vol] 3.6 g/dL Normal 1.4-4.0 [facility] Comment on above: Performed By: #### 1 7420213, 7586999, 6894456, 7754961, 2241963, 1441465 ####[facility] [address] [place] [address] Protein [Mass/Vol] 6.7 g/dL Normal 6.0-7.8 [facility] Comment on above: Performed By: #### 1 9943205, 8976268, 2826296, 8506222, 1982626, 8283592 ####[facility] [address] [place] [address] Bilirubin.direct [Mass/Vol] mg/dL Normal 0.1-0.4 [facility] Comment on above: Performed By: #### 1 3623108, 0736497, 7369353, 2263042, 8847810, 0738068 ####[address] [place] [address] Lipase Levelon 07-25-2023 Lipase [Catalytic activity/Vol] 28 U/L Normal 13-58 [facility] Comment on above: Performed By: #### 1 0213087, 1903851, 8899868, 6949318, 3692037, 0236070 ####[facility] [address] [place] [address] UA With Cult Reflexon 2022 Bacteria LM Ql (Urine sed) TRACE Normal Trace [facility] Comment on above: Performed By: #### 2 556374, 22614875 ####[facility] [address] [place] [address] Bilirubin Ql (U) Negative Normal Negative [facility] Comment on above: Performed By: #### 2 520763, 18317582 ####[facility] [address] [place] [address] Clarity (U) SL CLOUDY Abnormal Clear [facility] Comment on above: Performed By: #### 2 369477, 84095138 ####[facility] [address] [place] [address] Color (U) YELLOW Normal Yellow [facility] Comment on above: Performed By: #### 2 467634, 14637434 ####[address] [address] Epithelial cells.squamous LM.HPF (Urine sed) [#/Area] 0-2 Normal 0-2 [facility] Comment on above: Performed By: #### 2 705525, 05891729 ####[facility] [address] [place] [address] Glucose Test strip (U) [Mass/Vol] Negative Normal Negative [facility] Comment on above: Performed By: #### 2 889519, 96221125 ####[facility] [address] [place] [address] Hemoglobin Ql (U) Negative Normal Negative [facility] Comment on above: Performed By: #### 2 780564, 87039338 ####[facility] [address] [place] [address] Ketones (U) [Mass/Vol] Negative Normal Negative [facility] Comment on above: Performed By: #### 2 745786, 40594137 ####[facility] [address] [place] [address] [place].plasma/[place] .RBC (Bld) [Mass ratio] 0-3 Normal 0-3 [facility] Comment on above: Performed By: #### 2 222079, 07335690 ####[place] [address] Nitrite Ql (U) Negative Normal Negative [facility] Comment on above: Performed By: #### 2 465975, 97160350 ####[place] [address] pH (U) 7.5 [pH] Invalid Interpretation Code 5.0-9.0 [facility] Comment on above: Performed By: #### 2 409259, 83507536 ####[place] [address] Protein (U) [Mass/Vol] Negative Normal Negative [facility] Comment on above: Performed By: #### 2 290522, 53840020 ####[place] [address] Specific gravity (U) [Rel density] 1.010 Invalid Interpretation Code 1.005-1.030 [facility] Comment on above: Performed By: #### 2 192128, 49187767 ####[place] [address] Type of Urine collection method Clean Catch Normal [facility] Comment on above: Performed By: #### 2 254628, 94968191 ####[place] [address] Urobilinogen Qn (U) 1.0 {Rola'U}/dL Normal 0.0-1.0 [facility] Comment on above: Performed By: #### 2 898807, 63503386 ####[place] [address] WBC Auto Ql (U) 2+ Abnormal Negative [facility] Comment on above: Performed By: #### 2 046983, 31338362 ####[address] [address] WBC LM.HPF (Urine sed) [#/Area] 0-5 Normal 0-5 [facility] Comment on above: Performed By: #### 2 193176, 78949483 ####[facility] [address] [place] [address] URINALYSISOrdered By: Emy Aiken on 07-25-2023 Bacteria [...] AM) Normal Negative [facility] UA Auto SS [place].plasma/[place] .RBC (Bld) [Mass ratio] 0-3 /HPF Normal [...] [facility] UA Auto SS Urobilinogen Qn (U) 1.8134449 {Rola'U}/dL Normal 0.0 - 1.0 EU/dL [facility] UA Auto SS WBC Auto Ql (U) 2+ *ABN* (07/25/23 8:33 AM) Invalid Interpretation Code Negative [facility] UA Auto SS WBC LM.HPF (Urine sed) [#/Area] 0-5 /HPF Normal 0-5/HPF [facility] UA Auto SS US Limitedon 07-25 US Limited Normal [facility] eGFRon 07-25-2023 GFR/1.73 sq M.predicted among non-blacks MDRD (S/P/Bld) [Vol rate/Area] 125 mL/min/1.73 m2 Normal >=59 [facility] Comment on above: Order Comment: Order added by Discern Expert. Result Comment: Cartridge Gauger lucy kidney disease could be indicated at eGFR's of less than 60 mL/min/1.73m2. Kidney failure is indicated at less than 15 mL/min/1.73m2. Performed By: #### 1 4518863, 6553843, 4278380, 9979320, 4545718, 2216011 ####[facility] [address] [place] [address] C Urineon 06-30-2023 Bacteria identified Cx Nom (U) Normal [facility] Comment on above: Performed By: #### 2 203375 ####[facility] [address] [place] [address] Family Medicine Office/Clini c Noteon 06-28-2023 Family Medicine Office/Clinic Note Normal [facility] Comment on above: Result Comment: Elec tronically Signed By: Татьяна NICHOLS, Roverto Barron\.br\Date and Time Signed: 06/28/23 11:41 EDT Patient Educationon 06-28-20 Patient Education Normal [facility] ABO/Rhon 06-14-2023 ABO/Rh Positive Invalid Interpretation Code [facility] Comment on above: Performed By: #### 2 702747 ####[facility] [address] [place] [address] Auto Diffon 06-14-2023 Basophils/100 WBC (Bld) 0.8 % Normal 0.0-2.0 [facility] Comment on above: Order Comment: Order Added by Discern Expert. Performed By: #### 2 419108, 0965731, 8362153, 8187539, 6188526, 90308728 ####[place] [place] [address] Basophils/Leukocytes Auto (Bld) [Pure # fraction] 0.0 E9/L Normal 0.0-0.2 [facility] Comment on above: Order Comment: Order Added by Discern Expert. Performed By: #### 2 491360, 9338587, 5780692, 4537220, 5506860, 77570558 ####[address] [address] Eosinophils/100 WBC (Bld) 1.9 % Normal 0.0-8.0 [facility] Comment on above: Order Comment: Order Added by Discern Expert. Performed By: #### 2 113061, 8614181, 2720266, 7849838, 1769918, 99195679 ####[address] [address] Eosinophils/Leukocytes Auto (Bld) [Pure # fraction] 0.1 E9/L Normal 0.0-0.5 [facility] Comment on above: Order Comment: Order Added by Discern Expert. Performed By: #### 2 443961, 6193250, 9856388, 4292426, 1927593, 38321840 ####[address] [address] Lymphocytes/100 WBC (Bld) 24.5 % Normal 14.0-50.0 [facility] Comment on above: Order Comment: Order Added by Discern Expert. Performed By: #### 2 743050, 4594463, 2448546, 8130995, 2386002, 29928347 ####[address] [address] Lymphocytes/Leukocytes Auto (Bld) [Pure # fraction] 1.3 E9/L Normal 1.0-4.0 [facility] Comment on above: Order Comment: Order Added by Discern Expert. Performed By: #### 2 859098, 1421921, 5388146, 3014076, 3380356, 84122052 ####[facility] [address] [place] [address] Monocytes/100 WBC (Bld) 7.8 % Normal 4.0-14.0 [facility] Comment on above: Order Comment: Order Added by Discern Expert. Performed By: #### 2 050728, 0938363, 2401641, 1153340, 5658360, 81336178 ####[facility] [address] [place] [address] Monocytes/Leukocytes Auto (Bld) [Pure # fraction] 0.4 E9/L Normal 0.2-1.0 [facility] Comment on above: Order Comment: Order Added by Gisselle Expert. Performed By: #### 2 905881, 4040974, 2410942, 4163867, 2916654, 06244059 ####[place] [address] [place] [address] Neutrophils/100 WBC (Bld) 65.0 % Normal 36.0-75.0 [facility] Comment on above: Order Comment: Order Added by Gisselle Expert. Performed By: #### 2 526072, 7050504, 4207121, 0567912, 3193969, 04614346 ####[place] [address] [place] [address] Neutrophils/Leukocytes Auto (Bld) [Pure # fraction] 3.5 E9/L Normal 2.0-7.5 [facility] Comment on above: Order Comment: Order Added by Gisselle Expert. Performed By: #### 2 913193, 4635672, 1767079, 9901659, 3323196, 35575702 ####[facility] [address] [place] [address] BLOOD BANKOrdered By: Keila Kumar on 06-14-2023 ABO/Rh Interp Positive Invalid Interpretation Code [facility] BB Subsection BMPon 06-14-2023 Creatinine [Mass/Vol] 0.5 mg/dL Normal 0.5-1.3 [facility] Comment on above: Performed By: #### 2 366686, 2951296, 1127919, 8192894, 8420468, 54795881 ####[facility] [address] [place] [address] Urea nitrogen [Mass/Vol] 6 mg/dL Normal 5-21 [facility] Comment on above: Performed By: #### 2 121886, 7918244, 3173460, 8445664, 9113806, 74462407 ####[facility] [address] [place] [address] Urea nitrogen/Creatinine [Mass ratio] 12 No Units Normal 10-20 [facility] Comment on above: Performed By: #### 2 760997, 3687801, 3358569, 4654173, 4213293, 23260274 ####[facility] [address] [place] [address] Anion gap [Moles/Vol] 10 mmol/L Normal 6-16 [facility] Comment on above: Performed By: #### 2 477203, 2595491, 0270557, 3807745, 2008632, 47034245 ####[facility] [address] [place] [address] Calcium [Mass/Vol] 8.7 mg/dL Low 8.9-11.1 [facility] Comment on above: Performed By: #### 2 519641, 3621743, 9580151, 7234052, 4474411, 79461425 ####[facility] [address] [place] [address] Chloride [Moles/Vol] 107 mmol/L Normal 101-111 [facility] Comment on above: Performed By: #### 2 126082, 0043388, 7691142, 3703541, 7280372, 57859681 ####[facility] [address] [place] [address] CO2 [Moles/Vol] 21 mmol/L Normal 21-31 [facility] Comment on above: Performed By: #### 2 551833, 0995638, 9638158, 3915806, 4022569, 07241782 ####[facility] [address] [place] [address] Glucose [Mass/Vol] 77 mg/dL Normal 55-199 [facility] [facility] Comment on above: Result Comment: If t his glucose result represents a fasting glucose, interpretation should refer to the following reference range: 55-99 mg/dL Performed By: #### 2 898096, 5932421, 1507531, 5511465, 2641724, 99028669 ####[facility] [address] [place] [address] Potassium [Moles/Vol] 3.8 mmol/L Normal 3.5-5.3 [facility] Comment on above: Performed By: #### 2 974026, 2194540, 9653862, 9235874, 4126455, 56921764 ####[facility] [address] [place] [address] Sodium [Moles/Vol] 134 mmol/L Low 135-145 [facility] Comment on above: Performed By: #### 2 837827, 2467623, 0038940, 6994888, 7149432, 87969240 ####[facility] [address] [place] [address] BhCG Quanton 06-14-2023 HCG.beta subunit Qn 774885 m[IU]/mL High 1-3 [facility] Comment on above: Result Comment: GEST ATIONAL AGE HCG RANGE (mIU/mL) NON- <1-3 0.2-1 WEEKS 5-50 1-2 WEEKS 50-500 2-3 WEEKS 100-5,000 3-4 WEEKS 500-10,000 4-5 WEEKS 1,000-50,000 5-6 WEEKS 10,000-100,000 6-8 WEEKS 15,000-200,000 8-12 WEEKS 10,000-100,000 Performed By: #### 2 361978 ####[facility] [address] [place] [address] CBC w/ Auto Diffon 3 Erythrocyte distribution width (RBC) [Ratio] 12.6 % Normal 10.9-14.2 [facility] Comment on above: Performed By: #### 2 530206, 2315821, 6189529, 8673874, 8030829, 45440291 ####[address] [place] [address] Hematocrit (Bld) [Volume fraction] 39.9 % Normal 34.0-46.0 [facility] Comment on above: Performed By: #### 2 852989, 8869916, 3685886, 6194452, 8775505, 59514420 ####[address] [place] [address] Hemoglobin (Bld) [Mass/Vol] 13.4 g/dL Normal 12.0-16.0 [facility] Comment on above: Performed By: #### 2 662831, 0157453, 3712714, 1202764, 4688644, 66891674 ####[address] [address] MCH (RBC) [Entitic mass] 29.8 pg Normal 27.0-34.0 [facility] Comment on above: Performed By: #### 2 807110, 0698114, 6049979, 1453381, 7222210, 26905976 ####[address] [address] MCHC (RBC) [Mass/Vol] 33.6 g/dL Normal 31.4-36.0 [facility] Comment on above: Performed By: #### 2 269751, 3615596, 3739826, 8381970, 6810622, 97557800 ####[address] [address] MCV (RBC) [Entitic vol] 88.8 fL Normal 80.0-100.0 [facility] Comment on above: Performed By: #### 2 017271, 6988823, 6660346, 5678969, 2174859, 45619884 ####[facility] [address] [place] [address] Platelet mean volume (Bld) [Entitic vol] 8.4 fL Normal 6.4-10.8 [facility] Comment on above: Performed By: #### 2 663394, 2932185, 1545050, 5902511, 2193341, 47322689 ####[facility] [address] [place] [address] Platelets (Bld) [#/Vol] 225.0 E9/L Normal 150.0-500.0 [facility] Comment on above: Performed By: #### 2 902415, 5178421, 4797695, 2115676, 0693867, 11395753 ####[address] [place] [address] RBC (Bld) [#/Vol] 4.5 E12/L Normal 4.3-5.9 [facility] Comment on above: Performed By: #### 2 074104, 0808879, 6165906, 3024794, 8569025, 72528683 ####[address] [place] [address] WBC corrected for nucl RBC Auto (Bld) [#/Vol] 5.4 E9/L Normal 4.0-11.0 [facility] Comment on above: Performed By: #### 2 075665, 9297152, 7728610, 2561103, 8954386, 31967553 ####[address] [place] [address] CHEMISTRYOrdered By: SYSTEM SYSTEM on 06-14-2023 Albumin [...] 199 mg/dL FT Remisol HCG.beta subunit Qn 960976 m[IU]/mL High 1 - 3 mIU/mL [facility] Remisol Lipase [Catalytic activity/Vol] 28 U/L Normal 13 - 58 unit/L [facility] Remisol Potassium [Moles/Vol] 3.8 mmol/L Normal 3.5 - 5.3 mmol/L [facility] Remisol Protein [Mass/Vol] 6.8 g/dL Normal 6.0 - 7.8 gm/dL [facility] Remisol Sodium [Moles/Vol] 134 mmol/L Low 135 - 145 mmol/L [facility] Remisol Urea nitrogen [Mass/Vol] 6 mg/dL Normal 5 - 21 mg/dL [facility] Remisol Urea nitrogen/Creatinine [Mass ratio] 12 mg/mg Normal 10 - 20 [facility] Remisol Consent for Treatmenton 05-17 Consent for Treatment [id number]#[id number]:12 7 Normal [facility] ED Clinical Summaryon 2022 ED Clinical Summary Normal [facility] ED Note-Physicianon 06-14-20 ED Note-Physician Normal [facility] Comment on above: Result Comment: Elec tronically Signed By: Jos Ugalde PA-C\.br\Date and Time Signed: 06/14/23 11:58 EDT\.br\Electronically Co-Signed By: Kristian Guillermo DO\.br\Date and Time Co-Signed: 06/14/23 17:02 EDT ED Patient Education Noteon 06-14-2023 ED Patient Education Note Normal [facility] ED Patient Summaryon 023 ED Patient Summary Normal [facility] HEMATOLOGYOrdered By: SYSTEM SYSTEM on [...] 4.5 E12/L Normal 4.3 - 5.9 E12/L [facility] HemeAutoSS WBC corrected for nucl RBC Auto (Bld) [#/Vol] 5.4 E9/L Normal 4.0 - 11.0 E9/L [facility] HemeAutoSS Hep Func Panelon 06-14-2023 Bilirubin.indirect [Mass or moles/Vol] UTC Abnormal 0.1-0.9 [facility] Comment on above: Result Comment: Resu lt verified by Discern Rule. Performed result UTC (Unable to Calculate) was sent as an Alpha code due the inability to calculate a valid numeric value. Performed By: #### 2 095330, 0540976, 6695810, 6685249, 8755711, 54493033 ####[facility] [address] [place] [address] Albumin [Mass/Vol] 3.5 g/dL Normal 3.3-5.0 [facility] Comment on above: Performed By: #### 2 826817, 3984979, 5858527, 4666554, 7699395, 56585294 ####[facility] [address] [place] [address] Albumin/Globulin (S) [Mass conc ratio] 1.1 Normal 1.1-2.2 [facility] Comment on above: Performed By: #### 2 233039, 1725523, 6007333, 1204503, 5744170, 65993441 ####[address] [place] [address] ALP [Catalytic activity/Vol] 34 Int._Unit/L Normal 21-98 [facility] Comment on above: Performed By: #### 2 624603, 5231066, 8607442, 7212308, 3799224, 27240019 ####[facility] [address] [place] [address] ALT No additional P-5'-P [Catalytic activity/Vol] 13 Int._Unit/L Normal 6-46 [facility] Comment on above: Performed By: #### 2 979005, 0364705, 6362807, 6331150, 9589877, 23063098 ####[address] [place] [address] AST [Catalytic activity/Vol] 17 Int._Unit/L Normal 5-43 [facility] Comment on above: Performed By: #### 2 485488, 5059733, 6072924, 5518486, 8924219, 57322078 ####[facility] [address] [place] [address] Bilirubin [Mass/Vol] 0.6 mg/dL Normal 0.0-1.1 [facility] Comment on above: Performed By: #### 2 246949, 1398314, 4891748, 0644375, 9038131, 53855780 ####[facility] [address] [place] [address] Globulin (S) [Mass/Vol] 3.3 g/dL Normal 1.4-4.0 [facility] Comment on above: Performed By: #### 2 975438, 6493328, 1014662, 2957148, 1660681, 27539742 ####[facility] [address] [place] [address] Protein [Mass/Vol] 6.8 g/dL Normal 6.0-7.8 [facility] Comment on above: Performed By: #### 2 978577, 1017864, 0563293, 6036907, 9613982, 29445238 ####[facility] [address] [place] [address] Bilirubin.direct [Mass/Vol] mg/dL Normal 0.1-0.4 [facility] Comment on above: Performed By: #### 2 356846, 0745262, 7148009, 7841305, 7500795, 27149310 ####[facility] [address] [place] [address] Lipase Levelon 06-14-2023 Lipase [Catalytic activity/Vol] 28 U/L Normal 13-58 [facility] Comment on above: Performed By: #### 2 966273, 3356939, 2809780, 1273201, 0037856, 78544047 ####[facility] [address] [place] [address] Progress Note-Nurseon 2022 Progress Note-Nurse Lizet RN verbalize d she was unable to locate patient at this time Normal [facility] UA With Cult Reflexon 2022 Bacteria LM Ql (Urine sed) TRACE Normal Trace [facility] Comment on above: Performed By: #### 1 9015680 ####[facility] [address] [place] [address] Bilirubin Ql (U) Negative Normal Negative [facility] Comment on above: Performed By: #### 1 8794589 ####[facility] [address] [place] [address] Clarity (U) CLEAR Normal Clear [facility] Comment on above: Performed By: #### 1 8353677 ####[address] [address] Color (U) YELLOW Normal Yellow [facility] Comment on above: Performed By: #### 1 4710798 ####[address] [address] Epithelial cells.squamous LM.HPF (Urine sed) [#/Area] 3-4 Normal 0-2 [facility] Comment on above: Performed By: #### 1 6161392 ####[address] [address] Glucose Test strip (U) [Mass/Vol] Negative Normal Negative [facility] Comment on above: Performed By: #### 1 6413640 ####[address] [address] Hemoglobin Ql (U) Negative Normal Negative [facility] Comment on above: Performed By: #### 1 1870782 ####[address] [address] Ketones (U) [Mass/Vol] Negative Normal Negative [facility] Comment on above: Performed By: #### 1 6470710 ####[address] [address] [place].plasma/[place] .RBC (Bld) [Mass ratio] 0-3 Normal 0-3 [facility] Comment on above: Performed By: #### 1 0727084 ####[address] [address] Mucus Ql (Urine sed) TRACE Normal [facility] Comment on above: Performed By: #### 1 8978543 ####[address] [address] Nitrite Ql (U) Negative Normal Negative [facility] Comment on above: Performed By: #### 1 7988789 ####[address] [address] pH (U) 6.5 [pH] Invalid Interpretation Code 5.0-9.0 [facility] Comment on above: Performed By: #### 1 1630870 ####[address] [address] Protein (U) [Mass/Vol] Negative Normal Negative [facility] Comment on above: Performed By: #### 1 8148260 ####[address] [address] Specific gravity (U) [Rel density] 1.015 Invalid Interpretation Code 1.005-1.030 [facility] Comment on above: Performed By: #### 1 9538987 ####[address] [address] Type of Urine collection method Clean Catch Normal [facility] Comment on above: Performed By: #### 1 0618638 ####[address] [address] Urobilinogen Qn (U) 0.2 {Rola'U}/dL Normal 0.0-1.0 [facility] Comment on above: Performed By: #### 1 9655101 ####[address] [address] WBC Auto Ql (U) TRACE Abnormal Negative [facility] Comment on above: Performed By: #### 1 0950294 ####[address] [address] WBC LM.HPF (Urine sed) [#/Area] 0-5 Normal 0-5 [facility] Comment on above: Performed By: #### 1 2347586 ####[address] [address] URINALYSISOrdered By: An Mccarty on 06-14-2023 Bacteria LM Ql (Urine sed) Trace /HPF Normal Trace/HPF [facility] UA Auto SS Bilirubin Ql (U) Negative [...] AM) Normal Negative [facility] UA Auto SS [place].plasma/[place] .RBC (Bld) [Mass ratio] 0-3 /HPF Normal [...] [facility] UA Auto SS Urobilinogen Qn (U) 0.6964276 {Rola'U}/dL Normal 0.0 - 1.0 EU/dL [facility] UA Auto SS WBC Auto Ql (U) Trace *ABN* (06/14/23 10:13 AM) Invalid Interpretation Code Negative [facility] UA Auto SS WBC LM.HPF (Urine sed) [#/Area] 0-5 /HPF Normal 0-5/HPF [facility] UA Auto SS US 1st Trimesteron 06-14-2023 US 1st Trimester Normal [facility] eGFRon 06-14-2023 GFR/1.73 sq M.predicted among non-blacks MDRD (S/P/Bld) [Vol rate/Area] 130 mL/min/1.73 m2 Normal >=59 [facility] Comment on above: Order Comment: Order added by Discern Expert. Result Comment: Cartridge Gauger lucy kidney disease could be indicated at eGFR's of less than 60 mL/min/1.73m2. Kidney failure is indicated at less than 15 mL/min/1.73m2. Performed By: #### 2 878907, 1676778, 9499743, 3406879, 2906172, 84699096 ####[facility] [address] [place] [address] CHEMISTRYOrdered By: SYSTEM SYSTEM on 06-12-2023 TSH Qn 3.80 m[IU]/L Normal 0.34 - 5.60 mcIU/mL [facility] Remisol Consent for Treatmenton 05-16 Consent for Treatment [id number]#[id number]:12 7 Normal [facility] Physician Orderon 06-12-2023 Physician Order [id number]#[id number]:12 7 Normal [facility] TSHon 06-12-2023 TSH Qn 3.80 m[IU]/L Normal 0.34-5.60 [facility] Comment on above: Performed By: #### 2 871037 ####[facility] [address] [place] [address] BhCG Quanton 05-22-2023 HCG.beta subunit Qn 170242 m[IU]/mL High 1-3 [facility] Comment on above: Result Comment: GEST ATIONAL AGE HCG RANGE (mIU/mL) NON- <1-3 0.2-1 WEEKS 5-50 1-2 WEEKS 50-500 2-3 WEEKS 100-5,000 3-4 WEEKS 500-10,000 4-5 WEEKS 1,000-50,000 5-6 WEEKS 10,000-100,000 6-8 WEEKS 15,000-200,000 8-12 WEEKS 10,000-100,000 Performed By: #### 2 563997 ####[facility] [address] [place] [address] Discharge Instructionson Discharge Instructions [id number]#[id number]:1 27 Normal [facility] ED Clinical Summaryon 2022 ED Clinical Summary Normal [facility] ED Note-Physicianon 05-22-20 23 ED Note-Physician Normal [facility] Comment on above: Result Comment: Elec tronically Signed By: Gopi Rodriguez DO\.br\Date and Time Signed: 05/21/23 23:17 EDT ED Patient Education Noteon 05-22-2023 ED Patient Education Note Normal [facility] ED Patient Summaryon 023 ED Patient Summary Normal [facility] UA With Cult Reflexon 2022 Bacteria LM Ql (Urine sed) TRACE Normal Trace [facility] Comment on above: Performed By: #### 1 2061021 ####[facility] [address] [place] [address] Bilirubin Ql (U) Negative Normal Negative [facility] Comment on above: Performed By: #### 1 5667650 ####[facility] [address] [place] [address] Clarity (U) CLEAR Normal Clear [facility] Comment on above: Performed By: #### 1 2152542 ####[facility] [address] [place] [address] Color (U) DARK YELLO Abnormal Yellow [facility] Comment on above: Performed By: #### 1 3949047 ####[facility] [address] [place] [address] Epithelial cells.squamous LM.HPF (Urine sed) [#/Area] 0-2 Normal 0-2 [facility] Comment on above: Performed By: #### 1 3257683 ####[facility] [address] [place] [address] Glucose Test strip (U) [Mass/Vol] Negative Normal Negative [facility] Comment on above: Performed By: #### 1 3394349 ####[facility] [address] [place] [address] Hemoglobin Ql (U) TRACE Abnormal Negative [facility] Comment on above: Performed By: #### 1 5544730 ####[address] [address] Ketones (U) [Mass/Vol] TRACE Abnormal Negative [facility] Comment on above: Performed By: #### 1 0800679 ####[facility] [address] [place] [address] [place].plasma/[place] .RBC (Bld) [Mass ratio] 4-20 Normal 0-3 [facility] Comment on above: Performed By: #### 1 6843311 ####[address] [address] Mucus Ql (Urine sed) 1+ Normal [facility] Comment on above: Performed By: #### 1 4233860 ####[facility] [address] [place] [address] Nitrite Ql (U) Negative Normal Negative [facility] Comment on above: Performed By: #### 1 2871048 ####[address] [address] pH (U) 6.0 [pH] Invalid Interpretation Code 5.0-9.0 [facility] Comment on above: Performed By: #### 1 7410089 ####[facility] [address] [place] [address] Protein (U) [Mass/Vol] 2+ Abnormal Negative [facility] Comment on above: Performed By: #### 1 8983702 ####[address] [address] Specific gravity (U) [Rel density] >=1.030 Invalid Interpretation Code 1.005-1.030 [facility] Comment on above: Performed By: #### 1 6450878 ####[address] [place] [address] Type of Urine collection method Clean Catch Normal [facility] Comment on above: Performed By: #### 1 7569253 ####[address] [address] Urobilinogen Qn (U) 0.2 {Rola'U}/dL Normal 0.0-1.0 [facility] Comment on above: Performed By: #### 1 4730907 ####[address] [address] WBC Auto Ql (U) Negative Normal Negative [facility] Comment on above: Performed By: #### 1 3485108 ####[address] [address] WBC LM.HPF (Urine sed) [#/Area] 0-5 Normal 0-5 [facility] Comment on above: Performed By: #### 1 3326281 ####[address] [address] US 1st Trimesteron 05-22-2023 US 1st Trimester Normal [facility] Auto Diffon 05-21-2023 Basophils/100 WBC (Bld) 1.0 % Normal 0.0-2.0 [facility] Comment on above: Order Comment: Order Added by Discern Expert. Performed By: #### 2 336343, 0529624, 44788913, 22838069, 5148379, 9123400, 6577606 ####[address] [address] Basophils/Leukocytes Auto (Bld) [Pure # fraction] 0.1 E9/L Normal 0.0-0.2 [facility] Comment on above: Order Comment: Order Added by Discern Expert. Performed By: #### 2 709734, 6846766, 96776485, 40943959, 5423871, 4170415, 7512013 ####[address] [place] [address] Eosinophils/100 WBC (Bld) 1.5 % Normal 0.0-8.0 [facility] Comment on above: Order Comment: Order Added by Discern Expert. Performed By: #### 2 470624, 3742932, 72278191, 70739577, 4452929, 0496564, 1073449 ####[facility] [address] [place] [address] Eosinophils/Leukocytes Auto (Bld) [Pure # fraction] 0.1 E9/L Normal 0.0-0.5 [facility] Comment on above: Order Comment: Order Added by Discern Expert. Performed By: #### 2 786225, 1913734, 38229202, 27879624, 1154708, 0716923, 8694391 ####[address] [address] Lymphocytes/100 WBC (Bld) 36.6 % Normal 14.0-50.0 [facility] Comment on above: Order Comment: Order Added by Discern Expert. Performed By: #### 2 792158, 0101165, 27732376, 49903589, 4331354, 5740715, 4479681 ####[address] [address] Lymphocytes/Leukocytes Auto (Bld) [Pure # fraction] 2.5 E9/L Normal 1.0-4.0 [facility] Comment on above: Order Comment: Order Added by Discern Expert. Performed By: #### 2 246630, 7920386, 09674202, 86376480, 9708590, 5145794, 2526728 ####[address] [place] [address] Monocytes/100 WBC (Bld) 8.2 % Normal 4.0-14.0 [facility] Comment on above: Order Comment: Order Added by Discern Expert. Performed By: #### 2 461389, 7209991, 26193085, 37855012, 3350205, 3871849, 4847165 ####[address] [place] [address] Monocytes/Leukocytes Auto (Bld) [Pure # fraction] 0.6 E9/L Normal 0.2-1.0 [facility] Comment on above: Order Comment: Order Added by Discern Expert. Performed By: #### 2 496235, 2756253, 99474338, 57729885, 0776635, 6940988, 2678414 ####[facility] [address] [place] [address] Neutrophils/100 WBC (Bld) 52.7 % Normal 36.0-75.0 [facility] Comment on above: Order Comment: Order Added by Discern Expert. Performed By: #### 2 772669, 5444317, 28592751, 14372343, 1695812, 2403495, 1592152 ####[facility] [address] [place] [address] Neutrophils/Leukocytes Auto (Bld) [Pure # fraction] 3.6 E9/L Normal 2.0-7.5 [facility] Comment on above: Order Comment: Order Added by Discern Expert. Performed By: #### 2 347786, 3688621, 77337301, 78113465, 2224793, 5858116, 1907800 ####[facility] [address] [place] [address] BMPon 05-21-2023 Creatinine [Mass/Vol] 0.7 mg/dL Normal 0.5-1.3 [facility] Comment on above: Performed By: #### 2 804048, 4481820, 14855309, 34372977, 9207434, 0164783, 5136116 ####[facility] [address] [place] [address] Urea nitrogen [Mass/Vol] 8 mg/dL Normal 5-21 [facility] Comment on above: Performed By: #### 2 228685, 8821904, 87197889, 97494993, 6395764, 4044021, 5512218 ####[facility] [address] [place] [address] Urea nitrogen/Creatinine [Mass ratio] 11 No Units Normal 10-20 [facility] Comment on above: Performed By: #### 2 606494, 2213415, 93121300, 35786011, 4096738, 3552173, 2498040 ####[facility] [address] [place] [address] Anion gap [Moles/Vol] 12 mmol/L Normal 6-16 [facility] Comment on above: Performed By: #### 2 885165, 0362675, 39734145, 88130373, 2569161, 5829669, 4322135 ####[facility] [address] [place] [address] Calcium [Mass/Vol] 9.2 mg/dL Normal 8.9-11.1 [facility] Comment on above: Performed By: #### 2 780815, 8755428, 13200314, 70568081, 5467765, 4621703, 2552947 ####[facility] [address] [place] [address] Chloride [Moles/Vol] 104 mmol/L Normal 101-111 [facility] Comment on above: Performed By: #### 2 452976, 0894543, 37047669, 33621708, 9577450, 9132998, 2162733 ####[facility] [address] [place] [address] CO2 [Moles/Vol] 24 mmol/L Normal 21-31 [facility] Comment on above: Performed By: #### 2 584125, 6915642, 47198473, 83084205, 8334414, 8878753, 0271240 ####[facility] [address] [place] [facility] [place] [address] Glucose [Mass/Vol] 87 mg/dL Normal 55-199 [facility] Comment on above: Result Comment: If t his glucose result represents a fasting glucose, interpretation should refer to the following reference range: 55-99 mg/dL Performed By: #### 2 840230, 4169061, 49491995, 69039339, 4281210, 9131146, 9944745 ####[facility] [address] [place] [address] Potassium [Moles/Vol] 3.2 mmol/L Low 3.5-5.3 [facility] Comment on above: Performed By: #### 2 494247, 4988680, 21801869, 26303171, 2005646, 2744029, 4110685 ####[facility] [address] [place] [address] Sodium [Moles/Vol] 137 mmol/L Normal 135-145 [facility] Comment on above: Performed By: #### 2 403516, 1192325, 56020324, 30725437, 1319884, 9253071, 4042870 ####[facility] [address] [place] [address] CBC w/ Auto Diffon Erythrocyte distribution width (RBC) [Ratio] 13.3 % Normal 10.9-14.2 [facility] Comment on above: Performed By: #### 2 165194, 5551278, 89300539, 52719425, 2117349, 6840194, 7862113 ####[facility] [address] [place] [address] Hematocrit (Bld) [Volume fraction] 39.0 % Normal 34.0-46.0 [facility] Comment on above: Performed By: #### 2 992496, 3944133, 05382817, 97128691, 5248545, 9224913, 4186124 ####[facility] [address] [place] [address] Hemoglobin (Bld) [Mass/Vol] 13.3 g/dL Normal 12.0-16.0 [facility] Comment on above: Performed By: #### 2 632501, 9632733, 02758806, 78381493, 8713301, 5473912, 2507060 ####[facility] [address] [place] [address] MCH (RBC) [Entitic mass] 30.3 pg Normal 27.0-34.0 [facility] Comment on above: Performed By: #### 2 937602, 5435676, 62554162, 66499769, 6005918, 9231262, 8585835 ####[facility] [address] [place] [address] MCHC (RBC) [Mass/Vol] 34.2 g/dL Normal 31.4-36.0 [facility] Comment on above: Performed By: #### 2 774506, 9252726, 03188744, 68180081, 0987209, 1183604, 4277966 ####[facility] [address] [place] [address] MCV (RBC) [Entitic vol] 88.7 fL Normal 80.0-100.0 [facility] Comment on above: Performed By: #### 2 857711, 5257843, 06979243, 01417093, 2309029, 8891206, 5552154 ####[address] [address] Platelet mean volume (Bld) [Entitic vol] 7.8 fL Normal 6.4-10.8 [facility] Comment on above: Performed By: #### 2 169218, 8349751, 22853247, 70941675, 0796233, 7776547, 4044322 ####[address] [address] Platelets (Bld) [#/Vol] 225.0 E9/L Normal 150.0-500.0 [facility] Comment on above: Performed By: #### 2 367426, 6076636, 88420495, 68122054, 6256867, 0127140, 3463601 ####[address] [address] RBC (Bld) [#/Vol] 4.4 E12/L Normal 4.3-5.9 [facility] Comment on above: Performed By: #### 2 887503, 3749281, 15376918, 10505211, 3951362, 4756466, 7335685 ####[facility] [address] [place] [address] WBC corrected for nucl RBC Auto (Bld) [#/Vol] 6.8 E9/L Normal 4.0-11.0 [facility] Comment on above: Performed By: #### 2 282899, 4044646, 49140894, 15818053, 7192347, 7884189, 0640034 ####[facility] [address] [place] [address] CHEMISTRYOrdered By: SYSTEM SYSTEM on 05-21-2023 HCG.beta subunit Qn 841384 m[IU]/mL High 1 - 3 mIU/mL [facility] [...] 120 mL/min/1.73 m2 Normal >=59mL/min/ 1.73 m2 FT Chem S Globulin (S) [Mass/Vol] 3.1 g/dL Normal 1.4 - 4.0 gm/dL [facility] Remisol Glucose [Mass/Vol] 87 mg/dL Normal 55 - 199 mg/dL [facility] Remisol Lipase [Catalytic activity/Vol] 31 U/L Normal [...] Remisol Consent for Treatmenton Consent for Treatment [id number]#1.00CD:12 7 Normal [facility] HEMATOLOGYOrdered By: SYSTEM SYSTEM on [...] 4.4 E12/L Normal 4.3 - 5.9 E12/L [facility] HemeAutoSS WBC corrected for nucl RBC Auto (Bld) [#/Vol] 6.8 E9/L Normal 4.0 - 11.0 E9/L [facility] HemeAutoSS Hep Func Panelon 05-21-2023 Bilirubin.indirect [Mass or moles/Vol] UT Abnormal 0.1-0.9 [facility] Comment on above: Result Comment: Resu lt verified by Discern Rule. Performed result UT (Unable to Calculate) was sent as an Alpha code due the inability to calculate a valid numeric value. Performed By: #### 2 698790, 5105949, 77386628, 96430871, 1991135, 5744878, 3024432 ####[facility] [address] [place] [address] Albumin [Mass/Vol] 3.8 g/dL Normal 3.3-5.0 [facility] Comment on above: Performed By: #### 2 672895, 9778507, 97916930, 29453146, 0562133, 1557781, 2290911 ####[facility] [address] [place] [address] Albumin/Globulin (S) [Mass conc ratio] 1.2 Normal 1.1-2.2 [facility] Comment on above: Performed By: #### 2 661508, 8095529, 31848756, 55776335, 6169996, 9148033, 1060131 ####[facility] [address] [place] [address] ALP [Catalytic activity/Vol] 42 Int._Unit/L Normal 21-98 [facility] Comment on above: Performed By: #### 2 473579, 5540698, 04972753, 17217951, 5284587, 6180779, 6187511 ####[facility] [address] [place] [address] ALT No additional P-5'-P [Catalytic activity/Vol] 13 Int._Unit/L Normal 6-46 [facility] Comment on above: Performed By: #### 2 814066, 1121193, 52550806, 66861618, 8009048, 9443551, 8660481 ####[facility] [address] [place] [address] AST [Catalytic activity/Vol] 14 Int._Unit/L Normal 5-43 [facility] Comment on above: Performed By: #### 2 433879, 1120619, 41461331, 37649222, 1334766, 7380655, 2686428 ####[facility] [address] [place] [address] Bilirubin [Mass/Vol] 0.5 mg/dL Normal 0.0-1.1 [facility] Comment on above: Performed By: #### 2 969570, 2387313, 70508255, 01627221, 3023656, 8165969, 2375285 ####[address] [address] Globulin (S) [Mass/Vol] 3.1 g/dL Normal 1.4-4.0 [facility] Comment on above: Performed By: #### 2 313055, 5089234, 07279719, 43740335, 0857612, 0245596, 4770784 ####[facility] [address] [place] [address] Protein [Mass/Vol] 6.9 g/dL Normal 6.0-7.8 [facility] Comment on above: Performed By: #### 2 237146, 4218244, 43422562, 21830142, 2487001, 4935364, 0802697 ####[address] [address] Bilirubin.direct [Mass/Vol] mg/dL Normal 0.1-0.4 [facility] Comment on above: Performed By: #### 2 910134, 5591665, 41811019, 93779039, 4092257, 1267798, 4811405 ####[facility] [address] [place] [address] Lipase Levelon 05-21-2023 Lipase [Catalytic activity/Vol] 31 U/L Normal 13-58 [facility] Comment on above: Performed By: #### 2 535824, 7963835, 17060867, 39448223, 0218684, 6416266, 8886484 ####[facility] [address] [place] [address] Troponin 0 Hr.on 05-21-2023 Troponin I.cardiac [Mass/Vol] 2.50 pg/mL Low 10.10-27.10 [facility] Comment on above: Result Comment: The 95% CI (Confidence Interval) PPV (Positive Predictive Value) for myocardial infarction in females is 38 pg/mL, in males 51 pg/mL. The results should be used in conjunction with clinical conditions of myocardial infarction.(Access High Sensitivity Troponin I Instructions For Use, [employer], May 2018) Performed By: #### 2 891652, 6418167, 03184693, 85927349, 6640605, 7445869, 5831459 ####[facility] [address] [place] [address] URINALYSISOrdered By: Jose Miguel nelson on 05-21-2023 [...] Interpretation Code Negative [facility] UA Auto SS [place].plasma/[place] .RBC (Bld) [Mass ratio] 4-20 /HPF Normal [...] FT UA Auto SS Urobilinogen Qn (U) 0.2337575 {Rola'U}/dL Normal 0.0 - 1.0 EU/dL [facility] UA Auto SS WBC Auto Ql (U) Negative (05/21/23 10:17 PM) Normal Negative [facility] UA Auto SS WBC LM.HPF (Urine sed) [#/Area] 0-5 /HPF Normal 0-5/HPF [facility] UA Auto SS eGFRon 05-21-2023 GFR/1.73 sq M.predicted among non-blacks MDRD (S/P/Bld) [Vol rate/Area] 120 mL/min/1.73 m2 Normal >=59 [facility] Comment on above: Order Comment: Order added by Discern Expert. Result Comment: Cartridge Gauger lucy kidney disease could be indicated at eGFR's of less than 60 mL/min/1.73m2. Kidney failure is indicated at less than 15 mL/min/1.73m2. Performed By: #### 2 021114, 6611795, 04849152, 02630058, 4510752, 9500362, 1685585 ####[facility] [address] [place] [address] PAP [id number] 05-03-2023 C. trachomatis rRNA MAHAD+probe Ql (Cvx) Negative Invalid Interpretation Code Negative [facility] Comment on above: Performed By: #### 3 [id number] ####[facility] [address] [place] [address] Cytology report Cyto stain Doc (Cvx/Vag) Note Invalid Interpretation Code [facility] Comment on above: Result Comment: TEST S RESULT FLAG UNITS REF RANGE LAB Clinician Provided Cytology InformationSource.............EndocervixNo. of containers..01 ThinPrep VialDIAGNOSIS: 01NEGATIVE FOR INTRAEPITHELIAL LESION OR MALIGNANCY.Specimen adequacy: 01Satisfactory for evaluation. Endocervical and/or squamous metaplasticcells (endocervical component) are present.Performed by: [facility]ician (ASCP). 01Note: Note 01The Pap smear is [...] Normal,LL-Alert Low,HH-Alert High<-Panic Low,>-Panic High,A-Abnormal,AA-Critical Abnormal -----Performed at:[facility] Lab[address] Streetza[place] [address]Cwnqxv S Bendre MD, Performed By: #### 3 [id number] ####[facility] [address] [place] [address] N. gonorrhoeae rRNA MAHAD+probe Ql (Cvx) Negative Invalid Interpretation Code Negative [facility] Comment on above: Result Comment: Perf ormed at: [facility] [address] [facility] [place], [place] [id number] MD Anton HinsonPerformed at: =G [facility] [address] [facility] [place], [place] [id number] MD Anton Hinson Performed By: #### 3 [id number] ####[facility] [address] [place] [address] C Urineon 05-02-2023 Bacteria identified Cx Nom (U) Normal [facility] Comment on above: Performed By: #### 2 955152 ####[facility] [address] [place] [address] HIV Screen 4th Generation wR fxon 05-01-2023 HIV 1+2 Ab+HIV1 p24 Ag IA Ql Non-Reactive Invalid Interpretation Code Non Reactive [facility] Comment on above: Result Comment: HIV NegativeHIV-1/HIV-2 antibodies and HIV-1 p24 antigen were NOT detected.There is no laboratory evidence of HIV infection.Performed at: [facility] [address] [place], [place] [id number] PhD Caroline East Performed By: #### 1 76353430, 81040389, 189394340, 2901923, 0199000 ####[facility] [address] [place] [address] Hep Bs Agon 05-01-2023 HBV surface Ag IA Ql Negative Invalid Interpretation Code Negative [facility] Comment on above: Result Comment: Perf ormed at: [facility] [address] [place], [place] [id number] PhD Caroline [place] Performed By: #### 1 70101878, 15930090, 332645813, 8194526, 4901006 ####[facility] [address] [place] [address] RPR with Conf Rfxon 05-01-20 Reagin Ab RPR Ql (S) Non-Reactive Invalid Interpretation Code Non Reactive [facility] Comment on above: Result Comment: Perf ormed at: [place] [id number] [place], [place] [id number] PhD [facility] Performed By: #### 1 65239787, 83412935, 875429569, 6140673, 0204747 ####[address] [address] Rubella IgGon 05-01-2023 Rubella virus IgG Qn (S) [IU]/mL Low Immune >0.99 [facility] Comment on above: Result Comment: Non- immune <0.90Equivocal 0.90 - 0.99Immune >0.99Performed at: [place] [id number] [place], [place] [id number] PhD Caroline [facility] Performed By: #### 1 27764856, 54364569, 271450222, 6676459, 1738356 ####[address] [address] ABO/Rhon 04-30-2023 ABO/Rh Positive Invalid Interpretation Code [facility] Comment on above: Performed By: #### 2 839237, 59335035 ####[address] [address] ABSCon 04-30-2023 ABSC Gel Interp Negative Normal [facility] Comment on above: Performed By: #### 2 292230, 50154794 ####[address] [address] BLOOD BANKOrdered By: Diamond Junior on 04-30-2023 ABO/Rh Interp Positive Invalid Interpretation Code [facility] BB Subsection ABSC Gel Interp Negative (04/30/23 9:30 AM) Normal [facility] BB Subsection BhCG Quanton 04-30-2023 [place] [address] m[IU]/mL High 1-3 F [facility] Comment on above: Result Comment: GEST ATIONAL AGE HCG RANGE (mIU/mL) NON- <1-3 0.2-1 WEEKS 5-50 1-2 WEEKS 50-500 2-3 WEEKS 100-5,000 3-4 WEEKS 500-10,000 4-5 WEEKS 1,000-50,000 5-6 WEEKS 10,000-100,000 6-8 WEEKS 15,000-200,000 8-12 WEEKS 10,000-100,000 Performed By: #### 2 768918 ####[facility] [address] [place] [address] CBC w/Indiceson 04-30-2023 Erythrocyte distribution width (RBC) [Ratio] 13.7 % Normal 10.9-14.2 [facility] Comment on above: Performed By: #### 1 73607066, 48224265, 120350514, 5263489, 0476043 ####[facility] [address] [place] [address] Hematocrit (Bld) [Volume fraction] 40.7 % Normal 34.0-46.0 [facility] Comment on above: Performed By: #### 1 87571565, 57989246, 655172602, 4500939, 5635782 ####[facility] [address] [place] [address] Hemoglobin (Bld) [Mass/Vol] 13.8 g/dL Normal 12.0-16.0 [facility] Comment on above: Performed By: #### 1 70987954, 98095895, 396451693, 0840986, 1218727 ####[facility] [address] [place] [address] MCH (RBC) [Entitic mass] 30.5 pg Normal 27.0-34.0 [facility] Comment on above: Performed By: #### 1 63111349, 55906926, 981738835, 5577966, 9992364 ####[facility] [address] [place] [address] MCHC (RBC) [Mass/Vol] 33.9 g/dL Normal 31.4-36.0 [facility] Comment on above: Performed By: #### 1 71907008, 91088832, 345384867, 6363215, 1207630 ####[place] [place] [address] MCV (RBC) [Entitic vol] 89.9 fL Normal 80.0-100.0 [facility] Comment on above: Performed By: #### 1 39414769, 02894817, 595597798, 9231930, 1134991 ####[place] [address] [place] [address]157 Platelet mean volume (Bld) [Entitic vol] 8.2 fL Normal 6.4-10.8 [facility] Comment on above: Performed By: #### 1 22607921, 59474057, 283273732, 2978595, 1283725 ####[place] [address] Platelets (Bld) [#/Vol] 279.0 E9/L Normal 150.0-500.0 [facility] Comment on above: Performed By: #### 1 52388653, 76053500, 027522991, 4857592, 3797302 ####[address] [address] RBC (Bld) [#/Vol] 4.5 E12/L Normal 4.3-5.9 [facility] Comment on above: Performed By: #### 1 24950082, 47589421, 166905960, 1108984, 1060464 ####[place] [address] [place] [address] WBC corrected for nucl RBC Auto (Bld) [#/Vol] 5.8 E9/L Normal 4.0-11.0 [facility] Comment on above: Performed By: #### 1 38371815, 97287353, 642851452, 0343016, 5559152 ####[facility] [address] [place] [address] CHEMISTRYOrdered By: SYSTEM SYSTEM on 04-30-2023 [place] [address] m[IU]/mL High 1 - 3 mIU/mL [facility] Remisol Consent for Treatmenton 04-14 Consent for Treatment [id number]#1.00CD:12 7 Normal [facility] HEMATOLOGYOrdered By: Temi Romero on [...] 279.0 E9/L Normal 150.0 - 500.0 E9/L [facility] HemeAutoSS RBC (Bld) [#/Vol] 4.5 E12/L Normal 4.3 - 5.9 E12/L [facility] HemeAutoSS WBC corrected for nucl RBC Auto (Bld) [#/Vol] 5.8 E9/L Normal 4.0 - 11.0 E9/L [facility] HemeAutoSS PAP [id number] 04-30-2023 Collection Technique BRUSH-SPATULA Normal F [facility] Comment on above: Performed By: #### 3 [id number] ####[facility] [address] [place] [address] Gynecological Body Site ENDOCERVIX Normal [facility] Comment on above: Performed By: #### 3 190034100 ####[facility] [address] [place] [address] Physician Orderon 04-30-2023 Physician Order [id number]#1.00CD:1 [facility] Physician Order [id number]#1.00CD:1 27 [facility] BhCG Quanton 04-26-2023 [place] [address] m[IU]/mL High 1-3 F [facility] Comment on above: Result Comment: GEST ATIONAL AGE HCG RANGE (mIU/mL) NON- <1-3 0.2-1 WEEKS 5-50 1-2 WEEKS 50-500 2-3 WEEKS 100-5,000 3-4 WEEKS 500-10,000 4-5 WEEKS 1,000-50,000 5-6 WEEKS 10,000-100,000 6-8 WEEKS 15,000-200,000 8-12 WEEKS 10,000-100,000 Performed By: #### 2 586970 ####[facility] [address] [place] [address] CHEMISTRYOrdered By: SYSTEM SYSTEM on 04-26-2023 [place] [address] m[IU]/mL High 1 - 3 mIU/mL [facility] Remisol Consent for Treatmenton 04-14 Consent for Treatment [id number]#1.00CD:12 7 [facility] Discharge Instructionson Discharge Instructions [id number]#1.00CD:1 27 [facility] ED Clinical Summaryon 2022 ED Clinical Summary Normal [facility] ED Note-Physicianon 04-26-20 ED Note-Physician [facility] Comment on above: Result Comment: Elec tronically Signed By: Tram NICHOLS, Jos\.br\Date and Time Signed: 04/26/23 10:59 EDT\.br\Electronically Co-Signed By: Laura Noel M.D.\.br\Date and Time Co-Signed: 04/26/23 11:01 EDT ED Patient Education Noteon 04-26-2023 ED Patient Education Note Normal [facility] ED Patient Summaryon 023 ED Patient Summary Normal [facility] UA With Cult Reflexon 2022 Bilirubin Ql (U) Negative Normal Negative [facility] Comment on above: Performed By: #### 1 1555521 ####[facility] [address] [place] [address] Clarity (U) CLEAR Normal Clear [facility] Comment on above: Performed By: #### 1 0588162 ####[facility] [address] [facility] [place] [address] Color (U) YELLOW Normal Yellow [facility] Comment on above: Performed By: #### 1 4006201 ####[facility] [address] [facility] [place] [address] Crystals LM Ql (Urine sed) Present Normal [facility] Comment on above: Performed By: #### 1 5411779 ####[facility] [address] [facility] [place] [address] Epithelial cells.squamous LM.HPF (Urine sed) [#/Area] 0-2 Normal 0-2 [facility] Comment on above: Performed By: #### 1 1200070 ####[facility] [address] [facility] [place] [address] Glucose Test strip (U) [Mass/Vol] Negative Normal Negative [facility] Comment on above: Performed By: #### 1 4913544 ####[facility] [address] [facility] [place] [address] Hemoglobin Ql (U) Negative Normal Negative [facility] Comment on above: Performed By: #### 1 0828711 ####[facility] [address] [facility] [place] [address] Ketones (U) [Mass/Vol] Negative Normal Negative [facility] Comment on above: Performed By: #### 1 7075338 ####[address] [address] [place].plasma/[place] .RBC (Bld) [Mass ratio] 0-3 Normal 0-3 [facility] Comment on above: Performed By: #### 1 8986790 ####[address] [address] Mucus Ql (Urine sed) 2+ Normal [facility] Comment on above: Performed By: #### 1 3334696 ####[address] [address] Nitrite Ql (U) Negative Normal Negative [facility] Comment on above: Performed By: #### 1 1503341 ####[address] [address] pH (U) 8.5 [pH] Invalid Interpretation Code 5.0-9.0 [facility] Comment on above: Performed By: #### 1 3379411 ####[address] [address] Protein (U) [Mass/Vol] Negative Normal Negative [facility] Comment on above: Performed By: #### 1 0119717 ####[address] [address] Specific gravity (U) [Rel density] 1.015 Invalid Interpretation Code 1.005-1.030 [facility] Comment on above: Performed By: #### 1 6739156 ####[address] [address] Type of Urine collection method Clean Catch Normal [facility] Comment on above: Performed By: #### 1 2674529 ####[address] [address] Urobilinogen Qn (U) 1.0 {Rola'U}/dL Normal 0.0-1.0 [facility] Comment on above: Performed By: #### 1 6588992 ####[facility] [address] [place] [address] WBC Auto Ql (U) Negative Normal Negative [facility] Comment on above: Performed By: #### 1 1792473 ####[facility] [address] [place] [address] WBC LM.HPF (Urine sed) [#/Area] 0-5 Normal 0-5 [facility] Comment on above: Performed By: #### 1 1979198 ####[facility] [address] [place] [address] URINALYSISOrdered By: An Lassiter on 04-26-2023 Bilirubin [...] AM) Normal Negative [facility] UA Auto SS [place].plasma/[place] .RBC (Bld) [Mass ratio] 0-3 /HPF Normal [...] [Mass/Vol] Negative (04/26/23 9:15 AM) Normal Negative [facility] UA Auto SS Specific gravity (U) [Rel density] 1.015 *NA* (04/26/23 9:15 AM) Invalid Interpretation Code 1.005 - 1.030 [facility] UA Auto SS UA Spec Desc Clean Catch (04/26/23 9:15 AM) Normal [facility] UA Auto SS Urobilinogen Qn (U) 1.5255514 {Rola'U}/dL Normal 0.0 - 1.0 EU/dL [facility] UA Auto SS WBC Auto Ql (U) Negative (04/26/23 9:15 AM) Normal Negative [facility] UA Auto SS WBC LM.HPF (Urine sed) [#/Area] 0-5 /HPF Normal 0-5/HPF [facility] UA Auto SS US 1st Trimesteron 04-26-2023 US 1st Trimester Normal [facility] US Transvaginalon 04-26-2023 Transvaginal Normal [facility] Coding Summary.on 02-02-2023 Coding Summary. Normal [facility] Auto Diffon 01-31-2023 Basophils/100 WBC (Bld) 0.3 % Normal 0.0-2.0 [facility] Comment on above: Order Comment: Order Added by Discern Expert. Performed By: #### 2 466749, 6397018, 55834482, 5631879 ####[facility] [address] [place] [address] Basophils/Leukocytes Auto (Bld) [Pure # fraction] 0.0 E9/L Normal 0.0-0.2 [facility] Comment on above: Order Comment: Order Added by Discern Expert. Performed By: #### 2 264553, 6643443, 25114974, 7081046 ####[facility] [address] [place] [address] Eosinophils/100 WBC (Bld) 2.8 % Normal 0.0-8.0 [facility] Comment on above: Order Comment: Order Added by Discern Expert. Performed By: #### 2 946903, 7882498, 62290661, 9481592 ####[facility] [address] [place] [address] Eosinophils/Leukocytes Auto (Bld) [Pure # fraction] 0.1 E9/L Normal 0.0-0.5 [facility] Comment on above: Order Comment: Order Added by Discern Expert. Performed By: #### 2 575452, 3344966, 51629394, 9580954 ####[address] [address] Lymphocytes/100 WBC (Bld) 30.0 % Normal 14.0-50.0 [facility] Comment on above: Order Comment: Order Added by Discern Expert. Performed By: #### 2 099492, 3417155, 67294481, 9327720 ####[address] [address] Lymphocytes/Leukocytes Auto (Bld) [Pure # fraction] 1.5 E9/L Normal 1.0-4.0 [facility] Comment on above: Order Comment: Order Added by Gisselle Expert. Performed By: #### 2 027792, 8260507, 28548877, 6587605 ####[address] [address] Monocytes/100 WBC (Bld) 7.0 % Normal 4.0-14.0 [facility] Comment on above: Order Comment: Order Added by Discern Expert. Performed By: #### 2 267769, 6443532, 53918710, 5630195 ####[address] [address] Monocytes/Leukocytes Auto (Bld) [Pure # fraction] 0.4 E9/L Normal 0.2-1.0 [facility] Comment on above: Order Comment: Order Added by Discern Expert. Performed By: #### 2 851811, 4933604, 27623239, 5294290 ####[place] [address] [place] [address] Neutrophils/100 WBC (Bld) 59.9 % Normal 36.0-75.0 [facility] Comment on above: Order Comment: Order Added by Discern Expert. Performed By: #### 2 595531, 1674324, 51509348, 8585228 ####[facility] [address] [place] [address] Neutrophils/Leukocytes Auto (Bld) [Pure # fraction] 3.1 E9/L Normal 2.0-7.5 [facility] Comment on above: Order Comment: Order Added by Discern Expert. Performed By: #### 2 992627, 9328551, [id number], 7752664 ####[facility] [address] [place] [address] B hCG Qualon 01-31-2023 Beta hCG Ql Negative Normal [facility] Comment on above: Performed By: #### 2 9333989, [id number] ####[facility] [address] [place] [address] BMPon 01-31-2023 Creatinine [Mass/Vol] 0.8 mg/dL Normal 0.5-1.3 [facility] Comment on above: Performed By: #### 2 071826, 7479677, 08655107, 4716019 ####[facility] [address] [place] [address] Urea nitrogen [Mass/Vol] 9 mg/dL Normal 5-21 [facility] Comment on above: Performed By: #### 2 660862, 5571126, 97632490, 6551619 ####[facility] [address] [place] [address] Urea nitrogen/Creatinine [Mass ratio] 11 No Units Normal 10-20 [facility] Comment on above: Performed By: #### 2 122538, 5732126, 58556111, 3411873 ####[facility] [address] [place] [address] Anion gap [Moles/Vol] 12 mmol/L Normal 6-16 [facility] Comment on above: Performed By: #### 2 038341, 0104974, 84300765, 6478002 ####[facility] [address] [place] [address] Calcium [Mass/Vol] 9.1 mg/dL Normal 8.9-11.1 [facility] Comment on above: Performed By: #### 2 000788, 0705190, 78010669, 9039004 ####[facility] [address] [place] [address] Chloride [Moles/Vol] 104 mmol/L Normal 101-111 [facility] Comment on above: Performed By: #### 2 113060, 3091546, 49595901, 6391072 ####[facility] [address] [place] [address] CO2 [Moles/Vol] 23 mmol/L Normal 21-31 [facility] Comment on above: Performed By: #### 2 522336, 2179636, 44739742, 0287821 ####[facility] [address] [place] [address] Glucose [Mass/Vol] 84 mg/dL Normal 55-199 [facility] Comment on above: Result Comment: If t his glucose result represents a fasting glucose, interpretation should refer to the following reference range: 55-99 mg/dL Performed By: #### 2 594643, 8018108, 87470153, 9357873 ####[facility] [address] [place] [address] Potassium [Moles/Vol] 3.5 mmol/L Normal 3.5-5.3 [facility] Comment on above: Performed By: #### 2 857652, 4835869, 69195519, 7326537 ####[facility] [address] [place] [address] Sodium [Moles/Vol] 135 mmol/L Normal 135-145 [facility] Comment on above: Performed By: #### 2 192621, 1611026, 08999214, 3437460 ####[facility] [address] [place] [address] CBC w/ Auto Diffon 3 Erythrocyte distribution width (RBC) [Ratio] 12.9 % Normal 10.9-14.2 [facility] Comment on above: Performed By: #### 2 102838, 8748253, 79515848, 9956702 ####[place] [address] [place] 6027157 Hematocrit (Bld) [Volume fraction] 46.4 % High 34.0-46.0 [facility] Comment on above: Performed By: #### 2 115835, 3162802, 34401340, 1792284 ####[place] 6[address]4057 Hemoglobin (Bld) [Mass/Vol] 15.0 g/dL Normal 12.0-16.0 [facility] Comment on above: Performed By: #### 2 433828, 0859746, 66618832, 5515316 ####[place] 6[address]4057 MCH (RBC) [Entitic mass] 28.6 pg Normal 27.0-34.0 [facility] Comment on above: Performed By: #### 2 486167, 4794191, 32460455, 8134969 ####[place] 6[address]4057 MCHC (RBC) [Mass/Vol] 32.3 g/dL Normal 31.4-36.0 [facility] Comment on above: Performed By: #### 2 227841, 2050753, 25578677, 9105361 ####[place] 6[address]4057 MCV (RBC) [Entitic vol] 88.5 fL Normal 80.0-100.0 [facility] Comment on above: Performed By: #### 2 393071, 3888089, 82471392, 8605608 ####[address] [address] Platelet mean volume (Bld) [Entitic vol] 7.9 fL Normal 6.4-10.8 [facility] Comment on above: Performed By: #### 2 764915, 0798054, 14971431, 5800843 ####[address] [place] [address] Platelets (Bld) [#/Vol] 300.0 E9/L Normal 150.0-500.0 [facility] Comment on above: Performed By: #### 2 767941, 8784646, 03260744, 3384131 ####[facility] [address] [place] [address] RBC (Bld) [#/Vol] 5.2 E12/L Normal 4.3-5.9 [facility] Comment on above: Performed By: #### 2 693816, 4530106, 11421376, 6170821 ####[facility] [address] [place] [address] WBC corrected for nucl RBC Auto (Bld) [#/Vol] 5.1 E9/L Normal 4.0-11.0 [facility] Comment on above: Performed By: #### 2 251481, 7191560, 19214602, 8550656 ####[facility] [address] [place] [address] CHEMISTRYOrdered By: SYSTEM SYSTEM on 01-31-2023 Anion gap [Moles/Vol] 12 mmol/L Normal 6 - 16 mEq/L [facility] Remisol Calcium [Mass/Vol] 9.1 mg/dL Normal 8.9 - 11. 1 mg/dL [facility] Chloride [Moles/Vol] 104 mmol/L Normal 101 - 1 11 mmol/L [facility] CO2 [Moles/Vol] 23 mmol/L Normal 21 - 31 mmol/L [facility] Remisol Creatinine [Mass/Vol] 0.8 mg/dL Normal 0.5 - 1.3 mg/dL [facility] GFR/1.73 sq M.predicted among blacks MDRD (S/P/Bld) [Vol rate/Area] mL/min/1.73 m2 Normal >=59mL/min/ 1.73 m2 [facility] Chem S GFR/1.73 sq M.predicted among non-blacks MDRD (S/P/Bld) [Vol rate/Area] mL/min/1.73 m2 Normal >=59mL/min/ 1.73 m2 [facility] Chem S Glucose [Mass/Vol] 84 mg/dL Normal 55 - 199 mg/dL [facility] Remisol Potassium [Moles/Vol] 3.5 mmol/L Normal 3.5 - 5.3 mmol/L [facility] Remisol Sodium [Moles/Vol] 135 mmol/L Normal 135 - 145 mmol/L [facility] Remisol Urea nitrogen [Mass/Vol] 9 mg/dL Normal 5 - 21 mg/dL [facility] Remisol Urea nitrogen/Creatinine [Mass ratio] 11 mg/mg Normal 10 - 20 [facility] Remisol COAGULATIONOrdered By: Disha Mccarty on 01-31-2023 aPTT Coag (PPP) [Time] 31.3 s Normal 25.1 - 36.5 second(s) [facility] Auto Coag INR Coag (PPP) [Relative time] 1.1 {INR} Invalid Interpretation Code [facility] Auto Coag PT Coag (PPP) [Time] 12.3 s Normal 9.4 - 1 2.5 second(s) [facility] Auto Coag CTA Headon 01-31-2023 CTA Head Normal [facility] Consent for Treatmenton 01-13 Consent for Treatment [id number]#1.00CD:12 7 Normal [facility] Discharge Instructionson Discharge Instructions [id number]#1.00CD:1 27 Normal [facility] ED Clinical Summaryon 2022 ED Clinical Summary Normal [facility] ED Note-Physicianon 02-01-20 ED Note-Physician Normal [facility] Comment on above: Result Comment: Elec tronically Signed By: Kristian Guillermo DO.br\Date and Time Signed: 01/31/23 14:00 EDT ED Patient Education Noteon 01-31-2023 ED Patient Education Note Normal [facility] ED Patient Summaryon 023 ED Patient Summary Normal [facility] HEMATOLOGYOrdered By: SYSTEM SYSTEM on 01-31-2023 Basophils/100 WBC (Bld) 0.3 % Normal 0.0 - 2.0 % [facility] HemeAutoSS Basophils/Leukocytes Auto (Bld) [Pure # fraction] [...] 300.0 E9/L Normal 150.0 - 500.0 E9/L [facility] HemeAutoSS RBC (Bld) [#/Vol] 5.2 E12/L Normal 4.3 - 5.9 E12/L [facility] HemeAutoSS WBC corrected for nucl RBC Auto (Bld) [#/Vol] 5.1 E9/L Normal 4.0 - 11.0 E9/L [facility] HemeAutoSS PT & PTTon 01-31-2023 aPTT Coag (PPP) [Time] 31.3 second(s) Normal 25.1-36.5 [facility] Comment on above: Result [...] the same coagulation reagent and instrumentation as [facility]. Currently there are no coagulation studies available worldwide for children to 14 days, and no normal ranges. Heparin therapeutic range (represented by Anti-Factor Xa activity of 0.2 - 0.4 U/mL) corresponds to PTT of 56.6 - 109.0 sec. Performed By: #### 2 6175811, [id number] ####[facility] [address] [place] [address] INR Coag (PPP) [Relative time] 1.1 {INR} Invalid Interpretation Code [facility] Comment on above: Result Comment: INR results are specifically intended to assess patients stabilized on long-term Anticoagulation therapy suggested INR?s ?Less Intensive Anticoagulation? 2.0 ? 3.0Conventional Range 3.0 ? 4.5 Performed By: #### 2 4568773, 38927501 ####[facility] [address] [place] [address] PT Coag (PPP) [Time] 12.3 second(s) Normal 9.4-12.5 [facility] Comment on above: Result [...] the same coagulation reagent and instrumentation as [facility]. Currently there are no coagulation studies available worldwide for children to 14 days, and no normal ranges. Performed By: #### 2 4666753, 67690726 ####[facility] [address] [place] [address] Pre-Arrival Noteon 3 Pre-Arrival Note Normal [facility] SEROLOGYOrdered By: Nova Mccarty on 01-31-2023 Beta hCG Ql Negative (01/31/23 10:14 AM) Normal [facility] Man Sero eGFRon 01-31-2023 GFR/1.73 sq M.predicted among blacks MDRD (S/P/Bld) [Vol rate/Area] mL/min/{1.73_m2} Normal >=59 [facility] Comment on above: Order Comment: Order added by Discern Expert. Result Comment: eGFR is race adjusted. AA=. Performed By: #### 2 661169, 3171573, 05249170, 7629425 ####[facility] [address] [place] [address] GFR/1.73 sq M.predicted among non-blacks MDRD (S/P/Bld) [Vol rate/Area] mL/min/{1.73_m2} Normal >=59 [facility] Comment on above: Order Comment: Order added by Discern Expert. Result Comment: Cartridge Gauger lucy kidney disease could be indicated at eGFR's of less than 60 mL/min/1.73m2. Kidney failure is indicated at less than 15 mL/min/1.73m2. Performed By: #### 2 968687, 3661499, 97727848, 1139985 ####[facility] [address] [place] [address] Nursing Assessmenton 023 Nursing Assessment [id number]#1.00CD:1 27 Normal [facility] Coding Summary.on 10-02-2022 Coding Summary. Normal [facility] Coding Summary. Normal [facility] Delivery Summaryon Delivery Summary Normal [facility] Comment on above: Result Comment: Elec tronically Signed By: Fabiana MARION, Luis Carlos Byrd\.br\Date and Time Signed: 09/29/22 09:25 EST General Message Officeon General Message Office Normal [facility] Insurance Correspondence Off iceon 09-28-2022 Insurance Correspondence Office [id number]#1.00CD:1 27 Normal [facility] Discharge Instructionson Discharge Instructions [id number]#1.00CD:12 7 Normal [facility] Inpatient Clinical Summaryon 09-27-2022 Inpatient Clinical Summary Normal [facility] Inpatient Patient Summaryon 09-27-2022 Inpatient Patient Summary Normal [facility] CBC w/Indiceson 09-26-2022 Erythrocyte distribution width (RBC) [Ratio] 13.1 % Normal 10.9-14.2 [facility] Comment on above: Performed By: #### 2 043370 ####[facility] [address] [place] [address] Hematocrit (Bld) [Volume fraction] 32.1 % Low 34.0-46.0 [facility] Comment on above: Performed By: #### 2 331132 ####[facility] [address] [place] [address] Hemoglobin (Bld) [Mass/Vol] 11.1 g/dL Low 12.0-16.0 [facility] Comment on above: Performed By: #### 2 561891 ####[address] [address] MCH (RBC) [Entitic mass] 30.9 pg Normal 27.0-34.0 [facility] Comment on above: Performed By: #### 2 295925 ####[address] [address] MCHC (RBC) [Mass/Vol] 34.5 g/dL Normal 31.4-36.0 [facility] Comment on above: Performed By: #### 2 162934 ####[address] [address] MCV (RBC) [Entitic vol] 89.7 fL Normal 80.0-100.0 [facility] Comment on above: Performed By: #### 2 916826 ####[address] [address] Platelet mean volume (Bld) [Entitic vol] 10.1 fL Normal 6.4-10.8 [facility] Comment on above: Performed By: #### 2 319318 ####[address] [address] Platelets (Bld) [#/Vol] 204.0 E9/L Normal 150.0-500.0 [facility] Comment on above: Performed By: #### 2 623902 ####[address] [address] RBC (Bld) [#/Vol] 3.6 E12/L Low 4.3-5.9 [facility] Comment on above: Performed By: #### 2 054569 ####[address] [address] WBC corrected for nucl RBC Auto (Bld) [#/Vol] 23.2 E9/L High 4.0-11.0 [facility] Comment on above: Performed By: #### 2 557462 ####[facility] [address] [place] [address] Nursing Assessmenton 022 Nursing Assessment [id number]#1.00CD:12 7 [facility] Progress Note-Physicianon Progress Note-Physician [facility] Comment on above: Result Comment: Elec tronically Signed By: Luis Carlos Jung MD\.br\Date and Time Signed: 09/26/22 08:19 EST Coding Summary.on 09-25-2022 Coding Summary. [facility] Coding Summary. [facility] Consenton 09-25-2022 Consent [id number]#1.00CD:1 27 [facility] Consent for Anesthesiaon Consent for Anesthesia [id number]#1.00CD:12 7 [facility] Discharge Instructionson Discharge Instructions [id number]#1.00CD:1 27 [facility] Help Me Grow Referralon 09-14 Help Me Grow Referral [id number]#1.00CD:12 7 [facility] Recordson Records [id number]#1.00CD:12 7 [facility] Progress Note-Physicianon Progress Note-Physician [facility] Comment on above: Result Comment: Elec tronically Signed By: Jimmy Corcroan Jr., DO.br\Date and Time Signed: 09/25/22 08:31 EST Progress Note-Physician [facility] Comment on above: Result Comment: Elec tronically Signed By: Corcoran Jr. DO, Jimmy G\.br\Date and Time Signed: 09/25/22 08:31 EST UA With Cult Reflexon 2021 Bilirubin Ql (U) Negative Normal Negative [facility] Comment on above: Order Comment: Urina ry Catheter Insertion triggered Urinalysis With Culture Reflex order by discern. Performed By: #### 1 8528417 ####[facility] [address] [place] [address] Clarity (U) CLEAR Normal Clear [facility] Comment on above: Order Comment: Urina ry Catheter Insertion triggered Urinalysis With Culture Reflex order by discern. Performed By: #### 1 3651900 ####[facility] [address] [place] [address] Color (U) YELLOW Normal Yellow [facility] Comment on above: Order Comment: Urina ry Catheter Insertion triggered Urinalysis With Culture Reflex order by discern. Performed By: #### 1 7102958 ####[facility] [address] [place] [address] Epithelial cells.squamous LM.HPF (Urine sed) [#/Area] 0-2 Normal 0-2 [facility] Comment on above: Order Comment: Urina ry Catheter Insertion triggered Urinalysis With Culture Reflex order by discern. Performed By: #### 1 5727648 ####[facility] [address] [place] [address] Glucose Test strip (U) [Mass/Vol] Negative Normal Negative [facility] Comment on above: Order Comment: Urina ry Catheter Insertion triggered Urinalysis With Culture Reflex order by discern. Performed By: #### 1 3928945 ####[facility] [address] [place] [address] Hemoglobin Ql (U) Negative Normal Negative [facility] Comment on above: Order Comment: Urina ry Catheter Insertion triggered Urinalysis With Culture Reflex order by discern. Performed By: #### 1 2299152 ####[facility] [address] [place] [address] Ketones (U) [Mass/Vol] Negative Normal Negative [facility] Comment on above: Order Comment: Urina ry Catheter Insertion triggered Urinalysis With Culture Reflex order by discern. Performed By: #### 1 5660697 ####[address] [address] [place].plasma/[place] .RBC (Bld) [Mass ratio] 0-3 Normal 0-3 [facility] Comment on above: Order Comment: Urina ry Catheter Insertion triggered Urinalysis With Culture Reflex order by discern. Performed By: #### 1 5227328 ####[address] [address] Nitrite Ql (U) Negative Normal Negative [facility] Comment on above: Order Comment: Urina ry Catheter Insertion triggered Urinalysis With Culture Reflex order by discern. Performed By: #### 1 7067102 ####[address] [address] pH (U) 7.0 [pH] Invalid Interpretation Code 5.0-9.0 [facility] Comment on above: Order Comment: Urina ry Catheter Insertion triggered Urinalysis With Culture Reflex order by discern. Performed By: #### 1 2548314 ####[address] [address] Protein (U) [Mass/Vol] Negative Normal Negative [facility] Comment on above: Order Comment: Urina ry Catheter Insertion triggered Urinalysis With Culture Reflex order by discern. Performed By: #### 1 1525337 ####[address] [address] Specific gravity (U) [Rel density] <=1.005 Invalid Interpretation Code 1.005-1.030 [facility] Comment on above: Order Comment: Urina ry Catheter Insertion triggered Urinalysis With Culture Reflex order by discern. Performed By: #### 1 4620132 ####[address] [address] Type of Urine collection method Vyas Normal [facility] Comment on above: Order Comment: Urina ry Catheter Insertion triggered Urinalysis With Culture Reflex order by discern. Performed By: #### 1 6843033 ####[address] [place] [address] Urobilinogen Qn (U) 0.2 {Rola'U}/dL Normal 0.0-1.0 [facility] Comment on above: Order Comment: Urina ry Catheter Insertion triggered Urinalysis With Culture Reflex order by discern. Performed By: #### 1 5529665 ####[facility] [address] [place] [address] WBC Auto Ql (U) Negative Normal Negative [facility] Comment on above: Order Comment: Urina ry Catheter Insertion triggered Urinalysis With Culture Reflex order by discern. Performed By: #### 1 9585880 ####[address] [address] WBC LM.HPF (Urine sed) [#/Area] 0-5 Normal 0-5 [facility] Comment on above: Order Comment: Urina ry Catheter Insertion triggered Urinalysis With Culture Reflex order by discern. Performed By: #### 1 9105514 ####[address] [address] Bilirubin Ql (U) Negative Normal Negative [facility] Comment on above: Performed By: #### 1 1961475 ####[address] [address] Clarity (U) CLEAR Normal Clear [facility] Comment on above: Performed By: #### 1 8491854 ####[address] [address] Color (U) YELLOW Normal Yellow [facility] Comment on above: Performed By: #### 1 7773004 ####[address] [address] Epithelial cells.squamous LM.HPF (Urine sed) [#/Area] 0-2 Normal 0-2 [facility] Comment on above: Performed By: #### 1 3236262 ####[address] [address] Glucose Test strip (U) [Mass/Vol] Negative Normal Negative [facility] Comment on above: Performed By: #### 1 0040009 ####[facility] [address] [place] [address] Hemoglobin Ql (U) Negative Normal Negative [facility] Comment on above: Performed By: #### 1 2236739 ####[address] [address] Ketones (U) [Mass/Vol] Negative Normal Negative [facility] Comment on above: Performed By: #### 1 3960988 ####[address] [address] [place].plasma/[place] .RBC (Bld) [Mass ratio] 0-3 Normal 0-3 [facility] Comment on above: Performed By: #### 1 9157437 ####[address] [address] Nitrite Ql (U) Negative Normal Negative [facility] Comment on above: Performed By: #### 1 8063546 ####[address] [address] pH (U) 6.0 [pH] Invalid Interpretation Code 5.0-9.0 [facility] Comment on above: Performed By: #### 1 2221313 ####[address] [address] Protein (U) [Mass/Vol] Negative Normal Negative [facility] Comment on above: Performed By: #### 1 1424813 ####[address] [address] Specific gravity (U) [Rel density] <=1.005 Invalid Interpretation Code 1.005-1.030 [facility] Comment on above: Performed By: #### 1 4375192 ####[address] [address] Type of Urine collection method Clean Catch Normal [facility] Comment on above: Performed By: #### 1 8190947 ####[address] [address] Urobilinogen Qn (U) 0.2 {Rola'U}/dL Normal 0.0-1.0 [facility] Comment on above: Performed By: #### 1 9239388 ####[facility] [address] [place] [address] WBC Auto Ql (U) Negative Normal Negative [facility] Comment on above: Performed By: #### 1 2500575 ####[facility] [address] [place] [address] WBC LM.HPF (Urine sed) [#/Area] 0-5 Normal 0-5 [facility] Comment on above: Performed By: #### 1 0112754 ####[facility] [address] [place] [address] Vaccinationson 09-25-2022 Vaccinations [id number]#1.00CD:1 27 Normal [facility] Vaccinations [id number]#1.00CD:1 27 Normal [facility] ABO/Rhon 09-24-2022 ABO/Rh Positive Invalid Interpretation Code [facility] Comment on above: Performed By: #### 1 9992211, 45828437, 88187621, 2648602 ####[facility] [address] [place] [address] ABO/Rh History Checkon 09-24 ABO/Rh History Check Verified Hx Blood Type Normal [facility] Comment on above: Performed By: #### 1 2542784, 62866839, 52347314, 7864208 ####[facility] [address] [place] [address] ABSCon 09-24-2022 ABSC Gel Interp Negative Normal [facility] Comment on above: Performed By: #### 1 4133831, 19926071, 78431391, 4046036 ####[facility] [address] [place] [address] Blood Bank ID#on 09-24-2022 BBID# [id number] Invalid Interpretation Code [facility] Comment on above: Performed By: #### 1 2534324, 63615176, 35189839, 4648669 ####[place] [address] [place] [address] CBC w/Indiceson 09-24-2022 Erythrocyte distribution width (RBC) [Ratio] 13.0 % Normal 10.9-14.2 [facility] Comment on above: Performed By: #### 2 973535 ####[address] [address] Hematocrit (Bld) [Volume fraction] 38.0 % Normal 34.0-46.0 [facility] Comment on above: Performed By: #### 2 151069 ####[address] [address] Hemoglobin (Bld) [Mass/Vol] 12.8 g/dL Normal 12.0-16.0 [facility] Comment on above: Performed By: #### 2 572148 ####[address] [address] MCH (RBC) [Entitic mass] 31.3 pg Normal 27.0-34.0 [facility] Comment on above: Performed By: #### 2 509759 ####[address] [address] MCHC (RBC) [Mass/Vol] 33.7 g/dL Normal 31.4-36.0 [facility] Comment on above: Performed By: #### 2 382520 ####[address] [address] MCV (RBC) [Entitic vol] 92.9 fL Normal 80.0-100.0 [facility] Comment on above: Performed By: #### 2 445128 ####[address] [address] [address] Platelet mean volume (Bld) [Entitic vol] 9.8 fL Normal 6.4-10.8 [facility] Comment on above: Performed By: #### 2 342612 ####[facility] [place] [address] Platelets (Bld) [#/Vol] 238.0 E9/L Normal 150.0-500.0 [facility] Comment on above: Performed By: #### 2 207012 ####[facility] [address] [place] [address] RBC (Bld) [#/Vol] 4.1 E12/L Low 4.3-5.9 [facility] Comment on above: Performed By: #### 2 963813 ####[facility] [address] [place] [address] WBC corrected for nucl RBC Auto (Bld) [#/Vol] 12.8 E9/L High 4.0-11.0 [facility] Comment on above: Performed By: #### 2 234924 ####[facility] [address] [place] [address] Consent for Treatmenton 09-14 Consent for Treatment [id number]#1.00CD:12 7 Normal [facility] Consent for Treatment [id number]#1.00CD:1 27 Normal [facility] Consent for Treatmenton Consent for Treatment [id number]#1.00CD:12 7 Normal [facility] Discharge Instructionson Discharge Instructions [id number]#1.00CD:12 7 Normal [facility] Inpatient Clinical Summaryon 09-22-2022 Inpatient Clinical Summary Normal [facility] Inpatient Patient Summaryon 09-22-2022 Inpatient Patient Summary Normal [facility] Insurance Correspondence Off iceon 09-22-2022 Insurance Correspondence Office [id number]#1.00CD: 127 Normal [facility] Nursing Assessmenton 022 Nursing Assessment [id number]#1.00CD:1 27 Normal [facility] Nursing Assessment [id number]#1.00CD:12 7 [facility] Discharge Instructionson Discharge Instructions [id number]#1.00CD:127 Normal [facility] Inpatient Clinical Summaryon 09-20-2022 Inpatient Clinical Summary Normal [facility] Inpatient Patient Summaryon 09-20-2022 Inpatient Patient Summary [facility] Insurance Correspondence Off iceon 09-20-2022 Insurance Correspondence Office [id number]#1.00CD:127 [facility] Consent for Treatmenton Consent for Treatment [id number]#1.00CD:12 7 Normal [facility] Discharge Instructionson Discharge Instructions [id number]#1.00CD:1 27 Normal [facility] Inpatient Clinical Summaryon 09-19-2022 Inpatient Clinical Summary Normal [facility] Inpatient Patient Summaryon 09-19-2022 Inpatient Patient Summary [facility] Insurance Correspondenceon 11-20-2021 Insurance Correspondence [id number]#1.00CD:1 27 Normal [facility] UA With Cult Reflexon 2021 Bilirubin Ql (U) Negative Normal Negative [facility] Comment on above: Performed By: #### 1 4031603 ####[facility] [address] [place] [address] Clarity (U) CLEAR Normal Clear [facility] Comment on above: Performed By: #### 1 7686862 ####[facility] [address] [place] [address] Color (U) YELLOW Normal Yellow [facility] Comment on above: Performed By: #### 1 0536772 ####[facility] [address] [place] [address] Epithelial cells.squamous LM.HPF (Urine sed) [#/Area] 0-2 Normal 0-2 [facility] Comment on above: Performed By: #### 1 7549582 ####[address] [address] Glucose Test strip (U) [Mass/Vol] Negative Normal Negative [facility] Comment on above: Performed By: #### 1 9284289 ####[address] [address] Hemoglobin Ql (U) Negative Normal Negative [facility] Comment on above: Performed By: #### 1 1785394 ####[address] [address] Ketones (U) [Mass/Vol] Negative Normal Negative [facility] Comment on above: Performed By: #### 1 2370136 ####[address] [address] [place].plasma/[place] .RBC (Bld) [Mass ratio] 0-3 Normal 0-3 [facility] Comment on above: Performed By: #### 1 2071400 ####[address] [address] Nitrite Ql (U) Negative Normal Negative [facility] Comment on above: Performed By: #### 1 2473326 ####[address] [address] pH (U) 7.0 [pH] Invalid Interpretation Code 5.0-9.0 [facility] Comment on above: Performed By: #### 1 0759505 ####[address] [address] Protein (U) [Mass/Vol] Negative Normal Negative [facility] Comment on above: Performed By: #### 1 9055303 ####[address] [address] Specific gravity (U) [Rel density] <=1.005 Invalid Interpretation Code 1.005-1.030 [facility] Comment on above: Performed By: #### 1 4863147 ####[place] [address] Type of Urine collection method Clean Catch Normal [facility] Comment on above: Performed By: #### 1 9098649 ####[place] [address]4057 Urobilinogen Qn (U) 0.2 {Rola'U}/dL Normal 0.0-1.0 [facility] Comment on above: Performed By: #### 1 2735852 ####[place] [address] WBC Auto Ql (U) Negative Normal Negative [facility] Comment on above: Performed By: #### 1 3800000 ####[place] [address] WBC LM.HPF (Urine sed) [#/Area] 0-5 Normal 0-5 [facility] Comment on above: Performed By: #### 1 1379575 ####[place] [address]4057 URINALYSISOrdered By: Jeanette Castle on 09-19-2022 Bilirubin Ql (U) Negative (09/19/22 1:44 AM) Normal Negative [facility] UA Auto SS Clarity (U) Clear (09/19/22 1:44 AM) Normal Clear [facility] UA Auto SS Color (U) Yellow (09/19/22 1:44 AM) Normal Yellow [facility] UA Auto SS Epithelial cells.squamous LM.HPF (Urine sed) [#/Area] 0-2 /HPF Normal 0-2/HPF [facility] UA Auto SS Glucose Test strip (U) [Mass/Vol] Negative (09/19/22 1:44 AM) Normal Negative [facility] UA Auto SS Hemoglobin Ql (U) Negative (09/19/22 1:44 AM) Normal Negative [facility] UA Auto SS Ketones (U) [Mass/Vol] Negative (09/19/22 1:44 AM) Normal Negative [facility] UA Auto SS [place].plasma/[place] .RBC (Bld) [Mass ratio] 0-3 /HPF Normal 0-3/HPF [facility] UA Auto SS Nitrite Ql (U) Negative (09/19/22 1:44 AM) Normal Negative [facility] UA Auto SS pH (U) 7.0 *NA* (09/19/22 1:44 AM) Invalid Interpretation Code 5.0 - 9.0 [facility] UA Auto SS Protein (U) [Mass/Vol] Negative (09/19/22 1:44 AM) Normal Negative [facility] UA Auto SS Specific gravity (U) [Rel density] <=1.005 *NA* (09/19/22 1:44 AM) Invalid Interpretation Code 1.005 - 1.030 [facility] UA Auto SS UA Spec Desc Clean Catch (09/19/22 1:44 AM) Normal [facility] UA Auto SS Urobilinogen Qn (U) 0.2918412 {Rola'U}/dL Normal 0.0 - 1.0 EU/dL [facility] UA Auto SS WBC Auto Ql (U) Negative (09/19/22 1:44 AM) Normal Negative [facility] UA Auto SS WBC LM.HPF (Urine sed) [#/Area] 0-5 /HPF Normal 0-5/HPF [facility] UA Auto SS Coding Summary.on 09-18-2022 Coding Summary. [facility] Nursing Assessmenton 022 Nursing Assessment [id number]#1.00CD:12 7 [facility] Coding Summary.on 09-15-2022 Coding Summary. [facility] Coding Summary.on 09-14-2022 Coding Summary. [facility] Consent for Treatmenton Consent for Treatment [id number]#1.00CD:12 [facility] Consent for Treatment [id number]#1.00CD:12 [facility] Discharge Instructionson Discharge Instructions [id number]#1.00CD:12 7 Normal [facility] Inpatient Clinical Summaryon 09-14-2022 Inpatient Clinical Summary Normal [facility] Inpatient Patient Summaryon 09-14-2022 Inpatient Patient Summary Normal [facility] Insurance Correspondence Off iceon 09-14-2022 Insurance Correspondence Office [id number]#1.00CD:12 7 Normal [facility] Nursing Assessmenton 022 Nursing Assessment [id number]#1.00CD:1 27 Normal [facility] UA With Cult Reflexon 2021 Bacteria LM Ql (Urine sed) TRACE Normal Trace [facility] Comment on above: Performed By: #### 1 1404398 ####[facility] [address] [place] [address] Bilirubin Ql (U) Negative Normal Negative [facility] Comment on above: Performed By: #### 1 5752219 ####[facility] [address] [place] [address] Clarity (U) CLEAR Normal Clear [facility] Comment on above: Performed By: #### 1 5186605 ####[facility] [address] [place] [address] Color (U) YELLOW Normal Yellow [facility] Comment on above: Performed By: #### 1 8307489 ####[facility] [address] [place] [address] Crystals LM Ql (Urine sed) Present Normal [facility] Comment on above: Performed By: #### 1 9082148 ####[facility] [address] [place] [address] Epithelial cells.squamous LM.HPF (Urine sed) [#/Area] 0-2 Normal 0-2 [facility] Comment on above: Performed By: #### 1 2366809 ####[facility] [address] [place] [address] Glucose Test strip (U) [Mass/Vol] Negative Normal Negative [facility] Comment on above: Performed By: #### 1 2455397 ####[facility] [address] [place] [address] Hemoglobin Ql (U) Negative Normal Negative [facility] Comment on above: Performed By: #### 1 4225839 ####[place] [address] [place] [address] Ketones (U) [Mass/Vol] Negative Normal Negative [facility] Comment on above: Performed By: #### 1 4773014 ####[address] [address] [place].plasma/[place] .RBC (Bld) [Mass ratio] 0-3 Normal 0-3 [facility] Comment on above: Performed By: #### 1 2227692 ####[address] [address] Mucus Ql (Urine sed) TRACE Normal [facility] Comment on above: Performed By: #### 1 9675920 ####[address] [address] Nitrite Ql (U) Negative Normal Negative [facility] Comment on above: Performed By: #### 1 2914287 ####[address] [address] pH (U) 6.0 [pH] Invalid Interpretation Code 5.0-9.0 [facility] Comment on above: Performed By: #### 1 5179795 ####[address] [address] Protein (U) [Mass/Vol] Negative Normal Negative [facility] Comment on above: Performed By: #### 1 5392108 ####[address] [address] Specific gravity (U) [Rel density] <=1.005 Invalid Interpretation Code 1.005-1.030 [facility] Comment on above: Performed By: #### 1 4884730 ####[address] [address] Type of Urine collection method Random Urine Normal [facility] Comment on above: Performed By: #### 1 5447036 ####[facility] [address] [place] [address] Urobilinogen Qn (U) 0.2 {Rola'U}/dL Normal 0.0-1.0 [facility] Comment on above: Performed By: #### 1 5681434 ####[facility] [address] [place] [address] WBC Auto Ql (U) TRACE Abnormal Negative [facility] Comment on above: Performed By: #### 1 2420660 ####[facility] [address] [place] [address] WBC LM.HPF (Urine sed) [#/Area] 0-5 Normal 0-5 [facility] Comment on above: Performed By: #### 1 1075523 ####[facility] [address] [place] [address] URINALYSISOrdered By: An Lassiter on 09-14-2022 Bacteria [...] AM) Normal Negative [facility] UA Auto SS [place].plasma/[place] .RBC (Bld) [Mass ratio] 0-3 /HPF Normal 0-3/HPF [facility] UA Auto SS Mucus Ql (Urine sed) Trace (09/14/22 9:25 AM) Normal [facility] UA Auto SS Nitrite Ql (U) Negative (09/14/22 9:25 AM) Normal Negative [facility] UA Auto SS pH (U) 6.0 *NA* (09/14/22 9:25 AM) Invalid Interpretation Code 5.0 - 9.0 [facility] UA Auto SS Protein (U) [Mass/Vol] Negative (09/14/22 9:25 AM) Normal Negative [facility] UA Auto SS Specific gravity (U) [Rel density] <=1.005 *NA* (09/14/22 9:25 AM) Invalid Interpretation Code 1.005 - 1.030 [facility] UA Auto SS UA Spec Desc Random Urine (09/14/22 9:25 AM) Normal [facility] UA Auto SS Urobilinogen Qn (U) 0.1517406 {Rola'U}/dL Normal 0.0 - 1.0 EU/dL [facility] UA Auto SS WBC Auto Ql (U) Trace *ABN* (09/14/22 9:25 AM) Invalid Interpretation Code Negative [facility] UA Auto SS WBC LM.HPF (Urine sed) [#/Area] 0-5 /HPF Normal 0-5/HPF [facility] UA Auto SS Coding Summary.on 09-12-2022 Coding Summary. Normal [facility] Consent for Treatmenton 08-16 Consent for Treatment [id number]#1.00CD:12 7 Normal [facility] Discharge Instructionson Discharge Instructions [id number]#1.00CD:12 7 Normal [facility] Discharge Instructions [id number]#1.00CD:1 27 Normal [facility] Inpatient Clinical Summaryon 09-12-2022 Inpatient Clinical Summary Normal [facility] Inpatient Patient Summaryon 09-12-2022 Inpatient Patient Summary Normal [facility] Insurance Correspondenceon 11-12-2021 Insurance Correspondence [id number]#1.00CD:12 7 Normal [facility] Insurance Correspondence Off iceon 09-12-2022 Insurance Correspondence Office [id number]#1.00CD:1 27 Normal [facility] Nursing Assessmenton 022 Nursing Assessment [id number]#1.00CD:1 27 Normal [facility] UA With Cult Reflexon 2021 Bilirubin Ql (U) Negative Normal Negative [facility] Comment on above: Performed By: #### 1 [id number] ####[facility] [address] [place] [address] Clarity (U) CLEAR Normal Clear [facility] Comment on above: Performed By: #### 1 2000849 ####[facility] [address] [place] [address] Color (U) YELLOW Normal Yellow [facility] Comment on above: Performed By: #### 1 2318068 ####[facility] [address] [place] [address] Crystals LM Ql (Urine sed) Present Normal [facility] Comment on above: Performed By: #### 1 7934997 ####[facility] [address] [place] [address] Epithelial cells.squamous LM.HPF (Urine sed) [#/Area] 3-4 Normal 0-2 [facility] Comment on above: Performed By: #### 1 2470202 ####[facility] [address] [place] [address] Glucose Test strip (U) [Mass/Vol] Negative Normal Negative [facility] Comment on above: Performed By: #### 1 5435837 ####[facility] [address] [place] [address] Hemoglobin Ql (U) Negative Normal Negative [facility] Comment on above: Performed By: #### 1 4900905 ####[facility] [address] [place] [address] Ketones (U) [Mass/Vol] Negative Normal Negative [facility] Comment on above: Performed By: #### 1 0804282 ####[place] [address] [place] [address] [place].plasma/[place] .RBC (Bld) [Mass ratio] 0-3 Normal 0-3 [facility] Comment on above: Performed By: #### 1 6636949 ####[address] [address] Nitrite Ql (U) Negative Normal Negative [facility] Comment on above: Performed By: #### 1 6893847 ####[address] [address] pH (U) 6.0 [pH] Invalid Interpretation Code 5.0-9.0 [facility] Comment on above: Performed By: #### 1 8020394 ####[address] [address] Protein (U) [Mass/Vol] Negative Normal Negative [facility] Comment on above: Performed By: #### 1 6838228 ####[address] [address] Specific gravity (U) [Rel density] 1.010 Invalid Interpretation Code 1.005-1.030 [facility] Comment on above: Performed By: #### 1 3530176 ####[address] [address] Type of Urine collection method Clean Catch Normal [facility] Comment on above: Performed By: #### 1 6215001 ####[address] [address] Urobilinogen Qn (U) 0.2 {Rola'U}/dL Normal 0.0-1.0 [facility] Comment on above: Performed By: #### 1 0793367 ####[address] [address] WBC Auto Ql (U) Negative Normal Negative [facility] Comment on above: Performed By: #### 1 9883937 ####[facility] [address] [place] [address] WBC LM.HPF (Urine sed) [#/Area] 0-5 Normal 0-5 [facility] Comment on above: Performed By: #### 1 5892176 ####[facility] [address] [place] [address] URINALYSISOrdered By: Jose Miguel nelson on 09-12-2022 [...] PM) Normal Negative [facility] UA Auto SS [place].plasma/[place] .RBC (Bld) [Mass ratio] 0-3 /HPF Normal [...] [facility] UA Auto SS Urobilinogen Qn (U) 0.9384542 {Rola'U}/dL Normal 0.0 - 1.0 EU/dL [facility] UA Auto SS WBC Auto Ql (U) Negative (09/12/22 8:15 PM) Normal Negative [facility] UA Auto SS WBC LM.HPF (Urine sed) [#/Area] 0-5 /HPF Normal 0-5/HPF [facility] UA Auto SS Coding Summary.on 09-11-2022 Coding Summary. Normal [facility] Consent for Treatmenton 08-16 Consent for Treatment [id number]#1.00CD:12 7 Normal [facility] Discharge Instructionson Discharge Instructions [id number]#1.00CD:1 27 Normal [facility] Inpatient Clinical Summaryon 09-08-2022 Inpatient Clinical Summary Normal [facility] Inpatient Patient Summaryon 09-08-2022 Inpatient Patient Summary Normal [facility] Coding Summary.on 09-06-2022 Coding Summary. Normal [facility] Discharge Instructionson Discharge Instructions [id number]#1.00CD:1 27 Normal [facility] ED Clinical Summaryon 2021 ED Clinical Summary Normal [facility] ED Note-Nursingon 09-06-2022 ED Note-Nursing pt given d/c instruc tions and educated on importance of follow up. pt educated on new medications. pt verbalized understanding of instructions and readiness for d/c. pt walked self ambulatory to waiting room in stable condition Normal [facility] ED Patient Education Noteon 09-06-2022 ED Patient Education Note Normal [facility] ED Patient Summaryon 022 ED Patient Summary Normal [facility] XR Chest Single Viewon 09-06 XR Chest Single View Normal [facility] [place] Auto Diffon 09-05-2022 Basophils/100 WBC (Bld) 1.0 % Normal 0.0-2.0 [facility] Comment on above: Order Comment: Order Added by Discern Expert. Performed By: #### 2 752681, 94674658, 46712923, 2031387, 69988670, 47224876, 7841386 ####[place] [address] [place] [address] Basophils/Leukocytes Auto (Bld) [Pure # fraction] 0.1 E9/L Normal 0.0-0.2 [facility] Comment on above: Order Comment: Order Added by Discern Expert. Performed By: #### 2 534190, 18540733, 20292726, 2641350, 70114167, 51628688, 5734398 ####[place] [address] [place] [address] Eosinophils/100 WBC (Bld) 1.4 % Normal 0.0-8.0 [facility] Comment on above: Order Comment: Order Added by Discern Expert. Performed By: #### 2 823389, 07762020, 45900955, 0068694, 24973867, 03107130, 3039761 ####[address] [address] Eosinophils/Leukocytes Auto (Bld) [Pure # fraction] 0.2 E9/L Normal 0.0-0.5 [facility] Comment on above: Order Comment: Order Added by Discern Expert. Performed By: #### 2 496911, 01107341, 64905665, 4759900, 49556701, 07208698, 3991251 ####[address] [address] Lymphocytes/100 WBC (Bld) 18.8 % Normal 14.0-50.0 [facility] Comment on above: Order Comment: Order Added by Discern Expert. Performed By: #### 2 681057, 87633842, 82325806, 6265970, 69157159, 03745390, 3571372 ####[place] [address] [place] [address] Lymphocytes/Leukocytes Auto (Bld) [Pure # fraction] 2.0 E9/L Normal 1.0-4.0 [facility] Comment on above: Order Comment: Order Added by Discern Expert. Performed By: #### 2 565213, 26850902, 03172958, 4615994, 85882700, 28645870, 0125693 ####[facility] [address] [place] [address] Monocytes/100 WBC (Bld) 6.8 % Normal 4.0-14.0 [facility] Comment on above: Order Comment: Order Added by Discern Expert. Performed By: #### 2 346214, 08761076, 37537670, 1524898, 09269053, 46811194, 2923486 ####[facility] [address] [place] [address] Monocytes/Leukocytes Auto (Bld) [Pure # fraction] 0.7 E9/L Normal 0.2-1.0 [facility] Comment on above: Order Comment: Order Added by Gisselle Expert. Performed By: #### 2 184623, 39902016, 59560939, 5828984, 96835054, 87973067, 3377721 ####[facility] [address] [place] [address] Neutrophils/100 WBC (Bld) 72.0 % Normal 36.0-75.0 [facility] Comment on above: Order Comment: Order Added by Gisselle Expert. Performed By: #### 2 437209, 99419203, 77768190, 5074534, 20819108, 27532519, 4088922 ####[facility] [address] [place] [address] Neutrophils/Leukocytes Auto (Bld) [Pure # fraction] 7.8 E9/L High 2.0-7.5 [facility] Comment on above: Order Comment: Order Added by Gisselle Expert. Performed By: #### 2 078565, 98588745, 33291576, 3284977, 41892793, 01580510, 9305581 ####[facility] [address] [place] [address] BMPon 11-22-2022 Creatinine [Mass/Vol] 0.7 mg/dL Normal 0.5-1.3 [facility] Comment on above: Performed By: #### 2 743643, 30080524, 07835769, 6533853, 86194012, 82330020, 2575326 ####[facility] [address] [place] [address] Urea nitrogen [Mass/Vol] 7 mg/dL Normal 5-21 [facility] Comment on above: Performed By: #### 2 461384, 39022619, 54653009, 8080901, 19674661, 97203433, 1542643 ####[facility] [address] [place] [address] Urea nitrogen/Creatinine [Mass ratio] 10 No Units Normal 10-20 [facility] Comment on above: Performed By: #### 2 738892, 28437550, 68978789, 1251027, 61125195, 55857046, 2739349 ####[facility] [address] [place] [address] Anion gap [Moles/Vol] 10 mmol/L Normal 6-16 [facility] Comment on above: Performed By: #### 2 654564, 64241263, 72214450, 0232806, 64923107, 53476287, 3525817 ####[facility] [address] [place] [address] Calcium [Mass/Vol] 8.8 mg/dL Low 8.9-11.1 [facility] Comment on above: Performed By: #### 2 957543, 82901393, 00035573, 3634093, 06493694, 41994618, 8028936 ####[facility] [address] [place] [address] Chloride [Moles/Vol] 102 mmol/L Normal 101-111 [facility] Comment on above: Performed By: #### 2 272042, 76526494, 20100195, 2303332, 08749030, 99212582, 4280843 ####[facility] [address] [place] [address] CO2 [Moles/Vol] 22 mmol/L Normal 21-31 [facility] Comment on above: Performed By: #### 2 342137, 40934555, 91122126, 3462489, 82209590, 50807878, 5821407 ####[facility] [address] [place] [address] Glucose [Mass/Vol] 87 mg/dL Normal 55-199 [facility] Comment on above: Result Comment: If t his glucose result represents a fasting glucose, interpretation should refer to the following reference range: 55-99 mg/dL Performed By: #### 2 049473, 79396691, 24118291, 9259602, 96785092, 79357562, 0859804 ####[facility] [address] [place] [address] Potassium [Moles/Vol] 3.3 mmol/L Low 3.5-5.3 [facility] Comment on above: Performed By: #### 2 235393, 47331404, 85522296, 5251462, 53263105, 74767656, 1474726 ####[facility] [address] [place] [address] Sodium [Moles/Vol] 131 mmol/L Low 135-145 [facility] Comment on above: Performed By: #### 2 509606, 79706950, 01779877, 8667321, 29499966, 11965361, 3525300 ####[facility] [address] [place] [address] BNPon 09-05-2022 Int Ctr BNP Pass Normal [facility] Comment on above: Performed By: #### 2 545385, 92869195, 51290553, 0683458, 17279626, 87077361, 8467907 ####[facility] [address] [place] [address] Natriuretic peptide B (Bld) [Mass/Vol] 8 pg/mL Normal 5-80 [facility] Comment on above: Performed By: #### 2 867801, 61101049, 67838951, 7651509, 72405922, 88497798, 1665679 ####[facility] [address] [place] [address] CBC w/ Auto Diffon Erythrocyte distribution width (RBC) [Ratio] 12.7 % Normal 10.9-14.2 [facility] Comment on above: Performed By: #### 2 161851, 32977111, 48458761, 0119616, 34575861, 41170877, 4117212 ####[address] [place] [address] Hematocrit (Bld) [Volume fraction] 34.2 % Normal 34.0-46.0 [facility] Comment on above: Performed By: #### 2 253963, 41934813, 69615133, 4685128, 81156636, 14234056, 1369138 ####[address] [place] [address] Hemoglobin (Bld) [Mass/Vol] 12.3 g/dL Normal 12.0-16.0 [facility] Comment on above: Performed By: #### 2 830913, 72602253, 52155915, 6063300, 02870427, 62533542, 7282770 ####[address] [place] [address] MCH (RBC) [Entitic mass] 31.8 pg Normal 27.0-34.0 [facility] Comment on above: Performed By: #### 2 015492, 64104707, 45996549, 2166190, 88241746, 16760674, 0399960 ####[address] [place] [address] MCHC (RBC) [Mass/Vol] 35.9 g/dL Normal 31.4-36.0 [facility] Comment on above: Performed By: #### 2 543799, 07641939, 27492116, 6726656, 87801564, 21776597, 1665970 ####[address] [place] [address] MCV (RBC) [Entitic vol] 88.7 fL Normal 80.0-100.0 [facility] Comment on above: Performed By: #### 2 984034, 97330492, 49531049, 3332107, 30229668, 74092429, 0639837 ####[address] [address] Platelet mean volume (Bld) [Entitic vol] 9.8 fL Normal 6.4-10.8 [facility] Comment on above: Performed By: #### 2 330909, 66931777, 64066827, 1524323, 60912316, 57305967, 7643869 ####[address] [address] Platelets (Bld) [#/Vol] 215.0 E9/L Normal 150.0-500.0 [facility] Comment on above: Performed By: #### 2 453298, 13650699, 98238452, 1084605, 21519382, 09929290, 1280049 ####[address] [address] RBC (Bld) [#/Vol] 3.9 E12/L Low 4.3-5.9 [facility] Comment on above: Performed By: #### 2 341393, 15970008, 71447039, 4261726, 05358646, 99702579, 9785934 ####[address] [address] WBC corrected for nucl RBC Auto (Bld) [#/Vol] 10.9 E9/L Normal 4.0-11.0 [facility] Comment on above: Result Comment: Slid e reviewed by ts. Performed By: #### 2 035089, 58461231, 00515538, 9568958, 95689240, 12605171, 9495865 ####[facility] [address] [place] [address] CHEMISTRYOrdered By: SYSTEM SYSTEM on 09-05-2022 Anion [...] rate/Area] mL/min/1.73 m2 Normal >=59mL/min/ 1.73 m2 [facility] Chem S GFR/1.73 sq M.predicted among non-blacks MDRD (S/P/Bld) [Vol rate/Area] mL/min/1.73 m2 Normal >=59mL/min/ 1.73 m2 [facility] Chem S Glucose [Mass/Vol] 87 mg/dL Normal 55 - 199 mg/dL [facility] Potassium [Moles/Vol] 3.3 mmol/L Low 3.5 - 5.3 mmol/L [facility] Sodium [Moles/Vol] 131 mmol/L Low 135 - 145 mmol/L [facility] Remisol Troponin I.cardiac [Mass/Vol] 4.70 pg/mL Low 10.10 - 27.10 pg/mL [facility] Remisol Urea nitrogen [Mass/Vol] 7 mg/dL Normal 5 - 21 mg/dL [facility] Remisol Urea nitrogen/Creatinine [Mass ratio] 10 mg/mg Normal 10 - 20 [facility] CHEMISTRYOrdered By: Temi hayden on 09-05-2022 Natriuretic peptide B (Bld) [Mass/Vol] 8 pg/mL Normal 5 - 80 pg/mL [facility] HemeManSS COAGULATIONOrdered By: Yamile Li on 09-05-2022 aPTT Coag (PPP) [Time] 27.1 s Normal 25.1 - 36.5 second(s) [facility] Auto Coag INR Coag (PPP) [Relative time] 0.9 {INR} Invalid Interpretation Code [facility] Auto Coag PT Coag (PPP) [Time] 10.3 s Normal 9.4 - 1 2.5 second(s) [facility] Auto Coag Consent for Treatmenton 08-16 Consent for Treatment [id number]#1.00CD:12 7 Normal [facility] ED Note-Nursingon 09-05-2022 ED Note-Nursing Normal [facility] ED Note-Physicianon 09-05-20 ED Note-Physician Normal [facility] Comment on above: Result Comment: Elec tronically Signed By: Gopi Rodriguez DO\Patriciabr\Date and Time Signed: 09/05/22 21:46 EST Group B Strep by PCRon 09-05 Group B Strep colonization by PCR Negative Normal Negative [facility] Comment on above: Performed By: #### 4 [id number] ####[facility] [address] [place] [address] HEMATOLOGYOrdered By: SYSTEM SYSTEM on 09-05-2022 Basophils/100 [...] POS Ctl Pass (09/05/22 8:22 PM) Normal [facility] Man Sero SARS-CoV+SARS-CoV-2 (COVID-19) Ag IA.rapid Ql (Resp) Detected 2 *ABN* (09/05/22 8:22 PM) Invalid Interpretation Code Not Detected [facility] Man Sero Comment on above: Result Comment: Resu lts Called To Berna Cook RN/ER By AGNIESZKA And Read Back For Confirmation On 09/05/2022 21:14:20 EST Results Verified By Repeat Analysis PT & PTTon 09-05-2022 aPTT Coag (PPP) [Time] 27.1 second(s) Normal 25.1-36.5 [facility] Comment on above: Result [...] the same coagulation reagent and instrumentation as [facility]. Currently there are no coagulation studies available worldwide for children to 14 days, and no normal ranges. Heparin therapeutic range (represented by Anti-Factor Xa activity of 0.2 - 0.4 U/mL) corresponds to PTT of 56.6 - 109.0 sec. Performed By: #### 2 415950, 44640626, 39370913, 5970644, 81828547, 42101499, 4702412 ####[facility] [address] [place] [address] INR Coag (PPP) [Relative time] 0.9 {INR} Invalid Interpretation Code [facility] Comment on above: Result Comment: INR results are specifically intended to assess patients stabilized on long-term Anticoagulation therapy suggested INR?s ?Less Intensive Anticoagulation? 2.0 ? 3.0Conventional Range 3.0 ? 4.5 Performed By: #### 2 279375, 27169650, 39025991, 4606164, 76106956, 96005461, 1999767 ####[facility] [address] [place] [address] PT Coag (PPP) [Time] 10.3 second(s) Normal 9.4-12.5 [facility] Comment on above: Result [...] the same coagulation reagent and instrumentation as [facility]. Currently there are no coagulation studies available worldwide for children to 14 days, and no normal ranges. Performed By: #### 2 343150, 37885658, 23298980, 1706209, 66219750, 77724759, 6802536 ####[address] [place] [address] Rapid COVID Antigen ([facility])on 09-05-2022 Rapid COV Int NEG Ctl Pass Normal [facility] Comment on above: Performed By: #### 2 [id number] ####[facility] [address] [place] [address] Rapid COV Int POS Ctl Pass Normal [facility] Comment on above: Performed By: #### 2 [id number] ####[address] [place] [address] SARS-CoV+SARS-CoV-2 (COVID-19) Ag IA.rapid Ql (Resp) Detected Abnormal Not Detected [facility] Comment on above: Result Comment: Resu lts Called To Berna Cook RN/ER By AGNIESZKA And Read Back For Confirmation On 09/05/2022 21:14:20 ESTResults Verified By Repeat AnalysisThe SeniorCareitor? System for Rapid Detection of SARS-CoV-2 is [...] or revoked sooner. Performed By: #### 2 [id number] ####[place] [address] ADMITTED TO INTENSIVE CARE UNIT FOR CONDITION OF INTEREST:FIND:PT: NO Normal [facility] Comment on above: Performed By: #### 2 [id number] ####[address] [place] [address] EMPLOYED IN A HEALTHCARE SETTING:FIND:PT: NO Normal [facility] Comment on above: Performed By: #### 2 [id number] ####[place] [address] FIRST TEST FOR CONDITION OF INTEREST:FIND:PT: YES Normal [facility] Comment on above: Performed By: #### 2 [id number] ####[place] [address] HAS SYMPTOMS RELATED TO CONDITION OF INTEREST:FIND:PT: YES Normal [facility] Comment on above: Performed By: #### 2 [id number] ####[place] [address] HOSPITALIZED FOR CONDITION OF INTEREST:FIND:PT: NO Normal [facility] Comment on above: Performed By: #### 2 [id number] ####[place] [address] STATUS:FIND:PT: NO Normal [facility] Comment on above: Performed By: #### 2 [id number] ####[place] [address] RESIDES IN A [facility] SETTING:FIND:PT: NO Normal [facility] Comment on above: Performed By: #### 2 [id number] ####[place] [id number] Troponin 0 Hr.on 09-05-2022 Troponin I.cardiac [Mass/Vol] 4.70 pg/mL Low 10.10-27.10 [facility] Comment on above: Result Comment: The 95% CI (Confidence Interval) PPV (Positive Predictive Value) for myocardial infarction in females is 38 pg/mL, in males 51 pg/mL. The results should be used in conjunction with clinical conditions of myocardial infarction.(Access High Sensitivity Troponin I Instructions For Use, Ziggy Monkton, May 2018) Performed By: #### 2 172148, 56919558, 13303137, 2723744, 42270195, 44905635, 1852590 ####[facility] [address] [place] [address] eGFRon 09-05-2022 GFR/1.73 sq M.predicted among blacks MDRD (S/P/Bld) [Vol rate/Area] mL/min/{1.73_m2} Normal >=59 [facility] Comment on above: Order Comment: Order added by Discern Expert. Result Comment: eGFR is race adjusted. AA=. Performed By: #### 2 741780, 49960404, 42133974, 4081005, 38996297, 00650653, 3492253 ####[facility] [address] [place] [address] GFR/1.73 sq M.predicted among non-blacks MDRD (S/P/Bld) [Vol rate/Area] mL/min/{1.73_m2} Normal >=59 [facility] Comment on above: Order Comment: Order added by Discern Expert. Result Comment: Cartridge Gauger lucy kidney disease could be indicated at eGFR's of less than 60 mL/min/1.73m2. Kidney failure is indicated at less than 15 mL/min/1.73m2. Performed By: #### 2 271112, 05997701, 20425867, 3841565, 04886751, 46836714, 0482333 ####[facility] [address] [place] [address] Coding Summary.on 09-04-2022 Coding Summary. Normal [facility] Nursing Assessmenton 022 Nursing Assessment [id number]#[id number]:1 27 Normal [facility] Physician Orderon 09-04-2022 Physician Order [id number]#1.00CD:1 27 Normal [facility] ABO/Rhon 08-31-2022 ABO/Rh Positive Invalid Interpretation Code [facility] Comment on above: Performed By: #### 1 6118432, 7042418, 13310922, 79958059 ####[facility] [address] [place] [address] ABO/Rh History Checkon 08-31 ABO/Rh History Check Verified Hx Blood Type Normal [facility] Comment on above: Performed By: #### 1 3040763, 9556712, 04472712, 73809909 ####[facility] [address] [place] [address] ABSCon 08-31-2022 ABSC Gel Interp Negative Normal [facility] Comment on above: Performed By: #### 1 1805123, 7445618, 25174611, 89866283 ####[facility] [address] [place] [address] BUNon 08-31-2022 Urea nitrogen [Mass/Vol] 8 mg/dL Normal 5-21 [facility] Comment on above: Performed By: #### 2 578288, 6087521, 62163209, 9239571, 29524179, 8013932, 4073839, 6832505, 2146197, 6614843, 68261347 ####[address] [place] [address] Blood Bank ID#on 08-31-2022 BBID# [id number] Invalid Interpretation Code [facility] Comment on above: Performed By: #### 1 7844700, 6304872, 61682643, 42714063 ####[facility] [address] [place] [address] CBC w/Indiceson 08-31-2022 Erythrocyte distribution width (RBC) [Ratio] 12.9 % Normal 10.9-14.2 [facility] Comment on above: Performed By: #### 2 871669, 9815775, 91126093, 4648680, 67682220, 6894501, 9867915, 5004063, 3178147, 6875354, 62983651 ####[facility] [address] [place] [address] Hematocrit (Bld) [Volume fraction] 35.0 % Normal 34.0-46.0 [facility] Comment on above: Performed By: #### 2 733516, 5492654, 69909103, 0324752, 33509264, 2574159, 3747533, 2247395, 6587656, 6132340, 49949834 ####[facility] [address] [place] [address] Hemoglobin (Bld) [Mass/Vol] 12.0 g/dL Normal 12.0-16.0 [facility] Comment on above: Performed By: #### 2 088882, 8525384, 50100698, 5017817, 03425635, 0680589, 8274657, 7734208, 2268429, 0601965, 69429337 ####[facility] [address] [place] [address] MCH (RBC) [Entitic mass] 30.7 pg Normal 27.0-34.0 [facility] Comment on above: Performed By: #### 2 770897, 9795310, 88385763, 7335814, 73772212, 8505944, 9924006, 9162511, 7377180, 1256670, 96997025 ####[facility] [address] [place] [address] MCHC (RBC) [Mass/Vol] 34.4 g/dL Normal 31.4-36.0 [facility] Comment on above: Performed By: #### 2 127506, 5921455, 42938471, 2154627, 66518623, 6960779, 2253862, 1578806, 6585563, 5481592, 73185353 ####[facility] [address] [place] [address] MCV (RBC) [Entitic vol] 89.5 fL Normal 80.0-100.0 [facility] Comment on above: Performed By: #### 2 175310, 5958571, 33680949, 8188024, 01409201, 4101389, 4019644, 9195491, 0467002, 9082044, 76742511 ####[address] [place] [address] Platelet mean volume (Bld) [Entitic vol] 9.8 fL Normal 6.4-10.8 [facility] Comment on above: Performed By: #### 2 912216, 9652669, 80799401, 7382837, 06878518, 8601010, 2403871, 1434574, 0559177, 5849422, 10823892 ####[facility] [address] [place] [address] Platelets (Bld) [#/Vol] 234.0 E9/L Normal 150.0-500.0 [facility] Comment on above: Performed By: #### 2 166090, 1204170, 52322765, 1572548, 28810400, 3416467, 8293745, 0829008, 3800861, 3193802, 01393930 ####[facility] [address] [place] [address] RBC (Bld) [#/Vol] 3.9 E12/L Low 4.3-5.9 [facility] Comment on above: Performed By: #### 2 191482, 5802475, 21845144, 9346536, 53571394, 7244724, 2181598, 5538953, 0038067, 3965870, 07250435 ####[facility] [address] [place] [address] WBC corrected for nucl RBC Auto (Bld) [#/Vol] 12.6 E9/L High 4.0-11.0 [facility] Comment on above: Performed By: #### 2 241691, 8826142, 29082706, 1598383, 69338023, 0356390, 2694776, 3812504, 6738558, 7686420, 63298064 ####[facility] [address] [place] [address] Creatinineon 08-31-2022 Creatinine [Mass/Vol] 0.7 mg/dL Normal 0.5-1.3 [facility] Comment on above: Performed By: #### 2 617352, 4219573, 74050157, 7154462, 71761552, 3458071, 4314783, 9828123, 7121813, 8131873, 99562053 ####[facility] [address] [place] [address] Discharge Instructionson Discharge Instructions [id number]#[id number]:12 7 Normal [facility] Ethanolon 08-31-2022 Ethanol [Mass/Vol] mg/dL Normal <=7 [facility] Comment on above: Performed By: #### 2 307612 ####[facility] [address] [place] [address] FSPon 08-31-2022 Fibrin+Fibrinogen fragments (S) [Mass/Vol] <10 Normal <10 [facility] Comment on above: Performed By: #### 2 733555, 7474329, 90489854, 1028267, 36539560, 2413832, 3670149, 2994331, 5001144, 2702094, 59324444 ####[address] [place] [address] Stainon 08-31-2022 FMHV 0 mL Invalid Interpretation Code [facility] Comment on above: Performed By: #### 2 553444, 4013351, 14241907, 3173285, 01232689, 1174627, 3785737, 5637807, 9972972, 5186364, 78459645 ####[address] [place] [address] Negative Control Negative Normal [facility] Comment on above: Performed By: #### 2 066635, 8617679, 18245317, 4522072, 98471033, 1823924, 1308985, 1307561, 4706258, 6991869, 22100518 ####[address] [place] [address] Fibrinogenon 08-31-2022 Fibrinogen Coag (PPP) [Mass/Vol] 406 mg/dL High 200-393 [facility] Comment on above: Performed By: #### 2 430608, 9256240, 27261715, 6689963, 20005221, 1400692, 1699651, 3455114, 1950603, 0861246, 00247806 ####[facility] [address] [place] [address] Hep Func Panelon 08-31-2022 Bilirubin.indirect [Mass or moles/Vol] [facility] Abnormal 0.1-0.9 [facility] Comment on above: Result Comment: Resu lt verified by Discern Rule. Performed result [facility] (Unable to Calculate) was sent as an Alpha code due the inability to calculate a valid numeric value. Performed By: #### 2 466038, 3953705, 09063360, 8991208, 27451608, 6760044, 3690430, 4561794, 8089234, 4450128, 85693082 ####[facility] [address] [place] [address] Albumin [Mass/Vol] 2.8 g/dL Low 3.3-5.0 [facility] Comment on above: Performed By: #### 2 553424, 6051600, 71010915, 4485724, 96143588, 2007146, 4119500, 5832666, 3776608, 5094052, 49329911 ####[facility] [address] [place] [address] Albumin/Globulin (S) [Mass conc ratio] 0.7 Low 1.1-2.2 [facility] Comment on above: Performed By: #### 2 254627, 0969589, 95157360, 4179167, 91092418, 7081824, 4405028, 6165274, 1857706, 1438115, 57999563 ####[facility] [address] [place] [address] ALP [Catalytic activity/Vol] 80 Int._Unit/L Normal 21-98 [facility] Comment on above: Performed By: #### 2 534348, 4122317, 86240016, 7780376, 33915353, 4829666, 1861959, 6095677, 2903252, 7522731, 74035376 ####[facility] [address] [place] [address] ALT No additional P-5'-P [Catalytic activity/Vol] 10 Int._Unit/L Normal 6-46 [facility] Comment on above: Performed By: #### 2 082862, 7130461, 53937791, 8507503, 22890947, 0984669, 1398398, 8915427, 0183454, 3636367, 82534795 ####[facility] [address] [place] [address] AST [Catalytic activity/Vol] 16 Int._Unit/L Normal 5-43 [facility] Comment on above: Performed By: #### 2 422864, 2926507, 35074135, 0776063, 38413354, 9140874, 5490892, 5584289, 6960402, 8850675, 58762207 ####[address] [address] Bilirubin [Mass/Vol] 0.1 mg/dL Normal 0.0-1.1 [facility] Comment on above: Performed By: #### 2 125536, 5232277, 01230771, 1341344, 95738056, 6175468, 8850252, 9941845, 4480793, 7525062, 55906178 ####[address] [address] Bilirubin.direct [Mass/Vol] mg/dL Normal 0.1-0.4 [facility] Comment on above: Performed By: #### 2 662441, 7190335, 89164726, 8508992, 58383694, 6340092, 2217941, 0984990, 0571256, 5869904, 02361351 ####[address] [place] [address] Globulin (S) [Mass/Vol] 3.8 g/dL Normal 1.4-4.0 [facility] Comment on above: Performed By: #### 2 540510, 9699674, 60719680, 0371866, 57110011, 1889976, 2233586, 6664914, 4812424, 8495271, 43255547 ####[facility] [address] [place] [address] Protein [Mass/Vol] 6.6 g/dL Normal 6.0-7.8 [facility] Comment on above: Performed By: #### 2 403261, 5739927, 90081171, 0592634, 72492462, 0992151, 1923026, 0608198, 3286157, 1472471, 77191477 ####[facility] [address] [place] [address] Inpatient Clinical Summaryon 08-31-2022 Inpatient Clinical Summary Normal [facility] Inpatient Patient Summaryon 08-31-2022 Inpatient Patient Summary Normal [facility] Lyteson 08-31-2022 Anion gap [Moles/Vol] 13 mmol/L Normal 6-16 [facility] Comment on above: Performed By: #### 2 259798, 9849147, 04305062, 4344979, 73932899, 7504316, 2554879, 7743788, 4074541, 5383390, 56248339 ####[facility] [address] [place] [address] Chloride [Moles/Vol] 104 mmol/L Normal 101-111 [facility] Comment on above: Performed By: #### 2 185877, 6584514, 72227107, 7158786, 79366667, 4623604, 2792246, 3947098, 6099418, 7969589, 68669955 ####[facility] [address] [place] [address] CO2 [Moles/Vol] 22 mmol/L Normal 21-31 [facility] Comment on above: Performed By: #### 2 107184, 7694357, 48104279, 4884014, 90839687, 5716721, 6684247, 1077617, 6316122, 7469564, 55506973 ####[facility] [address] [place] [address] Potassium [Moles/Vol] 3.5 mmol/L Normal 3.5-5.3 [facility] Comment on above: Performed By: #### 2 452394, 3124669, 24068812, 2085489, 01509127, 3227527, 9101064, 9147988, 5006284, 7522852, 96568047 ####[facility] [address] [place] [address] Sodium [Moles/Vol] 135 mmol/L Normal 135-145 [facility] Comment on above: Performed By: #### 2 472588, 7138862, 72293056, 7177301, 31011004, 6863384, 8694091, 5121458, 4019957, 2269543, 47934436 ####[facility] [address] [place] [address] Nursing Assessmenton 022 Nursing Assessment [id number]#[id number]:12 7 Normal [facility] PT & PTTon 08-31-2022 aPTT Coag (PPP) [Time] 26.3 second(s) Normal 25.1-36.5 [facility] Comment on above: Result [...] the same coagulation reagent and instrumentation as [facility]. Currently there are no coagulation studies available worldwide for children to 14 days, and no normal ranges. Heparin therapeutic range (represented by Anti-Factor Xa activity of 0.2 - 0.4 U/mL) corresponds to PTT of 56.6 - 109.0 sec. Performed By: #### 2 759463, 4166206, 44932668, 4413509, 33896306, 6446410, 8270630, 4391622, 7247045, 2185106, 83248439 ####[facility] [address] [place] [address] INR Coag (PPP) [Relative time] 0.9 {INR} Invalid Interpretation Code [facility] [facility] Comment on above: Result Comment: INR results are specifically intended to assess patients stabilized on long-term Anticoagulation therapy suggested INR?s ?Less Intensive Anticoagulation? 2.0 ? 3.0Conventional Range 3.0 ? 4.5 Performed By: #### 2 365256, 6073266, 15902227, 2994572, 44000751, 2256881, 2540916, 5241752, 3425145, 2654752, 66910648 ####[facility] [address] [place] [address] PT Coag (PPP) [Time] 10.2 second(s) Normal 9.4-12.5 [facility] Comment on above: Result [...] the same coagulation reagent and instrumentation as [facility]. Currently there are no coagulation studies available worldwide for children to 14 days, and no normal ranges. Performed By: #### 2 480823, 8371071, 66815287, 9884325, 15253228, 5526463, 4176526, 9122524, 4599372, 1908007, 47691612 ####[facility] [address] [place] [address] U Drug Screenon 08-31-2022 Amphetamines Screen method >1000 ng/mL Ql (U) Negative Normal Negative [facility] Comment on above: Result Comment: Nega tive Cutoff: <1000 ng/mL Performed By: #### 2 688892, 66050212 ####[facility] [address] [place] [address] Barbiturates Screen Ql (U) Negative Normal Negative [facility] Comment on above: Result Comment: Nega tive Cutoff: <200 ng/mL Performed By: #### 2 312643, [id number] ####[facility] [address] [facility] [place] [address] Benzodiazepines Ql (U) Negative Normal Negative [facility] Comment on above: Result Comment: Nega tive Cutoff: <200 ng/mL Performed By: #### 2 866942, 55040227 ####[facility] [address] [facility] [place] [address] Cocaine Ql (U) Negative Normal Negative [facility] Comment on above: Result Comment: Nega tive Cutoff: <300 ng/mL Performed By: #### 2 372362, 79050135 ####[facility] [address] [facility] [place] [address] Opiates Screen Ql (U) Negative Normal Negative Fis [facility] Comment on above: Result Comment: Nega tive Cutoff: <300 ng/mL Performed By: #### 2 239933, 23174538 ####[facility] [address] [place] [address] Phencyclidine Screen method >25 ng/mL Ql (U) Negative Normal Negative [facility] Comment on above: Result Comment: Nega tive Cutoff: <25 ng/mLThese drug screen results are to be used for medical (i.e., treatment) purposes only. Unconfirmed drug screening results must not be used for non-medical purposes (e.g., employment testing, legal testing). Performed By: #### 2 618306, 66058114 ####[facility] [address] [place] [address] Tetrahydrocannabinol Screen method >50 ng/mL Ql (U) Negative Normal Negative [facility] Comment on above: Result Comment: Nega tive Cutoff: <50 ng/mL Performed By: #### 2 986533, 58107748 ####[facility] [address] [place] [address] UA With Cult Reflexon 2021 Bacteria LM Ql (Urine sed) TRACE Normal Trace [facility] Comment on above: Performed By: #### 2 474976, 48595370 ####[facility] [address] [place] [address] Bilirubin Ql (U) Negative Normal Negative [facility] Comment on above: Performed By: #### 2 817945, 10119436 ####[address] [address] Clarity (U) CLEAR Normal Clear [facility] Comment on above: Performed By: #### 2 235016, 60682532 ####[facility] [address] [place] [address] Color (U) YELLOW Normal Yellow [facility] Comment on above: Performed By: #### 2 240095, 07847043 ####[facility] [address] [place] [address] Epithelial cells.squamous LM.HPF (Urine sed) [#/Area] 0-2 Normal 0-2 [facility] Comment on above: Performed By: #### 2 472378, 00294481 ####[facility] [address] [place] [address] Glucose Test strip (U) [Mass/Vol] Negative Normal Negative [facility] Comment on above: Performed By: #### 2 346819, 18383704 ####[facility] [address] [place] [address] Hemoglobin Ql (U) Negative Normal Negative [facility] Comment on above: Performed By: #### 2 125237, 95027428 ####[facility] [address] [place] [address] Ketones (U) [Mass/Vol] Negative Normal Negative [facility] Comment on above: Performed By: #### 2 483652, 19058724 ####[facility] [address] [place] [address] [place].plasma/[place] .RBC (Bld) [Mass ratio] 0-3 Normal 0-3 [facility] Comment on above: Performed By: #### 2 830320, 20426153 ####[facility] [address] [place] [address] Nitrite Ql (U) Negative Normal Negative [facility] Comment on above: Performed By: #### 2 140521, 52633770 ####[address] [address] pH (U) 6.0 [pH] Invalid Interpretation Code 5.0-9.0 [facility] Comment on above: Performed By: #### 2 201721, 30301575 ####[facility] [address] [place] [address] Protein (U) [Mass/Vol] Negative Normal Negative [facility] Comment on above: Performed By: #### 2 232055, 56333740 ####[facility] [address] [place] [address] Specific gravity (U) [Rel density] 1.010 Invalid Interpretation Code 1.005-1.030 [facility] Comment on above: Performed By: #### 2 585444, 53089309 ####[facility] [address] [place] [address] Type of Urine collection method Clean Catch Normal [facility] Comment on above: Performed By: #### 2 671437, 17647066 ####[facility] [address] [place] [address] Urobilinogen Qn (U) 0.2 {Rola'U}/dL Normal 0.0-1.0 [facility] Comment on above: Performed By: #### 2 817120, 82877947 ####[facility] [address] [place] [address] WBC Auto Ql (U) Negative Normal Negative [facility] Comment on above: Performed By: #### 2 455463, 76550991 ####[facility] [address] [place] [address] WBC LM.HPF (Urine sed) [#/Area] 0-5 Normal 0-5 [facility] Comment on above: Performed By: #### 2 573410, 63610833 ####[facility] [address] [place] [address] Uric Acidon 08-31-2022 Urate [Mass/Vol] 5.0 mg/dL Normal 2.2-7.4 [facility] Comment on above: Performed By: #### 2 222873, 9952284, 83723464, 0820876, 13875508, 8978687, 9362411, 3744928, 8265170, 3455269, 38349144 ####[facility] [address] [place] [address] eGFRon 08-31-2022 GFR/1.73 sq M.predicted among blacks MDRD (S/P/Bld) [Vol rate/Area] mL/min/{1.73_m2} Normal >=59 [facility] Comment on above: Order Comment: Order added by Discern Expert. Result Comment: eGFR is race adjusted. AA=. Performed By: #### 2 474996, 5761649, 72225234, 0652259, 76514618, 2059004, 1570326, 9647782, 8692664, 7077062, 67107189 ####[facility] [address] [place] [address] GFR/1.73 sq M.predicted among non-blacks MDRD (S/P/Bld) [Vol rate/Area] mL/min/{1.73_m2} Normal >=59 [facility] Comment on above: Order Comment: Order added by Discern Expert. Result Comment: Cartridge Gauger lucy kidney disease could be indicated at eGFR's of less than 60 mL/min/1.73m2. Kidney failure is indicated at less than 15 mL/min/1.73m2. Performed By: #### 2 291861, 4892081, 86769620, 2286774, 80789673, 7072738, 8066453, 2529708, 9648089, 2242290, 61709703 ####[facility] [address] [place] [address] BLOOD BANKOrdered By: Naldo Li on 08-30-2022 ABO/Rh Interp Positive Invalid Interpretation Code [facility] BB Subsection ABSC Gel Interp Negative (08/30/22 11:51 PM) Normal [facility] BB Subsection FMHV 0 mL Invalid Interpretation Code [facility] Man Sero CHEMISTRYOrdered By: SYSTEM SYSTEM on [...] Consent for Treatmenton 08-15 Consent for Treatment [id number] Normal [facility] HEMATOLOGYOrdered By: Naldo Li on [...] PM) Normal Negative [facility] UA Auto SS [place].plasma/[place] .RBC (Bld) [Mass ratio] 0-3 /HPF Normal [...] [facility] UA Auto SS Urobilinogen Qn (U) 0.6524154 {Rola'U}/dL Normal 0.0 - 1.0 EU/dL [facility] UA Auto SS WBC Auto Ql (U) Negative (08/30/22 9:45 PM) Normal Negative [facility] UA Auto SS WBC LM.HPF (Urine sed) [#/Area] 0-5 /HPF Normal 0-5/HPF [facility] UA Auto SS Coding Summary.on 08-28-2022 Coding Summary. Normal [facility] BLOOD BANKOrdered By: Janet Reyes on 08-22-2022 ABO/Rh Interp Positive Invalid Interpretation Code [facility] BB Subsection ABSC Gel Interp Negative (08/22/22 4:03 PM) Normal [facility] BB Subsection FMHV 0 mL Invalid Interpretation Code [facility] Man Sero CHEMISTRYOrdered By: SYSTEM SYSTEM on [...] PM) Normal Negative [facility] UA Auto SS [place].plasma/[place] .RBC (Bld) [Mass ratio] 0-3 /HPF Normal [...] [facility] UA Auto SS Urobilinogen Qn (U) 0.3898589 {Rola'U}/dL Normal 0.0 - 1.0 EU/dL [facility] [...] AM) Normal Negative [facility] UA Auto SS [place].plasma/[place] .RBC (Bld) [Mass ratio] 0-3 /HPF Normal [...] [facility] UA Auto SS Urobilinogen Qn (U) 0.7091946 {Rola'U}/dL Normal 0.0 - 1.0 EU/dL [facility] UA Auto SS WBC Auto Ql (U) 2+ *ABN* (08/18/22 4:08 AM) Invalid Interpretation Code Negative [facility] UA Auto SS WBC LM.HPF (Urine sed) [#/Area] 6-15 /HPF Invalid Interpretation Code 0-5/HPF [facility] UA Auto SS BLOOD BANKOrdered By: Tom Avelar on 08-13-2022 ABO/Rh Interp Positive Invalid Interpretation Code [facility] BB Subsection ABSC Gel Interp Negative (08/13/22 6:26 PM) Normal [facility] BB Subsection FMHV 0 mL Invalid Interpretation Code [facility] Man Sero CHEMISTRYOrdered By: SYSTEM SYSTEM on [...] Interpretation Code Negative [facility] UA Auto SS [place].plasma/[place] .RBC (Bld) [Mass ratio] 0-3 /HPF Normal [...] [facility] UA Auto SS Urobilinogen Qn (U) 0.3931609 {Rola'U}/dL Normal 0.0 - 1.0 EU/dL [facility] [...] AM) Normal Negative [facility] UA Auto SS [place].plasma/[place] .RBC (Bld) [Mass ratio] 0-3 /HPF Normal [...] [facility] UA Auto SS Urobilinogen Qn (U) 0.4972772 {Rola'U}/dL Normal 0.0 - 1.0 EU/dL [facility] [...] AM) Normal Negative [facility] UA Auto SS [place].plasma/[place] .RBC (Bld) [Mass ratio] 0-3 /HPF Normal [...] Desc Clean Catch (07/17/22 9:25 AM) Normal [facility] UA Auto SS Urobilinogen Qn (U) 0.3981663 {Rola'U}/dL Normal 0.0 - 1.0 EU/dL [facility] UA Auto SS WBC Auto Ql (U) Negative (07/17/22 9:25 AM) Normal Negative [facility] UA Auto SS WBC LM.HPF (Urine sed) [#/Area] 0-5 /HPF Normal 0-5/HPF [facility] UA Auto SS CHEMISTRYOrdered By: Simtrol SYSTEM on 06-28-2022 Glucose 1 Hr post 50 g glucose PO [Mass/Vol] 93 mg/dL Normal 55 - 140 mg/dL [facility] Remisol HEMATOLOGYOrdered By: Keila Ring on 06-28-2022 Hematocrit (Bld) [Volume fraction] 35.4 % Normal 34.0 - 46.0 % [facility] HemeAutoSS Hemoglobin (Bld) [Mass/Vol] 12.1 g/dL Normal 12.0 - 16.0 gm/dL [facility] HemeAutoSS BLOOD BANKOrdered By: Jeanette Castle on 06-19-2022 ABO/Rh Interp Positive Invalid Interpretation Code [facility] BB Subsection ABSC Gel Interp Negative (06/19/22 12:15 AM) Normal [facility] BB Subsection FMHV 0 mL Invalid Interpretation Code [facility] Man Sero CHEMISTRYOrdered By: Simtrol SYSTEM on 06-19-2022 Albumin [Mass/Vol] 2.9 g/dL Low 3.3 - 5.0 gm/dL [facility] Remisol Albumin/Globulin [Mass ratio] 0.8 {ratio} Low 1.1 - 2.2 FT Remisol ALP [Catalytic activity/Vol] 44 [iU]/d Normal [...] rate/Area] mL/min/1.73 m2 Normal >=59mL/min/ 1.73 m2 [facility] Chem S Globulin (S) [Mass/Vol] 3.5 g/dL [...] 21 mg/dL [facility] Remisol COAGULATIONOrdered By: Davion on Corrine on 06-19-2022 aPTT Coag (PPP) [Time] 26.9 [...] PM) Normal Negative [facility] UA Auto SS [place].plasma/[place] .RBC (Bld) [Mass ratio] 0-3 /HPF Normal [...] [facility] UA Auto SS Urobilinogen Qn (U) 0.1070790 {Rola'U}/dL Normal 0.0 - 1.0 EU/dL [facility] [...] PM) Normal Negative [facility] UA Auto SS [place].plasma/[place] .RBC (Bld) [Mass ratio] 0-3 /HPF Normal [...] Desc Random Urine (05/01/22 5:20 PM) Normal [facility] UA Auto SS Urobilinogen Qn (U) 1.3221097 {Rola'U}/dL Normal 0.0 - 1.0 EU/dL FT UA Auto SS WBC Auto Ql (U) Negative (05/01/22 5:20 PM) Normal Negative [facility] UA Auto SS WBC LM.HPF (Urine sed) [#/Area] 0-5 /HPF Normal 0-5/HPF [facility] UA Auto SS BLOOD BANKOrdered By: Shayy Medina on 04-02-2022 ABO/Rh Interp Positive Invalid Interpretation Code [facility] BB Subsection ABSC Gel Interp Negative (04/02/22 7:17 AM) Normal [facility] BB Subsection FMHV 0 mL Invalid Interpretation Code [facility] Man Sero CHEMISTRYOrdered By: SYSTEM SYSTEM on [...] 6.5 g/dL Normal 6.0 - 7.8 gm/dL FT Remisol Sodium [Moles/Vol] 136 mmol/L Normal 135 [...] [Mass/Vol] <10 (04/02/22 7:17 AM) Normal <10 [facility] Man Sero Fibrinogen Coag (PPP) [Mass/Vol] 399 [...] AM) Normal Negative [facility] UA Auto SS [place].plasma/[place] .RBC (Bld) [Mass ratio] 0-3 /HPF Normal [...] [facility] UA Auto SS Urobilinogen Qn (U) 0.9689447 {Rola'U}/dL Normal 0.0 - 1.0 EU/dL [facility] [...] PM) Normal Negative [facility] UA Auto SS [place].plasma/[place] .RBC (Bld) [Mass ratio] 0-3 /HPF Normal [...] [facility] UA Auto SS Urobilinogen Qn (U) 0.2070488 {Rola'U}/dL Normal 0.0 - 1.0 EU/dL [facility] [...] 13.1 g/dL Normal 12.0 - 16.0 gm/dL FT HemeAutoSS MCH (RBC) [Entitic mass] 31.5 pg Normal 27.0 - 34.0 pg FT HemeAutoSS MCHC (RBC) [Mass/Vol] 33.8 g/dL Normal 31.4 - 36.0 gm/dL FT HemeAutoSS MCV (RBC) [Entitic vol] 93.4 fL Normal 80.0 - 100.0 fL [facility] HemeAutoSS Platelet mean volume (Bld) [Entitic vol] 8.3 fL Normal 6.4 - 10.8 fL FT HemeAutoSS Platelets (Bld) [#/Vol] 248.0 E9/L Normal 150.0 - 500.0 E9/L FT HemeAutoSS RBC (Bld) [#/Vol] 4.1 E12/L Low 4.3 - 5.9 E12/L FT HemeAutoSS WBC corrected for nucl RBC Auto (Bld) [#/Vol] 6.7 E9/L Normal 4.0 - 11.0 E9/L [facility] HemeAutoSS Reference Laboratory Testing Ordered By: Stephanie Diana on 02-15-2022 Test Code 697698 Invalid Interpretation Code [facility] SendOutsSS Test Name IG PAP CTNG HPV Invalid Interpretation Code [facility] [place] 05-05-2021 CNPN Telephone (GSTCON) ----- SUSAN BRO ([id number]) 1995 F Date Time Provider Department 05/05/21 MARTHA WEBB During your visit today, we recorded the following information about you: Tucker Bales Beef Splitter 05/05/2021 10:37 AM Signed Patient left message [...] your diligent work on this patient Tucker Amairani Beef Splitter 05/24/2021 2:23 PM Signed patient called and left a message today stating she needs to get this figured out she has not eaten in 3 days and cant even drink water now. Patient can be reached at [phone]- please read messages below for refresher Martha Webb MD 05/24/2021 4:30 PM Signed Please advise patient to go to ER for evaluation Tucker Bales Beef Splitter 05/24/2021 4:35 PM Signed Had to leave a message for the patient, left the message to go to ER. Also returned the call to [facility] and spoke to Alejandra that patient needs to go to ER for evalution. Martha Webb MD 05/26/2021 10:21 AM Signed Can you find out if patient went to ER and if so which one so we can get records Tucker Amairani Beef Splitter 05/26/2021 3:28 PM Signed Pt did not [...] bed and continue this dose - rizatriptan (MAXALT-SCALE TANK OPERATOR) 10 mg disintegrating tablet Take 1 tablet by mouth as needed for Migraine Headache (see administration instructions). AT ONSET OF HEADACHE. MAY REPEAT AFTER 2 HOURS. DO NOT EXCEED 30 MG PER DAY. Problem List As Of Date: 05/05/2021 (None) Encounter Status:Closed by TUCKER LARA on 05/06/21 [facility] [place] 04-07-2021 CNPN Telephone (GSTCON) ----- SUSAN BRO ([id number]) 1995 F Date Time Provider Department 04/07/21 MARTHA WEBB During your visit today, we recorded the following information about you: Tucker Bales Beef Splitter 04/07/2021 12:31 PM Signed [facility] called and they need the GES solid orde rplaced even though she has to use ensure, please sign order in this encounter Allergies As of Date: 04/07/2021 Noted Allergy Reaction PENICILLINS 03/10/2021 2 - Rash Date Reviewed: 04/01/2021 Reviewed by: Odette Agosto MD - Fully Assessed Reason for Visit: Orders [681] Visit Diagnosis:Nausea [R11.0] Order(s):NM GASTRIC EMPTYING SOLID [3403525] Order #: [id number] FUTURE Prescriptions as of 04/07/2021 Sig: AMITRIPTYLINE 10 MG TABLET Take 1 tab at bed x 1 week, t* RIZATRIPTAN 10 MG DISINTEGRAT* Take 1 tablet by mouth as nee* Problem List As Of Date: 04/07/2021 (None) Encounter Status:Closed by [facility] ----- SUSAN BRO ([id number]) 1995 F Date Time Provider Department 04/04/21 MARTHA WEBB GSTCON During your visit today, we recorded the following information about you: Tucker Bales Beef Splitter 04/04/2021 1:40 PM Signed Patient called and is still waiting for you to place the order for her GES with ensure, she cant eat the eggs and toast Martha Webb MD 04/04/2021 4:48 PM Signed Let patient know I placed the order Tucker Bales Beef Splitter 04/05/2021 11:41 AM [address] you place [...] Visit Diagnosis:Nausea [R11.0] Order(s):NM GASTRIC EMPTYING LIQUID [[id number]] Order #: [id number] FUTURE Prescriptions as of 04/04/2021 Sig: AMITRIPTYLINE 10 MG TABLET Take 1 tab at bed x 1 week, t* RIZATRIPTAN 10 MG DISINTEGRAT* Take 1 tablet by mouth as nee* Problem List As Of Date: 04/04/2021 (None) Encounter Status:Closed by MARTHA WEBB on 04/05/21 [facility] CNOVon 04-01-2021 CNOV Office Visit (NHMNS2 ) ----- SUSAN BRO ([id number]) 1995 F Date Time Provider Department 04/01/21 8:00 AM BERT NEGRETE NJMNS2 During your visit today, we recorded the following information about you: Pulse Blood pressure Weight Height 72/minute 111/67 70.9 kg 1.626 m Last Period 02/23/21 Rigoberto Zimmer Nc 04/01/2021 7:54 AM Addendum Please start taking [...] at least 3 months. These include all qzko-cvw-ndghxyc medications, triptans, narcotics, and butalbital containing medications [...] There h (more content not included)... Normal [facility] 03-22-2021 CNPN Telephone (GSTCON) ----- SUSAN BRO ([id number]) 1995 F Date Time Provider Department 03/22/21 MARTHA WEBB During your visit today, we recorded the following information about you: Tucker Bales Beef Splitter 03/22/2021 2:28 PM Signed Received: Today Martha Webb MD [facility] [place]; Tucker Bales Beef Splitter Let patient know esophagram was normal Next step is gastric emptying study I placed order for gastric emptying study Tucker Bales Beef Splitter 03/22/2021 2:28 PM Signed Pt is notified, will schedule the GES Allergies As of Date: 03/22/2021 Noted Allergy Reaction PENICILLINS 03/10/2021 2 - Rash Date Reviewed: 03/10/2021 Reviewed by: Martha Webb MD - Fully Assessed Reason for Visit: Results [95] Problem List As Of Date: 03/22/2021 (None) Encounter Status:Closed by TUCKER LARA on 03/22/21 [facility] ESOPHAGRAMon 03-17-2021 XR ESOPHAGRAM * * *Final [...] symptoms. Other Findings: None. IMPRESSION: Normal esophagram. Press Operator Heavy Duty: EDENB Transcribe Date/Time: Mar 17 2021 11:15A Dictated by : CRISTÓBAL SALINAS DO This examination was interpreted and the report reviewed and electronically signed by: CRISTÓBAL SALINAS DO on Mar 17 2021 11:18AM EST [id number] [facility] ([facility]STCON ) ----- SUSAN BRO ([id number]) 1995 F Date Time Provider Department 03/10/21 11:15 AM MARTHA WEBB GSTCON During your visit today, we recorded the following information about you: Pulse Blood pressure Weight Height 69/minute 108/76 73 kg 1.626 m Martha Webb MD 03/10/2021 12:03 PM Signed This note was created using Medical Connectionsriter. Subjective Susan Bro is a 25 year [...] COMMENT: Un (more content not included)... Normal [facility] [place] [facility]10[facility]2021 [facility] SUSAN BRO ([id number]) 1995 F Date Time Provider Department 03/10/21 MARTHA WEBB During your visit today, we recorded the following information about you: Don Trevino Beef Splitter 03/10/2021 1:24 PM Signed Failed fax in [employer] from 03/10/2021 regarding this patient from Dr. Webb. Faxed manually to [phone]. Scanned fax confirmation/documents into [employer]. Don Trevino Beef Splitter Allergies As of Date: 03/10/2021 Noted Allergy Reaction PENICILLINS 03/10/2021 2 - Rash Date Reviewed: 03/10/2021 Reviewed by: Martha Webb MD - Fully Assessed Reason for Visit: Electronic Communication [890] Problem List As Of Date: 03/10/2021 (None) Encounter Status:Closed by DON DIAZ on 03/10/21 Normal [facility] CBC WITH AUTO DIFFERENTIALon 10-14-2020 Basophils (Bld) [#/Vol] 0.06 10*3/uL [facility] Basophils/100 WBC (Bld) 0.6 % [facility] Eosinophils (Bld) [#/Vol] 0.36 10*3/uL [facility] Eosinophils/100 WBC (Bld) 3.4 % [facility] Erythrocyte distribution width (RBC) [Entitic vol] 13.2 % 11.6 - 14.8 % [facility] Hematocrit (Bld) [Volume fraction] 43.2 % 36 - 46 % [facility] Hemoglobin (Bld) [Mass/Vol] 14.1 g/dL 12 - 16 g/dL [facility] Immature granulocytes (Bld) [#/Vol] 0.03 10*3/uL [facility] Immature granulocytes/100 WBC (Bld) 0.30 % [facility] Comment on above: The IG parameter is the percentage of metamyelocytes, myelocytes and promyelocytes. An immature granulocyte count (IG) of 1% or more suggests the possibility of infection, an IG count of 3% is very likely related to an infection. Interpretation and review of laboratory results Abnormal [facility] Lymphocytes (Bld) [#/Vol] 1.47 10*3/uL [facility] Lymphocytes/100 WBC (Bld) 13.8 % [facility] MCH (RBC) [Entitic mass] 29.6 pg 26 - 34 pg [facility] MCHC (RBC) [Mass/Vol] 32.6 g/dL 31 - 3 7 g/dL [facility] MCV (RBC) [Entitic vol] 90.6 fL 80 - 100 fL [facility] Monocytes (Bld) [#/Vol] 0.58 10*3/uL [facility] Monocytes/100 WBC (Bld) 5.5 % [facility] Neutrophils (Bld) [#/Vol] 8.12 10*3/uL High [facility] Neutrophils/100 WBC (Bld) 76.4 % [facility] Nucleated RBC (Bld) [#/Vol] 0.00 10*3/uL [facility] Nucleated RBC/100 WBC (Bld) [Ratio] 0.0 % [facility] Platelet mean volume (Bld) [Entitic vol] 10.3 fL 9.4 - 12.4 fL [facility] Platelets (Bld) [#/Vol] 251 10*3/uL [facility] RBC (Bld) [#/Vol] 4.77 10*6/uL [facility] ealth WBC (Bld) [#/Vol] 10.62 10*3/uL [facility] COVID-19/INFLUENZA A,B [facility] 10-14-2020 COVID-19/INFLUENZA A,B MOLECULAR SARS-COV-2 (SANA): Not Detected INFLUENZA A (SANA): Not Detected INFLUENZA B (SANA): Not Detected Normal Not Detected [facility] Comment on above: Order Comment: [...] at the following links: For Healthcare Providers: https://www.fda.gov/media/117986/download For Patients: https://www.fda.gov/media/662133/download Performed By: #### L [id number] #### [facility] [address] [facility] [address] [place], [place] [address] Raffy Yadav M.D. [id number] COVID-19/Influenza A,B Molec ularon 10-14-2020 Influenza A Not Detected Not Detected [facility] Influenza B Not Detected Not Detected [facility] Interpretation and review of laboratory results Normal [facility] SARS-CoV-2 Not Detected Not Detected [facility] This test was perfor med under [...] the following links: For Healthcare Providers: https://www.fda.gov/media /462981/download For Patients: https://www.fda.gov/media /690078/download [facility] CT HEAD OR BRAIN WITHOUT CON [...] on SunOct 14, 2020 11:28:15 AM EST [facility] Comment on above: Order Comment: [...] orbits and paranasal sinuses are grossly unremarkable. [facility] 1. No acute intracra nial hemorrhage, focal edema or mass effect. Workstation ID: [id number] [facility] In Fu ji Speechq - 10/14/2020 11:30 [...] edema or mass effect. Workstation ID: [id number] [facility] Chem 7on 10-14-2020 Anion gap [Moles/Vol] 8 mmol/L Low 10 - 2 0 mmol/L [facility] Chloride [Moles/Vol] 112 mmol/L High 98 - 10 8 mmol/L [facility] Creatinine [Mass/Vol] 0.78 mg/dL 0.40 - 1.10 [facility] GFR/1.73 sq M predicted among non-blacks MDRD (S/P/Bld) [Vol rate/Area] The eGFR should be used for monitoring renal function only and not for medication dosing. [facility] GFR/1.73 sq M.predicted CKD-EPI (S/P/Bld) [Vol rate/Area] 105 >=60 mL/min/1.73 m2 [facility] Glucose [Mass/Vol] 78 mg/dL 65 - 99 mg/dL [facility] HCO3 [Moles/Vol] 24 mmol/L 21 - 32 mmol/L [facility] Interpretation and review of laboratory results Abnormal [facility] Potassium [Moles/Vol] 4.5 mmol/L 3.5 - 5.1 mmol/L [facility] Comment on above: moderate hemolysis, result may be falsely increased. Sodium [Moles/Vol] 139 mmol/L 135 - 145 mmol/L [facility] Urea nitrogen [Mass/Vol] 5 mg/dL Low 8 - 25 mg/dL [facility] Urea nitrogen/Creatinine [Mass ratio] 6.4 mg/mg Low [facility] Otheron 10-14-2020 Extra Tube Hold for add-ons. [facility] Comment on above: Auto resulted. URINALYSISon 10-14-2020 Bacteria Auto Ql (U) None Seen None Se en /hpf [facility] Bilirubin Ql (U) Negative Negative [facility] Clarity Refractometry automated (U) Cloudy Abnormal Clear [facility] Color (U) Yellow Colorless, Yellow [facility] Epithelial cells.squamous Auto (Urine sed) [#/Area] 18 High [facility] Glucose Auto test strip (U) [Mass/Vol] Negative Negative mg/dL [facility] Hemoglobin Auto test strip Ql (U) Negative Negative [facility] Interpretation and review of laboratory results Abnormal [facility] Ketones (U) [Mass/Vol] Negative Negat juju mg/dL [facility] Leukocyte esterase Auto test strip Ql (U) Trace Abnormal Negative [facility] h Mucus Auto (Urine sed) [#/Area] Many Abnormal None Seen, Rare /lpf [facility] Nitrite Auto test strip Ql (U) Negative Negative [facility] pH (U) 8.0 [pH] High [facility] Protein (U) [Mass/Vol] 30 Abnormal Negat juju mg/dL [facility] Comment on above: False positive resul ts may occur in urines with large amounts of hemoglobin, pH greater than 8.0, contrast medium, or disinfectants including ammonium compounds. RBC Auto (Urine sed) [#/Area] 3 [facility] Specific gravity (U) [Rel density] 1.028 High [facility] Urobilinogen (U) [Mass/Vol] 2.0 mg/dL Abnormal <2.0 [facility] WBC Auto (Urine sed) [#/Area] 3 [facility] Microscopic examinat ion is performed on all urinalysis samples and only positive findings are reported. The test for blood on the chemical analytic portion of urinalysis may also be positive due to hemoglobinuria and myoglobinuria and if red blood cells are present they are quantified by microscopic examination. [facility] hCG Urine, Qualitativeon HCG ( test) Ql (U) Negative Negative [facility] Interpretation and review of laboratory results Normal [facility] ABDOMEN, COMPLT ACUTE SERIES on 09-05-2020 ABDOMEN, COMPLT ACUTE SERIES Patient Name: SUSAN BRO STUDY: ABDOMEN, COMPLT ACUTE SERIES; 09/04/2020 11:54 pm INDICATION: constipation. COMPARISON: None. ACCESSION NUMBER(S): [id number] ORDERING CLINICIAN: BRAYDEN YANEZ TECHNIQUE: Abdomen supine [...] pathology. Electronically signed by: CANDACE AREVALO MD [facility] BASIC METABOLIC PANELon 11-2 Anion gap [Moles/Vol] 12 mmol/L Normal 10 - 20 [facility] Comment on above: Performed By: #### B MP #### [address] [address] Calcium [Mass/Vol] 9.0 mg/dL Normal 8.6 - 10.3 [facility] Comment on above: Performed By: #### B MP #### [address] [address] Chloride [Moles/Vol] 105 mmol/L Normal 98 - 107 [facility] Comment on above: Performed By: #### B MP #### [address] [address] Creatinine [Mass/Vol] 0.90 mg/dL Normal 0.50 - 1.05 [facility] Comment on above: Performed By: #### B MP #### [address] [address] GFR- AM. >60 Normal >60 [facility] Comment on above: Result Comment: CALC ULATIONS OF ESTIMATED GFR ARE PERFORMED USING THE MDRD STUDY EQUATION FOR THE IDMS-TRACEABLE CREATININE METHODS. CLIN CHEM 2007;53:766-72 Performed By: #### B MP #### [address] [address] GFR-NON AM. >60 Normal >60 [facility] Comment on above: Performed By: #### B MP #### [address] [address] Glucose [Mass/Vol] 96 mg/dL Normal 74 - 99 [facility] Comment on above: Performed By: #### B MP #### [address] [address] HCO3 (Bld) [Moles/Vol] 25 mmol/L Normal 21 - 32 [facility] Comment on above: Performed By: #### B MP #### [address] [address]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 [facility] 09-20-2022 09:48-0500 Systolic blood pressure 132 mm[Hg] Luis Carlos Jung [facility] 09-19-2022 03:38-0500 Hourly Rounding Jj MOOREDIETER [facility] Comment on above: Result Comment: pt walks off unit with a steady gait 09-19-2022 02:45-0500 Blood Pressure Location Jj KARASIK [facility] 09-19-2022 02:45-0500 Body temperature 98.42 [degF] Jj KARASIK [facility] 09-19-2022 02:45-0500 Diastolic blood pressure 77 mm[Hg] Jj KARASIK [facility] 09-19-2022 02:45-0500 Heart rate 62 /min Jj KARASIK [facility] 09-19-2022 02:45-0500 Hourly Rounding Jj KARASIK [facility] Comment on above: Result Comment: questions answered, guillaume monk 09-19-2022 02:45-0500 Mean blood pressure 91 mm[Hg] Jj KARASIK [facility] 09-19-2022 02:45-0500 Respiratory rate 18 /min Jj KARASIK [facility] 09-19-2022 02:45-0500 Systolic blood pressure 120 mm[Hg] Jj KARASIK [facility] 09-19-2022 01:45-0500 Blood Pressure Location Jj KARASIK [facility] 09-19-2022 01:45-0500 Body temperature 98.06 [degF] Jj KARASIK [facility] 09-19-2022 01:45-0500 Diastolic blood pressure 84 mm[Hg] Jj KARASIK [facility] 09-19-2022 01:45-0500 Heart rate 70 /min Jj KARASIK [facility] 09-19-2022 01:45-0500 Hourly Rounding Jj KARASIK [facility] Comment on above: Result Comment: pt brought to unit via w heelchair. Changes into gown independently and provides urine sample. Pt demonstrates ability to use call light. Needs met, call light in reach 09-19-2022 01:45-0500 Mean blood pressure 96 mm[Hg] Jj MIKE [facility] 09-19-2022 01:45-0500 Respiratory rate 18 /min Jj MIKE [facility] 09-19-2022 01:45-0500 Systolic blood pressure 120 mm[Hg] Jj MIKE [facility] 09-14-2022 12:15-0500 Hourly Rounding Luis Carlos Jung [facility] Comment on above: Result Comment: reviewed plan for disch and use of meds to treat head ache 09-14-2022 11:45-0500 Hourly Rounding Luis Carlos Jung [facility] Comment on above: Result Comment: STATES SHE FEELS MUCH BE TTER AND WANTS TO GO HOME 09-14-2022 11:15-0500 Diastolic blood pressure 73 mm[Hg] Luis Carlos Jung [facility] 09-14-2022 11:15-0500 Heart rate 74 /min Luis Carlos Jung [facility] 09-14-2022 11:15-0500 Hourly Rounding Luis Carlos Jung [facility] 09-14-2022 11:15-0500 Mean blood pressure 88 mm[Hg] Luis Carlos Jung [facility] 09-14-2022 11:15-0500 Systolic blood pressure 119 mm[Hg] Luis Carlos Jung [facility] 09-14-2022 11:00-0500 Diastolic blood pressure 66 mm[Hg] Luis Carlos Jung [facility] 09-14-2022 11:00-0500 Heart rate 67 /min Luis Carlos Jung [facility] 09-14-2022 11:00-0500 Mean blood pressure 84 mm[Hg] Luis Carlos Jung [facility] 09-14-2022 11:00-0500 Systolic blood pressure 120 mm[Hg] Luis Carlos Jung [facility] 09-14-2022 10:45-0500 Diastolic blood pressure 72 mm[Hg] Luis Carlos Jung [facility] 09-14-2022 10:45-0500 Heart rate 75 /min Luis Carlos Jung [facility] 09-14-2022 10:45-0500 Mean blood pressure 90 mm[Hg] Luis Carlos Jung [facility] 09-14-2022 10:45-0500 Systolic blood pressure 125 mm[Hg] Luis Carlos Jung [facility] 09-14-2022 09:30-0500 Blood Pressure Location Luis Carlos Jung [facility] 09-14-2022 09:30-0500 Body temperature 98.06 [degF] Luis Carlos Jung [facility] 09-14-2022 09:30-0500 Respiratory rate 16 /min Luis Carlos Jung [facility] 09-12-2022 20:45-0500 Hourly Rounding Luis Carlos Jung [facility] Comment on above: Result Comment: dischage instructions gi merly, pt verbalizes understanding. pt ambulates off unit with steady gait 09-12-2022 20:00-0500 Blood Pressure Location Luis Carlos Jung [facility] 09-12-2022 20:00-0500 Diastolic blood pressure 79 mm[Hg] Luis Carlos Jung [facility] 09-12-2022 20:00-0500 Heart rate 84 /min Luis Carlos Jung [facility] 09-12-2022 20:00-0500 Hourly Rounding Luis Carlos Jung [facility] 09-12-2022 20:00-0500 Mean blood pressure 95 mm[Hg] Luis Carlos Jung [facility] 09-12-2022 20:00-0500 Respiratory rate 18 /min Luis Carlos Jung [facility] 09-12-2022 20:00-0500 Systolic blood pressure 128 mm[Hg] Luis Carlos Jung [facility] 09-12-2022 19:45-0500 Hourly Rounding Luis Carlos Jung [facility] Comment on above: Result Comment: pt arrives to unit in [facility] with mother. Changes into gown independently, oriented to room, demonstrates ability to use call light, call light in reach 09-08-2022 08:32-0500 Blood Pressure Location Luis Carlos Jung [facility] 09-08-2022 08:32-0500 Body temperature 97.34 [degF] Luis Carlos Jung [facility] 09-08-2022 08:32-0500 Diastolic blood pressure 74 mm[Hg] Luis Carlos Jung [facility] 09-08-2022 08:32-0500 Heart rate 90 /min Luis Carlos Jung [facility] 09-08-2022 08:32-0500 Hourly Rounding Luis Carlos Jung [facility] Comment on above: Result Comment: PLAN OF CARE DISCUSSED 09-08-2022 08:32-0500 Mean blood pressure 90 mm[Hg] Luis Carlos Jung [facility] 09-08-2022 08:32-0500 Respiratory rate 18 /min Luis Carlos Jung [facility] 09-08-2022 08:32-0500 Systolic blood pressure 123 mm[Hg] Luis Carlos Jung [facility] 09-05-2022 22:00-0500 Body temperature 98.6 [degF] Kaylinn Dokken [facility] 09-05-2022 22:00-0500 Diastolic blood pressure 73 mm[Hg] Kaylinn Dokken [facility] 09-05-2022 22:00-0500 Mean blood pressure 85 mm[Hg] Kaylinn Dokken [facility] 09-05-2022 22:00-0500 Respiratory rate 27 /min Kaylinn Dokken [facility] 09-05-2022 22:00-0500 SaO2% (BldA) [Mass fraction] 100 % Kaylinn Dokken [facility] 09-05-2022 22:00-0500 Systolic blood pressure 108 mm[Hg] Kaylinn Dokken [facility] 09-05-2022 21:01-0500 Heart rate 78 /min Kaylinn Dokken [facility] 09-05-2022 21:01-0500 Respiratory rate 20 /min Kaylinn Dokken [facility] 09-05-2022 21:01-0500 SaO2% (BldA) [Mass fraction] 94 % Kaylinn Dokken [facility] 09-05-2022 21:00-0500 Diastolic blood pressure 77 mm[Hg] Tyrelinn Dodarrinen [facility] 09-05-2022 21:00-0500 Mean blood pressure 87 mm[Hg] Tyrelinn Dokken [facility] 09-05-2022 20:10-0500 Body temperature 97.7 [degF] Miladysn Dodarrinen [facility] 09-05-2022 20:10-0500 Diastolic blood pressure 81 mm[Hg] Tyrelinn Dodarrinen [facility] 09-05-2022 20:10-0500 Heart rate 83 /min Gopi Cesaren [facility] 09-05-2022 20:10-0500 Respiratory rate 22 /min Miladysn Arsenioen [facility] 09-05-2022 20:10-0500 SaO2% (BldA) [Mass fraction] 99 % Gopi Rodriguez [facility] 09-05-2022 20:10-0500 Systolic blood pressure 135 mm[Hg] Miladysn Dokken [facility] 08-31-2022 01:03-0500 Hourly Rounding Luis Carlos Jung [facility] Comment on above: Result Comment: pt ambulates off unit at this time w/ steady gait. 08-31-2022 00:58-0500 Hourly Rounding Luis Carlos Jung [facility] Comment on above: Result Comment: this nurse gives dischar ge instructions to pt at this time. pt verbalizes understanding of all education given. denies further needs. will continue to monitor. 08-31-2022 00:50-0500 Blood Pressure Location Luis Carlos Jung [facility] 08-31-2022 00:50-0500 Diastolic blood pressure 69 mm[Hg] Luis Carlos Jung [facility] 08-31-2022 00:50-0500 Heart rate 67 /min Luis Carlos Jung [facility] 08-31-2022 00:50-0500 Hourly Rounding Luis Carlos Jung [facility] Comment on above: Result Comment: pt up to bathroom at thi s time to void and change into clothes. walks w/ steady gait. 08-31-2022 00:50-0500 Mean blood pressure 83 mm[Hg] Luis Carlos Jung [facility] 08-31-2022 00:50-0500 Respiratory rate 18 /min Luis Carlos Jung [facility] 08-31-2022 00:50-0500 Systolic blood pressure 112 mm[Hg] Luis Carlos Jung [facility] 08-30-2022 21:52-0500 Body temperature 98.06 [degF] Luis Carlos Jung [facility] 08-30-2022 21:52-0500 Diastolic blood pressure 74 mm[Hg] Luis Carlos Jung [facility] 08-30-2022 21:52-0500 Heart rate 82 /min Luis Carlos Jung [facility] 08-30-2022 21:52-0500 Mean blood pressure 90 mm[Hg] Luis Carlos Jung [facility] 08-30-2022 21:52-0500 Respiratory rate 18 /min Luis Carlos Jung [facility] 08-30-2022 21:52-0500 Systolic blood pressure 123 mm[Hg] Luis Carlos Jung [facility] 08-30-2022 21:45-0500 Blood Pressure Location Luis Carlos Jung [facility] 08-22-2022 17:19-0500 Hourly Rounding Luis Carlos Jung [facility] Comment on above: Result Comment: MONITORS OFF; PT UP TO D RESS. DISCHARGE INSTRUCTIONS GIVEN WITH VERBAL UNDERSTANDING. 08-22-2022 15:14-0500 Diastolic blood pressure 71 mm[Hg] Luis Carlos Jung [facility] 08-22-2022 15:14-0500 Heart rate 87 /min Luis Carlos Jung [facility] 08-22-2022 15:14-0500 Hourly Rounding Luis Carlos Jung [facility] 08-22-2022 15:14-0500 Mean blood pressure 86 mm[Hg] Luis Carlos Jung [facility] 08-22-2022 15:14-0500 Respiratory rate 18 /min Luis Carlos Jung [facility] 08-22-2022 15:14-0500 Systolic blood pressure 115 mm[Hg] Luis Carlos Jung [facility] 08-18-2022 12:28-0400 Hourly Rounding Luis Carlos Jung [facility] Comment on above: Result Comment: pt verbalizes understand ing of discharge instructions. pt states she has an appointment sunday with dr jung. pt ambulated out of unit 08-18-2022 10:28-0400 Hourly Rounding Luis Carlos Jung [facility] Comment on above: Result Comment: pt c/o left lower abd pa in. states it is intermittent and sharp. encouraged pt to get up and empty bladder. pt states pain is still 7/10. dr jung on unit & at bedside 08-18-2022 09:09-0400 Hourly Rounding Luis Carlos Jung [facility] Comment on above: Result Comment: pt sitting up in bed wit h breakfast tray, visitor at bedside 08-18-2022 07:15-0400 Blood Pressure Location Luis Carlos Jung [facility] 08-18-2022 07:15-0400 Diastolic blood pressure 56 mm[Hg] Luis Carlos Montesinosten [facility] 08-18-2022 07:15-0400 Heart rate 69 /min Luis Carlos Montesinosten [facility] 08-18-2022 07:15-0400 Mean blood pressure 74 mm[Hg] Luis Carlos Montesinosten [facility] 08-18-2022 07:15-0400 Respiratory rate 16 /min Luis Carlos Jung [facility] 08-18-2022 07:15-0400 Systolic blood pressure 111 mm[Hg] Luis Carlos Montesinosten [facility] 08-18-2022 05:58-0400 Blood Pressure Location Luis Carlos Jung [facility] 08-18-2022 05:58-0400 Diastolic blood pressure 59 mm[Hg] Luis Carlos Montesinosten [facility] 08-18-2022 05:58-0400 Heart rate 67 /min Luis Carlos Jung [facility] 08-18-2022 05:58-0400 Mean blood pressure 77 mm[Hg] Luis Carlos Montesinosten [facility] 08-18-2022 05:58-0400 Respiratory rate 16 /min Luis Carlos Jung [facility] 08-18-2022 05:58-0400 Systolic blood pressure 113 mm[Hg] Luis Carlos Montesinosten [facility] 08-18-2022 04:06-0400 Blood Pressure Location Luis Carlos Jung [facility] 08-18-2022 04:06-0400 Body temperature 98.06 [degF] Luis Carlos Jung [facility] 08-18-2022 04:06-0400 Diastolic blood pressure 65 mm[Hg] Luis Carlos Jung [facility] 08-18-2022 04:06-0400 Heart rate 70 /min Luis Carlos Jung [facility] 08-18-2022 04:06-0400 Mean blood pressure 79 mm[Hg] Luis Carlos Jung [facility] 08-18-2022 04:06-0400 Respiratory rate 16 /min Luis Carlos Jung [facility] 08-18-2022 04:06-0400 Systolic blood pressure 107 mm[Hg] Luis Carlos Jung [facility] 08-13-2022 20:04-0400 Hourly Rounding Luis Carlos Jung [facility] Comment on above: Result Comment: Patient discharged off u nit. Discharge instructions were reviewed. Pt walks off unit without any notable signs or symtpoms of distress. 08-13-2022 19:45-0400 Hourly Rounding Luis Carlos Jung [facility] 08-13-2022 19:45-0400 Hourly Rounding Luis Carlos Jung [facility] Comment on above: Result Comment: Patient sitting in bed. BPP results reviewed with patient. Pt denied any additional questions. Call light within reach. 08-13-2022 18:12-0400 Heart rate 88 /min Luis Carlos Jung [facility] 08-13-2022 18:12-0400 Nursing Progress Note Reason Other: Pt updated on orders received from . jose understanding Luis Carlos Jung [facility] 08-13-2022 18:12-0400 SaO2% (BldA) [Mass fraction] 99 % Luis Carlos Jung [facility] 08-13-2022 17:33-0400 Body temperature 97.88 [degF] Luis Carlos Jung [facility] 08-13-2022 17:33-0400 Diastolic blood pressure 72 mm[Hg] Luis Carlos Jung [facility] 08-13-2022 17:33-0400 Mean blood pressure 88 mm[Hg] Luis Carlos Jung [facility] 08-13-2022 17:33-0400 Respiratory rate 18 /min Luis Carlos Jung [facility] 08-13-2022 17:33-0400 Systolic blood pressure 121 mm[Hg] Luis Carlos Jung [facility] 07-26-2022 10:22-0400 Hourly Rounding Luis Carlos Jung [facility] Comment on above: Result Comment: discharge instructions p rovided and pt signs discharge consent with RN witness. pt preparing for discharge, belly band placed on pt. RN offers wheelchair exit for discharge and pt declines and wants to walk down on own. 07-26-2022 10:22-0400 Promise to Return Luis Carlos Jung [facility] 07-26-2022 10:00-0400 Hourly Rounding Luis Carlos Jung [facility] 07-26-2022 10:00-0400 Promise to Return Luis Carlos Jung [facility] 07-26-2022 09:15-0400 Blood Pressure Location Luis Carlos Jung [facility] 07-26-2022 09:15-0400 Body temperature 97.7 [degF] Luis Carlos Jung [facility] 07-26-2022 09:15-0400 Diastolic blood pressure 62 mm[Hg] Luis Carlos Jung [facility] 07-26-2022 09:15-0400 Heart rate 70 /min Luis Carlos Jung [facility] 07-26-2022 09:15-0400 Hourly Rounding Luis Carlos Jung [facility] 07-26-2022 09:15-0400 Mean blood pressure 74 mm[Hg] Luis Carlos Jung [facility] 07-26-2022 09:15-0400 Respiratory rate 18 /min Luis Carlos Jung [facility] 07-26-2022 09:15-0400 Systolic blood pressure 97 mm[Hg] Luis Carlos Jung [facility] 07-26-2022 09:00-0400 Promise to Return Luis Carlos Jung [facility] 07-26-2022 08:14-0400 Body temperature 98.06 [degF] Luis Carlos Jung [facility] 07-26-2022 08:14-0400 Diastolic blood pressure 66 mm[Hg] Luis Carlos Jung [facility] 07-26-2022 08:14-0400 Heart rate 81 /min Luis Carlos Jung [facility] 07-26-2022 08:14-0400 Mean blood pressure 80 mm[Hg] Luis Carlos Jung [facility] 07-26-2022 08:14-0400 Respiratory rate 18 /min Luis Carlos Jung [facility] 07-26-2022 08:14-0400 Systolic blood pressure 109 mm[Hg] Luis Carlos Jung [facility] 07-17-2022 09:07-0400 Body temperature 97.88 [degF] Ko Dumas [facility] 07-17-2022 09:07-0400 Diastolic blood pressure 74 mm[Hg] Ko Dumas [facility] 07-17-2022 09:07-0400 Heart rate 85 /min Ko Dumas [facility] 07-17-2022 09:07-0400 Respiratory rate 16 /min Ko Dumas [facility] 07-17-2022 09:07-0400 SaO2% (BldA) [Mass fraction] 100 % Ko Dumas [facility] 07-17-2022 09:07-0400 Systolic blood pressure 117 mm[Hg] Ko Dumas [facility] 06-26-2022 21:38-0400 Blood Pressure Location Luis Carlos uJng [facility] 06-26-2022 21:38-0400 Diastolic blood pressure 61 mm[Hg] Luis Carlos Jung [facility] 06-26-2022 21:38-0400 Heart rate 83 /min Luis Carlos Jung [facility] 06-26-2022 21:38-0400 Hourly Rounding Luis Carlos Jung [facility] Comment on above: Result Comment: discharged ambulatory to pov 06-26-2022 21:38-0400 Mean blood pressure 75 mm[Hg] Luis Carlos Fabiana [facility] 06-26-2022 21:38-0400 Respiratory rate 16 /min Luis Carlos Jung [facility] 06-26-2022 21:38-0400 Systolic blood pressure 102 mm[Hg] Luis Carlos Jung [facility] 06-26-2022 21:15-0400 Blood Pressure Location Luis Carlos Jung [facility] 06-26-2022 21:15-0400 Diastolic blood pressure 64 mm[Hg] Luis Carlos Jung [facility] 06-26-2022 21:15-0400 Heart rate 74 /min Luis Carlos Jung [facility] 06-26-2022 21:15-0400 Hourly Rounding Luis Carlos Jung [facility] 06-26-2022 21:15-0400 Mean blood pressure 78 mm[Hg] Luis Carlos Jung [facility] 06-26-2022 21:15-0400 Respiratory rate 16 /min Luis Carlos Jung [facility] 06-26-2022 21:15-0400 Systolic blood pressure 106 mm[Hg] Luis Carlos Jung [facility] 06-26-2022 21:05-0400 Body temperature 97.88 [degF] Luis Carlos Jung [facility] 06-26-2022 21:05-0400 Respiratory rate 18 /min Luis Carlos Jung [facility] 06-26-2022 21:00-0400 Hourly Rounding Luis Carlos Jung [facility] Comment on above: Result Comment: ice water given 06-19-2022 01:30-0400 Hourly Rounding Luis Carlos Jung [facility] Comment on above: Result Comment: updated on plan of care after speaking to dr jung. verb understanding and all d/c instructions provided. denies further needs/concerns. ambulates off unit without any further questions. 06-19-2022 01:00-0400 Hourly Rounding Luis Carlos Jung [facility] Comment on above: Result Comment: rests in bed on phone. d enies any needs. denies any pain at this time or any pain or cramping since arrival. call light within reach 06-19-2022 00:15-0400 Hourly Rounding Luis Carlos Jung [facility] 06-18-2022 23:54-0400 Body temperature 97.88 [degF] Luis Carlos Jung [facility] 06-18-2022 23:54-0400 Diastolic blood pressure 65 mm[Hg] Luis Carlos Jung [facility] 06-18-2022 23:54-0400 Heart rate 76 /min Luis Carlos Jung [facility] 06-18-2022 23:54-0400 Mean blood pressure 81 mm[Hg] Luis Carlos Jung [facility] 06-18-2022 23:54-0400 Respiratory rate 18 /min Luis Carlos Jung [facility] 06-18-2022 23:54-0400 Systolic blood pressure 112 mm[Hg] Luis Carlos Jung [facility] 06-18-2022 23:45-0400 Blood Pressure Location Luis Carlos Jung [facility] 05-01-2022 17:45-0400 Hourly Rounding Luis Carlos Jung [facility] Comment on above: Result Comment: reviewed disch inst and meds to take states understanding 05-01-2022 17:30-0400 Hourly Rounding Luis Carlos Jung [facility] 05-01-2022 17:23-0400 Body temperature 98.06 [degF] Luis Carlos Jung [facility] 05-01-2022 17:23-0400 Diastolic blood pressure 57 mm[Hg] Luis Carlos Jung [facility] 05-01-2022 17:23-0400 Heart rate 83 /min Luis Carlos Jung [facility] 05-01-2022 17:23-0400 Mean blood pressure 71 mm[Hg] Luis Carlos Jung [facility] 05-01-2022 17:23-0400 Respiratory rate 16 /min Luis Carlos Jung [facility] 05-01-2022 17:23-0400 Systolic blood pressure 99 mm[Hg] Luis Carlos Jung [facility] 05-01-2022 17:15-0400 Blood Pressure Location Luis Carlos Jung [facility] 05-01-2022 17:15-0400 Hourly Rounding Luis Carlos Jung [facility] 04-02-2022 13:30-0400 Hourly Rounding Luis Carlos Jung [facility] Comment on above: Result Comment: pt given discharge instr uctions at this time to follow up with fabiana sunday or states understanding to call office tomorrow for appointment 04-02-2022 12:30-0400 Hourly Rounding Luis Carlos Jung [facility] Comment on above: Result Comment: pt returns to bed from r estroom at this time denies discomfort at this time 04-02-2022 11:30-0400 Hourly Rounding Luis Carlos Fabiana [facility] Comment on above: Result Comment: pt sitting in bed at thi s time denies needs or discomfort 04-02-2022 06:28-0400 Body temperature 99.68 [degF] Luis Carlos Jung [facility] 04-02-2022 06:28-0400 Diastolic blood pressure 68 mm[Hg] Luis Carlos Jung [facility] 04-02-2022 06:28-0400 Heart rate 89 /min Luis Carlos Jung [facility] 04-02-2022 06:28-0400 Heart rate 86 /min Luis Carlos Jung [facility] 04-02-2022 06:28-0400 Mean blood pressure 83 mm[Hg] Luis Carlos Jung [facility] 04-02-2022 06:28-0400 Respiratory rate 20 /min Luis Carlos Jung [facility] 04-02-2022 06:28-0400 SaO2% (BldA) [Mass fraction] 98 % Luis Carlos Jung [facility] 04-02-2022 06:28-0400 Systolic blood pressure 114 mm[Hg] Luis Carlos Jung [facility] 03-23-2022 21:08-0400 Hourly Rounding Luis Carlos Jung [facility] Comment on above: Result Comment: Patient ambulatory off u nit. No signs or symptoms of distress noted. 03-23-2022 20:35-0400 Hourly Rounding Luis Carlos Jung [facility] Comment on above: Result Comment: Patient updated on plan of care. Verbalizes understanding. Call light in reach. 03-23-2022 19:49-0400 Blood Pressure Location Luis Carlos Jung [facility] 03-23-2022 19:49-0400 Body temperature 98.78 [degF] Luis Carlos Jung [facility] 03-23-2022 19:49-0400 Diastolic blood pressure 66 mm[Hg] Luis Carlos Jung [facility] 03-23-2022 19:49-0400 Heart rate 69 /min Luis Carlos Jung [facility] 03-23-2022 19:49-0400 Hourly Rounding Luis Carlos Jung [facility] Comment on above: Result Comment: Patient arrives on unit. 03-23-2022 19:49-0400 Mean blood pressure 79 mm[Hg] Luis Carlos Jung [facility] 03-23-2022 19:49-0400 Respiratory rate 16 /min Luis Carlos Jung [facility] 03-23-2022 19:49-0400 Systolic blood pressure 106 mm[Hg] Luis Carlos Jung [facility] 10-14-2020 13:15-0500 Pulse (Heart Rate) 74 /min [facility] 10-14-2020 13:15-0500 Pulse Oximetry 98 % [facility] 10-14-2020 13:15-0500 Respiratory Rate 16 /min [facility] 10-14-2020 13:00-0500 BP Diastolic 74 mm[Hg] [facility] 10-14-2020 13:00-0500 BP Systolic 123 mm[Hg] [facility] 10-14-2020 10:13-0500 BMI (Body Mass Index) 34.33 kg/m2 [facility] 10-14-2020 10:13-0500 Body Temperature 97.81 [degF] [facility] 10-14-2020 10:13-0500 Body weight 90.72 kg [facility] 10-14-2020 10:13-0500 Height 162.6 cm [facility] 08-09-2020 20:33-0400 BP Diastolic 81 mm[Hg] [place] 08-09-2020 20:33-0400 BP Systolic 122 mm[Hg] [facility]ari [facility] [place] 08-09-2020 20:33-0400 Pulse (Heart Rate) 78 /min Bakari Valente [facility] [place] 08-09-2020 20:33-0400 Respiratory Rate 16 /min Bakari Valente [facility] [place] 08-09-2020 19:03-0400 BMI (Body Mass Index) 39.48 kg/m2 Bakari Val[facility] [place] 08-09-2020 19:03-0400 Body Temperature 98.29 [degF] Bakari Valente [facility] [place] 08-09-2020 19:03-0400 Body weight 104.33 kg Bakari Valente [facility] [place] 08-09-2020 19:03-0400 Height 162.6 cm Bakari Valente [facility] [place] 08-09-2020 19:03-0400 Pulse Oximetry 98 % [place] Encounters Encounter Date Encounter Type Care Provider Facility Start: 11-20-2023 End: 11-20-2023 ambulatory RASHAUN PERRY Not Available Start: 11-20-2023 End: 11-20-2023 Office outpatient visit 15 minutes Rashaun Perry DO Work Phone: [facility] Comment on above: Third trimester preg anh Start: 11-06-2023 End: 11-06-2023 ambulatory RASHAUN PERRY Not Available Start: 11-04-2023 End: 11-04-2023 OB Triage Rashaun R PERRY [facility] Start: 10-31-2023 End: 10-31-2023 ambulatory RASHAUN PERRY Not Available Start: 10-18-2023 End: 10-18-2023 ambulatory DODIE MILLER Not Available Start: 10-03-2023 End: 10-03-2023 ambulatory DODIE ANGELA Not Available Start: 09-12-2023 End: 09-12-2023 ambulatory RASHAUN PERRY Not Available Start: 08-23-2023 End: 08-23-2023 Lab Drop off ZORAN J ELEN [facility] Start: 08-23-2023 End: 08-24-2023 ambulatory 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 WORKER ZORAN CHAMBERLAINAULT Facility:[facility] Start: 08-19-2023 End: 09-14-2023 Pre-admission assessment Julia Haywood [facility] Start: 08-18-2023 End: 08-18-2023 ambulatory DO Julia Haywood Facility:[facility] Start: 08-18-2023 End: 08-18-2023 OB Triage Julia Haywood [facility] Start: 07-25-2023 End: 07-25-2023 Emergency department patient visit Kristian Guillermo Facility:[facility] Start: 07-25-2023 End: 07-25-2023 Emergency department patient visit Kristian Guillermo [facility] Start: 06-28-2023 End: 06-29-2023 ambulatory Roverto Crow. Spasic Facility:[facility] Start: 06-28-2023 End: 06-28-2023 Patient encounter procedure Roverto V. Spasic [facility] Start: 06-14-2023 End: 06-14-2023 Emergency department patient visit Kristian Guillermo Facility:[facility] Start: 06-14-2023 End: 06-14-2023 Emergency department patient visit Kristian Guillermo [facility] Start: 06-12-2023 End: 06-13-2023 ambulatory Luis Carlos Jung Facility:[facility] Start: 06-12-2023 End: 06-12-2023 Patient encounter procedure Luis Carlos Jung [facility] Start: 05-21-2023 End: 05-22-2023 Emergency department patient visit DO Gopi Rodriguez Facility:[facility] Start: 05-21-2023 End: 05-21-2023 Emergency department patient visit Gopi Rodriguez [facility] Start: 04-30-2023 End: 05-01-2023 ambulatory Luis Carlos Jung Facility:[facility] Start: 04-30-2023 End: 04-30-2023 Lab Drop off Luis Carlos Jung [facility] Start: 04-30-2023 End: 05-01-2023 ambulatory Luis Carlos Jung Facility:[facility] Start: 04-30-2023 End: 04-30-2023 Patient encounter procedure Luis Carlos Byrd Fabiana [facility] Start: 04-26-2023 End: 04-26-2023 Emergency department patient visit Laura Sotelorob Facility:[facility] Start: 04-26-2023 End: 04-26-2023 Emergency department patient visit Laura Sotelorob [facility] Start: 01-31-2023 End: 01-31-2023 Emergency department patient visit Kristian Guillermo Facility:[facility] Start: 01-31-2023 End: 01-31-2023 Emergency department patient visit Kristian Guillermo [facility] Start: 09-24-2022 End: 09-27-2022 Evaluation and management of inpatient Luis Carlos Jung Facility:[facility] Start: 09-22-2022 End: 09-22-2022 ambulatory Luis Carlos Jung Facility:[facility] Start: 09-22-2022 End: 09-22-2022 OB Triage Luis Carlos Jung [facility] Start: 09-20-2022 End: 09-20-2022 ambulatory Luis Carlos Jung Facility:[facility] Start: 09-20-2022 End: 09-20-2022 OB Triage Luis Carlos Jung [facility] Start: 09-19-2022 End: 09-19-2022 ambulatory Jj MIKE Facility:[facility] Start: 09-19-2022 End: 09-19-2022 OB Triage Jj MIKE [facility] Start: 09-14-2022 End: 09-14-2022 ambulatory Luis Carlos Jung Facility:[facility] Start: 09-14-2022 Emergency department patient visit DO Gopi Rodriguez Facility:[facility] Start: 09-14-2022 End: 09-14-2022 OB Triage Luis Carlos Jung [facility] Start: 09-12-2022 End: 09-12-2022 ambulatory Luis Carlos Jung Facility:[facility] Start: 09-12-2022 End: 09-12-2022 OB Triage Luis Carlos Jung [facility] Start: 09-08-2022 End: 09-08-2022 ambulatory Luis Carlos Jung Facility:[facility] Start: 09-08-2022 End: 09-08-2022 OB Triage Luis Carlos Jung [facility] Start: 09-06-2022 End: 12-06-2022 ambulatory Luis Carlos Jung Facility:[facility] Start: 09-05-2022 End: 09-06-2022 Emergency department patient visit DO Carrolemilee Cesartoña Facility:[facility] Start: 09-05-2022 End: 09-05-2022 Emergency department patient visit Gopi Rodriguez [facility] Start: 09-05-2022 End: 12-05-2022 Patient encounter procedure SELF REFERRAL [facility] Start: 09-04-2022 End: 09-05-2022 ambulatory Luis Carlos Montesinosten Facility:[facility] Start: 09-04-2022 End: 09-04-2022 Lab Drop off Luis Carlos Jung [facility] Start: 08-30-2022 End: 08-31-2022 ambulatory Luis Carlos Byrd Fabiana Facility:[facility] Start: 08-30-2022 End: 08-31-2022 OB Triage Luis Carlos Jung [facility] Start: 08-22-2022 End: 08-22-2022 OB Triage Luis Carlos Jung [facility] Start: 08-18-2022 End: 08-18-2022 OB Triage Luis Carlos Jung [facility] Start: 08-13-2022 End: 08-13-2022 OB Triage Luis Carlos Jung [facility] Start: 07-26-2022 End: 07-26-2022 OB Triage Luis Carlos Jung [facility] Start: 07-17-2022 End: 07-17-2022 Emergency department patient visit Ko Dumas [facility] Start: 06-28-2022 End: 06-28-2022 Patient encounter procedure Luis Carlos Jung [facility] Start: 06-26-2022 End: 06-26-2022 OB Triage Luis Carlos Jung [facility] Start: 06-20-2022 End: 07-15-2022 Pre-admission assessment Luis Carlos Jung [facility] Start: 06-18-2022 End: 06-19-2022 OB Triage Luis Carlos Jung [facility] Start: 05-02-2022 End: 06-15-2022 Pre-admission assessment THANG MILLAN [facility] Start: 05-01-2022 End: 05-01-2022 OB Triage Luis Carlos Jung [facility] Start: 04-02-2022 End: 04-02-2022 OB Triage Luis Carlos Jung [facility] Start: 03-23-2022 End: 03-23-2022 OB Triage Luis Carlos Jung [facility] Start: 03-16-2022 End: 03-16-2022 Patient encounter procedure Luis Carlos Rochelle Jung [facility] Start: 02-15-2022 End: 02-15-2022 Lab Drop off Luis Carlos Rochelle Jung [facility] Start: 02-23-2021 End: 02-23-2021 Patient encounter procedure Martha Webb MD Work Phone: [facility] Start: 02-23-2021 Results Only Martha Webb MD Work Phone: Gastroenterology Start: 10-14-2020 End: 10-14-2020 Emergency department patient visit PHYSICIAN NO [facility] Start: 10-14-2020 End: 10-14-2020 Emergency department patient visit Regine Chow Work Phone: [facility] Emergency Department Comment on above: Vertigo (Primary Dx) Start: 08-09-2020 End: 08-09-2020 Emergency department patient visit [facility] Christopher [facility] Start: 08-09-2020 End: 08-09-2020 Emergency department patient visit Bakari Christopher [facility] Work Phone: [facility] ED Comment on above: Contusion of right k nee, initial encounter (Primary Dx); Contusion of multiple sites of right shoulder and upper arm, initial encounter Start: 07-23-2017 End: 07-23-2017 Emergency department patient visit NKECHI TORRES [facility] Procedures Date Procedure Procedure Detail Performing Clinician Start: 11-20-2023 Urnls dip stick/tablet rgnt non-auto w/o micrscp Rashaun Amador DO Work Phone: Start: 04-30-2023 Microscopic observation [Identifier] in Cervix by Cyto stain Rashaun Amador DO Work Phone: Start: 02-23-2021 PT ED PATIENT INFORMATION Martha [...] with white cell differential, automated Susan Margarita Guillod Work Phone: Start: 10-14-2020 Complete blood count with white cell differential, manual Susan Margarita Guillod Work Phone: Start: 10-14-2020 COVID-19/INFLUENZA A,B MOLECULAR Susan Margarita Guillod Work Phone: Start: 10-14-2020 Choriogonadotropin ( test) [...] 05-12-2028 Tetanus vaccination Tetanus: Every 1 0yrs [facility] Start: 04-30-2028 Screening for malign ant neoplasm of cervix [facility] Start: 01-22-2024 End: 01-22-2024 Patient encounter procedure 01/22/2024 8:40 AM EDT Consult [facility] [address] [place] [id number] Rashaun Amador, DO [address] [place], [place] [id number] [facility] Start: 11-27-2023 End: 11-27-2023 Patient encounter procedure 11/27/2023 8:30 AM EST Routine [facility] [address] [id number] Rashaun Amador, DO [address] [place] [address] [facility] Start: 11-21-2023 End: 11-21-2023 Professional / ancillary services management 11/21/2023 8:30 AM EST Ancillary Procedure [facility] [address] [place], [place] [address] [id number] [facility] Start: 06-15-2021 Influenza vaccination INFLUENZ A (Season Ended) [facility] Start: 06-15-2020 Influenza vaccination Flu vaccine (# 1) [place], [place] Start: 2014 PAP TESTING PAP TESTING [facility] Start: 2014 Screening for malign ant neoplasm of cervix Cervical cancer screen [place], [place] Start: 2012 DTaP/Tdap/Td vaccine (1 - Tdap) DTaP/Tdap/Td vaccine (1 - Tdap) [place], [place] Start: 2012 Urine microalbumin profile DTAP,TDAP,TD (1 - Tdap) [facility] Start: 2011 Hepatitis C antibody , confirmatory test Hepatitis C Screening [facility] Start: 2011 HEPATITIS C SCREENING HEPATITIS C SC [facility] Start: 2011 HIV SCREENING HIV SCREENING [facility] Start: 2008 HIV screening Verena Valdes [place], [place] Start: 2005 Adolescent depressio n screening assessment [facility] Start: 2004 HPV vaccine (1 - 2-d ose series) HPV vaccine (1 - 2-dose series) [place], [place] Start: 1996 History and physical examination, annual for health maintenance Wellness Visit [facility] Start: 1994 Varicella vaccine (1 of 2 - 2-dose childhood series) Varicella vaccine (1 of 2 - 2-dose childhood series) [place], [place] Start: 1993 Screening for malign ant neoplasm of cervix Pap Smear [facility] PT ED PATIENT INFORMATION PT ED PATIENT INFORMATION Other 02/23/2021 [facility] Immunizations Immunization Date Immunization Notes Care Provider Lennox ramirez 08-18-2023 influenza, seasonal, injectable Julia Nathaiawira [facility] 09-25-2022 influenza, seasonal, injectable SELF REFERRAL [facility] Comment on above: Early/Late Reason: E isaac/Late Reason: Nursing Judgment 01-28-2021 COVID-19, mRNA, LNP- S, PF, 30 mcg/0.3 mL dose; Translations: [Pfizer-BioNTech COVID-19 Vaccine] Luis Carlos Jung [facility] Comment on above: Reason for Medicatio n: Prophylaxis Reason for Medicatio n: Prophylaxis 12-31-2020 COVID-19, mRNA, LNP- S, PF, 30 mcg/0.3 mL dose; Translations: [Pfizer-BioNTech COVID-19 Vaccine] Luis Carlos Jung [facility] Comment on above: Reason for Medicatio n: Prophylaxis Reason for Medicatio n: Prophylaxis 05-12-2018 tetanus toxoid, reduced diphtheria toxoid, and acellular pertussis vaccine, adsorbed; Translations: [Adacel (Tdap)] Luis Carlos Jung [facility] Payers Date Payer Category Payer Medicaid [employer] [employer] [id number] 2022-Present [address] [place] [address] [id number] 2019 Unknown [id number] 2019 Unknown [id number] [id number] 1993 Unknown [id number] 2.16.840.1.515507.3.579.2.173 1993 Unknown [id number] 2.16.840.1.340826.3.579.2.903 1993 Unknown [id number] 2.16.840.1.666759.3.579.2.727 1993 Unknown [id number] 2.16.840.1.392331.3.579.2.727 1993 Unknown [id number] 2.16.840.1.720151.3.579.2.727 1993 Unknown [id number] 2.16.840.1.324506.3.579.2.727 1993 Unknown [id number] 2.16.840.1.469441.3.579.2.727 1993 Unknown [id number] 2.16.840.1.160352.3.579.2.727 1993 Unknown [id number] 2.16.840.1.995813.3.579.2.727 1993 Unknown [id number] 2.16.840.1.464214.3.579.2.727 1993 Unknown [id number] 2.16.840.1.357926.3.579.2.727 1993 Unknown [id number] 2.16.840.1.001090.3.579.2.727 1994 Unknown [id number] 2.16.840.1.954373.3.579.2.72 1993 Unknown [id number] 2.16.840.1.235165.3.579.2. 1993 Unknown [id number] 2.16.840.1.230118.3.579.2. 1993 Unknown [id number] 2.16.840.1.059700.3.579.2. 1993 Unknown [id number] 2.16.840.1.016286.3.579.2. 1993 Unknown [id number] 2.16.840.1.577917.3.579.2 1993 Unknown [id number] 2.16.840.1.908810.3.579.2. 1993 Unknown [id number] 2.16.840.1.987407.3.579.2. 1993 Unknown [id number] 2.16.840.1.220398.3.579.2 1993 Unknown [id number] 2.16.840.1.876069.3.579.2. 1993 Unknown [id number] 2.16.840.1.408371.3.579.2. 1993 Unknown [id number] 2.16.840.1.999123.3.579.2. 1993 Unknown [id number] 2.16.840.1.459738.3.579.2.72 1993 Unknown [id number] 2.16.840.1.009556.3.579.2. 1993 Unknown [id number] 2.16.840.1.703422.3.579.2.1259 1993 Unknown [id number] 2.16.840.1.469560.3.579.2.1259 1993 Unknown [id number] 2.16.840.1.059607.3.579.2.1259 1993 Unknown [id number] 1995 Unknown [id number] 1993 Unknown [id number] 1993 Unknown [id number] Social History Date Type Detail Facility Start: 08-09-2020 End: 10-14-2020 Tobacco smoking status NHIS Current every day smoker [place] Start: 08-09-2020 End: 10-14-2020 Tobacco use and exposure Never used [place] Start: 10-14-2020 Alcohol intake Ex-drinker (finding) [facility] Start: 1995 Sex Assigned At Not on file [place] Exposure to SARS-CoV -2 (event) Not sure [place] Start: 08-09-2020 Cigarettes smoked current (pack per day) - Reported [place] Start: 08-09-2020 Alcohol intake Lifetime non-d val (finding) [place] Start: 08-09-2020 History SDOH Alcohol Frequency 1 [place] Start: 07-06-2021 End: 08-18-2022 Tobacco smoking status Light tobacco smoker (finding) [facility] Sex Assigned At Female [facility] Tobacco [facility] Comment on above: current current denies Start: 06-28-2023 Tobacco smoking status Ex-smoker (fi nding) [facility] Comment on above: current Tobacco smoking status Never [facility] Comment on above: current Tobacco smoking status No Smokin g Status Entered [facility] Start: 04-02-2023 [facility] Start: 1995 Sex Assigned At [facility] Start: 07-03-2023 Gender identity Identifies as female gender (finding) [facility] Start: 07-03-2023 Sexual orientation Heterosexual (fin ding) [facility] Healthcare Goals Date Patient Goal Desired Activity /State Personal health goal Functional Status Date Assessment Result Facility 11-04-2023 Functional Status N/A [facility] 08-18-2023 Functional Status N/A [facility] 07-25-2023 Functional Status N/A [facility] 06-28-2023 Functional Status N/A [facility] 06-14-2023 Functional Status N/A [facility] 05-21-2023 Functional Status N/A [facility] 04-26-2023 Functional Status N/A [facility] 01-31-2023 Functional Status N/A [facility] 09-22-2022 Functional Status N/A [facility] 09-20-2022 Functional Status N/A [facility] 09-19-2022 Functional Status N/A [facility] 09-14-2022 Functional Status N/A [facility] 09-12-2022 Functional Status N/A [facility] 09-08-2022 Functional Status N/A [facility] 09-05-2022 Functional Status Yes [facility] 08-30-2022 Functional Status N/A [facility] 08-22-2022 Functional Status N/A [facility] 08-18-2022 Functional Status N/A [facility] 08-13-2022 Functional Status N/A [facility] 07-26-2022 Functional Status N/A [facility] 07-17-2022 Functional Status N/A [facility] 06-26-2022 Functional Status N/A [facility] 06-18-2022 Functional Status N/A [facility] 05-01-2022 Functional Status N/A [facility] 04-02-2022 Functional Status N/A [facility] Clinical Notes 03-10-2021 to 11-20-2023 Althea SuggsJAQUELINE - 11/20/2023 11:10 AM EST Note Date & Type Note Facility 11-20-2023 History of Present illness Narrative Reason for Appointment: Patient ID: Susan Bro is a 28 y.o. female who presents for Routine Visit Patient presents today for Return OB appointment. Current Medications: has a current medication list which includes the following prescription(s): levothyroxine, citalopram, levothyroxine, levothyroxine, magnesium oxide, mv-min-fe fum-fa-dha, senna-docusate, and venlafaxine xr. Medical History: Active Ambulatory Problems Diagnosis Date Noted No Active Ambulatory Problems Resolved Ambulatory Problems Diagnosis Date Noted No Resolved Ambulatory Problems Past Medical History: Diagnosis Date Depression (CMS/HCC) Dysphagia Low thyroid stimulating hormone (TSH) level Family History Problem Relation Name Age of Onset Diabetes Mother Hypertension Mother Heart disease Maternal Grandfather Social History Tobacco Use Smoking status: Not on file Smokeless tobacco: Not on file Substance Use Topics Alcohol use: Not on file Drug use: Not on file Past Surgical History: Procedure Laterality Date CHOLECYSTECTOMY 2019 Allergies Allergen Reactions Amoxicillin Penicillins Other Reaction(s): Rash Penicillin G Procaine Rash Review of Systems: Review of Systems Constitutional: Negative. HENT: Negative. Eyes: Negative. Respiratory: Negative. Cardiovascular: Negative. Gastrointestinal: Negative. Genitourinary: Negative. Musculoskeletal: Negative. Skin: Negative. Neurological: Negative. All other systems reviewed and are negative. Hematological: Negative. Endocrine: Negative. Allergic/Immunologic: Negative. Objective Physical Exam Constitutional: Appearance: Normal appearance. She is well-developed. Cardiovascular: Rate and Rhythm: Normal rate and regular rhythm. Pulmonary: Effort: Pulmonary effort is normal. Breath sounds: Normal breath sounds. Abdominal: General: Bowel sounds are normal. There is no distension. Palpations: Abdomen is soft. Tenderness: There is no abdominal tenderness. There is no guarding or rebound. Musculoskeletal: General: No swelling. Normal range of motion. Right lower leg: No edema. Left lower leg: No edema. Neurological: Mental Status: She is alert and oriented to person, place, and time. Skin: General: Skin is warm and dry. Psychiatric: Mood and Affect: Mood normal. Behavior: Behavior normal. Vitals and nursing note reviewed. Exam conducted with a pipe changer present. Vitals: There is no height or weight on file to calculate BMI. BP: 110/70 Patient's last menstrual period was 03/19/2023. Assessment/Plan Encounter Diagnosis Name Primary? Third trimester Patient presents today for a routine obstetrics appointment. Patient is currently 35w1d . Patient states she is doing well but has complaints of being tired due to current . Patient has verbalizes frequent movement. labor precautions was discussed/given and patient was instructed to perform kick counts three times a day. Follow Up: Patient is to return to office in 1 week for routine OB appointment. Documented by Althea Suggs LPN on behalf of: Rashaun Amador DO documented in this encounter [facility] 11-04-2023 Evaluation + Plan note Diagnostic Tests PendingUrine Culture 11/04/23 [facility] 11-04-2023 Hospital Discharge instructions Follow Up Care 11/04/2023 07:55:34 With:Rashaun AMADOR Address: [address] [place] [address] Business (1) When:11/06/2023 Comments:Call for any problems.Appointment has already been scheduledCall physician if symptoms worsenPlease call if you need to rescheduleReturn for contractions closer, longer, harderReturn for decreased movementReturn if ruptured membranes or vaginal bleeding [facility] 08-23-2023 Evaluation + Plan note Diagnostic Tests PendingT3 Total 08/23/23 [facility] 08-18-2023 Note The following Any garnett Education Materials have been given to the patient: EducationMaterial [facility] 08-18-2023 Hospital Discharge instructions Patient Education 08/18/2023 08:14:46 Second Trimester of , Skcs-zn-Pjeg Second Trimester of The second trimester of [...] Follow these instructions at home: Medicines Take dolx-nxd-uazuawc and prescription medicines only as told by [...] a counselor. Where to find more information [place] Association: americanpregnancy.org [place] [employer]nec[employer]: www.acog.org Office [...] provider. Document Revised: 03/09/2021 Document Reviewed: 01/13/2021 [employer] Patient Education 2022 [employer]. [facility] 07-25-2023 Evaluation + Plan note Extrac [...] Diagnostic Tests Pending * Urine Culture 07/25/23 [facility]10-11-2023 Hospital Discharge instructions Patient Education 07/25/2023 [...] to keep your urine pale yellow. Take itak-gwk-tkddwof and prescription medicines only as told by [...] provider. Document Revised: 06/14/2021 Document Reviewed: 06/14/2021 [employer] Patient Education 2022 [employer]. Follow Up Care 07/25/2023 08:14:26 With:Luis Carlos Jung Address: [address] [place] [address] [facility] (1) When:07/28/2023 09:56:27 [facility]09-14-2023 Evaluation + Plan note Diagnostic Tests Pending * Urine Culture 06/28/23 [facility]09-14-2023 Hospital Discharge instructions Patient Education 06/28/2023 11:39:14 Urinary Tract Infection, Adult, Ullv-ik-Ufsa Urinary Tract Infection, Adult A urinary tract [...] Follow these instructions at home: Medicines Take lnue-xfp-pxuvzkz and prescription medicines only as told by [...] provider. Document Revised: 05/13/2021 Document Reviewed: 05/13/2021 [employer] Patient Education 2022 [employer]. 06/28/2023 11:39:14 Urinary Tract Infection, Adult, Vphl-rq-Swxd Urinary Tract Infection, Adult A urinary tract [...] Follow these instructions at home: Medicines Take owjg-zfj-yefsvuj and prescription medicines only as told by [...] provider. Document Revised: 05/13/2021 Document Reviewed: 05/13/2021 [employer] Patient Education 2022 [employer]. Follow Up Care 06/28/2023 10:22:58 With:Fabiana MARION, Luis Carlos Byrd, SAMPSON Address: [address] [place] [address] [place] [id number]- When: Unknown [facility] 08-31-2023 Evaluation + Plan noteExtracted from: Title:ED Note Author:Jos Ugalde PA-C te:06/14/23 1. Abdominal pain (R10.9: Un specified abdominal pain) Orders: ABO/Rh Automated Diff Basic Metabolic Panel Beta hCG Quantitative CBC w/ Auto Diff eGFR Extra Blue Tube Extra SST Tube Hepatic Function Panel Lipase Level UA With Cult Reflex US 1st Trimester [facility]08-08-2023 Hospital Discharge instructions Patient Education 05/21/2023 23:23:44 Nonspecific Chest Pain, Adult, Hxpe-ks-Yrbs Nonspecific Chest Pain Chest pain can be [...] Follow these instructions at home: Medicines Take irsh-asv-axyvgdv and prescription medicines only as told by [...] ?Eating a heart-healthy diet. A diet and nutrition aide (dietitian) can help you to learn healthy [...] provider. Document Revised: 12/15/2021 Document Reviewed: 12/15/2021 [employer] Patient Education 2022 [employer]. 05/21/2023 23:23:44 Nausea and Vomiting, Adult, Mfpl-xj-Djyj Nausea and Vomiting, Adult Nausea is feeling [...] fruit juice). ?Low-calorie sports drinks. Eat bland, gion-xw-geppqo foods in small amounts as you are able, such as: ?Bananas. ?Applesauce. ?Rice. ?Low-fat (lean) meats. ?Garey. ?Crackers. Avoid drinking fluids that have a lot of sugar or caffeine in them. This includes energy drinks, sports drinks, and soda. Avoid alcohol. Avoid spicy or fatty foods. General instructions Take emxz-hvj-dyufgds and prescription medicines only as told by your doctor. Drink enough fluid to keep your pee (urine) pale yellow. Wash your hands often with soap and water for at least 20 seconds. If you cannot use soap and water, use hand fashion supervisor. Make sure that everyone in your [...] your doctor about eating and drinking. Take abhk-zgv-xzwxfev and prescription medicines only as told by your doctor. Contact your doctor if your symptoms get worse or you have new symptoms. Keep all follow-up visits. This information is not intended to replace advice given to you by your health care provider. Make sure you discuss any questions you have with your health care provider. Document Revised: 04/07/2022 Document Reviewed: 04/07/2022 [employer] Patient Education 2022 [employer]. 05/21/2023 23:23:44 Abdominal Pain During , Prkg-ei-Owvc Abdominal Pain During Belly (abdominal) pain is [...] keep your pee (urine) pale yellow. Take xqye-ngh-hirzpje and prescription medicines only as told by [...] provider. Document Revised: 06/14/2021 Document Reviewed: 06/14/2021 [employer] Patient Education 2022 [employer]. Follow Up Care 05/21/2023 20:38:52 With:Luis Carlos Jung Address: [address] [facility] [place] [address]- Business (1) When:05/24/2023 Comments:Take the Pepcid once daily until you have completed the course. You can use the Zofran every 6 hours as needed for nausea and vomiting. Please follow-up with your primary care doctor next 2 to 3 days. Please return to the ED for any new or worsening symptoms. [facility]08-07-2023 Evaluation + Plan noteExtracted from: Title:ED [...] day(s), # 15 cap(s), Refills(s) 0, Pharmacy: [facility], 162.6, cm, 05/21/23 20:50:00 EDT, Height/Length Dosing, 75.3, kg, 05/21/23 20:50:00 EDT, Weight Dosing famotidine, 20 mg = 2 mL, Soln-IV, IV Push, Once, Stop date 05/21/23 21:00:00 EDT, STAT, Start date 05/21/23 21:00:00 EDT, 05/21/23 21:00:00 EDT famotidine, 20 mg = 1 tab(s), Oral, Daily, # 14 tab(s), Refills(s) 0, Pharmacy: [facility], 162.6, cm, 05/21/23 20:50:00 EDT, Height/Length Dosing, 75.3, kg, 05/21/23 20:50:00 EDT, Weight Dosing ondansetron, 4 mg = 2 mL, Injection, IV Push, Once, Stop date 05/21/23 21:00:00 EDT, STAT, Start date 05/21/23 21:00:00 EDT, 05/21/23 21:00:00 EDT ondansetron, 4 mg = 1 tab(s), Oral, q8hr, # 12 tab(s), Refills(s) 0, Pharmacy: [facility], 162.6, cm, 05/21/23 [...] UA With Cult Reflex US 1st Trimester [facility]07-17-2023 Evaluation + Plan note Diagnostic Tests Pending * PAP [id number] 04/30/23 * Urine Culture 04/30/23 [facility]07-17-2023 Evaluation + Plan note Diagnostic Tests Pending * RPR with Conf Rfx 04/30/23 * HIV Screen 4th Generation wRfx 04/30/23 * Rubella Antibody IgG 04/30/23 * Hepatitis B Surface Antigen 04/30/23 [facility]07-13-2023 Evaluation + Plan noteExtracted from: Title:ED Note Author:Jos Ugalde PA-C te:04/26/23 Abdominal pain (R10.9: Unspe cified abdominal pain) (Z34.90: Encounter for supervision of normal , unspecified, unspecified trimester) Orders: Beta hCG Quantitative Extra Lav Tube Extra SST Tube US 1st Trimester US Transvaginal [facility]07-13-2023 Hospital Discharge instructions Patient Education 04/26/2023 [...] to keep your urine pale yellow. Take kdfz-cvy-ojystzo and prescription medicines only as told by [...] provider. Document Revised: 06/14/2021 Document Reviewed: 06/14/2021 [employer] Patient Education 2022 Senior[employer]. Follow Up Care 04/26/2023 08:52:22 With:Luis Carlos Jung Address: [address] [place] [address]- Business (1) When:04/29/2023 10:58:02 [facility]04-19-2023 Evaluation + Plan noteExtracted from: Title:ED [...] Head eGFR Oxygen Therapy PT & PTT [facility]04-19-2023 Hospital Discharge instructions Patient Education 01/31/2023 [...] Follow these instructions at home: Medicines Take szwd-jtp-nyjqcjx and prescription medicines only as told by your health care provider. Ask your health care provider if the medicine prescribed to you: ?Requires you to avoid driving or using heavy machinery. ?Can cause constipation. You may need to take these actions to prevent or treat constipation: ?Drink enough fluid to keep your urine pale yellow. ?Take tuos-ltw-hjnllef or prescription medicines. ?Eat foods that are [...] provider. Document Revised: 01/23/2020 Document Reviewed: 11/13/2019 [employer] Patient Education 2022 Senior[employer]. Follow Up Care 01/31/2023 09:42:02 With:THANG MILLAN Address: [address] [place], [place] [id number] [facility] (1) When:02/03/2023 11:57:07 Comments:Call the [...] fever, or any new or worsening symptoms. [facility]12[facility]16[facility]22 [facility] Comment: Electronically Signed By: Luis Carlos Jung MD\.br\Date and Time Signed: 09/29/22 09:25 [id number] [facility] Comment on above:Result Comment: Electronically Signed By: Luis Carlos Jung MD\.br\Date and Time Signed: 09/29/22 09:25 [id number] NoteThe following Patient Education Materials have been given to the patient: [facility]12-09-2022 NoteThe following Patient Education Materials have been given to the patient: [facility]12-09-2022 Hospital Discharge instructions Follow Up Care 09/22/2022 15:11:14 With:Luis Carlos Jung Address: [address] [place] [id number] Business (1) When:09/24/2022 20:30:00 Comments:Appointment has already been scheduledCall for any problems.Call for fever > 100.5 FCall for severe abdominal painCall physician for heavy vaginal bleedingCall physician if symptoms worsenReturn for contractions closer, longer, harderReturn for decreased movementReturn if ruptured membranes or vaginal bleedingCall at 7:30 pm Sunday to confirm induction at 8:30 [facility]12-07-2022 NoteThe following Patient Education Materials have been given to the patient: [facility]12-06-2022 NoteThe following Patient Education Materials have been given to the patient: [facility]12-06-2022 Hospital Discharge instructions Follow Up Care 09/19/2022 01:24:08 With:Luis Carlos Jung Address: [address] [place] [id number] Business (1) When:09/20/2022 Comments:Appointment has already been scheduledCall Dr if fever>100.5 F, heavy bleedingCall for any problems.Call for severe abdominal painCall physician for heavy vaginal bleedingCall physician if symptoms worsenReturn for contractions closer, longer, harderPlease call if you need to rescheduleReturn for decreased movementReturn if ruptured membranes or vaginal bleeding [facility]12-01-2022 NoteThe following Patient Education Materials have been given to the patient: [facility] Hospital Discharge instructions Patient Education 09/14/2022 11:56:10 Sinus Headache, Vtii-ds-Zvuk Sinus Headache A sinus headache happens when [...] on the bottle or box. Medicines Take bfms-awd-woujfpv and prescription medicines only as told by [...] face, forehead, ears, or upper teeth. Take afhg-hgq-hadaqjt and prescription medicines only as told by your doctor. If told, apply a warm, moist washcloth to your face. This can help to lessen pain. This information is not intended to replace advice given to you by your health care provider. Make sure you discuss any questions you have with your health care provider. Document Released: 01/31/2012 Document Revised: 09/13/2018 Document Reviewed: 07/12/2018 [employer] Patient Education 2020 tu.nr Follow Up Care 09/14/2022 09:13:06 With:Luis Carlos Jung Address: [address], [facility] [address] [place] [address] [facility] (1) When:09/20/2022 Comments:Return if ruptured membranes or vaginal bleedingReturn for decreased movementReturn for contractions closer, longer, harderCall physician if symptoms worsenCall for severe abdominal painCall for fever > 100.5 F Drink 8-10 glasses of water/day Use SUDAFED, TYLENOL AND BENADRYL as previouslydirected by Dr Fabiana Longoria [facility]11-29-2022 NoteThe following Patient Education Materials have been given to the patient: [facility] Hospital Discharge instructions Patient Education 09/12/2022 20:39:28 Third Trimester of , Iymh-yv-Ntuk Third Trimester of The third trimester is from week 28 through week 40 (months 7 through 9). This trimester is when your unborn baby (fetus) is growing very fast. At the end of the ninth month, the unborn baby is about20 inches in length. It weighs about 6 10 pounds. Follow these instructions at home: Medicines Take chbu-esv-dwboxvq and prescription medicines only as told by [...] 12/26/2010 Document Revised: 01/22/2020 Document Reviewed: 11/06/2017 [employer] Patient Education 2020 [employer] Inc. Follow Up Care 09/12/2022 19:44:10 With:Luis Carlos Jung Address: [facility] [address] [address] [facility] (1) When:09/20/2022 Comments:Appointment has already been scheduledCall Dr if fever>100.5 F, heavy bleedingCall for any problems.Call for severe abdominal painCall physician for heavy vaginal bleedingCall physician if symptoms worsenPlease call if you need to rescheduleReturn for contractions closer, longer, harderReturn for decreased movementReturn if ruptured membranes or vaginal bleeding [facility]11-25-2022 NoteThe following Patient Education Materials have been given to the patient: [facility] Hospital Discharge instructions Follow Up Care 09/08/2022 08:14:23 With:Luis Carlos Fabiana Address: [facility] [address] [address]- [employer] (1) When:09/11/2022 Comments:Return for contractions closer, longer, harderReturn for decreased movementReturn if rupturedmembranes or vaginal bleeding [facility]11-23-2022 Hospital Discharge instructions Patient Education 09/05/2022 [...] the coronavirus come from? In September 2019, [place] told the World Health Organization (WHO) of several cases of lung disease (human respiratory illness). These cases were linked to an open seafood and livestock market in the city of [facility]. The link to the seafood and [...] and virus naming World Health Organization (WHO): www.who.int/emergencies/diseases/lnyvr-ilqekrtzhkl-5676/technical-g uidance/mkvxzp-tgo-ivhbgtupzzj-disease-(covid-2019)-kta-pht-ayosa-zqgn-wtulua-vt Who is at risk for complications from [...] relieve his or her symptoms by using rpmi-nts-bsldfdz medicines that treat sneezing, coughing, and runny [...] water are not available, use alcohol-based hand fashion supervisor. Avoid touching your face, mouth, nose, [...] Prevention (CDC): www.cdc.gov/coronavirus/2019-ncov/travelers/index.html World Health Organization (WHO): www.who.int/emergencies/diseases/vlwzj-pbaxxwaizsv-8293/travel-advice Know the risks and take action to [...] water are not available, use alcohol-based hand fashion supervisor. Cough or sneeze into a tissue, [...] in hot, soapy water or use a health promotion educator. Air-dry your dishes. Wash laundry in hot [...] Health Organization (WHO) Information and news updates: www.who.int/emergencies/diseases/dxwny-imqcbhgujzd-6555 Coronavirus health topic: www.who.int/health-topics/coronavirus Questions and answers on COVID-19: www.who.int/news-room/q-a-detail/y-p-jzejjzjimaudt Global tracker: who.[employer] [place] Academy [employer] (AAP) Information for families: www.healthychildren.org/[place]/health-issues/conditions/chest-lungs/Pages /8350-Lbytb-Swnlmrdtupm.aspx The coronavirus situation is changing rapidly. Check [...] 01/27/2020 Document Revised: 01/27/2020 Document Reviewed: 01/27/2020 [employer] Patient Education 2020 [employer] 09/05/2022 22:13:40 COVID-19 COVID-19 COVID-19 is a [...] to fight infection (immunocompromised). Live in a residential or long-term care facility. Have a long-term [...] managed at home with rest, fluids, and wpme-opv-tchubfl medicines. Treatment for a serious infection usually [...] are safe for you. General instructions Take absx-grb-jdyjcgk and prescription medicines only as told by [...] water are not available, usean alcohol-based hand fashion supervisor. ?Avoid touching your mouth, face, eyes, [...] water are not available, use alcohol-based hand fashion supervisor. Stay away from other members of [...] have a weak immunity, live in a residential, or have chronic disease. There is no [...] 11/06/2019 Document Revised: 02/26/2020 Document Reviewed: 11/06/2019 [employer] Patient Education 2020 [employer] Follow Up Care 09/05/2022 20:08:29 With:Luis Carlos Jung Address: [facility] [place] [id number] Business (1) When:09/08/2022 21:42:10 Comments:Use the albuterol inhaler 2 puffs every 4 hours for the next 2 to 3 days, you can use the Zofran every 6 hours as needed for nausea and vomiting. Please follow-up with your primary care doctor in thenext 2 to 3 days. Please return to the ED for any new or worsening symptoms. With:THANG MILLAN Address: [address] [place], [place] [id number] Business (1) When:09/08/2022 21:42:06 [facility]11-22-2022 Evaluation + Plan noteExtracted from: Title:ED [...] Nausea/Vomiting, # 12 tab(s), Refills(s) 0, Pharmacy: [facility], 163, cm, 09/05/22 [...] Therapy PT & PTT Rapid COVID Antigen ([facility]) Saline Lock Insert Troponin 0 Hr. XR Chest Single View Future Appointments Appointment Date:09/06/2022 07:00:00 AM Scheduled Provider: Location[facility] Appointment Type:Outpatient COVID Testing [facility]11-21-2022 Evaluation + Plan note Diagnostic Tests Pending * Group B Streptococcus colonization by PCR 09/04/22 [facility]11-17-2022 NoteThe following Patient Education Materials have been given to the patient: [facility] Discharge instructions Patient Education 08/31/2022 00:56:47 Third Trimester of , Neuz-uv-Tsgn Third Trimester of The third trimester is from week 28 through week 40 (months 7 through 9). This trimester is when your unborn baby (fetus) is growing very fast. At the end of the ninth month, the unborn baby is about20 inches in length. It weighs about 6 10 pounds. Follow these instructions at home: Medicines Take uucb-ivn-vbmejvf and prescription medicines only as told by [...] 12/26/2010 Document Revised: 01/22/2020 Document Reviewed: 11/06/2017 [employer] Patient Education 2020 [employer]. Follow Up Care 08/30/2022 21:31:53 With:Luis Carlos Jung Address: [address] [address] [facility] (1) When:09/04/2022 Comments:Call for any problems.Call for severe abdominal painCall physician for heavy vaginal bleedingReturnfor contractions closer, longer, harderReturn for decreased movementReturn if ruptured membranes or vaginal bleeding [facility]11-08-2022 Hospital Discharge instructions Follow Up Care 08/22/2022 14:58:59 With:Dr. 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 [facility]11-04-2022 Evaluation + Plan note Diagnostic Tests Pending * Urine Culture 08/18/22 [facility]11-04-2022 Hospital Discharge instructions Follow Up Care 08/18/2022 03:47:49 With:Luis Carlos Jung Address: [address], [facility] [address] [place] [address] Business (1) When:08/21/2022 08:45:00 Comments:Appointment has already been scheduled, please keep scheduled apptCall for any problems.Call physician if symptoms worsen [facility]10-30-2022 Hospital Discharge instructions Patient Education 08/13/2022 [...] 10/31/2007 Document Revised: 10/21/2019 Document Reviewed: 11/09/2016 [employer] Patient Education 2020 [employer] 08/13/2022 19:55:11 Monitoring Overview Monitoring Overview [...] 09/21/2003 Document Revised: 06/25/2018 Document Reviewed: 04/30/2017 [employer] Patient Education 2020 [employer]. Follow Up Care 08/13/2022 17:29:42 With:Luis Carlos Jung Address: [address] [place] [id number] [facility] (1) When:1 to 2 days Comments:Call for any problems.Return for contractions closer, longer, harderReturn for decreased movementReturn if ruptured membranes or vaginal bleeding [facility]10-13-2022 Hospital Discharge instructions Follow Up Care 07/27/2022 01:12:54 With:Dr. Jung [phone] Address:Unknown When:09/24/2022 20:30:00 Comments:Call for any problems.Return if ruptured membranes or vaginal bleedingReturn for decreased movementcontractions every 5 minutes lasting 45 seconds for an sunday night at 7:30 PM to assure bed availability for induction [facility]10-12-2022 Hospital Discharge instructions Patient Education 07/26/2022 [...] Follow these instructions at home: Medicines Take zhev-arm-pawynyh and prescription medicines only as told by [...] as fried or sweet foods. ?Take an tzgx-jrf-euhyfpj or prescription medicine for constipation. If you [...] 12/28/2009 Document Revised: 05/28/2019 Document Reviewed: 11/11/2018 [employer] Patient Education 2020 [employer]. Follow Up Care 07/26/2022 07:56:25 With:Luis Carlos Jung Address: [address] [place], [place] [id number] [facility] (1) When:08/07/2022 07:45:00 [facility]10-03-2022 Evaluation + Plan noteExtracted from: Title:ED Note Author:Hi Carmona PA-C te:07/17/22 UTI (urinary tract infection ) (N39.0: Urinary tract infection, site not specified) Orders: cephalexin, 500 mg = 1 cap(s), Oral, q12hr, X 5 day(s), # 10 cap(s), Refills(s) 0, Pharmacy: [facility], 162.5, cm, 07/17/22 9:09:00 EDT, Height/Length Dosing, 80, kg, 07/17/22 9:09:00 EDT, Weight Dosing Patient Specific Meds, Each, Misc, Once, Stop date 07/17/22 9:10:34 EDT, Physician Stop, 07/17/22 9:10:34 EDT Influenza A&B Ag Rapid COVID Antigen ([facility]) UA With Cult Reflex [facility]10-03-2022 Hospital Discharge instructions Patient Education 07/17/2022 [...] 01/26/2012 Document Revised: 01/23/2020 Document Reviewed: 09/04/2019 [employer] Patient Education 2020 [employer]. 07/17/2022 09:55:44 Urinary Tract Infection, Adult Urinary [...] Treatment for this condition includes: Antibiotic medicine. Voby-eoy-hbpwmtq medicines to treat discomfort. Drinking enough water [...] Follow these instructions at home: Medicines Take tquq-qoq-nbvuixq and prescription medicines only as told by [...] 07/11/2006 Document Revised: 09/18/2019 Document Reviewed: 04/10/2019 [employer] Patient Education 2020 [employer]. Follow Up Care 07/17/2022 09:04:38 With:Luis Carlos Jung Address: [address] [address] Business (1) When:07/20/2022 09:46:49 With:THANG MILLAN Address: [address] [place] [address] Business (1) When:07/20/2022 09:46:41 Comments:Follow-up with your primary care provider in 3 to 5 days. If symptoms worsen, do not improve, or new symptoms arise please report back to emergency department for further evaluation. [facility]09-14-2022 Evaluation + Plan note Diagnostic Tests Pending * RPR with Conf Rfx 06/28/22 [facility]09-12-2022 Hospital Discharge instructions Patient Education 06/26/2022 [...] 09/21/2003 Document Revised: 06/25/2018 Document Reviewed: 04/30/2017 [employer] Patient Education 2020 [employer] 06/26/2022 21:35:59 Form - Movement Counts [...] 10/31/2007 Document Revised: 10/21/2019 Document Reviewed: 11/09/2016 [employer] Patient Education 2020 [employer]. Follow Up Care 06/26/2022 20:41:33 With:Luis Carlos Jung Address: [facility] [address] [address] Business (1) When:07/03/2022 07:45:00 Comments:Call for any problems.Please call if you need to rescheduleReturn for decreased movement [facility]09-05-2022 Hospital Discharge instructions Follow Up Care 06/18/2022 23:33:38 With:Luis Carlos Jung Address: [facility] [address] [address] Business (1) When:5 to 7 days Comments:Appointment has already been scheduledCall for any problems.Call for fever > 100.5 FCall for severe abdominal painCall physician for heavy vaginal bleedingPlease call if you need to rescheduleReturn for contractions closer, longer, harderReturn for decreased movementReturn if ruptured membranes or vaginal bleeding [facility]07-18-2022 Hospital Discharge instructions Follow Up Care 05/01/2022 17:08:54 With:Luis Carlos Jung Address: [facility] [address] [address] Business (1) When:05/09/2022 Comments:Return if ruptured membranes or vaginal bleedingReturn for contractions closer, longer, harderCall physician if symptoms worsenCall physician for heavy vaginal bleedingCall for severe abdominal painCall for fever > 100.5 FCall for any problems. drink more fluids including gatorade, take milk of magnesia twice /day until yo u have bowel movements, benefiber daily [facility]06-19-2022 Evaluation + Plan note Diagnostic Tests Pending * Urine Culture 04/02/22 [facility]06-19-2022 Hospital Discharge instructions Patient Education 04/02/2022 10:22:48 Second Trimester of , Mryc-jg-Itbu Second Trimester of The second trimester is [...] Follow these instructions at home: Medicines Take nceq-alh-nrzpzir and prescription medicines only as told by [...] 12/26/2010 Document Revised: 01/23/2020 Document Reviewed: 11/06/2017 [employer] Patient Education 2020 [employer]. 04/02/2022 10:22:48 Vaginal Bleeding During , Second [...] says that this is safe. Medicines Take imcc-fas-mykoqtx and prescription medicines only as told by [...] 07/11/2006 Document Revised: 01/20/2020 Document Reviewed: 01/03/2018 [employer] Patient Education 2019 [employer] Follow Up Care 04/02/2022 06:00:26 With:Dr. Jung [phone] Address:Unknown When:2 to 3 days Comments:Call for any problems.Call physician if symptoms worsen [facility]06-09-2022 Hospital Discharge instructions Patient Education 03/23/2022 20:39:21 Second Trimester of , Buln-bh-Ebzt Second Trimester of The second trimester is [...] Follow these instructions at home: Medicines Take dlpz-rdq-rgkgvnp and prescription medicines only as told by [...] 12/26/2010 Document Revised: 01/23/2020 Document Reviewed: 11/06/2017 [employer] Patient Education 2020 [employer]. 03/23/2022 20:39:21 First Trimester of , Celb-vu-Emmy First Trimester of The first trimester of [...] Follow these instructions at home: Medicines Take swbq-wbv-nqlacjv and prescription medicines only as told by [...] Move your legs often if you must cutter grinder one placefor a long time. Avoid heavy [...] grounds. You are around people who have Georgian measles, fifth disease, or chickenpox. You have [...] 03/19/2009 Document Revised: 01/22/2020 Document Reviewed: 10/09/2017 [employer] Patient Education 2020 [employer] 03/23/2022 20:39:21 Abdominal Pain During , Fxfz-ym-Hknu Abdominal Pain During Belly (abdominal) pain is [...] keep your pee (urine) pale yellow. Take upee-ufu-gjyvxhw and prescription medicines only as told by [...] 09/19/2010 Document Revised: 01/19/2020 Document Reviewed: 01/03/2018 [employer] Patient Education 2020 [employer] Follow Up Care 03/23/2022 19:35:57 With:Luis Carlos Jung Address: [address] [address] Business (1) When:03/27/2022 10:00:00 Comments:Call for any problems. Call [facility] first, ask to speak directly to Dr. Jung before heading to hospital unless an emergency. Call for severe abdominal pain or worsening pain.Return if vaginal bleedingor ruptured membranes.Wear belly band as much as possible, especially as your belly grows in . [facility]05-04-2022 Evaluation + Plan note Diagnostic Tests Pending * RPR with Conf Rfx 02/15/22 * HIV Screen 4th Generation wRfx 02/15/22 * Rubella Antibody IgG 02/15/22 * Hepatitis B Surface Antigen 02/15/22 * Urine Culture 02/15/22 [facility]06-18-2021 NoteHNO ID: [id number] Author: Bert Negrete, DO Service: ? Author Type: Fellow Type: Progress Notes Filed: 04/01/2021 9:15 AM Note Text: [facility] [address] [place], [place] [address] Martha Webb (DrHerminia) [address] [facility] [address] PCP: Thang Millan NP Accompanied by: Mother CC: Headache HPI: Susan Bro is a 25 year old year old, woman who is here for the evaluation and management of the patient's Headache. She has significant medical history including: nausea vomiting Headache 1 This is the current headache. Onset: - Teenager, progressively worsened. Denies precipitating factors. Severity: 10 Location: can be all over. Quality/Description: throbbing [...] bed and continue this dose - rizatriptan (MAXALT-SCALE TANK OPERATOR) 10 mg disintegrating tablet Take 1 [...] Score (ran (more content not included)... [facility]06-10-2021 NoteHNO ID: [id number] Author: RT Oliva(R) Service: Nuclear Medicine Author Type: Dental Equipment Repairer Type: Progress Notes Filed: 03/24/2021 9:39 AM [...] safety can be found using this link: [email or web address] SIGNATURE: Karen Vinson RT(R) PATIENT NAME: Susan Bro DATE: March 24, 2021 TIME: 9:38 AM PAGER/CONTACT #:[facility]05-27-2021 NoteHNO ID: [id number] Author: Martha Webb MD Service: ? Author Type: Physician Type: Progress Notes Filed: 03/10/2021 12:03 PM Note Text: This note was created using Medical Connectionsriter. Subjective Susan Bro is a 25 year [...] biliary ductal dilatation is (more content not included)...[facility] Diagnosis Third trimester state, incidental documented in this encounter [facility] Narrative No data available for this section [facility] No data available for this section [facility] No data available for this section [facility] Summary Purpose Family History No Family [...] No Family History Records Found Advance Directives Documents on File Type Date Recorded Patient Construction Area Manager Expl anation Advance Directives and Livin g Will 10/14/2020 10:22 AM Documents on File Type Date Recorded Patient Construction Area Manager Expl anation ACP-Advance Directive ACP-Power of Adult Literacy Instructor Discharge Instructions * Discharge Instr - Care Coordination* Andra Schmid RN - 10/14/2020 11:43 AM [facility] Primary [facility] Trust the experts at [facility] to meet your healthcare needs. When you make an appointment with [facility], it's the start of a long-lasting partnership that's committed to your health. We provide the very best prevention, wellness and illness care, and give you access to the advanced medical services and expert treatment available at [facility]. Please note that the provider listed below is accepting patients in your area. [place]: [address] [phone] MD Debby Lala MD Christina Spring, [place] For the most up-to-date information on a care provider in your community, use the Find a Doctor tool on [employer] [facility] Primary Care * Attachments The following attachments cannot be sent through Care Everywhere. * Vertigo (Macanese) * Arik Maneuver: Vertigo: Exercises (Macanese) documented in this encounter* Instructions* Bakari Valente [...] be sent through Care Everywhere. * Bruises (Macanese) * Contusion (Macanese) documented in this encounter Assessments Diagnosis Vertigo- Primary Dizziness and giddiness Diagnosis Contusion of right knee, initial encounter Contusion of multiple sites of right shoulder and upper arm, initial encounter Additional Source Comments INFORMATION SOURCE (unrecogn ized section and content) DATE CREATED AUTHOR 04/09/2018 [facility] DATE CREATED AUTHOR AUTHOR'S ORGANIZ ATION 08/10/2020 [facility] DATE CREATED AUTHOR AUTHOR'S ORGANIZ ATION 09/07/2020 [facility] DATE CREATED AUTHOR AUTHOR'S ORGANIZ ATION 10/20/2020 [facility] DATE CREATED AUTHOR AUTHOR'S ORGANIZ ATION 03/18/2021 [facility] DATE CREATED AUTHOR AUTHOR'S ORGANIZ ATION 11/15/2021 [facility] DATE CREATED AUTHOR AUTHOR'S ORGANIZ ATION 08/25/2023 [facility] DATE CREATED AUTHOR AUTHOR'S ORGANIZ ATION 11/21/2023 [facility] EPIC Reason for Visit (unrecogniz ed section and content) Reason Comments Dizziness Reason Comments Knee Pain right knee pain, 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 denies hitting head or any LOC Shoulder Pain rt shoulder, fell ov er dust guzman onto her right side. Reason Comments Routine Visit Susan Griffiths PA-C - 10/14/2020 10:44 AM Amena Cantrell RN - 10/14/2020 10:32 AM EST ED Notes (unrecognized secti on and content) [facility] ED Note: NAME: Susan Bro 24 y.o. CSN: [id number] PCP: Physician No History: Chief Complaint: Dizziness [...] file Gets together: Not on file Attends latter-day service: Not on file Active member of [...] does have reproducible vertigo with position changes. Miewvm-ew-pbrn maneuvers are intact without dysmetria. There is negative Romberg sign. There was no ataxia on ambulation. Psychiatric: Mood and Affect: Mood normal. Behavior: Behavior normal. Thought Content: Thought content normal. Laboratory & Radiological Imaging (if done): Labs Reviewed URINALYSIS - Abnormal; Notable for the following components: Result Value Clarity, Urine Cloudy (*) Specific [place] 1.028 (*) pH, Urine 8.0 (*) Protein, [...] at the following links: For Healthcare Providers: https://www.fda.gov/media/568136/download For Patients: https://www.fda.gov/media/130433/download HCG URINE, QUALITATIVE - Normal CBC AND DIFFERENTIAL Narrative: The following orders were created for panel order CBC w/ Diff. Procedure Abnormality Status --------- ------ CBC Auto Differential[[id number]] Abnormal Final result Please view results for these tests on the individual orders. HCG URINE, QUALITATIVE URINALYSIS CT Head Or Brain Without Contrast Final Result 1. No acute intracranial hemorrhage, focal edema or mass effect. Workstation ID: [id number] EKG: Normal sinus rhythm with sinus arrhythmia RATE: 74 AXIS: Normal axis INTERVALS: [place] interval of 178 ms, QRS duration of [...] Antivert. She is referred to follow-up with [facility] or [place] that she does not currently have a [...] needed for dizziness . Susan Griffiths Physicians Roll Grinder Operator [facility] Emergency Department Susan Griffiths PA-C 10/14/20 1203 Special isolation precautions are in place with signage outside this patient's room. This assistant child care teacher performs hand hygiene and enters the patient [...] or prosecute any alcohol or drug abuse patient.[facility] Care Team (unrecognized sect ion and content) Personnel Name: THANG MILLAN CNP Address: [address] [place] [address] Personnel Name: THANG MILLAN CNP Address: [address] [place] [address] Personnel Name: THANG MILLAN CNP Address: [address] [place] [address] Personnel Name: THANG MILLAN CNP Address: [address] [place] [address] Personnel Name: THANG MILLAN CNP Address: [address] [place] [address] Personnel Name: THANG MILLAN CNP Address: [address] [place] [address] Personnel Name: THANG MILLAN CNP Address: [address] [place] [address] Personnel Name: THANG MILLAN CNP Address: [address] [place] [address] Personnel Name: THANG MILLAN CNP Address: Address: [address] [place] [address] Personnel Name: THANG MILLAN CNP Address: Address: [address] [place] [address] [place] Personnel Name: THANG MILLAN CNP Address: Address: [address] [place] [address]- [place] Personnel Name: HTANG MILLAN CNP Address: Address: [address] [place] [address] [place] Personnel Name: THANG MILLAN CNP Address: Address: [address] [place] [address]- [place] Personnel Name: THANG MILLAN CNP Address: Address: [address] [place] [address]- [place] Personnel Name: THANG MILLAN CNP Address: Address: [address] [place] [address] [place] Personnel Name: THANG MILLAN CNP Address: Address: [address] [place] [address]- [place] Personnel Name: THANG MILLAN CNP Address: Address: [address] [place] [address]- [place] Personnel Name: THANG MILLAN CNP Address: Address: [address] [place] [address]- [place] Personnel Name: THANG MILLAN CNP Address: Address: [address] [place] [address]- [place] Personnel Name: THANG MILLAN CNP Address: Address: [address] [place] [address]- [place] Personnel Name: THANG MILALN CNP Address: Address: [address] [place] [address]- [place] Personnel Name: THANG MILLAN CNP Address: Address: [address] [place] [address]- [place] Personnel Name: THANG MILLAN CNP Address: Address: [address] [place] [address]- [place] Personnel Name: THANG MILLAN CNP Address: Address: [address] [place] [address]- [place] Personnel Name: THANG MILLAN CNP Address: Address: [address] [place] [address]- [place] Personnel Name: THANG MILLAN CNP Address: Address: [address] [place] [address] [place] Personnel Name: Luis Carlos Jung MD Address: Address: [address] [place] [address] [place], [address] [address] [place] Personnel Name: Luis Carlos Jung MD Address: Address: [facility] [address] [facility] [address] [place] [address] [place] Personnel Name: Luis Carlos Jung MD Address: Address: [address], [facility] [address] Personnel Name: Luis Carlos Jung MD Address: Address: [facility] [address] [facility] [address] Personnel Name: Luis Carlos Jung MD Address: Address: [facility] [address], [facility] [address] Personnel Name: Rashaun AMADOR DO Address: Address: [address] , [place] Herm[place] Lopez[address] Personnel Name: NONE, XXXX Address: Address: [facility] Personnel Name: LLC, GENERIC Personnel Name: [...] BE BASED ON THE PRIMARY CLINICAL RECORDS. [facility] [employer] [facility]. provides no warranty or guarantee of the accuracy or completeness of information in this document.
[2023-11-23 09:52] VITALS: BP 119/65; PULSE 82
== END 2023-11-23 10:18 | disposition home or self-care (01) ==
LOC: FBCO 07:10 → FBC 09:46
PROVIDERS: Visit Provider Obstetrics & Gynecology
DX: O36.63X1 Maternal care for excessive fetal growth, third trimester, fetus 1 (principal); E03.9 Hypothyroidism, unspecified
CPT/HCPCS: 59025

== ENCOUNTER 2023-11-27 07:00 | Outpatient (OUT) | payer OTHER, SELFPAY ==
--- NOTE | 2023-11-27 | US_ITS ---
[address] [address] Patient Name: DEANDRA MOCTEZUMA MRN: [id number] date: 1995 Sex: F Assigned Patient Location: [facility] Current Patient Location: Accession/Order Number: [id number] Exam Date: 11/27/2023 10:00 Report Date: 11/27/2023 11:06 At the request of: JOSSE PURVIS Procedure: US OB BPP w non-stress EXAMINATION: US OB BPP w non-stress HISTORY: EXCESSIVE GROWTH O36.63X0 COMPARISON: No relevant comparison available. TECHNIQUE: Ultrasound biophysical profile was performed in the radiology department. FINDINGS: BREATHING MOVEMENTS: 2.0 GROSS BODY MOVEMENTS: 2.0 TONE: 2.0 QUALITATIVE AMNIOTIC FLUID VOLUME: 2.0 PRESENTATION: CEPHALIC HEART RATE: 139.2 bpm H.B./min AMNIOTIC FLUID VOLUME: 14.8 cm cm GESTATIONAL AGE: 36 weeks 2 days CONCLUSION: Total biophysical profile score: 8.0 Electronically authenticated by: MERNA SILVA Date: 11/27/2023 11:06
--- OUTSIDE RECORDS SUMMARY | 2023-11-27 07:15 | XMS_ITS | CCD ---
Author Name Unknown Address [address] [place] [address] Organization [facility] Care Team Providers Care Senior Sql Server Database Developer Name Role Phone NKECHI TORRES Unavailable Unavaila BAKARI Liriano Attending Unavailable THANG MILLAN Primary Care Unavailable No, Physician Primary Care Provider Unavailerum e RONN, PHYSICIAN Primary Care Unavailable REGINE CHOW Admitting Unavailable REGINE CHOW Attending Unavailable Thang Millan Primary Care Provider Unavailable Primary Care Provider UnavailTHANG Mauro Primary Care Physician Luis Carlos Jung Primary Care Physician Rashaun AMADOR Primary Care Physician [phone] NONE, XXXX Primary Care Physician Unavailab le [...] DO Julia Haywood Attending Unavaila Luis Carlos oCrtez Admitting Unavailable Luis Carlos Jung Attending Unavailable [...] RASHAUN Attending Unavailable PERRY, RASHAUN Attending Unavailable ANGELA, DODIE Attending Unavailable Unavailable Primary Care Provider Unavailabl e Allergies Allergy Classification Reported Allergen(s) Allergy Type Date of Onset Reaction(s) Facility (20 sources) amoxicillin; Translations: [AMOXICILLIN] Drug Allergy 7 [facility] Repository (20 sources) penicillin; Translations: [PENICILLIN] Drug Allergy 7 [facility] Repository (5 sources) Penicillins; Translations: [PENICILLINS] Propensity to adverse reactions to drug 0 [place], [place] (2 sources) Penicillin G procaine Allergy [...] day(s), # 15 cap(s), Refills(s) 0, Pharmacy: [facility], 162.6, cm, 05/21/23 20:50:00 EDT, Height/Length Dosing, 75.3, kg, 05/21/23 20:50:00 EDT, Weight Dosing Start Date: 05/21/23 Stop Date: 05/26/23 Status: Ordered Start: 08-18-2022 End: 08-25-2022 take 1 capsule by mouth four times daily Keflex 500 mg Cap 500 mg = 1 cap(s), Oral, QID, X 7 day(s), # 28 cap(s), Refills(s) 0, Pharmacy: [facility] 1986, 162.5, cm, 08/18/22 4:15:00 EDT, Height/Length Dosing, 80, kg, 08/18/22 4:15:00 EDT, Weight Dosing Start Date: 08/18/22 Stop Date: 08/25/22 Status: Ordered Start: 07-17-2022 End: 07-22-2022 take 1 capsule by mouth every twelve hours Keflex 500 mg Cap 500 mg = 1 cap(s), Oral, q12hr, X 5 day(s), # 10 cap(s), Refills(s) 0, Pharmacy: [facility] 1986, 162.5, cm, 07/17/22 9:09:00 EDT, Height/Length Dosing, 80, kg, 07/17/22 9:09:00 EDT, Weight Dosing Start Date: 07/17/22 Stop Date: 07/22/22 Status: Ordered Start: 04-02-2022 End: 04-09-2022 take 1 capsule by mouth four times daily Keflex 500 mg Cap 500 mg = 1 cap(s), Oral, QID, X 7 day(s), # 28 cap(s), Refills(s) 0, Pharmacy: [facility], 160, cm, 04/02/22 6:28:00 [...] Ordered docusate sodium 50 mg / sennosides, nursing home 8.6 mg oral tablet (2 sources) senna-docusate [...] Daily, # 14 tab(s), Refills(s) 0, Pharmacy: [facility], 162.6, cm, 05/21/23 20:50:00 EDT, Height/Length Dosing, 75.3, kg, 05/21/23 20:50:00 EDT, Weight Dosing Start Date: 05/21/23 Status: Ordered ibuprofen 600 mg oral tablet (11 sources) Nonsteroidal Anti-inflammatory Drug Start: 09-27-2022 take 1 tablet by mouth every six hours ibuprofen 600 mg Tab 600 mg = 1 tab(s), Oral, q6hr, # 15 tab(s), Refills(s) 0, Pharmacy: [facility], 162.5, cm, 09/24/22 21:51:00 [...] dizziness, # 15 tab(s), Refills(s) 0, Pharmacy: [facility] [address], 163, cm, 11/30/21 7:18:00 EST, [...] Nausea/Vomiting, # 12 tab(s), Refills(s) 0, Pharmacy: [facility], 163, cm, 09/05/22 20:14:00 [...] day(s), # 6 tab(s), Refills(s) 0, Pharmacy: [facility], 163, cm, 06/28/23 10:39:00 [...] q8hr, # 12 tab(s), Refills(s) 0, Pharmacy: [facility], 162.6, cm, 05/21/23 20:50:00 [...] UA Negative Negative - 4(70) +++ mg/dL [facility] Blood, UA Negative Negative - 50 Tod/mcL [facility] Clarity, UA Clear [facility] Color, UA Yellow [facility] Glucose, UA Negative Negative - 2000(110) ++++ mg/dL [facility] Interpretation and review of laboratory results Normal [facility] Ketones, UA Negative Negative - 160(16) ++++ mg/dL [facility] Leukocytes, UA Negative Negative - 500+++ Rosemarie/mcL [facility] Nitrite, UA Negative Negative - Positive [facility] pH, UA 7.0 5 - 9 [facility] Protein, UA Negative Negative - 2000(20) ++++ mg/dL [facility] Spec Grav, UA 1.025 1 - 1.03 [facility] Urobilinogen, UA 1.0 0.2 - 12 mg/dL [facility] URINALYSISOrdered By: An Mccarty on [...] AM) Normal Negative [facility] UA Auto SS [place].plasma/[place] .RBC (Bld) [Mass ratio] 0-3 /HPF Normal [...] [facility] UA Auto SS Urobilinogen Qn (U) 0.6256559 {Rola'U}/dL Normal 0.0 - 1.0 EU/dL [facility] UA Auto SS WBC Auto Ql (U) 1+ *ABN* (11/04/23 8:05 AM) Invalid Interpretation Code Negative [facility] UA Auto SS WBC LM.HPF (Urine sed) [#/Area] 6-15 /HPF Invalid Interpretation Code 0-5/HPF [facility] UA Auto SS T3 Totalon 08-24-2023 T3 [Mass/Vol] 146 ng/dL Invalid Interpretation Code 71-180 [facility] Comment on above: Result Comment: Perf ormed at: [facility] [address] [place], [place] [id number] PhD Caroline East Performed By: #### 2 537508, 87231224, 6250066, 36924900, 2230231, 1909763, 34829873 ####[facility] [address] [place] [address] Auto Diffon 08-23-2023 Basophils/100 WBC (Bld) 0.9 % Normal 0.0-2.0 [facility] Comment on above: Order Comment: Order Added by Discern Expert. Performed By: #### 2 478759, 91946122, 6955534, 65727151, 9738214, 2513857, 34063942 ####[address] [address] Basophils/Leukocytes Auto (Bld) [Pure # fraction] 0.1 E9/L Normal 0.0-0.2 [facility] Comment on above: Order Comment: Order Added by Discern Expert. Performed By: #### 2 702209, 35964873, 1854714, 00049477, 2436332, 9052735, 54973622 ####[facility] [address] [place] [address] Eosinophils/100 WBC (Bld) 1.3 % Normal 0.0-8.0 [facility] Comment on above: Order Comment: Order Added by Discern Expert. Performed By: #### 2 691688, 49941288, 6968060, 86898298, 3917665, 2376337, 33508343 ####[address] [address] Eosinophils/Leukocytes Auto (Bld) [Pure # fraction] 0.1 E9/L Normal 0.0-0.5 [facility] Comment on above: Order Comment: Order Added by Discern Expert. Performed By: #### 2 822524, 57548821, 6160018, 35198680, 7112158, 6102662, 68722722 ####[address] [place] [address] Lymphocytes/100 WBC (Bld) 17.7 % Normal 14.0-50.0 [facility] Comment on above: Order Comment: Order Added by Discern Expert. Performed By: #### 2 568102, 39516325, 6381177, 08211745, 3794748, 7740891, 44584728 ####[address] [place] [address] Lymphocytes/Leukocytes Auto (Bld) [Pure # fraction] 1.4 E9/L Normal 1.0-4.0 [facility] Comment on above: Order Comment: Order Added by Discern Expert. Performed By: #### 2 297785, 74909662, 7014548, 58368500, 8606989, 9366642, 89458866 ####[address] [address] Monocytes/100 WBC (Bld) 5.1 % Normal 4.0-14.0 [facility] Comment on above: Order Comment: Order Added by Discern Expert. Performed By: #### 2 487258, 04989672, 2531289, 53607723, 3854060, 4330227, 95058930 ####[address] [address] Monocytes/Leukocytes Auto (Bld) [Pure # fraction] 0.4 E9/L Normal 0.2-1.0 [facility] Comment on above: Order Comment: Order Added by Discern Expert. Performed By: #### 2 514448, 45102276, 4426969, 60892846, 0032077, 4611638, 02494858 ####[address] [place] [address] Neutrophils/100 WBC (Bld) 75.0 % Normal 36.0-75.0 [facility] Comment on above: Order Comment: Order Added by Discern Expert. Performed By: #### 2 551834, 56123836, 0071077, 89999833, 2290088, 0777744, 63692711 ####[address] [place] [address] Neutrophils/Leukocytes Auto (Bld) [Pure # fraction] 5.8 E9/L Normal 2.0-7.5 [facility] Comment on above: Order Comment: Order Added by Discern Expert. Performed By: #### 2 902726, 50245411, 2104720, 71977315, 6756502, 6634600, 18464480 ####[address] [place] [address] CBC w/ Auto Diffon 3 Erythrocyte distribution width (RBC) [Ratio] 14.5 % High 10.9-14.2 [facility] Comment on above: Performed By: #### 2 095589, 53659402, 3800138, 72641802, 9688637, 2485494, 81668386 ####[address] [place] [address] Hematocrit (Bld) [Volume fraction] 36.4 % Normal 34.0-46.0 [facility] Comment on above: Performed By: #### 2 644580, 70803887, 7308723, 97209544, 5077587, 0381849, 96056783 ####[address] [place] [address] Hemoglobin (Bld) [Mass/Vol] 12.1 g/dL Normal 12.0-16.0 [facility] Comment on above: Performed By: #### 2 832919, 77882767, 2930501, 06502229, 5843448, 6367738, 13573730 ####[address] [place] [address] MCH (RBC) [Entitic mass] 30.2 pg Normal 27.0-34.0 [facility] Comment on above: Performed By: #### 2 374659, 10732221, 4421823, 70646232, 9276956, 9595732, 04050634 ####[facility] [address] [place] [address] MCHC (RBC) [Mass/Vol] 33.3 g/dL Normal 31.4-36.0 [facility] Comment on above: Performed By: #### 2 032094, 32878574, 4634986, 00068546, 7273673, 7105948, 42261576 ####[address] [address] MCV (RBC) [Entitic vol] 90.8 fL Normal 80.0-100.0 [facility] Comment on above: Performed By: #### 2 491514, 74685013, 1221636, 18608053, 3500752, 6361423, 54681046 ####[address] [address] Platelet mean volume (Bld) [Entitic vol] 9.7 fL Normal 6.4-10.8 [facility] Comment on above: Performed By: #### 2 590023, 18789781, 3760982, 29714816, 3591868, 7616133, 76690977 ####[address] [address] Platelets (Bld) [#/Vol] 270.0 E9/L Normal 150.0-500.0 [facility] Comment on above: Performed By: #### 2 472627, 17895639, 5227965, 12236960, 9540982, 0898102, 42774290 ####[address] [place] [address] RBC (Bld) [#/Vol] 4.0 E12/L Low 4.3-5.9 [facility] Comment on above: Performed By: #### 2 044728, 08656373, 6848121, 60696625, 8567203, 3319837, 98177049 ####[address] [address] WBC corrected for nucl RBC Auto (Bld) [#/Vol] 7.7 E9/L Normal 4.0-11.0 [facility] Comment on above: Performed By: #### 2 460023, 66630983, 9714608, 99310541, 1698047, 5163810, 45905185 ####[facility] [address] [place] [address] CHEMISTRYOrdered By: SYSTEM SYSTEM on 08-23-2023 Albumin [...] 125 mL/min/1.73 m2 Normal >=59mL/min/ 1.73 m2 [facility] Comment on above: Interpretive Data: [...] 08-23-2023 Albumin [Mass/Vol] 2.8 g/dL Low 3.3-5.0 [facility] Comment on above: Performed By: #### 2 351183, 70075385, 5074643, 85247755, 9887702, 0461213, 06782674 ####[facility] [address] [place] [address] Albumin/Globulin (S) [Mass conc ratio] 0.7 Low 1.1-2.2 [facility] Comment on above: Performed By: #### 2 620944, 03314007, 8635450, 67594002, 7131310, 5578143, 69017081 ####[facility] [address] [place] [address] ALP [Catalytic activity/Vol] 49 Int._Unit/L Normal 21-98 [facility] Comment on above: Performed By: #### 2 237718, 76125089, 5857567, 70651998, 0162527, 3949479, 56008213 ####[facility] [address] [place] [address] ALT No additional P-5'-P [Catalytic activity/Vol] 15 Int._Unit/L Normal 6-46 [facility] Comment on above: Performed By: #### 2 906980, 28421185, 2425310, 60467934, 2409888, 9039957, 48405841 ####[facility] [address] [place] [address] Anion gap [Moles/Vol] 12 mmol/L Normal 6-16 [facility] Comment on above: Performed By: #### 2 527248, 05202283, 0715261, 22679526, 4278023, 7954223, 71197336 ####[facility] [address] [place] [address] AST [Catalytic activity/Vol] 17 Int._Unit/L Normal 5-43 [facility] Comment on above: Performed By: #### 2 196887, 53665014, 6085088, 15321980, 9621556, 6857408, 62790798 ####[facility] [address] [place] [address] Bilirubin [Mass/Vol] 0.5 mg/dL Normal 0.0-1.1 [facility] Comment on above: Performed By: #### 2 078693, 43777345, 1914803, 51462285, 3921219, 8138010, 15746787 ####[facility] [address] [place] [address] Calcium [Mass/Vol] 8.8 mg/dL Low 8.9-11.1 [facility] Comment on above: Performed By: #### 2 107074, 20310585, 1992539, 46204959, 3354467, 3972393, 09414658 ####[facility] [address] [place] [address] Chloride [Moles/Vol] 108 mmol/L Normal 101-111 [facility] Comment on above: Performed By: #### 2 209695, 66306256, 1635967, 25975613, 6674528, 4533265, 02864217 ####[facility] [address] [place] [address] CO2 [Moles/Vol] 22 mmol/L Normal 21-31 [facility] Comment on above: Performed By: #### 2 974051, 49398977, 4114595, 20754623, 6702108, 0372792, 14838432 ####[facility] [address] [place] [address] Creatinine [Mass/Vol] 0.6 mg/dL Normal 0.5-1.3 [facility] Comment on above: Performed By: #### 2 842553, 20182670, 9123341, 80263268, 7798941, 2055070, 80229770 ####[facility] [address] [place] [address] Globulin (S) [Mass/Vol] 3.8 g/dL Normal 1.4-4.0 [facility] Comment on above: Performed By: #### 2 238173, 47405705, 4681729, 16755430, 4452592, 3691702, 29437350 ####[facility] [address] [place] [address] Glucose [Mass/Vol] 88 mg/dL Normal 55-199 [facility] Comment on above: Result Comment: If t his glucose result represents a fasting glucose, interpretation should refer to the following reference range: 55-99 mg/dL Performed By: #### 2 815247, 40621507, 7622936, 62203761, 4647020, 5369393, 51257251 ####[facility] [address] [place] [address] Potassium [Moles/Vol] 3.5 mmol/L Normal 3.5-5.3 [facility] Comment on above: Performed By: #### 2 482722, 36929594, 5384837, 61437375, 1712548, 4123648, 93784801 ####[facility] [address] [place] [address] Protein [Mass/Vol] 6.6 g/dL Normal 6.0-7.8 [facility] Comment on above: Performed By: #### 2 397841, 70656197, 8833681, 48275916, 7943698, 3436127, 96246039 ####[facility] [address] [place] [address] Sodium [Moles/Vol] 138 mmol/L Normal 135-145 [facility] Comment on above: Performed By: #### 2 339750, 78928111, 8781414, 43519609, 5244633, 9504028, 21412876 ####[facility] [address] [place] [address] Urea nitrogen [Mass/Vol] 7 mg/dL Normal 5-21 [facility] Comment on above: Performed By: #### 2 397073, 48102406, 4513775, 25708537, 0654781, 3240421, 37219252 ####[facility] [address] [place] [address] Urea nitrogen/Creatinine [Mass ratio] 12 No Units Normal 10-20 [facility] Comment on above: Performed By: #### 2 978778, 92511431, 4613263, 29151266, 6915123, 5659827, 16372197 ####[facility] [address] [place] [address] HEMATOLOGYOrdered By: SYSTEM SYSTEM on 08-23-2023 Basophils/100 [...] 33.3 g/dL Normal 31.4 - 36.0 gm/dL [facility] HemeAutoSS MCV (RBC) [Entitic vol] 90.8 fL Normal 80.0 - 100.0 fL [facility] HemeAutoSS Platelet mean volume (Bld) [Entitic vol] 9.7 fL Normal 6.4 - 10.8 fL [facility] HemeAutoSS Platelets (Bld) [#/Vol] 270.0 E9/L Normal 150.0 - 500.0 E9/L [facility] HemeAutoSS RBC (Bld) [#/Vol] 4.0 E12/L Low 4.3 - 5.9 E12/L [facility] HemeAutoSS WBC corrected for nucl RBC Auto (Bld) [#/Vol] 7.7 E9/L Normal 4.0 - 11.0 E9/L [facility] HemeAutoSS Lipid Panelon 08-23-2023 Cholesterol [Mass/Vol] 238 mg/dL High 120-200 [facility] Comment on above: Performed By: #### 2 812424, 82562704, 3452087, 80949514, 1032179, 9284504, 19734077 ####[facility] [address] [place] [address] Cholesterol in HDL [Mass/Vol] 64 mg/dL Invalid Interpretation Code [facility] Comment on above: Result Comment: HDL > or equal to 60 mg/dL: Low cardiovascular riskHDL < 40 mg/dL : High cardiovascular risk Performed By: #### 2 930895, 42510989, 7452321, 83710612, 5086069, 6367993, 71203967 ####[facility] [address] [place] [address] Cholesterol in LDL [Mass/Vol] 146 mg/dL High <=129 [facility] Comment on above: Performed By: #### 2 812860, 26890202, 4522225, 71562429, 1112980, 0229025, 36478588 ####[facility] [address] [place] [address] Cholesterol in VLDL [Mass/Vol] 33 mg/dL Normal 7-40 [facility] Comment on above: Performed By: #### 2 697856, 14912868, 8649895, 99812815, 3613310, 7019060, 85214232 ####[facility] [address] [place] [address] Triglyceride [Mass/Vol] 164 mg/dL High <=149 [facility] Comment on above: Performed By: #### 2 629322, 21846904, 1466300, 29107496, 5056483, 3226782, 57089822 ####[facility] [address] [place] [address] Physician Orderon 08-23-2023 Physician Order [id number]#1.00TIFF Normal [facility] T4 & TSHon 08-23-2023 T4 [Mass/Vol] 11.8 microgram/dL High 4.6-9.1 [facility] Comment on above: Performed By: #### 2 209017, 24897790, 6653008, 62327927, 1567905, 9658714, 11473559 ####[facility] [address] [place] [address] TSH Qn 3.61 m[IU]/L Normal 0.34-5.60 [facility] Comment on above: Performed By: #### 2 457821, 66330148, 7516722, 07770035, 2887102, 9398180, 09652198 ####[facility] [address] [place] [address] eGFRon 08-23-2023 GFR/1.73 sq M.predicted among non-blacks MDRD (S/P/Bld) [Vol rate/Area] 125 mL/min/1.73 m2 Normal >=59 [facility] Comment on above: Order Comment: Order added by Discern Expert. Result Comment: Unis[employer] Operator lucy kidney disease could be indicated at eGFR's of less than 60 mL/min/1.73m2. Kidney failure is indicated at less than 15 mL/min/1.73m2. Performed By: #### 2 585122, 34169993, 8219399, 97697084, 8436751, 4133052, 59172146 ####[facility] [address] [place] [address] Nursing Assessmenton 023 Nursing Assessment [id number]#1.00TIFF Normal [facility] Consent for Treatmenton Consent for Treatment [id number]#1.00TIFF Normal [facility] Discharge Instructionson Discharge Instructions [id number]#1.00TIFF Normal [facility] Inpatient Clinical Summaryon 08-18-2023 Inpatient Clinical Summary Normal [facility] Inpatient Patient Summaryon 08-18-2023 Inpatient Patient Summary Normal [facility] Insurance Correspondenceon 10-18-2022 Insurance Correspondence [id number]#1.00TIFF Normal [facility] Vaccinationson 08-18-2023 Vaccinations [id number]#1.00TIFF Normal [facility] C Urineon 07-27-2023 Bacteria identified Cx Nom (U) Normal [facility] Comment on above: Performed By: #### 2 078545, 01223639 ####[facility] [address] [place] [address] ABO/Rhon 07-25-2023 ABO/Rh Positive Invalid Interpretation Code [facility] Comment on above: Performed By: #### 2 029880 ####[facility] [address] [place] [address] Auto Diffon 07-25-2023 Basophils/100 WBC (Bld) 1.1 % Normal 0.0-2.0 [facility] Comment on above: Order Comment: Order Added by Discern Expert. Performed By: #### 1 4039367, 5668221, 2987770, 1974349, 6356325, 4860362 ####[address] [place] [address] Basophils/Leukocytes Auto (Bld) [Pure # fraction] 0.1 E9/L Normal 0.0-0.2 [facility] Comment on above: Order Comment: Order Added by Discern Expert. Performed By: #### 1 9420598, 5482147, 6838738, 1846917, 1614732, 0298395 ####[address] [place] [address] Eosinophils/100 WBC (Bld) 1.2 % Normal 0.0-8.0 [facility] Comment on above: Order Comment: Order Added by Discern Expert. Performed By: #### 1 8870591, 4822946, 0769484, 8822146, 1847296, 9267146 ####[address] [address] Eosinophils/Leukocytes Auto (Bld) [Pure # fraction] 0.1 E9/L Normal 0.0-0.5 [facility] Comment on above: Order Comment: Order Added by Gisselle Expert. Performed By: #### 1 8227965, 1150444, 9720349, 5762873, 3063480, 4585643 ####[address] [address] Lymphocytes/100 WBC (Bld) 23.7 % Normal 14.0-50.0 [facility] Comment on above: Order Comment: Order Added by Discern Expert. Performed By: #### 1 8601946, 4800867, 2566255, 9241548, 7523621, 2772480 ####[address] [place] [address] Lymphocytes/Leukocytes Auto (Bld) [Pure # fraction] 1.4 E9/L Normal 1.0-4.0 [facility] Comment on above: Order Comment: Order Added by Gisselle Expert. Performed By: #### 1 8239777, 3590960, 6554683, 7231471, 2222076, 1383324 ####[address] [place] [address] Monocytes/100 WBC (Bld) 6.7 % Normal 4.0-14.0 [facility] Comment on above: Order Comment: Order Added by Discern Expert. Performed By: #### 1 3353029, 2262570, 4567458, 4797776, 2529756, 3725920 ####[address] [place] [address] Monocytes/Leukocytes Auto (Bld) [Pure # fraction] 0.4 E9/L Normal 0.2-1.0 [facility] Comment on above: Order Comment: Order Added by Discern Expert. Performed By: #### 1 9743806, 2613855, 2795942, 3278175, 2464079, 4015086 ####[address] [place] [address] Neutrophils/100 WBC (Bld) 67.3 % Normal 36.0-75.0 [facility] Comment on above: Order Comment: Order Added by Discern Expert. Performed By: #### 1 3922067, 0902096, 9470738, 2151745, 1254620, 7514788 ####[address] [address] Neutrophils/Leukocytes Auto (Bld) [Pure # fraction] 4.0 E9/L Normal 2.0-7.5 [facility] Comment on above: Order Comment: Order Added by Discern Expert. Performed By: #### 1 3215870, 0239239, 6554019, 6637040, 4283724, 4538509 ####[facility] [address] [place] [address] BLOOD BANKOrdered By: An Lassiter on 07-25-2023 ABO/Rh Interp Positive Invalid Interpretation Code [facility] BB Subsection BMPon 07-25-2023 Creatinine [Mass/Vol] 0.6 mg/dL Normal 0.5-1.3 [facility] Comment on above: Performed By: #### 1 0434822, 5950254, 4755598, 5988624, 5316535, 3762770 ####[facility] [address] [place] [address] Urea nitrogen [Mass/Vol] 6 mg/dL Normal 5-21 [facility] Comment on above: Performed By: #### 1 7460233, 7652305, 8713738, 5657321, 0026702, 3307667 ####[facility] [address] [place] [address] Urea nitrogen/Creatinine [Mass ratio] 10 No Units Normal 10-20 [facility] Comment on above: Performed By: #### 1 [id number], [id number], [id number], [id number], [id number] ####[facility] [address] [place] [address] Anion gap [Moles/Vol] 2 mmol/L Low 6-16 [facility] Comment on above: Performed By: #### 1 [id number], [id number], [id number], [id number], [id number], [id number] ####[facility] [address] [place] [address] Calcium [Mass/Vol] 8.6 mg/dL Low 8.9-11.1 [facility] Comment on above: Performed By: #### 1 5255915, 2857069, 9663636, 5283263, 5029316, 4381544 ####[facility] [address] [place] [address] Chloride [Moles/Vol] 107 mmol/L Normal 101-111 [facility] Comment on above: Performed By: #### 1 2687145, 3363488, 3299138, 5637249, 4435090, 7492838 ####[facility] [address] [place] [address] CO2 [Moles/Vol] 27 mmol/L Normal 21-31 [facility] Comment on above: Performed By: #### 1 3147003, 1080216, 2953258, 5108712, 2186938, 9780880 ####[facility] [address] [place] [address] Glucose [Mass/Vol] 73 mg/dL Normal 55-199 [facility] Comment on above: Result Comment: If t his glucose result represents a fasting glucose, interpretation should refer to the following reference range: 55-99 mg/dL Performed By: #### 1 6098165, 0932564, 4912736, 8213566, 3398385, 6088694 ####[facility] [address] [place] [address] Potassium [Moles/Vol] 3.9 mmol/L Normal 3.5-5.3 [facility] Comment on above: Performed By: #### 1 9180814, 0277903, 0804140, 0812859, 5410385, 7264704 ####[facility] [address] [place] [address] Sodium [Moles/Vol] 132 mmol/L Low 135-145 [facility] Comment on above: Performed By: #### 1 1127491, 5802912, 3740613, 1369682, 2039336, 6247010 ####[facility] [address] [place] [address] BhCG Quanton 07-25-2023 [place] [address] m[IU]/mL High 1-[address] [facility] Comment on above: Result Comment: GEST ATIONAL AGE HCG RANGE (mIU/mL) NON- <1-3 0.2-1 WEEKS 5-50 1-2 WEEKS 50-500 2-3 WEEKS 100-5,000 3-4 WEEKS 500-10,000 4-5 WEEKS 1,000-50,000 5-6 WEEKS 10,000-100,000 6-8 WEEKS 15,000-200,000 8-12 WEEKS 10,000-100,000 Performed By: #### 2 526660 ####[facility] [address] [place] [address] CBC w/ Auto Diffon Erythrocyte distribution width (RBC) [Ratio] 14.0 % Normal 10.9-14.2 [facility] Comment on above: Performed By: #### 1 9829471, 5442864, 0535321, 8280578, 8703954, 1008156 ####[facility] [address] [place] [address] Hematocrit (Bld) [Volume fraction] 37.1 % Normal 34.0-46.0 [facility] Comment on above: Performed By: #### 1 9945184, 0752975, 3847495, 3905508, 1706124, 5964226 ####[place] [address] [place] [address] Hemoglobin (Bld) [Mass/Vol] 12.5 g/dL Normal 12.0-16.0 [facility] Comment on above: Performed By: #### 1 5365283, 4627167, 6040925, 4868960, 4543395, 2918150 ####[place] [address] MCH (RBC) [Entitic mass] 29.9 pg Normal 27.0-34.0 [facility] Comment on above: Performed By: #### 1 6191098, 1317427, 8502101, 2731667, 8203770, 0699210 ####[place] [address] MCHC (RBC) [Mass/Vol] 33.8 g/dL Normal 31.4-36.0 [facility] Comment on above: Performed By: #### 1 2707595, 7055076, 3845809, 9706251, 3455677, 9218259 ####[place] [address] MCV (RBC) [Entitic vol] 88.4 fL Normal 80.0-100.0 [facility] Comment on above: Performed By: #### 1 2544085, 5382322, 1845100, 8317619, 0686760, 7590824 ####[address] [address] Platelet mean volume (Bld) [Entitic vol] 7.9 fL Normal 6.4-10.8 [facility] Comment on above: Performed By: #### 1 8845824, 6110851, 5600004, 4632285, 1062679, 6267083 ####[facility] [address] [place] [address] Platelets (Bld) [#/Vol] 261.0 E9/L Normal 150.0-500.0 [facility] Comment on above: Performed By: #### 1 3632307, 6258839, 0995644, 9833164, 1567394, 2669005 ####[facility] [address] [place] [address] RBC (Bld) [#/Vol] 4.2 E12/L Low 4.3-5.9 [facility] Comment on above: Performed By: #### 1 7291073, 6670466, 2970006, 5937047, 2235292, 8297365 ####[facility] [address] [place] [address] WBC corrected for nucl RBC Auto (Bld) [#/Vol] 5.9 E9/L Normal 4.0-11.0 [facility] Comment on above: Performed By: #### 1 2126585, 5580745, 8556853, 4342829, 6463683, 7688906 ####[facility] [address] [place] [address] CHEMISTRYOrdered By: SYSTEM SYSTEM on 07-25-2023 Albumin [...] 125 mL/min/1.73 m2 Normal >=59mL/min/ 1.73 m2 [facility] Chem S Comment on above: Interpretive Data: [...] reference range: 55-99 mg/[place] [address] m[IU]/mL High 1 - 3 mIU/mL [facility] [...] Consent for Treatmenton 07-15 Consent for Treatment [id number]#1.00TIFF Normal [facility] Discharge Instructionson Discharge Instructions [id number]#1.00TIFF Normal [facility] ED Clinical Summaryon 2022 ED Clinical Summary Normal [facility] ED Note-Physicianon 07-25-20 ED Note-Physician Normal [facility] Comment on above: Result Comment: Elec tronically Signed By: Jorge Velarde PA-C\.br\Date and Time Signed: 07/25/23 10:02 EDT\.br\Electronically Co-Signed By: Kristian Guillermo DO.br\Date and Time Co-Signed: 07/25/23 20:25 EDT ED Patient Education Noteon 07-25-2023 ED Patient Education Note Normal [facility] ED Patient Summaryon 023 ED Patient Summary Normal [facility] HEMATOLOGYOrdered By: SYSTEM SYSTEM on 07-25-2023 [...] 4.2 E12/L Low 4.3 - 5.9 E12/L [facility] HemeAutoSS WBC corrected for nucl RBC Auto (Bld) [#/Vol] 5.9 E9/L Normal 4.0 - 11.0 E9/L [facility] HemeAutoSS Hep Func Panelon 07-25-2023 Bilirubin.indirect [Mass or moles/Vol] UTC Abnormal 0.1-0.9 [facility] Comment on above: Result Comment: Resu lt verified by Discern Rule. Performed result UT (Unable to Calculate) was sent as an Alpha code due the inability to calculate a valid numeric value. Performed By: #### 1 5755298, 7956601, 4880690, 4649452, 2996824, 5129250 ####[place] [place] [address] Albumin [Mass/Vol] 3.1 g/dL Low 3.3-5.0 [facility] Comment on above: Performed By: #### 1 7903130, 5566308, 9962128, 9837584, 4278753, 6447887 ####[facility] [address] [place] [address] Albumin/Globulin (S) [Mass conc ratio] 0.9 Low 1.1-2.2 [facility] Comment on above: Performed By: #### 1 9089655, 6707820, 4602419, 2277056, 1077193, 8272330 ####[place] [address] [place] [address] ALP [Catalytic activity/Vol] 35 Int._Unit/L Normal 21-98 [facility] Comment on above: Performed By: #### 1 6391992, 1690539, 3822189, 2145124, 1326568, 9574412 ####[facility] [address] [place] [address] ALT No additional P-5'-P [Catalytic activity/Vol] 10 Int._Unit/L Normal 6-46 [facility] Comment on above: Performed By: #### 1 6768742, 9426609, 8977684, 9387477, 6992964, 8066028 ####[place] [place] [address] AST [Catalytic activity/Vol] 18 Int._Unit/L Normal 5-43 [facility] Comment on above: Performed By: #### 1 0120715, 6155609, 0742635, 0831578, 8682595, 7996236 ####[facility] [address] [place] [address] Bilirubin [Mass/Vol] 0.4 mg/dL Normal 0.0-1.1 [facility] Comment on above: Performed By: #### 1 2930800, 2778281, 7051637, 7295731, 4451810, 9229749 ####[place] [place] [address] Globulin (S) [Mass/Vol] 3.6 g/dL Normal 1.4-4.0 [facility] Comment on above: Performed By: #### 1 0216802, 5090447, 4451668, 5712683, 4920249, 3665299 ####[facility] [address] [place] [address] Protein [Mass/Vol] 6.7 g/dL Normal 6.0-7.8 [facility] Comment on above: Performed By: #### 1 9558822, 3493561, 1337171, 8148609, 1763163, 7370628 ####[facility] [address] [place] [address] Bilirubin.direct [Mass/Vol] mg/dL Normal 0.1-0.4 [facility] Comment on above: Performed By: #### 1 5996079, 0409472, 1683193, 1799962, 2582703, 8118213 ####[place] [place] [address] Lipase Levelon 07-25-2023 Lipase [Catalytic activity/Vol] 28 U/L Normal 13-58 [facility] Comment on above: Performed By: #### 1 8917153, 7991419, 8182250, 7109088, 2729126, 4295246 ####[facility] [address] [place] [address] UA With Cult Reflexon 2022 Bacteria LM Ql (Urine sed) TRACE Normal Trace [facility] Comment on above: Performed By: #### 2 698644, 29704659 ####[facility] [address] [place] [address] Bilirubin Ql (U) Negative Normal Negative [facility] Comment on above: Performed By: #### 2 067977, 18190557 ####[facility] [address] [place] [address] Clarity (U) SL CLOUDY Abnormal Clear [facility] Comment on above: Performed By: #### 2 677279, 57362925 ####[facility] [address] [place] [address] Color (U) YELLOW Normal Yellow [facility] Comment on above: Performed By: #### 2 768439, 40975206 ####[address] [address] Epithelial cells.squamous LM.HPF (Urine sed) [#/Area] 0-2 Normal 0-2 [facility] Comment on above: Performed By: #### 2 301564, 88710491 ####[facility] [address] [place] [address] Glucose Test strip (U) [Mass/Vol] Negative Normal Negative [facility] Comment on above: Performed By: #### 2 424187, 62240982 ####[facility] [address] [place] [address] Hemoglobin Ql (U) Negative Normal Negative [facility] Comment on above: Performed By: #### 2 265046, 76457518 ####[facility] [address] [place] [address] Ketones (U) [Mass/Vol] Negative Normal Negative [facility] Comment on above: Performed By: #### 2 952995, 50101337 ####[facility] [address] [place] [address] [place].plasma/[place] .RBC (Bld) [Mass ratio] 0-3 Normal 0-3 [facility] Comment on above: Performed By: #### 2 617877, 86963417 ####[place] [address] Nitrite Ql (U) Negative Normal Negative [facility] Comment on above: Performed By: #### 2 481439, 45592142 ####[place] [address] pH (U) 7.5 [pH] Invalid Interpretation Code 5.0-9.0 [facility] Comment on above: Performed By: #### 2 813658, 21675266 ####[place] [address] Protein (U) [Mass/Vol] Negative Normal Negative [facility] Comment on above: Performed By: #### 2 121853, 71468609 ####[place] [address] Specific gravity (U) [Rel density] 1.010 Invalid Interpretation Code 1.005-1.030 [facility] Comment on above: Performed By: #### 2 906150, 37082762 ####[place] [address] Type of Urine collection method Clean Catch Normal [facility] Comment on above: Performed By: #### 2 862631, 68582032 ####[place] [address] Urobilinogen Qn (U) 1.0 {Rola'U}/dL Normal 0.0-1.0 [facility] Comment on above: Performed By: #### 2 458786, 62624007 ####[place] [address] WBC Auto Ql (U) 2+ Abnormal Negative [facility] Comment on above: Performed By: #### 2 701785, 08203919 ####[address] [address] WBC LM.HPF (Urine sed) [#/Area] 0-5 Normal 0-5 [facility] Comment on above: Performed By: #### 2 438814, 35486115 ####[facility] [address] [place] [address] URINALYSISOrdered By: Emy Aiken on 07-25-2023 Bacteria [...] AM) Normal Negative [facility] UA Auto SS [place].plasma/[place] .RBC (Bld) [Mass ratio] 0-3 /HPF Normal [...] [facility] UA Auto SS Urobilinogen Qn (U) 1.2314856 {Rola'U}/dL Normal 0.0 - 1.0 EU/dL [facility] UA Auto SS WBC Auto Ql (U) 2+ *ABN* (07/25/23 8:33 AM) Invalid Interpretation Code Negative [facility] UA Auto SS WBC LM.HPF (Urine sed) [#/Area] 0-5 /HPF Normal 0-5/HPF [facility] UA Auto SS US Limitedon 07-25 US Limited Normal [facility] eGFRon 07-25-2023 GFR/1.73 sq M.predicted among non-blacks MDRD (S/P/Bld) [Vol rate/Area] 125 mL/min/1.73 m2 Normal >=59 [facility] Comment on above: Order Comment: Order added by Discern Expert. Result Comment: Unisaw Operator lucy kidney disease could be indicated at eGFR's of less than 60 mL/min/1.73m2. Kidney failure is indicated at less than 15 mL/min/1.73m2. Performed By: #### 1 9176503, 9426459, 7164799, 3982433, 2241233, 3025717 ####[facility] [address] [place] [address] C Urineon 06-30-2023 Bacteria identified Cx Nom (U) Normal [facility] Comment on above: Performed By: #### 2 845975 ####[facility] [address] [place] [address] Family Medicine Office/Clini c Noteon 06-28-2023 Family Medicine Office/Clinic Note Normal [facility] Comment on above: Result Comment: Elec tronically Signed By: Татьяна NICHOLS, Roverto Barron\.br\Date and Time Signed: 06/28/23 11:41 EDT Patient Educationon 06-28-20 Patient Education Normal [facility] ABO/Rhon 06-14-2023 ABO/Rh Positive Invalid Interpretation Code [facility] Comment on above: Performed By: #### 2 824545 ####[facility] [address] [place] [address] Auto Diffon 06-14-2023 Basophils/100 WBC (Bld) 0.8 % Normal 0.0-2.0 [facility] Comment on above: Order Comment: Order Added by Discern Expert. Performed By: #### 2 522188, 9289106, 1042555, 7416572, 9419031, 99436486 ####[place] [address] [place] [address] Basophils/Leukocytes Auto (Bld) [Pure # fraction] 0.0 E9/L Normal 0.0-0.2 [facility] Comment on above: Order Comment: Order Added by Discern Expert. Performed By: #### 2 535511, 2432727, 3281201, 8477463, 6260071, 83180421 ####[address] [address] Eosinophils/100 WBC (Bld) 1.9 % Normal 0.0-8.0 [facility] Comment on above: Order Comment: Order Added by Discern Expert. Performed By: #### 2 499946, 6096895, 8422699, 2044506, 7960108, 72681512 ####[address] [address] Eosinophils/Leukocytes Auto (Bld) [Pure # fraction] 0.1 E9/L Normal 0.0-0.5 [facility] Comment on above: Order Comment: Order Added by Discern Expert. Performed By: #### 2 354161, 6176051, 2908112, 6823102, 8613730, 60136937 ####[address] [address] Lymphocytes/100 WBC (Bld) 24.5 % Normal 14.0-50.0 [facility] Comment on above: Order Comment: Order Added by Discern Expert. Performed By: #### 2 779145, 4792174, 1681827, 1001471, 2613948, 64724845 ####[address] [address] Lymphocytes/Leukocytes Auto (Bld) [Pure # fraction] 1.3 E9/L Normal 1.0-4.0 [facility] Comment on above: Order Comment: Order Added by Discern Expert. Performed By: #### 2 595647, 3238740, 8955893, 0406164, 6586259, 41739035 ####[facility] [address] [place] [address] Monocytes/100 WBC (Bld) 7.8 % Normal 4.0-14.0 [facility] Comment on above: Order Comment: Order Added by Discern Expert. Performed By: #### 2 664334, 0949643, 7664556, 5754962, 3655407, 77660947 ####[facility] [address] [place] [address] Monocytes/Leukocytes Auto (Bld) [Pure # fraction] 0.4 E9/L Normal 0.2-1.0 [facility] Comment on above: Order Comment: Order Added by Gisselle Expert. Performed By: #### 2 491201, 7026729, 3865593, 8525760, 0440631, 35792558 ####[place] [place] [address] Neutrophils/100 WBC (Bld) 65.0 % Normal 36.0-75.0 [facility] Comment on above: Order Comment: Order Added by Gisselle Expert. Performed By: #### 2 458138, 2109763, 4482488, 6726260, 0244475, 16396636 ####[place] [address] [place] [address] Neutrophils/Leukocytes Auto (Bld) [Pure # fraction] 3.5 E9/L Normal 2.0-7.5 [facility] Comment on above: Order Comment: Order Added by Gisselle Expert. Performed By: #### 2 122701, 7603776, 2090068, 7642729, 5767986, 20465005 ####[facility] [address] [place] [address] BLOOD BANKOrdered By: Keila Kumar on 06-14-2023 ABO/Rh Interp Positive Invalid Interpretation Code [facility] BB Subsection BMPon 06-14-2023 Creatinine [Mass/Vol] 0.5 mg/dL Normal 0.5-1.3 [facility] Comment on above: Performed By: #### 2 142692, 9518088, 0951500, 8844521, 0291324, 66692486 ####[facility] [address] [place] [address] Urea nitrogen [Mass/Vol] 6 mg/dL Normal 5-21 [facility] Comment on above: Performed By: #### 2 809036, 0563540, 7983344, 8561170, 8047121, 73989873 ####[facility] [address] [place] [address] Urea nitrogen/Creatinine [Mass ratio] 12 No Units Normal 10-20 [facility] Comment on above: Performed By: #### 2 778227, 9745438, 1233886, 4535423, 4237739, 47787561 ####[facility] [address] [place] [address] Anion gap [Moles/Vol] 10 mmol/L Normal 6-16 [facility] Comment on above: Performed By: #### 2 687050, 0372938, 1008580, 4327594, 9199069, 27187453 ####[facility] [address] [place] [address] Calcium [Mass/Vol] 8.7 mg/dL Low 8.9-11.1 [facility] Comment on above: Performed By: #### 2 862503, 9221513, 7595491, 1243561, 2984618, 24901011 ####[facility] [address] [place] [address] Chloride [Moles/Vol] 107 mmol/L Normal 101-111 [facility] Comment on above: Performed By: #### 2 503190, 8363499, 6898508, 2959868, 3939892, 12532581 ####[facility] [address] [place] [address] CO2 [Moles/Vol] 21 mmol/L Normal 21-31 [facility] Comment on above: Performed By: #### 2 485244, 8193745, 8936732, 0315113, 5452605, 33380516 ####[facility] [address] [place] [address] Glucose [Mass/Vol] 77 mg/dL Normal 55-199 [facility] Comment on above: Result Comment: If t his glucose result represents a fasting glucose, interpretation should refer to the following reference range: 55-99 mg/dL Performed By: #### 2 222367, 5117004, 2004881, 0811029, 7329670, 96865620 ####[facility] [address] [place] [address] Potassium [Moles/Vol] 3.8 mmol/L Normal 3.5-5.3 [facility] Comment on above: Performed By: #### 2 261183, 7462913, 7730959, 8884756, 7707011, 08532280 ####[facility] [address] [place] [address] Sodium [Moles/Vol] 134 mmol/L Low 135-145 [facility] Comment on above: Performed By: #### 2 145703, 9314210, 3550470, 6692810, 2162993, 25910012 ####[facility] [address] [place] [address] BhCG Quanton 06-14-2023 HCG.beta subunit Qn 875052 m[IU]/mL High 1-3 [facility] Comment on above: Result Comment: GEST ATIONAL AGE HCG RANGE (mIU/mL) NON- <1-3 0.2-1 WEEKS 5-50 1-2 WEEKS 50-500 2-3 WEEKS 100-5,000 3-4 WEEKS 500-10,000 4-5 WEEKS 1,000-50,000 5-6 WEEKS 10,000-100,000 6-8 WEEKS 15,000-200,000 8-12 WEEKS 10,000-100,000 Performed By: #### 2 510742 ####[facility] [address] [place] [address] CBC w/ Auto Diffon 3 Erythrocyte distribution width (RBC) [Ratio] 12.6 % Normal 10.9-14.2 [facility] Comment on above: Performed By: #### 2 757290, 3950592, 5710133, 4813459, 2024875, 96917714 ####[place] [place] [address] Hematocrit (Bld) [Volume fraction] 39.9 % Normal 34.0-46.0 [facility] Comment on above: Performed By: #### 2 652625, 5444565, 9432701, 3899518, 3783092, 29078638 ####[address] [place] [address] Hemoglobin (Bld) [Mass/Vol] 13.4 g/dL Normal 12.0-16.0 [facility] Comment on above: Performed By: #### 2 854721, 7897378, 2034208, 6452675, 9367042, 12892425 ####[address] [address] MCH (RBC) [Entitic mass] 29.8 pg Normal 27.0-34.0 [facility] Comment on above: Performed By: #### 2 156741, 5648713, 9036301, 0200580, 4550822, 27151591 ####[address] [address] MCHC (RBC) [Mass/Vol] 33.6 g/dL Normal 31.4-36.0 [facility] Comment on above: Performed By: #### 2 290172, 6974437, 4033116, 9278879, 7377854, 58463867 ####[address] [address] MCV (RBC) [Entitic vol] 88.8 fL Normal 80.0-100.0 [facility] Comment on above: Performed By: #### 2 011478, 7929404, 5817894, 4742473, 4980836, 97975972 ####[facility] [address] [place] [address] Platelet mean volume (Bld) [Entitic vol] 8.4 fL Normal 6.4-10.8 [facility] Comment on above: Performed By: #### 2 165197, 1272916, 9982773, 6715233, 5834841, 25130223 ####[facility] [address] [place] [address] Platelets (Bld) [#/Vol] 225.0 E9/L Normal 150.0-500.0 [facility] Comment on above: Performed By: #### 2 952352, 0924749, 3858379, 8279171, 4626446, 26533829 ####[address] [place] [address] RBC (Bld) [#/Vol] 4.5 E12/L Normal 4.3-5.9 [facility] Comment on above: Performed By: #### 2 307077, 5015889, 3091482, 1384975, 8269990, 15660717 ####[place] [place] [address] WBC corrected for nucl RBC Auto (Bld) [#/Vol] 5.4 E9/L Normal 4.0-11.0 [facility] Comment on above: Performed By: #### 2 568548, 0777119, 9889305, 5360759, 5970693, 98678373 ####[address] [place] [address] CHEMISTRYOrdered By: SYSTEM SYSTEM on 06-14-2023 Albumin [...] 199 mg/dL FT Remisol HCG.beta subunit Qn 304251 m[IU]/mL High 1 - 3 mIU/mL [facility] Remisol Lipase [Catalytic activity/Vol] 28 U/L Normal 13 - 58 unit/L [facility] Remisol Potassium [Moles/Vol] 3.8 mmol/L Normal 3.5 - 5.3 mmol/L [facility] Remisol Protein [Mass/Vol] 6.8 g/dL Normal 6.0 - 7.8 gm/dL [facility] Remisol Sodium [Moles/Vol] 134 mmol/L Low 135 - 145 mmol/L [facility] Remisol Urea nitrogen [Mass/Vol] 6 mg/dL Normal 5 - 21 mg/dL [facility] Remisol Urea nitrogen/Creatinine [Mass ratio] 12 mg/mg Normal 10 - 20 [facility] Remisol Consent for Treatmenton 05-17 Consent for Treatment [id number]:12 [id number] Normal [facility] ED Clinical Summaryon 2022 ED Clinical Summary Normal [facility] ED Note-Physicianon 06-14-20 ED Note-Physician Normal [facility] Comment on above: Result Comment: Elec tronically Signed By: Jos Ugalde PA-C\.br\Date and Time Signed: 06/14/23 11:58 EDT\.br\Electronically Co-Signed By: Kristian Guillermo DO\.br\Date and Time Co-Signed: 06/14/23 17:02 EDT ED Patient Education Noteon 06-14-2023 ED Patient Education Note Normal [facility] ED Patient Summaryon 023 ED Patient Summary Normal [facility] HEMATOLOGYOrdered By: SYSTEM SYSTEM on 06-14-2023 [...] Bilirubin.indirect [Mass or moles/Vol] UTC Abnormal 0.1-0.9 [facility] Comment on above: Result Comment: Resu lt verified by Discern Rule. Performed result UTC (Unable to Calculate) was sent as an Alpha code due the inability to calculate a valid numeric value. Performed By: #### 2 629187, 9318888, 9352105, 0277767, 5981218, 88935520 ####[facility] [address] [place] [address] Albumin [Mass/Vol] 3.5 g/dL Normal 3.3-5.0 [facility] Comment on above: Performed By: #### 2 268447, 8499687, 0537594, 0422504, 7628969, 63264992 ####[facility] [address] [place] [address] Albumin/Globulin (S) [Mass conc ratio] 1.1 Normal 1.1-2.2 [facility] Comment on above: Performed By: #### 2 679326, 4949050, 4893707, 3187845, 3111798, 70737318 ####[id number] [place] [address] ALP [Catalytic activity/Vol] 34 Int._Unit/L Normal 21-98 [facility] Comment on above: Performed By: #### 2 139062, [id number], [id number], [id number], [id number], [id number] ####[facility] [id number] [place] [address] ALT No additional P-5'-P [Catalytic activity/Vol] 13 Int._Unit/L Normal 6-46 [facility] Comment on above: Performed By: #### 2 [id number], [id number], [id number], 3332661, [id number], [id number] ####[address] [place] [address] AST [Catalytic activity/Vol] 17 Int._Unit/L Normal 5-43 [facility] Comment on above: Performed By: #### 2 155388, [id number], 2363683, [id number], [id number], [id number] ####[facility] [address] [place] [address] Bilirubin [Mass/Vol] 0.6 mg/dL Normal 0.0-1.1 [facility] Comment on above: Performed By: #### 2 082535, 1995948, 5629299, 3849176, 6385824, 33406728 ####[facility] [address] [place] [address] Globulin (S) [Mass/Vol] 3.3 g/dL Normal 1.4-4.0 [facility] Comment on above: Performed By: #### 2 705578, 3680766, 2683647, 7075813, 4057052, 58149083 ####[facility] [address] [place] [address] Protein [Mass/Vol] 6.8 g/dL Normal 6.0-7.8 [facility] Comment on above: Performed By: #### 2 599137, 3638441, 6124979, 4164390, 5657783, 06378818 ####[facility] [address] [place] [address] Bilirubin.direct [Mass/Vol] mg/dL Normal 0.1-0.4 [facility] Comment on above: Performed By: #### 2 842517, 5664159, 9660012, 8114501, 2265491, 19362633 ####[facility] [address] [place] [address] Lipase Levelon 06-14-2023 Lipase [Catalytic activity/Vol] 28 U/L Normal 13-58 [facility] Comment on above: Performed By: #### 2 729487, 3269271, 5398980, 1687477, 1762821, 92729350 ####[facility] [address] [place] [address] Progress Note-Nurseon 2022 Progress Note-Nurse Lizet RN verbalize d she was unable to locate patient at this time Normal [facility] UA With Cult Reflexon 2022 Bacteria LM Ql (Urine sed) TRACE Normal Trace [facility] Comment on above: Performed By: #### 1 3726964 ####[facility] [address] [place] [address] Bilirubin Ql (U) Negative Normal Negative [facility] Comment on above: Performed By: #### 1 6076173 ####[facility] [address] [place] [address] Clarity (U) CLEAR Normal Clear [facility] Comment on above: Performed By: #### 1 2554751 ####[address] [address] Color (U) YELLOW Normal Yellow [facility] Comment on above: Performed By: #### 1 5403656 ####[address] [address] Epithelial cells.squamous LM.HPF (Urine sed) [#/Area] 3-4 Normal 0-2 [facility] Comment on above: Performed By: #### 1 7630145 ####[address] [address] Glucose Test strip (U) [Mass/Vol] Negative Normal Negative [facility] Comment on above: Performed By: #### 1 0591162 ####[address] [address] Hemoglobin Ql (U) Negative Normal Negative [facility] Comment on above: Performed By: #### 1 8209618 ####[address] [address] Ketones (U) [Mass/Vol] Negative Normal Negative [facility] Comment on above: Performed By: #### 1 6779291 ####[address] [address] [place].plasma/[place] .RBC (Bld) [Mass ratio] 0-3 Normal 0-3 [facility] Comment on above: Performed By: #### 1 3462170 ####[address] [address] Mucus Ql (Urine sed) TRACE Normal [facility] Comment on above: Performed By: #### 1 3300013 ####[address] [address] Nitrite Ql (U) Negative Normal Negative [facility] Comment on above: Performed By: #### 1 1140651 ####[address] [address] pH (U) 6.5 [pH] Invalid Interpretation Code 5.0-9.0 [facility] Comment on above: Performed By: #### 1 4143336 ####[address] [address] Protein (U) [Mass/Vol] Negative Normal Negative [facility] Comment on above: Performed By: #### 1 5028863 ####[address] [address] Specific gravity (U) [Rel density] 1.015 Invalid Interpretation Code 1.005-1.030 [facility] Comment on above: Performed By: #### 1 0052276 ####[address] [address] Type of Urine collection method Clean Catch Normal [facility] Comment on above: Performed By: #### 1 2897962 ####[address] [address] Urobilinogen Qn (U) 0.2 {Rola'U}/dL Normal 0.0-1.0 [facility] Comment on above: Performed By: #### 1 0501221 ####[address] [address] WBC Auto Ql (U) TRACE Abnormal Negative [facility] Comment on above: Performed By: #### 1 4824030 ####[address] [address] WBC LM.HPF (Urine sed) [#/Area] 0-5 Normal 0-5 [facility] Comment on above: Performed By: #### 1 0351663 ####[address] [address] URINALYSISOrdered By: An Mccarty on 06-14-2023 Bacteria LM Ql (Urine sed) Trace /HPF Normal Trace/HPF [facility] UA Auto SS Bilirubin Ql (U) Negative [...] AM) Normal Negative [facility] UA Auto SS [place].plasma/[place] .RBC (Bld) [Mass ratio] 0-3 /HPF Normal [...] [facility] UA Auto SS Urobilinogen Qn (U) 0.3704404 {Rola'U}/dL Normal 0.0 - 1.0 EU/dL [facility] UA Auto SS WBC Auto Ql (U) Trace *ABN* (06/14/23 10:13 AM) Invalid Interpretation Code Negative [facility] UA Auto SS WBC LM.HPF (Urine sed) [#/Area] 0-5 /HPF Normal 0-5/HPF [facility] UA Auto SS US 1st Trimesteron 06-14-2023 US 1st Trimester Normal [facility] eGFRon 06-14-2023 GFR/1.73 sq M.predicted among non-blacks MDRD (S/P/Bld) [Vol rate/Area] 130 mL/min/1.73 m2 Normal >=59 [facility] Comment on above: Order Comment: Order added by Discern Expert. Result Comment: Unisaw Operator lucy kidney disease could be indicated at eGFR's of less than 60 mL/min/1.73m2. Kidney failure is indicated at less than 15 mL/min/1.73m2. Performed By: #### 2 059967, 6651931, 5227806, 9486338, 4612727, 26217056 ####[facility] [address] [place] [address] CHEMISTRYOrdered By: SYSTEM SYSTEM on 06-12-2023 TSH Qn 3.80 m[IU]/L Normal 0.34 - 5.60 mcIU/mL [facility] Remisol Consent for Treatmenton 05-16 Consent for Treatment [id number]#1.00CD:12 7 Normal [facility] Physician Orderon 06-12-2023 Physician Order [id number]#1.00CD:12 7 Normal [facility] TSHon 06-12-2023 TSH Qn 3.80 m[IU]/L Normal 0.34-5.60 [facility] Comment on above: Performed By: #### 2 642095 ####[facility] [address] [place] [address] BhCG Quanton 05-22-2023 HCG.beta subunit Qn 305132 m[IU]/mL High 1-3 [facility] Comment on above: Result Comment: GEST ATIONAL AGE HCG RANGE (mIU/mL) NON- <1-3 0.2-1 WEEKS 5-50 1-2 WEEKS 50-500 2-3 WEEKS 100-5,000 3-4 WEEKS 500-10,000 4-5 WEEKS 1,000-50,000 5-6 WEEKS 10,000-100,000 6-8 WEEKS 15,000-200,000 8-12 WEEKS 10,000-100,000 Performed By: #### 2 553566 ####[facility] [address] [place] [address] Discharge Instructionson Discharge Instructions [id number]#1.00CD:1 27 Normal [facility] ED Clinical Summaryon 2022 ED [facility]on 05-22-20 23 ED Note-Physician Normal [facility] Comment on above: Result Comment: Elec tronically Signed By: Gopi Rodriguez DO\.br\Date and Time Signed: 05/21/23 23:17 EDT ED Patient Education Noteon 05-22-2023 ED Patient Education Note Normal [facility] ED Patient Summaryon 023 ED Patient Summary Normal [facility] UA With Cult Reflexon 2022 Bacteria LM Ql (Urine sed) TRACE Normal Trace [facility] Comment on above: Performed By: #### 1 [id number] ####[facility] [address] [place] [address] Bilirubin Ql (U) Negative Normal Negative [facility] Comment on above: Performed By: #### 1 4734519 ####[facility] [address] [place] [address] Clarity (U) CLEAR Normal Clear [facility] Comment on above: Performed By: #### 1 2661024 ####[facility] [address] [place] [address] Color (U) DARK YELLO Abnormal Yellow [facility] Comment on above: Performed By: #### 1 7689886 ####[facility] [address] [place] [address] Epithelial cells.squamous LM.HPF (Urine sed) [#/Area] 0-2 Normal 0-2 [facility] Comment on above: Performed By: #### 1 0258709 ####[facility] [address] [place] [address] Glucose Test strip (U) [Mass/Vol] Negative Normal Negative [facility] Comment on above: Performed By: #### 1 5100087 ####[facility] [address] [place] [address] Hemoglobin Ql (U) TRACE Abnormal Negative [facility] Comment on above: Performed By: #### 1 7347191 ####[address] [address] Ketones (U) [Mass/Vol] TRACE Abnormal Negative [facility] Comment on above: Performed By: #### 1 4215033 ####[facility] [address] [place] [address] [place].plasma/[place] .RBC (Bld) [Mass ratio] 4-20 Normal 0-3 [facility] Comment on above: Performed By: #### 1 3117409 ####[address] [address] Mucus Ql (Urine sed) 1+ Normal [facility] Comment on above: Performed By: #### 1 1972184 ####[facility] [address] [place] [address] Nitrite Ql (U) Negative Normal Negative [facility] Comment on above: Performed By: #### 1 2509560 ####[address] [address] pH (U) 6.0 [pH] Invalid Interpretation Code 5.0-9.0 [facility] Comment on above: Performed By: #### 1 2417253 ####[facility] [address] [place] [address] Protein (U) [Mass/Vol] 2+ Abnormal Negative [facility] Comment on above: Performed By: #### 1 2537008 ####[address] [address] Specific gravity (U) [Rel density] >=1.030 Invalid Interpretation Code 1.005-1.030 [facility] Comment on above: Performed By: #### 1 0284286 ####[address] [place] [address] Type of Urine collection method Clean Catch Normal [facility] Comment on above: Performed By: #### 1 4741483 ####[address] [address] Urobilinogen Qn (U) 0.2 {Rola'U}/dL Normal 0.0-1.0 [facility] Comment on above: Performed By: #### 1 4290487 ####[address] [address] WBC Auto Ql (U) Negative Normal Negative [facility] Comment on above: Performed By: #### 1 3870904 ####[address] [address] WBC LM.HPF (Urine sed) [#/Area] 0-5 Normal 0-5 [facility] Comment on above: Performed By: #### 1 9477586 ####[address] [address] US 1st Trimesteron 05-22-2023 US 1st Trimester Normal [facility] Auto Diffon 05-21-2023 Basophils/100 WBC (Bld) 1.0 % Normal 0.0-2.0 [facility] Comment on above: Order Comment: Order Added by Discern Expert. Performed By: #### 2 240069, 8783959, 36995997, 98834056, 0912329, 4551097, 4735092 ####[address] [address] Basophils/Leukocytes Auto (Bld) [Pure # fraction] 0.1 E9/L Normal 0.0-0.2 [facility] Comment on above: Order Comment: Order Added by Discern Expert. Performed By: #### 2 293249, 3862704, 80917655, 63105873, 5067141, 4062893, 1002738 ####[address] [place] [address] Eosinophils/100 WBC (Bld) 1.5 % Normal 0.0-8.0 [facility] Comment on above: Order Comment: Order Added by Discern Expert. Performed By: #### 2 961095, 7379990, 02326480, 56595986, 4653184, 8551266, 5901284 ####[facility] [address] [place] [address] Eosinophils/Leukocytes Auto (Bld) [Pure # fraction] 0.1 E9/L Normal 0.0-0.5 [facility] Comment on above: Order Comment: Order Added by Discern Expert. Performed By: #### 2 045628, 7660739, 48561415, 52863082, 8616062, 2487850, 4946881 ####[address] [address] Lymphocytes/100 WBC (Bld) 36.6 % Normal 14.0-50.0 [facility] Comment on above: Order Comment: Order Added by Discern Expert. Performed By: #### 2 467397, 1266003, 44240465, 20694054, 3356415, 8215871, 0268086 ####[address] [address] Lymphocytes/Leukocytes Auto (Bld) [Pure # fraction] 2.5 E9/L Normal 1.0-4.0 [facility] Comment on above: Order Comment: Order Added by Discern Expert. Performed By: #### 2 453245, 8224639, 34115556, 44651639, 9589149, 2560898, 8420754 ####[address] [place] [address] Monocytes/100 WBC (Bld) 8.2 % Normal 4.0-14.0 [facility] Comment on above: Order Comment: Order Added by Discern Expert. Performed By: #### 2 989168, 9915352, 20396710, 59067040, 5367948, 8485665, 7515733 ####[address] [place] [address] Monocytes/Leukocytes Auto (Bld) [Pure # fraction] 0.6 E9/L Normal 0.2-1.0 [facility] Comment on above: Order Comment: Order Added by Discern Expert. Performed By: #### 2 688526, 7583802, 03785560, 91726060, 4624844, 9830513, 0417075 ####[facility] [address] [place] [address] Neutrophils/100 WBC (Bld) 52.7 % Normal 36.0-75.0 [facility] Comment on above: Order Comment: Order Added by Discern Expert. Performed By: #### 2 528270, 5585555, 30713640, 55821402, 9121099, 3535013, 6016348 ####[facility] [address] [place] [address] Neutrophils/Leukocytes Auto (Bld) [Pure # fraction] 3.6 E9/L Normal 2.0-7.5 [facility] Comment on above: Order Comment: Order Added by Discern Expert. Performed By: #### 2 179315, 1186980, 00433294, 47928733, 1448204, 3148201, 3875105 ####[facility] [address] [place] [address] BMPon 05-21-2023 Creatinine [Mass/Vol] 0.7 mg/dL Normal 0.5-1.3 [facility] Comment on above: Performed By: #### 2 676081, 3433453, 79883926, 89376190, 4839143, 5214413, 8630794 ####[facility] [address] [place] [address] Urea nitrogen [Mass/Vol] 8 mg/dL Normal 5-21 [facility] Comment on above: Performed By: #### 2 292803, 0604958, 95375261, 17314783, 5449421, 0319148, 9830395 ####[facility] [address] [place] [address] Urea nitrogen/Creatinine [Mass ratio] 11 No Units Normal 10-20 [facility] Comment on above: Performed By: #### 2 570168, 4868208, 36665968, 94320219, 3749248, 9971215, 1064736 ####[facility] [address] [place] [address] Anion gap [Moles/Vol] 12 mmol/L Normal 6-16 [facility] Comment on above: Performed By: #### 2 984013, 0540061, 72263084, 41693449, 5503898, 9882577, 5474373 ####[facility] [address] [place] [address] Calcium [Mass/Vol] 9.2 mg/dL Normal 8.9-11.1 [facility] Comment on above: Performed By: #### 2 444587, 5153842, 55252833, 04873410, 0957149, 7579558, 4757103 ####[facility] [address] [place] [address] Chloride [Moles/Vol] 104 mmol/L Normal 101-111 [facility] Comment on above: Performed By: #### 2 538659, 6084604, 19990486, 93975450, 5994592, 1403158, 4395810 ####[facility] [address] [place] [address] CO2 [Moles/Vol] 24 mmol/L Normal 21-31 [facility] Comment on above: Performed By: #### 2 496792, 3291309, 45514109, 74717498, 4754352, 3824269, 6624324 ####[facility] [address] [place] [address] Glucose [Mass/Vol] 87 mg/dL Normal 55-199 [facility] Comment on above: Result Comment: If t his glucose result represents a fasting glucose, interpretation should refer to the following reference range: 55-99 mg/dL Performed By: #### 2 502802, 1334496, 37023839, 46201639, 9739652, 9845434, 7130032 ####[facility] [address] [place] [address] Potassium [Moles/Vol] 3.2 mmol/L Low 3.5-5.3 [facility] Comment on above: Performed By: #### 2 452791, 8755349, 00122458, 10670120, 1196393, 5122777, 3014547 ####[facility] [address] [place] [address] Sodium [Moles/Vol] 137 mmol/L Normal 135-145 [facility] Comment on above: Performed By: #### 2 651712, 7446419, 68411690, 46259630, 2467749, 8872877, 7516335 ####[facility] [address] [place] [address] CBC w/ Auto Diffon Erythrocyte distribution width (RBC) [Ratio] 13.3 % Normal 10.9-14.2 [facility] Comment on above: Performed By: #### 2 793949, 8485368, 48021859, 18248810, 9968016, 1703247, 2736303 ####[facility] [address] [place] [address] Hematocrit (Bld) [Volume fraction] 39.0 % Normal 34.0-46.0 [facility] Comment on above: Performed By: #### 2 410277, 8127234, 37452974, 10969247, 8725635, 7568894, 3588687 ####[facility] [address] [place] [address] Hemoglobin (Bld) [Mass/Vol] 13.3 g/dL Normal 12.0-16.0 [facility] Comment on above: Performed By: #### 2 665701, 5836453, 39293195, 34784290, 0879778, 1700486, 5320279 ####[facility] [address] [place] [address] MCH (RBC) [Entitic mass] 30.3 pg Normal 27.0-34.0 [facility] Comment on above: Performed By: #### 2 993948, 4246017, 90954268, 53761727, 4599399, 9629472, 8788870 ####[facility] [address] [place] [address] MCHC (RBC) [Mass/Vol] 34.2 g/dL Normal 31.4-36.0 [facility] Comment on above: Performed By: #### 2 714263, 1377188, 57238876, 05089034, 6912645, 2931149, 9124110 ####[facility] [address] [place] [address] MCV (RBC) [Entitic vol] 88.7 fL Normal 80.0-100.0 [facility] Comment on above: Performed By: #### 2 772431, 1362588, 85258306, 18847528, 3843880, 8864641, 1878727 ####[address] [address] Platelet mean volume (Bld) [Entitic vol] 7.8 fL Normal 6.4-10.8 [facility] Comment on above: Performed By: #### 2 426629, 3424290, 02092695, 25209693, 1969514, 3796035, 1813343 ####[address] [address] Platelets (Bld) [#/Vol] 225.0 E9/L Normal 150.0-500.0 [facility] Comment on above: Performed By: #### 2 856692, 3439074, 19125806, 76499588, 8050217, 4876152, 7407623 ####[address] [address] RBC (Bld) [#/Vol] 4.4 E12/L Normal 4.3-5.9 [facility] Comment on above: Performed By: #### 2 985741, 5242956, 89964170, 83364914, 5536337, 5961767, 3699859 ####[facility] [address] [place] [address] WBC corrected for nucl RBC Auto (Bld) [#/Vol] 6.8 E9/L Normal 4.0-11.0 [facility] Comment on above: Performed By: #### 2 737331, 8195441, 74232084, 24709682, 0348738, 6839431, 2445548 ####[facility] [address] [place] [address] CHEMISTRYOrdered By: SYSTEM SYSTEM on 05-21-2023 HCG.beta subunit Qn 122567 m[IU]/mL High 1 - 3 mIU/mL [facility] [...] Remisol Consent for Treatmenton Consent for Treatment [id number]#1.00CD:12 7 Normal [facility] HEMATOLOGYOrdered By: SYSTEM SYSTEM on 05-21-2023 [...] 6.8 E9/L Normal 4.0 - 11.0 E9/L [facility] HemeAutoSS Hep Func Panelon 05-21-2023 Bilirubin.indirect [Mass or moles/Vol] UT Abnormal 0.1-0.9 [facility] Comment on above: Result Comment: Resu lt verified by Discern Rule. Performed result UT (Unable to Calculate) was sent as an Alpha code due the inability to calculate a valid numeric value. Performed By: #### 2 284438, 4228019, 11084205, 95265651, 8182342, 4092962, 4275673 ####[facility] [address] [place] [address] Albumin [Mass/Vol] 3.8 g/dL Normal 3.3-5.0 [facility] Comment on above: Performed By: #### 2 805841, 4820141, 76829872, 33095105, 9234349, 1251428, 6792908 ####[facility] [address] [place] [address] Albumin/Globulin (S) [Mass conc ratio] 1.2 Normal 1.1-2.2 [facility] Comment on above: Performed By: #### 2 160142, 5391230, 42768504, 05643092, 5540089, 4591057, 7408161 ####[facility] [address] [place] [address] ALP [Catalytic activity/Vol] 42 Int._Unit/L Normal 21-98 [facility] Comment on above: Performed By: #### 2 939840, 9731017, 26140317, 37592554, 0052079, 9777888, 8032999 ####[facility] [address] [place] [address] ALT No additional P-5'-P [Catalytic activity/Vol] 13 Int._Unit/L Normal 6-46 [facility] Comment on above: Performed By: #### 2 266957, 4342098, 67279654, 92060482, 9509149, 1179513, 0961788 ####[facility] [address] [place] [address] AST [Catalytic activity/Vol] 14 Int._Unit/L Normal 5-43 [facility] Comment on above: Performed By: #### 2 820613, 7801433, 01098572, 46065231, 6607384, 2880248, 2301896 ####[facility] [address] [place] [address] Bilirubin [Mass/Vol] 0.5 mg/dL Normal 0.0-1.1 [facility] Comment on above: Performed By: #### 2 220880, 5855827, 80344884, 86142337, 2610561, 5302843, 8575930 ####[address] [address] Globulin (S) [Mass/Vol] 3.1 g/dL Normal 1.4-4.0 [facility] Comment on above: Performed By: #### 2 711990, 9931744, 62453607, 74865209, 3630351, 3014654, 5440880 ####[facility] [address] [place] [address] Protein [Mass/Vol] 6.9 g/dL Normal 6.0-7.8 [facility] Comment on above: Performed By: #### 2 054527, 0060093, 44522973, 27710997, 4560419, 1301565, 0209778 ####[address] [address] Bilirubin.direct [Mass/Vol] mg/dL Normal 0.1-0.4 [facility] Comment on above: Performed By: #### 2 014883, 7809370, 74922178, 22756767, 1245818, 4991939, 0454928 ####[facility] [address] [place] [address] Lipase Levelon 05-21-2023 Lipase [Catalytic activity/Vol] 31 U/L Normal 13-58 [facility] Comment on above: Performed By: #### 2 494165, 9429546, 60348714, 31551662, 8633165, 4285661, 4145257 ####[facility] [address] [place] [address] Troponin 0 Hr.on 05-21-2023 Troponin I.cardiac [Mass/Vol] 2.50 pg/mL Low 10.10-27.10 [facility] Comment on above: Result Comment: The 95% CI (Confidence Interval) PPV (Positive Predictive Value) for myocardial infarction in females is 38 pg/mL, in males 51 pg/mL. The results should be used in conjunction with clinical conditions of myocardial infarction.(Access High Sensitivity Troponin I Instructions For Use, [place], May 2018) Performed By: #### 2 941750, 4241326, 81591047, 46310010, 7018637, 0567653, 9343060 ####[facility] [address] [place] [address] URINALYSISOrdered By: Jose Miguel nelson on 05-21-2023 [...] Interpretation Code Negative [facility] UA Auto SS [place].plasma/[place] .RBC (Bld) [Mass ratio] 4-20 /HPF Normal [...] FT UA Auto SS Urobilinogen Qn (U) 0.5230432 {Rola'U}/dL Normal 0.0 - 1.0 EU/dL [facility] UA Auto SS WBC Auto Ql (U) Negative (05/21/23 10:17 PM) Normal Negative [facility] UA Auto SS WBC LM.HPF (Urine sed) [#/Area] 0-5 /HPF Normal 0-5/HPF FT UA Auto SS eGFRon 05-21-2023 GFR/1.73 sq M.predicted among non-blacks MDRD (S/P/Bld) [Vol rate/Area] 120 mL/min/1.73 m2 Normal >=59 [facility] Comment on above: Order Comment: Order added by Discern Expert. Result Comment: Unisaw Operator lucy kidney disease could be indicated at eGFR's of less than 60 mL/min/1.73m2. Kidney failure is indicated at less than 15 mL/min/1.73m2. Performed By: #### 2 154694, 8982044, 87908552, 06421894, 8027119, 1347256, 2012051 ####[facility] [address] [place] [address] PAP [id number] 05-03-2023 C. trachomatis rRNA MAHAD+probe Ql (Cvx) Negative Invalid Interpretation Code Negative [facility] Comment on above: Performed By: #### 3 [id number] ####[facility] [address] [place] [address] Cytology report Cyto stain Doc (Cvx/Vag) Note Invalid Interpretation Code [facility] Comment on above: Result Comment: TEST S RESULT FLAG UNITS REF RANGE LAB Clinician Provided Cytology InformationSource.............EndocervixNo. of containers..01 ThinPrep VialDIAGNOSIS: 01NEGATIVE FOR INTRAEPITHELIAL LESION OR MALIGNANCY.Specimen adequacy: 01Satisfactory for evaluation. Endocervical and/or squamous metaplasticcells (endocervical component) are present.Performed by: Eliana Shea Psychologist Personnel (ASCP). 01Note: Note 01The Pap smear is [...] Normal,LL-Alert Low,HH-Alert High<-Panic Low,>-Panic High,A-Abnormal,AA-Critical Abnormal -----Performed at:[facility] Lab[address]za[place] [address]Ugjkrm S Bendre MD, Performed By: #### 3 [id number] ####[facility] [address] [place] [address] N. gonorrhoeae rRNA MAHAD+probe Ql (Cvx) Negative Invalid Interpretation Code Negative [facility] Comment on above: Result Comment: Perf ormed at: [facility] Rsehxvavuq[address] [facility] [place], [place] [id number] MD Anton HinsonPerformed at: =G [facility] Ghzvtktpqj976 [facility] [place], [place] [id number] MD Anton Hinson Performed By: #### 3 [id number] ####[facility] [address] [place] [address] C Urineon 05-02-2023 Bacteria identified Cx Nom (U) Normal [facility] Comment on above: Performed By: #### 2 405187 ####[facility] [address]rounbqhdm[address] [place] [address] HIV Screen 4th Generation wR fxon 05-01-2023 HIV 1+2 Ab+HIV1 p24 Ag IA Ql Non-Reactive Invalid Interpretation Code Non Reactive [facility] Comment on above: Result Comment: HIV NegativeHIV-1/HIV-2 antibodies and HIV-1 p24 antigen were NOT detected.There is no laboratory evidence of HIV infection.Performed at: [facility] [address] [place], [place] [id number] PhD Caroline East Performed By: #### 1 82271479, 43712283, 244974687, 7670746, 4694586 ####[facility] [address] [place] [address] Hep Bs Agon 05-01-2023 HBV surface Ag IA Ql Negative Invalid Interpretation Code Negative [facility] Comment on above: Result Comment: Perf ormed at: [facility] Jdzerv[address] [place], [place] [id number] PhD Caroline East Performed By: #### 1 [id number], 62305909, 144644418, 9329059, 1884078 ####[facility] [address] [place] [address] RPR with Conf Rfxon 05-01-20 Reagin Ab RPR Ql (S) Non-Reactive Invalid Interpretation Code Non Reactive [facility] Comment on above: Result Comment: Perf ormed at: [id number] [place], [place] [id number] PhD Caroline East Performed By: #### 1 [id number], 49935334, 937136416, 1253119, 4620209 ####[address] [address] Rubella IgGon 05-01-2023 Rubella virus IgG Qn (S) [IU]/mL Low Immune >0.99 [facility] Comment on above: Result Comment: Non- immune <0.90Equivocal 0.90 - 0.99Immune >0.99Performed at: [id number] [place], [place] [id number] PhD Caroline East Performed By: #### 1 [id number], 75175688, 076459147, 3378824, 4329959 ####[address] [address] ABO/Rhon 04-30-2023 ABO/Rh Positive Invalid Interpretation Code [facility] Comment on above: Performed By: #### 2 941356, [id number] ####[address] [address] ABSCon 04-30-2023 ABSC Gel Interp Negative Normal [facility] Comment on above: Performed By: #### 2 955070, 51529832 ####[address] [address] BLOOD BANKOrdered By: Diamond Junior on 04-30-2023 ABO/Rh Interp Positive Invalid Interpretation Code [facility] BB Subsection ABSC Gel Interp Negative (04/30/23 9:30 AM) Normal [facility] BB Subsection BhCG Quanton 04-30-2023 [place] [address] m[IU]/mL High 1-[address] [facility] Comment on above: Result Comment: GEST ATIONAL AGE HCG RANGE (mIU/mL) NON- <1-3 0.2-1 WEEKS 5-50 1-2 WEEKS 50-500 2-3 WEEKS 100-5,000 3-4 WEEKS 500-10,000 4-5 WEEKS 1,000-50,000 5-6 WEEKS 10,000-100,000 6-8 WEEKS 15,000-200,000 8-12 WEEKS 10,000-100,000 Performed By: #### 2 959715 ####[facility] [address] [place] [address] CBC w/Indiceson 04-30-2023 Erythrocyte distribution width (RBC) [Ratio] 13.7 % Normal 10.9-14.2 [facility] Comment on above: Performed By: #### 1 11674764, 56813786, 140968547, 8573887, 8402639 ####[facility] [address] [place] [address] Hematocrit (Bld) [Volume fraction] 40.7 % Normal 34.0-46.0 [facility] Comment on above: Performed By: #### 1 15013950, 49952615, 782324414, 9816806, 0328197 ####[facility] [address] [place] [address] Hemoglobin (Bld) [Mass/Vol] 13.8 g/dL Normal 12.0-16.0 [facility] Comment on above: Performed By: #### 1 77444315, 86799291, 649223839, 7771007, 9914460 ####[facility] [address] [place] [address] MCH (RBC) [Entitic mass] 30.5 pg Normal 27.0-34.0 [facility] Comment on above: Performed By: #### 1 63494321, 06969570, 277268598, 7971245, 0557189 ####[facility] [address] [place] [address] MCHC (RBC) [Mass/Vol] 33.9 g/dL Normal 31.4-36.0 [facility] Comment on above: Performed By: #### 1 93566063, 44864352, 062884330, 4078685, 1484958 ####[address] [place] [address] MCV (RBC) [Entitic vol] 89.9 fL Normal 80.0-100.0 [facility] Comment on above: Performed By: #### 1 59562758, 85108036, 586615752, 9326627, 2985799 ####[place] [place] [address] Platelet mean volume (Bld) [Entitic vol] 8.2 fL Normal 6.4-10.8 [facility] Comment on above: Performed By: #### 1 17731717, 74422616, 331755094, 4427519, 8072937 ####[place] [address] Platelets (Bld) [#/Vol] 279.0 E9/L Normal 150.0-500.0 [facility] Comment on above: Performed By: #### 1 42185068, 45842824, 213765823, 9937184, 4556361 ####[address] [address] RBC (Bld) [#/Vol] 4.5 E12/L Normal 4.3-5.9 [facility] Comment on above: Performed By: #### 1 10389320, 32633488, 388206712, 2513796, 7310042 ####[address] [place] [address] WBC corrected for nucl RBC Auto (Bld) [#/Vol] 5.8 E9/L Normal 4.0-11.0 [facility] Comment on above: Performed By: #### 1 97160464, 16866267, 121788466, 8524020, 2624144 ####[facility] [address] [place] [address] CHEMISTRYOrdered By: SYSTEM SYSTEM on 04-30-2023 [place] [address] m[IU]/mL High 1 - 3 mIU/mL [facility] Remisol Consent for Treatmenton 04-14 Consent for Treatment [id number]#1.00CD:12 7 Normal [facility] HEMATOLOGYOrdered By: Temi Romero on 04-30-2023 [...] 4.0 - 11.0 E9/L [facility] HemeAutoSS PAP [id number] 04-30-2023 Collection Technique BRUSH-SPATULA Normal [facility] Comment on above: Performed By: #### 3 [id number] ####[facility] [address] [place] [address] Gynecological Body Site ENDOCERVIX Normal [facility] Comment on above: Performed By: #### 3 [id number] ####[facility] [address] [place] [address] Physician Orderon 04-30-2023 Physician Order [id number]#1.00CD:1 [facility] Physician Order [id number]#1.00CD:1 27 [facility] BhCG Quanton 04-26-2023 [place] [address] m[IU]/mL High 1-[address] [facility] Comment on above: Result Comment: GEST ATIONAL AGE HCG RANGE (mIU/mL) NON- <1-3 0.2-1 WEEKS 5-50 1-2 WEEKS 50-500 2-3 WEEKS 100-5,000 3-4 WEEKS 500-10,000 4-5 WEEKS 1,000-50,000 5-6 WEEKS 10,000-100,000 6-8 WEEKS 15,000-200,000 8-12 WEEKS 10,000-100,000 Performed By: #### 2 113979 ####[facility] [address] [place] [address] CHEMISTRYOrdered By: SYSTEM SYSTEM on 04-26-2023 [place] [address] m[IU]/mL High 1 - 3 mIU/mL [facility] Remisol Consent for Treatmenton 04-14 Consent for Treatment [id number]#1.00CD:12 7 [facility] Discharge Instructionson Discharge Instructions [id number]#1.00CD:1 27 [facility] ED Clinical Summaryon 2022 ED Clinical Summary Normal [facility] ED Note-Physicianon 04-26-20 ED Note-Physician [facility] Comment on above: Result Comment: Elec tronically Signed By: Tram NICHOLS, Jos\.br\Date and Time Signed: 04/26/23 10:59 EDT\.br\Electronically Co-Signed By: Laura Noel M.D.\.br\Date and Time Co-Signed: 04/26/23 11:01 EDT ED Patient Education Noteon 04-26-2023 ED Patient Education Note Normal [facility] ED Patient Summaryon 023 ED Patient Summary Normal [facility] UA With Cult Reflexon 2022 Bilirubin Ql (U) Negative Normal Negative [facility] Comment on above: Performed By: #### 1 5853071 ####[facility] [address] [place] [address] Clarity (U) CLEAR Normal Clear [facility] Comment on above: Performed By: #### 1 9886876 ####[facility] [address] [facility] [place] [address] Color (U) YELLOW Normal Yellow [facility] Comment on above: Performed By: #### 1 0054990 ####[facility] [address] [facility] [place] [address] Crystals LM Ql (Urine sed) Present Normal [facility] Comment on above: Performed By: #### 1 1206550 ####[facility] [address] [facility] [place] [address] Epithelial cells.squamous LM.HPF (Urine sed) [#/Area] 0-2 Normal 0-2 [facility] Comment on above: Performed By: #### 1 2818697 ####[facility] [address] [facility] [place] [address] Glucose Test strip (U) [Mass/Vol] Negative Normal Negative [facility] Comment on above: Performed By: #### 1 0450570 ####[facility] [address] [facility] [place] [address] Hemoglobin Ql (U) Negative Normal Negative [facility] Comment on above: Performed By: #### 1 0715851 ####[facility] [address] [facility] [place] [address] Ketones (U) [Mass/Vol] Negative Normal Negative [facility] Comment on above: Performed By: #### 1 3167441 ####[address] [address] [place].plasma/[place] .RBC (Bld) [Mass ratio] 0-3 Normal 0-3 [facility] Comment on above: Performed By: #### 1 0837838 ####[address] [address] Mucus Ql (Urine sed) 2+ Normal [facility] Comment on above: Performed By: #### 1 1785949 ####[address] [address] Nitrite Ql (U) Negative Normal Negative [facility] Comment on above: Performed By: #### 1 3575413 ####[address] [address] pH (U) 8.5 [pH] Invalid Interpretation Code 5.0-9.0 [facility] Comment on above: Performed By: #### 1 1406639 ####[address] [address] Protein (U) [Mass/Vol] Negative Normal Negative [facility] Comment on above: Performed By: #### 1 4369710 ####[address] [address] Specific gravity (U) [Rel density] 1.015 Invalid Interpretation Code 1.005-1.030 [facility] Comment on above: Performed By: #### 1 8904116 ####[address] [address] Type of Urine collection method Clean Catch Normal [facility] Comment on above: Performed By: #### 1 7541293 ####[address] [address] Urobilinogen Qn (U) 1.0 {Rola'U}/dL Normal 0.0-1.0 [facility] Comment on above: Performed By: #### 1 2778474 ####[facility] [address] [place] [address] WBC Auto Ql (U) Negative Normal Negative [facility] Comment on above: Performed By: #### 1 2618868 ####[facility] [address] [place] [address] WBC LM.HPF (Urine sed) [#/Area] 0-5 Normal 0-5 [facility] Comment on above: Performed By: #### 1 6474295 ####[facility] [address] [place] [address] URINALYSISOrdered By: An Lassiter on 04-26-2023 Bilirubin [...] AM) Normal Negative [facility] UA Auto SS [place].plasma/[place] .RBC (Bld) [Mass ratio] 0-3 /HPF Normal [...] [Mass/Vol] Negative (04/26/23 9:15 AM) Normal Negative [facility] UA Auto SS Specific gravity (U) [Rel density] 1.015 *NA* (04/26/23 9:15 AM) Invalid Interpretation Code 1.005 - 1.030 [facility] UA Auto SS UA Spec Desc Clean Catch (04/26/23 9:15 AM) Normal [facility] UA Auto SS Urobilinogen Qn (U) 1.0727185 {Rola'U}/dL Normal 0.0 - 1.0 EU/dL [facility] UA Auto SS WBC Auto Ql (U) Negative (04/26/23 9:15 AM) Normal Negative [facility] UA Auto SS WBC LM.HPF (Urine sed) [#/Area] 0-5 /HPF Normal 0-5/HPF [facility] UA Auto SS US 1st Trimesteron 04-26-2023 US 1st Trimester Normal [facility] US Transvaginalon 04-26-2023 Transvaginal Normal [facility] Coding Summary.on 02-02-2023 Coding Summary. Normal [facility] Auto Diffon 01-31-2023 Basophils/100 WBC (Bld) 0.3 % Normal 0.0-2.0 [facility] Comment on above: Order Comment: Order Added by Discern Expert. Performed By: #### 2 070400, 6193421, 68465050, 6084150 ####[facility] [address] [place] [address] Basophils/Leukocytes Auto (Bld) [Pure # fraction] 0.0 E9/L Normal 0.0-0.2 [facility] Comment on above: Order Comment: Order Added by Discern Expert. Performed By: #### 2 582548, 7656085, 15457758, 4333212 ####[facility] [address] [place] [address] Eosinophils/100 WBC (Bld) 2.8 % Normal 0.0-8.0 [facility] Comment on above: Order Comment: Order Added by Discern Expert. Performed By: #### 2 146799, 4746310, 48542369, 0207476 ####[facility] [address] [place] [address] Eosinophils/Leukocytes Auto (Bld) [Pure # fraction] 0.1 E9/L Normal 0.0-0.5 [facility] Comment on above: Order Comment: Order Added by Discern Expert. Performed By: #### 2 503455, 7809278, 70980795, 4324862 ####[address] [address] Lymphocytes/100 WBC (Bld) 30.0 % Normal 14.0-50.0 [facility] Comment on above: Order Comment: Order Added by Discern Expert. Performed By: #### 2 066420, 9251178, 82109280, 7443227 ####[address] [address] Lymphocytes/Leukocytes Auto (Bld) [Pure # fraction] 1.5 E9/L Normal 1.0-4.0 [facility] Comment on above: Order Comment: Order Added by Gisselle Expert. Performed By: #### 2 063923, 5072857, 73471600, 9318462 ####[address] [address] Monocytes/100 WBC (Bld) 7.0 % Normal 4.0-14.0 [facility] Comment on above: Order Comment: Order Added by Discern Expert. Performed By: #### 2 121182, 5193512, 95529560, 0354400 ####[address] [address] Monocytes/Leukocytes Auto (Bld) [Pure # fraction] 0.4 E9/L Normal 0.2-1.0 [facility] Comment on above: Order Comment: Order Added by Discern Expert. Performed By: #### 2 461400, 7210555, 68554085, 2097237 ####[address] [place] [address] Neutrophils/100 WBC (Bld) 59.9 % Normal 36.0-75.0 [facility] Comment on above: Order Comment: Order Added by Discern Expert. Performed By: #### 2 597342, 8708901, 78607604, 3754896 ####[facility] [address] [place] [address] Neutrophils/Leukocytes Auto (Bld) [Pure # fraction] 3.1 E9/L Normal 2.0-7.5 [facility] Comment on above: Order Comment: Order Added by Discern Expert. Performed By: #### 2 359115, 3519293, 90411955, 8364052 ####[facility] [address] [place] [address] B hCG Qualon 01-31-2023 Beta hCG Ql Negative Normal [facility] Comment on above: Performed By: #### 2 3663101, 01798975 ####[facility] [address] [place] [address] BMPon 01-31-2023 Creatinine [Mass/Vol] 0.8 mg/dL Normal 0.5-1.3 [facility] Comment on above: Performed By: #### 2 334003, 3269112, 20562923, 4644597 ####[facility] [address] [place] [address] Urea nitrogen [Mass/Vol] 9 mg/dL Normal 5-21 [facility] Comment on above: Performed By: #### 2 373058, 2130144, 75711244, 7802099 ####[facility] [address] [place] [address] Urea nitrogen/Creatinine [Mass ratio] 11 No Units Normal 10-20 [facility] Comment on above: Performed By: #### 2 250787, 2090427, 56402989, 6913938 ####[facility] [address] [place] [address] Anion gap [Moles/Vol] 12 mmol/L Normal 6-16 [facility] Comment on above: Performed By: #### 2 215710, 5224173, 18249003, 1165213 ####[facility] [address] [place] [address] Calcium [Mass/Vol] 9.1 mg/dL Normal 8.9-11.1 [facility] Comment on above: Performed By: #### 2 463582, 9453216, 26667136, 4870375 ####[facility] [address] [place] [address] Chloride [Moles/Vol] 104 mmol/L Normal 101-111 [facility] Comment on above: Performed By: #### 2 922264, 9477626, 75645883, 2819237 ####[facility] [address] [place] [address] CO2 [Moles/Vol] 23 mmol/L Normal 21-31 [facility] Comment on above: Performed By: #### 2 804810, 4049652, 72916587, 7675986 ####[facility] [address] [place] [address] Glucose [Mass/Vol] 84 mg/dL Normal 55-199 [facility] Comment on above: Result Comment: If t his glucose result represents a fasting glucose, interpretation should refer to the following reference range: 55-99 mg/dL Performed By: #### 2 957990, 6118296, 20181133, 0296275 ####[facility] [address] [place] [address] Potassium [Moles/Vol] 3.5 mmol/L Normal 3.5-5.3 [facility] Comment on above: Performed By: #### 2 714823, 5289413, 17944069, 4816612 ####[facility] [address] [place] [address] Sodium [Moles/Vol] 135 mmol/L Normal 135-145 [facility] Comment on above: Performed By: #### 2 638789, 5005730, 79789795, 0280701 ####[facility] [address] [place] [address] CBC w/ Auto Diffon 3 Erythrocyte distribution width (RBC) [Ratio] 12.9 % Normal 10.9-14.2 [facility] Comment on above: Performed By: #### 2 043402, 3113441, 01855712, 9171679 ####[address] [place] [address]857 Hematocrit (Bld) [Volume fraction] 46.4 % High 34.0-46.0 [facility] Comment on above: Performed By: #### 2 371835, 6621055, 61554498, 4410087 ####[place] [address] Hemoglobin (Bld) [Mass/Vol] 15.0 g/dL Normal 12.0-16.0 [facility] Comment on above: Performed By: #### 2 776733, 0224498, 00011701, 5781954 ####[place] [address] MCH (RBC) [Entitic mass] 28.6 pg Normal 27.0-34.0 [facility] Comment on above: Performed By: #### 2 340915, 7245092, 19574340, 6929667 ####[place] [address] MCHC (RBC) [Mass/Vol] 32.3 g/dL Normal 31.4-36.0 [facility] Comment on above: Performed By: #### 2 074381, 1252929, 38420270, 5006892 ####[place] [address] MCV (RBC) [Entitic vol] 88.5 fL Normal 80.0-100.0 [facility] Comment on above: Performed By: #### 2 763428, 4882954, 00457080, 8992826 ####[address] [address] Platelet mean volume (Bld) [Entitic vol] 7.9 fL Normal 6.4-10.8 [facility] Comment on above: Performed By: #### 2 775775, 7727488, 49305934, 7063182 ####[address] [place] [address] Platelets (Bld) [#/Vol] 300.0 E9/L Normal 150.0-500.0 [facility] Comment on above: Performed By: #### 2 283880, 2366333, 57534530, 0657876 ####[facility] [address] [place] [address] RBC (Bld) [#/Vol] 5.2 E12/L Normal 4.3-5.9 [facility] Comment on above: Performed By: #### 2 601904, 8841839, 14268480, 8117920 ####[facility] [address] [place] [address] WBC corrected for nucl RBC Auto (Bld) [#/Vol] 5.1 E9/L Normal 4.0-11.0 [facility] Comment on above: Performed By: #### 2 977328, 2578741, 69854125, 1460986 ####[facility] [address] [place] [address] CHEMISTRYOrdered By: SYSTEM SYSTEM on 01-31-2023 Anion gap [Moles/Vol] 12 mmol/L Normal 6 - 16 mEq/L [facility] Remisol Calcium [Mass/Vol] 9.1 mg/dL Normal 8.9 - 11. 1 mg/dL [facility] Chloride [Moles/Vol] 104 mmol/L Normal 101 - 1 11 mmol/L [facility] CO2 [Moles/Vol] 23 mmol/L Normal 21 - 31 mmol/L [facility] Remisol Creatinine [Mass/Vol] 0.8 mg/dL Normal 0.5 - 1.3 mg/dL [facility] GFR/1.73 sq M.predicted among blacks MDRD (S/P/Bld) [Vol rate/Area] mL/min/1.73 m2 Normal >=59mL/min/ 1.73 m2 [facility] Chem S GFR/1.73 sq M.predicted among non-blacks MDRD (S/P/Bld) [Vol rate/Area] mL/min/1.73 m2 Normal >=59mL/min/ 1.73 m2 [facility] Chem S Glucose [Mass/Vol] 84 mg/dL Normal 55 - 199 mg/dL [facility] Remisol Potassium [Moles/Vol] 3.5 mmol/L Normal 3.5 - 5.3 mmol/L [facility] Remisol Sodium [Moles/Vol] 135 mmol/L Normal 135 - 145 mmol/L [facility] Remisol Urea nitrogen [Mass/Vol] 9 mg/dL Normal 5 - 21 mg/dL [facility] Remisol Urea nitrogen/Creatinine [Mass ratio] 11 mg/mg Normal 10 - 20 [facility] Remisol COAGULATIONOrdered By: Disha Mccarty on 01-31-2023 aPTT Coag (PPP) [Time] 31.3 s Normal 25.1 - 36.5 second(s) [facility] Auto Coag INR Coag (PPP) [Relative time] 1.1 {INR} Invalid Interpretation Code [facility] Auto Coag PT Coag (PPP) [Time] 12.3 s Normal 9.4 - 1 2.5 second(s) [facility] Auto Coag CTA Headon 01-31-2023 CTA Head Normal [facility] Consent for Treatmenton 01-13 Consent for Treatment [id number]#1.00CD:12 7 Normal [facility] Discharge Instructionson Discharge Instructions [id number]#1.00CD:1 27 Normal [facility] ED Clinical Summaryon 2022 ED Clinical Summary Normal [facility] ED Note-Physicianon 02-01-20 ED Note-Physician Normal [facility] Comment on above: Result Comment: Elec tronically Signed By: Kristian Guillermo DO.br\Date and Time Signed: 01/31/23 14:00 EDT ED Patient Education Noteon 01-31-2023 ED Patient Education Note Normal [facility] ED Patient Summaryon 023 ED Patient Summary Normal [facility] HEMATOLOGYOrdered By: SYSTEM SYSTEM on 01-31-2023 Basophils/100 WBC (Bld) 0.3 % Normal 0.0 - 2.0 % [facility] HemeAutoSS Basophils/Leukocytes Auto (Bld) [Pure # fraction] [...] 300.0 E9/L Normal 150.0 - 500.0 E9/L [facility] HemeAutoSS RBC (Bld) [#/Vol] 5.2 E12/L Normal 4.3 - 5.9 E12/L [facility] HemeAutoSS WBC corrected for nucl RBC Auto (Bld) [#/Vol] 5.1 E9/L Normal 4.0 - 11.0 E9/L [facility] HemeAutoSS PT & PTTon 01-31-2023 aPTT Coag (PPP) [Time] 31.3 second(s) Normal 25.1-36.5 [facility] Comment on above: Result Comment: Para [...] the same coagulation reagent and instrumentation as [facility]. Currently there are no coagulation studies available worldwide for children to 14 days, and no normal ranges. Heparin therapeutic range (represented by Anti-Factor Xa activity of 0.2 - 0.4 U/mL) corresponds to PTT of 56.6 - 109.0 sec. Performed By: #### 2 6881145, [id number] ####[facility] [address] [place] [address] INR Coag (PPP) [Relative time] 1.1 {INR} Invalid Interpretation Code [facility] Comment on above: Result Comment: INR results are specifically intended to assess patients stabilized on long-term Anticoagulation therapy suggested INR?s ?Less Intensive Anticoagulation? 2.0 ? 3.0Conventional Range 3.0 ? 4.5 Performed By: #### 2 5579319, 49933667 ####[facility] [address] [place] [address] PT Coag (PPP) [Time] 12.3 second(s) Normal 9.4-12.5 [facility] Comment on above: Result Comment: 15 [...] the same coagulation reagent and instrumentation as [facility]. Currently there are no coagulation studies available worldwide for children to 14 days, and no normal ranges. Performed By: #### 2 [id number], [id number] ####[facility] [address] [place] [address] Pre-Arrival Noteon 3 Pre-Arrival Note Normal [facility] SEROLOGYOrdered By: Nova Mccarty on 01-31-2023 Beta hCG Ql Negative (01/31/23 10:14 AM) Normal [facility] Man Sero eGFRon 01-31-2023 GFR/1.73 sq M.predicted among blacks MDRD (S/P/Bld) [Vol rate/Area] mL/min/{1.73_m2} Normal >=59 [facility] Comment on above: Order Comment: Order added by Discern Expert. Result Comment: eGFR is race adjusted. AA=. Performed By: #### 2 774958, [id number], [id number], 0754820 ####[facility] [address] [place] [address] GFR/1.73 sq M.predicted among non-blacks MDRD (S/P/Bld) [Vol rate/Area] mL/min/{1.73_m2} Normal >=59 [facility] Comment on above: Order Comment: Order added by Discern Expert. Result Comment: Unisaw Operator lucy kidney disease could be indicated at eGFR's of less than 60 mL/min/1.73m2. Kidney failure is indicated at less than 15 mL/min/1.73m2. Performed By: #### 2 623845, 2279488, [id number], 7874758 ####[facility] [address] [place] [address] Nursing Assessmenton 023 Nursing Assessment [id number]#1.00CD:1 27 Normal [facility] Coding Summary.on 10-02-2022 Coding Summary. Normal [facility] Coding Summary. Normal [facility] Delivery Summaryon Delivery Summary Normal [facility] Comment on above: Result Comment: Elec tronically Signed By: Fabiana MARION, Luis Carlos Byrd\.br\Date and Time Signed: 09/29/22 09:25 EST General Message Officeon General Message Office Normal [facility] Insurance Correspondence Off iceon 09-28-2022 Insurance Correspondence Office [id number]#1.00CD:1 27 Normal [facility] Discharge Instructionson Discharge Instructions [id number]#1.00CD:12 7 Normal [facility] Inpatient Clinical Summaryon 09-27-2022 Inpatient Clinical Summary Normal [facility] Inpatient Patient Summaryon 09-27-2022 Inpatient Patient Summary Normal [facility] CBC w/Indiceson 09-26-2022 Erythrocyte distribution width (RBC) [Ratio] 13.1 % Normal 10.9-14.2 [facility] Comment on above: Performed By: #### 2 341715 ####[facility] [address] [place] [address] Hematocrit (Bld) [Volume fraction] 32.1 % Low 34.0-46.0 [facility] Comment on above: Performed By: #### 2 109721 ####[facility] [address] [place] [address] Hemoglobin (Bld) [Mass/Vol] 11.1 g/dL Low 12.0-16.0 [facility] Comment on above: Performed By: #### 2 426926 ####[address] [address] MCH (RBC) [Entitic mass] 30.9 pg Normal 27.0-34.0 [facility] Comment on above: Performed By: #### 2 096789 ####[address] [address] MCHC (RBC) [Mass/Vol] 34.5 g/dL Normal 31.4-36.0 [facility] Comment on above: Performed By: #### 2 967791 ####[address] [address] MCV (RBC) [Entitic vol] 89.7 fL Normal 80.0-100.0 [facility] Comment on above: Performed By: #### 2 832399 ####[address] [address] Platelet mean volume (Bld) [Entitic vol] 10.1 fL Normal 6.4-10.8 [facility] Comment on above: Performed By: #### 2 740757 ####[address] [address] Platelets (Bld) [#/Vol] 204.0 E9/L Normal 150.0-500.0 [facility] Comment on above: Performed By: #### 2 216860 ####[address] [address] RBC (Bld) [#/Vol] 3.6 E12/L Low 4.3-5.9 [facility] Comment on above: Performed By: #### 2 589977 ####[address] [address] WBC corrected for nucl RBC Auto (Bld) [#/Vol] 23.2 E9/L High 4.0-11.0 [facility] Comment on above: Performed By: #### 2 095176 ####[facility] [address] [place] [address] Nursing Assessmenton 022 Nursing Assessment [id number]#1.00CD:12 7 [facility] Progress Note-Physicianon Progress Note-Physician [facility] Comment on above: Result Comment: Elec tronically Signed By: Luis Carlos Jung MD\.br\Date and Time Signed: 09/26/22 08:19 EST Coding Summary.on 09-25-2022 Coding Summary. [facility] Coding Summary. [facility] Consenton 09-25-2022 Consent [id number]#1.00CD:1 27 [facility] Consent for Anesthesiaon Consent for Anesthesia [id number]#1.00CD:12 7 [facility] Discharge Instructionson Discharge Instructions [id number]#1.00CD:1 27 [facility] Help Me Grow Referralon 09-14 Help Me Grow Referral [id number]#1.00CD:12 7 [facility] Recordson Records [id number]#1.00CD:12 7 [facility] Progress Note-Physicianon Progress Note-Physician [facility] Comment on above: Result Comment: Elec tronically Signed By: Jimmy Corcoran Jr., DO.br\Date and Time Signed: 09/25/22 08:31 EST Progress Note-Physician [facility] Comment on above: Result Comment: Elec tronically Signed By: Corcoran Jr. DO, Jimmy G\.br\Date and Time Signed: 09/25/22 08:31 EST UA With Cult Reflexon 2021 Bilirubin Ql (U) Negative Normal Negative [facility] Comment on above: Order Comment: Urina ry Catheter Insertion triggered Urinalysis With Culture Reflex order by discern. Performed By: #### 1 [id number] ####[facility] [address] [place] [address] Clarity (U) CLEAR Normal Clear [facility] Comment on above: Order Comment: Urina ry Catheter Insertion triggered Urinalysis With Culture Reflex order by discern. Performed By: #### 1 9608537 ####[facility] [address] [place] [address] Color (U) YELLOW Normal Yellow [facility] Comment on above: Order Comment: Urina ry Catheter Insertion triggered Urinalysis With Culture Reflex order by discern. Performed By: #### 1 7246172 ####[facility] [address] [place] [address] Epithelial cells.squamous LM.HPF (Urine sed) [#/Area] 0-2 Normal 0-2 [facility] Comment on above: Order Comment: Urina ry Catheter Insertion triggered Urinalysis With Culture Reflex order by discern. Performed By: #### 1 2245504 ####[facility] [address] [place] [address] Glucose Test strip (U) [Mass/Vol] Negative Normal Negative [facility] Comment on above: Order Comment: Urina ry Catheter Insertion triggered Urinalysis With Culture Reflex order by discern. Performed By: #### 1 8953964 ####[facility] [address] [place] [address] Hemoglobin Ql (U) Negative Normal Negative [facility] Comment on above: Order Comment: Urina ry Catheter Insertion triggered Urinalysis With Culture Reflex order by discern. Performed By: #### 1 2280349 ####[facility] [address] [place] [address] Ketones (U) [Mass/Vol] Negative Normal Negative [facility] Comment on above: Order Comment: Urina ry Catheter Insertion triggered Urinalysis With Culture Reflex order by discern. Performed By: #### 1 7459919 ####[address] [address] [place].plasma/[place] .RBC (Bld) [Mass ratio] 0-3 Normal 0-3 [facility] Comment on above: Order Comment: Urina ry Catheter Insertion triggered Urinalysis With Culture Reflex order by discern. Performed By: #### 1 8711295 ####[address] [address] Nitrite Ql (U) Negative Normal Negative [facility] Comment on above: Order Comment: Urina ry Catheter Insertion triggered Urinalysis With Culture Reflex order by discern. Performed By: #### 1 6112252 ####[address] [address] pH (U) 7.0 [pH] Invalid Interpretation Code 5.0-9.0 [facility] Comment on above: Order Comment: Urina ry Catheter Insertion triggered Urinalysis With Culture Reflex order by discern. Performed By: #### 1 7977113 ####[address] [address] Protein (U) [Mass/Vol] Negative Normal Negative [facility] Comment on above: Order Comment: Urina ry Catheter Insertion triggered Urinalysis With Culture Reflex order by discern. Performed By: #### 1 5737382 ####[address] [address] Specific gravity (U) [Rel density] <=1.005 Invalid Interpretation Code 1.005-1.030 [facility] Comment on above: Order Comment: Urina ry Catheter Insertion triggered Urinalysis With Culture Reflex order by discern. Performed By: #### 1 3106457 ####[address] [address] Type of Urine collection method Vyas Normal [facility] Comment on above: Order Comment: Urina ry Catheter Insertion triggered Urinalysis With Culture Reflex order by discern. Performed By: #### 1 7334962 ####[address] [place] [address] Urobilinogen Qn (U) 0.2 {Rola'U}/dL Normal 0.0-1.0 [facility] Comment on above: Order Comment: Urina ry Catheter Insertion triggered Urinalysis With Culture Reflex order by discern. Performed By: #### 1 5402871 ####[facility] [address] [place] [address] WBC Auto Ql (U) Negative Normal Negative [facility] Comment on above: Order Comment: Urina ry Catheter Insertion triggered Urinalysis With Culture Reflex order by discern. Performed By: #### 1 6574623 ####[address] [address] WBC LM.HPF (Urine sed) [#/Area] 0-5 Normal 0-5 [facility] Comment on above: Order Comment: Urina ry Catheter Insertion triggered Urinalysis With Culture Reflex order by discern. Performed By: #### 1 0909629 ####[address] [address] Bilirubin Ql (U) Negative Normal Negative [facility] Comment on above: Performed By: #### 1 8219546 ####[address] [address] Clarity (U) CLEAR Normal Clear [facility] Comment on above: Performed By: #### 1 2602800 ####[address] [address] Color (U) YELLOW Normal Yellow [facility] Comment on above: Performed By: #### 1 3203198 ####[address] [address] Epithelial cells.squamous LM.HPF (Urine sed) [#/Area] 0-2 Normal 0-2 [facility] Comment on above: Performed By: #### 1 5532090 ####[address] [address] Glucose Test strip (U) [Mass/Vol] Negative Normal Negative [facility] Comment on above: Performed By: #### 1 3768707 ####[facility] [address] [place] [address] Hemoglobin Ql (U) Negative Normal Negative [facility] Comment on above: Performed By: #### 1 6783406 ####[address] [address] Ketones (U) [Mass/Vol] Negative Normal Negative [facility] Comment on above: Performed By: #### 1 2599025 ####[address] [address] [place].plasma/[place] .RBC (Bld) [Mass ratio] 0-3 Normal 0-3 [facility] Comment on above: Performed By: #### 1 5067692 ####[address] [address] Nitrite Ql (U) Negative Normal Negative [facility] Comment on above: Performed By: #### 1 7919305 ####[address] [address] pH (U) 6.0 [pH] Invalid Interpretation Code 5.0-9.0 [facility] Comment on above: Performed By: #### 1 1868953 ####[address] [address] Protein (U) [Mass/Vol] Negative Normal Negative [facility] Comment on above: Performed By: #### 1 0653844 ####[address] [address] Specific gravity (U) [Rel density] <=1.005 Invalid Interpretation Code 1.005-1.030 [facility] Comment on above: Performed By: #### 1 8675146 ####[address] [address] Type of Urine collection method Clean Catch Normal [facility] Comment on above: Performed By: #### 1 0738963 ####[address] [address] Urobilinogen Qn (U) 0.2 {Rola'U}/dL Normal 0.0-1.0 [facility] Comment on above: Performed By: #### 1 5188487 ####[facility] [address] [place] [address] WBC Auto Ql (U) Negative Normal Negative [facility] Comment on above: Performed By: #### 1 2203548 ####[facility] [address] [place] [address] WBC LM.HPF (Urine sed) [#/Area] 0-5 Normal 0-5 [facility] Comment on above: Performed By: #### 1 8756062 ####[facility] [address] [place] [address] Vaccinationson 09-25-2022 Vaccinations [id number]#1.00CD:1 27 Normal [facility] Vaccinations [id number]#1.00CD:1 27 Normal [facility] ABO/Rhon 09-24-2022 ABO/Rh Positive Invalid Interpretation Code [facility] Comment on above: Performed By: #### 1 5322685, 53486753, 24771334, 3139910 ####[facility] [address] [place] [address] ABO/Rh History Checkon 09-24 ABO/Rh History Check Verified Hx Blood Type Normal [facility] Comment on above: Performed By: #### 1 6619548, 07488555, 24336105, 7001573 ####[facility] [address] [place] [address] ABSCon 09-24-2022 ABSC Gel Interp Negative Normal [facility] Comment on above: Performed By: #### 1 5595198, 89874799, 27744970, 0366062 ####[facility] [address] [place] [address] Blood Bank ID#on 09-24-2022 BBID# [id number] Invalid Interpretation Code [facility] Comment on above: Performed By: #### 1 2070442, 91669805, 86933937, 6171745 ####[place] [place] [address] CBC w/Indiceson 09-24-2022 Erythrocyte distribution width (RBC) [Ratio] 13.0 % Normal 10.9-14.2 [facility] Comment on above: Performed By: #### 2 792800 ####[address] [address] Hematocrit (Bld) [Volume fraction] 38.0 % Normal 34.0-46.0 [facility] Comment on above: Performed By: #### 2 722733 ####[address] [address] Hemoglobin (Bld) [Mass/Vol] 12.8 g/dL Normal 12.0-16.0 [facility] Comment on above: Performed By: #### 2 623490 ####[address] [address] MCH (RBC) [Entitic mass] 31.3 pg Normal 27.0-34.0 [facility] Comment on above: Performed By: #### 2 860877 ####[address] [address] MCHC (RBC) [Mass/Vol] 33.7 g/dL Normal 31.4-36.0 [facility] Comment on above: Performed By: #### 2 911485 ####[address] [address] MCV (RBC) [Entitic vol] 92.9 fL Normal 80.0-100.0 [facility] Comment on above: Performed By: #### 2 912656 ####[address] [address] Platelet mean volume (Bld) [Entitic vol] 9.8 fL Normal 6.4-10.8 [facility] Comment on above: Performed By: #### 2 893309 ####[facility] [place] [address] Platelets (Bld) [#/Vol] 238.0 E9/L Normal 150.0-500.0 [facility] Comment on above: Performed By: #### 2 039366 ####[facility] [address] [place] [address] RBC (Bld) [#/Vol] 4.1 E12/L Low 4.3-5.9 [facility] Comment on above: Performed By: #### 2 838031 ####[facility] [address] [place] [address] WBC corrected for nucl RBC Auto (Bld) [#/Vol] 12.8 E9/L High 4.0-11.0 [facility] Comment on above: Performed By: #### 2 027488 ####[facility] [address] [place] [address] Consent for Treatmenton 09-14 Consent for Treatment [id number]#1.00CD:12 7 Normal [facility] Consent for Treatment [id number]#1.00CD:1 27 Normal [facility] Consent for Treatmenton Consent for Treatment [id number]#1.00CD:12 7 Normal [facility] Discharge Instructionson Discharge Instructions [id number]#1.00CD:12 7 Normal [facility] Inpatient Clinical Summaryon 09-22-2022 Inpatient Clinical Summary Normal [facility] Inpatient Patient Summaryon 09-22-2022 Inpatient Patient Summary Normal [facility] Insurance Correspondence Off iceon 09-22-2022 Insurance Correspondence Office [id number]#1.00CD: 127 Normal [facility] Nursing Assessmenton 022 Nursing Assessment [id number]#1.00CD:1 27 Normal [facility] Nursing Assessment [id number]#1.00CD:12 7 [facility] Discharge Instructionson Discharge Instructions [id number]#1.00CD:127 Normal [facility] Inpatient Clinical Summaryon 09-20-2022 Inpatient Clinical Summary Normal [facility] Inpatient Patient Summaryon 09-20-2022 Inpatient Patient Summary [facility] Insurance Correspondence Off iceon 09-20-2022 Insurance Correspondence Office [id number]#1.00CD:127 [facility] Consent for Treatmenton Consent for Treatment [id number]#1.00CD:12 7 Normal [facility] Discharge Instructionson Discharge Instructions [id number]#1.00CD:1 27 Normal [facility] Inpatient Clinical Summaryon 09-19-2022 Inpatient Clinical Summary Normal [facility] Inpatient Patient Summaryon 09-19-2022 Inpatient Patient Summary [facility] Insurance Correspondenceon 11-20-2021 Insurance Correspondence [id number]#1.00CD:1 27 Normal [facility] UA With Cult Reflexon 2021 Bilirubin Ql (U) Negative Normal Negative [facility] Comment on above: Performed By: #### 1 0894425 ####[facility] [address] [place] [address] Clarity (U) CLEAR Normal Clear [facility] Comment on above: Performed By: #### 1 9126321 ####[facility] [address] [place] [address] Color (U) YELLOW Normal Yellow [facility] Comment on above: Performed By: #### 1 7111644 ####[facility] [address] [place] [address] Epithelial cells.squamous LM.HPF (Urine sed) [#/Area] 0-2 Normal 0-2 [facility] Comment on above: Performed By: #### 1 0584500 ####[address] [address] Glucose Test strip (U) [Mass/Vol] Negative Normal Negative [facility] Comment on above: Performed By: #### 1 6596718 ####[address] [address] Hemoglobin Ql (U) Negative Normal Negative [facility] Comment on above: Performed By: #### 1 5706760 ####[address] [address] Ketones (U) [Mass/Vol] Negative Normal Negative [facility] Comment on above: Performed By: #### 1 3276601 ####[address] [address] [place].plasma/[place] .RBC (Bld) [Mass ratio] 0-3 Normal 0-3 [facility] Comment on above: Performed By: #### 1 7295277 ####[address] [address] Nitrite Ql (U) Negative Normal Negative [facility] Comment on above: Performed By: #### 1 0025387 ####[address] [address] pH (U) 7.0 [pH] Invalid Interpretation Code 5.0-9.0 [facility] Comment on above: Performed By: #### 1 4293514 ####[address] [address] Protein (U) [Mass/Vol] Negative Normal Negative [facility] Comment on above: Performed By: #### 1 0331251 ####[address] [address] Specific gravity (U) [Rel density] <=1.005 Invalid Interpretation Code 1.005-1.030 [facility] Comment on above: Performed By: #### 1 4992212 ####[place] [address] Type of Urine collection method Clean Catch Normal [facility] Comment on above: Performed By: #### 1 7101260 ####[place] [address] Urobilinogen Qn (U) 0.2 {Rola'U}/dL Normal 0.0-1.0 [facility] Comment on above: Performed By: #### 1 2611553 ####[place] [address] WBC Auto Ql (U) Negative Normal Negative [facility] Comment on above: Performed By: #### 1 1390438 ####[place] [address] WBC LM.HPF (Urine sed) [#/Area] 0-5 Normal 0-5 [facility] Comment on above: Performed By: #### 1 8491276 ####[place] [address] URINALYSISOrdered By: Jeanette Castle on 09-19-2022 Bilirubin Ql (U) Negative (09/19/22 1:44 AM) Normal Negative [facility] UA Auto SS Clarity (U) Clear (09/19/22 1:44 AM) Normal Clear [facility] UA Auto SS Color (U) Yellow (09/19/22 1:44 AM) Normal Yellow [facility] UA Auto SS Epithelial cells.squamous LM.HPF (Urine sed) [#/Area] 0-2 /HPF Normal 0-2/HPF [facility] UA Auto SS Glucose Test strip (U) [Mass/Vol] Negative (09/19/22 1:44 AM) Normal Negative [facility] UA Auto SS Hemoglobin Ql (U) Negative (09/19/22 1:44 AM) Normal Negative [facility] UA Auto SS Ketones (U) [Mass/Vol] Negative (09/19/22 1:44 AM) Normal Negative [facility] UA Auto SS [place].plasma/[place] .RBC (Bld) [Mass ratio] 0-3 /HPF Normal 0-3/HPF [facility] UA Auto SS Nitrite Ql (U) Negative (09/19/22 1:44 AM) Normal Negative [facility] UA Auto SS pH (U) 7.0 *NA* (09/19/22 1:44 AM) Invalid Interpretation Code 5.0 - 9.0 [facility] UA Auto SS Protein (U) [Mass/Vol] Negative (09/19/22 1:44 AM) Normal Negative [facility] UA Auto SS Specific gravity (U) [Rel density] <=1.005 *NA* (09/19/22 1:44 AM) Invalid Interpretation Code 1.005 - 1.030 [facility] UA Auto SS UA Spec Desc Clean Catch (09/19/22 1:44 AM) Normal [facility] UA Auto SS Urobilinogen Qn (U) 0.9503396 {Rola'U}/dL Normal 0.0 - 1.0 EU/dL [facility] UA Auto SS WBC Auto Ql (U) Negative (09/19/22 1:44 AM) Normal Negative [facility] UA Auto SS WBC LM.HPF (Urine sed) [#/Area] 0-5 /HPF Normal 0-5/HPF [facility] UA Auto SS Coding Summary.on 09-18-2022 Coding Summary. [facility] Nursing Assessmenton 022 Nursing Assessment [id number]#1.00CD:12 7 [facility] Coding Summary.on 09-15-2022 Coding Summary. [facility] Coding Summary.on 09-14-2022 Coding Summary. [facility] Consent for Treatmenton Consent for Treatment [id number]#1.00CD:12 [facility] Consent for Treatment [id number]#1.00CD:12 [facility] Discharge Instructionson Discharge Instructions [id number]#1.00CD:12 7 Normal [facility] Inpatient Clinical Summaryon 09-14-2022 Inpatient Clinical Summary Normal [facility] Inpatient Patient Summaryon 09-14-2022 Inpatient Patient Summary Normal [facility] Insurance Correspondence Off iceon 09-14-2022 Insurance Correspondence Office [id number]#1.00CD:12 7 Normal [facility] Nursing Assessmenton 022 Nursing Assessment [id number]#1.00CD:1 27 Normal [facility] UA With Cult Reflexon 2021 Bacteria LM Ql (Urine sed) TRACE Normal Trace [facility] Comment on above: Performed By: #### 1 [id number] ####[facility] [address] [place] [address] Bilirubin Ql (U) Negative Normal Negative [facility] Comment on above: Performed By: #### 1 3053330 ####[facility] [address] [place] [address] Clarity (U) CLEAR Normal Clear [facility] Comment on above: Performed By: #### 1 0196044 ####[facility] [address] [place] [address] Color (U) YELLOW Normal Yellow [facility] Comment on above: Performed By: #### 1 0493435 ####[facility] [address] [place] [address] Crystals LM Ql (Urine sed) Present Normal [facility] [facility] Comment on above: Performed By: #### 1 [id number] ####[facility] [address] [place] [address] Epithelial cells.squamous LM.HPF (Urine sed) [#/Area] 0-2 Normal 0-2 [facility] Comment on above: Performed By: #### 1 [id number] ####[facility] [address] [place] [address] Glucose Test strip (U) [Mass/Vol] Negative Normal Negative [facility] Comment on above: Performed By: #### 1 [id number] ####[facility] [address] [place] [address] Hemoglobin Ql (U) Negative Normal Negative [facility] Comment on above: Performed By: #### 1 0722456 ####[address] [place] [address] Ketones (U) [Mass/Vol] Negative Normal Negative [facility] Comment on above: Performed By: #### 1 1339764 ####[address] [address] [place].plasma/[place] .RBC (Bld) [Mass ratio] 0-3 Normal 0-3 [facility] Comment on above: Performed By: #### 1 [id number] ####[address] [address] Mucus Ql (Urine sed) TRACE Normal [facility] Comment on above: Performed By: #### 1 3797670 ####[address] [address] Nitrite Ql (U) Negative Normal Negative [facility] Comment on above: Performed By: #### 1 8863816 ####[address] [address] pH (U) 6.0 [pH] Invalid Interpretation Code 5.0-9.0 [facility] Comment on above: Performed By: #### 1 3791920 ####[address] [address] Protein (U) [Mass/Vol] Negative Normal Negative [facility] Comment on above: Performed By: #### 1 [id number] ####[address] [address] Specific gravity (U) [Rel density] <=1.005 Invalid Interpretation Code 1.005-1.030 [facility] Comment on above: Performed By: #### 1 7263955 ####[address] [address] Type of Urine collection method Random Urine Normal [facility] Comment on above: Performed By: #### 1 [id number] ####[facility] [address] [place] [address] Urobilinogen Qn (U) 0.2 {Rola'U}/dL Normal 0.0-1.0 [facility] Comment on above: Performed By: #### 1 7115301 ####[facility] [address] [place] [address] WBC Auto Ql (U) TRACE Abnormal Negative [facility] Comment on above: Performed By: #### 1 [id number] ####[facility] [address] [place] [address] WBC LM.HPF (Urine sed) [#/Area] 0-5 Normal 0-5 [facility] Comment on above: Performed By: #### 1 [id number] ####[facility] [address] [place] [address] URINALYSISOrdered By: An Lassiter on 09-14-2022 Bacteria [...] AM) Normal Negative [facility] UA Auto SS [place].plasma/[place] .RBC (Bld) [Mass ratio] 0-3 /HPF Normal 0-3/HPF [facility] UA Auto SS Mucus Ql (Urine sed) Trace (09/14/22 9:25 AM) Normal [facility] UA Auto SS Nitrite Ql (U) Negative (09/14/22 9:25 AM) Normal Negative [facility] UA Auto SS pH (U) 6.0 *NA* (09/14/22 9:25 AM) Invalid Interpretation Code 5.0 - 9.0 [facility] UA Auto SS Protein (U) [Mass/Vol] Negative (09/14/22 9:25 AM) Normal Negative [facility] UA Auto SS Specific gravity (U) [Rel density] <=1.005 *NA* (09/14/22 9:25 AM) Invalid Interpretation Code 1.005 - 1.030 [facility] UA Auto SS UA Spec Desc Random Urine (09/14/22 9:25 AM) Normal [facility] UA Auto SS Urobilinogen Qn (U) 0.5804838 {Rola'U}/dL Normal 0.0 - 1.0 EU/dL [facility] UA Auto SS WBC Auto Ql (U) Trace *ABN* (09/14/22 9:25 AM) Invalid Interpretation Code Negative [facility] UA Auto SS WBC LM.HPF (Urine sed) [#/Area] 0-5 /HPF Normal 0-5/HPF [facility] UA Auto SS Coding Summary.on 09-12-2022 Coding Summary. Normal [facility] Consent for Treatmenton 08-16 Consent for Treatment [id number]#1.00CD:12 7 Normal [facility] Discharge Instructionson Discharge Instructions [id number]#1.00CD:12 7 Normal [facility] Discharge Instructions [id number]#1.00CD:1 27 Normal [facility] Inpatient Clinical Summaryon 09-12-2022 Inpatient Clinical Summary Normal [facility] Inpatient Patient Summaryon 09-12-2022 Inpatient Patient Summary Normal [facility] Insurance Correspondenceon 11-12-2021 Insurance Correspondence [id number]#1.00CD:12 7 Normal [facility] Insurance Correspondence Off iceon 09-12-2022 Insurance Correspondence Office [id number]#1.00CD:1 27 Normal [facility] Nursing Assessmenton 022 Nursing Assessment [id number]#1.00CD:1 27 Normal [facility] UA With Cult Reflexon 2021 Bilirubin Ql (U) Negative Normal Negative [facility] Comment on above: Performed By: #### 1 [id number] ####[facility] [address] [place] [address] Clarity (U) CLEAR Normal Clear [facility] Comment on above: Performed By: #### 1 [id number] ####[facility] [address] [place] [address] Color (U) YELLOW Normal Yellow [facility] Comment on above: Performed By: #### 1 4776907 ####[facility] [address] [place] [address] Crystals LM Ql (Urine sed) Present Normal [facility] Comment on above: Performed By: #### 1 8352887 ####[facility] [address] [place] [address] Epithelial cells.squamous LM.HPF (Urine sed) [#/Area] 3-4 Normal 0-2 [facility] Comment on above: Performed By: #### 1 0869507 ####[facility] [address] [place] [address] Glucose Test strip (U) [Mass/Vol] Negative Normal Negative [facility] Comment on above: Performed By: #### 1 0120901 ####[facility] [address] [place] [address] Hemoglobin Ql (U) Negative Normal Negative [facility] Comment on above: Performed By: #### 1 6190364 ####[facility] [address] [place] [address] Ketones (U) [Mass/Vol] Negative Normal Negative [facility] Comment on above: Performed By: #### 1 5962662 ####[address] [place] [address] [place].plasma/[place] .RBC (Bld) [Mass ratio] 0-3 Normal 0-3 [facility] Comment on above: Performed By: #### 1 5584769 ####[address] [address] Nitrite Ql (U) Negative Normal Negative [facility] Comment on above: Performed By: #### 1 [id number] ####[address] [address] pH (U) 6.0 [pH] Invalid Interpretation Code 5.0-9.0 [facility] Comment on above: Performed By: #### 1 0298556 ####[address] [address] Protein (U) [Mass/Vol] Negative Normal Negative [facility] Comment on above: Performed By: #### 1 9996692 ####[address] [address] Specific gravity (U) [Rel density] 1.010 Invalid Interpretation Code 1.005-1.030 [facility] Comment on above: Performed By: #### 1 4663960 ####[address] [address] Type of Urine collection method Clean Catch Normal [facility] Comment on above: Performed By: #### 1 0456241 ####[address] [address] Urobilinogen Qn (U) 0.2 {Rola'U}/dL Normal 0.0-1.0 [facility] Comment on above: Performed By: #### 1 2637073 ####[address] [address] WBC Auto Ql (U) Negative Normal Negative [facility] Comment on above: Performed By: #### 1 9964951 ####[facility] [address] [place] [address] WBC LM.HPF (Urine sed) [#/Area] 0-5 Normal 0-5 [facility] Comment on above: Performed By: #### 1 5270850 ####[facility] [address] [place] [address] URINALYSISOrdered By: Jose Miguel nelson on 09-12-2022 [...] PM) Normal Negative [facility] UA Auto SS [place].plasma/[place] .RBC (Bld) [Mass ratio] 0-3 /HPF Normal [...] [facility] UA Auto SS Urobilinogen Qn (U) 0.6301470 {Rola'U}/dL Normal 0.0 - 1.0 EU/dL [facility] UA Auto SS WBC Auto Ql (U) Negative (09/12/22 8:15 PM) Normal Negative [facility] UA Auto SS WBC LM.HPF (Urine sed) [#/Area] 0-5 /HPF Normal 0-5/HPF [facility] UA Auto SS Coding Summary.on 09-11-2022 Coding Summary. Normal [facility] Consent for Treatmenton 08-16 Consent for Treatment [id number]#1.00CD:12 7 Normal [facility] Discharge Instructionson Discharge Instructions [id number]#1.00CD:1 27 Normal [facility] Inpatient Clinical Summaryon 09-08-2022 Inpatient Clinical Summary Normal [facility] Inpatient Patient Summaryon 09-08-2022 Inpatient Patient Summary Normal [facility] Coding Summary.on 09-06-2022 Coding Summary. Normal [facility] Discharge Instructionson Discharge Instructions [id number]#1.00CD:1 27 Normal [facility] ED Clinical Summaryon 2021 ED Clinical Summary Normal [facility] ED Note-Nursingon 09-06-2022 ED Note-Nursing pt given d/c instruc tions and educated on importance of follow up. pt educated on new medications. pt verbalized understanding of instructions and readiness for d/c. pt walked self ambulatory to waiting room in stable condition Normal [facility] ED Patient Education Noteon 09-06-2022 ED Patient Education Note Normal [facility] ED Patient Summaryon 022 ED Patient Summary Normal [facility] XR Chest Single Viewon 09-06 XR Chest Single View Normal [facility] Auto Diffon 09-05-2022 Basophils/100 WBC (Bld) 1.0 % Normal 0.0-2.0 [facility] Comment on above: Order Comment: Order Added by Discern Expert. Performed By: #### 2 991015, 29801626, 60433074, 5680157, 00381093, 94155681, 9864528 ####[address] [place] [address] Basophils/Leukocytes Auto (Bld) [Pure # fraction] 0.1 E9/L Normal 0.0-0.2 [facility] Comment on above: Order Comment: Order Added by Discern Expert. Performed By: #### 2 165572, 18061945, 08987416, 4495046, 43917597, 95259197, 6082531 ####[address] [place] [address] Eosinophils/100 WBC (Bld) 1.4 % Normal 0.0-8.0 [facility] Comment on above: Order Comment: Order Added by Discern Expert. Performed By: #### 2 053892, 21863980, 48072380, 2961805, 41105423, 91984953, 4194617 ####[address] [address] Eosinophils/Leukocytes Auto (Bld) [Pure # fraction] 0.2 E9/L Normal 0.0-0.5 [facility] Comment on above: Order Comment: Order Added by Discern Expert. Performed By: #### 2 196137, 78159057, 50190121, 9372439, 35047066, 73791019, 1607931 ####[address] [address] Lymphocytes/100 WBC (Bld) 18.8 % Normal 14.0-50.0 [facility] Comment on above: Order Comment: Order Added by Discern Expert. Performed By: #### 2 992032, 62323090, 53295587, 1472198, 79293495, 75855064, 6001126 ####[address] [place] [address] Lymphocytes/Leukocytes Auto (Bld) [Pure # fraction] 2.0 E9/L Normal 1.0-4.0 [facility] Comment on above: Order Comment: Order Added by Discern Expert. Performed By: #### 2 039085, 99217176, 07388556, 6243459, 20861729, 30818984, 0097172 ####[facility] [address] [place] [address] Monocytes/100 WBC (Bld) 6.8 % Normal 4.0-14.0 [facility] Comment on above: Order Comment: Order Added by Discern Expert. Performed By: #### 2 546881, 60259119, 43735933, 2398048, 58135660, 12397430, 8490655 ####[facility] [address] [place] [address] Monocytes/Leukocytes Auto (Bld) [Pure # fraction] 0.7 E9/L Normal 0.2-1.0 [facility] Comment on above: Order Comment: Order Added by Gisselle Expert. Performed By: #### 2 364297, 11328338, 01871346, 9767835, 81865021, 60923769, 3736387 ####[facility] [address] [place] [address] Neutrophils/100 WBC (Bld) 72.0 % Normal 36.0-75.0 [facility] Comment on above: Order Comment: Order Added by Gisselle Expert. Performed By: #### 2 931178, 64324881, 33467150, 6720306, 11450669, 78394959, 6355966 ####[facility] [address] [place] [address] Neutrophils/Leukocytes Auto (Bld) [Pure # fraction] 7.8 E9/L High 2.0-7.5 [facility] Comment on above: Order Comment: Order Added by Gisselle Expert. Performed By: #### 2 949747, 39585616, 42472266, 3246024, 81151021, 50307230, 2336351 ####[facility] [address] [place] [address] BMPon 11-22-2022 Creatinine [Mass/Vol] 0.7 mg/dL Normal 0.5-1.3 [facility] Comment on above: Performed By: #### 2 092145, 07514622, 48824091, 9836313, 20188441, 27893813, 6938792 ####[facility] [address] [place] [address] Urea nitrogen [Mass/Vol] 7 mg/dL Normal 5-21 [facility] Comment on above: Performed By: #### 2 646083, 41414578, 46634458, 6098485, 02146061, 91285661, 5214163 ####[facility] [address] [place] [address] Urea nitrogen/Creatinine [Mass ratio] 10 No Units Normal 10-20 [facility] Comment on above: Performed By: #### 2 019775, 02476692, 18169481, 1075426, 57978173, 95953466, 2198734 ####[facility] [address] [place] [address] Anion gap [Moles/Vol] 10 mmol/L Normal 6-16 [facility] Comment on above: Performed By: #### 2 179346, 64159738, 27781445, 1310010, 19947754, 69865328, 8258438 ####[facility] [address] [place] [address] Calcium [Mass/Vol] 8.8 mg/dL Low 8.9-11.1 [facility] Comment on above: Performed By: #### 2 024668, 64720270, 12598591, 4281910, 29823741, 43233085, 8946699 ####[facility] [address] [place] [address] Chloride [Moles/Vol] 102 mmol/L Normal 101-111 [facility] Comment on above: Performed By: #### 2 319190, 55167535, 99524135, 4726299, 12289587, 72121999, 9874455 ####[facility] [address] [place] [address] CO2 [Moles/Vol] 22 mmol/L Normal 21-31 [facility] Comment on above: Performed By: #### 2 038996, 88050759, 40238073, 4922768, 95254377, 50950725, 2802938 ####[facility] [address] [place] [address] Glucose [Mass/Vol] 87 mg/dL Normal 55-199 [facility] Comment on above: Result Comment: If t his glucose result represents a fasting glucose, interpretation should refer to the following reference range: 55-99 mg/dL Performed By: #### 2 711330, 92151386, 17176959, 6165425, 97976187, 73936097, 6167852 ####[facility] [address] [place] [address] Potassium [Moles/Vol] 3.3 mmol/L Low 3.5-5.3 [facility] Comment on above: Performed By: #### 2 022369, 47758885, 35015219, 5940764, 76711323, 47167722, 0802466 ####[facility] [address] [place] [address] Sodium [Moles/Vol] 131 mmol/L Low 135-145 [facility] Comment on above: Performed By: #### 2 788638, 78073704, 69217165, 5668571, 67018501, 09033865, 0955198 ####[facility] [address] [place] [address] BNPon 09-05-2022 Int Ctr BNP Pass Normal [facility] Comment on above: Performed By: #### 2 033282, 03655371, 73365594, 7980885, 61628255, 85302751, 3520318 ####[facility] [address] [place] [address] Natriuretic peptide B (Bld) [Mass/Vol] 8 pg/mL Normal 5-80 [facility] Comment on above: Performed By: #### 2 788491, 42268548, 82715223, 2654370, 62762805, 91827890, 8535930 ####[facility] [address] [place] [address] CBC w/ Auto Diffon Erythrocyte distribution width (RBC) [Ratio] 12.7 % Normal 10.9-14.2 [facility] Comment on above: Performed By: #### 2 657811, 57160989, 30693011, 4284080, 39574089, 78321360, 9140054 ####[address] [place] [address] Hematocrit (Bld) [Volume fraction] 34.2 % Normal 34.0-46.0 [facility] Comment on above: Performed By: #### 2 981395, 42348774, 83840707, 5661309, 50629377, 25267167, 4885483 ####[address] [place] [address] Hemoglobin (Bld) [Mass/Vol] 12.3 g/dL Normal 12.0-16.0 [facility] Comment on above: Performed By: #### 2 631857, 07710213, 15173792, 1226109, 51016439, 70120485, 0243796 ####[address] [place] [address] MCH (RBC) [Entitic mass] 31.8 pg Normal 27.0-34.0 [facility] Comment on above: Performed By: #### 2 741914, 44858551, 88939265, 6452451, 09304069, 55653979, 6181674 ####[address] [place] [address] MCHC (RBC) [Mass/Vol] 35.9 g/dL Normal 31.4-36.0 [facility] Comment on above: Performed By: #### 2 112530, 41898338, 37580922, 5460945, 50607793, 28707897, 5432286 ####[address] [place] [address] MCV (RBC) [Entitic vol] 88.7 fL Normal 80.0-100.0 [facility] Comment on above: Performed By: #### 2 540169, 92172724, 49402189, 5918868, 07305348, 77466230, 3334995 ####[address] [address] Platelet mean volume (Bld) [Entitic vol] 9.8 fL Normal 6.4-10.8 [facility] Comment on above: Performed By: #### 2 539018, 55010283, 06771709, 4556767, 86067349, 46411945, 7713306 ####[address] [address] Platelets (Bld) [#/Vol] 215.0 E9/L Normal 150.0-500.0 [facility] Comment on above: Performed By: #### 2 167532, 52676320, 29926613, 7842022, 98614752, 86572031, 7647593 ####[address] [address] RBC (Bld) [#/Vol] 3.9 E12/L Low 4.3-5.9 [facility] Comment on above: Performed By: #### 2 523012, 47930814, 31996646, 3026379, 34697338, 82460848, 8264875 ####[address] [address] WBC corrected for nucl RBC Auto (Bld) [#/Vol] 10.9 E9/L Normal 4.0-11.0 [facility] Comment on above: Result Comment: Slid e reviewed by ts. Performed By: #### 2 512650, 18865055, 17232602, 1509066, 65670522, 65568686, 3135394 ####[facility] [address] [place] [address] CHEMISTRYOrdered By: SYSTEM SYSTEM on 09-05-2022 Anion [...] rate/Area] mL/min/1.73 m2 Normal >=59mL/min/ 1.73 m2 [facility] Chem S GFR/1.73 sq M.predicted among non-blacks MDRD (S/P/Bld) [Vol rate/Area] mL/min/1.73 m2 Normal >=59mL/min/ 1.73 m2 [facility] Chem S Glucose [Mass/Vol] 87 mg/dL Normal 55 - 199 mg/dL [facility] Potassium [Moles/Vol] 3.3 mmol/L Low 3.5 - 5.3 mmol/L [facility] Sodium [Moles/Vol] 131 mmol/L Low 135 - 145 mmol/L [facility] Remisol Troponin I.cardiac [Mass/Vol] 4.70 pg/mL Low 10.10 - 27.10 pg/mL [facility] Remisol Urea nitrogen [Mass/Vol] 7 mg/dL Normal 5 - 21 mg/dL [facility] Remisol Urea nitrogen/Creatinine [Mass ratio] 10 mg/mg Normal 10 - 20 [facility] CHEMISTRYOrdered By: Temi hayden on 09-05-2022 Natriuretic peptide B (Bld) [Mass/Vol] 8 pg/mL Normal 5 - 80 pg/mL [facility] HemeManSS COAGULATIONOrdered By: Yamile Li on 09-05-2022 aPTT Coag (PPP) [Time] 27.1 s Normal 25.1 - 36.5 second(s) [facility] Auto Coag INR Coag (PPP) [Relative time] 0.9 {INR} Invalid Interpretation Code [facility] Auto Coag PT Coag (PPP) [Time] 10.3 s Normal 9.4 - 1 2.5 second(s) [facility] Auto Coag Consent for Treatmenton 08-16 Consent for Treatment [id number]#1.00CD:12 7 Normal [facility] ED Note-Nursingon 09-05-2022 ED Note-Nursing Normal [facility] ED Note-Physicianon 09-05-20 ED Note-Physician Normal [facility] Comment on above: Result Comment: Elec tronically Signed By: Gopi Rodriguez DO\Patriciabr\Date and Time Signed: 09/05/22 21:46 EST Group B Strep by PCRon 09-05 Group B Strep colonization by PCR Negative Normal Negative [facility] Comment on above: Performed By: #### 4 [id number] ####[facility] [address] [place] [address] HEMATOLOGYOrdered By: SYSTEM SYSTEM on 09-05-2022 Basophils/100 [...] POS Ctl Pass (09/05/22 8:22 PM) Normal [facility] Man Sero SARS-CoV+SARS-CoV-2 (COVID-19) Ag IA.rapid Ql (Resp) Detected 2 *ABN* (09/05/22 8:22 PM) Invalid Interpretation Code Not Detected [facility] Comment on above: Result Comment: Resu lts Called To Berna Cook RN/ER By AGNIESZKA And Read Back For Confirmation On 09/05/2022 21:14:20 EST Results Verified By Repeat Analysis PT & PTTon 09-05-2022 aPTT Coag (PPP) [Time] 27.1 second(s) Normal 25.1-36.5 [facility] Comment on above: Result Comment: Para [...] the same coagulation reagent and instrumentation as [facility]. Currently there are no coagulation studies available worldwide for children to 14 days, and no normal ranges. Heparin therapeutic range (represented by Anti-Factor Xa activity of 0.2 - 0.4 U/mL) corresponds to PTT of 56.6 - 109.0 sec. Performed By: #### 2 226016, 55096413, 05314683, 8935529, 85946764, 94279142, 2204229 ####[facility] [address] [place] [address] INR Coag (PPP) [Relative time] 0.9 {INR} Invalid Interpretation Code [facility] Comment on above: Result Comment: INR results are specifically intended to assess patients stabilized on long-term Anticoagulation therapy suggested INR?s ?Less Intensive Anticoagulation? 2.0 ? 3.0Conventional Range 3.0 ? 4.5 Performed By: #### 2 789144, 01284519, 32808739, 5948098, 19217613, 86127000, 9400337 ####[facility] [address] [place] [address] PT Coag (PPP) [Time] 10.3 second(s) Normal 9.4-12.5 [facility] Comment on above: Result Comment: 15 [...] the same coagulation reagent and instrumentation as [facility]. Currently there are no coagulation studies available worldwide for children to 14 days, and no normal ranges. Performed By: #### 2 419850, 62319068, 22216413, 8350948, 06238132, 37048420, 4769418 ####[address] [place] [address] Rapid COVID Antigen ([facility])on 09-05-2022 Rapid COV Int NEG Ctl Pass Normal [facility] Comment on above: Performed By: #### 2 [id number] ####[facility] [address] [place] [address] Rapid COV Int POS Ctl Pass Normal [facility] Comment on above: Performed By: #### 2 [id number] ####[address] [place] [address] SARS-CoV+SARS-CoV-2 (COVID-19) Ag IA.rapid Ql (Resp) Detected Abnormal Not Detected [facility] Comment on above: Result Comment: Resu lts Called To Berna Cook RN/ER By AGNIESZKA And Read Back For Confirmation On 09/05/2022 21:14:20 ESTResults Verified By Repeat AnalysisThe Beakeritor? System for Rapid Detection of SARS-CoV-2 is [...] or revoked sooner. Performed By: #### 2 [id number] ####[place] [address] ADMITTED TO INTENSIVE CARE UNIT FOR CONDITION OF INTEREST:FIND:PT: NO Normal [facility] Comment on above: Performed By: #### 2 [id number] ####[address] [place] [address] EMPLOYED IN A HEALTHCARE SETTING:FIND:PT: NO Normal [facility] Comment on above: Performed By: #### 2 [id number] ####[place] [address] FIRST TEST FOR CONDITION OF INTEREST:FIND:PT: YES Normal [facility] Comment on above: Performed By: #### 2 [id number] ####[place] [address] HAS SYMPTOMS RELATED TO CONDITION OF INTEREST:FIND:PT: YES Normal [facility] Comment on above: Performed By: #### 2 [id number] ####[place] [address] HOSPITALIZED FOR CONDITION OF INTEREST:FIND:PT: NO Normal [facility] Comment on above: Performed By: #### 2 [id number] ####[place] [address] STATUS:FIND:PT: NO Normal [facility] Comment on above: Performed By: #### 2 [id number] ####[place] [address] RESIDES IN A [facility] CARE SETTING:FIND:PT: NO Normal [facility] Comment on above: Performed By: #### 2 [id number] ####[place] [id number] Troponin 0 Hr.on 09-05-2022 Troponin I.cardiac [Mass/Vol] 4.70 pg/mL Low 10.10-27.10 [facility] Comment on above: Result Comment: The 95% CI (Confidence Interval) PPV (Positive Predictive Value) for myocardial infarction in females is 38 pg/mL, in males 51 pg/mL. The results should be used in conjunction with clinical conditions of myocardial infarction.(Access High Sensitivity Troponin I Instructions For Use, Ziggy Wawarsing, May 2018) Performed By: #### 2 975993, 82453632, 06357064, 3790026, 04239239, 74892040, 9134087 ####[facility] [address] [place] [address] eGFRon 09-05-2022 GFR/1.73 sq M.predicted among blacks MDRD (S/P/Bld) [Vol rate/Area] mL/min/{1.73_m2} Normal >=59 [facility] Comment on above: Order Comment: Order added by Discern Expert. Result Comment: eGFR is race adjusted. AA=. Performed By: #### 2 986151, 28874689, 91510181, 9462413, 58656262, 83457847, 0894406 ####[facility] [address] [place] [address] GFR/1.73 sq M.predicted among non-blacks MDRD (S/P/Bld) [Vol rate/Area] mL/min/{1.73_m2} Normal >=59 [facility] Comment on above: Order Comment: Order added by Discern Expert. Result Comment: Unisaw Operator lucy kidney disease could be indicated at eGFR's of less than 60 mL/min/1.73m2. Kidney failure is indicated at less than 15 mL/min/1.73m2. Performed By: #### 2 370985, 23639726, 46434897, 1702670, 21813770, 06057725, 4715712 ####[facility] [address] [place] [address] Coding Summary.on 09-04-2022 Coding Summary. Normal [facility] Nursing Assessmenton 022 Nursing Assessment [id number]#1.00CD:1 27 Normal [facility] Physician Orderon 09-04-2022 Physician Order [id number]#1.00CD:1 27 Normal [facility] ABO/Rhon 08-31-2022 ABO/Rh Positive Invalid Interpretation Code [facility] Comment on above: Performed By: #### 1 5586062, 9490792, 16792509, 77240775 ####[facility] [address] [place] [address] ABO/Rh History Checkon 08-31 ABO/Rh History Check Verified Hx Blood Type Normal [facility] Comment on above: Performed By: #### 1 5479750, 5449235, 49950270, 44193103 ####[facility] [address] [place] [address] ABSCon 08-31-2022 ABSC Gel Interp Negative Normal [facility] Comment on above: Performed By: #### 1 5557697, 1608670, 37830621, 17136337 ####[facility] [address] [place] [address] BUNon 08-31-2022 Urea nitrogen [Mass/Vol] 8 mg/dL Normal 5-21 [facility] Comment on above: Performed By: #### 2 321331, 4530604, 32349294, 1511309, 04929619, 8405608, 0845318, 7561732, 0003921, 8362037, 90368513 ####[place] [address] [place] [address] Blood Bank ID#on 08-31-2022 BBID# [id number] Invalid Interpretation Code [facility] Comment on above: Performed By: #### 1 3587530, 1692288, 49308465, 89927559 ####[facility] [address] [place] [address] CBC w/Indiceson 08-31-2022 Erythrocyte distribution width (RBC) [Ratio] 12.9 % Normal 10.9-14.2 [facility] Comment on above: Performed By: #### 2 946879, 7776301, 68549565, 7444901, 09458382, 8493836, 8542730, 7372592, 4461272, 0455789, 43466758 ####[facility] [address] [place] [address] Hematocrit (Bld) [Volume fraction] 35.0 % Normal 34.0-46.0 [facility] Comment on above: Performed By: #### 2 303371, 1329217, 86994442, 5584285, 99841327, 2332106, 4127705, 7097366, 4005929, 3071080, 04996384 ####[facility] [address] [place] [address] Hemoglobin (Bld) [Mass/Vol] 12.0 g/dL Normal 12.0-16.0 [facility] Comment on above: Performed By: #### 2 109795, 1593924, 80808424, 0093547, 87385046, 5161492, 8922356, 8962682, 4588116, 9206738, 97292168 ####[facility] [address] [place] [address] MCH (RBC) [Entitic mass] 30.7 pg Normal 27.0-34.0 [facility] Comment on above: Performed By: #### 2 774523, 7929441, 42209086, 6171970, 00668915, 7648577, 1083636, 5175867, 0676000, 1919740, 67570364 ####[facility] [address] [place] [address] MCHC (RBC) [Mass/Vol] 34.4 g/dL Normal 31.4-36.0 [facility] Comment on above: Performed By: #### 2 228509, 5651204, 74229370, 1474000, 44969030, 0540588, 7505230, 9833795, 2406927, 5042518, 59976475 ####[facility] [address] [place] [address] MCV (RBC) [Entitic vol] 89.5 fL Normal 80.0-100.0 [facility] Comment on above: Performed By: #### 2 407177, 4186262, 92110089, 2733601, 32942197, 7968469, 3529190, 3950738, 5631529, 8917459, 28318236 ####[place] [address] [place] [address] Platelet mean volume (Bld) [Entitic vol] 9.8 fL Normal 6.4-10.8 [facility] Comment on above: Performed By: #### 2 398671, 2906629, 90367110, 0322349, 47501910, 9012176, 3343008, 8252991, 0385647, 3990366, 89893991 ####[facility] [address] [place] [address] Platelets (Bld) [#/Vol] 234.0 E9/L Normal 150.0-500.0 [facility] Comment on above: Performed By: #### 2 924228, 0308961, 45294413, 2299113, 37716701, 0951065, 3529827, 3970871, 3637181, 5082132, 84719932 ####[facility] [address] [place] [address] RBC (Bld) [#/Vol] 3.9 E12/L Low 4.3-5.9 [facility] Comment on above: Performed By: #### 2 966195, 9653325, 00167406, 4898243, 93439278, 8255233, 7212407, 4935997, 4763305, 6212953, 15971448 ####[facility] [address] [place] [address] WBC corrected for nucl RBC Auto (Bld) [#/Vol] 12.6 E9/L High 4.0-11.0 [facility] Comment on above: Performed By: #### 2 118537, 3378532, 95965767, 1056135, 21459374, 4256883, 6245506, 0853074, 2514278, 2733446, 54455472 ####[facility] [address] [place] [address] Creatinineon 08-31-2022 Creatinine [Mass/Vol] 0.7 mg/dL Normal 0.5-1.3 [facility] Comment on above: Performed By: #### 2 247809, 0284592, 73678808, 1256563, 57778918, 4221885, 1384396, 5753233, 0775349, 7587970, 75408584 ####[facility] [address] [place] [address] Discharge Instructionson Discharge Instructions [id number]#1.00CD:12 7 Normal [facility] Ethanolon 08-31-2022 Ethanol [Mass/Vol] mg/dL Normal <=7 [facility] Comment on above: Performed By: #### 2 076619 ####[facility] [address] [place] [address] FSPon 08-31-2022 Fibrin+Fibrinogen fragments (S) [Mass/Vol] <10 Normal <10 [facility] Comment on above: Performed By: #### 2 760549, 3928545, 58217968, 2796375, 66169122, 8659391, 4543985, 2308002, 8954467, 4280500, 94219493 ####[place] [address] [place] [address] Stainon 08-31-2022 FMHV 0 mL Invalid Interpretation Code [facility] Comment on above: Performed By: #### 2 767867, 1310462, 08662079, 1455991, 70145076, 9395034, 1466086, 1917638, 1100819, 3443111, 45723832 ####[place] [address] [place] [address] Negative Control Negative Normal [facility] Comment on above: Performed By: #### 2 245473, 6135687, 29820605, 6705983, 33703959, 8467278, 4004397, 0484832, 5676042, 5778308, 52076233 ####[place] [address] [place] [address] Fibrinogenon 08-31-2022 Fibrinogen Coag (PPP) [Mass/Vol] 406 mg/dL High 200-393 [facility] Comment on above: Performed By: #### 2 601487, 4378433, 04886183, 0488519, 30977297, 4029084, 3575517, 8829831, 2919843, 9574845, 22571540 ####[facility] [address] [place] [address] Hep Func Panelon 08-31-2022 Bilirubin.indirect [Mass or moles/Vol] [facility] Abnormal 0.1-0.9 [facility] Comment on above: Result Comment: Resu lt verified by Discern Rule. Performed result [facility] (Unable to Calculate) was sent as an Alpha code due the inability to calculate a valid numeric value. Performed By: #### 2 415900, 1651963, 88247018, 9604328, 47414956, 2517965, 6335304, 0781370, 0197161, 2582538, 40284357 ####[facility] [address] [place] [address] Albumin [Mass/Vol] 2.8 g/dL Low 3.3-5.0 [facility] Comment on above: Performed By: #### 2 210126, 9760908, 87217270, 8233485, 79260810, 8251450, 5110388, 1821009, 2459122, 3800024, 13137865 ####[facility] [address] [place] [address] Albumin/Globulin (S) [Mass conc ratio] 0.7 Low 1.1-2.2 [facility] Comment on above: Performed By: #### 2 494432, 4830985, 01869104, 8277116, 77993003, 4696782, 2079470, 0419132, 6864985, 7499276, 34889345 ####[facility] [address] [place] [address] ALP [Catalytic activity/Vol] 80 Int._Unit/L Normal 21-98 [facility] Comment on above: Performed By: #### 2 254206, 3121008, 51291794, 6823221, 28006810, 3800545, 8254350, 8491278, 5864589, 6252650, 43585742 ####[facility] [address] [place] [address] ALT No additional P-5'-P [Catalytic activity/Vol] 10 Int._Unit/L Normal 6-46 [facility] Comment on above: Performed By: #### 2 483124, 8705468, 87429601, 8712397, 62324655, 7068558, 5608530, 3821458, 8761938, 7593407, 47740264 ####[facility] [address] [place] [address] AST [Catalytic activity/Vol] 16 Int._Unit/L Normal 5-43 [facility] Comment on above: Performed By: #### 2 884244, 4797450, 64164981, 7584705, 77182675, 4408362, 3678708, 0967303, 1396794, 0375041, 93568089 ####[address] [address] Bilirubin [Mass/Vol] 0.1 mg/dL Normal 0.0-1.1 [facility] Comment on above: Performed By: #### 2 658675, 9483163, 16075963, 6535193, 73725472, 2351970, 8272981, 5599429, 5998862, 2454918, 78972152 ####[address] [address] Bilirubin.direct [Mass/Vol] mg/dL Normal 0.1-0.4 [facility] Comment on above: Performed By: #### 2 157584, 2180360, 42707839, 3254121, 17938688, 3503999, 2919505, 8038639, 4026339, 3466821, 61031166 ####[place] [address] [place] [address] Globulin (S) [Mass/Vol] 3.8 g/dL Normal 1.4-4.0 [facility] Comment on above: Performed By: #### 2 213669, 2638755, 51584843, 0887411, 66408602, 0394698, 4287525, 2982437, 7088501, 9614306, 41444513 ####[facility] [address] [place] [address] Protein [Mass/Vol] 6.6 g/dL Normal 6.0-7.8 [facility] Comment on above: Performed By: #### 2 103702, 6019272, 50154311, 2805996, 38930119, 1930600, 4344326, 0753663, 8632712, 8119022, 37212129 ####[facility] [address] [place] [address] Inpatient Clinical Summaryon 08-31-2022 Inpatient Clinical Summary Normal [facility] Inpatient Patient Summaryon 08-31-2022 Inpatient Patient Summary Normal [facility] Lyteson 08-31-2022 Anion gap [Moles/Vol] 13 mmol/L Normal 6-16 [facility] Comment on above: Performed By: #### 2 108170, 1416102, 89223579, 3444402, 05403620, 6022948, 5375198, 9823787, 6730029, 1294322, 01076440 ####[facility] [address] [place] [address] Chloride [Moles/Vol] 104 mmol/L Normal 101-111 [facility] Comment on above: Performed By: #### 2 016313, 7557920, 41713456, 9866370, 04972528, 2262717, 4475537, 1263193, 7222700, 6749470, 13763576 ####[facility] [address] [place] [address] CO2 [Moles/Vol] 22 mmol/L Normal 21-31 [facility] Comment on above: Performed By: #### 2 423848, 6509030, 56889930, 5136951, 67908674, 8271618, 2456820, 9808067, 8048993, 9274274, 16383049 ####[facility] [address] [place] [address] Potassium [Moles/Vol] 3.5 mmol/L Normal 3.5-5.3 [facility] Comment on above: Performed By: #### 2 004534, 0643808, 52534886, 1654719, 43823469, 3048512, 1112611, 4590774, 3082366, 1910051, 61210277 ####[facility] [address] [place] [address] Sodium [Moles/Vol] 135 mmol/L Normal 135-145 [facility] Comment on above: Performed By: #### 2 846055, 1713734, 63196159, 9453479, 13447682, 6433480, 4316770, 8421277, 2395192, 0630630, 96614395 ####[facility] [address] [place] [address] Nursing Assessmenton 022 Nursing Assessment [id number]#1.00CD:12 7 Normal [facility] PT & PTTon 08-31-2022 aPTT Coag (PPP) [Time] 26.3 second(s) Normal 25.1-36.5 [facility] Comment on above: Result Comment: Para [...] the same coagulation reagent and instrumentation as [facility]. Currently there are no coagulation studies available worldwide for children to 14 days, and no normal ranges. Heparin therapeutic range (represented by Anti-Factor Xa activity of 0.2 - 0.4 U/mL) corresponds to PTT of 56.6 - 109.0 sec. Performed By: #### 2 193634, 8333464, 52134712, 8556966, 45436319, 7957498, 4594496, 0702852, 9849546, 8574841, 03521056 ####[facility] [address] [place] [address] INR Coag (PPP) [Relative time] 0.9 {INR} Invalid Interpretation Code [facility] Comment on above: Result Comment: INR results are specifically intended to assess patients stabilized on long-term Anticoagulation therapy suggested INR?s ?Less Intensive Anticoagulation? 2.0 ? 3.0Conventional Range 3.0 ? 4.5 Performed By: #### 2 707845, 4886187, 24632587, 8540368, 87617641, 7461233, 0678223, 1673501, 3525950, 8205176, 48905006 ####[facility] [address] [place] [address] PT Coag (PPP) [Time] 10.2 second(s) Normal 9.4-12.5 [facility] Comment on above: Result Comment: 15 [...] the same coagulation reagent and instrumentation as [facility]. Currently there are no coagulation studies available worldwide for children to 14 days, and no normal ranges. Performed By: #### 2 238795, 5142035, 84430328, 1859428, 92831290, 8016594, 8092006, 4044564, 7409578, 8587952, 57228356 ####[facility] [address] [place] [address] U Drug Screenon 08-31-2022 Amphetamines Screen method >1000 ng/mL Ql (U) Negative Normal Negative [facility] Comment on above: Result Comment: Nega tive Cutoff: <1000 ng/mL Performed By: #### 2 556696, 13751939 ####[facility] [address] [place] [address] Barbiturates Screen Ql (U) Negative Normal Negative [facility] Comment on above: Result Comment: Nega tive Cutoff: <200 ng/mL Performed By: #### 2 990231, 82173315 ####[facility] [address] [facility] [place] [address] Benzodiazepines Ql (U) Negative Normal Negative [facility] Comment on above: Result Comment: Nega tive Cutoff: <200 ng/mL Performed By: #### 2 484898, 47396296 ####[facility] [address] [facility] [place] [address] Cocaine Ql (U) Negative Normal Negative [facility] Comment on above: Result Comment: Nega tive Cutoff: <300 ng/mL Performed By: #### 2 451303, 66884743 ####[facility] [address] [facility] [place] [address] Opiates Screen Ql (U) Negative Normal Negative Fis [facility] Comment on above: Result Comment: Nega tive Cutoff: <300 ng/mL Performed By: #### 2 081526, 70722454 ####[facility] [address] [place] [address] Phencyclidine Screen method >25 ng/mL Ql (U) Negative Normal Negative [facility] Comment on above: Result Comment: Nega tive Cutoff: <25 ng/mLThese drug screen results are to be used for medical (i.e., treatment) purposes only. Unconfirmed drug screening results must not be used for non-medical purposes (e.g., employment testing, legal testing). Performed By: #### 2 061853, 71639668 ####[facility] [address] [place] [address] Tetrahydrocannabinol Screen method >50 ng/mL Ql (U) Negative Normal Negative [facility] Comment on above: Result Comment: Nega tive Cutoff: <50 ng/mL Performed By: #### 2 541294, 92247725 ####[facility] [address] [place] [address] UA With Cult Reflexon 2021 Bacteria LM Ql (Urine sed) TRACE Normal Trace [facility] Comment on above: Performed By: #### 2 078025, 28673867 ####[facility] [address] [place] [address] Bilirubin Ql (U) Negative Normal Negative [facility] Comment on above: Performed By: #### 2 998897, 58729243 ####[address] [address] Clarity (U) CLEAR Normal Clear [facility] Comment on above: Performed By: #### 2 099856, 01236465 ####[facility] [address] [place] [address] Color (U) YELLOW Normal Yellow [facility] Comment on above: Performed By: #### 2 689035, 06688165 ####[facility] [address] [place] [address] Epithelial cells.squamous LM.HPF (Urine sed) [#/Area] 0-2 Normal 0-2 [facility] Comment on above: Performed By: #### 2 443027, 84016563 ####[facility] [address] [place] [address] Glucose Test strip (U) [Mass/Vol] Negative Normal Negative [facility] Comment on above: Performed By: #### 2 282066, 82732374 ####[facility] [address] [place] [address] Hemoglobin Ql (U) Negative Normal Negative [facility] Comment on above: Performed By: #### 2 224320, 21896532 ####[facility] [address] [place] [address] Ketones (U) [Mass/Vol] Negative Normal Negative [facility] Comment on above: Performed By: #### 2 542770, 30104888 ####[facility] [address] [place] [address] [place].plasma/[place] .RBC (Bld) [Mass ratio] 0-3 Normal 0-3 [facility] Comment on above: Performed By: #### 2 107963, 07379821 ####[facility] [address] [place] [address] Nitrite Ql (U) Negative Normal Negative [facility] Comment on above: Performed By: #### 2 659657, 27990697 ####[address] [address] pH (U) 6.0 [pH] Invalid Interpretation Code 5.0-9.0 [facility] Comment on above: Performed By: #### 2 939404, 90879097 ####[facility] [address] [place] [address] Protein (U) [Mass/Vol] Negative Normal Negative [facility] Comment on above: Performed By: #### 2 766141, 33203391 ####[facility] [address] [place] [address] Specific gravity (U) [Rel density] 1.010 Invalid Interpretation Code 1.005-1.030 [facility] Comment on above: Performed By: #### 2 890602, 94805116 ####[facility] [address] [place] [address] Type of Urine collection method Clean Catch Normal [facility] Comment on above: Performed By: #### 2 812613, 03478172 ####[facility] [address] [place] [address] Urobilinogen Qn (U) 0.2 {Rola'U}/dL Normal 0.0-1.0 [facility] Comment on above: Performed By: #### 2 336809, 36212581 ####[facility] [address] [place] [address] WBC Auto Ql (U) Negative Normal Negative [facility] Comment on above: Performed By: #### 2 641802, 28501206 ####[facility] [address] [place] [address] WBC LM.HPF (Urine sed) [#/Area] 0-5 Normal 0-5 [facility] Comment on above: Performed By: #### 2 333544, 10612855 ####[facility] [address] [place] [address] Uric Acidon 08-31-2022 Urate [Mass/Vol] 5.0 mg/dL Normal 2.2-7.4 [facility] Comment on above: Performed By: #### 2 046804, 9493575, 34540339, 3914979, 46855527, 9892382, 4086199, 4355747, 5816478, 5580925, 31284542 ####[facility] [address] [place] [address] eGFRon 08-31-2022 GFR/1.73 sq M.predicted among blacks MDRD (S/P/Bld) [Vol rate/Area] mL/min/{1.73_m2} Normal >=59 [facility] Comment on above: Order Comment: Order added by Discern Expert. Result Comment: eGFR is race adjusted. AA=. Performed By: #### 2 287584, 1003714, 54308706, 6026192, 85674038, 9091977, 5086414, 6274821, 8084731, 3368249, 21201472 ####[facility] [address] [place] [address] GFR/1.73 sq M.predicted among non-blacks MDRD (S/P/Bld) [Vol rate/Area] mL/min/{1.73_m2} Normal >=59 [facility] Comment on above: Order Comment: Order added by Discern Expert. Result Comment: Unisaw Operator lucy kidney disease could be indicated at eGFR's of less than 60 mL/min/1.73m2. Kidney failure is indicated at less than 15 mL/min/1.73m2. Performed By: #### 2 692928, 6672123, 10174136, 5827596, 14824484, 3069934, 4725756, 6413950, 8863701, 2693880, 88989490 ####[facility] [address] [place] [address] BLOOD BANKOrdered By: Naldo Li on 08-30-2022 [...] Consent for Treatmenton 08-15 Consent for Treatment [id number]#1.00CD:12 7 Normal [facility] HEMATOLOGYOrdered By: Naldo Li on 08-30-2022 [...] PM) Normal Negative [facility] UA Auto SS [place].plasma/[place] .RBC (Bld) [Mass ratio] 0-3 /HPF Normal [...] [facility] UA Auto SS Urobilinogen Qn (U) 0.2153273 {Rola'U}/dL Normal 0.0 - 1.0 EU/dL [facility] UA Auto SS WBC Auto Ql (U) Negative (08/30/22 9:45 PM) Normal Negative [facility] UA Auto SS WBC LM.HPF (Urine sed) [#/Area] 0-5 /HPF Normal 0-5/HPF [facility] UA Auto SS Coding Summary.on 08-28-2022 Coding Summary. Normal [facility] BLOOD BANKOrdered By: Janet Reyes on 08-22-2022 ABO/Rh Interp Positive Invalid Interpretation Code FT BB Subsection ABSC Gel Interp Negative (08/22/22 4:03 PM) Normal FT BB Subsection FMHV 0 mL Invalid Interpretation Code [facility] Man Sero CHEMISTRYOrdered By: SYSTEM SYSTEM on [...] PM) Normal Negative [facility] UA Auto SS [place].plasma/[place] .RBC (Bld) [Mass ratio] 0-3 /HPF Normal [...] [facility] UA Auto SS Urobilinogen Qn (U) 0.9705348 {Rola'U}/dL Normal 0.0 - 1.0 EU/dL [facility] [...] AM) Normal Negative [facility] UA Auto SS [place].plasma/[place] .RBC (Bld) [Mass ratio] 0-3 /HPF Normal [...] [facility] UA Auto SS Urobilinogen Qn (U) 0.2847060 {Rola'U}/dL Normal 0.0 - 1.0 EU/dL [facility] [...] Subsection FMHV 0 mL Invalid Interpretation Code [facility] Man Sero CHEMISTRYOrdered By: SYSTEM SYSTEM on [...] Interpretation Code Negative [facility] UA Auto SS [place].plasma/[place] .RBC (Bld) [Mass ratio] 0-3 /HPF Normal [...] [facility] UA Auto SS Urobilinogen Qn (U) 0.6588068 {Rola'U}/dL Normal 0.0 - 1.0 EU/dL [facility] [...] AM) Normal Negative [facility] UA Auto SS [place].plasma/[place] .RBC (Bld) [Mass ratio] 0-3 /HPF Normal [...] [facility] UA Auto SS Urobilinogen Qn (U) 0.2368288 {Rola'U}/dL Normal 0.0 - 1.0 EU/dL [facility] [...] AM) Normal Negative [facility] UA Auto SS [place].plasma/[place] .RBC (Bld) [Mass ratio] 0-3 /HPF Normal [...] [facility] UA Auto SS Urobilinogen Qn (U) 0.3436220 {Rola'U}/dL Normal 0.0 - 1.0 EU/dL [facility] UA Auto SS WBC Auto Ql (U) Negative (07/17/22 9:25 AM) Normal Negative [facility] UA Auto SS WBC LM.HPF (Urine sed) [#/Area] 0-5 /HPF Normal 0-5/HPF [facility] UA Auto SS CHEMISTRYOrdered By: [facility] on 06-28-2022 Glucose 1 Hr post 50 g glucose PO [Mass/Vol] 93 mg/dL Normal 55 - 140 mg/dL [facility] Remisol HEMATOLOGYOrdered By: Keila Ring on 06-28-2022 Hematocrit (Bld) [Volume fraction] 35.4 % Normal 34.0 - 46.0 % [facility] HemeAutoSS Hemoglobin (Bld) [Mass/Vol] 12.1 g/dL Normal 12.0 - 16.0 gm/dL [facility] HemeAutoSS BLOOD BANKOrdered By: Jeanette Castle on 06-19-2022 ABO/Rh Interp Positive Invalid Interpretation Code [facility] BB Subsection ABSC Gel Interp Negative (06/19/22 12:15 AM) Normal [facility] [facility] BB Subsection FMHV 0 mL Invalid Interpretation Code [facility] Man Sero CHEMISTRYOrdered By: [facility] on 06-19-2022 Albumin [Mass/Vol] 2.9 g/dL Low 3.3 - 5.0 gm/dL [facility] Remisol Albumin/Globulin [Mass ratio] 0.8 {ratio} Low [...] rate/Area] mL/min/1.73 m2 Normal >=59mL/min/ 1.73 m2 [facility] Chem S Globulin (S) [Mass/Vol] 3.5 g/dL [...] PM) Normal Negative [facility] UA Auto SS [place].plasma/[place] .RBC (Bld) [Mass ratio] 0-3 /HPF Normal [...] [facility] UA Auto SS Urobilinogen Qn (U) 0.5330834 {Rola'U}/dL Normal 0.0 - 1.0 EU/dL [facility] [...] PM) Normal Negative [facility] UA Auto SS [place].plasma/[place] .RBC (Bld) [Mass ratio] 0-3 /HPF Normal [...] Desc Random Urine (05/01/22 5:20 PM) Normal [facility] UA Auto SS Urobilinogen Qn (U) 1.1517416 {Rola'U}/dL Normal 0.0 - 1.0 EU/dL [facility]A Auto SS WBC Auto Ql (U) Negative (05/01/22 5:20 PM) Normal Negative [facility]A Auto SS WBC LM.HPF (Urine sed) [#/Area] 0-5 /HPF Normal 0-5/HPF [facility] UA Auto SS BLOOD BANKOrdered By: Shayy Medina on 04-02-2022 ABO/Rh Interp Positive Invalid Interpretation Code [facility] BB Subsection ABSC Gel Interp Negative (04/02/22 7:17 AM) Normal [facility] BB Subsection FMHV 0 mL Invalid Interpretation Code [facility] Man Sero CHEMISTRYOrdered By: SYSTEM SYSTEM on [...] [Mass/Vol] <10 (04/02/22 7:17 AM) Normal <10 [facility] Sero Fibrinogen Coag (PPP) [Mass/Vol] 399 [...] - 11.0 E9/L [facility] HemeAutoSS URINALYSISOrdered By: Teim Romero on 04-02-2022 Bacteria LM Ql (Urine [...] AM) Normal Negative [facility] UA Auto SS [place].plasma/[place] .RBC (Bld) [Mass ratio] 0-3 /HPF Normal [...] [facility] UA Auto SS Urobilinogen Qn (U) 0.0692293 {Rola'U}/dL Normal 0.0 - 1.0 EU/dL [facility] [...] PM) Normal Negative [facility] UA Auto SS [place].plasma/[place] .RBC (Bld) [Mass ratio] 0-3 /HPF Normal [...] [facility] UA Auto SS Urobilinogen Qn (U) 0.0289443 {Rola'U}/dL Normal 0.0 - 1.0 EU/dL [facility] [...] 6.7 E9/L Normal 4.0 - 11.0 E9/L [facility] HemeAutoSS Reference Laboratory Testing Ordered By: Stephanie Diana on 02-15-2022 Test Code 613239 Invalid Interpretation Code [facility] SendOutsSS Test Name IG PAP CTNG HPV Invalid Interpretation Code [facility] [place] [facility] CNPN Telephone (GSTCON) ----- SUSAN BRO ([id number]) 1995 F Date Time Provider Department 05/05/21 MARTHA WEBB During your visit today, we recorded the following information about you: Tucker Bales Nursing Home Administrator 05/05/2021 10:37 AM Signed Patient left message [...] diligent work on this patient Tucker Amairani Nursing Home Administrator 05/24/2021 2:23 PM Signed patient called and left a message today stating she needs to get this figured out she has not eaten in 3 days and cant even drink water now. Patient can be reached at [phone]- please read messages below for refresher Martha Webb MD 05/24/2021 4:30 PM Signed Please advise patient to go to ER for evaluation Tucker Bales Nursing Home Administrator 05/24/2021 4:35 PM Signed Had to leave a message for the patient, left the message to go to ER. Also returned the call to [facility] and spoke to Alejandra that patient needs to go to ER for evalution. 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 AT ONSET OF HEADACHE. MAY REPEAT AFTER 2 HOURS. DO NOT EXCEED 30 MG PER DAY. Problem List As Of Date: 05/05/2021 (None) Encounter Status:Closed by TUCKER LARA on 05/06/21 [facility] [place] 04-07-2021 CNPN Telephone (GSTCON) ----- SUSAN BRO ([id number]) 1995 F Date Time Provider Department 04/07/21 MARTHA WEBB During your visit today, we recorded the following information about you: Tucker Bales Nursing Home Administrator 04/07/2021 12:31 PM Signed NM called and they need the GES solid orde rplaced even though she has to use ensure, please sign order in this encounter Allergies As of Date: 04/07/2021 Noted Allergy Reaction PENICILLINS 03/10/2021 2 - Rash Date Reviewed: 04/01/2021 Reviewed by: Odette Agosto MD - Fully Assessed Reason for Visit: Orders [681] Visit Diagnosis:Nausea [R11.0] Order(s):NM GASTRIC EMPTYING SOLID [[id number]] Order #: [id number] FUTURE Prescriptions as of 04/07/2021 Sig: AMITRIPTYLINE 10 MG TABLET Take 1 tab at bed x 1 week, t* RIZATRIPTAN 10 MG DISINTEGRAT* Take 1 tablet by mouth as nee* Problem List As Of Date: 04/07/2021 (None) Encounter Status:Closed by MARTHA WEBB on 04[facility]07/21 [facility] (GSTCON) ----- SUSAN BRO ([id number]) 1995 F Date Time Provider Department 04/04/21 MARTHA WEBB GSTCON During your visit today, we recorded the following information about you: Tucker Bales Nursing Home Administrator 04/04/2021 1:40 PM Signed Patient called and is still waiting for you to place the order for her GES with ensure, she cant eat the eggs and toast Martha Webb MD 04/04/2021 4:48 PM Signed Let patient know I placed the order Tucker Bales Nursing Home Administrator 04/05/2021 11:41 AM [address] you place [...] Visit Diagnosis:Nausea [R11.0] Order(s):NM GASTRIC EMPTYING LIQUID [[id number]] Order #: [id number] FUTURE Prescriptions as of 04/04/2021 Sig: AMITRIPTYLINE 10 MG TABLET Take 1 tab at bed x 1 week, t* RIZATRIPTAN 10 MG DISINTEGRAT* Take 1 tablet by mouth as nee* Problem List As Of Date: 04/04/2021 (None) Encounter Status:Closed by MARTHA WEBB on 04/05/21 [facility] CNOVon 04-01-2021 CNOV Office Visit (NHMNS2 ) ----- SUSAN BRO ([id number]) 1995 F Date Time Provider Department 04/01/21 8:00 AM BERT NEGRETE OHMNS2 During your visit today, we recorded the following information about you: Pulse Blood pressure Weight Height 72/minute 111/67 70.9 kg 1.626 m Last Period 02/23/21 Rigoberto Zimmer Md 04/01/2021 7:54 AM Addendum Please start taking [...] at least 3 months. These include all fknh-eck-khgebdp medications, triptans, narcotics, and butalbital containing medications [...] There h (more content not included)... Normal [facility] 03-22-2021 CNPN Telephone (GSTCON) ----- SUSAN BRO ([id number]) 1995 F Date Time Provider Department 03/22/21 MARTHA WEBB During your visit today, we recorded the following information about you: Tucker Bales Nursing Home Administrator 03/22/2021 2:28 PM Signed Received: Today Martha Webb MD [facility] [place]; Tucker Bales Nursing Home Administrator Let patient know esophagram was normal Next step is gastric emptying study I placed order for gastric emptying study Tucker Bales Nursing Home Administrator 03/22/2021 2:28 PM Signed Pt is notified, will schedule the GES Allergies As of Date: 03/22/2021 Noted Allergy Reaction PENICILLINS 03/10/2021 2 - Rash Date Reviewed: 03/10/2021 Reviewed by: Martha Webb MD - Fully Assessed Reason for Visit: Results [95] Problem List As Of Date: 03/22/2021 (None) Encounter Status:Closed by TUCKER LARA on 03/22/[address] [facility] ESOPHAGRAMon 03-17-2021 XR ESOPHAGRAM * * [...] symptoms. Other Findings: None. IMPRESSION: Normal esophagram. Home Sales Service Professional: EDENB Transcribe Date/Time: Mar 17 2021 11:15A Dictated by : CRISTÓBAL SALINAS DO This examination was interpreted and the report reviewed and electronically signed by: CRISTÓBAL SALINAS DO on Mar 17 2021 11:18AM EST [id number] (GSTCON ) ----- SUSAN BRO ([id number]) 1995 F Date Time Provider Department 03/10/21 11:15 AM MARTHA WEBB GSTCON During your visit today, we recorded the following information about you: Pulse Blood pressure Weight Height 69/minute 108/76 73 kg 1.626 m Mratha Webb MD 03/10/2021 12:03 PM Signed This note was created using MVP Vaultriter. Subjective Susan Bro is a 25 year [...] COMMENT: Un (more content not included)... Normal [facility] [place] [facility] ----- SUSAN BRO ([id number]) 1995 F Date Time Provider Department 03/10/21 MARTHA WEBB During your visit today, we recorded the following information about you: Don Trevino Nursing Home Administrator 03/10/2021 1:24 PM Signed Failed fax in [employer]Out from 03/10/2021 regarding this patient from Dr. Webb. Faxed manually to [phone]. Scanned fax confirmation/documents into [employer]. Don Trevino Nursing Home Administrator Allergies As of Date: 03/10/2021 Noted Allergy Reaction PENICILLINS 03/10/2021 2 - Rash Date Reviewed: 03/10/2021 Reviewed by: Martha Webb MD - Fully Assessed Reason for Visit: Electronic Communication [890] Problem List As Of Date: 03/10/2021 (None) Encounter Status:Closed by DON DIAZ on 03/10/21 Normal [facility] CBC WITH AUTO DIFFERENTIALon 10-14-2020 Basophils (Bld) [#/Vol] 0.06 10*3/uL [facility] Basophils/100 WBC (Bld) 0.6 % [facility] Eosinophils (Bld) [#/Vol] 0.36 10*3/uL [facility] Eosinophils/100 WBC (Bld) 3.4 % [facility] Erythrocyte distribution width (RBC) [Entitic vol] 13.2 % 11.6 - 14.8 % [facility] Hematocrit (Bld) [Volume fraction] 43.2 % 36 - 46 % [facility] Hemoglobin (Bld) [Mass/Vol] 14.1 g/dL 12 - 16 g/dL [facility] Immature granulocytes (Bld) [#/Vol] 0.03 10*3/uL [facility] Immature granulocytes/100 WBC (Bld) 0.30 % [facility] Comment on above: The IG parameter is the percentage of metamyelocytes, myelocytes and promyelocytes. An immature granulocyte count (IG) of 1% or more suggests the possibility of infection, an IG count of 3% is very likely related to an infection. Interpretation and review of laboratory results Abnormal [facility] Lymphocytes (Bld) [#/Vol] 1.47 10*3/uL [facility] Lymphocytes/100 WBC (Bld) 13.8 % [facility] MCH (RBC) [Entitic mass] 29.6 pg 26 - 34 pg [facility] MCHC (RBC) [Mass/Vol] 32.6 g/dL 31 - 3 7 g/dL [facility] MCV (RBC) [Entitic vol] 90.6 fL 80 - 100 fL [facility] Monocytes (Bld) [#/Vol] 0.58 10*3/uL [facility] Monocytes/100 WBC (Bld) 5.5 % [facility] Neutrophils (Bld) [#/Vol] 8.12 10*3/uL High [facility] Neutrophils/100 WBC (Bld) 76.4 % [facility] Nucleated RBC (Bld) [#/Vol] 0.00 10*3/uL [facility] Nucleated RBC/100 WBC (Bld) [Ratio] 0.0 % [facility] Platelet mean volume (Bld) [Entitic vol] 10.3 fL 9.4 - 12.4 fL [facility] Platelets (Bld) [#/Vol] 251 10*3/uL [facility] RBC (Bld) [#/Vol] 4.77 10*6/uL [facility] ealth WBC (Bld) [#/Vol] 10.62 10*3/uL [facility] COVID-19/INFLUENZA A,B [facility] 10-14-2020 COVID-19/INFLUENZA A,B MOLECULAR SARS-COV-2 (SANA): Not Detected INFLUENZA A (SANA): Not Detected INFLUENZA B (SANA): Not Detected Normal Not Detected [facility] Comment on above: Order [...] at the following links: For Healthcare Providers: https://www.fda.gov/media/931424/download For Patients: https://www.fda.gov/media/739551/download Performed By: #### L [id number] #### [facility] [address] [facility] [place], [place] [address] Raffy Yadav M.D. [id number] COVID-19/Influenza A,B [facility] ularon 10-14-2020 Influenza A Not Detected Not Detected [facility] Influenza B Not Detected Not Detected [facility] Interpretation and review of laboratory results Normal [facility] SARS-CoV-2 Not Detected Not Detected [facility] This test was perfor med under [...] the following links: For Healthcare Providers: https://www.fda.gov/media /434123/download For Patients: https://www.fda.gov/media /032907/download [facility] CT HEAD OR BRAIN WITHOUT CON [...] on SunOct 14, 2020 11:28:15 AM EST [facility] Comment on above: Order Comment: Injur y/Trauma [...] orbits and paranasal sinuses are grossly unremarkable. [facility] 1. No acute intracra nial hemorrhage, focal edema or mass effect. Workstation ID: [id number] [facility] In Fu ji Speechq - 10/14/2020 [...] edema or mass effect. Workstation ID: [id number] [facility] Chem 7on 10-14-2020 Anion gap [Moles/Vol] 8 mmol/L Low 10 - 2 0 mmol/L [facility] Chloride [Moles/Vol] 112 mmol/L High 98 - 10 8 mmol/L [facility] Creatinine [Mass/Vol] 0.78 mg/dL 0.40 - 1.10 [facility] GFR/1.73 sq M predicted among non-blacks MDRD (S/P/Bld) [Vol rate/Area] The eGFR should be used for monitoring renal function only and not for medication dosing. [facility] GFR/1.73 sq M.predicted CKD-EPI (S/P/Bld) [Vol rate/Area] 105 >=60 mL/min/1.73 m2 [facility] Glucose [Mass/Vol] 78 mg/dL 65 - 99 mg/dL [facility] HCO3 [Moles/Vol] 24 mmol/L 21 - 32 mmol/L [facility] Interpretation and review of laboratory results Abnormal [facility] Potassium [Moles/Vol] 4.5 mmol/L 3.5 - 5.1 mmol/L [facility] Comment on above: moderate hemolysis, result may be falsely increased. Sodium [Moles/Vol] 139 mmol/L 135 - 145 mmol/L [facility] Urea nitrogen [Mass/Vol] 5 mg/dL Low 8 - 25 mg/dL [facility] Urea nitrogen/Creatinine [Mass ratio] 6.4 mg/mg Low [facility] Otheron 10-14-2020 Extra Tube Hold for add-ons. [facility] Comment on above: Auto resulted. URINALYSISon 10-14-2020 Bacteria Auto Ql (U) None Seen None Se en /hpf [facility] Bilirubin Ql (U) Negative Negative [facility] Clarity Refractometry automated (U) Cloudy Abnormal Clear [facility] Color (U) Yellow Colorless, Yellow [facility] Epithelial cells.squamous Auto (Urine sed) [#/Area] 18 High [facility] Glucose Auto test strip (U) [Mass/Vol] Negative Negative mg/dL [facility] Hemoglobin Auto test strip Ql (U) Negative Negative [facility] Interpretation and review of laboratory results Abnormal [facility] Ketones (U) [Mass/Vol] Negative Negat juju mg/dL [facility] Leukocyte esterase Auto test strip Ql (U) Trace Abnormal Negative [facility] h Mucus Auto (Urine sed) [#/Area] Many Abnormal None Seen, Rare /lpf [facility] Nitrite Auto test strip Ql (U) Negative Negative [facility] pH (U) 8.0 [pH] High [facility] Protein (U) [Mass/Vol] 30 Abnormal Negat juju mg/dL [facility] Comment on above: False positive resul ts may occur in urines with large amounts of hemoglobin, pH greater than 8.0, contrast medium, or disinfectants including ammonium compounds. RBC Auto (Urine sed) [#/Area] 3 [facility] Specific gravity (U) [Rel density] 1.028 High [facility] Urobilinogen (U) [Mass/Vol] 2.0 mg/dL Abnormal <2.0 [facility] WBC Auto (Urine sed) [#/Area] 3 [facility] Microscopic examinat ion is performed on all urinalysis samples and only positive findings are reported. The test for blood on the chemical analytic portion of urinalysis may also be positive due to hemoglobinuria and myoglobinuria and if red blood cells are present they are quantified by microscopic examination. [facility] hCG Urine, Qualitativeon HCG ( test) Ql (U) Negative Negative [facility] Interpretation and review of laboratory results Normal [facility] ABDOMEN, COMPLT ACUTE SERIES on 09-05-2020 ABDOMEN, COMPLT ACUTE SERIES Patient Name: SUSAN BRO STUDY: ABDOMEN, COMPLT ACUTE SERIES; 09/04/2020 11:54 pm INDICATION: constipation. COMPARISON: None. ACCESSION NUMBER(S): [id number] ORDERING CLINICIAN: BRAYDEN YANEZ TECHNIQUE: Abdomen supine [...] pathology. Electronically signed by: CANDACE AREVALO MD [facility] BASIC METABOLIC PANELon 11-2 Anion gap [Moles/Vol] 12 mmol/L Normal 10 - 20 [facility] Comment on above: Performed By: #### B MP #### [address] [address] Calcium [Mass/Vol] 9.0 mg/dL Normal 8.6 - 10.3 [facility] Comment on above: Performed By: #### B MP #### [address] [address] Chloride [Moles/Vol] 105 mmol/L Normal 98 - 107 [facility] Comment on above: Performed By: #### B MP #### [address] [address] Creatinine [Mass/Vol] 0.90 mg/dL Normal 0.50 - 1.05 Located within [facility] Comment on above: Performed By: #### B MP #### [address] [address] GFR- AM. >60 Normal >60 [facility] Comment on above: Result Comment: CALC ULATIONS OF ESTIMATED GFR ARE PERFORMED USING THE MDRD STUDY EQUATION FOR THE IDMS-TRACEABLE CREATININE METHODS. CLIN CHEM 2007;53:766-72 Performed By: #### B MP #### [address] [address] GFR-NON AM. >60 Normal >60 [facility] Comment on above: Performed By: #### B MP #### [address] [address] Glucose [Mass/Vol] 96 mg/dL Normal 74 - 99 [facility] Comment on above: Performed By: #### B MP #### [address] [address] HCO3 (Bld) [Moles/Vol] 25 mmol/L Normal 21 - 32 [facility] Comment on above: Performed By: #### B MP #### [address] [address] Potassium [Moles/Vol] 3.5 mmol/L Normal 3.5 - 5.3 [facility] Comment on above: Performed By: #### B MP #### [address] [address] Sodium [Moles/Vol] 138 mmol/L Normal 136 - 145 [facility] Comment on above: Performed By: #### B MP #### [address] [address] Urea nitrogen [Mass/Vol] 7 mg/dL Normal 6 - 23 [facility] Comment on above: Performed By: #### B MP #### [address] [address] CBCon 09-05-2020 Erythrocyte distribution width (RBC) [Ratio] 13.2 % Normal 11.5 - 14.5 [facility] Comment on above: Performed By: #### C BC #### [address] [address] Hematocrit (Bld) [Volume fraction] 42.5 % Normal 36.0 - 46.0 [facility] Comment on above: Performed By: #### C BC #### [address] [address] Hemoglobin (Bld) [Mass/Vol] 14.5 g/dL Normal 12.0 - 16.0 [facility] Comment on above: Performed By: #### C BC #### [address] [address] MCHC (RBC) [Mass/Vol] 34.2 g/dL Normal 32.0 - 36.0 [facility] Comment on above: Performed By: #### C BC #### [address] [address] MCV (RBC) [Entitic vol] 88 fL Normal 80 - 100 [facility] Comment on above: Performed By: #### C BC #### [address] [address] Platelets (Bld) [#/Vol] 272 10*3/uL Normal 150 - 450 [facility] Comment on above: Performed By: #### C BC #### [address] [address] RBC (Bld) [#/Vol] 4.86 x10E12/L Normal 4.00 - 5.20 [facility] Comment on above: Performed By: #### C BC #### [address] [address] WBC (Bld) [#/Vol] 12.5 10*3/uL High 4.4 - 11.3 [facility] Comment on above: Performed By: #### C BC #### [address] [address] HCG,URINEon 09-05-2020 Beta HCG ( test) Ql (U) Negative Normal Negative [facility] Comment on above: Performed By: #### H CGU #### [address] [address] Provider Note - ED v2on 08-16 Provider [...] SIGNIFICANT EVENTS: Past Medical History Description:H Pilory CALL OR CONTACT CENTRE MANAGER: Is : no(1) Is : no(1) [...] - ED 04-Sep-2020 22:51 [facility] Risk Screen - Adult Emergenc yon 09-05-2020 Risk Screen - Adult Emergency Preferred Language: Preferred Language: Preferred Language for Discussing Health Care (patient/designee)German Advanced Directives: Advance Directive/DNRno Family Violence Adult: [...] an injured patient at a Trauma Center ([facility]/[place]/ [place]): no Electronic Signatures: Nette Dorantes (SUPV) (Signed 04-Sep-2020 23:08) Authored: Preferred Language, Advanced Directives, Family Violence Adult, Learning Assessment (Patient), Learning Assessment (Other Learner), Pressure Injury/TB/Substance, Pressure Injury, CAGE Last Updated: 04-Sep-2020 23:08 by Nette Dorantes (SUPV) [facility] Triage - EDon 09-05-2020 Triage - ED [...] BMI (kg/m2): 38.627 Calculated BSA (m2) 2.15 Farley Coma Scale: Best Eye Response: (E4) spontaneous Best Motor Response: (M6) obeys commands Best Verbal Response: (V5) oriented Farley Score: 15 Cough lasting greater than 3 weeks: no Patient immunocompromised related to: N/A Allergies: yes Last menstrual period: 05-Aug-2020 CALL OR CONTACT CENTRE MANAGER History: (states no form of BC) [...] 04-Sep-2020 23:01 by Nette Dorantes (SUPV) Normal [facility] URINALYSISon 09-05-2020 Appearance (U) CLEAR Normal CLEAR [facility] Comment on above: Performed By: #### U A #### [address] [address] Bilirubin (U) [Mass/Vol] Negative Normal NEGATIVE [facility] Comment on above: Performed By: #### U A #### [address] [address] BLOOD Negative Normal NEGATIVE [facility] Comment on above: Performed By: #### U A #### [place] [id number] Color (U) Yellow Normal STRAW,YELLO W [facility] Comment on above: Performed By: #### U A #### [address] [address] Glucose [Mass/Vol] Negative Normal NEGATIVE [facility] Comment on above: Performed By: #### U A #### [address] [address] Ketones Ql (U) Negative Normal NEGATIVE [facility] Comment on above: Performed By: #### U A #### [address] [address] Leukocyte esterase Test strip Ql (U) Negative Normal NEGATIVE [facility] Comment on above: Performed By: #### U A #### [address] [address] Nitrite Ql (U) Negative Normal NEGATIVE [facility] Comment on above: Performed By: #### U A #### [place] [id number] pH (Bld) 5.0 Normal 5.0 - 8.0 [facility] Comment on above: Performed By: #### U A #### [address] [address] Protein (U) [Mass/Vol] Negative Normal NEGATIVE [facility] Comment on above: Performed By: #### U A #### [address] [address] Specific gravity (U) [Rel density] 1.015 Normal 1.005 - 1.035 [facility] Comment on above: Performed By: #### U A #### [place] [address] [place] [address] Urobilinogen Qn (U) <2.0 Normal 0.0 - 1.9 [facility] Comment on above: Performed By: #### U A #### [address] [address] , Urineon 0 Beta HCG ( test) Ql (U) Negative NEGATIVE [facility] Comment on above: Specimens with hCG l evels near the threshold of the test (25 mIU/mL) may give a negative or indeterminate result. In such cases, another test should be performed with a new specimen in 48-72 hours. If early is suspected clinically in this setting, correlation with quantitative serum b-hCG level is suggested. [employer] has confirmed the use of plasma for this test. This has not been cleared or approved by the U.S. Food and Drug Administration. The FDA has determined that such clearance is not necessary. XR ELBOW RIGHT (2 VIEWS)on 1 Ren, [facility] Incoming Radiant Results From [facility] - 08/09/2020 8:04 PM EDT EXAMINATION: TWO XRAY VIEWS OF THE RIGHT ELBOW 08/09/2020 7:50 pm COMPARISON: None. HISTORY: ORDERING SYSTEM PROVIDED HISTORY: Fall TECHNOLOGIST PROVIDED HISTORY: Fall FINDINGS: There is no elbow effusion. There is no acute fracture or dislocation. Alignment is normal. IMPRESSION: No acute abnormality. [employer] [place] EXAMINATION: TWO XRA Y VIEWS OF THE RIGHT ELBOW 08/09/2020 7:50 pm COMPARISON: None. HISTORY: ORDERING SYSTEM PROVIDED HISTORY: Fall TECHNOLOGIST PROVIDED HISTORY: Fall FINDINGS: There is no elbow effusion. There is no acute fracture or dislocation. Alignment is normal. [employer] [place] No acute abnormality. [facility] [employer] [place] XR FEMUR RIGHT (MIN 2 VIEWS) on 08-09-2020 No acute osseous abnormality. [employer] [place] Ren, [facility] Incoming Radiant Results From [facility] - 08/09/2020 8:02 PM EDT EXAMINATION: 2 [...] tissue abnormality. IMPRESSION: No acute osseous abnormality. [employer] EXAMINATION: 2 XRAY VIEWS OF THE RIGHT [...] osseous lesion. No focal soft tissue abnormality. [employer] XR KNEE RIGHT (3 VIEWS)on EXAMINATION: THREE X RAY VIEWS OF THE RIGHT KNEE 08/09/2020 7:50 pm COMPARISON: None. HISTORY: ORDERING SYSTEM PROVIDED HISTORY: Fall TECHNOLOGIST PROVIDED HISTORY: Fall FINDINGS: No acute fracture. Joint spaces are preserved. No joint effusion. [employer] Ren, [facility] Incoming Radiant Results From [facility] - 08/09/2020 8:04 PM EDT EXAMINATION: THREE XRAY VIEWS OF THE RIGHT KNEE 08/09/2020 7:50 pm COMPARISON: None. HISTORY: ORDERING SYSTEM PROVIDED HISTORY: Fall TECHNOLOGIST PROVIDED HISTORY: Fall FINDINGS: No acute fracture. Joint spaces are preserved. No joint effusion. IMPRESSION: Negative right knee radiographs. [employer] Negative right knee radiographs. [employer] XR SHOULDER RIGHT (MIN 2 VIE WS)on 08-09-2020 Ren, [facility] Incoming Radiant Results From [facility] - 08/09/2020 8:03 PM EDT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 00:50-0500 Systolic blood pressure 112 mm[Hg] Luis Carlos Jung [facility] 08-30-2022 21:52-0500 Body temperature 98.06 [degF] Luis Carlos Jung [facility] 08-30-2022 21:52-0500 Diastolic blood pressure 74 mm[Hg] Luis Carlos Jung [facility] 08-30-2022 21:52-0500 Heart rate 82 /min Luis Carlos Jung [facility] 08-30-2022 21:52-0500 Mean blood pressure 90 mm[Hg] Luis Carlos Jung [facility] 08-30-2022 21:52-0500 Respiratory rate 18 /min Luis Carlos Jung [facility] 08-30-2022 21:52-0500 Systolic blood pressure 123 mm[Hg] Luis Carlos Jung [facility] 08-30-2022 21:45-0500 Blood Pressure Location Luis Carlos Jung [facility] 08-22-2022 17:19-0500 Hourly Rounding Luis Carlos Jung [facility] Comment on above: Result Comment: MONITORS OFF; PT UP TO D RESS. DISCHARGE INSTRUCTIONS GIVEN WITH VERBAL UNDERSTANDING. 08-22-2022 15:14-0500 Diastolic blood pressure 71 mm[Hg] Luis Carlos Jung [facility] 08-22-2022 15:14-0500 Heart rate 87 /min Luis Carlos Jung [facility] 08-22-2022 15:14-0500 Hourly Rounding Luis Carlos Jung [facility] 08-22-2022 15:14-0500 Mean blood pressure 86 mm[Hg] Luis Carlos Jung [facility] 08-22-2022 15:14-0500 Respiratory rate 18 /min Luis Carlos Jung [facility] 08-22-2022 15:14-0500 Systolic blood pressure 115 mm[Hg] Luis Carlos Jung [facility] 08-18-2022 12:28-0400 Hourly Rounding Luis Carlos Jung [facility] Comment on above: Result Comment: pt verbalizes understand ing of discharge instructions. pt states she has an appointment sunday with dr jung. pt ambulated out of unit 08-18-2022 10:28-0400 Hourly Rounding Luis Carlos Jung [facility] Comment on above: Result Comment: pt c/o left lower abd pa in. states it is intermittent and sharp. encouraged pt to get up and empty bladder. pt states pain is still 7/10. dr jung on unit & at bedside 08-18-2022 09:09-0400 Hourly Rounding Luis Carlos Jung [facility] Comment on above: Result Comment: pt sitting up in bed wit h breakfast tray, visitor at bedside 08-18-2022 07:15-0400 Blood Pressure Location Luis Carlos Jung [facility] 08-18-2022 07:15-0400 Diastolic blood pressure 56 mm[Hg] Luis Carlos Montesinosten [facility] 08-18-2022 07:15-0400 Heart rate 69 /min Luis Carlos Montesinosten [facility] 08-18-2022 07:15-0400 Mean blood pressure 74 mm[Hg] Luis Carlos Montesinosten [facility] 08-18-2022 07:15-0400 Respiratory rate 16 /min Luis Carlos Jung [facility] 08-18-2022 07:15-0400 Systolic blood pressure 111 mm[Hg] Luis Carlos Montesinosten [facility] 08-18-2022 05:58-0400 Blood Pressure Location Luis Carlos Jung [facility] 08-18-2022 05:58-0400 Diastolic blood pressure 59 mm[Hg] Luis Carlos Montesinosten [facility] 08-18-2022 05:58-0400 Heart rate 67 /min Luis Carlos Jung [facility] 08-18-2022 05:58-0400 Mean blood pressure 77 mm[Hg] Luis Carlos Montesinosten [facility] 08-18-2022 05:58-0400 Respiratory rate 16 /min Luis Carlos Jung [facility] 08-18-2022 05:58-0400 Systolic blood pressure 113 mm[Hg] Luis Carlos Montesinosten [facility] 08-18-2022 04:06-0400 Blood Pressure Location Luis Carlos Jung [facility] 08-18-2022 04:06-0400 Body temperature 98.06 [degF] Luis Carlos Jung [facility] 08-18-2022 04:06-0400 Diastolic blood pressure 65 mm[Hg] Luis Carlos Jung [facility] 08-18-2022 04:06-0400 Heart rate 70 /min Luis Carlos Jung [facility] 08-18-2022 04:06-0400 Mean blood pressure 79 mm[Hg] Luis Carlos Jung [facility] 08-18-2022 04:06-0400 Respiratory rate 16 /min Luis Carlos Jung [facility] 08-18-2022 04:06-0400 Systolic blood pressure 107 mm[Hg] Luis Carlos Jung [facility] 08-13-2022 20:04-0400 Hourly Rounding Luis Carlos Jung [facility] Comment on above: Result Comment: Patient discharged off u nit. Discharge instructions were reviewed. Pt walks off unit without any notable signs or symtpoms of distress. 08-13-2022 19:45-0400 Hourly Rounding Luis Carlos Jung [facility] 08-13-2022 19:45-0400 Hourly Rounding Luis Carlos Jung [facility] Comment on above: Result Comment: Patient sitting in bed. BPP results reviewed with patient. Pt denied any additional questions. Call light within reach. 08-13-2022 18:12-0400 Heart rate 88 /min Luis Carlos Jung [facility] 08-13-2022 18:12-0400 Nursing Progress Note Reason Other: Pt updated on orders received from . jose understanding Luis Carlos Jung [facility] 08-13-2022 18:12-0400 SaO2% (BldA) [Mass fraction] 99 % Luis Carlos Jung [facility] 08-13-2022 17:33-0400 Body temperature 97.88 [degF] Luis Carlos Jung [facility] 08-13-2022 17:33-0400 Diastolic blood pressure 72 mm[Hg] Luis Carlos Jung [facility] 08-13-2022 17:33-0400 Mean blood pressure 88 mm[Hg] Luis Carlos Jung [facility] 08-13-2022 17:33-0400 Respiratory rate 18 /min Luis Carlos Jung [facility] 08-13-2022 17:33-0400 Systolic blood pressure 121 mm[Hg] Luis Carlos Jung [facility] 07-26-2022 10:22-0400 Hourly Rounding Luis Carlos Jung [facility] Comment on above: Result Comment: discharge instructions p rovided and pt signs discharge consent with RN witness. pt preparing for discharge, belly band placed on pt. RN offers wheelchair exit for discharge and pt declines and wants to walk down on own. 07-26-2022 10:22-0400 Promise to Return Luis Carlos Jung [facility] 07-26-2022 10:00-0400 Hourly Rounding Luis Carlos Jung [facility] 07-26-2022 10:00-0400 Promise to Return Luis Carlos Jung [facility] 07-26-2022 09:15-0400 Blood Pressure Location Luis Carlos Jung [facility] 07-26-2022 09:15-0400 Body temperature 97.7 [degF] Luis Carlos Jung [facility] 07-26-2022 09:15-0400 Diastolic blood pressure 62 mm[Hg] Luis Carlos Jung [facility] 07-26-2022 09:15-0400 Heart rate 70 /min Luis Carlos Jung [facility] 07-26-2022 09:15-0400 Hourly Rounding Luis Carlos Jung [facility] 07-26-2022 09:15-0400 Mean blood pressure 74 mm[Hg] Luis Carlos Jung [facility] 07-26-2022 09:15-0400 Respiratory rate 18 /min Luis Carlos Jung [facility] 07-26-2022 09:15-0400 Systolic blood pressure 97 mm[Hg] Luis Carlos Jung [facility] 07-26-2022 09:00-0400 Promise to Return Luis Carlos Jung [facility] 07-26-2022 08:14-0400 Body temperature 98.06 [degF] Luis Carlos Jung [facility] 07-26-2022 08:14-0400 Diastolic blood pressure 66 mm[Hg] Luis Carlos Jung [facility] 07-26-2022 08:14-0400 Heart rate 81 /min Luis Carlos Jung [facility] 07-26-2022 08:14-0400 Mean blood pressure 80 mm[Hg] Luis Carlos Jung [facility] 07-26-2022 08:14-0400 Respiratory rate 18 /min Luis Carlos Jung [facility] 07-26-2022 08:14-0400 Systolic blood pressure 109 mm[Hg] Luis Carlos Jung [facility] 07-17-2022 09:07-0400 Body temperature 97.88 [degF] Ko Dumas [facility] 07-17-2022 09:07-0400 Diastolic blood pressure 74 mm[Hg] Ko Dumas [facility] 07-17-2022 09:07-0400 Heart rate 85 /min Ko Dumas [facility] 07-17-2022 09:07-0400 Respiratory rate 16 /min Ko Dumas [facility] 07-17-2022 09:07-0400 SaO2% (BldA) [Mass fraction] 100 % Ko Dumas [facility] 07-17-2022 09:07-0400 Systolic blood pressure 117 mm[Hg] Ko Dumas [facility] 06-26-2022 21:38-0400 Blood Pressure Location Luis Carlos Jung [facility] 06-26-2022 21:38-0400 Diastolic blood pressure 61 mm[Hg] Luis Carlos Jung [facility] 06-26-2022 21:38-0400 Heart rate 83 /min Luis Carlos Jung [facility] 06-26-2022 21:38-0400 Hourly Rounding Luis Carlos Jung [facility] Comment on above: Result Comment: discharged ambulatory to pov 06-26-2022 21:38-0400 Mean blood pressure 75 mm[Hg] Luis Carlos Fabiana [facility] 06-26-2022 21:38-0400 Respiratory rate 16 /min Luis Carlos Jung [facility] 06-26-2022 21:38-0400 Systolic blood pressure 102 mm[Hg] Luis Carlos Jung [facility] 06-26-2022 21:15-0400 Blood Pressure Location Luis Carlos Jung [facility] 06-26-2022 21:15-0400 Diastolic blood pressure 64 mm[Hg] Luis Carlos Jung [facility] 06-26-2022 21:15-0400 Heart rate 74 /min Luis Carlos Jung [facility] 06-26-2022 21:15-0400 Hourly Rounding Luis Carlos Jung [facility] 06-26-2022 21:15-0400 Mean blood pressure 78 mm[Hg] Luis Carlos Jung [facility] 06-26-2022 21:15-0400 Respiratory rate 16 /min Luis Carlos Jung [facility] 06-26-2022 21:15-0400 Systolic blood pressure 106 mm[Hg] Luis Carlos Jung [facility] 06-26-2022 21:05-0400 Body temperature 97.88 [degF] Luis Carlos Jung [facility] 06-26-2022 21:05-0400 Respiratory rate 18 /min Luis Carlos Jung [facility] 06-26-2022 21:00-0400 Hourly Rounding Luis Carlos Jung [facility] Comment on above: Result Comment: ice water given 06-19-2022 01:30-0400 Hourly Rounding Luis Carlos Jung [facility] Comment on above: Result Comment: updated on plan of care after speaking to dr jung. verb understanding and all d/c instructions provided. denies further needs/concerns. ambulates off unit without any further questions. 06-19-2022 01:00-0400 Hourly Rounding Luis Carlos Jung [facility] Comment on above: Result Comment: rests in bed on phone. d enies any needs. denies any pain at this time or any pain or cramping since arrival. call light within reach 06-19-2022 00:15-0400 Hourly Rounding Luis Carlos Jung [facility] 06-18-2022 23:54-0400 Body temperature 97.88 [degF] Luis Carlos Jung [facility] 06-18-2022 23:54-0400 Diastolic blood pressure 65 mm[Hg] Luis Carlos Jung [facility] 06-18-2022 23:54-0400 Heart rate 76 /min Luis Carlos Jung [facility] 06-18-2022 23:54-0400 Mean blood pressure 81 mm[Hg] Luis Carlos Jung [facility] 06-18-2022 23:54-0400 Respiratory rate 18 /min Luis Carlos Jung [facility] 06-18-2022 23:54-0400 Systolic blood pressure 112 mm[Hg] Luis Carlos Jung [facility] 06-18-2022 23:45-0400 Blood Pressure Location Luis Carlos Jung [facility] 05-01-2022 17:45-0400 Hourly Rounding Luis Carlos Jung [facility] Comment on above: Result Comment: reviewed disch inst and meds to take states understanding 05-01-2022 17:30-0400 Hourly Rounding Luis Carlos Jung [facility] 05-01-2022 17:23-0400 Body temperature 98.06 [degF] Luis Carlos Jung [facility] 05-01-2022 17:23-0400 Diastolic blood pressure 57 mm[Hg] Luis Carlos Jung [facility] 05-01-2022 17:23-0400 Heart rate 83 /min Luis Carlos Jung [facility] 05-01-2022 17:23-0400 Mean blood pressure 71 mm[Hg] Luis Carlos Jung [facility] 05-01-2022 17:23-0400 Respiratory rate 16 /min Luis Carlos Jung [facility] 05-01-2022 17:23-0400 Systolic blood pressure 99 mm[Hg] Luis Carlos Jung [facility] 05-01-2022 17:15-0400 Blood Pressure Location Luis Carlos Jung [facility] 05-01-2022 17:15-0400 Hourly Rounding Luis Carlos Jung [facility] 04-02-2022 13:30-0400 Hourly Rounding Luis Carlos Jung [facility] Comment on above: Result Comment: pt given discharge instr uctions at this time to follow up with fabiana sunday or states understanding to call office tomorrow for appointment 04-02-2022 12:30-0400 Hourly Rounding Luis Carlos Jung [facility] Comment on above: Result Comment: pt returns to bed from r estroom at this time denies discomfort at this time 04-02-2022 11:30-0400 Hourly Rounding Luis Carlos Fabiana [facility] Comment on above: Result Comment: pt sitting in bed at thi s time denies needs or discomfort 04-02-2022 06:28-0400 Body temperature 99.68 [degF] Luis Carlos Jung [facility] 04-02-2022 06:28-0400 Diastolic blood pressure 68 mm[Hg] Luis Carlos Jung [facility] 04-02-2022 06:28-0400 Heart rate 89 /min Luis Carlos Jung [facility] 04-02-2022 06:28-0400 Heart rate 86 /min Luis Carlos Jung [facility] 04-02-2022 06:28-0400 Mean blood pressure 83 mm[Hg] Luis Carlos Jung [facility] 04-02-2022 06:28-0400 Respiratory rate 20 /min Luis Carlos Jung [facility] 04-02-2022 06:28-0400 SaO2% (BldA) [Mass fraction] 98 % Luis Carlos Jung [facility] 04-02-2022 06:28-0400 Systolic blood pressure 114 mm[Hg] Luis Carlos Jung [facility] 03-23-2022 21:08-0400 Hourly Rounding Luis Carlos Jung [facility] Comment on above: Result Comment: Patient ambulatory off u nit. No signs or symptoms of distress noted. 03-23-2022 20:35-0400 Hourly Rounding Luis Carlos Jung [facility] Comment on above: Result Comment: Patient updated on plan of care. Verbalizes understanding. Call light in reach. 03-23-2022 19:49-0400 Blood Pressure Location Luis Carlos Jung [facility] 03-23-2022 19:49-0400 Body temperature 98.78 [degF] Luis Carlos Jung [facility] 03-23-2022 19:49-0400 Diastolic blood pressure 66 mm[Hg] Luis Carlos Jung [facility] 03-23-2022 19:49-0400 Heart rate 69 /min Luis Carlos Jung [facility] 03-23-2022 19:49-0400 Hourly Rounding Luis Carlos Jung [facility] Comment on above: Result Comment: Patient arrives on unit. 03-23-2022 19:49-0400 Mean blood pressure 79 mm[Hg] Luis Carlos Jung [facility] 03-23-2022 19:49-0400 Respiratory rate 16 /min Luis Carlos Jung [facility] 03-23-2022 19:49-0400 Systolic blood pressure 106 mm[Hg] Luis Carlos Jung [facility] 10-14-2020 13:15-0500 Pulse (Heart Rate) 74 /min [facility] 10-14-2020 13:15-0500 Pulse Oximetry 98 % [facility] 10-14-2020 13:15-0500 Respiratory Rate 16 /min [facility] 10-14-2020 13:00-0500 BP Diastolic 74 mm[Hg] [facility] 10-14-2020 13:00-0500 BP Systolic 123 mm[Hg] [facility] 10-14-2020 10:13-0500 BMI (Body Mass Index) 34.33 kg/m2 [facility] 10-14-2020 10:13-0500 Body Temperature 97.81 [degF] [facility] 10-14-2020 10:13-0500 Body weight 90.72 kg [facility] 10-14-2020 10:13-0500 Height 162.6 cm [facility] 08-09-2020 20:33-0400 BP Diastolic 81 mm[Hg] [place], [place] 08-09-2020 20:33-0400 BP Systolic 122 mm[Hg[facility] 20:33-0400 Pulse (Heart Rate) 78 /min [facility] 08-09-2020 20:33-0400 Respiratory Rate 16 /min [facility] [place] 08-09-2020 19:03-0400 BMI (Body Mass Index) 39.48 kg/m2 [facility] [place] 08-09-2020 19:03-0400 Body Temperature 98.29 [degF] [facility] [place] 08-09-2020 19:03-0400 Body weight 104.33 [facility] [place] 08-09-2020 19:03-0400 Height 162.6 cm [facility] [place] 08-09-2020 19:03-0400 Pulse Oximetry 98 % [place] Encounters Encounter Date Encounter Type Care Provider Facility Start: 11-20-2023 End: 11-20-2023 ambulatory RASHAUN PERRY Not Available Start: 11-20-2023 End: 11-20-2023 Office outpatient visit 15 minutes Rashaun Perry DO Work Phone: [facility] Comment on above: Third trimester preg anh Start: 11-06-2023 End: 11-06-2023 ambulatory RASHAUN PERRY Not Available Start: 11-04-2023 End: 11-04-2023 OB Triage Rashaun R PERRY [facility] Start: 10-31-2023 End: 10-31-2023 ambulatory RASHAUN PERRY Not Available Start: 10-18-2023 End: 10-18-2023 ambulatory DODIE MILLER Not Available Start: 10-03-2023 End: 10-03-2023 ambulatory DODIE ANGELA Not Available Start: 09-12-2023 End: 09-12-2023 ambulatory RASHAUN PERRY Not Available Start: 08-23-2023 End: 08-23-2023 Lab Drop off ZORAN J ELEN [facility] Start: 08-23-2023 End: 08-24-2023 ambulatory GEM CARVER ZORAN CHAMBERLAINAULT Facility[facility] Start: 08-19-2023 End: 09-14-2023 Pre-admission assessment Julia Haywood [facility] Start: 08-18-2023 End: 08-18-2023 ambulatory DO Julia Haywood Facility[facility] Start: 08-18-2023 End: 08-18-2023 OB Triage Julia Haywood [facility] Start: 07-25-2023 End: 07-25-2023 Emergency department patient visit Kristian Guillermo Facility[facility] Start: 07-25-2023 End: 07-25-2023 Emergency department patient visit Kristian Guillermo [facility] Start: 06-28-2023 End: 06-29-2023 ambulatory Roverto Crow. Spasic Facility:[facility] Start: 06-28-2023 End: 06-28-2023 Patient encounter procedure Roverto V. Spasic [facility] Start: 06-14-2023 End: 06-14-2023 Emergency department patient visit Kristian Guillermo Facility:[facility] Start: 06-14-2023 End: 06-14-2023 Emergency department patient visit Kristian Guillermo [facility] Start: 06-12-2023 End: 06-13-2023 ambulatory Luis Carlos Jung Facility:[facility] Start: 06-12-2023 End: 06-12-2023 Patient encounter procedure Luis Carlos Jung [facility] Start: 05-21-2023 End: 05-22-2023 Emergency department patient visit DO Gopi Rodriguez Facility:[facility] Start: 05-21-2023 End: 05-21-2023 Emergency department patient visit Gopi Rodriguez [facility] Start: 04-30-2023 End: 05-01-2023 ambulatory Luis Carlos Jung Facility:[facility] Start: 04-30-2023 End: 04-30-2023 Lab Drop off Luis Carlos Jung [facility] Start: 04-30-2023 End: 05-01-2023 ambulatory Luis Carlos Jung Facility:[facility] Start: 04-30-2023 End: 04-30-2023 Patient encounter procedure Luis Carlos Byrd Fabiana [facility] Start: 04-26-2023 End: 04-26-2023 Emergency department patient visit Laura Sotelorob Facility:[facility] Start: 04-26-2023 End: 04-26-2023 Emergency department patient visit Laura Sotelorob [facility] Start: 01-31-2023 End: 01-31-2023 Emergency department patient visit Kristian Guillermo Facility:[facility] Start: 01-31-2023 End: 01-31-2023 Emergency department patient visit Kristian Guillermo [facility] Start: 09-24-2022 End: 09-27-2022 Evaluation and management of inpatient Luis Carlos Jung Facility:[facility] Start: 09-22-2022 End: 09-22-2022 ambulatory Luis Carlos Jung Facility:[facility] Start: 09-22-2022 End: 09-22-2022 OB Triage Luis Carlos Jung [facility] Start: 09-20-2022 End: 09-20-2022 ambulatory Luis Carlos Jung Facility:[facility] Start: 09-20-2022 End: 09-20-2022 OB Triage Luis Carlos Jung [facility] Start: 09-19-2022 End: 09-19-2022 ambulatory Jj MIKE Facility:[facility] Start: 09-19-2022 End: 09-19-2022 OB Triage Jj MIKE [facility] Start: 09-14-2022 End: 09-14-2022 ambulatory Luis Carlos Jung Facility[facility] Start: 09-14-2022 Emergency department patient visit DO Gopi Rodriguez Facility:[facility] Start: 09-14-2022 End: 09-14-2022 OB Triage Luis Carlos Jung [facility] Start: 09-12-2022 End: 09-12-2022 ambulatory Luis Carlos Jung Facility:[facility] Start: 09-12-2022 End: 09-12-2022 OB Triage Luis Carlos Jung [facility] Start: 09-08-2022 End: 09-08-2022 ambulatory Luis Carlos Jung Facility:[facility] Start: 09-08-2022 End: 09-08-2022 OB Triage Luis Carlos Jung [facility] Start: 09-06-2022 End: 12-06-2022 ambulatory Luis Carlos Jung Facility:[facility] Start: 09-05-2022 End: 09-06-2022 Emergency department patient visit DO Carrolemilee Cesartoña Facility:[facility] Start: 09-05-2022 End: 09-05-2022 Emergency department patient visit Gopi Rodriguez [facility] Start: 09-05-2022 End: 12-05-2022 Patient encounter procedure SELF REFERRAL [facility] Start: 09-04-2022 End: 09-05-2022 ambulatory Luis Carlos Montesinosten Facility:[facility] Start: 09-04-2022 End: 09-04-2022 Lab Drop off Luis Carlos Jung [facility] Start: 08-30-2022 End: 08-31-2022 ambulatory Luis Carlos Byrd Fabiana Facility[facility] Start: 08-30-2022 End: 08-31-2022 OB Triage Luis Carlos Jung [facility] Start: 08-22-2022 End: 08-22-2022 OB Triage Luis Carlos Jung [facility] Start: 08-18-2022 End: 08-18-2022 OB Triage Luis Carlos Jung [facility] Start: 08-13-2022 End: 08-13-2022 OB Triage Luis Carlos Jung [facility] Start: 07-26-2022 End: 07-26-2022 OB Triage Luis Carlos Jung [facility] Start: 07-17-2022 End: 07-17-2022 Emergency department patient visit Ko Dumas [facility] Start: 06-28-2022 End: 06-28-2022 Patient encounter procedure Luis Carlos Jung [facility] Start: 06-26-2022 End: 06-26-2022 OB Triage Luis Carlos Jung [facility] Start: 06-20-2022 End: 07-15-2022 Pre-admission assessment Luis Carlos Jung [facility] Start: 06-18-2022 End: 06-19-2022 OB Triage Luis Carlos Jung [facility] Start: 05-02-2022 End: 06-15-2022 Pre-admission assessment THANG MILLAN [facility] Start: 05-01-2022 End: 05-01-2022 OB Triage Luis Carlos Jung [facility] Start: 04-02-2022 End: 04-02-2022 OB Triage Luis Carlos Jung [facility] Start: 03-23-2022 End: 03-23-2022 OB Triage Luis Carlos Jung [facility] Start: 03-16-2022 End: 03-16-2022 Patient encounter procedure Luis Carlos Rochelle Jung [facility] Start: 02-15-2022 End: 02-15-2022 Lab Drop off Luis Carlos Rochelle Jung [facility] Start: 02-23-2021 End: 02-23-2021 Patient encounter procedure Martha Webb MD Work Phone: [facility] Start: 02-23-2021 Results Only Martha Webb MD Work Phone: Gastroenterology Start: 10-14-2020 End: 10-14-2020 Emergency department patient visit PHYSICIAN NO [facility] Start: 10-14-2020 End: 10-14-2020 Emergency department patient visit Regine Chow Work Phone: [facility] Emergency Department Comment on above: Vertigo (Primary Dx) Start: 08-09-2020 End: 08-09-2020 Emergency department patient visit [facility] Start: 08-09-2020 End: 08-09-2020 Emergency department patient visit Bakari Christopher [facility] Work Phone: [facility] ED Comment on above: Contusion of right k nee, initial encounter (Primary Dx); Contusion of multiple sites of right shoulder and upper arm, initial encounter Start: 07-23-2017 End: 07-23-2017 Emergency department patient visit NKECHI TORRES [facility] Guerra Procedures Date Procedure Procedure Detail [...] 05-12-2028 Tetanus vaccination Tetanus: Every 1 0yrs [facility] Start: 04-30-2028 Screening for malign ant neoplasm of cervix [facility] Start: 01-22-2024 End: 01-22-2024 Patient encounter procedure 01/22/2024 8:40 AM EDT Consult [facility] [address] [place] [id number] Rashaun Amador, DO [address] [place], [place] [id number] [facility] Start: 11-27-2023 End: 11-27-2023 Patient encounter procedure 11/27/2023 8:30 AM EST Routine [facility] [address] [place] [id number] Rashaun Amador, DO [address] [place] [address] [facility] Start: 11-21-2023 End: 11-21-2023 Professional / ancillary services management 11/21/2023 8:30 AM EST Ancillary Procedure [facility] [address] [place], [place] [address] [id number] [facility] Start: 06-15-2021 Influenza vaccination INFLUENZ A (Season Ended) [facility] Start: 06-15-2020 Influenza vaccination Flu vaccine (# 1) [place], [place] Start: 2014 PAP TESTING PAP TESTING [facility] Start: 2014 Screening for malign ant neoplasm of cervix Cervical cancer screen [place], [place] Start: 2012 DTaP/Tdap/Td vaccine (1 - Tdap) DTaP/Tdap/Td vaccine (1 - Tdap) [place] Start: 2012 Urine microalbumin profile DTAP,TDAP,TD (1 - Tdap) [facility] Start: 2011 Hepatitis C antibody , confirmatory test Hepatitis C Screening [facility] Start: 2011 HEPATITIS C SCREENING HEPATITIS C [facility] Start: 2011 HIV SCREENING HIV SCREENING [facility] Start: 2008 HIV screening Verena Valdes [place], [place] Start: 2005 Adolescent depressio n screening assessment [facility] Start: 2004 HPV vaccine (1 - 2-d ose series) HPV vaccine (1 - 2-dose series) [place] Start: 1996 History and physical examination, annual for health maintenance Wellness Visit [facility] Start: 1994 Varicella vaccine (1 of 2 - 2-dose childhood series) Varicella vaccine (1 of 2 - 2-dose childhood series) [place] Start: 1993 Screening for malign ant neoplasm of cervix Pap Smear [facility] PT ED PATIENT INFORMATION PT ED PATIENT INFORMATION Other 02/23/2021 [facility] Immunizations Immunization Date Immunization Notes Care Provider Lennox ramirez 08-18-2023 influenza, seasonal, injectable Julia Nathaiawira [facility] 09-25-2022 influenza, seasonal, injectable SELF REFERRAL [facility] Comment on above: Early/Late Reason: E isaac/Late Reason: Nursing Judgment 01-28-2021 COVID-19, mRNA, LNP- S, PF, 30 mcg/0.3 mL dose; Translations: [Pfizer-BioNTech COVID-19 Vaccine] Luis Carlos Jung [facility] Comment on above: Reason for Medicatio n: Prophylaxis Reason for Medicatio n: Prophylaxis 12-31-2020 COVID-19, mRNA, LNP- S, PF, 30 mcg/0.3 mL dose; Translations: [Pfizer-BioNTech COVID-19 Vaccine] Luis Carlos Jung [facility] Comment on above: Reason for Medicatio n: Prophylaxis Reason for Medicatio n: Prophylaxis 05-12-2018 tetanus toxoid, reduced diphtheria toxoid, and acellular pertussis vaccine, adsorbed; Translations: [Adacel (Tdap)] Luis Carlos Jung [facility] Payers Date Payer Category Payer Medicaid [employer] [employer] [id number] 2022-Present [address] [place] [address] [id number] 2019 Unknown [id number] 2019 Unknown [id number] [id number] [id number] 1993 Unknown [id number] 2.16.840.1.909612.3.579.2.173 1993 Unknown [id number] 2.16.840.1.381132.3.579.2.903 1993 Unknown [id number] 2.16.840.1.569550.3.579.2.727 1993 Unknown [id number] 2.16.840.1.629365.3.579.2.727 1993 Unknown [id number] 2.16.840.1.297079.3.579.2.727 1993 Unknown [id number] 2.16.840.1.419635.3.579.2.727 1993 Unknown [id number] 2.16.840.1.864863.3.579.2.727 1993 Unknown [id number] 2.16.840.1.285053.3.579.2.727 1993 Unknown [id number] 2.16.840.1.391707.3.579.2.727 1993 Unknown [id number] 2.16.840.1.071422.3.579.2.727 1993 Unknown [id number] 2.16.840.1.422636.3.579.2.727 1993 Unknown [id number] 2.16.840.1.597645.3.579.2.727 1994 Unknown [id number] 2.16.840.1.082059.3.579.2.72 1993 Unknown [id number] 2.16.840.1.771428.3.579.2. 1993 Unknown [id number] 2.16.840.1.474932.3.579.2. 1993 Unknown [id number] 2.16.840.1.640686.3.579.2. 1993 Unknown [id number] 2.16.840.1.475717.3.579.2. 1993 Unknown [id number] 2.16.840.1.668428.3.579.2 1993 Unknown [id number] 2.16.840.1.502710.3.579.2. 1993 Unknown [id number] 2.16.840.1.266136.3.579.2. 1993 Unknown [id number] 2.16.840.1.905851.3.579.2 1993 Unknown [id number] 2.16.840.1.276656.3.579.2. 1993 Unknown [id number] 2.16.840.1.434701.3.579.2. 1993 Unknown [id number] 2.16.840.1.539500.3.579.2. 1993 Unknown [id number] 2.16.840.1.332087.3.579.2.72 1993 Unknown [id number] 2.16.840.1.217038.3.579.2. 1993 Unknown [id number] 2.16.840.1.357721.3.579.2.1259 1993 Unknown [id number] 2.16.840.1.628356.3.579.2.1259 1993 Unknown [id number] 2.16.840.1.539004.3.579.2.1259 1993 Unknown [id number] 2.16.840.1.326211.3.579.2.1259 1993 Unknown [id number] 2.16.840.1.198108.3.579.2.1259 1993 Unknown [id number] 2.16.840.1.175731.3.579.2.1259 1993 Unknown [id number] 2.16.840.1.266834.3.579.2.1259 Social History Date Type Detail Facility Start: 08-09-2020 End: 10-14-2020 Tobacco smoking status NHIS Current every day smoker [place] Start: 08-09-2020 End: 10-14-2020 Tobacco use and exposure Never used [place] Start: 10-14-2020 Alcohol intake Ex-drinker (finding) [facility] Start: 1993 Sex Assigned At Not on file M [place] Exposure to SARS-CoV -2 (event) Not sure [place] Start: 08-09-2020 Cigarettes smoked current (pack per day) - Reported [place] Start: 08-09-2020 Alcohol intake Lifetime non-d val (finding) [place] Start: 08-09-2020 History SDOH Alcohol Frequency 1 [place] Start: 07-06-2021 End: 08-18-2022 Tobacco smoking status Light tobacco smoker (finding) [facility] Sex Assigned At Female [facility] Tobacco [facility] Comment on above: current current denies Start: 06-28-2023 Tobacco smoking status Ex-smoker (fi nding) [facility] Comment on above: current Tobacco smoking status Never [facility] Comment on above: current Tobacco smoking status No Smokin g Status Entered [facility] Start: 04-02-2023 [facility] Start: 1995 Sex Assigned At Female [facility] Start: 07-03-2023 Gender identity Identifies as female gender (finding) [facility] Start: 07-03-2023 Sexual orientation Heterosexual (fin ding) [facility] Healthcare Goals Date Patient Goal Desired Activity /State Personal health goal Functional Status Date Assessment Result Facility 11-04-2023 Functional Status N/A [facility] 08-18-2023 Functional Status N/A [facility] 07-25-2023 Functional Status N/A [facility] 06-28-2023 Functional Status N/A [facility] 06-14-2023 Functional Status N/A [facility] 05-21-2023 Functional Status N/A [facility] 04-26-2023 Functional Status N/A [facility] 01-31-2023 Functional Status N/A [facility] 09-22-2022 Functional Status N/A [facility] 09-20-2022 Functional Status N/A [facility] 09-19-2022 Functional Status N/A [facility] 09-14-2022 Functional Status N/A [facility] 09-12-2022 Functional Status N/A [facility] 09-08-2022 Functional Status N/A [facility] 09-05-2022 Functional Status Yes [facility] 08-30-2022 Functional Status N/A [facility] 08-22-2022 Functional Status N/A [facility] 08-18-2022 Functional Status N/A [facility] 08-13-2022 Functional Status N/A [facility] 07-26-2022 Functional Status N/A [facility] 07-17-2022 Functional Status N/A [facility] 06-26-2022 Functional Status N/A [facility] 06-18-2022 Functional Status N/A [facility] 05-01-2022 Functional Status N/A [facility] 04-02-2022 Functional Status N/A [facility] Clinical Notes 03-10-2021 to 11-20-2023 Althea SuggsJAQUELINE [...] nursing note reviewed. Exam conducted with a heel brusher present. Vitals: There is no height or [...] Rashaun Amador DO documented in this encounter [facility] 11-04-2023 Evaluation + Plan note Diagnostic Tests PendingUrine Culture 11/04/23 [facility] 11-04-2023 Hospital Discharge instructions Follow [facility] Care 11/04/2023 07:55:34 With:Rashaun AMADOR Address: [address] [place] [address] Business (1) When:11/06/2023 Comments:Call for any problems.Appointment has already been scheduledCall physician if symptoms worsenPlease call if you need to rescheduleReturn for contractions closer, longer, harderReturn for decreased movementReturn if ruptured membranes or vaginal bleeding [facility] 08-23-2023 Evaluation + Plan note Diagnostic Tests PendingT3 Total 08/23/23 [facility] 08-18-2023 Note The following Any garnett Education Materials have been given to the patient: EducationMaterial [facility] 08-18-2023 Hospital Discharge instructions Patient Education 08/18/2023 08:14:46 Second Trimester of , Ggpz-vv-Pxvi Second Trimester of The second trimester of [...] Follow these instructions at home: Medicines Take befd-hxx-wstdhtx and prescription medicines only as told by [...] provider. Document Revised: 03/09/2021 Document Reviewed: 01/13/2021 [employer] Patient Education 2022 ADMETA. [facility] 07-25-2023 Evaluation + Plan note Extrac [...] Pending * Urine Culture 07/25/23 [facility]10-11-2023 Hospital Discharge instructions Patient Education 07/25/2023 [...] to keep your urine pale yellow. Take xofd-yml-iqolcfj and prescription medicines only as told by [...] provider. Document Revised: 06/14/2021 Document Reviewed: 06/14/2021 [employer] Patient Education 2022 ADMETA. [facility] 07/25/2023 08:14:26 With:Luis Carlos Jung Address: [address] [place] [address] [facility] (1) When:07/28/2023 09:56:27 [facility]09-14-2023 Evaluation + Plan note Diagnostic Tests Pending * Urine Culture 06/28/23 [facility]09-14-2023 Hospital Discharge instructions Patient Education 06/28/2023 11:39:14 Urinary Tract Infection, Adult, Npek-dt-Gnlu Urinary Tract Infection, Adult A urinary tract [...] Follow these instructions at home: Medicines Take wejg-tbw-lfcwxjl and prescription medicines only as told by [...] provider. Document Revised: 05/13/2021 Document Reviewed: 05/13/2021 [employer] Patient Education 2022 ADMETA. 06/28/2023 11:39:14 Urinary Tract Infection, Adult, Pnzf-xu-Ibnm Urinary Tract Infection, Adult A urinary tract [...] Follow these instructions at home: Medicines Take fqkd-igu-ueasnyo and prescription medicines only as told by [...] provider. Document Revised: 05/13/2021 Document Reviewed: 05/13/2021 [employer] Patient Education 2022 ADMETA. [facility] Up Care 06/28/2023 10:22:58 With:Fabiana MARION, Luis Carlos Byrd, SAMPSON Address: [address] [place] [address] [place] [id number]- When: Unknown [facility] 08-31-2023 Evaluation + Plan noteExtracted from: Title:ED Note Author:Jos Ugalde PA-C te:06/14/23 1. Abdominal pain (R10.9: Un specified abdominal pain) Orders: ABO/Rh Automated Diff Basic Metabolic Panel Beta hCG Quantitative CBC w/ Auto Diff eGFR Extra Blue Tube Extra SST Tube Hepatic Function Panel Lipase Level UA With Cult Reflex US 1st Trimester [facility]08-08-2023 Hospital Discharge instructions Patient Education 05/21/2023 23:23:44 Nonspecific Chest Pain, Adult, Rupr-rk-Drdp Nonspecific Chest Pain Chest pain can be [...] Follow these instructions at home: Medicines Take sphx-rrz-eiawuch and prescription medicines only as told by [...] ?Eating a heart-healthy diet. A diet and nutritionist public health (dietitian) can help you to learn healthy [...] provider. Document Revised: 12/15/2021 Document Reviewed: 12/15/2021 [employer] Patient Education 2022 ADMETA. 05/21/2023 23:23:44 Nausea and Vomiting, Adult, Qtiz-yk-Nkwz Nausea and Vomiting, Adult Nausea is feeling [...] fruit juice). ?Low-calorie sports drinks. Eat bland, enmr-yp-nxrhqo foods in small amounts as you are able, such as: ?Bananas. ?Applesauce. ?Rice. ?Low-fat (lean) meats. ?Apollo. ?Crackers. Avoid drinking fluids that have a lot of sugar or caffeine in them. This includes energy drinks, sports drinks, and soda. Avoid alcohol. Avoid spicy or fatty foods. General instructions Take wrlo-tnp-hcejzis and prescription medicines only as told by your doctor. Drink enough fluid to keep your pee (urine) pale yellow. Wash your hands often with soap and water for at least 20 seconds. If you cannot use soap and water, use hand plant health care technician. Make sure that everyone in your [...] your doctor about eating and drinking. Take xiso-zvn-mncfwhx and prescription medicines only as told by your doctor. Contact your doctor if your symptoms get worse or you have new symptoms. Keep all follow-up visits. This information is not intended to replace advice given to you by your health care provider. Make sure you discuss any questions you have with your health care provider. Document Revised: 04/07/2022 Document Reviewed: 04/07/2022 [employer] Patient Education 2022 ADMETA. 05/21/2023 23:23:44 Abdominal Pain During , Ehid-lr-Msiz Abdominal Pain During Belly (abdominal) pain is [...] keep your pee (urine) pale yellow. Take lbxq-erh-ermcmat and prescription medicines only as told by [...] provider. Document Revised: 06/14/2021 Document Reviewed: 06/14/2021 [employer] Patient Education 2022 ADMETA. Follow Up Care 05/21/2023 20:38:52 With:Luis Carlos Jung Address: [address] [facility] [place] [address]- Business (1) When:05/24/2023 Comments:Take the Pepcid once daily until you have completed the course. You can use the Zofran every 6 hours as needed for nausea and vomiting. Please follow-up with your primary care doctor next 2 to 3 days. Please return to the ED for any new or worsening symptoms. [facility]08-07-2023 Evaluation + Plan noteExtracted from: Title:ED [...] day(s), # 15 cap(s), Refills(s) 0, Pharmacy: [facility], 162.6, cm, 05/21/23 20:50:00 EDT, Height/Length Dosing, 75.3, kg, 05/21/23 20:50:00 EDT, Weight Dosing famotidine, 20 mg = 2 mL, Soln-IV, IV Push, Once, Stop date 05/21/23 21:00:00 EDT, STAT, Start date 05/21/23 21:00:00 EDT, 05/21/23 21:00:00 EDT famotidine, 20 mg = 1 tab(s), Oral, Daily, # 14 tab(s), Refills(s) 0, Pharmacy: [facility], 162.6, cm, 05/21/23 20:50:00 EDT, Height/Length Dosing, 75.3, kg, 05/21/23 20:50:00 EDT, Weight Dosing ondansetron, 4 mg = 2 mL, Injection, IV Push, Once, Stop date 05/21/23 21:00:00 EDT, STAT, Start date 05/21/23 21:00:00 EDT, 05/21/23 21:00:00 EDT ondansetron, 4 mg = 1 tab(s), Oral, q8hr, # 12 tab(s), Refills(s) 0, Pharmacy: [facility], 162.6, cm, 05/21/23 20:50:00 [...] Cult Reflex US 1st Trimester [facility]07-17-2023 Evaluation + Plan note Diagnostic Tests Pending * PAP [id number] 04/30/23 * Urine Culture 04/30/23 [facility]07-17-2023 Evaluation + Plan note Diagnostic Tests Pending * RPR with Conf Rfx 04/30/23 * HIV Screen 4th Generation wRfx 04/30/23 * Rubella Antibody IgG 04/30/23 * Hepatitis B Surface Antigen 04/30/23 [facility]07-13-2023 Evaluation + Plan noteExtracted from: Title:ED Note Author:Jos Ugalde PA-C te:04/26/23 Abdominal pain (R10.9: Unspe cified abdominal pain) (Z34.90: Encounter for supervision of normal , unspecified, unspecified trimester) Orders: Beta hCG Quantitative Extra Lav Tube Extra SST Tube US 1st Trimester US Transvaginal [facility]07-13-2023 Hospital Discharge instructions Patient Education 04/26/2023 [...] to keep your urine pale yellow. Take yljf-zug-enjbped and prescription medicines only as told by [...] provider. Document Revised: 06/14/2021 Document Reviewed: 06/14/2021 [employer] Patient Education 2022 ADMETA. Follow Up Care 04/26/2023 08:52:22 With:Luis Carlos Jung Address: [address], [address] [place] [address]- Business (1) When:04/29/2023 10:58:02 [facility]04-19-2023 Evaluation + Plan noteExtracted from: Title:ED [...] Oxygen Therapy PT & PTT [facility]04-19-2023 Hospital Discharge instructions Patient Education 01/31/2023 [...] Follow these instructions at home: Medicines Take szhl-eds-iyariey and prescription medicines only as told by your health care provider. Ask your health care provider if the medicine prescribed to you: ?Requires you to avoid driving or using heavy machinery. ?Can cause constipation. You may need to take these actions to prevent or treat constipation: ?Drink enough fluid to keep your urine pale yellow. ?Take wlth-tad-wsgzowt or prescription medicines. ?Eat foods that are [...] provider. Document Revised: 01/23/2020 Document Reviewed: 11/13/2019 [employer] Patient Education 2022 ADMETA. Follow Up Care 01/31/2023 09:42:02 With:THANG MILLAN Address: [address] [place], [place] [id number] [facility] (1) When:02/03/2023 11:57:07 Comments:Call the office [...] any new or worsening symptoms. [facility]12[facility]16-2022 [facility]Result Comment: Electronically Signed By: Luis Carlos Jung MD\.br\Date and Time Signed: 09/29/22 09:25 [id number] [facility] Comment on above:Result Comment: Electronically Signed By: Luis Carlos Jung MD\.br\Date and Time Signed: 09/29/22 09:25 [id number] NoteThe following Patient Education Materials have been given to the patient: [facility]12-09-2022 NoteThe following Patient Education Materials have been given to the patient: [facility]12-09-2022 Hospital Discharge instructions Follow Up Care 09/22/2022 15:11:14 With:Luis Carlos Jung Address: [address] [place] [id number] Business (1) When:09/24/2022 20:30:00 Comments:Appointment has already been scheduledCall for any problems.Call for fever > 100.5 FCall for severe abdominal painCall physician for heavy vaginal bleedingCall physician if symptoms worsenReturn for contractions closer, longer, harderReturn for decreased movementReturn if ruptured membranes or vaginal bleedingCall at 7:30 pm Sunday to confirm induction at 8:30 [facility]12-07-2022 NoteThe following Patient Education Materials have been given to the patient: [facility]12-06-2022 NoteThe following Patient Education Materials have been given to the patient: [facility]12-06-2022 Hospital Discharge instructions Follow Up Care 09/19/2022 01:24:08 With:Lui sCarlos Jung Address: [address] [place] [id number] Business (1) When:09/20/2022 Comments:Appointment has already been scheduledCall Dr if fever>100.5 F, heavy bleedingCall for any problems.Call for severe abdominal painCall physician for heavy vaginal bleedingCall physician if symptoms worsenReturn for contractions closer, longer, harderPlease call if you need to rescheduleReturn for decreased movementReturn if ruptured membranes or vaginal bleeding [facility]12-01-2022 NoteThe following Patient Education Materials have been given to the patient: [facility]MateA[facility]12-01-2022 Hospital Discharge instructions Patient Education 09/14/2022 11:56:10 Sinus Headache, Punk-fs-Iwsb Sinus Headache A sinus headache happens when [...] on the bottle or box. Medicines Take fgmc-sxy-riejojo and prescription medicines only as told by [...] face, forehead, ears, or upper teeth. Take mbgn-vpn-qjjvfed and prescription medicines only as told by your doctor. If told, apply a warm, moist washcloth to your face. This can help to lessen pain. This information is not intended to replace advice given to you by your health care provider. Make sure you discuss any questions you have with your health care provider. Document Released: 01/31/2012 Document Revised: 09/13/2018 Document Reviewed: 07/12/2018 [employer] Patient Education 2020 Maana Follow Up Care 09/14/2022 09:13:06 With:Luis Carlos Jung Address: [address], [facility] [address] [place] [address] [facility] (1) When:09/20/2022 Comments:Return if ruptured membranes or vaginal bleedingReturn for decreased movementReturn for contractions closer, longer, harderCall physician if symptoms worsenCall for severe abdominal painCall for fever > 100.5 F Drink 8-10 glasses of water/day Use SUDAFED, TYLENOL AND BENADRYL as previouslydirected by Dr Fabiana Longoria [facility]11-29-2022 NoteThe following Patient Education Materials have been given to the patient: [facility] Hospital Discharge instructions Patient Education 09/12/2022 20:39:28 Third Trimester of , Cwna-qm-Loou Third Trimester of The third trimester is from week 28 through week 40 (months 7 through 9). This trimester is when your unborn baby (fetus) is growing very fast. At the end of the ninth month, the unborn baby is about20 inches in length. It weighs about 6 10 pounds. Follow these instructions at home: Medicines Take jcee-wkn-lklfsor and prescription medicines only as told by [...] 12/26/2010 Document Revised: 01/22/2020 Document Reviewed: 11/06/2017 [employer] Patient Education 2020 Else[employer] Inc. Follow Up Care 09/12/2022 19:44:10 With:Luis Carlos Jung Address: [facility] [address] [address] [facility] (1) When:09/20/2022 Comments:Appointment has already been scheduledCall Dr if fever>100.5 F, heavy bleedingCall for any problems.Call for severe abdominal painCall physician for heavy vaginal bleedingCall physician if symptoms worsenPlease call if you need to rescheduleReturn for contractions closer, longer, harderReturn for decreased movementReturn if ruptured membranes or vaginal bleeding [facility]11-25-2022 NoteThe following Patient Education Materials have been given to the patient: [facility] Hospital Discharge instructions Follow Up Care 09/08/2022 08:14:23 With:Luis Carlos Fabiana Address: [facility] [address] [address] [employer] (1) When:09/11/2022 Comments:Return for contractions closer, longer, harderReturn for decreased movementReturn if rupturedmembranes or vaginal bleeding [facility]11-23-2022 Hospital Discharge instructions Patient Education 09/05/2022 [...] the coronavirus come from? In September 2019, [place] told the World Health Organization (WHO) of several cases of lung disease (human respiratory illness). These cases were linked to an open seafood and livestock market in the city of [place]. The link to the seafood and [...] and virus naming World Health Organization (WHO): www.who.int/emergencies/diseases/izsfa-flbzbfqigyx-5655/technical-g uidance/icvarx-sza-shcgxsrvvhj-disease-(covid-2019)-yhg-upa-ovarc-nnao-nhsjit-we Who is at risk for complications from [...] relieve his or her symptoms by using wauk-uuq-upfzixe medicines that treat sneezing, coughing, and runny [...] water are not available, use alcohol-based hand plant health care technician. Avoid touching your face, mouth, nose, [...] Prevention (CDC): www.cdc.gov/coronavirus/2019-ncov/travelers/index.html World Health Organization (WHO): www.who.int/emergencies/diseases/fddzk-aotfrghvnto-4409/travel-advice Know the risks and take action to [...] water are not available, use alcohol-based hand plant health care technician. Cough or sneeze into a tissue, [...] in hot, soapy water or use a cut off saw set up operator. Air-dry your dishes. Wash laundry in [...] Health Organization (WHO) Information and news updates: www.who.int/emergencies/diseases/unmke-rowlxglyfqu-1864 Coronavirus health topic: www.who.int/health-topics/coronavirus Questions and answers on COVID-19: www.who.int/news-room/q-a-detail/d-d-oxmvxsnozhosi Global tracker: who.[employer]Cloud [place] [employer] (AAP) Information for families: www.healthychildren.org/German/health-issues/conditions/chest-lungs/Pages /5687-Pxdzw-Oxmoaecqtwl.aspx The coronavirus situation is changing rapidly. Check [...] 01/27/2020 Document Revised: 01/27/2020 Document Reviewed: 01/27/2020 [employer] Patient Education 2020 [employer]. 09/05/2022 22:13:40 COVID-19 COVID-19 COVID-19 is [...] to fight infection (immunocompromised). Live in a fpc or long-term care facility. Have a long-term [...] managed at home with rest, fluids, and pgym-qze-gucvspk medicines. Treatment for a serious infection usually [...] are safe for you. General instructions Take yznk-bqb-fybmkuk and prescription medicines only as told by [...] water are not available, usean alcohol-based hand plant health care technician. ?Avoid touching your mouth, face, eyes, [...] water are not available, use alcohol-based hand plant health care technician. Stay away from other members of [...] have a weak immunity, live in a fpc, or have chronic disease. There is no [...] 11/06/2019 Document Revised: 02/26/2020 Document Reviewed: 11/06/2019 [employer] Patient Education 2020 [employer] Follow Up Care 09/05/2022 20:08:29 With:Luis Carlos Jung Address: [facility] [place] [phone] Business (1) When:09/08/2022 21:42:10 Comments:Use the albuterol inhaler 2 puffs every 4 hours for the next 2 to 3 days, you can use the Zofran every 6 hours as needed for nausea and vomiting. Please follow-up with your primary care doctor in thenext 2 to 3 days. Please return to the ED for any new or worsening symptoms. With:THANG MILLAN Address: [address] [place], [place] [phone] Business (1) When:09/08/2022 21:42:06 [facility]11-22-2022 Evaluation + Plan noteExtracted from: Title:ED [...] Nausea/Vomiting, # 12 tab(s), Refills(s) 0, Pharmacy: [facility], 163, cm, 09/05/22 20:14:00 [...] Therapy PT & PTT Rapid COVID Antigen ([facility]) Saline Lock Insert Troponin 0 Hr. XR Chest Single View Future Appointments Appointment Date:09/06/2022 07:00:00 AM Scheduled [facility]: [facility] Type:Outpatient COVID Testing [facility]11-21-2022 Evaluation + Plan note Diagnostic Tests Pending * Group B Streptococcus colonization by PCR 09/04/22 [facility]11-17-2022 NoteThe following Patient Education Materials have been given to the patient: [facility] Hospital Discharge instructions Patient Education 08/31/2022 00:56:47 Third Trimester of , Hzav-yn-Tsud Third Trimester of The third trimester is from week 28 through week 40 (months 7 through 9). This trimester is when your unborn baby (fetus) is growing very fast. At the end of the ninth month, the unborn baby is about20 inches in length. It weighs about 6 10 pounds. Follow these instructions at home: Medicines Take pxfc-hbc-lkzftcr and prescription medicines only as told by [...] 12/26/2010 Document Revised: 01/22/2020 Document Reviewed: 11/06/2017 [employer] Patient Education 2020 ADMETA. Follow Up Care 08/30/2022 21:31:53 With:Luis Carlos Jung Address: [address] [address] [facility] (1) When:09/04/2022 Comments:Call for any problems.Call for severe abdominal painCall physician for heavy vaginal bleedingReturnfor contractions closer, longer, harderReturn for decreased movementReturn if ruptured membranes or vaginal bleeding [facility]11-08-2022 Hospital Discharge instructions Follow Up Care 08/22/2022 14:58:59 With:Dr. 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 [facility]11-04-2022 Evaluation + Plan note Diagnostic Tests Pending * Urine Culture 08/18/22 [facility]11-04-2022 Hospital Discharge instructions Follow Up Care 08/18/2022 03:47:49 With:Luis Carlos Jung Address: [address], [facility] [address] [place] [address] Business (1) When:08/21/2022 08:45:00 Comments:Appointment has already been scheduled, please keep scheduled apptCall for any problems.Call physician if symptoms worsen [facility]10-30-2022 Hospital Discharge instructions Patient Education 08/13/2022 [...] 10/31/2007 Document Revised: 10/21/2019 Document Reviewed: 11/09/2016 [employer] Patient Education 2020 [employer] Inc. 08/13/2022 19:55:11 Monitoring Overview Monitoring Overview [...] 09/21/2003 Document Revised: 06/25/2018 Document Reviewed: 04/30/2017 [employer] Patient Education 2020 ADMETA. Follow Up Care 08/13/2022 17:29:42 With:Luis Carlos Jung Address: [address] [place] [address] [facility] (1) When:1 to 2 days Comments:Call for any problems.Return for contractions closer, longer, harderReturn for decreased movementReturn if ruptured membranes or vaginal bleeding [facility]10-13-2022 Hospital Discharge instructions Follow Up Care 07/27/2022 01:12:54 With:Dr. Jung [phone] Address:Unknown When:09/24/2022 20:30:00 Comments:Call for any problems.Return if ruptured membranes or vaginal bleedingReturn for decreased movementcontractions every 5 minutes lasting 45 seconds for an sunday night at 7:30 PM to assure bed availability for induction [facility]10-12-2022 Hospital Discharge instructions Patient Education 07/26/2022 [...] Follow these instructions at home: Medicines Take trib-hmy-lckqhtx and prescription medicines only as told by [...] as fried or sweet foods. ?Take an osza-mti-wdvvqie or prescription medicine for constipation. If you [...] 12/28/2009 Document Revised: 05/28/2019 Document Reviewed: 11/11/2018 [employer] Patient Education 2020 ADMETA. Follow Up Care 07/26/2022 07:56:25 With:Luis Carlos Jung Address: [address] [place], [place] [phone] [facility] (1) When:08/07/2022 07:45:00 [facility]10-03-2022 Evaluation + Plan noteExtracted from: Title:ED Note Author:Hi Carmona PA-C te:07/17/22 UTI (urinary tract infection ) (N39.0: Urinary tract infection, site not specified) Orders: cephalexin, 500 mg = 1 cap(s), Oral, q12hr, X 5 day(s), # 10 cap(s), Refills(s) 0, Pharmacy: [facility], 162.5, cm, 07/17/22 9:09:00 EDT, Height/Length Dosing, 80, kg, 07/17/22 9:09:00 EDT, Weight Dosing Patient Specific Meds, Each, Misc, Once, Stop date 07/17/22 9:10:34 EDT, Physician Stop, 07/17/22 9:10:34 EDT Influenza A&B Ag Rapid COVID Antigen ([facility]) UA With Cult Reflex [facility]10-03-2022 Hospital Discharge instructions Patient Education 07/17/2022 [...] 01/26/2012 Document Revised: 01/23/2020 Document Reviewed: 09/04/2019 [employer] Patient Education 2020 ADMETA. 07/17/2022 09:55:44 Urinary Tract Infection, Adult Urinary [...] Treatment for this condition includes: Antibiotic medicine. Lguf-bfu-devcpnm medicines to treat discomfort. Drinking enough water [...] Follow these instructions at home: Medicines Take spor-vmw-dtvtbrs and prescription medicines only as told by [...] 07/11/2006 Document Revised: 09/18/2019 Document Reviewed: 04/10/2019 [employer] Patient Education 2020 ADMETA. Follow Up Care 07/17/2022 09:04:38 With:Luis Carlos Jung Address: [address] [address] Business (1) When:07/20/2022 09:46:49 With:THANG MILLAN Address: [address] [place] [address] Business (1) When:07/20/2022 09:46:41 Comments:Follow-up with your primary care provider in 3 to 5 days. If symptoms worsen, do not improve, or new symptoms arise please report back to emergency department for further evaluation. [facility]09-14-2022 Evaluation + Plan note Diagnostic Tests Pending * RPR with Conf Rfx 06/28/22 [facility]09-12-2022 Hospital Discharge instructions Patient Education 06/26/2022 [...] 09/21/2003 Document Revised: 06/25/2018 Document Reviewed: 04/30/2017 [employer] Patient Education 2020 [employer] Inc. 06/26/2022 21:35:59 Form - Movement Counts [...] 10/31/2007 Document Revised: 10/21/2019 Document Reviewed: 11/09/2016 ElseEnviance Patient Education 2020 ADMETA. Follow Up Care 06/26/2022 20:41:33 With:Luis Carlos Jung Address: [facility] [address] [address] Business (1) When:07/03/2022 07:45:00 Comments:Call for any problems.Please call if you need to rescheduleReturn for decreased movement [facility]09-05-2022 Hospital Discharge instructions Follow Up Care 06/18/2022 23:33:38 With:Luis Carlos Jung Address: [facility] [address] [address] Business (1) When:5 to 7 days Comments:Appointment has already been scheduledCall for any problems.Call for fever > 100.5 FCall for severe abdominal painCall physician for heavy vaginal bleedingPlease call if you need to rescheduleReturn for contractions closer, longer, harderReturn for decreased movementReturn if ruptured membranes or vaginal bleeding [facility]07-18-2022 Hospital Discharge instructions Follow Up Care 05/01/2022 17:08:54 With:Luis Carlos Jung Address: [facility] [address] [address] Business (1) When:05/09/2022 Comments:Return if ruptured membranes or vaginal bleedingReturn for contractions closer, longer, harderCall physician if symptoms worsenCall physician for heavy vaginal bleedingCall for severe abdominal painCall for fever > 100.5 FCall for any problems. drink more fluids including gatorade, take milk of magnesia twice /day until yo u have bowel movements, benefiber daily [facility]06-19-2022 Evaluation + Plan note Diagnostic Tests Pending * Urine Culture 04/02/22 [facility]06-19-2022 Hospital Discharge instructions Patient Education 04/02/2022 10:22:48 Second Trimester of , Kels-zk-Loro Second Trimester of The second trimester is [...] Follow these instructions at home: Medicines Take degd-bqa-tvirnrk and prescription medicines only as told by [...] 12/26/2010 Document Revised: 01/23/2020 Document Reviewed: 11/06/2017 [employer] Patient Education 2020 ADMETA. 04/02/2022 10:22:48 Vaginal Bleeding During , Second [...] says that this is safe. Medicines Take ruax-ecn-yteczuj and prescription medicines only as told by [...] 07/11/2006 Document Revised: 01/20/2020 Document Reviewed: 01/03/2018 ElseEnviance Patient Education 2019 [employer] Inc. Follow Up Care 04/02/2022 06:00:26 With:Dr. Jung [phone] Address:Unknown When:2 to 3 days Comments:Call for any problems.Call physician if symptoms worsen [facility]06-09-2022 Hospital Discharge instructions Patient Education 03/23/2022 20:39:21 Second Trimester of , Ziev-pc-Redx Second Trimester of The second trimester is [...] Follow these instructions at home: Medicines Take jbzs-tks-jwpumuf and prescription medicines only as told by [...] 12/26/2010 Document Revised: 01/23/2020 Document Reviewed: 11/06/2017 [employer] Patient Education 2020 ADMETA. 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 Avoid heavy [...] grounds. You are around people who have Romanian measles, fifth disease, or chickenpox. You have [...] 03/19/2009 Document Revised: 01/22/2020 Document Reviewed: 10/09/2017 [employer] Patient Education 2020 [employer] Inc. 03/23/2022 20:39:21 Abdominal Pain During , Yrtt-xd-Wjoq Abdominal Pain During Belly (abdominal) pain is [...] keep your pee (urine) pale yellow. Take amyv-cmj-nhphkhi and prescription medicines only as told by [...] 09/19/2010 Document Revised: 01/19/2020 Document Reviewed: 01/03/2018 ElseEnviance Patient Education 2020 [employer]. Follow Up Care 03/23/2022 19:35:57 With:Luis Carlos Jung Address: [address] [address] Business (1) When:03/27/2022 10:00:00 Comments:Call for any problems. Call [facility] first, ask to speak directly to Dr. Jung before heading to hospital unless an emergency. Call for severe abdominal pain or worsening pain.Return if vaginal bleedingor ruptured membranes.Wear belly band as much as possible, especially as your belly grows in . [facility]05-04-2022 Evaluation + Plan note Diagnostic Tests Pending * RPR with Conf Rfx 02/15/22 * HIV Screen 4th Generation wRfx 02/15/22 * Rubella Antibody IgG 02/15/22 * Hepatitis B Surface Antigen 02/15/22 * Urine Culture 02/15/22 [facility]06-18-2021 NoteHNO ID: [id number] Author: Bert Negrete, DO Service: ? 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 [facility]06-10-2021 NoteHNO ID: [id number] Author: RT Oliva(R) Service: Nuclear Medicine Author Type: Almond Huller Type: Progress Notes Filed: 03/24/2021 9:39 AM [...] safety can be found using this link: [email or web address] SIGNATURE: Karen Vinson RT(R) PATIENT NAME: Susan Bro DATE: March 24, 2021 TIME: 9:38 AM PAGER/CONTACT #:[facility]05-27-2021 NoteHNO ID: [id number] Author: Martha Webb MD Service: ? Author Type: Physician Type: Progress Notes Filed: 03/10/2021 12:03 PM Note Text: This note was created using MVP Vaultriter. Subjective Susan Bro is a 25 year [...] biliary ductal dilatation is (more content not included)...[facility] Diagnosis Third trimester state, incidental documented in this encounter [facility] Narrative No data available for this section [facility] No data available for this section [facility] No data available for this section [facility] Summary Purpose Family History No Family [...] Documents on File Type Date Recorded 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 Trust the experts at [facility] to meet your healthcare needs. When you make an appointment with [facility], it's the start of a long-lasting partnership that's committed to your health. We provide the very best prevention, wellness and illness care, and give you access to the advanced medical services and expert treatment available at [facility]. Please note that the provider listed below is accepting patients in your area. [place]: [address] [id number] MD Debby Lala MD Christina [place], [place] For the most up-to-date information on a care provider in your community, use the Find a Doctor tool on [employer] [facility] * Attachments The following attachments cannot be sent through Care Everywhere. * Vertigo (German) * Arik Maneuver: Vertigo: Exercises (German) documented in this encounter* Instructions* Bakari Valente [...] be sent through Care Everywhere. * Bruises (German) * Contusion (German) documented in this encounter Assessments Diagnosis Vertigo- Primary Dizziness and giddiness Diagnosis Contusion of right knee, initial encounter Contusion of multiple sites of right shoulder and upper arm, initial encounter Additional Source Comments INFORMATION SOURCE (unrecogn ized section and content) DATE CREATED AUTHOR 04/09/2018 [facility] DATE CREATED AUTHOR AUTHOR'S ORGANIZ ATION 08/10/2020 [facility] DATE CREATED AUTHOR AUTHOR'S ORGANIZ ATION 09/07/2020 [facility] DATE CREATED AUTHOR AUTHOR'S ORGANIZ ATION 10/20/2020 [facility] DATE CREATED AUTHOR AUTHOR'S ORGANIZ ATION 03/18/2021 [facility] DATE CREATED AUTHOR AUTHOR'S ORGANIZ ATION 11/15/2021 [facility] DATE CREATED AUTHOR AUTHOR'S ORGANIZ ATION 08/25/2023 [facility] DATE CREATED AUTHOR AUTHOR'S ORGANIZ ATION 11/21/2023 [facility] EPIC Reason for Visit (unrecogniz ed section and content) Reason Comments Dizziness Reason Comments Knee Pain right knee pain, 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 denies hitting head or any LOC Shoulder Pain rt shoulder, fell ov er dust guzman onto her right side. Reason Comments Routine Visit Susan Griffiths PA-C - 10/14/2020 10:44 AM Amena Cantrell RN - 10/14/2020 10:32 AM EST ED Notes (unrecognized secti on and content) [facility] ED Note: NAME: Susan Bro 24 y.o. CSN: [id number] PCP: Physician No History: Chief Complaint: Dizziness [...] file Gets together: Not on file Attends christian service: Not on file Active member of [...] does have reproducible vertigo with position changes. [id number] maneuvers are intact without dysmetria. There is negative Romberg sign. There was no ataxia on ambulation. Psychiatric: Mood and Affect: Mood normal. Behavior: Behavior normal. Thought Content: Thought content normal. Laboratory & Radiological Imaging (if done): Labs Reviewed URINALYSIS - Abnormal; Notable for the following components: Result Value Clarity, Urine Cloudy (*) Specific Alba 1.028 (*) pH, Urine 8.0 (*) Protein, [...] at the following links: For Healthcare Providers: https://www.fda.gov/media/448051/download For Patients: https://www.fda.gov/media/234980/download HCG URINE, QUALITATIVE - Normal CBC AND DIFFERENTIAL Narrative: The following orders were created for panel order CBC w/ Diff. Procedure Abnormality Status --------- ------ CBC Auto Differential[[id number]] Abnormal Final result Please view results for [...] Antivert. She is referred to follow-up with [facility] or [place] that she does not currently have a [...] needed for dizziness . Susan Griffiths Physicians Indian Nanny [facility] Emergency Department Susan Griffiths PA-C 10/14/20 1203 Special isolation precautions are in place with signage outside this patient's room. This manager career performs hand hygiene and enters the patient [...] or prosecute any alcohol or drug abuse patient.[facility] Care Team (unrecognized sect ion and content) Personnel Name: THANG MILLAN CNP Address: [address] [place] [address] Personnel Name: THANG MILLAN CNP Address: [address] [place] [address] Personnel Name: THANG MILLAN CNP Address: [address] [place] [address] Personnel Name: THANG MILLAN CNP Address: [address] [place] [address] Personnel Name: THANG MILLAN CNP Address: [address] [place] [address] Personnel Name: THANG MILLAN CNP Address: [address] [place] [address] Personnel Name: THANG MILLAN CNP Address: [address] [place] [address] Personnel Name: THANG MILLAN CNP Address: [address] [place] [address] Personnel Name: THANG MILLAN CNP Address: Address: [address] [place] [address] Personnel Name: THANG MILLAN CNP Address: Address: [address] [place] [address]- [place] Personnel Name: THANG MILLAN CNP Address: Address: [address] [place] [address]- [place] Personnel Name: THANG MILLAN CNP Address: Address: [address] [place] [address]- [place] Personnel Name: THANG MILLAN CNP Address: Address: [address] [place] [address]- [place] Personnel Name: THANG MILLAN CNP Address: Address: [address] [place] [address]- [place] Personnel Name: THANG MILLAN CNP Address: Address: [address] [place] [address]- [place] Personnel Name: THANG MILLAN CNP Address: Address: [address] [place] [address]- [place] Personnel Name: THANG MILLAN CNP Address: Address: [address] [place] [address]- [place] Personnel Name: THANG MILLAN CNP Address: Address: [address] [place] [address]- [place] Personnel Name: THANG MILLAN CNP Address: Address: [address] [place] [address]- [place] Personnel Name: THANG MILLAN CNP Address: Address: [address] [place] [address]- [place] Personnel Name: THANG MILLAN CNP Address: Address: [address] [place] [address]- [place] Personnel Name: THANG MILLAN CNP Address: Address: [address] [place] [address]- [place] Personnel Name: THANG MILLAN CNP Address: Address: [address] [place] [address]- [place] Personnel Name: THANG MILLAN CNP Address: Address: [address] [place] [address]- [place] Personnel Name: THANG MILLAN CNP Address: Address: [address] [place] [address]- [place] Personnel Name: THANG MILLAN CNP Address: Address: [address] [place] [address]- [place] Personnel Name: Luis Carlos Jung MD Address: Address: [address] [place] [address] [place], [address] [address]- [place] Personnel Name: Luis Carlos Jung MD Address: Address: [facility] [address], [facility] [address] [place] [address]- [place] Personnel Name: Luis Carlos Jung MD Address: Address: [address], [facility] [address] Personnel Name: Luis Carlos Jung MD Address: Address: [facility] [address], [facility] [address] Personnel Name: Luis Carlos Jung MD Address: Address: [facility] [address], [facility] [address] Personnel Name: Rashaun AMADOR DO Address: Address: [address] , [place] Lopez[address] Personnel Name: NONE, XXXX Address: Address: [facility] Personnel Name: LLC, GENERIC Personnel Name: LLC, [...] BE BASED ON THE PRIMARY CLINICAL RECORDS. [facility] [employer] [facility]. provides no warranty or guarantee of the accuracy or completeness of information in this document.
== END 2023-11-27 10:53 | disposition home or self-care (01) ==
LOC: US 07:09 → FBC 09:51
PROVIDERS: Visit Provider Obstetrics & Gynecology
DX: O36.63X1 Maternal care for excessive fetal growth, third trimester, fetus 1 (principal); Z3A.36 36 weeks gestation of pregnancy
CPT/HCPCS: 36415; 76818; 84443; 87081

== ENCOUNTER 2023-11-27 09:09 | Outpatient (OUT) | payer OTHER, SELFPAY ==
[2023-11-27 10:59] LABS: Thyroid Stimulating Hormone 2.029 uIU/mL (0.358-3.740)
== END 2023-11-27 09:10 | disposition home or self-care (01) ==
LOC: LAB 09:10
PROVIDERS: Visit Provider Obstetrics & Gynecology
DX: Z34.92 Encounter for supervision of normal pregnancy, unspecified, second trimester (principal)
CPT/HCPCS: 36415; 84443

== ENCOUNTER 2023-11-27 21:20 | Outpatient (REF) | payer OTHER, SELFPAY ==
--- OUTSIDE RECORDS SUMMARY | 2023-11-27 21:27 | XMS_ITS | CCD ---
Author Name Unknown Address [address] [facility] [address] [place] [address] Organization [facility] Care Team Providers Care Concrete Tester Name Role Phone NKECHI TORRES Unavailable UnavailBAKARI Bang Attending Unavailable THANG MILLAN Primary Care Unavailable No, Physician Primary Care Provider Unavailerum BRODY, PHYSICIAN Primary Care Unavailable CHOW, REGINE Admitting Unavailable GERALDO REGINE Attending Unavailable Thang Millan Primary Care Provider [phone] Unavailable Primary Care Provider UnavailTHANG Mauro Primary Care Physician Luis Carlos Jung Primary Care Physician Rashaun AMADOR Primary Care Physician NONE, XXXX Primary Care Physician Unavailab samson MAHONEY, [facility] Primary Care Physician Unavailab DO Gopi Christensen [...] Roverto Barron Attending Unavailabl e Spasic, Roverto V. Admitting [...] H Attending Unavailable ANGELA, DODIE Attending Unavailable PERRY, [...] Allergy 7 [facility] (8 sources) Penicillins; Translations: [PENICILLINS] Propensity to adverse reactions to drug 0 [place], [place] (5 sources) Penicillin G procaine Allergy to substance [...] day(s), # 15 cap(s), Refills(s) 0, Pharmacy: [facility] 1986, 162.6, cm, 05/21/23 20:50:00 EDT, Height/Length Dosing, 75.3, kg, 05/21/23 20:50:00 EDT, Weight Dosing Start Date: 05/21/23 Stop Date: 05/26/23 Status: Ordered Start: 08-18-2022 End: 08-25-2022 take 1 capsule by mouth four times daily Keflex 500 mg Cap 500 mg = 1 cap(s), Oral, QID, X 7 day(s), # 28 cap(s), Refills(s) 0, Pharmacy: [facility] 1985, 162.5, cm, 08/18/22 4:15:00 EDT, Height/Length Dosing, 80, kg, 08/18/22 4:15:00 EDT, Weight Dosing Start Date: 08/18/22 Stop Date: 08/25/22 Status: Ordered Start: 07-17-2022 End: 07-22-2022 take 1 capsule by mouth every twelve hours Keflex 500 mg Cap 500 mg = 1 cap(s), Oral, q12hr, X 5 day(s), # 10 cap(s), Refills(s) 0, Pharmacy: [facility] 1986, 162.5, cm, 07/17/22 9:09:00 EDT, Height/Length Dosing, 80, kg, 07/17/22 9:09:00 EDT, Weight Dosing Start Date: 07/17/22 Stop Date: 07/22/22 Status: Ordered Start: 04-02-2022 End: 04-09-2022 take 1 capsule by mouth four times daily Keflex 500 mg Cap 500 mg = 1 cap(s), Oral, QID, X 7 day(s), # 28 cap(s), Refills(s) 0, Pharmacy: [facility] 1986, 160, cm, 04/02/22 6:28:00 EDT, Height/Length Dosing, 69.1, kg, 04/02/22 6:35:00 EDT, Weight Dosing Start Date: 04/02/22 Stop Date: 04/09/22 Status: Ordered cimetidine 300 mg oral tablet (3 sources) Histamine-2 Receptor Antagonist Start: 04-02-2022 cimetidine 300 mg oral tablet Refills(s) 0 Start Date: 04/02/22 Status: Ordered citalopram 20 mg oral tablet (5 sources) Serotonin Reuptake Inhibitor Start: 11-15-2023 End: 02-13-2024 take 1 tablet by mouth in the morning citalopram (CeleXA) 20 MG tablet Indications: Anxiety, generalized (CMS/HCC) Take 1 tablet (20 mg) by mouth in the morning. 30 tablet 2 11/15/2023 02/13/2024 Active Colace (3 sources) Start: 08-18-2023 Colace Refills(s) 0 Start Date: 08/18/23 Status: Ordered docusate sodium 50 mg / sennosides, jail 8.6 mg oral tablet (5 sources) senna-docusate (Colace 2-IN-1) 8.6-50 MG tablet [...] Daily, # 14 tab(s), Refills(s) 0, Pharmacy: [facility] 1985, 162.6, cm, 05/21/23 20:50:00 EDT, Height/Length Dosing, 75.3, kg, 05/21/23 20:50:00 EDT, Weight Dosing Start Date: 05/21/23 Status: Ordered ibuprofen 600 mg oral tablet (11 sources) Nonsteroidal Anti-inflammatory Drug Start: 09-27-2022 take 1 tablet by mouth every six hours ibuprofen 600 mg Tab 600 mg = 1 tab(s), Oral, q6hr, # 15 tab(s), Refills(s) 0, Pharmacy: [facility] 1985, 162.5, cm, 09/24/22 21:51:00 EST, Height/Length Dosing, 78.6, kg, 09/24/22 21:51:00 EST, Weight Dosing Start Date: 09/27/22 Status: Ordered levothyroxine sodium 0.125 mg oral tablet (20 sources) l-Thyroxine Start: 11-04-2023 take 1 tablet by mouth once daily levothyroxine 125 mcg (0.125 mg) Tab 125 mcg = 1 tab(s), Oral, Daily, Refills(s) 0 Start Date: 11/04/23 Status: Ordered Start: 09-25-2023 End: 02-25-2024 take 1 tablet by mouth before mealtime levothyroxine (Synthroid) 125 MCG tablet Indications: Hypothyroidism (acquired) (CMS/HCC) Take 1 tablet (125 mcg) by mouth in the morning. Take before meals. 90 tablet 0 11/27/2023 02/25/2024 Active Start: 01-07-2023 End: 11-27-2023 take 1 tablet by mouth in the morning levothyroxine (Synthroid, Levoxyl) 25 MCG tablet Take 25 mcg by mouth in the morning. 0 01/07/2023 11/27/2023 Discontinued (Therapy completed) Start: 03-03-2022 End: 11-27-2023 take 1 tablet by mouth once daily [...] Ordered magnesium oxide 400 mg oral tablet (5 sources) Start: 10-31-2023 End: 11-30-2023 take 1 tablet by mouth in the morning magnesium oxide (Mag-Ox) 400 MG tablet Indications: Nonintractable episodic headache, unspecified headache type Take 1 tablet (400 mg) by mouth in the morning. 30 tablet 6 10/31/2023 11/27/2023 Discontinued (Therapy completed) meclizine hydrochloride 25 mg oral tablet (3 sources) Antiemetic Start: 11-30-2021 take 1 tablet by mouth three times daily as needed for dizziness meclizine 25 mg Tab 25 mg = 1 tab(s), Oral, TID, PRN for dizziness, # 15 tab(s), Refills(s) 0, Pharmacy: [facility] [address], 163, cm, 11/30/21 7:18:00 [...] Nausea/Vomiting, # 12 tab(s), Refills(s) 0, Pharmacy: [facility] 1986, 163, cm, 09/05/22 20:14:00 EST, [...] day(s), # 6 tab(s), Refills(s) 0, Pharmacy: [facility], 163, cm, 06/28/23 10:39:00 EDT, Height/Length Dosing, 74.8, kg, 06/28/23 10:39:00 EDT, Weight Dosing Start Date: 06/28/23 Stop Date: 06/30/23 Status: Ordered Multivitamins (20 sources) Start: 03-03-2022 take 1 tablet by mouth once daily Multivitamins 1 tab(s), Oral, Daily, Refill(s) 0 Start Date: 03/03/22 Status: Ordered MV-Min-Fe Fum-FA-DHA ( 1 PO) (5 sources) MV-Min- Fe Fum-FA-DHA ( 1 PO) [...] venlafaxine 37.5 mg extended release oral capsule (6 sources) Serotonin and Norepinephrine Reuptake Inhibitor Start: 12-06-2022 End: 11-27-2023 take 1 capsule by mouth once daily at mealtime venlafaxine XR (Effexor XR) 37.5 MG 24 hr capsule TAKE 1 CAPSULE BY MOUTH ONCE DAILY WITH FOOD 0 12/06/2022 11/27/2023 Discontinued (Therapy completed) take 1 tablet by mouth twice pooja ly venlafaxine (EFFEXOR) 75 MG tablet Take 75 mg by mouth 2 (two) times a day . 0 Active Zofran ODT 4 mg Tab-Dis (6 sources) Start: 05-21-2023 take 1 tablet by mouth every eight hours Zofran ODT 4 mg Tab-Dis 4 mg = 1 tab(s), Oral, q8hr, # 12 tab(s), Refills(s) 0, Pharmacy: [facility] 1986, 162.6, cm, 05/21/23 20:50:00 EDT, [...] 07-06-2021 Chronic Other and delivery including normal (14 sources) Normal ; Translations: [Encounter for supervision [...] secondary to d ocumentation in Social History. Thyroid disorders (2 sources) Acquired hypothyroidism; Translations: [Hypothyroidism, unspecified] 11-27-2023 Chronic Unclassified (1 source) Contusion of right knee; Translations: [Contusion of right knee, initial encounter] Unclassified (20 sources) Patient encounter status 07-06-2021 Unclassified (20 sources) Onset: 03-23-2022 Resolved: 09-25-2022 03-23-2022 Unclassified (5 sources) OB Reminders Onset: 07-17-2023 07-17-2023 Urinary [...] Range Facility Urinalysis macro (dipstick) panel (U)on 11-27-2023 Bilirubin, UA Negative Negative - 4(70) +++ mg/dL [facility] Blood, UA Negative Negative - 50 Tod/mcL [facility] Clarity, UA Clear [facility] Color, UA Yellow [facility] Glucose, UA Negative Negative - 2000(110) ++++ mg/dL [facility] Interpretation and review of laboratory results Abnormal [facility] Ketones, UA Positive Negative - 160(16) ++++ mg/dL [facility] Leukocytes, UA Positive Negative - 500+++ Rosemarie/mcL [facility] Nitrite, UA Negative Negative - Positive [facility] pH, UA 6.5 5 - 9 [facility] Protein, UA Trace Negative - 1999(20) ++++ mg/dL [facility] Spec Grav, UA 1.025 1 - 1.03 [facility] Urobilinogen, UA 1.0 0.2 - 12 mg/dL [facility] Urinalysis macro (dipstick) panel (U)on 11-20-2023 Bilirubin, UA Negative Negative - 4(70) +++ mg/dL [facility] Blood, UA Negative Negative - 50 Tod/mcL [facility] Clarity, UA Clear [facility] Color, UA Yellow [facility] Glucose, UA Negative Negative - 1999(110) ++++ mg/dL [facility] Interpretation and review of laboratory results Normal [facility] Ketones, UA Negative Negative - 160(16) ++++ mg/dL [facility] Leukocytes, UA Negative Negative - 500+++ Rosemarie/mcL [facility] Nitrite, UA Negative Negative - Positive [facility] pH, UA 7.0 5 - 9 [facility] Protein, UA Negative Negative - 1999(20) ++++ mg/dL [facility] Spec Grav, UA 1.025 1 - 1.03 [facility] Urobilinogen, UA 1.0 0.2 - 12 mg/dL [facility] URINALYSISOrdered By: An Mccarty on 11-04-2023 Bacteria LM Ql (Urine sed) Trace /HPF Normal Trace/HPF [facility] UA Auto SS Bilirubin Ql (U) Negative (11/04/23 8:05 AM) Normal Negative [facility] UA Auto SS Clarity (U) SL CLOUDY Invalid Interpretation Code [facility] UA Auto SS Color (U) Yellow (11/04/23 8:05 AM) Normal Yellow [facility] UA Auto SS Epithelial cells.squamous LM.HPF (Urine sed) [#/Area] 5-8 /HPF Normal 0-2/HPF [facility] UA Auto SS Glucose Test strip (U) [Mass/Vol] Negative (11/04/23 8:05 AM) Normal Negative [facility] UA Auto SS Hemoglobin Ql (U) Negative (11/04/23 8:05 AM) Normal Negative [facility] UA Auto SS Ketones (U) [Mass/Vol] Negative (11/04/23 8:05 AM) Normal Negative [facility] UA Auto SS [place].plasma/[place] .RBC (Bld) [Mass ratio] 0-3 /HPF Normal 0-3/HPF [facility] UA Auto SS Mucus Ql (Urine sed) Trace (11/04/23 8:05 AM) Normal [facility] UA Auto SS Nitrite Ql (U) Negative (11/04/23 8:05 AM) Normal Negative FT UA Auto SS pH (U) 7.0 *NA* (11/04/23 8:05 AM) Invalid Interpretation Code 5.0 - 9.0 FT UA Auto SS Protein (U) [Mass/Vol] Negative (11/04/23 8:05 AM) Normal Negative FT UA Auto SS Specific gravity (U) [Rel density] 1.015 *NA* (11/04/23 8:05 AM) Invalid Interpretation Code 1.005 - 1.030 [facility] UA Auto SS UA Spec Desc Clean Catch (11/04/23 8:05 AM) Normal [facility] UA Auto SS Urobilinogen Qn (U) 0.0725262 {Rola'U}/dL Normal 0.0 - 1.0 EU/dL [facility] UA Auto SS WBC Auto Ql (U) 1+ *ABN* (11/04/23 8:05 AM) Invalid Interpretation Code Negative [facility] UA Auto SS WBC LM.HPF (Urine sed) [#/Area] 6-15 /HPF Invalid Interpretation Code 0-5/HPF [facility] UA Auto SS T3 Totalon 08-24-2023 T3 [Mass/Vol] 146 ng/dL Invalid Interpretation Code 71-180 [facility] Comment on above: Result Comment: Perf ormed at: [facility] [address] [id number] PhD Caroline [place] Performed By: #### 2 890531, 87079446, 1820570, 13000018, 4360257, 6533674, 12628193 ####[facility] [address] [place] [address] Auto Diffon 08-23-2023 Basophils/100 WBC (Bld) 0.9 % Normal 0.0-2.0 [facility] Comment on above: Order Comment: Order Added by Discern Expert. Performed By: #### 2 412164, 90245647, 9591821, 12354100, 4151433, 4497361, 95370408 ####[facility] [address] [place] [address] Basophils/Leukocytes Auto (Bld) [Pure # fraction] 0.1 E9/L Normal 0.0-0.2 [facility] Comment on above: Order Comment: Order Added by Discern Expert. Performed By: #### 2 350783, 14278701, 7283608, 03720723, 1618622, 0685224, 46031810 ####[address] [place] [address] Eosinophils/100 WBC (Bld) 1.3 % Normal 0.0-8.0 [facility] Comment on above: Order Comment: Order Added by Discern Expert. Performed By: #### 2 120928, 07260563, 2505324, 48432674, 5725863, 6854569, 68375117 ####[address] [address] Eosinophils/Leukocytes Auto (Bld) [Pure # fraction] 0.1 E9/L Normal 0.0-0.5 [facility] Comment on above: Order Comment: Order Added by Discern Expert. Performed By: #### 2 565487, 42340644, 6839675, 84776918, 8145088, 0587354, 92261589 ####[address] [address] Lymphocytes/100 WBC (Bld) 17.7 % Normal 14.0-50.0 [facility] Comment on above: Order Comment: Order Added by Discern Expert. Performed By: #### 2 943552, 91858906, 7136438, 55914287, 7401596, 8619989, 25935387 ####[address] [place] [address] Lymphocytes/Leukocytes Auto (Bld) [Pure # fraction] 1.4 E9/L Normal 1.0-4.0 [facility] Comment on above: Order Comment: Order Added by Discern Expert. Performed By: #### 2 822961, 45954546, 3530966, 34074721, 0029565, 9932339, 21715850 ####[address] [place] [address] Monocytes/100 WBC (Bld) 5.1 % Normal 4.0-14.0 [facility] Comment on above: Order Comment: Order Added by Discern Expert. Performed By: #### 2 247592, 59717089, 9957306, 93234287, 0264610, 3295119, 12844954 ####[address] [address] Monocytes/Leukocytes Auto (Bld) [Pure # fraction] 0.4 E9/L Normal 0.2-1.0 [facility] Comment on above: Order Comment: Order Added by Discern Expert. Performed By: #### 2 609651, 17666211, 2870287, 84480763, 8072254, 2422063, 26037755 ####[address] [address] Neutrophils/100 WBC (Bld) 75.0 % Normal 36.0-75.0 [facility] Comment on above: Order Comment: Order Added by Discern Expert. Performed By: #### 2 607408, 41932279, 3728658, 79295934, 4770831, 5231037, 98909547 ####[address] [address] Neutrophils/Leukocytes Auto (Bld) [Pure # fraction] 5.8 E9/L Normal 2.0-7.5 [facility] Comment on above: Order Comment: Order Added by Discern Expert. Performed By: #### 2 760750, 83925095, 4011034, 51105806, 9220471, 0962439, 42701978 ####[address] [place] [address] CBC w/ Auto Diffon 3 Erythrocyte distribution width (RBC) [Ratio] 14.5 % High 10.9-14.2 [facility] Comment on above: Performed By: #### 2 625374, 94861722, 4517827, 41489453, 8780695, 0565022, 42389307 ####[facility] [place] [address] Hematocrit (Bld) [Volume fraction] 36.4 % Normal 34.0-46.0 [facility] Comment on above: Performed By: #### 2 168127, 41858586, 1893711, 09887814, 1095793, 4396971, 86135554 ####[facility] [address] [place] [address] Hemoglobin (Bld) [Mass/Vol] 12.1 g/dL Normal 12.0-16.0 [facility] Comment on above: Performed By: #### 2 789837, 80141227, 8025512, 57853097, 9799562, 2952254, 11172643 ####[address] [place] [address] MCH (RBC) [Entitic mass] 30.2 pg Normal 27.0-34.0 [facility] Comment on above: Performed By: #### 2 847846, 26341276, 1811344, 30763299, 7782777, 3040460, 76947823 ####[facility] [address] [place] [address] MCHC (RBC) [Mass/Vol] 33.3 g/dL Normal 31.4-36.0 [facility] Comment on above: Performed By: #### 2 199964, 98628980, 2769705, 66683857, 8446126, 0624459, 80437633 ####[facility] [address] [place] [address] MCV (RBC) [Entitic vol] 90.8 fL Normal 80.0-100.0 [facility] Comment on above: Performed By: #### 2 169058, 59806388, 7000389, 94458771, 8239735, 9648637, 03108529 ####[facility] [address] [place] [address] Platelet mean volume (Bld) [Entitic vol] 9.7 fL Normal 6.4-10.8 [facility] Comment on above: Performed By: #### 2 524168, 88163705, 3375920, 14922362, 5685132, 2429119, 84376273 ####[facility] [address] [place] [address] Platelets (Bld) [#/Vol] 270.0 E9/L Normal 150.0-500.0 [facility] Comment on above: Performed By: #### 2 019461, 35829980, 5038592, 66152199, 3203703, 5717526, 83827401 ####[facility] [address] [place] [address] RBC (Bld) [#/Vol] 4.0 E12/L Low 4.3-5.9 [facility] Comment on above: Performed By: #### 2 456911, 31009681, 7484583, 95894076, 7912789, 3369126, 80721426 ####[facility] [address] [place] [address] WBC corrected for nucl RBC Auto (Bld) [#/Vol] 7.7 E9/L Normal 4.0-11.0 [facility] Comment on above: Performed By: #### 2 079666, 07817780, 4467429, 02606692, 2041415, 5696512, 46005360 ####[facility] [address] [place] [address] CHEMISTRYOrdered By: SYSTEM SYSTEM on 08-23-2023 Albumin [...] 125 mL/min/1.73 m2 Normal >=59mL/min/ 1.73 m2 [facility] Chem S Comment [...] 08-23-2023 Albumin [Mass/Vol] 2.8 g/dL Low 3.3-5.0 [facility] Comment on above: Performed By: #### 2 517879, 63784109, 9921143, 04188864, 9358313, 9685221, 74402415 ####[facility] [address] [place] [address] Albumin/Globulin (S) [Mass conc ratio] 0.7 Low 1.1-2.2 [facility] Comment on above: Performed By: #### 2 330578, 41519490, 8676820, 33482792, 3443760, 5445086, 30974477 ####[facility] [address] [place] [address] ALP [Catalytic activity/Vol] 49 Int._Unit/L Normal 21-98 [facility] Comment on above: Performed By: #### 2 720866, 01471661, 0222152, 08371575, 2334057, 7273817, 58858549 ####[facility] [address] [place] [address] ALT No additional P-5'-P [Catalytic activity/Vol] 15 Int._Unit/L Normal 6-46 [facility] Comment on above: Performed By: #### 2 854574, 86351307, 0938888, 18083914, 4350626, 7848413, 34849493 ####[facility] [address] [place] [address] Anion gap [Moles/Vol] 12 mmol/L Normal 6-16 [facility] Comment on above: Performed By: #### 2 898975, 71244628, 1917310, 06163573, 1176028, 5267551, 13071219 ####[facility] [address] [place] [address] AST [Catalytic activity/Vol] 17 Int._Unit/L Normal 5-43 [facility] Comment on above: Performed By: #### 2 705746, 48358794, 3838327, 96038649, 8062169, 0480469, 46600802 ####[address] [place] [address] Bilirubin [Mass/Vol] 0.5 mg/dL Normal 0.0-1.1 [facility] Comment on above: Performed By: #### 2 717362, 75567413, 7640707, 58332755, 5415435, 7815007, 89497171 ####[facility] [address] [place] [address] Calcium [Mass/Vol] 8.8 mg/dL Low 8.9-11.1 [facility] Comment on above: Performed By: #### 2 402505, 53670400, 0707412, 23344062, 4059694, 4123232, 09857333 ####[facility] [address] [place] [address] Chloride [Moles/Vol] 108 mmol/L Normal 101-111 [facility] Comment on above: Performed By: #### 2 024673, 21748975, 0504445, 75966479, 4125947, 9282942, 05346202 ####[address] [place] [address] CO2 [Moles/Vol] 22 mmol/L Normal 21-31 [facility] Comment on above: Performed By: #### 2 271524, 91823506, 2033783, 99576670, 5981507, 6577897, 12277204 ####[facility] [address] [place] [address] Creatinine [Mass/Vol] 0.6 mg/dL Normal 0.5-1.3 [facility] Comment on above: Performed By: #### 2 207064, 13365216, 1977509, 20827753, 5511821, 1190277, 56049554 ####[facility] [address] [place] [address] Globulin (S) [Mass/Vol] 3.8 g/dL Normal 1.4-4.0 [facility] Comment on above: Performed By: #### 2 360068, 73200543, 3346998, 50710588, 4644713, 9472278, 10878370 ####[facility] [address] [place] [address] Glucose [Mass/Vol] 88 mg/dL Normal 55-199 [facility] Comment on above: Result Comment: If t his glucose result represents a fasting glucose, interpretation should refer to the following reference range: 55-99 mg/dL Performed By: #### 2 230536, 45341586, 3232493, 10426497, 1176313, 4506711, 34033382 ####[facility] [address] [place] [address] Potassium [Moles/Vol] 3.5 mmol/L Normal 3.5-5.3 [facility] Comment on above: Performed By: #### 2 003419, 45551425, 2285495, 95077275, 3459200, 0183594, 75065209 ####[facility] [address] [place] [address] Protein [Mass/Vol] 6.6 g/dL Normal 6.0-7.8 [facility] Comment on above: Performed By: #### 2 832092, 55137436, 2653236, 39221659, 0724003, 7431042, 49083656 ####[facility] [address] [place] [address] Sodium [Moles/Vol] 138 mmol/L Normal 135-145 [facility] Comment on above: Performed By: #### 2 695203, 81925192, 5213539, 78656802, 0469304, 0613319, 78241667 ####[facility] [address] [place] [address] Urea nitrogen [Mass/Vol] 7 mg/dL Normal 5-21 [facility] Comment on above: Performed By: #### 2 259649, 15969032, 6828016, 43917911, 9326168, 1865470, 17062693 ####[facility] [address] [place] [address] Urea nitrogen/Creatinine [Mass ratio] 12 No Units Normal 10-20 [facility] Comment on above: Performed By: #### 2 474540, 05228155, 6152804, 63699326, 3688132, 0036274, 43332520 ####[facility] [address] [place] [address] HEMATOLOGYOrdered By: SYSTEM SYSTEM on 08-23-2023 Basophils/100 [...] 08-23-2023 Cholesterol [Mass/Vol] 238 mg/dL High 120-200 [facility] Comment on above: Performed By: #### 2 588099, 30720604, 4544878, 39688598, 5922989, 7803036, 30703087 ####[facility] [address] [place] [address] Cholesterol in HDL [Mass/Vol] 64 mg/dL Invalid Interpretation Code [facility] Comment on above: Result Comment: HDL > or equal to 60 mg/dL: Low cardiovascular riskHDL < 40 mg/dL : High cardiovascular risk Performed By: #### 2 639738, 94523989, 2541073, 86505368, 4871620, 9745730, 08125823 ####[facility] [address] [place] [address] Cholesterol in LDL [Mass/Vol] 146 mg/dL High <=129 [facility] Comment on above: Performed By: #### 2 132238, 85640408, 8839241, 97978170, 7023334, 1140511, 41448861 ####[facility] [address] [place] [address] Cholesterol in VLDL [Mass/Vol] 33 mg/dL Normal 7-40 [facility] Comment on above: Performed By: #### 2 565203, 09538120, 6913827, 37928277, 0658532, 7772892, 65265920 ####[facility] [address] [place] [address] Triglyceride [Mass/Vol] 164 mg/dL High <=149 [facility] Comment on above: Performed By: #### 2 297685, 94498807, 0739617, 83803597, 9555415, 8021177, 03239034 ####[facility] [address] [place] [address] Physician Orderon 08-23-2023 Physician Order [id number] Normal [facility] T4 & TSHon 08-23-2023 T4 [Mass/Vol] 11.8 microgram/dL High 4.6-9.1 [facility] Comment on above: Performed By: #### 2 799334, 45659428, 8116511, 33364523, 5328351, 8969106, 32126920 ####[facility] [address] [place] [address] TSH Qn 3.61 m[IU]/L Normal 0.34-5.60 [facility] Comment on above: Performed By: #### 2 860711, 54421438, 5289706, 49977718, 6733027, 0799201, 27827665 ####[facility] [address] [place] [address] eGFRon 08-23-2023 GFR/1.73 sq M.predicted among non-blacks MDRD (S/P/Bld) [Vol rate/Area] 125 mL/min/1.73 m2 Normal >=59 [facility] Comment on above: Order Comment: Order added by Discern Expert. Result Comment: Precision Lens Grinder lucy kidney disease could be indicated at eGFR's of less than 60 mL/min/1.73m2. Kidney failure is indicated at less than 15 mL/min/1.73m2. Performed By: #### 2 611241, 75006117, 0920083, 45560973, 1129011, 8282423, 89973131 ####[facility] [address] [place] [address] Nursing Assessmenton 023 Nursing Assessment [id number]#1.00TIFF Normal [facility] Consent for Treatmenton Consent for Treatment [id number]#1.00TIFF Normal [facility] Discharge Instructionson Discharge Instructions [id number]#1.00TIFF Normal [facility] Inpatient Clinical Summaryon 08-18-2023 Inpatient Clinical Summary Normal [facility] Inpatient Patient Summaryon 08-18-2023 Inpatient Patient Summary Normal [facility] Insurance Correspondenceon 10-18-2022 Insurance Correspondence [id number]#1.00TIFF Normal [facility] Vaccinationson 08-18-2023 Vaccinations [id number]#1.00TIFF Normal [facility] C Urineon 07-27-2023 Bacteria identified Cx Nom (U) Normal [facility] Comment on above: Performed By: #### 2 703410, 92445125 ####[facility] [address] [place] [address] ABO/Rhon 07-25-2023 ABO/Rh Positive Invalid Interpretation Code [facility] Comment on above: Performed By: #### 2 427780 ####[facility] [address] [place] [address] Auto Diffon 07-25-2023 Basophils/100 WBC (Bld) 1.1 % Normal 0.0-2.0 [facility] Comment on above: Order Comment: Order Added by Discern Expert. Performed By: #### 1 8046123, 1273534, 9071541, 0574339, 9764994, 1539238 ####[facility] [address] [place] [address] Basophils/Leukocytes Auto (Bld) [Pure # fraction] 0.1 E9/L Normal 0.0-0.2 [facility] Comment on above: Order Comment: Order Added by Discern Expert. Performed By: #### 1 0620372, 7559372, 1784801, 4549072, 8501860, 4451488 ####[facility] [address] [place] [address] Eosinophils/100 WBC (Bld) 1.2 % Normal 0.0-8.0 [facility] Comment on above: Order Comment: Order Added by Discern Expert. Performed By: #### 1 9852683, 4746825, 2740558, 7171964, 6198376, 9377617 ####[facility] [address] [place] [address] Eosinophils/Leukocytes Auto (Bld) [Pure # fraction] 0.1 E9/L Normal 0.0-0.5 [facility] Comment on above: Order Comment: Order Added by Discern Expert. Performed By: #### 1 9277215, 5080648, 0884547, 8348545, 7508136, 6535919 ####[address] [place] [address] Lymphocytes/100 WBC (Bld) 23.7 % Normal 14.0-50.0 [facility] Comment on above: Order Comment: Order Added by Discern Expert. Performed By: #### 1 5670213, 1885221, 7513610, 0120597, 4243782, 4224819 ####[address] [place] [address] Lymphocytes/Leukocytes Auto (Bld) [Pure # fraction] 1.4 E9/L Normal 1.0-4.0 [facility] Comment on above: Order Comment: Order Added by Gisselle Expert. Performed By: #### 1 7326146, 7726193, 7853066, 0049234, 3710947, 5405837 ####[address] [place] [address] Monocytes/100 WBC (Bld) 6.7 % Normal 4.0-14.0 [facility] Comment on above: Order Comment: Order Added by Gisselle Expert. Performed By: #### 1 2672556, 5214296, 1127085, 8090361, 0258085, 5089045 ####[address] [address] Monocytes/Leukocytes Auto (Bld) [Pure # fraction] 0.4 E9/L Normal 0.2-1.0 [facility] Comment on above: Order Comment: Order Added by Gisselle Expert. Performed By: #### 1 8181555, 0103196, 7519531, 5601773, 8953387, 3303303 ####[address] [place] [address] Neutrophils/100 WBC (Bld) 67.3 % Normal 36.0-75.0 [facility] Comment on above: Order Comment: Order Added by Gisselle Expert. Performed By: #### 1 7842135, 2128279, 5059647, 6257700, 4379222, 7139327 ####[facility] [address] [place] [address] Neutrophils/Leukocytes Auto (Bld) [Pure # fraction] 4.0 E9/L Normal 2.0-7.5 [facility] Comment on above: Order Comment: Order Added by Discern Expert. Performed By: #### 1 3536975, 8455494, 9062783, 1048433, 5883063, 4264084 ####[facility] [address] [place] [address] BLOOD BANKOrdered By: An Lassiter on 07-25-2023 ABO/Rh Interp Positive Invalid Interpretation Code [facility] BB Subsection BMPon 07-25-2023 Creatinine [Mass/Vol] 0.6 mg/dL Normal 0.5-1.3 [facility] Comment on above: Performed By: #### 1 3909248, 4670447, 5447819, 6518483, 2241617, 8744583 ####[facility] [address] [place] [address] Urea nitrogen [Mass/Vol] 6 mg/dL Normal 5-21 [facility] Comment on above: Performed By: #### 1 3434932, 4397328, 6481575, 5533585, 9990118, 4385783 ####[facility] [address] [place] [address] Urea nitrogen/Creatinine [Mass ratio] 10 No Units Normal -20 [facility] Comment on above: Performed By: #### 1 3526893, 2458311, 3151469, 1744240, 1080743, 3770973 ####[facility] [address] [place] [address] Anion gap [Moles/Vol] 2 mmol/L Low 6-16 [facility] Comment on above: Performed By: #### 1 1477664, 1064304, 8317091, 7412462, 5515136, 8205916 ####[facility] [address] [place] [address] Calcium [Mass/Vol] 8.6 mg/dL Low 8.9-11.1 [facility] Comment on above: Performed By: #### 1 8552684, 7792376, 9855123, 9093313, 6698217, 1237247 ####[facility] [address] [place] [address] Chloride [Moles/Vol] 107 mmol/L Normal 101-111 [facility] Comment on above: Performed By: #### 1 7371845, 3659589, 6820201, 5458049, 9421050, 0610404 ####[facility] [address] [place] [address] CO2 [Moles/Vol] 27 mmol/L Normal 21-31 [facility] Comment on above: Performed By: #### 1 7312470, 6955693, 7353584, 0169555, 0104217, 0869226 ####[facility] [address] [place] [address] Glucose [Mass/Vol] 73 mg/dL Normal 55-199 [facility] Comment on above: Result Comment: If t his glucose result represents a fasting glucose, interpretation should refer to the following reference range: 55-99 mg/dL Performed By: #### 1 9582879, 2704347, 4055502, 6337079, 7794154, 5486696 ####[facility] [address] [place] [address] Potassium [Moles/Vol] 3.9 mmol/L Normal 3.5-5.3 [facility] Comment on above: Performed By: #### 1 5726667, 1507726, 1296537, 5883107, 8766498, 8244515 ####[facility] [address] [place] [address] Sodium [Moles/Vol] 132 mmol/L Low 135-145 [facility] Comment on above: Performed By: #### 1 4925048, 4666293, 8766587, 0445684, 9089395, 7928590 ####[address] [address] BhCG Quanton 07-25-2023 [place] [address] m[IU]/mL High 1-3 [facility] Comment on above: Result Comment: GEST ATIONAL AGE HCG RANGE (mIU/mL) NON- <1-3 0.2-1 WEEKS 5-50 1-2 WEEKS 50-500 2-3 WEEKS 100-5,000 3-4 WEEKS 500-10,000 4-5 WEEKS 1,000-50,000 5-6 WEEKS 10,000-100,000 6-8 WEEKS 15,000-200,000 8-12 WEEKS 10,000-100,000 Performed By: #### 2 220818 ####[address] [place] [address] CBC w/ Auto Diffon Erythrocyte distribution width (RBC) [Ratio] 14.0 % Normal 10.9-14.2 [facility] Comment on above: Performed By: #### 1 9143382, 4724665, 2816025, 1509985, 2377145, 7411080 ####[address] [place] [address] Hematocrit (Bld) [Volume fraction] 37.1 % Normal 34.0-46.0 [facility] Comment on above: Performed By: #### 1 7456862, 8565267, 4848018, 5880831, 5205733, 7877402 ####[address] [address] Hemoglobin (Bld) [Mass/Vol] 12.5 g/dL Normal 12.0-16.0 [facility] Comment on above: Performed By: #### 1 6814335, 0786315, 2772960, 2132450, 3320469, 5160601 ####[address] [place] [address] MCH (RBC) [Entitic mass] 29.9 pg Normal 27.0-34.0 [facility] Comment on above: Performed By: #### 1 8601271, 6503670, 1133116, 1235496, 7566682, 4470562 ####[address] [place] [address] MCHC (RBC) [Mass/Vol] 33.8 g/dL Normal 31.4-36.0 [facility] Comment on above: Performed By: #### 1 6222858, 5854374, 8284929, 0546749, 7930175, 2546345 ####[address] [address] MCV (RBC) [Entitic vol] 88.4 fL Normal 80.0-100.0 [facility] Comment on above: Performed By: #### 1 7467506, 6002713, 9662801, 9561131, 2497645, 6852617 ####[address] [address] Platelet mean volume (Bld) [Entitic vol] 7.9 fL Normal 6.4-10.8 [facility] Comment on above: Performed By: #### 1 1726782, 5830618, 8736519, 9134031, 2151907, 6798481 ####[address] [address] Platelets (Bld) [#/Vol] 261.0 E9/L Normal 150.0-500.0 [facility] Comment on above: Performed By: #### 1 9117428, 9884960, 9968795, 8091404, 8490053, 4921371 ####[address] [address] RBC (Bld) [#/Vol] 4.2 E12/L Low 4.3-5.9 [facility] Comment on above: Performed By: #### 1 6583811, 8795712, 6304570, 9383446, 0852289, 4133421 ####[address] [address] WBC corrected for nucl RBC Auto (Bld) [#/Vol] 5.9 E9/L Normal 4.0-11.0 [facility] Comment on above: Performed By: #### 1 5634952, 7763499, 4929722, 0981269, 2887533, 9426832 ####[facility] [address] [place] [address] CHEMISTRYOrdered By: SYSTEM SYSTEM on 07-25-2023 Albumin [...] 125 mL/min/1.73 m2 Normal >=59mL/min/ 1.73 m2 [facility] Chem S Comment [...] reference range: 55-99 mg/[place] [address] m[IU]/mL High 1 - 3 mIU/mL [facility] [...] Consent for Treatmenton 07-15 Consent for Treatment [id number]#1.00TIFF Normal [facility] Discharge Instructionson Discharge Instructions [id number]#1.00TIFF Normal [facility] ED Clinical Summaryon 2022 ED Clinical Summary Normal Vika onofre [facility] ED Note-Physicianon 07-25-20 ED Note-Physician Normal [facility] Comment on above: Result Comment: Elec tronically Signed By: Jroge Velarde PA-C\.br\Date and Time Signed: 07/25/23 10:02 EDT\.br\Electronically Co-Signed By: Kristian Guillermo DO\.br\Date and Time Co-Signed: 07/25/23 20:25 EDT ED Patient Education Noteon 07-25-2023 ED Patient Education Note Normal [facility] ED Patient Summaryon ED Patient Summary Normal [facility] HEMATOLOGYOrdered By: SYSTEM SYSTEM on 07-25-2023 [...] HemeAutoSS HEMATOLOGYOrdered By: Luis Miguel Posadas on 10-11-2023 Erythrocyte distribution width (RBC) [Ratio] 14.0 % [...] Bilirubin.indirect [Mass or moles/Vol] UTC Abnormal 0.1-0.9 [facility] Comment on above: Result Comment: Resu lt verified by Discern Rule. Performed result UTC (Unable to Calculate) was sent as an Alpha code due the inability to calculate a valid numeric value. Performed By: #### 1 4189096, 4443403, 9808533, 2243168, 3620435, 8821625 ####[facility] [address] [place] [address] Albumin [Mass/Vol] 3.1 g/dL Low 3.3-5.0 [facility] Comment on above: Performed By: #### 1 0644116, 5022582, 0230366, 4358549, 5767230, 2689659 ####[facility] [address] [place] [address] Albumin/Globulin (S) [Mass conc ratio] 0.9 Low 1.1-2.2 [facility] Comment on above: Performed By: #### 1 9612176, 9505550, 8279644, 7783499, 1263200, 8919682 ####[address] [place] [address] ALP [Catalytic activity/Vol] 35 Int._Unit/L Normal 21-98 [facility] Comment on above: Performed By: #### 1 3340797, 1805816, 4296629, 2422406, 1935866, 1478174 ####[address] [place] [address] ALT No additional P-5'-P [Catalytic activity/Vol] 10 Int._Unit/L Normal 6-46 [facility] Comment on above: Performed By: #### 1 7083428, 3812389, 5624861, 9840738, 0981039, 2765459 ####[facility] [address] [place] [address] AST [Catalytic activity/Vol] 18 Int._Unit/L Normal 5-43 [facility] Comment on above: Performed By: #### 1 5628684, 4559280, 3355447, 2867373, 1485630, 6357411 ####[address] [place] [address] Bilirubin [Mass/Vol] 0.4 mg/dL Normal 0.0-1.1 [facility] Comment on above: Performed By: #### 1 4466508, 6457121, 6620365, 4060691, 9782615, 2457509 ####[address] [place] [address] Globulin (S) [Mass/Vol] 3.6 g/dL Normal 1.4-4.0 [facility] Comment on above: Performed By: #### 1 7712709, 6327657, 3686190, 6354918, 0217048, 6807423 ####[facility] [address] [place] [address] Protein [Mass/Vol] 6.7 g/dL Normal 6.0-7.8 [facility] Comment on above: Performed By: #### 1 4581387, 8346942, 8632221, 6897096, 5151043, 6183240 ####[facility] [address] [place] [address] Bilirubin.direct [Mass/Vol] mg/dL Normal 0.1-0.4 [facility] Comment on above: Performed By: #### 1 7638082, 8559856, 6033555, 6639548, 2702391, 2767321 ####[facility] [address] [place] [address] Lipase Levelon 07-25-2023 Lipase [Catalytic activity/Vol] 28 U/L Normal 13-58 [facility] Comment on above: Performed By: #### 1 6623209, 2576784, 2964308, 5645626, 3018934, 5598431 ####[facility] [address] [place] [address] UA With Cult Reflexon 2022 Bacteria LM Ql (Urine sed) TRACE Normal Trace [facility] Comment on above: Performed By: #### 2 971096, 74473664 ####[facility] [address] [place] [address] Bilirubin Ql (U) Negative Normal Negative [facility] Comment on above: Performed By: #### 2 800705, 00243569 ####[facility] [address] [place] [address] Clarity (U) SL CLOUDY Abnormal Clear [facility] Comment on above: Performed By: #### 2 626578, 79610912 ####[facility] [address] [place] [address] Color (U) YELLOW Normal Yellow [facility] Comment on above: Performed By: #### 2 325195, 49414397 ####[facility] [address] [place] [address] Epithelial cells.squamous LM.HPF (Urine sed) [#/Area] 0-2 Normal 0-2 [facility] Comment on above: Performed By: #### 2 221704, 22692367 ####[facility] [address] [place] [address] Glucose Test strip (U) [Mass/Vol] Negative Normal Negative [facility] Comment on above: Performed By: #### 2 589643, 23032738 ####[address] [address] Hemoglobin Ql (U) Negative Normal Negative [facility] Comment on above: Performed By: #### 2 600190, 94136406 ####[place] [address] Ketones (U) [Mass/Vol] Negative Normal Negative [facility] Comment on above: Performed By: #### 2 418235, 36010129 ####[place] [address] [place].plasma/[place] .RBC (Bld) [Mass ratio] 0-3 Normal 0-3 [facility] Comment on above: Performed By: #### 2 971796, 13321550 ####[address] [address] Nitrite Ql (U) Negative Normal Negative [facility] Comment on above: Performed By: #### 2 067799, 08462161 ####[address] [address] pH (U) 7.5 [pH] Invalid Interpretation Code 5.0-9.0 [facility] Comment on above: Performed By: #### 2 898383, 51830310 ####[address] [address] Protein (U) [Mass/Vol] Negative Normal Negative [facility] Comment on above: Performed By: #### 2 339014, 12972466 ####[address] [address] Specific gravity (U) [Rel density] 1.010 Invalid Interpretation Code 1.005-1.030 [facility] Comment on above: Performed By: #### 2 347351, 82013104 ####[facility] [address] [place] [address] Type of Urine collection method Clean Catch Normal [facility] Comment on above: Performed By: #### 2 991839, 85740453 ####[facility] [address] [place] [address] Urobilinogen Qn (U) 1.0 {Rola'U}/dL Normal 0.0-1.0 [facility] Comment on above: Performed By: #### 2 488713, 00933471 ####[facility] [address] [place] [address] WBC Auto Ql (U) 2+ Abnormal Negative [facility] Comment on above: Performed By: #### 2 577470, 22167749 ####[facility] [address] [place] [address] WBC LM.HPF (Urine sed) [#/Area] 0-5 Normal 0-5 [facility] Comment on above: Performed By: #### 2 244047, 98652196 ####[facility] [address] [place] [address] URINALYSISOrdered By: Emy Aiken on 07-25-2023 Bacteria [...] AM) Normal Negative [facility] UA Auto SS [place].plasma/[place] .RBC (Bld) [Mass ratio] 0-3 /HPF Normal [...] [facility] UA Auto SS Urobilinogen Qn (U) 1.2197428 {Rola'U}/dL Normal 0.0 - 1.0 EU/dL [facility] [...] [Vol rate/Area] 125 mL/min/1.73 m2 Normal >=59 [facility] Comment on above: Order Comment: Order added by Discern Expert. Result Comment: Precision Lens Grinder lucy kidney disease could be indicated at eGFR's of less than 60 mL/min/1.73m2. Kidney failure is indicated at less than 15 mL/min/1.73m2. Performed By: #### 1 3589176, 4874979, 5526130, 6195364, 3579708, 2385481 ####[facility] [address] [place] [address] C Urineon 06-30-2023 Bacteria identified Cx Nom (U) Normal [facility] Comment on above: Performed By: #### 2 535799 ####[facility] [address] [place] [address] Family [facility] Office/Clini c Noteon 06-28-2023 Family Medicine Office/Clinic Note Normal [facility] Comment on above: Result Comment: Elec tronically Signed By: Татьяна NICHOLS, Roverto Barron\.br\Date and Time Signed: 06/28/23 11:41 EDT Patient Educationon 06-28-20 Patient Education Normal [facility] ABO/Rhon 06-14-2023 ABO/Rh Positive Invalid Interpretation Code [facility] Comment on above: Performed By: #### 2 943380 ####[facility] [address] [place] [address] Auto Diffon 06-14-2023 Basophils/100 WBC (Bld) 0.8 % Normal 0.0-2.0 [facility] Comment on above: Order Comment: Order Added by Discern Expert. Performed By: #### 2 554327, 2020648, 0258747, 8256589, 1951255, 12288426 ####[facility] [address] [place] [address] Basophils/Leukocytes Auto (Bld) [Pure # fraction] 0.0 E9/L Normal 0.0-0.2 [facility] Comment on above: Order Comment: Order Added by Discern Expert. Performed By: #### 2 274978, 4245680, 4102256, 9899598, 8717378, 69907670 ####[facility] [address] [place] [address] Eosinophils/100 WBC (Bld) 1.9 % Normal 0.0-8.0 [facility] Comment on above: Order Comment: Order Added by Discern Expert. Performed By: #### 2 176800, 0748871, 9742720, 9361568, 7800832, 24676977 ####[address] [place] [address] Eosinophils/Leukocytes Auto (Bld) [Pure # fraction] 0.1 E9/L Normal 0.0-0.5 [facility] Comment on above: Order Comment: Order Added by Discern Expert. Performed By: #### 2 500768, 5441254, 3313641, 5052885, 7800066, 56130366 ####[address] [address] Lymphocytes/100 WBC (Bld) 24.5 % Normal 14.0-50.0 [facility] Comment on above: Order Comment: Order Added by Discern Expert. Performed By: #### 2 605606, 0534798, 3288927, 0223899, 8248031, 20481680 ####[address] [address] Lymphocytes/Leukocytes Auto (Bld) [Pure # fraction] 1.3 E9/L Normal 1.0-4.0 [facility] Comment on above: Order Comment: Order Added by Gisselle Expert. Performed By: #### 2 179827, 3300125, 1516868, 3154764, 4098246, 93744227 ####[address] [address] Monocytes/100 WBC (Bld) 7.8 % Normal 4.0-14.0 [facility] Comment on above: Order Comment: Order Added by Discern Expert. Performed By: #### 2 631185, 4321981, 4655486, 7072457, 3691241, 62770720 ####[address] [place] [address] Monocytes/Leukocytes Auto (Bld) [Pure # fraction] 0.4 E9/L Normal 0.2-1.0 [facility] Comment on above: Order Comment: Order Added by Discern Expert. Performed By: #### 2 625855, 5672197, 3389566, 9683737, 4919388, 86276203 ####[address] [place] [address] Neutrophils/100 WBC (Bld) 65.0 % Normal 36.0-75.0 [facility] Comment on above: Order Comment: Order Added by Discern Expert. Performed By: #### 2 678868, 9368132, 6758060, 6411524, 7603506, 39985776 ####[facility] [address] [place] [address] Neutrophils/Leukocytes Auto (Bld) [Pure # fraction] 3.5 E9/L Normal 2.0-7.5 [facility] Comment on above: Order Comment: Order Added by Discern Expert. Performed By: #### 2 371484, 5875408, 8093227, 3119991, 7249109, 92977360 ####[address] [address] BLOOD BANKOrdered By: Keila Kumar on 06-14-2023 ABO/Rh Interp Positive Invalid Interpretation Code [facility] BB Subsection BMPon 06-14-2023 Creatinine [Mass/Vol] 0.5 mg/dL Normal 0.5-1.3 [facility] Comment on above: Performed By: #### 2 417691, 2972642, 4746947, 9348574, 1852860, 62483250 ####[facility] [address] [place] [address] Urea nitrogen [Mass/Vol] 6 mg/dL Normal 5-21 [facility] Comment on above: Performed By: #### 2 552484, 6286809, 4039160, 4443646, 9854228, 49164838 ####[facility] [address] [place] [address] Urea nitrogen/Creatinine [Mass ratio] 12 No Units Normal 10-20 [facility] Comment on above: Performed By: #### 2 365207, 8472415, 4628548, 5557512, 1175441, 31275280 ####[facility] [address] [place] [address] Anion gap [Moles/Vol] 10 mmol/L Normal 6-16 [facility] Comment on above: Performed By: #### 2 974780, 3993881, 8319687, 4661251, 5288955, 38770237 ####[facility] [address] [place] [address] Calcium [Mass/Vol] 8.7 mg/dL Low 8.9-11.1 [facility] Comment on above: Performed By: #### 2 212875, 8529434, 6051050, 5732142, 3893615, 90694847 ####[facility] [address] [place] [address] Chloride [Moles/Vol] 107 mmol/L Normal 101-111 [facility] Comment on above: Performed By: #### 2 426970, 8997337, 7156997, 5203494, 4455855, 15763778 ####[facility] [address] [place] [address] CO2 [Moles/Vol] 21 mmol/L Normal 21-31 [facility] Comment on above: Performed By: #### 2 021028, 0653217, 6650547, 2851510, 5872813, 21525206 ####[facility] [address] [place] [address] Glucose [Mass/Vol] 77 mg/dL Normal 55-199 [facility] Comment on above: Result Comment: If t his glucose result represents a fasting glucose, interpretation should refer to the following reference range: 55-99 mg/dL Performed By: #### 2 383094, 9866858, 6536198, 2958803, 0847537, 29011698 ####[facility] [address] [place] [address] Potassium [Moles/Vol] 3.8 mmol/L Normal 3.5-5.3 [facility] Comment on above: Performed By: #### 2 798510, 6079652, 0064311, 5533370, 1074295, 70766790 ####[facility] [address] [place] [address] Sodium [Moles/Vol] 134 mmol/L Low 135-145 [facility] Comment on above: Performed By: #### 2 029737, 6377234, 7848009, 9808426, 7668459, 15140364 ####[facility] [address] [place] [address] BhCG Quanton 06-14-2023 HCG.beta subunit Qn 291557 m[IU]/mL High 1-3 [facility] Comment on above: Result Comment: GEST ATIONAL AGE HCG RANGE (mIU/mL) NON- <1-3 0.2-1 WEEKS 5-50 1-2 WEEKS 50-500 2-3 WEEKS 100-5,000 3-4 WEEKS 500-10,000 4-5 WEEKS 1,000-50,000 5-6 WEEKS 10,000-100,000 6-8 WEEKS 15,000-200,000 8-12 WEEKS 10,000-100,000 Performed By: #### 2 206900 ####[facility] [address] [place] [address] CBC w/ Auto Diffon Erythrocyte distribution width (RBC) [Ratio] 12.6 % Normal 10.9-14.2 [facility] Comment on above: Performed By: #### 2 967801, 7439078, 3869940, 6047354, 7000591, 01090632 ####[facility] [address] [place] [address] Hematocrit (Bld) [Volume fraction] 39.9 % Normal 34.0-46.0 [facility] Comment on above: Performed By: #### 2 278537, 0014065, 5570861, 5919685, 0903107, 29810945 ####[facility] [address] [place] [address] Hemoglobin (Bld) [Mass/Vol] 13.4 g/dL Normal 12.0-16.0 [facility] Comment on above: Performed By: #### 2 933257, 3257568, 2447726, 8929688, 9241701, 52372371 ####[facility] [address] [place] [address] MCH (RBC) [Entitic mass] 29.8 pg Normal 27.0-34.0 [facility] Comment on above: Performed By: #### 2 345055, 2157214, 8958144, 0031696, 3003397, 78075228 ####[place] [address]1757 MCHC (RBC) [Mass/Vol] 33.6 g/dL Normal 31.4-36.0 [facility] Comment on above: Performed By: #### 2 226436, 7900239, 1453342, 9395121, 9582328, 82151880 ####[address] [address] MCV (RBC) [Entitic vol] 88.8 fL Normal 80.0-100.0 [facility] Comment on above: Performed By: #### 2 030554, 4732928, 4818565, 3762960, 5970868, 11526499 ####[address] [address] Platelet mean volume (Bld) [Entitic vol] 8.4 fL Normal 6.4-10.8 [facility] Comment on above: Performed By: #### 2 752276, 7187403, 1787408, 5536440, 7490664, 34063123 ####[place] [address]57 Platelets (Bld) [#/Vol] 225.0 E9/L Normal 150.0-500.0 [facility] Comment on above: Performed By: #### 2 587285, 5726317, 2386861, 5172532, 6532138, 40487770 ####[address] [address] RBC (Bld) [#/Vol] 4.5 E12/L Normal 4.3-5.9 [facility] Comment on above: Performed By: #### 2 066212, 1685209, 5820981, 1818982, 8658131, 02347542 ####[facility] [address] [place] [address] WBC corrected for nucl RBC Auto (Bld) [#/Vol] 5.4 E9/L Normal 4.0-11.0 [facility] Comment on above: Performed By: #### 2 898920, 8267706, 9695748, 9863519, 3865266, 12623325 ####[facility] [address] [place] [address] CHEMISTRYOrdered By: SYSTEM SYSTEM on 06-14-2023 Albumin [...] 130 mL/min/1.73 m2 Normal >=59mL/min/ 1.73 m2 [facility] Chem S Globulin (S) [Mass/Vol] 3.3 g/dL Normal 1.4 - 4.0 gm/dL FT [facility] Glucose [Mass/Vol] 77 mg/dL Normal 55 - 199 mg/dL FT Remisol HCG.beta subunit Qn 674666 m[IU]/mL High 1 - 3 mIU/mL FT [...] Consent for Treatmenton 05-17 Consent for Treatment [id number]:12 7 Normal [facility] ED Clinical Summaryon 2022 ED Clinical Summary Normal [facility] ED Note-Physicianon 06-14-20 ED Note-Physician Normal [facility] Comment on above: Result Comment: Elec tronically Signed By: Jos Ugalde PA-C\.br\Date and Time Signed: 06/14/23 11:58 EDT\.br\Electronically Co-Signed By: Kristian Guillermo DO.br\Date and Time Co-Signed: 06/14/23 17:02 EDT ED Patient Education Noteon 06-14-2023 ED Patient Education Note Normal [facility] ED Patient Summaryon 023 ED Patient Summary Normal [facility] HEMATOLOGYOrdered By: SYSTEM SYSTEM on 06-14-2023 [...] 88.8 fL Normal 80.0 - 100.0 fL [facility] HemeAutoSS Platelet mean volume (Bld) [Entitic vol] 8.4 fL Normal 6.4 - 10.8 fL FT HemeAutoSS Platelets (Bld) [#/Vol] 225.0 E9/L Normal 150.0 - 500.0 E9/L FT HemeAutoSS RBC (Bld) [#/Vol] 4.5 E12/L Normal 4.3 - 5.9 E12/L [facility] HemeAutoSS WBC corrected for nucl RBC Auto (Bld) [#/Vol] 5.4 E9/L Normal 4.0 - 11.0 E9/L [facility] HemeAutoSS Hep Func Panelon 06-14-2023 Bilirubin.indirect [Mass or moles/Vol] UTC Abnormal 0.1-0.9 [facility] Comment on above: Result Comment: Resu lt verified by Discern Rule. Performed result UTC (Unable to Calculate) was sent as an Alpha code due the inability to calculate a valid numeric value. Performed By: #### 2 408469, 1247179, 2742148, 1888754, 4426354, 43115905 ####[facility] [address] [place] [address] Albumin [Mass/Vol] 3.5 g/dL Normal 3.3-5.0 [facility] Comment on above: Performed By: #### 2 200331, 7923475, 9167063, 8356797, 7574211, 19456639 ####[facility] [address] [place] [address] Albumin/Globulin (S) [Mass conc ratio] 1.1 Normal 1.1-2.2 [facility] Comment on above: Performed By: #### 2 749211, 8564970, 4614316, 1698073, 7006133, 45193592 ####[facility] [address] [place] [address] ALP [Catalytic activity/Vol] 34 Int._Unit/L Normal 21-98 [facility] Comment on above: Performed By: #### 2 407480, 4279816, 8628522, 9649180, 2246874, 99684103 ####[facility] [address] [place] [address] ALT No additional P-5'-P [Catalytic activity/Vol] 13 Int._Unit/L Normal 6-46 [facility] Comment on above: Performed By: #### 2 953008, 6547488, 6826218, 1404148, 6947985, 31833566 ####[facility] [address] [place] [address] AST [Catalytic activity/Vol] 17 Int._Unit/L Normal 5-43 [facility] Comment on above: Performed By: #### 2 062413, 5363594, 1222923, 7907426, 1374871, 65929350 ####[facility] [address] [place] [address] Bilirubin [Mass/Vol] 0.6 mg/dL Normal 0.0-1.1 [facility] Comment on above: Performed By: #### 2 236277, 6185458, 8246881, 6206311, 5653420, 55236848 ####[facility] [address] [place] [address] Globulin (S) [Mass/Vol] 3.3 g/dL Normal 1.4-4.0 [facility] Comment on above: Performed By: #### 2 748410, 5611090, 1170988, 4545016, 3907857, 16812141 ####[facility] [address] [place] [address] Protein [Mass/Vol] 6.8 g/dL Normal 6.0-7.8 [facility] Comment on above: Performed By: #### 2 094115, 3594856, 7442231, 3871882, 5167724, 40268463 ####[facility] [address] [place] [address] Bilirubin.direct [Mass/Vol] mg/dL Normal 0.1-0.4 [facility] Comment on above: Performed By: #### 2 040072, 4446354, 7224832, 3947459, 8424879, 20929172 ####[facility] [address] [place] [address] Lipase Levelon 06-14-2023 Lipase [Catalytic activity/Vol] 28 U/L Normal 13-58 [facility] Comment on above: Performed By: #### 2 510219, 4448583, 2718511, 6940069, 2835951, 52123784 ####[facility] [address] [place] [address] Progress Note-Nurseon 2022 Progress Note-Nurse MAHESH Hinds verbalize d she was unable to locate patient at this time Normal [facility] UA With Cult Reflexon 2022 Bacteria LM Ql (Urine sed) TRACE Normal Trace [facility] Comment on above: Performed By: #### 1 7309238 ####[address] [address] Bilirubin Ql (U) Negative Normal Negative [facility] Comment on above: Performed By: #### 1 4432432 ####[address] [address] Clarity (U) CLEAR Normal Clear [facility] Comment on above: Performed By: #### 1 2446797 ####[address] [address] Color (U) YELLOW Normal Yellow [facility] Comment on above: Performed By: #### 1 0496695 ####[address] [address] Epithelial cells.squamous LM.HPF (Urine sed) [#/Area] 3-4 Normal 0-2 [facility] Comment on above: Performed By: #### 1 6126198 ####[address] [address] Glucose Test strip (U) [Mass/Vol] Negative Normal Negative [facility] Comment on above: Performed By: #### 1 4079959 ####[address] [address] Hemoglobin Ql (U) Negative Normal Negative [facility] Comment on above: Performed By: #### 1 3325131 ####[place] [address] [place] [address] Ketones (U) [Mass/Vol] Negative Normal Negative [facility] Comment on above: Performed By: #### 1 2889699 ####[address] [address] [place].plasma/[place] .RBC (Bld) [Mass ratio] 0-3 Normal 0-3 [facility] Comment on above: Performed By: #### 1 6978123 ####[address] [address] Mucus Ql (Urine sed) TRACE Normal Fish [facility] Comment on above: Performed By: #### 1 7033252 ####[address] [address] Nitrite Ql (U) Negative Normal Negative [facility] Comment on above: Performed By: #### 1 2060142 ####[address] [address] pH (U) 6.5 [pH] Invalid Interpretation Code 5.0-9.0 [facility] Comment on above: Performed By: #### 1 5115015 ####[address] [address] Protein (U) [Mass/Vol] Negative Normal Negative [facility] Comment on above: Performed By: #### 1 9565364 ####[address] [address] Specific gravity (U) [Rel density] 1.015 Invalid Interpretation Code 1.005-1.030 [facility] Comment on above: Performed By: #### 1 8625269 ####[address] [address] Type of Urine collection method Clean Catch Normal [facility] Comment on above: Performed By: #### 1 5919685 ####[place] [address] [place] [address] Urobilinogen Qn (U) 0.2 {Rola'U}/dL Normal 0.0-1.0 [facility] Comment on above: Performed By: #### 1 8647593 ####[facility] [address] [place] [address] WBC Auto Ql (U) TRACE Abnormal Negative [facility] Comment on above: Performed By: #### 1 9905637 ####[facility] [address] [place] [address] WBC LM.HPF (Urine sed) [#/Area] 0-5 Normal 0-5 [facility] Comment on above: Performed By: #### 1 0041166 ####[facility] [address] [place] [address] URINALYSISOrdered By: An Mccarty on 06-14-2023 Bacteria [...] (Urine sed) [#/Area] 3-4 /HPF Normal 0-2/HPF [facility] UA Auto SS Glucose Test strip (U) [Mass/Vol] Negative (06/14/23 10:13 AM) Normal Negative [facility] UA Auto SS Hemoglobin Ql (U) Negative (06/14/23 10:13 AM) Normal Negative [facility] UA Auto SS Ketones (U) [Mass/Vol] Negative (06/14/23 10:13 AM) Normal Negative [facility] UA Auto SS [place].plasma/[place] .RBC (Bld) [Mass ratio] 0-3 /HPF Normal [...] [facility] UA Auto SS Urobilinogen Qn (U) 0.7118609 {Rola'U}/dL Normal 0.0 - 1.0 EU/dL [facility] UA Auto SS WBC Auto Ql (U) Trace *ABN* (06/14/23 10:13 AM) Invalid Interpretation Code Negative [facility] UA Auto SS WBC LM.HPF (Urine sed) [#/Area] 0-5 /HPF Normal 0-5/HPF [facility] UA Auto SS US 1st Trimesteron 06-14-2023 US 1st Trimester Normal [facility] eGFRon 06-14-2023 GFR/1.73 sq M.predicted among non-blacks MDRD (S/P/Bld) [Vol rate/Area] 130 mL/min/1.73 m2 Normal >=59 [facility] Comment on above: Order Comment: Order added by Discern Expert. Result Comment: Precision Lens Grinder lucy kidney disease could be indicated at eGFR's of less than 60 mL/min/1.73m2. Kidney failure is indicated at less than 15 mL/min/1.73m2. Performed By: #### 2 157812, 3598071, 2579923, 8286247, 3641445, 81509336 ####[facility] [address] [place] [address] CHEMISTRYOrdered By: SYSTEM SYSTEM on 06-12-2023 TSH Qn 3.80 m[IU]/L Normal 0.34 - 5.60 mcIU/mL [facility] Remisol Consent for Treatmenton 05-16 Consent for Treatment [id number]:12 7 Normal [facility] Physician Orderon 06-12-2023 Physician Order [id number]#[id number]:12 7 Normal [facility] TSHon 06-12-2023 TSH Qn 3.80 m[IU]/L Normal 0.34-5.60 [facility] Comment on above: Performed By: #### 2 795604 ####[facility] [address] [place] [address] BhCG Quanton 05-22-2023 HCG.beta subunit Qn 287009 m[IU]/mL High 1-3 [facility] Comment on above: Result Comment: GEST ATIONAL AGE HCG RANGE (mIU/mL) NON- <1-3 0.2-1 WEEKS 5-50 1-2 WEEKS 50-500 2-3 WEEKS 100-5,000 3-4 WEEKS 500-10,000 4-5 WEEKS 1,000-50,000 5-6 WEEKS 10,000-100,000 6-8 WEEKS 15,000-200,000 8-12 WEEKS 10,000-100,000 Performed By: #### 2 874437 ####[facility] [address] [place] [address] Discharge Instructionson Discharge Instructions [id number]:1 27 Normal [facility] ED Clinical Summaryon 2022 ED Clinical Summary Normal [facility] ED Note-Physicianon 05-22-20 23 ED Note-Physician Normal [facility] Comment on above: Result Comment: Elec tronically Signed By: Gopi Rodriguez DO\.br\Date and Time Signed: 05/21/23 23:17 EDT ED Patient Education Noteon 05-22-2023 ED Patient Education Note Normal [facility] ED Patient Summaryon 023 ED Patient Summary Normal [facility] UA With Cult Reflexon 2022 Bacteria LM Ql (Urine sed) TRACE Normal Trace [facility] Comment on above: Performed By: #### 1 3215274 ####[facility] [address] [place] [address] Bilirubin Ql (U) Negative Normal Negative [facility] Comment on above: Performed By: #### 1 3566164 ####[address] [address] Clarity (U) CLEAR Normal Clear [facility] Comment on above: Performed By: #### 1 5165571 ####[address] [address] Color (U) DARK YELLO Abnormal Yellow [facility] Comment on above: Performed By: #### 1 4265138 ####[address] [address] Epithelial cells.squamous LM.HPF (Urine sed) [#/Area] 0-2 Normal 0-2 [facility] Comment on above: Performed By: #### 1 9691372 ####[address] [address] Glucose Test strip (U) [Mass/Vol] Negative Normal Negative [facility] Comment on above: Performed By: #### 1 7464019 ####[address] [address] Hemoglobin Ql (U) TRACE Abnormal Negative [facility] Comment on above: Performed By: #### 1 3922844 ####[facility] [address] [place] [address] Ketones (U) [Mass/Vol] TRACE Abnormal Negative Fi [facility] Comment on above: Performed By: #### 1 7021584 ####[address] [address] [place].plasma/[place] .RBC (Bld) [Mass ratio] 4-20 Normal 0-3 [facility] Comment on above: Performed By: #### 1 0612795 ####[address] [address] Mucus Ql (Urine sed) 1+ Normal Fish [facility] Comment on above: Performed By: #### 1 4527177 ####[address] [address] Nitrite Ql (U) Negative Normal Negative [facility] Comment on above: Performed By: #### 1 3310292 ####[address] [address] pH (U) 6.0 [pH] Invalid Interpretation Code 5.0-9.0 [facility] Comment on above: Performed By: #### 1 8885703 ####[address] [address] Protein (U) [Mass/Vol] 2+ Abnormal Negative Fi [facility] Comment on above: Performed By: #### 1 4124518 ####[address] [address] Specific gravity (U) [Rel density] >=1.030 Invalid Interpretation Code 1.005-1.030 [facility] Comment on above: Performed By: #### 1 4117922 ####[address] [address] Type of Urine collection method Clean Catch Normal [facility] Comment on above: Performed By: #### 1 0012184 ####[address] [address] Urobilinogen Qn (U) 0.2 {Rola'U}/dL Normal 0.0-1.0 [facility] Comment on above: Performed By: #### 1 9694659 ####[address] [address] WBC Auto Ql (U) Negative Normal Negative [facility] Comment on above: Performed By: #### 1 4029250 ####[address] [address] WBC LM.HPF (Urine sed) [#/Area] 0-5 Normal 0-5 [facility] Comment on above: Performed By: #### 1 7315963 ####[address] [place] [address] US 1st Trimesteron 05-22-2023 US 1st Trimester Normal [facility] Auto Diffon 05-21-2023 Basophils/100 WBC (Bld) 1.0 % Normal 0.0-2.0 [facility] Comment on above: Order Comment: Order Added by Discern Expert. Performed By: #### 2 284719, 9422938, 70842989, 79842805, 2708737, 5650416, 4737571 ####[facility] [address] [place] [address] Basophils/Leukocytes Auto (Bld) [Pure # fraction] 0.1 E9/L Normal 0.0-0.2 [facility] Comment on above: Order Comment: Order Added by Discern Expert. Performed By: #### 2 449310, 4511889, 19398307, 44766852, 3025513, 7248160, 5683330 ####[address] [address] Eosinophils/100 WBC (Bld) 1.5 % Normal 0.0-8.0 [facility] Comment on above: Order Comment: Order Added by Discern Expert. Performed By: #### 2 058158, 8215481, 53716857, 07171666, 3538033, 3168132, 0786441 ####[address] [address] Eosinophils/Leukocytes Auto (Bld) [Pure # fraction] 0.1 E9/L Normal 0.0-0.5 [facility] Comment on above: Order Comment: Order Added by Discern Expert. Performed By: #### 2 769662, 0715261, 94634217, 90345730, 3016745, 2514866, 8332206 ####[address] [address] Lymphocytes/100 WBC (Bld) 36.6 % Normal 14.0-50.0 [facility] Comment on above: Order Comment: Order Added by Discern Expert. Performed By: #### 2 083647, 7877809, 00593679, 85048651, 5015626, 4874710, 2399910 ####[place] [address] [place] [address] Lymphocytes/Leukocytes Auto (Bld) [Pure # fraction] 2.5 E9/L Normal 1.0-4.0 [facility] Comment on above: Order Comment: Order Added by Discern Expert. Performed By: #### 2 386291, 0656585, 06979341, 81017606, 7564372, 2739885, 4571315 ####[address] [address] Monocytes/100 WBC (Bld) 8.2 % Normal 4.0-14.0 [facility] Comment on above: Order Comment: Order Added by Discern Expert. Performed By: #### 2 624067, 9824350, 87436715, 60097207, 9561301, 7081039, 4307194 ####[address] [address] Monocytes/Leukocytes Auto (Bld) [Pure # fraction] 0.6 E9/L Normal 0.2-1.0 [facility] Comment on above: Order Comment: Order Added by Discern Expert. Performed By: #### 2 215529, 0671437, 08254659, 60215156, 9364216, 3846036, 4107655 ####[address] [address] Neutrophils/100 WBC (Bld) 52.7 % Normal 36.0-75.0 [facility] Comment on above: Order Comment: Order Added by Discern Expert. Performed By: #### 2 071012, 1857611, 57143679, 86374579, 8193155, 5356702, 9557219 ####[address] [address] Neutrophils/Leukocytes Auto (Bld) [Pure # fraction] 3.6 E9/L Normal 2.0-7.5 [facility] Comment on above: Order Comment: Order Added by Discern Expert. Performed By: #### 2 946386, 5514071, 60160756, 98757329, 2220722, 7535821, 5193886 ####[facility] [address] [place] [address] BMPon 05-21-2023 Creatinine [Mass/Vol] 0.7 mg/dL Normal 0.5-1.3 [facility] Comment on above: Performed By: #### 2 599686, 2584774, 05885521, 38094121, 6682696, 0848463, 8669206 ####[facility] [address] [place] [address] Urea nitrogen [Mass/Vol] 8 mg/dL Normal 5-21 [facility] Comment on above: Performed By: #### 2 350026, 9140179, 61755709, 58149531, 6892548, 4269531, 5304298 ####[facility] [address] [place] [address] Urea nitrogen/Creatinine [Mass ratio] 11 No Units Normal 10-20 [facility] Comment on above: Performed By: #### 2 481938, 8966233, 80099107, 17693087, 8845428, 9598334, 4466647 ####[facility] [address] [place] [address] Anion gap [Moles/Vol] 12 mmol/L Normal 6-16 [facility] Comment on above: Performed By: #### 2 918429, 1093233, 77004337, 65686275, 2511455, 1814940, 3976177 ####[facility] [address] [place] [address] Calcium [Mass/Vol] 9.2 mg/dL Normal 8.9-11.1 [facility] Comment on above: Performed By: #### 2 433847, 6249165, 31201436, 94302307, 4271025, 2688212, 2710509 ####[facility] [address] [place] [address] Chloride [Moles/Vol] 104 mmol/L Normal 101-111 Fish [facility] Comment on above: Performed By: #### 2 374963, 5654046, 14487913, 02309047, 6916822, 4476806, 8247921 ####[facility] [address] [place] [address] CO2 [Moles/Vol] 24 mmol/L Normal 21-31 [facility] Comment on above: Performed By: #### 2 549346, 8568852, 11416667, 74692867, 9236133, 6445021, 8102610 ####[facility] [address] [place] [address] Glucose [Mass/Vol] 87 mg/dL Normal 55-199 [facility] Comment on above: Result Comment: If t his glucose result represents a fasting glucose, interpretation should refer to the following reference range: 55-99 mg/dL Performed By: #### 2 051411, 4663312, 91506991, 98515043, 8893794, 7791494, 8364104 ####[facility] [address] [place] [address] Potassium [Moles/Vol] 3.2 mmol/L Low 3.5-5.3 [facility] Comment on above: Performed By: #### 2 280947, 8412582, 31212982, 95725855, 6141009, 0763694, 8523360 ####[facility] [address] [place] [address] Sodium [Moles/Vol] 137 mmol/L Normal 135-145 [facility] Comment on above: Performed By: #### 2 240798, 1161081, 75205988, 19047263, 8513957, 6943760, 2718097 ####[facility] [address] [place] [address] CBC w/ Auto Diffon 3 Erythrocyte distribution width (RBC) [Ratio] 13.3 % Normal 10.9-14.2 [facility] Comment on above: Performed By: #### 2 470621, 4688719, 49364658, 88421349, 6199156, 5594890, 8899039 ####[address] [place] [address] Hematocrit (Bld) [Volume fraction] 39.0 % Normal 34.0-46.0 [facility] Comment on above: Performed By: #### 2 508835, 0527402, 94206457, 84290984, 9222194, 7685503, 5387115 ####[address] [address] Hemoglobin (Bld) [Mass/Vol] 13.3 g/dL Normal 12.0-16.0 [facility] Comment on above: Performed By: #### 2 365209, 2337654, 29651414, 51494244, 6638151, 5678959, 7725778 ####[place] [address] MCH (RBC) [Entitic mass] 30.3 pg Normal 27.0-34.0 [facility] Comment on above: Performed By: #### 2 538313, 4202693, 99404099, 50227646, 4102549, 5748371, 8209967 ####[address] [address] MCHC (RBC) [Mass/Vol] 34.2 g/dL Normal 31.4-36.0 [facility] Comment on above: Performed By: #### 2 239430, 3416151, 20685096, 16753018, 7133678, 6648029, 5646306 ####[address] [address] MCV (RBC) [Entitic vol] 88.7 fL Normal 80.0-100.0 [facility] [facility] Comment on above: Performed By: #### 2 513113, 1551469, 05184467, 19051103, 1940394, 3270796, 6172954 ####[address] [place] [address] Platelet mean volume (Bld) [Entitic vol] 7.8 fL Normal 6.4-10.8 [facility] Comment on above: Performed By: #### 2 528621, 3838046, 62531001, 33837048, 4521915, 9497517, 7776216 ####[facility] [address] [place] [address] Platelets (Bld) [#/Vol] 225.0 E9/L Normal 150.0-500.0 [facility] Comment on above: Performed By: #### 2 977984, 2384629, 77211712, 21911365, 2828184, 1266745, 7474595 ####[facility] [address] [place] [address] RBC (Bld) [#/Vol] 4.4 E12/L Normal 4.3-5.9 [facility] Comment on above: Performed By: #### 2 632745, 7879877, 72533558, 46442800, 5969360, 0249040, 6551428 ####[address] [place] [address] WBC corrected for nucl RBC Auto (Bld) [#/Vol] 6.8 E9/L Normal 4.0-11.0 [facility] Comment on above: Performed By: #### 2 860911, 5613918, 59493774, 33835496, 4991987, 7039436, 8183983 ####[address] [address] CHEMISTRYOrdered By: SYSTEM SYSTEM on 05-21-2023 HCG.beta subunit Qn 338413 m[IU]/mL High 1 - 3 mIU/mL [facility] [...] 120 mL/min/1.73 m2 Normal >=59mL/min/ 1.73 m2 [facility] Chem S Globulin [...] Remisol Consent for Treatmenton Consent for Treatment [id number]:12 7 Normal [facility] HEMATOLOGYOrdered By: SYSTEM SYSTEM on 05-21-2023 [...] 39.0 % Normal 34.0 - 46.0 % FT HemeAutoSS Hemoglobin (Bld) [Mass/Vol] 13.3 g/dL Normal [...] Bilirubin.indirect [Mass or moles/Vol] UTC Abnormal 0.1-0.9 [facility] Comment on above: Result Comment: Resu lt verified by Discern Rule. Performed result UTC (Unable to Calculate) was sent as an Alpha code due the inability to calculate a valid numeric value. Performed By: #### 2 746434, 4831869, 10264695, 20887527, 6575609, 0109200, 5715029 ####[facility] [address] [place] [address] Albumin [Mass/Vol] 3.8 g/dL Normal 3.3-5.0 [facility] Comment on above: Performed By: #### 2 678571, 7851898, 16358258, 33368073, 8055388, 8436305, 0263353 ####[facility] [address] [place] [address] Albumin/Globulin (S) [Mass conc ratio] 1.2 Normal 1.1-2.2 [facility] Comment on above: Performed By: #### 2 896922, 8945662, 50035000, 22561753, 9169088, 3020893, 3461940 ####[facility] [address] [place] [address] ALP [Catalytic activity/Vol] 42 Int._Unit/L Normal 21-98 [facility] Comment on above: Performed By: #### 2 755498, 6492180, 13350251, 25476152, 6037655, 8018648, 1690601 ####[address] [place] [address] ALT No additional P-5'-P [Catalytic activity/Vol] 13 Int._Unit/L Normal 6-46 [facility] Comment on above: Performed By: #### 2 864455, 6335697, 39862663, 23324043, 3310263, 6342172, 0296197 ####[address] [address] AST [Catalytic activity/Vol] 14 Int._Unit/L Normal 5-43 [facility] Comment on above: Performed By: #### 2 084285, 8889305, 36766474, 66320123, 0516804, 7551954, 3941174 ####[address] [place] [address] Bilirubin [Mass/Vol] 0.5 mg/dL Normal 0.0-1.1 [facility] Comment on above: Performed By: #### 2 474254, 7062527, 03202253, 49609468, 7124837, 4005223, 3832938 ####[address] [place] [address] Globulin (S) [Mass/Vol] 3.1 g/dL Normal 1.4-4.0 [facility] Comment on above: Performed By: #### 2 101330, 1859207, 58911104, 26084510, 5392711, 8425222, 9311568 ####[facility] [address] [place] [address] Protein [Mass/Vol] 6.9 g/dL Normal 6.0-7.8 [facility] Comment on above: Performed By: #### 2 450081, 2022627, 49109915, 61998706, 4224890, 0547234, 2270733 ####[facility] [address] [place] [address] Bilirubin.direct [Mass/Vol] mg/dL Normal 0.1-0.4 [facility] Comment on above: Performed By: #### 2 411510, 7587424, 90787168, 39809601, 1409514, 7421544, 6120767 ####[facility] [address] [place] [address] Lipase Levelon 05-21-2023 Lipase [Catalytic activity/Vol] 31 U/L Normal 13-58 [facility] Comment on above: Performed By: #### 2 984454, 7987535, 52325913, 87182979, 7197698, 5193144, 8227169 ####[facility] [address] [place] [address] Troponin 0 Hr.on 05-21-2023 Troponin I.cardiac [Mass/Vol] 2.50 pg/mL Low 10.10-27.10 [facility] Comment on above: Result Comment: The 95% CI (Confidence Interval) PPV (Positive Predictive Value) for myocardial infarction in females is 38 pg/mL, in males 51 pg/mL. The results should be used in conjunction with clinical conditions of myocardial infarction.(Access High Sensitivity Troponin I Instructions For Use, Ziggy Regina, May 2018) Performed By: #### 2 117377, 6576381, 84431639, 66452727, 3530367, 8717182, 3094250 ####[facility] [address] [place] [address] URINALYSISOrdered By: Jose Miguel nelson on 05-21-2023 [...] Interpretation Code Negative [facility] UA Auto SS [place].plasma/[place] .RBC (Bld) [Mass ratio] 4-20 /HPF Normal [...] [facility] UA Auto SS Urobilinogen Qn (U) 0.5742301 {Rola'U}/dL Normal 0.0 - 1.0 EU/dL [facility] UA Auto SS WBC Auto Ql (U) Negative (05/21/23 10:17 PM) Normal Negative [facility] UA Auto SS WBC LM.HPF (Urine sed) [#/Area] 0-5 /HPF Normal 0-5/HPF [facility] UA Auto SS eGFRon 05-21-2023 GFR/1.73 sq M.predicted among non-blacks MDRD (S/P/Bld) [Vol rate/Area] 120 mL/min/1.73 m2 Normal >=59 [facility] Comment on above: Order Comment: Order added by Discern Expert. Result Comment: Precision Lens Grinder lucy kidney disease could be indicated at eGFR's of less than 60 mL/min/1.73m2. Kidney failure is indicated at less than 15 mL/min/1.73m2. Performed By: #### 2 678505, 6641972, 07229862, 39074635, 1599991, 2008080, 0078006 ####[facility] [address] [place] [address] PAP [id number] 05-03-2023 C. trachomatis rRNA MAHAD+probe Ql (Cvx) Negative Invalid Interpretation Code Negative [facility] Comment on above: Performed By: #### 3 [id number] ####[facility] [address] [place] [address] Cytology report Cyto stain Doc (Cvx/Vag) Note Invalid Interpretation Code [facility] Comment on above: Result Comment: TEST S RESULT FLAG UNITS REF RANGE LAB Clinician Provided Cytology InformationSource.............EndocervixNo. of containers..01 ThinPrep VialDIAGNOSIS: 01NEGATIVE FOR INTRAEPITHELIAL LESION OR MALIGNANCY.Specimen adequacy: 01Satisfactory for evaluation. Endocervical and/or squamous metaplasticcells (endocervical component) are present.Performed by: Eliana Shea Sheet Metal Assembler (ASCP). 01Note: Note 01The Pap smear is [...] High<-Panic Low,>-Panic High,A-Abnormal,AA-Critical Abnormal -----Performed at:[address] [facility] [address] [id number] Walton MD, Performed By: #### 3 [id number] ####[address] [address] N. gonorrhoeae rRNA MAHAD+probe Ql (Cvx) Negative Invalid Interpretation Code Negative [facility] Comment on above: Result Comment: Perf ormed at: [facility] [address] [id number] MD Anton HinsonPerformed at: =G [facility] [address] [id number] MD Anton Hinson Performed By: #### 3 [id number] ####[address] [place] [address] C Urineon 05-02-2023 Bacteria identified Cx Nom (U) Normal [facility] Comment on above: Performed By: #### 2 522774 ####[address] [place] [address] HIV Screen 4th Generation wR fxon 05-01-2023 HIV 1+2 Ab+HIV1 p24 Ag IA Ql Non-Reactive Invalid Interpretation Code Non Reactive [facility] Comment on above: Result Comment: HIV NegativeHIV-1/HIV-2 antibodies and HIV-1 p24 antigen were NOT detected.There is no laboratory evidence of HIV infection.Performed at: [id number] [place], [place] [id number] PhD Caroline [place] Performed By: #### 1 19061984, 34191815, 525700476, 2731834, 4611779 ####[facility] [address] [place] [address] Hep Bs Agon 05-01-2023 HBV surface Ag IA Ql Negative Invalid Interpretation Code Negative [facility] Comment on above: Result Comment: Perf ormed at: [address] [id number] PhD [facility] Performed By: #### 1 59601492, 49300655, 960521276, 8382863, 4696084 ####[facility] [address] [place] [address] RPR with Conf Rfxon 05-01-20 23 Reagin Ab RPR Ql (S) Non-Reactive Invalid Interpretation Code Non Reactive [facility] Comment on above: Result Comment: Perf ormed at: [address] [id number] PhD [facility] [place] Performed By: #### 1 32000733, 14172492, 511469929, 3408086, 6470911 ####[facility] [address] [place] [address] Rubella IgGon 05-01-2023 Rubella virus IgG Qn (S) [IU]/mL Low Immune >0.99 [facility] Comment on above: Result Comment: Non- immune <0.90Equivocal 0.90 - 0.99Immune >0.99Performed at: [address] [id number] PhD [facility] [place] Performed By: #### 1 37048929, 17941157, 039862159, 7724826, 3576151 ####[facility] [address] [place] [address] ABO/Rhon 04-30-2023 ABO/Rh Positive Invalid Interpretation Code [facility] Comment on above: Performed By: #### 2 520793, 52415873 ####[facility] [address] [place] [address] ABSCon 04-30-2023 ABSC Gel Interp Negative Normal [facility] Comment on above: Performed By: #### 2 555164, 57147514 ####[address] [place] [id number] BLOOD BANKOrdered By: Diamond Junior on 04-30-2023 ABO/Rh Interp Positive Invalid Interpretation Code [facility] BB Subsection ABSC Gel Interp Negative (04/30/23 9:30 AM) Normal [facility] BB Subsection BhCG Quanton 04-30-2023 [place] [address] m[IU]/mL High 1-3 [facility] Comment on above: Result Comment: GEST ATIONAL AGE HCG RANGE (mIU/mL) NON- <1-3 0.2-1 WEEKS 5-50 1-2 WEEKS 50-500 2-3 WEEKS 100-5,000 3-4 WEEKS 500-10,000 4-5 WEEKS 1,000-50,000 5-6 WEEKS 10,000-100,000 6-8 WEEKS 15,000-200,000 8-12 WEEKS 10,000-100,000 Performed By: #### 2 528326 ####[facility] [address] [place] [address] CBC w/Indiceson 04-30-2023 Erythrocyte distribution width (RBC) [Ratio] 13.7 % Normal 10.9-14.2 [facility] Comment on above: Performed By: #### 1 90100997, 70122180, 911661183, 9770109, 5876327 ####[facility] [address] [place] [address] Hematocrit (Bld) [Volume fraction] 40.7 % Normal 34.0-46.0 [facility] Comment on above: Performed By: #### 1 48170686, 91799719, 203639374, 9097705, 1298985 ####[facility] [address] [place] [address] Hemoglobin (Bld) [Mass/Vol] 13.8 g/dL Normal 12.0-16.0 [facility] Comment on above: Performed By: #### 1 71179296, 19302015, 248900937, 5413717, 9471818 ####[address] [place] [address] MCH (RBC) [Entitic mass] 30.5 pg Normal 27.0-34.0 [facility] Comment on above: Performed By: #### 1 70169554, 02285357, 797615690, 0877904, 6246694 ####[address] MCHC (RBC) [Mass/Vol] 33.9 g/dL Normal 31.4-36.0 [facility] Comment on above: Performed By: #### 1 98719536, 68511578, 575886066, 3337282, 2097826 ####[address] [address] MCV (RBC) [Entitic vol] 89.9 fL Normal 80.0-100.0 [facility] Comment on above: Performed By: #### 1 22667068, 50570238, 829368733, 9056535, 3712154 ####[address] [place] [address] Platelet mean volume (Bld) [Entitic vol] 8.2 fL Normal 6.4-10.8 [facility] Comment on above: Performed By: #### 1 94117656, 93096148, 330493021, 3584953, 8135397 ####[address] [place] [address] Platelets (Bld) [#/Vol] 279.0 E9/L Normal 150.0-500.0 [facility] Comment on above: Performed By: #### 1 96710845, 47477432, 505402462, 8646197, 9814476 ####[facility] [address] [place] [address] RBC (Bld) [#/Vol] 4.5 E12/L Normal 4.3-5.9 [facility] Comment on above: Performed By: #### 1 69364858, 00774514, 787196601, 1666979, 2302747 ####[facility] [address] [place] [address] WBC corrected for nucl RBC Auto (Bld) [#/Vol] 5.8 E9/L Normal 4.0-11.0 [facility] Comment on above: Performed By: #### 1 09588953, 30482796, 933561487, 6288061, 2644111 ####[facility] [address] [place] [address] CHEMISTRYOrdered By: Airphrame SYSTEM on 04-30-2023 [place] [address] m[IU]/mL High 1 - 3 mIU/mL [facility] Remisol Consent for Treatmenton 04-14 Consent for Treatment [id number]#[id number]:12 7 Normal [facility] HEMATOLOGYOrdered By: Temi Romero on 04-30-2023 [...] 33.9 g/dL Normal 31.4 - 36.0 gm/dL [facility] HemeAutoSS MCV (RBC) [Entitic vol] 89.9 fL Normal 80.0 - 100.0 fL [facility] HemeAutoSS Platelet mean volume (Bld) [Entitic vol] 8.2 fL Normal 6.4 - 10.8 fL [facility] HemeAutoSS Platelets (Bld) [#/Vol] 279.0 E9/L Normal 150.0 - 500.0 E9/L [facility] HemeAutoSS RBC (Bld) [#/Vol] 4.5 E12/L Normal 4.3 - 5.9 E12/L [facility] HemeAutoSS WBC corrected for nucl RBC Auto (Bld) [#/Vol] 5.8 E9/L Normal 4.0 - 11.0 E9/L [facility] HemeAutoSS PAP [id number] 04-30-2023 Collection Technique BRUSH-SPATULA Normal [facility] Comment on above: Performed By: #### 3 [id number] ####[facility] [address] [place] [address] Gynecological Body Site ENDOCERVIX Normal [facility] Comment on above: Performed By: #### 3 [id number] ####[facility] [address] [place] [address] Physician Orderon 04-30-2023 Physician Order [id number]#[id number]:1 27 Normal [facility] Physician Order [id number]#1.00CD:1 27 Normal [facility] BhCG Quanton 04-26-2023 [place] [address] m[IU]/mL High 1-3 [facility] Comment on above: Result Comment: GEST ATIONAL AGE HCG RANGE (mIU/mL) NON- <1-3 0.2-1 WEEKS 5-50 1-2 WEEKS 50-500 2-3 WEEKS 100-5,000 3-4 WEEKS 500-10,000 4-5 WEEKS 1,000-50,000 5-6 WEEKS 10,000-100,000 6-8 WEEKS 15,000-200,000 8-12 WEEKS 10,000-100,000 Performed By: #### 2 583619 ####[facility] [address] [place] [address] CHEMISTRYOrdered By: SYSTEM SYSTEM on 04-26-2023 [place] [address] m[IU]/mL High 1 - 3 mIU/mL [facility] Remisol Consent for Treatmenton 04-14 Consent for Treatment [id number]#[id number]:12 7 Normal [facility] Discharge Instructionson Discharge Instructions [id number]#[id number]:1 27 Normal [facility] ED Clinical Summaryon 2022 ED Clinical Summary Normal [facility] ED Note-Physicianon 04-26-20 ED Note-Physician Normal [facility] Comment on above: Result Comment: Elec tronically Signed By: Jos Ugalde PA-C\.br\Date and Time Signed: 04/26/23 10:59 EDT\.br\Electronically Co-Signed By: Laura Noel M.D.\.br\Date and Time Co-Signed: 04/26/23 11:01 EDT ED Patient Education Noteon 04-26-2023 ED Patient Education Note Normal [facility] ED Patient Summaryon 023 ED Patient Summary Normal [facility] UA With Cult Reflexon 2022 Bilirubin Ql (U) Negative Normal Negative [facility] Comment on above: Performed By: #### 1 [id number] ####[facility] [address] [place] [address] Clarity (U) CLEAR Normal Clear [facility] Comment on above: Performed By: #### 1 9601797 ####[facility] [address] [place] [address] Color (U) YELLOW Normal Yellow [facility] Comment on above: Performed By: #### 1 2305427 ####[address] [address] Crystals LM Ql (Urine sed) Present Normal [facility] Comment on above: Performed By: #### 1 9495116 ####[address] [address] Epithelial cells.squamous LM.HPF (Urine sed) [#/Area] 0-2 Normal 0-2 [facility] Comment on above: Performed By: #### 1 6963852 ####[address] [address] Glucose Test strip (U) [Mass/Vol] Negative Normal Negative [facility] Comment on above: Performed By: #### 1 8782615 ####[address] [address] Hemoglobin Ql (U) Negative Normal Negative [facility] Comment on above: Performed By: #### 1 8195461 ####[address] [address] Ketones (U) [Mass/Vol] Negative Normal Negative Fi [facility] Comment on above: Performed By: #### 1 0464082 ####[address] [address] [place].plasma/[place] .RBC (Bld) [Mass ratio] 0-3 Normal 0-3 [facility] Comment on above: Performed By: #### 1 5207449 ####[address] [address] Mucus Ql (Urine sed) 2+ Normal Fish [facility] Comment on above: Performed By: #### 1 6374558 ####[address] [address] Nitrite Ql (U) Negative Normal Negative [facility] Comment on above: Performed By: #### 1 4114755 ####[address] [address] pH (U) 8.5 [pH] Invalid Interpretation Code 5.0-9.0 [facility] Comment on above: Performed By: #### 1 5363980 ####[facility] [address] [place] [address] Protein (U) [Mass/Vol] Negative Normal Negative Fi [facility] Comment on above: Performed By: #### 1 7403658 ####[facility] [address] [place] [address] Specific gravity (U) [Rel density] 1.015 Invalid Interpretation Code 1.005-1.030 [facility] Comment on above: Performed By: #### 1 4321671 ####[facility] [address] [place] [address] Type of Urine collection method Clean Catch Normal [facility] Comment on above: Performed By: #### 1 3379335 ####[address] [address] Urobilinogen Qn (U) 1.0 {Rola'U}/dL Normal 0.0-1.0 [facility] Comment on above: Performed By: #### 1 2139332 ####[facility] [address] [place] [address] WBC Auto Ql (U) Negative Normal Negative [facility] Comment on above: Performed By: #### 1 1884130 ####[facility] [address] [place] [address] WBC LM.HPF (Urine sed) [#/Area] 0-5 Normal 0-5 [facility] Comment on above: Performed By: #### 1 2110300 ####[address] [address] URINALYSISOrdered By: An Lassiter on 04-26-2023 Bilirubin [...] AM) Normal Negative [facility] UA Auto SS [place].plasma/[place] .RBC (Bld) [Mass ratio] 0-3 /HPF Normal [...] Desc Clean Catch (04/26/23 9:15 AM) Normal [facility] UA Auto SS Urobilinogen Qn (U) 1.4713824 {Rola'U}/dL Normal 0.0 - 1.0 EU/dL [facility] UA Auto SS WBC Auto Ql (U) Negative (04/26/23 9:15 AM) Normal Negative [facility] UA Auto SS WBC LM.HPF (Urine sed) [#/Area] 0-5 /HPF Normal 0-5/HPF [facility] UA Auto SS US 1st Trimesteron 04-26-2023 US 1st Trimester Normal [facility] US Transvaginalon 04-26-2023 US Transvaginal Normal [facility] Coding Summary.on 02-02-2023 Coding Summary. Normal [facility] Auto Diffon 01-31-2023 Basophils/100 WBC (Bld) 0.3 % Normal 0.0-2.0 [facility] Comment on above: Order Comment: Order Added by Discern Expert. Performed By: #### 2 099241, 8502257, 71448238, 7419113 ####[address] [address] Basophils/Leukocytes Auto (Bld) [Pure # fraction] 0.0 E9/L Normal 0.0-0.2 [facility] Comment on above: Order Comment: Order Added by Discern Expert. Performed By: #### 2 310260, 0891707, 54215274, 3786741 ####[address] [address] Eosinophils/100 WBC (Bld) 2.8 % Normal 0.0-8.0 [facility] Comment on above: Order Comment: Order Added by Discern Expert. Performed By: #### 2 453316, 9996461, 15402991, 8276139 ####[address] [address] Eosinophils/Leukocytes Auto (Bld) [Pure # fraction] 0.1 E9/L Normal 0.0-0.5 [facility] Comment on above: Order Comment: Order Added by Discern Expert. Performed By: #### 2 737523, 5240151, 37778064, 3264253 ####[address] [address] Lymphocytes/100 WBC (Bld) 30.0 % Normal 14.0-50.0 [facility] Comment on above: Order Comment: Order Added by Discern Expert. Performed By: #### 2 459855, 2314910, 32371723, 8739671 ####[address] [address] Lymphocytes/Leukocytes Auto (Bld) [Pure # fraction] 1.5 E9/L Normal 1.0-4.0 [facility] Comment on above: Order Comment: Order Added by Discern Expert. Performed By: #### 2 613870, 8793775, 99661047, 0944759 ####[address] [place] [address] Monocytes/100 WBC (Bld) 7.0 % Normal 4.0-14.0 [facility] Comment on above: Order Comment: Order Added by Discern Expert. Performed By: #### 2 291599, 6883068, 21219732, 0925686 ####[address] [address] Monocytes/Leukocytes Auto (Bld) [Pure # fraction] 0.4 E9/L Normal 0.2-1.0 [facility] Comment on above: Order Comment: Order Added by Discern Expert. Performed By: #### 2 462614, 2112281, 53894792, 1523993 ####[address] [address] Neutrophils/100 WBC (Bld) 59.9 % Normal 36.0-75.0 [facility] Comment on above: Order Comment: Order Added by Discern Expert. Performed By: #### 2 507078, 4061843, 06704804, 8648774 ####[address] [address] Neutrophils/Leukocytes Auto (Bld) [Pure # fraction] 3.1 E9/L Normal 2.0-7.5 [facility] Comment on above: Order Comment: Order Added by Discern Expert. Performed By: #### 2 200974, 3962890, 28629932, 3285246 ####[address] [address] B hCG Qualon 01-31-2023 Beta hCG Ql Negative Normal [facility] Comment on above: Performed By: #### 2 6743413, 66268506 ####[address] [address] BMPon 01-31-2023 Creatinine [Mass/Vol] 0.8 mg/dL Normal 0.5-1.3 [facility] Comment on above: Performed By: #### 2 810936, 5124378, 11086751, 6231839 ####[facility] [address] [place] [address] Urea nitrogen [Mass/Vol] 9 mg/dL Normal 5-21 [facility] Comment on above: Performed By: #### 2 495682, 0849505, 90954358, 6155502 ####[facility] [address] [place] [address] Urea nitrogen/Creatinine [Mass ratio] 11 No Units Normal 10-20 [facility] Comment on above: Performed By: #### 2 553275, 6084954, 91842304, 7727249 ####[facility] [address] [place] [address] Anion gap [Moles/Vol] 12 mmol/L Normal 6-16 [facility] Comment on above: Performed By: #### 2 944785, 0261239, 66349427, 2516469 ####[facility] [address] [place] [address] Calcium [Mass/Vol] 9.1 mg/dL Normal 8.9-11.1 [facility] Comment on above: Performed By: #### 2 751713, 7315012, 10006390, 8412496 ####[facility] [address] [place] [address] Chloride [Moles/Vol] 104 mmol/L Normal 101-111 [facility] Comment on above: Performed By: #### 2 688755, 2608628, 49227319, 7430883 ####[facility] [address] [place] [address] CO2 [Moles/Vol] 23 mmol/L Normal 21-31 [facility] Comment on above: Performed By: #### 2 232408, 2916033, 04274712, 5337790 ####[facility] [address] [place] [address] Glucose [Mass/Vol] 84 mg/dL Normal 55-199 [facility] Comment on above: Result Comment: If t his glucose result represents a fasting glucose, interpretation should refer to the following reference range: 55-99 mg/dL Performed By: #### 2 742776, 5058444, 18988231, 5725493 ####[facility] [address] [place] [address] Potassium [Moles/Vol] 3.5 mmol/L Normal 3.5-5.3 [facility] Comment on above: Performed By: #### 2 327272, 7214323, 63933708, 2149169 ####[address] [address] Sodium [Moles/Vol] 135 mmol/L Normal 135-145 [facility] Comment on above: Performed By: #### 2 635887, 9990832, 35076025, 0100626 ####[address] [address] CBC w/ Auto Diffon Erythrocyte distribution width (RBC) [Ratio] 12.9 % Normal 10.9-14.2 [facility] Comment on above: Performed By: #### 2 883792, 4822144, 16938813, 8019908 ####[address] [address] Hematocrit (Bld) [Volume fraction] 46.4 % High 34.0-46.0 [facility] Comment on above: Performed By: #### 2 509339, 8214055, 81569862, 1351502 ####[address] [address] Hemoglobin (Bld) [Mass/Vol] 15.0 g/dL Normal 12.0-16.0 [facility] Comment on above: Performed By: #### 2 273202, 7708657, 21679826, 8244333 ####[address] [address] MCH (RBC) [Entitic mass] 28.6 pg Normal 27.0-34.0 [facility] Comment on above: Performed By: #### 2 304064, 2286446, 43246936, 2249135 ####[address] [address] MCHC (RBC) [Mass/Vol] 32.3 g/dL Normal 31.4-36.0 [facility] Comment on above: Performed By: #### 2 296012, 2272864, 22158639, 1651966 ####[place] [address]57 MCV (RBC) [Entitic vol] 88.5 fL Normal 80.0-100.0 [facility] Comment on above: Performed By: #### 2 211559, 4657677, 28024357, 0362004 ####[place] 6[address]1757 Platelet mean volume (Bld) [Entitic vol] 7.9 fL Normal 6.4-10.8 [facility] Comment on above: Performed By: #### 2 786342, 2268026, 50877805, 0422977 ####[place] [address]1757 Platelets (Bld) [#/Vol] 300.0 E9/L Normal 150.0-500.0 [facility] Comment on above: Performed By: #### 2 841464, 3698912, 01772306, 1147782 ####[address] [address] RBC (Bld) [#/Vol] 5.2 E12/L Normal 4.3-5.9 [facility] Comment on above: Performed By: #### 2 124120, 4972207, 45872957, 8585816 ####[address] [address] WBC corrected for nucl RBC Auto (Bld) [#/Vol] 5.1 E9/L Normal 4.0-11.0 [facility] Comment on above: Performed By: #### 2 962274, 0563037, 76236335, 4885663 ####[address] [place] [address] CHEMISTRYOrdered By: SYSTEM SYSTEM on 01-31-2023 Anion [...] rate/Area] mL/min/1.73 m2 Normal >=59mL/min/ 1.73 m2 [facility] Chem S GFR/1.73 sq M.predicted among non-blacks MDRD (S/P/Bld) [Vol rate/Area] mL/min/1.73 m2 Normal >=59mL/min/ 1.73 m2 [facility] Chem S Glucose [...] Coag CTA Headon 01-31-2023 CTA Head Normal [facility] Consent for Treatmenton 01-13 Consent for Treatment [id number]#1.00CD:12 7 Normal [facility] Discharge Instructionson Discharge Instructions [id number]#1.00CD:1 27 Normal [facility] ED Clinical Summaryon 2022 ED Clinical Summary Normal [facility] ED Note-Physicianon 02-01-20 ED Note-Physician Normal [facility] Comment on above: Result Comment: Elec tronically Signed By: Kristian Guillermo DO.br\Date and Time Signed: 01/31/23 14:00 EDT ED Patient Education Noteon 01-31-2023 ED Patient Education Note Normal [facility] ED Patient Summaryon 023 ED Patient Summary Normal [facility] HEMATOLOGYOrdered By: SYSTEM SYSTEM on 01-31-2023 [...] - 7.5 E9/L FT HemeAutoSS HEMATOLOGYOrdered By: Janet Reyes on 01-31-2023 [...] Coag (PPP) [Time] 31.3 second(s) Normal 25.1-36.5 [facility] Comment on above: Result Comment: Para [...] the same coagulation reagent and instrumentation as [facility]. Currently there are no coagulation studies available worldwide for children to 14 days, and no normal ranges. Heparin therapeutic range (represented by Anti-Factor Xa activity of 0.2 - 0.4 U/mL) corresponds to PTT of 56.6 - 109.0 sec. Performed By: #### 2 6303253, 33768550 ####[facility] [address] [place] [address] INR Coag (PPP) [Relative time] 1.1 {INR} Invalid Interpretation Code [facility] Comment on above: Result Comment: INR results are specifically intended to assess patients stabilized on long-term Anticoagulation therapy suggested INR?s ?Less Intensive Anticoagulation? 2.0 ? 3.0Conventional Range 3.0 ? 4.5 Performed By: #### 2 4663889, 63666945 ####[facility] [address] [place] [address] PT Coag (PPP) [Time] 12.3 second(s) Normal 9.4-12.5 [facility] Comment on above: Result Comment: 15 [...] the same coagulation reagent and instrumentation as [facility]. Currently there are no coagulation studies available worldwide for children to 14 days, and no normal ranges. Performed By: #### 2 1383219, 57057946 ####[facility] [address] [place] [address] Pre-Arrival Noteon 04-19-202 3 Pre-Arrival Note Normal [facility] SEROLOGYOrdered By: Nova Mccarty on 01-31-2023 Beta hCG Ql Negative (01/31/23 10:14 AM) Normal [facility] Man Sero eGFRon 01-31-2023 GFR/1.73 sq M.predicted among blacks MDRD (S/P/Bld) [Vol rate/Area] mL/min/{1.73_m2} Normal >=59 [facility] Comment on above: Order Comment: Order added by Discern Expert. Result Comment: eGFR is race adjusted. AA=. Performed By: #### 2 094965, 0284964, 46124716, 6493371 ####[facility] [address] [place] [address] GFR/1.73 sq M.predicted among non-blacks MDRD (S/P/Bld) [Vol rate/Area] mL/min/{1.73_m2} Normal >=59 [facility] Comment on above: Order Comment: Order added by Discern Expert. Result Comment: Precision [employer]ens Grinder lucy kidney disease could be indicated at eGFR's of less than 60 mL/min/1.73m2. Kidney failure is indicated at less than 15 mL/min/1.73m2. Performed By: #### 2 369265, 2523875, 64925489, 5648944 ####[facility] [address] [place] [address] Nursing Assessmenton 023 Nursing Assessment [id number]#1.00CD:1 27 Normal [facility] Coding Summary.on 10-02-2022 Coding Summary. Normal [facility] Coding Summary. Normal [facility] Delivery Summaryon 2 Delivery Summary Normal [facility] Comment on above: Result Comment: Elec tronically Signed By: Fabiana MARION, Luis Carlos Byrd\.br\Date and Time Signed: 09/29/22 09:25 EST General Message Officeon General Message Office Normal [facility] Insurance Correspondence Off iceon 09-28-2022 Insurance Correspondence Office [id number]#1.00CD:1 27 Normal [facility] Discharge Instructionson Discharge Instructions [id number]#1.00CD:12 7 Normal [facility] Inpatient Clinical Summaryon 09-27-2022 Inpatient Clinical Summary Normal [facility] Inpatient Patient Summaryon 09-27-2022 Inpatient Patient Summary Normal [facility] CBC w/Indiceson 09-26-2022 Erythrocyte distribution width (RBC) [Ratio] 13.1 % Normal 10.9-14.2 [facility] Comment on above: Performed By: #### 2 379874 ####[facility] [address] [place] [address] Hematocrit (Bld) [Volume fraction] 32.1 % Low 34.0-46.0 [facility] Comment on above: Performed By: #### 2 178206 ####[facility] [address] [place] [address] Hemoglobin (Bld) [Mass/Vol] 11.1 g/dL Low 12.0-16.0 [facility] Comment on above: Performed By: #### 2 422311 ####[facility] [address] [place] [address] MCH (RBC) [Entitic mass] 30.9 pg Normal 27.0-34.0 [facility] Comment on above: Performed By: #### 2 712178 ####[facility] [address] [place] [address] MCHC (RBC) [Mass/Vol] 34.5 g/dL Normal 31.4-36.0 [facility] Comment on above: Performed By: #### 2 761013 ####[facility] [address] [place] [address] MCV (RBC) [Entitic vol] 89.7 fL Normal 80.0-100.0 [facility] Comment on above: Performed By: #### 2 112119 ####[facility] [address] [place] [address] Platelet mean volume (Bld) [Entitic vol] 10.1 fL Normal 6.4-10.8 [facility] Comment on above: Performed By: #### 2 693799 ####[facility] [address] [place] [address] Platelets (Bld) [#/Vol] 204.0 E9/L Normal 150.0-500.0 [facility] Comment on above: Performed By: #### 2 388669 ####[address] [address] RBC (Bld) [#/Vol] 3.6 E12/L Low 4.3-5.9 [facility] Comment on above: Performed By: #### 2 890824 ####[address] [address] WBC corrected for nucl RBC Auto (Bld) [#/Vol] 23.2 E9/L High 4.0-11.0 [facility] Comment on above: Performed By: #### 2 052101 ####[address] [address] Nursing Assessmenton 022 Nursing Assessment [id number]#1.00CD:12 7 Normal [facility] Progress Note-Physicianon Progress Note-Physician Normal [facility] Comment on above: Result Comment: Elec tronically Signed By: Fabiana MARION, Luis Carlos Byrd\.br\Date and Time Signed: 09/26/22 08:19 EST Coding Summary.on 09-25-2022 Coding Summary. Normal [facility] Coding Summary. Normal [facility] Consenton 09-25-2022 Consent [id number]#1.00CD:1 27 Normal [facility] Consent for Anesthesiaon Consent for Anesthesia [id number]#1.00CD:12 7 Normal [facility] Discharge Instructionson Discharge Instructions [id number]#1.00CD:1 27 Normal [facility] Help Me Grow Referralon 09-14 Help Me Grow Referral [id number]#1.00CD:12 7 Normal [facility] Recordson Records [id number]#1.00CD:12 7 Normal [facility] Progress Note-Physicianon Progress Note-Physician [facility] Comment on above: Result Comment: Elec tronically Signed By: Jimmy Corcoran Jr., DO\.br\Date and Time Signed: 09/25/22 08:31 EST Progress Note-Physician Normal [facility] Comment on above: Result Comment: Elec tronically Signed By: Jimmy Corcoran Jr., DO\.br\Date and Time Signed: 09/25/22 08:31 EST UA With Cult Reflexon 2021 Bilirubin Ql (U) Negative Normal Negative [facility] Comment on above: Order Comment: Urina ry Catheter Insertion triggered Urinalysis With Culture Reflex order by discern. Performed By: #### 1 [id number] ####[facility] [address] [place] [address] Clarity (U) CLEAR Normal Clear [facility] Comment on above: Order Comment: Urina ry Catheter Insertion triggered Urinalysis With Culture Reflex order by discern. Performed By: #### 1 2322395 ####[facility] [address] [place] [address] Color (U) YELLOW Normal Yellow [facility] Comment on above: Order Comment: Urina ry Catheter Insertion triggered Urinalysis With Culture Reflex order by discern. Performed By: #### 1 5412820 ####[facility] [address] [place] [address] Epithelial cells.squamous LM.HPF (Urine sed) [#/Area] 0-2 Normal 0-2 [facility] Comment on above: Order Comment: Urina ry Catheter Insertion triggered Urinalysis With Culture Reflex order by discern. Performed By: #### 1 5135735 ####[facility] [address] [place] [address] Glucose Test strip (U) [Mass/Vol] Negative Normal Negative [facility] Comment on above: Order Comment: Urina ry Catheter Insertion triggered Urinalysis With Culture Reflex order by discern. Performed By: #### 1 9992408 ####[facility] [address] [place] [address] Hemoglobin Ql (U) Negative Normal Negative [facility] Comment on above: Order Comment: Urina ry Catheter Insertion triggered Urinalysis With Culture Reflex order by discern. Performed By: #### 1 6366763 ####[facility] [address] [place] [address] Ketones (U) [Mass/Vol] Negative Normal Negative [facility] Comment on above: Order Comment: Urina ry Catheter Insertion triggered Urinalysis With Culture Reflex order by discern. Performed By: #### 1 5740459 ####[facility] [address] [place] [address] [place].plasma/[place] .RBC (Bld) [Mass ratio] 0-3 Normal 0-3 [facility] Comment on above: Order Comment: Urina ry Catheter Insertion triggered Urinalysis With Culture Reflex order by discern. Performed By: #### 1 9052660 ####[facility] [address] [place] [address] Nitrite Ql (U) Negative Normal Negative [facility] Comment on above: Order Comment: Urina ry Catheter Insertion triggered Urinalysis With Culture Reflex order by discern. Performed By: #### 1 3940609 ####[facility] [address] [place] [address] pH (U) 7.0 [pH] Invalid Interpretation Code 5.0-9.0 [facility] Comment on above: Order Comment: Urina ry Catheter Insertion triggered Urinalysis With Culture Reflex order by discern. Performed By: #### 1 3828527 ####[facility] [address] [place] [address] Protein (U) [Mass/Vol] Negative Normal Negative [facility] Comment on above: Order Comment: Urina ry Catheter Insertion triggered Urinalysis With Culture Reflex order by discern. Performed By: #### 1 2808906 ####[place] [address] Specific gravity (U) [Rel density] <=1.005 Invalid Interpretation Code 1.005-1.030 [facility] Comment on above: Order Comment: Urina ry Catheter Insertion triggered Urinalysis With Culture Reflex order by discern. Performed By: #### 1 0172944 ####[place] [address] Type of Urine collection method Vyas Normal [facility] Comment on above: Order Comment: Urina ry Catheter Insertion triggered Urinalysis With Culture Reflex order by discern. Performed By: #### 1 3366564 ####[place] [address] Urobilinogen Qn (U) 0.2 {Rola'U}/dL Normal 0.0-1.0 [facility] Comment on above: Order Comment: Urina ry Catheter Insertion triggered Urinalysis With Culture Reflex order by discern. Performed By: #### 1 3390809 ####[place] [address]1757 WBC Auto Ql (U) Negative Normal Negative [facility] Comment on above: Order Comment: Urina ry Catheter Insertion triggered Urinalysis With Culture Reflex order by discern. Performed By: #### 1 1047760 ####[place] 6[address]1757 WBC LM.HPF (Urine sed) [#/Area] 0-5 Normal 0-5 [facility] Comment on above: Order Comment: Urina ry Catheter Insertion triggered Urinalysis With Culture Reflex order by discern. Performed By: #### 1 0084608 ####[address] [address] Bilirubin Ql (U) Negative Normal Negative [facility] Comment on above: Performed By: #### 1 1844810 ####[facility] [address] [place] [address] Clarity (U) CLEAR Normal Clear [facility] Comment on above: Performed By: #### 1 8608743 ####[facility] [address] [place] [address] Color (U) YELLOW Normal Yellow [facility] Comment on above: Performed By: #### 1 3477195 ####[facility] [address] [place] [address] Epithelial cells.squamous LM.HPF (Urine sed) [#/Area] 0-2 Normal 0-2 [facility] Comment on above: Performed By: #### 1 5006068 ####[facility] [address] [place] [address] Glucose Test strip (U) [Mass/Vol] Negative Normal Negative [facility] Comment on above: Performed By: #### 1 3397703 ####[facility] [address] [place] [address] Hemoglobin Ql (U) Negative Normal Negative [facility] Comment on above: Performed By: #### 1 6540462 ####[facility] [address] [place] [address] Ketones (U) [Mass/Vol] Negative Normal Negative [facility] Comment on above: Performed By: #### 1 2486879 ####[facility] [address] [place] [address] [place].plasma/[place] .RBC (Bld) [Mass ratio] 0-3 Normal 0-3 [facility] Comment on above: Performed By: #### 1 7392215 ####[facility] [address] [place] [address] Nitrite Ql (U) Negative Normal Negative [facility] Comment on above: Performed By: #### 1 8012560 ####[facility] [address] [place] [address] pH (U) 6.0 [pH] Invalid Interpretation Code 5.0-9.0 [facility] Comment on above: Performed By: #### 1 1893120 ####[place] [address]1757 Protein (U) [Mass/Vol] Negative Normal Negative [facility] Comment on above: Performed By: #### 1 1648957 ####[place] 6[address]1757 Specific gravity (U) [Rel density] <=1.005 Invalid Interpretation Code 1.005-1.030 [facility] Comment on above: Performed By: #### 1 4510631 ####[place] [address] Type of Urine collection method Clean Catch Normal [facility] Comment on above: Performed By: #### 1 7974398 ####[place] [address]57 Urobilinogen Qn (U) 0.2 {Rola'U}/dL Normal 0.0-1.0 [facility] Comment on above: Performed By: #### 1 8059396 ####[place] [address]57 WBC Auto Ql (U) Negative Normal Negative [facility] Comment on above: Performed By: #### 1 3231906 ####[place] [address]1757 WBC LM.HPF (Urine sed) [#/Area] 0-5 Normal 0-5 [facility] Comment on above: Performed By: #### 1 3284245 ####[address] [address] Vaccinationson 09-25-2022 Vaccinations [id number]#1.00CD:1 27 Normal [facility] Vaccinations [id number]#1.00CD:1 27 Normal [facility] ABO/Rhon 09-24-2022 ABO/Rh Positive Invalid Interpretation Code [facility] Comment on above: Performed By: #### 1 4715068, 85248113, 08194417, 7063141 ####[facility] [address] [place] [address] ABO/Rh History Checkon 09-24 ABO/Rh History Check Verified Hx Blood Type Normal [facility] Comment on above: Performed By: #### 1 2322407, 05621752, 46212341, 8819954 ####[facility] [address] [place] [address] ABSCon 09-24-2022 ABSC Gel Interp Negative Normal [facility] Comment on above: Performed By: #### 1 7855758, 19690769, 38901810, 1072096 ####[facility] [address] [place] [address] Blood Bank ID#on 09-24-2022 BBID# [id number] Invalid Interpretation Code [facility] Comment on above: Performed By: #### 1 7267644, 24936131, 99760325, 4115804 ####[facility] [address] [place] [address] CBC w/Indiceson 09-24-2022 Erythrocyte distribution width (RBC) [Ratio] 13.0 % Normal 10.9-14.2 [facility] Comment on above: Performed By: #### 2 390910 ####[facility] [address] [place] [address] Hematocrit (Bld) [Volume fraction] 38.0 % Normal 34.0-46.0 [facility] Comment on above: Performed By: #### 2 632800 ####[facility] [address] [place] [address] Hemoglobin (Bld) [Mass/Vol] 12.8 g/dL Normal 12.0-16.0 [facility] Comment on above: Performed By: #### 2 094908 ####[facility] [address] [place] [address] MCH (RBC) [Entitic mass] 31.3 pg Normal 27.0-34.0 [facility] Comment on above: Performed By: #### 2 920492 ####[address] [address] MCHC (RBC) [Mass/Vol] 33.7 g/dL Normal 31.4-36.0 [facility] Comment on above: Performed By: #### 2 475898 ####[address] [address] MCV (RBC) [Entitic vol] 92.9 fL Normal 80.0-100.0 [facility] Comment on above: Performed By: #### 2 405326 ####[address] [address] Platelet mean volume (Bld) [Entitic vol] 9.8 fL Normal 6.4-10.8 [facility] Comment on above: Performed By: #### 2 563142 ####[address] [address] Platelets (Bld) [#/Vol] 238.0 E9/L Normal 150.0-500.0 [facility] Comment on above: Performed By: #### 2 016794 ####[address] [address] RBC (Bld) [#/Vol] 4.1 E12/L Low 4.3-5.9 [facility] Comment on above: Performed By: #### 2 535730 ####[address] [address] WBC corrected for nucl RBC Auto (Bld) [#/Vol] 12.8 E9/L High 4.0-11.0 [facility] Comment on above: Performed By: #### 2 905653 ####[address] [address] Consent for Treatmenton 09-14 Consent for Treatment [id number]#1.00CD:12 7 [facility] Consent for Treatment [id number]#1.00CD:1 27 [facility] Consent for Treatmenton Consent for Treatment [id number]#1.00CD:12 7 [facility] Discharge Instructionson Discharge Instructions [id number]#1.00CD:12 7 [facility] Inpatient Clinical Summaryon 09-22-2022 Inpatient Clinical Summary [facility] Inpatient Patient Summaryon 09-22-2022 Inpatient Patient Summary [facility] Insurance Correspondence Off ice09-22-2022 Insurance Correspondence Office [id number]#1.00CD: 127 [facility] Nursing Assessmenton 022 Nursing Assessment [id number]#1.00CD:1 27 [facility] Nursing Assessment [id number]#1.00CD:12 7 [facility] Discharge Instructionson Discharge Instructions [id number]#1.00CD:127 [facility] Inpatient Clinical Summaryon 09-20-2022 Inpatient Clinical Summary [facility] Inpatient Patient Summaryon 09-20-2022 Inpatient Patient Summary [facility] Insurance Correspondence Off iceon 09-20-2022 Insurance Correspondence Office [id number]#1.00CD:127 [facility] Consent for Treatmenton Consent for Treatment [id number]#1.00CD:12 7 [facility] Discharge Instructionson Discharge Instructions [id number]#1.00CD:1 27 Normal [facility] Inpatient Clinical Summaryon 09-19-2022 Inpatient Clinical Summary Normal [facility] Inpatient Patient Summaryon 09-19-2022 Inpatient Patient Summary Normal [facility] Insurance Correspondenceon 1 11-20-2021 Insurance Correspondence [id number]#1.00CD:1 27 Normal [facility] UA With Cult Reflexon 2021 Bilirubin Ql (U) Negative Normal Negative [facility] Comment on above: Performed By: #### 1 [id number] ####[facility] [address] [place] [address] Clarity (U) CLEAR Normal Clear [facility] Comment on above: Performed By: #### 1 [id number] ####[facility] [address] [place] [address] Color (U) YELLOW Normal Yellow [facility] Comment on above: Performed By: #### 1 0600918 ####[facility] [address] [place] [address] Epithelial cells.squamous LM.HPF (Urine sed) [#/Area] 0-2 Normal 0-2 [facility] Comment on above: Performed By: #### 1 2619698 ####[facility] [address] [place] [address] Glucose Test strip (U) [Mass/Vol] Negative Normal Negative [facility] Comment on above: Performed By: #### 1 8923945 ####[facility] [address] [place] [address] Hemoglobin Ql (U) Negative Normal Negative [facility] Comment on above: Performed By: #### 1 9624327 ####[facility] [address] [place] [address] Ketones (U) [Mass/Vol] Negative Normal Negative Fi [facility] Comment on above: Performed By: #### 1 0817793 ####[place] [address] [place].plasma/[place] .RBC (Bld) [Mass ratio] 0-3 Normal 0-3 [facility] Comment on above: Performed By: #### 1 7384755 ####[place] [address] Nitrite Ql (U) Negative Normal Negative [facility] Comment on above: Performed By: #### 1 9849675 ####[place] [address] pH (U) 7.0 [pH] Invalid Interpretation Code 5.0-9.0 [facility] Comment on above: Performed By: #### 1 8548035 ####[place] [address] Protein (U) [Mass/Vol] Negative Normal Negative [facility] Comment on above: Performed By: #### 1 2440961 ####[place] [address] Specific gravity (U) [Rel density] <=1.005 Invalid Interpretation Code 1.005-1.030 [facility] Comment on above: Performed By: #### 1 8899154 ####[place] [address] Type of Urine collection method Clean Catch Normal [facility] Comment on above: Performed By: #### 1 2458119 ####[place] [address]57 Urobilinogen Qn (U) 0.2 {Rola'U}/dL Normal 0.0-1.0 [facility] Comment on above: Performed By: #### 1 6738916 ####[address] [address] WBC Auto Ql (U) Negative Normal Negative [facility] Comment on above: Performed By: #### 1 7722663 ####[address] [address] WBC LM.HPF (Urine sed) [#/Area] 0-5 Normal 0-5 [facility] Comment on above: Performed By: #### 1 7632838 ####[facility] [address] [place] [address] URINALYSISOrdered By: Jeanette Castle on 09-19-2022 Bilirubin [...] AM) Normal Negative [facility] UA Auto SS [place].plasma/[place] .RBC (Bld) [Mass ratio] 0-3 /HPF Normal [...] [facility] UA Auto SS Urobilinogen Qn (U) 0.4905536 {Rola'U}/dL Normal 0.0 - 1.0 EU/dL [facility] UA Auto SS WBC Auto Ql (U) Negative (09/19/22 1:44 AM) Normal Negative [facility] UA Auto SS WBC LM.HPF (Urine sed) [#/Area] 0-5 /HPF Normal 0-5/HPF [facility] UA Auto SS Coding Summary.on 09-18-2022 Coding Summary. Normal [facility] Nursing Assessmenton Nursing Assessment [id number]#1.00CD:12 7 Normal [facility] Coding Summary.on 09-15-2022 Coding Summary. Normal [facility] Coding Summary.on 09-14-2022 Coding Summary. Normal [facility] Consent for Treatmenton Consent for Treatment [id number]#1.00CD:12 7 Normal [facility] Consent for Treatment [id number]#1.00CD:12 7 Normal [facility] Discharge Instructionson Discharge Instructions [id number]#1.00CD:12 7 Normal [facility] Inpatient Clinical Summaryon 09-14-2022 Inpatient Clinical Summary Normal [facility] Inpatient Patient Summaryon 09-14-2022 Inpatient Patient Summary Normal [facility] Insurance Correspondence Off iceon 09-14-2022 Insurance Correspondence Office [id number]#1.00CD:12 7 Normal [facility] Nursing Assessmenton Nursing Assessment [id number]#1.00CD:1 27 Normal [facility] UA With Cult Reflexon 2021 Bacteria LM Ql (Urine sed) TRACE Normal Trace [facility] Comment on above: Performed By: #### 1 [id number] ####[facility] [address] [place] [address] Bilirubin Ql (U) Negative Normal Negative [facility] Comment on above: Performed By: #### 1 5339715 ####[facility] [address] [place] [address] Clarity (U) CLEAR Normal Clear [facility] Comment on above: Performed By: #### 1 6378512 ####[facility] [address] [place] [address] Color (U) YELLOW Normal Yellow [facility] Comment on above: Performed By: #### 1 3005007 ####[facility] [address] [place] [address] Crystals LM Ql (Urine sed) Present Normal [facility] Comment on above: Performed By: #### 1 8084544 ####[facility] [address] [place] [address] Epithelial cells.squamous LM.HPF (Urine sed) [#/Area] 0-2 Normal 0-2 [facility] Comment on above: Performed By: #### 1 7439936 ####[facility] [address] [place] [address] Glucose Test strip (U) [Mass/Vol] Negative Normal Negative [facility] Comment on above: Performed By: #### 1 1875328 ####[facility] [address] [place] [address] Hemoglobin Ql (U) Negative Normal Negative [facility] Comment on above: Performed By: #### 1 8500251 ####[facility] [address] [place] [address] Ketones (U) [Mass/Vol] Negative Normal Negative Fi [facility] Comment on above: Performed By: #### 1 6023293 ####[facility] [address] [place] [address] [place].plasma/[place] .RBC (Bld) [Mass ratio] 0-3 Normal 0-3 [facility] Comment on above: Performed By: #### 1 0701529 ####[facility] [address] [place] [address] Mucus Ql (Urine sed) TRACE Normal [facility] Comment on above: Performed By: #### 1 6039352 ####[facility] [address] [place] [address] Nitrite Ql (U) Negative Normal Negative [facility] Comment on above: Performed By: #### 1 0433860 ####[facility] [address] [place] [address] pH (U) 6.0 [pH] Invalid Interpretation Code 5.0-9.0 [facility] Comment on above: Performed By: #### 1 1324919 ####[address] [address] Protein (U) [Mass/Vol] Negative Normal Negative [facility] Comment on above: Performed By: #### 1 9360797 ####[place] [address] Specific gravity (U) [Rel density] <=1.005 Invalid Interpretation Code 1.005-1.030 [facility] Comment on above: Performed By: #### 1 1707033 ####[place] [address] Type of Urine collection method Random Urine Normal [facility] Comment on above: Performed By: #### 1 7672355 ####[address] [address] Urobilinogen Qn (U) 0.2 {Rola'U}/dL Normal 0.0-1.0 [facility] Comment on above: Performed By: #### 1 5082192 ####[address] [address] WBC Auto Ql (U) TRACE Abnormal Negative [facility] Comment on above: Performed By: #### 1 9695921 ####[address] [address] WBC LM.HPF (Urine sed) [#/Area] 0-5 Normal 0-5 [facility] Comment on above: Performed By: #### 1 1322125 ####[address] [address] URINALYSISOrdered By: An Lassiter on 09-14-2022 Bacteria [...] AM) Normal Negative [facility] UA Auto SS [place].plasma/[place] .RBC (Bld) [Mass ratio] 0-3 /HPF Normal [...] [facility] UA Auto SS Urobilinogen Qn (U) 0.2739221 {Rola'U}/dL Normal 0.0 - 1.0 EU/dL [facility] UA Auto SS WBC Auto Ql (U) Trace *ABN* (09/14/22 9:25 AM) Invalid Interpretation Code Negative [facility] UA Auto SS WBC LM.HPF (Urine sed) [#/Area] 0-5 /HPF Normal 0-5/HPF [facility] UA Auto SS Coding Summary.on 09-12-2022 Coding Summary. Normal [facility] Consent for Treatmenton 08-16 Consent for Treatment [id number]#1.00CD:12 7 Normal [facility] Discharge Instructionson Discharge Instructions [id number]#1.00CD:12 7 [facility] Discharge Instructions [id number]#1.00CD:1 27 Normal [facility] Inpatient Clinical Summaryon 09-12-2022 Inpatient Clinical Summary Normal [facility] Inpatient Patient Summaryon 09-12-2022 Inpatient Patient Summary Normal [facility] Insurance Correspondenceon 11-12-2021 Insurance Correspondence [id number]#1.00CD:12 7 [facility] Insurance Correspondence Off iceon 09-12-2022 Insurance Correspondence Office [id number]#1.00CD:1 27 [facility] Nursing Assessmenton Nursing Assessment [id number]#1.00CD:1 27 Normal [facility] UA With Cult Reflexon 2021 Bilirubin Ql (U) Negative Normal Negative [facility] Comment on above: Performed By: #### 1 [id number] ####[facility] [address] [place] [address] Clarity (U) CLEAR Normal Clear [facility] Comment on above: Performed By: #### 1 4642593 ####[facility] [address] [place] [address] Color (U) YELLOW Normal Yellow [facility] Comment on above: Performed By: #### 1 0941590 ####[facility] [address] [place] [address] Crystals LM Ql (Urine sed) Present Normal [facility] Comment on above: Performed By: #### 1 0862471 ####[place] [address] [place] [address] Epithelial cells.squamous LM.HPF (Urine sed) [#/Area] 3-4 Normal 0-2 [facility] Comment on above: Performed By: #### 1 9971097 ####[address] [address] Glucose Test strip (U) [Mass/Vol] Negative Normal Negative [facility] Comment on above: Performed By: #### 1 8768716 ####[address] [address] Hemoglobin Ql (U) Negative Normal Negative [facility] Comment on above: Performed By: #### 1 1991557 ####[address] [address] Ketones (U) [Mass/Vol] Negative Normal Negative [facility] Comment on above: Performed By: #### 1 6726419 ####[address] [address] [place].plasma/[place] .RBC (Bld) [Mass ratio] 0-3 Normal 0-3 [facility] Comment on above: Performed By: #### 1 5540534 ####[address] [address] Nitrite Ql (U) Negative Normal Negative [facility] Comment on above: Performed By: #### 1 2930024 ####[address] [address] pH (U) 6.0 [pH] Invalid Interpretation Code 5.0-9.0 [facility] Comment on above: Performed By: #### 1 6290762 ####[facility] [address] [place] [address] Protein (U) [Mass/Vol] Negative Normal Negative [facility] Comment on above: Performed By: #### 1 8133808 ####[facility] [address] [place] [address] Specific gravity (U) [Rel density] 1.010 Invalid Interpretation Code 1.005-1.030 [facility] Comment on above: Performed By: #### 1 2903324 ####[facility] [address] [place] [address] Type of Urine collection method Clean Catch Normal [facility] Comment on above: Performed By: #### 1 1039936 ####[facility] [address] [place] [address] Urobilinogen Qn (U) 0.2 {Rola'U}/dL Normal 0.0-1.0 [facility] Comment on above: Performed By: #### 1 5092330 ####[facility] [address] [place] [address] WBC Auto Ql (U) Negative Normal Negative [facility] Comment on above: Performed By: #### 1 7123553 ####[facility] [address] [place] [address] WBC LM.HPF (Urine sed) [#/Area] 0-5 Normal 0-5 [facility] Comment on above: Performed By: #### 1 7113270 ####[facility] [address] [place] [address] URINALYSISOrdered By: Jose Miguel nelson on 09-12-2022 [...] PM) Normal Negative [facility] UA Auto SS [place].plasma/[place] .RBC (Bld) [Mass ratio] 0-3 /HPF Normal [...] [facility] UA Auto SS Urobilinogen Qn (U) 0.0267453 {Rola'U}/dL Normal 0.0 - 1.0 EU/dL [facility] UA Auto SS WBC Auto Ql (U) Negative (09/12/22 8:15 PM) Normal Negative [facility] UA Auto SS WBC LM.HPF (Urine sed) [#/Area] 0-5 /HPF Normal 0-5/HPF [facility] UA Auto SS Coding Summary.on 09-11-2022 Coding Summary. Normal [facility] Consent for Treatmenton 08-16 Consent for Treatment [id number]#1.00CD:12 7 Normal [facility] Discharge Instructionson Discharge Instructions [id number]#1.00CD:1 27 Normal [facility] Inpatient Clinical Summaryon 09-08-2022 Inpatient Clinical Summary Normal [facility] Inpatient Patient Summaryon 09-08-2022 Inpatient Patient Summary Normal [facility] Coding Summary.on 09-06-2022 Coding Summary. Normal [facility] Discharge Instructionson Discharge Instructions [id number]#1.00CD:1 27 Normal [facility] ED Clinical Summaryon 2021 ED Clinical Summary Normal [facility] ED Note-Nursingon 09-06-2022 ED Note-Nursing pt given d/c instruc tions and educated on importance of follow up. pt educated on new medications. pt verbalized understanding of instructions and readiness for d/c. pt walked self ambulatory to waiting room in stable condition Normal [facility] ED Patient Education Noteon 09-06-2022 ED Patient Education Note Normal [facility] ED Patient Summaryon 022 ED Patient Summary Normal [facility] XR Chest Single Viewon 09-06 XR Chest Single View Normal [facility] Auto Diffon 09-05-2022 Basophils/100 WBC (Bld) 1.0 % Normal 0.0-2.0 [facility] Comment on above: Order Comment: Order Added by Discern Expert. Performed By: #### 2 956398, 40199403, 85703001, 4829259, 76596230, 13673367, 8974216 ####[facility] [address] [place] [address] Basophils/Leukocytes Auto (Bld) [Pure # fraction] 0.1 E9/L Normal 0.0-0.2 [facility] Comment on above: Order Comment: Order Added by Discern Expert. Performed By: #### 2 452447, 83061412, 26686360, 7438647, 50032029, 30822270, 8139458 ####[facility] [address] [place] [address] Eosinophils/100 WBC (Bld) 1.4 % Normal 0.0-8.0 [facility] Comment on above: Order Comment: Order Added by Discern Expert. Performed By: #### 2 748324, 27786800, 64257583, 5683003, 06842875, 04645408, 8266101 ####[place] [address] [place] [address] Eosinophils/Leukocytes Auto (Bld) [Pure # fraction] 0.2 E9/L Normal 0.0-0.5 [facility] Comment on above: Order Comment: Order Added by Discern Expert. Performed By: #### 2 964382, 17017899, 51412728, 0232017, 28598505, 84707508, 7407109 ####[address] [address] Lymphocytes/100 WBC (Bld) 18.8 % Normal 14.0-50.0 [facility] Comment on above: Order Comment: Order Added by Discern Expert. Performed By: #### 2 644646, 69732286, 48474761, 2690208, 59105000, 94922167, 0273892 ####[address] [address] Lymphocytes/Leukocytes Auto (Bld) [Pure # fraction] 2.0 E9/L Normal 1.0-4.0 [facility] Comment on above: Order Comment: Order Added by Discern Expert. Performed By: #### 2 226416, 29350057, 74236591, 8380229, 24075535, 70227147, 6433116 ####[address] [address] Monocytes/100 WBC (Bld) 6.8 % Normal 4.0-14.0 [facility] Comment on above: Order Comment: Order Added by Discern Expert. Performed By: #### 2 772872, 78248581, 11170626, 7863077, 68501669, 25034284, 5415778 ####[address] [address] Monocytes/Leukocytes Auto (Bld) [Pure # fraction] 0.7 E9/L Normal 0.2-1.0 [facility] Comment on above: Order Comment: Order Added by Discern Expert. Performed By: #### 2 562510, 32712715, 05769714, 8143464, 87202612, 10263025, 3698630 ####[facility] [address] [place] [address] Neutrophils/100 WBC (Bld) 72.0 % Normal 36.0-75.0 [facility] Comment on above: Order Comment: Order Added by Discern Expert. Performed By: #### 2 965516, 95979180, 50039904, 7290281, 32036993, 39548795, 1294153 ####[facility] [address] [place] [address] Neutrophils/Leukocytes Auto (Bld) [Pure # fraction] 7.8 E9/L High 2.0-7.5 [facility] Comment on above: Order Comment: Order Added by Discern Expert. Performed By: #### 2 198141, 26376444, 79589953, 4315058, 88404209, 83654469, 9156472 ####[facility] [address] [place] [address] BMP 09-05-2022 Creatinine [Mass/Vol] 0.7 mg/dL Normal 0.5-1.3 [facility] Comment on above: Performed By: #### 2 019958, 31338959, 59316052, 9548445, 30767778, 74582945, 6812046 ####[facility] [address] [place] [address] Urea nitrogen [Mass/Vol] 7 mg/dL Normal 5-21 [facility] Comment on above: Performed By: #### 2 128961, 44014621, 00621709, 4821757, 76055853, 58831477, 6619049 ####[place] [address] [place] [address] Urea nitrogen/Creatinine [Mass ratio] 10 No Units Normal 10-20 [facility] Comment on above: Performed By: #### 2 149357, 36011015, 00768621, 9289806, 88163397, 42252962, 4816306 ####[facility] [address] [place] [address] Anion gap [Moles/Vol] 10 mmol/L Normal 6-16 [facility] Comment on above: Performed By: #### 2 607479, 74465572, 37864907, 4685703, 69252987, 06234211, 4780202 ####[facility] [address] [place] [address] Calcium [Mass/Vol] 8.8 mg/dL Low 8.9-11.1 [facility] Comment on above: Performed By: #### 2 346278, 05688575, 20301927, 4925445, 06206674, 88453498, 7032709 ####[facility] [address] [place] [address] Chloride [Moles/Vol] 102 mmol/L Normal 101-111 [facility] Comment on above: Performed By: #### 2 077439, 24132589, 42046375, 3158544, 50532149, 95327961, 3198519 ####[facility] [address] [place] [address] CO2 [Moles/Vol] 22 mmol/L Normal 21-31 [facility] Comment on above: Performed By: #### 2 076715, 82023919, 51578912, 6880944, 38905960, 26399817, 3278070 ####[facility] [address] [place] [address] Glucose [Mass/Vol] 87 mg/dL Normal 55-199 [facility] Comment on above: Result Comment: If t his glucose result represents a fasting glucose, interpretation should refer to the following reference range: 55-99 mg/dL Performed By: #### 2 249807, 14470517, 74035033, 2626200, 77604902, 39259225, 2692304 ####[facility] [address] [place] [address] Potassium [Moles/Vol] 3.3 mmol/L Low 3.5-5.3 [facility] Comment on above: Performed By: #### 2 367481, 92421978, 15859226, 0991801, 33624310, 08223020, 8770129 ####[place] [address] [place] [address] Sodium [Moles/Vol] 131 mmol/L Low 135-145 [facility] Comment on above: Performed By: #### 2 734520, 06370554, 08038729, 2426109, 89724095, 17455726, 3422369 ####[facility] [address] [place] [address] BNPon 09-05-2022 Int Ctr BNP Pass Normal [facility] Comment on above: Performed By: #### 2 087743, 34230922, 98116231, 6050503, 10946276, 38847654, 7007997 ####[address] [address] Natriuretic peptide B (Bld) [Mass/Vol] 8 pg/mL Normal 5-80 [facility] Comment on above: Performed By: #### 2 800940, 79792691, 73727814, 1333164, 31485459, 62829118, 0622361 ####[address] [address] CBC w/ Auto Diffon Erythrocyte distribution width (RBC) [Ratio] 12.7 % Normal 10.9-14.2 [facility] Comment on above: Performed By: #### 2 585423, 75428988, 97192591, 6889541, 21584850, 89577594, 2823103 ####[place] [address] [place] [address] Hematocrit (Bld) [Volume fraction] 34.2 % Normal 34.0-46.0 [facility] Comment on above: Performed By: #### 2 281204, 08284595, 57075765, 1787316, 30924369, 60368902, 0694426 ####[address] [place] [address] Hemoglobin (Bld) [Mass/Vol] 12.3 g/dL Normal 12.0-16.0 [facility] Comment on above: Performed By: #### 2 116990, 94377403, 03871763, 2053461, 50262079, 29390299, 3729910 ####[address] [address] MCH (RBC) [Entitic mass] 31.8 pg Normal 27.0-34.0 [facility] Comment on above: Performed By: #### 2 397411, 76138088, 08813815, 3376251, 22054036, 51159335, 6017444 ####[address] [address] MCHC (RBC) [Mass/Vol] 35.9 g/dL Normal 31.4-36.0 [facility] Comment on above: Performed By: #### 2 308437, 14474936, 29802822, 4144498, 77594432, 47145440, 0087823 ####[address] [address] MCV (RBC) [Entitic vol] 88.7 fL Normal 80.0-100.0 [facility] Comment on above: Performed By: #### 2 747678, 06244987, 64317997, 2022508, 76567118, 07843302, 9940806 ####[address] [address] Platelet mean volume (Bld) [Entitic vol] 9.8 fL Normal 6.4-10.8 [facility] Comment on above: Performed By: #### 2 932013, 68178809, 55550846, 9505560, 71253976, 76448362, 8797380 ####[address] [address] Platelets (Bld) [#/Vol] 215.0 E9/L Normal 150.0-500.0 [facility] Comment on above: Performed By: #### 2 740225, 55782255, 96592071, 3992926, 43823000, 33587502, 2330905 ####[facility] [address] [place] [address] RBC (Bld) [#/Vol] 3.9 E12/L Low 4.3-5.9 [facility] Comment on above: Performed By: #### 2 147134, 79840082, 08341413, 4996918, 64363824, 72588058, 6307256 ####[facility] [address] [place] [address] WBC corrected for nucl RBC Auto (Bld) [#/Vol] 10.9 E9/L Normal 4.0-11.0 [facility] Comment on above: Result Comment: Slid e reviewed by ts. Performed By: #### 2 838025, 89078940, 71940536, 7804902, 69441454, 07822923, 9728651 ####[facility] [address] [place] [address] CHEMISTRYOrdered By: SYSTEM SYSTEM on 09-05-2022 Anion gap [Moles/Vol] 10 mmol/L Normal 6 - 16 mEq/L [facility] Remisol Calcium [Mass/Vol] [...] rate/Area] mL/min/1.73 m2 Normal >=59mL/min/ 1.73 m2 [facility] Chem S Glucose [Mass/Vol] 87 mg/dL Normal 55 - 199 mg/dL [facility] Remisol Potassium [Moles/Vol] 3.3 mmol/L Low 3.5 - 5.3 mmol/L [facility] Remisol Sodium [Moles/Vol] 131 mmol/L Low 135 - 145 mmol/L [facility] Remisol Troponin I.cardiac [Mass/Vol] 4.70 pg/mL Low 10.10 - 27.10 pg/mL [facility] Remisol Urea nitrogen [Mass/Vol] 7 mg/dL Normal 5 - 21 mg/dL [facility] Remisol Urea nitrogen/Creatinine [Mass ratio] 10 mg/mg Normal 10 - 20 [facility] Remisol CHEMISTRYOrdered By: Temi hayden on 09-05-2022 Natriuretic peptide B (Bld) [Mass/Vol] 8 pg/mL Normal 5 - 80 pg/mL [facility] HemeManSS COAGULATIONOrdered By: Yamile Li on 09-05-2022 aPTT Coag (PPP) [Time] 27.1 s Normal 25.1 - 36.5 second(s) [facility] Auto Coag INR Coag (PPP) [Relative time] 0.9 {INR} Invalid Interpretation Code [facility] Auto Coag PT Coag (PPP) [Time] 10.3 s Normal 9.4 - 1 2.5 second(s) [facility] Auto Coag Consent for Treatmenton 08-16 Consent for Treatment [id number]:12 7 Normal [facility] ED Note-Nursingon 09-05-2022 ED Note-Nursing Normal [facility] ED Note-Physicianon 09-05-20 ED Note-Physician Normal [facility] Comment on above: Result Comment: Elec tronically Signed By: Gopi Rodriguez DO\Date and Time Signed: 09/05/22 21:46 EST Group B Strep by PCRon 09-05 Group B Strep colonization by PCR Negative Normal Negative [facility] Comment on above: Performed By: #### 4 [id number] ####[facility] [address] [place] [address] HEMATOLOGYOrdered By: SYSTEM SYSTEM on 09-05-2022 Basophils/100 [...] Coag (PPP) [Time] 27.1 second(s) Normal 25.1-36.5 [facility] Comment on above: Result Comment: Para [...] the same coagulation reagent and instrumentation as [facility]. Currently there are no coagulation studies available worldwide for children to 14 days, and no normal ranges. Heparin therapeutic range (represented by Anti-Factor Xa activity of 0.2 - 0.4 U/mL) corresponds to PTT of 56.6 - 109.0 sec. Performed By: #### 2 285570, 17825841, 94031736, 9527714, 48775261, 87206096, 1386763 ####[facility] [address] [place] [address] INR Coag (PPP) [Relative time] 0.9 {INR} Invalid Interpretation Code [facility] Comment on above: Result Comment: INR results are specifically intended to assess patients stabilized on long-term Anticoagulation therapy suggested INR?s ?Less Intensive Anticoagulation? 2.0 ? 3.0Conventional Range 3.0 ? 4.5 Performed By: #### 2 745783, 19059783, 19848989, 3653441, 27023902, 41472832, 7981542 ####[facility] [address] [place] [address] PT Coag (PPP) [Time] 10.3 second(s) Normal 9.4-12.5 [facility] Comment on above: Result Comment: 15 [...] the same coagulation reagent and instrumentation as [facility]. Currently there are no coagulation studies available worldwide for children to 14 days, and no normal ranges. Performed By: #### 2 901650, 26063484, 35292853, 1967070, 98795667, 62184684, 1832179 ####[facility] [address] [place] [address] Rapid COVID Antigen ([facility])on 09-05-2022 Rapid COV Int NEG Ctl Pass Normal [facility] Comment on above: Performed By: #### 2 [id number] ####[facility] [address] [place] [address] Rapid COV Int POS Ctl Pass Normal [facility] Comment on above: Performed By: #### 2 [id number] ####[facility] [address] [place] [address] SARS-CoV+SARS-CoV-2 (COVID-19) Ag IA.rapid Ql (Resp) Detected Abnormal Not Detected [facility] Comment on above: Result Comment: Resu lts Called To Berna Cook RN/ER By AGNIESZKA And Read Back For Confirmation On 09/05/2022 21:14:20 ESTResults Verified By Repeat AnalysisThe No.1 Traveller? System for Rapid Detection of SARS-CoV-2 is [...] or revoked sooner. Performed By: #### 2 [id number] ####[place] [address] ADMITTED TO INTENSIVE CARE UNIT FOR CONDITION OF INTEREST:FIND:PT: NO Normal [facility] Comment on above: Performed By: #### 2 [id number] ####[place] [address] EMPLOYED IN A HEALTHCARE SETTING:FIND:PT: NO Normal [facility] Comment on above: Performed By: #### 2 [id number] ####[place] [address] FIRST TEST FOR CONDITION OF INTEREST:FIND:PT: YES Normal [facility] Comment on above: Performed By: #### 2 [id number] ####[place] [address] HAS SYMPTOMS RELATED TO CONDITION OF INTEREST:FIND:PT: YES Normal [facility] Comment on above: Performed By: #### 2 [id number] ####[place] [address] HOSPITALIZED FOR CONDITION OF INTEREST:FIND:PT: NO Normal [facility] Comment on above: Performed By: #### 2 [id number] ####[place] [address] STATUS:FIND:PT: NO Normal [facility] Comment on above: Performed By: #### 2 [id number] ####[address] [place] [address] [facility]ID[facility] C[facility] SETTING:FIND:PT: NO Normal [facility] Comment on above: Performed By: #### 2 [id number] ####[facility] [address] [place] [address] Troponin 0 Hr.on 09-05-2022 Troponin I.cardiac [Mass/Vol] 4.70 pg/mL Low 10.10-27.10 [facility] Comment on above: Result Comment: The 95% CI (Confidence Interval) PPV (Positive Predictive Value) for myocardial infarction in females is 38 pg/mL, in males 51 pg/mL. The results should be used in conjunction with clinical conditions of myocardial infarction.(Access High Sensitivity Troponin I Instructions For Use, [employer], May 2018) Performed By: #### 2 305370, 88943682, 03217094, 7418010, 02293776, 87596329, 1983195 ####[address] [place] [address] eGFRon 09-05-2022 GFR/1.73 sq M.predicted among blacks MDRD (S/P/Bld) [Vol rate/Area] mL/min/{1.73_m2} Normal >=59 [facility] Comment on above: Order Comment: Order added by Discern Expert. Result Comment: eGFR is race adjusted. AA=. Performed By: #### 2 641337, 74816103, 90775822, 0533254, 35993406, 16577588, 5751215 ####[facility] [address] [place] [address] GFR/1.73 sq M.predicted among non-blacks MDRD (S/P/Bld) [Vol rate/Area] mL/min/{1.73_m2} Normal >=59 [facility] Comment on above: Order Comment: Order added by Discern Expert. Result Comment: Precision Lens Grinder lucy kidney disease could be indicated at eGFR's of less than 60 mL/min/1.73m2. Kidney failure is indicated at less than 15 mL/min/1.73m2. Performed By: #### 2 063456, 40236765, 43617278, 6000705, 79681482, 21485704, 3102425 ####[facility] [address] [place] [address] Coding Summary.on 09-04-2022 Coding Summary. Normal [facility] Nursing Assessmenton 022 Nursing Assessment [id number]#[id number]:1 27 Normal [facility] Physician Orderon 09-04-2022 Physician Order [id number]#[id number]:1 27 Normal [facility] ABO/Rhon 08-31-2022 ABO/Rh Positive Invalid Interpretation Code [facility] Comment on above: Performed By: #### 1 6914987, 3601808, 37916010, 47635238 ####[address] [place] [address] ABO/Rh History Checkon 08-31 ABO/Rh History Check Verified Hx Blood Type Normal [facility] Comment on above: Performed By: #### 1 3611625, 2352232, 30303516, 78690926 ####[address] [place] [address] ABSCon 08-31-2022 ABSC Gel Interp Negative Normal [facility] Comment on above: Performed By: #### 1 2914187, 3007571, 74302481, 83081243 ####[address] [place] [address] BUNon 08-31-2022 Urea nitrogen [Mass/Vol] 8 mg/dL Normal 03-04 [facility] Comment on above: Performed By: #### 2 011193, 1155624, 16715763, 0934238, 60797509, 8541406, 7965436, 3983931, 5576378, 9326563, 69603637 ####[address] [place] [address] Blood Bank ID#on 08-31-2022 BBID# [id number] Invalid Interpretation Code [facility] Comment on above: Performed By: #### 1 6524062, 1208600, 72684450, 24466294 ####[facility] [address] [place] [address] CBC w/Indiceson 08-31-2022 Erythrocyte distribution width (RBC) [Ratio] 12.9 % Normal 10.9-14.2 [facility] Comment on above: Performed By: #### 2 231517, 3395663, 62808229, 2487898, 22774058, 9710947, 9473473, 8403744, 5608984, 1716379, 13101633 ####[facility] [address] [place] [address] Hematocrit (Bld) [Volume fraction] 35.0 % Normal 34.0-46.0 [facility] Comment on above: Performed By: #### 2 926936, 8698786, 49464670, 7778826, 78458718, 8874691, 6557811, 5275119, 3322053, 9971710, 85921653 ####[facility] [address] [place] [address] Hemoglobin (Bld) [Mass/Vol] 12.0 g/dL Normal 12.0-16.0 [facility] Comment on above: Performed By: #### 2 597092, 6593135, 05688857, 1167839, 29011417, 5212414, 0394314, 2957426, 0443179, 5774411, 34915613 ####[facility] [address] [place] [address] MCH (RBC) [Entitic mass] 30.7 pg Normal 27.0-34.0 [facility] Comment on above: Performed By: #### 2 195823, 7848009, 35044818, 1290739, 47387041, 3328425, 0306008, 3660955, 0400959, 2443692, 95421401 ####[facility] [address] [place] [address] MCHC (RBC) [Mass/Vol] 34.4 g/dL Normal 31.4-36.0 [facility] Comment on above: Performed By: #### 2 175519, 1093276, 89304301, 1162280, 41965410, 9962621, 8591125, 3612742, 5231104, 3680974, 82216206 ####[facility] [address] [place] [address] MCV (RBC) [Entitic vol] 89.5 fL Normal 80.0-100.0 [facility] Comment on above: Performed By: #### 2 037528, 6975352, 74296945, 0095469, 75618548, 5934359, 5584898, 6295828, 6757604, 9457439, 76284886 ####[facility] [address] [place] [address] Platelet mean volume (Bld) [Entitic vol] 9.8 fL Normal 6.4-10.8 [facility] Comment on above: Performed By: #### 2 707922, 4941954, 56248325, 5647419, 71198030, 8195672, 0899989, 6357556, 7690398, 0720625, 28936274 ####[facility] [address] [place] [address] Platelets (Bld) [#/Vol] 234.0 E9/L Normal 150.0-500.0 [facility] Comment on above: Performed By: #### 2 162752, 6178948, 05058285, 1725327, 51320569, 3573557, 0096241, 3590756, 5712389, 9034605, 08648816 ####[facility] [address] [place] [address] RBC (Bld) [#/Vol] 3.9 E12/L Low 4.3-5.9 [facility] Comment on above: Performed By: #### 2 191237, 3361647, 67374546, 3001231, 85519670, 5892736, 2806526, 9987356, 6062205, 1175111, 78449881 ####[facility] [address] [place] [address] WBC corrected for nucl RBC Auto (Bld) [#/Vol] 12.6 E9/L High 4.0-11.0 [facility] Comment on above: Performed By: #### 2 066987, 0189794, 39975636, 3376187, 63979859, 0494180, 8384680, 4654298, 0738043, 3691282, 70977065 ####[address] [place] [address] Creatinineon 08-31-2022 Creatinine [Mass/Vol] 0.7 mg/dL Normal 0.5-1.3 [facility] Comment on above: Performed By: #### 2 414155, 8937264, 42281833, 1957261, 33890514, 0180095, 6963109, 9302873, 7155188, 3851701, 78068667 ####[address] [address] Discharge Instructionson Discharge Instructions [id number]:12 7 Normal [facility] Ethanolon 08-31-2022 Ethanol [Mass/Vol] mg/dL Normal <=7 [facility] Comment on above: Performed By: #### 2 538550 ####[address] [place] [address] FSPon 08-31-2022 Fibrin+Fibrinogen fragments (S) [Mass/Vol] <10 Normal <10 [facility] Comment on above: Performed By: #### 2 469867, 0280855, 99195860, 1755622, 03053163, 1502855, 2985587, 6050969, 9484938, 7258793, 33696962 ####[address] [place] [address] Stainon 08-31-2022 FMHV 0 mL Invalid Interpretation Code [facility] Comment on above: Performed By: #### 2 510632, 4552611, 82011963, 3488252, 80500290, 4635021, 0715234, 3794229, 7998969, 1841649, 88097089 ####[facility] [address] [place] [address] Negative Control Negative Normal [facility] Comment on above: Performed By: #### 2 082992, 5614421, 20992686, 1412094, 88528184, 8397401, 0808795, 4520490, 5888989, 1623587, 75717790 ####[facility] [address] [place] [address] Fibrinogenon 08-31-2022 Fibrinogen Coag (PPP) [Mass/Vol] 406 mg/dL High 200-393 [facility] Comment on above: Performed By: #### 2 594196, 0747268, 64168646, 9501975, 53716466, 8299760, 8342606, 1529718, 4320205, 8127816, 00975679 ####[facility] [address] [place] [address] Hep Func Panelon 08-31-2022 Bilirubin.indirect [Mass or moles/Vol] UTC Abnormal 0.1-0.9 [facility] Comment on above: Result Comment: Resu lt verified by Discern Rule. Performed result UTC (Unable to Calculate) was sent as an Alpha code due the inability to calculate a valid numeric value. Performed By: #### 2 255788, 8965932, 07174303, 1732635, 05960320, 7275082, 8633318, 1786687, 9386516, 3022293, 94835654 ####[facility] [address] [place] [address] Albumin [Mass/Vol] 2.8 g/dL Low 3.3-5.0 [facility] Comment on above: Performed By: #### 2 640886, 2677158, 66022961, 8106816, 24351465, 4006591, 0011518, 7296985, 1749333, 0381942, 60387485 ####[facility] [address] [place] [address] Albumin/Globulin (S) [Mass conc ratio] 0.7 Low 1.1-2.2 [facility] Comment on above: Performed By: #### 2 791740, 2878526, 15029032, 4952694, 30449526, 4688756, 7580368, 6106836, 0274321, 9512388, 90429064 ####[address] [place] [address] ALP [Catalytic activity/Vol] 80 Int._Unit/L Normal 21-98 [facility] Comment on above: Performed By: #### 2 879178, 3174181, 42086423, 7522240, 75997248, 3349975, 6160072, 0792300, 7456613, 6889257, 07178244 ####[address] [place] [address] ALT No additional P-5'-P [Catalytic activity/Vol] 10 Int._Unit/L Normal 6-46 [facility] Comment on above: Performed By: #### 2 237614, 8127942, 66990953, 5924965, 31589649, 0524608, 0632272, 7426641, 5056334, 0539125, 63402496 ####[facility] [address] [place] [address] AST [Catalytic activity/Vol] 16 Int._Unit/L Normal 5-43 [facility] Comment on above: Performed By: #### 2 617075, 3298717, 05262501, 7310677, 65222506, 0601475, 0568746, 4572189, 1452028, 5135124, 77380991 ####[address] [place] [address] Bilirubin [Mass/Vol] 0.1 mg/dL Normal 0.0-1.1 [facility] Comment on above: Performed By: #### 2 355053, 7078733, 29098174, 4511348, 65032834, 5412389, 2492824, 1974088, 3312634, 1020457, 23242717 ####[facility] [address] [place] [address] Bilirubin.direct [Mass/Vol] mg/dL Normal 0.1-0.4 [facility] Comment on above: Performed By: #### 2 045871, 4024702, 27182341, 5978193, 76619559, 0362789, 0687364, 3391090, 5895172, 3607569, 26837283 ####[facility] [address] [place] [address] Globulin (S) [Mass/Vol] 3.8 g/dL Normal 1.4-4.0 [facility] Comment on above: Performed By: #### 2 708395, 6523019, 23704561, 5762635, 60417825, 3726918, 0026370, 5103044, 3308457, 7098904, 18129862 ####[facility] [address] [place] [address] Protein [Mass/Vol] 6.6 g/dL Normal 6.0-7.8 [facility] Comment on above: Performed By: #### 2 960943, 2024721, 73398679, 8836950, 08151237, 4856017, 1574755, 0206963, 9381307, 2390553, 60938592 ####[facility] [address] [place] [address] Inpatient Clinical Summaryon 08-31-2022 Inpatient Clinical Summary Normal [facility] Inpatient Patient Summaryon 08-31-2022 Inpatient Patient Summary Normal [facility] Lyteson 08-31-2022 Anion gap [Moles/Vol] 13 mmol/L Normal 6-16 [facility] Comment on above: Performed By: #### 2 507378, 7213236, 50980869, 6010496, 92652730, 6347346, 7148873, 6597540, 0302921, 1178035, 21428239 ####[facility] [address] [place] [address] Chloride [Moles/Vol] 104 mmol/L Normal 101-111 [facility] Comment on above: Performed By: #### 2 549440, 4083387, 35246654, 6651258, 94081933, 5998798, 1428772, 4845212, 2550846, 6106178, 29160328 ####[address] [place] [address] CO2 [Moles/Vol] 22 mmol/L Normal 21-31 [facility] Comment on above: Performed By: #### 2 094642, 2905352, 42148051, 5097028, 30721588, 1732252, 9634579, 6239636, 2313203, 0845925, 35180456 ####[address] [place] [address] Potassium [Moles/Vol] 3.5 mmol/L Normal 3.5-5.3 [facility] Comment on above: Performed By: #### 2 737512, 7479818, 50490020, 3112751, 92196200, 6921669, 8360453, 3662638, 2705804, 7927477, 50653784 ####[facility] [address] [place] [address] Sodium [Moles/Vol] 135 mmol/L Normal 135-145 [facility] Comment on above: Performed By: #### 2 115627, 7603894, 25659032, 1696986, 90104311, 8106404, 5259909, 3109033, 5236284, 4608325, 72332319 ####[address] [place] [address] Nursing Assessmenton 022 Nursing Assessment [id number]#[id number]:12 7 Normal [facility] PT & PTTon 08-31-2022 aPTT Coag (PPP) [Time] 26.3 second(s) Normal 25.1-36.5 [facility] Comment on above: Result Comment: Para [...] the same coagulation reagent and instrumentation as [facility]. Currently there are no coagulation studies available worldwide for children to 14 days, and no normal ranges. Heparin therapeutic range (represented by Anti-Factor Xa activity of 0.2 - 0.4 U/mL) corresponds to PTT of 56.6 - 109.0 sec. Performed By: #### 2 904639, 5085916, 63505574, 1024896, 55579646, 4416742, 1147596, 3820162, 7186291, 4801205, 79484561 ####[facility] [address] [place] [address] INR Coag (PPP) [Relative time] 0.9 {INR} Invalid Interpretation Code [facility] Comment on above: Result Comment: INR results are specifically intended to assess patients stabilized on long-term Anticoagulation therapy suggested INR?s ?Less Intensive Anticoagulation? 2.0 ? 3.0Conventional Range 3.0 ? 4.5 Performed By: #### 2 585082, 1809002, 68595893, 8978265, 50665397, 3179556, 1661840, 2196665, 9207434, 1710528, 69728766 ####[facility] [address] [place] [address] PT Coag (PPP) [Time] 10.2 second(s) Normal 9.4-12.5 [facility] Comment on above: Result Comment: 15 [...] the same coagulation reagent and instrumentation as [facility]. Currently there are no coagulation studies available worldwide for children to 14 days, and no normal ranges. Performed By: #### 2 995391, 1161508, 87963638, 9958604, 21850114, 4299378, 5065724, 0509531, 1948291, 3660635, 87089819 ####[facility] [address] [place] [address] U Drug Screenon 08-31-2022 Amphetamines Screen method >1000 ng/mL Ql (U) Negative Normal Negative [facility] Comment on above: Result Comment: Nega tive Cutoff: <1000 ng/mL Performed By: #### 2 610014, 14347256 ####[facility] [address] [place] [address] Barbiturates Screen Ql (U) Negative Normal Negative [facility] Comment on above: Result Comment: Nega tive Cutoff: <200 ng/mL Performed By: #### 2 338812, 92556330 ####[facility] [address] [place] [address] Benzodiazepines Ql (U) Negative Normal Negative [facility] Comment on above: Result Comment: Nega tive Cutoff: <200 ng/mL Performed By: #### 2 287112, 89065395 ####[facility] [address] [place] [address] Cocaine Ql (U) Negative Normal Negative [facility] Comment on above: Result Comment: Nega tive Cutoff: <300 ng/mL Performed By: #### 2 220276, 23398568 ####[facility] [address] [facility] [place] [address] Opiates Screen Ql (U) Negative Normal Negative [facility] Comment on above: Result Comment: Nega tive Cutoff: <300 ng/mL Performed By: #### 2 816043, 10621428 ####[facility] [address] [place] [address] Phencyclidine Screen method >25 ng/mL Ql (U) Negative Normal Negative [facility] Comment on above: Result Comment: Nega tive Cutoff: <25 ng/mLThese drug screen results are to be used for medical (i.e., treatment) purposes only. Unconfirmed drug screening results must not be used for non-medical purposes (e.g., employment testing, legal testing). Performed By: #### 2 681228, 42932944 ####[facility] [address] [place] [address] Tetrahydrocannabinol Screen method >50 ng/mL Ql (U) Negative Normal Negative [facility] Comment on above: Result Comment: Nega tive Cutoff: <50 ng/mL Performed By: #### 2 143806, 09623986 ####[facility] [address] [place] [address] UA With Cult Reflexon 2021 Bacteria LM Ql (Urine sed) TRACE Normal Trace [facility] Comment on above: Performed By: #### 2 882588, 99147047 ####[facility] [address] [place] [address] Bilirubin Ql (U) Negative Normal Negative [facility] Comment on above: Performed By: #### 2 745097, 20066154 ####[facility] [address] [place] [address] Clarity (U) CLEAR Normal Clear [facility] Comment on above: Performed By: #### 2 334049, 66113094 ####[facility] [address] [place] [address] Color (U) YELLOW Normal Yellow [facility] Comment on above: Performed By: #### 2 960809, 40852899 ####[facility] [address] [place] [address] Epithelial cells.squamous LM.HPF (Urine sed) [#/Area] 0-2 Normal 0-2 [facility] Comment on above: Performed By: #### 2 711086, 53361069 ####[facility] [address] [place] [address] Glucose Test strip (U) [Mass/Vol] Negative Normal Negative [facility] Comment on above: Performed By: #### 2 855154, 78555634 ####[facility] [address] [place] [address] Hemoglobin Ql (U) Negative Normal Negative [facility] Comment on above: Performed By: #### 2 578703, 93861275 ####[facility] [address] [place] [address] Ketones (U) [Mass/Vol] Negative Normal Negative Fi [facility] Comment on above: Performed By: #### 2 571796, 49995415 ####[facility] [address] [place] [address] [place].plasma/[place] .RBC (Bld) [Mass ratio] 0-3 Normal 0-3 [facility] Comment on above: Performed By: #### 2 653086, 97163415 ####[facility] [address] [place] [address] Nitrite Ql (U) Negative Normal Negative [facility] Comment on above: Performed By: #### 2 757404, 17079074 ####[facility] [address] [place] [address] pH (U) 6.0 [pH] Invalid Interpretation Code 5.0-9.0 [facility] Comment on above: Performed By: #### 2 624754, 45553077 ####[facility] [address] [place] [address] Protein (U) [Mass/Vol] Negative Normal Negative Fi [facility] Comment on above: Performed By: #### 2 075218, 43023001 ####[address] [id number] [place] [address] Specific gravity (U) [Rel density] 1.010 Invalid Interpretation Code 1.005-1.030 [facility] Comment on above: Performed By: #### 2 [id number], [id number] ####[address] [address] Type of Urine collection method Clean Catch Normal [facility] Comment on above: Performed By: #### 2 [id number], [id number] ####[address] [address] Urobilinogen Qn (U) 0.2 {Rola'U}/dL Normal 0.0-1.0 [facility] Comment on above: Performed By: #### 2 [id number], [id number] ####[address] [address] WBC Auto Ql (U) Negative Normal Negative [facility] Comment on above: Performed By: #### 2 [id number], [id number] ####[address] [address] WBC LM.HPF (Urine sed) [#/Area] 0-5 Normal 0-5 [facility] Comment on above: Performed By: #### 2 [id number], [id number] ####[address] [address] Uric Acidon 08-31-2022 Urate [Mass/Vol] 5.0 mg/dL Normal 2.2-7.4 [facility] Comment on above: Performed By: #### 2 733928, [id number], [id number], 8337984, [id number], 2514468, 5648744, 8336748, 9708060, 0917448, [id number] ####[facility] [address] [place] [address] eGFRon 08-31-2022 GFR/1.73 sq M.predicted among blacks MDRD (S/P/Bld) [Vol rate/Area] mL/min/{1.73_m2} Normal >=59 [facility] Comment on above: Order Comment: Order added by Discern Expert. Result Comment: eGFR is race adjusted. AA=. Performed By: #### 2 072748, [id number], [id number], [id number], [id number], 4105610, 0966542, 4203641, 9394030, 9594625, [id number] ####[facility] [address] [place] [address] GFR/1.73 sq M.predicted among non-blacks MDRD (S/P/Bld) [Vol rate/Area] mL/min/{1.73_m2} Normal >=59 [facility] Comment on above: Order Comment: Order added by Discern Expert. Result Comment: Precision Lens Grinder lucy kidney disease could be indicated at eGFR's of less than 60 mL/min/1.73m2. Kidney failure is indicated at less than 15 mL/min/1.73m2. Performed By: #### 2 500316, [id number], [id number], 1284914, 11572134, 9565547, 6718033, 5738139, 7512432, 9132747, 01127046 ####[facility] [address] [place] [address] BLOOD BANKOrdered By: Naldo Li on 08-30-2022 ABO/Rh Interp Positive Invalid Interpretation Code [facility] BB Subsection ABSC Gel Interp Negative (08/30/22 11:51 PM) Normal [facility] BB Subsection FMHV 0 mL Invalid Interpretation Code [facility] Man Sero CHEMISTRYOrdered By: SYSTEM SYSTEM on [...] rate/Area] mL/min/1.73 m2 Normal >=59mL/min/ 1.73 m2 [facility] Chem S GFR/1.73 [...] Consent for Treatmenton 08-15 Consent for Treatment [id number] Normal [facility] HEMATOLOGYOrdered By: Naldo Li on 08-30-2022 [...] PM) Normal Negative [facility] UA Auto SS [place].plasma/[place] .RBC (Bld) [Mass ratio] 0-3 /HPF Normal [...] FT [facility]A Auto SS Urobilinogen Qn (U) 0.2130867 {Rola'U}/dL Normal 0.0 - 1.0 EU/dL [facility] UA Auto SS WBC Auto Ql (U) Negative (08/30/22 9:45 PM) Normal Negative [facility] UA Auto SS WBC LM.HPF (Urine sed) [#/Area] 0-5 /HPF Normal 0-5/HPF [facility] UA Auto SS Coding Summary.on 08-28-2022 Coding Summary. Normal [facility] BLOOD BANKOrdered By: Janet Reyes on 08-22-2022 ABO/Rh Interp Positive Invalid Interpretation Code FT BB Subsection ABSC Gel Interp Negative (08/22/22 4:03 PM) Normal [facility] BB Subsection FMHV 0 mL Invalid Interpretation Code [facility] Man Sero CHEMISTRYOrdered [...] rate/Area] mL/min/1.73 m2 Normal >=59mL/min/ 1.73 m2 [facility] Chem S GFR/1.73 sq M.predicted among non-blacks MDRD (S/P/Bld) [Vol rate/Area] mL/min/1.73 m2 Normal >=59mL/min/ 1.73 m2 [facility] Chem S Globulin [...] [Mass/Vol] <10 (08/22/22 4:03 PM) Normal <10 [facility] Man Sero Fibrinogen Coag (PPP) [Mass/Vol] 520 [...] PM) Normal Negative [facility] UA Auto SS [place].plasma/[place] .RBC (Bld) [Mass ratio] 0-3 /HPF Normal [...] [facility] UA Auto SS Urobilinogen Qn (U) 0.2615205 {Rola'U}/dL Normal 0.0 - 1.0 EU/dL [facility] [...] AM) Normal Negative [facility] UA Auto SS [place].plasma/[place] .RBC (Bld) [Mass ratio] 0-3 /HPF Normal [...] [facility] Auto SS Urobilinogen Qn (U) 0.6720126 {Rola'U}/dL Normal 0.0 - 1.0 EU/dL [facility] UA Auto SS WBC Auto Ql (U) 2+ *ABN* (08/18/22 4:08 AM) Invalid Interpretation Code Negative [facility] UA Auto SS WBC LM.HPF (Urine sed) [#/Area] 6-15 /HPF Invalid Interpretation Code 0-5/HPF [facility] UA Auto SS BLOOD BANKOrdered By: Tom Avelar on 08-13-2022 ABO/Rh Interp Positive Invalid Interpretation Code [facility] BB Subsection ABSC Gel Interp Negative (08/13/22 6:26 PM) Normal [facility] BB Subsection FMHV 0 mL Invalid Interpretation Code [facility] Man Sero CHEMISTRYOrdered [...] Interpretation Code Negative [facility] UA Auto SS [place].plasma/[place] .RBC (Bld) [Mass ratio] 0-3 /HPF Normal [...] [facility] UA Auto SS Urobilinogen Qn (U) 0.3235759 {Rola'U}/dL Normal 0.0 - 1.0 EU/dL [facility] [...] AM) Normal Negative [facility] UA Auto SS [place].plasma/[place] .RBC (Bld) [Mass ratio] 0-3 /HPF Normal [...] [facility] UA Auto SS Urobilinogen Qn (U) 0.0804757 {Rola'U}/dL Normal 0.0 - 1.0 EU/dL [facility] [...] [Mass/Vol] Negative (07/17/22 9:25 AM) Normal Negative [facility] UA Auto SS Hemoglobin Ql (U) Negative (07/17/22 9:25 AM) Normal Negative [facility] UA Auto SS Ketones (U) [Mass/Vol] Negative (07/17/22 9:25 AM) Normal Negative [facility] UA Auto SS [place].plasma/[place] .RBC (Bld) [Mass ratio] 0-3 /HPF Normal 0-3/HPF [facility] UA Auto SS Nitrite Ql (U) Negative (07/17/22 9:25 AM) Normal Negative [facility] UA Auto SS pH (U) 7.0 *NA* (07/17/22 9:25 AM) Invalid Interpretation Code 5.0 - 9.0 [facility] UA Auto SS Protein (U) [Mass/Vol] Negative (07/17/22 9:25 AM) Normal Negative [facility] UA Auto SS Specific gravity (U) [Rel density] <=1.005 *NA* (07/17/22 9:25 AM) Invalid Interpretation Code 1.005 - 1.030 [facility] UA Auto SS UA Spec Desc Clean Catch (07/17/22 9:25 AM) Normal [facility] UA Auto SS Urobilinogen Qn (U) 0.3691876 {Rola'U}/dL Normal 0.0 - 1.0 EU/dL [facility] UA Auto SS WBC Auto Ql (U) Negative (07/17/22 9:25 AM) Normal Negative [facility] UA Auto SS WBC LM.HPF (Urine sed) [#/Area] 0-5 /HPF Normal 0-5/HPF [facility] UA Auto SS CHEMISTRYOrdered By: SYSTEM SYSTEM on 06-28-2022 Glucose 1 Hr post 50 g glucose PO [Mass/Vol] 93 mg/dL Normal 55 - 140 mg/dL [facility] Remisol HEMATOLOGYOrdered By: Keila Ring on 06-28-2022 Hematocrit (Bld) [Volume fraction] 35.4 % Normal 34.0 - 46.0 % [facility] HemeAutoSS Hemoglobin (Bld) [Mass/Vol] 12.1 g/dL Normal 12.0 - 16.0 gm/dL [facility] HemeAutoSS BLOOD BANKOrdered By: Jeanette Castle on 06-19-2022 ABO/Rh Interp Positive Invalid Interpretation Code [facility] BB Subsection ABSC Gel Interp Negative (06/19/22 12:15 AM) Normal [facility] BB Subsection FMHV 0 mL Invalid Interpretation Code [facility] Man Sero CHEMISTRYOrdered [...] mg/dL Normal 0.0 - 1 .1 mg/dL [facility] Remisol Bilirubin.direct [Mass/Vol] mg/dL Normal 0.1 - [...] [Mass/Vol] <10 (06/19/22 12:15 AM) Normal <10 [facility] Man Sero Fibrinogen Coag (PPP) [Mass/Vol] 367 [...] PM) Normal Negative [facility] UA Auto SS [place].plasma/[place] .RBC (Bld) [Mass ratio] 0-3 /HPF Normal [...] [facility] UA Auto SS Urobilinogen Qn (U) 0.6262525 {Rola'U}/dL Normal 0.0 - 1.0 EU/dL [facility] [...] PM) Normal Negative [facility] UA Auto SS [place].plasma/[place] .RBC (Bld) [Mass ratio] 0-3 /HPF Normal [...] Desc Random Urine (05/01/22 5:20 PM) Normal [facility] UA Auto SS Urobilinogen Qn (U) 1.8096365 {Rola'U}/dL Normal 0.0 - 1.0 EU/dL [facility] UA Auto SS WBC Auto Ql (U) Negative (05/01/22 5:20 PM) Normal Negative [facility] UA Auto SS WBC LM.HPF (Urine sed) [#/Area] 0-5 /HPF Normal 0-5/HPF [facility] UA Auto SS BLOOD BANKOrdered By: Shayy Medina on 04-02-2022 ABO/Rh Interp Positive Invalid Interpretation Code [facility] BB Subsection ABSC Gel Interp Negative (04/02/22 7:17 AM) Normal [facility] BB Subsection FMHV 0 mL Invalid Interpretation Code [facility] Man Sero CHEMISTRYOrdered [...] rate/Area] mL/min/1.73 m2 Normal >=59mL/min/ 1.73 m2 [facility] Chem S GFR/1.73 sq M.predicted among non-blacks MDRD (S/P/Bld) [Vol rate/Area] mL/min/1.73 m2 Normal >=59mL/min/ 1.73 m2 [facility] Chem S Globulin [...] 8.4 E9/L Normal 4.0 - 11.0 E9/L [facility] HemeAutoSS URINALYSISOrdered By: Temi Romero on 04-02-2022 [...] AM) Normal Negative [facility]A Auto SS [place].plasma/[place] .RBC (Bld) [Mass ratio] 0-3 /HPF Normal [...] [facility] UA Auto SS Urobilinogen Qn (U) 0.7822903 {Rola'U}/dL Normal 0.0 - 1.0 EU/dL FT [...] PM) Normal Negative [facility] UA Auto SS [place].plasma/[place] .RBC (Bld) [Mass ratio] 0-3 /HPF Normal [...] [facility] UA Auto SS Urobilinogen Qn (U) 0.2215602 {Rola'U}/dL Normal 0.0 - 1.0 EU/dL [facility] [...] HemeAutoSS Reference Laboratory Testing Ordered By: Stephanie Littled on 02-15-2022 Test Code 195771 Invalid Interpretation Code [facility] SendOutsSS Test Name IG PAP CTNG HPV Invalid Interpretation Code [facility] SendOutsSS [place] 05-05-2021 CNPN Telephone (GSTCON) ----- SUSAN BRO ([id number]) 1995 F Date Time Provider Department 05/05/21 MARTHA WEBB During your visit today, we recorded the following information about you: Tucker Amairani Bleach Analyst 05/05/2021 10:37 AM Signed Patient left message [...] diligent work on this patient Tucker Amairani Bleach Analyst 05/24/2021 2:23 PM Signed patient called and left a message today stating she needs to get this figured out she has not eaten in 3 days and cant even drink water now. Patient can be reached at [phone]- please read messages below for refresher Martha Webb MD 05/24/2021 4:30 PM Signed Please advise patient to go to ER for evaluation Tucker Wiseman 05/24/2021 4:35 PM Signed Had to leave a message for the patient, left the message to go to ER. 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 AT ONSET OF HEADACHE. MAY REPEAT AFTER 2 HOURS. DO NOT EXCEED 30 MG PER DAY. Problem List As Of Date: 05/05/2021 (None) Encounter Status:Closed by [facility] SUSAN BRO ([id number]) 1995 F Date Time Provider Department 04/07/21 MARTHA WEBB During your visit today, we recorded the following information about you: Tucker Hatchh Bleach Analyst 04/07/2021 12:31 PM Signed [facility] called and they need the GES solid orde rplaced even though she has to use ensure, please sign order in this encounter Allergies As of Date: 04/07/2021 Noted Allergy Reaction PENICILLINS 03/10/2021 2 - Rash Date Reviewed: 04/01/2021 Reviewed by: Odette Agosto MD - Fully Assessed Reason for Visit: Orders [681] Visit Diagnosis:Nausea [R11.0] Order(s):NM GASTRIC EMPTYING SOLID [[id number]] Order #: [id number] FUTURE Prescriptions as of 04/07/2021 Sig: AMITRIPTYLINE 10 MG TABLET Take 1 tab at bed x 1 week, t* RIZATRIPTAN 10 MG DISINTEGRAT* Take 1 tablet by mouth as nee* Problem List As Of Date: 04/07/2021 (None) Encounter Status:Closed by MARTHA WEBB on 04/07/21 [facility] 04-04-2021 CNPN Telephone (GSTCON) ----- SUSAN BRO ([id number]) 1995 F Date Time Provider Department 04/04/21 MARTHA WEBB During your visit today, we recorded the following information about you: Tucker Bales Bleach Analyst 04/04/2021 1:40 PM Signed Patient called and is still waiting for you to place the order for her GES with ensure, she cant eat the eggs and toast Martha Webb MD 04/04/2021 4:48 PM Signed Let patient know I placed the order Tucker Bales Bleach Analyst 04/05/2021 11:41 AM S[address] you place [...] Visit Diagnosis:Nausea [R11.0] Order(s):NM GASTRIC EMPTYING LIQUID [[id number]] Order #: [id number] FUTURE Prescriptions as of 04/04/2021 Sig: AMITRIPTYLINE 10 MG TABLET Take 1 tab at bed x 1 week, t* RIZATRIPTAN 10 MG DISINTEGRAT* Take 1 tablet by mouth as nee* Problem List As Of Date: 04/04/2021 (None) Encounter Status:Closed by MARTHA WEBB on 04/05/21 [facility] 04-01-2021 CNOV Office Visit (NHMNS2 ) ----- SUSAN BRO ([id number]) 1995 F Date Time Provider Department 04/01/21 8:00 AM [facility] GAMNS2 During your visit today, we recorded the [...] at least 3 months. These include all ccus-eqt-sptruxo medications, triptans, narcotics, and butalbital containing medications [...] There h (more content not included)... Normal [facility] [place] 03-22-2021 [facility] Telephone (Intela) ----- SUSAN BRO ([id number]) 1995 F Date Time Provider Department 03/22/21 MARTHA WEBB During your visit today, we recorded the following information about you: Tucker Wiseman 03/22/2021 2:28 PM Signed Received: Today MD Eusebia Banks [facility] Jon Clinical Pool; Tucker Hatchh Bleach Analyst Let patient know esophagram was normal Next step is gastric emptying study I placed order for gastric emptying study Tucker Bales Bleach Analyst 03/22/2021 2:28 PM Signed Pt is notified, will schedule the GES Allergies As of Date: 03/22/2021 Noted Allergy Reaction PENICILLINS 03/10/2021 2 - Rash Date Reviewed: 03/10/2021 Reviewed by: Martha Webb MD - Fully Assessed Reason for Visit: Results [95] Problem List As Of Date: 03/22/2021 (None) Encounter Status:Closed by TUCKER LARA on 03/22/21 Normal [facility] XR ESOPHAGRAMon 03-17-2021 XR ESOPHAGRAM [...] symptoms. Other Findings: None. IMPRESSION: Normal esophagram. Supply Chain Planner: LUCITA Transcribe Date/Time: Mar 17 2021 11:15A Dictated by : CRISTÓBAL SALINAS DO This examination was interpreted and the report reviewed and electronically signed by: CRISTÓBAL SALINAS DO on Mar 17 2021 11:18AM EST [id number] [facility] 03-10-2021 CNOV Office Visit (GSTCON ) ----- SUSAN BRO ([id number]) 1995 F Date Time Provider Department 03/10/21 11:15 AM MARTHA WEBB During your visit today, we recorded the following information about you: Pulse Blood pressure Weight Height 69/minute 108/76 73 kg 1.626 m Martha Webb MD 03/10/2021 12:03 PM Signed This note was created using Shout TVter. Subjective Susan Bro is a 25 year [...] COMMENT: Un (more content not included)... [facility] (GASTLB) ----- SUSAN BRO ([id number]) 1995 F Date Time Provider Department 03/10/21 MARTHA WEBB During your visit today, we recorded the following information about you: Don Trevino Bleach Analyst 03/10/2021 1:24 PM Signed Failed fax in Dodonation from 03/10/2021 regarding this patient from Dr. Webb. Faxed manually to [phone]. Scanned fax confirmation/documents into [employer]on[employer]. Don Trevino Bleach Analyst Allergies As of Date: 03/10/2021 Noted Allergy Reaction PENICILLINS 03/10/2021 2 - Rash Date Reviewed: 03/10/2021 Reviewed by: Martha Webb MD - Fully Assessed Reason for Visit: Electronic Communication [890] Problem List As Of Date: 03/10/2021 (None) Encounter Status:Closed by DON DIAZ on 03/10/21 Normal [facility] CBC WITH AUTO DIFFERENTIALon 10-14-2020 Basophils (Bld) [#/Vol] 0.06 10*3/uL [facility] Basophils/100 WBC (Bld) 0.6 % [facility] Eosinophils (Bld) [#/Vol] 0.36 10*3/uL [facility] Eosinophils/100 WBC (Bld) 3.4 % [facility] Erythrocyte distribution width (RBC) [Entitic vol] 13.2 % 11.6 - 14.8 % [facility] Hematocrit (Bld) [Volume fraction] 43.2 % 36 - 46 % [facility] Hemoglobin (Bld) [Mass/Vol] 14.1 g/dL 12 - 16 g/dL [facility] Immature granulocytes (Bld) [#/Vol] 0.03 10*3/uL [facility] Immature granulocytes/100 WBC (Bld) 0.30 % [facility] Comment on above: The IG parameter is the percentage of metamyelocytes, myelocytes and promyelocytes. An immature granulocyte count (IG) of 1% or more suggests the possibility of infection, an IG count of 3% is very likely related to an infection. Interpretation and review of laboratory results Abnormal [facility] Lymphocytes (Bld) [#/Vol] 1.47 10*3/uL [facility] Lymphocytes/100 WBC (Bld) 13.8 % [facility] MCH (RBC) [Entitic mass] 29.6 pg 26 - 34 pg [facility] MCHC (RBC) [Mass/Vol] 32.6 g/dL 31 - 3 7 g/dL [facility] MCV (RBC) [Entitic vol] 90.6 fL 80 - 100 fL [facility] Monocytes (Bld) [#/Vol] 0.58 10*3/uL [facility] Monocytes/100 WBC (Bld) 5.5 % [facility] Neutrophils (Bld) [#/Vol] 8.12 10*3/uL High [facility] Neutrophils/100 WBC (Bld) 76.4 % [facility] Nucleated RBC (Bld) [#/Vol] 0.00 10*3/uL [facility] Nucleated RBC/100 WBC (Bld) [Ratio] 0.0 % [facility] Platelet mean volume (Bld) [Entitic vol] 10.3 fL 9.4 - 12.4 fL [facility] Platelets (Bld) [#/Vol] 251 10*3/uL [facility] RBC (Bld) [#/Vol] 4.77 10*6/uL [facility] [place] [facility] ealth WBC (Bld) [#/Vol] 10.62 10*3/uL [facility] COVID-19/INFLUENZA A,B MOLEC [facility] 10-14-2020 COVID-19/INFLUENZA A,B MOLECULAR SARS-COV-2 (SANA): Not Detected INFLUENZA A (SANA): Not Detected INFLUENZA B (SANA): Not Detected Normal Not Detected [facility] Comment on [...] at the following links: For Healthcare Providers: https://www.fda.gov/media/910261/download For Patients: https://www.fda.gov/media/389124/download Performed By: #### L [id number] #### [facility] [address], [place] [address] Raffy Yadav M.D. [id number] COVID-19/Influenza A,B [facility] 10-14-2020 Influenza A Not Detected Not Detected [facility] Influenza B Not Detected Not Detected [facility] Interpretation and review of laboratory results Normal [facility] SARS-CoV-2 Not Detected Not Detected [facility] This test was perfor med under [...] the following links: For Healthcare Providers: https://www.fda.gov/media /865954/download For Patients: https://www.fda.gov/media /816225/download [facility] CT HEAD OR BRAIN WITHOUT CON [...] hemorrhage or extraaxial fluid collections are identified. Ahhn-white matter differentiation is preserved without a focus [...] SunOct 14, 2020 11:28:15 AM EST Normal [facility] Comment [...] orbits and paranasal sinuses are grossly unremarkable. [facility] 1. No acute intracra nial hemorrhage, focal edema or mass effect. Workstation ID: [id number] [facility] Interface, Rad In Fu ji Speechq [...] edema or mass effect. Workstation ID: [id number] [facility] Chem 7on 10-14-2020 Anion gap [Moles/Vol] 8 mmol/L Low 10 - 2 0 mmol/L [facility] Chloride [Moles/Vol] 112 mmol/L High 98 - 10 8 mmol/L [facility] Creatinine [Mass/Vol] 0.78 mg/dL 0.40 - 1.10 [facility] GFR/1.73 sq M predicted among non-blacks MDRD (S/P/Bld) [Vol rate/Area] The eGFR should be used for monitoring renal function only and not for medication dosing. [facility] GFR/1.73 sq M.predicted CKD-EPI (S/P/Bld) [Vol rate/Area] 105 >=60 mL/min/1.73 m2 [facility] Glucose [Mass/Vol] 78 mg/dL 65 - 99 mg/dL [facility] HCO3 [Moles/Vol] 24 mmol/L 21 - 32 mmol/L [facility] Interpretation and review of laboratory results Abnormal [facility] Potassium [Moles/Vol] 4.5 mmol/L 3.5 - 5.1 mmol/L [facility] Comment on above: moderate hemolysis, result may be falsely increased. Sodium [Moles/Vol] 139 mmol/L 135 - 145 mmol/L [facility] Urea nitrogen [Mass/Vol] 5 mg/dL Low 8 - 25 mg/dL [facility] Urea nitrogen/Creatinine [Mass ratio] 6.4 mg/mg Low [facility] Otheron 10-14-2020 Extra Tube Hold for add-ons. [facility] Comment on above: Auto resulted. URINALYSISon 10-14-2020 Bacteria Auto Ql (U) None Seen None Se en /hpf [facility] Bilirubin Ql (U) Negative Negative [facility] Clarity Refractometry automated (U) Cloudy Abnormal Clear [facility] Color (U) Yellow Colorless, Yellow [facility] Epithelial cells.squamous Auto (Urine sed) [#/Area] 18 High [facility] Glucose Auto test strip (U) [Mass/Vol] Negative Negative mg/dL [facility] Hemoglobin Auto test strip Ql (U) Negative Negative [facility] Interpretation and review of laboratory results Abnormal [facility] Ketones (U) [Mass/Vol] Negative Negat juju mg/dL [facility] Leukocyte esterase Auto test strip Ql (U) Trace Abnormal Negative [facility] h Mucus Auto (Urine sed) [#/Area] Many Abnormal None Seen, Rare /lpf [facility] Nitrite Auto test strip Ql (U) Negative Negative [facility] pH (U) 8.0 [pH] High [facility] Protein (U) [Mass/Vol] 30 Abnormal Negat juju mg/dL [facility] Comment on above: False positive resul ts may occur in urines with large amounts of hemoglobin, pH greater than 8.0, contrast medium, or disinfectants including ammonium compounds. RBC Auto (Urine sed) [#/Area] 3 [facility] Specific gravity (U) [Rel density] 1.028 High [facility] Urobilinogen (U) [Mass/Vol] 2.0 mg/dL Abnormal <2.0 [facility] WBC Auto (Urine sed) [#/Area] 3 [facility] Microscopic examinat ion is performed on all urinalysis samples and only positive findings are reported. The test for blood on the chemical analytic portion of urinalysis may also be positive due to hemoglobinuria and myoglobinuria and if red blood cells are present they are quantified by microscopic examination. [facility] hCG Urine, Qualitativeon HCG ( test) Ql (U) Negative Negative [facility] Interpretation and review of laboratory results Normal [facility] ABDOMEN, COMPLT ACUTE SERIES on 09-05-2020 ABDOMEN, COMPLT ACUTE SERIES Patient Name: SUSAN BRO STUDY: ABDOMEN, COMPLT ACUTE SERIES; 09/04/2020 11:54 pm INDICATION: constipation. COMPARISON: None. ACCESSION NUMBER(S): [id number] ORDERING CLINICIAN: BRAYDEN YANEZ TECHNIQUE: Abdomen supine [...] Electronically signed by: CANDACE AREVALO MD Normal [facility] BASIC METABOLIC PANELon 08-16 Anion gap [Moles/Vol] 12 mmol/L Normal 10 - 20 [facility] Comment on above: Performed By: #### B MP #### [address] [address] Calcium [Mass/Vol] 9.0 mg/dL Normal 8.6 - 10.3 [facility] Comment on above: Performed By: #### B MP #### [address] [address] Chloride [Moles/Vol] 105 mmol/L Normal 98 - 107 [facility] Comment on above: Performed By: #### B MP #### [address] [address] Creatinine [Mass/Vol] 0.90 mg/dL Normal 0.50 - 1.05 [facility] Comment on above: Performed By: #### B MP #### [address] [address] GFR- AM. >60 Normal >60 [facility] Comment on above: Result Comment: CALC ULATIONS OF ESTIMATED GFR ARE PERFORMED USING THE MDRD STUDY EQUATION FOR THE IDMS-TRACEABLE CREATININE METHODS. CLIN CHEM 2007;53:766-72 Performed By: #### B MP #### [address] [address] GFR-NON AM. >60 Normal >60 [facility] Comment on above: Performed By: #### B MP #### [address] [address] Glucose [Mass/Vol] 96 mg/dL Normal 74 - 99 [facility] Comment on above: Performed By: #### B MP #### [address] [address] HCO3 (Bld) [Moles/Vol] 25 mmol/L Normal 21 - 32 [facility] Comment on above: Performed By: #### B MP #### [address] [address] Potassium [Moles/Vol] 3.5 mmol/L Normal 3.5 - 5.3 [facility] Comment on above: Performed By: #### B MP #### [address] [address] Sodium [Moles/Vol] 138 mmol/L Normal 136 - 145 [facility] Comment on above: Performed By: #### B MP #### [address] [address] Urea nitrogen [Mass/Vol] 7 mg/dL Normal 6 - 23 [facility] Comment on above: Performed By: #### B MP #### [address] [address] CBCon 09-05-2020 Erythrocyte distribution width (RBC) [Ratio] 13.2 % Normal 11.5 - 14.5 [facility] Comment on above: Performed By: #### C BC #### [address] [address] Hematocrit (Bld) [Volume fraction] 42.5 % Normal 36.0 - 46.0 [facility] Comment on above: Performed By: #### C BC #### [address] [address] Hemoglobin (Bld) [Mass/Vol] 14.5 g/dL Normal 12.0 - 16.0 [facility] Comment on above: Performed By: #### C BC #### [address] [address] MCHC (RBC) [Mass/Vol] 34.2 g/dL Normal 32.0 - 36.0 [facility] Comment on above: Performed By: #### C BC #### [address] [address] MCV (RBC) [Entitic vol] 88 fL Normal 80 - 100 [facility] Comment on above: Performed By: #### C BC #### [address] [address] Platelets (Bld) [#/Vol] 272 10*3/uL Normal 150 - 450 [facility] Comment on above: Performed By: #### C BC #### [address] [address] RBC (Bld) [#/Vol] 4.86 x10E12/L Normal 4.00 - 5.20 [facility] Comment on above: Performed By: #### C BC #### [address] [address] WBC (Bld) [#/Vol] 12.5 10*3/uL High 4.4 - 11.3 [facility] Comment on above: Performed By: #### C BC #### [address] [address] HCG,URINEon 09-05-2020 Beta HCG ( test) Ql (U) Negative Normal Negative [facility] Comment on above: Performed By: #### H CGU #### [address] [address] Provider Note - ED v2on 08-16 Provider [...] SIGNIFICANT EVENTS: 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(1) Is : no(1) REVIEW [...] Referenced From Triage - ED 04-Sep-2020 22:51 [facility] Risk Screen - Adult Emergenc yon 09-05-2020 Risk Screen - Adult Emergency Preferred Language: Preferred Language: Preferred Language for Discussing Health Care (patient/designee)[place] Advanced Directives: Advance Directive/DNRno Family Violence Adult: [...] an injured patient at a Trauma Center ([facility]/[place]/ [place]): no Electronic Signatures: Nette Dorantes (SANDEEV) (Signed 04-Sep-2020 23:08) Authored: Preferred Language, Advanced Directives, Family Violence Adult, Learning Assessment (Patient), Learning Assessment (Other Learner), Pressure Injury/TB/Substance, Pressure Injury, CAGE Last Updated: 04-Sep-2020 23:08 by Nette Dorantes (DEL) [facility] Triage - EDon 09-05-2020 Triage - [...] BMI (kg/m2): 38.627 Calculated BSA (m2) 2.15 [place] Coma Scale: Best Eye Response: (E4) spontaneous Best Motor Response: (M6) obeys commands Best Verbal Response: (V5) oriented Andres Score: 15 Cough lasting greater than 3 weeks: no Patient immunocompromised related to: N/A Allergies: yes Last menstrual period: 05-Aug-2020 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: (states no form of BC) Patient [...] 04-Sep-2020 23:01 by Nette Dorantes (SUPV) Normal [facility] URINALYSISon 09-05-2020 Appearance (U) CLEAR Normal CLEAR [facility] Comment on above: Performed By: #### U A #### [place] [address] Bilirubin (U) [Mass/Vol] Negative Normal NEGATIVE [facility] Comment on above: Performed By: #### U A #### [place] [address] BLOOD Negative Normal NEGATIVE [facility] Comment on above: Performed By: #### U A #### [place] [address] Color (U) Yellow Normal STRAW,YELLO W [facility] Comment on above: Performed By: #### U A #### [place] [id number] Glucose [Mass/Vol] Negative Normal NEGATIVE [facility] Comment on above: Performed By: #### U A #### [place] [id number] Ketones Ql (U) Negative Normal NEGATIVE [facility] Comment on above: Performed By: #### U A #### [address] [address] Leukocyte esterase Test strip Ql (U) Negative Normal NEGATIVE [facility] Comment on above: Performed By: #### U A #### [address] [address] Nitrite Ql (U) Negative Normal NEGATIVE [facility] Comment on above: Performed By: #### U A #### [address] [address] pH (Bld) 5.0 Normal 5.0 - 8.0 [facility] Comment on above: Performed By: #### U A #### [address] [address] Protein (U) [Mass/Vol] Negative Normal NEGATIVE [facility] Comment on above: Performed By: #### U A #### [address] [address] Specific gravity (U) [Rel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 09-08-2022 08:32-0500 Diastolic blood pressure 74 mm[Hg] Luis Carlos Jung [facility] 09-08-2022 08:32-0500 Heart rate 90 /min Luis Carlos Jung [facility] 09-08-2022 08:32-0500 Hourly Rounding Luis Carlos Jung [facility] Comment on above: Result Comment: PLAN OF CARE DISCUSSED 09-08-2022 08:32-0500 Mean blood pressure 90 mm[Hg] Luis Carlos Jung [facility] 09-08-2022 08:32-0500 Respiratory rate 18 /min Luis Carlos Jung [facility] 09-08-2022 08:32-0500 Systolic blood pressure 123 mm[Hg] Luis Carlos Jung [facility] 09-05-2022 22:00-0500 Body temperature 98.6 [degF] Gopi Dokken [facility] 09-05-2022 22:00-0500 Diastolic blood pressure 73 mm[Hg] Kaylinn Dokken [facility] 09-05-2022 22:00-0500 Mean blood pressure 85 mm[Hg] Kaylinn Dokken [facility] 09-05-2022 22:00-0500 Respiratory rate 27 /min Kaylinn Dokken [facility] 09-05-2022 22:00-0500 SaO2% (BldA) [Mass fraction] 100 % Kaylinn Dokken [facility] 09-05-2022 22:00-0500 Systolic blood pressure 108 mm[Hg] Kaylinn Dokken [facility] 09-05-2022 21:01-0500 Heart rate 78 /min Kaylinn Dokken [facility] 09-05-2022 21:01-0500 Respiratory rate 20 /min Kaylinn Dokken [facility] 09-05-2022 21:01-0500 SaO2% (BldA) [Mass fraction] 94 % Kaylinn Dokken [facility] 09-05-2022 21:00-0500 Diastolic blood pressure 77 mm[Hg] Kaylinn Dokken [facility] 09-05-2022 21:00-0500 Mean blood pressure 87 mm[Hg] Kaylinn Dokken [facility] 09-05-2022 20:10-0500 Body temperature 97.7 [degF] Kaylinn Dokken [facility] 09-05-2022 20:10-0500 Diastolic blood pressure 81 mm[Hg] Gopi Rodriguez [facility] 09-05-2022 20:10-0500 Heart rate 83 /min Gopi Rodriguez [facility] 09-05-2022 20:10-0500 Respiratory rate 22 /min Gopi Rodriguez [facility] 09-05-2022 20:10-0500 SaO2% (BldA) [Mass fraction] 99 % emilee Rodriguez [facility] 09-05-2022 20:10-0500 Systolic blood pressure 135 mm[Hg] emilee Rodriguez [facility] 08-31-2022 01:03-0500 Hourly Rounding Luis Carlos Jung [facility] Comment on above: Result Comment: pt ambulates off unit at this time w/ steady gait. 08-31-2022 00:58-0500 Hourly Rounding Luis Carlos Jung [facility] Comment on above: Result Comment: this nurse gives dischar ge instructions to pt at this time. pt verbalizes understanding of all education given. denies further needs. will continue to monitor. 08-31-2022 00:50-0500 Blood Pressure Location Luis Carlos Jung [facility] 08-31-2022 00:50-0500 Diastolic blood pressure 69 mm[Hg] Luis Carlos Jung [facility] 08-31-2022 00:50-0500 Heart rate 67 /min Luis Carlos Jung [facility] 08-31-2022 00:50-0500 Hourly Rounding Luis Carlos Jung [facility] Comment on above: Result Comment: pt up to bathroom at thi s time to void and change into clothes. walks w/ steady gait. 08-31-2022 00:50-0500 Mean blood pressure 83 mm[Hg] Luis Carlos Jung [facility] 08-31-2022 00:50-0500 Respiratory rate 18 /min Luis Carlos Jung [facility] 08-31-2022 00:50-0500 Systolic blood pressure 112 mm[Hg] Luis Carlos Jung [facility] 08-30-2022 21:52-0500 Body temperature 98.06 [degF] Luis Carlos Jung [facility] 08-30-2022 21:52-0500 Diastolic blood pressure 74 mm[Hg] Luis Carlos Jung [facility] 08-30-2022 21:52-0500 Heart rate 82 /min Luis Carlos Jung [facility] 08-30-2022 21:52-0500 Mean blood pressure 90 mm[Hg] Luis Carlos Jung [facility] 08-30-2022 21:52-0500 Respiratory rate 18 /min Luis Carlos Jung [facility] 08-30-2022 21:52-0500 Systolic blood pressure 123 mm[Hg] Luis Carlos Jung [facility] 08-30-2022 21:45-0500 Blood Pressure Location Luis Carlos Jung [facility] 08-22-2022 17:19-0500 Hourly Rounding Luis Carlos Jung [facility] Comment on above: Result Comment: MONITORS OFF; PT UP TO D RESS. DISCHARGE INSTRUCTIONS GIVEN WITH VERBAL UNDERSTANDING. 08-22-2022 15:14-0500 Diastolic blood pressure 71 mm[Hg] Luis Carlos Jung [facility] 08-22-2022 15:14-0500 Heart rate 87 /min Luis Carlos Jung [facility] 08-22-2022 15:14-0500 Hourly Rounding Luis Carlos Jung [facility] 08-22-2022 15:14-0500 Mean blood pressure 86 mm[Hg] Luis Carlos Jung [facility] 08-22-2022 15:14-0500 Respiratory rate 18 /min Luis Carlos Jung [facility] 08-22-2022 15:14-0500 Systolic blood pressure 115 mm[Hg] Luis Carlos Jung [facility] 08-18-2022 12:28-0400 Hourly Rounding Luis Carlos Jung [facility] Comment on above: Result Comment: pt verbalizes understand ing of discharge instructions. pt states she has an appointment sunday with dr jung. pt ambulated out of unit 08-18-2022 10:28-0400 Hourly Rounding Luis Carlos Jung [facility] Comment on above: Result Comment: pt c/o left lower abd pa in. states it is intermittent and sharp. encouraged pt to get up and empty bladder. pt states pain is still 7/10. dr jung on unit & at bedside 08-18-2022 09:09-0400 Hourly Rounding Luis Carlos Jung [facility] Comment on above: Result Comment: pt sitting up in bed wit h breakfast gina, visitor at bedside 08-18-2022 07:15-0400 Blood Pressure Location Luis Carlos Fabiana [facility] 08-18-2022 07:15-0400 Diastolic blood pressure 56 mm[Hg] Luis Carlos Montesinosten [facility] 08-18-2022 07:15-0400 Heart rate 69 /min Luis Carlos Jung [facility] 08-18-2022 07:15-0400 Mean blood pressure 74 mm[Hg] Luis Carlos Montesinosten [facility] 08-18-2022 07:15-0400 Respiratory rate 16 /min Luis Carlos Jung [facility] 08-18-2022 07:15-0400 Systolic blood pressure 111 mm[Hg] Luis Carlos Montesinosten [facility] 08-18-2022 05:58-0400 Blood Pressure Location Luis Carlos Jung [facility] 08-18-2022 05:58-0400 Diastolic blood pressure 59 mm[Hg] Luis Carlos Jung [facility] 08-18-2022 05:58-0400 Heart rate 67 /min Luis Carlos Jung [facility] 08-18-2022 05:58-0400 Mean blood pressure 77 mm[Hg] Luis Carlos Montesinosten [facility] 08-18-2022 05:58-0400 Respiratory rate 16 /min Luis Carlos Jung [facility] 08-18-2022 05:58-0400 Systolic blood pressure 113 mm[Hg] Luis Carlos Jung [facility] 08-18-2022 04:06-0400 Blood Pressure Location Luis Carlos Jung [facility] 08-18-2022 04:06-0400 Body temperature 98.06 [degF] Luis Carlos Jung [facility] 08-18-2022 04:06-0400 Diastolic blood pressure 65 mm[Hg] Luis Carlos Montesinosten [facility] 08-18-2022 04:06-0400 Heart rate 70 /min Luis Carlos Jung [facility] 08-18-2022 04:06-0400 Mean blood pressure 79 mm[Hg] Luis Carlos Jung [facility] 08-18-2022 04:06-0400 Respiratory rate 16 /min Luis Carlos Jung [facility] 08-18-2022 04:06-0400 Systolic blood pressure 107 mm[Hg] Luis Carlos Jung [facility] 08-13-2022 20:04-0400 Hourly Rounding Luis Carlos Jung [facility] Comment on above: Result Comment: Patient discharged off u nit. Discharge instructions were reviewed. Pt walks off unit without any notable signs or symtpoms of distress. 08-13-2022 19:45-0400 Hourly Rounding Luis Carlos Jung [facility] 08-13-2022 19:45-0400 Hourly Rounding Summit Campusten [facility] Comment on above: Result Comment: Patient sitting in bed. BPP results reviewed with patient. Pt denied any additional questions. Call light within reach. 08-13-2022 18:12-0400 Heart rate 88 /min Luis Carlos Jung [facility] 08-13-2022 18:12-0400 Nursing Progress Note Reason Other: Pt updated on orders received from . jose understanding Luis Carlos Jung [facility] 08-13-2022 18:12-0400 SaO2% (BldA) [Mass fraction] 99 % Luis Carlos Jung [facility] 08-13-2022 17:33-0400 Body temperature 97.88 [degF] Luis Carlos Jung [facility] 08-13-2022 17:33-0400 Diastolic blood pressure 72 mm[Hg] Luis Carlos Jnug [facility] 08-13-2022 17:33-0400 Mean blood pressure 88 mm[Hg] Luis Carlos Jung [facility] 08-13-2022 17:33-0400 Respiratory rate 18 /min Luis Carlos Jung [facility] 08-13-2022 17:33-0400 Systolic blood pressure 121 mm[Hg] Luis Carlos Jung [facility] 07-26-2022 10:22-0400 Hourly Rounding Luis Carlos Jung [facility] Comment on above: Result Comment: discharge instructions p rovided and pt signs discharge consent with RN witness. pt preparing for discharge, belly band placed on pt. RN offers wheelchair exit for discharge and pt declines and wants to walk down on own. 07-26-2022 10:22-0400 Promise to Return Luis Carlos Jung [facility] 07-26-2022 10:00-0400 Hourly Rounding Luis Carlos Jung [facility] 07-26-2022 10:00-0400 Promise to Return Luis Carlos Jung [facility] 07-26-2022 09:15-0400 Blood Pressure Location Luis Carlos Jung [facility] 07-26-2022 09:15-0400 Body temperature 97.7 [degF] Luis Carlos Jung [facility] 07-26-2022 09:15-0400 Diastolic blood pressure 62 mm[Hg] Luis Carlos Jung [facility] 07-26-2022 09:15-0400 Heart rate 70 /min Luis Carlos Jung [facility] 07-26-2022 09:15-0400 Hourly Rounding Luis Carlos Jung [facility] 07-26-2022 09:15-0400 Mean blood pressure 74 mm[Hg] Luis Carlos Montesinosten [facility] 07-26-2022 09:15-0400 Respiratory rate 18 /min Luis Carlos Jung [facility] 07-26-2022 09:15-0400 Systolic blood pressure 97 mm[Hg] Luis Carlos Jung [facility] 07-26-2022 09:00-0400 Promise to Return Luis Carlos Jung [facility] 07-26-2022 08:14-0400 Body temperature 98.06 [degF] Luis Carlos Jung [facility] 07-26-2022 08:14-0400 Diastolic blood pressure 66 mm[Hg] Luis Carlos Jung [facility] 07-26-2022 08:14-0400 Heart rate 81 /min Luis Carlos Jung [facility] 07-26-2022 08:14-0400 Mean blood pressure 80 mm[Hg] Luis Carlos Jung [facility] 07-26-2022 08:14-0400 Respiratory rate 18 /min Luis Carlos Jung [facility] 07-26-2022 08:14-0400 Systolic blood pressure 109 mm[Hg] Luis Carlos Montesinosten [facility] 07-17-2022 09:07-0400 Body temperature 97.88 [degF] Ko Piter [facility] 07-17-2022 09:07-0400 Diastolic blood pressure 74 mm[Hg] Ko Dumas [facility] 07-17-2022 09:07-0400 Heart rate 85 /min Ko Dumas [facility] 07-17-2022 09:07-0400 Respiratory rate 16 /min Ko Dumas [facility] 07-17-2022 09:07-0400 SaO2% (BldA) [Mass fraction] 100 % Ko Dumas [facility] 07-17-2022 09:07-0400 Systolic blood pressure 117 mm[Hg] Ko Dumas [facility] 06-26-2022 21:38-0400 Blood Pressure Location Luis Carlos Jung [facility] 06-26-2022 21:38-0400 Diastolic blood pressure 61 mm[Hg] Luis Calros Jung [facility] 06-26-2022 21:38-0400 Heart rate 83 /min Luis Carlos Jung [facility] 06-26-2022 21:38-0400 Hourly Rounding Luis Carlos Jung [facility] Comment on above: Result Comment: discharged ambulatory to pov 06-26-2022 21:38-0400 Mean blood pressure 75 mm[Hg] Luis Carlos Jung [facility] 06-26-2022 21:38-0400 Respiratory rate 16 /min Luis Carlos Jung [facility] 06-26-2022 21:38-0400 Systolic blood pressure 102 mm[Hg] Luis Carlos Montesinosten [facility] 06-26-2022 21:15-0400 Blood Pressure Location Luis Carlos Jung [facility] 06-26-2022 21:15-0400 Diastolic blood pressure 64 mm[Hg] Luis Carlos Jung [facility] 06-26-2022 21:15-0400 Heart rate 74 /min Luis Carlos Jung [facility] 06-26-2022 21:15-0400 Hourly Rounding Luis Carlos Jung [facility] 06-26-2022 21:15-0400 Mean blood pressure 78 mm[Hg] Luis Carlos Jung [facility] 06-26-2022 21:15-0400 Respiratory rate 16 /min Luis Carlos Jung [facility] 06-26-2022 21:15-0400 Systolic blood pressure 106 mm[Hg] Luis Carlos Jung [facility] 06-26-2022 21:05-0400 Body temperature 97.88 [degF] Luis Carlos Jung [facility] 06-26-2022 21:05-0400 Respiratory rate 18 /min Luis Carlos Jung [facility] 06-26-2022 21:00-0400 Hourly Rounding Luis Carlos Jung [facility] Comment on above: Result Comment: ice water given 06-19-2022 01:30-0400 Hourly Rounding Luis Carlos Jung [facility] Comment on above: Result Comment: updated on plan of care after speaking to dr jung. verb understanding and all d/c instructions provided. denies further needs/concerns. ambulates off unit without any further questions. 06-19-2022 01:00-0400 Hourly Rounding Luis Carlos Fabiana [facility] Comment on above: Result Comment: rests in bed on phone. d enies any needs. denies any pain at this time or any pain or cramping since arrival. call light within reach 06-19-2022 00:15-0400 Hourly Rounding Luis Carlos Jung [facility] 06-18-2022 23:54-0400 Body temperature 97.88 [degF] Luis Carlos Jung [facility] 06-18-2022 23:54-0400 Diastolic blood pressure 65 mm[Hg] Luis Carlos Jung [facility] 06-18-2022 23:54-0400 Heart rate 76 /min Luis Carlos Jung [facility] 06-18-2022 23:54-0400 Mean blood pressure 81 mm[Hg] Luis Carlos Jung [facility] 06-18-2022 23:54-0400 Respiratory rate 18 /min Luis Carlos Jung [facility] 06-18-2022 23:54-0400 Systolic blood pressure 112 mm[Hg] Luis Carlos Jung [facility] 06-18-2022 23:45-0400 Blood Pressure Location Luis Carlos Jung [facility] 05-01-2022 17:45-0400 Hourly Rounding Luis Carlos Jung [facility] Comment on above: Result Comment: reviewed disch inst and meds to take states understanding 05-01-2022 17:30-0400 Hourly Rounding Luis Carlos Jung [facility] 05-01-2022 17:23-0400 Body temperature 98.06 [degF] Luis Carlos Jung [facility] 05-01-2022 17:23-0400 Diastolic blood pressure 57 mm[Hg] Luis Carlos Jung [facility] 05-01-2022 17:23-0400 Heart rate 83 /min Luis Carlos Jung [facility] 05-01-2022 17:23-0400 Mean blood pressure 71 mm[Hg] Luis Carlos Jung [facility] 05-01-2022 17:23-0400 Respiratory rate 16 /min Luis Carlos Jung [facility] 05-01-2022 17:23-0400 Systolic blood pressure 99 mm[Hg] Luis Carlos Jung [facility] 05-01-2022 17:15-0400 Blood Pressure Location Luis Carlos Jung [facility] 05-01-2022 17:15-0400 Hourly Rounding Luis Carlos Jung [facility] 04-02-2022 13:30-0400 Hourly Rounding Luis Carlos Jung [facility] Comment on above: Result Comment: pt given discharge instr uctions at this time to follow up with fabiana sunday or states understanding to call office tomorrow for appointment 04-02-2022 12:30-0400 Hourly Rounding Luis Carlos Jung [facility] Comment on above: Result Comment: pt returns to bed from estroo at this time denies discomfort at this time 04-02-2022 11:30-0400 Hourly Rounding Luis Carlos Jung [facility] Comment on above: Result Comment: pt sitting in bed at thi s time denies needs or discomfort 04-02-2022 06:28-0400 Body temperature 99.68 [degF] Luis Carlos Jung [facility] 04-02-2022 06:28-0400 Diastolic blood pressure 68 mm[Hg] Luis Carlos Fabiana [facility] 04-02-2022 06:28-0400 Heart rate 89 /min Luis Carlos Fabiana [facility] 04-02-2022 06:28-0400 Heart rate 86 /min Luis Carlos Jung [facility] 04-02-2022 06:28-0400 Mean blood pressure 83 mm[Hg] Luis Carlos Jung [facility] 04-02-2022 06:28-0400 Respiratory rate 20 /min Luis Carlos Jung [facility] 04-02-2022 06:28-0400 SaO2% (BldA) [Mass fraction] 98 % Luis Carlos Jung [facility] 04-02-2022 06:28-0400 Systolic blood pressure 114 mm[Hg] Luis Carlos Jung [facility] 03-23-2022 21:08-0400 Hourly Rounding Luis Carlos Fabiana [facility] Comment on above: Result Comment: Patient ambulatory off u nit. No signs or symptoms of distress noted. 03-23-2022 20:35-0400 Hourly Rounding Luis Carlos Jung [facility] Comment on above: Result Comment: Patient updated on plan of care. Verbalizes understanding. Call light in reach. 03-23-2022 19:49-0400 Blood Pressure Location Luis Carlos Jung [facility] 03-23-2022 19:49-0400 Body temperature 98.78 [degF] Luis Carlos Jung [facility] 03-23-2022 19:49-0400 Diastolic blood pressure 66 mm[Hg] Luis Carlos Jung [facility] 03-23-2022 19:49-0400 Heart rate 69 /min Luis Carlos Jung [facility] 03-23-2022 19:49-0400 Hourly Rounding Luis Carlos Jung [facility] Comment on above: Result Comment: Patient arrives on unit. 03-23-2022 19:49-0400 Mean blood pressure 79 mm[Hg] Luis Carlos Jung [facility] 03-23-2022 19:49-0400 Respiratory rate 16 /min Luis Carlos Jung [facility] 03-23-2022 19:49-0400 Systolic blood pressure 106 mm[Hg] Luis Carlos Jung [facility] 10-14-2020 13:15-0500 Pulse (Heart Rate) 74 /min [facility] 10-14-2020 13:15-0500 Pulse Oximetry 98 % [facility] 10-14-2020 13:15-0500 Respiratory Rate 16 /min [facility] 10-14-2020 13:00-0500 BP Diastolic 74 mm[Hg] [facility] 10-14-2020 13:00-0500 BP Systolic 123 mm[Hg] [facility] 10-14-2020 10:13-0500 BMI (Body Mass Index) 34.33 kg/m2 [facility] 10-14-2020 10:13-0500 Body Temperature 97.81 [degF] [facility] 10-14-2020 10:13-0500 Body weight 90.72 kg [facility] 10-14-2020 10:13-0500 Height 162.6 cm [facility] 08-09-2020 20:33-0400 BP Diastolic 81 mm[Hg] [place] 08-09-2020 20:33-0400 BP Systolic 122 mm[Hg] [place] 08-09-2020 20:33-0400 Pulse (Heart Rate) 78 /min [place] 08-09-2020 20:33-0400 Respiratory Rate 16 /min [place] 08-09-2020 19:03-0400 BMI (Body Mass Index) 39.48 kg/m2 [place] 08-09-2020 19:03-0400 Body Temperature 98.29 [degF] Bakari Albarado [facility] [place], [place] 08-09-2020 19:03-0400 Body weight 104.33 kg Bakari Albarado [facility], [place] 08-09-2020 19:03-0400 Height 162.6 cm Bakari Albarado [facility] [place] 08-09-2020 19:03-0400 Pulse Oximetry 98 % Bakari Albarado [facility], [place] Encounters Encounter Date Encounter Type Care Provider Facility Start: 11-27-2023 Bamboo flowsheet Rashaun Perry D O Work Phone: [facility] Start: 11-27-2023 Bamboo flowsheet Rashaun Perry D O Work Phone: [facility] Start: 11-27-2023 End: 11-27-2023 Office outpatient visit 15 minutes Rashaun Perry DO Work Phone: [facility] Comment on above: Third trimester preg anh; Hypothyroidism (acquired) ([facility]) Start: 11-20-2023 End: 11-20-2023 ambulatory RASHAUN PERRY Not Available Start: 11-20-2023 End: 11-20-2023 Office outpatient visit 15 minutes Rashaun Perry DO Work Phone: [facility] Comment on above: Third trimester preg anh Start: 11-06-2023 End: 11-06-2023 ambulatory RASHAUN PERRY Not Available Start: 11-04-2023 End: 11-04-2023 OB Triage Rashaun R PERRY [facility] Start: 10-31-2023 End: 10-31-2023 ambulatory RASHAUN PERRY Not Available Start: 10-18-2023 End: 10-18-2023 ambulatory DODIE MILLER Not Available Start: 10-03-2023 End: 10-03-2023 ambulatory DODIE ANGELA Not Available Start: 09-12-2023 End: 09-12-2023 ambulatory RASHAUN PERRY Not Available Start: 08-23-2023 End: 08-23-2023 Lab Drop off ZORAN Duke ELEN [facility] Start: 08-23-2023 End: 08-24-2023 ambulatory INSTALLATION SUPERVISOR ZORAN MYRICK Facility:[facility] Start: 08-19-2023 End: 09-14-2023 Pre-admission assessment Julia Haywood [facility] Start: 08-18-2023 End: 08-18-2023 ambulatory DO Julia Haywood Facility:[facility] Start: 08-18-2023 End: 08-18-2023 OB Triage Julia Haywood [facility] Start: 07-25-2023 End: 07-25-2023 Emergency department patient visit Kristian Guillermo Facility:[facility] Start: 07-25-2023 End: 07-25-2023 Emergency department patient visit Kristian Guillermo [facility] Start: 06-28-2023 End: 06-29-2023 ambulatory Roverto Crow. Spasic Facility:[facility] Start: 06-28-2023 End: 06-28-2023 Patient encounter procedure Roverto V. Spasic [facility] Start: 06-14-2023 End: 06-14-2023 Emergency department patient visit Kristian Guillermo Facility:[facility] Start: 06-14-2023 End: 06-14-2023 Emergency department patient visit Kristian Guillermo [facility] Start: 06-12-2023 End: 06-13-2023 ambulatory Luis Carlos Jung Facility:[facility] Start: 06-12-2023 End: 06-12-2023 Patient encounter procedure Luis Carlos Jung [facility] Start: 05-21-2023 End: 05-22-2023 Emergency department patient visit DO Gopi Rodriguez Facility:[facility] Start: 05-21-2023 End: 05-21-2023 Emergency department patient visit Gopi Rodriguez [facility] Start: 04-30-2023 End: 05-01-2023 ambulatory Luis Carlos Jung Facility:[facility] Start: 04-30-2023 End: 04-30-2023 Lab Drop off Luis Carlos Jung [facility] Start: 04-30-2023 End: 05-01-2023 ambulatory Luis Carlos Jung Facility:[facility] Start: 04-30-2023 End: 04-30-2023 Patient encounter procedure Luis Carlos Byrd Fabiana [facility] Start: 04-26-2023 End: 04-26-2023 Emergency department patient visit Laura Sotelorob Facility:[facility] Start: 04-26-2023 End: 04-26-2023 Emergency department patient visit Laura Sotelorob [facility] Start: 01-31-2023 End: 01-31-2023 Emergency department patient visit Kristian Guillermo Facility:[facility] Start: 01-31-2023 End: 01-31-2023 Emergency department patient visit Kristian Guillermo [facility] Start: 09-24-2022 End: 09-27-2022 Evaluation and management of inpatient Luis Carlos Jung Facility:[facility] Start: 09-22-2022 End: 09-22-2022 ambulatory Luis Carlos Jung Facility:[facility] Start: 09-22-2022 End: 09-22-2022 OB Triage Luis Carlos Jung [facility] Start: 09-20-2022 End: 09-20-2022 ambulatory Luis Carlos Jung Facility:[facility] Start: 09-20-2022 End: 09-20-2022 OB Triage Luis Carlos Jung [facility] Start: 09-19-2022 End: 09-19-2022 ambulatory Jj MIKE Facility:[facility] Start: 09-19-2022 End: 09-19-2022 OB Triage Jj MIKE [facility] Start: 09-14-2022 End: 09-14-2022 ambulatory Luis Carlos Jung Facility:[facility] Start: 09-14-2022 Emergency department patient visit DO Gopi Rodriguez Facility:[facility] Start: 09-14-2022 End: 09-14-2022 OB Triage Luis Carlos Jung [facility] Start: 09-12-2022 End: 09-12-2022 ambulatory Luis Carlos Jung Facility:[facility] Start: 09-12-2022 End: 09-12-2022 OB Triage Luis Carlos Jung [facility] Start: 09-08-2022 End: 09-08-2022 ambulatory Luis Carlos Jung Facility:[facility] Start: 09-08-2022 End: 09-08-2022 OB Triage Luis Carlos Jung [facility] Start: 09-06-2022 End: 12-06-2022 ambulatory Luis Carlos Jung Facility:[facility] Start: 09-05-2022 End: 09-06-2022 Emergency department patient visit DO Carrolrandymarknadia [place] Facility:[facility] Start: 09-05-2022 End: 09-05-2022 Emergency department patient visit Gopi Rodriguez [facility] Start: 09-05-2022 End: 12-05-2022 Patient encounter procedure SELF REFERRAL [facility] Start: 09-04-2022 End: 09-05-2022 ambulatory Luis Carlos Byrd Fabiana Facility:[facility] Start: 09-04-2022 End: 09-04-2022 Lab Drop off Luis Carlos Rochelle Jung [facility] Start: 08-30-2022 End: 08-31-2022 ambulatory Luis Carlos Rochelle Jung Facility:[facility] Start: 08-30-2022 End: 08-31-2022 OB Triage Luis Carlos Rochelle Jung [facility] Start: 08-22-2022 End: 08-22-2022 OB Triage Luis Carlos Jung [facility] Start: 08-18-2022 End: 08-18-2022 OB Triage Luis Carlos Jung [facility] Start: 08-13-2022 End: 08-13-2022 OB Triage Luis Carlos Jung [facility] Start: 07-26-2022 End: 07-26-2022 OB Triage Luis Carlos Jung [facility] Start: 07-17-2022 End: 07-17-2022 Emergency department patient visit Ko Dumas [facility] Start: 06-28-2022 End: 06-28-2022 Patient encounter procedure Luis Carlos Jung [facility] Start: 06-26-2022 End: 06-26-2022 OB Triage Luis Carlos Jung [facility] Start: 06-20-2022 End: 07-15-2022 Pre-admission assessment Luis Carlos Jung [facility] Start: 06-18-2022 End: 06-19-2022 OB Triage Luis Carlos Jung [facility] Start: 05-02-2022 End: 06-15-2022 Pre-admission assessment THANG MILLAN [facility] Start: 05-01-2022 End: 05-01-2022 OB Triage Luis Carlos Jung [facility] Start: 04-02-2022 End: 04-02-2022 OB Triage Luis Carlos Jung [facility] Start: 03-23-2022 End: 03-23-2022 OB Triage Luis Carlos Jung [facility] Start: 03-16-2022 End: 03-16-2022 Patient encounter procedure Luis Carlos Rochelle Jung [facility] Start: 02-15-2022 End: 02-15-2022 Lab Drop off Luis Carlos Rochelle Jung [facility] Start: 02-23-2021 End: 02-23-2021 Patient encounter procedure Martha Webb MD Work Phone: [facility] Start: 02-23-2021 Results Only Martha Webb MD Work Phone: Gastroenterology Start: 10-14-2020 End: 10-14-2020 Emergency department patient visit PHYSICIAN RONN [facility] Start: 10-14-2020 End: 10-14-2020 Emergency department patient visit Regine Floresel Work Phone: [facility] Emergency Department Comment on above: Vertigo (Primary Dx) Start: 08-09-2020 End: 08-09-2020 Emergency department patient visit [facility] Start: 08-09-2020 End: 08-09-2020 Emergency department patient visit Bakari [facility] Work Phone: [facility] ED Comment on above: Contusion of right k nee, initial encounter (Primary Dx); Contusion of multiple sites of right shoulder and upper arm, initial encounter Start: 07-23-2017 End: 07-23-2017 Emergency department patient visit NKECHI TORRES [facility] Gu[facility] Procedures Date Procedure Procedure Detail Performing Clinician Start: 11-27-2023 Urnls dip stick/tablet rgnt non-auto w/o micrscp Rashaun Perry DO Work Phone: Start: 11-20-2023 Urnls dip stick/tablet rgnt non-auto w/o micrscp Rashaun Perry DO Work Phone: Start: 04-30-2023 Microscopic observation [Identifier] in Cervix by Cyto stain Rashaun Perry DO Work Phone: Start: 02-23-2021 PT ED [...] 05-12-2028 Tetanus vaccination Tetanus: Every 1 0yrs [facility] Start: 04-30-2028 Screening for malign ant neoplasm of cervix [facility] Start: 01-22-2024 End: 01-22-2024 Patient encounter procedure 01/22/2024 8:40 AM EDT Consult [facility] [address] [place] [address] Rashaun Amador, DO [address] [place] [address] [facility] Start: 12-04-2023 End: 12-04-2023 Patient encounter procedure 12/04/2023 9:00 AM EST Routine [facility] [address] [address] Rashaun Amador, DO [address] [place] [address] [facility] Start: 11-27-2023 End: 11-27-2024 Strep B DNA probe, amplification Strep B DNA probe, amplification Lab Routine Third trimester Expected: 11/27/2023 (Approximate), Expires: 11/27/2024 [facility] Work Phone: Comment on above: Expected: 11/27/2023 (Approximate), Expires: 11/27/2024 Start: 11-27-2023 End: 11-27-2023 Patient encounter procedure [facility] Comment on above: Arrived Start: 11-21-2023 End: 11-21-2023 Professional / ancillary services management 11/21/2023 8:30 AM EST Ancillary Procedure [facility] [address] [address] [facility] Start: 06-15-2021 Influenza vaccination INFLUENZ A (Season Ended) [facility] Start: 06-15-2020 Influenza vaccination Flu vaccine (# 1) [place], [place] Start: 2014 PAP TESTING PAP TESTING [facility] Start: 2014 Screening for malign ant neoplasm of cervix Cervical cancer screen [place], [place] Start: 2012 DTaP/Tdap/Td vaccine (1 - Tdap) DTaP/Tdap/Td vaccine (1 - Tdap) [place] Start: 2012 Urine microalbumin profile DTAP,TDAP,TD (1 - Tdap) [facility] Start: 2011 Hepatitis C antibody , confirmatory test Hepatitis C Screening [facility] Start: 2011 HEPATITIS C SCREENING HEPATITIS C SC YUE [facility] Start: 2011 HIV SCREENING HIV SCREENING [facility] Start: 2008 HIV screening [place], [place] Start: 2005 Adolescent depressio n screening assessment [facility] Start: 2004 HPV vaccine (1 - 2-d ose series) HPV vaccine (1 - 2-dose series) [place], [place] Start: 1996 History and physical examination, annual for health maintenance Wellness Visit [facility] Start: 1994 Varicella vaccine (1 of 2 - 2-dose childhood series) Varicella vaccine (1 of 2 - 2-dose childhood series) [place], [place] Start: 1993 Screening for malign ant neoplasm of cervix Pap Smear [facility] PT ED PATIENT INFORMATION PT ED PATIENT INFORMATION Other 02/23/2021 [facility] Immunizations Immunization Date Immunization Notes Care Provider Lennox ramirez 08-18-2023 influenza, seasonal, injectable Julia Yobany [facility] 09-25-2022 influenza, seasonal, injectable SELF REFERRAL [facility] Comment on above: Early/Late Reason: E isaac/Late Reason: Nursing Judgment 01-28-2021 COVID-19, mRNA, LNP- S, PF, 30 mcg/0.3 mL dose; Translations: [[email or web address] COVID-19 Vaccine] Luis Carlos Jung [facility] Comment on above: Reason for Medicatio n: Prophylaxis Reason for Medicatio n: Prophylaxis 12-31-2020 COVID-19, mRNA, LNP- S, PF, 30 mcg/0.3 mL dose; Translations: [[email or web address]-Proper Cl[employer]obi COVID-19 Vaccine] Luis Carlos Jung [facility] Comment on above: Reason for Medicatio n: Prophylaxis Reason for Medicatio n: Prophylaxis 05-12-2018 tetanus toxoid, reduced diphtheria toxoid, and acellular pertussis vaccine, adsorbed; Translations: [Adacel (Tdap)] Luis Carlos Jung [facility] Payers Date Payer Category Payer Medicaid [employer] [employer] [id number] 2022-Present [address] [place] [address] [id number] 2019 Unknown [id number] 2019 Unknown [id number] [id number] 1993 Unknown [id number] 2.16.840.1.881413.3.579.2.173 1993 Unknown [id number] 2.16.840.1.997238.3.579.2.903 1993 Unknown [id number] 2.16.840.1.954381.3.579.2.727 1993 Unknown [id number] 2.16.840.1.782237.3.579.2.727 1993 Unknown [id number] 2.16.840.1.634743.3.579.2.727 1993 Unknown [id number] 2.16.840.1.321159.3.579.2.727 1993 Unknown [id number] 2.16.840.1.470095.3.579.2.72 1993 Unknown [id number] 2.16.840.1.741684.3.579.2. 1993 Unknown [id number] 2.16.840.1.733294.3.579.2. 1993 Unknown [id number] 2.16.840.1.940525.3.579.2 1993 Unknown [id number] 2.16.840.1.031757.3.579.2 1993 Unknown [id number] 2.16.840.1.992544.3.579.2 1993 Unknown [id number] 2.16.840.1.718900.3.579.2 1993 Unknown [id number] 2.16.840.1.609683.3.579.2 1993 Unknown [id number] 2.16.840.1.166160.3.579.2 1993 Unknown [id number] 2.16.840.1.067342.3.579.2 1993 Unknown [id number] 2.16.840.1.574253.3.579.2. 1993 Unknown [id number] 2.16.840.1.573600.3.579.2 1993 Unknown [id number] 2.16.840.1.032653.3.579.2 1993 Unknown [id number] 2.16.840.1.077975.3.579.2 1993 Unknown [id number] 2.16.840.1.585378.3.579.2 1993 Unknown [id number] 2.16.840.1.673677.3.579.2. 1993 Unknown [id number] 2.16.840.1.350418.3.579.2.727 1993 Unknown [id number] 2.16.840.1.500516.3.579.2.727 1993 Unknown [id number] 2.16.840.1.547810.3.579.2.727 1993 Unknown [id number] 2.16.840.1.692321.3.579.2.727 1993 Unknown [id number] 2.16.840.1.984786.3.579.2.1259 1993 Unknown [id number] 2.16.840.1.235813.3.579.2.1259 1993 Unknown [id number] 2.16.840.1.311200.3.579.2.1259 1993 Unknown [id number] 2.16.840.1.722015.3.579.2.1259 1993 Unknown [id number] 2.16.840.1.346200.3.579.2.1259 1993 Unknown [id number] 1995 Unknown [id number] Social History Date Type Detail Facility Start: 08-09-2020 End: 10-14-2020 Tobacco smoking status NHIS Current every day smoker [place] Start: 08-09-2020 End: 10-14-2020 Tobacco use and exposure Never used [place] Start: 10-14-2020 Alcohol intake Ex-drinker (finding) [facility] Start: 1995 Sex Assigned At Not on file [place] Exposure to SARS-CoV -2 (event) Not sure [place] Start: 08-09-2020 Cigarettes smoked current (pack per day) - Reported [place] Start: 08-09-2020 Alcohol intake Lifetime non-d val (finding) [place] Start: 08-09-2020 [facility] SDOH [facility] Start: 07-06-2021 End: 08-18-2022 Tobacco smoking status Light tobacco smoker (finding) [facility] Sex Assigned At Female [facility] Tobacco [facility] Comment on above: current current denies Start: 06-28-2023 Tobacco smoking status Ex-smoker (fi nding) [facility] Comment on above: current Tobacco smoking status Never [facility] Comment on above: current Tobacco smoking status No Smokin g Status Entered [facility] Tobacco smoking stat NHIS Tobacco smoking consumption unknown [facility] Start: 04-02-2023 [facility] Start: 1995 Sex Assigned At Female [facility] Start: 07-03-2023 Gender identity Identifies as female gender (finding) [facility] Start: 07-03-2023 Sexual orientation Heterosexual (fin ding) [facility] Goals Date Patient Goal Desired Activity /State Personal health goal Functional Status Date Assessment Result Facility 11-04-2023 Functional Status N/A [facility] 08-18-2023 Functional Status N/A [facility] 07-25-2023 Functional Status N/A [facility] 06-28-2023 Functional Status N/A [facility] 06-14-2023 Functional Status N/A [facility] 05-21-2023 Functional Status N/A [facility] 04-26-2023 Functional Status N/A [facility] 01-31-2023 Functional Status N/A [facility] 09-22-2022 Functional Status N/A [facility] 09-20-2022 Functional Status N/A [facility] 09-19-2022 Functional Status N/A [facility] 09-14-2022 Functional Status N/A [facility] 09-12-2022 Functional Status N/A [facility] 09-08-2022 Functional Status N/A [facility] 09-05-2022 Functional Status Yes [facility] 08-30-2022 Functional Status N/A [facility] 08-22-2022 Functional Status N/A [facility] 08-18-2022 Functional Status N/A [facility] 08-13-2022 Functional Status N/A [facility] 07-26-2022 Functional Status N/A [facility] 07-17-2022 Functional Status N/A [facility] 06-26-2022 Functional Status N/A [facility] 06-18-2022 Functional Status N/A [facility] 05-01-2022 Functional Status N/A [facility] 04-02-2022 Functional Status N/A [facility] Clinical Notes 03-10-2021 to 11-27-2023 Althea Suggs SYSTEMS DESIGNER - 11/27/2023 8:30 AM Alessandro Suggs, SYSTEMS DESIGNER - 11/20/2023 11:10 AM EST Note Date & Type Note Facility 11-27-2023 History of Present illness Narrative Reason for Appointment: Patient ID: Susan Bro is a 28 y.o. female who presents for Routine Visit Patient presents today for Return OB appointment. Current Medications: has a current medication list which includes the following prescription(s): citalopram, levothyroxine, mv-min-fe fum-fa-dha, and senna-docusate. Medical History: Active Ambulatory Problems Diagnosis Date [...] Constitutional: Appearance: Normal appearance. She is well-developed. Genitourinary: Vulva normal. Cardiovascular: Rate and Rhythm: Normal rate and [...] nursing note reviewed. Exam conducted with a dry goods inspector present. Vitals: There is no height or weight on file to calculate BMI. BP: 114/78 Patient's last menstrual period was 03/19/2023. Assessment/Plan Encounter Diagnoses Name Primary? Third trimester Hypothyroidism (acquired) (CMS/[facility]) Patient is doing well but has complaints of being tired and having maternal discomfort due to . Pt doing well on Celexa. Will continue on prescribed dose. Patient verbalized frequent movement and was instructed to perform kick counts three times per day. labor precautions were given, LARC consent was signed/declined, and GBS was obtained. Cervical check was performed and patient is 1cm dilated. Follow Up: Patient is to return to office in 1 week for routine OB apptment Documented by Althea Suggs LPN on behalf of: Rashaun Amador DO documented in this encounter [facility] 11-20-2023 History of Present illness Narrative Reason [...] nursing note reviewed. Exam conducted with a dry goods inspector present. Vitals: There is no height or [...] Rashaun Amador DO documented in this encounter [facility] 11-04-2023 Evaluation + Plan note Diagnostic Tests PendingUrine Culture 11/04/23 [facility] 11-04-2023 Hospital Discharge instructions Follow Up Care 11/04/2023 07:55:34 With:Rashaun AMADOR Address: [address] , [place] [address] [facility] (1) When:11/06/2023 Comments:Call for any problems.Appointment has already been scheduledCall physician if symptoms worsenPlease call if you need to rescheduleReturn for contractions closer, longer, harderReturn for decreased movementReturn if ruptured membranes or vaginal bleeding [facility] 08-23-2023 Evaluation + Plan note Diagnostic Tests PendingT3 Total 08/23/23 [facility] 08-18-2023 Note The following Any t Education Materials have been given to the patient: EducationMaterial [facility] 08-18-2023 Hospital Discharge instructions Patient Education 08/18/2023 08:14:46 Second Trimester of , Bsah-xy-Xiec Second Trimester of The second trimester of [...] Follow these instructions at home: Medicines Take uxtc-lfa-dekioou and prescription medicines only as told by [...] a counselor. Where to find more information [place] Association: americanpregnancy.org [place] [employer]nec[employer]: www.acog.org Office [...] provider. Document Revised: 03/09/2021 Document Reviewed: 01/13/2021 [employer] Patient Education 2022 SmartCare system. [facility] 07-25-2023 Evaluation + Plan note Extrac francisca [...] Diagnostic Tests Pending * Urine Culture 07/25/23 [facility]10-11-2023 Hospital Discharge instructions Patient Education 07/25/2023 09:56:41 [...] to keep your urine pale yellow. Take hmri-ysv-xsqrupv and prescription medicines only as told by [...] provider. Document Revised: 06/14/2021 Document Reviewed: 06/14/2021 [employer] Patient Education 2022 SmartCare system. Follow Up Care 07/25/2023 08:14:26 With:Luis Carlos Jung Address: [facility] [place] [id number] [facility] (1) When:07/28/2023 09:56:27 [facility]09-14-2023 Evaluation + Plan note Diagnostic Tests Pending * Urine Culture 06/28/23 [facility]09-14-2023 Hospital Discharge instructions Patient Education 06/28/2023 11:39:14 Urinary Tract Infection, Adult, Ojwp-rf-Gjhu Urinary Tract Infection, Adult A urinary tract [...] Follow these instructions at home: Medicines Take thdr-lar-ffdcpkh and prescription medicines only as told by [...] provider. Document Revised: 05/13/2021 Document Reviewed: 05/13/2021 [employer] Patient Education 2022 SmartCare system. 06/28/2023 11:39:14 Urinary Tract Infection, Adult, Dmxm-tt-Epcc Urinary Tract Infection, Adult A urinary tract [...] Follow these instructions at home: Medicines Take bocs-oeg-oxarxfb and prescription medicines only as told by [...] provider. Document Revised: 05/13/2021 Document Reviewed: 05/13/2021 [employer] Patient Education 2022 SmartCare system. Follow Up Care 06/28/2023 10:22:58 With:Fabiana MARION, Luis Carlos Byrd, ORS Address: [address], [facility] [address] [place] [address]- When: Unknown [facility] 08-31-2023 Evaluation + Plan noteExtracted from: Title:ED Note Author:Jos Ugalde PA-C te:06/14/23 1. Abdominal pain (R10.9: Un specified abdominal pain) Orders: ABO/Rh Automated Diff Basic Metabolic Panel Beta hCG Quantitative CBC w/ Auto Diff eGFR Extra Blue Tube Extra SST Tube Hepatic Function Panel Lipase Level UA With Cult Reflex US 1st Trimester [facility]08-08-2023 Hospital Discharge instructions Patient Education 05/21/2023 23:23:44 Nonspecific Chest Pain, Adult, Frfn-ks-Fdcy Nonspecific Chest Pain Chest pain can be [...] Follow these instructions at home: Medicines Take exzy-jzo-kaubqeg and prescription medicines only as told by [...] a heart-healthy diet. A diet and nutritional services cook (dietitian) can help you to learn healthy [...] provider. Document Revised: 12/15/2021 Document Reviewed: 12/15/2021 [employer] Patient Education 2022 SmartCare system. 05/21/2023 23:23:44 Nausea and Vomiting, Adult, Lwud-hd-Jhsx Nausea and Vomiting, Adult Nausea is feeling [...] fruit juice). ?Low-calorie sports drinks. Eat bland, mzkc-cm-wwdfuc foods in small amounts as you are able, such as: ?Bananas. ?Applesauce. ?Rice. ?Low-fat (lean) meats. ?[place]. ?Crackers. Avoid drinking fluids that have a lot of sugar or caffeine in them. This includes energy drinks, sports drinks, and soda. Avoid alcohol. Avoid spicy or fatty foods. General instructions Take fwdm-dnc-hktculz and prescription medicines only as told by your doctor. Drink enough fluid to keep your pee (urine) pale yellow. Wash your hands often with soap and water for at least 20 seconds. If you cannot use soap and water, use hand hospital chaplain. Make sure that everyone in your home [...] your doctor about eating and drinking. Take gvoh-hgp-eyckzvx and prescription medicines only as told by your doctor. Contact your doctor if your symptoms get worse or you have new symptoms. Keep all follow-up visits. This information is not intended to replace advice given to you by your health care provider. Make sure you discuss any questions you have with your health care provider. Document Revised: 04/07/2022 Document Reviewed: 04/07/2022 [employer] Patient Education 2022 SmartCare system. 05/21/2023 23:23:44 Abdominal Pain During , Gefu-ky-Qbnz Abdominal Pain During Belly (abdominal) pain is [...] keep your pee (urine) pale yellow. Take sybb-hzh-onmaeep and prescription medicines only as told by [...] provider. Document Revised: 06/14/2021 Document Reviewed: 06/14/2021 [employer] Patient Education 2022 SmartCare system. Follow Up Care 05/21/2023 20:38:52 With:Luis Carlos Jung Address: [facility] [place] [id number] Business (1) When:05/24/2023 Comments:Take the Pepcid once daily until you have completed the course. You can use the Zofran every 6 hours as needed for nausea and vomiting. Please follow-up with your primary care doctor next 2 to 3 days. Please return to the ED for any new or worsening symptoms. [facility]08-07-2023 Evaluation + Plan noteExtracted from: Title:ED Note [...] day(s), # 15 cap(s), Refills(s) 0, Pharmacy: [facility], 162.6, cm, 05/21/23 20:50:00 EDT, Height/Length Dosing, 75.3, kg, 05/21/23 20:50:00 EDT, Weight Dosing famotidine, 20 mg = 2 mL, Soln-IV, IV Push, Once, Stop date 05/21/23 21:00:00 EDT, STAT, Start date 05/21/23 21:00:00 EDT, 05/21/23 21:00:00 EDT famotidine, 20 mg = 1 tab(s), Oral, Daily, # 14 tab(s), Refills(s) 0, Pharmacy: [facility] 1985, 162.6, cm, 05/21/23 20:50:00 EDT, Height/Length Dosing, 75.3, kg, 05/21/23 20:50:00 EDT, Weight Dosing ondansetron, 4 mg = 2 mL, Injection, IV Push, Once, Stop date 05/21/23 21:00:00 EDT, STAT, Start date 05/21/23 21:00:00 EDT, 05/21/23 21:00:00 EDT ondansetron, 4 mg = 1 tab(s), Oral, q8hr, # 12 tab(s), Refills(s) 0, Pharmacy: [facility], 162.6, cm, 05/21/23 20:50:00 EDT, [...] UA With Cult Reflex US 1st Trimester [facility]07-17-2023 Evaluation + Plan note Diagnostic Tests Pending * PAP [id number] 04/30/23 * Urine Culture 04/30/23 [facility]07-17-2023 Evaluation + Plan note Diagnostic Tests Pending * RPR with Conf Rfx 04/30/23 * HIV Screen 4th Generation wRfx 04/30/23 * Rubella Antibody IgG 04/30/23 * Hepatitis B Surface Antigen 04/30/23 [facility]07-13-2023 Evaluation + Plan noteExtracted from: Title:ED Note Author:Jos Ugalde PA-C te:04/26/23 Abdominal pain (R10.9: Unspe cified abdominal pain) (Z34.90: Encounter for supervision of normal , unspecified, unspecified trimester) Orders: Beta hCG Quantitative Extra Lav Tube Extra SST Tube US 1st Trimester US Transvaginal [facility]07-13-2023 Hospital Discharge instructions Patient Education 04/26/2023 11:11:44 [...] to keep your urine pale yellow. Take fryu-kmv-eywjbbl and prescription medicines only as told by [...] provider. Document Revised: 06/14/2021 Document Reviewed: 06/14/2021 [employer] Patient Education 2022 SmartCare system. Follow Up Care 04/26/2023 08:52:22 With:Luis Carlos Jung [facility] [address] [facility] [facility] [address] [place] [address] Business (1) When:04/29/2023 10:58:02 [facility]04-19-2023 Evaluation + Plan noteExtracted from: Title:ED Note [...] Head eGFR Oxygen Therapy PT & PTT [facility]04-19-2023 Hospital Discharge instructions Patient Education 01/31/2023 11:57:21 [...] Follow these instructions at home: Medicines Take tbgo-chy-pnngrct and prescription medicines only as told by your health care provider. Ask your health care provider if the medicine prescribed to you: ?Requires you to avoid driving or using heavy machinery. ?Can cause constipation. You may need to take these actions to prevent or treat constipation: ?Drink enough fluid to keep your urine pale yellow. ?Take vfac-kud-lbjyzon or prescription medicines. ?Eat foods that are [...] provider. Document Revised: 01/23/2020 Document Reviewed: 11/13/2019 [employer] Patient Education 2022 SmartCare system. Follow Up Care 01/31/2023 09:42:02 With:THANG MILLAN Address: [address] [place] [address] Business (1) When:02/03/2023 11:57:07 Comments:Call the office [...] fever, or any new or worsening symptoms. [facility]12-16-2022 [facility] Comment: Electronically Signed By: Luis Carlos Jung MD\.br\Date and Time Signed: 09/29/22 09:25 [id number] [facility] Comment on above:Result Comment: Electronically Signed By: Luis Carlos Jung MD\.br\Date and Time Signed: 09/29/22 09:25 [id number] NoteThe following Patient Education Materials have been given to the patient: [facility]2022 NoteThe following Patient Education Materials have been given to the patient: [facility]Material[facility] [id number] Hospital Discharge instructions Follow Up Care 09/22/2022 15:11:14 With:Luis Carlos Fabiana Address: [address], [facility] [address] [place] [address]- Business (1) When:09/24/2022 20:30:00 Comments:Appointment has already been scheduledCall for any problems.Call for fever > 100.5 FCall for severe abdominal painCall physician for heavy vaginal bleedingCall physician if symptoms worsenReturn for contractions closer, longer, harderReturn for decreased movementReturn if ruptured membranes or vaginal bleedingCall at 7:30 pm Sunday to confirm induction at 8:30 [facility]12-07-2022 NoteThe following Patient Education Materials have been given to the patient: [facility]12-06-2022 NoteThe following Patient Education Materials have been given to the patient: [facility]12-06-2022 Hospital Discharge instructions Follow Up Care 09/19/2022 01:24:08 With:Luis Carlos Jung Address: [address], [facility] [address] [place] [address]- Business (1) When:09/20/2022 Comments:Appointment has already been scheduledCall Dr if fever>100.5 F, heavy bleedingCall for any problems.Call for severe abdominal painCall physician for heavy vaginal bleedingCall physician if symptoms worsenReturn for contractions closer, longer, harderPlease call if you need to rescheduleReturn for decreased movementReturn if ruptured membranes or vaginal bleeding [facility]12-01-2022 NoteThe following Patient Education Materials have been given to the patient: [facility]12-01-2022 Hospital Discharge instructions Patient Education 09/14/2022 11:56:10 Sinus Headache, Shtv-fs-Tgln Sinus Headache A sinus headache happens when [...] on the bottle or box. Medicines Take nvmm-cls-urftval and prescription medicines only as told by [...] face, forehead, ears, or upper teeth. Take tyrs-uis-rugmfei and prescription medicines only as told by your doctor. If told, apply a warm, moist washcloth to your face. This can help to lessen pain. This information is not intended to replace advice given to you by your health care provider. Make sure you discuss any questions you have with your health care provider. Document Released: 01/31/2012 Document Revised: 09/13/2018 Document Reviewed: 07/12/2018 [employer] Patient Education 2020 [employer] Follow Up Care 09/14/2022 09:13:06 With:Luis Carlos Jung Address: [facility] [address], [address] [address]- [facility] (1) When:09/20/2022 Comments:Return if ruptured membranes or vaginal bleedingReturn for decreased movementReturn for contractions closer, longer, harderCall physician if symptoms worsenCall for severe abdominal painCall for fever > 100.5 F Drink 8-10 glasses of water/day Use SUDAFED, TYLENOL AND BENADRYL as previouslydirected by Dr Fabiana Longoria - [facility]11-29-2022 NoteThe following Patient Education Materials have been given to the patient: [facility] [place]11-29-2022 Hospital Discharge instructions Patient Education 09/12/2022 20:39:28 Third Trimester of , Gruv-yq-Hoaz Third Trimester of The third trimester is from week 28 through week 40 (months 7 through 9). This trimester is when your unborn baby (fetus) is growing very fast. At the end of the ninth month, the unborn baby is about20 inches in length. It weighs about 6 10 pounds. Follow these instructions at home: Medicines Take mlso-hhq-pajbuwr and prescription medicines only as told by [...] 12/26/2010 Document Revised: 01/22/2020 Document Reviewed: 11/06/2017 [employer] Patient Education 2020 SmartCare system. Follow Up Care 09/12/2022 19:44:10 With:Luis Carlos Jung Address: [facility] [address] [address] [facility] (1) When:09/20/2022 Comments:Appointment has already been scheduledCall Dr if fever>100.5 F, heavy bleedingCall for any problems.Call for severe abdominal painCall physician for heavy vaginal bleedingCall physician if symptoms worsenPlease call if you need to rescheduleReturn for contractions closer, longer, harderReturn for decreased movementReturn if ruptured membranes or vaginal bleeding [facility]11-25-2022 NoteThe following Patient Education Materials have been given to the patient: EducationMaterialFisher [facility]11-25-2022 Hospital Discharge instructions Follow Up Care 09/08/2022 08:14:23 With:Luis Carlos Jung Address: [facility] [address] [address] [facility] (1) When:09/11/2022 Comments:Return for contractions closer, longer, harderReturn for decreased movementReturn if rupturedmembranes or vaginal bleeding [facility]11-23-2022 Hospital Discharge instructions Patient Education 09/05/2022 22:13:40 [...] the coronavirus come from? In September 2019, [place] told the World Health Organization (WHO) of several cases of lung disease (human respiratory illness). These cases were linked to an open seafood and livestock market in the city of [facility]. The link to the seafood and livestock [...] and virus naming World Health Organization (WHO): www.who.int/emergencies/diseases/npwqa-bccvwwnyvko-1293/technical-g uidance/khjfch-pqf-zfanfdqwtrt-disease-(covid-2019)-kvi-hzr-edbvc-grpk-tetuqk-su Who is at risk for complications from [...] relieve his or her symptoms by using hgqe-jfl-lbgyvff medicines that treat sneezing, coughing, and runny [...] water are not available, use alcohol-based hand hospital chaplain. Avoid touching your face, mouth, nose, or [...] Prevention (CDC): www.cdc.gov/coronavirus/2019-ncov/travelers/index.html World Health Organization (WHO): www.who.int/emergencies/diseases/prwlu-jukfassrihn-2152/travel-advice Know the risks and take action to [...] water are not available, use alcohol-based hand hospital chaplain. Cough or sneeze into a tissue, sleeve, [...] in hot, soapy water or use a rn internal medicine. Air-dry your dishes. Wash laundry in hot [...] Health Organization (WHO) Information and news updates: www.who.int/emergencies/diseases/guokb-vwirminuhjw-8407 Coronavirus health topic: www.who.int/health-topics/coronavirus Questions and answers on COVID-19: www.who.int/news-room/q-a-detail/r-w-mpacvmkkpirdp Global tracker: [employer] [place] [employer] (AAP) Information for families: www.healthychildren.org/[place]/health-issues/conditions/chest-lungs/Pages /4088-Palcy-Zfgxadeeewv.aspx The coronavirus situation is changing rapidly. Check [...] 01/27/2020 Document Revised: 01/27/2020 Document Reviewed: 01/27/2020 [employer] Patient Education 2019 SmartCare system. 09/05/2022 22:13:40 COVID-19 COVID-19 COVID-19 is a [...] fight infection (immunocompromised). Live in a senior care or long-term care facility. Have a long-term [...] managed at home with rest, fluids, and qojt-two-lmgdvqv medicines. Treatment for a serious infection usually [...] are safe for you. General instructions Take errb-xqi-lwxnkzt and prescription medicines only as told by [...] water are not available, usean alcohol-based hand hospital chaplain. ?Avoid touching your mouth, face, eyes, or [...] water are not available, use alcohol-based hand hospital chaplain. Stay away from other members of your [...] a weak immunity, live in a senior care, or have chronic disease. There is no [...] 11/06/2019 Document Revised: 02/26/2020 Document Reviewed: 11/06/2019 [employer] Patient Education 2020 SmartCare system. Follow Up Care 09/05/2022 20:08:29 With:Luis Carlos Jung Address: [address] [place] [id number] Business (1) When:09/08/2022 21:42:10 Comments:Use the albuterol inhaler 2 puffs every 4 hours for the next 2 to 3 days, you can use the Zofran every 6 hours as needed for nausea and vomiting. Please follow-up with your primary care doctor in thenext 2 to 3 days. Please return to the ED for any new or worsening symptoms. With:THANG MILLAN Address: [address] [place] [id number] Business (1) When:09/08/2022 21:42:06 [facility]11-22-2022 Evaluation + Plan noteExtracted from: Title:ED Note Author:Dokken DO, Carrolemilee White Date :09/05/22 Acute COVID-19 (U07.1: COVID -19) Orders: albuterol, 180 mcg, 2 puff(s), Aerosol, Inhalation, q4hr PRN Shortness of breath or wheezing, STAT, Start date 09/05/22 20:56:00 EST, COVID PATIENTS ONLY albuterol, Aerosol, Misc, Once, Stop date 09/05/22 20:52:01 EST, Physician Stop, 09/05/22 20:52:01 EST ondansetron, 4 mg = 1 tab(s), Oral, q8hr, PRN Nausea/Vomiting, # 12 tab(s), Refills(s) 0, Pharmacy: [facility], 163, cm, 09/05/22 20:14:00 EST, [...] Therapy PT & PTT Rapid COVID Antigen ([facility]) Saline Lock Insert Troponin 0 Hr. XR Chest Single View Future Appointments Appointment Date:09/06/2022 07:00:00 AM Scheduled Provider: [facility] Type:Outpatient COVID Testing [facility]11-21-2022 Evaluation + Plan note Diagnostic Tests Pending * Group B Streptococcus colonization by PCR 09/04/22 [facility]11-17-2022 NoteThe following Patient Education Materials have been given to the patient: EducationMaterialFisher David Medical [id number] Hospital Discharge instructions Patient Education 08/31/2022 00:56:47 Third Trimester of , Otct-co-Ecgi Third Trimester of The third trimester is from week 28 through week 40 (months 7 through 9). This trimester is when your unborn baby (fetus) is growing very fast. At the end of the ninth month, the unborn baby is about20 inches in length. It weighs about 6 10 pounds. Follow these instructions at home: Medicines Take wskm-fnm-niuhkya and prescription medicines only as told by [...] 12/26/2010 Document Revised: 01/22/2020 Document Reviewed: 11/06/2017 [employer] Patient Education 2020 [employer] Follow Up Care 08/30/2022 21:31:53 With:Luis Carlos Jung Address[facility] [address] [address] [address]- Business (1) When:09/04/2022 Comments:Call for any problems.Call for severe abdominal painCall physician for heavy vaginal bleedingReturnfor contractions closer, longer, harderReturn for decreased movementReturn if ruptured membranes or vaginal bleeding [facility]11-08-2022 Hospital Discharge instructions Follow Up Care 08/22/2022 14:58:59 With:Dr. 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 [facility]11-04-2022 Evaluation + Plan note Diagnostic Tests Pending * Urine Culture 08/18/22 [facility]11-04-2022 Hospital Discharge instructions Follow Up Care 08/18/2022 03:47:49 With:Luis Carlos Jung Address: [address] [facility], [facility] [address] [place] [address] Business (1) When:08/21/2022 08:45:00 Comments:Appointment has already been scheduled, please keep scheduled apptCall for any problems.Call physician if symptoms worsen [facility]10-30-2022 Hospital Discharge instructions Patient Education 08/13/2022 19:55:11 [...] 10/31/2007 Document Revised: 10/21/2019 Document Reviewed: 11/09/2016 [employer] Patient Education 2020 SmartCare system. 08/13/2022 19:55:11 Monitoring Overview Monitoring Overview Monitoring [...] 09/21/2003 Document Revised: 06/25/2018 Document Reviewed: 04/30/2017 [employer] Patient Education 2020 SmartCare system. Follow Up Care 08/13/2022 17:29:42 With:Luis Carlos Jung Address: [address] [place] [address]- Business (1) When:1 to 2 days Comments:Call for any problems.Return for contractions closer, longer, harderReturn for decreased movementReturn if ruptured membranes or vaginal bleeding [facility]10-13-2022 Hospital Discharge instructions Follow Up Care 07/27/2022 01:12:54 With:Dr. Jung [phone] Address:Unknown When:09/24/2022 20:30:00 Comments:Call for any problems.Return if ruptured membranes or vaginal bleedingReturn for decreased movementcontractions every 5 minutes lasting 45 seconds for an hourCall Sunday at 7:30 PM to assure bed availability for induction [facility]10-12-2022 Hospital Discharge instructions Patient Education 07/26/2022 10:15:24 [...] Follow these instructions at home: Medicines Take cyby-evu-ljjluro and prescription medicines only as told by [...] as fried or sweet foods. ?Take an hngt-aqo-mnqcbxz or prescription medicine for constipation. If you [...] 12/28/2009 Document Revised: 05/28/2019 Document Reviewed: 11/11/2018 [employer] Patient Education 2020 SmartCare system. Follow Up Care 07/26/2022 07:56:25 With:Luis Carlos Jung Address: [facility] [address], [address] [address] Business (1) When:08/07/2022 07:45:00 [facility]10-03-2022 Evaluation + Plan noteExtracted from: Title:ED Note Author:Mathew NICHOLS, [place] Hath[place] te:07/17/22 UTI (urinary tract infection ) (N39.0: Urinary tract infection, site not specified) Orders: cephalexin, 500 mg = 1 cap(s), Oral, q12hr, X 5 day(s), # 10 cap(s), Refills(s) 0, Pharmacy: [facility], 162.5, cm, 07/17/22 9:09:00 EDT, Height/Length Dosing, 80, kg, 07/17/22 9:09:00 EDT, Weight Dosing Patient Specific Meds, Each, Misc, Once, Stop date 07/17/22 9:10:34 EDT, Physician Stop, 07/17/22 9:10:34 EDT Influenza A&B Ag Rapid COVID Antigen ([facility]) UA With Cult Reflex [facility]10-03-2022 Hospital Discharge instructions Patient Education 07/17/2022 09:55:44 [...] 01/26/2012 Document Revised: 01/23/2020 Document Reviewed: 09/04/2019 [employer] Patient Education 2019 SmartCare system. 07/17/2022 09:55:44 Urinary Tract Infection, Adult Urinary [...] Treatment for this condition includes: Antibiotic medicine. Lqky-ksc-ilkeqpy medicines to treat discomfort. Drinking enough water [...] Follow these instructions at home: Medicines Take rosv-cgz-dnvekof and prescription medicines only as told by [...] 07/11/2006 Document Revised: 09/18/2019 Document Reviewed: 04/10/2019 [employer] Patient Education 2020 SmartCare system. Follow Up Care 07/17/2022 09:04:38 With:Luis Carlos Jung Address: [address] [place] [address] [address] Business (1) When:07/20/2022 09:46:49 With:THANG MILLAN Address: [address] [place] [address] Business (1) When:07/20/2022 09:46:41 Comments:Follow-up with your primary care provider in 3 to 5 days. If symptoms worsen, do not improve, or new symptoms arise please report back to emergency department for further evaluation. [facility]09-14-2022 Evaluation + Plan note Diagnostic Tests Pending * RPR with Conf Rfx 06/28/22 [facility]09-12-2022 Hospital Discharge instructions Patient Education 06/26/2022 21:35:59 [...] 09/21/2003 Document Revised: 06/25/2018 Document Reviewed: 04/30/2017 Elsevier Patient Education 2020 [employer] Inc. 06/26/2022 21:35:59 Form - Movement Counts [...] 06/26/2022 20:41:33 With:Luis Carlos Jung Address: [address] [place] [place] [address] [facility] [place] [address]- Business (1) When:07/03/2022 07:45:00 Comments:Call for any problems.Please call if you need to rescheduleReturn for decreased movement [facility]09-05-2022 Hospital Discharge instructions Follow Up Care 06/18/2022 23:33:38 With:Luis Carlos Jung Address: [facility] [address], [facility] [address] [place] [address] Business (1) When:5 to 7 days Comments:Appointment has already been scheduledCall for any problems.Call for fever > 100.5 FCall for severe abdominal painCall physician for heavy vaginal bleedingPlease call if you need to rescheduleReturn for contractions closer, longer, harderReturn for decreased movementReturn if ruptured membranes or vaginal bleeding [facility]07-18-2022 Hospital Discharge instructions Follow Up Care 05/01/2022 17:08:54 With:Luis Carlos Fabiana Address: [address] [place] [address] [place], [facility] [address] [place] [address] Business (1) When:05/09/2022 Comments:Return if ruptured membranes or vaginal bleedingReturn for contractions closer, longer, harderCall physician if symptoms worsenCall physician for heavy vaginal bleedingCall for severe abdominal painCall for fever > 100.5 FCall for any problems. drink more fluids including gatorade, take milk of magnesia twice /day until yo u have bowel movements, benefiber daily [facility]06-19-2022 Evaluation + Plan note Diagnostic Tests Pending * Urine Culture 04/02/22 [facility]06-19-2022 Hospital Discharge instructions Patient Education 04/02/2022 10:22:48 Second Trimester of , Fuqo-uq-Yaak Second Trimester of The second trimester is [...] Follow these instructions at home: Medicines Take bwou-elp-zcyriof and prescription medicines only as told by [...] 12/26/2010 Document Revised: 01/23/2020 Document Reviewed: 11/06/2017 [employer] Patient Education 2020 SmartCare system. 04/02/2022 10:22:48 Vaginal Bleeding During , Second [...] says that this is safe. Medicines Take dbuw-ely-iodzovt and prescription medicines only as told by [...] 07/11/2006 Document Revised: 01/20/2020 Document Reviewed: 01/03/2018 [employer] Patient Education 2020 SmartCare system. Follow Up Care 04/02/2022 06:00:26 With:Dr. Jung [phone] Address:Unknown When:2 to 3 days Comments:Call for any problems.Call physician if symptoms worsen [facility]06-09-2022 Hospital Discharge instructions Patient Education 03/23/2022 20:39:21 Second Trimester of , Ipnt-st-Lgyd Second Trimester of The second trimester is [...] Follow these instructions at home: Medicines Take jgxn-hla-sgnoczz and prescription medicines only as told by [...] 12/26/2010 Document Revised: 01/23/2020 Document Reviewed: 11/06/2017 [employer] Patient Education 2020 SmartCare system. 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 [...] grounds. You are around people who have Afghan measles, fifth disease, or chickenpox. You have [...] 03/19/2009 Document Revised: 01/22/2020 Document Reviewed: 10/09/2017 [employer] Patient Education 2020 SmartCare system. 03/23/2022 20:39:21 Abdominal Pain During , Eiek-it-Rpiq Abdominal Pain During Belly (abdominal) pain is [...] keep your pee (urine) pale yellow. Take hmth-pzn-nmzelny and prescription medicines only as told by [...] 09/19/2010 Document Revised: 01/19/2020 Document Reviewed: 01/03/2018 [employer] Patient Education 2020 SmartCare system. Follow Up Care 03/23/2022 19:35:57 With:Luis Carlos Jung Address: [facility] [place] [id number] [facility] (1) When:03/27/2022 10:00:00 Comments:Call for any problems. Call [facility] first, ask to speak directly to Dr. Jung before heading to hospital unless an emergency. Call for severe abdominal pain or worsening pain.Return if vaginal bleedingor ruptured membranes.Wear belly band as much as possible, especially as your belly grows in . [facility]05-04-2022 Evaluation + Plan note Diagnostic Tests Pending * RPR with Conf Rfx 02/15/22 * HIV Screen 4th Generation wRfx 02/15/22 * Rubella Antibody IgG 02/15/22 * Hepatitis B Surface Antigen 02/15/22 * Urine Culture 02/15/22 [facility]06-18-2021 NoteHNO ID: [id number] Author: Bert Negrete, DO Service: ? Author Type: Fellow Type: Progress Notes Filed: 04/01/2021 9:15 AM Note Text: [facility] [address] [place], [place] [address] Martha Webb (Kelsey) [address] [facility] [address] PCP: Thang Millan NP Accompanied by: Mother [...] bed and continue this dose - rizatriptan (MAXALT-LAY UPS ASSEMBLER) 10 mg disintegrating tablet Take 1 tablet [...] Transformed Score (ran (more content not included)... [facility]06-10-2021 NoteHNO ID: [id number] Author: RT Oliva(R) Service: Nuclear Medicine Author Type: Sales Account Manager Type: Progress Notes Filed: 03/24/2021 9:39 AM [...] March 24, 2021 TIME: 9:38 AM PAGER/CONTACT #:[facility]05-27-2021 NoteHNO ID: [id number] Author: Martha Webb MD Service: ? Author Type: Physician Type: Progress Notes Filed: 03/10/2021 12:03 PM Note Text: This note was created using Myrlriter. Subjective Susan Bro is a 25 year [...] biliary ductal dilatation is (more content not included)...[facility]* Diagnosis Third trimester state, incidental documented in this encounter [facility] HealthcareEvaluation note* Diagnosis Third trimester state, incidental Hypothyroidism (acquired) (CMS/HCC) Unspecified hypothyroidism [facility] Narrative No data available for this section [facility] No data available for this section [facility] No data available for this section [facility] Summary Purpose Family History No Family History [...] Documents on File Type Date Recorded Patient Outside Deliverer Expl anation Advance Directives and Livin g Will 10/14/2020 10:22 AM Documents on File Type Date Recorded Patient Outside Deliverer Expl anation ACP-Advance Directive ACP-Power of Director Of Product Management Discharge Instructions * Discharge Instr - Care Coordination* Andra Schmid RN - 10/14/2020 11:43 AM EST [facility] Trust the experts at [facility] to meet your healthcare needs. When you make an appointment with [facility], it's the start of a long-lasting partnership that's committed to your health. We provide the very best prevention, wellness and illness care, and give you access to the advanced medical services and expert treatment available at [facility]. Please note that the provider listed below is accepting patients in your area. [place]: [address] [place] [address] MD Debby Lala MD Christina Spring, CNP For the most up-to-date information on a care provider in your community, use the Find a Doctor tool on [employer] [facility] * Attachments The following attachments cannot be sent through Care Everywhere. * Vertigo (Nicaraguan) * Arik Maneuver: Vertigo: Exercises (Nicaraguan) documented in this encounter* Instructions* Bakari Valente [...] be sent through Care Everywhere. * Bruises (Nicaraguan) * Contusion (Nicaraguan) documented in this encounter Assessments Diagnosis Vertigo- Primary Dizziness and giddiness Diagnosis Contusion of right knee, initial encounter Contusion of multiple sites of right shoulder and upper arm, initial encounter Additional Source Comments INFORMATION SOURCE (unrecogn ized section and content) DATE CREATED AUTHOR 04/09/2018 [facility] DATE CREATED AUTHOR AUTHOR'S ORGANIZ ATION 08/10/2020 [facility] DATE CREATED AUTHOR AUTHOR'S ORGANIZ ATION 09/07/2020 [facility] DATE CREATED AUTHOR AUTHOR'S ORGANIZ ATION 10/20/2020 [facility] DATE CREATED AUTHOR AUTHOR'S ORGANIZ ATION 03/18/2021 [facility] DATE CREATED AUTHOR AUTHOR'S ORGANIZ ATION 11/15/2021 [facility] DATE CREATED AUTHOR AUTHOR'S ORGANIZ ATION 08/25/2023 [facility] DATE CREATED AUTHOR AUTHOR'S ORGANIZ ATION 11/21/2023 [facility] dical Specialists EPIC Reason for Visit (unrecogniz ed section and content) Reason Comments Dizziness Reason Comments Knee Pain right knee pain, 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 denies hitting head or any LOC Shoulder Pain rt shoulder, fell ov er dust guzman onto her right side. Reason Comments Routine Visit Susan Griffiths PA-C - 10/14/2020 10:44 AM Amena Cantrell RN - 10/14/2020 10:32 AM EST ED Notes (unrecognized secti on and content) [facility] ED Note: NAME: Susan Bro 24 y.o. CSN: [id number] PCP: Physician No History: Chief Complaint: Dizziness [...] does have reproducible vertigo with position changes. Tndlmk-te-tohx maneuvers are intact without dysmetria. There is negative Romberg sign. There was no ataxia on ambulation. Psychiatric: Mood and Affect: Mood normal. Behavior: Behavior normal. Thought Content: Thought content normal. Laboratory & Radiological Imaging (if done): Labs Reviewed URINALYSIS - Abnormal; Notable for the following components: Result Value Clarity, Urine Cloudy (*) Specific [place] 1.028 (*) pH, Urine 8.0 (*) Protein, [...] at the following links: For Healthcare Providers: https://www.fda.gov/media/757552/download For Patients: https://www.fda.gov/media/138845/download HCG URINE, QUALITATIVE - Normal CBC AND DIFFERENTIAL Narrative: The following orders were created for panel order CBC w/ Diff. Procedure Abnormality Status --------- ------ CBC Auto Differential[[id number]] Abnormal Final result Please view results for these tests on the individual orders. HCG URINE, QUALITATIVE URINALYSIS CT Head Or Brain Without Contrast Final Result 1. No acute intracranial hemorrhage, focal edema or mass effect. Workstation ID: [id number] EKG: Normal sinus rhythm with sinus arrhythmia RATE: 74 AXIS: Normal axis INTERVALS: SD interval of 178 ms, QRS duration of [...] Antivert. She is referred to follow-up with [facility] or [place] that she does not currently have a [...] needed for dizziness . Susan Griffiths Physicians Social Media Campaign Manager [facility] Emergency Department Susan Griffiths PA-C 10/14/20 1203 Special isolation precautions are in place with signage outside this patient's room. 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 enters the [...] or prosecute any alcohol or drug abuse patient.[facility] Care Team (unrecognized sect ion and content) Personnel Name: THANG MILLAN CNP Address: [address] [place] [address] Personnel Name: THANG MILLAN CNP Address: [address] [place] [address] Personnel Name: THANG MILLAN CNP Address: [address] [place], [place] [id number] Personnel Name: THANG MILLAN CNP Address: [address] [place], [place] [id number] Personnel Name: THANG MILLAN CNP Address: [address] [place], [place] [id number] Personnel Name: THANG MILLAN CNP Address: [address] [place], [place] [phone] Personnel Name: THANG MILLAN CNP Address: [address] [place], [place] [id number] Personnel Name: THANG MILLAN CNP Address: [address] [place], [place] [id number] Personnel Name: THANG MILLAN CNP Address: Address: [address] [place], [place] [id number] Personnel Name: THANG MILLAN CNP Address: Address: [address] [place], [place] [phone] Personnel Name: THANG MILLAN CNP Address: Address: [address] [place], [place] [phone] Personnel Name: THANG MILLAN CNP Address: Address: [address] [place], [place] [phone] Personnel Name: THANG MILLAN CNP Address: Address: [address] [place], [place] [phone] Personnel Name: THANG MILLAN CNP Address: Address: [address] [place] [address]- [place] Personnel Name: BELINDA ALLISONOMAYRAO Address: Address: [address] [place] [address]- [place] Personnel Name: BELINDA ALLISON THANG Address: Address: [address] [place] [address]- [place] Personnel Name: BELINDA COOPER THANG Address: Address: [address] [place] [address]- [place] Personnel Name: MILLAN ALLISON THANG Address: Address: [address] [place] [address]- [place] Personnel Name: MILLAN ALLISON THANG Address: Address: [address] [place] [address]- [place] Personnel Name: MILLAN ALLISON THANG Address: Address: [address] [place] [address]- [place] Personnel Name: MILLAN ALLISON THANG Address: Address: [address] [place] [address]- [place] Personnel Name: BELINDA ALLISON THANG Address: Address: [address] [place] [address]- [place] Personnel Name: MILLAN ALLISON THANG Address: Address: [address] [place] [address]- [place] Personnel Name: BELINDA ALLISON THANG Address: Address: [address] [place] [address]- [place] Personnel Name: BELINDA ALLISON THANG Address: Address: [address] [place] [address]- [place] Personnel Name: BELINDA ALLISON THANG Address: Address: [address] [place] [address]- [place] Personnel Name: Luis Carlos Jung MD Address: Address: [facility] [address], [address] [address] Personnel Name: Luis Carlos Jung MD Address: Address: [facility] [address], [facility] [address] [place], [place] [address] Personnel Name: Luis Carlos Jung MD Address: Address: [address], [facility] [address] [place], [place] [address] Personnel Name: Luis Carlos Jung MD Address: Address: [facility] [address], [facility] [address] [place] [address]- Personnel Name: Luis Carlos Jung MD Address: Address: [facility] [address], [place] [id number] Personnel Name: Rashaun AMADOR DO Address: Address: [address] [place] [address]- Personnel Name: NONE, XXXX Address: Address: [facility] Personnel Name: LLC, GENERIC Personnel Name: [...] BE BASED ON THE PRIMARY CLINICAL RECORDS. [facility] [employer] provides no warranty or guarantee of the accuracy or completeness of information in this document.
== END 2023-11-27 21:21 | disposition home or self-care (01) ==
LOC: LAB 21:20
PROVIDERS: Visit Provider Obstetrics & Gynecology
DX: Z34.93 Encounter for supervision of normal pregnancy, unspecified, third trimester (principal)
CPT/HCPCS: 87081

== ENCOUNTER 2023-11-30 07:25 | Outpatient (OUT) | payer OTHER, SELFPAY ==
--- OUTSIDE RECORDS SUMMARY | 2023-11-30 07:41 | XMS_ITS | CCD ---
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 Name Role Phone NKECHI TORRES Unavailable UnavailBAKARI Bang Attending Unavailable THANG MILLAN Primary Care Unavailable No, Physician Primary Care Provider Unavailerum BRODY, PHYSICIAN Primary Care Unavailable CHOW, REGINE Admitting Unavailable GERALDO REGINE Attending Unavailable Thang Millan Primary Care Provider [phone] Unavailable Primary Care Provider UnavailTHANG Mauro Primary Care Physician Luis Carlos Jung Primary Care Physician Rashaun AMADOR Primary Care Physician NONE, XXXX Primary Care Physician Unavailab samson MAHONEY, [facility] Primary Care Physician Unavailab DO Gopi [...] Unavailable Fabiana, Luis Carlos Byrd Consulting Unavailable SpasiRoverto hope V. Attending Unavailabl e Spaflori, Roverto Maria. Admitting Unavailabl e Fabiana, Luis [...] Unavailable Fabiana, Luis Carlos Byrd Attending Unavailable Hafelipe, Astrit H Attending Unavailable Unavailable Primary Care Provider Unavailabl e DODIE MILLER Attending Unavailable PERRY, RASHAUN Attending Unavailable PERRY, RASHAUN Attending Unavailable PERRY, RASHAUN Attending Unavailable PERRY, RASHAUN Attending Unavailable PERRY, RASHAUN Attending Unavailable ANGELA, DODIE Attending Unavailable Allergies Allergy Classification Reported Allergen(s) Allergy Type Date of Onset Reaction(s) Facility (20 sources) amoxicillin; Translations: [AMOXICILLIN] Drug Allergy 7 [facility] Repository (20 sources) penicillin; Translations: [PENICILLIN] Drug Allergy 7 [facility] Repository (9 sources) Penicillins; Translations: [PENICILLINS] Propensity to adverse reactions to drug 0 [place], [place] (6 sources) Penicillin G procaine Allergy to substance [...] day(s), # 15 cap(s), Refills(s) 0, Pharmacy: [facility], 162.6, cm, 05/21/23 20:50:00 EDT, Height/Length Dosing, 75.3, kg, 05/21/23 20:50:00 EDT, Weight Dosing Start Date: 05/21/23 Stop Date: 05/26/23 Status: Ordered Start: 08-18-2022 End: 08-25-2022 take 1 capsule by mouth four times daily Keflex 500 mg Cap 500 mg = 1 cap(s), Oral, QID, X 7 day(s), # 28 cap(s), Refills(s) 0, Pharmacy: [facility] 1986, 162.5, cm, 08/18/22 4:15:00 EDT, Height/Length Dosing, 80, kg, 08/18/22 4:15:00 EDT, Weight Dosing Start Date: 08/18/22 Stop Date: 08/25/22 Status: Ordered Start: 07-17-2022 End: 07-22-2022 take 1 capsule by mouth every twelve hours Keflex 500 mg Cap 500 mg = 1 cap(s), Oral, q12hr, X 5 day(s), # 10 cap(s), Refills(s) 0, Pharmacy: [facility] 1986, 162.5, cm, 07/17/22 9:09:00 EDT, Height/Length Dosing, 80, kg, 07/17/22 9:09:00 EDT, Weight Dosing Start Date: 07/17/22 Stop Date: 07/22/22 Status: Ordered Start: 04-02-2022 End: 04-09-2022 take 1 capsule by mouth four times daily Keflex 500 mg Cap 500 mg = 1 cap(s), Oral, QID, X 7 day(s), # 28 cap(s), Refills(s) 0, Pharmacy: [facility] 1986, 160, cm, 04/02/22 6:28:00 EDT, Height/Length Dosing, 69.1, kg, 04/02/22 6:35:00 EDT, Weight Dosing Start Date: 04/02/22 Stop Date: 04/09/22 Status: Ordered cimetidine 300 mg oral tablet (3 sources) Histamine-2 Receptor Antagonist Start: 04-02-2022 cimetidine 300 mg oral tablet Refills(s) 0 Start Date: 04/02/22 Status: Ordered citalopram 20 mg oral tablet (6 sources) Serotonin Reuptake Inhibitor Start: 11-15-2023 End: 02-13-2024 take 1 tablet by mouth in the morning citalopram (CeleXA) 20 MG tablet Indications: Anxiety, generalized (CMS/HCC) Take 1 tablet (20 mg) by mouth in the morning. 30 tablet 2 11/15/2023 02/13/2024 Active Colace (3 sources) Start: 08-18-2023 Colace Refills(s) 0 Start Date: 08/18/23 Status: Ordered docusate sodium 50 mg / sennosides, correction 8.6 mg oral tablet (6 sources) senna-docusate (Colace 2-IN-1) 8.6-50 MG tablet [...] Daily, # 14 tab(s), Refills(s) 0, Pharmacy: [facility], 162.6, cm, 05/21/23 20:50:00 EDT, Height/Length Dosing, 75.3, kg, 05/21/23 20:50:00 EDT, Weight Dosing Start Date: 05/21/23 Status: Ordered ibuprofen 600 mg oral tablet (11 sources) Nonsteroidal Anti-inflammatory Drug Start: 09-27-2022 take 1 tablet by mouth every six hours ibuprofen 600 mg Tab 600 mg = 1 tab(s), Oral, q6hr, # 15 tab(s), Refills(s) 0, Pharmacy: [facility] 1985, 162.5, cm, 09/24/22 21:51:00 [...] dizziness, # 15 tab(s), Refills(s) 0, Pharmacy: [facility] [address], 163, cm, 11/30/21 [...] Nausea/Vomiting, # 12 tab(s), Refills(s) 0, Pharmacy: [facility] 1986, 163, cm, 09/05/22 20:14:00 [...] day(s), # 6 tab(s), Refills(s) 0, Pharmacy: [facility], 163, cm, 06/28/23 10:39:00 EDT, Height/Length Dosing, 74.8, kg, 06/28/23 10:39:00 EDT, Weight Dosing Start Date: 06/28/23 Stop Date: 06/30/23 Status: Ordered Multivitamins (20 sources) Start: 03-03-2022 take 1 tablet by mouth once daily Multivitamins 1 tab(s), Oral, Daily, Refill(s) 0 Start Date: 03/03/22 Status: Ordered MV-Min-Fe Fum-FA-DHA ( 1 PO) (6 sources) MV-Min- Fe Fum-FA-DHA ( 1 PO) [...] q8hr, # 12 tab(s), Refills(s) 0, Pharmacy: [facility], 162.6, cm, 05/21/23 20:50:00 [...] sources) Onset: 03-23-2022 Resolved: 09-25-2022 03-23-2022 Unclassified (6 sources) OB Reminders Onset: 07-17-2023 07-17-2023 Urinary [...] Test Name Value Interpretation Reference Range Facility ALL THYROID STIM HORMONEon 0 11-27-2023 TSH Qn 2.029 m[IU]/L [facility] Urinalysis macro (dipstick) panel (U)on 11-27-2023 Bilirubin, UA Negative Negative - 4(70) +++ mg/dL [facility] Blood, UA Negative Negative - 50 Tod/mcL [facility] Clarity, UA Clear [facility] Color, UA Yellow [facility] Glucose, UA Negative Negative - 2000(110) ++++ mg/dL [facility] Interpretation and review of laboratory results Abnormal [facility] Ketones, UA Positive Negative - 160(16) ++++ mg/dL [facility] Leukocytes, UA Positive Negative - 500+++ Rosemarie/mcL [facility] Nitrite, UA Negative Negative - Positive [facility] pH, UA 6.5 5 - 9 [facility] Protein, UA Trace Negative - 1999(20) ++++ mg/dL [facility] Spec Grav, UA 1.025 1 - 1.03 [facility] Urobilinogen, UA 1.0 0.2 - 12 mg/dL [facility] Urinalysis macro (dipstick) panel (U)on 11-20-2023 Bilirubin, UA Negative Negative - 4(70) +++ mg/dL [facility] Blood, UA Negative Negative - 50 Tod/mcL [facility] Clarity, UA Clear [facility] Color, UA Yellow [facility] Glucose, UA Negative Negative - 1999(110) ++++ mg/dL [facility] Interpretation and review of laboratory results Normal [facility] Ketones, UA Negative Negative - 160(16) ++++ mg/dL [facility] Leukocytes, UA Negative Negative - 500+++ Rosemarie/mcL [facility] Nitrite, UA Negative Negative - Positive [facility] pH, UA 7.0 5 - 9 [facility] Protein, UA Negative Negative - 1999(20) ++++ mg/dL [facility] Spec Grav, UA 1.025 1 - 1.03 [facility] Urobilinogen, UA 1.0 0.2 - 12 mg/dL [facility] URINALYSISOrdered By: An Mccarty on 11-04-2023 Bacteria LM Ql (Urine sed) Trace /HPF Normal Trace/HPF [facility] UA Auto SS Bilirubin Ql (U) Negative (11/04/23 8:05 AM) Normal Negative [facility] UA Auto SS Clarity (U) SL CLOUDY Invalid Interpretation Code [facility] UA Auto SS Color (U) Yellow (11/04/23 8:05 AM) Normal Yellow [facility] UA Auto SS Epithelial cells.squamous LM.HPF (Urine sed) [#/Area] 5-8 /HPF Normal 0-2/HPF [facility] UA Auto SS Glucose Test strip (U) [Mass/Vol] Negative (11/04/23 8:05 AM) Normal Negative [facility] UA Auto SS Hemoglobin Ql (U) Negative (11/04/23 8:05 AM) Normal Negative [facility] UA Auto SS Ketones (U) [Mass/Vol] Negative (11/04/23 8:05 AM) Normal Negative [facility] UA Auto SS Valentine.plasma/Valentine .RBC (Bld) [Mass ratio] 0-3 /HPF Normal 0-3/HPF FT UA Auto SS Mucus Ql (Urine sed) Trace (11/04/23 8:05 AM) Normal FT UA Auto SS Nitrite [...] Desc Clean Catch (11/04/23 8:05 AM) Normal [facility] UA Auto SS Urobilinogen Qn (U) 0.8604174 {Rola'U}/dL Normal 0.0 - 1.0 EU/dL FT UA Auto SS WBC Auto Ql (U) 1+ *ABN* (11/04/23 8:05 AM) Invalid Interpretation Code Negative [facility] UA Auto SS WBC LM.HPF (Urine sed) [#/Area] 6-15 /HPF Invalid Interpretation Code 0-5/HPF [facility] UA Auto SS T3 Totalon 08-24-2023 T3 [Mass/Vol] 146 ng/dL Invalid Interpretation Code [id number] [facility] Comment on above: Result Comment: Perf ormed at: [facility] [address] [id number] PhD Caroline East Performed By: #### 2 835930, 56984290, 1778361, 38087681, 9566362, 7268350, 55530528 ####[facility] [address] [place] [address] Auto Diffon 08-23-2023 Basophils/100 WBC (Bld) 0.9 % Normal 0.0-2.0 [facility] Comment on above: Order Comment: Order Added by Discern Expert. Performed By: #### 2 907543, 88256888, 3276454, 72832686, 8931457, 1233525, 87852904 ####[address] [place] [address] Basophils/Leukocytes Auto (Bld) [Pure # fraction] 0.1 E9/L Normal 0.0-0.2 [facility] Comment on above: Order Comment: Order Added by Discern Expert. Performed By: #### 2 890565, 13367950, 7475862, 54485680, 1089995, 9542376, 55127339 ####[address] [address] Eosinophils/100 WBC (Bld) 1.3 % Normal 0.0-8.0 [facility] Comment on above: Order Comment: Order Added by Discern Expert. Performed By: #### 2 964694, 43794142, 7646267, 28974491, 1578224, 1619714, 74343312 ####[address] [address] Eosinophils/Leukocytes Auto (Bld) [Pure # fraction] 0.1 E9/L Normal 0.0-0.5 [facility] Comment on above: Order Comment: Order Added by Discern Expert. Performed By: #### 2 471343, 88196201, 4561169, 56256747, 6910758, 8575418, 84929914 ####[address] [address] Lymphocytes/100 WBC (Bld) 17.7 % Normal 14.0-50.0 [facility] Comment on above: Order Comment: Order Added by Discern Expert. Performed By: #### 2 783021, 47263395, 1227212, 51090934, 7818111, 1775299, 67440316 ####[address] [address] Lymphocytes/Leukocytes Auto (Bld) [Pure # fraction] 1.4 E9/L Normal 1.0-4.0 [facility] Comment on above: Order Comment: Order Added by Discern Expert. Performed By: #### 2 872364, 61934830, 6572466, 77493013, 5651654, 7739989, 38731502 ####[address] [place] [address] Monocytes/100 WBC (Bld) 5.1 % Normal 4.0-14.0 [facility] Comment on above: Order Comment: Order Added by Discern Expert. Performed By: #### 2 519084, 40762479, 9641265, 29107067, 7288414, 1373240, 85533123 ####[address] [place] [address] Monocytes/Leukocytes Auto (Bld) [Pure # fraction] 0.4 E9/L Normal 0.2-1.0 [facility] Comment on above: Order Comment: Order Added by Discern Expert. Performed By: #### 2 951053, 43493613, 0696027, 38441259, 8263877, 4748521, 05190391 ####[address] [address] Neutrophils/100 WBC (Bld) 75.0 % Normal 36.0-75.0 [facility] Comment on above: Order Comment: Order Added by Discern Expert. Performed By: #### 2 114031, 95807005, 0506300, 89217905, 2153365, 8481667, 39247056 ####[address] [place] [address] Neutrophils/Leukocytes Auto (Bld) [Pure # fraction] 5.8 E9/L Normal 2.0-7.5 [facility] Comment on above: Order Comment: Order Added by Discern Expert. Performed By: #### 2 053508, 16065755, 3067784, 92058838, 0169793, 0537766, 02542545 ####[address] [place] [address] CBC w/ Auto Diffon 3 Erythrocyte distribution width (RBC) [Ratio] 14.5 % High 10.9-14.2 [facility] Comment on above: Performed By: #### 2 867566, 71443685, 1756409, 09648441, 5102954, 2680381, 21507340 ####[address] [place] [address] Hematocrit (Bld) [Volume fraction] 36.4 % Normal 34.0-46.0 [facility] Comment on above: Performed By: #### 2 454963, 83141627, 7504811, 98347732, 9349266, 5577964, 43742097 ####[address] [address] Hemoglobin (Bld) [Mass/Vol] 12.1 g/dL Normal 12.0-16.0 [facility] Comment on above: Performed By: #### 2 928452, 18767813, 6509682, 22429602, 3300935, 1363669, 05521023 ####[id number] MCH (RBC) [Entitic mass] 30.2 pg Normal 27.0-34.0 [facility] Comment on above: Performed By: #### 2 913131, 16443114, 2742786, 43833096, 9229371, 1253199, 21837536 ####[address] [address] MCHC (RBC) [Mass/Vol] 33.3 g/dL Normal 31.4-36.0 [facility] Comment on above: Performed By: #### 2 924472, 86121635, 7606252, 56676005, 5183361, 2517446, 25884689 ####[address] [address] MCV (RBC) [Entitic vol] 90.8 fL Normal 80.0-100.0 [facility] Comment on above: Performed By: #### 2 506586, 35778530, 2297930, 16476122, 7810460, 0897031, 29679058 ####[address] [place] [address] Platelet mean volume (Bld) [Entitic vol] 9.7 fL Normal 6.4-10.8 [facility] Comment on above: Performed By: #### 2 442947, 30602610, 4474820, 24047487, 5992658, 7285666, 58232739 ####[address] [place] [address] Platelets (Bld) [#/Vol] 270.0 E9/L Normal 150.0-500.0 [facility] Comment on above: Performed By: #### 2 462115, 15719753, 8292675, 03924624, 3676196, 2207477, 93070341 ####[address] [place] [address] RBC (Bld) [#/Vol] 4.0 E12/L Low 4.3-5.9 [facility] Comment on above: Performed By: #### 2 375226, 83690765, 8105901, 96379606, 1047084, 8877920, 03015507 ####[address] [place] [address] WBC corrected for nucl RBC Auto (Bld) [#/Vol] 7.7 E9/L Normal 4.0-11.0 [facility] Comment on above: Performed By: #### 2 804890, 18330904, 8331476, 21213702, 4359904, 7276346, 19234335 ####[address] [address] CHEMISTRYOrdered By: SYSTEM SYSTEM on 08-23-2023 Albumin [...] 125 mL/min/1.73 m2 Normal >=59mL/min/ 1.[address] [facility] Chem S Comment [...] 08-23-2023 Albumin [Mass/Vol] 2.8 g/dL Low 3.3-5.0 [facility] Comment on above: Performed By: #### 2 158066, 52208169, 0573527, 12651454, 9818523, 8008303, 54472311 ####[facility] [address] [place] [address] Albumin/Globulin (S) [Mass conc ratio] 0.7 Low 1.1-2.2 [facility] Comment on above: Performed By: #### 2 619430, 33891510, 8812772, 87132452, 8576402, 2917173, 66489295 ####[facility] [address] [place] [address] ALP [Catalytic activity/Vol] 49 Int._Unit/L Normal 21-98 [facility] Comment on above: Performed By: #### 2 174532, 16087502, 2165996, 81280109, 8113765, 5897879, 12308811 ####[facility] [address] [place] [address] ALT No additional P-5'-P [Catalytic activity/Vol] 15 Int._Unit/L Normal 6-46 [facility] Comment on above: Performed By: #### 2 078481, 06717911, 5793282, 36253291, 2393781, 5717032, 55757275 ####[facility] [address] [place] [address] Anion gap [Moles/Vol] 12 mmol/L Normal 6-16 [facility] Comment on above: Performed By: #### 2 001394, 92954544, 8837847, 00342019, 0478416, 8238762, 22706379 ####[facility] [address] [place] [address] AST [Catalytic activity/Vol] 17 Int._Unit/L Normal 5-43 [facility] Comment on above: Performed By: #### 2 020309, 89596343, 9363249, 83922403, 1391815, 8683186, 78005982 ####[facility] [address] [place] [address] Bilirubin [Mass/Vol] 0.5 mg/dL Normal 0.0-1.1 [facility] Comment on above: Performed By: #### 2 762167, 97158347, 7916270, 56456565, 3794471, 1547271, 55133480 ####[facility] [address] [place] [address] Calcium [Mass/Vol] 8.8 mg/dL Low 8.9-11.1 [facility] Comment on above: Performed By: #### 2 652510, 24617442, 9004664, 65885280, 3842248, 2453919, 26860458 ####[facility] [address] [place] [address] Chloride [Moles/Vol] 108 mmol/L Normal 101-111 [facility] Comment on above: Performed By: #### 2 564522, 62962061, 4021121, 53228657, 3595000, 5745627, 31013547 ####[facility] [address] [place] [address] CO2 [Moles/Vol] 22 mmol/L Normal 21-31 [facility] Comment on above: Performed By: #### 2 021243, 04822485, 8259256, 22429991, 7952179, 1999561, 74796217 ####[facility] [address] [place] [address] Creatinine [Mass/Vol] 0.6 mg/dL Normal 0.5-1.3 [facility] Comment on above: Performed By: #### 2 233918, 50614240, 2097220, 24300263, 3412487, 7420926, 78343171 ####[facility] [address] [place] [address] Globulin (S) [Mass/Vol] 3.8 g/dL Normal 1.4-4.0 [facility] Comment on above: Performed By: #### 2 072737, 24335077, 0393579, 26602659, 0107924, 5601633, 92462210 ####[facility] [address] [place] [address] Glucose [Mass/Vol] 88 mg/dL Normal 55-199 [facility] Comment on above: Result Comment: If t his glucose result represents a fasting glucose, interpretation should refer to the following reference range: 55-99 mg/dL Performed By: #### 2 634520, 58093231, 0529445, 17238414, 5060235, 1788043, 75109263 ####[facility] [address] [place] [address] Potassium [Moles/Vol] 3.5 mmol/L Normal 3.5-5.3 [facility] Comment on above: Performed By: #### 2 205900, 70706377, 8411672, 63098479, 0791764, 2582826, 28888285 ####[facility] [address] [place] [address] Protein [Mass/Vol] 6.6 g/dL Normal 6.0-7.8 [facility] Comment on above: Performed By: #### 2 887980, 04085784, 0859012, 51073674, 7888217, 6194645, 63275714 ####[facility] [address] [place] [address] Sodium [Moles/Vol] 138 mmol/L Normal 135-145 [facility] Comment on above: Performed By: #### 2 072333, 95614027, 4502802, 56968241, 9706568, 8562823, 67993490 ####[facility] [address] [place] [address] Urea nitrogen [Mass/Vol] 7 mg/dL Normal 5-21 [facility] Comment on above: Performed By: #### 2 717197, 15005906, 8120031, 62296845, 7315708, 6659125, 85011925 ####[facility] [address] [place] [address] Urea nitrogen/Creatinine [Mass ratio] 12 No Units Normal 10-20 [facility] Comment on above: Performed By: #### 2 950975, 44652262, 3919723, 41783717, 0177350, 5983481, 02919391 ####[facility] [address] [place] [address] HEMATOLOGYOrdered By: SYSTEM SYSTEM on 08-23-2023 Basophils/100 [...] 08-23-2023 Cholesterol [Mass/Vol] 238 mg/dL High 120-200 [facility] Comment on above: Performed By: #### 2 480160, 09723938, 2100239, 68490814, 4813062, 3522543, 76239207 ####[facility] [address] [place] [address] Cholesterol in HDL [Mass/Vol] 64 mg/dL Invalid Interpretation Code [facility] Comment on above: Result Comment: HDL > or equal to 60 mg/dL: Low cardiovascular riskHDL < 40 mg/dL : High cardiovascular risk Performed By: #### 2 387921, 21637020, 1922801, 04225903, 8870012, 2321770, 60381280 ####[facility] [address] [place] [address] Cholesterol in LDL [Mass/Vol] 146 mg/dL High <=129 [facility] Comment on above: Performed By: #### 2 067256, 08715647, 3681191, 89576356, 9032808, 4604608, 92669147 ####[facility] [address] [place] [address] Cholesterol in VLDL [Mass/Vol] 33 mg/dL Normal 7-40 [facility] Comment on above: Performed By: #### 2 266720, 28951249, 9867279, 90354894, 7226386, 4506063, 74678418 ####[facility] [address] [place] [address] Triglyceride [Mass/Vol] 164 mg/dL High <=149 [facility] Comment on above: Performed By: #### 2 940734, 49512698, 4533958, 91737358, 7505494, 5204574, 51228406 ####[facility] [address] [place] [address] Physician Orderon 08-23-2023 Physician Order [id number]#1.00TIFF Normal [facility] T4 & TSHon 08-23-2023 T4 [Mass/Vol] 11.8 microgram/dL High 4.6-9.1 [facility] Comment on above: Performed By: #### 2 779816, 93411244, 2356194, 81157715, 7051142, 2287266, 72405331 ####[facility] [address] [place] [address] TSH Qn 3.61 m[IU]/L Normal 0.34-5.60 [facility] Comment on above: Performed By: #### 2 390695, 07946027, 2383585, 21754939, 5499700, 9469120, 11002884 ####[facility] [address] [place] [address] eGFRon 08-23-2023 GFR/1.73 sq M.predicted among non-blacks MDRD (S/P/Bld) [Vol rate/Area] 125 mL/min/1.73 m2 Normal >=59 [facility] Comment on above: Order Comment: Order added by Discern Expert. Result Comment: Real Estate Financial Analyst lucy kidney disease could be indicated at eGFR's of less than 60 mL/min/1.73m2. Kidney failure is indicated at less than 15 mL/min/1.73m2. Performed By: #### 2 816776, 99651498, 3499132, 82464799, 9477350, 7335226, 79517835 ####[facility] [address] [place] [address] Nursing Assessmenton 023 Nursing Assessment [id number]#1.00TIFF Normal [facility] Consent for Treatmenton Consent for Treatment [id number]#1.00TIFF Normal [facility] Discharge Instructionson Discharge Instructions [id number]#1.00TIFF Normal [facility] Inpatient Clinical Summaryon 08-18-2023 Inpatient Clinical Summary Normal [facility] Inpatient Patient Summaryon 08-18-2023 Inpatient Patient Summary Normal [facility] Insurance Correspondenceon 1 10-18-2022 Insurance Correspondence [id number]#1.00TIFF Normal [facility] Vaccinationson 08-18-2023 Vaccinations [id number]#1.00TIFF Normal [facility] C Urineon 07-27-2023 Bacteria identified Cx Nom (U) Normal [facility] Comment on above: Performed By: #### 2 382827, 95634487 ####[facility] [address] [place] [address] ABO/Rhon 07-25-2023 ABO/Rh Positive Invalid Interpretation Code [facility] Comment on above: Performed By: #### 2 483998 ####[facility] [address] [place] [address] Auto Diffon 07-25-2023 Basophils/100 WBC (Bld) 1.1 % Normal 0.0-2.0 [facility] Comment on above: Order Comment: Order Added by Discern Expert. Performed By: #### 1 3012105, 2051205, 3526204, 2828349, 5496661, 1211016 ####[facility] [address] [place] [address] Basophils/Leukocytes Auto (Bld) [Pure # fraction] 0.1 E9/L Normal 0.0-0.2 [facility] Comment on above: Order Comment: Order Added by Discern Expert. Performed By: #### 1 0219586, 1531404, 9199147, 2847939, 1378009, 8484871 ####[facility] [address] [place] [address] Eosinophils/100 WBC (Bld) 1.2 % Normal 0.0-8.0 [facility] [facility] Comment on above: Order Comment: Order Added by Discern Expert. Performed By: #### 1 1713028, 8806357, 2974445, 4580113, 1192915, 1374555 ####[address] [place] [address] Eosinophils/Leukocytes Auto (Bld) [Pure # fraction] 0.1 E9/L Normal 0.0-0.5 [facility] Comment on above: Order Comment: Order Added by Discern Expert. Performed By: #### 1 5306590, 1681372, 0072801, 5865047, 4729444, 2242594 ####[address] [place] [address] Lymphocytes/100 WBC (Bld) 23.7 % Normal 14.0-50.0 [facility] Comment on above: Order Comment: Order Added by Discern Expert. Performed By: #### 1 9729981, 5709130, 3882548, 4992977, 1646852, 0823497 ####[address] [address] Lymphocytes/Leukocytes Auto (Bld) [Pure # fraction] 1.4 E9/L Normal 1.0-4.0 [facility] Comment on above: Order Comment: Order Added by Discern Expert. Performed By: #### 1 5045494, 5415334, 5236611, 4820225, 0153425, 8780726 ####[address] [address] Monocytes/100 WBC (Bld) 6.7 % Normal 4.0-14.0 [facility] Comment on above: Order Comment: Order Added by Discern Expert. Performed By: #### 1 1031146, 7202920, 2684724, 6879115, 1282330, 7616734 ####[address] [place] [address] Monocytes/Leukocytes Auto (Bld) [Pure # fraction] 0.4 E9/L Normal 0.2-1.0 [facility] Comment on above: Order Comment: Order Added by Discern Expert. Performed By: #### 1 6992371, 1399914, 5349148, 1553930, 3387614, 0134817 ####[address] [address] Neutrophils/100 WBC (Bld) 67.3 % Normal 36.0-75.0 [facility] Comment on above: Order Comment: Order Added by Discern Expert. Performed By: #### 1 5233729, 3530665, 5264024, 9297431, 6825693, 2529344 ####[facility] [address] [place] [address] Neutrophils/Leukocytes Auto (Bld) [Pure # fraction] 4.0 E9/L Normal 2.0-7.5 [facility] Comment on above: Order Comment: Order Added by Discern Expert. Performed By: #### 1 5001055, 1397550, 2858026, 1984804, 7093148, 9688032 ####[facility] [address] [place] [address] BLOOD BANKOrdered By: An Lassiter on 07-25-2023 ABO/Rh Interp Positive Invalid Interpretation Code [facility] BB Subsection BMPon 07-25-2023 Creatinine [Mass/Vol] 0.6 mg/dL Normal 0.5-1.3 [facility] Comment on above: Performed By: #### 1 7293739, 1246271, 1361488, 3583325, 5196863, 4883015 ####[facility] [address] [place] [address] Urea nitrogen [Mass/Vol] 6 mg/dL Normal 5-21 [facility] Comment on above: Performed By: #### 1 3481371, 7571188, 5325873, 6924484, 3641934, 5493862 ####[facility] [address] [place] [address] Urea nitrogen/Creatinine [Mass ratio] 10 No Units Normal 10-20 [facility] Comment on above: Performed By: #### 1 6239122, 5097193, 3914167, 9575349, 1538095, 8691353 ####[facility] [address] [place] [address] Anion gap [Moles/Vol] 2 mmol/L Low 6-16 [facility] Comment on above: Performed By: #### 1 8117068, 5636164, 2235417, 7156524, 8691413, 4802083 ####[facility] [address] [place] [address] Calcium [Mass/Vol] 8.6 mg/dL Low 8.9-11.1 [facility] Comment on above: Performed By: #### 1 8916945, 7267081, 8162562, 9085452, 6191808, 0850808 ####[facility] [address] [place] [address] Chloride [Moles/Vol] 107 mmol/L Normal 101-111 [facility] Comment on above: Performed By: #### 1 9978907, 2706847, 6651137, 6183032, 3127759, 5130149 ####[facility] [address] [place] [address] CO2 [Moles/Vol] 27 mmol/L Normal 21-31 [facility] Comment on above: Performed By: #### 1 2089592, 9191048, 2121942, 6455769, 7763019, 0961587 ####[facility] [address] [place] [address] Glucose [Mass/Vol] 73 mg/dL Normal 55-199 [facility] Comment on above: Result Comment: If t his glucose result represents a fasting glucose, interpretation should refer to the following reference range: 55-99 mg/dL Performed By: #### 1 7198406, 1548533, 0967389, 8076768, 9835813, 2567618 ####[facility] [address] [place] [address] Potassium [Moles/Vol] 3.9 mmol/L Normal 3.5-5.3 [facility] Comment on above: Performed By: #### 1 2615139, 3681788, 5850566, 2182087, 7931046, 8966853 ####[facility] [address] [place] [address] Sodium [Moles/Vol] 132 mmol/L Low 135-145 [facility] Comment on above: Performed By: #### 1 7723686, 0594129, 6257127, 1249825, 2134264, 3088377 ####[facility] [address] [place] [address] BhCG Quanton 07-25-2023 [place] [address] m[IU]/mL High 1-3 [facility] Comment on above: Result Comment: GEST ATIONAL AGE HCG RANGE (mIU/mL) NON- <1-3 0.2-1 WEEKS 5-50 1-2 WEEKS 50-500 2-3 WEEKS 100-5,000 3-4 WEEKS 500-10,000 4-5 WEEKS 1,000-50,000 5-6 WEEKS 10,000-100,000 6-8 WEEKS 15,000-200,000 8-12 WEEKS 10,000-100,000 Performed By: #### 2 680552 ####[facility] [address] [place] [address] CBC w/ Auto Diffon Erythrocyte distribution width (RBC) [Ratio] 14.0 % Normal 10.9-14.2 [facility] Comment on above: Performed By: #### 1 8809836, 1595266, 3004056, 9586603, 9000316, 2984090 ####[facility] [address] [place] [address] Hematocrit (Bld) [Volume fraction] 37.1 % Normal 34.0-46.0 [facility] Comment on above: Performed By: #### 1 7444874, 4496017, 7640723, 4008185, 0223289, 3760769 ####[facility] [address] [place] [address] Hemoglobin (Bld) [Mass/Vol] 12.5 g/dL Normal 12.0-16.0 [facility] Comment on above: Performed By: #### 1 3171866, 6643774, 9104971, 6256491, 8056314, 6020974 ####[facility] [address] [place] [address] MCH (RBC) [Entitic mass] 29.9 pg Normal 27.0-34.0 [facility] Comment on above: Performed By: #### 1 4361668, 3263050, 4476046, 5337914, 2137230, 1096529 ####[address] [place] [address] MCHC (RBC) [Mass/Vol] 33.8 g/dL Normal 31.4-36.0 [facility] Comment on above: Performed By: #### 1 6900723, 8929064, 5226826, 8303447, 1043458, 6368702 ####[address] [place] [address] MCV (RBC) [Entitic vol] 88.4 fL Normal 80.0-100.0 [facility] Comment on above: Performed By: #### 1 5262236, 4368706, 3815168, 3862493, 2210486, 1285761 ####[address] Platelet mean volume (Bld) [Entitic vol] 7.9 fL Normal 6.4-10.8 [facility] Comment on above: Performed By: #### 1 6952659, 7261075, 1611108, 0767114, 3455318, 3470145 ####[address] [address] Platelets (Bld) [#/Vol] 261.0 E9/L Normal 150.0-500.0 [facility] Comment on above: Performed By: #### 1 0590595, 7276109, 3047056, 2380258, 7095117, 1820736 ####[address] [address] RBC (Bld) [#/Vol] 4.2 E12/L Low 4.3-5.9 [facility] Comment on above: Performed By: #### 1 9481353, 4490329, 2095215, 8973171, 8474402, 7689010 ####[address] [place] [address] WBC corrected for nucl RBC Auto (Bld) [#/Vol] 5.9 E9/L Normal 4.0-11.0 [facility] Comment on above: Performed By: #### 1 3927868, 7002784, 8859362, 3748917, 0584338, 3941671 ####[facility] [address] [place] [address] CHEMISTRYOrdered By: SYSTEM SYSTEM on 07-25-2023 Albumin [...] 125 mL/min/1.73 m2 Normal >=59mL/min/ 1.[address] [facility] Chem S Comment [...] reference range: 55-99 mg/[place] [address] m[IU]/mL High 1 - 3 mIU/mL [facility] [...] ratio] 10 mg/mg Normal 10 - 20 [facility] Remisol Consent for Treatmenton 07-15 Consent for Treatment [id number] Normal [facility] Discharge Instructionson Discharge Instructions [id number] Normal [facility] ED Clinical Summaryon 2022 [facility]20 ED Note-Physician Normal [facility] Comment on above: Result Comment: Elec tronically Signed By: Jorge Velarde PA-C\.br\Date and Time Signed: 07/25/23 10:02 EDT\.br\Electronically Co-Signed By: Kristian Guillermo DO\.br\Date and Time Co-Signed: 07/25/23 20:25 EDT ED Patient Education Noteon 07-25-2023 ED Patient Education Note Normal [facility] ED Patient Summaryon ED Patient Summary Normal [facility] HEMATOLOGYOrdered By: SYSTEM SYSTEM on 07-25-2023 [...] 4.0 E9/L Normal 2.0 - 7.5 E9/L [facility] HemeAutoSS HEMATOLOGYOrdered By: Luis Miguel Posadas on [...] 5.9 E9/L Normal 4.0 - 11.0 E9/L [facility] HemeAutoSS Hep Func Panelon 07-25-2023 Bilirubin.indirect [Mass or moles/Vol] UTC Abnormal 0.1-0.9 [facility] Comment on above: Result Comment: Resu lt verified by Discern Rule. Performed result UTC (Unable to Calculate) was sent as an Alpha code due the inability to calculate a valid numeric value. Performed By: #### 1 7250498, 3762150, 5627343, 6426630, 1082441, 2488682 ####[facility] [address] [place] [address] Albumin [Mass/Vol] 3.1 g/dL Low 3.3-5.0 [facility] Comment on above: Performed By: #### 1 6337773, 3948501, 2141379, 4558491, 5441169, 7790857 ####[facility] [address] [place] [address] Albumin/Globulin (S) [Mass conc ratio] 0.9 Low 1.1-2.2 [facility] Comment on above: Performed By: #### 1 3090590, 3050378, 5548164, 3653879, 2575202, 7737842 ####[facility] [address] [place] [address] ALP [Catalytic activity/Vol] 35 Int._Unit/L Normal 21-98 [facility] Comment on above: Performed By: #### 1 5380610, 4856539, 9490863, 6817880, 3990190, 7983491 ####[address] [place] [address] ALT No additional P-5'-P [Catalytic activity/Vol] 10 Int._Unit/L Normal 6-46 [facility] Comment on above: Performed By: #### 1 6663858, 6876279, 9641017, 1932752, 8222506, 9659288 ####[address] [place] [address] AST [Catalytic activity/Vol] 18 Int._Unit/L Normal 5-43 [facility] Comment on above: Performed By: #### 1 0190836, 2804633, 1080048, 9278563, 8976679, 7284135 ####[facility] [address] [place] [address] Bilirubin [Mass/Vol] 0.4 mg/dL Normal 0.0-1.1 [facility] Comment on above: Performed By: #### 1 6865100, 6545923, 1406910, 0212842, 0230099, 3378153 ####[facility] [address] [place] [address] Globulin (S) [Mass/Vol] 3.6 g/dL Normal 1.4-4.0 [facility] Comment on above: Performed By: #### 1 0488593, 9809351, 2125758, 6938491, 6469040, 6651560 ####[facility] [address] [place] [address] Protein [Mass/Vol] 6.7 g/dL Normal 6.0-7.8 [facility] Comment on above: Performed By: #### 1 4398714, 6246308, 2452921, 5615576, 2070073, 1758399 ####[facility] [address] [place] [address] Bilirubin.direct [Mass/Vol] mg/dL Normal 0.1-0.4 [facility] Comment on above: Performed By: #### 1 0617231, 6058895, 5547154, 8956843, 8228987, 2421049 ####[address] [address] Lipase Levelon 07-25-2023 Lipase [Catalytic activity/Vol] 28 U/L Normal 13-58 [facility] Comment on above: Performed By: #### 1 5736401, 2335360, 2483462, 1343622, 2818219, 9892017 ####[facility] [address] [place] [address] UA With Cult Reflexon 2022 Bacteria LM Ql (Urine sed) TRACE Normal Trace [facility] Comment on above: Performed By: #### 2 774960, 27971043 ####[facility] [address] [place] [address] Bilirubin Ql (U) Negative Normal Negative [facility] Comment on above: Performed By: #### 2 567901, 29855591 ####[address] [address] Clarity (U) SL CLOUDY Abnormal Clear [facility] Comment on above: Performed By: #### 2 827168, 17164613 ####[address] [address] Color (U) YELLOW Normal Yellow [facility] Comment on above: Performed By: #### 2 971418, 68587356 ####[facility] [address] [place] [address] Epithelial cells.squamous LM.HPF (Urine sed) [#/Area] 0-2 Normal 0-2 [facility] Comment on above: Performed By: #### 2 846148, 27592315 ####[facility] [address] [place] [address] Glucose Test strip (U) [Mass/Vol] Negative Normal Negative [facility] Comment on above: Performed By: #### 2 181703, 78778972 ####[facility] [address] [place] [address] Hemoglobin Ql (U) Negative Normal Negative [facility] Comment on above: Performed By: #### 2 733348, 87627841 ####[facility] [address] [place] [address] Ketones (U) [Mass/Vol] Negative Normal Negative [facility] Comment on above: Performed By: #### 2 819134, 97383864 ####[facility] [address] [place] [address] Valentine.plasma/Valentine .RBC (Bld) [Mass ratio] 0-3 Normal 0-3 [facility] Comment on above: Performed By: #### 2 995744, 57835384 ####[facility] [address] [place] [address] Nitrite Ql (U) Negative Normal Negative [facility] Comment on above: Performed By: #### 2 254438, 77748666 ####[facility] [address] [place] [address] pH (U) 7.5 [pH] Invalid Interpretation Code 5.0-9.0 [facility] Comment on above: Performed By: #### 2 599199, 43501531 ####[facility] [address] [place] [address] Protein (U) [Mass/Vol] Negative Normal Negative [facility] Comment on above: Performed By: #### 2 740647, 17652645 ####[facility] [address] [place] [address] Specific gravity (U) [Rel density] 1.010 Invalid Interpretation Code 1.005-1.030 [facility] Comment on above: Performed By: #### 2 149026, 49643152 ####[place] [address] Type of Urine collection method Clean Catch Normal [facility] Comment on above: Performed By: #### 2 198388, 41334419 ####[place] [address] Urobilinogen Qn (U) 1.0 {Rola'U}/dL Normal 0.0-1.0 [facility] Comment on above: Performed By: #### 2 315514, 01992881 ####[place] [address] WBC Auto Ql (U) 2+ Abnormal Negative [facility] Comment on above: Performed By: #### 2 871108, 95363456 ####[address] [place] [address] WBC LM.HPF (Urine sed) [#/Area] 0-5 Normal 0-5 [facility] Comment on above: Performed By: #### 2 217592, 80000850 ####[place] [address] URINALYSISOrdered By: Emy Aiken on 07-25-2023 Bacteria [...] AM) Normal Negative [facility] UA Auto SS Valentine.plasma/Valentine .RBC (Bld) [Mass ratio] 0-3 /HPF Normal [...] FT UA Auto SS Urobilinogen Qn (U) 1.1652673 {Rola'U}/dL Normal 0.0 - 1.0 EU/dL FT UA Auto SS WBC Auto Ql (U) 2+ *ABN* (07/25/23 8:33 AM) Invalid Interpretation Code Negative [facility] UA Auto SS WBC LM.HPF (Urine sed) [#/Area] 0-5 /HPF Normal 0-5/HPF FT UA Auto SS US Limitedon 07-25 US Limited Normal [facility] eGFRon 07-25-2023 GFR/1.73 sq M.predicted among non-blacks MDRD (S/P/Bld) [Vol rate/Area] 125 mL/min/1.73 m2 Normal >=59 [facility] Comment on above: Order Comment: Order added by Discern Expert. Result Comment: Real Estate Financial Analyst lucy kidney disease could be indicated at eGFR's of less than 60 mL/min/1.73m2. Kidney failure is indicated at less than 15 mL/min/1.73m2. Performed By: #### 1 3984388, 0126134, 3267065, 2400127, 3610082, 3177726 ####[facility] [address] [place] [address] C Urineon 06-30-2023 Bacteria identified Cx Nom (U) Normal [facility] Comment on above: Performed By: #### 2 598263 ####[address] [place] [address] Family Medicine Office/Clini c Noteon 06-28-2023 [facility] Medicine Office/Clinic Note Normal [facility] Comment on above: Result Comment: Elec tronically Signed By: Татьяна NICHOLS, Roverto Barron\.br\Date and Time Signed: 06/28/23 11:41 EDT Patient Educationon 06-28-20 Patient Education Normal [facility] ABO/Rhon 06-14-2023 ABO/Rh Positive Invalid Interpretation Code [facility] Comment on above: Performed By: #### 2 374252 ####[facility] [address] [place] [address] Auto Diffon 06-14-2023 Basophils/100 WBC (Bld) 0.8 % Normal 0.0-2.0 [facility] Comment on above: Order Comment: Order Added by Discern Expert. Performed By: #### 2 398074, 1342721, 1329426, 4922535, 1529900, 89348717 ####[facility] [address] [place] [address] Basophils/Leukocytes Auto (Bld) [Pure # fraction] 0.0 E9/L Normal 0.0-0.2 [facility] Comment on above: Order Comment: Order Added by Discern Expert. Performed By: #### 2 927967, 9696163, 4539110, 7655499, 0333879, 69869566 ####[facility] [address] [place] [address] Eosinophils/100 WBC (Bld) 1.9 % Normal 0.0-8.0 [facility] Comment on above: Order Comment: Order Added by Gisselle Expert. Performed By: #### 2 873473, 4429673, 8216194, 8067114, 1144642, 03893625 ####[address] [place] [address] Eosinophils/Leukocytes Auto (Bld) [Pure # fraction] 0.1 E9/L Normal 0.0-0.5 [facility] Comment on above: Order Comment: Order Added by Gisselle Expert. Performed By: #### 2 242129, 2927714, 5844673, 5301847, 7471000, 32782539 ####[address] [address] Lymphocytes/100 WBC (Bld) 24.5 % Normal 14.0-50.0 [facility] Comment on above: Order Comment: Order Added by Gisselle Expert. Performed By: #### 2 472771, 5094782, 1981169, 4141192, 2785432, 89970765 ####[address] [address] Lymphocytes/Leukocytes Auto (Bld) [Pure # fraction] 1.3 E9/L Normal 1.0-4.0 [facility] Comment on above: Order Comment: Order Added by Gisselle Expert. Performed By: #### 2 670975, 3623327, 0997937, 6336188, 1840639, 89199605 ####[address] [address] Monocytes/100 WBC (Bld) 7.8 % Normal 4.0-14.0 [facility] Comment on above: Order Comment: Order Added by Gisselle Expert. Performed By: #### 2 094132, 3441190, 1415336, 3218898, 9989926, 61904953 ####[address] [place] [address] Monocytes/Leukocytes Auto (Bld) [Pure # fraction] 0.4 E9/L Normal 0.2-1.0 [facility] Comment on above: Order Comment: Order Added by Gisselle Expert. Performed By: #### 2 591441, 9788109, 9801215, 7699989, 8938993, 16113793 ####[address] [place] [address] Neutrophils/100 WBC (Bld) 65.0 % Normal 36.0-75.0 [facility] Comment on above: Order Comment: Order Added by Discern Expert. Performed By: #### 2 768198, 3721190, 9164449, 5626641, 5291603, 38190192 ####[facility] [address] [place] [address] Neutrophils/Leukocytes Auto (Bld) [Pure # fraction] 3.5 E9/L Normal 2.0-7.5 [facility] Comment on above: Order Comment: Order Added by Discern Expert. Performed By: #### 2 837332, 5170451, 3471011, 7228410, 1392238, 79716169 ####[address] [address] BLOOD BANKOrdered By: Keila Kumar on 06-14-2023 ABO/Rh Interp Positive Invalid Interpretation Code [facility] BB Subsection BMPon 06-14-2023 Creatinine [Mass/Vol] 0.5 mg/dL Normal 0.5-1.3 [facility] Comment on above: Performed By: #### 2 900922, 1188143, 2268316, 2721277, 5623740, 26142435 ####[address] [place] [address] Urea nitrogen [Mass/Vol] 6 mg/dL Normal 5-21 [facility] Comment on above: Performed By: #### 2 272472, 2227745, 7741629, 8331577, 9043426, 54296586 ####[address] [place] [address] Urea nitrogen/Creatinine [Mass ratio] 12 No Units Normal 10-20 [facility] Comment on above: Performed By: #### 2 473973, 8099958, 5481910, 0849273, 5156147, 80910947 ####[facility] [address] [place] [address] Anion gap [Moles/Vol] 10 mmol/L Normal 6-16 [facility] Comment on above: Performed By: #### 2 506921, 4007767, 1016541, 2406589, 2390916, 25860171 ####[facility] [address] [place] [address] Calcium [Mass/Vol] 8.7 mg/dL Low 8.9-11.1 [facility] Comment on above: Performed By: #### 2 133812, 2382163, 8635292, 4930885, 7066552, 17690400 ####[facility] [address] [place] [address] Chloride [Moles/Vol] 107 mmol/L Normal 101-111 [facility] Comment on above: Performed By: #### 2 063782, 3359712, 5863686, 0655805, 8090475, 64542075 ####[facility] [address] [place] [address] CO2 [Moles/Vol] 21 mmol/L Normal 21-31 [facility] Comment on above: Performed By: #### 2 219308, 5538145, 4994591, 0148863, 4765217, 61788021 ####[facility] [address] [place] [address] Glucose [Mass/Vol] 77 mg/dL Normal 55-199 [facility] Comment on above: Result Comment: If t his glucose result represents a fasting glucose, interpretation should refer to the following reference range: 55-99 mg/dL Performed By: #### 2 853153, 5333722, 8373425, 1938974, 4449464, 52749808 ####[facility] [address] [place] [address] Potassium [Moles/Vol] 3.8 mmol/L Normal 3.5-5.3 [facility] Comment on above: Performed By: #### 2 811675, 2379484, 8169637, 8124155, 6666225, 56651524 ####[facility] [address] [place] [address] Sodium [Moles/Vol] 134 mmol/L Low 135-145 [facility] Comment on above: Performed By: #### 2 156503, 7259175, 4263414, 0354863, 2153058, 54804429 ####[facility] [address] [place] [address] BhCG Quanton 06-14-2023 HCG.beta subunit Qn 098404 m[IU]/mL High 1-3 [facility] Comment on above: Result Comment: GEST ATIONAL AGE HCG RANGE (mIU/mL) NON- <1-3 0.2-1 WEEKS 5-50 1-2 WEEKS 50-500 2-3 WEEKS 100-5,000 3-4 WEEKS 500-10,000 4-5 WEEKS 1,000-50,000 5-6 WEEKS 10,000-100,000 6-8 WEEKS 15,000-200,000 8-12 WEEKS 10,000-100,000 Performed By: #### 2 491220 ####[facility] [address] [place] [address] CBC w/ Auto Diffon Erythrocyte distribution width (RBC) [Ratio] 12.6 % Normal 10.9-14.2 [facility] Comment on above: Performed By: #### 2 774410, 1188933, 8322468, 3832875, 4557071, 21260030 ####[facility] [address] [place] [address] Hematocrit (Bld) [Volume fraction] 39.9 % Normal 34.0-46.0 [facility] Comment on above: Performed By: #### 2 586820, 3603951, 5071193, 8148407, 2889296, 90760710 ####[facility] [address] [place] [address] Hemoglobin (Bld) [Mass/Vol] 13.4 g/dL Normal 12.0-16.0 [facility] Comment on above: Performed By: #### 2 373857, 7316748, 7914721, 6757323, 1410938, 68748210 ####[address] [address] MCH (RBC) [Entitic mass] 29.8 pg Normal 27.0-34.0 [facility] Comment on above: Performed By: #### 2 181888, 2665869, 2321123, 4313419, 6592027, 90409928 ####[facility] [address] [place] [address] MCHC (RBC) [Mass/Vol] 33.6 g/dL Normal 31.4-36.0 [facility] Comment on above: Performed By: #### 2 363498, 3616908, 0179104, 9381841, 0721036, 89892520 ####[place] [address] MCV (RBC) [Entitic vol] 88.8 fL Normal 80.0-100.0 [facility] Comment on above: Performed By: #### 2 285277, 6442482, 6949351, 5767736, 2339607, 93955703 ####[address] [address] Platelet mean volume (Bld) [Entitic vol] 8.4 fL Normal 6.4-10.8 [facility] Comment on above: Performed By: #### 2 869427, 1174067, 5580428, 8813996, 9699835, 87016138 ####[address] [place] [address] Platelets (Bld) [#/Vol] 225.0 E9/L Normal 150.0-500.0 [facility] Comment on above: Performed By: #### 2 478608, 7723662, 9349776, 5120415, 5254437, 36082426 ####[id number] RBC (Bld) [#/Vol] 4.5 E12/L Normal 4.3-5.9 [facility] Comment on above: Performed By: #### 2 137321, 8669084, 9450871, 0753135, 2277369, 23936614 ####[facility] [address] [place] [address] WBC corrected for nucl RBC Auto (Bld) [#/Vol] 5.4 E9/L Normal 4.0-11.0 [facility] Comment on above: Performed By: #### 2 778749, 8740013, 9024410, 7561973, 5615877, 51083026 ####[facility] [address] [place] [address] CHEMISTRYOrdered By: SYSTEM SYSTEM on 06-14-2023 Albumin [...] 199 mg/dL FT Remisol HCG.beta subunit Qn 233750 m[IU]/mL High 1 - 3 mIU/mL [facility] [...] Consent for Treatmenton 05-17 Consent for Treatment [id number]:12 7 Normal [facility] ED Clinical Summaryon 2022 ED Clinical Summary Normal [facility] ED Note-Physicianon 06-14-20 ED Note-Physician Normal [facility] Comment on above: Result Comment: Elec tronically Signed By: Jos Ugalde PA-C\.br\Date and Time Signed: 06/14/23 11:58 EDT\.br\Electronically Co-Signed By: Kristian Guillermo DO.br\Date and Time Co-Signed: 06/14/23 17:02 EDT ED Patient Education Noteon 06-14-2023 ED Patient Education Note Normal [facility] ED Patient Summaryon 023 ED Patient Summary Normal [facility] HEMATOLOGYOrdered By: SYSTEM SYSTEM on 06-14-2023 [...] 33.6 g/dL Normal 31.4 - 36.0 gm/dL [facility] HemeAutoSS MCV (RBC) [Entitic vol] 88.8 fL Normal 80.0 - 100.[address] [facility] HemeAutoSS Platelet mean volume (Bld) [Entitic vol] 8.4 fL Normal 6.4 - 10.[address] [facility] HemeAutoSS Platelets (Bld) [#/Vol] 225.0 E9/L Normal 150.0 - 500.0 E9/L FT HemeAutoSS RBC (Bld) [#/Vol] 4.5 E12/L Normal 4.3 - 5.9 E12/L [facility] HemeAutoSS WBC corrected for nucl RBC Auto (Bld) [#/Vol] 5.4 E9/L Normal 4.0 - 11.0 E9/L [facility] HemeAutoSS Hep Func Panelon 06-14-2023 Bilirubin.indirect [Mass or moles/Vol] UTC Abnormal 0.1-0.9 [facility] Comment on above: Result Comment: Resu lt verified by Discern Rule. Performed result UTC (Unable to Calculate) was sent as an Alpha code due the inability to calculate a valid numeric value. Performed By: #### 2 029843, 1053817, 9716493, 6304836, 8103179, 85205960 ####[facility] [address] [place] [address] Albumin [Mass/Vol] 3.5 g/dL Normal 3.3-5.0 [facility] Comment on above: Performed By: #### 2 167166, 2834753, 3158104, 1900854, 6249322, 78418477 ####[facility] [address] [place] [address] Albumin/Globulin (S) [Mass conc ratio] 1.1 Normal 1.1-2.2 [facility] Comment on above: Performed By: #### 2 901641, 9023223, 3845251, 8797319, 7990006, 70985789 ####[facility] [address] [place] [address] ALP [Catalytic activity/Vol] 34 Int._Unit/L Normal 21-98 [facility] Comment on above: Performed By: #### 2 031399, 3289231, 6603689, 1190216, 3042390, 67483336 ####[facility] [address] [place] [address] ALT No additional P-5'-P [Catalytic activity/Vol] 13 Int._Unit/L Normal 6-46 [facility] Comment on above: Performed By: #### 2 446762, 2516886, 4619307, 5051757, 9277380, 93765556 ####[facility] [address] [place] [address] AST [Catalytic activity/Vol] 17 Int._Unit/L Normal 5-43 [facility] Comment on above: Performed By: #### 2 988880, 9781613, 3267295, 4934085, 6075823, 70145857 ####[facility] [address] [place] [address] Bilirubin [Mass/Vol] 0.6 mg/dL Normal 0.0-1.1 [facility] Comment on above: Performed By: #### 2 714765, 9266230, 2311690, 3225760, 1423938, 67954693 ####[facility] [address] [place] [address] Globulin (S) [Mass/Vol] 3.3 g/dL Normal 1.4-4.0 [facility] Comment on above: Performed By: #### 2 191400, 2918451, 6406905, 4360113, 3693785, 14932762 ####[facility] [address] [place] [address] Protein [Mass/Vol] 6.8 g/dL Normal 6.0-7.8 [facility] Comment on above: Performed By: #### 2 212836, 0115444, 5215482, 9105429, 0481095, 62751937 ####[facility] [address] [place] [address] Bilirubin.direct [Mass/Vol] mg/dL Normal 0.1-0.4 [facility] Comment on above: Performed By: #### 2 417359, 7469130, 9663366, 4663486, 2747546, 11738086 ####[facility] [address] [place] [address] Lipase Levelon 06-14-2023 Lipase [Catalytic activity/Vol] 28 U/L Normal 13-58 [facility] Comment on above: Performed By: #### 2 044388, 9008056, 2353383, 4204454, 7712528, 83896628 ####[facility] [address] [place] [address] Progress Note-Nurseon 2022 Progress Note-Nurse MAHESH Hinds verbalize d she was unable to locate patient at this time Normal [facility] UA With Cult Reflexon 2022 Bacteria LM Ql (Urine sed) TRACE Normal Trace [facility] Comment on above: Performed By: #### 1 0928614 ####[facility] [address] [place] [address] Bilirubin Ql (U) Negative Normal Negative [facility] Comment on above: Performed By: #### 1 6543944 ####[facility] [address] [place] [address] Clarity (U) CLEAR Normal Clear [facility] Comment on above: Performed By: #### 1 3408336 ####[facility] [address] [place] [address] Color (U) YELLOW Normal Yellow [facility] Comment on above: Performed By: #### 1 0536645 ####[address] [address] Epithelial cells.squamous LM.HPF (Urine sed) [#/Area] 3-4 Normal 0-2 [facility] Comment on above: Performed By: #### 1 1113271 ####[facility] [address] [place] [address] Glucose Test strip (U) [Mass/Vol] Negative Normal Negative [facility] Comment on above: Performed By: #### 1 3310120 ####[facility] [address] [place] [address] Hemoglobin Ql (U) Negative Normal Negative [facility] Comment on above: Performed By: #### 1 0504153 ####[address] [place] [address] Ketones (U) [Mass/Vol] Negative Normal Negative [facility] Comment on above: Performed By: #### 1 0798131 ####[address] [place] [address] Valentine.plasma/Valentine .RBC (Bld) [Mass ratio] 0-3 Normal 0-3 [facility] Comment on above: Performed By: #### 1 9480964 ####[address] [address] Mucus Ql (Urine sed) TRACE Normal [facility] Comment on above: Performed By: #### 1 3625241 ####[address] [place] [address] Nitrite Ql (U) Negative Normal Negative [facility] Comment on above: Performed By: #### 1 6068894 ####[address] [address] pH (U) 6.5 [pH] Invalid Interpretation Code 5.0-9.0 [facility] Comment on above: Performed By: #### 1 4222621 ####[address] [place] [address] Protein (U) [Mass/Vol] Negative Normal Negative [facility] Comment on above: Performed By: #### 1 8701767 ####[address] [address] Specific gravity (U) [Rel density] 1.015 Invalid Interpretation Code 1.005-1.030 [facility] Comment on above: Performed By: #### 1 0421871 ####[address] [address] Type of Urine collection method Clean Catch Normal [facility] Comment on above: Performed By: #### 1 7224460 ####[facility] [address] [place] [address] Urobilinogen Qn (U) 0.2 {Rola'U}/dL Normal 0.0-1.0 [facility] Comment on above: Performed By: #### 1 0394391 ####[facility] [address] [place] [address] WBC Auto Ql (U) TRACE Abnormal Negative [facility] Comment on above: Performed By: #### 1 8028798 ####[facility] [address] [place], [place] [address] WBC LM.HPF (Urine sed) [#/Area] 0-5 Normal 0-5 [facility] Comment on above: Performed By: #### 1 4854234 ####[facility] [address] [place], [place] [address] URINALYSISOrdered By: An Mccarty on 06-14-2023 Bacteria LM Ql (Urine sed) Trace /HPF Normal Trace/HPF FT UA Auto SS Bilirubin Ql (U) Negative (06/14/23 10:13 AM) Normal Negative FT UA Auto SS Clarity (U) Clear (06/14/23 10:13 AM) Normal Clear [facility] UA Auto SS Color (U) Yellow (06/14/23 10:13 AM) Normal Yellow [facility] UA Auto SS Epithelial cells.squamous LM.HPF (Urine sed) [#/Area] 3-4 /HPF Normal 0-2/HPF FT UA Auto SS Glucose Test strip (U) [Mass/Vol] Negative (06/14/23 10:13 AM) Normal Negative [facility] UA Auto SS Hemoglobin Ql (U) Negative (06/14/23 10:13 AM) Normal Negative [facility] UA Auto SS Ketones (U) [Mass/Vol] Negative (06/14/23 10:13 AM) Normal Negative FT UA Auto SS Valentine.plasma/Valentine .RBC (Bld) [Mass ratio] 0-3 /HPF Normal [...] FT UA Auto SS Urobilinogen Qn (U) 0.4085404 {Rola'U}/dL Normal 0.0 - 1.0 EU/dL FT UA Auto SS WBC Auto Ql (U) Trace *ABN* (06/14/23 10:13 AM) Invalid Interpretation Code Negative [facility] UA Auto SS WBC LM.HPF (Urine sed) [#/Area] 0-5 /HPF Normal 0-5/HPF [facility] UA Auto SS US 1st Trimesteron 06-14-2023 US 1st Trimester Normal [facility] eGFRon 06-14-2023 GFR/1.73 sq M.predicted among non-blacks MDRD (S/P/Bld) [Vol rate/Area] 130 mL/min/1.73 m2 Normal >=59 [facility] Comment on above: Order Comment: Order added by Discern Expert. Result Comment: Real Estate Financial Analyst lucy kidney disease could be indicated at eGFR's of less than 60 mL/min/1.73m2. Kidney failure is indicated at less than 15 mL/min/1.73m2. Performed By: #### 2 428831, 5585335, 8692169, 8278992, 8028133, 06204443 ####[facility] [address] [place] [address] CHEMISTRYOrdered By: SYSTEM SYSTEM on 06-12-2023 TSH Qn 3.80 m[IU]/L Normal 0.34 - 5.60 mcIU/mL [facility] Remisol Consent for Treatmenton 05-16 Consent for Treatment [id number]#[id number]:12 7 Normal [facility] Physician Orderon 06-12-2023 Physician Order [id number]#[id number]:12 7 Normal [facility] TSHon 06-12-2023 TSH Qn 3.80 m[IU]/L Normal 0.34-5.60 [facility] Comment on above: Performed By: #### 2 983938 ####[facility] [address] [place] [address] BhCG Quanton 05-22-2023 HCG.beta subunit Qn 151204 m[IU]/mL High 1-3 [facility] Comment on above: Result Comment: GEST ATIONAL AGE HCG RANGE (mIU/mL) NON- <1-3 0.2-1 WEEKS 5-50 1-2 WEEKS 50-500 2-3 WEEKS 100-5,000 3-4 WEEKS 500-10,000 4-5 WEEKS 1,000-50,000 5-6 WEEKS 10,000-100,000 6-8 WEEKS 15,000-200,000 8-12 WEEKS 10,000-100,000 Performed By: #### 2 295777 ####[facility] [address] [place] [address] Discharge Instructionson Discharge Instructions [id number]#[id number]:1 27 Normal [facility] ED Clinical Summaryon 2022 ED Clinical Summary Normal [facility] ED Note-Physicianon 05-22-20 23 ED Note-Physician Normal [facility] Comment on above: Result Comment: Elec tronically Signed By: Gopi Rodriguez DO.br\Date and Time Signed: 05/21/23 23:17 EDT ED Patient Education Noteon 05-22-2023 ED Patient Education Note Normal [facility] ED Patient Summaryon 08-08-2 023 ED Patient Summary Normal [facility] UA With Cult Reflexon 2022 Bacteria LM Ql (Urine sed) TRACE Normal Trace [facility] Comment on above: Performed By: #### 1 0785386 ####[facility] [address] [place] [address] Bilirubin Ql (U) Negative Normal Negative [facility] Comment on above: Performed By: #### 1 4742265 ####[facility] [address] [place] [address] Clarity (U) CLEAR Normal Clear [facility] Comment on above: Performed By: #### 1 1417386 ####[facility] [address] [place] [address] Color (U) DARK YELLO Abnormal Yellow [facility] Comment on above: Performed By: #### 1 6641257 ####[facility] [address] [place] [address] Epithelial cells.squamous LM.HPF (Urine sed) [#/Area] 0-2 Normal 0-2 [facility] Comment on above: Performed By: #### 1 8464393 ####[facility] [address] [place] [address] Glucose Test strip (U) [Mass/Vol] Negative Normal Negative [facility] Comment on above: Performed By: #### 1 3580521 ####[facility] [address] [place] [address] Hemoglobin Ql (U) TRACE Abnormal Negative [facility] Comment on above: Performed By: #### 1 4825153 ####[facility] [address] [place] [address] Ketones (U) [Mass/Vol] TRACE Abnormal Negative [facility] Comment on above: Performed By: #### 1 1893140 ####[facility] [address] [place] [address] Valentine.plasma/Valentine .RBC (Bld) [Mass ratio] 4-20 Normal 0-3 [facility] Comment on above: Performed By: #### 1 4638343 ####[address] [address] Mucus Ql (Urine sed) 1+ Normal [facility] Comment on above: Performed By: #### 1 6714130 ####[address] [address] Nitrite Ql (U) Negative Normal Negative [facility] Comment on above: Performed By: #### 1 5423432 ####[address] [address] pH (U) 6.0 [pH] Invalid Interpretation Code 5.0-9.0 [facility] Comment on above: Performed By: #### 1 3450967 ####[address] [address] Protein (U) [Mass/Vol] 2+ Abnormal Negative [facility] Comment on above: Performed By: #### 1 5037431 ####[place] [address] Specific gravity (U) [Rel density] >=1.030 Invalid Interpretation Code 1.005-1.030 [facility] Comment on above: Performed By: #### 1 2119103 ####[address] [address] Type of Urine collection method Clean Catch Normal [facility] Comment on above: Performed By: #### 1 1001217 ####[address] [address] Urobilinogen Qn (U) 0.2 {Rola'U}/dL Normal 0.0-1.0 [facility] Comment on above: Performed By: #### 1 3631639 ####[address] [address] WBC Auto Ql (U) Negative Normal Negative [facility] Comment on above: Performed By: #### 1 9483023 ####[address] [address] WBC LM.HPF (Urine sed) [#/Area] 0-5 Normal 0-5 [facility] Comment on above: Performed By: #### 1 5061261 ####[facility] [address] [place] [address] US 1st Trimesteron 05-22-2023 US 1st Trimester Normal [facility] Auto Diffon 05-21-2023 Basophils/100 WBC (Bld) 1.0 % Normal 0.0-2.0 [facility] Comment on above: Order Comment: Order Added by Discern Expert. Performed By: #### 2 094826, 1997320, 46714056, 19747542, 8770682, 3011718, 8784354 ####[facility] [address] [place] [address] Basophils/Leukocytes Auto (Bld) [Pure # fraction] 0.1 E9/L Normal 0.0-0.2 [facility] Comment on above: Order Comment: Order Added by Discern Expert. Performed By: #### 2 912224, 0604830, 16226115, 81669917, 2349307, 8553423, 4153791 ####[facility] [address] [place] [address] Eosinophils/100 WBC (Bld) 1.5 % Normal 0.0-8.0 [facility] Comment on above: Order Comment: Order Added by Discern Expert. Performed By: #### 2 832782, 4715186, 26835257, 78524433, 9521824, 1775721, 6535604 ####[facility] [address] [place] [address] Eosinophils/Leukocytes Auto (Bld) [Pure # fraction] 0.1 E9/L Normal 0.0-0.5 [facility] Comment on above: Order Comment: Order Added by Discern Expert. Performed By: #### 2 949245, 4451989, 97436528, 34189280, 5287689, 5837778, 1676729 ####[address] [place] [address] Lymphocytes/100 WBC (Bld) 36.6 % Normal 14.0-50.0 [facility] Comment on above: Order Comment: Order Added by Discern Expert. Performed By: #### 2 242973, 1766925, 37791647, 44366017, 8320980, 9293947, 7326123 ####[facility] [address] [place] [address] Lymphocytes/Leukocytes Auto (Bld) [Pure # fraction] 2.5 E9/L Normal 1.0-4.0 [facility] Comment on above: Order Comment: Order Added by Discern Expert. Performed By: #### 2 222643, 7685520, 11912734, 03682251, 8406502, 9014277, 0021240 ####[address] [place] [address] Monocytes/100 WBC (Bld) 8.2 % Normal 4.0-14.0 [facility] Comment on above: Order Comment: Order Added by Discern Expert. Performed By: #### 2 358056, 9786272, 71049773, 45582786, 4716855, 0669462, 9994330 ####[address] [place] [address] Monocytes/Leukocytes Auto (Bld) [Pure # fraction] 0.6 E9/L Normal 0.2-1.0 [facility] Comment on above: Order Comment: Order Added by Discern Expert. Performed By: #### 2 999011, 8664188, 20894557, 78158275, 2872588, 9226942, 9747226 ####[address] [place] [address] Neutrophils/100 WBC (Bld) 52.7 % Normal 36.0-75.0 [facility] Comment on above: Order Comment: Order Added by Gisselle Expert. Performed By: #### 2 562455, 5436396, 81254786, 30616461, 5058761, 8409953, 0893682 ####[address] [place] [address] Neutrophils/Leukocytes Auto (Bld) [Pure # fraction] 3.6 E9/L Normal 2.0-7.5 [facility] Comment on above: Order Comment: Order Added by Discern Expert. Performed By: #### 2 846045, 0802932, 60865610, 52350198, 0146345, 4009153, 7050026 ####[facility] [address] [place] [address] BMPon 05-21-2023 Creatinine [Mass/Vol] 0.7 mg/dL Normal 0.5-1.3 [facility] Comment on above: Performed By: #### 2 553944, 0938653, 35436033, 26980467, 1073435, 6215421, 1132217 ####[facility] [address] [place] [address] Urea nitrogen [Mass/Vol] 8 mg/dL Normal 5-21 [facility] Comment on above: Performed By: #### 2 282742, 3056965, 71762376, 52164400, 7789378, 8645238, 5129488 ####[facility] [address] [place] [address] Urea nitrogen/Creatinine [Mass ratio] 11 No Units Normal 10-20 [facility] Comment on above: Performed By: #### 2 805087, 3826080, 32761702, 22237290, 5008366, 2427747, 0934252 ####[facility] [address] [place] [address] Anion gap [Moles/Vol] 12 mmol/L Normal 6-16 [facility] Comment on above: Performed By: #### 2 435685, 5489816, 01437105, 65095996, 4966325, 8906450, 9055843 ####[facility] [address] [place] [address] Calcium [Mass/Vol] 9.2 mg/dL Normal 8.9-11.1 [facility] Comment on above: Performed By: #### 2 418115, 0003231, 64100543, 09745221, 8648393, 3253558, 8241815 ####[facility] [address] [place] [address] Chloride [Moles/Vol] 104 mmol/L Normal 101-[address] [facility] Comment on above: Performed By: #### 2 404396, 2994612, 79304224, 98190745, 8642287, 8825827, 6723966 ####[facility] [address] [place] [address] CO2 [Moles/Vol] 24 mmol/L Normal 21-31 [facility] Comment on above: Performed By: #### 2 157134, 0928172, 09055226, 57326999, 8215351, 0474838, 1592734 ####[facility] [address] [place] [address] Glucose [Mass/Vol] 87 mg/dL Normal 55-199 [facility] Comment on above: Result Comment: If t his glucose result represents a fasting glucose, interpretation should refer to the following reference range: 55-99 mg/dL Performed By: #### 2 417077, 3058587, 12334971, 63723533, 2798078, 3743694, 1774075 ####[facility] [address] [place] [address] Potassium [Moles/Vol] 3.2 mmol/L Low 3.5-5.3 [facility] Comment on above: Performed By: #### 2 606756, 7789119, 85763625, 96099077, 0404205, 1175014, 7973202 ####[facility] [address] [place] [address] Sodium [Moles/Vol] 137 mmol/L Normal 135-145 [facility] Comment on above: Performed By: #### 2 993139, 4482541, 90398129, 15163263, 5753507, 0881061, 4251614 ####[facility] [address] [place] [address] CBC w/ Auto Diffon 3 Erythrocyte distribution width (RBC) [Ratio] 13.3 % Normal 10.9-14.2 [facility] Comment on above: Performed By: #### 2 658904, 3514376, 58087045, 28025973, 2263062, 1556002, 1362855 ####[facility] [address] [place] [address] Hematocrit (Bld) [Volume fraction] 39.0 % Normal 34.0-46.0 [facility] Comment on above: Performed By: #### 2 506909, 8828200, 17816946, 32478787, 4601736, 4359028, 9672207 ####[facility] [address] [place] [address] Hemoglobin (Bld) [Mass/Vol] 13.3 g/dL Normal 12.0-16.0 [facility] Comment on above: Performed By: #### 2 038177, 5742428, 41013412, 12609330, 2770374, 6626393, 1061975 ####[facility] [address] [place] [address] MCH (RBC) [Entitic mass] 30.3 pg Normal 27.0-34.0 [facility] Comment on above: Performed By: #### 2 215437, 2517467, 84243941, 55703916, 5199795, 6641679, 4916890 ####[facility] [address] [place] [address] MCHC (RBC) [Mass/Vol] 34.2 g/dL Normal 31.4-36.0 [facility] Comment on above: Performed By: #### 2 569077, 4475915, 49252666, 06920865, 9376332, 4362959, 2244366 ####[facility] [address] [place] [address] MCV (RBC) [Entitic vol] 88.7 fL Normal 80.0-100.0 [facility] Comment on above: Performed By: #### 2 595634, 0766962, 64721812, 00010583, 2184796, 5919500, 2362259 ####[facility] [address] [place] [address] Platelet mean volume (Bld) [Entitic vol] 7.8 fL Normal 6.4-10.8 [facility] Comment on above: Performed By: #### 2 748782, 4149681, 10417960, 71523205, 5168588, 7705547, 2814989 ####[facility] [address] [place] [address] Platelets (Bld) [#/Vol] 225.0 E9/L Normal 150.0-500.0 [facility] Comment on above: Performed By: #### 2 792278, 8709215, 84025028, 52967052, 5047661, 1115958, 7081185 ####[facility] [address] [place] [address] RBC (Bld) [#/Vol] 4.4 E12/L Normal 4.3-5.9 [facility] Comment on above: Performed By: #### 2 416981, 1409669, 29197788, 17882379, 3695610, 9720884, 6141281 ####[facility] [address] [place] [address] WBC corrected for nucl RBC Auto (Bld) [#/Vol] 6.8 E9/L Normal 4.0-11.0 [facility] Comment on above: Performed By: #### 2 531874, 4360205, 32214024, 42574448, 9822720, 5522690, 6561945 ####[facility] [address] [place] [address] CHEMISTRYOrdered By: SYSTEM SYSTEM on 05-21-2023 HCG.beta subunit Qn 523178 m[IU]/mL High 1 - 3 mIU/mL [facility] [...] Remisol Consent for Treatmenton Consent for Treatment [id number]:12 7 Normal [facility] HEMATOLOGYOrdered By: SYSTEM SYSTEM on 05-21-2023 [...] 13.3 % Normal 10.9 - 14.2 % FT HemeAutoSS Hematocrit (Bld) [Volume fraction] 39.0 % Normal 34.0 - 46.0 % FT HemeAutoSS Hemoglobin (Bld) [Mass/Vol] 13.3 g/dL Normal 12.0 - 16.0 gm/dL FT HemeAutoSS MCH (RBC) [Entitic mass] 30.3 pg [...] Bilirubin.indirect [Mass or moles/Vol] UTC Abnormal 0.1-0.9 [facility] Comment on above: Result Comment: Resu lt verified by Discern Rule. Performed result UTC (Unable to Calculate) was sent as an Alpha code due the inability to calculate a valid numeric value. Performed By: #### 2 703626, 1395894, 28363050, 69284760, 9162902, 0298442, 1407673 ####[facility] [place] [address] Albumin [Mass/Vol] 3.8 g/dL Normal 3.3-5.0 [facility] Comment on above: Performed By: #### 2 921060, 6322649, 20978416, 13780437, 5236501, 1145863, 5509239 ####[facility] [address] [place] [address] Albumin/Globulin (S) [Mass conc ratio] 1.2 Normal 1.1-2.2 [facility] Comment on above: Performed By: #### 2 986189, 6033939, 52551359, 90673248, 2207938, 0469863, 0564080 ####[facility] [address] [place] [address] ALP [Catalytic activity/Vol] 42 Int._Unit/L Normal 21-98 [facility] Comment on above: Performed By: #### 2 241097, 8313292, 47501698, 73576511, 7967824, 8194824, 6487503 ####[facility] [address] [place] [address] ALT No additional P-5'-P [Catalytic activity/Vol] 13 Int._Unit/L Normal 6-46 [facility] Comment on above: Performed By: #### 2 090742, 0543409, 58023622, 40484254, 7963104, 3366968, 1287921 ####[facility] [address] [place] [address] AST [Catalytic activity/Vol] 14 Int._Unit/L Normal 5-43 [facility] Comment on above: Performed By: #### 2 047749, 9146970, 01571487, 13163971, 6269672, 2244866, 7702350 ####[facility] [address] [place] [address] Bilirubin [Mass/Vol] 0.5 mg/dL Normal 0.0-1.1 [facility] Comment on above: Performed By: #### 2 596985, 6392499, 38027995, 12650329, 7460060, 8436001, 1525988 ####[facility] [address] [place] [address] Globulin (S) [Mass/Vol] 3.1 g/dL Normal 1.4-4.0 [facility] Comment on above: Performed By: #### 2 564385, 9649280, 06166511, 64020993, 4392723, 7872251, 1214108 ####[facility] [address] [place] [address] Protein [Mass/Vol] 6.9 g/dL Normal 6.0-7.8 [facility] Comment on above: Performed By: #### 2 237031, 6886866, 46936722, 61826216, 8295030, 4801211, 3172319 ####[facility] [address] [place] [address] Bilirubin.direct [Mass/Vol] mg/dL Normal 0.1-0.4 [facility] Comment on above: Performed By: #### 2 279610, 1410158, 57633244, 09739763, 7768812, 2447317, 6599246 ####[facility] [address] [place] [address] Lipase Levelon 05-21-2023 Lipase [Catalytic activity/Vol] 31 U/L Normal 13-58 [facility] Comment on above: Performed By: #### 2 645995, 5792890, 76206098, 78849588, 3790517, 2656549, 2272704 ####[facility] [address] [place] [address] Troponin 0 Hr.on 05-21-2023 Troponin I.cardiac [Mass/Vol] 2.50 pg/mL Low 10.10-27.10 [facility] Comment on above: Result Comment: The 95% CI (Confidence Interval) PPV (Positive Predictive Value) for myocardial infarction in females is 38 pg/mL, in males 51 pg/mL. The results should be used in conjunction with clinical conditions of myocardial infarction.(Access High Sensitivity Troponin I Instructions For Use, Ziggy Regina, May 2018) Performed By: #### 2 391394, 0150457, 51590938, 04551310, 5779151, 9119068, 7971373 ####[facility] [address] [place] [address] URINALYSISOrdered By: Jose Miguel nelson on 05-21-2023 [...] Interpretation Code Negative [facility] UA Auto SS Valentine.plasma/Valentine .RBC (Bld) [Mass ratio] 4-20 /HPF Normal [...] [facility] UA Auto SS Urobilinogen Qn (U) 0.3790290 {Rola'U}/dL Normal 0.0 - 1.0 EU/dL [facility] UA Auto SS WBC Auto Ql (U) Negative (05/21/23 10:17 PM) Normal Negative [facility] UA Auto SS WBC LM.HPF (Urine sed) [#/Area] 0-5 /HPF Normal 0-5/HPF [facility] UA Auto SS eGFRon 05-21-2023 GFR/1.73 sq M.predicted among non-blacks MDRD (S/P/Bld) [Vol rate/Area] 120 mL/min/1.73 m2 Normal >=59 [facility] Comment on above: Order Comment: Order added by Discern Expert. Result Comment: Real Estate Financial Analyst lucy kidney disease could be indicated at eGFR's of less than 60 mL/min/1.73m2. Kidney failure is indicated at less than 15 mL/min/1.73m2. Performed By: #### 2 207443, 6538079, 31695146, 99154793, 4455909, 5673153, 4390747 ####[facility] [address] [place] [address] PAP [id number] 05-03-2023 C. trachomatis rRNA MAHAD+probe Ql (Cvx) Negative Invalid Interpretation Code Negative [facility] Comment on above: Performed By: #### 3 [id number] ####[facility] [address] [place] [address] Cytology report Cyto stain Doc (Cvx/Vag) Note Invalid Interpretation Code [facility] Comment on above: Result Comment: TEST S RESULT FLAG UNITS REF RANGE LAB Clinician Provided Cytology InformationSource.............EndocervixNo. of containers..01 ThinPrep VialDIAGNOSIS: 01NEGATIVE FOR INTRAEPITHELIAL LESION OR MALIGNANCY.Specimen adequacy: 01Satisfactory for evaluation. Endocervical and/or squamous metaplasticcells (endocervical component) are present.Performed by: 01Analilia Shea Instrumental Music Teacher (ASCP). 01Note: Note 01The Pap smear is [...] High<-Panic Low,>-Panic High,A-Abnormal,AA-Critical Abnormal -----Performed at:[address] [place] [address]MqqcusJoya Walton MD, Performed By: #### 3 [id number] ####[facility] [address] [place] [address] N. gonorrhoeae rRNA MAHAD+probe Ql (Cvx) Negative Invalid Interpretation Code Negative [facility] Comment on above: Result Comment: Perf ormed at: [facility] [address] [id number] MD Anton HinsonPerformed at: =G [facility] [address] [place] [id number] MD Anton Hinson Performed By: #### 3 [id number] ####[facility] [address] [place] [address] C Urineon 05-02-2023 Bacteria identified Cx Nom (U) Normal [facility] Comment on above: Performed By: #### 2 039729 ####[facility] [address] [place] [address] HIV Screen 4th Generation wR fxon 05-01-2023 HIV 1+2 Ab+HIV1 p24 Ag IA Ql Non-Reactive Invalid Interpretation Code Non Reactive [facility] Comment on above: Result Comment: HIV NegativeHIV-1/HIV-2 antibodies and HIV-1 p24 antigen were NOT detected.There is no laboratory evidence of HIV infection.Performed at: [address] [id number] PhD Caroline [place] Performed By: #### 1 54203879, 35397047, 929325935, 0420706, 9957307 ####[facility] [address] [place] [address] Hep Bs Agon 05-01-2023 HBV surface Ag IA Ql Negative Invalid Interpretation Code Negative [facility] Comment on above: Result Comment: Perf ormed at: [address] [id number] PhD [place] Performed By: #### 1 82061695, 94753373, 568075794, 7979389, 9212616 ####[facility] [address] [place] [address] RPR with Conf Rfxon 05-01-20 23 Reagin Ab RPR Ql (S) Non-Reactive Invalid Interpretation Code Non Reactive [facility] Comment on above: Result Comment: Perf ormed at: [address] [id number] PhD [place] Performed By: #### 1 62889421, 70161411, 849157918, 4387181, 6300868 ####[facility] [address] [place] [address] Rubella IgGon 05-01-2023 Rubella virus IgG Qn (S) [IU]/mL Low Immune >0.99 [facility] Comment on above: Result Comment: Non- immune <0.90Equivocal 0.90 - 0.99Immune >0.99Performed at: [facility] [place], [place] [id number] PhD [place] Performed By: #### 1 56498155, 21184833, 783891388, 7143303, 0129803 ####[facility] [address] [place] [address] ABO/Rhon 04-30-2023 ABO/Rh Positive Invalid Interpretation Code [facility] Comment on above: Performed By: #### 2 468795, 19331855 ####[facility] [address] [place] [address] ABSCon 04-30-2023 ABSC Gel Interp Negative Normal [facility] Comment on above: Performed By: #### 2 812452, 92058552 ####[address] [address] BLOOD BANKOrdered By: Diamond Junior on 04-30-2023 ABO/Rh Interp Positive Invalid Interpretation Code [facility] BB Subsection ABSC Gel Interp Negative (04/30/23 9:30 AM) Normal [facility] BB Subsection BhCG Quanton 04-30-2023 [place] [address] m[IU]/mL High 1-3 [facility] Comment on above: Result Comment: GEST ATIONAL AGE HCG RANGE (mIU/mL) NON- <1-3 0.2-1 WEEKS 5-50 1-2 WEEKS 50-500 2-3 WEEKS 100-5,000 3-4 WEEKS 500-10,000 4-5 WEEKS 1,000-50,000 5-6 WEEKS 10,000-100,000 6-8 WEEKS 15,000-200,000 8-12 WEEKS 10,000-100,000 Performed By: #### 2 912943 ####[facility] [address] [place] [address] CBC w/Indiceson 04-30-2023 Erythrocyte distribution width (RBC) [Ratio] 13.7 % Normal 10.9-14.2 [facility] Comment on above: Performed By: #### 1 55319963, 19774084, 982560652, 6167035, 7083285 ####[place] [address] Hematocrit (Bld) [Volume fraction] 40.7 % Normal 34.0-46.0 [facility] Comment on above: Performed By: #### 1 44850078, 52957353, 683312686, 8533209, 9727929 ####[place] [address] Hemoglobin (Bld) [Mass/Vol] 13.8 g/dL Normal 12.0-16.0 [facility] Comment on above: Performed By: #### 1 69472527, 09270266, 446695666, 6828879, 0109989 ####[place] [address] MCH (RBC) [Entitic mass] 30.5 pg Normal 27.0-34.0 [facility] Comment on above: Performed By: #### 1 41700603, 14055747, 940767366, 7359254, 7901263 ####[place] [address] MCHC (RBC) [Mass/Vol] 33.9 g/dL Normal 31.4-36.0 [facility] Comment on above: Performed By: #### 1 78103026, 14475301, 369338493, 4791170, 1279569 ####[address] [address] MCV (RBC) [Entitic vol] 89.9 fL Normal 80.0-100.0 [facility] Comment on above: Performed By: #### 1 14591797, 82195553, 450630836, 4497950, 0406091 ####[address] [address] Platelet mean volume (Bld) [Entitic vol] 8.2 fL Normal 6.4-10.8 [facility] Comment on above: Performed By: #### 1 39932829, 62897579, 773654468, 4691753, 5322577 ####[facility] [address] [place] [address] Platelets (Bld) [#/Vol] 279.0 E9/L Normal 150.0-500.0 [facility] Comment on above: Performed By: #### 1 71136303, 57255357, 882297460, 6790949, 9499725 ####[facility] [address] [place] [address] RBC (Bld) [#/Vol] 4.5 E12/L Normal 4.3-5.9 [facility] Comment on above: Performed By: #### 1 34217237, 56524120, 415332059, 0511856, 8009792 ####[facility] [address] [place] [address] WBC corrected for nucl RBC Auto (Bld) [#/Vol] 5.8 E9/L Normal 4.0-11.0 [facility] Comment on above: Performed By: #### 1 87221773, 27705287, 500001572, 8999338, 6347302 ####[facility] [address] [place] [address] CHEMISTRYOrdered By: SYSTEM SYSTEM on 04-30-2023 [place] [address] m[IU]/mL High 1 - 3 mIU/mL [facility] Remisol Consent for Treatmenton 04-14 Consent for Treatment [id number]#1.00CD:12 7 Normal [facility] HEMATOLOGYOrdered By: Temi Romero on 04-30-2023 Erythrocyte distribution width (RBC) [Ratio] 13.7 % Normal 10.9 - 14.2 % FT HemeAutoSS Hematocrit (Bld) [Volume fraction] 40.7 % Normal 34.0 - 46.0 % [facility] HemeAuto[facility] Hemoglobin (Bld) [Mass/Vol] 13.8 g/dL Normal 12.0 - 16.0 gm/dL [facility]eAuto[facility] MCH (RBC) [Entitic mass] 30.5 pg Normal 27.0 - 34.0 pg FT HemeAutoSS MCHC (RBC) [Mass/Vol] 33.9 g/dL Normal 31.4 - 36.0 gm/dL FT HemeAutoSS MCV (RBC) [Entitic vol] 89.9 fL Normal 80.0 - 100.0 fL [facility] HemeAutoSS Platelet mean volume (Bld) [Entitic vol] 8.2 fL Normal 6.4 - 10.8 fL FT HemeAuto[facility] Platelets (Bld) [#/Vol] 279.0 E9/L Normal 150.0 - 500.0 E9/L [facility]eAuto[facility] RBC (Bld) [#/Vol] 4.5 E12/L Normal 4.3 - 5.9 E12/L [facility] WBC corrected for nucl RBC Auto (Bld) [#/Vol] 5.8 E9/L Normal 4.0 - 11.0 E9/L [facility] PAP [id number] 04-30-2023 Collection Technique BRUSH-SPATULA Normal [facility] Comment on above: Performed By: #### 3 [id number] ####[facility] [address] [place] [address] Gynecological Body Site ENDOCERVIX Normal [facility] Comment on above: Performed By: #### 3 [id number] ####[facility] [address] [place] [address] Physician Orderon 04-30-2023 Physician Order [id number]:1 27 Normal [facility] Physician Order [id number]#[id number]:1 27 Normal [facility] BhCG Quanton 04-26-2023 [place] [address] m[IU]/mL High 1-3 [facility] Comment on above: Result Comment: GEST ATIONAL AGE HCG RANGE (mIU/mL) NON- <1-3 0.2-1 WEEKS 5-50 1-2 WEEKS 50-500 2-3 WEEKS 100-5,000 3-4 WEEKS 500-10,000 4-5 WEEKS 1,000-50,000 5-6 WEEKS 10,000-100,000 6-8 WEEKS 15,000-200,000 8-12 WEEKS 10,000-100,000 Performed By: #### 2 692876 ####[facility] [address] [place] [address] CHEMISTRYOrdered By: SYSTEM SYSTEM on 04-26-2023 [place] [address] m[IU]/mL High 1 - 3 mIU/mL [facility] Remisol Consent for Treatmenton 04-14 Consent for Treatment [id number]:12 7 Normal [facility] Discharge Instructionson Discharge Instructions [id number]#[id number]:1 27 Normal [facility] ED Clinical Summaryon 2022 ED Clinical Summary Normal [facility] ED Note-Physicianon 04-26-20 ED Note-Physician Normal [facility] Comment on above: Result Comment: Elec tronically Signed By: Jos Ugalde PA-C\.br\Date and Time Signed: 04/26/23 10:59 EDT\.br\Electronically Co-Signed By: Laura Noel M.D.\.br\Date and Time Co-Signed: 04/26/23 11:01 EDT ED Patient Education Noteon 04-26-2023 ED Patient Education Note Normal [facility] ED Patient Summaryon 023 ED Patient Summary Normal [facility] UA With Cult Reflexon 2022 Bilirubin Ql (U) Negative Normal Negative [facility] Comment on above: Performed By: #### 1 6346219 ####[facility] [address] [place] [address] Clarity (U) CLEAR Normal Clear [facility] Comment on above: Performed By: #### 1 4223455 ####[facility] [address] [place] [address] Color (U) YELLOW Normal Yellow [facility] Comment on above: Performed By: #### 1 9659178 ####[facility] [address] [place] [address] Crystals LM Ql (Urine sed) Present Normal [facility] Comment on above: Performed By: #### 1 4870621 ####[facility] [address] [place] [address] Epithelial cells.squamous LM.HPF (Urine sed) [#/Area] 0-2 Normal 0-2 [facility] Comment on above: Performed By: #### 1 0658032 ####[facility] [address] [place] [address] Glucose Test strip (U) [Mass/Vol] Negative Normal Negative [facility] Comment on above: Performed By: #### 1 9214944 ####[address] [address] Hemoglobin Ql (U) Negative Normal Negative [facility] Comment on above: Performed By: #### 1 7271567 ####[facility] [address] [place] [address] Ketones (U) [Mass/Vol] Negative Normal Negative [facility] Comment on above: Performed By: #### 1 6321065 ####[facility] [address] [place] [address] Valentine.plasma/Valentine .RBC (Bld) [Mass ratio] 0-3 Normal 0-3 [facility] Comment on above: Performed By: #### 1 4324191 ####[facility] [address] [place] [address] Mucus Ql (Urine sed) 2+ Normal [facility] Comment on above: Performed By: #### 1 7876088 ####[address] [address] Nitrite Ql (U) Negative Normal Negative [facility] Comment on above: Performed By: #### 1 4747986 ####[facility] [address] [place] 3010157 pH (U) 8.5 [pH] Invalid Interpretation Code 5.0-9.0 [facility] Comment on above: Performed By: #### 1 2401159 ####[address] [address] Protein (U) [Mass/Vol] Negative Normal Negative [facility] Comment on above: Performed By: #### 1 8067158 ####[place] 4202157 Specific gravity (U) [Rel density] 1.015 Invalid Interpretation Code 1.005-1.030 [facility] Comment on above: Performed By: #### 1 7767491 ####[place] 4202157 Type of Urine collection method Clean Catch Normal [facility] Comment on above: Performed By: #### 1 3276371 ####[place] 4[address]157 Urobilinogen Qn (U) 1.0 {Rola'U}/dL Normal 0.0-1.0 [facility] Comment on above: Performed By: #### 1 7461215 ####[place] 4202157 WBC Auto Ql (U) Negative Normal Negative [facility] Comment on above: Performed By: #### 1 6784746 ####[place] 4202157 WBC LM.HPF (Urine sed) [#/Area] 0-5 Normal 0-5 [facility] Comment on above: Performed By: #### 1 0071529 ####[address] [address] URINALYSISOrdered By: An Lassiter on 04-26-2023 Bilirubin Ql (U) Negative (04/26/23 9:15 AM) Normal Negative [facility] UA Auto SS Clarity (U) Clear (04/26/23 9:15 AM) Normal Clear [facility] UA Auto SS Color (U) Yellow (04/26/23 [...] AM) Normal Negative [facility] UA Auto SS Valentine.plasma/Valentine .RBC (Bld) [Mass ratio] 0-3 /HPF Normal [...] [facility] UA Auto SS Urobilinogen Qn (U) 1.4527192 {Rola'U}/dL Normal 0.0 - 1.0 EU/dL [facility] UA Auto SS WBC Auto Ql (U) Negative (04/26/23 9:15 AM) Normal Negative [facility] UA Auto SS WBC LM.HPF (Urine sed) [#/Area] 0-5 /HPF Normal 0-5/HPF [facility] UA Auto SS US 1st Trimesteron 04-26-2023 US 1st Trimester Normal [facility] US Transvaginalon 04-26-2023 US Transvaginal Normal [facility] Coding Summary.on 02-02-2023 Coding Summary. Normal [facility] Auto Diffon 01-31-2023 Basophils/100 WBC (Bld) 0.3 % Normal 0.0-2.0 [facility] Comment on above: Order Comment: Order Added by Discern Expert. Performed By: #### 2 754692, 6530594, 00291445, 2116964 ####[address] [address] Basophils/Leukocytes Auto (Bld) [Pure # fraction] 0.0 E9/L Normal 0.0-0.2 [facility] Comment on above: Order Comment: Order Added by Gisselle Expert. Performed By: #### 2 175183, 4815369, 24060306, 7800433 ####[address] [address] Eosinophils/100 WBC (Bld) 2.8 % Normal 0.0-8.0 [facility] Comment on above: Order Comment: Order Added by Discern Expert. Performed By: #### 2 843459, 2500034, 64296221, 9285541 ####[facility] [address] [place] [address] Eosinophils/Leukocytes Auto (Bld) [Pure # fraction] 0.1 E9/L Normal 0.0-0.5 [facility] Comment on above: Order Comment: Order Added by Gisselle Expert. Performed By: #### 2 083929, 1291728, 72702234, 2544849 ####[address] [address] Lymphocytes/100 WBC (Bld) 30.0 % Normal 14.0-50.0 [facility] Comment on above: Order Comment: Order Added by Gisselle Expert. Performed By: #### 2 436104, 4664386, 33387352, 6302649 ####[facility] [address] [place] [address] Lymphocytes/Leukocytes Auto (Bld) [Pure # fraction] 1.5 E9/L Normal 1.0-4.0 [facility] Comment on above: Order Comment: Order Added by Discern Expert. Performed By: #### 2 070097, 3836716, 97544472, 4624094 ####[facility] [address] [place] [address] Monocytes/100 WBC (Bld) 7.0 % Normal 4.0-14.0 [facility] Comment on above: Order Comment: Order Added by Discern Expert. Performed By: #### 2 201515, 4223098, 19248321, 9461406 ####[address] [address] Monocytes/Leukocytes Auto (Bld) [Pure # fraction] 0.4 E9/L Normal 0.2-1.0 [facility] Comment on above: Order Comment: Order Added by Gisselle Expert. Performed By: #### 2 496659, 9564962, 93866010, 0316634 ####[address] [address] Neutrophils/100 WBC (Bld) 59.9 % Normal 36.0-75.0 [facility] Comment on above: Order Comment: Order Added by Gisselle Expert. Performed By: #### 2 872570, 8741088, 39331888, 8771381 ####[address] [address] Neutrophils/Leukocytes Auto (Bld) [Pure # fraction] 3.1 E9/L Normal 2.0-7.5 [facility] Comment on above: Order Comment: Order Added by Gisselle Expert. Performed By: #### 2 411164, 2343734, 83388766, 5656618 ####[place] [address] [place] [address] B hCG Qualon 01-31-2023 Beta hCG Ql Negative Normal [facility] Comment on above: Performed By: #### 2 1784703, 05539448 ####[facility] [address] [place] [address] BMPon 01-31-2023 Creatinine [Mass/Vol] 0.8 mg/dL Normal 0.5-1.3 [facility] Comment on above: Performed By: #### 2 578385, 6304509, 64690041, 1977904 ####[facility] [address] [place] [place] [address] Urea nitrogen [Mass/Vol] 9 mg/dL Normal 5-21 [facility] Comment on above: Performed By: #### 2 271375, 7120293, 69825917, 3562203 ####[facility] [address] [place] [address] Urea nitrogen/Creatinine [Mass ratio] 11 No Units Normal 10-20 [facility] Comment on above: Performed By: #### 2 776189, 2243901, 05233588, 9473381 ####[facility] [address] [place] [address] Anion gap [Moles/Vol] 12 mmol/L Normal 6-16 [facility] Comment on above: Performed By: #### 2 182685, 3170829, 51994850, 2658122 ####[facility] [address] [place] [place] [address] Calcium [Mass/Vol] 9.1 mg/dL Normal 8.9-11.1 [facility] Comment on above: Performed By: #### 2 343657, 0875945, 83293759, 9979471 ####[facility] [address] [place] [address] Chloride [Moles/Vol] 104 mmol/L Normal 101-111 [facility] Comment on above: Performed By: #### 2 296459, 7395597, 74628360, 1325131 ####[facility] [address] [place] [address] CO2 [Moles/Vol] 23 mmol/L Normal 21-31 [facility] Comment on above: Performed By: #### 2 651665, 2513449, 01421389, 8412055 ####[facility] [address] [place] [place] [address] Glucose [Mass/Vol] 84 mg/dL Normal 55-199 [facility] Comment on above: Result Comment: If t his glucose result represents a fasting glucose, interpretation should refer to the following reference range: 55-99 mg/dL Performed By: #### 2 644990, 8650050, 09036908, [id number] ####[facility] [address] [place] [address] Potassium [Moles/Vol] 3.5 mmol/L Normal 3.5-5.3 [facility] Comment on above: Performed By: #### 2 813082, 8358251, 88324338, 8869403 ####[facility] [address] [place] [address] Sodium [Moles/Vol] 135 mmol/L Normal 135-145 [facility] Comment on above: Performed By: #### 2 475640, 2014632, 31771155, 3499320 ####[facility] [address] [place] [address] CBC w/ Auto Diffon 3 Erythrocyte distribution width (RBC) [Ratio] 12.9 % Normal 10.9-14.2 [facility] Comment on above: Performed By: #### 2 278455, 3109789, 64668078, 2833459 ####[facility] [address] [place] [address] Hematocrit (Bld) [Volume fraction] 46.4 % High 34.0-46.0 [facility] Comment on above: Performed By: #### 2 373828, 7133909, 57647796, 1019168 ####[facility] [address] [place] [address] Hemoglobin (Bld) [Mass/Vol] 15.0 g/dL Normal 12.0-16.0 [facility] Comment on above: Performed By: #### 2 472519, 0845884, 11799909, 8253717 ####[facility] [address] [place] [address] MCH (RBC) [Entitic mass] 28.6 pg Normal 27.0-34.0 [facility] Comment on above: Performed By: #### 2 983522, 7199312, 40876836, 1748409 ####[place] 4[address]157 MCHC (RBC) [Mass/Vol] 32.3 g/dL Normal 31.4-36.0 [facility] Comment on above: Performed By: #### 2 607730, 5816125, 59694709, 6248494 ####[place] 4202157 MCV (RBC) [Entitic vol] 88.5 fL Normal 80.0-100.0 [facility] Comment on above: Performed By: #### 2 665698, 3088797, 17849431, 3707721 ####[place] [address] Platelet mean volume (Bld) [Entitic vol] 7.9 fL Normal 6.4-10.8 [facility] Comment on above: Performed By: #### 2 247887, 6915830, 11178136, 0549289 ####[address] [address] Platelets (Bld) [#/Vol] 300.0 E9/L Normal 150.0-500.0 [facility] Comment on above: Performed By: #### 2 272864, 3537412, 37278715, 8327384 ####[address] [address] RBC (Bld) [#/Vol] 5.2 E12/L Normal 4.3-5.9 [facility] Comment on above: Performed By: #### 2 855995, 8547523, 69710014, 0188962 ####[address] [address] WBC corrected for nucl RBC Auto (Bld) [#/Vol] 5.1 E9/L Normal 4.0-11.0 [facility] Comment on above: Performed By: #### 2 204006, 1897662, 72476165, 5016740 ####[facility] [address] [place] [id number] CHEMISTRYOrdered By: [employer] SYSTEM on 01-31-2023 Anion gap [Moles/Vol] 12 [...] rate/Area] mL/min/1.73 m2 Normal >=59mL/min/ 1.[address] [facility] Chem S GFR/1.73 sq M.predicted among non-blacks MDRD (S/P/Bld) [Vol rate/Area] mL/min/1.73 m2 Normal >=59mL/min/ 1.[address] [facility] Chem S Glucose [...] Coag CTA Headon 01-31-2023 CTA Head Normal [facility] Consent for Treatmenton 01-13 Consent for Treatment [id number]#1.00CD:12 7 Normal [facility] Discharge Instructionson Discharge Instructions [id number]#1.00CD:1 27 Normal [facility] ED Clinical Summaryon 2022 ED Clinical Summary Normal [facility] ED Note-Physicianon 02-01-20 ED Note-Physician Normal [facility] Comment on above: Result Comment: Elec tronically Signed By: Kristian Guillermo DO.br\Date and Time Signed: 01/31/23 14:00 EDT ED Patient Education Noteon 01-31-2023 ED Patient Education Note Normal [facility] ED Patient Summaryon 023 ED Patient Summary Normal [facility] HEMATOLOGYOrdered By: SYSTEM SYSTEM on 01-31-2023 [...] Coag (PPP) [Time] 31.3 second(s) Normal 25.1-36.5 [facility] Comment on above: Result Comment: Para meter 15 days - 4 weeks 1 - 5 months 6 - 11 months 1 - 5 years 6 - 10 years 11 - 17 years PTT Mean: 35.4 (27.6-45.6) Mean: 33.5 (24.8-40.7) Mean: 32.4 (25.1-40.7) Mean: 31.6 (24.0-39.2) Mean: 31.6 (26.9-38.7) Mean: 31.0 (24.6-38.4) Pediatric Reference ranges were obtained from a study by ivet Garcias prepared from 1437 samples obtained at 7 different centers using the same coagulation reagent and instrumentation as [facility]. Currently there are no coagulation studies available worldwide for children to 14 days, and no normal ranges. Heparin therapeutic range (represented by Anti-Factor Xa activity of 0.2 - 0.4 U/mL) corresponds to PTT of 56.6 - 109.0 sec. Performed By: #### 2 [id number], 71337074 ####[facility] [address] [place] [address] INR Coag (PPP) [Relative time] 1.1 {INR} Invalid Interpretation Code [facility] Comment on above: Result Comment: INR results are specifically intended to assess patients stabilized on long-term Anticoagulation therapy suggested INR?s ?Less Intensive Anticoagulation? 2.0 ? 3.0Conventional Range 3.0 ? 4.5 Performed By: #### 2 7861246, 44115586 ####[facility] [address] [place] [address] PT Coag (PPP) [Time] 12.3 second(s) Normal 9.4-12.5 [facility] Comment on above: Result Comment: 15 [...] ranges were obtained from a study by ivet Garcias prepared from 1437 samples obtained at 7 different centers using the same coagulation reagent and instrumentation as [facility]. Currently there are no coagulation studies available worldwide for children to 14 days, and no normal ranges. Performed By: #### 2 5672627, 69445576 ####[facility] [address] [place] [address] Pre-Arrival Noteon 3 Pre-Arrival Note Normal [facility] SEROLOGYOrdered By: Nova Mccarty on 01-31-2023 Beta hCG Ql Negative (01/31/23 10:14 AM) Normal [facility] Man Sero eGFRon 01-31-2023 GFR/1.73 sq M.predicted among blacks MDRD (S/P/Bld) [Vol rate/Area] mL/min/{1.73_m2} Normal >=59 [facility] Comment on above: Order Comment: Order added by Discern Expert. Result Comment: eGFR is race adjusted. AA=. Performed By: #### 2 131879, 5685321, 61364183, 8308290 ####[facility] [address] [place] [address] GFR/1.73 sq M.predicted among non-blacks MDRD (S/P/Bld) [Vol rate/Area] mL/min/{1.73_m2} Normal >=59 [facility] Comment on above: Order Comment: Order added by Discern Expert. Result Comment: [employer] Analyst lucy kidney disease could be indicated at eGFR's of less than 60 mL/min/1.73m2. Kidney failure is indicated at less than 15 mL/min/1.73m2. Performed By: #### 2 749888, 8260465, 31459017, 3845220 ####[facility] [address] [place] [address] Nursing Assessmenton 023 Nursing Assessment [id number]#1.00CD:1 27 Normal [facility] Coding Summary.on 10-02-2022 Coding Summary. Normal [facility] Coding Summary. Normal [facility] Delivery Summaryon 2 Delivery Summary Normal [facility] Comment on above: Result Comment: Elec tronically Signed By: Fabiana MARION, Luis Carols Pope.br\Date and Time Signed: 09/29/22 09:25 EST General Message Officeon General Message Office Normal [facility] Insurance Correspondence Off iceon 09-28-2022 Insurance Correspondence Office [id number]#1.00CD:1 27 Normal [facility] Discharge Instructionson Discharge Instructions [id number]#1.00CD:12 7 Normal [facility] Inpatient Clinical Summaryon 09-27-2022 Inpatient Clinical Summary Normal [facility] Inpatient Patient Summaryon 09-27-2022 Inpatient Patient Summary Normal [facility] CBC w/Indiceson 09-26-2022 Erythrocyte distribution width (RBC) [Ratio] 13.1 % Normal 10.9-14.2 [facility] Comment on above: Performed By: #### 2 534247 ####[facility] [address] [place] [address] Hematocrit (Bld) [Volume fraction] 32.1 % Low 34.0-46.0 [facility] Comment on above: Performed By: #### 2 926584 ####[facility] [address] [place] [address] Hemoglobin (Bld) [Mass/Vol] 11.1 g/dL Low 12.0-16.0 [facility] Comment on above: Performed By: #### 2 911150 ####[facility] [address] [place] [address] MCH (RBC) [Entitic mass] 30.9 pg Normal 27.0-34.0 [facility] Comment on above: Performed By: #### 2 581677 ####[facility] [address] [place] [address] MCHC (RBC) [Mass/Vol] 34.5 g/dL Normal 31.4-36.0 [facility] Comment on above: Performed By: #### 2 606379 ####[facility] [address] [place] [address] MCV (RBC) [Entitic vol] 89.7 fL Normal 80.0-100.0 [facility] Comment on above: Performed By: #### 2 587504 ####[address] [address] Platelet mean volume (Bld) [Entitic vol] 10.1 fL Normal 6.4-10.8 [facility] Comment on above: Performed By: #### 2 881525 ####[address] [address] Platelets (Bld) [#/Vol] 204.0 E9/L Normal 150.0-500.0 [facility] Comment on above: Performed By: #### 2 268469 ####[address] [address] RBC (Bld) [#/Vol] 3.6 E12/L Low 4.3-5.9 [facility] Comment on above: Performed By: #### 2 937145 ####[address] [address] WBC corrected for nucl RBC Auto (Bld) [#/Vol] 23.2 E9/L High 4.0-11.0 [facility] Comment on above: Performed By: #### 2 619663 ####[address] [address] Nursing Assessmenton 022 Nursing Assessment [id number]#1.00CD:12 7 Normal [facility] Progress Note-Physicianon Progress Note-Physician Normal [facility] Comment on above: Result Comment: Elec tronically Signed By: Fabiana MARION, Luis Carlos Pope.medina\Date and Time Signed: 09/26/22 08:19 EST Coding Summary.on 09-25-2022 Coding Summary. Normal [facility] Coding Summary. Normal [facility] Consenton 09-25-2022 Consent [id number]#1.00CD:1 27 Normal [facility] Consent for Anesthesiaon Consent for Anesthesia [id number]#1.00CD:12 7 [facility] Discharge Instructionson Discharge Instructions [id number]#1.00CD:1 27 [facility] Help Me Grow Referralon 09-14 Help Me Grow Referral [id number]#1.00CD:12 7 [facility] Recordson Records [id number]#1.00CD:12 7 [facility] Progress Note-Physicianon Progress Note-Physician [facility] Comment on above: Result Comment: Elec tronically Signed By: Jimmy Corcoran Jr., DO\.br\Date and Time Signed: 09/25/22 08:31 EST Progress Note-Physician [facility] Comment on above: Result Comment: Elec tronically Signed By: Jimmy Corcoran Jr., DO\.br\Date and Time Signed: 09/25/22 08:31 EST UA With Cult Reflexon 2021 Bilirubin Ql (U) Negative Normal Negative [facility] Comment on above: Order Comment: Urina ry Catheter Insertion triggered Urinalysis With Culture Reflex order by discern. Performed By: #### 1 7879780 ####[facility] [address] [place] [address] Clarity (U) CLEAR Normal Clear [facility] Comment on above: Order Comment: Urina ry Catheter Insertion triggered Urinalysis With Culture Reflex order by discern. Performed By: #### 1 7841920 ####[facility] [address] [place] [address] Color (U) YELLOW Normal Yellow [facility] Comment on above: Order Comment: Urina ry Catheter Insertion triggered Urinalysis With Culture Reflex order by discern. Performed By: #### 1 7873016 ####[facility] [address] [place] [address] Epithelial cells.squamous LM.HPF (Urine sed) [#/Area] 0-2 Normal 0-2 [facility] Comment on above: Order Comment: Urina ry Catheter Insertion triggered Urinalysis With Culture Reflex order by discern. Performed By: #### 1 3085205 ####[address] [address] Glucose Test strip (U) [Mass/Vol] Negative Normal Negative [facility] Comment on above: Order Comment: Urina ry Catheter Insertion triggered Urinalysis With Culture Reflex order by discern. Performed By: #### 1 2512716 ####[address] [address] Hemoglobin Ql (U) Negative Normal Negative [facility] Comment on above: Order Comment: Urina ry Catheter Insertion triggered Urinalysis With Culture Reflex order by discern. Performed By: #### 1 8638564 ####[address] [address] Ketones (U) [Mass/Vol] Negative Normal Negative [facility] Comment on above: Order Comment: Urina ry Catheter Insertion triggered Urinalysis With Culture Reflex order by discern. Performed By: #### 1 4250548 ####[facility] [address] [place] [address] Valentine.plasma/Valentine .RBC (Bld) [Mass ratio] 0-3 Normal 0-3 [facility] Comment on above: Order Comment: Urina ry Catheter Insertion triggered Urinalysis With Culture Reflex order by discern. Performed By: #### 1 4153751 ####[facility] [address] [place] [address] Nitrite Ql (U) Negative Normal Negative [facility] Comment on above: Order Comment: Urina ry Catheter Insertion triggered Urinalysis With Culture Reflex order by discern. Performed By: #### 1 3259434 ####[address] [address] pH (U) 7.0 [pH] Invalid Interpretation Code 5.0-9.0 [facility] Comment on above: Order Comment: Urina ry Catheter Insertion triggered Urinalysis With Culture Reflex order by discern. Performed By: #### 1 6036489 ####[address] [address] Protein (U) [Mass/Vol] Negative Normal Negative [facility] Comment on above: Order Comment: Urina ry Catheter Insertion triggered Urinalysis With Culture Reflex order by discern. Performed By: #### 1 3778466 ####[place] [address] Specific gravity (U) [Rel density] <=1.005 Invalid Interpretation Code 1.005-1.030 [facility] Comment on above: Order Comment: Urina ry Catheter Insertion triggered Urinalysis With Culture Reflex order by discern. Performed By: #### 1 7405872 ####[place] [address] Type of Urine collection method Vyas Normal [facility] Comment on above: Order Comment: Urina ry Catheter Insertion triggered Urinalysis With Culture Reflex order by discern. Performed By: #### 1 4330071 ####[place] 4202157 Urobilinogen Qn (U) 0.2 {Rola'U}/dL Normal 0.0-1.0 [facility] Comment on above: Order Comment: Urina ry Catheter Insertion triggered Urinalysis With Culture Reflex order by discern. Performed By: #### 1 9223604 ####[address] [address] WBC Auto Ql (U) Negative Normal Negative [facility] Comment on above: Order Comment: Urina ry Catheter Insertion triggered Urinalysis With Culture Reflex order by discern. Performed By: #### 1 5146700 ####[address] [address] WBC LM.HPF (Urine sed) [#/Area] 0-5 Normal 0-5 [facility] Comment on above: Order Comment: Urina ry Catheter Insertion triggered Urinalysis With Culture Reflex order by discern. Performed By: #### 1 9216569 ####[facility] [address] [place] [address] Bilirubin Ql (U) Negative Normal Negative [facility] Comment on above: Performed By: #### 1 7918070 ####[address] [address] Clarity (U) CLEAR Normal Clear [facility] Comment on above: Performed By: #### 1 8908047 ####[address] [address] Color (U) YELLOW Normal Yellow [facility] Comment on above: Performed By: #### 1 2982510 ####[address] [address] Epithelial cells.squamous LM.HPF (Urine sed) [#/Area] 0-2 Normal 0-2 [facility] Comment on above: Performed By: #### 1 4381669 ####[address] [address] Glucose Test strip (U) [Mass/Vol] Negative Normal Negative [facility] Comment on above: Performed By: #### 1 1043287 ####[address] [address] Hemoglobin Ql (U) Negative Normal Negative [facility] Comment on above: Performed By: #### 1 7912250 ####[address] [address] Ketones (U) [Mass/Vol] Negative Normal Negative [facility] Comment on above: Performed By: #### 1 1402175 ####[address] [address] Valentine.plasma/Valentine .RBC (Bld) [Mass ratio] 0-3 Normal 0-3 [facility] Comment on above: Performed By: #### 1 6017565 ####[address] [address] Nitrite Ql (U) Negative Normal Negative [facility] Comment on above: Performed By: #### 1 9191487 ####[place] [address]12[address] [place] [address] pH (U) 6.0 [pH] Invalid Interpretation Code 5.0-9.0 [facility] Comment on above: Performed By: #### 1 9612566 ####[address] [address] Protein (U) [Mass/Vol] Negative Normal Negative [facility] Comment on above: Performed By: #### 1 0033752 ####[address] [address] Specific gravity (U) [Rel density] <=1.005 Invalid Interpretation Code 1.005-1.030 [facility] Comment on above: Performed By: #### 1 5169108 ####[address] [address] Type of Urine collection method Clean Catch Normal [facility] Comment on above: Performed By: #### 1 2877886 ####[address] [address] Urobilinogen Qn (U) 0.2 {Rola'U}/dL Normal 0.0-1.0 [facility] Comment on above: Performed By: #### 1 9303555 ####[address] [address] WBC Auto Ql (U) Negative Normal Negative [facility] Comment on above: Performed By: #### 1 4467009 ####[address] [address] WBC LM.HPF (Urine sed) [#/Area] 0-5 Normal 0-5 [facility] Comment on above: Performed By: #### 1 2615298 ####[address] [address] Vaccinationson 09-25-2022 Vaccinations [id number]#1.00CD:1 27 Normal [facility] Vaccinations [id number]#1.00CD:1 27 Normal [facility] ABO/Rhon 09-24-2022 ABO/Rh Positive Invalid Interpretation Code [facility] Comment on above: Performed By: #### 1 5413155, 13014655, 10565364, 7049652 ####[facility] [address] [place] [address] ABO/Rh History Checkon 09-24 ABO/Rh History Check Verified Hx Blood Type Normal [facility] Comment on above: Performed By: #### 1 2334022, 44014890, 10820177, 2359243 ####[facility] [address] [place] [address] ABSCon 09-24-2022 ABSC Gel Interp Negative Normal [facility] Comment on above: Performed By: #### 1 2965678, 45630688, 95266408, 6595008 ####[facility] [address] [place] [address] Blood Bank ID#on 09-24-2022 BBID# [id number] Invalid Interpretation Code [facility] Comment on above: Performed By: #### 1 4557757, 65314453, 83910198, 7893679 ####[facility] [address] [place] [address] CBC w/Indiceson 09-24-2022 Erythrocyte distribution width (RBC) [Ratio] 13.0 % Normal 10.9-14.2 [facility] Comment on above: Performed By: #### 2 113205 ####[facility] [address] [place] [address] Hematocrit (Bld) [Volume fraction] 38.0 % Normal 34.0-46.0 [facility] Comment on above: Performed By: #### 2 525686 ####[facility] [address] [place] [address] Hemoglobin (Bld) [Mass/Vol] 12.8 g/dL Normal 12.0-16.0 [facility] Comment on above: Performed By: #### 2 109748 ####[address] [address] MCH (RBC) [Entitic mass] 31.3 pg Normal 27.0-34.0 [facility] Comment on above: Performed By: #### 2 333697 ####[address] [address] MCHC (RBC) [Mass/Vol] 33.7 g/dL Normal 31.4-36.0 [facility] Comment on above: Performed By: #### 2 062136 ####[address] [address] MCV (RBC) [Entitic vol] 92.9 fL Normal 80.0-100.0 [facility] Comment on above: Performed By: #### 2 542703 ####[place] 4202157 Platelet mean volume (Bld) [Entitic vol] 9.8 fL Normal 6.4-10.8 [facility] Comment on above: Performed By: #### 2 188823 ####[address] [address] Platelets (Bld) [#/Vol] 238.0 E9/L Normal 150.0-500.0 [facility] Comment on above: Performed By: #### 2 014839 ####[address] [address] RBC (Bld) [#/Vol] 4.1 E12/L Low 4.3-5.9 [facility] Comment on above: Performed By: #### 2 283227 ####[address] [address] WBC corrected for nucl RBC Auto (Bld) [#/Vol] 12.8 E9/L High 4.0-11.0 [facility] Comment on above: Performed By: #### 2 105975 ####[facility] [place] [address] Consent for Treatmenton 09-14 Consent for Treatment [id number]#1.00CD:12 7 [facility] Consent for Treatment [id number]#1.00CD:1 27 [facility] Consent for Treatmenton Consent for Treatment [id number]#1.00CD:12 7 [facility] Discharge Instructionson Discharge Instructions [id number]#1.00CD:12 7 [facility] Inpatient Clinical Summaryon 09-22-2022 Inpatient Clinical Summary Normal [facility] Inpatient Patient Summaryon 09-22-2022 Inpatient Patient Summary [facility] Insurance Correspondence Off ice09-22-2022 Insurance Correspondence Office [id number]#1.00CD: 127 [facility] Nursing Assessmenton 022 Nursing Assessment [id number]#1.00CD:1 27 [facility] Nursing Assessment [id number]#1.00CD:12 7 [facility] Discharge Instructionson Discharge Instructions [id number]#1.00CD:127 [facility] Inpatient Clinical Summaryon 09-20-2022 Inpatient Clinical Summary [facility] Inpatient Patient Summaryon 09-20-2022 Inpatient Patient Summary [facility] Insurance Correspondence Off ice09-20-2022 Insurance Correspondence Office [id number]#1.00CD:127 [facility] Consent for Treatmenton Consent for Treatment [id number]#1.00CD:12 7 Normal [facility] Discharge Instructionson Discharge Instructions [id number]#1.00CD:1 27 Normal [facility] Inpatient Clinical Summaryon 09-19-2022 Inpatient Clinical Summary Normal [facility] Inpatient Patient Summaryon 09-19-2022 Inpatient Patient Summary Normal [facility] Insurance Correspondenceon 1 11-20-2021 Insurance Correspondence [id number]#1.00CD:1 27 Normal [facility] UA With Cult Reflexon 2021 Bilirubin Ql (U) Negative Normal Negative [facility] Comment on above: Performed By: #### 1 1131631 ####[facility] [address] [place] [address] Clarity (U) CLEAR Normal Clear [facility] Comment on above: Performed By: #### 1 6146057 ####[facility] [address] [place] [address] Color (U) YELLOW Normal Yellow [facility] Comment on above: Performed By: #### 1 6167845 ####[facility] [address] [place] [address] Epithelial cells.squamous LM.HPF (Urine sed) [#/Area] 0-2 Normal 0-2 [facility] Comment on above: Performed By: #### 1 [id number] ####[facility] [address] [place] [address] Glucose Test strip (U) [Mass/Vol] Negative Normal Negative [facility] Comment on above: Performed By: #### 1 [id number] ####[facility] [address] [place] [address] Hemoglobin Ql (U) Negative Normal Negative [facility] Comment on above: Performed By: #### 1 0666680 ####[facility] [address] [place] [address] Ketones (U) [Mass/Vol] Negative Normal Negative [facility] Comment on above: Performed By: #### 1 1539046 ####[address] [address] Valentine.plasma/Valentine .RBC (Bld) [Mass ratio] 0-3 Normal 0-3 [facility] Comment on above: Performed By: #### 1 8931236 ####[address] [address] Nitrite Ql (U) Negative Normal Negative [facility] Comment on above: Performed By: #### 1 3216597 ####[address] [address] pH (U) 7.0 [pH] Invalid Interpretation Code 5.0-9.0 [facility] Comment on above: Performed By: #### 1 8336398 ####[address] [address] Protein (U) [Mass/Vol] Negative Normal Negative [facility] Comment on above: Performed By: #### 1 6780536 ####[address] [address] Specific gravity (U) [Rel density] <=1.005 Invalid Interpretation Code 1.005-1.030 [facility] Comment on above: Performed By: #### 1 0236627 ####[address] [address] Type of Urine collection method Clean Catch Normal [facility] Comment on above: Performed By: #### 1 0106973 ####[address] [address] Urobilinogen Qn (U) 0.2 {Rola'U}/dL Normal 0.0-1.0 [facility] Comment on above: Performed By: #### 1 0884633 ####[address] [address] WBC Auto Ql (U) Negative Normal Negative [facility] Comment on above: Performed By: #### 1 9671318 ####[facility] [address] [place] [address] WBC LM.HPF (Urine sed) [#/Area] 0-5 Normal 0-5 [facility] Comment on above: Performed By: #### 1 0444404 ####[facility] [address] [place] [address] URINALYSISOrdered By: Jeanette Castle on 09-19-2022 Bilirubin [...] AM) Normal Negative [facility] UA Auto SS Valentine.plasma/Valentine .RBC (Bld) [Mass ratio] 0-3 /HPF Normal [...] [facility] UA Auto SS Urobilinogen Qn (U) 0.5035332 {Rola'U}/dL Normal 0.0 - 1.0 EU/dL [facility] UA Auto SS WBC Auto Ql (U) Negative (09/19/22 1:44 AM) Normal Negative [facility] UA Auto SS WBC LM.HPF (Urine sed) [#/Area] 0-5 /HPF Normal 0-5/HPF [facility] UA Auto SS Coding Summary.on 09-18-2022 Coding Summary. Normal [facility] Nursing Assessmenton Nursing Assessment [id number]#1.00CD:12 7 Normal [facility] Coding Summary.on 09-15-2022 Coding Summary. Normal [facility] Coding Summary.on 09-14-2022 Coding Summary. Normal [facility] Consent for Treatmenton Consent for Treatment [id number]#1.00CD:12 7 [facility] Consent for Treatment [id number]#1.00CD:12 7 Normal [facility] Discharge Instructionson Discharge Instructions [id number]#1.00CD:12 7 Normal [facility] Inpatient Clinical Summaryon 09-14-2022 Inpatient Clinical Summary Normal [facility] Inpatient Patient Summaryon 09-14-2022 Inpatient Patient Summary Normal [facility] Insurance Correspondence Off iceon 09-14-2022 Insurance Correspondence Office [id number]#1.00CD:12 7 Normal [facility] Nursing Assessmenton Nursing Assessment [id number]#1.00CD:1 27 Normal [facility] UA With Cult Reflexon 2021 Bacteria LM Ql (Urine sed) TRACE Normal Trace [facility] Comment on above: Performed By: #### 1 [id number] ####[facility] [address] [place] [address] Bilirubin Ql (U) Negative Normal Negative [facility] Comment on above: Performed By: #### 1 3725362 ####[facility] [address] [place] [address] Clarity (U) CLEAR Normal Clear [facility] Comment on above: Performed By: #### 1 9805141 ####[address] [address] Color (U) YELLOW Normal Yellow [facility] Comment on above: Performed By: #### 1 2088329 ####[facility] [address] [place] [address] Crystals LM Ql (Urine sed) Present Normal [facility] Comment on above: Performed By: #### 1 9540027 ####[address] [address] Epithelial cells.squamous LM.HPF (Urine sed) [#/Area] 0-2 Normal 0-2 [facility] Comment on above: Performed By: #### 1 8438731 ####[facility] [address] [place] [address] Glucose Test strip (U) [Mass/Vol] Negative Normal Negative [facility] Comment on above: Performed By: #### 1 7971451 ####[address] [address] Hemoglobin Ql (U) Negative Normal Negative [facility] Comment on above: Performed By: #### 1 5684791 ####[facility] [address] [place] [address] Ketones (U) [Mass/Vol] Negative Normal Negative [facility] Comment on above: Performed By: #### 1 8891304 ####[address] [address] Valentine.plasma/Valentine .RBC (Bld) [Mass ratio] 0-3 Normal 0-3 [facility] Comment on above: Performed By: #### 1 0017826 ####[facility] [address] [place] [address] Mucus Ql (Urine sed) TRACE Normal [facility] Comment on above: Performed By: #### 1 2617767 ####[facility] [address] [place] [address] Nitrite Ql (U) Negative Normal Negative [facility] Comment on above: Performed By: #### 1 7606714 ####[address] [address] pH (U) 6.0 [pH] Invalid Interpretation Code 5.0-9.0 [facility] Comment on above: Performed By: #### 1 9985615 ####[address] [address] Protein (U) [Mass/Vol] Negative Normal Negative [facility] Comment on above: Performed By: #### 1 3331446 ####[address] [address] Specific gravity (U) [Rel density] <=1.005 Invalid Interpretation Code 1.005-1.030 [facility] Comment on above: Performed By: #### 1 0146393 ####[facility] [address] [place] [address] Type of Urine collection method Random Urine Normal [facility] Comment on above: Performed By: #### 1 3472728 ####[address] [address] Urobilinogen Qn (U) 0.2 {Rola'U}/dL Normal 0.0-1.0 [facility] Comment on above: Performed By: #### 1 6275883 ####[facility] [address] [place] [address] WBC Auto Ql (U) TRACE Abnormal Negative [facility] Comment on above: Performed By: #### 1 7057488 ####[facility] [address] [place] [address] WBC LM.HPF (Urine sed) [#/Area] 0-5 Normal 0-5 [facility] Comment on above: Performed By: #### 1 7043188 ####[facility] [address] [place] [address] URINALYSISOrdered By: An Lassiter on 09-14-2022 Bacteria [...] AM) Normal Negative [facility] UA Auto SS Valentine.plasma/Valentine .RBC (Bld) [Mass ratio] 0-3 /HPF Normal [...] [facility] UA Auto SS Urobilinogen Qn (U) 0.6184444 {Rola'U}/dL Normal 0.0 - 1.0 EU/dL [facility] UA Auto SS WBC Auto Ql (U) Trace *ABN* (09/14/22 9:25 AM) Invalid Interpretation Code Negative [facility] UA Auto SS WBC LM.HPF (Urine sed) [#/Area] 0-5 /HPF Normal 0-5/HPF [facility] UA Auto SS Coding Summary.on 09-12-2022 Coding Summary. Normal [facility] Consent for Treatmenton 08-16 Consent for Treatment [id number]#1.00CD:12 7 Normal [facility] Discharge Instructionson Discharge Instructions [id number]#1.00CD:12 7 [facility] Discharge Instructions [id number]#1.00CD:1 27 Normal [facility] Inpatient Clinical Summaryon 09-12-2022 Inpatient Clinical Summary Normal [facility] Inpatient Patient Summaryon 09-12-2022 Inpatient Patient Summary Normal [facility] Insurance Correspondenceon 11-12-2021 Insurance Correspondence [id number]#1.00CD:12 7 [facility] Insurance Correspondence Off iceon 09-12-2022 Insurance Correspondence Office [id number]#1.00CD:1 27 Normal [facility] Nursing Assessmenton 022 Nursing Assessment [id number]#1.00CD:1 27 Normal [facility] UA With Cult Reflexon 2021 Bilirubin Ql (U) Negative Normal Negative [facility] Comment on above: Performed By: #### 1 5761126 ####[facility] [address] [place] [address] Clarity (U) CLEAR Normal Clear [facility] Comment on above: Performed By: #### 1 2795565 ####[facility] [address] [place] [address] Color (U) YELLOW Normal Yellow [facility] Comment on above: Performed By: #### 1 5134458 ####[address] [address] Crystals LM Ql (Urine sed) Present Normal [facility] Comment on above: Performed By: #### 1 8940619 ####[address] [address] Epithelial cells.squamous LM.HPF (Urine sed) [#/Area] 3-4 Normal 0-2 [facility] Comment on above: Performed By: #### 1 7341653 ####[address] [address] Glucose Test strip (U) [Mass/Vol] Negative Normal Negative [facility] Comment on above: Performed By: #### 1 9951337 ####[address] [address] Hemoglobin Ql (U) Negative Normal Negative [facility] Comment on above: Performed By: #### 1 5699154 ####[address] [address] Ketones (U) [Mass/Vol] Negative Normal Negative [facility] Comment on above: Performed By: #### 1 6132038 ####[address] [address] Valentine.plasma/Valentine .RBC (Bld) [Mass ratio] 0-3 Normal 0-3 [facility] Comment on above: Performed By: #### 1 4068164 ####[address] [address] Nitrite Ql (U) Negative Normal Negative [facility] Comment on above: Performed By: #### 1 7268733 ####[address] [address] pH (U) 6.0 [pH] Invalid Interpretation Code 5.0-9.0 [facility] Comment on above: Performed By: #### 1 4135878 ####[facility] [address] [place] [address] Protein (U) [Mass/Vol] Negative Normal Negative [facility] Comment on above: Performed By: #### 1 3482069 ####[facility] [address] [place] [address] Specific gravity (U) [Rel density] 1.010 Invalid Interpretation Code 1.005-1.030 [facility] Comment on above: Performed By: #### 1 9180117 ####[place] [address] Type of Urine collection method Clean Catch Normal [facility] Comment on above: Performed By: #### 1 5853613 ####[place] [address] Urobilinogen Qn (U) 0.2 {Rola'U}/dL Normal 0.0-1.0 [facility] Comment on above: Performed By: #### 1 8085151 ####[facility] [address] [place] [address] WBC Auto Ql (U) Negative Normal Negative [facility] Comment on above: Performed By: #### 1 1539269 ####[facility] [address] [place] [address] WBC LM.HPF (Urine sed) [#/Area] 0-5 Normal 0-5 [facility] Comment on above: Performed By: #### 1 6198162 ####[place] [address]157 URINALYSISOrdered By: Jose Miguel nelson on 09-12-2022 [...] PM) Normal Negative [facility] UA Auto SS Ketones (U) [Mass/Vol] Negative (09/12/22 8:15 PM) Normal Negative [facility] UA Auto SS Valentine.plasma/Valentine .RBC (Bld) [Mass ratio] 0-3 /HPF Normal 0-3/HPF [facility] UA Auto SS Nitrite Ql (U) Negative (09/12/22 8:15 PM) Normal Negative [facility] UA Auto SS pH (U) 6.0 *NA* (09/12/22 8:15 PM) Invalid Interpretation Code 5.0 - 9.0 [facility] UA Auto SS Protein (U) [Mass/Vol] Negative (09/12/22 8:15 PM) Normal Negative [facility] UA Auto SS Specific gravity (U) [Rel density] 1.010 *NA* (09/12/22 8:15 PM) Invalid Interpretation Code 1.005 - 1.030 [facility] UA Auto SS UA Spec Desc Clean Catch (09/12/22 8:15 PM) Normal [facility] UA Auto SS Urobilinogen Qn (U) 0.5073286 {Rola'U}/dL Normal 0.0 - 1.0 EU/dL [facility] UA Auto SS WBC Auto Ql (U) Negative (09/12/22 8:15 PM) Normal Negative [facility] UA Auto SS WBC LM.HPF (Urine sed) [#/Area] 0-5 /HPF Normal 0-5/HPF [facility] UA Auto SS Coding Summary.on 09-11-2022 Coding Summary. [facility] Consent for Treatmenton 08-16 Consent for Treatment [id number]#1.00CD:12 7 [facility] Discharge Instructionson Discharge Instructions [id number]#1.00CD:1 27 Normal [facility] Inpatient Clinical Summaryon 09-08-2022 Inpatient Clinical Summary Normal [facility] Inpatient Patient Summaryon 09-08-2022 Inpatient Patient Summary Normal [facility] Coding Summary.on 09-06-2022 Coding Summary. Normal [facility] Discharge Instructionson Discharge Instructions [id number]#1.00CD:1 27 Normal [facility] ED Clinical Summaryon 2021 ED Clinical Summary Normal [facility] ED Note-Nursingon 09-06-2022 ED Note-Nursing pt given d/c instruc tions and educated on importance of follow up. pt educated on new medications. pt verbalized understanding of instructions and readiness for d/c. pt walked self ambulatory to waiting room in stable condition Normal [facility] ED Patient Education Noteon 09-06-2022 ED Patient Education Note Normal [facility] ED Patient Summaryon 022 ED Patient Summary Normal [facility] XR Chest Single Viewon 09-06 XR Chest Single View Normal [facility] Auto Diffon 09-05-2022 Basophils/100 WBC (Bld) 1.0 % Normal 0.0-2.0 [facility] Comment on above: Order Comment: Order Added by Discern Expert. Performed By: #### 2 508704, 25048835, 71542133, 4688023, 30689374, 63673950, 7478525 ####[facility] [address] [place] [address] Basophils/Leukocytes Auto (Bld) [Pure # fraction] 0.1 E9/L Normal 0.0-0.2 [facility] Comment on above: Order Comment: Order Added by Discern Expert. Performed By: #### 2 691113, 25835799, 49698271, 5673246, 54187955, 57216714, 8520163 ####[facility] [address] [place] [address] Eosinophils/100 WBC (Bld) 1.4 % Normal 0.0-8.0 [facility] Comment on above: Order Comment: Order Added by Discern Expert. Performed By: #### 2 858429, 32402324, 75071032, 9802784, 96038661, 66657124, 9639623 ####[place] [address] [place] [address] Eosinophils/Leukocytes Auto (Bld) [Pure # fraction] 0.2 E9/L Normal 0.0-0.5 [facility] Comment on above: Order Comment: Order Added by Discern Expert. Performed By: #### 2 845192, 18426779, 68189512, 0146231, 99582498, 30979931, 6482366 ####[place] [address] [place] [address] Lymphocytes/100 WBC (Bld) 18.8 % Normal 14.0-50.0 [facility] Comment on above: Order Comment: Order Added by Gisselle Expert. Performed By: #### 2 942640, 43606408, 75783602, 4385582, 67293968, 08237623, 0488364 ####[address] [address] Lymphocytes/Leukocytes Auto (Bld) [Pure # fraction] 2.0 E9/L Normal 1.0-4.0 [facility] Comment on above: Order Comment: Order Added by Gisselle Expert. Performed By: #### 2 548621, 91165693, 37349448, 5108895, 62516118, 48004786, 6022613 ####[place] [address] [place] [address] Monocytes/100 WBC (Bld) 6.8 % Normal 4.0-14.0 [facility] Comment on above: Order Comment: Order Added by Discern Expert. Performed By: #### 2 178798, 31797928, 01676367, 2223778, 06210507, 49047129, 4198523 ####[place] [address] [place] [address] Monocytes/Leukocytes Auto (Bld) [Pure # fraction] 0.7 E9/L Normal 0.2-1.0 [facility] Comment on above: Order Comment: Order Added by Discern Expert. Performed By: #### 2 350343, 17202555, 06125343, 2863546, 10520537, 87994001, 1074044 ####[facility] [address] [place] [address] Neutrophils/100 WBC (Bld) 72.0 % Normal 36.0-75.0 [facility] Comment on above: Order Comment: Order Added by Discern Expert. Performed By: #### 2 850564, 37365012, 84164015, 6556318, 36070928, 79509306, 9865797 ####[facility] [address] [place] [address] Neutrophils/Leukocytes Auto (Bld) [Pure # fraction] 7.8 E9/L High 2.0-7.5 [facility] Comment on above: Order Comment: Order Added by Gisselle Expert. Performed By: #### 2 034675, 51892205, 58812021, 6888081, 42447389, 00428319, 4249906 ####[facility] [address] [place] [address] BMPon 09-05-2022 Creatinine [Mass/Vol] 0.7 mg/dL Normal 0.5-1.3 [facility] Comment on above: Performed By: #### 2 398801, 56385420, 51147809, 7002363, 94141467, 23443212, 8533727 ####[facility] [address] [place] [address] Urea nitrogen [Mass/Vol] 7 mg/dL Normal 5-21 [facility] Comment on above: Performed By: #### 2 051449, 02431493, 33604007, 7054957, 99870991, 80155998, 9326723 ####[facility] [address] [place] [address] Urea nitrogen/Creatinine [Mass ratio] 10 No Units Normal 10-20 [facility] Comment on above: Performed By: #### 2 523876, 85388436, 04599774, 4282458, 68011030, 92192481, 9851928 ####[facility] [address] [place] [address] Anion gap [Moles/Vol] 10 mmol/L Normal 6-16 [facility] Comment on above: Performed By: #### 2 380135, 53457369, 33579877, 4329030, 94060835, 98896002, 2991317 ####[facility] [address] [place] [address] Calcium [Mass/Vol] 8.8 mg/dL Low 8.9-11.1 [facility] Comment on above: Performed By: #### 2 847808, 84571841, 33408590, 2769040, 60602583, 56263340, 5187353 ####[facility] [address] [place] [address] Chloride [Moles/Vol] 102 mmol/L Normal 101-111 [facility] Comment on above: Performed By: #### 2 966514, 29806237, 41199626, 7144667, 56366735, 35332424, 8438062 ####[facility] [address] [place] [address] CO2 [Moles/Vol] 22 mmol/L Normal 21-31 [facility] Comment on above: Performed By: #### 2 382887, 26044702, 90448739, 9366191, 20332960, 11599503, 1994632 ####[facility] [address] [place] [address] Glucose [Mass/Vol] 87 mg/dL Normal 55-199 [facility] Comment on above: Result Comment: If t his glucose result represents a fasting glucose, interpretation should refer to the following reference range: 55-99 mg/dL Performed By: #### 2 497042, 47313796, 77691770, 4497421, 40158746, 73478569, 8353851 ####[facility] [address] [place] [address] Potassium [Moles/Vol] 3.3 mmol/L Low 3.5-5.3 [facility] Comment on above: Performed By: #### 2 016782, 31499565, 00708576, 2692904, 43874917, 99460901, 6932506 ####[facility] [address] [place] [address] Sodium [Moles/Vol] 131 mmol/L Low 135-145 [facility] Comment on above: Performed By: #### 2 143097, 20600250, 73766859, 0718184, 36086319, 21666994, 5700534 ####[address] [address] BNPon 09-05-2022 Int Ctr BNP Pass Normal [facility] Comment on above: Performed By: #### 2 563298, 16881585, 39950496, 7036100, 69222702, 26560079, 3610027 ####[facility] [address] [place] [address] Natriuretic peptide B (Bld) [Mass/Vol] 8 pg/mL Normal 5-80 [facility] Comment on above: Performed By: #### 2 563009, 34852308, 94352237, 2741578, 98785699, 16146000, 8857496 ####[address] [address] CBC w/ Auto Diffon Erythrocyte distribution width (RBC) [Ratio] 12.7 % Normal 10.9-14.2 [facility] Comment on above: Performed By: #### 2 744598, 35225181, 93635555, 3394886, 84409546, 45096291, 0203558 ####[facility] [address] [place] [address] Hematocrit (Bld) [Volume fraction] 34.2 % Normal 34.0-46.0 [facility] Comment on above: Performed By: #### 2 912530, 83548102, 05128802, 5341656, 45275876, 14669080, 5754051 ####[facility] [address] [place] [address] Hemoglobin (Bld) [Mass/Vol] 12.3 g/dL Normal 12.0-16.0 [facility] Comment on above: Performed By: #### 2 797388, 51898898, 19512591, 4748901, 44499460, 96037831, 9769682 ####[address] [address] MCH (RBC) [Entitic mass] 31.8 pg Normal 27.0-34.0 [facility] Comment on above: Performed By: #### 2 468498, 27256909, 76567190, 7439193, 28813513, 34336031, 3183792 ####[address] [address] MCHC (RBC) [Mass/Vol] 35.9 g/dL Normal 31.4-36.0 [facility] Comment on above: Performed By: #### 2 128202, 44051305, 78721558, 1700901, 37461841, 81284948, 9355867 ####[address] [address] MCV (RBC) [Entitic vol] 88.7 fL Normal 80.0-100.0 [facility] Comment on above: Performed By: #### 2 768323, 33225839, 96140613, 9881116, 03517071, 03007236, 8490796 ####[address] [address] Platelet mean volume (Bld) [Entitic vol] 9.8 fL Normal 6.4-10.8 [facility] Comment on above: Performed By: #### 2 488371, 72167539, 37741469, 7989512, 87551271, 40023719, 0690689 ####[facility] [address] [place] [address] Platelets (Bld) [#/Vol] 215.0 E9/L Normal 150.0-500.0 [facility] Comment on above: Performed By: #### 2 992525, 87604727, 81395304, 6592699, 01621593, 54503489, 9434055 ####[facility] [address] [place] [address] RBC (Bld) [#/Vol] 3.9 E12/L Low 4.3-5.9 [facility] Comment on above: Performed By: #### 2 342008, 90996202, 25647791, 3127888, 13501349, 70513741, 7566389 ####[facility] [address] [place] [address] WBC corrected for nucl RBC Auto (Bld) [#/Vol] 10.9 E9/L Normal 4.0-11.0 [facility] Comment on above: Result Comment: Slid e reviewed by ts. Performed By: #### 2 283907, 83363951, 53099445, 1073278, 67858209, 90244744, 5094149 ####[facility] [address] [place] [address] CHEMISTRYOrdered By: SYSTEM SYSTEM on 09-05-2022 Anion [...] rate/Area] mL/min/1.73 m2 Normal >=59mL/min/ 1.[address] [facility] Chem S GFR/1.73 sq M.predicted among non-blacks MDRD (S/P/Bld) [Vol rate/Area] mL/min/1.73 m2 Normal >=59mL/min/ 1.[address] [facility] Chem S Glucose [Mass/Vol] 87 mg/dL Normal 55 - 199 mg/dL [facility] Remisol Potassium [Moles/Vol] 3.3 mmol/L Low 3.5 - 5.3 mmol/L [facility] Remisol Sodium [Moles/Vol] 131 mmol/L Low 135 - 145 mmol/L [facility] Remisol Troponin I.cardiac [Mass/Vol] 4.70 pg/mL Low 10.10 - 27.10 pg/mL [facility] Remisol Urea nitrogen [Mass/Vol] 7 mg/dL Normal 5 - 21 mg/dL [facility] Remisol Urea nitrogen/Creatinine [Mass ratio] 10 mg/mg Normal 10 - [address] [facility] Remisol CHEMISTRYOrdered By: Temi hayden on 09-05-2022 Natriuretic peptide B (Bld) [Mass/Vol] 8 pg/mL Normal 5 - 80 pg/mL [facility] HemeManSS COAGULATIONOrdered By: Yamile Li on 09-05-2022 aPTT Coag (PPP) [Time] 27.1 s Normal 25.1 - 36.5 second(s) [facility] Auto Coag INR Coag (PPP) [Relative time] 0.9 {INR} Invalid Interpretation Code [facility] Auto Coag PT Coag (PPP) [Time] 10.3 s Normal 9.4 - 1 2.5 second(s) [facility] Auto Coag Consent for Treatmenton 08-16 Consent for Treatment [id number]#[id number]:12 7 Normal [facility] ED Note-Nursingon 09-05-2022 ED Note-Nursing Normal [facility] ED Note-Physicianon 09-05-20 ED Note-Physician Normal [facility] Comment on above: Result Comment: Elec tronically Signed By: Gopi Rodriguez DO\Date and Time Signed: 09/05/22 21:46 EST Group B Strep by PCRon 09-05 Group B Strep colonization by PCR Negative Normal Negative [facility] Comment on above: Performed By: #### 4 [id number] ####[facility] [address] [place] [address] HEMATOLOGYOrdered By: SYSTEM SYSTEM on 09-05-2022 Basophils/100 [...] Coag (PPP) [Time] 27.1 second(s) Normal 25.1-36.5 [facility] Comment on above: Result Comment: Para meter 15 days - 4 weeks 1 - 5 months 6 - 11 months 1 - 5 years 6 - 10 years 11 - 17 years PTT Mean: 35.4 (27.6-45.6) Mean: 33.5 (24.8-40.7) Mean: 32.4 (25.1-40.7) Mean: 31.6 (24.0-39.2) Mean: 31.6 (26.9-38.7) Mean: 31.0 (24.6-38.4) Pediatric Reference ranges were obtained from a study by ivet Garcias prepared from 1437 samples obtained at 7 different centers using the same coagulation reagent and instrumentation as [facility]. Currently there are no coagulation studies available worldwide for children to 14 days, and no normal ranges. Heparin therapeutic range (represented by Anti-Factor Xa activity of 0.2 - 0.4 U/mL) corresponds to PTT of 56.6 - 109.0 sec. Performed By: #### 2 774753, 84670000, 19147475, 1462075, 32448060, 34795950, 1455924 ####[facility] [address] [place] [address] INR Coag (PPP) [Relative time] 0.9 {INR} Invalid Interpretation Code [facility] Comment on above: Result Comment: INR results are specifically intended to assess patients stabilized on long-term Anticoagulation therapy suggested INR?s ?Less Intensive Anticoagulation? 2.0 ? 3.0Conventional Range 3.0 ? 4.5 Performed By: #### 2 378974, 96150600, 08457273, 3792289, 20421536, 21111462, 3456234 ####[facility] [address] [place] [address] PT Coag (PPP) [Time] 10.3 second(s) Normal 9.4-12.5 [facility] Comment on above: Result Comment: 15 [...] ranges were obtained from a study by ivet Garcias prepared from 1437 samples obtained at 7 different centers using the same coagulation reagent and instrumentation as [facility]. Currently there are no coagulation studies available worldwide for children to 14 days, and no normal ranges. Performed By: #### 2 752604, 74944605, 27661350, 0946371, 35419975, 46625639, 8722208 ####[facility] [address] [place] [address] Rapid COVID Antigen ([facility])on 09-05-2022 Rapid COV Int NEG Ctl Pass Normal [facility] Comment on above: Performed By: #### 2 [id number] ####[facility] [address] [place] [address] Rapid COV Int POS Ctl Pass Normal [facility] Comment on above: Performed By: #### 2 [id number] ####[address] [place] [address] SARS-CoV+SARS-CoV-2 (COVID-19) Ag IA.rapid Ql (Resp) Detected Abnormal Not Detected [facility] Comment on above: Result Comment: Resu lts Called To Berna Cook, MAHESH/ER By AGNIESZKA And Read Back For Confirmation On 09/05/2022 21:14:20 ESTResults Verified By Repeat AnalysisThe Rollbase (acquired by [employer]) System for Rapid Detection of SARS-CoV-2 is [...] or revoked sooner. Performed By: #### 2 [id number] ####[place] [address] ADMITTED TO INTENSIVE CARE UNIT FOR CONDITION OF INTEREST:FIND:PT: NO Normal [facility] Comment on above: Performed By: #### 2 [id number] ####[place] [address] EMPLOYED IN A HEALTHCARE SETTING:FIND:PT: NO Normal [facility] Comment on above: Performed By: #### 2 [id number] ####[place] [address] FIRST TEST FOR CONDITION OF INTEREST:FIND:PT: YES Normal [facility] Comment on above: Performed By: #### 2 [id number] ####[place] [address] HAS SYMPTOMS RELATED TO CONDITION OF INTEREST:FIND:PT: YES Normal [facility] Comment on above: Performed By: #### 2 [id number] ####[place] [address] HOSPITALIZED FOR CONDITION OF INTEREST:FIND:PT: NO Normal [facility] Comment on above: Performed By: #### 2 [id number] ####[place] [address] STATUS:FIND:PT: NO Normal [facility] Comment on above: Performed By: #### 2 [id number] ####[facility] [address] [place] [address] RESIDES IN A [facility] CARE SETTING:FIND:PT: NO Normal [facility] Comment on above: Performed By: #### 2 [id number] ####[facility] [address] [place] [address] Troponin 0 Hr.on 09-05-2022 Troponin I.cardiac [Mass/Vol] 4.70 pg/mL Low 10.10-27.10 [facility] Comment on above: Result Comment: The 95% CI (Confidence Interval) PPV (Positive Predictive Value) for myocardial infarction in females is 38 pg/mL, in males 51 pg/mL. The results should be used in conjunction with clinical conditions of myocardial infarction.(Access High Sensitivity Troponin I Instructions For Use, [employer], May 2018) Performed By: #### 2 752350, 09099726, 68262911, 9991902, 26337733, 23479343, 5678201 ####[facility] [address] [place] [address] eGFRon 09-05-2022 GFR/1.73 sq M.predicted among blacks MDRD (S/P/Bld) [Vol rate/Area] mL/min/{1.73_m2} Normal >=59 [facility] Comment on above: Order Comment: Order added by Discern Expert. Result Comment: eGFR is race adjusted. AA=. Performed By: #### 2 091589, 93188089, 28748790, 0855209, 07928136, 09667681, 8196792 ####[facility] [address] [place] [address] GFR/1.73 sq M.predicted among non-blacks MDRD (S/P/Bld) [Vol rate/Area] mL/min/{1.73_m2} Normal >=59 [facility] Comment on above: Order Comment: Order added by Discern Expert. Result Comment: Real Estate Financial Analyst lucy kidney disease could be indicated at eGFR's of less than 60 mL/min/1.73m2. Kidney failure is indicated at less than 15 mL/min/1.73m2. Performed By: #### 2 584188, 40205893, 65617971, 2048546, 61942290, 92807139, 9163643 ####[facility] [address] [place] [address] Coding Summary.on 09-04-2022 Coding Summary. Normal [facility] Nursing Assessmenton 022 Nursing Assessment [id number]#[id number]:1 27 Normal [facility] Physician Orderon 09-04-2022 Physician Order [id number]#[id number]:1 27 Normal [facility] ABO/Rhon 08-31-2022 ABO/Rh Positive Invalid Interpretation Code [facility] Comment on above: Performed By: #### 1 2183372, 7823605, 79925980, 96712869 ####[facility] [address] [place] [address] ABO/Rh History Checkon 08-31 ABO/Rh History Check Verified Hx Blood Type Normal [facility] Comment on above: Performed By: #### 1 4162340, 9437125, 37789491, 67517296 ####[facility] [address] [place] [address] ABSCon 08-31-2022 ABSC Gel Interp Negative Normal [facility] Comment on above: Performed By: #### 1 7885278, 5737407, 18486208, 11738748 ####[facility] [address] [place] [address] BUNon 08-31-2022 Urea nitrogen [Mass/Vol] 8 mg/dL Normal 03-04 [facility] Comment on above: Performed By: #### 2 975622, 6661461, 63488917, 7006490, 77041414, 2784815, 7297623, 7234447, 2232567, 9731788, 46635139 ####[facility] [address] [place] [address] Blood Bank ID#on 08-31-2022 BBID# [id number] Invalid Interpretation Code [facility] Comment on above: Performed By: #### 1 3762906, 2641200, 12425188, 26599667 ####[facility] [address] [place] [address] CBC w/Indiceson 08-31-2022 Erythrocyte distribution width (RBC) [Ratio] 12.9 % Normal 10.9-14.2 [facility] Comment on above: Performed By: #### 2 943430, 2251604, 87554200, 7128516, 38005183, 7677269, 6772625, 3954167, 9473753, 4051972, 23119656 ####[facility] [address] [place] [address] Hematocrit (Bld) [Volume fraction] 35.0 % Normal 34.0-46.0 [facility] Comment on above: Performed By: #### 2 038790, 9330682, 15727604, 5096348, 22488433, 0365710, 1266556, 0110965, 6103296, 7967821, 80825150 ####[facility] [address] [place] [address] Hemoglobin (Bld) [Mass/Vol] 12.0 g/dL Normal 12.0-16.0 [facility] Comment on above: Performed By: #### 2 848577, 9674866, 51493801, 6312346, 51880664, 9130418, 4532215, 1671907, 6372868, 9934600, 98527490 ####[facility] [address] [place] [address] MCH (RBC) [Entitic mass] 30.7 pg Normal 27.0-34.0 [facility] Comment on above: Performed By: #### 2 931351, 8635314, 80925586, 4379601, 10741064, 6213483, 4701837, 9475498, 6200480, 0699318, 75309804 ####[facility] [address] [place] [address] MCHC (RBC) [Mass/Vol] 34.4 g/dL Normal 31.4-36.0 [facility] Comment on above: Performed By: #### 2 735921, 4922466, 80902785, 6501852, 92645517, 7351685, 7830767, 3598532, 3642987, 2263750, 90662155 ####[facility] [address] [place] [address] MCV (RBC) [Entitic vol] 89.5 fL Normal 80.0-100.0 [facility] Comment on above: Performed By: #### 2 757194, 2126348, 01560954, 5453518, 43232930, 6761084, 3209040, 5589641, 9853645, 1198270, 53794541 ####[facility] [address] [place] [address] Platelet mean volume (Bld) [Entitic vol] 9.8 fL Normal 6.4-10.8 [facility] Comment on above: Performed By: #### 2 292642, 3592269, 62602302, 3343414, 13428851, 6700761, 5936521, 6337040, 9643681, 9594307, 94069065 ####[facility] [address] [place] [address] Platelets (Bld) [#/Vol] 234.0 E9/L Normal 150.0-500.0 [facility] Comment on above: Performed By: #### 2 455627, 5649095, 63271335, 2946524, 93882177, 4643048, 0823531, 7608230, 1600840, 9622110, 82701704 ####[facility] [address] [place] [address] RBC (Bld) [#/Vol] 3.9 E12/L Low 4.3-5.9 [facility] Comment on above: Performed By: #### 2 302540, 4941175, 45135108, 2479847, 60886777, 0419211, 6029296, 8690327, 7780699, 7783146, 92635268 ####[facility] [address] [place] [address] WBC corrected for nucl RBC Auto (Bld) [#/Vol] 12.6 E9/L High 4.0-11.0 [facility] Comment on above: Performed By: #### 2 175403, 3689126, 76037475, 3414548, 10291700, 2249850, 4936599, 3315770, 8216476, 7870054, 72005895 ####[facility] [address] [place] [address] Creatinineon 08-31-2022 Creatinine [Mass/Vol] 0.7 mg/dL Normal 0.5-1.3 [facility] Comment on above: Performed By: #### 2 324958, 7361009, 69382374, 8966738, 83143610, 1063285, 9947056, 1732749, 9061866, 1229546, 92519348 ####[facility] [address] [place] [address] Discharge Instructionson Discharge Instructions [id number]#[id number]:12 7 Normal [facility] Ethanolon 08-31-2022 Ethanol [Mass/Vol] mg/dL Normal <=7 [facility] Comment on above: Performed By: #### 2 204343 ####[facility] [address] [place] [address] FSPon 08-31-2022 Fibrin+Fibrinogen fragments (S) [Mass/Vol] <10 Normal <10 [facility] Comment on above: Performed By: #### 2 375964, 2094962, 14232940, 3193793, 53615433, 1405490, 7476791, 2505919, 6889023, 9902080, 29555807 ####[facility] [address] [place] [address] Stainon 08-31-2022 FMHV 0 mL Invalid Interpretation Code [facility] Comment on above: Performed By: #### 2 110079, 4332296, 22781320, 0782900, 30346037, 9551401, 7664475, 3702413, 0790227, 8665768, 33310457 ####[facility] [address] [place] [address] Negative Control Negative Normal [facility] Comment on above: Performed By: #### 2 316711, 2332084, 16638834, 1334278, 28345381, 9410662, 0764796, 4948377, 6445387, 9087949, 82298604 ####[facility] [address] [place] [address] Fibrinogenon 08-31-2022 Fibrinogen Coag (PPP) [Mass/Vol] 406 mg/dL High 200-393 [facility] Comment on above: Performed By: #### 2 314013, 8601088, 36924100, 3535858, 00754668, 8944172, 7846432, 5481056, 0858387, 7627260, 54063782 ####[facility] [address] [place] [address] Hep Func Panelon 08-31-2022 Bilirubin.indirect [Mass or moles/Vol] UTC Abnormal 0.1-0.9 [facility] Comment on above: Result Comment: Resu lt verified by Discern Rule. Performed result UTC (Unable to Calculate) was sent as an Alpha code due the inability to calculate a valid numeric value. Performed By: #### 2 791099, 7050494, 96935472, 9738039, 28886242, 9912693, 4677748, 1880051, 2033944, 2445892, 20006624 ####[facility] [address] [place] [address] Albumin [Mass/Vol] 2.8 g/dL Low 3.3-5.0 [facility] Comment on above: Performed By: #### 2 305936, 7925961, 30394500, 8631712, 41219483, 8437383, 3930467, 0184476, 8841520, 6911392, 31270915 ####[facility] [address] [place] [address] Albumin/Globulin (S) [Mass conc ratio] 0.7 Low 1.1-2.2 [facility] Comment on above: Performed By: #### 2 162253, 9433816, 19239657, 7641713, 54533083, 0349125, 0249771, 3969587, 8713299, 1903156, 06188908 ####[facility] [address] [place] [address] ALP [Catalytic activity/Vol] 80 Int._Unit/L Normal 21-98 [facility] Comment on above: Performed By: #### 2 801263, 9268677, 25605057, 4103698, 72760373, 7662358, 8907122, 6155468, 3237412, 2247467, 27499991 ####[facility] [address] [place] [address] ALT No additional P-5'-P [Catalytic activity/Vol] 10 Int._Unit/L Normal 6-46 [facility] Comment on above: Performed By: #### 2 673868, 2999207, 84821497, 4168782, 71412960, 3000844, 7516282, 2916649, 2606655, 2775425, 00663431 ####[facility] [address] [place] [address] AST [Catalytic activity/Vol] 16 Int._Unit/L Normal 5-43 [facility] Comment on above: Performed By: #### 2 020840, 3403636, 63677543, 9353467, 61792912, 6331283, 5175867, 1824513, 5633649, 9040633, 45961090 ####[facility] [address] [place] [address] Bilirubin [Mass/Vol] 0.1 mg/dL Normal 0.0-1.1 [facility] Comment on above: Performed By: #### 2 684611, 0326486, 02990845, 7425977, 85053918, 4832512, 2661208, 8874058, 3752249, 3529166, 94456151 ####[facility] [address] [place] [address] Bilirubin.direct [Mass/Vol] mg/dL Normal 0.1-0.4 [facility] Comment on above: Performed By: #### 2 723261, 4641391, 23742773, 9276424, 63426756, 3758661, 4303198, 3367540, 3699643, 7632010, 08589612 ####[facility] [address] [place] [address] Globulin (S) [Mass/Vol] 3.8 g/dL Normal 1.4-4.0 [facility] Comment on above: Performed By: #### 2 586524, 2362281, 37018456, 1305964, 28629430, 8119808, 4704754, 2974739, 0664920, 4590435, 33630171 ####[facility] [address] [place] [address] Protein [Mass/Vol] 6.6 g/dL Normal 6.0-7.8 [facility] Comment on above: Performed By: #### 2 774476, 2097453, 62311640, 0645021, 47289557, 6075217, 9797642, 7310622, 0707661, 7901934, 63742416 ####[facility] [address] [place] [address] Inpatient Clinical Summaryon 08-31-2022 Inpatient Clinical Summary Normal [facility] Inpatient Patient Summaryon 08-31-2022 Inpatient Patient Summary Normal [facility] Lyteson 08-31-2022 Anion gap [Moles/Vol] 13 mmol/L Normal 6-16 [facility] Comment on above: Performed By: #### 2 661462, 1041089, 00709312, 1773334, 45837167, 1331140, 0933970, 1976700, 9884060, 2095050, 49293246 ####[facility] [address] [place] [address] Chloride [Moles/Vol] 104 mmol/L Normal 101-111 [facility] Comment on above: Performed By: #### 2 337858, 3596616, 22600509, 5302554, 53205904, 1656607, 6039079, 0409526, 1522979, 3102786, 34820699 ####[facility] [address] [place] [address] CO2 [Moles/Vol] 22 mmol/L Normal 21-31 [facility] Comment on above: Performed By: #### 2 916571, 3206547, 52352849, 9704850, 42704580, 0597876, 1100716, 7816467, 0161628, 2423711, 99331253 ####[facility] [address] [place] [address] Potassium [Moles/Vol] 3.5 mmol/L Normal 3.5-5.3 [facility] Comment on above: Performed By: #### 2 265050, 5687248, 23828695, 0548909, 48213263, 8473717, 9118338, 2631869, 0417726, 1562915, 57253029 ####[facility] [address] [place] [address] Sodium [Moles/Vol] 135 mmol/L Normal 135-145 [facility] Comment on above: Performed By: #### 2 750409, 4218245, 23110496, 4927780, 06942077, 4889096, 7326442, 5382002, 6197435, 8867852, 61648148 ####[facility] [address] [place] [address] Nursing Assessmenton 022 Nursing Assessment [id number]#[id number]:12 7 Normal [facility] PT & PTTon 08-31-2022 aPTT Coag (PPP) [Time] 26.3 second(s) Normal 25.1-36.5 [facility] Comment on above: Result Comment: Para [...] the same coagulation reagent and instrumentation as [facility]. Currently there are no coagulation studies available worldwide for children to 14 days, and no normal ranges. Heparin therapeutic range (represented by Anti-Factor Xa activity of 0.2 - 0.4 U/mL) corresponds to PTT of 56.6 - 109.0 sec. Performed By: #### 2 932321, 1906786, 47530095, 2312645, 53023746, 9614114, 4749329, 4618681, 6900577, 5416810, 56735601 ####[facility] [address] [place] [address] INR Coag (PPP) [Relative time] 0.9 {INR} Invalid Interpretation Code [facility] Comment on above: Result Comment: INR results are specifically intended to assess patients stabilized on long-term Anticoagulation therapy suggested INR?s ?Less Intensive Anticoagulation? 2.0 ? 3.0Conventional Range 3.0 ? 4.5 Performed By: #### 2 208155, 4252692, 81264807, 9364965, 35654324, 3482516, 6394891, 5946829, 0055335, 7245820, 88510467 ####[facility] [address] [place] [address] PT Coag (PPP) [Time] 10.2 second(s) Normal 9.4-12.5 [facility] Comment on above: Result Comment: 15 [...] the same coagulation reagent and instrumentation as [facility]. Currently there are no coagulation studies available worldwide for children to 14 days, and no normal ranges. Performed By: #### 2 394644, 4121014, 86114264, 8544286, 02288510, 9084818, 8987759, 3715969, 6763840, 9157487, 96551454 ####[facility] [address] [place] [address] U Drug Screenon 08-31-2022 Amphetamines Screen method >1000 ng/mL Ql (U) Negative Normal Negative [facility] Comment on above: Result Comment: Nega tive Cutoff: <1000 ng/mL Performed By: #### 2 970577, 39610520 ####[facility] [address] [place] [address] Barbiturates Screen Ql (U) Negative Normal Negative [facility] Comment on above: Result Comment: Nega tive Cutoff: <200 ng/mL Performed By: #### 2 805065, 53303568 ####[facility] [address] [place] [address] Benzodiazepines Ql (U) Negative Normal Negative [facility] Comment on above: Result Comment: Nega tive Cutoff: <200 ng/mL Performed By: #### 2 985831, 21117152 ####[facility] [address] [place] [address] Cocaine Ql (U) Negative Normal Negative [facility] Comment on above: Result Comment: Nega tive Cutoff: <300 ng/mL Performed By: #### 2 709226, 17072559 ####[facility] [address] [place] [address] Opiates Screen Ql (U) Negative Normal Negative [facility] Comment on above: Result Comment: Nega tive Cutoff: <300 ng/mL Performed By: #### 2 418972, 07539317 ####[facility] [address] [place] [address] Phencyclidine Screen method >25 ng/mL Ql (U) Negative Normal Negative [facility] Comment on above: Result Comment: Nega tive Cutoff: <25 ng/mLThese drug screen results are to be used for medical (i.e., treatment) purposes only. Unconfirmed drug screening results must not be used for non-medical purposes (e.g., employment testing, legal testing). Performed By: #### 2 476401, 28304757 ####[facility] [address] [place] [address] Tetrahydrocannabinol Screen method >50 ng/mL Ql (U) Negative Normal Negative [facility] Comment on above: Result Comment: Nega tive Cutoff: <50 ng/mL Performed By: #### 2 203173, 24611678 ####[facility] [address] [place] [address] UA With Cult Reflexon 2021 Bacteria LM Ql (Urine sed) TRACE Normal Trace [facility] Comment on above: Performed By: #### 2 329326, 89256307 ####[facility] [address] [place] [address] Bilirubin Ql (U) Negative Normal Negative [facility] Comment on above: Performed By: #### 2 290171, 24643352 ####[facility] [address] [place] [address] Clarity (U) CLEAR Normal Clear [facility] Comment on above: Performed By: #### 2 880188, 53578537 ####[facility] [address] [place] [address] Color (U) YELLOW Normal Yellow [facility] Comment on above: Performed By: #### 2 027556, 35828882 ####[facility] [address] [place] [address] Epithelial cells.squamous LM.HPF (Urine sed) [#/Area] 0-2 Normal 0-2 [facility] Comment on above: Performed By: #### 2 261724, 42100287 ####[facility] [address] [place] [address] Glucose Test strip (U) [Mass/Vol] Negative Normal Negative [facility] Comment on above: Performed By: #### 2 340010, 66605289 ####[facility] [address] [place] [address] Hemoglobin Ql (U) Negative Normal Negative [facility] Comment on above: Performed By: #### 2 012289, 11609117 ####[facility] [address] [place], [place] [address] Ketones (U) [Mass/Vol] Negative Normal Negative [facility] Comment on above: Performed By: #### 2 [id number], [id number] ####[facility] [address] [place] [address] Valentine.plasma/Valentine .RBC (Bld) [Mass ratio] 0-3 Normal 0-3 [facility] Comment on above: Performed By: #### 2 860025, [id number] ####[facility] [address] [place] [address] Nitrite Ql (U) Negative Normal Negative [facility] Comment on above: Performed By: #### 2 787165, [id number] ####[facility] [address] [place] [address] pH (U) 6.0 [pH] Invalid Interpretation Code 5.0-9.0 [facility] Comment on above: Performed By: #### 2 [id number], [id number] ####[address] [address] Protein (U) [Mass/Vol] Negative Normal Negative [facility] Comment on above: Performed By: #### 2 957065, [id number] ####[address] [address] Specific gravity (U) [Rel density] 1.010 Invalid Interpretation Code 1.005-1.030 [facility] Comment on above: Performed By: #### 2 430968, [id number] ####[address] [address] Type of Urine collection method Clean Catch Normal [facility] Comment on above: Performed By: #### 2 932164, [id number] ####[address] [address] Urobilinogen Qn (U) 0.2 {Rola'U}/dL Normal 0.0-1.0 [facility] Comment on above: Performed By: #### 2 276397, [id number] ####[address] [address] WBC Auto Ql (U) Negative Normal Negative [facility] Comment on above: Performed By: #### 2 809224, [id number] ####[address] [address] WBC LM.HPF (Urine sed) [#/Area] 0-5 Normal 0-5 [facility] Comment on above: Performed By: #### 2 210800, [id number] ####[address] [address] Uric Acidon 08-31-2022 Urate [Mass/Vol] 5.0 mg/dL Normal 2.2-7.4 [facility] Comment on above: Performed By: #### 2 209932, [id number], [id number], 1779719, [id number], 7417233, 0215531, 8729412, 0616898, 8340324, [id number] ####[facility] [address] [place] [address] eGFRon 08-31-2022 GFR/1.73 sq M.predicted among blacks MDRD (S/P/Bld) [Vol rate/Area] mL/min/{1.73_m2} Normal >=59 [facility] Comment on above: Order Comment: Order added by Discern Expert. Result Comment: eGFR is race adjusted. AA=. Performed By: #### 2 420963, 3211580, [id number], 0970364, 81337270, 6329195, 2956522, 6124344, 7825209, 9584922, [id number] ####[facility] [address] [place] [address] GFR/1.73 sq M.predicted among non-blacks MDRD (S/P/Bld) [Vol rate/Area] mL/min/{1.73_m2} Normal >=59 [facility] Comment on above: Order Comment: Order added by Discern Expert. Result Comment: Real Estate Financial Analyst lucy kidney disease could be indicated at eGFR's of less than 60 mL/min/1.73m2. Kidney failure is indicated at less than 15 mL/min/1.73m2. Performed By: #### 2 237690, 4935812, [id number], 6425721, [id number], 8718608, 2041707, 8290249, 9456263, 3378338, 23744851 ####[facility] [address] [place] [address] BLOOD BANKOrdered By: Naldo Li on 08-30-2022 ABO/Rh Interp Positive Invalid Interpretation Code [facility] BB Subsection ABSC Gel Interp Negative (08/30/22 11:51 PM) Normal [facility] BB Subsection FMHV 0 mL Invalid Interpretation Code [facility] Man Sero CHEMISTRYOrdered [...] m2 [facility] Chem S Globulin (S) [Mass/Vol] 3.8 g/dL [...] second(s) [facility] Auto Coag Consent for Treatmenton 11-1 6-2022 Consent for Treatment [id number] Normal [facility] HEMATOLOGYOrdered By: Naldo Li on 08-30-2022 [...] [Mass/Vol] Negative (08/30/22 9:45 PM) Normal Negative [facility] Auto SS Hemoglobin Ql (U) Negative (08/30/22 9:45 PM) Normal Negative [facility] UA Auto SS Ketones (U) [Mass/Vol] Negative (08/30/22 9:45 PM) Normal Negative [facility]A Auto SS Valentine.plasma/Valentine .RBC (Bld) [Mass ratio] 0-3 /HPF Normal 0-3/HPF [facility]A Auto SS Nitrite Ql (U) Negative (08/30/22 9:45 PM) Normal Negative [facility] Auto SS pH (U) 6.0 *NA* (08/30/22 9:45 PM) Invalid Interpretation Code 5.0 - 9.0 [facility]A Auto SS Protein (U) [Mass/Vol] Negative (08/30/22 9:45 PM) Normal Negative [facility] UA Auto SS Specific gravity (U) [Rel density] 1.010 *NA* (08/30/22 9:45 PM) Invalid Interpretation Code 1.005 - 1.030 [facility] Auto SS UA Spec Desc Clean Catch (08/30/22 9:45 PM) Normal [facility] UA Auto SS Urobilinogen Qn (U) 0.3327286 {Rola'U}/dL Normal 0.0 - 1.0 EU/dL [facility]A Auto SS WBC Auto Ql (U) Negative (08/30/22 9:45 PM) Normal Negative [facility] UA Auto SS WBC LM.HPF (Urine sed) [#/Area] 0-5 /HPF Normal 0-5/HPF [facility] UA Auto SS Coding Summary.on 08-28-2022 Coding Summary. Normal [facility] BLOOD BANKOrdered By: Janet Reyes on 08-22-2022 ABO/Rh Interp Positive Invalid Interpretation Code [facility] BB Subsection ABSC Gel Interp Negative (08/22/22 4:03 PM) Normal [facility] BB Subsection FMHV 0 mL Invalid Interpretation Code [facility] Man Sero CHEMISTRYOrdered [...] PM) Normal Negative [facility] UA Auto SS Valentine.plasma/Valentine .RBC (Bld) [Mass ratio] 0-3 /HPF Normal [...] [facility] UA Auto SS Urobilinogen Qn (U) 0.6159370 {Rola'U}/dL Normal 0.0 - 1.0 EU/dL [facility] [...] AM) Normal Negative [facility] UA Auto SS Valentine.plasma/Valentine .RBC (Bld) [Mass ratio] 0-3 /HPF Normal [...] [facility] UA Auto SS Urobilinogen Qn (U) 0.2986963 {Rola'U}/dL Normal 0.0 - 1.0 EU/dL [facility] UA Auto SS WBC Auto Ql (U) 2+ *ABN* (08/18/22 4:08 AM) Invalid Interpretation Code Negative [facility] UA Auto SS WBC LM.HPF (Urine sed) [#/Area] 6-15 /HPF Invalid Interpretation Code 0-5/HPF [facility] UA Auto SS BLOOD BANKOrdered By: Tom Avelar on 08-13-2022 ABO/Rh Interp Positive Invalid Interpretation Code [facility] BB Subsection ABSC Gel Interp Negative (08/13/22 6:26 PM) Normal [facility] BB Subsection FMHV 0 mL Invalid Interpretation Code [facility] Man Sero CHEMISTRYOrdered [...] Interpretation Code Negative [facility] UA Auto SS Valentine.plasma/Valentine .RBC (Bld) [Mass ratio] 0-3 /HPF Normal [...] [facility] UA Auto SS Urobilinogen Qn (U) 0.8615349 {Rola'U}/dL Normal 0.0 - 1.0 EU/dL [facility] [...] AM) Normal Negative [facility] UA Auto SS Valentine.plasma/Valentine .RBC (Bld) [Mass ratio] 0-3 /HPF Normal [...] [facility] UA Auto SS Urobilinogen Qn (U) 0.1451478 {Rola'U}/dL Normal 0.0 - 1.0 EU/dL [facility] [...] (Urine sed) [#/Area] 3-4 /HPF Normal 0-2/HPF [facility] UA Auto SS Glucose Test strip (U) [Mass/Vol] Negative (07/17/22 9:25 AM) Normal Negative [facility] UA Auto SS Hemoglobin Ql (U) Negative (07/17/22 9:25 AM) Normal Negative [facility] UA Auto SS Ketones (U) [Mass/Vol] Negative (07/17/22 9:25 AM) Normal Negative [facility] UA Auto SS Valentine.plasma/Valentine .RBC (Bld) [Mass ratio] 0-3 /HPF Normal 0-3/HPF [facility] UA Auto SS Nitrite Ql (U) Negative (07/17/22 9:25 AM) Normal Negative [facility] UA Auto SS pH (U) 7.0 *NA* (07/17/22 9:25 AM) Invalid Interpretation Code 5.0 - 9.0 [facility] UA Auto SS Protein (U) [Mass/Vol] Negative (07/17/22 9:25 AM) Normal Negative [facility] UA Auto SS Specific gravity (U) [Rel density] <=1.005 *NA* (07/17/22 9:25 AM) Invalid Interpretation Code 1.005 - 1.030 [facility] UA Auto SS UA Spec Desc Clean Catch (07/17/22 9:25 AM) Normal [facility] UA Auto SS Urobilinogen Qn (U) 0.8627366 {Rola'U}/dL Normal 0.0 - 1.0 EU/dL [facility] UA Auto SS WBC Auto Ql (U) Negative (07/17/22 9:25 AM) Normal Negative [facility] UA Auto SS WBC LM.HPF (Urine sed) [#/Area] 0-5 /HPF Normal 0-5/HPF [facility] UA Auto SS CHEMISTRYOrdered By: SYSTEM SYSTEM on 06-28-2022 Glucose 1 Hr post 50 g glucose PO [Mass/Vol] 93 mg/dL Normal 55 - 140 mg/dL [facility] Remisol HEMATOLOGYOrdered By: Keila Ring on 06-28-2022 Hematocrit (Bld) [Volume fraction] 35.4 % Normal 34.0 - 46.0 % [facility] HemeAutoSS Hemoglobin (Bld) [Mass/Vol] 12.1 g/dL Normal 12.0 - 16.0 gm/dL [facility] HemeAutoSS BLOOD BANKOrdered By: Jeanette n Corrine on 06-19-2022 ABO/Rh Interp Positive Invalid Interpretation Code [facility] BB Subsection ABSC Gel Interp Negative (06/19/22 12:15 AM) Normal [facility] BB Subsection FMHV 0 mL Invalid Interpretation Code [facility] Man Sero CHEMISTRYOrdered [...] rate/Area] mL/min/1.73 m2 Normal >=59mL/min/ 1.[address] [facility] Chem S Globulin (S) [Mass/Vol] 3.5 g/dL [...] 26.9 s Normal 25.1 - 36.5 second(s) [facility] Auto Coag Fibrin+Fibrinogen fragments (S) [Mass/Vol] <10 (06/19/22 12:15 AM) Normal <10 [facility] Man Sero Fibrinogen Coag (PPP) [Mass/Vol] 367 mg/dL Normal 200 - 393 mg/dL [facility] Auto Coag INR Coag (PPP) [Relative time] 0.9 {INR} Invalid Interpretation Code [facility] Auto Coag PT Coag (PPP) [Time] 10.3 s Normal 9.4 - 1 2.5 second(s) [facility] Auto Coag HEMATOLOGYOrdered By: Jeanette Castle on 06-19-2022 Erythrocyte distribution width (RBC) [Ratio] 13.5 % Normal 10.9 - 14.2 % FT HemeAutoSS Hematocrit (Bld) [Volume fraction] 34.8 % Normal 34.0 - 46.0 % [facility] HemeAutoSS Hemoglobin (Bld) [Mass/Vol] 11.7 g/dL Low 12.0 - 16.0 gm/dL [facility] HemeAutoSS MCH [...] PM) Normal Negative [facility] UA Auto SS Valentine.plasma/Valentine .RBC (Bld) [Mass ratio] 0-3 /HPF Normal [...] [facility] UA Auto SS Urobilinogen Qn (U) 0.4392944 {Rola'U}/dL Normal 0.0 - 1.0 EU/dL [facility] [...] PM) Normal Negative [facility] UA Auto SS Valentine.plasma/Valentine .RBC (Bld) [Mass ratio] 0-3 /HPF Normal 0-3/HPF [facility] UA Auto SS Mucus Ql (Urine sed) Trace (05/01/22 5:20 PM) Normal [facility] UA Auto SS Nitrite Ql (U) Negative (05/01/22 5:20 PM) Normal Negative [facility] UA Auto SS pH (U) 5.5 *NA* (05/01/22 5:20 PM) Invalid Interpretation Code 5.0 - 9.0 [facility] UA Auto SS Protein (U) [Mass/Vol] Trace *ABN* (05/01/22 5:20 PM) Invalid Interpretation Code Negative [facility] UA Auto SS Specific gravity (U) [Rel density] >=1.030 *NA* (05/01/22 5:20 PM) Invalid Interpretation Code 1.005 - 1.030 [facility] UA Auto SS UA Spec Desc Random Urine (05/01/22 5:20 PM) Normal [facility] UA Auto SS Urobilinogen Qn (U) 1.6689354 {Rola'U}/dL Normal 0.0 - 1.0 EU/dL [facility] UA Auto SS WBC Auto Ql (U) Negative (05/01/22 5:20 PM) Normal Negative [facility] UA Auto SS WBC LM.HPF (Urine sed) [#/Area] 0-5 /HPF Normal 0-5/HPF [facility] UA Auto SS BLOOD BANKOrdered By: Shayy Medina on 04-02-2022 ABO/Rh Interp Positive Invalid Interpretation Code [facility] BB Subsection ABSC Gel Interp Negative (04/02/22 7:17 AM) Normal [facility] BB Subsection FMHV 0 mL Invalid Interpretation Code [facility] Man Sero CHEMISTRYOrdered [...] AM) Normal Negative [facility] UA Auto SS Valentine.plasma/Valentine .RBC (Bld) [Mass ratio] 0-3 /HPF Normal [...] [facility] UA Auto SS Urobilinogen Qn (U) 0.7966230 {Rola'U}/dL Normal 0.0 - 1.0 EU/dL [facility] [...] PM) Normal Negative [facility] UA Auto SS Valentine.plasma/Valentine .RBC (Bld) [Mass ratio] 0-3 /HPF Normal [...] [facility] UA Auto SS Urobilinogen Qn (U) 0.6656964 {Rola'U}/dL Normal 0.0 - 1.0 EU/dL [facility] [...] 6.7 E9/L Normal 4.0 - 11.0 E9/L [facility] HemeAutoSS Reference Laboratory Testing Ordered By: Stephanie Mirandaerd on 02-15-2022 Test Code 655872 Invalid Interpretation Code [facility] SendOutsSS Test Name IG PAP CTNG HPV Invalid Interpretation Code [facility] SendOutsSS CNPNon 05-05-2021 CNPN Telephone (GSTCON) ----- SUSAN BRO ([id number]) 1995 F Date Time Provider Department 05/05/21 MARTHA WEBB During your visit today, we recorded the following information about you: Tucker Danii Rn Mobile 05/05/2021 10:37 AM Signed Patient left message [...] diligent work on this patient Tucker Bales Rn Mobile 05/24/2021 2:23 PM Signed patient called and left a message today stating she needs to get this figured out she has not eaten in 3 days and cant even drink water now. Patient can be reached at [phone]- please read messages below for refresher Martha Webb MD 05/24/2021 4:30 PM Signed Please advise patient to go to ER for evaluation Tucker Bales Rn Mobile 05/24/2021 4:35 PM Signed Had to leave [...] so we can get records Tucker Bales Rn Mobile 05/26/2021 3:28 PM Signed Pt did not [...] bed and continue this dose - rizatriptan (MAXALT-LANDING WORKER) 10 mg disintegrating tablet Take 1 tablet by mouth as needed for Migraine Headache (see administration instructions). AT ONSET OF HEADACHE. MAY REPEAT AFTER 2 HOURS. DO NOT EXCEED 30 MG PER DAY. Problem List As Of Date: 05/05/2021 (None) Encounter Status:Closed by DANII POWERHOUSE MECHANIC HELPERTUCKER on 05/06/21 [facility] 04-07-2021 CNPN Telephone (GSTCON) ----- SUSAN BRO ([id number]) 1995 F Date Time Provider Department 04/07/21 MARTHA WEBB During your visit today, we recorded the following information about you: Tucker Bales Rn Mobile 04/07/2021 12:31 PM Signed NM called and they need the GES solid orde rplaced even though she has to use ensure, please sign order in this encounter Allergies As of Date: 04/07/2021 Noted Allergy Reaction PENICILLINS 03/10/2021 2 - Rash Date Reviewed: 04/01/2021 Reviewed by: Odette Agosto MD - Fully Assessed Reason for Visit: Orders [681] Visit Diagnosis:Nausea [R11.0] Order(s):NM GASTRIC EMPTYING SOLID [2585351] Order #: [id number] FUTURE Prescriptions as of 04/07/2021 Sig: AMITRIPTYLINE 10 MG TABLET Take 1 tab at bed x 1 week, t* RIZATRIPTAN 10 MG DISINTEGRAT* Take 1 tablet by mouth as nee* Problem List As Of Date: 04/07/2021 (None) Encounter Status:Closed by MAR[facility] WEBB on 04[facility]07/21 [facility] Tele[facility] (GSTCON) ----- SUSAN BRO ([id number]) 1995 F Date Time Provider Department 04/04/21 MARTHA WEBB During your visit today, we recorded the following information about you: Tucker Bales Rn Mobile 04/04/2021 1:40 PM Signed Patient called and is still waiting for you to place the order for her GES with ensure, she cant eat the eggs and toast Martha Webb MD 04/04/2021 4:48 PM Signed Let patient know I placed the order Tucker Bales Rn Mobile 04/05/2021 11:41 AM S[address] you place [...] Visit Diagnosis:Nausea [R11.0] Order(s):NM GASTRIC EMPTYING LIQUID [[id number]] Order #: [id number] FUTURE Prescriptions as of 04/04/2021 Sig: AMITRIPTYLINE 10 MG TABLET Take 1 tab at bed x 1 week, t* RIZATRIPTAN 10 MG DISINTEGRAT* Take 1 tablet by mouth as nee* Problem List As Of Date: 04/04/2021 (None) Encounter Status:Closed by MARTHA WEBB on 04/05/21 [facility] CNOVon 04-01-2021 CNOV Office Visit (NHMNS2 ) ----- SUSAN BRO ([id number]) 1995 F Date Time Provider Department 04/01/21 8:00 AM [facility] During your visit today, we recorded the following information about you: Pulse Blood pressure Weight Height 72/minute 111/67 70.9 kg 1.626 m Last Period 02/23/21 Rigoberto Zimmer [place] 04/01/2021 7:54 AM Addendum Please start taking [...] at least 3 months. These include all ldlj-sia-ocakyjh medications, triptans, narcotics, and butalbital containing medications [...] There h (more content not included)... Normal [facility] 03-22-2021 CNPN Telephone (LIQUITY) ----- SUSAN BRO ([id number]) 1995 F Date Time Provider Department 03/22/21 MARTHA WEBB During your visit today, we recorded the following information about you: Tucker Fournier 03/22/2021 2:28 PM Signed Received: Today MD Eusebia Banks Cig Clinical Pool; Tucker Hatchh Rn Mobile Let patient know esophagram was normal Next step is gastric emptying study I placed order for gastric emptying study Tucker Fournier 03/22/2021 2:28 PM Signed Pt is notified, will schedule the GES Allergies As of Date: 03/22/2021 Noted Allergy Reaction PENICILLINS 03/10/2021 2 - Rash Date Reviewed: 03/10/2021 Reviewed by: Martha Webb MD - Fully Assessed Reason for Visit: Results [95] Problem List As Of Date: 03/22/2021 (None) Encounter Status:Closed by TUCKER LARA on 03/22/21 [facility] XR ESOPHAGRAMon 03-17-2021 XR ESOPHAGRAM * * *Final Report* * * DATE OF EXAM: Mar 17 2021 10:19AM [facility] 5378 - XR ESOPHAGRAM / PROCEDURE REASON: [...] symptoms. Other Findings: None. IMPRESSION: Normal esophagram. Power Brake Operator: LUCITA Transcribe Date/Time: Mar 17 2021 11:15A Dictated by : CRISTÓBAL SALINAS DO This examination was interpreted and the report reviewed and electronically signed by: CRISTÓBAL SALINAS DO on Mar 17 2021 11:18AM EST [id number] (GSTCON ) ----- SUSAN BRO ([id number]) 1995 F Date Time Provider Department 03/10/21 11:15 AM MARTHA WEBB During your visit today, we recorded the following information about you: Pulse Blood pressure Weight Height 69/minute 108/76 73 kg 1.626 m Martha Webb MD 03/10/2021 12:03 PM Signed This note was created using becoacht GmbHriter. Subjective Susan Bro is a 25 year [...] Un (more content not included)... [facility] Telephone (GASTLB) ----- SUSAN BRO ([id number]) 1995 F Date Time Provider Department 03/10/21 MARTHA WEBB During your visit today, we recorded the following information about you: Don Trevino Rn Mobile 03/10/2021 1:24 PM Signed Failed fax in [employer] from 03/10/2021 regarding this patient from Dr. Webb. Faxed manually to [phone]. Scanned fax confirmation/documents into [employer]. Don Trevino Rn Mobile Allergies As of Date: 03/10/2021 Noted Allergy Reaction PENICILLINS 03/10/2021 2 - Rash Date Reviewed: 03/10/2021 Reviewed by: Martha Webb MD - Fully Assessed Reason for Visit: Electronic Communication [890] Problem List As Of Date: 03/10/2021 (None) Encounter Status:Closed by MOBASSERI POWERHOUSE MECHANIC HELPERDON FOURNIER on 03/10/21 [facility] CBC WITH AUTO DIFFERENTIALon 10-14-2020 Basophils (Bld) [#/Vol] 0.06 10*3/uL [facility] Basophils/100 WBC (Bld) 0.6 % [facility] Eosinophils (Bld) [#/Vol] 0.36 10*3/uL [facility] Eosinophils/100 WBC (Bld) 3.4 % [facility] Erythrocyte distribution width (RBC) [Entitic vol] 13.2 % 11.6 - 14.8 % [facility] Hematocrit (Bld) [Volume fraction] 43.2 % 36 - 46 % [facility] Hemoglobin (Bld) [Mass/Vol] 14.1 g/dL 12 - 16 g/dL [facility] Immature granulocytes (Bld) [#/Vol] 0.03 10*3/uL [facility] Immature granulocytes/100 WBC (Bld) 0.30 % [facility] Comment on above: The IG parameter is the percentage of metamyelocytes, myelocytes and promyelocytes. An immature granulocyte count (IG) of 1% or more suggests the possibility of infection, an IG count of 3% is very likely related to an infection. Interpretation and review of laboratory results Abnormal [facility] Lymphocytes (Bld) [#/Vol] 1.47 10*3/uL [facility] Lymphocytes/100 WBC (Bld) 13.8 % [facility] MCH (RBC) [Entitic mass] 29.6 pg 26 - 34 pg [facility] MCHC (RBC) [Mass/Vol] 32.6 g/dL 31 - 3 7 g/dL [facility] MCV (RBC) [Entitic vol] 90.6 fL 80 - 100 fL [facility] Monocytes (Bld) [#/Vol] 0.58 10*3/uL [facility] Monocytes/100 WBC (Bld) 5.5 % [facility] Neutrophils (Bld) [#/Vol] 8.12 10*3/uL High [facility] Neutrophils/100 WBC (Bld) 76.4 % [facility] Nucleated RBC (Bld) [#/Vol] 0.00 10*3/uL [facility] Nucleated RBC/100 WBC (Bld) [Ratio] 0.0 % [facility] Platelet mean volume (Bld) [Entitic vol] 10.3 fL 9.4 - 12.4 fL [facility] Platelets (Bld) [#/Vol] 251 10*3/uL [facility] RBC (Bld) [#/Vol] 4.77 10*6/uL [facility] WBC (Bld) [#/Vol] 10.62 10*3/uL [facility] COVID-19/INFLUENZA A,B MOLEC [facility] 10-14-2020 COVID-19/INFLUENZA A,B MOLECULAR SARS-COV-2 (SANA): Not Detected INFLUENZA A (SANA): Not Detected INFLUENZA B (SANA): Not Detected Normal Not Detected [facility] Comment on above: Order Comment: This [...] at the following links: For Healthcare Providers: https://www.fda.gov/media/620612/download For Patients: https://www.fda.gov/media/021437/download Performed By: #### L [id number] #### LAB [address] [place], [place] [address] Raffy Yadav M.D. [id number] COVID-19/Influenza A,B [facility] 10-14-2020 Influenza A Not Detected Not Detected [facility] Influenza B Not Detected Not Detected [facility] Interpretation and review of laboratory results Normal [facility] SARS-CoV-2 Not Detected Not Detected [facility] This test was perfor med [...] the following links: For Healthcare Providers: https://www.fda.gov/media /607768/download For Patients: https://www.fda.gov/media /609768/download [facility] CT HEAD OR BRAIN WITHOUT [...] SunOct 14, 2020 11:28:15 AM EST Normal [facility] Comment on above: Order Comment: Injur [...] and paranasal sinuses are grossly unremarkable. [facility] 1. No acute intracra nial hemorrhage, focal edema or mass effect. Workstation ID: [id number] [facility] Interface, Rad In Fu ji [...] edema or mass effect. Workstation ID: [id number] [facility] Chem 7on 10-14-2020 Anion gap [Moles/Vol] 8 mmol/L Low 10 - 2 0 mmol/L [facility] Chloride [Moles/Vol] 112 mmol/L High 98 - 10 8 mmol/L [facility] Creatinine [Mass/Vol] 0.78 mg/dL 0.40 - 1.10 [facility] GFR/1.73 sq M predicted among non-blacks MDRD (S/P/Bld) [Vol rate/Area] The eGFR should be used for monitoring renal function only and not for medication dosing. [facility] GFR/1.73 sq M.predicted CKD-EPI (S/P/Bld) [Vol rate/Area] 105 >=60 mL/min/1.73 m2 [facility] Glucose [Mass/Vol] 78 mg/dL 65 - 99 mg/dL [facility] HCO3 [Moles/Vol] 24 mmol/L 21 - 32 mmol/L [facility] Interpretation and review of laboratory results Abnormal [facility] Potassium [Moles/Vol] 4.5 mmol/L 3.5 - 5.1 mmol/L [facility] Comment on above: moderate hemolysis, result may be falsely increased. Sodium [Moles/Vol] 139 mmol/L 135 - 145 mmol/L [facility] Urea nitrogen [Mass/Vol] 5 mg/dL Low 8 - 25 mg/dL [facility] Urea nitrogen/Creatinine [Mass ratio] 6.4 mg/mg Low [facility] Otheron 10-14-2020 Extra Tube Hold for add-ons. [facility] Comment on above: Auto resulted. URINALYSISon 10-14-2020 Bacteria Auto Ql (U) None Seen None Se en /hpf [facility] Bilirubin Ql (U) Negative Negative [facility] Clarity Refractometry automated (U) Cloudy Abnormal Clear [facility] Color (U) Yellow Colorless, Yellow [facility] Epithelial cells.squamous Auto (Urine sed) [#/Area] 18 High [facility] Glucose Auto test strip (U) [Mass/Vol] Negative Negative mg/dL [facility] Hemoglobin Auto test strip Ql (U) Negative Negative [facility] Interpretation and review of laboratory results Abnormal [facility] Ketones (U) [Mass/Vol] Negative Negat juju mg/dL [facility] Leukocyte esterase Auto test strip Ql (U) Trace Abnormal Negative [facility] Mucus Auto (Urine sed) [#/Area] Many Abnormal None Seen, Rare /lpf [facility] Nitrite Auto test strip Ql (U) Negative Negative [facility] pH (U) 8.0 [pH] High [facility] Protein (U) [Mass/Vol] 30 Abnormal Negat juju mg/dL [facility] Comment on above: False positive resul ts may occur in urines with large amounts of hemoglobin, pH greater than 8.0, contrast medium, or disinfectants including ammonium compounds. RBC Auto (Urine sed) [#/Area] 3 [facility] [facility] Specific gravity (U) [Rel density] 1.028 High [facility] Urobilinogen (U) [Mass/Vol] 2.0 mg/dL Abnormal <2.0 [facility] WBC Auto (Urine sed) [#/Area] 3 [facility] Microscopic examinat ion is performed on all urinalysis samples and only positive findings are reported. The test for blood on the chemical analytic portion of urinalysis may also be positive due to hemoglobinuria and myoglobinuria and if red blood cells are present they are quantified by microscopic examination. [facility] hCG Urine, Qualitativeon HCG ( test) Ql (U) Negative Negative [facility] Interpretation and review of laboratory results Normal [facility] ABDOMEN, COMPLT ACUTE SERIES on 09-05-2020 ABDOMEN, COMPLT ACUTE SERIES Patient Name: SUSAN BRO STUDY: ABDOMEN, COMPLT ACUTE SERIES; 09/04/2020 11:54 pm INDICATION: constipation. COMPARISON: None. ACCESSION NUMBER(S): [id number] ORDERING CLINICIAN: BRAYDEN YANEZ TECHNIQUE: Abdomen supine [...] signed by: CANDACE AREVALO MD Normal [facility] BASIC METABOLIC PANELon 08-16 Anion gap [Moles/Vol] 12 mmol/L Normal 10 - 20 [facility] Comment on above: Performed By: #### B MP #### [address] [address] Calcium [Mass/Vol] 9.0 mg/dL Normal 8.6 - 10.3 [facility] Comment on above: Performed By: #### B MP #### [address] [address] Chloride [Moles/Vol] 105 mmol/L Normal 98 - 107 [facility] Comment on above: Performed By: #### B MP #### [address] [address] Creatinine [Mass/Vol] 0.90 mg/dL Normal 0.50 - 1.[address] [facility] Comment on above: Performed By: #### B MP #### [address] [address] GFR- AM. >60 Normal >60 [facility] Comment on above: Result Comment: CALC ULATIONS OF ESTIMATED GFR ARE PERFORMED USING THE MDRD STUDY EQUATION FOR THE IDMS-TRACEABLE CREATININE METHODS. CLIN CHEM 2007;53:766-72 Performed By: #### B MP #### [address] [address] GFR-NON AM. >60 Normal >60 [facility] Comment on above: Performed By: #### B MP #### [address] [address] Glucose [Mass/Vol] 96 mg/dL Normal 74 - 99 [facility] Comment on above: Performed By: #### B MP #### [address] [address] HCO3 (Bld) [Moles/Vol] 25 mmol/L Normal 21 - [address] [facility] Comment on above: Performed By: #### B MP #### [address] [address] Potassium [Moles/Vol] 3.5 mmol/L Normal 3.5 - 5.3 [facility] Comment on above: Performed By: #### B MP #### [address] [address] Sodium [Moles/Vol] 138 mmol/L Normal 136 - 145 [facility] Comment on above: Performed By: #### B MP #### [address] [address] Urea nitrogen [Mass/Vol] 7 mg/dL Normal 6 - 23 [facility] Comment on above: Performed By: #### B MP #### [address] [address] CBCon 09-05-2020 Erythrocyte distribution width (RBC) [Ratio] 13.2 % Normal 11.5 - 14.5 [facility] Comment on above: Performed By: #### C BC #### [address] [address] Hematocrit (Bld) [Volume fraction] 42.5 % Normal 36.0 - 46.0 [facility] Comment on above: Performed By: #### C BC #### [address] [address] Hemoglobin (Bld) [Mass/Vol] 14.5 g/dL Normal 12.0 - 16.0 [facility] Comment on above: Performed By: #### C BC #### [address] [address] MCHC (RBC) [Mass/Vol] 34.2 g/dL Normal 32.0 - 36.[address] [facility] Comment on above: Performed By: #### C BC #### [address] [address] MCV (RBC) [Entitic vol] 88 fL Normal 80 - 100 [facility] Comment on above: Performed By: #### C BC #### [address] [address] Platelets (Bld) [#/Vol] 272 10*3/uL Normal 150 - 450 [facility] Comment on above: Performed By: #### C BC #### [address] [address] RBC (Bld) [#/Vol] 4.86 x10E12/L Normal 4.00 - 5.20 [facility] Comment on above: Performed By: #### C BC #### [address] [address] WBC (Bld) [#/Vol] 12.5 10*3/uL High 4.4 - 11.3 [facility] Comment on above: Performed By: #### C BC #### [address] [address] HCG,URINEon 09-05-2020 Beta HCG ( test) Ql (U) Negative Normal Negative [facility] Comment on above: Performed By: #### H CGU #### [address] [address] Provider Note - ED v2on 08-16 Provider [...] SIGNIFICANT EVENTS: 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: Is : no(1) Is : no(1) REVIEW [...] an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 /min Luis Carlos Jung [facility] 09-14-2022 11:00-0500 Mean blood pressure 84 mm[Hg] Luis Carlos Jung [facility] 09-14-2022 11:00-0500 Systolic blood pressure 120 mm[Hg] Luis Carlos Jung [facility] 09-14-2022 10:45-0500 Diastolic blood pressure 72 mm[Hg] Luis Carlos Jung [facility] 09-14-2022 10:45-0500 Heart rate 75 /min Luis Carlos Jung [facility] 09-14-2022 10:45-0500 Mean blood pressure 90 mm[Hg] Luis Carlos Jung [facility] 09-14-2022 10:45-0500 Systolic blood pressure 125 mm[Hg] Luis Carlos Jung [facility] 09-14-2022 09:30-0500 Blood Pressure Location Luis Carlos Jung [facility] 09-14-2022 09:30-0500 Body temperature 98.06 [degF] Luis Carlos Jung [facility] 09-14-2022 09:30-0500 Respiratory rate 16 /min Luis Carlos Jung [facility] 09-12-2022 20:45-0500 Hourly Rounding Luis Carlos Jung [facility] Comment on above: Result Comment: dischage instructions gi merly, pt verbalizes understanding. pt ambulates off unit with steady gait 09-12-2022 20:00-0500 Blood Pressure Location Luis Carlos Jung [facility] 09-12-2022 20:00-0500 Diastolic blood pressure 79 mm[Hg] Luis Carlos Jung [facility] 09-12-2022 20:00-0500 Heart rate 84 /min Luis Carlos Jung [facility] 09-12-2022 20:00-0500 Hourly Rounding Luis Carlos Jung [facility] 09-12-2022 20:00-0500 Mean blood pressure 95 mm[Hg] Luis Carlos Jung [facility] 09-12-2022 20:00-0500 Respiratory rate 18 /min Luis Carlos Jung [facility] 09-12-2022 20:00-0500 Systolic blood pressure 128 mm[Hg] Luis Carlos Jung [facility] 09-12-2022 19:45-0500 Hourly Rounding Luis Carlos Jung [facility] Comment on above: Result Comment: pt arrives to unit in eelchair with mother. Changes into gown independently, oriented to room, demonstrates ability to use call light, call light in reach 09-08-2022 08:32-0500 Blood Pressure Location Luis Carlos Jung [facility] 09-08-2022 08:32-0500 Body temperature 97.34 [degF] Luis Carlos Jung [facility] 09-08-2022 08:32-0500 Diastolic blood pressure 74 mm[Hg] Luis Carlos Jung [facility] 09-08-2022 08:32-0500 Heart rate 90 /min Luis Carlos Jung [facility] 09-08-2022 08:32-0500 Hourly Rounding Luis Carlos Jung [facility] Comment on above: Result Comment: PLAN OF CARE DISCUSSED 09-08-2022 08:32-0500 Mean blood pressure 90 mm[Hg] Luis Carlos Jung [facility] 09-08-2022 08:32-0500 Respiratory rate 18 /min Luis Carlos Jung [facility] 09-08-2022 08:32-0500 Systolic blood pressure 123 mm[Hg] Luis Carlos Jung [facility] 09-05-2022 22:00-0500 Body temperature 98.6 [degF] Kaylinn Dokken [facility] 09-05-2022 22:00-0500 Diastolic blood pressure 73 mm[Hg] Kaylinn Dokken [facility] 09-05-2022 22:00-0500 Mean blood pressure 85 mm[Hg] Kaylinn Dokken [facility] 09-05-2022 22:00-0500 Respiratory rate 27 /min Kaylinn Dokken [facility] 09-05-2022 22:00-0500 SaO2% (BldA) [Mass fraction] 100 % Kaylinn Dokken [facility] 09-05-2022 22:00-0500 Systolic blood pressure 108 mm[Hg] Kaylinn Dokken [facility] 09-05-2022 21:01-0500 Heart rate 78 /min Kaylinn Dokken [facility] 09-05-2022 21:01-0500 Respiratory rate 20 /min Kaylinn Dokken [facility] 09-05-2022 21:01-0500 SaO2% (BldA) [Mass fraction] 94 % Kaylinn Dokken [facility] 09-05-2022 21:00-0500 Diastolic blood pressure 77 mm[Hg] Kaylinn Dokken [facility] 09-05-2022 21:00-0500 Mean blood pressure 87 mm[Hg] Kaylinn Dokken [facility] 09-05-2022 20:10-0500 Body temperature 97.7 [degF] Gopi Rodriguez [facility] 09-05-2022 20:10-0500 Diastolic blood pressure 81 mm[Hg] Gopi Rodriguez [facility] 09-05-2022 20:10-0500 Heart rate 83 /min Gopi Rodriguez [facility] 09-05-2022 20:10-0500 Respiratory rate 22 /min randysdnadia Rodriguez [facility] 09-05-2022 20:10-0500 SaO2% (BldA) [Mass fraction] 99 % emilee Rodriguez [facility] 09-05-2022 20:10-0500 Systolic blood pressure 135 mm[Hg] emilee Rodriguez [facility] 08-31-2022 01:03-0500 Hourly Rounding Luis Carlos Fabiana [facility] Comment on above: Result Comment: pt ambulates off unit at this time w/ steady gait. 08-31-2022 00:58-0500 Hourly Rounding Luis Carlos Fabiana [facility] Comment on above: Result Comment: this nurse gives dischar ge instructions to pt at this time. pt verbalizes understanding of all education given. denies further needs. will continue to monitor. 08-31-2022 00:50-0500 Blood Pressure Location Luis Carlos Jung [facility] 08-31-2022 00:50-0500 Diastolic blood pressure 69 mm[Hg] Luis Carlos Jung [facility] 08-31-2022 00:50-0500 Heart rate 67 /min Luis Carlos Jung [facility] 08-31-2022 00:50-0500 Hourly Rounding Luis Carlos uJng [facility] Comment on above: Result Comment: pt up to bathroom at thi s time to void and change into clothes. walks w/ steady gait. 08-31-2022 00:50-0500 Mean blood pressure 83 mm[Hg] Luis Carlos Jung [facility] 08-31-2022 00:50-0500 Respiratory rate 18 /min Luis Carlos Jung [facility] 08-31-2022 00:50-0500 Systolic blood pressure 112 mm[Hg] Luis Carlos Jung [facility] 08-30-2022 21:52-0500 Body temperature 98.06 [degF] Luis Carlos Jung [facility] 08-30-2022 21:52-0500 Diastolic blood pressure 74 mm[Hg] Luis Carlos Jung [facility] 08-30-2022 21:52-0500 Heart rate 82 /min Luis Carlos Jung [facility] 08-30-2022 21:52-0500 Mean blood pressure 90 mm[Hg] Luis Carlos Jung [facility] 08-30-2022 21:52-0500 Respiratory rate 18 /min Luis Carlos Jung [facility] 08-30-2022 21:52-0500 Systolic blood pressure 123 mm[Hg] Luis Carlos Jung [facility] 08-30-2022 21:45-0500 Blood Pressure Location Luis Carlos Jung [facility] 08-22-2022 17:19-0500 Hourly Rounding Luis Carlos Jung [facility] Comment on above: Result Comment: MONITORS OFF; PT UP TO D RESS. DISCHARGE INSTRUCTIONS GIVEN WITH VERBAL UNDERSTANDING. 08-22-2022 15:14-0500 Diastolic blood pressure 71 mm[Hg] Luis Carlos Jung [facility] 08-22-2022 15:14-0500 Heart rate 87 /min Luis Carlos Jung [facility] 08-22-2022 15:14-0500 Hourly Rounding Luis Carlos Jung [facility] 08-22-2022 15:14-0500 Mean blood pressure 86 mm[Hg] Luis Carlos Jung [facility] 08-22-2022 15:14-0500 Respiratory rate 18 /min Luis Carlos Jung [facility] 08-22-2022 15:14-0500 Systolic blood pressure 115 mm[Hg] Luis Carlos Jung [facility] 08-18-2022 12:28-0400 Hourly Rounding Luis Carlos Jung [facility] Comment on above: Result Comment: pt verbalizes understand ing of discharge instructions. pt states she has an appointment sunday with dr jung. pt ambulated out of unit 08-18-2022 10:28-0400 Hourly Rounding Luis Carlos Jung [facility] Comment on above: Result Comment: pt c/o left lower abd pa in. states it is intermittent and sharp. encouraged pt to get up and empty bladder. pt states pain is still 7/10. dr jung on unit & at bedside 08-18-2022 09:09-0400 Hourly Rounding Luis Carlos Fabiana [facility] Comment on above: Result Comment: pt sitting up in bed wit h breakfast tray, visitor at bedside 08-18-2022 07:15-0400 Blood Pressure Location Luis Carlos Jung [facility] 08-18-2022 07:15-0400 Diastolic blood pressure 56 mm[Hg] Luis Carlos Jung [facility] 08-18-2022 07:15-0400 Heart rate 69 /min Luis Carlos Jung [facility] 08-18-2022 07:15-0400 Mean blood pressure 74 mm[Hg] Luis Carlos Montesinosten [facility] 08-18-2022 07:15-0400 Respiratory rate 16 /min Luis Carlos Jung [facility] 08-18-2022 07:15-0400 Systolic blood pressure 111 mm[Hg] Luis Carlos Jung [facility] 08-18-2022 05:58-0400 Blood Pressure Location Luis Carlos Jung [facility] 08-18-2022 05:58-0400 Diastolic blood pressure 59 mm[Hg] Luis Carlos Jung [facility] 08-18-2022 05:58-0400 Heart rate 67 /min Luis Carlos Jung [facility] 08-18-2022 05:58-0400 Mean blood pressure 77 mm[Hg] Luis Carlos Jung [facility] 08-18-2022 05:58-0400 Respiratory rate 16 /min Luis Carlos Jung [facility] 08-18-2022 05:58-0400 Systolic blood pressure 113 mm[Hg] Luis Carlos Jung [facility] 08-18-2022 04:06-0400 Blood Pressure Location Luis Carlos Jung [facility] 08-18-2022 04:06-0400 Body temperature 98.06 [degF] Luis Carlos Jung [facility] 08-18-2022 04:06-0400 Diastolic blood pressure 65 mm[Hg] Luis Carlos Jung [facility] 08-18-2022 04:06-0400 Heart rate 70 /min Luis Carlos Jung [facility] 08-18-2022 04:06-0400 Mean blood pressure 79 mm[Hg] Luis Carlos Jung [facility] 08-18-2022 04:06-0400 Respiratory rate 16 /min Luis Carlos Jung [facility] 08-18-2022 04:06-0400 Systolic blood pressure 107 mm[Hg] Luis Carlos Jung [facility] 08-13-2022 20:04-0400 [facility] Rounding [facility] Comment on above: Result Comment: Patient discharged off u nit. Discharge instructions were reviewed. Pt walks off unit without any notable signs or symtpoms of distress. 08-13-2022 19:45-0400 Hourly Rounding Luis Carlos Jung [facility] 08-13-2022 19:45-0400 Hourly Rounding Luis Carlos Jung [facility] Comment on above: Result Comment: Patient sitting in bed. BPP results reviewed with patient. Pt denied any additional questions. Call light within reach. 08-13-2022 18:12-0400 Heart rate 88 /min Luis Carlos Jung [facility] 08-13-2022 18:12-0400 Nursing Progress Note Reason Other: Pt updated on orders received from . jose understanding Luis Carlos Jung [facility] 08-13-2022 18:12-0400 SaO2% (BldA) [Mass fraction] 99 % Luis Carlos Fabiana [facility] 08-13-2022 17:33-0400 Body temperature 97.88 [degF] Luis Carlos Jung [facility] 08-13-2022 17:33-0400 Diastolic blood pressure 72 mm[Hg] Luis Carlos Jung [facility] 08-13-2022 17:33-0400 Mean blood pressure 88 mm[Hg] Luis Carlos Jung [facility] 08-13-2022 17:33-0400 Respiratory rate 18 /min Luis Carlos Jung [facility] 08-13-2022 17:33-0400 Systolic blood pressure 121 mm[Hg] Luis Carlos Jung [facility] 07-26-2022 10:22-0400 Hourly Rounding Luis Carlos Jung [facility] Comment on above: Result Comment: discharge instructions p rovided and pt signs discharge consent with RN witness. pt preparing for discharge, belly band placed on pt. RN offers wheelchair exit for discharge and pt declines and wants to walk down on own. 07-26-2022 10:22-0400 Promise to Return Luis Carlos Jung [facility] 07-26-2022 10:00-0400 Hourly Rounding Luis Carlos Jung [facility] 07-26-2022 10:00-0400 Promise to Return Luis Carlos Jung [facility] 07-26-2022 09:15-0400 Blood Pressure Location Luis Carlos Jung [facility] 07-26-2022 09:15-0400 Body temperature 97.7 [degF] Luis Carlos Jung [facility] 07-26-2022 09:15-0400 Diastolic blood pressure 62 mm[Hg] Luis Carlos Jung [facility] 07-26-2022 09:15-0400 Heart rate 70 /min Luis Carlos Jung [facility] 07-26-2022 09:15-0400 Hourly Rounding Luis Carlos Jung [facility] 07-26-2022 09:15-0400 Mean blood pressure 74 mm[Hg] Luis Carlos Fabiana [facility] 07-26-2022 09:15-0400 Respiratory rate 18 /min Luis Carlos Jung [facility] 07-26-2022 09:15-0400 Systolic blood pressure 97 mm[Hg] Luis Carlos Montesinosten [facility] 07-26-2022 09:00-0400 Promise to Return Luis Carlos Jung [facility] 07-26-2022 08:14-0400 Body temperature 98.06 [degF] Luis Carlos Jung [facility] 07-26-2022 08:14-0400 Diastolic blood pressure 66 mm[Hg] Luis Carlos Montesinosten [facility] 07-26-2022 08:14-0400 Heart rate 81 /min Luis Carlos Jung [facility] 07-26-2022 08:14-0400 Mean blood pressure 80 mm[Hg] Luis Carlos Montesinosten [facility] 07-26-2022 08:14-0400 Respiratory rate 18 /min Luis Carlos Jung [facility] 07-26-2022 08:14-0400 Systolic blood pressure 109 mm[Hg] Luis Carlos Montesinosten [facility] 07-17-2022 09:07-0400 Body temperature 97.88 [degF] Ko Dumas [facility] 07-17-2022 09:07-0400 Diastolic blood pressure 74 mm[Hg] Ko Dumas [facility] 07-17-2022 09:07-0400 Heart rate 85 /min Ko Dumas [facility] 07-17-2022 09:07-0400 Respiratory rate 16 /min Ko Dumas [facility] 07-17-2022 09:07-0400 SaO2% (BldA) [Mass fraction] 100 % Ko Dumas [facility] 07-17-2022 09:07-0400 Systolic blood pressure 117 mm[Hg] Ko Dumas [facility] 06-26-2022 21:38-0400 Blood Pressure Location Luis Carlos Jung [facility] 06-26-2022 21:38-0400 Diastolic blood pressure 61 mm[Hg] Luis Carlos Jung [facility] 06-26-2022 21:38-0400 Heart rate 83 /min Luis Carlos Jung [facility] 06-26-2022 21:38-0400 Hourly Rounding Luis Carlos Jung [facility] Comment on above: Result Comment: discharged ambulatory to po 06-26-2022 21:38-0400 Mean blood pressure 75 mm[Hg] Luis Carlos Jung [facility] 06-26-2022 21:38-0400 Respiratory rate 16 /min Luis Carlos Jung [facility] 06-26-2022 21:38-0400 Systolic blood pressure 102 mm[Hg] Luis Carlos Jung [facility] 06-26-2022 21:15-0400 Blood Pressure Location Luis Carlos Jung [facility] 06-26-2022 21:15-0400 Diastolic blood pressure 64 mm[Hg] Luis Carlos Jung [facility] 06-26-2022 21:15-0400 Heart rate 74 /min Luis Carlos Jung [facility] 06-26-2022 21:15-0400 Hourly Rounding Luis Carlos Jung [facility] 06-26-2022 21:15-0400 Mean blood pressure 78 mm[Hg] Luis Carlos Jung [facility] 06-26-2022 21:15-0400 Respiratory rate 16 /min Luis Carlos Jung [facility] 06-26-2022 21:15-0400 Systolic blood pressure 106 mm[Hg] Luis Carlos Jung [facility] 06-26-2022 21:05-0400 Body temperature 97.88 [degF] Luis Carlos Jung [facility] 06-26-2022 21:05-0400 Respiratory rate 18 /min Luis Carlos Jung [facility] 06-26-2022 21:00-0400 Hourly Rounding Luis Carlos Jung [facility] Comment on above: Result Comment: ice water given 06-19-2022 01:30-0400 Hourly Rounding Luis Carlos Jung [facility] Comment on above: Result Comment: updated on plan of care after speaking to dr jung. verb understanding and all d/c instructions provided. denies further needs/concerns. ambulates off unit without any further questions. 06-19-2022 01:00-0400 Hourly Rounding Luis Carlos Jnug [facility] Comment on above: Result Comment: rests in bed on phone. d enies any needs. denies any pain at this time or any pain or cramping since arrival. call light within reach 06-19-2022 00:15-0400 Hourly Rounding Luis Carlos Jung [facility] 06-18-2022 23:54-0400 Body temperature 97.88 [degF] Luis Carlos Jung [facility] 06-18-2022 23:54-0400 Diastolic blood pressure 65 mm[Hg] Luis Carlos Jung [facility] 06-18-2022 23:54-0400 Heart rate 76 /min Luis Carlos Jung [facility] 06-18-2022 23:54-0400 Mean blood pressure 81 mm[Hg] Luis Carlos Jung [facility] 06-18-2022 23:54-0400 Respiratory rate 18 /min Luis Carols Jung [facility] 06-18-2022 23:54-0400 Systolic blood pressure 112 mm[Hg] Luis Carlos Jung [facility] 06-18-2022 23:45-0400 Blood Pressure Location Luis Carlos Jung [facility] 05-01-2022 17:45-0400 Hourly Rounding Luis Carlos Jung [facility] Comment on above: Result Comment: reviewed disch inst and meds to take states understanding 05-01-2022 17:30-0400 Hourly Rounding Luis Carlos Jung [facility] 05-01-2022 17:23-0400 Body temperature 98.06 [degF] Luis Carlos Jung [facility] 05-01-2022 17:23-0400 Diastolic blood pressure 57 mm[Hg] Luis Carlos Jung [facility] 05-01-2022 17:23-0400 Heart rate 83 /min Luis Carlos Jung [facility] 05-01-2022 17:23-0400 Mean blood pressure 71 mm[Hg] Luis Carlos Jung [facility] 05-01-2022 17:23-0400 Respiratory rate 16 /min Luis Carlos Jung [facility] 05-01-2022 17:23-0400 Systolic blood pressure 99 mm[Hg] Luis Carlos Jung [facility] 05-01-2022 17:15-0400 Blood Pressure Location Luis Carlos Jung [facility] 05-01-2022 17:15-0400 Hourly Rounding Luis Carlos Jung [facility] 04-02-2022 13:30-0400 Hourly Rounding Luis Carlos Jung [facility] Comment on above: Result Comment: pt given discharge instr uctions at this time to follow up with fabiana sunday or states understanding to call office tomorrow for appointment 04-02-2022 12:30-0400 Hourly Rounding Luis Carlos Jung [facility] Comment on above: Result Comment: pt [facility] at this time denies discomfort at this time 04-02-2022 11:30-0400 Hourly Rounding Luis Carlos Jung [facility] Comment on above: Result Comment: pt sitting in bed at thi s time denies needs or discomfort 04-02-2022 06:28-0400 Body temperature 99.68 [degF] Luis Carlos Jung [facility] 04-02-2022 06:28-0400 Diastolic blood pressure 68 mm[Hg] Luis Carlos Jung [facility] 06-19-2022 06:28-0400 Heart rate 89 /min Luis Carlos Jung [facility] 04-02-2022 06:28-0400 Heart rate 86 /min Luis Carlos Jung [facility] 04-02-2022 06:28-0400 Mean blood pressure 83 mm[Hg] Luis Carlos Jung [facility] 04-02-2022 06:28-0400 Respiratory rate 20 /min Luis Carlos Jung [facility] 04-02-2022 06:28-0400 SaO2% (BldA) [Mass fraction] 98 % Luis Carlos Jung [facility] 04-02-2022 06:28-0400 Systolic blood pressure 114 mm[Hg] Luis Carlos Jung [facility] 03-23-2022 21:08-0400 Hourly Rounding Luis Carlos Jung [facility] Comment on above: Result Comment: Patient ambulatory off u nit. No signs or symptoms of distress noted. 03-23-2022 20:35-0400 Hourly Rounding Luis Carlos Jung [facility] Comment on above: Result Comment: Patient updated on plan of care. Verbalizes understanding. Call light in reach. 03-23-2022 19:49-0400 Blood Pressure Location Luis Carlos Jung [facility] 03-23-2022 19:49-0400 Body temperature 98.78 [degF] Luis Carlos Jung [facility] 03-23-2022 19:49-0400 Diastolic blood pressure 66 mm[Hg] Luis Carlos Jung [facility] 03-23-2022 19:49-0400 Heart rate 69 /min Luis Carlos Jung [facility] 03-23-2022 19:49-0400 Hourly Rounding Luis Carlos Jung [facility] Comment on above: Result Comment: Patient arrives on unit. 03-23-2022 19:49-0400 Mean blood pressure 79 mm[Hg] Luis Carlos Jung [facility] 03-23-2022 19:49-0400 Respiratory rate 16 /min Luis Carlos Jung [facility] 03-23-2022 19:49-0400 Systolic blood pressure 106 mm[Hg] Luis Carlos Jung [facility] 10-14-2020 13:15-0500 Pulse (Heart Rate) 74 /min [facility] 10-14-2020 13:15-0500 Pulse Oximetry 98 % [facility] 10-14-2020 13:15-0500 Respiratory Rate 16 /min [facility] 10-14-2020 13:00-0500 BP Diastolic 74 mm[Hg] [facility] 10-14-2020 13:00-0500 BP Systolic 123 mm[Hg] [facility] 10-14-2020 10:13-0500 BMI (Body Mass Index) 34.33 kg/m2 [facility] 10-14-2020 10:13-0500 Body Temperature 97.81 [degF] [facility] 10-14-2020 10:13-0500 Body weight 90.72 kg [facility] 10-14-2020 10:13-0500 Height 162.6 cm [facility] 08-09-2020 20:33-0400 BP Diastolic 81 mm[Hg] [facility] [place] 08-09-2020 20:33-0400 BP Systolic 122 mm[Hg] [place] 08-09-2020 20:33-0400 Pulse (Heart Rate) 78 /min [place] 08-09-2020 20:33-0400 Respiratory Rate 16 /min [place] 08-09-2020 19:03-0400 BMI (Body Mass Index) 39.48 kg/m2 Bakari Valente [employer] [place], [place] 08-09-2020 19:03-0400 Body Temperature 98.29 [degF] Bakari Albarado [employer] [place], [place] 08-09-2020 19:03-0400 Body weight 104.33 kg Bakari Valente [employer] [place], [place] 08-09-2020 19:03-0400 Height 162.6 cm Bakari Albarado [employer] [place], [place] 08-09-2020 19:03-0400 Pulse Oximetry 98 % Bakari Albarado [employer] [place], [place] Encounters Encounter Date Encounter Type Care Provider Facility Start: 11-27-2023 Bamboo flowsheet Rashaun Perry D O Work Phone: [facility] Start: 11-27-2023 Bamboo flowsheet Rashaun Perry D O Work Phone: [facility] Start: 11-27-2023 Clinisync Result Encounter Rashaun Perry DO Work Phone: [facility] Unsolicited Start: 11-27-2023 End: 11-27-2023 ambulatory RASHAUN PERRY Not Available Start: 11-27-2023 End: 11-27-2023 Office outpatient visit 15 minutes Rashaun Perry DO Work Phone: [facility] Comment on above: Third trimester preg anh; Hypothyroidism (acquired) (CMS/HCC) Start: 11-20-2023 End: 11-20-2023 ambulatory RASHAUN PERRY Not Available Start: 11-20-2023 End: 11-20-2023 Office outpatient visit 15 minutes Rashaun Perry DO Work Phone: [facility] Comment on above: Third trimester preg anh Start: 11-06-2023 End: 11-06-2023 ambulatory RASHAUN PERRY Not Available Start: 11-04-2023 End: 11-04-2023 OB Triage Rashaun R PERRY [facility] Start: 10-31-2023 End: 10-31-2023 ambulatory RASHAUN RODRIGUEZO Not Available Start: 10-18-2023 End: 10-18-2023 ambulatory DODIE MILLER Not Available Start: 10-03-2023 End: 10-03-2023 ambulatory DODIE MILLER Not Available Start: 09-12-2023 End: 09-12-2023 ambulatory RASHAUN RODRIGUEZO Not Available Start: 08-23-2023 End: 08-23-2023 Lab Drop off ZORAN MYRICK [facility] Start: 08-23-2023 End: 08-24-2023 ambulatory SLEEPING CAR PORTER ZORAN MYRICK Facility:[facility] Start: 08-19-2023 End: 09-14-2023 Pre-admission assessment Julia Haywood [facility] Start: 08-18-2023 End: 08-18-2023 ambulatory DO Julia Haywood Facility:[facility] Start: 08-18-2023 End: 08-18-2023 OB Triage Julia Haywood [facility] Start: 07-25-2023 End: 07-25-2023 Emergency department patient visit Kristian Guillermo Facility:[facility] Start: 07-25-2023 End: 07-25-2023 Emergency department patient visit Kristian Guillermo [facility] Start: 06-28-2023 End: 06-29-2023 ambulatory Roverto V. Spasic Facility:[facility] Start: 06-28-2023 End: 06-28-2023 Patient encounter procedure Roverto V. Spasic [facility] Start: 06-14-2023 End: 06-14-2023 Emergency department patient visit Kristian Guillermo Facility:[facility] Start: 06-14-2023 End: 06-14-2023 Emergency department patient visit Kristian Guillermo [facility] Start: 06-12-2023 End: 06-13-2023 ambulatory Luis Carlos Jung Facility:[facility] Start: 06-12-2023 End: 06-12-2023 Patient encounter procedure Luis Carlos Jung [facility] Start: 05-21-2023 End: 05-22-2023 Emergency department patient visit DO Gopi Rodriguez Facility:[facility] Start: 05-21-2023 End: 05-21-2023 Emergency department patient visit Gopi Rodriguez [facility] Start: 04-30-2023 End: 05-01-2023 ambulatory Luis Carlos Jung Facility:[facility] Start: 04-30-2023 End: 04-30-2023 Lab Drop off Luis Carlos Jung [facility] Start: 04-30-2023 End: 05-01-2023 ambulatory Luis Carlos Jung Facility:[facility] Start: 04-30-2023 End: 04-30-2023 Patient encounter procedure Luis Carlos Jung [facility] Start: 04-26-2023 End: 04-26-2023 Emergency department patient visit Laura Charles Bert Facility:[facility] Start: 04-26-2023 End: 04-26-2023 Emergency department patient visit Laura Araceli Bert [facility] Start: 01-31-2023 End: 01-31-2023 Emergency department patient visit Kristian Guillermo Facility:[facility] Start: 01-31-2023 End: 01-31-2023 Emergency department patient visit Kristian Guillermo [facility] Start: 09-24-2022 End: 09-27-2022 Evaluation and management of inpatient Luis Carlos Jung Facility:[facility] Start: 09-22-2022 End: 09-22-2022 ambulatory Luis Carlos Rochelle Jung Facility:[facility] Start: 09-22-2022 End: 09-22-2022 OB Triage Luis Carlos Byrd Fabiana [facility] Start: 09-20-2022 End: 09-20-2022 ambulatory Luis Carlos Rochelle Jung Facility:[facility] Start: 09-20-2022 End: 09-20-2022 OB Triage Luis Carlos Rochelle Jung [facility] Start: 09-19-2022 End: 09-19-2022 ambulatory Jj MIKE Facility:[facility] Start: 09-19-2022 End: 09-19-2022 OB Triage Jj MIKE [facility] Start: 09-14-2022 End: 09-14-2022 ambulatory Luis Carlos Rochelle Jung Facility:[facility] Start: 09-14-2022 Emergency department patient visit DO Gopi Rodriguez Facility:[facility] Start: 09-14-2022 End: 09-14-2022 OB Triage Luis Carlos Byrd Fabiana [facility] Start: 09-12-2022 End: 09-12-2022 ambulatory Luis Carlos Rochelle Jung Facility:[facility] Start: 09-12-2022 End: 09-12-2022 OB Triage Luis Carlos Byrd Fabiana [facility] Start: 09-08-2022 End: 09-08-2022 ambulatory Luis Carlos Byrd Fabiana Facility:[facility] Start: 09-08-2022 End: 09-08-2022 OB Triage Luis Carlos Rochelle Jung [facility] Start: 09-06-2022 End: 12-06-2022 ambulatory Luis Carlos Rochelle Jung Facility:[facility] Start: 09-05-2022 End: 09-06-2022 Emergency department patient visit DO Gopi Rodriguez Facility:[facility] Start: 09-05-2022 End: 09-05-2022 Emergency department patient visit Gopi Rodriguez [facility] Start: 09-05-2022 End: 12-05-2022 Patient encounter procedure SELF REFERRAL [facility] Start: 09-04-2022 End: 09-05-2022 ambulatory Luis Carlos Byrd Fabiana Facility:[facility] Start: 09-04-2022 End: 09-04-2022 Lab Drop off Luis Carlos Byrd Fabiana [facility] Start: 08-30-2022 End: 08-31-2022 ambulatory Luis Carlos Byrd Fabiana Facility:[facility] Start: 08-30-2022 End: 08-31-2022 OB Triage Luis Carlos Rochelle Jung [facility] Start: 08-22-2022 End: 08-22-2022 OB Triage Luis Carlos Byrd Fabiana [facility] Start: 08-18-2022 End: 08-18-2022 OB Triage Luis Carlos Byrd Fabiana [facility] Start: 08-13-2022 End: 08-13-2022 OB Triage Luis Carlos Rochelle Jung [facility] Start: 07-26-2022 End: 07-26-2022 OB Triage Luis Carlos Jung [facility] Start: 07-17-2022 End: 07-17-2022 Emergency department patient visit Ko Dumas [facility] Start: 06-28-2022 End: 06-28-2022 Patient encounter procedure Luis Carlos Byrd Fabiana [facility] Start: 06-26-2022 End: 06-26-2022 OB Triage Luis Carlos Byrd Fabiana [facility] Start: 06-20-2022 End: 07-15-2022 Pre-admission assessment Luis Carlos Byrd Fabiana [facility] Start: 06-18-2022 End: 06-19-2022 OB Triage Luis Carlos Jung [facility] Start: 05-02-2022 End: 06-15-2022 Pre-admission assessment THANG MILLAN [facility] Start: 05-01-2022 End: 05-01-2022 OB Triage Luis Carlos Byrd Fabiana [facility] Start: 04-02-2022 End: 04-02-2022 OB Triage Luis Carlos Byrd Fabiana [facility] Start: 03-23-2022 End: 03-23-2022 OB Triage Luis Carlos Byrd Fabiana [facility] Start: 03-16-2022 End: 03-16-2022 Patient encounter procedure Luis Carlos Jung [facility] Start: 02-15-2022 End: 02-15-2022 Lab Drop off Luis Carlos Jung [facility] Start: 02-23-2021 End: 02-23-2021 Patient encounter procedure Martha Webb MD Work Phone: [facility] Start: 02-23-2021 Results Only Martha Webb MD Work Phone: Gastroenterology Start: 10-14-2020 End: 10-14-2020 Emergency department patient visit PHYSICIAN NO [facility] Start: 10-14-2020 End: 10-14-2020 Emergency department patient visit Regine Chow Work Phone: [facility] Emergency Department Comment on above: Vertigo (Primary Dx) Start: 08-09-2020 End: 08-09-2020 Emergency department patient visit [facility] Start: 08-09-2020 End: 08-09-2020 Emergency department patient visit [facility] Work Phone: [facility] ED Comment on above: Contusion of right k nee, initial encounter (Primary Dx); Contusion of multiple sites of right shoulder and upper arm, initial encounter Start: 07-23-2017 End: 07-23-2017 Emergency department patient visit NKECHI TORRES [facility] Guerra Procedures Date Procedure Procedure Detail Performing Clinician Start: 11-27-2023 ALL THYROID STIM HORMONE Rashaun Perry DO Work Phone: Start: 11-27-2023 Urnls dip stick/tablet rgnt non-auto w/o micrscp Rashaun Perry DO Work Phone: Start: 11-20-2023 Urnls dip stick/tablet rgnt non-auto w/o micrscp Rashaun Perry DO Work Phone: Start: 04-30-2023 Microscopic observation [Identifier] in Cervix by Cyto stain Rashaun Amador DO Work Phone: Start: 02-23-2021 PT ED PATIENT INFORMATION Martha Webb MD Work Phone: Start: 10-14-2020 CT of head without contrast Susanluisa Coreylorochelle Work Phone: Start: 10-14-2020 LIGHT BLUE TOP Regine Chow Work Phone: Start: 10-14-2020 LIGHT GREEN TOP Regine Chow Work Phone: Start: 10-14-2020 Basic metabolic 1998 panel - Serum or Plasma Susan Margarita Tunde Work Phone: Start: 10-14-2020 Complete blood count [...] 05-12-2028 Tetanus vaccination Tetanus: Every 1 0yrs [facility] Start: 04-30-2028 Screening for malign ant neoplasm of cervix [facility] Start: 01-22-2024 End: 01-22-2024 Patient encounter procedure 01/22/2024 8:[address] [facility] [address] [place] [id number] Rashaun Amador, DO [address] [place] [address] [facility] Start: 12-04-2023 End: 12-04-2023 Patient encounter procedure 12/04/2023 9:[address] [facility] [address] [place] [id number] Rashaun Amador, DO [address] [place] [address] [facility] Start: 11-27-2023 End: 11-27-2024 Strep B DNA probe, amplification Strep B DNA probe, amplification Lab Routine Third trimester Expected: 11/27/2023 (Approximate), Expires: 11/27/2024 [facility] Work Phone: Comment on above: Expected: 11/27/2023 (Approximate), Expires: 11/27/2024 Start: 11-27-2023 End: 11-27-2023 Patient encounter procedure [facility] Comment on above: Arrived Start: 11-21-2023 End: 11-21-2023 Professional / ancillary services management 11/21/2023 8:30 AM EST Ancillary Procedure [facility] [address] [place] [id number] [facility] Start: 06-15-2021 Influenza vaccination INFLUENZ A (Season Ended) [facility] Start: 06-15-2020 Influenza vaccination Flu vaccine (# 1) [place], [place] Start: 2014 PAP TESTING PAP TESTING [facility] Start: 2014 Screening for malign ant neoplasm of cervix Cervical cancer screen [place], [place] Start: 2012 DTaP/Tdap/Td vaccine (1 - Tdap) DTaP/Tdap/Td vaccine (1 - Tdap) [place] Start: 2012 Urine microalbumin profile DTAP,TDAP,TD (1 - Tdap) [facility] Start: 2011 Hepatitis C antibody , confirmatory test Hepatitis C Screening [facility] Start: 2011 HEPATITIS C SCREENING HEPATITIS C SC REENING [facility] Start: 2011 HIV SCREENING HIV SCREENING [facility] Start: 2008 HIV screening [place], [place] Start: 2005 Adolescent depressio n screening assessment [facility] Start: 2004 HPV vaccine (1 - 2-d ose series) HPV vaccine (1 - 2-dose series) [place] Start: 1996 History and physical examination, annual for health maintenance Wellness Visit [facility] Start: 1994 Varicella vaccine (1 of 2 - 2-dose childhood series) Varicella vaccine (1 of 2 - 2-dose childhood series) [place] Start: 1993 Screening for malign ant neoplasm of cervix Pap Smear [facility] PT ED PATIENT INFORMATION PT ED PATIENT INFORMATION Other 02/23/2021 [facility] Immun[facility] Immunization Date Immunization Notes Care Provider Fa cility 08-18-2023 influenza, seasonal, injectable Julia Nataprawira [facility] 09-25-2022 influenza, seasonal, injectable SELF REFERRAL [facility] Comment on above: Early/Late Reason: E isaac/Late Reason: Nursing Judgment 01-28-2021 COVID-19, mRNA, LNP- S, PF, 30 mcg/0.3 mL dose; Translations: [Pfizer-BioNTech COVID-19 Vaccine] Luis Carlos Jung [facility] Comment on above: Reason for Medicatio n: Prophylaxis Reason for Medicatio n: Prophylaxis 12-31-2020 COVID-19, mRNA, LNP- S, PF, 30 mcg/0.3 mL dose; Translations: [Pfizer-BioNTech COVID-19 Vaccine] Luis Carlos Jung [facility] Comment on above: Reason for Medicatio n: Prophylaxis Reason for Medicatio n: Prophylaxis 05-12-2018 tetanus toxoid, reduced diphtheria toxoid, and acellular pertussis vaccine, adsorbed; Translations: [Adacel (Tdap)] Luis Carlos Jung [facility] Payers Date Payer Category Payer Medicaid [employer] [place] [employer] [id number] 2022-Present [address] [place] [id number] 2019 Unknown [id number] 2019 Unknown [id number] [id number] 1993 Unknown [id number] 2.16.840.1.693988.3.579.2.173 1993 Unknown [id number] 2.16.840.1.984744.3.579.2.903 1993 Unknown [id number] 2.16.840.1.155090.3.579.2. 1993 Unknown [id number] 2.16.840.1.148002.3.579.2. 1993 Unknown [id number] 2.16.840.1.449769.3.579.2. 1993 Unknown [id number] 2.16.840.1.075458.3.579.2 1993 Unknown [id number] 2.16.840.1.411217.3.579.2. 1993 Unknown [id number] 2.16.840.1.390309.3.579.2 1993 Unknown [id number] 2.16.840.1.008142.3.579.2 1993 Unknown [id number] 2.16.840.1.267322.3.579.2 1993 Unknown [id number] 2.16.840.1.999042.3.579.2 1993 Unknown [id number] 2.16.840.1.539095.3.579.2 1993 Unknown [id number] 2.16.840.1.028573.3.579.2 1993 Unknown [id number] 2.16.840.1.872581.3.579.2 1993 Unknown [id number] 2.16.840.1.791082.3.579.2. 1993 Unknown [id number] 2.16.840.1.878315.3.579.2 1993 Unknown [id number] 2.16.840.1.772115.3.579.2 1993 Unknown [id number] 2.16.840.1.523608.3.579.2 1993 Unknown [id number] 2.16.840.1.109115.3.579.2.727 1993 Unknown [id number] 2.16.840.1.483804.3.579.2.727 1993 Unknown [id number] 2.16.840.1.569224.3.579.2.727 1993 Unknown [id number] 2.16.840.1.427240.3.579.2.727 1993 Unknown [id number] 2.16.840.1.244438.3.579.2.727 1993 Unknown [id number] 2.16.840.1.657493.3.579.2.727 1993 Unknown [id number] 2.16.840.1.289630.3.579.2.727 1993 Unknown [id number] 2.16.840.1.092336.3.579.2.727 1993 Unknown [id number] 2.16.840.1.105366.3.579.2.1259 1993 Unknown [id number] 2.16.840.1.288423.3.579.2.1259 1993 Unknown [id number] 2.16.840.1.237421.3.579.2.1259 1993 Unknown [id number] 2.16.840.1.203012.3.579.2.1259 1993 Unknown [id number] 2.16.840.1.369603.3.579.2.1259 1993 Unknown [id number] 2.16.840.1.332937.3.579.2.1259 1993 Unknown [id number] 2.16.840.1.263124.3.579.2.1259 1993 Unknown [id number] 2.16.840.1.057282.3.579.2.1259 Social History Date Type Detail Facility Start: 08-09-2020 End: 10-14-2020 Tobacco smoking status NHIS Current every day smoker [place] Start: 08-09-2020 End: 10-14-2020 Tobacco use and exposure Never used [place] Start: 10-14-2020 Alcohol intake Ex-drinker (finding) [facility] Start: 1993 Sex Assigned At Not on file M [place] Exposure to SARS-CoV -2 (event) Not sure [place] Start: 08-09-2020 Cigarettes smoked current (pack per day) - Reported [place] Start: 08-09-2020 Alcohol intake Lifetime non-d val (finding) [place] Start: 08-09-2020 History SDOH Alcohol Frequency 1 [place] Start: 07-06-2021 End: 08-18-2022 Tobacco smoking status Light tobacco smoker (finding) [facility] Sex Assigned At Female [facility] Tobacco [facility] Comment on above: current current denies Start: 06-28-2023 Tobacco smoking status Ex-smoker (fi nding) [facility] Comment on above: current Tobacco smoking status Never [facility] Comment on above: current Tobacco smoking status No Smokin g Status Entered [facility] Tobacco smoking stat [facility] Tobacco smoking consumption unknown [facility] Start: 04-02-2023 [facility] Start: 1995 Sex Assigned At Female [facility] Start: 07-03-2023 Gender identity Identifies as female gender (finding) [facility] Start: 07-03-2023 Sexual orientation Heterosexual (fin ding) [facility] Goals Date Patient Goal Desired Activity /State Personal health goal Functional Status Date Assessment Result Facility 11-04-2023 Functional Status N/A [facility] 08-18-2023 Functional Status N/A [facility] 07-25-2023 Functional Status N/A [facility] 06-28-2023 Functional Status N/A [facility] 06-14-2023 Functional Status N/A [facility] 05-21-2023 Functional Status N/A [facility] 04-26-2023 Functional Status N/A [facility] 01-31-2023 Functional Status N/A [facility] 09-22-2022 Functional Status N/A [facility] 09-20-2022 Functional Status N/A [facility] 09-19-2022 Functional Status N/A [facility] 09-14-2022 Functional Status N/A [facility] 09-12-2022 Functional Status N/A [facility] 09-08-2022 Functional Status N/A [facility] 09-05-2022 Functional Status Yes [facility] 08-30-2022 Functional Status N/A [facility] 08-22-2022 Functional Status N/A [facility] 08-18-2022 Functional Status N/A [facility] 08-13-2022 Functional Status N/A [facility] 07-26-2022 Functional Status N/A [facility] 07-17-2022 Functional Status N/A [facility] 06-26-2022 Functional Status N/A [facility] 06-18-2022 Functional Status N/A [facility] 05-01-2022 Functional Status N/A [facility] 04-02-2022 Functional Status N/A [facility] Clinical Notes 03-10-2021 to 11-27-2023 Althea Suggs LPN - 11/27/2023 8:30 AM Alessandro Suggs LPN - 11/20/2023 11:10 AM EST Annette Date & Type Note Facility 11-27-2023 History [...] nursing note reviewed. Exam conducted with a flap maker present. Vitals: There is no height or weight on file to calculate BMI. BP: 114/78 Patient's last menstrual period was 03/19/2023. Assessment/Plan Encounter Diagnoses Name Primary? Third trimester Hypothyroidism (acquired) (CMS/HCC) Patient is doing well but has complaints [...] Rashaun Amador DO documented in this encounter [facility] 11-20-2023 History of Present illness Narrative Reason [...] nursing note reviewed. Exam conducted with a flap maker present. Vitals: There is no height or [...] Rashaun Amador DO documented in this encounter [facility] 11-04-2023 Evaluation + Plan note Diagnostic Tests PendingUrine Culture 11/04/23 [facility] 11-04-2023 Hospital Discharge instructions Follow Up Care 11/04/2023 07:55:34 With:Rashaun AMADOR Address: [address] [place] [address]- Business (1) When:11/06/2023 Comments:Call for any problems.Appointment has already been scheduledCall physician if symptoms worsenPlease call if you need to rescheduleReturn for contractions closer, longer, harderReturn for decreased movementReturn if ruptured membranes or vaginal bleeding [facility] 08-23-2023 Evaluation + Plan note Diagnostic Tests PendingT3 Total 08/23/23 [facility] 08-18-2023 Note The following Patien t Education Materials have been given to the patient: EducationMaterial [facility] 08-18-2023 Hospital Discharge instructions Patient Education 08/18/2023 08:14:46 Second Trimester of , Pwar-lb-Otwp Second Trimester of The second trimester of [...] Follow these instructions at home: Medicines Take vfrh-hst-gtjdlkm and prescription medicines only as told by [...] a counselor. Where to find more information [place] Association: americanpregnancy.org [employer]st[employer]ians [employer] Gynecologists: www.acog.org Office [...] provider. Document Revised: 03/09/2021 Document Reviewed: 01/13/2021 [employer] Patient Education 2022 [employer]vi[employer]o. [facility] 07-25-2023 Evaluation + Plan note Extrac [...] Diagnostic Tests Pending * Urine Culture 07/25/23 [facility]10-11-2023 Hospital Discharge instructions Patient Education 07/25/2023 [...] to keep your urine pale yellow. Take obbo-wop-gpytbxc and prescription medicines only as told by [...] provider. Document Revised: 06/14/2021 Document Reviewed: 06/14/2021 [employer] Patient Education 2022 Adviqo. Follow Up Care 07/25/2023 08:14:26 With:Luis Carlos Jung Address: [address] [address] [facility] (1) When:07/28/2023 09:56:27 [facility]09-14-2023 Evaluation + Plan note Diagnostic Tests Pending * Urine Culture 06/28/23 [facility]09-14-2023 Hospital Discharge instructions Patient Education 06/28/2023 11:39:14 Urinary Tract Infection, Adult, Slpx-mc-Rgqy Urinary Tract Infection, Adult A urinary tract [...] Follow these instructions at home: Medicines Take aobz-xac-vapmdiq and prescription medicines only as told by [...] provider. Document Revised: 05/13/2021 Document Reviewed: 05/13/2021 [employer] Patient Education 2022 Adviqo. 06/28/2023 11:39:14 Urinary Tract Infection, Adult, Vdlb-gg-Zhsa Urinary Tract Infection, Adult A urinary tract [...] Follow these instructions at home: Medicines Take nbme-nko-mjkkdnc and prescription medicines only as told by [...] provider. Document Revised: 05/13/2021 Document Reviewed: 05/13/2021 [employer] Patient Education 2022 Adviqo. Follow Up Care 06/28/2023 10:22:58 With:Fabiana MARION, Luis Carlos Byrd, SAMPSON Address: [facility] [address] [place] [id number]- When: Unknown [facility] 08-31-2023 Evaluation + Plan noteExtracted from: Title:ED Note Author:Jos Ugalde PA-C te:06/14/23 1. Abdominal pain (R10.9: Un specified abdominal pain) Orders: ABO/Rh Automated Diff Basic Metabolic Panel Beta hCG Quantitative CBC w/ Auto Diff eGFR Extra Blue Tube Extra SST Tube Hepatic Function Panel Lipase Level UA With Cult Reflex US 1st Trimester [facility]08-08-2023 Hospital Discharge instructions Patient Education 05/21/2023 23:23:44 Nonspecific Chest Pain, Adult, Iayi-vg-Ukue Nonspecific Chest Pain Chest pain can be [...] Follow these instructions at home: Medicines Take ndcu-snq-iizlrhq and prescription medicines only as told by [...] a heart-healthy diet. A diet and nutrition club ambassador (dietitian) can help you to learn healthy [...] provider. Document Revised: 12/15/2021 Document Reviewed: 12/15/2021 [employer] Patient Education 2022 Adviqo. 05/21/2023 23:23:44 Nausea and Vomiting, Adult, Brdj-gy-Ycqs Nausea and Vomiting, Adult Nausea is feeling [...] fruit juice). ?Low-calorie sports drinks. Eat bland, qabp-em-cjphrk foods in small amounts as you are able, such as: ?Bananas. ?Applesauce. ?Rice. ?Low-fat (lean) meats. ?[place]. ?Crackers. Avoid drinking fluids that have a lot of sugar or caffeine in them. This includes energy drinks, sports drinks, and soda. Avoid alcohol. Avoid spicy or fatty foods. General instructions Take mmcn-yav-lwailbq and prescription medicines only as told by your doctor. Drink enough fluid to keep your pee (urine) pale yellow. Wash your hands often with soap and water for at least 20 seconds. If you cannot use soap and water, use hand drying machine operator package yarns. Make sure that everyone in your home [...] your doctor about eating and drinking. Take wcqm-zwp-qjpgrjr and prescription medicines only as told by your doctor. Contact your doctor if your symptoms get worse or you have new symptoms. Keep all follow-up visits. This information is not intended to replace advice given to you by your health care provider. Make sure you discuss any questions you have with your health care provider. Document Revised: 04/07/2022 Document Reviewed: 04/07/2022 [employer] Patient Education 2022 Adviqo. 05/21/2023 23:23:44 Abdominal Pain During , Kpgf-cy-Hqvy Abdominal Pain During Belly (abdominal) pain is [...] keep your pee (urine) pale yellow. Take xtqf-lsi-ygyjgkn and prescription medicines only as told by [...] provider. Document Revised: 06/14/2021 Document Reviewed: 06/14/2021 [employer] Patient Education 2022 Adviqo. Follow Up Care 05/21/2023 20:38:52 With:Luis Carlos Jung Address: [address], [facility] [place] [address]- Business (1) When:05/24/2023 Comments:Take the Pepcid once daily until you have completed the course. You can use the Zofran every 6 hours as needed for nausea and vomiting. Please follow-up with your primary care doctor next 2 to 3 days. Please return to the ED for any new or worsening symptoms. [facility]08-07-2023 Evaluation + Plan noteExtracted from: Title:ED [...] day(s), # 15 cap(s), Refills(s) 0, Pharmacy: [facility], 162.6, cm, 05/21/23 20:50:00 EDT, Height/Length Dosing, 75.3, kg, 05/21/23 20:50:00 EDT, Weight Dosing famotidine, 20 mg = 2 mL, Soln-IV, IV Push, Once, Stop date 05/21/23 21:00:00 EDT, STAT, Start date 05/21/23 21:00:00 EDT, 05/21/23 21:00:00 EDT famotidine, 20 mg = 1 tab(s), Oral, Daily, # 14 tab(s), Refills(s) 0, Pharmacy: [facility], 162.6, cm, 05/21/23 20:50:00 EDT, Height/Length Dosing, 75.3, kg, 05/21/23 20:50:00 EDT, Weight Dosing ondansetron, 4 mg = 2 mL, Injection, IV Push, Once, Stop date 05/21/23 21:00:00 EDT, STAT, Start date 05/21/23 21:00:00 EDT, 05/21/23 21:00:00 EDT ondansetron, 4 mg = 1 tab(s), Oral, q8hr, # 12 tab(s), Refills(s) 0, Pharmacy: [facility], 162.6, cm, 05/21/23 20:50:00 [...] UA With Cult Reflex US 1st Trimester [facility]07-17-2023 Evaluation + Plan note Diagnostic Tests Pending * PAP [id number] 04/30/23 * Urine Culture 04/30/23 [facility]07-17-2023 Evaluation + Plan note Diagnostic Tests Pending * RPR with Conf Rfx 04/30/23 * HIV Screen 4th Generation wRfx 04/30/23 * Rubella Antibody IgG 04/30/23 * Hepatitis B Surface Antigen 04/30/23 [facility]07-13-2023 Evaluation + Plan noteExtracted from: Title:ED Note Author:Jos Ugalde PA-C te:04/26/23 Abdominal pain (R10.9: Unspe cified abdominal pain) (Z34.90: Encounter for supervision of normal , unspecified, unspecified trimester) Orders: Beta hCG Quantitative Extra Lav Tube Extra SST Tube US 1st Trimester US Transvaginal [facility]07-13-2023 Hospital Discharge instructions Patient Education 04/26/2023 [...] to keep your urine pale yellow. Take rxep-trr-wmykbvy and prescription medicines only as told by [...] Document Reviewed: 06/14/2021 Elsevier Patient Education 2022 Adviqo. Follow Up Care 04/26/2023 08:52:22 With:Luis Carlos Jung Address: [address] [facility] [place] [address] Business (1) When:04/29/2023 10:58:02 [facility]04-19-2023 Evaluation + Plan noteExtracted from: Title:ED [...] Head eGFR Oxygen Therapy PT & PTT [facility]04-19-2023 Hospital Discharge instructions Patient Education 01/31/2023 [...] Follow these instructions at home: Medicines Take ezck-nhh-pohbekx and prescription medicines only as told by your health care provider. Ask your health care provider if the medicine prescribed to you: ?Requires you to avoid driving or using heavy machinery. ?Can cause constipation. You may need to take these actions to prevent or treat constipation: ?Drink enough fluid to keep your urine pale yellow. ?Take dfhv-kra-xkurouo or prescription medicines. ?Eat foods that are [...] provider. Document Revised: 01/23/2020 Document Reviewed: 11/13/2019 [employer] Patient Education 2022 Adviqo. Follow Up Care 01/31/2023 09:42:02 With:THANG MILLAN Address: [address] [place], [place] [id number] [facility] (1) When:02/03/2023 11:57:07 Comments:Call the office [...] fever, or any new or worsening symptoms. [facility]12[facility]16-20[facility] Comment: Electronically Signed By: Luis Carlos Jung MD\.br\Date and Time Signed: 09/29/22 09:25 [id number] [facility] Comment on above:Result Comment: Electronically Signed By: Luis Carlos Jung MD\.br\Date and Time Signed: 09/29/22 09:25 [id number] NoteThe following Patient Education Materials have been given to the patient: [facility]12-09-2022 NoteThe following Patient Education Materials have been given to the patient: [facility]12-09-2022 Hospital Discharge instructions Follow Up Care 09/22/2022 15:11:14 With:Luis Carlos Jung Address: [address] [place] [id number] Business (1) When:09/24/2022 20:30:00 Comments:Appointment has already been scheduledCall for any problems.Call for fever > 100.5 FCall for severe abdominal painCall physician for heavy vaginal bleedingCall physician if symptoms worsenReturn for contractions closer, longer, harderReturn for decreased movementReturn if ruptured membranes or vaginal bleedingCall at 7:30 pm Sunday to confirm induction at 8:30 [facility]12-07-2022 NoteThe following Patient Education Materials have been given to the patient: [facility]12-06-2022 NoteThe following Patient Education Materials have been given to the patient: [facility]12-06-2022 Hospital Discharge instructions Follow Up Care 09/19/2022 01:24:08 With:Luis Carlos Jung Address: [address] [place] [address], [facility] [address] [place] [address] Business (1) When:09/20/2022 Comments:Appointment has already been scheduledCall Dr if fever>100.5 F, heavy bleedingCall for any problems.Call for severe abdominal painCall physician for heavy vaginal bleedingCall physician if symptoms worsenReturn for contractions closer, longer, harderPlease call if you need to rescheduleReturn for decreased movementReturn if ruptured membranes or vaginal bleeding [facility]12-01-2022 NoteThe following Patient Education Materials have been given to the patient: [facility] Hospital Discharge instructions Patient Education 09/14/2022 11:56:10 Sinus Headache, Tgxa-gt-Bbyk Sinus Headache A sinus headache happens when [...] on the bottle or box. Medicines Take sszq-byx-iwsoahe and prescription medicines only as told by [...] face, forehead, ears, or upper teeth. Take zbnu-iiq-gkppgiw and prescription medicines only as told by your doctor. If told, apply a warm, moist washcloth to your face. This can help to lessen pain. This information is not intended to replace advice given to you by your health care provider. Make sure you discuss any questions you have with your health care provider. Document Released: 01/31/2012 Document Revised: 09/13/2018 Document Reviewed: 07/12/2018 [employer] Patient Education 2020 Animated Speech Follow Up Care 09/14/2022 09:13:06 With:Luis Carlos Jung Address: [address] [place] [address] [place], [place] [phone] [facility] (1) When:09/20/2022 Comments:Return if ruptured membranes or vaginal bleedingReturn for decreased movementReturn for contractions closer, longer, harderCall physician if symptoms worsenCall for severe abdominal painCall for fever > 100.5 F Drink 8-10 glasses of water/day Use SUDAFED, TYLENOL AND BENADRYL as previouslydirected by Dr Fabiana Longoria [facility]11-29-2022 NoteThe following Patient Education Materials have been given to the patient: [facility] Hospital Discharge instructions Patient Education 09/12/2022 20:39:28 Third Trimester of , Vypn-yh-Pmea Third Trimester of The third trimester is from week 28 through week 40 (months 7 through 9). This trimester is when your unborn baby (fetus) is growing very fast. At the end of the ninth month, the unborn baby is about20 inches in length. It weighs about 6 10 pounds. Follow these instructions at home: Medicines Take rorv-ija-tewfmkg and prescription medicines only as told by [...] 12/26/2010 Document Revised: 01/22/2020 Document Reviewed: 11/06/2017 [employer] Patient Education 2019 Adviqo. Follow Up Care 09/12/2022 19:44:10 With:Luis Carlos Jung Address: [address] [facility] [address] [place] [address]- Business (1) When:09/20/2022 Comments:Appointment has already been scheduledCall Dr if fever>100.5 F, heavy bleedingCall for any problems.Call for severe abdominal painCall physician for heavy vaginal bleedingCall physician if symptoms worsenPlease call if you need to rescheduleReturn for contractions closer, longer, harderReturn for decreased movementReturn if ruptured membranes or vaginal bleeding [facility]11-25-2022 NoteThe following Patient Education Materials have been given to the patient: [facility]20[facility] Hospital Discharge instructions Follow Up Care 09/08/2022 08:14:23 With:Luis Carlos Jung Address: [address], [facility] [address] [place] [address]- Business (1) When:09/11/2022 Comments:Return for contractions closer, longer, harderReturn for decreased movementReturn if rupturedmembranes or vaginal bleeding [facility]11-23-2022 Hospital Discharge instructions Patient Education 09/05/2022 [...] the coronavirus come from? In September 2019, [place] told the World Health Organization (WHO) of several cases of lung disease (human respiratory illness). These cases were linked to an open seafood and livestock market in the [facility]. The link to the seafood and livestock [...] and virus naming World Health Organization (WHO): www.who.int/emergencies/diseases/dunum-xzzvmuvdoka-5047/technical-g uidance/opnuaz-jjk-izbvjheumdx-disease-(covid-2019)-peb-rpb-rbavt-jnpt-xgsgot-ab Who is at risk for complications from [...] relieve his or her symptoms by using lgmq-isn-igiziom medicines that treat sneezing, coughing, and runny [...] water are not available, use alcohol-based hand drying machine operator package yarns. Avoid touching your face, mouth, nose, or [...] Prevention (CDC): www.cdc.gov/coronavirus/2019-ncov/travelers/index.html World Health Organization (WHO): www.who.int/emergencies/diseases/pfjxh-wzberhkitha-9686/travel-advice Know the risks and take action to [...] water are not available, use alcohol-based hand drying machine operator package yarns. Cough or sneeze into a tissue, sleeve, [...] in hot, soapy water or use a electron tube assembler. Air-dry your dishes. Wash laundry in hot [...] Health Organization (WHO) Information and news updates: www.who.int/emergencies/diseases/utpat-iemvsncvkya-6123 Coronavirus health topic: www.who.int/health-topics/coronavirus Questions and answers on COVID-19: www.who.int/news-room/q-a-detail/t-w-ycpeuaplhbacj Global tracker: who.Outline.brettapproved [place] Academy of Pediatrics (AAP) Information for families: www.healthychildren.org/[place]/health-issues/conditions/chest-lungs/Pages /5409-Dqlgp-Hxumusvbrlw.aspx The coronavirus situation is changing rapidly. Check [...] 01/27/2020 Document Revised: 01/27/2020 Document Reviewed: 01/27/2020 [employer] Patient Education 2019 Adviqo. 09/05/2022 22:13:40 COVID-19 COVID-19 COVID-19 is a [...] managed at home with rest, fluids, and yybc-iav-yeftnhe medicines. Treatment for a serious infection usually [...] are safe for you. General instructions Take nhjt-ikl-rsqyakr and prescription medicines only as told by [...] high-risk areas and travel restrictions, check the [facility] travel website: wwwnc.cdc.gov/travel/notices If you live in, or must travel to, an area where COVID-19 is a risk, take precautions to avoid infection. ?Stay away from people who are sick. ?Wash your hands often with soap and water for 20 seconds. If soap and water are not available, usean alcohol-based hand drying machine operator package yarns. ?Avoid touching your mouth, face, eyes, or [...] water are not available, use alcohol-based hand drying machine operator package yarns. Stay away from other members of your [...] 11/06/2019 Document Revised: 02/26/2020 Document Reviewed: 11/06/2019 [employer] Patient Education 2019 [employer] Follow Up Care 09/05/2022 20:08:29 With:Luis Carlos Jung Address: [facility] [address] [address]- Business (1) When:09/08/2022 21:42:10 Comments:Use the albuterol inhaler 2 puffs every 4 hours for the next 2 to 3 days, you can use the Zofran every 6 hours as needed for nausea and vomiting. Please follow-up with your primary care doctor in thenext 2 to 3 days. Please return to the ED for any new or worsening symptoms. With:THANG MILLAN Address: [address] [place] [id number] Business (1) When:09/08/2022 21:42:06 [facility]11-22-2022 Evaluation + Plan noteExtracted from: Title:ED [...] Nausea/Vomiting, # 12 tab(s), Refills(s) 0, Pharmacy: [facility], 163, cm, 09/05/22 20:14:00 [...] Therapy PT & PTT Rapid COVID Antigen ([facility]) Saline Lock Insert Troponin 0 Hr. XR Chest Single View Future Appointments Appointment Date:09/06/2022 07:00:00 AM Scheduled [facility]: [facility]:Outpatient COVID Testing [facility]11-21-2022 Evaluation + Plan note Diagnostic Tests Pending * Group B Streptococcus colonization by PCR 09/04/22 [facility]11-17-2022 NoteThe following Patient Education Materials have been given to the patient: [facility] Hospital Discharge instructions Patient Education 08/31/2022 00:56:47 Third Trimester of , Dtjz-sv-Bmvx Third Trimester of The third trimester is from week 28 through week 40 (months 7 through 9). This trimester is when your unborn baby (fetus) is growing very fast. At the end of the ninth month, the unborn baby is about20 inches in length. It weighs about 6 10 pounds. Follow these instructions at home: Medicines Take fwla-nwd-fzdjezc and prescription medicines only as told by [...] 12/26/2010 Document Revised: 01/22/2020 Document Reviewed: 11/06/2017 [employer] Patient Education 2020 Adviqo. Follow Up Care 08/30/2022 21:31:53 With:Luis Carlos Jung Address: [address] [address]- Business (1) When:09/04/2022 Comments:Call for any problems.Call for severe abdominal painCall physician for heavy vaginal bleedingReturnfor contractions closer, longer, harderReturn for decreased movementReturn if ruptured membranes or vaginal bleeding [facility]11-08-2022 Hospital Discharge instructions Follow Up Care 08/22/2022 14:58:59 With:Dr. 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] 10/31/2007 Document Revised: 10/21/2019 Document Reviewed: 11/09/2016 [employer] Patient Education 2020 [employer] 08/13/2022 19:55:11 Monitoring Overview Monitoring Overview [...] 09/21/2003 Document Revised: 06/25/2018 Document Reviewed: 04/30/2017 [employer] Patient Education [employer] Follow Up Care 08/13/2022 17:29:42 With:Luis Carlos Jung Address: [address] [place] [address] [address] [facility] (1) When:1 to 2 days Comments:Call for any problems.Return for contractions closer, longer, harderReturn for decreased movementReturn if ruptured membranes or vaginal bleeding [facility]10-13-2022 Hospital Discharge instructions Follow Up Care 07/27/2022 01:12:54 With:Dr. Jung [phone] Address:Unknown When:09/24/2022 20:30:00 Comments:Call for any problems.Return if ruptured membranes or vaginal bleedingReturn for decreased movementcontractions every 5 minutes lasting 45 seconds for an hourCall Sunday night at 7:30 PM to assure bed availability for induction [facility]10-12-2022 Hospital Discharge instructions Patient Education 07/26/2022 [...] Follow these instructions at home: Medicines Take qqqx-tta-ozowhln and prescription medicines only as told by [...] as fried or sweet foods. ?Take an vwjn-aes-zbedsoh or prescription medicine for constipation. If you [...] 12/28/2009 Document Revised: 05/28/2019 Document Reviewed: 11/11/2018 [employer] Patient Education [employer] Follow Up Care 07/26/2022 07:56:25 With:Luis Carlos Jung Address: [address], [place] [phone] Business (1) When:08/07/2022 07:45:00 [facility]10-03-2022 Evaluation + Plan noteExtracted from: Title:ED Note Author:Hi Carmona PA-C te:07/17/22 UTI (urinary tract infection ) (N39.0: Urinary tract infection, site not specified) Orders: cephalexin, 500 mg = 1 cap(s), Oral, q12hr, X 5 day(s), # 10 cap(s), Refills(s) 0, Pharmacy: [facility], 162.5, cm, 07/17/22 9:09:00 EDT, Height/Length Dosing, 80, kg, 07/17/22 9:09:00 EDT, Weight Dosing Patient Specific Meds, Each, Misc, Once, Stop date 07/17/22 9:10:34 EDT, Physician Stop, 07/17/22 9:10:34 EDT Influenza A&B Ag Rapid COVID Antigen ([facility]) UA With Cult Reflex [facility]10-03-2022 Hospital Discharge instructions Patient Education 07/17/2022 [...] 01/26/2012 Document Revised: 01/23/2020 Document Reviewed: 09/04/2019 [employer] Patient Education 2020 Adviqo. 07/17/2022 09:55:44 Urinary Tract Infection, Adult Urinary [...] Treatment for this condition includes: Antibiotic medicine. Vrhn-vea-phjgqxw medicines to treat discomfort. Drinking enough water [...] Follow these instructions at home: Medicines Take cygz-sgc-wtiwdzt and prescription medicines only as told by [...] 07/11/2006 Document Revised: 09/18/2019 Document Reviewed: 04/10/2019 [employer] Patient Education 2020 [employer] Follow Up Care 07/17/2022 09:04:38 With:Luis Carlos Jung Address: [address] [address] Business (1) When:07/20/2022 09:46:49 With:THANG MILLAN Address: [address] [place] [id number] [facility] (1) When:07/20/2022 09:46:41 Comments:Follow-up with your primary care provider in 3 to 5 days. If symptoms worsen, do not improve, or new symptoms arise please report back to emergency department for further evaluation. [facility]09-14-2022 Evaluation + Plan note Diagnostic Tests Pending * RPR with Conf Rfx 06/28/22 [facility]09-12-2022 Hospital Discharge instructions Patient Education 06/26/2022 [...] 09/21/2003 Document Revised: 06/25/2018 Document Reviewed: 04/30/2017 [employer] Patient Education 2020 Adviqo. 06/26/2022 21:35:59 Form - Movement Counts Movement [...] 10/31/2007 Document Revised: 10/21/2019 Document Reviewed: 11/09/2016 [employer] Patient Education 2020 Adviqo. Follow Up Care 06/26/2022 20:41:33 With:Luis Carlos Jung Address: [address] [address] Business (1) When:07/03/2022 07:45:00 Comments:Call for any problems.Please call if you need to rescheduleReturn for decreased movement [facility]22 Hospital Discharge instructions Follow Up Care 06/18/2022 23:33:38 With:Luis Carlos Jung Address: [address] [address] Business (1) When:5 to 7 days Comments:Appointment has already been scheduledCall for any problems.Call for fever > 100.5 FCall for severe abdominal painCall physician for heavy vaginal bleedingPlease call if you need to rescheduleReturn for contractions closer, longer, harderReturn for decreased movementReturn if ruptured membranes or vaginal bleeding [facility]07-18-2022 Hospital Discharge instructions Follow Up Care 05/01/2022 17:08:54 With:Luis Carlos Jung Address: [address], [facility] [address] [place] [address]- Business (1) When:05/09/2022 Comments:Return if ruptured membranes or vaginal bleedingReturn for contractions closer, longer, harderCall physician if symptoms worsenCall physician for heavy vaginal bleedingCall for severe abdominal painCall for fever > 100.5 FCall for any problems. drink more fluids including gatorade, take milk of magnesia twice /day until yo u have bowel movements, benefiber daily [facility]06-19-2022 Evaluation + Plan note Diagnostic Tests Pending * Urine Culture 6/19/22 [facility]22 Hospital Discharge instructions Patient Education 04/02/2022 10:22:48 Second Trimester of , Zqfn-mq-Ptpt Second Trimester of The second trimester is [...] Follow these instructions at home: Medicines Take siqy-haa-szzderd and prescription medicines only as told by [...] 12/26/2010 Document Revised: 01/23/2020 Document Reviewed: 11/06/2017 [employer] Patient Education 2020 [employer]. 04/02/2022 10:22:48 Vaginal Bleeding During , Second [...] says that this is safe. Medicines Take rjab-kxi-djpzwfw and prescription medicines only as told by [...] Document Reviewed: 01/03/2018 Elsevier Patient Education 2020 [employer] Follow Up Care 04/02/2022 06:00:26 With:Dr. Jung [phone] Address:Unknown When:2 to 3 days Comments:Call for any problems.Call physician if symptoms worsen [facility]22 Hospital Discharge instructions Patient Education 03/23/2022 20:39:21 Second Trimester of , Snsp-ey-Kmjv Second Trimester of The second trimester is [...] Follow these instructions at home: Medicines Take iqtz-ekj-rlughga and prescription medicines only as told by [...] 12/26/2010 Document Revised: 01/23/2020 Document Reviewed: 11/06/2017 [employer] Patient Education 2020 [employer]. 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 Avoid heavy [...] grounds. You are around people who have [place] measles, fifth disease, or chickenpox. You have [...] 03/19/2009 Document Revised: 01/22/2020 Document Reviewed: 10/09/2017 [employer] Patient Education 2020 [employer]. 03/23/2022 20:39:21 Abdominal Pain During , Eadj-yx-Jggm Abdominal Pain During Belly (abdominal) pain is [...] keep your pee (urine) pale yellow. Take ugzp-uws-iaottql and prescription medicines only as told by [...] 09/19/2010 Document Revised: 01/19/2020 Document Reviewed: 01/03/2018 [employer] Patient Education 2020 [employer]. Follow Up Care 03/23/2022 19:35:57 With:Luis Carlos Jung Address: [address] [place] [address] [address] Business (1) When:03/27/2022 10:00:00 Comments:Call for any problems. Call [facility] first, ask to speak directly to Dr. Jung before heading to hospital unless an emergency. Call for severe abdominal pain or worsening pain.Return if vaginal bleedingor ruptured membranes.Wear belly band as much as possible, especially as your belly grows in . [facility]05-04-[facility]22 Evaluation + Plan note Diagnostic Tests Pending * RPR with Conf Rfx 02/15/22 * HIV Screen 4th Generation wRfx 02/15/22 * Rubella Antibody IgG 02/15/22 * Hepatitis B Surface Antigen 02/15/22 * Urine Culture 02/15/22 [facility]06-18-2021 NoteHNO ID: [id number] Author: Bert Negrete, DO Service: ? Author Type: Fellow Type: Progress Notes Filed: 04/01/2021 9:15 AM Note Text: [facility] [address] [place], [place] [address] Martha Webb ([facility]) [address] [facility] [address] PCP: Thang Millan NP Accompanied by: Mother [...] bed and continue this dose - rizatriptan (MAXALT-LANDING WORKER) 10 mg disintegrating tablet Take 1 tablet [...] Transformed Score (ran (more content not included)... [facility]21 NoteHNO ID: [id number] Author: Karen Vinson RT(R) Service: Nuclear Medicine Author Type: Network Operations Center Engineer Type: Progress Notes Filed: 03/24/2021 9:39 AM [...] 0740 PATIENT DISCHARGED TO: Ambulatory patient, left DC department area. A Diagnostic radioactive procedure has taken place, with no further precautions necessary other than routine body substance precautions. More information regarding radiation safety can be found using this link: [email or web address] SIGNATURE: RT Oliva(R) PATIENT NAME: Susan Bro DATE: March 24, 2021 TIME: 9:38 AM PAGER/CONTACT #:[facility]-27[facility]21 NoteHNO ID: [id number] Author: Martha Webb MD Service: ? Author Type: Physician Type: Progress Notes Filed: 03/10/2021 12:03 PM Note Text: This note was created using [employer]. Subjective Susan Bro is a 25 year [...] biliary ductal dilatation is (more content not included)...[facility] note* Diagnosis Third trimester state, incidental documented in this encounter [facility]* Diagnosis Third trimester state, incidental Hypothyroidism (acquired) ([facility]) Unspecified hypothyroidism [facility] Narrative No data available for this section [facility] No data available for this section [facility] No data available for this section [facility] Summary Purpose Family History No Family [...] FoundDocuments on File Type Date Recorded Patient Twisting Department End Finder Expl anation Advance Directives and Livin g Will 10/14/2020 10:22 AM Documents on File Type Date Recorded Patient Twisting Department End Finder Expl anation ACP-Advance Directive ACP-Power of Acetaldehyde Converter Operator Discharge Instructions * Discharge Instr - Care Coordination* Andra Schmid RN - 10/14/2020 11:[address] [facility] Trust the experts at [facility] to meet your healthcare needs. When you make an appointment with [facility], it's the start of a long-lasting partnership that's committed to your health. We provide the very best prevention, wellness and illness care, and give you access to the advanced medical services and expert treatment available at [facility]. Please note that the provider listed below is accepting patients in your area. [place]: [address] [phone] MD Debby Lala MD Christina Spring, CNP For the most up-to-date information on a care provider in your community, use the Find a Doctor tool on [facility] * [...] section and content) DATE CREATED AUTHOR 04/09/2018 [facility] DATE CREATED AUTHOR AUTHOR'S ORGANIZ ATION 08/10/2020 [facility] DATE CREATED AUTHOR AUTHOR'S ORGANIZ ATION 09/07/2020 [facility] DATE CREATED AUTHOR AUTHOR'S ORGANIZ ATION 10/20/2020 [facility] DATE CREATED AUTHOR AUTHOR'S ORGANIZ ATION 03/18/2021 [facility] DATE CREATED AUTHOR AUTHOR'S ORGANIZ ATION 11/15/2021 [facility] DATE CREATED AUTHOR AUTHOR'S ORGANIZ ATION 08/25/[address] 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 denies hitting [...] Note: NAME: Susan Bro 24 y.o. CSN: [id number] PCP: Physician No History: Chief Complaint: Dizziness [...] does have reproducible vertigo with position changes. Flxcio-dj-hzkq maneuvers are intact without dysmetria. There is negative Romberg sign. There was no ataxia on ambulation. Psychiatric: Mood and Affect: Mood normal. Behavior: Behavior normal. Thought Content: Thought content normal. Laboratory & Radiological Imaging (if done): Labs Reviewed URINALYSIS - Abnormal; Notable for the following components: Result Value Clarity, Urine Cloudy (*) Specific Earling 1.028 (*) pH, Urine 8.0 (*) Protein, [...] at the following links: For Healthcare Providers: https://www.fda.gov/media/084528/download For Patients: https://www.fda.gov/media/067574/download HCG URINE, QUALITATIVE - Normal CBC AND DIFFERENTIAL Narrative: The following orders were created for panel order CBC w/ Diff. Procedure Abnormality Status --------- ------ CBC Auto Differential[[id number]] Abnormal Final result Please view results for [...] Antivert. She is referred to follow-up with [facility] or [place] that she does not currently have a [...] needed for dizziness . Susan Griffiths Physicians Database Administrator [facility] Emergency Department Susan Griffiths PA-C 10/14/20 1203 Special isolation precautions are in place with signage outside this patient's room. This critical care nurse performs hand hygiene and enters the patient [...] or prosecute any alcohol or drug abuse patient.[facility] Care Team (unrecognized sect ion and content) Personnel Name: THANG MILLAN CNP Address: [address] [place] [address] Personnel Name: THANG MILLAN CNP Address: [address] [place] [address] Personnel Name: THANG MILLAN CNP Address: [address] [place] [address] Personnel Name: THANG MILLAN CNP Address: [address] [place] [address] Personnel Name: THANG MILLAN CNP Address: [address] [place] [address] Personnel Name: THANG MILLAN CNP Address: [address] [place] [address] Personnel Name: THANG MILLAN CNP Address: [address] [place] [address]- [place] Personnel Name: THANG MILLAN CNP Address: [address] [place] [address]- [place] Personnel Name: THANG MILLAN CNP Address: Address: [address] [place] [address]- [place] Personnel Name: THANG MILLAN CNP Address: Address: [address] [place] [address]- [place] Personnel Name: THANG MILLAN CNP Address: Address: [address] [place] [address]- [place] Personnel Name: THANG MILLAN CNP Address: Address: [address] [place] [address]- [place] Personnel Name: THANG MILLAN CNP Address: Address: [address] [place] [address]- [place] Personnel Name: THANG MILLAN CNP Address: Address: [address] [place] [address]- [place] Personnel Name: THANG MILLAN CNP Address: Address: [address] [place] [address]- [place] Personnel Name: THANG MILLAN CNP Address: Address: [address] [place] [address]- [place] Personnel Name: THANG MILLAN CNP Address: Address: [address] [place] [address]- [place] Personnel Name: THANG MILLAN CNP Address: Address: [address] [place] [address]- [place] Personnel Name: THANG MILLAN CNP Address: Address: [address] [place] [address]- [place] Personnel Name: THANG MILLAN CNP Address: Address: [address] [place] [address]- [place] Personnel Name: THANG MILLAN CNP Address: Address: [address] [place] [address]- [place] Personnel Name: THANG MILLAN CNP Address: Address: [address] [place] [address]- [place] Personnel Name: THANG MILLAN CNP Address: Address: [address] [place] [address]- [place] Personnel Name: THANG MILLAN CNP Address: Address: [address] [place] [address]- [place] Personnel Name: THANG MILLAN CNP Address: Address: [address] [place] [address]- [place] Personnel Name: THANG MILLAN CNP Address: Address: [address] [facility] [address] [place] Personnel Name: Luis Carlos Jung MD Address: Address: [address] [place] [address], [address] Personnel Name: Luis aCrlos Jung MD Address: Address: [facility] [address], [address] Personnel Name: Luis Carlos Jung MD Address: Address: [facility] [address], [address] Personnel Name: Luis Carlos Jung MD Address: Address: [facility] [address], [address] Personnel Name: Luis Carlos Jung MD Address: Address: [facility] [address], [address] Personnel Name: Rashaun AMADOR DO Address: Address: [address] , [facility] Personnel Name: NONE, XXXX Address: Address: [facility] Personnel Name: LLC, GENERIC Personnel [...] BE BASED ON THE PRIMARY CLINICAL RECORDS. [facility] [employer] [facility]. provides no warranty or guarantee of the accuracy or completeness of information in this document.
== END 2023-11-30 10:30 | disposition home or self-care (01) ==
LOC: FBCO 07:36 → FBC 09:58
PROVIDERS: Visit Provider Obstetrics & Gynecology
DX: O36.63X1 Maternal care for excessive fetal growth, third trimester, fetus 1 (principal); O26.843 Uterine size-date discrepancy, third trimester
CPT/HCPCS: 59025

== ENCOUNTER 2023-12-04 07:47 | Outpatient (OUT) | payer OTHER, SELFPAY ==
--- OUTSIDE RECORDS SUMMARY | 2023-12-04 07:52 | XMS_ITS | CCD ---
Author Name Unknown Address [address] [facility] [facility] [facility] [address] [place] [address] Organization [facility] Care Team Providers Care Drawing Supervisor Name Role Phone KNECHI TORRES Unavailable UnavailBAKARI Bang Attending Unavailable THANG MILLAN Primary Care Unavailable No, Physician Primary Care Provider Unavailerum BRODY, PHYSICIAN Primary Care Unavailable REGINE CHOW Admitting Unavailable REGINE CHOW Attending Unavailable Thang Millan Primary Care Provider Unavailable Primary Care Provider UnavailTHANG Mauro Primary Care Physician Luis Carlos Jung Primary Care Physician [phone] Rashaun AMADOR Primary Care Physician NONE, XXXX Primary Care Physician Unavailab samson MAHONEY, MELINA Primary Care Physician Unavailab DO Gopi Christensen [...] Roverto V. Attending Unavailabl e Spasic, Roverto Maria. Admitting [...] Attending Unavailable Hajdari, Astrit H Attending Unavailable Unavailable Primary Care Provider Unavailabl e DODIE MILLER Attending Unavailable PERRY, RASHAUN Attending Unavailable PERRY, RASHAUN Attending Unavailable PERRY, RASHAUN Attending Unavailable PERRY, RASHAUN Attending Unavailable PERRY, RASHAUN Attending Unavailable ANGELA, DODIE Attending Unavailable Allergies Allergy Classification Reported Allergen(s) Allergy Type Date of Onset Reaction(s) Facility (20 sources) amoxicillin; Translations: [AMOXICILLIN] Drug Allergy 7 [facility] (20 sources) penicillin; Translations: [PENICILLIN] Drug Allergy 7 [facility] (9 sources) Penicillins; Translations: [PENICILLINS] Propensity to adverse reactions to drug 0 [place], [place] (6 sources) Penicillin G procaine Allergy [...] [facility], 162.5, cm, 08/18/22 [...] Ordered docusate sodium 50 mg / sennosides, custodial 8.6 mg oral tablet (6 sources) senna-docusate [...] dizziness, # 15 tab(s), Refills(s) 0, Pharmacy: [facility] [address], 163, cm, 11/30/21 7:18:00 EST, [...] 07-06-2021 Chronic Other and delivery including normal (15 sources) Normal ; Translations: [Encounter for supervision [...] HORMONEon 0 11-27-2023 TSH Qn 2.029 m[IU]/L [facility] Urinalysis macro (dipstick) panel (U)on 11-27-2023 Bilirubin, UA Negative Negative - 4(70) +++ mg/dL [facility] Blood, UA Negative Negative - 50 Tod/mcL [facility] Clarity, UA Clear [facility] Color, UA Yellow [facility] Glucose, UA Negative Negative - 1999(110) ++++ mg/dL [facility] Interpretation and review of laboratory results Abnormal [facility] Ketones, UA Positive Negative - 160(16) ++++ mg/dL [facility] Leukocytes, UA Positive Negative - 500+++ Rosemarie/mcL [facility] Nitrite, UA Negative Negative - Positive [facility] pH, UA 6.5 5 - 9 [facility] Protein, UA Trace Negative - 1999(20) ++++ mg/dL [facility] Spec Grav, UA 1.025 1 - 1.03 [facility] Urobilinogen, UA 1.0 0.2 - 12 mg/dL [facility] Urinalysis macro (dipstick) panel (U)on 11-20-2023 Bilirubin, UA Negative Negative - 4(70) +++ mg/dL [facility] Blood, UA Negative Negative - 50 Tod/mcL [facility] Clarity, UA Clear [facility] Color, UA Yellow [facility] Glucose, UA Negative Negative - 1999(110) ++++ mg/dL [facility] Interpretation and review of laboratory results Normal [facility] Ketones, UA Negative Negative - 160(16) ++++ mg/dL [facility] Leukocytes, UA Negative Negative - 500+++ Rosemarie/mcL [facility] Nitrite, UA Negative Negative - Positive [facility] pH, UA 7.0 5 - 9 [facility] Protein, UA Negative Negative - 1999(20) ++++ mg/dL [facility] Spec Grav, UA 1.025 1 - 1.03 [facility] Urobilinogen, UA 1.0 0.2 - 12 mg/dL [facility] URINALYSISOrdered By: An Mccarty on 11-04-2023 Bacteria LM Ql (Urine sed) Trace /HPF Normal Trace/HPF [facility] UA Auto SS Bilirubin Ql (U) Negative (11/04/23 8:05 AM) Normal Negative [facility] UA Auto SS Clarity (U) SL CLOUDY Invalid Interpretation Code [facility] UA Auto SS Color (U) Yellow (11/04/23 8:05 AM) Normal Yellow [facility] UA Auto SS Epithelial cells.squamous LM.HPF (Urine sed) [#/Area] 5-8 /HPF Normal 0-2/HPF [facility] UA Auto SS Glucose Test strip (U) [Mass/Vol] Negative (11/04/23 8:05 AM) Normal Negative [facility] UA Auto SS Hemoglobin Ql (U) Negative (11/04/23 8:05 AM) Normal Negative [facility] UA Auto SS Ketones (U) [Mass/Vol] Negative (11/04/23 8:05 AM) Normal Negative [facility] UA Auto SS [place].plasma/[place] .RBC (Bld) [Mass ratio] 0-3 /HPF [...] Desc Clean Catch (11/04/23 8:05 AM) Normal [facility] UA Auto SS Urobilinogen Qn (U) 0.9476140 {Rola'U}/dL Normal 0.0 - 1.0 EU/dL FT UA Auto SS WBC Auto Ql (U) 1+ *ABN* (11/04/23 8:05 AM) Invalid Interpretation Code Negative [facility] UA Auto SS WBC LM.HPF (Urine sed) [#/Area] 6-15 /HPF Invalid Interpretation Code 0-5/HPF [facility] UA Auto SS T3 Totalon 08-24-2023 T3 [Mass/Vol] 146 ng/dL Invalid Interpretation Code [address] [facility] Comment on above: Result Comment: Perf ormed at: [facility] [address] [id number] PhD [place] Performed By: #### 2 317209, 97574160, 2885017, 10298367, 3182116, 3025849, 54750074 ####[facility] [address] [place] [address] Auto Diffon 08-23-2023 Basophils/100 WBC (Bld) 0.9 % Normal 0.0-2.0 [facility] Comment on above: Order Comment: Order Added by Discern Expert. Performed By: #### 2 654416, 26859332, 9296898, 73230895, 0146217, 8469591, 94423787 ####[facility] [address] [place] [address] Basophils/Leukocytes Auto (Bld) [Pure # fraction] 0.1 E9/L Normal 0.0-0.2 [facility] Comment on above: Order Comment: Order Added by Discern Expert. Performed By: #### 2 809049, 39546470, 1645096, 39646237, 2214066, 1113030, 95954512 ####[address] [place] [address] Eosinophils/100 WBC (Bld) 1.3 % Normal 0.0-8.0 [facility] Comment on above: Order Comment: Order Added by Discern Expert. Performed By: #### 2 901932, 57955713, 8073047, 99033618, 2269138, 0279957, 88815087 ####[address] [address] Eosinophils/Leukocytes Auto (Bld) [Pure # fraction] 0.1 E9/L Normal 0.0-0.5 [facility] Comment on above: Order Comment: Order Added by Discern Expert. Performed By: #### 2 403412, 15448556, 6795970, 44647325, 8515773, 3404814, 18833576 ####[address] [address] Lymphocytes/100 WBC (Bld) 17.7 % Normal 14.0-50.0 [facility] Comment on above: Order Comment: Order Added by Discern Expert. Performed By: #### 2 021901, 54037450, 6729425, 74824003, 7433456, 8389160, 05221990 ####[address] [address] Lymphocytes/Leukocytes Auto (Bld) [Pure # fraction] 1.4 E9/L Normal 1.0-4.0 [facility] Comment on above: Order Comment: Order Added by Discern Expert. Performed By: #### 2 271925, 89415632, 9966710, 47242989, 5773153, 9889051, 63836038 ####[facility] [address] [place] [address] Monocytes/100 WBC (Bld) 5.1 % Normal 4.0-14.0 [facility] Comment on above: Order Comment: Order Added by Discern Expert. Performed By: #### 2 168905, 40669770, 1525419, 76544301, 4265660, 0669346, 67496741 ####[address] [place] [address] Monocytes/Leukocytes Auto (Bld) [Pure # fraction] 0.4 E9/L Normal 0.2-1.0 [facility] Comment on above: Order Comment: Order Added by Discern Expert. Performed By: #### 2 878821, 06282682, 7702283, 02867112, 2398832, 3053740, 06538596 ####[address] [address] Neutrophils/100 WBC (Bld) 75.0 % Normal 36.0-75.0 [facility] Comment on above: Order Comment: Order Added by Discern Expert. Performed By: #### 2 359686, 60379986, 7593624, 39415733, 4032007, 2918037, 24274080 ####[address] [place] [address] Neutrophils/Leukocytes Auto (Bld) [Pure # fraction] 5.8 E9/L Normal 2.0-7.5 [facility] Comment on above: Order Comment: Order Added by Discern Expert. Performed By: #### 2 407097, 81823446, 3114968, 53685510, 2900359, 2841777, 18657832 ####[address] [place] [address] CBC w/ Auto Diffon 3 Erythrocyte distribution width (RBC) [Ratio] 14.5 % High 10.9-14.2 [facility] Comment on above: Performed By: #### 2 634327, 08122212, 4162737, 87047452, 5038570, 3898818, 66355704 ####[facility] [address] [place] [address] Hematocrit (Bld) [Volume fraction] 36.4 % Normal 34.0-46.0 [facility] Comment on above: Performed By: #### 2 005164, 67731301, 5952190, 30835215, 9718096, 7342283, 91811814 ####[address] [place] [address] Hemoglobin (Bld) [Mass/Vol] 12.1 g/dL Normal 12.0-16.0 [facility] Comment on above: Performed By: #### 2 099365, 44835726, 2146844, 22554393, 8622920, 2335395, 36518701 ####[address] [address] MCH (RBC) [Entitic mass] 30.2 pg Normal 27.0-34.0 [facility] Comment on above: Performed By: #### 2 096821, 98681485, 8569604, 00360861, 9922952, 0312956, 96836897 ####[address] [address] MCHC (RBC) [Mass/Vol] 33.3 g/dL Normal 31.4-36.0 [facility] Comment on above: Performed By: #### 2 522806, 67529748, 5230901, 63769063, 2366285, 2638637, 86977796 ####[address] [place] [address] MCV (RBC) [Entitic vol] 90.8 fL Normal 80.0-100.0 [facility] Comment on above: Performed By: #### 2 160177, 13833436, 4842100, 84597440, 0908588, 7636940, 21771351 ####[address] [address] Platelet mean volume (Bld) [Entitic vol] 9.7 fL Normal 6.4-10.8 [facility] Comment on above: Performed By: #### 2 629008, 93557649, 8906626, 07533465, 5680662, 2721354, 49562571 ####[facility] [address] [place] [address] Platelets (Bld) [#/Vol] 270.0 E9/L Normal 150.0-500.0 [facility] Comment on above: Performed By: #### 2 373963, 06789137, 7637401, 04104828, 5029549, 0629279, 25771148 ####[facility] [address] [place] [address] RBC (Bld) [#/Vol] 4.0 E12/L Low 4.3-5.9 [facility] Comment on above: Performed By: #### 2 011002, 00386315, 8839772, 55009766, 2281705, 6406932, 54033031 ####[facility] [address] [place] [address] WBC corrected for nucl RBC Auto (Bld) [#/Vol] 7.7 E9/L Normal 4.0-11.0 [facility] Comment on above: Performed By: #### 2 362332, 38445631, 8987361, 21552881, 7039245, 0849467, 23266098 ####[facility] [address] [place] [address] CHEMISTRYOrdered By: SYSTEM SYSTEM on 08-23-2023 Albumin [...] mL/min/1.73 m2 Normal >=59mL/min/ 1.73 m2 [facility] Chem S Comment [...] 08-23-2023 Albumin [Mass/Vol] 2.8 g/dL Low 3.3-5.0 [facility] Comment on above: Performed By: #### 2 993441, 71572310, 3595035, 03192509, 7340006, 4522967, 10611434 ####[facility] [address] [place] [address] Albumin/Globulin (S) [Mass conc ratio] 0.7 Low 1.1-2.2 [facility] Comment on above: Performed By: #### 2 506273, 21762183, 2408708, 99096682, 5137419, 7979385, 94961051 ####[facility] [address] [place] [address] ALP [Catalytic activity/Vol] 49 Int._Unit/L Normal 21-98 [facility] Comment on above: Performed By: #### 2 864151, 58286011, 9939518, 22576418, 1417505, 2102892, 99643935 ####[facility] [address] [place] [address] ALT No additional P-5'-P [Catalytic activity/Vol] 15 Int._Unit/L Normal 6-46 [facility] Comment on above: Performed By: #### 2 503854, 77488949, 2141551, 82636879, 1923364, 8688298, 48562922 ####[facility] [address] [place] [address] Anion gap [Moles/Vol] 12 mmol/L Normal 6-16 [facility] Comment on above: Performed By: #### 2 506638, 86960965, 3277454, 69672369, 5662990, 6534957, 97396398 ####[facility] [address] [place] [address] AST [Catalytic activity/Vol] 17 Int._Unit/L Normal 5-43 [facility] Comment on above: Performed By: #### 2 190386, 21594761, 6866431, 13220886, 1127293, 4623233, 36419053 ####[facility] [address] [place] [address] Bilirubin [Mass/Vol] 0.5 mg/dL Normal 0.0-1.1 [facility] Comment on above: Performed By: #### 2 602073, 19104786, 9664732, 58612133, 8178226, 5269623, 57202798 ####[address] [place] [address] Calcium [Mass/Vol] 8.8 mg/dL Low 8.9-11.1 [facility] Comment on above: Performed By: #### 2 045884, 60134289, 2317203, 46100495, 6013486, 7772518, 52960153 ####[facility] [address] [place] [address] Chloride [Moles/Vol] 108 mmol/L Normal 101-111 [facility] Comment on above: Performed By: #### 2 550887, 74727313, 8183254, 51539270, 4896369, 9962286, 28476528 ####[facility] [address] [place] [address] CO2 [Moles/Vol] 22 mmol/L Normal 21-31 [facility] Comment on above: Performed By: #### 2 830676, 46625882, 7330687, 14865523, 2030095, 9788311, 38019430 ####[facility] [address] [place] [address] Creatinine [Mass/Vol] 0.6 mg/dL Normal 0.5-1.3 [facility] Comment on above: Performed By: #### 2 900765, 27849686, 3186883, 88905102, 2608561, 0967366, 15815236 ####[facility] [address] [place] [address] Globulin (S) [Mass/Vol] 3.8 g/dL Normal 1.4-4.0 [facility] Comment on above: Performed By: #### 2 785790, 06615418, 4653852, 20897108, 0464983, 0046066, 23996259 ####[facility] [address] [place] [address] Glucose [Mass/Vol] 88 mg/dL Normal 55-199 [facility] Comment on above: Result Comment: If t his glucose result represents a fasting glucose, interpretation should refer to the following reference range: 55-99 mg/dL Performed By: #### 2 477823, 97041579, 2117551, 32746693, 7169000, 3825476, 11456356 ####[facility] [address] [place] [address] Potassium [Moles/Vol] 3.5 mmol/L Normal 3.5-5.3 [facility] Comment on above: Performed By: #### 2 864930, 09379028, 8190385, 64127274, 2923239, 8372412, 75702507 ####[facility] [address] [place] [address] Protein [Mass/Vol] 6.6 g/dL Normal 6.0-7.8 [facility] Comment on above: Performed By: #### 2 993107, 05938762, 9019215, 97039233, 8062296, 4359425, 04730814 ####[facility] [address] [place] [address] Sodium [Moles/Vol] 138 mmol/L Normal 135-145 [facility] Comment on above: Performed By: #### 2 320541, 79971403, 5296211, 42721362, 9021202, 4337974, 10220722 ####[facility] [address] [place] [address] Urea nitrogen [Mass/Vol] 7 mg/dL Normal 5-21 [facility] Comment on above: Performed By: #### 2 691338, 95182888, 9682071, 37552173, 4492179, 8736407, 57391176 ####[facility] [address] [place] [address] Urea nitrogen/Creatinine [Mass ratio] 12 No Units Normal 10-20 [facility] Comment on above: Performed By: #### 2 375939, 89853224, 6630356, 35931652, 2018812, 7003751, 25831362 ####[facility] [address] [place] [address] HEMATOLOGYOrdered By: SYSTEM SYSTEM on 08-23-2023 Basophils/100 [...] 08-23-2023 Cholesterol [Mass/Vol] 238 mg/dL High 120-200 [facility] Comment on above: Performed By: #### 2 748204, 33220058, 1596869, 80515258, 6371047, 3607167, 77175997 ####[facility] [address] [place] [address] Cholesterol in HDL [Mass/Vol] 64 mg/dL Invalid Interpretation Code [facility] Comment on above: Result Comment: HDL > or equal to 60 mg/dL: Low cardiovascular riskHDL < 40 mg/dL : High cardiovascular risk Performed By: #### 2 518714, 11032171, 1075614, 37220586, 9200801, 9775202, 83292743 ####[facility] [address] [place] [address] Cholesterol in LDL [Mass/Vol] 146 mg/dL High <=129 [facility] Comment on above: Performed By: #### 2 377537, 27444841, 3092859, 44837193, 1033550, 8989555, 98211487 ####[facility] [address] [place] [address] Cholesterol in VLDL [Mass/Vol] 33 mg/dL Normal 7-40 [facility] Comment on above: Performed By: #### 2 750941, 73177040, 3928551, 95484472, 8401142, 4679732, 21463568 ####[facility] [address] [place] [address] Triglyceride [Mass/Vol] 164 mg/dL High <=149 [facility] Comment on above: Performed By: #### 2 024312, 98841075, 8590449, 16574799, 4485853, 3101469, 45240063 ####[facility] [address] [place] [address] Physician Orderon 08-23-2023 Physician Order [id number]#1.00TIFF Normal [facility] T4 & TSHon 08-23-2023 T4 [Mass/Vol] 11.8 microgram/dL High 4.6-9.[address] [facility] Comment on above: Performed By: #### 2 347755, 69563076, 2152346, 78701337, 1785969, 9099273, 46502381 ####[facility] [address] [place] [address] TSH Qn 3.61 m[IU]/L Normal 0.34-5.60 [facility] Comment on above: Performed By: #### 2 797116, 59350022, 7260772, 80716011, 8337332, 0660736, 72803110 ####[facility] [address] [place] [address] eGFRon 08-23-2023 GFR/1.73 sq M.predicted among non-blacks MDRD (S/P/Bld) [Vol rate/Area] 125 mL/min/1.73 m2 Normal >=59 [facility] Comment on above: Order Comment: Order added by Discern Expert. Result Comment: Hot Tamale Worker lucy kidney disease could be indicated at eGFR's of less than 60 mL/min/1.73m2. Kidney failure is indicated at less than 15 mL/min/1.73m2. Performed By: #### 2 213518, 09822548, 0448905, 71241869, 3394528, 8176820, 53486628 ####[facility] [address] [place] [address] Nursing Assessmenton 023 Nursing Assessment [id number]#1.00TIFF Normal [facility] Consent for Treatmenton Consent for Treatment [id number]#1.00TIFF Normal [facility] Discharge Instructionson Discharge Instructions [id number]#1.00TIFF Normal [facility] Inpatient Clinical Summaryon 08-18-2023 Inpatient Clinical Summary Normal [facility] Inpatient Patient Summaryon 08-18-2023 Inpatient Patient Summary Normal [facility] Insurance Correspondenceon 1 10-18-2022 Insurance Correspondence [id number]#1.00TIFF Normal [facility] Vaccinationson 08-18-2023 Vaccinations [id number]#1.00TIFF Normal [facility] C Urineon 07-27-2023 Bacteria identified Cx Nom (U) Normal [facility] Comment on above: Performed By: #### 2 002122, 61404871 ####[facility] [address] [place] [address] ABO/Rhon 07-25-2023 ABO/Rh Positive Invalid Interpretation Code [facility] Comment on above: Performed By: #### 2 075092 ####[facility] [address] [place] [address] Auto Diffon 07-25-2023 Basophils/100 WBC (Bld) 1.1 % Normal 0.0-2.0 [facility] Comment on above: Order Comment: Order Added by Discern Expert. Performed By: #### 1 6835670, 9656697, 6906113, 7294283, 8653852, 7616793 ####[facility] [address] [place] [address] Basophils/Leukocytes Auto (Bld) [Pure # fraction] 0.1 E9/L Normal 0.0-0.2 [facility] Comment on above: Order Comment: Order Added by Discern Expert. Performed By: #### 1 4220263, 8819252, 3327484, 7598525, 1510938, 0001909 ####[facility] [address] [place] [address] Eosinophils/100 WBC (Bld) 1.2 % Normal 0.0-8.0 [facility] Comment on above: Order Comment: Order Added by Discern Expert. Performed By: #### 1 6663859, 8711545, 8352874, 8869812, 4579850, 1345582 ####[facility] [address] [place] [address] Eosinophils/Leukocytes Auto (Bld) [Pure # fraction] 0.1 E9/L Normal 0.0-0.5 [facility] Comment on above: Order Comment: Order Added by Discern Expert. Performed By: #### 1 0524093, 3086769, 1262401, 4067832, 3795699, 9276196 ####[facility] [address] [place] [address] Lymphocytes/100 WBC (Bld) 23.7 % Normal 14.0-50.0 [facility] Comment on above: Order Comment: Order Added by Gisselle Expert. Performed By: #### 1 1063581, 2929575, 8054837, 9785370, 1665789, 3989430 ####[facility] [address] [place] [address] Lymphocytes/Leukocytes Auto (Bld) [Pure # fraction] 1.4 E9/L Normal 1.0-4.0 [facility] Comment on above: Order Comment: Order Added by Gisselle Expert. Performed By: #### 1 4648005, 4452032, 4831316, 9333422, 5981114, 3868349 ####[facility] [address] [place] [address] Monocytes/100 WBC (Bld) 6.7 % Normal 4.0-14.0 [facility] Comment on above: Order Comment: Order Added by Gisselle Expert. Performed By: #### 1 3450557, 1935210, 7862009, 3637783, 0397406, 7979734 ####[facility] [address] [place] [address] Monocytes/Leukocytes Auto (Bld) [Pure # fraction] 0.4 E9/L Normal 0.2-1.0 [facility] Comment on above: Order Comment: Order Added by Gisselle Expert. Performed By: #### 1 9600355, 7916593, 9833084, 2284674, 9180941, 0510386 ####[facility] [address] [place] [address] Neutrophils/100 WBC (Bld) 67.3 % Normal 36.0-75.0 [facility] Comment on above: Order Comment: Order Added by Discern Expert. Performed By: #### 1 9952958, 9443982, 2105753, 2118709, 1993177, 0983871 ####[facility] [address] [place] [address] Neutrophils/Leukocytes Auto (Bld) [Pure # fraction] 4.0 E9/L Normal 2.0-7.5 [facility] Comment on above: Order Comment: Order Added by Discern Expert. Performed By: #### 1 5788133, 4032491, 6082682, 2364367, 4526294, 5456764 ####[facility] [address] [place] [address] BLOOD BANKOrdered By: An Lassiter on 07-25-2023 ABO/Rh Interp Positive Invalid Interpretation Code [facility] BB Subsection BMPon 07-25-2023 Creatinine [Mass/Vol] 0.6 mg/dL Normal 0.5-1.3 [facility] Comment on above: Performed By: #### 1 7646969, 3492906, 9943970, 2020702, 9365807, 4368755 ####[facility] [address] [place] [address] Urea nitrogen [Mass/Vol] 6 mg/dL Normal 5-21 [facility] Comment on above: Performed By: #### 1 2732325, 1332955, 4042802, 2108256, 0911510, 6762267 ####[facility] [address] [place] [address] Urea nitrogen/Creatinine [Mass ratio] 10 No Units Normal 10-20 [facility] Comment on above: Performed By: #### 1 8896502, 5406163, 1075300, 4907049, 1986207, 6468230 ####[facility] [address] [place] [address] Anion gap [Moles/Vol] 2 mmol/L Low 6-16 [facility] Comment on above: Performed By: #### 1 0172967, 8152626, 5601906, 1413530, 5735271, 8924969 ####[facility] [address] [place] [address] Calcium [Mass/Vol] 8.6 mg/dL Low 8.9-11.1 [facility] Comment on above: Performed By: #### 1 7403457, 3321039, 3004269, 8244472, 8292728, 4675993 ####[facility] [address] [place] [address] Chloride [Moles/Vol] 107 mmol/L Normal 101-111 [facility] Comment on above: Performed By: #### 1 8591139, 2267481, 4276091, 7970430, 4091262, 1729158 ####[facility] [address] [place] [address] CO2 [Moles/Vol] 27 mmol/L Normal 21-31 [facility] Comment on above: Performed By: #### 1 7646017, 4020661, 7885286, 4786324, 3720045, 8241290 ####[facility] [address] [place] [address] Glucose [Mass/Vol] 73 mg/dL Normal 55-199 [facility] Comment on above: Result Comment: If t his glucose result represents a fasting glucose, interpretation should refer to the following reference range: 55-99 mg/dL Performed By: #### 1 9587666, 4673506, 1676066, 7973897, 0244588, 8087269 ####[facility] [address] [place] [address] Potassium [Moles/Vol] 3.9 mmol/L Normal 3.5-5.3 [facility] Comment on above: Performed By: #### 1 4617578, 0890710, 1645017, 7179532, 2359782, 6521102 ####[facility] [address] [place] [address] Sodium [Moles/Vol] 132 mmol/L Low 135-145 [facility] Comment on above: Performed By: #### 1 5768450, 7984766, 2313429, 0464000, 8524142, 2264284 ####[facility] [address] [place] [address] BhCG Quanton 07-25-2023 [place] [address] m[IU]/mL High 1-3 F [facility] Comment on above: Result Comment: GEST ATIONAL AGE HCG RANGE (mIU/mL) NON- <1-3 0.2-1 WEEKS 5-50 1-2 WEEKS 50-500 2-3 WEEKS 100-5,000 3-4 WEEKS 500-10,000 4-5 WEEKS 1,000-50,000 5-6 WEEKS 10,000-100,000 6-8 WEEKS 15,000-200,000 8-12 WEEKS 10,000-100,000 Performed By: #### 2 061589 ####[facility] [address] [place] [address] CBC w/ Auto Diffon Erythrocyte distribution width (RBC) [Ratio] 14.0 % Normal 10.9-14.2 [facility] Comment on above: Performed By: #### 1 6184196, 4709498, 1495183, 0894868, 9736784, 2210657 ####[facility] [address] [place] [address] Hematocrit (Bld) [Volume fraction] 37.1 % Normal 34.0-46.0 [facility] Comment on above: Performed By: #### 1 9719347, 1695347, 4721335, 6056226, 6236165, 8002667 ####[facility] [address] [place] [address] Hemoglobin (Bld) [Mass/Vol] 12.5 g/dL Normal 12.0-16.0 [facility] Comment on above: Performed By: #### 1 1558835, 2820384, 2260982, 5321463, 9337188, 8965939 ####[facility] [address] [place] [address] MCH (RBC) [Entitic mass] 29.9 pg Normal 27.0-34.0 [facility] Comment on above: Performed By: #### 1 7501486, 3339615, 3492726, 0427268, 1990495, 4305139 ####[place] [address] [place] [address]1757 MCHC (RBC) [Mass/Vol] 33.8 g/dL Normal 31.4-36.0 [facility] Comment on above: Performed By: #### 1 9125199, 4991853, 8474389, 9529206, 6987735, 1731635 ####[place] [address] MCV (RBC) [Entitic vol] 88.4 fL Normal 80.0-100.0 [facility] Comment on above: Performed By: #### 1 1575359, 7259723, 6931649, 6057087, 9088814, 3697867 ####[place] [address] Platelet mean volume (Bld) [Entitic vol] 7.9 fL Normal 6.4-10.8 [facility] Comment on above: Performed By: #### 1 9802559, 2609772, 6027739, 9629520, 6004381, 7896392 ####[place] [address] Platelets (Bld) [#/Vol] 261.0 E9/L Normal 150.0-500.0 [facility] Comment on above: Performed By: #### 1 5821119, 6979494, 3720417, 7505007, 6241235, 3727395 ####[place] [address]357 RBC (Bld) [#/Vol] 4.2 E12/L Low 4.3-5.9 [facility] Comment on above: Performed By: #### 1 1451690, 5185545, 2114265, 7631463, 9442059, 6302000 ####[place] [address]357 WBC corrected for nucl RBC Auto (Bld) [#/Vol] 5.9 E9/L Normal 4.0-11.0 [facility] Comment on above: Performed By: #### 1 2481573, 3300595, 3750773, 4233254, 9828297, 5340885 ####[facility] [address] [place] [address] CHEMISTRYOrdered By: SYSTEM SYSTEM on 07-25-2023 Albumin [...] mL/min/1.73 m2 Normal >=59mL/min/ 1.73 m2 [facility] Chem S Comment [...] reference range: 55-99 mg/[place] [address] m[IU]/mL High 1 - 3 mIU/mL FT [facility] Comment on above: Interpretive Data: G ESTATIONAL AGE HCG RANGE (mIU/mL) NON- <1-3 0.2-1 WEEKS 5-50 1-2 WEEKS 50-500 2-3 WEEKS 100-5,000 3-4 WEEKS 500-10,000 4-5 WEEKS 1,000-50,000 5-6 WEEKS 10,000-100,000 6-8 WEEKS 15,000-200,000 8-12 WEEKS 10,000-100,000 Lipase [Catalytic activity/Vol] 28 U/L Normal 13 - 58 unit/L [facility] Remisol Potassium [Moles/Vol] [...] Consent for Treatmenton 07-15 Consent for Treatment [id number] Normal [facility] Discharge Instructionson Discharge Instructions [id number] Normal [facility] ED Clinical Summaryon 2022 ED [facility]on 07-25-20 ED Note-Physician Normal [facility] Comment on above: Result Comment: Elec tronically Signed By: Jorge Velarde PA-C\.br\Date and Time Signed: 07/25/23 10:02 EDT\.br\Electronically Co-Signed By: Kristian Guillermo DO\.br\Date and Time Co-Signed: 07/25/23 20:25 EDT ED Patient Education Noteon 07-25-2023 ED Patient Education Note Normal [facility] ED Patient Summaryon 023 ED Patient Summary Normal [facility] HEMATOLOGYOrdered By: SYSTEM SYSTEM on 07-25-2023 [...] 4.0 E9/L Normal 2.0 - 7.5 E9/L FT HemeAutoSS HEMATOLOGYOrdered By: Luis Miguel Posadas on [...] E9/L Normal 4.0 - 11.0 E9/L [facility] HemeAutoSS Hep Func Panelon 07-25-2023 Bilirubin.indirect [Mass or moles/Vol] UTC Abnormal 0.1-0.9 [facility] Comment on above: Result Comment: Resu lt verified by Discern Rule. Performed result UTC (Unable to Calculate) was sent as an Alpha code due the inability to calculate a valid numeric value. Performed By: #### 1 1528371, 4585142, 6194960, 3471614, 8372067, 5529021 ####[facility] [address] [place] [address] Albumin [Mass/Vol] 3.1 g/dL Low 3.3-5.0 [facility] Comment on above: Performed By: #### 1 5569303, 3046088, 4788827, 8567289, 3175230, 4425247 ####[place] [address] [place] [address] Albumin/Globulin (S) [Mass conc ratio] 0.9 Low 1.1-2.2 [facility] Comment on above: Performed By: #### 1 9801299, 6335913, 0896874, 4055232, 5208940, 2183987 ####[address] [address] ALP [Catalytic activity/Vol] 35 Int._Unit/L Normal 21-98 [facility] Comment on above: Performed By: #### 1 0005444, 7435177, 9160166, 4394642, 4774246, 2408031 ####[address] [address] ALT No additional P-5'-P [Catalytic activity/Vol] 10 Int._Unit/L Normal 6-46 [facility] Comment on above: Performed By: #### 1 0308004, 4686686, 4005470, 2081081, 1657413, 8811669 ####[address] [address] AST [Catalytic activity/Vol] 18 Int._Unit/L Normal 5-43 [facility] Comment on above: Performed By: #### 1 2588837, 4322811, 7282022, 2091144, 7377578, 8633084 ####[address] [address] Bilirubin [Mass/Vol] 0.4 mg/dL Normal 0.0-1.1 [facility] Comment on above: Performed By: #### 1 6695226, 9203892, 0650783, 0584558, 1612821, 6942692 ####[place] [address] [place] [address] Globulin (S) [Mass/Vol] 3.6 g/dL Normal 1.4-4.0 [facility] Comment on above: Performed By: #### 1 1162488, 4553923, 0123400, 4138204, 2130383, 7399919 ####[facility] [address] [place] [address] Protein [Mass/Vol] 6.7 g/dL Normal 6.0-7.8 [facility] Comment on above: Performed By: #### 1 2959700, 7452304, 8834170, 3549268, 2496330, 6080464 ####[facility] [address] [place] [address] Bilirubin.direct [Mass/Vol] mg/dL Normal 0.1-0.4 [facility] Comment on above: Performed By: #### 1 5002286, 5362208, 9283167, 5959223, 5421458, 0763068 ####[address] [address] Lipase Levelon 07-25-2023 Lipase [Catalytic activity/Vol] 28 U/L Normal 13-58 [facility] Comment on above: Performed By: #### 1 2980445, 9950943, 2043780, 5109591, 2748492, 7947595 ####[facility] [address] [place] [address] UA With Cult Reflexon 2022 Bacteria LM Ql (Urine sed) TRACE Normal Trace [facility] Comment on above: Performed By: #### 2 322927, 19336788 ####[address] [address] Bilirubin Ql (U) Negative Normal Negative [facility] Comment on above: Performed By: #### 2 492249, 25481994 ####[facility] [address] [place] [address] Clarity (U) SL CLOUDY Abnormal Clear [facility] Comment on above: Performed By: #### 2 250060, 01982517 ####[address] [address] Color (U) YELLOW Normal Yellow [facility] Comment on above: Performed By: #### 2 691985, 39830188 ####[facility] [address] [place] [address] Epithelial cells.squamous LM.HPF (Urine sed) [#/Area] 0-2 Normal 0-2 [facility] Comment on above: Performed By: #### 2 219206, 37436213 ####[facility] [address] [place] [address] Glucose Test strip (U) [Mass/Vol] Negative Normal Negative [facility] Comment on above: Performed By: #### 2 786330, 02977886 ####[facility] [address] [place] [address] Hemoglobin Ql (U) Negative Normal Negative [facility] Comment on above: Performed By: #### 2 025253, 50659584 ####[facility] [address] [place] [address] Ketones (U) [Mass/Vol] Negative Normal Negative [facility] Comment on above: Performed By: #### 2 633233, 97767476 ####[facility] [address] [place] [address] [place].plasma/[place] .RBC (Bld) [Mass ratio] 0-3 Normal 0-3 [facility] Comment on above: Performed By: #### 2 862884, 73283079 ####[facility] [address] [place] [address] Nitrite Ql (U) Negative Normal Negative [facility] Comment on above: Performed By: #### 2 691508, 28632979 ####[facility] [address] [place] [address] pH (U) 7.5 [pH] Invalid Interpretation Code 5.0-9.0 [facility] Comment on above: Performed By: #### 2 355001, 19265416 ####[facility] [address] [place] [address] Protein (U) [Mass/Vol] Negative Normal Negative [facility] Comment on above: Performed By: #### 2 863059, 07377152 ####[facility] [address] [place] [address] Specific gravity (U) [Rel density] 1.010 Invalid Interpretation Code 1.005-1.030 [facility] Comment on above: Performed By: #### 2 748531, 14650461 ####[place] [address] Type of Urine collection method Clean Catch Normal [facility] Comment on above: Performed By: #### 2 142433, 06524035 ####[place] [address]357 Urobilinogen Qn (U) 1.0 {Rola'U}/dL Normal 0.0-1.0 [facility] Comment on above: Performed By: #### 2 406137, 40551335 ####[place] [address] WBC Auto Ql (U) 2+ Abnormal Negative [facility] Comment on above: Performed By: #### 2 605666, 78124411 ####[place] [address]357 WBC LM.HPF (Urine sed) [#/Area] 0-5 Normal 0-5 [facility] Comment on above: Performed By: #### 2 799812, 54613693 ####[place] [address] URINALYSISOrdered By: Emy Aiken on 07-25-2023 Bacteria [...] AM) Normal Negative [facility] UA Auto SS [place].plasma/[place] .RBC (Bld) [Mass ratio] 0-3 /HPF [...] Desc Clean Catch (07/25/23 8:33 AM) Normal [facility] UA Auto SS Urobilinogen Qn (U) 1.9744724 {Rola'U}/dL Normal 0.0 - 1.0 EU/dL FT UA Auto SS WBC Auto Ql (U) 2+ *ABN* (07/25/23 8:33 AM) Invalid Interpretation Code Negative [facility] UA Auto SS WBC LM.HPF (Urine sed) [#/Area] 0-5 /HPF Normal 0-5/HPF [facility] UA Auto SS US Limitedon 07-25 US Limited Normal Fish er [facility] eGFRon 07-25-2023 GFR/1.73 sq M.predicted among non-blacks MDRD (S/P/Bld) [Vol rate/Area] 125 mL/min/1.73 m2 Normal >=59 [facility] Comment on above: Order Comment: Order added by Discern Expert. Result Comment: Hot Tamale Worker lucy kidney disease could be indicated at eGFR's of less than 60 mL/min/1.73m2. Kidney failure is indicated at less than 15 mL/min/1.73m2. Performed By: #### 1 4367060, 1227769, 7748117, 9158977, 8413391, 1076721 ####[facility] [address] [place] [address] C Urineon 06-30-2023 Bacteria identified Cx Nom (U) Normal [facility] Comment on above: Performed By: #### 2 213062 ####[facility] [address] [place] [address] Family Medicine Office/Clini c Noteon 06-28-2023 Family Medicine Office/Clinic Note Normal [facility] Comment on above: Result Comment: Elec tronically Signed By: Татьяна NICHOLS, Roverto Barron\.br\Date and Time Signed: 06/28/23 11:41 EDT Patient Educationon 06-28-20 Patient Education Normal [facility] ABO/Rhon 06-14-2023 ABO/Rh Positive Invalid Interpretation Code [facility] Comment on above: Performed By: #### 2 011420 ####[facility] [address] [place] [address] Auto Diffon 06-14-2023 Basophils/100 WBC (Bld) 0.8 % Normal 0.0-2.0 [facility] Comment on above: Order Comment: Order Added by Discern Expert. Performed By: #### 2 319324, 8840615, 9747392, 6614542, 1074416, 73719213 ####[facility] [address] [place] [address] Basophils/Leukocytes Auto (Bld) [Pure # fraction] 0.0 E9/L Normal 0.0-0.2 [facility] Comment on above: Order Comment: Order Added by Discern Expert. Performed By: #### 2 277922, 9840290, 9078875, 2385758, 1209776, 77027850 ####[facility] [address] [place] [address] Eosinophils/100 WBC (Bld) 1.9 % Normal 0.0-8.0 [facility] Comment on above: Order Comment: Order Added by Discern Expert. Performed By: #### 2 253900, 0473380, 9433191, 7172478, 1557511, 69552804 ####[place] [address] [place] [address] Eosinophils/Leukocytes Auto (Bld) [Pure # fraction] 0.1 E9/L Normal 0.0-0.5 [facility] Comment on above: Order Comment: Order Added by Discern Expert. Performed By: #### 2 573131, 4311233, 2929510, 1624184, 2478538, 30895282 ####[place] [address] [place] [address] Lymphocytes/100 WBC (Bld) 24.5 % Normal 14.0-50.0 [facility] Comment on above: Order Comment: Order Added by Gisselle Expert. Performed By: #### 2 887759, 6439541, 5591743, 5921306, 5793531, 15389357 ####[address] [address] Lymphocytes/Leukocytes Auto (Bld) [Pure # fraction] 1.3 E9/L Normal 1.0-4.0 [facility] Comment on above: Order Comment: Order Added by Gisselle Expert. Performed By: #### 2 013873, 1472299, 6283325, 6112089, 3714422, 64404297 ####[place] [address] [place] [address] Monocytes/100 WBC (Bld) 7.8 % Normal 4.0-14.0 [facility] Comment on above: Order Comment: Order Added by Discern Expert. Performed By: #### 2 312716, 2362458, 7544716, 5024691, 4528611, 94762407 ####[address] [address] Monocytes/Leukocytes Auto (Bld) [Pure # fraction] 0.4 E9/L Normal 0.2-1.0 [facility] Comment on above: Order Comment: Order Added by Discern Expert. Performed By: #### 2 988028, 3077380, 6353606, 0267710, 6121578, 28676830 ####[facility] [address] [place] [address] Neutrophils/100 WBC (Bld) 65.0 % Normal 36.0-75.0 [facility] Comment on above: Order Comment: Order Added by Discern Expert. Performed By: #### 2 455144, 7001252, 9669372, 2188739, 1486285, 89004303 ####[facility] [address] [place] [address] Neutrophils/Leukocytes Auto (Bld) [Pure # fraction] 3.5 E9/L Normal 2.0-7.5 [facility] Comment on above: Order Comment: Order Added by Discern Expert. Performed By: #### 2 839179, 8558476, 7505763, 5709669, 4291256, 70006115 ####[place] [address]357 BLOOD BANKOrdered By: Keila Kumar on 06-14-2023 ABO/Rh Interp Positive Invalid Interpretation Code [facility] BB Subsection BMPon 06-14-2023 Creatinine [Mass/Vol] 0.5 mg/dL Normal 0.5-1.3 [facility] Comment on above: Performed By: #### 2 692571, 1899595, 9767603, 4518629, 5771591, 25794063 ####[facility] [address] [place] [address] Urea nitrogen [Mass/Vol] 6 mg/dL Normal 5-21 [facility] Comment on above: Performed By: #### 2 258005, 0160728, 8118388, 8184574, 1590276, 15366345 ####[facility] [address] [place] [address] Urea nitrogen/Creatinine [Mass ratio] 12 No Units Normal 10-20 [facility] Comment on above: Performed By: #### 2 718733, 2451795, 0233263, 0878149, 8085815, 91229425 ####[facility] [address] [address] Anion gap [Moles/Vol] 10 mmol/L Normal 6-16 [facility] Comment on above: Performed By: #### 2 845058, 9867572, 6731410, 6933204, 5837908, 78378120 ####[facility] [address] [place] [address] Calcium [Mass/Vol] 8.7 mg/dL Low 8.9-11.1 [facility] Comment on above: Performed By: #### 2 374083, 3669113, 9226432, 2760526, 6393508, 92409316 ####[facility] [address] [place] [address] Chloride [Moles/Vol] 107 mmol/L Normal 101-111 [facility] Comment on above: Performed By: #### 2 099836, 7462281, 9483095, 0975171, 0322288, 63374402 ####[facility] [address] [facility] [place] [address] CO2 [Moles/Vol] 21 mmol/L Normal 21-31 [facility] Comment on above: Performed By: #### 2 856912, 3796119, 8418584, 7261255, 6278937, 05742352 ####[facility] [address] [place] [address] Glucose [Mass/Vol] 77 mg/dL Normal 55-199 [facility] Comment on above: Result Comment: If t his glucose result represents a fasting glucose, interpretation should refer to the following reference range: 55-99 mg/dL Performed By: #### 2 485006, 8096724, 8066642, 5304113, 2409219, 54978013 ####[facility] [address] [address] Potassium [Moles/Vol] 3.8 mmol/L Normal 3.5-5.3 [facility] Comment on above: Performed By: #### 2 400634, 9093373, 4641301, 8713296, 3143949, 55644043 ####[facility] [address] [place] [address] Sodium [Moles/Vol] 134 mmol/L Low 135-145 [facility] Comment on above: Performed By: #### 2 246575, 8614567, 2112898, 0275914, 7464542, 54080414 ####[facility] [address] [place] [address] BhCG Quanton 06-14-2023 HCG.beta subunit Qn 360748 m[IU]/mL High 1-3 [facility] Comment on above: Result Comment: GEST ATIONAL AGE HCG RANGE (mIU/mL) NON- <1-3 0.2-1 WEEKS 5-50 1-2 WEEKS 50-500 2-3 WEEKS 100-5,000 3-4 WEEKS 500-10,000 4-5 WEEKS 1,000-50,000 5-6 WEEKS 10,000-100,000 6-8 WEEKS 15,000-200,000 8-12 WEEKS 10,000-100,000 Performed By: #### 2 567129 ####[facility] [address] [place] [address] CBC w/ Auto Diffon Erythrocyte distribution width (RBC) [Ratio] 12.6 % Normal 10.9-14.2 [facility] Comment on above: Performed By: #### 2 937198, 8571029, 1987161, 5006204, 2892206, 79359655 ####[facility] [address] [place] [address] Hematocrit (Bld) [Volume fraction] 39.9 % Normal 34.0-46.0 [facility] Comment on above: Performed By: #### 2 504123, 8014470, 8724567, 9642705, 1496768, 86513945 ####[facility] [address] [place] [address] Hemoglobin (Bld) [Mass/Vol] 13.4 g/dL Normal 12.0-16.0 [facility] Comment on above: Performed By: #### 2 435479, 9855195, 5340935, 2107063, 7175549, 80165458 ####[address] [address] MCH (RBC) [Entitic mass] 29.8 pg Normal 27.0-34.0 [facility] Comment on above: Performed By: #### 2 511580, 8775997, 5139316, 3547118, 3700670, 12458502 ####[address] [address] MCHC (RBC) [Mass/Vol] 33.6 g/dL Normal 31.4-36.0 [facility] Comment on above: Performed By: #### 2 266164, 7438372, 6374024, 0137962, 9978829, 46410423 ####[address] [address] MCV (RBC) [Entitic vol] 88.8 fL Normal 80.0-100.0 [facility] Comment on above: Performed By: #### 2 794332, 2667795, 2105016, 8466292, 3970722, 97288261 ####[address] [address] Platelet mean volume (Bld) [Entitic vol] 8.4 fL Normal 6.4-10.8 [facility] Comment on above: Performed By: #### 2 519292, 0430327, 2324370, 7259943, 1545547, 06047808 ####[address] [address] Platelets (Bld) [#/Vol] 225.0 E9/L Normal 150.0-500.0 [facility] Comment on above: Performed By: #### 2 709349, 3188726, 7523455, 1296688, 2542881, 04391007 ####[address] [address] RBC (Bld) [#/Vol] 4.5 E12/L Normal 4.3-5.9 [facility] Comment on above: Performed By: #### 2 118070, 1188633, 9706255, 8278411, 0085478, 63672264 ####[facility] [address] [place] [address] WBC corrected for nucl RBC Auto (Bld) [#/Vol] 5.4 E9/L Normal 4.0-11.0 [facility] Comment on above: Performed By: #### 2 268532, 6567743, 4699089, 0253888, 0794636, 16659658 ####[facility] [address] [place] [address] CHEMISTRYOrdered By: SYSTEM SYSTEM on 06-14-2023 Albumin [...] 21 mmol/L Normal 21 - 31 mmol/L FT [...] 199 mg/dL FT Remisol HCG.beta subunit Qn 111038 m[IU]/mL High 1 - 3 mIU/mL FT [...] Consent for Treatmenton 05-17 Consent for Treatment [id number]:12 [id number] Normal [facility] ED Clinical Summaryon 2022 ED Clinical Summary Normal [facility] ED Note-Physicianon 06-14-20 ED Note-Physician Normal [facility] Comment on above: Result Comment: Elec tronically Signed By: Jos Ugalde PA-C\.br\Date and Time Signed: 06/14/23 11:58 EDT\.br\Electronically Co-Signed By: Kristian Guillermo DO.medina\Date and Time Co-Signed: 06/14/23 17:02 EDT ED Patient Education Noteon 06-14-2023 ED Patient Education Note Normal [facility] ED Patient Summaryon 023 ED Patient Summary Normal [facility] HEMATOLOGYOrdered By: SYSTEM SYSTEM on 06-14-2023 [...] 33.6 g/dL Normal 31.4 - 36.0 gm/dL FT HemeAutoSS MCV (RBC) [Entitic vol] 88.8 fL Normal 80.0 - 100.0 fL FT [...] Bilirubin.indirect [Mass or moles/Vol] UTC Abnormal 0.1-0.9 [facility] Comment on above: Result Comment: Resu lt verified by Discern Rule. Performed result UTC (Unable to Calculate) was sent as an Alpha code due the inability to calculate a valid numeric value. Performed By: #### 2 319525, 9922782, 9189313, 4172714, 3581377, 52161414 ####[facility] [address] [place] [address] Albumin [Mass/Vol] 3.5 g/dL Normal 3.3-5.0 [facility] Comment on above: Performed By: #### 2 732673, 9528744, 3330151, 2032688, 4530895, 66282226 ####[facility] [address] [place] [address] Albumin/Globulin (S) [Mass conc ratio] 1.1 Normal 1.1-2.2 [facility] Comment on above: Performed By: #### 2 143726, 1901101, 1906069, 9387207, 8569224, 65906258 ####[facility] [address] [place] [address] ALP [Catalytic activity/Vol] 34 Int._Unit/L Normal 21-98 [facility] Comment on above: Performed By: #### 2 210488, 5572857, 0721626, 5938178, 5710233, 75831925 ####[facility] [address] [place] [address] ALT No additional P-5'-P [Catalytic activity/Vol] 13 Int._Unit/L Normal 6-46 [facility] Comment on above: Performed By: #### 2 115563, 2634742, 0379865, 7042124, 0321410, 10064601 ####[facility] [address] [place] [address] AST [Catalytic activity/Vol] 17 Int._Unit/L Normal 5-43 [facility] [facility] Comment on above: Performed By: #### 2 239282, 4128682, 7599062, 2865724, 2168523, 07455303 ####[facility] [address] [place] [address] Bilirubin [Mass/Vol] 0.6 mg/dL Normal 0.0-1.1 [facility] Comment on above: Performed By: #### 2 343560, 5296118, 5081245, 2620528, 3511050, 78808169 ####[facility] [address] [place] [address] Globulin (S) [Mass/Vol] 3.3 g/dL Normal 1.4-4.0 [facility] Comment on above: Performed By: #### 2 642038, 2452382, 5759109, 7242714, 7898317, 10042995 ####[facility] [address] [place] [address] Protein [Mass/Vol] 6.8 g/dL Normal 6.0-7.8 [facility] Comment on above: Performed By: #### 2 090301, 9384127, 7556357, 7325639, 1614921, 04341887 ####[facility] [address] [place] [address] Bilirubin.direct [Mass/Vol] mg/dL Normal 0.1-0.4 [facility] Comment on above: Performed By: #### 2 213882, 4595750, 1385714, 6754299, 7565626, 85414083 ####[facility] [address] [place] [address] Lipase Levelon 06-14-2023 Lipase [Catalytic activity/Vol] 28 U/L Normal 13-58 [facility] Comment on above: Performed By: #### 2 494350, 1460381, 2232891, 1912067, 3602392, 17319954 ####[facility] [address] [place] [address] Progress Note-Nurseon 2022 Progress Note-Nurse MAHESH Hinds verbalize d she was unable to locate patient at this time Normal [facility] UA With Cult Reflexon 2022 Bacteria LM Ql (Urine sed) TRACE Normal Trace [facility] Comment on above: Performed By: #### 1 0859542 ####[facility] [address] [place] [address] Bilirubin Ql (U) Negative Normal Negative [facility] Comment on above: Performed By: #### 1 2014443 ####[facility] [address] [place] [address] Clarity (U) CLEAR Normal Clear [facility] Comment on above: Performed By: #### 1 5443628 ####[facility] [address] [place] [address] Color (U) YELLOW Normal Yellow [facility] Comment on above: Performed By: #### 1 7938979 ####[facility] [address]vx[address]rd[address] [place] [address] Epithelial cells.squamous LM.HPF (Urine sed) [#/Area] 3-4 Normal 0-2 [facility] Comment on above: Performed By: #### 1 5775436 ####[facility] [address] [place] [address] Glucose Test strip (U) [Mass/Vol] Negative Normal Negative [facility] Comment on above: Performed By: #### 1 7202268 ####[facility] [address] [place] [address] Hemoglobin Ql (U) Negative Normal Negative [facility] Comment on above: Performed By: #### 1 2882759 ####[place] [place] [address] Ketones (U) [Mass/Vol] Negative Normal Negative [facility] Comment on above: Performed By: #### 1 8565794 ####[address] [address] [place].plasma/[place] .RBC (Bld) [Mass ratio] 0-3 Normal 0-3 [facility] Comment on above: Performed By: #### 1 5921466 ####[address] [address] Mucus Ql (Urine sed) TRACE Normal [facility] Comment on above: Performed By: #### 1 3280560 ####[address] [address] Nitrite Ql (U) Negative Normal Negative [facility] Comment on above: Performed By: #### 1 8054002 ####[address] [address] pH (U) 6.5 [pH] Invalid Interpretation Code 5.0-9.0 [facility] Comment on above: Performed By: #### 1 7687243 ####[address] [address] Protein (U) [Mass/Vol] Negative Normal Negative [facility] Comment on above: Performed By: #### 1 7142448 ####[address] [address] Specific gravity (U) [Rel density] 1.015 Invalid Interpretation Code 1.005-1.030 [facility] Comment on above: Performed By: #### 1 0695127 ####[address] [address] Type of Urine collection method Clean Catch Normal [facility] Comment on above: Performed By: #### 1 1836581 ####[facility] [address] [place] [address] Urobilinogen Qn (U) 0.2 {Rola'U}/dL Normal 0.0-1.0 [facility] Comment on above: Performed By: #### 1 8203443 ####[facility] [address] [place] [address] WBC Auto Ql (U) TRACE Abnormal Negative [facility] Comment on above: Performed By: #### 1 7514622 ####[facility] [address]osil[address] [place] [address] WBC LM.HPF (Urine sed) [#/Area] 0-5 Normal 0-5 [facility] Comment on above: Performed By: #### 1 4075340 ####[facility] [address] [place] [id number] URINALYSISOrdered By: An Mccarty on 06-14-2023 Bacteria LM Ql (Urine sed) Trace /HPF Normal Trace/HPF [facility] Auto SS Bilirubin Ql (U) Negative (06/14/23 10:13 AM) Normal Negative [facility] UA Auto SS Clarity (U) Clear (06/14/23 10:13 AM) Normal Clear [facility] UA Auto SS [...] AM) Normal Negative [facility] UA Auto SS [place].plasma/[place] .RBC (Bld) [Mass ratio] 0-3 /HPF [...] [facility] UA Auto SS Urobilinogen Qn (U) 0.5068474 {Rola'U}/dL Normal 0.0 - 1.0 EU/dL [facility] UA Auto SS WBC Auto Ql (U) Trace *ABN* (06/14/23 10:13 AM) Invalid Interpretation Code Negative [facility] UA Auto SS WBC LM.HPF (Urine sed) [#/Area] 0-5 /HPF Normal 0-5/HPF [facility] UA Auto SS US 1st Trimesteron 06-14-2023 US 1st Trimester Normal [facility] eGFRon 06-14-2023 GFR/1.73 sq M.predicted among non-blacks MDRD (S/P/Bld) [Vol rate/Area] 130 mL/min/1.73 m2 Normal >=59 [facility] Comment on above: Order Comment: Order added by Discern Expert. Result Comment: Hot Tamale Worker lucy kidney disease could be indicated at eGFR's of less than 60 mL/min/1.73m2. Kidney failure is indicated at less than 15 mL/min/1.73m2. Performed By: #### 2 734188, 0780704, 9396985, 1036794, 8741540, 38358878 ####[facility] [address] [place] [address] CHEMISTRYOrdered By: SYSTEM SYSTEM on 06-12-2023 TSH Qn 3.80 m[IU]/L Normal 0.34 - 5.60 mcIU/mL [facility] Remisol Consent for Treatmenton 05-16 Consent for Treatment [id number]#1.00CD:12 7 Normal [facility] Physician Orderon 06-12-2023 Physician Order [id number]#1.00CD:12 7 Normal [facility] TSHon 06-12-2023 TSH Qn 3.80 m[IU]/L Normal 0.34-5.60 [facility] Comment on above: Performed By: #### 2 004897 ####[facility] [address] [place] [address] BhCG Quanton 05-22-2023 HCG.beta subunit Qn 112776 m[IU]/mL High 1-3 [facility] Comment on above: Result Comment: GEST ATIONAL AGE HCG RANGE (mIU/mL) NON- <1-3 0.2-1 WEEKS 5-50 1-2 WEEKS 50-500 2-3 WEEKS 100-5,000 3-4 WEEKS 500-10,000 4-5 WEEKS 1,000-50,000 5-6 WEEKS 10,000-100,000 6-8 WEEKS 15,000-200,000 8-12 WEEKS 10,000-100,000 Performed By: #### 2 796267 ####[facility] [address] [place] [address] Discharge Instructionson Discharge Instructions [id number]#[id number]:1 27 Normal [facility] ED Clinical Summaryon 2022 ED Clinical Summary Normal [facility] ED Note-Physicianon 05-22-20 23 ED Note-Physician Normal [facility] Comment on above: Result Comment: Elec tronically Signed By: Gopi Rodriguez DO\Patriciabr\Date and Time Signed: 05/21/23 23:17 EDT ED Patient Education Noteon 05-22-2023 ED Patient Education Note Normal [facility] ED Patient Summaryon 023 ED Patient Summary Normal [facility] UA With Cult Reflexon 2022 Bacteria LM Ql (Urine sed) TRACE Normal Trace [facility] Comment on above: Performed By: #### 1 2330125 ####[facility] [address] [place] [address] Bilirubin Ql (U) Negative Normal Negative [facility] Comment on above: Performed By: #### 1 4238555 ####[address] [address] Clarity (U) CLEAR Normal Clear [facility] Comment on above: Performed By: #### 1 9305408 ####[address] [address] Color (U) DARK YELLO Abnormal Yellow [facility] Comment on above: Performed By: #### 1 1069738 ####[address] [address] Epithelial cells.squamous LM.HPF (Urine sed) [#/Area] 0-2 Normal 0-2 [facility] Comment on above: Performed By: #### 1 9884656 ####[facility] [address] [place] [address] Glucose Test strip (U) [Mass/Vol] Negative Normal Negative [facility] Comment on above: Performed By: #### 1 5177932 ####[address] [place] [address] Hemoglobin Ql (U) TRACE Abnormal Negative [facility] Comment on above: Performed By: #### 1 7973404 ####[facility] [address] [place] [address] Ketones (U) [Mass/Vol] TRACE Abnormal Negative [facility] Comment on above: Performed By: #### 1 0436804 ####[address] [address] [place].plasma/[place] .RBC (Bld) [Mass ratio] 4-20 Normal 0-3 [facility] Comment on above: Performed By: #### 1 7552841 ####[facility] [address] [address] Mucus Ql (Urine sed) 1+ Normal [facility] Comment on above: Performed By: #### 1 1592056 ####[address] [address] Nitrite Ql (U) Negative Normal Negative [facility] Comment on above: Performed By: #### 1 7439270 ####[address] [address] pH (U) 6.0 [pH] Invalid Interpretation Code 5.0-9.0 [facility] Comment on above: Performed By: #### 1 6289779 ####[place] [address] Protein (U) [Mass/Vol] 2+ Abnormal Negative [facility] Comment on above: Performed By: #### 1 3079606 ####[place] [address] Specific gravity (U) [Rel density] >=1.030 Invalid Interpretation Code 1.005-1.030 [facility] Comment on above: Performed By: #### 1 0433687 ####[place] [address] Type of Urine collection method Clean Catch Normal [facility] Comment on above: Performed By: #### 1 0369163 ####[address] [address] Urobilinogen Qn (U) 0.2 {Rola'U}/dL Normal 0.0-1.0 [facility] Comment on above: Performed By: #### 1 0303174 ####[address] [address] WBC Auto Ql (U) Negative Normal Negative [facility] Comment on above: Performed By: #### 1 2687814 ####[address] [address] WBC LM.HPF (Urine sed) [#/Area] 0-5 Normal 0-5 [facility] Comment on above: Performed By: #### 1 1727397 ####[facility] [address] [place] [address] US 1st Trimesteron 05-22-2023 US 1st Trimester Normal [facility] Auto Diffon 05-21-2023 Basophils/100 WBC (Bld) 1.0 % Normal 0.0-2.0 [facility] Comment on above: Order Comment: Order Added by Discern Expert. Performed By: #### 2 501510, 2677679, 78267827, 11699806, 5297863, 8168707, 7372113 ####[facility] [address] [place] [address] Basophils/Leukocytes Auto (Bld) [Pure # fraction] 0.1 E9/L Normal 0.0-0.2 [facility] Comment on above: Order Comment: Order Added by Discern Expert. Performed By: #### 2 745358, 4753036, 85944127, 54374184, 5314500, 9393751, 9561231 ####[facility] [address] [place] [address] Eosinophils/100 WBC (Bld) 1.5 % Normal 0.0-8.0 [facility] Comment on above: Order Comment: Order Added by Discern Expert. Performed By: #### 2 863845, 2614400, 23325294, 05019062, 2172887, 0809617, 8260086 ####[facility] [address] [place] [address] Eosinophils/Leukocytes Auto (Bld) [Pure # fraction] 0.1 E9/L Normal 0.0-0.5 [facility] Comment on above: Order Comment: Order Added by Discern Expert. Performed By: #### 2 783849, 2459514, 22035844, 53716119, 5224010, 0484735, 7216191 ####[facility] [address] [place] [address] Lymphocytes/100 WBC (Bld) 36.6 % Normal 14.0-50.0 [facility] Comment on above: Order Comment: Order Added by Discern Expert. Performed By: #### 2 894664, 2238687, 37164689, 24102820, 5700533, 9796042, 1505185 ####[facility] [address] [place] [address] Lymphocytes/Leukocytes Auto (Bld) [Pure # fraction] 2.5 E9/L Normal 1.0-4.0 [facility] Comment on above: Order Comment: Order Added by Discern Expert. Performed By: #### 2 137507, 9953600, 65634879, 07818519, 5413039, 1192962, 0873890 ####[address] [address] Monocytes/100 WBC (Bld) 8.2 % Normal 4.0-14.0 [facility] Comment on above: Order Comment: Order Added by Gisselle Expert. Performed By: #### 2 971919, 2606519, 78534180, 74532545, 6579912, 6070828, 8616894 ####[facility] [address] [place] [address] Monocytes/Leukocytes Auto (Bld) [Pure # fraction] 0.6 E9/L Normal 0.2-1.0 [facility] Comment on above: Order Comment: Order Added by Gisselle Expert. Performed By: #### 2 950216, 4533132, 04960025, 50113149, 5551277, 1059569, 8968664 ####[place] [address] [place] [address] Neutrophils/100 WBC (Bld) 52.7 % Normal 36.0-75.0 [facility] Comment on above: Order Comment: Order Added by Discern Expert. Performed By: #### 2 891249, 0913478, 88096914, 18439543, 0758343, 8821816, 9674372 ####[facility] [address] [place] [address] Neutrophils/Leukocytes Auto (Bld) [Pure # fraction] 3.6 E9/L Normal 2.0-7.5 [facility] Comment on above: Order Comment: Order Added by Discern Expert. Performed By: #### 2 856664, 2542851, 44327756, 31620298, 5487847, 0401512, 0394346 ####[facility] [address] [place] [address] BMPon 05-21-2023 Creatinine [Mass/Vol] 0.7 mg/dL Normal 0.5-1.3 [facility] Comment on above: Performed By: #### 2 663542, 3341811, 01096058, 36942350, 3919957, 9862345, 5872519 ####[facility] [address] [place] [address] Urea nitrogen [Mass/Vol] 8 mg/dL Normal 5-21 [facility] Comment on above: Performed By: #### 2 548270, 0061644, 49737705, 84820763, 5869367, 7392210, 7843860 ####[facility] [address] [place] [address] Urea nitrogen/Creatinine [Mass ratio] 11 No Units Normal 10-20 [facility] Comment on above: Performed By: #### 2 509991, 0796394, 23661882, 18897043, 2274081, 5922678, 7838582 ####[facility] [address] [place] [address] Anion gap [Moles/Vol] 12 mmol/L Normal 6-16 [facility] Comment on above: Performed By: #### 2 643066, 1456067, 90511584, 68418455, 6586772, 4868493, 8562011 ####[facility] [address] [place] [address] Calcium [Mass/Vol] 9.2 mg/dL Normal 8.9-11.1 [facility] Comment on above: Performed By: #### 2 748039, 6885875, 69821981, 62359941, 6413731, 5372451, 9953797 ####[facility] [address] [place] [address] Chloride [Moles/Vol] 104 mmol/L Normal 101-[address] [facility] Comment on above: Performed By: #### 2 224948, 4817203, 50602198, 52021512, 1551393, 8099628, 0171222 ####[facility] [address] [place] [address] CO2 [Moles/Vol] 24 mmol/L Normal 21-31 [facility] Comment on above: Performed By: #### 2 198233, 0580982, 19240436, 57382422, 3116942, 2897670, 2353098 ####[facility] [address] [place] [address] Glucose [Mass/Vol] 87 mg/dL Normal 55-199 [facility] Comment on above: Result Comment: If t his glucose result represents a fasting glucose, interpretation should refer to the following reference range: 55-99 mg/dL Performed By: #### 2 339157, 2841029, 36263892, 53419089, 8385826, 4120246, 7622864 ####[facility] [address] [place] [address] Potassium [Moles/Vol] 3.2 mmol/L Low 3.5-5.3 [facility] Comment on above: Performed By: #### 2 739419, 0814638, 29921182, 84526667, 6120354, 3793912, 4655690 ####[facility] [address] [place] [address] Sodium [Moles/Vol] 137 mmol/L Normal 135-145 [facility] Comment on above: Performed By: #### 2 838416, 6507600, 04494796, 45151734, 3860684, 5070136, 2566243 ####[facility] [address] [place] [address] CBC w/ Auto Diffon 3 Erythrocyte distribution width (RBC) [Ratio] 13.3 % Normal 10.9-14.2 [facility] Comment on above: Performed By: #### 2 595509, 8308066, 39792078, 82201946, 3935190, 0180210, 5912133 ####[facility] [address] [place] [address] Hematocrit (Bld) [Volume fraction] 39.0 % Normal 34.0-46.0 [facility] Comment on above: Performed By: #### 2 266198, 7809083, 07664824, 59273409, 0612444, 1413480, 0435076 ####[facility] [address] [place] [address] Hemoglobin (Bld) [Mass/Vol] 13.3 g/dL Normal 12.0-16.0 [facility] Comment on above: Performed By: #### 2 362680, 6090999, 49361485, 72727169, 6526120, 4906607, 3520532 ####[address] [address] MCH (RBC) [Entitic mass] 30.3 pg Normal 27.0-34.0 [facility] Comment on above: Performed By: #### 2 918150, 9949446, 49261858, 46570345, 8443942, 6507185, 4258887 ####[address] [address] MCHC (RBC) [Mass/Vol] 34.2 g/dL Normal 31.4-36.0 [facility] Comment on above: Performed By: #### 2 127454, 5577351, 28704946, 45772462, 4542160, 7819020, 2461090 ####[address] [address] MCV (RBC) [Entitic vol] 88.7 fL Normal 80.0-100.0 [facility] Comment on above: Performed By: #### 2 966511, 4467990, 86138268, 07059222, 4039413, 1528331, 4943220 ####[facility] [address] [place] [address] Platelet mean volume (Bld) [Entitic vol] 7.8 fL Normal 6.4-10.8 [facility] Comment on above: Performed By: #### 2 325761, 1597560, 89351656, 83790601, 3866106, 6399159, 5107141 ####[facility] [address] [place] [address] Platelets (Bld) [#/Vol] 225.0 E9/L Normal 150.0-500.0 [facility] Comment on above: Performed By: #### 2 967049, 1892767, 90631860, 39965336, 1190829, 9992052, 4850969 ####[facility] [address] [place] [address] RBC (Bld) [#/Vol] 4.4 E12/L Normal 4.3-5.9 [facility] Comment on above: Performed By: #### 2 094052, 0689367, 12873046, 64513528, 1304926, 3974871, 9112042 ####[facility] [address] [place] [address] WBC corrected for nucl RBC Auto (Bld) [#/Vol] 6.8 E9/L Normal 4.0-11.0 [facility] Comment on above: Performed By: #### 2 523481, 7047866, 90217066, 87421988, 2771201, 5906927, 6800593 ####[facility] [address] [place] [address] CHEMISTRYOrdered By: SYSTEM SYSTEM on 05-21-2023 HCG.beta subunit Qn 879597 m[IU]/mL High 1 - 3 mIU/mL [facility] [...] 120 mL/min/1.73 m2 Normal >=59mL/min/ 1.73 m2 [facility] Chem S Globulin [...] Remisol Consent for Treatmenton Consent for Treatment [id number]#1.00CD:12 7 Normal [facility] HEMATOLOGYOrdered By: SYSTEM SYSTEM on 05-21-2023 [...] Bilirubin.indirect [Mass or moles/Vol] UTC Abnormal 0.1-0.9 [facility] Comment on above: Result Comment: Resu lt verified by Discern Rule. Performed result UTC (Unable to Calculate) was sent as an Alpha code due the inability to calculate a valid numeric value. Performed By: #### 2 711915, 6421490, 26945778, 80057828, 5140603, 7198546, 5348942 ####[facility] [address] [place] [address] Albumin [Mass/Vol] 3.8 g/dL Normal 3.3-5.0 [facility] Comment on above: Performed By: #### 2 829133, 2086872, 83337544, 14899976, 4566745, 5471448, 2705444 ####[facility] [address] [place] [address] Albumin/Globulin (S) [Mass conc ratio] 1.2 Normal 1.1-2.2 [facility] Comment on above: Performed By: #### 2 015511, 4446736, 75191396, 91947426, 8449332, 8290236, 0950670 ####[facility] [address] [place] [address] ALP [Catalytic activity/Vol] 42 Int._Unit/L Normal 21-98 [facility] Comment on above: Performed By: #### 2 688266, 7510000, 41671185, 38392994, 5055327, 5929262, 7539588 ####[address] [address] ALT No additional P-5'-P [Catalytic activity/Vol] 13 Int._Unit/L Normal 6-46 [facility] Comment on above: Performed By: #### 2 754757, 2766821, 81649038, 39802432, 6015598, 6972364, 2112937 ####[facility] [address] [place] [address] AST [Catalytic activity/Vol] 14 Int._Unit/L Normal 5-43 [facility] Comment on above: Performed By: #### 2 241962, 2528921, 75265092, 82993878, 1927698, 4750755, 7070440 ####[facility] [address] [place] [address] Bilirubin [Mass/Vol] 0.5 mg/dL Normal 0.0-1.1 [facility] Comment on above: Performed By: #### 2 366272, 9739703, 03473985, 76319683, 7335499, 0223705, 3701426 ####[facility] [address] [place] [address] Globulin (S) [Mass/Vol] 3.1 g/dL Normal 1.4-4.0 [facility] Comment on above: Performed By: #### 2 127248, 1989182, 53066106, 91338255, 8591544, 2292807, 3713752 ####[facility] [address] [place] [address] Protein [Mass/Vol] 6.9 g/dL Normal 6.0-7.8 [facility] Comment on above: Performed By: #### 2 205410, 4524540, 64452635, 05938660, 0361475, 8538708, 6965099 ####[facility] [address] [place] [address] Bilirubin.direct [Mass/Vol] mg/dL Normal 0.1-0.4 [facility] Comment on above: Performed By: #### 2 368636, 6887804, 09370788, 44842340, 3714736, 7497799, 1431119 ####[facility] [address] [place] [address] Lipase Levelon 05-21-2023 Lipase [Catalytic activity/Vol] 31 U/L Normal 13-58 [facility] Comment on above: Performed By: #### 2 078955, 8828933, 32163727, 88522787, 8131729, 1615741, 4992916 ####[facility] [address] [place] [address] Troponin 0 Hr.on 05-21-2023 Troponin I.cardiac [Mass/Vol] 2.50 pg/mL Low 10.10-27.10 [facility] Comment on above: Result Comment: The 95% CI (Confidence Interval) PPV (Positive Predictive Value) for myocardial infarction in females is 38 pg/mL, in males 51 pg/mL. The results should be used in conjunction with clinical conditions of myocardial infarction.(Access High Sensitivity Troponin I Instructions For Use, [place], May 2018) Performed By: #### 2 159978, 7839143, 25926714, 08519753, 4316101, 2105780, 8222371 ####[facility] [address] [place] [address] URINALYSISOrdered By: Jose Miguel nelson on 05-21-2023 [...] Interpretation Code Negative [facility] UA Auto SS [place].plasma/[place] .RBC (Bld) [Mass ratio] 4-20 /HPF [...] [facility] UA Auto SS Urobilinogen Qn (U) 0.2221077 {Rola'U}/dL Normal 0.0 - 1.0 EU/dL [facility] UA Auto SS WBC Auto Ql (U) Negative (05/21/23 10:17 PM) Normal Negative [facility] UA Auto SS WBC LM.HPF (Urine sed) [#/Area] 0-5 /HPF Normal 0-5/HPF [facility] UA Auto SS eGFRon 05-21-2023 GFR/1.73 sq M.predicted among non-blacks MDRD (S/P/Bld) [Vol rate/Area] 120 mL/min/1.73 m2 Normal >=59 [facility] Comment on above: Order Comment: Order added by Discern Expert. Result Comment: Hot Tamale Worker lucy kidney disease could be indicated at eGFR's of less than 60 mL/min/1.73m2. Kidney failure is indicated at less than 15 mL/min/1.73m2. Performed By: #### 2 582911, 2547906, 87131507, 21186770, 5551971, 2131661, 0395759 ####[facility] [address] [place] [address] PAP [id number] 05-03-2023 C. trachomatis rRNA MAHAD+probe Ql (Cvx) Negative Invalid Interpretation Code Negative [facility] Comment on above: Performed By: #### 3 [id number] ####[facility] [address] [place] [address] Cytology report Cyto stain Doc (Cvx/Vag) Note Invalid Interpretation Code [facility] Comment on above: Result Comment: TEST S RESULT FLAG UNITS REF RANGE LAB Clinician Provided Cytology InformationSource.............EndocervixNo. of containers..01 ThinPrep VialDIAGNOSIS: 01NEGATIVE FOR INTRAEPITHELIAL LESION OR MALIGNANCY.Specimen adequacy: 01Satisfactory for evaluation. Endocervical and/or squamous metaplasticcells (endocervical component) are present.Performed by: Eliana Shea Feather Cutting Machine Feeder (ASCP). 01Note: Note 01The Pap smear is [...] Low,>-Panic High,A-Abnormal,AA-Critical Abnormal -----Performed at:01 WB [facility] [address] [place] [address]YgevfkJoya Walton MD, Performed By: #### 3 [id number] ####[facility] [address] [place] [address] N. gonorrhoeae rRNA MAHAD+probe Ql (Cvx) Negative Invalid Interpretation Code Negative [facility] Comment on above: Result Comment: Perf ormed at: WB [facility] [address] [id number] MD Anton HinsonPerformed at: =G [facility] [address] [id number] MD Anton Hinson Performed By: #### 3 [id number] ####[facility] F[address] [place] [address] C Urineon 05-02-2023 Bacteria identified Cx Nom (U) Normal [facility] Comment on above: Performed By: #### 2 553790 ####[facility] [address] [place] [address] HIV Screen 4th Generation wR fxon 05-01-2023 HIV 1+2 Ab+HIV1 p24 Ag IA Ql Non-Reactive Invalid Interpretation Code Non Reactive [facility] Comment on above: Result Comment: HIV NegativeHIV-1/HIV-2 antibodies and HIV-1 p24 antigen were NOT detected.There is no laboratory evidence of HIV infection.Performed at: [facility] [id number] PhD Caroline East Performed By: #### 1 [id number], 86279669, 811607036, 9851738, 4810860 ####[place] [place] [address] Hep Bs Agon 05-01-2023 HBV surface Ag IA Ql Negative Invalid Interpretation Code Negative [facility] Comment on above: Result Comment: Perf ormed at: [facility] [id number] PhD Caroline East Performed By: #### 1 85600884, 19586612, 037505837, 6629704, 4079665 ####[address] [place] [address] RPR with Conf Rfxon 05-01-20 23 Reagin Ab RPR Ql (S) Non-Reactive Invalid Interpretation Code Non Reactive [facility] Comment on above: Result Comment: [facility] [id number] PhD Caroline East Performed By: #### 1 37559000, 21762225, 995020140, 8135392, 6412168 ####[address] [place] [address] Rubella IgGon 05-01-2023 Rubella virus IgG Qn (S) [IU]/mL Low Immune >0.99 [facility] Comment on above: Result Comment: Non- immune <0.90Equivocal 0.90 - 0.99Immune >0.99Performed at: [facility] [address] [place], [place] [id number] PhD Caroline East Performed By: #### 1 40258566, 52630340, 795863803, 4835125, 3853931 ####[facility] [address]ef[address] [place] [address] ABO/Rhon 04-30-2023 ABO/Rh Positive Invalid Interpretation Code [facility] Comment on above: Performed By: #### 2 175524, 69037648 ####[facility] [address] [place] [address] ABSCon 04-30-2023 ABSC Gel Interp Negative Normal [facility] Comment on above: Performed By: #### 2 447597, [id number] ####[address] [address] BLOOD BANKOrdered By: Diamond Junior on 04-30-2023 ABO/Rh Interp Positive Invalid Interpretation Code [facility] BB Subsection ABSC Gel Interp Negative (04/30/23 9:30 AM) Normal [facility] BB Subsection BhCG Quanton 04-30-2023 [place] [address] m[IU]/mL High 1-3 F [facility] Comment on above: Result Comment: GEST ATIONAL AGE HCG RANGE (mIU/mL) NON- <1-3 0.2-1 WEEKS 5-50 1-2 WEEKS 50-500 2-3 WEEKS 100-5,000 3-4 WEEKS 500-10,000 4-5 WEEKS 1,000-50,000 5-6 WEEKS 10,000-100,000 6-8 WEEKS 15,000-200,000 8-12 WEEKS 10,000-100,000 Performed By: #### 2 590393 ####[facility] [address] [place] [address] CBC w/Indiceson 04-30-2023 Erythrocyte distribution width (RBC) [Ratio] 13.7 % Normal 10.9-14.2 [facility] Comment on above: Performed By: #### 1 46753217, 29325873, 188956056, 4131490, 9722192 ####[facility] [address] [place] [address] Hematocrit (Bld) [Volume fraction] 40.7 % Normal 34.0-46.0 [facility] Comment on above: Performed By: #### 1 42516593, 96822431, 357017798, 4652865, 5800423 ####[address] [place] [address]1757 Hemoglobin (Bld) [Mass/Vol] 13.8 g/dL Normal 12.0-16.0 [facility] Comment on above: Performed By: #### 1 59813737, 19121853, 714055953, 2477600, 1086030 ####[address] [address] MCH (RBC) [Entitic mass] 30.5 pg Normal 27.0-34.0 [facility] Comment on above: Performed By: #### 1 62965834, 55070416, 560073876, 6537487, 9193877 ####[place] [address] MCHC (RBC) [Mass/Vol] 33.9 g/dL Normal 31.4-36.0 [facility] Comment on above: Performed By: #### 1 10730752, 12961297, 891021998, 3764933, 3252935 ####[place] [address] MCV (RBC) [Entitic vol] 89.9 fL Normal 80.0-100.0 [facility] Comment on above: Performed By: #### 1 90990392, 34362253, 195283264, 7366370, 3764780 ####[address] [place] [address] Platelet mean volume (Bld) [Entitic vol] 8.2 fL Normal 6.4-10.8 [facility] Comment on above: Performed By: #### 1 95009021, 33666440, 066468618, 6934550, 5424785 ####[facility] [address] [place] [address] Platelets (Bld) [#/Vol] 279.0 E9/L Normal 150.0-500.0 [facility] Comment on above: Performed By: #### 1 79571582, 96578941, 465789621, 7714480, 8208324 ####[facility] [address] [place] [address] RBC (Bld) [#/Vol] 4.5 E12/L Normal 4.3-5.9 [facility] Comment on above: Performed By: #### 1 63992935, 60281858, 501821113, 1328417, 0434534 ####[facility] [address] [place] [address] WBC corrected for nucl RBC Auto (Bld) [#/Vol] 5.8 E9/L Normal 4.0-11.0 [facility] Comment on above: Performed By: #### 1 47036837, 19215049, 876940720, 1966976, 4506748 ####[facility] [address] [place] [address] CHEMISTRYOrdered By: SYSTEM SYSTEM on 04-30-2023 [place] [address] m[IU]/mL High 1 - 3 mIU/mL [facility] Remisol Consent for Treatmenton 04-14 Consent for Treatment [id number]#1.00CD:12 7 Normal [facility] HEMATOLOGYOrdered By: Temi Romero on 04-30-2023 [...] 5.8 E9/L Normal 4.0 - 11.0 E9/L [facility] HemeAutoSS PAP [id number] 04-30-2023 Collection Technique BRUSH-SPATULA Normal F [facility] Comment on above: Performed By: #### 3 [id number] ####[facility] [address] [place] [address] Gynecological Body Site ENDOCERVIX Normal [facility] Comment on above: Performed By: #### 3 149739039 ####[facility] [address] [place] [address] Physician Orderon 04-30-2023 Physician Order [id number]#1.00CD:1 27 Normal [facility] Physician Order [id number]#1.00CD:1 27 Normal [facility] BhCG Quanton 04-26-2023 [place] [address] m[IU]/mL High 1-3 F [facility] Comment on above: Result Comment: GEST ATIONAL AGE HCG RANGE (mIU/mL) NON- <1-3 0.2-1 WEEKS 5-50 1-2 WEEKS 50-500 2-3 WEEKS 100-5,000 3-4 WEEKS 500-10,000 4-5 WEEKS 1,000-50,000 5-6 WEEKS 10,000-100,000 6-8 WEEKS 15,000-200,000 8-12 WEEKS 10,000-100,000 Performed By: #### 2 552930 ####[facility] [address] [place] [address] CHEMISTRYOrdered By: SYSTEM SYSTEM on 04-26-2023 [place] [address] m[IU]/mL High 1 - 3 mIU/mL [facility] Remisol Consent for Treatmenton 04-14 Consent for Treatment [id number]#1.00CD:12 7 Normal [facility] Discharge Instructionson Discharge Instructions [id number]#1.00CD:1 27 Normal [facility] ED Clinical Summaryon 2022 ED Clinical Summary Normal [facility] ED Note-Physicianon 04-26-20 ED Note-Physician Normal [facility] Comment on above: Result Comment: Elec tronically Signed By: Jos Ugalde PA-C\.br\Date and Time Signed: 04/26/23 10:59 EDT\.br\Electronically Co-Signed By: Laura Noel M.D.\.br\Date and Time Co-Signed: 04/26/23 11:01 EDT ED Patient Education Noteon 04-26-2023 ED Patient Education Note Normal [facility] ED Patient Summaryon 023 ED Patient Summary Normal [facility] UA With Cult Reflexon 2022 Bilirubin Ql (U) Negative Normal Negative [facility] Comment on above: Performed By: #### 1 [id number] ####[facility] [address] [place] [address] Clarity (U) CLEAR Normal Clear [facility] Comment on above: Performed By: #### 1 5446306 ####[facility] [address] [place] [address] Color (U) YELLOW Normal Yellow [facility] Comment on above: Performed By: #### 1 2700769 ####[facility] [address] [place] [address] Crystals LM Ql (Urine sed) Present Normal [facility] Comment on above: Performed By: #### 1 1535569 ####[facility] [address] [place] [address] Epithelial cells.squamous LM.HPF (Urine sed) [#/Area] 0-2 Normal 0-2 [facility] Comment on above: Performed By: #### 1 6793485 ####[facility] [address] [place] [address] Glucose Test strip (U) [Mass/Vol] Negative Normal Negative [facility] Comment on above: Performed By: #### 1 2354855 ####[facility] [address] [place] [address] Hemoglobin Ql (U) Negative Normal Negative [facility] Comment on above: Performed By: #### 1 3657665 ####[facility] [address] [place] [address] Ketones (U) [Mass/Vol] Negative Normal Negative [facility] Comment on above: Performed By: #### 1 5276799 ####[facility] [address] [place] [address] [place].plasma/[place] .RBC (Bld) [Mass ratio] 0-3 Normal 0-3 [facility] Comment on above: Performed By: #### 1 1888505 ####[facility] [address] [place] [address] Mucus Ql (Urine sed) 2+ Normal [facility] Comment on above: Performed By: #### 1 5296865 ####[facility] [address] [place] [address] Nitrite Ql (U) Negative Normal Negative [facility] Comment on above: Performed By: #### 1 9440005 ####[facility] [address] [place] [address] pH (U) 8.5 [pH] Invalid Interpretation Code 5.0-9.0 [facility] Comment on above: Performed By: #### 1 8032066 ####[address] [address] Protein (U) [Mass/Vol] Negative Normal Negative Fi [facility] Comment on above: Performed By: #### 1 3555734 ####[address] [address] Specific gravity (U) [Rel density] 1.015 Invalid Interpretation Code 1.005-1.030 [facility] Comment on above: Performed By: #### 1 1019642 ####[address] [address] Type of Urine collection method Clean Catch Normal [facility] Comment on above: Performed By: #### 1 9828193 ####[address] [address] Urobilinogen Qn (U) 1.0 {Rola'U}/dL Normal 0.0-1.0 [facility] Comment on above: Performed By: #### 1 6520878 ####[address] [address] WBC Auto Ql (U) Negative Normal Negative [facility] Comment on above: Performed By: #### 1 2497998 ####[address] [address] WBC LM.HPF (Urine sed) [#/Area] 0-5 Normal 0-5 [facility] Comment on above: Performed By: #### 1 9590111 ####[address] [address] URINALYSISOrdered By: An Lassiter on 04-26-2023 Bilirubin [...] AM) Normal Negative [facility] UA Auto SS [place].plasma/[place] .RBC (Bld) [Mass ratio] 0-3 /HPF [...] [facility] UA Auto SS Urobilinogen Qn (U) 1.0140815 {Rola'U}/dL Normal 0.0 - 1.0 EU/dL [facility] UA Auto SS WBC Auto Ql (U) Negative (04/26/23 9:15 AM) Normal Negative [facility] UA Auto SS WBC LM.HPF (Urine sed) [#/Area] 0-5 /HPF Normal 0-5/HPF [facility] UA Auto SS US 1st Trimesteron 04-26-2023 US 1st Trimester Normal [facility] US Transvaginalon 04-26-2023 US Transvaginal Normal [facility] Coding Summary.on 02-02-2023 Coding Summary. Normal [facility] Auto Diffon 01-31-2023 Basophils/100 WBC (Bld) 0.3 % Normal 0.0-2.0 [facility] Comment on above: Order Comment: Order Added by Discern Expert. Performed By: #### 2 323997, 0608855, 90566247, 5338636 ####[address] [address] Basophils/Leukocytes Auto (Bld) [Pure # fraction] 0.0 E9/L Normal 0.0-0.2 [facility] Comment on above: Order Comment: Order Added by Discern Expert. Performed By: #### 2 932167, 3640084, 05019181, 4385779 ####[address] [address] Eosinophils/100 WBC (Bld) 2.8 % Normal 0.0-8.0 [facility] Comment on above: Order Comment: Order Added by Discern Expert. Performed By: #### 2 605643, 0045544, 08164024, 3181143 ####[address] [address] Eosinophils/Leukocytes Auto (Bld) [Pure # fraction] 0.1 E9/L Normal 0.0-0.5 [facility] Comment on above: Order Comment: Order Added by Discern Expert. Performed By: #### 2 396367, 1128137, 99863228, 2190971 ####[address] [address] Lymphocytes/100 WBC (Bld) 30.0 % Normal 14.0-50.0 [facility] Comment on above: Order Comment: Order Added by Discern Expert. Performed By: #### 2 282623, 8627974, 28775731, 6200604 ####[address] [address] Lymphocytes/Leukocytes Auto (Bld) [Pure # fraction] 1.5 E9/L Normal 1.0-4.0 [facility] Comment on above: Order Comment: Order Added by Discern Expert. Performed By: #### 2 085895, 1832080, 29514457, 5470884 ####[address] [address] Monocytes/100 WBC (Bld) 7.0 % Normal 4.0-14.0 [facility] Comment on above: Order Comment: Order Added by Discern Expert. Performed By: #### 2 268982, 6549261, 72235057, 2652881 ####[address] [address] Monocytes/Leukocytes Auto (Bld) [Pure # fraction] 0.4 E9/L Normal 0.2-1.0 [facility] Comment on above: Order Comment: Order Added by Gisselle Expert. Performed By: #### 2 932870, 7167557, 65133773, 5702579 ####[address] [address] Neutrophils/100 WBC (Bld) 59.9 % Normal 36.0-75.0 [facility] Comment on above: Order Comment: Order Added by Gisselle Expert. Performed By: #### 2 800173, 1869170, 66912215, 1183120 ####[address] [address] Neutrophils/Leukocytes Auto (Bld) [Pure # fraction] 3.1 E9/L Normal 2.0-7.5 [facility] Comment on above: Order Comment: Order Added by Gisselle Expert. Performed By: #### 2 605919, 8546450, 68298722, 9896473 ####[address] [address] B hCG Qualon 01-31-2023 Beta hCG Ql Negative Normal [facility] Comment on above: Performed By: #### 2 3624090, 31522394 ####[address] [place] [address] BMPon 01-31-2023 Creatinine [Mass/Vol] 0.8 mg/dL Normal 0.5-1.3 [facility] Comment on above: Performed By: #### 2 228998, 7754217, 06750507, 5055531 ####[facility] [address] [place] [address] Urea nitrogen [Mass/Vol] 9 mg/dL Normal 5-21 [facility] Comment on above: Performed By: #### 2 127737, 3309741, 47779957, 1905373 ####[facility] [address] [place] [address] Urea nitrogen/Creatinine [Mass ratio] 11 No Units Normal 10-20 [facility] Comment on above: Performed By: #### 2 862957, 3308213, 28440119, 5308965 ####[facility] [address] [address] Anion gap [Moles/Vol] 12 mmol/L Normal 6-16 [facility] Comment on above: Performed By: #### 2 902922, 5099148, 34288990, 9966950 ####[facility] [address] [place] [address] Calcium [Mass/Vol] 9.1 mg/dL Normal 8.9-11.1 [facility] Comment on above: Performed By: #### 2 397851, 3065896, 17743180, 0932502 ####[facility] [address] [place] [address] Chloride [Moles/Vol] 104 mmol/L Normal 101-111 [facility] Comment on above: Performed By: #### 2 183316, 9444919, 32478764, 7838642 ####[facility] [address] [place] [address] CO2 [Moles/Vol] 23 mmol/L Normal 21-31 [facility] Comment on above: Performed By: #### 2 010719, 7695161, 29477667, 1754609 ####[facility] [address] [place] [address] Glucose [Mass/Vol] 84 mg/dL Normal 55-199 [facility] Comment on above: Result Comment: If t his glucose result represents a fasting glucose, interpretation should refer to the following reference range: 55-99 mg/dL Performed By: #### 2 879576, 4430287, 63460019, 2127813 ####[facility] [address] [place] [address] Potassium [Moles/Vol] 3.5 mmol/L Normal 3.5-5.3 [facility] Comment on above: Performed By: #### 2 231784, 4687930, 45565225, 6314194 ####[facility] [address] [place] [address] Sodium [Moles/Vol] 135 mmol/L Normal 135-145 [facility] Comment on above: Performed By: #### 2 742699, 0698333, 33516204, 8977726 ####[facility] [address] [place] [address] CBC w/ Auto Diffon 3 Erythrocyte distribution width (RBC) [Ratio] 12.9 % Normal 10.9-14.2 [facility] Comment on above: Performed By: #### 2 243019, 5375618, 81336159, 0444450 ####[facility] [address] [place] [address] Hematocrit (Bld) [Volume fraction] 46.4 % High 34.0-46.0 [facility] Comment on above: Performed By: #### 2 422598, 4367416, 86762007, 6323687 ####[facility] [address] [place] [address] Hemoglobin (Bld) [Mass/Vol] 15.0 g/dL Normal 12.0-16.0 [facility] Comment on above: Performed By: #### 2 466952, 4083173, 47836389, 5518188 ####[facility] [address] [place] [address] MCH (RBC) [Entitic mass] 28.6 pg Normal 27.0-34.0 [facility] Comment on above: Performed By: #### 2 200254, 0196353, 96835751, 8346108 ####[address] [address] MCHC (RBC) [Mass/Vol] 32.3 g/dL Normal 31.4-36.0 [facility] Comment on above: Performed By: #### 2 761576, 9918482, 31754788, 3551298 ####[address] [address] MCV (RBC) [Entitic vol] 88.5 fL Normal 80.0-100.0 [facility] Comment on above: Performed By: #### 2 426418, 5577742, 37728162, 3729817 ####[address] [address] Platelet mean volume (Bld) [Entitic vol] 7.9 fL Normal 6.4-10.8 [facility] Comment on above: Performed By: #### 2 903046, 5190857, 02294668, 7810634 ####[address] [address] Platelets (Bld) [#/Vol] 300.0 E9/L Normal 150.0-500.0 [facility] Comment on above: Performed By: #### 2 884737, 1367542, 61719727, 4792634 ####[address] [address] RBC (Bld) [#/Vol] 5.2 E12/L Normal 4.3-5.9 [facility] Comment on above: Performed By: #### 2 276579, 7443409, 25661206, 6255158 ####[address] [address] WBC corrected for nucl RBC Auto (Bld) [#/Vol] 5.1 E9/L Normal 4.0-11.0 [facility] Comment on above: Performed By: #### 2 522818, 3879491, 00200282, 5616496 ####[facility] [address] [place] [address] CHEMISTRYOrdered By: SYSTEM SYSTEM on 01-31-2023 Anion [...] mL/min/1.73 m2 Normal >=59mL/min/ 1.73 m2 [facility] Chem S Glucose [...] Coag CTA Headon 01-31-2023 CTA Head Normal [facility] Consent for Treatmenton 01-13 Consent for Treatment [id number]#1.00CD:12 7 Normal [facility] Discharge Instructionson Discharge Instructions [id number]#1.00CD:1 27 Normal [facility] ED Clinical Summaryon 2022 ED Clinical Summary Normal [facility] ED Note-Physicianon 02-01-20 ED Note-Physician Normal [facility] Comment on above: Result Comment: Elec tronically Signed By: Kristian Guillermo DO.br\Date and Time Signed: 01/31/23 14:00 EDT ED Patient Education Noteon 01-31-2023 ED Patient Education Note Normal [facility] ED Patient Summaryon 023 ED Patient Summary Normal [facility] HEMATOLOGYOrdered By: SYSTEM SYSTEM on 01-31-2023 [...] 59.9 % Normal 36.0 - 75.0 % FT HemeAutoSS Neutrophils/Leukocytes Auto (Bld) [Pure [...] Coag (PPP) [Time] 31.3 second(s) Normal 25.1-36.5 [facility] Comment on above: Result Comment: Para [...] same coagulation reagent and instrumentation as [facility]. Currently there are no coagulation studies available worldwide for children to 14 days, and no normal ranges. Heparin therapeutic range (represented by Anti-Factor Xa activity of 0.2 - 0.4 U/mL) corresponds to PTT of 56.6 - 109.0 sec. Performed By: #### 2 0541264, 06027441 ####[facility] [address] [place] [address] INR Coag (PPP) [Relative time] 1.1 {INR} Invalid Interpretation Code [facility] Comment on above: Result Comment: INR results are specifically intended to assess patients stabilized on long-term Anticoagulation therapy suggested INR?s ?Less Intensive Anticoagulation? 2.0 ? 3.0Conventional Range 3.0 ? 4.5 Performed By: #### 2 1099999, 23226979 ####[facility] [address] [place] [address] PT Coag (PPP) [Time] 12.3 second(s) Normal 9.4-12.5 [facility] Comment on above: Result Comment: 15 [...] same coagulation reagent and instrumentation as [facility]. Currently there are no coagulation studies available worldwide for children to 14 days, and no normal ranges. Performed By: #### 2 6939503, 09279389 ####[facility] [address] [place] [address] Pre-Arrival Noteon 3 Pre-Arrival Note Normal [facility] SEROLOGYOrdered By: Nova Mccarty on 01-31-2023 Beta hCG Ql Negative (01/31/23 10:14 AM) Normal [facility] Man Sero eGFRon 01-31-2023 GFR/1.73 sq M.predicted among blacks MDRD (S/P/Bld) [Vol rate/Area] mL/min/{1.73_m2} Normal >=59 [facility] Comment on above: Order Comment: Order added by Discern Expert. Result Comment: eGFR is race adjusted. AA=. Performed By: #### 2 113903, 4751521, 29134307, 0142919 ####[facility] [address] [place] [address] GFR/1.73 sq M.predicted among non-blacks MDRD (S/P/Bld) [Vol rate/Area] mL/min/{1.73_m2} Normal >=59 [facility] Comment on above: Order Comment: Order added by Discern Expert. Result Comment: Hot [employer] Worker lucy kidney disease could be indicated at eGFR's of less than 60 mL/min/1.73m2. Kidney failure is indicated at less than 15 mL/min/1.73m2. Performed By: #### 2 646491, 7981620, 43768357, 8998319 ####[facility] [address] [place] [address] Nursing Assessmenton 023 Nursing Assessment [id number]#1.00CD:1 27 Normal [facility] Coding Summary.on 10-02-2022 Coding Summary. Normal [facility] Coding Summary. Normal [facility] Delivery Summaryon 2 Delivery Summary Normal [facility] Comment on above: Result Comment: Elec tronically Signed By: Fabiana MARION, Luis Carlos Pope.br\Date and Time Signed: 09/29/22 09:25 EST General Message Officeon General Message Office Normal [facility] Insurance Correspondence Off iceon 09-28-2022 Insurance Correspondence Office [id number]#1.00CD:1 27 Normal [facility] Discharge Instructionson Discharge Instructions [id number]#1.00CD:12 7 Normal [facility] Inpatient Clinical Summaryon 09-27-2022 Inpatient Clinical Summary Normal [facility] Inpatient Patient Summaryon 09-27-2022 Inpatient Patient Summary Normal [facility] CBC w/Indiceson 09-26-2022 Erythrocyte distribution width (RBC) [Ratio] 13.1 % Normal 10.9-14.2 [facility] Comment on above: Performed By: #### 2 [id number] ####[facility] [address] [place] [address] Hematocrit (Bld) [Volume fraction] 32.1 % Low 34.0-46.0 [facility] Comment on above: Performed By: #### 2 922032 ####[facility] [address] [place] [address] Hemoglobin (Bld) [Mass/Vol] 11.1 g/dL Low 12.0-16.0 [facility] Comment on above: Performed By: #### 2 314249 ####[facility] [address] [place] [address] MCH (RBC) [Entitic mass] 30.9 pg Normal 27.0-34.0 [facility] Comment on above: Performed By: #### 2 865242 ####[facility] [address] [place] [address] MCHC (RBC) [Mass/Vol] 34.5 g/dL Normal 31.4-36.0 [facility] Comment on above: Performed By: #### 2 779690 ####[facility] [address] [place] [address] MCV (RBC) [Entitic vol] 89.7 fL Normal 80.0-100.0 [facility] Comment on above: Performed By: #### 2 598430 ####[facility] [address] [place] [address] Platelet mean volume (Bld) [Entitic vol] 10.1 fL Normal 6.4-10.8 [facility] Comment on above: Performed By: #### 2 383628 ####[address] [address] Platelets (Bld) [#/Vol] 204.0 E9/L Normal 150.0-500.0 [facility] Comment on above: Performed By: #### 2 522336 ####[address] [address] RBC (Bld) [#/Vol] 3.6 E12/L Low 4.3-5.9 [facility] Comment on above: Performed By: #### 2 677601 ####[address] [address] WBC corrected for nucl RBC Auto (Bld) [#/Vol] 23.2 E9/L High 4.0-11.0 [facility] Comment on above: Performed By: #### 2 841328 ####[address] [address] Nursing Assessmenton 022 Nursing Assessment [id number]#1.00CD:12 7 Normal [facility] Progress Note-Physicianon Progress Note-Physician Normal [facility] Comment on above: Result Comment: Elec tronically Signed By: Fabiana MARION, Luis Carlos Pope.medina\Date and Time Signed: 09/26/22 08:19 EST Coding Summary.on 09-25-2022 Coding Summary. Normal [facility] Coding Summary. Normal [facility] Consenton 09-25-2022 Consent [id number]#1.00CD:1 27 Normal [facility] Consent for Anesthesiaon Consent for Anesthesia [id number]#1.00CD:12 7 Normal [facility] Discharge Instructionson Discharge Instructions [id number]#1.00CD:1 27 Normal [facility] Help Me Grow Referralon 09-14 Help Me Grow Referral [id number]#1.00CD:12 7 Normal [facility] Recordson Records [id number]#1.00CD:12 7 [facility] Progress Note-Physicianon Progress Note-Physician [facility] Comment on above: Result Comment: Elec tronically Signed By: Jimmy Corcoran Jr., DO\.br\Date and Time Signed: 09/25/22 08:31 EST Progress Note-Physician Normal [facility] Comment on above: Result Comment: Elec tronically Signed By: Jimmy Corcoran Jr., DO\.br\Date and Time Signed: 09/25/22 08:31 EST UA With Cult Reflexon 2021 Bilirubin Ql (U) Negative Normal Negative [facility] Comment on above: Order Comment: Urina ry Catheter Insertion triggered Urinalysis With Culture Reflex order by gisselle. Performed By: #### 1 [id number] ####[facility] [address] [place] [address] Clarity (U) CLEAR Normal Clear [facility] Comment on above: Order Comment: Urina ry Catheter Insertion triggered Urinalysis With Culture Reflex order by gisselle. Performed By: #### 1 [id number] ####[facility] [address] [place] [address] Color (U) YELLOW Normal Yellow [facility] Comment on above: Order Comment: Urina ry Catheter Insertion triggered Urinalysis With Culture Reflex order by discern. Performed By: #### 1 [id number] ####[facility] [address]bbi[address] [place] [address] Epithelial cells.squamous LM.HPF (Urine sed) [#/Area] 0-2 Normal 0-2 [facility] Comment on above: Order Comment: Urina ry Catheter Insertion triggered Urinalysis With Culture Reflex order by discern. Performed By: #### 1 1131575 ####[address] [address] Glucose Test strip (U) [Mass/Vol] Negative Normal Negative [facility] Comment on above: Order Comment: Urina ry Catheter Insertion triggered Urinalysis With Culture Reflex order by discern. Performed By: #### 1 8540100 ####[address] [address] Hemoglobin Ql (U) Negative Normal Negative [facility] Comment on above: Order Comment: Urina ry Catheter Insertion triggered Urinalysis With Culture Reflex order by discern. Performed By: #### 1 2381297 ####[address] [address] Ketones (U) [Mass/Vol] Negative Normal Negative [facility] Comment on above: Order Comment: Urina ry Catheter Insertion triggered Urinalysis With Culture Reflex order by discern. Performed By: #### 1 6159472 ####[address] [address] [place].plasma/[place] .RBC (Bld) [Mass ratio] 0-3 Normal 0-3 [facility] Comment on above: Order Comment: Urina ry Catheter Insertion triggered Urinalysis With Culture Reflex order by discern. Performed By: #### 1 5923454 ####[facility] [address] [place] [address] Nitrite Ql (U) Negative Normal Negative [facility] Comment on above: Order Comment: Urina ry Catheter Insertion triggered Urinalysis With Culture Reflex order by discern. Performed By: #### 1 5890233 ####[address] [address] pH (U) 7.0 [pH] Invalid Interpretation Code 5.0-9.0 [facility] Comment on above: Order Comment: Urina ry Catheter Insertion triggered Urinalysis With Culture Reflex order by discern. Performed By: #### 1 4739582 ####[place] [address] Protein (U) [Mass/Vol] Negative Normal Negative [facility] Comment on above: Order Comment: Urina ry Catheter Insertion triggered Urinalysis With Culture Reflex order by discern. Performed By: #### 1 6922251 ####[place] [address] Specific gravity (U) [Rel density] <=1.005 Invalid Interpretation Code 1.005-1.030 [facility] Comment on above: Order Comment: Urina ry Catheter Insertion triggered Urinalysis With Culture Reflex order by discern. Performed By: #### 1 1319181 ####[place] [address] Type of Urine collection method Vyas Normal [facility] Comment on above: Order Comment: Urina ry Catheter Insertion triggered Urinalysis With Culture Reflex order by discern. Performed By: #### 1 9192113 ####[place] [address] Urobilinogen Qn (U) 0.2 {Rola'U}/dL Normal 0.0-1.0 [facility] Comment on above: Order Comment: Urina ry Catheter Insertion triggered Urinalysis With Culture Reflex order by discern. Performed By: #### 1 3087091 ####[place] 9596357 WBC Auto Ql (U) Negative Normal Negative [facility] Comment on above: Order Comment: Urina ry Catheter Insertion triggered Urinalysis With Culture Reflex order by discern. Performed By: #### 1 7232479 ####[place] 9596357 WBC LM.HPF (Urine sed) [#/Area] 0-5 Normal 0-5 [facility] Comment on above: Order Comment: Urina ry Catheter Insertion triggered Urinalysis With Culture Reflex order by discern. Performed By: #### 1 4352792 ####[facility] [address] [place] [address] Bilirubin Ql (U) Negative Normal Negative [facility] Comment on above: Performed By: #### 1 6872221 ####[address] [address] Clarity (U) CLEAR Normal Clear [facility] Comment on above: Performed By: #### 1 5097166 ####[address] [address] Color (U) YELLOW Normal Yellow [facility] Comment on above: Performed By: #### 1 2037187 ####[address] [address] Epithelial cells.squamous LM.HPF (Urine sed) [#/Area] 0-2 Normal 0-2 [facility] Comment on above: Performed By: #### 1 9053434 ####[address] [address] Glucose Test strip (U) [Mass/Vol] Negative Normal Negative [facility] Comment on above: Performed By: #### 1 5174524 ####[address] [address] Hemoglobin Ql (U) Negative Normal Negative [facility] Comment on above: Performed By: #### 1 7965416 ####[facility] [address] [place] [address] Ketones (U) [Mass/Vol] Negative Normal Negative [facility] Comment on above: Performed By: #### 1 4339282 ####[address] [address] [place].plasma/[place] .RBC (Bld) [Mass ratio] 0-3 Normal 0-3 [facility] Comment on above: Performed By: #### 1 4457645 ####[address] [address] Nitrite Ql (U) Negative Normal Negative [facility] Comment on above: Performed By: #### 1 6118115 ####[address] [address] pH (U) 6.0 [pH] Invalid Interpretation Code 5.0-9.0 [facility] Comment on above: Performed By: #### 1 7507157 ####[address] [address] Protein (U) [Mass/Vol] Negative Normal Negative [facility] Comment on above: Performed By: #### 1 0796201 ####[address] [address] Specific gravity (U) [Rel density] <=1.005 Invalid Interpretation Code 1.005-1.030 [facility] Comment on above: Performed By: #### 1 4523692 ####[address] [address] Type of Urine collection method Clean Catch Normal [facility] Comment on above: Performed By: #### 1 9277348 ####[address] [address] Urobilinogen Qn (U) 0.2 {Rola'U}/dL Normal 0.0-1.0 [facility] Comment on above: Performed By: #### 1 9591252 ####[address] [address] WBC Auto Ql (U) Negative Normal Negative [facility] Comment on above: Performed By: #### 1 4488398 ####[address] [address] WBC LM.HPF (Urine sed) [#/Area] 0-5 Normal 0-5 [facility] Comment on above: Performed By: #### 1 3553404 ####[address] [address] Vaccinationson 09-25-2022 Vaccinations [id number]#1.00CD:1 27 Normal [facility] Vaccinations [id number]#1.00CD:1 27 Normal [facility] ABO/Rhon 09-24-2022 ABO/Rh Positive Invalid Interpretation Code [facility] Comment on above: Performed By: #### 1 2557430, [id number], [id number], 4960259 ####[facility] [address] [place] [address] ABO/Rh History Checkon 09-24 ABO/Rh History Check Verified Hx Blood Type Normal [facility] Comment on above: Performed By: #### 1 0847932, [id number], [id number], 5770522 ####[facility] [address] [place] [address] ABSCon 09-24-2022 ABSC Gel Interp Negative Normal [facility] Comment on above: Performed By: #### 1 9848057, [id number], 98967576, 0175451 ####[facility] [address] [place] [address] Blood Bank ID#on 09-24-2022 BBID# [id number] Invalid Interpretation Code [facility] Comment on above: Performed By: #### 1 8559018, [id number], 94668357, 8889643 ####[facility] [address] [place] [address] CBC w/Indiceson 09-24-2022 Erythrocyte distribution width (RBC) [Ratio] 13.0 % Normal 10.9-14.2 [facility] Comment on above: Performed By: #### 2 530123 ####[place] [address] [place] [address] Hematocrit (Bld) [Volume fraction] 38.0 % Normal 34.0-46.0 [facility] Comment on above: Performed By: #### 2 748578 ####[facility] [address] [place] [address] Hemoglobin (Bld) [Mass/Vol] 12.8 g/dL Normal 12.0-16.0 [facility] Comment on above: Performed By: #### 2 711407 ####[address] [address] MCH (RBC) [Entitic mass] 31.3 pg Normal 27.0-34.0 [facility] Comment on above: Performed By: #### 2 342947 ####[address] [address] MCHC (RBC) [Mass/Vol] 33.7 g/dL Normal 31.4-36.0 [facility] Comment on above: Performed By: #### 2 269333 ####[place] 9596357 MCV (RBC) [Entitic vol] 92.9 fL Normal 80.0-100.0 [facility] Comment on above: Performed By: #### 2 717298 ####[place] [address] Platelet mean volume (Bld) [Entitic vol] 9.8 fL Normal 6.4-10.8 [facility] Comment on above: Performed By: #### 2 755867 ####[address] [address] Platelets (Bld) [#/Vol] 238.0 E9/L Normal 150.0-500.0 [facility] Comment on above: Performed By: #### 2 509122 ####[address] [address] RBC (Bld) [#/Vol] 4.1 E12/L Low 4.3-5.9 [facility] Comment on above: Performed By: #### 2 181319 ####[address] [address] WBC corrected for nucl RBC Auto (Bld) [#/Vol] 12.8 E9/L High 4.0-11.0 [facility] Comment on above: Performed By: #### 2 477591 ####[address] [address] Consent for Treatmenton 09-14 Consent for Treatment [id number]#1.00CD:12 7 [facility] Consent for Treatment [id number]#1.00CD:1 27 [facility] Consent for Treatmenton Consent for Treatment [id number]#1.00CD:12 7 [facility] Discharge Instructionson Discharge Instructions [id number]#1.00CD:12 7 [facility] Inpatient Clinical Summaryon 09-22-2022 Inpatient Clinical Summary [facility] Inpatient Patient Summaryon 09-22-2022 Inpatient Patient Summary [facility] Insurance Correspondence Off ice09-22-2022 Insurance Correspondence Office [id number]#1.00CD: 127 [facility] Nursing Assessmenton 022 Nursing Assessment [id number]#1.00CD:1 27 [facility] Nursing Assessment [id number]#1.00CD:12 7 [facility] Discharge Instructionson Discharge Instructions [id number]#1.00CD:127 [facility] Inpatient Clinical Summaryon 09-20-2022 Inpatient Clinical Summary [facility] Inpatient Patient Summaryon 09-20-2022 Inpatient Patient Summary [facility] Insurance Correspondence Off ice09-20-2022 Insurance Correspondence Office [id number]#1.00CD:127 [facility] Consent for Treatmenton Consent for Treatment [id number]#1.00CD:12 7 Normal [facility] Discharge Instructionson Discharge Instructions [id number]#1.00CD:1 27 Normal [facility] Inpatient Clinical Summaryon 09-19-2022 Inpatient Clinical Summary Normal [facility] Inpatient Patient Summaryon 09-19-2022 Inpatient Patient Summary Normal [facility] Insurance Correspondenceon 1 11-20-2021 Insurance Correspondence [id number]#1.00CD:1 27 Normal [facility] UA With Cult Reflexon 2021 Bilirubin Ql (U) Negative Normal Negative [facility] Comment on above: Performed By: #### 1 [id number] ####[facility] [address] [place] [address] Clarity (U) CLEAR Normal Clear [facility] Comment on above: Performed By: #### 1 3394017 ####[facility] [address] [place] [address] Color (U) YELLOW Normal Yellow [facility] Comment on above: Performed By: #### 1 1756226 ####[facility] [address] [place] [address] Epithelial cells.squamous LM.HPF (Urine sed) [#/Area] 0-2 Normal 0-2 [facility] Comment on above: Performed By: #### 1 1407032 ####[facility] [address] [place] [address] Glucose Test strip (U) [Mass/Vol] Negative Normal Negative [facility] Comment on above: Performed By: #### 1 5427626 ####[facility] [address] [place] [address] Hemoglobin Ql (U) Negative Normal Negative [facility] Comment on above: Performed By: #### 1 7636735 ####[facility] [address] [place] [address] Ketones (U) [Mass/Vol] Negative Normal Negative [facility] Comment on above: Performed By: #### 1 6598545 ####[address] [address] [place].plasma/[place] .RBC (Bld) [Mass ratio] 0-3 Normal 0-3 [facility] Comment on above: Performed By: #### 1 7226559 ####[address] [address] Nitrite Ql (U) Negative Normal Negative [facility] Comment on above: Performed By: #### 1 8743770 ####[address] [address] pH (U) 7.0 [pH] Invalid Interpretation Code 5.0-9.0 [facility] Comment on above: Performed By: #### 1 3558543 ####[address] [address] Protein (U) [Mass/Vol] Negative Normal Negative [facility] Comment on above: Performed By: #### 1 3323843 ####[address] [address] Specific gravity (U) [Rel density] <=1.005 Invalid Interpretation Code 1.005-1.030 [facility] Comment on above: Performed By: #### 1 3211302 ####[address] [address] Type of Urine collection method Clean Catch Normal [facility] Comment on above: Performed By: #### 1 4585576 ####[address] [address] Urobilinogen Qn (U) 0.2 {Rola'U}/dL Normal 0.0-1.0 [facility] Comment on above: Performed By: #### 1 4734373 ####[address] [address] WBC Auto Ql (U) Negative Normal Negative [facility] Comment on above: Performed By: #### 1 1722851 ####[place] [facility] [address] [place] [address] WBC LM.HPF (Urine sed) [#/Area] 0-5 Normal 0-5 [facility] Comment on above: Performed By: #### 1 5870066 ####[facility] [address] [place] [address] URINALYSISOrdered By: Jeanette Castle on 09-19-2022 Bilirubin [...] AM) Normal Negative [facility] UA Auto SS [place].plasma/[place] .RBC (Bld) [Mass ratio] 0-3 /HPF [...] [facility] UA Auto SS Urobilinogen Qn (U) 0.0995899 {Rola'U}/dL Normal 0.0 - 1.0 EU/dL [facility] UA Auto SS WBC Auto Ql (U) Negative (09/19/22 1:44 AM) Normal Negative [facility] UA Auto SS WBC LM.HPF (Urine sed) [#/Area] 0-5 /HPF Normal 0-5/HPF [facility] UA Auto SS Coding Summary.on 09-18-2022 Coding Summary. Normal [facility] Nursing Assessmenton Nursing Assessment [id number]#1.00CD:12 7 Normal [facility] Coding Summary.on 09-15-2022 Coding Summary. Normal [facility] Coding Summary.on 09-14-2022 Coding Summary. Normal [facility] Consent for Treatmenton Consent for Treatment [id number]#1.00CD:12 7 [facility] Consent for Treatment [id number]#1.00CD:12 7 Normal [facility] Discharge Instructionson Discharge Instructions [id number]#1.00CD:12 7 Normal [facility] Inpatient Clinical Summaryon 09-14-2022 Inpatient Clinical Summary Normal [facility] Inpatient Patient Summaryon 09-14-2022 Inpatient Patient Summary [facility] Insurance Correspondence Off iceon 09-14-2022 Insurance Correspondence Office [id number]#1.00CD:12 7 Normal [facility] Nursing Assessmenton Nursing Assessment [id number]#1.00CD:1 27 Normal [facility] UA With Cult Reflexon 2021 Bacteria LM Ql (Urine sed) TRACE Normal Trace [facility] Comment on above: Performed By: #### 1 [id number] ####[facility] [address] [place] [address] Bilirubin Ql (U) Negative Normal Negative [facility] Comment on above: Performed By: #### 1 0310230 ####[facility] [address] [place] [address] Clarity (U) CLEAR Normal Clear [facility] Comment on above: Performed By: #### 1 6679367 ####[address] [address] Color (U) YELLOW Normal Yellow [facility] Comment on above: Performed By: #### 1 3644968 ####[address] [address] Crystals LM Ql (Urine sed) Present Normal [facility] Comment on above: Performed By: #### 1 5877951 ####[address] [address] Epithelial cells.squamous LM.HPF (Urine sed) [#/Area] 0-2 Normal 0-2 [facility] Comment on above: Performed By: #### 1 4464761 ####[address] [address] Glucose Test strip (U) [Mass/Vol] Negative Normal Negative [facility] Comment on above: Performed By: #### 1 0187258 ####[address] [address] Hemoglobin Ql (U) Negative Normal Negative [facility] Comment on above: Performed By: #### 1 2138640 ####[facility] [address] [place] [address] Ketones (U) [Mass/Vol] Negative Normal Negative [facility] Comment on above: Performed By: #### 1 7018877 ####[facility] [address] [place] [address] [place].plasma/[place] .RBC (Bld) [Mass ratio] 0-3 Normal 0-3 [facility] Comment on above: Performed By: #### 1 8180424 ####[facility] [address] [place] [address] Mucus Ql (Urine sed) TRACE Normal [facility] Comment on above: Performed By: #### 1 8141490 ####[facility] [address] [place] [address] Nitrite Ql (U) Negative Normal Negative [facility] Comment on above: Performed By: #### 1 1310461 ####[address] [address] pH (U) 6.0 [pH] Invalid Interpretation Code 5.0-9.0 [facility] Comment on above: Performed By: #### 1 [id number] ####[address] [address] Protein (U) [Mass/Vol] Negative Normal Negative [facility] Comment on above: Performed By: #### 1 1165273 ####[address] [address] Specific gravity (U) [Rel density] <=1.005 Invalid Interpretation Code 1.005-1.030 [facility] Comment on above: Performed By: #### 1 9797647 ####[address] [address] Type of Urine collection method Random Urine Normal [facility] Comment on above: Performed By: #### 1 1326016 ####[address] [address] Urobilinogen Qn (U) 0.2 {Rola'U}/dL Normal 0.0-1.0 [facility] Comment on above: Performed By: #### 1 6239878 ####[address] [address] WBC Auto Ql (U) TRACE Abnormal Negative [facility] Comment on above: Performed By: #### 1 6622446 ####[address] [address] WBC LM.HPF (Urine sed) [#/Area] 0-5 Normal 0-5 [facility] Comment on above: Performed By: #### 1 8778125 ####[address] [place] [address] URINALYSISOrdered By: An Lassiter on 09-14-2022 Bacteria [...] AM) Normal Negative [facility] UA Auto SS [place].plasma/[place] .RBC (Bld) [Mass ratio] 0-3 /HPF [...] [facility] UA Auto SS Urobilinogen Qn (U) 0.4122993 {Rola'U}/dL Normal 0.0 - 1.0 EU/dL [facility] UA Auto SS WBC Auto Ql (U) Trace *ABN* (09/14/22 9:25 AM) Invalid Interpretation Code Negative [facility] UA Auto SS WBC LM.HPF (Urine sed) [#/Area] 0-5 /HPF Normal 0-5/HPF [facility] UA Auto SS Coding Summary.on 09-12-2022 Coding Summary. Normal [facility] Consent for Treatmenton 08-16 Consent for Treatment [id number]#1.00CD:12 7 Normal [facility] Discharge Instructionson Discharge Instructions [id number]#1.00CD:12 7 [facility] Discharge Instructions [id number]#1.00CD:1 27 Normal [facility] Inpatient Clinical Summaryon 09-12-2022 Inpatient Clinical Summary Normal [facility] Inpatient Patient Summaryon 09-12-2022 Inpatient Patient Summary Normal [facility] Insurance Correspondenceon 11-12-2021 Insurance Correspondence [id number]#[id number]:12 7 Normal [facility] Insurance Correspondence Off iceon 09-12-2022 Insurance Correspondence Office [id number]#1.00CD:1 27 Normal [facility] Nursing Assessmenton 022 Nursing Assessment [id number]#1.00CD:1 27 Normal [facility] UA With Cult Reflexon 2021 Bilirubin Ql (U) Negative Normal Negative [facility] Comment on above: Performed By: #### 1 [id number] ####[facility] [address] [place] [address] Clarity (U) CLEAR Normal Clear [facility] Comment on above: Performed By: #### 1 [id number] ####[facility] [address] [place] [address] Color (U) YELLOW Normal Yellow [facility] Comment on above: Performed By: #### 1 [id number] ####[facility] [address] [place] [address] Crystals LM Ql (Urine sed) Present Normal [facility] Comment on above: Performed By: #### 1 [id number] ####[facility] [address] [place] [address] Epithelial cells.squamous LM.HPF (Urine sed) [#/Area] 3-4 Normal 0-2 [facility] Comment on above: Performed By: #### 1 6041580 ####[facility] [address] [place] [address] Glucose Test strip (U) [Mass/Vol] Negative Normal Negative [facility] Comment on above: Performed By: #### 1 [id number] ####[address] [address] Hemoglobin Ql (U) Negative Normal Negative [facility] Comment on above: Performed By: #### 1 2357570 ####[facility] [address] [place] [address] Ketones (U) [Mass/Vol] Negative Normal Negative Fi [facility] Comment on above: Performed By: #### 1 6961803 ####[facility] [address] [place] [address] [place].plasma/[place] .RBC (Bld) [Mass ratio] 0-3 Normal 0-3 [facility] Comment on above: Performed By: #### 1 6058450 ####[facility] [address] [place] [address] Nitrite Ql (U) Negative Normal Negative [facility] Comment on above: Performed By: #### 1 0790602 ####[address] [place] [address] pH (U) 6.0 [pH] Invalid Interpretation Code 5.0-9.0 [facility] Comment on above: Performed By: #### 1 [id number] ####[place] [address] Protein (U) [Mass/Vol] Negative Normal Negative Fi [facility] Comment on above: Performed By: #### 1 1471079 ####[place] [address] Specific gravity (U) [Rel density] 1.010 Invalid Interpretation Code 1.005-1.030 [facility] Comment on above: Performed By: #### 1 8687125 ####[place] [address] Type of Urine collection method Clean Catch Normal [facility] Comment on above: Performed By: #### 1 9704507 ####[place] [address] Urobilinogen Qn (U) 0.2 {Rola'U}/dL Normal 0.0-1.0 [facility] Comment on above: Performed By: #### 1 4713238 ####[place] [address] WBC Auto Ql (U) Negative Normal Negative [facility] Comment on above: Performed By: #### 1 3183883 ####[place] [address] WBC LM.HPF (Urine sed) [#/Area] 0-5 Normal 0-5 [facility] Comment on above: Performed By: #### 1 7532815 ####[place] [address] URINALYSISOrdered By: Jose Miguel nelson on 09-12-2022 [...] (Urine sed) [#/Area] 3-4 /HPF Normal 0-2/HPF [facility] UA Auto SS Glucose Test strip (U) [Mass/Vol] Negative (09/12/22 8:15 PM) Normal Negative [facility] UA Auto SS Hemoglobin Ql (U) Negative (09/12/22 8:15 PM) Normal Negative [facility] UA Auto SS Ketones (U) [Mass/Vol] Negative (09/12/22 8:15 PM) Normal Negative [facility] UA Auto SS [place].plasma/[place] .RBC (Bld) [Mass ratio] 0-3 /HPF Normal 0-3/HPF [facility] UA Auto SS Nitrite Ql (U) Negative (09/12/22 8:15 PM) Normal Negative [facility] UA Auto SS pH (U) 6.0 *NA* (09/12/22 8:15 PM) Invalid Interpretation Code 5.0 - 9.0 [facility] UA Auto SS Protein (U) [Mass/Vol] Negative (09/12/22 8:15 PM) Normal Negative [facility] UA Auto SS Specific gravity (U) [Rel density] 1.010 *NA* (09/12/22 8:15 PM) Invalid Interpretation Code 1.005 - 1.030 [facility] UA Auto SS UA Spec Desc Clean Catch (09/12/22 8:15 PM) Normal [facility] UA Auto SS Urobilinogen Qn (U) 0.3415668 {Rola'U}/dL Normal 0.0 - 1.0 EU/dL [facility] UA Auto SS WBC Auto Ql (U) Negative (09/12/22 8:15 PM) Normal Negative [facility] UA Auto SS WBC LM.HPF (Urine sed) [#/Area] 0-5 /HPF Normal 0-5/HPF [facility] UA Auto SS Coding Summary.on 09-11-2022 Coding Summary. Normal [facility] Consent for Treatmenton 08-16 Consent for Treatment [id number]#1.00CD:12 7 Normal [facility] Discharge Instructionson Discharge Instructions [id number]#1.00CD:1 27 Normal [facility] Inpatient Clinical Summaryon 09-08-2022 Inpatient Clinical Summary Normal [facility] Inpatient Patient Summaryon 09-08-2022 Inpatient Patient Summary Normal [facility] Coding Summary.on 09-06-2022 Coding Summary. Normal [facility] Discharge Instructionson Discharge Instructions [id number]#1.00CD:1 27 Normal [facility] ED Clinical Summaryon 2021 ED Clinical Summary Normal [facility] ED Note-Nursingon 09-06-2022 ED Note-Nursing pt given d/c instruc tions and educated on importance of follow up. pt educated on new medications. pt verbalized understanding of instructions and readiness for d/c. pt walked self ambulatory to waiting room in stable condition Normal [facility] ED Patient Education Noteon 09-06-2022 ED Patient Education Note Normal [facility] ED Patient Summaryon 022 ED Patient Summary Normal [facility] XR Chest Single Viewon 09-06 XR Chest Single View Normal [facility] Auto Diffon 09-05-2022 Basophils/100 WBC (Bld) 1.0 % Normal 0.0-2.0 [facility] Comment on above: Order Comment: Order Added by Discern Expert. Performed By: #### 2 834493, 34702482, 63647288, 5718571, 56493080, 44543481, 0453755 ####[facility] [address] [place] [address] Basophils/Leukocytes Auto (Bld) [Pure # fraction] 0.1 E9/L Normal 0.0-0.2 [facility] Comment on above: Order Comment: Order Added by Discern Expert. Performed By: #### 2 530598, 86351189, 27849925, 3839273, 57379657, 76392704, 6931844 ####[facility] [address] [place] [address] Eosinophils/100 WBC (Bld) 1.4 % Normal 0.0-8.0 [facility] Comment on above: Order Comment: Order Added by Discern Expert. Performed By: #### 2 104235, 13036020, 25772502, 5347225, 73901754, 61401753, 2974750 ####[facility] [address] [place] [address] Eosinophils/Leukocytes Auto (Bld) [Pure # fraction] 0.2 E9/L Normal 0.0-0.5 [facility] Comment on above: Order Comment: Order Added by Discern Expert. Performed By: #### 2 909302, 91693925, 34558527, 2190244, 58548073, 29748617, 4581340 ####[facility] [address] [place] [address] Lymphocytes/100 WBC (Bld) 18.8 % Normal 14.0-50.0 [facility] Comment on above: Order Comment: Order Added by Discern Expert. Performed By: #### 2 782222, 71848296, 38343744, 7766576, 84736927, 39508810, 7886297 ####[address] [place] [address] Lymphocytes/Leukocytes Auto (Bld) [Pure # fraction] 2.0 E9/L Normal 1.0-4.0 [facility] Comment on above: Order Comment: Order Added by Discern Expert. Performed By: #### 2 668684, 67623197, 48882325, 6983220, 53195642, 28538005, 0524546 ####[address] [place] [address] Monocytes/100 WBC (Bld) 6.8 % Normal 4.0-14.0 [facility] Comment on above: Order Comment: Order Added by Discern Expert. Performed By: #### 2 730487, 25579589, 62940483, 2249018, 79717726, 45883122, 5156476 ####[address] [place] [address] Monocytes/Leukocytes Auto (Bld) [Pure # fraction] 0.7 E9/L Normal 0.2-1.0 [facility] Comment on above: Order Comment: Order Added by Discern Expert. Performed By: #### 2 719651, 81984113, 58533662, 0745740, 41347746, 58351528, 7244324 ####[facility] [address] [place] [address] Neutrophils/100 WBC (Bld) 72.0 % Normal 36.0-75.0 [facility] Comment on above: Order Comment: Order Added by Discern Expert. Performed By: #### 2 871878, 28985552, 99599571, 8899698, 57785945, 15204501, 5381255 ####[facility] [address] [place] [address] Neutrophils/Leukocytes Auto (Bld) [Pure # fraction] 7.8 E9/L High 2.0-7.5 [facility] Comment on above: Order Comment: Order Added by Gisselle Expert. Performed By: #### 2 105907, 97290668, 55577913, 5539581, 32918997, 83023309, 7602649 ####[facility] [address] [place] [address] BMPon 09-05-2022 Creatinine [Mass/Vol] 0.7 mg/dL Normal 0.5-1.3 [facility] Comment on above: Performed By: #### 2 629581, 40698591, 50180252, 7604979, 96634330, 84670836, 3391487 ####[facility] [address] [place] [address] Urea nitrogen [Mass/Vol] 7 mg/dL Normal 5-21 [facility] Comment on above: Performed By: #### 2 649277, 27972480, 14974695, 2255876, 07438930, 62387286, 1614131 ####[facility] [address] [place] [address] Urea nitrogen/Creatinine [Mass ratio] 10 No Units Normal 10-20 [facility] Comment on above: Performed By: #### 2 807171, 69322034, 91240343, 7074967, 11872221, 40650932, 3521940 ####[facility] [address] [facility] [address] Anion gap [Moles/Vol] 10 mmol/L Normal 6-16 [facility] Comment on above: Performed By: #### 2 632368, 46876591, 91725737, 5526890, 56311209, 31207616, 3410477 ####[facility] [address] [place] [address] Calcium [Mass/Vol] 8.8 mg/dL Low 8.9-11.1 [facility] Comment on above: Performed By: #### 2 002128, 39565618, 31551237, 2616315, 66839430, 37850497, 2979913 ####[facility] [address] [place] [address] Chloride [Moles/Vol] 102 mmol/L Normal 101-111 [facility] Comment on above: Performed By: #### 2 446513, 36953130, 88187075, 0947273, 47576595, 42308802, 3198345 ####[facility] [address] [place] [address] CO2 [Moles/Vol] 22 mmol/L Normal 21-31 [facility] Comment on above: Performed By: #### 2 735562, 53532783, 25600589, 0274679, 77176352, 58703529, 3479786 ####[facility] [address] [place] [address] Glucose [Mass/Vol] 87 mg/dL Normal 55-199 [facility] Comment on above: Result Comment: If t his glucose result represents a fasting glucose, interpretation should refer to the following reference range: 55-99 mg/dL Performed By: #### 2 016540, 70203227, 45841208, 5539525, 75445448, 78949087, 6820135 ####[facility] [address] [place] [address] Potassium [Moles/Vol] 3.3 mmol/L Low 3.5-5.3 [facility] Comment on above: Performed By: #### 2 046747, 62282102, 30058606, 0989943, 61334564, 48173005, 0378793 ####[facility] [address] [place] [address] Sodium [Moles/Vol] 131 mmol/L Low 135-145 [facility] Comment on above: Performed By: #### 2 735521, 65145483, 92375348, 2946820, 77333569, 43321634, 3350377 ####[facility] [address] [place] [address] BNPon 09-05-2022 Int Ctr BNP Pass Normal [facility] Comment on above: Performed By: #### 2 105764, 36187301, 98289081, 2966016, 23323935, 51124397, 3032899 ####[facility] [address] [place] [address] Natriuretic peptide B (Bld) [Mass/Vol] 8 pg/mL Normal 5-80 [facility] Comment on above: Performed By: #### 2 280354, 29248233, 03390946, 3669632, 77424118, 31167207, 4093546 ####[address] [place] [address] CBC w/ Auto Diffon Erythrocyte distribution width (RBC) [Ratio] 12.7 % Normal 10.9-14.2 [facility] Comment on above: Performed By: #### 2 537256, 86997340, 65156767, 0347966, 86370696, 04214486, 9233981 ####[facility] [address] [place] [address] Hematocrit (Bld) [Volume fraction] 34.2 % Normal 34.0-46.0 [facility] Comment on above: Performed By: #### 2 559997, 77582388, 47311779, 4083120, 46864323, 64180235, 1065385 ####[address] [address] Hemoglobin (Bld) [Mass/Vol] 12.3 g/dL Normal 12.0-16.0 [facility] Comment on above: Performed By: #### 2 254949, 67191582, 40846082, 9665984, 56645753, 23652799, 1418138 ####[address] [address] MCH (RBC) [Entitic mass] 31.8 pg Normal 27.0-34.0 [facility] Comment on above: Performed By: #### 2 556637, 37782332, 34011733, 2817162, 36158938, 70118141, 2241161 ####[address] [address] MCHC (RBC) [Mass/Vol] 35.9 g/dL Normal 31.4-36.0 [facility] Comment on above: Performed By: #### 2 378159, 36085355, 71839191, 7572521, 65865545, 66974516, 3161246 ####[address] [address] MCV (RBC) [Entitic vol] 88.7 fL Normal 80.0-100.0 [facility] Comment on above: Performed By: #### 2 266835, 63733570, 33985914, 3286216, 80274288, 50331111, 6829063 ####[address] [address] Platelet mean volume (Bld) [Entitic vol] 9.8 fL Normal 6.4-10.8 [facility] Comment on above: Performed By: #### 2 320633, 16307575, 24751880, 8530611, 40525343, 64754840, 8479483 ####[address] [place] [address] Platelets (Bld) [#/Vol] 215.0 E9/L Normal 150.0-500.0 [facility] Comment on above: Performed By: #### 2 014368, 03823445, 11134489, 9810009, 37540908, 23926299, 5658545 ####[facility] [address] [place] [address] RBC (Bld) [#/Vol] 3.9 E12/L Low 4.3-5.9 [facility] Comment on above: Performed By: #### 2 792173, 31585254, 45432195, 9798875, 11801849, 02484020, 1051407 ####[facility] [address] [place] [address] WBC corrected for nucl RBC Auto (Bld) [#/Vol] 10.9 E9/L Normal 4.0-11.0 [facility] Comment on above: Result Comment: Slid e reviewed by ts. Performed By: #### 2 217400, 45091211, 37809823, 0763927, 62165534, 95962418, 8727601 ####[facility] [address] [place] [address] CHEMISTRYOrdered By: SYSTEM SYSTEM on 09-05-2022 Anion gap [Moles/Vol] 10 mmol/L Normal 6 - 16 mEq/L [facility] Remisol Calcium [Mass/Vol] [...] mL/min/1.73 m2 Normal >=59mL/min/ 1.73 m2 [facility] Chem S GFR/1.73 sq M.predicted among non-blacks MDRD (S/P/Bld) [Vol rate/Area] mL/min/1.73 m2 Normal >=59mL/min/ 1.73 m2 [facility] Chem S Glucose [Mass/Vol] 87 mg/dL Normal 55 - 199 mg/dL [facility] Remisol Potassium [Moles/Vol] 3.3 mmol/L Low 3.5 - 5.3 mmol/L [facility] Remisol Sodium [Moles/Vol] 131 mmol/L Low 135 - 145 mmol/L [facility] Remisol Troponin I.cardiac [Mass/Vol] 4.70 pg/mL Low 10.10 - 27.10 pg/mL [facility] Remisol Urea nitrogen [Mass/Vol] 7 mg/dL Normal 5 - 21 mg/dL [facility] Remisol Urea nitrogen/Creatinine [Mass ratio] 10 mg/mg Normal 10 - 20 [facility] CHEMISTRYOrdered By: Temi hayden on 09-05-2022 Natriuretic peptide B (Bld) [Mass/Vol] 8 pg/mL Normal 5 - 80 pg/mL [facility] HemeManSS COAGULATIONOrdered By: Yamile Li on 09-05-2022 aPTT Coag (PPP) [Time] 27.1 s Normal 25.1 - 36.5 second(s) [facility] Auto Coag INR Coag (PPP) [Relative time] 0.9 {INR} Invalid Interpretation Code [facility] Auto Coag PT Coag (PPP) [Time] 10.3 s Normal 9.4 - 1 2.5 second(s) [facility] Auto Coag Consent for Treatmenton 08-16 Consent for Treatment [id number]#[id number]:12 7 Normal [facility] ED Note-Nursingon 09-05-2022 ED Note-Nursing Normal [facility] ED Note-Physicianon 09-05-20 ED Note-Physician Normal [facility] Comment on above: Result Comment: Elec tronically Signed By: Gopi Rodriguez DO\Date and Time Signed: 09/05/22 21:46 EST Group B Strep by PCRon 09-05 Group B Strep colonization by PCR Negative Normal Negative [facility] Comment on above: Performed By: #### 4 [id number] ####[facility] [address] [place] [address] HEMATOLOGYOrdered By: SYSTEM SYSTEM on 09-05-2022 Basophils/100 [...] PM) Invalid Interpretation Code Not Detected [facility] Man Sero Comment on above: Result Comment: Resu lts Called To Berna Cook RN/ER By AGNIESZKA And Read Back For Confirmation On 09/05/2022 21:14:20 EST Results Verified By Repeat Analysis PT & PTTon 09-05-2022 aPTT Coag (PPP) [Time] 27.1 second(s) Normal 25.1-36.5 [facility] Comment on above: Result Comment: Para [...] same coagulation reagent and instrumentation as [facility]. Currently there are no coagulation studies available worldwide for children to 14 days, and no normal ranges. Heparin therapeutic range (represented by Anti-Factor Xa activity of 0.2 - 0.4 U/mL) corresponds to PTT of 56.6 - 109.0 sec. Performed By: #### 2 422551, 78371054, 14679191, 2490645, 38834693, 86816312, 9110873 ####[facility] [address] [place] [address] INR Coag (PPP) [Relative time] 0.9 {INR} Invalid Interpretation Code [facility] Comment on above: Result Comment: INR results are specifically intended to assess patients stabilized on long-term Anticoagulation therapy suggested INR?s ?Less Intensive Anticoagulation? 2.0 ? 3.0Conventional Range 3.0 ? 4.5 Performed By: #### 2 482596, 29373990, 36265958, 7878531, 95223306, 30189244, 9200466 ####[facility] [address] [place] [address] PT Coag (PPP) [Time] 10.3 second(s) Normal 9.4-12.5 [facility] Comment on above: Result Comment: 15 [...] same coagulation reagent and instrumentation as [facility]. Currently there are no coagulation studies available worldwide for children to 14 days, and no normal ranges. Performed By: #### 2 071315, 35250276, 34936520, 6895705, 36002410, 05061910, 9327938 ####[facility] [address] [place] [address] Rapid COVID Antigen ([facility])on 09-05-2022 Rapid COV Int NEG Ctl Pass Normal Fis her [facility] Comment on above: Performed By: #### 2 [id number] ####[facility] [address] [place] [address] Rapid COV Int POS Ctl Pass Normal Fis her [facility] Comment on above: Performed By: #### 2 310014528 ####[address] [place] [address] SARS-CoV+SARS-CoV-2 (COVID-19) Ag IA.rapid Ql (Resp) Detected Abnormal Not Detected [facility] Comment on above: Result Comment: Resu lts Called To Berna Cook RN/ER By AGNIESZKA And Read Back For Confirmation On 09/05/2022 21:14:20 ESTResults Verified By Repeat AnalysisThe Haileo? System for Rapid Detection of SARS-CoV-2 is [...] other viruses or pathogens; and, in the [facility], this test is only authorized for the duration of the declaration that circumstances exist justifying the authorization of emergency use of in vitro diagnostics for detection and/or diagnosis of the virus that causes COVID-19 under Section 564(b)(1) of the Act, 21 U.S.C. ? 360bbb-3(b)(1), unless the authorization is terminated or revoked sooner. Performed By: #### 2 [id number] ####[place] [address] ADMITTED TO INTENSIVE CARE UNIT FOR CONDITION OF INTEREST:FIND:PT: NO Normal [facility] Comment on above: Performed By: #### 2 [id number] ####[place] [address] EMPLOYED IN A HEALTHCARE SETTING:FIND:PT: NO Normal [facility] Comment on above: Performed By: #### 2 [id number] ####[place] [address] FIRST TEST FOR CONDITION OF INTEREST:FIND:PT: YES Normal [facility] Comment on above: Performed By: #### 2 [id number] ####[place] [address] HAS SYMPTOMS RELATED TO CONDITION OF INTEREST:FIND:PT: YES Normal [facility] Comment on above: Performed By: #### 2 [id number] ####[place] [address] HOSPITALIZED FOR CONDITION OF INTEREST:FIND:PT: NO Normal [facility] Comment on above: Performed By: #### 2 [id number] ####[place] [address] STATUS:FIND:PT: NO Normal [facility] Comment on above: Performed By: #### 2 [id number] ####[facility] [address] [place] [address] RESIDES IN A CONGREGATE CARE SETTING:FIND:PT: NO Normal [facility] Comment on above: Performed By: #### 2 [id number] ####[facility] [address] [place] [address] Troponin 0 Hr.on 09-05-2022 Troponin I.cardiac [Mass/Vol] 4.70 pg/mL Low 10.10-27.10 [facility] Comment on above: Result Comment: The 95% CI (Confidence Interval) PPV (Positive Predictive Value) for myocardial infarction in females is 38 pg/mL, in males 51 pg/mL. The results should be used in conjunction with clinical conditions of myocardial infarction.(Access High Sensitivity Troponin I Instructions For Use, [employer], May 2018) Performed By: #### 2 593838, 46596989, 24929221, 5842526, 69038712, 22639333, 1686329 ####[facility] [address] [place] [address] eGFRon 09-05-2022 GFR/1.73 sq M.predicted among blacks MDRD (S/P/Bld) [Vol rate/Area] mL/min/{1.73_m2} Normal >=59 [facility] Comment on above: Order Comment: Order added by Discern Expert. Result Comment: eGFR is race adjusted. AA=. Performed By: #### 2 040663, 14675703, 17907667, 5812166, 16041339, 36043257, 9782268 ####[facility] [address] [place] [address] GFR/1.73 sq M.predicted among non-blacks MDRD (S/P/Bld) [Vol rate/Area] mL/min/{1.73_m2} Normal >=59 [facility] Comment on above: Order Comment: Order added by Discern Expert. Result Comment: Hot [employer] Worker lucy kidney disease could be indicated at eGFR's of less than 60 mL/min/1.73m2. Kidney failure is indicated at less than 15 mL/min/1.73m2. Performed By: #### 2 511577, 46322255, 30216145, 0636834, 94674382, 22011053, 3336873 ####[facility] [address] [place] [address] Coding Summary.on 09-04-2022 Coding Summary. Normal [facility] Nursing Assessmenton 022 Nursing Assessment [id number]#1.00CD:1 27 Normal [facility] Physician Orderon 09-04-2022 Physician Order [id number]#1.00CD:1 27 Normal [facility] ABO/Rhon 08-31-2022 ABO/Rh Positive Invalid Interpretation Code [facility] Comment on above: Performed By: #### 1 3209886, 9058929, 18548977, 76669800 ####[facility] [address] [place] [address] ABO/Rh History Checkon 08-31 ABO/Rh History Check Verified Hx Blood Type Normal [facility] Comment on above: Performed By: #### 1 0808912, 8963384, 19289978, 43149494 ####[address] [place] [address] ABSCon 08-31-2022 ABSC Gel Interp Negative Normal [facility] Comment on above: Performed By: #### 1 0651046, 1697923, 89837714, 49761279 ####[facility] [address] [place] [address] BUNon 08-31-2022 Urea nitrogen [Mass/Vol] 8 mg/dL Normal 03-04 [facility] Comment on above: Performed By: #### 2 528473, 6371781, 99922181, 6138834, 37436354, 4376648, 3727972, 3021229, 5663142, 4726170, 55600413 ####[facility] [address] [place] [address] Blood Bank ID#on 08-31-2022 BBID# [id number] Invalid Interpretation Code [facility] Comment on above: Performed By: #### 1 1540418, 8269327, 58120177, 72400708 ####[address] [place] [address] CBC w/Indiceson 08-31-2022 Erythrocyte distribution width (RBC) [Ratio] 12.9 % Normal 10.9-14.2 [facility] Comment on above: Performed By: #### 2 347627, 6428476, 18434223, 9582597, 95864761, 6270667, 1248124, 0491708, 0157475, 1520964, 80710380 ####[address] [address] Hematocrit (Bld) [Volume fraction] 35.0 % Normal 34.0-46.0 [facility] Comment on above: Performed By: #### 2 331624, 6119551, 80618702, 6934633, 43254889, 0516545, 7357252, 8878046, 7626695, 1316843, 88673416 ####[address] [place] [address] Hemoglobin (Bld) [Mass/Vol] 12.0 g/dL Normal 12.0-16.0 [facility] Comment on above: Performed By: #### 2 741255, 4772525, 27586815, 1291630, 65454244, 9186738, 2584529, 1206248, 1148211, 4634834, 35192782 ####[address] [place] [address] MCH (RBC) [Entitic mass] 30.7 pg Normal 27.0-34.0 [facility] Comment on above: Performed By: #### 2 254712, 0118273, 09289893, 5591328, 59633283, 9688807, 5344553, 4604965, 7049563, 6170293, 76849542 ####[place] [facility] [address] [place] [address] MCHC (RBC) [Mass/Vol] 34.4 g/dL Normal 31.4-36.0 [facility] Comment on above: Performed By: #### 2 030941, 9654242, 05223552, 7562305, 16169732, 9572310, 4189997, 0702632, 7787958, 4445591, 52492922 ####[facility] [address] [place] [address] MCV (RBC) [Entitic vol] 89.5 fL Normal 80.0-100.0 [facility] Comment on above: Performed By: #### 2 224851, 9174475, 56552353, 8041144, 98556423, 0004527, 3404293, 4542477, 5961994, 7218218, 64690616 ####[place] [facility] [address] [place] [address] Platelet mean volume (Bld) [Entitic vol] 9.8 fL Normal 6.4-10.8 [facility] Comment on above: Performed By: #### 2 087911, 5782245, 84865324, 9038093, 70695507, 2242711, 6461828, 4213225, 1201894, 5110273, 57304786 ####[facility] [address] [place] [address] Platelets (Bld) [#/Vol] 234.0 E9/L Normal 150.0-500.0 [facility] Comment on above: Performed By: #### 2 244849, 3108914, 92714918, 3989670, 14644122, 3026746, 2789831, 9504004, 7562022, 4337340, 40024957 ####[facility] [address] [place] [address] RBC (Bld) [#/Vol] 3.9 E12/L Low 4.3-5.9 [facility] Comment on above: Performed By: #### 2 829842, 1831319, 90240938, 1937440, 89849140, 8226370, 1558919, 5023881, 5976921, 3957965, 89207921 ####[facility] [address] [place] [address] WBC corrected for nucl RBC Auto (Bld) [#/Vol] 12.6 E9/L High 4.0-11.0 [facility] Comment on above: Performed By: #### 2 873591, 2271021, 30432620, 9105936, 87148690, 6913609, 5669571, 7356436, 6238384, 7372701, 07132622 ####[facility] [address] [place] [address] Creatinineon 08-31-2022 Creatinine [Mass/Vol] 0.7 mg/dL Normal 0.5-1.3 [facility] Comment on above: Performed By: #### 2 383049, 8947605, 95080970, 6064629, 77449762, 4647731, 7983443, 7164757, 0071219, 5902268, 99402100 ####[address] [address] Discharge Instructionson Discharge Instructions [id number]#[id number]:12 7 Normal [facility] Ethanolon 08-31-2022 Ethanol [Mass/Vol] mg/dL Normal <=7 [facility] Comment on above: Performed By: #### 2 888939 ####[facility] [address] [place] [address] FSPon 08-31-2022 Fibrin+Fibrinogen fragments (S) [Mass/Vol] <10 Normal <10 [facility] Comment on above: Performed By: #### 2 518846, 9509140, 96795287, 1111624, 83639002, 8150062, 8383475, 2426223, 8145450, 2821010, 33795342 ####[facility] [address] [place] [address] Stainon 08-31-2022 FMHV 0 mL Invalid Interpretation Code [facility] Comment on above: Performed By: #### 2 165983, 6916011, 28516093, 1647969, 46927480, 5757600, 7609880, 9543995, 4138738, 4413369, 04675092 ####[facility] [address] [place] [address] Negative Control Negative Normal [facility] Comment on above: Performed By: #### 2 825176, 0483554, 10699001, 9718538, 94636056, 2749054, 8123387, 0410202, 9014765, 5372999, 61401586 ####[facility] [address] [place] [address] Fibrinogenon 08-31-2022 Fibrinogen Coag (PPP) [Mass/Vol] 406 mg/dL High 200-393 [facility] Comment on above: Performed By: #### 2 380745, 3113255, 75043225, 8288245, 90136396, 5805231, 8860977, 1601018, 8717219, 0356571, 66564353 ####[facility] [address] [place] [address] Hep Func Panelon 08-31-2022 Bilirubin.indirect [Mass or moles/Vol] UTC Abnormal 0.1-0.9 [facility] Comment on above: Result Comment: Resu lt verified by Discern Rule. Performed result UTC (Unable to Calculate) was sent as an Alpha code due the inability to calculate a valid numeric value. Performed By: #### 2 132262, 4993768, 85274856, 5370455, 14345736, 3539948, 2413095, 8004047, 9453518, 2739281, 61441391 ####[facility] [address] [place] [address] Albumin [Mass/Vol] 2.8 g/dL Low 3.3-5.0 [facility] Comment on above: Performed By: #### 2 115668, 9351300, 60196345, 7643828, 93616557, 4114899, 3402618, 0493402, 9929788, 0300026, 14988336 ####[facility] [address] [place] [address] Albumin/Globulin (S) [Mass conc ratio] 0.7 Low 1.1-2.2 [facility] Comment on above: Performed By: #### 2 187205, 9052127, 03378424, 9276241, 00489482, 4045408, 4103106, 2444564, 5898311, 1931690, 10044004 ####[facility] [address] [place] [address] ALP [Catalytic activity/Vol] 80 Int._Unit/L Normal 21-98 [facility] Comment on above: Performed By: #### 2 397274, 1843266, 78385057, 5553626, 98241122, 3756436, 0804801, 7589136, 6616035, 0738590, 91577276 ####[facility] [address] [place] [address] ALT No additional P-5'-P [Catalytic activity/Vol] 10 Int._Unit/L Normal 6-46 [facility] Comment on above: Performed By: #### 2 872344, 8592576, 72951197, 3187522, 07824608, 6419941, 3733142, 5408677, 8925156, 3872519, 65845400 ####[facility] [address] [place] [address] AST [Catalytic activity/Vol] 16 Int._Unit/L Normal 5-43 [facility] Comment on above: Performed By: #### 2 599956, 1430305, 48882712, 8294748, 49737279, 9331515, 1630237, 4219773, 7435489, 5677771, 62585654 ####[facility] [address] [place] [address] Bilirubin [Mass/Vol] 0.1 mg/dL Normal 0.0-1.1 [facility] Comment on above: Performed By: #### 2 264187, 0162276, 87940056, 9242438, 58408905, 1476314, 9189770, 2156619, 3920884, 9962152, 62064991 ####[facility] [address] [place] [address] Bilirubin.direct [Mass/Vol] mg/dL Normal 0.1-0.4 [facility] Comment on above: Performed By: #### 2 079874, 4049899, 43271841, 5277581, 31332747, 2169300, 4175535, 6242351, 6951269, 4800012, 82381004 ####[facility] [address] [place] [address] Globulin (S) [Mass/Vol] 3.8 g/dL Normal 1.4-4.0 [facility] Comment on above: Performed By: #### 2 616583, 3039556, 79613597, 1032103, 42094667, 1987856, 9816193, 4203788, 7893356, 3928734, 02588484 ####[facility] [address] [place] [address] Protein [Mass/Vol] 6.6 g/dL Normal 6.0-7.8 [facility] Comment on above: Performed By: #### 2 837793, 1765301, 28275023, 0734770, 53176294, 8285010, 7322357, 8566673, 3251643, 6909942, 04674592 ####[facility] [address] [place] [address] Inpatient Clinical Summaryon 08-31-2022 Inpatient Clinical Summary Normal [facility] Inpatient Patient Summaryon 08-31-2022 Inpatient Patient Summary Normal [facility] Lyteson 08-31-2022 Anion gap [Moles/Vol] 13 mmol/L Normal 6-16 [facility] Comment on above: Performed By: #### 2 136924, 6763835, 18374781, 5745687, 84899164, 5401858, 8718053, 0002336, 7099481, 5664621, 66604802 ####[facility] [address] [place] [address] Chloride [Moles/Vol] 104 mmol/L Normal 101-[address] [facility] Comment on above: Performed By: #### 2 937581, 7598093, 74579406, 4314577, 57749941, 1346451, 8781886, 3170627, 6502697, 2790269, 19786430 ####[facility] [address] [place] [address] CO2 [Moles/Vol] 22 mmol/L Normal 21-31 [facility] Comment on above: Performed By: #### 2 052169, 1870843, 52616838, 1067471, 96326311, 2372940, 0180144, 7697795, 4518125, 3810878, 64565082 ####[facility] [address] [place] [address] Potassium [Moles/Vol] 3.5 mmol/L Normal 3.5-5.3 [facility] Comment on above: Performed By: #### 2 806978, 7685344, 68500360, 5609071, 40093727, 0443050, 8064206, 7648515, 5694042, 7726490, 50763671 ####[facility] [address] [place] [address] Sodium [Moles/Vol] 135 mmol/L Normal 135-145 [facility] Comment on above: Performed By: #### 2 079023, 5717123, 65473444, 3922396, 70191805, 4464708, 0399502, 6002616, 7581168, 6639068, 65751445 ####[facility] [address] [place] [address] Nursing Assessmenton 022 Nursing Assessment [id number]#[id number]:12 7 Normal [facility] PT & PTTon 08-31-2022 aPTT Coag (PPP) [Time] 26.3 second(s) Normal 25.1-36.5 [facility] Comment on above: Result Comment: Para [...] same coagulation reagent and instrumentation as [facility]. Currently there are no coagulation studies available worldwide for children to 14 days, and no normal ranges. Heparin therapeutic range (represented by Anti-Factor Xa activity of 0.2 - 0.4 U/mL) corresponds to PTT of 56.6 - 109.0 sec. Performed By: #### 2 859149, 4572410, 68399572, 2664226, 57471741, 9073652, 8740741, 1667310, 4929662, 3032103, 76616294 ####[facility] [address] [place] [address] INR Coag (PPP) [Relative time] 0.9 {INR} Invalid Interpretation Code [facility] Comment on above: Result Comment: INR results are specifically intended to assess patients stabilized on long-term Anticoagulation therapy suggested INR?s ?Less Intensive Anticoagulation? 2.0 ? 3.0Conventional Range 3.0 ? 4.5 Performed By: #### 2 935276, 7621677, 73015727, 9024397, 81717558, 9599036, 0276159, 0174228, 2072307, 7908337, 33442025 ####[facility] [address] [place] [address] PT Coag (PPP) [Time] 10.2 second(s) Normal 9.4-12.5 [facility] Comment on above: Result Comment: 15 [...] same coagulation reagent and instrumentation as [facility]. Currently there are no coagulation studies available worldwide for children to 14 days, and no normal ranges. Performed By: #### 2 372765, 7805628, 58623714, 4250663, 34970606, 0292527, 9453559, 3287671, 9974518, 1038022, 33237355 ####[facility] [address] [place] [address] U Drug Screenon 08-31-2022 Amphetamines Screen method >1000 ng/mL Ql (U) Negative Normal Negative [facility] Comment on above: Result Comment: Nega tive Cutoff: <1000 ng/mL Performed By: #### 2 320633, 68025241 ####[facility] [address] [place] [address] Barbiturates Screen Ql (U) Negative Normal Negative [facility] Comment on above: Result Comment: Nega tive Cutoff: <200 ng/mL Performed By: #### 2 703439, 83982773 ####[facility] [address] [place] [address] Benzodiazepines Ql (U) Negative Normal Negative Fi [facility] Comment on above: Result Comment: Nega tive Cutoff: <200 ng/mL Performed By: #### 2 836928, 98993992 ####[facility] [address] [place] [address] Cocaine Ql (U) Negative Normal Negative [facility] Comment on above: Result Comment: Nega tive Cutoff: <300 ng/mL Performed By: #### 2 694291, 48366121 ####[facility] [address] [place] [address] Opiates Screen Ql (U) Negative Normal Negative Fis [facility] Comment on above: Result Comment: Nega tive Cutoff: <300 ng/mL Performed By: #### 2 513784, 20759240 ####[facility] [address] [place] [address] Phencyclidine Screen method >25 ng/mL Ql (U) Negative Normal Negative [facility] Comment on above: Result Comment: Nega tive Cutoff: <25 ng/mLThese drug screen results are to be used for medical (i.e., treatment) purposes only. Unconfirmed drug screening results must not be used for non-medical purposes (e.g., employment testing, legal testing). Performed By: #### 2 994982, 10761461 ####[facility] [address] [place] [address] Tetrahydrocannabinol Screen method >50 ng/mL Ql (U) Negative Normal Negative [facility] Comment on above: Result Comment: Nega tive Cutoff: <50 ng/mL Performed By: #### 2 998471, 27146545 ####[facility] [address] [place] [address] UA With Cult Reflexon 2021 Bacteria LM Ql (Urine sed) TRACE Normal Trace [facility] Comment on above: Performed By: #### 2 548040, 09844232 ####[facility] [address] [place] [address] Bilirubin Ql (U) Negative Normal Negative [facility] Comment on above: Performed By: #### 2 974880, 74782015 ####[facility] [address] [place] [address] Clarity (U) CLEAR Normal Clear [facility] Comment on above: Performed By: #### 2 694474, 99783528 ####[facility] [address] [place] [address] Color (U) YELLOW Normal Yellow [facility] Comment on above: Performed By: #### 2 404832, 47924314 ####[address] [address] Epithelial cells.squamous LM.HPF (Urine sed) [#/Area] 0-2 Normal 0-2 [facility] Comment on above: Performed By: #### 2 290746, 80744869 ####[address] [address] Glucose Test strip (U) [Mass/Vol] Negative Normal Negative [facility] Comment on above: Performed By: #### 2 693112, 26713838 ####[facility] [address] [place] [address] Hemoglobin Ql (U) Negative Normal Negative [facility] Comment on above: Performed By: #### 2 448408, 70184488 ####[facility] [address] [place] [address] Ketones (U) [Mass/Vol] Negative Normal Negative [facility] Comment on above: Performed By: #### 2 506582, 03490185 ####[facility] [address] [place] [address] [place].plasma/[place] .RBC (Bld) [Mass ratio] 0-3 Normal 0-3 [facility] Comment on above: Performed By: #### 2 400835, 30799900 ####[facility] [address] [place] [address] Nitrite Ql (U) Negative Normal Negative [facility] Comment on above: Performed By: #### 2 909021, 79964823 ####[facility] [address] [place] [address] pH (U) 6.0 [pH] Invalid Interpretation Code 5.0-9.0 [facility] Comment on above: Performed By: #### 2 228474, 51489879 ####[address] [address] Protein (U) [Mass/Vol] Negative Normal Negative Fi [facility] Comment on above: Performed By: #### 2 016983, 65527758 ####[address] [address] Specific gravity (U) [Rel density] 1.010 Invalid Interpretation Code 1.005-1.030 [facility] Comment on above: Performed By: #### 2 613184, 83455649 ####[address] [address] Type of Urine collection method Clean Catch Normal [facility] Comment on above: Performed By: #### 2 733594, 89329772 ####[address] [address] Urobilinogen Qn (U) 0.2 {Rola'U}/dL Normal 0.0-1.0 [facility] Comment on above: Performed By: #### 2 496237, 28956637 ####[address] [address] WBC Auto Ql (U) Negative Normal Negative [facility] Comment on above: Performed By: #### 2 353211, 94466292 ####[address] [address] WBC LM.HPF (Urine sed) [#/Area] 0-5 Normal 0-5 [facility] Comment on above: Performed By: #### 2 892003, 33492114 ####[address] [address] Uric Acidon 08-31-2022 Urate [Mass/Vol] 5.0 mg/dL Normal 2.2-7.4 [facility] Comment on above: Performed By: #### 2 156525, 7067968, 81664313, 8371787, 47026562, 7307994, 9012419, 0036662, 6844986, 9177181, 78671158 ####[facility] [address] [place] [address] eGFRon 08-31-2022 GFR/1.73 sq M.predicted among blacks MDRD (S/P/Bld) [Vol rate/Area] mL/min/{1.73_m2} Normal >=59 [facility] Comment on above: Order Comment: Order added by Discern Expert. Result Comment: eGFR is race adjusted. AA=. Performed By: #### 2 450884, 3975626, 71266538, 9813620, 44644375, 4032082, 7186155, 8094963, 5306748, 9227845, 00497677 ####[address] [place] [address] GFR/1.73 sq M.predicted among non-blacks MDRD (S/P/Bld) [Vol rate/Area] mL/min/{1.73_m2} Normal >=59 [facility] Comment on above: Order Comment: Order added by Discern Expert. Result Comment: [employer] Worker lucy kidney disease could be indicated at eGFR's of less than 60 mL/min/1.73m2. Kidney failure is indicated at less than 15 mL/min/1.73m2. Performed By: #### 2 351040, 7714574, 03572920, 5741114, 60587036, 5968455, 0504476, 5427857, 6408570, 1939587, 55740147 ####[facility] [address] [place] [address] BLOOD BANKOrdered By: Naldo Li on 08-30-2022 [...] Consent for Treatmenton 08-15 Consent for Treatment [id number]#[id number]:12 7 Normal [facility] HEMATOLOGYOrdered By: Naldo Li on 08-30-2022 [...] PM) Normal Negative [facility] UA Auto SS [place].plasma/[place] .RBC (Bld) [Mass ratio] 0-3 /HPF [...] FT UA Auto SS Urobilinogen Qn (U) 0.7343317 {Rola'U}/dL Normal 0.0 - 1.0 EU/dL [facility] UA Auto SS WBC Auto Ql (U) Negative (08/30/22 9:45 PM) Normal Negative [facility] UA Auto SS WBC LM.HPF (Urine sed) [#/Area] 0-5 /HPF Normal 0-5/HPF [facility] UA Auto SS Coding Summary.on 08-28-2022 Coding Summary. Normal [facility] BLOOD BANKOrdered By: Janet Reyes on 08-22-2022 ABO/Rh Interp Positive Invalid Interpretation Code [facility] BB Subsection ABSC Gel Interp Negative (08/22/22 4:03 PM) Normal [facility] BB Subsection FMHV 0 mL Invalid Interpretation Code [facility] Man Sero CHEMISTRYOrdered [...] mL/min/1.73 m2 Normal >=59mL/min/ 1.73 m2 [facility] Chem S GFR/1.73 [...] PM) Normal Negative [facility] UA Auto SS [place].plasma/[place] .RBC (Bld) [Mass ratio] 0-3 /HPF [...] [facility] UA Auto SS Urobilinogen Qn (U) 0.6984545 {Rola'U}/dL Normal 0.0 - 1.0 EU/dL [facility] [...] AM) Normal Negative [facility] UA Auto SS [place].plasma/[place] .RBC (Bld) [Mass ratio] 0-3 /HPF Normal 0-3/HPF [facility] UA Auto SS Mucus Ql (Urine sed) 1+ (08/18/22 4:08 AM) Normal FT UA Auto SS Nitrite [...] Desc Clean Catch (08/18/22 4:08 AM) Normal [facility] UA Auto SS Urobilinogen Qn (U) 0.1207986 {Rola'U}/dL Normal 0.0 - 1.0 EU/dL FT UA Auto SS WBC Auto Ql (U) 2+ *ABN* (08/18/22 4:08 AM) Invalid Interpretation Code Negative [facility] UA Auto SS WBC LM.HPF (Urine sed) [#/Area] 6-15 /HPF Invalid Interpretation Code 0-5/HPF [facility] UA Auto SS BLOOD BANKOrdered By: Tom Avelar on 08-13-2022 ABO/Rh Interp Positive Invalid Interpretation Code [facility] BB Subsection ABSC Gel Interp Negative (08/13/22 6:26 PM) Normal [facility] BB Subsection FMHV 0 mL Invalid Interpretation Code [facility] Man Sero CHEMISTRYOrdered [...] Interpretation Code Negative [facility] UA Auto SS [place].plasma/[place] .RBC (Bld) [Mass ratio] 0-3 /HPF [...] [facility] UA Auto SS Urobilinogen Qn (U) 0.1553821 {Rola'U}/dL Normal 0.0 - 1.0 EU/dL [facility] [...] AM) Normal Negative [facility] UA Auto SS [place].plasma/[place] .RBC (Bld) [Mass ratio] 0-3 /HPF [...] [facility] UA Auto SS Urobilinogen Qn (U) 0.2372085 {Rola'U}/dL Normal 0.0 - 1.0 EU/dL [facility] [...] (Urine sed) [#/Area] 3-4 /HPF Normal 0-2/HPF [facility] UA Auto SS Glucose Test strip (U) [Mass/Vol] Negative (07/17/22 9:25 AM) Normal Negative [facility] UA Auto SS Hemoglobin Ql (U) Negative (07/17/22 9:25 AM) Normal Negative [facility] UA Auto SS Ketones (U) [Mass/Vol] Negative (07/17/22 9:25 AM) Normal Negative [facility] UA Auto SS [place].plasma/[place] .RBC (Bld) [Mass ratio] 0-3 /HPF Normal 0-3/HPF [facility] UA Auto SS Nitrite Ql (U) Negative (07/17/22 9:25 AM) Normal Negative [facility] UA Auto SS pH (U) 7.0 *NA* (07/17/22 9:25 AM) Invalid Interpretation Code 5.0 - 9.0 [facility] UA Auto SS Protein (U) [Mass/Vol] Negative (07/17/22 9:25 AM) Normal Negative [facility] UA Auto SS Specific gravity (U) [Rel density] <=1.005 *NA* (07/17/22 9:25 AM) Invalid Interpretation Code 1.005 - 1.030 [facility] UA Auto SS UA Spec Desc Clean Catch (07/17/22 9:25 AM) Normal [facility] UA Auto SS Urobilinogen Qn (U) 0.4644024 {Rola'U}/dL Normal 0.0 - 1.0 EU/dL [facility] UA Auto SS WBC Auto Ql (U) Negative (07/17/22 9:25 AM) Normal Negative [facility] UA Auto SS WBC LM.HPF (Urine sed) [#/Area] 0-5 /HPF Normal 0-5/HPF [facility] UA Auto SS CHEMISTRYOrdered By: [employer] on 06-28-2022 Glucose 1 Hr post 50 g glucose PO [Mass/Vol] 93 mg/dL Normal 55 - 140 mg/dL [facility] Remisol HEMATOLOGYOrdered By: Keila Ring on 06-28-2022 Hematocrit (Bld) [Volume fraction] 35.4 % Normal 34.0 - 46.0 % [facility] HemeAutoSS Hemoglobin (Bld) [Mass/Vol] 12.1 g/dL Normal 12.0 - 16.0 gm/dL [facility] HemeAutoSS BLOOD BANKOrdered By: Jeanette Castle on 06-19-2022 ABO/Rh Interp Positive Invalid Interpretation Code [facility] BB Subsection ABSC Gel Interp Negative (06/19/22 12:15 AM) Normal [facility] BB Subsection FMHV 0 mL Invalid Interpretation Code [facility] Man Sero CHEMISTRYOrdered [...] - 5.3 mmol/L FT Remisol Protein [Mass/Vol] 6.4 g/dL Normal 6.0 [...] [Mass/Vol] <10 (06/19/22 12:15 AM) Normal <10 [facility] Man Sero Fibrinogen [...] PM) Normal Negative [facility] UA Auto SS [place].plasma/[place] .RBC (Bld) [Mass ratio] 0-3 /HPF [...] [facility] UA Auto SS Urobilinogen Qn (U) 0.6022445 {Rola'U}/dL Normal 0.0 - 1.0 EU/dL [facility] [...] (Urine sed) [#/Area] 5-8 /HPF Normal 0-2/HPF FT UA Auto SS Glucose Test strip (U) [Mass/Vol] Negative (05/01/22 5:20 PM) Normal Negative [facility] UA Auto SS Hemoglobin Ql (U) Negative (05/01/22 5:20 PM) Normal Negative [facility] UA Auto SS Ketones (U) [Mass/Vol] Negative (05/01/22 5:20 PM) Normal Negative [facility] UA Auto SS [place].plasma/[place] .RBC (Bld) [Mass ratio] 0-3 /HPF Normal 0-3/HPF [facility] UA Auto SS Mucus Ql (Urine sed) Trace (05/01/22 5:20 PM) Normal [facility] UA Auto SS Nitrite Ql (U) Negative (05/01/22 5:20 PM) Normal Negative [facility] UA Auto SS pH (U) 5.5 *NA* (05/01/22 5:20 PM) Invalid Interpretation Code 5.0 - 9.0 [facility] UA Auto SS Protein (U) [Mass/Vol] Trace *ABN* (05/01/22 5:20 PM) Invalid Interpretation Code Negative [facility] UA Auto SS Specific gravity (U) [Rel density] >=1.030 *NA* (05/01/22 5:20 PM) Invalid Interpretation Code 1.005 - 1.030 [facility] UA Auto SS UA Spec Desc Random Urine (05/01/22 5:20 PM) Normal [facility] UA Auto SS Urobilinogen Qn (U) 1.7791268 {Rola'U}/dL Normal 0.0 - 1.0 EU/dL [facility] Auto SS WBC Auto Ql (U) Negative (05/01/22 5:20 PM) Normal Negative [facility] UA Auto SS WBC LM.HPF (Urine sed) [#/Area] 0-5 /HPF Normal 0-5/HPF [facility] UA Auto SS BLOOD BANKOrdered By: Shayy Medina on 04-02-2022 ABO/Rh Interp Positive Invalid Interpretation Code [facility] BB Subsection ABSC Gel Interp Negative (04/02/22 7:17 AM) Normal [facility] BB Subsection FMHV 0 mL Invalid Interpretation Code [facility] Man Sero CHEMISTRYOrdered [...] LM.HPF (Urine sed) [#/Area] /[HPF] Normal 0-2/HPF [facility] Auto SS Glucose Test strip (U) [Mass/Vol] Negative (04/02/22 6:05 AM) Normal Negative [facility] UA Auto SS Hemoglobin Ql (U) 3+ *ABN* (04/02/22 6:05 AM) Invalid Interpretation Code Negative [facility] UA Auto SS Ketones (U) [Mass/Vol] Negative (04/02/22 6:05 AM) Normal Negative [facility] UA Auto SS [place].plasma/[place] .RBC (Bld) [Mass ratio] 0-3 /HPF [...] [facility] Auto SS Urobilinogen Qn (U) 0.5742343 {Rola'U}/dL Normal 0.0 - 1.0 EU/dL [facility] [...] PM) Normal Negative [facility] UA Auto SS [place].plasma/[place] .RBC (Bld) [Mass ratio] 0-3 /HPF [...] [facility] UA Auto SS Urobilinogen Qn (U) 0.3964651 {Rola'U}/dL Normal 0.0 - 1.0 EU/dL [facility] [...] E9/L Normal 4.0 - 11.0 E9/L [facility] HemeAutoSS Reference Laboratory Testing Ordered By: Stephanie Diana on 02-15-2022 Test Code 166133 Invalid Interpretation Code [facility] SendOutsSS Test Name IG PAP CTNG HPV Invalid Interpretation Code [facility] SendOutsSS CNPNon 05-05-2021 CNPN Telephone (GSTCON) ----- SUSAN BRO ([id number]) 1995 F Date Time Provider Department 05/05/21 MARTHA WEBB During your visit today, we recorded the following information about you: Tucker Bales Processing Engineer 05/05/2021 10:37 AM Signed Patient left message [...] diligent work on this patient Tucker Bales Processing Engineer 05/24/2021 2:23 PM Signed patient called and left a message today stating she needs to get this figured out she has not eaten in 3 days and cant even drink water now. Patient can be reached at [phone]- please read messages below for refresher Martha Webb MD 05/24/2021 4:30 PM Signed Please advise patient to go to ER for evaluation Tucker Fournier 05/24/2021 4:35 PM Signed Had to leave a message for the patient, left the message to go to ER. Also returned the call to [facility] and spoke to Alejandra that patient [...] bed and continue this dose - rizatriptan (MAXALT-ENVELOPE MACHINE OPERATOR) 10 mg disintegrating tablet Take 1 tablet by mouth as needed for Migraine Headache (see administration instructions). AT ONSET OF HEADACHE. MAY REPEAT AFTER 2 HOURS. DO NOT EXCEED 30 MG PER DAY. Problem List As Of Date: 05/05/2021 (None) Encounter Status:Closed by TUCKER LARA on 05/06/21 [facility] 04-07-2021 CNPN Telephone (GSTCON) ----- SUSAN BRO ([id number]) 1995 F Date Time Provider Department 04/07/21 MARTHA WEBB GSTGERBER During your visit today, we recorded the following information about you: Tucker Bales Processing Engineer 04/07/2021 12:31 PM Signed NM called and they need the GES solid orde rplaced even though she has to use ensure, please sign order in this encounter Allergies As of Date: 04/07/2021 Noted Allergy Reaction PENICILLINS 03/10/2021 2 - Rash Date Reviewed: 04/01/2021 Reviewed by: Odette Agosto MD - Fully Assessed Reason for Visit: Orders [681] Visit Diagnosis:Nausea [R11.0] Order(s):NM GASTRIC EMPTYING SOLID [4403752] Order #: [id number] FUTURE Prescriptions as of 04/07/2021 Sig: AMITRIPTYLINE 10 MG TABLET Take 1 tab at bed x 1 week, t* RIZATRIPTAN 10 MG DISINTEGRAT* Take 1 tablet by mouth as nee* Problem List As Of Date: 04/07/2021 (None) Encounter Status:Closed by MARTHA WEBB on 04/07/21 [facility] 04-04-2021 CNPN Telephone (GSTCON) ----- SUSAN BRO ([id number]) 1995 F Date Time Provider Department 04/04/21 MARTHA WEBB During your visit today, we recorded the following information about you: Tucker Bales Processing Engineer 04/04/2021 1:40 PM Signed Patient called and is still waiting for you to place the order for her GES with ensure, she cant eat the eggs and toast Martha Webb MD 04/04/2021 4:48 PM Signed Let patient know I placed the order Tucker Bales Processing Engineer 04/05/2021 11:41 AM [address] you place [...] Visit Diagnosis:Nausea [R11.0] Order(s):NM GASTRIC EMPTYING LIQUID [[id number]] Order #: [id number] FUTURE Prescriptions as of 04/04/2021 Sig: AMITRIPTYLINE 10 MG TABLET Take 1 tab at bed x 1 week, t* RIZATRIPTAN 10 MG DISINTEGRAT* Take 1 tablet by mouth as nee* Problem List As Of Date: 04/04/2021 (None) Encounter Status:Closed by MARTHA WEBB on 04/05/21 [facility] CNOVon 04-01-2021 CNOV Office Visit (NHMNS2 ) ----- SUSAN BRO ([id number]) 1995 F Date Time Provider Department 04/01/21 8:00 AM BERT NEGRETE ALMNS2 During your visit today, we recorded the following information about you: Pulse Blood pressure Weight Height 72/minute 111/67 70.9 kg 1.626 m Last Period 02/23/21 Rigoberto Zimmer Hi 04/01/2021 7:54 AM Addendum Please start taking [...] at least 3 months. These include all xnou-uhy-ouslhxx medications, triptans, narcotics, and butalbital containing medications [...] There h (more content not included)... Normal [facility] [place] 03-22-2021 ALLISONN Telephone (PidefarmaCON) ----- SUSAN BRO ([id number]) 1995 F Date Time Provider Department 03/22/21 MARTHA WEBB During your visit today, we recorded the following information about you: Tucker Fournier 03/22/2021 2:28 PM Signed Received: Today MD Eusebia Banks Cig Clinical Pool; Tucker Fournier Let patient know esophagram was normal Next [...] Status:Closed by TUCKER LARA on 03/22/21 Normal [facility] XR ESOPHAGRAMon 03-17-2021 XR ESOPHAGRAM * * [...] symptoms. Other Findings: None. IMPRESSION: Normal esophagram. Road Cleaner: LUCITA Transcribe Date/Time: Mar 17 2021 11:15A Dictated by : CRISTÓBAL SALINAS DO This examination was interpreted and the report reviewed and electronically signed by: CRISTÓBAL SALINAS DO on Mar 17 2021 11:18AM EST [id number] [facility] 03-10-2021 OV Office Visit (GSTCON ) ----- SUSAN BRO ([id number]) 1995 F Date Time Provider Department 03/10/21 11:15 AM MARTHA WEBB During your visit today, we recorded the following information about you: Pulse Blood pressure Weight Height 69/minute 108/76 73 kg 1.626 m Martha Webb MD 03/10/2021 12:03 PM Signed This note was created using Personallyriter. Subjective Susan Bro is a 25 year [...] COMMENT: Un (more content not included)... [facility]GAST[facility] ----- SUSAN BRO ([id number]) 1995 F Date Time Provider Department 03/10/21 MARTHA WEBB [facility] During your visit today, we recorded the following information about you: Don Trevino Processing Engineer 03/10/2021 1:24 PM Signed Failed fax in [facility] from 03/10/2021 regarding this patient from Dr. Webb. Faxed manually to [phone]. Scanned fax confirmation/documents into [facility] Don Trevino Processing Engineer Allergies As of Date: 03/10/2021 Noted Allergy Reaction PENICILLINS 03/10/2021 2 - Rash Date Reviewed: 03/10/2021 Reviewed by: Martha Webb MD - Fully Assessed Reason for Visit: Electronic Communication [890] Problem List As Of Date: 03/10/2021 (None) Encounter Status:Closed by MOBASSERI TERRITORY SALES REPRESENTATIVEDON FOURNIER on 03/10/21 Normal [facility] CBC WITH AUTO DIFFERENTIALon 10-14-2020 Basophils (Bld) [#/Vol] 0.06 10*3/uL [facility] Basophils/100 WBC (Bld) 0.6 % [facility] Eosinophils (Bld) [#/Vol] 0.36 10*3/uL [facility] Eosinophils/100 WBC (Bld) 3.4 % [facility] Erythrocyte distribution width (RBC) [Entitic vol] 13.2 % 11.6 - 14.8 % [facility] Hematocrit (Bld) [Volume fraction] 43.2 % 36 - 46 % [facility] Hemoglobin (Bld) [Mass/Vol] 14.1 g/dL 12 - 16 g/dL [facility] Immature granulocytes (Bld) [#/Vol] 0.03 10*3/uL [facility] Immature granulocytes/100 WBC (Bld) 0.30 % [facility] Comment on above: The IG parameter is the percentage of metamyelocytes, myelocytes and promyelocytes. An immature granulocyte count (IG) of 1% or more suggests the possibility of infection, an IG count of 3% is very likely related to an infection. Interpretation and review of laboratory results Abnormal [facility] Lymphocytes (Bld) [#/Vol] 1.47 10*3/uL [facility] Lymphocytes/100 WBC (Bld) 13.8 % [facility] MCH (RBC) [Entitic mass] 29.6 pg 26 - 34 pg [facility] MCHC (RBC) [Mass/Vol] 32.6 g/dL 31 - 3 7 g/dL [facility] MCV (RBC) [Entitic vol] 90.6 fL 80 - 100 fL [facility] Monocytes (Bld) [#/Vol] 0.58 10*3/uL [facility] Monocytes/100 WBC (Bld) 5.5 % [facility] Neutrophils (Bld) [#/Vol] 8.12 10*3/uL High [facility] Neutrophils/100 WBC (Bld) 76.4 % [facility] Nucleated RBC (Bld) [#/Vol] 0.00 10*3/uL [facility] Nucleated RBC/100 WBC (Bld) [Ratio] 0.0 % [facility] Platelet mean volume (Bld) [Entitic vol] 10.3 fL 9.4 - 12.4 fL [facility] Platelets (Bld) [#/Vol] 251 10*3/uL [facility] RBC (Bld) [#/Vol] 4.77 10*6/uL [facility] WBC (Bld) [#/Vol] 10.62 10*3/uL [facility] COVID-19/INFLUENZA A,B [facility] 10-14-2020 COVID-19/INFLUENZA A,B MOLECULAR SARS-COV-2 (SANA): [...] at the following links: For Healthcare Providers: https://www.fda.gov/media/963164/download For Patients: https://www.fda.gov/media/268698/download Performed By: #### L [id number] #### [facility] [address] [place], [place] [address] Raffy Yadav M.D. [id number] COVID-19/Influenza A,B [facility] 10-14-2020 Influenza A Not Detected Not Detected [facility] Influenza B Not Detected Not Detected [facility] Interpretation and review of laboratory results Normal [facility] SARS-CoV-2 Not Detected Not Detected [facility] This test was perfor med under [...] the following links: For Healthcare Providers: https://www.fda.gov/media /197924/download For Patients: https://www.fda.gov/media /764610/download [facility] CT HEAD OR BRAIN WITHOUT CON [...] orbits and paranasal sinuses are grossly unremarkable. [facility] 1. No acute intracra nial hemorrhage, focal edema or mass effect. Workstation ID: [id number] [facility] Interface, Rad In Fu ji Speechq [...] edema or mass effect. Workstation ID: [id number] [facility] Chem 7on 10-14-2020 Anion gap [Moles/Vol] 8 mmol/L Low 10 - 2 0 mmol/L [facility] Chloride [Moles/Vol] 112 mmol/L High 98 - 10 8 mmol/L [facility] Creatinine [Mass/Vol] 0.78 mg/dL 0.40 - 1.10 [facility] GFR/1.73 sq M predicted among non-blacks MDRD (S/P/Bld) [Vol rate/Area] The eGFR should be used for monitoring renal function only and not for medication dosing. [facility] GFR/1.73 sq M.predicted CKD-EPI (S/P/Bld) [Vol rate/Area] 105 >=60 mL/min/1.73 m2 [facility] Glucose [Mass/Vol] 78 mg/dL 65 - 99 mg/dL [facility] HCO3 [Moles/Vol] 24 mmol/L 21 - 32 mmol/L [facility] Interpretation and review of laboratory results Abnormal [facility] Potassium [Moles/Vol] 4.5 mmol/L 3.5 - 5.1 mmol/L [facility] Comment on above: moderate hemolysis, result may be falsely increased. Sodium [Moles/Vol] 139 mmol/L 135 - 145 mmol/L [facility] Urea nitrogen [Mass/Vol] 5 mg/dL Low 8 - 25 mg/dL [facility] Urea nitrogen/Creatinine [Mass ratio] 6.4 mg/mg Low [facility] Otheron 10-14-2020 Extra Tube Hold for add-ons. [facility] Comment on above: Auto resulted. URINALYSISon 10-14-2020 Bacteria Auto Ql (U) None Seen None Se en /hpf [facility] Bilirubin Ql (U) Negative Negative [facility] Clarity Refractometry automated (U) Cloudy Abnormal Clear [facility] Color (U) Yellow Colorless, Yellow [facility] Epithelial cells.squamous Auto (Urine sed) [#/Area] 18 High [facility] Glucose Auto test strip (U) [Mass/Vol] Negative Negative mg/dL [facility] Hemoglobin Auto test strip Ql (U) Negative Negative [facility] Interpretation and review of laboratory results Abnormal [facility] Ketones (U) [Mass/Vol] Negative Negat juju mg/dL [facility] Leukocyte esterase Auto test strip Ql (U) Trace Abnormal Negative [facility] Mucus Auto (Urine sed) [#/Area] Many Abnormal None Seen, Rare /lpf [facility] Nitrite Auto test strip Ql (U) Negative Negative [facility] pH (U) 8.0 [pH] High [facility] Protein (U) [Mass/Vol] 30 Abnormal Negat juju mg/dL [facility] Comment on above: False positive resul ts may occur in urines with large amounts of hemoglobin, pH greater than 8.0, contrast medium, or disinfectants including ammonium compounds. RBC Auto (Urine sed) [#/Area] 3 [facility] Specific gravity (U) [Rel density] 1.028 High [facility] Urobilinogen (U) [Mass/Vol] 2.0 mg/dL Abnormal <2.0 [facility] WBC Auto (Urine sed) [#/Area] 3 [facility] Microscopic examinat ion is performed on all urinalysis samples and only positive findings are reported. The test for blood on the chemical analytic portion of urinalysis may also be positive due to hemoglobinuria and myoglobinuria and if red blood cells are present they are quantified by microscopic examination. [facility] hCG Urine, Qualitativeon HCG ( test) Ql (U) Negative Negative [facility] Interpretation and review of laboratory results Normal [facility] ABDOMEN, COMPLT ACUTE SERIES on 09-05-2020 ABDOMEN, COMPLT ACUTE SERIES Patient Name: SUSAN BRO STUDY: ABDOMEN, COMPLT ACUTE SERIES; 09/04/2020 11:54 pm INDICATION: constipation. COMPARISON: None. ACCESSION NUMBER(S): [id number] ORDERING CLINICIAN: BRAYDEN YANEZ TECHNIQUE: Abdomen supine [...] Electronically signed by: CANDACE AREVALO MD Normal [facility] BASIC METABOLIC PANELon 08-16 Anion gap [Moles/Vol] 12 mmol/L Normal 10 - 20 [facility] Comment on above: Performed By: #### B MP #### [address] [address] Calcium [Mass/Vol] 9.0 mg/dL Normal 8.6 - 10.3 [facility] Comment on above: Performed By: #### B MP #### [address] [address] Chloride [Moles/Vol] 105 mmol/L Normal 98 - 107 [facility] Comment on above: Performed By: #### B MP #### [address] [address] Creatinine [Mass/Vol] 0.90 mg/dL Normal 0.50 - 1.05 [facility] Comment on above: Performed By: #### B MP #### [address] [address] GFR- AM. >60 Normal >60 [facility] Comment on above: Result Comment: CALC ULATIONS OF ESTIMATED GFR ARE PERFORMED USING THE MDRD STUDY EQUATION FOR THE IDMS-TRACEABLE CREATININE METHODS. CLIN CHEM 2007;53:766-72 Performed By: #### B MP #### [address] [address] GFR-NON AM. >60 Normal >60 [facility] Comment on above: Performed By: #### B MP #### [address] [address] Glucose [Mass/Vol] 96 mg/dL Normal 74 - 99 [facility] Comment on above: Performed By: #### B MP #### [address] [address] HCO3 (Bld) [Moles/Vol] 25 mmol/L Normal 21 - 32 [facility] Comment on above: Performed By: #### B MP #### [address] [address] Potassium [Moles/Vol] 3.5 mmol/L Normal 3.5 - 5.3 [facility] Comment on above: Performed By: #### B MP #### [address] [address] Sodium [Moles/Vol] 138 mmol/L Normal 136 - 145 [facility] Comment on above: Performed By: #### B MP #### [address] [address] Urea nitrogen [Mass/Vol] 7 mg/dL Normal 6 - 23 [facility] Comment on above: Performed By: #### B MP #### [address] [address] CBCon 09-05-2020 Erythrocyte distribution width (RBC) [Ratio] 13.2 % Normal 11.5 - 14.5 [facility] Comment on above: Performed By: #### C BC #### [address] [address] Hematocrit (Bld) [Volume fraction] 42.5 % Normal 36.0 - 46.0 [facility] Comment on above: Performed By: #### C BC #### [address] [address] Hemoglobin (Bld) [Mass/Vol] 14.5 g/dL Normal 12.0 - 16.0 [facility] Comment on above: Performed By: #### C BC #### [address] [address] MCHC (RBC) [Mass/Vol] 34.2 g/dL Normal 32.0 - 36.0 [facility] Comment on above: Performed By: #### C BC #### [address] [address] MCV (RBC) [Entitic vol] 88 fL Normal 80 - 100 [facility] Comment on above: Performed By: #### C BC #### [address] [address] Platelets (Bld) [#/Vol] 272 10*3/uL Normal 150 - 450 [facility] Comment on above: Performed By: #### C BC #### [address] [address] RBC (Bld) [#/Vol] 4.86 x10E12/L Normal 4.00 - 5.20 [facility] Comment on above: Performed By: #### C BC #### [address] [address] WBC (Bld) [#/Vol] 12.5 10*3/uL High 4.4 - 11.3 [facility] Comment on above: Performed By: #### C BC #### [address] [address] HCG,URINEon 09-05-2020 Beta HCG ( test) Ql (U) Negative Normal Negative [facility] Comment on above: Performed By: #### H CGU #### [address] [address] Provider Note - ED v2on 08-16 Provider [...] SIGNIFICANT EVENTS: Past Medical History Description:H Pilory 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: Is : no(1) Is : no(1) REVIEW [...] Referenced From Triage - ED 04-Sep-2020 22:51 [facility] Risk Screen - Adult Emergenc yon 09-05-2020 Risk Screen - Adult Emergency Preferred Language: Preferred Language: Preferred Language for Discussing Health Care (patient/designee)Greek Advanced Directives: Advance Directive/DNRno Family Violence Adult: [...] an injured patient at a Trauma Center [place]/[place]/ [place]): no Electronic Signatures: Nette Dorantes (SUPV) (Signed 04-Sep-2020 23:08) Authored: Preferred Language, Advanced Directives, Family Violence Adult, Learning Assessment (Patient), Learning Assessment (Other Learner), Pressure Injury/TB/Substance, Pressure Injury, CAGE Last Updated: 04-Sep-2020 23:08 by Nette Dorantes (SUPV) [facility] Triage - EDon 09-05-2020 Triage - ED [...] BMI (kg/m2): 38.627 Calculated BSA (m2) 2.15 [place] Coma Scale: Best Eye Response: (E4) spontaneous Best Motor Response: (M6) obeys commands Best Verbal Response: (V5) oriented [place] Score: 15 Cough lasting greater than 3 weeks: no Patient immunocompromised related to: N/A Allergies: yes Last menstrual period: 05-Aug-2020 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 History: (states no form of BC) Patient [...] 04-Sep-2020 23:01 by Nette Dorantes (SUPV) Normal [facility] URINALYSISon 09-05-2020 Appearance (U) CLEAR Normal CLEAR [facility] Comment on above: Performed By: #### U A #### [place] [address] Bilirubin (U) [Mass/Vol] Negative Normal NEGATIVE [facility] Comment on above: Performed By: #### U A #### [place] [address] BLOOD Negative Normal NEGATIVE [facility] Comment on above: Performed By: #### U A #### [place] [id number] Color (U) Yellow Normal STRAW,YELLO W [facility] Comment on above: Performed By: #### U A #### [place] [id number] Glucose [Mass/Vol] Negative Normal NEGATIVE [facility] Comment on above: Performed By: #### U A #### [place] [id number] Ketones Ql (U) Negative Normal NEGATIVE [facility] Comment on above: Performed By: #### U A #### [address] [address] Leukocyte esterase Test strip Ql (U) Negative Normal NEGATIVE [facility] Comment on above: Performed By: #### U A #### [address] [address] Nitrite Ql (U) Negative Normal NEGATIVE [facility] Comment on above: Performed By: #### U A #### [address] [address] pH (Bld) 5.0 Normal 5.0 - 8.0 [facility] Comment on above: Performed By: #### U A #### [address] [address] Protein (U) [Mass/Vol] Negative Normal NEGATIVE [facility] Comment on above: Performed By: #### U A #### [address] [address] Specific gravity (U) [Rel density] 1.015 Normal 1.005 - 1.035 [facility] Comment on above: Performed By: #### U A #### [address] [address] Urobilinogen Qn (U) <2.0 Normal 0.0 - 1.9 [facility] Comment on above: Performed By: #### U A #### [address] [address] , Urineon 0 Beta HCG ( test) Ql (U) Negative NEGATIVE [facility] [place] [place] Comment on above: Specimens with hCG l evels near the threshold of the test (25 mIU/mL) may give a negative or indeterminate result. In such cases, another test should be performed with a new specimen in 48-72 hours. If early is suspected clinically in this setting, correlation with quantitative serum b-hCG level is suggested. [facility] has confirmed the use of plasma for this test. This has not been cleared or approved by the U.S. Food and Drug Administration. The FDA has determined that such clearance is not necessary. XR ELBOW RIGHT (2 VIEWS)on 1 Ren, pn Incoming Radiant Results From [facility] - 08/09/2020 8:04 PM EDT EXAMINATION: TWO XRAY VIEWS OF THE RIGHT ELBOW 08/09/2020 7:50 pm COMPARISON: None. HISTORY: ORDERING SYSTEM PROVIDED HISTORY: Fall TECHNOLOGIST PROVIDED HISTORY: Fall FINDINGS: There is no elbow effusion. There is no acute fracture or dislocation. Alignment is normal. IMPRESSION: No acute abnormality. CarefxBING EXAMINATION: TWO XRA Y VIEWS OF THE RIGHT ELBOW 08/09/2020 7:50 pm COMPARISON: None. HISTORY: ORDERING SYSTEM PROVIDED HISTORY: Fall TECHNOLOGIST PROVIDED HISTORY: Fall FINDINGS: There is no elbow effusion. There is no acute fracture or dislocation. Alignment is normal. Symform BING No acute abnormality. [facility] [address] BING XR FEMUR RIGHT (MIN 2 VIEWS) on 08-09-2020 No acute osseous abnormality. Symform BING Ren, pn Incoming Radiant Results From [employer] - 08/09/2020 8:02 PM EDT EXAMINATION: 2 [...] tissue abnormality. IMPRESSION: No acute osseous abnormality. Symform BING EXAMINATION: 2 XRAY VIEWS OF THE [...] osseous lesion. No focal soft tissue abnormality. Symform BING XR KNEE RIGHT (3 VIEWS)on EXAMINATION: THREE X RAY VIEWS OF THE RIGHT KNEE 08/09/2020 7:50 pm COMPARISON: None. HISTORY: ORDERING SYSTEM PROVIDED HISTORY: Fall TECHNOLOGIST PROVIDED HISTORY: Fall FINDINGS: No acute fracture. Joint spaces are preserved. No joint effusion. [employer] Ren, Mhpn Incoming Radiant Results From [employer] - 08/09/2020 8:04 PM EDT EXAMINATION: THREE XRAY VIEWS OF THE RIGHT KNEE 08/09/2020 7:50 pm COMPARISON: None. HISTORY: ORDERING SYSTEM PROVIDED HISTORY: Fall TECHNOLOGIST PROVIDED HISTORY: Fall FINDINGS: No acute fracture. Joint spaces are preserved. No joint effusion. IMPRESSION: Negative right knee radiographs[facility] [place] Negative right knee radiographs. [facility] SHOULDER RIGHT (MIN 2 VIE WS)on 08-09-2020 Ren, Mhpn Incoming Radiant Results From [employer] - 08/09/2020 8:03 PM EDT EXAMINATION: THREE [...] IMPRESSION: No acute abnormality. Inferior clavicular spur [facility] [employer] No acute abnormality . Inferior clavicular spur [facility] [employer] [place] EXAMINATION: THREE X RAY VIEWS OF THE RIGHT SHOULDER 08/09/2020 7:50 pm COMPARISON: None. HISTORY: ORDERING SYSTEM PROVIDED HISTORY: Fall TECHNOLOGIST PROVIDED HISTORY: Fall FINDINGS: Spurring inferior aspect of the mid clavicle. Glenohumeral joint is normally aligned. No evidence of acute fracture or dislocation. No abnormal periarticular calcifications. The AC joint is unremarkable in appearance. Visualized lung is unremarkable. [facility] [employer] [place] CT CERVICAL SPINE WO IVCONon 07-23-2017 CT CERVICAL SPINE WO IVCON * * *Final Report* * *DATE OF EXAM: Jul 23 2017 1:33PM [facility] 0505 - CT CERVICAL SPINE WO IVCON [...] MCCLURE MD on Jul 23 2017 1:45PM [id number] [facility] ED NOTEon 07-23-2017 ED NOTE HNO ID: [id number] thor: Dinesh HollyRnGILDARDO Rileyervice: Emergency MedicineAuthor Type: Registered NurseType: ED NotesFiled: 07/23/2017 3:54 PMNote Text:Discharge instructions explained. Instructed to return for any worseningsymptoms or concerns. Pt verbalizes understanding of. [facility] ED NOTE HNO ID: [id number] Author: Dav Sheehan (Rn) MAHESH Yin Service: Emergency Medicine Author Type: Registered Nurse Type: ED Notes Filed: 07/23/2017 3:36 PM Note Text: Patient returned to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 still 7/10. dr jung on unit & at bedside 08-18-2022 09:09-0400 Hourly Rounding Luis Carlos Jung [facility] Comment on above: Result Comment: pt sitting up in bed wit h breakfast tray, visitor at bedside 08-18-2022 07:15-0400 Blood Pressure Location Luis Carlos Jung [facility] 08-18-2022 07:15-0400 Diastolic blood pressure 56 mm[Hg] Luis Carlos Jung [facility] 08-18-2022 07:15-0400 Heart rate 69 /min Luis Carlos Jung [facility] 08-18-2022 07:15-0400 Mean blood pressure 74 mm[Hg] Luis Carlos Jung [facility] 08-18-2022 07:15-0400 Respiratory rate 16 /min Luis Carlos Jung [facility] 08-18-2022 07:15-0400 Systolic blood pressure 111 mm[Hg] Luis Carlos Jung [facility] 08-18-2022 05:58-0400 Blood Pressure Location Luis Carlos Jung [facility] 08-18-2022 05:58-0400 Diastolic blood pressure 59 mm[Hg] Luis Carlos Jung [facility] 08-18-2022 05:58-0400 Heart rate 67 /min Luis Carlos Jung [facility] 08-18-2022 05:58-0400 Mean blood pressure 77 mm[Hg] Luis Carlos Jung [facility] 08-18-2022 05:58-0400 Respiratory rate 16 /min Luis Carlos Jung [facility] 08-18-2022 05:58-0400 Systolic blood pressure 113 mm[Hg] Luis Carlos Jung [facility] 08-18-2022 04:06-0400 Blood Pressure Location Luis Carlos Jung [facility] 08-18-2022 04:06-0400 Body temperature 98.06 [degF] Luis Carlos Jung [facility] 08-18-2022 04:06-0400 Diastolic blood pressure 65 mm[Hg] Luis Carlos Jung [facility] 08-18-2022 04:06-0400 Heart rate 70 /min Luis Carlos Jung [facility] 08-18-2022 04:06-0400 Mean blood pressure 79 mm[Hg] Luis Carlos Jung [facility] 08-18-2022 04:06-0400 Respiratory rate 16 /min Luis Carlos Jung [facility] 08-18-2022 04:06-0400 Systolic blood pressure 107 mm[Hg] Luis Carlos Jung [facility] 08-13-2022 20:04-0400 [facility] Comment on above: Result Comment: Patient discharged off u nit. Discharge instructions were reviewed. Pt walks off unit without any notable signs or symtpoms of distress. 08-13-2022 19:45-0400 Hourly Rounding Luis Carlos Jung [facility] 08-13-2022 19:45-0400 [facility] Comment on above: Result Comment: Patient sitting in bed. BPP results reviewed with patient. Pt denied any additional questions. Call light within reach. 08-13-2022 18:12-0400 Heart rate 88 /min Luis Carlos Jung [facility] 08-13-2022 18:12-0400 Nursing Progress Note Reason Other: Pt updated on orders received from . [facility] Luis Carlos Jung [facility] 08-13-2022 18:12-0400 SaO2% (BldA) [Mass fraction] 99 % Luis Carlos Jung [facility] 08-13-2022 17:33-0400 Body temperature 97.88 [degF] Luis Carlos Jung [facility] 08-13-2022 17:33-0400 Diastolic blood pressure 72 mm[Hg] Luis Carlos Jung [facility] 08-13-2022 17:33-0400 Mean blood pressure 88 mm[Hg] Luis Carlos Jung [facility] 08-13-2022 17:33-0400 Respiratory rate 18 /min Luis Carlos Jung [facility] 08-13-2022 17:33-0400 Systolic blood pressure 121 mm[Hg] Luis Carlos Jung [facility] 07-26-2022 10:22-0400 Hourly Rounding Luis Carlos Jung [facility] Comment on above: Result Comment: discharge instructions p rovided and pt signs discharge consent with RN witness. pt preparing for discharge, belly band placed on pt. RN offers wheelchair exit for discharge and pt declines and wants to walk down on own. 07-26-2022 10:22-0400 Promise to Return Luis Carlos Jung [facility] 07-26-2022 10:00-0400 Hourly Rounding Luis Carlos Jung [facility] 07-26-2022 10:00-0400 Promise to Return Luis Carlos Jung [facility] 07-26-2022 09:15-0400 Blood Pressure Location Luis Carlos Jung [facility] 07-26-2022 09:15-0400 Body temperature 97.7 [degF] Luis Carlos Jung [facility] 07-26-2022 09:15-0400 Diastolic blood pressure 62 mm[Hg] Luis Carlos Jung [facility] 07-26-2022 09:15-0400 Heart rate 70 /min Luis Carlos Jung [facility] 07-26-2022 09:15-0400 Hourly Rounding Luis Carlos Jung [facility] 07-26-2022 09:15-0400 Mean blood pressure 74 mm[Hg] Luis Carlos Jung [facility] 07-26-2022 09:15-0400 Respiratory rate 18 /min Luis Carlos Jung [facility] 07-26-2022 09:15-0400 Systolic blood pressure 97 mm[Hg] Luis Carlos Jung [facility] 07-26-2022 09:00-0400 Promise to Return Luis Carlos Jung [facility] 07-26-2022 08:14-0400 Body temperature 98.06 [degF] Luis Carlos Jung [facility] 07-26-2022 08:14-0400 Diastolic blood pressure 66 mm[Hg] Luis Carlos Jung [facility] 07-26-2022 08:14-0400 Heart rate 81 /min Luis Carlos Jung [facility] 07-26-2022 08:14-0400 Mean blood pressure 80 mm[Hg] Luis Carlos Jung [facility] 07-26-2022 08:14-0400 Respiratory rate 18 /min Luis Carlos Jung [facility] 07-26-2022 08:14-0400 Systolic blood pressure 109 mm[Hg] Luis Carlos Jung [facility] 07-17-2022 09:07-0400 Body temperature 97.88 [degF] Ko Dumas [facility] 07-17-2022 09:07-0400 Diastolic blood pressure 74 mm[Hg] Ko Dumas [facility] 07-17-2022 09:07-0400 Heart rate 85 /min Ko Dumas [facility] 07-17-2022 09:07-0400 Respiratory rate 16 /min Ko Dumas [facility] 07-17-2022 09:07-0400 SaO2% (BldA) [Mass fraction] 100 % Ko Dumas [facility] 07-17-2022 09:07-0400 Systolic blood pressure 117 mm[Hg] Ko Dumas [facility] 06-26-2022 21:38-0400 Blood Pressure Location Luis Carlos Jung [facility] 06-26-2022 21:38-0400 Diastolic blood pressure 61 mm[Hg] Luis Carlos Jung [facility] 06-26-2022 21:38-0400 Heart rate 83 /min Luis Carlos Jung [facility] 06-26-2022 21:38-0400 Hourly Rounding Luis Carlos Jung [facility] Comment on above: Result Comment: discharged ambulatory to pov 06-26-2022 21:38-0400 Mean blood pressure 75 mm[Hg] Luis Carlos Jung [facility] 06-26-2022 21:38-0400 Respiratory rate 16 /min Luis Carlos Jung [facility] 06-26-2022 21:38-0400 Systolic blood pressure 102 mm[Hg] Luis Carlos Jung [facility] 06-26-2022 21:15-0400 Blood Pressure Location Luis Carlos Jung [facility] 06-26-2022 21:15-0400 Diastolic blood pressure 64 mm[Hg] Luis Carlos Jung [facility] 06-26-2022 21:15-0400 Heart rate 74 /min Luis Carlos Jung [facility] 06-26-2022 21:15-0400 Hourly Rounding Luis Carlos Jung [facility] 06-26-2022 21:15-0400 Mean blood pressure 78 mm[Hg] Luis Carlos Jung [facility] 06-26-2022 21:15-0400 Respiratory rate 16 /min Luis Carlos Jung [facility] 06-26-2022 21:15-0400 Systolic blood pressure 106 mm[Hg] Luis Carlos Jung [facility] 06-26-2022 21:05-0400 Body temperature 97.88 [degF] Luis Carlos Jung [facility] 06-26-2022 21:05-0400 Respiratory rate 18 /min Luis Carlos Jung [facility] 06-26-2022 21:00-0400 Hourly Rounding Luis Carlos Jung [facility] Comment on above: Result Comment: ice water given 06-19-2022 01:30-0400 Hourly Rounding Luis Carlos Jung [facility] Comment on above: Result Comment: updated on plan of care after speaking to dr jung. verb understanding and all d/c instructions provided. denies further needs/concerns. ambulates off unit without any further questions. 06-19-2022 01:00-0400 Hourly Rounding Luis Carlos Jung [facility] Comment on above: Result Comment: rests in bed on phone. d enies any needs. denies any pain at this time or any pain or cramping since arrival. call light within reach 06-19-2022 00:15-0400 Hourly Rounding Luis Carlos Jung [facility] 06-18-2022 23:54-0400 Body temperature 97.88 [degF] Luis Carlos Jung [facility] 06-18-2022 23:54-0400 Diastolic blood pressure 65 mm[Hg] Luis Carlos Jung [facility] 06-18-2022 23:54-0400 Heart rate 76 /min Luis Carlos Jung [facility] 06-18-2022 23:54-0400 Mean blood pressure 81 mm[Hg] Luis Carlos Jung [facility] 06-18-2022 23:54-0400 Respiratory rate 18 /min Luis Carlos Jung [facility] 06-18-2022 23:54-0400 Systolic blood pressure 112 mm[Hg] Luis Carlos Jung [facility] 06-18-2022 23:45-0400 Blood Pressure Location Luis Carlos Jung [facility] 05-01-2022 17:45-0400 Hourly Rounding Luis Carlos Jung [facility] Comment on above: Result Comment: reviewed disch inst and meds to take states understanding 05-01-2022 17:30-0400 Hourly Rounding Luis Carlos Jung [facility] 05-01-2022 17:23-0400 Body temperature 98.06 [degF] Luis Carlos Jung [facility] 05-01-2022 17:23-0400 Diastolic blood pressure 57 mm[Hg] Luis Carlos Jung [facility] 05-01-2022 17:23-0400 Heart rate 83 /min Luis Carlos Jung [facility] 05-01-2022 17:23-0400 Mean blood pressure 71 mm[Hg] Luis Carlos Jung [facility] 05-01-2022 17:23-0400 Respiratory rate 16 /min Luis Carlos Jung [facility] 05-01-2022 17:23-0400 Systolic blood pressure 99 mm[Hg] Luis Carlos Jung [facility] 05-01-2022 17:15-0400 Blood Pressure Location Luis Carlos Jung [facility] 05-01-2022 17:15-0400 Hourly Rounding Luis Carlos Jung [facility] 04-02-2022 13:30-0400 Hourly Rounding Luis Carlos Jung [facility] Comment on above: Result Comment: pt given discharge instr uctions at this time to follow up with fabiana sunday or states understanding to call office tomorrow for appointment 04-02-2022 12:30-0400 Hourly Rounding Luis Carlos Jung [facility] Comment on above: Result Comment: pt returns to bed from [facility] at this time denies discomfort at this time 04-02-2022 11:30-0400 Hourly Rounding Luis Carlos Jung [facility] Comment on above: Result Comment: pt sitting in bed at thi s time denies needs or discomfort 04-02-2022 06:28-0400 Body temperature 99.68 [degF] Luis Carlos Jung [facility] 04-02-2022 06:28-0400 Diastolic blood pressure 68 mm[Hg] Luis Carlos Jung [facility] 04-02-2022 06:28-0400 Heart rate 89 /min Luis Carlos Jung [facility] 04-02-2022 06:28-0400 Heart rate 86 /min Luis Carlos Jung [facility] 04-02-2022 06:28-0400 Mean blood pressure 83 mm[Hg] Luis Carlos Jung [facility] 04-02-2022 06:28-0400 Respiratory rate 20 /min Luis Carlos Jung [facility] 04-02-2022 06:28-0400 SaO2% (BldA) [Mass fraction] 98 % Luis Carlos Jung [facility] 04-02-2022 06:28-0400 Systolic blood pressure 114 mm[Hg] Luis Carlos Jung [facility] 03-23-2022 21:08-0400 Hourly Rounding Luis Carlos Jung [facility] Comment on above: Result Comment: Patient ambulatory off u nit. No signs or symptoms of distress noted. 03-23-2022 20:35-0400 Hourly Rounding Luis Carlos Jung [facility] Comment on above: Result Comment: Patient updated on plan of care. Verbalizes understanding. Call light in reach. 03-23-2022 19:49-0400 Blood Pressure Location Luis Carlos Jung [facility] 03-23-2022 19:49-0400 Body temperature 98.78 [degF] Luis Carlos Jung [facility] 03-23-2022 19:49-0400 Diastolic blood pressure 66 mm[Hg] Luis Carlos Jung [facility] 03-23-2022 19:49-0400 Heart rate 69 /min Luis Carlos Jung [facility] 03-23-2022 19:49-0400 Hourly Rounding Luis Carlos Jung [facility] Comment on above: Result Comment: Patient arrives on unit. 03-23-2022 19:49-0400 Mean blood pressure 79 mm[Hg] Luis Carlos Jung [facility] 03-23-2022 19:49-0400 Respiratory rate 16 /min Luis Carlos Jung [facility] 03-23-2022 19:49-0400 Systolic blood pressure 106 mm[Hg] Luis Carlos Jung [facility] 10-14-2020 13:15-0500 Pulse (Heart Rate) 74 /min [facility] 10-14-2020 13:15-0500 Pulse Oximetry 98 % [facility] 10-14-2020 13:15-0500 Respiratory Rate 16 /min [facility] 10-14-2020 13:00-0500 BP Diastolic 74 mm[Hg] [facility] 10-14-2020 13:00-0500 BP Systolic 123 mm[Hg] [facility] 10-14-2020 10:13-0500 BMI (Body Mass Index) 34.33 kg/m2 [facility] 10-14-2020 10:13-0500 Body Temperature 97.81 [degF] [facility] 10-14-2020 10:13-0500 Body weight 90.72 kg [facility] 10-14-2020 10:13-0500 Height 162.6 cm [facility] 08-09-2020 20:33-0400 BP Diastolic 81 mm[Hg] [facility] [place] 08-09-2020 20:33-0400 BP Systolic 122 mm[Hg] [facility] [place] 08-09-2020 20:33-0400 Pulse (Heart Rate) 78 /min [facility] [place] 08-09-2020 20:33-0400 Respiratory Rate 16 /min [facility] [place] 08-09-2020 19:03-0400 BMI (Body Mass Index) 39.48 kg/m2 Bakari Valente [facility] 08-09-2020 19:03-0400 Body Temperature 98.29 [degF] Bakari Valente [facility] 08-09-2020 19:03-0400 Body weight 104.33 kg Bakari Valente [facility] 08-09-2020 19:03-0400 Height 162.6 cm [facility] 08-09-2020 19:03-0400 Pulse Oximetry 98 % Bakari [facility] Encounters Encounter Date Encounter Type Care Provider Facility Start: 11-27-2023 Bamboo flowsheet Rashaun Perry D O Work Phone: [facility] Start: 11-27-2023 Bamboo flowsheet Rashaun Perry D O Work Phone: [facility] Start: 11-27-2023 Clinisync Result Encounter Rashaun Perry DO Work Phone: [facility] External Department Unsolicited Start: 11-27-2023 End: 11-27-2023 ambulatory RASHAUN PERRY Not Available Start: 11-27-2023 End: 11-27-2023 Office outpatient visit 15 minutes Rashaun Perry DO Work Phone: [facility] Comment on above: Third trimester preg anh; Hypothyroidism (acquired) ([facility] Start: 11-20-2023 End: 11-20-2023 ambulatory RASHAUN PERRY Not Available Start: 11-20-2023 End: 11-20-2023 Office outpatient visit 15 minutes Rashaun Perry DO Work Phone: [facility] Comment on above: Third trimester preg anh Start: 11-06-2023 End: 11-06-2023 ambulatory RASHAUN PERRY Not Available Start: 11-05-2023 End: 11-30-2023 Pre-admission assessment Rashaun R PERRY [facility] Start: 11-04-2023 End: 11-04-2023 OB Triage Rashaun AMADOR [facility] Start: 10-31-2023 End: 10-31-2023 ambulatory RASHAUN RODRIGUEZO Not Available Start: 10-18-2023 End: 10-18-2023 ambulatory DODIE MILLER Not Available Start: 10-03-2023 End: 10-03-2023 ambulatory DODIE MILLER Not Available Start: 09-12-2023 End: 09-12-2023 ambulatory RASHAUN RODRIGUEZO Not Available Start: 08-23-2023 End: 08-23-2023 Lab Drop off ZORAN MYRICK [facility] Start: 08-23-2023 End: 08-24-2023 ambulatory RN DELIVERY ZORAN MYRICK Facility:[facility] Start: 08-19-2023 End: 09-14-2023 Pre-admission assessment Julia Haywood [facility] Start: 08-18-2023 End: 08-18-2023 ambulatory DO Julia Haywood Facility:[facility] Start: 08-18-2023 End: 08-18-2023 OB Triage Julia Haywood [facility] Start: 07-25-2023 End: 07-25-2023 Emergency department patient visit Kristian Guillermo Facility:[facility] [facility] Start: 07-25-2023 End: 07-25-2023 Emergency department patient visit Kristian Guillermo [facility] Start: 06-28-2023 End: 06-29-2023 ambulatory Roverto Guthriesic Facility:[facility] [place] Start: 06-28-2023 End: 06-28-2023 Patient encounter procedure Roverto Guthriesic [facility] Start: 06-14-2023 End: 06-14-2023 Emergency department patient visit Kristian Guillermo Facility:[facility] [place] Start: 06-14-2023 End: 06-14-2023 Emergency department patient visit Kristian Guillermo [facility] Start: 06-12-2023 End: 06-13-2023 ambulatory Luis Carlos Rochelle Jung Facility:[facility] Start: 06-12-2023 End: 06-12-2023 Patient encounter procedure Luis Carlos Byrd Fabiana [facility] Start: 05-21-2023 End: 05-22-2023 Emergency department patient visit DO Miladysnadia Christopher Vudarrintoña Facility:[facility] Start: 05-21-2023 End: 05-21-2023 Emergency department patient visit Miladysnadia Christopher Rodriguez [facility] Start: 04-30-2023 End: 05-01-2023 ambulatory Luis Carlos Jung Facility:[facility] Start: 04-30-2023 End: 04-30-2023 Lab Drop off Luis Carlos Rochelle Jung [facility] Start: 04-30-2023 End: 05-01-2023 ambulatory Luis Carlos Rochelle Jung Facility:[facility] Start: 04-30-2023 End: 04-30-2023 Patient encounter procedure Luis Carlos Rochelle Jung [facility] Start: 04-26-2023 End: 04-26-2023 Emergency department patient visit Laura Leonfelipe Facility:[facility] [place] Start: 04-26-2023 End: 04-26-2023 Emergency department patient visit Laura Araceli Bert [facility] Start: 01-31-2023 End: 01-31-2023 Emergency department patient visit Kristian Guillermo Facility:[facility] Start: 01-31-2023 End: 01-31-2023 Emergency department patient visit Kristian Guillermo [facility] Start: 09-24-2022 End: 09-27-2022 Evaluation and management of inpatient Luis Carlos Jung Facility:[facility] Start: 09-22-2022 End: 09-22-2022 ambulatory Luis Carlos Jung Facility:[facility] [place] Start: 09-22-2022 End: 09-22-2022 OB Triage Luis Carlos Jung [facility] Start: 09-20-2022 End: 09-20-2022 ambulatory Luis Carlos Jung Facility:[facility] Start: 09-20-2022 End: 09-20-2022 OB Triage Luis Carlos Jung [facility] Start: 09-19-2022 End: 09-19-2022 ambulatory Jj MIKE Facility:[facility] Start: 09-19-2022 End: 09-19-2022 OB Triage Jj MIKE [facility] Start: 09-14-2022 End: 09-14-2022 ambulatory Luis Carlos Jung Facility:[facility] [place] Start: 09-14-2022 Emergency department patient visit DO Gopi Rodriguez Facility:[facility] [place] Start: 09-14-2022 End: 09-14-2022 OB Triage Luis Carlos Jung [facility] Start: 09-12-2022 End: 09-12-2022 ambulatory Luis Carlos Jung Facility:[facility] [place] Start: 09-12-2022 End: 09-12-2022 OB Triage Luis Carlos Jung [facility] Start: 09-08-2022 End: 09-08-2022 ambulatory Luis Carlos Jung Facility:[facility] [place] Start: 09-08-2022 End: 09-08-2022 OB Triage Luis Carlos Rochelle Jung [facility] Start: 09-06-2022 End: 12-06-2022 ambulatory Luis Carlos Rochelle Jung Facility:[facility] Start: 09-05-2022 End: 09-06-2022 Emergency department patient visit DO Gopi Rodriguez Facility:[facility] [place] Start: 09-05-2022 End: 09-05-2022 Emergency department patient visit Miladysnadia Christopher Rodriguez [facility] Start: 09-05-2022 End: 12-05-2022 Patient encounter procedure SELF REFERRAL [facility] Start: 09-04-2022 End: 09-05-2022 ambulatory Luis Carlos Rochelle Jung Facility:[facility] [place] Start: 09-04-2022 End: 09-04-2022 Lab Drop off Luis Carlos Byrd Fabiana [facility] Start: 08-30-2022 End: 08-31-2022 ambulatory Luis Carlos Rochelle Jung Facility:[facility] Start: 08-30-2022 End: 08-31-2022 OB Triage Luis Carlos Byrd Fabiana [facility] Start: 08-22-2022 End: 08-22-2022 OB Triage Luis Carlos Byrd Fabiana [facility] Start: 08-18-2022 End: 08-18-2022 OB Triage Luis Carlos Montesinosten [facility] Start: 08-13-2022 End: 08-13-2022 OB Triage Luis Carlos Jung [facility] Start: 07-26-2022 End: 07-26-2022 OB Triage Luis Carlos Jung [facility] Start: 07-17-2022 End: 07-17-2022 Emergency department patient visit Ko Dumas [facility] Start: 06-28-2022 End: 06-28-2022 Patient encounter procedure Luis Carlos Jung [facility] Start: 06-26-2022 End: 06-26-2022 OB Triage Luis Carlos Jung [facility] Start: 06-20-2022 End: 07-15-2022 Pre-admission assessment Luis Carlos Jung [facility] Start: 06-18-2022 End: 06-19-2022 OB Triage Luis Carlos Jung [facility] Start: 05-02-2022 End: 06-15-2022 Pre-admission assessment THANG MILLAN [facility] Start: 05-01-2022 End: 05-01-2022 OB Triage Luis Carlos Jung [facility] Start: 04-02-2022 End: 04-02-2022 OB Triage Luis Carlos Jung [facility] Start: 03-23-2022 End: 03-23-2022 OB Triage Luis Carlos Jung [facility] Start: 03-16-2022 End: 03-16-2022 Patient encounter procedure Luis Carlos Jung [facility] Start: 02-15-2022 End: 02-15-2022 Lab Drop off Luis Carlos Jung [facility] Start: 02-23-2021 End: 02-23-2021 Patient encounter procedure Martha Webb MD Work Phone: [facility] Start: 02-23-2021 Results Only Martha Webb MD Work Phone: Gastroenterology Start: 10-14-2020 End: 10-14-2020 Emergency department patient visit PHYSICIAN [facility] Start: 10-14-2020 End: 10-14-2020 Emergency department patient visit Regine Chow Work Phone: [facility] Comment on above: Vertigo (Primary Dx) Start: 08-09-2020 End: 08-09-2020 Emergency department patient visit BAKARI A [facility] Start: 08-09-2020 End: 08-09-2020 Emergency department [facility] Work Phone: [facility] ED Comment on above: Contusion of right k nee, initial encounter (Primary Dx); Contusion of multiple sites of right shoulder and upper arm, initial encounter Start: 07-23-2017 End: 07-23-2017 Emergency department patient visit NKECHI TORRES [facility] Procedures Date Procedure Procedure Detail [...] 10-14-2020 CT of head without contrast Susan Margarita Madhavclive Work Phone: Start: 10-14-2020 LIGHT BLUE TOP Regine Chow Work Phone: Start: 10-14-2020 LIGHT GREEN TOP Regine Chow Work Phone: Start: 10-14-2020 Basic metabolic 1998 panel - Serum or Plasma Susan Charltonkim Griffiths Work Phone: Start: 10-14-2020 Complete blood count with white cell differential, automated Susan Margaritakim Griffiths Work Phone: Start: 10-14-2020 Complete blood count with white cell differential, manual Susan Margarita Casperd Work Phone: Start: 10-14-2020 COVID-19/INFLUENZA A,B MOLECULAR Susan Elkinsa Madhavclive Work Phone: Start: 10-14-2020 Choriogonadotropin ( test) [...] 05-12-2028 Tetanus vaccination Tetanus: Every 1 0yrs [facility] Start: 04-30-2028 Screening for malign ant neoplasm of cervix [facility] Start: 01-22-2024 End: 01-22-2024 Patient encounter procedure 01/22/2024 8:40 AM EDT Consult [facility] [address] [facility] [place] [id number] Rashaun Amador, DO [address] [place] [address] [facility] Start: 12-04-2023 End: 12-04-2023 Patient encounter procedure 12/04/2023 9:00 AM EST Routine [facility] [address] [facility] [place] [id number] Rashaun Amador, DO [address] [place] [address] [facility] Start: 11-27-2023 End: 11-27-2024 Strep B DNA probe, amplification Strep B DNA probe, amplification Lab Routine Third trimester Expected: 11/27/2023 (Approximate), Expires: 11/27/2024 [facility] Work Phone: Comment on above: Expected: 11/27/2023 (Approximate), Expires: 11/27/2024 Start: 11-27-2023 End: 11-27-2023 Patient encounter procedure [facility] Comment on above: Arrived Start: 11-21-2023 End: 11-21-2023 Professional / ancillary services management 11/21/2023 8:30 AM EST Ancillary Procedure [facility] [address] [place] [address] [facility] Start: 06-15-2021 Influenza vaccination INFLUENZ A (Season Ended) [facility] Start: 06-15-2020 Influenza vaccination Flu vaccine (# 1) [place], [place] Start: 2014 PAP TESTING PAP TESTING [facility] Start: 2014 Screening for malign ant neoplasm of cervix Cervical cancer screen [place], [place] Start: 2012 DTaP/Tdap/Td vaccine (1 - Tdap) DTaP/Tdap/Td vaccine (1 - Tdap) [place] Start: 2012 Urine microalbumin profile DTAP,TDAP,TD (1 - Tdap) [facility] Start: 2011 Hepatitis C antibody , confirmatory test Hepatitis C Screening [facility] Start: 2011 HEPATITIS C SCREENING HEPATITIS C [facility] Start: 2011 HIV SCREENING HIV SCREENING [facility] Start: 2008 [facility] [place] [place] Start: 2005 Adolescent depressio n screening assessment [facility] Start: 2004 HPV vaccine (1 - 2-d ose series) HPV vaccine (1 - 2-dose series) [place], [place] Start: 1996 History and physical examination, annual for health maintenance Wellness Visit [facility] Start: 1994 Varicella vaccine (1 of 2 - 2-dose childhood series) Varicella vaccine (1 of 2 - 2-dose childhood series) [place], [place] Start: 1993 Screening for malign ant neoplasm of cervix Pap Smear [facility] PT ED PATIENT INFORMATION PT ED PATIENT INFORMATION Other 02/23/2021 [facility] Immunizations Immunization Date Immunization Notes Care Provider Lennox james 08-18-2023 influenza, seasonal, injectable Julia Haywood [facility] 09-25-2022 influenza, seasonal, injectable SELF REFERRAL [facility] Comment on above: Early/Late Reason: E isaac/Late Reason: Nursing Judgment 01-28-2021 COVID-19, mRNA, LNP- S, PF, 30 mcg/0.3 mL dose; Translations: [Pfizer-BioNTech COVID-19 Vaccine] Luis Carlos Fabiana [facility] Comment on above: Reason for Medicatio n: Prophylaxis Reason for Medicatio n: Prophylaxis 12-31-2020 COVID-19, mRNA, LNP- S, PF, 30 mcg/0.3 mL dose; Translations: [Pfizer-BioNTech COVID-19 Vaccine] Luis Carlos Fabiana [facility] Comment on above: Reason for Medicatio n: Prophylaxis Reason for Medicatio n: Prophylaxis 05-12-2018 tetanus toxoid, reduced diphtheria toxoid, and acellular pertussis vaccine, adsorbed; Translations: [Adacel (Tdap)] Luis Carlos Fabiana [facility] Payers Date Payer Category Payer Medicaid [employer] [place] [employer] [id number] 2022-Present [address] [place] [id number] 2019 Unknown [id number] 2019 Unknown [id number] [id number] [id number] 1993 Unknown [id number] 2.16.840.1.796312.3.579.2.173 1993 Unknown [id number] 2.16.840.1.895771.3.579.2.903 1993 Unknown [id number] 2.16.840.1.063726.3.579.2. 1993 Unknown [id number] 2.16.840.1.650793.3.579.2. 1993 Unknown [id number] 2.16.840.1.571018.3.579.2. 1993 Unknown [id number] 2.16.840.1.583024.3.579.2 1993 Unknown [id number] 2.16.840.1.379292.3.579.2 1993 Unknown [id number] 2.16.840.1.950917.3.579.2 1993 Unknown [id number] 2.16.840.1.818057.3.579.2 1993 Unknown [id number] 2.16.840.1.452226.3.579.2 1993 Unknown [id number] 2.16.840.1.106538.3.579.2 1993 Unknown [id number] 2.16.840.1.990860.3.579.2. 1993 Unknown [id number] 2.16.840.1.224346.3.579.2 1993 Unknown [id number] 2.16.840.1.364804.3.579.2. 1993 Unknown [id number] 2.16.840.1.003505.3.579.2 1993 Unknown [id number] 2.16.840.1.576559.3.579.2 1993 Unknown [id number] 2.16.840.1.848136.3.579.2 1993 Unknown [id number] 2.16.840.1.816538.3.579.2.727 1993 Unknown [id number] 2.16.840.1.084222.3.579.2.72 1993 Unknown [id number] 2.16.840.1.818856.3.579.2.727 1993 Unknown [id number] 2.16.840.1.687295.3.579.2.72 1993 Unknown [id number] 2.16.840.1.022539.3.579.2.727 1993 Unknown [id number] 2.16.840.1.869789.3.579.2. 1993 Unknown [id number] 2.16.840.1.838391.3.579.2. 1993 Unknown [id number] 2.16.840.1.512950.3.579.2. 1993 Unknown [id number] 2.16.840.1.367854.3.579.2. 1993 Unknown [id number] 2.16.840.1.821007.3.579.2.1258 1993 Unknown [id number] 2.16.840.1.290686.3.579.2.9 1993 Unknown [id number] 2.16.840.1.545561.3.579.2.1259 1993 Unknown [id number] 2.16.840.1.205638.3.579.2.1259 1993 Unknown [id number] 2.16.840.1.392372.3.579.2.1258 1993 Unknown [id number] 2.16.840.1.399665.3.579.2.1259 1993 Unknown [id number] 2.16.840.1.802885.3.579.2.1259 1993 Unknown [id number] 2.16.840.1.074961.3.579.2.1259 Social History Date Type Detail Facility Start: 08-09-2020 End: 10-14-2020 Tobacco smoking status NHIS Current every day smoker [place] Start: 08-09-2020 End: 10-14-2020 Tobacco use and exposure Never used [place] Start: 10-14-2020 Alcohol intake Ex-drinker (finding) [facility] Start: 1995 Sex Assigned At Not on file M [place], [place] Exposure to SARS-CoV -2 (event) Not sure [place] Start: 08-09-2020 Cigarettes smoked current (pack per day) - Reported [place] Start: 08-09-2020 Alcohol intake Lifetime non-d val (finding) [place] Start: 08-09-2020 History SDOH Alcohol Frequency 1 [place] Start: 07-06-2021 End: 08-18-2022 Tobacco smoking status Light tobacco smoker (finding) [facility] Sex Assigned At Female [facility] Comment on above: current current denies Start: 06-28-2023 Tobacco smoking status Ex-smoker (fi nding) [facility] Comment on above: current Tobacco smoking status Never [facility] Comment on above: current Tobacco smoking status No Smokin g Status Entered [facility] Start: 04-02-2023 [facility] Start: 1995 Sex Assigned At Female [facility] Start: 07-03-2023 Gender identity Identifies as female gender (finding) [facility] Start: 07-03-2023 Sexual orientation Heterosexual (fin ding) [facility] Goals Date Patient Goal Desired Activity /State Personal health goal Functional Status Date Assessment Result Facility 11-04-2023 Functional Status N/A [facility] 08-18-2023 Functional Status N/A [facility] 07-25-2023 Functional Status N/A [facility] 06-28-2023 Functional Status N/A [facility] 06-14-2023 Functional Status N/A [facility] 05-21-2023 Functional Status N/A [facility] 04-26-2023 Functional Status N/A [facility] 01-31-2023 Functional Status N/A [facility] 09-22-2022 Functional Status N/A [facility] 09-20-2022 Functional Status N/A [facility] 09-19-2022 Functional Status N/A [facility] 09-14-2022 Functional Status N/A [facility] 09-12-2022 Functional Status N/A [facility] 09-08-2022 Functional Status N/A [facility] 09-05-2022 Functional Status Yes [facility] 08-30-2022 Functional Status N/A [facility] 08-22-2022 Functional Status N/A [facility] 08-18-2022 Functional Status N/A [facility] 08-13-2022 Functional Status N/A [facility] 07-26-2022 Functional Status N/A [facility] 07-17-2022 Functional Status N/A [facility] 06-26-2022 Functional Status N/A [facility] 06-18-2022 Functional Status N/A [facility] 05-01-2022 Functional Status N/A [facility] 04-02-2022 Functional Status N/A [facility] Clinical Notes 03-10-2021 to 11-27-2023 Althea [...] nursing note reviewed. Exam conducted with a plastic parts fabricator trimmer present. Vitals: There is no height or [...] Rashaun Amador DO documented in this encounter [facility] 11-20-2023 History of Present illness Narrative Reason [...] nursing note reviewed. Exam conducted with a plastic parts fabricator trimmer present. Vitals: There is no height or [...] Rashaun Amador DO documented in this encounter [facility] 11-04-2023 Evaluation + Plan note Diagnostic Tests PendingUrine Culture 11/04/23 [facility] 11-04-2023 Hospital Discharge instructions Follow [facility] Care 11/04/2023 07:55:34 With:Rashaun AMADOR Address: [address] , [place] [address]- Business (1) When:11/06/2023 Comments:Call for any problems.Appointment has already been scheduledCall physician if symptoms worsenPlease call if you need to rescheduleReturn for contractions closer, longer, harderReturn for decreased movementReturn if ruptured membranes or vaginal bleeding [facility] 08-23-2023 Evaluation + Plan note Diagnostic Tests PendingT3 Total 08/23/23 [facility] 08-18-2023 Note The following Patien t Education Materials have been given to the patient: EducationMaterial [facility] 08-18-2023 Hospital Discharge instructions Patient Education 08/18/2023 08:14:46 Second Trimester of , Lfmn-nv-Vupn Second Trimester of The second trimester of [...] Follow these instructions at home: Medicines Take jmxd-rbq-jowdqka and prescription medicines only as told by [...] provider. Document Revised: 03/09/2021 Document Reviewed: 01/13/2021 ZetrOZ Patient Education 2022 [employer]. [facility] 07-25-2023 Evaluation + Plan note Extrac francisca [...] Tests Pending * Urine Culture 07/25/23 [facility]10-11-2023 Hospital Discharge instructions Patient Education 07/25/2023 09:56:41 [...] to keep your urine pale yellow. Take uwbf-wsy-hvqyyei and prescription medicines only as told by [...] provider. Document Revised: 06/14/2021 Document Reviewed: 06/14/2021 ZetrOZ Patient Education 2022 [employer]. [facility] 07/25/2023 08:14:26 With:Luis Carlos Jung Address: [facility] [place] [id number] Business (1) When:07/28/2023 09:56:27 [facility]09-14-2023 Evaluation + Plan note Diagnostic Tests Pending * Urine Culture 06/28/23 [facility]09-14-2023 Hospital Discharge instructions Patient Education 06/28/2023 11:39:14 Urinary Tract Infection, Adult, Tehs-lp-Qsuu Urinary Tract Infection, Adult A urinary tract [...] Follow these instructions at home: Medicines Take mirw-hgd-myzizaw and prescription medicines only as told by [...] provider. Document Revised: 05/13/2021 Document Reviewed: 05/13/2021 ZetrOZ Patient Education 2022 [employer]. 06/28/2023 11:39:14 Urinary Tract Infection, Adult, Yilq-zs-Wqlw Urinary Tract Infection, Adult A urinary tract [...] Follow these instructions at home: Medicines Take gvpj-ntv-varzbbk and prescription medicines only as told by [...] provider. Document Revised: 05/13/2021 Document Reviewed: 05/13/2021 ZetrOZ Patient Education 2022 [employer]. [facility] 06/28/2023 10:22:58 With:Fabiana MARION, Luis Carlos Byrd, [facility] Address: [address] [place] [address]- When: Unknown [facility] 08-31-2023 Evaluation + Plan noteExtracted from: Title:ED Note Author:Jos Ugalde PA-C te:06/14/23 1. Abdominal pain (R10.9: Un specified abdominal pain) Orders: ABO/Rh Automated Diff Basic Metabolic Panel Beta hCG Quantitative CBC w/ Auto Diff eGFR Extra Blue Tube Extra SST Tube Hepatic Function Panel Lipase Level UA With Cult Reflex US 1st Trimester [facility]08-08-2023 Hospital Discharge instructions Patient Education 05/21/2023 23:23:44 Nonspecific Chest Pain, Adult, Bmgk-su-Iymc Nonspecific Chest Pain Chest pain can be [...] Follow these instructions at home: Medicines Take sdwc-fik-epwbvfs and prescription medicines only as told by [...] ?Eating a heart-healthy diet. A diet and video specialist (dietitian) can help you to learn [...] provider. Document Revised: 12/15/2021 Document Reviewed: 12/15/2021 ZetrOZ Patient Education 2022 [employer]. 05/21/2023 23:23:44 Nausea and Vomiting, Adult, Suak-hu-Flon Nausea and Vomiting, Adult Nausea is feeling [...] fruit juice). ?Low-calorie sports drinks. Eat bland, sfra-sl-ipvmsw foods in small amounts as you are able, such as: ?Bananas. ?Applesauce. ?Rice. ?Low-fat (lean) meats. ?Argenta. ?Crackers. Avoid drinking fluids that have a lot of sugar or caffeine in them. This includes energy drinks, sports drinks, and soda. Avoid alcohol. Avoid spicy or fatty foods. General instructions Take mjqb-zwm-lakwjxb and prescription medicines only as told by your doctor. Drink enough fluid to keep your pee (urine) pale yellow. Wash your hands often with soap and water for at least 20 seconds. If you cannot use soap and water, use hand director of graduate medical education. Make sure that everyone in your home [...] your doctor about eating and drinking. Take ymxm-tyf-traymqv and prescription medicines only as told by your doctor. Contact your doctor if your symptoms get worse or you have new symptoms. Keep all follow-up visits. This information is not intended to replace advice given to you by your health care provider. Make sure you discuss any questions you have with your health care provider. Document Revised: 04/07/2022 Document Reviewed: 04/07/2022 ZetrOZ Patient Education 2022 [employer]. 05/21/2023 23:23:44 Abdominal Pain During , Oawa-pp-Nrnc Abdominal Pain During Belly (abdominal) pain is [...] keep your pee (urine) pale yellow. Take kfih-luq-euptmeb and prescription medicines only as told by [...] provider. Document Revised: 06/14/2021 Document Reviewed: 06/14/2021 ZetrOZ Patient Education 2022 [employer]. Follow Up Care 05/21/2023 20:38:52 With:Luis Carlos Jung Address: [facility] [address], [address] [address] Business (1) When:05/24/2023 Comments:Take the Pepcid once daily until you have completed the course. You can use the Zofran every 6 hours as needed for nausea and vomiting. Please follow-up with your primary care doctor next 2 to 3 days. Please return to the ED for any new or worsening symptoms. [facility]08-07-2023 Evaluation + Plan noteExtracted from: Title:ED Note [...] With Cult Reflex US 1st Trimester [facility]07-17-2023 Evaluation + Plan note Diagnostic Tests Pending * PAP [id number]/30/23 * Urine Culture 04/30/23 [facility]07-17-2023 Evaluation + Plan note Diagnostic Tests Pending * RPR with Conf Rfx 04/30/23 * HIV Screen 4th Generation wRfx 04/30/23 * Rubella Antibody IgG 04/30/23 * Hepatitis B Surface Antigen 04/30/23 [facility]07-13-2023 Evaluation + Plan noteExtracted from: Title:ED Note Author:Jos Ugalde PA-C te:04/26/23 Abdominal pain (R10.9: Unspe cified abdominal pain) (Z34.90: Encounter for supervision of normal , unspecified, unspecified trimester) Orders: Beta hCG Quantitative Extra Lav Tube Extra SST Tube US 1st Trimester US Transvaginal [facility]07-13-2023 Hospital Discharge instructions Patient Education 04/26/2023 11:11:44 [...] to keep your urine pale yellow. Take xdni-bhg-isewbmw and prescription medicines only as told by [...] provider. Document Revised: 06/14/2021 Document Reviewed: 06/14/2021 ZetrOZ Patient Education 2022 [employer]. Follow Up Care 04/26/2023 08:52:22 With:Luis Carlos Jung Address: [address], [address] [place] [address] Business (1) When:04/29/2023 10:58:02 [facility]04-19-2023 Evaluation + Plan noteExtracted from: Title:ED Note [...] EDT, STAT, Start date 01/31/23 10:01:00 EDT, 04/19/23 10:01:00 EDT Sodium Chloride 0.9% intravenous solution, 1,000 mL, Soln-IV, IV, Once, Stop date 01/31/23 10:01:00 EDT, STAT, Start date 01/31/23 10:01:00 EDT, Infuse over 61, minute(s) Automated Diff Basic Metabolic Panel Beta hCG Qual CBC w/ Auto Diff CTA Head eGFR Oxygen Therapy PT & PTT [facility]04-19-2023 Hospital Discharge instructions Patient Education 01/31/2023 11:57:21 [...] Follow these instructions at home: Medicines Take bgwn-agw-bptaphj and prescription medicines only as told by your health care provider. Ask your health care provider if the medicine prescribed to you: ?Requires you to avoid driving or using heavy machinery. ?Can cause constipation. You may need to take these actions to prevent or treat constipation: ?Drink enough fluid to keep your urine pale yellow. ?Take svsq-xnr-vviehxt or prescription medicines. ?Eat foods that are [...] provider. Document Revised: 01/23/2020 Document Reviewed: 11/13/2019 ZetrOZ Patient Education 2022 [employer]. Follow Up Care 01/31/2023 09:42:02 With:THANG MILLAN Address: [address] [place] [id number] [facility] (1) When:02/03/2023 11:57:07 Comments:Call the office of [...] or any new or worsening symptoms. [facility] Comment: Electronically Signed By: Luis Carlos Jung MD\.br\Date and Time Signed: 09/29/22 09:25 [id number] [facility] Comment on above:Result Comment: Electronically Signed By: Luis Carlos Jung MD\.br\Date and Time Signed: 09/29/22 09:25 [id number] NoteThe following Patient Education Materials have been given to the patient: [facility]12-09-2022 NoteThe following Patient Education Materials have been given to the patient: [facility]12-09-2022 Hospital Discharge instructions Follow Up Care 09/22/2022 15:11:14 With:Luis Carlos Jung Address: [address], [facility] [address] [place] [address]- Business (1) When:09/24/2022 20:30:00 Comments:Appointment has already been scheduledCall for any problems.Call for fever > 100.5 FCall for severe abdominal painCall physician for heavy vaginal bleedingCall physician if symptoms worsenReturn for contractions closer, longer, harderReturn for decreased movementReturn if ruptured membranes or vaginal bleedingCall at 7:30 pm Sunday to confirm induction at 8:30 [facility]12-07-2022 NoteThe following Patient Education Materials have been given to the patient: [facility]12-06-2022 NoteThe following Patient Education Materials have been given to the patient: [facility]12-06-2022 Hospital Discharge instructions Follow Up Care 09/19/2022 01:24:08 With:Luis Carlos Jung Address: [address], [facility] [address] [place] [address]- Business (1) When:09/20/2022 Comments:Appointment has already been scheduledCall Dr if fever>100.5 F, heavy bleedingCall for any problems.Call for severe abdominal painCall physician for heavy vaginal bleedingCall physician if symptoms worsenReturn for contractions closer, longer, harderPlease call if you need to rescheduleReturn for decreased movementReturn if ruptured membranes or vaginal bleeding [facility]12-01-2022 NoteThe following Patient Education Materials have been given to the patient: [facility] Discharge instructions Patient Education 09/14/2022 11:56:10 Sinus Headache, Gnyb-wa-Rxdq Sinus Headache A sinus headache happens when [...] on the bottle or box. Medicines Take uroa-pqt-kmhzvsn and prescription medicines only as told by [...] face, forehead, ears, or upper teeth. Take zmfg-tqp-winisaf and prescription medicines only as told by your doctor. If told, apply a warm, moist washcloth to your face. This can help to lessen pain. This information is not intended to replace advice given to you by your health care provider. Make sure you discuss any questions you have with your health care provider. Document Released: 01/31/2012 Document Revised: 09/13/2018 Document Reviewed: 07/12/2018 ZetrOZ Patient Education 2020 [employer]. Follow Up Care 09/14/2022 09:13:06 With:Luis Carlos Jung Address: [address], [address] [address] [facility] (1) When:09/20/2022 Comments:Return if ruptured membranes or vaginal bleedingReturn for decreased movementReturn for contractions closer, longer, harderCall physician if symptoms worsenCall for severe abdominal painCall for fever > 100.5 F Drink 8-10 glasses of water/day Use SUDAFED, TYLENOL AND BENADRYL as previouslydirected by Dr Fabiana Longoria - [facility]11-29-2022 NoteThe following Patient Education Materials have been given to the patient: [facility] Discharge instructions Patient Education 09/12/2022 20:39:28 Third Trimester of , Fkzg-sc-Zbqz Third Trimester of The third trimester is from week 28 through week 40 (months 7 through 9). This trimester is when your unborn baby (fetus) is growing very fast. At the end of the ninth month, the unborn baby is about20 inches in length. It weighs about 6 10 pounds. Follow these instructions at home: Medicines Take sbky-nxx-maxflxr and prescription medicines only as told by [...] 12/26/2010 Document Revised: 01/22/2020 Document Reviewed: 11/06/2017 ZetrOZ Patient Education 2020 [employer]. Follow Up Care 09/12/2022 19:44:10 With:Luis Carlos Jung Address: [address], [facility] [address] [place] [address] [facility] (1) When:09/20/2022 Comments:Appointment has already been scheduledCall Dr if fever>100.5 F, heavy bleedingCall for any problems.Call for severe abdominal painCall physician for heavy vaginal bleedingCall physician if symptoms worsenPlease call if you need to rescheduleReturn for contractions closer, longer, harderReturn for decreased movementReturn if ruptured membranes or vaginal bleeding [facility]-25-2022 NoteThe following Patient Education Materials have been given to the patient: [facility] Discharge instructions Follow Up Care 09/08/2022 08:14:23 With:Luis Carlos Jung Address: [address], [facility] [address] [place] [address] [employer] (1) When:09/11/2022 Comments:Return for contractions closer, longer, harderReturn for decreased movementReturn if rupturedmembranes or vaginal bleeding [facility]11-23-2022 Hospital Discharge instructions Patient Education 09/05/2022 22:13:40 [...] the coronavirus come from? In September 2019, [place] told the World Health Organization (WHO) of several cases of lung disease (human respiratory illness). These cases were linked to an open seafood and livestock market in the [facility]. The link to the [...] and virus naming World Health Organization (WHO): www.who.int/emergencies/diseases/yovcn-fbvzjofbcwt-3577/technical-g uidance/vqbxxb-ans-rnivzxjmyro-disease-(covid-2019)-kuc-fim-tqxen-amhe-jauxto-wp Who is at risk for complications from [...] relieve his or her symptoms by using gxpx-igr-scdchij medicines that treat sneezing, coughing, and runny [...] water are not available, use alcohol-based hand director of graduate medical education. Avoid touching your face, mouth, nose, or [...] Prevention (CDC): www.cdc.gov/coronavirus/2019-ncov/travelers/index.html World Health Organization (WHO): www.who.int/emergencies/diseases/xkuji-sxxycyqllss-2416/travel-advice Know the risks and take action to [...] water are not available, use alcohol-based hand director of graduate medical education. Cough or sneeze into a tissue, sleeve, [...] in hot, soapy water or use a wireless technician. Air-dry your dishes. Wash laundry in [...] Health Organization (WHO) Information and news updates: www.who.int/emergencies/diseases/utugp-guehxzkvfrc-8168 Coronavirus health topic: www.who.int/health-topics/coronavirus Questions and answers on COVID-19: www.who.int/news-room/q-a-detail/k-h-ieoelkbebgbyr Global tracker: who.indidebt.[employer] [place] [employer] (AAP) Information for families: www.healthychildren.org/Greek/health-issues/conditions/chest-lungs/Pages /7317-Pbqka-Fwbgdupinnq.aspx The coronavirus situation is changing rapidly. Check [...] 01/27/2020 Document Revised: 01/27/2020 Document Reviewed: 01/27/2020 ZetrOZ Patient Education 2020 Z[employer] Inc. 09/05/2022 22:13:40 COVID-19 COVID-19 COVID-19 is [...] managed at home with rest, fluids, and dycc-iny-qymladh medicines. Treatment for a serious infection usually [...] are safe for you. General instructions Take vart-pcc-wjjcnqb and prescription medicines only as told by [...] water are not available, usean alcohol-based hand director of graduate medical education. ?Avoid touching your mouth, face, eyes, or [...] water are not available, use alcohol-based hand director of graduate medical education. Stay away from other members of your [...] 11/06/2019 Document Revised: 02/26/2020 Document Reviewed: 11/06/2019 Elsevier Patient Education 2020 Elsevier Inc. Follow Up Care 09/05/2022 20:08:29 With:Luis Carlos Jung Address: [address], [address] [address]- Business (1) When:09/08/2022 21:42:10 Comments:Use the albuterol inhaler 2 puffs every 4 hours for the next 2 to 3 days, you can use the Zofran every 6 hours as needed for nausea and vomiting. Please follow-up with your primary care doctor in thenext 2 to 3 days. Please return to the ED for any new or worsening symptoms. With:THANG MILLAN Address: [address] [place] [address] Business (1) When:09/08/2022 21:42:06 [facility]11-22-2022 Evaluation + Plan noteExtracted from: Title:ED Note [...] PT & PTT Rapid COVID Antigen ([facility]) Saline Lock Insert Troponin 0 Hr. XR Chest Single View Future Appointments Appointment Date:09/06/2022 07:00:00 AM Scheduled Provider: [facility] App[facility] Type:Outpatient COVID Testing [facility]11-21-2022 Evaluation + Plan note Diagnostic Tests Pending * Group B Streptococcus colonization by PCR 09/04/22 [facility]11-17-2022 NoteThe following Patient Education Materials have been given to the patient: [facility] Discharge instructions Patient Education 08/31/2022 00:56:47 Third Trimester of , Fufr-mg-Ipci Third Trimester of The third trimester is from week 28 through week 40 (months 7 through 9). This trimester is when your unborn baby (fetus) is growing very fast. At the end of the ninth month, the unborn baby is about20 inches in length. It weighs about 6 10 pounds. Follow these instructions at home: Medicines Take lyzd-eqr-stlwkuq and prescription medicines only as told by [...] 12/26/2010 Document Revised: 01/22/2020 Document Reviewed: 11/06/2017 ElseAnn [employer]bor SPARK Patient Education 2020 Presence[employer]. Follow Up Care 08/30/2022 21:31:53 With:Luis Carlos Jung Address: [address] [place] [address] [address] Business (1) When:09/04/2022 Comments:Call for any problems.Call for severe abdominal painCall physician for heavy vaginal bleedingReturnfor contractions closer, longer, harderReturn for decreased movementReturn if ruptured membranes or vaginal bleeding [facility]11-08-2022 Hospital Discharge instructions Follow Up Care 08/22/2022 14:58:59 With:Dr. 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 [facility]11-04-2022 Evaluation + Plan note Diagnostic Tests Pending * Urine Culture 08/18/22 [facility]11-04-2022 Hospital Discharge instructions Follow Up Care 08/18/2022 03:47:49 With:Luis Carlos Jung Address: [address] [place], [address] [address] Business (1) When:08/21/2022 08:45:00 Comments:Appointment has already been scheduled, please keep scheduled apptCall for any problems.Call physician if symptoms worsen [facility]10-30-2022 Hospital Discharge instructions Patient Education 08/13/2022 19:55:11 [...] 09/21/2003 Document Revised: 06/25/2018 Document Reviewed: 04/30/2017 ZetrOZ Patient Education Guess Your Songs Follow Up Care 08/13/2022 17:29:42 With:Luis Carlos Jung Address: [address] [address] [facility] (1) When:1 to 2 days Comments:Call for any problems.Return for contractions closer, longer, harderReturn for decreased movementReturn if ruptured membranes or vaginal bleeding [facility]10-13-2022 Hospital Discharge instructions Follow Up Care 07/27/2022 01:12:54 With:Dr. Jung [phone] Address:Unknown When:09/24/2022 20:30:00 Comments:Call for any problems.Return if ruptured membranes or vaginal bleedingReturn for decreased movementcontractions every 5 minutes lasting 45 seconds for an hourCall Sunday night at 7:30 PM to assure bed availability for induction [facility]10-12-2022 Hospital Discharge instructions Patient Education 07/26/2022 10:15:24 [...] Follow these instructions at home: Medicines Take weho-yea-fwdcwkj and prescription medicines only as told by [...] as fried or sweet foods. ?Take an skxv-jch-qqrfqve or prescription medicine for constipation. If you [...] 12/28/2009 Document Revised: 05/28/2019 Document Reviewed: 11/11/2018 ZetrOZ Patient Education [employer]. Follow Up Care 07/26/2022 07:56:25 With:Luis Carlos Jung Address: [facility] [address] [address] Business (1) When:08/07/2022 07:45:00 [facility]10-03-2022 Evaluation + Plan noteExtracted from: Title:ED Note [...] Influenza A&B Ag Rapid COVID Antigen ([facility]) UA With Cult Reflex [facility]10-03-2022 Hospital Discharge instructions Patient Education 07/17/2022 09:55:44 [...] 01/26/2012 Document Revised: 01/23/2020 Document Reviewed: 09/04/2019 ZetrOZ Patient Education 2020 [employer] Inc. 07/17/2022 09:55:44 Urinary Tract Infection, Adult Urinary [...] Treatment for this condition includes: Antibiotic medicine. Mmxt-ody-rgfjwth medicines to treat discomfort. Drinking enough water [...] Follow these instructions at home: Medicines Take rexc-xse-ulvpafq and prescription medicines only as told by [...] 07/11/2006 Document Revised: 09/18/2019 Document Reviewed: 04/10/2019 ZetrOZ Patient Education 2020 Presence[employer]. Follow Up Care 07/17/2022 09:04:38 With:Luis Carlos Jung Address: [facility] [address] [address]- Business (1) When:07/20/2022 09:46:49 With:THANG MILLAN Address: [address] [place] [address] [place] [address] [facility] (1) When:07/20/2022 09:46:41 Comments:Follow-up with your primary care provider in 3 to 5 days. If symptoms worsen, do not improve, or new symptoms arise please report back to emergency department for further evaluation. [facility]09-14-2022 Evaluation + Plan note Diagnostic Tests Pending * RPR with Conf Rfx 06/28/22 [facility]09-12-2022 Hospital Discharge instructions Patient Education 06/26/2022 21:35:59 [...] 09/21/2003 Document Revised: 06/25/2018 Document Reviewed: 04/30/2017 ZetrOZ Patient Education 2020 Presence[employer]. 06/26/2022 21:35:59 Form - Movement Counts Movement [...] 10/31/2007 Document Revised: 10/21/2019 Document Reviewed: 11/09/2016 ZetrOZ Patient Education 2020 ZetrOZ Inc. Follow Up Care 06/26/2022 20:41:33 With:Luis Carlos Jung Address: [facility] [address] [address] Business (1) When:07/03/2022 07:45:00 Comments:Call for any problems.Please call if you need to rescheduleReturn for decreased movement [facility]09-05-2022 Hospital Discharge instructions Follow Up Care 06/18/2022 23:33:38 With:Luis Carlos Jung Address: [address], [address] [address] Business (1) When:5 to 7 days Comments:Appointment has already been scheduledCall for any problems.Call for fever > 100.5 FCall for severe abdominal painCall physician for heavy vaginal bleedingPlease call if you need to rescheduleReturn for contractions closer, longer, harderReturn for decreased movementReturn if ruptured membranes or vaginal bleeding [facility]07-18-2022 Hospital Discharge instructions Follow Up Care 05/01/2022 17:08:54 With:Luis Carlos Fabiana Address: [address], [address] [address]- Business (1) When:05/09/2022 Comments:Return if ruptured membranes or vaginal bleedingReturn for contractions closer, longer, harderCall physician if symptoms worsenCall physician for heavy vaginal bleedingCall for severe abdominal painCall for fever > 100.5 FCall for any problems. drink more fluids including gatorade, take milk of magnesia twice /day until yo u have bowel movements, benefiber daily [facility]06-19-2022 Evaluation + Plan note Diagnostic Tests Pending * Urine Culture 04/02/22 [facility]06-19-2022 Hospital Discharge instructions Patient Education 04/02/2022 10:22:48 Second Trimester of , Vios-eo-Cqlx Second Trimester of The second trimester is [...] Follow these instructions at home: Medicines Take yzyy-aya-dnbhfps and prescription medicines only as told by [...] 12/26/2010 Document Revised: 01/23/2020 Document Reviewed: 11/06/2017 ZetrOZ Patient Education 2020 ZetrOZ Inc. 04/02/2022 10:22:48 Vaginal Bleeding During , [...] says that this is safe. Medicines Take cyue-fhd-uzayvqm and prescription medicines only as told by [...] 07/11/2006 Document Revised: 01/20/2020 Document Reviewed: 01/03/2018 ZetrOZ Patient Education 2020 ZetrOZ Inc. Follow Up Care 04/02/2022 06:00:26 With:Dr. Jung [phone] Address:Unknown When:2 to 3 days Comments:Call for any problems.Call physician if symptoms worsen [facility]06-09-2022 Hospital Discharge instructions Patient Education 03/23/2022 20:39:21 Second Trimester of , Hrfa-hx-Ugry Second Trimester of The second trimester is [...] Follow these instructions at home: Medicines Take hfjh-mfr-imattxi and prescription medicines only as told by [...] 12/26/2010 Document Revised: 01/23/2020 Document Reviewed: 11/06/2017 ZetrOZ Patient Education 2020 PresenceID. 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 Avoid heavy [...] grounds. You are around people who have Kinyarwanda measles, fifth disease, or chickenpox. You have [...] 03/19/2009 Document Revised: 01/22/2020 Document Reviewed: 10/09/2017 ZetrOZ Patient SI2 - Sistema de Informação do Investidor 03/23/2022 20:39:21 Abdominal Pain During , Kjji-bb-Njhe Abdominal Pain During Belly (abdominal) pain is [...] keep your pee (urine) pale yellow. Take yxkm-jmj-guivbks and prescription medicines only as told by [...] 09/19/2010 Document Revised: 01/19/2020 Document Reviewed: 01/03/2018 ZetrOZ Patient Education [employer]. Follow Up Care 03/23/2022 19:35:57 With:Luis Carlos Jung Address: [address] [place] [address] [place], [address] [address]- Business (1) When:03/27/2022 10:00:00 Comments:Call for any problems. Call [facility] first, ask to speak directly to Dr. Jung before heading to hospital unless an emergency. Call for severe abdominal pain or worsening pain.Return if vaginal bleedingor ruptured membranes.Wear belly band as much as possible, especially as your belly grows in . [facility]05-04-2022 Evaluation + Plan note Diagnostic Tests Pending * RPR with Conf Rfx 02/15/22 * HIV Screen 4th Generation wRfx 02/15/22 * Rubella Antibody IgG 02/15/22 * Hepatitis B Surface Antigen 02/15/22 * Urine Culture 02/15/22 [facility]06-18-2021 NoteHNO ID: [id number] Author: Bert Negrete, DO Service: ? 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 [facility]06-10-2021 NoteHNO ID: [id number] Author: RT Oliva(R) Service: Nuclear Medicine Author Type: Ply Bander Type: Progress Notes Filed: 03/24/2021 9:39 AM [...] safety can be found using this link: [email or web address] SIGNATURE: RT Oliva(R) PATIENT NAME: Susan Bro DATE: March 24, 2021 TIME: 9:38 AM PAGER/CONTACT #:[facility]05-27-2021 NoteHNO ID: [id number] Author: Martha Webb MD Service: ? Author [...] biliary ductal dilatation is (more content not included)...[facility] Diagnosis Third trimester state, incidental documented in this encounter [facility]* Diagnosis Third trimester state, incidental Hypothyroidism (acquired) (CMS/HCC) Unspecified hypothyroidism documented in this encounter [facility] HealthcareHospital course Narrative No data available for this section [facility] No data available for this section [facility] No data available for this section [facility] Summary Purpose Family History No Family History [...] Documents on File Type Date Recorded 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 When you make an appointment with [facility], it's the start of a long-lasting partnership that's committed to your health. We provide the very best prevention, wellness and illness care, and give you access to the advanced medical services and expert treatment available at [facility]. Please note that the provider listed below is accepting patients in your area. [place]: [address] [place] [address] MD Debby Lala MD Christina Spring, [place] For the most up-to-date information on a care provider in your community, use the Find a Doctor tool on [place] [facility] Primary Care * Attachments The following attachments cannot be sent through Care Everywhere. * Vertigo (Greek) * Arik Maneuver: Vertigo: Exercises (Greek) documented in this encounter* Instructions* Bakari Valente [...] be sent through Care Everywhere. * Bruises (Greek) * Contusion (Greek) documented in this encounter Assessments Diagnosis Vertigo- Primary Dizziness and giddiness Diagnosis Contusion of right knee, initial encounter Contusion of multiple sites of right shoulder and upper arm, initial encounter Additional Source Comments INFORMATION SOURCE (unrecogn ized section and content) DATE CREATED AUTHOR 04/09/2018 [facility] DATE CREATED AUTHOR AUTHOR'S ORGANIZ ATION 08/10/2020 [facility] DATE CREATED AUTHOR AUTHOR'S ORGANIZ ATION 09/07/2020 [facility] DATE CREATED AUTHOR AUTHOR'S ORGANIZ ATION 10/20/2020 [facility] DATE CREATED AUTHOR AUTHOR'S ORGANIZ ATION 03/18/2021 [facility] DATE CREATED AUTHOR AUTHOR'S ORGANIZ ATION 11/15/2021 [facility] DATE CREATED AUTHOR AUTHOR'S ORGANIZ ATION 08/25/2023 [facility] DATE CREATED AUTHOR AUTHOR'S ORGANIZ ATION 11/28/2023 [facility] Specialists EPIC Reason for Visit (unrecogniz ed section and content) Reason Comments Dizziness Reason Comments Knee Pain right knee pain, fel l over a dust guzman POT RUNNER and fell onto right knee. denies hitting head or any LOC Shoulder Pain rt shoulder, fell ov er dust guzman onto her right side. Reason Comments Routine Visit Susan Griffiths PA-C - 10/14/2020 10:44 AM Amena Cantrell RN - 10/14/2020 10:32 AM EST ED Notes (unrecognized secti on and content) [facility] ED Note: NAME: Susan Bro 24 y.o. CSN: [id number] PCP: Physician No History: Chief Complaint: Dizziness [...] file Gets together: Not on file Attends anabaptism service: Not on file Active member of [...] does have reproducible vertigo with position changes. Rxqxjk-eq-iqtp maneuvers are intact without dysmetria. There is negative Romberg sign. There was no ataxia on ambulation. Psychiatric: Mood and Affect: Mood normal. Behavior: Behavior normal. Thought Content: Thought content normal. Laboratory & Radiological Imaging (if done): Labs Reviewed URINALYSIS - Abnormal; Notable for the following components: Result Value Clarity, Urine Cloudy (*) Specific [place] 1.028 (*) pH, Urine 8.0 (*) Protein, [...] at the following links: For Healthcare Providers: https://www.fda.gov/media/776658/download For Patients: https://www.fda.gov/media/230248/download HCG URINE, QUALITATIVE - Normal CBC AND DIFFERENTIAL Narrative: The following orders were created for panel order CBC w/ Diff. Procedure Abnormality Status --------- ------ CBC Auto Differential[[id number]] Abnormal Final result Please view results for these tests on the individual orders. HCG URINE, QUALITATIVE URINALYSIS CT Head Or Brain Without Contrast Final Result 1. No acute intracranial hemorrhage, focal edema or mass effect. Workstation ID: [id number] EKG: Normal sinus rhythm with sinus arrhythmia RATE: 74 AXIS: Normal axis INTERVALS: CA interval of 178 ms, QRS duration of [...] Antivert. She is referred to follow-up with [facility] or [facility] that she does not currently have a [...] needed for dizziness . Susan Griffiths Physicians Permit Agent [facility] Emergency Department Susan Griffiths PA-C 10/14/20 1203 Special isolation precautions are in place with signage outside this patient's room. 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 and enters the [...] or prosecute any alcohol or drug abuse patient.[facility] Care Team (unrecognized sect ion and content) Personnel Name: THANG MILLAN CNP Address: [address] [place] [address] Personnel Name: THANG MILLAN CNP Address: [address] [place] [address] Personnel Name: THANG MILLAN CNP Address: [address] [place] [address] Personnel Name: THANG MILLAN CNP Address: [address] [place] [address] Personnel Name: THANG MILLAN CNP Address: [address] [place] [address]- [place] Personnel Name: THANG MILLAN CNP Address: [address] [place] [address]- [place] Personnel Name: THANG MILLAN CNP Address: [address] [place] [address]- [place] Personnel Name: THANG MILLAN CNP Address: [address] [place] [address]- [place] Personnel Name: THANG MILLAN CNP Address: Address: [address] [place] [address]- [place] Personnel Name: THANG MILLAN CNP Address: Address: [address] [place] [address]- [place] Personnel Name: THANG MILLAN CNP Address: Address: [address] [place] [address]- [place] Personnel Name: THANG MILLAN CNP Address: Address: [address] [place] [address]- [place] Personnel Name: THANG MILLAN CNP Address: Address: [address] [place] [address]- [place] Personnel Name: THANG MILLAN CNP Address: Address: [address] [place] [address]- [place] Personnel Name: THANG MILLAN CNP Address: Address: [address] [place] [address]- [place] Personnel Name: THANG MILLAN CNP Address: Address: [address] [place] [address]- [place] Personnel Name: THANG MILLAN CNP Address: Address: [address] [place] [address]- [place] Personnel Name: THANG MILLAN CNP Address: Address: [address] [place] [address]- [place] Personnel Name: THANG MILLAN CNP Address: Address: [address] [place] [address]- [place] Personnel Name: THANG MILLAN CNP Address: Address: [address] [place] [address]- [place] Personnel Name: THANG MILLAN CNP Address: Address: [address] [place] [address]- [place] Personnel Name: THANG MILLAN CNP Address: Address: [address] [place] [address]- [place] Personnel Name: THANG MILLAN CNP Address: Address: [address] [place] [address]- [place] Personnel Name: THANG MILLAN CNP Address: Address: [address] [place] [address]- [place] Personnel Name: THANG MILLAN CNP Address: Address: [address] [place] [address]- [place] Personnel Name: MILLAN ALLISONOMAYRAO Address: Address: [address] [place] [address] Personnel Name: Luis Carlos Jung MD Address: Address: [facility] [address], [address] [address] Personnel Name: Luis Carlos Jung MD Address: Address: [facility] [address], [place] [id number] Personnel Name: Luis Carlos Jung MD Address: Address: [facility] [address], [place] [id number] Personnel Name: Luis Carlos Jung MD Address: Address: [facility] [address], [address] Personnel Name: Luis Carlos Jung MD Address: Address: [facility] [address], [address] Personnel Name: Rashaun AMADOR DO Address: Address: [address] , [facility] [place] Personnel Name: NONE, XXXX Address: Address: [facility] [[email or web address]] Personnel Name: LLC, GENERIC Personnel Name: LLC, [...] BE BASED ON THE PRIMARY CLINICAL RECORDS. [facility]. provides no warranty or guarantee of the accuracy or completeness of information in this document.
--- NOTE | 2023-12-04 10:06 | US_ITS ---
[address] [address] Patient Name: DEANDRA MOCTEZUMA MRN: [id number] date: 1995 Sex: F Assigned Patient Location: [facility] Current Patient Location: [facility] Accession/Order Number: [id number] Exam Date: 12/04/2023 10:10 Report Date: 12/04/2023 10:44 At the request of: JOSSE PURVIS Procedure: US OB BPP w non-stress EXAMINATION: US OB BPP w non-stress HISTORY: Excessive growth COMPARISON: Ultrasound OB biophysical 11/27/2023 TECHNIQUE: Ultrasound biophysical profile was performed in the radiology department. BREATHING MOVEMENTS: 2.0 GROSS BODY MOVEMENTS: 2.0 TONE: 2.0 QUALITATIVE AMNIOTIC FLUID VOLUME: 2.0 PRESENTATION: CEPHALIC HEART RATE: 130.4 bpm bpm. AMNIOTIC FLUID VOLUME: 17.1 cm GESTATIONAL AGE: 37 weeks 1 days CONCLUSION: Total biophysical profile score 8.0. Electronically authenticated by: SUSHILA HERRERA Date: 12/04/2023 10:44
[2023-12-04 10:32] VITALS: BP 120/75; PULSE 71
== END 2023-12-04 10:59 | disposition home or self-care (01) ==
LOC: US 07:47 → FBC 10:05
PROVIDERS: Visit Provider Obstetrics & Gynecology
DX: O36.63X0 Maternal care for excessive fetal growth, third trimester, not applicable or unspecified (principal); Z3A.37 37 weeks gestation of pregnancy
CPT/HCPCS: 76818

== ENCOUNTER 2023-12-05 13:20 | Inpatient (IN) | payer OTHER, SELFPAY ==
[2023-12-05] VITALS (65 sets, daily range): BP systolic 66–141; BP diastolic 36–93; PULSE 64–98; RESP 16–18; TEMP 35.8–36.6
[2023-12-05 13:48] LABS: Bilirubin Urine NEGATIVE (NEGATIVE); Blood Urine SMALL (NEGATIVE); Clarity Urine CLEAR (CLEAR); Color Urine LT. YELLOW (YELLOW); Glucose Urine UA NEGATIVE (NEGATIVE); Ketones Urine NEGATIVE (NEGATIVE); Leukocyte Esterase Urine LARGE (NEGATIVE); Nitrite Urine NEGATIVE (NEGATIVE); Protein Urine NEGATIVE (NEG/TRACE); Urobilinogen Urine 0.2 EU/dL (0.2-1.0); pH Urine 7.5 (5.0-9.0)
[2023-12-05 13:54] LABS: Urine Microscopic Indicated YES
[2023-12-05 13:58] LABS: Bacteria Urine LARGE #/HPF (NONE SEEN); Mucus Urine NONE SEEN (NONE SEEN); WBC Urine 20-50 #/HPF (NONE SEEN)
[2023-12-05 13:59] LABS: Squamous Epithelial Cell Urine MANY #/LPF (NONE/RARE); Urine Culture Indicated YES
[2023-12-05 14:36] LABS: Amphetamine Screen Urine NEGATIVE (NEGATIVE); Barbiturates Screen Urine NEGATIVE (NEGATIVE); Benzodiazepines Screen Urine NEGATIVE (NEGATIVE); Buprenorphine Screen Urine NEGATIVE (NEGATIVE); Cannabinoid Screen Urine NEGATIVE (NEGATIVE); Cocaine Screen Urine NEGATIVE (NEGATIVE); Methadone Screen Urine NEGATIVE (NEGATIVE); Methamphetamines Screen Urine NEGATIVE (NEGATIVE); Opiate Screen Urine NEGATIVE (NEGATIVE); Oxycodone Screen Urine NEGATIVE (NEGATIVE); Phencyclidine Screen Urine NEGATIVE (NEGATIVE); Tricyclic Antidepressant Urine NEGATIVE (NEGATIVE)
[2023-12-05] MEDS: 0.9 % SODIUM CHLORIDE 1,000 ML 125 ML IV ×2 (14:41→18:34)
[2023-12-05 15:03] LABS: Hemoglobin 13.3 g/dL (12.0-16.0); Mean Corpuscular HGB Conc 34.1 g/dL (29.9-35.2); Mean Corpuscular Hemoglobin 30.9 pg (26.7-34.0); Mean Corpuscular Volume 90.5 fL (81.0-99.0); Mean Platelet Volume 12.7 fL (9.5-13.5); Platelet Count 174 10^3/uL (150-450); Red Blood Count 4.31 10^6/uL (4.20-5.40); Red Cell Distribution Width 12.9 % (11.0-15.0); White Blood Count 9.4 10^3/uL (4.0-11.0)
[2023-12-05] MEDS: 0.9 % SODIUM CHLORIDE 1,000 ML 1000 ML IV (15:42)
[2023-12-05] MEDS: EPHEDRINE SULFATE 50 MG/ML VIAL IV (15:47)
[2023-12-05] MEDS: ROPIVACAINE HCL/PF 400 MG/200 ML PREMIX 6 MG EPIDURAL (15:56)
[2023-12-05] MEDS: OXYTOCIN/0.9 % SODIUM CHLORIDE 10 UNITS/500 ML PLAST..BAG 6 UNIT IV (17:59)
--- NOTE | 2023-12-05 18:51 | PC.NURSE ---
Vyas catheter inserted. Clear, pale yellow urine obtained.
--- NOTE | 2023-12-05 19:31 | W.PC.ACHO ---
Registration Status: ADM IN Primary Language: Colombian Preferred Language: Colombian Report given to Sameer Muhammad RN at 1915. Active Medications Generic Name Dose Route Start Last Admin Trade Name Freq PRN Reason Stop Dose Admin Carboprost Tromethamine 250 mcg 12/05/23 13:58 Carboprost Tromethamine 250 Mcg/Ml 1 Ml Vial IM 12/07/23 13:58 Q15M PRN Bleeding Celecoxib 20 mg 12/06/23 09:00 Citalopram Hydrobromide 20 Mg Tablet PO QD DENIS Diphenhydramine HCl 25 mg 12/05/23 14:20 Diphenhydramine Hcl 50 Mg/Ml (1ml) Vial IV 12/06/23 14:21 Q6H PRN Itching Ephedrine Sulfate 5 mg 12/05/23 14:20 12/05/23 15:47 Ephedrine Sulfate 50 Mg/Ml Vial IV 12/06/23 14:21 5 mg Q5M PRN Administration Blood Pressure - Low Fentanyl Citrate 100 mcg 12/05/23 14:20 Fentanyl Citrate/Pf 100 Mcg/2 Ml Vial EPIDURAL ONCE PRN epidural Fentanyl Citrate 100 mcg 12/05/23 14:20 Fentanyl Citrate/Pf 100 Mcg/2 Ml Vial EPIDURAL ONCE PRN epidural Sodium Chloride 1,000 mls @ 125 mls/hr 12/05/23 14:00 12/05/23 18:34 Sodium Chloride 0.9% 1,000 Ml IV 125 mls/hr .Q8H DENIS Administration Oxytocin/Sodium Chloride 20 units in 1,000 mls @ 125 mls/hr 12/05/23 15:00 Pitocin 20 Unit/1,000 Ml-Ns IV 12/05/23 22:59 Q8H DENIS Ropivacaine/Sodium Chloride 400 mg in 200 mls @ 6 mls/hr 12/05/23 15:00 12/05/23 15:56 Naropin 0.2% 400 Mg/200 Ml Bag EPIDURAL 6 mls/hr Q24H DENIS Administration Oxytocin/Sodium Chloride 10 units in 500 mls @ 6 mls/hr 12/05/23 17:30 12/05/23 17:59 Pitocin 10 Unit/500 Ml-Ns IV 2 milliunit/min CONT DENIS 6 mls/hr Administration Protocol 2 MILLIUNIT/MIN Levothyroxine Sodium 100 mcg 12/06/23 06:30 Levothyroxine Sodium 100 Mcg Tablet PO ACB DENIS Lidocaine 5 ml 12/05/23 14:20 Lidocaine Hcl 2% Pf 100 Mg/5 Ml Vial INJ 12/06/23 14:21 Q1H PRN Epidural Lidocaine 5 ml 12/05/23 14:53 Lidocaine Viscous 2% 15 Ml Solution TOPICAL ONCE PRN Pain Lidocaine 1 ml 12/05/23 14:53 Lidocaine Hcl 1% 200 Mg/20 Ml Mdv INJ ONCE PRN Pain Methylergonovine Maleate 0.2 mg 12/05/23 13:58 Methylergonovine Maleate 0.2 Mg/Ml Ampule IM 12/07/23 13:58 ONCE PRN Uterine Contractility/Contract Methylergonovine Maleate 0.2 mg 12/05/23 13:58 Methylergonovine Maleate 0.2 Mg Tablet PO 12/07/23 13:58 Q4H PRN Uterine Contractility/Contract Misoprostol 600 mcg 12/05/23 13:58 Misoprostol 100 Mcg Tablet PO 12/07/23 13:58 ONCE PRN Uterine Bleeding Misoprostol 800 mcg 12/05/23 13:58 Misoprostol 100 Mcg Tablet SL 12/07/23 13:58 ONCE PRN Uterine Bleeding Misoprostol 1,000 mcg 12/05/23 13:58 Misoprostol 100 Mcg Tablet IL 12/07/23 13:58 ONCE PRN Uterine Bleeding Naloxone HCl 0.4 mg 12/05/23 14:20 Naloxone Hcl 0.4 Mg/Ml Vial IV 12/06/23 14:21 ONCE PRN Respiratory Depression Ondansetron HCl 4 mg 12/05/23 13:58 Ondansetron Pf 4 Mg/2 Ml Vial IV Q6H PRN Nausea And Vomiting Ondansetron HCl 4 mg 12/05/23 13:58 Ondansetron 4 Mg Rapdis Tablet SL Q6H PRN Nausea And Vomiting Oxytocin 10 unit 12/05/23 13:58 Oxytocin 10 Unit/Ml Vial IM 12/07/23 13:58 ONCE PRN Bleeding Diet Category Date Time Status Regular Consistency Diet Diet 12/05/23 14:02 Active Consults Category Date Time Status Consult to Anesthesiology Routine Cons 12/05/23 Ordered IV Insertion/Site Date of IV Line Insertion [ 12/05/23 Short PIV (<1.75 in) 20g left Hand] IV Insertion Time [Short PIV ( 14:35 <1.75 in) 20g left Hand] Neurology Patient orientation (short person,place,time,situation list)
[2023-12-05] MEDS: OXYTOCIN/0.9 % SODIUM CHLORIDE 20 UNITS/1,000 ML PLAST..BAG 125 UNIT IV (21:20)
--- NOTE | 2023-12-05 21:26 | PM.OBPRCVD ---
Procedure Intrapartal events: None Induction method: none Delivery augmentation: rupture of membranes and pitocin Delivery monitor: external FHT and external uterine Route of delivery: Episiotomy Description: none L&D Laceration Description: none Anesthesia type: Epidural Disposition: floor Delivery date: 12/05/23 Gender: male presentation: vertex Placental delivery description: Spontaneous cord description: 3 Vessels and Nuchal Cord (times 1)
[2023-12-05] MEDS: BENZOCAINE/MENTHOL 85 GRAM SPRAY BOTTLE 1 APPLIC TOPICAL (23:53)
[2023-12-05] MEDS: IBUPROFEN 600 MG TABLET PO (23:53)
[2023-12-06 06:00] LABS: Basophils Absolute Auto 0.1 10^3/uL (0.0-0.1); Basophils Percent Auto 0.4 % (0.2-2.0); Eosinophils Absolute Auto 0.1 10^3/uL (0.0-0.7); Eosinophils Percent Auto 0.4 % (0.9-7.0); Hematocrit 33.9 % (36.0-48.0); Hemoglobin 11.5 g/dL (12.0-16.0); Immature Granulocytes Abs Auto 0.06 10^3/uL (0.00-0.03); Immature Granulocytes Pct Auto 0.4 % (0.0-0.5); Lymphocytes Absolute Auto 1.8 10^3/uL (1.2-3.8); Lymphocytes Percent Auto 12.8 % (20.5-60.0); Mean Corpuscular HGB Conc 33.9 g/dL (29.9-35.2); Mean Corpuscular Hemoglobin 31.5 pg (26.7-34.0); Mean Corpuscular Volume 92.9 fL (81.0-99.0); Monocytes Absolute Auto 0.7 10^3/uL (0.3-0.8); Monocytes Percent Auto 5.3 % (1.7-12.0); Neutrophils Absolute Auto 11.1 10^3/uL (1.4-6.5); Neutrophils Percent Auto 80.7 % (43.0-75.0); Platelet Count 167 10^3/uL (150-450); Red Blood Count 3.65 10^6/uL (4.20-5.40); Red Cell Distribution Width 13.1 % (11.0-15.0); White Blood Count 13.8 10^3/uL (4.0-11.0)
[2023-12-06] MEDS: LEVOTHYROXINE SODIUM 100 MCG TABLET PO (07:24)
[2023-12-06] MEDS: IBUPROFEN 600 MG TABLET PO ×3 (07:40→22:47)
[2023-12-06 07:41] VITALS: BP 112/74; PULSE 57
--- NOTE | 2023-12-06 09:25 | PM.OBPN ---
OB - PN: Subj Subjective Patient comments: no complaints [place] status: doing well and well [place] feeding status: exclusively Exam Constitutional Vital Signs, click to edit/add: Last Vital Signs Temp 97.6 F 12/05/23 23:47 Pulse 57 L 12/06/23 07:41 Resp 18 12/05/23 23:47 BP 112/74 12/06/23 07:41 O2 Del Method Room Air 12/05/23 23:47 Documenting provider has reviewed patient's vital signs: yes Common normals: no apparent distress Orientation/consciousness: Yes awake, Yes oriented to person, Yes oriented to place and Yes oriented to time HENMT Common normals: normocephalic Eye Common normals: EOMs intact bilaterally General eye: normal appearance of both eyes Neck & C-Spine Common normals: full ROM and no lymphadenopathy General: normal visual inspection Lymph Lymphatic: no lymphadenopathy noted Chest Common normals: inspection of chest normal Respiratory Common normals: normal respiratory effort Cardio Common normals: regular rate and regular rhythm Rate: regular rate Rhythm: regular rhythm GI Common normals: Normal to inspection, nondistended, normoactive bowel sounds present Palpation: soft Common normals: no CVA tenderness External Female Exam: normal appearance of the urethra Back & Pelvis Common normals: no CVA tenderness Extremity Common normals: normal to inspection General: normal exam except as noted Neuro Common normals: oriented x3 Psych Common normals: mental status grossly normal Results Labs Labs: Short CBC 12/05/23 12/06/23 Range/Units 14:39 05:42 WBC 9.4 13.8 H (4.0-11.0) 10^3/uL Hgb 13.3 11.5 L (12.0-16.0) g/dL Hct 39.0 33.9 L (36.0-48.0) % Plt Count 174 167 (150-450) 10^3/uL Urine 12/05/23 Range/Units 13:20 Urine Color Lt. yellow (YELLOW) Urine Clarity Clear (CLEAR) Urine pH 7.5 (5.0-9.0) Ur Specific [place] 1.010 (1.005-1.025) Urine Protein Negative (NEG/TRACE) mg/dL Urine Glucose (UA) Negative (NEGATIVE) mg/dL Urinary Catheter Management Urinary Catheter Management Urethral: Cath placed during this visit: yes Urethral indwelling: No Insertion date: 12/05/23 Insertion time: 18:05 OB - PN: A/P Plan - Vaginal Delivery Plan: routine care Time Spent with Patient Time: Total time spent is greater than 50% in coordination of care (as documented) at patient's floor/unit and/or counseling patient: Total time spent with greater than 50% in coordination of care (as documented) at patient's floor/unit and/or counseling patient: less than 15 minutes
[2023-12-06] MEDS: CITALOPRAM HYDROBROMIDE 20 MG TABLET PO (09:30)
[2023-12-06] MEDS: DOCUSATE SODIUM 100 MG CAPSULE PO ×2 (09:30→21:02)
[2023-12-06] MEDS: LEVOTHYROXINE SODIUM 25 MCG TABLET PO (09:57)
[2023-12-06 16:24] VITALS: BP 106/65; PULSE 62
[2023-12-06 20:53] VITALS: BP 115/71; PULSE 68; RESP 16; TEMP 36.3
[2023-12-06] MEDS: ACETAMINOPHEN 325 MG TABLET 650 MG PO (21:05)
[2023-12-07 03:27] VITALS: BP 113/75; PULSE 57
[2023-12-07 03:30] VITALS: BP 113/75; PULSE 57; RESP 16; TEMP 36.5
[2023-12-07] MEDS: ACETAMINOPHEN 325 MG TABLET 650 MG PO (03:30)
[2023-12-07] MEDS: IBUPROFEN 600 MG TABLET PO (06:10)
[2023-12-07] MEDS: LEVOTHYROXINE SODIUM 125 MCG TABLET PO (06:10)
[2023-12-07 07:56] VITALS: BP 104/66; PULSE 60
[2023-12-07 08:00] VITALS: RESP 16; TEMP 36.7
[2023-12-07] MEDS: DOCUSATE SODIUM 100 MG CAPSULE PO (08:38)
[2023-12-07] MEDS: CITALOPRAM HYDROBROMIDE 20 MG TABLET PO (08:38)
--- NOTE | 2023-12-07 09:55 | PM.OBPN ---
OB - PN: Subj Subjective Patient comments: no complaints and pain well controlled [place] status: doing well Exam Constitutional Vital Signs, click to edit/add: Last Vital Signs Temp 98.1 F 12/07/23 08:00 Pulse 60 12/07/23 07:56 Resp 16 12/07/23 08:00 BP 104/66 12/07/23 07:56 O2 Del Method Room Air 12/07/23 08:00 Documenting provider has reviewed patient's vital signs: yes Common normals: no apparent distress Respiratory Common normals: normal respiratory effort and clear to auscultation bilaterally Cardio Common normals: regular rate and regular rhythm GI Common normals: Normal to inspection, nondistended, normoactive bowel sounds present Extremity Common normals: no clubbing, cyanosis or edema and no calf tenderness Urinary Catheter Management Urinary Catheter Management Urethral: Cath placed during this visit: yes Urethral indwelling: No Insertion date: 12/05/23 Insertion time: 18:05 OB - PN: A/P Plan - Vaginal Delivery day: 1 Plan: routine care, discharge home and follow up 6 weeks Time Spent with Patient Time: Total time spent is greater than 50% in coordination of care (as documented) at patient's floor/unit and/or counseling patient: Total time spent with greater than 50% in coordination of care (as documented) at patient's floor/unit and/or counseling patient: less than 15 minutes
== END 2023-12-07 13:35 | disposition home or self-care (01) | DRG 560 ==
PROVIDERS: Admitting Provider Obstetrics & Gynecology; Visit Provider Obstetrics & Gynecology
DX: O99.284 Endocrine, nutritional and metabolic diseases complicating childbirth (principal); E03.9 Hypothyroidism, unspecified; Z3A.37 37 weeks gestation of pregnancy; Z37.0 Single live birth; Z90.49 Acquired absence of other specified parts of digestive tract; O36.63X0 Maternal care for excessive fetal growth, third trimester, not applicable or unspecified
CPT/HCPCS: 36415; 59050; 59410; 76818; 80307; 81001; 85025; 85027; 86850; 86900; 86901; 87086; 96365; 96366; 96375; 96376; J2795

== ENCOUNTER 2024-01-28 13:05 | Outpatient (OUT) | payer OTHER, SELFPAY ==
--- NOTE | 2024-01-28 14:05 | XR_ITS ---
The [address] [address] Patient Name: DEANDRA MOCTEZUMA MRN: [id number] date: 1995 Sex: F Assigned Patient Location: [facility] Current Patient Location: [facility] Accession/Order Number: [id number] Exam Date: 01/28/2024 14:10 Report Date: 01/28/2024 15:14 At the request of: JOSSE PURVIS Procedure: XR chest 2V EXAM: XR chest 2V HISTORY: Preop exam COMPARISON: None. TECHNIQUE: Upright PA and lateral chest x-ray FINDINGS: The heart is not enlarged and the vasculature is not distended. No acute infiltrate, effusion or pneumothorax is identified. The osseous structures are grossly intact. Surgical clips are seen in the upper abdomen. XR/XR chest 2V IMPRESSION: No acute infiltrate or evidence of cardiac decompensation. Electronically authenticated by: GRACIE CAMACHO Date: 01/28/2024 15:14
== END 2024-01-28 13:06 | disposition home or self-care (01) ==
LOC: PST 13:05
PROVIDERS: Visit Provider Obstetrics & Gynecology
DX: Z01.810 Encounter for preprocedural cardiovascular examination (principal); Z30.2 Encounter for sterilization
CPT/HCPCS: 71046

== ENCOUNTER 2024-02-08 07:57 | Day surgery (SDC) | payer OTHER, SELFPAY ==
[2024-01-28 13:54] VITALS: BP 113/73; PULSE 67; TEMP 36.5; O2SAT 98; BMI 34.4
[2024-02-08] VITALS (11 sets, daily range): BP systolic 116–139; BP diastolic 61–88; PULSE 86–96; TEMP 36.3; O2SAT 93–98; BMI 34.7
[2024-02-08 08:11] LABS: Basophils Absolute Auto 0.1 10^3/uL (0.0-0.1); Basophils Percent Auto 0.7 % (0.2-2.0); Eosinophils Absolute Auto 0.1 10^3/uL (0.0-0.7); Eosinophils Percent Auto 1.6 % (0.9-7.0); Hematocrit 41.6 % (36.0-48.0); Hemoglobin 13.7 g/dL (12.0-16.0); Immature Granulocytes Abs Auto 0.03 10^3/uL (0.00-0.03); Immature Granulocytes Pct Auto 0.4 % (0.0-0.5); Lymphocytes Absolute Auto 1.8 10^3/uL (1.2-3.8); Lymphocytes Percent Auto 23.8 % (20.5-60.0); Mean Corpuscular HGB Conc 32.9 g/dL (29.9-35.2); Mean Corpuscular Hemoglobin 30.3 pg (26.7-34.0); Mean Platelet Volume 9.5 fL (9.5-13.5); Monocytes Absolute Auto 0.6 10^3/uL (0.3-0.8); Monocytes Percent Auto 7.9 % (1.7-12.0); Neutrophils Absolute Auto 4.8 10^3/uL (1.4-6.5); Neutrophils Percent Auto 65.6 % (43.0-75.0); Platelet Count 279 10^3/uL (150-450); Red Blood Count 4.52 10^6/uL (4.20-5.40); Red Cell Distribution Width 11.9 % (11.0-15.0); White Blood Count 7.4 10^3/uL (4.0-11.0)
[2024-02-08] MEDS: LACTATED RINGER'S SOLUTION 1,000 ML 50 ML IV ×2 (08:26→11:28)
[2024-02-08 08:37] LABS: HCG Quantitative <1 mIU/mL
--- NOTE | 2024-02-08 11:10 | P.ON_ITS ---
Brief Operative Note Date of procedure: 02/08/24 Pre-op diagnosis general: desires permanent sterilization, multiparity Post-op diagnosis: same as pre-op Procedure: NAME OF PROCEDURE: robotic assisted bilateral laparoscopic salpingectomy PROCEDURE: The patient was taken back to the Operating Room where she was given general anesthesia without difficulty. She was then prepped and draped in the normal sterile fashion after being placed in a dorsal lithotomy position. A wet sponge stick was placed into the patient's vagina. Attention was then turned to the patient's abdomen, where a scalpel was used to make a small infraumbilical incision. The S retractors were then used to dissect the underlying layers until the fascia could be seen. The fascia was then grasped with Ping clamps and tented up. A knife was then used to make a small incision to the fascia. The muscle was identified, at that time two sutures of #0 Vicryl on a GI needle was then used and placed through the fascia. the peritoneum was then identified and entered bluntly. The 10-4 Shekhar was then placed into the patient's abdomen. This was confirmed with direct visualization of the bowel, using the laparoscope. The patient's abdomen was then insufflated using approximately 4 liters of CO2 gas. Survey of the patient's abdomen demonstrated ovaries were normal in appearance as well as both tubes and uterus. A second and third rt and lt lateral robotic ports which were 8 mm in size, was then placed after the skin incision was made under direct visualization . the robotic arms were engaged. The patient's tube on the patient's right side was identified and tented up using a grasper, the ligasure apparatus was then used to come across the mesosalpingx from the fimbriated end to the insertion site at the uterus, the tube was then amputated and removed in its entirety. This was done on the contralateral side. The tubes were the removed from the patients abdomen. Excellent hemostasis was noted. The lateral ports were then moved under direct visualization with excellent hemostasis. All instruments were removed from the patient's abdomen. The fascia was closed using the #0 Vicryl on GI needle. The skin was closed using 4-0 Vicryl subcuticularly. All instruments were removed from the patient's vagina as well. The patient was taken out of the dorsal lithotomy position and placed in the supine position and taken to recovery in s table condition. Sponge, lap and needle counts were correct x2. Anesthesia: BEATAA Surgeon: Rashaun Amador Filtration Operator: Keesha Mantilla Estimated blood loss (mL): 5 Pathology: other (tubes) Condition: stable Disposition: PACU Urinary Catheter Management Urinary Catheter Management Urethral: Cath placed during this visit: no
[2024-02-08] MEDS: HYDROMORPHONE HCL 0.5 MG/0.5 ML SYRINGE IV ×2 (12:06→12:16)
[2024-02-08] MEDS: PROMETHAZINE HCL 25 MG TABLET PO (12:08)
--- NOTE | 2024-02-08 12:19 | PC.NURSE ---
Medicated as ordered for pain
--- NOTE | 2024-02-08 12:20 | PC.NURSE ---
c/o nausea; no emesis; medicated with oral Phenergan as ordered
--- NOTE | 2024-02-08 12:25 | PC.NURSE ---
Medicated with IV Dilaudid as ordered; continues to c/o nausea; no emesis; alcohol pad held up to nares
--- NOTE | 2024-02-08 12:31 | PC.NURSE ---
Continues to c/o nausea; no emesis
--- NOTE | 2024-02-08 12:34 | PC.NURSE ---
Peripad dry; no c/o nausea at this time
--- NOTE | 2024-02-08 12:51 | PC.NURSE ---
No furhter c/o nausea; peripad dry
[2024-02-08] MEDS: HYDROCODONE/ACET 5-325 MG TABLET 1 TAB PO (13:17)
== END 2024-02-08 13:36 | disposition home or self-care (01) ==
PROVIDERS: Visit Provider Obstetrics & Gynecology
PROC: (CPT 840; principal; 2024-02-08 09:40)
DX: Z30.2 Encounter for sterilization (principal); Z90.49 Acquired absence of other specified parts of digestive tract; E03.9 Hypothyroidism, unspecified
CPT/HCPCS: 58661; 36415; 84702; 85025; 88302; 99999; J1094; J1170; J2704

== ENCOUNTER 2024-10-02 07:17 | Outpatient (OUT) | payer OTHER, SELFPAY ==
--- NOTE | 2024-10-02 07:19 | US_ITS ---
The [address] [address] Patient Name: DEANDRA MOCTEZUMA MRN: [id number] date: 1995 Sex: F Assigned Patient Location: Current Patient Location: Accession/Order Number: [id number] Exam Date: 10/02/2024 07:22 Report Date: 10/02/2024 09:42 At the request of: JOSSE PURVIS Procedure: US pelvis w/ transvaginal EXAMINATION: US pelvis w/ transvaginal HISTORY: Heavy cycles COMPARISON: No relevant comparison available. FINDINGS: The uterus is normal in size, contour and echotexture measuring 8.8 x 5.5 x 4.9 cm. No focal myometrial mass. The endometrium measures 1.4 cm, correlate with the menstrual cycle The right ovary is normal measuring 4.6 x 2.9 x 2.4 cm. Normal color and Doppler flow The left ovary is normal measuring 2.0 x 2.0 x 1.9 cm. Normal color and Doppler flow No free fluid US/US pelvis w/ transvaginal IMPRESSION: Normal exam. Electronically authenticated by: MERNA SILVA Date: 10/02/2024 09:42
--- OUTSIDE RECORDS SUMMARY | 2024-10-02 07:20 | XMS_ITS | CCD ---
Author Organization [facility] Care Team Providers Care Video Game Creator Name Role Phone NKECHI TORRES Unavailable Unavaila BAKARI Liriano Attending Unavailable THANG MILLAN Primary Care Unavailable No, Physician Primary Care Provider Unavailerum BRODY, PHYSICIAN Primary Care Unavailable REGINE CHOW Admitting Unavailable REGINE CHOW Attending Unavailable Thang Millan Primary Care Provider [phone] Unavailable Primary Care Provider UnavailTHANG Mauro Primary Care Physician Luis Carlos Jung Primary Care Physician Rashaun AMADOR Primary Care Physician NONE, XXXX Primary Care Physician [employer], GENERIC Primary Care Physician Unavailab le Unavailable Primary Care Provider UnavailDODIE Peterson Attending Unavailable RASHAUN AMADOR Attending Unavailable RASHAUN AMADOR Attending Unavailable RASHAUN AMADOR Attending Unavailable RASHAUN AMADOR Attending Unavailable RASHAUN AMADOR Attending Unavailable PERRY, RASHAUN Attending Unavailable PERRY, RASHAUN Attending Unavailable DODIE MILLER Attending Unavailable [facility] Provider Rashaun Amador Attending Provider [facility] Unavailable Rashaun Amador Attending Unavailable Rashaun Amador Admitting Unavailable ZORAN MYRICK Admitting Unavailable ZORAN MYRICK Attending Unavailable Luis Carlos Jung Admitting Unavailable Luis Carlos Jung Attending Unavailable Luis Carlos Jung Admitting Unavailable Luis Carlos Jung Attending Unavailable Gopi Rodriguez Attending Unavailable Roverto Vaz V. Attending UnavailKristian Garvin Attending Unavailable Laura Noel Attending Unavailable Kristian Guillermo Attending Unavailable DO Julia Haywood Attending UnavailRashaun Sandoval Admitting Unavailable Rashaun AMADOR Attending Unavailable Roverto Vaz V. Admitting UnavailRoverto Zepeda V. Attending UnavailZORAN Fuentes Admitting Unavailable ZORAN MYRICK Attending Unavailable Luis Carlos Jung Admitting Unavailable Luis Carlos Jung Attending Unavailable ZORAN MYRICK Attending Unavailable ZORAN MYRICK Admitting Unavailable Allergies Allergy Classification Reported Allergen(s) Allergy Type Date of Onset Reaction(s) Facility (20 sources) amoxicillin; Translations: [AMOXICILLIN] Drug Allergy 7 [facility] Repository (20 sources) penicillin; Translations: [PENICILLIN] Drug Allergy 7 [facility] Repository (13 sources) Penicillins; Translations: [PENICILLINS] Propensity to adverse reactions to drug 0 [place], [place] (8 sources) Penicillin G procaine Allergy to substance 3 [facility] (2 sources) Penicillin; Translations: [penicillin G] Drug Allergy 1 [facility] Medications Current Medications Medication Drug Class(es) Dates [...] 15 cap(s), Refills(s) 0, Pharmacy: [facility], 162.6, cm, 05/21/23 20:50:00 EDT, Height/Length Dosing, 75.3, kg, 05/21/23 20:50:00 EDT, Weight Dosing Start Date: 05/21/23 Stop Date: 05/26/23 Status: Ordered Start: 08-18-2022 End: 08-25-2022 take 1 capsule by mouth four times daily Keflex 500 mg Cap 500 mg = 1 cap(s), Oral, QID, X 7 day(s), # 28 cap(s), Refills(s) 0, Pharmacy: [facility] 1986, 162.5, cm, 08/18/22 4:15:00 EDT, Height/Length Dosing, 80, kg, 08/18/22 4:15:00 EDT, Weight Dosing Start Date: 08/18/22 Stop Date: 08/25/22 Status: Ordered Start: 07-17-2022 End: 07-22-2022 take 1 capsule by mouth every twelve hours Keflex 500 mg Cap 500 mg = 1 cap(s), Oral, q12hr, X 5 day(s), # 10 cap(s), Refills(s) 0, Pharmacy: [facility] 1986, 162.5, cm, 07/17/22 9:09:00 EDT, Height/Length Dosing, 80, kg, 07/17/22 9:09:00 EDT, Weight Dosing Start Date: 07/17/22 Stop Date: 07/22/22 Status: Ordered Start: 04-02-2022 End: 04-09-2022 take 1 capsule by mouth four times daily Keflex 500 mg Cap 500 mg = 1 cap(s), Oral, QID, X 7 day(s), # 28 cap(s), Refills(s) 0, Pharmacy: [facility], 160, cm, 04/02/22 6:28:00 EDT, Height/Length Dosing, 69.1, kg, 04/02/22 6:35:00 EDT, Weight Dosing Start Date: 04/02/22 Stop Date: 04/09/22 Status: Ordered cimetidine 300 mg oral tablet (3 sources) Histamine-2 Receptor Antagonist Start: 04-02-2022 cimetidine 300 mg oral tablet Refills(s) 0 Start Date: 04/02/22 Status: Ordered citalopram 20 mg oral tablet (8 sources) Serotonin Reuptake Inhibitor Start: 11-15-2023 End: 12-16-2024 take 1 tablet by mouth once daily citalopram (CeleXA) 20 MG tablet Indications: Anxiety, generalized (CMS/HCC) Take 1 tablet (20 mg) by mouth Daily 360 tablet 12/17/2023 12/16/2024 Active Colace (3 sources) Start: 08-18-2023 Colace Refills(s) 0 Start Date: 08/18/23 Status: Ordered docusate sodium 50 mg / sennosides, assisted 8.6 mg oral tablet (6 sources) senna-docusate (Colace 2-IN-1) 8.6-50 MG tablet famotidine 20 mg oral tablet (6 sources) Histamine-2 Receptor Antagonist Start: 05-21-2023 take 1 tablet by mouth once daily Pepcid 20 mg Tab 20 mg = 1 tab(s), Oral, Daily, # 14 tab(s), Refills(s) 0, Pharmacy: [facility] 1986, 162.6, cm, 05/21/23 20:50:00 EDT, Height/Length Dosing, 75.3, kg, 05/21/23 20:50:00 EDT, Weight Dosing Start Date: 05/21/23 Status: Ordered ibuprofen 600 mg oral tablet (11 sources) Nonsteroidal Anti-inflammatory Drug Start: 09-27-2022 take 1 tablet by mouth every six hours ibuprofen 600 mg Tab 600 mg = 1 tab(s), Oral, q6hr, # 15 tab(s), Refills(s) 0, Pharmacy: [facility], 162.5, cm, 09/24/22 21:51:00 EST, [...] the morning. Take before meals. 90 tablet 12/17/2023 Active Start: 01-07-2023 End: 11-27-2023 take 1 [...] 0 Start Date: 03/03/22 Status: Ordered Start: 04-10-2020 End: 10-18-2020 take 50 ug by mouth once daily Levothyroxine Discontin ued 50 MCG PO Daily April 10, 2020 12:00am October 18, 2020 8:00am magnesium oxide 400 mg oral tablet (5 [...] dizziness, # 15 tab(s), Refills(s) 0, Pharmacy: [facility], 163, cm, 11/30/21 7:18:00 EST, Height/Length Dosing, 63, kg, 11/30/21 7:18:00 EST, Weight Dosing Start Date: 11/30/21 Status: Ordered Start: 10-14-2020 End: 01-30-2021 take 1 tablet by mouth three times daily as needed for dizziness meclizine (ANTIVERT) 25 mg tablet Take 1 (one) tablet (25 mg total) by mouth 3 (three) times a day as needed for dizziness . 30 tablet 0 10/14/2020 11/13/2020 Active Start: 10-14-2020 meclizine (ANT IVERT) tablet 25 mg metoclopramide 5 mg oral tablet (2 sources) Dopamine-2 Receptor Antagonist Start: 10-18-2020 take 5 mg by mouth at bedtime Metoclopramide Hcl Active 5 MG PO before meals and at bedtime October 18, 2020 1:00am take 1 tablet by kenn th four times daily at mealtime metoclopramide (REGLAN) 5 MG tablet Take 5 mg by mouth 4 (four) times a day with meals and nightly . 0 Active naproxen 500 mg oral tablet (2 sources) Nonsteroidal Anti-inflammatory Drug Start: 04-10-2020 End: 10-18-2020 take 1 tablet by mouth twice daily at mealtime naproxen (NAPROSYN) 500 MG tablet Take 1 tablet by mouth 2 times daily (with meals) for 30 doses 60 tablet 0 08/09/2020 08/24/2020 Active ondansetron 4 mg oral tablet (7 sources) Serotonin-3 Receptor Antagonist Start: 09-05-2022 take 1 tablet by mouth every eight hours as needed for nausea Zofran 4 mg Tab 4 mg = 1 tab(s), Oral, q8hr, PRN Nausea/Vomiting , # 12 tab(s), Refills(s) 0, Pharmacy: [facility], 163, cm, 09/05/22 20:14:00 EST, Height/Length Dosing, 82, kg, 09/05/22 20:14:00 EST, Weight Dosing Start Date: 09/05/22 Status: Ordered Start: 10-18-2020 take 4 mg by mouth e very eight hours Ondansetron Active 4 MG PO Q8H October 18, 2020 1:00am take 1 tablet by kenn th every [...] 6 tab(s), Refills(s) 0, Pharmacy: [facility], 163, cm, 06/28/23 10:39:00 EDT, Height/Length Dosing, 74.8, kg, 06/28/23 10:39:00 EDT, Weight Dosing Start Date: 06/28/23 Stop Date: 06/30/23 Status: Ordered Multivitamins (20 sources) Start: 03-03-2022 take 1 tablet by mouth once daily Multivitamins 1 tab(s), Oral, Daily, Refill(s) 0 Start Date: 03/03/22 Status: Ordered MV-Min-Fe Fum-FA-DHA ( 1 PO) (8 sources) MV-Min- Fe Fum-FA-DHA ( 1 PO) Take 1 each by mouth in the morning. Active MV-Min- Fe Fum-FA-DHA ( 1 PO) Take [...] venlafaxine 37.5 mg extended release oral capsule (7 sources) Serotonin and Norepinephrine Reuptake Inhibitor Start: 12-06-2022 End: 11-27-2023 take 1 capsule by mouth once daily at mealtime venlafaxine XR (Effexor XR) 37.5 MG 24 hr capsule TAKE 1 CAPSULE BY MOUTH ONCE DAILY WITH FOOD 0 12/06/2022 11/27/2023 Discontinued (Therapy completed) Start: 10-18-2020 take 75 mg by mouth once daily Venlafaxine Active 75 MG PO Daily October 18, 2020 1:00am take 1 tablet by kenn th twice daily venlafaxine (EFFEXOR) 75 MG tablet Take 75 mg by mouth 2 (two) times a day . 0 Active Zofran ODT 4 mg Tab-Dis (6 sources) Start: 05-21-2023 take 1 tablet by mouth every eight hours Zofran ODT 4 mg Tab-Dis 4 mg = 1 tab(s), Oral, q8hr, # 12 tab(s), Refills(s) 0, Pharmacy: [facility], 162.6, cm, 05/21/23 20:50:00 EDT, Height/Length Dosing, 75.3, kg, 05/21/23 20:50:00 EDT, Weight Dosing Start Date: 05/21/23 Status: Ordered Completed/Discontinued Medications Medication Drug Class(es) Dates Sig (Normalized) Sig (Original) acetaminophen 500 mg oral tablet (1 source) Start: 08-09-2020 End: 08-09-2020 acetaminophen (TYLENOL) tablet 1,000 mg cyclobenzaprine hydrochloride 10 mg oral tablet (1 source) Muscle Relaxant Start: 04-10-2020 End: 10-18-2020 take 10 mg by mouth three times daily Cyclobenzaprine Discontinued 10 MG PO Three times daily April 10, 2020 12:00am October 18, 2020 8:00am sprinkle DULoxetine 20 mg delayed release oral capsule (2 sources) Serotonin and Norepinephrine Reuptake Inhibitor Start: 04-10-2020 End: 10-18-2020 take 20 mg by mouth once daily Duloxetine Discontinued 20 MG PO Daily April 10, 2020 12:00am October 18, 2020 8:00am take 1 capsule by mouth once pooja ly DULoxetine (CYMBALTA) 20 MG extended release capsule Take 20 mg by mouth daily 0 Active 1 ml ketorolac tromethamine 15 mg/ml cartridge (1 source) Nonsteroidal Anti-inflammatory Drug, Cyclooxygenase Inhibitor Start: 08-09-2020 End: 08-09-2020 ketorolac (TORADOL) injection 15 mg omeprazole 20 mg delayed release oral capsule (2 sources) Proton Pump Inhibitor Start: 04-10-2020 End: 10-18-2020 take 20 mg by mouth once daily Omeprazole Discontinued 20 MG PO Daily April 10, 2020 12:00am October 18, 2020 8:01am take 1 capsule by mouth once pooja ly omeprazole (PRILOSEC) 10 MG delayed release capsule Take 10 mg by mouth daily 0 Active 2 ml orphenadrine citrate 30 mg/ml injection [...] disease) (20 sources) Bacterial meningitis 05-02-2016 Episodic Menstrual disorders (2 sources) Menorrhagia; Translations: [Excessive and frequent menstruation with regular cycle] 09-09-2024 Chronic Mood disorders (20 sources) Depressive disorder 09-22-2019 [...] of normal , unspecified, unspecified trimester] Onset: 04-26-2023 Episodic Other screening for suspected conditions (not [...] secondary to d ocumentation in Social History. Superficial injury; contusion (2 sources) Contusion, shoulder and upper arm, multiple sites; Translations: [Contusion of lower back] 09-26-2023 Episodic Thyroid disorders (2 sources) Acquired hypothyroidism; Translations: [Hypothyroidism, unspecified] 11-27-2023 Chronic Unclassified (1 source) Contusion of right knee; Translations: [Contusion of right knee, initial encounter] Unclassified (20 sources) Patient encounter status 07-06-2021 Unclassified (20 sources) Onset: 03-23-2022 Resolved: 09-25-2022 03-23-2022 Unclassified (8 sources) OB Reminders Onset: 07-17-2023 07-17-2023 Urinary [...] source) Cervicalgia; Translations: [Cervicalgia] Onset: 07-23-2017 Episodic Viral infection (1 source) Disease caused by 2019-nCoV; Translations: [COVID-19] Onset: 09-05-2022 Results Test Name Value Interpretation Reference Range Facility Physician Orderon 03-12-2024 Physician Order [id number]#1.00TIFF Normal [facility] T4 & TSHon 03-12-2024 TSH Qn 4.44 m[IU]/L Normal 0.34-5.60 [facility] Comment on above: Performed By: #### 1 [id number] #### [facility] [address] [place] [address] T4 [Mass/Vol] 5.7 microgram/dL Normal 4.6-9.1 [facility] Comment on above: Performed By: #### 1 [id number] #### [facility] [address] [place] [address] Elvis 02-08-2024 L Specimen: [id number] Received: 02/11/24 Status: DARBY Ernst Num: [id number] Spec Type: Surgical Subm Dr: Rashaun Amador Tissues: A Fallopian Tube - Sterilization (FT BILATERAL) Procedures: HE/2, Gross/Micro L2 Age/ Patient Sex Location Account Attending Physician Susan Bro 28/F LABELL [id number] Rashaun Amador SPEC NUM: [id number] RECD: 02/11/24 STATUS: DARBY ERNST NUM: [id number] MARIA ANTONIA: [birth year][address]: Rashaun Amador ENTERED: 02/11/[address]: Jessica,Lab SPEC TYPE: Surgical DEPT: CLAUDINE MAURER ORDERED: HE/2, Gross/Micro L2 ORDERED: HE/2, Gross/Micro L2 Pathological Diagnosis Bilateral fallopian tubes, bilateral salpingectomy: -Bilateral fimbriated fallopian tubes without significant histopathological changes, except 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 Tube #1 measures 9.4 cm in length and ranges from 0.5 to 0.6 cm in diameter. Tube #2 measures 6.2 cm in length and ranges from 0.4 to 0.5 cm in length and contains a scant amount of fimbria present. The serosa covering each tube is shannon-pink and unremarkable. Sectioning into each tube reveals an intact lumen lined by unremarkable shannon mucosa. Jewelry Cutter sections are submitted in A1 (tube #1) and A2 (tube #2). Clinical history: Request for sterilization TW CPT Codes 78109 Specimen: [id number] Received: 02/11/24 Status: DARBY Ernst Num: [id number] Spec Type: Surgical Subm Dr: Rashaun Amador Tissues: A Fallopian Tube - Sterilization (FT BILATERAL) Procedures: HE/2, Gross/Micro L2 Patient: Susan Bro [id number] (Continued) Signed (signature on file) Alejandra Gonzalez MD 02/12/241923 Normal [facility] ALL THYROID STIM HORMONEon 0 11-27-2023 TSH Qn 2.029 m[IU]/L [facility] Urinalysis macro (dipstick) panel (U)on 11-27-2023 Bilirubin, UA Negative Negative - 4(70) +++ mg/dL [facility] Blood, UA Negative Negative - 50 Tod/mcL [facility] Clarity, UA Clear [facility] Color, UA Yellow [facility] Glucose, UA Negative Negative - 1999(110) ++++ mg/dL [facility] Interpretation and review of laboratory results Abnormal [facility] Ketones, UA Positive Negative - 160(16) ++++ mg/dL [facility] Leukocytes, UA Positive Negative - 500+++ Rosemarie/mcL [facility] Nitrite, UA Negative Negative - Positive [facility] pH, UA 6.5 5 - 9 [facility] Protein, UA Trace Negative - 1999(20) ++++ mg/dL [facility] Spec Grav, UA 1.025 1 - 1.03 [facility] Urobilinogen, UA 1.0 0.2 - 12 mg/dL [facility] Urinalysis macro (dipstick) panel (U)on 11-20-2023 Bilirubin, UA Negative Negative - 4(70) +++ mg/dL [facility] Blood, UA Negative Negative - 50 Tod/mcL [facility] Clarity, UA Clear [facility] Color, UA Yellow [facility] Glucose, UA Negative Negative - 1999(110) ++++ mg/dL [facility] Interpretation and review of laboratory results Normal [facility] Ketones, UA Negative Negative - 160(16) ++++ mg/dL [facility] Leukocytes, UA Negative Negative - 500+++ Rosemarie/mcL [facility] Nitrite, UA Negative Negative - Positive [facility] pH, UA 7.0 5 - 9 [facility] Protein, UA Negative Negative - 2000(20) ++++ mg/dL [facility] Spec Grav, UA 1.025 1 - 1.03 [facility] Urobilinogen, UA 1.0 0.2 - 12 mg/dL [facility] C Urineon 11-06-2023 Bacteria identified Cx Nom (U) Microbiology PROCEDURE: Urine Culture [R1] SOURCE: U CleanCatch BODY SITE: COLLECTED DATE/TIME: 11/04/2023 08:05 EST RECEIVED DATE/TIME: 11/04/2023 15:53 EST START DATE/TIME: 11/04/2023 15:53 EST FREE TEXT SOURCE: Rashaun AMADOR DO, DO, Corey R FINAL REPORTS Final Report [] Verified Date/Time: 11/06/2023 11:59 EST 3,000 cfu/ml Mixed skin contaminants Performing Locations R1: This test was performed at: [facility], [address] [place] [address], [facility] , , [facility] Comment on above: Performed By: #### 2 [id number] #### [facility] [address] [place] [address] Nursing Assessmenton 024 Nursing Assessment [id number]#1.00TIFF [facility] Consent for Treatmenton 10-16 Consent for Treatment [id number]#1.00TIFF [facility] Discharge Instructionson Discharge Instructions [id number]#1.00TIFF [facility] Inpatient Clinical Summaryon 11-04-2023 Inpatient Clinical Summary [address] [address] Clinical Summary Person Information Name: SUSAN BRO [place] Age: 28 Years : 1995 Sex: Female PCP: MELINA MAHONEY Marital Status: Single Phone: [phone] Race: White Ethnicity: Non- or Language: Slovenian Visit Id: Visit Reason: Speciality: Acuity: Obs Enc Type: OB Triage Med Service: Obstetrics Arrival: 11/04/2023 07:52:14 Discharge: 11/04/2023 09:55:00 Dispo Type: Home (Routine DC) Address: [address] [place] [id number] Provider Notes: Diagnosis: Problems Active (08/18/2023) Pre-employment examination [place] Smoker 16-APR-2014 12:37:00<$> Smoking Status: Former Smoker Functional Status: Sensory Deficits: History of Falls: Mobility Assistance Prior to Admission: ADLs: Current Level of Assistance for Self-Care/Mobility: Cognitive Status: Allergies penicillin (Hives) amoxicillin (Hives) Laboratory or Other Results This Visit (last charted value for your 11/04/2023 visit) Urinalysis 11/04/2023 8:05 AM UA Bacteria: Trace /HPF UA Bili: Negative UA Color: Yellow UA Glucose: Negative UA Ketones: Negative UA Leuk Est: 1+ UA Mucous: Trace UA Nitrite: Negative UA Protein: Negative UA RBC: 0-3 /HPF UA Squam Epithelial: 5-8 /HPF UA Urobilinogen: 0.2 EU/dL -- Normal range between ( 0.0 and 1.0 ) UA WBC: 6-15 /HPF UA Spec Desc: Clean Catch UA Blood: Negative UA Clarity: SL CLOUDY UA pH: 7.0 -- Normal range between ( 5.0 and 9.0 ) UA Spec Grav: 1.015 -- Normal range between ( 1.005 and 1.030 ) Measurements: Height: 162.5 cm Weight: 82.3 kg Blood Pressure: 106 mmHg / 68 mmHg BMI: 31.17 kg/m2 Procedures No Procedures Documented Immunizations No Immunizations Documented This Visit Final Med List: levothyroxine (levothyroxine 125 mcg (0.125 mg) Tab) 1 Tablets By Mouth every day. multivitamin, ( Multivitamins) 1 Tablets By Mouth every day. Care Team Members: Attending Physician: Rashaun AMADOR DO Consulting Physician: Referring Physician: Follow up: With: Address: [facility] [address] [place] [address] , [place] [address] Business (1) In 2 days 11/06/2023 Comments: Call for any problems. Appointment has already been scheduled Call physician if symptoms worsen Please call if you need to reschedule Return for contractions closer, longer, harder Return for decreased movement Return if ruptured membranes or vaginal bleeding Patient Education Information: Normal [facility] Inpatient Patient Summaryon 11-04-2023 Inpatient Patient Summary [address] [address] Patient Discharge Instructions PERSON INFORMATION Name: SUSAN BRO Date of : 1995 Current Date: 11/04/2023 10:02:50 PHYSICIANS Admitting Physician: Rashaun AMADOR DO Primary Care Physician: MELINA MAHONEY PCP Phone Number: Comment: Discharge Diagnosis: Condition at Discharge: Stable SUSAN BRO has been given the following list of follow-up instructions, prescriptions, and patient education materials: PATIENT FOLLOW-UP INFORMATION Diet: Activity: Wound Care Instructions: Remove Your Dressing IN: Days Call Your Doctor For: IF UNABLE TO CONTACT YOUR PHYSICIAN AND YOU FEEL IT IS AN EMERGENCY, GO TO THE NEAREST EMERGENCY ROOM OR CALL 911 Home Treatment: Devices/Equipment: Special Services: Additional Instructions: Physician to provide the following pending test results: None Follow up: With: Address: When: [facility], [address] [place] [address] , [place] [address] [place] [facility] (1) In 2 days 11/06/2023 Comments: Call for any problems. Appointment has already been scheduled Call physician if symptoms worsen Please call if you need to reschedule Return for contractions closer, longer, harder Return for decreased movement Return if ruptured membranes or vaginal bleeding In the event that this physician does not participate in your insurance network, please consult with your insurance company to find a nearby participating provider. Comment: RHIANNA Campos VERONICA D, have received the attached patient education materials/instructions and have verbalized understanding. Patient Signature ____ Date Clinican/Nurse Signature Date MEDICATION LIST Medications to Continue Taking That Have Changed Other Medications START: levothyroxine (levothyroxine 125 mcg (0.125 mg) Tab) 1 Tablets By Mouth every day. Last Dose: Next Dose: STOP: levothyroxine (levothyroxine 50 mcg (0.05 mg) Tab) 1 Tablets By Mouth every day. Medications to Continue with No Changes Other Medications multivitamin, ( Multivitamins) 1 Tablets By Mouth every day. Last Dose: Next Dose: Pharmacy Information: [facility] PATIENT EDUCATION INFORMATION Instructions: Medication Leaflets: You may receive a survey from [employer] asking you to rate your care experience. Your feedback is important and will help us understand what we do well and how we can improve the quality of care we provide to you, your loved ones and our community. It?s an honor to serve you. Patient Portal You may access all of your results and other medical record information on our secure patient portal. If you are not signed up for this yet, please contact [employer] at [phone] to get signed up today. KIRAN Award Nomination The KIRAN (Diseases Attacking the Immune SYstem) Award is an international recognition program that honors and celebrates the skillful, compassionate care nurses provide every day. Anyone who experiences or observes amazing care being provided by a nurse is encouraged to submit a nomination. To nominate your nurse, use your smart phone to scan the QR code below. Thank you for choosing [facility] Normal [facility] Insurance Correspondence Off iceon 11-04-2023 Insurance Correspondence Office [id number]#[id number] Normal [facility] UA With Cult Reflexon 2023 Bacteria LM Ql (Urine sed) TRACE Normal Trace [facility] Comment on above: Performed By: #### 2 [id number] #### [facility] [address] [place] [address] Bilirubin Ql (U) Negative Normal Negative [facility] Comment on above: Performed By: #### 2 [id number] #### [facility] [address] [place] [address] Clarity (U) SL CLOUDY Invalid Interpretation Code [facility] Comment on above: Performed By: #### 2 [id number] #### [facility] [address] [place] [address] Color (U) YELLOW Normal [facility] Comment on above: Performed By: #### 2 566315, 90985641, 7488531, 2714145, 8308454, 5715539 #### [facility] [address] [place] [address] Epithelial cells.squamous LM.HPF (Urine sed) [#/Area] 5-8 Normal 0-2 [facility] Comment on above: Performed By: #### 2 863166, 15356981, 7163933, 7288692, 6363567, 1478077 #### [facility] [address] [place] [address] Glucose Test strip (U) [Mass/Vol] Negative Normal Negative [facility] Comment on above: Performed By: #### 2 534255, 02624135, 7684004, 4512069, 3568776, 2433769 #### [facility] [address] [place] [address] Hemoglobin Ql (U) Negative Normal Negative [facility] Comment on above: Performed By: #### 2 619354, 33604610, 8371809, 1949862, 3395193, 2890884 #### [facility] [address] [place] [address] Ketones (U) [Mass/Vol] Negative Normal Negative [facility] Comment on above: Performed By: #### 2 217581, 41287043, 3592979, 6310845, 0140638, 2612694 #### [facility] [address] [place] [address] [place].plasma/[place] .RBC (Bld) [Mass ratio] 0-3 Normal 0-3 [facility] Comment on above: Performed By: #### 2 805211, 04257347, 7031412, 5406883, 4457037, 3083148 #### [facility] [address] [place] [address] Mucus Ql (Urine sed) TRACE Normal [facility] Comment on above: Performed By: #### 2 904191, 66450041, 7721347, 3889867, 7872269, 5240466 #### [facility] [address] [place] [address] Nitrite Ql (U) Negative Normal Negative [facility] Comment on above: Performed By: #### 2 137926, 14143431, 2476932, 9652839, 4955559, 6427415 #### [facility] [address] [place] [address] pH (U) 7.0 [pH] Invalid Interpretation Code 5.0-9.0 [facility] Comment on above: Performed By: #### 2 973508, 17185669, 8491084, 6017003, 4092870, 3094196 #### [facility] [address] [place] [address] Protein (U) [Mass/Vol] Negative Normal Negative [facility] Comment on above: Performed By: #### 2 256010, 44410190, 9983128, 0918745, 7793210, 8058016 #### [facility] [address] [place] [address] Specific gravity (U) [Rel density] 1.015 Invalid Interpretation Code 1.005-1.030 [facility] Comment on above: Performed By: #### 2 412810, 69989495, 1001233, 6337551, 9448068, 8119127 #### [facility] [address] [place] [address] Type of Urine collection method Clean Catch Normal [facility] Comment on above: Performed By: #### 2 581652, 63834538, 5911507, 3146494, 1855706, 3735439 #### [facility] [address] [place] [address] Urobilinogen Qn (U) 0.2 {Rola'U}/dL Normal 0.0-1.0 [facility] Comment on above: Performed By: #### 2 499432, 25164624, 4473456, 2618206, 2969326, 1589650 #### [facility] [address] [place] [address] WBC Auto Ql (U) 1+ Abnormal Negative [facility] Comment on above: Performed By: #### 2 381789, 34712533, 3174403, 2489512, 6352877, 7556402 #### [facility] [address] [place] [address] WBC LM.HPF (Urine sed) [#/Area] 6-15 Abnormal 0-5 [facility] Comment on above: Performed By: #### 2 157698, 99321064, 7547172, 4657207, 0306922, 3574703 #### [facility] [address] [place] [address] URINALYSISOrdered By: An Mccarty on 11-04-2023 Bacteria [...] AM) Normal Negative [facility] UA Auto SS [place].plasma/[place] .RBC (Bld) [Mass ratio] 0-3 /HPF Normal 0-3/HPF [facility] UA Auto SS Mucus Ql (Urine sed) Trace (11/04/23 8:05 AM) Normal [facility] UA Auto SS Nitrite Ql (U) Negative (11/04/23 8:05 AM) Normal Negative [facility] UA Auto SS pH (U) 7.0 *NA* (1/21/24 8:05 AM) Invalid Interpretation Code 5.0 - 9.0 [facility] UA Auto SS Protein (U) [Mass/Vol] Negative (11/04/23 8:05 AM) Normal Negative [facility] UA Auto SS Specific gravity (U) [Rel density] 1.015 *NA* (11/04/23 8:05 AM) Invalid Interpretation Code 1.005 - 1.030 [facility] UA Auto SS UA Spec Desc Clean Catch (11/04/23 8:05 AM) Normal [facility] UA Auto SS Urobilinogen Qn (U) 0.5770924 {Rola'U}/dL Normal 0.0 - 1.0 EU/dL [facility] UA Auto SS WBC Auto Ql (U) 1+ *ABN* (11/04/23 8:05 AM) Invalid Interpretation Code Negative [facility] UA Auto SS WBC LM.HPF (Urine sed) [#/Area] 6-15 /HPF Invalid Interpretation Code 0-5/HPF [facility] UA Auto SS T3 Totalon 08-24-2023 T3 [Mass/Vol] 146 ng/dL Invalid Interpretation Code 71-180 [facility] Comment on above: Result Comment: Perf ormed at: [facility] [address] [id number] PhD Caroline [place] Performed By: #### 2 010516, 10107111, 5374637, 5853158, 0452121, 9797616 #### [facility] [address] [place] [address] Auto Diffon 08-23-2023 Basophils/100 WBC (Bld) 0.9 % Normal 0.0-2.0 [facility] Comment on above: Order Comment: Order Added by Discern Expert. Performed By: #### 2 211172, 54024609, 1028040, 8257189, 3466238, 6915540 #### [facility] [address] [place] [address] Basophils/Leukocytes Auto (Bld) [Pure # fraction] 0.1 E9/L Normal 0.0-0.2 [facility] Comment on above: Order Comment: Order Added by Discern Expert. Performed By: #### 2 015476, 42012073, 4565992, 6820846, 6925988, 8493070 #### [facility] [address] [place] [address] Eosinophils/100 WBC (Bld) 1.3 % Normal 0.0-8.0 [facility] Comment on above: Order Comment: Order Added by Discern Expert. Performed By: #### 2 419663, 25865888, 7539221, 0911218, 0266733, 0509154 #### [facility] [address] [place] [address] Eosinophils/Leukocytes Auto (Bld) [Pure # fraction] 0.1 E9/L Normal 0.0-0.5 [facility] Comment on above: Order Comment: Order Added by Discern Expert. Performed By: #### 2 070655, 09511210, 9675537, 0607196, 5999376, 3983890 #### [facility] [address] [place] [address] Lymphocytes/100 WBC (Bld) 17.7 % Normal 14.0-50.0 [facility] Comment on above: Order Comment: Order Added by Discern Expert. Performed By: #### 2 440989, 10091308, 9503882, 1108944, 7407253, 4846540 #### [facility] [address] [place] [address] Lymphocytes/Leukocytes Auto (Bld) [Pure # fraction] 1.4 E9/L Normal 1.0-4.0 [facility] Comment on above: Order Comment: Order Added by Discern Expert. Performed By: #### 2 608775, 42851265, 7917450, 0601426, 7120253, 3564367 #### [facility] [address] [place] [address] Monocytes/100 WBC (Bld) 5.1 % Normal 4.0-14.0 [facility] Comment on above: Order Comment: Order Added by Discern Expert. Performed By: #### 2 734256, 80680400, 1465999, 9697718, 8193804, 8013688 #### [facility] [address] [place] [address] Monocytes/Leukocytes Auto (Bld) [Pure # fraction] 0.4 E9/L Normal 0.2-1.0 [facility] Comment on above: Order Comment: Order Added by Discern Expert. Performed By: #### 2 507154, 89199556, 3567955, 3735350, 5824380, 6561571 #### [facility] [address] [place] [address] Neutrophils/100 WBC (Bld) 75.0 % Normal 36.0-75.0 [facility] Comment on above: Order Comment: Order Added by Discern Expert. Performed By: #### 2 266435, 82272291, 1028290, 0041825, 9298068, 7423679 #### [facility] [address] [place] [address] Neutrophils/Leukocytes Auto (Bld) [Pure # fraction] 5.8 E9/L Normal 2.0-7.5 [facility] Comment on above: Order Comment: Order Added by Discern Expert. Performed By: #### 2 564654, 42443406, 2784019, 0536265, 3013714, 4611109 #### [facility] [address] [place] [address] CBC w/ Auto Diffon 3 Erythrocyte distribution width (RBC) [Ratio] 14.5 % High 10.9-14.2 [facility] Comment on above: Performed By: #### 2 448022, 34864156, 7998789, 6998654, 0256547, 4673957 #### [facility] [address] [place] [address] Hematocrit (Bld) [Volume fraction] 36.4 % Normal 34.0-46.0 [facility] Comment on above: Performed By: #### 2 439543, 05711376, 7428729, 6309174, 1956882, 8159019 #### [facility] [address] [place] [address] Hemoglobin (Bld) [Mass/Vol] 12.1 g/dL Normal 12.0-16.0 [facility] Comment on above: Performed By: #### 2 299964, 96143878, 9748937, 6157496, 6134383, 1758492 #### [facility] [address] [place] [address] MCH (RBC) [Entitic mass] 30.2 pg Normal 27.0-34.0 [facility] Comment on above: Performed By: #### 2 184828, 93376289, 9789758, 0144050, 0008432, 8440924 #### [facility] [address] [place] [address] MCHC (RBC) [Mass/Vol] 33.3 g/dL Normal 31.4-36.0 [facility] Comment on above: Performed By: #### 2 325371, 02497968, 3808657, 2204450, 4595008, 0360214 #### [facility] [address] [place] [address] MCV (RBC) [Entitic vol] 90.8 fL Normal 80.0-100.0 [facility] Comment on above: Performed By: #### 2 682456, 78758923, 7961336, 0435139, 4825762, 2334980 #### [facility] [address] [place] [address] Platelet mean volume (Bld) [Entitic vol] 9.7 fL Normal 6.4-10.8 [facility] Comment on above: Performed By: #### 2 855097, 61779397, 2130218, 7624596, 4544496, 5397595 #### [facility] [address] [place] [address] Platelets (Bld) [#/Vol] 270.0 E9/L Normal 150.0-500.0 [facility] Comment on above: Performed By: #### 2 134109, 63217203, 2357014, 8473579, 9768155, 3218398 #### [facility] [address] [place] [address] RBC (Bld) [#/Vol] 4.0 E12/L Low 4.3-5.9 [facility] Comment on above: Performed By: #### 2 732522, 97582957, 2061851, 9747976, 2477070, 4749732 #### [facility] [address] [place] [address] WBC corrected for nucl RBC Auto (Bld) [#/Vol] 7.7 E9/L Normal 4.0-11.0 [facility] Comment on above: Performed By: #### 2 763488, 46174684, 5679505, 3126291, 5555346, 1654903 #### [facility] [address] [place] [address] CHEMISTRYOrdered By: SYSTEM SYSTEM on 08-23-2023 Albumin [...] 125 mL/min/1.73 m2 Normal >=59mL/min/ 1.73 m2 [facility] Comment on above: [...] 7 mg/dL Normal 5 - 21 mg/dL [facility] Remisol Urea nitrogen/Creatinine [Mass ratio] 12 mg/mg Normal 10 - 20 [facility] Remisol CMPon 08-23-2023 Albumin [Mass/Vol] 2.8 g/dL Low 3.3-5.0 [facility] Comment on above: Performed By: #### 2 382956, 94570588, 2133836, 9449214, 7534428, 2481502 #### [facility] [address] [place] [address] Albumin/Globulin (S) [Mass conc ratio] 0.7 Low 1.1-2.2 [facility] Comment on above: Performed By: #### 2 997577, 79362217, 0777366, 1772907, 8382379, 6115308 #### [facility] [address] [place] [address] ALP [Catalytic activity/Vol] 49 Int._Unit/L Normal 21-98 [facility] Comment on above: Performed By: #### 2 135828, 62995785, 9726636, 0608661, 3036150, 8221397 #### [facility] [address] [place] [address] ALT No additional P-5'-P [Catalytic activity/Vol] 15 Int._Unit/L Normal 6-46 [facility] Comment on above: Performed By: #### 2 509458, 37589934, 9309683, 1852606, 1743013, 5451826 #### [facility] [address] [place] [address] Anion gap [Moles/Vol] 12 mmol/L Normal 6-16 [facility] Comment on above: Performed By: #### 2 189806, 34527976, 1585220, 3083033, 2014186, 3446912 #### [facility] [address] [place] [address] AST [Catalytic activity/Vol] 17 Int._Unit/L Normal 5-43 [facility] Comment on above: Performed By: #### 2 803422, 20627933, 4884067, 0109436, 9889641, 1380015 #### [facility] [address] [place] [address] Bilirubin [Mass/Vol] 0.5 mg/dL Normal 0.0-1.1 [facility] Comment on above: Performed By: #### 2 680023, 31586277, 5812652, 9603844, 2938228, 1467087 #### [facility] [address] [place] [address] Calcium [Mass/Vol] 8.8 mg/dL Low 8.9-11.1 [facility] Comment on above: Performed By: #### 2 055012, 12876440, 9718225, 7957186, 9683391, 6081118 #### [facility] [address] [place] [address] Chloride [Moles/Vol] 108 mmol/L Normal 101-111 [facility] Comment on above: Performed By: #### 2 497160, 20425121, 8800537, 5343107, 3621866, 9301847 #### [facility] [address] [place] [address] CO2 [Moles/Vol] 22 mmol/L Normal 21-31 [facility] Comment on above: Performed By: #### 2 917853, 16303382, 6366772, 6850749, 8458120, 0222704 #### [facility] [address] [place] [address] Creatinine [Mass/Vol] 0.6 mg/dL Normal 0.5-1.3 [facility] Comment on above: Performed By: #### 2 893525, 74799100, 6813814, 6803442, 9433519, 8122143 #### [facility] [address] [place] [address] Globulin (S) [Mass/Vol] 3.8 g/dL Normal 1.4-4.0 [facility] Comment on above: Performed By: #### 2 624914, 22762217, 4617011, 2105261, 5663786, 8425828 #### [facility] [address] [place] [address] Glucose [Mass/Vol] 88 mg/dL Normal 55-199 [facility] Comment on above: Result Comment: If t his glucose result represents a fasting glucose, interpretation should refer to the following reference range: 55-99 mg/dL Performed By: #### 2 551242, 53701784, 8698801, 3684756, 3160933, 0629334 #### [facility] [address] [place] [address] Potassium [Moles/Vol] 3.5 mmol/L Normal 3.5-5.3 [facility] Comment on above: Performed By: #### 2 626146, 71853810, 0224418, 6948205, 9356604, 0510827 #### [facility] [address] [place] [address] Protein [Mass/Vol] 6.6 g/dL Normal 6.0-7.8 [facility] Comment on above: Performed By: #### 2 540671, 75160076, 0339311, 6457201, 7940092, 1137677 #### [facility] [address] [place] [address] Sodium [Moles/Vol] 138 mmol/L Normal 135-145 [facility] Comment on above: Performed By: #### 2 903824, 85042993, 2931284, 2772567, 2083666, 4491275 #### [facility] [address] [place] [address] Urea nitrogen [Mass/Vol] 7 mg/dL Normal 5-21 [facility] Comment on above: Performed By: #### 2 877157, 23161877, 8196635, 8012029, 0140371, 1009102 #### [facility] [address] [place] [address] Urea nitrogen/Creatinine [Mass ratio] 12 No Units Normal 10-20 [facility] Comment on above: Performed By: #### 2 229004, 47609771, 6118650, 0161904, 8832526, 0058866 #### [facility] [address] [place] [address] HEMATOLOGYOrdered By: SYSTEM SYSTEM on 08-23-2023 Basophils/100 [...] 7.7 E9/L Normal 4.0 - 11.0 E9/L [facility] HemeAutoSS Lipid Panelon 08-23-2023 Cholesterol [Mass/Vol] 238 mg/dL High 120-200 [facility] Comment on above: Performed By: #### 2 417760, 20390044, 7447459, 7468328, 9388181, 0035456 #### [facility] [address] [place] [address] Cholesterol in HDL [Mass/Vol] 64 mg/dL Invalid Interpretation Code [facility] Comment on above: Result Comment: HDL > or equal to 60 mg/dL: Low cardiovascular risk HDL < 40 mg/dL : High cardiovascular risk Performed By: #### 2 323322, 13385273, 7210246, 5958941, 7627607, 5950746 #### [facility] [address] [place] [address] Cholesterol in LDL [Mass/Vol] 146 mg/dL High <=129 [facility] Comment on above: Performed By: #### 2 652957, 36158290, 4345710, 5335881, 8492171, 2441845 #### [facility] [address] [place] [address] Cholesterol in VLDL [Mass/Vol] 33 mg/dL Normal 7-40 [facility] Comment on above: Performed By: #### 2 990050, 05572707, 4731399, 8187544, 6304999, 2156707 #### [facility] [address] [place] [address] Triglyceride [Mass/Vol] 164 mg/dL High <=149 [facility] Comment on above: Performed By: #### 2 450759, 71026423, 1675712, 7938762, 2150578, 5130752 #### [facility] [address] [place] [address] Physician Orderon 08-23-2023 Physician Order [id number]#1.00TIFF Normal [facility] T4 & TSHon 08-23-2023 T4 [Mass/Vol] 11.8 microgram/dL High 4.6-9.1 [facility] Comment on above: Performed By: #### 2 484668, 02131527, 5471411, 3375436, 4987866, 4080180 #### [facility] [address] [place] [address] TSH Qn 3.61 m[IU]/L Normal 0.34-5.60 [facility] Comment on above: Performed By: #### 2 774984, 83664946, 5067340, 9051936, 5143305, 8169415 #### [facility] [address] [place] [address] eGFRon 08-23-2023 GFR/1.73 sq M.predicted among non-blacks MDRD (S/P/Bld) [Vol rate/Area] 125 mL/min/1.73 m2 Normal >=59 [facility] Comment on above: Order Comment: Order Added by Discern Expert. Result Comment: Shipping Clerk lucy kidney disease could be indicated at eGFR's of less than 60 mL/min/1.73m2. Kidney failure is indicated at less than 15 mL/min/1.73m2. Performed By: #### 2 593559, 35646017, 9250216, 4055911, 0009114, 5011438 #### [facility] [address] [place] [address] Nursing Assessmenton 023 Nursing Assessment [id number]#1.00TIFF Normal [facility] Consent for Treatmenton Consent for Treatment [id number]#1.00TIFF Normal [facility] Discharge Instructionson Discharge Instructions [id number]#1.00TIFF Normal [facility] Inpatient Clinical Summaryon 08-18-2023 Inpatient Clinical Summary [address] [address] Clinical Summary Person Information Name: RHIANNARONEN GutierrezSUSAN D [facility] Age: 27 Years : 1995 Sex: Female PCP: NONE, XXXX Marital Status: Single Phone: [phone] Race: White Ethnicity: Non- or Language: Slovenian Visit Id: Visit Reason: Speciality: Acuity: Enc Type: OB Triage Med Service: Obstetrics Arrival: 08/18/2023 07:19:19 Discharge: 08/18/2023 08:15:00 Dispo Type: Home ([facility] [place]) Address: [address] [place] [id number] Provider Notes: Diagnosis: Problems Active (08/18/2023) Pre-employment examination [place] Smoker 16-APR-2014 12:37:00<$> Smoking Status: Former Smoker Functional Status: Sensory Deficits: History of Falls: Mobility Assistance Prior to Admission: ADLs: Current Level of Assistance for Self-Care/Mobility: Cognitive Status: Allergies penicillin (Hives) amoxicillin (Hives) Laboratory or Other Results This Visit (last charted value for your 08/18/2023 visit) No Laboratory or Other Results This Visit Measurements: Height: 162.5 cm Weight: 80.5 kg Blood Pressure: Not Valued / Not Valued BMI: 30.49 kg/m2 Procedures No Procedures Documented Immunizations influenza virus vaccine, inactivated (08/18/2023) Final Med List: docusate (Colace) levothyroxine (levothyroxine 50 mcg (0.05 mg) Tab) 1 Tablets By Mouth every day. multivitamin, ( Multivitamins) 1 Tablets By Mouth every day. Care Team Members: Attending Physician: Julia Haywood DO Consulting Physician: Referring Physician: Follow up: Patient Education Information: Second Trimester of , Axsj-ot-Jkva Normal [facility] Inpatient Patient Summaryon 08-18-2023 Inpatient Patient Summary [place] [id number] Patient Discharge Instructions PERSON INFORMATION Name: SUSAN BRO Date of : 1995 Current Date: 08/18/2023 08:35:25 PHYSICIANS Admitting Physician: Primary Care Physician: JULI, XXXX PCP Phone Number: Comment: Discharge Diagnosis: Condition at Discharge: SUSAN BRO has been given the following list of follow-up instructions, prescriptions, and patient education materials: PATIENT FOLLOW-UP INFORMATION Diet: Activity: Wound Care Instructions: Remove Your Dressing IN: Days Call Your Doctor For: IF UNABLE TO CONTACT YOUR PHYSICIAN AND YOU FEEL IT IS AN EMERGENCY, GO TO THE NEAREST EMERGENCY ROOM OR CALL 911 Home Treatment: Devices/Equipment: Special Services: Additional Instructions: Physician to provide the following pending test results: Follow up: In the event that this physician does not participate in your insurance network, please consult with your insurance company to find a nearby participating provider. Comment: RHIANNA Campos VERONICA D, have received the attached patient education materials/instructions and have verbalized understanding. Patient Signature ____ Date Clinican/Nurse Signature Date MEDICATION LIST Medications to Continue with No Changes Other Medications docusate (Colace) Last Dose: Next Dose: levothyroxine (levothyroxine 50 mcg (0.05 mg) Tab) 1 Tablets By Mouth every day. Last Dose: Next Dose: multivitamin, ( Multivitamins) 1 Tablets By Mouth every day. Last Dose: Next Dose: Pharmacy Information: [facility] PATIENT EDUCATION INFORMATION Instructions: Second Trimester of The second trimester of is from week 13 through week 27. This is also called months 4 through 6 of . This is often the time when you feel your best. During the second trimester: ? Morning sickness is less or has stopped. ? You may have more energy. ? You may feel hungry more often. At this time, your unborn baby (fetus) is growing very fast. At the end of the sixth month, the unborn baby may be up to 12 inches long and weigh about 1? pounds. You will likely start to feel the baby move between 16 and 20 weeks of . Body changes during your second trimester Your body continues to go through many changes during this time. The changes vary and generally return to normal after the baby is born. Physical changes ? You will gain more weight. ? You may start to get stretch radford on your hips, belly (abdomen), and breasts. ? Your breasts will grow and may hurt. ? Dark spots or blotches may develop on your face. ? A dark line from your belly button to the pubic area (linea nigra) may appear. ? You may have changes in your hair. Health changes ? You may have headaches. ? You may have heartburn. ? You may have trouble pooping (constipation). ? You may have hemorrhoids or swollen, bulging veins (varicose veins). ? Your gums may bleed. ? You may pee (urinate) more often. ? You may have back pain. Follow these instructions at home: Medicines ? Take sobo-hjt-aeamdtw and prescription medicines only as told by your doctor. Some medicines are not safe during . ? Take a vitamin that contains at least 600 micrograms (mcg) of folic acid. Eating and drinking ? Eat healthy meals that include: ? Fresh fruits and vegetables. ? Whole grains. ? Good sources of protein, such as meat, eggs, or tofu. ? Low-fat dairy products. ? Avoid raw meat and unpasteurized juice, milk, and cheese. ? You may need to take these actions to prevent or treat trouble pooping: ? Drink enough fluids to keep your pee (urine) pale yellow. ? Eat foods that are high in fiber. These include beans, whole grains, and fresh fruits and vegetables. ? Limit foods that are high in fat and sugar. These include fried or sweet foods. Activity ? Exercise only as told by your doctor. Most people can do their usual exercise during . Try to exercise for 30 minutes at least 5 days a week. ? Stop exercising if you have pain or cramps in your belly or lower back. ? Do not exercise if it is too hot or too humid, or if you are in a place of great height (high altitude). ? Avoid heavy lifting. ? If you choose to, you may have sex unless your doctor tells you not to. Relieving pain and discomfort ? Wear a good support bra if your breasts are sore. ? Take warm water baths (sitz baths) to soothe pain or discomfort caused by hemorrhoids. Use hemorrhoid cream if your doctor approves. ? Rest with your leg (more content not included)... Normal [facility] Insurance Correspondenceon 1 10-18-2022 Insurance Correspondence [id number] Normal [facility] Vaccinationson 08-18-2023 Vaccinations [id number] Normal [facility] C Urineon 07-27-2023 Bacteria identified Cx Nom (U) Microbiology PROCEDURE: Urine Culture [R1] SOURCE: U CleanCatch BODY SITE: COLLECTED DATE/TIME: 07/25/2023 08:33 EDT RECEIVED DATE/TIME: 07/25/2023 11:24 EDT START DATE/TIME: 07/25/2023 11:25 EDT FREE TEXT SOURCE: Prachi NICHOLS, Jorge Velarde PA-C, Jorge Hope FINAL REPORTS Final Report [] Verified Date/Time: 07/27/2023 08:57 EDT 1,000 cfu/ml Mixed skin contaminants Performing Locations R1: This test was performed at: [facility], [address] [place] [address], [address]- , , [facility] Comment on above: Performed By: #### 2 [id number], [id number] #### [facility] [address] [place] [address] ABO/Rhon 07-25-2023 ABO/Rh Positive Invalid Interpretation Code [facility] Comment on above: Performed By: #### 2 [id number] ####[facility] [address] [place] [address] Auto Diffon 07-25-2023 Basophils/100 WBC (Bld) 1.1 % Normal 0.0-2.0 [facility] Comment on above: Order Comment: Order Added by Discern Expert. Performed By: #### 2 988737, 63814441, 1943206, 1266243, 4573229, 2194830 #### [facility] [address] [place] [address] Basophils/Leukocytes Auto (Bld) [Pure # fraction] 0.1 E9/L Normal 0.0-0.2 [facility] Comment on above: Order Comment: Order Added by Discern Expert. Performed By: #### 2 941629, 95624249, 5550173, 7955671, 0048982, 8881515 #### [facility] [address] [place] [address] Eosinophils/100 WBC (Bld) 1.2 % Normal 0.0-8.0 [facility] Comment on above: Order Comment: Order Added by Discern Expert. Performed By: #### 2 964571, 71889781, 4347857, 1841056, 2550868, 7963060 #### [facility] [address] [place] [address] Eosinophils/Leukocytes Auto (Bld) [Pure # fraction] 0.1 E9/L Normal 0.0-0.5 [facility] Comment on above: Order Comment: Order Added by Discern Expert. Performed By: #### 2 706231, 30193819, 4734610, 5982672, 8003679, 6558396 #### [facility] [address] [place] [address] Lymphocytes/100 WBC (Bld) 23.7 % Normal 14.0-50.0 [facility] Comment on above: Order Comment: Order Added by Discern Expert. Performed By: #### 2 894881, 66519916, 7309226, 3934502, 3836427, 7197734 #### [facility] [address] [place] [address] Lymphocytes/Leukocytes Auto (Bld) [Pure # fraction] 1.4 E9/L Normal 1.0-4.0 [facility] Comment on above: Order Comment: Order Added by Discern Expert. Performed By: #### 2 015723, 58676984, 8078880, 6670852, 1125102, 5695739 #### [facility] [address] [place] [address] Monocytes/100 WBC (Bld) 6.7 % Normal 4.0-14.0 [facility] Comment on above: Order Comment: Order Added by Discern Expert. Performed By: #### 2 351829, 46658813, 9798564, 4738360, 6068738, 8981557 #### [facility] [address] [place] [address] Monocytes/Leukocytes Auto (Bld) [Pure # fraction] 0.4 E9/L Normal 0.2-1.0 [facility] Comment on above: Order Comment: Order Added by Discern Expert. Performed By: #### 2 741391, 09292864, 6200996, 5186993, 7223523, 9250941 #### [facility] [address] [place] [address] Neutrophils/100 WBC (Bld) 67.3 % Normal 36.0-75.0 [facility] Comment on above: Order Comment: Order Added by Discern Expert. Performed By: #### 2 333348, 25584063, 8979297, 0309185, 4879479, 4473200 #### [facility] [address] [place] [address] Neutrophils/Leukocytes Auto (Bld) [Pure # fraction] 4.0 E9/L Normal 2.0-7.5 [facility] Comment on above: Order Comment: Order Added by Discern Expert. Performed By: #### 2 941582, 97805113, 0850512, 9475914, 9664500, 9778304 #### [facility] [address] [place] [address] BLOOD BANKOrdered By: An Lassiter on 07-25-2023 ABO/Rh Interp Positive Invalid Interpretation Code [facility] BB Subsection BMPon 07-25-2023 Creatinine [Mass/Vol] 0.6 mg/dL Normal 0.5-1.3 [facility] Comment on above: Performed By: #### 2 155793, 94923414, 5336077, 0179691, 5373380, 8145174 #### [facility] [address] [place] [address] Urea nitrogen [Mass/Vol] 6 mg/dL Normal 5-21 [facility] Comment on above: Performed By: #### 2 642242, 92787898, 1214444, 3480612, 8985741, 6592553 #### [facility] [address] [place] [address] Urea nitrogen/Creatinine [Mass ratio] 10 No Units Normal 10-20 [facility] Comment on above: Performed By: #### 2 836129, 43550558, 3779965, 4363003, 8835662, 3117793 #### [facility] [address] [place] [address] Anion gap [Moles/Vol] 2 mmol/L Low 6-16 [facility] Comment on above: Performed By: #### 2 596294, 71121152, 2710094, 2578566, 3042382, 9415339 #### [facility] [address] [place] [address] Calcium [Mass/Vol] 8.6 mg/dL Low 8.9-11.1 [facility] Comment on above: Performed By: #### 2 665584, 06751672, 1088459, 2275628, 0063920, 6121698 #### [facility] [address] [place] [address] Chloride [Moles/Vol] 107 mmol/L Normal 101-111 [facility] Comment on above: Performed By: #### 2 929044, 70188060, 7606720, 4782802, 0344909, 7112432 #### [facility] [address] [place] [address] CO2 [Moles/Vol] 27 mmol/L Normal 21-31 [facility] Comment on above: Performed By: #### 2 453530, 86561455, 4207570, 2520046, 7421818, 6044078 #### [facility] [address] [place] [address] Glucose [Mass/Vol] 73 mg/dL Normal 55-199 [facility] Comment on above: Result Comment: If t his glucose result represents a fasting glucose, interpretation should refer to the following reference range: 55-99 mg/dL Performed By: #### 2 962458, 15572520, 3867066, 9433342, 2534274, 8028140 #### [facility] [address] [place] [address] Potassium [Moles/Vol] 3.9 mmol/L Normal 3.5-5.3 [facility] Comment on above: Performed By: #### 2 858548, 53275904, 4606543, 7273525, 4624262, 2160388 #### [facility] [address] [place] [address] Sodium [Moles/Vol] 132 mmol/L Low 135-145 [facility] Comment on above: Performed By: #### 2 329425, 96675350, 5578455, 8268663, 0761196, 3986763 #### [facility] [address] [place] [address] BhCG Quanton 07-25-2023 [place] [address] m[IU]/mL High 1-3 [facility] Comment on above: Result Comment: GEST ATIONAL AGE HCG RANGE (mIU/mL) NON- <1-3 0.2-1 WEEKS 5-50 1-2 WEEKS 50-500 2-3 WEEKS 100-5,000 3-4 WEEKS 500-10,000 4-5 WEEKS 1,000-50,000 5-6 WEEKS 10,000-100,000 6-8 WEEKS 15,000-200,000 8-12 WEEKS 10,000-100,000 Performed By: #### 2 494949 ####[facility] [address] [place] [address] CBC w/ Auto Diffon Erythrocyte distribution width (RBC) [Ratio] 14.0 % Normal 10.9-14.2 [facility] Comment on above: Performed By: #### 2 321496, 16424884, 4123936, 7561405, 0673745, 2554647 #### [facility] [address] [place] [address] Hematocrit (Bld) [Volume fraction] 37.1 % Normal 34.0-46.0 [facility] Comment on above: Performed By: #### 2 236842, 06445898, 6555469, 4170179, 8954998, 3711528 #### [facility] [address] [place] [address] Hemoglobin (Bld) [Mass/Vol] 12.5 g/dL Normal 12.0-16.0 [facility] Comment on above: Performed By: #### 2 509813, 61661880, 6956907, 7567189, 1074461, 7465665 #### [facility] [address] [place] [address] MCH (RBC) [Entitic mass] 29.9 pg Normal 27.0-34.0 [facility] Comment on above: Performed By: #### 2 443154, 92070436, 7054706, 1460755, 9854390, 8517697 #### [facility] [address] [place] [address] MCHC (RBC) [Mass/Vol] 33.8 g/dL Normal 31.4-36.0 [facility] Comment on above: Performed By: #### 2 305830, 47678515, 2245617, 9171106, 2247829, 9365413 #### [facility] [address] [place] [address] MCV (RBC) [Entitic vol] 88.4 fL Normal 80.0-100.0 [facility] Comment on above: Performed By: #### 2 510748, 11013838, 9844663, 8134363, 2117462, 3351887 #### [facility] [address] [place] [address] Platelet mean volume (Bld) [Entitic vol] 7.9 fL Normal 6.4-10.8 [facility] Comment on above: Performed By: #### 2 753057, 76715987, 1135990, 9001655, 4909455, 8199792 #### [facility] [address] [place] [address] Platelets (Bld) [#/Vol] 261.0 E9/L Normal 150.0-500.0 [facility] Comment on above: Performed By: #### 2 100654, 22551770, 1197926, 7621353, 0665118, 1899682 #### [facility] [address] [place] [address] RBC (Bld) [#/Vol] 4.2 E12/L Low 4.3-5.9 [facility] Comment on above: Performed By: #### 2 747104, 71370361, 7084319, 5536932, 5954757, 9009899 #### [facility] [address] [place] [address] WBC corrected for nucl RBC Auto (Bld) [#/Vol] 5.9 E9/L Normal 4.0-11.0 [facility] Comment on above: Performed By: #### 2 262840, 00183936, 6009739, 7838140, 2429602, 3495755 #### [facility] [address] [place] [address] CHEMISTRYOrdered By: SYSTEM SYSTEM on 07-25-2023 Albumin [...] 11. 1 mg/dL [facility] Chloride [Moles/Vol] 107 mmol/L Normal 101 - 1 11 mmol/L [facility] CO2 [Moles/Vol] 27 mmol/L Normal 21 - 31 mmol/L [facility] Creatinine [Mass/Vol] 0.6 mg/dL Normal 0.5 - 1.3 mg/dL [facility] GFR/1.73 sq M.predicted among non-blacks MDRD (S/P/Bld) [Vol rate/Area] 125 mL/min/1.73 m2 Normal >=59mL/min/ 1.73 m2 [facility] Chem S Comment on above: Interpretive Data: [...] reference range: 55-99 mg/[place] [address] m[IU]/mL High 1 - 3 mIU/mL [facility] Comment on above: Interpretive Data: G ESTATIONAL AGE HCG RANGE (mIU/mL) NON- <1-3 0.2-1 WEEKS 5-50 1-2 WEEKS 50-500 2-3 WEEKS 100-5,000 3-4 WEEKS 500-10,000 4-5 WEEKS 1,000-50,000 5-6 WEEKS 10,000-100,000 6-8 WEEKS 15,000-200,000 8-12 WEEKS 10,000-100,000 Lipase [Catalytic activity/Vol] 28 U/L Normal 13 - 58 unit/L [facility] Potassium [Moles/Vol] 3.9 mmol/L Normal 3.5 - 5.3 mmol/L [facility] Protein [Mass/Vol] 6.7 g/dL Normal 6.0 - 7.8 gm/dL [facility] Sodium [Moles/Vol] 132 mmol/L Low 135 - 145 mmol/L [facility] Urea nitrogen [Mass/Vol] 6 mg/dL Normal 5 - 21 mg/dL [facility] Remisol Urea nitrogen/Creatinine [Mass ratio] 10 mg/mg Normal 10 - 20 [facility] Remisol Consent for Treatmenton 07-15 Consent for Treatment [id number]#[id number] Normal [facility] Discharge Instructionson Discharge Instructions [id number] Normal [facility] ED Clinical Summaryon 2022 ED Clinical Summary (Inserted Image. Maryann ble to display) [place] [id number] ED Clinical Summary Person Information Name: SUSAN BRO [facility] Age: 27 Years : 1995 Sex: Female Language: Slovenian PCP: Rashaun AMADOR DO Marital Status: Single Phone: [phone] Visit Id: Visit Reason: Abdominal pain - ; Vaginal bleeding - < 20 wks ; SPOTTING AND CRAMPS - 18 WEEKS Speciality: Acuity: 3 Enc Type: Emergency Med Service: Emergency Arrival: 07/25/2023 08:12:57 Discharge: 07/25/2023 10:02:35 LOS: 000 01:50 Checkin: 07/25/2023 08:12:57 Checkout: 07/25/2023 10:02:35 Dispo Type: Home (Routine DC) EVENTS: Event Name Event Status Request Date/Time Start Date/Time Complete Date/Time Arrive Complete 07/25/2023 08:12:57 07/25/2023 08:12:57 07/25/2023 08:12:57 Document Home Meds Request 07/25/2023 08:12:57 Triage Complete 07/25/2023 08:12:57 07/25/2023 08:20:56 07/25/2023 08:20:56 Registration Complete 07/25/2023 08:16:34 07/25/2023 08:16:34 07/25/2023 08:16:34 Reg Complete Request 07/25/2023 08:16:34 Reg Bed Request Complete 07/25/2023 08:16:34 07/25/2023 08:16:34 07/25/2023 08:16:34 Bed Assign Complete 07/25/2023 08:16:45 07/25/2023 08:16:45 07/25/2023 08:16:45 Dr Exam Complete 07/25/2023 08:16:45 07/25/2023 08:19:13 07/25/2023 08:19:13 RN Exam Complete 07/25/2023 08:16:45 07/25/2023 08:32:37 07/25/2023 08:32:37 Registration Request 07/25/2023 08:19:13 Dr Exam Complete 07/25/2023 08:25:56 07/25/2023 08:25:56 07/25/2023 08:25:56 US Cancel 07/25/2023 08:27:24 07/25/2023 09:07:11 Pending Labs Complete 07/25/2023 08:27:24 07/25/2023 09:27:57 Blood Collect Request 07/25/2023 08:27:24 Lab Complete 07/25/2023 08:27:24 07/25/2023 09:27:57 Urine Collect Complete 07/25/2023 08:27:24 07/25/2023 08:53:06 Pending Labs Complete 07/25/2023 08:39:37 07/25/2023 08:39:37 07/25/2023 09:05:33 Lab Complete 07/25/2023 08:39:37 07/25/2023 08:39:37 07/25/2023 09:05:33 Pending Labs Complete 07/25/2023 08:40:04 07/25/2023 08:40:04 07/25/2023 08:40:05 Pending Labs Collected 07/25/2023 08:45:37 07/25/2023 08:45:37 Lab Collected 07/25/2023 08:45:37 07/25/2023 08:45:37 Pending Labs Complete 07/25/2023 09:02:57 07/25/2023 09:02:57 07/25/2023 09:03:05 Lab Complete 07/25/2023 09:02:57 07/25/2023 09:02:57 07/25/2023 09:03:05 US Complete 07/25/2023 09:07:09 07/25/2023 09:12:13 07/25/2023 09:43:55 Discharge Complete 07/25/2023 09:56:34 07/25/2023 10:02:43 07/25/2023 10:02:43 Transfer Complete 07/25/2023 10:02:43 07/25/2023 10:02:43 07/25/2023 10:02:43 ADDR[facility]: [facility] [id number] [facility] DOC NOTES: MEDICAL INFORMATION: Prescriptions Given: Medications to Continue with No Changes Other Medications famotidine (Pepcid 20 mg Tab) 1 Tablets By Mouth every day. Refills: 0. ibuprofen (ibuprofen 600 mg Tab) 1 Tablets By Mouth every 6 hours. Refills: 0. levothyroxine (levothyroxine 50 mcg (0.05 mg) Tab) 1 Tablets By Mouth every day. multivitamin, ( Multivitamins) 1 Tablets By Mouth every day. ondansetron (Zofran ODT 4 mg Tab-Dis) 1 Tablets By Mouth every 8 hours. Refills: 0. PATIENT EDUCATION INFORMATION: Instructions: Abdominal Pain During Follow up: With: Address: When: Luis Carlos [facility], [facility] [address], [place] [address] Business (1) In 3 days 07/28/2023 DIAGNOSIS: Abdominal cramping; Vaginal spotting Normal [facility] ED Note-Physicianon 07-25-20 ED Note-Physician Basic Information Time Seen: Jorge Velarde PA-C 07/25/2023 08:19 Chief Complaint Pt reports abd cramping for 3 days. Light vaginal bleeding that started last night. Pt reports 18w3d . bilateral lower abd pain. History of Present Illness 27-year-old female who is 18 weeks presents ED with complaint of lower abdominal cramping as well as vaginal spotting. Patient reports that she is 18 weeks 3 days . Patient ports that she has had lower bilateral abdominal cramping over the last 3 days. Patient reports she began to have spotting yesterday evening through this morning. Patient denies any significant vaginal bleeding. Patient has any passage of clots. Otherwise, patient reports feeling well. Patient denies any nausea or vomiting. Patient denies any fevers or chills. Patient denies any complications thus far in the , does follow with Dr. Jung. Patient denies any significant complications with her previous , has a 77-dbwbo-ugb at home. Review of Systems Full 10 system ROS performed. Pt denies symptoms except as noted above in the HPI. Physical Exam Vitals & Measurements T: 36.5 ?C(Oral) HR: 73(Peripheral) RR: 16 BP: 119/65 SpO2: 100% HT: 162.56 cm WT: 80.2 kg BMI: 30.35 VITALS: I have reviewed the triage vital signs. GENERAL: Well developed, well appearing adult in no acute distress. NEURO: Alert and oriented. Moves all extremities. Face is symmetric and expressive. EYES: PERRL. No scleral icterus or conjunctival injection. No discharge. HENT: Normocephalic, atraumatic. Hearing is grossly intact. Nares grossly patent and without discharge. Mucous membranes moist. NECK: No JVD. Patient moves neck without restriction. CARDIO: Rhythm regular. Normal rate. No murmur, rub, or gallop. Pulses equal bilaterally in the upper and lower extremity. No lower extremity edema. PULM: Lungs clear to auscultation in all anderson. No wheezes, rales, or rhonchi. No conversational dyspnea. No splinting, stridor, or accessory muscle use. GI/: Abdomen is soft minimally tender to deep palpation normoactive bowel sounds. EXTREMITIES: Symmetric muscle bulk. No joint swelling. No clubbing, cyanosis, or deformity. SKIN: Warm and dry. Normal turgor. No rash or lesions appreciated. PSYCH: Mood, affect, and interaction is appropriate to the setting. Medical Decision Making MEDICAL DECISION MAKING Number and Complexity of Problems Differential Diagnosis: [] [facility] Data External documents reviewed: [] My EKG interpretation: [] My CT interpretation: [] My X-ray interpretation: [] My Ultrasound interpretation: [] Decision rules/scores evaluated: [] Discussed with: [] Treatment and Disposition ED Course: Patient presents ED with complaint of lower abdominal cramping as well as vaginal spotting in the context of atypical . Patient is basically well-appearing presentation to ED, normal vital signs. Work-up in ED reviewed and noted. Patient without any significant laboratory abnormalities, ultrasound shows normal placental placement, intrauterine , good heart tones. This was discussed with patient. Follow-up with [facility] was discussed with patient. Return precautions to ED were discussed. Patient questions were answered. Patient discharged home. Shared decision making: [] Code status: [] Assessment/Plan Abdominal cramping (R10.9: Unspecified abdominal pain) Vaginal spotting (N93.9: Abnormal uterine and vaginal bleeding, unspecified) Orders: ABO/Rh Automated Diff Basic Metabolic Panel Beta hCG Quantitative CBC w/ Auto Diff eGFR Extra Blue Tube Extra SST Tube Hepatic Function Panel Lipase Level UA With Cult Reflex Urine Culture US Limited Disposition Plan Patient Discharge Condition Stable Discharge Disposition To home Discharge Prescription List Prescriptions No active prescription medications Follow-up With When Contact Information Luis Carlos Jung In 3 days 07/28/2023 EDT [address] [facility], [facility] [address] [place] [address]- Business (1) Additional Instructions: Patient Education Abdominal Pain During Attestation Patient seen and evaluated by the physician assistant product manager. Attending physician was present in the emergency department and supervised care. This visit was performed by both the physician and an APC. I performed all aspects of the MDM as documented. This report was transcribed using voice recognition software. Every effort was made to ensure accuracy, however, inadvertently computerized flue lining dipper mistakes may be present. Appropriate healthcare PPE was used in evaluating this patient. The patient was placed in a mask. The healthcare provider was wearing mask, gloves, and utilizing proper hand hygiene. All equipment was properly cleansed Problem List/Past Medical History Ongoing [place] Pre-employment examination Smoker 16-APR-2014 (more content not included)... Normal [facility] Comment on above: Result Comment: Elec tronically Signed By: Prachi NICHOLS, Jorge Hope\.br\Date and Time Signed: 07/25/23 10:02 EDT\.br\Electronically Co-Signed By: Kristian Guillermo DO\.br\Date and Time Co-Signed: 07/25/23 20:25 EDT ED Patient Education Noteon 07-25-2023 ED Patient Education Note Obstetrics and Gynecology Abdominal Pain During Abdominal pain is common during and has many possible causes. Some causes are more serious than others, and sometimes the cause is not known. Abdominal pain can be a sign that labor is starting. It can also be caused by normal growth of your baby causing stretching of muscles and ligaments during . Always tell your health care provider if you have any abdominal pain. Follow these instructions at home: ? Do not have sex or put anything in your vagina until your pain goes away completely. ? Get plenty of rest until your pain improves. ? Drink enough fluid to keep your urine pale yellow. ? Take qywc-syl-hlrfnlr and prescription medicines only as told by your health care provider. ? Keep all follow-up visits. This is important. Contact a health care provider if: ? Your pain continues or gets worse after resting. ? You have lower abdominal pain that: ? Comes and goes at regular intervals. ? Spreads to your back. ? Is similar to menstrual cramps. ? You have pain or burning when you urinate. Get help right away if: ? You have a fever, chills, or shortness of breath. ? You have vaginal bleeding. ? You are leaking fluid or passing tissue from your vagina. ? You have vomiting or diarrhea that lasts for more than 24 hours. ? Your baby is moving less than usual. ? You feel very weak or faint. ? You develop severe pain in your upper abdomen. Summary ? Abdominal pain is common during and has many possible causes. ? If you experience abdominal pain during , tell your health care provider right away. ? Follow your health care provider's home care instructions and keep all follow-up visits as told. This information is not intended to replace advice given to you by your health care provider. Make sure you discuss any questions you have with your health care provider. Document Revised: 06/14/2021 Document Reviewed: 06/14/2021 Elsevier Patient Education ? 2022 [employer]!. [facility] ED Patient Summaryon 023 ED Patient Summary (Inserted Image. Maryann ble to display) [address] [address] Patient Discharge Instructions Person Information Name: SUSAN BRO Age: 27 Years Arrival Date: 07/25/2023 08:12:57 Discharge Diagnosis: Abdominal cramping; Vaginal spotting Primary Care Physician: Rashaun AMADOR DO Provider Information Primary Provider: Kristian Guillermo DO [employer] Vendor:Jorge Velarde PA-C The exam and treatment you received in the Emergency Department were for an urgent problem and are not intended as complete care. It is important that you follow up with a doctor, nurse practitioner, or physician?s assistant product manager for ongoing care. If your symptoms become worse or you do not improve as expected and you are unable to reach your usual health care provider, you should return to the Emergency Department. We are available 24 hours a day. SUSAN BRO has been given the following list of patient education materials, prescriptions and follow-up instructions: Follow-up Instructions: With: Address: When: Luis Carlos Jung [address] [place] [id number] Business (1) In 3 days 07/28/2023 In the event that this physician does not participate in your insurance network, please consult with your insurance company to find a nearby participating provider. Patient Education Materials: Abdominal Pain During A MESSAGE TO ALL PATIENTS REGARDING OPIOIDS PRESCRIPTION OPIOIDS: WHAT YOU NEED TO KNOW Prescription opioids can be used to help relieve vxsxmthj-hd-ygtpjc pain and are often prescribed following a surgery or injury, or for certain health conditions. These medications can be an important part of the treatment but also come with serious risks. It is important to work with your healthcare provider to make sure you are getting the safest, most effective care. WHAT ARE THE RISKS AND SIDE EFFECTS OF OPIOID USE? Prescription opioids carry serious risks of addiction and overdose, especially with prolonged use. An opioid overdose, often marked by slowed breathing, can cause sudden . The use of prescription opioids can have a number of side effects as well, even when taken as directed: ? Tolerance?meaning you might need to take more of the medication for the same pain relief ? Physical dependence?meaning you have symptoms of withdrawal when a medication is stopped ? Increased sensitivity to pain ? Constipation ? Nausea, vomiting, and dry mouth ? Sleepiness and dizziness ? Confusion ? Depression ? Low levels of testosterone that can result in lower sex drive, energy, and strength ? Itching and sweating RISKS ARE GREATER WITH: ? History of drug misuse, substance use disorder, or overdose ? Mental health conditions (such as depression or anxiety) ? Sleep apnea ? Older age (65 years and older) ? Avoid alcohol while taking prescription opioids. Also, unless specifically advised by your health care provider, medications to avoid include: ? Benzodiazepines (such as Xanax or Valium) ? Muscle relaxants (such as Soma or Flexeril) ? Hypnotics (such as Ambien or Lunesta) ? Other prescription opioids KNOW YOUR OPTIONS Talk to your health care provider about ways to manage your pain that don?t involve prescription opioids. Some of these options may actually work better and have fewer risks and side effects. Options may include: ? Pain relievers such as acetaminophen, ibuprofen, and naproxen ? Some medication that are also used for depression or seizures ? Physical therapy and exercise ? Cognitive behavioral therapy, a psychological, goal-directed approach, in which patients learn how to modify physical, behavioral, and emotional triggers of pain and stress. IF YOU ARE PRESCRIBED OPIOIDS FOR PAIN: ? Never take opioids in greater amounts or more often than prescribed. ? Follow up with your primary health care provider. o Work together to create a plan on how to manage your pain. o Talk about ways to help manage your pain that don?t involve prescription opioids. o Talk about any and all concerns and side effects. ? Help prevent misuse and abuse o Never sell or share prescription opioids. o Never use another person?s prescription opioids. ? Store prescription opioids in a secure place and out of reach of others (this may include visitors, children, friends, and family). ? Safely dispose of unused prescription opioids: Find your community drug take-back program or your pharmacy mail-back program, or flush them down the toilet, following guidance from the Food and Drug Administration (www.fda.gov/Drugs/Resour cesForYou). ? Visit www.cdc.gov/drugoverdose to learn about the risks of opioids abuse and overdose. ? If you believe you may be struggling with addiction, tell your health personal caregiver and ask for guidance or call [facility] (more content not included)... Normal [facility] HEMATOLOGYOrdered By: SYSTEM SYSTEM on [...] Bilirubin.indirect [Mass or moles/Vol] UTC Abnormal 0.1-0.9 [facility] Comment on above: Result Comment: Resu lt verified by Discern Rule. Performed result UTC (Unable to Calculate) was sent as an Alpha code due the inability to calculate a valid numeric value. Performed By: #### 2 [id number], [id number], 6691789, 3687492, 6229695, 8359999 #### [facility] [address] [place] [address] Albumin [Mass/Vol] 3.1 g/dL Low 3.3-5.0 [facility] Comment on above: Performed By: #### 2 264409, [id number], 7583432, 4723822, 8220664, 1712563 #### [facility] [address] [place] [address] Albumin/Globulin (S) [Mass conc ratio] 0.9 Low 1.1-2.2 [facility] Comment on above: Performed By: #### 2 110752, 23311425, 8443483, 9034057, 5249099, 7886170 #### [facility] [address] [place] [address] ALP [Catalytic activity/Vol] 35 Int._Unit/L Normal 21-98 [facility] Comment on above: Performed By: #### 2 266182, 05917273, 7250013, 9442948, 3643741, 7217159 #### [facility] [address] [place] [address] ALT No additional P-5'-P [Catalytic activity/Vol] 10 Int._Unit/L Normal 6-46 [facility] Comment on above: Performed By: #### 2 486169, 20169863, 9850646, 1777664, 7828338, 8699528 #### [facility] [address] [place] [address] AST [Catalytic activity/Vol] 18 Int._Unit/L Normal 5-43 [facility] Comment on above: Performed By: #### 2 048601, 26908354, 4471500, 8330008, 8092727, 2151046 #### [facility] [address] [place] [address] Bilirubin [Mass/Vol] 0.4 mg/dL Normal 0.0-1.1 [facility] Comment on above: Performed By: #### 2 781387, 14170560, 4722668, 1314931, 2512617, 1582512 #### [facility] [address] [place] [address] Globulin (S) [Mass/Vol] 3.6 g/dL Normal 1.4-4.0 [facility] Comment on above: Performed By: #### 2 498123, 25866326, 2752021, 8278137, 9174581, 0541344 #### [facility] [address] [place] [address] Protein [Mass/Vol] 6.7 g/dL Normal 6.0-7.8 [facility] Comment on above: Performed By: #### 2 085943, 12067033, 8388322, 5892867, 2463775, 0271137 #### [facility] [address] [place] [address] Bilirubin.direct [Mass/Vol] mg/dL Normal 0.1-0.4 [facility] Comment on above: Performed By: #### 2 329179, 25812993, 4486893, 4245513, 6517646, 4474783 #### [facility] [address] [place] [address] Lipase Levelon 07-25-2023 Lipase [Catalytic activity/Vol] 28 U/L Normal 13-58 [facility] Comment on above: Performed By: #### 2 429745, 21840845, 5858750, 2414585, 5650981, 9527512 #### [facility] [address] [place] [address] UA With Cult Reflexon 2022 Bacteria LM Ql (Urine sed) TRACE Normal Trace [facility] Comment on above: Performed By: #### 2 183613, [id number] #### [facility] [address] [place] [address] Bilirubin Ql (U) Negative Normal Negative [facility] Comment on above: Performed By: #### 2 014628, [id number] #### [facility] [address] [place] [address] Clarity (U) SL CLOUDY Abnormal Clear [facility] Comment on above: Performed By: #### 2 974431, [id number] #### [facility] [address] [place] [address] Color (U) YELLOW Normal Yellow [facility] Comment on above: Performed By: #### 2 048047, 03263778 #### [facility] [address] [place] [address] Epithelial cells.squamous LM.HPF (Urine sed) [#/Area] 0-2 Normal 0-2 [facility] Comment on above: Performed By: #### 2 117531, 84525620 #### [facility] [address] [place] [address] Glucose Test strip (U) [Mass/Vol] Negative Normal Negative [facility] Comment on above: Performed By: #### 2 897741, 94808969 #### [facility] [address] [place] [address] Hemoglobin Ql (U) Negative Normal Negative [facility] Comment on above: Performed By: #### 2 326746, 59073724 #### [facility] [address] [place] [address] Ketones (U) [Mass/Vol] Negative Normal Negative [facility] Comment on above: Performed By: #### 2 542548, 57445441 #### [facility] [address] [place] [address] [place].plasma/[place] .RBC (Bld) [Mass ratio] 0-3 Normal 0-3 [facility] Comment on above: Performed By: #### 2 781395, 75786944 #### [facility] [address] [place] [address] Nitrite Ql (U) Negative Normal Negative [facility] Comment on above: Performed By: #### 2 237513, 51311537 #### [facility] [address] [place] [address] pH (U) 7.5 [pH] Invalid Interpretation Code 5.0-9.0 [facility] Comment on above: Performed By: #### 2 665018, 68438754 #### [facility] [address] [place] [address] Protein (U) [Mass/Vol] Negative Normal Negative [facility] Comment on above: Performed By: #### 2 127183, 42719637 #### [facility] [address] [place] [address] Specific gravity (U) [Rel density] 1.010 Invalid Interpretation Code 1.005-1.030 [facility] Comment on above: Performed By: #### 2 457140, 64462743 #### [facility] [address] [place] [address] Type of Urine collection method Clean Catch Normal [facility] Comment on above: Performed By: #### 2 115768, 11250841 #### [facility] [address] [place] [address] Urobilinogen Qn (U) 1.0 {Rola'U}/dL Normal 0.0-1.0 [facility] Comment on above: Performed By: #### 2 683125, 37915418 #### [facility] [address] [place] [address] WBC Auto Ql (U) 2+ Abnormal Negative [facility] Comment on above: Performed By: #### 2 676577, 46032716 #### [facility] [address] [place] [address] WBC LM.HPF (Urine sed) [#/Area] 0-5 Normal 0-5 [facility] Comment on above: Performed By: #### 2 889337, [id number] #### [facility] [address] [place] [address] URINALYSISOrdered By: Emy Aiken on 07-25-2023 Bacteria [...] AM) Normal Negative [facility] UA Auto SS [place].plasma/[place] .RBC (Bld) [Mass ratio] 0-3 /HPF Normal 0-3/HPF [facility] UA Auto SS Nitrite Ql (U) Negative (07/25/23 8:33 AM) Normal Negative [facility] UA Auto SS pH (U) 7.5 *NA* (07/25/23 8:33 AM) Invalid Interpretation Code 5.0 - 9.0 [facility] UA Auto SS Protein (U) [Mass/Vol] Negative (07/25/23 8:33 AM) Normal Negative [facility] UA Auto SS Specific gravity (U) [Rel density] 1.010 *NA* (07/25/23 8:33 AM) Invalid Interpretation Code 1.005 - 1.030 [facility] UA Auto SS UA Spec Desc Clean Catch (07/25/23 8:33 AM) Normal [facility] UA Auto SS Urobilinogen Qn (U) 1.7715283 {Rola'U}/dL Normal 0.0 - 1.0 EU/dL [facility] UA Auto SS WBC Auto Ql (U) 2+ *ABN* (07/25/23 8:33 AM) Invalid Interpretation Code Negative [facility] UA Auto SS WBC LM.HPF (Urine sed) [#/Area] 0-5 /HPF Normal 0-5/HPF [facility] UA Auto SS US Limitedon 07-25 US Limited Exam Date/Time: 07/25/2023 09:43 EDT Reason for Exam: Vaginal bleeding Report IMPRESSION: Limited ultrasound performed. Single live intrauterine gestation. No measurements performed on this limited study. Posterior/fundal placenta without evidence for previa. Cervix appears closed and measures around 4.5 cm. EXAMINATION: US Limited HISTORY: Spotting for 3 days. Cramping. TECHNIQUE: Limited transabdominal ultrasound of the gravid pelvis was performed. COMPARISON: 06/14/2023. RESULT: Posterior/fundal placenta, located approximately 3.5 cm from the cervix. Cervix appears grossly closed and measures around 4.5 cm within limits of transabdominal evaluation. No measurements were obtained. cardiac activity measures around 147 bpm. No gross anomaly of the partially visualized anatomy. Ordering Provider: Jorge Velarde FINAL REPORT Dictated: 07/25/2023 10:01 am Ladarius Davis MD Signed (Electronic Signature): 07/25/2023 10:01 am Signed by: Ladarius Davis MD Transcribed by: RINKU Technologist: IRAM Technical Comments DARON 12/23/23 History 2 Para 1 Transabdominal Ultrasound Performed FHR (bpm) 147 Cervical Length (cm) 4.4 Normal [facility] eGFRon 07-25-2023 GFR/1.73 sq M.predicted among non-blacks MDRD (S/P/Bld) [Vol rate/Area] 125 mL/min/1.73 m2 Normal >=59 [facility] Comment on above: Order Comment: Order added by Discern Expert. Result Comment: Shipping Clerk lucy kidney disease could be indicated at eGFR's of less than 60 mL/min/1.73m2. Kidney failure is indicated at less than 15 mL/min/1.73m2. Performed By: #### 2 340896, 22962541, 1149646, 1166794, 6515393, 8059004 #### [facility] [address] [place] [address] C Urineon 06-30-2023 Bacteria identified Cx Nom (U) Microbiology PROCEDURE: Urine Culture [R1] SOURCE: U CleanCatch BODY SITE: COLLECTED DATE/TIME: 06/28/2023 11:12 EDT RECEIVED DATE/TIME: 06/28/2023 16:50 EDT START DATE/TIME: 06/28/2023 16:50 EDT FREE TEXT SOURCE: Spasic PA-C, Roverto Spasic PA-C, Roverto V. V. FINAL REPORTS Final Report [] Verified Date/Time: 06/30/2023 10:43 EDT 1,000 cfu/ml Mixed skin contaminants Performing Locations R1: [facility], [address] [place] [address], [address] , , Normal [facility] Comment on above: Performed By: #### 2 385109 ####[facility] [address] [place] [address] Family Medicine Office/Clini c Noteon 06-28-2023 Family Medicine Office/Clinic Note Chief Complaint UTI HPI Staff 27 yr old female here for possible UTI. pt is 14 weeks . Frequency- no Urgency- yes Small volume void- yes Dysuria- yes Pressure- yes Back pain- yes Nocturia- yes Fever/chills- no Nausea/vomiting- no UTI or other reason for antbx's last 30 days- pt was on antibiotics for UTI 11 of June History of Present Illness Portions of this record may have been created with voice recognition artificial intelligence software, specifically [employer], [employer] and or [employer]. Substitutions may have occurred due to the inherent limitations of voice recognition and artificial intelligence software. Staff hpi reviewed. Pt is a 27 yoF complaint of urinary symptoms of urgency small voiding volume. States symptoms since the fourth. Patient states was on antibiotics for UTI 11 June. States when she finished this symptoms began again. She states she is 14 weeks . 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 No other complaints or concerns. No known drug allergies. Review of Systems PHQ Score Initial Depression Screen Score: 0 Physical Exam Vitals & Measurements T: 36.8 ?C(Tympanic) HR: 81(Peripheral) BP: 119/78 SpO2: 99% HT: 64 in HT: 163 cm WT: 74.8 kg WT: 164.56 lb BMI: 28.15 General - alert no acute distress Skin - warm dry Head -normocephalic atraumatic ENT-TMs clear pearly hahn-white bilaterally no pharyngeal erythema or exudates Cardiovascular - regular rate regular rhythm Respiratory - lungs clear to auscultation, non-labored respirations, breath sounds equal Assessment/Plan 1. UTI symptoms (R39.9: Unspecified symptoms and signs involving the genitourinary system) UA without abnormality. Discussed UTI unlikely. Will cx urine to ensure no bacterial growth and notify of results in 3-5 days. Will send azo for pt. Fluids/rest. FU with PCP if continuing or worsening symptoms for further eval. Patient and/or parent verbalized understanding of tx plan. Ordered: phenazopyridine, 200 mg = 1 tab(s), Oral, TID, X 2 day(s), # 6 tab(s), Refills(s) 0, Pharmacy: [facility], 163, cm, 06/28/23 10:39:00 EDT, Height/Length Dosing, 74.8, kg, 06/28/23 10:39:00 EDT, Weight Dosing Urine Culture Urnls Dip Stick Non-Auto w/o Micrscpy POC 44843 2. (Z34.90: Encounter for supervision of normal , unspecified, unspecified trimester) Same as above. Follow-up With When Contact Information Fabiana MARION, Luis Carlos Byrd, [address] [facility], [address] [place] [address]- Additional Instructions: Patient Education Urinary Tract Infection, Adult, Zxxa-lz-Nkmy Urinary Tract Infection, Adult, Ipfu-vx-Apxw Problem List/Past Medical History Ongoing [place] Pre-employment examination Smoker 16-APR-2014 12:37:00<$> Historical Bacterial meningitis Extreme obesity 16-APR-2014 12:48:08<$> Headache None Procedure/Surgical History Cholecystotomy. 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 Never Smokeless Tobacco Use:. Cigarettes, 06/28/2023 5-9 cigarettes (between 1/4 to 1/2 pack)/day in last 30 days Tobacco Use:. Cigarettes, Yes, 08/18/2022 Family History Asthma: Brother. Immunizations Vaccine Date Status Comments influenza virus vaccine, inactivated 09/25/2022 Given Early/Late Reason: Nursing Judgment SARS-CoV-2 (COVID-19) mRNA BNT-162b2 vax 01/28/2021 Given Prophylaxis SARS-CoV-2 (COVID-19) mRNA BNT-162b2 vax 12/31/2020 Given Prophylaxis diphtheria/pertussis, acel/tetanus adult 05/12/2018 Given Lab Results Ambulatory Point of Care Results Bilirubin Urine Dipstick: Negative (06/28/23 10:44:00) Blood Urine Dipstick: Negative (06/28/23 10:44:00) Glucose Urine Dipstick: Negative (06/28/23 10:44:00) Ketones Urine Dipstick: Negative (06/28/23 10:44:00) Leukocytes Urine Dipstick: Negative (06/28/23 10:44:00) Nitrite Urine Dipstick: Negative (06/28/23 10:44:00) Protein Urine Dipstick: Negative (06/28/23 10:44:00) Specific [place] Urine Dipstick: 1.025 (06/28/23 10:44:00) Urine Appearance Urine Dipstick: Slightly cloudy (06/28/23 10:44:00) Urine Color Urine Dipstick: Dark yellow (06/28/23 10:44:00) Urobilinogen Urine Dipstick: Normal 0.2-1 (more content not included)... Normal [facility] Comment on above: Result Comment: Elec tronically Signed By: Татьяна NICHOLS, Roverto Barron\.br\Date and Time Signed: 06/28/23 11:41 EDT Patient Educationon 06-28-20 Patient Education Urinary Tract Infect ion, Adult A urinary tract infection (UTI) is an infection of any part of the urinary tract. The urinary tract includes: ? The kidneys. ? The ureters. ? The bladder. ? The urethra. These organs make, store, and get rid of pee (urine) in the body. What are the causes? This infection is caused by germs (bacteria) in your genital area. These germs grow and cause swelling (inflammation) of your urinary tract. What increases the risk? The following factors may make you more likely to develop this condition: ? Using a small, thin tube (catheter) to drain pee. ? Not being able to control when you pee or poop (incontinence). ? Being female. If you are female, these things can increase the risk: ? Using these methods to prevent : ? A medicine that kills sperm (spermicide). ? A device that blocks sperm (diaphragm). ? Having low levels of a female hormone (estrogen). ? Being . You are more likely to develop this condition if: ? You have genes that add to your risk. ? You are sexually active. ? You take antibiotic medicines. ? You have trouble peeing because of: ? A prostate that is bigger than normal, if you are male. ? A blockage in the part of your body that drains pee from the bladder. ? A kidney stone. ? A nerve condition that affects your bladder. ? Not getting enough to drink. ? Not peeing often enough. ? You have other conditions, such as: ? Diabetes. ? A weak disease-fighting system (immune system). ? Sickle cell disease. ? Gout. ? Injury of the spine. What are the signs or symptoms? Symptoms of this condition include: ? Needing to pee right away. ? Peeing small amounts often. ? Pain or burning when peeing. ? Blood in the pee. ? Pee that smells bad or not like normal. ? Trouble peeing. ? Pee that is cloudy. ? Fluid coming from the vagina, if you are female. ? Pain in the belly or lower back. Other symptoms include: ? Vomiting. ? Not feeling hungry. ? Feeling mixed up (confused). This may be the first symptom in older adults. ? Being tired and grouchy (irritable). ? A fever. ? Watery poop (diarrhea). How is this treated? ? Taking antibiotic medicine. ? Taking other medicines. ? Drinking enough water. In some cases, you may need to see a specialist. Follow these instructions at home: Medicines ? Take gnxx-lcl-tycrdyg and prescription medicines only as told by your doctor. ? If you were prescribed an antibiotic medicine, take it as told by your doctor. Do not stop taking it even if you start to feel better. General instructions ? Make sure you: ? Pee until your bladder is empty. ? Do not hold pee for a long time. ? Empty your bladder after sex. ? Wipe from front to back after peeing or pooping if you are a female. Use each tissue one time when you wipe. ? Drink enough fluid to keep your pee pale yellow. ? Keep all follow-up visits. Contact a doctor if: ? You do not get better after 1?2 days. ? Your symptoms go away and then come back. Get help right away if: ? You have very bad back pain. ? You have very bad pain in your lower belly. ? You have a fever. ? You have chills. ? You feeling like you will vomit or you vomit. Summary ? A urinary tract infection (UTI) is an infection of any part of the urinary tract. ? This condition is caused by germs in your genital area. ? There are many risk factors for a UTI. ? Treatment includes antibiotic medicines. ? Drink enough fluid to keep your pee pale yellow. This information is not intended to replace advice given to you by your health care provider. Make sure you discuss any questions you have with your health care provider. Document Revised: 05/13/2021 Document Reviewed: 05/13/2021 [employer] Patient Education ? 2022 [employer] Obstetrics and Gynecology Urinary Tract Infection, Adult A urinary tract infection (UTI) is an infection of any part of the urinary tract. The urinary tract includes: ? The kidneys. ? The ureters. ? The bladder. ? The urethra. These organs make, store, and get rid of pee (urine) in the body. What are the causes? This infection is caused by germs (bacteria) in your genital area. These germs grow and cause swelling (inflammation) of your urinary tract. What increases the risk? The following factors may make you more likely to develop this condition: ? Using a small, thin tube (catheter) to drain pee. ? Not being able to control when you pee or poop (incontinence). ? Being female. If you are female, these things can increase the risk: ? Using these methods to prevent : ? A medicine that kills sperm (spermicide). ? A device that blocks sperm (diaphragm). ? Having low levels of a female hormone (estrogen). ? Being . You are more likely to develop this condition if: ? You h (more content not included)... Normal [facility] ABO/Rhon 06-14-2023 ABO/Rh Positive Invalid Interpretation Code [facility] Comment on above: Performed By: #### 2 [id number] ####[facility] [address] [place] [address] Auto Diffon 06-14-2023 Basophils/100 WBC (Bld) 0.8 % Normal 0.0-2.0 [facility] Comment on above: Order Comment: Order Added by Discern Expert. Performed By: #### 2 177916, [id number], 4777527, 3513744, 5485175, 8172987 #### [facility] Laboratory [address] [place] [address] Basophils/Leukocytes Auto (Bld) [Pure # fraction] 0.0 E9/L Normal 0.0-0.2 [facility] Comment on above: Order Comment: Order Added by Discern Expert. Performed By: #### 2 229703, 11160381, 8647743, 1306169, 3759156, 1505732 #### [facility] Laboratory [address] [place] [address] Eosinophils/100 WBC (Bld) 1.9 % Normal 0.0-8.0 [facility] Comment on above: Order Comment: Order Added by Discern Expert. Performed By: #### 2 949710, 51813245, 4689549, 2382636, 0175397, 8155166 #### [facility] [address] [place] [address] Eosinophils/Leukocytes Auto (Bld) [Pure # fraction] 0.1 E9/L Normal 0.0-0.5 [facility] Comment on above: Order Comment: Order Added by Discern Expert. Performed By: #### 2 040107, 64867124, 0860369, 1420792, 4987043, 4188302 #### [facility] [address] [place] [address] Lymphocytes/100 WBC (Bld) 24.5 % Normal 14.0-50.0 [facility] Comment on above: Order Comment: Order Added by Discern Expert. Performed By: #### 2 080580, 57458442, 6631774, 9899427, 5512964, 1956483 #### [facility] [address] [place] [address] Lymphocytes/Leukocytes Auto (Bld) [Pure # fraction] 1.3 E9/L Normal 1.0-4.0 [facility] Comment on above: Order Comment: Order Added by Discern Expert. Performed By: #### 2 611110, 92308094, 7817767, 8181399, 8536087, 3889971 #### [facility] [address] [place] [address] Monocytes/100 WBC (Bld) 7.8 % Normal 4.0-14.0 [facility] Comment on above: Order Comment: Order Added by Discern Expert. Performed By: #### 2 463236, 60736454, 5630290, 0627127, 6372998, 2401697 #### [facility] [address] [place] [address] Monocytes/Leukocytes Auto (Bld) [Pure # fraction] 0.4 E9/L Normal 0.2-1.0 [facility] Comment on above: Order Comment: Order Added by Discern Expert. Performed By: #### 2 288018, 40912953, 2264771, 7026316, 8117619, 0150249 #### [facility] [address] [place] [address] Neutrophils/100 WBC (Bld) 65.0 % Normal 36.0-75.0 [facility] Comment on above: Order Comment: Order Added by Discern Expert. Performed By: #### 2 820537, 35713891, 3513414, 7465795, 4615343, 9830631 #### [facility] [address] [place] [address] Neutrophils/Leukocytes Auto (Bld) [Pure # fraction] 3.5 E9/L Normal 2.0-7.5 [facility] Comment on above: Order Comment: Order Added by Discern Expert. Performed By: #### 2 883752, 95413161, 5936152, 2318418, 8322467, 6816366 #### [facility] [address] [place] [address] BLOOD BANKOrdered By: Keila Kumar on 06-14-2023 ABO/Rh Interp Positive Invalid Interpretation Code [facility] BB Subsection BMPon 06-14-2023 Creatinine [Mass/Vol] 0.5 mg/dL Normal 0.5-1.3 [facility] Comment on above: Performed By: #### 2 817430, 65209900, 7667479, 6517243, 8280128, 9534674 #### [facility] [address] [place] [address] Urea nitrogen [Mass/Vol] 6 mg/dL Normal 5-21 [facility] Comment on above: Performed By: #### 2 309708, 49929215, 0740690, 1770876, 7980583, 4890370 #### [facility] [address] [place] [address] Urea nitrogen/Creatinine [Mass ratio] 12 No Units Normal 10-20 [facility] Comment on above: Performed By: #### 2 286458, 56354012, 1448827, 5108133, 7281406, 8415441 #### [facility] [address] [place] [address] Anion gap [Moles/Vol] 10 mmol/L Normal 6-16 [facility] Comment on above: Performed By: #### 2 969334, 96920223, 2924821, 5342104, 7701153, 4135386 #### [facility] [address] [place] [address] Calcium [Mass/Vol] 8.7 mg/dL Low 8.9-11.1 [facility] Comment on above: Performed By: #### 2 492719, 54184112, 5737663, 7052755, 7970043, 7423166 #### [facility] [address] [place] [address] Chloride [Moles/Vol] 107 mmol/L Normal 101-111 [facility] Comment on above: Performed By: #### 2 436503, 40187808, 2564680, 4618349, 0618834, 1255310 #### [facility] [address] [place] [address] CO2 [Moles/Vol] 21 mmol/L Normal 21-31 [facility] Comment on above: Performed By: #### 2 007264, 09466505, 1110000, 1545380, 6061465, 0438512 #### [facility] [address] [place] [address] Glucose [Mass/Vol] 77 mg/dL Normal 55-199 [facility] Comment on above: Result Comment: If t his glucose result represents a fasting glucose, interpretation should refer to the following reference range: 55-99 mg/dL Performed By: #### 2 857357, 56415224, 7164078, 1027809, 9522279, 0537787 #### [facility] [address] [place] [address] Potassium [Moles/Vol] 3.8 mmol/L Normal 3.5-5.3 [facility] Comment on above: Performed By: #### 2 897593, 29717994, 3247163, 2631504, 7327898, 5292733 #### [facility] [address] [place] [address] Sodium [Moles/Vol] 134 mmol/L Low 135-145 [facility] Comment on above: Performed By: #### 2 419074, 78640967, 8551679, 0406133, 9015336, 1205759 #### [facility] [address] [place] [address] [facility]2023 HCG.beta subunit Qn 268249 m[IU]/mL High 1-3 [facility] Comment on above: Result Comment: GEST ATIONAL AGE HCG RANGE (mIU/mL) NON- <1-3 0.2-1 WEEKS 5-50 1-2 WEEKS 50-500 2-3 WEEKS 100-5,000 3-4 WEEKS 500-10,000 4-5 WEEKS 1,000-50,000 5-6 WEEKS 10,000-100,000 6-8 WEEKS 15,000-200,000 8-12 WEEKS 10,000-100,000 Performed By: #### 2 124670 ####[facility] [address] [place] [address] CBC w/ Auto Diffon 3 Erythrocyte distribution width (RBC) [Ratio] 12.6 % Normal 10.9-14.2 [facility] Comment on above: Performed By: #### 2 845403, 58584686, 3130902, 6839441, 7515518, 6494349 #### [facility] [address] [place] [address] Hematocrit (Bld) [Volume fraction] 39.9 % Normal 34.0-46.0 [facility] Comment on above: Performed By: #### 2 412130, 68505908, 1854229, 6307685, 4713078, 8328283 #### [facility] [address] [place] [address] Hemoglobin (Bld) [Mass/Vol] 13.4 g/dL Normal 12.0-16.0 [facility] Comment on above: Performed By: #### 2 185980, 63289280, 1631674, 4163191, 0509884, 3082896 #### [facility] [address] [place] [address] MCH (RBC) [Entitic mass] 29.8 pg Normal 27.0-34.0 [facility] Comment on above: Performed By: #### 2 116767, 67117784, 1306521, 9422316, 6606142, 7521731 #### [facility] [address] [place] [address] MCHC (RBC) [Mass/Vol] 33.6 g/dL Normal 31.4-36.0 [facility] Comment on above: Performed By: #### 2 693311, 04715131, 9455288, 7282274, 8440711, 4524807 #### [facility] [address] [place] [address] MCV (RBC) [Entitic vol] 88.8 fL Normal 80.0-100.0 [facility] Comment on above: Performed By: #### 2 478686, 86996240, 3102039, 8177605, 8263618, 3172052 #### [facility] [address] [place] [address] Platelet mean volume (Bld) [Entitic vol] 8.4 fL Normal 6.4-10.8 [facility] Comment on above: Performed By: #### 2 818629, 42847270, 1387064, 0836727, 5555223, 3514883 #### [facility] [address] [place] [address] Platelets (Bld) [#/Vol] 225.0 E9/L Normal 150.0-500.0 [facility] Comment on above: Performed By: #### 2 052671, 71797136, 1440773, 0955842, 1604707, 0238098 #### [facility] Laboratory [address] [place] [address] RBC (Bld) [#/Vol] 4.5 E12/L Normal 4.3-5.9 [facility] Comment on above: Performed By: #### 2 351194, 73461734, 1456125, 2391405, 3719497, 2171916 #### [facility] [address] [place] [address] WBC corrected for nucl RBC Auto (Bld) [#/Vol] 5.4 E9/L Normal 4.0-11.0 [facility] Comment on above: Performed By: #### 2 368998, 46590824, 2454834, 6890478, 0522341, 9406630 #### [facility] [address] [place] [address] CHEMISTRYOrdered By: SYSTEM SYSTEM on 06-14-2023 Albumin [...] 77 mg/dL Normal 55 - 199 mg/dL [facility] Remisol HCG.beta subunit Qn 705953 m[IU]/mL High 1 - 3 mIU/mL [facility] Lipase [Catalytic activity/Vol] 28 U/L Normal 13 - 58 unit/L [facility] Potassium [Moles/Vol] 3.8 mmol/L Normal 3.5 - 5.3 mmol/L [facility] Protein [Mass/Vol] 6.8 g/dL Normal 6.0 - 7.8 gm/dL [facility] Remisol Sodium [Moles/Vol] 134 mmol/L Low 135 - 145 mmol/L [facility] Remisol Urea nitrogen [Mass/Vol] 6 mg/dL Normal 5 - 21 mg/dL [facility] Remisol Urea nitrogen/Creatinine [Mass ratio] 12 mg/mg Normal 10 - 20 [facility] Remisol Consent for Treatmenton 08 Consent for Treatment [id number] Normal [facility] ED Clinical Summaryon 2022 ED Clinical Summary (Inserted Image. Maryann ble to display) [place] [id number] ED Clinical Summary Person Information Name: SUSAN BRO [facility] Age: 27 Years : 1995 Sex: Female Language: Slovenian PCP: Luis Carlos Jung MD Marital Status: Single Phone: [phone] Visit Id: Visit Reason: Abdominal pain; 12 WKS , LOWER RIGHT ABDOMINAL PAIN Speciality: Acuity: 3 Enc Type: Emergency Med Service: Emergency Arrival: 06/14/2023 08:31:43 Discharge: 06/14/2023 10:35:26 LOS: 000 02:04 Checkin: 06/14/2023 08:31:43 Checkout: 06/14/2023 10:35:26 Dispo Type: Eloped EVENTS: Event Name Event Status Request Date/Time Start Date/Time Complete Date/Time Arrive Complete 06/14/2023 08:31:43 06/14/2023 08:31:43 06/14/2023 08:31:43 Document Home Meds Request 06/14/2023 08:31:43 Triage Complete 06/14/2023 08:31:43 06/14/2023 08:39:55 06/14/2023 08:39:55 Bed Assign Complete 06/14/2023 08:34:05 06/14/2023 08:34:05 06/14/2023 08:34:05 Dr Exam Complete 06/14/2023 08:34:05 06/14/2023 08:35:27 06/14/2023 08:35:27 RN Exam Complete 06/14/2023 08:34:05 06/14/2023 08:42:20 06/14/2023 08:42:20 Registration Complete 06/14/2023 08:35:27 06/14/2023 09:11:59 06/14/2023 09:11:59 Dr Exam Complete 06/14/2023 08:35:31 06/14/2023 08:35:31 06/14/2023 08:35:31 US Complete 06/14/2023 08:42:55 06/14/2023 09:20:06 06/14/2023 09:44:42 Meds Admin Cancel 06/14/2023 08:42:55 06/14/2023 10:18:09 Pending Labs Complete 06/14/2023 08:42:55 06/14/2023 10:34:58 Blood Collect Request 06/14/2023 08:42:55 Lab Complete 06/14/2023 08:42:55 06/14/2023 10:34:58 Urine Collect Complete 06/14/2023 08:42:55 06/14/2023 10:34:58 Pending Labs Complete 06/14/2023 09:00:33 06/14/2023 09:00:33 06/14/2023 09:37:23 Lab Complete 06/14/2023 09:00:33 06/14/2023 09:00:33 06/14/2023 09:37:23 Pending Labs Complete 06/14/2023 09:05:04 06/14/2023 09:05:04 06/14/2023 09:05:13 Lab Complete 06/14/2023 09:05:04 06/14/2023 09:05:04 06/14/2023 09:05:13 Reg Complete Request 06/14/2023 09:11:59 Reg Bed Request Complete 06/14/2023 09:11:59 06/14/2023 09:11:59 06/14/2023 09:11:59 Pending Labs Complete 06/14/2023 09:30:02 06/14/2023 09:30:02 06/14/2023 09:30:02 Discharge Complete 06/14/2023 10:35:40 06/14/2023 10:35:40 06/14/2023 10:35:40 Transfer Complete 06/14/2023 10:35:40 06/14/2023 10:35:40 06/14/2023 10:35:40 ADDRESS: [facility] [id number] PHYS DOC NOTES: MEDICAL INFORMATION: Prescriptions Given: Medications to Continue with No Changes Other Medications famotidine (Pepcid 20 mg Tab) 1 Tablets By Mouth every day. Refills: 0. ibuprofen (ibuprofen 600 mg Tab) 1 Tablets By Mouth every 6 hours. Refills: 0. levothyroxine (levothyroxine 50 mcg (0.05 mg) Tab) 1 Tablets By Mouth every day. multivitamin, ( Multivitamins) 1 Tablets By Mouth every day. ondansetron (Zofran ODT 4 mg Tab-Dis) 1 Tablets By Mouth every 8 hours. Refills: 0. PATIENT EDUCATION INFORMATION: Instructions: Follow up: DIAGNOSIS: Normal [facility] ED Note-Physicianon 06-14-20 ED Note-Physician Basic Information Time Seen: Jos Ugalde PA-C 06/14/2023 08:35 History of Present Illness 27-year-old female comes to the ED for evaluation of abdominal pain. She states she is approximately 12 weeks . She presents complaining of left lower quadrant abdominal pain that started this morning. No vaginal discharge or bleeding. No difficulty with urination. No fever, chills. She has had some nausea and vomiting but states has been ongoing issue throughout her , no acute changes today. She denies any previous abdominal surgeries. No prior treatments. Review of Systems A 10 point review of systems is negative except as noted above. Medical and Surgical History: Reviewed and noted Social history: Lives at home Tobacco: Denies Physical Exam Vitals & Measurements T: 37 ?C(Oral) HR: 69(Peripheral) RR: 18 BP: 110/70 SpO2: 100% HT: 162 cm WT: 76 kg BMI: 28.96 Nurses notes and vital signs reviewed and patient is not hypoxic. General: The patient appears well and in no significant distress Patient is resting comfortably on the exam bed. Skin: Warm, dry, no pallor noted. Head: Atraumatic. Neck: No JVD. Eye: Normal conjunctiva. Ears, Nose, Mouth, and Throat: Moist mucous membranes Cardiovascular: Strong distal pulses. Chest wall: Respiratory: Respirations are nonlabored. Lungs clear to auscultation. Back: Normal range of motion, no CVA tenderness. Musculoskeletal: Normal ROM with no gross deformity. Gastrointestinal: Abdomen is soft throughout. There is mild lower left-sided tenderness. No suprapubic tenderness. No guarding, rebound or rigidity. No distention. Urological: Neurological: Awake and alert. No focal deficits. Follows commands. GCS 15. Psychiatric: Cooperative. Medical Decision Making Patient presents with abdominal pain in . Laboratory studies reviewed and noted. She was sent for ultrasound which is discussed with insulator technician. There is an intrauterine measuring 12 weeks, 4 days, with normal heart rate. When I went back into discussed ultrasound findings with the patient she had eloped from the ED Assessment/Plan 1. Abdominal pain (R10.9: Unspecified abdominal pain) Orders: ABO/Rh Automated Diff Basic Metabolic Panel Beta hCG Quantitative CBC w/ Auto Diff eGFR Extra Blue Tube Extra SST Tube Hepatic Function Panel Lipase Level UA With Cult Reflex US 1st Trimester Disposition Plan Patient Discharge Condition Patient eloped prior to completing her ED work-up Discharge Prescription List Prescriptions No active prescription medications Follow-up No qualifying data available Attestation Patient seen and evaluated by the physician assistant product manager. Attending physician was present in the emergency department and supervised care. This visit was performed by both the physician and an APC. I performed all aspects of the MDM as documented. This report was transcribed using voice recognition software. Every effort was made to ensure accuracy, however, inadvertently computerized flue lining dipper mistakes may be present. Appropriate healthcare PPE was used in evaluating this patient. The patient was placed in a mask. The healthcare provider was wearing mask, gloves, and utilizing proper hand hygiene. All equipment was properly cleansed. Problem List/Past Medical History Ongoing [place] Pre-employment examination Smoker 16-APR-2014 12:37:00<$> Historical Bacterial meningitis Extreme obesity 16-APR-2014 12:48:08<$> Headache None Procedure/Surgical History Cholecystotomy. 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 Cigarettes, Yes, 08/18/2022 Family History Asthma: Brother. Lab Results WBC: 5.4 E9/L (06/14/23 08:55:00) RBC: 4.5 E12/L (06/14/23 08:55:00) HGB: 13.4 gm/dL (06/14/23 08:55:00) Hct: 39.9 % (06/14/23 08:55:00) MCV: 88.8 fL (06/14/23 08:55:00) MCH: 29.8 pg (06/14/23 08:55:00) MCHC: 33.6 gm/dL (06/14/23 08:55:00) RDW: 12.6 % (06/14/23 08:55:00) Platelet: 225 E9/L (06/14/23 08:55:00) MPV: 8.4 fL (06/14/23 08:55:00) Neutro Auto: 65 % (06/14/23 08:55:00) Lymph Auto: 24.5 % (06/14/23 08:55:00) [place] Auto: 7.8 % (06/14/23 08:55:00) Eos Auto: 1.9 % (06/14/23 08:55:00) Basophil Auto: 0.8 % (08 (more content not included)... Normal [facility] Comment on above: Result Comment: Elec tronically Signed By: Jos Ugalde PA-C\.br\Date and Time Signed: 06/14/23 11:58 EDT\.br\Electronically Co-Signed By: Kristian Guillermo DO\.br\Date and Time Co-Signed: 06/14/23 17:02 EDT ED Patient Education Noteon 06-14-2023 ED Patient Education Note Normal [facility] ED Patient Summaryon 023 ED Patient Summary (Inserted Image. Maryann ble to display) [place] [id number] Patient Discharge Instructions Person Information Name: RONEN BRONICChristopher Byrd Age: 27 Years Arrival Date: 06/14/2023 08:31:43 Discharge Diagnosis: Primary Care Physician: Luis Carlos Jung MD Provider Information Primary Provider: Kristian Guillermo DO [employer] Vendor:Jos Ugalde PA-C The exam and treatment you received in the Emergency Department were for an urgent problem and are not intended as complete care. It is important that you follow up with a doctor, nurse practitioner, or physician?s assistant product manager for ongoing care. If your symptoms become worse or you do not improve as expected and you are unable to reach your usual health care provider, you should return to the Emergency Department. We are available 24 hours a day. SUSAN BRO has been given the following list of patient education materials, prescriptions and follow-up instructions: Follow-up Instructions: In the event that this physician does not participate in your insurance network, please consult with your insurance company to find a nearby participating provider. Patient Education Materials: A MESSAGE TO ALL PATIENTS REGARDING OPIOIDS PRESCRIPTION OPIOIDS: WHAT YOU NEED TO KNOW Prescription opioids can be used to help relieve fiznpvhi-xd-znytwm pain and are often prescribed following a surgery or injury, or for certain health conditions. These medications can be an important part of the treatment but also come with serious risks. It is important to work with your healthcare provider to make sure you are getting the safest, most effective care. WHAT ARE THE RISKS AND SIDE EFFECTS OF OPIOID USE? Prescription opioids carry serious risks of addiction and overdose, especially with prolonged use. An opioid overdose, often marked by slowed breathing, can cause sudden . The use of prescription opioids can have a number of side effects as well, even when taken as directed: ? Tolerance?meaning you might need to take more of the medication for the same pain relief ? Physical dependence?meaning you have symptoms of withdrawal when a medication is stopped ? Increased sensitivity to pain ? Constipation ? Nausea, vomiting, and dry mouth ? Sleepiness and dizziness ? Confusion ? Depression ? Low levels of testosterone that can result in lower sex drive, energy, and strength ? Itching and sweating RISKS ARE GREATER WITH: ? History of drug misuse, substance use disorder, or overdose ? Mental health conditions (such as depression or anxiety) ? Sleep apnea ? Older age (65 years and older) ? Avoid alcohol while taking prescription opioids. Also, unless specifically advised by your health care provider, medications to avoid include: ? Benzodiazepines (such as Xanax or Valium) ? Muscle relaxants (such as Soma or Flexeril) ? Hypnotics (such as Ambien or Lunesta) ? Other prescription opioids KNOW YOUR OPTIONS Talk to your health care provider about ways to manage your pain that don?t involve prescription opioids. Some of these options may actually work better and have fewer risks and side effects. Options may include: ? Pain relievers such as acetaminophen, ibuprofen, and naproxen ? Some medication that are also used for depression or seizures ? Physical therapy and exercise ? Cognitive behavioral therapy, a psychological, goal-directed approach, in which patients learn how to modify physical, behavioral, and emotional triggers of pain and stress. IF YOU ARE PRESCRIBED OPIOIDS FOR PAIN: ? Never take opioids in greater amounts or more often than prescribed. ? Follow up with your primary health care provider. o Work together to create a plan on how to manage your pain. o Talk about ways to help manage your pain that don?t involve prescription opioids. o Talk about any and all concerns and side effects. ? Help prevent misuse and abuse o Never sell or share prescription opioids. o Never use another person?s prescription opioids. ? Store prescription opioids in a secure place and out of reach of others (this may include visitors, children, friends, and family). ? Safely dispose of unused prescription opioids: Find your community drug take-back program or your pharmacy mail-back program, or flush them down the toilet, following guidance from the Food and Drug Administration (www.fda.gov/Drugs/Resour cesForYou). ? Visit www.cdc.gov/drugoverdose to learn about the risks of opioids abuse and overdose. ? If you believe you may be struggling with addiction, tell your health personal caregiver and ask for guidance or call [facility]?S National Helpline at 3-947-163-JEGP. v Source: US Department of Health and Human Services/Center for Disease Control & Prevention [facility] Medications Given: Medication Dose Route No medicati (more content not included)... Normal [facility] HEMATOLOGYOrdered By: SYSTEM SYSTEM on [...] 39.9 % Normal 34.0 - 46.0 % FT HemeAutoSS Hemoglobin (Bld) [Mass/Vol] 13.4 g/dL Normal 12.0 - 16.0 gm/dL [facility] HemeAutoSS MCH (RBC) [Entitic mass] 29.8 pg Normal 27.0 - 34.0 pg FT [...] Bilirubin.indirect [Mass or moles/Vol] UTC Abnormal 0.1-0.9 [facility] Comment on above: Result Comment: Resu lt verified by Discern Rule. Performed result UTC (Unable to Calculate) was sent as an Alpha code due the inability to calculate a valid numeric value. Performed By: #### 2 147470, [id number], 9699564, 8610071, 0137184, 4659426 #### [facility] [address] [place] [address] Albumin [Mass/Vol] 3.5 g/dL Normal 3.3-5.0 [facility] Comment on above: Performed By: #### 2 256297, [id number], 7561042, 9094695, 7871326, 7559503 #### [facility] [address] [place] [address] Albumin/Globulin (S) [Mass conc ratio] 1.1 Normal 1.1-2.2 [facility] Comment on above: Performed By: #### 2 034239, 09467909, 1277738, 7598843, 3941684, 0663970 #### [facility] [address] [place] [address] ALP [Catalytic activity/Vol] 34 Int._Unit/L Normal 21-98 [facility] Comment on above: Performed By: #### 2 479025, 96365499, 1420240, 7438522, 2014428, 2143042 #### [facility] [address] [place] [address] ALT No additional P-5'-P [Catalytic activity/Vol] 13 Int._Unit/L Normal 6-46 [facility] Comment on above: Performed By: #### 2 214293, 84494093, 4388238, 5920422, 8443707, 5391149 #### [facility] [address] [place] [address] AST [Catalytic activity/Vol] 17 Int._Unit/L Normal 5-43 [facility] Comment on above: Performed By: #### 2 690206, 00654332, 9368121, 0757206, 4826516, 5224062 #### [facility] [address] [place] [address] Bilirubin [Mass/Vol] 0.6 mg/dL Normal 0.0-1.1 [facility] Comment on above: Performed By: #### 2 078745, 99101868, 6377880, 8742319, 5804576, 7851186 #### [facility] [address] [place] [address] Globulin (S) [Mass/Vol] 3.3 g/dL Normal 1.4-4.0 [facility] Comment on above: Performed By: #### 2 016495, 29478825, 8186152, 1595788, 7962385, 7560649 #### [facility] [address] [place] [address] Protein [Mass/Vol] 6.8 g/dL Normal 6.0-7.8 [facility] Comment on above: Performed By: #### 2 389528, 51488108, 7005343, 8267803, 0073363, 7134735 #### [facility] [address] [place] [address] Bilirubin.direct [Mass/Vol] mg/dL Normal 0.1-0.4 [facility] Comment on above: Performed By: #### 2 019802, 44751970, 6909165, 1592255, 3817851, 2975366 #### [facility] [address] [place] [address] Lipase Levelon 06-14-2023 Lipase [Catalytic activity/Vol] 28 U/L Normal 13-58 [facility] Comment on above: Performed By: #### 2 498013, 35601672, 1157084, 9200582, 1291881, 9492610 #### [facility] [address] [place] [address] Progress Note-Nurseon 2022 Progress Note-Nurse Lizet RN verbalize d she was unable to locate patient at this time Normal [facility] UA With Cult Reflexon 2022 Bacteria LM Ql (Urine sed) TRACE Normal Trace [facility] Comment on above: Performed By: #### 2 378394, 99136524, 9363664, 7348125, 0935760, 7865131 #### [facility] [address] [place] [address] Bilirubin Ql (U) Negative Normal Negative [facility] Comment on above: Performed By: #### 2 053969, 47461163, 9013513, 9424199, 7698162, 3635121 #### [facility] [address] [place] [address] Clarity (U) CLEAR Normal Clear [facility] Comment on above: Performed By: #### 2 915374, 33410910, 8130709, 8893709, 0770111, 6867019 #### [facility] [address] [place] [address] Color (U) YELLOW Normal Yellow [facility] Comment on above: Performed By: #### 2 758922, 39157969, 5827243, 8297725, 5435644, 8418568 #### [facility] [address] [place] [address] Epithelial cells.squamous LM.HPF (Urine sed) [#/Area] 3-4 Normal 0-2 [facility] Comment on above: Performed By: #### 2 092598, 88041307, 8168519, 3871596, 5802825, 7120474 #### [facility] [address] [place] [address] Glucose Test strip (U) [Mass/Vol] Negative Normal Negative [facility] Comment on above: Performed By: #### 2 242463, 37236019, 0708632, 4685846, 2142819, 5315005 #### [facility] [address] [place] [address] Hemoglobin Ql (U) Negative Normal Negative [facility] Comment on above: Performed By: #### 2 173477, 05700715, 4274290, 8080642, 0237447, 9179899 #### [facility] [address] [place] [address] Ketones (U) [Mass/Vol] Negative Normal Negative [facility] Comment on above: Performed By: #### 2 241342, 40177888, 6129938, 3599862, 3873420, 6069539 #### [facility] [address] [place] [address] [place].plasma/[place] .RBC (Bld) [Mass ratio] 0-3 Normal 0-3 [facility] Comment on above: Performed By: #### 2 226126, 31050031, 8941426, 0970303, 1699935, 8492393 #### [facility] [address] [place] [address] Mucus Ql (Urine sed) TRACE Normal [facility] Comment on above: Performed By: #### 2 448086, 07430233, 6885135, 3870777, 5678429, 2863592 #### [facility] [address] [place] [address] Nitrite Ql (U) Negative Normal Negative [facility] Comment on above: Performed By: #### 2 938302, 45610082, 5643635, 1765501, 7866830, 0839194 #### [facility] [address] [place] [address] pH (U) 6.5 [pH] Invalid Interpretation Code 5.0-9.0 [facility] Comment on above: Performed By: #### 2 535203, 67169129, 4920236, 5151140, 6168217, 5096417 #### [facility] [address] [place] [address] Protein (U) [Mass/Vol] Negative Normal Negative [facility] Comment on above: Performed By: #### 2 151438, 69814151, 6582178, 1259850, 1163688, 5960483 #### [facility] [address] [place] [address] Specific gravity (U) [Rel density] 1.015 Invalid Interpretation Code 1.005-1.030 [facility] Comment on above: Performed By: #### 2 984442, 98385048, 7160583, 0952033, 0556773, 7554121 #### [facility] [address] [place] [address] Type of Urine collection method Clean Catch Normal [facility] Comment on above: Performed By: #### 2 967451, 23797351, 5337401, 1846254, 3225860, 7873922 #### [facility] [address] [place] [address] Urobilinogen Qn (U) 0.2 {Rola'U}/dL Normal 0.0-1.0 [facility] Comment on above: Performed By: #### 2 460296, 49204837, 1437357, 7611635, 4625191, 7675180 #### [facility] [address] [place] [address] WBC Auto Ql (U) TRACE Abnormal Negative [facility] Comment on above: Performed By: #### 2 945471, 16587110, 1309156, 7825784, 5980673, 9941314 #### [facility] [address] [place] [address] WBC LM.HPF (Urine sed) [#/Area] 0-5 Normal 0-5 [facility] Comment on above: Performed By: #### 2 596184, 49392207, 3755790, 3032368, 3660726, 4647122 #### [facility] [address] [place] [address] URINALYSISOrdered By: An Mccarty on 06-14-2023 Bacteria [...] AM) Normal Negative [facility] UA Auto SS [place].plasma/[place] .RBC (Bld) [Mass ratio] 0-3 /HPF Normal [...] [facility] UA Auto SS Urobilinogen Qn (U) 0.9439800 {Rola'U}/dL Normal 0.0 - 1.0 EU/dL [facility] UA Auto SS WBC Auto Ql (U) Trace *ABN* (06/14/23 10:13 AM) Invalid Interpretation Code Negative [facility] UA Auto SS WBC LM.HPF (Urine sed) [#/Area] 0-5 /HPF Normal 0-5/HPF [facility] UA Auto SS US 1st Trimesteron 06-14-2023 US 1st Trimester Exam Date/Time: 06/14/2023 09:44 EDT Reason for Exam: Other (please specify) Report IMPRESSION: SINGLE LIVE INTRAUTERINE CORRESPONDING TO 12 weeks 4 days, +/- 1 week. APPROPRIATE GROWTH FROM 05/21/2023. NO OTHER FINDINGS OF CONCERN IDENTIFIED. EXAM: US 1st Trimester DATE: 06/14/2023 9:20 AM CLINICAL HISTORY: Gestational Age by LMP: 12 weeks, 4 days COMPARISON: 05/21/2023. TECHNIQUE: Transabdominal ultrasound was performed of the pelvis. FINDINGS: A gestational sac is present within the central aspect of the uterine body/fundus, without significant surrounding subchorionic hemorrhage. The crown-rump length is nearly 6 cm, which corresponds to 12 weeks 4 days, +/- 1 week. The estimated date of delivery by measurements is: 12/23/2023. cardiac activity measures approximately 156 bpm, without visualized arrhythmia. There is no significant free fluid, or other findings of concern identified. The right ovary is not identified. The left ovary appears within normal limits, with measurements and estimated volume: Left Ovary Length: 3.0 cm Left Ovary Width: 2.7 cm Left Ovary Height: 1.6 cm Left Ovary Volume: 6.8 cm3 Report Ordering Provider: Jos Ugalde FINAL REPORT Dictated: 06/14/2023 9:50 am Arnoldo Holm MD Signed (Electronic Signature): 06/14/2023 9:50 am Signed by: Arnoldo Holm MD Transcribed by: RINKU Technologist: CASANDRA Technical Comments LMP : 02/21/23?? Irregular History 2 Normal [facility] eGFRon 06-14-2023 GFR/1.73 sq M.predicted among non-blacks MDRD (S/P/Bld) [Vol rate/Area] 130 mL/min/1.73 m2 Normal >=59 [facility] Comment on above: Order Comment: Order added by Discern Expert. Result Comment: Shipping Clerk lucy kidney disease could be indicated at eGFR's of less than 60 mL/min/1.73m2. Kidney failure is indicated at less than 15 mL/min/1.73m2. Performed By: #### 2 032855, 11351731, 7726313, 9458311, 6795417, 7217016 #### [facility] [address] [place] [address] CHEMISTRYOrdered By: SYSTEM SYSTEM on 06-12-2023 TSH Qn 3.80 m[IU]/L Normal 0.34 - 5.60 mcIU/mL FT Remisol Consent for Treatmenton 05-16 Consent for Treatment [id number]#[id number]:12 7 Normal [facility] Physician Orderon 06-12-2023 Physician Order [id number]#[id number]:12 7 Normal [facility] TSHon 06-12-2023 TSH Qn 3.80 m[IU]/L Normal 0.34-5.60 [facility] Comment on above: Performed By: #### 2 433107, 34109119, 9076647, 4257296, 7727887, 3770240 #### [facility] [address] [place] [address] BhCG Quanton 05-22-2023 HCG.beta subunit Qn 987272 m[IU]/mL High 1-3 [facility] Comment on above: Result Comment: GEST ATIONAL AGE HCG RANGE (mIU/mL) NON- <1-3 0.2-1 WEEKS 5-50 1-2 WEEKS 50-500 2-3 WEEKS 100-5,000 3-4 WEEKS 500-10,000 4-5 WEEKS 1,000-50,000 5-6 WEEKS 10,000-100,000 6-8 WEEKS 15,000-200,000 8-12 WEEKS 10,000-100,000 Performed By: #### 2 106066, 44698821, 0121650, 7702994, 7432253, 2367551 #### [facility] [address] [place] [address] Discharge Instructionson Discharge Instructions [id number]:1 27 Normal [facility] ED Clinical Summaryon 2022 ED Clinical Summary (Inserted Image. Mrayann ble to display) [address] [address] ED Clinical Summary Person Information Name: SUSAN BRO [facility] Age: 27 Years : 1995 Sex: Female Language: Slovenian PCP: Luis Carlos Jung MD Marital Status: Single Phone: [phone] Visit Id: Visit Reason: Abdominal pain - ; Chest pain; 9 WEEKS PREG - CHEST PAIN, ABD PAIN Speciality: Acuity: 2 Enc Type: Emergency Med Service: Emergency Arrival: 05/21/2023 20:37:57 Discharge: 05/21/2023 23:23:40 LOS: 000 02:46 Checkin: 05/21/2023 20:37:57 Checkout: 05/21/2023 23:23:40 Dispo Type: Home (Routine DC) EVENTS: Event Name Event Status Request Date/Time Start Date/Time Complete Date/Time Arrive Complete 05/21/2023 20:37:57 05/21/2023 20:37:57 05/21/2023 20:37:57 Document Home Meds Request 05/21/2023 20:37:57 Triage Complete 05/21/2023 20:37:57 05/21/2023 20:50:14 05/21/2023 20:50:14 EKG Complete 05/21/2023 20:40:12 05/21/2023 20:44:35 Dr Exam Complete 05/21/2023 20:43:57 05/21/2023 20:43:57 05/21/2023 20:43:57 Registration Complete 05/21/2023 20:43:57 05/21/2023 20:50:29 05/21/2023 21:00:41 Workers Comp Complete 05/21/2023 20:50:15 05/21/2023 21:13:56 05/21/2023 21:13:56 Bed Assign Complete 05/21/2023 20:50:29 05/21/2023 20:50:29 05/21/2023 20:50:29 RN Exam Complete 05/21/2023 20:50:29 05/21/2023 21:52:11 05/21/2023 21:52:11 Reg Complete Request 05/21/2023 21:00:41 Reg Bed Request Complete 05/21/2023 21:00:41 05/21/2023 21:00:41 05/21/2023 21:00:41 Meds Admin Complete 05/21/2023 21:01:18 05/21/2023 21:25:13 Pending Labs Complete 05/21/2023 21:01:18 05/21/2023 22:30:09 Lab Complete 05/21/2023 21:01:18 05/21/2023 22:30:09 Urine Collect Complete 05/21/2023 21:01:18 05/21/2023 22:30:09 US Complete 05/21/2023 21:01:18 05/21/2023 22:09:50 05/21/2023 23:00:44 Pending Labs Complete 05/21/2023 21:20:18 05/21/2023 21:20:18 05/21/2023 21:44:39 Lab Complete 05/21/2023 21:20:18 05/21/2023 21:20:18 05/21/2023 21:44:39 Pending Labs Complete 05/21/2023 21:23:37 05/21/2023 21:23:37 05/21/2023 21:23:44 Lab Complete 05/21/2023 21:23:37 05/21/2023 21:23:37 05/21/2023 21:23:44 Discharge Complete 05/21/2023 23:10:53 05/21/2023 23:23:44 05/21/2023 23:23:44 Meds Admin Complete 05/21/2023 23:14:28 05/21/2023 23:20:36 Transfer Complete 05/21/2023 23:23:44 05/21/2023 23:23:44 05/21/2023 23:23:44 ADDRESS: [facility] [id number] PHYS DOC NOTES: MEDICAL INFORMATION: Prescriptions Given: New Medications [facility], [address] [facility], [place] [id number], [phone] cephalexin (Keflex 500 mg Cap) 1 Capsules By Mouth 3 times a day for 5 Days. Refills: 0. famotidine (Pepcid 20 mg Tab) 1 Tablets By Mouth every day. Refills: 0. ondansetron (Zofran ODT 4 mg Tab-Dis) 1 Tablets By Mouth every 8 hours. Refills: 0. Medications to Continue with No Changes Other Medications ibuprofen (ibuprofen 600 mg Tab) 1 Tablets By Mouth every 6 hours. Refills: 0. levothyroxine (levothyroxine 50 mcg (0.05 mg) Tab) 1 Tablets By Mouth every day. multivitamin, ( Multivitamins) 1 Tablets By Mouth every day. PATIENT EDUCATION INFORMATION: Instructions: Nonspecific Chest Pain, Adult, Otzw-eh-Cnpe; Nausea and Vomiting, Adult, Vohl-jh-Yxqr; Abdominal Pain During , Tnbk-xl-Yqdd Follow up: With: Address: When: Luis Carlos HEARD, [facility] [address], [place] [address] Business (1) In 3 days 05/24/2023 Comments: Take the Pepcid once daily until you have completed the course. You can use the Zofran every 6 hours as needed for nausea and vomiting. Please follow-up with your primary care doctor next 2 to 3 days. Please return to the ED for any new or worsening symptoms. DIAGNOSIS: Abdominal pain, acute; Chest pain; N&V (nausea and vomiting); Vaginal bleeding in Normal [facility] ED Note-Physicianon 05-22-20 ED Note-Physician Basic Information Time Seen: Gopi Rodriguez DO 05/21/2023 20:43 Chief Complaint Pt. presents to the ed with c/o chest pain and lower abdominal pain that started around 0730, pt. states it is constant and nothing makes it better or worse. pt. states stabbing pain , pt. is 9 weeks and sees Fabiana History of Present Illness Patient is a 27-year-old female currently 9 weeks gestation following with Dr. Jung presenting to the ED for evaluation of nausea, vomiting, chest pain in addition to lower abdominal pain. Patient states the symptoms started around 7:30 AM with burning chest pain. Patient states that migrated to the right lower quadrant. Patient also notes that she has been having vaginal bleeding for the last 3 weeks. She states she seen Dr. Jung regarding this and was told that this was normal. Denies any fevers, chills, dizziness or lightheadedness. Patient states that symptoms are progressively worsening. Patient has been taking B6 at home with minimal improvement of her nausea. Review of Systems A 10 point review of systems is negative except as noted above. Medical and Surgical History: Reviewed and noted Social history: Lives at home Tobacco: Denies Physical Exam Vitals & Measurements T: 36.9 ?C(Tympanic) HR: 60(Peripheral) RR: 20 BP: 109/73 SpO2: 100% HT: 162.56 cm WT: 75.3 kg BMI: 28.49 General: Well developed, non toxic appearing, no acute distress HEENT: Head atraumatic, Mucosa moist, hearing grossly normal Neck: No JVD, tracheal deviation Cardiac: Regular rate, rhythm, no murmurs, or gallops, 2+ radial pulses Respiratory: Lungs clear to auscultation B/L, normal respiratory effort Abdomen: Soft, mild lower abdominal tenderness on examination no rebound or guarding, no peritoneal signs Extremities: No edema noted in the LE B/L, no tenderness to palpation Neurologic: Alert and oriented, speech clear Skin: No rashes or lesions Psych: Appropriate mood and behavior Medical Decision Making MEDICAL DECISION MAKING Number and Complexity of Problems Differential Diagnosis: [] [facility] Data External documents reviewed: [] My EKG interpretation: [] My CT interpretation: [] My X-ray interpretation: [] My Ultrasound interpretation: [] Decision rules/scores evaluated: [] Discussed with: [] Treatment and Disposition ED Course: Patient is a 27-year-old female presenting to the ED for evaluation of chest pain, abdominal pain, nausea, vomiting. Patient is nontoxic and on arrival, no acute distress. Laboratory evaluation is obtained patient is given Zofran, GI cocktail in addition to Pepcid. Patient is also given IV fluids. Due to patient's lower abdominal pain in addition to vaginal bleeding pelvic ultrasound is obtained. EKG without any acute abnormalities. Patient's laboratory evaluation shows potassium mildly low at 3.2 but is otherwise unremarkable quantitative hCG is normal at 157,691 urinalysis with asymptomatic bacteriuria, trace bacteria. Due to this patient is started on Keflex. Pelvic ultrasound shows intrauterine gestation at 9 weeks with a heart rate of 160, no acute abnormalities. No evidence of subchorionic hemorrhage. Patient is feeling improved. She is discharged home with a prescription for Pepcid, Zofran, Keflex. She is to return to the ED for any new or worsening symptoms. Shared decision making: [] Code status: [] Assessment/Plan Abdominal pain, acute (R10.9: Unspecified abdominal pain) Chest pain (R07.9: Chest [...] 15 cap(s), Refills(s) 0, Pharmacy: [facility], 162.6, cm, 05/21/23 20:50:00 EDT, Height/Length Dosing, 75.3, kg, 05/21/23 20:50:00 EDT, Weight Dosing famotidine, 20 mg = 2 mL, Soln-IV, IV Push, Once, Stop date 05/21/23 21:00:00 EDT, STAT, Start date 05/21/23 21:00:00 EDT, 05/21/23 21:00:00 EDT famotidine, 20 mg = 1 tab(s), Oral, Daily, # 14 tab(s), Refills(s) 0, Pharmacy: [facility], 162.6, cm, 05/21/23 20:50:00 EDT, Height/Length Dosing, 75.3, kg, 05/21/23 20:50:00 EDT, Weight Dosing ondansetron, 4 mg = 2 mL, Injection, IV Push, Once, Stop date 05/21/23 21:00:00 EDT, STAT, Start date 05/21/23 21:00:00 EDT, 05/21/23 21:00:00 EDT ondansetron, 4 mg = 1 tab(s), Oral, q8hr, # 12 tab(s), Refills(s) 0, Pharmacy: [facility], 162.6, cm, 05/21/23 20:50:00 EDT, Height/Length Dosing, 75.3, kg, 05/21/23 20:50:00 EDT, Weight Dosing Sodium Chloride 0.9% intravenous solution, 1,000 (more content not included)... Normal [facility] Comment on above: Result Comment: Elec tronically Signed By: Gopi Rodriguez DObr\Date and Time Signed: 05/21/23 23:17 EDT ED Patient Education Noteon 05-22-2023 ED Patient Education Note Gastroenterology Nonspecific Chest Pain Chest pain can be caused by many different conditions. Some causes of chest pain can be life-threatening. These will require treatment right away. Serious causes of chest pain include: ? Heart attack. ? A tear in the body's main blood vessel. ? Redness and swelling (inflammation) around your heart. ? Blood clot in your lungs. Other causes of chest pain may not be so serious. These include: ? Heartburn. ? Anxiety or stress. ? Damage to bones or muscles in your chest. ? Lung infections. Chest pain can feel like: ? Pain or discomfort in your chest. ? Crushing, pressure, aching, or squeezing pain. ? Burning or tingling. ? Dull or sharp pain that is worse when you move, cough, or take a deep breath. ? Pain or discomfort that is also felt [...] pain. Follow these instructions at home: Medicines ? Take dhsa-nbq-uplsuyi and prescription medicines only as told by your doctor. ? If you were prescribed an antibiotic medicine, take it as told by your doctor. Do not stop taking the antibiotic even if you start to feel better. Lifestyle ? Rest as told by your doctor. ? Do not use any products that contain nicotine or tobacco, such as cigarettes, e-cigarettes, and chewing tobacco. If you need help quitting, ask your doctor. ? Do not drink alcohol. ? Make lifestyle changes as told by your doctor. These may include: ? Getting regular exercise. Ask your doctor what activities are safe for you. ? Eating a heart-healthy diet. A diet and child nutrition director (dietitian) can help you to learn healthy eating options. ? Staying at a healthy weight. ? Treating diabetes or high blood pressure, if needed. ? Lowering your stress. Activities such as yoga and relaxation techniques can help. General instructions ? Pay attention to any changes in your symptoms. Tell your doctor about them or any new symptoms. ? Avoid any activities that cause chest pain. ? Keep all follow-up visits as told by your doctor. This is important. You may need more testing if your chest pain does not go away. Contact a doctor if: ? Your chest pain does not go away. ? You feel depressed. ? You have a fever. Get help right away if: ? Your chest pain is worse. ? You have a cough that gets worse, or you cough up blood. ? You have very bad (severe) pain in your belly (abdomen). ? You pass out (faint). ? You have either of these for no clear reason: ? Sudden chest discomfort. ? Sudden discomfort in your arms, back, neck, or jaw. ? You have shortness of breath at any time. ? You suddenly start to sweat, or your skin gets clammy. ? You feel sick to your stomach (nauseous). ? You throw up (vomit). ? You suddenly feel lightheaded or dizzy. ? You feel very weak or tired. ? Your heart starts to beat fast, or it feels like it is skipping beats. These symptoms may be an emergency. Do not wait to see if the symptoms will go away. Get medical help right away. Call your local emergency services (911 in the [place] Do not drive yourself to the hospital. Summary ? Chest pain can be caused by many different conditions. The cause may be serious and need treatment right away. If you have chest pain, see your doctor right away. ? Follow your doctor's instructions for taking medicines and making lifestyle changes. ? Keep all follow-up visits as told by your doctor. This includes visits for any further testing if your chest pain does not go away. ? Be sure to know the signs that show that your condition has become worse. Get help right away if you have these symptoms. This information is not intended to replace advice given to you by your health care provider. Make sure you discuss any questions you have with your health care provider. Document Revised: 12/15/2021 Document Reviewed: 12/15/2021 [employer] Patient Education ? 2022 [employer] Nausea and Vomiting, Adult Nausea is feeling [...] enough water in your body, you may: ? Feel tired. ? Feel thirsty. ? Have a dry mouth. ? Have cracked lips. ? Pee (urinate) less often. Older adults and people with other diseases or a weak body defense system (immune system) are at higher risk for not having enough water in the body. If you feel like you may vomit or you vomit, it is important to follow instructions from your doctor about how to take care of yourself. Follow th (more content not included)... Normal [facility] ED Patient Summaryon 023 ED Patient Summary (Inserted Image. Maryann ble to display) [address] [address] Patient Discharge Instructions Person Information Name: RHIANNA, SUSAN Byrd Age: 27 Years Arrival Date: 05/21/2023 20:37:57 Discharge Diagnosis: Abdominal pain, acute; Chest pain; N&V (nausea and vomiting); Vaginal bleeding in Primary Care Physician: Luis Carlos Jung MD Provider Information Primary Provider: Gopi Rodriguez DO [employer] Vendor:None The exam and treatment you received in the Emergency Department were for an urgent problem and are not intended as complete care. It is important that you follow up with a doctor, nurse practitioner, or physician?s assistant product manager for ongoing care. If your symptoms become worse or you do not improve as expected and you are unable to reach your usual health care provider, you should return to the Emergency Department. We are available 24 hours a day. SUSAN BRO has been given the following list of patient education materials, prescriptions and follow-up instructions: Follow-up Instructions: With: Address: When: Luis Carlos Jung [address] [place] [address] Business (1) In 3 days 05/24/2023 Comments: Take the Pepcid once daily until you have completed the course. You can use the Zofran every 6 hours as needed for nausea and vomiting. Please follow-up with your primary care doctor next 2 to 3 days. Please return to the ED for any new or worsening symptoms. In the event that this physician does not participate in your insurance network, please consult with your insurance company to find a nearby participating provider. Patient Education Materials: Nonspecific Chest Pain, Adult, Rhwg-fl-Qnoh; Nausea and Vomiting, Adult, Ykrg-wm-Oybw; Abdominal Pain During , Oudv-qb-Nsgj A MESSAGE TO ALL PATIENTS REGARDING OPIOIDS PRESCRIPTION OPIOIDS: WHAT YOU NEED TO KNOW Prescription opioids can be used to help relieve qnlgyell-dg-rjmwrf pain and are often prescribed following a surgery or injury, or for certain health conditions. These medications can be an important part of the treatment but also come with serious risks. It is important to work with your healthcare provider to make sure you are getting the safest, most effective care. WHAT ARE THE RISKS AND SIDE EFFECTS OF OPIOID USE? Prescription opioids carry serious risks of addiction and overdose, especially with prolonged use. An opioid overdose, often marked by slowed breathing, can cause sudden . The use of prescription opioids can have a number of side effects as well, even when taken as directed: ? Tolerance?meaning you might need to take more of the medication for the same pain relief ? Physical dependence?meaning you have symptoms of withdrawal when a medication is stopped ? Increased sensitivity to pain ? Constipation ? Nausea, vomiting, and dry mouth ? Sleepiness and dizziness ? Confusion ? Depression ? Low levels of testosterone that can result in lower sex drive, energy, and strength ? Itching and sweating RISKS ARE GREATER WITH: ? History of drug misuse, substance use disorder, or overdose ? Mental health conditions (such as depression or anxiety) ? Sleep apnea ? Older age (65 years and older) ? Avoid alcohol while taking prescription opioids. Also, unless specifically advised by your health care provider, medications to avoid include: ? Benzodiazepines (such as Xanax or Valium) ? Muscle relaxants (such as Soma or Flexeril) ? Hypnotics (such as Ambien or Lunesta) ? Other prescription opioids KNOW YOUR OPTIONS Talk to your health care provider about ways to manage your pain that don?t involve prescription opioids. Some of these options may actually work better and have fewer risks and side effects. Options may include: ? Pain relievers such as acetaminophen, ibuprofen, and naproxen ? Some medication that are also used for depression or seizures ? Physical therapy and exercise ? Cognitive behavioral therapy, a psychological, goal-directed approach, in which patients learn how to modify physical, behavioral, and emotional triggers of pain and stress. IF YOU ARE PRESCRIBED OPIOIDS FOR PAIN: ? Never take opioids in greater amounts or more often than prescribed. ? Follow up with your primary health care provider. o Work together to create a plan on how to manage your pain. o Talk about ways to help manage your pain that don?t involve prescription opioids. o Talk about any and all concerns and side effects. ? Help prevent misuse and abuse o Never sell or share prescription opioids. o Never use another person?s prescription opioids. ? Store prescription opioids in a secure place and out of reach of others (this may include visitors, children, friends, and family). ? Safely dispose of unused prescription opioids: Find your [employer] drug t (more content not included)... Normal [facility] UA With Cult Reflexon 2022 Bacteria LM Ql (Urine sed) TRACE Normal Trace [facility] Comment on above: Performed By: #### 2 789040, 82744215, 9990659, 4318650, 6597267, 1315286 #### [facility] Laboratory [address] [place] [address] Bilirubin Ql (U) Negative Normal Negative [facility] Comment on above: Performed By: #### 2 411270, 48313871, 4153485, 3889305, 6071350, 4409514 #### [facility] [address] [place] [address] Clarity (U) CLEAR Normal Clear [facility] Comment on above: Performed By: #### 2 921164, 96385022, 9371988, 5993072, 6790926, 2046191 #### [facility] [address] [place] [address] Color (U) DARK YELLO Abnormal Yellow [facility] Comment on above: Performed By: #### 2 805584, 47015352, 6280290, 3536349, 0548276, 0588894 #### [facility] [address] [place] [address] Epithelial cells.squamous LM.HPF (Urine sed) [#/Area] 0-2 Normal 0-2 [facility] Comment on above: Performed By: #### 2 718194, 36650506, 4090580, 6090121, 8503699, 8018381 #### [facility] [address] [place] [address] Glucose Test strip (U) [Mass/Vol] Negative Normal Negative [facility] Comment on above: Performed By: #### 2 122665, 89013584, 1629332, 7397830, 4472162, 8487948 #### [facility] [address] [place] [address] Hemoglobin Ql (U) TRACE Abnormal Negative [facility] Comment on above: Performed By: #### 2 267406, 49053398, 9762275, 8115887, 5883388, 7975494 #### [facility] [address] [place] [address] Ketones (U) [Mass/Vol] TRACE Abnormal Negative Fi [facility] Comment on above: Performed By: #### 2 930675, 42501598, 5715518, 9043900, 5452140, 7417300 #### [facility] [address] [place] [address] [place].plasma/[place] .RBC (Bld) [Mass ratio] 4-20 Normal 0-3 [facility] Comment on above: Performed By: #### 2 320918, 35052847, 6840842, 8132121, 4183936, 1095504 #### [facility] [address] [place] [address] Mucus Ql (Urine sed) 1+ Normal Fish [facility] Comment on above: Performed By: #### 2 420556, 88298347, 4175282, 7126938, 4022015, 0931198 #### [facility] [address] [place] [address] Nitrite Ql (U) Negative Normal Negative [facility] Comment on above: Performed By: #### 2 563798, 54231397, 4316136, 7363734, 3731634, 4250536 #### [facility] [address] [place] [address] pH (U) 6.0 [pH] Invalid Interpretation Code 5.0-9.0 [facility] Comment on above: Performed By: #### 2 390960, 71411680, 7198943, 0495640, 5825238, 4045679 #### [facility] [address] [place] [address] Protein (U) [Mass/Vol] 2+ Abnormal Negative Fi [facility] Comment on above: Performed By: #### 2 780221, 94406527, 0772398, 5918170, 1841127, 9285956 #### [facility] [address] [place] [address] Specific gravity (U) [Rel density] >=1.030 Invalid Interpretation Code 1.005-1.030 [facility] Comment on above: Performed By: #### 2 076454, 62799208, 8045345, 6191568, 9851485, 1842656 #### [facility] [address] [place] [address] Type of Urine collection method Clean Catch Normal [facility] Comment on above: Performed By: #### 2 721782, 70624472, 2621939, 3023738, 3622334, 1765958 #### [facility] [address] [place] [address] Urobilinogen Qn (U) 0.2 {Rola'U}/dL Normal 0.0-1.0 [facility] Comment on above: Performed By: #### 2 810753, 51445973, 4337132, 7369984, 6285069, 1089485 #### [facility] [address] [place] [address] WBC Auto Ql (U) Negative Normal Negative [facility] Comment on above: Performed By: #### 2 464157, 37212406, 5448738, 6856987, 3525937, 5497522 #### [facility] [address] [place] [address] WBC LM.HPF (Urine sed) [#/Area] 0-5 Normal 0-5 [facility] Comment on above: Performed By: #### 2 775660, 01054859, 3502971, 9626035, 1115710, 5942856 #### [facility] [address] [place] [address] US 1st Trimesteron 05-22-2023 US 1st Trimester Exam Date/Time: 05/21/2023 23:00 EDT Reason for Exam: Threatened Miscarriage;Other (please specify) Report IMPRESSION: EARLY SINGLE LIVE INTRAUTERINE GESTATION. Composite Ultrasound Age: 9 weeks, 0 days, which corresponds to the gestational age by LMP of 9 weeks 1 day. CLINICAL HISTORY: Threatened Miscarriage. Chest pain. Lower abdominal pain. Intermittent vomiting. Denies vaginal bleeding. Gestational Age by LMP: 9 weeks, 1 days DARON from average ultrasound age: 0312/24/2023 Composite Ultrasound Age: 9 weeks, 0 days 9w1d (weeks/days) COMPARISON: 04/26/2023. COMMENT: Transabdominal images were obtained. The uterus measurements and an estimated volume are: Uterus Length: 12.0 cm Uterus Width: 6.4 cm Uterus Height: 6.9 cm Uterus Volume: 278.2 cm3 The uterus is otherwise unremarkable. A single gestational sac is identified within the uterine fundus. A yolk sac and small pole are identified within the gestational sac. The crown-rump length and the corresponding gestational age +/- 1 week are: [place] Rump Length: 2.2 cm Composite Ultrasound Age: 9 weeks, 0 days DARON from average ultrasound age: 0312/24/2023 There is no evidence of subchorionic hemorrhage. The heart rate is measured at 167 bpm. The ovaries are not visualized. No significant free fluid. Ordering Provider: Gopi Rodriguez FINAL REPORT Dictated: 05/22/2023 9:10 am Ladarius Davis MD Signed (Electronic Signature): 05/22/2023 9:10 am Signed by: Ladarius Davis MD Transcribed by: RINKU Technologist: LEE Technical Comments Irregular History 2 Technical Comments Para 1 Transabdominal Ultrasound Performed FHR (bpm) 167 [place] Rump Length (in cm) 2.22 Normal [facility] Auto Diffon 05-21-2023 Basophils/100 WBC (Bld) 1.0 % Normal 0.0-2.0 [facility] Comment on above: Order Comment: Order Added by Discern Expert. Performed By: #### 2 555462, 67410999, 4908338, 1713808, 0225316, 7323549 #### [facility] [address] [place] [address] Basophils/Leukocytes Auto (Bld) [Pure # fraction] 0.1 E9/L Normal 0.0-0.2 [facility] Comment on above: Order Comment: Order Added by Discern Expert. Performed By: #### 2 050228, 23990015, 9582411, 0015083, 8280268, 8758704 #### [facility] [address] [place] [address] Eosinophils/100 WBC (Bld) 1.5 % Normal 0.0-8.0 [facility] Comment on above: Order Comment: Order Added by Discern Expert. Performed By: #### 2 268313, 78250949, 4215293, 9090843, 6435084, 0885400 #### [facility] [address] [place] [address] Eosinophils/Leukocytes Auto (Bld) [Pure # fraction] 0.1 E9/L Normal 0.0-0.5 [facility] Comment on above: Order Comment: Order Added by Discern Expert. Performed By: #### 2 952827, 49224635, 8517571, 0793819, 7704464, 3399057 #### [facility] [address] [place] [address] Lymphocytes/100 WBC (Bld) 36.6 % Normal 14.0-50.0 [facility] Comment on above: Order Comment: Order Added by Discern Expert. Performed By: #### 2 736836, 38976595, 2536134, 3586511, 5603894, 8337644 #### [facility] [address] [place] [address] Lymphocytes/Leukocytes Auto (Bld) [Pure # fraction] 2.5 E9/L Normal 1.0-4.0 [facility] Comment on above: Order Comment: Order Added by Discern Expert. Performed By: #### 2 686511, 64195585, 4734922, 5270666, 7590444, 4522924 #### [facility] [address] [place] [address] Monocytes/100 WBC (Bld) 8.2 % Normal 4.0-14.0 [facility] Comment on above: Order Comment: Order Added by Discern Expert. Performed By: #### 2 587762, 99898696, 8066825, 5919737, 4533765, 7665113 #### [facility] [address] [place] [address] Monocytes/Leukocytes Auto (Bld) [Pure # fraction] 0.6 E9/L Normal 0.2-1.0 [facility] Comment on above: Order Comment: Order Added by Discern Expert. Performed By: #### 2 425423, 14713906, 9874650, 1590588, 5604143, 5346540 #### [facility] [address] [place] [address] Neutrophils/100 WBC (Bld) 52.7 % Normal 36.0-75.0 [facility] Comment on above: Order Comment: Order Added by Gisselle Expert. Performed By: #### 2 895332, 03875950, 0694906, 7694024, 7085941, 0282139 #### [facility] [address] [place] [address] Neutrophils/Leukocytes Auto (Bld) [Pure # fraction] 3.6 E9/L Normal 2.0-7.5 [facility] Comment on above: Order Comment: Order Added by Gisselle Expert. Performed By: #### 2 807766, 37260356, 5312684, 8294127, 7511890, 7980978 #### [facility] [address] [place] [address] BMPon 05-21-2023 Creatinine [Mass/Vol] 0.7 mg/dL Normal 0.5-1.3 [facility] Comment on above: Performed By: #### 2 579614, 49156654, 0428654, 1871356, 3236939, 1662424 #### [facility] [address] [place] [address] Urea nitrogen [Mass/Vol] 8 mg/dL Normal 5-21 [facility] Comment on above: Performed By: #### 2 174513, 22258112, 0442646, 7517888, 9153871, 8829457 #### [facility] [address] [place] [address] Urea nitrogen/Creatinine [Mass ratio] 11 No Units Normal 10-20 [facility] Comment on above: Performed By: #### 2 721250, 42245520, 9396388, 9034359, 7068827, 3275762 #### [facility] [address] [place] [address] Anion gap [Moles/Vol] 12 mmol/L Normal 6-16 [facility] Comment on above: Performed By: #### 2 800544, 22568285, 7837340, 6335119, 1133838, 3128032 #### [facility] [address] [place] [address] Calcium [Mass/Vol] 9.2 mg/dL Normal 8.9-11.1 [facility] Comment on above: Performed By: #### 2 302876, 95797696, 3922616, 2906705, 5773999, 1660277 #### [facility] [address] [place] [address] Chloride [Moles/Vol] 104 mmol/L Normal 101-111 [facility] Comment on above: Performed By: #### 2 050672, 61089438, 4132282, 7004235, 8437306, 6055657 #### [facility] [address] [place] [address] CO2 [Moles/Vol] 24 mmol/L Normal 21-31 [facility] Comment on above: Performed By: #### 2 827047, 24227419, 7989145, 0981831, 7370608, 2635277 #### [facility] [address] [place] [address] Glucose [Mass/Vol] 87 mg/dL Normal 55-199 [facility] Comment on above: Result Comment: If t his glucose result represents a fasting glucose, interpretation should refer to the following reference range: 55-99 mg/dL Performed By: #### 2 878289, 82672637, 4313692, 9111633, 3173491, 3711503 #### [facility] [address] [place] [address] Potassium [Moles/Vol] 3.2 mmol/L Low 3.5-5.3 [facility] Comment on above: Performed By: #### 2 902861, 77311138, 6495336, 2294632, 4733277, 0371312 #### [facility] [address] [place] [address] Sodium [Moles/Vol] 137 mmol/L Normal 135-145 [facility] Comment on above: Performed By: #### 2 661496, 42957424, 4393051, 1525944, 8439245, 1681640 #### [facility] [address] [place] [address] CBC w/ Auto Diffon 3 Erythrocyte distribution width (RBC) [Ratio] 13.3 % Normal 10.9-14.2 [facility] Comment on above: Performed By: #### 2 934388, 30979913, 7473955, 3569125, 0989636, 4264903 #### [facility] [address] [place] [address] Hematocrit (Bld) [Volume fraction] 39.0 % Normal 34.0-46.0 [facility] Comment on above: Performed By: #### 2 954990, 19578056, 9727006, 1294383, 5716889, 0890239 #### [facility] [address] [place] [address] Hemoglobin (Bld) [Mass/Vol] 13.3 g/dL Normal 12.0-16.0 [facility] Comment on above: Performed By: #### 2 300551, 75774424, 2050613, 7643779, 6079777, 6457137 #### [facility] [address] [place] [address] MCH (RBC) [Entitic mass] 30.3 pg Normal 27.0-34.0 [facility] Comment on above: Performed By: #### 2 051515, 66535624, 4196619, 3812715, 3976573, 3643000 #### [facility] [address] [place] [address] MCHC (RBC) [Mass/Vol] 34.2 g/dL Normal 31.4-36.0 [facility] Comment on above: Performed By: #### 2 528206, 97873620, 5482378, 7116590, 8495415, 4922008 #### [facility] [address] [place] [address] MCV (RBC) [Entitic vol] 88.7 fL Normal 80.0-100.0 [facility] Comment on above: Performed By: #### 2 601949, 28081957, 9331410, 3498573, 3677319, 7764435 #### [facility] [address] [place] [address] Platelet mean volume (Bld) [Entitic vol] 7.8 fL Normal 6.4-10.8 [facility] Comment on above: Performed By: #### 2 502412, 75544101, 2073277, 3702502, 3411376, 3796923 #### [facility] [address] [place] [address] Platelets (Bld) [#/Vol] 225.0 E9/L Normal 150.0-500.0 [facility] Comment on above: Performed By: #### 2 428828, 29510240, 4046426, 4998631, 5697927, 2731800 #### [facility] [address] [place] [address] RBC (Bld) [#/Vol] 4.4 E12/L Normal 4.3-5.9 [facility] Comment on above: Performed By: #### 2 265786, 07729111, 3070996, 8425838, 7442001, 0150387 #### [facility] [address] [place] [address] WBC corrected for nucl RBC Auto (Bld) [#/Vol] 6.8 E9/L Normal 4.0-11.0 [facility] Comment on above: Performed By: #### 2 079168, 01046899, 1389504, 0739618, 0280511, 5680517 #### [facility] [address] [place] [address] CHEMISTRYOrdered By: SYSTEM SYSTEM on 05-21-2023 HCG.beta subunit Qn 909052 m[IU]/mL High 1 - 3 mIU/mL [facility] [...] 120 mL/min/1.73 m2 Normal >=59mL/min/ 1.73 m2 [facility] Chem S Globulin (S) [Mass/Vol] 3.1 g/dL [...] Remisol Consent for Treatmenton Consent for Treatment [id number]:12 7 Normal [facility] HEMATOLOGYOrdered By: SYSTEM SYSTEM on 05-21-2023 Basophils/100 WBC (Bld) 1.0 % Normal 0.0 - 2.0 % [facility] HemeAutoSS Basophils/Leukocytes Auto (Bld) [Pure # fraction] [...] 225.0 E9/L Normal 150.0 - 500.0 E9/L [facility] HemeAutoSS RBC (Bld) [#/Vol] 4.4 E12/L Normal 4.3 - 5.9 E12/L [facility] HemeAutoSS WBC corrected for nucl RBC Auto (Bld) [#/Vol] 6.8 E9/L Normal 4.0 - 11.0 E9/L [facility] HemeAutoSS Hep Func Panelon 05-21-2023 Bilirubin.indirect [Mass or moles/Vol] UTC Abnormal 0.1-0.9 [facility] Comment on above: Result Comment: Resu lt verified by Discern Rule. Performed result UT (Unable to Calculate) was sent as an Alpha code due the inability to calculate a valid numeric value. Performed By: #### 2 420904, 03858298, 9780839, 7200594, 5799139, 3745553 #### [facility] [address] [place] [address] Albumin [Mass/Vol] 3.8 g/dL Normal 3.3-5.0 [facility] Comment on above: Performed By: #### 2 010613, 29669247, 2788762, 2555202, 9684649, 9583374 #### [facility] [address] [place] [address] Albumin/Globulin (S) [Mass conc ratio] 1.2 Normal 1.1-2.2 [facility] Comment on above: Performed By: #### 2 389284, 18769472, 0355047, 3546358, 0387059, 2589649 #### [facility] [address] [place] [address] ALP [Catalytic activity/Vol] 42 Int._Unit/L Normal 21-98 [facility] Comment on above: Performed By: #### 2 557215, 79609215, 2911958, 2996683, 0314706, 7698180 #### [facility] [address] [place] [address] ALT No additional P-5'-P [Catalytic activity/Vol] 13 Int._Unit/L Normal 6-46 [facility] Comment on above: Performed By: #### 2 937744, 31908099, 0385861, 9016999, 4879463, 0496923 #### [facility] [address] [place] [address] AST [Catalytic activity/Vol] 14 Int._Unit/L Normal 5-43 [facility] Comment on above: Performed By: #### 2 711221, 35878386, 0976082, 4339463, 9493826, 8095353 #### [facility] [address] [place] [address] Bilirubin [Mass/Vol] 0.5 mg/dL Normal 0.0-1.1 [facility] Comment on above: Performed By: #### 2 304833, 00771553, 1791539, 1986223, 4040773, 7794042 #### [facility] [address] [place] [address] Globulin (S) [Mass/Vol] 3.1 g/dL Normal 1.4-4.0 [facility] Comment on above: Performed By: #### 2 477125, 98725477, 5913314, 6910754, 4602933, 7658603 #### [facility] [address] [place] [address] Protein [Mass/Vol] 6.9 g/dL Normal 6.0-7.8 [facility] Comment on above: Performed By: #### 2 145413, 57642915, 8999643, 8948688, 7431494, 9100538 #### [facility] [address] [place] [address] Bilirubin.direct [Mass/Vol] mg/dL Normal 0.1-0.4 [facility] Comment on above: Performed By: #### 2 813364, 59597587, 8032364, 6938825, 4425370, 0329454 #### [facility] [address] [place] [address] Lipase Levelon 05-21-2023 Lipase [Catalytic activity/Vol] 31 U/L Normal 13-58 [facility] Comment on above: Performed By: #### 2 730872, 67190075, 6319103, 5154167, 6747320, 5908346 #### [facility] [address] [place] [address] Troponin 0 Hr.on 05-21-2023 Troponin I.cardiac [Mass/Vol] 2.50 pg/mL Low 10.10-27.10 [facility] Comment on above: Result Comment: The 95% CI (Confidence Interval) PPV (Positive Predictive Value) for myocardial infarction in females is 38 pg/mL, in males 51 pg/mL. The results should be used in conjunction with clinical conditions of myocardial infarction. (Access High Sensitivity Troponin I Instructions For Use, [employer], May 2018) Performed By: #### 2 544048, 46864809, 2804167, 8076142, 9103549, 3446921 #### [facility] [address] [place] [address] URINALYSISOrdered By: Jose Miguel nelson on 05-21-2023 [...] Interpretation Code Negative [facility] UA Auto SS [place].plasma/[place] .RBC (Bld) [Mass ratio] 4-20 /HPF Normal [...] FT UA Auto SS Urobilinogen Qn (U) 0.5061117 {Rola'U}/dL Normal 0.0 - 1.0 EU/dL FT UA Auto SS WBC Auto Ql (U) Negative (05/21/23 10:17 PM) Normal Negative [facility] UA Auto SS WBC LM.HPF (Urine sed) [#/Area] 0-5 /HPF Normal 0-5/HPF [facility] UA Auto SS eGFRon 05-21-2023 GFR/1.73 sq M.predicted among non-blacks MDRD (S/P/Bld) [Vol rate/Area] 120 mL/min/1.73 m2 Normal >=59 [facility] Comment on above: Order Comment: Order added by Discern Expert. Result Comment: Shipping Clerk lucy kidney disease could be indicated at eGFR's of less than 60 mL/min/1.73m2. Kidney failure is indicated at less than 15 mL/min/1.73m2. Performed By: #### 2 008588, 73071429, 8171871, 5032188, 6218660, 7044957 #### [facility] [address] [place] [address] PAP [id number] 05-03-2023 C. trachomatis rRNA MAHAD+probe Ql (Cvx) Negative Invalid Interpretation Code Negative [facility] Comment on above: Performed By: #### 2 014360, 51520779, 3208422, 0410809, 9909744, 3849949 #### [facility] [address] [place] [address] Cytology report Cyto stain Doc (Cvx/Vag) Note Invalid Interpretation Code [facility] Comment on above: Result Comment: TEST S RESULT FLAG UNITS REF RANGE LAB Clinician Provided Cytology Information Source.............Endocervix No. of containers..01 ThinPrep Vial DIAGNOSIS: 01 NEGATIVE FOR INTRAEPITHELIAL LESION OR MALIGNANCY. Specimen adequacy: 01 Satisfactory for evaluation. Endocervical and/or squamous metaplastic cells (endocervical component) are present. Performed by: 01 Analilia Shea, Objective C Developer ([facility]) . 01 Note: Note 01 The Pap smear is a screening test designed to aid in the detection of premalignant and malignant conditions of the uterine cervix. It is not a diagnostic procedure and should not be used as the sole means of detecting cervical cancer. Both false-positive and false-negative reports do occur. Test Methodology: Note 01 This liquid based ThinPrep(R) pap test was screened with the use of an image guided system. . 01 The HPV DNA reflex criteria were not met with this specimen result therefore, no HPV testing was performed. FLAG LEGEND: L-Low Normal,H-High Normal,LL-Alert Low,HH-Alert High <-Panic Low,>-Panic High,A-Abnormal,AA-Critical Abnormal Performed at: [address] [address] Joya Walton MD, Performed By: #### 2 038116, 70505739, 9922346, 4633740, 7320344, 6940650 #### [facility] [address] [place] [address] N. gonorrhoeae rRNA MAHAD+probe Ql (Cvx) Negative Invalid Interpretation Code Negative [facility] Comment on above: Result Comment: Perf ormed at: [facility] [id number] MD Anton Hinson Performed at: =[facility] [id number] MD Anton Hinson Performed By: #### 2 211444, 67854068, 0394723, 9595248, 2898659, 4949329 #### [facility] [address] [place] [address] C Urineon 05-02-2023 Bacteria identified Cx Nom (U) Microbiology PROCEDURE: Urine Culture [R1] SOURCE: U CleanCatch BODY SITE: COLLECTED DATE/TIME: 04/30/2023 08:30 EDT RECEIVED DATE/TIME: 04/30/2023 17:43 EDT START DATE/TIME: 04/30/2023 17:43 EDT FREE TEXT SOURCE: Fabiana MARION, Luis Carlos Jung MD, Luis Carlos Byrd FINAL REPORTS Final Report [] Verified Date/Time: 05/02/2023 10:42 EDT 500 cfu/ml Mixed skin contaminants Performing Locations R1: This test was performed at: [facility], [address] [place] [address], [address] , , Normal [facility] Comment on above: Performed By: #### 2 296365, 43055715, 3580578, 1760439, 5777438, 3723623 #### [facility] Laboratory [address] [place] [address] HIV Screen 4th Generation wR fxon 05-01-2023 HIV 1+2 Ab+HIV1 p24 Ag IA Ql Non-Reactive Invalid Interpretation Code Non Reactive [facility] Comment on above: Result Comment: HIV Negative HIV-1/HIV-2 antibodies and HIV-1 p24 antigen were NOT detected. There is no laboratory evidence of HIV infection. Performed at: [address] [id number] PhD Caroline [place] Performed By: #### 2 014554, 60060393, 5573496, 3569909, 7543963, 3299172 #### [facility] [address] [place] [address] Hep Bs Agon 05-01-2023 HBV surface Ag IA Ql Negative Invalid Interpretation Code Negative [facility] Comment on above: Result Comment: Perf ormed at: [address] [id number] PhD [facility] [place] Performed By: #### 2 022542, 21515974, 9655477, 3178552, 4932003, 7889865 #### [facility] [address] [place] [address] RPR with Conf Rfxon 05-01-20 23 Reagin Ab RPR Ql (S) Non-Reactive Invalid Interpretation Code Non Reactive [facility] Comment on above: Result Comment: Perf ormed at: [address] [id number] PhD [facility] [place] Performed By: #### 2 268695, 74975206, 0492783, 4150310, 2153296, 6876500 #### [facility] Laboratory [address] [place] [address] Rubella IgGon 05-01-2023 Rubella virus IgG Qn (S) [IU]/mL Low Immune >0.99 [facility] Comment on above: Result Comment: Non- immune <0.90 Equivocal 0.90 - 0.99 Immune >0.99 Performed at: [address] [id number] PhD [facility] [place] Performed By: #### 2 581951, 12852755, 6354873, 3067829, 7490349, 4262346 #### [facility] Laboratory [address] [place] [address] ABO/Rhon 04-30-2023 ABO/Rh Positive Invalid Interpretation Code [facility] Comment on above: Performed By: #### 2 304971, [id number] ####[facility] [id number] [place] [address] ABSCon 04-30-2023 ABSC Gel Interp Negative Normal [facility] Comment on above: Performed By: #### 2 130550, [id number] ####[facility] [id number] [place] [address] BLOOD BANKOrdered By: Diamond Junior on 04-30-2023 ABO/Rh Interp Positive Invalid Interpretation Code [facility] BB Subsection ABSC Gel Interp Negative (04/30/23 9:30 AM) Normal [facility] BB Subsection BhCG Quanton 04-30-2023 [place] [address] m[IU]/mL High 1-3 [facility] Comment on above: Result Comment: GEST ATIONAL AGE HCG RANGE (mIU/mL) NON- <1-3 0.2-1 WEEKS 5-50 1-2 WEEKS 50-500 2-3 WEEKS 100-5,000 3-4 WEEKS 500-10,000 4-5 WEEKS 1,000-50,000 5-6 WEEKS 10,000-100,000 6-8 WEEKS 15,000-200,000 8-12 WEEKS 10,000-100,000 Performed By: #### 2 938188, 47575200, 4843137, 5634897, 3316182, 2210722 #### [facility] [address] [place] [address] CBC w/Indiceson 04-30-2023 Erythrocyte distribution width (RBC) [Ratio] 13.7 % Normal 10.9-14.2 [facility] Comment on above: Performed By: #### 2 552095, 33201289, 1450028, 1974850, 1395170, 2778965 #### [facility] Laboratory [address] [place] [address] Hematocrit (Bld) [Volume fraction] 40.7 % Normal 34.0-46.0 [facility] Comment on above: Performed By: #### 2 548415, 75644468, 8774549, 2983914, 3903975, 9217230 #### [facility] Laboratory [address] [place], [place] [address] Hemoglobin (Bld) [Mass/Vol] 13.8 g/dL Normal 12.0-16.0 [facility] Comment on above: Performed By: #### 2 832569, 61232242, 9971813, 8870686, 2873010, 8997679 #### [facility] Laboratory [address] [place] [address] MCH (RBC) [Entitic mass] 30.5 pg Normal 27.0-34.0 [facility] Comment on above: Performed By: #### 2 088616, 23076266, 3910809, 7592955, 1753431, 5237966 #### [facility] [address] [place] [address] MCHC (RBC) [Mass/Vol] 33.9 g/dL Normal 31.4-36.0 [facility] Comment on above: Performed By: #### 2 023265, 75463408, 0449423, 7637352, 3371423, 9663330 #### [facility] [address] [place] [address] MCV (RBC) [Entitic vol] 89.9 fL Normal 80.0-100.0 [facility] Comment on above: Performed By: #### 2 387233, 10232181, 2864200, 2495998, 5502485, 4406821 #### [facility] [address] [place] [address] Platelet mean volume (Bld) [Entitic vol] 8.2 fL Normal 6.4-10.8 [facility] Comment on above: Performed By: #### 2 569251, 17442811, 0253465, 0242472, 4193786, 8764673 #### [facility] [address] [place] [address] Platelets (Bld) [#/Vol] 279.0 E9/L Normal 150.0-500.0 [facility] Comment on above: Performed By: #### 2 706300, 50038504, 2512579, 8234789, 6702229, 6173015 #### [facility] [address] [place] [address] RBC (Bld) [#/Vol] 4.5 E12/L Normal 4.3-5.9 [facility] Comment on above: Performed By: #### 2 745543, 09747016, 7758386, 1362661, 5814885, 0243945 #### [facility] [address] [place] [address] WBC corrected for nucl RBC Auto (Bld) [#/Vol] 5.8 E9/L Normal 4.0-11.0 [facility] Comment on above: Performed By: #### 2 068272, 49425279, 1084304, 7962180, 2912188, 9052451 #### [facility] [address] [place] [address] CHEMISTRYOrdered By: SYSTEM SYSTEM on 04-30-2023 [place] [address] m[IU]/mL High 1 - 3 mIU/mL [facility] Remisol Consent for Treatmenton 04-14 Consent for Treatment [id number]:12 7 Normal [facility] HEMATOLOGYOrdered By: Temi Romero on [...] 4.0 - 11.0 E9/L FT HemeAutoSS PAP [id number] 04-30-2023 Collection Technique BRUSH-SPATULA Normal [facility] Comment on above: Performed By: #### 2 895161, 56849660, 3536015, 2126143, 3947635, 0483416 #### [facility] Laboratory [address] [id number] Gynecological Body Site ENDOCERVIX Normal [facility] Comment on above: Performed By: #### 2 904783, 73290453, 7308914, 6661332, 7153558, 9360543 #### [facility] Laboratory [address] [place] [address] Physician Orderon 04-30-2023 Physician Order [id number]#1.00CD:1 27 Normal [facility] Physician Order [id number]#1.00CD:1 27 Normal [facility] BhCG Quanton 04-26-2023 [place] [address] m[IU]/mL High 1-3 [facility] Comment on above: Result Comment: GEST ATIONAL AGE HCG RANGE (mIU/mL) NON- <1-3 0.2-1 WEEKS 5-50 1-2 WEEKS 50-500 2-3 WEEKS 100-5,000 3-4 WEEKS 500-10,000 4-5 WEEKS 1,000-50,000 5-6 WEEKS 10,000-100,000 6-8 WEEKS 15,000-200,000 8-12 WEEKS 10,000-100,000 Performed By: #### 2 132782, 75666551, 6154791, 5648890, 4482527, 1250444 #### [facility] [address] [place] [address] CHEMISTRYOrdered By: SYSTEM SYSTEM on 04-26-2023 [place] [address] m[IU]/mL High 1 - 3 mIU/mL [facility] Remisol Consent for Treatmenton 04-14 Consent for Treatment [id number]:12 7 Normal [facility] Discharge Instructionson Discharge Instructions [id number]#1.00CD:1 27 Normal [facility] ED Clinical Summaryon 2022 ED Clinical Summary (Inserted Image. Maryann ble to display) [address] [address] ED Clinical Summary Person Information Name: SUSAN BRO [facility]hel[facility] Age: 27 Years : 1995 Sex: Female Language: Slovenian PCP: THANG MILLAN CNP Marital Status: Single Phone: [phone] Visit Id: Visit Reason: Abdominal pain - ; ABD CRAMPING- Speciality: Acuity: 3 Enc Type: Emergency Med Service: Emergency Arrival: 04/26/2023 08:50:01 Discharge: 04/26/2023 11:11:04 LOS: 000 02:21 Checkin: 04/26/2023 08:50:01 Checkout: 04/26/2023 11:11:04 Dispo Type: Home (Routine DC) EVENTS: Event Name Event Status Request Date/Time Start Date/Time Complete Date/Time Arrive Complete 04/26/2023 08:50:01 04/26/2023 08:50:01 04/26/2023 08:50:01 Document Home Meds Request 04/26/2023 08:50:01 Triage Complete 04/26/2023 08:50:01 04/26/2023 09:02:53 04/26/2023 09:02:53 Dr Exam Complete 04/26/2023 09:07:25 04/26/2023 09:07:25 04/26/2023 09:07:25 Registration Complete 04/26/2023 09:07:25 04/26/2023 09:08:07 04/26/2023 09:10:57 Bed Assign Complete 04/26/2023 09:08:07 04/26/2023 09:08:07 04/26/2023 09:08:07 RN Exam Complete 04/26/2023 09:08:07 04/26/2023 09:11:55 04/26/2023 09:11:55 Dr Exam Complete 04/26/2023 09:08:43 04/26/2023 09:08:43 04/26/2023 09:08:43 Reg Complete Request 04/26/2023 09:10:57 Reg Bed Request Complete 04/26/2023 09:10:57 04/26/2023 09:10:57 04/26/2023 09:10:57 Pending Labs Complete 04/26/2023 09:12:38 04/26/2023 09:38:39 Lab Complete 04/26/2023 09:12:38 04/26/2023 09:38:39 Urine Collect Complete 04/26/2023 09:12:38 04/26/2023 09:38:39 US Complete 04/26/2023 09:24:16 04/26/2023 10:13:37 04/26/2023 10:50:04 Pending Labs Complete 04/26/2023 09:44:47 04/26/2023 10:46:09 Lab Complete 04/26/2023 09:44:47 04/26/2023 10:46:09 Pending Labs Complete 04/26/2023 09:56:36 04/26/2023 09:56:36 04/26/2023 09:56:37 US Complete 04/26/2023 10:43:00 04/26/2023 10:50:30 Discharge Complete 04/26/2023 10:58:05 04/26/2023 11:11:44 04/26/2023 11:11:44 Transfer Complete 04/26/2023 11:11:44 04/26/2023 11:11:44 04/26/2023 11:11:44 ADDRESS: [facility] [id number] [facility] DOC NOTES: MEDICAL INFORMATION: Prescriptions Given: Medications to Continue with No Changes Other Medications ibuprofen (ibuprofen 600 mg Tab) 1 Tablets By Mouth every 6 hours. Refills: 0. levothyroxine (levothyroxine 50 mcg (0.05 mg) Tab) 1 Tablets By Mouth every day. multivitamin, ( Multivitamins) 1 Tablets By Mouth every day. PATIENT EDUCATION INFORMATION: Instructions: Abdominal Pain During Follow up: With: Address: When: Luis Carlos Jung [facility] [address], [place] [address] Business (7) In 3 days 04/29/2023 DIAGNOSIS: Abdominal pain; Normal [facility] ED Note-Physicianon 04-26-20 ED Note-Physician Basic Information Time Seen: Jos Ugalde PA-C 04/26/2023 09:07 Chief Complaint patient c/o abdominal cramping that started last night. roughly [address] Jung. denies vaginal bleeding History of Present Illness 27-year-old female comes to the ED for evaluation of abdominal pain. She is approximately 9 weeks . Since last night she has had lower abdominal pain/cramping. No other associated symptoms. No fever, chills, nausea, vomiting. Normal appetite. No diarrhea or constipation. No urinary complaints. No vaginal bleeding. She has had no ultrasounds for this . Review of Systems A 10 point review of systems is negative except as noted above. Medical and Surgical History: Reviewed and noted Social history: Lives at home Tobacco: Denies Physical Exam Vitals & Measurements T: 36.8 ?C(Oral) HR: 80(Peripheral) RR: 18 BP: 110/72 SpO2: 100% HT: 163 cm WT: 76.7 kg BMI: 28.87 Nurses notes and vital signs reviewed and patient is not hypoxic. General: The patient appears well and in no significant distress Patient is resting comfortably on the exam bed. Skin: Warm, dry, no pallor noted. Head: Atraumatic. Neck: No JVD. Eye: Normal conjunctiva. Ears, Nose, Mouth, and Throat: Moist mucous membranes Cardiovascular: Strong distal pulses. Chest wall: Respiratory: Respirations are nonlabored. Lungs clear to auscultation. Back: Normal range of motion, no CVA tenderness. Musculoskeletal: Normal ROM with no gross deformity. Gastrointestinal: Abdomen is soft throughout. There is mild tenderness over the lower quadrants. No focal finding. No guarding, rebound or rigidity. No distention Urological: Neurological: Awake and alert. No focal deficits. Follows commands. GCS 15. Psychiatric: Cooperative. Medical Decision Making Patient presents with abdominal pain and is currently 9 weeks . She has no fever, chills, nausea, vomiting. No urinary complaints. No bleeding. Laboratory studies reviewed. Quantitative hCG around 20,000. Urinalysis shows no infection. Ultrasound was obtained discussed with insulator technician. There is intrauterine measuring around 5 weeks. No gross abnormality. Results are discussed the patient, she is resting comfortably and is discharged home to follow-up with [facility] REFRIGERATION TECHNICIAN. Patient was encouraged to return to the ED if symptoms worsen or change. X The patient is and presents with abdominal pain or vaginal bleeding. A trans-abdominal or trans-vaginal ultrasound was performed and the location is documented. [SATISFIES MIPS PERFORMANCE] Assessment/Plan Abdominal pain (R10.9: Unspecified abdominal pain) (Z34.90: Encounter for supervision of normal , unspecified, unspecified trimester) Orders: Beta hCG Quantitative Extra Lav Tube Extra SST Tube US 1st Trimester US Transvaginal Disposition Plan Patient Discharge Condition Disposition: Discharged home Condition: Improved and stable Counseled: Patient and/or family were counseled to workup, results, treatment plan and follow-up recommendations Discharge Prescription List Prescriptions No active prescription medications Follow-up With When Contact Information Luis Carlos Jung In 3 days 04/29/2023 EDT [address] [place] [address]- [facility] (1) Additional Instructions: Patient Education Abdominal Pain During Attestation Patient seen and evaluated by the physician assistant product manager. Attending physician was present in the emergency department and supervised care. This visit was performed by both the physician and an APC. I performed all aspects of the MDM as documented. This report was transcribed using voice recognition software. Every effort was made to ensure accuracy, however, inadvertently computerized flue lining dipper mistakes may be present. Appropriate healthcare PPE was used in evaluating this patient. The patient was placed in a mask. The healthcare provider was wearing mask, gloves, and utilizing proper hand hygiene. All equipment was properly cleansed. Problem List/Past Medical History Ongoing [place] Pre-employment examination Smoker 16-APR-2014 12:37:00<$> Historical Bacterial meningitis Extreme obesity 16-APR-2014 12:48:08<$> Headache None Procedure/Surgical History Cholecystotomy. 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 Normal [facility] Comment on above: Result Comment: Elec tronically Signed By: Jos Ugalde PA-C\.br\Date and Time Signed: 04/26/23 10:59 EDT\.br\Electronically Co-Signed By: Laura Noel M.D.\.br\Date and Time Co-Signed: 04/26/23 11:01 EDT ED Patient Education Noteon 04-26-2023 ED Patient Education Note Obstetrics and Gynecology Abdominal Pain During Abdominal pain is common during and has many possible causes. Some causes are more serious than others, and sometimes the cause is not known. Abdominal pain can be a sign that labor is starting. It can also be caused by normal growth of your baby causing stretching of muscles and ligaments during . Always tell your health care provider if you have any abdominal pain. Follow these instructions at home: ? Do not have sex or put anything in your vagina until your pain goes away completely. ? Get plenty of rest until your pain improves. ? Drink enough fluid to keep your urine pale yellow. ? Take ybyx-jvo-kfmexte and prescription medicines only as told by your health care provider. ? Keep all follow-up visits. This is important. Contact a health care provider if: ? Your pain continues or gets worse after resting. ? You have lower abdominal pain that: ? Comes and goes at regular intervals. ? Spreads to your back. ? Is similar to menstrual cramps. ? You have pain or burning when you urinate. Get help right away if: ? You have a fever, chills, or shortness of breath. ? You have vaginal bleeding. ? You are leaking fluid or passing tissue from your vagina. ? You have vomiting or diarrhea that lasts for more than 24 hours. ? Your baby is moving less than usual. ? You feel very weak or faint. ? You develop severe pain in your upper abdomen. Summary ? Abdominal pain is common during and has many possible causes. ? If you experience abdominal pain during , tell your health care provider right away. ? Follow your health care provider's home care instructions and keep all follow-up visits as told. This information is not intended to replace advice given to you by your health care provider. Make sure you discuss any questions you have with your health care provider. Document Revised: 06/14/2021 Document Reviewed: 06/14/2021 [employer]ideof[employer]pper Patient Education ? 2022 [employer]!. Normal [facility] ED Patient Summaryon 023 ED Patient Summary (Inserted Image. Maryann ble to display) [place] [id number] Patient Discharge Instructions Person Information Name: SUSAN BRO Age: 27 Years Arrival Date: 04/26/2023 08:50:01 Discharge Diagnosis: Abdominal pain; Primary Care Physician: THANG MILLAN CNP Provider Information Primary Provider: Laura Noel M.D. Advanced Popcorn Vendor:Jos Ugalde PA-C The exam and treatment you received in the Emergency Department were for an urgent problem and are not intended as complete care. It is important that you follow up with a doctor, nurse practitioner, or physician?s assistant product manager for ongoing care. If your symptoms become worse or you do not improve as expected and you are unable to reach your usual health care provider, you should return to the Emergency Department. We are available 24 hours a day. SUSAN BRO has been given the following list of patient education materials, prescriptions and follow-up instructions: Follow-up Instructions: With: Address: When: Luis Carlos Jung [address] [place] [address], [place] [address], [place] [address] Business (1) In 3 days 04/29/2023 In the event that this physician does not participate in your insurance network, please consult with your insurance company to find a nearby participating provider. Patient Education Materials: Abdominal Pain During A MESSAGE TO ALL PATIENTS REGARDING OPIOIDS PRESCRIPTION OPIOIDS: WHAT YOU NEED TO KNOW Prescription opioids can be used to help relieve igunxfbf-mp-opbcfy pain and are often prescribed following a surgery or injury, or for certain health conditions. These medications can be an important part of the treatment but also come with serious risks. It is important to work with your healthcare provider to make sure you are getting the safest, most effective care. WHAT ARE THE RISKS AND SIDE EFFECTS OF OPIOID USE? Prescription opioids carry serious risks of addiction and overdose, especially with prolonged use. An opioid overdose, often marked by slowed breathing, can cause sudden . The use of prescription opioids can have a number of side effects as well, even when taken as directed: ? Tolerance?meaning you might need to take more of the medication for the same pain relief ? Physical dependence?meaning you have symptoms of withdrawal when a medication is stopped ? Increased sensitivity to pain ? Constipation ? Nausea, vomiting, and dry mouth ? Sleepiness and dizziness ? Confusion ? Depression ? Low levels of testosterone that can result in lower sex drive, energy, and strength ? Itching and sweating RISKS ARE GREATER WITH: ? History of drug misuse, substance use disorder, or overdose ? Mental health conditions (such as depression or anxiety) ? Sleep apnea ? Older age (65 years and older) ? Avoid alcohol while taking prescription opioids. Also, unless specifically advised by your health care provider, medications to avoid include: ? Benzodiazepines (such as Xanax or Valium) ? Muscle relaxants (such as Soma or Flexeril) ? Hypnotics (such as Ambien or Lunesta) ? Other prescription opioids KNOW YOUR OPTIONS Talk to your health care provider about ways to manage your pain that don?t involve prescription opioids. Some of these options may actually work better and have fewer risks and side effects. Options may include: ? Pain relievers such as acetaminophen, ibuprofen, and naproxen ? Some medication that are also used for depression or seizures ? Physical therapy and exercise ? Cognitive behavioral therapy, a psychological, goal-directed approach, in which patients learn how to modify physical, behavioral, and emotional triggers of pain and stress. IF YOU ARE PRESCRIBED OPIOIDS FOR PAIN: ? Never take opioids in greater amounts or more often than prescribed. ? Follow up with your primary health care provider. o Work together to create a plan on how to manage your pain. o Talk about ways to help manage your pain that don?t involve prescription opioids. o Talk about any and all concerns and side effects. ? Help prevent misuse and abuse o Never sell or share prescription opioids. o Never use another person?s prescription opioids. ? Store prescription opioids in a secure place and out of reach of others (this may include visitors, children, friends, and family). ? Safely dispose of unused prescription opioids: Find your community drug take-back program or your pharmacy mail-back program, or flush them down the toilet, following guidance from the Food and Drug Administration (www.fda.gov/Drugs/Resour cesForYou). ? Visit www.cdc.gov/drugoverdose to learn about the risks of opioids abuse and overdose. ? If you believe you may be struggling with addiction, tell your health personal caregiver and ask for guidance or call [facility] National Helpline (more content not included)... Normal [facility] UA With Cult Reflexon 2022 Bilirubin Ql (U) Negative Normal Negative [facility] Comment on above: Performed By: #### 2 [id number], [id number], 2748043, 1863512, 3584150, 1114293 #### [facility] Laboratory [address] [place] [address] Clarity (U) CLEAR Normal Clear [facility] Comment on above: Performed By: #### 2 068175, [id number], 9782986, 9925477, 2533026, 2676305 #### [facility] [address] [place] [address] Color (U) YELLOW Normal Yellow [facility] Comment on above: Performed By: #### 2 905042, [id number], 0577424, 2754165, 4416080, 0038348 #### [facility] [address] [place] [address] Crystals LM Ql (Urine sed) Present Normal [facility] Comment on above: Performed By: #### 2 822149, [id number], 7819215, 0349869, 7342291, 4419409 #### [facility] [address] [place] [address] Epithelial cells.squamous LM.HPF (Urine sed) [#/Area] 0-2 Normal 0-2 [facility] Comment on above: Performed By: #### 2 357605, [id number], 2713140, 1484818, 0845449, 6603786 #### [facility] [address] [place] [address] Glucose Test strip (U) [Mass/Vol] Negative Normal Negative [facility] Comment on above: Performed By: #### 2 034216, 87525508, 9678448, 1395818, 9606567, 1767098 #### [facility] [address] [place] [address] Hemoglobin Ql (U) Negative Normal Negative [facility] Comment on above: Performed By: #### 2 844181, 72877839, 8224887, 9514994, 0097327, 2232725 #### [facility] [address] [place] [address] Ketones (U) [Mass/Vol] Negative Normal Negative [facility] Comment on above: Performed By: #### 2 482330, 76614025, 4105702, 9065397, 2915937, 3980158 #### [facility] [address] [place] [address] [place].plasma/[place] .RBC (Bld) [Mass ratio] 0-3 Normal 0-3 [facility] Comment on above: Performed By: #### 2 047903, [id number], 4599934, 7914309, 6375900, 7833191 #### [facility] [address] [place] [address] Mucus Ql (Urine sed) 2+ Normal [facility] Comment on above: Performed By: #### 2 473633, 85851824, 4967093, 7373163, 0674938, 6920720 #### [facility] [address] [place] [address] Nitrite Ql (U) Negative Normal Negative [facility] Comment on above: Performed By: #### 2 653634, 89649567, 8889098, 9526995, 4717741, 2674918 #### [facility] [address] [place] [address] pH (U) 8.5 [pH] Invalid Interpretation Code 5.0-9.0 [facility] Comment on above: Performed By: #### 2 920504, 93320989, 9263640, 2230958, 6162803, 0542751 #### [facility] [address] [place] [address] Protein (U) [Mass/Vol] Negative Normal Negative Fi [facility] Comment on above: Performed By: #### 2 987141, 97248700, 6913559, 5761227, 2016342, 5681027 #### [facility] [address] [place] [address] Specific gravity (U) [Rel density] 1.015 Invalid Interpretation Code 1.005-1.030 [facility] Comment on above: Performed By: #### 2 547016, 15263888, 9118275, 9255581, 6963541, 5714086 #### [facility] [address] [place] [address] Type of Urine collection method Clean Catch Normal [facility] Comment on above: Performed By: #### 2 650182, 36351560, 0576659, 7053937, 5609539, 8575948 #### [facility] [address] [place] [address] Urobilinogen Qn (U) 1.0 {Rola'U}/dL Normal 0.0-1.0 [facility] Comment on above: Performed By: #### 2 933006, 58859170, 0676589, 7940059, 0692179, 5277691 #### [facility] [address] [place] [address] WBC Auto Ql (U) Negative Normal Negative [facility] Comment on above: Performed By: #### 2 205053, 83137983, 1102983, 3754989, 7016461, 0413824 #### [facility] [address] [place] [address] WBC LM.HPF (Urine sed) [#/Area] 0-5 Normal 0-5 [facility] Comment on above: Performed By: #### 2 597253, 52796870, 4172158, 5781756, 8443863, 7139414 #### [facility] [address] [place] [address] URINALYSISOrdered By: An Lassiter on 04-26-2023 Bilirubin [...] AM) Normal Negative [facility] UA Auto SS [place].plasma/[place] .RBC (Bld) [Mass ratio] 0-3 /HPF Normal [...] Desc Clean Catch (04/26/23 9:15 AM) Normal [facility] UA Auto SS Urobilinogen Qn (U) 1.0095314 {Rola'U}/dL Normal 0.0 - 1.0 EU/dL FT UA Auto SS WBC Auto Ql (U) Negative (04/26/23 9:15 AM) Normal Negative [facility] UA Auto SS WBC LM.HPF (Urine sed) [#/Area] 0-5 /HPF Normal 0-5/HPF [facility] UA Auto SS US 1st Trimesteron 04-26-2023 US 1st Trimester Exam Date/Time: 04/26/2023 10:50 EDT Reason for Exam: pelvic pain;Other (please specify) Report IMPRESSION: SINGLE INTRAUTERINE GESTATIONAL SAC WITH YOLK SAC, WITHOUT POLE AT THIS TIME. Composite Ultrasound Age: 5 weeks, 2 days . Recommend continued trending of beta hCG and repeat ultrasound as clinically indicated. CLINICAL HISTORY: pelvic pain. Spotting. LMP: 02/21/2023 DARON from LMP: 11/28/2023 Gestational Age by LMP: 9 weeks, 1 days DARON from average ultrasound age: 0312/25/2023 Composite Ultrasound Age: 5 weeks, 2 days COMPARISON: None for this gestation. COMMENT: Transabdominal images were obtained. The uterus measurements and an estimated volume are: Uterus Length: 9.6 cm Uterus Width: 6.1 cm Uterus Height: 5.4 cm Uterus Volume: 165.1 cm3 The uterus is otherwise unremarkable. A single gestational sac is identified within the uterine fundus with a diameter of: Mean Sac Diameter: 0.7 cm A yolk sac identified, without pole. corresponding gestational age +/- 1 week are: Composite Ultrasound Age: 5 weeks, 2 days DARON from average ultrasound age: 0312/25/2023 There is no evidence of subchorionic hemorrhage. The right ovary measurements and estimated volume are: Right Ovary Length: 1.6 cm,Right Ovary Length: 2.1 cm Right Ovary Width: 2.0 cm,Right Ovary Width: 1.8 cm Right Ovary Height: 1.0 cm,Right Ovary Height: 1.3 cm Right Ovary Volume: 1.6 cm3,Right Ovary Volume: 2.5 cm3 The left ovary measurements and estimated volume are: Left Ovary Length: 4.7 cm,Left Ovary Length: 2.8 cm Left Ovary Width: 2.9 cm,Left Ovary Width: 2.0 cm Left Ovary Height: 2.4 cm,Left Ovary Height: 2.2 cm Left Ovary Volume: 16.9 cm3,Left Ovary Volume: 6.6 cm3 2.4 cm cyst on the left, possible corpus luteum. Right ovary unremarkable. There is no free fluid in the cul-de-sac. Report Ordering Provider: Jos Ugalde FINAL REPORT Dictated: 04/26/2023 11:19 am Ladarius Davis MD Signed (Electronic Signature): 04/26/2023 11:19 am Signed by: Ladarius Davis MD Transcribed by: RINKU Technologist: CASANDRA Technical Comments LMP : 02/21/23 Irregular History 2 Para 1 Normal [facility] US Transvaginalon 04-26-2023 US Transvaginal Exam Date/Time: 04/26/2023 10:50 EDT Reason for Exam: Pain Report Refer to concurrent first trimester pelvic ultrasound. Ordering Provider: Jos Ugalde FINAL REPORT Dictated: 04/26/2023 11:19 am Ladarius Davis MD Signed (Electronic Signature): 04/26/2023 11:19 am Signed by: Ladarius Davis MD Transcribed by: RINKU Technologist: CASANDRA Tejada [facility] CHEMISTRYOrdered By: SYSTEM SYSTEM on 01-31-2023 Anion [...] rate/Area] mL/min/1.73 m2 Normal >=59mL/min/ 1.73 m2 [facility] Chem S GFR/1.73 sq M.predicted among non-blacks MDRD (S/P/Bld) [Vol rate/Area] mL/min/1.73 m2 Normal >=59mL/min/ 1.73 m2 [facility] Chem S Glucose [Mass/Vol] 84 mg/dL Normal [...] 2.5 second(s) [facility] Auto Coag HEMATOLOGYOrdered By: SYSTEM SYSTEM on 01-31-2023 Basophils/100 [...] Normal 4.0 - 11.0 E9/L [facility] HemeAutoSS SEROLOGYOrdered By: Nova Mccarty on 01-31-2023 Beta hCG Ql Negative (01/31/23 10:14 AM) Normal [facility] Man Sero URINALYSISOrdered By: Jeanette Castle on 09-19-2022 Bilirubin [...] AM) Normal Negative [facility] UA Auto SS [place].plasma/[place] .RBC (Bld) [Mass ratio] 0-3 /HPF Normal [...] [facility] UA Auto SS Urobilinogen Qn (U) 0.5715347 {Rola'U}/dL Normal 0.0 - 1.0 EU/dL [facility] UA Auto SS WBC Auto Ql (U) Negative (09/19/22 1:44 AM) Normal Negative [facility] UA Auto SS WBC LM.HPF (Urine sed) [#/Area] 0-5 /HPF Normal 0-5/HPF [facility] UA Auto SS URINALYSISOrdered By: An Lassiter on 09-14-2022 Bacteria [...] AM) Normal Negative [facility] UA Auto SS [place].plasma/[place] .RBC (Bld) [Mass ratio] 0-3 /HPF Normal [...] [facility] UA Auto SS Urobilinogen Qn (U) 0.0668231 {Rola'U}/dL Normal 0.0 - 1.0 EU/dL [facility] UA Auto SS WBC Auto Ql (U) Trace *ABN* (09/14/22 9:25 AM) Invalid Interpretation Code Negative [facility] UA Auto SS WBC LM.HPF (Urine sed) [#/Area] 0-5 /HPF Normal 0-5/HPF [facility] UA Auto SS URINALYSISOrdered By: Jose Miguel nelson on 09-12-2022 [...] PM) Normal Negative [facility] UA Auto SS [place].plasma/[place] .RBC (Bld) [Mass ratio] 0-3 /HPF Normal [...] Desc Clean Catch (09/12/22 8:15 PM) Normal [facility] UA Auto SS Urobilinogen Qn (U) 0.9749220 {Rola'U}/dL Normal 0.0 - 1.0 EU/dL [facility] UA Auto SS WBC Auto Ql (U) Negative (09/12/22 8:15 PM) Normal Negative [facility] UA Auto SS WBC LM.HPF (Urine sed) [#/Area] 0-5 /HPF Normal 0-5/HPF [facility] UA Auto SS CHEMISTRYOrdered By: SYSTEM SYSTEM on 09-05-2022 Anion gap [Moles/Vol] 10 mmol/L Normal 6 - 16 mEq/L [facility] Remisol Calcium [Mass/Vol] 8.8 mg/dL Low 8.9 - 11. 1 mg/dL [facility] Remisol Chloride [Moles/Vol] 102 mmol/L [...] rate/Area] mL/min/1.73 m2 Normal >=59mL/min/ 1.73 m2 [facility] Chem S Glucose [Mass/Vol] 87 mg/dL Normal 55 - 199 mg/dL [facility] Remisol Potassium [Moles/Vol] 3.3 mmol/L Low 3.5 - 5.3 mmol/L [facility] Remisol Sodium [Moles/Vol] 131 mmol/L Low 135 - 145 mmol/L [facility] Remisol Troponin I.cardiac [Mass/Vol] 4.70 pg/mL Low 10.10 - 27.10 pg/mL [facility] Remisol Urea nitrogen [Mass/Vol] 7 mg/dL Normal 5 - 21 mg/dL [facility] Remisol Urea nitrogen/Creatinine [Mass ratio] 10 mg/mg Normal 10 - 20 [facility] Remisol CHEMISTRYOrdered By: Temi hayden on 09-05-2022 Natriuretic peptide B (Bld) [Mass/Vol] 8 pg/mL Normal 5 - 80 pg/mL FT HemeManSS COAGULATIONOrdered By: Yamile Li on 09-05-2022 aPTT Coag (PPP) [Time] 27.1 s Normal 25.1 - 36.5 second(s) [facility] Auto Coag INR Coag (PPP) [Relative time] 0.9 {INR} Invalid Interpretation Code [facility] Auto Coag PT Coag (PPP) [Time] 10.3 s Normal 9.4 - 1 2.5 second(s) [facility] Auto Coag HEMATOLOGYOrdered By: SYSTEM SYSTEM on 09-05-2022 Basophils/100 [...] POS Ctl Pass (09/05/22 8:22 PM) Normal [facility] Man Sero SARS-CoV+SARS-CoV-2 (COVID-19) Ag IA.rapid Ql (Resp) Detected 2 *ABN* (09/05/22 8:22 PM) Invalid Interpretation Code Not Detected [facility] Man Sero Comment on above: Result Comment: Resu lts Called To Berna Cook RN/ER By AGNIESZKA And Read Back For Confirmation On 09/05/2022 21:14:20 EST Results Verified By Repeat Analysis BLOOD BANKOrdered By: Naldo Li on 08-30-2022 ABO/Rh Interp Positive Invalid Interpretation Code FT BB Subsection ABSC Gel Interp Negative (08/30/22 11:51 PM) Normal [facility] BB Subsection FMHV 0 mL Invalid Interpretation Code [facility] Man Sero CHEMISTRYOrdered By: SYSTEM SYSTEM on [...] 2.5 second(s) [facility] Auto Coag HEMATOLOGYOrdered By: Naldo Li on 08-30-2022 Erythrocyte [...] PM) Normal Negative [facility] UA Auto SS [place].plasma/[place] .RBC (Bld) [Mass ratio] 0-3 /HPF Normal [...] [facility] UA Auto SS Urobilinogen Qn (U) 0.3639793 {Rola'U}/dL Normal 0.0 - 1.0 EU/dL [facility] UA Auto SS WBC Auto Ql (U) Negative (08/30/22 9:45 PM) Normal Negative [facility] UA Auto SS WBC LM.HPF (Urine sed) [#/Area] 0-5 /HPF Normal 0-5/HPF [facility] UA Auto SS BLOOD BANKOrdered By: Janet Reyes on 08-22-2022 ABO/Rh Interp Positive Invalid Interpretation Code FT BB Subsection ABSC Gel Interp Negative (08/22/22 4:03 PM) Normal [facility] BB Subsection FMHV 0 mL Invalid Interpretation Code [facility] Man Sero CHEMISTRYOrdered By: SYSTEM SYSTEM on [...] PM) Normal Negative [facility] UA Auto SS [place].plasma/[place] .RBC (Bld) [Mass ratio] 0-3 /HPF Normal [...] [facility] UA Auto SS Urobilinogen Qn (U) 0.2162503 {Rola'U}/dL Normal 0.0 - 1.0 EU/dL [facility] [...] (Urine sed) [#/Area] 9-10 /HPF Normal 0-2/HPF [facility] UA Auto SS Glucose Test strip (U) [Mass/Vol] Negative (08/18/22 4:08 AM) Normal Negative [facility] UA Auto SS Hemoglobin Ql (U) Negative (08/18/22 4:08 AM) Normal Negative [facility] UA Auto SS Ketones (U) [Mass/Vol] Negative (08/18/22 4:08 AM) Normal Negative [facility] UA Auto SS [place].plasma/[place] .RBC (Bld) [Mass ratio] 0-3 /HPF Normal 0-3/HPF [facility] UA Auto SS Mucus Ql (Urine sed) 1+ (08/18/22 4:08 AM) Normal [facility] UA Auto SS Nitrite Ql (U) Negative (08/18/22 4:08 AM) Normal Negative [facility] UA Auto SS pH (U) 6.0 *NA* (08/18/22 4:08 AM) Invalid Interpretation Code 5.0 - 9.0 [facility] UA Auto SS Protein (U) [Mass/Vol] Negative (08/18/22 4:08 AM) Normal Negative [facility] UA Auto SS Specific gravity (U) [Rel density] 1.020 *NA* (08/18/22 4:08 AM) Invalid Interpretation Code 1.005 - 1.030 [facility] UA Auto SS UA Spec Desc Clean Catch (08/18/22 4:08 AM) Normal [facility] UA Auto SS Urobilinogen Qn (U) 0.9619016 {Rola'U}/dL Normal 0.0 - 1.0 EU/dL [facility] UA Auto SS WBC Auto Ql (U) 2+ *ABN* (08/18/22 4:08 AM) Invalid Interpretation Code Negative [facility] UA Auto SS WBC LM.HPF (Urine sed) [#/Area] 6-15 /HPF Invalid Interpretation Code 0-5/HPF [facility] UA Auto SS BLOOD BANKOrdered By: Tom Avelar on 08-13-2022 ABO/Rh Interp Positive Invalid Interpretation Code [facility] BB Subsection ABSC Gel Interp Negative (08/13/22 6:26 PM) Normal [facility] BB Subsection FMHV 0 mL Invalid Interpretation Code [facility] Man Sero CHEMISTRYOrdered By: SYSTEM SYSTEM on [...] Interpretation Code Negative [facility] UA Auto SS [place].plasma/[place] .RBC (Bld) [Mass ratio] 0-3 /HPF Normal [...] [facility] UA Auto SS Urobilinogen Qn (U) 0.8366175 {Rola'U}/dL Normal 0.0 - 1.0 EU/dL [facility] [...] [Mass/Vol] Negative (07/26/22 8:05 AM) Normal Negative [facility] UA Auto SS [place].plasma/[place] .RBC (Bld) [Mass ratio] 0-3 /HPF Normal 0-3/HPF [facility] UA Auto SS Nitrite Ql (U) Negative (07/26/22 8:05 AM) Normal Negative [facility] UA Auto SS pH (U) 8.0 *NA* (07/26/22 8:05 AM) Invalid Interpretation Code 5.0 - 9.0 [facility] UA Auto SS Protein (U) [Mass/Vol] Negative (07/26/22 8:05 AM) Normal Negative [facility] UA Auto SS Specific gravity (U) [Rel density] 1.015 *NA* (07/26/22 8:05 AM) Invalid Interpretation Code 1.005 - 1.030 [facility] UA Auto SS UA Spec Desc Clean Catch (07/26/22 8:05 AM) Normal [facility] UA Auto SS Urobilinogen Qn (U) 0.2228875 {Rola'U}/dL Normal 0.0 - 1.0 EU/dL [facility] UA Auto SS WBC Auto Ql (U) Trace *ABN* (07/26/22 8:05 AM) Invalid Interpretation Code Negative [facility] UA Auto SS WBC LM.HPF (Urine sed) [#/Area] 0-5 /HPF Normal 0-5/HPF [facility] UA Auto SS MICRO OTHER TESTSOrdered By: [...] Detected (07/17/22 9:20 AM) Normal Not Detected [facility] Man Sero URINALYSISOrdered By: Tonja pablo on [...] AM) Normal Negative [facility] UA Auto SS [place].plasma/[place] .RBC (Bld) [Mass ratio] 0-3 /HPF Normal [...] [facility] UA Auto SS Urobilinogen Qn (U) 0.8560653 {Rola'U}/dL Normal 0.0 - 1.0 EU/dL [facility] UA Auto SS WBC Auto Ql (U) Negative (07/17/22 9:25 AM) Normal Negative [facility] UA Auto SS WBC LM.HPF (Urine sed) [#/Area] 0-5 /HPF Normal 0-5/HPF [facility] UA Auto SS CHEMISTRYOrdered By: SYSTEM SYSTEM on 06-28-2022 Glucose 1 Hr post 50 g glucose PO [Mass/Vol] 93 mg/dL Normal 55 - 140 mg/dL [facility] Remisol HEMATOLOGYOrdered By: Keila Ring on 06-28-2022 Hematocrit (Bld) [Volume fraction] 35.4 % Normal 34.0 - 46.0 % [facility] HemeAutoSS Hemoglobin (Bld) [Mass/Vol] 12.1 g/dL Normal 12.0 - 16.0 gm/dL [facility] HemeAutoSS BLOOD BANKOrdered By: Alliso n Corrine on 06-19-2022 ABO/Rh Interp Positive Invalid Interpretation Code [facility] BB Subsection ABSC Gel Interp Negative (06/19/22 12:15 AM) Normal [facility] BB Subsection FMHV 0 mL Invalid Interpretation Code [facility] Man Sero CHEMISTRYOrdered By: SYSTEM SYSTEM on 06-19-2022 Albumin [Mass/Vol] 2.9 g/dL Low 3.3 - 5.0 gm/dL [facility] Remisol Albumin/Globulin [Mass ratio] 0.8 {ratio} Low 1.1 - 2.2 [facility] Remisol ALP [Catalytic activity/Vol] 44 [iU]/d Normal 21 - 98 Int._Unit/L [facility] ALT No additional P-5'-P [Catalytic activity/Vol] 23 [iU]/d Normal 6 - 46 Int._Unit/L [facility] Remisol Anion gap [Moles/Vol] 10 mmol/L Normal 6 - 16 mEq/L [facility] AST [Catalytic activity/Vol] 18 [iU]/d Normal 5 - 43 Int._Unit/L [facility] Bilirubin [Mass/Vol] 0.2 mg/dL Normal 0.0 - 1 .1 mg/dL [facility] Bilirubin.direct [Mass/Vol] mg/dL Normal 0.1 - 0.4 mg/dL [facility] Remisol Bilirubin.indirect [Mass or moles/Vol] Unable to Calculate mg/dL Invalid Interpretation Code 0.1 - 0.9 mg/dL [facility] Chloride [Moles/Vol] 103 mmol/L Normal 101 - 1 11 mmol/L [facility] CO2 [Moles/Vol] 25 mmol/L Normal 21 [...] [Mass/Vol] <10 (06/19/22 12:15 AM) Normal <10 [facility] Man Sero Fibrinogen Coag (PPP) [Mass/Vol] 367 [...] PM) Normal Negative [facility] UA Auto SS [place].plasma/[place] .RBC (Bld) [Mass ratio] 0-3 /HPF Normal [...] [facility] UA Auto SS Urobilinogen Qn (U) 0.1560212 {Rola'U}/dL Normal 0.0 - 1.0 EU/dL [facility] [...] PM) Normal Negative [facility] UA Auto SS [place].plasma/[place] .RBC (Bld) [Mass ratio] 0-3 /HPF Normal [...] Desc Random Urine (05/01/22 5:20 PM) Normal [facility] UA Auto SS Urobilinogen Qn (U) 1.9210190 {Rola'U}/dL Normal 0.0 - 1.0 EU/dL [facility] UA Auto SS WBC Auto Ql (U) Negative (05/01/22 5:20 PM) Normal Negative [facility] UA Auto SS WBC LM.HPF (Urine sed) [#/Area] 0-5 /HPF Normal 0-5/HPF [facility] UA Auto SS BLOOD BANKOrdered By: Shayy Medina on 04-02-2022 ABO/Rh Interp Positive Invalid Interpretation Code [facility] BB Subsection ABSC Gel Interp Negative (04/02/22 7:17 AM) Normal [facility] BB Subsection FMHV 0 mL Invalid Interpretation Code [facility] Man Sero CHEMISTRYOrdered By: SYSTEM SYSTEM on [...] [Mass/Vol] <10 (04/02/22 7:17 AM) Normal <10 [facility] Man Sero Fibrinogen Coag (PPP) [Mass/Vol] 399 [...] 183.0 E9/L Normal 150.0 - 500.0 E9/L [facility] [...] AM) Normal Negative [facility] UA Auto SS [place].plasma/[place] .RBC (Bld) [Mass ratio] 0-3 /HPF Normal [...] [facility] UA Auto SS Urobilinogen Qn (U) 0.5038213 {Rola'U}/dL Normal 0.0 - 1.0 EU/dL [facility] [...] PM) Normal Negative [facility] UA Auto SS [place].plasma/[place] .RBC (Bld) [Mass ratio] 0-3 /HPF Normal [...] [facility] UA Auto SS Urobilinogen Qn (U) 0.0274314 {Rola'U}/dL Normal 0.0 - 1.0 EU/dL [facility] [...] 93.4 fL Normal 80.0 - 100.0 fL [facility] HemeAutoSS Platelet mean volume (Bld) [Entitic vol] 8.3 fL Normal 6.4 - 10.8 fL [facility] HemeAutoSS Platelets (Bld) [#/Vol] 248.0 E9/L Normal 150.0 - 500.0 E9/L [facility] HemeAutoSS RBC (Bld) [#/Vol] 4.1 E12/L Low 4.3 - 5.9 E12/L [facility] HemeAutoSS WBC corrected for nucl RBC Auto (Bld) [#/Vol] 6.7 E9/L Normal 4.0 - 11.0 E9/L [facility] HemeAutoSS Reference Laboratory Testing Ordered By: Stephanie Diana on 02-15-2022 Test Code 730608 Invalid Interpretation Code [facility] SendOutsSS Test Name IG PAP CTNG HPV Invalid Interpretation Code [facility] SendOutsSS [place] 05-05-2021 CNPN Telephone (GSTCON) ----- SUSAN BRO ([id number]) 1995 F Date Time Provider Department 05/05/21 MARTHA WEBB GSTCON During your visit today, we recorded the following information about you: Tucker Bales Boom Boss 05/05/2021 10:37 AM Signed Patient left message [...] diligent work on this patient Tucker Bales Boom Boss 05/24/2021 2:23 PM Signed patient called and left a message today stating she needs to get this figured out she has not eaten in 3 days and cant even drink water now. Patient can be reached at [phone]- please read messages below for refresher Martha Webb MD 05/24/2021 4:30 PM Signed Please advise patient to go to ER for evaluation Tucker Bales Boom Boss 05/24/2021 4:35 PM Signed Had to leave a message for the patient, left the message to go to ER. Also returned the call to [facility] and spoke to Alejandra that patient needs to go to ER for evalution. 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 AT ONSET OF HEADACHE. MAY REPEAT AFTER 2 HOURS. DO NOT EXCEED 30 MG PER DAY. Problem List As Of Date: 05/05/2021 (None) Encounter Status:Closed by DANII HYDROLOGIC MODELERTUCKER on 05/06/21 [facility] 04-07-2021 CNPN Telephone (GSTCON) ----- SUSAN BRO ([id number]) 1995 F Date Time Provider Department 04/07/21 MARTHA WEBB GSTCON During your visit today, we recorded the following information about you: Tucker Bales Boom Boss 04/07/2021 12:31 PM Signed NM called and they need the GES solid orde rplaced even though she has to use ensure, please sign order in this encounter Allergies As of Date: 04/07/2021 Noted Allergy Reaction PENICILLINS 03/10/2021 2 - Rash Date Reviewed: 04/01/2021 Reviewed by: Odette Agosto MD - Fully Assessed Reason for Visit: Orders [681] Visit Diagnosis:Nausea [R11.0] Order(s):NM GASTRIC EMPTYING SOLID [3181454] Order #: [id number] FUTURE Prescriptions as of 04/07/2021 Sig: AMITRIPTYLINE 10 MG TABLET Take 1 tab at bed x 1 week, t* RIZATRIPTAN 10 MG DISINTEGRAT* Take 1 tablet by mouth as nee* Problem List As Of Date: 04/07/2021 (None) Encounter Status:Closed by MARTHA WEBB on 04/07/21 [facility] CNPNon 04-04-2021 CNPN Telephone (GSTCON) ----- SUSAN BRO ([id number]) 1995 F Date Time Provider Department 04/04/21 MARTHA WEBB GSTCON During your visit today, we recorded the following information about you: Tucker Hatchh Boom Boss 04/04/2021 1:40 PM Signed Patient called and is still waiting for you to place the order for her GES with ensure, she cant eat the eggs and toast Martha Webb MD 04/04/2021 4:48 PM Signed Let patient know I placed the order Tucker Bales Boom Boss 04/05/2021 11:41 AM [address] you place [...] Visit Diagnosis:Nausea [R11.0] Order(s):NM GASTRIC EMPTYING LIQUID [[id number]] Order #: [id number] FUTURE Prescriptions as of 04/04/2021 Sig: AMITRIPTYLINE 10 MG TABLET Take 1 tab at bed x 1 week, t* RIZATRIPTAN 10 MG DISINTEGRAT* Take 1 tablet by mouth as nee* Problem List As Of Date: 04/04/2021 (None) Encounter Status:Closed by MARTHA WEBB on 04/05/21 [facility] CNOVon 04-01-2021 CNOV Office Visit (NHMNS2 ) ----- SUSAN BRO ([id number]) 1995 F Date Time Provider Department 04/01/21 8:00 AM BERT NEGRETE NHMNS2 During your visit today, we recorded the following information about you: Pulse Blood pressure Weight Height 72/minute 111/67 70.9 kg 1.626 m Last Period 02/23/21 Rigoberto Zimmer Me 04/01/2021 7:54 AM Addendum Please start taking [...] at least 3 months. These include all gdme-kco-izchynm medications, triptans, narcotics, and butalbital containing medications [...] There h (more content not included)... Normal [facility] CNPNon 03-22-2021 CNPN Telephone (GSTCON) ----- SUSAN BRO ([id number]) 1995 F Date Time Provider Department 03/22/21 MARTHA WEBB During your visit today, we recorded the following information about you: Tucker Wiseman 03/22/2021 2:28 PM Signed Received: Today MD Eusebia Banks Cig Clinical Pool; Tucker Bales Boom Boss Let patient know esophagram was normal Next step is gastric emptying study I placed order for gastric emptying study Tucker Wiseman 03/22/2021 2:28 PM Signed Pt is notified, will schedule the GES Allergies As of Date: 03/22/2021 Noted Allergy Reaction PENICILLINS 03/10/2021 2 - Rash Date Reviewed: 03/10/2021 Reviewed by: Martha Webb MD - Fully Assessed Reason for Visit: Results [95] Problem List As Of Date: 03/22/2021 (None) Encounter Status:Closed by TUCKER LARA on 03/22/21 Normal [facility] XR ESOPHAGRAMon 03-17-2021 XR ESOPHAGRAM [...] symptoms. Other Findings: None. IMPRESSION: Normal esophagram. Golf Course Superintendent: LUCITA Transcribe Date/Time: Mar 17 2021 11:15A Dictated by : CRISTÓBAL SALINAS DO This examination was interpreted and the report reviewed and electronically signed by: CRISTÓBAL SALINAS DO on Mar 17 2021 11:18AM EST [id number] [facility] 03-10-2021 [facility] Office Visit (GSTCON ) ----- SUSAN BRO ([id number]) 1995 F Date Time Provider Department 03/10/21 11:15 AM MARTHA WEBB During your visit today, we recorded the following information about you: Pulse Blood pressure Weight Height 69/minute 108/76 73 kg 1.626 m Martha Webb MD 03/10/2021 12:03 PM Signed This note was created using [employer]. Subjective Susan Bro is a 25 year [...] COMMENT: Un (more content not included)... Normal [facility] SUSAN BRO ([id number]) 1995 F Date Time Provider Department 03/10/21 MARTHA WEBB During your visit today, we recorded the following information about you: Don Trevino Boom Boss 03/10/2021 1:24 PM Signed Failed fax in Alo7 from 03/10/2021 regarding this patient from Dr. Webb. Faxed manually to [phone]. Scanned fax confirmation/documents into Alo[employer]. Don Jorgeamada Boom Boss Allergies As of Date: 03/10/2021 Noted Allergy Reaction PENICILLINS 03/10/2021 2 - Rash Date Reviewed: 03/10/2021 Reviewed by: Martha Webb MD - Fully Assessed Reason for Visit: Electronic Communication [890] Problem List As Of Date: 03/10/2021 (None) Encounter Status:Closed by DON DIAZ on 03/10/21 Normal [facility] CBC WITH AUTO DIFFERENTIALon 10-14-2020 Basophils (Bld) [#/Vol] 0.06 10*3/uL [facility] Basophils/100 WBC (Bld) 0.6 % [facility] Eosinophils (Bld) [#/Vol] 0.36 10*3/uL [facility] Eosinophils/100 WBC (Bld) 3.4 % [facility] Erythrocyte distribution width (RBC) [Entitic vol] 13.2 % 11.6 - 14.8 % [facility] Hematocrit (Bld) [Volume fraction] 43.2 % 36 - 46 % [facility] Hemoglobin (Bld) [Mass/Vol] 14.1 g/dL 12 - 16 g/dL [facility] Immature granulocytes (Bld) [#/Vol] 0.03 10*3/uL [facility] Immature granulocytes/100 WBC (Bld) 0.30 % [facility] Comment on above: The IG parameter is the percentage of metamyelocytes, myelocytes and promyelocytes. An immature granulocyte count (IG) of 1% or more suggests the possibility of infection, an IG count of 3% is very likely related to an infection. Interpretation and review of laboratory results Abnormal [facility] Lymphocytes (Bld) [#/Vol] 1.47 10*3/uL [facility] Lymphocytes/100 WBC (Bld) 13.8 % [facility] MCH (RBC) [Entitic mass] 29.6 pg 26 - 34 pg [facility] MCHC (RBC) [Mass/Vol] 32.6 g/dL 31 - 3 7 g/dL [facility] MCV (RBC) [Entitic vol] 90.6 fL 80 - 100 fL [facility] Monocytes (Bld) [#/Vol] 0.58 10*3/uL [facility] Monocytes/100 WBC (Bld) 5.5 % [facility] Neutrophils (Bld) [#/Vol] 8.12 10*3/uL High [facility] Neutrophils/100 WBC (Bld) 76.4 % [facility] Nucleated RBC (Bld) [#/Vol] 0.00 10*3/uL [facility] Nucleated RBC/100 WBC (Bld) [Ratio] 0.0 % [facility] Platelet mean volume (Bld) [Entitic vol] 10.3 fL 9.4 - 12.4 fL [facility] Platelets (Bld) [#/Vol] 251 10*3/uL [facility] RBC (Bld) [#/Vol] 4.77 10*6/uL [facility] WBC (Bld) [#/Vol] 10.62 10*3/uL [facility] COVID-19/INFLUENZA A,B MOLEC [facility] 10-14-2020 COVID-19/INFLUENZA A,B MOLECULAR SARS-COV-2 (SANA): Not Detected INFLUENZA A (SANA): Not Detected INFLUENZA B (SANA): Not Detected Normal Not Detected [facility] Comment on above: Order Comment: This [...] at the following links: For Healthcare Providers: https://www.fda.gov/media/187893/download For Patients: https://www.fda.gov/media/854110/download Performed By: #### L [id number] #### [facility] [address], [place] [address] Raffy Yadav M.D. [id number] COVID-19/Influenza A,B Linnette varma 10-14-2020 Influenza A Not Detected Not Detected [facility] Influenza B Not Detected Not Detected [facility] Interpretation and review of laboratory results Normal [facility] SARS-CoV-2 Not Detected Not Detected [facility] This test was perfor med under the [...] the following links: For Healthcare Providers: https://www.fda.gov/media /860339/download For Patients: https://www.fda.gov/media /464236/download [facility] CT HEAD OR BRAIN WITHOUT CON TRASTon [...] SunOct 14, 2020 11:28:15 AM EST Normal [facility] Comment on above: Order Comment: Injur [...] paranasal sinuses are grossly unremarkable. [facility] 1. No acute intracra nial hemorrhage, focal edema or mass effect. Workstation ID: [id number] [facility] In Fu ji Speechq 10/14/2020 11:30 AM EST EXAMINATION: CT HEAD [...] mass effect. Workstation ID: [id number] [facility] Chem 7on 10-14-2020 Anion gap [Moles/Vol] 8 mmol/L Low 10 - 2 0 mmol/L [facility] Chloride [Moles/Vol] 112 mmol/L High 98 - 10 8 mmol/L [facility] Creatinine [Mass/Vol] 0.78 mg/dL 0.40 - 1.10 [facility] GFR/1.73 sq M predicted among non-blacks MDRD (S/P/Bld) [Vol rate/Area] The eGFR should be used for monitoring renal function only and not for medication dosing. [facility] GFR/1.73 sq M.predicted CKD-EPI (S/P/Bld) [Vol rate/Area] 105 >=60 mL/min/1.73 m2 [facility] Glucose [Mass/Vol] 78 mg/dL 65 - 99 mg/dL [facility] HCO3 [Moles/Vol] 24 mmol/L 21 - 32 mmol/L [facility] Interpretation and review of laboratory results Abnormal [facility] Potassium [Moles/Vol] 4.5 mmol/L 3.5 - 5.1 mmol/L [facility] Comment on above: moderate hemolysis, result may be falsely increased. Sodium [Moles/Vol] 139 mmol/L 135 - 145 mmol/L [facility] Urea nitrogen [Mass/Vol] 5 mg/dL Low 8 - 25 mg/dL [facility] Urea nitrogen/Creatinine [Mass ratio] 6.4 mg/mg Low [facility] Otheron 10-14-2020 Extra Tube Hold for add-ons. [facility] Comment on above: Auto resulted. URINALYSISon 10-14-2020 Bacteria Auto Ql (U) None Seen None Se en /hpf [facility] Bilirubin Ql (U) Negative Negative [facility] Clarity Refractometry automated (U) Cloudy Abnormal Clear [facility] Color (U) Yellow Colorless, Yellow [facility] Epithelial cells.squamous Auto (Urine sed) [#/Area] 18 High [facility] Glucose Auto test strip (U) [Mass/Vol] Negative Negative mg/dL [facility] Hemoglobin Auto test strip Ql (U) Negative Negative [facility] Interpretation and review of laboratory results Abnormal [facility] Ketones (U) [Mass/Vol] Negative Negat juju mg/dL [facility] Leukocyte esterase Auto test strip Ql (U) Trace Abnormal Negative [facility] h Mucus Auto (Urine sed) [#/Area] Many Abnormal None Seen, Rare /lpf [facility] Nitrite Auto test strip Ql (U) Negative Negative [facility] pH (U) 8.0 [pH] High [facility] Protein (U) [Mass/Vol] 30 Abnormal Negat juju mg/dL [facility] Comment on above: False positive resul ts may occur in urines with large amounts of hemoglobin, pH greater than 8.0, contrast medium, or disinfectants including ammonium compounds. RBC Auto (Urine sed) [#/Area] 3 [facility] Specific gravity (U) [Rel density] 1.028 High [facility] Urobilinogen (U) [Mass/Vol] 2.0 mg/dL Abnormal <2.0 [facility] WBC Auto (Urine sed) [#/Area] 3 [facility] Microscopic examinat ion is performed on all urinalysis samples and only positive findings are reported. The test for blood on the chemical analytic portion of urinalysis may also be positive due to hemoglobinuria and myoglobinuria and if red blood cells are present they are quantified by microscopic examination. [facility] hCG Urine, Qualitativeon HCG ( test) Ql (U) Negative Negative [facility] Interpretation and review of laboratory results Normal [facility] ABDOMEN, COMPLT ACUTE SERIES on 09-05-2020 ABDOMEN, COMPLT ACUTE SERIES Patient Name: SUSAN BRO STUDY: ABDOMEN, COMPLT ACUTE SERIES; 09/04/2020 11:54 pm INDICATION: constipation. COMPARISON: None. ACCESSION NUMBER(S): [id number] ORDERING CLINICIAN: BRAYDEN YANEZ TECHNIQUE: Abdomen supine [...] Electronically signed by: CANDACE AREVALO MD Normal [facility] BASIC METABOLIC PANELon 08-16 Anion gap [Moles/Vol] 12 mmol/L Normal 10 - 20 [facility] Comment on above: Performed By: #### B MP #### [address] [address] Calcium [Mass/Vol] 9.0 mg/dL Normal 8.6 - 10.3 [facility] Comment on above: Performed By: #### B MP #### [address] [address] Chloride [Moles/Vol] 105 mmol/L Normal 98 - 107 [facility] Comment on above: Performed By: #### B MP #### [address] [address] Creatinine [Mass/Vol] 0.90 mg/dL Normal 0.50 - 1.05 [facility] Comment on above: Performed By: #### B MP #### [address] [address] GFR- AM. >60 Normal >60 [facility] Comment on above: Result Comment: CALC ULATIONS OF ESTIMATED GFR ARE PERFORMED USING THE MDRD STUDY EQUATION FOR THE IDMS-TRACEABLE CREATININE METHODS. CLIN CHEM 2007;53:766-72 Performed By: #### B MP #### [address] [address] GFR-NON AM. >60 Normal >60 [facility] Comment on above: Performed By: #### B MP #### [address] [address] Glucose [Mass/Vol] 96 mg/dL Normal 74 - 99 [facility] Comment on above: Performed By: #### B MP #### [address] [address] HCO3 (Bld) [Moles/Vol] 25 mmol/L Normal 21 - 32 [facility] Comment on above: Performed By: #### B MP #### [address] [address] Potassium [Moles/Vol] 3.5 mmol/L Normal 3.5 - 5.3 [facility] Comment on above: Performed By: #### B MP #### [address] [address] Sodium [Moles/Vol] 138 mmol/L Normal 136 - 145 [facility] Comment on above: Performed By: #### B MP #### [address] [address] Urea nitrogen [Mass/Vol] 7 mg/dL Normal 6 - 23 [facility] Comment on above: Performed By: #### B MP #### [address] [address] CBCon 09-05-2020 Erythrocyte distribution width (RBC) [Ratio] 13.2 % Normal 11.5 - 14.5 [facility] Comment on above: Performed By: #### C BC #### [address] [address] Hematocrit (Bld) [Volume fraction] 42.5 % Normal 36.0 - 46.0 [facility] Comment on above: Performed By: #### C BC #### [address] [address] Hemoglobin (Bld) [Mass/Vol] 14.5 g/dL Normal 12.0 - 16.0 [facility] Comment on above: Performed By: #### C BC #### [address] [address] MCHC (RBC) [Mass/Vol] 34.2 g/dL Normal 32.0 - 36.0 [facility] Comment on above: Performed By: #### C BC #### [address] [address] MCV (RBC) [Entitic vol] 88 fL Normal 80 - 100 [facility] Comment on above: Performed By: #### C BC #### [address] [address] Platelets (Bld) [#/Vol] 272 10*3/uL Normal 150 - 450 [facility] Comment on above: Performed By: #### C BC #### [address] [address] RBC (Bld) [#/Vol] 4.86 x10E12/L Normal 4.00 - 5.20 [facility] Comment on above: Performed By: #### C BC #### [address] [address] WBC (Bld) [#/Vol] 12.5 10*3/uL High 4.4 - 11.3 [facility] Comment on above: Performed By: #### C BC #### [address] [address] HCG,URINEon 09-05-2020 Beta HCG ( test) Ql (U) Negative Normal Negative [facility] Comment on above: Performed By: #### H CGU #### [address] [address] Provider Note - ED v2on 08-16 Provider [...] documented data. 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 Data Referenced From Triage - ED 04-Sep-2020 22:51 [facility] Risk Screen - Adult Emergenc yon 09-05-2020 Risk Screen - Adult Emergency Preferred Language: Preferred Language: Preferred Language for Discussing Health Care (patient/designee)Slovenian Advanced Directives: Advance Directive/DNRno Family Violence Adult: [...] an injured patient at a Trauma Center ([facility]/ [place]): no Electronic Signatures: Nette Dorantes (SUPV) (Signed 04-Sep-2020 23:08) Authored: Preferred Language, Advanced Directives, Family Violence Adult, Learning Assessment (Patient), Learning Assessment (Other Learner), Pressure Injury/TB/Substance, Pressure Injury, CAGE Last Updated: 04-Sep-2020 23:08 by Nette Dorantes (SUPV) [facility] Triage - EDon [...] BMI (kg/m2): 38.627 Calculated BSA (m2) 2.15 [place] Coma Scale: Best Eye Response: (E4) spontaneous Best Motor Response: (M6) obeys commands Best Verbal Response: (V5) oriented [place] Score: 15 Cough lasting greater than 3 weeks: no Patient immunocompromised related to: N/A Allergies: yes Last menstrual period: 05-Aug-2020 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: (states no form of BC) [...] 04-Sep-2020 23:01 by Nette Dorantes (SUPV) Normal [facility] URINALYSISon 09-05-2020 Appearance (U) CLEAR Normal CLEAR [facility] Comment on above: Performed By: #### U A #### [address] [address] Bilirubin (U) [Mass/Vol] Negative Normal NEGATIVE [facility] Comment on above: Performed By: #### U A #### [address] [address] BLOOD Negative Normal NEGATIVE [facility] Comment on above: Performed By: #### U A #### [place] [id number] Color (U) Yellow Normal STRAW,YELLO W [facility] Comment on above: Performed By: #### U A #### [place] [id number] Glucose [Mass/Vol] Negative Normal NEGATIVE [facility] Comment on above: Performed By: #### U A #### [place] [address] Ketones Ql (U) Negative Normal NEGATIVE [facility] Comment on above: Performed By: #### U A #### [place] [address] Leukocyte esterase Test strip Ql (U) Negative Normal NEGATIVE [facility] Comment on above: Performed By: #### U A #### [place] [address] Nitrite Ql (U) Negative Normal NEGATIVE [facility] Comment on above: Performed By: #### U A #### [place] [address] pH (Bld) 5.0 Normal 5.0 - 8.0 [facility] Comment on above: Performed By: #### U A #### [place] [address] Protein (U) [Mass/Vol] Negative Normal NEGATIVE [facility] Comment on above: Performed By: #### U A #### [place] [address] Specific gravity (U) [Rel density] 1.015 Normal 1.005 - 1.035 [facility] Comment on above: Performed By: #### U A #### [place] [address] Urobilinogen Qn (U) <2.0 Normal 0.0 - 1.9 [facility] Comment on above: Performed By: #### U A #### [place] [address] , Urineon 10-26-202 0 Beta HCG ( test) Ql (U) Negative NEGATIVE [facility] [place] Comment on above: Specimens with hCG l evels near the threshold of the test (25 mIU/mL) may give a negative or indeterminate result. In such cases, another test should be performed with a new specimen in 48-72 hours. If early is suspected clinically in this setting, correlation with quantitative serum b-hCG level is suggested. [employer] has confirmed the use of plasma for this test. This has not been cleared or approved by the U.S. Food and Drug Administration. The FDA has determined that such clearance is not necessary. XR ELBOW RIGHT (2 VIEWS)on Ren, [facility] Incoming Radiant Results From [facility] - 08/09/2020 8:04 PM EDT EXAMINATION: TWO XRAY VIEWS OF THE RIGHT ELBOW 08/09/2020 7:50 pm COMPARISON: None. HISTORY: ORDERING SYSTEM PROVIDED HISTORY: Fall TECHNOLOGIST PROVIDED HISTORY: Fall FINDINGS: There is no elbow effusion. There is no acute fracture or dislocation. Alignment is normal. IMPRESSION: No acute abnormality. [employer] EXAMINATION: TWO XRA Y VIEWS OF THE RIGHT ELBOW 08/09/2020 7:50 pm COMPARISON: None. HISTORY: ORDERING SYSTEM PROVIDED HISTORY: Fall TECHNOLOGIST PROVIDED HISTORY: Fall FINDINGS: There is no elbow effusion. There is no acute fracture or dislocation. Alignment is normal. [employer] [place] No acute abnormality. [facility] [employer] [place] XR FEMUR RIGHT (MIN 2 VIEWS) on 08-09-2020 No acute osseous abnormality. [facility] [employer] [place], [facility] Incoming Radiant Results From [facility] - 08/09/2020 8:02 PM EDT EXAMINATION: 2 [...] tissue abnormality. IMPRESSION: No acute osseous abnormality. [employer] [place] EXAMINATION: 2 XRAY VIEWS OF THE RIGHT [...] osseous lesion. No focal soft tissue abnormality. [employer], BING XR KNEE RIGHT (3 VIEWS)on EXAMINATION: THREE X RAY VIEWS OF THE RIGHT KNEE 08/09/2020 7:50 pm COMPARISON: None. HISTORY: ORDERING SYSTEM PROVIDED HISTORY: Fall TECHNOLOGIST PROVIDED HISTORY: Fall FINDINGS: No acute fracture. Joint spaces are preserved. No joint effusion. [employer] BING Ren, [facility] Incoming Radiant Results From [facility] - 08/09/2020 8:04 PM EDT EXAMINATION: THREE XRAY VIEWS OF THE RIGHT KNEE 08/09/2020 7:50 pm COMPARISON: None. HISTORY: ORDERING SYSTEM PROVIDED HISTORY: Fall TECHNOLOGIST PROVIDED HISTORY: Fall FINDINGS: No acute fracture. Joint spaces are preserved. No joint effusion. IMPRESSION: Negative right knee radiographs. [employer] Negative right knee radiographs. [employer] BING XR SHOULDER RIGHT (MIN 2 VIE WS)on 08-09-2020 Ren, [facility] Incoming Radiant Results From [facility] - 08/09/2020 8:03 PM EDT EXAMINATION: THREE [...] IMPRESSION: No acute abnormality. Inferior clavicular spur [employer] BING No acute abnormality . Inferior clavicular spur [employer] BING EXAMINATION: THREE X RAY VIEWS OF THE RIGHT SHOULDER 08/09/2020 7:50 pm COMPARISON: None. HISTORY: ORDERING SYSTEM PROVIDED HISTORY: Fall TECHNOLOGIST PROVIDED HISTORY: Fall FINDINGS: Spurring inferior aspect of the mid clavicle. Glenohumeral joint is normally aligned. No evidence of acute fracture or dislocation. No abnormal periarticular calcifications. The AC joint is unremarkable in appearance. Visualized lung is unremarkable. [place], [place] CT CERVICAL SPINE WO IVCONon 07-23-2017 CT CERVICAL SPINE WO IVCON * * *Final Report* * *DATE OF EXAM: Jul 23 2017 1:33PM [facility] 0505 - CT CERVICAL SPINE WO [...] MCCLURE MD on Jul 23 2017 1:45PM [id number] [facility] ED NOTEon 07-23-2017 ED NOTE HNO ID: [id number] thor: Dinesh Sheehan (Rn) GILDARDO Mataervice: Emergency MedicineAuthor Type: Registered NurseType: ED NotesFiled: 07/23/2017 3:54 PMNote Text:Discharge instructions explained. Instructed to return for any worseningsymptoms or concerns. Pt verbalizes understanding of. [facility] ED NOTE HNO ID: [id number] Author: Dav HollyRn) MAHESH Yin Service: Emergency Medicine Author Type: Registered Nurse Type: ED Notes Filed: 07/23/2017 3:36 PM Note Text: Patient returned to the Emergency Department from [facility]. [facility] ED NOTE HNO ID: [id number] Author: Dav HollyRn) MAHESH Yin Service: Emergency Medicine Author Type: Registered Nurse Type: ED Notes Filed: 07/23/2017 2:49 PM Note Text: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 08-22-2022 15:14-0500 Mean blood pressure 86 mm[Hg] Luis Carlos Jung [facility] 08-22-2022 15:14-0500 Respiratory rate 18 /min Luis Carlos Jung [facility] 08-22-2022 15:14-0500 Systolic blood pressure 115 mm[Hg] Luis Carlos Jung [facility] 08-18-2022 12:28-0400 Hourly Rounding Luis Carlos Jung [facility] Comment on above: Result Comment: pt verbalizes understand ing of discharge instructions. pt states she has an appointment sunday with dr jung. pt ambulated out of unit 08-18-2022 10:28-0400 Hourly Rounding Luis Carlos Jung [facility] Comment on above: Result Comment: pt c/o left lower abd pa in. states it is intermittent and sharp. encouraged pt to get up and empty bladder. pt states pain is still /10. dr jung on unit & at bedside 08-18-2022 09:09-0400 Hourly Rounding Luis Carlos Jung [facility] Comment on above: Result Comment: pt sitting up in bed wit h breakfast tray, visitor at bedside 08-18-2022 07:15-0400 Blood Pressure Location Luis Carlos Fabiana [facility] 08-18-2022 07:15-0400 Diastolic blood pressure 56 mm[Hg] Luis Carlos Fabiana [facility] 08-18-2022 07:15-0400 Heart rate 69 /min Luis Carlos Fabiana [facility] 08-18-2022 07:15-0400 Mean blood pressure 74 mm[Hg] Luis Carlos Fabiana [facility] 08-18-2022 07:15-0400 Respiratory rate 16 /min Luis Carlos Jung [facility] 08-18-2022 07:15-0400 Systolic blood pressure 111 mm[Hg] Luis Carlos Fabiaan [facility] 08-18-2022 05:58-0400 Blood Pressure Location Luis Carlos Fabiana [facility] 08-18-2022 05:58-0400 Diastolic blood pressure 59 mm[Hg] Luis Carlos Fabiana [facility] 08-18-2022 05:58-0400 Heart rate 67 /min Luis Carlos Fabiana [facility] 08-18-2022 05:58-0400 Mean blood pressure 77 mm[Hg] Luis Carlos Fabiana [facility] 08-18-2022 05:58-0400 Respiratory rate 16 /min Luis Carlos Jung [facility] 08-18-2022 05:58-0400 Systolic blood pressure 113 mm[Hg] Luis Carlos Jung [facility] 08-18-2022 04:06-0400 Blood Pressure Location Luis Carlos Jung [facility] 08-18-2022 04:06-0400 Body temperature 98.06 [degF] Luis Carlos Jung [facility] 08-18-2022 04:06-0400 Diastolic blood pressure 65 mm[Hg] Luis Carlos Jung [facility] 08-18-2022 04:06-0400 Heart rate 70 /min Luis Carlos Jung [facility] 08-18-2022 04:06-0400 Mean blood pressure 79 mm[Hg] Luis Carlos Jung [facility] 08-18-2022 04:06-0400 Respiratory rate 16 /min Luis Carlos Jung [facility] 08-18-2022 04:06-0400 Systolic blood pressure 107 mm[Hg] Luis Carlos Jung [facility] 08-13-2022 20:04-0400 Hourly Rounding Luis Carlos Jung [facility] Comment on above: Result Comment: Patient discharged off u nit. Discharge instructions were reviewed. Pt walks off unit without any notable signs or symtpoms of distress. 08-13-2022 19:45-0400 Hourly Rounding Luis Carlos Jung [facility] 08-13-2022 19:45-0400 Hourly Rounding Luis Carlos Jung [facility] Comment on above: Result Comment: Patient sitting in bed. BPP results reviewed with patient. Pt denied any additional questions. Call light within reach. 08-13-2022 18:12-0400 Heart rate 88 /min Luis Carlos Jung [facility] 08-13-2022 18:12-0400 Nursing Progress Note Reason Other: Pt updated on orders received from . jose understanding Luis Carlos Jung [facility] 08-13-2022 18:12-0400 SaO2% (BldA) [Mass fraction] 99 % Luis Carlos Jung [facility] 08-13-2022 17:33-0400 Body temperature 97.88 [degF] Luis Carlos Jung [facility] 08-13-2022 17:33-0400 Diastolic blood pressure 72 mm[Hg] Luis Carlos Jung [facility] 08-13-2022 17:33-0400 Mean blood pressure 88 mm[Hg] Luis Carlos Jung [facility] 08-13-2022 17:33-0400 Respiratory rate 18 /min Luis Carlos Jung [facility] 08-13-2022 17:33-0400 Systolic blood pressure 121 mm[Hg] Luis Carlos Jung [facility] 07-26-2022 10:22-0400 Hourly Rounding Luis Carlos Jung [facility] Comment on above: Result Comment: discharge instructions p rovided and pt signs discharge consent with RN witness. pt preparing for discharge, belly band placed on pt. RN offers wheelchair exit for discharge and pt declines and wants to walk down on own. 07-26-2022 10:22-0400 Promise to Return Luis Carlos Jung [facility] 07-26-2022 10:00-0400 Hourly Rounding Luis Carlos Jung [facility] 07-26-2022 10:00-0400 Promise to Return Luis Carlos Jung [facility] 07-26-2022 09:15-0400 Blood Pressure Location Luis Carlos Jung [facility] 07-26-2022 09:15-0400 Body temperature 97.7 [degF] Luis Carlos Jung [facility] 07-26-2022 09:15-0400 Diastolic blood pressure 62 mm[Hg] Luis Carlos Montesinosten [facility] 07-26-2022 09:15-0400 Heart rate 70 /min Luis Carlos uJng [facility] 07-26-2022 09:15-0400 Hourly Rounding Luis Carlos Jung [facility] 07-26-2022 09:15-0400 Mean blood pressure 74 mm[Hg] Luis Carlos Montesinosten [facility] 07-26-2022 09:15-0400 Respiratory rate 18 /min Luis Carlos Jung [facility] 07-26-2022 09:15-0400 Systolic blood pressure 97 mm[Hg] Luis Carlos Jung [facility] 07-26-2022 09:00-0400 Promise to Return Luis Carlos Jung [facility] 07-26-2022 08:14-0400 Body temperature 98.06 [degF] Luis Carlos Jung [facility] 07-26-2022 08:14-0400 Diastolic blood pressure 66 mm[Hg] Luis Carlos Fabiana [facility] 07-26-2022 08:14-0400 Heart rate 81 /min Luis Carlos Jung [facility] 07-26-2022 08:14-0400 Mean blood pressure 80 mm[Hg] Luis Carlos Montesinosten [facility] 07-26-2022 08:14-0400 Respiratory rate 18 /min Luis Carlos Jung [facility] 07-26-2022 08:14-0400 Systolic blood pressure 109 mm[Hg] Luis Carlos Jung [facility] 07-17-2022 09:07-0400 Body temperature 97.88 [degF] Ko Dumas [facility] 07-17-2022 09:07-0400 Diastolic blood pressure 74 mm[Hg] Ko Dumas [facility] 07-17-2022 09:07-0400 Heart rate 85 /min Ko Dumas [facility] 07-17-2022 09:07-0400 Respiratory rate 16 /min Ko Dumas [facility] 07-17-2022 09:07-0400 SaO2% (BldA) [Mass fraction] 100 % Ko Dumas [facility] 07-17-2022 09:07-0400 Systolic blood pressure 117 mm[Hg] Ko Dumas [facility] 06-26-2022 21:38-0400 Blood Pressure Location Luis Carlos Jung [facility] 06-26-2022 21:38-0400 Diastolic blood pressure 61 mm[Hg] Luis Carlos Jung [facility] 06-26-2022 21:38-0400 Heart rate 83 /min Luis Carlos Jung [facility] 06-26-2022 21:38-0400 Hourly Rounding Luis Carlos Jung [facility] Comment on above: Result Comment: discharged ambulatory to po 06-26-2022 21:38-0400 Mean blood pressure 75 mm[Hg] Luis Carlos Jung [facility] 06-26-2022 21:38-0400 Respiratory rate 16 /min Luis Carlos Jung [facility] 06-26-2022 21:38-0400 Systolic blood pressure 102 mm[Hg] Luis Carlos Jung [facility] 06-26-2022 21:15-0400 Blood Pressure Location Luis Carlos Jung [facility] 06-26-2022 21:15-0400 Diastolic blood pressure 64 mm[Hg] Luis Carlos Jung [facility] 06-26-2022 21:15-0400 Heart rate 74 /min Luis Carlos Jung [facility] 06-26-2022 21:15-0400 Hourly Rounding Luis Carlos Jung [facility] 06-26-2022 21:15-0400 Mean blood pressure 78 mm[Hg] Luis Carlos Jung [facility] 06-26-2022 21:15-0400 Respiratory rate 16 /min Luis Carlos Jung [facility] 06-26-2022 21:15-0400 Systolic blood pressure 106 mm[Hg] Luis Carlos Jung [facility] 06-26-2022 21:05-0400 Body temperature 97.88 [degF] Luis Carlos Jung [facility] 06-26-2022 21:05-0400 Respiratory rate 18 /min Luis Carlos Jung [facility] 06-26-2022 21:00-0400 Hourly Rounding Luis Carlos Jung [facility] Comment on above: Result Comment: ice water given 06-19-2022 01:30-0400 Hourly Rounding Luis Carlos Jung [facility] Comment on above: Result Comment: updated on plan of care after speaking to dr jung. verb understanding and all d/c instructions provided. denies further needs/concerns. ambulates off unit without any further questions. 06-19-2022 01:00-0400 Hourly Rounding Luis Carlos Jung [facility] Comment on above: Result Comment: rests in bed on phone. d enies any needs. denies any pain at this time or any pain or cramping since arrival. call light within reach 06-19-2022 00:15-0400 Hourly Rounding Luis Carlos Jung [facility] 06-18-2022 23:54-0400 Body temperature 97.88 [degF] Luis Carlos Jung [facility] 06-18-2022 23:54-0400 Diastolic blood pressure 65 mm[Hg] Luis Carlos Jung [facility] 06-18-2022 23:54-0400 Heart rate 76 /min Luis Carlos Jung [facility] 06-18-2022 23:54-0400 Mean blood pressure 81 mm[Hg] Luis Carlos Jung [facility] 06-18-2022 23:54-0400 Respiratory rate 18 /min Luis Carlos Jung [facility] 06-18-2022 23:54-0400 Systolic blood pressure 112 mm[Hg] Luis Carlos Jugn [facility] 06-18-2022 23:45-0400 Blood Pressure Location Luis Carlos Jung [facility] 05-01-2022 17:45-0400 Hourly Rounding Luis Carlos Jung [facility] Comment on above: Result Comment: reviewed disch inst and meds to take states understanding 05-01-2022 17:30-0400 Hourly Rounding Luis Carlos Jung [facility] 05-01-2022 17:23-0400 Body temperature 98.06 [degF] Luis Carlos Jung [facility] 05-01-2022 17:23-0400 Diastolic blood pressure 57 mm[Hg] Luis Carlos Jung [facility] 05-01-2022 17:23-0400 Heart rate 83 /min Luis Carlos Jung [facility] 05-01-2022 17:23-0400 Mean blood pressure 71 mm[Hg] Luis Carlos Jung [facility] 05-01-2022 17:23-0400 Respiratory rate 16 /min Luis Carlos Jung [facility] 05-01-2022 17:23-0400 Systolic blood pressure 99 mm[Hg] Luis Carlos Jung [facility] 05-01-2022 17:15-0400 Blood Pressure Location Luis Carlos Jung [facility] 05-01-2022 17:15-0400 Hourly Rounding Luis Carlos Jung [facility] 04-02-2022 13:30-0400 Hourly Rounding Luis Carlos Jung [facility] Comment on above: Result Comment: pt given discharge instr uctions at this time to follow up with fabiana sunday or states understanding to call office tomorrow for appointment 04-02-2022 12:30-0400 Hourly Rounding Luis Carlos Jung [facility] Comment on above: Result Comment: pt returns to bed from [facility] at this time denies discomfort at this time 04-02-2022 11:30-0400 Hourly Rounding Luis Carlos Jung [facility] Comment on above: Result Comment: pt sitting in bed at thi s time denies needs or discomfort 04-02-2022 06:28-0400 Body temperature 99.68 [degF] Luis Carlos Jung [facility] 04-02-2022 06:28-0400 Diastolic blood pressure 68 mm[Hg] Luis Carlos Jung [facility] 04-02-2022 06:28-0400 Heart rate 89 /min Luis Carlos Jung [facility] 04-02-2022 06:28-0400 Heart rate 86 /min Luis Carlos Jung [facility] 04-02-2022 06:28-0400 Mean blood pressure 83 mm[Hg] Luis Carlos Jung [facility] 04-02-2022 06:28-0400 Respiratory rate 20 /min Luis Carlos Jung [facility] 04-02-2022 06:28-0400 SaO2% (BldA) [Mass fraction] 98 % Luis Carlos Jung [facility] 04-02-2022 06:28-0400 Systolic blood pressure 114 mm[Hg] Luis Carlos Jung [facility] 03-23-2022 21:08-0400 Hourly Rounding Luis Carlos Jung [facility] Comment on above: Result Comment: Patient ambulatory off u nit. No signs or symptoms of distress noted. 03-23-2022 20:35-0400 Hourly Rounding Luis Carlos Jung [facility] Comment on above: Result Comment: Patient updated on plan of care. Verbalizes understanding. Call light in reach. 03-23-2022 19:49-0400 Blood Pressure Location Luis Carlos Jung [facility] 03-23-2022 19:49-0400 Body temperature 98.78 [degF] Luis Carlos Jung [facility] 03-23-2022 19:49-0400 Diastolic blood pressure 66 mm[Hg] Luis Carlos Jung [facility] 03-23-2022 19:49-0400 Heart rate 69 /min Luis Carlos Jung [facility] 03-23-2022 19:49-0400 Hourly Rounding Luis Carlos Jung [facility] Comment on above: Result Comment: Patient arrives on unit. 03-23-2022 19:49-0400 Mean blood pressure 79 mm[Hg] Luis Carlos Jung [facility] 03-23-2022 19:49-0400 Respiratory rate 16 /min Luis Carlos Jung [facility] 03-23-2022 19:49-0400 Systolic blood pressure 106 mm[Hg] Luis Carlos Jung [facility] 10-14-2020 13:15-0500 Pulse (Heart Rate) 74 /min [facility] 10-14-2020 13:15-0500 Pulse Oximetry 98 % [facility] 10-14-2020 13:15-0500 Respiratory Rate 16 /min [facility] 10-14-2020 13:00-0500 BP Diastolic 74 mm[Hg] [facility] 10-14-2020 13:00-0500 BP Systolic 123 mm[Hg] [facility] 10-14-2020 10:13-0500 BMI (Body Mass Index) 34.33 kg/m2 [facility] 10-14-2020 10:13-0500 Body Temperature 97.81 [degF] [facility] 10-14-2020 10:13-0500 Body weight 90.72 kg [facility] 10-14-2020 10:13-0500 Height 162.6 cm [facility] 08-09-2020 20:33-0400 BP Diastolic 81 mm[Hg] [address] Pervasip [facility] [place] 08-09-2020 20:33-0400 BP Systolic 122 mm[Hg] [address]ari Court [employer] [facility] [place] 08-09-2020 20:33-0400 Pulse (Heart Rate) 78 /min [address] Pervasip [facility] [place] 08-09-2020 20:33-0400 Respiratory Rate 16 /min [address] Pervasip [facility] [place] 08-09-2020 19:03-0400 BMI (Body Mass Index) 39.48 kg/m2 [address] Pervasip [facility] [place] 08-09-2020 19:03-0400 Body Temperature 98.29 [degF] [facility] [place] 08-09-2020 19:03-0400 Body weight 104.[address] Pervasip [facility] [place] 08-09-2020 19:03-0400 Height 162[address] [facility] [place] 08-09-2020 19:03-0400 Pulse Oximetry 98 % [address] [facility] [place] Encounters Encounter Date Encounter Type Care Provider Facility Start: 09-09-2024 End: 09-09-2024 Office outpatient visit 15 minutes Rashaun Amador DO Work Phone: [facility] Comment on above: Menorrhagia with reg ular cycle Start: 03-11-2024 End: 03-12-2024 ambulatory ZORAN MYRICK Facility:[facility] Start: 02-08-2024 End: 02-08-2024 ambulatory [facility] Facility[facility] Start: 02-08-2024 End: 02-08-2024 ambulatory [facility] Work Phone: [facility] Work Phone: Start: 02-08-2024 End: 02-08-2024 Departed Referred [facility] Work Phone: [facility] Start: 01-22-2024 End: 01-22-2024 ambulatory RASHAUN PERRY Not Available Start: 12-04-2023 End: 12-04-2023 ambulatory RASHAUN PERRY Not Available Start: 11-27-2023 Bamboo flowsheet Rashaun Perry D [...] End: 11-30-2023 Pre-admission assessment Rashaun R PERRY [facility] Start: 11-04-2023 End: 11-04-2023 ambulatory Rashaun R PERRY Facility:[facility] Start: 11-04-2023 End: 11-04-2023 OB Triage Rashaun R PERRY [facility] Start: 10-31-2023 End: 10-31-2023 ambulatory RASHAUN PERRY Not Available Start: 10-18-2023 End: 01-04-2024 ambulatory DODIE MILLER Not Available Start: 10-03-2023 End: 10-03-2023 ambulatory DODIE MILLER Not Available Start: 09-12-2023 End: 09-12-2023 ambulatory RASHAUN AMADOR Not Available Start: 08-23-2023 End: 08-23-2023 Lab Drop off ZORAN MYRICK [facility] Start: 08-23-2023 End: 08-24-2023 ambulatory ZORAN MYRICK Facility:[facility] Start: 08-19-2023 End: 09-14-2023 Pre-admission assessment Julia Haywood [facility] Start: 08-18-2023 End: 08-18-2023 ambulatory DO Julia [place] Facility:[facility] Start: 08-18-2023 End: 08-18-2023 OB Triage Julia Wallace Haywood [facility] Start: 07-25-2023 End: 07-25-2023 Emergency department patient visit Kristian Guillermo Facility:[facility] Start: 07-25-2023 End: 07-25-2023 Emergency department patient visit Kristian Guillermo [facility] Start: 06-28-2023 End: 06-29-2023 ambulatory Roverto V. Spasic Facility:[facility] Start: 06-28-2023 End: 06-28-2023 Patient encounter procedure Roverto V. Spasic [facility] Start: 06-14-2023 End: 06-14-2023 Emergency department patient visit Kristian Guillermo Facility:[facility] Start: 06-14-2023 End: 06-14-2023 Emergency department patient visit Kristian Guillermo [facility] Start: 06-12-2023 End: 06-13-2023 ambulatory Luis Carlos Jung Facility:[facility] Start: 06-12-2023 End: 06-12-2023 Patient encounter procedure Luis Carlos Rochelle Jung [facility] Start: 05-21-2023 End: 05-22-2023 Emergency department patient visit Gopi Rodriguez Facility:[facility] Start: 05-21-2023 End: 05-21-2023 Emergency department patient visit Gopi Rodriguez [facility] Start: 04-30-2023 End: 05-01-2023 ambulatory Luis Carlos Rochelle Jung Facility:[facility] Start: 04-30-2023 End: 04-30-2023 Lab Drop off Luis Carlos Jung [facility] Start: 04-30-2023 End: 05-01-2023 ambulatory Luis Carlos Jung Facility:[facility] Start: 04-30-2023 End: 04-30-2023 Patient encounter procedure Luis Carlos Rochelle Jung [facility] Start: 04-26-2023 End: 04-26-2023 Emergency department patient visit Laura Leonfelipe Facility:[facility] Start: 04-26-2023 End: 04-26-2023 Emergency department patient visit Laura Leonfelipe [facility] Start: 01-31-2023 End: 01-31-2023 Emergency department patient visit Kristian Guillermo [facility] Start: 09-22-2022 End: 09-22-2022 OB Triage Luis Carlos Jung [facility] Start: 09-20-2022 End: 09-20-2022 OB Triage Luis Carlos Byrd Fabiana [facility] Start: 09-19-2022 End: 09-19-2022 OB Triage Jj MIKE [facility] Start: 09-14-2022 End: 09-14-2022 OB Triage Luis Carlos Byrd Fabiana [facility] Start: 09-12-2022 End: 09-12-2022 OB Triage Luis Carlos Byrd Fabiana [facility] Start: 09-08-2022 End: 09-08-2022 OB Triage Luis Carlos Byrd Fabiana [facility] Start: 09-05-2022 End: 09-05-2022 Emergency department patient visit Gopi White Arseniotoña [facility] Start: 09-05-2022 End: 12-05-2022 Patient encounter procedure SELF REFERRAL [facility] Start: 09-04-2022 End: 09-04-2022 Lab Drop off Luis Carlos Byrd Fabiana [facility] Start: 08-30-2022 End: 08-31-2022 OB Triage Luis Carlos Byrd Fabiana [facility] Start: 08-22-2022 End: 08-22-2022 OB Triage Luis Carlos Jung [facility] Start: 08-18-2022 End: 08-18-2022 OB Triage Luis Carlos Jung [facility] Start: 08-13-2022 End: 08-13-2022 OB Triage Luis Carlos Jung [facility] Start: 07-26-2022 End: 07-26-2022 OB Triage Luis Carlos Jung [facility] Start: 07-17-2022 End: 07-17-2022 Emergency department patient visit Ko Dumas [facility] Start: 06-28-2022 End: 06-28-2022 Patient encounter procedure Luis Carlos Jung [facility] Start: 06-26-2022 End: 06-26-2022 OB Triage Luis Carlos Jung [facility] Start: 06-20-2022 End: 07-15-2022 Pre-admission assessment Luis Carlos Jung [facility] Start: 06-18-2022 End: 06-19-2022 OB Triage Luis Carlos Jung [facility] Start: 05-02-2022 End: 06-15-2022 Pre-admission assessment THANG MILLAN [facility] Start: 05-01-2022 End: 05-01-2022 OB Triage Luis Carlos Rochelle Jung [facility] Start: 04-02-2022 End: 04-02-2022 OB Triage Luis Carlos Jung [facility] Start: 03-23-2022 End: 03-23-2022 OB Triage Luis Carlos Jung [facility] Start: 03-16-2022 End: 03-16-2022 Patient encounter procedure Luis Carlos Jung [facility] Start: 02-15-2022 End: 02-15-2022 Lab Drop off Luis Carlos Jung [facility] Start: 02-23-2021 End: 02-23-2021 Patient encounter procedure Martha Webb MD Work Phone: [facility] Start: 02-23-2021 Results Only Martha Webb MD Work Phone: Gastroenterology Start: 10-14-2020 End: 10-14-2020 Emergency department patient visit PHYSICIAN RONN [facility] Start: 10-14-2020 End: 10-14-2020 Emergency department patient visit Regine Ezra Work Phone: [facility] Emergency Department Comment on above: Vertigo (Primary Dx) Start: 08-09-2020 End: 08-09-2020 Emergency department patient visit BAKARI [facility] Start: 08-09-2020 End: 08-09-2020 Emergency department patient visit Bakari A [facility] Work Phone: [facility] ED Comment on above: Contusion of right k nee, initial encounter (Primary Dx); Contusion of multiple sites of right shoulder and upper arm, initial encounter Start: 07-23-2017 End: 07-23-2017 Emergency department patient visit NKECHI TORRES [facility] Guerra Procedures Date Procedure Procedure Detail Performing Clinician Start: 11-27-2023 ALL THYROID STIM HORMONE Rashaun Perry DO Work Phone: Start: 11-27-2023 Urnls dip stick/tablet rgnt non-auto w/o micrscp Rashaun Thompsono DO Work Phone: Start: 11-20-2023 Urnls dip stick/tablet rgnt non-auto w/o micrscp Rashaun Thompsono DO Work Phone: Start: 04-30-2023 Microscopic observation [...] vaccination Tetanus: Every 1 0yrs [facility] Start: 04-30-2028 Screening for malign ant neoplasm of cervix [facility] Start: 09-09-2024 End: 09-09-2025 aPTT in Blood by Coagulation assay APTT Lab Routine Menorrhagia with regular cycle Expected: 09/09/2024 (Approximate), Expires: 09/09/2025 [facility] Comment on above: Expected: 09/09/2024 (Approximate), Expires: 09/09/2025 Start: 09-09-2024 End: 09-09-2025 US for US PELVIS-TRANSVAG IF INDICATED Imaging Routine Menorrhagia with regular cycle Expected: 09/09/2024 (Approximate), Expires: 09/09/2025 [facility] Comment on above: Expected: 09/09/2024 (Approximate), Expires: 09/09/2025 Start: 06-15-2024 Influenza vaccination Influenza Vacc ine (#1) [facility] Start: 01-22-2024 End: 01-22-2024 Patient encounter procedure 01/22/2024 8:40 AM EDT Consult [facility] [address] [place] [id number] Rashaun Amador, DO [address] [place], [place] [id number] [facility] Start: 12-04-2023 End: 12-04-2023 Patient encounter procedure 12/04/2023 9:00 AM EST Routine [facility] [address] [place] [address] Rashaun Amador, DO [address] [place], [place] [id number] [facility] Start: 11-27-2023 End: 11-27-2024 Strep B DNA probe, amplification Strep B DNA probe, amplification Lab Routine Third trimester Expected: 11/27/2023 (Approximate), Expires: 11/27/2024 [facility] Work Phone: Comment on above: Expected: 11/27/2023 (Approximate), Expires: 11/27/2024 Start: 11-27-2023 End: 11-27-2023 Patient encounter procedure [facility] Comment on above: Arrived Start: 11-21-2023 End: 11-21-2023 Professional / ancillary services management 11/21/2023 8:30 AM EST Ancillary Procedure [facility] [address] [place] [address] [facility] Start: 06-15-2021 Influenza vaccination INFLUENZ A (Season Ended) [facility] Start: 06-15-2020 Influenza vaccination Flu vaccine (# 1) [place], [place] Start: 2014 PAP TESTING PAP TESTING [facility] Start: 2014 Screening for malign ant neoplasm of cervix Cervical cancer screen [place], [place] Start: 2012 DTaP/Tdap/Td vaccine (1 - Tdap) DTaP/Tdap/Td vaccine (1 - Tdap) [place] Start: 2012 Urine microalbumin profile DTAP,TDAP,TD (1 - Tdap) [facility] Start: 2011 Hepatitis C antibody , confirmatory test Hepatitis C Screening [facility] Start: 2011 HEPATITIS C SCREENING HEPATITIS C SC REENING [facility] Start: 2011 HIV SCREENING HIV SCREENING [facility] Start: 2008 HIV screening [place], [place] Start: 2005 Adolescent depressio n screening assessment [facility] Start: 2004 HPV vaccine (1 - 2-d ose series) HPV vaccine (1 - 2-dose series) [place] Start: 1996 History and physical examination, annual for health maintenance Wellness Visit [facility] Start: 1994 Varicella vaccine (1 of 2 - 2-dose childhood series) Varicella vaccine (1 of 2 - 2-dose childhood series) [place] Start: 1993 Screening for malign ant neoplasm of cervix Pap Smear [facility] CBC W Auto Different ial panel - Blood CBC and differential Lab Routine Menorrhagia with regular cycle Ordered: 09/09/2024 [facility] Work Phone: Comment on above: Ordered: 09/09/2024 hCG, quantitative, hCG, quantitative, Lab Routine Menorrhagia with regular cycle Ordered: 09/09/2024 [facility] Comment on above: Ordered: 09/09/2024 Hemoglobin A1c/Hemoglobin.total in Blood Hemoglobin A1c Lab Routine Menorrhagia with regular cycle Ordered: 09/09/2024 [facility] Comment on above: Ordered: 09/09/2024 Prothrombin time (PT ) in Blood by Coagulation assay Protime-INR Lab Routine Menorrhagia with regular cycle Ordered: 09/09/2024 [facility] Comment on above: Ordered: 09/09/2024 PT ED PATIENT INFORMATION PT ED PATIENT INFORMATION Other 02/23/2021 [facility] Thyrotropin [Units/volume] in Serum or Plasma TSH Lab Routine Menorrhagia with regular cycle Ordered: 09/09/2024 [facility] Comment on above: Ordered: 09/09/2024 Thyroxine (T4) free [Mass/volume] in Serum or Plasma T4, free Lab Routine Menorrhagia with regular cycle Ordered: 09/09/2024 [facility] Comment on above: Ordered: 09/09/2024 Guerra Kiera c Immunizations Immunization Date Immunization Notes Care Provider Lennox ramirez 08-18-2023 influenza, seasonal, injectable Julia Haywood [facility] 08-18-2023 influenza virus vaccine, unspecified formulation Rashaun Amador DO Work Phone: [facility] 09-25-2022 influenza, seasonal, injectable SELF REFERRAL [facility] Comment on above: Early/Late Reason: E isaac/Late Reason: Nursing Judgment 01-28-2021 COVID-19, mRNA, LNP- S, PF, 30 mcg/0.3 mL dose; Translations: [Pfizer-BioNTech COVID-19 Vaccine] Luis Carlos Fabiana [facility] Comment on above: Reason for Medicatio n: Prophylaxis Reason for Medicatio n: Prophylaxis 12-31-2020 COVID-19, mRNA, LNP- S, PF, 30 mcg/0.3 mL dose; Translations: [Pfizer-BioNTech COVID-19 Vaccine] Luis Carlos Fabiana [facility] Comment on above: Reason for Medicatio n: Prophylaxis Reason for Medicatio n: Prophylaxis 05-12-2018 tetanus toxoid, reduced diphtheria toxoid, and acellular pertussis vaccine, adsorbed; Translations: [Adacel (Tdap)] Luis Carlos Jung [facility] Payers Date Payer Category Payer Self-pay [id number] 2022 Medicaid [employer] [place] [id number] 2022-Present [address] [place] [address] [id number] 2022 Medicaid (Managed Care) [facility] MEDICAID [id number] 2019 Unknown [id number] 2019 Unknown [id number] [id number]. 7.3.709202.315 1993 Unknown [id number] 2.16.840.1.347184.3.579.2. 173 1993 Unknown [id number] 2.16.840.1.520426.3.579.2. 903 1993 Unknown [id number] 2.16.840.1.540961.3.579.2. 1259 1993 Unknown [id number] 2.16.840.1.193161.3.579.2. 1259 1993 Unknown [id number] 2.16.840.1.873939.3.579.2. 1259 1993 Unknown [id number] 2.16.840.1.751349.3.579.2. 1259 1993 Unknown [id number] 2.16.840.1.850805.3.579.2. 1259 1993 Unknown [id number] 2.16.840.1.405871.3.579.2. 1259 1993 Unknown [id number] 2.16.840.1.909497.3.579.2. 1259 1993 Unknown [id number] 2.16.840.1.077546.3.579.2. 1259 1993 Unknown [id number] 2.16.840.1.867768.3.579.2. 1259 1993 Unknown [id number] 2.16.840.1.727479.3.579.2. 1259 1993 Unknown [id number] 2.16.840.1.587180.3.579.2. 72 1993 Unknown [id number] 2.16.840.1.647410.3.579.2. 72 1993 Unknown [id number] 2.16.840.1.515688.3.579.2. 72 1993 Unknown [id number] 2.16.840.1.442776.3.579.2. 72 1993 Unknown [id number] 2.16.840.1.131366.3.579.2. 72 1993 Unknown [id number] 2.16.840.1.899275.3.579.2. 72 1993 Unknown [id number] 2.16.840.1.481325.3.579.2. 72 1993 Unknown [id number] 2.16.840.1.050145.3.579.2. 727 1993 Unknown [id number] 2.16.840.1.723855.3.579.2. 72 1993 Unknown [id number] 2.16.840.1.394661.3.579.2. 72 1993 Unknown [id number] 2.16.840.1.549141.3.579.2. 72 1993 Unknown [id number] 2.16.840.1.522900.3.579.2. 72 1993 Unknown [id number] 2.16.840.1.874939.3.579.2 72 Unknown [id number] 2.16.840.1.184433.3.579.2. 531 Social History Date Type Detail Facility Start: 08-09-2020 End: 10-14-2020 Tobacco smoking status NHIS Current every day smoker [place] Start: 08-09-2020 End: 10-14-2020 Tobacco use and exposure Never used [place] Start: 10-14-2020 Alcohol intake Ex-drinker (finding) [facility] Start: 1993 Sex Assigned At Not on file [place] Exposure to SARS-CoV -2 (event) Not sure [place] Start: 08-09-2020 Cigarettes smoked current (pack per day) - Reported [place] Start: 08-09-2020 Alcohol intake Lifetime non-d val (finding) [place] Start: 08-09-2020 History SDOH Alcohol Frequency 1 [place] Start: 07-06-2021 End: 08-18-2022 Tobacco smoking status Light tobacco smoker (finding) [facility] Sex Assigned At Female [facility] Tobacco [facility] Comment on above: current current denies Start: 06-28-2023 Tobacco smoking status Ex-smoker (fi nding) [facility] Comment on above: current Tobacco smoking status Never [facility] Comment on above: current Tobacco smoking status No Smokin g Status Entered [facility] Start: 04-02-2023 [facility] Start: 1995 Sex Assigned At Female [facility] Start: 07-03-2023 Gender identity Identifies as female gender (finding) [facility] Start: 07-03-2023 Sexual orientation Heterosexual (fin ding) [facility] Start: 04-10-2020 Tobacco smoking stat us MDIS Smoker (finding) [facility] Goals Date Patient Goal Desired Activity /State Personal health goal Functional Status Date Assessment Result Facility 11-04-2023 Functional Status N/A [facility] 08-18-2023 Functional Status N/A [facility] 07-25-2023 Functional Status N/A [facility] 06-28-2023 Functional Status N/A [facility] 06-14-2023 Functional Status N/A [facility] 05-21-2023 Functional Status N/A [facility] 04-26-2023 Functional Status N/A [facility] 01-31-2023 Functional Status N/A [facility] 09-22-2022 Functional Status N/A [facility] 09-20-2022 Functional Status N/A [facility] 09-19-2022 Functional Status N/A [facility] 09-14-2022 Functional Status N/A [facility] 09-12-2022 Functional Status N/A [facility] 09-08-2022 Functional Status N/A [facility] 09-05-2022 Functional Status Yes [facility] 08-30-2022 Functional Status N/A [facility] 08-22-2022 Functional Status N/A [facility] 08-18-2022 Functional Status N/A [facility] 08-13-2022 Functional Status N/A [facility] 07-26-2022 Functional Status N/A [facility] 07-17-2022 Functional Status N/A [facility] 06-26-2022 Functional Status N/A [facility] 06-18-2022 Functional Status N/A [facility] 05-01-2022 Functional Status N/A [facility] 04-02-2022 Functional Status N/A [facility] Clinical Notes 03-10-2021 to 09-09-2024 Althea Suggs LPN - 09/09/2024 8:50 AM Alessandro Suggs LPN - 11/27/2023 8:30 AM Alessandro Suggs LPN - 11/20/2023 11:10 AM EST Note Date & Type Note Facility 09-09-2024 History of Present illness Narrative Reason for Appointment: Patient ID: Susan Bro is a 28 y.o. female who presents for Menstrual Problem (Heavy cycles) Patient presents today for Acute Visit. MEDICATIONS Current Outpatient Medications Medication Instructions citalopram (CELEXA) 20 mg, Oral, Daily levothyroxine (SYNTHROID) 125 mcg, Oral, Daily before breakfast MV-Min-Fe Fum-FA-DHA ( 1 PO) 1 each, Oral, Daily ALLERGIES Allergies Allergen Reactions Amoxicillin Penicillins Other Reaction(s): Rash Penicillin G Procaine Rash PROBLEMS Active Ambulatory Problems Diagnosis Date Noted No Active Ambulatory Problems Resolved Ambulatory Problems Diagnosis Date Noted No Resolved Ambulatory Problems Past Medical History: Diagnosis Date Depression (CMS/HCC) Dysphagia Low thyroid stimulating hormone (TSH) level HISTORY PAST MEDICAL HISTORY SOCIAL HISTORY Past Medical History: Diagnosis Date Depression (CMS/HCC) Dysphagia Low thyroid stimulating hormone (TSH) level Social History Tobacco Use Smoking status: Not on file Smokeless tobacco: Not on file Substance Use Topics Alcohol use: Not on file Drug use: Not on file FAMILY HISTORY Family History Problem Relation Name Age of Onset Diabetes Mother Hypertension Mother Heart disease Maternal Grandfather SURGICAL HISTORY Past Surgical History: Procedure Laterality Date CHOLECYSTECTOMY 2019 REVIEW OF SYSTEMS Review of Systems: Review of Systems Constitutional: Negative. HENT: Negative. Eyes: Negative. Respiratory: Negative. Cardiovascular: Negative. Gastrointestinal: Negative. Genitourinary: Positive for menstrual problem. Musculoskeletal: Negative. Skin: Negative. Neurological: Negative. All other systems reviewed and are negative. Hematological: Negative. Endocrine: Negative. Allergic/Immunologic: Negative. OBJECTIVE Objective: Physical Exam Constitutional: Appearance: Normal appearance. She [...] nursing note reviewed. Exam conducted with a side door man present. Vitals: Estimated body mass index is 34.33 kg/m as calculated from the following: Height as of 01/22/24: 5' 3 . Weight as of 01/22/24: 193 lb 12.8 oz. BP: No LMP recorded. ASSESSMENT & PLAN ICD-10-CM 1. Menorrhagia with regular cycle N92.0 CBC and differential TSH hCG, quantitative, Protime-INR T4, free APTT Hemoglobin A1c US PELVIS-TRANSVAG IF INDICATED APTT Pt presents to discuss heavy cycles. Pt has complaints of heavy painful cycles, trouble with ADLs. Pt had tubal previously. Pt given labs and ultrasound orders to have obtained. Pt to be scheduled for endometrial ablation. Pt to return for embx/preop. Documented by Althea Suggs LPN on behalf of: Rashaun Amador DO documented in this encounter [facility] 11-27-2023 History of Present illness Narrative Reason [...] nursing note reviewed. Exam conducted with a side door man present. Vitals: There is no height or weight on file to calculate BMI. BP: 114/78 Patient's last menstrual period was 03/19/2023. Assessment/Plan Encounter Diagnoses Name Primary? Third trimester Hypothyroidism (acquired) (CMS/[facility]) Patient is doing well but has complaints [...] Rashaun Amador DO documented in this encounter [facility] 11-20-2023 History of Present illness Narrative Reason [...] nursing note reviewed. Exam conducted with a side door man present. Vitals: There is no height or [...] Rashaun Amador DO documented in this encounter [facility] 11-04-2023 Evaluation + Plan note Diagnostic Tests PendingUrine Culture 11/04/23 [facility] 11-04-2023 Note The following Patien t Education Materials have been given to the patient: [facility]04[facility]2023 Hospital Discharge instructions [facility] 11/04/2023 07:55:34 With:Rashaun AMADOR Address: [address] , [place] [address] Business (1) When:11/06/2023 Comments:Call for any problems.Appointment has already been scheduledCall physician if symptoms worsenPlease call if you need to rescheduleReturn for contractions closer, longer, harderReturn for decreased movementReturn if ruptured membranes or vaginal bleeding [facility] 08-23-2023 Evaluation + Plan note Diagnostic Tests PendingT3 Total 08/23/23 [facility] 08-18-2023 Note The following Patien t Education Materials have been given to the patient: [facility] 08-18-2023 Hospital Discharge instructions Patient Education 08/18/2023 08:14:46 Second Trimester of , Aogr-rc-Khzr Second Trimester of The second trimester of [...] Follow these instructions at home: Medicines Take ivfb-fze-luwtluk and prescription medicines only as told by [...] a counselor. Where to find more information [place] [employer]: americanpregnancy.org [place] [employer]: www.acog.org Office [...] provider. Document Revised: 03/09/2021 Document Reviewed: 01/13/2021 [employer] Patient Education 2022 [employer] [facility] 07-25-2023 Evaluation + Plan note Extrac [...] Diagnostic Tests Pending * Urine Culture 07/25/23 [facility]10-11-2023 Hospital Discharge instructions Patient Education 07/25/2023 [...] to keep your urine pale yellow. Take uhkf-rbl-ibzwyyq and prescription medicines only as told by [...] provider. Document Revised: 06/14/2021 Document Reviewed: 06/14/2021 [employer] Patient Education 2022 [employer] [facility] 07/25/2023 08:14:26 With:Luis Carlos Jung Address: [facility] MARIO AL[address]ERTO [address] [address] [facility] (1) When:07/28/2023 09:56:27 [facility]09-14-2023 Evaluation + Plan note Diagnostic Tests Pending * Urine Culture 06/28/23 [facility]09-14-2023 Hospital Discharge instructions Patient Education 06/28/2023 11:39:14 Urinary Tract Infection, Adult, Shqj-fg-Wxdw Urinary Tract Infection, Adult A urinary tract [...] Follow these instructions at home: Medicines Take yyew-fmg-zsdzldk and prescription medicines only as told by [...] provider. Document Revised: 05/13/2021 Document Reviewed: 05/13/2021 [employer] Patient Education 2022 [employer] 06/28/2023 11:39:14 Urinary Tract Infection, Adult, Yccv-cl-Tiah Urinary Tract Infection, Adult A urinary tract [...] Follow these instructions at home: Medicines Take chsp-ohn-ecblqjc and prescription medicines only as told by [...] provider. Document Revised: 05/13/2021 Document Reviewed: 05/13/2021 [employer] Patient Education 2022 [employer] Follow Up Care 06/28/2023 10:22:58 With:Fabiana MARION, Luis Carlos Byrd, ORS Address: [facility] [address]ERTO HE[address], [address] [place] [address]- When: Unknown [facility] 08-31-2023 Evaluation + Plan noteExtracted from: Title:ED Note Author:Jos Ugalde PA-C te:06/14/23 1. Abdominal pain (R10.9: Un specified abdominal pain) Orders: ABO/Rh Automated Diff Basic Metabolic Panel Beta hCG Quantitative CBC w/ Auto Diff eGFR Extra Blue Tube Extra SST Tube Hepatic Function Panel Lipase Level UA With Cult Reflex US 1st Trimester [facility]08-08-2023 Hospital Discharge instructions Patient Education 05/21/2023 23:23:44 Nonspecific Chest Pain, Adult, Ikvy-ly-Gtur Nonspecific Chest Pain Chest pain can be [...] Follow these instructions at home: Medicines Take qogu-dqf-feyvzxo and prescription medicines only as told by [...] heart-healthy diet. A diet and child nutrition director (dietitian) can help you to learn healthy [...] provider. Document Revised: 12/15/2021 Document Reviewed: 12/15/2021 [employer] Patient Education 2022 [employer] 05/21/2023 23:23:44 Nausea and Vomiting, Adult, Eyhb-hu-Btzy Nausea and Vomiting, Adult Nausea is feeling [...] fruit juice). ?Low-calorie sports drinks. Eat bland, qlgx-fm-nvequr foods in small amounts as you are able, such as: ?Bananas. ?Applesauce. ?Rice. ?Low-fat (lean) meats. ?[place]. ?Crackers. Avoid drinking fluids that have a lot of sugar or caffeine in them. This includes energy drinks, sports drinks, and soda. Avoid alcohol. Avoid spicy or fatty foods. General instructions Take xvrx-dnu-obizwmw and prescription medicines only as told by your doctor. Drink enough fluid to keep your pee (urine) pale yellow. Wash your hands often with soap and water for at least 20 seconds. If you cannot use soap and water, use hand style advisor. Make sure that everyone in your home [...] your doctor about eating and drinking. Take tlum-wim-vgonlho and prescription medicines only as told by your doctor. Contact your doctor if your symptoms get worse or you have new symptoms. Keep all follow-up visits. This information is not intended to replace advice given to you by your health care provider. Make sure you discuss any questions you have with your health care provider. Document Revised: 04/07/2022 Document Reviewed: 04/07/2022 [employer] Patient Education 2022 [employer]!. 05/21/2023 23:23:44 Abdominal Pain During , Ndkm-ys-Emuf Abdominal Pain During Belly (abdominal) pain is [...] keep your pee (urine) pale yellow. Take ofvv-shk-zgsbrdh and prescription medicines only as told by [...] provider. Document Revised: 06/14/2021 Document Reviewed: 06/14/2021 [employer]pper Patient Education 2022 [employer]!. Follow Up Care 05/21/2023 20:38:52 With:Luis Carlos Jung Address: [address] [id number] Business (1) When:05/24/2023 Comments:Take the Pepcid once daily until you have completed the course. You can use the Zofran every 6 hours as needed for nausea and vomiting. Please follow-up with your primary care doctor next 2 to 3 days. Please return to the ED for any new or worsening symptoms. [facility]08-07-2023 Evaluation + Plan noteExtracted from: Title:ED [...] day(s), # 15 cap(s), Refills(s) 0, Pharmacy: [facility], 162.6, cm, 05/21/23 20:50:00 EDT, Height/Length Dosing, 75.3, kg, 05/21/23 20:50:00 EDT, Weight Dosing famotidine, 20 mg = 2 mL, Soln-IV, IV Push, Once, Stop date 05/21/23 21:00:00 EDT, STAT, Start date 05/21/23 21:00:00 EDT, 05/21/23 21:00:00 EDT famotidine, 20 mg = 1 tab(s), Oral, Daily, # 14 tab(s), Refills(s) 0, [facility], 162.6, cm, 05/21/23 20:50:00 EDT, Height/Length Dosing, 75.3, kg, 05/21/23 20:50:00 EDT, Weight Dosing ondansetron, 4 mg = 2 mL, Injection, IV Push, Once, Stop date 05/21/23 21:00:00 EDT, STAT, Start date 05/21/23 21:00:00 EDT, 05/21/23 21:00:00 EDT ondansetron, 4 mg = 1 tab(s), Oral, q8hr, # 12 tab(s), Refills(s) 0, Pharmacy: [facility], 162.6, cm, 05/21/23 20:50:00 EDT, [...] UA With Cult Reflex US 1st Trimester [facility]07-17-2023 Evaluation + Plan note Diagnostic Tests Pending * PAP [id number] 04/30/23 * Urine Culture 04/30/23 [facility]07-17-2023 Evaluation + Plan note Diagnostic Tests Pending * RPR with Conf Rfx 04/30/23 * HIV Screen 4th Generation wRfx 04/30/23 * Rubella Antibody IgG 04/30/23 * Hepatitis B Surface Antigen 04/30/23 [facility]07-13-2023 Evaluation + Plan noteExtracted from: Title:ED Note Author:Jos Ugalde PA-C te:04/26/23 Abdominal pain (R10.9: Unspe cified abdominal pain) (Z34.90: Encounter for supervision of normal , unspecified, unspecified trimester) Orders: Beta hCG Quantitative Extra Lav Tube Extra SST Tube US 1st Trimester US Transvaginal [facility]07-13-2023 Hospital Discharge instructions Patient Education 04/26/2023 [...] to keep your urine pale yellow. Take twpn-qtw-beswqpa and prescription medicines only as told by [...] provider. Document Revised: 06/14/2021 Document Reviewed: 06/14/2021 [employer]pper Patient Education 2022 [employer]!. Follow Up Care 04/26/2023 08:52:22 With:Luis Carlos Jung Address: [facility] [address] [address] Business (1) When:04/29/2023 10:58:02 [facility]04-19-2023 Evaluation + Plan noteExtracted from: Title:ED [...] Head eGFR Oxygen Therapy PT & PTT [facility]04-19-2023 Hospital Discharge instructions Patient Education 01/31/2023 [...] Follow these instructions at home: Medicines Take stvy-kly-vakxbhu and prescription medicines only as told by your health care provider. Ask your health care provider if the medicine prescribed to you: ?Requires you to avoid driving or using heavy machinery. ?Can cause constipation. You may need to take these actions to prevent or treat constipation: ?Drink enough fluid to keep your urine pale yellow. ?Take njob-lmj-xezgwtl or prescription medicines. ?Eat foods that are [...] provider. Document Revised: 01/23/2020 Document Reviewed: 11/13/2019 V[employer]pper Patient Education 2022 [employer]!. Follow Up Care 01/31/2023 09:42:02 With:THANG MILLAN Address: [address] [place] [address]- Business (1) When:02/03/2023 11:57:07 Comments:Call the office [...] fever, or any new or worsening symptoms. [facility]12-09-2022 Hospital Discharge instructions Follow Up Care 09/22/2022 15:11:14 With:Luis Carlos Jung Address: [address] [address] Business (1) When:09/24/2022 20:30:00 Comments:Appointment has already been scheduledCall for any problems.Call for fever > 100.5 FCall for severe abdominal painCall physician for heavy vaginal bleedingCall physician if symptoms worsenReturn for contractions closer, longer, harderReturn for decreased movementReturn if ruptured membranes or vaginal bleedingCall at 7:30 pm Sunday to confirm induction at 8:30 [facility]12-06-2022 Hospital Discharge instructions Follow Up Care 09/19/2022 01:24:08 With:Luis Carlos Jung Address: [address] [place] [address]- Business (1) When:09/20/2022 Comments:Appointment has already been scheduledCall Dr if fever>100.5 F, heavy bleedingCall for any problems.Call for severe abdominal painCall physician for heavy vaginal bleedingCall physician if symptoms worsenReturn for contractions closer, longer, harderPlease call if you need to rescheduleReturn for decreased movementReturn if ruptured membranes or vaginal bleeding [facility]12-01-2022 Hospital Discharge instructions Patient Education 09/14/2022 11:56:10 Sinus Headache, Uuyt-yu-Myfp Sinus Headache A sinus headache happens when [...] on the bottle or box. Medicines Take eqmj-zcg-xjeagmp and prescription medicines only as told by [...] face, forehead, ears, or upper teeth. Take awyl-dkx-ltchrpv and prescription medicines only as told by your doctor. If told, apply a warm, moist washcloth to your face. This can help to lessen pain. This information is not intended to replace advice given to you by your health care provider. Make sure you discuss any questions you have with your health care provider. Document Released: 01/31/2012 Document Revised: 09/13/2018 Document Reviewed: 07/12/2018 [employer]pper Patient Education 2020 [employer] Follow Up Care 09/14/2022 09:13:06 With:Luis Carlos Jung Address: [address] [facility] [address] [address] Business (1) When:09/20/2022 Comments:Return if ruptured membranes or vaginal bleedingReturn for decreased movementReturn for contractions closer, longer, harderCall physician if symptoms worsenCall for severe abdominal painCall for fever > 100.5 F Drink 8-10 glasses of water/day Use SUDAFED, TYLENOL AND BENADRYL as previouslydirected by Dr Jung [facility]11-29-2022 Hospital Discharge instructions Patient Education 09/12/2022 20:39:28 Third Trimester of , Pcgn-jc-Fiag Third Trimester of The third trimester is from week 28 through week 40 (months 7 through 9). This trimester is when your unborn baby (fetus) is growing very fast. At the end of the ninth month, the unborn baby is about20 inches in length. It weighs about 6 10 pounds. Follow these instructions at home: Medicines Take mxvo-sup-bxmgtkw and prescription medicines only as told by [...] 12/26/2010 Document Revised: 01/22/2020 Document Reviewed: 11/06/2017 Videof[employer]pper Patient Education 2020 [employer]!. Follow Up Care 09/12/2022 19:44:10 With:Luis Carlos Montesinosten Address: [facility] [address] [address] [facility] (1) When:09/20/2022 Comments:Appointment has already been scheduledCall Dr if fever>100.5 F, heavy bleedingCall for any problems.Call for severe abdominal painCall physician for heavy vaginal bleedingCall physician if symptoms worsenPlease call if you need to rescheduleReturn for contractions closer, longer, harderReturn for decreased movementReturn if ruptured membranes or vaginal bleeding [facility]11-25-2022 Hospital Discharge instructions Follow Up Care 09/08/2022 08:14:23 With:Luis Carlos Jung Address: [address] [facility] [address] [place] [address] [facility] (1) When:09/11/2022 Comments:Return for contractions closer, longer, harderReturn for decreased movementReturn if rupturedmembranes or vaginal bleeding [facility]11-23-2022 Hospital Discharge instructions Patient Education 09/05/2022 [...] the coronavirus come from? In September 2019, [place] told the World Health Organization (WHO) of several cases of lung disease (human respiratory illness). These cases were linked to an open seafood and livestock market in the [facility]. The link to the seafood and [...] and virus naming World Health Organization (WHO): www.who.int/emergencies/diseases/uvnkh-paqkfhktpaw-6842/technical-g uidance/nmkljm-bui-xpfycghuial-disease-(covid-2019)-dhy-oiw-xszql-eryx-jcnhwe-no Who is at risk for complications from [...] relieve his or her symptoms by using okoe-swo-kqsipkm medicines that treat sneezing, coughing, and runny [...] water are not available, use alcohol-based hand style advisor. Avoid touching your face, mouth, nose, or [...] Prevention (CDC): www.cdc.gov/coronavirus/2019-ncov/travelers/index.html World Health Organization (WHO): www.who.int/emergencies/diseases/lsgnf-uptvyhrltei-5453/travel-advice Know the risks and take action to [...] water are not available, use alcohol-based hand style advisor. Cough or sneeze into a tissue, sleeve, [...] in hot, soapy water or use a ceramic maker demonstrator. Air-dry your dishes. Wash laundry in hot [...] Health Organization (WHO) Information and news updates: www.who.int/emergencies/diseases/gqgpj-dvmnvcjemui-4824 Coronavirus health topic: www.who.int/health-topics/coronavirus Questions and answers on COVID-19: www.who.int/news-room/q-a-detail/s-i-bsvqabehunbjx Global tracker: who.Tiantian. com.[employer] [place] [employer] (AAP) Information for families: www.healthychildren.org/Slovenian/health-issues/conditions/chest-lungs/Pages /6950-Iniib-Aoqivvbfsqg.aspx The coronavirus situation is changing rapidly. Check [...] 01/27/2020 Document Revised: 01/27/2020 Document Reviewed: 01/27/2020 V[employer]pper Patient Education 2019 [employer]!. 09/05/2022 22:13:40 COVID-19 COVID-19 COVID-19 is a [...] managed at home with rest, fluids, and tocy-yuu-ibmseuk medicines. Treatment for a serious infection usually [...] are safe for you. General instructions Take vcbn-ypg-uftdnkw and prescription medicines only as told by [...] areas and travel restrictions, check the [facility] travel website: wwwnc.cdc.gov/travel/notices If you live in, or must travel to, an area where COVID-19 is a risk, take precautions to avoid infection. ?Stay away from people who are sick. ?Wash your hands often with soap and water for 20 seconds. If soap and water are not available, usean alcohol-based hand style advisor. ?Avoid touching your mouth, face, eyes, or [...] water are not available, use alcohol-based hand style advisor. Stay away from other members of your [...] 11/06/2019 Document Revised: 02/26/2020 Document Reviewed: 11/06/2019 Vide[employer]pper Patient Education 2019 [employer]!. Follow Up Care 09/05/2022 20:08:29 With:Luis Carlos Jung Address: [address], [facility] [address] [place] [address]- Business (1) When:09/08/2022 21:42:10 Comments:Use the albuterol inhaler 2 puffs every 4 hours for the next 2 to 3 days, you can use the Zofran every 6 hours as needed for nausea and vomiting. Please follow-up with your primary care doctor in thenext 2 to 3 days. Please return to the ED for any new or worsening symptoms. With:THANG MILLAN Address: [address] [place] [address] Business (1) When:09/08/2022 21:42:06 [facility]11-22-2022 Evaluation + Plan noteExtracted from: Title:ED [...] 12 tab(s), Refills(s) 0, Pharmacy: [facility], 163, cm, 09/05/22 20:14:00 EST, [...] Therapy PT & PTT Rapid COVID Antigen ([facility]) Saline Lock Insert Troponin 0 Hr. XR Chest Single View Future Appointments Appointment Date:09/06/2022 07:00:00 AM Scheduled Provider: [facility] Type:Outpatient COVID Testing [facility]11-21-2022 Evaluation + Plan note Diagnostic Tests Pending * Group B Streptococcus colonization by PCR 09/04/22 [facility]11-17-2022 Hospital Discharge instructions Patient Education 08/31/2022 00:56:47 Third Trimester of , Eelp-ey-Blhd Third Trimester of The third trimester is from week 28 through week 40 (months 7 through 9). This trimester is when your unborn baby (fetus) is growing very fast. At the end of the ninth month, the unborn baby is about20 inches in length. It weighs about 6 10 pounds. Follow these instructions at home: Medicines Take zymj-pbs-harcrwb and prescription medicines only as told by [...] 12/26/2010 Document Revised: 01/22/2020 Document Reviewed: 11/06/2017 Vide[employer]pper Patient Education 2020 [employer]!. Follow Up Care 08/30/2022 21:31:53 With:Luis Carlos Jung Address: [address] [address]- Business (1) When:09/04/2022 Comments:Call for any problems.Call for severe abdominal painCall physician for heavy vaginal bleedingReturnfor contractions closer, longer, harderReturn for decreased movementReturn if ruptured membranes or vaginal bleeding [facility]11-08-2022 Hospital Discharge instructions Follow Up Care 08/22/2022 14:58:59 With:Dr. 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 [facility]11-04-2022 Evaluation + Plan note Diagnostic Tests Pending * Urine Culture 08/18/22 [facility]11-04-2022 Hospital Discharge instructions Follow Up Care 08/18/2022 03:47:49 With:Luis Carlos Jung Address: [address] [address] [facility] (1) When:08/21/2022 08:45:00 Comments:Appointment has already been scheduled, please keep scheduled apptCall for any problems.Call physician if symptoms worsen [facility]10-30-2022 Hospital Discharge instructions Patient Education 08/13/2022 [...] 10/31/2007 Document Revised: 10/21/2019 Document Reviewed: 11/09/2016 Vide[employer]pper Patient Education 2020 [employer] 08/13/2022 19:55:11 Monitoring Overview Monitoring Overview [...] 09/21/2003 Document Revised: 06/25/2018 Document Reviewed: 04/30/2017 [employer]ide[employer]pper Patient Education [employer] Follow Up Care 08/13/2022 17:29:42 With:Luis Carlos Jung Address: [address] [address] [facility] (1) When:1 to 2 days Comments:Call for any problems.Return for contractions closer, longer, harderReturn for decreased movementReturn if ruptured membranes or vaginal bleeding [facility]10-13-2022 Hospital Discharge instructions Follow Up Care 07/27/2022 01:12:54 With:Dr. Jung [phone] Address:Unknown When:09/24/2022 20:30:00 Comments:Call for any problems.Return if ruptured membranes or vaginal bleedingReturn for decreased movementcontractions every 5 minutes lasting 45 seconds for an hourCall Sunday night at 7:30 PM to assure bed availability for induction [facility]10-12-2022 Hospital Discharge instructions Patient Education 07/26/2022 [...] Follow these instructions at home: Medicines Take epqu-tmz-fnvsmhz and prescription medicines only as told by [...] as fried or sweet foods. ?Take an hidv-gmt-fsgysyi or prescription medicine for constipation. If you [...] 12/28/2009 Document Revised: 05/28/2019 Document Reviewed: 11/11/2018 [employer]pper Patient Education [employer] Follow Up Care 07/26/2022 07:56:25 With:Luis Carlos Jung Address: [address] [facility] [address], [place] [id number] Business (1) When:08/07/2022 07:45:00 [facility]10-03-2022 Evaluation + Plan noteExtracted from: Title:ED Note Author:Hi Carmona PA-C te:07/17/22 UTI (urinary tract infection ) (N39.0: Urinary tract infection, site not specified) Orders: cephalexin, 500 mg = 1 cap(s), Oral, q12hr, X 5 day(s), # 10 cap(s), Refills(s) 0, Pharmacy: [facility], 162.5, cm, 07/17/22 9:09:00 EDT, Height/Length Dosing, 80, kg, 07/17/22 9:09:00 EDT, Weight Dosing Patient Specific Meds, Each, Misc, Once, Stop date 07/17/22 9:10:34 EDT, Physician Stop, 07/17/22 9:10:34 EDT Influenza A&B Ag Rapid COVID Antigen ([facility]) UA With Cult Reflex [facility]10-03-2022 Hospital Discharge instructions Patient Education 07/17/2022 [...] 01/26/2012 Document Revised: 01/23/2020 Document Reviewed: 09/04/2019 Vide[employer]pper Patient Education 2020 [employer]!. 07/17/2022 09:55:44 Urinary Tract Infection, Adult Urinary [...] Treatment for this condition includes: Antibiotic medicine. Lbwe-szx-fqcyeps medicines to treat discomfort. Drinking enough water [...] Follow these instructions at home: Medicines Take cazg-asv-zqfbnhh and prescription medicines only as told by [...] 07/11/2006 Document Revised: 09/18/2019 Document Reviewed: 04/10/2019 Vide[employer]pper Patient Education 2020 [employer]!. Follow Up Care 07/17/2022 09:04:38 With:Luis Carlos Jung Address: [address] [address] Business (1) When:07/20/2022 09:46:49 With:THANG MILLAN Address: [address] [place] [address] [facility] (1) When:07/20/2022 09:46:41 Comments:Follow-up with your primary care provider in 3 to 5 days. If symptoms worsen, do not improve, or new symptoms arise please report back to emergency department for further evaluation. [facility]09-14-2022 Evaluation + Plan note Diagnostic Tests Pending * RPR with Conf Rfx 06/28/22 [facility]09-12-2022 Hospital Discharge instructions Patient Education 06/26/2022 [...] 09/21/2003 Document Revised: 06/25/2018 Document Reviewed: 04/30/2017 [employer]ide[employer]pper Patient Education 2020 [employer]!. 06/26/2022 21:35:59 Form - Movement Counts Movement [...] 10/31/2007 Document Revised: 10/21/2019 Document Reviewed: 11/09/2016 Vide[employer]pper Patient Education 2020 [employer]!. Follow Up Care 06/26/2022 20:41:33 With:Luis Carlos Jung Address: [address] [address] Business (1) When:07/03/2022 07:45:00 Comments:Call for any problems.Please call if you need to rescheduleReturn for decreased movement [facility]09-05-2022 Hospital Discharge instructions Follow Up Care 06/18/2022 23:33:38 With:Luis Carlos Jung Address: [address] [address] Business (1) When:5 to 7 days Comments:Appointment has already been scheduledCall for any problems.Call for fever > 100.5 FCall for severe abdominal painCall physician for heavy vaginal bleedingPlease call if you need to rescheduleReturn for contractions closer, longer, harderReturn for decreased movementReturn if ruptured membranes or vaginal bleeding [facility]07-18-2022 Hospital Discharge instructions Follow Up Care 05/01/2022 17:08:54 With:Luis Carlos Jung Address: [address], [address] [address] Business (1) When:05/09/2022 Comments:Return if ruptured membranes or vaginal bleedingReturn for contractions closer, longer, harderCall physician if symptoms worsenCall physician for heavy vaginal bleedingCall for severe abdominal painCall for fever > 100.5 FCall for any problems. drink more fluids including gatorade, take milk of magnesia twice /day until yo u have bowel movements, benefiber daily [facility]06-19-2022 Evaluation + Plan note Diagnostic Tests Pending * Urine Culture 04/02/22 [facility]06-19-2022 Hospital Discharge instructions Patient Education 04/02/2022 10:22:48 Second Trimester of , Mwkc-hd-Vsoi Second Trimester of The second trimester is [...] Follow these instructions at home: Medicines Take pftj-osz-bcvkynk and prescription medicines only as told by [...] 12/26/2010 Document Revised: 01/23/2020 Document Reviewed: 11/06/2017 V[employer]pper Patient Education 2020 [employer]!. 04/02/2022 10:22:48 Vaginal Bleeding During , Second [...] says that this is safe. Medicines Take macm-omz-ljtekhj and prescription medicines only as told by [...] Document Reviewed: 01/03/2018 Elsevier Patient Education 2020 [employer] Follow Up Care 04/02/2022 06:00:26 With:Dr. Jung [phone] Address:Unknown When:2 to 3 days Comments:Call for any problems.Call physician if symptoms worsen [facility]06-09-2022 Hospital Discharge instructions Patient Education 03/23/2022 20:39:21 Second Trimester of , Omjj-rv-Tlyp Second Trimester of The second trimester is [...] Follow these instructions at home: Medicines Take mmlu-ntm-notxqmg and prescription medicines only as told by [...] 12/26/2010 Document Revised: 01/23/2020 Document Reviewed: 11/06/2017 [employer]pper Patient Education 2020 [employer] 03/23/2022 20:39:21 First Trimester of , Dpso-ix-Ajbl First Trimester of The first trimester of [...] Follow these instructions at home: Medicines Take bexq-iyp-ijqdaxh and prescription medicines only as told by [...] Move your legs often if you must tanner rotary drum continuous process one placefor a long time. Avoid heavy [...] grounds. You are around people who have Albanian measles, fifth disease, or chickenpox. You have [...] 03/19/2009 Document Revised: 01/22/2020 Document Reviewed: 10/09/2017 [employer]pper Patient Education 2020 [employer] 03/23/2022 20:39:21 Abdominal Pain During , Qrkc-kx-Blcr Abdominal Pain During Belly (abdominal) pain is [...] keep your pee (urine) pale yellow. Take yddv-nio-nflxvrp and prescription medicines only as told by [...] 09/19/2010 Document Revised: 01/19/2020 Document Reviewed: 01/03/2018 V[employer]pper Patient Education 2020 [employer] Follow Up Care 03/23/2022 19:35:57 With:Luis Carlos Jung Address: [address] [place] [address] [address] Business (1) When:03/27/2022 10:00:00 Comments:Call for any problems. Call [facility] first, ask to speak directly to Dr. Jung before heading to hospital unless an emergency. Call for severe abdominal pain or worsening pain.Return if vaginal bleedingor ruptured membranes.Wear belly band as much as possible, especially as your belly grows in . [facility]05-04-2022 Evaluation + Plan note Diagnostic Tests Pending * RPR with Conf Rfx 02/15/22 * HIV Screen 4th Generation wRfx 02/15/22 * Rubella Antibody IgG 02/15/22 * Hepatitis B Surface Antigen 02/15/22 * Urine Culture 02/15/22 [facility]06-18-2021 NoteHNO ID: [id number] Author: Bert Negrete, DO Service: ? Author Type: Fellow Type: Progress Notes Filed: 04/01/2021 9:15 AM Note Text: [facility] [address] [place], [place] [address] Martha Webb (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 [facility]06-10-2021 NoteHNO ID: [id number] Author: Karen Vinson RT(R) Service: Nuclear Medicine Author Type: Grease Rack Worker Type: Progress Notes Filed: 03/24/2021 9:39 [...] 0740 PATIENT DISCHARGED TO: Ambulatory patient, left [place] department area. A Diagnostic radioactive procedure has taken place, with no further precautions necessary other than routine body substance precautions. More information regarding radiation safety can be found using this link: [email or web address] SIGNATURE: RT Oliva(R) PATIENT NAME: Susan Bro DATE: March 24, 2021 TIME: 9:38 AM PAGER/CONTACT #:[facility]05-27-2021 NoteHNO ID: [id number] Author: Martha Webb MD Service: ? Author Type: Physician Type: Progress Notes Filed: 03/10/2021 12:03 PM Note Text: This note was created using PitchBook Datariter. Subjective Susan Bro is a 25 year [...] biliary ductal dilatation is (more content not included)...[facility]* Diagnosis Third trimester state, incidental documented in this encounter [facility] HealthcareEvaluation note* Diagnosis Third trimester state, incidental Hypothyroidism (acquired) (CMS/[facility]) Unspecified hypothyroidism documented in this encounter [facility] HealthcareEvaluation noteNo assessment information available[facility] Work Phone: Evaluation note* Diagnosis Menorrhagia with regular cycle [facility] N[facility] No data available for this [facility] No data available for this section [facility] No data available for this section [facility] Summary Purpose Family History Relationship Condition Age at Onset Recorded Date/T ping Not Specified Goiter Unknown grandparent Heart disease Unknown Not Specified Diabetes mellitus Unknown Hypertension Unknown Advance Directives Documents on File Type Date Recorded Patient Jewelry Cutter Expl anation Advance Directives and Livin g Will 10/14/2020 10:22 AM Documents on File Type Date Recorded Patient Jewelry Cutter Expl anation ACP-Advance Directive ACP-Power of Salesperson Household Appliances Advance Directive Response Recorded Date/ Time Advance Directives No July 24, 2019 9:00am Discharge Instructions * Discharge Instr - Care Coordination* Andra Schmid RN - 10/14/2020 11:43 AM EST [facility] Trust the experts at [facility] to meet your healthcare needs. When you make an appointment with [facility], it's the start of a long-lasting partnership that's committed to your health. We provide the very best prevention, wellness and illness care, and give you access to the advanced medical services and expert treatment available at [facility]. Please note that the provider listed below is accepting patients in your area. Carpenter: [address] [place] [address] MD Debby Lala MD Christina Spring, CNP For the most up-to-date information on a care provider in your community, use the Find a Doctor tool on edupristine [facility] * Attachments The following attachments cannot be sent through Care Everywhere. * Vertigo (Slovenian) * Arik Maneuver: Vertigo: Exercises (Slovenian) documented in this encounter* Instructions* Bakari Valente [...] be sent through Care Everywhere. * Bruises (Slovenian) * Contusion (Slovenian) documented in this encounter Assessments Diagnosis Vertigo- Primary Dizziness and giddiness Diagnosis Contusion of right knee, initial encounter Contusion of multiple sites of right shoulder and upper arm, initial encounter Additional Source Comments INFORMATION SOURCE (unrecogn ized section and content) DATE CREATED AUTHOR 04/09/2018 [facility] DATE CREATED AUTHOR AUTHOR'S ORGANIZ ATION 08/10/2020 Verena Toscano [facility] DATE CREATED AUTHOR AUTHOR'S ORGANIZ ATION 09/07/2020 [facility] DATE CREATED AUTHOR AUTHOR'S ORGANIZ ATION 10/20/2020 [facility] DATE CREATED AUTHOR AUTHOR'S ORGANIZ ATION 03/18/2021 [facility] DATE CREATED AUTHOR AUTHOR'S ORGANIZ ATION 11/15/2021 [facility] DATE CREATED AUTHOR AUTHOR'S ORGANIZ ATION 01/23/2024 [facility] DATE CREATED AUTHOR AUTHOR'S ORGANIZ ATION 02/14/2024 [facility] DATE CREATED AUTHOR AUTHOR'S ORGANIZ ATION 03/13/2024 [facility] Reason for Visit (unrecogniz ed section and content) Reason Comments Dizziness Reason Comments Knee Pain right knee pain, 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 denies hitting head or any LOC Shoulder Pain rt shoulder, fell ov er dust guzman onto her right side. Reason Comments Routine Visit Reason Comments Menstrual Problem Heavy cycles Susan Griffiths PA-C - 10/14/2020 10:44 AM Amena Cantrell RN - 10/14/2020 10:32 AM EST ED Notes (unrecognized secti on and content) [facility] ED Note: NAME: Susan Bro 24 y.o. CSN: [id number] PCP: Physician No History: Chief Complaint: Dizziness [...] file Gets together: Not on file Attends pentecostal service: Not on file Active member of [...] does have reproducible vertigo with position changes. Ounsrw-kr-uykv maneuvers are intact without dysmetria. There is negative Romberg sign. There was no ataxia on ambulation. Psychiatric: Mood and Affect: Mood normal. Behavior: Behavior normal. Thought Content: Thought content normal. Laboratory & Radiological Imaging (if done): Labs Reviewed URINALYSIS - Abnormal; Notable for the following components: Result Value Clarity, Urine Cloudy (*) Specific [place] 1.028 (*) pH, Urine 8.0 (*) Protein, [...] at the following links: For Healthcare Providers: https://www.fda.gov/media/646686/download For Patients: https://www.fda.gov/media/949258/download HCG URINE, QUALITATIVE - Normal CBC AND DIFFERENTIAL Narrative: The following orders were created for panel order CBC w/ Diff. Procedure Abnormality Status --------- ------ CBC Auto Differential[[id number]] Abnormal Final result Please view results for these tests on the individual orders. HCG URINE, QUALITATIVE URINALYSIS CT Head Or Brain Without Contrast Final Result 1. No acute intracranial hemorrhage, focal edema or mass effect. Workstation ID: [id number] EKG: Normal sinus rhythm with sinus arrhythmia RATE: 74 AXIS: Normal axis INTERVALS: WI interval of 178 ms, QRS duration of [...] Antivert. She is referred to follow-up with [facility] or [place] that she does not currently have a [...] needed for dizziness . Susan Griffiths Physicians Pharmacist Intern [facility] Emergency Department Susan Griffiths PA-C 10/14/20 1209 Special isolation precautions are in place with signage outside this patient's room. This rn intensive care unit performs hand hygiene and enters the patient [...] or prosecute any alcohol or drug abuse patient.[facility] Care Team (unrecognized sect ion and content) Team Status: Active Member Role Status Dates [facility] Active Team Status: Inactive Member Role Status Dates [facility] Active Start: February 08, 2024 End: February 08, 2024 Rashaun Amador Attending Provider Active Start: 2023 End: February 08, 2024 Goals (unrecognized section and content) Goals may be documented in a n alternate section FOR RECORDS PERTAINING TO PATIENTS WHO ARE [...] BE BASED ON THE PRIMARY CLINICAL RECORDS. [facility], [facility]. provides no warranty or guarantee of the accuracy or completeness of information in this document.
[2024-10-02 08:15] LABS: Basophils Absolute Auto 0.1 10^3/uL (0.0-0.1); Basophils Percent Auto 1.4 % (0.2-2.0); Eosinophils Absolute Auto 0.1 10^3/uL (0.0-0.7); Eosinophils Percent Auto 2.1 % (0.9-7.0); Hemoglobin 13.6 g/dL (12.0-16.0); Immature Granulocytes Abs Auto 0.02 10^3/uL (0.00-0.03); Immature Granulocytes Pct Auto 0.3 % (0.0-0.5); Lymphocytes Absolute Auto 1.5 10^3/uL (1.2-3.8); Lymphocytes Percent Auto 23.1 % (20.5-60.0); Mean Corpuscular Hemoglobin 30.4 pg (26.7-34.0); Mean Corpuscular Volume 89.5 fL (81.0-99.0); Mean Platelet Volume 9.3 fL (9.5-13.5); Monocytes Absolute Auto 0.4 10^3/uL (0.3-0.8); Monocytes Percent Auto 6.7 % (1.7-12.0); Neutrophils Absolute Auto 4.4 10^3/uL (1.4-6.5); Neutrophils Percent Auto 66.4 % (43.0-75.0); Platelet Count 291 10^3/uL (150-450); Red Blood Count 4.47 10^6/uL (4.20-5.40); Red Cell Distribution Width 12.9 % (11.0-15.0); White Blood Count 6.6 10^3/uL (4.0-11.0)
[2024-10-02 08:36] LABS: Estimated Average Glucose 97 mg/dL
[2024-10-02 08:38] LABS: INR 0.94; Partial Thromboplastin Time 24.6 sec (22.3-36.2)
[2024-10-02 08:54] LABS: Free T4 0.72 ng/dL (0.76-1.46)
[2024-10-02 08:59] LABS: Thyroid Stimulating Hormone 9.205 uIU/mL (0.358-3.740)
[2024-10-02 09:05] LABS: HCG Quantitative <1 mIU/mL
== END 2024-10-02 07:18 | disposition home or self-care (01) ==
LOC: US 07:17
PROVIDERS: Visit Provider Obstetrics & Gynecology
DX: N92.0 Excessive and frequent menstruation with regular cycle (principal)
CPT/HCPCS: 36415; 76830; 76856; 83036; 84439; 84443; 84702; 85025; 85610; 85730

== ENCOUNTER 2024-11-06 15:56 | Outpatient (REF) | payer OTHER, SELFPAY | END 2024-11-06 15:57 | disposition home or self-care (01) | LOC: LAB 15:56 | PROVIDERS: Visit Provider Obstetrics & Gynecology | DX: N92.0 Excessive and frequent menstruation with regular cycle (principal) | CPT/HCPCS: 88305 ==

== ENCOUNTER 2024-11-12 11:01 | Outpatient (OUT) | payer OTHER, SELFPAY ==
--- OUTSIDE RECORDS SUMMARY | 2024-11-12 11:15 | XMS_ITS | CCD ---
Author Organization [facility] Care Team Providers Care Technical Research Scientist Name Role Phone NKECHI TORRES Unavailable Unavaila BAKARI Liriano Attending Unavailable THANG MILLAN Primary Care Unavailable No, Physician Primary Care Provider Unavailerum BRODY, PHYSICIAN Primary Care Unavailable REGINE CHOW Admitting Unavailable REGINE CHOW Attending Unavailable Thang Millan Primary Care Provider [phone] Unavailable Primary Care Provider UnavailTHANG Mauro Primary Care Physician Luis Carlos Jung Primary Care Physician Rashaun AMADRO Primary Care Physician NONE, XXXX Primary Care Physician [employer], GENERIC Primary Care Physician Unavailab le Unavailable Primary Care Provider [facility] Primary Care Provider Rashaun Amador Attending Provider [phone] [facility] Primary Care Unavailable Rashaun Amador Attending Unavailable Rashaun Amador Admitting Unavailable ZORAN MYRICK Admitting Unavailable ZORAN MYRICK Attending Unavailable Luis Carlos Jung Admitting Unavailable Luis Carlos Jung Attending Unavailable Luis Carlos Jung Admitting Unavailable Luis Carlos Jung Attending Unavailable Gopi Rodriguez Attending Unavailable Roverto Vaz V. Attending UnavailKristian Garvin Attending Unavailable Laura Noel Attending Unavailable Kristian Guillermo Attending Unavailable DO Julia Haywood Attending Unavaila Rashaun Bolton Admitting Unavailable Rashaun AMADOR Attending Unavailable Roverto Vaz V. Admitting UnavailRoverto Zepeda V. Attending UnavailZORAN Fuentes Admitting Unavailable ZORAN MYRICK Attending Unavailable Luis Carlos Jung Admitting Unavailable Luis Carlos Jung Attending Unavailable ELEN, ZORAN Attending Unavailable ELEN, ZORAN Admitting Unavailable PERRY, RASHAUN Attending Unavailable PERRY, RASHAUN Attending Unavailable PERRY, RASHAUN Attending Unavailable PERRY, RASHAUN Attending Unavailable PERRY, RASHAUN Attending Unavailable Allergies Allergy Classification Reported Allergen(s) Allergy Type Date of Onset Reaction(s) Facility (20 sources) amoxicillin; Translations: [AMOXICILLIN] Drug Allergy 7 [facility] Repository (20 sources) penicillin; Translations: [PENICILLIN] Drug Allergy 7 [facility], [facility] Repository (15 sources) Penicillins; Translations: [PENICILLINS] Propensity to adverse reactions to drug 0 [place], [place] (10 sources) Penicillin G procaine Allergy to substance 3 [facility] (2 sources) Penicillin; Translations: [penicillin G] Drug Allergy 1 [facility] Medications Current Medications Medication Drug Class(es) Dates [...] day(s), # 15 cap(s), Refills(s) 0, Pharmacy: [facility], 162.6, cm, 05/21/23 20:50:00 EDT, Height/Length Dosing, 75.3, kg, 05/21/23 20:50:00 EDT, Weight Dosing Start Date: 05/21/23 Stop Date: 05/26/23 Status: Ordered Start: 08-18-2022 End: 08-25-2022 take 1 capsule by mouth four times daily Keflex 500 mg Cap 500 mg = 1 cap(s), Oral, QID, X 7 day(s), # 28 cap(s), Refills(s) 0, Pharmacy: [facility], 162.5, cm, 08/18/22 4:15:00 EDT, Height/Length Dosing, 80, kg, 08/18/22 4:15:00 EDT, Weight Dosing Start Date: 08/18/22 Stop Date: 08/25/22 Status: Ordered Start: 07-17-2022 End: 07-22-2022 take 1 capsule by mouth every twelve hours Keflex 500 mg Cap 500 mg = 1 cap(s), Oral, q12hr, X 5 day(s), # 10 cap(s), Refills(s) 0, Pharmacy: [facility], 162.5, cm, 07/17/22 9:09:00 EDT, Height/Length Dosing, 80, kg, 07/17/22 9:09:00 EDT, Weight Dosing Start Date: 07/17/22 Stop Date: 07/22/22 Status: Ordered Start: 04-02-2022 End: 04-09-2022 take 1 capsule by mouth four times daily Keflex 500 mg Cap 500 mg = 1 cap(s), Oral, QID, X 7 day(s), # 28 cap(s), Refills(s) 0, Pharmacy: [facility], 160, cm, 04/02/22 6:28:00 EDT, Height/Length Dosing, 69.1, kg, 04/02/22 6:35:00 EDT, Weight Dosing Start Date: 04/02/22 Stop Date: 04/09/22 Status: Ordered cimetidine 300 mg oral tablet (3 sources) Histamine-2 Receptor Antagonist Start: 04-02-2022 cimetidine 300 mg oral tablet Refills(s) 0 Start Date: 04/02/22 Status: Ordered citalopram 20 mg oral tablet (10 sources) Serotonin Reuptake Inhibitor Start: 11-15-2023 End: 12-16-2024 take 1 tablet by mouth once daily citalopram (CeleXA) 20 MG tablet Indications: Anxiety, generalized (CMS/HCC) Take 1 tablet (20 mg) by mouth Daily 360 tablet 12/17/2023 12/16/2024 Active Colace (3 sources) Start: 08-18-2023 Colace Refills(s) 0 Start Date: 08/18/23 Status: Ordered docusate sodium 50 mg / sennosides, prison 8.6 mg oral tablet (6 sources) senna-docusate (Colace 2-IN-1) 8.6-50 MG tablet famotidine 20 mg oral tablet (6 sources) Histamine-2 Receptor Antagonist Start: 05-21-2023 take 1 tablet by mouth once daily Pepcid 20 mg Tab 20 mg = 1 tab(s), Oral, Daily, # 14 tab(s), Refills(s) 0, Pharmacy: [facility], 162.6, cm, 05/21/23 20:50:00 EDT, Height/Length Dosing, 75.3, kg, 05/21/23 20:50:00 EDT, Weight Dosing Start Date: 05/21/23 Status: Ordered ibuprofen 600 mg oral tablet (11 sources) Nonsteroidal Anti-inflammatory Drug Start: 09-27-2022 take 1 tablet by mouth every six hours ibuprofen 600 mg Tab 600 mg = 1 tab(s), Oral, q6hr, # 15 tab(s), Refills(s) 0, Pharmacy: [facility], 162.5, cm, 09/24/22 21:51:00 [...] dizziness, # 15 tab(s), Refills(s) 0, Pharmacy: [facility], 163, cm, 11/30/21 7:18:00 [...] 10-14-2020 meclizine (ANT IVERT) tablet 25 mg megestrol acetate 20 mg oral tablet (1 source) Progestin Start: 11-06-2024 End: 12-06-2024 take 1 tablet by mouth once daily, then take 1 tablet by mouth twice daily, then take 1 tablet by mouth once daily megestrol (Megace) 20 MG tablet Indications: Menorrhagia with regular cycle Take 1 tablet (20 mg total) by mouth Daily. Take 1 tablet 2 times daily for 3 days then take 1 tablet daily for 1 month (36 tablets total) 36 tablet 11/06/2024 12/06/2024 Active metoclopramide 5 mg oral tablet (2 sources) [...] , # 12 tab(s), Refills(s) 0, Pharmacy: [facility], 163, cm, 09/05/22 [...] day(s), # 6 tab(s), Refills(s) 0, Pharmacy: [facility], 163, cm, 06/28/23 10:39:00 EDT, Height/Length Dosing, 74.8, kg, 06/28/23 10:39:00 EDT, Weight Dosing Start Date: 06/28/23 Stop Date: 06/30/23 Status: Ordered Multivitamins (20 sources) Start: 03-03-2022 take 1 tablet by mouth once daily Multivitamins 1 tab(s), Oral, Daily, Refill(s) 0 Start Date: 03/03/22 Status: Ordered MV-Min-Fe Fum-FA-DHA ( 1 PO) (10 sources) MV-Min- Fe Fum-FA-DHA ( 1 PO) [...] q8hr, # 12 tab(s), Refills(s) 0, Pharmacy: [facility], 162.6, cm, 05/21/23 [...] Problem Date Documented Date Episodic/Chronic Abdominal pain (5 sources) Abdominal pain; Translations: [Unspecified abdominal pain] [...] sources) Bacterial meningitis 05-02-2016 Episodic Menstrual disorders (3 sources) Menorrhagia; Translations: [Excessive and frequent menstruation [...] 08-18-2022 07-31-2022 Episodic Other female genital disorders (2 sources) Abnormal uterine bleeding; Translations: [Abnormal uterine and [...] sources) Onset: 03-23-2022 Resolved: 09-25-2022 03-23-2022 Unclassified (10 sources) OB Reminders Onset: 07-17-2023 07-17-2023 Urinary [...] Name Value Interpretation Reference Range Facility ALL CBC WITH AUTO DIFFon BASOPHILS ABSOLUTE AUTO 0.1 [facility] Basophils/100 WBC (Bld) 1.4 % 0.2 - 2.0 % [facility] Eosinophils/100 WBC (Bld) 2.1 % 0.9 - 7.0 % [facility] Erythrocyte distribution width (RBC) [Ratio] 12.9 % 11.0 - 15.0 % [facility] Hematocrit (Bld) [Volume fraction] 40 % 36.0 - 48.0 % [facility] Hemoglobin (Bld) [Mass/Vol] 13.6 g/dL 12.0 - 16.0 g/dL [facility] IMMATURE GRANULOCYTES ABS AUTO 0.02 [facility] Immature granulocytes/100 WBC (Bld) 0.3 % 0.0 - 0.5 % [facility] Interpretation and review of laboratory results Abnormal [facility] LYMPHOCYTES ABSOLUTE AUTO 1.5 [facility] Lymphocytes/100 WBC (Bld) 23.1 % 20.5 - 60.0 % [facility] MCH (RBC) [Entitic mass] 30.4 pg 26.7 - 34.0 pg [facility] MCHC (RBC) [Mass/Vol] 34 g/dL 29.9 - 35.2 g/dL [facility] MCV (RBC) [Entitic vol] 89.5 fL 81.0 - 99.0 fL [facility] MONOCYTES ABSOLUTE AUTO 0.4 [facility] Monocytes/100 WBC (Bld) 6.7 % 1.7 - 12.0 % [facility] NEUTROPHILS ABSOLUTE AUTO 4.4 [facility] Neutrophils/100 WBC (Bld) 66.4 % 43.0 - 75.0 % [facility] Platelet mean volume (Bld) [Entitic vol] 9.3 fL Low 9.5 - 13.5 fL [facility] TBH EO # 0.1 [facility] TB PLT 291 [facility] RBC 4.47 [facility] WBC 6.6 [facility] Physician Orderon 03-12-2024 Physician Order [id number]#1.00TIFF Normal [facility] T4 & TSHon 03-12-2024 TSH Qn 4.44 m[IU]/L Normal 0.34-5.60 [facility] Comment on above: Performed By: #### 1 [id number] #### [facility] [address] [place] [address] T4 [Mass/Vol] 5.7 microgram/dL Normal 4.6-9.1 [facility] Comment on above: Performed By: #### 1 [id number] #### [facility] [address] [place] [address] Elvis 02-08-2024 L Specimen: [id number] Received: 02/11/24 Status: DARBY Ernst Num: [id number] Spec Type: Surgical Subm Dr: Rashaun Amador Tissues: A Fallopian Tube - Sterilization (FT BILATERAL) Procedures: HE/2, Gross/Micro L2 Age/ Patient Sex Location Account Attending Physician Susan Bro 28/F LABELL [id number] Rashaun Amador SPEC NUM: [id number] RECD: 02/11/24 STATUS: DARBY ERNST NUM: [id number] MARIA ANTONIA: 02/08/24-[address]: Rashaun Amador ENTERED: 02/11/24 [facility] : Jessica,Lab SPEC TYPE: Surgical DEPT: CLAUDINE MAURER [...] intact lumen lined by unremarkable shannon mucosa. Distribution Superintendent sections are submitted in A1 (tube #1) and A2 (tube #2). Clinical history: Request for sterilization TW CPT Codes 94201 Specimen: [id number] Received: 02/11/24 Status: DARBY Ernst Num: [id number] Spec Type: Surgical Subm Dr: Rashaun Amador Tissues: A Fallopian Tube - Sterilization (FT BILATERAL) Procedures: HE/2, Gross/Micro L2 Patient: Susan Bro [id number] (Continued) Signed (signature on file) Alejandra Gonzalez MD 02/12/241923 Normal [facility] ALL THYROID STIM HORMONEon 0 11-27-2023 TSH Qn 2.029 m[IU]/L [facility] Urinalysis macro (dipstick) panel (U)on 11-27-2023 Bilirubin, UA Negative Negative - 4(70) +++ mg/dL [facility] Blood, UA Negative Negative - 50 Tod/mcL [facility] Clarity, UA Clear [facility] Color, UA Yellow [facility] Glucose, UA Negative Negative - 1999(110) ++++ mg/dL [facility] Interpretation and review of laboratory results Abnormal [facility] Ketones, UA Positive Negative - 160(16) ++++ mg/dL [facility] Leukocytes, UA Positive Negative - 500+++ Rosemarie/mcL [facility] Nitrite, UA Negative Negative - Positive [facility] pH, UA 6.5 5 - 9 [facility] Protein, UA Trace Negative - 1999(20) ++++ mg/dL [facility] Spec Grav, UA 1.025 1 - 1.03 [facility] Urobilinogen, UA 1.0 0.2 - 12 mg/dL [facility] Urinalysis macro (dipstick) panel (U)on 11-20-2023 Bilirubin, UA Negative Negative - 4(70) +++ mg/dL [facility] Blood, UA Negative Negative - 50 Tod/mcL [facility] Clarity, UA Clear [facility] Color, UA Yellow [facility] Glucose, UA Negative Negative - 1999(110) ++++ mg/dL [facility] Interpretation and review of laboratory results Normal [facility] Ketones, UA Negative Negative - 160(16) ++++ mg/dL [facility] Leukocytes, UA Negative Negative - 500+++ Rosemarie/mcL [facility] Nitrite, UA Negative Negative - Positive [facility] pH, UA 7.0 5 - 9 [facility] Protein, UA Negative Negative - 1999(20) ++++ mg/dL [facility] Spec Grav, UA 1.025 1 - 1.03 [facility] Urobilinogen, UA 1.0 0.2 - 12 mg/dL [facility] C Urineon 11-06-2023 Bacteria identified Cx [...] Locations R1: This test was performed at: [facility], [address] [place] [address], [facility]- , , [facility] Comment on above: Performed By: #### 2 [id number], [id number], 5169241, 4236809, 3390491, [id number] #### [facility] [address] [place] [address] Nursing Assessmenton 024 Nursing Assessment [id number]#1.00TIFF [facility] Consent for Treatmenton 10-16 Consent for Treatment [id number]#1.00TIFF [facility] Discharge Instructionson Discharge Instructions [id number]#1.00TIFF Normal [facility] Inpatient Clinical Summaryon 11-04-2023 Inpatient Clinical Summary [address] [address] Clinical Summary Person Information Name: SUSAN BRO [place] Age: 28 Years : 1995 Sex: Female PCP: MELINA MAHONEY Marital Status: Single Phone: [phone] Race: White Ethnicity: Non- or Language: Bangladeshi Visit Id: Visit Reason: Speciality: Acuity: Obs Enc Type: OB Triage Med Service: Obstetrics Arrival: 11/04/2023 07:52:14 Discharge: 11/04/2023 09:55:00 Dispo Type: Home (Routine DC) Address: [address] [place] [address] [id number] Provider Notes: Diagnosis: Problems Active (08/18/2023) Pre-employment [...] Physician: Follow up: With: Address: When: Rashaun PERRYPending Sale To [facility], [address] [place] [address] , [place] [address] Business (1) In 2 days 11/06/2023 Comments: Call for any problems. Appointment has already been scheduled Call physician if symptoms worsen Please call if you need to reschedule Return for contractions closer, longer, harder Return for decreased movement Return if ruptured membranes or vaginal bleeding Patient Education Information: Normal [facility] Inpatient Patient Summaryon 11-04-2023 Inpatient Patient Summary [address] [address] Patient Discharge Instructions PERSON INFORMATION Name: SUSAN BRO Date of : 1995 Current Date: 11/04/2023 10:02:50 PHYSICIANS Admitting Physician: Rashaun AMADOR DO Primary Care Physician: MELINA MAHONEY PCP Phone Number: Comment: Discharge Diagnosis: Condition at Discharge: Stable RONEN BRONICA Rochelle has been given the following list of [...] None Follow up: With: Address: When: Rashaun RODRIGUEZPending Sale To [facility], [address] [place] [address] [place] [address] BeDo (1) In 2 days 11/06/2023 Comments: Call [...] Leaflets: You may receive a survey from Lynnette Khoury asking you to rate your care experience. [...] signed up for this yet, please contact Health Information Management at [phone] to get signed up today. KIRAN Award [...] QR code below. Thank you for choosing [facility] Normal [facility] Insurance Correspondence Off iceon 11-04-2023 Insurance Correspondence Office [id number]#1.00TIFF Normal [facility] UA With Cult Reflexon 2023 Bacteria LM Ql (Urine sed) TRACE Normal Trace [facility] Comment on above: Performed By: #### 2 348727, [id number], 4720957, 5461749, 8521613, 8067932 #### [facility] [address] [place] [address] Bilirubin Ql (U) Negative Normal Negative [facility] Comment on above: Performed By: #### 2 751962, 00742403, 5651222, 1514482, 9950264, 5142797 #### [facility] [address] [place] [address] Clarity (U) SL CLOUDY Invalid Interpretation Code [facility] Comment on above: Performed By: #### 2 927064, 40610224, 4757852, 5349752, 5663646, 6411140 #### [facility] [address] [place] [address] Color (U) YELLOW Normal Yellow [facility] Comment on above: Performed By: #### 2 623496, 16521314, 2540168, 7615621, 0865783, 2685678 #### [facility] [address] [place] [address] Epithelial cells.squamous LM.HPF (Urine sed) [#/Area] 5-8 Normal 0-2 [facility] Comment on above: Performed By: #### 2 377808, 56383643, 6679397, 3340406, 4082093, 1157775 #### [facility] [address] [place] [address] Glucose Test strip (U) [Mass/Vol] Negative Normal Negative [facility] Comment on above: Performed By: #### 2 760320, 32913938, 5735777, 7367062, 7419912, 3233059 #### [facility] [address] [place] [address] Hemoglobin Ql (U) Negative Normal Negative [facility] Comment on above: Performed By: #### 2 412898, 50047935, 4355229, 9418241, 8635595, 9301574 #### [facility] [address] [place] [address] Ketones (U) [Mass/Vol] Negative Normal Negative [facility] Comment on above: Performed By: #### 2 875046, 52813165, 4902432, 8565846, 1225544, 1471152 #### [facility] [address] [place] [address] [place].plasma/[place] .RBC (Bld) [Mass ratio] 0-3 Normal 0-3 [facility] Comment on above: Performed By: #### 2 546799, 06951048, 3831628, 4921383, 7866642, 9934890 #### [facility] [address] [place] [address] Mucus Ql (Urine sed) TRACE Normal [facility] Comment on above: Performed By: #### 2 446497, 18534811, 4126098, 9998159, 3509224, 2763814 #### [facility] [address] [place] [address] Nitrite Ql (U) Negative Normal Negative [facility] Comment on above: Performed By: #### 2 770976, 40337714, 3083968, 7353839, 1352693, 7501229 #### [facility] [address] [place] [address] pH (U) 7.0 [pH] Invalid Interpretation Code 5.0-9.0 [facility] Comment on above: Performed By: #### 2 403098, 45445585, 0406589, 0943505, 9262143, 0653118 #### [facility] [address] [place] [address] Protein (U) [Mass/Vol] Negative Normal Negative [facility] Comment on above: Performed By: #### 2 526441, 73717717, 6738093, 5762572, 5267901, 4810991 #### [facility] [address] [place] [address] Specific gravity (U) [Rel density] 1.015 Invalid Interpretation Code 1.005-1.030 [facility] Comment on above: Performed By: #### 2 913109, 23441997, 9074076, 7611163, 4786983, 8422051 #### [facility] [address] [place] [address] Type of Urine collection method Clean Catch Normal [facility] Comment on above: Performed By: #### 2 455104, 68612532, 8639866, 9407288, 2240473, 0342573 #### [facility] [address] [place] [address] Urobilinogen Qn (U) 0.2 {Rola'U}/dL Normal 0.0-1.0 [facility] Comment on above: Performed By: #### 2 907777, 03167027, 7766947, 1550733, 1352622, 4696647 #### [facility] [address] [place] [address] WBC Auto Ql (U) 1+ Abnormal Negative [facility] Comment on above: Performed By: #### 2 290809, 46765212, 5017605, 9011063, 4891958, 7880551 #### [facility] [address] [place] [address] WBC LM.HPF (Urine sed) [#/Area] 6-15 Abnormal 0-5 [facility] Comment on above: Performed By: #### 2 919050, 79789453, 2585439, 5670975, 1152892, 7490847 #### [facility] [address] [place] [address] URINALYSISOrdered By: An Mccarty on 11-04-2023 Bacteria [...] AM) Normal Negative [facility] UA Auto SS [place].plasma/[place] .RBC (Bld) [Mass ratio] 0-3 /HPF Normal [...] Desc Clean Catch (11/04/23 8:05 AM) Normal [facility] UA Auto SS Urobilinogen Qn (U) 0.2607004 {Rola'U}/dL Normal 0.0 - 1.0 EU/dL FT UA Auto SS WBC Auto Ql (U) 1+ *ABN* (11/04/23 8:05 AM) Invalid Interpretation Code Negative [facility] UA Auto SS WBC LM.HPF (Urine sed) [#/Area] 6-15 /HPF Invalid Interpretation Code 0-5/HPF [facility] UA Auto SS T3 Totalon 08-24-2023 T3 [Mass/Vol] 146 ng/dL Invalid Interpretation Code 71-180 [facility] Comment on above: Result Comment: Perf ormed at: [facility] [address] [id number] PhD Caroline [place] Performed By: #### 2 218926, 38803040, 9237385, 5326854, 1735748, 4777277 #### [facility] [address] [place] [address] Auto Diffon 08-23-2023 Basophils/100 WBC (Bld) 0.9 % Normal 0.0-2.0 [facility] Comment on above: Order Comment: Order Added by Discern Expert. Performed By: #### 2 224543, 21741424, 3195879, 0894292, 8047493, 6539247 #### [facility] [address] [place] [address] Basophils/Leukocytes Auto (Bld) [Pure # fraction] 0.1 E9/L Normal 0.0-0.2 [facility] Comment on above: Order Comment: Order Added by Discern Expert. Performed By: #### 2 686653, 21556375, 1011722, 6067100, 4875082, 4035934 #### [facility] [address] [place] [address] Eosinophils/100 WBC (Bld) 1.3 % Normal 0.0-8.0 [facility] Comment on above: Order Comment: Order Added by Discern Expert. Performed By: #### 2 445021, 68094500, 9760028, 6413928, 6751687, 1103661 #### [facility] [address] [place] [address] Eosinophils/Leukocytes Auto (Bld) [Pure # fraction] 0.1 E9/L Normal 0.0-0.5 [facility] Comment on above: Order Comment: Order Added by Gisselle Expert. Performed By: #### 2 190063, 49233336, 3319714, 0140145, 2491101, 4994209 #### [facility] [address] [place] [address] Lymphocytes/100 WBC (Bld) 17.7 % Normal 14.0-50.0 [facility] Comment on above: Order Comment: Order Added by Gisselle Expert. Performed By: #### 2 582882, 64392361, 4794067, 7493469, 0983487, 8365179 #### [facility] [address] [place] [address] Lymphocytes/Leukocytes Auto (Bld) [Pure # fraction] 1.4 E9/L Normal 1.0-4.0 [facility] Comment on above: Order Comment: Order Added by Gisselle Expert. Performed By: #### 2 066678, 02829301, 5662312, 2639282, 3363093, 5568917 #### [facility] [address] [place] [address] Monocytes/100 WBC (Bld) 5.1 % Normal 4.0-14.0 [facility] Comment on above: Order Comment: Order Added by Gisselle Expert. Performed By: #### 2 240890, 87088331, 6134719, 5182831, 0272494, 0213095 #### [facility] [address] [place] [address] Monocytes/Leukocytes Auto (Bld) [Pure # fraction] 0.4 E9/L Normal 0.2-1.0 [facility] Comment on above: Order Comment: Order Added by Discern Expert. Performed By: #### 2 945634, 57512343, 7628836, 5566353, 8772580, 5493198 #### [facility] [address] [place] [address] Neutrophils/100 WBC (Bld) 75.0 % Normal 36.0-75.0 [facility] Comment on above: Order Comment: Order Added by Discern Expert. Performed By: #### 2 670969, 92283928, 6331329, 3443052, 7055191, 8583924 #### [facility] [address] [place] [address] Neutrophils/Leukocytes Auto (Bld) [Pure # fraction] 5.8 E9/L Normal 2.0-7.5 [facility] Comment on above: Order Comment: Order Added by Discern Expert. Performed By: #### 2 382608, 66442246, 2837329, 9865865, 1891913, 4658617 #### [facility] [address] [place] [address] CBC w/ Auto Diffon 3 Erythrocyte distribution width (RBC) [Ratio] 14.5 % High 10.9-14.2 [facility] Comment on above: Performed By: #### 2 982357, 62902446, 9052245, 3141003, 4240333, 7319876 #### [facility] [address] [place] [address] Hematocrit (Bld) [Volume fraction] 36.4 % Normal 34.0-46.0 [facility] Comment on above: Performed By: #### 2 363606, 57957068, 0311308, 4028689, 1654238, 1030720 #### [facility] [address] [place] [address] Hemoglobin (Bld) [Mass/Vol] 12.1 g/dL Normal 12.0-16.0 [facility] Comment on above: Performed By: #### 2 789350, 81093715, 2513903, 2969760, 6876265, 8904310 #### [facility] [address] [place] [address] MCH (RBC) [Entitic mass] 30.2 pg Normal 27.0-34.0 [facility] Comment on above: Performed By: #### 2 717303, 77298223, 7815774, 6069594, 8290153, 6721953 #### [facility] [address] [place] [address] MCHC (RBC) [Mass/Vol] 33.3 g/dL Normal 31.4-36.0 [facility] Comment on above: Performed By: #### 2 272611, 17000683, 9820121, 6921573, 0384404, 2964650 #### [facility] [address] [place] [address] MCV (RBC) [Entitic vol] 90.8 fL Normal 80.0-100.0 [facility] Comment on above: Performed By: #### 2 212727, 47635707, 2804968, 7019274, 4217700, 0604681 #### [facility] [address] [place] [address] Platelet mean volume (Bld) [Entitic vol] 9.7 fL Normal 6.4-10.8 [facility] Comment on above: Performed By: #### 2 462544, 63160047, 9469551, 7191627, 2187215, 0674921 #### [facility] [address] [place] [address] Platelets (Bld) [#/Vol] 270.0 E9/L Normal 150.0-500.0 [facility] Comment on above: Performed By: #### 2 373757, 12562213, 0556234, 4265712, 1832754, 9559973 #### [facility] [address] [place] [address] RBC (Bld) [#/Vol] 4.0 E12/L Low 4.3-5.9 [facility] Comment on above: Performed By: #### 2 390960, 38812521, 5405985, 5696482, 5686717, 9485969 #### [facility] [address] [place] [address] WBC corrected for nucl RBC Auto (Bld) [#/Vol] 7.7 E9/L Normal 4.0-11.0 [facility] Comment on above: Performed By: #### 2 051388, 50234578, 7922591, 0612701, 7680308, 7232503 #### [facility] [address] [place] [address] CHEMISTRYOrdered By: SYSTEM SYSTEM on 08-23-2023 Albumin [...] 125 mL/min/1.73 m2 Normal >=59mL/min/ 1.73 m2 [facility] Chem S Comment on above: Interpretive Data: [...] 3.61 m[IU]/L Normal 0.34 - 5.60 mcIU/mL [facility] Remisol Urea nitrogen [Mass/Vol] 7 mg/dL Normal 5 - 21 mg/dL [facility] Remisol Urea nitrogen/Creatinine [Mass ratio] 12 mg/mg Normal 10 - 20 [facility] Remisol CMPon 08-23-2023 Albumin [Mass/Vol] 2.8 g/dL Low 3.3-5.0 [facility] Comment on above: Performed By: #### 2 026217, 70696347, 0418102, 6495122, 0318646, 6221141 #### [facility] [address] [place] [address] Albumin/Globulin (S) [Mass conc ratio] 0.7 Low 1.1-2.2 [facility] Comment on above: Performed By: #### 2 021330, 01526387, 3083105, 9208796, 9415540, 9406728 #### [facility] [address] [place] [address] ALP [Catalytic activity/Vol] 49 Int._Unit/L Normal 21-98 [facility] Comment on above: Performed By: #### 2 857175, 06294133, 5162240, 2293778, 4550332, 6406195 #### [facility] [address] [place] [address] ALT No additional P-5'-P [Catalytic activity/Vol] 15 Int._Unit/L Normal 6-46 [facility] Comment on above: Performed By: #### 2 990463, 34637428, 2678248, 1722836, 5791857, 5376884 #### [facility] [address] [place] [address] Anion gap [Moles/Vol] 12 mmol/L Normal 6-16 [facility] Comment on above: Performed By: #### 2 818446, 77255580, 1677425, 4158225, 7372817, 0106382 #### [facility] [address] [place] [address] AST [Catalytic activity/Vol] 17 Int._Unit/L Normal 5-43 [facility] Comment on above: Performed By: #### 2 725716, 81926939, 9761936, 5315538, 3949836, 0222467 #### [facility] [address] [place] [address] Bilirubin [Mass/Vol] 0.5 mg/dL Normal 0.0-1.[address] [facility] Comment on above: Performed By: #### 2 828296, 92933679, 8771232, 8846513, 7906090, 2074260 #### [facility] [address] [place] [address] Calcium [Mass/Vol] 8.8 mg/dL Low 8.9-11.1 [facility] Comment on above: Performed By: #### 2 612979, 05536783, 4729658, 5181970, 2066276, 0749548 #### [facility] [address] [place] [address] Chloride [Moles/Vol] 108 mmol/L Normal 101-[address] [facility] Comment on above: Performed By: #### 2 557419, 07803174, 5116517, 9601350, 1715629, 3185734 #### [facility] [address] [place] [address] CO2 [Moles/Vol] 22 mmol/L Normal 21-31 [facility] Comment on above: Performed By: #### 2 273607, 19492650, 5224861, 5561336, 2232496, 5431564 #### [facility] [address] [place] [address] Creatinine [Mass/Vol] 0.6 mg/dL Normal 0.5-1.3 [facility] Comment on above: Performed By: #### 2 498300, 01094014, 7942325, 2545274, 1062066, 9107751 #### [facility] [address] [place] [address] Globulin (S) [Mass/Vol] 3.8 g/dL Normal 1.4-4.0 [facility] Comment on above: Performed By: #### 2 471532, 49303574, 3195254, 2626634, 0749284, 5028474 #### [facility] [address] [place] [address] Glucose [Mass/Vol] 88 mg/dL Normal 55-199 [facility] Comment on above: Result Comment: If t his glucose result represents a fasting glucose, interpretation should refer to the following reference range: 55-99 mg/dL Performed By: #### 2 907468, 56993100, 5780431, 1647444, 1620520, 8756322 #### [facility] [address] [place] [address] Potassium [Moles/Vol] 3.5 mmol/L Normal 3.5-5.3 [facility] Comment on above: Performed By: #### 2 456370, 98527424, 4316232, 0274899, 6926393, 9402654 #### [facility] [address] [place] [address] Protein [Mass/Vol] 6.6 g/dL Normal 6.0-7.8 [facility] Comment on above: Performed By: #### 2 469317, 55203830, 3148607, 5546336, 2333444, 2234751 #### [facility] [address] [place] [address] Sodium [Moles/Vol] 138 mmol/L Normal 135-145 [facility] Comment on above: Performed By: #### 2 944976, 78434634, 0676542, 3459033, 1494035, 0189156 #### [facility] [address] [place] [address] Urea nitrogen [Mass/Vol] 7 mg/dL Normal 5-21 [facility] Comment on above: Performed By: #### 2 751066, 12043379, 7098415, 6221501, 1876253, 6108806 #### [facility] [address] [place] [address] Urea nitrogen/Creatinine [Mass ratio] 12 No Units Normal 10-20 [facility] Comment on above: Performed By: #### 2 796216, 23084919, 3276849, 6625602, 7951584, 6030745 #### [facility] [address] [place] [address] HEMATOLOGYOrdered By: SYSTEM SYSTEM on 08-23-2023 Basophils/100 [...] 7.7 E9/L Normal 4.0 - 11.0 E9/L [facility] HemeAutoSS Lipid Panelon 08-23-2023 Cholesterol [Mass/Vol] 238 mg/dL High 120-200 [facility] Comment on above: Performed By: #### 2 060478, 20066721, 0778371, 4479774, 9676444, 9017554 #### [facility] [address] [place] [address] Cholesterol in HDL [Mass/Vol] 64 mg/dL Invalid Interpretation Code [facility] Comment on above: Result Comment: HDL > or equal to 60 mg/dL: Low cardiovascular risk HDL < 40 mg/dL : High cardiovascular risk Performed By: #### 2 956850, 25999386, 4779204, 9590235, 2964956, 7417856 #### [facility] [address] [place] [address] Cholesterol in LDL [Mass/Vol] 146 mg/dL High <=129 [facility] Comment on above: Performed By: #### 2 427284, 95806565, 2139242, 3083513, 1346392, 5740941 #### [facility] [address] [place] [address] Cholesterol in VLDL [Mass/Vol] 33 mg/dL Normal 7-40 [facility] Comment on above: Performed By: #### 2 699340, 84933317, 6465285, 1015638, 2926903, 8216016 #### [facility] [address] [place] [address] Triglyceride [Mass/Vol] 164 mg/dL High <=149 [facility] Comment on above: Performed By: #### 2 025237, 35663746, 4553655, 8784127, 2142342, 6619103 #### [facility] [address] [place] [address] Physician Orderon 08-23-2023 Physician Order [id number]#1.00TIFF Normal [facility] T4 & TSHon 08-23-2023 T4 [Mass/Vol] 11.8 microgram/dL High 4.6-9.1 [facility] Comment on above: Performed By: #### 2 472498, 91413956, 1387526, 4793391, 7679526, 1463281 #### [facility] [address] [place] [address] TSH Qn 3.61 m[IU]/L Normal 0.34-5.60 [facility] Comment on above: Performed By: #### 2 744423, 28012547, 8058601, 0798789, 5731476, 1896694 #### [facility] [address] [place] [address] eGFRon 08-23-2023 GFR/1.73 sq M.predicted among non-blacks MDRD (S/P/Bld) [Vol rate/Area] 125 mL/min/1.73 m2 Normal >=59 [facility] Comment on above: Order Comment: Order Added by Discern Expert. Result Comment: [employer] Artist lucy kidney disease could be indicated at eGFR's of less than 60 mL/min/1.73m2. Kidney failure is indicated at less than 15 mL/min/1.73m2. Performed By: #### 2 901534, 91429346, 3893609, 0004946, 5276360, 3489469 #### [facility] [address] [place] [address] Nursing Assessmenton 023 Nursing Assessment [id number]#1.00TIFF Normal [facility] Consent for Treatmenton Consent for Treatment [id number]#1.00TIFF Normal [facility] Discharge Instructionson Discharge Instructions [id number]#1.00TIFF Normal [facility] Inpatient Clinical Summaryon 08-18-2023 Inpatient Clinical Summary [address] [address] Clinical Summary Person Information Name: RHIANNARONEN GutierrezSUSAN D [facility] Age: 27 Years : 1995 Sex: Female PCP: NONE, XXXX Marital Status: Single Phone: [phone] Race: White Ethnicity: Non- or Language: Bangladeshi Visit Id: Visit Reason: Speciality: Acuity: Enc Type: OB Triage Med Service: Obstetrics Arrival: 08/18/2023 07:19:19 Discharge: 08/18/2023 08:15:00 Dispo Type: Home (Routine DC) Address: [address] [place] [id number] Provider Notes: Diagnosis: Problems Active (08/18/2023) Pre-employment [...] Patient Education Information: Second Trimester of , Hezg-vz-Vugm Normal [facility] Inpatient Patient Summaryon 08-18-2023 Inpatient Patient Summary [place] [id number] Patient Discharge Instructions PERSON INFORMATION Name: SUSAN [...] these instructions at home: Medicines ? Take jnbs-qdt-yctpcxb and prescription medicines only as told by [...] your leg (more content not included)... Normal [facility] Insurance Correspondenceon 1 10-18-2022 Insurance Correspondence [id number]#1.00TIFF Normal [facility] Vaccinationson 08-18-2023 Vaccinations [id number]#1.00TIFF Normal [facility] C Urineon 07-27-2023 Bacteria identified [...] Locations R1: This test was performed at: [facility], [address] [place] [address], [address] , [place], Normal [facility] Comment on above: Performed By: #### 2 588702, [id number] #### [facility] [address] [place] [address] ABO/Rhon 07-25-2023 ABO/Rh Positive Invalid Interpretation Code [facility] Comment on above: Performed By: #### 2 012160 ####[facility] [address] [place] [address] Auto Diffon 07-25-2023 Basophils/100 WBC (Bld) 1.1 % Normal 0.0-2.0 [facility] Comment on above: Order Comment: Order Added by Discern Expert. Performed By: #### 2 024449, 94658324, 2738717, 3709831, 8871167, 6671661 #### [facility] [address] [place] [address] Basophils/Leukocytes Auto (Bld) [Pure # fraction] 0.1 E9/L Normal 0.0-0.2 [facility] Comment on above: Order Comment: Order Added by Discern Expert. Performed By: #### 2 070602, 83806206, 0296302, 2566782, 9525410, 3397797 #### [facility] [address] [place] [address] Eosinophils/100 WBC (Bld) 1.2 % Normal 0.0-8.0 [facility] Comment on above: Order Comment: Order Added by Discern Expert. Performed By: #### 2 699207, 16525854, 6136342, 0094911, 7500216, 9691416 #### [facility] [address] [place] [address] Eosinophils/Leukocytes Auto (Bld) [Pure # fraction] 0.1 E9/L Normal 0.0-0.5 [facility] Comment on above: Order Comment: Order Added by Discern Expert. Performed By: #### 2 952921, 41427734, 1300541, 2342999, 9952010, 2585000 #### [facility] [address] [place] [address] Lymphocytes/100 WBC (Bld) 23.7 % Normal 14.0-50.0 [facility] Comment on above: Order Comment: Order Added by Discern Expert. Performed By: #### 2 261885, 94130721, 0845401, 6517821, 0725722, 8778840 #### [facility] [address] [place] [address] Lymphocytes/Leukocytes Auto (Bld) [Pure # fraction] 1.4 E9/L Normal 1.0-4.0 [facility] Comment on above: Order Comment: Order Added by Discern Expert. Performed By: #### 2 093607, 50025488, 4518869, 5255991, 8040244, 2228884 #### [facility] [address] [place] [address] Monocytes/100 WBC (Bld) 6.7 % Normal 4.0-14.0 [facility] Comment on above: Order Comment: Order Added by Discern Expert. Performed By: #### 2 093041, 65823155, 5021893, 3296467, 9410958, 8308425 #### [facility] [address] [place] [address] Monocytes/Leukocytes Auto (Bld) [Pure # fraction] 0.4 E9/L Normal 0.2-1.0 [facility] Comment on above: Order Comment: Order Added by Discern Expert. Performed By: #### 2 948034, 58095179, 0963804, 0320484, 8126293, 0013546 #### [facility] [address] [place] [address] Neutrophils/100 WBC (Bld) 67.3 % Normal 36.0-75.0 [facility] Comment on above: Order Comment: Order Added by Discern Expert. Performed By: #### 2 073507, 28466917, 2323300, 3146688, 5499044, 5823327 #### [facility] [address] [place] [address] Neutrophils/Leukocytes Auto (Bld) [Pure # fraction] 4.0 E9/L Normal 2.0-7.5 [facility] Comment on above: Order Comment: Order Added by Discern Expert. Performed By: #### 2 934628, 22410852, 0977270, 3734412, 8650791, 8698097 #### [facility] [address] [place] [address] BLOOD BANKOrdered By: An Lassiter on 07-25-2023 ABO/Rh Interp Positive Invalid Interpretation Code [facility] BB Subsection BMPon 07-25-2023 Creatinine [Mass/Vol] 0.6 mg/dL Normal 0.5-1.3 [facility] Comment on above: Performed By: #### 2 125500, 71616316, 9412375, 8779508, 1508258, 5001309 #### [facility] [address] [place] [address] Urea nitrogen [Mass/Vol] 6 mg/dL Normal 5-21 [facility] Comment on above: Performed By: #### 2 688823, 52472280, 5427641, 3400803, 8756197, 6336756 #### [facility] [address] [place] [address] Urea nitrogen/Creatinine [Mass ratio] 10 No Units Normal 10-20 [facility] Comment on above: Performed By: #### 2 963936, 76545823, 9639935, 4850755, 5815907, 6502607 #### [facility] [address] [place] [address] Anion gap [Moles/Vol] 2 mmol/L Low 6-16 [facility] Comment on above: Performed By: #### 2 492678, 28228238, 1492474, 4373987, 8906300, 8664394 #### [facility] [address] [place] [address] Calcium [Mass/Vol] 8.6 mg/dL Low 8.9-11.1 [facility] Comment on above: Performed By: #### 2 421572, 14132992, 3241194, 7354929, 9394555, 9408578 #### [facility] [address] [place] [address] Chloride [Moles/Vol] 107 mmol/L Normal 101-[address] [facility] Comment on above: Performed By: #### 2 646280, 50835939, 3242637, 8960109, 6709004, 9531950 #### [facility] [address] [place] [address] CO2 [Moles/Vol] 27 mmol/L Normal 21-31 [facility] Comment on above: Performed By: #### 2 105527, 52906163, 0664248, 1422710, 3609274, 5940190 #### [facility] [address] [place] [address] Glucose [Mass/Vol] 73 mg/dL Normal 55-199 [facility] Comment on above: Result Comment: If t his glucose result represents a fasting glucose, interpretation should refer to the following reference range: 55-99 mg/dL Performed By: #### 2 623258, 63872507, 8261301, 0736802, 9332857, 1932150 #### [facility] [address] [place] [address] Potassium [Moles/Vol] 3.9 mmol/L Normal 3.5-5.3 [facility] Comment on above: Performed By: #### 2 023846, 07003802, 7986991, 1788214, 2972075, 0459957 #### [facility] [address] [place] [address] Sodium [Moles/Vol] 132 mmol/L Low 135-145 [facility] Comment on above: Performed By: #### 2 642474, 86087968, 1561029, 8420314, 7319289, 9461550 #### [facility] [address] [place] [address] BhCG Quanton 07-25-2023 [place] [address] m[IU]/mL High 1-3 [facility] Comment on above: Result Comment: GEST ATIONAL AGE HCG RANGE (mIU/mL) NON- <1-3 0.2-1 WEEKS 5-50 1-2 WEEKS 50-500 2-3 WEEKS 100-5,000 3-4 WEEKS 500-10,000 4-5 WEEKS 1,000-50,000 5-6 WEEKS 10,000-100,000 6-8 WEEKS 15,000-200,000 8-12 WEEKS 10,000-100,000 Performed By: #### 2 547612 ####[facility] [address] [place] [address] CBC w/ Auto Diffon Erythrocyte distribution width (RBC) [Ratio] 14.0 % Normal 10.9-14.2 [facility] Comment on above: Performed By: #### 2 625778, 26226031, 1203222, 5494059, 9893949, 7242528 #### [facility] [address] [place] [address] Hematocrit (Bld) [Volume fraction] 37.1 % Normal 34.0-46.0 [facility] Comment on above: Performed By: #### 2 325958, 41870065, 9022121, 7943408, 2754919, 5872012 #### [facility] [address] [place] [address] Hemoglobin (Bld) [Mass/Vol] 12.5 g/dL Normal 12.0-16.0 [facility] Comment on above: Performed By: #### 2 377916, 77024044, 2555156, 3351167, 1131683, 1027102 #### [facility] [address] [place] [address] MCH (RBC) [Entitic mass] 29.9 pg Normal 27.0-34.0 [facility] Comment on above: Performed By: #### 2 784023, 89639289, 7257160, 9892904, 2365045, 3782670 #### [facility] [address] [place] [address] MCHC (RBC) [Mass/Vol] 33.8 g/dL Normal 31.4-36.0 [facility] Comment on above: Performed By: #### 2 321426, 23768936, 1555740, 0475056, 2913599, 4421655 #### [facility] [address] [place] [address] MCV (RBC) [Entitic vol] 88.4 fL Normal 80.0-100.0 [facility] Comment on above: Performed By: #### 2 014480, 24176237, 1643946, 5653615, 2314639, 3785865 #### [facility] [address] [place] [address] Platelet mean volume (Bld) [Entitic vol] 7.9 fL Normal 6.4-10.8 [facility] Comment on above: Performed By: #### 2 634861, 85579534, 8941344, 6478214, 4055556, 5498665 #### [facility] [address] [place] [address] Platelets (Bld) [#/Vol] 261.0 E9/L Normal 150.0-500.0 [facility] Comment on above: Performed By: #### 2 803417, 15473814, 3987508, 4260356, 9750695, 9008591 #### [facility] [address] [place] [address] RBC (Bld) [#/Vol] 4.2 E12/L Low 4.3-5.9 [facility] Comment on above: Performed By: #### 2 824413, 19248869, 7352524, 8247713, 0747953, 8598671 #### [facility] [address] [place] [address] WBC corrected for nucl RBC Auto (Bld) [#/Vol] 5.9 E9/L Normal 4.0-11.0 [facility] Comment on above: Performed By: #### 2 404290, 06396035, 0853748, 2257321, 0513180, 6931224 #### [facility] [address] [place] [address] CHEMISTRYOrdered By: SYSTEM SYSTEM on 07-25-2023 Albumin [...] 125 mL/min/1.73 m2 Normal >=59mL/min/ 1.73 m2 [facility] Chem S Comment on above: Interpretive Data: [...] reference range: 55-99 mg/[place] [address] m[IU]/mL High 1 - 3 mIU/mL [facility] [...] 132 mmol/L Low 135 - 145 mmol/L [facility] Remisol Urea nitrogen [Mass/Vol] 6 mg/dL Normal 5 - 21 mg/dL [facility] Remisol Urea nitrogen/Creatinine [Mass ratio] 10 mg/mg Normal 10 - 20 [facility] Remisol Consent for Treatmenton 07-15 Consent for Treatment [id number]#1.00TIFF Normal [facility] Discharge Instructionson Discharge Instructions [id number]#1.00TIFF Normal [facility] ED Clinical Summaryon 2022 ED Clinical Summary (Inserted Image. Maryann ble to display) [place] [id number] ED Clinical Summary Person Information Name: SUSAN BRO [facility] Age: 27 Years : 1995 Sex: Female Language: Bangladeshi PCP: Rashaun AMADOR DO Marital Status: Single Phone: [phone] Visit Id: Visit Reason: Abdominal pain - [...] 07/25/2023 10:02:43 07/25/2023 10:02:43 07/25/2023 10:02:43 ADDR[facility]: [facility] [id number] PHYS DOC NOTES: MEDICAL INFORMATION: Prescriptions Given: [...] up: With: Address: When: Luis Carlos [address], [facility] [address], [place] [address] Business (1) In 3 days 07/28/2023 DIAGNOSIS: Abdominal cramping; Vaginal spotting Normal [facility] ED Note-Physicianon 07-25-20 ED Note-Physician [...] complications with her previous , has a 50-cgbdn-xze at home. Review of Systems Full 10 [...] and Complexity of Problems Differential Diagnosis: [] [facility] Data External documents reviewed: [] My EKG [...] This was discussed with patient. Follow-up with 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 was discussed with patient. Return precautions to [...] Jung In 3 days 07/28/2023 EDT 278 [facility], [address] [place] [address]- Business (1) Additional Instructions: Patient Education Abdominal Pain During Attestation Patient seen and evaluated by the physician production assistant. Attending physician was present in the emergency department and supervised care. This visit was performed by both the physician and an APC. I performed all aspects of the MDM as documented. This report was transcribed using voice recognition software. Every effort was made to ensure accuracy, however, inadvertently computerized university counselor mistakes may be present. Appropriate healthcare PPE was used in evaluating this patient. The patient was placed in a mask. The healthcare provider was wearing mask, gloves, and utilizing proper hand hygiene. All equipment was properly cleansed Problem List/Past Medical History Ongoing Gallstone Pre-employment examination Smoker 16-APR-2014 (more content not included)... Normal [facility] Comment on above: Result [...] keep your urine pale yellow. ? Take lwxa-jdh-btdwtmg and prescription medicines only as told by [...] Reviewed: 06/14/2021 Elsevier Patient Education ? 2022 [employer] Normal [facility] ED Patient Summaryon 023 ED Patient Summary (Inserted Image. Maryann ble to display) [address] [address] Patient Discharge Instructions Person Information Name: SUSAN BRO Age: 27 Years Arrival Date: 07/25/2023 08:12:57 Discharge Diagnosis: Abdominal cramping; Vaginal spotting Primary Care Physician: Rashaun AMADOR DO Provider Information Primary Provider: Kristian Guillermo DO Advanced [employer] Glazier:Jorge Velarde PA-C The exam and treatment you received in the Emergency Department were for an urgent problem and are not intended as complete care. It is important that you follow up with a doctor, nurse practitioner, or physician?s production assistant for ongoing care. If your symptoms become [...] Instructions: With: Address: When: Luis Carlos Jung [address] [place] [address] Business (1) In 3 days 07/28/2023 In the event that this physician does not participate in your insurance network, please consult with your insurance company to find a nearby participating provider. Patient Education Materials: Abdominal Pain During A MESSAGE TO ALL PATIENTS REGARDING OPIOIDS PRESCRIPTION OPIOIDS: WHAT YOU NEED TO KNOW Prescription opioids can be used to help relieve jovixasq-ne-jpgxyh pain and are often prescribed following a [...] be struggling with addiction, tell your health child care worker and ask for guidance or call [facility] (more content not included)... Normal [facility] HEMATOLOGYOrdered By: SYSTEM SYSTEM on [...] 4.2 E12/L Low 4.3 - 5.9 E12/L [facility] HemeAutoSS WBC corrected for nucl RBC Auto (Bld) [#/Vol] 5.9 E9/L Normal 4.0 - 11.0 E9/L [facility] HemeAutoSS Hep Func Panelon 07-25-2023 Bilirubin.indirect [Mass or moles/Vol] UTC Abnormal 0.1-0.9 [facility] Comment on above: Result Comment: Resu lt verified by Discern Rule. Performed result UTC (Unable to Calculate) was sent as an Alpha code due the inability to calculate a valid numeric value. Performed By: #### 2 057477, 55732419, 7640671, 9798238, 2532549, 6033892 #### [facility] [address] [place] [address] Albumin [Mass/Vol] 3.1 g/dL Low 3.3-5.0 [facility] Comment on above: Performed By: #### 2 925625, 49277663, 4770591, 1604476, 5369606, 3627230 #### [facility] [address] [place] [address] Albumin/Globulin (S) [Mass conc ratio] 0.9 Low 1.1-2.2 [facility] Comment on above: Performed By: #### 2 568438, 92015012, 3010475, 0933594, 5707365, 9741603 #### [facility] [address] [place] [address] ALP [Catalytic activity/Vol] 35 Int._Unit/L Normal 21-98 [facility] Comment on above: Performed By: #### 2 252574, 91125747, 5936946, 3003986, 0495570, 1570681 #### [facility] [address] [place] [address] ALT No additional P-5'-P [Catalytic activity/Vol] 10 Int._Unit/L Normal 6-46 [facility] Comment on above: Performed By: #### 2 618574, 90126366, 4227009, 3164986, 8517354, 4506971 #### [facility] [address] [place] [address] AST [Catalytic activity/Vol] 18 Int._Unit/L Normal 5-43 [facility] Comment on above: Performed By: #### 2 487965, 87681562, 4889716, 3186648, 0271551, 2558735 #### [facility] [address] [place] [address] Bilirubin [Mass/Vol] 0.4 mg/dL Normal 0.0-1.[address] [facility] Comment on above: Performed By: #### 2 921845, 41788133, 4292936, 4252375, 1683392, 5360928 #### [facility] [address] [place] [address] Globulin (S) [Mass/Vol] 3.6 g/dL Normal 1.4-4.0 [facility] Comment on above: Performed By: #### 2 763790, 01450601, 6073242, 8042293, 3376252, 9160866 #### [facility] [address] [place] [address] Protein [Mass/Vol] 6.7 g/dL Normal 6.0-7.8 [facility] Comment on above: Performed By: #### 2 108955, 28573290, 2931755, 7557510, 5151526, 4190155 #### [facility] [address] [place] [address] Bilirubin.direct [Mass/Vol] mg/dL Normal 0.1-0.4 [facility] Comment on above: Performed By: #### 2 786776, 92095213, 5075820, 7227194, 4561648, 0308370 #### [facility] [address] [place] [address] Lipase Levelon 07-25-2023 Lipase [Catalytic activity/Vol] 28 U/L Normal 13-58 [facility] Comment on above: Performed By: #### 2 614842, 97574663, 9942377, 4605221, 2569076, 4080723 #### [facility] [address] [place] [address] UA With Cult Reflexon 2022 Bacteria LM Ql (Urine sed) TRACE Normal Trace [facility] Comment on above: Performed By: #### 2 805712, 07081386 #### [facility] [address] [place] [address] Bilirubin Ql (U) Negative Normal Negative [facility] Comment on above: Performed By: #### 2 214924, 11235993 #### [facility] [address] [place] [address] Clarity (U) SL CLOUDY Abnormal Clear [facility] Comment on above: Performed By: #### 2 830310, 06663133 #### [facility] [address] [place] [address] Color (U) YELLOW Normal Yellow [facility] Comment on above: Performed By: #### 2 780793, 10971591 #### [facility] [address] [place] [address] Epithelial cells.squamous LM.HPF (Urine sed) [#/Area] 0-2 Normal 0-2 [facility] Comment on above: Performed By: #### 2 382815, 85319761 #### [facility] [address] [place] [address] Glucose Test strip (U) [Mass/Vol] Negative Normal Negative [facility] Comment on above: Performed By: #### 2 529156, 92366050 #### [facility] [address] [place] [address] Hemoglobin Ql (U) Negative Normal Negative [facility] Comment on above: Performed By: #### 2 148442, 04155511 #### [facility] [address] [place] [address] Ketones (U) [Mass/Vol] Negative Normal Negative [facility] Comment on above: Performed By: #### 2 715881, 71726436 #### [facility] [address] [place] [address] [place].plasma/[place] .RBC (Bld) [Mass ratio] 0-3 Normal 0-3 [facility] Comment on above: Performed By: #### 2 406504, 58191780 #### [facility] [address] [place] [address] Nitrite Ql (U) Negative Normal Negative [facility] Comment on above: Performed By: #### 2 771807, 25515601 #### [facility] [address] [place] [address] pH (U) 7.5 [pH] Invalid Interpretation Code 5.0-9.0 [facility] Comment on above: Performed By: #### 2 945136, 00643012 #### [facility] [address] [place] [address] Protein (U) [Mass/Vol] Negative Normal Negative [facility] Comment on above: Performed By: #### 2 537941, 06006575 #### [facility] [address] [place] [address] Specific gravity (U) [Rel density] 1.010 Invalid Interpretation Code 1.005-1.030 [facility] Comment on above: Performed By: #### 2 655209, 03582959 #### [facility] [address] [place] [address] Type of Urine collection method Clean Catch Normal [facility] Comment on above: Performed By: #### 2 674491, 65021951 #### [facility] [address] [place] [address] Urobilinogen Qn (U) 1.0 {Rola'U}/dL Normal 0.0-1.0 [facility] Comment on above: Performed By: #### 2 485098, 46196719 #### [facility] [address] [place] [address] WBC Auto Ql (U) 2+ Abnormal Negative [facility] Comment on above: Performed By: #### 2 071150, 95819738 #### [facility] [address] [place] [address] WBC LM.HPF (Urine sed) [#/Area] 0-5 Normal 0-5 [facility] Comment on above: Performed By: #### 2 952737, 34125562 #### [facility] [address] [place] [address] URINALYSISOrdered By: Emy Aiken on 07-25-2023 Bacteria [...] AM) Normal Negative [facility] UA Auto SS [place].plasma/[place] .RBC (Bld) [Mass ratio] 0-3 /HPF Normal [...] Desc Clean Catch (07/25/23 8:33 AM) Normal [facility] UA Auto SS Urobilinogen Qn (U) 1.5914916 {Rola'U}/dL Normal 0.0 - 1.0 EU/dL [facility] UA Auto SS WBC Auto Ql (U) 2+ *ABN* (07/25/23 8:33 AM) Invalid Interpretation Code Negative [facility] UA Auto SS WBC LM.HPF (Urine sed) [#/Area] 0-5 /HPF Normal 0-5/HPF [facility] UA Auto SS US Limitedon 07-25 US [...] (bpm) 147 Cervical Length (cm) 4.4 Normal [facility] eGFRon 07-25-2023 GFR/1.73 sq M.predicted among non-blacks MDRD (S/P/Bld) [Vol rate/Area] 125 mL/min/1.73 m2 Normal >=59 [facility] Comment on above: Order Comment: Order added by Discern Expert. Result Comment: Potter Or Ceramic Artist lucy kidney disease could be indicated at eGFR's of less than 60 mL/min/1.73m2. Kidney failure is indicated at less than 15 mL/min/1.73m2. Performed By: #### 2 720716, 62089407, 5879919, 4999767, 4483272, 7372750 #### [facility] [address] [place] [address] C Urineon 06-30-2023 Bacteria identified Cx Nom [...] Locations R1: [facility], [address] [place] [address], [address]- , [place], Normal [facility] Comment on above: Performed By: #### 2 327166 ####[facility] [address] [place] [address] Family Medicine Office/Clini c Noteon 06-28-2023 Family [...] with voice recognition artificial intelligence software, specifically [employer], [employer] and or [employer]. Substitutions may have occurred due to the [...] is 14 weeks . 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 (Z34.90: Encounter for supervision of normal , unspecified, unspecified trimester) Same as above. 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 Normal [facility] Comment on above: Result [...] these instructions at home: Medicines ? Take qyto-yni-lyvmkjv and prescription medicines only as told by [...] provider. Document Revised: 05/13/2021 Document Reviewed: 05/13/2021 [employer] Patient Education ? 2022 [employer]. Obstetrics and Gynecology Urinary Tract Infection, Adult [...] You h (more content not included)... Normal [facility] ABO/Rhon 06-14-2023 ABO/Rh Positive Invalid Interpretation Code [facility] Comment on above: Performed By: #### 2 499723 ####[facility] [address] [place] [address] Auto Diffon 06-14-2023 Basophils/100 WBC (Bld) 0.8 % Normal 0.0-2.0 [facility] Comment on above: Order Comment: Order Added by Discern Expert. Performed By: #### 2 490130, 66221535, 8768489, 7839874, 5265784, 5303884 #### [facility] [address] [place] [address] Basophils/Leukocytes Auto (Bld) [Pure # fraction] 0.0 E9/L Normal 0.0-0.2 [facility] Comment on above: Order Comment: Order Added by Discern Expert. Performed By: #### 2 031984, 21275759, 5109376, 0168019, 4905605, 3626890 #### [facility] [address] [place] [address] Eosinophils/100 WBC (Bld) 1.9 % Normal 0.0-8.0 [facility] Comment on above: Order Comment: Order Added by Discern Expert. Performed By: #### 2 767098, 14200694, 5206811, 9266244, 3590280, 3447418 #### [facility] [address] [place] [address] Eosinophils/Leukocytes Auto (Bld) [Pure # fraction] 0.1 E9/L Normal 0.0-0.5 [facility] Comment on above: Order Comment: Order Added by Discern Expert. Performed By: #### 2 915353, 39628114, 2724439, 8631360, 9537721, 8002000 #### [facility] [address] [place] [address] Lymphocytes/100 WBC (Bld) 24.5 % Normal 14.0-50.0 [facility] Comment on above: Order Comment: Order Added by Discern Expert. Performed By: #### 2 473136, 65364335, 2393942, 6283013, 6535665, 9551130 #### [facility] [address] [place] [address] Lymphocytes/Leukocytes Auto (Bld) [Pure # fraction] 1.3 E9/L Normal 1.0-4.0 [facility] Comment on above: Order Comment: Order Added by Discern Expert. Performed By: #### 2 904808, 79580883, 5416822, 3157781, 5688225, 6893726 #### [facility] [address] [place] [address] Monocytes/100 WBC (Bld) 7.8 % Normal 4.0-14.0 [facility] Comment on above: Order Comment: Order Added by Discern Expert. Performed By: #### 2 430849, 43844775, 0968978, 4908295, 9563201, 2913701 #### [facility] [address] [place] [address] Monocytes/Leukocytes Auto (Bld) [Pure # fraction] 0.4 E9/L Normal 0.2-1.0 [facility] Comment on above: Order Comment: Order Added by Discern Expert. Performed By: #### 2 406977, 74990756, 2840925, 7350944, 4691151, 7574814 #### [facility] [address] [place] [address] Neutrophils/100 WBC (Bld) 65.0 % Normal 36.0-75.0 [facility] Comment on above: Order Comment: Order Added by Discern Expert. Performed By: #### 2 353229, 79882407, 9804135, 3221214, 6959114, 1386119 #### [facility] [address] [place] [address] Neutrophils/Leukocytes Auto (Bld) [Pure # fraction] 3.5 E9/L Normal 2.0-7.5 [facility] Comment on above: Order Comment: Order Added by Discern Expert. Performed By: #### 2 055783, 82969758, 3242626, 4642706, 6281903, 3677140 #### [facility] [address] [place] [address] BLOOD BANKOrdered By: Keila Kumar on 06-14-2023 ABO/Rh Interp Positive Invalid Interpretation Code [facility] BB Subsection BMPon 06-14-2023 Creatinine [Mass/Vol] 0.5 mg/dL Normal 0.5-1.3 [facility] Comment on above: Performed By: #### 2 521088, 65160638, 8423478, 4280025, 9861311, 7163003 #### [facility] [address] [place] [address] Urea nitrogen [Mass/Vol] 6 mg/dL Normal 5-21 [facility] Comment on above: Performed By: #### 2 633593, 17266482, 4779344, 4482231, 1206286, 9473012 #### [facility] [address] [place] [address] Urea nitrogen/Creatinine [Mass ratio] 12 No Units Normal 10-20 [facility] Comment on above: Performed By: #### 2 897507, 55022759, 3135104, 2840402, 2017036, 9947415 #### [facility] [address] [place] [address] Anion gap [Moles/Vol] 10 mmol/L Normal 6-16 [facility] Comment on above: Performed By: #### 2 134540, 35835788, 7532556, 8076654, 7467892, 9485265 #### [facility] [address] [place] [address] Calcium [Mass/Vol] 8.7 mg/dL Low 8.9-11.1 [facility] Comment on above: Performed By: #### 2 926043, 39123933, 4341296, 2326759, 3339804, 1985283 #### [facility] [address] [place] [address] Chloride [Moles/Vol] 107 mmol/L Normal 101-[address] [facility] Comment on above: Performed By: #### 2 394091, 57455822, 2925268, 1387566, 8039240, 3576389 #### [facility] [address] [place] [address] CO2 [Moles/Vol] 21 mmol/L Normal 21-31 [facility] Comment on above: Performed By: #### 2 652699, 65852147, 9430411, 8914117, 3984182, 7101896 #### [facility] [address] [place] [address] Glucose [Mass/Vol] 77 mg/dL Normal 55-199 [facility] Comment on above: Result Comment: If t his glucose result represents a fasting glucose, interpretation should refer to the following reference range: 55-99 mg/dL Performed By: #### 2 118175, 98589893, 9745685, 8369909, 9260906, 0226619 #### [facility] [address] [place] [address] Potassium [Moles/Vol] 3.8 mmol/L Normal 3.5-5.3 [facility] Comment on above: Performed By: #### 2 319924, 78156067, 2771978, 7115179, 9781997, 1835810 #### [facility] [address] [place] [address] Sodium [Moles/Vol] 134 mmol/L Low 135-145 [facility] Comment on above: Performed By: #### 2 472262, 84767933, 4405586, 8314824, 0763244, 7354951 #### [facility] [address] [place] [address] BhCG Quanton 06-14-2023 HCG.beta subunit Qn 513961 m[IU]/mL High 1-3 [facility] Comment on above: Result Comment: GEST ATIONAL AGE HCG RANGE (mIU/mL) NON- <1-3 0.2-1 WEEKS 5-50 1-2 WEEKS 50-500 2-3 WEEKS 100-5,000 3-4 WEEKS 500-10,000 4-5 WEEKS 1,000-50,000 5-6 WEEKS 10,000-100,000 6-8 WEEKS 15,000-200,000 8-12 WEEKS 10,000-100,000 Performed By: #### 2 420168 ####[facility] [address] [place] [address] CBC w/ Auto Diffon 3 Erythrocyte distribution width (RBC) [Ratio] 12.6 % Normal 10.9-14.2 [facility] Comment on above: Performed By: #### 2 263689, 94241995, 0489578, 9892269, 1157368, 7246282 #### [facility] [address] [place] [address] Hematocrit (Bld) [Volume fraction] 39.9 % Normal 34.0-46.0 [facility] Comment on above: Performed By: #### 2 781408, 32279437, 2917610, 8393553, 9640411, 9533927 #### [facility] [address] [place] [address] Hemoglobin (Bld) [Mass/Vol] 13.4 g/dL Normal 12.0-16.0 [facility] Comment on above: Performed By: #### 2 889668, 86695377, 1618810, 7261875, 2364737, 5854802 #### [facility] [address] [place] [address] MCH (RBC) [Entitic mass] 29.8 pg Normal 27.0-34.0 [facility] Comment on above: Performed By: #### 2 678756, 41585439, 4633767, 2375163, 3866849, 2577954 #### [facility] [address] [place] [address] MCHC (RBC) [Mass/Vol] 33.6 g/dL Normal 31.4-36.0 [facility] Comment on above: Performed By: #### 2 120247, 11243043, 2169908, 4684183, 3510872, 2837364 #### [facility] [address] [place] [address] MCV (RBC) [Entitic vol] 88.8 fL Normal 80.0-100.0 [facility] Comment on above: Performed By: #### 2 675361, 93470427, 7538878, 6180859, 7419996, 1782335 #### [facility] [address] [place] [address] Platelet mean volume (Bld) [Entitic vol] 8.4 fL Normal 6.4-10.8 [facility] Comment on above: Performed By: #### 2 525871, 36947501, 1511237, 0692113, 4597414, 0841890 #### [facility] [address] [place] [address] Platelets (Bld) [#/Vol] 225.0 E9/L Normal 150.0-500.0 [facility] Comment on above: Performed By: #### 2 768692, 27819869, 1023505, 1691417, 6374524, 7294544 #### [facility] [address] [place], [place] [address] RBC (Bld) [#/Vol] 4.5 E12/L Normal 4.3-5.9 [facility] Comment on above: Performed By: #### 2 879571, 11672687, 2343096, 5733006, 5417247, 7680375 #### [facility] [address] [place] [address] WBC corrected for nucl RBC Auto (Bld) [#/Vol] 5.4 E9/L Normal 4.0-11.0 [facility] Comment on above: Performed By: #### 2 664341, 15099857, 7806170, 2870180, 1251227, 8938667 #### [facility] [address] [place] [address] CHEMISTRYOrdered By: SYSTEM SYSTEM on 06-14-2023 Albumin [Mass/Vol] 3.5 g/dL Normal 3.3 - 5.0 gm/dL [facility] Remisol Albumin/Globulin [Mass ratio] 1.1 {ratio} Normal [...] 199 mg/dL [facility] Remisol HCG.beta subunit Qn 565331 m[IU]/mL High 1 - 3 mIU/mL [facility] Remisol Lipase [Catalytic activity/Vol] 28 U/L Normal 13 - 58 unit/L [facility] Remisol Potassium [Moles/Vol] 3.8 mmol/L Normal 3.5 - 5.3 mmol/L [facility] Remisol Protein [Mass/Vol] 6.8 g/dL Normal 6.0 - 7.8 gm/dL [facility] Sodium [Moles/Vol] 134 mmol/L Low 135 - 145 mmol/L [facility] Urea nitrogen [Mass/Vol] 6 mg/dL Normal 5 - 21 mg/dL [facility] Urea nitrogen/Creatinine [Mass ratio] 12 mg/mg Normal 10 - 20 [facility] Consent for Treatmenton 05-17 Consent for Treatment [id number]:12 7 Normal [facility] ED Clinical Summaryon 2022 ED Clinical Summary (Inserted Image. Maryann ble to display) [place] [id number] ED Clinical Summary Person Information Name: RONEN BROELIAS Byrd [facility] Age: 27 Years : 1995 Sex: Female Language: Bangladeshi PCP: Luis Carlos Jung MD Marital Status: Single Phone: [phone] Visit Id: Visit Reason: Abdominal pain; 12 [...] 10:35:40 06/14/2023 10:35:40 06/14/2023 10:35:40 [facility] [id number] PHYS DOC NOTES: MEDICAL INFORMATION: Prescriptions Given: [...] EDUCATION INFORMATION: Instructions: Follow up: DIAGNOSIS: Normal [facility] ED Note-Physicianon 06-14-20 ED Note-Physician [...] sent for ultrasound which is discussed with ophthalmic technician. There is an intrauterine measuring 12 [...] Patient seen and evaluated by the physician production assistant. Attending physician was present in the emergency department and supervised care. This visit was performed by both the physician and an APC. I performed all aspects of the MDM as documented. This report was transcribed using voice recognition software. Every effort was made to ensure accuracy, however, inadvertently computerized university counselor mistakes may be present. 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 Normal [facility] Comment on above: Result Comment: Elec tronically Signed By: Jos Ugalde PA-C\.br\Date and Time Signed: 06/14/23 11:58 EDT\.br\Electronically Co-Signed By: Kristian Guillermo DO\.br\Date and Time Co-Signed: 06/14/23 17:02 EDT ED Patient Education Noteon 06-14-2023 ED Patient Education Note Normal [facility] ED Patient Summaryon 023 ED Patient Summary (Inserted Image. Maryann ble to display) [place] [id number] Patient Discharge Instructions Person Information Name: SUSAN BRO Age: 27 Years Arrival Date: 06/14/2023 08:31:43 Discharge Diagnosis: Primary Care Physician: Luis Carlos Jung MD Provider Information Primary Provider: Kristian Guillermo DO [employer] Glazier:Jos Ugalde PA-C The exam and treatment you received in the Emergency Department were for an urgent problem and are not intended as complete care. It is important that you follow up with a doctor, nurse practitioner, or physician?s production assistant for ongoing care. If your symptoms become [...] opioids can be used to help relieve rgilvtok-hz-vlwypz pain and are often prescribed following a [...] be struggling with addiction, tell your health child care worker and ask for guidance or call [facility]?S National Helpline at 1-737-054-IHKG. p Source: [place] Department of Health and Human Services/Center for Disease Control & Prevention [facility] Medications Given: Medication Dose Route No medicati (more content not included)... Normal [facility] HEMATOLOGYOrdered By: SYSTEM SYSTEM on [...] 13.4 g/dL Normal 12.0 - 16.0 gm/dL FT HemeAutoSS MCH (RBC) [Entitic mass] 29.8 pg [...] Bilirubin.indirect [Mass or moles/Vol] UTC Abnormal 0.1-0.9 [facility] Comment on above: Result Comment: Resu lt verified by Discern Rule. Performed result UTC (Unable to Calculate) was sent as an Alpha code due the inability to calculate a valid numeric value. Performed By: #### 2 148815, 63955079, 4828168, 9523760, 0965058, 2865061 #### [facility] [address] [place] [address] Albumin [Mass/Vol] 3.5 g/dL Normal 3.3-5.0 [facility] Comment on above: Performed By: #### 2 679176, 60012873, 7570210, 2305615, 1066988, 8509956 #### [facility] [address] [place] [address] Albumin/Globulin (S) [Mass conc ratio] 1.1 Normal 1.1-2.2 [facility] Comment on above: Performed By: #### 2 045648, 40224985, 0551117, 8603155, 8594466, 2955517 #### [facility] [address] [place] [address] ALP [Catalytic activity/Vol] 34 Int._Unit/L Normal 21-98 [facility] Comment on above: Performed By: #### 2 895011, 44182210, 8907857, 9091069, 4560634, 1776385 #### [facility] [address] [place] [address] ALT No additional P-5'-P [Catalytic activity/Vol] 13 Int._Unit/L Normal 6-46 [facility] Comment on above: Performed By: #### 2 172824, 86945417, 8457498, 3705777, 6906221, 4352070 #### [facility] [address] [place] [address] AST [Catalytic activity/Vol] 17 Int._Unit/L Normal 5-43 [facility] Comment on above: Performed By: #### 2 721946, 76763145, 1379019, 1572475, 1439609, 5357693 #### [facility] [address] [place] [address] Bilirubin [Mass/Vol] 0.6 mg/dL Normal 0.0-1.[address] [facility] Comment on above: Performed By: #### 2 998504, 05171243, 7996189, 1480237, 0411691, 9552700 #### [facility] [address] [place] [address] Globulin (S) [Mass/Vol] 3.3 g/dL Normal 1.4-4.0 [facility] Comment on above: Performed By: #### 2 818493, 03358684, 6437575, 2104444, 5952714, 1467362 #### [facility] [address] [place] [address] Protein [Mass/Vol] 6.8 g/dL Normal 6.0-7.8 [facility] Comment on above: Performed By: #### 2 927855, 82926009, 8586352, 0052647, 5582034, 9816881 #### [facility] [address] [place] [address] Bilirubin.direct [Mass/Vol] mg/dL Normal 0.1-0.4 [facility] Comment on above: Performed By: #### 2 577076, 77584837, 1151862, 3484533, 6383864, 9023895 #### [facility] [address] [place] [address] Lipase Levelon 06-14-2023 Lipase [Catalytic activity/Vol] 28 U/L Normal 13-58 [facility] Comment on above: Performed By: #### 2 681971, 51461466, 7558017, 4934018, 5735079, 7675927 #### [facility] [address] [place] [address] Progress Note-Nurseon 2022 Progress Note-Nurse Lizet RN verbalize d she was unable to locate patient at this time Normal [facility] UA With Cult Reflexon 2022 Bacteria LM Ql (Urine sed) TRACE Normal Trace [facility] Comment on above: Performed By: #### 2 355378, 60131561, 1444735, 6412349, 0828797, 8365615 #### [facility] [address] [place] [address] Bilirubin Ql (U) Negative Normal Negative [facility] Comment on above: Performed By: #### 2 311212, 86200248, 6484555, 4866972, 8671614, 0542334 #### [facility] [address] [place] [address] Clarity (U) CLEAR Normal Clear [facility] Comment on above: Performed By: #### 2 191537, 97535662, 1876187, 2472364, 7610529, 6043063 #### [facility] [address] [place] [address] Color (U) YELLOW Normal Yellow [facility] Comment on above: Performed By: #### 2 171908, 73899971, 2851554, 3666284, 1812827, 0834585 #### [facility] [address] [place] [address] Epithelial cells.squamous LM.HPF (Urine sed) [#/Area] 3-4 Normal 0-2 [facility] Comment on above: Performed By: #### 2 011570, 99974926, 8189958, 2582512, 1616589, 9114875 #### [facility] [address] [place] [address] Glucose Test strip (U) [Mass/Vol] Negative Normal Negative [facility] Comment on above: Performed By: #### 2 844771, 80013958, 8778926, 0962116, 2351999, 9621032 #### [facility] [address] [place] [address] Hemoglobin Ql (U) Negative Normal Negative [facility] Comment on above: Performed By: #### 2 038767, 71605426, 4250315, 5147150, 8837391, 9889259 #### [facility] [address] [place] [address] Ketones (U) [Mass/Vol] Negative Normal Negative [facility] Comment on above: Performed By: #### 2 395195, 18260041, 5328625, 6957245, 3961070, 6363067 #### [facility] [address] [place] [address] [place].plasma/[place] .RBC (Bld) [Mass ratio] 0-3 Normal 0-3 [facility] Comment on above: Performed By: #### 2 179608, 53222550, 4884248, 4268586, 8929848, 5310395 #### [facility] [address] [place] [address] Mucus Ql (Urine sed) TRACE Normal Fish [facility] Comment on above: Performed By: #### 2 165658, 99181040, 9029797, 1358009, 8885017, 7642932 #### [facility] [address] [place] [address] Nitrite Ql (U) Negative Normal Negative [facility] Comment on above: Performed By: #### 2 506392, 92258771, 0233273, 6080172, 1320544, 7062223 #### [facility] [address] [place] [address] pH (U) 6.5 [pH] Invalid Interpretation Code 5.0-9.0 [facility] Comment on above: Performed By: #### 2 867445, 57334064, 5881407, 9330539, 9669565, 8495128 #### [facility] [address] [place] [address] Protein (U) [Mass/Vol] Negative Normal Negative [facility] Comment on above: Performed By: #### 2 359515, 56891161, 2571001, 3434001, 5267908, 9891560 #### [facility] [address] [place] [address] Specific gravity (U) [Rel density] 1.015 Invalid Interpretation Code 1.005-1.030 [facility] Comment on above: Performed By: #### 2 921190, 87172347, 1418535, 4152733, 9863672, 1991926 #### [facility] [address] [place] [address] Type of Urine collection method Clean Catch Normal [facility] Comment on above: Performed By: #### 2 691832, 25600863, 2733975, 1402955, 9475062, 0220349 #### [facility] [address] [place] [address] Urobilinogen Qn (U) 0.2 {Rola'U}/dL Normal 0.0-1.0 [facility] Comment on above: Performed By: #### 2 136295, 48912707, 1274537, 0837151, 9619316, 5323109 #### [facility] [address] [place] [address] WBC Auto Ql (U) TRACE Abnormal Negative [facility] Comment on above: Performed By: #### 2 316676, 16030972, 3889209, 3995159, 1947073, 4785587 #### [facility] [address] [place] [address] WBC LM.HPF (Urine sed) [#/Area] 0-5 Normal 0-5 [facility] Comment on above: Performed By: #### 2 498142, 96931454, 1380120, 2024128, 4846612, 9995700 #### [facility] [address] [place] [address] URINALYSISOrdered By: An Mccarty on 06-14-2023 Bacteria [...] AM) Normal Negative [facility] UA Auto SS [place].plasma/[place] .RBC (Bld) [Mass ratio] 0-3 /HPF Normal [...] [facility] UA Auto SS Urobilinogen Qn (U) 0.7892765 {Rola'U}/dL Normal 0.0 - 1.0 EU/dL [facility] [...] LMP : 02/21/23?? Irregular History 2 Normal [facility] eGFRon 06-14-2023 GFR/1.73 sq M.predicted among non-blacks MDRD (S/P/Bld) [Vol rate/Area] 130 mL/min/1.73 m2 Normal >=59 [facility] Comment on above: Order Comment: Order added by Discern Expert. Result Comment: Potter Or Ceramic Artist lucy kidney disease could be indicated at eGFR's of less than 60 mL/min/1.73m2. Kidney failure is indicated at less than 15 mL/min/1.73m2. Performed By: #### 2 796125, 81876114, 1932432, 5261295, 0179721, 4546787 #### [facility] [address] [place] [address] CHEMISTRYOrdered By: SYSTEM SYSTEM on 06-12-2023 TSH Qn 3.80 m[IU]/L Normal 0.34 - 5.60 mcIU/mL [facility] Remisol Consent for Treatmenton 05-16 Consent for Treatment [id number]:12 7 Normal [facility] Physician Orderon 06-12-2023 Physician Order [id number]#[id number]:12 7 Normal [facility] TSHon 06-12-2023 TSH Qn 3.80 m[IU]/L Normal 0.34-5.60 [facility] Comment on above: Performed By: #### 2 705376, 95246130, 8177161, 2960971, 6900462, 0305020 #### [facility] [address] [place] [address] BhCG Quanton 05-22-2023 HCG.beta subunit Qn 271994 m[IU]/mL High 1-3 [facility] Comment on above: Result Comment: GEST ATIONAL AGE HCG RANGE (mIU/mL) NON- <1-3 0.2-1 WEEKS 5-50 1-2 WEEKS 50-500 2-3 WEEKS 100-5,000 3-4 WEEKS 500-10,000 4-5 WEEKS 1,000-50,000 5-6 WEEKS 10,000-100,000 6-8 WEEKS 15,000-200,000 8-12 WEEKS 10,000-100,000 Performed By: #### 2 248706, 69320180, 6110319, 7669560, 8229537, 3452597 #### [facility] [address] [place] [address] Discharge Instructionson Discharge Instructions [id number]:1 27 Normal [facility] ED Clinical Summaryon 2022 ED Clinical Summary (Inserted Image. Maryann ble to display) [address] [address] ED Clinical Summary Person Information Name: SUSAN BRO [facility] Age: 27 Years : 1995 Sex: Female Language: Bangladeshi PCP: Luis Carlos Jung MD Marital Status: Single Phone: [phone] Visit Id: Visit Reason: Abdominal pain - [...] 05/21/2023 23:23:44 05/21/2023 23:23:44 05/21/2023 23:23:44 ADDRESS: [facility] [id number] PHYS DOC NOTES: MEDICAL INFORMATION: Prescriptions Given: New Medications [facility], [address] [facility] [place], [place] [id number], [phone] cephalexin (Keflex 500 mg Cap) 1 Capsules [...] EDUCATION INFORMATION: Instructions: Nonspecific Chest Pain, Adult, Bhge-lb-Hije; Nausea and Vomiting, Adult, Thef-qs-Uolo; Abdominal Pain During , Yqzy-bc-Scfe Follow up: With: Address: When: Luis Carlos HEARD, [facility] [address], [place] [address] Business (1) In 3 days 05/24/2023 Comments: [...] (nausea and vomiting); Vaginal bleeding in Normal [facility] ED Note-Physicianon 05-22-20 ED Note-Physician Basic Information Time Seen: Michael HASTINGS Tyreljimena White 05/21/2023 20:43 Chief Complaint Pt. presents to [...] and Complexity of Problems Differential Diagnosis: [] [facility] Data External documents reviewed: [] My EKG [...] day(s), # 15 cap(s), Refills(s) 0, Pharmacy: [facility], 162.6, cm, 05/21/23 20:50:00 EDT, Height/Length Dosing, 75.3, kg, 05/21/23 20:50:00 EDT, Weight Dosing famotidine, 20 mg = 2 mL, Soln-IV, IV Push, Once, Stop date 05/21/23 21:00:00 EDT, STAT, Start date 05/21/23 21:00:00 EDT, 05/21/23 21:00:00 EDT famotidine, 20 mg = 1 tab(s), Oral, Daily, # 14 tab(s), Refills(s) 0, Pharmacy: [facility], 162.6, cm, 05/21/23 20:50:00 EDT, Height/Length Dosing, 75.3, kg, 05/21/23 20:50:00 EDT, Weight Dosing ondansetron, 4 mg = 2 mL, Injection, IV Push, Once, Stop date 05/21/23 21:00:00 EDT, STAT, Start date 05/21/23 21:00:00 EDT, 05/21/23 21:00:00 EDT ondansetron, 4 mg = 1 tab(s), Oral, q8hr, # 12 tab(s), Refills(s) 0, Pharmacy: [facility], 162.6, cm, 05/21/23 20:50:00 EDT, Height/Length Dosing, 75.3, kg, 05/21/23 20:50:00 EDT, Weight Dosing Sodium Chloride 0.9% intravenous solution, 1,000 (more content not included)... Normal [facility] Comment on above: Result [...] these instructions at home: Medicines ? Take bipo-mcc-wkfznfa and prescription medicines only as told by [...] Eating a heart-healthy diet. A diet and nutrition representative (dietitian) can help you to learn healthy [...] provider. Document Revised: 12/15/2021 Document Reviewed: 12/15/2021 [employer] Patient Education ? 2022 [employer] Nausea and Vomiting, Adult Nausea is [...] Follow th (more content not included)... Normal [facility] ED Patient Summaryon 023 ED Patient Summary (Inserted Image. Maryann ble to display) [address] [address] Patient Discharge Instructions Person Information Name: SUSAN BRO Age: 27 Years Arrival Date: 05/21/2023 20:37:57 Discharge Diagnosis: Abdominal pain, acute; Chest pain; N&V (nausea and vomiting); Vaginal bleeding in Primary Care Physician: Luis Carlos Jung MD Provider Information Primary Provider: Gopi Rodriguez DO Advanced Glass Glazier:None The exam and treatment you received in the Emergency Department were for an urgent problem and are not intended as complete care. It is important that you follow up with a doctor, nurse practitioner, or physician?s production assistant for ongoing care. If your symptoms become [...] Instructions: With: Address: When: Luis Carlos Jung [address] [place] [address] Business (1) In 3 days 05/24/2023 [...] Patient Education Materials: Nonspecific Chest Pain, Adult, Ultk-yi-Lhvr; Nausea and Vomiting, Adult, Sysd-mj-Zzzu; Abdominal Pain During , Dcqu-zz-Zbqq A MESSAGE TO ALL PATIENTS REGARDING OPIOIDS PRESCRIPTION OPIOIDS: WHAT YOU NEED TO KNOW Prescription opioids can be used to help relieve gwrjqsfn-yb-cjrgoi pain and are often prescribed following a [...] dispose of unused prescription opioids: Find your [employer] drug t (more content not included)... Normal [facility] UA With Cult Reflexon 2022 Bacteria LM Ql (Urine sed) TRACE Normal Trace [facility] Comment on above: Performed By: #### 2 605517, 27656912, 6132663, 9172880, 3793321, 5925475 #### [facility] [address] [place] [address] Bilirubin Ql (U) Negative Normal Negative [facility] Comment on above: Performed By: #### 2 869559, 64548992, 9211916, 3666828, 4268886, 2053295 #### [facility] [address] [place] [address] Clarity (U) CLEAR Normal Clear [facility] Comment on above: Performed By: #### 2 907326, 98429935, 3305195, 5863336, 6159586, 5611882 #### [facility] [address] [place] [address] Color (U) DARK YELLO Abnormal Yellow [facility] Comment on above: Performed By: #### 2 287625, 97528246, 6087791, 9564292, 2000365, 8065536 #### [facility] [address] [place] [address] Epithelial cells.squamous LM.HPF (Urine sed) [#/Area] 0-2 Normal 0-2 [facility] Comment on above: Performed By: #### 2 272768, 64877301, 8690609, 6470196, 3697148, 6504797 #### [facility] [address] [place] [address] Glucose Test strip (U) [Mass/Vol] Negative Normal Negative [facility] Comment on above: Performed By: #### 2 746036, 20770562, 6191415, 2221626, 7459845, 8207000 #### [facility] [address] [place] [address] Hemoglobin Ql (U) TRACE Abnormal Negative [facility] Comment on above: Performed By: #### 2 841085, 06775041, 2659705, 1598984, 0780027, 9441908 #### [facility] [address] [place] [address] Ketones (U) [Mass/Vol] TRACE Abnormal Negative [facility] Comment on above: Performed By: #### 2 656843, 83244236, 8867676, 5468264, 5504482, 5442810 #### [facility] [address] [place] [address] [place].plasma/[place] .RBC (Bld) [Mass ratio] 4-20 Normal 0-3 [facility] Comment on above: Performed By: #### 2 025124, 97572125, 9222037, 4481789, 4548199, 9803353 #### [facility] [address] [place] [address] Mucus Ql (Urine sed) 1+ Normal [facility] Comment on above: Performed By: #### 2 545590, 22325866, 0824547, 0915246, 7415630, 5235959 #### [facility] [address] [place] [address] Nitrite Ql (U) Negative Normal Negative [facility] Comment on above: Performed By: #### 2 808220, 68077563, 6717978, 3882816, 8596936, 9161813 #### [facility] [address] [place] [address] pH (U) 6.0 [pH] Invalid Interpretation Code 5.0-9.0 [facility] Comment on above: Performed By: #### 2 481839, 60365171, 0340413, 1459163, 2192903, 4252292 #### [facility] [address] [place], [place] [address] Protein (U) [Mass/Vol] 2+ Abnormal Negative [facility] Comment on above: Performed By: #### 2 792406, 30292173, 5465203, 3502366, 3311624, 0116751 #### [facility] [address] [place] [address] Specific gravity (U) [Rel density] >=1.030 Invalid Interpretation Code 1.005-1.030 [facility] Comment on above: Performed By: #### 2 252673, 64903290, 1959274, 3706517, 3458447, 8023970 #### [facility] [address] [place] [address] Type of Urine collection method Clean Catch Normal [facility] Comment on above: Performed By: #### 2 225016, 90925972, 4652481, 3329215, 8057953, 2547933 #### [facility] [address] [place] [address] Urobilinogen Qn (U) 0.2 {Rola'U}/dL Normal 0.0-1.0 [facility] Comment on above: Performed By: #### 2 619253, 01618853, 6580080, 3028510, 0800797, 6758943 #### [facility] [address] [place] [address] WBC Auto Ql (U) Negative Normal Negative [facility] Comment on above: Performed By: #### 2 346870, 72238599, 5025204, 7757811, 0351981, 0180081 #### [facility] [address] [place] [address] WBC LM.HPF (Urine sed) [#/Area] 0-5 Normal 0-5 [facility] Comment on above: Performed By: #### 2 521745, 40267181, 5660869, 6672618, 7096034, 8894421 #### [facility] [address] [place] [address] US 1st Trimesteron 05-22-2023 US 1st Trimester [...] corresponding gestational age +/- 1 week are: [place] Rump Length: 2.2 cm Composite Ultrasound Age: [...] 1 Transabdominal Ultrasound Performed FHR (bpm) 167 [place] Rump Length (in cm) 2.22 Normal [facility] Auto Diffon 05-21-2023 Basophils/100 WBC (Bld) 1.0 % Normal 0.0-2.0 [facility] Comment on above: Order Comment: Order Added by Discern Expert. Performed By: #### 2 249320, 93579108, 4690880, 2364217, 1531493, 4764114 #### [facility] [address] [place] [address] Basophils/Leukocytes Auto (Bld) [Pure # fraction] 0.1 E9/L Normal 0.0-0.2 [facility] Comment on above: Order Comment: Order Added by Discern Expert. Performed By: #### 2 230348, 79055651, 0923664, 5669089, 3693110, 5842440 #### [facility] [address] [place] [address] Eosinophils/100 WBC (Bld) 1.5 % Normal 0.0-8.0 [facility] Comment on above: Order Comment: Order Added by Discern Expert. Performed By: #### 2 038100, 92657247, 2918542, 4598894, 7574854, 4334221 #### [facility] [address] [place] [address] Eosinophils/Leukocytes Auto (Bld) [Pure # fraction] 0.1 E9/L Normal 0.0-0.5 [facility] Comment on above: Order Comment: Order Added by Discern Expert. Performed By: #### 2 950452, 73435853, 0095927, 4814042, 0205813, 3668448 #### [facility] [address] [place] [address] Lymphocytes/100 WBC (Bld) 36.6 % Normal 14.0-50.0 [facility] Comment on above: Order Comment: Order Added by Discern Expert. Performed By: #### 2 709966, 78871465, 3128535, 4455543, 1056113, 1188640 #### [facility] [address] [place] [address] Lymphocytes/Leukocytes Auto (Bld) [Pure # fraction] 2.5 E9/L Normal 1.0-4.0 [facility] Comment on above: Order Comment: Order Added by Discern Expert. Performed By: #### 2 072239, 47823582, 3752416, 4322066, 9001634, 5723876 #### [facility] [address] [place] [address] Monocytes/100 WBC (Bld) 8.2 % Normal 4.0-14.0 [facility] Comment on above: Order Comment: Order Added by Discern Expert. Performed By: #### 2 626527, 51078632, 8481698, 8227368, 2716602, 7434493 #### [facility] [address] [place] [address] Monocytes/Leukocytes Auto (Bld) [Pure # fraction] 0.6 E9/L Normal 0.2-1.0 [facility] Comment on above: Order Comment: Order Added by Discern Expert. Performed By: #### 2 217134, 67143104, 4124707, 4171063, 2151450, 1659387 #### [facility] [address] [place] [address] Neutrophils/100 WBC (Bld) 52.7 % Normal 36.0-75.0 [facility] Comment on above: Order Comment: Order Added by Discern Expert. Performed By: #### 2 178777, 41697455, 5937471, 7341057, 1941467, 9147146 #### [facility] [address] [place] [address] Neutrophils/Leukocytes Auto (Bld) [Pure # fraction] 3.6 E9/L Normal 2.0-7.5 [facility] Comment on above: Order Comment: Order Added by Discern Expert. Performed By: #### 2 411866, 43589904, 1357581, 8287392, 7657340, 0728110 #### [facility] [address] [place] [address] BMPon 05-21-2023 Creatinine [Mass/Vol] 0.7 mg/dL Normal 0.5-1.3 [facility] Comment on above: Performed By: #### 2 079689, 34064646, 0278299, 1153831, 0885037, 6746476 #### [facility] [address] [place] [address] Urea nitrogen [Mass/Vol] 8 mg/dL Normal 5-21 [facility] Comment on above: Performed By: #### 2 041144, 10159506, 3011903, 6086018, 0627371, 7392167 #### [facility] [address] [place] [address] Urea nitrogen/Creatinine [Mass ratio] 11 No Units Normal 10-20 [facility] Comment on above: Performed By: #### 2 617131, 78337742, 3261532, 4845329, 0796322, 5636880 #### [facility] [address] [place] [address] Anion gap [Moles/Vol] 12 mmol/L Normal 6-16 [facility] Comment on above: Performed By: #### 2 582136, 37615920, 2250097, 9643213, 4971371, 4993898 #### [facility] [address] [place] [address] Calcium [Mass/Vol] 9.2 mg/dL Normal 8.9-11.1 [facility] Comment on above: Performed By: #### 2 995117, 81113440, 5677940, 8765505, 3770749, 4846730 #### [facility] [address] [place] [address] Chloride [Moles/Vol] 104 mmol/L Normal 101-[address] [facility] Comment on above: Performed By: #### 2 389399, 07300676, 7412994, 9963394, 1642759, 4884999 #### [facility] [address] [place] [address] CO2 [Moles/Vol] 24 mmol/L Normal 21-31 [facility] Comment on above: Performed By: #### 2 592206, 03416255, 1451015, 9046660, 9271219, 9090297 #### [facility] [address] [place] [address] Glucose [Mass/Vol] 87 mg/dL Normal 55-199 [facility] Comment on above: Result Comment: If t his glucose result represents a fasting glucose, interpretation should refer to the following reference range: 55-99 mg/dL Performed By: #### 2 018474, 16338443, 6234086, 0695715, 8259553, 0544467 #### [facility] [address] [place] [address] Potassium [Moles/Vol] 3.2 mmol/L Low 3.5-5.3 [facility] Comment on above: Performed By: #### 2 363045, 68595928, 0528675, 5806293, 7076358, 3727629 #### [facility] [address] [place] [address] Sodium [Moles/Vol] 137 mmol/L Normal 135-145 [facility] Comment on above: Performed By: #### 2 523297, 06142191, 7537662, 3195000, 8753643, 8490398 #### [facility] [address] [place] [address] CBC w/ Auto Diffon 3 Erythrocyte distribution width (RBC) [Ratio] 13.3 % Normal 10.9-14.2 [facility] Comment on above: Performed By: #### 2 156067, 79926127, 9705311, 5666400, 6314710, 6961633 #### [facility] [address] [place] [address] Hematocrit (Bld) [Volume fraction] 39.0 % Normal 34.0-46.0 [facility] Comment on above: Performed By: #### 2 302944, 94499387, 0492950, 4269997, 8649235, 6497280 #### [facility] [address] [place] [address] Hemoglobin (Bld) [Mass/Vol] 13.3 g/dL Normal 12.0-16.0 [facility] Comment on above: Performed By: #### 2 611078, 69132152, 1017247, 8656868, 6003730, 0444884 #### [facility] [address] [place] [address] MCH (RBC) [Entitic mass] 30.3 pg Normal 27.0-34.0 [facility] Comment on above: Performed By: #### 2 147021, 29889120, 4691703, 1773138, 9040249, 3865097 #### [facility] [address] [place] [address] MCHC (RBC) [Mass/Vol] 34.2 g/dL Normal 31.4-36.0 [facility] Comment on above: Performed By: #### 2 765026, 57808036, 0461805, 3625687, 8573905, 2268803 #### [facility] [address] [place] [address] MCV (RBC) [Entitic vol] 88.7 fL Normal 80.0-100.0 [facility] Comment on above: Performed By: #### 2 780395, 57882993, 1336413, 3087417, 2144638, 5094713 #### [facility] [address] [place] [address] Platelet mean volume (Bld) [Entitic vol] 7.8 fL Normal 6.4-10.8 [facility] Comment on above: Performed By: #### 2 901400, 73711501, 5060835, 0898691, 7277257, 1946388 #### [facility] [address] [place] [address] Platelets (Bld) [#/Vol] 225.0 E9/L Normal 150.0-500.0 [facility] Comment on above: Performed By: #### 2 764203, 72211656, 9157655, 1045681, 5388983, 5948888 #### [facility] [address] [place] [address] RBC (Bld) [#/Vol] 4.4 E12/L Normal 4.3-5.9 [facility] Comment on above: Performed By: #### 2 903176, 02407737, 1924924, 2199931, 5292997, 2109686 #### [facility] [address] [place] [address] WBC corrected for nucl RBC Auto (Bld) [#/Vol] 6.8 E9/L Normal 4.0-11.0 [facility] Comment on above: Performed By: #### 2 549850, 40755294, 0108556, 4443168, 0133108, 1289593 #### [facility] [address] [place] [address] CHEMISTRYOrdered By: SYSTEM SYSTEM on 05-21-2023 HCG.beta subunit Qn 481096 m[IU]/mL High 1 - 3 mIU/mL [facility] [...] 120 mL/min/1.73 m2 Normal >=59mL/min/ 1.73 m2 [facility] Chem S Globulin (S) [Mass/Vol] 3.1 g/dL [...] Remisol Consent for Treatmenton Consent for Treatment [id number]#1.00CD:12 7 Normal [facility] HEMATOLOGYOrdered By: SYSTEM SYSTEM on [...] 225.0 E9/L Normal 150.0 - 500.0 E9/L [facility] HemeAutoSS RBC (Bld) [#/Vol] 4.4 E12/L Normal 4.3 - 5.9 E12/L [facility] HemeAutoSS WBC corrected for nucl RBC Auto (Bld) [#/Vol] 6.8 E9/L Normal 4.0 - 11.0 E9/L [facility] HemeAutoSS Hep Func Panelon 05-21-2023 Bilirubin.indirect [Mass or moles/Vol] UT Abnormal 0.1-0.9 [facility] Comment on above: Result Comment: Resu lt verified by Discern Rule. Performed result [facility] (Unable to Calculate) was sent as an Alpha code due the inability to calculate a valid numeric value. Performed By: #### 2 667713, 36749964, 1616307, 1012017, 1275967, 6491554 #### [facility] [address] [place] [address] Albumin [Mass/Vol] 3.8 g/dL Normal 3.3-5.0 [facility] Comment on above: Performed By: #### 2 265126, 86798077, 5254607, 0973611, 0711014, 1014889 #### [facility] [address] [place] [address] Albumin/Globulin (S) [Mass conc ratio] 1.2 Normal 1.1-2.2 [facility] Comment on above: Performed By: #### 2 060735, 45677228, 5067427, 6300249, 7784333, 9639985 #### [facility] [address] [place] [address] ALP [Catalytic activity/Vol] 42 Int._Unit/L Normal 21-98 [facility] Comment on above: Performed By: #### 2 160622, 58681397, 1434564, 0462122, 4797567, 0916261 #### [facility] [address] [place] [address] ALT No additional P-5'-P [Catalytic activity/Vol] 13 Int._Unit/L Normal 6-46 [facility] Comment on above: Performed By: #### 2 389135, 60713741, 5884006, 8913261, 3951273, 2878176 #### [facility] [address] [place] [address] AST [Catalytic activity/Vol] 14 Int._Unit/L Normal 5-43 [facility] Comment on above: Performed By: #### 2 622916, 18622659, 6296248, 1184437, 3298182, 4477487 #### [facility] [address] [place] [address] Bilirubin [Mass/Vol] 0.5 mg/dL Normal 0.0-1.[address] [facility] Comment on above: Performed By: #### 2 517859, 49681526, 6688947, 3944796, 0446814, 0409990 #### [facility] [address] [place] [address] Globulin (S) [Mass/Vol] 3.1 g/dL Normal 1.4-4.0 [facility] Comment on above: Performed By: #### 2 157326, 97827560, 9495717, 0774847, 8793779, 7093829 #### [facility] [address] [place] [address] Protein [Mass/Vol] 6.9 g/dL Normal 6.0-7.8 [facility] Comment on above: Performed By: #### 2 628929, 53844744, 5317157, 3286332, 6930285, 3050837 #### [facility] [address] [place] [address] Bilirubin.direct [Mass/Vol] mg/dL Normal 0.1-0.4 [facility] Comment on above: Performed By: #### 2 643102, 55610308, 9486138, 2395217, 3515361, 7185601 #### [facility] [address] [place] [address] Lipase Levelon 05-21-2023 Lipase [Catalytic activity/Vol] 31 U/L Normal 13-58 [facility] Comment on above: Performed By: #### 2 750081, 16644820, 0236537, 8161434, 3993584, 4433307 #### [facility] [address] [place] [address] Troponin 0 Hr.on 05-21-2023 Troponin I.cardiac [Mass/Vol] 2.50 pg/mL Low 10.10-27.10 [facility] Comment on above: Result Comment: The 95% CI (Confidence Interval) PPV (Positive Predictive Value) for myocardial infarction in females is 38 pg/mL, in males 51 pg/mL. The results should be used in conjunction with clinical conditions of myocardial infarction. (Access High Sensitivity Troponin I Instructions For Use, [employer], May 2018) Performed By: #### 2 520104, 31341176, 3347116, 7453547, 5149326, 9430087 #### [facility] [address] [place] [address] URINALYSISOrdered By: Jose Miguel nelson on 05-21-2023 [...] Interpretation Code Negative [facility] UA Auto SS [place].plasma/[place] .RBC (Bld) [Mass ratio] 4-20 /HPF Normal [...] FT UA Auto SS Urobilinogen Qn (U) 0.0925072 {Rola'U}/dL Normal 0.0 - 1.0 EU/dL [facility] UA Auto SS WBC Auto Ql (U) Negative (05/21/23 10:17 PM) Normal Negative [facility] UA Auto SS WBC LM.HPF (Urine sed) [#/Area] 0-5 /HPF Normal 0-5/HPF [facility] UA Auto SS eGFRon 05-21-2023 GFR/1.73 sq M.predicted among non-blacks MDRD (S/P/Bld) [Vol rate/Area] 120 mL/min/1.73 m2 Normal >=59 [facility] Comment on above: Order Comment: Order added by Discern Expert. Result Comment: [employer] Artist lucy kidney disease could be indicated at eGFR's of less than 60 mL/min/1.73m2. Kidney failure is indicated at less than 15 mL/min/1.73m2. Performed By: #### 2 448702, 53939059, 3575479, 8946206, 2269095, 1575607 #### [facility] [address] [place] [address] PAP [id number] 05-03-2023 C. trachomatis rRNA MAHAD+probe Ql (Cvx) Negative Invalid Interpretation Code Negative [facility] Comment on above: Performed By: #### 2 938696, 50121717, 0272162, 3559002, 2424272, 7953129 #### [facility] [address] [place] [address] Cytology report Cyto stain Doc (Cvx/Vag) Note Invalid Interpretation Code [facility] Comment on above: Result Comment: TEST S RESULT FLAG UNITS REF RANGE LAB Clinician Provided Cytology Information Source.............Endocervix No. of containers..01 ThinPrep Vial DIAGNOSIS: 01 NEGATIVE FOR INTRAEPITHELIAL LESION OR MALIGNANCY. Specimen adequacy: 01 Satisfactory for evaluation. Endocervical and/or squamous metaplastic cells (endocervical component) are present. Performed by: Serena Shea, Charcoal [employer] ([facility]) . 01 Note: Note 01 The [...] <-Panic Low,>-Panic High,A-Abnormal,AA-Critical Abnormal Performed at: [address] [address] Joya Walton MD, Performed By: #### 2 275323, 68246925, 7849487, 6125992, 6915898, 0921229 #### [facility] [address] [place] [address] N. gonorrhoeae rRNA MAHAD+probe Ql (Cvx) Negative Invalid Interpretation Code Negative [facility] Comment on above: Result Comment: Perf ormed at: [facility] [id number] MD Anton Hinson Performed at: =[facility] [id number] MD Anton Hinson Performed By: #### 2 981173, 74765897, 4926944, 1943402, 6580076, 0915622 #### [facility] [address] [place] [address] C Urineon 05-02-2023 Bacteria identified Cx Nom [...] Locations R1: This test was performed at: [facility], [address] [place] [address], [address] , , [facility] Comment on above: Performed By: #### 2 436647, 10263605, 0343115, 6454561, 9244264, 0188624 #### [facility] [address] [place] [address] HIV Screen 4th Generation wR fxon 05-01-2023 HIV 1+2 Ab+HIV1 p24 Ag IA Ql Non-Reactive Invalid Interpretation Code Non Reactive [facility] Comment on above: Result Comment: HIV Negative HIV-1/HIV-2 antibodies and HIV-1 p24 antigen were NOT detected. There is no laboratory evidence of HIV infection. Performed at: [address] [id number] PhD [facility] [place] Performed By: #### 2 259351, 85563703, 1343282, 6985490, 9638607, 0433987 #### [facility] [address] [place] [address] Hep Bs Agon 05-01-2023 HBV surface Ag IA Ql Negative Invalid Interpretation Code Negative [facility] Comment on above: Result Comment: Perf ormed at: [address] [id number] PhD [facility] Performed By: #### 2 542041, 17355299, 8687593, 1441431, 7692311, 9654717 #### [facility] [address] [place] [address] RPR with Conf Rfxon 05-01-20 23 Reagin Ab RPR Ql (S) Non-Reactive Invalid Interpretation Code Non Reactive [facility] Comment on above: Result Comment: Perf ormed at: [address] [id number] PhD [facility] Performed By: #### 2 907463, 86442365, 1315303, 2713240, 1709032, 9026969 #### [facility] [address] [place] [address] Rubella IgGon 05-01-2023 Rubella virus IgG Qn (S) [IU]/mL Low Immune >0.99 [facility] Comment on above: Result Comment: Non- immune <0.90 Equivocal 0.90 - 0.99 Immune >0.99 Performed at: [address] [place] [id number] PhD [facility] Performed By: #### 2 317135, 81747982, 2091297, 8982034, 0366022, 0176273 #### [facility] [address] [place] [address] ABO/Rhon 04-30-2023 ABO/Rh Positive Invalid Interpretation Code [facility] Comment on above: Performed By: #### 2 653168, 04226315 ####[facility] [address] [place] [address] ABSCon 04-30-2023 ABSC Gel Interp Negative Normal [facility] Comment on above: Performed By: #### 2 845566, [id number] ####[facility] [address] [place] [address] BLOOD BANKOrdered By: Diamond Junior on 04-30-2023 ABO/Rh Interp Positive Invalid Interpretation Code [facility] BB Subsection ABSC Gel Interp Negative (04/30/23 9:30 AM) Normal [facility] BB Subsection BhCG Quanton 04-30-2023 [place] [address] m[IU]/mL High 1-3 [facility] Comment on above: Result Comment: GEST ATIONAL AGE HCG RANGE (mIU/mL) NON- <1-3 0.2-1 WEEKS 5-50 1-2 WEEKS 50-500 2-3 WEEKS 100-5,000 3-4 WEEKS 500-10,000 4-5 WEEKS 1,000-50,000 5-6 WEEKS 10,000-100,000 6-8 WEEKS 15,000-200,000 8-12 WEEKS 10,000-100,000 Performed By: #### 2 427742, 49710923, 6808155, 0474534, 2720986, 1630177 #### [facility] [address] [place] [address] CBC w/Indiceson 04-30-2023 Erythrocyte distribution width (RBC) [Ratio] 13.7 % Normal 10.9-14.2 [facility] Comment on above: Performed By: #### 2 679617, 97544306, 2555608, 8618079, 6745104, 6084867 #### [facility] [address] [place] [address] Hematocrit (Bld) [Volume fraction] 40.7 % Normal 34.0-46.0 [facility] Comment on above: Performed By: #### 2 652903, 76169255, 8377927, 8183924, 9676567, 6416779 #### [facility] [address] [place] [address] Hemoglobin (Bld) [Mass/Vol] 13.8 g/dL Normal 12.0-16.0 [facility] Comment on above: Performed By: #### 2 936311, 13578259, 0890285, 5340538, 0061002, 8090106 #### [facility] [address] [place] [address] MCH (RBC) [Entitic mass] 30.5 pg Normal 27.0-34.0 [facility] Comment on above: Performed By: #### 2 841983, 31300063, 4642566, 4773726, 0801969, 5837687 #### [facility] [address] [place] [address] MCHC (RBC) [Mass/Vol] 33.9 g/dL Normal 31.4-36.0 [facility] Comment on above: Performed By: #### 2 243068, 64156021, 5818573, 4176556, 6623084, 3888618 #### [facility] [address] [place] [address] MCV (RBC) [Entitic vol] 89.9 fL Normal 80.0-100.0 [facility] Comment on above: Performed By: #### 2 434071, 01409015, 2474781, 5517773, 2919350, 0090399 #### [facility] [address] [place] [address] Platelet mean volume (Bld) [Entitic vol] 8.2 fL Normal 6.4-10.8 [facility] Comment on above: Performed By: #### 2 058455, 22216993, 3866905, 8890695, 5236387, 4453650 #### [facility] [address] [place] [address] Platelets (Bld) [#/Vol] 279.0 E9/L Normal 150.0-500.0 [facility] Comment on above: Performed By: #### 2 194848, 38697044, 6110349, 8175226, 2214280, 9101998 #### [facility] [address] [place] [address] RBC (Bld) [#/Vol] 4.5 E12/L Normal 4.3-5.9 [facility] Comment on above: Performed By: #### 2 137034, 58221029, 8673260, 4971317, 4179747, 9989243 #### [facility] [address] [place] [address] WBC corrected for nucl RBC Auto (Bld) [#/Vol] 5.8 E9/L Normal 4.0-11.0 [facility] Comment on above: Performed By: #### 2 330542, 06073197, 7591847, 5621988, 6877543, 8936369 #### [facility] [address] [place] [address] CHEMISTRYOrdered By: SYSTEM SYSTEM on 04-30-2023 [place] [address] m[IU]/mL High 1 - 3 mIU/mL [facility] Remisol Consent for Treatmenton 04-14 Consent for Treatment [id number]#1.00CD:12 7 Normal [facility] HEMATOLOGYOrdered By: Temi Romero on [...] 4.0 - 11.0 E9/L FT HemeAutoSS PAP [id number] 04-30-2023 Collection Technique BRUSH-SPATULA Normal [facility] Comment on above: Performed By: #### 2 649521, 29946724, 1763790, 0949389, 4703268, 8496891 #### [facility] [address] [place] [address] Gynecological Body Site ENDOCERVIX Normal [facility] Comment on above: Performed By: #### 2 101805, 55180133, 7313310, 8726395, 3442259, 4154410 #### [facility] [address] [place] [address] Physician Orderon 04-30-2023 Physician Order [id number]#1.00CD:1 27 Normal [facility] Physician Order [id number]#1.00CD:1 27 Normal [facility] BhCG Quanton 04-26-2023 [place] [address] m[IU]/mL High 1-3 [facility] Comment on above: Result Comment: GEST ATIONAL AGE HCG RANGE (mIU/mL) NON- <1-3 0.2-1 WEEKS 5-50 1-2 WEEKS 50-500 2-3 WEEKS 100-5,000 3-4 WEEKS 500-10,000 4-5 WEEKS 1,000-50,000 5-6 WEEKS 10,000-100,000 6-8 WEEKS 15,000-200,000 8-12 WEEKS 10,000-100,000 Performed By: #### 2 654951, 41937813, 3282888, 5603188, 1768642, 1766627 #### [facility] [address] [place], [place] [address] CHEMISTRYOrdered By: SYSTEM SYSTEM on 04-26-2023 HCG.beta subunit Qn m[IU]/mL High 1 - 3 mIU/mL [facility] Remisol Consent for Treatmenton 04-14 Consent for Treatment [id number]#1.00CD:12 7 Normal [facility] Discharge Instructionson Discharge Instructions [id number]#1.00CD:1 27 Normal [facility] ED Clinical Summaryon 2022 ED Clinical Summary (Inserted Image. Maryann ble to display) [address] [address] ED Clinical Summary Person Information Name: SUSAN BRO [facility] Age: 27 Years : 1995 Sex: Female Language: Bangladeshi PCP: THANG MILLAN CNP Marital Status: Single Phone: [phone] Visit Id: Visit Reason: Abdominal pain - [...] 04/26/2023 11:11:44 04/26/2023 11:11:44 ADDRESS: [address] [facility] [id number] [facility] DOC NOTES: MEDICAL INFORMATION: Prescriptions Given: Medications [...] up: With: Address: When: Luis Carlos Jung [address] [place] [address] [place], [facility] [address], [place] [address] Business () In 3 days 04/29/2023 DIAGNOSIS: Abdominal pain; Normal [facility] ED Note-Physicianon 04-26-20 ED Note-Physician [...] no infection. Ultrasound was obtained discussed with ophthalmic technician. There is intrauterine measuring around 5 weeks. No gross abnormality. Results are discussed the patient, she is resting comfortably and is discharged home to follow-up with 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. Patient was encouraged to return to the [...] EDT [address] [place] [address]- Business (1) Additional Instructions: Patient Education Abdominal Pain During Attestation Patient seen and evaluated by the physician production assistant. Attending physician was present in the emergency department and supervised care. This visit was performed by both the physician and an APC. I performed all aspects of the MDM as documented. This report was transcribed using voice recognition software. Every effort was made to ensure accuracy, however, inadvertently computerized university counselor mistakes may be present. Appropriate healthcare PPE [...] or in school, 07/31/2022 Employed, Work/School description: [employer] 09/11/2022 Substance Abuse - Denies Substance Abuse, 08/08/2018 Tobacco - Denies Tobacco Use, 01/31/2023 5-9 cigarett (more content not included)... Normal [facility] Comment on above: Result [...] keep your urine pale yellow. ? Take uelw-pvv-lnzsbsd and prescription medicines only as told by [...] Reviewed: 06/14/2021 Elsevier Patient Education ? 2022 [employer] Normal [facility] ED Patient Summaryon 023 ED Patient Summary (Inserted Image. Maryann ble to display) [address] [address] Patient Discharge Instructions Person Information Name: SUSAN BRO Age: 27 Years Arrival Date: 04/26/2023 08:50:01 Discharge Diagnosis: Abdominal pain; Primary Care Physician: THANG MILLAN CNP Provider Information Primary Provider: Laura Noel M.D. Advanced Glass Glazier:Jos Ugalde PA-C The exam and treatment you received in the Emergency Department were for an urgent problem and are not intended as complete care. It is important that you follow up with a doctor, nurse practitioner, or physician?s production assistant for ongoing care. If your symptoms become worse or you do not improve as expected and you are unable to reach your usual health care provider, you should return to the Emergency Department. We are available 24 hours a day. SUSAN BRO has been given the following list of patient education materials, prescriptions and follow-up instructions: Follow-up Instructions: With: Address: When: [address], [facility] [address], [place] [address] Business (1) In 3 days 04/29/2023 In the event that this physician does not participate in your insurance network, please consult with your insurance company to find a nearby participating provider. Patient Education Materials: Abdominal Pain During A MESSAGE TO ALL PATIENTS REGARDING OPIOIDS PRESCRIPTION OPIOIDS: WHAT YOU NEED TO KNOW Prescription opioids can be used to help relieve vrnucvtg-ed-xfdron pain and are often prescribed following a [...] be struggling with addiction, tell your health child care worker and ask for guidance or call SAMHSA?S National Helpline (more content not included)... Normal [facility] UA With Cult Reflexon 2022 Bilirubin Ql (U) Negative Normal Negative [facility] Comment on above: Performed By: #### 2 793172, [id number], 0476272, 5534015, 2759884, 0576218 #### [facility] [address] [place] [address] Clarity (U) CLEAR Normal Clear [facility] Comment on above: Performed By: #### 2 891370, [id number], 2860920, 3452316, 7625203, 5543492 #### [facility] [address] [place] [address] Color (U) YELLOW Normal Yellow [facility] Comment on above: Performed By: #### 2 800347, 15821832, 5042368, 8411850, 3288495, 5612089 #### [facility] [address] [place] [address] Crystals LM Ql (Urine sed) Present Normal [facility] Comment on above: Performed By: #### 2 773167, 50788121, 3353521, 3814219, 3015822, 7879435 #### [facility] [address] [place] [address] Epithelial cells.squamous LM.HPF (Urine sed) [#/Area] 0-2 Normal 0-2 [facility] Comment on above: Performed By: #### 2 927929, 55579695, 7858528, 7843925, 1988333, 7500450 #### [facility] [address] [place] [address] Glucose Test strip (U) [Mass/Vol] Negative Normal Negative [facility] Comment on above: Performed By: #### 2 948900, 18110192, 3763038, 4235664, 4932320, 5765155 #### [facility] [address] [place] [address] Hemoglobin Ql (U) Negative Normal Negative [facility] Comment on above: Performed By: #### 2 907114, 95251909, 6370427, 8040557, 1740832, 5968546 #### [facility] [address] [place] [address] Ketones (U) [Mass/Vol] Negative Normal Negative [facility] Comment on above: Performed By: #### 2 462875, 10273939, 4004495, 8840669, 2638237, 4026396 #### [facility] [address] [place] [address] [place].plasma/[place] .RBC (Bld) [Mass ratio] 0-3 Normal 0-3 [facility] Comment on above: Performed By: #### 2 206499, 27386468, 0394128, 1948675, 2120979, 5536605 #### [facility] [address] [place] [address] Mucus Ql (Urine sed) 2+ Normal [facility] Comment on above: Performed By: #### 2 066527, 18735598, 9779054, 3054629, 8393802, 9545264 #### [facility] [address] [place] [address] Nitrite Ql (U) Negative Normal Negative [facility] Comment on above: Performed By: #### 2 199326, 78169770, 4326544, 7949046, 3425662, 2309941 #### [facility] [address] [place] [address] pH (U) 8.5 [pH] Invalid Interpretation Code 5.0-9.0 [facility] Comment on above: Performed By: #### 2 567659, 36168176, 5090628, 4335039, 6356792, 6560681 #### [facility] [address] [place] [address] Protein (U) [Mass/Vol] Negative Normal Negative [facility] Comment on above: Performed By: #### 2 854326, 36940627, 4411423, 9694472, 4447035, 1979425 #### [facility] [address] [place] [address] Specific gravity (U) [Rel density] 1.015 Invalid Interpretation Code 1.005-1.030 [facility] Comment on above: Performed By: #### 2 155418, 42664245, 0105042, 9169118, 9354760, 9461299 #### [facility] [address] [place] [address] Type of Urine collection method Clean Catch Normal [facility] Comment on above: Performed By: #### 2 428694, 85791260, 5938304, 6532878, 8341810, 9265013 #### [facility] [address] [place] [address] Urobilinogen Qn (U) 1.0 {Rola'U}/dL Normal 0.0-1.0 [facility] Comment on above: Performed By: #### 2 928873, 81769906, 5358560, 0872535, 3034150, 4661946 #### [facility] [address] [place] [address] WBC Auto Ql (U) Negative Normal Negative [facility] Comment on above: Performed By: #### 2 082631, 89979812, 4431413, 6461034, 1698990, 1791125 #### [facility] [address] [place] [address] WBC LM.HPF (Urine sed) [#/Area] 0-5 Normal 0-5 [facility] Comment on above: Performed By: #### 2 121029, 23341812, 4870756, 9243490, 4027177, 8497051 #### [facility] [address] [place] [address] URINALYSISOrdered By: An Lassiter on 04-26-2023 Bilirubin [...] AM) Normal Negative [facility] UA Auto SS [place].plasma/[place] .RBC (Bld) [Mass ratio] 0-3 /HPF Normal 0-3/HPF [facility] UA Auto SS Mucus Ql (Urine sed) 2+ (04/26/23 9:15 AM) Normal [facility] UA Auto SS Nitrite Ql (U) Negative (04/26/23 9:15 AM) Normal Negative [facility] UA Auto SS pH (U) 8.5 *NA* (04/26/23 9:15 AM) Invalid Interpretation Code 5.0 - 9.0 [facility] UA Auto SS Protein (U) [Mass/Vol] Negative (04/26/23 9:15 AM) Normal Negative [facility] UA Auto SS Specific gravity (U) [Rel density] 1.015 *NA* (04/26/23 9:15 AM) Invalid Interpretation Code 1.005 - 1.030 [facility] UA Auto SS UA Spec Desc Clean Catch (04/26/23 9:15 AM) Normal [facility] UA Auto SS Urobilinogen Qn (U) 1.7014798 {Rola'U}/dL Normal 0.0 - 1.0 EU/dL [facility] UA Auto SS WBC Auto Ql (U) Negative (04/26/23 9:15 AM) Normal Negative [facility] UA Auto SS WBC LM.HPF (Urine sed) [#/Area] 0-5 /HPF Normal 0-5/HPF [facility] UA Auto SS US 1st Trimesteron 04-26-2023 [...] 02/21/23 Irregular History 2 Para 1 Normal [facility] US Transvaginalon 04-26-2023 US Transvaginal Exam Date/Time: 04/26/2023 10:50 EDT Reason for Exam: Pain Report Refer to concurrent first trimester pelvic ultrasound. Ordering Provider: Jos Ugalde FINAL REPORT Dictated: 04/26/2023 11:19 am Ladarius Davis MD Signed (Electronic Signature): 04/26/2023 11:19 am Signed by: Ladarius Davis MD Transcribed by: RINKU Technologist: CASANDRA Tejada [facility] CHEMISTRYOrdered By: SYSTEM SYSTEM on [...] rate/Area] mL/min/1.73 m2 Normal >=59mL/min/ 1.73 m2 [facility] Chem S Glucose [Mass/Vol] 84 mg/dL Normal [...] hCG Ql Negative (01/31/23 10:14 AM) Normal [facility] Man Sero URINALYSISOrdered By: Jeanette Castle on [...] AM) Normal Negative [facility] UA Auto SS [place].plasma/[place] .RBC (Bld) [Mass ratio] 0-3 /HPF Normal [...] [facility] UA Auto SS Urobilinogen Qn (U) 0.4397438 {Rola'U}/dL Normal 0.0 - 1.0 EU/dL [facility] [...] AM) Normal Negative [facility] UA Auto SS [place].plasma/[place] .RBC (Bld) [Mass ratio] 0-3 /HPF Normal [...] [facility] UA Auto SS Urobilinogen Qn (U) 0.7010155 {Rola'U}/dL Normal 0.0 - 1.0 EU/dL [facility] [...] PM) Normal Negative [facility] UA Auto SS [place].plasma/[place] .RBC (Bld) [Mass ratio] 0-3 /HPF Normal [...] Desc Clean Catch (09/12/22 8:15 PM) Normal [facility] UA Auto SS Urobilinogen Qn (U) 0.7940850 {Rola'U}/dL Normal 0.0 - 1.0 EU/dL [facility] UA Auto SS WBC Auto Ql (U) Negative (09/12/22 8:15 PM) Normal Negative [facility] UA Auto SS WBC LM.HPF (Urine sed) [#/Area] 0-5 /HPF Normal 0-5/HPF [facility] UA Auto SS CHEMISTRYOrdered By: SYSTEM SYSTEM [...] rate/Area] mL/min/1.73 m2 Normal >=59mL/min/ 1.73 m2 [facility] Chem S Glucose [Mass/Vol] 87 mg/dL Normal [...] 8 pg/mL Normal 5 - 80 pg/mL [facility] HemeManSS COAGULATIONOrdered By: Yamile Li on 09-05-2022 aPTT Coag (PPP) [Time] 27.1 s Normal 25.1 - 36.5 second(s) [facility] Auto Coag INR Coag (PPP) [Relative time] 0.9 {INR} Invalid Interpretation Code [facility] Auto Coag PT Coag (PPP) [Time] 10.3 s Normal 9.4 - 1 2.5 second(s) [facility] Auto Coag HEMATOLOGYOrdered By: SYSTEM SYSTEM on [...] 12.3 g/dL Normal 12.0 - 16.0 gm/dL FT [...] Subsection FMHV 0 mL Invalid Interpretation Code [facility] Man Sero CHEMISTRYOrdered By: SYSTEM SYSTEM on [...] 12.6 E9/L High 4.0 - 11.0 E9/L FT HemeAutoSS URINALYSISOrdered By: Naldo Li on 08-30-2022 [...] PM) Normal Negative [facility] UA Auto SS [place].plasma/[place] .RBC (Bld) [Mass ratio] 0-3 /HPF Normal [...] [facility] UA Auto SS Urobilinogen Qn (U) 0.2030844 {Rola'U}/dL Normal 0.0 - 1.0 EU/dL [facility] UA Auto SS WBC Auto Ql (U) Negative (08/30/22 9:45 PM) Normal Negative [facility] UA Auto SS WBC LM.HPF (Urine sed) [#/Area] 0-5 /HPF Normal 0-5/HPF [facility] UA Auto SS BLOOD BANKOrdered By: Janet Reyes on 08-22-2022 ABO/Rh Interp Positive Invalid Interpretation Code [facility] BB Subsection ABSC Gel Interp Negative (08/22/22 4:03 PM) Normal [facility] BB Subsection FMHV 0 mL Invalid Interpretation Code [facility] Man Sero CHEMISTRYOrdered By: SYSTEM SYSTEM on [...] PM) Normal Negative [facility] UA Auto SS [place].plasma/[place] .RBC (Bld) [Mass ratio] 0-3 /HPF Normal [...] [facility] UA Auto SS Urobilinogen Qn (U) 0.2524558 {Rola'U}/dL Normal 0.0 - 1.0 EU/dL [facility] [...] AM) Normal Negative [facility] UA Auto SS [place].plasma/[place] .RBC (Bld) [Mass ratio] 0-3 /HPF Normal 0-3/HPF [facility] UA Auto SS Mucus Ql (Urine sed) 1+ (08/18/22 4:08 AM) Normal [facility] UA Auto SS Nitrite Ql (U) Negative (08/18/22 4:08 AM) Normal Negative [facility] UA Auto SS pH (U) 6.0 *NA* (08/18/22 4:08 AM) Invalid Interpretation Code 5.0 - 9.0 [facility] UA Auto SS Protein (U) [Mass/Vol] Negative (08/18/22 4:08 AM) Normal Negative [facility] UA Auto SS Specific gravity (U) [Rel density] 1.020 *NA* (08/18/22 4:08 AM) Invalid Interpretation Code 1.005 - 1.030 [facility] UA Auto SS UA Spec Desc Clean Catch (08/18/22 4:08 AM) Normal [facility] UA Auto SS Urobilinogen Qn (U) 0.9350237 {Rola'U}/dL Normal 0.0 - 1.0 EU/dL [facility] UA Auto SS WBC Auto Ql (U) 2+ *ABN* (08/18/22 4:08 AM) Invalid Interpretation Code Negative [facility] UA Auto SS WBC LM.HPF (Urine sed) [#/Area] 6-15 /HPF Invalid Interpretation Code 0-5/HPF [facility] UA Auto SS BLOOD BANKOrdered By: Tom Avelar on 08-13-2022 ABO/Rh Interp Positive Invalid Interpretation Code [facility] BB Subsection ABSC Gel Interp Negative (08/13/22 6:26 PM) Normal [facility] BB Subsection FMHV 0 mL Invalid Interpretation Code [facility] Man Sero CHEMISTRYOrdered By: SYSTEM SYSTEM on [...] Interpretation Code Negative [facility] UA Auto SS [place].plasma/[place] .RBC (Bld) [Mass ratio] 0-3 /HPF Normal [...] [facility] UA Auto SS Urobilinogen Qn (U) 0.3781973 {Rola'U}/dL Normal 0.0 - 1.0 EU/dL [facility] [...] AM) Normal Negative [facility] UA Auto SS [place].plasma/[place] .RBC (Bld) [Mass ratio] 0-3 /HPF Normal 0-3/HPF [facility] UA Auto SS Nitrite Ql (U) Negative (07/26/22 8:05 AM) Normal Negative [facility] UA Auto SS pH (U) 8.0 *NA* (07/26/22 8:05 AM) Invalid Interpretation Code 5.0 - 9.0 [facility] UA Auto SS Protein (U) [Mass/Vol] Negative (07/26/22 8:05 AM) Normal Negative [facility] UA Auto SS Specific gravity (U) [Rel density] 1.015 *NA* (07/26/22 8:05 AM) Invalid Interpretation Code 1.005 - 1.030 [facility] UA Auto SS UA Spec Desc Clean Catch (07/26/22 8:05 AM) Normal [facility] UA Auto SS Urobilinogen Qn (U) 0.2507971 {Rola'U}/dL Normal 0.0 - 1.0 EU/dL [facility] UA Auto SS WBC Auto Ql (U) Trace *ABN* (07/26/22 8:05 AM) Invalid Interpretation Code Negative [facility] UA Auto SS WBC LM.HPF (Urine sed) [#/Area] 0-5 /HPF Normal 0-5/HPF [facility] UA Auto SS MICRO OTHER TESTSOrdered By: Tonja Carter on 07-17-2022 Influenzae A Ag Negative (07/17/22 9:20 AM) Normal Negative [facility] Man Sero Influenzae B Ag Negative (07/17/22 9:20 AM) Normal Negative [facility] Man Sero Rapid COV Int NEG Ctl Pass (07/17/22 9:20 AM) Normal [facility] Man Sero Rapid COV Int POS Ctl Pass (07/17/22 9:20 AM) Normal [facility] Man Sero SARS-CoV+SARS-CoV-2 (COVID-19) Ag IA.rapid Ql [...] AM) Normal Negative [facility] UA Auto SS [place].plasma/[place] .RBC (Bld) [Mass ratio] 0-3 /HPF Normal [...] [facility] UA Auto SS Urobilinogen Qn (U) 0.9621513 {Rola'U}/dL Normal 0.0 - 1.0 EU/dL [facility] UA Auto SS WBC Auto Ql (U) Negative (07/17/22 9:25 AM) Normal Negative [facility] UA Auto SS WBC LM.HPF (Urine sed) [#/Area] 0-5 /HPF Normal 0-5/HPF [facility] UA Auto SS CHEMISTRYOrdered By: SYSTEM SYSTEM on 06-28-2022 Glucose 1 Hr post 50 g glucose PO [Mass/Vol] 93 mg/dL Normal 55 - 140 mg/dL FT Remisol HEMATOLOGYOrdered By: Keila Ring on 06-28-2022 Hematocrit (Bld) [Volume fraction] 35.4 % Normal 34.0 - 46.0 % [facility] HemeAutoSS Hemoglobin (Bld) [Mass/Vol] 12.1 g/dL Normal 12.0 - 16.0 gm/dL [facility] HemeAutoSS BLOOD BANKOrdered By: Jeanette Castle on 06-19-2022 ABO/Rh Interp Positive Invalid Interpretation Code [facility] BB Subsection ABSC Gel Interp Negative (06/19/22 12:15 AM) Normal [facility] BB Subsection FMHV 0 mL Invalid Interpretation Code [facility] Man Sero CHEMISTRYOrdered By: SYSTEM SYSTEM on [...] 21 mg/dL [facility] Remisol COAGULATIONOrdered By: Davion Aguilary on 06-19-2022 aPTT Coag (PPP) [Time] 26.9 s Normal 25.1 - 36.5 second(s) [facility] Auto Coag Fibrin+Fibrinogen fragments (S) [Mass/Vol] <10 (06/19/22 12:15 AM) Normal <10 [facility] Man Sero Fibrinogen Coag (PPP) [Mass/Vol] 367 mg/dL Normal 200 - 393 mg/dL [facility] Auto Coag INR Coag (PPP) [Relative time] 0.9 {INR} Invalid Interpretation Code [facility] Auto Coag PT Coag (PPP) [Time] 10.3 s Normal 9.4 - 1 2.5 second(s) [facility] Auto Coag HEMATOLOGYOrdered By: Allrj n Corrine on 06-19-2022 Erythrocyte distribution width (RBC) [Ratio] [...] PM) Normal Negative [facility] UA Auto SS [place].plasma/[place] .RBC (Bld) [Mass ratio] 0-3 /HPF Normal [...] [facility] UA Auto SS Urobilinogen Qn (U) 0.3690431 {Rola'U}/dL Normal 0.0 - 1.0 EU/dL [facility] [...] PM) Normal Negative [facility] UA Auto SS [place].plasma/[place] .RBC (Bld) [Mass ratio] 0-3 /HPF Normal [...] [facility] UA Auto SS Urobilinogen Qn (U) 1.0687011 {Rola'U}/dL Normal 0.0 - 1.0 EU/dL [facility] UA Auto SS WBC Auto Ql (U) Negative (05/01/22 5:20 PM) Normal Negative [facility] UA Auto SS WBC LM.HPF (Urine sed) [#/Area] 0-5 /HPF Normal 0-5/HPF [facility] UA Auto SS BLOOD BANKOrdered By: Shayy Medina on 04-02-2022 ABO/Rh Interp Positive Invalid Interpretation Code [facility] BB Subsection ABSC Gel Interp Negative (04/02/22 7:17 AM) Normal FT BB Subsection FMHV 0 mL Invalid Interpretation Code [facility] Man Sero CHEMISTRYOrdered By: SYSTEM SYSTEM on [...] rate/Area] mL/min/1.73 m2 Normal >=59mL/min/ 1.73 m2 [facility] Chem S Globulin (S) [Mass/Vol] 3.0 g/dL [...] - 21 mg/dL [facility] Remisol COAGULATIONOrdered By: Temi Romero on 04-02-2022 aPTT Coag (PPP) [Time] 30.1 s Normal 25.1 - 36.5 second(s) [facility] Auto Coag Fibrin+Fibrinogen fragments (S) [Mass/Vol] <10 (04/02/22 7:17 AM) Normal <10 [facility] Man Sero Fibrinogen Coag (PPP) [Mass/Vol] 399 [...] AM) Normal Negative [facility] UA Auto SS [place].plasma/[place] .RBC (Bld) [Mass ratio] 0-3 /HPF Normal [...] [facility] UA Auto SS Urobilinogen Qn (U) 0.0236811 {Rola'U}/dL Normal 0.0 - 1.0 EU/dL [facility] [...] PM) Normal Negative [facility] UA Auto SS [place].plasma/[place] .RBC (Bld) [Mass ratio] 0-3 /HPF Normal [...] [facility] UA Auto SS Urobilinogen Qn (U) 0.5646540 {Rola'U}/dL Normal 0.0 - 1.0 EU/dL [facility] [...] 33.8 g/dL Normal 31.4 - 36.0 gm/dL [facility] HemeAutoSS MCV (RBC) [Entitic vol] 93.4 fL [...] 6.7 E9/L Normal 4.0 - 11.0 E9/L [facility] HemeAutoSS Reference Laboratory Testing Ordered By: Stephanie Diana on 02-15-2022 Test Code 392298 Invalid Interpretation Code [facility] SendOutsSS Test Name IG PAP CTNG HPV Invalid Interpretation Code [facility] SendOutsSS [place] 05-05-2021 CNPN Telephone (GSTCON) ----- SUSAN BRO ([id number]) 1995 F Date Time Provider Department 05/05/21 MARTHA WEBB GSTGERBER During your visit today, we recorded the following information about you: Tucker [employer] 05/05/2021 10:37 AM Signed Patient left message [...] diligent work on this patient [employer] 05/24/2021 2:23 PM Signed patient called and left a message today stating she needs to get this figured out she has not eaten in 3 days and cant even drink water now. Patient can be reached at [phone]- please read messages below for refresher Martha [...] so we can get records [employer] 05/26/2021 3:28 PM Signed Pt did not [...] bed and continue this dose - rizatriptan (MAXALT-TORQUE TESTER) 10 mg disintegrating tablet Take 1 tablet by mouth as needed for Migraine Headache (see administration instructions). AT ONSET OF HEADACHE. MAY REPEAT AFTER 2 HOURS. DO NOT EXCEED 30 MG PER DAY. Problem List As Of Date: 05/05/2021 (None) Encounter Status:Closed by DANII SCROLL SHEAR OPERATORTUCKER on 05/06/21 [facility] [place] 04-07-2021 CNPN Telephone (GSTCON) ----- SUSAN BRO ([id number]) 1995 F Date Time Provider Department 04/07/21 MARTHA WEBB GSTGERBER During your visit today, we recorded the following information about you: Tucker [employer] 04/07/2021 12:31 PM Signed [facility] called and they need the GES solid orde rplaced even though she has to use ensure, please sign order in this encounter Allergies As of Date: 04/07/2021 Noted Allergy Reaction PENICILLINS 03/10/2021 2 - Rash Date Reviewed: 04/01/2021 Reviewed by: Odette Agosto MD - Fully Assessed Reason for Visit: Orders [681] Visit Diagnosis:Nausea [R11.0] Order(s):NM GASTRIC EMPTYING SOLID [[id number]] Order #: [id number] FUTURE Prescriptions as of 04/07/2021 Sig: AMITRIPTYLINE 10 MG TABLET Take 1 tab at bed x 1 week, t* RIZATRIPTAN 10 MG DISINTEGRAT* Take 1 tablet by mouth as nee* Problem List As Of Date: 04/07/2021 (None) Encounter Status:Closed by MARTHA WEBB on 04/07/21 [facility] CNPAnnika 04-04-2021 CNPN Telephone (GSTCON) ----- SUSAN BRO ([id number]) 1995 F Date Time Provider Department 04/04/21 MARTHA WEBB GSTGERBER During your visit today, we recorded the following information about you: Tucker [employer] 04/04/2021 1:40 PM Signed Patient called and is still waiting for you to place the order for her GES with ensure, she cant eat the eggs and toast Martha Webb MD 04/04/2021 4:48 PM Signed Let patient know I placed the order Tucker [employer] 04/05/2021 11:41 AM [address] you place [...] Visit Diagnosis:Nausea [R11.0] Order(s):NM GASTRIC EMPTYING LIQUID [[id number]] Order #: [id number] FUTURE Prescriptions as of 04/04/2021 Sig: AMITRIPTYLINE 10 MG TABLET Take 1 tab at bed x 1 week, t* RIZATRIPTAN 10 MG DISINTEGRAT* Take 1 tablet by mouth as nee* Problem List As Of Date: 04/04/2021 (None) Encounter Status:Closed by MARTHA WEBB on 04/05/21 [facility] CNOVon 04-01-2021 CNOV Office Visit (NHMNS2 ) ----- SUSAN BRO ([id number]) 1995 F Date Time Provider Department 04/01/21 8:00 AM BERT NEGRETE KYMNS2 During your visit today, we recorded the following information about you: Pulse Blood pressure Weight Height 72/minute 111/67 70.9 kg 1.626 m Last Period 02/23/21 Rigoberto Zimmer Ia 04/01/2021 7:54 AM Addendum Please start taking [...] at least 3 months. These include all mgbg-axp-ksihvcw medications, triptans, narcotics, and butalbital containing medications [...] There h (more content not included)... Normal [facility] CNPNon 03-22-2021 CNPN Telephone (GSTCON) ----- SUSAN BRO ([id number]) 1995 F Date Time Provider Department 03/22/21 MARTHA WEBB During your visit today, we recorded the following information about you: Tucker Wiseman 03/22/2021 2:28 PM Signed Received: Today MD Eusebia Banks Cig Clinical Pool; [employer] Let patient know esophagram was normal Next step is gastric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 unremarkable.IMPRESSION:N o acute/significant pathology detected.Sericulturist : [facility] Transcribe Date/Time: Jul 23 2017 1:41PDictated by : Armando CHARLES examination was interpreted and the report reviewed and electronically signed by: LUIS CARLOS PALM MD on Jul 23 2017 1:42PM [id number] Normal [facility] Vital Signs Date Time Vital Sign Value Performing Clinician Facility 11-06-2024 09:24-0500 Body mass index (BMI) [Ratio] 36.56 kg/m2 Rashaun Perry DO Work Phone: [facility] 11-06-2024 09:24-0500 Body weight 93.62 kg Rashaun Perry DO Work Phone: [facility] 11-06-2024 09:24-0500 Diastolic blood pressure 74 mm[Hg] Rashaun Perry DO Work Phone: [facility] 11-06-2024 09:24-0500 Systolic blood pressure 132 mm[Hg] Rashaun Perry DO Work Phone: [facility] 11-27-2023 08:38-0500 Body weight 85.91 kg Rashaun Perry DO Work Phone: [facility] 11-27-2023 08:38-0500 Diastolic blood pressure 78 mm[Hg] Rashaun Perry DO Work Phone: [facility] 11-27-2023 08:38-0500 Systolic blood pressure 114 mm[Hg] Rashaun Perry DO Work Phone: [facility] 11-20-2023 11:13-0500 Body weight 84.42 kg Rashaun Perry DO Work Phone: [facility] 11-20-2023 11:13-0500 Diastolic blood pressure 70 mm[Hg] Rashaun Perry DO Work Phone: [facility] 11-20-2023 11:13-0500 Systolic blood pressure 110 mm[Hg] Rashaun Perry DO Work Phone: [facility] 11-04-2023 08:13-0500 Blood Pressure Location Rashaun PERRY [facility] 11-04-2023 08:13-0500 Body temperature 98.06 [degF] Rashaun PERRY [facility] 11-04-2023 08:13-0500 Diastolic blood pressure 68 mm[Hg] Rashaun PERRY [facility] 11-04-2023 08:13-0500 Heart rate 77 /min Rashaun PERRY [facility] 11-04-2023 08:13-0500 Mean blood pressure 81 mm[Hg] Rashaun PERRY [facility] 11-04-2023 08:13-0500 SaO2% (BldA) [Mass fraction] 99 % Rashaun PERRY [facility] 11-04-2023 08:13-0500 Systolic blood pressure 106 mm[Hg] Rashaun PERRY [facility] 11-04-2023 08:00-0500 Hourly Rounding Rashaun PERRY [facility] 11-04-2023 08:00-0500 Promise to Return Rashaun PERRY [facility] 08-18-2023 07:30-0400 Body temperature 98.24 [degF] Julia Nataprawira [facility] 08-18-2023 07:30-0400 Diastolic blood pressure 67 mm[Hg] Julia Nataprawira [facility] 08-18-2023 07:30-0400 Heart rate 95 /min Julia Nataprawira [facility] 08-18-2023 07:30-0400 Hourly Rounding Julia Nataprawira [facility] 08-18-2023 07:30-0400 Mean blood pressure 89 mm[Hg] Julia Nataprawira [facility] 08-18-2023 07:30-0400 Respiratory rate 16 /min Julia Nataprawira [facility] 08-18-2023 07:30-0400 Systolic blood pressure 133 mm[Hg] Julia Haywood [facility] 07-25-2023 08:17-0400 Body temperature 97.7 [degF] Kristian Guillermo [facility] 07-25-2023 08:17-0400 Diastolic blood pressure 65 mm[Hg] Kristian Guillermo [facility] 07-25-2023 08:17-0400 Heart rate 73 /min Kristian Guillermo [facility] 07-25-2023 08:17-0400 Respiratory rate 16 /min Kristian Guillermo [facility] 07-25-2023 08:17-0400 SaO2% (BldA) [Mass fraction] 100 % Kristian Guillermo [facility] 07-25-2023 08:17-0400 Systolic blood pressure 119 mm[Hg] Kristian Guillermo [facility] 06-28-2023 10:34-0400 Blood Pressure Location [facility]over[facility]apoleon Guthries[facility] 06-28-2023 10:34-0400 Body temperature 98.24 [degF] Roverto Spasic [facility] 06-28-2023 10:34-0400 Diastolic blood pressure 78 mm[Hg] Roverto Spasic [facility] 06-28-2023 10:34-0400 Heart rate 81 /min Roverto Spasic [facility] 06-28-2023 10:34-0400 SaO2% (BldA) [Mass fraction] 99 % Roverto Spasic [facility] 06-28-2023 10:34-0400 Systolic blood pressure 119 mm[Hg] Roverto Spasic [facility] 06-14-2023 08:37-0400 Body temperature 98.6 [degF] Kristianmark Guillermo [facility] 06-14-2023 08:37-0400 Diastolic blood pressure 70 mm[Hg] Kristian Eagle [facility] 06-14-2023 08:37-0400 Heart rate 69 /min Kristian Eagle [facility] 06-14-2023 08:37-0400 Respiratory rate 18 /min Kristian Guillermo [facility] 06-14-2023 08:37-0400 SaO2% (BldA) [Mass fraction] 100 % Kristian Guillermo [facility] 06-14-2023 08:37-0400 Systolic blood pressure 110 mm[Hg] Kristian Eagle [facility] 05-21-2023 23:00-0400 Diastolic blood pressure 64 mm[Hg] Kaylinn Dokken [facility] 05-21-2023 23:00-0400 Heart rate 64 /min Kaylinn Dokken [facility] 05-21-2023 23:00-0400 Mean blood pressure 77 mm[Hg] Kaylinn Dokken [facility] 05-21-2023 23:00-0400 Respiratory rate 18 /min Kaylinn Dokken [facility] 05-21-2023 23:00-0400 Systolic blood pressure 102 mm[Hg] Kaylinn Dokken [facility] 05-21-2023 21:50-0400 Hourly Rounding Kaylinn Dokken [facility] 05-21-2023 21:30-0400 Diastolic blood pressure 53 mm[Hg] Kaylinn Dokken [facility] 05-21-2023 21:30-0400 Heart rate 72 /min Kaylinn Dokken [facility] 05-21-2023 21:30-0400 Respiratory rate 19 /min Kaylinn Dokken [facility] 05-21-2023 21:30-0400 SaO2% (BldA) [Mass fraction] 100 % Kaylinn Dokken [facility] 05-21-2023 21:30-0400 Systolic blood pressure 91 mm[Hg] Kaylinn Dokken [facility] 05-21-2023 20:38-0400 Body temperature 98.42 [degF] Kaylinn Dokken [facility] 05-21-2023 20:38-0400 Diastolic blood pressure 73 mm[Hg] Kaylinn Dokken [facility] 05-21-2023 20:38-0400 Heart rate 60 /min Kaylinn Dokken [facility] 05-21-2023 20:38-0400 Respiratory rate 20 /min Kaylinn Dokken [facility] 05-21-2023 20:38-0400 Systolic blood pressure 109 mm[Hg] Kaylinn Dokken [facility] 04-26-2023 11:10-0400 Diastolic blood pressure 74 mm[Hg] [facility] 04-26-2023 11:10-0400 Heart rate 65 /min [facility] 04-26-2023 11:10-0400 Respiratory rate 14 /min [facility] 04-26-2023 11:10-0400 SaO2% (BldA) [Mass fraction] 100 % [facility] 04-26-2023 11:10-0400 Systolic blood pressure 108 mm[Hg] [facility] 04-26-2023 09:00-0400 Body temperature 98.24 [degF] [facility] 04-26-2023 09:00-0400 Diastolic blood pressure 72 mm[Hg] [facility] 04-26-2023 09:00-0400 Heart rate 80 /min [facility] 04-26-2023 09:00-0400 Mean blood pressure 85 mm[Hg] [facility] 04-26-2023 09:00-0400 Respiratory rate 18 /min [facility] 04-26-2023 09:00-0400 Systolic blood pressure 110 mm[Hg] [facility] 01-31-2023 11:43-0400 Diastolic blood pressure 67 mm[Hg] Kristian Guillermo [facility] 01-31-2023 11:43-0400 Heart rate 68 /min Kristian Guillermo [facility] 01-31-2023 11:43-0400 Mean blood pressure 79 mm[Hg] Kristian Guillermo [facility] 01-31-2023 11:43-0400 Respiratory rate 16 /min Kristian Guillermo [facility] 01-31-2023 11:43-0400 SaO2% (BldA) [Mass fraction] 100 % Kristian Eagle [facility] 01-31-2023 11:43-0400 Systolic blood pressure 103 mm[Hg] Kristian Eagle [facility] 01-31-2023 11:03-0400 Diastolic blood pressure 73 mm[Hg] Kristian Eagle [facility] 01-31-2023 11:03-0400 Heart rate 71 /min Kristian Eagle [facility] 01-31-2023 11:03-0400 Mean blood pressure 81 mm[Hg] Kristian Eagle [facility] 01-31-2023 11:03-0400 Respiratory rate 12 /min Kristian Eagle [facility] 01-31-2023 11:03-0400 SaO2% (BldA) [Mass fraction] 100 % Kristian Eagle [facility] 01-31-2023 11:03-0400 Systolic blood pressure 98 mm[Hg] Kristian Eagle [facility] 01-31-2023 10:29-0400 Diastolic blood pressure 77 mm[Hg] Kristian Eagle [facility] 01-31-2023 10:29-0400 Heart rate 87 /min Kristian Eagle [facility] 01-31-2023 10:29-0400 Respiratory rate 21 /min Kristian Eagle [facility] 01-31-2023 10:29-0400 SaO2% (BldA) [Mass fraction] 99 % Kristian Eagle [facility] 01-31-2023 10:29-0400 Systolic blood pressure 101 mm[Hg] Kristian Eagle [facility] 01-31-2023 09:51-0400 gluc 100 mg/dL Kristian Eagle [facility] 01-31-2023 09:51-0400 gluc Kristian Guillermo [facility] 01-31-2023 09:43-0400 Body temperature 98.42 [degF] Kristian Guillermo [facility] 01-31-2023 09:43-0400 Heart rate 75 /min Kristian Guillermo [facility] 01-31-2023 09:43-0400 Respiratory rate 18 /min Kristian Guillermo [facility] 09-22-2022 15:14-0500 Body temperature 98.24 [degF] Luis Carlos Fabiana [facility] 09-22-2022 15:14-0500 Diastolic blood pressure 84 mm[Hg] Luis Carlos Jung [facility] 09-22-2022 15:14-0500 Heart rate 76 /min Luis Carlos Jung [facility] 09-22-2022 15:14-0500 Mean blood pressure 97 mm[Hg] Luis Carlos Fabiana [facility] 09-22-2022 15:14-0500 Respiratory rate 20 /min Luis Carlos Jung [facility] 09-22-2022 15:14-0500 Systolic blood pressure 124 mm[Hg] Luis Carlos Fabiana [facility] 09-22-2022 15:00-0500 Blood Pressure Location Luis Carlos Jung [facility] 09-20-2022 17:15-0500 Hourly Rounding Luis Carlos Jung [address] [place] [id number] Comment on above: Result Comment: discharge instructions g iven with verbal understanding. monitors off; pt up to dress. 09-20-2022 16:15-0500 Diastolic blood pressure 77 mm[Hg] Luis Carlos Fabiana [facility] 09-20-2022 16:15-0500 Heart rate 78 /min Luis Carlos Montesinosten [facility] 09-20-2022 16:15-0500 Mean blood pressure 92 mm[Hg] Luis Carlos Fabiana [facility] 09-20-2022 16:15-0500 Respiratory rate 18 /min Luis Carlos Montesinosten [facility] 09-20-2022 16:15-0500 Systolic blood pressure 121 mm[Hg] Luis Carlos Fabiana [facility] 09-20-2022 13:16-0500 Diastolic blood pressure 80 mm[Hg] Luis Carlos Fabiana [facility] 09-20-2022 13:16-0500 Heart rate 80 /min Luis Carlos Montesinosten [facility] 09-20-2022 13:16-0500 Mean blood pressure 93 mm[Hg] Luis Carlos Montesinosten [facility] 09-20-2022 13:16-0500 Respiratory rate 18 /min Luis Carlos Montesinosten [facility] 09-20-2022 13:16-0500 Systolic blood pressure 120 mm[Hg] Luis Carlos Fabiana [facility] 09-20-2022 09:48-0500 Diastolic blood pressure 79 mm[Hg] Luis Carlos Fabiana [facility] 09-20-2022 09:48-0500 Heart rate 94 /min Luis Carlos Montesinosten [facility] 09-20-2022 09:48-0500 Hourly Rounding Luis Carlos Jung [facility] 09-20-2022 09:48-0500 Mean blood pressure 97 mm[Hg] Luis Carlos Jung [facility] 09-20-2022 09:48-0500 Respiratory rate 18 /min Luis Carlos Jung [facility] 09-20-2022 09:48-0500 Systolic blood pressure 132 mm[Hg] Luis Carlos Jung [facility] 09-19-2022 03:38-0500 Hourly Rounding Jj MOOREASIK [facility] Comment on above: Result Comment: pt walks off unit with a steady gait 09-19-2022 02:45-0500 Blood Pressure Location Jj KARASIK [facility] 09-19-2022 02:45-0500 Body temperature 98.42 [degF] Jj KARASIK [facility] 09-19-2022 02:45-0500 Diastolic blood pressure 77 mm[Hg] Jj KARASIK [facility] 09-19-2022 02:45-0500 Heart rate 62 /min Jj KARASIK [facility] 09-19-2022 02:45-0500 Hourly Rounding Jj KARASIK [facility] Comment on above: Result Comment: questions answered, guillaume monk 09-19-2022 02:45-0500 Mean blood pressure 91 mm[Hg] Jj KARASIK [facility] 09-19-2022 02:45-0500 Respiratory rate 18 /min Jj KARASIK [facility] 09-19-2022 02:45-0500 Systolic blood pressure 120 mm[Hg] Jj KARASIK [facility] 09-19-2022 01:45-0500 Blood Pressure Location Jj MIKE [facility] 09-19-2022 01:45-0500 Body temperature 98.06 [degF] Jj MIKE [facility] 09-19-2022 01:45-0500 Diastolic blood pressure 84 mm[Hg] Jj MIKE [facility] 09-19-2022 01:45-0500 Heart rate 70 /min Jj MIKE [facility] 09-19-2022 01:45-0500 Hourly Rounding Jj MIKE [facility] Comment on above: Result Comment: pt brought to unit via w heelchair. Changes into gown independently and provides urine sample. Pt demonstrates ability to use call light. Needs met, call light in reach 09-19-2022 01:45-0500 Mean blood pressure 96 mm[Hg] Jj MIKE [facility] 09-19-2022 01:45-0500 Respiratory rate 18 /min Jj MIKE [facility] 09-19-2022 01:45-0500 Systolic blood pressure 120 mm[Hg] Jj MIKE [facility] 09-14-2022 12:15-0500 Hourly Rounding Luis Carlos Fabiana [facility] Comment on above: Result Comment: reviewed plan for disch and use of meds to treat head ache 09-14-2022 11:45-0500 Hourly Rounding Luis Carlos Jung [facility] Comment on above: Result Comment: STATES SHE FEELS MUCH BE TTER AND WANTS TO GO HOME 09-14-2022 11:15-0500 Diastolic blood pressure 73 mm[Hg] Luis Carlos Montesinosten [facility] 09-14-2022 11:15-0500 Heart rate 74 /min Luis Carlos Montesinosten [facility] 09-14-2022 11:15-0500 Hourly Rounding Luis Carlos Jung [facility] 09-14-2022 11:15-0500 Mean blood pressure 88 mm[Hg] Luis Carlos Fabiana [facility] 09-14-2022 11:15-0500 Systolic blood pressure 119 mm[Hg] Luis Carlos Montesinosten [facility] 09-14-2022 11:00-0500 Diastolic blood pressure 66 mm[Hg] Luis Carlos Montesinosten [facility] 09-14-2022 11:00-0500 Heart rate 67 /min Luis Carlos Montesinosten [facility] 09-14-2022 11:00-0500 Mean blood pressure 84 mm[Hg] Luis Carlos Montesinosten [facility] 09-14-2022 11:00-0500 Systolic blood pressure 120 mm[Hg] Luis Carlos Montesinosten [facility] 09-14-2022 10:45-0500 Diastolic blood pressure 72 mm[Hg] Luis Carlos Montesinosten [facility] 09-14-2022 10:45-0500 Heart rate 75 /min Luis Carlos Montesinosten [facility] 09-14-2022 10:45-0500 Mean blood pressure 90 mm[Hg] Luis Carlos Montesinosten [facility] 09-14-2022 10:45-0500 Systolic blood pressure 125 mm[Hg] Luis Carlos Montesinosten [facility] 09-14-2022 09:30-0500 Blood Pressure Location Luis Carlos Jung [facility] 09-14-2022 09:30-0500 Body temperature 98.06 [degF] Luis Carlos Jung [facility] 09-14-2022 09:30-0500 Respiratory rate 16 /min Luis Carlos Jung [facility] 09-12-2022 20:45-0500 Hourly Rounding Luis Carlos Jung [facility] Comment on above: Result Comment: dischage instructions gi merly, pt verbalizes understanding. pt ambulates off unit with steady gait 09-12-2022 20:00-0500 Blood Pressure Location Luis Carlos Jung [facility] 09-12-2022 20:00-0500 Diastolic blood pressure 79 mm[Hg] Luis Carlos Jung [facility] 09-12-2022 20:00-0500 Heart rate 84 /min Luis Carlos Jung [facility] 09-12-2022 20:00-0500 Hourly Rounding Luis Carlos Jung [facility] 09-12-2022 20:00-0500 Mean blood pressure 95 mm[Hg] Luis Carlos Jung [facility] 09-12-2022 20:00-0500 Respiratory rate 18 /min Luis Carlos Jung [facility] 09-12-2022 20:00-0500 Systolic blood pressure 128 mm[Hg] Luis Carlos Jung [facility] 09-12-2022 19:45-0500 Hourly Rounding Luis Carlos Jung [facility] Comment on above: Result Comment: pt arrives to unit in eelchair with mother. Changes into gown independently, oriented to room, demonstrates ability to use call light, call light in reach 09-08-2022 08:32-0500 Blood Pressure Location Luis Carlos Jung [facility] 09-08-2022 08:32-0500 Body temperature 97.34 [degF] Luis Carlos Jung [facility] 09-08-2022 08:32-0500 Diastolic blood pressure 74 mm[Hg] Luis Carlos Jung [facility] 09-08-2022 08:32-0500 Heart rate 90 /min Luis Carlos Jung [facility] 09-08-2022 08:32-0500 Hourly Rounding Luis Carlos Jung [facility] Comment on above: Result Comment: PLAN OF CARE DISCUSSED 09-08-2022 08:32-0500 Mean blood pressure 90 mm[Hg] Luis Carlos Jung [facility] 09-08-2022 08:32-0500 Respiratory rate 18 /min Luis Carlos Jung [facility] 09-08-2022 08:32-0500 Systolic blood pressure 123 mm[Hg] Luis Carlos Jung [facility] 09-05-2022 22:00-0500 Body temperature 98.6 [degF] Carrolylmarkn Dokken [facility] 09-05-2022 22:00-0500 Diastolic blood pressure 73 mm[Hg] Kaylinn Dokken [facility] 09-05-2022 22:00-0500 Mean blood pressure 85 mm[Hg] Kaylinn Dokken [facility] 09-05-2022 22:00-0500 Respiratory rate 27 /min Kaylinn Dokken [facility] 09-05-2022 22:00-0500 SaO2% (BldA) [Mass fraction] 100 % Kaylinn Dokken [facility] 09-05-2022 22:00-0500 Systolic blood pressure 108 mm[Hg] Kaylinn Dokken [facility] 09-05-2022 21:01-0500 Heart rate 78 /min Kaylinn Dokken [facility] 09-05-2022 21:01-0500 Respiratory rate 20 /min Kaylinn Dokken [facility] 09-05-2022 21:01-0500 SaO2% (BldA) [Mass fraction] 94 % Kaylinn Dokken [facility] 09-05-2022 21:00-0500 Diastolic blood pressure 77 mm[Hg] Kaylinn Dokken [facility] 09-05-2022 21:00-0500 Mean blood pressure 87 mm[Hg] Kaylinn Dokken [facility] 09-05-2022 20:10-0500 Body temperature 97.7 [degF] Kaylinn Dokken [facility] 09-05-2022 20:10-0500 Diastolic blood pressure 81 mm[Hg] Kaylinn Dokken [facility] 09-05-2022 20:10-0500 Heart rate 83 /min Kaylinn Dokken [facility] 09-05-2022 20:10-0500 Respiratory rate 22 /min Kaylinn Dokken [facility] 09-05-2022 20:10-0500 SaO2% (BldA) [Mass fraction] 99 % Gopi Rodriguez [facility] 09-05-2022 20:10-0500 Systolic blood pressure 135 mm[Hg] Gopi Rodriugez [facility] 08-31-2022 01:03-0500 Hourly Rounding Luis Carlos Jung [facility] Comment on above: Result Comment: pt ambulates off unit at this time w/ steady gait. 08-31-2022 00:58-0500 Hourly Rounding Luis Carlos Jung [facility] Comment on above: Result Comment: this nurse gives dischar ge instructions to pt at this time. pt verbalizes understanding of all education given. denies further needs. will continue to monitor. 08-31-2022 00:50-0500 Blood Pressure Location Luis Carlos Jung [facility] 08-31-2022 00:50-0500 Diastolic blood pressure 69 mm[Hg] Luis Carlos Jung [facility] 08-31-2022 00:50-0500 Heart rate 67 /min Luis Carlos Jung [facility] 08-31-2022 00:50-0500 Hourly Rounding Luis Carlos Jung [facility] Comment on above: Result Comment: pt up to bathroom at thi s time to void and change into clothes. walks w/ steady gait. 08-31-2022 00:50-0500 Mean blood pressure 83 mm[Hg] Luis Carlos Jung [facility] 08-31-2022 00:50-0500 Respiratory rate 18 /min Luis Carlos Jung [facility] 08-31-2022 00:50-0500 Systolic blood pressure 112 mm[Hg] Luis aCrlos Jung [facility] 08-30-2022 21:52-0500 Body temperature 98.06 [degF] Luis Carlos Jung [facility] 08-30-2022 21:52-0500 Diastolic blood pressure 74 mm[Hg] Luis Carlos Jung [facility] 08-30-2022 21:52-0500 Heart rate 82 /min Luis Carlos Jung [facility] 08-30-2022 21:52-0500 Mean blood pressure 90 mm[Hg] Luis Carlos Jung [facility] 08-30-2022 21:52-0500 Respiratory rate 18 /min Luis Carlos Jung [facility] 08-30-2022 21:52-0500 Systolic blood pressure 123 mm[Hg] Luis Carlos Jung [facility] 08-30-2022 21:45-0500 Blood Pressure Location Luis Carlos Jung [facility] 08-22-2022 17:19-0500 Hourly Rounding Luis Carlos Jung [facility] Comment on above: Result Comment: MONITORS OFF; PT UP TO D RESS. DISCHARGE INSTRUCTIONS GIVEN WITH VERBAL UNDERSTANDING. 08-22-2022 15:14-0500 Diastolic blood pressure 71 mm[Hg] Luis Carlos Jung [facility] 08-22-2022 15:14-0500 Heart rate 87 /min Luis Carlos Jung [facility] 08-22-2022 15:14-0500 Hourly Rounding Luis Carlos Jung [facility] 08-22-2022 15:14-0500 Mean blood pressure 86 mm[Hg] Luis Carlos Jung [facility] 08-22-2022 15:14-0500 Respiratory rate 18 /min Luis Carlos Jung [facility] 08-22-2022 15:14-0500 Systolic blood pressure 115 mm[Hg] Luis Carlos Jung [facility] 08-18-2022 12:28-0400 Hourly Rounding Luis Carlos Jung [facility] Comment on above: Result Comment: pt verbalizes understand ing of discharge instructions. pt states she has an appointment sunday with dr jung. pt ambulated out of unit 08-18-2022 10:28-0400 Hourly Rounding Luis Carlos Jung [facility] Comment on above: Result Comment: pt c/o left lower abd pa in. states it is intermittent and sharp. encouraged pt to get up and empty bladder. pt states pain is still 7/10. dr jung on unit & at bedside 08-18-2022 09:09-0400 Hourly Rounding Luis Carlos Jung [facility] Comment on above: Result Comment: pt sitting up in bed wit h breakfast tray, visitor at bedside 08-18-2022 07:15-0400 Blood Pressure Location Luis Carlos Jung [facility] 08-18-2022 07:15-0400 Diastolic blood pressure 56 mm[Hg] Luis Carlos Jung [facility] 08-18-2022 07:15-0400 Heart rate 69 /min Luis Carlos Jung [facility] [facility] 07:15-0400 Mean blood pressure 74 mm[Hg] Luis Carlos Jung [facility] 08-18-2022 07:15-0400 Respiratory rate 16 /min Luis Carlos Jung [facility] 08-18-2022 07:15-0400 Systolic blood pressure 111 mm[Hg] Luis Carlos Jung [facility] 08-18-2022 05:58-0400 Blood Pressure Location Luis Carlos Jung [facility] 08-18-2022 05:58-0400 Diastolic blood pressure 59 mm[Hg] Luis Carlos Jung [facility] 08-18-2022 05:58-0400 Heart rate 67 /min Luis Carlos Jung [facility] 08-18-2022 05:58-0400 Mean blood pressure 77 mm[Hg] Luis Carlos Jung [facility] 08-18-2022 05:58-0400 Respiratory rate 16 /min Luis Carlos Jung [facility] 08-18-2022 05:58-0400 Systolic blood pressure 113 mm[Hg] Luis Carlos Jung [facility] 08-18-2022 04:06-0400 Blood Pressure Location Luis Carlos Jung [facility] 08-18-2022 04:06-0400 Body temperature 98.06 [degF] Luis Carlos Jung [facility] 08-18-2022 04:06-0400 Diastolic blood pressure 65 mm[Hg] Luis Carlos Jung [facility] 08-18-2022 04:06-0400 Heart rate 70 /min Luis Carlos Jung [facility] 08-18-2022 04:06-0400 Mean blood pressure 79 mm[Hg] Luis Carlos Jung [facility] 08-18-2022 04:06-0400 Respiratory rate 16 /min Luis Carlos Jung [facility] 08-18-2022 04:06-0400 Systolic blood pressure 107 mm[Hg] Luis Carlos Jung [facility] 08-13-2022 20:04-0400 Hourly Rounding Luis Carlos Fabiana [facility] Comment on above: Result Comment: Patient discharged off u nit. Discharge instructions were reviewed. Pt walks off unit without any notable signs or symtpoms of distress. 08-13-2022 19:45-0400 Hourly Rounding Luis Carlos Fabiana [facility] 08-13-2022 19:45-0400 Hourly Rounding [facility] Comment on above: Result Comment: Patient sitting in bed. BPP results reviewed with patient. Pt denied any additional questions. Call light within reach. 08-13-2022 18:12-0400 Heart rate 88 /min [facility] 08-13-2022 18:12-0400 Nursing Progress Note Reason Other: Pt updated on orders received from . jose understanding [facility] 08-13-2022 18:12-0400 SaO2% (BldA) [Mass fraction] 99 % Luis Carlos Fabiana [facility] 08-13-2022 17:33-0400 Body temperature 97.88 [degF] Luis Carlos Jung [facility] 08-13-2022 17:33-0400 Diastolic blood pressure 72 mm[Hg] Luis Carlos Jung [facility] 08-13-2022 17:33-0400 Mean blood pressure 88 mm[Hg] Luis Carlos Jung [facility] 08-13-2022 17:33-0400 Respiratory rate 18 /min Luis Carlos Jung [facility] 08-13-2022 17:33-0400 Systolic blood pressure 121 mm[Hg] Luis Carlos Jung [facility] 07-26-2022 10:22-0400 Hourly Rounding Luis Carlos Jung [facility] Comment on above: Result Comment: discharge instructions p rovided and pt signs discharge consent with RN witness. pt preparing for discharge, belly band placed on pt. RN offers wheelchair exit for discharge and pt declines and wants to walk down on own. 07-26-2022 10:22-0400 Promise to Return Luis Carlos Jung [facility] 07-26-2022 10:00-0400 Hourly Rounding Luis Carlos Jung [facility] 07-26-2022 10:00-0400 Promise to Return Luis Carlos Jung [facility] 07-26-2022 09:15-0400 Blood Pressure Location Luis Carlos Jung [facility] 07-26-2022 09:15-0400 Body temperature 97.7 [degF] Luis Carlos Jung [facility] 07-26-2022 09:15-0400 Diastolic blood pressure 62 mm[Hg] Luis Carlos Jung [facility] 07-26-2022 09:15-0400 Heart rate 70 /min Luis Carlos Jung [facility] 07-26-2022 09:15-0400 Hourly Rounding Luis Carlos Jung [facility] 07-26-2022 09:15-0400 Mean blood pressure 74 mm[Hg] Luis Carlos Jung [facility] 07-26-2022 09:15-0400 Respiratory rate 18 /min Luis Carlos Jung [facility] 07-26-2022 09:15-0400 Systolic blood pressure 97 mm[Hg] Luis Carlos Jung [facility] 07-26-2022 09:00-0400 Promise to Return Luis Carlos Jung [facility] 07-26-2022 08:14-0400 Body temperature 98.06 [degF] Luis Carlos Jung [facility] 07-26-2022 08:14-0400 Diastolic blood pressure 66 mm[Hg] Luis Carlos Jung [facility] 07-26-2022 08:14-0400 Heart rate 81 /min Luis Carlos Jung [facility] 07-26-2022 08:14-0400 Mean blood pressure 80 mm[Hg] Luis Carlos Jung [facility] 07-26-2022 08:14-0400 Respiratory rate 18 /min Luis Carlos Jung [facility] 07-26-2022 08:14-0400 Systolic blood pressure 109 mm[Hg] Luis Carlos Jung [facility] 07-17-2022 09:07-0400 Body temperature 97.88 [degF] Ko Dumas [facility] 07-17-2022 09:07-0400 Diastolic blood pressure 74 mm[Hg] Ko Dumas [facility] 07-17-2022 09:07-0400 Heart rate 85 /min Ko Almodovare [facility] 07-17-2022 09:07-0400 Respiratory rate 16 /min Ko Dumas [facility] 07-17-2022 09:07-0400 SaO2% (BldA) [Mass fraction] 100 % Ko Almodovare [facility] 07-17-2022 09:07-0400 Systolic blood pressure 117 mm[Hg] Ko Almodovare [facility] 06-26-2022 21:38-0400 Blood Pressure Location Luis Carlos Fabiana [facility] 06-26-2022 21:38-0400 Diastolic blood pressure 61 mm[Hg] Luis Carlos Fabiana [facility] 06-26-2022 21:38-0400 Heart rate 83 /min Luis Carlos Fabiana [facility] 06-26-2022 21:38-0400 Hourly Rounding Luis Carlos Jung [facility] Comment on above: Result Comment: discharged ambulatory to [facility] 06-26-2022 21:38-0400 Mean blood pressure 75 mm[Hg] Luis Carlos Montesinosten [facility] 06-26-2022 21:38-0400 Respiratory rate 16 /min Luis Carlos Montesinosten [facility] 06-26-2022 21:38-0400 Systolic blood pressure 102 mm[Hg] Luis Carlos Montesinosten [facility] 06-26-2022 21:15-0400 Blood Pressure Location Luis Carlos Jung [facility] 06-26-2022 21:15-0400 Diastolic blood pressure 64 mm[Hg] Luis Carlos Montesinosten [facility] 06-26-2022 21:15-0400 Heart rate 74 /min Luis Carlos Jung [facility] 06-26-2022 21:15-0400 Hourly Rounding Luis Carlos Jung [facility] 06-26-2022 21:15-0400 Mean blood pressure 78 mm[Hg] Luis Carlos Montesinosten [facility] 06-26-2022 21:15-0400 Respiratory rate 16 /min Luis Carlos Montesniosten [facility] 06-26-2022 21:15-0400 Systolic blood pressure 106 mm[Hg] Luis Carlos Jung [facility] 06-26-2022 21:05-0400 Body temperature 97.88 [degF] Luis Carlos Jung [facility] 06-26-2022 21:05-0400 Respiratory rate 18 /min Luis Carlos Jung [facility] 06-26-2022 21:00-0400 Hourly Rounding Luis Carlos Jung [facility] Comment on above: Result Comment: ice water given 06-19-2022 01:30-0400 Hourly Rounding Luis Carlos Jung [facility] Comment on above: Result Comment: updated on plan of care after speaking to dr jung. verb understanding and all d/c instructions provided. denies further needs/concerns. ambulates off unit without any further questions. 06-19-2022 01:00-0400 Hourly Rounding Luis Carlos Jung [facility] Comment on above: Result Comment: rests in bed on phone. d enies any needs. denies any pain at this time or any pain or cramping since arrival. call light within reach 06-19-2022 00:15-0400 Hourly Rounding Luis Carlos Jung [facility] 06-18-2022 23:54-0400 Body temperature 97.88 [degF] Luis Carlos Jung [facility] 06-18-2022 23:54-0400 Diastolic blood pressure 65 mm[Hg] Luis Carlos Jung [facility] 06-18-2022 23:54-0400 Heart rate 76 /min Luis Carlos Jung [facility] 06-18-2022 23:54-0400 Mean blood pressure 81 mm[Hg] Luis Carlos Jung [facility] 06-18-2022 23:54-0400 Respiratory rate 18 /min Luis Carlos Jung [facility] 06-18-2022 23:54-0400 Systolic blood pressure 112 mm[Hg] Luis Carlos Jung [facility] 06-18-2022 23:45-0400 Blood Pressure Location Luis Carlos Jung [facility] 05-01-2022 17:45-0400 Hourly Rounding Luis Carlos Jung [facility] Comment on above: Result Comment: reviewed disch inst and meds to take states understanding 05-01-2022 17:30-0400 Hourly Rounding Luis Carlos Jung [facility] 05-01-2022 17:23-0400 Body temperature 98.06 [degF] Luis Carlos Jung [facility] 05-01-2022 17:23-0400 Diastolic blood pressure 57 mm[Hg] Luis Carlos Jung [facility] 05-01-2022 17:23-0400 Heart rate 83 /min Luis Carlos Jung [facility] 05-01-2022 17:23-0400 Mean blood pressure 71 mm[Hg] Luis Carlos Jung [facility] 05-01-2022 17:23-0400 Respiratory rate 16 /min Luis Carlos Jung [facility] 05-01-2022 17:23-0400 Systolic blood pressure 99 mm[Hg] Luis Carlos Jung [facility] 05-01-2022 17:15-0400 Blood Pressure Location Luis Carlos Jung [facility] 07-18-2022 17:15-0400 Hourly Rounding Luis Carlos Jung [facility] 04-02-2022 13:30-0400 Hourly Rounding Luis Carlos Jung [facility] Comment on above: Result Comment: pt given discharge instr uctions at this time to follow up with fabiana sunday or states understanding to call office tomorrow for appointment 04-02-2022 12:30-0400 Hourly Rounding Luis Carlos Jung [facility] Comment on above: Result Comment: pt returns to bed from r estroom at this time denies discomfort at this time 04-02-2022 11:30-0400 Hourly Rounding Luis Carlos Jung [facility] Comment on above: Result Comment: pt sitting in bed at thi s time denies needs or discomfort 04-02-2022 06:28-0400 Body temperature 99.68 [degF] Luis Carlos Jung [facility] 04-02-2022 06:28-0400 Diastolic blood pressure 68 mm[Hg] Luis Carlos Jung [facility] 04-02-2022 06:28-0400 Heart rate 89 /min Luis Carlos Jung [facility] 04-02-2022 06:28-0400 Heart rate 86 /min Luis Carlos Jung [facility] 04-02-2022 06:28-0400 Mean blood pressure 83 mm[Hg] Luis Carlos Jung [facility] 04-02-2022 06:28-0400 Respiratory rate 20 /min Luis Carlos Jung [facility] 04-02-2022 06:28-0400 SaO2% (BldA) [Mass fraction] 98 % Luis Carlos Jung [facility] 04-02-2022 06:28-0400 Systolic blood pressure 114 mm[Hg] Luis Carlos Jung [facility] 03-23-2022 21:08-0400 Hourly Rounding Luis Carlos Jung [facility] Comment on above: Result Comment: Patient ambulatory off u nit. No signs or symptoms of distress noted. 03-23-2022 20:35-0400 Hourly Rounding Luis Carlos Jung [facility] Comment on above: Result Comment: Patient updated on plan of care. Verbalizes understanding. Call light in reach. 03-23-2022 19:49-0400 Blood Pressure Location Luis Carlos Jung [facility] 03-23-2022 19:49-0400 Body temperature 98.78 [degF] Luis Carlos Jung [facility] 03-23-2022 19:49-0400 Diastolic blood pressure 66 mm[Hg] Luis Carlos Jung [facility] 03-23-2022 19:49-0400 Heart rate 69 /min Luis Carlos Jung [facility] 03-23-2022 19:49-0400 Hourly Rounding Luis Carlos Jung [facility] Comment on above: Result Comment: Patient arrives on unit. 03-23-2022 19:49-0400 Mean blood pressure 79 mm[Hg] Luis Carlos Jung [facility] 03-23-2022 19:49-0400 Respiratory rate 16 /min Luis Carlos Jung [facility] 03-23-2022 19:49-0400 Systolic blood pressure 106 mm[Hg] Luis Carlos Jung [facility] 10-14-2020 13:15-0500 Pulse (Heart Rate) 74 /min Regine Chow [facility] 10-14-2020 13:15-0500 Pulse Oximetry 98 % [facility] 10-14-2020 13:15-0500 Respiratory Rate 16 /min [facility] 10-14-2020 13:00-0500 BP Diastolic 74 mm[Hg] [facility] 10-14-2020 13:00-0500 BP Systolic 123 mm[Hg] [facility] 10-14-2020 10:13-0500 BMI (Body Mass Index) 34.33 kg/m2 [facility] 10-14-2020 10:13-0500 Body Temperature 97.81 [degF] [facility] 10-14-2020 10:13-0500 Body weight 90.72 kg [facility] 10-14-2020 10:13-0500 Height 162.6 cm [facility] 08-09-2020 20:33-0400 BP Diastolic 81 mm[Hg] [place] 08-09-2020 20:33-0400 BP Systolic 122 mm[Hg] [place] 08-09-2020 20:33-0400 [facility] ([facility] Rate) 78 [facility] [place] [place] [facility]-2020 20:33-0400 Respiratory Rate 16 /min [place] 08-09-2020 19:03-0400 BMI (Body Mass Index) 39.48 kg/m2 [facility] [place] [place] 08-09-2020 19:03-0400 Body Temperature 98.29 [degF] [facility] [place] 08-09-2020 19:03-0400 Body weight 104.33 kg [place] 08-09-2020 19:03-0400 Height 162.6 cm [place] 08-09-2020 19:03-0400 Pulse Oximetry 98 % [place] Encounters Encounter Date Encounter Type Care Provider Facility Start: 11-06-2024 End: 11-06-2024 Patient encounter procedure Rashaun Amador DO Work Phone: [facility] Comment on above: Pre-op examination; Menorrhagia with regular cycle; Abnormal uterine bleeding; Pelvic pain in female Start: 11-06-2024 End: 11-06-2024 Preprocedural examination done Rashaun Perry DO Work Phone: [facility] Start: 11-06-2024 End: 11-06-2024 ambulatory RASHAUN PERRY Not Available Start: 10-02-2024 End: 10-02-2024 Clinisync Result Encounter Rashaun Perry DO Work Phone: [facility] Unsolicited Start: 10-02-2024 End: 10-02-2024 Clinisync Result Encounter Rashaun Perry DO Work Phone: [facility] Unsolicited Start: 09-09-2024 End: 09-09-2024 Office outpatient visit 15 minutes Rashaun Perry DO Work Phone: [facility] Comment on above: Menorrhagia with reg ular cycle Start: 03-11-2024 End: 03-12-2024 ambulatory ZORAN MYRICK Facility:[facility] Start: 02-08-2024 End: 02-08-2024 ambulatory [facility] Dept Facility:[facility] Start: 02-08-2024 End: 02-08-2024 ambulatory [facility] Dept Work Phone: [facility] Work Phone: Start: 02-08-2024 End: 02-08-2024 Departed Referred [facility] Dept Work Phone: [facility] Start: 01-22-2024 End: 01-22-2024 ambulatory RASHAUN PERRY Not Available Start: 12-04-2023 End: 12-04-2023 ambulatory RASHAUN PERRY Not Available Start: 11-27-2023 Bamboo flowsheet Rashaun Perry D O Work Phone: [facility] Start: 11-27-2023 Bamboo flowsheet Rashaun Perry D O Work Phone: [facility] Start: 11-27-2023 Clinisync Result Encounter Rashaun Perry DO Work Phone: [facility] Unsolicited Start: 11-27-2023 End: 11-27-2023 Office outpatient visit 15 minutes Rashaun Perry DO Work Phone: [facility] Comment on above: Third trimester preg anh; Hypothyroidism (acquired) (CMS/HCC) Start: 11-27-2023 End: 11-27-2023 ambulatory RASHAUN PERRY Not Available Start: 11-20-2023 End: 11-20-2023 Office outpatient visit 15 minutes Rashaun Perry DO Work Phone: [facility] Comment on above: Third trimester preg anh Start: 11-20-2023 End: 11-20-2023 ambulatory RASHAUN PERRY Not Available Start: 11-05-2023 End: 11-30-2023 Pre-admission assessment Rashaun R PERRY [facility] Start: 11-04-2023 End: 11-04-2023 ambulatory Rashaun R PERRY Facility:[facility] Start: 11-04-2023 End: 11-04-2023 OB Triage Rashaun R PERRY [facility] Start: 08-23-2023 End: 08-23-2023 Lab Drop off ZORAN MYRICK [facility] Start: 08-23-2023 End: 08-24-2023 ambulatory ZORAN MYRICK Facility:[facility] Start: 08-19-2023 End: 09-14-2023 Pre-admission assessment Julia Haywood [facility] Start: 08-18-2023 End: 08-18-2023 ambulatory DO Julia Haywood Facility:[facility] Start: 08-18-2023 End: 08-18-2023 OB Triage Julia Gonsalez Yobany [facility] Start: 07-25-2023 End: 07-25-2023 Emergency department patient visit Kristian Guillermo Facility:[facility] Start: 07-25-2023 End: 07-25-2023 Emergency department patient visit Kristian Guillermo [facility] Start: 06-28-2023 End: 06-29-2023 ambulatory Roverto V. Spasic Facility:[facility] Start: 06-28-2023 End: 06-28-2023 Patient encounter procedure Roverto V. Spasic [facility] Start: 06-14-2023 End: 06-14-2023 Emergency department patient visit Kristian Guillermo Facility:[facility] Start: 06-14-2023 End: 06-14-2023 Emergency department patient visit Kristian Guillermo [facility] Start: 06-12-2023 End: 06-13-2023 ambulatory Luis Carlos Jung Facility:[facility] Start: 06-12-2023 End: 06-12-2023 Patient encounter procedure Luis Carlos Jung [facility] Start: 05-21-2023 End: 05-22-2023 Emergency department patient visit Gopi Rodriguez Facility:[facility] Start: 05-21-2023 End: 05-21-2023 Emergency department patient visit Gopi Rodriguez [facility] Start: 04-30-2023 End: 05-01-2023 ambulatory Luis Carlos Jung Facility:[facility] Start: 04-30-2023 End: 04-30-2023 Lab Drop off Luis Carlos Jung [facility] Start: 04-30-2023 End: 05-01-2023 ambulatory Luis Carlos Rochelle Jung Facility:[facility] Start: 04-30-2023 End: 04-30-2023 Patient encounter procedure Luis Carlos Byrd Fabiana [facility] Start: 04-26-2023 End: 04-26-2023 Emergency department patient visit Laura Noel Facility:[facility] Start: 04-26-2023 End: 04-26-2023 [facility] Start: 01-31-2023 End: 01-31-2023 Emergency department patient visit Kristian Guillermo [facility] Start: 09-22-2022 End: 09-22-2022 OB Triage Luis Carlos Byrd Fabiana [facility] Start: 09-20-2022 End: 09-20-2022 OB Triage Luis Carlos Byrd Fabiana [facility] Start: 09-19-2022 End: 09-19-2022 OB Triage Jj MOOREDIETER [facility] Start: 09-14-2022 End: 09-14-2022 OB Triage Luis Carlos Byrd Fabiana [facility] Start: 09-12-2022 End: 09-12-2022 OB Triage Luis Carlos Jung [facility] Start: 09-08-2022 End: 09-08-2022 OB Triage Luis Carlos Jung [facility] Start: 09-05-2022 End: 09-05-2022 Emergency department patient visit Gopi Rodriguez [facility] Start: 09-05-2022 End: 12-05-2022 Patient encounter procedure SELF REFERRAL [facility] Start: 09-04-2022 End: 09-04-2022 Lab Drop off Luis Carlos Rochelle Jung [facility] Start: 08-30-2022 End: 08-31-2022 OB Triage Luis Carlos Rochelle Jung [facility] Start: 08-22-2022 End: 08-22-2022 OB Triage Luis Carlos Jung [facility] Start: 08-18-2022 End: 08-18-2022 OB Triage Luis Carlos Jung [facility] Start: 08-13-2022 End: 08-13-2022 OB Triage Luis Carlos Rochelle Jung [facility] Start: 07-26-2022 End: 07-26-2022 OB Triage Luis Carlos Byrd Fabiana [facility] Start: 07-17-2022 End: 07-17-2022 Emergency department patient visit Ko Dumas [facility] Start: 06-28-2022 End: 06-28-2022 Patient encounter procedure Luis Carlos Jung [facility] Start: 06-26-2022 End: 06-26-2022 OB Triage Luis Carlos Jung [facility] Start: 06-20-2022 End: 07-15-2022 Pre-admission assessment Luis Carlos Jung [facility] Start: 06-18-2022 End: 06-19-2022 OB Triage Luis Carlos Jung [facility] Start: 05-02-2022 End: 06-15-2022 Pre-admission assessment THANG MILLAN [facility] Start: 05-01-2022 End: 05-01-2022 OB Triage Luis Carlos Jung [facility] Start: 04-02-2022 End: 04-02-2022 OB Triage Luis Carlos Jung [facility] Start: 03-23-2022 End: 03-23-2022 OB Triage Luis Carlos Jung [facility] Start: 03-16-2022 End: 03-16-2022 Patient encounter procedure Luis Carlos Rochelle Jung [facility] Start: 02-15-2022 End: 02-15-2022 Lab Drop off Luis Carlos Byrd Fabiana [facility] Start: 02-23-2021 End: 02-23-2021 Patient encounter procedure Martha Webb MD Work Phone: [facility] Start: 02-23-2021 Results Only Martha Webb MD Work Phone: Gastroenterology Start: 10-14-2020 End: 10-14-2020 Emergency department patient visit PHYSICIAN NO [facility] Start: 10-14-2020 End: 10-14-2020 Emergency department patient visit Regine Chow Work Phone: [facility] Emergency Department Comment on above: Vertigo (Primary Dx) Start: 08-09-2020 End: 08-09-2020 Emergency department patient visit [facility] Start: 08-09-2020 End: 08-09-2020 Emergency department patient visit [facility] Work Phone: [facility] ED Comment on above: Contusion of right k nee, initial encounter (Primary Dx); Contusion of multiple sites of right shoulder and upper arm, initial encounter Start: 07-23-2017 End: 07-23-2017 Emergency department patient visit NKECHI TORRES [facility] Procedures Date Procedure Procedure Detail Performing Clinician Start: 10-02-2024 ALL CBC WITH AUTO DIFF Rashaun Perry DO Work Phone: Start: 11-27-2023 ALL THYROID STIM HORMONE Rashaun [...] count with white cell differential, automated Susan Coreylod Work Phone: Start: 10-14-2020 Complete blood count [...] 05-12-2028 Tetanus vaccination Tetanus: Every 1 0yrs [facility] Start: 04-30-2028 Screening for malign ant neoplasm of cervix [facility] Start: 10-27-2024 End: 10-27-2024 Patient encounter procedure 10/27/2024 10:30 AM EST Procedure Visit [facility] [address] [address] Rashaun Amador, DO [address] [place], [place] [id number] [facility] Start: 09-09-2024 End: 09-09-2025 aPTT in Blood by Coagulation assay APTT Lab Routine Menorrhagia with regular cycle Expected: 09/09/2024 (Approximate), Expires: 09/09/2025 [facility] Comment on above: Expected: 09/09/2024 (Approximate), Expires: 09/09/2025 Start: 09-09-2024 End: 09-09-2025 US for US PELVIS-TRANSVAG IF INDICATED Imaging Routine Menorrhagia with regular cycle Expected: 09/09/2024 (Approximate), Expires: 09/09/2025 [facility] Comment on above: Expected: 09/09/2024 (Approximate), Expires: 09/09/2025 Start: 06-15-2024 Influenza vaccination Influenza Vacc ine (#1) [facility] Start: 01-22-2024 End: 01-22-2024 Patient encounter procedure 01/22/2024 8:40 AM EDT Consult [facility] OB [address] [address] Rashaun Amador, [address] [place] [address] [facility] Start: 12-04-2023 End: 12-04-2023 Patient encounter procedure 12/04/2023 9:00 AM EST Routine [facility] [address] [address] Rashaun Amador, [address] [place] [address] [facility] Start: 11-27-2023 End: 11-27-2024 [...] AM EST Ancillary Procedure [facility] [address] [place] [address] [place] [id number] [facility] Start: 06-15-2021 Influenza vaccination INFLUENZ A (Season Ended) [facility] Start: 06-15-2020 Influenza vaccination Flu vaccine (# 1) [place], [place] Start: 2014 PAP TESTING PAP TESTING [facility] Start: 2014 Screening for malign ant neoplasm of cervix Cervical cancer screen [place] Start: 2012 DTaP/Tdap/Td vaccine (1 - Tdap) DTaP/Tdap/Td vaccine (1 - Tdap) [place] Start: 2012 Urine microalbumin profile DTAP,TDAP,TD (1 - Tdap) [facility] Start: 2011 Hepatitis C antibody , confirmatory test Hepatitis C Screening [facility] Start: 2011 HEPATITIS C SCREENING HEPATITIS C SC REENING [facility] Start: 2011 HIV SCREENING [facility]CRE[facility]ING [facility] Start: 2008 [facility] [place] [place] Start: 2005 Adolescent depressio n screening assessment [facility] Start: 2004 HPV vaccine (1 - 2-d ose series) HPV vaccine (1 - 2-dose series) [place] Start: 1996 History and physical examination, annual for health maintenance Wellness Visit [facility] Start: 1994 Varicella vaccine (1 of 2 - 2-dose childhood series) Varicella vaccine (1 of 2 - 2-dose childhood series) [place] Start: 1993 Screening for malign ant neoplasm of cervix Pap Smear [facility] CBC W Auto Different ial panel - Blood CBC and differential Lab Routine Menorrhagia with regular cycle Ordered: 09/09/2024 [facility] Work Phone: Comment on above: Ordered: 09/09/2024 hCG, quantitative, hCG, quantitative, Lab Routine Menorrhagia with regular cycle Ordered: 09/09/2024 [facility] Comment on above: Ordered: 09/09/2024 Hemoglobin A1c/Hemoglobin.total in Blood Hemoglobin A1c Lab Routine Menorrhagia with regular cycle Ordered: 09/09/2024 [facility] Comment on above: Ordered: 09/09/2024 Prothrombin time (PT ) in Blood by Coagulation assay Protime-INR Lab Routine Menorrhagia with regular cycle Ordered: 09/09/2024 [facility] Comment on above: Ordered: 09/09/2024 PT ED PATIENT INFORMATION PT ED PATIENT INFORMATION Other 02/23/2021 [facility] Thyrotropin [Units/volume] in Serum or Plasma TSH Lab Routine Menorrhagia with regular cycle Ordered: 09/09/2024 [facility] Comment on above: Ordered: 09/09/2024 Thyroxine (T4) free [Mass/volume] in Serum or Plasma T4, free Lab Routine Menorrhagia with regular cycle Ordered: 09/09/2024 [facility] Comment on above: Ordered: 09/09/2024 [place] [facility] Immunizations Immunization Date Immunization Notes Care Provider Lennox ramirez 08-18-2023 influenza, seasonal, injectable Juila Haywood [facility] 08-18-2023 influenza virus vaccine, unspecified formulation Rashaun Amador DO Work Phone: [facility] 09-25-2022 influenza, seasonal, injectable SELF REFERRAL [facility] Comment on above: Early/Late Reason: E isaac/Late Reason: Nursing Judgment 01-28-2021 COVID-19, mRNA, LNP- S, PF, 30 mcg/0.3 mL dose; Translations: [Pfizer-BioNTech COVID-19 Vaccine] Luis Carlos Fabiana [facility] Comment on above: Reason for Medicatio n: Prophylaxis Reason for Medicatio n: Prophylaxis 12-31-2020 COVID-19, mRNA, LNP- S, PF, 30 mcg/0.3 mL dose; Translations: [Pfizer-BioNTech COVID-19 Vaccine] Luis Carlos Fabiana [facility] Comment on above: Reason for Medicatio n: Prophylaxis Reason for Medicatio n: Prophylaxis 05-12-2018 tetanus toxoid, reduced diphtheria toxoid, and acellular pertussis vaccine, adsorbed; Translations: [Adacel (Tdap)] Luis Carlos Fabiana [facility] Payers Date Payer Category Payer Self-pay [id number] 2022 Medicaid [employer] [id number] 2022-Present [address] [place] [address] [id number] 2022 Medicaid (Managed Care) [facility] MEDICAID [id number] 2019 Unknown [id number] 2019 Unknown [id number]. [id number] 1993 Unknown [id number] 2.16.840.1.854556.3.579.2. 173 1993 Unknown [id number] 2.16.840.1.899451.3.579.2. 903 1993 Unknown [id number] 2.16.840.1.732437.3.579.2. 727 1993 Unknown [id number] 2.16.840.1.419836.3.579.2. 727 1993 Unknown [id number] 2.16.840.1.478864.3.579.2. 727 1993 Unknown [id number] 2.16.840.1.071765.3.579.2. 727 1993 Unknown [id number] 2.16.840.1.257030.3.579.2. 727 1993 Unknown [id number] 2.16.840.1.429541.3.579.2. 727 1993 Unknown [id number] 2.16.840.1.534571.3.579.2. 727 1993 Unknown [id number] 2.16.840.1.576972.3.579.2. 727 1993 Unknown [id number] 2.16.840.1.958688.3.579.2. 727 1993 Unknown [id number] 2.16.840.1.431704.3.579.2. 727 1993 Unknown [id number] 2.16.840.1.307074.3.579.2. 727 1993 Unknown [id number] 2.16.840.1.511544.3.579.2. 727 1993 Unknown [id number] 2.16.840.1.906872.3.579.2. 727 1993 Unknown [id number] 2.16.840.1.462705.3.579.2. 1259 1993 Unknown [id number] 2.16.840.1.634187.3.579.2. 1259 1993 Unknown [id number] 2.16.840.1.708053.3.579.2. 1259 1993 Unknown [id number] 2.16.840.1.289856.3.579.2. 1259 1993 Unknown [id number] 2.16.840.1.410598.3.579.2. 1259 Unknown [id number] 2.16.840.1.931110.3.579.2. 531 Social History Date Type Detail Facility Start: 08-09-2020 End: 10-14-2020 Tobacco smoking status NHIS Current every day smoker [place] Start: 08-09-2020 End: 10-14-2020 Tobacco use and exposure Never used [place] Start: 10-14-2020 Alcohol intake Ex-drinker (finding) [facility] Start: 1995 Sex Assigned At Not on file [place] Exposure to SARS-CoV -2 (event) Not sure [place] Start: 08-09-2020 Cigarettes smoked current (pack per day) - Reported [place] Start: 08-09-2020 Alcohol intake Lifetime non-d val (finding) [place] Start: 08-09-2020 History SDOH Alcohol Frequency 1 [place] Start: 07-06-2021 End: 08-18-2022 Tobacco smoking status Light tobacco smoker (finding) [facility] Sex Assigned At Female [facility] Tobacco [facility] Comment on above: current current denies Start: 06-28-2023 Tobacco smoking status Ex-smoker (fi nding) [facility] Comment on above: current Tobacco smoking status Never [facility] Comment on above: current Tobacco smoking status No Smokin g Status Entered [facility] Tobacco smoking stat [facility] Tobacco smoking consumption unknown [facility] Start: 04-02-2023 [facility] Start: 1995 Sex Assigned At Female [facility] Start: 07-03-2023 Gender identity Identifies as female gender (finding) [facility] Start: 07-03-2023 Sexual orientation Heterosexual (fin ding) [facility] Start: 04-10-2020 Tobacco smoking stat [facility] Smoker (finding) [facility] Goals Date Patient Goal Desired Activity /State Personal health goal Functional Status Date Assessment Result Facility 11-04-2023 Functional Status N/A [facility] 08-18-2023 Functional Status N/A [facility] 07-25-2023 Functional Status N/A [facility] 06-28-2023 Functional Status N/A [facility] 06-14-2023 Functional Status N/A [facility] 05-21-2023 Functional Status N/A [facility] 04-26-2023 Functional Status N/A [facility] 01-31-2023 Functional Status N/A [facility] 09-22-2022 Functional Status N/A [facility] 09-20-2022 Functional Status N/A [facility] 09-19-2022 Functional Status N/A [facility] 09-14-2022 Functional Status N/A [facility] 09-12-2022 Functional Status N/A [facility] 09-08-2022 Functional Status N/A [facility] 09-05-2022 Functional Status Yes [facility] 08-30-2022 Functional Status N/A [facility] 08-22-2022 Functional Status N/A [facility] 08-18-2022 Functional Status N/A [facility] 08-13-2022 Functional Status N/A [facility] 07-26-2022 Functional Status N/A [facility] 07-17-2022 Functional Status N/A [facility] 06-26-2022 Functional Status N/A [facility] 06-18-2022 Functional Status N/A [facility] 05-01-2022 Functional Status N/A [facility] 04-02-2022 Functional Status N/A [facility] Clinical Notes 03-10-2021 to 11-06-2024 Jo Willinghamkarel - 11/06/2024 9:30 AM Alessandro Suggs LPN - 09/09/2024 8:50 AM Alessandro Suggs LPN - 11/27/2023 8:30 AM Alessandro Suggs LPN - 11/20/2023 11:10 AM EST Note Date & Type Note Facility 11-06-2024 History of Present illness Narrative Reason for Appointment: Patient ID: Susan Bro is a 29 y.o. female who presents for EMBX and Pre-op Visit Patient presents today for Pre Op/Endometrial Biopsy appointment. Patient is scheduled to undergo Endometrial Ablation with Jacey on 11/21/[address] Amador at [facility]. MEDICATIONS Current Outpatient Medications Medication Instructions citalopram [...] Surgical History: Procedure Laterality Date CHOLECYSTECTOMY 2019 SALPINGECTOMY Bilateral 02/08/[address] Amador at [facility] REVIEW OF SYSTEMS Review of Systems: Review of Systems Constitutional: Negative. HENT: Negative. Eyes: Negative. Respiratory: Negative. Cardiovascular: Negative. Gastrointestinal: Negative. Genitourinary: Positive for menstrual problem and pelvic pain. Musculoskeletal: Negative. Skin: Negative. Neurological: Negative. All [...] nursing note reviewed. Exam conducted with a cashier parking lot present. Vitals: Estimated body mass index is 34.33 kg/m as calculated from the following: Height as of 01/22/24: 5' 3 . Weight as of 01/22/24: 193 lb 12.8 oz. BP: No LMP recorded. ASSESSMENT & PLAN ICD-10-CM 1. Pre-op examination Z01.818 2. Menorrhagia with regular cycle N92.0 3. Abnormal uterine bleeding N93.9 4. Pelvic pain in female R10.2 EMBX: Patient was placed in dorsal lithotomy position with feet in stirrups. A sterile speculum was placed into the vagina and the cervix was visualized. The cervix was grasped with a single tooth tenaculum. The endometrial pipette was placed through the cervix into the uterus, endometrial curettage was performed and sampling was obtained, endometrial curettings were placed in formalin, and single tooth tenaculum was removed. Excellent hemostasis was assured. All instruments were removed from vagina. Pre Op: Patient is doing well but has complaints of bleeding and pelvic pain. Patient has tried hormone therapy in the past but all attempts to subside patients issues have failed. I have discussed conservative management vs. surgical management with the patient in detail and patient desires surgical management at this time. Patient will undergo Endometrial Ablation with Jacey on 11/21/2024. Surgical consents were signed, mmc was reviewed, and patient is to proceed to [facility] OR. Follow Up: Patient is to follow up between 1-2 weeks post op to assess proper healing and recovery from procedure. Follow Up: Patient is to follow up between 1-2 weeks post op to assess proper healing and recovery from procedure. Documented by Charlene Duarte LPN on behalf of: Rashaun Amador DO documented in this encounter [facility] 09-09-2024 History of Present illness Narrative Reason [...] nursing note reviewed. Exam conducted with a cashier parking lot present. Vitals: Estimated body mass index is [...] Rashaun Amador DO documented in this encounter [facility] 11-27-2023 History of Present illness Narrative Reason [...] nursing note reviewed. Exam conducted with a cashier parking lot present. Vitals: There is no height or [...] Rashaun Amador DO documented in this encounter [facility] 11-20-2023 History of Present illness Narrative Reason [...] Problems Past Medical History: Diagnosis Date Depression ([facility]) Dysphagia Low thyroid stimulating hormone (TSH) level [...] nursing note reviewed. Exam conducted with a cashier parking lot present. Vitals: There is no height or [...] Rashaun Amador DO documented in this encounter [facility] 11-04-2023 Evaluation + Plan note Diagnostic Tests PendingUrine Culture 11/04/23 [facility] 11-04-2023 Note The following Patien t Education Materials have been given to the patient: EducationMaterial [facility] 11-04-2023 Hospital Discharge instructions Follow Up Care 11/04/2023 07:55:34 With:Rashaun AMADOR Address: [address] , [place] [address] Business (1) When:11/06/2023 Comments:Call for any problems.Appointment has already been scheduledCall physician if symptoms worsenPlease call if you need to rescheduleReturn for contractions closer, longer, harderReturn for decreased movementReturn if ruptured membranes or vaginal bleeding [facility] 08-23-2023 Evaluation + Plan note Diagnostic Tests PendingT3 Total 08/23/23 [facility] 08-18-2023 Note The following Patien t Education Materials have been given to the patient: EducationMaterial [facility] 08-18-2023 Hospital Discharge instructions Patient Education 08/18/2023 08:14:46 Second Trimester of , Pmsh-fc-Zbmu Second Trimester of The second trimester of [...] Follow these instructions at home: Medicines Take sukk-cca-qjelvbo and prescription medicines only as told by [...] a counselor. Where to find more information [employer]: americanpregnancy.org [employer]: www.acog.org Office [...] provider. Document Revised: 03/09/2021 Document Reviewed: 01/13/2021 [employer] Patient Education 2022 [employer]. [facility] 07-25-2023 Evaluation + Plan note [...] Diagnostic Tests Pending * Urine Culture 07/25/23 [facility]10-11-2023 Hospital Discharge instructions Patient Education [...] to keep your urine pale yellow. Take swul-opy-wlwswge and prescription medicines only as told by [...] provider. Document Revised: 06/14/2021 Document Reviewed: 06/14/2021 [employer] Patient Education 2022 [employer]. Follow Up Care 07/25/2023 08:14:26 With:Luis Carlos Jung Address: [address] [address] Business (1) When:07/28/2023 09:56:27 [facility]09-14-2023 Evaluation + Plan note Diagnostic Tests Pending * Urine Culture 06/28/23 [facility]09-14-2023 Hospital Discharge instructions Patient Education 06/28/2023 11:39:14 Urinary Tract Infection, Adult, Xffs-fh-Jkny Urinary Tract Infection, Adult A urinary tract [...] Follow these instructions at home: Medicines Take lpmb-lbt-dmpprlw and prescription medicines only as told by [...] provider. Document Revised: 05/13/2021 Document Reviewed: 05/13/2021 [employer] Patient Education 2022 [employer]. 06/28/2023 11:39:14 Urinary Tract Infection, Adult, Phpf-mq-Ssbs Urinary Tract Infection, Adult A urinary tract [...] Follow these instructions at home: Medicines Take igab-ais-mondnzv and prescription medicines only as told by [...] provider. Document Revised: 05/13/2021 Document Reviewed: 05/13/2021 [employer] Patient Education 2022 [employer]. Follow Up Care 06/28/2023 10:22:58 With:Fabiana MARION, Luis Carlos Byrd, ORS Address: [address] [place] [id number] When: Unknown [facility] 08-31-2023 Evaluation + Plan noteExtracted from: Title:ED Note Author:Jos Ugalde PA-C te:06/14/23 1. Abdominal pain (R10.9: Un specified abdominal pain) Orders: ABO/Rh Automated Diff Basic Metabolic Panel Beta hCG Quantitative CBC w/ Auto Diff eGFR Extra Blue Tube Extra SST Tube Hepatic Function Panel Lipase Level UA With Cult Reflex US 1st Trimester [facility]08-08-2023 Hospital Discharge instructions Patient Education 05/21/2023 23:23:44 Nonspecific Chest Pain, Adult, Slxi-yo-Uqqe Nonspecific Chest Pain Chest pain can be [...] Follow these instructions at home: Medicines Take flpp-vey-omwoejl and prescription medicines only as told by [...] a heart-healthy diet. A diet and nutrition representative (dietitian) can help you to learn healthy [...] provider. Document Revised: 12/15/2021 Document Reviewed: 12/15/2021 [employer] Patient Education 2022 [employer]. 05/21/2023 23:23:44 Nausea and Vomiting, Adult, Udfs-cv-Xfvs Nausea and Vomiting, Adult Nausea is feeling [...] fruit juice). ?Low-calorie sports drinks. Eat bland, zpot-of-xharil foods in small amounts as you are able, such as: ?Bananas. ?Applesauce. ?Rice. ?Low-fat (lean) meats. ?[place]. ?Crackers. Avoid drinking fluids that have a lot of sugar or caffeine in them. This includes energy drinks, sports drinks, and soda. Avoid alcohol. Avoid spicy or fatty foods. General instructions Take fpdc-gnp-fjnuacd and prescription medicines only as told by your doctor. Drink enough fluid to keep your pee (urine) pale yellow. Wash your hands often with soap and water for at least 20 seconds. If you cannot use soap and water, use hand virologist. Make sure that everyone in your home [...] your doctor about eating and drinking. Take rxgj-eex-cuvaqdl and prescription medicines only as told by your doctor. Contact your doctor if your symptoms get worse or you have new symptoms. Keep all follow-up visits. This information is not intended to replace advice given to you by your health care provider. Make sure you discuss any questions you have with your health care provider. Document Revised: 04/07/2022 Document Reviewed: 04/07/2022 [employer] Patient Education 2022 [employer]. 05/21/2023 23:23:44 Abdominal Pain During , Lmxf-dq-Mygm Abdominal Pain During Belly (abdominal) pain is [...] keep your pee (urine) pale yellow. Take mmen-apx-okshude and prescription medicines only as told by [...] provider. Document Revised: 06/14/2021 Document Reviewed: 06/14/2021 [employer] Patient Education 2022 [employer]. Follow Up Care 05/21/2023 20:38:52 With:Luis Carlos Jung Address: [address] [place], [place] [address] [id number] Business (1) When:05/24/2023 Comments:Take the Pepcid once daily until you have completed the course. You can use the Zofran every 6 hours as needed for nausea and vomiting. Please follow-up with your primary care doctor next 2 to 3 days. Please return to the ED for any new or worsening symptoms. [facility]08-07-2023 Evaluation + Plan noteExtracted from: [...] day(s), # 15 cap(s), Refills(s) 0, Pharmacy: [facility], 162.6, cm, 05/21/23 20:50:00 EDT, Height/Length Dosing, 75.3, kg, 05/21/23 20:50:00 EDT, Weight Dosing famotidine, 20 mg = 2 mL, Soln-IV, IV Push, Once, Stop date 05/21/23 21:00:00 EDT, STAT, Start date 05/21/23 21:00:00 EDT, 05/21/23 21:00:00 EDT famotidine, 20 mg = 1 tab(s), Oral, Daily, # 14 tab(s), Refills(s) 0, Pharmacy: [facility], 162.6, cm, 05/21/23 20:50:00 EDT, Height/Length Dosing, 75.3, kg, 05/21/23 20:50:00 EDT, Weight Dosing ondansetron, 4 mg = 2 mL, Injection, IV Push, Once, Stop date 05/21/23 21:00:00 EDT, STAT, Start date 05/21/23 21:00:00 EDT, 05/21/23 21:00:00 EDT ondansetron, 4 mg = 1 tab(s), Oral, q8hr, # 12 tab(s), Refills(s) 0, Pharmacy: [facility], 162.6, cm, 05/21/23 [...] UA With Cult Reflex US 1st Trimester [facility]07-17-2023 Evaluation + Plan note Diagnostic Tests Pending * PAP [id number] * Urine Culture 04/30/23 [facility]07-17-2023 Evaluation + Plan note Diagnostic Tests Pending * RPR with Conf Rfx 04/30/23 * HIV Screen 4th Generation wRfx 04/30/23 * Rubella Antibody IgG 04/30/23 * Hepatitis B Surface Antigen 04/30/23 [facility]07-13-2023 Evaluation + Plan noteExtracted from: Title:ED Note Author:Jos Ugalde PA-C te:04/26/23 Abdominal pain (R10.9: Unspe cified abdominal pain) (Z34.90: Encounter for supervision of normal , unspecified, unspecified trimester) Orders: Beta hCG Quantitative Extra Lav Tube Extra SST Tube US 1st Trimester US Transvaginal [facility]07-13-2023 Hospital Discharge instructions Patient Education [...] to keep your urine pale yellow. Take cqqd-nvj-jcuzycl and prescription medicines only as told by [...] provider. Document Revised: 06/14/2021 Document Reviewed: 06/14/2021 [employer] Patient Education 2022 [employer] Follow Up Care 04/26/2023 08:52:22 With:Luis Carlos Jung Address: [address], [facility] [address] [place] [address] Business (1) When:04/29/2023 10:58:02 [facility]04-19-2023 Evaluation + Plan noteExtracted from: [...] Head eGFR Oxygen Therapy PT & PTT [facility]04-19-2023 Hospital Discharge instructions Patient Education [...] Follow these instructions at home: Medicines Take uftp-tlj-kyncmgl and prescription medicines only as told by your health care provider. Ask your health care provider if the medicine prescribed to you: ?Requires you to avoid driving or using heavy machinery. ?Can cause constipation. You may need to take these actions to prevent or treat constipation: ?Drink enough fluid to keep your urine pale yellow. ?Take ckzc-bwa-aktcruf or prescription medicines. ?Eat foods that are [...] provider. Document Revised: 01/23/2020 Document Reviewed: 11/13/2019 [employer] Patient Education 2022 [employer]. Follow Up Care 01/31/2023 09:42:02 With:THANG MILLAN Address: [address] [place], [place] [id number] [facility] (1) When:02/03/2023 11:57:07 Comments:Call the office [...] fever, or any new or worsening symptoms. [facility]12-09-2022 Hospital Discharge instructions Follow Up Care 09/22/2022 15:11:14 With:Luis Carlos Jung Address: [facility] [address] [address] Business (1) When:09/24/2022 20:30:00 Comments:Appointment has already been scheduledCall for any problems.Call for fever > 100.5 FCall for severe abdominal painCall physician for heavy vaginal bleedingCall physician if symptoms worsenReturn for contractions closer, longer, harderReturn for decreased movementReturn if ruptured membranes or vaginal bleedingCall at 7:30 pm Sunday to confirm induction at 8:30 [facility]12-06-2022 Hospital Discharge instructions Follow Up Care 09/19/2022 01:24:08 With:Luis Carlos Jung Address: [address], [address] [address]- Business (1) When:09/20/2022 Comments:Appointment has already been scheduledCall Dr if fever>100.5 F, heavy bleedingCall for any problems.Call for severe abdominal painCall physician for heavy vaginal bleedingCall physician if symptoms worsenReturn for contractions closer, longer, harderPlease call if you need to rescheduleReturn for decreased movementReturn if ruptured membranes or vaginal bleeding [facility]12-01-2022 Hospital Discharge instructions Patient Education 09/14/2022 11:56:10 Sinus Headache, Udhd-kq-Yvjp Sinus Headache A sinus headache happens when [...] on the bottle or box. Medicines Take fsko-kvf-kjcnhbl and prescription medicines only as told by [...] face, forehead, ears, or upper teeth. Take mcfb-rob-bgmjaqu and prescription medicines only as told by your doctor. If told, apply a warm, moist washcloth to your face. This can help to lessen pain. This information is not intended to replace advice given to you by your health care provider. Make sure you discuss any questions you have with your health care provider. Document Released: 01/31/2012 Document Revised: 09/13/2018 Document Reviewed: 07/12/2018 [employer] Patient Education 2020 Micro Interventional Devices. Follow Up Care 09/14/2022 09:13:06 With:Luis Carlos Jung Address: [address], [address] [place] [address]- Business (1) When:09/20/2022 Comments:Return if ruptured membranes or vaginal bleedingReturn for decreased movementReturn for contractions closer, longer, harderCall physician if symptoms worsenCall for severe abdominal painCall for fever > 100.5 F Drink 8-10 glasses of water/day Use SUDAFED, TYLENOL AND BENADRYL as previouslydirected by Dr Fabiana Longoria [facility]11-29-2022 Hospital Discharge instructions Patient Education 09/12/2022 20:39:28 Third Trimester of , Ovce-sp-Idan Third Trimester of The third trimester is from week 28 through week 40 (months 7 through 9). This trimester is when your unborn baby (fetus) is growing very fast. At the end of the ninth month, the unborn baby is about20 inches in length. It weighs about 6 10 pounds. Follow these instructions at home: Medicines Take edgc-vam-egwppit and prescription medicines only as told by [...] 12/26/2010 Document Revised: 01/22/2020 Document Reviewed: 11/06/2017 [employer] Patient Education 2019 Micro Interventional Devices. Follow Up Care 09/12/2022 19:44:10 With:Luis Carlos Jung Address: [address], [address] [address]- Business (1) When:09/20/2022 Comments:Appointment has already been scheduledCall Dr if fever>100.5 F, heavy bleedingCall for any problems.Call for severe abdominal painCall physician for heavy vaginal bleedingCall physician if symptoms worsenPlease call if you need to rescheduleReturn for contractions closer, longer, harderReturn for decreased movementReturn if ruptured membranes or vaginal bleeding [facility]11-25-2022 Hospital Discharge instructions Follow Up Care 09/08/2022 08:14:23 With:Luis Carlos Jung Address: [address] [facility] Hallie [place] [address] [facility] (1) When:09/11/2022 Comments:Return for contractions closer, longer, harderReturn for decreased movementReturn if rupturedmembranes or vaginal bleeding [facility]11-23-2022 Hospital Discharge instructions Patient Education [...] the coronavirus come from? In September 2019, [place] told the World Health Organization (WHO) of several cases of lung disease (human respiratory illness). These cases were linked to an open seafood and livestock market in the [facility]. The link to the seafood [...] and virus naming World Health Organization (WHO): www.who.int/emergencies/diseases/huibt-tavbexdqbwo-8879/technical-g uidance/npqrqx-ojj-tlnduaueihk-disease-(covid-2019)-uud-lru-hrwkx-jjjp-lxdjnb-ea Who is at risk for complications from [...] relieve his or her symptoms by using wvta-mfj-kyuqcnd medicines that treat sneezing, coughing, and runny [...] water are not available, use alcohol-based hand virologist. Avoid touching your face, mouth, nose, or [...] Prevention (CDC): www.cdc.gov/coronavirus/2019-ncov/travelers/index.html World Health Organization (WHO): www.who.int/emergencies/diseases/pweil-tfsrwadyzsx-5824/travel-advice Know the risks and take action to [...] water are not available, use alcohol-based hand virologist. Cough or sneeze into a tissue, sleeve, [...] in hot, soapy water or use a glass cutter. Air-dry your dishes. Wash laundry in hot [...] Health Organization (WHO) Information and news updates: www.who.int/emergencies/diseases/sikjs-zdgqndbsdab-5501 Coronavirus health topic: www.who.int/health-topics/coronavirus Questions and answers on COVID-19: www.who.int/news-room/q-a-detail/l-b-huzxrdkpxklbi Global tracker: [employer] [place] Academy of Pediatrics (AAP) Information for families: www.healthychildren.org/Bangladeshi/health-issues/conditions/chest-lungs/Pages /7319-Hduel-Ybfnpwcklcy.aspx The coronavirus situation is changing rapidly. Check [...] 01/27/2020 Document Revised: 01/27/2020 Document Reviewed: 01/27/2020 [employer] Patient Education 2019 Micro Interventional Devices. 09/05/2022 22:13:40 COVID-19 COVID-19 COVID-19 is a [...] to fight infection (immunocompromised). Live in a custodial or long-term care facility. Have a long-term [...] managed at home with rest, fluids, and ltzd-jgm-fjivpzh medicines. Treatment for a serious infection usually [...] are safe for you. General instructions Take yxuq-svf-ixcfeli and prescription medicines only as told by [...] water are not available, usean alcohol-based hand virologist. ?Avoid touching your mouth, face, eyes, or [...] water are not available, use alcohol-based hand virologist. Stay away from other members of your [...] have a weak immunity, live in a custodial, or have chronic disease. There is no [...] 11/06/2019 Document Revised: 02/26/2020 Document Reviewed: 11/06/2019 [employer] Patient Education 2020 Micro Interventional Devices. Follow Up Care 09/05/2022 20:08:29 With:Luis Carlos Jung Address: [facility] [address] [address] Business (1) When:09/08/2022 21:42:10 Comments:Use the albuterol inhaler 2 puffs every 4 hours for the next 2 to 3 days, you can use the Zofran every 6 hours as needed for nausea and vomiting. Please follow-up with your primary care doctor in thenext 2 to 3 days. Please return to the ED for any new or worsening symptoms. With:THANG MILLAN Address: [address] [place] [address] Business (1) When:09/08/2022 21:42:06 [facility]11-22-2022 Evaluation + Plan noteExtracted from: [...] Nausea/Vomiting, # 12 tab(s), Refills(s) 0, Pharmacy: [facility], 163, cm, 09/05/22 [...] Therapy PT & PTT Rapid COVID Antigen ([facility]) Saline Lock Insert Troponin 0 Hr. XR Chest Single View Future Appointments Appointment Date:09/06/2022 07:00:00 AM Scheduled Provider: [facility] Type:Outpatient COVID Testing [facility]11-21-2022 Evaluation + Plan note Diagnostic Tests Pending * Group B Streptococcus colonization by PCR 09/04/22 [facility]11-17-2022 Hospital Discharge instructions Patient Education 08/31/2022 00:56:47 Third Trimester of , Vwxf-aa-Wmbp Third Trimester of The third trimester is from week 28 through week 40 (months 7 through 9). This trimester is when your unborn baby (fetus) is growing very fast. At the end of the ninth month, the unborn baby is about20 inches in length. It weighs about 6 10 pounds. Follow these instructions at home: Medicines Take vpad-wbm-invdudg and prescription medicines only as told by [...] 12/26/2010 Document Revised: 01/22/2020 Document Reviewed: 11/06/2017 [employer] Patient Education 2020 Micro Interventional Devices. Follow Up Care 08/30/2022 21:31:53 With:Luis Carlos Jung Address: [address] [address]- Business (1) When:09/04/2022 Comments:Call for any problems.Call for severe abdominal painCall physician for heavy vaginal bleedingReturnfor contractions closer, longer, harderReturn for decreased movementReturn if ruptured membranes or vaginal bleeding [facility]11-08-2022 Hospital Discharge instructions Follow Up Care 08/22/2022 14:58:59 With:Dr. 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 [facility]11-04-2022 Evaluation + Plan note Diagnostic Tests Pending * Urine Culture 08/18/22 [facility]11-04-2022 Hospital Discharge instructions Follow Up Care 08/18/2022 03:47:49 With:Luis Carlos Jung Address: [address] [facility] [address] [place] [address]- Business (1) When:08/21/2022 08:45:00 Comments:Appointment has already been scheduled, please keep scheduled apptCall for any problems.Call physician if symptoms worsen [facility]10-30-2022 Hospital Discharge instructions Patient Education [...] 09/21/2003 Document Revised: 06/25/2018 Document Reviewed: 04/30/2017 [employer] Patient Education 2020 Micro Interventional Devices. Follow Up Care 08/13/2022 17:29:42 With:Luis Carlos Jung Address: [facility] [address], [address] [place] [address]- Business (1) When:1 to 2 days Comments:Call for any problems.Return for contractions closer, longer, harderReturn for decreased movementReturn if ruptured membranes or vaginal bleeding [facility]10-13-2022 Hospital Discharge instructions Follow Up Care 07/27/2022 01:12:54 With:Dr. Jung [phone] Address:Unknown When:09/24/2022 20:30:00 Comments:Call for any problems.Return if ruptured membranes or vaginal bleedingReturn for decreased movementcontractions every 5 minutes lasting 45 seconds for an hourCall Sunday night at 7:30 PM to assure bed availability for induction [facility]10-12-2022 Hospital Discharge instructions Patient Education [...] Follow these instructions at home: Medicines Take ueed-vgl-svkzvff and prescription medicines only as told by [...] as fried or sweet foods. ?Take an jolg-ebj-eplgxih or prescription medicine for constipation. If you [...] 12/28/2009 Document Revised: 05/28/2019 Document Reviewed: 11/11/2018 [employer] Patient Education 2020 Micro Interventional Devices. Follow Up Care 07/26/2022 07:56:25 With:Luis Carlos Jung Address: [facility] [address], [place] [id number] Business (1) When:08/07/2022 07:45:00 [facility]10-03-2022 Evaluation + Plan noteExtracted from: Title:ED Note Author:Mathew NICHOLS, [place] te:07/17/22 UTI (urinary tract infection ) (N39.0: Urinary tract infection, site not specified) Orders: cephalexin, 500 mg = 1 cap(s), Oral, q12hr, X 5 day(s), # 10 cap(s), Refills(s) 0, Pharmacy: [facility], 162.5, cm, 07/17/22 9:09:00 EDT, Height/Length Dosing, 80, kg, 07/17/22 9:09:00 EDT, Weight Dosing Patient Specific Meds, Each, Misc, Once, Stop date 07/17/22 9:10:34 EDT, Physician Stop, 07/17/22 9:10:34 EDT Influenza A&B Ag Rapid COVID Antigen ([facility]) UA With Cult Reflex [facility]10-03-2022 Hospital Discharge instructions Patient Education [...] 01/26/2012 Document Revised: 01/23/2020 Document Reviewed: 09/04/2019 [employer] Patient Education 2019 Micro Interventional Devices. 07/17/2022 09:55:44 Urinary Tract Infection, Adult Urinary [...] Treatment for this condition includes: Antibiotic medicine. Brxg-rzo-hojiuou medicines to treat discomfort. Drinking enough water [...] Follow these instructions at home: Medicines Take rbwm-tzu-znrujya and prescription medicines only as told by [...] 07/11/2006 Document Revised: 09/18/2019 Document Reviewed: 04/10/2019 [employer] Patient Education 2020 Micro Interventional Devices. Follow Up Care 07/17/2022 09:04:38 With:Luis Carlos Jung Address: [address] [facility] [address] [address] Business (1) When:07/20/2022 09:46:49 With:THANG MILLAN Address: [address] [place] [address] Business (1) When:07/20/2022 09:46:41 Comments:Follow-up with your primary care provider in 3 to 5 days. If symptoms worsen, do not improve, or new symptoms arise please report back to emergency department for further evaluation. [facility]09-14-2022 Evaluation + Plan note Diagnostic Tests Pending * RPR with Conf Rfx 06/28/22 [facility]09-12-2022 Hospital Discharge instructions Patient Education [...] 09/21/2003 Document Revised: 06/25/2018 Document Reviewed: 04/30/2017 [employer] Patient Education 2020 [employer]. 06/26/2022 21:35:59 Form - Movement Counts [...] Carlos Jung Address: [address] [facility] [address] [facility] [address] Business (1) When:07/03/2022 07:45:00 Comments:Call for any problems.Please call if you need to rescheduleReturn for decreased movement [facility]09-05-2022 Hospital Discharge instructions Follow Up Care 06/18/2022 23:33:38 With:Luis Carlos Jung Address: [address] [facility] [address] [place] [address]- Business (1) When:5 to 7 days Comments:Appointment has already been scheduledCall for any problems.Call for fever > 100.5 FCall for severe abdominal painCall physician for heavy vaginal bleedingPlease call if you need to rescheduleReturn for contractions closer, longer, harderReturn for decreased movementReturn if ruptured membranes or vaginal bleeding [facility]07-18-2022 Hospital Discharge instructions Follow Up Care 05/01/2022 17:08:54 With:Luis Carlos Jung Address: [address], [facility] [address] [place] [address]- Business (1) When:05/09/2022 Comments:Return if ruptured membranes or vaginal bleedingReturn for contractions closer, longer, harderCall physician if symptoms worsenCall physician for heavy vaginal bleedingCall for severe abdominal painCall for fever > 100.5 FCall for any problems. drink more fluids including gatorade, take milk of magnesia twice /day until yo u have bowel movements, benefiber daily [facility]06-19-2022 Evaluation + Plan note Diagnostic Tests Pending * Urine Culture 04/02/22 [facility]-19-2022 Hospital Discharge instructions Patient Education 04/02/2022 10:22:48 Second Trimester of , Fklz-ka-Ggwt Second Trimester of The second trimester is [...] Follow these instructions at home: Medicines Take cqkm-yer-jbmfjbs and prescription medicines only as told by [...] 12/26/2010 Document Revised: 01/23/2020 Document Reviewed: 11/06/2017 [employer]il[employer] Patient Education 2020 Micro Interventional Devices. 04/02/2022 10:22:48 Vaginal Bleeding During , Second [...] says that this is safe. Medicines Take rasm-rge-tgvbcmg and prescription medicines only as told by [...] 07/11/2006 Document Revised: 01/20/2020 Document Reviewed: 01/03/2018 [employer]il[employer] Patient Education 2020 Micro Interventional Devices. Follow Up Care 04/02/2022 06:00:26 With:Dr. Jung [phone] Address:Unknown When:2 to 3 days Comments:Call for any problems.Call physician if symptoms worsen [facility]-09-2022 Hospital Discharge instructions Patient Education 03/23/2022 20:39:21 Second Trimester of , Ygky-ms-Betr Second Trimester of The second trimester is [...] Follow these instructions at home: Medicines Take lhfu-fso-tqquqfg and prescription medicines only as told by [...] 12/26/2010 Document Revised: 01/23/2020 Document Reviewed: 11/06/2017 [employer]il[employer] Patient Education 2020 [employer] Inc. 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 [...] grounds. You are around people who have Luxembourgish measles, fifth disease, or chickenpox. You have [...] 03/19/2009 Document Revised: 01/22/2020 Document Reviewed: 10/09/2017 [employer]ilnest Patient Education 2020 Micro Interventional Devices. 03/23/2022 20:39:21 Abdominal Pain During , Rhqr-qn-Lrpn Abdominal Pain During Belly (abdominal) pain is [...] keep your pee (urine) pale yellow. Take xyhq-ccp-kidoyrg and prescription medicines only as told by [...] 09/19/2010 Document Revised: 01/19/2020 Document Reviewed: 01/03/2018 [employer]il[employer] Patient Education 2020 Micro Interventional Devices. Follow Up Care 03/23/2022 19:35:57 With:Luis Carlos Jung Address: [address] [place], [place] [id number] Business (1) When:03/27/2022 10:00:00 Comments:Call for any problems. Call [facility] first, ask to speak directly to Dr. Jung before heading to hospital unless an emergency. Call for severe abdominal pain or worsening pain.Return if vaginal bleedingor ruptured membranes.Wear belly band as much as possible, especially as your belly grows in . [facility]05-04-2022 Evaluation + Plan note Diagnostic Tests Pending * RPR with Conf Rfx 02/15/22 * HIV Screen 4th Generation wRfx 02/15/22 * Rubella Antibody IgG 02/15/22 * Hepatitis B Surface Antigen 02/15/22 * Urine Culture 02/15/22 [facility]06-18-2021 NoteHNO ID: [id number] Author: Bert Negrete, DO Service: ? Author Type: Fellow Type: Progress Notes Filed: 04/01/2021 9:15 AM Note Text: [facility] [address] [place], [place] [address] Martha Webb (Kelsey) [address] [place] [facility] [address] PCP: Thang Millan NP Accompanied by: Mother [...] bed and continue this dose - rizatriptan (MAXALT-TORQUE TESTER) 10 mg disintegrating tablet Take 1 tablet [...] not included)... [facility]06-10-2021 NoteHNO ID: [id number] Author: RT Oliva(R) Service: Nuclear Medicine Author Type: Order Desk Clerk Type: Progress Notes Filed: 03/24/2021 9:39 AM [...] 0740 PATIENT DISCHARGED TO: Ambulatory patient, left [place] department area. A Diagnostic radioactive procedure has taken place, with no further precautions necessary other than routine body substance precautions. More information regarding radiation safety can be found using this link: [email or web address] SIGNATURE: RT Oliva(R) PATIENT NAME: Susan Bro DATE: March 24, 2021 TIME: 9:38 AM PAGER/CONTACT #:[facility]05-27-2021 NoteHNO ID: [id number] Author: Martha Webb MD Service: ? Author [...] biliary ductal dilatation is (more content not included)...[facility] Diagnosis Third trimester state, incidental documented in this encounter [facility] HealthcareEvaluation note* Diagnosis Third trimester state, incidental Hypothyroidism (acquired) (CMS/[facility]) Unspecified hypothyroidism documented in this encounter [facility] HealthcareEvaluation noteNo assessment information availableSumma Health Ctr Work Phone: Evaluation note* Diagnosis Menorrhagia with regular cycle documented in this encounter [facility] HealthcareEvaluation note* Diagnosis Pre-op examination Menorrhagia with regular cycle Abnormal uterine bleeding Unspecified disorder of menstruation and other abnormal bleeding from female genital tract Pelvic pain in female Unspecified symptom associated with female genital organs [facility] N[facility] No data available for this section [facility] No data available for this section [facility] No data available for this section [facility] Summary Purpose Family History Relationship Condition Age at Onset Recorded Date/T ping Not Specified Goiter Unknown grandparent Heart disease Unknown Not Specified Diabetes mellitus Unknown Hypertension Unknown Advance Directives Documents on File Type Date Recorded Patient Distribution Superintendent Expl anation Advance Directives and Livin g Will 10/14/2020 10:22 AM Documents on File Type Date Recorded Patient Distribution Superintendent Expl anation ACP-Advance Directive ACP-Power of Electronic Scale Subassembler Advance Directive Response Recorded Date/ Time Advance Directives No July 24, 2019 9:00am Discharge Instructions * Discharge Instr - Care Coordination* Andra Schmid RN - 10/14/2020 11:43 AM EST [facility] Trust the experts at [facility] to meet your healthcare needs. When you make an appointment with [facility], it's the start of a long-lasting partnership that's committed to your health. We provide the very best prevention, wellness and illness care, and give you access to the advanced medical services and expert treatment available at [facility]. Please note that the provider listed below is accepting patients in your area. [place]: [address] [place] [address] MD Debby Lala MD Christina Spring, CNP For the most up-to-date information on a care provider in your community, use the Find a Doctor tool on [employer]) [facility] * Attachments The following attachments cannot be sent through Care Everywhere. * Vertigo (Bangladeshi) * Arik Maneuver: Vertigo: Exercises (Bangladeshi) documented in this encounter* Instructions* Bakari Valente [...] be sent through Care Everywhere. * Bruises (Bangladeshi) * Contusion (Bangladeshi) documented in this encounter Assessments Diagnosis Vertigo- Primary Dizziness and giddiness Diagnosis Contusion of right knee, initial encounter Contusion of multiple sites of right shoulder and upper arm, initial encounter Additional Source Comments INFORMATION SOURCE (unrecogn ized section and content) DATE CREATED AUTHOR 04/09/2018 [facility] DATE CREATED AUTHOR AUTHOR'S ORGANIZ ATION 08/10/2020 [facility] DATE CREATED AUTHOR AUTHOR'S ORGANIZ ATION 09/07/2020 [facility] DATE CREATED AUTHOR AUTHOR'S ORGANIZ ATION 10/20/2020 [facility] [place] DATE CREATED AUTHOR AUTHOR'S ORGANIZ ATION 03/18/2021 [facility] DATE CREATED AUTHOR AUTHOR'S ORGANIZ ATION 11/15/2021 [facility] DATE CREATED AUTHOR AUTHOR'S ORGANIZ ATION 02/14/2024 [facility] DATE CREATED AUTHOR AUTHOR'S ORGANIZ ATION 03/13/2024 [facility] DATE CREATED AUTHOR AUTHOR'S ORGANIZ ATION 11/08/2024 [facility] EPIC Reason for Visit (unrecogniz ed section and content) Reason Comments Dizziness Reason Comments Knee Pain right knee pain, 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 denies hitting head or any LOC Shoulder Pain rt shoulder, fell ov er dust guzman onto her right side. Reason Comments Routine Visit Reason Comments Menstrual Problem Heavy cycles Reason Comments EMBX Pre-op Visit Susan Griffiths PA-C - 10/14/2020 10:44 AM Amena Cantrell RN - 10/14/2020 10:32 AM EST ED Notes (unrecognized secti on and content) [facility] ED Note: NAME: Susan Bro 24 y.o. CSN: [id number] PCP: Physician No History: Chief Complaint: Dizziness [...] file Gets together: Not on file Attends [employer] service: Not on file Active member of [...] does have reproducible vertigo with position changes. Rqozql-ys-xzfy maneuvers are intact without dysmetria. There is negative Romberg sign. There was no ataxia on ambulation. Psychiatric: Mood and Affect: Mood normal. Behavior: Behavior normal. Thought Content: Thought content normal. Laboratory & Radiological Imaging (if done): Labs Reviewed URINALYSIS - Abnormal; Notable for the following components: Result Value Clarity, Urine Cloudy (*) Specific [place] 1.028 (*) pH, Urine 8.0 (*) Protein, [...] at the following links: For Healthcare Providers: https://www.Asktourism.gov/media/375772/download For Patients: https://www.fda.gov/media/843044/download HCG URINE, QUALITATIVE - Normal CBC AND DIFFERENTIAL Narrative: The following orders were created for panel order CBC w/ Diff. Procedure Abnormality Status --------- ------ CBC Auto Differential[[id number]] Abnormal Final result Please view results for these tests on the individual orders. HCG URINE, QUALITATIVE URINALYSIS CT Head Or Brain Without Contrast Final Result 1. No acute intracranial hemorrhage, focal edema or mass effect. Workstation ID: [id number] EKG: Normal sinus rhythm with sinus arrhythmia RATE: 74 AXIS: Normal axis INTERVALS: NE interval of 178 ms, QRS duration of [...] Antivert. She is referred to follow-up with [facility] or [facility] that she does not currently have a [...] needed for dizziness . [facility]s [facility] Wheel Inspector [facility] Emergency Department Susan Griffiths PA-C 10/14/20 1203 Special isolation precautions are in place with signage outside this patient's room. This personal care attendant performs hand hygiene and enters the patient [...] or prosecute any alcohol or drug abuse patient.[facility] Care Team (unrecognized sect ion and content) Team Status: Active Member Role Status Dates [facility] Primary Care Provider Active Team Status: Inactive Member Role Status Dates [facility] Primary Care Provider Active Start: February 08, 2024 End: February 08, 2024 Rashaun Amador Attending Provider Active Start: Ap 2023 End: February 08, 2024 Goals (unrecognized [...] BE BASED ON THE PRIMARY CLINICAL RECORDS. [employer] provides no warranty or guarantee of the accuracy or completeness of information in this document.
--- NOTE | 2024-11-12 11:25 | XR_ITS ---
The [address] [address] Patient Name: DEANDRA MOCTEZUMA MRN: [id number] date: 1995 Sex: F Assigned Patient Location: [facility] Current Patient Location: [facility] Accession/Order Number: [id number] Exam Date: 11/12/2024 11:20 Report Date: 11/12/2024 21:13 At the request of: JOSSE PURVIS Procedure: XR chest 2V EXAM: XR chest 2V HISTORY: Preop exam COMPARISON: 01/28/2024. TECHNIQUE: Two views. FINDINGS: The heart and mediastinum are unremarkable. Lungs are clear. No focal infiltrates are seen. No effusions are noted. XR/XR chest 2V IMPRESSION: No acute cardiopulmonary pathology. Electronically authenticated by: Leilani JEFFERSON Date: 11/12/2024 21:13
== END 2024-11-12 11:02 | disposition home or self-care (01) ==
PROVIDERS: Visit Provider Obstetrics & Gynecology
DX: Z01.810 Encounter for preprocedural cardiovascular examination (principal); N92.0 Excessive and frequent menstruation with regular cycle; N93.9 Abnormal uterine and vaginal bleeding, unspecified; R10.2 Pelvic and perineal pain
CPT/HCPCS: 71046

== ENCOUNTER 2024-11-21 08:07 | Day surgery (SDC) | payer OTHER, SELFPAY ==
[2024-11-12 11:22] VITALS: BP 110/72; PULSE 66; TEMP 36.6; O2SAT 99; BMI 35.8
[2024-11-21 08:15] VITALS: BP 127/77; PULSE 74; TEMP 36.1; O2SAT 100; BMI 35.2
[2024-11-21 08:16] LABS: Basophils Absolute Auto 0.1 10^3/uL (0.0-0.1); Basophils Percent Auto 1.2 % (0.2-2.0); Eosinophils Absolute Auto 0.1 10^3/uL (0.0-0.7); Eosinophils Percent Auto 1.8 % (0.9-7.0); Hematocrit 42.2 % (36.0-48.0); Hemoglobin 14.1 g/dL (12.0-16.0); Immature Granulocytes Abs Auto 0.01 10^3/uL (0.00-0.03); Immature Granulocytes Pct Auto 0.2 % (0.0-0.5); Lymphocytes Absolute Auto 1.7 10^3/uL (1.2-3.8); Lymphocytes Percent Auto 27.8 % (20.5-60.0); Mean Corpuscular HGB Conc 33.4 g/dL (29.9-35.2); Mean Corpuscular Hemoglobin 29.9 pg (26.7-34.0); Mean Corpuscular Volume 89.6 fL (81.0-99.0); Mean Platelet Volume 9.2 fL (9.5-13.5); Monocytes Absolute Auto 0.4 10^3/uL (0.3-0.8); Monocytes Percent Auto 6.4 % (1.7-12.0); Neutrophils Absolute Auto 3.8 10^3/uL (1.4-6.5); Neutrophils Percent Auto 62.6 % (43.0-75.0); Platelet Count 334 10^3/uL (150-450); Red Blood Count 4.71 10^6/uL (4.20-5.40); Red Cell Distribution Width 11.8 % (11.0-15.0); White Blood Count 6.1 10^3/uL (4.0-11.0)
--- OUTSIDE RECORDS SUMMARY | 2024-11-21 08:27 | XMS_ITS | CCD ---
Author Organization [facility] Care Team Providers Care Import/Export Administrator Name Role Phone NKECHI TORRES Unavailable Unavaila BAKARI Liriano Attending Unavailable THANG MILLAN Primary Care Unavailable No, Physician Primary Care Provider Unavailerum BRODY, PHYSICIAN Primary Care Unavailable REGINE CHOW Admitting Unavailable REGINE CHOW Attending Unavailable Thang Millan Primary Care Provider Unavailable Primary Care Provider UnavailTHANG Mauro Primary Care Physician Luis Carlos Jung Primary Care Physician [phone] Rashaun AMADOR Primary Care Physician NONE, XXXX Primary Care Physician [facility], GENERIC Primary Care Physician Unavailab le Unavailable Primary Care Provider [facility] Primary Care Provider Rashaun Amador Attending Provider ZORAN MYRICK Admitting Unavailable ZORAN MYRICK Attending Unavailable Luis Carlos Jung Admitting Unavailable Luis Carlos Jung Attending Unavailable Luis Carlos Jung Admitting Unavailable Luis Carlos Jung Attending Unavailable Gopi Rodriguez Attending Unavailable Merissa Vazksandakingston Barron Attending UnavailKristian Garvin Attending Unavailable Laura Noel Attending Unavailable Kristian Guillermo Attending Unavailable DO Julia Haywood Attending Unavaila Rashaun Bolton Admitting Unavailable Rashaun AMADOR Attending Unavailable Татьяна, Roverto VPatricia Admitting Unavailerum Vaz Roverto V. Attending UnavailZORAN Fuentes Admitting Unavailable ZORAN MYRICK Attending Unavailable Luis Carlos Jung Admitting Unavailable Luis Carlos Jung Attending Unavailable ZORAN MYIRCK Attending Unavailable ZORAN MYRICK Admitting Unavailable PERRY, RASHAUN Attending Unavailable PERRY, RASHAUN Attending Unavailable PERRY, RASHAUN Attending Unavailable PERRY, RASHAUN Attending Unavailable PERRY, RASHAUN Attending Unavailable Perry, Rashaun Attending [facility]available [facility] Un[facility] Perry, Rashaun Admitting Unavailable Perry, Rashaun Attending Unavailable Perry, Rashaun Admitting Unavailable Allergies Allergy Classification Reported Allergen(s) Allergy Type Date of Onset Reaction(s) Facility (20 sources) amoxicillin; Translations: [AMOXICILLIN] Drug Allergy 7 [facility], [facility] Repository (20 sources) penicillin; Translations: [PENICILLIN] Drug Allergy 7 [facility] Repository (16 sources) Penicillins; Translations: [PENICILLINS] Propensity to adverse reactions to drug 0 [place] (11 sources) Penicillin G procaine Allergy to substance 3 [facility] (2 sources) Penicillin; Translations: [penicillin G] Drug Allergy 1 [facility] Medications Current Medications Medication Drug Class(es) Dates [...] day(s), # 15 cap(s), Refills(s) 0, Pharmacy: [facility], 162.6, cm, 05/21/23 20:50:00 EDT, Height/Length Dosing, 75.3, kg, 05/21/23 20:50:00 EDT, Weight Dosing Start Date: 05/21/23 Stop Date: 05/26/23 Status: Ordered Start: 08-18-2022 End: 08-25-2022 take 1 capsule by mouth four times daily Keflex 500 mg Cap 500 mg = 1 cap(s), Oral, QID, X 7 day(s), # 28 cap(s), Refills(s) 0, Pharmacy: [facility], 162.5, cm, 08/18/22 4:15:00 EDT, Height/Length Dosing, 80, kg, 08/18/22 4:15:00 EDT, Weight Dosing Start Date: 08/18/22 Stop Date: 08/25/22 Status: Ordered Start: 07-17-2022 End: 07-22-2022 take 1 capsule by mouth every twelve hours Keflex 500 mg Cap 500 mg = 1 cap(s), Oral, q12hr, X 5 day(s), # 10 cap(s), Refills(s) 0, Pharmacy: [facility], 162.5, cm, 07/17/22 9:09:00 EDT, Height/Length Dosing, 80, kg, 07/17/22 9:09:00 EDT, Weight Dosing Start Date: 07/17/22 Stop Date: 07/22/22 Status: Ordered Start: 04-02-2022 End: 04-09-2022 take 1 capsule by mouth four times daily Keflex 500 mg Cap 500 mg = 1 cap(s), Oral, QID, X 7 day(s), # 28 cap(s), Refills(s) 0, Pharmacy: [facility], 160, cm, 04/02/22 6:28:00 EDT, Height/Length Dosing, 69.1, kg, 04/02/22 6:35:00 EDT, Weight Dosing Start Date: 04/02/22 Stop Date: 04/09/22 Status: Ordered cimetidine 300 mg oral tablet (3 sources) Histamine-2 Receptor Antagonist Start: 04-02-2022 cimetidine 300 mg oral tablet Refills(s) 0 Start Date: 04/02/22 Status: Ordered citalopram 20 mg oral tablet (11 sources) Serotonin Reuptake Inhibitor Start: 11-15-2023 End: 12-16-2024 take 1 tablet by mouth once daily citalopram (CeleXA) 20 MG tablet Indications: Anxiety, generalized (CMS/HCC) Take 1 tablet (20 mg) by mouth Daily 360 tablet 12/17/2023 12/16/2024 Active Colace (3 sources) Start: 08-18-2023 Colace Refills(s) 0 Start Date: 08/18/23 Status: Ordered docusate sodium 50 mg / sennosides, jail 8.6 mg oral tablet (6 sources) senna-docusate (Colace 2-IN-1) 8.6-50 MG tablet famotidine 20 mg oral tablet (6 sources) Histamine-2 Receptor Antagonist Start: 05-21-2023 take 1 tablet by mouth once daily Pepcid 20 mg Tab 20 mg = 1 tab(s), Oral, Daily, # 14 tab(s), Refills(s) 0, Pharmacy: [facility], 162.6, cm, 05/21/23 20:50:00 EDT, Height/Length Dosing, 75.3, kg, 05/21/23 20:50:00 EDT, Weight Dosing Start Date: 05/21/23 Status: Ordered ibuprofen 600 mg oral tablet (11 sources) Nonsteroidal Anti-inflammatory Drug Start: 09-27-2022 take 1 tablet by mouth every six hours ibuprofen 600 mg Tab 600 mg = 1 tab(s), Oral, q6hr, # 15 tab(s), Refills(s) 0, Pharmacy: [facility], 162.5, cm, 09/24/22 21:51:00 EST, [...] dizziness, # 15 tab(s), Refills(s) 0, Pharmacy: [id number], 163, cm, 11/30/21 7:18:00 EST, [...] mg megestrol acetate 20 mg oral tablet (2 sources) Progestin Start: 11-06-2024 End: 12-06-2024 take 1 [...] , # 12 tab(s), Refills(s) 0, Pharmacy: [facility], 163, cm, 09/05/22 20:14:00 EST, [...] day(s), # 6 tab(s), Refills(s) 0, Pharmacy: [facility], 163, cm, 06/28/23 10:39:00 EDT, Height/Length Dosing, 74.8, kg, 06/28/23 10:39:00 EDT, Weight Dosing Start Date: 06/28/23 Stop Date: 06/30/23 Status: Ordered Multivitamins (20 sources) Start: 03-03-2022 take 1 tablet by mouth once daily Multivitamins 1 tab(s), Oral, Daily, Refill(s) 0 Start Date: 03/03/22 Status: Ordered MV-Min-Fe Fum-FA-DHA ( 1 PO) (11 sources) MV-Min- Fe Fum-FA-DHA ( 1 PO) [...] q8hr, # 12 tab(s), Refills(s) 0, Pharmacy: [facility], 162.6, cm, 05/21/23 20:50:00 EDT, [...] Discontinued 10 MG PO Three times daily 14 April 10, 2020 12:00am October 18, 2020 [...] sources) Onset: 03-23-2022 Resolved: 09-25-2022 03-23-2022 Unclassified (11 sources) OB Reminders Onset: 07-17-2023 07-17-2023 Urinary [...] Test Name Value Interpretation Reference Range Facility XR CHEST 2Von 11-12-2024 [place] [address] XRay Report Signed Patient: SUSAN BRO MR#: [id number] : 1995 Acct:[id number] Age/Sex: 29 / F ADM Date: 11/12/24 Loc: [facility] Attending Dr: Rashaun Amador D.O. Ordering Physician: Rashaun Amador D.O. Date of Service: 11/12/24 Procedure(s): XR chest 2V Accession Number(s): [id number] cc: Rashaun Amador D.O.; Physician,Non-Staff M.DPatricia The [place] [id number] Patient Name: SUSAN BRO MRN: [facility]:[id number] date: 1995 Sex: F Assigned Patient Location: [facility] Current Patient Location: [facility] Accession/Order Number: [id number] Exam Date: 11/12/2024 11:20 Report Date: 11/12/2024 21:13 At the request of: RASHAUN AMADOR Procedure: XR chest 2V EXAM: XR chest 2V HISTORY: Preop exam COMPARISON: 01/28/2024. TECHNIQUE: Two views. FINDINGS: The heart and mediastinum are unremarkable. Lungs are clear. No focal infiltrates are seen. No effusions are noted. XR/XR chest 2V IMPRESSION: No acute cardiopulmonary pathology. Electronically authenticated by: Leilani VALLE Date: 11/12/2024 21:13 Dictated By: Leilani Valle M.D. Signed By: 11/12/242114 DD/ 12 TD/TT: Yardage Control Operator: [facility] Radiology, Radiologi MD kyra - 11/13/2024 [place] [address] XRay Report Signed Patient: SUSAN BRO MR#: [id number] : 1995 Acct:[id number] Age/Sex: 29 / F ADM Date: 11/12/24 Loc: [facility] Attending Dr: Rashaun Amador D.O. Ordering Physician: Rashaun Amador D.O. Date of Service: 11/12/24 Procedure(s): XR chest 2V Accession Number(s): [id number] cc: Rashaun Amador D.O.; Physician,Non-Staff Daniel [facility] [place] [address] Patient Name: SUSAN BRO MRN: [facility]:[id number] date: 1995 Sex: F Assigned Patient Location: [facility] Current Patient Location: [facility] Accession/Order Number: [id number] Exam Date: 11/12/2024 11:20 Report Date: 11/12/2024 21:13 At the request of: RASHAUN AMADOR Procedure: XR chest 2V EXAM: XR chest 2V HISTORY: Preop exam COMPARISON: 01/28/2024. TECHNIQUE: Two views. FINDINGS: The heart and mediastinum are unremarkable. Lungs are clear. No focal infiltrates are seen. No effusions are noted. XR/XR chest 2V IMPRESSION: No acute cardiopulmonary pathology. Electronically authenticated by: Leilani VALLE Date: 11/12/2024 21:13 Dictated By: Leilani Valle M.D. Signed By: 11/12/242114 DD/ 12 TD/TT: Yardage Control Operator: [facility] Radiology Study observation (narrative) [facility] [employer] XR CHEST 2VOrdered By: Radio logist Radiology on 11-12-2024 [facility]: Elvis 11-06-2024 L ----- Specimen: [id number] Received: 11/08/24 Status: DARBY Saavedrarand Num: [id number] Spec Type: Surgical Subm Dr: Rashaun Amador Tissues: A Endometrium - Biopsy (ENDOMETRIAL BX) Procedures: YAW/Cortney Mosher/Junior Interiano Age/ Patient Sex Location Account Attending Physician Susan Bro / LABELL [id number] Rashaun Amador SPEC NUM: [id number] RECD: 11/08/24 STATUS: DARBY ERNST NUM: [id number] MARIA ANTONIA: 11/06/24- SUBM DR: Rashaun Amador ENTERED: 11/08/24 [facility] DR: SPEC TYPE: Surgical DEPT: S ENTERED BY: [id number] RECV BY: [id number] ORDERED: HE/2, Gross/Micro L4 ORDERED: HE/2, Gross/Micro L4 Pathological Diagnosis Endometrial biopsy: Slightly unevenly developed secretory endometrium of the mid to mostly early late-phase types -No evidence of hyperplasia or atypia identified Clinical Information Menorrhagia Gross Description Part A is received in formalin labeled with the patients name and date of are shannon- pink, focally erythematous, delicate tissue fragments, 2.2 x 1.5 x 0.3 cm in aggregate. The specimen is filtered and entirely submitted in a single cassette. (1, ns, [id number] A) Microscopic Description Microscopic examinations are performed supporting the above interpretation Specimen: [id number] Received: 11/08/24 Status: DARBY Saavedrarand Num: [id number] Spec Type: Surgical Subm Dr: Rashaun Amador Tissues: A Endometrium - Biopsy (ENDOMETRIAL BX) Procedures: HE/2, Gross/Micro L4 Patient: Susan Bro [id number] (Continued) Specimen: [id number] Received: 11/08/24 (Continued) Signed (signature on file) Alejandra Gonzalez MD 11/11/24 1313 Specimen: [id number] Received: 11/08/24 Status: DARBY Ernst Num: [id number] Spec Type: Surgical Subm Dr: Rashaun Amador Tissues: A Endometrium - Biopsy (ENDOMETRIAL BX) Procedures: Cortney HARRIS/Junior Interiano Patient: Susan Bro [id number] (Continued) Specimen: [id number] Received: 11/08/24 (Continued) CPT Codes 40061 Specimen: [id number] Received: 11/08/24 Status: YENIJosh Carlos Num: [id number] Spec Type: Surgical Subm Dr: Rashaun Amador Tissues: A Endometrium - Biopsy (ENDOMETRIAL BX) Procedures: Cortney HARRIS/Junior L4 Patient: Susan Bro [id number] (Continued) Signed (signature on file) Alejandra Gonzalez MD 11/11/24 1313 Normal [facility] ALL CBC WITH AUTO DIFFon BASOPHILS ABSOLUTE AUTO 0.1 [facility] Basophils/100 WBC (Bld) 1.4 % 0.2 - 2.0 % [facility] Eosinophils/100 WBC (Bld) 2.1 % 0.9 - 7.0 % [facility] Erythrocyte distribution width (RBC) [Ratio] 12.9 % 11.0 - 15.0 % [facility] Hematocrit (Bld) [Volume fraction] 40 % 36.0 - 48.0 % [facility] Hemoglobin (Bld) [Mass/Vol] 13.6 g/dL 12.0 - 16.0 g/dL [facility] IMMATURE GRANULOCYTES ABS AUTO 0.02 [facility] Immature granulocytes/100 WBC (Bld) 0.3 % 0.0 - 0.5 % [facility] Interpretation and review of laboratory results Abnormal [facility] LYMPHOCYTES ABSOLUTE AUTO 1.5 [facility] Lymphocytes/100 WBC (Bld) 23.1 % 20.5 - 60.0 % [facility] MCH (RBC) [Entitic mass] 30.4 pg 26.7 - 34.0 pg [facility] MCHC (RBC) [Mass/Vol] 34 g/dL 29.9 - 35.2 g/dL [facility] MCV (RBC) [Entitic vol] 89.5 fL 81.0 - 99.0 fL [facility] MONOCYTES ABSOLUTE AUTO 0.4 [facility] Monocytes/100 WBC (Bld) 6.7 % 1.7 - 12.0 % [facility] NEUTROPHILS ABSOLUTE AUTO 4.4 [facility] Neutrophils/100 WBC (Bld) 66.4 % 43.0 - 75.0 % [facility] Platelet mean volume (Bld) [Entitic vol] 9.3 fL Low 9.5 - 13.5 fL [facility] EO # 0.1 [facility] PLT 291 [facility] RBC 4.47 [facility] WBC 6.6 [facility] Physician Orderon 03-12-2024 Physician Order [id number]#1.00TIFF [facility] T4 & TSHon 03-12-2024 TSH Qn 4.44 m[IU]/L Normal 0.34-5.60 [facility] Comment on above: Performed By: #### 1 [id number] #### [facility] Laboratory [address] [place] [address] T4 [Mass/Vol] 5.7 microgram/dL Normal 4.6-9.1 [facility] Comment on above: Performed By: #### 1 [id number] #### [facility] [address] [place] [address] Elvis 02-08-2024 L Specimen: [id number] Received: 02/11/24 Status: DARBY Ernst Num: [id number] Spec Type: Surgical Subm Dr: Rashaun Amador Tissues: A Fallopian Tube - Sterilization (FT BILATERAL) Procedures: HE/2, Gross/Micro L2 Age/ Patient Sex Location Account Attending Physician Susan Bro 28/ LABELL [id number] Rashaun Amador SPEC NUM: [id number] RECD: 02/11/24 STATUS: DARBY ERNST NUM: [id number] MARIA ANTONIA: 02/08/[address]: Rashaun Amador ENTERED: 02/11/24 [facility] DR: [place],Lab SPEC TYPE: Surgical DEPT: CLAUDINE [...] intact lumen lined by unremarkable shannon mucosa. Natural Sciences Manager sections are submitted in A1 (tube #1) and A2 (tube #2). Clinical history: Request for sterilization TW CPT Codes 83271 Specimen: [id number] Received: 02/11/24 Status: DARBY Carlos Num: [id number] Spec Type: Surgical Subm Dr: Rashaun Amador Tissues: A Fallopian Tube - Sterilization (FT BILATERAL) Procedures: YAW/Cortney Mosher/Junior L2 Patient: Susan Bro [id number] (Continued) Signed (signature on file) Cj-Dalton Gonzalez MD 02/12/241923 Normal [facility] ALL THYROID STIM HORMONEon 0 11-27-2023 TSH Qn 2.029 m[IU]/L [facility] Urinalysis macro (dipstick) panel (U)on 11-27-2023 Bilirubin, UA Negative Negative - 4(70) +++ mg/dL [facility] Blood, UA Negative Negative - 50 Tod/mcL [facility] Healthcare Clarity, UA Clear [facility] Color, UA Yellow [facility] Glucose, UA Negative Negative - 1999(110) ++++ mg/dL [facility] Interpretation and review of laboratory results Abnormal [facility] Ketones, UA Positive Negative - 160(16) ++++ mg/dL [facility] Leukocytes, UA Positive Negative - 500+++ Rosemarie/mcL [facility] Nitrite, UA Negative Negative - Positive [facility] pH, UA 6.5 5 - 9 [facility] Protein, UA Trace Negative - 1999(20) ++++ mg/dL [facility] Spec Grav, UA 1.025 1 - 1.03 [facility] Urobilinogen, UA 1.0 0.2 - 12 mg/dL [facility] Urinalysis macro (dipstick) panel (U)on 11-20-2023 Bilirubin, UA Negative Negative - 4(70) +++ mg/dL [facility] Blood, UA Negative Negative - 50 Tod/mcL [facility] Healthcare Clarity, UA Clear [facility] Color, UA Yellow [facility] Glucose, UA Negative Negative - 1999(110) ++++ mg/dL [facility] Interpretation and review of laboratory results Normal [facility] Ketones, UA Negative Negative - 160(16) ++++ mg/dL [facility] Leukocytes, UA Negative Negative - 500+++ Rosemarie/mcL [facility] Nitrite, UA Negative Negative - Positive [facility] pH, UA 7.0 5 - 9 [facility] Healthcare Protein, UA Negative Negative - 1999(20) ++++ mg/dL [facility] Spec Grav, UA 1.025 1 - 1.03 [facility] Urobilinogen, UA 1.0 0.2 - 12 mg/dL [facility] C Urineon 11-06-2023 Bacteria identified Cx [...] Locations R1: This test was performed at: [facility], [address] [place] [address], [address] [place] [address], [facility] Comment on above: Performed By: #### 2 [id number], [id number], [id number], [id number], [id number], [id number] #### [facility] Laboratory [address] [place] [address] Nursing Assessmenton 024 Nursing Assessment [id number]#1.00TIFF [facility] Consent for Treatmenton 10-16 Consent for Treatment [id number]#1.00TIFF [facility] Discharge Instructionson Discharge Instructions [id number]#1.00TIFF [facility] Inpatient Clinical Summaryon 11-04-2023 Inpatient Clinical Summary [address] [address] Clinical Summary Person Information Name: SUSAN BRO [place] Age: 28 Years : 1995 Sex: Female PCP: MELINA MAHONEY Marital Status: Single Phone: [phone] Race: White Ethnicity: Non- or Language: [place]er Visit Id: Visit Reason: Speciality: Acuity: Obs Enc Type: OB Triage Med Service: Obstetrics Arrival: 11/04/2023 07:52:14 Discharge: 11/04/2023 09:55:00 Dispo Type: Home (Routine DC) Address: [address] [place] [id number] Provider Notes: Diagnosis: Problems Active (08/18/2023) Pre-employment [...] Physician: Follow up: With: Address: When: Rashaun AMADOR [facility], [address] [place] [address] , [place] [address] Business (1) In 2 days 11/06/2023 Comments: Call for any problems. Appointment has already been scheduled Call physician if symptoms worsen Please call if you need to reschedule Return for contractions closer, longer, harder Return for decreased movement Return if ruptured membranes or vaginal bleeding Patient Education Information: Normal [facility] Inpatient Patient Summaryon 11-04-2023 Inpatient Patient Summary [address] [address] Patient Discharge Instructions PERSON INFORMATION [...] None Follow up: With: Address: When: Rashaun AMADOR [facility], [address] [place] [address] [place] [address] [employer] (1) In 2 days 11/06/2023 Comments: Call [...] signed up for this yet, please contact [employer] at [phone] to get signed up today. KIRAN Award [...] QR code below. Thank you for choosing [facility] Normal [facility] Insurance Correspondence Off iceon 11-04-2023 Insurance Correspondence Office [id number]#1.00TIFF Normal [facility] UA With Cult Reflexon 2023 Bacteria LM Ql (Urine sed) TRACE Normal Trace [facility] Comment on above: Performed By: #### 2 [id number], [id number], 1438000, 0072719, 2290667, 8640104 #### [facility] Laboratory [address] [facility] [place] [address] Bilirubin Ql (U) Negative Normal Negative [facility] Comment on above: Performed By: #### 2 633762, 45490606, 1262668, 9908926, 2073926, 2240108 #### [facility] [address] [facility] [place] [address] Clarity (U) SL CLOUDY Invalid Interpretation Code [facility] Comment on above: Performed By: #### 2 162439, 19543860, 2527338, 9235063, 8632759, 5803202 #### [facility] [address] [facility] [place] [address] Color (U) YELLOW Normal Yellow [facility] Comment on above: Performed By: #### 2 495710, [id number], 4532406, 7904434, 8152761, 2466360 #### [facility] [address] [facility] [place] [address] Epithelial cells.squamous LM.HPF (Urine sed) [#/Area] 5-8 Normal 0-2 [facility] Comment on above: Performed By: #### 2 273331, 23533415, 4311383, 1481299, 9322538, 8461290 #### [facility] [address] [place] [address] Glucose Test strip (U) [Mass/Vol] Negative Normal Negative [facility] Comment on above: Performed By: #### 2 199733, 48592810, 5311567, 5382883, 8142697, 1863126 #### [facility] [address] [place] [address] Hemoglobin Ql (U) Negative Normal Negative [facility] Comment on above: Performed By: #### 2 795717, 78820253, 7097397, 9139803, 8337176, 2849836 #### [facility] [address] [place] [address] Ketones (U) [Mass/Vol] Negative Normal Negative [facility] Comment on above: Performed By: #### 2 451610, 52504135, 8572896, 4500722, 4466039, 3310211 #### [facility] [address] [place] [address] Bramwell.plasma/Bramwell .RBC (Bld) [Mass ratio] 0-3 Normal 0-3 [facility] Comment on above: Performed By: #### 2 234826, 09498704, 6764259, 1784157, 4231979, 9490826 #### [facility] [address] [place] [address] Mucus Ql (Urine sed) TRACE Normal [facility] Comment on above: Performed By: #### 2 419838, 83274464, 7481289, 4150346, 4111904, 3460905 #### [facility] [address] [place] [address] Nitrite Ql (U) Negative Normal Negative [facility] Comment on above: Performed By: #### 2 899609, 04598286, 3676644, 0286282, 9672097, 7236393 #### [facility] [address] [place] [address] pH (U) 7.0 [pH] Invalid Interpretation Code 5.0-9.0 [facility] Comment on above: Performed By: #### 2 723100, 54675224, 7166375, 7488513, 0745750, 9057742 #### [facility] [address] [place] [address] Protein (U) [Mass/Vol] Negative Normal Negative [facility] Comment on above: Performed By: #### 2 496094, 38251030, 8668901, 3386942, 8122404, 2147796 #### [facility] [address] [place] [address] Specific gravity (U) [Rel density] 1.015 Invalid Interpretation Code 1.005-1.030 [facility] Comment on above: Performed By: #### 2 276104, 99619209, 8630071, 9311327, 8590305, 6345873 #### [facility] [address] [place] [address] Type of Urine collection method Clean Catch Normal [facility] Comment on above: Performed By: #### 2 829385, 72816479, 2577368, 1873693, 9429147, [id number] #### [facility] [address] [place] [address] 74952 Urobilinogen Qn (U) 0.2 {Rola'U}/dL Normal 0.0-1.0 [facility] Comment on above: Performed By: #### 2 686222, 95012105, 2645313, 3226940, 4907948, 4971839 #### [facility] [address] [place] [address] 11824 WBC Auto Ql (U) 1+ Abnormal Negative [facility] Comment on above: Performed By: #### 2 401964, 87690993, 3622864, 7232450, 4500821, 4306562 #### [facility] [address] [place] [address] 51809 WBC LM.HPF (Urine sed) [#/Area] 6-15 Abnormal 0-5 [facility] Comment on above: Performed By: #### 2 911133, 88456101, 5378590, 4672924, 5309980, 7730000 #### [facility] [address] [place] [address] URINALYSISOrdered By: An Mccarty on 11-04-2023 Bacteria [...] AM) Normal Negative [facility] UA Auto SS Bramwell.plasma/Bramwell .RBC (Bld) [Mass ratio] 0-3 /HPF Normal [...] Desc Clean Catch (11/04/23 8:05 AM) Normal [facility] UA Auto SS Urobilinogen Qn (U) 0.1697396 {Rola'U}/dL Normal 0.0 - 1.0 EU/dL FT UA Auto SS WBC Auto Ql (U) 1+ *ABN* (11/04/23 8:05 AM) Invalid Interpretation Code Negative FT UA Auto SS WBC LM.HPF (Urine sed) [#/Area] 6-15 /HPF Invalid Interpretation Code 0-5/HPF [facility] UA Auto SS T3 Totalon 08-24-2023 T3 [Mass/Vol] 146 ng/dL Invalid Interpretation Code 71-180 [facility] Comment on above: Result Comment: Perf ormed at: [facility] [address] [id number] PhD Caroline East Performed By: #### 2 581174, 95062034, 3154590, 1210020, 5283727, 7079900 #### [facility] [address] [place] [address] 16840 Auto Diffon 08-23-2023 Basophils/100 WBC (Bld) 0.9 % Normal 0.0-2.0 [facility] Comment on above: Order Comment: Order Added by Discern Expert. Performed By: #### 2 141374, 36592747, 5142186, 4878314, 8055531, 7357242 #### [facility] [address] [place] [address] Basophils/Leukocytes Auto (Bld) [Pure # fraction] 0.1 E9/L Normal 0.0-0.2 [facility] Comment on above: Order Comment: Order Added by Discern Expert. Performed By: #### 2 439946, 85124836, 2475696, 1585138, 3302470, 5535461 #### [facility] [address] [place] [address] Eosinophils/100 WBC (Bld) 1.3 % Normal 0.0-8.0 [facility] Comment on above: Order Comment: Order Added by Discern Expert. Performed By: #### 2 825840, 06329009, 1587375, 7409354, 6571513, 5482263 #### [facility] [address] [place] [address] 09954 Eosinophils/Leukocytes Auto (Bld) [Pure # fraction] 0.1 E9/L Normal 0.0-0.5 [facility] Comment on above: Order Comment: Order Added by Discern Expert. Performed By: #### 2 794684, 69406294, 6016602, 2515460, 5059708, 7813042 #### [facility] [address] [place] [address] 71293 Lymphocytes/100 WBC (Bld) 17.7 % Normal 14.0-50.0 [facility] Comment on above: Order Comment: Order Added by Discern Expert. Performed By: #### 2 978454, 88411080, 3339135, 6194201, 9956556, 8914413 #### [facility] [address] [place] [address] 86452 Lymphocytes/Leukocytes Auto (Bld) [Pure # fraction] 1.4 E9/L Normal 1.0-4.0 [facility] Comment on above: Order Comment: Order Added by Discern Expert. Performed By: #### 2 715097, 37534417, 1921580, 3669758, 6570178, 2254083 #### [facility] [address] [place] [address] 91213 Monocytes/100 WBC (Bld) 5.1 % Normal 4.0-14.0 [facility] Comment on above: Order Comment: Order Added by Discern Expert. Performed By: #### 2 517230, 07757264, 2665705, 4661193, 9057167, 3826049 #### [facility] [address] [place] [address] Monocytes/Leukocytes Auto (Bld) [Pure # fraction] 0.4 E9/L Normal 0.2-1.0 [facility] Comment on above: Order Comment: Order Added by Discern Expert. Performed By: #### 2 841990, 93565167, 5360026, 7115190, 8482189, 8984374 #### [facility] [address] [place] [address] Neutrophils/100 WBC (Bld) 75.0 % Normal 36.0-75.0 [facility] Comment on above: Order Comment: Order Added by Discern Expert. Performed By: #### 2 986350, 03954016, 6350219, 4087455, 3370368, 7562385 #### [facility] [address] [place] [address] Neutrophils/Leukocytes Auto (Bld) [Pure # fraction] 5.8 E9/L Normal 2.0-7.5 [facility] Comment on above: Order Comment: Order Added by Discern Expert. Performed By: #### 2 578023, 56629647, 0940036, 3540079, 3940233, 3427045 #### [facility] [address] [place] [address] 39989 CBC w/ Auto Diffon 3 Erythrocyte distribution width (RBC) [Ratio] 14.5 % High 10.9-14.2 [facility] Comment on above: Performed By: #### 2 717890, 81950396, 8715817, 7876220, 8145998, 9636237 #### [facility] [address] [place] [address] 51952 Hematocrit (Bld) [Volume fraction] 36.4 % Normal 34.0-46.0 [facility] Comment on above: Performed By: #### 2 041586, 29012469, 5046717, 4336438, 2056730, 3884969 #### [facility] [address] [place] [address] Hemoglobin (Bld) [Mass/Vol] 12.1 g/dL Normal 12.0-16.0 [facility] Comment on above: Performed By: #### 2 717589, 07011148, 9698955, 9556439, 9579486, 1760644 #### [facility] [address] [place] [address] 51824 MCH (RBC) [Entitic mass] 30.2 pg Normal 27.0-34.0 [facility] Comment on above: Performed By: #### 2 185124, 01891666, 8002840, 4896368, 2849370, 3432000 #### [facility] [address] [place], [place] [address] MCHC (RBC) [Mass/Vol] 33.3 g/dL Normal 31.4-36.0 [facility] Comment on above: Performed By: #### 2 810010, 84738245, 8778453, 0648004, 5099597, 8183990 #### [facility] [address] [place] [address] MCV (RBC) [Entitic vol] 90.8 fL Normal 80.0-100.0 [facility] Comment on above: Performed By: #### 2 180136, 75251232, 3825181, 7747847, 4709441, 5501067 #### [facility] [address] [place] [address] Platelet mean volume (Bld) [Entitic vol] 9.7 fL Normal 6.4-10.8 [facility] Comment on above: Performed By: #### 2 335667, 41771401, 5226960, 3124087, 6901480, 4027406 #### [facility] [address] [place], [place] [address] Platelets (Bld) [#/Vol] 270.0 E9/L Normal 150.0-500.0 [facility] Comment on above: Performed By: #### 2 710667, 29891688, 2984222, 5961747, 1179608, 5811649 #### [facility] [address] [place] [address] 51029 RBC (Bld) [#/Vol] 4.0 E12/L Low 4.3-5.9 [facility] Comment on above: Performed By: #### 2 245273, 51986243, 7252208, 1590443, 2664226, 0547801 #### [facility] [address] [place] [address] 92729 WBC corrected for nucl RBC Auto (Bld) [#/Vol] 7.7 E9/L Normal 4.0-11.0 [facility] Comment on above: Performed By: #### 2 867875, 39623433, 2225289, 7423251, 4509300, 7458654 #### [facility] [address] [place] [address] CHEMISTRYOrdered By: SYSTEM SYSTEM on 08-23-2023 Albumin [...] Normal >=59mL/min/ 1.73 m2 [facility] Chem S Comment on above: [...] 08-23-2023 Albumin [Mass/Vol] 2.8 g/dL Low 3.3-5.0 [facility] Comment on above: Performed By: #### 2 848719, 15775631, 1931430, 5667420, 5391968, 9991683 #### [facility] [address] [place] [address] Albumin/Globulin (S) [Mass conc ratio] 0.7 Low 1.1-2.2 [facility] Comment on above: Performed By: #### 2 958415, 21200981, 6198887, 4410721, 4811028, 6888244 #### [facility] [address] [place] [address] ALP [Catalytic activity/Vol] 49 Int._Unit/L Normal 21-98 [facility] Comment on above: Performed By: #### 2 731837, 42108469, 1975499, 3029363, 7352038, 9622983 #### [facility] [address] [place] [address] 09877 ALT No additional P-5'-P [Catalytic activity/Vol] 15 Int._Unit/L Normal 6-46 [facility] Comment on above: Performed By: #### 2 069756, 03387332, 7075307, 9060239, 1782789, 6945415 #### [facility] [address] [place] [address] 41450 Anion gap [Moles/Vol] 12 mmol/L Normal 6-16 [facility] Comment on above: Performed By: #### 2 014516, 32387530, 9197546, 3533784, 7414398, 0959310 #### [facility] [address] [place] [address] 94618 AST [Catalytic activity/Vol] 17 Int._Unit/L Normal 5-43 [facility] Comment on above: Performed By: #### 2 637174, 86976767, 6367208, 3509721, 9677511, 2978439 #### [facility] [address] [place] [address] 61351 Bilirubin [Mass/Vol] 0.5 mg/dL Normal 0.0-1.1 [facility] Comment on above: Performed By: #### 2 016059, 65779991, 6543059, 6769967, 5683177, 7101197 #### [facility] [address] [place] [address] Calcium [Mass/Vol] 8.8 mg/dL Low 8.9-11.1 [facility] Comment on above: Performed By: #### 2 171668, 79664315, 4257274, 4999058, 8609836, 3218525 #### [facility] [address] [place] [address] Chloride [Moles/Vol] 108 mmol/L Normal 101-111 [facility] Comment on above: Performed By: #### 2 720444, 00885797, 0932876, 4231201, 6988372, 5565004 #### [facility] [address] [place] [address] CO2 [Moles/Vol] 22 mmol/L Normal 21-31 [facility] Comment on above: Performed By: #### 2 013933, 82098850, 1805894, 3324197, 7751245, 8665421 #### [facility] [address] [place] [address] Creatinine [Mass/Vol] 0.6 mg/dL Normal 0.5-1.3 [facility] Comment on above: Performed By: #### 2 042766, 55218306, 9051953, 9775089, 0983434, 7106986 #### [facility] [address] [place] [address] Globulin (S) [Mass/Vol] 3.8 g/dL Normal 1.4-4.0 [facility] Comment on above: Performed By: #### 2 941408, 58246476, 7576244, 5891633, 1283153, 0113752 #### [facility] [address] [place] [address] Glucose [Mass/Vol] 88 mg/dL Normal 55-199 [facility] Comment on above: Result Comment: If t his glucose result represents a fasting glucose, interpretation should refer to the following reference range: 55-99 mg/dL Performed By: #### 2 488658, 12866487, 4332441, 2589375, 6286436, 5848005 #### [facility] [address] [place] [address] Potassium [Moles/Vol] 3.5 mmol/L Normal 3.5-5.3 [facility] Comment on above: Performed By: #### 2 409872, 42960594, 3695827, 1499580, 0087774, 4515099 #### [facility] [address] [place] [address] Protein [Mass/Vol] 6.6 g/dL Normal 6.0-7.8 [facility] Comment on above: Performed By: #### 2 659753, 22683364, 3494318, 2250825, 3954661, 0050338 #### [facility] [address] [place] [address] Sodium [Moles/Vol] 138 mmol/L Normal 135-145 [facility] Comment on above: Performed By: #### 2 707586, 83878730, 4655316, 1450295, 1342179, 3458198 #### [facility] [address] [place] [address] Urea nitrogen [Mass/Vol] 7 mg/dL Normal 5-21 [facility] Comment on above: Performed By: #### 2 505247, 95970098, 7324195, 9580182, 2703184, 6176591 #### [facility] [address] [place] [address] Urea nitrogen/Creatinine [Mass ratio] 12 No Units Normal 10-20 [facility] Comment on above: Performed By: #### 2 035901, 57373514, 1817367, 0417663, 2671067, 6603771 #### [facility] [address] [place] [address] HEMATOLOGYOrdered By: SYSTEM SYSTEM on 08-23-2023 Basophils/100 WBC (Bld) 0.9 % Normal 0.0 - 2.0 % [facility] HemeAutoSS Basophils/Leukocytes Auto (Bld) [Pure # fraction] [...] 270.0 E9/L Normal 150.0 - 500.0 E9/L [facility] HemeAutoSS RBC (Bld) [#/Vol] 4.0 E12/L Low 4.3 - 5.9 E12/L [facility] HemeAutoSS WBC corrected for nucl RBC Auto (Bld) [#/Vol] 7.7 E9/L Normal 4.0 - 11.0 E9/L [facility] HemeAutoSS Lipid Panelon 08-23-2023 Cholesterol [Mass/Vol] 238 mg/dL High 120-200 [facility] Comment on above: Performed By: #### 2 842427, 64787070, 9633105, 8848382, 8020169, 1858265 #### [facility] [address] [place] [address] Cholesterol in HDL [Mass/Vol] 64 mg/dL Invalid Interpretation Code [facility] Comment on above: Result Comment: HDL > or equal to 60 mg/dL: Low cardiovascular risk HDL < 40 mg/dL : High cardiovascular risk Performed By: #### 2 935303, 41932959, 7335807, 7133762, 1237207, 2635494 #### [facility] [address] [place] [address] Cholesterol in LDL [Mass/Vol] 146 mg/dL High <=129 [facility] Comment on above: Performed By: #### 2 216246, 12221806, 2179828, 3787701, 8866003, 8273726 #### [facility] [address] [place] [address] Cholesterol in VLDL [Mass/Vol] 33 mg/dL Normal 7-40 [facility] Comment on above: Performed By: #### 2 334756, 42671104, 4602079, 7917893, 6296538, 0413291 #### [facility] [address] [place] [address] Triglyceride [Mass/Vol] 164 mg/dL High <=149 [facility] Comment on above: Performed By: #### 2 813237, 27065695, 1179783, 3719118, 7929907, 3174590 #### [facility] [address] [place] [address] Physician Orderon 08-23-2023 Physician Order [id number]#1.00TIFF Normal [facility] T4 & TSHon 08-23-2023 T4 [Mass/Vol] 11.8 microgram/dL High 4.6-9.1 [facility] Comment on above: Performed By: #### 2 586506, 83318424, 6301084, 0129840, 9039685, 6787089 #### [facility] [address] [place] [address] TSH Qn 3.61 m[IU]/L Normal 0.34-5.60 [facility] Comment on above: Performed By: #### 2 277854, 37406840, 8617746, 1133890, 7920040, 8956544 #### [facility] [address] [place] [address] eGFRon 08-23-2023 GFR/1.73 sq M.predicted among non-blacks MDRD (S/P/Bld) [Vol rate/Area] 125 mL/min/1.73 m2 Normal >=59 [facility] Comment on above: Order Comment: Order Added by Discern Expert. Result Comment: Maintenance Man lucy kidney disease could be indicated at eGFR's of less than 60 mL/min/1.73m2. Kidney failure is indicated at less than 15 mL/min/1.73m2. Performed By: #### 2 819920, 27810850, 7451512, 5880553, 1908673, 9695238 #### [facility] [address] [place] [address] Nursing Assessmenton 023 Nursing Assessment [id number]#1.00TIFF Normal [facility] Consent for Treatmenton Consent for Treatment [id number]#1.00TIFF [facility] Discharge Instructionson Discharge Instructions [id number]#1.00TIFF Normal [facility] Inpatient Clinical Summaryon 08-18-2023 Inpatient Clinical Summary [place] [id number] Clinical Summary Person Information Name: SUSAN BRO [facility] Age: 27 Years : 1995 Sex: Female PCP: NONE, XXXX Marital Status: Single Phone: [phone] Race: White Ethnicity: Non- or Language: [place]er Visit Id: Visit Reason: Speciality: Acuity: Enc Type: OB Triage Med Service: Obstetrics Arrival: 08/18/2023 07:19:19 Discharge: 08/18/2023 08:15:00 Dispo Type: Home ([facility]) Address: [address] [place] [address] [id number] Provider Notes: Diagnosis: Problems Active (08/18/2023) Pre-employment [...] Patient Education Information: Second Trimester of , [id number] Normal [facility] Inpatient Patient Summaryon 08-18-2023 Inpatient Patient Summary [place] [id number] Patient Discharge Instructions PERSON INFORMATION Name: SUSAN BRO Date of : 1995 Current Date: 08/18/2023 08:35:25 PHYSICIANS Admitting Physician: Primary Care Physician: MARCIN BUSTOS PCP Phone Number: Comment: Discharge Diagnosis: Condition [...] to find a nearby participating provider. Comment: Beth RHIANNA, SUSAN D, have received the attached patient education [...] these instructions at home: Medicines ? Take emhs-tbx-pbrttzy and prescription medicines only as told by [...] your leg (more content not included)... Normal [facility] Insurance Correspondenceon 1 10-18-2022 Insurance Correspondence [id number]#1.00TIFF Normal [facility] Vaccinationson 08-18-2023 Vaccinations [id number]#1.00TIFF Normal [facility] C Urineon 07-27-2023 Bacteria identified [...] Locations R1: This test was performed at: [facility], [address] [place] [address], [address] , [place], Normal [facility] Comment on above: Performed By: #### 2 575252, 27115852 #### [facility] [address] [place] [address] 59526 ABO/Rhon 07-25-2023 ABO/Rh Positive Invalid Interpretation Code [facility] Comment on above: Performed By: #### 2 431188 ####[facility] [address] [place] [address] Auto Diffon 07-25-2023 Basophils/100 WBC (Bld) 1.1 % Normal 0.0-2.0 [facility] Comment on above: Order Comment: Order Added by Discern Expert. Performed By: #### 2 220804, 70017777, 6229521, 8721498, 3180044, 1721098 #### [facility] [address] [place] [address] 20251 Basophils/Leukocytes Auto (Bld) [Pure # fraction] 0.1 E9/L Normal 0.0-0.2 [facility] Comment on above: Order Comment: Order Added by Discern Expert. Performed By: #### 2 788745, 58811563, 5173935, 2943685, 2749602, 7822416 #### [facility] [address] [place] [address] 48863 Eosinophils/100 WBC (Bld) 1.2 % Normal 0.0-8.0 [facility] Comment on above: Order Comment: Order Added by Discern Expert. Performed By: #### 2 328455, 44230684, 7915938, 1562308, 1260967, 7303421 #### [facility] [address] [place] [address] 01728 Eosinophils/Leukocytes Auto (Bld) [Pure # fraction] 0.1 E9/L Normal 0.0-0.5 [facility] Comment on above: Order Comment: Order Added by Gisselle Expert. Performed By: #### 2 023623, 96171698, 6676453, 7468587, 9428956, 1222785 #### [facility] [address] [place] [address] Lymphocytes/100 WBC (Bld) 23.7 % Normal 14.0-50.0 [facility] Comment on above: Order Comment: Order Added by Discern Expert. Performed By: #### 2 896285, 98451750, 6702138, 8515991, 3497602, 2499466 #### [facility] [address] [place] [address] 22849 Lymphocytes/Leukocytes Auto (Bld) [Pure # fraction] 1.4 E9/L Normal 1.0-4.0 [facility] Comment on above: Order Comment: Order Added by Gisselle Expert. Performed By: #### 2 548802, 59814453, 5887529, 4045311, 6733956, 9872094 #### [facility] [address] [place] [address] 937[address] Monocytes/100 WBC (Bld) 6.7 % Normal 4.0-14.0 [facility] Comment on above: Order Comment: Order Added by Gisselle Expert. Performed By: #### 2 563864, 38767862, 9972619, 6291224, 7874257, 6502214 #### [facility] [address] [place] [address] 99480 Monocytes/Leukocytes Auto (Bld) [Pure # fraction] 0.4 E9/L Normal 0.2-1.0 [facility] Comment on above: Order Comment: Order Added by Gisselle Expert. Performed By: #### 2 589636, 38195143, 1723116, 4522867, 2387112, 8278611 #### [facility] [address] [place] [address] 38[address] Neutrophils/100 WBC (Bld) 67.3 % Normal 36.0-75.0 [facility] Comment on above: Order Comment: Order Added by Discern Expert. Performed By: #### 2 335681, 32209972, 0091978, 2002113, 2666189, 2489669 #### [facility] [address] [place] [address] Neutrophils/Leukocytes Auto (Bld) [Pure # fraction] 4.0 E9/L Normal 2.0-7.5 [facility] Comment on above: Order Comment: Order Added by Discern Expert. Performed By: #### 2 165686, 17399163, 3717432, 3445469, 0242233, 0571149 #### [facility] [address] [place] [address] BLOOD BANKOrdered By: An Lassiter on 07-25-2023 ABO/Rh Interp Positive Invalid Interpretation Code [facility] BB Subsection BMPon 07-25-2023 Creatinine [Mass/Vol] 0.6 mg/dL Normal 0.5-1.3 [facility] Comment on above: Performed By: #### 2 264112, 43345652, 9749174, 1178857, 1699824, 3672648 #### [facility] [address] [place] [address] Urea nitrogen [Mass/Vol] 6 mg/dL Normal 5-21 [facility] Comment on above: Performed By: #### 2 752055, 94376513, 1320926, 3076734, 0898280, 1857743 #### [facility] [address] [place] [address] Urea nitrogen/Creatinine [Mass ratio] 10 No Units Normal 10-20 [facility] Comment on above: Performed By: #### 2 841711, 78679266, 1175110, 2714477, 5801161, 9919519 #### [facility] [address] [place] [address] Anion gap [Moles/Vol] 2 mmol/L Low 6-16 [facility] Comment on above: Performed By: #### 2 626284, 56132024, 8797812, 7203890, 4877762, 5769773 #### [facility] [address] [place] [address] Calcium [Mass/Vol] 8.6 mg/dL Low 8.9-11.1 [facility] Comment on above: Performed By: #### 2 471170, 51730993, 5823812, 5398795, 0057220, 2406203 #### [facility] [address] [place] [address] Chloride [Moles/Vol] 107 mmol/L Normal 101-111 [facility] Comment on above: Performed By: #### 2 856231, 80825937, 7912657, 6831644, 3495761, 4280872 #### [facility] [address] [place] [address] CO2 [Moles/Vol] 27 mmol/L Normal 21-31 [facility] Comment on above: Performed By: #### 2 543253, 28751579, 6187936, 8597733, 9224103, 7727747 #### [facility] [address] [place] [address] Glucose [Mass/Vol] 73 mg/dL Normal 55-199 [facility] Comment on above: Result Comment: If t his glucose result represents a fasting glucose, interpretation should refer to the following reference range: 55-99 mg/dL Performed By: #### 2 986862, 58066932, 2009874, 7697680, 9228290, 3040760 #### [facility] [address] [place] [address] Potassium [Moles/Vol] 3.9 mmol/L Normal 3.5-5.3 [facility] Comment on above: Performed By: #### 2 396508, 25374306, 3549782, 6018929, 9580800, 2081183 #### [facility] [address] [place] [address] Sodium [Moles/Vol] 132 mmol/L Low 135-145 [facility] Comment on above: Performed By: #### 2 162752, 49467158, 1687458, 7344108, 0285524, 6357106 #### [facility] [address] [place] [address] BhCG Quanton 07-25-2023 [place] [address] m[IU]/mL High 1-3 [facility] Comment on above: Result Comment: GEST ATIONAL AGE HCG RANGE (mIU/mL) NON- <1-3 0.2-1 WEEKS 5-50 1-2 WEEKS 50-500 2-3 WEEKS 100-5,000 3-4 WEEKS 500-10,000 4-5 WEEKS 1,000-50,000 5-6 WEEKS 10,000-100,000 6-8 WEEKS 15,000-200,000 8-12 WEEKS 10,000-100,000 Performed By: #### 2 694514 ####[facility] [address] [place] [address] CBC w/ Auto Diffon Erythrocyte distribution width (RBC) [Ratio] 14.0 % Normal 10.9-14.2 [facility] Comment on above: Performed By: #### 2 291256, 70921759, 3945160, 4746447, 2004374, 3648017 #### [facility] [address] [place] [address] Hematocrit (Bld) [Volume fraction] 37.1 % Normal 34.0-46.0 [facility] Comment on above: Performed By: #### 2 293471, 49721183, 6368011, 0486808, 7143899, 7981172 #### [facility] [address] [place] [address] Hemoglobin (Bld) [Mass/Vol] 12.5 g/dL Normal 12.0-16.0 [facility] Comment on above: Performed By: #### 2 118691, 51358078, 7116224, 0164978, 3945435, 5035314 #### [facility] [address] [place] [address] MCH (RBC) [Entitic mass] 29.9 pg Normal 27.0-34.0 [facility] Comment on above: Performed By: #### 2 162137, 95278254, 3879716, 6879518, 5989067, 4584386 #### [facility] [address] [place] [address] MCHC (RBC) [Mass/Vol] 33.8 g/dL Normal 31.4-36.0 [facility] Comment on above: Performed By: #### 2 897391, 69598012, 4621572, 2249422, 7547318, 1725296 #### [facility] [address] [place] [address] MCV (RBC) [Entitic vol] 88.4 fL Normal 80.0-100.0 [facility] Comment on above: Performed By: #### 2 599300, 20033992, 4455647, 6820491, 3593111, 0133973 #### [facility] [address] [place] [address] Platelet mean volume (Bld) [Entitic vol] 7.9 fL Normal 6.4-10.8 [facility] Comment on above: Performed By: #### 2 389832, 07314191, 8235014, 7428143, 0867630, 4904464 #### [facility] [address] [place] [address] Platelets (Bld) [#/Vol] 261.0 E9/L Normal 150.0-500.0 [facility] Comment on above: Performed By: #### 2 317997, 33905863, 0806473, 7467668, 3506389, 8333742 #### [facility] [address] [place] [address] RBC (Bld) [#/Vol] 4.2 E12/L Low 4.3-5.9 [facility] Comment on above: Performed By: #### 2 490029, 43764587, 0807298, 6323203, 5490395, 3892100 #### [facility] [address] [place] [address] WBC corrected for nucl RBC Auto (Bld) [#/Vol] 5.9 E9/L Normal 4.0-11.0 [facility] Comment on above: Performed By: #### 2 254916, 79963843, 7170709, 1066395, 7578965, 3689712 #### [facility] [address] [place] [address] CHEMISTRYOrdered By: SYSTEM SYSTEM on 07-25-2023 Albumin [...] Normal >=59mL/min/ 1.73 m2 [facility] Chem S Comment on above: [...] reference range: 55-99 mg/[place] [address] m[IU]/mL High 1 - 3 mIU/mL [facility] Comment on above: Interpretive Data: G ESTATIONAL AGE HCG RANGE (mIU/mL) NON- <1-3 0.2-1 WEEKS 5-50 1-2 WEEKS 50-500 2-3 WEEKS 100-5,000 3-4 WEEKS 500-10,000 4-5 WEEKS 1,000-50,000 5-6 WEEKS 10,000-100,000 6-8 WEEKS 15,000-200,000 8-12 WEEKS 10,000-100,000 Lipase [Catalytic activity/Vol] 28 U/L Normal 13 - 58 unit/L [facility] Remisol Potassium [Moles/Vol] 3.9 mmol/L Normal 3.5 [...] Consent for Treatmenton 07-15 Consent for Treatment [id number]#[id number] Normal [facility] Discharge Instructionson Discharge Instructions [id number]#[id number] Normal [facility] ED Clinical Summaryon 2022 ED Clinical Summary (Inserted Image. Maryann ble to display) [address] [address] ED Clinical Summary Person Information Name: SUSAN BRO [facility] Age: 27 Years : 1995 Sex: Female Language: [place] Islander PCP: Rashaun AMADOR DO Marital Status: Single Phone: [phone] Visit Id: Visit Reason: Abdominal pain - [...] 07/25/2023 10:02:43 07/25/2023 10:02:43 07/25/2023 10:02:43 ADDRESS: [address] [facility] [id number] PHYS DOC NOTES: MEDICAL INFORMATION: Prescriptions Given: [...] up: With: Address: When: Luis Carlos Jung [facility] [address], [facility] [address], [place] [address] Business (1) In 3 days 07/28/2023 DIAGNOSIS: Abdominal cramping; Vaginal spotting Normal [facility] ED Note-Physicianon 07-25-20 ED Note-Physician Basic Information [...] complications with her previous , has a 12-lhbyl-kfd at home. Review of Systems Full 10 [...] and Complexity of Problems Differential Diagnosis: [] [facility] Data External documents reviewed: [] My [...] This was discussed with patient. Follow-up with [employer] was discussed with patient. Return precautions to [...] Jung In 3 days 07/28/2023 EDT [address] [place] [address]- Business (1) Additional Instructions: Patient Education Abdominal Pain During Attestation Patient seen and evaluated by the physician bilingual medical assistant. Attending physician was present in the emergency department and supervised care. This visit was performed by both the physician and an APC. I performed all aspects of the MDM as documented. This report was transcribed using voice recognition software. Every effort was made to ensure accuracy, however, inadvertently computerized textile artist mistakes may be present. Appropriate healthcare PPE was used in evaluating this patient. The patient was placed in a mask. The healthcare provider was wearing mask, gloves, and utilizing proper hand hygiene. All equipment was properly cleansed Problem List/Past Medical History Ongoing Gallstone Pre-employment examination Smoker 16-APR-2014 (more content not included)... Normal [facility] Comment on above: Result Comment: [...] keep your urine pale yellow. ? Take sssj-uom-frjlnrr and prescription medicines only as told by [...] provider. Document Revised: 06/14/2021 Document Reviewed: 06/14/2021 Rewarding Return Patient Education ? 2022 Jipio. Normal [facility] ED Patient Summaryon 023 ED Patient Summary (Inserted Image. Maryann ble to display) [address] [address] Patient Discharge Instructions Person Information Name: SUSAN BRO Age: 27 Years Arrival Date: 07/25/2023 08:12:57 Discharge Diagnosis: Abdominal cramping; Vaginal spotting Primary Care Physician: Rashaun AMADOR DO Provider Information Primary Provider: Kristian Guillermo DO Advanced Resource Conservation Manager:Jorge Velarde PA-C The exam and treatment you received in the Emergency Department were for an urgent problem and are not intended as complete care. It is important that you follow up with a doctor, nurse practitioner, or physician?s bilingual medical assistant for ongoing care. If your symptoms [...] Instructions: With: Address: When: Luis Carlos Jung [address] [place] [address], [place] [address], [place] [address] Business (1) In 3 days 07/28/2023 In the event that this physician does not participate in your insurance network, please consult with your insurance company to find a nearby participating provider. Patient Education Materials: Abdominal Pain During A MESSAGE TO ALL PATIENTS REGARDING OPIOIDS PRESCRIPTION OPIOIDS: WHAT YOU NEED TO KNOW Prescription opioids can be used to help relieve kzchdkwp-rj-igxhvf pain and are often prescribed following a [...] be struggling with addiction, tell your health school childcare attendant and ask for guidance or call [facility]?S National [employer] (more content not included)... Normal [facility] HEMATOLOGYOrdered By: SYSTEM SYSTEM on 07-25-2023 Basophils/100 WBC (Bld) 1.1 % Normal 0.0 - 2.0 % [facility] HemeAutoSS Basophils/Leukocytes Auto (Bld) [Pure # fraction] [...] 4.2 E12/L Low 4.3 - 5.9 E12/L [facility] HemeAutoSS WBC corrected for nucl RBC Auto (Bld) [#/Vol] 5.9 E9/L Normal 4.0 - 11.0 E9/L [facility] HemeAutoSS Hep Func Panelon 07-25-2023 Bilirubin.indirect [Mass or moles/Vol] UTC Abnormal 0.1-0.9 [facility] Comment on above: Result Comment: Resu lt verified by Discern Rule. Performed result UTC (Unable to Calculate) was sent as an Alpha code due the inability to calculate a valid numeric value. Performed By: #### 2 375125, 18858274, 2538830, 9566007, 6034505, 7263553 #### [facility] [address] [place] [address] Albumin [Mass/Vol] 3.1 g/dL Low 3.3-5.0 [facility] Comment on above: Performed By: #### 2 315231, 82114522, 5809448, 5605316, 4620146, 8153030 #### [facility] [address] [place] [address] Albumin/Globulin (S) [Mass conc ratio] 0.9 Low 1.1-2.2 [facility] Comment on above: Performed By: #### 2 221649, 05222020, 6255399, 4613328, 5376522, 2630147 #### [facility] [address] [place] [address] ALP [Catalytic activity/Vol] 35 Int._Unit/L Normal 21-98 [facility] Comment on above: Performed By: #### 2 111129, 39632697, 7014120, 8306474, 6386433, 4789470 #### [facility] [address] [place] [address] ALT No additional P-5'-P [Catalytic activity/Vol] 10 Int._Unit/L Normal 6-46 [facility] Comment on above: Performed By: #### 2 364352, 52190737, 7535528, 9624908, 5224847, 5733697 #### [facility] [address] [place] [address] AST [Catalytic activity/Vol] 18 Int._Unit/L Normal 5-43 [facility] Comment on above: Performed By: #### 2 131703, 11119833, 2414848, 7129822, 2595247, 5635705 #### [facility] [address] [place] [address] Bilirubin [Mass/Vol] 0.4 mg/dL Normal 0.0-1.1 [facility] Comment on above: Performed By: #### 2 831215, 18952853, 1102924, 0713648, 7679110, 4711077 #### [facility] [address] [place] [address] Globulin (S) [Mass/Vol] 3.6 g/dL Normal 1.4-4.0 [facility] Comment on above: Performed By: #### 2 438672, 37116086, 9016488, 4340387, 5907113, 1734655 #### [facility] [address] [place] [address] Protein [Mass/Vol] 6.7 g/dL Normal 6.0-7.8 [facility] Comment on above: Performed By: #### 2 568930, 57414760, 6532362, 3231136, 7058723, 4989481 #### [facility] [address] [place] [address] Bilirubin.direct [Mass/Vol] mg/dL Normal 0.1-0.4 [facility] Comment on above: Performed By: #### 2 264091, 74959004, 3198685, 5768794, 2784768, 4799932 #### [facility] [address] [place] [address] Lipase Levelon 07-25-2023 Lipase [Catalytic activity/Vol] 28 U/L Normal 13-58 [facility] Comment on above: Performed By: #### 2 535953, 28626887, 5064057, 0610401, 4549651, 9379100 #### [facility] [address] [place] [address] UA With Cult Reflexon 2022 Bacteria LM Ql (Urine sed) TRACE Normal Trace [facility] Comment on above: Performed By: #### 2 237995, 00747551 #### [facility] [address] [place] [address] Bilirubin Ql (U) Negative Normal Negative [facility] Comment on above: Performed By: #### 2 981821, 69542197 #### [facility] [address] [place] [address] Clarity (U) SL CLOUDY Abnormal Clear [facility] Comment on above: Performed By: #### 2 692321, 46366486 #### [facility] [address] [place] [address] Color (U) YELLOW Normal Yellow [facility] Comment on above: Performed By: #### 2 668400, 71367937 #### [facility] [address] [place] [address] Epithelial cells.squamous LM.HPF (Urine sed) [#/Area] 0-2 Normal 0-2 [facility] Comment on above: Performed By: #### 2 740106, 03744265 #### [facility] [address] [place] [address] Glucose Test strip (U) [Mass/Vol] Negative Normal Negative [facility] Comment on above: Performed By: #### 2 079147, 23701235 #### [facility] [address] [place] [address] Hemoglobin Ql (U) Negative Normal Negative [facility] Comment on above: Performed By: #### 2 328995, 24119638 #### [facility] [address] [place] [address] Ketones (U) [Mass/Vol] Negative Normal Negative [facility] Comment on above: Performed By: #### 2 754612, 87177455 #### [facility] [address] [place] [address] Bramwell.plasma/Bramwell .RBC (Bld) [Mass ratio] 0-3 Normal 0-3 [facility] Comment on above: Performed By: #### 2 038893, 01521324 #### [facility] [address] [place] [address] Nitrite Ql (U) Negative Normal Negative [facility] Comment on above: Performed By: #### 2 187624, 68918252 #### [facility] [address] [place] [address] pH (U) 7.5 [pH] Invalid Interpretation Code 5.0-9.0 [facility] Comment on above: Performed By: #### 2 591703, 04253291 #### [facility] [address] [place] [address] Protein (U) [Mass/Vol] Negative Normal Negative [facility] Comment on above: Performed By: #### 2 277622, 92341944 #### [facility] [address] [place] [address] Specific gravity (U) [Rel density] 1.010 Invalid Interpretation Code 1.005-1.030 [facility] Comment on above: Performed By: #### 2 156270, 16907646 #### [facility] [address] [place] [address] Type of Urine collection method Clean Catch Normal [facility] Comment on above: Performed By: #### 2 167079, 09734199 #### [facility] [address] [place] [address] Urobilinogen Qn (U) 1.0 {Rola'U}/dL Normal 0.0-1.0 [facility] Comment on above: Performed By: #### 2 499467, 17096077 #### [facility] [address] [place] [address] WBC Auto Ql (U) 2+ Abnormal Negative [facility] Comment on above: Performed By: #### 2 053887, 69570679 #### [facility] [address] [place] [address] WBC LM.HPF (Urine sed) [#/Area] 0-5 Normal 0-5 [facility] Comment on above: Performed By: #### 2 360456, 72122949 #### [facility] [address] [place] [address] URINALYSISOrdered By: Emy Aiken on 07-25-2023 Bacteria [...] AM) Normal Negative [facility] UA Auto SS Bramwell.plasma/Bramwell .RBC (Bld) [Mass ratio] 0-3 /HPF Normal [...] (07/25/23 8:33 AM) Normal [facility] UA Auto SS Urobilinogen Qn (U) 1.9113922 {Rola'U}/dL Normal 0.0 - 1.0 EU/dL [facility] UA Auto SS WBC Auto Ql (U) 2+ *ABN* (07/25/23 8:33 AM) Invalid Interpretation Code Negative [facility] UA Auto SS WBC LM.HPF (Urine sed) [#/Area] 0-5 /HPF Normal 0-5/HPF [facility] UA Auto SS US Limitedon [...] (bpm) 147 Cervical Length (cm) 4.4 Normal [facility] eGFRon 07-25-2023 GFR/1.73 sq M.predicted among non-blacks MDRD (S/P/Bld) [Vol rate/Area] 125 mL/min/1.73 m2 Normal >=59 [facility] Comment on above: Order Comment: Order added by Discern Expert. Result Comment: Maintenance Man lucy kidney disease could be indicated at eGFR's of less than 60 mL/min/1.73m2. Kidney failure is indicated at less than 15 mL/min/1.73m2. Performed By: #### 2 961124, 99465074, 7226666, 9655620, 2370678, 6429216 #### [facility] [address] [place] [address] C Urineon 06-30-2023 Bacteria identified Cx Nom (U) Microbiology PROCEDURE: Urine Culture [R1] SOURCE: U CleanCatch BODY SITE: COLLECTED DATE/TIME: 06/28/2023 11:12 EDT RECEIVED DATE/TIME: 06/28/2023 16:50 EDT START DATE/TIME: 06/28/2023 16:50 EDT FREE TEXT SOURCE: SpasiInfluitive PA-C, Roevrto Spasic PA-C, Roverto V. V. FINAL REPORTS Final Report [] Verified Date/Time: 06/30/2023 10:43 EDT 1,000 cfu/ml Mixed skin contaminants Performing Locations R1: This test was performed at: [facility], [address] [place] [address], [facility] , [place], Normal [facility] Comment on above: Performed By: #### 2 682557 ####[facility] [address] [place] [address] Family Medicine Office/Clini c Noteon 06-28-2023 Family [...] with voice recognition artificial intelligence software, specifically [employer], [employer] and or [employer]. Substitutions may have occurred due to the [...] is 14 weeks . She is switching [employer]'s therefore was not able to get in [...] day(s), # 6 tab(s), Refills(s) 0, Pharmacy: [facility], 163, cm, 06/28/23 10:39:00 EDT, Height/Length Dosing, 74.8, kg, 06/28/23 10:39:00 EDT, Weight Dosing Urine Culture Urnls Dip Stick Non-Auto w/o Micrscpy POC 49896 2. (Z34.90: Encounter for supervision of normal , unspecified, unspecified trimester) Same as above. Follow-up With When Contact Information Fabiana MARION, Luis Carlos Byrd, OR[facility] [address] [facility], [address] [place] [address]- Additional Instructions: Patient Education Urinary Tract Infection, Adult, Srco-bh-Cnxf Urinary Tract Infection, Adult, Cxme-lj-Dont Problem List/Past Medical History Ongoing Gallstone Pre-employment [...] or in school, 07/31/2022 Employed, Work/School description: [employer]., 09/11/2022 Substance Abuse - Denies [...] Protein Urine Dipstick: Negative (06/28/23 10:44:00) Specific Barton Urine Dipstick: 1.025 (06/28/23 10:44:00) Urine Appearance Urine Dipstick: Slightly cloudy (06/28/23 10:44:00) Urine Color Urine Dipstick: Dark yellow (06/28/23 10:44:00) Urobilinogen Urine Dipstick: Normal 0.2-1 (more content not included)... Normal [facility] Comment on above: Result Comment: [...] these instructions at home: Medicines ? Take xheo-ond-jgufhuf and prescription medicines only as told by [...] provider. Document Revised: 05/13/2021 Document Reviewed: 05/13/2021 Rewarding Return Patient Education ? 2022 Jipio. Obstetrics and Gynecology Urinary Tract Infection, Adult [...] You h (more content not included)... Normal [facility] ABO/Rhon 06-14-2023 ABO/Rh Positive Invalid Interpretation Code [facility] Comment on above: Performed By: #### 2 759495 ####[facility] [address] [place] [address] Auto Diffon 06-14-2023 Basophils/100 WBC (Bld) 0.8 % Normal 0.0-2.0 [facility] Comment on above: Order Comment: Order Added by Discern Expert. Performed By: #### 2 874032, 59960175, 7312882, 9472353, 7673361, 2297705 #### [facility] [address] [place] [address] Basophils/Leukocytes Auto (Bld) [Pure # fraction] 0.0 E9/L Normal 0.0-0.2 [facility] Comment on above: Order Comment: Order Added by Discern Expert. Performed By: #### 2 615249, 53687541, 6844465, 1370156, 1951666, 2046114 #### [facility] [address] [place] [address] Eosinophils/100 WBC (Bld) 1.9 % Normal 0.0-8.0 [facility] Comment on above: Order Comment: Order Added by Discern Expert. Performed By: #### 2 735333, 52884860, 6970955, 0935735, 6756814, 8894350 #### [facility] [address] [place] [address] Eosinophils/Leukocytes Auto (Bld) [Pure # fraction] 0.1 E9/L Normal 0.0-0.5 [facility] Comment on above: Order Comment: Order Added by Discern Expert. Performed By: #### 2 956292, 22524663, 5943215, 9275907, 2395735, 3527157 #### [facility] [address] [place] [address] Lymphocytes/100 WBC (Bld) 24.5 % Normal 14.0-50.0 [facility] [facility] Comment on above: Order Comment: Order Added by Discern Expert. Performed By: #### 2 282175, [id number], 1960969, 7078805, 3441411, 7456118 #### [facility] [address] [place] [address] 32755 Lymphocytes/Leukocytes Auto (Bld) [Pure # fraction] 1.3 E9/L Normal 1.0-4.0 [facility] Comment on above: Order Comment: Order Added by Discern Expert. Performed By: #### 2 692839, 90792791, 1342237, 4496019, 1279998, 1566554 #### [facility] [address] [place] [address] 25089 Monocytes/100 WBC (Bld) 7.8 % Normal 4.0-14.0 [facility] Comment on above: Order Comment: Order Added by Discern Expert. Performed By: #### 2 812087, 99320598, 7569278, 0753385, 8335711, 4632433 #### [facility] [address] [place] [address] Monocytes/Leukocytes Auto (Bld) [Pure # fraction] 0.4 E9/L Normal 0.2-1.0 [facility] Comment on above: Order Comment: Order Added by Discern Expert. Performed By: #### 2 450325, 78674614, 8055615, 5570571, 5625639, 5567652 #### [facility] [address] [place] [address] Neutrophils/100 WBC (Bld) 65.0 % Normal 36.0-75.0 [facility] Comment on above: Order Comment: Order Added by Discern Expert. Performed By: #### 2 889770, 63550584, 8720840, 9808974, 3538139, 6478271 #### [facility] [address] [place] [address] Neutrophils/Leukocytes Auto (Bld) [Pure # fraction] 3.5 E9/L Normal 2.0-7.5 [facility] Comment on above: Order Comment: Order Added by Discern Expert. Performed By: #### 2 396078, 61839758, 8592783, 8222765, 8212387, 8105496 #### [facility] [address] [place] [address] BLOOD BANKOrdered By: Keila Kumar on 06-14-2023 ABO/Rh Interp Positive Invalid Interpretation Code [facility] BB Subsection BMPon 06-14-2023 Creatinine [Mass/Vol] 0.5 mg/dL Normal 0.5-1.3 [facility] Comment on above: Performed By: #### 2 302720, 19753059, 3000705, 2583523, 7145314, 9002641 #### [facility] [address] [place] [address] Urea nitrogen [Mass/Vol] 6 mg/dL Normal 5-21 [facility] Comment on above: Performed By: #### 2 610504, 72987191, 8108387, 5905999, 8851160, 4917720 #### [facility] [address] [place] [address] Urea nitrogen/Creatinine [Mass ratio] 12 No Units Normal 10-20 [facility] Comment on above: Performed By: #### 2 200165, 80139185, 8763613, 7850970, 6455850, 6415450 #### [facility] [address] [place] [address] Anion gap [Moles/Vol] 10 mmol/L Normal 6-16 [facility] Comment on above: Performed By: #### 2 589953, 62564217, 5350980, 4664726, 6409240, 8279914 #### [facility] [address] [place] [address] Calcium [Mass/Vol] 8.7 mg/dL Low 8.9-11.1 [facility] Comment on above: Performed By: #### 2 712818, 70789398, 7978089, 4073217, 2740587, 7228301 #### [facility] [address] [place] [address] Chloride [Moles/Vol] 107 mmol/L Normal 101-111 [facility] Comment on above: Performed By: #### 2 956162, 36646046, 6584514, 8804502, 4182075, 5145885 #### [facility] [address] [place] [address] CO2 [Moles/Vol] 21 mmol/L Normal 21-31 [facility] Comment on above: Performed By: #### 2 845396, 67405549, 5814525, 2390349, 7344553, 8474327 #### [facility] [address] [place] [address] Glucose [Mass/Vol] 77 mg/dL Normal 55-199 [facility] Comment on above: Result Comment: If t his glucose result represents a fasting glucose, interpretation should refer to the following reference range: 55-99 mg/dL Performed By: #### 2 559298, 88605766, 0343223, 8432043, 4686571, 3246928 #### [facility] [address] [place] [address] Potassium [Moles/Vol] 3.8 mmol/L Normal 3.5-5.3 [facility] Comment on above: Performed By: #### 2 607221, 99482211, 1931197, 2295012, 1005840, 6373964 #### [facility] [address] [place] [address] Sodium [Moles/Vol] 134 mmol/L Low 135-145 [facility] Comment on above: Performed By: #### 2 075944, 99738576, 1369767, 4255551, 2446125, 8716360 #### [facility] [address] [place] [address] BhCG Quanton 06-14-2023 HCG.beta subunit Qn 653642 m[IU]/mL High 1-3 [facility] Comment on above: Result Comment: GEST ATIONAL AGE HCG RANGE (mIU/mL) NON- <1-3 0.2-1 WEEKS 5-50 1-2 WEEKS 50-500 2-3 WEEKS 100-5,000 3-4 WEEKS 500-10,000 4-5 WEEKS 1,000-50,000 5-6 WEEKS 10,000-100,000 6-8 WEEKS 15,000-200,000 8-12 WEEKS 10,000-100,000 Performed By: #### 2 767022 ####[facility] [address] [place] [address] CBC w/ Auto Diffon 3 Erythrocyte distribution width (RBC) [Ratio] 12.6 % Normal 10.9-14.2 [facility] Comment on above: Performed By: #### 2 391370, 62175636, 9556628, 0911765, 8278015, 0483061 #### [facility] [address] [place] [address] Hematocrit (Bld) [Volume fraction] 39.9 % Normal 34.0-46.0 [facility] Comment on above: Performed By: #### 2 074140, 64061936, 9183440, 2155810, 4488182, 2267858 #### [facility] [address] [place], [place] [address] Hemoglobin (Bld) [Mass/Vol] 13.4 g/dL Normal 12.0-16.0 [facility] Comment on above: Performed By: #### 2 450684, 25568298, 9172153, 5385315, 5622279, 9447241 #### [facility] [address] [place] [address] 16627 MCH (RBC) [Entitic mass] 29.8 pg Normal 27.0-34.0 [facility] Comment on above: Performed By: #### 2 849387, 22171668, 1057804, 2793864, 5315709, 9713578 #### [facility] [address] [place] [address] 10816 MCHC (RBC) [Mass/Vol] 33.6 g/dL Normal 31.4-36.0 [facility] Comment on above: Performed By: #### 2 534098, 42080056, 0989991, 5572224, 4509753, 0543332 #### [facility] [address] [place] [address] 22143 MCV (RBC) [Entitic vol] 88.8 fL Normal 80.0-100.0 [facility] Comment on above: Performed By: #### 2 286671, 11557094, 5377716, 1494540, 5772667, 6217655 #### [facility] [address] [place] [address] Platelet mean volume (Bld) [Entitic vol] 8.4 fL Normal 6.4-10.8 [facility] Comment on above: Performed By: #### 2 477124, 80381711, 8258393, 4427262, 2998735, 9182139 #### [facility] [address] [place] [address] Platelets (Bld) [#/Vol] 225.0 E9/L Normal 150.0-500.0 [facility] Comment on above: Performed By: #### 2 999867, 30519072, 0519568, 3471243, 9426056, 1963041 #### [facility] [address] [place] [address] RBC (Bld) [#/Vol] 4.5 E12/L Normal 4.3-5.9 [facility] Comment on above: Performed By: #### 2 504769, 96531540, 8865986, 4620475, 6945406, 4965448 #### [facility] [address] [place] [address] WBC corrected for nucl RBC Auto (Bld) [#/Vol] 5.4 E9/L Normal 4.0-11.0 [facility] Comment on above: Performed By: #### 2 841848, 71359169, 1015509, 4756036, 1354757, 2131062 #### [facility] [address] [place] [address] CHEMISTRYOrdered By: SYSTEM SYSTEM on 06-14-2023 Albumin [...] 130 mL/min/1.73 m2 Normal >=59mL/min/ 1.73 m2 [facility] Chem S Globulin (S) [Mass/Vol] 3.3 g/dL Normal 1.4 - 4.0 gm/dL FT Remisol Glucose [Mass/Vol] 77 mg/dL Normal 55 - 199 mg/dL FT Remisol HCG.beta subunit Qn 198325 m[IU]/mL High 1 - 3 mIU/mL FT [...] 10 - 20 FT Remisol Consent for Treatment05-17 Consent for Treatment [id number]:12 7 Normal [facility] ED Clinical Summaryon 2022 ED Clinical Summary (Inserted Image. Maryann ble to display) [address] [address] ED Clinical Summary Person Information Name: SUSAN BRO [place] Age: 27 Years : 1995 Sex: Female Language: [place] Islander PCP: Luis Carlos Jung MD Marital Status: Single Phone: [phone] Visit Id: Visit Reason: Abdominal pain; 12 [...] 06/14/2023 10:35:40 06/14/2023 10:35:40 06/14/2023 10:35:40 ADDRESS: [address] [place] [id number] PHYS DOC NOTES: MEDICAL INFORMATION: Prescriptions Given: [...] EDUCATION INFORMATION: Instructions: Follow up: DIAGNOSIS: Normal [facility] ED Note-Physicianon 06-14-20 ED Note-Physician Basic Information [...] sent for ultrasound which is discussed with communications technician. There is an intrauterine measuring 12 [...] Patient seen and evaluated by the physician bilingual medical assistant. Attending physician was present in the emergency department and supervised care. This visit was performed by both the physician and an APC. I performed all aspects of the MDM as documented. This report was transcribed using voice recognition software. Every effort was made to ensure accuracy, however, inadvertently computerized textile artist mistakes may be present. 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 Normal [facility] Comment on above: Result Comment: Elec tronically Signed By: Jos Ugalde PA-C\.br\Date and Time Signed: 06/14/23 11:58 EDT\.br\Electronically Co-Signed By: Kristian Guillermo DO\.br\Date and Time Co-Signed: 06/14/23 17:02 EDT ED Patient Education Noteon 06-14-2023 ED Patient Education Note Normal [facility] ED Patient Summaryon 023 ED Patient Summary (Inserted Image. Maryann ble to display) [place] [id number] Patient Discharge Instructions Person Information Name: SUSAN BRO Age: 27 Years Arrival Date: 06/14/2023 08:31:43 Discharge Diagnosis: Primary Care Physician: Luis Carlos Jung MD Provider Information Primary Provider: Kristian Guillermo DO Advanced Resource Conservation Manager:Jos Ugalde PA-C The exam and treatment you received in the Emergency Department were for an urgent problem and are not intended as complete care. It is important that you follow up with a doctor, nurse practitioner, or physician?s bilingual medical assistant for ongoing care. If your symptoms [...] opioids can be used to help relieve iaqcsqfb-tr-cfdyee pain and are often prescribed following a [...] be struggling with addiction, tell your health school childcare attendant and ask for guidance or call SAMHSA?S National Helpline at 9-738-878-WESN. v Source: [place] Department of Health and Human Services/Center for Disease Control & Prevention [facility] Medications Given: Medication Dose Route No medicati (more content not included)... Normal [facility] HEMATOLOGYOrdered By: SYSTEM SYSTEM on [...] 88.8 fL Normal 80.0 - 100.0 fL [facility] HemeAutoSS Platelet mean volume (Bld) [Entitic vol] 8.4 fL Normal 6.4 - 10.8 fL [facility] HemeAutoSS Platelets (Bld) [#/Vol] 225.0 E9/L Normal 150.0 - 500.0 E9/L [facility] HemeAutoSS RBC (Bld) [#/Vol] 4.5 E12/L Normal 4.3 - 5.9 E12/L [facility] HemeAutoSS WBC corrected for nucl RBC Auto (Bld) [#/Vol] 5.4 E9/L Normal 4.0 - 11.0 E9/L [facility] HemeAutoSS Hep Func Panelon 06-14-2023 Bilirubin.indirect [Mass or moles/Vol] UTC Abnormal 0.1-0.9 [facility] Comment on above: Result Comment: Resu lt verified by Discern Rule. Performed result UTC (Unable to Calculate) was sent as an Alpha code due the inability to calculate a valid numeric value. Performed By: #### 2 126717, 92851478, 9654822, 4411942, 2542515, 3336680 #### [facility] [address] [place] [address] Albumin [Mass/Vol] 3.5 g/dL Normal 3.3-5.0 [facility] Comment on above: Performed By: #### 2 744776, 80893356, 7082531, 9446893, 1456119, 9177313 #### [facility] [address] [place] [address] Albumin/Globulin (S) [Mass conc ratio] 1.1 Normal 1.1-2.2 [facility] Comment on above: Performed By: #### 2 171692, 69763336, 3071240, 5368111, 5223370, 3714906 #### [facility] [address] [place] [address] ALP [Catalytic activity/Vol] 34 Int._Unit/L Normal 21-98 [facility] Comment on above: Performed By: #### 2 229805, 26968167, 2848687, 0878720, 4859060, 4570936 #### [facility] [address] [place] [address] 48992 ALT No additional P-5'-P [Catalytic activity/Vol] 13 Int._Unit/L Normal 6-46 [facility] Comment on above: Performed By: #### 2 249931, 53772030, 5590831, 6206692, 9106120, 0099331 #### [facility] [address] [place] [address] AST [Catalytic activity/Vol] 17 Int._Unit/L Normal 5-43 [facility] Comment on above: Performed By: #### 2 340361, 13794067, 7826644, 7636692, 1433713, 5198156 #### [facility] [address] [place] [address] Bilirubin [Mass/Vol] 0.6 mg/dL Normal 0.0-1.1 [facility] Comment on above: Performed By: #### 2 830264, 97603913, 8966430, 1352038, 4013145, 5097400 #### [facility] [address] [place] [address] Globulin (S) [Mass/Vol] 3.3 g/dL Normal 1.4-4.0 [facility] Comment on above: Performed By: #### 2 278225, 61097665, 0423613, 8214379, 6731198, 7344704 #### [facility] [address] [place] [address] 76[address] Protein [Mass/Vol] 6.8 g/dL Normal 6.0-7.8 [facility] Comment on above: Performed By: #### 2 950756, 07846335, 1389620, 0193425, 7546490, 5822203 #### [facility] [address] [place] [address] Bilirubin.direct [Mass/Vol] mg/dL Normal 0.1-0.4 [facility] Comment on above: Performed By: #### 2 668954, 74162098, 5042616, 9003443, 3187783, 6660861 #### [facility] [address] [place] [address] Lipase Levelon 06-14-2023 Lipase [Catalytic activity/Vol] 28 U/L Normal 13-58 [facility] Comment on above: Performed By: #### 2 697592, 91496042, 4679002, 7250176, 7426432, 5484159 #### [facility] [address] [place] [address] Progress Note-Nurseon 2022 Progress Note-Nurse MAHESH Hinds verbalize d she was unable to locate patient at this time Normal [facility] UA With Cult Reflexon 2022 Bacteria LM Ql (Urine sed) TRACE Normal Trace [facility] Comment on above: Performed By: #### 2 203329, 11057425, 5281538, 0224454, 8656610, 6756681 #### [facility] [address] [place] [address] Bilirubin Ql (U) Negative Normal Negative [facility] Comment on above: Performed By: #### 2 402236, 66917851, 6979883, 2516234, 5874781, 8640438 #### [facility] [address] [place] [address] Clarity (U) CLEAR Normal Clear [facility] Comment on above: Performed By: #### 2 729342, 90136414, 8136359, 3255972, 4601951, 0907218 #### [facility] [address] [place] [address] Color (U) YELLOW Normal Yellow [facility] Comment on above: Performed By: #### 2 093281, 09373694, 9750623, 0635404, 3808250, 1987664 #### [facility] [address] [place] [address] Epithelial cells.squamous LM.HPF (Urine sed) [#/Area] 3-4 Normal 0-2 [facility] Comment on above: Performed By: #### 2 127288, 06808762, 8479318, 1446767, 6604040, 8067019 #### [facility] [address] [place] [address] Glucose Test strip (U) [Mass/Vol] Negative Normal Negative [facility] Comment on above: Performed By: #### 2 544633, 84608017, 2797350, 5800138, 8935631, 4099477 #### [facility] [address] [place] [address] Hemoglobin Ql (U) Negative Normal Negative [facility] Comment on above: Performed By: #### 2 012002, 75503806, 5943958, 6547014, 9465488, 6508731 #### [facility] [address] [place] [address] Ketones (U) [Mass/Vol] Negative Normal Negative [facility] Comment on above: Performed By: #### 2 154487, 58433480, 4284858, 5707419, 0233232, 2773900 #### [facility] [address] [place] [address] Bramwell.plasma/Bramwell .RBC (Bld) [Mass ratio] 0-3 Normal 0-3 [facility] Comment on above: Performed By: #### 2 206368, 15063053, 4057878, 7074290, 6002156, 6275677 #### [facility] [address] [place] [address] Mucus Ql (Urine sed) TRACE Normal [facility] Comment on above: Performed By: #### 2 205792, 49773156, 4689238, 4187043, 5950234, 6117669 #### [facility] [address] [place] [address] Nitrite Ql (U) Negative Normal Negative [facility] Comment on above: Performed By: #### 2 232064, 45690776, 8611886, 5557827, 2336124, 8673091 #### [facility] [address] [place] [address] pH (U) 6.5 [pH] Invalid Interpretation Code 5.0-9.0 [facility] Comment on above: Performed By: #### 2 503491, 89819684, 1816011, 1478868, 3115905, 1210514 #### [facility] [address] [place] [address] 10566 Protein (U) [Mass/Vol] Negative Normal Negative [facility] Comment on above: Performed By: #### 2 814995, 95764690, 5088036, 4273080, 2615075, 0365697 #### [facility] [address] [place] [address] Specific gravity (U) [Rel density] 1.015 Invalid Interpretation Code 1.005-1.030 [facility] Comment on above: Performed By: #### 2 923303, 53072459, 1497836, 9659287, 0564069, 8068928 #### [facility] [address] [place] [address]89 Type of Urine collection method Clean Catch Normal [facility] Comment on above: Performed By: #### 2 683637, 04009724, 7142129, 4971704, 8273131, 0238845 #### [facility] [address] [place] [address] Urobilinogen Qn (U) 0.2 {Rola'U}/dL Normal 0.0-1.0 [facility] Comment on above: Performed By: #### 2 568774, 71406390, 3977044, 5058844, 7716894, 7517799 #### [facility] [address] [place] [address] WBC Auto Ql (U) TRACE Abnormal Negative [facility] Comment on above: Performed By: #### 2 553894, 79943039, 2555567, 0550266, 5442408, 7897519 #### [facility] [address] [place] [address] 156[address] WBC LM.HPF (Urine sed) [#/Area] 0-5 Normal 0-5 [facility] Comment on above: Performed By: #### 2 815434, 26747495, 7254389, 2293044, 7150303, 2541404 #### [facility] [address] [place] [address] URINALYSISOrdered By: An Mccarty on 06-14-2023 Bacteria [...] AM) Normal Negative [facility] UA Auto SS Bramwell.plasma/Bramwell .RBC (Bld) [Mass ratio] 0-3 /HPF Normal [...] Desc Clean Catch (06/14/23 10:13 AM) Normal [facility] UA Auto SS Urobilinogen Qn (U) 0.2247692 {Rola'U}/dL Normal 0.0 - 1.0 EU/dL FT UA Auto SS WBC Auto Ql (U) Trace *ABN* (06/14/23 10:13 AM) Invalid Interpretation Code Negative [facility] UA Auto SS WBC LM.HPF [...] LMP : 02/21/23?? Irregular History 2 Normal [facility] eGFRon 06-14-2023 GFR/1.73 sq M.predicted among non-blacks MDRD (S/P/Bld) [Vol rate/Area] 130 mL/min/1.73 m2 Normal >=59 [facility] Comment on above: Order Comment: Order added by Discern Expert. Result Comment: Maintenance Man lucy kidney disease could be indicated at eGFR's of less than 60 mL/min/1.73m2. Kidney failure is indicated at less than 15 mL/min/1.73m2. Performed By: #### 2 791479, 52038636, 3323162, 9201035, 0752865, 5237873 #### [facility] [address] [place] [address] CHEMISTRYOrdered By: SYSTEM SYSTEM on 06-12-2023 TSH Qn 3.80 m[IU]/L Normal 0.34 - 5.60 mcIU/mL [facility] Remisol Consent for Treatmenton 05-16 Consent for Treatment [id number]#[id number]:12 7 Normal [facility] Physician Orderon 06-12-2023 Physician Order [id number]#[id number]:12 7 Normal [facility] TSHon 06-12-2023 TSH Qn 3.80 m[IU]/L Normal 0.34-5.60 [facility] Comment on above: Performed By: #### 2 872750, 19775234, 4199743, 6665257, 3926713, 0860879 #### [facility] [address] [place] [address] BhCG Quanton 05-22-2023 HCG.beta subunit Qn 846147 m[IU]/mL High 1-3 [facility] Comment on above: Result Comment: GEST ATIONAL AGE HCG RANGE (mIU/mL) NON- <1-3 0.2-1 WEEKS 5-50 1-2 WEEKS 50-500 2-3 WEEKS 100-5,000 3-4 WEEKS 500-10,000 4-5 WEEKS 1,000-50,000 5-6 WEEKS 10,000-100,000 6-8 WEEKS 15,000-200,000 8-12 WEEKS 10,000-100,000 Performed By: #### 2 069130, 19321938, 7207210, 2902510, 2171798, 4167912 #### [facility] [address] [place] [address] Discharge Instructionson Discharge Instructions [id number]:1 27 Normal [facility] ED Clinical Summaryon 2022 ED Clinical Summary (Inserted Image. Maryann ble to display) [address] [address] ED Clinical Summary Person Information Name: SUSAN BRO [place] Age: 27 Years : 1995 Sex: Female Language: [place] Islander PCP: Luis Carlos Jung MD Marital Status: Single Phone: [phone] Visit Id: Visit Reason: Abdominal pain - [...] 23:23:44 05/21/2023 23:23:44 05/21/2023 23:23:44 ADDRESS: [address] [facility] [id number] PHYS DOC NOTES: MEDICAL INFORMATION: Prescriptions Given: New Medications [facility], [address] [facility] [place] [id number], [phone] cephalexin (Keflex 500 mg Cap) 1 Capsules [...] EDUCATION INFORMATION: Instructions: Nonspecific Chest Pain, Adult, Svwj-vw-Ccpe; Nausea and Vomiting, Adult, Mkdy-um-Jdjv; Abdominal Pain During , Nbha-ja-Tchb Follow up: With: Address: When: Luis Carlos [address], [facility] [address], [place] [address] Business (1) In 3 days 05/24/2023 Comments: [...] (nausea and vomiting); Vaginal bleeding in Normal [facility] ED Note-Physicianon 05-22-20 ED Note-Physician Basic Information [...] and Complexity of Problems Differential Diagnosis: [] [facility] Data External documents reviewed: [] My [...] day(s), # 15 cap(s), Refills(s) 0, Pharmacy: [facility] 1985, 162.6, cm, 05/21/23 20:50:00 EDT, Height/Length Dosing, 75.3, kg, 05/21/23 20:50:00 EDT, Weight Dosing famotidine, 20 mg = 2 mL, Soln-IV, IV Push, Once, Stop date 05/21/23 21:00:00 EDT, STAT, Start date 05/21/23 21:00:00 EDT, 05/21/23 21:00:00 EDT famotidine, 20 mg = 1 tab(s), Oral, Daily, # 14 tab(s), Refills(s) 0, Pharmacy: [facility] 1985, 162.6, cm, 05/21/23 20:50:00 EDT, Height/Length Dosing, 75.3, kg, 05/21/23 20:50:00 EDT, Weight Dosing ondansetron, 4 mg = 2 mL, Injection, IV Push, Once, Stop date 05/21/23 21:00:00 EDT, STAT, Start date 05/21/23 21:00:00 EDT, 05/21/23 21:00:00 EDT ondansetron, 4 mg = 1 tab(s), Oral, q8hr, # 12 tab(s), Refills(s) 0, Pharmacy: [facility] 1985, 162.6, cm, 05/21/23 20:50:00 EDT, Height/Length Dosing, 75.3, kg, 05/21/23 20:50:00 EDT, Weight Dosing Sodium Chloride 0.9% intravenous solution, 1,000 (more content not included)... Normal [facility] Comment on above: Result Comment: [...] these instructions at home: Medicines ? Take nugu-tmy-lxmxqcc and prescription medicines only as told by [...] a heart-healthy diet. A diet and child care development specialist (dietitian) can help you to learn [...] provider. Document Revised: 12/15/2021 Document Reviewed: 12/15/2021 [employer] Patient Education ? 2022 [employer] Nausea and Vomiting, Adult Nausea is [...] Follow th (more content not included)... Normal [facility] ED Patient Summaryon 023 ED Patient Summary (Inserted Image. Maryann ble to display) [address] [address] Patient Discharge Instructions Person Information Name: SUSAN BRO Age: 27 Years Arrival Date: 05/21/2023 20:37:57 Discharge Diagnosis: Abdominal pain, acute; Chest pain; N&V (nausea and vomiting); Vaginal bleeding in Primary Care Physician: Luis Carlos Jung MD Provider Information Primary Provider: Gopi Rodriguez DO Advanced Resource Conservation Manager:None The exam and treatment you received in the Emergency Department were for an urgent problem and are not intended as complete care. It is important that you follow up with a doctor, nurse practitioner, or physician?s bilingual medical assistant for ongoing care. If your symptoms [...] Instructions: With: Address: When: Luis Carlos Jung [address] [place] [address], [address] [address] Business (1) In 3 days 05/24/2023 [...] Patient Education Materials: Nonspecific Chest Pain, Adult, Xutg-nr-Btsj; Nausea and Vomiting, Adult, Odui-dl-Oong; Abdominal Pain During , Ufti-jw-Xjge A MESSAGE TO ALL PATIENTS REGARDING OPIOIDS PRESCRIPTION OPIOIDS: WHAT YOU NEED TO KNOW Prescription opioids can be used to help relieve xiyjuxbv-nx-reysor pain and are often prescribed following a [...] unused prescription opioids: Find your community drug t (more content not included)... Normal [facility] UA With Cult Reflexon 2022 Bacteria LM Ql (Urine sed) TRACE Normal Trace [facility] Comment on above: Performed By: #### 2 786952, 66658041, 6545944, 5499562, 8747328, 9989125 #### [facility] [address] [place] [address] Bilirubin Ql (U) Negative Normal Negative [facility] Comment on above: Performed By: #### 2 009328, 25375769, 4038503, 6852790, 3916061, 7405916 #### [facility] [address] [place] [address] Clarity (U) CLEAR Normal Clear [facility] Comment on above: Performed By: #### 2 259119, 47660226, 5335023, 0310143, 6591985, 5350460 #### [facility] [address] [place] [address] Color (U) DARK YELLO Abnormal Yellow [facility] Comment on above: Performed By: #### 2 462409, 13446371, 5000212, 8425245, 0773544, 3673478 #### [facility] [address] [place] [address] Epithelial cells.squamous LM.HPF (Urine sed) [#/Area] 0-2 Normal 0-2 [facility] Comment on above: Performed By: #### 2 759890, 55214210, 5160761, 6265989, 1203961, 5078066 #### [facility] [address] [place] [address] Glucose Test strip (U) [Mass/Vol] Negative Normal Negative [facility] Comment on above: Performed By: #### 2 978043, 54247654, 7956803, 2993088, 5899833, 4857869 #### [facility] [address] [place] [address] Hemoglobin Ql (U) TRACE Abnormal Negative [facility] Comment on above: Performed By: #### 2 008738, 24871807, 5449938, 1355281, 6874459, 6062833 #### [facility] [address] [place] [address] Ketones (U) [Mass/Vol] TRACE Abnormal Negative [facility] Comment on above: Performed By: #### 2 056036, 96621900, 8339670, 5837823, 0172685, 9948619 #### [facility] [address] [place] [address] Bramwell.plasma/Bramwell .RBC (Bld) [Mass ratio] 4-20 Normal 0-3 [facility] Comment on above: Performed By: #### 2 347443, 24035651, 2206543, 9228831, 0167510, 5423418 #### [facility] [address] [place] [address] Mucus Ql (Urine sed) 1+ Normal [facility] Comment on above: Performed By: #### 2 127661, 18721010, 1068777, 8876981, 6558191, 9406086 #### [facility] [address] [place] [address] Nitrite Ql (U) Negative Normal Negative [facility] Comment on above: Performed By: #### 2 838547, 18288705, 2118076, 0655033, 4562132, 5509364 #### [facility] [address] [place] [address] pH (U) 6.0 [pH] Invalid Interpretation Code 5.0-9.0 [facility] Comment on above: Performed By: #### 2 173243, 61780407, 2746233, 9620796, 3818830, 0020019 #### [facility] [address] [place] [address] Protein (U) [Mass/Vol] 2+ Abnormal Negative [facility] Comment on above: Performed By: #### 2 782294, 55014683, 7509430, 8595720, 3224753, 9967065 #### [facility] [address] [place] [address] Specific gravity (U) [Rel density] >=1.030 Invalid Interpretation Code 1.005-1.030 [facility] Comment on above: Performed By: #### 2 534570, 59304940, 2447331, 6615766, 1784417, 2131024 #### [facility] [address] [place] [address] Type of Urine collection method Clean Catch Normal [facility] Comment on above: Performed By: #### 2 835487, 29666365, 4312229, 0721728, 8527246, 7312787 #### [facility] [address] [place], [place] [address] Urobilinogen Qn (U) 0.2 {Rola'U}/dL Normal 0.0-1.0 [facility] Comment on above: Performed By: #### 2 124031, 79262665, 7242069, 0020072, 8197923, 0979951 #### [facility] [address] [place] [address] WBC Auto Ql (U) Negative Normal Negative [facility] Comment on above: Performed By: #### 2 186082, 51723104, 1064288, 7735615, 2071797, 2572853 #### [facility] [address] [place] [address] WBC LM.HPF (Urine sed) [#/Area] 0-5 Normal 0-5 [facility] Comment on above: Performed By: #### 2 172620, 32184552, 7801096, 1767431, 6949614, 5139604 #### [facility] [address] [place] [address] US 1st Trimesteron 05-22-2023 US 1st Trimester [...] corresponding gestational age +/- 1 week are: Tyler Rump Length: 2.2 cm Composite Ultrasound Age: [...] 1 Transabdominal Ultrasound Performed FHR (bpm) 167 Tyler Rump Length (in cm) 2.22 Normal [facility] Auto Diffon 05-21-2023 Basophils/100 WBC (Bld) 1.0 % Normal 0.0-2.0 [facility] Comment on above: Order Comment: Order Added by Discern Expert. Performed By: #### 2 393969, 72194882, 2510582, 4341872, 8625878, 5543902 #### [facility] [address] [place] [address] Basophils/Leukocytes Auto (Bld) [Pure # fraction] 0.1 E9/L Normal 0.0-0.2 [facility] Comment on above: Order Comment: Order Added by Discern Expert. Performed By: #### 2 329648, 74704655, 6267010, 9335500, 8047136, 7997854 #### [facility] [address] [place] [address] Eosinophils/100 WBC (Bld) 1.5 % Normal 0.0-8.0 [facility] Comment on above: Order Comment: Order Added by Discern Expert. Performed By: #### 2 465224, 30587627, 8726818, 0627911, 7651707, 8039549 #### [facility] [address] [place] [address] Eosinophils/Leukocytes Auto (Bld) [Pure # fraction] 0.1 E9/L Normal 0.0-0.5 [facility] Comment on above: Order Comment: Order Added by Discern Expert. Performed By: #### 2 245495, 37239351, 7659813, 6453012, 4323662, 7240717 #### [facility] [address] [place] [address] Lymphocytes/100 WBC (Bld) 36.6 % Normal 14.0-50.0 [facility] Comment on above: Order Comment: Order Added by Discern Expert. Performed By: #### 2 127291, 77351800, 5398544, 2476903, 2215151, 3014646 #### [facility] [address] [place] [address] Lymphocytes/Leukocytes Auto (Bld) [Pure # fraction] 2.5 E9/L Normal 1.0-4.0 [facility] Comment on above: Order Comment: Order Added by Discern Expert. Performed By: #### 2 574799, 24047154, 0841638, 2400215, 4293918, 4882029 #### [facility] [address] [place] [address] Monocytes/100 WBC (Bld) 8.2 % Normal 4.0-14.0 [facility] Comment on above: Order Comment: Order Added by Discern Expert. Performed By: #### 2 226195, 30627310, 6449565, 7518654, 0384444, 4712910 #### [facility] [address] [place] [address] Monocytes/Leukocytes Auto (Bld) [Pure # fraction] 0.6 E9/L Normal 0.2-1.0 [facility] Comment on above: Order Comment: Order Added by Discern Expert. Performed By: #### 2 122262, 47218177, 8796649, 6105207, 7973577, 5778243 #### [facility] [address] [place] [address] Neutrophils/100 WBC (Bld) 52.7 % Normal 36.0-75.0 [facility] Comment on above: Order Comment: Order Added by Discern Expert. Performed By: #### 2 288602, 38971203, 2607757, 0819224, 4660314, 1732256 #### [facility] [address] [place] [address] Neutrophils/Leukocytes Auto (Bld) [Pure # fraction] 3.6 E9/L Normal 2.0-7.5 [facility] Comment on above: Order Comment: Order Added by Discern Expert. Performed By: #### 2 266507, 05118040, 3919813, 6571814, 4352194, 5235552 #### [facility] [address] [place] [address] BMPon 05-21-2023 Creatinine [Mass/Vol] 0.7 mg/dL Normal 0.5-1.3 [facility] Comment on above: Performed By: #### 2 887112, 99292107, 6138123, 8796844, 2219069, 6632296 #### [facility] [address] [place] [address] Urea nitrogen [Mass/Vol] 8 mg/dL Normal 5-21 [facility] Comment on above: Performed By: #### 2 683655, 87654854, 3346329, 2417293, 3074367, 2412454 #### [facility] [address] [place] [address] Urea nitrogen/Creatinine [Mass ratio] 11 No Units Normal 10-20 [facility] Comment on above: Performed By: #### 2 503349, 29932368, 5729943, 7426431, 7022458, 5300124 #### [facility] [address] [place] [address] Anion gap [Moles/Vol] 12 mmol/L Normal 6-16 [facility] Comment on above: Performed By: #### 2 893429, 50668366, 4945914, 2423649, 6317820, 1387608 #### [facility] [address] [place] [address] Calcium [Mass/Vol] 9.2 mg/dL Normal 8.9-11.1 [facility] Comment on above: Performed By: #### 2 257716, 05993524, 5826422, 8627802, 6574090, 7135916 #### [facility] [address] [place] [address] Chloride [Moles/Vol] 104 mmol/L Normal 101-111 [facility] Comment on above: Performed By: #### 2 539916, 73357415, 2433610, 7365045, 9417924, 5784482 #### [facility] [address] [place] [address] CO2 [Moles/Vol] 24 mmol/L Normal 21-31 [facility] Comment on above: Performed By: #### 2 163772, 94406259, 0550160, 9374596, 9276758, 9990127 #### [facility] [address] [place] [address] Glucose [Mass/Vol] 87 mg/dL Normal 55-199 [facility] Comment on above: Result Comment: If t his glucose result represents a fasting glucose, interpretation should refer to the following reference range: 55-99 mg/dL Performed By: #### 2 513624, 45624065, 5577749, 1141064, 8406805, 8166194 #### [facility] [address] [place] [address] Potassium [Moles/Vol] 3.2 mmol/L Low 3.5-5.3 [facility] Comment on above: Performed By: #### 2 236766, 33802050, 9338107, 5742486, 7299555, 2719317 #### [facility] [address] [place] [address] Sodium [Moles/Vol] 137 mmol/L Normal 135-145 [facility] Comment on above: Performed By: #### 2 457913, 69623130, 2506224, 9289841, 1893049, 8948028 #### [facility] [address] [place] [address] CBC w/ Auto Diffon 3 Erythrocyte distribution width (RBC) [Ratio] 13.3 % Normal 10.9-14.2 [facility] Comment on above: Performed By: #### 2 199435, 63227954, 8697769, 0663648, 4827478, 0747489 #### [facility] [address] [place] [address] Hematocrit (Bld) [Volume fraction] 39.0 % Normal 34.0-46.0 [facility] Comment on above: Performed By: #### 2 962847, 69281949, 9120347, 4074957, 2221035, 9141272 #### [facility] [address] [place] [address] Hemoglobin (Bld) [Mass/Vol] 13.3 g/dL Normal 12.0-16.0 [facility] Comment on above: Performed By: #### 2 946421, 49407824, 6824313, 2544478, 4502365, 5030670 #### [facility] [address] [place] [address] MCH (RBC) [Entitic mass] 30.3 pg Normal 27.0-34.0 [facility] Comment on above: Performed By: #### 2 483326, 19403631, 3375720, 1017951, 2377779, 6742404 #### [facility] [address] [place] [address] MCHC (RBC) [Mass/Vol] 34.2 g/dL Normal 31.4-36.0 [facility] Comment on above: Performed By: #### 2 734276, 49905823, 2305962, 6962395, 7469132, 1760945 #### [facility] [address] [place], [place] [address] MCV (RBC) [Entitic vol] 88.7 fL Normal 80.0-100.0 [facility] Comment on above: Performed By: #### 2 295227, 75845725, 3502603, 3683836, 6332044, 0108875 #### [facility] [address] [place] [address] Platelet mean volume (Bld) [Entitic vol] 7.8 fL Normal 6.4-10.8 [facility] Comment on above: Performed By: #### 2 747611, 28908299, 8121940, 9556402, 0343942, 3052149 #### [facility] [address] [place], [place] [address] Platelets (Bld) [#/Vol] 225.0 E9/L Normal 150.0-500.0 [facility] Comment on above: Performed By: #### 2 148499, 51442380, 6067589, 0035757, 1193996, 9989435 #### [facility] [address] [place], [place] [address] RBC (Bld) [#/Vol] 4.4 E12/L Normal 4.3-5.9 [facility] Comment on above: Performed By: #### 2 135546, 90818181, 3295270, 4860871, 7619243, 3744486 #### [facility] [address] [place] [address] WBC corrected for nucl RBC Auto (Bld) [#/Vol] 6.8 E9/L Normal 4.0-11.0 [facility] Comment on above: Performed By: #### 2 118104, 00607523, 0515527, 0150201, 0712220, 6340712 #### [facility] [address] [place] [address] CHEMISTRYOrdered By: SYSTEM SYSTEM on 05-21-2023 HCG.beta subunit Qn 391529 m[IU]/mL High 1 - 3 mIU/mL [facility] [...] Remisol Consent for Treatmenton Consent for Treatment [id number]#1.00CD:12 7 Normal [facility] HEMATOLOGYOrdered By: SYSTEM SYSTEM on [...] Bilirubin.indirect [Mass or moles/Vol] UTC Abnormal 0.1-0.9 [facility] Comment on above: Result Comment: Resu lt verified by Discern Rule. Performed result [facility] (Unable to Calculate) was sent as an Alpha code due the inability to calculate a valid numeric value. Performed By: #### 2 850227, 80028580, 7106467, 5593496, 9386348, 8377176 #### [facility] [address] [place] [address] Albumin [Mass/Vol] 3.8 g/dL Normal 3.3-5.0 [facility] Comment on above: Performed By: #### 2 775400, 28563378, 3536830, 0290204, 2035211, 5728896 #### [facility] [address] [place] [address] Albumin/Globulin (S) [Mass conc ratio] 1.2 Normal 1.1-2.2 [facility] Comment on above: Performed By: #### 2 356944, 13310395, 4502452, 5290102, 5272077, 9797430 #### [facility] [address] [place] [address] ALP [Catalytic activity/Vol] 42 Int._Unit/L Normal 21-98 [facility] Comment on above: Performed By: #### 2 344484, 07835867, 0949362, 7668011, 8708760, 5534065 #### [facility] [address] [place] [address] ALT No additional P-5'-P [Catalytic activity/Vol] 13 Int._Unit/L Normal 6-46 [facility] Comment on above: Performed By: #### 2 240097, 01527137, 1535055, 7549582, 8800963, 4408559 #### [facility] [address] [place] [address] AST [Catalytic activity/Vol] 14 Int._Unit/L Normal 5-43 [facility] Comment on above: Performed By: #### 2 671249, 78109250, 9670609, 6563813, 3333691, 3426718 #### [facility] [address] [place] [address] Bilirubin [Mass/Vol] 0.5 mg/dL Normal 0.0-1.1 [facility] Comment on above: Performed By: #### 2 783610, 16017469, 2048864, 8167845, 1756151, 4722555 #### [facility] [address] [place] [address] Globulin (S) [Mass/Vol] 3.1 g/dL Normal 1.4-4.0 [facility] Comment on above: Performed By: #### 2 306767, 40191231, 1823220, 9564742, 9057556, 6416756 #### [facility] [address] [place] [address] Protein [Mass/Vol] 6.9 g/dL Normal 6.0-7.8 [facility] Comment on above: Performed By: #### 2 080893, 87780408, 3121758, 2596334, 9862015, 4456991 #### [facility] [address] [place] [address] Bilirubin.direct [Mass/Vol] mg/dL Normal 0.1-0.4 [facility] Comment on above: Performed By: #### 2 015938, 63180954, 3527875, 5092233, 1878060, 2201613 #### [facility] [address] [place] [address] Lipase Levelon 05-21-2023 Lipase [Catalytic activity/Vol] 31 U/L Normal 13-58 [facility] Comment on above: Performed By: #### 2 369366, 89086041, 7111905, 9964235, 8582059, 2300291 #### [facility] [address] [place] [address] Troponin 0 Hr.on 05-21-2023 Troponin I.cardiac [Mass/Vol] 2.50 pg/mL Low 10.10-27.10 [facility] Comment on above: Result Comment: The 95% CI (Confidence Interval) PPV (Positive Predictive Value) for myocardial infarction in females is 38 pg/mL, in males 51 pg/mL. The results should be used in conjunction with clinical conditions of myocardial infarction. (Access High Sensitivity Troponin I Instructions For Use, Ziggy Regina, May 2018) Performed By: #### 2 545877, 22179218, 7948457, 3612215, 1911172, 0318515 #### [facility] [address] [place] [address] URINALYSISOrdered By: Jose Miguel nelson on 05-21-2023 [...] Interpretation Code Negative [facility] UA Auto SS Bramwell.plasma/Bramwell .RBC (Bld) [Mass ratio] 4-20 /HPF Normal [...] (05/21/23 10:17 PM) Invalid Interpretation Code Negative [facility] UA Auto SS Specific gravity (U) [Rel density] >=1.030 *NA* (05/21/23 10:17 PM) Invalid Interpretation Code 1.005 - 1.030 [facility] UA Auto SS UA Spec Desc Clean Catch (05/21/23 10:17 PM) Normal [facility] UA Auto SS Urobilinogen Qn (U) 0.3639374 {Rola'U}/dL Normal 0.0 - 1.0 EU/dL [facility] UA Auto SS WBC Auto Ql (U) Negative (05/21/23 10:17 PM) Normal Negative [facility] UA Auto SS WBC LM.HPF (Urine sed) [#/Area] 0-5 /HPF Normal 0-5/HPF [facility] UA Auto SS eGFRon 05-21-2023 GFR/1.73 sq M.predicted among non-blacks MDRD (S/P/Bld) [Vol rate/Area] 120 mL/min/1.73 m2 Normal >=59 [facility] Comment on above: Order Comment: Order added by Discern Expert. Result Comment: Maintenance Man lucy kidney disease could be indicated at eGFR's of less than 60 mL/min/1.73m2. Kidney failure is indicated at less than 15 mL/min/1.73m2. Performed By: #### 2 376748, [id number], 7792691, 6432404, 6533952, 5744075 #### [facility] [address] [place] [address] PAP [id number] 05-03-2023 C. trachomatis rRNA MAHAD+probe Ql (Cvx) Negative Invalid Interpretation Code Negative [facility] Comment on above: Performed By: #### 2 208890, 43572428, 0200295, 6164874, 9843194, 2340701 #### [facility] [address] [place] [address] Cytology report Cyto stain Doc (Cvx/Vag) Note Invalid Interpretation Code [facility] Comment on above: Result Comment: TEST S RESULT FLAG UNITS REF RANGE LAB Clinician Provided Cytology Information Source.............Endocervix No. of containers..01 ThinPrep Vial DIAGNOSIS: 01 NEGATIVE FOR INTRAEPITHELIAL LESION OR MALIGNANCY. Specimen adequacy: 01 Satisfactory for evaluation. Endocervical and/or squamous metaplastic cells (endocervical component) are present. Performed by: 01 Analilia Shea, Tube Teller ([facility]) . 01 Note: Note 01 The [...] <-Panic Low,>-Panic High,A-Abnormal,AA-Critical Abnormal Performed at: [address] [address] Joya Walton MD, Performed By: #### 2 371173, 33200345, 8643357, 6707862, 4196410, 5358331 #### [facility] [address] [place] [address] N. gonorrhoeae rRNA MAHAD+probe Ql (Cvx) Negative Invalid Interpretation Code Negative [facility] Comment on above: Result Comment: [facility]f [facility]med at: [facility] [address] [facility] [place] [id number] MD Anton Hinson Performed at: =[facility] [address] [facility] [address] [place], [place] [id number] MD Anton Hinson Performed By: #### 2 803172, 01211999, 0278674, 1927431, 4743509, 2599765 #### [facility] [address] [place] [address] C Urineon 05-02-2023 Bacteria identified Cx Nom [...] Locations R1: This test was performed at: [facility], [address] [place] [address], [address] , , Normal [facility] Comment on above: Performed By: #### 2 459373, 04152407, 3718593, 8324620, 3282149, 1696110 #### [facility] [address] [place] [address] HIV Screen 4th Generation wR fxon 05-01-2023 HIV 1+2 Ab+HIV1 p24 Ag IA Ql Non-Reactive Invalid Interpretation Code Non Reactive [facility] Comment on above: Result Comment: HIV Negative HIV-1/HIV-2 antibodies and HIV-1 p24 antigen were NOT detected. There is no laboratory evidence of HIV infection. Performed at: [facility] [address] [place], [place] [id number] PhD Caroline East Performed By: #### 2 586672, 82431517, 7819670, 2864714, 5318060, 7713771 #### [facility] [address] [place] [address] Hep Bs Agon 05-01-2023 HBV surface Ag IA Ql Negative Invalid Interpretation Code Negative [facility] Comment on above: Result Comment: Perf ormed at: [address] [id number] PhD Caroline East Performed By: #### 2 779775, 49328193, 9030538, 3662422, 2339082, 8470682 #### [facility] [address] [place] [address] RPR with Conf Rfxon 05-01-20 23 Reagin Ab RPR Ql (S) Non-Reactive Invalid Interpretation Code Non Reactive [facility] Comment on above: Result Comment: Perf ormed at: [address] [id number] PhD Caroline East Performed By: #### 2 078767, 08009681, 4435674, 0381560, 4871722, 6899181 #### [facility] [address] [place] [address] Rubella IgGon 05-01-2023 Rubella virus IgG Qn (S) [IU]/mL Low Immune >0.99 [facility] Comment on above: Result Comment: Non- immune <0.90 Equivocal 0.90 - 0.99 Immune >0.99 Performed at: [address] [id number] PhD Caroline East Performed By: #### 2 130777, 79477238, 5679685, 7219882, 3977031, 9362449 #### [facility] [address] [place] [address] ABO/Rhon 04-30-2023 ABO/Rh Positive Invalid Interpretation Code [facility] Comment on above: Performed By: #### 2 024462, [id number] ####[facility] [address] [place] [address] ABSCon 04-30-2023 ABSC Gel Interp Negative Normal [facility] Comment on above: Performed By: #### 2 527144, [id number] ####[facility] [address] [place] [address] BLOOD BANKOrdered By: Diamond Junior on 04-30-2023 ABO/Rh Interp Positive Invalid Interpretation Code [facility] BB Subsection ABSC Gel Interp Negative (04/30/23 9:30 AM) Normal [facility] BB Subsection BhCG Quanton 04-30-2023 [place] [address] m[IU]/mL High 1-3 [facility] Comment on above: Result Comment: GEST ATIONAL AGE HCG RANGE (mIU/mL) NON- <1-3 0.2-1 WEEKS 5-50 1-2 WEEKS 50-500 2-3 WEEKS 100-5,000 3-4 WEEKS 500-10,000 4-5 WEEKS 1,000-50,000 5-6 WEEKS 10,000-100,000 6-8 WEEKS 15,000-200,000 8-12 WEEKS 10,000-100,000 Performed By: #### 2 424980, 93676628, 5968054, 3259181, 2759474, 9052059 #### [facility] [address] [place] [address] CBC w/Indiceson 04-30-2023 Erythrocyte distribution width (RBC) [Ratio] 13.7 % Normal 10.9-14.2 [facility] Comment on above: Performed By: #### 2 946178, 63692514, 9195542, 8930832, 5706316, 5368177 #### [facility] [address] [place] [address] Hematocrit (Bld) [Volume fraction] 40.7 % Normal 34.0-46.0 [facility] Comment on above: Performed By: #### 2 949662, 13183974, 8597647, 7583363, 3881857, 6033773 #### [facility] [address] [place] [address] Hemoglobin (Bld) [Mass/Vol] 13.8 g/dL Normal 12.0-16.0 [facility] Comment on above: Performed By: #### 2 739264, 48762765, 6307231, 2441392, 0980861, 2046684 #### [facility] [address] [place] [address] MCH (RBC) [Entitic mass] 30.5 pg Normal 27.0-34.0 [facility] Comment on above: Performed By: #### 2 577084, 98996925, 6443664, 9859811, 2241331, 3079679 #### [facility] [address] [place] [address] MCHC (RBC) [Mass/Vol] 33.9 g/dL Normal 31.4-36.0 [facility] Comment on above: Performed By: #### 2 493901, 27854635, 3681330, 8368250, 5627131, 0561400 #### [facility] [address] [place] [address] MCV (RBC) [Entitic vol] 89.9 fL Normal 80.0-100.0 [facility] Comment on above: Performed By: #### 2 675035, 18315689, 5275102, 9286026, 2136748, 6922724 #### [facility] [address] [place] [address] Platelet mean volume (Bld) [Entitic vol] 8.2 fL Normal 6.4-10.8 [facility] Comment on above: Performed By: #### 2 729919, 60510624, 3099097, 3345109, 7378881, 5731969 #### [facility] [address] [place] [address] Platelets (Bld) [#/Vol] 279.0 E9/L Normal 150.0-500.0 [facility] Comment on above: Performed By: #### 2 827593, 94067884, 0846476, 7178689, 3795576, 0891628 #### [facility] [address] [place] [address] RBC (Bld) [#/Vol] 4.5 E12/L Normal 4.3-5.9 [facility] Comment on above: Performed By: #### 2 060404, 22568751, 8608538, 0086301, 5442276, 6899750 #### [facility] [address] [place] [address] WBC corrected for nucl RBC Auto (Bld) [#/Vol] 5.8 E9/L Normal 4.0-11.0 [facility] Comment on above: Performed By: #### 2 373557, 71925543, 3165057, 6474866, 2703537, 9225978 #### [facility] [address] [place] [address] CHEMISTRYOrdered By: SYSTEM SYSTEM on 04-30-2023 [place] [address] m[IU]/mL High 1 - 3 mIU/mL [facility] Remisol Consent for Treatmenton 04-14 Consent for Treatment [id number]#[id number]:12 7 Normal [facility] HEMATOLOGYOrdered By: Temi Romero on [...] 8.2 fL Normal 6.4 - 10.8 fL [facility] HemeAutoSS Platelets (Bld) [#/Vol] 279.0 E9/L Normal 150.0 - 500.0 E9/L [facility] HemeAutoSS RBC (Bld) [#/Vol] 4.5 E12/L Normal 4.3 - 5.9 E12/L [facility] HemeAutoSS WBC corrected for nucl RBC Auto (Bld) [#/Vol] 5.8 E9/L Normal 4.0 - 11.0 E9/L [facility] HemeAutoSS PAP [id number] 04-30-2023 Collection Technique BRUSH-SPATULA Normal [facility] Comment on above: Performed By: #### 2 200386, 58310186, 5167092, 3526656, 3187863, 3907536 #### [facility] [address] [place] [address] Gynecological Body Site ENDOCERVIX Normal [facility] Comment on above: Performed By: #### 2 488056, 82760031, 1631040, 9113547, 4322053, 5636121 #### [facility] [address] [place] [address] Physician Orderon 04-30-2023 Physician Order [id number]#[id number]:1 27 Normal [facility] Physician Order [id number]#1.00CD:1 27 Normal [facility] BhCG Quanton 04-26-2023 [place] [address] m[IU]/mL High 1-3 [facility] Comment on above: Result Comment: GEST ATIONAL AGE HCG RANGE (mIU/mL) NON- <1-3 0.2-1 WEEKS 5-50 1-2 WEEKS 50-500 2-3 WEEKS 100-5,000 3-4 WEEKS 500-10,000 4-5 WEEKS 1,000-50,000 5-6 WEEKS 10,000-100,000 6-8 WEEKS 15,000-200,000 8-12 WEEKS 10,000-100,000 Performed By: #### 2 707773, 67685360, 9645932, 2642808, 4911972, 4596224 #### [facility] [address] [place] [address] CHEMISTRYOrdered By: SYSTEM SYSTEM on 04-26-2023 [place] [address] m[IU]/mL High 1 - 3 mIU/mL [facility] Remisol Consent for Treatmenton 04-14 Consent for Treatment [id number]#[id number]:12 7 Normal [facility] Discharge Instructionson Discharge Instructions [id number]#1.00CD:1 27 Normal [facility] ED Clinical Summaryon 2022 ED Clinical Summary (Inserted Image. Maryann ble to display) [address] [address] ED Clinical Summary Person Information Name: RHIANNARONEN GutierrezSUSAN D Sloane/[facility] Age: 27 Years : 1995 Sex: Female Language: [place]er PCP: THANG MILLAN CNP Marital Status: Single Phone: [phone] Visit Id: Visit Reason: Abdominal pain - [...] 04/26/2023 11:11:44 04/26/2023 11:11:44 04/26/2023 11:11:44 AD[address]: [address] [facility] [id number] PHYS DOC NOTES: MEDICAL INFORMATION: Prescriptions Given: [...] up: With: Address: When: [address], [facility] [address], [place] [address] Business (1) In 3 days 04/29/2023 DIAGNOSIS: Abdominal pain; Normal [facility] ED Note-Physicianon 04-26-20 ED Note-Physician Basic Information [...] no infection. Ultrasound was obtained discussed with communications technician. There is intrauterine measuring around 5 weeks. No gross abnormality. Results are discussed the patient, she is resting comfortably and is discharged home to follow-up with ROOF MECHANIC. Patient was encouraged to return to the [...] Jung In 3 days 04/29/[address] [place] [address]- Business (1) Additional Instructions: Patient Education Abdominal Pain During Attestation Patient seen and evaluated by the physician bilingual medical assistant. Attending physician was present in the emergency department and supervised care. This visit was performed by both the physician and an APC. I performed all aspects of the MDM as documented. This report was transcribed using voice recognition software. Every effort was made to ensure accuracy, however, inadvertently computerized textile artist mistakes may be present. 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 Normal [facility] Comment on above: Result Comment: [...] keep your urine pale yellow. ? Take ipkt-mrn-tnftive and prescription medicines only as told by [...] provider. Document Revised: 06/14/2021 Document Reviewed: 06/14/2021 Rewarding Return Patient Education ? 2022 Jipio. Normal [facility] ED Patient Summaryon 023 ED Patient Summary (Inserted Image. Maryann ble to display) [place] [address] Patient Discharge Instructions Person Information Name: SUSAN BRO Age: 27 Years Arrival Date: 04/26/2023 08:50:01 Discharge Diagnosis: Abdominal pain; Primary Care Physician: THANG MILLAN CNP Provider Information Primary Provider: Laura Noel M.D. Advanced Resource Conservation Manager:Jos Ugalde PA-C The exam and treatment you received in the Emergency Department were for an urgent problem and are not intended as complete care. It is important that you follow up with a doctor, nurse practitioner, or physician?s bilingual medical assistant for ongoing care. If your symptoms [...] Follow-up Instructions: With: Address: When: [address], [facility] [address], [place] [address] Business (1) In 3 days 04/29/2023 In the event that this physician does not participate in your insurance network, please consult with your insurance company to find a nearby participating provider. Patient Education Materials: Abdominal Pain During A MESSAGE TO ALL PATIENTS REGARDING OPIOIDS PRESCRIPTION OPIOIDS: WHAT YOU NEED TO KNOW Prescription opioids can be used to help relieve kvpsytee-ae-nczqqp pain and are often prescribed following a [...] be struggling with addiction, tell your health school childcare attendant and ask for guidance or call SAMHSA?S National Helpline (more content not included)... Normal [facility] UA With Cult Reflexon 2022 Bilirubin Ql (U) Negative Normal Negative [facility] Comment on above: Performed By: #### 2 683757, 98343632, 6642033, 7199578, 8658022, 8082643 #### [facility] [address] [place] [address] Clarity (U) CLEAR Normal Clear [facility] Comment on above: Performed By: #### 2 283859, 50446566, 2445404, 1422595, 8383872, 9461571 #### [facility] [address] [place] [address] Color (U) YELLOW Normal Yellow [facility] Comment on above: Performed By: #### 2 822062, 64134674, 4828677, 5074800, 8641323, 4604974 #### [facility] [address] [place] [address] Crystals LM Ql (Urine sed) Present Normal [facility] Comment on above: Performed By: #### 2 517237, 75641882, 2840179, 9785973, 0689765, 9701327 #### [facility] [address] [place] [address] Epithelial cells.squamous LM.HPF (Urine sed) [#/Area] 0-2 Normal 0-2 [facility] Comment on above: Performed By: #### 2 835304, 49012168, 5006514, 2475664, 6488758, 7585649 #### [facility] [address] [place] [address] Glucose Test strip (U) [Mass/Vol] Negative Normal Negative [facility] Comment on above: Performed By: #### 2 457926, 00081809, 9151111, 9505293, 3035818, 4970741 #### [facility] [address] [place] [address] Hemoglobin Ql (U) Negative Normal Negative [facility] Comment on above: Performed By: #### 2 931367, 58791466, 8924665, 2235226, 3801260, 3310081 #### [facility] [address] [place] [address] Ketones (U) [Mass/Vol] Negative Normal Negative [facility] Comment on above: Performed By: #### 2 566277, 36636702, 8585149, 1177099, 7092860, 0555930 #### [facility] [address] [place] [address] Bramwell.plasma/Bramwell .RBC (Bld) [Mass ratio] 0-3 Normal 0-3 [facility] Comment on above: Performed By: #### 2 371079, 91330902, 8997557, 5096194, 9942173, 0631496 #### [facility] [address] [place] [address] Mucus Ql (Urine sed) 2+ Normal [facility] Comment on above: Performed By: #### 2 555049, 93646308, 2967874, 0880547, 8973053, 7322870 #### [facility] [address] [place] [address] Nitrite Ql (U) Negative Normal Negative [facility] Comment on above: Performed By: #### 2 730136, 13491004, 4739567, 4944011, 7366570, 5999364 #### [facility] [address] [place] [address] pH (U) 8.5 [pH] Invalid Interpretation Code 5.0-9.0 [facility] Comment on above: Performed By: #### 2 162015, 26507889, 0973988, 9553053, 4474671, 3866904 #### [facility] [address] [place] [address] Protein (U) [Mass/Vol] Negative Normal Negative [facility] Comment on above: Performed By: #### 2 190156, 41888375, 1818281, 0152956, 1316297, 9510956 #### [facility] [address] [place] [address] Specific gravity (U) [Rel density] 1.015 Invalid Interpretation Code 1.005-1.030 [facility] Comment on above: Performed By: #### 2 487377, 13311247, 0744723, 6877310, 6995369, 3496227 #### [facility] [address] [place] [address] Type of Urine collection method Clean Catch Normal [facility] Comment on above: Performed By: #### 2 457221, 20254544, 7855635, 9315720, 5965729, 6907144 #### [facility] [address] [place] [address] Urobilinogen Qn (U) 1.0 {Rola'U}/dL Normal 0.0-1.0 [facility] Comment on above: Performed By: #### 2 807354, 39204789, 5599664, 3983473, 4369366, 5165526 #### [facility] [address] [place] [address] WBC Auto Ql (U) Negative Normal Negative [facility] Comment on above: Performed By: #### 2 167660, 26405028, 2529482, 5195372, 6626034, 3447932 #### [facility] [address] [place] [address] WBC LM.HPF (Urine sed) [#/Area] 0-5 Normal 0-5 [facility] Comment on above: Performed By: #### 2 858018, 12193471, 2158484, 2299193, 5492188, 0329216 #### [facility] [address] [place] [address] URINALYSISOrdered By: An Lassiter on 04-26-2023 Bilirubin [...] AM) Normal Negative [facility] UA Auto SS Bramwell.plasma/Bramwell .RBC (Bld) [Mass ratio] 0-3 /HPF Normal [...] [facility] UA Auto SS Urobilinogen Qn (U) 1.4995978 {Rola'U}/dL Normal 0.0 - 1.0 EU/dL [facility] [...] Signed by: Ladarius Davis MD Transcribed by: RNIKU Technologist: CASANDRA Technical Comments LMP : 02/21/23 Irregular History 2 Para 1 Normal [facility] US Transvaginalon 04-26-2023 US Transvaginal Exam Date/Time: 04/26/2023 10:50 EDT Reason for Exam: Pain Report Refer to concurrent first trimester pelvic ultrasound. Ordering Provider: Jos Ugalde FINAL REPORT Dictated: 04/26/2023 11:19 am Ladarius Davis MD Signed (Electronic Signature): 04/26/2023 11:19 am Signed by: Ladarius Davis MD Transcribed by: RINKU Technologist: CASANDRA Normal [facility] CHEMISTRYOrdered By: SYSTEM SYSTEM on 01-31-2023 Anion gap [Moles/Vol] 12 mmol/L Normal 6 - 16 mEq/L [facility] Remisol Calcium [Mass/Vol] 9.1 mg/dL Normal 8.9 [...] Normal >=59mL/min/ 1.73 m2 [facility] Chem S Glucose [Mass/Vol] 84 [...] Normal 4.0 - 11.0 E9/L FT HemeAutoSS SEROLOGYOrdered By: Nova Mccarty on 01-31-2023 [...] AM) Normal Negative [facility] UA Auto SS Bramwell.plasma/Bramwell .RBC (Bld) [Mass ratio] 0-3 /HPF Normal [...] [facility] UA Auto SS Urobilinogen Qn (U) 0.3871273 {Rola'U}/dL Normal 0.0 - 1.0 EU/dL [facility] [...] AM) Normal Negative [facility] UA Auto SS Bramwell.plasma/Bramwell .RBC (Bld) [Mass ratio] 0-3 /HPF Normal [...] [facility] UA Auto SS Urobilinogen Qn (U) 0.6982398 {Rola'U}/dL Normal 0.0 - 1.0 EU/dL [facility] [...] PM) Normal Negative [facility] UA Auto SS Bramwell.plasma/Bramwell .RBC (Bld) [Mass ratio] 0-3 /HPF Normal [...] Code 1.005 - 1.030 [facility] UA Auto SS UA Spec Desc Clean Catch (09/12/22 8:15 PM) Normal [facility] UA Auto SS Urobilinogen Qn (U) 0.8468227 {Rola'U}/dL Normal 0.0 - 1.0 EU/dL [facility] UA Auto SS WBC Auto Ql (U) Negative (09/12/22 8:15 PM) Normal Negative [facility] UA Auto SS WBC LM.HPF (Urine sed) [#/Area] 0-5 /HPF Normal 0-5/HPF [facility] UA Auto SS CHEMISTRYOrdered By: [...] Normal >=59mL/min/ 1.73 m2 [facility] Chem S GFR/1.73 sq M.predicted among non-blacks MDRD (S/P/Bld) [Vol rate/Area] mL/min/1.73 m2 Normal >=59mL/min/ 1.73 m2 [facility] Chem S Glucose [Mass/Vol] 87 [...] 5 - 80 pg/mL [facility] HemeManSS COAGULATIONOrdered By: Yamile Li [...] 8:22 PM) Invalid Interpretation Code Not Detected [facility] Man [facility]ero Comment on above: Result Comment: Resu lts Called To Berna Cook RN/PARIS By AGNIESZKA And Read Back For Confirmation [...] (Urine sed) [#/Area] 0-2 /HPF Normal 0-2/HPF [facility] UA Auto SS Glucose Test strip (U) [Mass/Vol] Negative (08/30/22 9:45 PM) Normal Negative [facility] UA Auto SS Hemoglobin Ql (U) Negative (08/30/22 9:45 PM) Normal Negative [facility] UA Auto SS Ketones (U) [Mass/Vol] Negative (08/30/22 9:45 PM) Normal Negative [facility] UA Auto SS Bramwell.plasma/Bramwell .RBC (Bld) [Mass ratio] 0-3 /HPF Normal 0-3/HPF [facility] UA Auto SS Nitrite Ql (U) Negative (08/30/22 9:45 PM) Normal Negative [facility] UA Auto SS pH (U) 6.0 *NA* (08/30/22 9:45 PM) Invalid Interpretation Code 5.0 - 9.0 [facility] UA Auto SS Protein (U) [Mass/Vol] Negative (08/30/22 9:45 PM) Normal Negative [facility] UA Auto SS Specific gravity (U) [Rel density] 1.010 *NA* (08/30/22 9:45 PM) Invalid Interpretation Code 1.005 - 1.030 [facility] UA Auto SS UA Spec Desc Clean Catch (08/30/22 9:45 PM) Normal [facility] UA Auto SS Urobilinogen Qn (U) 0.8950345 {Rola'U}/dL Normal 0.0 - 1.0 EU/dL [facility] UA Auto SS WBC Auto Ql (U) Negative (08/30/22 9:45 PM) Normal Negative [facility] UA Auto SS WBC LM.HPF (Urine sed) [#/Area] 0-5 /HPF Normal 0-5/HPF [facility] UA Auto SS BLOOD BANKOrdered By: Janet Reyes on 08-22-2022 ABO/Rh Interp Positive Invalid Interpretation Code [facility] BB Subsection ABSC Gel Interp Negative (08/22/22 4:03 PM) Normal [facility] BB Subsection FMHV 0 mL Invalid Interpretation Code [facility] Man Sero CHEMISTRYOrdered By: SYSTEM SYSTEM on 08-22-2022 Albumin [Mass/Vol] 2.7 g/dL Low 3.3 - 5.0 gm/dL [facility] Remisol Albumin/Globulin [Mass ratio] 0.7 {ratio} Low [...] PM) Normal Negative [facility] UA Auto SS Bramwell.plasma/Bramwell .RBC (Bld) [Mass ratio] 0-3 /HPF Normal [...] [facility] UA Auto SS Urobilinogen Qn (U) 0.9940157 {Rola'U}/dL Normal 0.0 - 1.0 EU/dL [facility] [...] AM) Normal Negative [facility] UA Auto SS Bramwell.plasma/Bramwell .RBC (Bld) [Mass ratio] 0-3 /HPF Normal [...] (08/18/22 4:08 AM) Normal [facility] UA Auto SS Urobilinogen Qn (U) 0.5481721 {Rola'U}/dL Normal 0.0 - 1.0 EU/dL [facility] UA Auto SS WBC Auto Ql (U) 2+ *ABN* (08/18/22 4:08 AM) Invalid Interpretation Code Negative [facility] UA Auto SS WBC LM.HPF (Urine sed) [#/Area] 6-15 /HPF Invalid Interpretation Code 0-5/HPF [facility] UA Auto SS BLOOD BANKOrdered By: Tom Avelar on 08-13-2022 ABO/Rh Interp Positive Invalid Interpretation Code [facility] BB Subsection ABSC Gel Interp Negative (08/13/22 6:26 PM) Normal [facility] BB Subsection FMHV 0 mL Invalid Interpretation Code [facility] Man Sero CHEMISTRYOrdered By: SYSTEM [...] [Mass/Vol] <10 (08/13/22 6:26 PM) Normal <10 [facility] Sero Fibrinogen Coag (PPP) [Mass/Vol] 420 [...] Interpretation Code Negative [facility] UA Auto SS Bramwell.plasma/Bramwell .RBC (Bld) [Mass ratio] 0-3 /HPF Normal [...] [facility] UA Auto SS Urobilinogen Qn (U) 0.3490034 {Rola'U}/dL Normal 0.0 - 1.0 EU/dL [facility] [...] AM) Normal Negative [facility] UA Auto SS Bramwell.plasma/Bramwell .RBC (Bld) [Mass ratio] 0-3 /HPF Normal [...] [facility] UA Auto SS Urobilinogen Qn (U) 0.3812741 {Rola'U}/dL Normal 0.0 - 1.0 EU/dL [facility] [...] (U) Yellow (07/17/22 9:25 AM) Normal Yellow [facility] UA Auto SS Epithelial cells.squamous LM.HPF (Urine sed) [#/Area] 3-4 /HPF Normal 0-2/HPF [facility] UA Auto SS Glucose Test strip (U) [Mass/Vol] Negative (07/17/22 9:25 AM) Normal Negative [facility] UA Auto SS Hemoglobin Ql (U) Negative (07/17/22 9:25 AM) Normal Negative [facility] UA Auto SS Ketones (U) [Mass/Vol] Negative (07/17/22 9:25 AM) Normal Negative [facility] UA Auto SS Bramwell.plasma/Bramwell .RBC (Bld) [Mass ratio] 0-3 /HPF Normal 0-3/HPF [facility] UA Auto SS Nitrite Ql (U) Negative (07/17/22 9:25 AM) Normal Negative [facility] UA Auto SS pH (U) 7.0 *NA* (07/17/22 9:25 AM) Invalid Interpretation Code 5.0 - 9.0 [facility] UA Auto SS Protein (U) [Mass/Vol] Negative (07/17/22 9:25 AM) Normal Negative [facility] UA Auto SS Specific gravity (U) [Rel density] <=1.005 *NA* (07/17/22 9:25 AM) Invalid Interpretation Code 1.005 - 1.030 [facility] UA Auto SS UA Spec Desc Clean Catch (07/17/22 9:25 AM) Normal [facility] UA Auto SS Urobilinogen Qn (U) 0.6379924 {Rola'U}/dL Normal 0.0 - 1.0 EU/dL [facility] UA Auto SS WBC Auto Ql (U) Negative (07/17/22 9:25 AM) Normal Negative [facility] UA Auto SS WBC LM.HPF (Urine sed) [#/Area] 0-5 /HPF Normal 0-5/HPF [facility] UA Auto SS CHEMISTRYOrdered By: SYSTEM SYSTEM on 06-28-2022 Glucose 1 Hr post 50 g glucose PO [Mass/Vol] 93 mg/dL Normal 55 - 140 mg/dL [facility] Remisol HEMATOLOGYOrdered By: Keila Ring on 06-28-2022 Hematocrit (Bld) [Volume fraction] 35.4 % Normal 34.0 - 46.0 % [facility] HemeAutoSS Hemoglobin (Bld) [Mass/Vol] 12.1 g/dL Normal 12.0 - 16.0 gm/dL [facility] HemeAutoSS BLOOD BANKOrdered By: Alliso n Corrine on 06-19-2022 ABO/Rh Interp Positive Invalid Interpretation Code [facility] BB Subsection ABSC Gel Interp Negative (06/19/22 12:15 AM) Normal [facility] BB Subsection FMHV 0 mL Invalid Interpretation Code [facility] Man Sero CHEMISTRYOrdered By: SYSTEM [...] [Mass/Vol] <10 (06/19/22 12:15 AM) Normal <10 [facility] Man Sero Fibrinogen Coag (PPP) [Mass/Vol] 367 [...] PM) Normal Negative [facility] UA Auto SS Bramwell.plasma/Bramwell .RBC (Bld) [Mass ratio] 0-3 /HPF Normal [...] [facility] UA Auto SS Urobilinogen Qn (U) 0.8889340 {Rola'U}/dL Normal 0.0 - 1.0 EU/dL [facility] [...] PM) Normal Negative [facility] UA Auto SS Bramwell.plasma/Bramwell .RBC (Bld) [Mass ratio] 0-3 /HPF Normal 0-3/HPF [facility] UA Auto SS Mucus Ql (Urine sed) Trace (05/01/22 5:20 PM) Normal [facility] UA Auto SS Nitrite Ql (U) Negative (05/01/22 5:20 PM) Normal Negative [facility] UA Auto SS pH (U) 5.5 *NA* (05/01/22 5:20 PM) Invalid Interpretation Code 5.0 - 9.0 [facility] UA Auto SS Protein (U) [Mass/Vol] Trace *ABN* (05/01/22 5:20 PM) Invalid Interpretation Code Negative [facility] UA Auto SS Specific gravity (U) [Rel density] >=1.030 *NA* (05/01/22 5:20 PM) Invalid Interpretation Code 1.005 - 1.030 [facility] UA Auto SS UA Spec Desc Random Urine (05/01/22 5:20 PM) Normal [facility] UA Auto SS Urobilinogen Qn (U) 1.3397907 {Rola'U}/dL Normal 0.0 - 1.0 EU/dL [facility] UA Auto SS WBC Auto Ql (U) Negative (05/01/22 5:20 PM) Normal Negative [facility] UA Auto SS WBC LM.HPF (Urine sed) [#/Area] 0-5 /HPF Normal 0-5/HPF [facility] UA Auto SS BLOOD BANKOrdered By: Shayy Medina on 04-02-2022 ABO/Rh Interp Positive Invalid Interpretation Code [facility] BB Subsection ABSC Gel Interp Negative (04/02/22 7:17 AM) Normal [facility] BB Subsection FMHV 0 mL Invalid Interpretation Code [facility] Man Sero CHEMISTRYOrdered By: SYSTEM [...] AM) Normal Negative [facility] UA Auto SS Bramwell.plasma/Bramwell .RBC (Bld) [Mass ratio] 0-3 /HPF Normal [...] [facility] UA Auto SS Urobilinogen Qn (U) 0.5942223 {Rola'U}/dL Normal 0.0 - 1.0 EU/dL [facility] [...] PM) Normal Negative [facility]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 Yard[employer] Operator: PSC Transcribe Date/Time: Jul 23 2017 1:44P Dictated by : LUIS CARLOS PALM MD This examination was interpreted and the report reviewed and electronically signed by: LUIS CARLOS PALM MD on Jul 23 2017 1:45PM ESTXR KNEE LIMITED 2V AP/LAT RT Final Result IMPRESSION: No acute/significant pathology detected. Yardage Control Operator: PSCB Transcribe Date/Time: Jul 23 2017 [...] further evaluated with MRI if clinically indicated. Yardage Control Operator: PSCB Transcribe Date/Time: Jul 23 2017 1:34P Dictated by : BRANDT HOLLINS MD This examination was interpreted and the report reviewed and electronically signed by: MARII MCCLURE MD on Jul 23 2017 1:45PM ESTXR HIP GENERAL 3V PELV/AP/LAT LT Final Result IMPRESSION: No acute/significant pathology detected. Yardage Control Operator: [facility] Transcribe Date/Time: Jul 23 2017 1:42P Dictated by : LUIS CARLOS PALM MD This examination was interpreted and the report reviewed and electronically signed by: LUIS CARLOS PALM MD on Jul 23 2017 1:43PM ESTXR SHOULDER GENERAL 3V OR MORE AP/TRUE AP/OTHER LT Final Result IMPRESSION: No acute/significant pathology detected. Yardage Control Operator: [facility] Transcribe Date/Time: Jul 23 2017 1:41P [...] also need to follow[facility] with [facility] for furtherevaluation and assessment. Patient understands plan [...] assessment of the patient andhave reviewed the PA/LATHE SPOTTER note. My fair findings include:History Involved in [...] 4:34 PMCarl Dario Torres MD07/23/17 1636 Normal [facility] MRI CERVICAL SPINE WO IVCONo n [...] MCCLURE MD on Jul 23 2017 3:41PM [id number] Normal [facility] PROGRESSon 07-23-2017 PROGRESS HNO ID: [id number] thor: Anna Lawler RtService: (none)Author Type: (none)Type: Progress NotesFiled: 07/23/2017 3:10 PMNote Text: Radiology Service Progress NotePATIENT NAME: Susan Byrd LennieMRN: [id number] OF SERVICE: July 23, 2017TIME: 3:09 PMPATIENT IDENTITY VERIFICATION COMPLETED USING TWO (2) METHODS: Patientconfirmed name verbally and Date of .PATIENT GENDER DATA: Female. status: : NoBreastfeeding status: NO.PATIENT RELEVANT IMPLANT DATA REVIEWED: YesRADIOLOGY DEPARTMENT: MR; Exam(s) Completed: Spine: Cervical spine inc-collarPERIPHERAL IV DATA: Not applicableSIGNED BY: Anna Lawler A.A.S.,RT (R) (CT)(MR)July 23, 2017 3:09 PM Normal [facility] PROGRESS HNO ID: [id number] thor: Shayy Ramires RtService: (none)Author Type: (none)Type: Progress NotesFiled: 07/23/2017 1:36 PMNote Text: Radiology Service Progress NotePATIENT NAME: Susan HogueMRN: [id number] OF SERVICE: July 23, 2017TIME: 1:36 PMPATIENT IDENTITY VERIFICATION COMPLETED USING TWO (2) METHODS: Patientconfirmed name verbally and Date of .PATIENT GENDER DATA: Female. status: : NoBreastfeeding status: NO.PATIENT RELEVANT IMPLANT DATA REVIEWED: YesRADIOLOGY DEPARTMENT: CT; Exam(s) Completed: SpinePERIPHERAL IV DATA: Not applicableSIGNED BY: Shayy Ramires RtOctober 2016 1:36 PM Normal [facility] PROGRESS HNO ID: [id number] thor: Romelia () Alice Greene: (none)Author Type: TechnicianType: Progress NotesFiled: 07/23/2017 1:32 PMNote Text: Radiology Service Progress NotePATIENT NAME: Susan HogueMRN: [id number] OF SERVICE: July 23, 2017TIME: 1:32 PMPATIENT [...] Romelia Green RTOctober 2016 1:32 PM Normal [facility] XR HIP 3V PELV+ AP/LAT LTon [...] soft tissues are unremarkable.IMPRESSION:N o acute/significant pathology detected.Yardage Control Operator : LUCITA Transcribe Date/Time: Jul 23 2017 1:42PDictated by : Armando CHARLES examination was interpreted and the report reviewed and electronically signed by: LUIS CARLOS PALM MD on Jul 23 2017 1:43PM [id number] Normal [facility] XR KNEE 2V AP/LAT LTon 07-23 [...] soft tissues are unremarkable.IMPRESSION:N o acute/significant pathology detected.Yardage Control Operator : [facility] Transcribe Date/Time: Jul 23 2017 1:44PDictated by : Armando CHARLES examination was interpreted and the report reviewed and electronically signed by: LUIS CARLOS PALM MD on Jul 23 2017 1:45PM [id number] Normal [facility] XR KNEE 2V AP/LAT RTon 07-23 [...] soft tissues are unremarkable.IMPRESSION:N o acute/significant pathology detected.Yardage Control Operator : PSCB Transcribe Date/Time: Jul 23 2017 1:44PDictated by : Armando CHARLES examination was interpreted and the report reviewed and electronically signed by: LUIS CARLOS PALM MD on Jul 23 2017 1:45PM [id number] Normal [facility] XR SHLDR >/=3V AP/IMER AP/OTH R [...] soft tissues are unremarkable.IMPRESSION:N o acute/significant pathology detected.Yardage Control Operator : LUCITA Transcribe Date/Time: Jul 23 2017 1:41PDictated by : Armando CHARLES examination was interpreted and the report reviewed and electronically signed by: LUIS CARLOS PALM MD on Jul 23 2017 1:42PM [id number] Normal [facility] Vital Signs Date Time Vital Sign Value Performing Clinician Facility 11-06-2024 09:24-0500 Body mass index (BMI) [Ratio] 36.56 kg/m2 [employer] Work Phone: [facility] 11-06-2024 09:24-0500 Body weight 93.62 kg [employer] Work Phone: [facility] 11-06-2024 09:24-0500 Diastolic blood pressure 74 mm[Hg] Rashaun Perry DO Work Phone: [facility] 11-06-2024 09:24-0500 Systolic blood pressure 132 mm[Hg] Rashaun Perry DO Work Phone: [facility] 11-27-2023 08:38-0500 Body weight 85.91 kg Rashaun Perry DO Work Phone: [facility] 11-27-2023 08:38-0500 Diastolic blood pressure 78 mm[Hg] Rashaun Perry DO Work Phone: [facility] 11-27-2023 08:38-0500 Systolic blood pressure 114 mm[Hg] Rashaun Perry DO Work Phone: [facility] 11-20-2023 11:13-0500 Body weight 84.42 kg Rashaun Perry DO Work Phone: [facility] 11-20-2023 11:13-0500 Diastolic blood pressure 70 mm[Hg] Rashaun Perry DO Work Phone: [facility] 11-20-2023 11:13-0500 Systolic blood pressure 110 mm[Hg] Rashaun Perry DO Work Phone: [facility] 11-04-2023 08:13-0500 Blood Pressure Location Rashaun PERRY [facility] 11-04-2023 08:13-0500 Body temperature 98.06 [degF] Rashaun PERRY [facility] 11-04-2023 08:13-0500 Diastolic blood pressure 68 mm[Hg] Rashaun PERRY [facility] 11-04-2023 08:13-0500 Heart rate 77 /min Rashaun PERRY [facility] 11-04-2023 08:13-0500 Mean blood pressure 81 mm[Hg] Rashaun PERRY [facility] 11-04-2023 08:13-0500 SaO2% (BldA) [Mass fraction] 99 % Rashaun PERRY [facility] 11-04-2023 08:13-0500 Systolic blood pressure 106 mm[Hg] Rashaun PERRY [facility] 11-04-2023 08:00-0500 Hourly Rounding Rashaun PERRY [facility] 11-04-2023 08:00-0500 Promise to Return Rashaun PERRY [facility] 08-18-2023 07:30-0400 Body temperature 98.24 [degF] Julia Nataprawira [facility] 08-18-2023 07:30-0400 Diastolic blood pressure 67 mm[Hg] Julia Nataprawira [facility] 08-18-2023 07:30-0400 Heart rate 95 /min Julia Nataprawira [facility] 08-18-2023 07:30-0400 Hourly Rounding Julia Nataprawira [facility] 08-18-2023 07:30-0400 Mean blood pressure 89 mm[Hg] Julia Nataprawira [facility] 08-18-2023 07:30-0400 Respiratory rate 16 /min Julia Nataprawira [facility] 08-18-2023 07:30-0400 Systolic blood pressure 133 mm[Hg] Julia Nataprawira [facility] 07-25-2023 08:17-0400 Body temperature 97.7 [degF] Kristian Guillermo [facility] 07-25-2023 08:17-0400 Diastolic blood pressure 65 mm[Hg] Kristian Guillermo [facility] 07-25-2023 08:17-0400 Heart rate 73 /min Kristian Eagle [facility] 07-25-2023 08:17-0400 Respiratory rate 16 /min Kristianmark Guillermo [facility] 07-25-2023 08:17-0400 SaO2% (BldA) [Mass fraction] 100 % Kristian Guillermo [facility] 07-25-2023 08:17-0400 Systolic blood pressure 119 mm[Hg] Kristian Guillermo [facility] 06-28-2023 10:34-0400 Blood Pressure Location Roverto Spasic [facility] 06-28-2023 10:34-0400 Body temperature 98.24 [degF] Roverto Spasic [facility] 06-28-2023 10:34-0400 Diastolic blood pressure 78 mm[Hg] Roverto Spasic [facility] 06-28-2023 10:34-0400 Heart rate 81 /min Roverto Spasic [facility] 06-28-2023 10:34-0400 SaO2% (BldA) [Mass fraction] 99 % Roverto Spasic [facility] 06-28-2023 10:34-0400 Systolic blood pressure 119 mm[Hg] Roverto Spasic [facility] 06-14-2023 08:37-0400 Body temperature 98.6 [degF] Kristian Guillermo [facility] 06-14-2023 08:37-0400 Diastolic blood pressure 70 mm[Hg] Kristian Guillermo [facility] 06-14-2023 08:37-0400 Heart rate 69 /min Kristian Guillermo [facility] 06-14-2023 08:37-0400 Respiratory rate 18 /min Kristian Guillermo [facility] 06-14-2023 08:37-0400 SaO2% (BldA) [Mass fraction] 100 % Kristian Guillermo [facility] 06-14-2023 08:37-0400 Systolic blood pressure 110 mm[Hg] Kristian Guillermo [facility] 05-21-2023 23:00-0400 Diastolic blood pressure 64 mm[Hg] Kaylinn Dokken [facility] 05-21-2023 23:00-0400 Heart rate 64 /min Kaylinn Dokken [facility] 05-21-2023 23:00-0400 Mean blood pressure 77 mm[Hg] Kaylinn Dokken [facility] 05-21-2023 23:00-0400 Respiratory rate 18 /min Kaylinn Dokken [facility] 05-21-2023 23:00-0400 Systolic blood pressure 102 mm[Hg] Kaylinn Dokken [facility] 05-21-2023 21:50-0400 Hourly Rounding Kaylinn Dokken [facility] 05-21-2023 21:30-0400 Diastolic blood pressure 53 mm[Hg] Kaylinn Dokken [facility] 05-21-2023 21:30-0400 Heart rate 72 /min Kaylinn Dokken [facility] 05-21-2023 21:30-0400 Respiratory rate 19 /min Kaylinn Dokken [facility] 05-21-2023 21:30-0400 SaO2% (BldA) [Mass fraction] 100 % Kaylinn Dokken [facility] 05-21-2023 21:30-0400 Systolic blood pressure 91 mm[Hg] Kaylinn Dokken [facility] 05-21-2023 20:38-0400 Body temperature 98.42 [degF] Kaylinn Dokken [facility] 05-21-2023 20:38-0400 Diastolic blood pressure 73 mm[Hg] Kaylinn Dokken [facility] 05-21-2023 20:38-0400 Heart rate 60 /min Kaylinn Dokken [facility] 05-21-2023 20:38-0400 Respiratory rate 20 /min Kaylinn Dokken [facility] 05-21-2023 20:38-0400 Systolic blood pressure 109 mm[Hg] Kaylinn Dokken [facility] 04-26-2023 11:10-0400 Diastolic blood pressure 74 mm[Hg] [facility] 04-26-2023 11:10-0400 Heart rate 65 /min [facility] 04-26-2023 11:10-0400 Respiratory rate 14 /min [facility] 04-26-2023 11:10-0400 SaO2% (BldA) [Mass fraction] 100 % [facility] 04-26-2023 11:10-0400 Systolic blood pressure 108 mm[Hg] [facility] 04-26-2023 09:00-0400 Body temperature 98.24 [degF] [facility] 04-26-2023 09:00-0400 Diastolic blood pressure 72 mm[Hg] [facility] 04-26-2023 09:00-0400 Heart rate 80 /min [facility] 04-26-2023 09:00-0400 Mean blood pressure 85 mm[Hg] [facility] 04-26-2023 09:00-0400 Respiratory rate 18 /min [facility] 04-26-2023 09:00-0400 Systolic blood pressure 110 mm[Hg] [facility] 01-31-2023 11:43-0400 Diastolic blood pressure 67 mm[Hg] Kristian Guillermo [facility] 01-31-2023 11:43-0400 Heart rate 68 /min Kristian Eagle [facility] 01-31-2023 11:43-0400 Mean blood pressure 79 mm[Hg] Kristian Guillermo [facility] 01-31-2023 11:43-0400 Respiratory rate 16 /min Kristian Guillermo [facility] 01-31-2023 11:43-0400 SaO2% (BldA) [Mass fraction] 100 % Kristian Guillermo [facility] 01-31-2023 11:43-0400 Systolic blood pressure 103 mm[Hg] Kristian Guillermo [facility] 01-31-2023 11:03-0400 Diastolic blood pressure 73 mm[Hg] Kristian Guillermo [facility] 01-31-2023 11:03-0400 Heart rate 71 /min Kristian Guillermo [facility] 01-31-2023 11:03-0400 Mean blood pressure 81 mm[Hg] Kristian Eagle [facility] 01-31-2023 11:03-0400 Respiratory rate 12 /min Kristian Eagle [facility] 01-31-2023 11:03-0400 SaO2% (BldA) [Mass fraction] 100 % Kristian Eagle [facility] 01-31-2023 11:03-0400 Systolic blood pressure 98 mm[Hg] Kristian Eagle [facility] 01-31-2023 10:29-0400 Diastolic blood pressure 77 mm[Hg] Kristian Eagle [facility] 01-31-2023 10:29-0400 Heart rate 87 /min Kristian Eagle [facility] 01-31-2023 10:29-0400 Respiratory rate 21 /min Kristian Eagle [facility] 01-31-2023 10:29-0400 SaO2% (BldA) [Mass fraction] 99 % Kristian Guillermo [facility] 01-31-2023 10:29-0400 Systolic blood pressure 101 mm[Hg] Kristian Eagle [facility] 01-31-2023 09:51-0400 gluc 100 mg/dL Kristian Eagle [facility] 01-31-2023 09:51-0400 gluc Kristianmark Guillermo [facility] 01-31-2023 09:43-0400 Body temperature 98.42 [degF] Kristian Guillermo [facility] 01-31-2023 09:43-0400 Heart rate 75 /min Kristian Guillermo [facility] 01-31-2023 09:43-0400 Respiratory rate 18 /min Kristian Guillermo [facility] 09-22-2022 15:14-0500 Body temperature 98.24 [degF] Luis Carlos Jung [facility] 09-22-2022 15:14-0500 Diastolic blood pressure 84 mm[Hg] Luis Carlos Jung [facility] 09-22-2022 15:14-0500 Heart rate 76 /min Luis Carlos Jung [facility] 09-22-2022 15:14-0500 Mean blood pressure 97 mm[Hg] Luis Carlos Jung [facility] 09-22-2022 15:14-0500 Respiratory rate 20 /min Luis Carlos Jung [facility] 09-22-2022 15:14-0500 Systolic blood pressure 124 mm[Hg] Luis Carlos Jung [facility] 09-22-2022 15:00-0500 Blood Pressure Location Luis Carlos Jung [facility] 09-20-2022 17:15-0500 Hourly Rounding Luis Carlos Jung [facility] Comment on above: Result Comment: discharge instructions g iven with verbal understanding. monitors off; pt up to dress. 09-20-2022 16:15-0500 Diastolic blood pressure 77 mm[Hg] Luis Carlos Jung [facility] 09-20-2022 16:15-0500 Heart rate 78 /min Luis Carlos Jung [facility] 09-20-2022 16:15-0500 Mean blood pressure 92 mm[Hg] Luis Carlos Fabiana [facility] 09-20-2022 16:15-0500 Respiratory rate 18 /min Luis Carlos Fabiana [facility] 09-20-2022 16:15-0500 Systolic blood pressure 121 mm[Hg] Luis Carlos Fabiana [facility] 09-20-2022 13:16-0500 Diastolic blood pressure 80 mm[Hg] Luis Carlos Fabiana [facility] 09-20-2022 13:16-0500 Heart rate 80 /min Luis Carlos Fabiana [facility] 09-20-2022 13:16-0500 Mean blood pressure 93 mm[Hg] Luis Carlos Fabiana [facility] 09-20-2022 13:16-0500 Respiratory rate 18 /min Luis Carlos Fabiana [facility] 09-20-2022 13:16-0500 Systolic blood pressure 120 mm[Hg] Luis Carlos Fabiana [facility] 09-20-2022 09:48-0500 Diastolic blood pressure 79 mm[Hg] Luis Carlos Fabiana [facility] 09-20-2022 09:48-0500 Heart rate 94 /min Luis Carlos Fabiana [facility] 09-20-2022 09:48-0500 Hourly Rounding Luis Carlos Jung [facility] 09-20-2022 09:48-0500 Mean blood pressure 97 mm[Hg] Luis Carlos Fabiana [facility] 09-20-2022 09:48-0500 Respiratory rate 18 /min Luis Carlos Fabiana [facility] 09-20-2022 09:48-0500 Systolic blood pressure 132 mm[Hg] Luis Carlos Fabiana [facility] 09-19-2022 03:38-0500 Hourly Rounding Jj KARASIK [facility] Comment on above: Result Comment: pt walks off unit with a steady gait 09-19-2022 02:45-0500 Blood Pressure Location Jj KARASIK [facility] 09-19-2022 02:45-0500 Body temperature 98.42 [degF] Jj KARASIK [facility] 09-19-2022 02:45-0500 Diastolic blood pressure 77 mm[Hg] Jj KARASIK [facility] 09-19-2022 02:45-0500 Heart rate 62 /min Jj KARASIK [facility] 09-19-2022 02:45-0500 Hourly Rounding Jj KARASIK [facility] Comment on above: Result Comment: questions answered, guillaume monk 09-19-2022 02:45-0500 Mean blood pressure 91 mm[Hg] Jj KARASIK [facility] 09-19-2022 02:45-0500 Respiratory rate 18 /min Jj KARASIK [facility] 09-19-2022 02:45-0500 Systolic blood pressure 120 mm[Hg] Jj KARASIK [facility] 09-19-2022 01:45-0500 Blood Pressure Location Jj KARASIK [facility] 09-19-2022 01:45-0500 Body temperature 98.06 [degF] Jj KARASIK [facility] 09-19-2022 01:45-0500 Diastolic blood pressure 84 mm[Hg] Jj KARASIK [facility] 09-19-2022 01:45-0500 Heart rate 70 /min Jj MIKE [facility] 09-19-2022 01:45-0500 Hourly Rounding Jj MIKE [facility] Comment on above: Result Comment: pt brought to unit via w heelchair. Changes into gown independently and provides urine sample. Pt demonstrates ability to use call light. Needs met, call light in reach 09-19-2022 01:45-0500 Mean blood pressure 96 mm[Hg] Jj MIKE [facility] 09-19-2022 01:45-0500 Respiratory rate 18 /min Jj MIKE [facility] 09-19-2022 01:45-0500 Systolic blood pressure 120 mm[Hg] Jj MIKE [facility] 09-14-2022 12:15-0500 Hourly Rounding Luis Carlos Jung [facility] Comment on above: Result Comment: reviewed plan for disch and use of meds to treat head ache 09-14-2022 11:45-0500 Hourly Rounding Luis Carlos Jung [facility] Comment on above: Result Comment: STATES SHE FEELS MUCH BE TTER AND WANTS TO GO HOME 09-14-2022 11:15-0500 Diastolic blood pressure 73 mm[Hg] Luis Carlos Fabiana [facility] 09-14-2022 11:15-0500 Heart rate 74 /min Luis Carlos Jung [facility] 09-14-2022 11:15-0500 Hourly Rounding Luis Carlos Fabiana [facility] 09-14-2022 11:15-0500 Mean blood pressure 88 mm[Hg] Luis Carlos Jung [facility] 09-14-2022 11:15-0500 Systolic blood pressure 119 mm[Hg] Luis Carlos Fabiana [facility] 09-14-2022 11:00-0500 Diastolic blood pressure 66 mm[Hg] Luis Carlos Montesinosten [facility] 09-14-2022 11:00-0500 Heart rate 67 /min Luis Carlos Fabiana [facility] 09-14-2022 11:00-0500 Mean blood pressure 84 mm[Hg] Luis Carlos Fabiana [facility] 09-14-2022 11:00-0500 Systolic blood pressure 120 mm[Hg] Luis Carlos Montesinosten [facility] 09-14-2022 10:45-0500 Diastolic blood pressure 72 mm[Hg] Luis Carlos Montesinosten [facility] 09-14-2022 10:45-0500 Heart rate 75 /min Luis Carlos Jung [facility] 09-14-2022 10:45-0500 Mean blood pressure 90 mm[Hg] Luis Carlos Montesinosten [facility] 09-14-2022 10:45-0500 Systolic blood pressure 125 mm[Hg] Luis Carlos Jung [facility] 09-14-2022 09:30-0500 Blood Pressure Location Luis Carlos Jung [facility] 09-14-2022 09:30-0500 Body temperature 98.06 [degF] Luis Carlos Montesinosten [facility] 09-14-2022 09:30-0500 Respiratory rate 16 /min Luis Carlos Jung [facility] 09-12-2022 20:45-0500 Hourly Rounding Luis Carlos Jung [facility] Comment on above: Result Comment: dischage instructions gi merly, pt verbalizes understanding. pt ambulates off unit with steady gait 09-12-2022 20:00-0500 Blood Pressure Location Luis Carlos Jung [facility] 09-12-2022 20:00-0500 Diastolic blood pressure 79 mm[Hg] Luis Carlos Jung [facility] 09-12-2022 20:00-0500 Heart rate 84 /min Luis Carlos Jung [facility] 09-12-2022 20:00-0500 Hourly Rounding Luis Carlos Jung [facility] 09-12-2022 20:00-0500 Mean blood pressure 95 mm[Hg] Luis Carlos Jung [facility] 09-12-2022 20:00-0500 Respiratory rate 18 /min Luis Carlos Jung [facility] 09-12-2022 20:00-0500 Systolic blood pressure 128 mm[Hg] Luis Carlos Jung [facility] 09-12-2022 19:45-0500 Hourly Rounding Luis Carlos Fabiana [facility] Comment on above: Result Comment: [facility] Changes into gown independently, oriented to room, demonstrates ability to use call light, call light in reach 09-08-2022 08:32-0500 Blood Pressure Location Luis Carlos Jung [facility] 09-08-2022 08:32-0500 Body temperature 97.34 [degF] Luis Carlos Jung [facility] 09-08-2022 08:32-0500 Diastolic blood pressure 74 mm[Hg] Luis Carlos Jung [facility] 09-08-2022 08:32-0500 Heart rate 90 /min Luis Carlos Jung [facility] 09-08-2022 08:32-0500 Hourly Rounding Luis Carlos Jung [facility] Comment on above: Result Comment: PLAN OF CARE DISCUSSED 09-08-2022 08:32-0500 Mean blood pressure 90 mm[Hg] Luis Carlos Jung [facility] 09-08-2022 08:32-0500 Respiratory rate 18 /min Luis Carlos Jung [facility] 09-08-2022 08:32-0500 Systolic blood pressure 123 mm[Hg] Luis Carlos Jung [facility] 09-05-2022 22:00-0500 Body temperature 98.6 [degF] Kaylinn Dokken [facility] 09-05-2022 22:00-0500 Diastolic blood pressure 73 mm[Hg] Kaylinn Dokken [facility] 09-05-2022 22:00-0500 Mean blood pressure 85 mm[Hg] Kaylinn Dokken [facility] 09-05-2022 22:00-0500 Respiratory rate 27 /min Carrolylinn Dokken [facility] 09-05-2022 22:00-0500 SaO2% (BldA) [Mass fraction] 100 % Kaylinn Dokken [facility] 09-05-2022 22:00-0500 Systolic blood pressure 108 mm[Hg] Kaylinn Dokken [facility] 09-05-2022 21:01-0500 Heart rate 78 /min Kaylinn Dokken [facility] 09-05-2022 21:01-0500 Respiratory rate 20 /min Kaylinn Dokken [facility] 09-05-2022 21:01-0500 SaO2% (BldA) [Mass fraction] 94 % Kaylinn Dokken [facility] 09-05-2022 21:00-0500 Diastolic blood pressure 77 mm[Hg] Kaylinn Dokken [facility] 09-05-2022 21:00-0500 Mean blood pressure 87 mm[Hg] Kaylinn Dokken [facility] 09-05-2022 20:10-0500 Body temperature 97.7 [degF] Kaylinn Dokken [facility] 09-05-2022 20:10-0500 Diastolic blood pressure 81 mm[Hg] Kaylinn Dokken [facility] 09-05-2022 20:10-0500 Heart rate 83 /min Kaylinn Dokken [facility] 09-05-2022 20:10-0500 Respiratory rate 22 /min Kaylinn Dokken [facility] 09-05-2022 20:10-0500 SaO2% (BldA) [Mass fraction] 99 % Kaylinn Dokken [facility] 09-05-2022 20:10-0500 Systolic blood pressure 135 mm[Hg] Kaylinn Dokken [facility] 08-31-2022 01:03-0500 Hourly Rounding Luis Carlos Jung [facility] Comment on above: Result Comment: pt ambulates off unit at this time w/ steady gait. 08-31-2022 00:58-0500 Hourly Rounding Luis Carlos Jung [facility] Comment on above: Result Comment: this nurse gives dischar ge instructions to pt at this time. pt verbalizes understanding of all education given. denies further needs. will continue to monitor. 08-31-2022 00:50-0500 Blood Pressure Location Luis Carlos Jung [facility] 08-31-2022 00:50-0500 Diastolic blood pressure 69 mm[Hg] Luis Carlos Jung [facility] 08-31-2022 00:50-0500 Heart rate 67 /min Luis Carlos Jung [facility] 08-31-2022 00:50-0500 Hourly Rounding Luis Carlos Fabiana [facility] Comment on above: Result Comment: pt up to bathroom at thi s time to void and change into clothes. walks w/ steady gait. 08-31-2022 00:50-0500 Mean blood pressure 83 mm[Hg] Luis Carlos Jung [facility] 08-31-2022 00:50-0500 Respiratory rate 18 /min Luis Carlos Jung [facility] 08-31-2022 00:50-0500 Systolic blood pressure 112 mm[Hg] Luis Carlos Jung [facility] 08-30-2022 21:52-0500 Body temperature 98.06 [degF] Luis Carlos Jung [facility] 08-30-2022 21:52-0500 Diastolic blood pressure 74 mm[Hg] Luis Carlos Jung [facility] 08-30-2022 21:52-0500 Heart rate 82 /min Luis Carlos Jung [facility] 08-30-2022 21:52-0500 Mean blood pressure 90 mm[Hg] Luis Carlos Jung [facility] 08-30-2022 21:52-0500 Respiratory rate 18 /min Luis Carlos Jung [facility] 08-30-2022 21:52-0500 Systolic blood pressure 123 mm[Hg] Luis Carlos Jung [facility] 08-30-2022 21:45-0500 Blood Pressure Location Luis Carlos Jung [facility] 08-22-2022 17:19-0500 Hourly Rounding Luis Carlos Jung [facility] Comment on above: Result Comment: MONITORS OFF; PT UP TO D RESS. DISCHARGE INSTRUCTIONS GIVEN WITH VERBAL UNDERSTANDING. 08-22-2022 15:14-0500 Diastolic blood pressure 71 mm[Hg] Luis Carlos Jung [facility] 08-22-2022 15:14-0500 Heart rate 87 /min Luis Carlos Jung [facility] 08-22-2022 15:14-0500 Hourly Rounding Luis Carlos Jung [facility] 08-22-2022 15:14-0500 Mean blood pressure 86 mm[Hg] Luis Carlos Jung [facility] 08-22-2022 15:14-0500 Respiratory rate 18 /min Luis Carlos Jung [facility] 08-22-2022 15:14-0500 Systolic blood pressure 115 mm[Hg] Luis Carlos Jung [facility] 08-18-2022 12:28-0400 Hourly Rounding Luis Carlos Jung [facility] Comment on above: Result Comment: pt verbalizes understand ing of discharge instructions. pt states she has an appointment sunday with dr jung. pt ambulated out of unit 08-18-2022 10:28-0400 Hourly Rounding Luis Carlos Jung [facility] Comment on above: Result Comment: pt c/o left lower abd pa in. states it is intermittent and sharp. encouraged pt to get up and empty bladder. pt states pain is still 7/10. dr jung on unit & at bedside 08-18-2022 09:09-0400 Hourly Rounding Luis Carlos Fabiana [facility] Comment on above: Result Comment: pt sitting up in bed wit h breakfast tray, visitor at bedside 08-18-2022 07:15-0400 Blood Pressure Location Luis Carlos Jung [facility] 08-18-2022 07:15-0400 Diastolic blood pressure 56 mm[Hg] Luis Carlos Jung [facility] 08-18-2022 07:15-0400 Heart rate 69 /min Luis Carlos Fabiana [facility] 08-18-2022 07:15-0400 Mean blood pressure 74 mm[Hg] Luis Carlos Jung [facility] 08-18-2022 07:15-0400 Respiratory rate 16 /min Luis Carlos Jung [facility] 08-18-2022 07:15-0400 Systolic blood pressure 111 mm[Hg] Luis Carlos Fabiana [facility] 08-18-2022 05:58-0400 Blood Pressure Location Luis Carlos Jung [facility] 08-18-2022 05:58-0400 Diastolic blood pressure 59 mm[Hg] Luis Carlos Fabiana [facility] 08-18-2022 05:58-0400 Heart rate 67 /min Luis Carlos Fabiana [facility] 08-18-2022 05:58-0400 Mean blood pressure 77 mm[Hg] Luis Carlos Jung [facility] 08-18-2022 05:58-0400 Respiratory rate 16 /min Luis Carlos Jung [facility] 08-18-2022 05:58-0400 Systolic blood pressure 113 mm[Hg] Luis Carlos Jung [facility] 08-18-2022 04:06-0400 Blood Pressure Location Luis Carlos Jung [facility] 08-18-2022 04:06-0400 Body temperature 98.06 [degF] Luis Carlos Jung [facility] 08-18-2022 04:06-0400 Diastolic blood pressure 65 mm[Hg] Luis Carlos Jung [facility] 08-18-2022 04:06-0400 Heart rate 70 /min Luis Carlos Jung [facility] 08-18-2022 04:06-0400 Mean blood pressure 79 mm[Hg] Luis Carlos Jung [facility] 08-18-2022 04:06-0400 Respiratory rate 16 /min Luis Carlos Jung [facility] 08-18-2022 04:06-0400 Systolic blood pressure 107 mm[Hg] Luis Carlos Jung [facility] 08-13-2022 20:04-0400 Hourly Rounding Luis Carlos Jung [facility] Comment on above: Result Comment: Patient discharged off u nit. Discharge instructions were reviewed. Pt walks off unit without any notable signs or symtpoms of distress. 08-13-2022 19:45-0400 Hourly Rounding Luis Carlos Jung [facility] 08-13-2022 19:45-0400 Hourly Rounding Luis Carlos Jung [facility] Comment on above: Result Comment: Patient sitting in bed. BPP results reviewed with patient. Pt denied any additional questions. Call light within reach. 08-13-2022 18:12-0400 Heart rate 88 /min Luis Carlos Jung [facility] 08-13-2022 18:12-0400 Nursing Progress Note Reason Other: Pt updated on orders received from . jose understanding Luis Carlos Jung [facility] 08-13-2022 18:12-0400 SaO2% (BldA) [Mass fraction] 99 % Luis Carlos Jung [facility] 08-13-2022 17:33-0400 Body temperature 97.88 [degF] Luis Carlos Jung [facility] 08-13-2022 17:33-0400 Diastolic blood pressure 72 mm[Hg] Luis Carlos Jung [facility] 08-13-2022 17:33-0400 Mean blood pressure 88 mm[Hg] Luis Carlos Jung [facility] 08-13-2022 17:33-0400 Respiratory rate 18 /min Luis Carlos Jung [facility] 08-13-2022 17:33-0400 Systolic blood pressure 121 mm[Hg] Luis Carlos Jung [facility] 07-26-2022 10:22-0400 Hourly Rounding Luis Carlos Jung [facility] Comment on above: Result Comment: discharge instructions p rovided and pt signs discharge consent with RN witness. pt preparing for discharge, belly band placed on pt. RN offers wheelchair exit for discharge and pt declines and wants to walk down on own. 07-26-2022 10:22-0400 Promise to Return Luis Carlos Jung [facility] 07-26-2022 10:00-0400 Hourly Rounding Luis Carlos Jung [facility] 07-26-2022 10:00-0400 Promise to Return Luis Carlos Jung [facility] 07-26-2022 09:15-0400 Blood Pressure Location Luis Carlos Jung [facility] 07-26-2022 09:15-0400 Body temperature 97.7 [degF] Luis Carlos Jung [facility] 07-26-2022 09:15-0400 Diastolic blood pressure 62 mm[Hg] Luis Carlos Montesinosten [facility] 07-26-2022 09:15-0400 Heart rate 70 /min Luis Carlos Jung [facility] 07-26-2022 09:15-0400 Hourly Rounding Luis Carlos Jung [facility] 07-26-2022 09:15-0400 Mean blood pressure 74 mm[Hg] Luis Carlos Montesinosten [facility] 07-26-2022 09:15-0400 Respiratory rate 18 /min Luis Carlos Jung [facility] 07-26-2022 09:15-0400 Systolic blood pressure 97 mm[Hg] Luis Carlos Jung [facility] 07-26-2022 09:00-0400 Promise to Return Luis Carlos Jung [facility] 07-26-2022 08:14-0400 Body temperature 98.06 [degF] Luis Carlos Montesinosten [facility] 07-26-2022 08:14-0400 Diastolic blood pressure 66 mm[Hg] Luis Carlos Montesinosten [facility] 07-26-2022 08:14-0400 Heart rate 81 /min Luis Carlos Jung [facility] 07-26-2022 08:14-0400 Mean blood pressure 80 mm[Hg] Luis Carlos Jung [facility] 07-26-2022 08:14-0400 Respiratory rate 18 /min Luis Carlos Jung [facility] 07-26-2022 08:14-0400 Systolic blood pressure 109 mm[Hg] Luis Carlos Jung [facility] 07-17-2022 09:07-0400 Body temperature 97.88 [degF] Ko Dumas [facility] 07-17-2022 09:07-0400 Diastolic blood pressure 74 mm[Hg] Ko Dumas [facility] 07-17-2022 09:07-0400 Heart rate 85 /min Ko Dumas [facility] 07-17-2022 09:07-0400 Respiratory rate 16 /min Ko Dumas [facility] 07-17-2022 09:07-0400 SaO2% (BldA) [Mass fraction] 100 % Ko Dumas [facility] 07-17-2022 09:07-0400 Systolic blood pressure 117 mm[Hg] Ko Dumas [facility] 06-26-2022 21:38-0400 Blood Pressure Location Luis Carlos Jung [facility] 06-26-2022 21:38-0400 Diastolic blood pressure 61 mm[Hg] Luis Carlos Jung [facility] 06-26-2022 21:38-0400 Heart rate 83 /min Luis Carlos Jung [facility] 06-26-2022 21:38-0400 Hourly Rounding Luis Carlos Jung [facility] Comment on above: Result Comment: discharged ambulatory to pov 06-26-2022 21:38-0400 Mean blood pressure 75 mm[Hg] Luis Carlos Jung [facility] 06-26-2022 21:38-0400 Respiratory rate 16 /min Luis Carlos Jung [facility] 06-26-2022 21:38-0400 Systolic blood pressure 102 mm[Hg] Luis Carlos Jung [facility] 06-26-2022 21:15-0400 Blood Pressure Location Luis Carlos Jung [facility] 06-26-2022 21:15-0400 Diastolic blood pressure 64 mm[Hg] Luis Carlos Jung [facility] 06-26-2022 21:15-0400 Heart rate 74 /min Luis Carlos Jung [facility] 06-26-2022 21:15-0400 Hourly Rounding Luis Carlos Jung [facility] 06-26-2022 21:15-0400 Mean blood pressure 78 mm[Hg] Luis Carlos Jung [facility] 06-26-2022 21:15-0400 Respiratory rate 16 /min Luis Carlos Jung [facility] 06-26-2022 21:15-0400 Systolic blood pressure 106 mm[Hg] Luis Carlos Jung [facility] 06-26-2022 21:05-0400 Body temperature 97.88 [degF] Luis Carlos Jung [facility] 06-26-2022 21:05-0400 Respiratory rate 18 /min Luis Carlos Jung [facility] 06-26-2022 21:00-0400 Hourly Rounding Luis Carlos Jung [facility] Comment on above: Result Comment: ice water given 06-19-2022 01:30-0400 Hourly Rounding Luis Carlos Jung [facility] Comment on above: Result Comment: updated on plan of care after speaking to dr jung. verb understanding and all d/c instructions provided. denies further needs/concerns. ambulates off unit without any further questions. 06-19-2022 01:00-0400 Hourly Rounding Luis Carlos Jung [facility] Comment on above: Result Comment: rests in bed on phone. d enies any needs. denies any pain at this time or any pain or cramping since arrival. call light within reach 06-19-2022 00:15-0400 Hourly Rounding Luis Carlos Jung [facility] 06-18-2022 23:54-0400 Body temperature 97.88 [degF] Luis Carlos Jung [facility] 06-18-2022 23:54-0400 Diastolic blood pressure 65 mm[Hg] Luis Carlos Jung [facility] 06-18-2022 23:54-0400 Heart rate 76 /min Luis Carlos Jung [facility] 06-18-2022 23:54-0400 Mean blood pressure 81 mm[Hg] Luis Carlos Jung [facility] 06-18-2022 23:54-0400 Respiratory rate 18 /min Luis Carlos Jung [facility] 06-18-2022 23:54-0400 Systolic blood pressure 112 mm[Hg] Luis Carlos Jung [facility] 06-18-2022 23:45-0400 Blood Pressure Location Luis Carlos Jung [facility] 05-01-2022 17:45-0400 Hourly Rounding Luis Carlos Jung [facility] Comment on above: Result Comment: reviewed disch inst and meds to take states understanding 05-01-2022 17:30-0400 Hourly Rounding Luis Carlos Jung [facility] 05-01-2022 17:23-0400 Body temperature 98.06 [degF] Luis Carlos Jung [facility] 05-01-2022 17:23-0400 Diastolic blood pressure 57 mm[Hg] Luis Carlos Jung [facility] 05-01-2022 17:23-0400 Heart rate 83 /min Luis Carlos Jung [facility] 05-01-2022 17:23-0400 Mean blood pressure 71 mm[Hg] Luis Carlos Jung [facility] 05-01-2022 17:23-0400 Respiratory rate 16 /min Luis Carlos Jung [facility] 05-01-2022 17:23-0400 Systolic blood pressure 99 mm[Hg] Luis Carlos Jung [facility] 05-01-2022 17:15-0400 Blood Pressure Location Luis Carlos Jung [facility] 05-01-2022 17:15-0400 Hourly Rounding Luis Carlos Jung [facility] 04-02-2022 13:30-0400 Hourly Rounding Luis Carlos Jung [facility] Comment on above: Result Comment: pt given discharge instr uctions at this time to follow up with fabiana sunday or states understanding to call office tomorrow for appointment 04-02-2022 12:30-0400 Hourly Rounding Luis Carlos Jung [facility] Comment on above: Result Comment: pt returns to bed from r estroom at this time denies discomfort at this time 04-02-2022 11:30-0400 Hourly Rounding Luis Carlos Jung [facility] Comment on above: Result Comment: pt sitting in bed at thi s time denies needs or discomfort 04-02-2022 06:28-0400 Body temperature 99.68 [degF] Luis Carlos Jung [facility] 04-02-2022 06:28-0400 Diastolic blood pressure 68 mm[Hg] Luis Carlos Jung [facility] 04-02-2022 06:28-0400 Heart rate 89 /min Luis Carlos Jung [facility] 04-02-2022 06:28-0400 Heart rate 86 /min Luis Carlos Jung [facility] 04-02-2022 06:28-0400 Mean blood pressure 83 mm[Hg] Luis Carlos Jung [facility] 04-02-2022 06:28-0400 Respiratory rate 20 /min Luis Carlos Jung [facility] 04-02-2022 06:28-0400 SaO2% (BldA) [Mass fraction] 98 % Luis Carlos Jung [facility] 04-02-2022 06:28-0400 Systolic blood pressure 114 mm[Hg] Luis Carlos Jung [facility] 03-23-2022 21:08-0400 Hourly Rounding Luis Carlos Jung [facility] Comment on above: Result Comment: Patient ambulatory off u nit. No signs or symptoms of distress noted. 03-23-2022 20:35-0400 Hourly Rounding Luis Carlos Jung [facility] Comment on above: Result Comment: Patient updated on plan of care. Verbalizes understanding. Call light in reach. 03-23-2022 19:49-0400 Blood Pressure Location Luis Carlos Jung [facility] 03-23-2022 19:49-0400 Body temperature 98.78 [degF] Luis Carlos Jung [facility] 03-23-2022 19:49-0400 Diastolic blood pressure 66 mm[Hg] Luis Carlos Jung [facility] 03-23-2022 19:49-0400 Heart rate 69 /min Luis Carlos Jung [facility] 03-23-2022 19:49-0400 Hourly Rounding Luis Carlos Jung [facility] Comment on above: Result Comment: Patient arrives on unit. 03-23-2022 19:49-0400 Mean blood pressure 79 mm[Hg] Luis Carlos Jung [facility] 03-23-2022 19:49-0400 Respiratory rate 16 /min Luis Carlos Jung [facility] 03-23-2022 19:49-0400 Systolic blood pressure 106 mm[Hg] Luis Carlos Jung [facility] 10-14-2020 13:15-0500 Pulse (Heart Rate) 74 /min [facility] 10-14-2020 13:15-0500 Pulse Oximetry 98 % [facility] 10-14-2020 13:15-0500 Respiratory Rate 16 /min [facility] 10-14-2020 13:00-0500 BP Diastolic 74 mm[Hg] [facility] 10-14-2020 13:00-0500 BP Systolic 123 mm[Hg] [facility] 10-14-2020 10:13-0500 BMI (Body Mass Index) 34.33 kg/m2 [facility] 10-14-2020 10:13-0500 Body Temperature 97.81 [degF] [facility] 10-14-2020 10:13-0500 Body weight 90.72 kg [facility] 10-14-2020 10:13-0500 Height 162.6 cm [facility] 08-09-2020 20:33-0400 BP Diastolic 81 mm[Hg] [facility] [place] 08-09-2020 20:33-0400 BP Systolic 122 mm[Hg] [facility] [place] 08-09-2020 20:33-0400 Pulse (Heart Rate) 78 /min [facility] [place] 08-09-2020 20:33-0400 Respiratory Rate 16 /min [facility] [place] 08-09-2020 19:03-0400 BMI (Body Mass Index) 39.48 kg/m2 [facility] [place] 08-09-2020 19:03-0400 Body Temperature 98.29 [degF] [facility] [place] 08-09-2020 19:03-0400 Body weight 104.33 kg [facility] [place] 08-09-2020 19:03-0400 Height 162.6 cm [facility] [place] 08-09-2020 19:03-0400 Pulse Oximetry 98 % [facility] [place] Encounters Encounter Date Encounter Type Care Provider Facility Start: 11-12-2024 End: 11-13-2024 Clinisync Result Encounter Rashaun Thompsono DO Work Phone: [facility] Unsolicited Start: 11-12-2024 End: 11-13-2024 Clinisync Result Encounter Rashaun Thompsono DO Work Phone: [facility] External Department Unsolicited Start: 11-06-2024 End: 11-06-2024 Patient encounter procedure Rashaun Thompsono DO Work Phone: [facility] Comment on above: Pre-op examination; Menorrhagia with regular cycle; Abnormal uterine bleeding; Pelvic pain in female Start: 11-06-2024 End: 11-06-2024 Preprocedural examination done Rashaun Perry DO Work Phone: [facility] Start: 11-06-2024 End: 11-06-2024 ambulatory RASHAUN [...] Start: 03-11-2024 End: 03-12-2024 ambulatory ZORAN MYRICK Facility:[facility] Start: 02-08-2024 End: 02-08-2024 ambulatory [facility] Work Phone: [facility] Work Phone: Start: 02-08-2024 End: 02-08-2024 Departed Referred [facility] Work Phone: [facility] Start: 01-22-2024 End: 01-22-2024 ambulatory RASHAUN [...] End: 11-30-2023 Pre-admission assessment Rashaun R PERRY [facility] Start: 11-04-2023 End: 11-04-2023 ambulatory Rashaun R PERRY Facility:[facility] Start: 11-04-2023 End: 11-04-2023 OB Triage Rashaun R PERRY [facility] Start: 08-23-2023 End: 08-23-2023 Lab Drop off ZORAN MYRICK [facility] Start: 08-23-2023 End: 08-24-2023 ambulatory ZORAN MYRICK Facility:[facility] Start: 08-19-2023 End: 09-14-2023 Pre-admission assessment Julia Haywood [facility] Start: 08-18-2023 End: 08-18-2023 ambulatory DO Julia Haywood Facility:[facility] Start: 08-18-2023 End: 08-18-2023 OB Triage Julia Haywood [facility] Start: 07-25-2023 End: 07-25-2023 Emergency department patient visit Kristian Guillermo Facility:[facility] Start: 07-25-2023 End: 07-25-2023 Emergency department patient visit Kristian Guillermo [facility] Start: 06-28-2023 End: 06-29-2023 ambulatory Roverto V. Spasic Facility:[facility] Start: 06-28-2023 End: 06-28-2023 Patient encounter procedure Roverto V. Spasic [facility] Start: 06-14-2023 End: 06-14-2023 Emergency department patient visit Kristian Guillermo Facility:[facility] Start: 06-14-2023 End: 06-14-2023 Emergency department patient visit Kristian Guillermo [facility] Start: 06-12-2023 End: 06-13-2023 ambulatory Luis Carlos Jung Facility:[facility] Start: 06-12-2023 End: 06-12-2023 Patient encounter procedure Luis Carlos Jung [facility] Start: 05-21-2023 End: 05-22-2023 Emergency department patient visit Gopi Rodriguez Facility:[facility] Start: 05-21-2023 End: 05-21-2023 Emergency department patient visit Gopi Rodriguez [facility] Start: 04-30-2023 End: 05-01-2023 ambulatory Luis Carlos Jung Facility:[facility] Start: 04-30-2023 End: 04-30-2023 Lab Drop off Luis Carlos Jung [facility] Start: 04-30-2023 End: 05-01-2023 ambulatory Luis Carlos Jung Facility:[facility] Start: 04-30-2023 End: 04-30-2023 Patient encounter procedure Luis Carlos Jung [facility] Start: 04-26-2023 End: 04-26-2023 Emergency department patient visit Laura Noel Facility:[facility] Start: 04-26-2023 End: 04-26-2023 Emergency department patient visit [facility]elena Noel [facility] Start: 01-31-2023 End: 01-31-2023 Emergency department patient visit Kristian Guillermo [facility] Start: 09-22-2022 End: 09-22-2022 OB Triage Luis Carlos Jung [facility] Start: 09-20-2022 End: 09-20-2022 OB Triage Luis Carlos Jung [facility] Start: 09-19-2022 End: 09-19-2022 OB Triage Jj MOOREJAMESBryan [facility] Start: 09-14-2022 End: 09-14-2022 OB Triage Luis Carlos Jung [facility] Start: 09-12-2022 End: 09-12-2022 OB Triage Luis Carlos Jung [facility] Start: 09-08-2022 End: 09-08-2022 OB Triage Luis Carlos Jung [facility] Start: 09-05-2022 End: 09-05-2022 Emergency department patient visit Gopi Rodriguez [facility] Start: 09-05-2022 End: 12-05-2022 Patient encounter procedure SELF REFERRAL [facility] Start: 09-04-2022 End: 09-04-2022 Lab Drop off Luis Carlos Jung [facility] Start: 08-30-2022 End: 08-31-2022 OB Triage Luis Carlos Jung [facility] Start: 08-22-2022 End: 08-22-2022 OB Triage Luis Carlos Jung [facility] Start: 08-18-2022 End: 08-18-2022 OB Triage Luis Carlos Byrd Fabiana [facility] Start: 08-13-2022 End: 08-13-2022 OB Triage Luis Carlos Byrd Fabiana [facility] Start: 07-26-2022 End: 07-26-2022 OB Triage Luis Carlos Jung [facility] Start: 07-17-2022 End: 07-17-2022 Emergency department patient visit Ko Dumas [facility] Start: 06-28-2022 End: 06-28-2022 Patient encounter procedure Luis Carlos Jung [facility] Start: 06-26-2022 End: 06-26-2022 OB Triage Luis Carlos Jung [facility] Start: 06-20-2022 End: 07-15-2022 Pre-admission assessment Luis Carlos Rochelle Fabiana [facility] Start: 06-18-2022 End: 06-19-2022 OB Triage Luis Carlos Byrd Fabiana [facility] Start: 05-02-2022 End: 06-15-2022 Pre-admission assessment THANG MILLAN [facility] Start: 05-01-2022 End: 05-01-2022 OB Triage Luis Carlos Byrd Fabiana [facility] Start: 04-02-2022 End: 04-02-2022 OB Triage Luis Carlos Jung [facility] Start: 03-23-2022 End: 03-23-2022 OB Triage Luis Carlos Rochelle Jung [facility] Start: 03-16-2022 End: 03-16-2022 Patient encounter procedure Luis Carlos Jung [facility] Start: 02-15-2022 End: 02-15-2022 Lab Drop off Luis Carlos Montesinosten [facility] Start: 02-23-2021 End: 02-23-2021 Patient encounter procedure Martha Webb MD Work Phone: [facility] Start: 02-23-2021 Results Only Martha Webb MD Work Phone: Gastroenterology Start: 10-14-2020 End: 10-14-2020 Emergency department patient visit PHYSICIAN RONN [facility] Start: 10-14-2020 End: 10-14-2020 Emergency department patient visit Regine Chow Work Phone: [facility] Emergency Department Comment on above: Vertigo (Primary Dx) Start: 08-09-2020 End: 08-09-2020 Emergency department patient visit BAKARI BENITESSAIN [facility] Start: 08-09-2020 End: 08-09-2020 Emergency department patient visit Bakari Benitessain Work Phone: [facility] Comment on above: Contusion of right k nee, initial encounter (Primary Dx); Contusion of multiple sites of right shoulder and upper arm, initial encounter Start: 07-23-2017 End: 07-23-2017 Emergency department patient visit NKECHI TORRES [facility] Guerra Procedures Date Procedure Procedure Detail Performing Clinician Start: 11-12-2024 XR CHEST 2V Rashaun Perry DO Work Phone: Start: 10-02-2024 ALL CBC WITH AUTO DIFF [...] 1998 panel - Serum or Plasma Susan Shirleyd Work Phone: Start: 10-14-2020 Complete blood count with white cell differential, automated Susan Charltoncia Madhavlod Work Phone: Start: 10-14-2020 Complete blood count with white cell differential, manual Susan Elkinsa Madhavlod Work Phone: Start: 10-14-2020 COVID-19/INFLUENZA A,B MOLECULAR Susan Elkinsa Madhavlod Work Phone: Start: 10-14-2020 Choriogonadotropin ( test) [...] Urine test visual color cmprsn meths Bakari Christopher Valente Work Phone: Incision of gallbladder Adán Jung Plan of Treatment Date Care Activity Detail Author Start: 05-12-2028 Tetanus vaccination Tetanus: Every [address] [facility] Start: 04-30-2028 Screening for malign ant neoplasm of cervix [facility] Start: 10-27-2024 End: 10-27-2024 Patient encounter procedure 10/27/2024 10:30 AM EST Procedure Visit [facility] [address] [address] Rashaun Amador, DO [address] [place], [place] [id number] [facility] Start: 09-09-2024 End: 09-09-2025 aPTT in Blood by Coagulation assay APTT Lab Routine Menorrhagia with regular cycle Expected: 09/09/2024 (Approximate), Expires: 09/09/2025 [facility] Comment on above: Expected: 09/09/2024 (Approximate), Expires: 09/09/2025 Start: 09-09-2024 End: 09-09-2025 US for US PELVIS-TRANSVAG IF INDICATED Imaging Routine Menorrhagia with regular cycle Expected: 09/09/2024 (Approximate), Expires: 09/09/2025 [facility] Comment on above: Expected: 09/09/2024 (Approximate), Expires: 09/09/2025 Start: 06-15-2024 Influenza vaccination Influenza Vacc ine (#1) [facility] Start: 01-22-2024 End: 01-22-2024 Patient encounter procedure 01/22/2024 8:40 AM EDT Consult [facility] [address] [address] Rashaun Amador, DO [address] [place], [place] [id number] [facility] Start: 12-04-2023 End: 12-04-2023 Patient encounter procedure 12/04/2023 9:00 AM EST Routine [facility] [address] [place] [id number] Rashaun Amador DO [address] [place] [address] [facility] Start: 11-27-2023 End: 11-27-2024 [...] EST Ancillary Procedure [facility] [address] [address] [facility] Start: 06-15-2021 Influenza vaccination INFLUENZ A (Season Ended) [facility] Start: 06-15-2020 Influenza vaccination Flu vaccine (# 1) [place], [place] Start: 2014 PAP TESTING PAP TESTING [facility] Start: 2014 Screening for malign ant neoplasm of cervix Cervical cancer screen [place], [place] Start: 2012 DTaP/Tdap/Td vaccine (1 - Tdap) DTaP/Tdap/Td vaccine (1 - Tdap) [place] Start: 2012 Urine microalbumin profile DTAP,TDAP,TD (1 - Tdap) [facility] Start: 2011 Hepatitis C antibody , confirmatory test Hepatitis C Screening [facility] Start: 2011 HEPATITIS C SCREENING HEPATITIS C SC YUE [facility] Start: 2011 HIV SCREENING HIV SCREENING [facility] Start: 2008 HIV screening Verena Valdes [place], [place] Start: 2005 Adolescent depressio n screening assessment [facility] Start: 2004 HPV vaccine (1 - 2-d ose series) HPV vaccine (1 - 2-dose series) [place], [place] Start: 1996 History and physical examination, annual for health maintenance Wellness Visit [facility] Start: 1994 Varicella vaccine (1 of 2 - 2-dose childhood series) Varicella vaccine (1 of 2 - 2-dose childhood series) [place] Start: 1993 Screening for malign ant neoplasm of cervix Pap Smear [facility] CBC W Auto Different ial panel - Blood CBC and differential Lab Routine Menorrhagia with regular cycle Ordered: 09/09/2024 [facility] Work Phone: Comment on above: Ordered: 09/09/2024 hCG, quantitative, hCG, quantitative, Lab Routine Menorrhagia with regular cycle Ordered: 09/09/2024 [facility] Comment on above: Ordered: 09/09/2024 Hemoglobin A1c/Hemoglobin.total in Blood Hemoglobin A1c Lab Routine Menorrhagia with regular cycle Ordered: 09/09/2024 [facility] Comment on above: Ordered: 09/09/2024 Prothrombin time (PT ) in Blood by Coagulation assay Protime-INR Lab Routine Menorrhagia with regular cycle Ordered: 09/09/2024 [facility] Comment on above: Ordered: 09/09/2024 PT ED PATIENT INFORMATION PT ED PATIENT INFORMATION Other 02/23/2021 [facility] Thyrotropin [Units/volume] in Serum or Plasma TSH Lab Routine Menorrhagia with regular cycle Ordered: 09/09/2024 [facility] Comment on above: Ordered: 09/09/2024 Thyroxine (T4) free [Mass/volume] in Serum or Plasma T4, free Lab Routine Menorrhagia with regular cycle Ordered: 09/09/2024 [facility] Comment on above: Or[facility]: [facility] Immunization Date Immunization Notes Care Provider Lennox ramirez 08-18-2023 influenza, seasonal, injectable Julia Haywood [facility] 08-18-2023 influenza virus vaccine, unspecified formulation Rashaun Perry DO Work Phone: [facility] 09-25-2022 influenza, seasonal, injectable SELF REFERRAL [facility] Comment on above: Early/Late Reason: E isaac/Late Reason: Nursing Judgment 01-28-2021 COVID-19, mRNA, LNP- S, PF, 30 mcg/0.3 mL dose; Translations: [Pfizer-BioNTech COVID-19 Vaccine] Luis Carlos Fabiana [facility] Comment on above: Reason for Medicatio n: Prophylaxis Reason for Medicatio n: Prophylaxis 12-31-2020 COVID-19, mRNA, LNP- S, PF, 30 mcg/0.3 mL dose; Translations: [Pfizer-BioNTech COVID-19 Vaccine] Luis Carlos Fabiana [facility] Comment on above: Reason for Medicatio n: Prophylaxis Reason for Medicatio n: Prophylaxis 05-12-2018 tetanus toxoid, reduced diphtheria toxoid, and acellular pertussis vaccine, adsorbed; Translations: [Adacel (Tdap)] Luis Carlos Fabiana [facility] Payers Date Payer Category Payer Self-pay [id number] 2022 Medicaid [employer] [place] [id number] 2022-Present [address] [id number] [id number] 2022 Medicaid (Managed Care) [facility] MEDICAID [id number] 2019 Unknown [id number] 2019 Unknown [id number]. [id number] 1993 Unknown [id number] 2.16.840.1.779044.3.579.2. 173 1993 Unknown [id number] 2.16.840.1.116504.3.579.2. 903 1993 Unknown [id number] 2.16.840.1.781528.3.579.2. 72 1993 Unknown [id number] 2.16.840.1.198379.3.579.2. 727 1993 Unknown [id number] 2.16.840.1.156401.3.579.2. 72 1993 Unknown [id number] 2.16.840.1.687112.3.579.2. 727 1993 Unknown [id number] 2.16.840.1.046099.3.579.2. 727 1993 Unknown [id number] 2.16.840.1.233172.3.579.2. 727 1993 Unknown [id number] 2.16.840.1.672030.3.579.2. 727 1993 Unknown [id number] 2.16.840.1.740298.3.579.2. 727 1993 Unknown [id number] 2.16.840.1.972571.3.579.2. 727 1993 Unknown [id number] 2.16.840.1.285076.3.579.2. 727 1993 Unknown [id number] 2.16.840.1.245208.3.579.2. 727 1993 Unknown [id number] 2.16.840.1.368922.3.579.2. 727 1993 Unknown [id number] 2.16.840.1.143196.3.579.2. 727 1993 Unknown [id number] 2.16.840.1.234305.3.579.2. 1259 1993 Unknown [id number] 2.16.840.1.484904.3.579.2. 1259 1993 Unknown [id number] 2.16.840.1.108503.3.579.2. 1259 1993 Unknown [id number] 2.16.840.1.386410.3.579.2. 1259 1993 Unknown [id number] 2.16.840.1.117309.3.579.2. 1259 Unknown [id number] 2.16.840.1.670774.3.579.2. 531 Unknown [id number] 2.16.840.1.253703.3.579.2. 531 Social History Date Type Detail Facility Start: 08-09-2020 End: 10-14-2020 Tobacco smoking status NHIS Current every day smoker [place] Start: 08-09-2020 End: 10-14-2020 Tobacco use and exposure Never used [place] Start: 10-14-2020 Alcohol intake Ex-drinker (finding) [facility] Start: 1993 Sex Assigned At Not on file [place] Exposure to SARS-CoV -2 (event) Not sure [place] Start: 08-09-2020 Cigarettes smoked current (pack per day) - Reported [place] Start: 08-09-2020 Alcohol intake Lifetime non-d val (finding) [place] Start: 08-09-2020 History SDOH Alcohol Frequency 1 [place] Start: 07-06-2021 End: 08-18-2022 Tobacco smoking status Light tobacco smoker (finding) [facility] Sex Assigned At Female [facility] Tobacco [facility] Comment on above: current current denies Start: 06-28-2023 Tobacco smoking status Ex-smoker (fi nding) [facility] Comment on above: current Tobacco smoking status Never [facility] Comment on above: current Tobacco smoking status No Smokin g Status Entered [facility] Tobacco smoking stat [facility] Tobacco smoking consumption unknown [facility] Start: 04-02-2023 [facility] Start: 1995 Sex Assigned At Female [facility] Start: 07-03-2023 Gender identity Identifies as female gender (finding) [facility] Start: 07-03-2023 Sexual orientation Heterosexual (fin ding) [facility] Start: 04-10-2020 Tobacco smoking stat us [facility] Smoker (finding) [facility] Goals Date Patient Goal Desired Activity /State Personal health goal Functional Status Date Assessment Result Facility 11-04-2023 Functional Status N/A [facility] 08-18-2023 Functional Status N/A [facility] 07-25-2023 Functional Status N/A [facility] 06-28-2023 Functional Status N/A [facility] 06-14-2023 Functional Status N/A [facility] 05-21-2023 Functional Status N/A [facility] 04-26-2023 Functional Status N/A [facility] 01-31-2023 Functional Status N/A [facility] 09-22-2022 Functional Status N/A [facility] 09-20-2022 Functional Status N/A [facility] 09-19-2022 Functional Status N/A [facility] 09-14-2022 Functional Status N/A [facility] 09-12-2022 Functional Status N/A [facility] 09-08-2022 Functional Status N/A [facility] 09-05-2022 Functional Status Yes [facility] 08-30-2022 Functional Status N/A [facility] 08-22-2022 Functional Status N/A [facility] 08-18-2022 Functional Status N/A [facility] 08-13-2022 Functional Status N/A [facility] 07-26-2022 Functional Status N/A [facility] 07-17-2022 Functional Status N/A [facility] 06-26-2022 Functional Status N/A [facility] 06-18-2022 Functional Status N/A [facility] 05-01-2022 Functional Status N/A [facility] 04-02-2022 Functional Status N/A [facility] Clinical Notes 03-10-2021 to 11-06-2024 Jo Kash - 11/06/2024 9:30 AM Alessandro Suggs LPN - 09/09/2024 8:50 AM Alessandro Suggs, JAQUELINE - 11/27/2023 8:30 AM Alessandro Suggs, JAQUELINE - 11/20/2023 11:10 AM EST Note Date & Type Note Facility 11-06-2024 History of Present illness Narrative Reason for Appointment: Patient ID: Susan Bro is a 29 y.o. female who presents for EMBX and Pre-op Visit Patient presents today for Pre Op/Endometrial Biopsy appointment. Patient is scheduled to undergo Endometrial Ablation with Jacey on 11/21/[address] Amador at [facility]. MEDICATIONS Current Outpatient Medications Medication Instructions citalopram [...] Bilateral 02/08/[address] Amador at [facility] REVIEW OF SYSTEMS Review of Systems: [...] nursing note reviewed. Exam conducted with a patient clerical assistant present. Vitals: Estimated body mass index is [...] reviewed, and patient is to proceed to [facility] OR. Follow Up: Patient is to follow up between 1-2 weeks post op to assess proper healing and recovery from procedure. Follow Up: Patient is to follow up between 1-2 weeks post op to assess proper healing and recovery from procedure. Documented by Charlene Duarte LPN on behalf of: Rashaun Amador DO documented in this encounter [facility] 09-09-2024 History of Present illness Narrative Reason [...] nursing note reviewed. Exam conducted with a patient clerical assistant present. Vitals: Estimated body mass index is [...] Rashaun Amador DO documented in this encounter [facility] 11-27-2023 History of Present illness Narrative Reason [...] nursing note reviewed. Exam conducted with a patient clerical assistant present. Vitals: There is no height or [...] Rashaun Amador DO documented in this encounter [facility] 11-20-2023 History of Present illness Narrative [...] nursing note reviewed. Exam conducted with a patient clerical assistant present. Vitals: There is no height or [...] Rashaun Amador DO documented in this encounter [facility] 11-04-2023 Evaluation + Plan note Diagnostic Tests PendingUrine Culture 11/04/23 [facility] 11-04-2023 Note The following Patien t Education Materials have been given to the patient: EducationMaterial [facility] 11-04-2023 Hospital Discharge instructions Follow Up Care 11/04/2023 07:55:34 With:Rashaun AMADOR Address: [address] , [place] [address] Business (1) When:11/06/2023 Comments:Call for any problems.Appointment has already been scheduledCall physician if symptoms worsenPlease call if you need to rescheduleReturn for contractions closer, longer, harderReturn for decreased movementReturn if ruptured membranes or vaginal bleeding [facility] 08-23-2023 Evaluation + Plan note Diagnostic Tests PendingT3 Total 08/23/23 [facility] 08-18-2023 Note The following Patien t Education Materials have been given to the patient: EducationMaterial [facility] 08-18-2023 Hospital Discharge instructions Patient Education 08/18/2023 08:14:46 Second Trimester of , Vmzb-eu-Mrkt Second Trimester of The second trimester of [...] Follow these instructions at home: Medicines Take pget-lib-bkppsqm and prescription medicines only as told by [...] a counselor. Where to find more information [place] Association: americanpregnancy.org [place] [employer]st[employer]ians [employer] Gynecologists: www.acog.org Office [...] provider. Document Revised: 03/09/2021 Document Reviewed: 01/13/2021 Rew[employer] Patient Education 2022 Jip[employer]. [facility] 07-25-2023 Evaluation + Plan note Extrac [...] Diagnostic Tests Pending * Urine Culture 07/25/23 [facility]10-11-2023 Hospital Discharge instructions Patient Education 07/25/2023 [...] to keep your urine pale yellow. Take wlvd-qtq-zoooedw and prescription medicines only as told by [...] Document Reviewed: 06/14/2021 Elsevier Patient Education 2022 [employer] Follow Up Care 07/25/2023 08:14:26 With:Luis Carlos Jung Address: [address], [address] [address] Business (1) When:07/28/2023 09:56:27 [facility]09-14-2023 Evaluation + Plan note Diagnostic Tests Pending * Urine Culture 06/28/23 [facility]09-14-2023 Hospital Discharge instructions Patient Education 06/28/2023 11:39:14 Urinary Tract Infection, Adult, Bujz-yx-Byfs Urinary Tract Infection, Adult A urinary tract [...] Follow these instructions at home: Medicines Take immj-zpa-mifewrh and prescription medicines only as told by [...] provider. Document Revised: 05/13/2021 Document Reviewed: 05/13/2021 [employer] Patient Education 2022 [employer]ipio. 06/28/2023 11:39:14 Urinary Tract Infection, Adult, Omik-bf-Jrit Urinary Tract Infection, Adult A urinary tract [...] Follow these instructions at home: Medicines Take oevd-iri-wwnlxoh and prescription medicines only as told by [...] provider. Document Revised: 05/13/2021 Document Reviewed: 05/13/2021 [employer] Patient Education 2022 [employer]ipio. Follow Up Care 06/28/2023 10:22:58 With:Fabiana MARION, Luis Carlos Byrd, ORS Address: [address] [place] [address] When: Unknown [facility] 08-31-2023 Evaluation + Plan noteExtracted from: Title:ED Note Author:Jos Ugalde PA-C te:06/14/23 1. Abdominal pain (R10.9: Un specified abdominal pain) Orders: ABO/Rh Automated Diff Basic Metabolic Panel Beta hCG Quantitative CBC w/ Auto Diff eGFR Extra Blue Tube Extra SST Tube Hepatic Function Panel Lipase Level UA With Cult Reflex US 1st Trimester [facility]08-08-2023 Hospital Discharge instructions Patient Education 05/21/2023 23:23:44 Nonspecific Chest Pain, Adult, Xmbs-td-Kidv Nonspecific Chest Pain Chest pain can be [...] Follow these instructions at home: Medicines Take mngy-mun-iqrfjuw and prescription medicines only as told by [...] a heart-healthy diet. A diet and child care development specialist (dietitian) can help you to learn [...] provider. Document Revised: 12/15/2021 Document Reviewed: 12/15/2021 [employer] Patient Education 2022 [employer] 05/21/2023 23:23:44 Nausea and Vomiting, Adult, Dxxf-fz-Zxbv Nausea and Vomiting, Adult Nausea is feeling [...] fruit juice). ?Low-calorie sports drinks. Eat bland, eajt-si-egbgsp foods in small amounts as you are able, such as: ?Bananas. ?Applesauce. ?Rice. ?Low-fat (lean) meats. ?Michie. ?Crackers. Avoid drinking fluids that have a lot of sugar or caffeine in them. This includes energy drinks, sports drinks, and soda. Avoid alcohol. Avoid spicy or fatty foods. General instructions Take ahpb-iqv-bpveqyc and prescription medicines only as told by your doctor. Drink enough fluid to keep your pee (urine) pale yellow. Wash your hands often with soap and water for at least 20 seconds. If you cannot use soap and water, use hand sales broker. Make sure that everyone in your home [...] your doctor about eating and drinking. Take ihxj-cdu-hygtpmk and prescription medicines only as told by your doctor. Contact your doctor if your symptoms get worse or you have new symptoms. Keep all follow-up visits. This information is not intended to replace advice given to you by your health care provider. Make sure you discuss any questions you have with your health care provider. Document Revised: 04/07/2022 Document Reviewed: 04/07/2022 [employer] Patient Education 2022 Jipio. 05/21/2023 23:23:44 Abdominal Pain During , Vwgk-lk-Bcmf Abdominal Pain During Belly (abdominal) pain is [...] keep your pee (urine) pale yellow. Take gldl-yko-ljrbyja and prescription medicines only as told by [...] provider. Document Revised: 06/14/2021 Document Reviewed: 06/14/2021 [employer] Patient Education 2022 [employer]ipio. Follow Up Care 05/21/2023 20:38:52 With:Luis Carlos Jung Address: [address] [place], [place] [address], [place] [id number] Business (1) When:05/24/2023 Comments:Take the Pepcid once daily until you have completed the course. You can use the Zofran every 6 hours as needed for nausea and vomiting. Please follow-up with your primary care doctor next 2 to 3 days. Please return to the ED for any new or worsening symptoms. [facility]08-07-2023 Evaluation + Plan noteExtracted from: Title:ED [...] day(s), # 15 cap(s), Refills(s) 0, Pharmacy: [facility], 162.6, cm, 05/21/23 20:50:00 EDT, Height/Length Dosing, 75.3, kg, 05/21/23 20:50:00 EDT, Weight Dosing famotidine, 20 mg = 2 mL, Soln-IV, IV Push, Once, Stop date 05/21/23 21:00:00 EDT, STAT, Start date 05/21/23 21:00:00 EDT, 05/21/23 21:00:00 EDT famotidine, 20 mg = 1 tab(s), Oral, Daily, # 14 tab(s), Refills(s) 0, Pharmacy: [facility], 162.6, cm, 05/21/23 20:50:00 EDT, Height/Length Dosing, 75.3, kg, 05/21/23 20:50:00 EDT, Weight Dosing ondansetron, 4 mg = 2 mL, Injection, IV Push, Once, Stop date 05/21/23 21:00:00 EDT, STAT, Start date 05/21/23 21:00:00 EDT, 05/21/23 21:00:00 EDT ondansetron, 4 mg = 1 tab(s), Oral, q8hr, # 12 tab(s), Refills(s) 0, Pharmacy: [facility], 162.6, cm, 05/21/23 20:50:00 EDT, [...] UA With Cult Reflex US 1st Trimester [facility]07-17-2023 Evaluation + Plan note Diagnostic Tests Pending * PAP 1993052004/30/23 * Urine Culture 04/30/23 [facility]07-17-2023 Evaluation + Plan note Diagnostic Tests Pending * RPR with Conf Rfx 04/30/23 * HIV Screen 4th Generation wRfx 04/30/23 * Rubella Antibody IgG 04/30/23 * Hepatitis B Surface Antigen 04/30/23 [facility]07-13-2023 Evaluation + Plan noteExtracted from: Title:ED Note Author:Jos Ugalde PA-C te:04/26/23 Abdominal pain (R10.9: Unspe cified abdominal pain) (Z34.90: Encounter for supervision of normal , unspecified, unspecified trimester) Orders: Beta hCG Quantitative Extra Lav Tube Extra SST Tube US 1st Trimester US Transvaginal [facility]07-13-2023 Hospital Discharge instructions Patient Education 04/26/2023 [...] to keep your urine pale yellow. Take dwis-xbp-xfecsuv and prescription medicines only as told by [...] provider. Document Revised: 06/14/2021 Document Reviewed: 06/14/2021 [employer] Return Patient Education 2022 Jipio. Follow Up Care 04/26/2023 08:52:22 With:Luis Carlos Jung Address: [address], [facility] [address] [place] [address] Business (1) When:04/29/2023 10:58:02 [facility]04-19-2023 Evaluation + Plan noteExtracted from: Title:ED [...] Head eGFR Oxygen Therapy PT & PTT [facility]04-19-2023 Hospital Discharge instructions Patient Education 01/31/2023 [...] Follow these instructions at home: Medicines Take uvgm-jis-ztxcnmb and prescription medicines only as told by your health care provider. Ask your health care provider if the medicine prescribed to you: ?Requires you to avoid driving or using heavy machinery. ?Can cause constipation. You may need to take these actions to prevent or treat constipation: ?Drink enough fluid to keep your urine pale yellow. ?Take gcon-trw-ttcbbtu or prescription medicines. ?Eat foods that are [...] provider. Document Revised: 01/23/2020 Document Reviewed: 11/13/2019 [employer] Patient Education 2022 Jipio. Follow Up Care 01/31/2023 09:42:02 With:THANG MILLAN Address: [address] [place], [place] [id number] [facility] (1) When:02/03/2023 11:57:07 Comments:Call the [...] fever, or any new or worsening symptoms. [facility]12-09-2022 Hospital Discharge instructions Follow Up Care 09/22/2022 15:11:14 With:Luis Carlos Montesinosten Address: [address], [facility] [address] [place] [address]- Business (1) When:09/24/2022 20:30:00 Comments:Appointment has already been scheduledCall for any problems.Call for fever > 100.5 FCall for severe abdominal painCall physician for heavy vaginal bleedingCall physician if symptoms worsenReturn for contractions closer, longer, harderReturn for decreased movementReturn if ruptured membranes or vaginal bleedingCall at 7:30 pm Sunday to confirm induction at 8:30 [facility]12-06-2022 Hospital Discharge instructions Follow Up Care 09/19/2022 01:24:08 With:Luis Carlos Fabiana Address: [address], [facility] [address] [place] [address]- Business (1) When:09/20/2022 Comments:Appointment has already been scheduledCall Dr if fever>100.5 F, heavy bleedingCall for any problems.Call for severe abdominal painCall physician for heavy vaginal bleedingCall physician if symptoms worsenReturn for contractions closer, longer, harderPlease call if you need to rescheduleReturn for decreased movementReturn if ruptured membranes or vaginal bleeding [facility]12-01-2022 Hospital Discharge instructions Patient Education 09/14/2022 11:56:10 Sinus Headache, Rpdn-tq-Ekpt Sinus Headache A sinus headache happens when [...] on the bottle or box. Medicines Take pzso-tzg-dovemxu and prescription medicines only as told by [...] face, forehead, ears, or upper teeth. Take tgdk-pfg-jjzpobm and prescription medicines only as told by your doctor. If told, apply a warm, moist washcloth to your face. This can help to lessen pain. This information is not intended to replace advice given to you by your health care provider. Make sure you discuss any questions you have with your health care provider. Document Released: 01/31/2012 Document Revised: 09/13/2018 Document Reviewed: 07/12/2018 Rewarding Return Patient Education 2020 [employer] Follow Up Care 09/14/2022 09:13:06 With:Luis Carlos Jung Address: [address] [place], [place] [address], [address] [address] [facility] (1) When:09/20/2022 Comments:Return if ruptured membranes or vaginal bleedingReturn for decreased movementReturn for contractions closer, longer, harderCall physician if symptoms worsenCall for severe abdominal painCall for fever > 100.5 F Drink 8-10 glasses of water/day Use SUDAFED, TYLENOL AND BENADRYL as previouslydirected by Dr Fabiana Longoria [facility]11-29-2022 Hospital Discharge instructions Patient Education 09/12/2022 20:39:28 Third Trimester of , Eoow-zz-Pxey Third Trimester of The third trimester is from week 28 through week 40 (months 7 through 9). This trimester is when your unborn baby (fetus) is growing very fast. At the end of the ninth month, the unborn baby is about20 inches in length. It weighs about 6 10 pounds. Follow these instructions at home: Medicines Take gdnn-ihh-exeleyo and prescription medicines only as told by [...] 12/26/2010 Document Revised: 01/22/2020 Document Reviewed: 11/06/2017 [employer] Return Patient Education 2020 [employer]ipio. Follow Up Care 09/12/2022 19:44:10 With:Luis Carlos Jung [facility] [address] [facility] [address] [facility] (1) When:09/20/2022 Comments:Appointment has already been scheduledCall Dr if fever>100.5 F, heavy bleedingCall for any problems.Call for severe abdominal painCall physician for heavy vaginal bleedingCall physician if symptoms worsenPlease call if you need to rescheduleReturn for contractions closer, longer, harderReturn for decreased movementReturn if ruptured membranes or vaginal bleeding [facility]11-25-2022 Hospital Discharge instructions Follow Up Care 09/08/2022 08:14:23 With:Luis Carlos Jung Address: [address], [facility] [address] [place] [address]- [facility] (1) When:09/11/2022 Comments:Return for contractions closer, longer, harderReturn for decreased movementReturn if rupturedmembranes or vaginal bleeding [facility]11-23-2022 Hospital Discharge instructions Patient Education 09/05/2022 [...] the coronavirus come from? In September 2019, [place] told the World Health Organization (WHO) of several cases of lung disease (human respiratory illness). These cases were linked to an open seafood and livestock market in the [facility]. The link to the seafood and [...] and virus naming World Health Organization (WHO): www.who.int/emergencies/diseases/xsyca-kxfkteklcnu-4265/technical-g uidance/phadxe-btw-zuufbuiuqvv-disease-(covid-2019)-vrt-sii-bsrmj-daau-wcgvhq-af Who is at risk for complications from [...] relieve his or her symptoms by using xwzg-qhi-ktcqlvb medicines that treat sneezing, coughing, and runny [...] water are not available, use alcohol-based hand sales broker. Avoid touching your face, mouth, nose, or [...] Prevention (CDC): www.cdc.gov/coronavirus/2019-ncov/travelers/index.html World Health Organization (WHO): www.who.int/emergencies/diseases/dmcwl-bsrtvejkfid-6213/travel-advice Know the risks and take action to [...] water are not available, use alcohol-based hand sales broker. Cough or sneeze into a tissue, sleeve, [...] in hot, soapy water or use a boiler repairman. Air-dry your dishes. Wash laundry in hot [...] Health Organization (WHO) Information and news updates: www.who.int/emergencies/diseases/qgqxk-gmihporxmyb-2773 Coronavirus health topic: www.who.int/health-topics/coronavirus Questions and answers on COVID-19: www.who.int/news-room/q-a-detail/n-p-ljlgmoesebxds Global tracker: [employer] [place] Academy of Pediatric[employer] (AAP) Information for families: www.healthychildren.org/[place]er/health-issues/conditions/chest-lungs/Pages /7792-Nvrss-Rertjxzzeil.aspx The coronavirus situation is changing rapidly. Check [...] 01/27/2020 Document Revised: 01/27/2020 Document Reviewed: 01/27/2020 Rewarding Return Patient Education 2019 Jipio. 09/05/2022 22:13:40 COVID-19 COVID-19 COVID-19 is a [...] to fight infection (immunocompromised). Live in a intermediate or long-term care facility. Have a long-term [...] managed at home with rest, fluids, and syqs-ulw-cemonem medicines. Treatment for a serious infection usually [...] are safe for you. General instructions Take didr-xck-glsuyaw and prescription medicines only as told by [...] water are not available, usean alcohol-based hand sales broker. ?Avoid touching your mouth, face, eyes, or [...] water are not available, use alcohol-based hand sales broker. Stay away from other members of your [...] have a weak immunity, live in a intermediate, or have chronic disease. There is no [...] 11/06/2019 Document Revised: 02/26/2020 Document Reviewed: 11/06/2019 Rewarding Return Patient Education 2020 [employer]io. Follow Up Care 09/05/2022 20:08:29 With:Luis Carlos Jung Address: [address] [place], [place] [id number] Business (1) When:09/08/2022 21:42:10 Comments:Use the albuterol inhaler 2 puffs every 4 hours for the next 2 to 3 days, you can use the Zofran every 6 hours as needed for nausea and vomiting. Please follow-up with your primary care doctor in thenext 2 to 3 days. Please return to the ED for any new or worsening symptoms. With:THANG MILLAN Address: [address] [place] [id number] Business (1) When:09/08/2022 21:42:06 [facility]11-22-2022 Evaluation + Plan noteExtracted from: Title:ED [...] Nausea/Vomiting, # 12 tab(s), Refills(s) 0, Pharmacy: [facility], 163, cm, 09/05/22 20:14:00 EST, [...] PTT Rapid COVID Antigen ([facility]) Saline Lock Insert Troponin 0 Hr. XR Chest Single View Future Appointments Appointment Date:09/06/2022 07:00:00 AM Scheduled Provider: [facility] Type:Outpatient COVID Testing [facility]11-21-2022 Evaluation + Plan note Diagnostic Tests Pending * Group B Streptococcus colonization by PCR 09/04/22 [facility]11-17-2022 Hospital Discharge instructions Patient Education 08/31/2022 00:56:47 Third Trimester of , Schc-hq-Lsmb Third Trimester of The third trimester is from week 28 through week 40 (months 7 through 9). This trimester is when your unborn baby (fetus) is growing very fast. At the end of the ninth month, the unborn baby is about20 inches in length. It weighs about 6 10 pounds. Follow these instructions at home: Medicines Take shre-emf-djrvfdv and prescription medicines only as told by [...] 12/26/2010 Document Revised: 01/22/2020 Document Reviewed: 11/06/2017 [employer] Patient Education 2020 [employer]. Follow Up Care 08/30/2022 21:31:53 With:Luis Carlos Jung Address: [address], [facility] [address] [place] [address]- Business (1) When:09/04/2022 Comments:Call for any problems.Call for severe abdominal painCall physician for heavy vaginal bleedingReturnfor contractions closer, longer, harderReturn for decreased movementReturn if ruptured membranes or vaginal bleeding [facility]11-08-2022 Hospital Discharge instructions Follow Up Care 08/22/2022 14:58:59 With:Dr. 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 [facility]11-04-2022 Evaluation + Plan note Diagnostic Tests Pending * Urine Culture 08/18/22 [facility]11-04-2022 Hospital Discharge instructions Follow Up Care 08/18/2022 03:47:49 With:Luis Carlos Jung Address: [address], [facility] [address] [place] [address]- Business (1) When:08/21/2022 08:45:00 Comments:Appointment has already been scheduled, please keep scheduled apptCall for any problems.Call physician if symptoms worsen [facility]10-30-2022 Hospital Discharge instructions Patient Education 08/13/2022 [...] 09/21/2003 Document Revised: 06/25/2018 Document Reviewed: 04/30/2017 [employer] Patient Education 2020 [employer] Follow Up Care 08/13/2022 17:29:42 With:Luis Carlos Jung Address: [address] [place], [place] [address] [address] [facility] (1) When:1 to 2 days Comments:Call for any problems.Return for contractions closer, longer, harderReturn for decreased movementReturn if ruptured membranes or vaginal bleeding [facility]10-13-2022 Hospital Discharge instructions Follow Up Care 07/27/2022 01:12:54 With:Dr. Jung [phone] Address:Unknown When:09/24/2022 20:30:00 Comments:Call for any problems.Return if ruptured membranes or vaginal bleedingReturn for decreased movementcontractions every 5 minutes lasting 45 seconds for an hourCall Sunday night at 7:30 PM to assure bed availability for induction [facility]10-12-2022 Hospital Discharge instructions Patient Education 07/26/2022 [...] Follow these instructions at home: Medicines Take zlph-vbd-kogwtxt and prescription medicines only as told by [...] as fried or sweet foods. ?Take an gcrs-epe-lxcvhpn or prescription medicine for constipation. If you [...] 12/28/2009 Document Revised: 05/28/2019 Document Reviewed: 11/11/2018 [employer] Patient Education 2020 [employer]. Follow Up Care 07/26/2022 07:56:25 With:Luis Carlos Jung Address: [address], [address] [place] [address]- Business (1) When:08/07/2022 07:45:00 [facility]10-03-2022 Evaluation + Plan noteExtracted from: Title:ED Note Author:Mathew NICHOLS, [place] te:07/17/22 UTI (urinary tract infection ) (N39.0: Urinary tract infection, site not specified) Orders: cephalexin, 500 mg = 1 cap(s), Oral, q12hr, X 5 day(s), # 10 cap(s), Refills(s) 0, Pharmacy: [facility], 162.5, cm, 07/17/22 9:09:00 EDT, Height/Length Dosing, 80, kg, 07/17/22 9:09:00 EDT, Weight Dosing Patient Specific Meds, Each, Misc, Once, Stop date 07/17/22 9:10:34 EDT, Physician Stop, 07/17/22 9:10:34 EDT Influenza A&B Ag Rapid COVID Antigen ([facility]) UA With Cult Reflex [facility]10-03-2022 Hospital Discharge instructions Patient Education 07/17/2022 [...] 01/26/2012 Document Revised: 01/23/2020 Document Reviewed: 09/04/2019 [employer] Patient Education 2020 [employer]. 07/17/2022 09:55:44 Urinary Tract Infection, Adult Urinary [...] Treatment for this condition includes: Antibiotic medicine. Vawk-ihx-ftecycv medicines to treat discomfort. Drinking enough water [...] Follow these instructions at home: Medicines Take nivo-fql-ewnsmuh and prescription medicines only as told by [...] 07/11/2006 Document Revised: 09/18/2019 Document Reviewed: 04/10/2019 [employer] Patient Education 2020 [employer]. Follow Up Care 07/17/2022 09:04:38 With:Luis Carlos Jung Address: [address] [place] [address] [address] Business (1) When:07/20/2022 09:46:49 With:THANG MILLAN Address: [address] [place] [address] Business (1) When:07/20/2022 09:46:41 Comments:Follow-up with your primary care provider in 3 to 5 days. If symptoms worsen, do not improve, or new symptoms arise please report back to emergency department for further evaluation. [facility]09-14-2022 Evaluation + Plan note Diagnostic Tests Pending * RPR with Conf Rfx 06/28/22 [facility]09-12-2022 Hospital Discharge instructions Patient Education 06/26/2022 [...] 09/21/2003 Document Revised: 06/25/2018 Document Reviewed: 04/30/2017 [employer] Patient Education 2020 [employer] 06/26/2022 21:35:59 Form - Movement Counts [...] 06/26/2022 20:41:33 With:Luis Carlos Jung Address: [address], [facility] [address] [place] [address]- Business (1) When:07/03/2022 07:45:00 Comments:Call for any problems.Please call if you need to rescheduleReturn for decreased movement [facility]09-05-2022 Hospital Discharge instructions Follow Up Care 06/18/2022 23:33:38 With:Luis Carlos Jung Address: [address], [facility] [address] [place] [address]- Business (1) When:5 to 7 days Comments:Appointment has already been scheduledCall for any problems.Call for fever > 100.5 FCall for severe abdominal painCall physician for heavy vaginal bleedingPlease call if you need to rescheduleReturn for contractions closer, longer, harderReturn for decreased movementReturn if ruptured membranes or vaginal bleeding [facility]07-18-2022 Hospital Discharge instructions Follow Up Care 05/01/2022 17:08:54 With:Luis Carlos Jung Address: [address], [facility] [address] [place] [address]- Business (1) When:05/09/2022 Comments:Return if ruptured membranes or vaginal bleedingReturn for contractions closer, longer, harderCall physician if symptoms worsenCall physician for heavy vaginal bleedingCall for severe abdominal painCall for fever > 100.5 FCall for any problems. drink more fluids including gatorade, take milk of magnesia twice /day until yo u have bowel movements, benefiber daily [facility]06-19-2022 Evaluation + Plan note Diagnostic Tests Pending * Urine Culture 04/02/22 [facility]06-19-2022 Hospital Discharge instructions Patient Education 04/02/2022 10:22:48 Second Trimester of , Gqki-pp-Yjdr Second Trimester of The second trimester is [...] Follow these instructions at home: Medicines Take bxkd-qvx-dyhfynd and prescription medicines only as told by [...] 12/26/2010 Document Revised: 01/23/2020 Document Reviewed: 11/06/2017 [employer] Patient Education 2020 [employer]. 04/02/2022 10:22:48 Vaginal Bleeding During , Second [...] says that this is safe. Medicines Take juou-ymw-zdbuuij and prescription medicines only as told by [...] 07/11/2006 Document Revised: 01/20/2020 Document Reviewed: 01/03/2018 [employer] Patient Education 2020 [employer]. Follow Up Care 04/02/2022 06:00:26 With:Dr. Jung [phone] Address:Unknown When:2 to 3 days Comments:Call for any problems.Call physician if symptoms worsen [facility]06-09-2022 Hospital Discharge instructions Patient Education 03/23/2022 20:39:21 Second Trimester of , Utau-mw-Cmvj Second Trimester of The second trimester is [...] Follow these instructions at home: Medicines Take zgrg-cyr-oggmirg and prescription medicines only as told by [...] 12/26/2010 Document Revised: 01/23/2020 Document Reviewed: 11/06/2017 [employer] Patient Education 2020 [employer] 03/23/2022 20:39:21 First Trimester of , Fglw-nq-Rttg First Trimester of The first trimester of [...] Follow these instructions at home: Medicines Take cmgw-tsn-ogfovnu and prescription medicines only as told by [...] Move your legs often if you must informatics developer one placefor a long time. Avoid heavy [...] grounds. You are around people who have Uzbek measles, fifth disease, or chickenpox. You have [...] 03/19/2009 Document Revised: 01/22/2020 Document Reviewed: 10/09/2017 [employer] Patient Education 2020 [employer]. 03/23/2022 20:39:21 Abdominal Pain During , Wdvl-sw-Imuj Abdominal Pain During Belly (abdominal) pain is [...] keep your pee (urine) pale yellow. Take elnp-hhz-sjpthcv and prescription medicines only as told by [...] 09/19/2010 Document Revised: 01/19/2020 Document Reviewed: 01/03/2018 [employer] Patient Education 2020 [employer]. Follow Up Care 03/23/2022 19:35:57 With:Luis Carlos Jung Address: [address] [place], [place] [id number] Business (1) When:03/27/2022 10:00:00 Comments:Call for any problems. Call [facility] first, ask to speak directly to Dr. Jung before heading to hospital unless an emergency. Call for severe abdominal pain or worsening pain.Return if vaginal bleedingor ruptured membranes.Wear belly band as much as possible, especially as your belly grows in . [facility]05-04-2022 Evaluation + Plan note Diagnostic Tests Pending * RPR with Conf Rfx 02/15/22 * HIV Screen 4th Generation wRfx 02/15/22 * Rubella Antibody IgG 02/15/22 * Hepatitis B Surface Antigen 02/15/22 * Urine Culture 02/15/22 [facility]06-18-2021 NoteHNO ID: [id number] Author: Bert Negrete, DO Service: ? Author Type: Fellow Type: Progress Notes Filed: 04/01/2021 9:15 AM Note Text: [facility] [address] [place], [place] [address] Martha Webb (Kelsey) [address] [facility] [address] PCP: Thang Millan, RECRUITER SPECIALIST Accompanied by: Mother CC: Headache HPI: Susan [...] bed and continue this dose - rizatriptan (MAXALT-CLINICAL APPEALS RN) 10 mg disintegrating tablet Take 1 tablet [...] Transformed Score (ran (more content not included)... [facility]06-10-2021 NoteHNO ID: [id number] Author: Karen Vinson, RT(R) Service: Nuclear Medicine Author Type: Video Production Coordinator Type: Progress Notes Filed: 03/24/2021 9:39 AM [...] safety can be found using this link: [email or web address] SIGNATURE: RT Oliva(R) PATIENT NAME: Susan Bro DATE: March 24, 2021 TIME: 9:38 AM PAGER/CONTACT #:[facility]05-27-2021 NoteHNO ID: [id number] Author: Martha Webb MD Service: ? Author [...] biliary ductal dilatation is (more content not included)...[facility]* Diagnosis Third trimester state, incidental documented in this encounter [facility] HealthcareEvaluation note* Diagnosis Third trimester state, incidental Hypothyroidism (acquired) (CMS/FORMERLY [facility]) Unspecified hypothyroidism documented in this encounter [facility] HealthcareEvaluation noteNo assessment information availableBelle[facility] Work Phone: Evaluation note* Diagnosis Menorrhagia with regular cycle documented in this encounter [facility] HealthcareEvaluation note* Diagnosis Pre-op examination Menorrhagia with regular cycle Abnormal uterine bleeding Unspecified disorder of menstruation and other abnormal bleeding from female genital tract Pelvic pain in female Unspecified symptom associated with female genital organs [facility] No data available for this section [facility] No data available for this section [facility] No data available for this section [facility] Summary Purpose Family History No Family History Records Found Relationship Condition Age at Onset Recorded Date/T ping Not Specified Goiter Unknown grandparent Heart disease Unknown Not Specified Diabetes mellitus Unknown Hypertension Unknown Advance Directives No Advanced Directives Records FoundDocuments on File Type Date Recorded Patient Natural Sciences Manager Expl anation Advance Directives and Livin g Will 10/14/2020 10:22 AM Documents on File Type Date Recorded Patient Natural Sciences Manager Expl anation ACP-Advance Directive ACP-Power of Vendor Manager Advance Directive Response Recorded Date/ Time Advance Directives No July 24, 2019 9:00am Discharge Instructions * Discharge Instr - Care Coordination* Andra Schmid RN - 10/14/2020 11:43 AM EST [facility] Primary Care Trust the experts at [facility] Physicians to meet your healthcare needs. When you make an appointment with [facility] Physicians, it's the start of a long-lasting partnership that's committed to your health. We provide the very best prevention, wellness and illness care, and give you access to the advanced medical services and expert treatment available at [facility]. Please note that the provider listed below is accepting patients in your area. [place]: [address] [place] [address] MD Debby Lala MD Christina Spring, CNP For the most up-to-date information on a care provider in your community, use the Find a Doctor tool on [employer] interactive studios [facility] Primary Care * Attachments The following attachments cannot be sent through Care Everywhere. * Vertigo ([place] Islander) * Arik Maneuver: Vertigo: Exercises ([place]) documented in this encounter* Instructions* Bakari Valente [...] be sent through Care Everywhere. * Bruises ([place] Island[place]) * Contusion ([place]) documented in this encounter Assessments Diagnosis Vertigo- Primary Dizziness and giddiness Diagnosis Contusion of right knee, initial encounter Contusion of multiple sites of right shoulder and upper arm, initial encounter Additional Source Comments INFORMATION SOURCE (unrecogn ized section and content) DATE CREATED AUTHOR 04/09/2018 [facility] DATE CREATED AUTHOR AUTHOR'S ORGANIZ ATION 08/10/2020 [facility] DATE CREATED AUTHOR AUTHOR'S ORGANIZ ATION 09/07/2020 [facility] DATE CREATED AUTHOR AUTHOR'S ORGANIZ ATION 10/20/2020 [facility] DATE CREATED AUTHOR AUTHOR'S ORGANIZ ATION 03/18/2021 [facility] [place] [facility] DATE CREATED AUTHOR AUTHOR'S ORGANIZ ATION 11/15/2021 [facility] DATE CREATED AUTHOR AUTHOR'S ORGANIZ ATION 03/13/2024 [facility] DATE CREATED AUTHOR AUTHOR'S ORGANIZ ATION 11/08/2024 [facility] DATE CREATED AUTHOR AUTHOR'S ORGANIZ ATION 11/13/2024 [facility] ysician Group Reason for Visit (unrecogniz ed section and content) Reason Comments Dizziness Reason Comments Knee Pain right knee pain, fel l over a dust guzman [employer]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 denies hitting head or any LOC Shoulder Pain rt shoulder, fell ov er dust guzman onto her right side. Reason Comments Routine Visit Reason Comments Menstrual Problem Heavy cycles Reason Comments EMBX Pre-op Visit Susan Griffiths PA-C - 10/14/2020 10:44 AM Amena Cantrell RN - 10/14/2020 10:32 AM EST ED Notes (unrecognized secti on and content) [facility] ED Note: NAME: Susan Bro 24 y.o. CSN: [id number] PCP: Physician No History: Chief Complaint: Dizziness [...] file Gets together: Not on file Attends cheondoism service: Not on file Active member of [...] does have reproducible vertigo with position changes. Wjahom-dn-ixgy maneuvers are intact without dysmetria. There is negative Romberg sign. There was no ataxia on ambulation. Psychiatric: Mood and Affect: Mood normal. Behavior: Behavior normal. Thought Content: Thought content normal. Laboratory & Radiological Imaging (if done): Labs Reviewed URINALYSIS - Abnormal; Notable for the following components: Result Value Clarity, Urine Cloudy (*) Specific Barton 1.028 (*) pH, Urine 8.0 (*) Protein, [...] at the following links: For Healthcare Providers: https://www.GetThis.gov/media/554248/download For Patients: https://www.fda.gov/media/213365/download HCG URINE, QUALITATIVE - Normal CBC AND DIFFERENTIAL Narrative: The following orders were created for panel order CBC w/ Diff. Procedure Abnormality Status --------- ------ CBC Auto Differential[[id number]] Abnormal Final result Please view results for these tests on the individual orders. HCG URINE, QUALITATIVE URINALYSIS CT Head Or Brain Without Contrast Final Result 1. No acute intracranial hemorrhage, focal edema or mass effect. Workstation ID: [id number] EKG: Normal sinus rhythm with sinus arrhythmia RATE: 74 AXIS: Normal axis INTERVALS: IL interval of 178 ms, QRS duration of [...] Antivert. She is referred to follow-up with [facility] or [place] that she does not currently have a [...] needed for dizziness . Susan Griffiths Physicians Manager Talent [facility] Emergency Department Susan Griffiths PA-C 10/14/20 1203 Special isolation precautions are in place with signage outside this patient's room. This primary care sales representative performs hand hygiene and enters the patient [...] any alcohol or drug abuse patient.[facility] Care Team (unrecognized sect ion and content) Team Status: Active Member Role Status Dates [facility] Primary Care Provider Active Team Status: Inactive Member Role Status Dates [facility] Primary Care Provider Active Start: February [...] BE BASED ON THE PRIMARY CLINICAL RECORDS. [employer] provides no warranty or guarantee of the accuracy or completeness of information in this document.
[2024-11-21] MEDS: LACTATED RINGER'S SOLUTION 1,000 ML 50 ML IV (08:33)
[2024-11-21 09:41] LABS: HCG Quantitative <1 mIU/mL
[2024-11-21 10:29] VITALS: BP 130/75; PULSE 77; TEMP 36.8; O2SAT 96
--- NOTE | 2024-11-21 10:31 | PM.ONB ---
Brief Operative Note Date of procedure: 11/21/24 Pre-op diagnosis general: menorrhagia Post-op diagnosis: same as pre-op Procedure: NAME OF PROCEDURE: [ ] Jacey endometrial ablation with hysteroscopy. PROCEDURE: The patient was taken back to the OR where she was prepped and draped in the normal sterile fashion after being placed in the dorsal lithotomy position, after being placed under general anesthesia without difficulty.? A weighted speculum was placed into the vagina. The anterior lip was grasped with a single tooth tenaculum. The patient was then sounded to approximated 8cm. The patient?s cervix was gently dilated using hegardilators. The hysteroscope was passed through the cervix into the uterus where both ostia were seen. No gross evidence of polyps, fibroids or malignancy. The cervical length was noted to be 4 cm. The total cavity length is 4cm.? The Jacey ablation apparatus was set to approximately 4cm in length. This was placed through the cervix and into the uterus. After the seal was tested, at that time the total ablation of 120 seconds was performed with the Jacey withoutdifficulty. All instruments were removed from the vagina. Excellent hemostasis noted.? Sponge and lap count correct times 2.? Patient taken to recovery in stable condition. Anesthesia: MAC Surgeon: Rashaun Amador Estimated blood loss (mL): 5 Pathology: none sent Condition: stable Disposition: PACU Urinary Catheter Management Urinary Catheter Management Urethral: Cath placed during this visit: no
[2024-11-21 10:44] VITALS: BP 128/86; PULSE 68; O2SAT 98
[2024-11-21] MEDS: HYDROCODONE/ACET 5-325 MG TABLET 1 TAB PO (10:54)
[2024-11-21 11:00] VITALS: BP 136/83; PULSE 72; O2SAT 98
--- NOTE | 2024-11-21 11:02 | PC.NURSE ---
1100:pt voids without difficulty.
[2024-11-21 11:25] VITALS: BP 130/86; PULSE 68; O2SAT 99
== END 2024-11-21 11:29 | disposition home or self-care (01) ==
PROVIDERS: Visit Provider Obstetrics & Gynecology
PROC: (CPT 952; principal; 2024-11-21 09:35)
DX: N92.0 Excessive and frequent menstruation with regular cycle (principal); N93.9 Abnormal uterine and vaginal bleeding, unspecified; R10.2 Pelvic and perineal pain; Z90.49 Acquired absence of other specified parts of digestive tract; F17.290 Nicotine dependence, other tobacco product, uncomplicated; E03.9 Hypothyroidism, unspecified
CPT/HCPCS: 58563; 36415; 84702; 85025; J1885; J2250; J2405; J2704; J3010

== ENCOUNTER 2025-04-08 12:23 | Outpatient (OUT) | payer OTHER, SELFPAY ==
--- OUTSIDE RECORDS SUMMARY | 2023-11-26 11:38 | XMS_ITS | Continuity of Care Document ---
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 hemianopsia right, phonophobia, photophobia, neck stiffness, vision loss left, vision loss right, visual aura and vertigo. Additional information: Mahogany COOPER. Lab Draw Labs obtained vuong ccessfully x2 attempts from left hand. Pt tolerated well. Band-aid applied. Tenzin depression This is a follow up visit. Related symptoms are poorly controlled. There is worsening of previously reported symptoms. The patient reports functioning as somewhat difficult. The patient presents with anxious/fearful thoughts and depressed mood but denies thoughts of or suicide. The patient's risk factors include chronic illness, recent childbirth and social isolation. The depression is aggravated by conflict or stress, lack of sleep and winter season. The patient's symptoms are not relieved by medications. Additional information: Mahogany COOPER. Nausea and vomiting Onset: gradu al. Duration: years. The patient describes it as stomach contents. The problem is with no change. Symptom is aggravated by food. Denies relieving factors. Associated symptoms include bloating, nausea, vomiting and weight loss. Pertinent negatives include abdominal pain, decreased urine output, dehydration, fever and rash. Additional information: Uncertain of last visit or plan of care with [facility] gastroenterology. Mahogany COOPER. Acne The patient pres ents with acne that began 2 to 3 months ago. The problem is moderate and worsened. Area(s) affected include the face. Relevant history positive for family history of depression and control with none. The patient denies history of liver disease, history of renal disease, previously taken Accutane and sensitive skin. Denies aggravating factors. Denies relieving factors. The problem is not currently under any medication or treatment management. Pertinent negatives include dry skin, erythema, hyperpigmentation, painful lesion, pruritus, scarring, sensitive skin or skin cracking. Additional information: Mahogany COOPER. Dep follow-up Feels like kiara galiciaon is worse than the last time she was here.No other issues to report.Scored 13 on PHQ-9//Jamila ARAGON annual exam Currently pregna nt: no. : 1. Parity: Term: 1. Livin. Patient is not contemplating . The patient states she uses none for control. Last LMP was 10/31/2022. Her menses is regular with normal flow with a frequency of every 28 days. Negative for dysmenorrhea and menorrhagia. Negative for: breast discharge, breast lump(s) and breast self exam. Positive for: breast pain (side: right). She does not drink alcohol. depression This is an initi al visit. Related symptoms are poorly controlled. The patient reports functioning as somewhat difficult. The patient presents with anxious/fearful thoughts, depressed mood and fatigue but denies difficulty falling asleep, difficulty staying asleep, increased energy, poor judgment or thoughts of or suicide. The depression is aggravated by post period. Interventions the patient has tried have not provided any relief. Additional information: of son 2 months, not breast feeding. 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 f/u depression Pt here for f/u depression. Pt c/o increased depression since the of her son 2 months ago. Pt states she has ups and downs, states one day she is fine and the next day she just doesn't feel herself. Phil RN check up Patient states t hat she continues to have abdominal pain, pt mentioned that she lost 120lbs over the course of the last year. Patient is currently being seen by gastroenterology at the [facility]. Patient states that a few days ago her legs gave out and she fell due to bilateral leg weakness.Pt states she is just not able to eat anything, she can not keep food down, so she tried to get a GI study down to follow a tracer through her GI track but she cold not keep the tracer down, Pt states she is not throwing up blood every now and then, but that just started and she is having lower right quadrant abdominal pain. They are going to try the study again and she is waiting to get scheduled. f/u Pt here for f/u stomach pain and depression and anxiety. Pt denies any new issues or concerns. Phil, RNSymptoms of depression and anxiety improving on Effexor, notes she is tolerating Effexor well and would like to have dose increase. Continues with weight loss since last visit. Does not believe this is connected to the Effexor medication. Notes she no longer can tolerate fluid intake without vomiting. and has not been eating or drinking over the past 2-3 days. Scheduled to follow up with [facility] on 07-04-21 and [facility] neurology on 07-05-21. Concerned her potassium may be low as it was previously low. Mahogany Cooper Screen Depression Within past mo nth, she has not been feeling herself. Feels depressed all the time. In the last year her eating and vomiting has been getting worse. Currently working with [facility] on this issue, but still have not figured it out. Has lost 30 lbs in last 3 months.//Jamila ARAGON depression This is a follow up visit. Related symptoms are poorly controlled. There is continuation of initial symptoms and worsening of previously reported symptoms. The patient reports functioning as very difficult. The patient presents with anxious/fearful thoughts, depressed mood, excessive worry, fatigue and loss of appetite but denies compulsive thoughts, decreased need for sleep, difficulty concentrating, difficulty falling asleep, difficulty staying asleep, diminished interest or pleasure, feelings of guilt, feelings of invulnerability, increased energy, poor judgment, racing thoughts, restlessness or thoughts of or suicide. The patient's risk factors include chronic illness, family history of depression, family history of anxiety and history of depression. The patient's risk factors exclude alcoholism, of a friend or loved one, drug abuse, history of suicidal attempts, recent childbirth, relationship problems, social isolation, unemployment and victim of abuse or violence. The depression is aggravated by conflict or stress and illness. The patient's relieving factors are medication (effexor). Additional information: would like to restart effexor. Mahogany COOPER. discuss meds Pt here for f/u medications. Pt c/o increased stomach pain, and vomiting after every meal. Pt also c/o increased depression, states the depression medication was working at first but doesn't seem to be helping anymore. Pt denies any other issues or concerns. MAHESH VillarrealHAs been seen by Dr. Arvizu on several occasions for the nausea and vomiting. Diagnosed with rumination and refereed to PT and ENT. All medications have been stopped per gastro with exception of PPI. Notes depression and anxiety have become uncontrolled while off Effexor, notes medication was working prior to being stopped per gastro. Uncertain of reason medication was stopped or for how long. Denies suicidal or homicidal ideations. Would like to discuss options for anxiety and depression.Complaints of increased pain with menstrual cramps over the past month. Denies chance of , currently on menses. Notes does have a history of irregular menses, does not see DIGITAL ART DIRECTOR or women's health. Attempted to use Midol with no improvement. Notes he menses does fluctuate between heavy and light. Mahogany [employer] TE[employer] f/u anxiety and depression Patie nt is here to f/u on her anxiety and depression. She says that the medication she started last months has helped her depression a little but has not touched her anxiety at all. She takes both medications at night and they make her very tired. She has a hard time waking up each morning because of them. Patient had appt with Emile 10/24/18. She said it helped but she is going to go back to [facility]. She has an appt with them February 14. 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 Pt states she took medications but has noticed no changes. Pt is still having vomiting after eating. Pt does have abdominal pain and cramping after eating. Pt denies diarrhea. No other complaints at this time. Kimberly Smalls RN depression The patient pres ents with anxious/fearful thoughts, depressed mood and loss of appetite but denies decreased need for sleep, difficulty concentrating, difficulty falling asleep, difficulty staying asleep, excessive worry, fatigue, paranoia, poor judgment or racing thoughts. The patient's risk factors include history of depression. The depression is aggravated by conflict or stress and remeron. Interventions the patient has tried have not provided any relief. The depression is associated with nausea and vomiting. Additional information: Significant increase of depression with thoughts of suicide on first dose of Remeron, stopped medication immediately and symptoms improved. Mahogany COOPER. Vomiting The severity of the problem is moderate. The symptoms are recurring. The location is right upper quadrant and left lower quadrant. The quality of the pain is achy and burning. These symptoms occur after meals. Aggravating factors include food. Symptoms are not relieved by proton pump inhibitors. Associated symptoms include change in appetite, nausea and vomiting. Pertinent negatives include back pain, bloating, blood in stool, constipation, diarrhea, dizziness, eructation, fever and lightheadedness. Additional information: Tolerated treatment for h.pylori well with no improvement of symptoms. Mahogany [facility]. hypertension Stomach Issues Pt here today fo r stomach issues. Pt states she has been having these issues for about years now. Pt states the last 3 weeks she has lost 20 pounds. Pt states she cant keep anything down. Pt states anything she eats or drinks she is throwing it back up. PT states this has been going on for a while but states its getting worse. Pt states she will get shakes really bad, sometimes she cant see straight. Pt states it doesnt seem to come and go it stays relatively constant. Pt states she has never seen gastro in the past. Asked patient if she has ever been put on medication that helps and she said no. No other issues or concernsTGrodi [facility] GERD The severity of the problem is moderate. The problem has not changed. The symptoms are recurring. The location is epigastric and hypogastric. The quality of the pain is burning and sharp. These symptoms occur after meals. Aggravating factors include food. Symptoms are relieved by vomiting. Symptoms are not relieved by H2 blockers or proton pump inhibitors. Associated symptoms include eructation, heartburn, nausea, vomiting and weight loss. Pertinent negatives include back pain, bloating, blood in stool, change in appetite, constipation, diaphoresis, diarrhea, dizziness, dyspnea, fever, flank pain, hematuria and lightheadedness. Additional information: [facility]. Thyroid problems The problem has not changed. Presenting symptoms include dysphagia and weight loss. Presenting symptoms do not include exophthalmus, fatigue, hoarseness, increased perspiration, insomnia, intolerance to cold, intolerance to heat, rapid heart beat, skin and nail changes and weight gain. Risk factors include age and female. Additional information: off thyroid medication since April. [facility]. f/u Pt here today fo r 3 month f/u. Pt states that she is still having a hard adjustment to changing her diet. Pt states that she is still vomiting and having diarrhea after she eats. Pt is also having abdominal pain. Pt states that she has significantly decreased her consumption of food but has gained about 20 lbs in the last month. Pt states that she is prescribed a thyroid medication from her [facility] due to low level but cannot remember name only that it's 50 mg. No other complaints at this time. Kimberly Smalls RNComplaints of continued depression and weight gain. Advises typically does not eat well during the day eating only one or 2 large meals in the evening due to work schedule. Occasional walks for exercise. Admits to fleeting thoughts of hurting herself denies specific plans and describes the thoughts as fleeting and not serious. Currently does not see a counselor and has an aversion towards counseling and does not believe she wants to start counseling. Believes doxycycline is helping with depression but may need more help. Denies any history of manic episodes. Complains of continued issues with reflux, complaints of reflux after meals, currently taking her omeprazole before every meal of the day, aware is only ordered for once daily, complaints that this is not helping with her reflux. Complains of having to go to bathroom immediately after meals since gallbladder removed. Denies diarrhea with meals, complaints of solid stools immediately after meals. Mild nausea with no vomiting. Complaints of dry patchy skin to the dorsum of the right foot without improvement. Denies open area or drainage to the rash, has used topical with no relief believe the rash is due to psoriasis. Patient verbalizes history of psoriasis. RGonzales [facility] f/u meds Pt here today fo r f/u on meds. Pt is post-op boris hoang. Pt does c/o of 9/10 pain. Given percocet by her surgeon. Denies any other issues today. MAHESH EricLap barry performed yesterday per Dr. Eloy Hernandez, patient scheduled for follow up with Dr. Lyons on 10-02-19. Dressings to stomach intact, instructed to remove on . Denies nausea or vomiting or fever. Patient taking Percocet for pain control at home. Given ibuprofen prior to discharge, unaware if she is allowed to take the medication at home. No bowel movement since surgery, minimal solid food intake, able to drink well. Duloxetine working well, denies need for medication changes or concerns, medication needs refilled. RGoshaista COOPER Abdominal pain Onset: 04 Years. The severity of the problem is mild. The problem has not changed. The symptoms are intermittent. The location is diffuse. The quality of the pain is colicky. These symptoms occur after meals. Aggravating factors include anxiety, bowel movement and constipation. Symptoms are not aggravated by alcohol or exercise. Symptoms are not relieved by bowel movement or H2 blockers. Associated symptoms include bloating, constipation, dizziness, heartburn, nausea and vomiting. Pertinent negatives include back pain, blood in stool and fever. FOLLOW UP PT here to silvestre w up on medications and review lab work. Pt states she was feeling more depressed being on the medication then when she was not on the medication. Pt states she stopped taking the medication about 2 weeks ago. Pt is wanting to see about trying something else. Pt was on the Pepcid to help with her vomiting. PT states she is throwing up about every other day. Pt is not sure if it is related to what she eats or something else. Pt states she did not think the Pepcid helped her. PHQ indicates severe depression. Pt states she has thoughts she would be better off but no thoughts of hurting herself. Pt has thoughts of hurting others but states she would never act on it. No other issues or concerns. Maximiliano PARSONS est care Pt here today to establish care. Pt has not a PCP in many years. Kimberly Smalls RNConcerns with anxiety and depression, present for approximately one year, no major changes over the past year, no major events, recently moved out of [facility] in June. Previous visit to ER for depression and anxiety with no admission or medication, no previous visit with counseling. Interest in starting medication to help with the symptoms. Complains of issues with digestion, history of GERD, EGD in the past revealed no acute finding, verbalizes that red or spicy meal cause stomach irritation then increased anxiety and lead to vomiting. No active symptoms at this time. 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 Status Date Functional Assessmen t No Information Instructions Date Instruction Additional Savita brooks 1 Use plastic covers for pillows, mattresses, and box springs.2 Avoid overstuffed furniture and down-filled bedding or pillows.3 Remove stuffed animals from the bed.4 Avoid sleeping on a bottom bunk.5 Wash your bedding every week in hot water, hotter than 130 degrees F.6 Do not allow smoking in your house.7 Wear a mask and gloves when cleaning, vacuuming, or painting to limit dust and chemical exposure.8 Vacuum twice a week.9 FOLLOW UP: as [id number] MEDICATIONS FLUTICASONE, Related to Nasal congestion 1. Take your medicat ions as prescribed2. Over the Counter ibuprofen, acetaminophen, or excedrin for breakthrough headaches3. Prescribed medication as ordered4. healthy well balanced diet5. maintain adequate sleep and good sleep hygiene6. Exercise 30-60 minutes 3-5 days per week7. Follow up: NEUROLOGY Related to Intractable migraine without status migrainosus, unspecified migraine type 1.Take your medicine exactly as directed. 2.Take your medicine the same time every day.3. Take your medicine with a full glass of water. Take it at least 1 hour before you eat breakfast. Or at bedtime, at least 3 hours after eating.4.Do not take calcium or iron within 4 hours of taking your thyroid medicine. 5.During your routine visits, tell your healthcare provider about any signs of hyperthyroidism (too much thyroid hormone), such as: Restlessness, Rapid weight loss, SweatingPalpitations6. Eat a high-fiber, low-calorie diet to relieve constipation and maintain a healthy weight.7. Exercise. Start slow, with a 5 to 15 minute walk each day. Try to work up to 10,000 steps, or 3 20-minute walks each day.8. Follow Up: Will contact after labs reviewed to set up follow up Related to Hypothyroidism, unspecified type Weight-reducing diet education R elated to Body mass index [BMI] 29.0-29.9, adult Giving encouragement to exercise Related to Body mass index [BMI] 29.0-29.9, adult 1. Take your medicat ions as prescribedINCREASE TOPAMAX IMITREX CONTINUED2. Over the Counter ibuprofen, acetaminophen, or Excedrin for breakthrough headaches NOT MIGRAINE TYPE3. Prescribed medication as ordered4. healthy well balanced diet5. maintain adequate sleep and good sleep hygiene6. Exercise 30-60 minutes 3-5 days per week7. Follow up: NEUROLOGY If you have not been contacted per specialist office to which you referred to in 2 weeks please contact the [facility] at [phone] and advise triage nurse. Related to Chronic daily headache 1. Take your medicat ions as prescribedSTART TOPAMAXSTOP MAXALTSTART IMITREX PRN2. Over the Counter ibuprofen, acetaminophen, or excedrin for breakthrough headaches NOT MIGRAINE TYPE3. Prescribed medication as ordered4. healthy well balanced diet5. maintain adequate sleep and good sleep hygiene6. Exercise 30-60 minutes 3-5 days per week7. Follow up: 2 WEEKS Related to Acute migraine Giving encouragement to exercise Related to Body mass index [BMI] 29.0-29.9, adult Lifestyle education regarding di et Related to Body mass index [BMI] 29.0-29.9, adult 1. Avoid nicotine an d caffeine2. Do not eat 2 hours prior to bedtime3. Avoid large meals4. Avoid spicy or greasy foods, avoid other foods which may cause reflux5. INCREASE PANTOPRAZOLE TO 40mg daily6. Mylanta, Maalox, or RL as needed for immediate relief7. FOLLOW UP: with gastro as scheduled Related to Chronic nausea 1. Take medications as prescribed.2. Consider counseling3. Exercise regularly4. practice good sleep hygiene.5. Well balanced healthy diet6. Use [facility] Hotline for any suicidal or homicidal ideationsTOLL FREE 1-960.170.49597. Follow up: 2 months Related to Depression with anxiety 1.Take your medicine exactly as directed. INCREASE SYNTHROID TO 50MCG2.Take your medicine the same time every day.3. Take your medicine with a full glass of water. Take it at least 1 hour before you eat breakfast. Or at bedtime, at least 3 hours after eating.4.Do not take calcium or iron within 4 hours of taking your thyroid medicine. 5.During your routine visits, tell your healthcare provider about any signs of hyperthyroidism (too much thyroid hormone), such as: Restlessness, Rapid weight loss, SweatingPalpitations6. Eat a high-fiber, low-calorie diet to relieve constipation and maintain a healthy weight.7. Exercise. Start slow, with a 5 to 15 minute walk each day. Try to work up to 10,000 steps, or 3 20-minute walks each day.8. Follow Up: 8 WEEKS Related to Hypothyroidism, unspecified type 1. Take your medicat ions as prescribedMAXALT STARTED2. Over the Counter ibuprofen, acetaminophen, or excedrin for breakthrough headaches3. Prescribed medication as ordered4. healthy well balanced diet5. maintain adequate sleep and good sleep hygiene6. Exercise 30-60 minutes 3-5 days per week7. Follow up: 1 WEEK Related to Nonintractable headache, unspecified chronicity pattern, unspecified headache type Giving encouragement to exercise Related to Body mass index [BMI] 29.0-29.9, adult Dietary management e ducation, guidance, and counseling Related to Body mass index [BMI] 29.0-29.9, adult 1. Referred to ER fo r evaluation- mother to take patient Related to Acute vomiting 1. Referred to ER fo r evaluation- mother to take patient Related to Dizziness 1. Referred to ER fo r evaluation- mother to take patient Related to Severe headache 1. TSH pending2. Follow up 1 wee k Related to Hypothyroidism, unspecified type Giving encouragement to exercise Related to Body mass index [BMI] 29.0-29.9, adult Dietary management e ducation, guidance, and counseling Related to Body mass index [BMI] 29.0-29.9, adult 1. referral placed [facility] for 2nd opinion as requested per patient. If you have not been contacted per specialist office to which you referred to in 2 weeks please contact the [facility] at [phone] and advise triage nurse. Related to Chronic nausea 1. clindabenzoyl gel as directed2. follow up 1 month Related to Adult acne 1. 1. Avoid nicotine and caffeine2. Do not eat 2 hours prior to bedtime3. Avoid large meals4. Avoid spicy or greasy foods, avoid other foods which may cause reflux5. pantoprazole 20mg daily6. Mylanta, Maalox, or RL as needed for immediate relief7. FOLLOW UP: 1 month Related to Chronic nausea 1. Take medications as prescribed.INCREASE EFFEXOR TO 75MG2. Consider counseling3. Exercise regularly4. practice good sleep hygiene.5. Well balanced healthy diet6. Use [facility] Hotline for any suicidal or homicidal ideationsTOLL FREE 5-073-18315379. Follow up: 1 month Related to Anxiety and depression Lifestyle education regarding di et Related to Body mass index [BMI] 29.0-29.9, adult Giving encouragement to exercise Related to Body mass index [BMI] 29.0-29.9, adult Giving encouragement to exercise Related to Body mass index [BMI] 30.0-30.9, adult Dietary management e ducation, guidance, and counseling Related to Body mass index [BMI] 30.0-30.9, adult 1. cephalexin as ord ered2. warm compresses twice daily3. ER for worsening of symptoms4. FOLLOW UP WITH [facility] Related to Mastitis 1. Take medications as prescribed.2. Consider counseling3. Exercise regularly4. SLEEP WHEN INFANT SLEEPACCEPT HELP5. Well balanced healthy diet6. Use [facility] [facility] for any suicidal or homicidal ideationsTOLL FREE [phone]. Follow up: 1 month Related to Depression with anxiety Giving encouragement to exercise Related to Body mass index [BMI] 30.0-30.9, adult Dietary management e ducation, guidance, and counseling Related to Body mass index [BMI] 30.0-30.9, adult Giving encouragement to exercise Related to Body mass index [BMI] 25.0-25.9, adult Dietary management e ducation, guidance, and counseling Related to Body mass index [BMI] 25.0-25.9, adult 1. Push fluids2. CMP , Amylase, Lipase3. Contact Dr. Webb [facility] for sooner appointment4. ER for symptoms or signs discussed5. FU appt with Dr. Piña. . Related to Chronic nausea Dietary management e ducation, guidance, and counseling Related to Body mass index [BMI] 26.0-26.9, adult Giving encouragement to exercise Related to Body mass index [BMI] 26.0-26.9, adult 1. Take medications as prescribed.2. consider counseling3. Exercise regularly4. practice good sleep hygiene.5. Use [facility] Hotline for any suicidal or homicidal ideations6 Follow up 1 month Related to Anxiety and depression Lifestyle education regarding di et Related to Body mass index [BMI] 27.0-27.9, adult Giving encouragement to exercise Related to Body mass index [BMI] 27.0-27.9, adult 1. FU womens health2. Naproxen P RN. Related to Menstrual cramps 1. Continue with rec ommendations per gastro and follow up Related to Chronic nausea 1. Start counseling2 . FU 3 months3. Request gastro records Related to Anxiety and depression Giving encouragement to exercise Related to Body mass index [BMI] 33.0-33.9, adult Dietary management e ducation, guidance, and counseling Related to Body mass index [BMI] 33.0-33.9, adult 1. Take medications as prescribed.2. consider counseling3. Exercise regularly4. practice good sleep hygiene.5. Use [facility] Hotline for any suicidal or homicidal ideations6 Follow up 3 months Related to Anxiety and depression 1. GI as scheduled, Dr. Sánchez . stop zofran3. REGLAN TID PRN Related to Chronic nausea Giving encouragement to exercise Related to Body mass index [BMI] 35.0-35.9, adult Dietary management e ducation, guidance, and counseling Related to Body mass index [BMI] 35.0-35.9, adult 1. Refer to gastro2. Zofran PRN3. Lacrosse diet4 push fluids Related to Abdominal pain in female patient 1. Take medications as prescribed.2. counseling3. Exercise regularly4. practice good sleep hygiene.5. Use [facility] Hotline for any suicidal or homicidal ideations6 Follow up 1 month Related to Anxiety and depression Dietary management e ducation, guidance, and counseling Related to Body mass index [BMI] 38.0-38.9, adult Giving encouragement to exercise Related to Body mass index [BMI] 38.0-38.9, adult 1. TSH T42. FU 2 weeks. Related to Hypothyroidism, unspecified type 1. Remeron nightly2. stop duloxe gladys Related to Anxiety and depression 1. labs drawn2. UA, urine preg3. FU 2 weeks. 4. zofran prn5. contineu ppi and h2 agonist. Related to Abdominal pain in female patient Giving encouragement to exercise Related to Body mass index (BMI) 40.0-44.9, adult Dietary management e ducation, guidance, and counseling Related to Body mass index (BMI) 40.0-44.9, adult Giving encouragement to exercise Related to Body mass index (BMI) 40.0-44.9, adult Dietary management e ducation, guidance, and counseling Related to Body mass index (BMI) 40.0-44.9, adult Giving encouragement to exercise Related to Body mass index (BMI) 40.0-44.9, adult Dietary management e ducation, guidance, and counseling Related to Body mass index (BMI) 40.0-44.9, adult Assessments Type Assessment Date No Information Patient Care Teams Name Effective Dates (start - stop) Status Members No Information
--- OUTSIDE RECORDS SUMMARY | 2025-04-08 12:26 | XMS_ITS | Encounter Summary ---
Author Organization [facility] Address [address] [place] [address] Care Team Providers Care Toy Mechanic Name Role Phone Unavailable Primary Care Provider Unavailabl e Encounter Details Date Type Department Care Team (Late st Contact Info) Description 10/03/2023 Clinisync Result Encounter [facility] External Department Unsolicited Rashaun Amador DO [address] [facility] [address] [place], [facility] Social History Tobacco Use Types Packs/Day Years Used Date Smoking Tobacco: Never Assessed Comments Yes Sex and Gender Information Value Date Recorded Sex Assigned at Female 07/03/2023 2:52 PM EDT Legal Sex Female 11:09 PM EDT Gender Identity Female 07/03/2023 2:52 PM EDT Sexual Orientation Straight 07/03/2023 2: 52 PM EDT COVID-19 Exposure Response Date Recorded In the last 10 days, have yo u been in contact with someone who was confirmed or suspected to have Coronavirus/COVID-19? No / Unsure 09/05/2023 9:00 AM EST documented as of this encounter Plan of Treatment Upcoming Encounters Date Type Department Care Team (Late st Contact Info) Description 04/22/2025 8:30 AM EDT Office Visit [facility] [address] [place] [phone] Michelle Vogel PA [address] [place] [address] 05/27/2025 8:30 AM EDT Office Visit [facility] [address] [place] [address] Michelle Vogel PA [address] [place] [address] documented as of this encounter Goals Goal Patient Goal Type Associated Problems Recent Progress Patient-Stated? Author Reminders Care Plan OB Reminders No Open Scheduling, Background documented as of this encounter Procedures Procedure Name Priority Date/Time Associated Diagnosis Comments US OB GROWTH 10/03/2023 1:03 PM EST documented in this encounter Results * US OB GROWTH (10/03/2023 1:03 PM EST) Anatomical Region Laterality Modality Other 10/03/2023 1:03 PM EST Narrative 10/03/2023 1:06 PM EST The [address] [address] Ultrasound Report Signed Patient: DEANDRA MOCTEZUMA MR#: [id number] : 1995 Acct:[id number] Age/Sex: 27 / F ADM Date: 10/03/23 Loc: US Attending Dr: Rashaun Amador D.O. Ordering Physician: Rashaun Amador D.O. Date of Service: 10/03/23 Procedure(s): US OB growth Accession Number(s): [id number] cc: Rashaun Amador D.O.; Physician,Non-Staff M.D. The [address] [address] Patient Name: DEANDRA MOCTEZUMA MRN: [id number] date: 1995 Sex: F Assigned Patient Location: US Current Patient Location: US Accession/Order Number: [id number] Exam Date: 10/03/2023 10:49 Report Date: 10/03/2023 13:03 At the request of: RASHAUN AMADOR Procedure: US OB growth PROCEDURE: US OB growth HISTORY: MATERNAL THYROID DISORDER COMPARISON: 09/03/2023 TECHNIQUE: Transabdominal sonographic examination was performed for obstetrical and evaluation. FINDINGS: Number: 1 Heart Rate: 140.0 bpm H.B. /min Amniotic Fluid Volume: 14.2 cm, normal. Largest fluid pocket 4.8 cm Placental Location: Posterior BIOMETRY: BPD: 7.3 cm 29 weeks 1 days , 64% HC: 26.6 cm 29 weeks 0 days , 35% AC:23.7 cm 28 weeks 0 days , 31% FL: 4.9 cm 26 weeks 3 days , less than 3% EFW: 1104.3 grams 2 lbs. 7 oz., 14% FL/AC: 20.5 FL/BPD: 66.9 HC/AC: 1.1 GESTATIONAL AGE: Age by EDC: 28 weeks 3 days DARON by EDC: 12/23/2023 Ultrasound Age: 28 weeks 1 days Ultrasound DARON: 12/25/2023 US/US OB growth IMPRESSION: Femur length less than the 3rd percentile. Otherwise normal interval growth *Reference: [employer] Practice Guideline for the performance of Obstetric Ultrasound Examinations, July 15, 2007. Electronically authenticated by: MERNA SILVA Date: 10/03/2023 13:03 Dictated By: Merna Silva M.D. Signed By: 10/03/23 1306 DD/ 130 TD/TT: Silk Screen Printer: Procedure Note Radiology, Radiologist, MD - 12/19/2023 [place] [address] Ultrasound Report Signed Patient: DEANDRA MOCTEZUMA DMR#: [id number] : 1995Acct:[id number] Age/Sex: 27 / FADM Date: 10/03/23 Loc: US Attending Dr: Rashaun Amador D.O. Ordering Physician: Rashaun Amador D.O. Date of Service: 10/03/23 Procedure(s): US OB growth Accession Number(s): [id number] cc: Rashaun Amador D.O.; Physician,Non-Staff Daniel The [place] [id number] Patient Name: DEANDRA MOCTEZUMA MRN: [id number] date: 1995 Sex: F Assigned Patient Location: US Current Patient Location: Accession/Order Number: [id number] Exam Date: 10/03/2023 10:49 Report Date: 10/03/2023 13:03 At the request of: RASHAUN AMADOR Procedure: US OB growth PROCEDURE: US OB growth HISTORY: MATERNAL THYROID DISORDER COMPARISON: 09/03/2023 TECHNIQUE: Transabdominal sonographic examination was performed for obstetrical and evaluation. FINDINGS: Number: 1 Heart Rate: 140.0 bpm H.B. /min Amniotic Fluid Volume: 14.2 cm, normal. Largest fluid pocket 4.8 cm Placental Location: Posterior BIOMETRY: BPD: 7.3 cm 29 weeks 1 days , 64% HC: 26.6 cm 29 weeks 0 days , 35% AC:23.7 cm 28 weeks 0 days , 31% FL: 4.9 cm 26 weeks 3 days , less than 3% EFW: 1104.3 grams 2 lbs. 7 oz., 14% FL/AC: 20.5 FL/BPD: 66.9 HC/AC: 1.1 GESTATIONAL AGE: Age by EDC: 28 weeks 3 days DARON by EDC: 12/23/2023 Ultrasound Age: 28 weeks 1 days Ultrasound DARON: 12/25/2023 US/US OB growth IMPRESSION: Femur length less than the 3rd percentile. Otherwise normal intervalgrowth *Reference: [employer] Practice Guideline for the performance of Obstetric Ultrasound Examinations, July 15, 2007. Electronically authenticated by: MERNA SILVA Date: 10/03/2023 13:03 Dictated By: Merna Silva M.D. Signed By:10/03/23 1306 DD/ 1303 TD/TT: Silk Screen Printer: us Rashaun Amador DO [facility] Final Result documented in this encounter Visit Diagnoses Not on filedocumented in this encounter Additional Health Concerns Active Problems Noted Date Diagnosed Date OB Reminders 07/17/2023 documented as of this encounter
--- OUTSIDE RECORDS SUMMARY | 2025-04-08 12:26 | XMS_ITS | Encounter Summary ---
Author Organization [facility] Address [address] [place] [address] Care Team Providers Care Extension Course Coordinator Name Role Phone Unavailable Primary Care Provider Unavailabl e Encounter Details Date Type Department Care Team (Late st Contact Info) Description 08/06/2023 Clinisync Result Encounter [facility] External Department Unsolicited Rashaun Amador DO [address] [place], [facility] Social History Tobacco Use Types Packs/Day Years [...] suspected to have Coronavirus/COVID-19? No / Unsure 08/07/2023 2:14 PM EDT documented as of this encounter Plan of Treatment Upcoming Encounters Date Type Department Care Team (Late st Contact Info) Description 04/22/2025 8:30 AM EDT Office Visit [facility] [address] [place] [place] [phone] Michelle Vogel PA [address] [place] [address] 05/27/2025 8:30 AM EDT Office Visit [facility] [address] [place] [address] Michelle Vogel PA [address] [place], [facility] documented as of this encounter Goals Goal Patient Goal Type Associated Problems Recent Progress Patient-Stated? Author Reminders Care Plan OB Reminders No Open Scheduling, Background documented as of this encounter Procedures Procedure Name Priority Date/Time Associated Diagnosis Comments US OB ANATOMY 08/06/2023 9:42 PM EDT documented in this encounter Results * US OB ANATOMY (08/06/2023 9:42 PM EDT) Anatomical Region Laterality Modality Other 08/06/2023 9:42 PM EDT Narrative 08/06/2023 9:42 PM EDT The [address] [address] Ultrasound Report Signed Patient: DEANDRA MOCTEZUMA MR#: [id number] : 1995 Acct:[id number] Age/Sex: 27 / F ADM Date: 08/06/23 Loc: US Attending Dr: Rashaun Amador D.O. Ordering Physician: Rashaun Amador D.O. Date of Service: 08/06/23 Procedure(s): US OB anatomy Accession Number(s): [id number] cc: Rashaun Amador D.O.; Physician,Non-Staff M.D. The [address] [address] Patient Name: DEANDRA MOCTEZUMA MRN: [id number] date: 1995 Sex: F Assigned Patient Location: US Current Patient Location: US Accession/Order Number: [id number] Exam Date: 08/06/2023 07:45 Report Date: 08/06/2023 21:42 At the request of: RASHAUN AMADOR Procedure: US OB anatomy EXAMINATION: US OB anatomy, US OB transvaginal HISTORY: Second Trimester Z34.92 COMPARISON: No relevant comparison available. TECHNIQUE: Transabdominal sonographic examination was performed for obstetrical and evaluation. FINDINGS: Number: 1 Heart Rate: 144.4 bpm H.B. /min Amniotic Fluid Volume: Subjectively normal Placental Location: Posterior fundal; lower margin 7.9 cm from os. Cervix Length: 4.2 cm; closed. ANATOMY: Normal Structures -cerebellum, choroid plexus, cisterna magna, lateral cerebral ventricles, orbits, midline falx, hard palate, four-chamber heart, RVOT, LVOT, stomach, kidneys, bladder, umbilical cord insertion into abdomen, three-vessel cord, cervical spine, thoracic spine, lumbar spine, sacral spine, right upper extremity, left upper extremity, right lower extremity, left lower extremity. SUBOPTIMALLY SEEN: None ABNORMALITIES: None BIOMETRY: BPD: 4.7 cm 20 weeks 1 days ; 48% HC: 17.2 cm 19 weeks 5 days; 25% AC: 15.5 cm 20 weeks 5 days; 62% FL: 2.8 cm 18 weeks 4 days; 5% EFW:309.6 grams; 24% FL/AC: 18.1 FL/BPD: 60.1 HC/AC: 1.1 GESTATIONAL AGE: Age by EDC: 20 weeks 1 days DARON by EDC: 12/23/2023 Age by current US: 19 weeks 6 days DARON by current US: 12/25/2023 US/US OB anatomy IMPRESSION: 1. Single live intrauterine with growth detailed above. 2. Femur length is at the 5th percentile. Electronically authenticated by: HUDSON ASIF Date: 08/06/2023 21:42 Dictated By: Hudson Asif M.D. Signed By: 08/06/232144 DD/ 41 TD/TT: Medicaid Plan Compliance Director: Procedure Note Radiology, Radiologist, - 08/07/2023 [place] [address] Ultrasound Report Signed Patient: DEANDRA MOCTEZUMA [facility]#: [id number] : 1995Acct:[id number] Age/Sex: 27 / FADM Date: 08/06/23 Loc: US Attending Dr: Rashaun Amador D.O. Ordering Physician: Rashaun Amador D.O. Date of Service: 08/06/23 Procedure(s): US OB anatomy Accession Number(s): [id number] cc: Rashaun Amador D.O.; Physician,Non-Staff Daniel [address] [address] Patient Name: DEANDRA MOCTEZUMA MRN: [id number] date: 1995 Sex: F Assigned Patient Location: US Current Patient Location: US Accession/Order Number: [id number] Exam Date: 08/06/2023 07:45 Report Date: 08/06/2023 21:42 At the request of: RASHAUN AMADOR Procedure: US OB anatomy EXAMINATION: US OB anatomy, US OB transvaginal HISTORY: Second Trimester Z34.92 COMPARISON: No relevant comparison available. TECHNIQUE: Transabdominal sonographic examination was performed for obstetrical and evaluation. FINDINGS: Number: 1 Heart Rate: 144.4 bpm H.B. /min Amniotic Fluid Volume: Subjectively normal Placental Location: Posterior fundal; lower margin 7.9 cm from os. Cervix Length: 4.2 cm; closed. ANATOMY: Normal Structures -cerebellum, choroid plexus, cisterna magna, lateral cerebral ventricles, orbits, midline falx, hard palate, four-chamberheart, RVOT, LVOT, stomach, kidneys, bladder, umbilical cord insertion intoabdomen, three-vessel cord, cervical spine, thoracic spine, lumbar spine, sacralspine, right upper extremity, left upper extremity, right lower extremity, leftlower extremity. SUBOPTIMALLY SEEN: None ABNORMALITIES: None BIOMETRY: BPD: 4.7 cm 20 weeks 1 days ; 48% HC: 17.2 cm 19 weeks 5 days; 25% AC: 15.5 cm 20 weeks 5 days; 62% FL: 2.8 cm 18 weeks 4 days; 5% EFW:309.6 grams; 24% FL/AC: 18.1 FL/BPD: 60.1 HC/AC: 1.1 GESTATIONAL AGE: Age by EDC: 20 weeks 1 days DARON by EDC: 12/23/2023 Age by current US: 19 weeks 6 days DARON by current US: 12/25/2023 US/US OB anatomy IMPRESSION: 1. Single live intrauterine with growth detailed above. 2. Femur length is at the 5th percentile. Electronically authenticated by: HUDSON ASIF Date: 08/06/2023 21:42 Dictated By: Hudson Asif M.D. Signed By:08/06/232144 DD/ 41 TD/TT: Medicaid Plan Compliance Director: us Rashaun Perry DO [facility] Final Result documented in this encounter Visit Diagnoses Not on filedocumented in this encounter Additional Health Concerns Active Problems Noted Date Diagnosed Date OB Reminders 07/17/2023 documented as of this encounter
--- OUTSIDE RECORDS SUMMARY | 2025-04-08 12:26 | XMS_ITS | Encounter Summary ---
Author Organization [facility] Address [address] [place] [address] Care Team Providers Care Research Pharmacist Name Role Phone Unavailable Primary Care Provider Unavailabl e Encounter Details Date Type Department Care Team (Late st Contact Info) Description 09/10/2024 Abstract [facility] [address] [place] [address] Rashaun Amador DO [address] [place] [address] Dr Eugene Lopez, [facility]11 Social History Tobacco Use Types Packs/Day Years Used Date Smoking Tobacco: Never Assessed Comments No Sex and Gender Information Value Date Recorded Sex Assigned at Female 07/03/2023 2:52 PM EDT Legal Sex Female 11:09 PM EDT Gender Identity Female 07/03/2023 2:52 PM EDT Sexual Orientation Straight 07/03/2023 2: 52 PM EDT documented as of this encounter Plan of Treatment Upcoming Encounters Date Type Department Care Team (Late st Contact Info) Description 04/22/2025 8:30 AM EDT Office Visit [facility] [address] [facility] [place] [address] Michelle Vogel PA [address] [place] [address] 05/27/2025 8:30 AM EDT Office Visit [facility] [address] [facility] [place] [place] [address] Michelle Vogel PA [address] [facility] [address] [place], [facility]11 documented as of this encounter Goals Goal Patient Goal Type Associated Problems Recent Progress Patient-Stated? Author Reminders Care Plan OB Reminders No Open Scheduling, Background documented as of this encounter Visit Diagnoses Not on filedocumented in this encounter Additional Health Concerns Active Problems Noted Date Diagnosed Date OB Reminders 07/17/2023 documented as of this encounter
--- OUTSIDE RECORDS SUMMARY | 2025-04-08 12:26 | XMS_ITS | Encounter Summary ---
Author Organization [facility] Address [address] [place] [address] Care Team Providers Care Electric Refrigerator Preparer Name Role Phone Unavailable Primary Care Provider Unavailabl e Encounter Details Date Type Department Care Team (Late st Contact Info) Description 11/21/2024 Abstract [facility] OB [address] [place] [address] Rashaun Amador DO [address] [place] [address] Dr Eugene Lopez, [facility]11 Social History Tobacco Use Types Packs/Day Years Used Date Smoking Tobacco: Never Assessed Comments Unknown Sex and Gender Information Value Date Recorded Sex Assigned at Female 07/03/2023 2:52 PM EDT Legal Sex Female 11:09 PM EDT Gender Identity Female 07/03/2023 2:52 PM EDT Sexual Orientation Straight 07/03/2023 2: 52 PM EDT documented as of this encounter Plan of Treatment Upcoming Encounters Date Type Department Care Team (Late st Contact Info) Description 04/22/2025 8:30 AM EDT Office Visit [facility] OB [address] [facility] [place] [address] Michelle Vogel PA [facility] [place] [address] 05/27/2025 8:30 AM EDT Office Visit [facility] OB [address] [place], [place] [address] [address] Michelle Vogel PA [address] [facility] [address] [place], [facility]11 documented as of this encounter Goals Goal Patient Goal Type Associated Problems Recent Progress Patient-Stated? Author Reminders Care Plan OB Reminders No Open Scheduling, Background documented as of this encounter Visit Diagnoses Not on filedocumented in this encounter Additional Health Concerns Active Problems Noted Date Diagnosed Date OB Reminders 07/17/2023 documented as of this encounter
--- OUTSIDE RECORDS SUMMARY | 2025-04-08 12:26 | XMS_ITS | Encounter Summary ---
Author Organization [facility] Address [address] [place] [address] Care Team Providers Care Water Systems Designer Name Role Phone Unavailable Primary Care Provider Unavailabl e Encounter Details Date Type Department Care Team (Late st Contact Info) Description 11/06/2023 Clinisync Result Encounter [facility] External Department Unsolicited Rashaun Amador DO [address] [facility] [address] Eugene Lopez, [facility]11 Social History Tobacco Use Types Packs/Day Years [...] 04/22/2025 8:30 AM EDT Office Visit [facility] OB [address] [facility] [place] [address] Michelle Vogel PA [address] [place], [place] [address] 05/27/2025 8:30 AM EDT Office Visit [facility] OB [address] [facility] [place] [address] Michelle Vogel, PA [address] [place], [facility]11 documented as of this encounter Goals Goal Patient Goal Type Associated Problems Recent Progress Patient-Stated? Author Reminders Care Plan OB Reminders No Open Scheduling, Background documented as of this encounter Procedures Procedure Name Priority Date/Time Associated Diagnosis Comments US OB GROWTH 11/06/2023 11:20 AM EST documented in this encounter Results * US OB GROWTH (11/06/2023 11:20 AM EST) Anatomical Region Laterality Modality Other 11/06/2023 11:2 0 AM EST Narrative 11/06/2023 11:23 [place] [address] Ultrasound Report Signed Patient: DEANDRA MOCTEZUMA MR#: [id number] : 1995 Acct:[id number] Age/Sex: 28 / F ADM Date: 11/06/23 Loc: US Attending Dr: Rashaun Amador D.O. Ordering Physician: Rashaun Amador D.O. Date of Service: 11/06/23 Procedure(s): US OB growth Accession Number(s): [id number] cc: Rashaun Amador D.O.; Physician,Non-Staff M.DPatricia [address] [address] Patient Name: DEANDRA MOCTEZUMA MRN: [id number] date: 1995 Sex: F Assigned Patient Location: US Current Patient Location: US Accession/Order Number: [id number] Exam Date: 11/06/2023 10:51 Report Date: 11/06/2023 11:20 At the request of: RASHAUN AMADOR Procedure: US OB growth EXAMINATION: US OB growth HISTORY: LGA COMPARISON: TECHNIQUE: Transabdominal sonographic examination was performed for obstetrical and evaluation. FINDINGS: Number: 1 Heart Rate: 127.0 bpm H.B. /min Amniotic Fluid Volume: 12.6 cm, largest pocket 3.4 cm position: Cephalic presentation, longitudinal lie Placental Location: Posterior BIOMETRY: BPD: 8.3 cm 33 weeks 4 days , 57% HC: 30.3 cm 33 weeks 5 days, 27% AC: 29.2 cm 33 weeks 2 days, 54% FL: 5.9 cm 30 weeks 6 days , less than 3% EFW:2017.3 grams; 4 lbs. 7 oz., 26% FL/AC: 20.3 FL/BPD: 71.1 HC/AC: 1.0 GESTATIONAL AGE: Age by EDC: 33 weeks 1 days Age by current US: 32 weeks 6 days DARON by current US: 12/26/2023 DARON by EDC: 12/24/2023 US/US OB growth IMPRESSION: Femur length less than the 3rd percentile, otherwise normal interval growth *Reference: [employer] Practice Guideline for the performance of Obstetric Ultrasound Examinations, July 15, 2007. Electronically authenticated by: MERNA SILVA Date: 11/06/2023 11:20 Dictated By: Merna Silva M.D. Signed By: 11/06/23 1123 DD/ 1120 TD/TT: Relocation Coordinator: Procedure Note Radiology, Radiologist, MD - 12/19/2023 [place] [address] Ultrasound Report Signed Patient: DEANDRA MOCTEZUMA DMR#: [id number] : 1995Acct:[id number] Age/Sex: 28 / FADM Date: 11/06/23 Loc: US Attending Dr: Rashaun Amador D.O. Ordering Physician: Rashaun Amador D.O. Date of Service: 11/06/23 Procedure(s): US OB growth Accession Number(s): [id number] cc: Rashaun Amador D.O.; Physician,Non-Staff Daniel The [place] [id number] Patient Name: DEANDRA MOCTEZUMA MRN: [id number] date: 1995 Sex: F Assigned Patient Location: US Current Patient Location: US Accession/Order Number: [id number] Exam Date: 11/06/2023 10:51 Report Date: 11/06/2023 11:20 At the request of: RASHAUN AMADOR Procedure: US OB growth EXAMINATION: US OB growth HISTORY: LGA COMPARISON: TECHNIQUE: Transabdominal sonographic examination was performed for obstetrical and evaluation. FINDINGS: Number: 1 Heart Rate: 127.0 bpm H.B. /min Amniotic Fluid Volume: 12.6 cm, largest pocket 3.4 cm position: Cephalic presentation, longitudinal lie Placental Location: Posterior BIOMETRY: BPD: 8.3 cm 33 weeks 4 days , 57% HC: 30.3 cm 33 weeks 5 days, 27% AC: 29.2 cm 33 weeks 2 days, 54% FL: 5.9 cm 30 weeks 6 days , less than 3% EFW:2017.3 grams; 4 lbs. 7 oz., 26% FL/AC: 20.3 FL/BPD: 71.1 HC/AC: 1.0 GESTATIONAL AGE: Age by EDC: 33 weeks 1 days Age by current US: 32 weeks 6 days DARON by current US: 12/26/2023 DARON by EDC: 12/24/2023 US/US OB growth IMPRESSION: Femur length less than the 3rd percentile, otherwise normal intervalgrowth *Reference: [employer] Practice Guideline for the performance of Obstetric Ultrasound Examinations, July 15, 2007. Electronically authenticated by: MERNA SILVA Date: 11/06/2023 11:20 Dictated By: Merna Silva M.D. Signed By:11/06/23 1123 DD/ 1120 TD/TT: Relocation Coordinator: us Rashaun Amadro DO [facility] Final Result documented in this encounter Visit Diagnoses Not on filedocumented in this encounter Additional Health Concerns Active Problems Noted Date Diagnosed Date OB Reminders 07/17/2023 documented as of this encounter
--- OUTSIDE RECORDS SUMMARY | 2025-04-08 12:26 | XMS_ITS | Encounter Summary ---
Author Organization [facility] Address [address] [place] [address] Care Team Providers Care Associate Director Of Sales Name Role Phone Unavailable Primary Care Provider Unavailabl e Encounter Details Date Type Department Care Team (Late st Contact Info) Description 08/08/2023 Abstract [facility] OB [address] [facility] [address] Rashaun Amador DO [address] [facility] [address] Eugene Lopez, [facility]11 Social History Tobacco Use Types Packs/Day Years [...] 04/22/2025 8:30 AM EDT Office Visit [facility] OB [address] [facility] [address] [address] Michelle Vogel PA [address] [facility] [address] [place], [facility]11 05/27/2025 8:30 AM EDT Office Visit [facility] OB [address] [facility] [place] [address] Michelle Vogel PA [address] [facility] [place] [address] documented as of this encounter Goals Goal Patient Goal Type Associated Problems Recent Progress Patient-Stated? Author Reminders Care Plan OB Reminders No Open Scheduling, Background documented as of this encounter Visit Diagnoses Not on filedocumented in this encounter Additional Health Concerns Active Problems Noted Date Diagnosed Date OB Reminders 07/17/2023 documented as of this encounter
--- OUTSIDE RECORDS SUMMARY | 2025-04-08 12:26 | XMS_ITS | Encounter Summary ---
Author Organization [facility] Address [address] [place] [address] Care Team Providers Care Automotive Professional Name Role Phone Unavailable Primary Care Provider Unavailabl e Encounter Details Date Type Department Care Team (Late st Contact Info) Description 07/04/2023 Abstract [facility] OB [address] [facility] [place] [address] Rashaun Amador DO [address] [place] [address] Dr Eugene Lopez, [facility]11 Social History Tobacco Use Types Packs/Day [...] 04/22/2025 8:30 AM EDT Office Visit [facility] [address] [facility] [address] Michelle Vogel PA [facility] [place] [address] 05/27/2025 8:30 AM EDT Office Visit [facility] OB [address] [facility] [place] [address] Michelle Vogel PA [address] [facility] [address] [place], [facility]11 documented as of this encounter Visit Diagnoses Not on filedocumented in this encounter
--- OUTSIDE RECORDS SUMMARY | 2025-04-08 12:26 | XMS_ITS | Encounter Summary ---
Author Organization [facility] Address [address] [place] [address] Care Team Providers Care Pig Machine Crane Operator Name Role Phone Unavailable Primary Care Provider Unavailabl e Encounter Details Date Type Department Care Team (Late st Contact Info) Description 11/06/2024 Abstract [facility] OB [address] [facility] [place] [address] Rashaun Amador DO [address] [place] [address] Dr Eugene Lopez, [facility]11 Social History Tobacco Use Types Packs/Day [...] 04/22/2025 8:30 AM EDT Office Visit [facility] OB [address] [facility] [place] [address] Michelle Vogel PA [facility] [place] [address] 05/27/2025 8:30 AM EDT Office Visit [facility] OB [address] [facility] [place] [address] Michelle Vogel PA [address] [facility] [address] [place], [facility]11 documented as of this encounter Goals Goal Patient Goal Type Associated Problems Recent Progress Patient-Stated? Author Reminders Care Plan OB Reminders No Open Scheduling, Background documented as of this encounter Visit Diagnoses Not on filedocumented in this encounter Additional Health Concerns Active Problems Noted Date Diagnosed Date OB Reminders 07/17/2023 documented as of this encounter
--- OUTSIDE RECORDS SUMMARY | 2025-04-08 12:26 | XMS_ITS | Encounter Summary ---
Author Organization [facility] Address [address] [place] [address] Care Team Providers Care Plastic Cutter Name Role Phone Unavailable Primary Care Provider Unavailabl e Encounter Details Date Type Department Care Team (Late st Contact Info) Description 10/10/2023 Clinisync Result Encounter [facility] External Department Unsolicited Rashaun Amador DO [address] [facility] [address] Eugene Lopez, [facility]11 Social History Tobacco Use Types Packs/Day [...] 04/22/2025 8:30 AM EDT Office Visit [facility] OB [address] [facility] [address] Michelle Vogel PA [address] [place], [place] [address] 05/27/2025 8:30 AM EDT Office Visit [facility] OB [address] [place] [address] Michelle Vogel, PA [address] [facility] [address] [place], [facility]11 documented as of this encounter Goals Goal Patient Goal Type Associated Problems Recent Progress Patient-Stated? Author Reminders Care Plan OB Reminders No Open Scheduling, Background documented as of this encounter Procedures Procedure Name Priority Date/Time Associated Diagnosis Comments US OB BPP W NON-STRESS 10/10/2023 3:32 PM EST documented in this encounter Results * US OB BPP W NON-STRESS (10/10/2023 3:32 PM EST) Anatomical Region Laterality Modality Other 10/10/2023 3:32 PM EST Narrative 10/10/2023 3:34 [place] [address] Ultrasound Report Signed Patient: DEANDRA MOCTEZUMA MR#: [id number] : 1995 Acct:[id number] Age/Sex: 27 / F ADM Date: Loc: [facility] 250- Attending Dr: Rashaun Amador D.O. Ordering Physician: Rashaun Amador D.O. Date of Service: 10/10/23 Procedure(s): US OB BPP w non-stress Accession Number(s): [id number] cc: Rashaun Amador D.O.; Physician,Non-Staff M.DPatricia The [address] [address] Patient Name: DEANDRA MOCTEZUMA MRN: [id number] date: 1995 Sex: F Assigned Patient Location: [facility] Current Patient Location: [facility] Accession/Order Number: [id number] Exam Date: 10/10/2023 15:11 Report Date: 10/10/2023 15:32 At the request of: RASHAUN AMADOR Procedure: US OB BPP w non-stress EXAMINATION: US OB BPP w non-stress HISTORY: decreased movement COMPARISON: Ultrasound OB growth 10/03/2023 TECHNIQUE: Ultrasound biophysical profile was performed in the radiology department. BREATHING MOVEMENTS: 2.0 GROSS BODY MOVEMENTS: 2.0 TONE: 2.0 QUALITATIVE AMNIOTIC FLUID VOLUME: 2.0 PRESENTATION: CEPHALIC HEART RATE: 137.8 bpm bpm. AMNIOTIC FLUID VOLUME: 11.7 cm GESTATIONAL AGE: 29 weeks 3 days CONCLUSION: Total biophysical profile score 8.0. Electronically authenticated by: HUDSON ASIF Date: 10/10/2023 15:32 Dictated By: Hudson Asif M.D. Signed By: 10/10/23 1534 DD/ 1532 TD/TT: Puppy Trainer: Procedure Note Radiology, Radiologist, MD - 10/10/2023 [place] [address] Ultrasound Report Signed Patient: DEANDRA MOCTEZUMA DMR#: [id number] : 1995Acct:[id number] Age/Sex: 27 FADM Date: Loc: [facility] 250-[address]: Rashaun Amador D.O. Ordering Physician: Rashaun Amador D.O. Date of Service: 10/10/23 Procedure(s): US OB BPP w non-stress Accession Number(s): [id number] cc: Rashaun Amador D.O.; Physician,Non-Staff Daniel The [place] [id number] Patient Name: DEANDRA MOCTEZUMA MRN: [id number] date: 1995 Sex: F Assigned Patient Location: [facility] Current Patient Location: [facility] Accession/Order Number: [id number] Exam Date: 10/10/2023 15:11 Report Date: 10/10/2023 15:32 At the request of: RASHAUN AMADOR Procedure: US OB BPP w non-stress EXAMINATION: US OB BPP w non-stress HISTORY: decreased movement COMPARISON: Ultrasound OB growth 10/03/2023 TECHNIQUE: Ultrasound biophysical profile was performed in the radiology department. BREATHING MOVEMENTS: 2.0 GROSS BODY MOVEMENTS: 2.0 TONE: 2.0 QUALITATIVE AMNIOTIC FLUID VOLUME: 2.0 PRESENTATION: CEPHALIC HEART RATE: 137.8 bpm bpm. AMNIOTIC FLUID VOLUME: 11.7 cm GESTATIONAL AGE: 29 weeks 3 days CONCLUSION: Total biophysical profile score 8.0. Electronically authenticated by: HUDSON ASIF Date: 10/10/2023 15:32 Dictated By: Hudson Asif M.D. Signed By:10/10/23 1534 DD/ 1532 TD/TT: Puppy Trainer: us Rashaun Perry DO [facility] Final Result documented in this encounter Visit Diagnoses Not on filedocumented in this encounter Additional Health Concerns Active Problems Noted Date Diagnosed Date OB Reminders 07/17/2023 documented as of this encounter
--- OUTSIDE RECORDS SUMMARY | 2025-04-08 12:26 | XMS_ITS | Clinical Summary ---
Author Organization [facility] Address [address] [place] [address] Care Team Providers Care Other Wood Processing Machine Operator Name Role Phone Thang Millan APRN - KRISTEL Primary Care Provide r Allergies Active Allergy Reactions Criticality Noted Date Comments Amoxicillin 08/09/2020 Penicillins 08/09/2020 Medications DULoxetine (CYMBALTA) 20 MG extended release capsule Take 20 mg by mouth daily Active omeprazole (PRILOSEC) 10 MG delayed release capsule Take 10 mg by mouth daily Active naproxen (NAPROSYN) 500 MG tablet Take 1 tablet by mouth 2 times daily (with meals) for 30 doses 60 tablet 08/09/2020 Active tiZANidine (ZANAFLEX) 4 MG tablet Take 1 tablet by mouth every 8 hours as needed (Shoulder pain) 12 tablet 08/09/2020 Active Social History Tobacco Use Types Packs/Day Years Used Date Smoking Tobacco: Every Day Cigarettes Smokeless Tobacco: Never Alcohol Use Standard Drinks/Week Comments Never 0 (1 standard drink = 0.6 oz pur e alcohol) AUDIT-C Answer Date Recorded Q1: How often do you have a drink containing alc ohol? Never 08/09/2020 Average Number of Drinks Not on file 020 Frequency of Binge Drinking Not on file 07/16 Comments No Sex and Gender Information Value Date Recorded Sex Assigned at Not on file Legal Sex Female 4:05 PM EST Gender Identity Not on file Sexual Orientation Not on file Last Filed Vital Signs Vital Sign Reading Time Taken Comments Blood Pressure 122/81 08/09/2020 8:33 PM EDT Pulse 78 08/09/2020 8:33 PM EDT Temperature 36.8 C (98.3 F) 08/09/2020 7:03 PM EDT Respiratory Rate 16 08/09/2020 8:33 PM EDT Oxygen Saturation 98% 08/09/2020 7:03 PM EDT Inhaled Oxygen Concentration - - Weight 104.3 kg (230 lb) 08/09/2020 7:03 PM EDT Height 162.6 cm (5' 4 ) 08/09/2020 7:03 PM EDT Body Mass Index 39.48 08/09/2020 7:03 PM EDT Plan of Treatment Not on file [place] [address] Care Teams Other Wood Processing Machine Operator Relationship Specialty Start Date End Date Thang Millan APRN - NP PCP - General 08/09/20
--- OUTSIDE RECORDS SUMMARY | 2025-04-08 12:26 | XMS_ITS | Encounter Summary ---
Author Organization [facility] Address [address] [place] [address] Care Team Providers Care Fast Food Crew Lead Name Role Phone Unavailable Primary Care Provider Unavailabl e Encounter Details Date Type Department Care Team (Late st Contact Info) Description 10/30/2023 Clinisync Result Encounter [facility] External Department Unsolicited Rashaun Amador DO [address] [facility] [address] Eugene Lopez, [facility]11 Social History Tobacco Use Types Packs/Day Years [...] 04/22/2025 8:30 AM EDT Office Visit [facility] OB [address] [facility] [place] [address] Michelle Vogel PA [address] [place], [place] [address] 05/27/2025 8:30 AM EDT Office Visit [facility] OB [address] [facility] [place] [address] Michelle Vogel, PA [address] [facility] [address] [place], [facility]11 documented as of this encounter Goals Goal Patient Goal Type Associated Problems Recent Progress Patient-Stated? Author Reminders Care Plan OB Reminders No Open Scheduling, Background documented as of this encounter Procedures Procedure Name Priority Date/Time Associated Diagnosis Comments US OB BPP W NON-STRESS 10/30/2023 8:52 AM EST documented in this encounter Results * US OB BPP W NON-STRESS (10/30/2023 8:52 AM EST) Anatomical Region Laterality Modality Other 10/30/2023 8:52 AM EST Narrative 10/30/2023 8:54 [place] [address] Ultrasound Report Signed Patient: DEANDRA MOCTEZUMA MR#: [id number] : 1995 Acct:[id number] Age/Sex: 28 / F ADM Date: 10/30/23 Loc: US Attending Dr: Rashaun Amador D.O. Ordering Physician: Rashaun Amador D.O. Date of Service: 10/30/23 Procedure(s): US OB BPP w non-stress Accession Number(s): [id number] cc: Rashaun Amador D.O.; Physician,Non-Staff M.DPatricia The [place] [id number] Patient Name: DEANDRA MOCTEZUMA MRN: [id number] date: 1995 Sex: F Assigned Patient Location: [facility] Current Patient Location: Accession/Order Number: [id number] Exam Date: 10/30/2023 08:10 Report Date: 10/30/2023 08:52 At the request of: RASHAUN AMADOR Procedure: US OB BPP w non-stress EXAMINATION: US OB BPP w non-stress HISTORY: Maternal thyroid disorder COMPARISON: 10/10/2023 TECHNIQUE: Ultrasound biophysical profile was performed in the radiology department. non-reactive stress testing was performed by nursing staff in the birthing center. FINDINGS: BREATHING MOVEMENTS: 2.0 GROSS BODY MOVEMENTS: 2.0 TONE: 2.0 QUALITATIVE AMNIOTIC FLUID VOLUME: 2.0 PRESENTATION: CEPHALIC HEART RATE: 134.3 bpm H.B./min AMNIOTIC FLUID VOLUME: 15.8 cm cm GESTATIONAL AGE: 32 weeks 1 days CONCLUSION: Total biophysical profile score: 8.0 Electronically authenticated by: MERNA SILVA Date: 10/30/2023 08:52 Dictated By: Merna Silva M.D. Signed By: 10/30/23 0854 DD/ TD/TT: Toll Line Repairer: Procedure Note Radiology, Radiologist, MD - 12/19/2023 [place] [address] Ultrasound Report Signed Patient: DEANDRA MOCTEZUMA DMR#: [id number] : 1995Acct:[id number] Age/Sex: 28 / FADM Date: 10/30/23 Loc: US Attending Dr: Rashaun Amador D.O. Ordering Physician: Rashaun Amador D.O. Date of Service: 10/30/23 Procedure(s): US OB BPP w non-stress Accession Number(s): [id number] cc: Rashaun Amador D.O.; Physician,Non-Staff Daniel The [place] [id number] Patient Name: DEANDRA MOCTEZUMA MRN: [id number] date: 1995 Sex: F Assigned Patient Location: [facility] Current Patient Location: Accession/Order Number: [id number] Exam Date: 10/30/2023 08:10 Report Date: 10/30/2023 08:52 At the request of: RASHAUN AMADOR Procedure: US OB BPP w non-stress EXAMINATION: US OB BPP w non-stress HISTORY: Maternal thyroid disorder COMPARISON: 10/10/2023 TECHNIQUE: Ultrasound biophysical profile was performed in the radiology department. non-reactive stress testing was performed by nursingstaff in the birthing center. FINDINGS: BREATHING MOVEMENTS: 2.0 GROSS BODY MOVEMENTS: 2.0 TONE: 2.0 QUALITATIVE AMNIOTIC FLUID VOLUME: 2.0 PRESENTATION: CEPHALIC HEART RATE: 134.3 bpm H.B./min AMNIOTIC FLUID VOLUME: 15.8 cm cm GESTATIONAL AGE: 32 weeks 1 days CONCLUSION: Total biophysical profile score: 8.0 Electronically authenticated by: MERNA SILVA Date: 10/30/2023 08:52 Dictated By: Merna Silva M.D. Signed By:10/30/23 0854 DD/ 0852 TD/TT: Toll Line Repairer: us Rashaun Amador DO [facility] Final Result documented in this encounter Visit Diagnoses Not on filedocumented in this encounter Additional Health Concerns Active Problems Noted Date Diagnosed Date OB Reminders 07/17/2023 documented as of this encounter
--- OUTSIDE RECORDS SUMMARY | 2025-04-08 12:26 | XMS_ITS | Encounter Summary ---
Author Organization [facility] Address [address] [place] [address] Care Team Providers Care Ballistics Expert Forensic Name Role Phone Unavailable Primary Care Provider Unavailabl e Encounter Details Date Type Department Care Team (Late st Contact Info) Description 09/09/2024 Abstract [facility] OB [address] [facility] [place] [address] Rashaun Amador DO [address] [place] [address] Dr Eugene Lopez, [facility]11 Social History Tobacco Use Types Packs/Day Years [...] 04/22/2025 8:30 AM EDT Office Visit [facility] [address] [facility] [address] Michelle Vogel PA [address] [place] [address] 05/27/2025 8:30 AM EDT Office Visit [facility] OB [address] [facility] [place] [address] Michelle Vogel PA [address] [facility] [address] [place], [facility]11 documented as of this encounter Goals Goal Patient Goal Type Associated Problems Recent Progress Patient-Stated? Author Reminders Care Plan OB Reminders No Open Scheduling, Background documented as of this encounter Visit Diagnoses Not on filedocumented in this encounter Additional Health Concerns Active Problems Noted Date Diagnosed Date OB Reminders 07/17/2023 documented as of this encounter
--- OUTSIDE RECORDS SUMMARY | 2025-04-08 12:26 | XMS_ITS | Encounter Summary ---
Author Organization [facility] Address [address] [place] [address] Care Team Providers Care General Laborer Name Role Phone Unavailable Primary Care Provider Unavailabl e Encounter Details Date Type Department Care Team (Late st Contact Info) Description 12/05/2023 Abstract [facility] OB [address] [place] [address] Rashaun Amador DO [address] [place] [address] Dr Euegne Lopez, [facility]11 Social History Tobacco Use Types Packs/Day [...] 04/22/2025 8:30 AM EDT Office Visit [facility] OB [address] [facility] [address] Michelle Vogel PA [facility] [place] [address] 05/27/2025 8:30 AM EDT Office Visit [facility] OB [address] [place], [place] [address] [address] Michelle Vogel PA [address] [facility] [address] [place], [facility]11 documented as of this encounter Goals Goal Patient Goal Type Associated Problems Recent Progress Patient-Stated? Author Reminders Care Plan OB Reminders No Open Scheduling, Background documented as of this encounter Visit Diagnoses Not on filedocumented in this encounter Additional Health Concerns Active Problems Noted Date Diagnosed Date OB Reminders 07/17/2023 documented as of this encounter
--- OUTSIDE RECORDS SUMMARY | 2025-04-08 12:26 | XMS_ITS | Clinical Summary ---
Author Organization [facility] Address [address] [place], [place] [id number] Care Team Providers Care Clutch Specialist Name Role Phone Thang Millan ALLISON Primary Care Provider [phone] Allergies Active Allergy Reactions Criticality Noted Date Comments Penicillins Rash 03/10/2021 Medications amitriptyline (ELAVIL) 10 mg tablet Take 1 tab at bed x 1 week, then take 2 tabs at bed x 1 week, then 3 tabs at bed and continue this dose 90 tablet 3 04/01/20 21 Active rizatriptan (MAXALT-METEOROLOGICAL EQUIPMENT REPAIRER) 10 mg disintegrating tablet Take 1 tablet by mouth as needed for Migraine Headache (see administration instructions). AT ONSET OF HEADACHE. MAY REPEAT AFTER 2 HOURS. DO NOT EXCEED 30 MG PER DAY. 10 tablet 3 04/01/20 21 Active Active Problems No known active problems Family History Medical History Relation Comments Psoriasis Brother Colon Polyps Maternal Grandfather Colon Polyps Maternal Grandmother Psoriasis Mother Celiac Disease No Family History Colon Cancer No Family History Crohn's Disease No Family History Pancreatic Cancer No Family History Pancreatitis No Family History Ulcerative Colitis No Family History Relation Status Comments Brother Maternal Grandfather Maternal Grandmother Mother Social History Tobacco Use Types Packs/Day Years Used Date Smoking Tobacco: Every Day Cigarettes 0.5 13 Smokeless Tobacco: Never Comments:1/2 pk a day Alcohol Use Standard Drinks/Week Comments Not Currently 0 (1 standard drink = 0.6 oz pur e alcohol) PHQ-2 Answer Date Recorded PHQ-2 score 2 04/01/2021 Area Deprivation Index Answer Date José Manuel rded National Score (1-100), lower number is lower ri sk Not on file 03/10/2021 State Score (1-10), lower number is lower risk N ot on file 03/10/2021 Data from: https://www.neighborhoodatlas.medicine.[facility].edu/. Last address used for calculation Not on file 03/10/2021 Comments No Sex and Gender Information Value Date Recorded Sex Assigned at Not on file Legal Sex Female 12:04 PM EDT Gender Identity Not on file Sexual Orientation Not on file Last Filed Vital Signs Vital Sign Reading Time Taken Comments Blood Pressure 111/67 04/01/2021 7:54 AM EDT Pulse 72 04/01/2021 7:54 AM EDT Temperature - - Respiratory Rate - - Oxygen Saturation - - Inhaled Oxygen Concentration - - Weight 70.9 kg (156 lb 4.9 oz) 04/01/2021 7:54 A M EDT Height 162.6 cm (5' 4 ) 04/01/2021 7:54 AM EDT Body Mass Index 26.83 04/01/2021 7:54 AM EDT Plan of Treatment Health Maintenance Due Date Last Done Comments Anxiety Screening 2011 Depression Screening 2011 HIV Screening 2011 Hepatitis C Screening 2011 Hepatitis B Vaccine (1 of 3 - 19+ 3-dose series) 2012 Cervical Cancer Screening 2014 Covid-19 Vaccine (2023-2 5 season) 2024 01/28/2021, 12/31/2020, 10/30/2020 Influenza Vaccine (Season Ended) 2025 08/31/20, 07/23/2019 DTaP,Tdap,Td Vaccine (2 - Td or Tdap) 05/12/2028 05/12/2018 Insurance [facility] MED[facility] Care Teams Clutch Specialist Relationship Specialty Start Date End Date Thang Millan CNP [address] [place] [id number] PCP - General Emergency Medicine 03/10/21
--- OUTSIDE RECORDS SUMMARY | 2025-04-08 12:26 | XMS_ITS | Encounter Summary ---
Author Organization [facility] Address [address] [place] [address] Care Team Providers Care Consumer Banker Name Role Phone Unavailable Primary Care Provider Unavailabl e Encounter Details Date Type Department Care Team (Late st Contact Info) Description 10/02/2024 Clinisync Result Encounter [facility] External Department Unsolicited Rashaun Amador DO [address] [facility] [address] Eugene Lopez, [facility]11 Social History Tobacco Use Types [...] 04/22/2025 8:30 AM EDT Office Visit [facility] OB [address] [facility] [place] [address] Michelle Vogel PA [address] [place], [place] [address] 05/27/2025 8:30 AM EDT Office Visit [facility] OB [address] [facility] [place] [address] Michelle Vogel, PA [address] [facility] [address] [place], [facility]11 documented as of this encounter Goals Goal Patient Goal Type Associated Problems Recent Progress Patient-Stated? Author Reminders Care Plan OB Reminders No Open Scheduling, Background documented as of this encounter Procedures Procedure Name Priority Date/Time Associated Diagnosis Comments US PELVIS W/ TRANSVAGINAL 10/02/2024 9:42 AM EST documented in this encounter Results * US PELVIS W/ TRANSVAGINAL (10/02/2024 9:42 AM EST) Anatomical Region Laterality Modality Other 10/02/2024 9:42 AM EST Narrative 10/02/2024 9:44 [place] [address] Ultrasound Report Signed Patient: DEANDRA MOCTEZUMA MR#: [id number] : 1995 Acct:[id number] Age/Sex: 28 / F ADM Date: 10/02/24 Loc: US Attending Dr: Rashaun Amador D.O. Ordering Physician: Rashaun Amador D.O. Date of Service: 10/02/24 Procedure(s): US pelvis w/ transvaginal Accession Number(s): [id number] cc: Rashaun Amador D.O.; Physician,Non-Staff M.DPatricia The [address] [address] Patient Name: DEANDRA MOCTEZUMA MRN: [id number] date: 1995 Sex: F Assigned Patient Location: US Current Patient Location: US Accession/Order Number: [id number] Exam Date: 10/02/2024 07:22 Report Date: 10/02/2024 09:42 At the request of: RASHAUN AMADOR Procedure: US pelvis w/ transvaginal EXAMINATION: US pelvis w/ transvaginal HISTORY: Heavy cycles COMPARISON: No relevant comparison available. FINDINGS: The uterus is normal in size, contour and echotexture measuring 8.8 x 5.5 x 4.9 cm. No focal myometrial mass. The endometrium measures 1.4 cm, correlate with the menstrual cycle The right ovary is normal measuring 4.6 x 2.9 x 2.4 cm. Normal color and Doppler flow The left ovary is normal measuring 2.0 x 2.0 x 1.9 cm. Normal color and Doppler flow No free fluid US/US pelvis w/ transvaginal IMPRESSION: Normal exam. Electronically authenticated by: EMRNA SILVA Date: 10/02/2024 09:42 Dictated By: Merna Silva M.D. Signed By: 10/02/2444 DD/ 1 TD/TT: Packing Machine Tender: Procedure Note Radiology, Radiologist, MD - 10/02/2024 [place] [address] Ultrasound Report Signed Patient: DEANDRA MOCTEZUMA DMR#: [id number] : 1995Acct:[id number] Age/Sex: 28 / FADM Date: 10/02/24 Loc: US Attending Dr: Rashaun Amador D.O. Ordering Physician: Rashaun Amador D.O. Date of Service: 10/02/24 Procedure(s): US pelvis w/ transvaginal Accession Number(s): [id number] cc: Rashaun Amador D.O.; Physician,Non-Staff Daniel The [place] [id number] Patient Name: DEANDRA MOCTEZUMA MRN: [id number] date: 1995 Sex: F Assigned Patient Location: US Current Patient Location: US Accession/Order Number: [id number] Exam Date: 10/02/2024 07:22 Report Date: 10/02/2024 09:42 At the request of: RASHAUN AMADOR Procedure: US pelvis w/ transvaginal EXAMINATION: US pelvis w/ transvaginal HISTORY: Heavy cycles COMPARISON: No relevant comparison available. FINDINGS: The uterus is normal in size, contour and echotexture measuring 8.8 x 5.5x 4.9 cm. No focal myometrial mass. The endometrium measures 1.4 cm, correlate with the menstrual cycle The right ovary is normal measuring 4.6 x 2.9 x 2.4 cm. Normal color and Doppler flow The left ovary is normal measuring 2.0 x 2.0 x 1.9 cm. Normal color and Doppler flow No free fluid US/US pelvis w/ transvaginal IMPRESSION: Normal exam. Electronically authenticated by: MERNA SILVA Date: 10/02/2024 09:42 Dictated By: Merna Silva M.D. Signed By:10/02/2444 DD/ 1 TD/TT: Packing Machine Tender: us Rashaun Perry DO [facility] Final Result documented in this encounter Visit Diagnoses Not on filedocumented in this encounter Additional Health Concerns Active Problems Noted Date Diagnosed Date OB Reminders 07/17/2023 documented as of this encounter
--- OUTSIDE RECORDS SUMMARY | 2025-04-08 12:26 | XMS_ITS | Encounter Summary ---
Author Organization [facility] Address [address] [place] [address] Care Team Providers Care Senior Php Web Developer Name Role Phone Unavailable Primary Care Provider Unavailabl e Encounter Details Date Type Department Care Team (Late st Contact Info) Description 09/03/2023 Clinisync Result Encounter [facility] External Department Unsolicited Rashaun Amador DO [address] [facility] [address] Eugene Lopez, [facility]11 Social History Tobacco Use Types Packs/Day [...] [address] [facility] [place] [id number] Michelle Vogel PA [address] [facility] [place] [address] 05/27/2025 8:30 AM EDT Office Visit [facility] OB [address] [place] [address] Michelle Vogel PA [address] [facility] [address] [place], [facility]11 documented as of this encounter Goals Goal Patient Goal Type Associated Problems Recent Progress Patient-Stated? Author Reminders Care Plan OB Reminders No Open Scheduling, Background documented as of this encounter Procedures Procedure Name Priority Date/Time Associated Diagnosis Comments US OB GROWTH 09/03/2023 9:34 PM EST documented in this encounter Results * US OB GROWTH (09/03/2023 9:34 PM EST) Anatomical Region Laterality Modality Other 09/03/2023 9:34 PM EST Narrative 09/03/2023 9:34 PM EST The [address] [address] Ultrasound Report Signed Patient: DEANDRA MOCTEZUMA MR#: [id number] : 1995 Acct:[id number] Age/Sex: 27 / F ADM Date: 09/03/23 Loc: US Attending Dr: Rashaun Amador D.O. Ordering Physician: Rashaun Amador D.O. Date of Service: 09/03/23 Procedure(s): US OB growth Accession Number(s): [id number] cc: Rashaun Amador D.O.; Physician,Non-Staff M.D. The [address] [address] Patient Name: DEANDRA MOCTEZUMA MRN: [id number] date: 1995 Sex: F Assigned Patient Location: US Current Patient Location: US Accession/Order Number: [id number] Exam Date: 09/03/2023 11:08 Report Date: 09/03/2023 21:34 At the request of: RASHAUN AMADOR Procedure: US OB growth EXAMINATION: US OB growth HISTORY: Second Trimester Z34.92 COMPARISON: Ultrasound OB anatomy 08/06/2023 FINDINGS: Heart Rate: 140.6 bpm Number: 1.0 Position: Cephalic Amniotic Fluid Volume: 15.3 cm Maximum Vertical Pocket: 4.3 cm BIOMETRY: BPD: 6.1 cm cm; 24 weeks 6 days; 75% HC: 22.6 cmcm; 24 weeks 4 days ; 55% AC: 20.0 cm cm; 24 weeks 4 days; 61% FL: 3.8 cm cm; 22 weeks 1 days; 3% EFW: 617.4 grams; 27% FL/AC: 18.9 FL/BPD: 61.7 HC/AC: 1.1 GESTATIONAL AGE: Age by EDC: 24 weeks 0 days DARON by EDC: 12/24/2023 Age by US: 24 weeks 0 days DARON by US: 12/24/2023 US/US OB growth IMPRESSION: 1. Single live intrauterine with growth detailed above. 2. Femur length is < 3rd percentile. Electronically authenticated by: HUDSON ASIF Date: 09/03/2023 21:34 Dictated By: Hudson Asif M.D. Signed By: 09/03/232136 DD/ 33 TD/TT: Shed Workers Supervisor: Procedure Note Radiology, Radiologist, MD - 09/04/2023 [place] [address] Ultrasound Report Signed Patient: DEANDRA MOCTEZUMA DMR#: [id number] : 1995Acct:[id number] Age/Sex: 27 / FADM Date: 09/03/23 Loc: US Attending Dr: Rashaun Amador D.O. Ordering Physician: Rashaun Amador D.O. Date of Service: 09/03/23 Procedure(s): US OB growth Accession Number(s): [id number] cc: Rashaun Amador D.O.; Physician,Non-Staff Daniel The [address] [address] Patient Name: DEANDRA MOCTEZUMA MRN: [id number] date: 1995 Sex: F Assigned Patient Location: US Current Patient Location: US Accession/Order Number: [id number] Exam Date: 09/03/2023 11:08 Report Date: 09/03/2023 21:34 At the request of: RASHAUN AMADOR Procedure: US OB growth EXAMINATION: US OB growth HISTORY: Second Trimester Z34.92 COMPARISON: Ultrasound OB anatomy 08/06/2023 FINDINGS: Heart Rate: 140.6 bpm Number: 1.0 Position: Cephalic Amniotic Fluid Volume: 15.3 cm Maximum Vertical Pocket: 4.3 cm BIOMETRY: BPD: 6.1 cm cm; 24 weeks 6 days; 75% HC: 22.6 cmcm; 24 weeks 4 days ; 55% AC: 20.0 cm cm; 24 weeks 4 days; 61% FL: 3.8 cm cm; 22 weeks 1 days; 3% EFW: 617.4 grams; 27% FL/AC: 18.9 FL/BPD: 61.7 HC/AC: 1.1 GESTATIONAL AGE: Age by EDC: 24 weeks 0 days DARON by EDC: 12/24/2023 Age by US: 24 weeks 0 days DARON by US: 12/24/2023 US/US OB growth IMPRESSION: 1. Single live intrauterine with growth detailed above. 2. Femur length is < 3rd percentile. Electronically authenticated by: HUDSON ASIF Date: 09/03/2023 21:34 Dictated By: Hudson Asif M.D. Signed By:09/03/232136 DD/ 33 TD/TT: Shed Workers Supervisor: us Rashaun Amador DO [facility] Final Result documented in this encounter Visit Diagnoses Not on filedocumented in this encounter Additional Health Concerns Active Problems Noted Date Diagnosed Date OB Reminders 07/17/2023 documented as of this encounter
--- OUTSIDE RECORDS SUMMARY | 2025-04-08 12:26 | XMS_ITS | Encounter Summary ---
Author Organization [facility] Address [address] [place] [address] Care Team Providers Care Rural Health Consultant Name Role Phone Unavailable Primary Care Provider Unavailabl e Encounter Details Date Type Department Care Team (Late st Contact Info) Description 11/06/2023 Clinisync Result Encounter [facility] External Department Unsolicited Rashaun Amador DO [address] [facility] [address] Eugene Lopez, [facility] Social History Tobacco Use Types Packs/Day Years [...] 04/22/2025 8:30 AM EDT Office Visit [facility] OB [address] [facility] [place] [address] Michelle Vogel PA [address] [place], [place] [address] 05/27/2025 8:30 AM EDT Office Visit [facility] OB [address] [facility] [place] [address] Michelle Vogel, PA [address] [place], [facility] documented as of this encounter Goals Goal Patient Goal Type Associated Problems Recent Progress Patient-Stated? Author Reminders Care Plan OB Reminders No Open Scheduling, Background documented as of this encounter Procedures Procedure Name Priority Date/Time Associated Diagnosis Comments US OB BPP W NON-STRESS 11/06/2023 4:14 PM EST documented in this encounter Results * US OB BPP W NON-STRESS (11/06/2023 4:14 PM EST) Anatomical Region Laterality Modality Other 11/06/2023 4:14 PM EST Narrative 11/06/2023 4:16 [place] [address] Ultrasound Report Signed Patient: DEANDRA MOCTEZUMA MR#: [id number] : 1995 Acct:[id number] Age/Sex: 28 / F ADM Date: 11/06/23 Loc: [place] [address]: Rashaun Amador D.O. Ordering Physician: Rashaun Amador D.O. Date of Service: 11/06/23 Procedure(s): US OB BPP w non-stress Accession Number(s): [id number] cc: Rashaun Amador D.O.; Physician,Non-Staff M.DPatricia The [address] [address] Patient Name: DEANDRA MOCTEZUMA MRN: [id number] date: 1995 Sex: F Assigned Patient Location: [facility] Current Patient Location: [facility] Accession/Order Number: [id number] Exam Date: 11/06/2023 15:30 Report Date: 11/06/2023 16:14 At the request of: RASHAUN AMADOR Procedure: US OB BPP w non-stress EXAMINATION: US OB BPP w non-stress HISTORY: Excessive growth COMPARISON: No relevant comparison available. TECHNIQUE: Ultrasound biophysical profile was performed in the radiology department. FINDINGS: BREATHING MOVEMENTS: 2.0 GROSS BODY MOVEMENTS: 2.0 TONE: 2.0 QUALITATIVE AMNIOTIC FLUID VOLUME: 2.0 PRESENTATION: CEPHALIC HEART RATE: 136.4 bpm H.B./min AMNIOTIC FLUID VOLUME: 16.9 cm cm GESTATIONAL AGE: 33 weeks 1 days CONCLUSION: Total biophysical profile score: 8.0 Electronically authenticated by: MERNA SILVA Date: 11/06/2023 16:14 Dictated By: Merna Silva M.D. Signed By: 11/06/231615 DD/ 13 TD/TT: Slabber: Procedure Note Radiology, Radiologist, MD - 12/19/2023 [place] [address] Ultrasound Report Signed Patient: DEANDRA MOCTEZUMA DMR#: [id number] : 1995Acct:[id number] Age/Sex: 28 / FADM Date: 11/06/23 Loc: [facility] 250-[address]: Rashaun Amador D.O. Ordering Physician: Rashaun Amador D.O. Date of Service: 11/06/23 Procedure(s): US OB BPP w non-stress Accession Number(s): [id number] cc: Rashaun Amador D.O.; Physician,Non-Staff Daniel The [place] [address] Patient Name: DEANDRA MOCTEZUMA MRN: [id number] date: 1995 Sex: F Assigned Patient Location: [facility] Current Patient Location: [facility] Accession/Order Number: [id number] Exam Date: 11/06/2023 15:30 Report Date: 11/06/2023 16:14 At the request of: RASHAUN AMADOR Procedure: US OB BPP w non-stress EXAMINATION: US OB BPP w non-stress HISTORY: Excessive growth COMPARISON: No relevant comparison available. TECHNIQUE: Ultrasound biophysical profile was performed in the radiology department. FINDINGS: BREATHING MOVEMENTS: 2.0 GROSS BODY MOVEMENTS: 2.0 TONE: 2.0 QUALITATIVE AMNIOTIC FLUID VOLUME: 2.0 PRESENTATION: CEPHALIC HEART RATE: 136.4 bpm H.B./min AMNIOTIC FLUID VOLUME: 16.9 cm cm GESTATIONAL AGE: 33 weeks 1 days CONCLUSION: Total biophysical profile score: 8.0 Electronically authenticated by: MERNA SILVA Date: 11/06/2023 16:14 Dictated By: Merna Silva M.D. Signed By:11/06/23 1616 DD/ 13 TD/TT: Slabber: us Rashaun Perry DO [facility] Final Result documented in this encounter Visit Diagnoses Not on filedocumented in this encounter Additional Health Concerns Active Problems Noted Date Diagnosed Date OB Reminders 07/17/2023 documented as of this encounter
--- OUTSIDE RECORDS SUMMARY | 2025-04-08 12:26 | XMS_ITS | Encounter Summary ---
Author Organization [facility] Address [address] [place] [address] Care Team Providers Care Golf Club Head Inspector And Adjuster Name Role Phone Unavailable Primary Care Provider Unavailabl e Encounter Details Date Type Department Care Team (Late st Contact Info) Description 01/28/2024 Clinisync Result Encounter [facility] External Department Unsolicited Rashaun Amador DO [address] [facility] [address] Eugene Lopez, [facility]11 Social History Tobacco Use Types Packs/Day [...] 04/22/2025 8:30 AM EDT Office Visit [facility] OB [address] [place] [address] Michelle Vogel PA [address] [place], [place] [address] 05/27/2025 8:30 AM EDT Office Visit [facility] OB [address] [facility] [place] [address] Michelle Vogel, PA [address] [facility] [address] [place], [facility]11 documented as of this encounter Goals Goal Patient Goal Type Associated Problems Recent Progress Patient-Stated? Author Reminders Care Plan OB Reminders No Open Scheduling, Background documented as of this encounter Procedures Procedure Name Priority Date/Time Associated Diagnosis Comments XR CHEST 2V 01/28/2024 3:14 PM EDT documented in this encounter Results * XR CHEST 2V (01/28/2024 3:14 PM EDT) Anatomical Region Laterality Modality Other 01/28/2024 3:14 PM EDT Narrative 01/28/2024 3:17 [place] [address] XRay Report Signed Patient: DEANDRA MOCTEZUMA MR#: [id number] : 1995 Acct:[id number] Age/Sex: 28 / F ADM Date: 01/28/24 Loc: [facility] Attending Dr: Rashaun Amador D.O. Ordering Physician: Rashaun Amador D.O. Date of Service: 01/28/24 Procedure(s): XR chest 2V Accession Number(s): [id number] cc: Rashaun Amador D.O.; Physician,Non-Staff M.D. The [place] [address] Patient Name: DEANDRA MOCTEZUMA MRN: [id number] date: 1995 Sex: F Assigned Patient Location: [facility] Current Patient Location: [facility] Accession/Order Number: [id number] Exam Date: 01/28/2024 14:10 Report Date: 01/28/2024 15:14 At the request of: RASHAUN AMADOR Procedure: XR chest 2V EXAM: XR chest 2V HISTORY: Preop exam COMPARISON: None. TECHNIQUE: Upright PA and lateral chest x-ray FINDINGS: The heart is not enlarged and the vasculature is not distended. No acute infiltrate, effusion or pneumothorax is identified. The osseous structures are grossly intact. Surgical clips are seen in the upper abdomen. XR/XR chest 2V IMPRESSION: No acute infiltrate or evidence of cardiac decompensation. Electronically authenticated by: GRACIE MENENDEZ Date: 01/28/2024 15:14 Dictated By: Gracie Menendez M.D. Signed By: 01/28/241516 DD/ 13 TD/TT: Research Librarian: Procedure Note Radiology, Radiologist, - 01/29/2024 [place] [address] XRay Report Signed Patient: DEANDRA MOCTEZUMA DMR#: [id number] : 1995Acct:[id number] Age/Sex: 28 / FADM Date: 01/28/24 Loc: [facility] Attending Dr: Rashaun Amador D.O. Ordering Physician: Rashaun Amador D.O. Date of Service: 01/28/24 Procedure(s): XR chest 2V Accession Number(s): [id number] cc: Rashaun Amador D.O.; Physician,Non-Staff Daniel The [place] [address] Patient Name: DEANDRA MOCTEZUMA MRN: [facility]:[id number] date: 1995 Sex: F Assigned Patient Location: [facility] Current Patient Location: [facility] Accession/Order Number: [id number] Exam Date: 01/28/2024 14:10 Report Date: 01/28/2024 15:14 At the request of: RASHAUN AMADOR Procedure: XR chest 2V EXAM: XR chest 2V HISTORY: Preop exam COMPARISON: None. TECHNIQUE: Upright PA and lateral chest x-ray FINDINGS: The heart is not enlarged and the vasculature is not distended.No acute infiltrate, effusion or pneumothorax is identified. The osseous structures are grossly intact. Surgical clips are seen in the upperabdomen. XR/XR chest 2V IMPRESSION: No acute infiltrate or evidence of cardiac decompensation. Electronically authenticated by: GRACIE MENENDEZ Date: 01/28/2024 15:14 Dictated By: Gracie Menendez M.D. Signed By:01/28/241516 DD/ 13 TD/TT: Research Librarian: us Rashaun Amador DO [facility] Final Result documented in this encounter Visit Diagnoses Not on filedocumented in this encounter Additional Health Concerns Active Problems Noted Date Diagnosed Date OB Reminders 07/17/2023 documented as of this encounter
--- OUTSIDE RECORDS SUMMARY | 2025-04-08 12:27 | XMS_ITS | Encounter Summary ---
Author Organization [facility] Address [address] [place] [address] Care Team Providers Care Presiding Judge Name Role Phone Unavailable Primary Care Provider Unavailabl e Encounter Details Date Type Department Care Team (Late st Contact Info) Description 11/28/2023 Abstract [facility] OB [address] [place] [place] [address] Christy Munguia LPN [address] [place]11 Social History Tobacco Use Types Packs/Day [...] 04/22/2025 8:30 AM EDT Office Visit [facility] OB [address] [place] [place] [address] Michelle Vogel PA [address] [place] [address] [place] [address] 05/27/2025 8:30 AM EDT Office Visit [facility] OB [address] [place] [address] [place] [address] Michelle Vogel PA [address] [place] [address] Dr [place], [facility]11 documented as of this encounter Goals Goal Patient Goal Type Associated Problems Recent Progress Patient-Stated? Author Reminders Care Plan OB Reminders No Open Scheduling, Background documented as of this encounter Visit Diagnoses Not on filedocumented in this encounter Additional Health Concerns Active Problems Noted Date Diagnosed Date OB Reminders 07/17/2023 documented as of this encounter
--- OUTSIDE RECORDS SUMMARY | 2025-04-08 12:27 | XMS_ITS | Encounter Summary ---
Author Organization [facility] Address [address] [place] [address] Care Team Providers Care Soliciting Freight Agent Name Role Phone Unavailable Primary Care Provider Unavailabl e Encounter Details Date Type Department Care Team (Late st Contact Info) Description 11/13/2023 Clinisync Result Encounter [facility] External Department Unsolicited Rashaun Amador DO [address] [facility] [address] Eugene Lopez, [facility]11 Social History Tobacco Use Types Packs/Day [...] 04/22/2025 8:30 AM EDT Office Visit [facility] OB [address] [facility] [place] [address] Michelle Vogel PA [address] [place], [place] [address] 05/27/2025 8:30 AM EDT Office Visit [facility] OB [address] [facility] [place] [address] Michelle Vogel, PA [address] [place], [facility]11 documented as of this encounter Goals Goal Patient Goal Type Associated Problems Recent Progress Patient-Stated? Author Reminders Care Plan OB Reminders No Open Scheduling, Background documented as of this encounter Procedures Procedure Name Priority Date/Time Associated Diagnosis Comments US OB BPP W NON-STRESS 11/13/2023 9:55 AM EST documented in this encounter Results * US OB BPP W NON-STRESS (11/13/2023 9:55 AM EST) Anatomical Region Laterality Modality Other 11/13/2023 9:55 AM EST Narrative 11/13/2023 9:57 [place] [address] Ultrasound Report Signed Patient: DEANDRA MOCTEZUMA MR#: [id number] : 1995 Acct:[id number] Age/Sex: 28 / F ADM Date: 11/13/23 Loc: [facility] 250-[address]: Rashaun Amador D.O. Ordering Physician: Rashaun Amador D.O. Date of Service: 11/13/23 Procedure(s): US OB BPP w non-stress Accession Number(s): [id number] cc: Rashaun Amador D.O.; Physician,Non-Staff M.Jordy The [place] [address] Patient Name: DEANDRA MOCTEZUMA MRN: [id number] date: 1995 Sex: F Assigned Patient Location: [facility] Current Patient Location: [facility] Accession/Order Number: [id number] Exam Date: 11/13/2023 09:00 Report Date: 11/13/2023 09:55 At the request of: RASHAUN AMADOR Procedure: US OB BPP w non-stress EXAMINATION: US OB BPP w non-stress HISTORY: Excessive growth O36.63X0 COMPARISON: No relevant comparison available. TECHNIQUE: Ultrasound biophysical profile was performed in the radiology department. non-reactive stress testing was performed by nursing staff in the birthing center. FINDINGS: BREATHING MOVEMENTS: 2.0 GROSS BODY MOVEMENTS: 2.0 TONE: 2.0 QUALITATIVE AMNIOTIC FLUID VOLUME: 2.0 PRESENTATION: CEPHALIC HEART RATE: 132.0 bpm H.B./min AMNIOTIC FLUID VOLUME: 15.6 cm cm GESTATIONAL AGE: 34 weeks 1 days CONCLUSION: Total biophysical profile score: 8.0 Electronically authenticated by: MERNA SILVA Date: 11/13/2023 09:55 Dictated By: Merna Silva M.D. Signed By: 11/13/23956 DD/ 4 TD/TT: Mobile Therapist: Procedure Note Radiology, Radiologist, MD - 12/19/2023 [place] [address] Ultrasound Report Signed Patient: DEANDRA MOCTEZUMA DMR#: [id number] : 1995Acct:[id number] Age/Sex: 28 FADM Date: 11/13/23 Loc: [facility] 250-[address]: Rashaun Amador D.O. Ordering Physician: Rashaun Amador D.O. Date of Service: 11/13/23 Procedure(s): US OB BPP w non-stress Accession Number(s): [id number] cc: Rashaun Amador D.O.; Physician,Non-Staff Daniel The [place] [address] Patient Name: DEANDRA MOCTEZUMA MRN: [id number] date: 1995 Sex: F Assigned Patient Location: [facility] Current Patient Location: [facility] Accession/Order Number: [id number] Exam Date: 11/13/2023 09:00 Report Date: 11/13/2023 09:55 At the request of: RASHAUN AMADOR Procedure: US OB BPP w non-stress EXAMINATION: US OB BPP w non-stress HISTORY: Excessive growth O36.63X0 COMPARISON: No relevant comparison available. TECHNIQUE: Ultrasound biophysical profile was performed in the radiology department. non-reactive stress testing was performed by nursingstaff in the birthing center. FINDINGS: BREATHING MOVEMENTS: 2.0 GROSS BODY MOVEMENTS: 2.0 TONE: 2.0 QUALITATIVE AMNIOTIC FLUID VOLUME: 2.0 PRESENTATION: CEPHALIC HEART RATE: 132.0 bpm H.B./min AMNIOTIC FLUID VOLUME: 15.6 cm cm GESTATIONAL AGE: 34 weeks 1 days CONCLUSION: Total biophysical profile score: 8.0 Electronically authenticated by: MERNA SILVA Date: 11/13/2023 09:55 Dictated By: Merna Silva M.D. Signed By:11/13/23 0957 DD/ TD/TT: Mobile Therapist: us Rashaun Amador DO [facility] Final Result documented in this encounter Visit Diagnoses Not on filedocumented in this encounter Additional Health Concerns Active Problems Noted Date Diagnosed Date OB Reminders 07/17/2023 documented as of this encounter
--- OUTSIDE RECORDS SUMMARY | 2025-04-08 12:27 | XMS_ITS | Encounter Summary ---
Author Organization [facility] Address [address] [place] [address] Care Team Providers Care Founder President And Ceo Name Role Phone Unavailable Primary Care Provider Unavailabl e Encounter Details Date Type Department Care Team (Late st Contact Info) Description 11/27/2023 Clinisync Result Encounter [facility] External Department Unsolicited Rashaun Amador DO [address] [facility] [address] [place], [facility]11 Social History Tobacco Use Types Packs/Day Years [...] 04/22/2025 8:30 AM EDT Office Visit [facility] OB [address] [facility] [place] [address] Michelle Vogel PA [address] [place], [place] [address] 05/27/2025 8:30 AM EDT Office Visit [facility] OB [address] [place], [place] [address] [address] Michelle Vogel, PA [address] [facility] [address] [place], [facility]11 documented as of this encounter Goals Goal Patient Goal Type Associated Problems Recent Progress Patient-Stated? Author Reminders Care Plan OB Reminders No Open Scheduling, Background documented as of this encounter Procedures Procedure Name Priority Date/Time Associated Diagnosis Comments US OB BPP W NON-STRESS 11/27/2023 11:06 AM EST documented in this encounter Results * US OB BPP W NON-STRESS (11/27/2023 11:06 AM EST) Anatomical Region Laterality Modality Other 11/27/2023 11:0 6 AM EST Narrative 11/27/2023 11:09 [place] [address] Ultrasound Report Signed Patient: DEANDRA MOCTEZUMA MR#: [id number] : 1995 Acct:[id number] Age/Sex: 28 / F ADM Date: 11/27/23 Loc: US Attending Dr: Rashaun Amador D.O. Ordering Physician: Rashaun Amador D.O. Date of Service: 11/27/23 Procedure(s): US OB BPP w non-stress Accession Number(s): [id number] cc: Rashaun Amador D.O.; Physician,Non-Staff M.DPatricia The [place] [id number] Patient Name: DEANDRA MOCTEZUMA MRN: [id number] date: 1995 Sex: F Assigned Patient Location: [facility] Current Patient Location: Accession/Order Number: [id number] Exam Date: 11/27/2023 10:00 Report Date: 11/27/2023 11:06 At the request of: RASHAUN AMADOR Procedure: US OB BPP w non-stress EXAMINATION: US OB BPP w non-stress HISTORY: EXCESSIVE GROWTH O36.63X0 COMPARISON: No relevant comparison available. TECHNIQUE: Ultrasound biophysical profile was performed in the radiology department. FINDINGS: BREATHING MOVEMENTS: 2.0 GROSS BODY MOVEMENTS: 2.0 TONE: 2.0 QUALITATIVE AMNIOTIC FLUID VOLUME: 2.0 PRESENTATION: CEPHALIC HEART RATE: 139.2 bpm H.B./min AMNIOTIC FLUID VOLUME: 14.8 cm cm GESTATIONAL AGE: 36 weeks 2 days CONCLUSION: Total biophysical profile score: 8.0 Electronically authenticated by: MERNA SILVA Date: 11/27/2023 11:06 Dictated By: Merna Silva M.D. Signed By: 11/27/23 1109 DD/ 110 TD/TT: Front Desk Person: Procedure Note Radiology, Radiologist, MD - 12/19/2023 [place] [address] Ultrasound Report Signed Patient: DEANDRA MOCTEZUMA DMR#: [id number] : 1995Acct:[id number] Age/Sex: 28 / FADM Date: 11/27/23 Loc: US Attending Dr: Rashaun Amador D.O. Ordering Physician: Rashaun Amador D.O. Date of Service: 11/27/23 Procedure(s): US OB BPP w non-stress Accession Number(s): [id number] cc: Rashaun Amador D.O.; Physician,Non-Staff Daniel The [place] [id number] Patient Name: DEANDRA MOCTEZUMA MRN: [id number] date: 1995 Sex: F Assigned Patient Location: [facility] Current Patient Location: Accession/Order Number: [id number] Exam Date: 11/27/2023 10:00 Report Date: 11/27/2023 11:06 At the request of: RASHAUN AMADOR Procedure: US OB BPP w non-stress EXAMINATION: US OB BPP w non-stress HISTORY: EXCESSIVE GROWTH O36.63X0 COMPARISON: No relevant comparison available. TECHNIQUE: Ultrasound biophysical profile was performed in the radiology department. FINDINGS: BREATHING MOVEMENTS: 2.0 GROSS BODY MOVEMENTS: 2.0 TONE: 2.0 QUALITATIVE AMNIOTIC FLUID VOLUME: 2.0 PRESENTATION: CEPHALIC HEART RATE: 139.2 bpm H.B./min AMNIOTIC FLUID VOLUME: 14.8 cm cm GESTATIONAL AGE: 36 weeks 2 days CONCLUSION: Total biophysical profile score: 8.0 Electronically authenticated by: MERNA SILVA Date: 11/27/2023 11:06 Dictated By: Merna Silva M.D. Signed By:11/27/23 1109 DD/ 1106 TD/TT: Front Desk Person: us Rashaun Perry DO [facility] Final Result documented in this encounter Visit Diagnoses Not on filedocumented in this encounter Additional Health Concerns Active Problems Noted Date Diagnosed Date OB Reminders 07/17/2023 documented as of this encounter
--- OUTSIDE RECORDS SUMMARY | 2025-04-08 12:27 | XMS_ITS | Encounter Summary ---
Author Organization [facility] Address [address] [place] [address] Care Team Providers Care Certified Neurodiagnostic Technologist Name Role Phone Unavailable Primary Care Provider Unavailabl e Encounter Details Date Type Department Care Team (Late st Contact Info) Description 11/20/2023 Clinisync Result Encounter [facility] External Department Unsolicited Rashaun Amador DO [address] [facility] [address] Eugene Lopez, [facility] Social History Tobacco Use Types Packs/Day Years [...] 04/22/2025 8:30 AM EDT Office Visit [facility] OB [address] [address] Michelle Vogel PA [address] [place], [place] [address] 05/27/2025 8:30 AM EDT Office Visit [facility] [address] [facility] [facility] [place] [address] Michelle Vogel, PA [address] [facility] [address] [place], [facility] documented as of this encounter Goals Goal Patient Goal Type Associated Problems Recent Progress Patient-Stated? Author Reminders Care Plan OB Reminders No Open Scheduling, Background documented as of this encounter Procedures Procedure Name Priority Date/Time Associated Diagnosis Comments US OB BPP W NON-STRESS 11/20/2023 10:22 AM EST documented in this encounter Results * US OB BPP W NON-STRESS (11/20/2023 10:22 AM EST) Anatomical Region Laterality Modality Other 11/20/2023 10:2 2 AM EST Narrative 11/20/2023 10:25 [place] [address] Ultrasound Report Signed Patient: DEANDRA MOCTEZUMA MR#: [id number] : 1995 Acct:[id number] Age/Sex: 28 / F ADM Date: 11/20/23 Loc: [facility] 250-[address]: Rashaun Amador D.O. Ordering Physician: Rashaun Amador D.O. Date of Service: 11/20/23 Procedure(s): US OB BPP w non-stress Accession Number(s): [id number] cc: Rashaun Amador D.O.; Physician,Non-Staff M.DPatricia The [address] [address] Patient Name: DEANDRA MOCTEZUMA MRN: [facility]:[id number] date: 1995 Sex: F Assigned Patient Location: [facility] Current Patient Location: [facility] Accession/Order Number: [id number] Exam Date: 11/20/2023 09:45 Report Date: 11/20/2023 10:22 At the request of: RASHAUN AMADOR Procedure: US OB BPP w non-stress EXAMINATION: US OB BPP w non-stress HISTORY: EXCESSIVE GROWTH O36.63X0 COMPARISON: Ultrasound OB biophysical 11/13/2023 TECHNIQUE: Ultrasound biophysical profile was performed in the radiology department. BREATHING MOVEMENTS: 2.0 GROSS BODY MOVEMENTS: 2.0 TONE: 2.0 QUALITATIVE AMNIOTIC FLUID VOLUME: 2.0 PRESENTATION: CEPHALIC HEART RATE: 133.0 bpm bpm. AMNIOTIC FLUID VOLUME: 12.4 cm GESTATIONAL AGE: 35 weeks 2 days CONCLUSION: Total biophysical profile score 8.0. Electronically authenticated by: HUDSON ASIF Date: 11/20/2023 10:22 Dictated By: Hudson Asif M.D. Signed By: 11/20/23 1025 DD/ 1022 TD/TT: Bronc Breaker: Procedure Note Radiology, Radiologist, MD - 12/19/2023 [place] [address] Ultrasound Report Signed Patient: DEANDRA MOCTEZUMA DMR#: [id number] : 1995Acct:[id number] Age/Sex: 28 / FADM Date: 11/20/23 Loc: [facility] 250-[address]: Rashaun Amador D.O. Ordering Physician: Rashaun Amador D.O. Date of Service: 11/20/23 Procedure(s): US OB BPP w non-stress Accession Number(s): [id number] cc: Rashaun Amador D.O.; Physician,Non-Staff Daniel The [place] [address] Patient Name: DEANDRA MOCTEZUMA MRN: [id number] date: 1995 Sex: F Assigned Patient Location: [facility] Current Patient Location: [facility] Accession/Order Number: [id number] Exam Date: 11/20/2023 09:45 Report Date: 11/20/2023 10:22 At the request of: RASHAUN AMADOR Procedure: US OB BPP w non-stress EXAMINATION: US OB BPP w non-stress HISTORY: EXCESSIVE GROWTH O36.63X0 COMPARISON: Ultrasound OB biophysical 11/13/2023 TECHNIQUE: Ultrasound biophysical profile was performed in the radiology department. BREATHING MOVEMENTS: 2.0 GROSS BODY MOVEMENTS: 2.0 TONE: 2.0 QUALITATIVE AMNIOTIC FLUID VOLUME: 2.0 PRESENTATION: CEPHALIC HEART RATE: 133.0 bpm bpm. AMNIOTIC FLUID VOLUME: 12.4 cm GESTATIONAL AGE: 35 weeks 2 days CONCLUSION: Total biophysical profile score 8.0. Electronically authenticated by: HUDSON ASIF Date: 11/20/2023 10:22 Dictated By: Hudson Asif M.D. Signed By:11/20/23 1025 DD/ 1022 TD/TT: Bronc Breaker: us Rashaun Perry DO [facility] Final Result documented in this encounter Visit Diagnoses Not on filedocumented in this encounter Additional Health Concerns Active Problems Noted Date Diagnosed Date OB Reminders 07/17/2023 documented as of this encounter
--- OUTSIDE RECORDS SUMMARY | 2025-04-08 12:27 | XMS_ITS | Encounter Summary ---
Author Organization [facility] Address [address] [place] [address] Care Team Providers Care Physician Credentialing Specialist Name Role Phone Unavailable Primary Care Provider Unavailabl e Encounter Details Date Type Department Care Team (Late st Contact Info) Description 11/21/2023 Clinisync Result Encounter [facility] External Department Unsolicited Rashaun Amador DO [address] [facility] [address] Eugene Lopez, [facility]11 Social History Tobacco Use Types Packs/Day [...] [facility] OB [address] [place] [address] Michelle Vogel PA [address] [place], [place] [address] 05/27/2025 8:30 AM EDT Office Visit [facility] OB [address] [facility] [place] [address] Michelle Vogel, PA [address] [facility] [address] [place], [facility]11 documented as of this encounter Goals Goal Patient Goal Type Associated Problems Recent Progress Patient-Stated? Author Reminders Care Plan OB Reminders No Open Scheduling, Background documented as of this encounter Procedures Procedure Name Priority Date/Time Associated Diagnosis Comments US OB GROWTH 11/21/2023 9:12 AM EST documented in this encounter Results * US OB GROWTH (11/21/2023 9:12 AM EST) Anatomical Region Laterality Modality Other 11/21/2023 9:12 AM EST Narrative 11/21/2023 9:15 [place] [address] Ultrasound Report Signed Patient: DEANDRA MOCTEZUMA MR#: [id number] : 1995 Acct:[id number] Age/Sex: 28 / F ADM Date: 11/21/23 Loc: [facility] Attending Dr: Rashaun Amador D.O. Ordering Physician: Rashaun Amador D.O. Date of Service: 11/21/23 Procedure(s): US OB growth Accession Number(s): [id number] cc: Rashaun Amador D.O.; Physician,Non-Staff M.DPatricia [address] [address] Patient Name: DEANDRA MOCTEZUMA MRN: [id number] date: 1995 Sex: F Assigned Patient Location: [facility] Current Patient Location: [facility] Accession/Order Number: [id number] Exam Date: 11/21/2023 08:29 Report Date: 11/21/2023 09:12 At the request of: RASHAUN AMADOR Procedure: US OB growth EXAMINATION: US OB growth HISTORY: LGA COMPARISON: No relevant comparison available. FINDINGS: Heart Rate: 130.0 bpm Amniotic Fluid Volume: 13.6 cm Number: 1.0 Position: CEPHALIC Maximum Vertical Pocket: 3.4 cm cm 3.8 cm cm 3.5 cm cm 2.9 cm cm BIOMETRY: BPD: 8.5 cm cm; 34 weeks 2 days; 26% HC: 31.4 cmcm; 35 weeks 1 days , 17% AC: 30.8 cm cm; 34 weeks 5 days, 43% FL: 6.3 cm cm; 32 weeks 3 days; < 3.0 % % EFW: 2358.4 grams, 5 lbs. 3 oz., 19% FL/AC: 20.3 FL/BPD: 73.7 HC/AC: 1.0 GESTATIONAL AGE: Age by EDC: 35 weeks 2 days DARON by EDC: 12/24/2023 Age by US: 34 weeks 1 day DARON by US: 01/01/2024 US/US OB growth IMPRESSION: Femur length less than the 3rd percentile, otherwise normal interval growth Electronically authenticated by: MERNA SILVA Date: 11/21/2023 09:12 Dictated By: Merna Silva M.D. Signed By: 11/21/23914 DD/ 1 TD/TT: Relations Manager: Procedure Note Radiology, Radiologist, MD - 12/19/2023 [place] [address] Ultrasound Report Signed Patient: DEANDRA MOCTEZUMA DMR#: [id number] : 1995Acct:[id number] Age/Sex: 28 / FADM Date: 11/21/23 Loc: [facility] Attending Dr: Rashaun Amador D.O. Ordering Physician: Rashaun Amador D.O. Date of Service: 11/21/23 Procedure(s): US OB growth Accession Number(s): [id number] cc: Rashaun Amador D.O.; Physician,Non-Staff Daniel The [place] [address] Patient Name: DEANDRA MOCTEZUMA MRN: [id number] date: 1995 Sex: F Assigned Patient Location: [facility] Current Patient Location: [facility] Accession/Order Number: [id number] Exam Date: 11/21/2023 08:29 Report Date: 11/21/2023 09:12 At the request of: RASHAUN AMADOR Procedure: US OB growth EXAMINATION: US OB growth HISTORY: LGA COMPARISON: No relevant comparison available. FINDINGS: Heart Rate: 130.0 bpm Amniotic Fluid Volume: 13.6 cm Number: 1.0 Position: CEPHALIC Maximum Vertical Pocket: 3.4 cm cm 3.8 cm cm 3.5 cm cm 2.9 cm cm BIOMETRY: BPD: 8.5 cm cm; 34 weeks 2 days; 26% HC: 31.4 cmcm; 35 weeks 1 days , 17% AC: 30.8 cm cm; 34 weeks 5 days, 43% FL: 6.3 cm cm; 32 weeks 3 days; < 3.0 % % EFW: 2358.4 grams, 5 lbs. 3 oz., 19% FL/AC: 20.3 FL/BPD: 73.7 HC/AC: 1.0 GESTATIONAL AGE: Age by EDC: 35 weeks 2 days DARON by EDC: 12/24/2023 Age by US: 34 weeks 1 day DARON by US: 01/01/2024 US/US OB growth IMPRESSION: Femur length less than the 3rd percentile, otherwise normal intervalgrowth Electronically authenticated by: MERNA SILVA Date: 11/21/2023 09:12 Dictated By: Merna Silva M.D. Signed By:11/21/23914 DD/ 1 TD/TT: Relations Manager: us Rashaun Amador DO [facility] Final Result documented in this encounter Visit Diagnoses Not on filedocumented in this encounter Additional Health Concerns Active Problems Noted Date Diagnosed Date OB Reminders 07/17/2023 documented as of this encounter
--- OUTSIDE RECORDS SUMMARY | 2025-04-08 12:27 | XMS_ITS | Encounter Summary ---
Author Organization [facility] Address [address] [place] [address] Care Team Providers Care It Sales Consultant Name Role Phone Unavailable Primary Care Provider Unavailabl e Encounter Details Date Type Department Care Team (Late st Contact Info) Description 12/04/2023 Clinisync Result Encounter [facility] External Department Unsolicited Rashaun Amador DO [address] [facility] [address] Eugene Lopez, [facility]11 Social History Tobacco Use Types Packs/Day Years [...] 04/22/2025 8:30 AM EDT Office Visit [facility] OB [address] [place] [address] Michelle Vogel PA [address] [place], [place] [address] 05/27/2025 8:30 AM EDT Office Visit [facility] OB [address] [facility] [address] Michelle Vogel, PA [address] [facility] [address] [place], [facility]11 documented as of this encounter Goals Goal Patient Goal Type Associated Problems Recent Progress Patient-Stated? Author Reminders Care Plan OB Reminders No Open Scheduling, Background documented as of this encounter Procedures Procedure Name Priority Date/Time Associated Diagnosis Comments US OB BPP W NON-STRESS 12/04/2023 10:44 AM EST documented in this encounter Results * US OB BPP W NON-STRESS (12/04/2023 10:44 AM EST) Anatomical Region Laterality Modality Other 12/04/2023 10:4 4 AM EST Narrative 12/04/2023 10:47 [place] [address] Ultrasound Report Signed Patient: DEANDRA MOCTEZUMA MR#: [id number] : 1995 Acct:[id number] Age/Sex: 28 / F ADM Date: 12/04/23 Loc: [facility] 250-[address]: Rashaun Amador D.O. Ordering Physician: Rashaun Amador D.O. Date of Service: 12/04/23 Procedure(s): US OB BPP w non-stress Accession Number(s): [id number] cc: Rashaun Amador D.O.; Physician,Non-Staff M.DPatricia The [address] [address] Patient Name: DEANDRA MOCTEZUMA MRN: [facility]:[id number] date: 1995 Sex: F Assigned Patient Location: [facility] Current Patient Location: [facility] Accession/Order Number: [id number] Exam Date: 12/04/2023 10:10 Report Date: 12/04/2023 10:44 At the request of: RASHAUN AMADOR Procedure: US OB BPP w non-stress EXAMINATION: US OB BPP w non-stress HISTORY: Excessive growth COMPARISON: Ultrasound OB biophysical 11/27/2023 TECHNIQUE: Ultrasound biophysical profile was performed in the radiology department. BREATHING MOVEMENTS: 2.0 GROSS BODY MOVEMENTS: 2.0 TONE: 2.0 QUALITATIVE AMNIOTIC FLUID VOLUME: 2.0 PRESENTATION: CEPHALIC HEART RATE: 130.4 bpm bpm. AMNIOTIC FLUID VOLUME: 17.1 cm GESTATIONAL AGE: 37 weeks 1 days CONCLUSION: Total biophysical profile score 8.0. Electronically authenticated by: HUDSON ASIF Date: 12/04/2023 10:44 Dictated By: Hudson Asif M.D. Signed By: 12/04/23 1047 DD/ 43 TD/TT: Circle Beveler: Procedure Note Radiology, Radiologist, MD - 12/19/2023 [place] [address] Ultrasound Report Signed Patient: DEANDRA MOCTEZUMA DMR#: [id number] : 1995Acct:[id number] Age/Sex: 28 / FADM Date: 12/04/23 Loc: [facility] 250-[address]: Rashaun Amador D.O. Ordering Physician: Rashaun Amador D.O. Date of Service: 12/04/23 Procedure(s): US OB BPP w non-stress Accession Number(s): [id number] cc: Rashaun Amador D.O.; Physician,Non-Staff Daniel The [place] [id number] Patient Name: DEANDRA MOCTEZUMA MRN: [id number] date: 1995 Sex: F Assigned Patient Location: [facility] Current Patient Location: [facility] Accession/Order Number: [id number] Exam Date: 12/04/2023 10:10 Report Date: 12/04/2023 10:44 At the request of: RASHAUN AMADOR Procedure: US OB BPP w non-stress EXAMINATION: US OB BPP w non-stress HISTORY: Excessive growth COMPARISON: Ultrasound OB biophysical 11/27/2023 TECHNIQUE: Ultrasound biophysical profile was performed in the radiology department. BREATHING MOVEMENTS: 2.0 GROSS BODY MOVEMENTS: 2.0 TONE: 2.0 QUALITATIVE AMNIOTIC FLUID VOLUME: 2.0 PRESENTATION: CEPHALIC HEART RATE: 130.4 bpm bpm. AMNIOTIC FLUID VOLUME: 17.1 cm GESTATIONAL AGE: 37 weeks 1 days CONCLUSION: Total biophysical profile score 8.0. Electronically authenticated by: HUDSON ASIF Date: 12/04/2023 10:44 Dictated By: Hudson Asif M.D. Signed By:12/04/23 1047 DD/ 1044 TD/TT: Circle Beveler: us Rashaun Perry DO [facility] Final Result documented in this encounter Visit Diagnoses Not on filedocumented in this encounter Additional Health Concerns Active Problems Noted Date Diagnosed Date OB Reminders 07/17/2023 documented as of this encounter
--- OUTSIDE RECORDS SUMMARY | 2025-04-08 12:27 | XMS_ITS | Clinical Summary ---
Author Organization [facility] Address [address] [place] [address] Care Team Providers Care Box Bender Name Role Phone Unavailable Primary Care Provider Unavailabl e Allergies Active Allergy Reactions Criticality Noted Date Comments Amoxicillin 07/17/2023 Penicillin G Procaine Rash Low 10/03/2023 Penicillins 10/18/2020 Other Reaction(s): Rash Medications levothyroxine (Synthroid) 125 MCG tabletIndication s:Hypothyroidism (acquired) Take 1 tablet (125 mcg) by mouth in the morning. Take before meals. 90 tablet 4 Active citalopram (CeleXA) 20 MG tabletIndication s:Anxiety, generalized Take 1 tablet (20 mg) by mouth Daily 360 tablet 4 Active phentermine (Adipex-P) 37.5 MG tablet Take 37.5 mg by mouth in the morning. Take before meals. Active metFORMIN, OSM, (Fortamet) 500 MG 24 hr tablet Take 500 mg by mouth in the evening. Take with meals Do not crush, chew, or split. Active MV-Min-Fe Fum-FA-DHA ( 1 PO) Take 1 each by mouth in the morning. 03/17/20 25 Discontinu ed(Therapy completed) Encounters Date Type Department Care Team Description 03/17/2025 9:10 AM EDT Consult [facility] OB [address] [place] [address] Rashaun Amador DO Pre-op examination; Pelvic pain; Dysmenorrhea; Dyspareunia in female; Menorrhagia with irregular cycle 03/17/2025 Bamboo flowsheet [facility] OB [address] [place] [phone] Rashaun Amador DO 02/04/2025 2:20 PM EDT Office Visit [facility] [address] [place] [address] Rashaun Amador DO Menorrhagia with regular cycle; Crampy pain associated with menses; History of endometrial ablation; Dysmenorrhea 02/04/2025 Bamboo flowsheet [facility] [address] [place] [address] Rashaun Amador DO from Last 3 Months Family History Medical History Relation Name Comments Heart disease Maternal Grandfather Diabetes Mother Hypertension Mother Relation Name Status Comments Father Alive Maternal Grandfather Mother Alive Social History Tobacco Use Types Packs/Day Years Used Date Smoking Tobacco: Never Assessed Comments No Sex and Gender Information Value Date Recorded Sex Assigned at Female 07/03/2023 2:52 PM EDT Legal Sex Female 11:09 PM EDT Gender Identity Female 07/03/2023 2:52 PM EDT Sexual Orientation Straight 07/03/2023 2: 52 PM EDT Last Filed Vital Signs Vital Sign Reading Time Taken Comments Blood Pressure 126/82 03/17/2025 9:33 AM EDT Pulse - - Temperature - - Respiratory Rate - - Oxygen Saturation - - Inhaled Oxygen Concentration - - Weight 99.3 kg (219 lb) 02/04/2025 2:37 PM EDT Height 160 cm (5' 3 ) 01/22/2024 8:46 AM EDT Body Mass Index 38.79 01/22/2024 8:46 AM EDT Plan of Treatment Upcoming Encounters Date Type Department Care Team (Late st Contact Info) Description 04/22/2025 8:30 AM EDT Office Visit [facility] [address] [place] [address] Michelle Vogel PA [address] [place] [address] [place] [address] 05/27/2025 8:30 AM EDT Office Visit [facility] [address] [place] [address] Michelle Vogel PA [address] [facility] [place] [address] Health Maintenance Due Date Last Done Comments Influenza Vaccine (Season Ended) 2025 08/18/2023, 09/25/2022, 08/31/2020, Additional history exists Cervical Cancer Screening 04/30/2028 HPV/Cotest 04/30/2028 Pap Smear 04/30/2028 04/30/2023 Goals Goal Patient Goal Type Associated Problems Recent Progress Patient-Stated? Author Reminders Care Plan OB Reminders No Open Scheduling, Background Procedures Procedure Name Priority Date/Time Associated Diagnosis Comments POCT URINALYSIS DIPSTICK Routine 02/04/2025 2:42 PM EDT Menorrhagia with regular cycle Crampy pain associated with menses PAP SMEAR Routine 04/30/2023 12:00 AM EDT from Last 3 Months or Most Recently Relevant to Health Maintenance Results * POCT urinalysis dipstick manually resulted (02/04/2025 2:42 PM EDT) Color, UA Yellow Clarity, UA Clear Glucose, UA Negative Negative - 2000(110) ++++ mg/dL Bilirubin, UA Negative Negative - 4(70) +++ mg/dL Ketones, UA Negative Negative - 160(16) ++++ mg/dL Spec Grav, UA 1.025 1 - 1.03 Blood, UA Negative Negative - 50 Tod/mcL pH, UA 5.5 5 - 9 Protein, UA Negative Negative - 2000(20) ++++ mg/dL Urobilinogen, UA 0.2 0.2 - 12 mg/dL Leukocytes, UA Trace Negative - 500+++ Rosemarie/mcL Nitrite, UA Negative Negative - Positive Urine 02/04/2025 2:42 PM EDT Rashaun Amador DO POINT OF CARE TEST ENTER/EDIT OR DERABLES Final Result * Pap Smear (04/30/2023 12:00 AM EDT) Swab Cervical swab / Unknown us Rashaun Amador DO LAB CYTOLOGY ORDERABLES Final Re sult EXTERNAL LAB from Last 3 Months or Most Recently Relevant to Health Maintenance Additional Health Concerns Active Problems Noted Date Diagnosed Date OB Reminders 07/17/2023 Insurance [employer]
[2025-04-08 13:05] LABS: Basophils Percent Auto 0.6 % (0.2-2.0); Eosinophils Absolute Auto 0.1 10^3/uL (0.0-0.7); Hematocrit 40.7 % (36.0-48.0); Hemoglobin 13.9 g/dL (12.0-16.0); Immature Granulocytes Abs Auto 0.01 10^3/uL (0.00-0.03); Immature Granulocytes Pct Auto 0.1 % (0.0-0.5); Lymphocytes Absolute Auto 1.4 10^3/uL (1.2-3.8); Lymphocytes Percent Auto 20.5 % (20.5-60.0); Mean Corpuscular HGB Conc 34.2 g/dL (29.9-35.2); Mean Corpuscular Hemoglobin 29.7 pg (26.7-34.0); Mean Platelet Volume 9.7 fL (9.5-13.5); Monocytes Absolute Auto 0.4 10^3/uL (0.3-0.8); Neutrophils Absolute Auto 4.9 10^3/uL (1.4-6.5); Neutrophils Percent Auto 70.8 % (43.0-75.0); Platelet Count 307 10^3/uL (150-450); Red Blood Count 4.68 10^6/uL (4.20-5.40); Red Cell Distribution Width 12.5 % (11.0-15.0); White Blood Count 6.9 10^3/uL (4.0-11.0)
[2025-04-08 13:13] LABS: Alanine Aminotransferase 19 U/L (14-59); Albumin Globulin Ratio 0.7; Albumin Level 3.2 g/dL (3.4-5.0); Alkaline Phosphatase 83 U/L (46-116); Anion Gap 9.5; Aspartate Amino Transferase 14 U/L (15-37); BUN Creatinine Ratio 10.5; Bilirubin Direct 0.1 mg/dL (0.0-0.2); Bilirubin Total 0.2 mg/dL (0.2-1.0); Calcium 8.8 mg/dL (8.5-10.1); Carbon Dioxide 28.3 mmol/L (21.0-32.0); Chloride 104 mmol/L (98-107); Estimated GFR (African America >60 (>=60 mL/min/1.73m^2); Estimated GFR (Non-African Ame >60 (>=60 mL/min/1.73m^2); Globulin 4.3 g/dL; Glucose 90 mg/dL (74-106); INR 0.95; Partial Thromboplastin Time 28.3 sec (22.3-36.2); Potassium 3.8 mmol/L (3.5-5.1); Prothrombin Time 10.1 sec (9.0-11.6); Sodium 138 mmol/L (136-145); Total Protein 7.5 g/dL (6.4-8.2)
== END 2025-04-08 12:24 | disposition home or self-care (01) ==
LOC: PST 12:24
PROVIDERS: PCP Nurse Practitioner Family; Visit Provider Obstetrics & Gynecology
DX: Z01.812 Encounter for preprocedural laboratory examination (principal); N94.10 Unspecified dyspareunia; N92.0 Excessive and frequent menstruation with regular cycle; R10.2 Pelvic and perineal pain; N94.6 Dysmenorrhea, unspecified
CPT/HCPCS: 36415; 80048; 80076; 85025; 85610; 85730; 86850; 86900; 86901

== ENCOUNTER 2025-04-15 06:18 | Day surgery (SDC) | payer OTHER, SELFPAY ==
--- OUTSIDE RECORDS SUMMARY | 2023-11-26 11:38 | XMS_ITS | Continuity of Care Document ---
Author Organization [facility] Address [address] [place] [address] Phone Care Team Providers Care King Maker Name Role Phone Nirmal CNP ALLISON, Charlene [...] VISIT, EST Nutrit Couns For Control Of [place] Dis Jan Intraoral-periapical 1st Film Limited Oral [...] Diagnoses Date Provider Providers Copied on Encounter [facility], [address] [place] [address], [id number] , [place] tel: [phone] [facility] No Information 4 Nirmal Chang. [address] [place] [address], [id number] , [place]. tel:[phone] [facility], [address] [place] [address], [id number] , tel: [phone] [facility] No Information 3 Monty Desir. [address] [place] [address], [id number] , [place]. tel:[phone] OFFICE/OUTPA TIENT VISIT, [facility], [address] [place] [address], [id number] , [place] tel:+ [phone] [facility] follow up (chief complaint)M igraine (chief complaint)A llergies (chief complaint)T hyroid problems (chief complaint) Body mass index [BMI] 29.0-29.9, adultHypothyroidism, unspecified typeIntractable migraine without status migrainosus, unspecified migraine typeNasal congestion 3 Monty Desir. [address] [place] [address], [id number] , [place]. tel:+ [phone] OFFICE/OUTPA TIENT VISIT, [facility], [address] [place] [address], [id number] , [place] tel:+ [phone] [facility] migraines (chief complaint)M igraine (chief complaint) Chronic daily headache 3 Monty Desir. [address] [place] [address], [id number] , [place]. tel:+ [phone] OFFICE/OUTPA TIENT VISIT, [facility], [address] [place] [address], [id number] , [place] tel:+ [phone] [facility] F/U (chief complaint)M igraine (chief complaint) Encounter for screening examination for other mental health and behavioral disordersBody mass index [BMI] 29.0-29.9, adultAcute migraine 3 Monty Desir. [address] [place] [address], [id number] , [place]. tel:[phone] OFFICE/OUTPA TIENT VISIT, [facility], [address] [place] [address], [id number] , [place] tel:+ [phone] [facility] ER f/u (chief complaint)D epression (chief complaint)T hyroid problems (chief complaint)H eadache (chief complaint)N ausea and vomiting (chief complaint) Body mass index [BMI] 29.0-29.9, adultDepression with anxietyChronic nauseaNonintractable headache, unspecified chronicity pattern, unspecified headache typeHypothyroidism, unspecified type Jan- 3 Monty Desir. [address] [place] [address], [id number] , [place]. tel:+ [phone] OFFICE/OUTPA TIENT VISIT, [facility], [address] [place] [address], [id number] , [place] tel:+ [phone] [facility] F/u Depression & TSH (chief complaint)D izziness (chief complaint)h eadache (chief complaint)L ab Draw (chief complaint) Body mass index [BMI] 29.0-29.9, adultSevere headacheAcute vomitingDizzinessHyp othyroidism, unspecified type 3 Monty Desir. [address] [place] [address], [id number] , [place]. tel:+ [phone] [facility], [address] [place] [address], [id number] , [place] tel:+ [phone] [facility] Chronic nausea Jan-0 3 Monty Desir. [address] [place] [address], [id number] , [place]. tel:+ [phone] OFFICE/OUTPA TIENT VISIT, [facility], [address] [place] [address], [id number] , [place] tel:+ [phone] [facility] Dep follow-up (chief complaint)d epression (chief complaint)N ausea and vomiting (chief complaint)A cne (chief complaint) Anxiety and depressionChronic nauseaAdult acneBody mass index [BMI] 29.0-29.9, adult Dec- 3 Monty Desir. [address] [place] [address], [id number] , [place]. tel:[phone] [facility], [address] [place] [address], [id number] , [place] tel: [phone] [facility] annual exam (chief complaint) Encounter for gynecological examination (general) (routine) without abnormal findingsBody mass index [BMI]30.0-30.9, adult 3 Nirmal [facility]ebia Charlene. [address] [place] [address], [id number] , [place]. tel: [phone] OFFICE/OUTPA TIENT VISIT, [facility], [address] [place] [address], [id number] , [place] tel: [phone] [facility] f/u depression (chief complaint)d epression (chief complaint) Depression with anxietyMastitisBody mass index [BMI]30.0-30.9, adult 3 Monty Desir. [address] [place] [address], [id number] , [place]. tel: [phone] OFFICE/OUTPA TIENT VISIT, [facility], [address] [place] [address], [id number] , [place] tel: [phone] [facility] check up (chief complaint) Body mass index [BMI] 25.0-25.9, adultAbdominal pain in female patientChronic GERD 1 [facility]. [address] [place] [address], [id number] , [place]. tel: [phone] OFFICE/OUTPA TIENT VISIT, [facility], [address] [place] [address], [id number] , [place] tel: [phone] [facility] f/u (chief complaint) Anxiety and depressionChronic nauseaBody mass index [BMI] 26.0-26.9, adult 1 Monty Desir. [address] [place] [address], [id number] , [place]. tel: [phone] OFFICE/OUTPA TIENT VISIT, [facility], [address] [place] [address], [id number] , [place] tel: [phone] [facility] Screen Depression (chief complaint)d epression (chief complaint) Anxiety and depressionBody mass index [BMI] 27.0-27.9, adult Apr- 1 Monty Desir. [address] [place], [place], [id number] , [place]. tel: [phone] [facility], [address] [place] [address], [id number] , [place] tel: [phone] [facility] er (chief complaint) Encounter for screening for dental disorders 3 1 David Henao. [address] [place], [place], [id number] , [place]. tel: [phone] OFFICE/OUTPA TIENT VISIT, [facility], [address] [place] [address], [id number] , [place] tel: [phone] [facility] discuss meds (chief complaint) Body mass index [BMI] 33.0-33.9, adultAnxiety and depressionChronic nauseaMenstrual cramps 1 Monty Desir. [address] [place] [address], [id number] , [place]. tel: [phone] OFFICE/OUTPA TIENT VISIT, [facility], [address] [place] [address], [id number] , [place] tel: [phone] [facility] f/u anxiety and depression (chief complaint) Body mass index [BMI] 35.0-35.9, adultChronic nauseaAnxiety and depression 0 Monty Desir. [address] [place] [address], [id number] , [place]. tel: [phone] OFFICE/OUTPA TIENT VISIT, [facility], [address] [place] [address], [id number] , [place] tel: [phone] [facility] f/u stomach issues (chief complaint)V omiting (chief complaint)d epression (chief complaint) Body mass index [BMI] 38.0-38.9, adultAbdominal pain in female patientAnxiety and depressionChronic GERDNausea and vomiting, intractability of vomiting not specified, unspecified vomiting typeChronic nausea 0 Monty Desir. [address] [place], [place], [id number] , [place]. tel: [phone] OFFICE/OUTPA TIENT VISIT, [facility], [address] [place] [address], [id number] , [place] tel: [phone] [facility] Stomach Issues (chief complaint)h ypertension (chief complaint)G ERD (chief complaint)T hyroid problems (chief complaint) Chronic GERDAbdominal pain in female patientAnxiety and depressionHypothyroi dism, unspecified type 0 Monty Desir. [address] [place] [address], [id number] , [place]. tel: [phone] OFFICE/OUTPA TIENT VISIT, [facility], [address] [place] [address], [id number] , [place] tel: [phone] [facility] f/u (chief complaint) Anxiety and depressionChronic GERDPsoriasisBody mass index (BMI) 40.0-44.9, adult Dec- 0 Monty Desir. [address] [place], [place], [id number] , [place]. tel: [phone] OFFICE/OUTPA TIENT VISIT, [facility], [address] [place] [address], [id number] , [place] tel: [phone] [facility] f/u meds (chief complaint) Anxiety and depressionHx laparoscopic cholecystectomy 9 Monty Desir. [address] [place] [address], [id number] , [place]. tel: [phone] [facility], [address] [place] [address], [id number] , [place] tel: [phone] [facility] Other cholelithiasis without obstruction 9 [facility]. [address] [place], [place], [id number] , [place]. tel:+ [phone] OFFICE/OUTPA TIENT VISIT, [facility], [address] [place], [place], [id number] , [place] tel:+ [phone] [facility] FOLLOW UP (chief complaint)A bdominal pain (chief complaint) Body mass index (BMI) 40.0-44.9, adultAbdominal pain in female patientAnxiety and depressionChronic GERDPsoriasis 9 [facility]. [address] [place], [place], [id number] , [place]. tel: [phone] OFFICE/OUTPA TIENT VISIT, [facility], [address] [place] [address], [id number] , [place] tel: [phone] [facility] est care (chief complaint) Anxiety and depressionChronic GERDEncounter for annual health examinationBody mass index (BMI) 40.0-44.9, adult 9 Monty Desir. [address] [place] [address], [id number] , [place]. tel:+ [phone] Family History Family Member Type Diagnosis Age [...] egistry Payers Payer name Insurance type Covered constitution party ID Alexys mera(s) Niki Medicaid CFC [id number] Medicaid Wrap - [employer] [facility] [id number] Medicaid Wr - [facility] [id number] Social History Type Description Quantity Date Captured Comments Alcohol Use Details Unknown Caffeine Use Details Unknown Tobacco Use Status No Information Smoking Status No Information Sex Female Sexual Orientation Straight or heterosexual Gender Identity Female Chief Complaint And Reason For Visit No Information Reason For Referral Reason For Referral No Information Plan Of Treatment Date Type Action Status Goal Influenza vaccine. Due on due Goal Tdap Vaccine. Due on 2027 due Goal PRAPARE ASSESSMENT. Due on due Goal PAP. Due on due Goal Tdap due Goal RLP. Due on due Goal Depression scree jennifer. Due on due Goal Hep A. Due on du e Goal Influenza vaccine. Due on due Goal [...] on 2027 due Goal Tdap due Goal RLP. Due on due Goal Depression scree jennifer. Due on due Goal Depression scree jennifer. Due on due Goal Tdap due Goal PRAPARE ASSESSMENT. Due on due Goal RLP. Due on due Goal PAP. Due on due Goal Influenza vaccine. Due on due Goal Tdap Vaccine. Due on 2027 due Goal Lifestyle education regardin g diet completed Goal Hep A. Due on du e Goal Influenza vaccine. Due on Ap due Goal Tdap due Goal Depression scree jennifer. Due on due Goal RLP. Due on due Goal PRAPARE ASSESSMENT. Due on A due Goal Tdap Vaccine. Due on 2027 due Goal PAP. Due on due Goal Dietary manageme nt education, guidance, and counseling completed Goal Depression scree jennifer. Due on due Goal PAP. Due on due Goal PRAPARE ASSESSMENT. Due on A due Goal Tdap due Goal Influenza vaccine. Due on Ap due Goal RLP. Due on due Goal Tdap Vaccine. Due on 2027 due Goal Dietary manageme nt education, guidance, and counseling completed Goal Hep A. Due on du e Goal Tdap Vaccine. Due on 2027 due Goal Depression scree jennifer. Due on due Goal PAP. Due on due Goal Influenza vaccine. Due on Ap due Goal Tdap due Goal PRAPARE ASSESSMENT. Due on A due Goal RLP. Due on due Goal Influenza vaccine. Due on Ma due Goal PAP. Due on due Goal Tdap due Goal RLP. Due on due Goal PRAPARE ASSESSMENT. Due on M due Goal Depression scree jennifer. Due on due Goal Tdap Vaccine. Due on 2027 due Goal Lifestyle education regardin g diet completed Goal PRAPARE ASSESSMENT. Due on F due Goal PAP. Due on due Goal Tdap. Due on due Goal Depression scree jennifer. Due on due Goal Tdap Vaccine. Due on 2022 due Goal Influenza vaccine. Due on due Goal RLP. Due on due Goal Hep A. Due on du e Goal Dietary manageme nt education, guidance, and counseling completed Goal PAP. Due on due Goal Depression scree jennifer. Due on due Goal Tdap. Due on due Goal Tdap Vaccine. Due on 2022 due Goal Influenza vaccine. Due on due Goal PRAPARE ASSESSMENT. Due on due Goal RLP. Due on due Goal Dietary manageme nt education, guidance, and counseling completed Goal Dietary manageme nt education, guidance, and counseling completed Goal Tobacco cessation counseling completed Goal Dietary manageme nt education, guidance, and counseling completed Goal Tobacco cessation counseling completed Goal Lifestyle education regardin g [...] Future Order: Lab Order CBC With Differential/Platelet ([id number]), Ordered on: Ordered Future Order: Lab Order Comp. Me tabolic Panel (14) ([id number]), Ordered on: Ordered Future Order: Lab Order Hemoglob in A1c ([id number]), Ordered on: Ordered Future Order: Lab Order Lipid Pa ursula ([id number]), Ordered on: Ordered Future Order: Lab Order TSH+Free T4 ([id number]), Ordered on: Ordered History Of Present Illness [...] include age and female. Additional information: RGonmillie [facility]. Migraine The severity of the problem is [...] Additional information: migraine currently every other day. [facility] follow up Presents for tsh lab draw [...] visual aura and vertigo. Additional information: Patricianadiamillie [facility]. Nausea and vomiting ER f/u Pt [...] right, visual aura and vertigo. Additional information: [facility]. Depression This is a follow up [...] relieving factors are medication. Additional information: Mahogany [facility]. Thyroid problems The severity of the [...] fever and nausea. Additional information: Scheduled with lithograph press feeder on Feb 19 2023. Mahogany [facility]. F/u Depression & TSH Pt here to f/u with severe depression and recheck labs. PHQ-9 score of 15. Pt has appt with GI in [place] on 02/19/23. Pt states for the past [...] last visit or plan of care with [facility] gastroenterology. Mahogany [facility]. Acne The patient pres [...] son 2 months, not breast feeding. RGonzales [facility]. f/u depression Pt here for f/u depression. [...] currently being seen by gastroenterology at the [facility]. Patient states that a few [...] 2-3 days. Scheduled to follow up with [facility] Gastro on 07-04-21 and [facility] neurology on 07-05-21. Concerned her potassium may be low as it was previously low. Mahogany [facility] Screen Depression Within past mo nth, she has not been feeling herself. Feels depressed all the time. In the last year her eating and vomiting has been getting worse. Currently working with [facility] on this issue, but still [...] history of irregular menses, does not see [facility] or women's health. Attempted to use Midol with no improvement. Notes he menses does fluctuate between heavy and light. Mahogany [facility] f/u anxiety and depression Patie nt is [...] is going to go back to [facility]. She has an appt with them February 14. 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 Mahogany [facility]. hypertension Stomach Issues Pt here today [...] said no. No other issues or concernsTGrodi [facility] GERD The severity of the problem is [...] pain, hematuria and lightheadedness. Additional information: Mahogany [facility]. Thyroid problems The problem has not changed. Presenting symptoms include dysphagia and weight loss. Presenting symptoms do not include exophthalmus, fatigue, hoarseness, increased perspiration, insomnia, intolerance to cold, intolerance to heat, rapid heart beat, skin and nail changes and weight gain. Risk factors include age and female. Additional information: off thyroid medication since April. [facility]ogany [facility]. f/u Pt here today fo r [...] is prescribed a thyroid medication from her [employer]IST due to low level but cannot remember [...] psoriasis. Patient verbalizes history of psoriasis. RGonzales [facility] f/u meds Pt here today fo [...] no major events, recently moved out of [facility] in June. Previous visit to ER [...] No active symptoms at this time. RGonzaestella [facility] Functional Status Date Functional Assessmen t No [...] Vacuum twice a week.9 FOLLOW UP: as [id number] MEDICATIONS FLUTICASONE, Related to Nasal congestion 1. [...] follow up Related to Hypothyroidism, unspecified type Giving encouragement to exercise Related to Body mass index [BMI] 29.0-29.9, adult Weight-reducing diet education R elated to Body [...] weeks please contact the [facility] at [phone] and advise triage nurse. Related to Chronic [...] sleep hygiene.5. Well balanced healthy diet6. Use [facility] Hotline for any suicidal or homicidal ideationsTOLL FREE [phone]. Follow up: 2 months Related to Depression [...] to in 2 weeks please contact the [facility] at [phone] and advise triage nurse. Related to Chronic [...] sleep hygiene.5. Well balanced healthy diet6. Use [facility] Hotline for any suicidal or homicidal ideationsTOLL FREE [phone]. Follow up: 1 month Related to Anxiety and depression Giving encouragement [...] for worsening of symptoms4. FOLLOW UP WITH [facility] Related to Mastitis 1. Take medications as prescribed.2. Consider counseling3. Exercise regularly4. SLEEP WHEN INFANT SLEEPACCEPT HELP5. Well balanced healthy diet6. Use [facility] for any suicidal or homicidal ideationsTOLL FREE [phone]. Follow up: 1 month Related to Depression [...] Dr. Piña. . Related to Chronic nausea Giving encouragement to exercise Related to Body mass index [BMI] 26.0-26.9, adult Dietary management e ducation, guidance, and counseling Related to Body mass index [BMI] 26.0-26.9, adult 1. Take medications as prescribed.2. consider counseling3. Exercise regularly4. practice good sleep hygiene.5. Use [facility] Hotline for any suicidal or homicidal ideations6 Follow up 1 month Related to Anxiety and depression Giving encouragement to exercise Related to Body mass index [BMI] 27.0-27.9, adult Lifestyle education regarding di et Related [...] Exercise regularly4. practice good sleep hygiene.5. Use [facility] Hotline for any suicidal or homicidal ideations6 [...] adult 1. Refer to gastro2. Zofran PRN3. Green diet4 push fluids Related to Abdominal pain in female patient 1. Take medications as prescribed.2. counseling3. Exercise regularly4. practice good sleep hygiene.5. Use [facility] Hotline for any suicidal or homicidal ideations6 [...]
--- OUTSIDE RECORDS SUMMARY | 2025-03-31 05:15 | XMS_ITS ---
Author Organization [facility] Address [address] [place] [address] Care Team Providers Care Housekeeping Attendant Name Role Phone Kylah Valverde Primary Care Provider Brent Filomena Lange [phone] Allergies Allergen (clinical drug ingredient) Drug/Non Drug Allergy documented on EMR Reaction Allergy Type Onset Date Status amoxicillin Amoxicillin Unknown Drug Allergy Act juju Penicillin Unknown Drug Allergy Active REASON FOR VISIT B12 INJECTION, Pt brought cyanocobalamin for administration. Medications Medication SIG (Take, Route, Frequency, Duration) Notes Start Date End Date Status Pantoprazole Sodium 20 MG 1 tablet 1/2 t o 1 hour before morning meal Orally Once a day; Duration: 30 days Active Vitamin D (Ergocalciferol) 1.25 MG (40047 UT) 1 capsule Orally once a week; Duration: 30 days 01/26/2025 01/21/2026 Active Cyanocobalamin 1000 MCG/ML 1 mL Injectio n every 4 week; Duration: 28 days 01/26/2025 12/28/2025 Active Citalopram Hydrobromide 20 MG 1 tablet Oral Once a day; Duration: 30 days Active Phentermine HCl 15 MG 1 capsule Orally O nce a day; Duration: 30 days 03/31/2025 04/29/2025 Active metFORMIN HCl ER 500 MG 1 tablet with ev ening meal Orally Once a day; Duration: 30 days 03/03/2025 Active Synthroid 112 MCG 1 tablet in the morn ing on an empty stomach Orally Once a day; Duration: 90 days Active Social History AUDIT-C (Standard) Question Answer Notes Did you have a drink containing alcohol in the p ast year? No Points 0 Interpretation Negative Section Notes: VAPES Vital Signs Height 64 in 03/31/2025 Weight 220.0 lbs 03/31/2025 BMI 37.76 kg/m2 03/31/2025 Blood pressure systolic 124 mm Hg 03/31/20 25 Blood pressure diastolic 85 mm Hg 025 Oximetry 96 % 03/31/2025 Heart Rate 87 /min 03/31/2025 Encounters Encounter Location Date Provider Diagnosis [facility] [address] [place] [address] 03/31/2025 Filomena Kennedy Vitamin B12 defic iency E53.8 Assessments Encounter Date Diagnosis (ICD Code) Assessment Notes Treatment Notes Treatment Clinical Notes Section Notes 03/31/2025 Vitamin B12 deficiency (ICD-10 - E53.8) 03/31/2025 Other Pt brought in cynocobalamin for administration Cynocobalamin 1000mg/ml LOT [id number] EXP 07/2026 cynocobalamin given in Rt Deltoid IM by Bryan Dominguez CMA. Pt tolerated well. Plan Of Treatment Treatment Notes Assessment Notes Other Pt brought in cynocobalamin for administration Cynocobalamin 1000mg/ml LOT [id number] EXP 07/2026 cynocobalamin given in Rt Deltoid IM by Bryan Dominguez CMA. Pt tolerated well. Next Appt Details Provider Name:Kylah Valverde, 04/28/2025 08:15:00 AM, [address] [place], [address], Provider Name:Prakash James , 04/28/2025 11:15:00 AM, [address] [place], [address], Provider Name:Filomena Christopher Kennedy, 04/29/2025 09:00:00 AM, [address], [place], [address], Progress Notes * SNEHAL MOCTEZUMAB:[birth year] (29 yo F)Acc No.[id number]:03/31/2025 Progress Note Patient: Martin DEANDRA CARBAJAL Appointment Provider: Sissy Kennedy :1995 A ge:29 Y S ex:Female Date:03/31/2025 Address:[place], [id number] Pcp:Kylah Valverde Subjective: * Chief Complaints: * 1 . B12 INJECTION. 2. Pt brought cyanocobalamin for administration.. * Medical History: H YPOTHYROID. * Surgical History: G ALLBLADDER 2017. * Hospitalization/Major Diagno stic Procedure: D enies Past Hospitalization. * Family History: N o Family History documented.. * Social History: D rug/Alcohol: A KHUSHI-C (Standard) D id you have a drink containing alcohol in the past year? N o P oints 0 I nterpretation N egative V APES. * Medications: T aking Citalopram Hydrobromide 20 MG Tablet 1 tablet Oral Once a day , Taking Pantoprazole Sodium 20 MG Tablet Delayed Release 1 tablet 1/2 to 1 hour before morning meal Orally Once a day , Taking Cyanocobalamin 1000 MCG/ML Solution 1 mL Injection every 4 week , stop date 12/28/2025, Taking Vitamin D (Ergocalciferol) 1.25 MG (30624 UT) Capsule 1 capsule Orally once a week , stop date 01/21/2026, Taking Synthroid 112 MCG Tablet 1 tablet in the morning on an empty stomach Orally Once a day , Taking metFORMIN HCl ER 500 MG Tablet Extended Release 24 Hour 1 tablet with evening meal Orally Once a day , Taking Phentermine HCl 15 MG Capsule 1 capsule Orally Once a day , stop date 04/29/2025, Medication List reviewed and reconciled with the patient * Allergies: A moxicillin, Penicillin. Objective: * Vitals: H t: 64 in, Wt: 220.0 lbs, BMI:37.76Index, BP: 124/85 mm Hg, SaO2:96%, HR: 87 /min. Assessment: * Assessment: 1. V itamin B12 deficiency - E53.8 Plan: * Treatment: * Procedure Codes: J 3420 VITAMIN B12 * Images: * Electronic signature of ABEBA Emanuel FNP on 04/15/2025 at 06:21 AM EDT Sign off status: Pending * Appointment Provider: Sissy Kennedy Date: 0 03/31/2025 Generated for Luanne tyson/Kalani/Kaitlin on: 0 04/15/2025 06:21 AM EDT
--- OUTSIDE RECORDS SUMMARY | 2025-03-31 05:45 | XMS_ITS ---
Author Organization [facility] Serv[facility] es Address [address] [place] [address] Care Team Providers Care Lunch Cook Name Role Phone Kylah Valverde Primary Care Provider REASON FOR VISIT 1 MONTH F/U; FLORIADLMA Encounters Encounter Location Date Provider Diagnosis [facility] [address] [place] [address] 03/31/2025 Kylah Valverde Plan Of Treatment Next Appt Details Provider Name:Kylah Valverde, 04/28/2025 08:15:00 AM, [address], [place], [address], Provider Name:Prakash James , 04/28/2025 11:15:00 AM, [address], [place], [address], Provider Name:Filomena Kennedy, 04/29/2025 09:00:00 AM, [address], [place], [address], Progress Notes * SNEHAL MOCTEZUMAB:[birth year] (29 yo F)Acc No.[id number]:03/31/2025 Progress Notes Patient: Martin WEAVERJENI DEANDRA Provider: Araceli Valverde :1995 A ge:29 Y S ex:Female Date:03/31/2025 Address[address], [id number] Subjective: * Chief Complaints: * 1 . 1 MONTH F/U; FLORIDALMA. * Medical History: Objective: * Vitals: Assessment: Plan: * Treatment: * Images: * Electronic signature of River Valverde NP on 04/15/2025 at 06:22 AM EDT Sign off status: Pending * Provider: Araceli Valverde Date: 0 03/31/2025 Generated for Luanne tyson/Kalani/Kaitlin on: 04/15/2025 06:22 AM EDT
--- OUTSIDE RECORDS SUMMARY | 2025-04-06 05:30 | XMS_ITS ---
Author Organization [facility] Servic es Address [address] [place] [address] Care Team Providers Care Superintendent Horticulture Name Role Phone Kylah Valverde Primary Care Provider [phone] Allergies Allergen (clinical drug ingredient) Drug/Non Drug Allergy documented on EMR Reaction Allergy Type Onset Date Status amoxicillin Amoxicillin Unknown Drug Allergy Act juju Penicillin Unknown Drug Allergy Active REASON FOR VISIT 1 month f/u, FLORIDALMA Medications Medication SIG (Take, Route, Frequency, Duration) Notes Start Date End Date Status Synthroid 112 MCG 1 tablet in the morn ing on an empty stomach Orally Once a day; Duration: 90 days Active Vitamin D (Ergocalciferol) 1.25 MG (64651 UT) 1 capsule Orally once a week; Duration: 30 days 01/26/2025 01/21/2026 Active metFORMIN HCl ER 500 MG 1 tablet with ev ening meal Orally Once a day; Duration: 30 days 03/03/2025 Active Cyanocobalamin 1000 MCG/ML 1 mL Injectio n every 4 week; Duration: 28 days 01/26/2025 12/28/2025 Active Pantoprazole Sodium 20 MG 1 tablet 1/2 t o 1 hour before morning meal Orally Once a day; Duration: 30 days Active Phentermine HCl 15 MG 1 capsule Orally O nce a day; Duration: 30 days 03/31/2025 04/29/2025 Active Citalopram Hydrobromide 20 MG 1 tablet Oral Once a day; Duration: 30 days Active Social History AUDIT-C (Standard) Question Answer Notes Did you have a drink containing alcohol in the p ast year? No Points 0 Interpretation Negative Tobacco Control (Standard) Question Answer Notes Additional Findings: Tobacco user e-cigarette Section Notes: VAPES Vital Signs Height 64 in 04/06/2025 Weight 219 lbs 04/06/2025 BMI 37.59 kg/m2 04/06/2025 Temperature 98 degrees Fahrenheit 04/06/2025 Blood pressure systolic 11 mm Hg 04/06/20 25 Blood pressure diastolic 74 mm Hg 025 Oximetry 97 % 04/06/2025 Heart Rate 87 /min 04/06/2025 Respiratory Rate 20 /min 04/06/2025 Encounters Encounter Location Date Provider Diagnosis [facility] [address] [place] [address] 04/06/2025 Kylah Valverde Morbid (severe) o besity due to excess calories E66.01 Assessments Encounter Date Diagnosis (ICD Code) Assessment Notes Treatment Notes Treatment Clinical Notes Section Notes 04/06/2025 Morbid (severe) obesity due to excess calories (ICD-10 - E66.01) Refill sent on 03/31. Congratulated patient on 6 lb weight loss. Discussed with patient the prescribing rules for Adipex in [place]. Adipex is controlled and the patient must return every 30 days for a weight check and medication refill. Any failure to do so will result in termination of the treatment period and the patient must wait 6 months to restart. The patient is to report any side effects, especially if any chest pain, palpitations, elevated blood pressure or anxiety occur. Keep appointment with [facility] Dietition. Patient voiced understanding. Follow up in 1 month for weight check and possible dose increase. Plan Of Treatment Treatment Notes Assessment Notes Morbid (severe) obesity due to excess calories Refill sent on 03/31. Congratulated patie nt on 6 lb weight loss. Discussed with patient the prescribing rules for Adipex in [place]. Adipex is controlled and the patient must return every 30 days for a weight check and medication refill. Any failure to do so will result in termination of the treatment period and the patient must wait 6 months to restart. The patient is to report any side effects, especially if any chest pain, palpitations, elevated blood pressure or anxiety occur. Keep appointment with [facility] Dietition. Patient voiced understanding. Follow up in 1 month for weight check and possible dose increase. Next Appt Details Follow Up: 4 Weeks, Reason: Provider Name:Kylah Abram, 04/28/2025 08:15:00 AM, [address] [place], [address], Provider Name:Prakash Montesinoseusebia edgar, 04/28/2025 11:15:00 AM, [address] [place], [address], Provider Name:Filomena Kennedy, 04/29/2025 09:00:00 AM, [address] [place], [address], Progress Notes * RHIANNARONEN GutierrezTAYLORB:[birth year] (29 yo F)Acc No.[id number]:04/06/2025 Progress Notes Patient: DEANDRA MCKENZIE Provider: Araceli Valverde :1995 A ge:29 Y S ex:Female Date:04/06/2025 Address: [address] , [id number] Subjective: * Chief Complaints: * 1 month f/u, FLORIDALMA * HPI: D epression Screening: PHQ-2 (2015 Edition) L ittle interest or pleasure in doing things? N ot at all, F eeling down, depressed, or hopeless? N ot at all, T otal Score 0 . C onstitutional: Pt presents in office for a 1 month f/u on weight loss. Pt states she is taking metformin and addipex daily as presribed. Pt has lost 6lbs since last month. P t is watching what she eats and exercising. She does have an apt with [facility] next month. Patient denies any other concerns or questions related to health. * ROS: G eneral Review of Systems: General D enies fever, chills, weight loss. E yes D enies vision changes, no double vision or blurry vision. . H EENT D enies sore throat, ear pain., Denies fevers , chills, Denies nasal congestion, or pressure, Denies hoarseness, change in voice, difficulty swallowing. C ardiovascular D enies chest pain, palpitations, exertional dyspnea. R espiratory D enies cough, dyspnea, wheezing, sputum production, hemoptysis. G astrointestinal D enies abdominal pain, nausea, vomiting, Reports occasional diarrhea. Denies blood in stool. G enitourinary D enies urgency, frequency, dysuria, hematuria. M usculoskeletal D enies joint pain, myalgias. D ermatology D enies rashes or lesions. N eurological D enies any lightheadedness, dizziness, headache, new numbness or tingling in hands or feet. . * Medical History: * Surgical History: c holecystectomy * Hospitalization/Major Diagno stic Procedure: s ee surgical child * Family History: F ather: alive. S on(s): alive. M other: alive. 2 son(s) - healthy. . * Social History: G eneral: T ransition of Care E R/UC/hospital since last office visit? N o, S pecialist seen since last office visit? N o. B ehaviors affecting health P oor/Risky Behaviors: S econd Hand Smoke-. S ubstance abuse/mental health issues of patient/family P atient - C affeine Use. S ocial/Support Concerns P atient: N o. A bility to understand healthcare/treatment P atient: F air. C ommunication Barrier L anguage Barrier?: N o.? D rug/Alcohol: A KHUSHI-C (Standard) D id you have a drink containing alcohol in the past year? N o,?Points 0 , I nterpretation N egative. T obacco Use: T obacco Control (Standard) A dditional Findings: Tobacco user e -cigarette. V APES. * Medications: T akingCitalopram Hydrobromide 20 MG Tablet 1 tablet Oral Once a day Pantoprazole Sodium 20 MG Tablet Delayed Release 1 tablet 1/2 to 1 hour before morning meal Orally Once a day Cyanocobalamin 1000 MCG/ML Solution 1 mL Injection every 4 week , stop date 12/28/2025Vitamin D (Ergocalciferol) 1.25 MG (98888 UT) Capsule 1 capsule Orally once a week , stop date 01/21/2026Synthroid 112 MCG Tablet 1 tablet in the morning on an empty stomach Orally Once a day metFORMIN HCl ER 500 MG Tablet Extended Release 24 Hour 1 tablet with evening meal Orally Once a day Phentermine HCl 15 MG Capsule 1 capsule Orally Once a day , stop date 04/29/2025Medication List reviewed and reconciled with the patientTaking Citalopram Hydrobromide 20 MG Tablet 1 tablet Oral Once a day Taking Pantoprazole Sodium 20 MG Tablet Delayed Release 1 tablet 1/2 to 1 hour before morning meal Orally Once a day Taking Cyanocobalamin 1000 MCG/ML Solution 1 mL Injection every 4 week , stop date 12/28/2025Taking Vitamin D (Ergocalciferol) 1.25 MG (67816 UT) Capsule 1 capsule Orally once a week , stop date 01/21/2026Taking Synthroid 112 MCG Tablet 1 tablet in the morning on an empty stomach Orally Once a day Taking metFORMIN HCl ER 500 MG Tablet Extended Release 24 Hour 1 tablet with evening meal Orally Once a day Taking Phentermine HCl 15 MG Capsule 1 capsule Orally Once a day , stop date 04/29/2025Medication List reviewed and reconciled with the patient * Allergies: A moxicillinPenicillinno[Allergies Verified] Objective: * Vitals: H t: 64 in, Wt: 219 lbs, BMI:37.59Index, Temp: 98 F, BP: 11/74 mm Hg, SaO2:97%, HR: 87 /min, RR: 20 /min. * Examination: G eneral Examination: GENERAL APPEARANCE: A lert and oriented, in no acute distress, pleasant. F JACOB: s ymmetrical, well appearing. E YES: e xtra ocular muscles intact (EOMI) bilaterally, no discharge, pupils, equal, round, reactive to light and accomodation (PERRLA), sclera clear. C HEST: n ormal shape and expansion. N EUROLOGIC EXAM: a ppropriate for age, normal gait, alert and oriented x 3. S KIN: m oist, warm, unremarkable, no rash. PSYCH g ood eye contact, oriented to person, oriented to place, oriented to time, appropriate mood and affect. Assessment: * Assessment: 1. M orbid (severe) obesity due to excess calories - E66.01 (Primary) Plan: * Treatment: * Procedure Codes: 3 078F DIAST BP < 80 MM [id number] SYST BP LT 130 MM [id number] RVW MEDS BY RX/DR IN RCRD * Preventive Medicine: COUNSELING: C ommunication to patient: C ounseling for Nutrition Provided Y es, C ounseling for Physical Activity Provided Y es, B CT management provided Y es,?Nutrition/Dietary Counseling provided Y es. S moking Eusebia atient counselled on the dangers of tobacco use and urged to quit. 0 04/06/2025 yes. P atient Primary Pharmacy Discussion P atient agrees to primary pharmacy being set to [facility] N o, P atient Declines: Explain Why P atient explained that location of pharmacy is a barrier. * Follow Up: 4 Weeks * Images: * Sign off status: Completed true * Provider: Araceli Valverde Date: 0 04/06/2025 Generated for Luanne tyson/Kalani/Kaitlin on: 0 04/15/2025 06:21 AM EDT History and Physical Notes * HPI (History of Present Illness) Category Sub-Category Detail Notes Category Not es Depression Screening PHQ-2 (2015 Edition) Little interest or pleasure in doing things?: Not at all Feeling down, depressed, or hopeless?: N ot at all Total Score: 0 Examination Category Sub-Category Detail Notes Category Not es General Examination GENERAL APPEARANCE: Alert an d oriented, in no acute distress, pleasant SKIN: moist, warm, unremar kable, no rash NEUROLOGIC EXAM: appropriate for age, normal gait, alert and oriented x 3 CHEST: normal shape and exp ansion PSYCH good eye contact, or iented to person, oriented to place, oriented to time, appropriate mood and affect FACE: symmetrical, well ap pearing EYES: extra ocular muscles intact (EOMI) bilaterally, no discharge, pupils, equal, round, reactive to light and accomodation (PERRLA), sclera clear
[2025-04-08 12:52] VITALS: BP 117/79; PULSE 79; TEMP 36.6; O2SAT 99; BMI 38.6
[2025-04-15] VITALS (10 sets, daily range): BP systolic 108–126; BP diastolic 65–77; PULSE 76–100; TEMP 36.1–36.6; O2SAT 91–97
--- OUTSIDE RECORDS SUMMARY | 2025-04-15 06:21 | XMS_ITS | Clinical Summary ---
Author Organization [facility] Address [address] [place], [place] [address] Care Team Providers Care Greenskeeper Head Name Role Phone Thang Millan ALLISON Primary Care Provider +1 05-125-2015 Allergies Active Allergy Reactions Criticality Noted Date Comments Penicillins Rash 03/10/2021 Medications amitriptyline (ELAVIL) 10 mg tablet Take 1 tab at bed x 1 week, then take 2 tabs at bed x 1 week, then 3 tabs at bed and continue this dose 90 tablet 3 04/01/20 21 Active rizatriptan (MAXALT-SAW SETTER) 10 mg disintegrating tablet Take 1 tablet [...] N ot on file 03/10/2021 Data from: https://www.neighborhoodatlas.medicine.[facility].edu/. Last address used for calculation Not [...] - Td or Tdap) 05/12/2028 05/12/2018 Insurance [facility] MEDICAID Care Teams Greenskeeper Head Relationship Specialty Start Date End Date Thang Millan CNP [address] [place] [id number] PCP - General Emergency Medicine 03/10/21
--- OUTSIDE RECORDS SUMMARY | 2025-04-15 06:21 | XMS_ITS | Encounter Summary ---
Author Organization [facility] Address [address] [place] [address] Care Team Providers Care Director Of Materials Name Role Phone Unavailable Primary Care Provider Unavailabl e Encounter Details Date Type Department Care Team (Late st Contact Info) Description 09/09/2024 Abstract [facility] OB [address] [facility] [place] [address] Rashaun Amador DO [address] [place] [address] Dr Eugene Lopez, [id number] Social History Tobacco Use Types Packs/Day Years [...] [facility] OB [address] [facility] [place] [address] Michelle Vogel PA [address] [place] [address] 05/27/2025 8:30 AM EDT Office Visit [facility] OB [address] [facility] [place] [address] Michelle Vogel PA [address] [facility] [address] [place], [id number] documented as of this encounter Goals Goal Patient Goal Type Associated Problems Recent Progress Patient-Stated? Author Reminders Care Plan OB Reminders No Open Scheduling, Background documented as of this encounter Visit Diagnoses Not on filedocumented in this encounter Additional Health Concerns Active Problems Noted Date Diagnosed Date OB Reminders 07/17/2023 documented as of this encounter
--- OUTSIDE RECORDS SUMMARY | 2025-04-15 06:21 | XMS_ITS | Encounter Summary ---
Author Organization [facility] Address [address] [place] [address] Care Team Providers Care Classified Advertising Supervisor Name Role Phone Unavailable Primary Care Provider Unavailabl e Encounter Details Date Type Department Care Team (Late st Contact Info) Description 01/28/2024 Clinisync Result Encounter [facility] External Department Unsolicited Rashaun Amador DO [address] [facility] [address] [facility] [address] Eugene Lopez, [facility]11 Social History Tobacco Use Types [...] 04/22/2025 8:30 AM EDT Office Visit [facility] [address] [facility] [place] [address] Michelle Vogel PA [address] [place], [place] [address] 05/27/2025 8:30 AM EDT Office Visit [facility] [address] [facility] [place] [address] Michelle Vogel, PA [address] [place], [facility]11 documented as of this encounter [...] PM EDT Narrative 01/28/2024 3:17 [place] [address] XRay Report Signed Patient: DEANDRA MOCTEZUMA MR#: [id number] : 1995 Acct:[id number] Age/Sex: 28 / F ADM Date: 01/28/24 Loc: [facility] Attending Dr: Rashaun Amador D.O. Ordering Physician: Rashaun Amador D.O. Date of Service: 01/28/24 Procedure(s): XR chest 2V Accession Number(s): [id number] cc: Rashaun Amador D.O.; Physician,Non-Staff M.D. [facility] [place] [address] Patient Name: DEANDRA MOCTEZUMA MRN: [id number] date: 1995 Sex: F Assigned Patient Location: [facility] Current Patient Location: [facility] Accession/Order Number: [id number] Exam Date: 01/28/2024 14:10 Report Date: 01/28/2024 [...] M.D. Signed By: 01/28/241516 DD/ 13 TD/TT: Warehouse Delivery Manager: Procedure Note Radiology, Radiologist, - 01/29/[address] [place] [address] XRay Report Signed Patient: DEANDRA MOCTEZUMA DMR#: [id number] : 1995Acct:[id number] Age/Sex: 28 / FADM Date: 01/28/24 Loc: [facility] Attending Dr: Rashaun Amador D.O. Ordering Physician: Rashaun Amador D.O. Date of Service: 01/28/24 Procedure(s): XR chest 2V Accession Number(s): [id number] cc: Rashaun Amador D.O.; Physician,Non-Staff Daniel [facility] [place] [address] Patient Name: DEANDRA MOCTEZUMA MRN: [facility]:[id number] date: 1995 Sex: F Assigned Patient Location: [facility] Current Patient Location: [facility] Accession/Order Number: [id number] Exam Date: 01/28/2024 14:10 Report Date: 01/28/2024 [...] Menendez M.D. Signed By:01/28/241516 DD/ 13 TD/TT: Warehouse Delivery Manager: us Rashaun Amador DO [facility] Final Result documented in this encounter Visit Diagnoses Not on filedocumented in this encounter Additional Health Concerns Active Problems Noted Date Diagnosed Date OB Reminders 07/17/2023 documented as of this encounter
--- OUTSIDE RECORDS SUMMARY | 2025-04-15 06:21 | XMS_ITS | Clinical Summary ---
Author Organization [facility] Address [address] [place] [address] Care Team Providers Care Rn Anesthetist Name Role Phone Thang Millan APRN - [...] Plan of Treatment Not on file [place] [address] [place] [address] Care Teams Rn Anesthetist Relationship Specialty Start Date End Date Thang Millan APRN - NP PCP - General 08/09/20
--- OUTSIDE RECORDS SUMMARY | 2025-04-15 06:21 | XMS_ITS | Encounter Summary ---
Author Organization [facility] Address [address] [place] [address] Care Team Providers Care Tie Fastener Name Role Phone Unavailable Primary Care Provider Unavailabl e Encounter Details Date Type Department Care Team (Late st Contact Info) Description 07/04/2023 Abstract [facility] OB [address] [facility] [address] Rashaun Amador DO [address] [place] [address] Dr Eugene Lopez, [facility]11 Social History Tobacco Use Types Packs/Day Years [...] 8:30 AM EDT Office Visit [facility] [address] [facility] [place] [address] Michelle Vogel PA [facility] [place] [address] 05/27/2025 8:30 AM EDT Office Visit [facility] OB [address] [facility] [place] [address] Michelle Vogel PA [address] [facility] [address] [place], [facility]11 documented as of this encounter Visit Diagnoses Not on filedocumented in this encounter
--- OUTSIDE RECORDS SUMMARY | 2025-04-15 06:21 | XMS_ITS | Encounter Summary ---
Author Organization [facility] Address [address] [place] [address] Care Team Providers Care Seasoner Name Role Phone Unavailable Primary Care Provider Unavailabl e Encounter Details Date Type Department Care Team (Late st Contact Info) Description 09/10/2024 Abstract [facility] OB [address] [facility] [place] [address] Rashaun Amador DO [address] [place] [address] Dr Eugene Lopez, [facility] [address] Social History Tobacco Use Types Packs/Day Years [...] 04/22/2025 8:30 AM EDT Office Visit [facility] [address] [facility] [address] Michelle Vogel PA [address] [place] [address] 05/27/2025 8:30 AM EDT Office Visit [facility] OB [address] [facility] [place] [address] Michelle Vogel PA [address] [facility] [address] [place], [facility] [address] documented as of this encounter Goals Goal Patient Goal Type Associated Problems Recent Progress Patient-Stated? Author Reminders Care Plan OB Reminders No Open Scheduling, Background documented as of this encounter Visit Diagnoses Not on filedocumented in this encounter Additional Health Concerns Active Problems Noted Date Diagnosed Date OB Reminders 07/17/2023 documented as of this encounter
--- OUTSIDE RECORDS SUMMARY | 2025-04-15 06:21 | XMS_ITS | Patient Health Record ---
Author Organization [facility] Address [address] [place] [address] Care Team Providers Care Sand Conditioner Machine Name Role Phone Kylah Valverde Primary Care Provider Filomena Kennedy Unavailable [phone] Cara Cook Unavailable [phone] Becca Myrick Unavailable [phone] Allergies Allergen (clinical drug ingredient) Drug/Non Drug Allergy documented on EMR Reaction Allergy Type Onset Date Status amoxicillin Amoxicillin Unknown Drug Allergy Act juju Penicillin Unknown Drug Allergy Active Results Component Value Reference Range Notes CMP Reviewed date:01/11/2025 10:49:14 AM Interpretation: Performing Lab: Notes/Report: [facility] [address] [place] [address] Original Ordering Provider: ALLISON MYRICK GLUCOSE 85 55-199 mg/dL UREA NITROGEN 15 5-21 mg/dL CREATININE 0.8 0.5-1.3 mg/dL CALCIUM 9.2 8.9-11.1 mg/dL SODIUM 137 135-145 mmol/L POTASSIUM 4.5 3.5-5.3 mmol/L CHLORIDE 107 101-111 mmol/L CARBON DIOXIDE 25 21-31 mmol/L ALKALINE PHOSPHATASE 62 21-98 Int._Unit/L BILIRUBIN 0.5 0.0-1.1 mg/dL ALBUMIN 4.0 3.3-5.0 gm/dL PROTEIN 7.2 6.0-7.8 gm/dL ALANINE AMINOTRANSFERASE 15 6-46 Int._Unit/L ASPARTATE AMINOTRANSFERASE 17 5-43 Int._Unit /L UREA NITROGEN/CREATININE 19 10-20 No Units ANION GAP 10 6-16 mEq/L GLOBULIN 3.2 1.4-4.0 gm/dL ALBUMIN/GLOBULIN 1.3 1.1-2.2 Performing Lab see note [facility] unless otherwise specified [address] [place] [address] Cortisol Reviewed date:01/14/2025 01:04:22 PM Interpretation: Performing Lab: Notes/Report: [facility] [address] [place] [address] Original Ordering Provider: ALLISON MYRICK CORTISOL 15.8 6.2-19.4 microgram/dL Please Note: The reference interval and flagging for this test is for an AM collection. If this is a PM collection please use: Cortisol PM: 2.3-11.9 Performed at: [email or web address] [id number] PhD Caroline East Performing Lab see note [facility] unless otherwise specified [address] [place] [address] DHEAS Reviewed date:01/19/2025 03:40:57 PM Interpretation: Performing Lab: Notes/Report: [facility] [address] [place] [address] Original Ordering Provider: ALLISON MYRICK DEHYDROEPIANDROSTERONE SULFATE 51.4 8 4.8-378.0 microgram/dL Performed at: [email or web address] [id number] PhD Caroline [place] Performing Lab see note [facility] unless otherwise specified [address] [place] [address] HgbA1c Reviewed date:01/14/2025 01:06:28 PM Interpretation: Performing Lab: Notes/Report: [facility] [address] [place] [address] Original Ordering Provider: ALLISON MYRICK HEMOGLOBIN A1C/HEMOGLOBIN.TOTAL 4.9 <=5.9 % Performing Lab see note [facility] unless otherwise specified [address] [place] [address] Insulin Lvl Reviewed date:01/14/2025 01:04:32 PM Interpretation: Performing Lab: Notes/Report: [facility] [address] [place] [address] Original Ordering Provider: ALLISON MYRICK INSULIN 10.9 2.6-24.9 mcIU/mL Performed at: [address] [id number] PhD Caroline East Performing Lab see note [facility] unless otherwise specified [address] [place] [address] Lipid Panel Reviewed date:01/14/2025 01:04:55 PM Interpretation: Performing Lab: Notes/Report: [facility] [address] [place] [address] Original Ordering Provider: ALLISON MYRICK CHOLESTEROL 187 120-200 mg/dL CHOLESTEROL.IN HDL 62 '>= 60 LOW RISK' '<= 40 HIGH RISK' CHOLESTEROL.IN LDL 138 <=129 mg/dL TRIGLYCERIDE 79 <=149 mg/dL CHOLESTEROL.IN VLDL 16 7-40 mg/dL Performing Lab see note [facility] unless otherwise specified [address] [place] [address] T3 Total Reviewed date:01/14/2025 01:05:08 PM Interpretation: Performing Lab: Notes/Report: [facility] [address] [place] [address] Original Ordering Provider: ALLISON MYRICK TRIIODOTHYRONINE 128 71-180 ng/dL Performed at: [address] [id number] PhD Caroline East Performing Lab see note [facility] unless otherwise specified [address] [place], [place] [id number] T4 & TSH Reviewed date:01/14/2025 01:06:28 PM Interpretation: Performing Lab: Notes/Report: [facility] [address] [place], [place] [id number] Original Ordering Provider: LOGISTICS SYSTEM ENGINEER BECCA J ELEN THYROXINE 8.1 4.6-9.1 microgram/dL THYROTROPIN 1.04 0.34-5.60 mcIU/mL Performing Lab see note UNK - [facility] unless otherwise specified [address] [place] [address] Testosterone F&T Reviewed date:01/14/2025 01:05:21 PM Interpretation: Performing Lab: Notes/Report: [facility] [address] [place] [address] Original Ordering Provider: ALLISON MYRICK TESTOSTERONE.FREE 1.1 0.0-4.2 pg/mL Performed at: [facility] [address] [place] [address] [id number] PhD Caroline East Performed at: [facility] [address] [id number] MD [place] TESTOSTERONE 16 8-60 ng/dL Performing Lab see note [facility] unless otherwise specified [address] [place] [address] Vit B12 Reviewed date:01/11/2025 10:49:36 AM Interpretation: Performing Lab: Notes/Report: [facility] [address] [place] [address] Original Ordering Provider: ALLISON MYRICK COBALAMINS 162 50-1500 pg/mL Performing Lab see note [facility] unless otherwise specified [address] [place] [address] Vitamin D 25 Hydroxy Reviewed date:01/14/2025 01:06:19 PM Interpretation: Performing Lab: Notes/Report: [facility] [address] [place] [address] Original Ordering Provider: ALLISON MYRICK CALCIDIOL 11.4 30.0-100.0 ng/mL Performing Lab see note [facility] unless otherwise specified [address] [place] [address] eGFR Reviewed date:01/11/2025 10:48:58 AM Interpretation: Performing Lab: Notes/Report: [facility] [address] [place] [address] Original Ordering Provider: ALLISON MYRICK eGFR 101 >=59 mL/min/1.73 m2 Performing Lab see note [facility] unless otherwise specified [address] [place], [place] [address] Reason For Referral Reason Patient wants FIM pr ogram TE 03/03 Diagnosis 1 Acquired hypothyroid ism (E03.9) Diagnosis 2 Morbid (severe) obes ity due to excess calories (E66.01) Diagnosis 3 Unintended weight ga in (R63.5) Diagnosis 4 Body mass index [BMI ] 38.0-38.9, adult (Z68.38) Diagnosis 5 Obesity, class 2 (E6 6.812) Referral Organization [facility] Referring Provider First Name Becca Referring Provider Last Name Elen Referring Provider Speciality Family [facility] ctice Referred Provider Specialty Tool Storage Attendant Referral Priority Routine Medications Medication SIG (Take, Route, Frequency, Duration) Notes Start Date End Date Status Synthroid 112 MCG 1 tablet in the morn ing on an empty stomach Orally Once a day; Duration: 90 days Active Vitamin D (Ergocalciferol) 1.25 MG (06113 UT) 1 capsule Orally once a week; Duration: 30 days 01/26/2025 01/21/2026 Active Phentermine HCl 15 MG 1 capsule Orally O nce a day; Duration: 30 days 03/31/2025 04/29/2025 Active metFORMIN HCl ER 500 MG 1 tablet with ev ening meal Orally Once a day; Duration: 30 days 03/03/2025 Active Citalopram Hydrobromide 20 MG 1 tablet Oral Once a day; Duration: 30 days Active Cyanocobalamin 1000 MCG/ML 1 mL Injectio [...] Findings: Tobacco user e-cigarette Section Notes: VAPES VAPES VAPES VAPES VAPES VAPES VAPES Problems Problem Type SNOMED Code ICD Code Onset Dates Problem Status W/U Status Risk Notes Problem Morbid obesity (disorder) (213224352) Morbid (severe) obesity due to excess calories (E66.01) Active confirmed Problem Tobacco user (570551985) Nicotine dependence, unspecified, uncomplicated (F17.200) Active confirmed Problem Vitamin D deficiency (81006060) Vitamin D deficiency (E55.9) Active confirmed Problem Gastroesophageal reflux disease (disorder) (544052798) Chronic GERD (K21.9) Active confirmed Problem Acquired hypothyroidism (146911336) Acquired hypothyroidism (E03.9) Active confirmed Problem Vitamin A deficiency (45440786) Vitamin A deficiency (E50.9) Active confirmed Problem Generalized anxiety disorder (76862073) KYLIE (generalized anxiety disorder) (F41.1) Active confirmed Problem Body mass index 35.00 to 39.99 (595177703514162) Body mass index [BMI] 38.0-38.9, adult (Z68.38) Active confirmed Vital Signs Heart Rate 87 /min 04/06/2025 Temperature 98 degrees Fahrenheit 04/06/2025 Respiratory Rate 20 /min 04/06/2025 Oximetry 97 % 04/06/2025 Blood pressure diastolic 74 mm Hg 04/06/2025 Height 64 in 04/06/2025 Blood pressure systolic 11 mm Hg 04/06/2025 Weight 219 lbs 04/06/2025 BMI 37.59 kg/m2 04/06/2025 Encounters Encounter Location Date Provider Diagnosis [address] [address] 03/03/2025 Becca Myrick Acquired hypothyroidism E03.9 ; Morbid (severe) obesity due to excess calories E66.01 ; Body mass index [BMI] 38.0-38.9, adult Z68.38 ; Obesity, class 2 E66.812 and Nicotine dependence, unspecified, uncomplicated F17.[address] [address] 02/25/2025 Filomena Kennedy Vitamin B 12 deficiency E53.8 and Vitamin B deficiency E53.[address] [address] 03/31/2025 Filomena Kennedy Vitamin B12 deficien cy E53.8 [address] [place] [address] 01/28/2025 Cara Cook Vitamin D deficiency E55.9 [address] [place] [address] 01/08/2025 Becca Elen Acquired hypothyroidism E03.9 ; Chronic GERD K21.9 ; Unintended weight gain R63.5 ; Hair loss L65.9 ; KYLIE (generalized anxiety disorder) F41.1 and Nicotine dependence, unspecified, uncomplicated F17.200 [address] [place] [address] 04/06/2025 Kylah Valverde Morbid (severe) obesity due to excess calories E66.[address] [place] [address] 01/26/2025 [facility] Vitamin B 12 deficiency E53.8 ; Vitamin D deficiency E55.9 and Acquired hypothyroidism E03.[address] [place] [address] 12/15/2024 [place] [address] [place] [address] 01/19/2025 [place] [address] [place] [address] 02/25/2025 [place] [address] [place] [address] 03/03/[address]25 [place] [address] [place] [address] 03/23/2025 [place] [address] [place] [address] 03/30/2025 Kylah Valverde Morbid (severe) obesity due to excess calories E66.01 Assessments Encounter Date Diagnosis (ICD Code) Assessment Notes Treatment Notes Treatment Clinical Notes Section Notes 01/26/2025 Vitamin D deficiency (ICD-10 - E55.9) Pt labs discussed and patient is suffering from vitamin deficiencies and insufficiencies. This may be contributing to some of the symptoms that she has been experiencing. Will order supplements for the patient to take and we can recheck her labs in 9-12 months after starting treatment. We will still follow up with patient in 3 months for her chronic care for her DM 01/26/2025 Vitamin B 12 deficiency (ICD-10 - E53.8) Pt labs discussed and patient is suffering from vitamin deficiencies and insufficiencies. This may be contributing to some of the symptoms that she has been experiencing. Will order supplements for the patient to take and we can recheck her labs in 9-12 months after starting treatment. We will still follow up with patient in 3 months for her chronic care for her DM 03/03/2025 Morbid (severe) obesity due to excess calories (ICD-10 - E66.01) Start medication as discussed and making better choices and lifestyle changes. Encouraged to gently push yourself with increasing activity and trying healthy lifestyle options. FOllow up in 1 month as discussed Will put in FIM referral as we discussed today and patient will speak with partner about compounded semeglutide 04/06/2025 Morbid (severe) obesity due to excess calories (ICD-10 - E66.01) Refill sent on 03/31. Congratulated patient on 6 lb weight loss. Discussed with patient the prescribing rules for Adipex in [place]. Adipex is controlled and the patient must return every 30 days for a weight check and medication refill. Any failure to do so will result in termination of the treatment period and the patient must wait 6 months to restart. The patient is to report any side effects, especially if any chest pain, palpitations, elevated blood pressure or anxiety occur. Keep appointment with [facility]. Patient voiced understanding. Follow up in 1 month for weight check and possible dose increase. 03/31/2025 Vitamin B12 deficiency (ICD-10 - E53.8) 03/30/2025 Morbid (severe) obesity due to excess calories (ICD-10 - E66.01) 01/28/2025 Vitamin D deficiency (ICD-10 - E55.9) 03/03/2025 Acquired hypothyroidism (ICD-10 - E03.9) Keep taking medication as we discussed and follow up in 4 weeks. Will put in FIM consult 02/25/2025 Vitamin B 12 deficiency (ICD-10 - E53.8) Patient brought in 01/08/2025 Chronic GERD (ICD-10 - K21.9) Patient treatment regimen discussed and pertinent changes made. Follow up as discussed in 3 months. 01/08/2025 Acquired hypothyroidism (ICD-10 - E03.9) Labs drawn today as discussed. Will send medication refills today. If lab work comes back and medication needs to be adjusted will contact patient, otherwise, follow up in 3-4 months, or sooner if needed. 01/08/2025 Unintended weight gain (ICD-10 - R63.5) Discussed weigh issues, problems with losing weight, history of diets tried, lifestyle changes that they have tried over the years and successful weight loss and how much and how long the weight has stayed off. Discussed tests, treatment options and costs. Patient states understanding. Today we plan on doing labwork here in office as first steps. 02/25/2025 Vitamin B deficiency (ICD-10 - E53.9) 03/03/2025 Body mass index [BMI] 38.0-38.9, adult (ICD-10 - Z68.38) 01/26/2025 Acquired hypothyroidism (ICD-10 - E03.9) Discussed lab results and medication refills sent in 03/03/2025 Obesity, class 2 (ICD-10 - E66.812) 01/08/2025 Hair loss (ICD-10 - L65.9) 01/08/2025 KYLIE (generalized anxiety disorder) (ICD-10 - F41.1) Will continue medications today since patient states that she feels stable on doses 03/03/2025 Nicotine dependence, unspecified, uncomplicated (ICD-10 - F17.200) 01/08/2025 Nicotine dependence, unspecified, uncomplicated (ICD-10 - F17.200) 02/25/2025 Other Pt brought in vit B vial 1000 mcg/ml Lot [id number] 08/09 Given in left deltoid. 03/31/2025 Other Pt brought in cynocobalamin for administration Cynocobalamin 1000mg/ml LOT [id number] 07/2026 cynocobalamin given in Rt Deltoid IM by Bryan Dominguez CMA. Pt tolerated well. 01/28/2025 Other Pt brought in own medication Cyanocobalam 1000 mcg Lot [id number] Exp 07/2026 Rte Left Deltoid Ksenia JEREZ 03/03/2025 Other Body Mass Index : Care Instructions material was printed, Body Mass Index: Care Instructions material was published Plan Of Treatment Next Appt Details Provider Name:Kylah Valverde, 04/28/2025 08:15:00 AM, [address], [place], [address], Provider Name:Prakash edgar, 04/28/2025 11:15:00 AM, [address] [place], [place], [address], Provider Name:Filomena White Brent, 04/29/2025 09:00:00 AM, [address] [place], [place], [address], Insurance Providers Payer Name Payer Address Payer Phone Subscriber Number Group Number Insured Name Patient Relationship to Insured Coverage Start Date Coverage End Date [employer] [place] [employer] [address] CLAIMS DEPT [facility] [address] [id number] RHIANNARONENDEANDRA Self - patient is the insured [employer] [facility] [facility] [address] [place] [address] [phone] [id number] RHIANNARONENDEANDRA Self - patient is the insured 3 [employer] [place] [employer] [address] [address] [place] [address] [phone] [id number] RHIANNARONEN GutierrezDEANDRA Self - patient is the insured 3 [employer] [facility] [address] [place] [address] [phone] [id number] RHIANNADEANDRA Gutierrez Self - patient is the insured 3 Medical (General) History Medical History History ICD Code HYPOTHYROID GERD anxiety Vitamin D deficiency Vitamin A Deficiency Surgical History Surgery Date(Month/Year) cholecystectomy Hospitalization History Reason Date(Month/Year) child see surgical
--- OUTSIDE RECORDS SUMMARY | 2025-04-15 06:22 | XMS_ITS | Encounter Summary ---
Author Organization [facility] Address [address] [place] [address] Care Team Providers Care Clinic Administrator Name Role Phone Unavailable Primary Care Provider Unavailabl e Encounter Details Date Type Department Care Team (Late st Contact Info) Description 10/10/2023 Clinisync Result Encounter [facility] External Department Unsolicited Rashaun Amador DO [address] [facility] [address] Eugene Lopez, [facility]11 Social History Tobacco Use Types Packs/Day [...] 04/22/2025 8:30 AM EDT Office Visit [facility] OB [address] [place] [address] Michelle Vogel PA [address] [place], [place] [address] 05/27/2025 8:30 AM EDT Office Visit [facility] OB [address] [facility] [place] [address] Michelle Vogel, PA [address] [facility] [address] [facility] [address] [place], [facility]11 documented as of this encounter Goals [...] EST Narrative 10/10/2023 3:34 [place] [address] Ultrasound Report Signed Patient: DEANDRA MOCTEZUMA MR#: [id number] : 1995 Acct:[id number] Age/Sex: 27 / F ADM Date: Loc: [facility] 250- Attending Dr: Rashaun Amador D.O. Ordering Physician: Rashaun Amador D.O. Date of Service: 10/10/23 Procedure(s): US OB BPP w non-stress Accession Number(s): [id number] cc: Rashaun Amador D.O.; Physician,Non-Staff M.DPatricia The [address] [address] Patient Name: DEANDRA MOCTEZUMA MRN: [id number] date: 1995 Sex: F Assigned Patient Location: [facility] Current Patient Location: [facility] Accession/Order Number: [id number] Exam Date: 10/10/2023 15:11 Report Date: 10/10/2023 [...] biophysical profile score 8.0. Electronically authenticated by: SUSHILA ASIF Date: 10/10/2023 15:32 Dictated By: Sushila Asif M.D. Signed By: 10/10/23 1534 DD/ 1532 TD/TT: Potato Grader: Procedure Note Radiology, Radiologist, MD - 10/10/2023 [place] [address] Ultrasound Report Signed Patient: DEANDRA MOCTEZUMA DMR#: [id number] : 1995Acct:[id number] Age/Sex: 27 FADM Date: Loc: [facility] 250-[address]: Rashaun Amador D.O. Ordering Physician: Rashaun Amador D.O. Date of Service: 10/10/23 Procedure(s): US OB BPP w non-stress Accession Number(s): [id number] cc: Rashaun Amador D.O.; Physician,Non-Staff Daniel The [place] [id number] Patient Name: DEANDRA MOCTEZUMA MRN: [id number] date: 1995 Sex: F Assigned Patient Location: [facility] Current Patient Location: [facility] Accession/Order Number: [id number] Exam Date: 10/10/2023 15:11 Report Date: 10/10/2023 [...] biophysical profile score 8.0. Electronically authenticated by: SUSHILA ASIF Date: 10/10/2023 15:32 Dictated By: Sushila Asif M.D. Signed By:10/10/23 1534 DD/ 1532 TD/TT: Potato Grader: us Rashaun Perry DO [facility] Final Result documented in this encounter Visit Diagnoses Not on filedocumented in this encounter Additional Health Concerns Active Problems Noted Date Diagnosed Date OB Reminders 07/17/2023 documented as of this encounter
--- OUTSIDE RECORDS SUMMARY | 2025-04-15 06:22 | XMS_ITS | Encounter Summary ---
Author Organization [facility] Address [address] [place] [address] Care Team Providers Care Shaving Machine Operator Name Role Phone Unavailable Primary Care Provider Unavailabl e Encounter Details Date Type Department Care Team (Late st Contact Info) Description 11/28/[address] [facility] OB [address] [facility] [place] [address] Christy Munguia LPN [address] [facility]11 Social History Tobacco Use Types Packs/Day [...] 04/22/2025 8:30 AM EDT Office Visit [facility] OB [address] [facility] [place] [address] Michelle Vogel PA [address] [place] [address] [place] [address] 05/27/2025 8:30 AM EDT Office Visit [facility] [address] [place] [address] [place] [address] Michelle Vogel PA [address] [place] [address] Dr [place], [facility]11 documented as of this encounter Goals Goal Patient Goal Type Associated Problems Recent Progress Patient-Stated? Author Reminders Care Plan OB Reminders No Open Scheduling, Background documented as of this encounter Visit Diagnoses Not on filedocumented in this encounter Additional Health Concerns Active Problems Noted Date Diagnosed Date OB Reminders 07/17/2023 documented as of this encounter
--- OUTSIDE RECORDS SUMMARY | 2025-04-15 06:22 | XMS_ITS | Encounter Summary ---
Author Organization [facility] Address [address] [place] [address] Care Team Providers Care Imaging Science Professor Name Role Phone Unavailable Primary Care Provider Unavailabl e Encounter Details Date Type Department Care Team (Late st Contact Info) Description 11/06/2023 Clinisync Result Encounter [facility] External Department Unsolicited Rashaun Amador DO [address] [facility] [address] [place], [facility]11 Social History Tobacco Use Types Packs/Day [...] 04/22/2025 8:30 AM EDT Office Visit [facility] OB [address] [facility] [facility] [place] [address] Michelle Vogel PA [address] [place], [place] [address] 05/27/2025 8:30 AM EDT Office Visit [facility] OB [address] [facility] [place] [address] Michelle Vogel, PA [address] [facility] [address] [place], [facility]11 documented as of this encounter Goals [...] AM EST Narrative 11/06/2023 11:23 [place] [address] Ultrasound Report Signed Patient: DEANDRA MOCTEZUMA MR#: [id number] : 1995 Acct:[id number] Age/Sex: 28 / F ADM Date: 11/06/23 Loc: US Attending Dr: Rashaun Amador D.O. Ordering Physician: Rashaun Amador D.O. Date of Service: 11/06/23 Procedure(s): US OB growth Accession Number(s): [id number] cc: Rashaun Amador D.O.; Physician,Non-Staff M.DPatricia [address] [address] Patient Name: DEANDRA MOCTEZUMA MRN: [id number] date: 1995 Sex: F Assigned Patient Location: US Current Patient Location: US Accession/Order Number: [id number] Exam Date: 11/06/2023 10:51 Report Date: 11/06/2023 [...] Signed By: 11/06/23 1123 DD/ 1120 TD/TT: Metallurgical Engineer: Procedure Note Radiology, Radiologist, MD - 12/19/2023 [place] [address] Ultrasound Report Signed Patient: DEANDRA MOCTEZUMA DMR#: [id number] : 1995Acct:[id number] Age/Sex: 28 / FADM Date: 11/06/23 Loc: US Attending Dr: Rashaun Amador D.O. Ordering Physician: Rashaun Amador D.O. Date of Service: 11/06/23 Procedure(s): US OB growth Accession Number(s): [id number] cc: Rashaun Amador D.O.; Physician,Non-Staff Daniel The [place] [id number] Patient Name: DEANDRA MOCTEZUMA MRN: [id number] date: 1995 Sex: F Assigned Patient Location: US Current Patient Location: US Accession/Order Number: [id number] Exam Date: 11/06/2023 10:51 Report Date: 11/06/2023 [...] July 15, 2007. Electronically authenticated by: MERNA SILAV Date: 11/06/2023 11:20 Dictated By: Merna Silva M.D. Signed By:11/06/23 1123 DD/ 1120 TD/TT: Metallurgical Engineer: us Rashaun Amador DO [facility] Final Result documented in this encounter Visit Diagnoses Not on filedocumented in this encounter Additional Health Concerns Active Problems Noted Date Diagnosed Date OB Reminders 07/17/2023 documented as of this encounter
--- OUTSIDE RECORDS SUMMARY | 2025-04-15 06:22 | XMS_ITS | Encounter Summary ---
Author Organization [facility] Address [address] [place] [address] Care Team Providers Care Utility Worker Driver Name Role Phone Unavailable Primary Care Provider Unavailabl e Encounter Details Date Type Department Care Team (Late st Contact Info) Description 11/27/2023 Clinisync Result Encounter [facility] External Department Unsolicited Rashaun Amador DO [address] [place], [facility]11 Social History Tobacco Use Types [...] 04/22/2025 8:30 AM EDT Office Visit [facility] OB [address] [place] [address] Michelle Vogel PA [address] [place], [place] [address] 05/27/2025 8:30 AM EDT Office Visit [facility] OB [address] [facility] [address] Michelle Vogel, PA [address] [place], [facility]11 documented as of this encounter [...] EST Narrative 11/27/2023 11:09 [place] [address] Ultrasound Report Signed Patient: DEANDRA MOCTEZUMA MR#: [id number] : 1995 Acct:[id number] Age/Sex: 28 / F ADM Date: 11/27/23 Loc: US Attending Dr: Rashaun Amador D.O. Ordering Physician: Rashaun Amador D.O. Date of Service: 11/27/23 Procedure(s): US OB BPP w non-stress Accession Number(s): [id number] cc: Rashaun Amador D.O.; Physician,Non-Staff M.DPatricia The [place] [id number] Patient Name: DEANDRA MOCTEZUMA MRN: [id number] date: 1995 Sex: F Assigned Patient Location: [facility] Current Patient Location: Accession/Order Number: [id number] Exam Date: 11/27/2023 10:00 Report Date: 11/27/2023 [...] Signed By: 11/27/23 1109 DD/ 110 TD/TT: Farm Equipment Maintenance Supervisor: Procedure Note Radiology, Radiologist, MD - 12/19/2023 [place] [address] Ultrasound Report Signed Patient: DEANDRA MOCTEZUMA DMR#: [id number] : 1995Acct:[id number] Age/Sex: 28 / FADM Date: 11/27/23 Loc: US Attending Dr: Rashaun Amador D.O. Ordering Physician: Rashaun Amador D.O. Date of Service: 11/27/23 Procedure(s): US OB BPP w non-stress Accession Number(s): [id number] cc: Rashaun Amador D.O.; Physician,Non-Staff Daniel The [place] [id number] Patient Name: DEANDRA MOCTEZUMA MRN: [id number] date: 1995 Sex: F Assigned Patient Location: [facility] Current Patient Location: Accession/Order Number: [id number] Exam Date: 11/27/2023 10:00 Report Date: 11/27/2023 [...] M.D. Signed By:11/27/23 1109 DD/ 1106 TD/TT: Farm Equipment Maintenance Supervisor: us Rashaun Perry DO [facility] Final Result documented in this encounter Visit Diagnoses Not on filedocumented in this encounter Additional Health Concerns Active Problems Noted Date Diagnosed Date OB Reminders 07/17/2023 documented as of this encounter
--- OUTSIDE RECORDS SUMMARY | 2025-04-15 06:22 | XMS_ITS | Encounter Summary ---
Author Organization [facility] Address [address] [place] [address] Care Team Providers Care [employer] Consultant Name Role Phone Unavailable Primary Care Provider Unavailabl e Encounter Details Date Type Department Care Team (Late st Contact Info) Description 09/03/2023 Clinisync Result Encounter [facility] External Department Unsolicited Rashaun Amador DO [address] [facility] [address] [facility] [address] [place], [facility]11 Social History Tobacco Use Types [...] [address] [facility] [place] [phone] Michelle Vogel PA [address] [place] [address] 05/27/2025 8:30 AM EDT Office Visit [facility] OB [address] [place] [address] Michelle Vogel PA [address] [place], [facility]11 documented as of this encounter [...] Narrative 09/03/2023 9:34 PM EST The [address] [address] Ultrasound Report Signed Patient: DEANDRA MOCTEZUMA MR#: [id number] : 1995 Acct:[id number] Age/Sex: 27 / F ADM Date: 09/03/23 Loc: US Attending Dr: Rashaun Amador D.O. Ordering Physician: Rashaun Amador D.O. Date of Service: 09/03/23 Procedure(s): US OB growth Accession Number(s): [id number] cc: Rashaun Amador D.O.; Physician,Non-Staff M.D. The [address] [address] Patient Name: DEANDRA MOCTEZUMA MRN: [id number] date: 1995 Sex: F Assigned Patient Location: US Current Patient Location: US Accession/Order Number: [id number] Exam Date: 09/03/2023 11:08 Report Date: 09/03/2023 [...] M.D. Signed By: 09/03/232136 DD/ 33 TD/TT: Loader Operator Supervisor: Procedure Note Radiology, Radiologist, MD - 09/04/2023 [place] [address] Ultrasound Report Signed Patient: DEANDRA MOCTEZUMA DMR#: [id number] : 1995Acct:[id number] Age/Sex: 27 / FADM Date: 09/03/23 Loc: US Attending Dr: Rashaun Amador D.O. Ordering Physician: Rashaun Amador D.O. Date of Service: 09/03/23 Procedure(s): US OB growth Accession Number(s): [id number] cc: Rashaun Amador D.O.; Physician,Non-Staff Daniel The [address] [address] Patient Name: DEANDRA MOCTEZUMA MRN: [id number] date: 1995 Sex: F Assigned Patient Location: US Current Patient Location: US Accession/Order Number: [id number] Exam Date: 09/03/2023 11:08 Report Date: 09/03/2023 [...] Asif M.D. Signed By:09/03/232136 DD/ 33 TD/TT: Loader Operator Supervisor: us Rashaun Amador DO [facility] Final Result documented in this encounter Visit Diagnoses Not on filedocumented in this encounter Additional Health Concerns Active Problems Noted Date Diagnosed Date OB Reminders 07/17/2023 documented as of this encounter
--- OUTSIDE RECORDS SUMMARY | 2025-04-15 06:22 | XMS_ITS | Encounter Summary ---
Author Organization [facility] Address [address] [place] [address] Care Team Providers Care Machine Sole Leveler Name Role Phone Unavailable Primary Care Provider Unavailabl e Encounter Details Date Type Department Care Team (Late st Contact Info) Description 10/30/2023 Clinisync Result Encounter [facility] External Department Unsolicited Rashaun Amador DO [address] [facility] [facility] [facility] [address] [place], [facility]11 Social History Tobacco Use Types Packs/Day Years [...] 04/22/2025 8:30 AM EDT Office Visit [facility] OB [address] [facility] [place] [address] Michelle Vogel PA [address] [place], [place] [address] 05/27/2025 8:30 AM EDT Office Visit [facility] OB [address] [facility] [place] [address] Michelle Vogel, PA [address] [place], [facility]11 documented as of this encounter Goals Goal [...] AM EST Narrative 10/30/2023 8:54 [place] [address] Ultrasound Report Signed Patient: DEANDRA MOCTEZUMA MR#: [id number] : 1995 Acct:[id number] Age/Sex: 28 / F ADM Date: 10/30/23 Loc: US Attending Dr: Rashaun Amador D.O. Ordering Physician: Rashaun Amador D.O. Date of Service: 10/30/23 Procedure(s): US OB BPP w non-stress Accession Number(s): [id number] cc: Rashaun Amador D.O.; Physician,Non-Staff M.DPatricia The [place] [id number] Patient Name: DEANDRA MOCTEZUMA MRN: [id number] date: 1995 Sex: F Assigned Patient Location: [facility] Current Patient Location: Accession/Order Number: [id number] Exam Date: 10/30/2023 08:10 Report Date: 10/30/2023 [...] M.D. Signed By: 10/30/23 0854 DD/ TD/TT: Test Analyst: Procedure Note Radiology, Radiologist, MD - 12/19/2023 [place] [address] Ultrasound Report Signed Patient: DEANDRA MOCTEZUMA DMR#: [id number] : 1995Acct:[id number] Age/Sex: 28 / FADM Date: 10/30/23 Loc: US Attending Dr: Rashaun Amador D.O. Ordering Physician: Rashaun Amador D.O. Date of Service: 10/30/23 Procedure(s): US OB BPP w non-stress Accession Number(s): [id number] cc: Rashaun Amador D.O.; Physician,Non-Staff Daniel The [place] [id number] Patient Name: DEANDRA MOCTEZUMA MRN: [id number] date: 1995 Sex: F Assigned Patient Location: [facility] Current Patient Location: Accession/Order Number: [id number] Exam Date: 10/30/2023 08:10 Report Date: 10/30/2023 [...] M.D. Signed By:10/30/23 0854 DD/ 0852 TD/TT: Test Analyst: us Rashaun Amador DO [facility] Final Result documented in this encounter Visit Diagnoses Not on filedocumented in this encounter Additional Health Concerns Active Problems Noted Date Diagnosed Date OB Reminders 07/17/2023 documented as of this encounter
--- OUTSIDE RECORDS SUMMARY | 2025-04-15 06:22 | XMS_ITS | Encounter Summary ---
Author Organization [facility] Address [address] [place] [address] Care Team Providers Care Race And Sports Book Writer Name Role Phone Unavailable Primary Care Provider Unavailabl e Encounter Details Date Type Department Care Team (Late st Contact Info) Description 04/08/2025 Clinisync Result Encounter NOMS External Department Unsolicited Rashaun Amador DO [address] [facility] [address] [place], [facility]11 Social History Tobacco Use Types Packs/Day [...] 04/22/2025 8:30 AM EDT Office Visit [facility] OB [address] [facility] [address] Michelle Vogel PA [address] [place], [place] [address] 05/27/2025 8:30 AM EDT Office Visit [facility] OB [address] [facility] [place] [address] Michelle Vogel, PA [address] [facility] [address] [place], [facility]11 documented as of this encounter Goals Goal Patient Goal Type Associated Problems Recent Progress Patient-Stated? Author Reminders Care Plan OB Reminders No Open Scheduling, Background documented as of this encounter Procedures Procedure Name Priority Date/Time Associated Diagnosis Comments [facility] PROTHROMBIN TIME INR W/O COUM Routine 04/08/2025 12:50 PM EDT [facility] LIVER PANEL Routine 04/08/2025 12:5 0 PM EDT [facility] APTT Routine 04/08/2025 12:50 PM EDT ALL TYPE AND SCREEN Routine 04/08/2025 1 2:50 PM EDT ALL CBC WITH AUTO DIFF Routine 04/08/2025 12:50 PM EDT ALL BASIC METABOLIC PANEL Routine 04/08/2025 12:50 PM EDT documented in this encounter Results * ALL TYPE AND SCREEN (04/08/2025 12:50 PM EDT) BLOOD TYPE O Positive TBH ANTIBODY SCREEN NEGATIVE TBH 04/08/2025 12:5 0 PM EDT 04/08/2025 12:53 PM EDT Narrative [facility] - 04/08/2025 2:09 PM EDT [facility] , [place] Rashaun Perry DO [facility] Final Result [facility] TB * ALL BASIC METABOLIC PANEL (04/08/2025 12:50 PM EDT) SODIUM 138 136 - 145 mmol/L TBH POTASSIUM 3.8 3.5 - 5.1 mmol/L TBH CHLORIDE 104 98 - 107 mmol/L TBH CARBON DIOXIDE 28.3 21.0 - 32.0 mmol/L TBH ANION GAP 9.5 TBH GLUCOSE 90 74 - 106 mg/dL TBH BLOOD UREA NITROGEN 9.0 7.0 - 18.0 mg/dL TBH CREATININE 0.86 0.55 - 1.02 mg/dL TBH TBH EGFR-AF TURKISH >60 >=60 mL/min/1.7 3m 2 TBH TBH EGFR-NON AF TURKISH >60 >=60 mL/min/1.7 3m 2 TBH BUN CREATININE RATIO 10.5 TBH CALCIUM 8.8 8.5 - 10.1 mg/dL TBH 04/08/2025 12:5 0 PM EDT 04/08/2025 12:53 PM EDT Narrative [facility]INISYNC - 04/08/2025 1:22 PM EDT us Rashaun Perry DO [facility] Final Result [facility] TB * (ABNORMAL) [facility] LIVER PANEL (04/08/2025 12:50 PM EDT) BILIRUBIN TOTAL 0.2 0.2 - 1.0 mg/dL TBH BILIRUBIN DIRECT 0.1 0.0 - 0.2 mg/dL TBH ASPARTATE AMINO TRANSFERASE 14(L) 15 - 37 U/L TBH ALANINE AMINOTRANSFERASE 19 14 - 59 U/L TBH ALKALINE PHOSPHATASE 83 46 - 116 U/L TBH TOTAL PROTEIN 7.5 6.4 - 8.2 g/dL TBH ALBUMIN LEVEL 3.2(L) 3.4 - 5.0 g/dL TBH GLOBULIN 4.3 g/dL TBH ALBUMIN GLOBULIN RATIO 0.7 TBH 04/08/2025 12:5 0 PM EDT 04/08/2025 12:53 PM EDT Narrative [facility]IN[facility]NC - 04/08/2025 1:22 PM EDT us Rashaun Perry DO CLIN[facility] Final Result [facility] TB * [facility] APTT (04/08/2025 12:50 PM EDT) PARTIAL THROMBOPLASTIN TIME 28.3 22.3 - 36.2 sec TBH 04/08/2025 12:5 0 PM EDT 04/08/2025 12:53 PM EDT Narrative [facility] - 04/08/2025 1:16 PM EDT [facility] Final Result Performing Organization Address [facility]/ZIP Co de Phone Number [facility] * [facility] PROTHROMBIN TIME INR W/O COUM (04/08/2025 12:50 PM EDT) Pathologist [facility] PROTHROMBIN TIME 10.1 9.0 - 11.6 sec [facility] INR 0.95 TB Comment: DESIRED INR: 2.0-3.0 CONDITIONS NOT LISTED BELOW 2.5-3.5 FOR PROSTHETIC HEART VALVE REPLACEMENT 2.5-3.5 RECURRENT THROMBOSIS 04/08/2025 12:5 0 PM EDT 04/08/2025 12:53 PM EDT Narrative CLINISYNC - 04/08/2025 1:16 PM EDT [facility] Final Result Performing Organization Address [facility]/ZIP Co de Phone Number [facility] * ALL CBC WITH AUTO DIFF (04/08/2025 12:50 PM EDT) Pathologist [facility] TB WBC 6.9 4.0 - 11.0 10 3/uL TBH TB RBC 4.68 4.20 - 5.40 10 6/uL TBH TB HGB 13.9 12.0 - 16.0 g/dL TB TB HCT 40.7 36.0 - 48.0 % TB TB MCV 87.0 81.0 - 99.0 fL TB TB MCH 29.7 26.7 - 34.0 pg TBH TB MCHC 34.2 29.9 - 35.2 g/dL TB TB RDW 12.5 11.0 - 15.0 % TB TB PLT 307 150 - 450 10 3/uL TB TB MPV 9.7 9.5 - 13.5 fL TB NEUTROPHILS PERCENT AUTO 70.8 43.0 - 75.0 % TBH LYMPHOCYTES PERCENT AUTO 20.5 20.5 - 60.0 % TBH MONOCYTES PERCENT AUTO 6.0 1.7 - 12.0 % TBH TBH EO % 2.0 0.9 - 7.0 % TBH BASOPHILS PERCENT AUTO 0.6 0.2 - 2.0 % TBH IMMATURE GRANULOCYTES PCT AUTO 0.1 0.0 - 0.5 % TBH NEUTROPHILS ABSOLUTE AUTO 4.9 1.4 - 6.5 10 3/uL TBH LYMPHOCYTES ABSOLUTE AUTO 1.4 1.2 - 3.8 10 3/uL TBH MONOCYTES ABSOLUTE AUTO 0.4 0.3 - 0.8 10 3/uL TBH TBH EO # 0.1 0.0 - 0.7 10 3/uL TBH BASOPHILS ABSOLUTE AUTO 0.0 0.0 - 0.1 10 3/uL TBH IMMATURE GRANULOCYTES ABS AUTO 0.01 0.00 - 0.03 10 3/uL TBH 04/08/2025 12:5 0 PM EDT 04/08/2025 12:53 PM EDT Narrative CLINISYNC - 04/08/2025 1:07 PM EDT us Rashaun Amador DO CLINIS[facility]NC Final Result [facility] documented in this encounter Visit Diagnoses Not on filedocumented in this encounter Additional Health Concerns Active Problems Noted Date Diagnosed Date OB Reminders 07/17/2023 documented as of this encounter
--- OUTSIDE RECORDS SUMMARY | 2025-04-15 06:22 | XMS_ITS | Encounter Summary ---
Author Organization [facility] Address [address] [place] [address] Care Team Providers Care Qualitative Field Project Manager Name Role Phone Unavailable Primary Care Provider Unavailabl e Encounter Details Date Type Department Care Team (Late st Contact Info) Description 08/06/2023 Clinisync Result Encounter [facility] External Department Unsolicited Rashaun Amador DO [address] [facility] [address] Eugene Lopez, [facility]11 Social History Tobacco Use Types Packs/Day [...] EDT Office Visit [facility] [address] [facility] [place] [phone] Michelle Vogel PA [address] [facility] [place] [address] 05/27/2025 8:30 AM EDT Office Visit [facility] [address] [place] [address] Michelle Vogel PA [address] [facility] [address] [place], [facility]11 documented as of this encounter Goals [...] EDT Narrative 08/06/2023 9:42 PM EDT The [address] [address] Ultrasound Report Signed Patient: DEANDRA MOCTEZUMA MR#: [id number] : 1995 Acct:[id number] Age/Sex: 27 / F ADM Date: 08/06/23 Loc: US Attending Dr: Rashaun Amador D.O. Ordering Physician: Rashaun Amador D.O. Date of Service: 08/06/23 Procedure(s): US OB anatomy Accession Number(s): [id number] cc: Rashaun Amador D.O.; Physician,Non-Staff M.D. The [address] [address] Patient Name: DEANDRA MOCTEZUMA MRN: [id number] date: 1995 Sex: F Assigned Patient Location: US Current Patient Location: US Accession/Order Number: [id number] Exam Date: 08/06/2023 07:45 Report Date: 08/06/2023 [...] M.D. Signed By: 08/06/232144 DD/ 41 TD/TT: Nurse Anesthesia Program Director: Procedure Note Radiology, Radiologist, - 08/07/2023 [place] [address] Ultrasound Report Signed Patient: DEANDRA MOCTEZUMA [facility]#: [id number] : 1995Acct:[id number] Age/Sex: 27 / FADM Date: 08/06/23 Loc: US Attending Dr: Rashaun Amador D.O. Ordering Physician: Rashaun Amador D.O. Date of Service: 08/06/23 Procedure(s): US OB anatomy Accession Number(s): [id number] cc: Rashaun Amador D.O.; Physician,Non-Staff Daniel [address] [address] Patient Name: DEANDRA MOCTEZUMA MRN: [id number] date: 1995 Sex: F Assigned Patient Location: US Current Patient Location: US Accession/Order Number: [id number] Exam Date: 08/06/2023 07:45 Report Date: 08/06/2023 [...] Asif M.D. Signed By:08/06/232144 DD/ 41 TD/TT: Nurse Anesthesia Program Director: us Rashaun Perry DO [facility] Final Result documented in this encounter Visit Diagnoses Not on filedocumented in this encounter Additional Health Concerns Active Problems Noted Date Diagnosed Date OB Reminders 07/17/2023 documented as of this encounter
--- OUTSIDE RECORDS SUMMARY | 2025-04-15 06:22 | XMS_ITS | Clinical Summary ---
Author Organization [facility] Address [address] [place] [address] Care Team Providers Care Service Desk Technician Name Role Phone Unavailable Primary Care Provider [...] Encounters Date Type Department Care Team Description 04/08/2025 Clinisync Result Encounter [facility] External Department Unsolicited Rashaun Amador DO 03/17/2025 9:10 AM EDT Consult [facility] OB [address] [place] [address] [place] [address] Rashaun Amador DO Pre-op examination; Pelvic pain; Dysmenorrhea; Dyspareunia in female; Menorrhagia with irregular cycle 03/17/2025 Bamboo flowsheet [facility] OB [address] [place] [phone] Rashaun Amador DO 02/04/2025 2:20 PM EDT Office Visit [facility] [address] [place] [phone] Rashaun Amador DO Menorrhagia with regular cycle; Crampy pain associated with menses; History of endometrial ablation; Dysmenorrhea 02/04/2025 Bamboo flowsheet [facility] [address] [place] [phone] Rashaun Amador DO from Last 3 Months [...] 04/22/2025 8:30 AM EDT Office Visit [facility] [address] [place] [phone] Michelle Vogel PA [address] [place] [address] [place] [address] 05/27/2025 8:30 AM EDT Office Visit [facility] [address] [place] [address] Michelle Vogel PA [address] [facility] [place] [address] Health Maintenance Due Date Last Done Comments Influenza Vaccine (#1) 2025 3, 09/25/2022, 08/31/2020, Additional history exists Cervical Cancer Screening 04/30/2028 HPV/Cotest 04/30/2028 Pap Smear 04/30/2028 04/30/2023 Goals Goal Patient Goal Type Associated Problems Recent Progress Patient-Stated? Author Reminders Care Plan OB Reminders No Open Scheduling, Background Procedures Procedure Name Priority Date/Time Associated Diagnosis Comments ALL TYPE AND SCREEN Routine 04/08/2025 1 2:50 PM EDT ALL BASIC METABOLIC PANEL Routine 04/08/2025 12:50 PM EDT [facility] LIVER PANEL Routine 04/08/2025 12:5 0 PM EDT [facility] APTT Routine 04/08/2025 12:50 PM EDT [facility] PROTHROMBIN TIME INR W/O COUM Routine 04/08/2025 12:50 PM EDT ALL CBC WITH AUTO DIFF Routine 04/08/2025 12:50 PM EDT POCT URINALYSIS DIPSTICK Routine 02/04/2025 2:42 PM EDT Menorrhagia with regular cycle Crampy pain associated with menses PAP SMEAR Routine 04/30/2023 12:00 AM EDT from Last 3 Months or Most Recently Relevant to Health Maintenance Results * [facility] PROTHROMBIN TIME INR W/O COUM (04/08/2025 12:50 PM EDT) PROTHROMBIN TIME 10.1 9.0 - 11.6 sec TBH TBH INR 0.95 TBH Comment: DESIRED INR: 2.0-3.0 CONDITIONS NOT LISTED BELOW 2.5-3.5 FOR PROSTHETIC HEART VALVE REPLACEMENT 2.5-3.5 RECURRENT THROMBOSIS 04/08/2025 12:5 0 PM EDT 04/08/2025 12:53 PM EDT Narrative [facility] - 04/08/2025 1:[address] [facility] Perry DO [facility] Final Result [facility] * (ABNORMAL) [facility] LIVER PANEL (04/08/2025 12:50 PM EDT) BILIRUBIN [...] Narrative [facility] - 04/08/[facility]25 1:[facility] * [facility] APTT (04/08/2025 12:50 PM EDT) PARTIAL THROMBOPLASTIN TIME 28.3 22.3 - 36.2 sec TB 04/08/2025 12:5 0 PM EDT 04/08/2025 12:53 PM EDT Narrative [facility] - 04/08/2025 1:16 PM EDT us Rashaun Perry DO [facility] Final Result [facility] TB * ALL TYPE AND SCREEN (04/08/2025 12:50 PM EDT) BLOOD TYPE O Positive [facility] ANTIBODY SCREEN NEGATIVE [facility] 04/08/2025 12:5 0 PM EDT 04/08/2025 12:53 PM EDT Narrative [facility] - 04/08/2025 2:09 PM EDT [facility] , us Rashaun Perry DO [facility] Final Result [facility] TB * ALL CBC WITH AUTO DIFF (04/08/2025 12:50 PM EDT) Pathologist [facility] TB WBC 6.9 4.0 - 11.0 10 3/uL TBH TB RBC 4.68 4.20 - 5.40 10 6/uL TBH TBH HGB 13.9 12.0 - 16.0 g/dL TB TB HCT 40.7 36.0 - 48.0 % TBH TB MCV 87.0 81.0 - 99.0 fL TB TB MCH 29.7 26.7 - 34.0 pg TBH TB MCHC 34.2 29.9 - 35.2 g/dL TB TB RDW 12.5 11.0 - 15.0 % TBH TBH PLT 307 150 - 450 10 3/uL TBH TBH MPV 9.7 9.5 - 13.5 fL TBH NEUTROPHILS PERCENT AUTO 70.8 43.0 - 75.0 [...] Narrative [facility] - 04/08/2025 1:07 PM EDT Rashaun Perry DO [facility] Final Result Performing Organization Address [facility]/ZIP Co de Phone Number [facility] * ALL BASIC METABOLIC PANEL (04/08/2025 12:50 [...] 0.55 - 1.02 mg/dL TBH TBH EGFR-AF PERUVIAN >60 >=60 mL/min/1.7 3m 2 TBH TBH EGFR-NON AF PERUVIAN >60 >=60 mL/min/1.7 3m 2 TBH BUN CREATININE RATIO 10.5 TBH CALCIUM 8.8 8.5 - 10.1 mg/dL TBH 04/08/2025 12:5 0 PM EDT 04/08/2025 12:53 PM EDT Narrative [facility] - 04/08/2025 1:22 PM EDT Rashaun Perry DO [facility] Final Result [facility] * POCT urinalysis dipstick manually resulted (02/04/2025 2:42 PM EDT) Color, UA Yellow Clarity, UA Clear Glucose, UA Negative Negative - 1999(110) ++++ mg/dL Bilirubin, UA Negative Negative - 4(70) +++ mg/dL Ketones, UA Negative Negative - 160(16) ++++ mg/dL Spec Grav, UA 1.025 1 - 1.03 Blood, UA Negative Negative - 50 Tod/mcL pH, UA 5.5 5 - 9 Protein, UA Negative Negative - 1999(20) ++++ mg/dL Urobilinogen, UA 0.2 0.2 - 12 mg/dL Leukocytes, UA Trace Negative - 500+++ Rosemarie/mcL Nitrite, UA Negative Negative - Positive Urine 02/04/2025 2:42 PM EDT us Rashaun Perry DO POINT OF CARE TEST ENTER/EDIT OR DERABLES Final Result * Pap Smear (04/30/2023 12:00 AM EDT) Swab Cervical swab / Unknown us Rashaun Perry DO LAB CYTOLOGY ORDERABLES Final Re sult EXTERNAL LAB from Last 3 Months or Most Recently Relevant to Health Maintenance Additional Health Concerns Active Problems Noted Date Diagnosed Date OB Reminders 07/17/2023 Insurance [facility] MEDICAID
--- OUTSIDE RECORDS SUMMARY | 2025-04-15 06:22 | XMS_ITS | Encounter Summary ---
Author Organization [facility] Address [address] [place] [address] Care Team Providers Care Channeler Name Role Phone Unavailable Primary Care Provider Unavailabl e Encounter Details Date Type Department Care Team (Late st Contact Info) Description 11/06/2024 Abstract [facility] OB [address] [place] [address] Rashaun Amador DO [address] [place] [address] Dr Eugene Lopez, [facility]11 Social History Tobacco Use Types [...] 04/22/2025 8:30 AM EDT Office Visit [facility] [address] [place] [address] Michelle Vogel PA [facility] [place] [address] 05/27/2025 8:30 AM EDT Office Visit [facility] OB [address] [place] [address] Michelle Vogel PA [address] [facility] [address] [place], [facility]11 documented as of this encounter [...]
--- OUTSIDE RECORDS SUMMARY | 2025-04-15 06:22 | XMS_ITS | CCD ---
Author Organization [facility] Care Team Providers Care Non Destructive Testing Technician Name Role Phone NKECHI TORRES Unavailable Unavaila BAKARI Liriano Attending Unavailable THAGN MILLAN Primary Care Unavailable No, Physician Primary [...] Jung Attending Unavailable Gopi Rodriguez Attending Unavailable Bebeto Vazandakingston Barron Attending UnavailKristian Garvin Attending Unavailable Laura Noel Attending Unavailable Kristian Guillermo Attending Unavailable DO Julia Haywood Attending Unavaila Rashaun Bolton Admitting Unavailable Rashaun AMADOR Attending Unavailable Татьяна, Roverto VPatricia Admitting Unavailerum Vaz Roverto V. Attending UnavailZORAN Fuentes Admitting Unavailable ZORAN MYRICK Attending Unavailable Luis Carlos Jung Admitting Unavailable Luis Carlos Jung Attending Unavailable Perry, Rashaun Attending Unavailable [facility] Perry, Rashaun Admitting Unavailable Perry, Rashaun Attending Unavailable Perry, Rashaun Admitting Unavailable ELEN, ZORAN Admitting Unavailable ELEN, ZORAN Attending Unavailable ELEN, ZORAN Primary Care Unavailable ELEN, ZORAN Admitting Unavailable ELEN, ZORAN Attending Unavailable ELEN, ZORAN Admitting Unavailable ELEN, ZORAN Attending Unavailable ELEN, ZORAN Primary Care Unavailable ELEN, ZORAN J Primary Care Physician [phone] PERRY, RASHAUN Attending Unavailable PERRY, RASHAUN Attending Unavailable PERRY, RASHAUN Attending Unavailable Allergies Allergy Classification Reported Allergen(s) Allergy Type Date of Onset Reaction(s) Facility (20 sources) amoxicillin; Translations: [AMOXICILLIN] Drug Allergy 7 [facility] Repository (20 sources) penicillin; Translations: [PENICILLIN] Drug Allergy 7 [facility] Repository (20 sources) Penicillins; Translations: [PENICILLINS] Propensity to adverse reactions to drug 0 [place], [place] (18 sources) Penicillin G procaine Allergy to substance 3 [facility] (2 sources) Penicillin; Translations: [penicillin G] Drug Allergy 1 [facility] Medications Current Medications Medication Drug Class(es) [...] day(s), # 15 cap(s), Refills(s) 0, Pharmacy: [facility], 162.6, cm, 05/21/23 20:50:00 EDT, Height/Length Dosing, 75.3, kg, 05/21/23 20:50:00 EDT, Weight Dosing Start Date: 05/21/23 Stop Date: 05/26/23 Status: Ordered Start: 08-18-2022 End: 08-25-2022 take 1 capsule by mouth four times daily Keflex 500 mg Cap 500 mg = 1 cap(s), Oral, QID, X 7 day(s), # 28 cap(s), Refills(s) 0, Pharmacy: [facility] 1986, 162.5, cm, 08/18/22 4:15:00 EDT, Height/Length Dosing, 80, kg, 08/18/22 4:15:00 EDT, Weight Dosing Start Date: 08/18/22 Stop Date: 08/25/22 Status: Ordered Start: 07-17-2022 End: 07-22-2022 take 1 capsule by mouth every twelve hours Keflex 500 mg Cap 500 mg = 1 cap(s), Oral, q12hr, X 5 day(s), # 10 cap(s), Refills(s) 0, Pharmacy: [facility], 162.5, cm, 07/17/22 9:09:00 EDT, Height/Length Dosing, 80, kg, 07/17/22 9:09:00 EDT, Weight Dosing Start Date: 07/17/22 Stop Date: 07/22/22 Status: Ordered Start: 04-02-2022 End: 04-09-2022 take 1 capsule by mouth four times daily Keflex 500 mg Cap 500 mg = 1 cap(s), Oral, QID, X 7 day(s), # 28 cap(s), Refills(s) 0, Pharmacy: [facility] 1986, 160, cm, 04/02/22 6:28:00 EDT, Height/Length Dosing, 69.1, kg, 04/02/22 6:35:00 EDT, Weight Dosing Start Date: 04/02/22 Stop Date: 04/09/22 Status: Ordered cimetidine 300 mg oral tablet (3 sources) Histamine-2 Receptor Antagonist Start: 04-02-2022 cimetidine 300 mg oral tablet Refills(s) 0 Start Date: 04/02/22 Status: Ordered citalopram 20 mg oral tablet (18 sources) Serotonin Reuptake Inhibitor Start: 11-15-2023 End: 12-16-2024 take 1 tablet by mouth once daily citalopram (CeleXA) 20 MG tablet Indications: Anxiety, generalized Take 1 tablet (20 mg) by mouth Daily 360 tablet 12/17/2023 Active Colace (3 sources) Start: 08-18-2023 Colace Refills(s) 0 Start Date: 08/18/23 Status: Ordered docusate sodium 50 mg / sennosides, senior living 8.6 mg oral tablet (6 sources) senna-docusate (Colace 2-IN-1) 8.6-50 MG tablet famotidine 20 mg oral tablet (6 sources) Histamine-2 Receptor Antagonist Start: 05-21-2023 take 1 tablet by mouth once daily Pepcid 20 mg Tab 20 mg = 1 tab(s), Oral, Daily, # 14 tab(s), Refills(s) 0, Pharmacy: [facility] 1986, 162.6, cm, 05/21/23 20:50:00 EDT, Height/Length Dosing, 75.3, kg, 05/21/23 20:50:00 EDT, Weight Dosing Start Date: 05/21/23 Status: Ordered ibuprofen 600 mg oral tablet (11 sources) Nonsteroidal Anti-inflammatory Drug Start: 09-27-2022 take 1 tablet by mouth every six hours ibuprofen 600 mg Tab 600 mg = 1 tab(s), Oral, q6hr, # 15 tab(s), Refills(s) 0, Pharmacy: [facility] 1986, 162.5, cm, 09/24/22 21:51:00 EST, Height/Length Dosing, 78.6, kg, 09/24/22 21:51:00 EST, Weight Dosing Start Date: 09/27/22 Status: Ordered levothyroxine sodium 0.125 mg oral tablet (20 sources) l-Thyroxine Start: 11-04-2023 take 1 tablet by mouth once daily levothyroxine 125 mcg (0.125 mg) Tab 125 mcg = 1 tab(s), Oral, Daily, Refills(s) 0 Start Date: 11/04/23 Status: Ordered Repeat number: 1 Start: 09-25-2023 End: 02-25-2024 take 1 tablet by mouth before mealtime levothyroxine (Synthroid) 125 MCG tablet Indications: Hypothyroidism (acquired) Take 1 tablet (125 mcg) by [...] dizziness, # 15 tab(s), Refills(s) 0, Pharmacy: [id number], 163, cm, 11/30/21 7:18:00 EST, Height/Length [...] mg megestrol acetate 20 mg oral tablet (3 sources) Progestin Start: 11-06-2024 End: 12-06-2024 take [...] tablets total) 36 tablet 11/06/2024 12/06/2024 Active osmotic 24 hr metFORMIN hydrochloride 500 mg extended release oral tablet (2 sources) Biguanide take 1 tablet by mouth at mealtime, then take 1 tablet by mouth every twenty-four hours metFORMIN, OSM, (Fortamet) 500 MG 24 hr tablet Take 500 mg by mouth in the evening. Take with meals Do not crush, chew, or split. Active metoclopramide 5 mg oral tablet (2 [...] , # 12 tab(s), Refills(s) 0, Pharmacy: [facility], 163, cm, 09/05/22 20:14:00 [...] day(s), # 6 tab(s), Refills(s) 0, Pharmacy: [facility], 163, cm, 06/28/23 10:39:00 EDT, Height/Length Dosing, 74.8, kg, 06/28/23 10:39:00 EDT, Weight Dosing Start Date: 06/28/23 Stop Date: 06/30/23 Status: Ordered phentermine hydrochloride 37.5 mg oral tablet (2 sources) Sympathomimetic Amine Anorectic take 1 tablet by mouth before mealtime phentermine (Adipex-P) 37.5 MG tablet Take 37.5 mg by mouth in the morning. Take before meals. Active Multivitamins (20 sources) Start: 03-03-2022 take 1 tablet by mouth once daily Multivitamins 1 tab(s), Oral, Daily, Refill(s) 0 Start Date: 03/03/22 Status: Ordered Repeat number: 1 Start: 03-03-2022 take 1 tablet by kenn th once daily Multivitamins 1 tab(s), Oral, Daily, Refill(s) 0 Start Date: 03/03/22 Status: Ordered MV-Min-Fe Fum-FA-DH A ( 1 PO) (17 sources) End: 03-17-2025 MV-Min-Fe Fum-FA-DH A ( 1 PO) Take 1 each by mouth in the morning. 03/17/2025 Discontinued (Therapy completed) MV-Min- Fe Fum-FA-DHA ( 1 PO) Take [...] q8hr, # 12 tab(s), Refills(s) 0, Pharmacy: [facility], 162.6, cm, 05/21/23 20:50:00 [...] Problem Date Documented Date Episodic/Chronic Abdominal pain (6 sources) Abdominal pain; Translations: [Unspecified abdominal pain] [...] sources) Bacterial meningitis 05-02-2016 Episodic Menstrual disorders (11 sources) Menorrhagia; Translations: [Excessive and frequent menstruation [...] vaginal bleeding, unspecified] Onset: 07-25-2023 Chronic Other female genital disorders (1 source) Pain in female genitalia on intercourse; Translations: [Unspecified dyspareunia] 03-17-2025 Chronic Other nutritional; endocrine; and metabolic disorders [...] weeks gestation of ] Onset: 08-18-2022 Episodic Residual codes; unclassified (2 sources) History of endometrial ablation; Translations: [Other specified postprocedural states] 02-04-2025 Episodic Substance-related disorders (20 sources) Smoker 04-30-2014 [...] (20 sources) Patient encounter status 07-06-2021 Unclassified (18 sources) OB Reminders Onset: 07-17-2023 07-17-2023 Urinary [...] source) Cervicalgia; Translations: [Cervicalgia] Onset: 07-23-2017 Episodic Unclassified (20 sources) Onset: 03-23-2022 Resolved: 03-15-2024 03-23-2022 Viral infection (1 source) Disease caused by 2019-nCoV; Translations: [COVID-19] Onset: 09-05-2022 Results Test Name Value Interpretation Reference Range Facility ALL CBC WITH AUTO DIFFon BASOPHILS ABSOLUTE AUTO 0 [facility] Basophils/100 WBC (Bld) 0.6 % 0.2 - 2.0 % [facility] Eosinophils/100 WBC (Bld) 2 % 0.9 - 7.0 % [facility] Erythrocyte distribution width (RBC) [Ratio] 12.5 % 11.0 - 15.0 % [facility] Hematocrit (Bld) [Volume fraction] 40.7 % 36.0 - 48.0 % [facility] Hemoglobin (Bld) [Mass/Vol] 13.9 g/dL 12.0 - 16.0 g/dL [facility] IMMATURE GRANULOCYTES ABS AUTO 0.01 [facility] Immature granulocytes/100 WBC (Bld) 0.1 % 0.0 - 0.5 % [facility] LYMPHOCYTES ABSOLUTE AUTO 1.4 [facility] Lymphocytes/100 WBC (Bld) 20.5 % 20.5 - 60.0 % [facility] MCH (RBC) [Entitic mass] 29.7 pg 26.7 - 34.0 pg [facility] MCHC (RBC) [Mass/Vol] 34.2 g/dL 29.9 - 35.2 g/dL [facility] MCV (RBC) [Entitic vol] 87 fL 81.0 - 99.0 fL [facility] MONOCYTES ABSOLUTE AUTO 0.4 [facility] Monocytes/100 WBC (Bld) 6 % 1.7 - 12.0 % [facility] NEUTROPHILS ABSOLUTE AUTO 4.9 [facility] Neutrophils/100 WBC (Bld) 70.8 % 43.0 - 75.0 % [facility] Platelet mean volume (Bld) [Entitic vol] 9.7 fL 9.5 - 13.5 fL [facility] EO # 0.1 [facility] PLT 307 [facility] TB RBC 4.68 [facility] TB WBC 6.9 [facility] Urinalysis macro (dipstick) panel (U)on 02-04-2025 Bilirubin, UA Negative Negative - 4(70) +++ mg/dL [facility] Blood, UA Negative Negative - 50 Tod/mcL [facility] Clarity, UA Clear [facility] Color, UA Yellow [facility] Glucose, UA Negative Negative - 1999(110) ++++ mg/dL [facility] Interpretation and review of laboratory results Normal [facility] Ketones, UA Negative Negative - 160(16) ++++ mg/dL [facility] Leukocytes, UA Trace Negative - 500+++ Rosemarie/mcL [facility] Nitrite, UA Negative Negative - Positive [facility] pH, UA 5.5 5 - 9 [facility] Protein, UA Negative Negative - 1999(20) ++++ mg/dL [facility] Spec Grav, UA 1.025 1 - 1.03 [facility] Urobilinogen, UA 0.2 0.2 - 12 mg/dL [facility] Cortisolon 01-13-2025 Cortisol [Mass/Vol] 15.8 microgram/dL Invalid Interpretation Code 6.2-19.4 [facility] Comment on above: Result Comment: Matt valdez Note: The reference interval and flagging for this test is for an AM collection. If this is a PM collection please use: Cortisol PM: 2.3-11.9 Performed at: [address] [id number] PhD Caroline East Performed By: #### 2 [id number] #### [facility] [address] [place] [address] DHEASon 01-13-2025 DHEA-S [Mass/Vol] 51.4 microgram/dL Low 84.8-378.0 [facility] Comment on above: Result Comment: Perf ormed at: [address] [id number] PhD Caroline [place] Performed By: #### 1 [id number] #### [facility] [address] [place] [address] Insulin Lvlon 01-13-2025 Insulin Qn 10.9 u[IU]/mL Invalid Interpretation Code 2.6-24.9 [facility] Comment on above: Result Comment: Perf ormed at: [address] [id number] PhD Caroline [place] Performed By: #### 1 [id number] #### [facility] [address] [place] [address] T3 Totalon 01-13-2025 T3 [Mass/Vol] 128 ng/dL Invalid Interpretation Code 71-180 [facility] Comment on above: Result Comment: [facility] [id number] PhD Caroline East Performed By: #### 1 [id number] #### [facility] [address] [place] [address] Testosterone F&Ton Testosterone [Mass/Vol] 16 ng/dL Invalid Interpretation Code 8-60 [facility] Comment on above: Performed By: #### 1 [id number] #### [facility] [address] [place] [address] Testosterone Free [Mass/Vol] 1.1 pg/mL Invalid Interpretation Code 0.0-4.2 [facility] Comment on above: Result Comment: Perf ormed at: [facility] [id number] PhD Caroline East Performed at: [address] [id number] MD Crow Estes Performed By: #### 1 [id number] #### [facility] [address] [place] [address] CHEMISTRYOrdered By: SYSTEM SYSTEM on 01-10-2025 25-hydroxyvitamin D3 [Mass/Vol] 11.4 ng/mL Low 30.0 - 100.0 ng/mL [facility] Albumin [Mass/Vol] 4.0 g/dL Normal 3.3 - 5.0 gm/dL [facility] Albumin/Globulin [Mass ratio] 1.3 {ratio} Normal 1.1 - 2.2 [facility] ALP [Catalytic activity/Vol] 62 [iU]/d Normal 21 - 98 Int._Unit/L [facility] ALT No additional P-5'-P [Catalytic activity/Vol] 15 [iU]/d Normal 6 - 46 Int._Unit/L [facility] Anion gap [Moles/Vol] 10 mmol/L Normal 6 - 16 mEq/L [facility] AST [Catalytic activity/Vol] 17 [iU]/d Normal 5 - 43 Int._Unit/L [facility] Bilirubin [Mass/Vol] 0.5 mg/dL Normal 0.0 - 1 .1 mg/dL [facility] Calcium [Mass/Vol] 9.2 mg/dL Normal 8.9 - 11. 1 mg/dL [facility] Chloride [Moles/Vol] 107 mmol/L Normal 101 - 1 11 mmol/L [facility] Cholesterol [Mass/Vol] 187 mg/dL Normal 120 - 200 mg/dL [facility] Cholesterol in HDL [Mass/Vol] 62 mg/dL Invalid Interpretation Code [facility] Comment on above: Result Comment: '>= 60 LOW RISK' '<= 40 HIGH RISK' Cholesterol in LDL [Mass/Vol] 138 mg/dL High <=129mg/dL [facility] Cholesterol in VLDL [Mass/Vol] 16 mg/dL Normal 7 - 40 mg/dL [facility] CO2 [Moles/Vol] 25 mmol/L Normal 21 - 31 mmol/L [facility] Cobalamin (Vitamin B12) [Mass/Vol] 162 pg/mL Normal 50 - 1500 pg/mL [facility] Creatinine [Mass/Vol] 0.8 mg/dL Normal 0.5 - 1.3 mg/dL [facility] eGFR 101 mL/min/1.73 m2 Normal >=59mL/mi n/ 1.73 m2 [facility] Globulin (S) [Mass/Vol] 3.2 g/dL Normal 1.4 - 4.0 gm/dL [facility] Glucose [Mass/Vol] 85 mg/dL Normal 55 - 199 mg/dL [facility] Potassium [Moles/Vol] 4.5 mmol/L Normal 3.5 - 5.3 mmol/L [facility] Protein [Mass/Vol] 7.2 g/dL Normal 6.0 - 7.8 gm/dL [facility] Sodium [Moles/Vol] 137 mmol/L Normal 135 - 145 mmol/L [facility] T4 [Mass/Vol] 8.1 ug/dL Normal 4.6 - 9.1 mcg/dL [facility] Triglyceride [Mass/Vol] 79 mg/dL Normal <=149mg/dL [facility] TSH Qn 1.04 m[IU]/L Normal 0.34 - 5.60 mcIU/mL [facility] Urea nitrogen [Mass/Vol] 15 mg/dL Normal 5 - 21 mg/dL [facility] Urea nitrogen/Creatinine [Mass ratio] 19 mg/mg Normal 10 - 20 [facility] CHEMISTRYOrdered By: Tess Rodriguez on 01-10-2025 HbA1c (Bld) [Mass fraction] 4.9 % Normal <=5.9% [facility]Auto[facility] CMPon 01-10-2025 Albumin [Mass/Vol] 4.0 g/dL Normal 3.3-5.0 [facility] Comment on above: Performed By: #### 2 [id number] #### [facility] [address] [place] [address] Albumin/Globulin (S) [Mass conc ratio] 1.3 Normal 1.1-2.2 [facility] Comment on above: Performed By: #### 2 [id number] #### [facility] [address] [place] [address] ALP [Catalytic activity/Vol] 62 Int._Unit/L Normal 21-98 [facility] Comment on above: Performed By: #### 2 [id number] #### [facility] [address] [place] [address] ALT No additional P-5'-P [Catalytic activity/Vol] 15 Int._Unit/L Normal 6-46 [facility] Comment on above: Performed By: #### 2 [id number] #### [facility] [address] [place] [address] Anion gap [Moles/Vol] 10 mmol/L Normal 6-16 [facility] Comment on above: Performed By: #### 2 [id number] #### [facility] [address] [place] [address] AST [Catalytic activity/Vol] 17 Int._Unit/L Normal 5-43 [facility] Comment on above: Performed By: #### 2 [id number] #### [facility] [address] [place] [address] Bilirubin [Mass/Vol] 0.5 mg/dL Normal 0.0-1.1 [facility] Comment on above: Performed By: #### 2 [id number] #### [facility] [address] [place] [address] Calcium [Mass/Vol] 9.2 mg/dL Normal 8.9-11.1 [facility] Comment on above: Performed By: #### 2 [id number] #### [facility] [address] [place] [address] Chloride [Moles/Vol] 107 mmol/L Normal 101-111 [facility] Comment on above: Performed By: #### 2 [id number] #### [facility] [address] [place] [address] CO2 [Moles/Vol] 25 mmol/L Normal 21-31 [facility] Comment on above: Performed By: #### 2 [id number] #### [facility] [address] [place] [address] Creatinine [Mass/Vol] 0.8 mg/dL Normal 0.5-1.3 [facility] Comment on above: Performed By: #### 2 [id number] #### [facility] [address] [place] [address] Globulin (S) [Mass/Vol] 3.2 g/dL Normal 1.4-4.0 [facility] Comment on above: Performed By: #### 2 [id number] #### [facility] [address] [place] [address] Glucose [Mass/Vol] 85 mg/dL Normal 55-199 [facility] Comment on above: Performed By: #### 2 [id number] #### [facility] [address] [place] [address] Potassium [Moles/Vol] 4.5 mmol/L Normal 3.5-5.3 [facility] Comment on above: Performed By: #### 2 [id number] #### [facility] [address] [place] [address] Protein [Mass/Vol] 7.2 g/dL Normal 6.0-7.8 [facility] Comment on above: Performed By: #### 2 [id number] #### [facility] [address] [place] [address] Sodium [Moles/Vol] 137 mmol/L Normal 135-145 [facility] Comment on above: Performed By: #### 2 [id number] #### [facility] [address] [place] [address] Urea nitrogen [Mass/Vol] 15 mg/dL Normal 5-21 [facility] Comment on above: Performed By: #### 2 [id number] #### [facility] [address] [place] [address] Urea nitrogen/Creatinine [Mass ratio] 19 No Units Normal 10-20 [facility] Comment on above: Performed By: #### 2 [id number] #### [facility] [address] [place] [address] [id number] 01-10-2025 HbA1c (Bld) [Mass fraction] 4.9 % Normal <=5.9 [facility] Comment on above: Performed By: #### 7 [id number] #### [facility] [address] [place] [address] Lipid Panelon 01-10-2025 Cholesterol [Mass/Vol] 187 mg/dL Normal 120-200 [facility] Comment on above: Performed By: #### 2 [id number] #### [facility] [address] [place] [address] Cholesterol in HDL [Mass/Vol] 62 mg/dL Invalid Interpretation Code [facility] Comment on above: Result Comment: '>= 60 LOW RISK' '<= 40 HIGH RISK' Performed By: #### 2 [id number] #### [facility] [address] [place] [address] Cholesterol in LDL [Mass/Vol] 138 mg/dL High <=129 [facility] Comment on above: Performed By: #### 2 [id number] #### [facility] [address] [place] [address] Cholesterol in VLDL [Mass/Vol] 16 mg/dL Normal 7-40 [facility] Comment on above: Performed By: #### 2 [id number] #### [facility] [address] [place] [address] Triglyceride [Mass/Vol] 79 mg/dL Normal <=149 [facility] Comment on above: Performed By: #### 2 [id number] #### [facility] [address] [place] [address] T4 & TSHon 01-10-2025 TSH Qn 1.04 m[IU]/L Normal 0.34-5.60 [facility] Comment on above: Performed By: #### 1 [id number] #### [facility] [address] [place] [address] T4 [Mass/Vol] 8.1 microgram/dL Normal 4.6-9.1 [facility] Comment on above: Performed By: #### 1 [id number] #### [facility] [address] [place] [address] Vit B12on 01-10-2025 Cobalamin (Vitamin B12) [Mass/Vol] 162 pg/mL Normal 50-1500 [facility] Comment on above: Performed By: #### 2 [id number] #### [facility] [address] [place] [address] Vitamin D 25 Hydroxyon 01-10 25-hydroxyvitamin D3 [Mass/Vol] 11.4 ng/mL Low 30.0-100.0 [facility] Comment on above: Performed By: #### 5 [id number] #### [facility] [address] [place] [address] eGFRon 01-10-2025 eGFR 101 mL/min/1.73 m2 Normal >=59 [facility] Comment on above: Performed By: #### 1 [id number] #### [facility] [address] [place] [address] ALL CBC WITH AUTO DIFFon BASOPHILS ABSOLUTE AUTO 0.1 [facility] Basophils/100 WBC (Bld) 1.2 % 0.2 - 2.0 % [facility] Eosinophils/100 WBC (Bld) 1.8 % 0.9 - 7.0 % [facility] Erythrocyte distribution width (RBC) [Ratio] 11.8 % 11.0 - 15.0 % [facility] Hematocrit (Bld) [Volume fraction] 42.2 % 36.0 - 48.0 % [facility] Hemoglobin (Bld) [Mass/Vol] 14.1 g/dL 12.0 - 16.0 g/dL [facility] IMMATURE GRANULOCYTES ABS AUTO 0.01 [facility] Immature granulocytes/100 WBC (Bld) 0.2 % 0.0 - 0.5 % [facility] Interpretation and review of laboratory results Abnormal [facility] LYMPHOCYTES ABSOLUTE AUTO 1.7 [facility] Lymphocytes/100 WBC (Bld) 27.8 % 20.5 - 60.0 % [facility] MCH (RBC) [Entitic mass] 29.9 pg 26.7 - 34.0 pg [facility] MCHC (RBC) [Mass/Vol] 33.4 g/dL 29.9 - 35.2 g/dL [facility] MCV (RBC) [Entitic vol] 89.6 fL 81.0 - 99.0 fL [facility] MONOCYTES ABSOLUTE AUTO 0.4 [facility] Monocytes/100 WBC (Bld) 6.4 % 1.7 - 12.0 % [facility] NEUTROPHILS ABSOLUTE AUTO 3.8 [facility] Neutrophils/100 WBC (Bld) 62.6 % 43.0 - 75.0 % [facility] Platelet mean volume (Bld) [Entitic vol] 9.2 fL Low 9.5 - 13.5 fL [facility] EO # 0.1 [facility] PLT 334 [facility] RBC 4.71 [facility] TB WBC 6.1 [facility] XR CHEST 2Von 11-12-[address] [address] XRay Report Signed Patient: SUSAN BRO MR#: [id number] : 1995 Acct:[id number] Age/Sex: 29 / F ADM Date: 11/12/24 Loc: [facility] Attending Dr: Rashaun Amador D.O. Ordering Physician: Rashaun Amador D.O. Date of Service: 11/12/24 Procedure(s): XR chest 2V Accession Number(s): [id number] cc: Rashaun Amador D.O.; Physician,Non-Staff Daniel The [address] [id number] Patient Name: SUSAN BRO MRN: [facility]:[id number] date: 1995 Sex: F Assigned Patient Location: [facility] Current Patient Location: [facility] Accession/Order Number: [id number] Exam Date: 11/12/2024 11:20 Report Date: 11/12/2024 [...] M.D. Signed By: 11/12/242114 DD/ 12 TD/TT: Accounts Payable Administrator: [facility] Radiology, Radiologi MD kyra - 11/13/[address] [address] XRay Report Signed Patient: SUSAN BRO MR#: [id number] : 1995 Acct:[id number] Age/Sex: 29 / F ADM Date: 11/12/24 Loc: [facility] Attending Dr: Rashaun Amador D.O. Ordering Physician: Rashaun Amador D.O. Date of Service: 11/12/24 Procedure(s): XR chest 2V Accession Number(s): [id number] cc: Rashaun Amador D.O.; Physician,Non-Staff MObdulia The [address] [address] Patient Name: SUSAN BRO MRN: [facility]:[id number] date: 1995 Sex: F Assigned Patient Location: [facility] Current Patient Location: [facility] Accession/Order Number: [id number] Exam Date: 11/12/2024 11:20 Report Date: 11/12/2024 [...] M.D. Signed By: 11/12/242114 DD/ 12 TD/TT: Accounts Payable Administrator: [facility] Radiology Study observation (narrative) [facility] [employer] XR CHEST 2VOrdered By: Radio [facility] Radiology on 11-12-2024 [facility] [employer] Work Phone: Elvis 11-06-2024 L ----- Specimen: [id number] Received: 11/08/24 Status: DARBY Ernst Num: [id number] Spec Type: Surgical Subm Dr: Rashaun Amador Tissues: A Endometrium - Biopsy (ENDOMETRIAL BX) Procedures: HE/2, Gross/Micro L4 Age/ Patient Sex Location Account Attending Physician Susan Bro / LABELL [id number] Rashaun Amador SPEC NUM: [id number] RECD: 11/08/24 STATUS: DARBY ERNST NUM: [id number] MARIA ANTONIA: 11/06/240000 SUBM DR: Rashaun Amador ENTERED: 11/08/[address]: RUT TYPE: Surgical DEPT: S ENTERED BY: [id number] RECV BY: [id number] ORDERED: HE/2, Gross/Micro L4 ORDERED: HE/2, Gross/Micro [...] submitted in a single cassette. (1, ns, [id number] A) J Microscopic Description Microscopic examinations are performed supporting the above interpretation Specimen: [id number] Received: 11/08/24 Status: DARBY Ernst Num: [id number] Spec Type: Surgical Subm Dr: Rashaun Amador Tissues: A Endometrium - Biopsy (ENDOMETRIAL BX) Procedures: HE/2, Gross/Micro L4 Patient: Susan Bro [id number] (Continued) Specimen: [id number] Received: 11/08/24 (Continued) Signed (signature on file)____Rickie Alejandra Gonzalez MD 11/11/24 1313 Specimen: [id number] Received: 11/08/24 Status: DARBY Ernst Num: [id number] Spec Type: Surgical Subm Dr: Rashaun Amador Tissues: A Endometrium - Biopsy (ENDOMETRIAL BX) Procedures: HE/Vidhi, Cortney/Junior L4 Patient: AdaliSusan [id number] (Continued) Specimen: [id number] Received: 11/08/24 (Continued) CPT Codes 62991 Specimen: [id number] Received: 11/08/24 Status: DARBY Ernst Num: [id number] Spec Type: Surgical Subm Dr: Rashaun Amador Tissues: A Endometrium - Biopsy (ENDOMETRIAL BX) Procedures: HE/2, Gross/Junior L4 Patient: Susan Bro [id number] (Continued) Signed (signature on file) Cj-Dalton Gonzalez MD 11/11/24 1313 Normal [facility] ALL CBC WITH AUTO DIFFon BASOPHILS ABSOLUTE AUTO 0.1 [facility] Basophils/100 WBC (Bld) 1.4 % 0.2 - 2.0 % [facility] Eosinophils/100 WBC (Bld) 2.1 % 0.9 - 7.0 % [facility] Erythrocyte distribution width (RBC) [Ratio] 12.9 % 11.0 - 15.0 % [facility] Hematocrit (Bld) [Volume fraction] 40 % 36.0 - 48.0 % [facility] Hemoglobin (Bld) [Mass/Vol] 13.6 g/dL 12.0 - 16.0 g/dL [facility] IMMATURE GRANULOCYTES ABS AUTO 0.02 [facility] Immature granulocytes/100 WBC (Bld) 0.3 % 0.0 - 0.5 % [facility] Interpretation and review of laboratory results Abnormal [facility] LYMPHOCYTES ABSOLUTE AUTO 1.5 [facility] Lymphocytes/100 WBC (Bld) 23.1 % 20.5 - 60.0 % [facility] MCH (RBC) [Entitic mass] 30.4 pg 26.7 - 34.0 pg [facility] MCHC (RBC) [Mass/Vol] 34 g/dL 29.9 - 35.2 g/dL [facility] MCV (RBC) [Entitic vol] 89.5 fL 81.0 - 99.0 fL [facility] MONOCYTES ABSOLUTE AUTO 0.4 [facility] Monocytes/100 WBC (Bld) 6.7 % 1.7 - 12.0 % [facility] NEUTROPHILS ABSOLUTE AUTO 4.4 [facility] Neutrophils/100 WBC (Bld) 66.4 % 43.0 - 75.0 % [facility] Platelet mean volume (Bld) [Entitic vol] 9.3 fL Low 9.5 - 13.5 fL [facility] TBH EO # 0.1 [facility] PLT 291 [facility] TB RBC 4.47 [facility] WBC 6.6 [facility] Physician Orderon 03-12-2024 Physician Order [id number]#1.00TIFF Normal [facility] T4 & TSHon 03-12-2024 TSH Qn 4.44 m[IU]/L Normal 0.34-5.60 [facility] Comment on above: Performed By: #### 1 [id number] #### [facility] [address] [place] [address] T4 [Mass/Vol] 5.7 microgram/dL Normal 4.6-9.1 [facility] Comment on above: Performed By: #### 1 [id number] #### [facility] [address] [place] [address] Elvis 02-08-2024 L Specimen: [id number] Received: 02/11/24 Status: DARBY Ernst Num: [id number] Spec Type: Surgical Subm Dr: Rashaun Amador Tissues: A Fallopian Tube - Sterilization (FT BILATERAL) Procedures: HE/2, Gross/Micro L2 Age/ Patient Sex Location Account Attending Physician Susan Bro 28/F LABELL [id number] Rashaun Amador SPEC NUM: [id number] RECD: 02/11/24 STATUS: DARBY ERNST NUM: [id number] MARIA ANTONIA: 02/08/24-[address]: Rashaun Amador ENTERED: 02/11/24-1310 [facility] DR: Jessica,Lab SPEC TYPE: Surgical DEPT: CLAUDINE [...] intact lumen lined by unremarkable shannon mucosa. Chiller Operator sections are submitted in A1 (tube #1) and A2 (tube #2). Clinical history: Request for sterilization TW CPT Codes 13254 Specimen: [id number] Received: 02/11/24 Status: DARBY Ernst Num: [id number] Spec Type: Surgical Subm Dr: Rashaun Amador Tissues: A Fallopian Tube - Sterilization (FT BILATERAL) Procedures: HE/2, Gross/Micro L2 Patient: Susan Bro Rochelle [id number] (Continued) Signed (signature on file) Alejandra Gonzalez MD 02/12/241923 Normal [facility] ALL THYROID STIM HORMONEon 0 11-27-2023 TSH Qn 2.029 m[IU]/L [facility] Urinalysis macro (dipstick) panel (U)on 11-27-2023 Bilirubin, UA Negative Negative - 4(70) +++ mg/dL [facility] Blood, UA Negative Negative - 50 Tod/mcL [facility] Clarity, UA Clear [facility] Color, UA Yellow [facility] Glucose, UA Negative Negative - 1999(110) ++++ mg/dL [facility] Interpretation and review of laboratory results Abnormal [facility] Ketones, UA Positive Negative - 160(16) ++++ mg/dL [facility] Leukocytes, UA Positive Negative - 500+++ Rosemarie/mcL [facility] Nitrite, UA Negative Negative - Positive [facility] pH, UA 6.5 5 - 9 [facility] Protein, UA Trace Negative - 1999(20) ++++ mg/dL [facility] Spec Grav, UA 1.025 1 - 1.03 [facility] Urobilinogen, UA 1.0 0.2 - 12 mg/dL [facility] Urinalysis macro (dipstick) panel (U)on 11-20-2023 Bilirubin, UA Negative Negative - 4(70) +++ mg/dL [facility] Blood, UA Negative Negative - 50 Tod/mcL [facility] Clarity, UA Clear [facility] Color, UA Yellow [facility] Glucose, UA Negative Negative - 1999(110) ++++ mg/dL [facility] Interpretation and review of laboratory results Normal [facility] Ketones, UA Negative Negative - 160(16) ++++ mg/dL [facility] Leukocytes, UA Negative Negative - 500+++ Rosemarie/mcL [facility] Nitrite, UA Negative Negative - Positive [facility] pH, UA 7.0 5 - 9 [facility] Protein, UA Negative Negative - 1999(20) ++++ mg/dL [facility] Spec Grav, UA 1.025 1 - 1.03 [facility] Urobilinogen, UA 1.0 0.2 - 12 mg/dL [facility] C Urineon 11-06-2023 Bacteria identified Cx [facility] (U) Microbiology PROCEDURE: Urine Culture [R1] SOURCE: U CleanCatch BODY SITE: COLLECTED DATE/TIME: 11/04/2023 08:05 EST RECEIVED DATE/TIME: 11/04/2023 15:53 EST START DATE/TIME: 11/04/2023 15:53 EST FREE TEXT SOURCE: Rashaun AMADOR DO, DO, Corey R FINAL REPORTS Final Report [] Verified Date/Time: 11/06/2023 11:59 EST 3,000 cfu/ml Mixed skin contaminants Performing Locations R1: This test was performed at: [facility], [address] [place] [address], [address] , [place], [facility] Comment on above: Performed By: #### 2 893247, 35241856, 3298334, 5426854, 7976427, 5228218 #### [facility] [address] [place] [address] Nursing Assessmenton 024 Nursing Assessment [id number]#1.00TIFF Normal [facility] Consent for Treatmenton 10-16 Consent for Treatment [id number]#1.00TIFF Normal [facility] Discharge Instructionson Discharge Instructions [id number]#1.00TIFF Normal [facility] Inpatient Clinical Summaryon 11-04-2023 Inpatient Clinical Summary [address] [address] Clinical Summary Person Information Name: SUSAN BRO [facility] Age: 28 Years : 1995 Sex: Female PCP: MELINA MAHONEY Marital Status: Single Phone: [phone] Race: White Ethnicity: Non- or Language: Namibian Visit Id: Visit Reason: Speciality: Acuity: Obs Enc Type: OB Triage Med Service: Obstetrics Arrival: 11/04/2023 07:52:14 Discharge: 11/04/2023 09:55:00 Dispo Type: Home (Routine DC) Address: [address] [place] [id number] Provider Notes: Diagnosis: Problems Active (08/18/2023) Pre-employment [...] Follow up: With: Address: When: Rashaun AMADOR [facility], [address] [place] [address] , [place] [address] Business (1) In 2 days 11/06/2023 Comments: Call for any problems. Appointment has already been scheduled Call physician if symptoms worsen Please call if you need to reschedule Return for contractions closer, longer, harder Return for decreased movement Return if ruptured membranes or vaginal bleeding Patient Education Information: Normal [facility] Inpatient Patient Summaryon 11-04-2023 Inpatient Patient Summary [address] [address] Patient Discharge Instructions PERSON INFORMATION Name: RONEN BROELIAS Byrd Date of : 1995 Current Date: 11/04/2023 [...] Follow up: With: Address: When: Rashaun AMADOR [facility], [address] [place] [address] [place] [address] Business (1) In 2 days 11/06/2023 Comments: [...] to find a nearby participating provider. Comment: ADALI Campos VERONICA D, have received the attached [...] Leaflets: You may receive a survey from [employer] asking you to rate your care experience. [...] signed up for this yet, please contact [email or web address] at [phone] to get signed up today. KIRAN Award [...] QR code below. Thank you for choosing [facility] Normal [facility] Insurance Correspondence Off ice11-04-2023 Insurance Correspondence Office [id number]#1.00TIFF Normal [facility] UA With Cult Reflexon 2023 Bacteria LM Ql (Urine sed) TRACE Normal Trace [facility] Comment on above: Performed By: #### 2 026677, 63462415, 3528055, 4256036, 7842698, 0375053 #### [facility] [address] [place] [address] Bilirubin Ql (U) Negative Normal Negative [facility] Comment on above: Performed By: #### 2 436986, 30419371, 9554023, 6142059, 3755368, 7856484 #### [facility] [address] [place] [address] Clarity (U) SL CLOUDY Invalid Interpretation Code [facility] Comment on above: Performed By: #### 2 010145, 87905721, 4849020, 7147315, 3382500, 4736888 #### [facility] [address] [place] [address] Color (U) YELLOW Normal Yellow [facility] Comment on above: Performed By: #### 2 916614, 59438503, 1123680, 7192615, 6574365, 5618411 #### [facility] [address] [place] [address] Epithelial cells.squamous LM.HPF (Urine sed) [#/Area] 5-8 Normal 0-2 [facility] Comment on above: Performed By: #### 2 769707, 29389625, 0500421, 9345562, 8417302, 4288800 #### [facility] [address] [place] [address] Glucose Test strip (U) [Mass/Vol] Negative Normal Negative [facility] Comment on above: Performed By: #### 2 947559, 70407813, 4537916, 6292360, 0199809, 3211733 #### [facility] [address] [place] [address] Hemoglobin Ql (U) Negative Normal Negative [facility] Comment on above: Performed By: #### 2 563865, 02622993, 9424914, 3490424, 2758985, 8116821 #### [facility] [address] [place] [address] Ketones (U) [Mass/Vol] Negative Normal Negative [facility] Comment on above: Performed By: #### 2 726011, 66801519, 0409202, 3220612, 1365150, 0302429 #### [facility] [address] [place] [address] [place].plasma/[place] .RBC (Bld) [Mass ratio] 0-3 Normal 0-3 [facility] Comment on above: Performed By: #### 2 932746, 82758882, 0118699, 6588135, 8615833, 8929981 #### [facility] [address] [place] [address] Mucus Ql (Urine sed) TRACE Normal [facility] Comment on above: Performed By: #### 2 484548, 50090177, 3400370, 9570499, 8183464, 4595178 #### [facility] [address] [place] [address] Nitrite Ql (U) Negative Normal Negative [facility] Comment on above: Performed By: #### 2 497643, 22425060, 3934883, 1483776, 0559200, 1910715 #### [facility] [address] [place], [place] [address] pH (U) 7.0 [pH] Invalid Interpretation Code 5.0-9.0 [facility] Comment on above: Performed By: #### 2 001667, 49078775, 2205512, 4319845, 4225856, 9453649 #### [facility] [address] [place] [address] Protein (U) [Mass/Vol] Negative Normal Negative [facility] Comment on above: Performed By: #### 2 693949, 95690539, 8082463, 0735167, 6210714, 0981174 #### [facility] [address] [place] [address] Specific gravity (U) [Rel density] 1.015 Invalid Interpretation Code 1.005-1.030 [facility] Comment on above: Performed By: #### 2 222015, 58901347, 8580445, 2623967, 7811005, 4579823 #### [facility] [address] [place] [address] Type of Urine collection method Clean Catch Normal [facility] Comment on above: Performed By: #### 2 717498, 59150707, 7977432, 7940208, 0848097, 0589445 #### [facility] [address] [place] [address] Urobilinogen Qn (U) 0.2 {Rola'U}/dL Normal 0.0-1.0 [facility] Comment on above: Performed By: #### 2 551469, 77989945, 7479207, 2091520, 8829727, 3214440 #### [facility] [address] [place] [address] WBC Auto Ql (U) 1+ Abnormal Negative [facility] Comment on above: Performed By: #### 2 889479, 39830603, 5620629, 1669636, 0051947, 0961360 #### [facility] [address] [place] [address] WBC LM.HPF (Urine sed) [#/Area] 6-15 Abnormal 0-5 [facility] Comment on above: Performed By: #### 2 357146, 35785711, 2534176, 8256513, 3477541, 8387709 #### [facility] [address] [place] [address] URINALYSISOrdered By: An Mccarty on 11-04-2023 Bacteria [...] Normal Negative [facility] UA Auto SS [place].plasma/[place] .RBC (Bld) [Mass ratio] 0-3 /HPF Normal [...] FT UA Auto SS Urobilinogen Qn (U) 0.1688720 {Rola'U}/dL Normal 0.0 - 1.0 EU/dL FT UA Auto SS WBC Auto Ql (U) 1+ *ABN* (11/04/23 8:05 AM) Invalid Interpretation Code Negative [facility] UA Auto SS WBC LM.HPF (Urine sed) [#/Area] 6-15 /HPF Invalid Interpretation Code 0-5/HPF FT UA Auto SS T3 Totalon 08-24-2023 T3 [Mass/Vol] 146 ng/dL Invalid Interpretation Code 71-180 [facility] Comment on above: Result Comment: Perf ormed at: [facility] [address] [place], [place] [id number] PhD [place] Performed By: #### 2 697821, 44183280, 4406872, 6207530, 9501441, 4804604 #### [facility] [address] [place] [address] Auto Diffon 08-23-2023 Basophils/100 WBC (Bld) 0.9 % Normal 0.0-2.0 [facility] Comment on above: Order Comment: Order Added by Discern Expert. Performed By: #### 2 943254, 72554952, 0114800, 0166990, 8264279, 2907590 #### [facility] [address] [place] [address] Basophils/Leukocytes Auto (Bld) [Pure # fraction] 0.1 E9/L Normal 0.0-0.2 [facility] Comment on above: Order Comment: Order Added by Discern Expert. Performed By: #### 2 703231, 80453190, 0258045, 0811247, 7332273, 8962295 #### [facility] [address] [place] [address] Eosinophils/100 WBC (Bld) 1.3 % Normal 0.0-8.0 [facility] Comment on above: Order Comment: Order Added by Gisselle Expert. Performed By: #### 2 800154, 15743880, 8653117, 6134229, 1735405, 5539166 #### [facility] [address] [place] [address] Eosinophils/Leukocytes Auto (Bld) [Pure # fraction] 0.1 E9/L Normal 0.0-0.5 [facility] Comment on above: Order Comment: Order Added by Discern Expert. Performed By: #### 2 766343, 54123192, 9978018, 1263115, 1041055, 5388761 #### [facility] [address] [place] [address] Lymphocytes/100 WBC (Bld) 17.7 % Normal 14.0-50.0 [facility] Comment on above: Order Comment: Order Added by Discern Expert. Performed By: #### 2 372044, 13647750, 2967213, 7154322, 3561486, 9971460 #### [facility] [address] [place] [address] Lymphocytes/Leukocytes Auto (Bld) [Pure # fraction] 1.4 E9/L Normal 1.0-4.0 [facility] Comment on above: Order Comment: Order Added by Discern Expert. Performed By: #### 2 868795, 95539998, 7257566, 5855134, 3082374, 2992956 #### [facility] [address] [place] [address] Monocytes/100 WBC (Bld) 5.1 % Normal 4.0-14.0 [facility] Comment on above: Order Comment: Order Added by Discern Expert. Performed By: #### 2 496860, 16784569, 2150839, 9713776, 0163175, 6608518 #### [facility] [address] [place] [address] Monocytes/Leukocytes Auto (Bld) [Pure # fraction] 0.4 E9/L Normal 0.2-1.0 [facility] Comment on above: Order Comment: Order Added by Discern Expert. Performed By: #### 2 316609, 83147993, 8197341, 2631270, 4688220, 5649299 #### [facility] [address] [place] [address] Neutrophils/100 WBC (Bld) 75.0 % Normal 36.0-75.0 [facility] Comment on above: Order Comment: Order Added by Discern Expert. Performed By: #### 2 800175, 13494281, 6821918, 1227906, 7421636, 8165309 #### [facility] [address] [place] [address] Neutrophils/Leukocytes Auto (Bld) [Pure # fraction] 5.8 E9/L Normal 2.0-7.5 [facility] Comment on above: Order Comment: Order Added by Discern Expert. Performed By: #### 2 913181, 87532430, 1061252, 6427911, 4287894, 4218445 #### [facility] [address] [place] [address] CBC w/ Auto Diffon 3 Erythrocyte distribution width (RBC) [Ratio] 14.5 % High 10.9-14.2 [facility] Comment on above: Performed By: #### 2 737896, 39130841, 0009872, 9951403, 0634621, 6006089 #### [facility] [address] [place] [address] Hematocrit (Bld) [Volume fraction] 36.4 % Normal 34.0-46.0 [facility] Comment on above: Performed By: #### 2 082115, 97225690, 3887484, 8351371, 1771906, 3771430 #### [facility] [address] [place], [place] [address] Hemoglobin (Bld) [Mass/Vol] 12.1 g/dL Normal 12.0-16.0 [facility] Comment on above: Performed By: #### 2 479726, 78397789, 9877883, 5211782, 0025518, 1590698 #### [facility] [address] [place] [address] MCH (RBC) [Entitic mass] 30.2 pg Normal 27.0-34.0 [facility] Comment on above: Performed By: #### 2 666437, 78888554, 2066163, 3227584, 1309038, 7640874 #### [facility] [address] [place] [address] MCHC (RBC) [Mass/Vol] 33.3 g/dL Normal 31.4-36.0 [facility] Comment on above: Performed By: #### 2 803204, 50772207, 1548057, 9654403, 0383018, 3486440 #### [facility] [address] [place] [address] MCV (RBC) [Entitic vol] 90.8 fL Normal 80.0-100.0 [facility] Comment on above: Performed By: #### 2 097811, 53303642, 2342195, 7275546, 9956503, 1615432 #### [facility] [address] [place] [address] Platelet mean volume (Bld) [Entitic vol] 9.7 fL Normal 6.4-10.8 [facility] Comment on above: Performed By: #### 2 759308, 67441697, 6238285, 7792405, 6718649, 0529077 #### [facility] [address] [place] [address] Platelets (Bld) [#/Vol] 270.0 E9/L Normal 150.0-500.0 [facility] Comment on above: Performed By: #### 2 732380, 38682687, 3277536, 3237835, 4309962, 8814616 #### [facility] [address] [place] [address] RBC (Bld) [#/Vol] 4.0 E12/L Low 4.3-5.9 [facility] Comment on above: Performed By: #### 2 267356, 42479701, 9685726, 8546734, 1651789, 6655878 #### [facility] [address] [place] [address] WBC corrected for nucl RBC Auto (Bld) [#/Vol] 7.7 E9/L Normal 4.0-11.0 [facility] Comment on above: Performed By: #### 2 152445, 46359660, 5829424, 8309845, 1295992, 9295332 #### [facility] [address] [place] [address] CHEMISTRYOrdered By: SYSTEM SYSTEM on 08-23-2023 Albumin [...] m2 Normal >=59mL/min/ 1.73 m2 [facility] Comment on above: Interpretive Data: [...] Albumin [Mass/Vol] 2.8 g/dL Low 3.3-5.0 [facility] Comment on above: Performed By: #### 2 631164, 03251510, 6508125, 1579840, 8407415, 6927514 #### [facility] [address] [place] [address] Albumin/Globulin (S) [Mass conc ratio] 0.7 Low 1.1-2.2 [facility] Comment on above: Performed By: #### 2 491747, 06390196, 4174851, 4942441, 2007707, 1939472 #### [facility] [address] [place] [address] ALP [Catalytic activity/Vol] 49 Int._Unit/L Normal 21-98 [facility] Comment on above: Performed By: #### 2 033691, 39118477, 9528408, 1169300, 7399488, 0937039 #### [facility] [address] [place] [address] ALT No additional P-5'-P [Catalytic activity/Vol] 15 Int._Unit/L Normal 6-46 [facility] Comment on above: Performed By: #### 2 770546, 74297932, 5319548, 2003096, 9693427, 8410941 #### [facility] [address] [place] [address] Anion gap [Moles/Vol] 12 mmol/L Normal 6-16 [facility] Comment on above: Performed By: #### 2 106436, 33670768, 4944500, 6242126, 6015938, 8267411 #### [facility] [address] [place] [address] AST [Catalytic activity/Vol] 17 Int._Unit/L Normal 5-43 [facility] Comment on above: Performed By: #### 2 115605, 34521791, 1315589, 1310817, 2871764, 2380560 #### [facility] [address] [place] [address] Bilirubin [Mass/Vol] 0.5 mg/dL Normal 0.0-1.1 [facility] Comment on above: Performed By: #### 2 692158, 44111914, 4065892, 6672264, 4488834, 1580102 #### [facility] [address] [place] [address] Calcium [Mass/Vol] 8.8 mg/dL Low 8.9-11.1 [facility] Comment on above: Performed By: #### 2 719756, 02480457, 5289893, 1200263, 6593794, 5636547 #### [facility] [address] [place] [address] Chloride [Moles/Vol] 108 mmol/L Normal 101-111 [facility] Comment on above: Performed By: #### 2 298760, 22512292, 2388836, 7045637, 8724546, 6599397 #### [facility] [address] [place] [address] CO2 [Moles/Vol] 22 mmol/L Normal 21-31 [facility] Comment on above: Performed By: #### 2 062290, 77773387, 1145805, 0084766, 4144575, 4571204 #### [facility] [address] [place] [address] Creatinine [Mass/Vol] 0.6 mg/dL Normal 0.5-1.3 [facility] Comment on above: Performed By: #### 2 935009, 17363899, 7264061, 1481469, 8428497, 5135629 #### [facility] [address] [place] [address] Globulin (S) [Mass/Vol] 3.8 g/dL Normal 1.4-4.0 [facility] Comment on above: Performed By: #### 2 109367, 69556082, 1782843, 5840276, 2815807, 1045219 #### [facility] [address] [place] [address] Glucose [Mass/Vol] 88 mg/dL Normal 55-199 [facility] Comment on above: Result Comment: If t his glucose result represents a fasting glucose, interpretation should refer to the following reference range: 55-99 mg/dL Performed By: #### 2 172749, 69231063, 8440764, 8905772, 9818830, 8659044 #### [facility] [address] [place] [address] Potassium [Moles/Vol] 3.5 mmol/L Normal 3.5-5.3 [facility] Comment on above: Performed By: #### 2 358330, 02828334, 0555195, 7023641, 8976443, 8844265 #### [facility] [address] [place] [address] Protein [Mass/Vol] 6.6 g/dL Normal 6.0-7.8 [facility] Comment on above: Performed By: #### 2 765351, 75645472, 4206545, 7544646, 9508923, 4162306 #### [facility] [address] [place] [address] Sodium [Moles/Vol] 138 mmol/L Normal 135-145 [facility] Comment on above: Performed By: #### 2 632698, 08825235, 0231174, 1010093, 8788918, [id number] #### [facility] [address] [place] [address] Urea nitrogen [Mass/Vol] 7 mg/dL Normal 5-21 [facility] Comment on above: Performed By: #### 2 863894, 73755211, 9277172, 5919299, 3893856, 9503209 #### [facility] [address] [place] [address] Urea nitrogen/Creatinine [Mass ratio] 12 No Units Normal 10-20 [facility] Comment on above: Performed By: #### 2 788153, 66608706, 5089402, 0230017, 4637363, 5782537 #### [facility] [address] [place] [address] HEMATOLOGYOrdered By: SYSTEM SYSTEM on 08-23-2023 Basophils/100 [...] 7.7 E9/L Normal 4.0 - 11.0 E9/L [facility] [place]eAutoSS Lipid Panelon 08-23-2023 Cholesterol [Mass/Vol] 238 mg/dL High 120-200 [facility] Comment on above: Performed By: #### 2 746748, 92757985, 8132085, 5084857, 5823029, 4799145 #### [facility] [address] [place] [address] Cholesterol in HDL [Mass/Vol] 64 mg/dL Invalid Interpretation Code [facility] Comment on above: Result Comment: HDL > or equal to 60 mg/dL: Low cardiovascular risk HDL < 40 mg/dL : High cardiovascular risk Performed By: #### 2 734755, 85354976, 8785927, 9525328, 1307877, 0437537 #### [facility] [address] [place] [address] Cholesterol in LDL [Mass/Vol] 146 mg/dL High <=129 [facility] Comment on above: Performed By: #### 2 679443, 73802259, 5431861, 7072270, 5651984, 9386401 #### [facility] [address] [place] [address] Cholesterol in VLDL [Mass/Vol] 33 mg/dL Normal 7-40 [facility] Comment on above: Performed By: #### 2 203693, 56822998, 3598147, 6638808, 3401509, 8989775 #### [facility] [address] [place] [address] Triglyceride [Mass/Vol] 164 mg/dL High <=149 [facility] Comment on above: Performed By: #### 2 132490, 45482710, 1211643, 9683850, 9698607, 0943916 #### [facility] [address] [place] [address] Physician Orderon 08-23-2023 Physician Order [id number]#1.00TIFF Normal [facility] T4 & TSHon 08-23-2023 T4 [Mass/Vol] 11.8 microgram/dL High 4.6-9.1 [facility] Comment on above: Performed By: #### 2 132766, 27421489, 3159307, 5601528, 4071110, 9524967 #### [facility] [address] [place] [address] TSH Qn 3.61 m[IU]/L Normal 0.34-5.60 [facility] Comment on above: Performed By: #### 2 967231, 24365686, 5231111, 6301401, 8898810, 6053954 #### [facility] [address] [place] [address] eGFRon 08-23-2023 GFR/1.73 sq M.predicted among non-blacks MDRD (S/P/Bld) [Vol rate/Area] 125 mL/min/1.73 m2 Normal >=59 [facility] Comment on above: Order Comment: Order Added by Discern Expert. Result Comment: [employer] lucy kidney disease could be indicated at eGFR's of less than 60 mL/min/1.73m2. Kidney failure is indicated at less than 15 mL/min/1.73m2. Performed By: #### 2 670185, 51115257, 0786949, 3748259, 2209131, 4245383 #### [facility] [address] [place] [address] Nursing Assessmenton 023 Nursing Assessment [id number]#1.00TIFF Normal [facility] Consent for Treatmenton Consent for Treatment [id number]#1.00TIFF Normal [facility] Discharge Instructionson Discharge Instructions [id number]#1.00TIFF Normal [facility] Inpatient Clinical Summaryon 08-18-2023 Inpatient Clinical Summary [address] [address] Clinical Summary Person Information Name: SUSAN BRO Sloane/[facility] Age: 27 Years : 1995 Sex: Female PCP: NONE, XXXX Marital Status: Single Phone: [phone] Race: White Ethnicity: Non- or Language: Namibian Visit Id: Visit Reason: Speciality: Acuity: Enc Type: OB Triage Med Service: Obstetrics Arrival: 08/18/2023 07:19:19 Discharge: 08/18/2023 08:15:00 Dispo Type: Home (Routine DC) Address: [address] [place] [phone] Provider Notes: Diagnosis: Problems Active (08/18/2023) Pre-employment [...] Patient Education Information: Second Trimester of , Iotc-ll-Ceyc Normal [facility] Inpatient Patient Summaryon 08-18-2023 Inpatient Patient Summary [place] [id number] Patient Discharge Instructions PERSON INFORMATION Name: SUSAN [...] to find a nearby participating provider. Comment: ADALI Campos VERONICA D, have received the attached [...] these instructions at home: Medicines ? Take nulq-ndx-hlfnnal and prescription medicines only as told by [...] your leg (more content not included)... Normal [facility] Insurance Correspondenceon 1 10-18-2022 Insurance Correspondence [id number]#1.00TIFF Normal [facility] Vaccinationson 08-18-2023 Vaccinations [id number]#1.00TIFF Normal [facility] C Urineon 07-27-2023 Bacteria identified [...] Locations R1: This test was performed at: [facility], [address] [place] [address], [address]- , , [facility] Comment on above: Performed By: #### 2 477101, [id number] #### [facility] [address] [place] [address] ABO/Rhon 07-25-2023 ABO/Rh Positive Invalid Interpretation Code [facility] Comment on above: Performed By: #### 2 538955 ####[facility] [address] [place] [address] Auto Diffon 07-25-2023 Basophils/100 WBC (Bld) 1.1 % Normal 0.0-2.0 [facility] Comment on above: Order Comment: Order Added by Discern Expert. Performed By: #### 2 590607, 64087010, 3515196, 0561608, 5074443, 3089774 #### [facility] [address] [place] [address] Basophils/Leukocytes Auto (Bld) [Pure # fraction] 0.1 E9/L Normal 0.0-0.2 [facility] Comment on above: Order Comment: Order Added by Discern Expert. Performed By: #### 2 027631, 62115611, 4001697, 4327022, 5198978, 0966680 #### [facility] [address] [place] [address] Eosinophils/100 WBC (Bld) 1.2 % Normal 0.0-8.0 [facility] Comment on above: Order Comment: Order Added by Discern Expert. Performed By: #### 2 522767, 38566233, 7773207, 9051856, 4737365, 2282923 #### [facility] [address] [place] [address] Eosinophils/Leukocytes Auto (Bld) [Pure # fraction] 0.1 E9/L Normal 0.0-0.5 [facility] Comment on above: Order Comment: Order Added by Discern Expert. Performed By: #### 2 578559, 93521911, 4897942, 3467373, 7183548, 3977899 #### [facility] [address] [place] [address] Lymphocytes/100 WBC (Bld) 23.7 % Normal 14.0-50.0 [facility] Comment on above: Order Comment: Order Added by Discern Expert. Performed By: #### 2 302996, 86403611, 2218838, 2367318, 5590003, 9682453 #### [facility] [address] [place] [address] Lymphocytes/Leukocytes Auto (Bld) [Pure # fraction] 1.4 E9/L Normal 1.0-4.0 [facility] Comment on above: Order Comment: Order Added by Discern Expert. Performed By: #### 2 672682, 05746188, 9917873, 7186026, 6625473, 5955731 #### [facility] [address] [place] [address] Monocytes/100 WBC (Bld) 6.7 % Normal 4.0-14.0 [facility] Comment on above: Order Comment: Order Added by Discern Expert. Performed By: #### 2 635100, 22106823, 0514492, 9795997, 4786254, 4673313 #### [facility] [address] [place] [address] Monocytes/Leukocytes Auto (Bld) [Pure # fraction] 0.4 E9/L Normal 0.2-1.0 [facility] Comment on above: Order Comment: Order Added by Discern Expert. Performed By: #### 2 099078, 33741840, 1306311, 9098006, 0292161, 9598041 #### [facility] [address] [place] [address] Neutrophils/100 WBC (Bld) 67.3 % Normal 36.0-75.0 [facility] Comment on above: Order Comment: Order Added by Discern Expert. Performed By: #### 2 677195, 45941672, 8996289, 4811436, 9635052, 0983275 #### [facility] [address] [place] [address] Neutrophils/Leukocytes Auto (Bld) [Pure # fraction] 4.0 E9/L Normal 2.0-7.5 [facility] Comment on above: Order Comment: Order Added by Discern Expert. Performed By: #### 2 994692, 75133227, 9047258, 4015579, 1307117, 6616956 #### [facility] [address] [place] [address] BLOOD BANKOrdered By: An Lassiter on 07-25-2023 ABO/Rh Interp Positive Invalid Interpretation Code [facility] [place] Subsection BMPon 07-25-2023 Creatinine [Mass/Vol] 0.6 mg/dL Normal 0.5-1.3 [facility] Comment on above: Performed By: #### 2 067287, 56022518, 9949004, 3527585, 0770243, 7080370 #### [facility] [address] [place] [address] [place] [address] Urea nitrogen [Mass/Vol] 6 mg/dL Normal 5-21 [facility] Comment on above: Performed By: #### 2 239211, 41696574, 9948279, 3269587, 1974137, 1951606 #### [facility] [address] [place] [address] Urea nitrogen/Creatinine [Mass ratio] 10 No Units Normal 10-20 [facility] Comment on above: Performed By: #### 2 545851, 90532344, 1181970, 1885735, 1624645, 2283303 #### [facility] [address] [place] [address] Anion gap [Moles/Vol] 2 mmol/L Low 6-16 [facility] Comment on above: Performed By: #### 2 099981, 84166685, 0981405, 3558955, 4514448, 2905856 #### [facility] [address] [place] [address] Calcium [Mass/Vol] 8.6 mg/dL Low 8.9-11.1 [facility] Comment on above: Performed By: #### 2 353972, 40426112, 4248986, 7621515, 7265019, 8064523 #### [facility] [address] [place] [address] Chloride [Moles/Vol] 107 mmol/L Normal 101-111 [facility] Comment on above: Performed By: #### 2 787571, 11769750, 0506770, 1088442, 7672309, 9865542 #### [facility] [address] [place] [address] CO2 [Moles/Vol] 27 mmol/L Normal 21-31 [facility] Comment on above: Performed By: #### 2 836812, 46669975, 2848740, 8382654, 5533759, 2994668 #### [facility] [address] [place] [address] Glucose [Mass/Vol] 73 mg/dL Normal 55-199 [facility] Comment on above: Result Comment: If t his glucose result represents a fasting glucose, interpretation should refer to the following reference range: 55-99 mg/dL Performed By: #### 2 332509, 71503278, 6334873, 9045771, 4533202, 0859744 #### [facility] [address] [place] [address] Potassium [Moles/Vol] 3.9 mmol/L Normal 3.5-5.3 [facility] Comment on above: Performed By: #### 2 856158, 53488794, 7390482, 7522349, 5451592, 2517136 #### [facility] [address] [place] [address] Sodium [Moles/Vol] 132 mmol/L Low 135-145 [facility] Comment on above: Performed By: #### 2 603732, 18274592, 9592888, 3803699, 3005937, 4809089 #### [facility] [address] [place] [address] BhCG Quanton 07-25-2023 [place] [address] m[IU]/mL High 1-3 [facility] Comment on above: Result Comment: GEST ATIONAL AGE HCG RANGE (mIU/mL) NON- <1-3 0.2-1 WEEKS 5-50 1-2 WEEKS 50-500 2-3 WEEKS 100-5,000 3-4 WEEKS 500-10,000 4-5 WEEKS 1,000-50,000 5-6 WEEKS 10,000-100,000 6-8 WEEKS 15,000-200,000 8-12 WEEKS 10,000-100,000 Performed By: #### 2 987694 ####[facility] [address] [place] [address] CBC w/ Auto Diffon Erythrocyte distribution width (RBC) [Ratio] 14.0 % Normal 10.9-14.2 [facility] Comment on above: Performed By: #### 2 064238, 77313469, 2122348, 7369823, 8412712, 1670061 #### [facility] [address] [place] [address] Hematocrit (Bld) [Volume fraction] 37.1 % Normal 34.0-46.0 [facility] Comment on above: Performed By: #### 2 812135, 27209366, 4847064, 5303914, 5796757, 7888600 #### [facility] [address] [place], [place] [address] Hemoglobin (Bld) [Mass/Vol] 12.5 g/dL Normal 12.0-16.0 [facility] Comment on above: Performed By: #### 2 753500, 06994165, 5773971, 0243363, 5491440, 5011222 #### [facility] [address] [place] [address] MCH (RBC) [Entitic mass] 29.9 pg Normal 27.0-34.0 [facility] Comment on above: Performed By: #### 2 811466, 24217128, 5944162, 1339361, 6839836, 2489843 #### [facility] [address] [place] [address] MCHC (RBC) [Mass/Vol] 33.8 g/dL Normal 31.4-36.0 [facility] Comment on above: Performed By: #### 2 644491, 84806014, 9669400, 3913435, 6911006, 4705803 #### [facility] [address] [place] [address] MCV (RBC) [Entitic vol] 88.4 fL Normal 80.0-100.0 [facility] Comment on above: Performed By: #### 2 566495, 68607061, 1881462, 7716704, 9574295, 5187849 #### [facility] [address] [place] [address] Platelet mean volume (Bld) [Entitic vol] 7.9 fL Normal 6.4-10.8 [facility] Comment on above: Performed By: #### 2 636868, 35072903, 0627710, 4633490, 7108706, 2163342 #### [facility] [address] [place] [address] Platelets (Bld) [#/Vol] 261.0 E9/L Normal 150.0-500.0 [facility] Comment on above: Performed By: #### 2 886288, 27561772, 8061691, 6779362, 9513191, 4853638 #### [facility] [address] [place] [address] RBC (Bld) [#/Vol] 4.2 E12/L Low 4.3-5.9 [facility] Comment on above: Performed By: #### 2 141769, 42944184, 3360307, 1695494, 9242583, 7972252 #### [facility] [address] [place] [address] WBC corrected for nucl RBC Auto (Bld) [#/Vol] 5.9 E9/L Normal 4.0-11.0 [facility] Comment on above: Performed By: #### 2 070371, 43671383, 3642961, 8045769, 1097330, 4024466 #### [facility] [address] [place] [address] CHEMISTRYOrdered By: SYSTEM SYSTEM on 07-25-2023 Albumin [...] m2 Normal >=59mL/min/ 1.73 m2 [facility] S Comment on above: Interpretive Data: [...] reference range: 55-99 mg/[place] [address] m[IU]/mL High 1 - 3 mIU/mL [facility] [...] Consent for Treatmenton 07-15 Consent for Treatment [id number]#1.00TIFF Normal [facility] Discharge Instructionson Discharge Instructions [id number]#1.00TIFF Normal [facility] ED Clinical Summaryon 2022 ED Clinical Summary (Inserted Image. Maryann ble to display) [address] [address] ED Clinical Summary Person Information Name: SUSAN BRO [facility] Age: 27 Years : 1995 Sex: Female Language: Namibian PCP: Rashaun AMADOR DO Marital Status: Single Phone: [phone] Visit Id: Visit Reason: Abdominal pain - [...] Complete 07/25/2023 09:02:57 07/25/2023 09:02:57 07/25/2023 09:03:05 Complete 07/25/2023 09:07:09 07/25/2023 09:12:13 07/25/2023 09:43:55 Discharge Complete 07/25/2023 09:56:34 07/25/2023 10:02:43 07/25/2023 10:02:43 Transfer Complete 07/25/2023 10:02:43 07/25/2023 10:02:43 07/25/2023 10:02:43 ADDR[address]: [address] [facility] [id number] [facility] DOC NOTES: MEDICAL INFORMATION: Prescriptions Given: Medications [...] up: With: Address: When: [address] [place] [address], [place] [address] Business (1) In 3 days 07/28/2023 DIAGNOSIS: Abdominal cramping; Vaginal spotting Normal [facility] ED Note-Physicianon 07-25-20 ED Note-Physician Basic Information Time Seen: Prachi NICHOLS, Jorge Hope 07/25/2023 08:19 Chief Complaint Pt reports abd [...] complications with her previous , has a 87-iotzn-rna at home. Review of Systems Full 10 [...] and Complexity of Problems Differential Diagnosis: [] MDM Data External documents reviewed: [] My EKG [...] This was discussed with patient. Follow-up with COMMUNITY DEVELOPMENT OFFICER was discussed with patient. Return precautions to [...] Jung In 3 days 07/28/2023 EDT [address] [place] [address]- Business (1) Additional Instructions: Patient Education Abdominal Pain During Attestation Patient seen and evaluated by the physician care team assistant. Attending physician was present in the emergency department and supervised care. This visit was performed by both the physician and an APC. I performed all aspects of the MDM as documented. This report was transcribed using voice recognition software. Every effort was made to ensure accuracy, however, inadvertently computerized painter and paperhanger apprentice mistakes may be present. Appropriate healthcare PPE was used in evaluating this patient. The patient was placed in a mask. The healthcare provider was wearing mask, gloves, and utilizing proper hand hygiene. All equipment was properly cleansed Problem List/Past Medical History Ongoing Gallstone Pre-employment examination Smoker 16-APR-2014 (more content not included)... Normal [facility] Comment on above: Result Comment: [...] keep your urine pale yellow. ? Take pfyi-rhg-ojmsqpj and prescription medicines only as told by [...] Reviewed: 06/14/2021 Elsevier Patient Education ? 2022 [employer] Normal [facility] ED Patient Summaryon 023 ED Patient Summary (Inserted Image. Maryann ble to display) [address] [address] Patient Discharge Instructions Person Information Name: SUSAN BRO Age: 27 Years Arrival Date: 07/25/2023 08:12:57 Discharge Diagnosis: Abdominal cramping; Vaginal spotting Primary Care Physician: Rashaun AMADOR DO Provider Information Primary Provider: Kristian Guillermo DO Advanced Patient Transition Specialist:Jorge Velarde PA-C The exam and treatment you received in the Emergency Department were for an urgent problem and are not intended as complete care. It is important that you follow up with a doctor, nurse practitioner, or physician?s care team assistant for ongoing care. If your symptoms [...] Instructions: With: Address: When: [address] [place], [place] [phone] Business (1) In 3 days 07/28/2023 In the event that this physician does not participate in your insurance network, please consult with your insurance company to find a nearby participating provider. Patient Education Materials: Abdominal Pain During A MESSAGE TO ALL PATIENTS REGARDING OPIOIDS PRESCRIPTION OPIOIDS: WHAT YOU NEED TO KNOW Prescription opioids can be used to help relieve nicmhkpd-mx-sradbm pain and are often prescribed following a [...] be struggling with addiction, tell your health property caretaker and ask for guidance or call [facility] (more content not included)... Normal [facility] HEMATOLOGYOrdered By: SYSTEM SYSTEM on [...] [Mass or moles/Vol] UTC Abnormal 0.1-0.9 [facility] Comment on above: Result Comment: Resu lt verified by Discern Rule. Performed result UTC (Unable to Calculate) was sent as an Alpha code due the inability to calculate a valid numeric value. Performed By: #### 2 449017, 69730535, 6605608, 7610590, 8300091, 5664189 #### [facility] [address] [place] [address] Albumin [Mass/Vol] 3.1 g/dL Low 3.3-5.0 [facility] Comment on above: Performed By: #### 2 509168, 45414218, 8219423, 8117287, 4649659, 4248120 #### [facility] [address] [place] [address] Albumin/Globulin (S) [Mass conc ratio] 0.9 Low 1.1-2.2 [facility] Comment on above: Performed By: #### 2 251052, 51776326, 7256483, 9429957, 6200972, 0693759 #### [facility] [address] [place] [address] ALP [Catalytic activity/Vol] 35 Int._Unit/L Normal 21-98 [facility] Comment on above: Performed By: #### 2 339808, 63715087, 7981637, 2863446, 9839315, 6583439 #### [facility] [address] [place] [address] ALT No additional P-5'-P [Catalytic activity/Vol] 10 Int._Unit/L Normal 6-46 [facility] Comment on above: Performed By: #### 2 733314, 97348879, 5315699, 3142465, 5695867, 5828969 #### [facility] [address] [place] [address] AST [Catalytic activity/Vol] 18 Int._Unit/L Normal 5-43 [facility] Comment on above: Performed By: #### 2 796648, 63362394, 8089690, 9794892, 4753869, 7113035 #### [facility] [address] [place] [address] Bilirubin [Mass/Vol] 0.4 mg/dL Normal 0.0-1.1 [facility] Comment on above: Performed By: #### 2 688873, 65164461, 1089429, 1864708, 9365763, 5947599 #### [facility] [address] [place] [address] Globulin (S) [Mass/Vol] 3.6 g/dL Normal 1.4-4.0 [facility] Comment on above: Performed By: #### 2 634276, 35967297, 8409138, 5326548, 1023313, 5193485 #### [facility] [address] [place] [address] Protein [Mass/Vol] 6.7 g/dL Normal 6.0-7.8 [facility] Comment on above: Performed By: #### 2 712950, 02297402, 8192702, 3843085, 6259101, 4426444 #### [facility] [address] [place] [address] Bilirubin.direct [Mass/Vol] mg/dL Normal 0.1-0.4 [facility] Comment on above: Performed By: #### 2 632024, 60052798, 4550390, 3837941, 7347423, 1747445 #### [facility] [address] [place] [address] Lipase Levelon 07-25-2023 Lipase [Catalytic activity/Vol] 28 U/L Normal 13-58 [facility] Comment on above: Performed By: #### 2 991479, 13732083, 9819908, 6147865, 6255706, 0126769 #### [facility] [address] [place] [address] UA With Cult Reflexon 2022 Bacteria LM Ql (Urine sed) TRACE Normal Trace [facility] Comment on above: Performed By: #### 2 689099, 26769801 #### [facility] [address] [place] [address] Bilirubin Ql (U) Negative Normal Negative [facility] Comment on above: Performed By: #### 2 329438, 29538687 #### [facility] [address] [place] [address] Clarity (U) SL CLOUDY Abnormal Clear [facility] Comment on above: Performed By: #### 2 888496, 63892328 #### [facility] [address] [place] [address] Color (U) YELLOW Normal Yellow [facility] Comment on above: Performed By: #### 2 310635, 71174255 #### [facility] [address] [place] [address] Epithelial cells.squamous LM.HPF (Urine sed) [#/Area] 0-2 Normal 0-2 [facility] Comment on above: Performed By: #### 2 153246, 03371509 #### [facility] [address] [place] [address] Glucose Test strip (U) [Mass/Vol] Negative Normal Negative [facility] Comment on above: Performed By: #### 2 957243, 78389479 #### [facility] [address] [place] [address] Hemoglobin Ql (U) Negative Normal Negative [facility] Comment on above: Performed By: #### 2 897843, 96591356 #### [facility] [address] [place] [address] Ketones (U) [Mass/Vol] Negative Normal Negative [facility] Comment on above: Performed By: #### 2 999657, 27449413 #### [facility] [address] [place] [address] [place].plasma/[place] .RBC (Bld) [Mass ratio] 0-3 Normal 0-3 [facility] Comment on above: Performed By: #### 2 527698, 57204277 #### [facility] [address] [place] [address] Nitrite Ql (U) Negative Normal Negative [facility] Comment on above: Performed By: #### 2 047528, 53850015 #### [facility] [address] [place] [address] pH (U) 7.5 [pH] Invalid Interpretation Code 5.0-9.0 [facility] Comment on above: Performed By: #### 2 372442, 02285172 #### [facility] [address] [place] [address] Protein (U) [Mass/Vol] Negative Normal Negative [facility] Comment on above: Performed By: #### 2 263135, 55356954 #### [facility] [address] [place] [address] Specific gravity (U) [Rel density] 1.010 Invalid Interpretation Code 1.005-1.030 [facility] Comment on above: Performed By: #### 2 [id number], [id number] #### [facility] [address] [place] [address] Type of Urine collection method Clean Catch Normal [facility] Comment on above: Performed By: #### 2 573980, [id number] #### [facility] [address] [place] [address] Urobilinogen Qn (U) 1.0 {Rola'U}/dL Normal 0.0-1.0 [facility] Comment on above: Performed By: #### 2 581363, [id number] #### [facility] [address] [place] [address] WBC Auto Ql (U) 2+ Abnormal Negative [facility] Comment on above: Performed By: #### 2 330814, [id number] #### [facility] [address] [place] [address] WBC LM.HPF (Urine sed) [#/Area] 0-5 Normal 0-5 [facility] Comment on above: Performed By: #### 2 617641, [id number] #### [facility] [address] [place] [address] URINALYSISOrdered By: Emy Aiken on 07-25-2023 Bacteria [...] Normal Negative [facility] UA Auto SS [place].plasma/[place] .RBC (Bld) [Mass ratio] 0-3 /HPF Normal [...] Interpretation Code 1.005 - 1.030 [facility] [place] Auto SS UA Spec Desc Clean Catch (07/25/23 8:33 AM) Normal [facility] UA Auto SS Urobilinogen Qn (U) 1.9276091 {Rola'U}/dL Normal 0.0 - 1.0 EU/dL FT UA Auto SS WBC Auto Ql (U) 2+ *ABN* (07/25/23 8:33 AM) Invalid Interpretation Code Negative [facility] UA Auto SS WBC LM.HPF (Urine sed) [#/Area] 0-5 /HPF Normal 0-5/HPF [facility] UA Auto SS US Limitedon 07-25 US [...] REPORT Dictated: 07/25/2023 10:01 am Ladarius Davis MD. Signed (Electronic Signature): 07/25/2023 10:01 am Signed by: Ladarius Davis MD Transcribed by: RINKU Technologist: IRAM Technical Comments DARON 12/23/23 History 2 Para 1 Transabdominal Ultrasound Performed FHR (bpm) 147 Cervical Length (cm) 4.4 Normal [facility] eGFRon 07-25-2023 GFR/1.73 sq M.predicted among non-blacks MDRD (S/P/Bld) [Vol rate/Area] 125 mL/min/1.73 m2 Normal >=59 [facility] Comment on above: Order Comment: Order added by Discern Expert. Result Comment: [employer] lucy kidney disease could be indicated at eGFR's of less than 60 mL/min/1.73m2. Kidney failure is indicated at less than 15 mL/min/1.73m2. Performed By: #### 2 621837, [id number], 9747249, 2894904, 7354656, 2846304 #### [facility] [address] [place] [address] C Urineon 06-30-2023 Bacteria identified Cx Nom [...] Locations R1: This test was performed at: [facility], [address] [place] [address], [address]- , , Normal [facility] Comment on above: Performed By: #### 2 626350 ####[facility] [address] [place] [address] Family Medicine Office/Clini c Noteon 06-28-2023 Family [...] with voice recognition artificial intelligence software, specifically Gibberin, PinPay and or InsideMaps. Substitutions may have occurred due to the [...] is 14 weeks . She is switching [employer] therefore was not able to get in [...] day(s), # 6 tab(s), Refills(s) 0, Pharmacy: [facility], 163, cm, 06/28/23 10:39:00 EDT, Height/Length Dosing, 74.8, kg, 06/28/23 10:39:00 EDT, Weight Dosing Urine Culture Urnls Dip Stick Non-Auto w/o Micrscpy POC 72250 2. (Z34.90: Encounter for supervision of normal , unspecified, unspecified trimester) Same as above. 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 Normal [facility] Comment on above: Result Comment: [...] these instructions at home: Medicines ? Take inxu-icc-wjrwrzo and prescription medicines only as told by [...] provider. Document Revised: 05/13/2021 Document Reviewed: 05/13/2021 [employer] Patient Education ? 2022 [employer]. Obstetrics and Gynecology Urinary Tract Infection, Adult [...] You h (more content not included)... Normal [facility] ABO/Rhon 06-14-2023 ABO/Rh Positive Invalid Interpretation Code [facility] Comment on above: Performed By: #### 2 [id number] ####[facility] [address] [place] [address] Auto Diffon 06-14-2023 Basophils/100 WBC (Bld) 0.8 % Normal 0.0-2.0 [facility] Comment on above: Order Comment: Order Added by Discern Expert. Performed By: #### 2 505815, 90869184, 9305489, 0493227, 7825512, 4941206 #### [facility] [address] [place] [address] Basophils/Leukocytes Auto (Bld) [Pure # fraction] 0.0 E9/L Normal 0.0-0.2 [facility] Comment on above: Order Comment: Order Added by Discern Expert. Performed By: #### 2 962571, 64604891, 9077696, 9968153, 7865818, 9331151 #### [facility] [address] [place] [address] Eosinophils/100 WBC (Bld) 1.9 % Normal 0.0-8.0 [facility] Comment on above: Order Comment: Order Added by Discern Expert. Performed By: #### 2 939829, 48837866, 7533142, 2730435, 0016164, 5860427 #### [facility] [address] [place] [address] Eosinophils/Leukocytes Auto (Bld) [Pure # fraction] 0.1 E9/L Normal 0.0-0.5 [facility] Comment on above: Order Comment: Order Added by Discern Expert. Performed By: #### 2 313181, 96770514, 7640709, 1756866, 0622210, 9432082 #### [facility] [address] [place] [address] Lymphocytes/100 WBC (Bld) 24.5 % Normal 14.0-50.0 [facility] Comment on above: Order Comment: Order Added by Discern Expert. Performed By: #### 2 133482, 19818347, 0507258, 0516049, 6311056, 6840312 #### [facility] [address] [place] [address] Lymphocytes/Leukocytes Auto (Bld) [Pure # fraction] 1.3 E9/L Normal 1.0-4.0 [facility] Comment on above: Order Comment: Order Added by Discern Expert. Performed By: #### 2 458968, 27890682, 5179996, 4442198, 7800007, 1892427 #### [facility] [address] [place] [address] Monocytes/100 WBC (Bld) 7.8 % Normal 4.0-14.0 [facility] Comment on above: Order Comment: Order Added by Discern Expert. Performed By: #### 2 939094, 06427952, 9742621, 3166602, 3739901, 5696182 #### [facility] [address] [place] [address] Monocytes/Leukocytes Auto (Bld) [Pure # fraction] 0.4 E9/L Normal 0.2-1.0 [facility] Comment on above: Order Comment: Order Added by Discern Expert. Performed By: #### 2 265991, 76926252, 7562875, 9111028, 8026309, 3553699 #### [facility] [address] [place] [address] Neutrophils/100 WBC (Bld) 65.0 % Normal 36.0-75.0 [facility] Comment on above: Order Comment: Order Added by Discern Expert. Performed By: #### 2 431495, 86178397, 4573128, 3914433, 6613778, 8831599 #### [facility] [address] [place] [address] Neutrophils/Leukocytes Auto (Bld) [Pure # fraction] 3.5 E9/L Normal 2.0-7.5 [facility] Comment on above: Order Comment: Order Added by Discern Expert. Performed By: #### 2 854659, 31713087, 3603584, 8483246, 2839618, 7716031 #### [facility] [address] [place] [address] BLOOD BANKOrdered By: Keila Kumar on 06-14-2023 ABO/Rh Interp Positive Invalid Interpretation Code [facility] BB Subsection BMPon 06-14-2023 Creatinine [Mass/Vol] 0.5 mg/dL Normal 0.5-1.3 [facility] Comment on above: Performed By: #### 2 505425, 53483149, 2329912, 4849448, 3507627, 4538012 #### [facility] [address] [place] [address] Urea nitrogen [Mass/Vol] 6 mg/dL Normal 5-21 [facility] Comment on above: Performed By: #### 2 413859, 23924261, 4124039, 8663169, 8883328, 0193073 #### [facility] [address] [place] [address] Urea nitrogen/Creatinine [Mass ratio] 12 No Units Normal 10-20 [facility] Comment on above: Performed By: #### 2 518846, 26909468, 9922006, 2445263, 9083857, 4920316 #### [facility] [address] [place] [address] Anion gap [Moles/Vol] 10 mmol/L Normal 6-16 [facility] Comment on above: Performed By: #### 2 831782, 53398279, 0963494, 9981535, 3697716, 3979271 #### [facility] [address] [place] [address] Calcium [Mass/Vol] 8.7 mg/dL Low 8.9-11.1 [facility] Comment on above: Performed By: #### 2 546557, 68015474, 7141251, 3110658, 6886615, 5925833 #### [facility] [address] [place] [address] Chloride [Moles/Vol] 107 mmol/L Normal 101-111 Fish er [facility] Comment on above: Performed By: #### 2 008087, 98919097, 6357313, 3375675, 5321394, 6310648 #### [facility] [address] [place] [address] CO2 [Moles/Vol] 21 mmol/L Normal 21-31 [facility] Comment on above: Performed By: #### 2 724372, 95846693, 8578055, 7877215, 8160925, 8796205 #### [facility] [address] [place] [address] Glucose [Mass/Vol] 77 mg/dL Normal 55-199 [facility] Comment on above: Result Comment: If t his glucose result represents a fasting glucose, interpretation should refer to the following reference range: 55-99 mg/dL Performed By: #### 2 570899, 39641708, 0805101, 8229654, 0223749, 8873130 #### [facility] [address] [place] [address] Potassium [Moles/Vol] 3.8 mmol/L Normal 3.5-5.3 [facility] Comment on above: Performed By: #### 2 815931, 43313496, 4346553, 9964688, 5507188, 5241967 #### [facility] [address] [place] [address] Sodium [Moles/Vol] 134 mmol/L Low 135-145 [facility] Comment on above: Performed By: #### 2 195334, 69432839, 3556556, 8471352, 5856644, 2078478 #### [facility] [address] [place] [address] BhG Quanton 06-14-2023 HCG.beta subunit Qn 848939 m[IU]/mL High 1-3 [facility] Comment on above: Result Comment: GEST ATIONAL AGE HCG RANGE (mIU/mL) NON- <1-3 0.2-1 WEEKS 5-50 1-2 WEEKS 50-500 2-3 WEEKS 100-5,000 3-4 WEEKS 500-10,000 4-5 WEEKS 1,000-50,000 5-6 WEEKS 10,000-100,000 6-8 WEEKS 15,000-200,000 8-12 WEEKS 10,000-100,000 Performed By: #### 2 312319 ####[facility] [address] [place] [address] CBC w/ Auto Diffon Erythrocyte distribution width (RBC) [Ratio] 12.6 % Normal 10.9-14.2 [facility] Comment on above: Performed By: #### 2 261253, 87537314, 3735965, 7425613, 1270036, 3091343 #### [facility] [address] [place] [address] Hematocrit (Bld) [Volume fraction] 39.9 % Normal 34.0-46.0 [facility] Comment on above: Performed By: #### 2 088966, 19966869, 4803870, 8955738, 3779035, 9900328 #### [facility] [address] [place] [address] Hemoglobin (Bld) [Mass/Vol] 13.4 g/dL Normal 12.0-16.0 [facility] Comment on above: Performed By: #### 2 214967, 01485606, 8163906, 7833604, 2539976, 6451290 #### [facility] [address] [place] [address] MCH (RBC) [Entitic mass] 29.8 pg Normal 27.0-34.0 [facility] Comment on above: Performed By: #### 2 044381, 64949147, 0619714, 9954863, 4408175, 3739823 #### [facility] [address] [place] [address] MCHC (RBC) [Mass/Vol] 33.6 g/dL Normal 31.4-36.0 [facility] Comment on above: Performed By: #### 2 638296, 82263517, 6834016, 1631346, 4088830, 5451524 #### [facility] [address] [place] [address] MCV (RBC) [Entitic vol] 88.8 fL Normal 80.0-100.0 [facility] Comment on above: Performed By: #### 2 241137, 62355462, 7503542, 1723386, 5597138, 3920927 #### [facility] [address] [place] [address] Platelet mean volume (Bld) [Entitic vol] 8.4 fL Normal 6.4-10.8 [facility] Comment on above: Performed By: #### 2 053390, 16491064, 9285831, 2471535, 9023512, 0537217 #### [facility] [address] [place] [address] Platelets (Bld) [#/Vol] 225.0 E9/L Normal 150.0-500.0 [facility] Comment on above: Performed By: #### 2 980619, 50462519, 9815946, 1976055, 7484624, 2215882 #### [facility] [address] [place], [place] [address] RBC (Bld) [#/Vol] 4.5 E12/L Normal 4.3-5.9 [facility] Comment on above: Performed By: #### 2 497949, 90427929, 0174734, 3539417, 5683649, 6434341 #### [facility] [address] [place] [address] WBC corrected for nucl RBC Auto (Bld) [#/Vol] 5.4 E9/L Normal 4.0-11.0 [facility] Comment on above: Performed By: #### 2 061493, 90173969, 0252434, 2628468, 6820021, 3928295 #### [facility] [address] [place] [id number] CHEMISTRYOrdered By: SYSTEM SYSTEM on 06-14-2023 Albumin [...] 199 mg/dL [facility] Remisol HCG.beta subunit Qn 625203 m[IU]/mL High 1 - 3 mIU/mL [facility] [...] Consent for Treatmenton 05-17 Consent for Treatment [id number] Normal [facility] ED Clinical Summaryon 2022 ED Clinical Summary (Inserted Image. Maryann ble to display) [address] [address] ED Clinical Summary Person Information Name: SUSAN BRO Sloane/[facility] Age: 27 Years : 1995 Sex: Female Language: Namibian PCP: Luis Carlos Jung MD Marital Status: Single Phone: [phone] Visit Id: Visit Reason: Abdominal pain; 12 [...] 06/14/2023 10:35:40 06/14/2023 10:35:40 06/14/2023 10:35:40 ADDRESS: [address] [place] [id number] [facility] DOC NOTES: MEDICAL INFORMATION: Prescriptions Given: Medications [...] EDUCATION INFORMATION: Instructions: Follow up: DIAGNOSIS: Normal [facility] ED Note-Physicianon 06-14-20 ED Note-Physician [...] sent for ultrasound which is discussed with agricultural technician. There is an intrauterine measuring 12 [...] Patient seen and evaluated by the physician care team assistant. Attending physician was present in the emergency department and supervised care. This visit was performed by both the physician and an APC. I performed all aspects of the MDM as documented. This report was transcribed using voice recognition software. Every effort was made to ensure accuracy, however, inadvertently computerized painter and paperhanger apprentice mistakes may be present. 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 Normal [facility] Comment on above: Result Comment: Elec tronically Signed By: Jos Ugalde PA-C\.br\Date and Time Signed: 06/14/23 11:58 EDT\.br\Electronically Co-Signed By: Kristian Guillermo DO\.br\Date and Time Co-Signed: 06/14/23 17:02 EDT ED Patient Education Noteon 06-14-2023 ED Patient Education Note Normal [facility] ED Patient Summaryon 023 ED Patient Summary (Inserted Image. Maryann ble to display) [place] [address] Patient Discharge Instructions Person Information Name: RONEN BRONICA Rochelle Age: 27 Years Arrival Date: 06/14/2023 08:31:43 Discharge Diagnosis: Primary Care Physician: Luis Carlos Jung MD Provider Information Primary Provider: Kristian Guillermo DO Advanced Patient Transition Specialist:Jos Ugalde PA-C The exam and treatment you received in the Emergency Department were for an urgent problem and are not intended as complete care. It is important that you follow up with a doctor, nurse practitioner, or physician?s care team assistant for ongoing care. If your symptoms [...] opioids can be used to help relieve gtjnqumb-mm-vzxdbb pain and are often prescribed following a [...] be struggling with addiction, tell your health property caretaker and ask for guidance or call [facility]?S National Helpline at 0-711-590-FKEN. o Source: [place] Department of Health and Human Services/Center for Disease Control & Prevention [facility] Medications Given: Medication Dose Route No medicati (more content not included)... Normal [facility] HEMATOLOGYOrdered By: SYSTEM SYSTEM on [...] 65.0 % Normal 36.0 - 75.0 % [facility]eAuto[facility] Neutrophils/Leukocytes Auto (Bld) [Pure # fraction] 3.5 E9/L Normal 2.0 - 7.5 E9/L [facility] HemeAutoSS HEMATOLOGYOrdered By: Keila Kumar on 06-14-2023 Erythrocyte distribution width (RBC) [Ratio] 12.6 % Normal 10.9 - 14.2 % [facility] HemeAutoSS Hematocrit (Bld) [Volume fraction] 39.9 % Normal 34.0 - 46.0 % [facility] HemeAutoSS Hemoglobin (Bld) [Mass/Vol] 13.4 g/dL Normal 12.0 - 16.0 gm/dL [facility] HemeAutoSS MCH (RBC) [Entitic mass] 29.8 pg Normal 27.0 - 34.0 pg [facility] HemeAutoSS MCHC (RBC) [Mass/Vol] 33.6 g/dL Normal 31.4 - 36.0 gm/dL [facility] HemeAutoSS MCV (RBC) [Entitic vol] 88.8 fL Normal 80.0 - 100.0 fL [facility] HemeAutoSS Platelet mean volume (Bld) [Entitic vol] 8.4 fL Normal 6.4 - 10.8 fL [facility] Platelets (Bld) [#/Vol] 225.0 E9/L Normal 150.0 - 500.0 E9/L [facility] HemeAutoSS RBC (Bld) [#/Vol] 4.5 E12/L Normal 4.3 - 5.9 E12/L [facility] WBC corrected for nucl RBC Auto (Bld) [#/Vol] 5.4 E9/L Normal 4.0 - 11.0 E9/L [facility]eAuto[facility] Hep Func Panelon 06-14-2023 Bilirubin.indirect [Mass or moles/Vol] UTC Abnormal 0.1-0.9 [facility] Comment on above: Result Comment: Resu lt verified by Discern Rule. Performed result UTC (Unable to Calculate) was sent as an Alpha code due the inability to calculate a valid numeric value. Performed By: #### 2 398895, 78991849, 5308723, 9655238, 2810521, 2370108 #### [facility] [address] [place] [address] Albumin [Mass/Vol] 3.5 g/dL Normal 3.3-5.0 [facility] Comment on above: Performed By: #### 2 619047, 01893947, 3281586, 3022122, 6667782, 4448702 #### [facility] [address] [place] [address] Albumin/Globulin (S) [Mass conc ratio] 1.1 Normal 1.1-2.2 [facility] Comment on above: Performed By: #### 2 709242, 23128754, 6064639, 4273673, 3253987, 6014684 #### [facility] [address] [place] [address] ALP [Catalytic activity/Vol] 34 Int._Unit/L Normal 21-98 [facility] Comment on above: Performed By: #### 2 081736, 80478221, 8277796, 3556467, 6505830, 8264699 #### [facility] [address] [place] [address] ALT No additional P-5'-P [Catalytic activity/Vol] 13 Int._Unit/L Normal 6-46 [facility] Comment on above: Performed By: #### 2 216832, 54525169, 8414788, 0601784, 4004163, 8191833 #### [facility] [address] [place] [address] AST [Catalytic activity/Vol] 17 Int._Unit/L Normal 5-43 [facility] Comment on above: Performed By: #### 2 398504, 01680089, 2042510, 8433966, 5282203, 5151301 #### [facility] [address] [place] [address] Bilirubin [Mass/Vol] 0.6 mg/dL Normal 0.0-1.1 [facility] Comment on above: Performed By: #### 2 591414, 53602624, 0715370, 4708983, 2340426, 8408489 #### [facility] [address] [place] [address] Globulin (S) [Mass/Vol] 3.3 g/dL Normal 1.4-4.0 [facility] Comment on above: Performed By: #### 2 194616, 61767749, 4754386, 0368674, 8082637, 3989445 #### [facility] [address] [place] [address] Protein [Mass/Vol] 6.8 g/dL Normal 6.0-7.8 [facility] Comment on above: Performed By: #### 2 282997, 58118028, 9549666, 7290253, 3957583, 7078311 #### [facility] [address] [place] [address] Bilirubin.direct [Mass/Vol] mg/dL Normal 0.1-0.4 [facility] Comment on above: Performed By: #### 2 590504, 55681869, 2649546, 8088120, 8667638, 0426015 #### [facility] [address] [place] [address] Lipase Levelon 06-14-2023 Lipase [Catalytic activity/Vol] 28 U/L Normal 13-58 [facility] Comment on above: Performed By: #### 2 254091, 53422266, 3340042, 5982870, 4132158, 1362897 #### [facility] [address] [place] [address] Progress Note-Nurseon 2022 Progress Note-Nurse Lizet RN verbalize d she was unable to locate patient at this time Normal [facility] UA With Cult Reflexon 2022 Bacteria LM Ql (Urine sed) TRACE Normal Trace [facility] Comment on above: Performed By: #### 2 336070, 86905525, 4488145, 7317893, 6866206, 9007700 #### [facility] [address] [place] [address] Bilirubin Ql (U) Negative Normal Negative [facility] Comment on above: Performed By: #### 2 129676, 74309976, 8926957, 3145491, 3146754, 5245146 #### [facility] [address] [place] [address] Clarity (U) CLEAR Normal Clear [facility] Comment on above: Performed By: #### 2 975987, 34744907, 0946734, 9013385, 1636240, 5326652 #### [facility] [address] [place] [address] Color (U) YELLOW Normal Yellow [facility] Comment on above: Performed By: #### 2 187357, 56443634, 5971824, 3152028, 0835525, 3094856 #### [facility] [address] [place] [address] Epithelial cells.squamous LM.HPF (Urine sed) [#/Area] 3-4 Normal 0-2 [facility] Comment on above: Performed By: #### 2 682540, 16252823, 4054503, 5541756, 0563721, 3767800 #### [facility] [address] [place] [address] Glucose Test strip (U) [Mass/Vol] Negative Normal Negative [facility] Comment on above: Performed By: #### 2 050458, 80034741, 4452576, 7851842, 8890099, 5923433 #### [facility] [address] [place] [address] Hemoglobin Ql (U) Negative Normal Negative [facility] Comment on above: Performed By: #### 2 715817, 64240319, 7909552, 8208434, 3068184, 9100051 #### [facility] [address] [place] [address] Ketones (U) [Mass/Vol] Negative Normal Negative [facility] Comment on above: Performed By: #### 2 671000, 04164905, 9344088, 1524527, 6658460, 3657290 #### [facility] [address] [place] [id number] [place].plasma/[place] .RBC (Bld) [Mass ratio] 0-3 Normal 0-3 [facility] Comment on above: Performed By: #### 2 647062, 78540974, 0999799, 0935472, 2161140, 9557000 #### [facility] [address] [place] [address] Mucus Ql (Urine sed) TRACE Normal Fish er [facility] Comment on above: Performed By: #### 2 742264, 12489516, 2319246, 2662089, 2676076, 0626491 #### [facility] [address] [place] [address] Nitrite Ql (U) Negative Normal Negative [facility] Comment on above: Performed By: #### 2 305492, 09682447, 7134916, 1216999, 7422877, 4697953 #### [facility] [address] [place] [address] pH (U) 6.5 [pH] Invalid Interpretation Code 5.0-9.0 [facility] Comment on above: Performed By: #### 2 632916, 72461726, 0770491, 9273725, 3050957, 3718716 #### [facility] [address] [place] [address] Protein (U) [Mass/Vol] Negative Normal Negative [facility] [facility] Comment on above: Performed By: #### 2 902659, 04235860, 6687124, 3158838, 2512473, 5532434 #### [facility] [address] [place] [address] Specific gravity (U) [Rel density] 1.015 Invalid Interpretation Code 1.005-1.030 [facility] Comment on above: Performed By: #### 2 400104, 90065105, 3207576, 3929715, 3721615, 3168815 #### [facility] [address] [place] [address] Type of Urine collection method Clean Catch Normal [facility] Comment on above: Performed By: #### 2 882916, 17525916, 7386084, 1444149, 2523028, 6201929 #### [facility] [address] [place] [address] Urobilinogen Qn (U) 0.2 {Rola'U}/dL Normal 0.0-1.0 [facility] Comment on above: Performed By: #### 2 564002, 84588535, 0143343, 0949669, 0475556, 6260775 #### [facility] [address] [place] [address] WBC Auto Ql (U) TRACE Abnormal Negative [facility] Comment on above: Performed By: #### 2 208424, 06085093, 4161274, 4620169, 6584228, 1715928 #### [facility] [address] [place] [address] WBC LM.HPF (Urine sed) [#/Area] 0-5 Normal 0-5 [facility] Comment on above: Performed By: #### 2 662221, 37880948, 7044742, 0817791, 8933337, 3084067 #### [facility] [address] [place] [address] URINALYSISOrdered By: An Mccarty on 06-14-2023 Bacteria LM Ql (Urine sed) Trace /HPF Normal Trace/HPF FT UA Auto SS Bilirubin Ql (U) Negative (06/14/23 10:13 AM) Normal Negative [facility] UA Auto SS Clarity (U) Clear (06/14/23 10:13 AM) Normal Clear [facility] UA Auto SS Color (U) Yellow (06/14/23 [...] Normal Negative [facility] UA Auto SS [place].plasma/[place] .RBC (Bld) [Mass ratio] 0-3 /HPF Normal [...] [facility] UA Auto SS Urobilinogen Qn (U) 0.8531037 {Rola'U}/dL Normal 0.0 - 1.0 EU/dL [facility] [...] LMP : 02/21/23?? Irregular History 2 Normal [facility] eGFRon 06-14-2023 GFR/1.73 sq M.predicted among non-blacks MDRD (S/P/Bld) [Vol rate/Area] 130 mL/min/1.73 m2 Normal >=59 [facility] Comment on above: Order Comment: Order added by Discern Expert. Result Comment: [employer] lucy kidney disease could be indicated at eGFR's of less than 60 mL/min/1.73m2. Kidney failure is indicated at less than 15 mL/min/1.73m2. Performed By: #### 2 648913, 19216543, 7769991, 4537608, 0266885, 7605060 #### [facility] [address] [place] [address] CHEMISTRYOrdered By: SYSTEM SYSTEM on 06-12-2023 TSH Qn 3.80 m[IU]/L Normal 0.34 - 5.60 mcIU/mL [facility] Remisol Consent for Treatmenton 05-16 Consent for Treatment [id number]#1.00CD:12 7 Normal [facility] Physician Orderon 06-12-2023 Physician Order [id number]#1.00CD:12 7 Normal [facility] TSHon 06-12-2023 TSH Qn 3.80 m[IU]/L Normal 0.34-5.60 [facility] Comment on above: Performed By: #### 2 918584, 62592447, 7264136, 5146975, 8816152, 3491983 #### [facility] [address] [place] [address] BhCG Quanton 05-22-2023 HCG.beta subunit Qn 672935 m[IU]/mL High 1-3 [facility] Comment on above: Result Comment: GEST ATIONAL AGE HCG RANGE (mIU/mL) NON- <1-3 0.2-1 WEEKS 5-50 1-2 WEEKS 50-500 2-3 WEEKS 100-5,000 3-4 WEEKS 500-10,000 4-5 WEEKS 1,000-50,000 5-6 WEEKS 10,000-100,000 6-8 WEEKS 15,000-200,000 8-12 WEEKS 10,000-100,000 Performed By: #### 2 537036, 11527250, 4397045, 0486244, 7984276, 3252682 #### [facility] [address] [place] [address] Discharge Instructionson Discharge Instructions [id number]#[id number]:1 27 Normal [facility] ED Clinical Summaryon 2022 ED Clinical Summary (Inserted Image. Maryann ble to display) [address] [address] ED Clinical Summary Person Information Name: RONEN BROELIAS [place] Age: 27 Years : 1995 Sex: Female Language: Namibian PCP: Luis Carlos Jung MD Marital Status: Single Phone: [phone] Visit Id: Visit Reason: Abdominal pain - [...] 05/21/2023 23:23:44 05/21/2023 23:23:44 05/21/2023 23:23:44 ADDRESS: [address] [place] [address] [facility] [phone] PHYS DOC NOTES: MEDICAL INFORMATION: Prescriptions Given: New Medications [facility] 1986, [address] [facility] [place], [place] [id number], [phone] cephalexin (Keflex 500 mg Cap) 1 Capsules [...] EDUCATION INFORMATION: Instructions: Nonspecific Chest Pain, Adult, Uwqt-de-Trwn; Nausea and Vomiting, Adult, Rijv-xw-Trks; Abdominal Pain During , Imue-fv-Dglz Follow up: With: Address: When: Luis Carlos Jung [address], [facility] [address], [place] [address] Business (1) In 3 days 05/24/2023 Comments: [...] (nausea and vomiting); Vaginal bleeding in Normal [facility] ED Note-Physicianon 05-22-20 ED Note-Physician [...] and Complexity of Problems Differential Diagnosis: [] [facility] Data External documents reviewed: [] [...] day(s), # 15 cap(s), Refills(s) 0, Pharmacy: [facility] 1985, 162.6, cm, 05/21/23 20:50:00 EDT, Height/Length Dosing, 75.3, kg, 05/21/23 20:50:00 EDT, Weight Dosing famotidine, 20 mg = 2 mL, Soln-IV, IV Push, Once, Stop date 05/21/23 21:00:00 EDT, STAT, Start date 05/21/23 21:00:00 EDT, 05/21/23 21:00:00 EDT famotidine, 20 mg = 1 tab(s), Oral, Daily, # 14 tab(s), Refills(s) 0, Pharmacy: [facility] 1985, 162.6, cm, 05/21/23 20:50:00 EDT, Height/Length Dosing, 75.3, kg, 05/21/23 20:50:00 EDT, Weight Dosing ondansetron, 4 mg = 2 mL, Injection, IV Push, Once, Stop date 05/21/23 21:00:00 EDT, STAT, Start date 05/21/23 21:00:00 EDT, 05/21/23 21:00:00 EDT ondansetron, 4 mg = 1 tab(s), Oral, q8hr, # 12 tab(s), Refills(s) 0, Pharmacy: [facility] 1985, 162.6, cm, 05/21/23 20:50:00 EDT, Height/Length Dosing, 75.3, kg, 05/21/23 20:50:00 EDT, Weight Dosing Sodium Chloride 0.9% intravenous solution, 1,000 (more content not included)... Normal [facility] Comment on above: Result Comment: [...] these instructions at home: Medicines ? Take ufpv-nxp-jcrdlmw and prescription medicines only as told by [...] a heart-healthy diet. A diet and nutrition services manager (dietitian) can help you to learn healthy [...] 12/15/2021 Document Reviewed: 12/15/2021 Elsevier Patient Education ? 2022 [employer] Nausea and Vomiting, Adult Nausea is [...] Follow th (more content not included)... Normal [facility] ED Patient Summaryon 023 ED Patient Summary (Inserted Image. Maryann ble to display) [place] [id number] Patient Discharge Instructions Person Information Name: ADALIRONEN GutierrezSUSAN D Age: 27 Years Arrival Date: 05/21/2023 20:37:57 Discharge Diagnosis: Abdominal pain, acute; Chest pain; N&V (nausea and vomiting); Vaginal bleeding in Primary Care Physician: Luis Carlos Jung MD Provider Information Primary Provider: Gopi Rodriguez DO Advanced Patient Transition Specialist:None The exam and treatment you received in the Emergency Department were for an urgent problem and are not intended as complete care. It is important that you follow up with a doctor, nurse practitioner, or physician?s care team assistant for ongoing care. If your symptoms [...] Instructions: With: Address: When: Luis Carlos [address], [address] [place] [phone] Business (1) In 3 days 05/24/2023 Comments: [...] Patient Education Materials: Nonspecific Chest Pain, Adult, Pbly-fj-Qkxr; Nausea and Vomiting, Adult, Rouq-uq-Tgft; Abdominal Pain During , Ntpd-qt-Htjm A MESSAGE TO ALL PATIENTS REGARDING OPIOIDS PRESCRIPTION OPIOIDS: WHAT YOU NEED TO KNOW Prescription opioids can be used to help relieve argxcszl-dh-eneagd pain and are often prescribed following a [...] dispose of unused prescription opioids: Find your [facility] drug t (more content not included)... Normal [facility] UA With Cult Reflexon 2022 Bacteria LM Ql (Urine sed) TRACE Normal Trace [facility] Comment on above: Performed By: #### 2 315480, 52773934, 8536539, 3291308, 2339318, 8906333 #### [facility] [address] [place] [address] Bilirubin Ql (U) Negative Normal Negative [facility] Comment on above: Performed By: #### 2 937834, 72223154, 9422203, 0689193, 7787811, 0185125 #### [facility] [address] [place] [address] Clarity (U) CLEAR Normal Clear [facility] Comment on above: Performed By: #### 2 732089, 67867128, 5502941, 2000466, 1586437, 9981587 #### [facility] [address] [place] [address] Color (U) DARK YELLO Abnormal Yellow [facility] Comment on above: Performed By: #### 2 978605, 06197342, 3599120, 6109211, 2837195, 7257734 #### [facility] [address] [place] [address] Epithelial cells.squamous LM.HPF (Urine sed) [#/Area] 0-2 Normal 0-2 [facility] Comment on above: Performed By: #### 2 173293, 32691370, 9684300, 0846041, 3339513, 3861907 #### [facility] [address] [place] [address] Glucose Test strip (U) [Mass/Vol] Negative Normal Negative [facility] Comment on above: Performed By: #### 2 180344, 54221489, 5358235, 6769732, 1898958, 1847789 #### [facility] [address] [place] [address] Hemoglobin Ql (U) TRACE Abnormal Negative [facility] Comment on above: Performed By: #### 2 204354, 32030414, 9229130, 6254054, 1944664, 5167482 #### [facility] [address] [place] [address] Ketones (U) [Mass/Vol] TRACE Abnormal Negative [facility] Comment on above: Performed By: #### 2 970003, 21187390, 8956154, 1782260, 4100963, 9617062 #### [facility] [address] [place] [address] [place].plasma/[place] .RBC (Bld) [Mass ratio] 4-20 Normal 0-3 [facility] Comment on above: Performed By: #### 2 952856, 53814904, 3048668, 4225475, 8810272, 3562058 #### [facility] [address] [place] [address] Mucus Ql (Urine sed) 1+ Normal [facility] Comment on above: Performed By: #### 2 402065, 28138843, 1678602, 1155200, 5652247, 3779338 #### [facility] [address] [place] [address] Nitrite Ql (U) Negative Normal Negative [facility] Comment on above: Performed By: #### 2 592169, 50795859, 2860646, 7601734, 7308602, 5429990 #### [facility] [address] [place] [address] pH (U) 6.0 [pH] Invalid Interpretation Code 5.0-9.0 [facility] Comment on above: Performed By: #### 2 226231, 08061202, 2967631, 6717951, 8921674, 8111789 #### [facility] [address] [place] [address] Protein (U) [Mass/Vol] 2+ Abnormal Negative [facility] Comment on above: Performed By: #### 2 718834, 17612751, 4394637, 1727229, 4951453, 8697343 #### [facility] [address] [place] [address] Specific gravity (U) [Rel density] >=1.030 Invalid Interpretation Code 1.005-1.030 [facility] Comment on above: Performed By: #### 2 467380, 77977597, 0301378, 4222750, 8954984, 3948268 #### [facility] [address] [place] [address] Type of Urine collection method Clean Catch Normal [facility] Comment on above: Performed By: #### 2 975837, 72777152, 1937639, 3624170, 9025208, 8475896 #### [facility] [address] [place] [address] Urobilinogen Qn (U) 0.2 {Rola'U}/dL Normal 0.0-1.0 [facility] Comment on above: Performed By: #### 2 232837, 30078182, 9770326, 8705992, 7239323, 9368949 #### [facility] [address] [place] [address] WBC Auto Ql (U) Negative Normal Negative [facility] Comment on above: Performed By: #### 2 425597, 99710028, 0088679, 7568012, 3119970, 6763130 #### [facility] [address] [place] [address] WBC LM.HPF (Urine sed) [#/Area] 0-5 Normal 0-5 [facility] Comment on above: Performed By: #### 2 004945, 88847052, 1476531, 5884418, 4670379, 2977212 #### [facility] [address] [place] [address] US 1st Trimesteron 05-22-2023 US 1st Trimester [...] corresponding gestational age +/- 1 week are: [place] Rump Length: 2.2 cm Composite Ultrasound Age: 9 weeks, 0 days DARON from average ultrasound age: 0312/24/2023 There is no evidence of subchorionic hemorrhage. The heart rate is measured at 167 bpm. The ovaries are not visualized. No significant free fluid. Ordering Provider: Gopi Rodriguez FINAL REPORT Dictated: 05/22/2023 9:10 am Ladarius Davis MD. Signed (Electronic Signature): 05/22/2023 9:10 am Signed by: Ladarius Davis MD Transcribed by: RINKU Technologist: LEE Technical Comments Irregular History 2 Technical Comments Para 1 Transabdominal Ultrasound Performed FHR (bpm) 167 [place] Rump Length (in cm) 2.22 Normal [facility] Auto Diffon 05-21-2023 Basophils/100 WBC (Bld) 1.0 % Normal 0.0-2.0 [facility] Comment on above: Order Comment: Order Added by Discern Expert. Performed By: #### 2 821742, 32689285, 9344365, 1512610, 8655950, 1512501 #### [facility] [address] [place] [address] Basophils/Leukocytes Auto (Bld) [Pure # fraction] 0.1 E9/L Normal 0.0-0.2 [facility] Comment on above: Order Comment: Order Added by Discern Expert. Performed By: #### 2 918833, 15186066, 6912241, 3344910, 7542054, 9766846 #### [facility] [address] [place] [address] Eosinophils/100 WBC (Bld) 1.5 % Normal 0.0-8.0 [facility] Comment on above: Order Comment: Order Added by Discern Expert. Performed By: #### 2 725931, 62777074, 4159885, 3956147, 0368465, 1900757 #### [facility] [address] [place] [address] Eosinophils/Leukocytes Auto (Bld) [Pure # fraction] 0.1 E9/L Normal 0.0-0.5 [facility] Comment on above: Order Comment: Order Added by Gisselle Expert. Performed By: #### 2 639838, 17896202, 3276196, 6952035, 9568441, 1735971 #### [facility] [address] [place] [address] Lymphocytes/100 WBC (Bld) 36.6 % Normal 14.0-50.0 [facility] Comment on above: Order Comment: Order Added by Discern Expert. Performed By: #### 2 056087, 59382734, 2459767, 7370677, 3290637, 3179008 #### [facility] [address] [place] [address] Lymphocytes/Leukocytes Auto (Bld) [Pure # fraction] 2.5 E9/L Normal 1.0-4.0 [facility] Comment on above: Order Comment: Order Added by Discern Expert. Performed By: #### 2 068689, 55943042, 9496174, 4058197, 1932995, 6141277 #### [facility] [address] [place] [address] Monocytes/100 WBC (Bld) 8.2 % Normal 4.0-14.0 [facility] Comment on above: Order Comment: Order Added by Discern Expert. Performed By: #### 2 893305, 03544776, 8801508, 1897269, 1240568, 0795181 #### [facility] [address] [place] [address] Monocytes/Leukocytes Auto (Bld) [Pure # fraction] 0.6 E9/L Normal 0.2-1.0 [facility] Comment on above: Order Comment: Order Added by Discern Expert. Performed By: #### 2 474760, 07577272, 2986594, 8289829, 0590631, 6128488 #### [facility] [address] [place] [address] Neutrophils/100 WBC (Bld) 52.7 % Normal 36.0-75.0 [facility] Comment on above: Order Comment: Order Added by Discern Expert. Performed By: #### 2 645100, 29916770, 4700985, 1186620, 5500190, 1137001 #### [facility] [address] [place] [address] Neutrophils/Leukocytes Auto (Bld) [Pure # fraction] 3.6 E9/L Normal 2.0-7.5 [facility] Comment on above: Order Comment: Order Added by Discern Expert. Performed By: #### 2 382408, 77511060, 2155259, 8392700, 1005869, 3296793 #### [facility] [address] [place] [address] BMPon 05-21-2023 Creatinine [Mass/Vol] 0.7 mg/dL Normal 0.5-1.3 [facility] Comment on above: Performed By: #### 2 426883, 01997545, 2317961, 4616834, 5399460, 3932722 #### [facility] [address] [place] [address] Urea nitrogen [Mass/Vol] 8 mg/dL Normal 5-21 [facility] Comment on above: Performed By: #### 2 793887, 90651154, 6934426, 9974689, 3293317, 6493253 #### [facility] [address] [place] [address] Urea nitrogen/Creatinine [Mass ratio] 11 No Units Normal 10-20 [facility] Comment on above: Performed By: #### 2 516575, 79567569, 5529004, 9290094, 4159179, 8583127 #### [facility] [address] [place] [address] Anion gap [Moles/Vol] 12 mmol/L Normal 6-16 [facility] Comment on above: Performed By: #### 2 769662, 55410802, 2443972, 3526490, 8817339, 9998687 #### [facility] [address] [place] [address] Calcium [Mass/Vol] 9.2 mg/dL Normal 8.9-11.1 [facility] Comment on above: Performed By: #### 2 708276, 59611422, 9660235, 7760037, 9614981, 5660147 #### [facility] [address] [place] [address] Chloride [Moles/Vol] 104 mmol/L Normal 101-111 Fish [facility] Comment on above: Performed By: #### 2 561556, 54855286, 3605247, 4346663, 8988682, 9858176 #### [facility] [address] [place] [address] CO2 [Moles/Vol] 24 mmol/L Normal 21-31 [facility] Comment on above: Performed By: #### 2 718749, 67165131, 2626985, 7120460, 4845832, 4083339 #### [facility] [address] [place] [address] Glucose [Mass/Vol] 87 mg/dL Normal 55-199 [facility] Comment on above: Result Comment: If t his glucose result represents a fasting glucose, interpretation should refer to the following reference range: 55-99 mg/dL Performed By: #### 2 833052, 42442861, 0954080, 4817609, 2177040, 2376905 #### [facility] [address] [place] [address] Potassium [Moles/Vol] 3.2 mmol/L Low 3.5-5.3 [facility] Comment on above: Performed By: #### 2 414961, 13399628, 0967740, 2109700, 3898003, 5608943 #### [facility] [address] [place] [address] Sodium [Moles/Vol] 137 mmol/L Normal 135-145 [facility] Comment on above: Performed By: #### 2 130493, 50193235, 0842776, 4102052, 4822272, 3117883 #### [facility] [address] [place] [address] CBC w/ Auto Diffon 3 Erythrocyte distribution width (RBC) [Ratio] 13.3 % Normal 10.9-14.2 [facility] Comment on above: Performed By: #### 2 632363, 85260395, 4739992, 1786248, 0730626, 1565746 #### [facility] [address] [place] [address] Hematocrit (Bld) [Volume fraction] 39.0 % Normal 34.0-46.0 [facility] Comment on above: Performed By: #### 2 989481, 50438102, 0971850, 8791022, 2426767, 1555521 #### [facility] [address] [place] [address] Hemoglobin (Bld) [Mass/Vol] 13.3 g/dL Normal 12.0-16.0 [facility] Comment on above: Performed By: #### 2 674549, 05246995, 7931483, 5683880, 4084633, 7748141 #### [facility] [address] [place] [address] MCH (RBC) [Entitic mass] 30.3 pg Normal 27.0-34.0 [facility] Comment on above: Performed By: #### 2 153304, 88983355, 6197230, 4304974, 7694563, 2292885 #### [facility] [address] [place] [address] MCHC (RBC) [Mass/Vol] 34.2 g/dL Normal 31.4-36.0 [facility] Comment on above: Performed By: #### 2 012327, 55728052, 6290195, 0194532, 0827723, 9231989 #### [facility] [address] [place] [address] MCV (RBC) [Entitic vol] 88.7 fL Normal 80.0-100.0 [facility] Comment on above: Performed By: #### 2 973569, 41695501, 2061927, 0460813, 7731815, 8818918 #### [facility] [address] [place] [address] Platelet mean volume (Bld) [Entitic vol] 7.8 fL Normal 6.4-10.8 [facility] Comment on above: Performed By: #### 2 782365, 43912067, 5062755, 5864336, 8172671, 8917901 #### [facility] [address] [place] [address] Platelets (Bld) [#/Vol] 225.0 E9/L Normal 150.0-500.0 [facility] Comment on above: Performed By: #### 2 853188, 70532765, 5684890, 0928950, 4777111, 0891130 #### [facility] [address] [place] [address] RBC (Bld) [#/Vol] 4.4 E12/L Normal 4.3-5.9 [facility] Comment on above: Performed By: #### 2 757020, 09884456, 0579101, 8376798, 5225324, 8696202 #### [facility] [address] [place] 6[address] WBC corrected for nucl RBC Auto (Bld) [#/Vol] 6.8 E9/L Normal 4.0-11.0 [facility] Comment on above: Performed By: #### 2 731638, 20614366, 1261180, 7844498, 7762928, 4114953 #### [facility] [address] [place] [address] CHEMISTRYOrdered By: SYSTEM SYSTEM on 05-21-2023 HCG.beta subunit Qn 034127 m[IU]/mL High 1 - 3 mIU/mL [facility] [...] Remisol Consent for Treatmenton Consent for Treatment [id number]:12 7 Normal [facility] HEMATOLOGYOrdered By: SYSTEM SYSTEM on [...] 6.8 E9/L Normal 4.0 - 11.0 E9/L [facility] Hep Func Panelon 05-21-2023 Bilirubin.indirect [Mass or moles/Vol] UTC Abnormal 0.1-0.9 [facility] Comment on above: Result Comment: Resu lt verified by Discern Rule. Performed result UTC (Unable to Calculate) was sent as an Alpha code due the inability to calculate a valid numeric value. Performed By: #### 2 656606, 34638421, 6269142, 9036166, 6488666, 8654016 #### [facility] [address] [place] [address] Albumin [Mass/Vol] 3.8 g/dL Normal 3.3-5.0 [facility] Comment on above: Performed By: #### 2 137864, 01245921, 0695767, 7525702, 5191853, 1572241 #### [facility] [address] [place] [address] Albumin/Globulin (S) [Mass conc ratio] 1.2 Normal 1.1-2.2 [facility] Comment on above: Performed By: #### 2 323487, 31981418, 6485510, 1929822, 9319279, 9921370 #### [facility] [address] [place] [address] ALP [Catalytic activity/Vol] 42 Int._Unit/L Normal 21-98 [facility] Comment on above: Performed By: #### 2 594479, 11657207, 0901185, 5177186, 0010519, 6006632 #### [facility] [address] [place] [address] ALT No additional P-5'-P [Catalytic activity/Vol] 13 Int._Unit/L Normal 6-46 [facility] Comment on above: Performed By: #### 2 468409, 16266568, 0681547, 2737952, 4801986, 7951723 #### [facility] [address] [place] [address] AST [Catalytic activity/Vol] 14 Int._Unit/L Normal 5-43 [facility] Comment on above: Performed By: #### 2 932977, 06652353, 8283692, 2270035, 7061807, 9563216 #### [facility] [address] [place] [address] Bilirubin [Mass/Vol] 0.5 mg/dL Normal 0.0-1.1 [facility] Comment on above: Performed By: #### 2 564770, 78332209, 7450201, 8840682, 0370989, 1912760 #### [facility] [address] [place] [address] Globulin (S) [Mass/Vol] 3.1 g/dL Normal 1.4-4.0 [facility] Comment on above: Performed By: #### 2 425124, 72041522, 7957697, 6591945, 7363001, 4941785 #### [facility] [address] [place] [address] Protein [Mass/Vol] 6.9 g/dL Normal 6.0-7.8 [facility] Comment on above: Performed By: #### 2 156885, 83662792, 3727781, 8835303, 1648606, 0790001 #### [facility] [address] [place] [address] Bilirubin.direct [Mass/Vol] mg/dL Normal 0.1-0.4 [facility] Comment on above: Performed By: #### 2 380428, 33764100, 0638166, 7367736, 3672378, 5134494 #### [facility] [address] [place] [address] Lipase Levelon 05-21-2023 Lipase [Catalytic activity/Vol] 31 U/L Normal 13-58 [facility] Comment on above: Performed By: #### 2 328256, 35177367, 4373370, 5111115, 5147456, 2953259 #### [facility] [facility] [address] [place] [address] Troponin 0 Hr.on 05-21-2023 Troponin I.cardiac [Mass/Vol] 2.50 pg/mL Low 10.10-27.10 [facility] Comment on above: Result Comment: The 95% CI (Confidence Interval) PPV (Positive Predictive Value) for myocardial infarction in females is 38 pg/mL, in males 51 pg/mL. The results should be used in conjunction with clinical conditions of myocardial infarction. (Access High Sensitivity Troponin I Instructions For Use, Ziggy Zscaler, May 2018) Performed By: #### 2 065266, 36735250, 6053735, 1676154, 0245963, 1843072 #### [facility] [address] [place] [address] URINALYSISOrdered By: Jose Miguel nelson on 05-21-2023 [...] [Mass/Vol] Negative (05/21/23 10:17 PM) Normal Negative FT UA Auto SS Hemoglobin Ql (U) Trace *ABN* (05/21/23 10:17 PM) Invalid Interpretation Code Negative [facility] UA Auto SS Ketones (U) [Mass/Vol] Trace *ABN* (05/21/23 10:17 PM) Invalid Interpretation Code Negative [facility] UA Auto SS [place].plasma/[place] .RBC (Bld) [Mass ratio] 4-20 /HPF Normal 0-3/HPF [facility] UA Auto SS Mucus Ql (Urine sed) 1+ (05/21/23 10:17 PM) Normal FT UA Auto SS Nitrite [...] Desc Clean Catch (05/21/23 10:17 PM) Normal [facility] UA Auto SS Urobilinogen Qn (U) 0.3322926 {Rola'U}/dL Normal 0.0 - 1.0 EU/dL FT UA Auto SS WBC Auto Ql (U) Negative (05/21/23 10:17 PM) Normal Negative [facility] UA Auto SS WBC LM.HPF (Urine sed) [#/Area] 0-5 /HPF Normal 0-5/HPF [facility] UA Auto SS eGFRon 05-21-2023 GFR/1.73 sq M.predicted among non-blacks MDRD (S/P/Bld) [Vol rate/Area] 120 mL/min/1.73 m2 Normal >=59 [facility] Comment on above: Order Comment: Order added by Discern Expert. Result Comment: [employer]orer [employer] lucy kidney disease could be indicated at eGFR's of less than 60 mL/min/1.73m2. Kidney failure is indicated at less than 15 mL/min/1.73m2. Performed By: #### 2 876406, 64680733, 9651597, 5935166, 6980504, 4873062 #### [facility] [address] [place] [address] PAP [id number] 05-03-2023 C. trachomatis rRNA MAHAD+probe Ql (Cvx) Negative Invalid Interpretation Code Negative [facility] Comment on above: Performed By: #### 2 826823, 75028640, 7049172, 5187090, 2894438, 6021239 #### [facility] [address] [place] [address] Cytology report Cyto stain Doc (Cvx/Vag) Note Invalid Interpretation Code [facility] Comment on above: Result Comment: TEST S RESULT FLAG UNITS REF RANGE LAB Clinician Provided Cytology Information Source.............Endocervix No. of containers..01 ThinPrep Vial DIAGNOSIS: 01 NEGATIVE FOR INTRAEPITHELIAL LESION OR MALIGNANCY. Specimen adequacy: 01 Satisfactory for evaluation. Endocervical and/or squamous metaplastic cells (endocervical component) are present. Performed by: Serena Shea, Certified Lactation Educator ([facility]) . 01 Note: Note 01 The [...] <-Panic Low,>-Panic High,A-Abnormal,AA-Critical Abnormal Performed at: [address] [id number] Joya Walton MD, Performed By: #### 2 317958, 79306207, 8801510, 9766267, 5522471, 6338261 #### [facility] [address] [place] [address] N. gonorrhoeae rRNA MAHAD+probe Ql (Cvx) Negative Invalid Interpretation Code Negative [facility] Comment on above: Result Comment: Perf ormed at: [address] [phone] [id number] MD Anton Hinson Performed at: =[address] [id number] MD Anton Hinson Performed By: #### 2 783213, 83224620, 7804077, 8503527, 0841005, 0700070 #### [facility] [address] [place] [address] C Urineon 05-02-2023 Bacteria identified Cx Nom [...] Locations R1: This test was performed at: [facility], [address] [place] [address], [address] , [place], Normal [facility] Comment on above: Performed By: #### 2 838684, 02599835, 5039140, 7468298, 4861990, 3598279 #### [facility] [address] [place] [address] HIV Screen 4th Generation wR fxon 05-01-2023 HIV 1+2 Ab+HIV1 p24 Ag IA Ql Non-Reactive Invalid Interpretation Code Non Reactive [facility] Comment on above: Result Comment: HIV Negative HIV-1/HIV-2 antibodies and HIV-1 p24 antigen were NOT detected. There is no laboratory evidence of HIV infection. Performed at: [facility] [address] [id number] PhD Carolnie [place] Performed By: #### 2 364997, 37118619, 7331532, 8017992, 6398911, 5725143 #### [facility] [address] [place] [address] Hep Bs Agon 05-01-2023 HBV surface Ag IA Ql Negative Invalid Interpretation Code Negative [facility] Comment on above: Result Comment: Perf ormed at: [facility] [id number] PhD Caroline [place] Performed By: #### 2 445136, 82039098, 5149305, 3031865, 7034123, 0084175 #### [facility] [address] [place] [address] RPR with Conf Rfxon 05-01-20 23 Reagin Ab RPR Ql (S) Non-Reactive Invalid Interpretation Code Non Reactive [facility] Comment on above: Result Comment: Perf ormed at: [address] [id number] PhD Caroline [place] Performed By: #### 2 069813, 04674876, 9444038, 5341633, 6375799, 2823836 #### [facility] [address] [place] [address] Rubella IgGon 05-01-2023 Rubella virus IgG Qn (S) [IU]/mL Low Immune >0.99 [facility] Comment on above: Result Comment: Non- immune <0.90 Equivocal 0.90 - 0.99 Immune >0.99 Performed at: [address] [id number] PhD Caroline [place] Performed By: #### 2 152321, 11334812, 2376851, 4671675, 3659024, 3558891 #### [facility] [address] [place] [address] ABO/Rhon 04-30-2023 ABO/Rh Positive Invalid Interpretation Code [facility] Comment on above: Performed By: #### 2 546842, 73382423 ####[facility] [address] [place] [address] ABSCon 04-30-2023 ABSC Gel Interp Negative Normal [facility] Comment on above: Performed By: #### 2 490430, [id number] ####[facility] [address] [place] [address] BLOOD BANKOrdered By: Diamond Junior on 04-30-2023 ABO/Rh Interp Positive Invalid Interpretation Code [facility] BB Subsection ABSC Gel Interp Negative (04/30/23 9:30 AM) Normal [facility] BB Subsection BhCG Quanton 04-30-2023 [place] [address] m[IU]/mL High 1-3 F [facility] Comment on above: Result Comment: GEST ATIONAL AGE HCG RANGE (mIU/mL) NON- <1-3 0.2-1 WEEKS 5-50 1-2 WEEKS 50-500 2-3 WEEKS 100-5,000 3-4 WEEKS 500-10,000 4-5 WEEKS 1,000-50,000 5-6 WEEKS 10,000-100,000 6-8 WEEKS 15,000-200,000 8-12 WEEKS 10,000-100,000 Performed By: #### 2 380373, 40082929, 3541462, 5504509, 1063254, 3466882 #### [facility] [address] [place] [address] CBC w/Indiceson 04-30-2023 Erythrocyte distribution width (RBC) [Ratio] 13.7 % Normal 10.9-14.2 [facility] Comment on above: Performed By: #### 2 202325, 33808701, 7515087, 9593337, 2133902, 3580578 #### [facility] [address] [place] [address] Hematocrit (Bld) [Volume fraction] 40.7 % Normal 34.0-46.0 [facility] Comment on above: Performed By: #### 2 594778, 96737043, 3395252, 5399972, 0705342, 3537389 #### [facility] [address] [place] [address] Hemoglobin (Bld) [Mass/Vol] 13.8 g/dL Normal 12.0-16.0 [facility] Comment on above: Performed By: #### 2 651556, 59328413, 4779630, 0105957, 7994628, 6800331 #### [facility] [address] [place] [address] MCH (RBC) [Entitic mass] 30.5 pg Normal 27.0-34.0 [facility] Comment on above: Performed By: #### 2 099691, 86614480, 0969592, 6415744, 1958132, 9464328 #### [facility] [address] [place] [address] MCHC (RBC) [Mass/Vol] 33.9 g/dL Normal 31.4-36.0 [facility] Comment on above: Performed By: #### 2 551253, 55866541, 3247523, 1345491, 4160905, 0223323 #### [facility] [address] [place] [address] MCV (RBC) [Entitic vol] 89.9 fL Normal 80.0-100.0 [facility] Comment on above: Performed By: #### 2 861931, 93252422, 5726425, 4301998, 0947219, 5136115 #### [facility] [address] [place] [address] Platelet mean volume (Bld) [Entitic vol] 8.2 fL Normal 6.4-10.8 [facility] Comment on above: Performed By: #### 2 093915, 41946983, 0014423, 8796355, 8830840, 7256430 #### [facility] [address] [place] [address] Platelets (Bld) [#/Vol] 279.0 E9/L Normal 150.0-500.0 [facility] Comment on above: Performed By: #### 2 497029, 06667052, 6362905, 2612998, 2950069, 0768040 #### [facility] [address] 6[address] RBC (Bld) [#/Vol] 4.5 E12/L Normal 4.3-5.9 [facility] Comment on above: Performed By: #### 2 408294, 19394701, 9640449, 2770293, 6629933, 7790620 #### [facility] [address] [place] [address] WBC corrected for nucl RBC Auto (Bld) [#/Vol] 5.8 E9/L Normal 4.0-11.0 [facility] Comment on above: Performed By: #### 2 314993, 23384978, 0389282, 1828648, 1363999, 4497127 #### [facility] [address] [place] [address] CHEMISTRYOrdered By: SYSTEM SYSTEM on 04-30-2023 [place] [address] m[IU]/mL High 1 - 3 mIU/mL [facility] Remisol Consent for Treatmenton 04-14 Consent for Treatment [id number]#1.00CD:12 7 Normal [facility] HEMATOLOGYOrdered By: Temi Romero on 04-30-2023 Erythrocyte distribution width (RBC) [Ratio] 13.7 % Normal 10.9 - 14.2 % [facility] HemeAutoSS Hematocrit (Bld) [Volume fraction] 40.7 % [...] Normal 4.0 - 11.0 E9/L [facility] HemeAutoSS PAP [id number] 04-30-2023 Collection Technique BRUSH-SPATULA Normal F [facility] Comment on above: Performed By: #### 2 342448, 41823946, 2770336, 5813825, 0263549, 7578323 #### [facility] [address] [place] [address] Gynecological Body Site ENDOCERVIX Normal [facility] Comment on above: Performed By: #### 2 184700, 56802578, 4869817, 8145202, 4092160, 4328735 #### [facility] [address] [place] [address] Physician Orderon 04-30-2023 Physician Order [id number]#1.00CD:1 27 Normal [facility] Physician Order [id number]#1.00CD:1 27 Normal [facility] BhCG Quanton 04-26-2023 [place] [address] m[IU]/mL High 1-3 F [facility] Comment on above: Result Comment: GEST ATIONAL AGE HCG RANGE (mIU/mL) NON- <1-3 0.2-1 WEEKS 5-50 1-2 WEEKS 50-500 2-3 WEEKS 100-5,000 3-4 WEEKS 500-10,000 4-5 WEEKS 1,000-50,000 5-6 WEEKS 10,000-100,000 6-8 WEEKS 15,000-200,000 8-12 WEEKS 10,000-100,000 Performed By: #### 2 572490, 51158904, 8410625, 4042267, 4965342, 3337744 #### [facility] [address] [place] [address] CHEMISTRYOrdered By: SYSTEM SYSTEM on 04-26-2023 [place] [address] m[IU]/mL High 1 - 3 mIU/mL [facility] Remisol Consent for Treatmenton 04-14 Consent for Treatment [id number]#1.00CD:12 7 Normal [facility] Discharge Instructionson Discharge Instructions [id number]#1.00CD:1 27 Normal [facility] ED Clinical Summaryon 2022 ED Clinical Summary (Inserted Image. Maryann ble to display) [address] [address] ED Clinical Summary Person Information Name: SUSAN BRO [place] Age: 27 Years : 1995 Sex: Female Language: Namibian PCP: MILLAN CLAIMS ADJUSTER CROP, THANG Marital Status: Single Phone: [phone] Visit Id: Visit Reason: Abdominal pain - [...] 04/26/2023 11:11:44 04/26/2023 11:11:44 ADDRESS: [address] [facility] [phone] [facility] DOC NOTES: MEDICAL INFORMATION: Prescriptions Given: Medications [...] Follow up: With: Address: When: Luis Carlos [address] [place], [facility] [address], [place] [address] Business (1) In 3 days 04/29/2023 DIAGNOSIS: Abdominal pain; Normal [facility] ED Note-Physicianon 04-26-20 ED Note-Physician [...] no infection. Ultrasound was obtained discussed with agricultural technician. There is intrauterine measuring around 5 weeks. No gross abnormality. Results are discussed the patient, she is resting comfortably and is discharged home to follow-up with COMMUNITY DEVELOPMENT OFFICER. Patient was encouraged to return to the [...] 3 days 04/29/2023 EDT [address] [place] [address]- Business (1) Additional Instructions: Patient Education Abdominal Pain During Attestation Patient seen and evaluated by the physician care team assistant. Attending physician was present in the emergency department and supervised care. This visit was performed by both the physician and an APC. I performed all aspects of the MDM as documented. This report was transcribed using voice recognition software. Every effort was made to ensure accuracy, however, inadvertently computerized painter and paperhanger apprentice mistakes may be present. Appropriate healthcare PPE [...] or in school, 07/31/2022 Employed, Work/School description: [employer]., 09/11/2022 Substance Abuse - Denies Substance Abuse, 08/08/2018 Tobacco - Denies Tobacco Use, 01/31/2023 5-9 [place] (more content not included)... Normal [facility] Comment on above: Result Comment: [...] keep your urine pale yellow. ? Take wlor-mui-lpjatuf and prescription medicines only as told by [...] Reviewed: 06/14/2021 Elsevier Patient Education ? 2022 [employer] Normal [facility] ED Patient Summaryon 023 ED Patient Summary (Inserted Image. Maryann ble to display) [address] [address] Patient Discharge Instructions Person Information Name: SUSAN BRO Age: 27 Years Arrival Date: 04/26/2023 08:50:01 Discharge Diagnosis: Abdominal pain; Primary Care Physician: THANG MILLAN CNP Provider Information Primary Provider: Laura Noel M.D. Advanced Patient Transition Specialist:Jos Ugalde PA-C The exam and treatment you received in the Emergency Department were for an urgent problem and are not intended as complete care. It is important that you follow up with a doctor, nurse practitioner, or physician?s care team assistant for ongoing care. If your symptoms [...] Instructions: With: Address: When: Luis Carlos Jung [address] [place] [address] Business (1) In 3 days 04/29/2023 In the event that this physician does not participate in your insurance network, please consult with your insurance company to find a nearby participating provider. Patient Education Materials: Abdominal Pain During A MESSAGE TO ALL PATIENTS REGARDING OPIOIDS PRESCRIPTION OPIOIDS: WHAT YOU NEED TO KNOW Prescription opioids can be used to help relieve zoaihfsm-on-zztzdr pain and are often prescribed following a [...] be struggling with addiction, tell your health property caretaker and ask for guidance or call [facility]?S National Helpline (more content not included)... Normal [facility] UA With Cult Reflexon 2022 Bilirubin Ql (U) Negative Normal Negative [facility] Comment on above: Performed By: #### 2 517570, 22482498, 5339362, 3395425, 2987214, 7187223 #### [facility] [address] [place] [address] Clarity (U) CLEAR Normal Clear [facility] Comment on above: Performed By: #### 2 747355, 73723338, 3197102, 4203281, 7523213, 1205400 #### [facility] [address] [place] [address] Color (U) YELLOW Normal Yellow [facility] Comment on above: Performed By: #### 2 211798, 38969025, 0416981, 8897979, 9357454, 9014809 #### [facility] [address] [place] [address] Crystals LM Ql (Urine sed) Present Normal [facility] Comment on above: Performed By: #### 2 607579, 38077821, 5489548, 8507975, 7963373, 7383590 #### [facility] [address] [place] [address] Epithelial cells.squamous LM.HPF (Urine sed) [#/Area] 0-2 Normal 0-2 [facility] Comment on above: Performed By: #### 2 811499, 93849801, 2710055, 6999438, 1765749, 3037101 #### [facility] [address] [place] [address] Glucose Test strip (U) [Mass/Vol] Negative Normal Negative [facility] Comment on above: Performed By: #### 2 043831, 42112022, 7694826, 0577103, 1008790, 1080680 #### [facility] [address] [place] [address] Hemoglobin Ql (U) Negative Normal Negative [facility] Comment on above: Performed By: #### 2 013491, 55695340, 3940998, 4066737, 1030183, 9504311 #### [facility] [address] [place] [address] Ketones (U) [Mass/Vol] Negative Normal Negative [facility] Comment on above: Performed By: #### 2 122940, 16200778, 4799469, 7907662, 8711057, 5781897 #### [facility] [address] [place] [address] [place].plasma/[place] .RBC (Bld) [Mass ratio] 0-3 Normal 0-3 [facility] Comment on above: Performed By: #### 2 307132, 91673646, 4924254, 3118134, 8034999, 4143250 #### [facility] [address] [place] [address] Mucus Ql (Urine sed) 2+ Normal [facility] Comment on above: Performed By: #### 2 089496, 79657318, 5942606, 6307996, 0795672, 1300868 #### [facility] [address] [place] [address] Nitrite Ql (U) Negative Normal Negative [facility] Comment on above: Performed By: #### 2 431580, 17564090, 0437945, 1033142, 8525335, 7718219 #### [facility] [address] [place] [address] pH (U) 8.5 [pH] Invalid Interpretation Code 5.0-9.0 [facility] Comment on above: Performed By: #### 2 635222, 61313529, 7617388, 3149902, 2744041, 1680607 #### [facility] [address] [place] [address] Protein (U) [Mass/Vol] Negative Normal Negative [facility] Comment on above: Performed By: #### 2 011353, 71239926, 5143735, 7345630, 7947413, 9176109 #### [facility] [address] [place] [address] Specific gravity (U) [Rel density] 1.015 Invalid Interpretation Code 1.005-1.030 [facility] Comment on above: Performed By: #### 2 663102, 72807141, 3048484, 4823871, 3356418, 5632848 #### [facility] [address] [place] [address] Type of Urine collection method Clean Catch Normal [facility] Comment on above: Performed By: #### 2 575182, 44230602, 1865389, 3412113, 1039879, 6741809 #### [facility] [address] [place] [address] Urobilinogen Qn (U) 1.0 {Rola'U}/dL Normal 0.0-1.0 [facility] Comment on above: Performed By: #### 2 021837, 93092022, 7735895, 8066698, 4730319, 2164314 #### [facility] [address] [place] [address] WBC Auto Ql (U) Negative Normal Negative [facility] Comment on above: Performed By: #### 2 638558, 77730326, 1119466, 3775150, 3632230, 9547103 #### [facility] [address] [place], [place] [address] WBC LM.HPF (Urine sed) [#/Area] 0-5 Normal 0-5 [facility] Comment on above: Performed By: #### 2 078238, 61061156, 7704126, 2224877, 8834691, 8248774 #### [facility] [address] [place] [address] URINALYSISOrdered By: An Lassiter on 04-26-2023 Bilirubin [...] Normal Negative [facility] UA Auto SS [place].plasma/[place] .RBC (Bld) [Mass ratio] 0-3 /HPF Normal [...] [facility] UA Auto SS Urobilinogen Qn (U) 1.4603921 {Rola'U}/dL Normal 0.0 - 1.0 EU/dL [facility] [...] 02/21/23 Irregular History 2 Para 1 Normal [facility] US Transvaginalon 04-26-2023 US Transvaginal Exam Date/Time: 04/26/2023 10:50 EDT Reason for Exam: Pain Report Refer to concurrent first trimester pelvic ultrasound. Ordering Provider: Jos Ugalde FINAL REPORT Dictated: 04/26/2023 11:19 am Ladarius Davis MD Signed (Electronic Signature): 04/26/2023 11:19 am Signed by: Ladarius Davis MD Transcribed by: RINKU Technologist: CASANDRA Normal [facility] CHEMISTRYOrdered By: SYSTEM SYSTEM on [...] m2 Normal >=59mL/min/ 1.73 m2 [facility] Chem S GFR/1.73 sq M.predicted among non-blacks MDRD (S/P/Bld) [Vol rate/Area] mL/min/1.73 m2 Normal >=59mL/min/ 1.73 m2 [facility] Chem S Glucose [Mass/Vol] 84 mg/dL Normal [...] Negative (01/31/23 10:14 AM) Normal [facility] Man Sero URINALYSISOrdered By: Jeanette Castle on [...] Normal Negative [facility] UA Auto SS [place].plasma/[place] .RBC (Bld) [Mass ratio] 0-3 /HPF Normal [...] [facility] UA Auto SS Urobilinogen Qn (U) 0.3594674 {Rola'U}/dL Normal 0.0 - 1.0 EU/dL [facility] [...] Normal Negative [facility] UA Auto SS [place].plasma/[place] .RBC (Bld) [Mass ratio] 0-3 /HPF Normal [...] [facility] UA Auto SS Urobilinogen Qn (U) 0.8708848 {Rola'U}/dL Normal 0.0 - 1.0 EU/dL [facility] [...] PM) Normal Negative [facility] UA Auto SS [place].plasma/[place] .RBC (Bld) [Mass ratio] 0-3 /HPF Normal 0-3/HPF [facility] UA Auto SS Nitrite Ql (U) Negative (09/12/22 8:15 PM) Normal Negative [facility] UA Auto SS pH (U) 6.0 *NA* (09/12/22 8:15 PM) Invalid Interpretation Code 5.0 - 9.0 [facility] UA Auto SS Protein (U) [Mass/Vol] Negative (09/12/22 8:15 PM) Normal Negative [facility] UA Auto SS Specific gravity (U) [Rel density] 1.010 *NA* (09/12/22 8:15 PM) Invalid Interpretation Code 1.005 - 1.030 [facility] UA Auto SS UA Spec Desc Clean Catch (09/12/22 8:15 PM) Normal [facility] UA Auto SS Urobilinogen Qn (U) 0.3038348 {Rola'U}/dL Normal 0.0 - 1.0 EU/dL [facility] Auto SS WBC Auto Ql (U) Negative (09/12/22 8:15 PM) Normal Negative [facility] UA Auto SS WBC LM.HPF (Urine sed) [#/Area] 0-5 /HPF Normal 0-5/HPF [facility] UA Auto SS CHEMISTRYOrdered By: SYSTEM SYSTEM [...] m2 Normal >=59mL/min/ 1.73 m2 [facility] Chem S GFR/1.73 sq M.predicted among non-blacks MDRD (S/P/Bld) [Vol rate/Area] mL/min/1.73 m2 Normal >=59mL/min/ 1.73 m2 [facility] Chem S Glucose [Mass/Vol] 87 mg/dL Normal 55 - 199 mg/dL FT Remisol Potassium [Moles/Vol] 3.3 mmol/L Low 3.5 - 5.3 mmol/L [facility] Remisol Sodium [Moles/Vol] 131 mmol/L Low 135 - 145 mmol/L [facility] Remisol Troponin I.cardiac [Mass/Vol] 4.70 pg/mL Low 10.10 - 27.10 pg/mL [facility] Remisol Urea nitrogen [Mass/Vol] 7 mg/dL Normal 5 - 21 mg/dL [facility] Remisol Urea nitrogen/Creatinine [Mass ratio] 10 mg/mg Normal 10 - 20 [facility] Remisol CHEMISTRYOrdered By: Temi hayden on 09-05-2022 Natriuretic peptide B (Bld) [Mass/Vol] 8 pg/mL Normal 5 - 80 pg/mL [facility] HemeManSS COAGULATIONOrdered By: Yamile Li on 09-05-2022 aPTT Coag (PPP) [Time] 27.1 s Normal 25.1 - 36.5 second(s) [facility] Auto Coag INR Coag (PPP) [Relative time] 0.9 {INR} Invalid Interpretation Code [facility] Auto Coag PT Coag (PPP) [Time] 10.3 s Normal 9.4 - 1 2.5 second(s) [facility] Auto Coag HEMATOLOGYOrdered By: SYSTEM SYSTEM on 09-05-2022 Basophils/100 WBC (Bld) 1.0 % Normal 0.0 - 2.0 % [facility] HemeAutoSS Basophils/Leukocytes Auto (Bld) [Pure # fraction] 0.1 E9/L Normal 0.0 - 0.2 E9/L [facility] HemeAutoSS Eosinophils/100 WBC (Bld) 1.4 % Normal [...] 0 mL Invalid Interpretation Code [facility] Man Sero CHEMISTRYOrdered By: SYSTEM SYSTEM on [...] Normal Negative [facility] UA Auto SS [place].plasma/[place] .RBC (Bld) [Mass ratio] 0-3 /HPF Normal [...] Desc Clean Catch (08/30/22 9:45 PM) Normal [facility] [place]A Auto SS Urobilinogen Qn (U) 0.8564731 {Rola'U}/dL Normal 0.0 - 1.0 EU/dL [facility] UA Auto SS WBC Auto Ql (U) Negative (08/30/22 9:45 PM) Normal Negative [facility] UA Auto SS WBC LM.HPF (Urine sed) [#/Area] 0-5 /HPF Normal 0-5/HPF [facility] Auto SS BLOOD BANKOrdered By: Janet Reyes on 08-22-2022 ABO/Rh Interp Positive Invalid Interpretation Code [facility] BB Subsection ABSC Gel Interp Negative (08/22/22 4:03 PM) Normal [facility] BB Subsection FMHV 0 mL Invalid Interpretation Code [facility] Man Sero CHEMISTRYOrdered By: SYSTEM SYSTEM on [...] Normal Negative [facility] UA Auto SS [place].plasma/[place] .RBC (Bld) [Mass ratio] 0-3 /HPF Normal [...] [facility] UA Auto SS Urobilinogen Qn (U) 0.2091757 {Rola'U}/dL Normal 0.0 - 1.0 EU/dL [facility] [...] Normal Negative [facility] UA Auto SS [place].plasma/[place] .RBC (Bld) [Mass ratio] 0-3 /HPF Normal [...] [facility] UA Auto SS Urobilinogen Qn (U) 0.9721250 {Rola'U}/dL Normal 0.0 - 1.0 EU/dL [facility] UA Auto SS WBC Auto Ql (U) 2+ *ABN* (08/18/22 4:08 AM) Invalid Interpretation Code Negative [facility] UA Auto SS WBC LM.HPF (Urine sed) [#/Area] 6-15 /HPF Invalid Interpretation Code 0-5/HPF [facility] UA Auto SS BLOOD BANKOrdered By: Tom Avelar on 08-13-2022 ABO/Rh Interp Positive Invalid Interpretation Code [facility] BB Subsection ABSC Gel Interp Negative (08/13/22 6:26 PM) Normal [facility] BB Subsection FMHV 0 mL Invalid Interpretation Code [facility] Man Sero CHEMISTRYOrdered By: SYSTEM SYSTEM on [...] Code Negative [facility] UA Auto SS [place].plasma/[place] .RBC (Bld) [Mass ratio] 0-3 /HPF Normal [...] [facility] UA Auto SS Urobilinogen Qn (U) 0.6573749 {Rola'U}/dL Normal 0.0 - 1.0 EU/dL [facility] [...] Normal Negative [facility] UA Auto SS [place].plasma/[place] .RBC (Bld) [Mass ratio] 0-3 /HPF Normal [...] [facility] UA Auto SS Urobilinogen Qn (U) 0.9911751 {Rola'U}/dL Normal 0.0 - 1.0 EU/dL [facility] [...] 9:20 AM) Normal [facility] Man Sero SARS-CoV+SARS-CoV-2 (COVID-19) Ag [...] Normal Negative [facility] UA Auto SS [place].plasma/[place] .RBC (Bld) [Mass ratio] 0-3 /HPF Normal [...] Interpretation Code 1.005 - 1.030 [facility] UA Auto SS UA Spec Desc Clean Catch (07/17/22 9:25 AM) Normal [facility] UA Auto SS Urobilinogen Qn (U) 0.6840219 {Rola'U}/dL Normal 0.0 - 1.0 EU/dL [facility] UA Auto SS WBC Auto Ql (U) Negative (07/17/22 9:25 AM) Normal Negative [facility] UA Auto SS WBC LM.HPF (Urine sed) [#/Area] 0-5 /HPF Normal 0-5/HPF [facility] UA Auto SS CHEMISTRYOrdered By: SYSTEM SYSTEM on 06-28-2022 Glucose 1 Hr post 50 g glucose PO [Mass/Vol] 93 mg/dL Normal 55 - 140 mg/dL [facility] Remisol HEMATOLOGYOrdered By: Keila Ring on 06-28-2022 Hematocrit (Bld) [Volume fraction] 35.4 % Normal 34.0 - 46.0 % [facility] HemeAutoSS Hemoglobin (Bld) [Mass/Vol] 12.1 g/dL Normal 12.0 - 16.0 gm/dL [facility] HemeAutoSS BLOOD BANKOrdered By: Jeanette Castle on 06-19-2022 ABO/Rh Interp Positive Invalid Interpretation Code [facility] BB Subsection ABSC Gel Interp Negative (06/19/22 12:15 AM) Normal [facility] BB Subsection FMHV 0 mL Invalid Interpretation Code [facility] Man Sero CHEMISTRYOrdered By: SYSTEM SYSTEM on [...] [Mass/Vol] <10 (06/19/22 12:15 AM) Normal <10 [facility] Man Sero Fibrinogen Coag (PPP) [Mass/Vol] 367 [...] gm/dL [facility] HemeAutoSS MCV (RBC) [Entitic vol] 92.7 fL Normal 80.0 - 100.0 fL [facility] HemeAutoSS Platelet mean volume (Bld) [Entitic vol] 8.7 fL Normal 6.4 - 10.8 fL [facility] HemeAutoSS Platelets (Bld) [#/Vol] 202.0 E9/L Normal 150.0 - 500.0 E9/L [facility] HemeAutoSS RBC (Bld) [#/Vol] 3.8 [...] Normal Negative [facility] UA Auto SS [place].plasma/[place] .RBC (Bld) [Mass ratio] 0-3 /HPF Normal [...] [facility] UA Auto SS Urobilinogen Qn (U) 0.4078834 {Rola'U}/dL Normal 0.0 - 1.0 EU/dL [facility] [...] Normal Negative [facility] UA Auto SS [place].plasma/[place] .RBC (Bld) [Mass ratio] 0-3 /HPF Normal [...] PM) Invalid Interpretation Code 1.005 - 1.030 [facility] UA Auto SS UA Spec Desc Random Urine (05/01/22 5:20 PM) Normal [facility] UA Auto SS Urobilinogen Qn (U) 1.6041010 {Rola'U}/dL Normal 0.0 - 1.0 EU/dL [facility] UA Auto SS WBC Auto Ql (U) Negative (05/01/22 5:20 PM) Normal Negative [facility] UA Auto SS WBC LM.HPF (Urine sed) [#/Area] 0-5 /HPF Normal 0-5/HPF [facility] UA Auto SS BLOOD BANKOrdered By: Shayy Medina on 04-02-2022 ABO/Rh Interp Positive Invalid Interpretation Code [facility] BB Subsection ABSC Gel Interp Negative (04/02/22 7:17 AM) Normal [facility] BB Subsection FMHV 0 mL Invalid Interpretation Code [facility] Man Sero CHEMISTRYOrdered By: SYSTEM SYSTEM on [...] m2 [facility] Chem S Globulin (S) [Mass/Vol] 3.0 g/dL [...] Normal Negative [facility] UA Auto SS [place].plasma/[place] .RBC (Bld) [Mass ratio] 0-3 /HPF Normal [...] [facility] UA Auto SS Urobilinogen Qn (U) 0.2643934 {Rola'U}/dL Normal 0.0 - 1.0 EU/dL [facility] [...] Normal Negative [facility] UA Auto SS [place].plasma/[place] .RBC (Bld) [Mass ratio] 0-3 /HPF Normal [...] [facility] UA Auto SS Urobilinogen Qn (U) 0.5672288 {Rola'U}/dL Normal 0.0 - 1.0 EU/dL [facility] [...] [facility] HemeAutoSS Reference Laboratory Testing Ordered By: Stephaine Diana on 02-15-2022 Test Code 360998 Invalid Interpretation Code [facility] SendOutsSS Test Name IG PAP CTNG HPV Invalid Interpretation Code [facility] SendOutsSS [place] 05-05-2021 CNPN Telephone (GSTCON) ----- SUSAN BRO ([id number]) 1995 F Date Time Provider Department 05/05/21 MARTHA WEBB During your visit today, we recorded the following information about you: Tucker Bales Utilization Reviewer 05/05/2021 10:37 AM Signed Patient left message [...] diligent work on this patient Tucker Bales Utilization Reviewer 05/24/2021 2:23 PM Signed patient called and left a message today stating she needs to get this figured out she has not eaten in 3 days and cant even drink water now. Patient can be reached at [phone]- please read messages below for refresher Martha Webb MD 05/24/2021 4:30 PM Signed Please advise patient to go to ER for evaluation Tucker Bales Utilization Reviewer 05/24/2021 4:35 PM Signed Had to leave a message for the patient, left the message to go to ER. Also returned the call to [facility] and spoke to Alejandra that patient needs to go to ER for evalution. Martha Webb MD 05/26/2021 10:21 AM Signed Can you find out if patient went to ER and if so which one so we can get records Tucker Mcdonald Asst 05/26/2021 3:28 PM Signed Pt did not [...] bed and continue this dose - rizatriptan (MAXALT-DIRECT MARKETING REPRESENTATIVE) 10 mg disintegrating tablet Take 1 tablet by mouth as needed for Migraine Headache (see administration instructions). AT ONSET OF HEADACHE. MAY REPEAT AFTER 2 HOURS. DO NOT EXCEED 30 MG PER DAY. Problem List As Of Date: 05/05/2021 (None) Encounter Status:Closed by TUCKER LARA on 05/06/21 [facility] [place] 04-07-2021 CNPN Telephone (GSTCON) ----- SUSAN BRO ([id number]) 1995 F Date Time Provider Department 04/07/21 MARTHA WEBB During your visit today, we recorded the following information about you: Tucker Bales Utilization Reviewer 04/07/2021 12:31 PM Signed [facility] called and they need the GES solid orde rplaced even though she has to use ensure, please sign order in this encounter Allergies As of Date: 04/07/2021 Noted Allergy Reaction PENICILLINS 03/10/2021 2 - Rash Date Reviewed: 04/01/2021 Reviewed by: Odette Agosto MD - Fully Assessed Reason for Visit: Orders [681] Visit Diagnosis:Nausea [R11.0] Order(s):NM GASTRIC EMPTYING SOLID [[id number]] Order #: [id number] FUTURE Prescriptions as of 04/07/2021 Sig: AMITRIPTYLINE 10 MG TABLET Take 1 tab at bed x 1 week, t* RIZATRIPTAN 10 MG DISINTEGRAT* Take 1 tablet by mouth as nee* Problem List As Of Date: 04/07/2021 (None) Encounter Status:Closed by MARTHA WEBB on 04/07/21 [facility] CNPAnnika 04-04-2021 CNPN Telephone (GSTCON) ----- SUSAN BRO ([id number]) 1995 F Date Time Provider Department 04/04/21 MARTHA WEBB GSTGERBER During your visit today, we recorded the following information about you: Tucker Bales Utilization Reviewer 04/04/2021 1:40 PM Signed Patient called and is still waiting for you to place the order for her GES with ensure, she cant eat the eggs and toast Martha Webb MD 04/04/2021 4:48 PM Signed Let patient know I placed the order Tucker Bales Utilization Reviewer 04/05/2021 11:41 AM [address] you place [...] Visit Diagnosis:Nausea [R11.0] Order(s):NM GASTRIC EMPTYING LIQUID [[id number]] Order #: [id number] FUTURE Prescriptions as of 04/04/2021 Sig: AMITRIPTYLINE 10 MG TABLET Take 1 tab at bed x 1 week, t* RIZATRIPTAN 10 MG DISINTEGRAT* Take 1 tablet by mouth as nee* Problem List As Of Date: 04/04/2021 (None) Encounter Status:Closed by MARTHA WEBB on 04/05/21 [facility] CNOVon 04-01-2021 CNOV Office Visit (NHMNS2 ) ----- SUSAN BRO ([id number]) 1995 F Date Time Provider Department 04/01/21 8:00 AM BERT NEGRETE MTMNS2 During your visit today, we recorded the following information about you: Pulse Blood pressure Weight Height 72/minute 111/67 70.9 kg 1.626 m Last Period 02/23/21 Rigoberto Zimmer Vt 04/01/2021 7:54 AM Addendum Please start taking [...] at least 3 months. These include all fwxb-tho-atyytwd medications, triptans, narcotics, and butalbital containing medications [...] There h (more content not included)... Normal [facility] 03-22-2021 CNPN Telephone ([employer]) ----- SUSAN BRO ([id number]) 1995 F Date Time Provider Department 03/22/21 MARTHA WEBB During your visit today, we recorded the following information about you: Tucker Bales Utilization Reviewer 03/22/2021 2:28 PM Signed Received: Today MD Eusebia Banks [facility] [place]; Tucker Bales Utilization Reviewer Let patient know esophagram was normal Next step is gastric emptying study I placed order for gastric emptying study Tucker Bales Utilization Reviewer 03/22/2021 2:28 PM Signed Pt is notified, will schedule the GES Allergies As of Date: 03/22/2021 Noted Allergy Reaction PENICILLINS 03/10/2021 2 - Rash Date Reviewed: 03/10/2021 Reviewed by: Martha Webb MD - Fully Assessed Reason for Visit: Results [95] Problem List As Of Date: 03/22/2021 (None) Encounter Status:Closed by DANII ASPHALT PLANT OPERATORTUCKER FOURNIER on 03/22/21 Normal [facility] XR ESOPHAGRAMon 03-17-2021 XR ESOPHAGRAM [...] symptoms. Other Findings: None. IMPRESSION: Normal esophagram. Accounts Payable Administrator: LUCITA Transcribe Date/Time: Mar 17 2021 11:15A Dictated by : CRISTÓBAL SALINAS DO This examination was interpreted and the report reviewed and electronically signed by: CRISTÓBAL SALINAS DO on Mar 17 2021 11:18AM EST [id number] [facility] CNOVon 03-10-2021 CNOV Office Visit (GSTCON ) ----- SUSAN BRO ([id number]) 1995 F Date Time Provider Department 03/10/21 11:15 AM MARTHA WEBB During your visit today, we recorded the following information about you: Pulse Blood pressure Weight Height 69/minute 108/76 73 kg 1.626 m Martha Webb MD 03/10/2021 12:03 PM Signed This note was created using [employer]. Subjective Susan Bro is a 25 year [...] COMMENT: Un (more content not included)... Normal [facility] [place] 03-10-2021 CNPN Telephone (GASTLB) ----- SUSAN BRO ([id number]) 1995 F Date Time Provider Department 03/10/21 MARTHA WEBB During your visit today, we recorded the following information about you: Don Trevino Utilization Reviewer 03/10/2021 1:24 PM Signed Failed fax in [employer] from 03/10/2021 regarding this patient from Dr. Webb. Faxed manually to [phone]. Scanned fax confirmation/documents into [employer]. Don Trevino Utilization Reviewer Allergies As of Date: 03/10/2021 Noted Allergy Reaction PENICILLINS 03/10/2021 2 - Rash Date Reviewed: 03/10/2021 Reviewed by: Martha Webb MD - Fully Assessed Reason for Visit: Electronic Communication [890] Problem List As Of Date: 03/10/2021 (None) Encounter Status:Closed by DON DIAZ on 03/10/21 Normal [facility] CBC WITH AUTO DIFFERENTIALon 10-14-2020 Basophils (Bld) [#/Vol] 0.06 10*3/uL [facility] Basophils/100 WBC (Bld) 0.6 % [facility] Eosinophils (Bld) [#/Vol] 0.36 10*3/uL [facility] Eosinophils/100 WBC (Bld) 3.4 % [facility] Erythrocyte distribution width (RBC) [Entitic vol] 13.2 % 11.6 - 14.8 % [facility] Hematocrit (Bld) [Volume fraction] 43.2 % 36 - 46 % [facility] Hemoglobin (Bld) [Mass/Vol] 14.1 g/dL 12 - 16 g/dL [facility] Immature granulocytes (Bld) [#/Vol] 0.03 10*3/uL [facility] Immature granulocytes/100 WBC (Bld) 0.30 % [facility] Comment on above: The IG parameter is the percentage of metamyelocytes, myelocytes and promyelocytes. An immature granulocyte count (IG) of 1% or more suggests the possibility of infection, an IG count of 3% is very likely related to an infection. Interpretation and review of laboratory results Abnormal [facility] Lymphocytes (Bld) [#/Vol] 1.47 10*3/uL [facility] Lymphocytes/100 WBC (Bld) 13.8 % [facility] MCH (RBC) [Entitic mass] 29.6 pg 26 - 34 pg [facility] MCHC (RBC) [Mass/Vol] 32.6 g/dL 31 - 3 7 g/dL [facility] MCV (RBC) [Entitic vol] 90.6 fL 80 - 100 fL [facility] Monocytes (Bld) [#/Vol] 0.58 10*3/uL [facility] Monocytes/100 WBC (Bld) 5.5 % [facility] Neutrophils (Bld) [#/Vol] 8.12 10*3/uL High [facility] Neutrophils/100 WBC (Bld) 76.4 % [facility] Nucleated RBC (Bld) [#/Vol] 0.00 10*3/uL [facility] Nucleated RBC/100 WBC (Bld) [Ratio] 0.0 % [facility] Platelet mean volume (Bld) [Entitic vol] 10.3 fL 9.4 - 12.4 fL [facility] Platelets (Bld) [#/Vol] 251 10*3/uL [facility] RBC (Bld) [#/Vol] 4.77 10*6/uL [facility] WBC (Bld) [#/Vol] 10.62 10*3/uL [facility] COVID-19/INFLUENZA A,B MOLEC [facility] 10-14-2020 COVID-19/INFLUENZA A,B MOLECULAR SARS-COV-2 (SANA): Not Detected INFLUENZA A (SANA): Not Detected INFLUENZA B (SANA): Not Detected Normal Not Detected [facility] Comment on above: Order Comment: This test [...] at the following links: For Healthcare Providers: https://www.fda.gov/media/284790/download For Patients: https://www.fda.gov/media/886598/download Performed By: #### L [id number] #### [facility] [address] [facility] [place], [place] [address] Raffy Yadav M.D. [id number] COVID-19/Influenza A,B Molec ularon 10-14-2020 Influenza A Not Detected Not Detected [facility] Influenza B Not Detected Not Detected [facility] Interpretation and review of laboratory results Normal [facility] SARS-CoV-2 Not Detected Not Detected [facility] This test was perfor med under [...] the following links: For Healthcare Providers: https://www.fda.gov/media /789087/download For Patients: https://www.fda.gov/media /117982/download [facility] CT HEAD OR BRAIN WITHOUT CON [...] SunOct 14, 2020 11:28:15 AM EST Normal [facility] Comment on above: Order Comment: Injur y/Trauma [...] orbits and paranasal sinuses are grossly unremarkable. [facility] 1. No acute intracra nial hemorrhage, focal edema or mass effect. Workstation ID: [id number] [facility] In [facility] ji Speechq - 10/14/2020 [...] edema or mass effect. Workstation ID: [id number] [facility] Chem 7on 10-14-2020 Anion gap [Moles/Vol] 8 mmol/L Low 10 - 2 0 mmol/L [facility] Chloride [Moles/Vol] 112 mmol/L High 98 - 10 8 mmol/L [facility] Creatinine [Mass/Vol] 0.78 mg/dL 0.40 - 1.10 [facility] GFR/1.73 sq M predicted among non-blacks MDRD (S/P/Bld) [Vol rate/Area] The eGFR should be used for monitoring renal function only and not for medication dosing. [facility] GFR/1.73 sq M.predicted CKD-EPI (S/P/Bld) [Vol rate/Area] 105 >=60 mL/min/1.73 m2 [facility] Glucose [Mass/Vol] 78 mg/dL 65 - 99 mg/dL [facility] HCO3 [Moles/Vol] 24 mmol/L 21 - 32 mmol/L [facility] Interpretation and review of laboratory results Abnormal [facility] Potassium [Moles/Vol] 4.5 mmol/L 3.5 - 5.1 mmol/L [facility] Comment on above: moderate hemolysis, result may be falsely increased. Sodium [Moles/Vol] 139 mmol/L 135 - 145 mmol/L [facility] Urea nitrogen [Mass/Vol] 5 mg/dL Low 8 - 25 mg/dL [facility] Urea nitrogen/Creatinine [Mass ratio] 6.4 mg/mg Low [facility] Otheron 10-14-2020 Extra Tube Hold for add-ons. [facility] Comment on above: Auto resulted. URINALYSISon 10-14-2020 Bacteria Auto Ql (U) None Seen None Se en /hpf [facility] Bilirubin Ql (U) Negative Negative [facility] Clarity Refractometry automated (U) Cloudy Abnormal Clear [facility] Color (U) Yellow Colorless, Yellow [facility] Epithelial cells.squamous Auto (Urine sed) [#/Area] 18 High [facility] Glucose Auto test strip (U) [Mass/Vol] Negative Negative mg/dL [facility] Hemoglobin Auto test strip Ql (U) Negative Negative [facility] Interpretation and review of laboratory results Abnormal [facility] Ketones (U) [Mass/Vol] Negative Negat juju mg/dL [facility] Leukocyte esterase Auto test strip Ql (U) Trace Abnormal Negative [facility] h Mucus Auto (Urine sed) [#/Area] Many Abnormal None Seen, Rare /lpf [facility] Nitrite Auto test strip Ql (U) Negative Negative [facility] pH (U) 8.0 [pH] High [facility] Protein (U) [Mass/Vol] 30 Abnormal Negat juju mg/dL [facility] Comment on above: False positive resul ts may occur in urines with large amounts of hemoglobin, pH greater than 8.0, contrast medium, or disinfectants including ammonium compounds. RBC Auto (Urine sed) [#/Area] 3 [facility] Specific gravity (U) [Rel density] 1.028 High [facility] Urobilinogen (U) [Mass/Vol] 2.0 mg/dL Abnormal <2.0 [facility] WBC Auto (Urine sed) [#/Area] 3 [facility] Microscopic examinat ion is performed on all urinalysis samples and only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 Guillermo [facility] 01-31-2023 11:03-0400 Mean blood pressure 81 mm[Hg] Kristian Eagle [facility] 01-31-2023 11:03-0400 Respiratory rate 12 /min Kristian Eagle [facility] 01-31-2023 11:03-0400 SaO2% (BldA) [Mass fraction] 100 % Kristian uGillermo [facility] 01-31-2023 11:03-0400 Systolic blood pressure 98 mm[Hg] Kristian Eagle [facility] 01-31-2023 10:29-0400 Diastolic blood pressure 77 mm[Hg] Kristian Guillermo [facility] 01-31-2023 10:29-0400 Heart rate 87 /min Kristian Guillermo [facility] 01-31-2023 10:29-0400 Respiratory rate 21 /min Kristian Eagle [facility] 01-31-2023 10:29-0400 SaO2% (BldA) [Mass fraction] 99 % Kristianmark Guillermo [facility] 01-31-2023 10:29-0400 Systolic blood pressure 101 mm[Hg] Kristian Guillermo [facility] 01-31-2023 09:51-0400 gluc 100 mg/dL Kristian Guillermo [facility] 01-31-2023 09:51-0400 gluc Kristianmark Guillermo [facility] 01-31-2023 09:43-0400 Body temperature 98.42 [degF] Kristian Guillermo [facility] 01-31-2023 09:43-0400 Heart rate 75 /min Kristian Guillermo [facility] 01-31-2023 09:43-0400 Respiratory rate 18 /min Kristian Guillermo [facility] 09-22-2022 15:14-0500 Body temperature 98.24 [degF] Luis Carlos Jung [facility] 09-22-2022 15:14-0500 Diastolic blood pressure 84 mm[Hg] Luis Carlos Jung [facility] 09-22-2022 15:14-0500 Heart rate 76 /min Luis Carlos Jung [facility] 09-22-2022 15:14-0500 Mean blood pressure 97 mm[Hg] Luis Carlos Jung [facility] 09-22-2022 15:14-0500 Respiratory rate 20 /min Luis Carlos Jung [facility] 09-22-2022 15:14-0500 Systolic blood pressure 124 mm[Hg] Luis Carlos Jung [facility] 09-22-2022 15:00-0500 Blood Pressure Location Luis Carlos Jung [facility] 09-20-2022 17:15-0500 Hourly Rounding Luis Carlos Jung [facility] Comment on above: Result Comment: discharge instructions g iven with verbal understanding. monitors off; pt up to dress. 09-20-2022 16:15-0500 Diastolic blood pressure 77 mm[Hg] Luis Carlos Jung [facility] 09-20-2022 16:15-0500 Heart rate 78 /min Luis Carlos Jung [facility] 09-20-2022 16:15-0500 Mean blood pressure 92 mm[Hg] Luis Carlos Jung [facility] 09-20-2022 16:15-0500 Respiratory rate 18 /min Luis Carlos Jung [facility] 09-20-2022 16:15-0500 Systolic blood pressure 121 mm[Hg] Luis Carlos Jung [facility] 09-20-2022 13:16-0500 Diastolic blood pressure 80 mm[Hg] Luis Carlos Jung [facility] 09-20-2022 13:16-0500 Heart rate 80 /min Luis Carlos Jung [facility] 09-20-2022 13:16-0500 Mean blood pressure 93 mm[Hg] Luis Carlos Jung [facility] 09-20-2022 13:16-0500 Respiratory rate 18 /min Luis Carlos Jung [facility] 09-20-2022 13:16-0500 Systolic blood pressure 120 mm[Hg] Luis Carlos Jung [facility] 09-20-2022 09:48-0500 Diastolic blood pressure 79 mm[Hg] Luis Carlos Jung [facility] 09-20-2022 09:48-0500 Heart rate 94 /min Luis Carlos Jung [facility] 09-20-2022 09:48-0500 Hourly Rounding Luis Carlos Jung [facility] 09-20-2022 09:48-0500 Mean blood pressure 97 mm[Hg] Luis Carlos Jung [facility] 09-20-2022 09:48-0500 Respiratory rate 18 /min Luis Carlos Jung [facility] 09-20-2022 09:48-0500 Systolic blood pressure 132 mm[Hg] Luis Carlos Jung [facility] 09-19-2022 03:38-0500 Hourly Rounding Jj KARASIK [facility] Comment on above: Result Comment: pt walks off unit with a steady gait 09-19-2022 02:45-0500 Blood Pressure Location Jj KARASIK [facility] 09-19-2022 02:45-0500 Body temperature 98.42 [degF] Jj KARASIK [facility] 09-19-2022 02:45-0500 Diastolic blood pressure 77 mm[Hg] Jj KARASIK [facility] 09-19-2022 02:45-0500 Heart rate 62 /min Jj KARASIK [facility] 09-19-2022 02:45-0500 Hourly Rounding Jj KARASIK [facility] Comment on above: Result Comment: questions answered, guillaume monk 09-19-2022 02:45-0500 Mean blood pressure 91 mm[Hg] Jj KARASIK [facility] 09-19-2022 02:45-0500 Respiratory rate 18 /min Jj KARASIK [facility] 09-19-2022 02:45-0500 Systolic blood pressure 120 mm[Hg] Jj KARASIK [facility] 09-19-2022 01:45-0500 Blood Pressure Location Jj KARASIK [facility] 09-19-2022 01:45-0500 Body temperature 98.06 [degF] Jj KARASIK [facility] 09-19-2022 01:45-0500 Diastolic blood pressure 84 mm[Hg] Jj KARASIK [facility] 09-19-2022 01:45-0500 Heart rate 70 /min Jj KARASIK [facility] 09-19-2022 01:45-0500 Hourly Rounding Jj MIKE [facility] Comment on above: Result Comment: pt brought to unit via w heelchair. Changes into gown independently and provides urine sample. Pt demonstrates ability to use call light. Needs met, call light in reach 09-19-2022 01:45-0500 Mean blood pressure 96 mm[Hg] Jj MIKE [facility] 09-19-2022 01:45-0500 Respiratory rate 18 /min Jj MIKE [facility] 09-19-2022 01:45-0500 Systolic blood pressure 120 mm[Hg] Jj MIKE [facility] 09-14-2022 12:15-0500 Hourly Rounding Luis Carlos Jung [facility] Comment on above: Result Comment: reviewed plan for disch and use of meds to treat head ache 09-14-2022 11:45-0500 Hourly Rounding Luis Carlos Jung [facility] Comment on above: Result Comment: STATES SHE FEELS MUCH BE TTER AND WANTS TO GO HOME 09-14-2022 11:15-0500 Diastolic blood pressure 73 mm[Hg] Luis Carlos Jung [facility] 09-14-2022 11:15-0500 Heart rate 74 /min Luis Carlos Jung [facility] 09-14-2022 11:15-0500 Hourly Rounding Luis Carlos Jung [facility] 09-14-2022 11:15-0500 Mean blood pressure 88 mm[Hg] Luis Carlos Jung [facility] 09-14-2022 11:15-0500 Systolic blood pressure 119 mm[Hg] Luis Carlos Jung [facility] 09-14-2022 11:00-0500 Diastolic blood pressure 66 mm[Hg] Luis Carlos Jung [facility] 09-14-2022 11:00-0500 Heart rate 67 /min Luis Carlos Jung [facility] 09-14-2022 11:00-0500 Mean blood pressure 84 mm[Hg] Luis Carlos Jung [facility] 09-14-2022 11:00-0500 Systolic blood pressure 120 mm[Hg] Luis Carlos Jung [facility] 09-14-2022 10:45-0500 Diastolic blood pressure 72 mm[Hg] Luis Carlos Jung [facility] 09-14-2022 10:45-0500 Heart rate 75 /min Luis Carlos Jung [facility] 09-14-2022 10:45-0500 Mean blood pressure 90 mm[Hg] Luis Carlos Jung [facility] 09-14-2022 10:45-0500 Systolic blood pressure 125 mm[Hg] Luis Carlos Jung [facility] 09-14-2022 09:30-0500 Blood Pressure Location Luis Carlos Jung [facility] 09-14-2022 09:30-0500 Body temperature 98.06 [degF] Luis Carlos Jung [facility] 09-14-2022 09:30-0500 Respiratory rate 16 /min Luis Carlos Jung [facility] 09-12-2022 20:45-0500 Hourly Rounding Luis Carlos Jung [facility] Comment on above: Result Comment: dischage instructions gi merly, pt verbalizes understanding. pt ambulates off unit with steady gait 09-12-2022 20:00-0500 Blood Pressure Location Luis Carlos Jung [facility] 09-12-2022 20:00-0500 Diastolic blood pressure 79 mm[Hg] Luis Carlos Jung [facility] 09-12-2022 20:00-0500 Heart rate 84 /min Luis Carlos Jung [facility] 09-12-2022 20:00-0500 Hourly Rounding Luis Carlos Jung [facility] 09-12-2022 20:00-0500 Mean blood pressure 95 mm[Hg] Luis Carlos Jung [facility] 09-12-2022 20:00-0500 Respiratory rate 18 /min Luis Carlos Jung [facility] 09-12-2022 20:00-0500 Systolic blood pressure 128 mm[Hg] Luis Carlos Jung [facility] 09-12-2022 19:45-0500 [facility] Comment on above: Result Comment: [facility] Changes into gown independently, oriented to room, demonstrates ability to use call light, call light in reach 09-08-2022 08:32-0500 Blood Pressure Location Luis Carlos Jung [facility] 09-08-2022 08:32-0500 Body temperature 97.34 [degF] Luis Carlos Jung [facility] 09-08-2022 08:32-0500 Diastolic blood pressure 74 mm[Hg] Luis Carlos Jung [facility] 09-08-2022 08:32-0500 Heart rate 90 /min Luis Carlos Jung [facility] 09-08-2022 08:32-0500 Hourly Rounding Luis Carlos Jung [facility] Comment on above: Result Comment: PLAN OF CARE DISCUSSED 09-08-2022 08:32-0500 Mean blood pressure 90 mm[Hg] Luis Carlos Jung [facility] 09-08-2022 08:32-0500 Respiratory rate 18 /min Luis Carlos Jung [facility] 09-08-2022 08:32-0500 Systolic blood pressure 123 mm[Hg] Luis Carlos Jung [facility] 09-05-2022 22:00-0500 Body temperature 98.6 [degF] Kaylinn Dokken [facility] 09-05-2022 22:00-0500 Diastolic blood pressure 73 mm[Hg] Kaylinn Dokken [facility] 09-05-2022 22:00-0500 Mean blood pressure 85 mm[Hg] Kaylinn Dokken [facility] 09-05-2022 22:00-0500 Respiratory rate 27 /min Kaylinn Dokken [facility] 09-05-2022 22:00-0500 SaO2% (BldA) [Mass fraction] 100 % Kaylinn Dokken [facility] 09-05-2022 22:00-0500 Systolic blood pressure 108 mm[Hg] Kaylinn Dokken [facility] 09-05-2022 21:01-0500 Heart rate 78 /min Kaylinn Dokken [facility] 09-05-2022 21:01-0500 Respiratory rate 20 /min Kaylinn Dokken [facility] 09-05-2022 21:01-0500 SaO2% (BldA) [Mass fraction] 94 % Kaylinn Dokken [facility] 09-05-2022 21:00-0500 Diastolic blood pressure 77 mm[Hg] Kaylinn Dokken [facility] 09-05-2022 21:00-0500 Mean blood pressure 87 mm[Hg] Kaylinn Dokken [facility] 09-05-2022 20:10-0500 Body temperature 97.7 [degF] Kaylinn Dokken [facility] 09-05-2022 20:10-0500 Diastolic blood pressure 81 mm[Hg] Kaylinn Dokken [facility] 09-05-2022 20:10-0500 Heart rate 83 /min Carrolylinn Dokken [facility] 09-05-2022 20:10-0500 Respiratory rate 22 /min Carrolylinn Dokken [facility] 09-05-2022 20:10-0500 SaO2% (BldA) [Mass fraction] 99 % Carrolylinn Dokken [facility] 09-05-2022 20:10-0500 Systolic blood pressure 135 mm[Hg] Carrolylinn Dokken [facility] 08-31-2022 01:03-0500 Hourly Rounding Luis Carlos Jung [facility] Comment on above: Result Comment: pt ambulates off unit at this time w/ steady gait. 08-31-2022 00:58-0500 Hourly Rounding Luis Carlos Jung [facility] Comment on above: Result Comment: this nurse gives dischar ge instructions to pt at this time. pt verbalizes understanding of all education given. denies further needs. will continue to monitor. 08-31-2022 00:50-0500 Blood Pressure Location Luis Carlos Jung [facility] 08-31-2022 00:50-0500 Diastolic blood pressure 69 mm[Hg] Luis Carlos Jung [facility] 08-31-2022 00:50-0500 Heart rate 67 /min Luis Carlos Jung [facility] 08-31-2022 00:50-0500 Hourly Rounding Luis Carlos Jung [facility] Comment on above: Result Comment: pt up to bathroom at thi s time to void and change into clothes. walks w/ steady gait. 08-31-2022 00:50-0500 Mean blood pressure 83 mm[Hg] Luis Carlos Jung [facility] 08-31-2022 00:50-0500 Respiratory rate 18 /min Luis Carlos Jung [facility] 08-31-2022 00:50-0500 Systolic blood pressure 112 mm[Hg] Luis Carlos Jung [facility] 08-30-2022 21:52-0500 Body temperature 98.06 [degF] Luis Carlos Jung [facility] 08-30-2022 21:52-0500 Diastolic blood pressure 74 mm[Hg] Luis Carlos Jung [facility] 08-30-2022 21:52-0500 Heart rate 82 /min Luis Carlos Jung [facility] 08-30-2022 21:52-0500 Mean blood pressure 90 mm[Hg] Luis Carlos Jung [facility] 08-30-2022 21:52-0500 Respiratory rate 18 /min Luis Carlos Jung [facility] 08-30-2022 21:52-0500 Systolic blood pressure 123 mm[Hg] Luis Carlos Jung [facility] 08-30-2022 21:45-0500 Blood Pressure Location Luis Carlos Jung [facility] 08-22-2022 17:19-0500 Hourly Rounding Luis Carlos Jung [facility] Comment on above: Result Comment: MONITORS OFF; PT UP TO D RESS. DISCHARGE INSTRUCTIONS GIVEN WITH VERBAL UNDERSTANDING. 08-22-2022 15:14-0500 Diastolic blood pressure 71 mm[Hg] Luis Carlos Jung [facility] 08-22-2022 15:14-0500 Heart rate 87 /min Luis Carlos Jung [facility] 08-22-2022 15:14-0500 Hourly Rounding Luis Carlos Jung [facility] 08-22-2022 15:14-0500 Mean blood pressure 86 mm[Hg] Luis Carlos Jung [facility] 08-22-2022 15:14-0500 Respiratory rate 18 /min Luis Carlos Jung [facility] 08-22-2022 15:14-0500 Systolic blood pressure 115 mm[Hg] Luis Carlos Jung [facility] 08-18-2022 12:28-0400 Hourly Rounding Luis Carlos Jung [facility] Comment on above: Result Comment: pt verbalizes understand ing of discharge instructions. pt states she has an appointment sunday with dr jung. pt ambulated out of unit 08-18-2022 10:28-0400 Hourly Rounding Luis Carlos Jung [facility] Comment on above: Result Comment: pt c/o left lower abd pa in. states it is intermittent and sharp. encouraged pt to get up and empty bladder. pt states pain is still 04/23. dr jung on unit & at bedside 08-18-2022 09:09-0400 Hourly Rounding Luis Carlos Jung [facility] Comment on above: Result Comment: pt sitting up in bed wit h breakfast tray, visitor at bedside 08-18-2022 07:15-0400 Blood Pressure Location Luis Carlos Jung [facility] 08-18-2022 07:15-0400 Diastolic blood pressure 56 mm[Hg] Luis Carlos Jung [facility] 08-18-2022 07:15-0400 Heart rate 69 /min Luis Carlos Fabiana [facility] 08-18-2022 07:15-0400 Mean blood pressure 74 mm[Hg] Luis Carlos Jung [facility] 08-18-2022 07:15-0400 Respiratory rate 16 /min Luis Carlos Jung [facility] 08-18-2022 07:15-0400 Systolic blood pressure 111 mm[Hg] Luis Carlos Jung [facility] 08-18-2022 05:58-0400 Blood Pressure Location Luis Carlos Jung [facility] 08-18-2022 05:58-0400 Diastolic blood pressure 59 mm[Hg] Luis Carlos Jung [facility] 08-18-2022 05:58-0400 Heart rate 67 /min Luis Carlos Jung [facility] 08-18-2022 05:58-0400 Mean blood pressure 77 mm[Hg] Luis Carlos Fabiana [facility] 08-18-2022 05:58-0400 Respiratory rate 16 /min Luis Carlos Jung [facility] 08-18-2022 05:58-0400 Systolic blood pressure 113 mm[Hg] Luis Carlos Jung [facility] 08-18-2022 04:06-0400 Blood Pressure Location Luis Carlos Jung [facility] 08-18-2022 04:06-0400 Body temperature 98.06 [degF] Luis Carlos Jung [facility] 08-18-2022 04:06-0400 Diastolic blood pressure 65 mm[Hg] Luis Carlos Jung [facility] 08-18-2022 04:06-0400 Heart rate 70 /min Luis Carlos Jung [facility] 08-18-2022 04:06-0400 Mean blood pressure 79 mm[Hg] Luis Carlos Jung [facility] 08-18-2022 04:06-0400 Respiratory rate 16 /min Luis Carlos Jung [facility] 08-18-2022 04:06-0400 Systolic blood pressure 107 mm[Hg] Luis Carlos Jung [facility] 08-13-2022 20:04-0400 Hourly Rounding Luis Carlos Jung [facility] Comment on above: Result Comment: Patient discharged off u nit. Discharge instructions were reviewed. Pt walks off unit without any notable signs or symtpoms of distress. 08-13-2022 19:45-0400 Hourly Rounding Luis Carlos Jung [facility] 08-13-2022 19:45-0400 Hourly Rounding Luis Carlos Jung [facility] Comment on above: Result Comment: Patient sitting in bed. BPP results reviewed with patient. Pt denied any additional questions. Call light within reach. 08-13-2022 18:12-0400 Heart rate 88 /min Luis Carlos Jung [facility] 08-13-2022 18:12-0400 Nursing Progress Note Reason Other: Pt updated on orders received from . payalzes understanding Luis Carlos Jung [facility] 08-13-2022 18:12-0400 SaO2% (BldA) [Mass fraction] 99 % Luis Carlos Jung [facility] 08-13-2022 17:33-0400 Body temperature 97.88 [degF] Luis Carlos Jung [facility] 08-13-2022 17:33-0400 Diastolic blood pressure 72 mm[Hg] Luis Carlos Jung [facility] 08-13-2022 17:33-0400 Mean blood pressure 88 mm[Hg] Luis Carlos Jung [facility] 08-13-2022 17:33-0400 Respiratory rate 18 /min Luis Carlos Jung [facility] 08-13-2022 17:33-0400 Systolic blood pressure 121 mm[Hg] Luis Carlos Jung [facility] 07-26-2022 10:22-0400 Hourly Rounding Luis Carlos Jung [facility] Comment on above: Result Comment: discharge instructions p rovided and pt signs discharge consent with RN witness. pt preparing for discharge, belly band placed on pt. RN offers wheelchair exit for discharge and pt declines and wants to walk down on own. 07-26-2022 10:22-0400 Promise to Return Luis Carlos Jung [facility] 07-26-2022 10:00-0400 Hourly Rounding Luis Carlos Jung [facility] 07-26-2022 10:00-0400 Promise to Return Luis Carlos Jung [facility] 07-26-2022 09:15-0400 Blood Pressure Location Luis Carlos Jung [facility] 07-26-2022 09:15-0400 Body temperature 97.7 [degF] Luis Carlos Montesinosten [facility] 07-26-2022 09:15-0400 Diastolic blood pressure 62 mm[Hg] Luis Carlos Montesinosten [facility] 07-26-2022 09:15-0400 Heart rate 70 /min Luis Carlos Montesinosten [facility] 07-26-2022 09:15-0400 Hourly Rounding Luis Carlos Jung [facility] 07-26-2022 09:15-0400 Mean blood pressure 74 mm[Hg] Luis Carlos Montesinosten [facility] 07-26-2022 09:15-0400 Respiratory rate 18 /min Luis Carlos Jung [facility] 07-26-2022 09:15-0400 Systolic blood pressure 97 mm[Hg] Luis Carlos Jung [facility] 07-26-2022 09:00-0400 Promise to Return Luis Carlos Jung [facility] 07-26-2022 08:14-0400 Body temperature 98.06 [degF] Luis Carlos Montesinosten [facility] 07-26-2022 08:14-0400 Diastolic blood pressure 66 mm[Hg] Luis Carlos Fabiana [facility] 07-26-2022 08:14-0400 Heart rate 81 /min Luis Carlos Montesinosten [facility] 07-26-2022 08:14-0400 Mean blood pressure 80 mm[Hg] Luis Carlos Jung [facility] 07-26-2022 08:14-0400 Respiratory rate 18 /min Luis Carlos Jung [facility] 07-26-2022 08:14-0400 Systolic blood pressure 109 mm[Hg] Luis Carlos Jung [facility] 07-17-2022 09:07-0400 Body temperature 97.88 [degF] Ko Dumas [facility] 07-17-2022 09:07-0400 Diastolic blood pressure 74 mm[Hg] Ko Dumas [facility] 07-17-2022 09:07-0400 Heart rate 85 /min Ko Dumas [facility] 07-17-2022 09:07-0400 Respiratory rate 16 /min Ko Dumas [facility] 07-17-2022 09:07-0400 SaO2% (BldA) [Mass fraction] 100 % Ko Dumas [facility] 07-17-2022 09:07-0400 Systolic blood pressure 117 mm[Hg] Ko Dumas [facility] 06-26-2022 21:38-0400 Blood Pressure Location Luis Carlos Jung [facility] 06-26-2022 21:38-0400 Diastolic blood pressure 61 mm[Hg] Luis Carlos Jung [facility] 06-26-2022 21:38-0400 Heart rate 83 /min Luis Carlos Jung [facility] 06-26-2022 21:38-0400 Hourly Rounding Luis Carlos Jung [facility] Comment on above: Result Comment: discharged ambulatory to pov 06-26-2022 21:38-0400 Mean blood pressure 75 mm[Hg] Luis Carlos Montesinosten [facility] 06-26-2022 21:38-0400 Respiratory rate 16 /min Luis Carlos Jung [facility] 06-26-2022 21:38-0400 Systolic blood pressure 102 mm[Hg] Luis Carlos Montesinosten [facility] 06-26-2022 21:15-0400 Blood Pressure Location Luis Carlos Jung [facility] 06-26-2022 21:15-0400 Diastolic blood pressure 64 mm[Hg] Luis Carlos Montesinosten [facility] 06-26-2022 21:15-0400 Heart rate 74 /min Luis Carlos Jung [facility] 06-26-2022 21:15-0400 Hourly Rounding Luis Carlos Jung [facility] 06-26-2022 21:15-0400 Mean blood pressure 78 mm[Hg] Luis Carlos Montesinosten [facility] 06-26-2022 21:15-0400 Respiratory rate 16 /min Luis Carlos Jung [facility] 06-26-2022 21:15-0400 Systolic blood pressure 106 mm[Hg] Luis Carlos Montesinosten [facility] 06-26-2022 21:05-0400 Body temperature 97.88 [degF] Luis Carlos Montesinosten [facility] 06-26-2022 21:05-0400 Respiratory rate 18 /min Luis Carlos Jung [facility] 06-26-2022 21:00-0400 Hourly Rounding Luis Carlos Jung [facility] Comment on above: Result Comment: ice water given 06-19-2022 01:30-0400 Hourly Rounding Luis Carlos Jung [facility] Comment on above: Result Comment: updated on plan of care after speaking to dr jung. verb understanding and all d/c instructions provided. denies further needs/concerns. ambulates off unit without any further questions. 06-19-2022 01:00-0400 Hourly Rounding Luis Carlos Jung [facility] Comment on above: Result Comment: rests in bed on phone. d enies any needs. denies any pain at this time or any pain or cramping since arrival. call light within reach 06-19-2022 00:15-0400 Hourly Rounding Luis Carlos Jung [facility] 06-18-2022 23:54-0400 Body temperature 97.88 [degF] Luis Carlos Jung [facility] 06-18-2022 23:54-0400 Diastolic blood pressure 65 mm[Hg] Luis Carlos Jung [facility] 06-18-2022 23:54-0400 Heart rate 76 /min Luis Carlos Jung [facility] 06-18-2022 23:54-0400 Mean blood pressure 81 mm[Hg] Luis Carlos Jung [facility] 06-18-2022 23:54-0400 Respiratory rate 18 /min Luis Carlos Jung [facility] 06-18-2022 23:54-0400 Systolic blood pressure 112 mm[Hg] Luis Carlos Jung [facility] 06-18-2022 23:45-0400 Blood Pressure Location Luis Carlos Jung [facility] 05-01-2022 17:45-0400 Hourly Rounding Luis Carlos Jung [facility] Comment on above: Result Comment: reviewed disch inst and meds to take states understanding 05-01-2022 17:30-0400 Hourly Rounding Luis Carlos Jung [facility] 05-01-2022 17:23-0400 Body temperature 98.06 [degF] Luis Carlos Jung [facility] 05-01-2022 17:23-0400 Diastolic blood pressure 57 mm[Hg] Luis Carlos Jung [facility] 05-01-2022 17:23-0400 Heart rate 83 /min Luis Carlos Jung [facility] 05-01-2022 17:23-0400 Mean blood pressure 71 mm[Hg] Luis Carlos Jung [facility] 05-01-2022 17:23-0400 Respiratory rate 16 /min Luis Carlos Jung [facility] 05-01-2022 17:23-0400 Systolic blood pressure 99 mm[Hg] Luis Carlos Jung [facility] 05-01-2022 17:15-0400 Blood Pressure Location Luis Carlos Jung [facility] 05-01-2022 17:15-0400 Hourly Rounding Luis Carlos Jung [facility] 04-02-2022 13:30-0400 Hourly Rounding Luis Carlos Jung [facility] Comment on above: Result Comment: pt given discharge instr uctions at this time to follow up with fabiana sunday or states understanding to call office tomorrow for appointment 04-02-2022 12:30-0400 Hourly Rounding Luis Carlos Jung [facility] Comment on above: Result Comment: pt returns to bed from [place] at this time denies discomfort at this time 04-02-2022 11:30-0400 Hourly Rounding Luis Carlos Jung [facility] Comment on above: Result Comment: pt sitting in bed at thi s time denies needs or discomfort 04-02-2022 06:28-0400 Body temperature 99.68 [degF] Luis Carlos Jung [facility] 04-02-2022 06:28-0400 Diastolic blood pressure 68 mm[Hg] Luis Carlos Jung [facility] 04-02-2022 06:28-0400 Heart rate 89 /min Luis Carlos Jung [facility] 04-02-2022 06:28-0400 Heart rate 86 /min Luis Carlos Jung [facility] 04-02-2022 06:28-0400 Mean blood pressure 83 mm[Hg] Luis Carlos Jung [facility] 04-02-2022 06:28-0400 Respiratory rate 20 /min Luis Carlos Jung [facility] 04-02-2022 06:28-0400 SaO2% (BldA) [Mass fraction] 98 % Luis Carlos Jung [facility] 04-02-2022 06:28-0400 Systolic blood pressure 114 mm[Hg] Luis Carlos Jung [facility] 03-23-2022 21:08-0400 Hourly Rounding Luis Carlos Jung [facility] Comment on above: Result Comment: Patient ambulatory off u nit. No signs or symptoms of distress noted. 03-23-2022 20:35-0400 Hourly Rounding Luis Carlos Jung [facility] Comment on above: Result Comment: Patient updated on plan of care. Verbalizes understanding. Call light in reach. 03-23-2022 19:49-0400 Blood Pressure Location Luis Carlos Jung [facility] 03-23-2022 19:49-0400 Body temperature 98.78 [degF] Luis Carlos Jung [facility] 03-23-2022 19:49-0400 Diastolic blood pressure 66 mm[Hg] Luis Carlos Jung [facility] 03-23-2022 19:49-0400 Heart rate 69 /min Luis Carlos Jung [facility] 03-23-2022 19:49-0400 Hourly Rounding Luis Carlos Jung [facility] Comment on above: Result Comment: Patient arrives on unit. 03-23-2022 19:49-0400 Mean blood pressure 79 mm[Hg] Luis Carlos Jung [facility] 03-23-2022 19:49-0400 Respiratory rate 16 /min Luis aCrlos Jung [facility] 03-23-2022 19:49-0400 Systolic blood pressure 106 mm[Hg] Luis Carlos Jung [facility] 10-14-2020 13:15-0500 Pulse (Heart Rate) 74 /min [facility] 10-14-2020 13:15-0500 Pulse Oximetry 98 % [facility] 10-14-2020 13:15-0500 Respiratory Rate 16 /min [facility] 10-14-2020 13:00-0500 BP Diastolic 74 mm[Hg] [facility] 10-14-2020 13:00-0500 BP Systolic 123 mm[Hg] [facility] 10-14-2020 10:13-0500 BMI (Body Mass Index) 34.33 kg/m2 [facility] 10-14-2020 10:13-0500 Body Temperature 97.81 [degF] [facility] 10-14-2020 10:13-0500 Body weight 90.72 kg [facility] 10-14-2020 10:13-0500 Height 162.6 cm Regine Chow [facility] 08-09-2020 20:33-0400 BP Diastolic 81 mm[Hg] Bakari Sencera [facility] [place] 08-09-2020 20:33-0400 BP Systolic 122 mm[Hg] [facility] [place] 08-09-2020 20:33-0400 Pulse (Heart Rate) 78 /min [facility] [place] [facility] 20:33-0400 Respiratory Rate 16 /min [facility] [place] 08-09-2020 19:03-0400 BMI (Body Mass Index) 39.48 kg/m2 [facility] [place] 08-09-2020 19:03-0400 Body Temperature 98.29 [degF] [facility] [place] 08-09-2020 19:03-0400 Body weight 104.33 kg [facility] [place] 08-09-2020 19:03-0400 Height 162.6 cm [facility] [place] 08-09-2020 19:03-0400 Pulse Oximetry 98 % [facility] [employer] [place], [place] Encounters Encounter Date Encounter Type Care Provider Facility Start: 04-08-2025 End: 04-08-2025 Clinisync Result Encounter Rashaun Perry DO Work Phone: [facility] Unsolicited Start: 04-08-2025 End: 04-08-2025 Clinisync Result Encounter Rashaun Perry DO Work Phone: [facility] Unsolicited Start: 03-17-2025 End: 03-17-2025 Bamboo flowsheet Rashaun Perry DO Work Phone: [facility] Start: 03-17-2025 End: 03-17-2025 Bamboo flowsheet Rashaun Perry DO Work Phone: [facility] Start: 03-17-2025 End: 03-17-2025 ambulatory RASHAUN PERRY Not Available Start: 03-17-2025 End: 03-17-2025 Office outpatient visit 15 minutes Rashaun Perry DO Work Phone: [facility] Comment on above: Pre-op examination; Pelvic pain; Dysmenorrhea; Dyspareunia in female; Menorrhagia with irregular cycle Start: 03-17-2025 End: 03-17-2025 Preprocedural examination done Rashaun Perry DO Work Phone: [facility] Start: 02-04-2025 End: 02-04-2025 Office outpatient visit 15 minutes Rashaun Perry DO Work Phone: [facility] Comment on above: Menorrhagia with reg ular cycle; Crampy pain associated with menses; History of endometrial ablation; Dysmenorrhea Start: 02-04-2025 End: 02-04-2025 ambulatory RASHAUN PERRY Not Available Start: 02-04-2025 End: 02-04-2025 Bamboo flowsheet Rashaun Perry DO Work Phone: [facility] Start: 02-04-2025 End: 02-04-2025 Bamboo flowsheet Rashaun Perry DO Work Phone: [facility] Start: 01-10-2025 End: 01-11-2025 ambulatory ZORAN MYRICK [place] Start: 01-10-2025 End: 01-11-2025 Patient encounter procedure ZORAN MYRICK [facility] Start: 11-21-2024 End: 11-21-2024 Clinisync Result Encounter Rashaun Perry DO Work Phone: [facility] External Department Unsolicited Start: 11-21-2024 End: 11-21-2024 Clinisync Result Encounter Rashaun Perry DO Work Phone: [facility] External Department Unsolicited Start: 11-12-2024 End: 11-13-2024 Clinisync Result Encounter Rashaun Perry DO Work Phone: [facility] Unsolicited Start: 11-12-2024 End: 11-13-2024 Clinisync Result Encounter Rashaun Perry DO Work Phone: [facility] Unsolicited Start: 11-06-2024 End: 11-06-2024 Patient encounter procedure Rashaun Perry DO Work Phone: [facility] Comment on above: Pre-op examination; Menorrhagia with regular cycle; Abnormal uterine bleeding; Pelvic pain in female Start: 11-06-2024 End: 11-06-2024 Preprocedural examination done Rashaun Perry DO Work Phone: [facility] Start: 11-06-2024 End: 11-06-2024 ambulatory Rashaunleoncio Thompsono Facility:[facility] Start: 10-02-2024 End: 10-02-2024 Clinisync Result Encounter Rashaun Perry DO Work Phone: [facility] Unsolicited Start: 10-02-2024 End: 10-02-2024 Clinisync Result Encounter Rashaun Perry DO Work Phone: [facility] Unsolicited Start: 09-09-2024 End: 09-09-2024 Office outpatient visit 15 minutes Rashaun Perry DO Work Phone: [facility] Comment on above: Menorrhagia with reg ular cycle Start: 03-11-2024 ambulatory ZORANFAINA MYRICK [facility] Start: 03-11-2024 End: 03-11-2024 ambulatory ZORANFAINA MYRICK [facility] Start: 02-08-2024 End: 02-08-2024 ambulatory [employer] [place] [employer] Dept Work Phone: [facility] Work Phone: Start: 02-08-2024 End: 02-08-2024 Departed Referred [facility] Work Phone: [facility] Start: 11-27-2023 Bamboo flowsheet Rashaun Thompsono D O Work Phone: [facility] [...] Hypothyroidism (acquired) (CMS/HCC) Start: 11-20-2023 End: 11-20-2023 Office outpatient visit 15 minutes Rashaun Perry DO Work Phone: [facility] Comment on above: Third trimester preg anh Start: 11-05-2023 End: 11-30-2023 Pre-admission assessment Rashaun R PERRY [facility] Start: 11-04-2023 End: 11-04-2023 ambulatory Rashaun R PERRY [place] Start: 11-04-2023 End: 11-04-2023 OB Triage Rashaun R PERRY [facility] Start: 08-23-2023 End: 08-23-2023 Lab Drop off ZORAN MYRICK [facility] Start: 08-23-2023 End: 08-24-2023 ambulatory ZORAN MYRICK [facility] Start: 08-19-2023 End: 09-14-2023 Pre-admission assessment Julia Haywood [facility] Start: 08-18-2023 End: 08-18-2023 ambulatory DO Julia Haywood [facility] Start: 08-18-2023 End: 08-18-2023 OB Triage Julia Gonsalez Yobany [facility] Start: 07-25-2023 End: 07-25-2023 Emergency department patient visit Kristian Guillermo [facility] Start: 07-25-2023 End: 07-25-2023 Emergency department patient visit Kristian Guillermo [facility] Start: 06-28-2023 End: 06-29-2023 ambulatory Roverto V. Spasic [facility] Start: 06-28-2023 End: 06-28-2023 Patient encounter procedure Roverto V. Spasic [facility] Start: 06-14-2023 End: 06-14-2023 Emergency department patient visit Kristian Guillermo [facility] Start: 06-14-2023 End: 06-14-2023 Emergency department patient visit Kristian Guillermo [facility] Start: 06-12-2023 End: 06-13-2023 ambulatory Luis Carlos Jung [facility] Start: 06-12-2023 End: 06-12-2023 Patient encounter procedure Luis Carlos Jung [facility] Start: 05-21-2023 End: 05-22-2023 Emergency department patient visit Gopi Rodriguez [facility] Start: 05-21-2023 End: 05-21-2023 Emergency department patient visit Gopi Rodriguez [facility] Start: 04-30-2023 End: 05-01-2023 ambulatory Luis Carlos Jung [facility] Start: 04-30-2023 End: 04-30-2023 Lab Drop off Luis Carlos Byrd Fabiana [facility] Start: 04-30-2023 End: 05-01-2023 ambulatory Luis Carlos Rochelle Jung [facility] Start: 04-30-2023 End: 04-30-2023 Patient encounter procedure Luis Carlos Rochelle Jung [facility] Start: 04-26-2023 End: 04-26-2023 Emergency department patient visit Laura Noel Facility[facility] Start: 04-26-2023 End: 04-26-2023 Emergency department [facility] Start: 01-31-2023 End: 01-31-2023 Emergency department patient visit Kristian Guillermo [facility] Start: 09-22-2022 End: 09-22-2022 OB Triage Luis Carlos Rochelle Jung [facility] Start: 09-20-2022 End: 09-20-2022 OB Triage Luis Carlos Byrd Fabiana [facility] Start: 09-19-2022 End: 09-19-2022 OB Triage Jj MOOREDIETER [facility] Start: 09-14-2022 End: 09-14-2022 OB Triage Luis Carlos Byrd Fabiana [facility] Start: 09-12-2022 End: 09-12-2022 OB Triage Luis Carlos Byrd Fabiana [facility] Start: 09-08-2022 End: 09-08-2022 OB Triage Luis Carlos Rochelle Jung [facility] Start: 09-05-2022 End: 09-05-2022 Emergency department patient visit Gopi Rodriguez [facility] Start: 09-05-2022 End: 12-05-2022 Patient encounter procedure SELF REFERRAL [facility] Start: 09-04-2022 End: 09-04-2022 Lab Drop off Luis Carlos Byrd Fabiana [facility] Start: 08-30-2022 End: 08-31-2022 OB Triage Luis Carlos Rochelle Jung [facility] Start: 08-22-2022 End: 08-22-2022 OB Triage Luis Carlos Rochelle Jung [facility] Start: 08-18-2022 End: 08-18-2022 OB Triage Luis Carlos Rochelle Jung [facility] Start: 08-13-2022 End: 08-13-2022 OB Triage Luis Carlos Byrd Fabiana [facility] Start: 07-26-2022 End: 07-26-2022 OB Triage Luis Carlos Byrd Fabiana [facility] Start: 07-17-2022 End: 07-17-2022 Emergency department patient visit Ko Dumas [facility] Start: 06-28-2022 End: 06-28-2022 Patient encounter procedure Luis Carlos Jung [facility] Start: 06-26-2022 End: 06-26-2022 OB Triage Luis Carlos Jung [facility] Start: 06-20-2022 End: 07-15-2022 Pre-admission assessment Luis Carlos Jung [facility] Start: 06-18-2022 End: 06-19-2022 OB Triage Luis Carlos Jung [facility] Start: 05-02-2022 End: 06-15-2022 Pre-admission assessment THANG MILLAN [facility] Start: 05-01-2022 End: 05-01-2022 OB Triage Luis Carlos Jung [facility] Start: 04-02-2022 End: 04-02-2022 OB Triage Luis Carlos Jung [facility] Start: 03-23-2022 End: 03-23-2022 OB Triage Luis Carlos Jung [facility] Start: 03-16-2022 End: 03-16-2022 Patient encounter procedure Luis Carlos Rochelle Jung [facility] Start: 02-15-2022 End: 02-15-2022 Lab Drop off Luis Carlos Jung [facility] Start: 02-23-2021 End: 02-23-2021 Patient encounter procedure Martha Webb MD Work Phone: [facility] Start: 02-23-2021 Results Only Martha Webb MD Work Phone: Gastroenterology Start: 10-14-2020 End: 10-14-2020 Emergency department patient visit PHYSICIAN RONN [facility] Start: 10-14-2020 End: 10-14-2020 Emergency department patient visit Regine Chow Work Phone: [facility] Comment on above: Vertigo (Primary Dx) Start: 08-09-2020 End: 08-09-2020 Emergency department patient visit [facility] Start: 08-09-2020 End: 08-09-2020 Emergency department patient visit Bakari White [facility] Work Phone: [facility] Comment on above: Contusion of right k nee, initial encounter (Primary Dx); Contusion of multiple sites of right shoulder and upper arm, initial encounter Start: 07-23-2017 End: 07-23-2017 Emergency department patient visit NKECHI TORRES [facility] Procedures Date Procedure Procedure Detail Performing Clinician Start: 04-08-2025 ALL CBC WITH AUTO DIFF Rashaun Perry DO Work Phone: Start: 02-04-2025 Urnls dip stick/tablet rgnt non-auto w/o micrscp Arshaun Perry DO Work Phone: Start: 11-21-2024 ALL CBC WITH AUTO DIFF Rashaun Perry DO Work Phone: Start: 11-12-2024 XR CHEST 2V Rashaun Perry [...] 10-14-2020 CT of head without contrast Susan Elkinsa Madhavlod Work Phone: Start: 10-14-2020 LIGHT BLUE TOP Regine Chow Work Phone: Start: 10-14-2020 LIGHT GREEN TOP Regine Chow Work Phone: Start: 10-14-2020 Basic metabolic 1998 panel - Serum or Plasma Susan Elkinsa Madhavclive Work Phone: Start: 10-14-2020 Complete blood count with white cell differential, automated Susan Margarita Madhavlod Work Phone: Start: 10-14-2020 Complete blood count with white cell differential, manual Susan Margarita Madhavlod Work Phone: Start: 10-14-2020 COVID-19/INFLUENZA A,B [...] 05-12-2028 Tetanus vaccination Tetanus: Every 1 0yrs [facility] Start: 04-30-2028 Screening for malign ant neoplasm of cervix [facility] Start: 06-15-2025 Influenza vaccination Influenz a Vaccine (Season Ended) [facility] Start: 05-27-2025 End: 05-27-2025 Patient encounter procedure 05/27/2025 8:30 AM EDT Office Visit [facility] [address] [place] [id number] Michelle Vogel PA [address] [place] [address] [facility] Start: 04-22-2025 End: 04-22-2025 Patient encounter procedure 04/22/2025 8:30 AM EDT Office Visit [facility] [address] [place] [place] [id number] Michelle Vogel PA [address] [place] [address] [facility] Start: 03-17-2025 End: 03-17-2025 Patient encounter procedure 03/17/2025 9:10 AM EDT [facility] [address] [place] [phone] Rashaun Amador, DO [address] [place] [address] [facility] Start: 02-04-2025 End: 02-04-2025 Patient encounter procedure 02/04/2025 2:20 PM EDT [facility] [address] [place] [phone] Rashaun Amador, DO [address] [place] [address] Arrived [facility] Comment on above: Arrived Start: 10-27-2024 End: 10-27-2024 Patient encounter procedure 10/27/2024 10:30 AM EST Procedure Visit [facility] [address] [place] [phone] Rashaun Amador, DO [address] [place] [address] [facility] Start: 09-09-2024 End: 09-09-2025 aPTT in Blood by Coagulation assay APTT Lab Routine Menorrhagia with regular cycle Expected: 09/09/2024 (Approximate), Expires: 09/09/2025 [facility] Comment on above: Expected: 09/09/2024 (Approximate), Expires: 09/09/2025 Start: 09-09-2024 End: 09-09-2025 US for US PELVIS-TRANSVAG IF INDICATED Imaging Routine Menorrhagia with regular cycle Expected: 09/09/2024 (Approximate), Expires: 09/09/2025 [facility] Comment on above: Expected: 09/09/2024 (Approximate), Expires: 09/09/2025 Start: 06-15-2024 Influenza vaccination Influenza Vacc ine (#1) [facility] Start: 01-22-2024 End: 01-22-2024 Patient encounter procedure 01/22/2024 8:40 AM EDT Consult [facility] [address] [place] [phone] Rashaun Amador, DO [address] [place], [place] [id number] [facility] Start: 12-04-2023 End: 12-04-2023 Patient encounter procedure 12/04/2023 9:00 AM EST Routine [facility] [address] [place] [address] Rashaun Amador, DO [address] [place], [place] [id number] [facility] Start: 11-27-2023 End: 11-27-2024 Strep B DNA probe, amplification Strep B DNA probe, amplification Lab Routine Third trimester Expected: 11/27/2023 (Approximate), Expires: 11/27/2024 [facility] Work Phone: Comment on above: Expected: 11/27/2023 (Approximate), Expires: 11/27/2024 Start: 11-27-2023 End: 11-27-2023 Patient encounter procedure [facility] Comment on above: Arrived Start: 11-21-2023 End: 11-21-2023 Professional / ancillary services management 11/21/2023 8:30 AM EST Ancillary Procedure [facility] [address] [place] [address] [facility] Start: 06-15-2021 Influenza vaccination INFLUENZ A (Season Ended) [facility] Start: 06-15-2020 Influenza vaccination Flu vaccine (# 1) [place], [place] Start: 2014 PAP TESTING PAP TESTING [facility] Start: 2014 Screening for malign ant neoplasm of cervix Cervical cancer screen [place], [place] Start: 2012 DTaP/Tdap/Td vaccine (1 - Tdap) DTaP/Tdap/Td vaccine (1 - Tdap) [place] Start: 2012 Urine microalbumin profile DTAP,TDAP,TD (1 - Tdap) [facility] Start: 2011 Hepatitis C antibody , confirmatory test Hepatitis C Screening [facility] Start: 2011 HEPATITIS C SCREENING HEPATITIS C SC YUE [facility] Start: 2011 HIV SCREENING HIV SCREENING [facility] Start: 2008 HIV screening [place], [place] Start: 2005 Adolescent depressio n screening assessment [facility] Start: 2004 HPV vaccine (1 - 2-d ose series) HPV vaccine (1 - 2-dose series) [place], [place] Start: 1996 History and physical examination, annual for health maintenance Wellness Visit [facility] Start: 1994 Varicella vaccine (1 of 2 - 2-dose childhood series) Varicella vaccine (1 of 2 - 2-dose childhood series) [place], [place] Start: 1993 Screening for malign ant neoplasm of cervix Pap Smear [facility] CBC W Auto Different ial panel - Blood CBC and differential Lab Routine Menorrhagia with regular cycle Ordered: 09/09/2024 [facility] Work Phone: Comment on above: Ordered: 09/09/2024 hCG, quantitative, hCG, quantitative, Lab Routine Menorrhagia with regular cycle Ordered: 09/09/2024 [facility] Comment on above: Ordered: 09/09/2024 Hemoglobin A1c/Hemoglobin.total in Blood Hemoglobin A1c Lab Routine Menorrhagia with regular cycle Ordered: 09/09/2024 [facility] Comment on above: Ordered: 09/09/2024 Prothrombin time (PT ) in Blood by Coagulation assay Protime-INR Lab Routine Menorrhagia with regular cycle Ordered: 09/09/2024 [facility] Comment on above: Ordered: 09/09/2024 PT ED PATIENT INFORMATION PT ED PATIENT INFORMATION Other 02/23/2021 [facility] Thyrotropin [Units/volume] in Serum or Plasma TSH Lab Routine Menorrhagia with regular cycle Ordered: 09/09/2024 [facility] Comment on above: Ordered: 09/09/2024 Thyroxine (T4) free [Mass/volume] in Serum or Plasma T4, free Lab Routine Menorrhagia with regular cycle Ordered: 09/09/2024 [facility] Comment on above: Ordered: 09/09/2024 [facility] Immunizations Immunization Date Immunization Notes Care Provider Lennox ramirez 08-18-2023 influenza, seasonal, injectable Julia Andryra [facility] 08-18-2023 influenza virus vaccine, unspecified formulation Rashaun Amador DO Work Phone: [facility] 09-25-2022 influenza, seasonal, injectable SELF REFERRAL [facility] Comment on above: Early/Late Reason: E isaac/Late Reason: Nursing Judgment 01-28-2021 COVID-19, mRNA, LNP- S, PF, 30 mcg/0.3 mL dose; Translations: [Pfizer-BioNTech COVID-19 Vaccine] Luis Carlos Fabiana [facility] Comment on above: Reason for Medicatio n: Prophylaxis Reason for Medicatio n: Prophylaxis 12-31-2020 COVID-19, mRNA, LNP- S, PF, 30 mcg/0.3 mL dose; Translations: [Pfizer-BioNTech COVID-19 Vaccine] Luis Carlos [employer] [facility] Comment on above: Reason for Medicatio n: Prophylaxis Reason for Medicatio n: Prophylaxis 05-12-2018 tetanus toxoid, reduced diphtheria toxoid, and acellular pertussis vaccine, adsorbed; Translations: [Adacel (Tdap)] Luis Carlos Fabiana [facility] Payers Date Payer Category Payer Self-pay [id number] 2023 Unknown [id number] 2022 Medicaid [employer] [place] [id number] 2022-Present [address] [place] [address] [id number] 2022 Medicaid (Managed Care) [facility] MEDICAID [id number] 2019 Unknown [id number] 2019 Unknown [id number]. [id number] 1993 Unknown [id number] 2.16.840.1.006172.3.579.2. 173 1993 Unknown [id number] 2.16.840.1.313342.3.579.2. 903 1993 Unknown [id number] 2.16.840.1.838360.3.579.2. 727 1993 Unknown [id number] 2.16.840.1.961617.3.579.2. 727 1993 Unknown [id number] 2.16.840.1.363205.3.579.2. 727 1993 Unknown [id number] 2.16.840.1.853406.3.579.2. 727 1993 Unknown [id number] 2.16.840.1.386839.3.579.2. 727 1993 Unknown [id number] 2.16.840.1.706304.3.579.2. 727 1993 Unknown [id number] 2.16.840.1.834268.3.579.2. 727 1993 Unknown [id number] 2.16.840.1.205260.3.579.2. 727 1993 Unknown [id number] 2.16.840.1.828232.3.579.2. 727 1993 Unknown [id number] 2.16.840.1.476838.3.579.2. 727 1993 Unknown [id number] 2.16.840.1.627030.3.579.2. 727 1993 Unknown [id number] 2.16.840.1.030107.3.579.2. 727 1993 Unknown [id number] 2.16.840.1.859483.3.579.2. 727 1993 Unknown [id number] 2.16.840.1.219765.3.579.2. 727 1993 Unknown [id number] 2.16.840.1.561443.3.579.2. 1259 1993 Unknown [id number] 2.16.840.1.674210.3.579.2. 1259 1993 Unknown [id number] 2.16.840.1.293012.3.579.2. 1259 Unknown [id number] 2.16.840.1.875490.3.579.2. 531 Unknown [id number] 2.16.840.1.759319.3.579.2. 531 Social History Date Type Detail Facility Start: 08-09-2020 End: 10-14-2020 Tobacco smoking status NHIS Current every day smoker [place] Start: 08-09-2020 End: 10-14-2020 Tobacco use and exposure Never used [place] Start: 10-14-2020 Alcohol intake Ex-drinker (finding) [facility] Start: 1995 Sex Assigned At Not on file [place] Exposure to SARS-CoV -2 (event) Not sure [place] Start: 08-09-2020 Cigarettes smoked current (pack per day) - Reported [place] Start: 08-09-2020 Alcohol intake Lifetime non-d val (finding) [place] Start: 08-09-2020 History SDOH Alcohol Frequency 1 [place] Start: 07-06-2021 End: 08-18-2022 Tobacco smoking status Light tobacco smoker (finding) [facility] Sex Assigned At Female [facility] Tobacco [facility] Comment on above: current current denies Start: 06-28-2023 Tobacco smoking status Ex-smoker (fi nding) [facility] Comment on above: current Tobacco smoking status Never [facility] Comment on above: current Tobacco smoking status [facility] Tobacco smoking stat [facility] Tobacco smoking consumption unknown [facility] Start: 04-02-2023 [facility] Start: 1995 Sex Assigned At Female [facility] Start: 07-03-2023 Gender identity Identifies as female gender (finding) [facility] Start: 07-03-2023 Sexual orientation Heterosexual (fin ding) [facility] Start: 04-10-[address] [facility] Smoker (finding) [facility] Start: 01-26-2010 Sex Female (finding) [facility] Goals Date Patient Goal Desired Activity /State Personal health goal Functional Status Date Assessment Result Facility 11-04-2023 Functional Status N/A [facility] 08-18-2023 Functional Status N/A [facility] 07-25-2023 Functional Status N/A [facility] 06-28-2023 Functional Status N/A [facility] 06-14-2023 Functional Status N/A [facility] 05-21-2023 Functional Status N/A [facility] 04-26-2023 Functional Status N/A [facility] 01-31-2023 Functional Status N/A [facility] 09-22-2022 Functional Status N/A [facility] 09-20-2022 Functional Status N/A [facility] 09-19-2022 Functional Status N/A [facility] 09-14-2022 Functional Status N/A [facility] 09-12-2022 Functional Status N/A [facility] 09-08-2022 Functional Status N/A [facility] 09-05-2022 Functional Status Yes [facility] 08-30-2022 Functional Status N/A [facility] 08-22-2022 Functional Status N/A [facility] 08-18-2022 Functional Status N/A [facility] 08-13-2022 Functional Status N/A [facility] 07-26-2022 Functional Status N/A [facility] 07-17-2022 Functional Status N/A [facility] 06-26-2022 Functional Status N/A [facility] 06-18-2022 Functional Status N/A [facility] 05-01-2022 Functional Status N/A [facility] 04-02-2022 Functional Status N/A [facility] Clinical Notes 03-10-2021 to 03-17-2025 Nanci Ugalde - 03/17/2025 9:10 AM Harpal Suggs LPN - 02/04/2025 2:20 PM Alicia Hewitt - 11/06/2024 9:30 AM Alessandro Suggs LPN - 09/09/2024 8:50 AM EST Note Date & Type Note Facility 03-17-2025 History of Present illness Narrative Reason for Appointment: Patient ID: Susan Bro is a 29 y.o. female who presents for Pre-op Visit Patient presents today for Pre Op appointment. Patient is scheduled to undergo Da Rachelle assisted Laparoscopic Hysterectomy, possible exploratory laparotomy, possible BSO, possible cystoscopy on 04/15/[address] Amador at [facility]. MEDICATIONS Current Outpatient Medications Medication Instructions citalopram (CELEXA) 20 mg, Oral, Daily levothyroxine (SYNTHROID) 125 mcg, Oral, Daily before breakfast metFORMIN (OSM) (FORTAMET) 500 mg, Daily with evening meal phentermine (ADIPEX-P) 37.5 mg, Daily before breakfast ALLERGIES Allergies Allergen Reactions Amoxicillin Penicillins Other [...] Surgical History: Procedure Laterality Date CHOLECYSTECTOMY 2019 ENDOMETRIAL ABLATION 11/2024 SALPINGECTOMY Bilateral 02/08/[address] Amador at [facility] REVIEW OF SYSTEMS Review of Systems: Review of Systems Constitutional: Negative. HENT: Negative. Eyes: Negative. Respiratory: Negative. Cardiovascular: Negative. Gastrointestinal: Negative. Genitourinary: Positive for dyspareunia, menstrual problem and pelvic pain. Musculoskeletal: Negative. [...] nursing note reviewed. Exam conducted with a pin attacher present. Vitals: Estimated body mass index is 38.79 kg/m as calculated from the following: Height as of 01/22/24: 5' 3 . Weight as of 02/04/25: 219 lb. BP: No LMP recorded. ASSESSMENT & PLAN ICD-10-CM 1. Pre-op examination Z01.818 2. Pelvic pain R10.2 3. Dysmenorrhea N94.6 4. Dyspareunia in female N94.10 5. Menorrhagia with irregular cycle N92.1 Pre Op: Patient is doing well but has complaints of pelvic pain, dysmenorrhea, dyspareunia, menorrhagia. I have discussed conservative management vs. surgical management with the patient in detail and patient desires surgical management at this time. Patient will undergo Da Rachelle assisted Laparoscopic Hysterectomy, possible exploratory laparotomy, possible BSO, possible cystoscopy on 04/15/25. Surgical consents were signed, mmc was reviewed, and patient is to proceed to [facility] OR. Follow Up: Patient is to follow up at 1 & 6 weeks post operative to assess proper healing and recovery from procedure. Documented by Althea Suggs LPN on behalf of: Rashaun Amador DO documented in this encounter [facility] 02-04-2025 History of Present illness Narrative Reason for Appointment: Patient ID: Susan Bro is a 29 y.o. female who presents for Menorrhagia (Pt present today for heavy cycles and cramping. Pt had an ablation on 11/21/2024.) Patient presents today for Consult appointment. and Follow up appointment to discuss results. MEDICATIONS Current Outpatient Medications Medication Instructions citalopram [...] Bilateral 02/08/[address] Amador at [facility] REVIEW OF SYSTEMS Review of Systems: Review of Systems Constitutional: Negative. HENT: Negative. Eyes: Negative. Respiratory: Negative. Cardiovascular: Negative. Gastrointestinal: Negative. Genitourinary: Positive for dyspareunia, menstrual problem and pelvic pain. Musculoskeletal: Negative. [...] nursing note reviewed. Exam conducted with a pin attacher present. Vitals: Estimated body mass index is 38.79 kg/m as calculated from the following: Height as of 01/22/24: 5' 3 . Weight as of this encounter: 219 lb. BP: 114/72 No LMP recorded (lmp unknown). ASSESSMENT & PLAN ICD-10-CM 1. Menorrhagia with regular cycle N92.0 POCT urinalysis dipstick manually resulted 2. Crampy pain associated with menses N94.6 POCT urinalysis dipstick manually resulted 3. History of endometrial ablation Z98.890 4. Dysmenorrhea N94.6 Pt had endometrial ablation in Nov, still having heavy painful periods, cramping with periods, and dyspareunia. Pt desires surgical management. Pt to be scheduled for robotic hysterectomy. Pt to return for preop exam. Documented by Althea Suggs LPN on behalf of: Rashaun Amador DO documented in this encounter [facility] 01-10-2025 Evaluation + Plan note Diagnostic Tests PendingT3 Total 01/10/25DHEAS 01/10/25Testosterone F&T 01/10/25Insulin Level Total 01/10/25Cortisol 01/10/25 [facility] 11-06-2024 History of Present illness Narrative Reason for Appointment: Patient ID: Susan Bro is a 29 y.o. female who presents for EMBX and Pre-op Visit Patient presents today for Pre Op/Endometrial Biopsy appointment. Patient is scheduled to undergo Endometrial Ablation with Jacey on 11/21/[address] Amador at [facility]. MEDICATIONS Current Outpatient Medications Medication Instructions [...] Bilateral 02/08/[address] Amador at [facility] REVIEW OF SYSTEMS Review of Systems: [...] nursing note reviewed. Exam conducted with a pin attacher present. Vitals: Estimated body mass index is [...] reviewed, and patient is to proceed to [facility] OR. Follow Up: Patient is to follow up between 1-2 weeks post op to assess proper healing and recovery from procedure. Follow Up: Patient is to follow up between 1-2 weeks post op to assess proper healing and recovery from procedure. Documented by Charlene Duarte LPN on behalf of: Rashaun Amador DO documented in this encounter [facility] 09-09-2024 History of Present illness Narrative [...] nursing note reviewed. Exam conducted with a pin attacher present. Vitals: Estimated body mass index is [...] Rashaun Amador DO documented in this encounter [facility] 11-27-2023 History of Present illness Narrative [...] nursing note reviewed. Exam conducted with a pin attacher present. Vitals: There is no height or weight on file to calculate BMI. BP: 114/78 Patient's last menstrual period was 03/19/2023. Assessment/Plan Encounter Diagnoses Name Primary? Third trimester Hypothyroidism (acquired) ([facility]) Patient is doing well but has complaints [...] Rashaun Amador DO documented in this encounter [facility] 11-20-2023 History of Present illness Narrative [...] nursing note reviewed. Exam conducted with a pin attacher present. Vitals: There is no height or [...] Rashaun Amador DO documented in this encounter [facility] 11-04-2023 Evaluation + Plan note Diagnostic Tests PendingUrine Culture 11/04/23 [facility] 11-04-2023 Note The following Patien t Education Materials have been given to the patient: [facility] Discharge instructions Follow Up Care 11/04/2023 07:55:34 With:Rashaun AMADOR Address: [address] , [place] [address] Business (1) When:11/06/2023 Comments:Call for any problems.Appointment has already been scheduledCall physician if symptoms worsenPlease call if you need to rescheduleReturn for contractions closer, longer, harderReturn for decreased movementReturn if ruptured membranes or vaginal bleeding [facility] 08-23-2023 Evaluation + Plan note Diagnostic Tests PendingT3 Total 08/23/23 [facility] 08-18-2023 Note The following Patien t Education Materials have been given to the patient: [facility] 08-18-2023 Hospital Discharge instructions Patient Education 08/18/2023 08:14:46 Second Trimester of , Kwwn-vd-Vdsu Second Trimester of The second trimester of [...] Follow these instructions at home: Medicines Take djuk-jhb-swdhrjj and prescription medicines only as told by [...] a counselor. Where to find more information [employer]: americanpregnancy.org [employer]: www.acog.org Office [...] provider. Document Revised: 03/09/2021 Document Reviewed: 01/13/2021 [employer] Patient Education 2022 [employer]. [facility] 07-25-2023 Evaluation + Plan note [...] Diagnostic Tests Pending * Urine Culture 07/25/23 [facility]10-11-2023 Hospital Discharge instructions Patient Education [...] to keep your urine pale yellow. Take ytdq-gxn-njqskos and prescription medicines only as told by [...] provider. Document Revised: 06/14/2021 Document Reviewed: 06/14/2021 [employer] Patient Education 2022 [employer]. Follow Up Care 07/25/2023 08:14:26 With:Luis Carlos Jung Address: [address] [place] [address] [facility] (1) When:07/28/2023 09:56:27 [facility]09-14-2023 Evaluation + Plan note Diagnostic Tests Pending * Urine Culture 06/28/23 [facility]09-14-2023 Hospital Discharge instructions Patient Education 06/28/2023 11:39:14 Urinary Tract Infection, Adult, Mvsk-la-Smnl Urinary Tract Infection, Adult A urinary tract [...] Follow these instructions at home: Medicines Take qhph-lbh-zygneek and prescription medicines only as told by [...] provider. Document Revised: 05/13/2021 Document Reviewed: 05/13/2021 [employer] Patient Education 2022 [employer]. 06/28/2023 11:39:14 Urinary Tract Infection, Adult, Ztkq-ds-Wxen Urinary Tract Infection, Adult A urinary tract [...] Follow these instructions at home: Medicines Take wvrn-xcc-wousocq and prescription medicines only as told by [...] provider. Document Revised: 05/13/2021 Document Reviewed: 05/13/2021 [employer] Patient Education 2022 [employer]. Follow Up Care 06/28/2023 10:22:58 With:Fabiana MARION, Luis Carlos Byrd, SAMPSON Address: [address] [place], [place] [id number]- When: Unknown [facility] 08-31-2023 Evaluation + Plan noteExtracted from: Title:ED Note Author:Jos Ugalde PA-C te:06/14/23 1. Abdominal pain (R10.9: Un specified abdominal pain) Orders: ABO/Rh Automated Diff Basic Metabolic Panel Beta hCG Quantitative CBC w/ Auto Diff eGFR Extra Blue Tube Extra SST Tube Hepatic Function Panel Lipase Level UA With Cult Reflex US 1st Trimester [facility]08-08-2023 Hospital Discharge instructions Patient Education 05/21/2023 23:23:44 Nonspecific Chest Pain, Adult, Szjt-nb-Lxqf Nonspecific Chest Pain Chest pain can be [...] Follow these instructions at home: Medicines Take nbqs-itz-irilzqy and prescription medicines only as told by [...] a heart-healthy diet. A diet and nutrition services manager (dietitian) can help you to learn healthy [...] provider. Document Revised: 12/15/2021 Document Reviewed: 12/15/2021 [employer] Patient Education 2022 [employer]. 05/21/2023 23:23:44 Nausea and Vomiting, Adult, Xhau-jn-Xclf Nausea and Vomiting, Adult Nausea is feeling [...] fruit juice). ?Low-calorie sports drinks. Eat bland, zhau-nn-uvcycm foods in small amounts as you are able, such as: ?Bananas. ?Applesauce. ?Rice. ?Low-fat (lean) meats. ?White Water. ?Crackers. Avoid drinking fluids that have a lot of sugar or caffeine in them. This includes energy drinks, sports drinks, and soda. Avoid alcohol. Avoid spicy or fatty foods. General instructions Take nbrr-pfl-esozegj and prescription medicines only as told by your doctor. Drink enough fluid to keep your pee (urine) pale yellow. Wash your hands often with soap and water for at least 20 seconds. If you cannot use soap and water, use hand nut roaster helper. Make sure that everyone in your home [...] your doctor about eating and drinking. Take mxwm-prv-iwiehjn and prescription medicines only as told by your doctor. Contact your doctor if your symptoms get worse or you have new symptoms. Keep all follow-up visits. This information is not intended to replace advice given to you by your health care provider. Make sure you discuss any questions you have with your health care provider. Document Revised: 04/07/2022 Document Reviewed: 04/07/2022 [employer] Patient Education 2022 [employer]. 05/21/2023 23:23:44 Abdominal Pain During , Vrdr-ez-Imld Abdominal Pain During Belly (abdominal) pain is [...] keep your pee (urine) pale yellow. Take attf-gyy-jafmjgk and prescription medicines only as told by [...] provider. Document Revised: 06/14/2021 Document Reviewed: 06/14/2021 [employer] Patient Education 2022 [employer]. Follow Up Care 05/21/2023 20:38:52 With:Luis Carlos Jung Address: [address] [facility] [place] [address]- Business (1) When:05/24/2023 Comments:Take the Pepcid once daily until you have completed the course. You can use the Zofran every 6 hours as needed for nausea and vomiting. Please follow-up with your primary care doctor next 2 to 3 days. Please return to the ED for any new or worsening symptoms. [facility]08-07-2023 Evaluation + Plan noteExtracted from: [...] day(s), # 15 cap(s), Refills(s) 0, Pharmacy: [facility], 162.6, cm, 05/21/23 20:50:00 EDT, Height/Length Dosing, 75.3, kg, 05/21/23 20:50:00 EDT, Weight Dosing famotidine, 20 mg = 2 mL, Soln-IV, IV Push, Once, Stop date 05/21/23 21:00:00 EDT, STAT, Start date 05/21/23 21:00:00 EDT, 05/21/23 21:00:00 EDT famotidine, 20 mg = 1 tab(s), Oral, Daily, # 14 tab(s), Refills(s) 0, Pharmacy: [facility], 162.6, cm, 05/21/23 20:50:00 EDT, Height/Length Dosing, 75.3, kg, 05/21/23 20:50:00 EDT, Weight Dosing ondansetron, 4 mg = 2 mL, Injection, IV Push, Once, Stop date 05/21/23 21:00:00 EDT, STAT, Start date 05/21/23 21:00:00 EDT, 05/21/23 21:00:00 EDT ondansetron, 4 mg = 1 tab(s), Oral, q8hr, # 12 tab(s), Refills(s) 0, Pharmacy: [facility], 162.6, cm, 05/21/23 20:50:00 [...] UA With Cult Reflex US 1st Trimester [facility]07-17-2023 Evaluation + Plan note Diagnostic Tests Pending * PAP [id number] 04/30/23 * Urine Culture 04/30/23 [facility]07-17-2023 Evaluation + Plan note Diagnostic Tests Pending * RPR with Conf Rfx 04/30/23 * HIV Screen 4th Generation wRfx 04/30/23 * Rubella Antibody IgG 04/30/23 * Hepatitis B Surface Antigen 04/30/23 [facility]07-13-2023 Evaluation + Plan noteExtracted from: Title:ED Note Author:Jos Ugalde PA-C te:04/26/23 Abdominal pain (R10.9: Unspe cified abdominal pain) (Z34.90: Encounter for supervision of normal , unspecified, unspecified trimester) Orders: Beta hCG Quantitative Extra Lav Tube Extra SST Tube US 1st Trimester US Transvaginal [facility]07-13-2023 Hospital Discharge instructions Patient Education [...] to keep your urine pale yellow. Take shwq-fdc-rqtxofz and prescription medicines only as told by [...] provider. Document Revised: 06/14/2021 Document Reviewed: 06/14/2021 [employer] Patient Education 2022 [employer]. Follow Up Care 04/26/2023 08:52:22 With:Luis Carlos Jung Address: [address], [facility] [address] [place] [address] Business (1) When:04/29/2023 10:58:02 [facility]04-19-2023 Evaluation + Plan noteExtracted from: [...] Head eGFR Oxygen Therapy PT & PTT [facility]04-19-2023 Hospital Discharge instructions Patient Education [...] Follow these instructions at home: Medicines Take hiia-vek-poivouy and prescription medicines only as told by your health care provider. Ask your health care provider if the medicine prescribed to you: ?Requires you to avoid driving or using heavy machinery. ?Can cause constipation. You may need to take these actions to prevent or treat constipation: ?Drink enough fluid to keep your urine pale yellow. ?Take tbje-kuu-wlwouaa or prescription medicines. ?Eat foods that are [...] provider. Document Revised: 01/23/2020 Document Reviewed: 11/13/2019 [employer] Patient Education 2022 [employer]. Follow Up Care 01/31/2023 09:42:02 With:THANG MILLAN Address: [address] [place], [place] [id number] [facility] (1) When:02/03/2023 11:57:07 Comments:Call the office [...] fever, or any new or worsening symptoms. [facility]12-09-2022 Hospital Discharge instructions Follow Up Care 09/22/2022 15:11:14 With:Luis Carlos Jung Address: [address], [facility] [address] [place] [address] Business (1) When:09/24/2022 20:30:00 Comments:Appointment has already been scheduledCall for any problems.Call for fever > 100.5 FCall for severe abdominal painCall physician for heavy vaginal bleedingCall physician if symptoms worsenReturn for contractions closer, longer, harderReturn for decreased movementReturn if ruptured membranes or vaginal bleedingCall at 7:30 pm Sunday to confirm induction at 8:30 [facility]12-06-2022 Hospital Discharge instructions Follow Up Care 09/19/2022 01:24:08 With:Luis Carlos Jung Address: [address], [facility] [address] [place] [address]- Business (1) When:09/20/2022 Comments:Appointment has already been scheduledCall Dr if fever>100.5 F, heavy bleedingCall for any problems.Call for severe abdominal painCall physician for heavy vaginal bleedingCall physician if symptoms worsenReturn for contractions closer, longer, harderPlease call if you need to rescheduleReturn for decreased movementReturn if ruptured membranes or vaginal bleeding [facility]12-01-2022 Hospital Discharge instructions Patient Education 09/14/2022 11:56:10 Sinus Headache, Ypnq-iq-Pnkp Sinus Headache A sinus headache happens when [...] on the bottle or box. Medicines Take bvkz-qzx-tpacdzx and prescription medicines only as told by [...] face, forehead, ears, or upper teeth. Take wtxe-avz-cdpgevp and prescription medicines only as told by your doctor. If told, apply a warm, moist washcloth to your face. This can help to lessen pain. This information is not intended to replace advice given to you by your health care provider. Make sure you discuss any questions you have with your health care provider. Document Released: 01/31/2012 Document Revised: 09/13/2018 Document Reviewed: 07/12/2018 [employer] Patient Education 2020 [employer]. Follow Up Care 09/14/2022 09:13:06 With:Luis Carlos Jung Address: [address], [facility] [address] [place] [address]- Business (1) When:09/20/2022 Comments:Return if ruptured membranes or vaginal bleedingReturn for decreased movementReturn for contractions closer, longer, harderCall physician if symptoms worsenCall for severe abdominal painCall for fever > 100.5 F Drink 8-10 glasses of water/day Use SUDAFED, TYLENOL AND BENADRYL as previouslydirected by Dr Jung [facility]11-29-2022 Hospital Discharge instructions Patient Education 09/12/2022 20:39:28 Third Trimester of , Trju-lq-Duoe Third Trimester of The third trimester is from week 28 through week 40 (months 7 through 9). This trimester is when your unborn baby (fetus) is growing very fast. At the end of the ninth month, the unborn baby is about20 inches in length. It weighs about 6 10 pounds. Follow these instructions at home: Medicines Take oigg-rsf-dikofvo and prescription medicines only as told by [...] 12/26/2010 Document Revised: 01/22/2020 Document Reviewed: 11/06/2017 [employer] Patient Education 2020 [employer]change Follow Up Care 09/12/2022 19:44:10 With:Luis Carlos Jung Address: [address], [facility] [address] [place] [address]- Business (1) When:09/20/2022 Comments:Appointment has already been scheduledCall Dr if fever>100.5 F, heavy bleedingCall for any problems.Call for severe abdominal painCall physician for heavy vaginal bleedingCall physician if symptoms worsenPlease call if you need to rescheduleReturn for contractions closer, longer, harderReturn for decreased movementReturn if ruptured membranes or vaginal bleeding [facility]11-25-2022 Hospital Discharge instructions Follow Up Care 09/08/2022 08:14:23 With:Luis Carlos Jung Address: [address], [facility] [address] [place] [address]- Business (1) When:09/11/2022 Comments:Return for contractions closer, longer, harderReturn for decreased movementReturn if rupturedmembranes or vaginal bleeding [facility]11-23-2022 Hospital Discharge instructions Patient Education [...] the coronavirus come from? In September 2019, [place] told the World Health Organization (WHO) of several cases of lung disease (human respiratory illness). These cases were linked to an open seafood and livestock market in the city of [facility]. The link to the seafood and [...] and virus naming World Health Organization (WHO): www.who.int/emergencies/diseases/eybck-lgmdzobfcay-0964/technical-g uidance/sjuurx-sfd-isphdhmcwwy-disease-(covid-2019)-bwy-rbm-sdwom-oisp-jnfpgb-eh Who is at risk for complications from [...] relieve his or her symptoms by using bapc-obq-nftnopj medicines that treat sneezing, coughing, and runny [...] water are not available, use alcohol-based hand nut roaster helper. Avoid touching your face, mouth, nose, or [...] Prevention (CDC): www.cdc.gov/coronavirus/2019-ncov/travelers/index.html World Health Organization (WHO): www.who.int/emergencies/diseases/qsoqg-esdxokvstjy-9288/travel-advice Know the risks and take action to [...] water are not available, use alcohol-based hand nut roaster helper. Cough or sneeze into a tissue, sleeve, [...] in hot, soapy water or use a research development director. Air-dry your dishes. Wash laundry in [...] Health Organization (WHO) Information and news updates: www.who.int/emergencies/diseases/aaznh-rzgdlemwvkj-2340 Coronavirus health topic: www.who.int/health-topics/coronavirus Questions and answers on COVID-19: www.who.int/news-room/q-a-detail/d-v-amtbcyzfwnabi Global tracker: [employer] [place] [employer] (AAP) Information for families: www.healthychildren.org/[place]/health-issues/conditions/chest-lungs/Pages /9483-Cmwul-Rnzdulmqmui.aspx The coronavirus situation is changing rapidly. Check your local health authority website or the [facility] WHO websites for updates and news. When [...] 01/27/2020 Document Revised: 01/27/2020 Document Reviewed: 01/27/2020 [employer] Patient Education 2020 [employer] 09/05/2022 22:13:40 COVID-19 COVID-19 COVID-19 is [...] managed at home with rest, fluids, and ezov-hdr-ajfnkbd medicines. Treatment for a serious infection usually [...] are safe for you. General instructions Take cgsn-lvd-ezgwode and prescription medicines only as told by [...] water are not available, usean alcohol-based hand nut roaster helper. ?Avoid touching your mouth, face, eyes, or [...] water are not available, use alcohol-based hand nut roaster helper. Stay away from other members of your [...] 11/06/2019 Document Revised: 02/26/2020 Document Reviewed: 11/06/2019 [employer] Patient Education 2020 [employer]. Follow Up Care 09/05/2022 20:08:29 With:Luis Carlos Jung Address: [facility] [address] [address] Business (1) When:09/08/2022 21:42:10 Comments:Use the albuterol inhaler 2 puffs every 4 hours for the next 2 to 3 days, you can use the Zofran every 6 hours as needed for nausea and vomiting. Please follow-up with your primary care doctor in thenext 2 to 3 days. Please return to the ED for any new or worsening symptoms. With:THANG MILLAN Address: [address] [place] [address] Business (1) When:09/08/2022 21:42:06 [facility]11-22-2022 Evaluation + Plan noteExtracted from: [...] Nausea/Vomiting, # 12 tab(s), Refills(s) 0, Pharmacy: [facility], 163, cm, 09/05/22 20:14:00 [...] & PTT [place] [place] Saline Lock Insert Troponin 0 Hr. XR Chest Single View Future Appointments Appointment Date:09/06/2022 07:00:00 AM Scheduled Provider: Location:.LAB Appointment Type:Outpatient COVID Testing [facility]11-21-2022 Evaluation + Plan note Diagnostic Tests Pending * Group B Streptococcus colonization by PCR 09/04/22 [facility]11-17-2022 Hospital Discharge instructions Patient Education 08/31/2022 00:56:47 Third Trimester of , Qicm-ss-Khfl Third Trimester of The third trimester is from week 28 through week 40 (months 7 through 9). This trimester is when your unborn baby (fetus) is growing very fast. At the end of the ninth month, the unborn baby is about20 inches in length. It weighs about 6 10 pounds. Follow these instructions at home: Medicines Take iget-rlm-dirvhlc and prescription medicines only as told by [...] 12/26/2010 Document Revised: 01/22/2020 Document Reviewed: 11/06/2017 Elsevier Patient Education 2020 [employer]. Follow Up Care 08/30/2022 21:31:53 With:Luis Carlos Jung Address: [address] [address] [facility] [address] [place] [address] Business (1) When:09/04/2022 Comments:Call for any problems.Call for severe abdominal painCall physician for heavy vaginal bleedingReturnfor contractions closer, longer, harderReturn for decreased movementReturn if ruptured membranes or vaginal bleeding [facility]11-08-2022 Hospital Discharge instructions Follow Up Care 08/22/2022 14:58:59 With:Dr. 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 [facility]11-04-2022 Evaluation + Plan note Diagnostic Tests Pending * Urine Culture 08/18/22 [facility]11-04-2022 Hospital Discharge instructions Follow Up Care 08/18/2022 03:47:49 With:Luis Carlos Jung Address: [address] [facility] [address] [place] [address] Business (1) When:08/21/2022 08:45:00 Comments:Appointment has already been scheduled, please keep scheduled apptCall for any problems.Call physician if symptoms worsen [facility]10-30-2022 Hospital Discharge instructions Patient Education [...] 09/21/2003 Document Revised: 06/25/2018 Document Reviewed: 04/30/2017 [employer] Patient Education [employer]. Follow Up Care 08/13/2022 17:29:42 With:Luis Carlos Jung [facility] [address] [facility] [address] [place] [address]- Business (1) When:1 to 2 days Comments:Call for any problems.Return for contractions closer, longer, harderReturn for decreased movementReturn if ruptured membranes or vaginal bleeding [facility]10-13-2022 Hospital Discharge instructions Follow Up Care 07/27/2022 01:12:54 With:Dr. Jung [phone] Address:Unknown When:09/24/2022 20:30:00 Comments:Call for any problems.Return if ruptured membranes or vaginal bleedingReturn for decreased movementcontractions every 5 minutes lasting 45 seconds for an hourCall Sunday night at 7:30 PM to assure bed availability for induction [facility]10-12-2022 Hospital Discharge instructions Patient Education [...] Follow these instructions at home: Medicines Take lwkf-tga-xghsuma and prescription medicines only as told by [...] as fried or sweet foods. ?Take an zgjg-wow-korbnwn or prescription medicine for constipation. If you [...] 12/28/2009 Document Revised: 05/28/2019 Document Reviewed: 11/11/2018 [employer] Patient Education 2020 [employer]. Follow Up Care 07/26/2022 07:56:25 With:Luis Carlos Jung Address: [facility] [address] [place] [id number] [facility] (1) When:08/07/2022 07:45:00 [facility]10-03-2022 Evaluation + Plan noteExtracted from: Title:ED Note Author:Hi Carmona PA-C te:07/17/22 UTI (urinary tract infection ) (N39.0: Urinary tract infection, site not specified) Orders: cephalexin, 500 mg = 1 cap(s), Oral, q12hr, X 5 day(s), # 10 cap(s), Refills(s) 0, Pharmacy: [facility], 162.5, cm, 07/17/22 9:09:00 EDT, Height/Length Dosing, 80, kg, 07/17/22 9:09:00 EDT, Weight Dosing Patient Specific Meds, Each, Misc, Once, Stop date 07/17/22 9:10:34 EDT, Physician Stop, 07/17/22 9:10:34 EDT Influenza A&B Ag Rapid COVID Antigen [place] UA With Cult Reflex [facility]10-03-2022 Hospital Discharge instructions Patient Education [...] 01/26/2012 Document Revised: 01/23/2020 Document Reviewed: 09/04/2019 [employer] Patient Education 2020 [employer]. 07/17/2022 09:55:44 Urinary Tract Infection, Adult Urinary [...] Treatment for this condition includes: Antibiotic medicine. Gzso-cwz-oyagyez medicines to treat discomfort. Drinking enough water [...] Follow these instructions at home: Medicines Take fzor-wov-ajkdtgz and prescription medicines only as told by [...] 07/11/2006 Document Revised: 09/18/2019 Document Reviewed: 04/10/2019 [employer] Patient Education 2020 [employer]. Follow Up Care 07/17/2022 09:04:38 With:Luis Carlos Jung Address: [address] [facility] [address] [place] [address] Business (1) When:07/20/2022 09:46:49 With:THANG MILLAN Address: [address] [place] [address] Business (1) When:07/20/2022 09:46:41 Comments:Follow-up with your primary care provider in 3 to 5 days. If symptoms worsen, do not improve, or new symptoms arise please report back to emergency department for further evaluation. [facility]09-14-2022 Evaluation + Plan note Diagnostic Tests Pending * RPR with Conf Rfx 06/28/22 [facility]09-12-2022 Hospital Discharge instructions Patient Education [...] 09/21/2003 Document Revised: 06/25/2018 Document Reviewed: 04/30/2017 [employer] Patient Education 2020 [employer]. 06/26/2022 21:35:59 Form - Movement Counts Movement [...] 10/31/2007 Document Revised: 10/21/2019 Document Reviewed: 11/09/2016 [employer] Patient Education 2020 [employer]. Follow Up Care 06/26/2022 20:41:33 With:Luis Carlos Jung Address: [address] [address] Business (1) When:07/03/2022 07:45:00 Comments:Call for any problems.Please call if you need to rescheduleReturn for decreased movement [facility]09-05-2022 Hospital Discharge instructions Follow Up Care 06/18/2022 23:33:38 With:Luis Carlos Jung Address: [address] [facility] [address] [place] [address]- Business (1) When:5 to 7 days Comments:Appointment has already been scheduledCall for any problems.Call for fever > 100.5 FCall for severe abdominal painCall physician for heavy vaginal bleedingPlease call if you need to rescheduleReturn for contractions closer, longer, harderReturn for decreased movementReturn if ruptured membranes or vaginal bleeding [facility]07-18-2022 Hospital Discharge instructions Follow Up Care 05/01/2022 17:08:54 With:Luis Carlos Jung Address: [address], [address] [place] [id number]- [facility] (1) When:05/09/2022 Comments:Return if ruptured membranes or vaginal bleedingReturn for contractions closer, longer, harderCall physician if symptoms worsenCall physician for heavy vaginal bleedingCall for severe abdominal painCall for fever > 100.5 FCall for any problems. drink more fluids including gatorade, take milk of magnesia twice /day until yo u have bowel movements, benefiber daily [facility]06-19-2022 Evaluation + Plan note Diagnostic Tests Pending * Urine Culture 04/02/22 [facility]06-19-2022 Hospital Discharge instructions Patient Education 04/02/2022 10:22:48 Second Trimester of , Mxma-vr-Jnpc Second Trimester of The second trimester is [...] Follow these instructions at home: Medicines Take idkz-gxq-yananjk and prescription medicines only as told by [...] 12/26/2010 Document Revised: 01/23/2020 Document Reviewed: 11/06/2017 [employer] Patient Education 2020 [employer] 04/02/2022 10:22:48 Vaginal Bleeding During , [...] says that this is safe. Medicines Take kknh-zrh-eodmpyf and prescription medicines only as told by [...] 07/11/2006 Document Revised: 01/20/2020 Document Reviewed: 01/03/2018 [employer] Patient Education 2020 [employer]. Follow Up Care 04/02/2022 06:00:26 With:Dr. Jung [phone] Address:Unknown When:2 to 3 days Comments:Call for any problems.Call physician if symptoms worsen [facility]06-09-2022 Hospital Discharge instructions Patient Education 03/23/2022 20:39:21 Second Trimester of , Qbyw-rw-Ghuj Second Trimester of The second trimester is [...] Follow these instructions at home: Medicines Take gare-gtd-wfaegkw and prescription medicines only as told by [...] 12/26/2010 Document Revised: 01/23/2020 Document Reviewed: 11/06/2017 [employer] Patient Education 2020 [employer]. 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 Avoid [...] grounds. You are around people who have Croatian measles, fifth disease, or chickenpox. You have [...] 03/19/2009 Document Revised: 01/22/2020 Document Reviewed: 10/09/2017 [employer] Patient Education 2020 [employer]. 03/23/2022 20:39:21 Abdominal Pain During , Syto-vc-Yaal Abdominal Pain During Belly (abdominal) pain is [...] keep your pee (urine) pale yellow. Take wksd-itr-kcfpjev and prescription medicines only as told by [...] 09/19/2010 Document Revised: 01/19/2020 Document Reviewed: 01/03/2018 [employer] Patient Education 2020 [employer]. Follow Up Care 03/23/2022 19:35:57 With:Luis Carlos Jung Address: [facility] [place], [address] [address] Business (1) When:03/27/2022 10:00:00 Comments:Call for any problems. Call [facility] [place], ask to speak directly to Dr. Jung before heading to hospital unless an emergency. Call for severe abdominal pain or worsening pain.Return if vaginal bleedingor ruptured membranes.Wear belly band as much as possible, especially as your belly grows in . [facility]05-04-2022 Evaluation + Plan note Diagnostic Tests Pending * RPR with Conf Rfx 02/15/22 * HIV Screen 4th Generation wRfx 02/15/22 * Rubella Antibody IgG 02/15/22 * Hepatitis B Surface Antigen 02/15/22 * Urine Culture 02/15/22 [facility]06-18-2021 NoteHNO ID: [id number] Author: Bert Negrete, DO Service: ? Author Type: Fellow Type: Progress Notes Filed: 04/01/2021 9:15 AM Note Text: [facility] [address] [place], [place] [address] Martha Webb (Kelsey) [address] [facility] [address] PCP: Thang Millan NP Accompanied by: Mother [...] bed and continue this dose - rizatriptan (MAXALT-DIRECT MARKETING REPRESENTATIVE) 10 mg disintegrating tablet Take 1 tablet [...] Transformed Score (ran (more content not included)... [facility]06-10-2021 NoteHNO ID: [id number] Author: RT Oliva(R) Service: Nuclear Medicine Author Type: Emergency Department Coordinator Type: Progress Notes Filed: 03/24/2021 9:39 [...] 0740 PATIENT DISCHARGED TO: Ambulatory patient, left [place] department area. A Diagnostic radioactive procedure has taken place, with no further precautions necessary other than routine body substance precautions. More information regarding radiation safety can be found using this link: [email or web address] SIGNATURE: RT Oliva(R) PATIENT NAME: Susan Bro DATE: March 24, 2021 TIME: 9:38 AM PAGER/CONTACT #:[facility]05-27-2021 NoteHNO ID: [id number] Author: Martha Webb MD Service: ? Author [...] biliary ductal dilatation is (more content not included)...[facility]* Diagnosis Third trimester state, incidental documented in this encounter [facility] HealthcareEvaluation note* Diagnosis Third trimester state, incidental Hypothyroidism (acquired) (CMS/[facility]) Unspecified hypothyroidism documented in this encounter [facility] HealthcareEvaluation noteNo assessment information availableUk Healthcare Work Phone: Evaluation note* Diagnosis Menorrhagia with regular cycle documented in this encounter [facility] HealthcareEvaluation note* Diagnosis Pre-op examination Menorrhagia with regular cycle Abnormal uterine bleeding Unspecified disorder of menstruation and other abnormal bleeding from female genital tract Pelvic pain in female Unspecified symptom associated with female genital organs documented in this encounter [facility] HealthcareEvaluation note* Diagnosis Menorrhagia with regular cycle Crampy pain associated with menses History of endometrial ablation Dysmenorrhea [facility] Diagnosis Pre-op examination Pelvic pain Dysmenorrhea Dyspareunia in female Menorrhagia with irregular cycle [facility] Narrative No data available for this section [facility] No data available for this section [facility] No data available for this section [facility] Summary Purpose Family History Relationship Condition Age at Onset Recorded Date/T ping Not Specified Goiter Unknown grandparent Heart disease Unknown Not Specified Diabetes mellitus Unknown Hypertension Unknown Advance Directives Documents on File Type Date Recorded Patient Chiller Operator Expl anation Advance Directives and Livin g Will 10/14/2020 10:22 AM Documents on File Type Date Recorded Patient Chiller Operator Expl anation ACP-Advance Directive ACP-Power of Site Reliability Engineer Advance Directive Response Recorded Date/ Time Advance Directives No July 24, 2019 9:00am Discharge Instructions * Discharge Instr - Care Coordination* Andra Schmid RN - 10/14/2020 11:43 AM EST [facility] Trust the experts at [facility] to meet your healthcare needs. When you make an appointment with [facility], it's the start of a long-lasting partnership that's committed to your health. We provide the very best prevention, wellness and illness care, and give you access to the advanced medical services and expert treatment available at [facility]. Please note that the provider listed below is accepting patients in your area. [place]: [address] [place] [address] MD Debby Lala MD Christina Spring, CNP For the most up-to-date information on a care provider in your community, use the Find a Doctor tool on [employer] [facility] Primary [facility] * Attachments The following attachments cannot be sent through Care Everywhere. * Vertigo (Namibian) * Arik Maneuver: Vertigo: Exercises (Namibian) documented in this encounter* Instructions* Bakari Valente [...] be sent through Care Everywhere. * Bruises (Namibian) * Contusion (Namibian) documented in this encounter Assessments Diagnosis Vertigo- Primary Dizziness and giddiness Diagnosis Contusion of right knee, initial encounter Contusion of multiple sites of right shoulder and upper arm, initial encounter Additional Source Comments INFORMATION SOURCE (unrecogn ized section and content) DATE CREATED AUTHOR 04/09/2018 [facility] DATE CREATED AUTHOR AUTHOR'S ORGANIZ ATION 08/10/2020 [facility] DATE CREATED AUTHOR AUTHOR'S ORGANIZ ATION 09/07/2020 [facility] DATE CREATED AUTHOR AUTHOR'S ORGANIZ ATION 10/20/2020 [facility] DATE CREATED AUTHOR AUTHOR'S ORGANIZ ATION 03/18/2021 [facility] DATE CREATED AUTHOR AUTHOR'S ORGANIZ ATION 11/15/2021 [facility] DATE CREATED AUTHOR AUTHOR'S ORGANIZ ATION 03/13/2024 [place] [facility] DATE CREATED AUTHOR AUTHOR'S ORGANIZ ATION 11/13/2024 [facility] DATE CREATED AUTHOR AUTHOR'S ORGANIZ ATION 01/11/2025 [facility] DATE CREATED AUTHOR AUTHOR'S ORGANIZ ATION 01/16/2025 [facility] DATE CREATED AUTHOR AUTHOR'S ORGANIZ ATION 01/23/2025 [place] [facility] DATE CREATED AUTHOR AUTHOR'S ORGANIZ ATION 03/18/2025 [facility] dical Specialists EPIC Reason for Visit (unrecogniz ed section and content) Reason Comments Dizziness Reason Comments Knee Pain right knee pain, 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 denies hitting head or any LOC Shoulder Pain rt shoulder, fell ov er dust guzman onto her right side. Reason Comments Routine Visit Reason Comments Menstrual Problem Heavy cycles Reason Comments EMBX Pre-op Visit Reason Comments Menorrhagia Pt present today for heavy cycles and cramping. Pt had an ablation on 11/21/2024. Reason Comments Pre-op Visit Susan Griffiths PA-C - 10/14/2020 10:44 AM Amena Cantrell RN - 10/14/2020 10:32 AM JANETTE ED Notes (unrecognized secti on and content) [facility] ED Note: NAME: Susan Bro 24 y.o. CSN: [id number] PCP: Physician No History: Chief Complaint: Dizziness [...] file Gets together: Not on file Attends hinduism service: Not on file Active member of [...] does have reproducible vertigo with position changes. Fbqesj-ui-lovm maneuvers are intact without dysmetria. There is negative Romberg sign. There was no ataxia on ambulation. Psychiatric: Mood and Affect: Mood normal. Behavior: Behavior normal. Thought Content: Thought content normal. Laboratory & Radiological Imaging (if done): Labs Reviewed URINALYSIS - Abnormal; Notable for the following components: Result Value Clarity, Urine Cloudy (*) Specific [place] 1.028 (*) pH, Urine 8.0 (*) Protein, [...] at the following links: For Healthcare Providers: https://www.[employer].gov/media/452611/download For Patients: https://www.fda.gov/media/409189/download HCG URINE, QUALITATIVE - Normal CBC AND DIFFERENTIAL Narrative: The following orders were created for panel order CBC w/ Diff. Procedure Abnormality Status --------- ------ CBC Auto Differential[[id number]] Abnormal Final result Please view results for [...] Antivert. She is referred to follow-[facility] with [facility] or [place] that she does not currently have a [...] needed for dizziness . Susan Griffiths Physicians Technician [employer] [facility] Susan Griffiths PA-C 10/14/20 1203 Special isolation precautions are in place with signage outside this patient's room. This child care education coordinator performs hand hygiene and enters the patient [...] Practice Provider (AZEEM) needed any assistance. The ZAEEM evaluated the patient independently for a complaint [...] or prosecute any alcohol or drug abuse patient.[facility] Care Team (unrecognized sect ion and content) Team Status: Active Member Role Status Dates [facility] Primary Care Provider Active Team Status: Inactive Member Role Status Dates [facility] Primary Care Provider Active Start: February 08, 2024 End: February 08, 2024 Rashaun mAador Attending Provider Active Start: 2023 End: February [...] BE BASED ON THE PRIMARY CLINICAL RECORDS. [employer] [facility]. provides no warranty or guarantee of the accuracy or completeness of information in this document.
--- OUTSIDE RECORDS SUMMARY | 2025-04-15 06:22 | XMS_ITS | Encounter Summary ---
Author Organization [facility] Address [address] [place] [address] Care Team Providers Care Recreational Specialist Name Role Phone Unavailable Primary Care Provider Unavailabl e Encounter Details Date Type Department Care Team (Late st Contact Info) Description 08/08/2023 Abstract [facility] [address] [place] [address] Rashaun Amador DO [address] [place], [facility] Social History Tobacco Use Types Packs/Day Years [...] Visit [facility] [address] [place] [address] Michelle Vogel PA [address] [place], [facility] 05/27/2025 8:30 AM EDT Office Visit [facility] [address] [place] [address] Michelle Vogel PA [address] [place] [address] documented as of this encounter Goals Goal Patient Goal Type Associated Problems Recent Progress Patient-Stated? Author Reminders Care Plan OB Reminders No Open Scheduling, Background documented as of this encounter Visit Diagnoses Not on filedocumented in this encounter Additional Health Concerns Active Problems Noted Date Diagnosed Date OB Reminders 07/17/2023 documented as of this encounter
--- OUTSIDE RECORDS SUMMARY | 2025-04-15 06:22 | XMS_ITS | Encounter Summary ---
Author Organization [facility] Address [address] [place] [address] Care Team Providers Care Customs Compliance Analyst Name Role Phone Unavailable Primary Care Provider Unavailabl e Encounter Details Date Type Department Care Team (Late st Contact Info) Description 11/13/2023 Clinisync Result Encounter [facility] External Department Unsolicited Rashaun Amador DO [address] [place], [facility] Social History Tobacco Use Types Packs/Day [...] 04/22/2025 8:30 AM EDT Office Visit [facility] OB [address] [place] [address] Michelle Vogel PA [address] [place], [place] [address] 05/27/2025 8:30 AM EDT Office Visit [facility] [address] [facility] [place] [address] Michelle Vogel, PA [address] [place], [facility] documented as of this encounter Goals [...] AM EST Narrative 11/13/2023 9:57 [place] [address] Ultrasound Report Signed Patient: DEANDRA MOCTEZUMA MR#: [id number] : 1995 Acct:[id number] Age/Sex: 28 / F ADM Date: 11/13/23 Loc: [facility] 250-[address]: Rashaun Amador D.O. Ordering Physician: Rashaun Amador D.O. Date of Service: 11/13/23 Procedure(s): US OB BPP w non-stress Accession Number(s): [id number] cc: Rashaun Amador D.O.; Physician,Non-Staff M.Jordy [place] [address] Patient Name: DEANDRA MOCTEZUMA MRN: [id number] date: 1995 Sex: F Assigned Patient Location: [facility] Current Patient Location: [facility] Accession/Order Number: [id number] Exam Date: 11/13/2023 09:00 Report Date: 11/13/2023 [...] M.D. Signed By: 11/13/23956 DD/ 4 TD/TT: First Crusher: Procedure Note Radiology, Radiologist, MD - 12/19/2023 [place] [address] Ultrasound Report Signed Patient: DEANDRA MOCTEZUMA DMR#: [id number] : 1995Acct:[id number] Age/Sex: 28 FADM Date: 11/13/23 Loc: [facility] 250-[address]: Rashaun Amador D.O. Ordering Physician: Rashaun Amador D.O. Date of Service: 11/13/23 Procedure(s): US OB BPP w non-stress Accession Number(s): [id number] cc: Rashaun Amador D.O.; Physician,Non-Staff Daniel [address] [place] [address] Patient Name: DEANDRA MOCTEZUMA MRN: [id number] date: 1995 Sex: F Assigned Patient Location: [facility] Current Patient Location: [facility] Accession/Order Number: [id number] Exam Date: 11/13/2023 09:00 Report Date: 11/13/2023 [...] Silva M.D. Signed By:11/13/23 0957 DD/ TD/TT: First Crusher: us Rashaun Amador DO [facility] Final Result documented in this encounter Visit Diagnoses Not on filedocumented in this encounter Additional Health Concerns Active Problems Noted Date Diagnosed Date OB Reminders 07/17/2023 documented as of this encounter
--- OUTSIDE RECORDS SUMMARY | 2025-04-15 06:22 | XMS_ITS | Encounter Summary ---
Author Organization [facility] Address [address] [place] [address] Care Team Providers Care District Branch Manager Name Role Phone Unavailable Primary Care Provider Unavailabl e Encounter Details Date Type Department Care Team (Late st Contact Info) Description 11/21/2023 Clinisync Result Encounter [facility] External Department Unsolicited Rashaun Amador DO [address] [facility] [address] Eugene Lopez, [facility]11 Social History [...] 04/22/2025 8:30 AM EDT Office Visit [facility] OB [address] [facility] [place] [address] Michelle Vogel PA [address] [place], [place] [address] 05/27/2025 8:30 AM EDT Office Visit [facility] OB [address] [facility] [place] [address] Michelle Vogel, PA [address] [facility] [address] [place], [facility]11 documented as of [...] AM EST Narrative 11/21/2023 9:15 [place] [address] Ultrasound Report Signed Patient: DEANDRA MOCTEZUMA MR#: [id number] : 1995 Acct:[id number] Age/Sex: 28 / F ADM Date: 11/21/23 Loc: [facility] Attending Dr: Rashaun Amador D.O. Ordering Physician: Rashaun Amador D.O. Date of Service: 11/21/23 Procedure(s): US OB growth Accession Number(s): [id number] cc: Rashaun Amador D.O.; Physician,Non-Staff M.DPatricia [address] [address] Patient Name: DEANDRA MOCTEZUMA MRN: [id number]:[id number] date: 1995 Sex: F Assigned Patient Location: [facility] Current Patient Location: [facility] Accession/Order Number: [id number] Exam Date: 11/21/2023 08:29 Report Date: 11/21/2023 [...] M.D. Signed By: 11/21/23914 DD/ 1 TD/TT: Analyst Business Analysis: Procedure Note Radiology, Radiologist, MD - 12/19/2023 [place] [address] Ultrasound Report Signed Patient: DEANDRA MOCTEZUMA DMR#: [id number] : 1995Acct:[id number] Age/Sex: 28 / FADM Date: 11/21/23 Loc: [facility] Attending Dr: Rashaun Amador D.O. Ordering Physician: Rashaun Amador D.O. Date of Service: 11/21/23 Procedure(s): US OB growth Accession Number(s): [id number] cc: Rashaun Amador D.O.; Physician,Non-Staff Daniel The [place] [address] Patient Name: DEANDRA MOCTEZUMA MRN: [id number] date: 1995 Sex: F Assigned Patient Location: [facility] Current Patient Location: [facility] Accession/Order Number: [id number] Exam Date: 11/21/2023 08:29 Report Date: 11/21/2023 [...] Silva M.D. Signed By:11/21/23914 DD/ 1 TD/TT: Analyst Business Analysis: us Rashaun Amador DO [facility] Final Result documented in this encounter Visit Diagnoses Not on filedocumented in this encounter Additional Health Concerns Active Problems Noted Date Diagnosed Date OB Reminders 07/17/2023 documented as of this encounter
--- OUTSIDE RECORDS SUMMARY | 2025-04-15 06:22 | XMS_ITS | Encounter Summary ---
Author Organization [facility] Address [address] [place] [address] Care Team Providers Care Track Inspecting Supervisor Name Role Phone Unavailable Primary Care Provider Unavailabl e Encounter Details Date Type Department Care Team (Late st Contact Info) Description 11/21/2024 Abstract [facility] OB [address] [facility] [place] [address] Rashaun Amador DO [address] [place] [address] Dr Eugene Lopez, [facility]11 Social History Tobacco Use Types Packs/Day Years [...] 04/22/2025 8:30 AM EDT Office Visit [facility] [address] [facility] [place] [address] Michelle Vogel PA [facility] [place] [address] 05/27/2025 8:30 AM EDT Office Visit [facility] OB [address] [facility] [place] [address] Michelle Vogel PA [address] [facility] [address] [place], [facility]11 documented as of this encounter Goals Goal Patient Goal Type Associated Problems Recent Progress Patient-Stated? Author Reminders Care Plan OB Reminders No Open Scheduling, Background documented as of this encounter Visit Diagnoses Not on filedocumented in this encounter Additional Health Concerns Active Problems Noted Date Diagnosed Date OB Reminders 07/17/2023 documented as of this encounter
--- OUTSIDE RECORDS SUMMARY | 2025-04-15 06:22 | XMS_ITS | Encounter Summary ---
Author Organization [facility] Address [address] [place] [address] Care Team Providers Care Target Setter Name Role Phone Unavailable Primary Care Provider Unavailabl e Encounter Details Date Type Department Care Team (Late st Contact Info) Description 11/20/2023 Clinisync Result Encounter [facility] External Department Unsolicited Rashaun Amador DO [address] [facility] [address] Eugene Lopez, [facility]11 Social History Tobacco Use Types [...] 04/22/2025 8:30 AM EDT Office Visit [facility] OB [address] [facility] [place] [address] Michelle Vogel PA [address] [place], [place] [address] 05/27/2025 8:30 AM EDT Office Visit [facility] OB [address] [facility] [place] [address] Michelle Vogel, PA [address] [facility] [address] [place], [facility]11 documented as of this encounter [...] AM EST Narrative 11/20/2023 10:25 [place] [address] Ultrasound Report Signed Patient: DEANDRA MOCTEZUMA MR#: [id number] : 1995 Acct:[id number] Age/Sex: 28 / F ADM Date: 11/20/23 Loc: [facility] 250-[address]: Rashaun Amador D.O. Ordering Physician: Rashaun Amador D.O. Date of Service: 11/20/23 Procedure(s): US OB BPP w non-stress Accession Number(s): [id number] cc: Rashaun Amador D.O.; Physician,Non-Staff M.DPatricia The [address] [address] Patient Name: DEANDRA MOCTEZUMA MRN: [facility]:[id number] date: 1995 Sex: F Assigned Patient Location: [facility] Current Patient Location: [facility] Accession/Order Number: [id number] Exam Date: 11/20/2023 09:45 Report Date: 11/20/2023 [...] 8.0. Electronically authenticated by: SUSHILA ASIF Date: 11/20/2023 10:22 Dictated By: Sushila Asif M.D. Signed By: 11/20/23 1025 DD/ 1022 TD/TT: Tubing Machine Tender: Procedure Note Radiology, Radiologist, MD - 12/19/2023 [place] [address] Ultrasound Report Signed Patient: DEANDRA MOCTEZUMA DMR#: [id number] : 1995Acct:[id number] Age/Sex: 28 / FADM Date: 11/20/23 Loc: [facility] 250-[address]: Rashaun Amador D.O. Ordering Physician: Rashaun Amador D.O. Date of Service: 11/20/23 Procedure(s): US OB BPP w non-stress Accession Number(s): [id number] cc: Rashaun Amador D.O.; Physician,Non-Staff Daniel The [place] [address] Patient Name: DEANDRA MOCTEZUMA MRN: [id number] date: 1995 Sex: F Assigned Patient Location: [facility] Current Patient Location: [facility] Accession/Order Number: [id number] Exam Date: 11/20/2023 09:45 Report Date: 11/20/2023 [...] 8.0. Electronically authenticated by: SUSHILA ASIF Date: 11/20/2023 10:22 Dictated By: Sushila Asif M.D. Signed By:11/20/23 1025 DD/ 1022 TD/TT: Tubing Machine Tender: us Rashaun Prery DO [facility] Final Result documented in this encounter Visit Diagnoses Not on filedocumented in this encounter Additional Health Concerns Active Problems Noted Date Diagnosed Date OB Reminders 07/17/2023 documented as of this encounter
--- OUTSIDE RECORDS SUMMARY | 2025-04-15 06:22 | XMS_ITS | Encounter Summary ---
Author Organization [facility] Address [address] [place] [address] Care Team Providers Care Net Developer Architect Name Role Phone Unavailable Primary Care Provider Unavailabl e Encounter Details Date Type Department Care Team (Late st Contact Info) Description 11/06/2023 Clinisync Result Encounter [facility] External Department Unsolicited Rashaun Amador DO [address] [facility] [address] Eugene Lopez, [facility]11 Social History Tobacco Use Types Packs/Day Years [...] 04/22/2025 8:30 AM EDT Office Visit [facility] OB [address] [place] [address] Michelle Vogel PA [address] [place], [place] [address] 05/27/2025 8:30 AM EDT Office Visit [facility] OB [address] [facility] [place] [address] Michelle Vogel, PA [address] [facility] [place], [facility]11 documented as of this encounter Goals Goal [...] PM EST Narrative 11/06/2023 4:16 [place] [address] Ultrasound Report Signed Patient: DEANDRA MOCTEZUMA MR#: [id number] : 1995 Acct:[id number] Age/Sex: 28 / F ADM Date: 11/06/23 Loc: [place] [address]: Rashaun Amador D.O. Ordering Physician: Rashaun Amador D.O. Date of Service: 11/06/23 Procedure(s): US OB BPP w non-stress Accession Number(s): [id number] cc: Rashaun Amador D.O.; Physician,Non-Staff M.DPatricia The [address] [address] Patient Name: DEANDRA MOCTEZUMA MRN: [id number] date: 1995 Sex: F Assigned Patient Location: [facility] Current Patient Location: [facility] Accession/Order Number: [id number] Exam Date: 11/06/2023 15:30 Report Date: 11/06/2023 [...] M.D. Signed By: 11/06/231615 DD/ 13 TD/TT: In Service Coordinator: Procedure Note Radiology, Radiologist, MD - 12/19/2023 [place] [address] Ultrasound Report Signed Patient: DEANDRA MOCTEZUMA DMR#: [id number] : 1995Acct:[id number] Age/Sex: 28 / FADM Date: 11/06/23 Loc: [facility] 250-[address]: Rashaun Amador D.O. Ordering Physician: Rashaun Amador D.O. Date of Service: 11/06/23 Procedure(s): US OB BPP w non-stress Accession Number(s): [id number] cc: Rashaun Amador D.O.; Physician,Non-Staff Daniel The [place] [address] Patient Name: DEANDRA MOCTEZUMA MRN: [id number] date: 1995 Sex: F Assigned Patient Location: [facility] Current Patient Location: [facility] Accession/Order Number: [id number] Exam Date: 11/06/2023 15:30 Report Date: 11/06/2023 [...] M.D. Signed By:11/06/23 1616 DD/ 13 TD/TT: In Service Coordinator: us Rashaun Perry DO [facility] Final Result documented in this encounter Visit Diagnoses Not on filedocumented in this encounter Additional Health Concerns Active Problems Noted Date Diagnosed Date OB Reminders 07/17/2023 documented as of this encounter
--- OUTSIDE RECORDS SUMMARY | 2025-04-15 06:22 | XMS_ITS | Encounter Summary ---
Author Organization [facility] Address [address] [place] [address] Care Team Providers Care Baling Press Operator Name Role Phone Unavailable Primary Care Provider Unavailabl e Encounter Details Date Type Department Care Team (Late st Contact Info) Description 10/02/2024 Clinisync Result Encounter [facility] External Department Unsolicited Rashaun Amador DO [address] [facility] [address] [place] Lopez, [facility]11 Social History Tobacco Use [...] 04/22/2025 8:30 AM EDT Office Visit [facility] OB [address] [facility] [place] [address] Michelle Vogel PA [address] [place], [place] [address] 05/27/2025 8:30 AM EDT Office Visit [facility] OB [address] [facility] [place] [address] Michelle Vogel, PA [address] [facility] [address] [place], [facility]11 documented as [...] AM EST Narrative 10/02/2024 9:44 [place] [address] Ultrasound Report Signed Patient: DEANDRA MOCTEZUMA MR#: [id number] : 1995 Acct:[id number] Age/Sex: 28 / F ADM Date: 10/02/24 Loc: US Attending Dr: Rashaun Amador D.O. Ordering Physician: Rashaun Amador D.O. Date of Service: 10/02/24 Procedure(s): US pelvis w/ transvaginal Accession Number(s): [id number] cc: Rashaun Amador D.O.; Physician,Non-Staff M.DPatricia The [address] [address] Patient Name: DEANDRA MOCTEZUMA MRN: [id number] date: 1995 Sex: F Assigned Patient Location: US Current Patient Location: US Accession/Order Number: [id number] Exam Date: 10/02/2024 07:22 Report Date: 10/02/2024 [...] M.D. Signed By: 10/02/2444 DD/ 1 TD/TT: Vehicle Monitor Technician: Procedure Note Radiology, Radiologist, MD - 10/02/2024 [place] [address] Ultrasound Report Signed Patient: DEANDRA MOCTEZUMA DMR#: [id number] : 1995Acct:[id number] Age/Sex: 28 / FADM Date: 10/02/24 Loc: US Attending Dr: Rashaun Amador D.O. Ordering Physician: Rashaun Amador D.O. Date of Service: 10/02/24 Procedure(s): US pelvis w/ transvaginal Accession Number(s): [id number] cc: Rashaun Amador D.O.; Physician,Non-Staff Daniel The [place] [address] Patient Name: DEANDRA MOCTEZUMA MRN: [id number] date: 1995 Sex: F Assigned Patient Location: US Current Patient Location: US Accession/Order Number: [id number] Exam Date: 10/02/2024 07:22 Report Date: 10/02/2024 [...] Silva M.D. Signed By:10/02/2444 DD/ 1 TD/TT: Vehicle Monitor Technician: us Rashaun Perry DO [facility] Final Result documented in this encounter Visit Diagnoses Not on filedocumented in this encounter Additional Health Concerns Active Problems Noted Date Diagnosed Date OB Reminders 07/17/2023 documented as of this encounter
--- OUTSIDE RECORDS SUMMARY | 2025-04-15 06:22 | XMS_ITS | Encounter Summary ---
Author Organization [facility] Address [address] [place] [address] Care Team Providers Care Power Lineman Name Role Phone Unavailable Primary Care Provider Unavailabl e Encounter Details Date Type Department Care Team (Late st Contact Info) Description 12/04/2023 Clinisync Result Encounter [facility] External Department Unsolicited Rashaun Amador DO [address] [facility] [address] Eugene Lopez, [facility] [address] [address] Social History Tobacco Use Types Packs/Day [...] 8:30 AM EDT Office Visit [facility] OB [address] [facility] [place] [address] Michelle Vogel PA [address] [place], [place] [address] 05/27/2025 8:30 AM EDT Office Visit [facility] OB [address] [facility] [place] [address] Michelle Vogel, PA [address] [facility] [address] [place], [facility] [address] [address] documented as of this encounter Goals [...] AM EST Narrative 12/04/2023 10:47 [place] [address] Ultrasound Report Signed Patient: DEANDRA MOCTEZUMA MR#: [id number] : 1995 Acct:[id number] Age/Sex: 28 / F ADM Date: 12/04/23 Loc: [facility] 250-[address]: Rashaun Amador D.O. Ordering Physician: Rashaun Amador D.O. Date of Service: 12/04/23 Procedure(s): US OB BPP w non-stress Accession Number(s): [id number] cc: Rashaun Amador D.O.; Physician,Non-Staff M.DPatricia The [address] [address] Patient Name: DEANDRA MOCTEZUMA MRN: [facility]:[id number] date: 1995 Sex: F Assigned Patient Location: [facility] Current Patient Location: [facility] Accession/Order Number: [id number] Exam Date: 12/04/2023 10:10 Report Date: 12/04/2023 [...] 8.0. Electronically authenticated by: SUSHILA ASIF Date: 12/04/2023 10:44 Dictated By: Sushila Asif M.D. Signed By: 12/04/23 1047 DD/ 43 TD/TT: Identification Officer: Procedure Note Radiology, Radiologist, MD - 12/19/2023 [place] [address] Ultrasound Report Signed Patient: DEANDRA MOCTEZUMA DMR#: [id number] : 1995Acct:[id number] Age/Sex: 28 / FADM Date: 12/04/23 Loc: [facility] 250-[address]: Rashaun Amador D.O. Ordering Physician: Rashaun Amador D.O. Date of Service: 12/04/23 Procedure(s): US OB BPP w non-stress Accession Number(s): [id number] cc: Rashaun Amador D.O.; Physician,Non-Staff Daniel The [place] [id number] Patient Name: DEANDRA MOCTEZUMA MRN: [id number] date: 1995 Sex: F Assigned Patient Location: [facility] Current Patient Location: [facility] Accession/Order Number: [id number] Exam Date: 12/04/2023 10:10 Report Date: 12/04/2023 [...] 8.0. Electronically authenticated by: SUSHILA ASIF Date: 12/04/2023 10:44 Dictated By: Sushila Asif M.D. Signed By:12/04/23 1047 DD/ 1044 TD/TT: Identification Officer: us Rashaun Perry DO [facility] Final Result documented in this encounter Visit Diagnoses Not on filedocumented in this encounter Additional Health Concerns Active Problems Noted Date Diagnosed Date OB Reminders 07/17/2023 documented as of this encounter
--- OUTSIDE RECORDS SUMMARY | 2025-04-15 06:22 | XMS_ITS | Encounter Summary ---
Author Organization [facility] Address [address] [place] [address] Care Team Providers Care Hanger Off Name Role Phone Unavailable Primary Care Provider Unavailabl e Encounter Details Date Type Department Care Team (Late st Contact Info) Description 12/05/2023 Abstract [facility] OB [address] [facility] [place] [address] Rashaun Amador DO [address] [place] [address] Dr Eugene Lopez, [facility]11 Social History Tobacco Use Types Packs/Day Years [...] 8:30 AM EDT Office Visit [facility] OB [address] [facility] [address] Michelle Vogel PA [facility] [place] [address] 05/27/2025 8:30 AM EDT Office Visit [facility] OB [address] [place], [place] [address] [address] Michelle Vogel PA [address] [facility] [address] [place], [facility] documented as of this encounter Goals Goal Patient Goal Type Associated Problems Recent Progress Patient-Stated? Author Reminders Care Plan OB Reminders No Open Scheduling, Background documented as of this encounter Visit Diagnoses Not on filedocumented in this encounter Additional Health Concerns Active Problems Noted Date Diagnosed Date OB Reminders 07/17/2023 documented as of this encounter
--- OUTSIDE RECORDS SUMMARY | 2025-04-15 06:22 | XMS_ITS | Encounter Summary ---
Author Organization [facility] Address [address] [place] [address] Care Team Providers Care Battery Test Engineer Name Role Phone Unavailable Primary Care Provider Unavailabl e Encounter Details Date Type Department Care Team (Late st Contact Info) Description 10/03/2023 Clinisync Result Encounter [facility] External Department Unsolicited Rashaun Amador DO [address] [facility] [address] Eugene Lopez, [facility]11 Social History Tobacco Use Types Packs/Day Years [...] [facility] [place] [place] [id number] Michelle Vogel PA [address] [facility] [place] [address] 05/27/2025 8:30 AM EDT Office Visit [facility] OB [address] [place] [address] Michelle Vogel PA [address] [facility] [place] [address] documented as of this encounter Goals Goal [...] EST Narrative 10/03/2023 1:06 PM EST The [address] [address] Ultrasound Report Signed Patient: DEANDRA MOCTEZUMA MR#: [id number] : 1995 Acct:[id number] Age/Sex: 27 / F ADM Date: 10/03/23 Loc: US Attending Dr: Rashaun Amador D.O. Ordering Physician: Rashaun Amador D.O. Date of Service: 10/03/23 Procedure(s): US OB growth Accession Number(s): [id number] cc: Rashaun Amador D.O.; Physician,Non-Staff M.D. The [address] [address] Patient Name: DEANDRA MOCTEZUMA MRN: [id number] date: 1995 Sex: F Assigned Patient Location: US Current Patient Location: US Accession/Order Number: [id number] Exam Date: 10/03/2023 10:49 Report Date: 10/03/2023 [...] Signed By: 10/03/23 1306 DD/ 130 TD/TT: Fish Peddler: Procedure Note Radiology, Radiologist, MD - 12/19/2023 [place] [address] Ultrasound Report Signed Patient: DEANDRA MOCTEZUMA DMR#: [id number] : 1995Acct:[id number] Age/Sex: 27 / FADM Date: 10/03/23 Loc: US Attending Dr: Rashaun Amador D.O. Ordering Physician: Rashaun Amador D.O. Date of Service: 10/03/23 Procedure(s): US OB growth Accession Number(s): [id number] cc: Rashaun Amador D.O.; Physician,Non-Staff Daniel The [place] [id number] Patient Name: DEANDRA MOCTEZUMA MRN: [id number] date: 1995 Sex: F Assigned Patient Location: US Current Patient Location: Accession/Order Number: [id number] Exam Date: 10/03/2023 10:49 Report Date: 10/03/2023 [...] M.D. Signed By:10/03/23 1306 DD/ 1303 TD/TT: Fish Peddler: us Rashaun Amador DO [facility] Final Result documented in this encounter Visit Diagnoses Not on filedocumented in this encounter Additional Health Concerns Active Problems Noted Date Diagnosed Date OB Reminders 07/17/2023 documented as of this encounter
[2025-04-15 06:29] LABS: Hematocrit 42.4 % (36.0-48.0); Hemoglobin 14.2 g/dL (12.0-16.0); Immature Granulocytes Abs Auto 0.01 10^3/uL (0.00-0.03); Immature Granulocytes Pct Auto 0.1 % (0.0-0.5); Lymphocytes Absolute Auto 1.7 10^3/uL (1.2-3.8); Mean Corpuscular HGB Conc 33.5 g/dL (29.9-35.2); Mean Corpuscular Hemoglobin 29.6 pg (26.7-34.0); Mean Corpuscular Volume 88.3 fL (81.0-99.0); Platelet Count 342 10^3/uL (150-450); Red Blood Count 4.80 10^6/uL (4.20-5.40); White Blood Count 7.4 10^3/uL (4.0-11.0)
[2025-04-15] MEDS: CIPROFLOXACIN 400 MG/200 ML D5W PREMIX 200 MG IV (07:10)
[2025-04-15] MEDS: METRONIDAZOLE/SODIUM CHLORIDE 500 MG/100 ML PREMIX 100 MG IV ×2 (07:55→15:02)
--- NOTE | 2025-04-15 09:15 | P.ON_ITS ---
Brief Operative Note Date of procedure: 04/15/25 Pre-op diagnosis general: pelvic pain, menorrhagia, dysmenorrhea, dyspareunia Post-op diagnosis: same as pre-op Procedure: NAME OF PROCEDURE: ? Robotic assisted laparoscopic hysterectomy with cystoscopy PROCEDURE:? The patient was taken back to the operating room, where she was prepped and draped in the normal sterile fashion after being placed in the dorsal lithotomy position.? Patient?s anesthesia was found to be adequate.? Surgical timeout was performed using two patient identifiers.? SCDs were on and in place.? Two grams of Ancef were given prior to the surgery.? Sterile Vyas catheter was inserted.? Standard size VCare was secured to the uterine cervix and the surgeon changed gloves.? Attention then was turned to the patient's abdomen, where a supraumbilical incision was then made.? Two S retractors were used to identify the patient?s fascia.? The fascia was then tented up using Ping clamps and the patient?s fascia was incised sharply.? Patient?s abdomen was identified and entered bluntly.? The patient had the trocar placed and a pneumoperitoneum was obtained.? Approximately 4 liters of CO2 gas was used.? The camera was then placed through the trocar.? At this time, two robot trocars were placed in the patient?s left and right side, two hand widths from the midline, and this was placed under direct visualization.? Please note absent tubes were seen. The uterine ovarian ligament was identified and transected and ligated using the vessel sealer? The vessel sealer was carried down serially to the broad lig ament, to the area of the bladder flap, which was then created anteriorly, and the uterine arteries were skeletonized and sealed using the vessel sealer.? The colpotomy was made using the monopolar cautery on cut, and this was carried circumferentially, posteriorly to anteriorly, until the uterus was amputated.? The specimen was then removed intact through the vagina, without difficulty.? The vagina was then closed using two running V-Loc in a non-lock fashion.? The robot was undocked.? The abdomen was desufflated.? The skin defects were closed using 4-0 Vicryl.? Please note, the fascia was closed using 0 Vicryl.? Sponge, lap and needle counts were correct x2.? Patient was taken to recovery room in stable condition.? The patient was awakened by Anesthesia first.? Patient tolerated procedure well.?? Anesthesia: BEATAA Surgeon: Rashaun Amador Operations Advisor: Margarita Quigley Estimated blood loss (mL): 100 Pathology: other (uterus and cervix) Condition: stable Disposition: PACU Urinary Catheter Management Urinary Catheter Management Urethral: Cath placed during this visit: no
[2025-04-15] MEDS: OXYCODONE HCL/ACETAMINOPHEN 5MG/325MG 2 TAB PO (14:26)
[2025-04-15 15:47] LABS: Hematocrit 41.6 % (36.0-48.0); Hemoglobin 14.1 g/dL (12.0-16.0); Immature Granulocytes Abs Auto 0.06 10^3/uL (0.00-0.03); Immature Granulocytes Pct Auto 0.4 % (0.0-0.5); Lymphocytes Absolute Auto 0.6 10^3/uL (1.2-3.8); Mean Corpuscular HGB Conc 33.9 g/dL (29.9-35.2); Mean Corpuscular Hemoglobin 29.5 pg (26.7-34.0); Mean Corpuscular Volume 87.0 fL (81.0-99.0); Platelet Count 327 10^3/uL (150-450); Red Blood Count 4.78 10^6/uL (4.20-5.40); White Blood Count 14.0 10^3/uL (4.0-11.0)
== END 2025-04-15 16:30 | disposition home or self-care (01) ==
LOC: SURGOUT 06:19 → MS 10:44
PROVIDERS: PCP Nurse Practitioner Family; Visit Provider Obstetrics & Gynecology
PROC: (CPT 840; principal; 2025-04-15 07:30)
DX: N94.10 Unspecified dyspareunia (principal); N92.0 Excessive and frequent menstruation with regular cycle; R10.2 Pelvic and perineal pain; N94.6 Dysmenorrhea, unspecified; D25.9 Leiomyoma of uterus, unspecified; Z90.49 Acquired absence of other specified parts of digestive tract; F17.290 Nicotine dependence, other tobacco product, uncomplicated; E03.9 Hypothyroidism, unspecified
CPT/HCPCS: 58570; 36415; 82948; 84702; 85025; 94667; J0131; J0744; J1100; J1171; J1836; J1885; J2250; J2405; J2704; J3010